=== PATIENT | female | born 1965 | race Caucasian/White ===

== ENCOUNTER 2022-04-08 16:44 | Emergency (ER) | payer OTHER, SELFPAY ==
[2022-04-08 16:55] VITALS: BP 136/81; PULSE 78; RESP 20; TEMP 36.7; O2SAT 99; BMI 26.6
--- NOTE | 2022-04-08 19:12 | PC.NURSE ---
Assumed care of pt Pt c/o worsening pain to LT wrist. Per pt, has RA and complicated injury to wristt from years ago. Pt been receiving cortisone shot for RA but implementation manager stopped it because pt was told she was in remission from RA. Last shot was in January. Per pt, pain has been worsening since and has not taken any pain medication. Denies any new injuries No obvious swelling/deformity
--- NOTE | 2022-04-08 19:21 | ED_ITS ---
HPI - Extremity Problem General Chief complaint: Extremity Problem Stated complaint: L hand pain Time Seen by Provider: 04/08/22 19:21 Source: patient Mode of arrival: ambulatory Limitations: no limitations History of Present Illness HPI Narrative: Patient with History of rheumatoid arthritis taking Humira injections every 2 weeks and steroid shots in the wrist joints every 3 months comes here for increasing pain left wrist for last 1 week patient has seen geropsychologist 1 week ago and he does not think that patient has active rheumatoid arthritis thinks that patient is in remission patient unable to sleep because of pain no paresthesias no recent injury no other joints involved Related Data Previous Rx's Medication Instructions Recorded tramadol 50 mg tablet 50 mg PO Q6H PRN #20 tab 04/08/22 Allergies Allergy/AdvReac Type Severity Reaction Status Date / Time erythromycin base Allergy Hives Verified 04/08/22 16:57 Review of Systems Review of Systems: Yes all other systems are reviewed and are negative PMFSH Social History Social History Advance Directives: No Advance Directives Information Provided: No Physical Exam Vital Signs: Vital Signs: Last Vital Signs Temp 98.0 F 04/08/22 16:55 Pulse 78 04/08/22 16:55 Resp 20 04/08/22 16:55 BP 136/81 04/08/22 16:55 Pulse Ox 99 04/08/22 16:55 BMI result Body Mass Index 26.6 Const: General: comfortable and no acute distress Extrem: Elbow/forearm/wrist images: 1. 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
[2022-04-08] MEDS: dexAMETHasone 2 MG TABLET 10 MG PO (20:15)
[2022-04-08] MEDS: traMADoL HCL 50 MG TABLET PO (20:15)
== END 2022-04-08 20:19 | disposition home or self-care (01) ==
LOC: HO.ED 20:06
PROVIDERS: Emergency Provider Internal Medicine; PCP Internal Medicine
DX: M19.032 Primary osteoarthritis, left wrist (principal); M06.9 Rheumatoid arthritis, unspecified; Z79.899 Other long term (current) drug therapy
CPT/HCPCS: 99282; 99283; J8540

== ENCOUNTER 2022-04-11 06:28 | Emergency (ER) | payer OTHER, SELFPAY ==
--- NOTE | ~2022-04-11 | XR_ITS ---
EXAMINATION: LEFT HAND AND WRIST. CLINICAL INFORMATION: Pain and erythema. History of rheumatoid arthritis COMPARISON: None TECHNIQUE: 4 views FINDINGS: There are small osseous fragment seen adjacent to the distal radial scaphoid joint with no bony erosive changes. There is no acute fracture or dislocation seen. There is no deformity involving the MCP joints. There is minimal loss of PIP and DIP joints. 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 XR/XR hand wrist LT IMPRESSION: Multiple osseous bodies seen adjacent to the radioscaphoid joint and dorsal wrist as well as volar aspect of wrist. No acute fracture or lytic process seen. There is mild dorsal and volar wrist soft tissue swelling. The findings could represent early rheumatoid arthritis however superimposed degenerative arthritis is suspected. There is no visible acute fracture or dislocation.
[2022-04-11 06:39] VITALS: BP 115/78; PULSE 84; RESP 18; TEMP 36.1; O2SAT 98; BMI 26.6
--- NOTE | 2022-04-11 07:46 | ED_ITS ---
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 Related Data Previous Rx's Medication Instructions Recorded tramadol 50 mg tablet 50 mg PO Q6H PRN #20 tab 04/08/22 ketorolac 10 mg tablet 10 mg PO Q6H PRN 5 Days #20 tab 04/11/22 Allergies Allergy/AdvReac Type Severity Reaction Status Date / Time erythromycin base Allergy Hives Verified 04/08/22 16:57 Review of Systems Review of Systems: Pertinent positives and negatives as stated in HPI 10 point review of systems is otherwise negative. PMFSH Past Medical History Source: nursing notes reviewed Social History Social History Advance Directives: No Advance Directives Information Provided: No Physical Exam ED Vital Signs: Vital Signs - 24 hr 04/11/22 06:39 04/11/22 09:29 Temperature 97.0 F Pulse Rate 84 68 Respiratory Rate 18 16 Blood Pressure 115/78 105/73 Pulse Oximetry 98 98 BMI result Body Mass Index 26.6 VITAL SIGNS: Reviewed. GENERAL: Well developed, well nourished, in no acute distress. HEAD: Normocephalic/atraumatic EYES: PERRLA, EOMI EARS: Ext canals without abnormality NOSE: Nares patent bilateral OROPHARYNX: no oral lesions noted, posterior pharynx clear LUNGS: Normal breath sounds. No adventitious sounds or accessory muscle use. SpO2<98> CARDIOVASCULAR: Regular rate and rhythm without noted murmurs ABDOMEN: Soft, non-tender, non-distended with bowel sounds. LEFT HAND: There is mild erythema at the base of the left thumb without induration patient is noted to be able to move digits without significant difficulty and there does not appear to be significant swelling of any the remaining joints of that hand. SKIN: Inspection of the skin reveals no rashes NEUROLOGIC: Alert and oriented x 4. Strength and sensation to light touch were grossly intact x 4. Course Course Course Narrative: 56-year-old female with history and clinical presentation consistent with possible RA flare but she was seen here 3 days ago and given enough tramadol for 4 days, unsure if she has completely depleted her supply of tramadol and is back for more pain medication. Although she does not report prednisone or Decadron in her allergies she reported to the previous provider as well as myself that she cannot take steroids for a vague reason. She denies any traumatic event of this hand. Review of imaging studies: Multiple osseous bodies seen adjacent to the radioscaphoid joint and dorsal wrist as well as volar aspect of wrist. No acute fracture or lytic process seen. There is mild dorsal and volar wrist soft tissue swelling. The findings could represent early rheumatoid arthritis however superimposed degenerative arthritis is suspected. On re-evaluation patient feels mildly better but is very frustrated with her interactions with her e commerce web developer. She is amenable to trying the course of Toradol as well as a hand splint and work note. She was strongly encouraged to call both e commerce web developer as well as her primary care provider. Discharge Plan Discharge Clinical Impression: Rheumatoid arthritis flare Patient Disposition: Home, Self-Care Instructions: Rheumatoid Arthritis (ED) Additional Instructions: 1. Resume all home medications as prescribed. 2. You have been given a prescription for Toradol and should take this medication with milk or food, it is an anti-inflammatory and should gradually help with your pain control. Recommend that you take this in conjunction with [id number] Tylenol, 1000 mg, every 6 hours for additional pain relief. 3. Recommend splinting your hand for at least 3 days and calling both your e commerce web developer and your primary care provider today. They can easily request my note. I have included your x-ray findings within my note. Return to the ER for worsening symptoms. Prescriptions: New ketorolac 10 mg tablet 10 mg PO Q6H PRN (Reason: pain) 5 Days Qty: 20 0RF Rx Instructions: Patient received Toradol in the emergency room. No Action tramadol 50 mg tablet 50 mg PO Q6H PRN (Reason: pain) Qty: 20 0RF Referrals: Vee Allan MD [Primary Care Provider] - Stand Alone Forms: Work/School Release
[2022-04-11] MEDS: Acetaminophen 325 MG TABLET 975 MG PO (08:03)
[2022-04-11] MEDS: Ketorolac Tromethamine 15 MG/ML VIAL IM (08:04)
[2022-04-11 09:29] VITALS: BP 105/73; PULSE 68; RESP 16; O2SAT 98
== END 2022-04-11 10:23 | disposition home or self-care (01) ==
PROVIDERS: Emergency Provider Student in an Organized Health Care Education/Training Program; PCP Internal Medicine
DX: M06.9 Rheumatoid arthritis, unspecified (principal); M79.642 Pain in left hand; Z79.899 Other long term (current) drug therapy
CPT/HCPCS: 73110; 73130; 96372; 99283; 99284; J1885

== ENCOUNTER 2022-07-04 18:23 | Emergency (ER) | payer OTHER, SELFPAY | END 2022-07-04 19:35 | disposition left against medical advice (07) | PROVIDERS: Emergency Provider Emergency Medicine; PCP Internal Medicine | DX: R53.1 Weakness (principal) ==

== ENCOUNTER 2022-07-29 16:01 | Outpatient (REF) | payer OTHER, SELFPAY ==
[2022-07-29 17:53] LABS: C Reactive Protein 0.06 mg/dL (< or = 0.50)
[2022-07-29 18:21] LABS: Erythrocyte Sedimentation Rate 7 MM/HR (0-20)
== END 2022-07-29 16:02 | disposition home or self-care (01) ==
LOC: HO.LAB 16:01
PROVIDERS: PCP Internal Medicine; Visit Provider Internal Medicine Rheumatology
DX: M05.9 Rheumatoid arthritis with rheumatoid factor, unspecified (principal)
CPT/HCPCS: 36415; 85652; 86140

== ENCOUNTER 2022-08-12 16:16 | Outpatient (REF) | payer OTHER, SELFPAY ==
[2022-08-12 16:26] LABS: MANUAL DIFF FLAG NO
[2022-08-12 16:39] LABS: Basophils Percent Auto 0.4 % (0-2); Eosinophils Absolute Auto 0.1 X10*3/uL (0.0-0.4); Eosinophils Percent Auto 1.5 % (0-4); Hematocrit 39.6 % (37.0-47.0); Hemoglobin 13.8 g/dl (12.0-16.0); Imm Gran Abs Auto 0.02 X10*3/uL (0.00-0.03); Imm Gran Pct Auto 0.3 % (0.0-0.4); Lymphocytes Absolute Auto 3.4 X10*3/uL (1.2-4.9); Mean Corpuscular HGB Conc 34.8 g/dl (31.0-35.0); Mean Corpuscular Hemoglobin 33.6 pg (27.0-33.0); Mean Corpuscular Volume 96.4 fL (80.0-98.0); Mean Platelet Volume 9.6 fL (9.4-12.3); Monocytes Absolute Auto 0.7 X10*3/uL (0.1-1.2); Monocytes Percent Auto 8.3 % (2-11); Neutrophils Absolute Auto 3.8 x10*3/uL (2.0-8.3); Neutrophils Percent Auto 47.5 % (45-73); Platelet Count 331 X10*3/uL (160-400); Red Blood Count 4.11 X10*6/uL (4.20-5.50); Red Cell Distribution Width 12.6 % (11.0-16.0)
[2022-08-12 16:58] LABS: C Reactive Protein 0.06 mg/dL (< or = 0.50)
[2022-08-12 17:24] LABS: Erythrocyte Sedimentation Rate 7 MM/HR (0-20)
== END 2022-08-12 16:17 | disposition home or self-care (01) ==
LOC: HO.LAB 16:16
PROVIDERS: PCP Internal Medicine; Visit Provider Internal Medicine Rheumatology
DX: M05.9 Rheumatoid arthritis with rheumatoid factor, unspecified (principal)
CPT/HCPCS: 36415; 85025; 85652; 86140

== ENCOUNTER 2022-11-10 13:58 | Emergency (ER) | payer OTHER, SELFPAY ==
--- NOTE | 2022-11-10 | ECG_ITS ---
Test Reason : WEAKNESS Blood Pressure : / mmHG Vent. Rate : 085 BPM Atrial Rate : 085 BPM P-R Int : 142 ms QRS Dur : 064 ms QT Int : 376 ms P-R-T Axes : 025 012 025 degrees QTc Int : 447 ms Normal sinus rhythm Low voltage QRS Nonspecific T wave abnormality Abnormal ECG No previous ECGs available Referred By: Generic ED Physician Electronically Signed By:ANAHI MARRERO
--- NOTE | ~2022-11-10 | XR_ITS ---
EXAMINATION: XR CHEST CLINICAL INFORMATION: Left arm pain and weakness. COMPARISON: No similar priors. TECHNIQUE: PA view of the chest was obtained. FINDINGS: Normal appearance of the cardiomediastinal silhouette. No focal airspace opacity, pleural effusion or pneumothorax. No acute osseous abnormalities. The visualized upper abdomen is within normal limits. XR/XR chest 1V IMPRESSION: 1. No acute cardiopulmonary findings. 2. No acutely displaced rib fractures.
--- NOTE | ~2022-11-10 | CT_ITS ---
EXAMINATION: CT HEAD WITH CONTRAST CT SOFT TISSUE NECK WITH CONTRAST CLINICAL INFORMATION: Eye pain. Neck pain and swelling. COMPARISON: None TECHNIQUE: Following the administration of 85 mL of Omnipaque 350 intravenous contrast, helical imaging was performed in the axial plane with generation of coronal and sagittal reformatted images. This CT examination was performed using dose optimization techniques as appropriate, variously including the following: *Automated exposure control *Adjustment of mA and/or kV according to patient size (this includes techniques or standardized protocols for targeted exams where dose is matched to indication/reason for exam; i.e. extremities or head) *Use of iterative reconstruction technique DLP: 1245 mGy-cm FINDINGS: Head: There is no evidence of acute intracranial hemorrhage or territorial infarction. No abnormal mass effect or midline shift is seen. Inman to white matter differentiation is well preserved. No extra-axial fluid collections are identified. No hydrocephalus. No significant volume loss. There is no abnormal attenuation within the brain parenchyma. No abnormal intra-axial or extra-axial enhancement. No acute osseous or soft tissue abnormality. Orbits and globes are normal. The mastoid air cells and visualized portions of the paranasal sinuses are well aerated. NECK: No cervical adenopathy is identified. The parotid glands are homogeneous in attenuation. The submandibular glands are normal. No contour abnormality or pathologic enhancement is seen within the oral cavity or pharyngeal mucosal space. The laryngeal structures are normal. The parapharyngeal fat is preserved. The carotid sheath vasculature opacify normally. No extra mucosal soft tissue mass or fluid collection is seen. No retropharyngeal fluid collection is seen. The thyroid gland is normal. The superior mediastinum is unremarkable. The lung apices are clear. The mastoid air cells and visualized portions of the paranasal sinuses are well-aerated. The temporomandibular joints are normal. No periapical disease is identified. No osseous abnormalities are seen. Small endplate osteophytes present throughout the cervical spine. CT/CT soft tissue neck w IV con IMPRESSION: * No acute intracranial pathology. Normal CT imaging appearance of the brain. * No neck mass. Normal CT of the neck. This result was discussed with Jaelyn Medina at 11/10/2022 11:14 PM and it was ascertained that the content and urgency of the report was understood at the time of direct communication.
[2022-11-10 15:37] VITALS: BP 148/83; PULSE 87; RESP 16; TEMP 37.2; O2SAT 98; BMI 29.2
[2022-11-10 16:07] LABS: MANUAL DIFF FLAG NO
[2022-11-10 16:11] LABS: Basophils Percent Auto 0.4 % (0-2); Eosinophils Absolute Auto 0.2 X10*3/uL (0.0-0.4); Eosinophils Percent Auto 1.9 % (0-4); Hematocrit 41.7 % (37.0-47.0); Hemoglobin 14.2 g/dl (12.0-16.0); Imm Gran Abs Auto 0.03 X10*3/uL (0.00-0.03); Imm Gran Pct Auto 0.3 % (0.0-0.4); Lymphocytes Absolute Auto 2.9 X10*3/uL (1.2-4.9); Lymphocytes Percent Auto 31.9 % (20-40); Mean Corpuscular HGB Conc 34.1 g/dl (31.0-35.0); Mean Corpuscular Hemoglobin 32.2 pg (27.0-33.0); Mean Corpuscular Volume 94.6 fL (80.0-98.0); Mean Platelet Volume 9.3 fL (9.4-12.3); Monocytes Absolute Auto 0.7 X10*3/uL (0.1-1.2); Monocytes Percent Auto 7.6 % (2-11); Neutrophils Absolute Auto 5.2 x10*3/uL (2.0-8.3); Neutrophils Percent Auto 57.9 % (45-73); Platelet Count 366 X10*3/uL (160-400); Red Blood Count 4.41 X10*6/uL (4.20-5.50); Red Cell Distribution Width 13.2 % (11.0-16.0); White Blood Count 8.9 X10*3/uL (4.8-10.8)
[2022-11-10 16:31] LABS: Alanine Aminotransferase 24 U/L (0-31); Albumin Level 4.7 g/dL (3.5-5.0); Alkaline Phosphatase 135 U/L (39-117); Anion Gap 14 (12-20); Aspartate Amino Transferase 24 U/L (5-31); Bilirubin Total 0.4 mg/dL (0.0-1.0); Blood Urea Nitrogen 10 mg/dL (9-16); Calcium 9.8 mg/dL (8.4-10.2); Carbon Dioxide 26 mmol/L (22-29); Chloride 102 mmol/L (96-108); Creatinine Clr Calc Pharmacy 79.8; Estimated Glomerular Filt Rate > 60; Glucose Random 98 mg/dL (60-115); Potassium 4.4 mmol/L (3.3-5.1); Sodium 138 mmol/L (135-145); Total Protein 7.6 g/dL (6.5-8.0)
--- NOTE | 2022-11-10 20:27 | ED.GENADULT ---
HPI - General Adult General Chief complaint: Weakness Stated complaint: weak, pain in R eye, not feeling well Time Seen by Provider: 11/10/22 20:25 Source: patient Mode of arrival: ambulatory Limitations: no limitations History of Present Illness HPI narrative: 57-year-old female presents with multiple concerns including right-sided arm pain, ear pain, throat pain, throat swelling, weakness for 3 weeks, right-sided eye pain on movement and paresthesia. Onset (ago): week(s) (3) Location: head and neck Severity: moderate Quality: aching Pain Consistency: intermittent Relieving factors: none Associated symptoms: headaches and weakness Related Data Home Medications Medication Instructions Recorded Confirmed adalimumab 40 mg/0.8 mL 40 mg subcut Q2W 07/27/22 07/27/22 subcutaneous pen kit (Humira Pen) ascorbic acid (vitamin C) 1,000 mg 1 g PO DAILY 07/27/22 07/27/22 capsule cholecalciferol (vitamin D3) 25 25 mcg PO DAILY 07/27/22 07/27/22 mcg (1,000 unit) capsule Previous Rx's Medication Instructions Recorded tramadol 50 mg tablet 50 mg PO Q6H PRN pain #20 tabs 04/08/22 celecoxib 200 mg capsule (Celebrex) 200 mg PO BID #60 caps 08/16/22 prednisone 20 mg tablet 40 mg PO DAILY 4 days #8 tabs 11/10/22 Allergies Allergy/AdvReac Type Severity Reaction Status Date / Time erythromycin base Allergy Hives Verified 08/16/22 08:30 Review of Systems Review of Systems: Constitutional: No Fever, No Chills ENT/Mouth: Positive Ear Pain, No Hoarseness, positive sore throat Eyes: Positive right Eye Pain, No Swelling, No Redness, No Foreign Body Cardiovascular: No Chest Pain, No SOB Respiratory: No Cough, No Dyspnea Gastrointestinal: No Nausea, No Vomiting, No Diarrhea, No abdominal Pain Genitourinary: No Dysuria, No Hematuria Musculoskeletal: positive neck pain, No Myalgias, No Joint Swelling Skin: No Skin lacerations, No rash Neuro: Positive Weakness, No Numbness, positive Paresthesias, No Loss of Consciousness, No Dizziness, positive Headache Psych: No Anxiety/Panic, No Depression Heme/Lymph: no easy bruising, no Lymphadenopathy Yes all other systems are reviewed and are negative PENDING SALE TO [facility] Past Medical History Attestation statement: The following information was validated with the patient. Source: old records reviewed Social History Social History Household Members: Spouse and Family Housing: House Alcohol intake: never Patient Tobacco Use Status: Current everyday Tobacco user Tobacco use type: Cigarette Cigarettes Per Day: 10 Years Smoked: 15 years Smoked in Last 30 Days: Yes e-Cigarette/Vaping Use: Never Used Use of substances other than those prescribed or required for medical reasons: No Advance Directives: No Advance Directives Information Provided: Yes service: No Current occupational status: employed 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 Physical Exam ED Vital Signs: Vital Signs - 24 hr 11/10/22 15:37 11/10/22 20:41 11/10/22 22:00 Temperature 99.0 F 98.5 F 98.2 F Pulse Rate 87 77 70 Respiratory Rate 16 16 16 Blood Pressure 148/83 H 114/90 H 122/79 Pulse Oximetry 98 97 97 Oxygen Delivery Method Room Air Room Air Room Air 11/10/22 23:48 Temperature 98.1 F Pulse Rate 66 Respiratory Rate 16 Blood Pressure 139/78 Pulse Oximetry 97 Oxygen Delivery Method Room Air BMI result Body Mass Index 29.2 Appearance: Alert. Oriented X3. No acute distress. Eyes: Pupils equal, round and reactive to light. ENT: Pharynx normal. Tympanic membranes normal. Neck: Normal inspection. Neck supple. CVS: Normal heart rate and rhythm. Pulses normal. Respiratory: No respiratory distress. Breath sounds normal. Abdomen: Soft and nontender. Skin: Skin warm and dry. Normal skin color. Normal skin turgor. Extremities: No lower extremity edema. Gait balanced and coordinated Neuro: No motor deficit. No sensory deficit. Cranial nerves 2-12 intact Course Course Course Narrative: Patient has been in the waiting room for 6 hours and 30 minutes. 20:27 57-year-old female presents with multiple concerns, has had intermittent headaches points to the right parietal, and has right-sided eye pain on movement, feels weak, has neck pain and feels that her neck is swollen, has a history of Rock's thyroiditis, has paresthesia going down the right lower extremity and has bilateral foot pain. Patient is followed by Rheumatology, and has a history of RA and used to be on Humira. Patient has had a prior history of this kind of eye pain and had a negative workup in the past. Patient is very concerned about autoimmune disease. 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 Patient recalls having the same kind of eye pain about a year ago, and has not felt well for approximately 3 weeks. She has not had any fevers, chills, no travel outside of the country, no history of carcinoma, no sick contacts, and no changes in weight. While patient's symptoms are vague, are recurrent, there could possibly be a concern for autoimmune disease, MS, thyroid tumor, Lyme disease, will order labs accordingly and CT study of head soft tissue neck. Other possibilities for patient's symptoms, could be migraine, tension headache, less likely to be temporal arteritis, acute angle glaucoma, orbital cellulitis. Patient's lab values are unremarkable, CT scan of head, orbits, and soft tissue neck are negative for acute findings requiring emergent intervention. Will have patient follow-up with Neurology, will have patient's primary care physician refer to a neurologist. Patient will continue to follow-up with rheumatology on the . Patient understands that her Lyme tests are pending. She will continue all of her medications that previously prescribed. While I did not find a source of this patient's discomfort, she did feel satisfied with the workup, and negative CT scan findings. I did offer patient prednisone, patient had some vague adverse symptoms with prednisone however she agrees to take this medication, as this medication may help with inflammation. Patient agrees with plan of care discharge home. Verbalized understanding of signs symptoms indicating need for emergent intervention Medications Administered Discontinued Medications Generic Name Dose Route Start Last Admin Trade Name Dillon PRN Reason Stop Dose Admin Iohexol 100 ml 11/10/22 22:04 11/10/22 22:05 Iohexol 350 Mg/Ml 100 Ml Infus..Btl IV 11/10/22 22:05 85 ml ONCE ONE Administration Prednisone 40 mg 11/10/22 23:44 11/10/22 23:54 Prednisone 20 Mg Tablet PO 11/10/22 23:45 40 mg ONCE ONE Administration Medical Decision Making Differential Diagnosis Differential Diagnoses: The differential diagnosis associated with the presentation includes Migraine, brain lesions, thyroid tumor, Lyme, COVID, influenza, RSV Admission/Observation Consideration of admission/observation: Escalation of care including admission/observation considered If abnormal findings, plan for admission Lab Data MDM Lab Attestation statement: I reviewed the patient's lab results. 11/10/22 16:02 11/10/22 16:02 Labs: Lab Results 11/10/22 11/10/22 11/10/22 Range/Units 16:02 16:02 16:02 WBC 8.9 (4.8-10.8) X10*3/uL RBC 4.41 (4.20-5.50) X10*6/uL Hgb 14.2 (12.0-16.0) g/dl Hct 41.7 (37.0-47.0) % MCV 94.6 (80.0-98.0) fL MCH 32.2 (27.0-33.0) pg MCHC 34.1 (31.0-35.0) g/dl RDW 13.2 (11.0-16.0) % Plt Count 366 (160-400) X10*3/uL MPV 9.3 L (9.4-12.3) fL Immature Gran % (Auto) 0.3 (0.0-0.4) % Neut % (Auto) 57.9 (45-73) % Lymph % (Auto) 31.9 (20-40) % [place] % (Auto) 7.6 (2-11) % Eos % (Auto) 1.9 (0-4) % Baso % (Auto) 0.4 (0-2) % Lymph # (Auto) 2.9 (1.2-4.9) X10*3/uL [place] # (Auto) 0.7 (0.1-1.2) X10*3/uL Eos # (Auto) 0.2 (0.0-0.4) X10*3/uL Baso # (Auto) 0.0 (0.0-0.2) X10*3/uL Abs Immat Gran (auto) 0.03 (0.00-0.03) X10*3/uL Absolute Neuts (auto) 5.2 (2.0-8.3) x10*3/uL Absolute Nucleated RBC 0.000 (0.0-0.012) X10*3/uL Nucleated RBC % (auto) 0.0 (0.0-0.2) /100WBC ESR (0-20) MM/HR Hold Purple Top SEE NOTE Sodium 138 (135-145) mmol/L Potassium 4.4 (3.3-5.1) mmol/L Chloride 102 (96-108) mmol/L Carbon Dioxide 26 (22-29) mmol/L Anion Gap 14 (12-20) BUN 10 (9-16) mg/dL Creatinine 0.80 (0.5-1.4) mg/dL Estim Creat Clear Calc 79.8 Estimated GFR > 60 Random Glucose 98 (60-115) mg/dL Calcium 9.8 (8.4-10.2) mg/dL Magnesium (1.6-2.6) mg/dL Total Bilirubin 0.4 (0.0-1.0) mg/dL AST 24 (5-31) U/L ALT 24 (0-31) U/L Alkaline Phosphatase 135 H (39-117) U/L Troponin I High Sens (<3.5-17.0) ng/L C-Reactive Protein (< or = 0.50) mg/dL Total Protein 7.6 (6.5-8.0) g/dL Albumin 4.7 (3.5-5.0) g/dL TSH (0.32-4.0) uIU/mL Urine Color Urine Appearance Urine pH (5.0-9.0) Ur Specific [place] (1.005-1.025) Urine Protein (Neg-Trace) mg/dL Urine Glucose (UA) (Negative) mg/dL Urine Ketones (Negative) mg/dL Urine Blood (Negative) Urine Nitrite (Negative) Ur Leukocyte Esterase (Negative) Urine RBC (0-2) /HPF Urine WBC (0-5) /HPF Ur Squamous Epith Cells (0-2) /HPF Urine Bacteria (None Seen) Hyaline Casts (0-2) /LPF Influenza Type A (PCR) (Negative) Influenza Type B (PCR) (Negative) RSV RNA Qual (PCR) (Negative) SARS-CoV-2 RNA (RT-PCR) (Negative) 11/10/22 11/10/22 11/10/22 Range/Units 20:49 20:49 20:49 WBC (4.8-10.8) X10*3/uL RBC (4.20-5.50) X10*6/uL Hgb (12.0-16.0) g/dl Hct (37.0-47.0) % MCV (80.0-98.0) fL MCH (27.0-33.0) pg MCHC (31.0-35.0) g/dl RDW (11.0-16.0) % Plt Count (160-400) X10*3/uL MPV (9.4-12.3) fL Immature Gran % (Auto) (0.0-0.4) % Neut % (Auto) (45-73) % Lymph % (Auto) (20-40) % [place] % (Auto) (2-11) % Eos % (Auto) (0-4) % Baso % (Auto) (0-2) % Lymph # (Auto) (1.2-4.9) X10*3/uL [place] # (Auto) (0.1-1.2) X10*3/uL Eos # (Auto) (0.0-0.4) X10*3/uL Baso # (Auto) (0.0-0.2) X10*3/uL Abs Immat Gran (auto) (0.00-0.03) X10*3/uL Absolute Neuts (auto) (2.0-8.3) x10*3/uL Absolute Nucleated RBC (0.0-0.012) X10*3/uL Nucleated RBC % (auto) (0.0-0.2) /100WBC ESR 8 (0-20) MM/HR Hold Purple Top Sodium (135-145) mmol/L Potassium (3.3-5.1) mmol/L Chloride (96-108) mmol/L Carbon Dioxide (22-29) mmol/L Anion Gap (12-20) BUN (9-16) mg/dL Creatinine (0.5-1.4) mg/dL Estim Creat Clear Calc Estimated GFR Random Glucose (60-115) mg/dL Calcium (8.4-10.2) mg/dL Magnesium (1.6-2.6) mg/dL Total Bilirubin (0.0-1.0) mg/dL AST (5-31) U/L ALT (0-31) U/L Alkaline Phosphatase (39-117) U/L Troponin I High Sens < 3.5 (<3.5-17.0) ng/L C-Reactive Protein (< or = 0.50) mg/dL Total Protein (6.5-8.0) g/dL Albumin (3.5-5.0) g/dL TSH (0.32-4.0) uIU/mL Urine Color Yellow Urine Appearance Clear Urine pH 6.5 (5.0-9.0) Ur Specific [place] 1.015 (1.005-1.025) Urine Protein Negative (Neg-Trace) mg/dL Urine Glucose (UA) Negative (Negative) mg/dL Urine Ketones Negative (Negative) mg/dL Urine Blood Negative (Negative) Urine Nitrite Negative (Negative) Ur Leukocyte Esterase Small (1+) H (Negative) Urine RBC 0-2 (0-2) /HPF Urine WBC 0-5 (0-5) /HPF Ur Squamous Epith Cells 0-2 (0-2) /HPF Urine Bacteria None Seen (None Seen) Hyaline Casts 0-2 (0-2) /LPF Influenza Type A (PCR) (Negative) Influenza Type B (PCR) (Negative) RSV RNA Qual (PCR) (Negative) SARS-CoV-2 RNA (RT-PCR) (Negative) 11/10/22 11/10/22 Range/Units 20:50 20:50 WBC (4.8-10.8) X10*3/uL RBC (4.20-5.50) X10*6/uL Hgb (12.0-16.0) g/dl Hct (37.0-47.0) % MCV (80.0-98.0) fL MCH (27.0-33.0) pg MCHC (31.0-35.0) g/dl RDW (11.0-16.0) % Plt Count (160-400) X10*3/uL MPV (9.4-12.3) fL Immature Gran % (Auto) (0.0-0.4) % Neut % (Auto) (45-73) % Lymph % (Auto) (20-40) % [place] % (Auto) (2-11) % Eos % (Auto) (0-4) % Baso % (Auto) (0-2) % Lymph # (Auto) (1.2-4.9) X10*3/uL [place] # (Auto) (0.1-1.2) X10*3/uL Eos # (Auto) (0.0-0.4) X10*3/uL Baso # (Auto) (0.0-0.2) X10*3/uL Abs Immat Gran (auto) (0.00-0.03) X10*3/uL Absolute Neuts (auto) (2.0-8.3) x10*3/uL Absolute Nucleated RBC (0.0-0.012) X10*3/uL Nucleated RBC % (auto) (0.0-0.2) /100WBC ESR (0-20) MM/HR Hold Purple Top Sodium (135-145) mmol/L Potassium (3.3-5.1) mmol/L Chloride (96-108) mmol/L Carbon Dioxide (22-29) mmol/L Anion Gap (12-20) BUN (9-16) mg/dL Creatinine (0.5-1.4) mg/dL Estim Creat Clear Calc Estimated GFR Random Glucose (60-115) mg/dL Calcium (8.4-10.2) mg/dL Magnesium 2.0 (1.6-2.6) mg/dL Total Bilirubin (0.0-1.0) mg/dL AST (5-31) U/L ALT (0-31) U/L Alkaline Phosphatase (39-117) U/L Troponin I High Sens (<3.5-17.0) ng/L C-Reactive Protein 0.09 (< or = 0.50) mg/dL Total Protein (6.5-8.0) g/dL Albumin (3.5-5.0) g/dL TSH 2.01 (0.32-4.0) uIU/mL Urine Color Urine Appearance Urine pH (5.0-9.0) Ur Specific [place] (1.005-1.025) Urine Protein (Neg-Trace) mg/dL Urine Glucose (UA) (Negative) mg/dL Urine Ketones (Negative) mg/dL Urine Blood (Negative) Urine Nitrite (Negative) Ur Leukocyte Esterase (Negative) Urine RBC (0-2) /HPF Urine WBC (0-5) /HPF Ur Squamous Epith Cells (0-2) /HPF Urine Bacteria (None Seen) Hyaline Casts (0-2) /LPF Influenza Type A (PCR) NEGATIVE (Negative) Influenza Type B (PCR) NEGATIVE (Negative) RSV RNA Qual (PCR) NEGATIVE (Negative) SARS-CoV-2 RNA (RT-PCR) NEGATIVE (Negative) Independent Interpretation I performed an independent interpretation of an: EKG, Plain X-Ray and CT Scan Interpretation: Vent. rate 85 BPM PA interval 142 ms QRS duration 64 ms QT/QTc 376/447 ms P-R-T axes 25 12 25 Normal sinus rhythm Low voltage QRS Nonspecific T wave abnormality Abnormal ECG No previous ECGs available 10-NOV-2022 15:52:27 Radiology Impression Discussion of test interpretation with radiology: I discussed test interpretation with the radiologist and I have reviewed the radiologist's reading. Radiologist Impression: FINDINGS: Head: There is no evidence of acute intracranial hemorrhage or territorial infarction. No abnormal mass effect or midline shift is seen. Inman to white matter differentiation is well preserved. No extra-axial fluid collections are identified. No hydrocephalus. No significant volume loss. There is no abnormal attenuation within the brain parenchyma. No abnormal intra-axial or extra-axial enhancement. No acute osseous or soft tissue abnormality. Orbits and globes are normal. The mastoid air cells and visualized portions of the paranasal sinuses are well aerated. NECK: No cervical adenopathy is identified. The parotid glands are homogeneous in attenuation. The submandibular glands are normal. No contour abnormality or pathologic enhancement is seen within the oral cavity or pharyngeal mucosal space. The laryngeal structures are normal. The parapharyngeal fat is preserved. The carotid sheath vasculature opacify normally. No extra mucosal soft tissue mass or fluid collection is seen. No retropharyngeal fluid collection is seen. The thyroid gland is normal. The superior mediastinum is unremarkable. The lung apices are clear. The mastoid air cells and visualized portions of the paranasal sinuses are well-aerated. The temporomandibular joints are normal. No periapical disease is identified. No osseous abnormalities are seen. Small endplate osteophytes present throughout the cervical spine. CT/CT head/brain w IV con IMPRESSION: *? No acute intracranial pathology. Normal CT imaging appearance of the brain. *? No neck mass. Normal CT of the neck. ? This result was discussed with Jaelyn Medina at 11/10/2022 11:14 PM and it was ascertained that the content and urgency of the report was understood at the time of direct communication. EXAMINATION: XR CHEST CLINICAL INFORMATION: Left arm pain and weakness. COMPARISON: No similar priors. TECHNIQUE: PA view of the chest was obtained. FINDINGS: Normal appearance of the cardiomediastinal silhouette. No focal airspace opacity, pleural effusion or pneumothorax. No acute osseous abnormalities. The visualized upper abdomen is within normal limits. XR/XR chest 1V IMPRESSION: 1.? No acute cardiopulmonary findings. 2.? No acutely displaced rib fractures. ? External Record Review External record reviewed: Outpatient record and Prior outpatient labs Prescription Management I considered prescription management with: Other (Prednisone) Discharge Plan Discharge Clinical Impression: Headache, Neck pain, Eye pain, Paresthesia Patient Disposition: Home, Self-Care Instructions: Eye Pain (ED), General Headache (ED), Neck Pain (ED) Additional Instructions: You were evaluated for multiple concerns. CT of head, facial bones orbits, and soft tissue neck with contrast negative for acute findings requiring emergent intervention. Please continue to follow-up with your [employer] senior officer as scheduled on November 21. I prescribed prednisone 40 mg daily for the next 5 days. Please continue to take your prior medications as prescribed. You may consider following up with Neurology. Please follow-up with primary care for neurology referral. Follow-up with ophthalmology. Thank you for choosing this emergency department for evaluation. Please follow-up with primary care physician as needed. Return to the emergency department for any new, concerning, or worsening symptoms. Prescriptions: New prednisone 20 mg tablet 40 mg PO DAILY 4 Days Qty: 8 0RF Rx Instructions: Start on 11/12/2022. Given at midnight on 11/11/2022 No Action tramadol 50 mg tablet 50 mg PO Q6H PRN (Reason: pain) Qty: 20 0RF celecoxib [Celebrex] 200 mg capsule 200 mg PO BID Qty: 60 1RF Humira Pen 40 mg/0.8 mL pen injector kit 40 mg subcut Q2W Rx Instructions: start on day 29 of therapy cholecalciferol (vitamin D3) 25 mcg (1,000 unit) capsule 25 mcg PO DAILY ascorbic acid (vitamin C) 1,000 mg capsule 1 g PO DAILY Referrals: Jalil Paulson MD [Physician] - 2 weeks (As needed) Vee Allan MD [Primary Care Provider] - 2 weeks (As needed) Terence Olvera MD [Physician] - 10 days (As scheduled on November 21) Interventions: ED Discharge Assessment Last Done: 11/11/22 00:03 Discharge Date/Time: 11/11/22 00:04
[2022-11-10 20:41] VITALS: BP 114/90; PULSE 77; RESP 16; TEMP 36.9; O2SAT 97
[2022-11-10 20:58] LABS: Appearance Urine Clear; Color Urine Yellow; Glucose Urine UA Negative (Negative); Leukocyte Esterase Urine Small (1+) (Negative); Nitrite Urine Negative (Negative); PH 6.5 (5.0-9.0); Specific Gravity - Urine 1.015 (1.005-1.025); UMIC TRIGGER UACC YES; Urine Blood Negative (Negative); Urine Ketones Negative (Negative); Urine Protein Negative (Neg-Trace)
[2022-11-10 21:10] LABS: Bacteria Urine None Seen (None Seen); Hyaline Casts Urine 0-2 /LPF (0-2); RBC Urine 0-2 /HPF (0-2); Squamous Epithelial Cell Urine 0-2 /HPF (0-2); UACC Culture Trigger YES; WBC Urine 0-5 /HPF (0-5)
[2022-11-10 21:12] LABS: C Reactive Protein 0.09 mg/dL (< or = 0.50)
[2022-11-10 21:19] LABS: Troponin-I High Sensitivity < 3.5 ng/L (<3.5-17.0)
[2022-11-10 21:33] LABS: TSH reflex Free T4 2.01 uIU/mL (0.32-4.0)
[2022-11-10 21:37] LABS: Erythrocyte Sedimentation Rate 8 MM/HR (0-20)
[2022-11-10 21:37] LABS: Influenza A PCR NEGATIVE (Negative); Influenza B PCR NEGATIVE (Negative); Resp Syncy Virus RNA Qual PCR NEGATIVE (Negative); SARS COV2 PCR INHOUSE NEGATIVE (Negative)
[2022-11-10 22:00] VITALS: BP 122/79; PULSE 70; RESP 16; TEMP 36.8; O2SAT 97
[2022-11-10] MEDS: iohexoL 350 MG/ML 100 ML INFUS..BTL IV (22:05)
[2022-11-10 23:48] VITALS: BP 139/78; PULSE 66; RESP 16; TEMP 36.7; O2SAT 97
[2022-11-10] MEDS: predniSONE 20 MG TABLET 40 MG PO (23:54)
--- NOTE | 2022-11-11 00:02 | PC.NURSE ---
Pt medicated as ordered. IV line removed. Pt tolerated well. Discharge instructions reviewed with pt. Pt verbalizes understanding .
[2022-11-15 08:24] LABS: Lyme Abs Screen <0.90 index
== END 2022-11-11 00:04 | disposition home or self-care (01) ==
PROVIDERS: Nurse Practitioner Family; Emergency Provider Emergency Medicine; PCP Internal Medicine
DX: R51.9 Headache, unspecified (principal); M54.2 Cervicalgia; R20.2 Paresthesia of skin; M79.602 Pain in left arm; R07.89 Other chest pain; Z20.822 Contact with and (suspected) exposure to COVID-19; Z79.899 Other long term (current) drug therapy
CPT/HCPCS: 0241U; 36415; 70460; 70491; 71045; 80053; 81001; 83735; 84443; 84484; 85025; 85652; 86140; 86617; 86618; 87086; 93005; 99284; Q9967

== ENCOUNTER → 2023-01-23 14:28 | Outpatient (BNVA) | payer OTHER, SELFPAY | PROVIDERS: PCP Internal Medicine; Visit Provider Internal Medicine Rheumatology | DX: Z13.89 Encounter for screening for other disorder (principal) ==

== ENCOUNTER 2023-02-23 08:47 | Outpatient (REF) | payer OTHER, SELFPAY ==
--- NOTE | ~2023-02-23 | MR_ITS ---
EXAMINATION: MR ANKLE WITHOUT AND WITH CONTRAST, RIGHT CLINICAL INFORMATION: Right ankle pain and swelling, constant x8 months while on Humira. Pain is constant even with rest. COMPARISON: None available. TECHNIQUE: MRI of the right ankle is performed without and with contrast. Contrast dose 11.5 mL of Gadavist given intravenously. FINDINGS: SUBCUTANEOUS SOFT TISSUES: There is minimal metallic artifact overlying the skin along the posterior-medial aspect of the heel pad area. MUSCLES/TENDONS: Peroneal Brevis: Tendinosis and probable small split tear of the peroneal brevis as it passes below the fibula. No associated tenosynovitis. Peroneal longus intact. Remaining muscles and tendons normal. NEUROVASCULAR STRUCTURES/TARSAL TUNNEL: Normal. PLANTAR FASCIA: Minimal edema surrounding the plantar fascia in the plantar soft tissues/calcaneal fat pad. No measurable defect in the plantar fascia. LIGAMENTS: Marked attenuation of the anterior talofibular ligament compatible with an old high-grade partial tear. Remaining ligaments intact. BONE/CARTILAGE: Talocrural Joint: There is a small subchondral cystic focus along the posterior-medial dome of the talus. This measures 3 mm transverse, 5.5 mm AP and 3 mm in depth. Minimal if any overlying cartilage heterogeneity. This likely reflects a small subchondral cyst relating to localized arthrosis or a small area of vascular contrast dissecans. There is bone marrow edema is concomitant enhancement, extending proximally from the plantar aspect of the talar head extending into the neck. There is no fracture line. There is no overlying cartilage abnormality. Findings have the appearance of a bone contusion or stress reaction. Tarsometatarsal Joints: There is cartilage heterogeneity and subchondral cystic change involving the 2nd, 3rd and 4th tarsometatarsal joints indicative of mild arthrosis. Navicular Medial Cuneiform Joint: Minimal subchondral edema and possible subchondral cystic change likely reflects focal arthrosis. BURSA: Normal. MR/MR ankle RT wo/w con IMPRESSION: 1. Mild tendinosis and probable small split tear of the peroneal brevis tendon. 2. Old high-grade partial tear of the anterior talofibular ligament. 3. Mild arthrosis of the talocrural joint. 4. Bone marrow edema in the plantar aspect of the talar head extending into the neck compatible with a bone contusion or stress reaction. 5. Mild arthrosis of the midfoot.
[2023-02-23 08:43] LABS: MANUAL DIFF FLAG NO
[2023-02-23 09:26] LABS: Basophils Percent Auto 0.6 % (0-2); Eosinophils Absolute Auto 0.3 X10*3/uL (0.0-0.4); Eosinophils Percent Auto 3.8 % (0-4); Hematocrit 41.5 % (37.0-47.0); Hemoglobin 13.7 g/dl (12.0-16.0); Imm Gran Abs Auto 0.02 X10*3/uL (0.00-0.03); Imm Gran Pct Auto 0.3 % (0.0-0.4); Lymphocytes Absolute Auto 2.5 X10*3/uL (1.2-4.9); Lymphocytes Percent Auto 36.8 % (20-40); Mean Corpuscular Hemoglobin 31.8 pg (27.0-33.0); Mean Corpuscular Volume 96.3 fL (80.0-98.0); Mean Platelet Volume 10.1 fL (9.4-12.3); Monocytes Absolute Auto 0.6 X10*3/uL (0.1-1.2); Monocytes Percent Auto 9.5 % (2-11); Neutrophils Absolute Auto 3.3 x10*3/uL (2.0-8.3); Platelet Count 321 X10*3/uL (160-400); Red Blood Count 4.31 X10*6/uL (4.20-5.50); Red Cell Distribution Width 12.6 % (11.0-16.0); White Blood Count 6.7 X10*3/uL (4.8-10.8)
[2023-02-23 10:07] LABS: Creatinine Urine 17.17 mg/dL; Total Protein Urine Random < 7 mg/dL (<12)
[2023-02-27 22:38] LABS: Anti DNA DS Antibody 2 IU/mL; Antibody to SS-A Antigen <1.0 NEG AI (<1.0 NEG); Antibody to SS-B Antigen <1.0 NEG AI (<1.0 NEG); SM/Ribonucleoprotein Ab <1.0 NEG AI (<1.0 NEG); Smith Protein <1.0 NEG AI (<1.0 NEG)
[2023-02-27 22:48] LABS: Complement C3 115 mg/dL (83-193)
== END 2023-02-23 08:48 | disposition home or self-care (01) ==
LOC: HO.MRI 08:47
PROVIDERS: PCP Internal Medicine; Visit Provider Internal Medicine Rheumatology
DX: M77.51 Other enthesopathy of right foot and ankle (principal); R76.8 Other specified abnormal immunological findings in serum
CPT/HCPCS: 36415; 73723; 84156; 85025; 86160; 86225; 86235; A9585

== ENCOUNTER 2023-04-02 07:12 | Emergency (ER) | payer OTHER, SELFPAY ==
[2023-04-02 07:52] VITALS: BP 160/73; PULSE 80; RESP 14; O2SAT 100; BMI 28.8
--- NOTE | 2023-04-02 08:11 | ED.EXTPRO ---
HPI - Extremity Problem General Chief complaint: Extremity Injury, Lower Stated complaint: R foot pain Time Seen by Provider: 04/02/23 08:03 Source: patient Mode of arrival: ambulatory Limitations: no limitations History of Present Illness HPI Narrative: Patient has chronic right ankle pain head MRI showed partial ligament tear been followed by Ortho and [employer] comes here for hyperesthesia and pain in the left foot at greater toe area for last 2 weeks which she is at a different location and different type of pain patient was seen by PCP who gave her Indocin without much response patient cannot take prednisone got was suspected but cleared by the salesperson [employer] is not a gout Related Data Home Medications Medication Instructions Recorded Confirmed ascorbic acid (vitamin C) 1,000 mg 1 g PO DAILY 07/27/22 07/27/22 capsule cholecalciferol (vitamin D3) 25 25 mcg PO DAILY 07/27/22 07/27/22 mcg (1,000 unit) capsule celecoxib 200 mg capsule (Celebrex) 200 mg PO BID PRN 01/23/23 Previous Rx's Medication Instructions Recorded lidocaine 4 % topical patch 1 patch topical DAILY PRN pain #10 04/02/23 (Salonpas (lidocaine)) ea Allergies Allergy/AdvReac Type Severity Reaction Status Date / Time erythromycin base Allergy Hives Verified 01/23/23 14:37 Review of Systems Review of Systems: Yes all other systems are reviewed and are negative PMFSH Past Medical History Medical History Tendonitis of ankle, right Social History Social History Household Members: Spouse and Family Housing: House Alcohol intake: never Patient Tobacco Use Status: Current everyday Tobacco user Tobacco use type: Cigarette Cigarettes Per Day: 10 Years Smoked: 15 years Smoked in Last 30 Days: No e-Cigarette/Vaping Use: Never Used Use of substances other than those prescribed or required for medical reasons: No Advance Directives: No Advance Directives Information Provided: No Patient : No service: No Current occupational status: employed 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 Hyperesthesia at base of right greater toe no joint swelling skin color normal Medications Administered Discontinued Medications Generic Name Dose Route Start Last Admin Trade Name Freq PRN Reason Stop Dose Admin Lidocaine 1 patch 04/02/23 08:45 04/02/23 08:54 Lidocaine 4 % Patch Adh..Patch TRANSDERMA 04/02/23 08:46 1 patch ONCE ONE Administration Protocol Lidocaine HCl 2 ml 04/02/23 08:12 04/02/23 08:30 Lidocaine Hcl 1 % Mpf 2 Ml Vial INFILTRATI 04/02/23 08:13 2 ml ONCE ONE Administration Medical Decision Making Medical Decision Making [facility] Narrative: Patient has hyperesthesia and medial aspect of the foot medial plantar nerve was blocked using lidocaine 1% patient pain improved Discharge Plan Discharge Clinical Impression: Neuralgia and neuritis Patient Disposition: Home, Self-Care Instructions: Paresthesia (ED) Additional Instructions: Apply Lidoderm patch at the painful area of the right foot for 12 hours a day 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
[2023-04-02] MEDS: Lidocaine HCl 1 % MPF 2 ML VIAL INFILTRATI (08:30)
[2023-04-02] MEDS: Lidocaine 4 % Patch ADH..PATCH 1 PATCH TRANSDERMA (08:54)
== END 2023-04-02 09:02 | disposition home or self-care (01) ==
PROVIDERS: Emergency Provider Internal Medicine
DX: M79.2 Neuralgia and neuritis, unspecified (principal); F17.210 Nicotine dependence, cigarettes, uncomplicated; Z71.6 Tobacco abuse counseling; Z79.899 Other long term (current) drug therapy
CPT/HCPCS: 99283

== ENCOUNTER 2023-05-06 13:18 | Emergency (ER) | payer OTHER, SELFPAY ==
[2023-05-06 13:29] VITALS: BP 121/94; PULSE 80; RESP 19; TEMP 36.6; O2SAT 98; BMI 29.2
--- NOTE | 2023-05-06 13:29 | ED.GENADULT ---
HPI - General Adult General Chief complaint: General Medical Stated complaint: has diverticulitis , abd and back pain Time Seen by Provider: 05/06/23 16:21 Source: patient Mode of arrival: ambulatory Limitations: no limitations History of Present Illness HPI narrative: [age] year female history of diverticular disease, came in for evaluation of rectal pressure and lower abdominal pain. Patient was seen at [facility] and started on Augmentin for diverticulitis started on 04/20, patient started to feel improvement after the antibiotic then since yesterday patient been having more lower abdominal pain and rectal pressure that is getting worse, no fever, no chills, patient declined diarrhea, no rectal bleeding, no dysuria, no frequency urination, no nausea, no vomiting. Patient finished the whole course of Augmentin. No vaginal bleed or discharge. Surgical history is significant for incarcerated hernia repair. Related Data Home Medications Medication Instructions Recorded Confirmed ascorbic acid (vitamin C) 1,000 mg 1 g PO DAILY 07/27/22 07/27/22 capsule cholecalciferol (vitamin D3) 25 25 mcg PO DAILY 07/27/22 07/27/22 mcg (1,000 unit) capsule celecoxib 200 mg capsule (Celebrex) 200 mg PO BID PRN 01/23/23 Previous Rx's Medication Instructions Recorded lidocaine 4 % topical patch 1 patch topical DAILY PRN pain #10 04/02/23 (Salonpas (lidocaine)) ea amoxicillin 875 mg-potassium 1 tab PO BID #14 tabs 05/06/23 clavulanate 125 mg tablet Allergies Allergy/AdvReac Type Severity Reaction Status Date / Time erythromycin base Allergy Hives Verified 05/06/23 13:29 Review of Systems Review of Systems: All other systems are reviewed and are negative Constitutional: Reports as per HPI and Reports no additional constitutional complaints Eyes: Reports as per HPI and Reports no additional eye complaints Reports system reviewed and no additional complaints, except as documented Cardiovascular: Reports as per HPI and Reports no additional cardiovascular complaints Respiratory: Reports as per HPI and Reports no additional respiratory complaints Gastrointestinal: Reports as per HPI and Reports no additional gastrointestinal complaints Genitourinary: Reports no additional female genitourinary complaints Musculoskeletal: Reports no additional musculoskeletal complaints Skin/Breast: Reports system reviewed and no additional complaints, except as docu Psychiatric: Reports no additional psychiatric complaints Endocrine: Reports no additional endocrine complaints Hematologic/Lymphatic: Reports no additional hematologic/lymphatic complaints Allergic/Immunologic: Reports no additional allergic/immunologic complaints Reports system reviewed and no additional complaints, except as documented and Reports Abnormal speech present [facility] Past Medical History Medical History Tendonitis of ankle, right Social History Social History Household Members: Spouse and Family Housing: House Alcohol intake: current Alcohol intake frequency: a few times a month Patient Tobacco Use Status: Current everyday Tobacco user Tobacco use type: Cigarette Cigarettes Per Day: 10 Years Smoked: 15 years Smoked in Last 30 Days: Yes e-Cigarette/Vaping Use: Never Used Use of substances other than those prescribed or required for medical reasons: No Advance Directives: No Advance Directives Information Provided: No service: No Current occupational status: employed 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 Blood pressure normal. Heart rate normal. Respiration rate normal. Temperature normal. Oxygen saturation normal. Appearance: Alert. Oriented X3. No acute distress. Head: Normal external exam. Normocephalic. Atraumatic. No Ocampo signs noted. No raccoon eyes noted Eyes: PERRLA. EOMI. Conjunctiva and sclera normal. Eyelids normal. ENT: TM's Normal. Pharynx normal. Uvula midline. Moist mucous membranes. No trismus noted. No drooling noted. No muffled voice noted. Neck: Normal inspection. Neck supple. FROM. No adenopathy. Thyroid Normal. No meningeal signs. No neck mass noted. CVS: Normal heart rate and rhythm. Heart sound normal. No murmurs noted. Pulses normal throughout. Respiratory: No respiratory distress. Painless inspiration. Breath sounds normal. No wheezes/rales/rhonchi noted. Chest nontender. No accessory muscle usage noted or decreased air movement noted. Abdomen: Soft, mild tenderness to the lower abdomen, no guarding, no rebound tenderness. Bowel sounds normal in all 4 quadrants. No distention noted. No organomegaly noted. No visible injury noted. Rectal exam: No visible external hemorrhoid, no palpable internal hemorrhoid, no fluctuation, no point of tenderness the exam is overall uncomfortable. Back: No CVA tenderness. Full range of motion noted. Skin: Skin warm and dry. Normal skin color. Normal skin turgor. No rashes/lesions/lacerations noted. Extremities: No lower extremity edema. Extremities exhibit normal range of motion. Extremities nontender. Neuro: Oriented X 3. Cranial nerve exam: II-XII are grossly intact No motor deficit. No sensory deficit. Reflexes normal. Course Course Course Narrative: RME performed by Savana Lai PA-C. Patient is a 57 year old assigned female at presenting to the emergency department with low back and buttock pain. Patient recently in ED at [facility] for diverticulitis. Labs ordered. Patient placed back in the waiting room pending room availability and results. Reevaluation(s) Reevaluation #1: 57-year-old female history of diverticulitis just finish course of Augmentin came in with rectal pressure and lower abdominal pain CT of the abdomen pelvis show no acute intra-abdominal abscesses maybe a subtle remnant diverticulitis patient declining Cipro and Flagyl antibiotic worry about tendon rupture, will continue with another week of Augmentin patient was instructed to follow up with her PCP/GI. 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 Time: 19:17 Medications Administered Discontinued Medications Generic Name Dose Route Start Last Admin Trade Name Freq PRN Reason Stop Dose Admin Sodium Chloride 1,000 mls @ 999 mls/hr 05/06/23 16:40 05/06/23 18:13 Ns IV 05/06/23 17:40 Infused .Q1H1M ONE Infusion Iohexol 100 ml 05/06/23 18:01 05/06/23 18:01 Iohexol 350 Mg/Ml 100 Ml Infus..Btl IV 05/06/23 18:02 85 ml ONCE ONE Administration Medical Decision Making Differential Diagnosis Differential Diagnoses: The differential diagnosis associated with the presentation includes (Diverticular disease, intra-abdominal abscess, electrolyte abnormality, UTI, severe anemia.) Admission/Observation Consideration of admission/observation: Escalation of care including admission/observation considered Lab Data MDM Lab Attestation statement: I reviewed the patient's lab results. 05/06/23 13:39 05/06/23 13:39 Labs: Lab Results 05/06/23 05/06/23 05/06/23 Range/Units 13:36 13:39 13:39 WBC 6.2 (4.8-10.8) X10*3/uL RBC 4.72 (4.20-5.50) X10*6/uL Hgb 14.7 (12.0-16.0) g/dl Hct 44.0 (37.0-47.0) % MCV 93.2 (80.0-98.0) fL MCH 31.1 (27.0-33.0) pg MCHC 33.4 (31.0-35.0) g/dl RDW 13.1 (11.0-16.0) % Plt Count 470 H D (160-400) X10*3/uL MPV 8.8 L (9.4-12.3) fL Immature Gran % (Auto) 0.2 (0.0-0.4) % Neut % (Auto) 49.4 (45-73) % Lymph % (Auto) 36.5 (20-40) % [place] % (Auto) 7.6 (2-11) % Eos % (Auto) 5.8 H (0-4) % Baso % (Auto) 0.5 (0-2) % Lymph # (Auto) 2.3 (1.2-4.9) X10*3/uL [place] # (Auto) 0.5 (0.1-1.2) X10*3/uL Eos # (Auto) 0.4 (0.0-0.4) X10*3/uL Baso # (Auto) 0.0 (0.0-0.2) X10*3/uL Abs Immat Gran (auto) 0.01 (0.00-0.03) X10*3/uL Absolute Neuts (auto) 3.1 (2.0-8.3) x10*3/uL Absolute Nucleated RBC 0.000 (0.0-0.012) X10*3/uL Nucleated RBC % (auto) 0.0 (0.0-0.2) /100WBC Sodium 141 (135-145) mmol/L Potassium 4.5 (3.3-5.1) mmol/L Chloride 104 (96-108) mmol/L Carbon Dioxide 25 (22-29) mmol/L Anion Gap 17 (12-20) BUN 4 L (9-16) mg/dL Creatinine 0.79 (0.5-1.4) mg/dL Estim Creat Clear Calc 80.8 Estimated GFR > 60 Random Glucose 103 (60-115) mg/dL Calcium 10.1 (8.4-10.2) mg/dL Magnesium 2.1 (1.6-2.6) mg/dL Total Bilirubin 0.5 (0.0-1.0) mg/dL AST 24 (5-31) U/L ALT 23 (0-31) U/L Alkaline Phosphatase 114 (39-117) U/L Total Protein 7.9 (6.5-8.0) g/dL Albumin 4.3 (3.5-5.0) g/dL Urine Color Yellow Urine Appearance Clear Urine pH 6.5 (5.0-9.0) Ur Specific [place] 1.010 (1.005-1.025) Urine Protein Negative (Neg-Trace) mg/dL Urine Glucose (UA) Negative (Negative) mg/dL Urine Ketones Negative (Negative) mg/dL Urine Blood Negative (Negative) Urine Nitrite Negative (Negative) Ur Leukocyte Esterase Trace H (Negative) Urine RBC 0-2 (0-2) /HPF Urine WBC 0-5 (0-5) /HPF Ur Squamous Epith Cells 0-2 (0-2) /HPF Urine Bacteria None Seen (None Seen) Hyaline Casts 0-2 (0-2) /LPF Stool Occult Blood (NEGATIVE) 05/06/23 Range/Units 16:33 WBC (4.8-10.8) X10*3/uL RBC (4.20-5.50) X10*6/uL Hgb (12.0-16.0) g/dl Hct (37.0-47.0) % MCV (80.0-98.0) fL MCH (27.0-33.0) pg MCHC (31.0-35.0) g/dl RDW (11.0-16.0) % Plt Count (160-400) X10*3/uL MPV (9.4-12.3) fL Immature Gran % (Auto) (0.0-0.4) % Neut % (Auto) (45-73) % Lymph % (Auto) (20-40) % [place] % (Auto) (2-11) % Eos % (Auto) (0-4) % Baso % (Auto) (0-2) % Lymph # (Auto) (1.2-4.9) X10*3/uL [place] # (Auto) (0.1-1.2) X10*3/uL Eos # (Auto) (0.0-0.4) X10*3/uL Baso # (Auto) (0.0-0.2) X10*3/uL Abs Immat Gran (auto) (0.00-0.03) X10*3/uL Absolute Neuts (auto) (2.0-8.3) x10*3/uL Absolute Nucleated RBC (0.0-0.012) X10*3/uL Nucleated RBC % (auto) (0.0-0.2) /100WBC Sodium (135-145) mmol/L Potassium (3.3-5.1) mmol/L Chloride (96-108) mmol/L Carbon Dioxide (22-29) mmol/L Anion Gap (12-20) BUN (9-16) mg/dL Creatinine (0.5-1.4) mg/dL Estim Creat Clear Calc Estimated GFR Random Glucose (60-115) mg/dL Calcium (8.4-10.2) mg/dL Magnesium (1.6-2.6) mg/dL Total Bilirubin (0.0-1.0) mg/dL AST (5-31) U/L ALT (0-31) U/L Alkaline Phosphatase (39-117) U/L Total Protein (6.5-8.0) g/dL Albumin (3.5-5.0) g/dL Urine Color Urine Appearance Urine pH (5.0-9.0) Ur Specific [place] (1.005-1.025) Urine Protein (Neg-Trace) mg/dL Urine Glucose (UA) (Negative) mg/dL Urine Ketones (Negative) mg/dL Urine Blood (Negative) Urine Nitrite (Negative) Ur Leukocyte Esterase (Negative) Urine RBC (0-2) /HPF Urine WBC (0-5) /HPF Ur Squamous Epith Cells (0-2) /HPF Urine Bacteria (None Seen) Hyaline Casts (0-2) /LPF Stool Occult Blood NEGATIVE (NEGATIVE) Independent Interpretation I performed an independent interpretation of an: CT Scan (Abdomen pelvis: Mild diverticulitis) Radiology Impression Discussion of test interpretation with radiology: I have reviewed the radiologist's reading. Discharge Plan Discharge Clinical Impression: Diverticulitis Patient Disposition: Home, Self-Care Instructions: Diverticulitis (ED) Prescriptions: New amoxicillin-pot clavulanate 875-125 mg tablet 1 tab PO BID Qty: 14 0RF No Action lidocaine [Salonpas (lidocaine)] 4 % adhesive patch,medicated 1 patch topical DAILY PRN (Reason: pain) Qty: 10 0RF Rx Instructions: may leave on for up to 12 hrs cholecalciferol (vitamin D3) 25 mcg (1,000 unit) capsule 25 mcg PO DAILY ascorbic acid (vitamin C) 1,000 mg capsule 1 g PO DAILY celecoxib [Celebrex] 200 mg capsule 200 mg PO BID PRN
[2023-05-06 15:20] VITALS: BP 116/75; PULSE 68; RESP 18; TEMP 36.9; O2SAT 97
[2023-05-06 15:23] VITALS: BP 116/75; PULSE 83; RESP 18; O2SAT 99
--- NOTE | 2023-05-06 15:26 | PC.NURSE ---
Patient arrived from home stating that 15 days ago she was diagnosed with diverticulitis. Shortly after she says she started having butt and lower back and rectum pain. States over the last few days the pain has gotten worse. Rates the pain at 7/10 and say it now at times the pain shoots towards her vagina. States was diagnosed with a yeast infection at the gynecologists office yesterday. Denies pain with urination but states has been peeing more lately. States thyroid issues along with rheumatoid arthritis.
[2023-05-06 16:36] VITALS: BP 125/77; PULSE 93; RESP 18; O2SAT 98
[2023-05-06] MEDS: 0.9 % Sodium Chloride 1,000 ML 999 ML IV (16:47)
--- NOTE | 2023-05-06 18:13 | PC.NURSE ---
Back from CT states feeling better after iv fluids
[2023-05-06 18:14] VITALS: BP 105/64; RESP 18; O2SAT 96
== END 2023-05-06 19:27 | disposition home or self-care (01) ==
PROVIDERS: Emergency Provider Emergency Medicine
DX: K57.32 Diverticulitis of large intestine without perforation or abscess without bleeding (principal); K62.89 Other specified diseases of anus and rectum; R10.30 Lower abdominal pain, unspecified; F17.210 Nicotine dependence, cigarettes, uncomplicated; Z90.49 Acquired absence of other specified parts of digestive tract
CPT/HCPCS: 36415; 74177; 80053; 81001; 82272; 83735; 85025; 96360; 99284; Q9967

== ENCOUNTER 2024-06-10 07:54 | Outpatient (REF) | payer OTHER, SELFPAY ==
[2024-06-10 09:30] LABS: MANUAL DIFF FLAG NO
[2024-06-10 10:05] LABS: Basophils Percent Auto 0.3 % (0-2); Eosinophils Absolute Auto 0.2 X10*3/uL (0.0-0.4); Eosinophils Percent Auto 2.7 % (0-4); Hematocrit 41.4 % (37.0-47.0); Hemoglobin 14.1 g/dl (12.0-16.0); Imm Gran Abs Auto 0.01 X10*3/uL (0.00-0.03); Imm Gran Pct Auto 0.1 % (0.0-0.4); Lymphocytes Absolute Auto 1.7 X10*3/uL (1.2-4.9); Lymphocytes Percent Auto 24.9 % (20-40); Mean Corpuscular HGB Conc 34.1 g/dl (31.0-35.0); Mean Corpuscular Hemoglobin 31.4 pg (27.0-33.0); Mean Corpuscular Volume 92.2 fL (80.0-98.0); Mean Platelet Volume 9.2 fL (9.4-12.3); Monocytes Absolute Auto 0.7 X10*3/uL (0.1-1.2); Monocytes Percent Auto 11.1 % (2-11); Neutrophils Absolute Auto 4.1 x10*3/uL (2.0-8.3); Neutrophils Percent Auto 60.9 % (45-73); Platelet Count 332 X10*3/uL (160-400); Red Blood Count 4.49 X10*6/uL (4.20-5.50); Red Cell Distribution Width 12.8 % (11.0-16.0); White Blood Count 6.7 X10*3/uL (4.8-10.8)
[2024-06-10 10:39] LABS: Alanine Aminotransferase 23 U/L (0-31); Albumin Level 4.2 g/dL (3.5-5.0); Alkaline Phosphatase 102 U/L (39-117); Anion Gap 9 (12-20); Aspartate Amino Transferase 23 U/L (5-31); Bilirubin Total 0.4 mg/dL (0.0-1.0); Blood Urea Nitrogen 8 mg/dL (9-16); C Reactive Protein 0.24 mg/dL (< or = 0.50); Calcium 9.3 mg/dL (8.4-10.2); Carbon Dioxide 31 mmol/L (22-29); Chloride 105 mmol/L (96-108); Estimated Glomerular Filt Rate > 60; Glucose Random 67 mg/dL (60-115); Potassium 4.1 mmol/L (3.3-5.1); Sodium 141 mmol/L (135-145); Total Protein 7.3 g/dL (6.5-8.0)
[2024-06-10 11:03] LABS: HBc Num1 0.08 S/CO (0.00-0.79); HBsAGNum1 0.23 S/CO (0.00-0.99); Hepatitis A Antibody IgM 0.26 Index (0-0.79); Hepatitis B Core Antibody Nonreactive (Nonreactive); Hepatitis B Surface Antigen Negative (Negative); ~HepC Num1 0.23 S/CO (0.00-0.79); ~Hepatitis A Antibody IgM Nonreactive (Nonreactive); ~Hepatitis B Surface Antibody REACTIVE (Nonreactive); ~Hepatitis C Antibody Nonreactive (Nonreactive)
[2024-06-10 12:35] LABS: Erythrocyte Sedimentation Rate 15 MM/HR (0-20)
[2024-06-11 11:19] LABS: Prot Elec - Albumin 4.2 g/dL (3.8-4.8); Prot Elec - Alpha1 0.3 g/dL (0.2-0.3); Prot Elec - Alpha2 0.6 g/dL (0.5-0.9); Prot Elec - Beta 1 0.4 g/dL (0.4-0.6); Prot Elec - Beta 2 0.3 g/dL (0.2-0.5); Prot Elec - Total Protein 6.8 g/dL (6.1-8.1)
[2024-06-11 20:48] LABS: Myeloperoxidase Antibody <1.0 AI; Proteinase 3 PR3 Antibodies <1.0 AI
[2024-06-12 15:39] LABS: IgA 157 mg/dL (47-310); IgG 1169 mg/dL (600-1640); IgM 148 mg/dL (50-300)
[2024-06-16 22:09] LABS: Angiotensin Converting Enzyme 57 U/L (9-67)
== END 2024-06-10 07:55 | disposition home or self-care (01) ==
LOC: HO.LAB 07:54
PROVIDERS: PCP Family Medicine; Visit Provider Student in an Organized Health Care Education/Training Program
DX: Z11.59 Encounter for screening for other viral diseases (principal); I77.6 Arteritis, unspecified; M05.9 Rheumatoid arthritis with rheumatoid factor, unspecified; D86.9 Sarcoidosis, unspecified; R07.81 Pleurodynia; M05.79 Rheumatoid arthritis with rheumatoid factor of multiple sites without organ or systems involvement; Z22.7 Latent tuberculosis; Z72.89 Other problems related to lifestyle
CPT/HCPCS: 36415; 80053; 82164; 82550; 82784; 84165; 85025; 85652; 86021; 86140; 86334; 86704; 86706; 86709; 86803; 87340

== ENCOUNTER 2024-06-10 07:54 | Outpatient (AMB) | payer OTHER, SELFPAY ==
--- NOTE | 2024-06-10 07:57 | A.OFFVIS_ITS ---
Vital Signs 06/10/24 07:58 Height 5 ft 4 in Weight 165 lb 5.547 oz BMI 28.4 BP 112/62 Blood Pressure Location Rt brachial Position Sitting Respiration 16 Pulse 74 Pulse Source Pulse Oximeter Intake Visit Reasons: RA/cm Intake Note: Patient presents for RA. Allergies erythromycin base Allergy (Verified 06/10/24 08:00) Hives etanercept [From Enbrel] Adverse Reaction (Intermediate, Verified 06/10/24 08:26) diverticulitis leflunomide Adverse Reaction (Intermediate, Verified 06/10/24 08:26) diverticulitis prednisone Adverse Reaction (Intermediate, Verified 06/10/24 08:45) Body pain Medication List - Last Reconciled 06/10/24 by Antonia Clark MD ascorbic acid (vitamin C) 1 g PO DAILY cholecalciferol (vitamin D3) 25 mcg PO DAILY rifampin 600 mg PO DAILY HPI Comments Details: This is a 58-year-old female with seropositive RA who presents for follow-up. She is here for another opinion. After patient saw Dr. Olvera, she was evaluated by a cocktail waitress in [place], she was started on leflunomide around. She took it for 2 weeks and she developed diverticulitis, she took oral antibiotics. Afterwards she was switched to Enbrel, per patient she took it for about 1 month and it was stopped due to another bout of diverticulitis, treated with oral antibiotics. She states that she received Remicade infusion sometime in 04/2024, she only received 1 dose, stay she developed tingling and numbness of both her legs, the left side of her face. She also developed bilateral thoracic rib pain posteriorly, more severe on the right. Pain is not worse with deep breaths. Not associated with shortness of breath. She found out that she had a positive QuantiFERON test. Remicade was discontinued and patient recently evaluated by Infectious Disease and started on rifampin. She has been taking rifampin for approximately 2 weeks now. She also developed an eye problem. 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 She was evaluated by a neurologist for her numbness and had an EMG/NCV and was told that she has lumbar radiculopathy She mentions that she had sacroiliac joint pain earlier this year and had an injection 12/2023. She continues to have diffuse pain everywhere. Intermittent swelling of different joints including her wrists, hands, fingers, ankles Initial history by Dr. Olvera 07/2022: The patient presents for evaluation of joint pains. She had been followed at [facility] with Mr. Morales. When last seen she was having bilateral wrist pain with some right hand numbness. There was a known positive rheumatoid factor and CCP antibody. She never had any elevations of the CRP and ESR. Looking through the chart at [facility] the following visits were noted: In the early she had repair of a ACL injury in the left knee. In 2015 she had some pain in the left foot where there was a soft tissue lump consistent with a ganglion. This was eventually aspirated in Podiatry but only some minimally bloody fluid was obtained. It still occasionally bothers her. In 2017 she was seen with some right wrist pain and tenderness at the thumb. In 2017 she also had development of bilateral wrist pain and hand paresthesias. An EMG done in January of 2019 showed bilateral carpal tunnel syndrome. She had a few carpal tunnel injections that seemed to help her. Eventually she had a right carpal tunnel release done in January of 2020. In March of 2020 she was still having right wrist pain and had MRI done. The showed a ganglion cyst and postoperative changes but no erosions. In May of 2020 she slipped and fell on a boat. She caught herself with her left hand. After that there was more wrist pain. Subsequent MRI did show signs of scapholunate injury, some sprain, and some fluid in the extensor carpi ulnaris tendon sheath. In 2020 she was seen at [facility] with Dr. Condon. Eventually they decided on attempts with treatment with DMARD therapy with methotrexate. This caused GI upset and eventually she was switched to Humira. She has been on Humira since April of 2021. Initial note suggested some improvement in her wrist pain but she does not think it has persisted. She continues to get left greater than right wrist pain. She is seeing the hand surgeon in the next few weeks to see a surgical procedure might be helpful. She wonders if she actually has RA. 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 Review of Systems Const Reports fatigue and Reports weakness Card Reports no additional complaints, Denies dyspnea and Denies dyspnea on exertion Resp Denies dyspnea and Denies dyspnea on exertion Musc Reports back pain, Reports arthralgias, Reports joint swelling, Reports numbness, Reports stiffness and Reports tingling Neuro Reports numbness, Reports tingling and Reports weakness Endo Reports fatigue Physical Exam Vital Signs: Last Vital Signs Pulse 74 06/10/24 07:58 Resp 16 06/10/24 07:58 BP 112/62 06/10/24 07:58 BMI result Body Mass Index 28.4 Const General: cooperative and healthy appearing Nutritional Appearance: overweight Orientation/consciousness: patient oriented x3 Limitations: no limitations HEENT Head: Yes normocephalic and Yes atraumatic Mouth: moist mucous membranes Resp Effort & Inspection: normal respiratory effort and able to speak in complete sentences Auscultation: clear to auscultation bilaterally Cardio Rate: regular rate Rhythm: regular rhythm GI Inspection: No distended Palpation (GI): Soft to palpation and nontender Skin General skin exam: no rashes or lesions noted Neuro General: patient oriented x3 Extrem Other: Left wrist pain with flexion-extension Mild swelling of left ankle No active synovitis otherwise Normal range of motion of elbows and shoulders without pain Tenderness to palpation along the mid thoracic ribs posteriorly, more severe on the right No rashes noted Normal nailfold capillaroscopy Assessment & Plan Assessment & Plan (1) Rheumatoid arthritis with positive rheumatoid factor: Comment: Dx 10/2020: RF 113. CCP>250 Methotrexate 10/25 -05/2021 -stopped due to LFT elevations 05/2021 - Humira started - ?improvement 08/2022 _ Humira stopped for wrist surgery leflunomide 04/2023-05/2024 DC due to diverticulitis Enbrel 05/2023 DC 06/2023 due to diverticulitis Remicade 04/2024 DC after 1 dose as patient had a positive QuantiFERON test Code(s): M05.9 - Rheumatoid arthritis with rheumatoid factor, unspecified Category: Medical Qualifiers: Rheumatoid arthritis location: multiple sites Qualified Code(s): M05.79 - Rheumatoid arthritis with rheumatoid factor of multiple sites without organ or systems involvement Plan: This is a 58-year-old female with seropositive RA who presents for follow-up. Patient is not on any DMARDs currently, her most recent DMARD was Remicade, she received 1 dose and she was found to have a positive QuantiFERON test, treatment was discontinued and started on rifampin 2-3 weeks ago. Since after the Remicade infusion she has had multiple areas of numbness. An EMG of the lower extremities per patient showed lumbar radiculopathy. She is also having rib pain bilaterally posteriorly, I will evaluate for pericarditis, will check a 2D echo and high-resolution CT chest She also developed an eye problem per patient her engineering drawings checker told her it may be related to her TB. Ask patient to send me records from engineering drawings checker and cocktail waitress With regards to DMARDs we can consider hydroxychloroquine and Orencia. Labs before next visit in 6 weeks (2) Rib pain: Code(s): R07.81 - Pleurodynia Category: Medical Plan: Check a 2D echo and high-resolution CT chest as mentioned above (3) Latent tuberculosis by blood test: Comment: +ve QuantiFERON 2023. rifampin 05/2024 Code(s): Z22.7 - Latent tuberculosis Category: Medical Plan I spent 49 minutes reviewing patient's chart, evaluating patient, ordering diagnostic workup, counseling patient and documenting in the chart Orders: Orders Complete Blood Count Auto Diff Today M05.9 - Rheumatoid arthritis with rheumatoid factor, unspecified Comprehensive Met. Panel Today M05.9 - Rheumatoid arthritis with rheumatoid factor, unspecified C Reactive Protein Today M05.9 - Rheumatoid arthritis with rheumatoid factor, unspecified Protein Electrophoresis, Serum Today M05.9 - Rheumatoid arthritis with rheumatoid factor, unspecified ANCA Vasculitides Today I77.6 - Arteritis, unspecified CA echo transthoracic complete Today R07.9 - Chest pain, unspecified Erythrocyte Sedimentation Rate Today M05.9 - Rheumatoid arthritis with rheumatoid factor, unspecified Hepatitis A,B,C Profile Today Z11.59 - Encounter for screening for other viral diseases Immunofixation Pnl, Serum Today M05.9 - Rheumatoid arthritis with rheumatoid factor, unspecified Creatine Kinase Total Today M05.9 - Rheumatoid arthritis with rheumatoid factor, unspecified Angiotensin Converting Enzyme Today D86.9 - Sarcoidosis, unspecified CT chest wo con - High Res Today I31.9 - Disease of pericardium, unspecified Coding Level of Care Code Est Pt Level 5 (61100) Diagnoses Rheumatoid arthritis involving multiple sites with positive rheumatoid factor M05.79 Rheumatoid arthritis location: multiple sites Rib pain R07.81 Latent tuberculosis by blood test Z22.7
[2024-06-10 07:58] VITALS: BP 112/62; PULSE 74; RESP 16; BMI 28.4
== END 2024-06-10 08:39 | disposition home or self-care (01) ==
PROVIDERS: Visit Provider Student in an Organized Health Care Education/Training Program
DX: M05.79 Rheumatoid arthritis with rheumatoid factor of multiple sites without organ or systems involvement (principal); R07.81 Pleurodynia; Z22.7 Latent tuberculosis
CPT/HCPCS: 99215

== ENCOUNTER → 2024-07-15 14:46 | Outpatient (REF) | payer OTHER, SELFPAY ==
--- NOTE | 2024-07-15 14:48 | CA_ITS ---
Transthoracic Echocardiogram Patient (Last, First, Middle): María Phillips, Gender: Female Date of : 1965 Age: 59 Procedure Date: 07/15/2024 Procedure Type: Transthoracic Echocardiogram Location: OP Height: 162.56 cm Weight: 74.84 kg BSA: 1.80 m2 Heart Rate: 73 bpm BP: 114 / 60 mmHg Marketing Content Specialist: SB Referring MD: Antonia Clark MD Symptoms: R07.9 - Chest pain, unspecified Study Quality: Adequate ECG Rhythm: Sinus Conclusions: - The left ventricular systolic function is normal. The calculated ejection fraction is 63% by biplane method. - No obvious valvular pathology seen on this study. Findings Left Ventricle Normal left ventricular cavity size. There is normal left ventricular wall thickness. The left ventricular systolic function is normal. The calculated ejection fraction is 63% by biplane method. There is no evidence of regional wall motion abnormalities. Diastolic function is normal for age. Right Ventricle Normal right ventricular cavity size and systolic function. Atria Both atria are normal in size. Aortic Valve There is a normal trileaflet aortic valve. There is no aortic valve stenosis. There is no aortic valve regurgitation. Mitral Valve The mitral valve appears normal. There is no mitral valve regurgitation. There is no mitral valve stenosis. Pulmonic Valve The pulmonic valve is likely normal. Tricuspid Valve There is trace tricuspid valve regurgitation. There is no evidence of pulmonary hypertension. Great Vessels The asc aorta and aortic arch are normal in size. Venous The inferior vena cava was not well visualized. The inferior vena cava is normal in size. Pericardium/Pleural There is no evidence of pericardial effusion. Prior Study Comparison No prior study available for comparison. Recommendations, Care & Conclusions No obvious valvular pathology seen on this study. Measurements 2D Linear Measurements IVSd: 0.79 0.6-0.9/0.6-1.0 cm LVIDd: 4.21 3.9-5.3/4.2-5.9 cm LVIDd Index: 2.34 2.4-3.2/2.2-3.1 cm/m2 LVIDs: 3.21 2.0-3.6 cm LVPWd: 0.64 0.7-1.1 cm LA Diam: 3.00 2.7-3.8/3.0-4.0 cm LAIDs Index: 1.67 1.5-2.3 cm/m2 LV Mass: 109.28 67-162/88-224 g LV Mass Index: 60.71 43-95/49-115 g/m2 LVOT Diam: 2.10 3.0+(-)1.3 cm 2D Systolic Function EF 4C: 59.30 >55% EF 2C: 66.30 >55% EF BiP: 62.60 >55% Mitral Valve MV Pk E: 0.64 MV PK A: 0.78 MV Decel Time: 275.00 E/A: 0.80 E'Lateral: 10.70 E'Medial: 8.59 E/E' Med: 7.50 E/E' Lat: 6.00 PHT: 81.00 MVA PHT: 2.72 Decel [place]: 2.34 Aortic Valve AoV Pk Yehuda: 0.94 AoV Pk Grad: 4.00 MARK: 3.70 LVOT LVOT Pk Yehuda: 0.92 LVOT Mn Yehuda: 0.63 LVOT VTI: 0.19 LVOT Pk Grad: 3.00 LVOT Mn Grad: 2.00 LVOT Diam: 2.10 LVOT Area: 3.46 Diastolic Function MV Pk E: 0.64 MV Pk A: 0.78 E/A: 0.80 E'Medial: 8.59 E/E' Med: 7.50 E' Laterial: 10.70 E/E' Lat: 6.00 Right Ventricle TAPSE (mm): 18.70 TVS' Yehuda: 12.30 Tricuspid Valve RA Press: 3.00 Great Vessels Aorta Sinus of Valsalva: 3.00 2.0-3.5 cm Ao Asc: 3.30 2.1-3.4 cm Ao Arch: 3.10 Pulmonary Veins Pulm Vein S/D 1.40 Pulmonary Valve PV Pk Yehuda: 0.98 Peak PV Grad: 4.00 Updated in Other Vendor System with Status of Final Roderick Callaway MD electronically signed on 07/16/2024 8:05:28 AM with status of Final
== END ==
LOC: HO.CARD 14:46
PROVIDERS: PCP Family Medicine; Visit Provider Student in an Organized Health Care Education/Training Program
DX: R07.9 Chest pain, unspecified (principal)
CPT/HCPCS: 93306

== ENCOUNTER → 2024-07-15 14:48 | Outpatient (BNV) | payer OTHER, SELFPAY | PROVIDERS: PCP Family Medicine; Visit Provider Internal Medicine | DX: R07.9 Chest pain, unspecified (principal) | CPT/HCPCS: 93306 ==

== ENCOUNTER 2024-08-21 08:38 | Outpatient (AMB) | payer OTHER, SELFPAY ==
--- NOTE | 2024-08-21 08:43 | A.OFFVIS_ITS ---
Vital Signs 08/21/24 08:48 Height 5 ft 4 in Weight 166 lb 7.184 oz BMI 28.6 BP 124/80 Blood Pressure Location Rt brachial Position Sitting Pulse 72 Pulse Source Pulse Oximeter Pulse Oximetry (%) 98 Oxygen Delivery Method Room Air Intake Visit Reasons: RA/ Patient in alot of pain Intake Note: Patient presents for RA. Allergies erythromycin base Allergy (Verified 08/21/24 08:47) Hives etanercept [From Enbrel] Adverse Reaction (Intermediate, Verified 08/21/24 08:47) diverticulitis leflunomide Adverse Reaction (Intermediate, Verified 08/21/24 08:47) diverticulitis prednisone Adverse Reaction (Intermediate, Verified 08/21/24 08:47) Body pain Medication List - Last Reconciled 08/21/24 by Antonia Clark MD ascorbic acid (vitamin C) 1 g PO DAILY cholecalciferol (vitamin D3) 25 mcg PO DAILY rifampin 600 mg PO DAILY HPI Comments Details: This is a 59-year-old female with seropositive RA who presents for follow-up. She stated that she continues to have pain in her right mid back as well as similar pain in her left upper quadrant going all the way to her back. As well as left shoulder numbness. She has been in this pain for more than 8 months without any good expect ligation despite being multiple specialists and multiple imaging studies. She had and right SI joint injection last Monday by Pain Management. She states that it did not help much. She denies any swollen joints currently. Initial history by Dr. Olvera 07/2022: The patient presents for evaluation of joint pains. She had been followed at [facility] with Mr. Morales. When last seen she was having bilateral wrist pain with some right hand numbness. There was a known positive rheumatoid factor and CCP antibody. She never had any elevations of the CRP and ESR. Looking through the chart at [facility] the following visits were noted: In the early 1999s she had repair of a ACL injury in the left knee. In 2015 she had some pain in the left foot where there was a soft tissue lump consistent with a ganglion. This was eventually aspirated in Podiatry but only some minimally bloody fluid was obtained. It still occasionally bothers her. In 2017 she was seen with some right wrist pain and tenderness at the thumb. In 2017 she also had development of bilateral wrist pain and hand paresthesias. An EMG done in January of 2019 showed bilateral carpal tunnel syndrome. She had a few carpal tunnel injections that seemed to help her. Eventually she had a right carpal tunnel release done in January of 2020. In March of 2020 she was still having right wrist pain and had MRI done. The showed a ganglion cyst and postoperative changes but no erosions. In May of 2020 she slipped and fell on a boat. She caught herself with her left hand. After that there was more wrist pain. Subsequent MRI did show signs of scapholunate injury, some sprain, and some fluid in the extensor carpi ulnaris tendon sheath. In 2020 she was seen at [facility] with Dr. Condon. Eventually they decided on attempts with treatment with DMARD therapy with methotrexate. This caused GI upset and eventually she was switched to Humira. She has been on Humira since April of 2021. Initial note suggested some improvement in her wrist pain but she does not think it has persisted. She continues to get left greater than right wrist pain. She is seeing the hand s urgeon in the next few weeks to see a surgical procedure might be helpful. She wonders if she actually has RA. [facility] Medical History Latent tuberculosis by blood test Sacroiliac joint pain Tendonitis of ankle, right Social History Household Members: Spouse and Family Housing: House Alcohol intake: current Alcohol intake frequency: a few times a month Patient Tobacco Use Status: Current everyday Tobacco user Tobacco use type: Cigarette Cigarettes Per Day: 10 Years Smoked: 15 years e-Cigarette/Vaping Use: Never Used service: No Current occupational status: employed 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 [facility] [employer] Reports back pain and Reports numbness Neuro Reports numbness Physical Exam Vital Signs: Last Vital Signs Pulse 72 08/21/24 08:48 BP 124/80 08/21/24 08:48 Pulse Ox 98 08/21/24 08:48 Oxygen Delivery Method Room Air 08/21/24 08:48 BMI result Body Mass Index 28.6 Const General: cooperative and healthy appearing Nutritional Appearance: overweight Limitations: no limitations HEENT Head: Yes normocephalic and Yes atraumatic Mouth: moist mucous membranes Resp Effort & Inspection: normal respiratory effort and able to speak in complete sentences Extrem Other: No active synovitis on exam Normal bilateral hand combat information center officer strength Tenderness to palpation along the mid thoracic ribs posteriorly, more severe on the right No rashes noted Normal nailfold capillaroscopy Assessment & Plan Assessment & Plan (1) Rheumatoid arthritis with positive rheumatoid factor: Comment: Dx 10/2020: RF 113. CCP>250 Methotrexate 10/25 -05/2021 -stopped due to LFT elevations 05/2021 - Humira started - ?improvement 08/2022 _ Humira stopped for wrist surgery leflunomide 04/2023-05/2024 DC due to diverticulitis Enbrel 05/2023 DC 06/2023 due to diverticulitis Remicade 04/2024 DC after 1 dose as patient had a positive QuantiFERON test Code(s): M05.9 - Rheumatoid arthritis with rheumatoid factor, unspecified Category: Medical Qualifiers: Rheumatoid arthritis location: multiple sites Qualified Code(s): M05.79 - Rheumatoid arthritis with rheumatoid factor of multiple sites without organ or systems involvement Plan: This is a 59-year-old female with seropositive RA who presents for follow-up. Patient is not on any DMARDs currently, her most recent DMARD was Remicade, she received 1 dose and she was found to have a positive QuantiFERON test, treatment was discontinued and started on rifampin. On exam today I do not see any active synovitis. In the past, the diagnosis of RA was not question. I think at this time patient does not require a DMARD Follow-up as needed (2) Rib pain: Code(s): R07.81 - Pleurodynia Category: Medical Plan: 2D echo was unremarkable. As well as other wrists imaging studies. Recent SI joint injection was not helpful. At this time, no specific etiology was found for patient's back and rib pain. She also has diffuse abdominal tenderness. Patient has history of hernia s/p hernia procedure and mesh placement. Advised patient to consult with her surgeon and scooper (3) Latent tuberculosis by blood test: Comment: +ve QuantiFERON 2023. 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
[2024-08-21 08:48] VITALS: BP 124/80; PULSE 72; O2SAT 98; BMI 28.6
== END 2024-08-21 09:35 | disposition home or self-care (01) ==
PROVIDERS: PCP Family Medicine; Visit Provider Student in an Organized Health Care Education/Training Program
DX: M05.79 Rheumatoid arthritis with rheumatoid factor of multiple sites without organ or systems involvement (principal); R07.81 Pleurodynia; Z22.7 Latent tuberculosis; M79.7 Fibromyalgia
CPT/HCPCS: 99214

== ENCOUNTER → 2024-08-21 08:38 | Outpatient (BNVA) | payer OTHER, SELFPAY | PROVIDERS: PCP Family Medicine; Visit Provider Student in an Organized Health Care Education/Training Program ==

== ENCOUNTER 2024-11-12 14:44 | Outpatient (AMB) | payer OTHER, SELFPAY ==
--- NOTE | 2024-11-12 14:52 | A.OFFVIS_ITS ---
Vital Signs 11/12/24 14:58 Height 5 ft 4 in Weight 162 lb 0.636 oz BMI 27.8 BP 116/70 Blood Pressure Location Rt brachial Position Sitting Pulse 66 Pulse Source Pulse Oximeter Pulse Oximetry (%) 99 Oxygen Delivery Method Simple Mask Intake Visit Reasons: RA Intake Note: Patient presents for RA. Having lots of pain on both arms and both wrist and a lot of shaking. Allergies erythromycin base Allergy (Verified 11/12/24 14:58) Hives etanercept [From Enbrel] Adverse Reaction (Intermediate, Verified 11/12/24 14:58) diverticulitis leflunomide Adverse Reaction (Intermediate, Verified 11/12/24 14:58) diverticulitis prednisone Adverse Reaction (Intermediate, Verified 11/12/24 14:58) Body pain Medication List - Last Reconciled 11/12/24 by Antonia Clark MD ascorbic acid (vitamin C) 1 g PO DAILY cholecalciferol (vitamin D3) 25 mcg PO DAILY gabapentin 100 mg PO TID HPI Comments Details: Patient returns for follow-up. 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 She states that she will be going for surgery, body tendon not been scheduled yet. She states that recently she has been having pain in her arms associated with shaking when she raises her arms above her head. She states that she was started on an antidepressant, she took it for one-month and stopped for fear of possible serotonin syndrome. She has also been having tingling and numbness of her arms going down her hands and an EMG/NCV was ordered Initial history by Dr. Olvera 07/2022: The patient presents for evaluation of joint pains. She had been followed at [facility] with Mr. Morales. When last seen she was having bilateral wrist pain with some right hand numbness. There was a known positive rheumatoid factor and CCP antibody. She never had any elevations of the CRP and ESR. Looking through the chart at [facility] the following visits were noted: In the early 1999s she had repair of a ACL injury in the left knee. In 2015 she had some pain in the left foot where there was a soft tissue lump consistent with a ganglion. This was eventually aspirated in Podiatry but only some minimally bloody fluid was obtained. It still occasionally bothers her. In 2017 she was seen with some right wrist pain and tenderness at the thumb. In 2017 she also had development of bilateral wrist pain and hand paresthesias. An EMG done in January of 2019 showed bilateral carpal tunnel syndrome. She had a few carpal tunnel injections that seemed to help her. Eventually she had a right carpal tunnel release done in January of 2020. In March of 2020 she was still having right wrist pain and had MRI done. The showed a ganglion cyst and postoperative changes but no erosions. In May of 2020 she slipped and fell on a boat. She caught herself with her left hand. After that there was more wrist pain. Subsequent MRI did show signs of scapholunate injury, some sprain, and some fluid in the extensor carpi ulnaris tendon sheath. In 2020 she was seen at [facility] with Dr. Condon. Eventually they decided on attempts with treatment with DMARD therapy with methotrexate. This caused GI upset and eventually she was switched to Humira. She has been on Humira since April of 2021. Initial note suggested some improvement in her wrist pain but she does not think it has persisted. She continues to get left greater than right wrist pain. She is seeing the hand surgeon in the next few weeks to see a surgical procedure might be helpful. She wonders if she actually has RA. [facility] Medical History Latent tuberculosis by blood test Sacroiliac joint pain Tendonitis of ankle, right Social History Household Members: Spouse and Family Housing: House Alcohol intake: current Alcohol intake frequency: a few times a month Patient Tobacco Use Status: Current everyday Tobacco user Tobacco use type: Cigarette Cigarettes Per Day: 10 Years Smoked: 15 years e-Cigarette/Vaping Use: Never Used service: No Current occupational status: employed 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 Review of Systems Musc Reports back pain, Reports myalgias, Reports numbness and Reports tingling Neuro Reports numbness and Reports tingling Physical Exam Vital Signs: Last Vital Signs Pulse 66 11/12/24 14:58 BP 116/70 11/12/24 14:58 Pulse Ox 99 11/12/24 14:58 Oxygen Delivery Method Simple Mask 11/12/24 14:58 BMI result Body Mass Index 27.8 Const General: cooperative and healthy appearing Nutritional Appearance: overweight Limitations: no limitations HEENT Head: Yes normocephalic and Yes atraumatic Mouth: moist mucous membranes Resp Effort & Inspection: normal respiratory effort and able to speak in complete sentences Extrem Other: No active synovitis on exam Normal bilateral hand car trimmer strength Multiple fibromyalgia tender points Negative rotator cuff provocative maneuvers bilaterally with negative Speed's test Tenderness to palpation along the mid thoracic ribs posteriorly, more severe on the right No rashes noted Normal nailfold capillaroscopy Assessment & Plan Assessment & Plan (1) Rheumatoid arthritis with positive rheumatoid factor: Comment: Dx 10/2020: RF 113. CCP>250 Methotrexate 10/25 -05/2021 -stopped due to LFT elevations 05/2021 - Humira started - ?improvement 08/2022 _ Humira stopped for wrist surgery leflunomide 04/2023-05/2024 DC due to diverticulitis Enbrel 05/2023 DC 06/2023 due to diverticulitis Remicade 04/2024 DC after 1 dose as patient had a positive QuantiFERON test Code(s): M05.9 - Rheumatoid arthritis with rheumatoid factor, unspecified Category: Medical Qualifiers: Rheumatoid arthritis location: multiple sites Qualified Code(s): M05.79 - Rheumatoid arthritis with rheumatoid factor of multiple sites without organ or systems involvement Plan: This is a 59-year-old female with seropositive RA who presents for follow-up. Patient is not on any DMARDs currently, her most recent DMARD was Remicade, she received 1 dose and she was found to have a positive QuantiFERON test, treatment was discontinued and started on rifampin. On exam today I do not see any active synovitis. In the past, the diagnosis of RA was in question. I think at this time patient does not require a DMARD. Continue to monitor patient clinically Follow-up in 6 months (2) Rib pain: Code(s): R07.81 - Pleurodynia Category: Medical Plan: 2D echo was unremarkable. As well as other wrists imaging studies. Recent SI joint injection was not helpful. Per patient she was recently diagnosed with slipped rib syndrome, she received an injection in her rib per patient it was helpful and is planned for surgery, has not been scheduled yet (3) Latent tuberculosis by blood test: Comment: +ve QuantiFERON 2023. rifampin 05/2024 Code(s): Z22.7 - Latent tuberculosis Category: Medical (4) Fibromyalgia, primary: Code(s): M79.7 - Fibromyalgia Category: Medical Plan: Discussed management of fibromyalgia with patient. Is a noninflammatory, non- autoimmune central afferent processing disorder leading to a diffuse pain syndrome. I patient follows up regularly with a psychiatrist and a psychotherapist. Try to follow sleep hygiene practices. Request a referral for a sleep study from PCP to rule out MANUEL. Patient would benefit from increased physical activity, either through formal physical therapy or by joining a gym. Advised patient that she should start activity slowly and increase as tolerated. Consider low-impact exercises such as walking, swimming, aqua therapy stretching, yoga. She is on gabapentin 100 mg t.i.d. can consider increasing the dose Plan I spent 20 minutes reviewing patient's chart, evaluating patient, counseling patient and documenting in the chart Coding Level of Care Code Est Pt Level 4 (80285) Diagnoses Rheumatoid arthritis involving multiple sites with positive rheumatoid factor M05.79 Rheumatoid arthritis location: multiple sites Rib pain R07.81 Latent tuberculosis by blood test Z22.7 Fibromyalgia, primary M79.7
[2024-11-12 14:58] VITALS: BP 116/70; PULSE 66; O2SAT 99; BMI 27.8
== END 2024-11-12 15:53 | disposition home or self-care (01) ==
PROVIDERS: PCP Family Medicine; Visit Provider Student in an Organized Health Care Education/Training Program
DX: M05.79 Rheumatoid arthritis with rheumatoid factor of multiple sites without organ or systems involvement (principal); R07.81 Pleurodynia; Z22.7 Latent tuberculosis; M79.7 Fibromyalgia
CPT/HCPCS: 99214

== ENCOUNTER → 2024-11-12 14:44 | Outpatient (BNVA) | payer OTHER, SELFPAY | PROVIDERS: PCP Family Medicine; Visit Provider Student in an Organized Health Care Education/Training Program ==

== ENCOUNTER 2024-12-24 08:34 | Outpatient (REF) | payer OTHER, SELFPAY ==
--- OUTSIDE RECORDS SUMMARY | 2024-12-24 10:27 | XMS_ITS | Encounter Summary ---
Author Organization [facility] Address [address] [place] [address] Care Team Providers Care Manager Ct Name Role Phone Araceli Augustin Primary Care Provider + Reason for Visit * Reason Onset Date Comments Prior Authorization 11/20/2024 Encounter Details Date Type Department Care Team (Late st Contact Info) Description 11/20/2024 Telephone Gastroenterology - [place] [address] [place] [address] Rajan Sanders PA [address] [place], [place] [phone] Prior Authorization Social History Tobacco Use Types [...] of Assessment Author No 10/26/2024 8:04 AM Motny Rivas RN * Do you have serious [...] this a Cover My Meds request: YES [id number] Name of Medication sucralfate (CARAFATE) Dose of Medication 100 mg/mL suspension What is the RX # from the faxed refill? How does patient take this med? Take 10 mL (1 g total) by mouth 4 (four) times a day (with meals and nightly). Take 1 hour before meals and at bedtime What Pharmacy did the fax come from: [facility] Pharmacy fax #: [phone]. documented in this encounter Plan of Treatment Upcoming Encounters Date Type Department Care Team (Late st Contact Info) Description 12/26/2024 8:15 AM EST Appointment [facility] Xray [address] [place] [phone] 12/27/2024 3:15 PM EST Office Visit Neurosurgery [facility] [address] [facility] [address] [place] [phone] Peggy Leon MD [address] [place] [address] documented as of this encounter Visit Diagnoses Not on filedocumented in this encounter Additional Health Concerns Infection Onset Date Last Indicated Resolved Time Respiratory Rule-Out 12/05/2024 12/05/2024 025 4:51 PM EST Respiratory Rule-Out 12/14/2024 12/14/2024 025 5:56 PM EST COVID-19 Rule-Out 12/14/2024 12/14/2024 12/14/2024 5:56 PM EST documented as of this encounter Care Teams Manager Ct Relationship Specialty Start Date End Date Araceli Augustin PA [address] [facility] [address] [place] [phone] PCP - General 11/20/24 documented as of this encounter
--- OUTSIDE RECORDS SUMMARY | 2024-12-24 10:28 | XMS_ITS | Encounter Summary ---
Author Organization [facility] [address] Address [address] [place] [address] Care Team Providers Care Paint Mixer Machine Name Role Phone Araceli Augustin Primary Care Provider + Encounter Details Date Type Department Care Team (Late st Contact Info) Description 12/16/2024 Telephone Neurosurgery [facility] [address] [place] [address] Cielo Perez MA Social History [...] joints. Does not yet have appt with [facility] neurosurgery. Cielo, Do you have sooner appt [...] Info) Description 12/26/2024 8:15 AM EST Appointment [facility] Xray [address] [place] [phone] 12/27/2024 3:15 PM EST Office Visit Neurosurgery [facility] 175 [facility] [address] [place] [phone] Peggy Rodriguez MD [address] [place] [address] documented as of this encounter Visit Diagnoses Not on filedocumented in this encounter Care Teams Paint Mixer Machine Relationship Specialty Start Date End Date Araceli Augustin PA 299 [facility] [address] [place] [phone] PCP - General 11/20/24 documented as of this encounter
--- OUTSIDE RECORDS SUMMARY | 2024-12-24 10:28 | XMS_ITS | Encounter Summary ---
Author Organization [facility] Address [address] [place] [address] Care Team Providers Care Waxing Machine Operator Name Role Phone Araceli Augustin Primary Care Provider + Reason for Visit * Reason Comments Weakness - Generalized Encounter Details Date Type Department Care Team (Late st Contact Info) Description 12/05/2024 2:30 PM EST - 12/05/2024 9:23 PM EST Emergency [facility] Emergency [address] [place] [address] Pain of right hip (Primary [...] better Thank you for coming to the [facility] Emergency Department today. Our entire team [...] or require a referral, a follow-up doctor education and training manager for the emergency department will be provided [...] following to make arrangements to follow up. [facility] Suze Maile Suze [facility] documented in this encounter Medications at Time [...] from the original note were not included. 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 All results must [...] Procedure Abnormality Status --------- ------ CBC auto differential[[id number]] Abnormal Final result Please view results for [...] is no skin changes to these regions. Systems Software Designer strength is good and equal. Will give [...] rate within normal limits at 20. [CC] 9095 Patient reevaluated at this time. Patient specifically [...] Info) Description 12/26/2024 8:15 AM EST Appointment [facility] Xray [address] [place] [phone] 12/27/2024 3:15 PM EST Office Visit Neurosurgery [facility] [address] [phone] Peggy Leon MD [address] [place] [address] Scheduled Orders Name Type Priority Associated Diagnoses [...] LAB MICROBIOLOGY METHOD 12/05/2024 4:51 PM EST [facility] Influenza A PCR Not Detected Not Detected LAB MICROBIOLOGY METHOD 12/05/2024 4:51 PM EST [facility] Influenza B PCR Not Detected Not Detected LAB MICROBIOLOGY METHOD 12/05/2024 4:51 PM EST [facility] Coronavirus 229E Not Detected Not Detected LAB MICROBIOLOGY METHOD 12/05/2024 4:51 PM EST [facility] Coronavirus HKU1 Not Detected Not Detected LAB MICROBIOLOGY METHOD 12/05/2024 4:51 PM EST [facility] Coronavirus OC43 Not Detected Not Detected LAB MICROBIOLOGY METHOD 12/05/2024 4:51 PM [facility] Coronavirus NL63 Not Detected Not Detected LAB MICROBIOLOGY METHOD 12/05/2024 4:51 PM [facility] Parainfluenza Virus 1 Not Detected Not Detected LAB MICROBIOLOGY METHOD 12/05/2024 4:51 PM [facility] Parainfluenza Virus 2 Not Detected Not Detected LAB MICROBIOLOGY METHOD 12/05/2024 4:51 PM [facility] Parainfluenza Virus 3 Not Detected Not Detected LAB MICROBIOLOGY METHOD 12/05/2024 4:51 PM [facility] Parainfluenza Virus 4 Not Detected Not Detected LAB MICROBIOLOGY METHOD 12/05/2024 4:51 PM [facility] RSV PCR Not Detected Not Detected LAB MICROBIOLOGY METHOD 12/05/2024 4:51 PM [facility] Human Metapneumovirus A and B Not Detected Not Detected LAB MICROBIOLOGY METHOD 12/05/2024 4:51 PM [facility] Rhinovirus/Entero virus Not Detected Not Detected LAB MICROBIOLOGY METHOD 12/05/2024 4:51 PM [facility] Bordetella pertussis Not Detected Not Detected LAB MICROBIOLOGY METHOD 12/05/2024 4:51 PM [facility] Bordetella parapertussis Not Detected Not Detected LAB MICROBIOLOGY METHOD 12/05/2024 4:51 PM [facility] Mycoplasma pneumo by PCR Not Detected Not Detected LAB MICROBIOLOGY METHOD 12/05/2024 4:51 PM [facility] Chlamydia pneumoniae Not Detected Not Detected LAB MICROBIOLOGY METHOD 12/05/2024 4:51 PM [facility] SARS COV-2 Not Detected Not Detected LAB MICROBIOLOGY METHOD 12/05/2024 4:51 PM [facility] Swab Both anterior nares / Unknown Non-blood Collection / Unknown 12/05/2024 3:43 PM EST 12/05/2024 3:51 PM EST Narrative [facility] - 12/05/2024 4:51 PM EST Testing was performed using the [employer] Respiratory Pathogen PCR Assay. All results must [...] L ORDERABLES Final Result Performing Organization Address [facility]/ZIP Co de Phone Number [facility] [address] [place] [address], * Creatine kinase (12/05/2024 1:30 PM EST) Pathologist [facility] Total CK 80 22 - 269 unit/L LAB CHEMISTRY METHOD 12/05/2024 2:05 PM EST [facility] Blood Venous blood specimen / Unknown Venipuncture / Unknown 12/05/2024 1:30 PM EST 12/05/2024 1:39 PM EST us Jewel Hernández MD LAB BLOOD ORDERABLES Final Resu lt Performing Organization Address City/[facility]/ZIP Co de Phone Number [facility] [address] [place] [address], [place] [phone] * C-reactive protein (12/05/2024 1:30 PM EST) C-Reactive Protein <0.29 <=0.50 mg/dL LAB CHEMISTRY METHOD 12/05/2024 2:05 PM EST [facility] Blood Venous blood specimen / Unknown Venipuncture / Unknown 12/05/2024 1:30 PM EST 12/05/2024 1:39 PM EST us Jewel Hernández MD LAB BLOOD ORDERABLES Final Resu lt Performing Organization Address [facility]/ZIP Co de Phone Number [facility] [address] [place] [address], [place] [phone] * Sedimentation rate, automated (12/05/2024 1:30 PM EST) [facility] Sed Rate 20 0 - 30 mm/hr LAB HEMETOLOGY METHOD 12/05/2024 1:59 PM EST [facility] Blood Venous blood specimen / Unknown Venipuncture / Unknown 12/05/2024 1:30 PM EST 12/05/2024 1:39 PM EST us Jewel Hernández MD LAB BLOOD ORDERABLES Final Resu lt Performing Organization Address [facility] Phone Number [facility] [address] [place] [address], [place] [phone] * Borrelia burgdorferi antibody (12/05/2024 1:30 PM EST) [facility] Lyme Ab Negative Negative LAB CHEMISTRY METHOD 12/06/2024 9:08 AM EST [facility] Comment: No laboratory evidence of infection [...] ORDERABLES Final Resu lt Performing Organization Address [facility] de Phone Number [facility] [address] [place] [address], [place] [phone] * (ABNORMAL) CBC auto differential (12/05/2024 1:30 PM EST) [facility] WBC 8.3 4.8 - 10.8 K/mcL LAB HEMETOLOGY METHOD 12/05/2024 1:51 PM [facility] RBC 4.20 3.80 - 4.80 M/mcL LAB HEMETOLOGY METHOD 12/05/2024 1:51 PM [facility] Hemoglobin 13.4 11.5 - 16.0 g/dL LAB HEMETOLOGY METHOD 12/05/2024 1:51 PM [facility] Hematocrit 40.3 35.0 - 47.0 % LAB HEMETOLOGY METHOD 12/05/2024 1:51 PM [facility] MCV 96.6 79.0 - 98.0 FL LAB HEMETOLOGY METHOD 12/05/2024 1:51 PM [facility] MCH 32.1(H) 27.0 - 32.0 pcg LAB HEMETOLOGY METHOD 12/05/2024 1:51 PM [facility] MCHC 33.3 32.0 - 37.0 g/dL LAB HEMETOLOGY METHOD 12/05/2024 1:51 PM [facility] RDW 13.5 11.0 - 15.0 % LAB HEMETOLOGY METHOD 12/05/2024 1:51 PM [facility] Platelets 291 130 - 400 K/mcL LAB HEMETOLOGY METHOD 12/05/2024 1:51 PM [facility] MPV 9.4 7.0 - 11.0 FL LAB HEMETOLOGY METHOD 12/05/2024 1:51 PM [facility] NRBC 0.0 <1.0 % LAB HEMETOLOGY METHOD 12/05/2024 1:51 PM [facility] NRBC Absolute 0.00 <0.10 K/[facility] LAB HEMETOLOGY METHOD 12/05/2024 1:51 PM [facility] Neutrophils Relative 57.8 % LAB HEMETOLOGY METHOD 12/05/2024 1:51 PM [facility] Lymphocytes Relative 32.0 % LAB HEMETOLOGY METHOD 12/05/2024 1:51 PM [facility] Monocytes Relative 7.2 % LAB HEMETOLOGY METHOD 12/05/2024 1:51 PM [facility] Eosinophils Relative 2.1 % LAB HEMETOLOGY METHOD 12/05/2024 1:51 PM [facility] Basophils Relative 0.5 % LAB HEMETOLOGY METHOD 12/05/2024 1:51 PM [facility] Immature Granulocytes Relative 0.4 % LAB HEMETOLOGY METHOD 12/05/2024 1:51 PM [facility] Neutrophils Absolute 4.79 1.50 - 7.00 K/mcL LAB HEMETOLOGY METHOD 12/05/2024 1:51 PM [facility] Lymphocytes Absolute 2.65 1.00 - 5.00 K/mcL LAB HEMETOLOGY METHOD 12/05/2024 1:51 PM [facility] Monocytes Absolute 0.60 0.20 - 1.00 K/mcL LAB HEMETOLOGY METHOD 12/05/2024 1:51 PM [facility] Eosinophils Absolute 0.17 0.00 - 0.50 K/mcL LAB HEMETOLOGY METHOD 12/05/2024 1:51 PM [facility] Basophils Absolute 0.04 0.00 - 0.20 K/mcL LAB HEMETOLOGY METHOD 12/05/2024 1:51 PM [facility] Immature Granulocytes Absolute 0.03 0.00 - 0.03 K/mcL LAB HEMETOLOGY METHOD 12/05/2024 1:51 PM [facility] Blood Venous blood specimen / Unknown Venipuncture / Unknown 12/05/2024 1:30 PM EST 12/05/2024 1:39 PM EST Stephanie Nina LAB BLOOD ORDERABLES Nataliia l Result Performing Organization Address City/[facility]/ZIP Co de Phone Number [facility] [address] [place] [address], [place] [phone] * Magnesium (12/05/2024 1:30 PM EST) Pathologist [facility] Magnesium 2.2 1.9 - 2.6 mg/dL LAB CHEMISTRY METHOD 12/05/2024 2:05 PM [facility] Blood Venous blood specimen / Unknown Venipuncture / Unknown 12/05/2024 1:30 PM EST 12/05/2024 1:39 PM EST [facility] Austen Nina LAB BLOOD ORDERABLES Nataliia l Result Performing Organization Address [facility]/ZIP Co de Phone Number [facility] [address] [place] [address], [place] [phone] * (ABNORMAL) Basic metabolic panel (12/05/2024 1:30 PM EST) [facility] Sodium 139 133 - 145 mmol/L LAB CHEMISTRY METHOD 12/05/2024 2:05 PM [facility] Potassium 4.5 3.5 - 5.5 mmol/L LAB CHEMISTRY METHOD 12/05/2024 2:05 PM [facility] Chloride 106 96 - 110 mmol/L LAB CHEMISTRY METHOD 12/05/2024 2:05 PM [facility] CO2 28 21 - 32 mmol/L LAB CHEMISTRY METHOD 12/05/2024 2:05 PM [facility] Anion Gap 5 3 - 11 LAB CHEMISTRY METHOD 12/05/2024 2:05 PM [facility] Glucose 103(H) 70 - 100 mg/dL LAB CHEMISTRY METHOD 12/05/2024 2:05 PM [facility] BUN 8 5 - 25 mg/dL LAB CHEMISTRY METHOD 12/05/2024 2:05 PM EST [facility] Creatinine 0.81 0.50 - 1.10 mg/dL LAB CHEMISTRY METHOD 12/05/2024 2:05 PM EST [facility] eGFR 85 >=60 mL/min/1. 73m2 LAB CHEMISTRY METHOD 12/05/2024 2:05 PM EST [facility] Comment:Calculation based on the??Chronic Kidney Disease Epidemiology Collaboration (CKD-EPI) equation refit??without adjustment for race. BUN/Creatinine Ratio 9.9 LAB CHEMISTRY METHOD 12/05/2024 2:05 PM [facility] Calcium 9.2 8.5 - 10.5 mg/dL LAB CHEMISTRY METHOD 12/05/2024 2:05 PM [facility] Blood Venous blood specimen / Unknown Venipuncture / Unknown 12/05/2024 1:30 PM EST 12/05/2024 1:39 PM EST us Swapnil Austen Nina DO LAB BLOOD ORDERABLES Nataliia l Result [facility] [address] [place] [address], documented in this encounter Visit Diagnoses Diagnosis [...] documented as of this encounter Care Teams Waxing Machine Operator Relationship Specialty Start Date End Date Araceli Augustin PA [address] [place] [phone] PCP - General 11/20/24 documented as of this encounter
--- OUTSIDE RECORDS SUMMARY | 2024-12-24 10:28 | XMS_ITS | Encounter Summary ---
Author Organization [facility] Address [address] [place] [address] Care Team Providers Care Human Relations Teacher Name Role Phone Araceli Augustin Primary Care Provider + Reason for Visit * Reason Comments Extremity Weakness BILATERAL LEG NUMBNE SS X4 DAYS Encounter Details Date Type Department Care Team (Late st Contact Info) Description 12/14/2024 2:01 PM EST - 12/14/2024 9:20 PM EST Emergency [facility] Emergency [address] [place] [address] Acute bilateral low back pain, [...] a primary care physician, please call the [facility] at [phone] [facility] a new primary care physician. Please return to the emergency department if you develop any severe change in your symptoms, or if you experience any other new or worsening symptoms or concerns. * Attachments The following attachments cannot be sent through Care Everywhere. * Back Pain (Palauan) * Numbness and Tingling (Palauan) documented in this encounter Medications at Time [...] outpatient lumbar puncturedone by her neurologist through [facility]. Denies any IVDU, recent steroid use, [...] tissue CARPAL TUNNEL RELEASE Right 01/20/2020 PROCEDURE: ND NEUROPLASTY &/TRANSPOS MEDIAN NRV CARPAL TUNNE COLONOSCOPY [...] objects appropriately, follows simple commands, finger-nose and [id number] testing are intact. PSYCHIATRIC: Normal affect, fluid [...] Detected Narrative: Testing was performed using the garbs Respiratory Pathogen PCR Assay. All results must [...] REFLEX MICROSCOPIC AND CULTURE - Normal Specific Morgan Urine 1.012 pH, Urine 7.5 Leukocytes, Urine Negative Nitrite, Urine Negative Protein, Urine Negative Glucose, Urine Negative Ketones, Urine Negative Urobilinogen, Urine 0.2 Bilirubin, Urine Negative Blood, Urine Negative CBC AND DIFFERENTIAL Narrative: The following orders were created for panel order CBC and differential. Procedure Abnormality Status --------- ------ CBC auto differential[[id number]] Abnormal Final result Please view results for these tests on the individual orders. URINALYSIS WITH REFLEX MICROSCOPIC AND CULTURE Narrative: The following orders were created for panel order Urinalysis with reflex microscopic and culture. Procedure Abnormality Status --------- ------ Urinalysis with reflex ...[[id number]] Normal Final result Inman urine culture tube[[id number]] Final result Please view results for these [...] answered. [YB] ED Course User Index [YB] TL Brooks Clinical Impressions as of 12/14/242114 Acute [...] Info) Description 12/26/2024 8:15 AM EST Appointment [facility] Xray [address] [place] [address] 12/27/2024 3:15 PM EST Office Visit Neurosurgery [facility] [address] [place] [phone] Peggy Leon MD [address] [place] [address] documented as of this encounter Procedures Procedure [...] Signed Date: 12/15/2024 07:42 ET Workstation ID: [id number] Transcribed By: Self Edit Transcribed Date: 12/15/2024 [...] Signed Date: 12/15/2024 07:42 ET Workstation ID: [id number] Transcribed By: Self Edit Transcribed Date: 12/15/2024 07:40 ET us Dwight BOOTHE IMG XR PROCEDURES Final Result * Inman urine culture tube (12/14/2024 5:16 PM EST) Pathologist [facility] Extra Tube Hold for add-ons. 12/14/2024 7:02 PM EST [facility] Comment:Auto resulted. Urine Urine specimen obtained by clean catch procedure / Unknown Non-blood Collection / Unknown 12/14/2024 5:16 PM EST 12/14/2024 5:38 PM EST us Dwight BOOTHE LAB URINE ORDERABLES Final Resul t [facility] [address] [place] [address], [place] [phone] * Urinalysis with reflex microscopic and culture (12/14/2024 5:16 PM EST) Pathologist [facility] Specific Morgan Urine 1.012 1.003 - 1.030 LAB URINALYSIS - AUTOMATED METHOD 12/14/2024 6:08 PM EST [facility] pH, Urine 7.5 5.0 - 8.0 pH LAB URINALYSIS - AUTOMATED METHOD 12/14/2024 6:08 PM [facility] Leukocytes, Urine Negative Negative LAB URINALYSIS - AUTOMATED METHOD 12/14/2024 6:08 PM [facility] Nitrite, Urine Negative Negative LAB URINALYSIS - AUTOMATED METHOD 12/14/2024 6:08 PM [facility] Protein, Urine Negative <=Trace mg/dL LAB URINALYSIS - AUTOMATED METHOD 12/14/2024 6:08 PM [facility] Glucose, Urine Negative Negative mg/dL LAB URINALYSIS - AUTOMATED METHOD 12/14/2024 6:08 PM [facility] Ketones, Urine Negative Negative mg/dL LAB URINALYSIS - AUTOMATED METHOD 12/14/2024 6:08 PM [facility] Urobilinogen, Urine 0.2 0.2 - 1.0 mg/dL LAB URINALYSIS - AUTOMATED METHOD 12/14/2024 6:08 PM [facility] Bilirubin, Urine Negative Negative LAB URINALYSIS - AUTOMATED METHOD 12/14/2024 6:08 PM [facility] Blood, Urine Negative Negative LAB URINALYSIS - AUTOMATED METHOD 12/14/2024 6:08 PM [facility] Urine Urine specimen obtained by clean catch procedure / Unknown Non-blood Collection / Unknown 12/14/2024 5:16 PM EST 12/14/2024 5:38 PM EST us Dwight BOOTHE LAB URINE ORDERABLES Final Resul t [facility] [address] [place] [address], * CT Head wo Contrast (12/14/2024 4:54 [...] GEMUSE QTc 445 ms GEMUSE P Wave Florence 40 degrees GEMUSE R Florence 6 degrees GEMUSE T Florence 26 degrees GEMUSE ECG Interpretation Normal sinus [...] LAB MICROBIOLOGY METHOD 12/14/2024 5:56 PM EST [facility] Influenza A PCR Not Detected Not Detected LAB MICROBIOLOGY METHOD 12/14/2024 5:56 PM EST [facility] Influenza B PCR Not Detected Not Detected LAB MICROBIOLOGY METHOD 12/14/2024 5:56 PM [facility] Coronavirus 229E Not Detected Not Detected LAB MICROBIOLOGY METHOD 12/14/2024 5:56 PM [facility] Coronavirus HKU1 Not Detected Not Detected LAB MICROBIOLOGY METHOD 12/14/2024 5:56 PM EST [facility] Coronavirus OC43 Not Detected Not Detected LAB MICROBIOLOGY METHOD 12/14/2024 5:56 PM [facility] Coronavirus NL63 Not Detected Not Detected LAB MICROBIOLOGY METHOD 12/14/2024 5:56 PM [facility] Parainfluenza Virus 1 Not Detected Not Detected LAB MICROBIOLOGY METHOD 12/14/2024 5:56 PM [facility] Parainfluenza Virus 2 Not Detected Not Detected LAB MICROBIOLOGY METHOD 12/14/2024 5:56 PM [facility] Parainfluenza Virus 3 Not Detected Not Detected LAB MICROBIOLOGY METHOD 12/14/2024 5:56 PM [facility] Parainfluenza Virus 4 Not Detected Not Detected LAB MICROBIOLOGY METHOD 12/14/2024 5:56 PM [facility] RSV PCR Not Detected Not Detected LAB MICROBIOLOGY METHOD 12/14/2024 5:56 PM [facility] Human Metapneumovirus A and B Not Detected Not Detected LAB MICROBIOLOGY METHOD 12/14/2024 5:56 PM EST [facility] Rhinovirus/Entero virus Not Detected Not Detected LAB MICROBIOLOGY METHOD 12/14/2024 5:56 PM [facility] Bordetella pertussis Not Detected Not Detected LAB MICROBIOLOGY METHOD 12/14/2024 5:56 PM EST [facility] Bordetella parapertussis Not Detected Not Detected LAB MICROBIOLOGY METHOD 12/14/2024 5:56 PM EST [facility] Mycoplasma pneumo by PCR Not Detected Not Detected LAB MICROBIOLOGY METHOD 12/14/2024 5:56 PM [facility] Chlamydia pneumoniae Not Detected Not Detected LAB MICROBIOLOGY METHOD 12/14/2024 5:56 PM [facility] SARS COV-2 Not Detected Not Detected LAB MICROBIOLOGY METHOD 12/14/2024 5:56 PM [facility] Swab Both anterior nares / Unknown Non-blood Collection / Unknown 12/14/2024 4:28 PM EST 12/14/2024 4:34 PM EST [facility] - 12/14/2024 5:56 PM EST [...] MICROBIOLOGY - GENERAL ORDER KAILASH Final Result [facility] [address] [place] [address], * Phosphorus (12/14/2024 12:01 PM EST) Phosphorus 3.5 2.5 - 4.5 mg/dL LAB CHEMISTRY METHOD 12/14/2024 4:31 PM [facility] Blood Venous blood specimen / Unknown Venipuncture / Unknown 12/14/2024 12:01 PM EST 12/14/2024 12:24 PM EST us Dwight BOOTHE LAB BLOOD ORDERABLES Final Resul t [facility] [address] [place] [address], [place] [phone] * (ABNORMAL) CBC auto differential (12/14/2024 12:01 PM EST) WBC 8.5 4.8 - 10.8 K/mcL LAB HEMETOLOGY METHOD 12/14/2024 12:29 PM [facility] RBC 4.40 3.80 - 4.80 M/mcL LAB HEMETOLOGY METHOD 12/14/2024 12:29 PM [facility] Hemoglobin 14.1 11.5 - 16.0 g/dL LAB HEMETOLOGY METHOD 12/14/2024 12:29 PM [facility] Hematocrit 42.2 35.0 - 47.0 % LAB HEMETOLOGY METHOD 12/14/2024 12:29 PM [facility] MCV 96.6 79.0 - 98.0 FL LAB HEMETOLOGY METHOD 12/14/2024 12:29 PM [facility] MCH 32.3(H) 27.0 - 32.0 pcg LAB HEMETOLOGY METHOD 12/14/2024 12:29 PM [facility] MCHC 33.4 32.0 - 37.0 g/dL LAB HEMETOLOGY METHOD 12/14/2024 12:29 PM [facility] RDW 13.2 11.0 - 15.0 % LAB HEMETOLOGY METHOD 12/14/2024 12:29 PM [facility] Platelets 329 130 - 400 K/mcL LAB HEMETOLOGY METHOD 12/14/2024 12:29 PM [facility] MPV 9.5 7.0 - 11.0 FL LAB HEMETOLOGY METHOD 12/14/2024 12:29 PM [facility] NRBC 0.0 <1.0 % LAB HEMETOLOGY METHOD 12/14/2024 12:29 PM [facility] NRBC Absolute 0.00 <0.10 K/mcL LAB HEMETOLOGY METHOD 12/14/2024 12:29 PM [facility] Neutrophils Relative 73.7 % LAB HEMETOLOGY METHOD 12/14/2024 12:29 PM [facility] Lymphocytes Relative 17.8 % LAB HEMETOLOGY METHOD 12/14/2024 12:29 PM [facility] Monocytes Relative 6.9 % LAB HEMETOLOGY METHOD 12/14/2024 12:29 PM [facility] Eosinophils Relative 0.8 % LAB HEMETOLOGY METHOD 12/14/2024 12:29 PM [facility] Basophils Relative 0.4 % LAB HEMETOLOGY METHOD 12/14/2024 12:29 PM [facility] Immature Granulocytes Relative 0.4 % LAB HEMETOLOGY METHOD 12/14/2024 12:29 PM [facility] Neutrophils Absolute 6.29 1.50 - 7.00 K/mcL LAB HEMETOLOGY METHOD 12/14/2024 12:29 PM [facility] Lymphocytes Absolute 1.52 1.00 - 5.00 K/mcL LAB HEMETOLOGY METHOD 12/14/2024 12:29 PM [facility] Monocytes Absolute 0.59 0.20 - 1.00 K/mcL LAB HEMETOLOGY METHOD 12/14/2024 12:29 PM [facility] Eosinophils Absolute 0.07 0.00 - 0.50 K/[facility] LAB HEMETOLOGY METHOD 12/14/2024 12:29 PM EST [facility] Basophils Absolute 0.03 0.00 - 0.20 K/[facility] LAB HEMETOLOGY METHOD 12/14/2024 12:29 PM EST [facility] Immature Granulocytes Absolute 0.03 0.00 - 0.03 K/[facility] LAB HEMETOLOGY METHOD 12/14/2024 12:29 PM EST [facility] Blood Venous blood specimen / Unknown Venipuncture / Unknown 12/14/2024 12:01 PM EST 12/14/2024 12:24 PM EST Pepe Mar LAB BLOOD ORDERABLES Final Result Performing Organization Address [facility]/ZIP Co de Phone Number [facility] [address] [place] [address], [place] [phone] * Magnesium (12/14/2024 12:01 PM EST) Pathologist [facility] Magnesium 2.0 1.9 - 2.6 mg/dL LAB CHEMISTRY METHOD 12/14/2024 12:51 PM [facility] Blood Venous blood specimen / Unknown Venipuncture / Unknown 12/14/2024 12:01 PM EST 12/14/2024 12:24 PM EST Pepe Mar DO LAB BLOOD ORDERABLES Final Result Performing Organization Address [facility]/ZIP Co de Phone Number [facility] [address] [place] [address], [place] [phone] * (ABNORMAL) Basic metabolic panel (12/14/2024 12:01 PM EST) Sodium 138 133 - 145 mmol/L LAB CHEMISTRY METHOD 12/14/2024 12:59 PM EST [facility] Potassium 4.5 3.5 - 5.5 mmol/L LAB CHEMISTRY METHOD 12/14/2024 12:59 PM [facility] Chloride 106 96 - 110 mmol/L LAB CHEMISTRY METHOD 12/14/2024 12:59 PM [facility] CO2 28 21 - 32 mmol/L LAB CHEMISTRY METHOD 12/14/2024 12:59 PM [facility] Anion Gap 4 3 - 11 LAB CHEMISTRY METHOD 12/14/2024 12:59 PM [facility] Glucose 119(H) 70 - 100 mg/dL LAB CHEMISTRY METHOD 12/14/2024 12:59 PM [facility] BUN 13 5 - 25 mg/dL LAB CHEMISTRY METHOD 12/14/2024 12:59 PM [facility] Creatinine 0.82 0.50 - 1.10 mg/dL LAB CHEMISTRY METHOD 12/14/2024 12:59 PM [facility] eGFR 84 >=60 mL/min/1. 73m2 LAB CHEMISTRY METHOD 12/14/2024 12:59 PM [facility] Comment:Calculation based on the??Chronic Kidney Disease Epidemiology Collaboration (CKD-EPI) equation refit??without adjustment for race. BUN/Creatinine Ratio 15.9 LAB CHEMISTRY METHOD 12/14/2024 12:59 PM [facility] Calcium 9.6 8.5 - 10.5 mg/dL LAB CHEMISTRY METHOD 12/14/2024 12:59 PM [facility] Blood Venous blood specimen / Unknown Venipuncture / Unknown 12/14/2024 12:01 PM EST 12/14/2024 12:24 PM EST us Pepe Mar DO LAB BLOOD ORDERABLES Final Result [facility] [address] [place] [address], * ECG-Annotated (12/14/2024) us Provider Onbase MD [...] documented as of this encounter Care Teams Human Relations Teacher Relationship Specialty Start Date End Date Araceli Augustin PA [address] [address] PCP - General 11/20/24 documented as of this encounter
--- OUTSIDE RECORDS SUMMARY | 2024-12-24 10:29 | XMS_ITS | Encounter Summary ---
Author Organization [facility] Address [address] [place] [address] Care Team Providers Care Infant And Toddler Teacher Name Role Phone Araceli Augustin Primary Care Provider + Reason for Visit * Reason Onset Date Comments Arm Pain 11/27/2024 Encounter Details Date Type Department Care Team (Late st Contact Info) Description 11/27/2024 Telephone Orthopedic Surgery - [place] [address] [facility] [address] [place] [phone] Nichelle Archibald PA [address] [facility] [address] [place] [phone] Arm Pain Social History Tobacco Use Types [...] calling today, states she sent in this [employer] message earlier in the day : Since [...] Info) Description 12/26/2024 8:15 AM EST Appointment [facility] Xray [address] [place] [address] 12/27/2024 3:15 PM EST Office Visit Neurosurgery [facility] [address] [facility] [address] [place] [phone] Peggy Leon MD [address] [place], [place] [phone] documented as of this encounter Visit Diagnoses Not on filedocumented in this encounter Care Teams Infant And Toddler Teacher Relationship Specialty Start Date End Date Araceli Augustin PA [address] [facility] [address] [place] [address] PCP - General 11/20/24 documented as of this encounter
--- OUTSIDE RECORDS SUMMARY | 2024-12-24 10:29 | XMS_ITS | Clinical Summary ---
Author Organization [facility] Address [address] [place] [address] Care Team Providers Care Sample Tailor Name Role Phone Vee Allan MD Primary [...] age to complete this topic Care Teams Sample Tailor Relationship Specialty Start Date End Date Vee Allan MD PCP - General Internal Medicine 12/05/19
--- OUTSIDE RECORDS SUMMARY | 2024-12-24 10:29 | XMS_ITS | Encounter Summary ---
Author Organization [facility] Address [address] [place] [address] Care Team Providers Care Upset Operator Name Role Phone Unavailable Primary Care Provider Unavailabl e Encounter Details Date Type Department Care Team (Late st Contact Info) Description 08/06/2024 8:23 AM EDT Hospital Encounter TH HISTORIC ENCOUNTERS [facility] ONLY Tutu Trivedi MD [address] [place] [address] Social History Tobacco Use Types Packs/Day Years [...] Appointment [facility] Xray [address] [place] [address] 12/27/2024 3:15 PM EST Office Visit Neurosurgery [facility] [address] [phone] Peggy Leon MD [address] [place] [address] documented as of this encounter Visit Diagnoses Not on filedocumented in this encounter Additional Health Concerns Infection Onset Date Last Indicated Resolved Time Respiratory Rule-Out 12/05/2024 12/05/2024 025 4:51 PM EST Respiratory Rule-Out 12/14/2024 12/14/2024 025 5:56 PM EST COVID-19 Rule-Out 12/14/2024 12/14/2024 12/14/2024 5:56 PM EST documented as of this encounter
--- OUTSIDE RECORDS SUMMARY | 2024-12-24 10:29 | XMS_ITS | Clinical Summary ---
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 [place] at [facility], had injection in the right lower [...] Department Care Team Description 12/16/2024 Telephone Neurosurgery [facility] [address] [facility] [address] [place] [address] Kanika Perez MA 12/14/2024 2:01 PM EST - 12/14/2024 9:20 PM EST Emergency [facility] Emergency [address] [place] [address] Acute bilateral low back pain, unspecified whether sciatica present (Primary Dx); Tingling in extremities Discharge Disposition: Home or Self Care 12/05/2024 2:30 PM EST - 12/05/2024 9:23 PM EST Emergency [facility] Emergency [address] [place] [phone] Pain of right hip (Primary Dx) Discharge Disposition: Home or Self Care 11/27/2024 Telephone [facility]opedic [facility] [address] [facility] [address] [place] [phone] Nichelle Archibald PA Arm Pain 11/20/2024 8:40 AM EST Office Visit [facility] 175 [facility] 175 [facility] [address] [place] [address] Rajan Sanders PA Slipped rib syndrome (Primary Dx); Right flank pain; Globus sensation; Epigastric pain; Passage of loose stools 11/20/2024 Telephone [facility] 175 [facility] 175 [facility] [address] [place] [phone] Rajan Sanders PA 11/20/2024 Telephone [facility] 175 [facility] 175 [facility] [address] [place] [address] Rajan Sanders PA Medication Problem 11/20/2024 Telephone [facility] 175 [facility] 175 [facility] [address] [place] [phone] Rajan Sanders PA 11/20/2024 Telephone [facility] 175 [facility] [address] [phone] Rajan Sanders PA Prior Authorization 11/19/2024 Telephone Neurosurgery [facility] 175 [facility] [address] [place] [address] Vanesa Lebron PA 11/18/2024 12:22 PM EST - 11/18/2024 11:59 PM EST Hospital Encounter [facility] Neurodiagnostic [address] [place] [phone] Paresthesias in right hand; Neck pain Discharge Disposition: Home or Self Care 11/18/2024 12:22 PM EST - 11/18/2024 11:59 PM EST Hospital Encounter [facility] Xray [address] [place] [phone] Chest pain, unspecified; Pain in right arm; Paresthesia of skin Discharge Disposition: Home or Self Care 11/18/2024 Telephone Orthopedic [facility] [address] [facility] [address] [place] [address] Nichelle Archibald PA 11/11/2024 10:45 AM EST Office Visit Orthopedic [facility] 175 [facility] [address] [place] [address] Nichelle Archibald PA Pain in both upper extremities (Primary Dx) 11/05/2024 2:30 PM EST Consult Neurosurgery [facility] 175 [facility] [address] [place] [address] Vanesa Lebron PA Cervical spondylosis (Primary Dx); Paresthesias in right hand 10/26/2024 7:56 AM EST - 10/26/2024 2:26 PM EST Emergency [facility] Emergency [address] [place] [address] Axel Wiley MD Tremors of nervous system (Primary Dx) Discharge Disposition: Home or Self Care 10/25/[address] [phone] Lee Garcia MD lab work 10/09/2024 7:37 PM EST - 10/09/2024 8:28 PM EST Emergency [facility] Emergency [address] [place] [address] Discharge Disposition: Home or Self Care 10/01/2024 3:45 PM EST Office Visit Orthopedic [facility] 175 [facility] [address] [place] [phone] Nichelle Archibald PA Bursitis of right shoulder (Primary Dx); Right elbow pain; Paresthesias in right hand; Neck pain 09/24/2024 11:07 AM EST - 09/24/2024 11:59 PM EST Hospital Encounter [facility] Xray [address] [place] [address] Sacroiliitis, not elsewhere classified (CMS/HCC) Discharge Disposition: Home or Self Care from Last 3 Months Immunizations Name Administration Dates Next Due Hepatitis B (Ylojvgk-S-Buqcx , Recombivax HB-Adult) 19yo and older 02/21/2022,01/17/2022 [...] tissue CARPAL TUNNEL RELEASE 01/20/2020 Right PROCEDURE: [place] NEUROPLASTY &/TRANSPOS MEDIAN NRV CARPAL TUNNE COLONOSCOPY OTHER SURGICAL HISTORY 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 [facility] Medical History Medical History Date Comments Anxiety [...] Info) Description 12/26/2024 8:15 AM EST Appointment [facility] Xray [address] [place] [phone] 12/27/2024 3:15 PM EST Office Visit Neurosurgery [facility] [address] [phone] Peggy Leon MD [address] [place] [address] Health Maintenance Due Date Last Done Comments [...] Signed Date: 12/15/2024 07:42 ET Workstation ID: [id number] Transcribed By: Self Edit Transcribed Date: 12/15/2024 [...] Signed Date: 12/15/2024 07:42 ET Workstation ID: [id number] Transcribed By: Self Edit Transcribed Date: 12/15/2024 07:40 ET Dwight BOOTHE IMCurt XR PROCEDURES Final Result * Urinalysis with reflex microscopic and culture (12/14/2024 5:16 PM EST) Only the most recent of2 resultswithin the time period is included. Specific [place] Urine 1.012 1.003 - 1.030 LAB URINALYSIS - AUTOMATED METHOD 12/14/2024 6:08 PM [facility] pH, Urine 7.5 5.0 - 8.0 pH LAB URINALYSIS - AUTOMATED METHOD 12/14/2024 6:08 PM [facility] Leukocytes, Urine Negative Negative LAB URINALYSIS - AUTOMATED METHOD 12/14/2024 6:08 PM [facility] Nitrite, Urine Negative Negative LAB URINALYSIS - AUTOMATED METHOD 12/14/2024 6:08 PM [facility] Protein, Urine Negative <=Trace mg/dL LAB URINALYSIS - AUTOMATED METHOD 12/14/2024 6:08 PM [facility] Glucose, Urine Negative Negative mg/dL LAB URINALYSIS - AUTOMATED METHOD 12/14/2024 6:08 PM [facility] Ketones, Urine Negative Negative mg/dL LAB URINALYSIS - AUTOMATED METHOD 12/14/2024 6:08 PM [facility] Urobilinogen, Urine 0.2 0.2 - 1.0 mg/dL LAB URINALYSIS - AUTOMATED METHOD 12/14/2024 6:08 PM [facility] Bilirubin, Urine Negative Negative LAB URINALYSIS - AUTOMATED METHOD 12/14/2024 6:08 PM [facility] Blood, Urine Negative Negative LAB URINALYSIS - AUTOMATED METHOD 12/14/2024 6:08 PM [facility] Urine Urine specimen obtained by clean catch procedure / Unknown Non-blood Collection / Unknown 12/14/2024 5:16 PM EST 12/14/2024 5:38 PM EST us Dwight BOOTHE LAB URINE ORDERABLES Final Resul t [facility] [address] [place] [address], * Inman urine culture tube (12/14/2024 5:16 PM EST) Only the most recent of2 resultswithin the time period is included. Extra Tube Hold for add-ons. 12/14/2024 7:02 PM [facility] Comment:Auto resulted. Urine Urine specimen obtained by clean catch procedure / Unknown Non-blood Collection / Unknown 12/14/2024 5:16 PM EST 12/14/2024 5:38 PM EST us Yotarichardson Block PA LAB URINE ORDERABLES Final Resul t [facility] [address] [place] [address], * CT Head wo Contrast (12/14/2024 4:54 [...] GEMUSE QTc 445 ms GEMUSE P Wave [place] 40 degrees GEMUSE R [place] 6 degrees GEMUSE T [place] 26 degrees GEMUSE ECG Interpretation Normal sinus [...] resultswithin the time period is included. Pathologist [facility] Adenovirus Detection by PCR Not Detected Not Detected LAB MICROBIOLOGY METHOD 12/14/2024 5:56 PM [facility] Influenza A PCR Not Detected Not Detected LAB MICROBIOLOGY METHOD 12/14/2024 5:56 PM [facility] Influenza B PCR Not Detected Not Detected LAB MICROBIOLOGY METHOD 12/14/2024 5:56 PM [facility] Coronavirus 229E Not Detected Not Detected LAB MICROBIOLOGY METHOD 12/14/2024 5:56 PM [facility] Coronavirus HKU1 Not Detected Not Detected LAB MICROBIOLOGY METHOD 12/14/2024 5:56 PM [facility] Coronavirus OC43 Not Detected Not Detected LAB MICROBIOLOGY METHOD 12/14/2024 5:56 PM [facility] Coronavirus NL63 Not Detected Not Detected LAB MICROBIOLOGY METHOD 12/14/2024 5:56 PM [facility] Parainfluenza Virus 1 Not Detected Not Detected LAB MICROBIOLOGY METHOD 12/14/2024 5:56 PM [facility] Parainfluenza Virus 2 Not Detected Not Detected LAB MICROBIOLOGY METHOD 12/14/2024 5:56 PM [facility] Parainfluenza Virus 3 Not Detected Not Detected LAB MICROBIOLOGY METHOD 12/14/2024 5:56 PM [facility] Parainfluenza Virus 4 Not Detected Not Detected LAB MICROBIOLOGY METHOD 12/14/2024 5:56 PM [facility] RSV PCR Not Detected Not Detected LAB MICROBIOLOGY METHOD 12/14/2024 5:56 PM [facility] Human Metapneumovirus A and B Not Detected Not Detected LAB MICROBIOLOGY METHOD 12/14/2024 5:56 PM [facility] Rhinovirus/Entero virus Not Detected Not Detected LAB MICROBIOLOGY METHOD 12/14/2024 5:56 PM [facility] Bordetella pertussis Not Detected Not Detected LAB MICROBIOLOGY METHOD 12/14/2024 5:56 PM [facility] Bordetella parapertussis Not Detected Not Detected LAB MICROBIOLOGY METHOD 12/14/2024 5:56 PM [facility] Mycoplasma pneumo by PCR Not Detected Not Detected LAB MICROBIOLOGY METHOD 12/14/2024 5:56 PM [facility] Chlamydia pneumoniae Not Detected Not Detected LAB MICROBIOLOGY METHOD 12/14/2024 5:56 PM [facility] SARS COV-2 Not Detected Not Detected LAB MICROBIOLOGY METHOD 12/14/2024 5:56 PM [facility] Swab Both anterior nares / Unknown Non-blood Collection / Unknown 12/14/2024 4:28 PM EST 12/14/2024 4:34 PM EST [facility] LAB - 12/14/2024 5:56 PM EST Testing was performed using the [employer]ap[employer] Respiratory Pathogen PCR Assay. All results must [...] - GENERAL ORDER KAILASH Final Result [facility] [address] [place] [address], * (ABNORMAL) CBC auto differential (12/14/2024 12:01 PM EST) Only the most recent of4 resultswithin the time period is included. WBC 8.5 4.8 - 10.8 K/mcL LAB HEMETOLOGY METHOD 12/14/2024 12:29 PM [facility] RBC 4.40 3.80 - 4.80 M/mcL LAB HEMETOLOGY METHOD 12/14/2024 12:29 PM [facility] Hemoglobin 14.1 11.5 - 16.0 g/dL LAB HEMETOLOGY METHOD 12/14/2024 12:29 PM [facility] Hematocrit 42.2 35.0 - 47.0 % LAB HEMETOLOGY METHOD 12/14/2024 12:29 PM [facility] MCV 96.6 79.0 - 98.0 FL LAB HEMETOLOGY METHOD 12/14/2024 12:29 PM [facility] MCH 32.3(H) 27.0 - 32.0 pcg LAB HEMETOLOGY METHOD 12/14/2024 12:29 PM [facility] MCHC 33.4 32.0 - 37.0 g/dL LAB HEMETOLOGY METHOD 12/14/2024 12:29 PM [facility] RDW 13.2 11.0 - 15.0 % LAB HEMETOLOGY METHOD 12/14/2024 12:29 PM [facility] Platelets 329 130 - 400 K/mcL LAB HEMETOLOGY METHOD 12/14/2024 12:29 PM [facility] MPV 9.5 7.0 - 11.0 FL LAB HEMETOLOGY METHOD 12/14/2024 12:29 PM [facility] NRBC 0.0 <1.0 % LAB HEMETOLOGY METHOD 12/14/2024 12:29 PM [facility] NRBC Absolute 0.00 <0.10 K/mcL LAB HEMETOLOGY METHOD 12/14/2024 12:29 PM [facility] Neutrophils Relative 73.7 % LAB HEMETOLOGY METHOD 12/14/2024 12:29 PM [facility] Lymphocytes Relative 17.8 % LAB HEMETOLOGY METHOD 12/14/2024 12:29 PM [facility] Monocytes Relative 6.9 % LAB HEMETOLOGY METHOD 12/14/2024 12:29 PM [facility] Eosinophils Relative 0.8 % LAB HEMETOLOGY METHOD 12/14/2024 12:29 PM [facility] Basophils Relative 0.4 % LAB HEMETOLOGY METHOD 12/14/2024 12:29 PM [facility] Immature Granulocytes Relative 0.4 % LAB HEMETOLOGY METHOD 12/14/2024 12:29 PM [facility] Neutrophils Absolute 6.29 1.50 - 7.00 K/mcL LAB HEMETOLOGY METHOD 12/14/2024 12:29 PM [facility] Lymphocytes Absolute 1.52 1.00 - 5.00 K/mcL LAB HEMETOLOGY METHOD 12/14/2024 12:29 PM [facility] Monocytes Absolute 0.59 0.20 - 1.00 K/mcL LAB HEMETOLOGY METHOD 12/14/2024 12:29 PM [facility] Eosinophils Absolute 0.07 0.00 - 0.50 K/mcL LAB HEMETOLOGY METHOD 12/14/2024 12:29 PM EST [facility] Basophils Absolute 0.03 0.00 - 0.20 K/[facility] LAB HEMETOLOGY METHOD 12/14/2024 12:29 PM EST [facility] Immature Granulocytes Absolute 0.03 0.00 - 0.03 K/[facility] LAB HEMETOLOGY METHOD 12/14/2024 12:29 PM EST [facility] Blood Venous blood specimen / Unknown Venipuncture / Unknown 12/14/2024 12:01 PM EST 12/14/2024 12:24 PM EST Pepe Mar DO LAB BLOOD ORDERABLES Final Result Performing Organization Address City/[facility]/ZIP Co de Phone Number [facility] [address] [place] [address], * Phosphorus (12/14/2024 12:01 PM EST) Phosphorus 3.5 2.5 - 4.5 mg/dL LAB CHEMISTRY METHOD 12/14/2024 4:31 PM EST [facility] Blood Venous blood specimen / Unknown Venipuncture / Unknown 12/14/2024 12:01 PM EST 12/14/2024 12:24 PM EST Dwight BOOTHE LAB BLOOD ORDERABLES Final Resul t [facility] [address] [place] [address], [place] [phone] * Magnesium (12/14/2024 12:01 PM EST) Only the most recent of2 resultswithin the time period is included. Magnesium 2.0 1.9 - 2.6 mg/dL LAB CHEMISTRY METHOD 12/14/2024 12:51 PM EST [facility] Blood Venous blood specimen / Unknown Venipuncture / Unknown 12/14/2024 12:01 PM EST 12/14/2024 12:24 PM EST us Pepe Mar DO LAB BLOOD ORDERABLES Final Result [facility] [address] [place] [address], [place] [phone] * (ABNORMAL) Basic metabolic panel (12/14/2024 12:01 PM EST) Only the most recent of2 resultswithin the time period is included. Sodium 138 133 - 145 mmol/L LAB CHEMISTRY METHOD 12/14/2024 12:59 PM [facility] Potassium 4.5 3.5 - 5.5 mmol/L LAB CHEMISTRY METHOD 12/14/2024 12:59 PM [facility] Chloride 106 96 - 110 mmol/L LAB CHEMISTRY METHOD 12/14/2024 12:59 PM [facility] CO2 28 21 - 32 mmol/L LAB CHEMISTRY METHOD 12/14/2024 12:59 PM [facility] Anion Gap 4 3 - 11 LAB CHEMISTRY METHOD 12/14/2024 12:59 PM [facility] Glucose 119(H) 70 - 100 mg/dL LAB CHEMISTRY METHOD 12/14/2024 12:59 PM [facility] BUN 13 5 - 25 mg/dL LAB CHEMISTRY METHOD 12/14/2024 12:59 PM [facility] Creatinine 0.82 0.50 - 1.10 mg/dL LAB CHEMISTRY METHOD 12/14/2024 12:59 PM [facility] eGFR 84 >=60 mL/min/1. 73m2 LAB CHEMISTRY METHOD 12/14/2024 12:59 PM [facility] Comment:Calculation based on the??Chronic Kidney Disease Epidemiology Collaboration (CKD-EPI) equation refit??without adjustment for race. BUN/Creatinine Ratio 15.9 LAB CHEMISTRY METHOD 12/14/2024 12:59 PM EST [facility] Calcium 9.6 8.5 - 10.5 mg/dL LAB CHEMISTRY METHOD 12/14/2024 12:59 PM EST [facility] Blood Venous blood specimen / Unknown Venipuncture / Unknown 12/14/2024 12:01 PM EST 12/14/2024 12:24 PM EST us Pepe Mar DO LAB BLOOD ORDERABLES Final Result [facility] [address] [place] [address], * ECG-Annotated (12/14/2024) Only the most recent [...] of2 resultswithin the time period is included. [facility] Lyme Ab Negative Negative LAB CHEMISTRY METHOD [...] MD LAB BLOOD ORDERABLES Final Resu lt [facility] [address] [place] [address], * Sedimentation rate, automated (12/05/2024 1:30 PM EST) Only the most recent of2 resultswithin the time period is included. Pathologist [facility] Sed Rate 20 0 - 30 mm/hr LAB HEMETOLOGY METHOD 12/05/2024 1:59 PM EST [facility] Blood Venous blood specimen / Unknown Venipuncture / Unknown 12/05/2024 1:30 PM EST 12/05/2024 1:39 PM EST us Jewel Hernández MD LAB BLOOD ORDERABLES Final Resu lt Performing Organization Address City/[facility]/ZIP Co de Phone Number [facility] [address] [place] [address], [place] [phone] * C-reactive protein (12/05/2024 1:30 PM EST) Pathologist [facility] C-Reactive Protein <0.29 <=0.50 mg/dL LAB CHEMISTRY METHOD 12/05/2024 2:05 PM EST [facility] Blood Venous blood specimen / Unknown Venipuncture / Unknown 12/05/2024 1:30 PM EST 12/05/2024 1:39 PM EST us Jewel Hernández MD LAB BLOOD ORDERABLES Final Resu lt Performing Organization Address [facility] de Phone Number [facility] [address] [place] [address], [place] [phone] * Creatine kinase (12/05/2024 1:30 PM EST) Only the most recent of2 resultswithin the time period is included. Pathologist [facility] Total CK 80 22 - 269 unit/L LAB CHEMISTRY METHOD 12/05/2024 2:05 PM EST [facility] Blood Venous blood specimen / Unknown Venipuncture / Unknown 12/05/2024 1:30 PM EST 12/05/2024 1:39 PM EST us Jewel Hernández MD LAB BLOOD ORDERABLES Final Resu lt Performing Organization Address City/[facility]/ZIP Co de Phone Number [facility] [address] [place] [address], [place] [phone] * EMG one limb (11/18/2024 1:17 PM [...] to the prior neck CTA. Telerad TL ([id number]) -------- FINAL REPORT -------- Dictated By: Dayami Diehl Dictated Date: 11/19/2024 13:40 ET Assigned Physician: Dayami Diehl Reviewed and Electronically Signed By: Dayami Diehl Signed Date: 11/19/2024 13:45 ET Workstation ID: [id number] Transcribed By: Self Edit Transcribed Date: 11/19/2024 [...] to the prior neck CTA. Telerad TL ([id number]) -------- FINAL REPORT -------- Dictated By: Dayami Diehl Dictated Date: 11/19/2024 13:40 ET Assigned Physician: Dayami Diehl Reviewed and Electronically Signed By: Dayami Diehl Signed Date: 11/19/2024 13:45 ET Workstation ID: [id number] Transcribed By: Self Edit Transcribed Date: 11/19/2024 [...] LAB CHEMISTRY METHOD 10/28/2024 4:17 PM EST [facility] Triglycerides 51 0 - 150 mg/dL LAB CHEMISTRY METHOD 10/28/2024 4:17 PM [facility] HDL 111 >=40 mg/dL LAB CHEMISTRY METHOD 10/28/2024 4:17 PM EST [facility] LDL Calculated 75 0 - 100 mg/dL LAB CHEMISTRY METHOD 10/28/2024 4:17 PM EST [facility] VLDL Cholesterol [place] 10.2 mg/dL LAB CHEMISTRY METHOD 10/28/2024 4:17 PM EST [facility] Non HDL Chol. (LDL+VLDL) 85 <145 mg/dL LAB CHEMISTRY METHOD 10/28/2024 4:17 PM [facility] Chol/HDL Ratio 1.8 0.0 - 4.4 LAB CHEMISTRY METHOD 10/28/2024 4:17 PM [facility] Blood Venous blood specimen / Unknown Venipuncture / Unknown 10/28/2024 2:36 PM EST 10/28/2024 3:06 PM EST Araceli BOOTHE LAB BLOOD ORDERABLES Fin al Result [facility] [address] [place] [address], [place] [phone] * CAMILO IFA with titer and pattern (10/28/2024 2:36 PM EST) [facility] ACMILO Negative Negative 10/31/2024 11:26 AM EST [facility] Blood Venous blood specimen / Unknown Venipuncture / Unknown 10/28/2024 2:36 PM EST 10/28/2024 3:07 PM EST Araceli BOOTHE LAB BLOOD ORDERABLES Fin al Result [facility] [address] [place] [address], [place] [phone] * (ABNORMAL) Iron and TIBC (10/28/2024 2:36 PM EST) [facility] Iron 41 40 - 150 mcg/dL LAB CHEMISTRY METHOD 10/28/2024 4:15 PM EST [facility] TIBC 392 250 - 450 mcg/dL LAB CHEMISTRY METHOD 10/28/2024 4:15 PM EST [facility] Iron Saturation 10(L) 15 - 50 % LAB CHEMISTRY METHOD 10/28/2024 4:15 PM EST [facility] Blood Venous blood specimen / Unknown Venipuncture / Unknown 10/28/2024 2:36 PM EST 10/28/2024 3:06 PM EST Araceli BOOTHE LAB BLOOD ORDERABLES Fin al Result [facility] [address] [place] [address], [place] [phone] * Vitamin D 25 hydroxy (10/28/2024 2:36 PM EST) [facility] Vit D, 25-Hydroxy 40.6 30.0 - 80.0 ng/mL LAB CHEMISTRY METHOD 10/28/2024 4:18 PM EST [facility] Blood Venous blood specimen / Unknown Venipuncture / Unknown 10/28/2024 2:36 PM EST 10/28/2024 3:06 PM EST Araceli BOOTHE LAB BLOOD ORDERABLES Fin al Result Performing Organization Address City/[facility]/ZIP Co de Phone Number [facility] [address] [place] [address], [place] [phone] * (ABNORMAL) Rheumatoid factor (10/28/2024 2:36 PM EST) [facility] Rheumatoid Factor 152.0(H) <15.0 I Unit/mL LAB CHEMISTRY METHOD 10/28/2024 4:15 PM EST [facility] Blood Venous blood specimen / Unknown Venipuncture / Unknown 10/28/2024 2:36 PM EST 10/28/2024 3:06 PM EST Araceli BOOTHE LAB BLOOD ORDERABLES Fin al Result Performing Organization Address City/[facility] Co de Phone Number [facility] [address] [place] [address], [place] [phone] * C reactive protein, high sensitivity (10/28/2024 2:36 PM EST) [facility] CRP, High Sensitivity 0.58 mg/L LAB CHEMISTRY METHOD 10/28/2024 4:11 PM EST [facility] Comment: Cardio CRP Relative Risk [...] ORDERABLES Fin al Result Performing Organization Address City/[facility]/ZIP Co de Phone Number [facility] [address] [place] [address], [place] [phone] * Thyroid stimulating hormone (10/28/2024 2:36 PM EST) Only the most recent of2 resultswithin the time period is included. [facility] TSH 0.60 0.40 - 4.00 mcIU/mL LAB CHEMISTRY METHOD 10/28/2024 4:19 PM EST [facility] Blood Venous blood specimen / Unknown Venipuncture / Unknown 10/28/2024 2:36 PM EST 10/28/2024 3:06 PM EST Araceli Augustin [place] LAB BLOOD ORDERABLES Fin al Result Performing Organization Address [facility] Co de Phone Number [facility] [address] [place] [address], [place] [phone] * Hemoglobin A1c (10/28/2024 2:36 PM EST) [facility] Hemoglobin A1C 5.4 <6.5 % LAB CHEMISTRY METHOD 10/28/2024 9:16 PM EST [facility] Mean Bld Glu Estim. 108 mg/dL LAB CHEMISTRY METHOD 10/28/2024 9:16 PM EST [facility] Blood Venous blood specimen / Unknown Venipuncture / Unknown 10/28/2024 2:36 PM EST 10/28/2024 3:10 PM EST Araceli Augustin [place] LAB BLOOD ORDERABLES Fin al Result Performing Organization Address The [facility]/ZIP Co de Phone Number [facility] [address] [place] [address], [place] [phone] * Ferritin (10/28/2024 2:36 PM EST) Ferritin 28 8 - 252 ng/mL LAB CHEMISTRY METHOD 10/28/2024 4:15 PM [facility] Blood Venous blood specimen / Unknown Venipuncture / Unknown 10/28/2024 2:36 PM EST 10/28/2024 3:06 PM EST us Araceli BOOTHE LAB BLOOD ORDERABLES Fin al Result [facility] [address] [place] [address], [place] [phone] * (ABNORMAL) Comprehensive metabolic panel (10/28/2024 2:36 PM EST) Only the most recent of2 resultswithin the time period is included. [facility] Sodium 139 133 - 145 mmol/L LAB CHEMISTRY METHOD 10/28/2024 4:15 PM [facility] Potassium 4.0 3.5 - 5.5 mmol/L LAB CHEMISTRY METHOD 10/28/2024 4:15 PM [facility] Chloride 105 96 - 110 mmol/L LAB CHEMISTRY METHOD 10/28/2024 4:15 PM [facility] CO2 29 21 - 32 mmol/L LAB CHEMISTRY METHOD 10/28/2024 4:15 PM [facility] Anion Gap 5 3 - 11 LAB CHEMISTRY METHOD 10/28/2024 4:15 PM [facility] Glucose 101(H) 70 - 100 mg/dL LAB CHEMISTRY METHOD 10/28/2024 4:15 PM [facility] BUN 12 5 - 25 mg/dL LAB CHEMISTRY METHOD 10/28/2024 4:15 PM [facility] Creatinine 0.87 0.50 - 1.10 mg/dL LAB CHEMISTRY METHOD 10/28/2024 4:15 PM [facility] eGFR 78 >=60 mL/min/1. 73m2 LAB CHEMISTRY METHOD 10/28/2024 4:15 PM [facility] Comment:Calculation based on the??Chronic Kidney Disease Epidemiology Collaboration (CKD-EPI) equation refit??without adjustment for race. BUN/Creatinine Ratio 13.8 LAB CHEMISTRY METHOD 10/28/2024 4:15 PM [facility] Calcium 9.5 8.5 - 10.5 mg/dL LAB CHEMISTRY METHOD 10/28/2024 4:15 PM [facility] AST (SGOT) 13 10 - 42 unit/L LAB CHEMISTRY METHOD 10/28/2024 4:15 PM [facility] ALT (SGPT) 15 10 - 60 unit/L LAB CHEMISTRY METHOD 10/28/2024 4:15 PM [facility] Alkaline Phosphatase 100 42 - 121 unit/L LAB CHEMISTRY METHOD 10/28/2024 4:15 PM [facility] Total Protein 6.9 6.0 - 8.0 g/dL LAB CHEMISTRY METHOD 10/28/2024 4:15 PM [facility] Albumin 3.8 3.2 - 5.0 g/dL LAB CHEMISTRY METHOD 10/28/2024 4:15 PM [facility] Total Bilirubin 0.3 0.0 - 1.4 mg/dL LAB CHEMISTRY METHOD 10/28/2024 4:15 PM [facility] Blood Venous blood specimen / Unknown Venipuncture / Unknown 10/28/2024 2:36 PM EST 10/28/2024 3:06 PM EST us Araceli BOOTHE LAB BLOOD ORDERABLES Fin al Result [facility] [address] [place] [address], * Drug abuse screen 8a panel, urine (10/26/2024 1:47 PM EST) Amphetamine Screen, Ur Negative Negative LAB CHEMISTRY METHOD 10/26/2024 2:22 PM [facility] Comment:Certain OTC medicati ons containing ephedrine, phenylephrine, pseudoephedrine and phenylpropanolamine can cause false positive results. Barbiturate Screen, Ur Negative Negative LAB CHEMISTRY METHOD 10/26/2024 2:22 PM [facility] Benzodiazepine Screen, Ur Negative Negative LAB CHEMISTRY METHOD 10/26/2024 2:22 PM [facility] Cocaine Screen, Ur Negative Negative LAB CHEMISTRY METHOD 10/26/2024 2:22 PM [facility] Opiate Screen, Ur Negative Negative LAB CHEMISTRY METHOD 10/26/2024 2:22 PM [facility] Cannabinoid (THC) Screen, Ur Negative Negative LAB CHEMISTRY METHOD 10/26/2024 2:22 PM [facility] Comment:Specimens from patie nts taking pantoprazole sodium (Protonix) have been shown to produce false positive results. Oxycodone Screen, Ur Negative Negative LAB CHEMISTRY METHOD 10/26/2024 2:22 PM [facility] Fentanyl, Ur Negative Negative LAB CHEMISTRY METHOD 10/26/2024 2:22 PM [facility] Urine Urine specimen obtained [...] ORDERABLES Final Res ult Performing Organization Address [facility] Co de Phone Number [facility] [address] [place] [address], [place] [phone] * Oxycodone, urine (10/26/2024 1:47 PM EST) Oxycodone Screen, Ur Negative Negative LAB CHEMISTRY METHOD 10/26/2024 2:22 PM EST [facility] Comment: Assay cutoff 100 ng/mL [...] ORDERABLES Final Res ult Performing Organization Address [facility] de Phone Number [facility] [address] [place] [address], [place] [phone] * Culture urine (10/26/2024 8:01 AM EST) Pathologist [facility] Culture, Urine >100,000 CFU/mL Mixed urogenital ramone, no uropathogens present. Suggest repeat specimen if clinically indicated. 10/28/2024 7:41 AM EST [facility] Urine Urine specimen obtained by clean catch procedure / Unknown Non-blood Collection / Unknown 10/26/2024 8:01 AM EST 10/26/2024 8:44 AM EST Avis BOOTHE LAB MICROBIOLOGY - GEN ERAL ORDERABLES Final Result Performing Organization Address [facility]/ZIP Co de Phone Number [facility] [address] [place] [address], [place] [phone] * T4, Free (10/26/2024 7:11 AM EST) Free T4 1.09 0.70 - 1.80 ng/dL LAB CHEMISTRY METHOD 10/26/2024 10:03 AM EST [facility] Blood Venous blood specimen / Unknown Venipuncture / Unknown 10/26/2024 7:11 AM EST 10/26/2024 7:20 AM EST us Axel Wiley MD LAB BLOOD ORDERABLES Final Res ult [facility] [address] [place] [address], [place] [phone] * XR Chest 2 Views (10/09/2024 8:03 PM EST) Anatomical Region Laterality Modality Body Radiographic Krystyna ging 10/10/2024 8:47 AM EST Impressions 10/10/2024 8:48 AM EST No acute findings. -------- FINAL REPORT -------- Dictated By: Hever Hutton Dictated Date: 10/10/2024 08:47 ET Assigned Physician: Heevr Hutton Reviewed and Electronically Signed By: Hever Hutton Signed Date: 10/10/2024 08:48 ET Workstation ID: [id number] Transcribed By: Self Edit Transcribed Date: 10/10/2024 [...] Signed Date: 10/10/2024 08:48 ET Workstation ID: [id number] Transcribed By: Self Edit Transcribed Date: 10/10/2024 [...] Signed Date: 09/24/2024 11:48 ET Workstation ID: [id number] Transcribed By: Self Edit Transcribed Date: 09/24/2024 [...] Signed Date: 09/24/2024 11:48 ET Workstation ID: [id number] Transcribed By: Self Edit Transcribed Date: 09/24/2024 [...] PM EDT Narrative 06/05/2023 4:45 PM EDT [facility] Diagnostic Imaging Department [address] [place] [address] Patient: ??MARÍA PHILLIPS ?/Age/Sex: 1965 - 57 - F Unit#: ??[id number] ? Location/Status: ??SPDIMAM/REG CLI ? Mnemonic/Ordering Site: ??DIGSC/SPMAM Ordering Physician: ??JANICE SCHAFER MD Noel Screening Digital - 06/02/23 - 1329 Report Status:Signed EXAM: [facility] Screening Digital EXAM DATE AND TIME: 06/02/2023 1:29 PM HISTORY: ??Screening. Excisional biopsy of the left breast in 2016, pathology benign. COMPARISON: ??02/27/19, 07/26/17, 08/08/16, 07/25/16, 08/28/07 TECHNIQUE: Bilateral digital breast tomosynthesis was performed in the CC and MLO projections. Computer aided detection with [employer] 3D 3.1 was employed. TISSUE DENSITY: a. [...] Procedure Note Dayami Diehl MD - 12/12/2023 [facility] Diagnostic Imaging Department [address] [place] [address] Patient: MARÍA PHILLIPS /Age/Sex: 1965 - 57 - F Unit#: [id number] Location/Status: [facility] CLI Mnemonic/Ordering Site: [facility] Ordering Physician: JANICE SCHAFER MD [facility] Screening Digital - 06/02/23 - 1329 Report Status:Signed EXAM: [facility] Screening Digital EXAM DATE AND TIME: 06/02/2023 1:29 PM HISTORY: Screening. Excisional biopsy of the left breast in 2016,pathology benign. COMPARISON: 02/27/19, 07/26/17, 08/08/16, 07/25/16, 08/28/07 TECHNIQUE: Bilateral digital breast tomosynthesis was performed in the CCand MLO projections. Computer aided detection with [employer] AI 3D 3.1was employed. TISSUE DENSITY: a. [...] Most Recently Relevant to Health Maintenance Insurance [facility] [place] [id number] [facility] Care Teams Bridge Repair Crew Person Relationship Specialty Start Date End Date Araceli Augustin PA [address] [address] PCP - General 11/20/24
--- OUTSIDE RECORDS SUMMARY | 2024-12-24 10:29 | XMS_ITS | Encounter Summary ---
Author Organization [facility] Address [address] [place] [address] Care Team Providers Care Implementation Engineer Name Role Phone Araceli Augustin Primary Care Provider + Reason for Visit * Reason Onset Date Comments lab work 10/25/2024 Encounter Details Date Type Department Care Team ([facility] st Contact Info) Description 10/25/2024 Telephone [facility] [address] [place] [phone] Lee Garcia MD [address] [place] [address] lab work Social History Tobacco [...] the labs drawn. Requesting a call to [phone] * Rebeka Burciaga - 10/25/2024 12:17 PM EST Patients last appt was a telehealth with Dr Garcia on 08/20/24 for thyroid. Patient states she is having the shakes, hand and arms. Her throat aches. She is asking if Dr Garcia can order lab work. Pleasecall if this will be called in. [phone] documented in this encounter Plan of Treatment Upcoming Encounters Date Type Department Care Team (Late st Contact Info) Description 12/26/2024 8:15 AM EST Appointment [facility] Xray [address] [place] [phone] 12/27/2024 3:15 PM EST Office Visit Neurosurgery [facility] [address] [facility] [place] [phone] Peggy Leon MD [address] [place] [address] documented as of this encounter Visit Diagnoses Not on filedocumented in this encounter Care Teams Implementation Engineer Relationship Specialty Start Date End Date Araceli Augustin PA [address] [facility] [address] [place] [phone] PCP - General 11/20/24 documented as of this encounter
--- OUTSIDE RECORDS SUMMARY | 2024-12-24 10:30 | XMS_ITS ---
Author Organization [facility] Address [address] [facility] [address] [place] [address] Care Team Providers Care Parts Counterman Name Role Phone IKER ROBLERO PA-C Primary Care Provider Latonya Ramirez Unavailable [phone] Allergies Allergen (clinical drug ingredient) Drug/Non Drug Allergy documented on EMR Reaction Allergy Type Onset Date Status erythromycin ERYTHROMYCIN Skin Rash Drug Allergy A ctive Results Component Value Reference Range Notes Vitamin [id number] Reviewed date:12/14/2024 02:48:01 PM Interpretation: Performing Lab:[facility], [address] [place] [address], Phone - [phone], Director - MDJodry Notes/Report: Test(s) [id number]-Kty. B1, Whole Blood was developed and its performance characteristics determined by [employer]. It has not been cleared or approved by the Food and Drug Administration. Vitamin B12 930 198-0051 pg/mL Thyroxine (T4) Free, Direct- [id number] Reviewed date:12/14/2024 02:48:28 PM Interpretation: Performing Lab:[facility], Phone - [phone], Director - MDJodry Notes/Report: Test(s) [id number]-Zzo. B1, Whole Blood was developed and its performance characteristics determined by [employer]. It has not been cleared or approved by the Food and Drug Administration. T4,Free(Direct) 1.16 0.82-1.77 ng/dL TSH-[id number] Reviewed date:12/14/2024 02:48:55 PM Interpretation: Performing Lab:[facility], [address] [place] [address], Phone - [phone], Director - MDJodry Notes/Report: Test(s) [id number]-Krw. B1, Whole Blood was developed and its performance characteristics determined by [facility]. It has not been cleared or approved by the Food and Drug Administration. TSH 0.492 0.450-4.500 uIU/mL Triiodothyronine (T3), Free- [id number] Reviewed date:12/14/2024 02:48:08 PM Interpretation: Performing Lab:[facility] [address], Phone - [phone], Director - Elsa Notes/Report: Test(s) 942608-Pjt. B1, Whole Blood was developed and its performance characteristics determined by [facility]. It has not been cleared or approved by the Food and Drug Administration. Triiodothyronine (T3), Free 2.9 2.0-4.4 pg/mL Vitamin D, [id number] Reviewed date:12/14/2024 02:47:53 PM Interpretation: Performing Lab:[facility] [address], Phone - [phone], Director - Elsa Notes/Report: Test(s) [id number]-Hpo. B1, Whole Blood was developed and its performance characteristics determined by [facility]. It has not been cleared or approved by the Food and Drug Administration. Vitamin D, 25-Hydroxy 48.0 30.0-100.0 ng/mL Vitamin D deficiency has been defined by the [place] of Medicine and an Endocrine Society practice guideline as a level of serum 25-OH vitamin D less than 20 ng/mL (1,2). The Endocrine Society went on to further define vitamin D insufficiency as a level between 21 and 29 ng/mL (2). 1. IOM ([place] of Medicine). 2010. Dietary reference intakes for calcium and D. [place]: The National Academies Press. 2. Angelica MF, Leonel [place], Sheeba MCKENNA, et al. Evaluation, treatment, and prevention of vitamin D deficiency: an Endocrine Society clinical practice guideline. JCEM. 2010; 96(7):1911-30. Vitamin B1 (Thiamine), Blood -412142 Reviewed date:12/14/2024 02:48:18 PM Interpretation: Performing Lab:[facility] [address], [place], Phone - [phone], Director - Elsa Notes/Report: Test(s) 135112-Ntv. B1, Whole Blood was developed and its performance characteristics determined by [employer]. It has not been cleared or approved by the Food and Drug Administration. Vit. B1, Whole Blood 131.3 66.5-200.0 nmol/L PDF Report Reviewed date:12/14/2024 02:47:46 PM Interpretation: Performing Lab:[facility], [address], [place], Phone - [phone], Director - Elsa Notes/Report: Test(s) 337188-Kht. B1, Whole Blood was developed and its performance characteristics determined by [employer]. It has not been cleared or approved by the Food and Drug Administration. REASON FOR VISIT TALK HRT Medications Medication SIG (Take, Route, Frequency, Duration) Notes Start Date End Date Status Prometrium 100 MG 1 capsule at bedtime Orally Once a day for 90 days 12/09/2024 Active Turmeric 500 MG as directed Orally Active Gabapentin 100 MG TAKE 1 CAPSULE BY [facility] 3 TIMES A DAY Oral for 30 Days Active Vitamin D3 25 MCG (1000 UT) as directed Orally Active Estradiol 0.0375 MG/24HR 1 patch to skin Transdermal Two times a Week for 90 days 12/09/2024 Active Baclofen 10 MG 1 tablet as needed O rally Once a day Active Escitalopram Oxalate 10 MG Oral for 30 Days Active ZyrTEC 10 MG 1 tablet Orally Once a day Active Vitamin C 500 MG as directed Orally Active Social History Tobacco Use: Social History [...] cigarettes a day do you smoke? 6-10 Vital Signs Height 62 in 12/09/2024 Weight 159 lbs 12/09/2024 BMI 29.08 kg/m2 12/09/2024 Blood pressure systolic 128 mm Hg 12/09/19 25 Blood pressure diastolic 86 mm Hg 025 Temperature 97.4 degrees Fahrenheit 12/09/19 25 Encounters Encounter Location Date Provider Diagnosis Total [address] [place] [address] 12/09/2024 Latonya Lozano Other fatigue R53.83 and Menopausal and female climacteric states N95.1 Assessments Encounter Date Diagnosis (ICD Code) Assessment Notes Treatment Notes Treatment Clinical Notes Section Notes 12/09/2024 Other fatigue (ICD-10 - R53.83) DISCUSSED [...] AND NEEDS TESTOSTERONE THERAPY, WILL REFER TO [facility]. WARNED DALE OF POSSIBLE VAGINAL BLEEDING. CALL IF SHE HAS ANY BLEEDING. Plan Of Treatment Medication Medication Name Sig Start Date Stop Date Notes Prometrium 100 MG 1 capsule at bedtime Orally Once a day for 90 days 12/09/2024 Estradiol 0.0375 MG/24HR 1 patch to skin Transdermal Two times a Week for 90 days 12/09/2024 Treatment Notes Assessment Notes Other fatigue DISCUSSED COMMON CAUSES OF FATIGUE INCLUDING THYROID ISSUES. 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 WORK UP FOR FATIGUE DID NOT INCLUDE THYROID FUNCTION TESTS AND SO THESE WERE ORDERED. APPARENTLY CBC, COMPREHENSIVE METABOLIC PROFILE AND OTHER TESTS WERE ORDERED BY HER PCP. WE WILL CHECK VIT LEVELS TODAY. Menopausal and female climacteric states DISCUSSED MENOPAUSE AND S/SX OF THIS CHANGE. A LOT OF HER SYMPTOMS ARE NOT USUALLY FOUND IN MENOPAUSE BUT SOME ARE. DISCUSSED HRT, ITS BENEFIST AND RISKS. SHE HAS NO CONTRAINDICATIONS TO HRT AND ACCEPTS RISKS. DETAILED INSTRUCTIONS AND RX FOR HRT WERE GIVEN. CALL IF SHE HAS ANY ISSUES. IF SHE IS NOT SIGNIFICANTLY BETTER AND NEEDS TESTOSTERONE THERAPY, WILL REFER TO [facility]. WARNED PAT OF POSSIBLE VAGINAL BLEEDING. CALL IF SHE HAS ANY BLEEDING. Next Appt Details Follow Up: 3 Months, Reason: Progress Notes * MIS OLSONOB:1965 (59 yo F)Acc No.[id number]:12/09/2024 PROGRESS NOTES Patient:?MARCUS OLSON Appointment Provider:?Latonya lopez M.D. :1965???Age:59 Y???Sex:Female D ate:12/09/2024 Address:[address] [place] [address] Pcp:CHANTAL KHAN MD Subjective: * Chief Complaints: * ???TALK HRT * HPI: ???New/Follow-up Patient Consult:? PAT ENTERED MENOPAUSE AT AGE 51.? SHE?HAS HAD MULTIPLE MEDICAL ISSUES INCLUDING JOINT PAINS, INSOMNIA, ANXIETY, DEPRESSION BRAIN FOG AND FATIGUE.? THESE ARE SYMPTOMS THAT MAY BE ATTRIBUTABLE TO ESTROGEN LACK.? SHE HAS BEEN REFERRED TO US BY THE PA OF HER NEUROLOGIST FOR POSSIBLE HRT. SHE HAS OTHER SYMPTOMS THAT ARE NOT DUE TO MENOPAUSE LIKE GENERALIZED BODY PAIN, DIZZINESS, RINGING OF THE EARS, ITCHY SKIN, PAIN ALONG THE JUNCTION OF HER RIBS AND CARTILAGE AND EXTREME FATIGUE. SHE ALSO C/O PAINS ALONG THE PELVIC AREA.? SHE WAS SEEN IN OCT 2024 AND THOROUGH EXAM DID NOT SHOW ANY REASON FOR THESE PAINS. PAT IS HERE MAINLY TO DISCUSS HRT.? SHE HAS NO CONTRAINDICATIONS AND ACCEPTS RISKS OF HRT. * ROS:?general:?no?chest pain.?no?palpitations.?no?headache.?no?cough.?no?shortness of breath.?no?fever.?no?unexplained weight loss.?no?nausea/vomiting.?no?change in bowel movements.?no blood in stool.?no?genitourinary complaints.?no?skin complaints.? 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 Control:?None.?Colonoscopy?08/2023, 1998.?Bone Density:?06/02/23.? * OB History:?Total pregnancies?2.?Total living children?2.?NVD?2.? * Surgical History:?Cholecyste ctomy Bilateral Eye Surgery Left Knee/ACL Repair Hernia Repair 07/2018Left Wrist Scapholunate Instability Surgey Colposcopy 07/07/23, 06/06/22Lipoma Removed Upper Right Abdominal Wall Colonoscopy 08/2023 * Hospitalization/Major Diagno stic Procedure:?2 Vaginal Deliveries See Surgical Hx Diverticulitis * Family History:?Mother: dece ased.?Father: .?Maternal Grand Mother: Thyroid Cancer.? * Social History:?Tobacco Use:?Tobacco Control (Standard)?Tobacco use:?Current [...] a month (2 points) ?Points?2 ?Interpretation?Negative * Medications:?TakingBaclofen 10 MG Tablet 1 tablet as needed Orally Once a day ZyrTEC 10 MG Tablet Chewable 1 tablet Orally Once a day Escitalopram Oxalate 10 MG Tablet Oral Vitamin C 500 MG Capsule as directed Orally Turmeric 500 MG Capsule as directed Orally Vitamin D3 25 MCG (1000 UT) Tablet Chewable as directed Orally Gabapentin 100 MG Capsule TAKE 1 CAPSULE BY MOUTH 3 TIMES A DAY Oral Medication List reviewed and reconciled with the patientTaking Baclofen 10 MG Tablet 1 tablet as needed Orally Once a day Taking ZyrTEC 10 MG Tablet Chewable 1 tablet Orally Once a day Taking Escitalopram Oxalate 10 MG Tablet Oral Taking Vitamin C 500 MG Capsule as directed Orally Taking Turmeric 500 MG Capsule as directed Orally Taking Vitamin D3 25 MCG (1000 UT) Tablet Chewable as directed Orally Taking Gabapentin 100 MG Capsule TAKE 1 CAPSULE BY MOUTH 3 TIMES A DAY Oral Medication List reviewed and reconciled with the patient * Allergies:?ERYTHROMYCIN: Ski n Rash - Allergyno[Allergies Verified] Objective: * Vitals:?Ht: 62 in, Wt:159lbs , BMI:29.08Index, BP:128/86mm Hg, Temp:97.4F. Assessment: * Assessment: 1.?Other fatigue - R53.83??? 2.?Menopausal and female climacteric states - N95.1??? Plan: * Treatment: 2.?Menopausal and female cli macteric states? Start Estradiol Patch Twice Weekly, 0.0375 MG/24HR, 1 patch to skin, Transdermal, Two times a Week, 90 days, 24 Patch, Refills 4;?Start Prometrium Capsule, 100 MG, 1 capsule at bedtime, Orally, Once a day, 90 days, 90 Capsule, Refills 4.?? Notes: DISCUSSED MENOPAUSE AND S/SX OF THIS CHANGE. A LOT OF HER SYMPTOMS ARE NOT USUALLY FOUND IN MENOPAUSE BUT SOME ARE. DISCUSSED HRT, ITS BENEFIST AND RISKS. SHE HAS NO CONTRAINDICATIONS TO HRT AND ACCEPTS RISKS. DETAILED INSTRUCTIONS AND RX FOR HRT WERE GIVEN. CALL IF SHE HAS ANY ISSUES. IF SHE IS NOT SIGNIFICANTLY BETTER AND NEEDS TESTOSTERONE THERAPY, WILL REFER TO [facility]. WARNED PAT OF POSSIBLE VAGINAL BLEEDING. CALL IF SHE HAS ANY BLEEDING.?? * Procedure Codes:? * Follow Up:?3 Months * Images: Billing Information: * Visit Code:? * Procedure Codes:? * Sign off status: Completed true * Appointment Provider:?Latonya Lozano M.D. Date:?12/09/2024 Generated for Renay bear/Hilton/Shaquille on:?12/24/2024 09:02 AM EST History and Physical Notes * HPI (History of Present Illness) Category Sub-Category Detail Notes Category Not es New/Follow-up Patient Consult PAT ENTERED MENOPAUSE AT AGE 51. SHE HAS HAD MULTIPLE MEDICAL ISSUES INCLUDING JOINT PAINS, INSOMNIA, ANXIETY, DEPRESSION BRAIN FOG AND FATIGUE. THESE ARE SYMPTOMS THAT MAY BE ATTRIBUTABLE TO ESTROGEN LACK. SHE HAS BEEN REFERRED TO US BY THE PA OF HER NEUROLOGIST FOR POSSIBLE HRT. SHE HAS OTHER SYMPTOMS THAT ARE NOT DUE TO MENOPAUSE LIKE GENERALIZED BODY PAIN, DIZZINESS, RINGING OF THE EARS, ITCHY SKIN, PAIN ALONG THE JUNCTION OF HER RIBS AND CARTILAGE AND EXTREME FATIGUE. SHE ALSO C/O PAINS ALONG THE PELVIC AREA. SHE WAS SEEN IN OCT 2024 AND THOROUGH EXAM DID NOT SHOW ANY REASON FOR THESE PAINS. PAT IS HERE MAINLY TO DISCUSS HRT. SHE HAS NO CONTRAINDICATIONS AND ACCEPTS RISKS OF HRT.
[2024-12-24 17:45] LABS: MANUAL DIFF FLAG NO
[2024-12-24 17:56] LABS: Basophils Percent Auto 0.3 % (0-2); Eosinophils Absolute Auto 0.3 X10*3/uL (0.0-0.4); Eosinophils Percent Auto 3.3 % (0-4); Hematocrit 42.1 % (37.0-47.0); Hemoglobin 14.1 g/dl (12.0-16.0); Imm Gran Abs Auto 0.02 X10*3/uL (0.00-0.03); Imm Gran Pct Auto 0.2 % (0.0-0.4); Lymphocytes Absolute Auto 1.8 X10*3/uL (1.2-4.9); Lymphocytes Percent Auto 19.4 % (20-40); Mean Corpuscular HGB Conc 33.5 g/dl (31.0-35.0); Mean Corpuscular Volume 95.7 fL (80.0-98.0); Monocytes Absolute Auto 0.7 X10*3/uL (0.1-1.2); Monocytes Percent Auto 7.2 % (2-11); Neutrophils Absolute Auto 6.4 x10*3/uL (2.0-8.3); Neutrophils Percent Auto 69.6 % (45-73); Platelet Count 384 X10*3/uL (160-400); Red Cell Distribution Width 13.1 % (11.0-16.0); White Blood Count 9.2 X10*3/uL (4.8-10.8)
[2024-12-24 18:11] LABS: Alanine Aminotransferase 10 U/L (0-31); Aspartate Amino Transferase 19 U/L (5-31); C Reactive Protein 0.15 mg/dL (< or = 0.50); Estimated Glomerular Filt Rate > 60
[2024-12-24 18:49] LABS: Erythrocyte Sedimentation Rate 7 MM/HR (0-20)
== END 2024-12-24 08:35 | disposition home or self-care (01) ==
LOC: HO.HKASLDS 08:34
PROVIDERS: PCP Family Medicine; Visit Provider Internal Medicine Rheumatology
DX: M05.79 Rheumatoid arthritis with rheumatoid factor of multiple sites without organ or systems involvement (principal); M54.50 Low back pain, unspecified; M89.8X8 Other specified disorders of bone, other site; M53.3 Sacrococcygeal disorders, not elsewhere classified; Z79.899 Other long term (current) drug therapy
CPT/HCPCS: 36415; 82565; 84450; 84460; 85025; 85652; 86140

== ENCOUNTER 2024-12-24 08:34 | Outpatient (AMB) | payer OTHER, SELFPAY ==
--- NOTE | 2024-12-24 08:43 | MHC.OFFVIS ---
Vital Signs 12/24/24 08:44 Height 5 ft 4 in Weight 160 lb 9 oz BMI 27.6 BP 110/72 Blood Pressure Location Rt brachial Position Sitting Pulse 75 Pulse Source Pulse Oximeter Pulse Oximetry (%) 98 Oxygen Delivery Method Room Air Intake Visit Reasons: RA Intake Note: Pt is present today for rheumatoid arthritis follow up. Hide Buyer Required: No Accompanied by: Self / Same As Patient Allergies erythromycin base Allergy (Verified 12/24/24 08:44) Hives etanercept [From Enbrel] Adverse Reaction (Intermediate, Verified 12/24/24 08:44) diverticulitis leflunomide Adverse Reaction (Intermediate, Verified 12/24/24 08:44) diverticulitis prednisone Adverse Reaction (Intermediate, Verified 12/24/24 08:44) Body pain HPI HPI RA: Details: In the last 3 months she has been experiencing chronic lower back buttocks pain with radiation down both legs. It is constant. 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 She had surgery 12/12/2024. She increased her gabapentin dose to 900 mg 3 times a day without benefit. She is having tremors in her upper extremities and lower extremities. She also reports that initially the pain started in the vaginal region where she is now currently experiencing tremors. She is able to get up out of bed without difficulty. Denies morning stiffness. Denies joint swelling. She had surgery to repair scaphoid lunate ligament tear and has had reduced pain in left wrist ever since surgery. Denies fever, weight loss. She reports that her weight fluctuates. Denies dyspnea, pleurisy, oral ulcers, dry mouth. She has dry eye syndrome and last year she had bilateral uveitis treated with topical steroid. She denies urinary symptoms. At this time because of oxycodone use she has been experiencing constipation. She was prescribed stool softener recently. 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 Sacroiliac joint pain Tendonitis of ankle, right Surgical History (Updated 12/24/24 @ 08:54 by Yenifer Daniel CMA) History of surgery Social History Household Members: Spouse and Family Housing: House Alcohol intake: current Alcohol intake frequency: a few times a month Patient Tobacco Use Status: Current everyday Tobacco user Tobacco use type: Cigarette Cigarettes Per Day: 10 Years Smoked: 15 years e-Cigarette/Vaping Use: Never Used service: No Current occupational status: employed 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 Good respiratory effort Skin: No lesions seen MSK: Tender right wrists and 4th right MCP without synovitis noted. Good clinical team lead bilateral. No synovitis. She has tenderness of bilateral forearms and thighs on palpation. She has good range of motion of upper extremities and lower extremities. Power 5/5 upper extremities and lower extremities. Positive straight leg raising test bilateral. No SI joint tenderness. She is tender to palpate lower lumbar spinous process. She also has tenderness in the area of ischial bursae bilateral. She has good flexion of lumbar spine. Assessment & Plan Assessment & Plan (1) Low back pain potentially associated with radiculopathy: Comment: Lower back pain associated with radiculopathy. X-ray from 12/15/2024 reveal mild degenerative changes of lumbar spine but would not explain patient's symptoms. I am concerned she has spinal pathology such as spinal canal stenosis contributing to her symptoms. She will need MRI for further evaluation. She has preserved strength on exam. Low clinical suspicion for idiopathic polymyositis or myopathy contributing to her symptoms. Unclear etiology for tremors in her extremities and pelvis region. She recently has been seeing Neurology. Code(s): M54.50 - Low back pain, unspecified Category: Medical Plan: MRI lumbar spine without contrast ordered Baseline labs ordered After lab results are back I will increase gabapentin to 1200 mg 3 times a day Return to clinic in a month Follow-up with neurology next week in regards to tremors. We discussed that tremors is not a symptom of rheumatological connective tissue disease and needs further evaluation and workup from Neurology. (2) Rheumatoid arthritis with positive rheumatoid factor: Comment: She has 2 tender joints on exam without synovitis. I will continue to monitor clinically and follow up with her in 1 month Dx 10/2020: RF 113. CCP>250 Methotrexate 10/25 -05/2021 -stopped due to LFT elevations 05/2021 - Humira started - ?improvement 08/2022 _ Humira stopped for wrist surgery leflunomide 04/2023-05/2024 DC due to diverticulitis Enbrel 05/2023 DC 06/2023 due to diverticulitis Remicade 04/2024 DC after 1 dose as patient had a positive QuantiFERON test Code(s): M05.9 - Rheumatoid arthritis with rheumatoid factor, unspecified Category: Medical Qualifiers: Rheumatoid arthritis location: multiple sites Qualified Code(s): M05.79 - Rheumatoid arthritis with rheumatoid factor of multiple sites without organ or systems involvement Plan: Return to clinic 1 month Orders: Orders Aspartate Amino Transferase Today M05.79 - Rheumatoid arthritis with rheumatoid factor of multiple sites without organ or systems involvement Creatinine Today M05.79 - Rheumatoid arthritis with rheumatoid factor of multiple sites without organ or systems involvement Erythrocyte Sedimentation Rate Today Z79.899 - Other intermediate card tender (current) drug therapy C Reactive Protein Today Z79.899 - Other intermediate card tender (current) drug therapy MR lumbar spine wo con Today M54.50 - Low back pain, unspecified Alanine Aminotransferase Today M05.79 - Rheumatoid arthritis with rheumatoid factor of multiple sites without organ or systems involvement Complete Blood Count Auto Diff Today M05.79 - Rheumatoid arthritis with rheumatoid factor of multiple sites without organ or systems involvement Coding Level of Care Code Est Pt Level 5 (65069) Complex EM visit Add On G2211 Diagnoses Low back pain potentially associated with radiculopathy M54.50 Rheumatoid arthritis involving multiple sites with positive rheumatoid factor M05.79 Rheumatoid arthritis location: multiple sites
[2024-12-24 08:44] VITALS: BP 110/72; PULSE 75; O2SAT 98; BMI 27.6
--- OUTSIDE RECORDS SUMMARY | 2024-12-24 08:57 | XMS_ITS ---
Author Organization [facility] Address [address] [place] [address] Care Team Providers Care Shuttlecock Assembler Name Role Phone IKER ROBLERO PA-C Primary Care Provider Latonya Ramirez Unavailable [phone] Allergies Allergen (clinical drug ingredient) Drug/Non Drug [...] 6-10 Encounters Encounter Location Date Provider Diagnosis [facility] [address] [address] 12/05/2024 Latonya Lozano Plan Of Treatment No Information Progress Notes * MIS OLSONOB:1965 (59 yo F)Acc No.[id number]:12/05/2024 PROGRESS NOTES Patient:?MARCUS OLSON Appointment Provider:?Latonya lopez M.D. :1965???Age:59 Y???Sex:Female D ate:12/05/2024 Address:[address] [place] [address] Pcp:IKER ROBLERO PA-C Subjective: * Chief Complaints: * ???1. TALK HRT. * Medical History:?Anxiety dis order, unspecified, Other specified irregular menstruation, Other specified [...] on cytologic smear of cervix (ASC-US). 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 Control:?None.?Colonoscopy?08/2023, 1997.?Bone Density:?06/02/23.? * OB History:?Total pregnancies?2.?Total living children?2.?NVD?2.? * Social History:?Tobacco Use:?Tobacco Control (Standard)?Tobacco use:?Current smoker ?How often do you smoke cigarettes??Every day ?How many cigarettes a day do you smoke??6-10 ???Sexual History:?Sexual History?Had sex in the past 12 months (vaginal, oral, or anal)?: No.?Details of Sexual History?Are you sexually active??No ???Drugs/Alcohol:?Drugs?Have you used drugs other than those for medical reasons in the past 12 months??No ???Miscellaneous:?Children: yes, 2. ?Domestic violence: no. ?Home smoke detector use: yes. ?Living with: spouse. ?Marital status: . ?Natural support system: yes. ?Occupation: Works full-time. ?Sexual abuse: no. ?Sexually active: no, monogamous relationship. ?Verbal abuse: no. ???Drug/Alcohol:?AUDIT-C (Standard)?Did you have a drink containing alcohol in the past year??Yes ?How often did you have six or more drinks on one occasion in the past year??Never (0 point) ?How many drinks did you have on a typical day when you were drinking in the past year??1 or 2 drinks (0 point) ?How often did you have a drink containing alcohol in the past year??2 to 4 times a month (2 points) ?Points?2 ?Interpretation?Negative * Allergies:?ERYTHROMYCIN: Ski n Rash - Allergy. Objective: * Vitals:? Assessment: Plan: * Treatment: * Images: Billing Information: * Visit Code:? * Procedure Codes:? * Electronic signature of Pato Lozano MD on 12/24/2024 at 08:57 AM EST Sign off status: Pending * Appointment Provider:?Latonya Lozano M.D. Date:?12/05/2024 Generated for Renay bear/Hilton/Shaquille on:?12/24/2024 08:57 AM EST
--- OUTSIDE RECORDS SUMMARY | 2024-12-24 08:58 | XMS_ITS ---
Author Organization [facility] Address [address] [place] [address] Care Team Providers Care Sales And Business Development Manager Name Role Phone IKER ROBLERO Unavailable [phone] REASON FOR VISIT Callback Encounters Encounter Location Date Provider Diagnosis [place] [address] [address] 12/16/2024 IKER ROBLERO PLAN OF TREATMENT No Information Progress Notes * David OLSONOB:1965 (59 yo F)Acc No.[id number]:12/16/2024 Patient:??María OLSON :1965?Age:59 Y?Sex:Fe male Address:[address], [place] [address] * true * Date:??
--- OUTSIDE RECORDS SUMMARY | 2024-12-24 08:58 | XMS_ITS ---
Author Name [facility] Organization Unknown History of Medication Use Medication Directions Dispensed Refills Start Date End Date Stat us No medication inform ation recorded active Problems Problem Status Onset Date Problem Type Date of Resoluti on Source Strain of muscle and tendon of unspecified wall of thorax, initial encounter active 2023-11-17 [address] [facility]
--- OUTSIDE RECORDS SUMMARY | 2024-12-24 08:58 | XMS_ITS ---
Author Organization [facility] Address [address] [facility] [address] [place] [address] Care Team Providers Care Wastewater Treatment Plant Attendant Name Role Phone LINDA KHAN Primary Care Provider [phone] Hugo Plata Unavailable [phone] REASON FOR VISIT Excruciating pain Encounters Encounter Location Date Provider Diagnosis [facility] [address] [facility] [address] [place] [address] 10/21/2024 Hugo Plata Rib pain on right side R07.81 Assessments Encounter Date Diagnosis (ICD Code) Assessment Notes Treatment Notes Treatment Clinical Notes Section Notes 10/21/2024 Rib pain on right side (ICD-10 - R07.81) Plan Of Treatment No Information Progress Notes * MIS OLSONOB:1965 (59 yo F)Acc No.[id number]:10/21/2024 Patient:?MARCUS OLSON :1965???Age:59 Y???Sex:Female Address:[address] [place] [address] Subjective: * Chief Complaints: * ???Excruciating pain * Medical History:? * Surgical History:? * Hospitalization/Major Diagno stic Procedure:? * Medications:? Objective: * Vitals:? * Physical Examination:? Assessment: * Assessment: 1.?Rib pain on right side - R07.81 (Primary)??? Plan: * Treatment: * Procedure Codes:? * true * Date:? Generated for Kareeni chema/Hilton/eTransmitting on:?12/24/2024 08:58 AM EST
--- OUTSIDE RECORDS SUMMARY | 2024-12-24 08:58 | XMS_ITS ---
Author Organization [facility] Address [address] [place] [address] Care Team Providers Care Delivery Director Name Role Phone IKER ROBLERO Unavailable [phone] REASON FOR VISIT Buttock pain/pins and needles Encounters Encounter Location Date Provider Diagnosis [address] [address] 12/18/2024 IKER ROBLERO PLAN OF TREATMENT No Information Progress Notes * David OLSONOB:1965 (59 yo F)Acc No.[id number]:12/18/2024 Patient:??María OLSON :1965?Age:59 Y?Sex:Fe male Address:[address] [place] [address] * true * Date:??
--- OUTSIDE RECORDS SUMMARY | 2024-12-24 08:58 | XMS_ITS | Encounter Summary ---
Author Organization [facility] Address [address] [place] [address] Care Team Providers Care Size Marker Name Role Phone Araceli Augustin Primary Care Provider + Reason for Visit * Reason Onset Date Comments Prior Authorization 11/20/2024 Encounter Details Date Type Department Care Team (Late st Contact Info) Description 11/20/2024 Telephone Gastroenterology - [place] [address] [place] [address] Rajan Sanders PA [address] [place], [place] [phone] Prior Authorization Social History Tobacco Use Types Packs/Day Years Used Date Smoking Tobacco: Every Day Cigarettes Last attempted to quit: 07/15/2018 Smokeless Tobacco: Never Alcohol Use Standard Drinks/Week Comments Not Currently 0 (1 standard drink = 0.6 oz pur e alcohol) Comments No Sex and Gender Information Value Date Recorded Sex Assigned at Female 10/26/2024 8:32 AM EST Legal Sex Female 3:55 AM EST Gender Identity Female 10/26/2024 8:32 AM EST Sexual Orientation Not on file documented as of this encounter Functional Status * Are you deaf or do you have serious difficulty hearing? Answer Date of Assessment Author No 10/26/2024 8:04 AM EST Monty Sharma RN * Are you blind or do you have serious difficulty seeing, even when wearing glasses? Answer Date of Assessment Author No 10/26/2024 8:04 AM Monty Rivas RN * Do you have serious difficulty walking or climbing stairs? Answer Date of Assessment Author No 10/26/2024 8:04 AM Monty Rivas RN * Do you have serious difficulty dressing or bathing? Answer Date of Assessment Author No 10/26/2024 8:04 AM Monty Rivas RN * Because of a physical, mental, or emotional condition, do you have serious difficulty doing errandsalone such as visiting the doctor? Answer Date of Assessment Author No 10/26/2024 8:04 AM Monty Rivas RN documented as of this encounter Mental Status * Because of a physical, mental, or emotional condition, do you have serious difficulty concentrating, remembering, or making decisions? (5 years old or older) Answer Entry Date Author No 10/26/2024 8:04 AM Monyt Rivas RN documented in this encounter Progress Notes * Nichelle Pastrana MA - 11/25/2024 9:57 AM EST The suspension was changed to tabs. * Toshia Perez - 11/20/2024 10:12 AM EST Prior Authorization for Medication-do not complete and send this encounter unless you have the fax from the pharmacy. Is this a Cover My Meds request: YES [id number] Name of Medication sucralfate (CARAFATE) Dose of Medication 100 mg/mL suspension What is the RX # from the faxed refill? How does patient take this med? Take 10 mL (1 g total) by mouth 4 (four) times a day (with meals and nightly). Take 1 hour before meals and at bedtime What Pharmacy did the fax come from: [facility] Pharmacy fax #: [phone]. documented in this encounter Plan of Treatment Upcoming Encounters Date Type Department Care Team (Late st Contact Info) Description 12/26/2024 8:15 AM EST Appointment [facility] Xray [address] [place] [phone] 12/27/2024 3:15 PM EST Office Visit Neurosurgery [facility] [address] [facility] [address] [place] [phone] Peggy Leon MD [address] [place] [address] documented as of this encounter Visit Diagnoses Not on filedocumented in this encounter Additional Health Concerns Infection Onset Date Last Indicated Resolved Time Respiratory Rule-Out 12/05/2024 12/05/2024 025 4:51 PM EST Respiratory Rule-Out 12/14/2024 12/14/2024 025 5:56 PM EST COVID-19 Rule-Out 12/14/2024 12/14/2024 12/14/2024 5:56 PM EST documented as of this encounter Care Teams Size Marker Relationship Specialty Start Date End Date Araceli Augustin PA [address] [facility] [address] [place] [phone] PCP - General 11/20/24 documented as of this encounter
--- OUTSIDE RECORDS SUMMARY | 2024-12-24 08:59 | XMS_ITS | Data Portability ---
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 Plan of Treatment Reminders Order Date Submit Date Provider Last Modified By Organization Details Last Modified Time Details Appointments None recorded. Lab rapid strep group A, throat 2022 023 [email or web address] [facility], [address] [place] [address], [address], 3 19:09:54 streptococc us group A, culture, throat [email or web address] [facility], [address] [place] [address], [place], [address], 3 19:09:54 Referral emergency medicine referral - left lower facial weakness and numbness x 5 days [email or web address] Emergency Department, [address] [place], [address], 4 18:35:48 Procedures None recorded. Surgeries None recorded. Imaging None recorded. Medication Orders prednisone 20 mg tablet 2022 023 [email or web address] 5 [id number], [address] [place], [address], 4 16:05:23 benzonatate 200 mg capsule 2022 023 [email or web address] 5 [id number], [address] [place], [address], 16:05:13 Patient TargetsNo targets recorded. Patient Instructions Encounter Date Encounter Id Patient Instructions Last Modified By Organization Details Last Modified Time 12/17/2022 [id number] sore throat: car e instructions [email or web address] Not available 12/17/2022 19:09:54 Use over the counter medications for your sore throat. Basic lozenges (cough drops) or lozenges with an anesthetic (numbing agent) can be used as needed for quick results; look for the active ingredient, benzocaine, for numbing lozenges (like Cepacol Extra or Chloraseptic Max). Gargling with warm salt water can also relieve pain. Dissolve 1/4 to 1/2 teaspoon in 8-ounces of warm water; gargle and spit salt solution every hour, as needed. Sore throat pain can also be reduced by taking regular doses of acetaminophen (tylenol) or ibuprofen (Advil); if you are given a prescription of PREDNISONE, you may continue to take acetaminophen, but do not take ibuprofen or naprosyn. While this isn't quick, it can significantly reduce pain within an hour after taking. Please switch toothbrush after being on antibiotic for 24 hrs. You should follow-up with your PCP in days, or at any time if your condition does not improve or worsens. Any acute change should prompt a visit to the nearest Emergency Department. . Not available 12/17/2022 19:10:37 Sinusitis is an infection of the lining of the sinus cavities in your head. Sinusitis often follows a cold. It causes pain and pressure in your head and face. In most cases, sinusitis gets better on its own in 1 to 2 weeks. But some mild symptoms may last for several weeks. Sometimes antibiotics are needed. if you are having problems. It's also a good idea to know your test results and keep a list of the medicines you take. How can you care for yourself at home? Take an [id number] pain medicine. Avoid Ibuprofen, Aleve and Aspirin if . If the doctor prescribed antibiotics, take them as directed. Do not stop taking them just because you feel better. You need to take the full course of antibiotics. Be careful when taking fsws-udi-yngtcpw cold or influenza (flu) medicines and Tylenol at the same time. Many of these medicines have acetaminophen, which is Tylenol. Read the labels to make sure that you are not taking more than the recommended dose. Too much acetaminophen (Tylenol) can be harmful. Breathe warm, moist air from a steamy shower, a hot bath, or a sink filled with hot water. Avoid cold, dry air. Using a humidifier in your home may help. Follow the directions for cleaning the machine. Use saline (saltwater) nasal washes. This can help keep your nasal passages open and wash out mucus and bacteria. You can buy saline nose drops at a grocery store or drugstore. Or you can make your own at home by adding 1 teaspoon (5 millilitres) of salt and 1 teaspoon (5 millilitres) of baking soda to 2 cups (500 mL) of distilled water. If you make your own, fill a bulb syringe with the solution, insert the tip into your nostril, and squeeze gently. Blow your nose. Put a hot, wet towel or a warm gel pack on your face 3 or 4 times a day for 5 to 10 minutes each time. Try a decongestant nasal spray like oxymetazoline (Drixoral). Do not use it for more than 3 days in a row. Using it for more than 3 days can make your congestion worse. Not available 12/17/2022 19:07:18 05/19/2024 [id number] head or face [email or web address] n: care instructions [email or web address] Not available 05/19/2024 16:41:57 Reason for Referral Emergency Medicine Referral for Numbness of face left lower facial weakness and numbness x 5 days Referring Physician: Juan F Noe, Urgent Care, Encounter Date: 05/19/2024 Results Created Date Observation Date Name Description Value Unit Range Abnormal Flag Note LastModifiedBy Organization Detail LastModifiedTime 12/17/19 23 12/21/2022 BETA STREP GP A CULTU RE beta strep gp A culture NEGATI VE Refer ence Range : Negat aashish Not Available [facility] ([facility]) [address] [facility], [place], [address], 12/21/2022 06:07:48 12/17/1912/17/2022 rapid strep group A, throa t Unknown Analyte Normal = Negati ve Not Available [facility] [address] [place], [address], 12/17/2022 18:34:11 12/17/1912/17/2022 rapid strep group A, throa t Unknown Analyte negati ve Not Available [facility] [address] [place] [address], [address], 12/17/2022 18:34:11 Result Notes None recorded. Problems Name Problem SNOMED Code Status Onset Date Resolution Date Notes Provider Name and Address Organization Details Recorded Time Rheumatoid arthritis 64392066 Active Nella Ayla null, PA - [facility] 4 16:05:45 Numbness of face 732490021 Active 2023 Juan F Noe, DO [address] , [place], [address] , [place] - [facility] 4 16:17:43 Anxiety 49584420 Active 2022 ANNETTE LUPICA null, PA - [facility] 3 18:38:17 Hyperthyroidis m with Rock disease 79088800 Active 2022 ANNETTE LUPICA null, PA - [facility] 3 18:38:27 Problem Notes None recorded. Procedures Surgical History Date Name Laterality Status Provider Name and Address Organization Details Recorded Time 2 procedure on wrist completed ANNETTE LUPICA PA - [facility] 12/17/2022 18:39:38 Imaging Results None recorded. Procedure Notes None recorded. Medical Equipment None Reported. Allergies Allergen ID Allergen Name Allergen Category Reaction Reaction Severity Criticality Documentation Date Start Date Code Code System Note Provider Name and Address Organization Details Recorded Time 757398 erythromy libby medicatio n hives Not available Not available 12/17/2022 4053 RxNorm ANNETTE LUPICA null, PA - [facility] 3 18:36:19 Medications Name Sig Start Date Stop Date Status Note LastModified by Organization Details LastModified Time celecoxib 200 mg capsule TAKE 1 CAPSULE BY MOUTH 2 TIMES A DAY 12/17 completed Not Available Not Available Not Available ibuprofen 800 mg tablet 05/19 completed Not Available Not Available Not Available benzonatate 200 mg capsule Take 1 capsule 3 times a day by oral route as needed for 7 days. 05/19 completed Not Available Not Available Not Available prednisone 20 mg tablet Take 2 tablets every day by oral route in the morning for 3 days. 05/19 completed Not Available Not Available Not Available penicillin V potassium 500 mg tablet TAKE 1 TABLET BY MOUTH THREE TIMES A DAY FOR 10 DAYS 12/17 completed Not Available Not Available Not Available omeprazole 40 mg capsule,del ayed release PLEASE SEE ATTACHED FOR DETAILED DIRECTION S 12/17 completed Not Available Not Available Not Available tramadol 50 mg tablet TAKE 1 TABLET BY MOUTH EVERY 6 HOURS NEEDED FOR PAIN 12/17 completed Not Available Not Available Not Available ketorolac 10 mg tablet TAKE 1 TABLET BY MOUTH EVERY 6 HOURS FOR 5 DAYS NEEDED FOR PAIN 12/17 completed Not Available Not Available Not Available oxycodone-a cetaminophe n 5 mg-325 mg tablet TAKE 1 TABLET BY MOUTH EVERY 6 HOURS 12/17 completed Not Available Not Available Not Available dexamethaso ne 1 mg tablet TAKE 1 TABS BY MOUTH AT 11PM 12/17 completed Not Available Not Available Not Available venlafaxine 37.5 mg tablet TAKE 1 TABLET BY MOUTH EVERY DAY 05/19 completed Not Available Not Available Not Available neomycin-po lymyxin-dex ameth 3.5 mg/mL-10,00 0 unit/mL-0.1 % eye drops PUT 1 DROP INTO BOTH EYES 4 TIMES A DAY X 1 WEEK 12/17 completed Not Available Not Available Not Available docusate sodium 100 mg capsule TAKE 1 CAPSULE BY MOUTH TWICE A DAY 12/17 completed Not Available Not Available Not Available gabapentin 300 mg capsule TAKE 1 CAPSULE BY MOUTH 3 TIMES A DAY 12/17 completed Not Available Not Available Not Available diclofenac sodium 50 mg tablet,jaya yed release TAKE 1 TABLET BY MOUTH 3 TIMES A DAY 12/17 completed Not Available Not Available Not Available gabapentin 100 mg capsule TAKE 1 CAPSULE BY MOUTH THREE TIMES A DAY 12/17 completed Not Available Not Available Not Available methylpredn isolone 4 mg tablets in a dose pack TAKE 6 TABLETS ON DAY 1 DIRECTED ON PACKAGE AND DECREASE BY 1 TAB EACH DAY FOR A TOTAL OF 6 DAYS 12/17 completed Not Available Not Available Not Available celecoxib 100 mg capsule TAKE 1 CAPSULE BY MOUTH TWICE A DAY NEEDED 12/17 completed Not Available Not Available Not Available oxycodone 5 mg tablet TAKE 1 TABLET BY MOUTH EVERY 4 HOURS NEEDED FOR PAIN DIRECTED (DO NOT DRIVE WHILE ON THIS MEDICATIO N) 12/17 completed Not Available Not Available Not Available tizanidine 2 mg capsule TAKE 1 CAP BY MOUTH 3 TIMES A DAY NEEDED MUSCLE SPASM MAY CAUSE DROWSINES S. 12/17 completed Not Available Not Available Not Available Zyrtec active Not Available Not Availa ble Not Available diflupredna te 0.05 % eye drops INSTILL 1 DROP INTO RIGHT EYE 4 TIMES A DAY 12/17 completed Not Available Not Available Not Available Gelsyn-3 16.8 mg/2 mL intra-artic ular syringe 12/17 completed Not Available Not Available Not Available Humira(CF) Pen 40 mg/0.4 mL subcutaneou s kit 12/17 completed Not Available Not Available Not Available Flowflex COVID-19 Antigen Home Test kit USE DIRECTED 12/17 completed Not Available Not Available Not Available Vitals Date Recorded Body height Body mass index (BMI) Body weight Pain severity - 0-10 verbal numeric rating [Score] - Reported Body temperature Respiratory rate Heart rate Oxygen saturation Oxygen saturation in Arterial blood by Pulse oximetry Systolic blood pressure Diastolic blood pressure Provider Name and Address Organization Details Last Updated DateTime 4 162.56 cm 27.5 kg/m2 91498.7 8 g 5 97.9 [degF] 18 /min 89 /min 98 % 98 % 121 mm[Hg] 82 mm[Hg] Nella Aguila PA - [facility] 4 16:07:24 Date Recorded Body height Body mass index (BMI) Body weight Body temperature Respiratory rate Oxygen saturation Oxygen saturation in Arterial blood by Pulse oximetry Heart rate Systolic blood pressure Diastolic blood pressure Provider Name and Address Organization Details Last Updated DateTime 3 162.56 cm 27.5 kg/m2 85817.7 8 g 97 [degF] 16 /min 98 % 98 % 70 /min 138 mm[Hg] 89 mm[Hg] ANNETTE RAYMOND PA - [facility] 3 18:41:54 Social History Question Answer Notes LastModified by Organizat ion Details LastModified Time Tobacco Smoking Status Current Every Day Smoker ANNETTE RAYMOND null, PA - [facility] 12/17/2022 18:39:13 What Is Your Level Of Alcohol Consumption? Occasional Information not available 05/19/2024 Have You Had Direct Contact, Or Contact During Intimacy, With Monkeypox Rash, Scabs, Or Body Fluids From A Person With Monkeypox? No Information not available 05/19/2024 What Was The Date Of Your Most Recent Tobacco Screening? 05/19/2024 Information not available 05/19/2024 How Much Tobacco Do You Smoke? 0.5 PPD [email or web address] Information not available 12/17/2022 Do You Use Any Illicit Or Recreational Drugs? No Information not available 12/17/2022 Have You Recently Traveled Abroad? No [email or web address] Information not available 12/17/2022 Do You Or Have You Ever Used Any Other Forms Of Tobacco Or Nicotine? No Information not available 12/17/2022 Sex: Unknown Functional Status None recorded. Mental Status None recorded. Family History Relationship Description Onset Age of this Age Resolved Age Notes LastModified by Organization Details LastModified Time Unspecified Relation Disorder of thyroid gland Not available 2022 18:38:50 Medical History No medical history recorded. Gynecological History Statement/Question Response Is there any chance of ? No LMP Unknown Obstetrics History GPAL:G 0 P 0 0 0 0 Immunizations Vaccine Type Date Status Note Provider Nam e and Address Organization Details Recorded Time Influenza, recombinant, quadrivalent, PF 0 completed Nella Ayla null, PA - [facility] 05/19/2024 16:04:27 Influenza, MDCK, quadrivalent, preservative 1 completed Nella Ayla null, PA - [facility] 05/19/2024 16:04:27 COVID-19, mRNA, LNP-S, PF, 30 mcg/0.3 mL dose 1 completed Nella Ayla null, PA - [facility] 05/19/2024 16:04:27 COVID-19, mRNA, LNP-S, PF, 30 mcg/0.3 mL dose 1 completed Nella Ayla null, PA - [facility] 05/19/2024 16:04:27 COVID-19, mRNA, LNP-S, PF, 30 mcg/0.3 mL dose 1 completed Nella Ayla null, PA - [facility] 05/19/2024 16:04:27 COVID-19, mRNA, LNP-S, PF, 30 mcg/0.3 mL dose 1 completed Nella Ayla null, PA - [facility] 05/19/2024 16:04:27 COVID-19, mRNA, LNP-S, PF, 30 mcg/0.3 mL dose, trey-sucrose 2 completed Nella Ayla null, PA - [facility] 05/19/2024 16:04:27 Tdap 9 completed Nella Ayla null, PA - [facility] 05/19/2024 16:04:27 Tdap 5 completed Nella Ayla null, PA - [facility] 05/19/2024 16:04:27 Influenza, split virus, trivalent, preservative 2 completed Nella Ayla null, PA - [facility] 05/19/2024 16:04:27 Influenza, split virus, trivalent, preservative 0 completed Nella Ayla null, PA - [facility] 05/19/2024 16:04:27 Hep B, adult 2 completed Nella Ayla null, PA - [facility] 05/19/2024 16:04:27 Hep B, adult 2 completed Nella Ayla null, PA - [facility] 05/19/2024 16:04:27 Past Encounters Encounter ID Performer Location Encounter Start Date Encounter Closed Date Diagnosis/Indication Diagnosis SNOMED-CT Code Diagnosis ICD10 Code Diagnosis Note [id number] [place] [address] [place] [address] 12/17/2022 17:31:11 12/17/2022 19:17:28 Sore throat 849282782 J02.9 [id number] [place] [address] [address] 05/19/2024 15:59:19 05/19/2024 16:21:39 Numbness of face 114514382 R20.0 ER now !!! Health Concerns Section Related Observation LastModified by Organization Detai ls LastModified Time None Recorded Concern Status LastModified by Organization Details LastModified Time None Recorded Advance Directives Directive None Recorded Payers Encounter Date Sequence Insurance Name Policy Number Policy Chacko Covered Member ID Chacko Member ID Guarantor Name 12/17/2022 1 [employer] - [place] - DOS ON OR BEFORE 11/05/2023 - [facility] (PPO) María Phillips [id number] María Phillips 05/19/2024 1 [facility] - [place] - DOS PRIOR TO 2024 (PPO) María Phillips [id number] María Phillips Notes Date Note Type Note Provider Name and Address Organization Details Recorded Time 3 text/html Sore throatReported bypatient.Source of patient informationInformation obtained from patient; Patient arrived at Urgent Care ambulatory; learning styles: auditory Location:throat Severity:mild Quality:sharp; burning Onset/Timin days Associated Symptoms:no sputum production; no shortness of breath; no wheezing; no vomiting; no nausea;sore throat;hoarseness;coughing; sinus pain/ congestion Context:no foreign travel; non-smoker;sick contact Modifying Factors:exposed to Strep non household Narendra Diaz NP [address] [place], [address], PA - [facility] 12/17/2022 19:11:14 4 text/html a couple of weeks. twitching in face. x5 days having facial pain. pain level is 5/10. feels slight numbness on left side of mouth. patient also notices lower facial weakness as well. no chest pain. has slight head ache Juan F Neo DO [address] [place], [address], PA - [facility] 05/19/2024 16:42:19 OBGyn Episode No OBEpisode recorded.
--- OUTSIDE RECORDS SUMMARY | 2024-12-24 08:59 | XMS_ITS | Encounter Summary ---
Author Organization [facility] Address [address] [place] [address] Care Team Providers Care Returns Clerk Name Role Phone Araceli Augustin Primary Care Provider + Reason for Visit * Reason Comments Extremity Weakness BILATERAL LEG NUMBNE SS X4 DAYS Encounter Details Date Type Department Care Team (Late st Contact Info) Description 12/14/2024 2:01 PM EST - 12/14/2024 9:20 PM EST Emergency [facility] Emergency [address] [place] [address] Acute bilateral low back pain, unspecified whether sciatica present (Primary Dx); Tingling in extremities Discharge Disposition: Home or Self Care Social History Tobacco Use Types Packs/Day Years [...] on file documented as of this encounter Last Filed Vital Signs Vital Sign Reading Time Taken Comments Blood Pressure 123/74 12/14/2024 6:52 PM EST Pulse 63 12/14/2024 6:52 PM EST Temperature 36.6 ??C (97.9 ??F) 12/14/2024 6:52 PM ES T Respiratory Rate 19 12/14/2024 6:52 PM EST Oxygen Saturation 96% 12/14/2024 6:52 PM EST Inhaled Oxygen Concentration - - Weight 72.6 kg (160 lb) 12/14/2024 10:17 AM EST Height 162.6 cm (5' 4 ) 12/14/2024 10:17 AM EST Body Mass Index 27.46 12/14/2024 10:17 AM EST documented in this encounter Functional Status * Are you deaf or do you have serious difficulty hearing? Answer Date of Assessment Author No 12/14/2024 7:39 PM Tracee Cassidy RN * Are you blind or do you have serious difficulty seeing, even when wearing glasses? Answer Date of Assessment Author No 12/14/2024 7:39 PM Tracee Cassidy RN * Do you have serious difficulty walking or climbing stairs? Answer Date of Assessment Author No 12/14/2024 7:39 PM Tracee Cassidy RN * Do you have serious difficulty dressing or bathing? Answer Date of Assessment Author No 12/14/2024 7:39 PM Tracee Cassidy RN * Because of a physical, mental, or emotional condition, do you have serious difficulty doing errandsalone such as visiting the doctor? Answer Date of Assessment Author No 12/14/2024 7:39 PM Tracee Cassidy RN documented as of this encounter Mental Status * Because of a physical, mental, or emotional condition, do you have serious difficulty concentrating, remembering, or making decisions? (5 years old or older) Answer Entry Date Author No 12/14/2024 7:39 PM Tracee Cassidy RN documented in this encounter Discharge Instructions * Discharge Instructions* TL Brooks - 12/14/2024 9:06 PM EST You were seen in the emergency room today for low back pain, extremity tingling and sensation of extremity weakness. Your lab work looks good, your viral panel was negative, your CT scan of your headdid not show any concerning findings. Your physical exam was reassuring, your lumbar spine x-ray did not show any acute concerning findings on our preliminary read. It does appear like you may be mildly there does appear to be evidence of constipation on the lumbar spine x-ray. Take Tylenol or ibuprofen as directed as needed for mild to moderate pain. Take tramadol as directed as needed for severe pain only. Apply warm compresses to the low back. Drink plenty of fluids and increase your fiber intake with regards to your constipation. Please follow up with your primary care physician regarding this emergency room visit. If you do not have a primary care physician, please call the [facility] at [phone] [facility] a new primary care physician. Please return to the emergency department if you develop any severe change in your symptoms, or if you experience any other new or worsening symptoms or concerns. * Attachments The following attachments cannot be sent through Care Everywhere. * Back Pain (Tajik) * Numbness and Tingling (Tajik) documented in this encounter Medications at Time of Discharge ascorbic acid (VITAMIN C) 250 mg tablet Take 1 tablet (250 mg total) by mouth. cetirizine (ZyrTEC) 10 mg tablet Take 1 tablet (10 mg total) by mouth 1 (one) time each day. 05/14/2024 cholecalciferol (VITAMIN D-3) 25 mcg (1,000 unit) tablet Take 1 tablet (1,000 Units total) by mouth. cyanocobalamin (VITAMIN B-12) 1,000 mcg tablet Take 1 tablet (1,000 mcg total) by mouth. LORazepam (ATIVAN) 1 mg tablet TAKE 1 TABLET BY MOUTH 3 TIMES A DAY IF NEEDED FOR ANXIETY FOR UP TO 5 DAYS. MAX DAILY AMOUNT 3 TAB Oral for 5 Days melatonin 10 mg tablet Take 1 tablet (10 mg total) by mouth. methocarbamoL (ROBAXIN) 750 mg tablet 1 tablet (750 mg total) every 4 hours. sucralfate (CARAFATE) 1 gram tablet Take 1 tablet (1 g total) by mouth 4 (four) times a day. Take 1 hour before meals and at bedtime 120 each 11 11/20/2024 11/20/2025 traMADoL (ULTRAM) 50 mg tablet Take 1 tablet (50 mg total) by mouth every 6 (six) hours if needed for severe pain for up to 3 days. Max Daily Amount: 200 mg 5 tablet 12/14/2024 12/17/2024 documented as of this encounter Ordered Prescriptions Prescription Sig Dispense Quantity Refills Last Filled Start Date End Date traMADoL (ULTRAM) 50 mg tablet Take 1 tablet (50 mg total) by mouth every 6 (six) hours if needed for severe pain for up to 3 days. Max Daily Amount: 200 mg 5 tablet 12/14/2024 12/17/2024 documented in this encounter Discharge Disposition Disposition Code Departure Means Destination Comment s Home or Self Care documented in this encounter Progress Notes * Lyssa Crowe RN - 12/14/2024 10:19 AM EST Pt comes to ER with c/o BL LE numbness and upper body weakness and having a hard time keeping her head up. Pt denies fever/chills/SOB/CP. Pt in wheelchair. A&Ox4. * Stephanie Nina, - 12/14/2024 10:07 AM EST Emergency Medicine Note Patient Name: María Phillips Initial Evaluation: 12/14/2024 : 1965 Patient's PCP: TL Denis Emergency Physician: TL Brooks History of Present Illness Chief Complaint: Chief Complaint Patient presents with Extremity Weakness BILATERAL LEG NUMBNESS X4 DAYS HPI: 59-year-old female past medical history significant for anxiety, depression, slipped rib syndrome, among others presents today with multiple complaints over the past 4 days including extremity shaking and weakness, bilateral and mid low back pain rating down bilateral posterior thighs in the ab sence of trauma, urinary retention with suprapubic discomfort. She reports she cannot walk as she feels like she is going to fall from the weakness in her legs as well as the pain in her back. Deniesfevers, chills, dizziness, lightheadedness, chest pain, shortness of breath, cough, congestion, sore throat, myalgias, dysuria, hematuria, nausea, vomiting, diarrhea, lower extremity swelling. She reports that her primary care provider sent her in, was supposed to have an outpatient lumbar puncturedone by her neurologist through [facility]. Denies any IVDU, recent steroid use, known malignancy, saddle anesthesia, incontinence. Also notes tingling in bilateral lower extremities and bilateral hands. ROS: I have performed a ROS with the pertinent positives and negatives documented in the history ofpresent illness. Previous History Past Medical History: Diagnosis Date Abdominal pain Anxiety Treated with Klonopin in the past. Does not want to have narcotics or addictions. Carpal tunnel syndrome 01/23/202001/2020 steroid injection left, endoscopic release right Change in bowel habits Decreased appetite Depressive disorder Dysphagia Epigastric pain Globus sensation History of actinic keratoses 03/19/2019 Actinic keratoses 03/24 right cheek (lichenoid) Post-traumatic osteoarthritis of left knee 10/03/2023 Rheumatoid arthritis (CMS/HCC) 12/25/2020 Throat pain Thyroid nodule 07/05/2021 US 06/2021 FNA pending Past Surgical History: Procedure Laterality Date BREAST BIOPSY Left 2015 b9 fibrous tissue BREAST SURGERY Left 2016 b9 fibrous tissue CARPAL TUNNEL RELEASE Right 01/20/2020 PROCEDURE: AR NEUROPLASTY &/TRANSPOS MEDIAN NRV CARPAL TUNNE COLONOSCOPY EYE SURGERY 1974 HERNIA REPAIR 07/28/2018 Laparoscopic repair of an incarcerated incisional hernia; Dr. Keenan ORTHOPEDIC SURGERY 1996 Left ACL OTHER SURGICAL HISTORY 12/2017 Dr. Lozano Social History Tobacco Use Smoking status: Every Day Current packs/day: 0.00 Types: Cigarettes Last attempt to quit: 07/15/2018 Years since quittin.4 Smokeless tobacco: Never Substance Use Topics Alcohol use: Not Currently Drug use: No Family History Problem Relation Name Age of Onset Hypertension Father Esophageal cancer, at 73 Other (Other: Hypothyroidism) Maternal Grandmother Breast cancer Neg Hx is allergic to erythromycin, clindamycin, duloxetine hcl, and infliximab. No current facility-administered medications on file prior to encounter. Current Outpatient Medications on File Prior to Encounter Medication Sig Dispense Refill ascorbic acid (VITAMIN C) 250 mg tablet Take 1 tablet (250 mg total) by mouth. cetirizine (ZyrTEC) 10 mg tablet Take 1 tablet (10 mg total) by mouth 1 (one) time each day. cholecalciferol (VITAMIN D-3) 25 mcg (1,000 unit) tablet Take 1 tablet (1,000 Units total) by mouth. cyanocobalamin (VITAMIN B-12) 1,000 mcg tablet Take 1 tablet (1,000 mcg total) by mouth. LORazepam (ATIVAN) 1 mg tablet TAKE 1 TABLET BY MOUTH 3 TIMES A DAY IF NEEDED FOR ANXIETY FOR UP TO5 DAYS. MAX DAILY AMOUNT 3 TAB Oral for 5 Days melatonin 10 mg tablet Take 1 tablet (10 mg total) by mouth. methocarbamoL (ROBAXIN) 750 mg tablet 1 tablet (750 mg total) every 4 hours. [] oxyCODONE-acetaminophen (PERCOCET) 10-325 mg per tablet Take 1 tablet by mouth every 6 (six) hours if needed for severe pain for up to 3 days. Max Daily Amount: 4 tablets 12 tablet 0 sucralfate (CARAFATE) 1 gram tablet Take 1 tablet (1 g total) by mouth 4 (four) times a day. Take 1hour before meals and at bedtime 120 each 11 Physical Exam ED Triage Vitals [12/14/24 1017] Temp Heart Rate Resp BP 37.2 ??C (99 ??F) 94 18 (!) 149/89 SpO2 Temp Source Heart Rate Source Patient Position 99 % Oral Monitor Sitting BP Location FiO2 (%) Left arm -- GENERAL: Anxious appearing, nontoxic. SKIN: Appropriate color for ethnicity, warm, dry. No rashes. HEENT: No stridor, no lymphadenopathy. Normocephalic, atraumatic. NECK: Soft, supple, full ROM, Midline structures, nontender, no step-off, no deformity. CHEST: Heart regular rate and rhythm, no rubs, no gallops or murmurs. PULMONARY: Clear to auscultation bilaterally without any adventitious lung sounds. ABDOMINAL: Soft, nondistended nontender with positive bowel sounds. No rebound, no guarding, negative Rovsing, negative Freed's. : Deferred. MUSCULOSKELETAL: Normal tone, appropriate range of motion. 5 out of 5 motor. Plantarflexion and dorsiflexion bilaterally 5 out of 5 motor. Focally tender palpation of the right lumbar and musculatureand right buttock without any midline spinal tenderness. NEURO: Alert and oriented x3, Cranial nerves II through XII are intact, extraocular motions are intact, PERRL. Sensation grossly intact to light touch. No facial droop, no slurred speech, names objects appropriately, follows simple commands, finger-nose and koys-aj-tuys testing are intact. PSYCHIATRIC: Normal affect, fluid speech, good eye contact and appropriate demeanor. Results Labs Reviewed BASIC METABOLIC PANEL - Abnormal Result Value Sodium 138 Potassium 4.5 Chloride 106 CO2 28 Anion Gap 4 Glucose 119 (*) BUN 13 Creatinine 0.82 eGFR 84 BUN/Creatinine Ratio 15.9 Calcium 9.6 CBC WITH AUTO DIFFERENTIAL - Abnormal WBC 8.5 RBC 4.40 Hemoglobin 14.1 Hematocrit 42.2 MCV 96.6 MCH 32.3 (*) MCHC 33.4 RDW 13.2 Platelets 329 MPV 9.5 NRBC 0.0 NRBC Absolute 0.00 Neutrophils Relative 73.7 Lymphocytes Relative 17.8 Monocytes Relative 6.9 Eosinophils Relative 0.8 Basophils Relative 0.4 Immature Granulocytes Relative 0.4 Neutrophils Absolute 6.29 Lymphocytes Absolute 1.52 Monocytes Absolute 0.59 Eosinophils Absolute 0.07 Basophils Absolute 0.03 Immature Granulocytes Absolute 0.03 RESPIRATORY VIRUS PANEL MOLECULAR STUDY - Normal Adenovirus Detection by PCR Not Detected Influenza A PCR Not Detected Influenza B PCR Not Detected Coronavirus 229E Not Detected Coronavirus HKU1 Not Detected Coronavirus OC43 Not Detected Coronavirus NL63 Not Detected Parainfluenza Virus 1 Not Detected Parainfluenza Virus 2 Not Detected Parainfluenza Virus 3 Not Detected Parainfluenza Virus 4 Not Detected RSV PCR Not Detected Human Metapneumovirus A and B Not Detected Rhinovirus/Enterovirus Not Detected Bordetella pertussis Not Detected Bordetella parapertussis Not Detected Mycoplasma pneumo by PCR Not Detected Chlamydia pneumoniae Not Detected SARS COV-2 Not Detected Narrative: Testing was performed using the House[employer] Respiratory Pathogen PCR Assay. All results must be correlated with the clinical findings. Results should not be used as the sole basis for diagnosis. False Negative results may occur from the presence of sequence variants in the region targeted by the assay or the presence of inhibitors. Results may be affected by concurrent antiviral/antimicrobial therapy or levels of organisms that are below the limit of detection. MAGNESIUM - Normal Magnesium 2.0 PHOSPHORUS - Normal Phosphorus 3.5 URINALYSIS WITH REFLEX MICROSCOPIC AND CULTURE - Normal Specific [place] Urine 1.012 pH, Urine 7.5 Leukocytes, Urine Negative Nitrite, Urine Negative Protein, Urine Negative Glucose, Urine Negative Ketones, Urine Negative Urobilinogen, Urine 0.2 Bilirubin, Urine Negative Blood, Urine Negative CBC AND DIFFERENTIAL Narrative: The following orders were created for panel order CBC and differential. Procedure Abnormality Status --------- ------ CBC auto differential[[id number]] Abnormal Final result Please view results for these tests on the individual orders. URINALYSIS WITH REFLEX MICROSCOPIC AND CULTURE Narrative: The following orders were created for panel order Urinalysis with reflex microscopic and culture. Procedure Abnormality Status --------- ------ Urinalysis with reflex ...[[id number]] Normal Final result [place] urine culture tube[[id number]] Final result Please view results for these tests on the individual orders. Abnormal Labs Reviewed BASIC METABOLIC PANEL - Abnormal; Notable for the following components: Result Value Glucose 119 (*) All other components within normal limits CBC WITH AUTO DIFFERENTIAL - Abnormal; Notable for the following components: MCH 32.3 (*) All other components within normal limits CT Head wo Contrast Final Result Impression: No acute findings. This document has been electronically signed by: Olga Jauregui MD on 12/14/2024 17:57:05 XR Lumbar Spine 2-3 Views (Results Pending) I have discussed the incidental/abnormal imaging and/or lab abnormalities with the patient and haveinstructed them the need for further evaluation and workup with their primary care doctor. I have provided the patient with a paper copy of the abnormality. The laboratory results, imaging results and other diagnostic exam results were reviewed in the EMR. EKG Interpretation Critical Care Time None Differential Diagnosis Electrolyte derangement Muscle strain/spasm Degenerative disc disease Cord compression/cauda equina syndrome CVA/ICH Sciatica Spinal epidural abscess-lower suspicion ? Medical Decision Making Medications diazePAM (VALIUM) tablet 5 mg (5 mg oral Given 12/14/241731) ketorolac (TORADOL) injection 30 mg (30 mg intramuscular Given 12/14/241729) oxyCODONE-acetaminophen (PERCOCET) 5-325 mg per tablet 1 tablet (1 tablet oral Given 12/14/242010) ED Course as of 12/14/24 2115 Sat Dec 14, 2024 1613 Patient was seen and evaluated, she is hemodynamically stable and afebrile, nontoxic-appearing, presenting with multiple complaints including weakness of the arms and legs, bilateral and mid lowback pain rating down bilateral legs, extremity tingling. She also notes urinary retention sometimes not being able to pee or sometimes incompletely emptying her bladder. All of her symptoms began 4 days ago, no history of trauma. On exam she has 5 out of 5 motor with plantarflexion and dorsiflexion of both lower extremities, 5 out of 5 motor all extremities. Lab workup is largely unremarkable thus far, phosphorus has been added on, will obtain CT head without contrast to start, and obtain bladder scan pre and postvoid, UA. Given the patient has upper extremity symptoms as well as a lower suspicion for a cord compression syndrome however may require imaging of the spine, will discuss further with my attending physician. [YB] 1823 CT without acute findings, UA is negative, viral panel negative, lab workup large unremarkable, electrolytes. WNL. Patient has a history of visits for similar vague neurologic complaints with a shaking, numbness, tingling. Had EMG studies in the past and is followed by neurology. She has no urinary retention on her postvoid residual, very low suspicion for a cauda equina syndrome or cord compression syndrome given she has upper extremity symptoms as well, was able to ambulate with a stablegait on her own to the bathroom and back. [YB] 1924 Patient reports her pain is unchanged, she appears comfortable on exam, was able to ambulate with a stable gait and has good strength to her lower extremities and upper extremities with intact sensation to light touch. I discussed the case further with Dr. Nina, will obtain lumbar spine x-rayand give additional pain control. [YB] 210 Patient reports again no change to her pain, she is not in any acute distress. Detailed chart review patient was here on December 05 for similar pain, though she tells me the pain started 4 days ago. She is focally tender palpation over the right buttock and does not have any midline spinal tenderness on my exam, again good strength the lower extremities and sensation is intact. I have a verylow suspicion for any cord compression syndrome. She continues to say that her extremities are weakbut she has 5 out of 5 motor. She tells me that she was very worried that she could have polymyositis. I did offer her subacute status with physical therapy evaluation though she states she wants to go home and feels comfortable going home. She ambulates with a stable gait. We I reviewed the lumbarspine x-ray with Dr. Nina, does appear constipated but there is no acute fracture or other concerning findings noted. Patient will be discharged with symptomatic management, advised to increase her fluid and fiber intake regarding her constipation. Tramadol for severe pain only, PDMP reviewed without suspicious activity.. Warm compresses to the low back. Strict return precaution discussed, PCP follow-up advised, patient expresses understanding plan, all questions answered. [YB] ED Course User Index [YB] LT Brooks Clinical Impressions as of 12/14/242114 Acute bilateral low back pain, unspecified whether sciatica present Tingling in extremities Procedures Procedures Diagnosis 1. Acute bilateral low back pain, unspecified whether sciatica present 2. Tingling in extremities Disposition Discharge ED Prescriptions Medication Sig Dispense Start Date End Date Auth. Provider traMADoL (ULTRAM) 50 mg tablet Take 1 tablet (50 mg total) by mouth every 6 (six) hours if needed for severe pain for up to 3 days. Max Daily Amount: 200 mg 5 tablet 12/14/2024 12/17/2024 TL Brooks Physician Attestation This is a split/shared visit with TL Brooks. I personally performed the medical decision making (MDM) for the care of this patient on 12/14/24 as documented below 59-year-old female presented hospital today for further evaluation of back pain. Patient has tremors that have been eval by neurology. She had a negative EMG performed in the past. I have performed extensive chart review on this patient. Patient stated that she is having some weakness in her legs. However while here patient is able to ambulate bony issues. Red flag symptoms of her back. Lumbar x-ray is negative. Patient will be discharged with outpatient follow-up. Stephanie Nina, 12/14/24 10:07 PM EST Stephanie Nina, DO TL Brooks 12/14/24 1617 TL Brooks 12/14/242114 TL Brooks 12/14/242114 Stephanie Nina DO 12/14/24 2210 documented in this encounter Miscellaneous Notes * ED Bed Hold Note - Sharon Nugent RN - 12/14/2024 2:01 PM EST Bed: OR-36 Expected date: Expected time: Means of arrival: Comments: Next by time from please documented in this encounter Plan of Treatment Upcoming Encounters Date Type Department Care Team (Late st Contact Info) Description 12/26/2024 8:15 AM EST Appointment [facility] Xray [address] [place] [address] 12/27/2024 3:15 PM EST Office Visit Neurosurgery [facility] [address] [place] [id number] Peggy Leon MD [address] [place] [address] documented as of this encounter Procedures Procedure Name Priority Date/Time Associated Diagnosis Comments XR LUMBAR SPINE 2-3 VIEWS STAT 12/14/2024 8:26 PM EST URINALYSIS WITH REFLEX MICROSCOPIC AND CULTURE STAT 12/14/2024 5:16 PM EST [place] URINE CULTURE TUBE STAT 12/14/2024 5:16 PM EST URINALYSIS WITH REFLEX MICROSCOPIC AND CULTURE STAT 12/14/2024 5:[address] HEAD WO CONTRAST STAT 12/14/2024 4 :54 PM EST ECG 12-LEAD STAT 12/14/2024 4:37 PM EST RESPIRATORY VIRUS PANEL MOLECULAR STUDY STAT 12/14/2024 4:28 PM EST CBC WITH AUTO DIFFERENTIAL STAT 12/14/2024 12:01 PM EST CBC AND DIFFERENTIAL STAT 12/14/2024 12:01 PM EST PHOSPHORUS STAT Add-on 12/14/2024 12:01 PM EST MAGNESIUM STAT 12/14/2024 12:01 PM EST BASIC METABOLIC PANEL STAT 12/14/2024 12:01 PM EST ECG ANNOTATED 12/14/2024 documented in this encounter Results * XR Lumbar Spine 2-3 Views (12/14/2024 8:26 PM EST) Anatomical Region Laterality Modality Spine, L-spine Radiographic Krystyna ging 12/15/2024 7:40 AM EST Impressions 12/15/2024 7:42 AM EST Mild degenerative disc changes virtually at every disc levels. No visible acute fracture or dislocation seen. -------- FINAL REPORT -------- Dictated By: Alvin Rubio Dictated Date: 12/15/2024 07:40 ET Assigned Physician: Alvin Rubio Reviewed and Electronically Signed By: Alvin Rubio Signed Date: 12/15/2024 07:42 ET Workstation ID: [id number] Transcribed By: Self Edit Transcribed Date: 12/15/2024 07:40 ET Narrative 12/15/2024 7:42 AM EST Examination: Lumbar spine 2-3 views. CLINICAL INDICATION: Low back pain. COMPARISON: Whole body bone scan 09/19/2024. FINDINGS: There is normal lumbar lordosis. The vertebral heights and alignment is maintained normal. There is loss of disc height at almost all disc levels with ventral spondylosis. No aggressive lytic or sclerotic process seen. SI joints are symmetrical. There is moderate stool seen in the right colon without distention. Procedure Note Alvin Rubio MD - 12/15/2024 Examination: Lumbar spine 2-3 views. CLINICAL INDICATION: Low back pain. COMPARISON: Whole body bone scan 09/19/2024. FINDINGS: There is normal lumbar lordosis. The vertebral heights andalignment is maintained normal. There is loss of disc height at almost alldisc levels with ventral spondylosis. No aggressive lytic or scleroticprocess seen. SI joints are symmetrical. There is moderate stool seen inthe right colon without distention. IMPRESSION: Mild degenerative disc changes virtually at every disc levels. No visibleacute fracture or dislocation seen. -------- FINAL REPORT -------- Dictated By: Alvin Rubio Dictated Date: 12/15/2024 07:40 ET Assigned Physician: Alvin Rubio Reviewed and Electronically Signed By: Alvin Rubio Signed Date: 12/15/2024 07:42 ET Workstation ID: [id number] Transcribed By: Self Edit Transcribed Date: 12/15/2024 07:40 ET us [facility] IMG XR PROCEDURES Final Result * [place] urine culture tube (12/14/2024 5:16 PM EST) Pathologist [facility] Extra Tube Hold for add-ons. 12/14/2024 7:02 PM EST [facility] Comment:Auto resulted. Urine Urine specimen obtained by clean catch procedure / Unknown Non-blood Collection / Unknown 12/14/2024 5:16 PM EST 12/14/2024 5:38 PM EST us [facility] LAB URINE ORDERABLES Final Resul t [facility] [address] [place] [address], [place] [phone] * Urinalysis with reflex microscopic and culture (12/14/2024 5:16 PM EST) Pathologist [facility] Specific [place] Urine 1.012 1.003 - 1.030 LAB URINALYSIS - AUTOMATED METHOD 12/14/2024 6:08 PM EST [facility] LAB pH, Urine 7.5 5.0 - 8.0 pH LAB URINALYSIS - AUTOMATED METHOD 12/14/2024 6:08 PM [facility] Leukocytes, Urine Negative Negative LAB URINALYSIS - AUTOMATED METHOD 12/14/2024 6:08 PM [facility] Nitrite, Urine Negative Negative LAB URINALYSIS - AUTOMATED METHOD 12/14/2024 6:08 PM [facility] Protein, Urine Negative <=Trace mg/dL LAB URINALYSIS - AUTOMATED METHOD 12/14/2024 6:08 PM [facility] Glucose, Urine Negative Negative mg/dL LAB URINALYSIS - AUTOMATED METHOD 12/14/2024 6:08 PM [facility] Ketones, Urine Negative Negative mg/dL LAB URINALYSIS - AUTOMATED METHOD 12/14/2024 6:08 PM [facility] Urobilinogen, Urine 0.2 0.2 - 1.0 mg/dL LAB URINALYSIS - AUTOMATED METHOD 12/14/2024 6:08 PM [facility] Bilirubin, Urine Negative Negative LAB URINALYSIS - AUTOMATED METHOD 12/14/2024 6:08 PM [facility] Blood, Urine Negative Negative LAB URINALYSIS - AUTOMATED METHOD 12/14/2024 6:08 PM [facility] Urine Urine specimen obtained by clean catch procedure / Unknown Non-blood Collection / Unknown 12/14/2024 5:16 PM EST 12/14/2024 5:38 PM EST us Dwight BOOTHE LAB URINE ORDERABLES Final Resul t [facility] [address] [place] [address], * CT Head wo Contrast (12/14/2024 4:54 PM EST) Anatomical Region Laterality Modality Head and Neck Computed Tomogra phy 12/14/2024 5:57 PM EST Impressions 12/14/2024 5:57 PM EST Impression: No acute findings. This document has been electronically signed by: Olga Jauregui MD on 12/14/2024 17:57:05 Narrative 12/14/2024 5:57 PM EST INDICATION: Extremity weakness, left greater than right x [address] head without contrast Comparison: 09/18/24 Findings: No acute hemorrhage. No extra-axial fluid collection. No hydrocephalus, mass-effect or herniation. Inman-white differentiation is maintained. White matter is within normal limits for age. No acute orbital pathology. No acute soft tissue abnormality. No fracture. The visualized paranasal sinuses are predominantly clear. The mastoid air cells are clear. Procedure Note Olga Rai MD - 12/14/2024 INDICATION: Extremity weakness, left greater than right x [address] head without contrast Comparison: 09/18/24 Findings: No acute hemorrhage. No extra-axial fluid collection. No hydrocephalus, mass-effect or herniation. Inman-white differentiation is maintained.White matter is within normal limits for age. No acute orbital pathology. No acute soft tissue abnormality. Nofracture. The visualized paranasal sinuses are predominantly clear. The mastoidair cells are clear. IMPRESSION: Impression: No acute findings. This document has been electronically signed by: Olga Jauregui MD on 12/14/2024 17:57:05 us Yotam Block PA IMG CT PROCEDURES Final Result * ECG 12 lead (12/14/2024 4:37 PM EST) Ventricular Rate ECG 67 BPM GEMUSE Atrial Rate 67 BPM GEMUSE P-R Interval 162 ms GEMUSE QRS Duration 64 ms GEMUSE Q-T Interval 422 ms GEMUSE QTc 445 ms GEMUSE P Wave [place] 40 degrees GEMUSE R [place] 6 degrees GEMUSE T [place] 26 degrees GEMUSE ECG Interpretation Normal sinus rhythm Nonspecific T wave abnormality Abnormal ECG When compared with ECG of 26-OCT-2024 07:05, No significant change was found Confirmed by Lydia JEFFERSON YUFENG ([id number]) on 12/14/2024 5:33:44 PM GEMUSE 12/14/2024 4:37 PM EST 12/14/2024 5:33 PM EST us Pepe Mar DO ECG ORDERABLES Final Resul t GEMUSE * Respiratory virus panel molecular study (12/14/2024 4:28 PM EST) Adenovirus Detection by PCR Not Detected Not Detected LAB MICROBIOLOGY METHOD 12/14/2024 5:56 PM EST [facility] Influenza A PCR Not Detected Not Detected LAB MICROBIOLOGY METHOD 12/14/2024 5:56 PM EST [facility] Influenza B PCR Not Detected Not Detected LAB MICROBIOLOGY METHOD 12/14/2024 5:56 PM [facility] Coronavirus 229E Not Detected Not Detected LAB MICROBIOLOGY METHOD 12/14/2024 5:56 PM [facility] Coronavirus HKU1 Not Detected Not Detected LAB MICROBIOLOGY METHOD 12/14/2024 5:56 PM EST [facility] Coronavirus OC43 Not Detected Not Detected LAB MICROBIOLOGY METHOD 12/14/2024 5:56 PM [facility] Coronavirus NL63 Not Detected Not Detected LAB MICROBIOLOGY METHOD 12/14/2024 5:56 PM [facility] Parainfluenza Virus 1 Not Detected Not Detected LAB MICROBIOLOGY METHOD 12/14/2024 5:56 PM [facility] Parainfluenza Virus 2 Not Detected Not Detected LAB MICROBIOLOGY METHOD 12/14/2024 5:56 PM [facility] Parainfluenza Virus 3 Not Detected Not Detected LAB MICROBIOLOGY METHOD 12/14/2024 5:56 PM [facility] Parainfluenza Virus 4 Not Detected Not Detected LAB MICROBIOLOGY METHOD 12/14/2024 5:56 PM [facility] RSV PCR Not Detected Not Detected LAB MICROBIOLOGY METHOD 12/14/2024 5:56 PM [facility] Human Metapneumovirus A and B Not Detected Not Detected LAB MICROBIOLOGY METHOD 12/14/2024 5:56 PM EST [facility] Rhinovirus/Entero virus Not Detected Not Detected LAB MICROBIOLOGY METHOD 12/14/2024 5:56 PM [facility] Bordetella pertussis Not Detected Not Detected LAB MICROBIOLOGY METHOD 12/14/2024 5:56 PM EST [facility] Bordetella parapertussis Not Detected Not Detected LAB MICROBIOLOGY METHOD 12/14/2024 5:56 PM EST [facility] Mycoplasma pneumo by PCR Not Detected Not Detected LAB MICROBIOLOGY METHOD 12/14/2024 5:56 PM [facility] Chlamydia pneumoniae Not Detected Not Detected LAB MICROBIOLOGY METHOD 12/14/2024 5:56 PM [facility] SARS COV-2 Not Detected Not Detected LAB MICROBIOLOGY METHOD 12/14/2024 5:56 PM [facility] Swab Both anterior nares / Unknown Non-blood Collection / Unknown 12/14/2024 4:28 PM EST 12/14/2024 4:34 PM EST [facility] - 12/14/2024 5:56 PM EST Testing was performed using the [employer] Respiratory Pathogen PCR Assay. All results must be correlated with the clinical findings. Results should not be used as the sole basis for diagnosis. False Negative results may occur from the presence of sequence variants in the region targeted by the assay or the presence of inhibitors. Results may be affected by concurrent antiviral/antimicrobial therapy or levels of organisms that are below the limit of detection. us Dwight BOOTHE LAB MICROBIOLOGY - GENERAL ORDER KAILASH Final Result [facility] [address] [place] [address], * Phosphorus (12/14/2024 12:01 PM EST) Phosphorus 3.5 2.5 - 4.5 mg/dL LAB CHEMISTRY METHOD 12/14/2024 4:31 PM [facility] Blood Venous blood specimen / Unknown Venipuncture / Unknown 12/14/2024 12:01 PM EST 12/14/2024 12:24 PM EST us Dwight BOOTHE LAB BLOOD ORDERABLES Final Resul t [facility] [address] [place] [address], [place] [phone] * (ABNORMAL) CBC auto differential (12/14/2024 12:01 PM EST) WBC 8.5 4.8 - 10.8 K/mcL LAB HEMETOLOGY METHOD 12/14/2024 12:29 PM [facility] RBC 4.40 3.80 - 4.80 M/mcL LAB HEMETOLOGY METHOD 12/14/2024 12:29 PM [facility] Hemoglobin 14.1 11.5 - 16.0 g/dL LAB HEMETOLOGY METHOD 12/14/2024 12:29 PM [facility] Hematocrit 42.2 35.0 - 47.0 % LAB HEMETOLOGY METHOD 12/14/2024 12:29 PM [facility] MCV 96.6 79.0 - 98.0 FL LAB HEMETOLOGY METHOD 12/14/2024 12:29 PM [facility] MCH 32.3(H) 27.0 - 32.0 pcg LAB HEMETOLOGY METHOD 12/14/2024 12:29 PM [facility] MCHC 33.4 32.0 - 37.0 g/dL LAB HEMETOLOGY METHOD 12/14/2024 12:29 PM [facility] RDW 13.2 11.0 - 15.0 % LAB HEMETOLOGY METHOD 12/14/2024 12:29 PM [facility] Platelets 329 130 - 400 K/mcL LAB HEMETOLOGY METHOD 12/14/2024 12:29 PM [facility] MPV 9.5 7.0 - 11.0 FL LAB HEMETOLOGY METHOD 12/14/2024 12:29 PM [facility] NRBC 0.0 <1.0 % LAB HEMETOLOGY METHOD 12/14/2024 12:29 PM [facility] NRBC Absolute 0.00 <0.10 K/mcL LAB HEMETOLOGY METHOD 12/14/2024 12:29 PM [facility] Neutrophils Relative 73.7 % LAB HEMETOLOGY METHOD 12/14/2024 12:29 PM [facility] Lymphocytes Relative 17.8 % LAB HEMETOLOGY METHOD 12/14/2024 12:29 PM [facility] Monocytes Relative 6.9 % LAB HEMETOLOGY METHOD 12/14/2024 12:29 PM [facility] Eosinophils Relative 0.8 % LAB HEMETOLOGY METHOD 12/14/2024 12:29 PM [facility] Basophils Relative 0.4 % LAB HEMETOLOGY METHOD 12/14/2024 12:29 PM [facility] Immature Granulocytes Relative 0.4 % LAB HEMETOLOGY METHOD 12/14/2024 12:29 PM [facility] Neutrophils Absolute 6.29 1.50 - 7.00 K/mcL LAB HEMETOLOGY METHOD 12/14/2024 12:29 PM [facility] Lymphocytes Absolute 1.52 1.00 - 5.00 K/mcL LAB HEMETOLOGY METHOD 12/14/2024 12:29 PM [facility] Monocytes Absolute 0.59 0.20 - 1.00 K/mcL LAB HEMETOLOGY METHOD 12/14/2024 12:29 PM [facility] Eosinophils Absolute 0.07 0.00 - 0.50 K/[facility] LAB HEMETOLOGY METHOD 12/14/2024 12:29 PM EST [facility] Basophils Absolute 0.03 0.00 - 0.20 K/[facility] LAB HEMETOLOGY METHOD 12/14/2024 12:29 PM EST [facility] Immature Granulocytes Absolute 0.03 0.00 - 0.03 K/[facility] LAB HEMETOLOGY METHOD 12/14/2024 12:29 PM EST [facility] Blood Venous blood specimen / Unknown Venipuncture / Unknown 12/14/2024 12:01 PM EST 12/14/2024 12:24 PM EST Pepe Mar LAB BLOOD ORDERABLES Final Result Performing Organization Address [facility]/ZIP Co de Phone Number [facility] [address] [place] [address], [place] [phone] * Magnesium (12/14/2024 12:01 PM EST) Pathologist [facility] Magnesium 2.0 1.9 - 2.6 mg/dL LAB CHEMISTRY METHOD 12/14/2024 12:51 PM [facility] Blood Venous blood specimen / Unknown Venipuncture / Unknown 12/14/2024 12:01 PM EST 12/14/2024 12:24 PM EST Pepe Mar DO LAB BLOOD ORDERABLES Final Result Performing Organization Address [facility]/ZIP Co de Phone Number [facility] [address] [place] [address], [place] [phone] * (ABNORMAL) Basic metabolic panel (12/14/2024 12:01 PM EST) Sodium 138 133 - 145 mmol/L LAB CHEMISTRY METHOD 12/14/2024 12:59 PM EST [facility] Potassium 4.5 3.5 - 5.5 mmol/L LAB CHEMISTRY METHOD 12/14/2024 12:59 PM [facility] Chloride 106 96 - 110 mmol/L LAB CHEMISTRY METHOD 12/14/2024 12:59 PM [facility] CO2 28 21 - 32 mmol/L LAB CHEMISTRY METHOD 12/14/2024 12:59 PM [facility] Anion Gap 4 3 - 11 LAB CHEMISTRY METHOD 12/14/2024 12:59 PM [facility] Glucose 119(H) 70 - 100 mg/dL LAB CHEMISTRY METHOD 12/14/2024 12:59 PM [facility] BUN 13 5 - 25 mg/dL LAB CHEMISTRY METHOD 12/14/2024 12:59 PM [facility] Creatinine 0.82 0.50 - 1.10 mg/dL LAB CHEMISTRY METHOD 12/14/2024 12:59 PM [facility] eGFR 84 >=60 mL/min/1. 73m2 LAB CHEMISTRY METHOD 12/14/2024 12:59 PM [facility] Comment:Calculation based on the??Chronic Kidney Disease Epidemiology Collaboration (CKD-EPI) equation refit??without adjustment for race. BUN/Creatinine Ratio 15.9 LAB CHEMISTRY METHOD 12/14/2024 12:59 PM [facility] Calcium 9.6 8.5 - 10.5 mg/dL LAB CHEMISTRY METHOD 12/14/2024 12:59 PM [facility] Blood Venous blood specimen / Unknown Venipuncture / Unknown 12/14/2024 12:01 PM EST 12/14/2024 12:24 PM EST us Pepe Mar DO LAB BLOOD ORDERABLES Final Result [facility] [address] [place] [address], * ECG-Annotated (12/14/2024) us Provider Onbase MD ECG ORDERABLES Final Result documented in this encounter Visit Diagnoses Diagnosis Acute bilateral low back pain, unspecified whether sciatica present- Primary Tingling in extremities documented in this encounter Administered Medications Inactive Administered Medications - up to 3 most recent administrations Medication Order MAR Action Action Date Dose Rate Site diazePAM (VALIUM) tablet 5 mg 5 mg, oral, Once, On 12/14/24 at 1703, For 1 dose Given 12/14/2024 5:32 PM EST 5 mg ketorolac (TORADOL) injection 30 mg 30 mg, intramuscular, Once, On 12/14/24 at 1703, For 1 dose Given 12/14/2024 5:30 PM EST 30 mg Left Deltoid oxyCODONE-acetaminophen (PERCOCET) 5-325 mg per tablet 1 tablet 1 tablet, oral, Once, On 12/14/24 at 1924, For 1 dose Given 12/14/2024 8:11 PM EST 1 tablet documented in this encounter Active and Recently Administered Medications Times are shown in EST. Scheduled Medication Order 12/12/2024 12/13/2024 12/14/2024 diazePAM (VALIUM) tablet 5 mg (COMPLETED) 5 mg, oral, Once, On 12/14/24 at 1703, For 1 dose 173 (Given - Provid er: Amparo Hu RN) ketorolac (TORADOL) injection 30 mg (COMPLETED) 30 mg, intramuscular, Once, On 12/14/24 at 1703, For 1 dose 173 (Given - Provid er: Amparo Hu RN) oxyCODONE-acetaminophen (PERCOCET) 5-325 mg per tablet 1 tablet (COMPLETED) 1 tablet, oral, Once, On 12/14/24 at 1924, For 1 dose 2010 (Given - Provid er: Bessy Jordan RN) documented in this encounter Orders EKG Orders Without Results Count Last Ordered D ate First Ordered Date ECG 12-LEAD 1 12/14/2024 Nursing Count Last Ordered Date First Orde red Date BLADDER SCAN 1 12/14/2024 VITAL SIGNS 1 12/14/2024 documented in this encounter Additional Health Concerns Infection Onset Date Last Indicated Resolved Time Respiratory Rule-Out 12/14/2024 12/14/2024 025 5:56 PM EST COVID-19 Rule-Out 12/14/2024 12/14/2024 12/14/2024 5:56 PM EST documented as of this encounter Care Teams Returns Clerk Relationship Specialty Start Date End Date Araceli Augustin PA [address] [phone] PCP - General 11/20/24 documented as of this encounter
--- OUTSIDE RECORDS SUMMARY | 2024-12-24 08:59 | XMS_ITS | Encounter Summary ---
Author Organization [facility] Address [address] [place] [address] Care Team Providers Care Preschool Head Teacher Name Role Phone Araceli Augustin Primary Care Provider + Encounter Details Date Type Department Care Team (Late st Contact Info) Description 12/16/2024 Telephone Neurosurgery [facility] [address] [place] [address] Cielo Perez MA Social History Tobacco Use Types Packs/Day Years [...] Tracee Cassidy RN documented in this encounter Progress Notes * TL Morgan - 12/16/2024 5:20 PM EST Pt going for surgery for slipped rib surgery tomorrow. PCP cleared her for surgery. Pins and needles in leg excruciating and cannot sit now. Can walk, legs working ok. But main concern now is she cannot sit and cannot tolerate the pins and needles, which are newer sxs. Right upper back pain, minimal in Low back pain. She has appt with Dr. Rodriguez but would like one sooner if possible. She is concerned she is having issues with SI joints. Does not yet have appt with [facility] neurosurgery. Cielo, Do you have sooner appt for pt? She has appt with Dr. Rodriguez 12/27/24 but hoping to be seensooner. * Cielo Perez MA - 12/16/2024 3:15 PM EST Patient left msg on voicemail, also sent my chart message. Patient scheduled for surgery tomorrow however would like a call back from you. documented in this encounter Plan of Treatment Upcoming Encounters Date Type Department Care Team (Late st Contact Info) Description 12/26/2024 8:15 AM EST Appointment [facility] Xray [address] [place] [phone] 12/27/2024 3:15 PM EST Office Visit Neurosurgery [facility] [address] [place] [phone] Peggy Rodriguez MD [address] [place] [address] documented as of this encounter Visit Diagnoses Not on filedocumented in this encounter Care Teams Preschool Head Teacher Relationship Specialty Start Date End Date Araceli Augustin PA [address] [facility] [address] [place] [phone] PCP - General 11/20/24 documented as of this encounter
--- OUTSIDE RECORDS SUMMARY | 2024-12-24 08:59 | XMS_ITS | Encounter Summary ---
Author Organization [facility] Address [address] [place] [address] Care Team Providers Care Family Educator Name Role Phone Araceli Augustin Primary Care Provider + Reason for Visit * Reason Comments Weakness - Generalized Encounter Details Date Type Department Care Team (Late st Contact Info) Description 12/05/2024 2:30 PM EST - 12/05/2024 9:23 PM EST Emergency [facility] Emergency [address] [place] [address] Pain of right hip (Primary Dx) Discharge Disposition: Home or Self Care Social [...] Sign Reading Time Taken Comments Blood Pressure 111/76 12/05/2024 6:19 PM EST Pulse 57 12/05/2024 6:19 PM EST Temperature 36.2 ??C (97.1 ??F) 12/05/2024 12:[address] Respiratory Rate 18 12/05/2024 6:19 PM EST Oxygen Saturation 99% 12/05/2024 6:19 PM EST Inhaled Oxygen Concentration - - Weight 72.6 kg (160 lb) 12/05/2024 12:07 PM EST Height 160 cm (5' 3 ) 12/05/2024 12:07 PM EST Body Mass Index 28.34 12/05/2024 12:07 PM EST documented in this encounter Functional Status * Are you deaf or do you have serious difficulty hearing? Answer Date of Assessment Author No 12/05/2024 2:50 PM EST Monty Sharma RN * Are you blind or do you have serious difficulty seeing, even when wearing glasses? Answer Date of Assessment Author No 12/05/2024 2:50 PM Monty Rivas RN * Do you have serious difficulty walking or climbing stairs? Answer Date of Assessment Author No 12/05/2024 2:50 PM Monty Rivas RN * Do you have serious difficulty dressing or bathing? Answer Date of Assessment Author No 12/05/2024 2:50 PM Monty Rivas RN * Because of a physical, mental, or emotional condition, do you have serious difficulty doing errandsalone such as visiting the doctor? Answer Date of Assessment Author No 12/05/2024 2:50 PM Monty Rivas RN documented as of this encounter Mental Status * Because of a physical, mental, or emotional condition, do you have serious difficulty concentrating, remembering, or making decisions? (5 years old or older) Answer Entry Date Author No 12/05/2024 2:50 PM Monty Rivas RN documented in this encounter Discharge Instructions * Discharge Instructions* TL Galdamez - 12/05/2024 8:33 PM EST Medical workup in the emergency department today is generally reassuring Morphine every 4 hours as needed for severe pain Morphine may cause drowsiness, do not take if going to drink alcohol, drive vehicle or operate heavy machinery Get plenty of rest Drink plenty clear fluids Follow-up with your primary care provider Return for new or worsening symptoms I hope you feel better Thank you for coming to the [facility] Emergency Department today. Our entire team works together to provide you with the best care possible. Examination and treatment you received in the emergency department has been rendered on an EMERGENCY basis only. It is not intended to be a substitute for, or an effort to provide, complete medical care. You should follow-up with your primary care provider. Please report to your physician any new or remaining problems, because it is impossible to recognize and treat all elements of injury or illness in a single emergency department visit. If you do not have a primary care provider or require a referral, a follow-up doctor operations superintendent for the emergency department will be provided in your discharge packet. In the event that you're unable to obtain a followup appointment in a timely fashion, OR you are not getting any better, OR you are getting worse, OR you develop any symptoms of concern, please return here immediately for further evaluation. The emergency department is open 24 hours a day, 7 days aweek. Your discharge report is based on information that was available when you were in the emergency department. The x-ray readings are preliminary and will be reviewed by a radiologist in the next 24 hours. If there is a discrepancy you will be notified by phone. If you do not have a primary care provider, please contact one of the following to make arrangements to follow up. [facility] Suze Maile Suze [facility] documented in this encounter Medications at Time [...] at bedtime 120 each 11 11/20/2024 11/20/2025 documented as of this encounter Ordered Prescriptions Prescription Sig Dispense Quantity Refills Last Filled Start Date End Date oxyCODONE-acetamin ophen (PERCOCET) 10-325 mg per tabletIndications: Pain of right hip Take 1 tablet by mouth every 6 (six) hours if needed for severe pain for up to 3 days. Max Daily Amount: 4 tablets 12 tablet 12/05/2024 5 HYDROmorphone (DILAUDID) 2 mg tabletIndications: severe pain Take 1 tablet (2 mg total) by mouth every 4 (four) hours if needed for severe pain. Max Daily Amount: 12 mg 10 tablet 12/05/2024 5 morphine (MSIR) 15 mg tabletIndications: Pain of right hip Take 1 tablet (15 mg total) by mouth every 4 (four) hours if needed for severe pain for up to 3 days. Max Daily Amount: 90 mg 10 tablet 12/05/2024 5 documented in this encounter Discharge Disposition Disposition Code Departure Means Destination Comment s Home or Self Care documented in this encounter Progress Notes * Jewel Hernández MD - 12/05/2024 12:48 PM EST 59-year-old female patient presents with complaint of denies weakness as well as muscle pain all just. She states that she has been shaking nonstop. She complains of joint pain. Vital signs reviewed.She will require further evaluation in the emergency department. * Lyssa Crowe RN - 12/05/2024 12:09 PM EST Pt comes to triage with c/o something being wrong in my head . Pt states she was here about a month ago with pain and shaking and the shaking hasn't stopped. Pt reports pain everywhere and shaking. Pt amublated to triage with steady gait. A&Ox4. * TL Galdamez - 12/05/2024 11:49 AM EST Images from the original note were not included. 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 She initially complains of significant pain and points to the right hip and lower back. She reports been ongoing for about a month because of that she has gotten diffuse chills and bodyaches. There is no fevers reported. No recent traumatic injury or falls. No headaches. She then reports some generalized weakness and she expressed concern for her ability to provide self-care. She has a signific ant other at home who also can provide care to her. There is diffuse paresthesias without a focal component. No bowel or bladder incontinence versus retention. No saddle paresthesias. No cough or shortness of breath. ROS: Review of Systems Constitutional: Positive for chills and fatigue. Negative for fever. Respiratory: Negative for cough and shortness of breath. Cardiovascular: Positive for palpitations. Negative for chest pain. Gastrointestinal: Positive for nausea. Negative for constipation, diarrhea and vomiting. Genitourinary: Negative for frequency and urgency. Musculoskeletal: Negative for gait problem. Skin: Negative for rash. Neurological: Positive for weakness and numbness. Negative for syncope and headaches. Psychiatric/Behavioral: Negative for suicidal ideas. All other systems reviewed and are negative. Remaining ROS are as documented in HPI. Previous History Past Medical History: Past Medical History: Diagnosis Date Abdominal pain [...] US 06/2021 FNA pending Past Surgical History: Past Surgical History: Procedure Laterality Date BREAST BIOPSY Left 2015 b9 fibrous tissue BREAST SURGERY Left 2015 b fibrous tissue CARPAL TUNNEL RELEASE Right 01/20/2020 PROCEDURE: GA NEUROPLASTY &/TRANSPOS MEDIAN NRV CARPAL TUNNE COLONOSCOPY EYE SURGERY 1974 HERNIA REPAIR 07/28/2018 Laparoscopic repair of an incarcerated incisional hernia; Dr. Keenan ORTHOPEDIC SURGERY 1996 Left ACL OTHER SURGICAL HISTORY 12/2017 Dr. Lozano Medications: Patient's Medications New Prescriptions MORPHINE (MSIR) 15 MG TABLET Take 1 tablet (15 mg total) by mouth every 4 (four) hours if needed for severe pain for up to 3 days. Max Daily Amount: 90 mg Previous Medications ASCORBIC ACID (VITAMIN C) 250 MG TABLET Take 1 tablet (250 mg total) by mouth. CETIRIZINE (ZYRTEC) 10 MG TABLET Take 1 tablet (10 mg total) by mouth 1 (one) time each day. CHOLECALCIFEROL (VITAMIN D-3) 25 MCG (1,000 UNIT) TABLET Take 1 tablet (1,000 Units total) by mouth. CYANOCOBALAMIN (VITAMIN B-12) 1,000 MCG TABLET Take 1 tablet (1,000 mcg total) by mouth. LORAZEPAM (ATIVAN) 1 MG TABLET TAKE 1 TABLET BY MOUTH 3 TIMES A DAY IF NEEDED FOR ANXIETY FOR UP TO5 DAYS. MAX DAILY AMOUNT 3 TAB Oral for 5 Days MELATONIN 10 MG TABLET Take 1 tablet (10 mg total) by mouth. METHOCARBAMOL (ROBAXIN) 750 MG TABLET 1 tablet (750 mg total) every 4 hours. SUCRALFATE (CARAFATE) 1 GRAM TABLET Take 1 tablet (1 g total) by mouth 4 (four) times a day. Take 1hour before meals and at bedtime Modified Medications No medications on file Discontinued Medications No medications on file Allergies: Erythromycin, Clindamycin, Duloxetine hcl, and Infliximab Social and Family History: Social History Tobacco Use Smoking status: Every Day Current packs/day: 0.00 Types: Cigarettes Last attempt to quit: 07/15/2018 Years since quittin.3 Smokeless tobacco: Never Substance Use Topics Alcohol use: Not Currently Family History Problem Relation Name Age of Onset Hypertension Father Esophageal cancer, at 73 Other (Other: Hypothyroidism) Maternal Grandmother Breast cancer Neg Hx Physical Exam ED Triage Vitals [12/05/24 1207] Temp Heart Rate Resp BP 36.2 ??C (97.1 ??F) 88 20 (!) 143/106 SpO2 Temp Source Heart Rate Source Patient Position 99 % Oral Monitor -- BP Location FiO2 (%) Left arm -- Physical Exam Vitals reviewed. Constitutional: General: She is not in acute distress. Appearance: She is not toxic-appearing. HENT: Head: Normocephalic and atraumatic. Eyes: Extraocular Movements: Extraocular movements intact. Pupils: Pupils are equal, round, and reactive to light. Cardiovascular: Rate and Rhythm: Normal rate and regular rhythm. Heart sounds: No murmur heard. No friction rub. No gallop. Pulmonary: Effort: Pulmonary effort is normal. No respiratory distress. Breath sounds: Normal breath sounds. Abdominal: General: There is no distension. Palpations: Abdomen is soft. Tenderness: There is no abdominal tenderness. There is no guarding or rebound. Musculoskeletal: General: Tenderness present. Normal range of motion. Cervical back: Normal range of motion and neck supple. No rigidity. Comments: Tenderness most pronounced over the lumbar right paraspinal musculature and right hip, nofocal bony tenderness, range of motion to lower extremities appears intact, latent print examiner strength good and equal Skin: General: Skin is warm and dry. Capillary Refill: Capillary refill takes less than 2 seconds. Findings: No rash. Comments: Specifically no skin changes seen to the lower back and right hip where majority of pain is reported Neurological: General: No focal deficit present. Mental Status: She is alert and oriented to person, place, and time. ED Results: ED Labs: Labs Reviewed BASIC METABOLIC PANEL - Abnormal Result Value Sodium 139 Potassium 4.5 Chloride 106 CO2 28 Anion Gap 5 Glucose 103 (*) BUN 8 Creatinine 0.81 eGFR 85 BUN/Creatinine Ratio 9.9 Calcium 9.2 CBC WITH AUTO DIFFERENTIAL - Abnormal WBC 8.3 RBC 4.20 Hemoglobin 13.4 Hematocrit 40.3 MCV 96.6 MCH 32.1 (*) MCHC 33.3 RDW 13.5 Platelets 291 MPV 9.4 NRBC 0.0 NRBC Absolute 0.00 Neutrophils Relative 57.8 Lymphocytes Relative 32.0 Monocytes Relative 7.2 Eosinophils Relative 2.1 Basophils Relative 0.5 Immature Granulocytes Relative 0.4 Neutrophils Absolute 4.79 Lymphocytes Absolute 2.65 Monocytes Absolute 0.60 Eosinophils Absolute 0.17 Basophils Absolute 0.04 Immature Granulocytes Absolute 0.03 RESPIRATORY VIRUS PANEL [...] Detected Narrative: Testing was performed using the [employer] Respiratory Pathogen PCR Assay. All results must [...] limit of detection. MAGNESIUM - Normal Magnesium 2.2 SEDIMENTATION RATE - Normal Sed Rate 20 C-REACTIVE PROTEIN - Normal C-Reactive Protein <0.29 CREATINE KINASE - Normal Total CK 80 CBC AND DIFFERENTIAL Narrative: The following orders were created for panel order CBC and differential. Procedure Abnormality Status --------- ------ CBC auto differential[[id number]] Abnormal Final result Please view results for these tests on the individual orders. BORRELIA BURGDORFERI ANTIBODY POCT GLUCOSE, BLOOD ED Radiology: CT Chest/Abdomen/Pelvis wo Contrast Final Result 1. No acute process. 2. Bilateral pulmonary nodules. Follow-up chest CT in 6 months is recommended to confirm stability. This document has been electronically signed by: Molly Garcia MD on 12/05/2024 18:18:35 The laboratory results, imaging results and other diagnostic exam results related to this ED encounter were reviewed in the EMR. ED Procedures: Procedures ED Administered Mediations: Medications sodium chloride 0.9 % bolus 1,000 mL (0 mL intravenous Stopped 12/05/24 1822) HYDROmorphone (PF) injection 1 mg (1 mg intravenous Given 12/05/24 1535) ED Pre-Disposition Vitals: Vitals: 12/05/24 1819 BP: 111/76 Pulse: 57 Resp: 18 Temp: SpO2: 99% Differential Diagnosis Symptomatic anemia Chronic fatigue syndrome Chronic pain syndrome Viral syndrome COVID-19 Influenza Renal failure Electrolyte balance Medical Decision Making, ED Course MDM: Medical Decision Making María is a pleasant 59-year-old female with past medical history as listed above presenting todayfor multiple complaints. Initially complains of generalized weakness and fatigue, pain to the righthip and lumbar region on the right, diffuse paresthesias among others. Physical exam shows some focal tenderness to the right lumbar paraspinal musculature as well as the right hip although appears nonfocal. There is no skin changes to these regions. Retail Account Manager strength is good and equal. Will give fluids and analgesic. Lab work drawn prior to my assessment plan. Will review these. Please see ED Course below for updates regarding ED results and course of the ED visit. ED Course: ED Course as of 12/05/242111u Dec 05, 2024 1700 Workup reviewed at this time. No significant leukocytosis or left shift identified. No evidence of anemia. Electrolytes and renal function are within normal limits. Respiratory viral panel is negative. Magnesium within normal limits at 2.2. CRP is less than 0.29. Sed rate within normal limits at 20. [CC] 6153 Patient reevaluated at this time. Patient specifically requesting scans . Despite reassuring lab work and reassurance for myself, she is adamant that imaging needs to be completed. We discussedthe risks of obtaining CT including exposure to radiation. Will obtain chest and abdomen/pelvis imaging. [CC] 2021 No acute process seen on CT imaging today. Pulmonary nodules recommend outpatient follow-up. [CC] 2110 I spent a significant amount of time at the bedside talking about the workup, myriad of complaints, and reassuring workup here in the emergency department. I did make sure to highlight this is agreat environment to be seen for a general evaluation but we do not and cannot do the depth of following evaluation and outpatient resources can. She has multiple people following her and have encouraged to continue to engage with outpatient resources. She ultimately request pain medication for theshort-term treatment of her hip pain if she awaits for further answers. [employer] reviewed. [CC] ED Course User Index [CC] TL Galdamez Clinical Impressions as of 12/05/242111 Pain of right hip ED Prescriptions: ED Prescriptions Medication Sig Dispense Start Date End Date Auth. Provider morphine (MSIR) 15 mg tablet Take 1 tablet (15 mg total) by mouth every 4 (four) hours if needed for severe pain for up to 3 days. Max Daily Amount: 90 mg 10 tablet 12/05/2024 12/08/2024 TL Galdamez Disposition: Discharge Condition: Stable Diagnosis / Impression: Final diagnoses: [M25.551] Pain of right hip Provider Attestation Electronically signed by TL Galdamez-C TL Galdamez 12/05/24 1526 TL Galdamez 12/05/242111 Cosigned by Flavio Hutchins DO at 12/05/2024 9:14 PM EST documented in this encounter Plan of Treatment Upcoming Encounters Date Type Department Care Team (Late st Contact Info) Description 12/26/2024 8:15 AM EST Appointment [facility] Xray [address] [place] [phone] 12/27/2024 3:15 PM EST Office Visit Neurosurgery [facility] [address] [phone] Peggy Leon MD [address] [place] [address] Scheduled Orders Name Type Priority Associated Diagnoses Orde r Schedule ECG 12 lead ECG STAT Once for 1 Oc currences starting 12/05/2024 until 12/05/2024 documented as of this encounter Procedures Procedure Name Priority Date/Time Associated Diagnosis Comments CT CHEST/ABDOMEN/PELVIS WO CONTRAST STAT 12/05/2024 6:00 PM EST RESPIRATORY VIRUS PANEL MOLECULAR STUDY STAT 12/05/2024 3:43 PM EST CBC WITH AUTO DIFFERENTIAL STAT 12/05/2024 1:30 PM EST BORRELIA BURGDORFERI ANTIBODY STAT 12/05/2024 1:30 PM EST SEDIMENTATION RATE STAT 12/05/2024 1: 30 PM EST CBC AND DIFFERENTIAL STAT 12/05/2024 1:30 PM EST C-REACTIVE PROTEIN STAT 12/05/2024 1: 30 PM EST MAGNESIUM STAT 12/05/2024 1:30 PM EST CREATINE KINASE STAT 12/05/2024 1:30 PM EST BASIC METABOLIC PANEL STAT 12/05/2024 1:30 PM EST documented in this encounter Results * CT Chest/Abdomen/Pelvis wo Contrast (12/05/2024 6:00 PM EST) Anatomical Region Laterality Modality Body Computed Tomogra phy 12/05/2024 6:18 PM EST Impressions 12/05/2024 6:18 PM EST 1. No acute process. 2. Bilateral pulmonary nodules. Follow-up chest CT in 6 months is recommended to confirm stability. This document has been electronically signed by: Molly Garcia MD on 12/05/2024 18:18:35 Narrative 12/05/2024 6:[address] chest, abdomen and pelvis without contrast Comparison: None Findings: The heart is normal size. The visualized thyroid and mediastinum are unremarkable. No consolidation or effusion. There are a few small bilateral pulmonary nodules. For example, there is a subpleural nodule measuring 6 mm within the right upper lobe posteriorly (image 44), as well as the 5 mm left apical nodule ( image 27). The gallbladder is surgically absent. No bowel obstruction, pneumoperitoneum, or pneumatosis. Pelvic contents unremarkable. Normal appendix. The bones are intact. Procedure Note Molly Garcia MD - 12/05/2024 CT chest, abdomen and pelvis without contrast Comparison: None Findings: The heart is normal size. The visualized thyroid and mediastinum are unremarkable. No consolidation or effusion. There are a few small bilateral pulmonary nodules. For example, there is a subpleural nodule measuring 6 mm within the right upper lobe posteriorly (image 44), as well as the 5 mm left apical nodule ( image 27). The gallbladder is surgically absent. No bowel obstruction, pneumoperitoneum, or pneumatosis. Pelvic contents unremarkable. Normal appendix. The bones are intact. IMPRESSION: 1. No acute process. 2. Bilateral pulmonary nodules. Follow-up chest CT in 6 months is recommended to confirm stability. This document has been electronically signed by: Molly Garcia MD on 12/05/2024 18:18:[address] PROCEDURES Final R esult * Respiratory virus panel molecular study (12/05/2024 3:43 PM EST) Adenovirus Detection by PCR Not Detected Not Detected LAB MICROBIOLOGY METHOD 12/05/2024 4:51 PM EST [facility] Influenza A PCR Not Detected Not Detected LAB MICROBIOLOGY METHOD 12/05/2024 4:51 PM EST [facility] Influenza B PCR Not Detected Not Detected LAB MICROBIOLOGY METHOD 12/05/2024 4:51 PM EST [facility] Coronavirus 229E Not Detected Not Detected LAB MICROBIOLOGY METHOD 12/05/2024 4:51 PM EST [facility] Coronavirus HKU1 Not Detected Not Detected LAB MICROBIOLOGY METHOD 12/05/2024 4:51 PM EST [facility] Coronavirus OC43 Not Detected Not Detected LAB MICROBIOLOGY METHOD 12/05/2024 4:51 PM [facility] Coronavirus NL63 Not Detected Not Detected LAB MICROBIOLOGY METHOD 12/05/2024 4:51 PM [facility] Parainfluenza Virus 1 Not Detected Not Detected LAB MICROBIOLOGY METHOD 12/05/2024 4:51 PM [facility] Parainfluenza Virus 2 Not Detected Not Detected LAB MICROBIOLOGY METHOD 12/05/2024 4:51 PM [facility] Parainfluenza Virus 3 Not Detected Not Detected LAB MICROBIOLOGY METHOD 12/05/2024 4:51 PM [facility] Parainfluenza Virus 4 Not Detected Not Detected LAB MICROBIOLOGY METHOD 12/05/2024 4:51 PM [facility] RSV PCR Not Detected Not Detected LAB MICROBIOLOGY METHOD 12/05/2024 4:51 PM [facility] Human Metapneumovirus A and B Not Detected Not Detected LAB MICROBIOLOGY METHOD 12/05/2024 4:51 PM [facility] Rhinovirus/Entero virus Not Detected Not Detected LAB MICROBIOLOGY METHOD 12/05/2024 4:51 PM [facility] Bordetella pertussis Not Detected Not Detected LAB MICROBIOLOGY METHOD 12/05/2024 4:51 PM [facility] Bordetella parapertussis Not Detected Not Detected LAB MICROBIOLOGY METHOD 12/05/2024 4:51 PM [facility] Mycoplasma pneumo by PCR Not Detected Not Detected LAB MICROBIOLOGY METHOD 12/05/2024 4:51 PM [facility] Chlamydia pneumoniae Not Detected Not Detected LAB MICROBIOLOGY METHOD 12/05/2024 4:51 PM [facility] SARS COV-2 Not Detected Not Detected LAB MICROBIOLOGY METHOD 12/05/2024 4:51 PM [facility] Swab Both anterior nares / Unknown Non-blood Collection / Unknown 12/05/2024 3:43 PM EST 12/05/2024 3:51 PM EST Narrative [facility] - 12/05/2024 4:51 PM EST Testing was performed using the [employer] Respiratory Pathogen PCR Assay. All results must [...] are below the limit of detection. us Shay BOOTHE LAB MICROBIOLOGY - GENERA L ORDERABLES Final Result Performing Organization Address [facility]/ZIP Co de Phone Number [facility] [address] [place] [address], * Creatine kinase (12/05/2024 1:30 PM EST) Pathologist [facility] Total CK 80 22 - 269 unit/L LAB CHEMISTRY METHOD 12/05/2024 2:05 PM EST [facility] Blood Venous blood specimen / Unknown Venipuncture / Unknown 12/05/2024 1:30 PM EST 12/05/2024 1:39 PM EST us Jewel Hernández MD LAB BLOOD ORDERABLES Final Resu lt Performing Organization Address City/[facility]/ZIP Co de Phone Number [facility] [address] [place] [address], [place] [phone] * C-reactive protein (12/05/2024 1:30 PM EST) C-Reactive Protein <0.29 <=0.50 mg/dL LAB CHEMISTRY METHOD 12/05/2024 2:05 PM EST [facility] Blood Venous blood specimen / Unknown Venipuncture / Unknown 12/05/2024 1:30 PM EST 12/05/2024 1:39 PM EST us Jewel Hernández MD LAB BLOOD ORDERABLES Final Resu lt Performing Organization Address [facility]/ZIP Co de Phone Number [facility] [address] [place] [address], [place] [phone] * Sedimentation rate, automated (12/05/2024 1:30 PM EST) [facility] Sed Rate 20 0 - 30 mm/hr LAB HEMETOLOGY METHOD 12/05/2024 1:59 PM EST [facility] Blood Venous blood specimen / Unknown Venipuncture / Unknown 12/05/2024 1:30 PM EST 12/05/2024 1:39 PM EST us Jewel Hernández MD LAB BLOOD ORDERABLES Final Resu lt Performing Organization Address [facility] Phone Number [facility] [address] [place], [place] [address], [place] [phone] * Borrelia burgdorferi antibody (12/05/2024 1:30 PM EST) [facility] Lyme Ab Negative Negative LAB CHEMISTRY METHOD 12/06/2024 9:08 AM EST [facility] Comment: No laboratory evidence of infection with B. burgdorferi (Lyme disease). Negative results may occur in patients recently infected (<=14 days) with B. burgdorferi. ??If recent infection is suspected, repeat testing on a new sample collected in 7-14 days is recommended. Blood Venous blood specimen / Unknown Venipuncture / Unknown 12/05/2024 1:30 PM EST 12/05/2024 1:39 PM EST us Jewel Hernández MD LAB BLOOD ORDERABLES Final Resu lt Performing Organization Address [facility] de Phone Number [facility] [address] [place] [address], [place] [phone] * (ABNORMAL) CBC auto differential (12/05/2024 1:30 PM EST) [facility] WBC 8.3 4.8 - 10.8 K/mcL LAB HEMETOLOGY METHOD 12/05/2024 1:51 PM [facility] RBC 4.20 3.80 - 4.80 M/mcL LAB HEMETOLOGY METHOD 12/05/2024 1:51 PM [facility] Hemoglobin 13.4 11.5 - 16.0 g/dL LAB HEMETOLOGY METHOD 12/05/2024 1:51 PM [facility] Hematocrit 40.3 35.0 - 47.0 % LAB HEMETOLOGY METHOD 12/05/2024 1:51 PM [facility] MCV 96.6 79.0 - 98.0 FL LAB HEMETOLOGY METHOD 12/05/2024 1:51 PM [facility] MCH 32.1(H) 27.0 - 32.0 pcg LAB HEMETOLOGY METHOD 12/05/2024 1:51 PM [facility] MCHC 33.3 32.0 - 37.0 g/dL LAB HEMETOLOGY METHOD 12/05/2024 1:51 PM [facility] RDW 13.5 11.0 - 15.0 % LAB HEMETOLOGY METHOD 12/05/2024 1:51 PM [facility] Platelets 291 130 - 400 K/mcL LAB HEMETOLOGY METHOD 12/05/2024 1:51 PM [facility] MPV 9.4 7.0 - 11.0 FL LAB HEMETOLOGY METHOD 12/05/2024 1:51 PM [facility] NRBC 0.0 <1.0 % LAB HEMETOLOGY METHOD 12/05/2024 1:51 PM [facility] NRBC Absolute 0.00 <0.10 K/[facility] LAB HEMETOLOGY METHOD 12/05/2024 1:51 PM [facility] Neutrophils Relative 57.8 % LAB HEMETOLOGY METHOD 12/05/2024 1:51 PM [facility] Lymphocytes Relative 32.0 % LAB HEMETOLOGY METHOD 12/05/2024 1:51 PM [facility] Monocytes Relative 7.2 % LAB HEMETOLOGY METHOD 12/05/2024 1:51 PM [facility] Eosinophils Relative 2.1 % LAB HEMETOLOGY METHOD 12/05/2024 1:51 PM [facility] Basophils Relative 0.5 % LAB HEMETOLOGY METHOD 12/05/2024 1:51 PM [facility] Immature Granulocytes Relative 0.4 % LAB HEMETOLOGY METHOD 12/05/2024 1:51 PM [facility] Neutrophils Absolute 4.79 1.50 - 7.00 K/mcL LAB HEMETOLOGY METHOD 12/05/2024 1:51 PM [facility] Lymphocytes Absolute 2.65 1.00 - 5.00 K/mcL LAB HEMETOLOGY METHOD 12/05/2024 1:51 PM [facility] Monocytes Absolute 0.60 0.20 - 1.00 K/mcL LAB HEMETOLOGY METHOD 12/05/2024 1:51 PM [facility] Eosinophils Absolute 0.17 0.00 - 0.50 K/mcL LAB HEMETOLOGY METHOD 12/05/2024 1:51 PM [facility] Basophils Absolute 0.04 0.00 - 0.20 K/mcL LAB HEMETOLOGY METHOD 12/05/2024 1:51 PM [facility] Immature Granulocytes Absolute 0.03 0.00 - 0.03 K/mcL LAB HEMETOLOGY METHOD 12/05/2024 1:51 PM [facility] Blood Venous blood specimen / Unknown Venipuncture / Unknown 12/05/2024 1:30 PM EST 12/05/2024 1:39 PM EST Stephanie Nina LAB BLOOD ORDERABLES Nataliia l Result Performing Organization Address City/[facility]/ZIP Co de Phone Number [facility] [address] [place] [address], [place] [phone] * Magnesium (12/05/2024 1:30 PM EST) Pathologist [facility] Magnesium 2.2 1.9 - 2.6 mg/dL LAB CHEMISTRY METHOD 12/05/2024 2:05 PM [facility] Blood Venous blood specimen / Unknown Venipuncture / Unknown 12/05/2024 1:30 PM EST 12/05/2024 1:39 PM EST [facility] Austen Nina LAB BLOOD ORDERABLES Nataliia l Result Performing Organization Address [facility]/ZIP Co de Phone Number [facility] [address] [place] [address], [place] [phone] * (ABNORMAL) Basic metabolic panel (12/05/2024 1:30 PM EST) [facility] Sodium 139 133 - 145 mmol/L LAB CHEMISTRY METHOD 12/05/2024 2:05 PM [facility] Potassium 4.5 3.5 - 5.5 mmol/L LAB CHEMISTRY METHOD 12/05/2024 2:05 PM [facility] Chloride 106 96 - 110 mmol/L LAB CHEMISTRY METHOD 12/05/2024 2:05 PM [facility] CO2 28 21 - 32 mmol/L LAB CHEMISTRY METHOD 12/05/2024 2:05 PM [facility] Anion Gap 5 3 - 11 LAB CHEMISTRY METHOD 12/05/2024 2:05 PM [facility] Glucose 103(H) 70 - 100 mg/dL LAB CHEMISTRY METHOD 12/05/2024 2:05 PM [facility] BUN 8 5 - 25 mg/dL LAB CHEMISTRY METHOD 12/05/2024 2:05 PM EST [facility] Creatinine 0.81 0.50 - 1.10 mg/dL LAB CHEMISTRY METHOD 12/05/2024 2:05 PM EST [facility] eGFR 85 >=60 mL/min/1. 73m2 LAB CHEMISTRY METHOD 12/05/2024 2:05 PM EST [facility] Comment:Calculation based on the??Chronic Kidney Disease Epidemiology Collaboration (CKD-EPI) equation refit??without adjustment for race. BUN/Creatinine Ratio 9.9 LAB CHEMISTRY METHOD 12/05/2024 2:05 PM [facility] Calcium 9.2 8.5 - 10.5 mg/dL LAB CHEMISTRY METHOD 12/05/2024 2:05 PM [facility] Blood Venous blood specimen / Unknown Venipuncture / Unknown 12/05/2024 1:30 PM EST 12/05/2024 1:39 PM EST us Swapnil Austen Nina DO LAB BLOOD ORDERABLES Nataliia l Result [facility] [address] [place] [address], documented in this encounter Visit Diagnoses Diagnosis Pain of right hip- Primary documented in this encounter Administered Medications Inactive Administered Medications - up to 3 most recent administrations Medication Order MAR Action Action Date Dose Rate Site HYDROmorphone (PF) injection 1 mg 1 mg, intravenous, Once, On Bessie 12/05/24 at 1516, For 1 dose Given 12/05/2024 3:35 PM EST 1 mg sodium chloride 0.9 % bolus 1,000 mL 1,000 mL, intravenous, at 2,000 mL/hr, Administer over 30 Minutes, Once, On Bessie 12/05/24 at 1516, For 1 dose New Bag 12/05/2024 3:36 PM EST 1,000 mL 2000 mL/hr documented in this encounter Discontinued Medications Medication Sig Discontinue Reason Start Date End Da te morphine (MSIR) 15 mg tabletIndications:Pain of right hip Take 1 tablet (15 mg total) by mouth every 4 (four) hours if needed for severe pain for up to 3 days. Max Daily Amount: 90 mg Prescriber Discontinued 12/05/2024 12/05/2024 HYDROmorphone (DILAUDID) 2 mg tabletIndications:azalia re pain Take 1 tablet (2 mg total) by mouth every 4 (four) hours if needed for severe pain. Max Daily Amount: 12 mg 12/05/2024 12/05/2024 documented as of this encounter Active and Recently Administered Medications Times are shown in EST. Scheduled Medication Order 12/03/2024 12/04/2024 12/05/2024 HYDROmorphone (PF) injection 1 mg (COMPLETED) 1 mg, intravenous, Once, On Bessie 12/05/24 at 1516, For 1 dose 1535 (Given - Provid er: Leola Sharma RN) sodium chloride 0.9 % bolus 1,000 mL (COMPLETED) 1,000 mL, intravenous, at 2,000 mL/hr, Administer over 30 Minutes, Once, On Bessie 12/05/24 at 1516, For 1 dose 1536 (New Bag - Prov ider: Leola Sharma RN)[id number] (Stopped - Provider: Leola Sharma RN) documented in this encounter Additional Health Concerns Infection Onset Date Last Indicated Resolved Time Respiratory Rule-Out 12/05/2024 12/05/2024 025 4:51 PM EST documented as of this encounter Care Teams Family Educator Relationship Specialty Start Date End Date Araceli Augustin PA [address] [place] [phone] PCP - General 11/20/24 documented as of this encounter
--- OUTSIDE RECORDS SUMMARY | 2024-12-24 09:00 | XMS_ITS | Clinical Summary ---
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 Active cetirizine (ZyrTEC) 10 mg tablet Take 1 tablet (10 mg total) by mouth 1 (one) time each day. 05/14/20 24 Active cholecalcifero l (VITAMIN D-3) 25 mcg (1,000 unit) tablet Take 1 tablet (1,000 Units total) by mouth. Active melatonin 10 mg tablet Take 1 tablet (10 mg total) by mouth. Active cyanocobalamin (VITAMIN B-12) 1,000 mcg tablet Take 1 tablet (1,000 mcg total) by mouth. Active methocarbamoL (ROBAXIN) 750 mg tablet 1 tablet (750 mg total) every 4 hours. Active LORazepam (ATIVAN) 1 mg tablet TAKE 1 TABLET BY MOUTH 3 TIMES A DAY IF NEEDED FOR ANXIETY FOR UP TO 5 DAYS. MAX DAILY AMOUNT 3 TAB Oral for 5 Days Active sucralfate (CARAFATE) 1 gram tablet Take 1 tablet (1 g total) by mouth 4 (four) times a day. Take 1 hour before meals and at bedtime 120 each 11 11/20/19 25 026 Active morphine (MSIR) 15 mg tabletIndicati ons:Pain of right hip Take 1 tablet (15 mg total) by mouth every 4 (four) hours if needed for severe pain for up to 3 days. Max Daily Amount: 90 mg 10 tablet 12/05/19 25 025 Discontinued(Pr escriber Discontinued) HYDROmorphone (DILAUDID) 2 mg tabletIndicati ons:severe pain Take 1 tablet (2 mg total) by mouth every 4 (four) hours if needed for severe pain. Max Daily Amount: 12 mg 10 tablet 12/05/19 25 025 Discontinued oxyCODONE-acet aminophen (PERCOCET) 10-325 mg per tabletIndicati ons:Pain of right hip Take 1 tablet by mouth every 6 (six) hours if needed for severe pain for up to 3 days. Max Daily Amount: 4 tablets 12 tablet 12/05/19 25 025 traMADoL (ULTRAM) 50 mg tablet Take 1 tablet (50 mg total) by mouth every 6 (six) hours if needed for severe pain for up to 3 days. Max Daily Amount: 200 mg 5 tablet 12/14/19 25 025 Active Problems Problem Noted Date Diagnosed Date Cervical spondylosis 11/05/2024 Assessment & Plan (11/07/2024 9:55 AM EST): Patient states symptoms started about 2 months ago with twitching in her right elbow area and over time has progressed to shaking in both arms. She notes numbness in the right hand, history of right carpal tunnel release 2018. She also experiences pain in the forearms L >R, anterior arm pain that she would rate 4-5/10 through the day, she describes right wrist pain. No specific inciting event, other than patient reporting this could be related to starting Lexapro 2 months ago. She describes hearing cracking in her neck with movement, but denies neck pain. She denies any balance or vision issues. She also reports 6 months of tingling in the left face and pain over her nose, occasionally pain on the right side of her head. She is not sure if this is related to a sinus infection she had with COVID 6 months ago. Patient has been on gabapentin for approximately 2 weeks, also takes Ativan as needed. She denies any liver disease. She has had fairly thorough blood work (Lyme titer negative, CPK normal), was positive RA factor, patient states diagnosed with RA in 2019, currently not on medical treatment, in the past was on Humira (patient states she stopped Humira because she did not have joint changes from the RA). Another thing that has been contributing to her stress/pain this year is that she has slipped rib syndrome, reports being in the emergency room about 30 times for this, is currently seeing 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 at [facility], had injection in the right lower rib, she may be having surgery for this. Recently seen in ortho for right shoulder bursitis, currently pain a bit better now. Patient had C-spine MRI 06/24/2024 that showed severe bilateral foraminal stenosis C5-6, moderate right C6-7, no central stenosis, no signal change in the spinal cord. Degenerative disc changes C4-5, C5-6 >C6-7. I reviewed MRI images in detail with the patient on the computer. Ms. Phillips has C5-6 bilateral foraminal stenosis >right C6-7 foraminal stenosis. I explained to her this can cause some pain in the arms, but would not be responsible for twitching/tremor, on exam reflexes WNL, no hyperreflexia and no cord compression on MRI. Patient has EMG scheduled 11/20/2024, I will review results and MRI with Dr. Leon. Patient plans to call provider that prescribed her the Lexapro about 2 months ago, see if it would be safe to stop it temporarily to see if there is improvement in the arm shaking. We talked about conservative treatment options, like physical therapy (they can also try gentle traction for the foraminal stenosis), which patient is interested in and prescription given, as well as acupuncture, name provided. We will follow-up after her EMG is completed. All questions answered, I asked her to call with any worsening symptoms, questions or concerns. 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 With resultant bursitis/capsulitis, treated with injections. Dr. Castillo Incisional hernia, without obstruction or gangre ne 08/02/2018 Sebaceous cyst 06/21/2018 Abnormal mammogram of left breast 07/18/2016 Encounters Date Type Department Care Team Description 12/16/2024 Telephone Neurosurgery [facility] [address] [facility] [address] [place] [address] Kanika Perez MA 12/14/2024 2:01 PM EST - 12/14/2024 9:20 PM EST Emergency [facility] Emergency [address] [place] [address] Acute bilateral low back pain, unspecified whether sciatica present (Primary Dx); Tingling in extremities Discharge Disposition: Home or Self Care 12/05/2024 2:30 PM EST - 12/05/2024 9:23 PM EST Emergency [facility] Emergency [address] [place] [phone] Pain of right hip (Primary Dx) Discharge Disposition: Home or Self Care 11/27/2024 Telephone Orthopedic Surgery [facility] [address] [facility] [address] [place] [phone] Nichelle Archibald PA Arm Pain 11/20/2024 8:40 AM EST Office Visit Gastroenterology [facility] 175 [facility] [address] [facility] [address] [place] [address] Rajan Sanders PA Slipped rib syndrome (Primary Dx); Right flank pain; Globus sensation; Epigastric pain; Passage of loose stools 11/20/2024 Telephone Gastroenterology [facility] 175 [facility] 175 [facility] [address] [place] [phone] Rajan Sanders PA 11/20/2024 Telephone Gastroenterology [facility] 175 [facility] 175 [facility] [address] [place] [address] Rajan Sanders PA Medication Problem 11/20/2024 Telephone Gastroenterology [facility] [address] [facility] [address] [facility] [address] [place] [phone] Rajan Sanders PA 11/20/2024 Telephone Gastroenterology [facility] 175 [facility] [address] [phone] Rajan Sanders PA Prior Authorization 11/19/2024 Telephone Neurosurgery [facility] [address] [facility] [address] [place] [address] Vanesa Lebron PA 11/18/2024 12:22 PM EST - 11/18/2024 11:59 PM EST Hospital Encounter [facility] Neurodiagnostic [address] [place] [phone] Paresthesias in right hand; Neck pain Discharge Disposition: Home or Self Care 11/18/2024 12:22 PM EST - 11/18/2024 11:59 PM EST Hospital Encounter [facility] Xray [address] [place] [phone] Chest pain, unspecified; Pain in right arm; Paresthesia of skin Discharge Disposition: Home or Self Care 11/18/2024 Telephone Orthopedic Surgery [facility] [address] [facility] [address] [place] [address] Nichelle Archibald PA 11/11/2024 10:45 AM EST Office Visit Orthopedic [facility] [address] [facility] [address] [place] [address] Nichelle Archibald PA Pain in both upper extremities (Primary Dx) 11/05/2024 2:30 PM EST Consult Neurosurgery [facility] [address] [facility] [address] [place] [address] Vanesa Lebron PA Cervical spondylosis (Primary Dx); Paresthesias in right hand 10/26/2024 7:56 AM EST - 10/26/2024 2:26 PM EST Emergency [facility] Emergency [address] [place] [address] Axel Wiley MD Tremors of nervous system (Primary Dx) Discharge Disposition: Home or Self Care 10/25/[address] [phone] Lee Garcia MD lab work 10/09/2024 7:37 PM EST - 10/09/2024 8:28 PM EST Emergency [facility] Emergency [address] [place] [address] Discharge Disposition: Home or Self Care 10/01/2024 3:45 PM EST Office Visit Orthopedic [facility] [address] [facility] [address] [place] [phone] Nichelle Archibald PA Bursitis of right shoulder (Primary Dx); Right elbow pain; Paresthesias in right hand; Neck pain 09/24/2024 11:07 AM EST - 09/24/2024 11:59 PM EST Hospital Encounter [facility] Xray [address] [place] [address] Sacroiliitis, not elsewhere classified (CMS/HCC) Discharge Disposition: Home or Self Care from Last 3 Months Immunizations Name Administration Dates Next Due Hepatitis B (Baakkby-R-Lztfb , Recombivax HB-Adult) 19yo and older 02/21/2022,01/17/2022 Influenza Quadravalent, MDCK , 0.5ml, preservative free (Flucelvax) 6mo and older 07/28/2023 Influenza trivalent, with preservative (Fluzone; Afluria) 6mo and older 09/19/2022,08/02/2021,09/23/2020,2019 PPD Test 06/01/2015 Pfizer (ages 12 & older) ENMANUEL S-CoV-2 COVID-19, mRNA, LNP-S, trey-sucrose, preservative free 02/02/2022 Pfizer SARS-CoV-2 COVID-19, mRNA, LNP-S, preservative free 07/05/2021,06/24/2021 Tdap Tetanus diptheria acell ular pertussis (Boostrix; Adacel) 7yo and older 01/09/2019,06/01/2015 Surgical History Surgery Date Site/Laterality Comments EYE SURGERY 1974 ORTHOPEDIC SURGERY 1995 Left ACL OTHER SURGICAL HISTORY 12/2017 Dr. Schafer HERNIA REPAIR 07/28/2018 Laparoscopic repair of an incarcerated incisional hernia; Dr. Keenan BREAST BIOPSY 2016 Left b9 fibrous tissue BREAST SURGERY 2016 Left b9 fibrous tissue CARPAL TUNNEL RELEASE 01/20/2020 Right PROCEDURE: SD NEUROPLASTY &/TRANSPOS MEDIAN NRV CARPAL TUNNE COLONOSCOPY OTHER SURGICAL HISTORY 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 [facility] Medical History Medical History Date Comments Anxiety Treated with Klo nopin in the past. Does not want to have narcotics or addictions. History of actinic keratoses 03/19/2019 Act inic keratoses 03/24 right cheek (lichenoid) Carpal tunnel syndrome 01/23/202001/2020 st eroid injection left, endoscopic release right Rheumatoid arthritis (CMS/HCC) 12/25/2020 Thyroid nodule 07/05/2021 US 06/2021 FNA pe nding Abdominal pain Epigastric pain Throat pain Change in bowel habits Depressive disorder Post-traumatic osteoarthriti s of left knee 10/03/2023 Dysphagia Globus sensation Decreased appetite Family History Medical History Relation Name Comments Hypertension Father Esophageal canc er, at 73 Other: Hypothyroidism Maternal Grandmother Breast cancer Neg Hx Relation Name Status Comments Father Maternal Grandmother Social History Tobacco Use Types Packs/Day Years Used Date Smoking Tobacco: Every Day Cigarettes Last attempted to quit: 07/15/2018 Smokeless Tobacco: Never Tobacco Cessation:Ready to Q uit: Not Asked; Counseling Given: Not Answered Alcohol Use Standard Drinks/Week Comments Not Currently 0 (1 standard drink = 0.6 oz pur e alcohol) Comments No Sex and Gender Information Value Date Recorded Sex Assigned at Female 10/26/2024 8:32 AM EST Legal Sex Female 3:55 AM EST Gender Identity Female 10/26/2024 8:32 AM EST Sexual Orientation Not on file Obstetrics History Last Filed Vital Signs Vital Sign Reading [...] Mass Index 27.46 12/14/2024 10:17 AM EST Plan of Treatment Upcoming Encounters Date Type Department Care Team (Late st Contact Info) Description 12/26/2024 8:15 AM EST Appointment [facility] Xray [address] [place] [phone] 12/27/2024 3:15 PM EST Office Visit Neurosurgery [facility] [address] [phone] Peggy Leon MD [address] [place] [address] Health Maintenance Due Date Last Done Comments Zoster Vaccines (1 of 2) 2017 Hepatitis B Vaccines (3 of 3 - 19+ 3-dose series) 07/20/2022 02/21/2022, 01/17/2022 Colorectal Cancer Screening: Stool Based Tests (FOBT/FIT) 10/09/2022 Depression Screening 10/09/2022 Social Influencers of Health Screening 10/09/2022 COVID-19 Vaccine ( season) 2024 02/02/2022, 07/05/2021, 06/24/2021, Additional history exists Breast Cancer Screening 06/05/2025 06/05/20, 02/27/2019, 07/26/2017 Cervical Cancer Screening: HPV 07/20/2028 07/20/2023 DTaP,Tdap,and Td Vaccines (3 - Td or Tdap) 01/09/2029 01/09/2019, 06/01/2015 Cholesterol Screening (Lipid Panel) 10/28/2029 10/28/2024, 11/09/2023 Colorectal Cancer Screening: Colonoscopy Discontinued 08/15/2023 HIV Screening Completed 05/20/2024 Hepatitis C Screening Completed 05/20/2024, 024 Influenza Vaccine Completed 11/21/2024, , 09/19/2022, Additional history exists Pneumococcal Vaccine: 50+ Years Completed 11/21/2024 Pneumococcal Vaccine: Pediatrics (0 to 5 Years) and At-Risk Patients (6 to 64 Years) Completed 11/21/2024 HIB Vaccines Aged Out No longer eligi ble based on patient's age to complete this topic HPV Vaccines Aged Out No longer eligi ble based on patient's age to complete this topic Hepatitis A Vaccines Aged Out No long er eligible based on patient's age to complete this topic IPV Vaccines Aged Out No longer eligi ble based on patient's age to complete this topic MMR Vaccines Aged Out No longer eligi ble based on patient's age to complete this topic Meningococcal ACWY Vaccine Aged Out N o longer eligible based on patient's age to complete this topic Meningococcal B Vacine Aged Out No lo nger eligible based on patient's age to complete this topic RSV Immunization Patients Under 20 months Aged Out No longer eligible based on patient's age to complete this topic Varicella Vaccines Aged Out No longer eligible based on patient's age to complete this topic Procedures Procedure Name Priority Date/Time Associated Diagnosis Comments XR LUMBAR SPINE 2-3 VIEWS STAT 12/14/2024 8:26 PM EST [facility] URINE CULTURE TUBE STAT 12/14/2024 5:16 PM EST URINALYSIS WITH REFLEX MICROSCOPIC AND CULTURE STAT 12/14/2024 5:16 PM EST URINALYSIS WITH REFLEX MICROSCOPIC AND CULTURE STAT 12/14/2024 5:[address] HEAD WO CONTRAST STAT 12/14/2024 4 :54 PM EST ECG 12-LEAD STAT 12/14/2024 4:37 PM EST RESPIRATORY VIRUS PANEL MOLECULAR STUDY STAT 12/14/2024 4:28 PM EST PHOSPHORUS STAT Add-on 12/14/2024 12:01 PM EST CBC WITH AUTO DIFFERENTIAL STAT 12/14/2024 12:01 PM EST MAGNESIUM STAT 12/14/2024 12:01 PM EST BASIC METABOLIC PANEL STAT 12/14/2024 12:01 PM EST CBC AND DIFFERENTIAL STAT 12/14/2024 12:01 PM EST ECG ANNOTATED 12/14/2024 CT CHEST/ABDOMEN/PELVIS WO CONTRAST STAT 12/05/2024 6:00 PM EST RESPIRATORY VIRUS PANEL MOLECULAR STUDY STAT 12/05/2024 3:43 PM EST CREATINE KINASE STAT 12/05/2024 1:30 PM EST C-REACTIVE PROTEIN STAT 12/05/2024 1: 30 PM EST SEDIMENTATION RATE STAT 12/05/2024 1: 30 PM EST BORRELIA BURGDORFERI ANTIBODY STAT 12/05/2024 1:30 PM EST CBC WITH AUTO DIFFERENTIAL STAT 12/05/2024 1:30 PM EST MAGNESIUM STAT 12/05/2024 1:30 PM EST BASIC METABOLIC PANEL STAT 12/05/2024 1:30 PM EST CBC AND DIFFERENTIAL STAT 12/05/2024 1:30 PM EST EMG 1 LIMB Routine 11/18/2024 1:17 PM EST Paresthesias in right hand Neck pain XR CERVICAL SPINE 4-5 VIEWS Routine 11/18/2024 12:43 PM EST Chest pain, unspecified Pain in right arm Paresthesia of skin CT LUMBAR SPINE WO CONTRAST Routine 11/02/2024 3:[address] ABDOMEN W CONTRAST Routine 11/02/2024 3:08 PM EST XR HIPS 2 VIEWS WO OR W PELVIS BILAT Routine 11/02/2024 3:06 PM EST CBC WITH AUTO DIFFERENTIAL Routine 10/28/2024 2:36 PM EST Atrophic arthritis (CMS/HCC) Routine general medical examination at a health care facility Screening for lipoid disorders Screening for diabetes mellitus Screening for thyroid disorder Avitaminosis D C REACTIVE PROTEIN, HIGH SENSITIVITY Routine 10/28/2024 2:36 PM EST Atrophic arthritis (CMS/HCC) Routine general medical examination at a health care facility Screening for lipoid disorders Screening for diabetes mellitus Screening for thyroid disorder Avitaminosis D SEDIMENTATION RATE Routine 10/28/2024 2: 36 PM EST Atrophic arthritis (CMS/HCC) Routine general medical examination at a health care facility Screening for lipoid disorders Screening for diabetes mellitus Screening for thyroid disorder Avitaminosis D RHEUMATOID FACTOR Routine 10/28/2024 2:3 6 PM EST Atrophic arthritis (CMS/HCC) Routine general medical examination at a health care facility Screening for lipoid disorders Screening for diabetes mellitus Screening for thyroid disorder Avitaminosis D CAMILO IFA WITH TITER AND PATTERN Routine 10/28/2024 2:36 PM EST Atrophic arthritis (CMS/HCC) Routine general medical examination at a health care facility Screening for lipoid disorders Screening for diabetes mellitus Screening for thyroid disorder Avitaminosis D FERRITIN Routine 10/28/2024 2:36 PM EST Atrophic arthritis (CMS/HCC) Routine general medical examination at a health care facility Screening for lipoid disorders Screening for diabetes mellitus Screening for thyroid disorder Avitaminosis D IRON AND TIBC Routine 10/28/2024 2:36 PM EST Atrophic arthritis (CMS/HCC) Routine general medical examination at a health care facility Screening for lipoid disorders Screening for diabetes mellitus Screening for thyroid disorder Avitaminosis D THYROID STIMULATING HORMONE Routine 10/28/2024 2:36 PM EST Atrophic arthritis (CMS/HCC) Routine general medical examination at a health care facility Screening for lipoid disorders Screening for diabetes mellitus Screening for thyroid disorder Avitaminosis D VITAMIN D 25 HYDROXY Routine 10/28/2024 2:36 PM EST Atrophic arthritis (CMS/HCC) Routine general medical examination at a health care facility Screening for lipoid disorders Screening for diabetes mellitus Screening for thyroid disorder Avitaminosis D HEMOGLOBIN A1C Routine 10/28/2024 2:36 PM EST Atrophic arthritis (CMS/HCC) Routine general medical examination at a health care facility Screening for lipoid disorders Screening for diabetes mellitus Screening for thyroid disorder Avitaminosis D LIPID PANEL WITH REFLEX TO DIRECT LDL Routine 10/28/2024 2:36 PM EST Atrophic arthritis (CMS/HCC) Routine general medical examination at a health care facility Screening for lipoid disorders Screening for diabetes mellitus Screening for thyroid disorder Avitaminosis D COMPREHENSIVE METABOLIC PANEL Routine 10/28/2024 2:36 PM EST Atrophic arthritis (CMS/HCC) Routine general medical examination at a health care facility Screening for lipoid disorders Screening for diabetes mellitus Screening for thyroid disorder Avitaminosis D CBC AND DIFFERENTIAL Routine 10/28/2024 2:36 PM EST Atrophic arthritis (CMS/HCC) Routine general medical examination at a health care facility Screening for lipoid disorders Screening for diabetes mellitus Screening for thyroid disorder Avitaminosis D OXYCODONE, URINE STAT 10/26/2024 1:47 PM EST DRUG ABUSE SCREEN 8A PANEL, URINE STAT 10/26/2024 1:47 PM EST INMAN URINE CULTURE TUBE STAT 10/26/2024 8:01 AM EST URINALYSIS WITH REFLEX MICROSCOPIC AND CULTURE STAT 10/26/2024 8:01 AM EST URINALYSIS WITH REFLEX MICROSCOPIC AND CULTURE STAT 10/26/2024 8:01 AM EST CULTURE URINE STAT 10/26/2024 8:01 AM EST BORRELIA BURGDORFERI ANTIBODY Add-On 10/26/2024 7:11 AM EST THYROXINE FREE STAT Add-on 10/26/2024 7:11 AM EST THYROID STIMULATING HORMONE STAT Add-on 10/26/2024 7:11 AM EST CREATINE KINASE STAT Add-on 10/26/2024 7:11 AM EST CBC WITH AUTO DIFFERENTIAL STAT 10/26/2024 7:11 AM EST COMPREHENSIVE METABOLIC PANEL STAT 10/26/2024 7:11 AM EST CBC AND DIFFERENTIAL STAT 10/26/2024 7:11 AM EST ECG 12-LEAD STAT 10/26/2024 7:05 AM EST ECG ANNOTATED 10/26/2024 XR CHEST 2 VIEWS STAT 10/09/2024 8:03 PM EST XR ELBOW 3+ VIEWS RIGHT Routine 10/01/2024 3:56 PM EST Pain XR SACROILIAC JOINTS 3+ VIEWS Routine 09/24/2024 11:33 AM EST Sacroiliitis, not elsewhere classified (CMS/HCC) HEPATITIS C SCREENING Routine 05/20/2024 HIV SCREENING Routine 05/20/2024 COLONOSCOPY Routine 08/15/2023 HPV Routine 07/20/2023 NOEL SCREENING DIGITAL Routine 06/05/2023 4:45 PM EDT Encounter for screening mammogram for malignant neoplasm of breast from Last 3 Months or Most Recently Relevant to Health Maintenance Results * XR Lumbar Spine 2-3 Views [...] Signed Date: 12/15/2024 07:42 ET Workstation ID: [id number] Transcribed By: Self Edit Transcribed Date: 12/15/2024 [...] Signed Date: 12/15/2024 07:42 ET Workstation ID: [id number] Transcribed By: Self Edit Transcribed Date: 12/15/2024 07:40 ET Dwight BOOTHE IMC[facility] XR PROCEDURES Final Result * Urinalysis with reflex microscopic and culture (12/14/2024 5:16 PM EST) Only the most recent of2 resultswithin the time period is included. Specific [place] Urine 1.012 1.003 - 1.030 LAB URINALYSIS - AUTOMATED METHOD 12/14/2024 6:08 PM [facility] pH, Urine 7.5 5.0 - 8.0 pH LAB URINALYSIS - AUTOMATED METHOD 12/14/2024 6:08 PM [facility] Leukocytes, Urine Negative Negative LAB URINALYSIS - AUTOMATED METHOD 12/14/2024 6:08 PM [facility] Nitrite, Urine Negative Negative LAB URINALYSIS - AUTOMATED METHOD 12/14/2024 6:08 PM [facility] Protein, Urine Negative <=Trace mg/dL LAB URINALYSIS - AUTOMATED METHOD 12/14/2024 6:08 PM [facility] Glucose, Urine Negative Negative mg/dL LAB URINALYSIS - AUTOMATED METHOD 12/14/2024 6:08 PM [facility] Ketones, Urine Negative Negative mg/dL LAB URINALYSIS - AUTOMATED METHOD 12/14/2024 6:08 PM [facility] Urobilinogen, Urine 0.2 0.2 - 1.0 mg/dL LAB URINALYSIS - AUTOMATED METHOD 12/14/2024 6:08 PM [facility] Bilirubin, Urine Negative Negative LAB URINALYSIS - AUTOMATED METHOD 12/14/2024 6:08 PM [facility] Blood, Urine Negative Negative LAB URINALYSIS - AUTOMATED METHOD 12/14/2024 6:08 PM [facility] Urine Urine specimen obtained by clean catch procedure / Unknown Non-blood Collection / Unknown 12/14/2024 5:16 PM EST 12/14/2024 5:38 PM EST us Dwight BOOTHE LAB URINE ORDERABLES Final Resul t [facility] [address] [place] [address], * [place] urine culture tube (12/14/2024 5:16 PM EST) Only the most recent of2 resultswithin the time period is included. Extra Tube Hold for add-ons. 12/14/2024 7:02 PM [facility] Comment:Auto resulted. Urine Urine specimen obtained by clean catch procedure / Unknown Non-blood Collection / Unknown 12/14/2024 5:16 PM EST 12/14/2024 5:38 PM EST us Yotarichardson Block PA LAB URINE ORDERABLES Final Resul t [facility] [address] [place] [address], * CT Head wo Contrast (12/14/2024 4:54 [...] Olga Jauregui MD on 12/14/2024 17:57:05 [address]HE IMG CT PROCEDURES Final Result * ECG 12 lead (12/14/2024 4:37 PM EST) Only the most recent of2 resultswithin the time period is included. Ventricular Rate ECG 67 BPM GEMUSE Atrial Rate 67 BPM GEMUSE P-R Interval 162 ms GEMUSE QRS Duration 64 ms GEMUSE Q-T Interval 422 ms GEMUSE QTc 445 ms GEMUSE P Wave [place] 40 degrees GEMUSE R [place] 6 degrees GEMUSE T [place] 26 degrees GEMUSE ECG Interpretation Normal sinus [...] panel molecular study (12/14/2024 4:28 PM EST) Only the most recent of2 resultswithin the time period is included. Pathologist [facility] Adenovirus Detection by PCR Not Detected Not Detected LAB MICROBIOLOGY METHOD 12/14/2024 5:56 PM [facility] Influenza A PCR Not Detected Not Detected LAB MICROBIOLOGY METHOD 12/14/2024 5:56 PM [facility] Influenza B PCR Not Detected Not Detected LAB MICROBIOLOGY METHOD 12/14/2024 5:56 PM [facility] Coronavirus 229E Not Detected Not Detected LAB MICROBIOLOGY METHOD 12/14/2024 5:56 PM [facility] Coronavirus HKU1 Not Detected Not Detected LAB MICROBIOLOGY METHOD 12/14/2024 5:56 PM [facility] Coronavirus OC43 Not Detected Not Detected LAB MICROBIOLOGY METHOD 12/14/2024 5:56 PM [facility] Coronavirus NL63 Not Detected Not Detected LAB MICROBIOLOGY METHOD 12/14/2024 5:56 PM [facility] Parainfluenza Virus 1 Not Detected Not Detected LAB MICROBIOLOGY METHOD 12/14/2024 5:56 PM [facility] Parainfluenza Virus 2 Not Detected Not Detected LAB MICROBIOLOGY METHOD 12/14/2024 5:56 PM [facility] Parainfluenza Virus 3 Not Detected Not Detected LAB MICROBIOLOGY METHOD 12/14/2024 5:56 PM [facility] Parainfluenza Virus 4 Not Detected Not Detected LAB MICROBIOLOGY METHOD 12/14/2024 5:56 PM [facility] RSV PCR Not Detected Not Detected LAB MICROBIOLOGY METHOD 12/14/2024 5:56 PM [facility] Human Metapneumovirus A and B Not Detected Not Detected LAB MICROBIOLOGY METHOD 12/14/2024 5:56 PM [facility] Rhinovirus/Entero virus Not Detected Not Detected LAB MICROBIOLOGY METHOD 12/14/2024 5:56 PM [facility] Bordetella pertussis Not Detected Not Detected LAB MICROBIOLOGY METHOD 12/14/2024 5:56 PM [facility] Bordetella parapertussis Not Detected Not Detected LAB MICROBIOLOGY METHOD 12/14/2024 5:56 PM [facility] Mycoplasma pneumo by PCR Not Detected Not Detected LAB MICROBIOLOGY METHOD 12/14/2024 5:56 PM [facility] Chlamydia pneumoniae Not Detected Not Detected LAB MICROBIOLOGY METHOD 12/14/2024 5:56 PM [facility] SARS COV-2 Not Detected Not Detected LAB MICROBIOLOGY METHOD 12/14/2024 5:56 PM [facility] Swab Both anterior nares / Unknown Non-blood Collection / Unknown 12/14/2024 4:28 PM EST 12/14/2024 4:34 PM EST [facility] - 12/14/2024 5:56 PM EST Testing was performed using the Didi-Dachee Respiratory Pathogen PCR Assay. All results must [...] that are below the limit of detection. Dwight BOOTHE LAB MICROBIOLOGY - GENERAL ORDER KAILASH Final Result [facility] [address] [place] [address], * (ABNORMAL) CBC auto differential (12/14/2024 12:01 PM EST) Only the most recent of4 resultswithin the time period is included. WBC 8.5 4.8 - 10.8 K/mcL LAB HEMETOLOGY METHOD 12/14/2024 12:29 PM [facility] RBC 4.40 3.80 - 4.80 M/mcL LAB HEMETOLOGY METHOD 12/14/2024 12:29 PM [facility] Hemoglobin 14.1 11.5 - 16.0 g/dL LAB HEMETOLOGY METHOD 12/14/2024 12:29 PM [facility] Hematocrit 42.2 35.0 - 47.0 % LAB HEMETOLOGY METHOD 12/14/2024 12:29 PM [facility] MCV 96.6 79.0 - 98.0 FL LAB HEMETOLOGY METHOD 12/14/2024 12:29 PM [facility] MCH 32.3(H) 27.0 - 32.0 pcg LAB HEMETOLOGY METHOD 12/14/2024 12:29 PM [facility] MCHC 33.4 32.0 - 37.0 g/dL LAB HEMETOLOGY METHOD 12/14/2024 12:29 PM [facility] RDW 13.2 11.0 - 15.0 % LAB HEMETOLOGY METHOD 12/14/2024 12:29 PM [facility] Platelets 329 130 - 400 K/mcL LAB HEMETOLOGY METHOD 12/14/2024 12:29 PM [facility] MPV 9.5 7.0 - 11.0 FL LAB HEMETOLOGY METHOD 12/14/2024 12:29 PM [facility] NRBC 0.0 <1.0 % LAB HEMETOLOGY METHOD 12/14/2024 12:29 PM [facility] NRBC Absolute 0.00 <0.10 K/mcL LAB HEMETOLOGY METHOD 12/14/2024 12:29 PM [facility] Neutrophils Relative 73.7 % LAB HEMETOLOGY METHOD 12/14/2024 12:29 PM [facility] Lymphocytes Relative 17.8 % LAB HEMETOLOGY METHOD 12/14/2024 12:29 PM [facility] Monocytes Relative 6.9 % LAB HEMETOLOGY METHOD 12/14/2024 12:29 PM [facility] Eosinophils Relative 0.8 % LAB HEMETOLOGY METHOD 12/14/2024 12:29 PM [facility] Basophils Relative 0.4 % LAB HEMETOLOGY METHOD 12/14/2024 12:29 PM [facility] Immature Granulocytes Relative 0.4 % LAB HEMETOLOGY METHOD 12/14/2024 12:29 PM [facility] Neutrophils Absolute 6.29 1.50 - 7.00 K/mcL LAB HEMETOLOGY METHOD 12/14/2024 12:29 PM [facility] Lymphocytes Absolute 1.52 1.00 - 5.00 K/mcL LAB HEMETOLOGY METHOD 12/14/2024 12:29 PM [facility] Monocytes Absolute 0.59 0.20 - 1.00 K/mcL LAB HEMETOLOGY METHOD 12/14/2024 12:29 PM [facility] Eosinophils Absolute 0.07 0.00 - 0.50 K/mcL LAB HEMETOLOGY METHOD 12/14/2024 12:29 PM EST [facility] Basophils Absolute 0.03 0.00 - 0.20 K/[facility] LAB HEMETOLOGY METHOD 12/14/2024 12:29 PM EST [facility] Immature Granulocytes Absolute 0.03 0.00 - 0.03 K/[facility] LAB HEMETOLOGY METHOD 12/14/2024 12:29 PM EST [facility] Blood Venous blood specimen / Unknown Venipuncture / Unknown 12/14/2024 12:01 PM EST 12/14/2024 12:24 PM EST Pepe Mar DO LAB BLOOD ORDERABLES Final Result Performing Organization Address City/[facility]/ZIP Co de Phone Number [facility] [address] [place] [address], * Phosphorus (12/14/2024 12:01 PM EST) Phosphorus 3.5 2.5 - 4.5 mg/dL LAB CHEMISTRY METHOD 12/14/2024 4:31 PM EST [facility] Blood Venous blood specimen / Unknown Venipuncture / Unknown 12/14/2024 12:01 PM EST 12/14/2024 12:24 PM EST Dwight BOOTHE LAB BLOOD ORDERABLES Final Resul t [facility] [address] [place] [address], [place] [phone] * Magnesium (12/14/2024 12:01 PM EST) Only the most recent of2 resultswithin the time period is included. Magnesium 2.0 1.9 - 2.6 mg/dL LAB CHEMISTRY METHOD 12/14/2024 12:51 PM EST [facility] Blood Venous blood specimen / Unknown Venipuncture / Unknown 12/14/2024 12:01 PM EST 12/14/2024 12:24 PM EST us Pepe Mar DO LAB BLOOD ORDERABLES Final Result [facility] [address] [place] [address], [place] [phone] * (ABNORMAL) Basic metabolic panel (12/14/2024 12:01 PM EST) Only the most recent of2 resultswithin the time period is included. Sodium 138 133 - 145 mmol/L LAB CHEMISTRY METHOD 12/14/2024 12:59 PM [facility] Potassium 4.5 3.5 - 5.5 mmol/L LAB CHEMISTRY METHOD 12/14/2024 12:59 PM [facility] Chloride 106 96 - 110 mmol/L LAB CHEMISTRY METHOD 12/14/2024 12:59 PM [facility] CO2 28 21 - 32 mmol/L LAB CHEMISTRY METHOD 12/14/2024 12:59 PM [facility] Anion Gap 4 3 - 11 LAB CHEMISTRY METHOD 12/14/2024 12:59 PM [facility] Glucose 119(H) 70 - 100 mg/dL LAB CHEMISTRY METHOD 12/14/2024 12:59 PM [facility] BUN 13 5 - 25 mg/dL LAB CHEMISTRY METHOD 12/14/2024 12:59 PM [facility] Creatinine 0.82 0.50 - 1.10 mg/dL LAB CHEMISTRY METHOD 12/14/2024 12:59 PM [facility] eGFR 84 >=60 mL/min/1. 73m2 LAB CHEMISTRY METHOD 12/14/2024 12:59 PM [facility] Comment:Calculation based on the??Chronic Kidney Disease Epidemiology Collaboration (CKD-EPI) equation refit??without adjustment for race. BUN/Creatinine Ratio 15.9 LAB CHEMISTRY METHOD 12/14/2024 12:59 PM EST [facility] Calcium 9.6 8.5 - 10.5 mg/dL LAB CHEMISTRY METHOD 12/14/2024 12:59 PM EST [facility] Blood Venous blood specimen / Unknown Venipuncture / Unknown 12/14/2024 12:01 PM EST 12/14/2024 12:24 PM EST us Pepe Mar DO LAB BLOOD ORDERABLES Final Result [facility] [address] [place] [address], * ECG-Annotated (12/14/2024) Only the most recent of2 resultswithin the time period is included. us Provider Onbase MD ECG ORDERABLES Final Result * CT Chest/Abdomen/Pelvis wo Contrast (12/05/2024 6:00 [...] Garcia MD on 12/05/2024 18:18:[address] PROCEDURES Final R esult * Borrelia burgdorferi antibody (12/05/2024 1:30 PM EST) Only the most recent of2 resultswithin the time period is included. [facility] Lyme Ab Negative Negative LAB CHEMISTRY METHOD 12/06/2024 9:08 AM EST [facility] Comment: No laboratory evidence of infection with B. burgdorferi (Lyme disease). Negative results may occur in patients recently infected (<=14 days) with B. burgdorferi. ??If recent infection is suspected, repeat testing on a new sample collected in 7-14 days is recommended. Blood Venous blood specimen / Unknown Venipuncture / Unknown 12/05/2024 1:30 PM EST 12/05/2024 1:39 PM EST Jewel Hernández MD LAB BLOOD ORDERABLES Final Resu lt [facility] [address] [place] [address], * Sedimentation rate, automated (12/05/2024 1:30 PM EST) Only the most recent of2 resultswithin the time period is included. Pathologist [facility] Sed Rate 20 0 - 30 mm/hr LAB HEMETOLOGY METHOD 12/05/2024 1:59 PM EST [facility] Blood Venous blood specimen / Unknown Venipuncture / Unknown 12/05/2024 1:30 PM EST 12/05/2024 1:39 PM EST us Jewel Hernández MD LAB BLOOD ORDERABLES Final Resu lt Performing Organization Address City/[facility]/ZIP Co de Phone Number [facility] [address] [place] [address], [place] [phone] * C-reactive protein (12/05/2024 1:30 PM EST) Pathologist [facility] C-Reactive Protein <0.29 <=0.50 mg/dL LAB CHEMISTRY METHOD 12/05/2024 2:05 PM EST [facility] Blood Venous blood specimen / Unknown Venipuncture / Unknown 12/05/2024 1:30 PM EST 12/05/2024 1:39 PM EST us Jewel Hernández MD LAB BLOOD ORDERABLES Final Resu lt Performing Organization Address [facility] de Phone Number [facility] [address] [place] [address], [place] [phone] * Creatine kinase (12/05/2024 1:30 PM EST) Only the most recent of2 resultswithin the time period is included. Pathologist [facility] Total CK 80 22 - 269 unit/L LAB CHEMISTRY METHOD 12/05/2024 2:05 PM EST [facility] Blood Venous blood specimen / Unknown Venipuncture / Unknown 12/05/2024 1:30 PM EST 12/05/2024 1:39 PM EST us Jewel Hernández MD LAB BLOOD ORDERABLES Final Resu lt Performing Organization Address City/[facility]/ZIP Co de Phone Number [facility] [address] [place] [address], [place] [phone] * EMG one limb (11/18/2024 1:17 PM EST) Narrative Linda Buitrago MD - 11/18/2024 3:44 PM EST See report in chart review us Nichelle BOOTHE NEUROLOGY ORDERABLES Final Re sult * XR Cervical Spine 4-5 Views (11/18/2024 12:43 PM EST) Anatomical Region Laterality Modality Spine, C-spine Radiographic Krystyna ging 11/19/2024 1:40 PM EST Impressions 11/19/2024 1:45 PM EST Impression: Cervical spondylosis and degenerative disc disease, with bilateral bony neural foraminal narrowing, similar to the prior neck CTA. Telerad TL ([id number]) -------- FINAL REPORT -------- Dictated By: Dayami Diehl Dictated Date: 11/19/2024 13:40 ET Assigned Physician: Dayami Diehl Reviewed and Electronically Signed By: Dayami Diehl Signed Date: 11/19/2024 13:45 ET Workstation ID: [id number] Transcribed By: Self Edit Transcribed Date: 11/19/2024 13:40 ET Narrative 11/19/2024 1:45 PM EST History: Bilateral arm/shoulder pain radiating into the wrists and fingers. No trauma. Comparison: Neck CTA 05/19/24 Findings: AP, oblique, lateral and open-mouth odontoid views. Vertebral alignment is normal. The vertebral bodies maintain normal height. Loss of disc height is seen throughout the cervical spine, worst at C4-5 and C5-C6, consistent with degenerative disc disease. This is accompanied by uncovertebral spurring. The apophyseal joints are intact, with scattered arthritic changes. Bilateral bony neural foraminal narrowing is seen. This is worst at C3-4, C5-6 and C6-7 on the left and at C3-4, C4-5 and C5-6 on the right, due predominantly to uncovertebral hypertrophy. The findings are similar to the neck CTA. The prevertebral soft tissues, predental distance and odontoid process appear normal. Procedure Note Dayami Diehl MD - 11/19/2024 History: Bilateral arm/shoulder pain radiating into the wrists andfingers. No trauma. Comparison: Neck CTA 05/19/24 Findings: AP, oblique, lateral and open-mouth odontoid views. Vertebral alignment is normal. The vertebral bodies maintain normalheight. Loss of disc height is seen throughout the cervical spine, worstat C4-5 and C5-C6, consistent with degenerative disc disease. This isaccompanied by uncovertebral spurring. The apophyseal joints are intact,with scattered arthritic changes. Bilateral bony neural foraminal narrowing is seen. This is worst at C3-4,C5-6 and C6-7 on the left and at C3-4, C4-5 and C5-6 on the right, duepredominantly to uncovertebral hypertrophy. The findings are similar tothe neck CTA. The prevertebral soft tissues, predental distance and odontoid processappear normal. IMPRESSION: Impression: Cervical spondylosis and degenerative disc disease, with bilateral bonyneural foraminal narrowing, similar to the prior neck CTA. Telerad TL ([id number]) -------- FINAL REPORT -------- Dictated By: Dayami Diehl Dictated Date: 11/19/2024 13:40 ET Assigned Physician: Dayami Diehl Reviewed and Electronically Signed By: Dayami Diehl Signed Date: 11/19/2024 13:45 ET Workstation ID: [id number] Transcribed By: Self Edit Transcribed Date: 11/19/2024 13:40 ET Araceli BOOTHE IMG XR PROCEDURES Final Result * CT Lumbar Spine wo Contrast (11/02/2024 3:13 PM EST) Anatomical Region Laterality Modality Spine, L-spine Computed Tomogra phy Historical Provider MD MORRIS CT PROCEDURES Final R esult * CT Abdomen w Contrast (11/02/2024 3:08 PM EST) Anatomical Region Laterality Modality Body Computed Tomogra phy us Historical Provider IMCurt CT PROCEDURES Final R esult * XR Hips 2 Views wo or w Pelvis bilat (11/02/2024 3:06 PM EST) Anatomical Region Laterality Modality Lower Extremities, Hip Bilateral Radiograp hic Imaging Historical Provider IMCurt XR PROCEDURES Final R esult * Lipid panel with reflex to direct LDL (10/28/2024 2:36 PM EST) Cholesterol 196 0 - 200 mg/dL LAB CHEMISTRY METHOD 10/28/2024 4:17 PM EST [facility] Triglycerides 51 0 - 150 mg/dL LAB CHEMISTRY METHOD 10/28/2024 4:17 PM [facility] HDL 111 >=40 mg/dL LAB CHEMISTRY METHOD 10/28/2024 4:17 PM EST [facility] LDL Calculated 75 0 - 100 mg/dL LAB CHEMISTRY METHOD 10/28/2024 4:17 PM EST [facility] VLDL Cholesterol Corby 10.2 mg/dL LAB CHEMISTRY METHOD 10/28/2024 4:17 PM EST [facility] Non HDL Chol. (LDL+VLDL) 85 <145 mg/dL LAB CHEMISTRY METHOD 10/28/2024 4:17 PM [facility] Chol/HDL Ratio 1.8 0.0 - 4.4 LAB CHEMISTRY METHOD 10/28/2024 4:17 PM [facility] Blood Venous blood specimen / Unknown Venipuncture / Unknown 10/28/2024 2:36 PM EST 10/28/2024 3:06 PM EST Araceli BOOTHE LAB BLOOD ORDERABLES Fin al Result [facility] [address] [place] [address], [place] [phone] * CAMILO IFA with titer and pattern (10/28/2024 2:36 PM EST) [facility] CAMILO Negative Negative 10/31/2024 11:26 AM EST [facility] Blood Venous blood specimen / Unknown Venipuncture / Unknown 10/28/2024 2:36 PM EST 10/28/2024 3:07 PM EST Araceli BOOTHE LAB BLOOD ORDERABLES Fin al Result [facility] [address] [place] [address], [place] [phone] * (ABNORMAL) Iron and TIBC (10/28/2024 2:36 PM EST) [facility] Iron 41 40 - 150 mcg/dL LAB CHEMISTRY METHOD 10/28/2024 4:15 PM EST [facility] TIBC 392 250 - 450 mcg/dL LAB CHEMISTRY METHOD 10/28/2024 4:15 PM EST [facility] Iron Saturation 10(L) 15 - 50 % LAB CHEMISTRY METHOD 10/28/2024 4:15 PM EST [facility] Blood Venous blood specimen / Unknown Venipuncture / Unknown 10/28/2024 2:36 PM EST 10/28/2024 3:06 PM EST Araceli BOOTHE LAB BLOOD ORDERABLES Fin al Result [facility] [address] [place] [address], [place] [phone] * Vitamin D 25 hydroxy (10/28/2024 2:36 PM EST) [facility] Vit D, 25-Hydroxy 40.6 30.0 - 80.0 ng/mL LAB CHEMISTRY METHOD 10/28/2024 4:18 PM EST [facility] Blood Venous blood specimen / Unknown Venipuncture / Unknown 10/28/2024 2:36 PM EST 10/28/2024 3:06 PM EST Araceli BOOTHE LAB BLOOD ORDERABLES Fin al Result Performing Organization Address City/[facility]/ZIP Co de Phone Number [facility] [address] [place] [address], [place] [phone] * (ABNORMAL) Rheumatoid factor (10/28/2024 2:36 PM EST) [facility] Rheumatoid Factor 152.0(H) <15.0 I Unit/mL LAB CHEMISTRY METHOD 10/28/2024 4:15 PM EST [facility] Blood Venous blood specimen / Unknown Venipuncture / Unknown 10/28/2024 2:36 PM EST 10/28/2024 3:06 PM EST Araceli BOOTHE LAB BLOOD ORDERABLES Fin al Result Performing Organization Address City/[facility] Co de Phone Number [facility] [address] [place] [address], [place] [phone] * C reactive protein, high sensitivity (10/28/2024 2:36 PM EST) [facility] CRP, High Sensitivity 0.58 mg/L LAB CHEMISTRY METHOD 10/28/2024 4:11 PM EST [facility] Comment: Cardio CRP Relative Risk Categories ?? Low ? <1.0 mg/L ?? Average ?? 1.0 - 3.0 mg/L ?? High ?>3.0 mg/L Levels >10.0 mg/L should be ignored and repeated when the patient is stable and infection or inflammation is ruled out. HRT (estrogens) consistently increase cardio CRP levels. Risk estimates for women on HRT may need to be calibrated downward. Blood Venous blood specimen / Unknown Venipuncture / Unknown 10/28/2024 2:36 PM EST 10/28/2024 3:06 PM EST Araceli BOOTHE LAB BLOOD ORDERABLES Fin al Result Performing Organization Address City/[facility]/ZIP Co de Phone Number [facility] [address] [place] [address], [place] [phone] * Thyroid stimulating hormone (10/28/2024 2:36 PM EST) Only the most recent of2 resultswithin the time period is included. [facility] TSH 0.60 0.40 - 4.00 mcIU/mL LAB CHEMISTRY METHOD 10/28/2024 4:19 PM EST [facility] Blood Venous blood specimen / Unknown Venipuncture / Unknown 10/28/2024 2:36 PM EST 10/28/2024 3:06 PM EST Araceli Augustin OR LAB BLOOD ORDERABLES Fin al Result Performing Organization Address [facility] Co de Phone Number [facility] [address] [place] [address], [place] [phone] * Hemoglobin A1c (10/28/2024 2:36 PM EST) [facility] Hemoglobin A1C 5.4 <6.5 % LAB CHEMISTRY METHOD 10/28/2024 9:16 PM EST [facility] Mean Bld Glu Estim. 108 mg/dL LAB CHEMISTRY METHOD 10/28/2024 9:16 PM EST [facility] Blood Venous blood specimen / Unknown Venipuncture / Unknown 10/28/2024 2:36 PM EST 10/28/2024 3:10 PM EST Araceli Augustin OR LAB BLOOD ORDERABLES Fin al Result Performing Organization Address [facility]/ZIP Co de Phone Number [facility] [address] [place] [address], [place] [phone] * Ferritin (10/28/2024 2:36 PM EST) Ferritin 28 8 - 252 ng/mL LAB CHEMISTRY METHOD 10/28/2024 4:15 PM [facility] Blood Venous blood specimen / Unknown Venipuncture / Unknown 10/28/2024 2:36 PM EST 10/28/2024 3:06 PM EST us Araceli BOOTHE LAB BLOOD ORDERABLES Fin al Result [facility] [address] [place] [address], [place] [phone] * (ABNORMAL) Comprehensive metabolic panel (10/28/2024 2:36 PM EST) Only the most recent of2 resultswithin the time period is included. [facility] Sodium 139 133 - 145 mmol/L LAB CHEMISTRY METHOD 10/28/2024 4:15 PM [facility] Potassium 4.0 3.5 - 5.5 mmol/L LAB CHEMISTRY METHOD 10/28/2024 4:15 PM [facility] Chloride 105 96 - 110 mmol/L LAB CHEMISTRY METHOD 10/28/2024 4:15 PM [facility] CO2 29 21 - 32 mmol/L LAB CHEMISTRY METHOD 10/28/2024 4:15 PM [facility] Anion Gap 5 3 - 11 LAB CHEMISTRY METHOD 10/28/2024 4:15 PM [facility] Glucose 101(H) 70 - 100 mg/dL LAB CHEMISTRY METHOD 10/28/2024 4:15 PM [facility] BUN 12 5 - 25 mg/dL LAB CHEMISTRY METHOD 10/28/2024 4:15 PM [facility] Creatinine 0.87 0.50 - 1.10 mg/dL LAB CHEMISTRY METHOD 10/28/2024 4:15 PM [facility] eGFR 78 >=60 mL/min/1. 73m2 LAB CHEMISTRY METHOD 10/28/2024 4:15 PM [facility] Comment:Calculation based on the??Chronic Kidney Disease Epidemiology Collaboration (CKD-EPI) equation refit??without adjustment for race. BUN/Creatinine Ratio 13.8 LAB CHEMISTRY METHOD 10/28/2024 4:15 PM [facility] Calcium 9.5 8.5 - 10.5 mg/dL LAB CHEMISTRY METHOD 10/28/2024 4:15 PM [facility] AST (SGOT) 13 10 - 42 unit/L LAB CHEMISTRY METHOD 10/28/2024 4:15 PM [facility] ALT (SGPT) 15 10 - 60 unit/L LAB CHEMISTRY METHOD 10/28/2024 4:15 PM [facility] Alkaline Phosphatase 100 42 - 121 unit/L LAB CHEMISTRY METHOD 10/28/2024 4:15 PM [facility] Total Protein 6.9 6.0 - 8.0 g/dL LAB CHEMISTRY METHOD 10/28/2024 4:15 PM [facility] Albumin 3.8 3.2 - 5.0 g/dL LAB CHEMISTRY METHOD 10/28/2024 4:15 PM [facility] Total Bilirubin 0.3 0.0 - 1.4 mg/dL LAB CHEMISTRY METHOD 10/28/2024 4:15 PM [facility] Blood Venous blood specimen / Unknown Venipuncture / Unknown 10/28/2024 2:36 PM EST 10/28/2024 3:06 PM EST us Araceli BOOTHE LAB BLOOD ORDERABLES Fin al Result [facility] [address] [place] [address], * Drug abuse screen 8a panel, urine (10/26/2024 1:47 PM EST) Amphetamine Screen, Ur Negative Negative LAB CHEMISTRY METHOD 10/26/2024 2:22 PM [facility] Comment:Certain OTC medicati ons containing ephedrine, phenylephrine, pseudoephedrine and phenylpropanolamine can cause false positive results. Barbiturate Screen, Ur Negative Negative LAB CHEMISTRY METHOD 10/26/2024 2:22 PM [facility] Benzodiazepine Screen, Ur Negative Negative LAB CHEMISTRY METHOD 10/26/2024 2:22 PM [facility] Cocaine Screen, Ur Negative Negative LAB CHEMISTRY METHOD 10/26/2024 2:22 PM [facility] Opiate Screen, Ur Negative Negative LAB CHEMISTRY METHOD 10/26/2024 2:22 PM [facility] Cannabinoid (THC) Screen, Ur Negative Negative LAB CHEMISTRY METHOD 10/26/2024 2:22 PM [facility] Comment:Specimens from patie nts taking pantoprazole sodium (Protonix) have been shown to produce false positive results. Oxycodone Screen, Ur Negative Negative LAB CHEMISTRY METHOD 10/26/2024 2:22 PM [facility] Fentanyl, Ur Negative Negative LAB CHEMISTRY METHOD 10/26/2024 2:22 PM [facility] Urine Urine specimen obtained by clean catch procedure / Unknown Non-blood Collection / Unknown 10/26/2024 1:47 PM EST 10/26/2024 1:57 PM EST [facility] - 10/26/2024 2:22 PM EST Assay cutoffs: Amphetamines ? 1000 ng/mL Barbiturates ?200 ng/mL Benzodiazepines ?? 200 ng/mL Cocaine ? 300 ng/mL Fentanyl ?1 ng/mL Opiates ? 300 ng/mL Oxycodone ? 100 ng/mL THC ?50 ng/mL Semi-quantitative assay for screening purposes only. Unconfirmed screening result should not be used for non-medical purposes. *ALTERNATE METHOD CONFIRMATION DONE UPON REQUEST ONLY* Axel Wiley MD LAB URINE ORDERABLES Final Res ult Performing Organization Address [facility] [facility] Co de Phone Number [facility] [address] [place] [address], [place] [phone] * Oxycodone, urine (10/26/2024 1:47 PM EST) Oxycodone Screen, Ur Negative Negative LAB CHEMISTRY METHOD 10/26/2024 2:22 PM EST [facility] Comment: Assay cutoff 100 ng/mL Semi-quantitative assay for screening purposes only. Unconfirmed screening result should not be used for non-medical purposes. *ALTERNATE METHOD CONFIRMATION DONE UPON REQUEST ONLY* Urine Urine specimen obtained by clean catch procedure / Unknown Non-blood Collection / Unknown 10/26/2024 1:47 PM EST 10/26/2024 1:57 PM EST Axel Wiley MD LAB URINE ORDERABLES Final Res ult Performing Organization Address [facility] de Phone Number [facility] [address] [place] [address], [place] [phone] * Culture urine (10/26/2024 8:01 AM EST) Pathologist [facility] Culture, Urine >100,000 CFU/mL Mixed urogenital ramone, no uropathogens present. Suggest repeat specimen if clinically indicated. 10/28/2024 7:41 AM EST [facility] Urine Urine specimen obtained by clean catch procedure / Unknown Non-blood Collection / Unknown 10/26/2024 8:01 AM EST 10/26/2024 8:44 AM EST Avis BOOTHE LAB MICROBIOLOGY - GEN ERAL ORDERABLES Final Result Performing Organization Address [facility]/ZIP Co de Phone Number [facility] [address] [place] [address], [place] [phone] * T4, Free (10/26/2024 7:11 AM EST) Free T4 1.09 0.70 - 1.80 ng/dL LAB CHEMISTRY METHOD 10/26/2024 10:03 AM EST [facility] Blood Venous blood specimen / Unknown Venipuncture / Unknown 10/26/2024 7:11 AM EST 10/26/2024 7:20 AM EST us Axel Wiley MD LAB BLOOD ORDERABLES Final Res ult [facility] [address] [place] [address], [place] [phone] * XR Chest 2 Views (10/09/2024 8:03 PM EST) Anatomical Region Laterality Modality Body Radiographic Krystyna ging 10/10/2024 8:47 AM EST Impressions 10/10/2024 8:48 AM EST No acute findings. -------- FINAL REPORT -------- Dictated By: Hever Hutton Dictated Date: 10/10/2024 08:47 ET Assigned Physician: Hever Hutton Reviewed and Electronically Signed By: Hever Hutton Signed Date: 10/10/2024 08:48 ET Workstation ID: [id number] Transcribed By: Self Edit Transcribed Date: 10/10/2024 08:47 ET Narrative 10/10/2024 8:48 AM EST PA and lateral views of the chest dated 10/09/2024. HISTORY: Persistent pain x 1 year. COMPARISON: 09/18/2024. FINDINGS: Lungs are mildly hypoventilatory. ??Stable linear markings in the lingula suggesting scarring. ??Lungs otherwise clear. ??No pneumothorax, pleural effusion, or pulmonary edema. ??Mild degenerative changes of the spine. ??Herniorrhaphy tacks over the upper central abdomen. Procedure Note Hever Hutton MD - 10/10/2024 PA and lateral views of the chest dated 10/09/2024. HISTORY: Persistent pain x 1 year. COMPARISON: 09/18/2024. FINDINGS: Lungs are mildly hypoventilatory. Stable linear markings in the lingulasuggesting scarring. Lungs otherwise clear. No pneumothorax, pleuraleffusion, or pulmonary edema. Mild degenerative changes of the spine.Herniorrhaphy tacks over the upper central abdomen. IMPRESSION: No acute findings. -------- FINAL REPORT -------- Dictated By: Hever Hutton Dictated Date: 10/10/2024 08:47 ET Assigned Physician: Hever Hutton Reviewed and Electronically Signed By: Hever Hutton Signed Date: 10/10/2024 08:48 ET Workstation ID: [id number] Transcribed By: Self Edit Transcribed Date: 10/10/2024 08:47 ET Nelson Hui DO IMG XR PROCEDURES Final Result * XR Elbow 3+ Views Right (10/01/2024 3:56 PM EST) Anatomical Region Laterality Modality Upper Extremities, Elbow Right Compute d Radiography Narrative 10/01/2024 3:59 PM EST Date of Visit: 10/01/2024 Reason for visit: Right elbow pain Views: AP, lateral, oblique right elbow Comparison: None Findings: No fracture, dislocation or lytic lesions. ??On AP view there is a small calcification adjacent to the lateral epicondyle. ??There is also small calcification at the proximal third of the forearm in the soft tissue. ??Mild arthritic changes. ??Overall normal radiocapitellar and ulnar relationships. Impression: Mild arthritic changes. ??Small calcification seen at lateral condyle. ??No acute findings. Nichelle BOOTHE IMG XR PROCEDURES Final Resul t * XR Sacroiliac Joints 3+ Views (09/24/2024 11:33 AM EST) Anatomical Region Laterality Modality Body, Spine, Pelvis Radiographic Imaging 09/24/2024 11:4 4 AM EST Impressions 09/24/2024 11:48 AM EST No specific radiographic evidence of sacroiliitis. -------- FINAL REPORT -------- Dictated By: Alexey Morton Dictated Date: 09/24/2024 11:44 ET Assigned Physician: Alexey Morton Reviewed and Electronically Signed By: Alexey Morton Signed Date: 09/24/2024 11:48 ET Workstation ID: [id number] Transcribed By: Self Edit Transcribed Date: 09/24/2024 11:44 ET Narrative 09/24/2024 11:48 AM EST EXAMINATION: SI JOINTS CLINICAL INFORMATION: Severe bilateral SI joint pain COMPARISON: None. TECHNIQUE: Frontal view of the SI joints. Both oblique views of the SI joints FINDINGS: There is no diastases. No acute fracture. No suspicious focal lesion. There is no ankylosis of the SI joint on either side. There is no significant erosive change. There is partial sacralization of L5 on the right. There are proliferative osteophytes on the left at L5/S1. There is disc narrowing endplate sclerosis and some vacuum phenomena and at L4/L5. The visualized sacral neural arches appears smooth, intact and symmetric. No evidence of the surrounding soft tissue mass or collection Procedure Note Alexey Morton MD - 09/24/2024 EXAMINATION: SI JOINTS CLINICAL INFORMATION: Severe bilateral SI joint pain COMPARISON: None. TECHNIQUE: Frontal view of the SI joints. Both oblique views of the SI joints FINDINGS: There is no diastases. No acute fracture. No suspicious focal lesion. There is no ankylosis of the SI joint on either side. There is nosignificant erosive change. There is partial sacralization of L5 on the right. There are proliferativeosteophytes on the left at L5/S1. There is disc narrowing endplatesclerosis and some vacuum phenomena and at L4/L5. The visualized sacral neural arches appears smooth, intact andsymmetric. No evidence of the surrounding soft tissue mass or collection IMPRESSION: No specific radiographic evidence of sacroiliitis. -------- FINAL REPORT -------- Dictated By: Alexey Morton Dictated Date: 09/24/2024 11:44 ET Assigned Physician: Alexey Morton Reviewed and Electronically Signed By: Alexey Morton Signed Date: 09/24/2024 11:48 ET Workstation ID: [id number] Transcribed By: Self Edit Transcribed Date: 09/24/2024 11:44 ET Tutu Trivedi MD IMG XR PROCEDURES Final Result * HIV Screening (05/20/2024) HIV Screening abstracted Historical Provider HEALTH MAINTENANCE Final Result * Hepatitis C Screening (05/20/2024) Hepatitis C Screening abstracted Historical Provider HEALTH MAINTENANCE Final Result * Colonoscopy (08/15/2023) Colonoscopy no interpreta tion,abstr acted Anatomical Region Laterality Modality Other Historical Provider HEALTH MAINTENANCE Final Result * Cervical Cancer Screening: HPV (07/20/2023) Cervical Cancer Screening: HPV no interpreta tion,abstr acted Historical Provider HEALTH MAINTENANCE Final Result * NOEL SCREENING DIGITAL (06/05/2023 4:45 PM EDT) Anatomical Region Laterality Modality Mammography 06/02/2023 12:4 2 PM EDT Narrative 06/05/2023 4:45 PM EDT [facility] Diagnostic Imaging Department [address] [place] [address] Patient: ??MARÍA HPILLIPS ?/Age/Sex: 1965 - 57 - F Unit#: ??[id number] ? Location/Status: ??SPDIMAM/REG CLI ? Mnemonic/Ordering Site: ??DIGSC/SPMAM Ordering Physician: ??JANICE SCHAFER MD Noel Screening Digital - 06/02/23 - 1329 Report Status:Signed EXAM: [facility] Screening Digital EXAM DATE AND TIME: 06/02/2023 1:29 PM HISTORY: ??Screening. Excisional biopsy of the left breast in 2016, pathology benign. COMPARISON: ??02/27/19, 07/26/17, 08/08/16, 07/25/16, 08/28/07 TECHNIQUE: Bilateral digital breast tomosynthesis was performed in the CC and MLO projections. Computer aided detection with [employer] 3D 3.1 was employed. TISSUE DENSITY: a. The breasts are almost entirely fatty. FINDINGS: No suspicious masses, grouped microcalcifications, or areas of architectural distortion are seen. A skin scar is marked on the upper left breast. The vascularity is unremarkable. IMPRESSION: Stable mammographic appearance of the breasts. ??No evidence of malignancy is seen. A negative mammogram in the presence of a clinically suspicious palpable abnormality does not preclude the possibility of malignancy or alter the indications for biopsy. BI-RADS: ??Category 1: Negative RECOMMENDATION(S): 1: Routine screening mammogram BILATERAL in 1 year. 3341F, 7025F Dictating Physician: ??DAYAMI DIEHL MD Electronically Signed by: ??DAYAMI DIEHL MD Dic Date/Time: ??06/05/23 1644 Sign date/Time: ??06/05/23 1645 Procedure Note Dayami Diehl MD - 12/12/2023 [facility] Diagnostic Imaging Department [address] [place] [address] Patient: MARÍA PHILLIPS /Age/Sex: 1965 - 57 - F Unit#: [id number] Location/Status: [facility] CLI Mnemonic/Ordering Site: [facility] Ordering Physician: JANICE SCHAFER MD [facility] Screening Digital - 06/02/23 - 1329 Report Status:Signed EXAM: [facility] Screening Digital EXAM DATE AND TIME: 06/02/2023 1:29 PM HISTORY: Screening. Excisional biopsy of the left breast in 2016,pathology benign. COMPARISON: 02/27/19, 07/26/17, 08/08/16, 07/25/16, 08/28/07 TECHNIQUE: Bilateral digital breast tomosynthesis was performed in the CCand MLO projections. Computer aided detection with [employer] AI 3D 3.1was employed. TISSUE DENSITY: a. The breasts are almost entirely fatty. FINDINGS: No suspicious masses, grouped microcalcifications, or areas ofarchitectural distortion are seen. A skin scar is marked on the upper left breast. The vascularity is unremarkable. IMPRESSION: Stable mammographic appearance of the breasts. No evidence of malignancyis seen. A negative mammogram in the presence of a clinically suspicious palpable abnormality does not preclude the possibility of malignancy or alter the indications for biopsy. BI-RADS: Category 1: Negative RECOMMENDATION(S): 1: Routine screening mammogram BILATERAL in 1 year. 3341F, 7025F Dictating Physician: DAYAMI DIEHL MD Electronically Signed by: DAYAMI DIEHL MD Dic Date/Time: 06/05/23 164 Sign date/Time: 06/05/23 1645 Janice Schafer MD IMG BI PROCEDURES Final Re sult from Last 3 Months or Most Recently Relevant to Health Maintenance Insurance [facility] [id number] [facility] Care Teams Passenger Coach Driver Relationship Specialty Start Date End Date Araceli Augustin PA [address] [address] PCP - General 11/20/24
--- OUTSIDE RECORDS SUMMARY | 2024-12-24 09:00 | XMS_ITS | Encounter Summary ---
Author Organization [facility] Address [address] [place] [address] Care Team Providers Care [employer] Bus Driver Name Role Phone Araceli Augustin Primary Care Provider + Reason for Visit * Reason Onset Date Comments Arm Pain 11/27/2024 Encounter Details Date Type Department Care Team (Late st Contact Info) Description 11/27/2024 Telephone Orthopedic Surgery - [place] [address] [facility] [address] [place] [phone] Nichelle Archibald PA [address] [facility] [address] [place] [phone] Arm Pain Social History Tobacco Use Types Packs/Day Years [...] Entry Date Author No 10/26/2024 8:04 AM Monty Rivas RN documented in this encounter Progress Notes * Olga Skelton - 11/28/2024 7:54 AM EST I called and relayed this information to the patient. * Olga Skelton - 11/27/2024 3:46 PM EST Pt calling today, states she sent in this [email or web address] message earlier in the day : Since my last visit with you, my arm and wrist pain has become exceedingly severe. I can???t touchmy right forearm without pain and it???s getting extremely difficult to even hold a coffee cup or do dishes. I really think I need further evaluation. X-rays or MRI. This is not ok. Please advise Nichelle's next available is 12/06 but pt states she needs to be seen sooner because of the pain. Would Nichelle want to book her to be seen sooner? documented in this encounter Plan of Treatment Upcoming Encounters Date Type Department Care Team (Late st Contact Info) Description 12/26/2024 8:15 AM EST Appointment [facility] Xray [address] [place] [address] 12/27/2024 3:15 PM EST Office Visit Neurosurgery [facility] [address] [facility] [address] [place] [phone] Peggy Leon MD [address] [place], [place] [phone] documented as of this encounter Visit Diagnoses Not on filedocumented in this encounter Care Teams Interstate Bus Driver Relationship Specialty Start Date End Date Araceli Augustin PA [address] [facility] [address] [place] [address] PCP - General 11/20/24 documented as of this encounter
--- OUTSIDE RECORDS SUMMARY | 2024-12-24 09:00 | XMS_ITS ---
Author Organization [facility] Address [address] [phone] Care Team Providers Care Call Center Rn Name Role Phone LINDA KHAN Primary Care Provider [phone] Hugo Plata Unavailable [phone] REASON FOR VISIT Diagnosis Encounters Encounter Location Date Provider Diagnosis [facility] [address] [facility] [address] [place] [address] 10/24/2024 Hugo Plata Plan Of Treatment No Information Progress Notes * MIS OLSONOB:1965 (59 yo F)Acc No.[id number]:10/24/2024 Patient:?WHITNEY MARCUS :1965???Age:59 Y???Sex:Female Address:[address] [place] [address] * true * Date:? Generated for Renay bear/Hilton/eTransmitting on:?12/24/2024 09:00 AM EST
--- OUTSIDE RECORDS SUMMARY | 2024-12-24 09:00 | XMS_ITS | Patient Health Record ---
Author Organization [employer] [facility] Address [address] [place] [address] Care Team Providers Care Marble Supervisor Name Role Phone IKER ROBLERO PA-C Primary Care Provider Unav bianca LozanoLatonya lopez Unavailable [phone] Allergies Allergen (clinical drug ingredient) Drug/Non Drug Allergy documented on EMR Reaction Allergy Type Onset Date Status erythromycin ERYTHROMYCIN Skin Rash Drug Allergy A ctive Results Component Value Reference Range Notes Urinalysis Reviewed date:10/14/2024 01:33:35 PM Interpretation: Performing Lab: Notes/Report: PH 8.0 PROTEIN Neg GLUCOSE Neg BLOOD Neg Vitamin B1 (Thiamine), Blood -[id number] Reviewed date:12/14/2024 02:48:18 PM Interpretation: Performing Lab:[facility], [address], Phone - [phone], Director - Elsa Notes/Report: Test(s) 606288-Def. B1, Whole Blood was developed and its performance characteristics determined by [facility]. It has not been cleared or approved by the Food and Drug Administration. Vit. B1, Whole Blood 131.3 66.5-200.0 nmol/L Vitamin D, 43-[id number] Reviewed date:12/14/2024 02:47:53 PM Interpretation: Performing Lab:[facility], [address] [facility], [place], Phone - [phone], Director - Elsa Notes/Report: Test(s) 181728-Ylc. B1, Whole Blood was developed and its performance characteristics determined by [facility]. It has not been cleared or approved by the Food and Drug Administration. Vitamin D, 25-Hydroxy 48.0 30.0-100.0 ng/mL Vitamin D deficiency has been defined by the [place] [employer] and an Endocrine Society practice guideline as a level of serum 25-OH vitamin D less than 20 ng/mL (1,2). The Endocrine Society went on to further define vitamin D insufficiency as a level between 21 and 29 ng/mL (2). 1. IOM ([place] of [employer]). 2010. Dietary reference intakes for calcium and D. [place]: The National AcademOpenGov Press. 2. Angelica MF, Leonel NC, Sheeba MCKENNA, et al. Evaluation, treatment, and prevention of vitamin D deficiency: an Endocrine Society clinical practice guideline. JCEM. 2010; 96(7):1911-30. Triiodothyronine (T3), Free- [id number] Reviewed date:12/14/2024 02:48:08 PM Interpretation: Performing Lab:[facility] [address], Phone - [phone], Director - [facility] Notes/Report: Test(s) 385213-Mqq. B1, Whole Blood was developed and its performance characteristics determined by [facility]. It has not been cleared or approved by the Food and Drug Administration. Triiodothyronine (T3), Free 2.9 2.0-4.4 pg/mL TSH-[id number] Reviewed date:12/14/2024 02:48:55 PM Interpretation: Performing Lab:[facility] [address], Phone - [phone], Director - [facility] Notes/Report: Test(s) 714043-Ubk. B1, Whole Blood was developed and its performance characteristics determined by [facility]. It has not been cleared or approved by the Food and Drug Administration. TSH 0.492 0.450-4.500 uIU/mL Thyroxine (T4) Free, Direct- 675520 Reviewed date:12/14/2024 02:48:28 PM Interpretation: Performing Lab:[facility] [address], Phone - [phone], Director - [facility] Notes/Report: Test(s) 970086-Emg. B1, Whole Blood was developed and its performance characteristics determined by [facility]. It has not been cleared or approved by the Food and Drug Administration. T4,Free(Direct) 1.16 0.82-1.77 ng/dL Vitamin [id number] Reviewed date:12/14/2024 02:48:01 PM Interpretation: Performing Lab:[facility], [address], Phone - [phone], Director - Elsa Notes/Report: Test(s) 719013-Kiz. B1, Whole Blood was developed and its performance characteristics determined by [facility]. It has not been cleared or approved by the Food and Drug Administration. Vitamin B12 901 451-0685 pg/mL PDF Report Reviewed date:12/14/2024 02:47:46 PM Interpretation: Performing Lab:[facility], [facility], Phone - [phone], Director - Elsa Notes/Report: Test(s) 639523-Cpo. B1, Whole Blood was developed and its performance characteristics determined by [facility]. It has not been cleared or approved by the Food and Drug Administration. Reason For Referral No Information Medications Medication SIG (Take, Route, Frequency, Duration) Notes Start Date End Date Status Baclofen 10 MG 1 tablet as needed O rally Once a day Active Prometrium 100 MG 1 capsule at bedtime Orally Once a day for 90 days 12/09/2024 Active Escitalopram Oxalate 10 MG Oral for 30 Days Active ZyrTEC 10 MG 1 tablet Orally Once a day Active Turmeric 500 MG as directed Orally Active Vitamin C 500 MG as directed Orally Active Gabapentin 100 MG TAKE 1 CAPSULE BY [facility] 3 TIMES A DAY Oral for 30 Days Active Vitamin D3 25 MCG (1000 UT) as directed Orally Active Estradiol 0.0375 MG/24HR 1 patch to skin Transdermal Two times a Week for 90 days 12/09/2024 Active Social History Tobacco Use: Social History Observation [...] cigarettes a day do you smoke? 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 positive, high risk on vaginal specimen (372806508089596) Cervical high risk human papillomavirus (HPV) DNA test positive (R87.810) Active confirmed Problem Postmenopausal atrophic vaginitis (72714430) Postmenopausal atrophic vaginitis (N95.2) Active confirmed Problem Cervicovaginal cytology: Low grade squamous intraepithelial lesion (083933339) Low grade squamous intraepithelial lesion on cytologic smear of cervix (LGSIL) (R87.612) Active confirmed Problem Non-toxic single thyroid nodule (729940667) Nontoxic single thyroid nodule (E04.1) Active confirmed Problem Autoimmune thyroiditis (35066555) Autoimmune thyroiditis (E06.3) Active confirmed Problem Anxiety disorder (997936635) Anxiety disorder, unspecified (F41.9) Active confirmed Problem Epidermal cyst (341690007) Epidermal cyst (L72.0) Active confirmed Problem Rheumatoid arthritis (52529028) Rheumatoid arthritis, unspecified (M06.9) Active confirmed Problem Endometrial intraepithelial neoplasia (691762096) 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) Active confirmed Problem Postcoital bleeding (59503444) Postcoital and contact bleeding (N93.0) Active confirmed Problem Unspecified abnormal finding in specimens from female genital organs (R87.9) Active confirmed Problem Menopause (329932934) Menopausal and female climacteric states (N95.1) Active confirmed Problem Anxiety state (009426164) Anxiety state, unspecified (300.00) Active confirmed Major Vital Signs Temperature 97.4 degrees Fahrenheit 12/09/2024 Blood pressure diastolic 86 mm Hg 12/09/2024 Height 62 in 12/09/2024 Blood pressure systolic 128 mm Hg 12/09/2024 Weight 159 lbs 12/09/2024 BMI 29.08 kg/m2 12/09/2024 Encounters Encounter Location Date Provider Diagnosis [place] [address] [facility] [address] [address] 05/31/2024 Latonya Lozano [place] [address] [facility] [address] [address] 12/05/2024 Latonya Lozano [facility] [address] [address] 10/14/2024 Latonya Lozano Encounter for gynecological examination (general) (routine) without abnormal findings Z01.419 ; Encounter for screening mammogram for malignant neoplasm of breast Z12.31 ; Personal history of other diseases of the female genital tract Z87.42 ; Cervical high risk human papillomavirus (HPV) DNA test positive R87.810 and Postmenopausal atrophic vaginitis N95.[address] [address] 12/09/2024 Latonya Lozano Other fatigue R53.83 and Menopausal and female climacteric states N95.[address] [address] 12/03/2024 Latonya Lozano [facility] [address] [address] 12/12/2024 Latonya Lozano Assessments Encounter Date Diagnosis (ICD Code) Assessment Notes Treatment Notes Treatment Clinical Notes Section Notes 10/14/2024 Encounter for gynecological examination (general) (routine) without abnormal findings (ICD-10 - Z01.419) PAP TEST WAS DEFERRED. DALE WAS ADVISED TO USE PREMARIN CREAM REGULARLY FOR 2 WEEKS, STOP FOR A WEEK AND THEN RETURN FOR PAP TEST. THIS WILL MAKE SURE HER PAP TEST IS MORE ACCURATE. 12/09/2024 Other fatigue (ICD-10 - R53.83) DISCUSSED COMMON CAUSES OF FATIGUE INCLUDING THYROID ISSUES. 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 WORK UP FOR FATIGUE DID NOT INCLUDE THYROID FUNCTION TESTS AND SO THESE WERE ORDERED. APPARENTLY CBC, COMPREHENSIVE METABOLIC PROFILE AND OTHER TESTS WERE ORDERED BY HER PCP. WE WILL CHECK VIT LEVELS TODAY. 12/09/2024 Menopausal and female climacteric states (ICD-10 - N95.1) DISCUSSED MENOPAUSE AND S/SX OF THIS CHANGE. A LOT OF HER SYMPTOMS ARE NOT USUALLY FOUND IN MENOPAUSE BUT SOME ARE. DISCUSSED HRT, ITS BENEFIST AND RISKS. SHE HAS NO CONTRAINDICATIONS TO HRT AND ACCEPTS RISKS. DETAILED INSTRUCTIONS AND RX FOR HRT WERE GIVEN. CALL IF SHE HAS ANY ISSUES. IF SHE IS NOT SIGNIFICANTLY BETTER AND NEEDS TESTOSTERONE THERAPY, WILL REFER TO [facility]. WARNED PAT OF POSSIBLE VAGINAL BLEEDING. CALL IF SHE HAS ANY BLEEDING. 10/14/2024 Encounter for screening mammogram for malignant neoplasm of breast (ICD-10 - Z12.31) REGULAR MAMMOGRAMS AND SBE'S WERE RECOMMENDED. 10/14/2024 Personal history of other diseases of the female genital tract (ICD-10 - Z87.42) DISCUSSED PREVIOUS LSIL AND ASCUS ON PAP TEST WITH POSITIVE HR HPV AND ITS IMPLICATIONS. 10/14/2024 Cervical high risk human papillomavirus (HPV) DNA test positive (ICD-10 - R87.810) DISCUSSED POSITIVE HR HPV AND ITS IMPLICATIONS. 10/14/2024 Postmenopausal atrophic vaginitis (ICD-10 - N95.2) DISCUSSED FINDINGS, DX AND TX OPTIONS. SAMPLES OF PREMARIN CREAM AND INSTRUCTIONS WERE GIVEN. RTO FOR REPEAT PAP TEST AFTER USING THE CREAM TWICE WEEKLY FOR 2 WEEKS. Plan Of Treatment Pending Test Test Name Order Date Urinalysis 11/21/2017 RPR WITH REFLEX TESTING 06/27/2015 THIN PREP,HPV,KRISHNA IF HPV+ (>29YR)(DIAG) 11/21/2017 BONE DENSITY 05/04/2023 MM Digital Mammo Screening 10/14/2024 MM Digital Mammo Screening 05/04/2023 Insurance Providers Payer Name Payer Address Payer Phone Subscriber Number Group Number Insured Name Patient Relationship to Insured Coverage Start Date Coverage End Date [facility] [address] [address] [place] QUINONEZ [id number] MARCUS OLSON Self - patient is the insured Medical (General) History Medical History History ICD Code Anxiety disorder, unspecified F41.9 Other specified irregular menstruation N 92.5 Other specified abnormal uterine and vag inal bleeding N93.8 Postcoital and contact bleeding N93.0 Postmenopausal atrophic vaginitis N95.2 Endometrial intraepithelial neoplasia [E IN] N85.02 Unspecified abnormal finding in specimen s from female genital organs R87.9 Mastodynia N64.4 Autoimmune thyroiditis E06.3 Rheumatoid arthritis, unspecified M06.9 Anxiety disorder, unspecified F41.9 Epidermal cyst L72.0 Low grade squamous intraepit helial lesion on cytologic smear of cervix (LGSIL) R87.612 Cervical high risk human papillomavirus (HPV) DNA test positive R87.810 Atypical squamous cells of u ndetermined significance on cytologic smear of cervix (ASC-US) R87.610 Surgical History Surgery Date(Month/Year) Cholecystectomy Bilateral Eye Surgery Left Knee/ACL Repair Hernia Repair 07/2018 Left Wrist Scapholunate Instability Surg ey Colposcopy 07/07/23, 06/06/22 Lipoma Removed Upper Right Abdominal Wal l Colonoscopy 08/2023 Hospitalization History Reason Date(Month/Year) Diverticulitis See Surgical Hx 2 Vaginal Deliveries
--- OUTSIDE RECORDS SUMMARY | 2024-12-24 09:00 | XMS_ITS | Patient Health Record ---
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 Name Role Phone IKER ROBLERO [phone] ALLERGIES Allergen (clinical drug ingredient) Drug/Non Drug Allergy documented on EMR Reaction Allergy Type Onset Date Status Macrolides and Ketolides hives Drug Allergy Active RESULTS Component Value Reference Range Notes EKG (Not yet reviewed by pro vider) Interpretation: Performing Lab: Notes/Report: ECGDiastolicBP 68 ECGHr 73 ECGPRInterval 158 ECGPWaveAxis 34 ECGQRSDuration 78 ECGQrsWaveAxis 33 ECGQTcInterval 404 ECGQTInterval 382 ECGSystolicBP 116 ECGTWaveAxis 31 RR_DiastolicBP 0 RR_MaxRRInterval 0 RR_MeanHR 0 RR_MeanRRInterval 0 RR_MinRRInterval 0 RR_NumBeats 0 RR_NumNormalBeats 0 RR_SystolicBP 0 CBC WITH AUTO DIFFERENTIAL Reviewed date:10/28/2024 04:25:45 PM Interpretation: Performing Lab: Notes/Report: WBC 10.3 4.8-10.8 K/mcL RBC 4.10 3.80-4.80 M/mcL Hemoglobin 13.1 11.5-16.0 g/dL Hematocrit 40.1 35.0-47.0 % MCV 97.6 79.0-98.0 FL MCH 31.9 27.0-32.0 pcg MCHC 32.7 32.0-37.0 g/dL RDW 13.9 11.0-15.0 % Platelets 320 130-400 K/mcL MPV 9.6 7.0-11.0 FL NRBC 0.0 <1.0 % NRBC Absolute 0.00 <0.10 K/mcL Neutrophils Relative 68.0 Lymphocytes Relative 23.1 Monocytes Relative 7.1 Eosinophils Relative 0.9 Basophils Relative 0.4 Immature Granulocytes Relative 0.5 Neutrophils Absolute 7.00 1.50-7.00 K/mcL Lymphocytes Absolute 2.37 1.00-5.00 K/mcL Monocytes Absolute 0.73 0.20-1.00 K/mcL Eosinophils Absolute 0.09 0.00-0.50 K/mcL Basophils Absolute 0.04 0.00-0.20 K/mcL Immature Granulocytes Absolute 0.05 0.00-0.03 K/mcL LIPID PANEL WITH REFLEX TO D IRECT LDL Reviewed date:10/28/2024 04:25:18 PM Interpretation: Performing Lab: Notes/Report: Cholesterol 196 0-200 mg/dL Triglycerides 51 0-150 mg/dL HDL 111 >=40 mg/dL LDL Calculated 75 0-100 mg/dL VLDL Cholesterol Corby 10.2 Non HDL Chol. (LDL+VLDL) 85 <145 mg/dL Chol/HDL Ratio 1.8 0.0-4.4 VITAMIN D 25 HYDROXY Reviewed date:10/28/2024 04:25:14 PM Interpretation: Performing Lab: Notes/Report: Vit D, 25-Hydroxy 40.6 30.0-80.0 ng/mL THYROID STIMULATING HORMONE Reviewed date:10/28/2024 04:25:11 PM Interpretation: Performing Lab: Notes/Report: TSH 0.60 0.40-4.00 mcIU/mL COMPREHENSIVE METABOLIC PANE L Reviewed date:10/28/2024 04:25:35 PM Interpretation: Performing Lab: Notes/Report: Sodium 139 133-145 mmol/L Potassium 4.0 3.5-5.5 mmol/L Chloride 105 96-110 mmol/L CO2 29 21-32 mmol/L Anion Gap 5 3-11 Glucose 101 70-100 mg/dL BUN 12 5-25 mg/dL Creatinine 0.87 0.50-1.10 mg/dL eGFR 78 >=60 mL/min/1.73m2 Calculati on based on the?Chronic Kidney Disease Epidemiology Collaboration (CKD-EPI) equation refit?without adjustment for race. BUN/Creatinine Ratio 13.8 Calcium 9.5 8.5-10.5 mg/dL AST (SGOT) 13 10-42 unit/L ALT (SGPT) 15 10-60 unit/L Alkaline Phosphatase 100 42-121 unit/L Total Protein 6.9 6.0-8.0 g/dL Albumin 3.8 3.2-5.0 g/dL Total Bilirubin 0.3 0.0-1.4 mg/dL HEMOGLOBIN A1C Reviewed date:10/29/2024 11:55:59 AM Interpretation: Performing Lab: Notes/Report: Hemoglobin A1C 5.4 <6.5 % Mean Bld Glu Estim. 108 IRON AND TIBC Reviewed date:10/28/2024 04:25:22 PM Interpretation: Performing Lab: Notes/Report: Iron 41 40-150 mcg/dL TIBC 392 250-450 mcg/dL Iron Saturation 10 15-50 % FERRITIN Reviewed date:10/28/2024 04:25:26 PM Interpretation: Performing Lab: Notes/Report: Ferritin 28 8-252 ng/mL SEDIMENTATION RATE Reviewed date:10/28/2024 04:25:48 PM Interpretation: Performing Lab: Notes/Report: Sed Rate 4 0-30 mm/hr RHEUMATOID FACTOR Reviewed date:10/28/2024 04:25:29 PM Interpretation: Performing Lab: Notes/Report: Rheumatoid Factor 152.0 <15.0 I Unit/mL C REACTIVE PROTEIN, HIGH SEN SITIVITY Reviewed date:10/28/2024 04:25:39 PM Interpretation: Performing Lab: Notes/Report: CRP, High Sensitivity 0.58 Cardio CRP Relative Risk Categories Low <1.0 mg/L Average 1.0 - 3.0 mg/L High >3.0 mg/L Levels >10.0 mg/L should be ignored and repeated when the patient is stable and infection or inflammation is ruled out. HRT (estrogens) consistently increase cardio CRP levels. Risk estimates for women on HRT may need to be calibrated downward. CAMILO IFA WITH ARIS AND GIOVANNA SAMSON Reviewed date:11/01/2024 07:38:11 AM Interpretation: Performing Lab: Notes/Report: CAMILO Negative Negative XR CERVICAL SPINE 4-5 VIEWS Reviewed date:11/19/2024 04:14:57 PM Interpretation: Performing Lab: Notes/Report: Note See Note [facility], a member of [email or web address] Patient Name: MARÍA OLSON Date of : 1965 Reason for Exam: OTHER Exam Date: 11/18/2024 [id number] EST Report Status: Final Ordering Provider: IKER ROBLERO PCP: LINDA KHAN History: Bilateral arm/shoulder pain radiating into the [...] intact, with scattered arthritic changes. Bilateral bony neura l foraminal narrowing is seen. This is worst at C3-4, C5-6 and C6-7 on the left and at C3-4, C4-5 and C5-6 on the right, due predominantly to uncovertebral hypertrophy. The findings are similar to the neck CTA. The prevertebral sof t tissues, predental distance and odontoid process appear normal. IMPRESSION: Impression: Cervical spondylosis and degenerative disc disease, with bilateral bony neural foraminal narrowing, similar to the prior neck CTA. Telerad TL ([id number]) -------- FINAL REPOR T -------- Dictated By: Dayami Walker i Dictated Date: 11/19/2024 13:40 ET Assigned Physician: Dayami Diehl Reviewed and Electronically Signed By: Dayami Diehl Signed Date: 025 13:45 ET Workstation ID: [id number] Transcribed By: Self Edit Transcribed Date: 11/19/2024 13:40 ET BORRELIA BURGDORFERI ANTIBOD Y Reviewed date:12/06/2024 12:06:22 PM Interpretation: Performing Lab: Notes/Report: Lyme Ab Negative Negative No laboratory evidence of infection with B. burgdorferi (Lyme disease). Negative results may occur in patients recently infected (<=14 days) with B. burgdorferi. If recent infection is suspected, repeat testing on a new sample collected in 7-14 days is recommended. REASON FOR REFERRAL No Information MEDICATIONS Medication SIG (Take, Route, Fr equency, Duration) Notes Start Date End Date Status Ibuprofen 600 MG 1 tablet with food o r milk Orally Three times a day for 10 days 12/03/2024 Active LORazepam 1 MG TAKE 1 TABLET BY [facility] 3 TIMES A DAY IF NEEDED FOR ANXIETY FOR UP TO 5 DAYS. MAX DAILY AMOUNT 3 TAB Oral for 5 Days Active Gabapentin 100 MG 1 capsule at bedtime Orally twice daily Active Gabapentin 100 MG 2 capsules Orally tw ice daily for 30 days Active Cetirizine HCl 10 MG 1 tablet Orally Once a day Active Methocarbamol 750 MG 1 tablet Orally twice daily Active PROBLEMS Problem Type ICD Code Onset Dates Problem Status W/U Status Risk SNOMED Code Notes Problem Pain in right arm (M79.601) Active confirmed [id number] Problem Pain in left arm (M79.602) Active confirmed 964617318 Problem Annual physical exam (Z00.00) Active confirmed Annual health maintenance examination (66736973) Problem Vitamin D deficiency (E55.9) Active confirmed Vitamin D defic iency (00741578) Problem Tremor (R25.1) Active confirmed 4225056 4 Problem Diabetes mellitus screening (Z13.1) Active confirmed Diabetes mellit us screening (075122159) Problem Paresthesias (R20.2) Active confirmed 43164491 Problem Chest pain in adult (R07.9) Active confirmed Chest pain (78170664) Problem Depression with anxiety (F41.8) Active confirmed 867255004 Problem 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 77748295 Problem History of latent tuberculosis (Z86.15) Active confirmed 171140402 Problem History of recent fall (Z91.81) Active confirmed 035776380 Problem Screening for thyroid disorder (Z13.29) Active confirmed Thyroid disorde r screening (516369887) Problem Lipid screening (Z13.220) Active confirmed Lipid screening (446186834) Problem Rheumatoid arthritis involving multiple sites, unspecified whether rheumatoid factor present (M06.9) Active confirmed 635552573 Problem Rheumatoid arthritis involving multiple sites with positive rheumatoid factor (M05.79) Active confirmed 706941595 Problem Anxiety, generalized (F41.1) Active confirmed 09800991 Problem Arm paresthesia, left (R20.2) Active confirmed Skin sensation disturbance (16888674) Problem Cervical spondylosis (M47.812) Active confirmed 897458299 Problem Generalized weakness (R53.1) Active confirmed 59914863 Problem 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 confirmed 334178403 VITAL SIGNS Heart Rate 86 /min 11/18/2024 Oximetry 99 % 11/18/2024 Blood pressure diastolic 68 mm Hg 11/18/2024 Height 61 in 11/18/2024 Blood pressure systolic 116 mm Hg 11/18/2024 Weight 165 lbs 11/18/2024 BMI 31.17 kg/m2 11/18/2024 Encounters Encounter Location Date Provider Diagnosis [address] [address] 11/08/2024 IKER ROBLERO [address] [address] 12/02/2024 IKER ROBLERO Tremor R25.1 ; Cervical spondylosis M47.812 ; Rock's disease E06.3 ; Pain in right arm M79.601 ; Pain in left arm M79.602 ; History of recent fall Z91.81 ; Rheumatoid arthritis involving multiple sites with positive rheumatoid factor M05.79 ; Slipped rib syndrome M94.0 and Depression with anxiety F41.8 [address] [address] 12/04/2024 IKER ROBLERO Tremor R25.1 ; Cervical spondylosis M47.812 ; Rock's disease E06.3 ; Pain in right arm M79.601 ; Pain in left arm M79.602 ; History of recent fall Z91.81 ; Rheumatoid arthritis involving multiple sites with positive rheumatoid factor M05.79 ; Slipped rib syndrome M94.0 and Depression with anxiety F41.8 [address] [address] 10/28/2024 IKER ANNIKA Rheumatoid arthritis involving multiple sites, unspecified whether rheumatoid factor present M06.9 ; Tremor R25.1 ; Slipped rib syndrome M94.0 ; History of latent tuberculosis Z86.15 ; Depression with anxiety F41.8 and Rock's disease E06.3 [address] [address] 11/18/2024 IKER ROBLERO Tremor R25.1 ; Cervical spondylosis M47.812 ; Rock's disease E06.3 ; Pain in right arm M79.601 ; Pain in left arm M79.602 ; History of recent fall Z91.81 ; Rheumatoid arthritis involving multiple sites with positive rheumatoid factor M05.79 ; Slipped rib syndrome M94.0 and Depression with anxiety F41.[address] [place] [address] 10/29/2024 [facility] [address] [place] [address] 11/04/2024 [facility] [address] [place] [address] 11/07/2024 [facility] [address] [place] [address] 11/19/2024 [facility] [address] [place] [address] 12/03/2024 [facility] [address] [place] [address] 12/13/2024 [facility] [address] [place] [address] 12/13/2024 [facility] Generalized weakness R53.1 and Paresthesias R20.[address] [place] [address] 12/16/2024 [facility] [address] [place] [address] 12/09/2024 [facility] [address] [place] [address] 12/13/2024 [facility] [address] [place] [address] 12/14/2024 [facility] [address] [place] [address] 12/14/2024 [facility] [address] [place] [address] 12/15/2024 [facility] [address] [place] [address] 12/18/2024 [facility] ASSESSMENTS Encounter Date Diagnosis Assessment Notes Treatment Notes Treatment Clinical Notes Section Notes 10/28/2024 Rheumatoid arthritis involving multiple sites, unspecified whether rheumatoid factor present (ICD-10 - M06.9) María is a 59-year-old female with a PMH of RA, slipped rib syndrome, Rock's that presents today to establish care as new patient. #Labs: Baseline laboratory evaluation including CBC, CMP, lipid panel, hemoglobin A1c, TSH, and vitamin D ordered to be evaluated at time of CPE. #Tremor: Patient reports she feels she has recently developed a bilateral hand tremor. Denies any known factors that aggravate/improve the tremor. Also reports intermittent tingling on her left cheek which occasionally spreads over the bridge of her nose toward the right cheek. States the tingling is nonpainful. Denies difficulty speaking/word finding, localized weakness, difficulty walking, or fall/syncope. Mild resting tremor observed on exam. Exam otherwise WNL, no focal neurologic deficit observed. States she initially thought it was due to starting Lexapro. Contacted her psychiatrist who instructed her to discontinue the medication. Due to see neurology 11/05, due for EMG 11/20. Baseline labs ordered for continued evaluation. #Rheumatoid arthritis: Patient reports history of RA. Follows with senior instructional designer Dr. Clark out of [place]. Has been treated previously with Humira, Enbrel, and Remicade without symptom improvement. Experiences diffuse joint pain and fatigue. 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 States she was treated with rifampin x 4 months, course completed in September. ESR/CRP, RF, and CAMILO ordered. Records requested from rheumatology for continued evaluation. 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 States this was diagnosed by Dr. Duobn out of [place], [place]. Taking methocarbamol 750 mg 3 times daily and gabapentin 100 mg 3 times daily with moderate relief of discomfort. Patient awaiting surgical scheduling for correction. #Anxiety/depressi on: Patient reports she has had a challenging year as her slipped rib syndrome quite a long overlooked/undiag nosed. States she has felt many health care providers dismissed her symptoms has been a source of health anxiety and discouragement for her. Initiated on Lexapro 20 mg once daily which she has since discontinued due to development of tremor. Reports adequate support at home with . Denies SI/HI. Follows with psychiatric nurse practitioner Cassidy Quiroz as well as therapist - due to be seen today. #Rock's: Patient reports PMH of Rock's. Denies history of levothyroxine use. TSH with reflex T4 ordered. All questions answered to the patient's satisfaction. Patient demonstrates understanding of diagnosis and treatments discussed. Follow-up in 2 to 4 weeks, sooner should any questions/concern s arise. Case discussed with collaborating physician Velia Morrison who has reviewed the assessment/plan. Chart, medications, labs, and vital signs reviewed. Dictation completed with the use of [employer] voice recognition software, prone to medical misidentification s and grammatical errors. All errors are unintentional. Although the practitioner does try to identify and correct errors, some may be present. Please do not hesitate to contact the practitioner for clarification. Total time was 60 minutes spent with >50% on coordination of care and patient education. 10/28/2024 Tremor (ICD-10 - R25.1) María is a 59-year-old female with a PMH of RA, slipped rib syndrome, Rock's that presents today to establish care as new patient. #Labs: Baseline laboratory evaluation including CBC, CMP, lipid panel, hemoglobin A1c, TSH, and vitamin D ordered to be evaluated at time of CPE. #Tremor: Patient reports she feels she has recently developed a bilateral hand tremor. Denies any known factors that aggravate/improve the tremor. Also reports intermittent tingling on her left cheek which occasionally spreads over the bridge of her nose toward the right cheek. States the tingling is nonpainful. Denies difficulty speaking/word finding, localized weakness, difficulty walking, or fall/syncope. Mild resting tremor observed on exam. Exam otherwise WNL, no focal neurologic deficit observed. States she initially thought it was due to starting Lexapro. Contacted her psychiatrist who instructed her to discontinue the medication. Due to see neurology 11/05, due for EMG 11/20. Baseline labs ordered for continued evaluation. #Rheumatoid arthritis: Patient reports history of RA. Follows with senior instructional designer Dr. Clark out of [place]. Has been treated previously with Humira, Enbrel, and Remicade without symptom improvement. Experiences diffuse joint pain and fatigue. 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 States she was treated with rifampin x 4 months, course completed in September. ESR/CRP, RF, and CAMILO ordered. Records requested from rheumatology for continued evaluation. 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 States this was diagnosed by Dr. Dubon out of [place], [place]. Taking methocarbamol 750 mg 3 times daily and gabapentin 100 mg 3 times daily with moderate relief of discomfort. Patient awaiting surgical scheduling for correction. #Anxiety/depressi on: Patient reports she has had a challenging year as her slipped rib syndrome quite a long overlooked/undiag nosed. States she has felt many health care providers dismissed her symptoms has been a source of health anxiety and discouragement for her. Initiated on Lexapro 20 mg once daily which she has since discontinued due to development of tremor. Reports adequate support at home with . Denies SI/HI. Follows with psychiatric nurse practitioner Cassidy Quiroz as well as therapist - due to be seen today. #Rock's: Patient reports PMH of Rock's. Denies history of levothyroxine use. TSH with reflex T4 ordered. All questions answered to the patient's satisfaction. Patient demonstrates understanding of diagnosis and treatments discussed. Follow-up in 2 to 4 weeks, sooner should any questions/concern s arise. Case discussed with collaborating physician Velia Morrison who has reviewed the assessment/plan. Chart, medications, labs, and vital signs reviewed. Dictation completed with the use of [employer] voice recognition software, prone to medical misidentification s and grammatical errors. All errors are unintentional. Although the practitioner does try to identify and correct errors, some may be present. Please do not hesitate to contact the practitioner for clarification. Total time was 60 minutes spent with >50% on coordination of care and patient education. 11/18/2024 Tremor (ICD-10 - R25.1) María is a 59-year-old female with a PMH of RA, slipped rib syndrome, Rock's that presents today for follow-up visit #Labs: Baseline laboratory evaluation including CBC, CMP, lipid panel, hemoglobin A1c, TSH, and vitamin D drawn 10/28/2024, reviewed today. #Tremor/arm pain/cervical spondylosis: Patient reports continued bilateral hand tremor with recent development of bilateral arm/shoulder pain L>R. Patient initially thought this was due to starting Lexapro, she has since discontinued without movement and symptoms. Saw Vanesa Garza PA-C with neurosurgery 11/07/24. Per note review comprehensive workup has been performed including MRIs of the cervical, thoracic, and lumbar spine which revealed multilevel degenerative changes throughout the spine. Imaging of the cervical spine also significant for multilevel neural foraminal narrowing. Labs including Lyme titers and CPK WNL. Given numerous vague complaints of arm/shoulder pain EKG obtained in office which reveals NSR. There is low voltage QTc consistent with prior studies. No acute ischemic changes. Exam today reveals mild bilateral tremor. No focal neurologic deficits observed. Strength of bilateral upper extremities is 5/5, sensation intact. Mild TTP of cervical spine - flexion/extension /rotation of the neck appears unaffected. Given recent worsening of pain over the last 3 days and recent fall at work (see below) plan to proceed with XR of cervical spine to assess for acute injury. Neurosurgery recommending conservative treatment with PT, patient states she is not amenable to this due to severity of current pain. Currently taking gabapentin 100 mg twice daily with minimal to moderate relief of symptom - plan to increase dose to 200 mg twice daily for continued pain management. Discussed utility of steroids given suspected neurologic source of the patients discomfort, she states she cannot take them because she develops pain on her skin with use of steroids. Neurosurgery also recommending EMG, scheduled for 11/20/2024. #Recent fall: Patient seen at [facility] ED 11/02/2024 s/p fall at work. Denied fall onto outstretched hands, head strike, or LOC at that time. While in the emergency department CT of the right lower extremity and x-ray of the right hip were obtained neutral without acute abnormalities. #Rheumatoid arthritis: RF positive at 152, ESR/CRP/CAMILO WNL. Has been treated previously with Humira, Enbrel, and Remicade without symptom improvement. Experiences diffuse joint pain and fatigue. Follows with senior instructional designer Dr. Clark out of [place], records requested and not yet available for my review. 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 States this was diagnosed by Dr. Dubon out of [place], [place]. Taking methocarbamol 750 mg 3 times daily and gabapentin 100 mg twice daily with moderate relief of discomfort. Patient awaiting surgical scheduling for correction. #Anxiety/depressi on: Patient reports she has had a challenging year as her slipped rib syndrome quite a long overlooked/undiag nosed. States she has felt many health care providers dismissed her symptoms has been a source of health anxiety and discouragement for her. Initiated on Lexapro 20 mg once daily which she has since discontinued due to development of tremor. Reports adequate support at home with . Denies SI/HI. Follows with psychiatric nurse practitioner Cassidy Quiroz as well as therapist regularly. #Rock's: Patient reports PMH of Rock's. Denies history of levothyroxine use. TSH WNL at 0.6. All questions answered to the patient's satisfaction. Patient demonstrates understanding of diagnosis and treatments discussed. Follow-up in , sooner should any questions/concern s arise. Case discussed with collaborating physician Velia Morrison who has reviewed the assessment/plan. Chart, medications, labs, and vital signs reviewed. Dictation completed with the use of [employer] voice recognition software, prone to medical misidentification s and grammatical errors. All errors are unintentional. Although the practitioner does try to identify and correct errors, some may be present. Please do not hesitate to contact the practitioner for clarification. Total time was 60 minutes spent with >50% on coordination of care and patient education. 11/18/2024 Cervical spondylosis (ICD-10 - M47.812) María is a 59-year-old female with a PMH of RA, slipped rib syndrome, Rock's that presents today for follow-up visit #Labs: Baseline laboratory evaluation including CBC, CMP, lipid panel, hemoglobin A1c, TSH, and vitamin D drawn 10/28/2024, reviewed today. #Tremor/arm pain/cervical spondylosis: Patient reports continued bilateral hand tremor with recent development of bilateral arm/shoulder pain L>R. Patient initially thought this was due to starting Lexapro, she has since discontinued without movement and symptoms. Saw Vanesa Garza PA-C with neurosurgery 11/07/24. Per note review comprehensive workup has been performed including MRIs of the cervical, thoracic, and lumbar spine which revealed multilevel degenerative changes throughout the spine. Imaging of the cervical spine also significant for multilevel neural foraminal narrowing. Labs including Lyme titers and CPK WNL. Given numerous vague complaints of arm/shoulder pain EKG obtained in office which reveals NSR. There is low voltage QTc consistent with prior studies. No acute ischemic changes. Exam today reveals mild bilateral tremor. No focal neurologic deficits observed. Strength of bilateral upper extremities is 5/5, sensation intact. Mild TTP of cervical spine - flexion/extension /rotation of the neck appears unaffected. Given recent worsening of pain over the last 3 days and recent fall at work (see below) plan to proceed with XR of cervical spine to assess for acute injury. Neurosurgery recommending conservative treatment with PT, patient states she is not amenable to this due to severity of current pain. Currently taking gabapentin 100 mg twice daily with minimal to moderate relief of symptom - plan to increase dose to 200 mg twice daily for continued pain management. Discussed utility of steroids given suspected neurologic source of the patients discomfort, she states she cannot take them because she develops pain on her skin with use of steroids. Neurosurgery also recommending EMG, scheduled for 11/20/2024. #Recent fall: Patient seen at [facility] ED 11/02/2024 s/p fall at work. Denied fall onto outstretched hands, head strike, or LOC at that time. While in the emergency department CT of the right lower extremity and x-ray of the right hip were obtained neutral without acute abnormalities. #Rheumatoid arthritis: RF positive at 152, ESR/CRP/CAMILO WNL. Has been treated previously with Humira, Enbrel, and Remicade without symptom improvement. Experiences diffuse joint pain and fatigue. Follows with senior instructional designer Dr. Clark out of [place], records requested and not yet available for my review. 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 States this was diagnosed by Dr. Dubon out of [place], [place]. Taking methocarbamol 750 mg 3 times daily and gabapentin 100 mg twice daily with moderate relief of discomfort. Patient awaiting surgical scheduling for correction. #Anxiety/depressi on: Patient reports she has had a challenging year as her slipped rib syndrome quite a long overlooked/undiag nosed. States she has felt many health care providers dismissed her symptoms has been a source of health anxiety and discouragement for her. Initiated on Lexapro 20 mg once daily which she has since discontinued due to development of tremor. Reports adequate support at home with . Denies SI/HI. Follows with psychiatric nurse practitioner Cassidy Quiroz as well as therapist regularly. #Rock's: Patient reports PMH of Rock's. Denies history of levothyroxine use. TSH WNL at 0.6. All questions answered to the patient's satisfaction. Patient demonstrates understanding of diagnosis and treatments discussed. Follow-up in , sooner should any questions/concern s arise. Case discussed with collaborating physician Velia Morrison who has reviewed the assessment/plan. Chart, medications, labs, and vital signs reviewed. Dictation completed with the use of [employer] voice recognition software, prone to medical misidentification s and grammatical errors. All errors are unintentional. Although the practitioner does try to identify and correct errors, some may be present. Please do not hesitate to contact the practitioner for clarification. Total time was 60 minutes spent with >50% on coordination of care and patient education. 12/02/2024 Tremor (ICD-10 - R25.1) 12/04/2024 Tremor (ICD-10 - R25.1) María is a 59-year-old female with a PMH of RA, slipped rib syndrome, Rock's that presents today for follow-up visit #Labs: Baseline laboratory evaluation including CBC, CMP, lipid panel, hemoglobin A1c, TSH, and vitamin D drawn 10/28/2024, reviewed today. #Tremor/arm pain/cervical spondylosis: Patient reports continued bilateral hand tremor with recent development of bilateral arm/shoulder pain L>R. Patient initially thought this was due to starting Lexapro, she has since discontinued without movement and symptoms. Saw Vanesa Garza PA-C with neurosurgery 11/07/24. Per note review comprehensive workup has been performed including MRIs of the cervical, thoracic, and lumbar spine which revealed multilevel degenerative changes throughout the spine. Imaging of the cervical spine also significant for multilevel neural foraminal narrowing. Labs including Lyme titers and CPK WNL. Given numerous vague complaints of arm/shoulder pain EKG obtained in office which reveals NSR. There is low voltage QTc consistent with prior studies. No acute ischemic changes. Exam today reveals mild bilateral tremor. No focal neurologic deficits observed. Strength of bilateral upper extremities is 5/5, sensation intact. Mild TTP of cervical spine - flexion/extension /rotation of the neck appears unaffected. Given recent worsening of pain over the last 3 days and recent fall at work (see below) plan to proceed with XR of cervical spine to assess for acute injury. Neurosurgery recommending conservative treatment with PT, patient states she is not amenable to this due to severity of current pain. Currently taking gabapentin 100 mg twice daily with minimal to moderate relief of symptom - plan to increase dose to 200 mg twice daily for continued pain management. Discussed utility of steroids given suspected neurologic source of the patients discomfort, she states she cannot take them because she develops pain on her skin with use of steroids. Neurosurgery also recommending EMG, scheduled for 11/20/2024. #Recent fall: Patient seen at [facility] ED 11/02/2024 s/p fall at work. Denied fall onto outstretched hands, head strike, or LOC at that time. While in the emergency department CT of the right lower extremity and x-ray of the right hip were obtained neutral without acute abnormalities. #Rheumatoid arthritis: RF positive at 152, ESR/CRP/CAMILO WNL. Has been treated previously with Humira, Enbrel, and Remicade without symptom improvement. Experiences diffuse joint pain and fatigue. Follows with senior instructional designer Dr. Clark out of [place], records requested and not yet available for my review. 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 States this was diagnosed by Dr. Dubon out of [place], [place]. Taking methocarbamol 750 mg 3 times daily and gabapentin 100 mg twice daily with moderate relief of discomfort. Patient awaiting surgical scheduling for correction. #Anxiety/depressi on: Patient reports she has had a challenging year as her slipped rib syndrome quite a long overlooked/undiag nosed. States she has felt many health care providers dismissed her symptoms has been a source of health anxiety and discouragement for her. Initiated on Lexapro 20 mg once daily which she has since discontinued due to development of tremor. Reports adequate support at home with . Denies SI/HI. Follows with psychiatric nurse practitioner Cassidy Quiroz as well as therapist regularly. #Rock's: Patient reports PMH of Rock's. Denies history of levothyroxine use. TSH WNL at 0.6. All questions answered to the patient's satisfaction. Patient demonstrates understanding of diagnosis and treatments discussed. Follow-up in , sooner should any questions/concern s arise. Case discussed with collaborating physician Velia Morrison who has reviewed the assessment/plan. Chart, medications, labs, and vital signs reviewed. Dictation completed with the use of [employer] voice recognition software, prone to medical misidentification s and grammatical errors. All errors are unintentional. Although the practitioner does try to identify and correct errors, some may be present. Please do not hesitate to contact the practitioner for clarification. Total time was 60 minutes spent with >50% on coordination of care and patient education. 12/13/2024 Generalized weakness (ICD-10 - R53.1) 12/13/2024 Paresthesias (ICD-10 - R20.2) 12/04/2024 Cervical spondylosis (ICD-10 - M47.812) María is a 59-year-old female with a PMH of RA, slipped rib syndrome, Rock's that presents today for follow-up visit #Labs: Baseline laboratory evaluation including CBC, CMP, lipid panel, hemoglobin A1c, TSH, and vitamin D drawn 10/28/2024, reviewed today. #Tremor/arm pain/cervical spondylosis: Patient reports continued bilateral hand tremor with recent development of bilateral arm/shoulder pain L>R. Patient initially thought this was due to starting Lexapro, she has since discontinued without movement and symptoms. Saw Vanesa Garza PA-C with neurosurgery 11/07/24. Per note review comprehensive workup has been performed including MRIs of the cervical, thoracic, and lumbar spine which revealed multilevel degenerative changes throughout the spine. Imaging of the cervical spine also significant for multilevel neural foraminal narrowing. Labs including Lyme titers and CPK WNL. Given numerous vague complaints of arm/shoulder pain EKG obtained in office which reveals NSR. There is low voltage QTc consistent with prior studies. No acute ischemic changes. Exam today reveals mild bilateral tremor. No focal neurologic deficits observed. Strength of bilateral upper extremities is 5/5, sensation intact. Mild TTP of cervical spine - flexion/extension /rotation of the neck appears unaffected. Given recent worsening of pain over the last 3 days and recent fall at work (see below) plan to proceed with XR of cervical spine to assess for acute injury. Neurosurgery recommending conservative treatment with PT, patient states she is not amenable to this due to severity of current pain. Currently taking gabapentin 100 mg twice daily with minimal to moderate relief of symptom - plan to increase dose to 200 mg twice daily for continued pain management. Discussed utility of steroids given suspected neurologic source of the patients discomfort, she states she cannot take them because she develops pain on her skin with use of steroids. Neurosurgery also recommending EMG, scheduled for 11/20/2024. #Recent fall: Patient seen at [facility] ED 11/02/2024 s/p fall at work. Denied fall onto outstretched hands, head strike, or LOC at that time. While in the emergency department CT of the right lower extremity and x-ray of the right hip were obtained neutral without acute abnormalities. #Rheumatoid arthritis: RF positive at 152, ESR/CRP/CAMILO WNL. Has been treated previously with Humira, Enbrel, and Remicade without symptom improvement. Experiences diffuse joint pain and fatigue. Follows with senior instructional designer Dr. Clark out of [place], records requested and not yet available for my review. 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 States this was diagnosed by Dr. Dubon out of [place], [place]. Taking methocarbamol 750 mg 3 times daily and gabapentin 100 mg twice daily with moderate relief of discomfort. Patient awaiting surgical scheduling for correction. #Anxiety/depressi on: Patient reports she has had a challenging year as her slipped rib syndrome quite a long overlooked/undiag nosed. States she has felt many health care providers dismissed her symptoms has been a source of health anxiety and discouragement for her. Initiated on Lexapro 20 mg once daily which she has since discontinued due to development of tremor. Reports adequate support at home with . Denies SI/HI. Follows with psychiatric nurse practitioner Cassidy Quiroz as well as therapist regularly. #Rock's: Patient reports PMH of Rock's. Denies history of levothyroxine use. TSH WNL at 0.6. All questions answered to the patient's satisfaction. Patient demonstrates understanding of diagnosis and treatments discussed. Follow-up in , sooner should any questions/concern s arise. Case discussed with collaborating physician Velia Morrison who has reviewed the assessment/plan. Chart, medications, labs, and vital signs reviewed. Dictation completed with the use of [employer] voice recognition software, prone to medical misidentification s and grammatical errors. All errors are unintentional. Although the practitioner does try to identify and correct errors, some may be present. Please do not hesitate to contact the practitioner for clarification. Total time was 60 minutes spent with >50% on coordination of care and patient education. 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 #Tremor/arm pain/cervical spondylosis: Patient reports continued bilateral hand tremor with recent development of bilateral arm/shoulder pain L>R. Patient initially thought this was due to starting Lexapro, she has since discontinued without movement and symptoms. Saw Vanesa Garza PA-C with neurosurgery 11/07/24. Per note review comprehensive workup has been performed including MRIs of the cervical, thoracic, and lumbar spine which revealed multilevel degenerative changes throughout the spine. Imaging of the cervical spine also significant for multilevel neural foraminal narrowing. Labs including Lyme titers and CPK WNL. Given numerous vague complaints of arm/shoulder pain EKG obtained in office which reveals NSR. There is low voltage QTc consistent with prior studies. No acute ischemic changes. Exam today reveals mild bilateral tremor. No focal neurologic deficits observed. Strength of bilateral upper extremities is 5/5, sensation intact. Mild TTP of cervical spine - flexion/extension /rotation of the neck appears unaffected. Given recent worsening of pain over the last 3 days and recent fall at work (see below) plan to proceed with XR of cervical spine to assess for acute injury. Neurosurgery recommending conservative treatment with PT, patient states she is not amenable to this due to severity of current pain. Currently taking gabapentin 100 mg twice daily with minimal to moderate relief of symptom - plan to increase dose to 200 mg twice daily for continued pain management. Discussed utility of steroids given suspected neurologic source of the patients discomfort, she states she cannot take them because she develops pain on her skin with use of steroids. Neurosurgery also recommending EMG, scheduled for 11/20/2024. #Recent fall: Patient seen at [facility] ED 11/02/2024 s/p fall at work. Denied fall onto outstretched hands, head strike, or LOC at that time. While in the emergency department CT of the right lower extremity and x-ray of the right hip were obtained neutral without acute abnormalities. #Rheumatoid arthritis: RF positive at 152, ESR/CRP/CAMILO WNL. Has been treated previously with Humira, Enbrel, and Remicade without symptom improvement. Experiences diffuse joint pain and fatigue. Follows with senior instructional designer Dr. Clark out of [place], records requested and not yet available for my review. 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 States this was diagnosed by Dr. Dubon out of [place], [place]. Taking methocarbamol 750 mg 3 times daily and gabapentin 100 mg twice daily with moderate relief of discomfort. Patient awaiting surgical scheduling for correction. #Anxiety/depressi on: Patient reports she has had a challenging year as her slipped rib syndrome quite a long overlooked/undiag nosed. States she has felt many health care providers dismissed her symptoms has been a source of health anxiety and discouragement for her. Initiated on Lexapro 20 mg once daily which she has since discontinued due to development of tremor. Reports adequate support at home with . Denies SI/HI. Follows with psychiatric nurse practitioner Cassidy Quiroz as well as therapist regularly. #Rock's: Patient reports PMH of Rock's. Denies history of levothyroxine use. TSH WNL at 0.6. All questions answered to the patient's satisfaction. Patient demonstrates understanding of diagnosis and treatments discussed. Follow-up in , sooner should any questions/concern s arise. Case discussed with collaborating physician Velia Morrison who has reviewed the assessment/plan. Chart, medications, labs, and vital signs reviewed. Dictation completed with the use of [employer] voice recognition software, prone to medical misidentification s and grammatical errors. All errors are unintentional. Although the practitioner does try to identify and correct errors, some may be present. Please do not hesitate to contact the practitioner for clarification. Total time was 60 minutes spent with >50% on coordination of care and patient education. 10/28/2024 Slipped rib syndrome (ICD-10 - M94.0) María is a 59-year-old female with a PMH of RA, slipped rib syndrome, Rock's that presents today to establish care as new patient. #Labs: Baseline laboratory evaluation including CBC, CMP, lipid panel, hemoglobin A1c, TSH, and vitamin D ordered to be evaluated at time of CPE. #Tremor: Patient reports she feels she has recently developed a bilateral hand tremor. Denies any known factors that aggravate/improve the tremor. Also reports intermittent tingling on her left cheek which occasionally spreads over the bridge of her nose toward the right cheek. States the tingling is nonpainful. Denies difficulty speaking/word finding, localized weakness, difficulty walking, or fall/syncope. Mild resting tremor observed on exam. Exam otherwise WNL, no focal neurologic deficit observed. States she initially thought it was due to starting Lexapro. Contacted her psychiatrist who instructed her to discontinue the medication. Due to see neurology 11/05, due for EMG 11/20. Baseline labs ordered for continued evaluation. #Rheumatoid arthritis: Patient reports history of RA. Follows with senior instructional designer Dr. Clark out of [place]. Has been treated previously with Humira, Enbrel, and Remicade without symptom improvement. Experiences diffuse joint pain and fatigue. 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 States she was treated with rifampin x 4 months, course completed in September. ESR/CRP, RF, and CAMILO ordered. Records requested from rheumatology for continued evaluation. 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 States this was diagnosed by Dr. Dubon out of [place], [place]. Taking methocarbamol 750 mg 3 times daily and gabapentin 100 mg 3 times daily with moderate relief of discomfort. Patient awaiting surgical scheduling for correction. #Anxiety/depressi on: Patient reports she has had a challenging year as her slipped rib syndrome quite a long overlooked/undiag nosed. States she has felt many health care providers dismissed her symptoms has been a source of health anxiety and discouragement for her. Initiated on Lexapro 20 mg once daily which she has since discontinued due to development of tremor. Reports adequate support at home with . Denies SI/HI. Follows with psychiatric nurse practitioner Cassidy Quiroz as well as therapist - due to be seen today. #Rock's: Patient reports PMH of Rock's. Denies history of levothyroxine use. TSH with reflex T4 ordered. All questions answered to the patient's satisfaction. Patient demonstrates understanding of diagnosis and treatments discussed. Follow-up in 2 to 4 weeks, sooner should any questions/concern s arise. Case discussed with collaborating physician Velia Morrison who has reviewed the assessment/plan. Chart, medications, labs, and vital signs reviewed. Dictation completed with the use of [employer] voice recognition software, prone to medical misidentification s and grammatical errors. All errors are unintentional. Although the practitioner does try to identify and correct errors, some may be present. Please do not hesitate to contact the practitioner for clarification. Total time was 60 minutes spent with >50% on coordination of care and patient education. 11/18/2024 Pain in right arm (ICD-10 - M79.601) María is a 59-year-old female with a PMH of RA, slipped rib syndrome, Rock's that presents today for follow-up visit #Labs: Baseline laboratory evaluation including CBC, CMP, lipid panel, hemoglobin A1c, TSH, and vitamin D drawn 10/28/2024, reviewed today. #Tremor/arm pain/cervical spondylosis: Patient reports continued bilateral hand tremor with recent development of bilateral arm/shoulder pain L>R. Patient initially thought this was due to starting Lexapro, she has since discontinued without movement and symptoms. Saw Vanesa Garza PA-C with neurosurgery 11/07/24. Per note review comprehensive workup has been performed including MRIs of the cervical, thoracic, and lumbar spine which revealed multilevel degenerative changes throughout the spine. Imaging of the cervical spine also significant for multilevel neural foraminal narrowing. Labs including Lyme titers and CPK WNL. Given numerous vague complaints of arm/shoulder pain EKG obtained in office which reveals NSR. There is low voltage QTc consistent with prior studies. No acute ischemic changes. Exam today reveals mild bilateral tremor. No focal neurologic deficits observed. Strength of bilateral upper extremities is 5/5, sensation intact. Mild TTP of cervical spine - flexion/extension /rotation of the neck appears unaffected. Given recent worsening of pain over the last 3 days and recent fall at work (see below) plan to proceed with XR of cervical spine to assess for acute injury. Neurosurgery recommending conservative treatment with PT, patient states she is not amenable to this due to severity of current pain. Currently taking gabapentin 100 mg twice daily with minimal to moderate relief of symptom - plan to increase dose to 200 mg twice daily for continued pain management. Discussed utility of steroids given suspected neurologic source of the patients discomfort, she states she cannot take them because she develops pain on her skin with use of steroids. Neurosurgery also recommending EMG, scheduled for 11/20/2024. #Recent fall: Patient seen at [facility] ED 11/02/2024 s/p fall at work. Denied fall onto outstretched hands, head strike, or LOC at that time. While in the emergency department CT of the right lower extremity and x-ray of the right hip were obtained neutral without acute abnormalities. #Rheumatoid arthritis: RF positive at 152, ESR/CRP/CAMILO WNL. Has been treated previously with Humira, Enbrel, and Remicade without symptom improvement. Experiences diffuse joint pain and fatigue. Follows with senior instructional designer Dr. Clark out of [place], records requested and not yet available for my review. 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 States this was diagnosed by Dr. Dubon out of [place], [place]. Taking methocarbamol 750 mg 3 times daily and gabapentin 100 mg twice daily with moderate relief of discomfort. Patient awaiting surgical scheduling for correction. #Anxiety/depressi on: Patient reports she has had a challenging year as her slipped rib syndrome quite a long overlooked/undiag nosed. States she has felt many health care providers dismissed her symptoms has been a source of health anxiety and discouragement for her. Initiated on Lexapro 20 mg once daily which she has since discontinued due to development of tremor. Reports adequate support at home with . Denies SI/HI. Follows with psychiatric nurse practitioner Cassidy Quiroz as well as therapist regularly. #Rock's: Patient reports PMH of Rock's. Denies history of levothyroxine use. TSH WNL at 0.6. All questions answered to the patient's satisfaction. Patient demonstrates understanding of diagnosis and treatments discussed. Follow-up in , sooner should any questions/concern s arise. Case discussed with collaborating physician Velia Morrison who has reviewed the assessment/plan. Chart, medications, labs, and vital signs reviewed. Dictation completed with the use of [employer] voice recognition software, prone to medical misidentification s and grammatical errors. All errors are unintentional. Although the practitioner does try to identify and correct errors, some may be present. Please do not hesitate to contact the practitioner for clarification. Total time was 60 minutes spent with >50% on coordination of care and patient education. 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 #Tremor/arm pain/cervical spondylosis: Patient reports continued bilateral hand tremor with recent development of bilateral arm/shoulder pain L>R. Patient initially thought this was due to starting Lexapro, she has since discontinued without movement and symptoms. Saw Vanesa aGrza PA-C with neurosurgery 11/07/24. Per note review comprehensive workup has been performed including MRIs of the cervical, thoracic, and lumbar spine which revealed multilevel degenerative changes throughout the spine. Imaging of the cervical spine also significant for multilevel neural foraminal narrowing. Labs including Lyme titers and CPK WNL. Given numerous vague complaints of arm/shoulder pain EKG obtained in office which reveals NSR. There is low voltage QTc consistent with prior studies. No acute ischemic changes. Exam today reveals mild bilateral tremor. No focal neurologic deficits observed. Strength of bilateral upper extremities is 5/5, sensation intact. Mild TTP of cervical spine - flexion/extension /rotation of the neck appears unaffected. Given recent worsening of pain over the last 3 days and recent fall at work (see below) plan to proceed with XR of cervical spine to assess for acute injury. Neurosurgery recommending conservative treatment with PT, patient states she is not amenable to this due to severity of current pain. Currently taking gabapentin 100 mg twice daily with minimal to moderate relief of symptom - plan to increase dose to 200 mg twice daily for continued pain management. Discussed utility of steroids given suspected neurologic source of the patients discomfort, she states she cannot take them because she develops pain on her skin with use of steroids. Neurosurgery also recommending EMG, scheduled for 11/20/2024. #Recent fall: Patient seen at [facility] ED 11/02/2024 s/p fall at work. Denied fall onto outstretched hands, head strike, or LOC at that time. While in the emergency department CT of the right lower extremity and x-ray of the right hip were obtained neutral without acute abnormalities. #Rheumatoid arthritis: RF positive at 152, ESR/CRP/CAMILO WNL. Has been treated previously with Humira, Enbrel, and Remicade without symptom improvement. Experiences diffuse joint pain and fatigue. Follows with senior instructional designer Dr. Clark out of [place], records requested and not yet available for my review. 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 States this was diagnosed by Dr. Dubon out of [place], [place]. Taking methocarbamol 750 mg 3 times daily and gabapentin 100 mg twice daily with moderate relief of discomfort. Patient awaiting surgical scheduling for correction. #Anxiety/depressi on: Patient reports she has had a challenging year as her slipped rib syndrome quite a long overlooked/undiag nosed. States she has felt many health care providers dismissed her symptoms has been a source of health anxiety and discouragement for her. Initiated on Lexapro 20 mg once daily which she has since discontinued due to development of tremor. Reports adequate support at home with . Denies SI/HI. Follows with psychiatric nurse practitioner Cassidy Quiroz as well as therapist regularly. #Rock's: Patient reports PMH of Rock's. Denies history of levothyroxine use. TSH WNL at 0.6. All questions answered to the patient's satisfaction. Patient demonstrates understanding of diagnosis and treatments discussed. Follow-up in , sooner should any questions/concern s arise. Case discussed with collaborating physician Velia Morrison who has reviewed the assessment/plan. Chart, medications, labs, and vital signs reviewed. Dictation completed with the use of [employer] voice recognition software, prone to medical misidentification s and grammatical errors. All errors are unintentional. Although the practitioner does try to identify and correct errors, some may be present. Please do not hesitate to contact the practitioner for clarification. Total time was 60 minutes spent with >50% on coordination of care and patient education. 10/28/2024 History of latent tuberculosis (ICD-10 - Z86.15) María is a 59-year-old female with a PMH of RA, slipped rib syndrome, Rock's that presents today to establish care as new patient. #Labs: Baseline laboratory evaluation including CBC, CMP, lipid panel, hemoglobin A1c, TSH, and vitamin D ordered to be evaluated at time of CPE. #Tremor: Patient reports she feels she has recently developed a bilateral hand tremor. Denies any known factors that aggravate/improve the tremor. Also reports intermittent tingling on her left cheek which occasionally spreads over the bridge of her nose toward the right cheek. States the tingling is nonpainful. Denies difficulty speaking/word finding, localized weakness, difficulty walking, or fall/syncope. Mild resting tremor observed on exam. Exam otherwise WNL, no focal neurologic deficit observed. States she initially thought it was due to starting Lexapro. Contacted her psychiatrist who instructed her to discontinue the medication. Due to see neurology 11/05, due for EMG 11/20. Baseline labs ordered for continued evaluation. #Rheumatoid arthritis: Patient reports history of RA. Follows with senior instructional designer Dr. Clark out of [place]. Has been treated previously with Humira, Enbrel, and Remicade without symptom improvement. Experiences diffuse joint pain and fatigue. 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 States she was treated with rifampin x 4 months, course completed in September. ESR/CRP, RF, and CAMILO ordered. Records requested from rheumatology for continued evaluation. 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 States this was diagnosed by Dr. Dubon out of [place], [place]. Taking methocarbamol 750 mg 3 times daily and gabapentin 100 mg 3 times daily with moderate relief of discomfort. Patient awaiting surgical scheduling for correction. #Anxiety/depressi on: Patient reports she has had a challenging year as her slipped rib syndrome quite a long overlooked/undiag nosed. States she has felt many health care providers dismissed her symptoms has been a source of health anxiety and discouragement for her. Initiated on Lexapro 20 mg once daily which she has since discontinued due to development of tremor. Reports adequate support at home with . Denies SI/HI. Follows with psychiatric nurse practitioner Cassidy Quiroz as well as therapist - due to be seen today. #Rock's: Patient reports PMH of Rock's. Denies history of levothyroxine use. TSH with reflex T4 ordered. All questions answered to the patient's satisfaction. Patient demonstrates understanding of diagnosis and treatments discussed. Follow-up in 2 to 4 weeks, sooner should any questions/concern s arise. Case discussed with collaborating physician Velia Morrison who has reviewed the assessment/plan. Chart, medications, labs, and vital signs reviewed. Dictation completed with the use of [employer] voice recognition software, prone to medical misidentification s and grammatical errors. All errors are unintentional. Although the practitioner does try to identify and correct errors, some may be present. Please do not hesitate to contact the practitioner for clarification. Total time was 60 minutes spent with >50% on coordination of care and patient education. 12/04/2024 Pain in right arm (ICD-10 - M79.601) María is a 59-year-old female with a PMH of RA, slipped rib syndrome, Rock's that presents today for follow-up visit #Labs: Baseline laboratory evaluation including CBC, CMP, lipid panel, hemoglobin A1c, TSH, and vitamin D drawn 10/28/2024, reviewed today. #Tremor/arm pain/cervical spondylosis: Patient reports continued bilateral hand tremor with recent development of bilateral arm/shoulder pain L>R. Patient initially thought this was due to starting Lexapro, she has since discontinued without movement and symptoms. Saw Vanesa Garza PA-C with neurosurgery 11/07/24. Per note review comprehensive workup has been performed including MRIs of the cervical, thoracic, and lumbar spine which revealed multilevel degenerative changes throughout the spine. Imaging of the cervical spine also significant for multilevel neural foraminal narrowing. Labs including Lyme titers and CPK WNL. Given numerous vague complaints of arm/shoulder pain EKG obtained in office which reveals NSR. There is low voltage QTc consistent with prior studies. No acute ischemic changes. Exam today reveals mild bilateral tremor. No focal neurologic deficits observed. Strength of bilateral upper extremities is 5/5, sensation intact. Mild TTP of cervical spine - flexion/extension /rotation of the neck appears unaffected. Given recent worsening of pain over the last 3 days and recent fall at work (see below) plan to proceed with XR of cervical spine to assess for acute injury. Neurosurgery recommending conservative treatment with PT, patient states she is not amenable to this due to severity of current pain. Currently taking gabapentin 100 mg twice daily with minimal to moderate relief of symptom - plan to increase dose to 200 mg twice daily for continued pain management. Discussed utility of steroids given suspected neurologic source of the patients discomfort, she states she cannot take them because she develops pain on her skin with use of steroids. Neurosurgery also recommending EMG, scheduled for 11/20/2024. #Recent fall: Patient seen at [facility] ED 11/02/2024 s/p fall at work. Denied fall onto outstretched hands, head strike, or LOC at that time. While in the emergency department CT of the right lower extremity and x-ray of the right hip were obtained neutral without acute abnormalities. #Rheumatoid arthritis: RF positive at 152, ESR/CRP/CAMILO WNL. Has been treated previously with Humira, Enbrel, and Remicade without symptom improvement. Experiences diffuse joint pain and fatigue. Follows with senior instructional designer Dr. Clark out of [place], records requested and not yet available for my review. 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 States this was diagnosed by Dr. Dubon out of [place], [place]. Taking methocarbamol 750 mg 3 times daily and gabapentin 100 mg twice daily with moderate relief of discomfort. Patient awaiting surgical scheduling for correction. #Anxiety/depressi on: Patient reports she has had a challenging year as her slipped rib syndrome quite a long overlooked/undiag nosed. States she has felt many health care providers dismissed her symptoms has been a source of health anxiety and discouragement for her. Initiated on Lexapro 20 mg once daily which she has since discontinued due to development of tremor. Reports adequate support at home with . Denies SI/HI. Follows with psychiatric nurse practitioner Cassidy Quiroz as well as therapist regularly. #Rock's: Patient reports PMH of Rock's. Denies history of levothyroxine use. TSH WNL at 0.6. All questions answered to the patient's satisfaction. Patient demonstrates understanding of diagnosis and treatments discussed. Follow-up in , sooner should any questions/concern s arise. Case discussed with collaborating physician Velia Morrison who has reviewed the assessment/plan. Chart, medications, labs, and vital signs reviewed. Dictation completed with the use of [employer] voice recognition software, prone to medical misidentification s and grammatical errors. All errors are unintentional. Although the practitioner does try to identify and correct errors, some may be present. Please do not hesitate to contact the practitioner for clarification. Total time was 60 minutes spent with >50% on coordination of care and patient education. 11/18/2024 Pain in left arm (ICD-10 - M79.602) María is a 59-year-old female with a PMH of RA, slipped rib syndrome, Rock's that presents today for follow-up visit #Labs: Baseline laboratory evaluation including CBC, CMP, lipid panel, hemoglobin A1c, TSH, and vitamin D drawn 10/28/2024, reviewed today. #Tremor/arm pain/cervical spondylosis: Patient reports continued bilateral hand tremor with recent development of bilateral arm/shoulder pain L>R. Patient initially thought this was due to starting Lexapro, she has since discontinued without movement and symptoms. Saw Vanesa Garza PA-C with neurosurgery 11/07/24. Per note review comprehensive workup has been performed including MRIs of the cervical, thoracic, and lumbar spine which revealed multilevel degenerative changes throughout the spine. Imaging of the cervical spine also significant for multilevel neural foraminal narrowing. Labs including Lyme titers and CPK WNL. Given numerous vague complaints of arm/shoulder pain EKG obtained in office which reveals NSR. There is low voltage QTc consistent with prior studies. No acute ischemic changes. Exam today reveals mild bilateral tremor. No focal neurologic deficits observed. Strength of bilateral upper extremities is 5/5, sensation intact. Mild TTP of cervical spine - flexion/extension /rotation of the neck appears unaffected. Given recent worsening of pain over the last 3 days and recent fall at work (see below) plan to proceed with XR of cervical spine to assess for acute injury. Neurosurgery recommending conservative treatment with PT, patient states she is not amenable to this due to severity of current pain. Currently taking gabapentin 100 mg twice daily with minimal to moderate relief of symptom - plan to increase dose to 200 mg twice daily for continued pain management. Discussed utility of steroids given suspected neurologic source of the patients discomfort, she states she cannot take them because she develops pain on her skin with use of steroids. Neurosurgery also recommending EMG, scheduled for 11/20/2024. #Recent fall: Patient seen at [facility] ED 11/02/2024 s/p fall at work. Denied fall onto outstretched hands, head strike, or LOC at that time. While in the emergency department CT of the right lower extremity and x-ray of the right hip were obtained neutral without acute abnormalities. #Rheumatoid arthritis: RF positive at 152, ESR/CRP/CAMILO WNL. Has been treated previously with Humira, Enbrel, and Remicade without symptom improvement. Experiences diffuse joint pain and fatigue. Follows with senior instructional designer Dr. Clark out of [place], records requested and not yet available for my review. 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 States this was diagnosed by Dr. Dubon out of [place], [place]. Taking methocarbamol 750 mg 3 times daily and gabapentin 100 mg twice daily with moderate relief of discomfort. Patient awaiting surgical scheduling for correction. #Anxiety/depressi on: Patient reports she has had a challenging year as her slipped rib syndrome quite a long overlooked/undiag nosed. States she has felt many health care providers dismissed her symptoms has been a source of health anxiety and discouragement for her. Initiated on Lexapro 20 mg once daily which she has since discontinued due to development of tremor. Reports adequate support at home with . Denies SI/HI. Follows with psychiatric nurse practitioner Cassidy Quiroz as well as therapist regularly. #Rock's: Patient reports PMH of Rock's. Denies history of levothyroxine use. TSH WNL at 0.6. All questions answered to the patient's satisfaction. Patient demonstrates understanding of diagnosis and treatments discussed. Follow-up in , sooner should any questions/concern s arise. Case discussed with collaborating physician Velia Morrison who has reviewed the assessment/plan. Chart, medications, labs, and vital signs reviewed. Dictation completed with the use of [employer] voice recognition software, prone to medical misidentification s and grammatical errors. All errors are unintentional. Although the practitioner does try to identify and correct errors, some may be present. Please do not hesitate to contact the practitioner for clarification. Total time was 60 minutes spent with >50% on coordination of care and patient education. 10/28/2024 Depression with anxiety (ICD-10 - F41.8) María is a 59-year-old female with a PMH of RA, slipped rib syndrome, Rock's that presents today to establish care as new patient. #Labs: Baseline laboratory evaluation including CBC, CMP, lipid panel, hemoglobin A1c, TSH, and vitamin D ordered to be evaluated at time of CPE. #Tremor: Patient reports she feels she has recently developed a bilateral hand tremor. Denies any known factors that aggravate/improve the tremor. Also reports intermittent tingling on her left cheek which occasionally spreads over the bridge of her nose toward the right cheek. States the tingling is nonpainful. Denies difficulty speaking/word finding, localized weakness, difficulty walking, or fall/syncope. Mild resting tremor observed on exam. Exam otherwise WNL, no focal neurologic deficit observed. States she initially thought it was due to starting Lexapro. Contacted her psychiatrist who instructed her to discontinue the medication. Due to see neurology 11/05, due for EMG 11/20. Baseline labs ordered for continued evaluation. #Rheumatoid arthritis: Patient reports history of RA. Follows with senior instructional designer Dr. Clark out of [place]. Has been treated previously with Humira, Enbrel, and Remicade without symptom improvement. Experiences diffuse joint pain and fatigue. 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 States she was treated with rifampin x 4 months, course completed in September. ESR/CRP, RF, and CAMILO ordered. Records requested from rheumatology for continued evaluation. 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 States this was diagnosed by Dr. Dubon out of [place], [place]. Taking methocarbamol 750 mg 3 times daily and gabapentin 100 mg 3 times daily with moderate relief of discomfort. Patient awaiting surgical scheduling for correction. #Anxiety/depressi on: Patient reports she has had a challenging year as her slipped rib syndrome quite a long overlooked/undiag nosed. States she has felt many health care providers dismissed her symptoms has been a source of health anxiety and discouragement for her. Initiated on Lexapro 20 mg once daily which she has since discontinued due to development of tremor. Reports adequate support at home with . Denies SI/HI. Follows with psychiatric nurse practitioner Cassidy Quiroz as well as therapist - due to be seen today. #Rock's: Patient reports PMH of Rock's. Denies history of levothyroxine use. TSH with reflex T4 ordered. All questions answered to the patient's satisfaction. Patient demonstrates understanding of diagnosis and treatments discussed. Follow-up in 2 to 4 weeks, sooner should any questions/concern s arise. Case discussed with collaborating physician Velia Morrison who has reviewed the assessment/plan. Chart, medications, labs, and vital signs reviewed. Dictation completed with the use of [employer] voice recognition software, prone to medical misidentification s and grammatical errors. All errors are unintentional. Although the practitioner does try to identify and correct errors, some may be present. Please do not hesitate to contact the practitioner for clarification. Total time was 60 minutes spent with >50% on coordination of care and patient education. 12/02/2024 Pain in right arm (ICD-10 - M79.601) 12/02/2024 Pain in left arm (ICD-10 - M79.602) 11/18/2024 History of recent fall (ICD-10 - Z91.81) María is a 59-year-old female with a PMH of RA, slipped rib syndrome, Rock's that presents today for follow-up visit #Labs: Baseline laboratory evaluation including CBC, CMP, lipid panel, hemoglobin A1c, TSH, and vitamin D drawn 10/28/2024, reviewed today. #Tremor/arm pain/cervical spondylosis: Patient reports continued bilateral hand tremor with recent development of bilateral arm/shoulder pain L>R. Patient initially thought this was due to starting Lexapro, she has since discontinued without movement and symptoms. Saw Vanesa Garza PA-C with neurosurgery 11/07/24. Per note review comprehensive workup has been performed including MRIs of the cervical, thoracic, and lumbar spine which revealed multilevel degenerative changes throughout the spine. Imaging of the cervical spine also significant for multilevel neural foraminal narrowing. Labs including Lyme titers and CPK WNL. Given numerous vague complaints of arm/shoulder pain EKG obtained in office which reveals NSR. There is low voltage QTc consistent with prior studies. No acute ischemic changes. Exam today reveals mild bilateral tremor. No focal neurologic deficits observed. Strength of bilateral upper extremities is 5/5, sensation intact. Mild TTP of cervical spine - flexion/extension /rotation of the neck appears unaffected. Given recent worsening of pain over the last 3 days and recent fall at work (see below) plan to proceed with XR of cervical spine to assess for acute injury. Neurosurgery recommending conservative treatment with PT, patient states she is not amenable to this due to severity of current pain. Currently taking gabapentin 100 mg twice daily with minimal to moderate relief of symptom - plan to increase dose to 200 mg twice daily for continued pain management. Discussed utility of steroids given suspected neurologic source of the patients discomfort, she states she cannot take them because she develops pain on her skin with use of steroids. Neurosurgery also recommending EMG, scheduled for 11/20/2024. #Recent fall: Patient seen at [facility] ED 11/02/2024 s/p fall at work. Denied fall onto outstretched hands, head strike, or LOC at that time. While in the emergency department CT of the right lower extremity and x-ray of the right hip were obtained neutral without acute abnormalities. #Rheumatoid arthritis: RF positive at 152, ESR/CRP/CAMILO WNL. Has been treated previously with Humira, Enbrel, and Remicade without symptom improvement. Experiences diffuse joint pain and fatigue. Follows with senior instructional designer Dr. Clark out of [place], records requested and not yet available for my review. 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 States this was diagnosed by Dr. Dubon out of [place], [place]. Taking methocarbamol 750 mg 3 times daily and gabapentin 100 mg twice daily with moderate relief of discomfort. Patient awaiting surgical scheduling for correction. #Anxiety/depressi on: Patient reports she has had a challenging year as her slipped rib syndrome quite a long overlooked/undiag nosed. States she has felt many health care providers dismissed her symptoms has been a source of health anxiety and discouragement for her. Initiated on Lexapro 20 mg once daily which she has since discontinued due to development of tremor. Reports adequate support at home with . Denies SI/HI. Follows with psychiatric nurse practitioner Cassidy Quiroz as well as therapist regularly. #Rock's: Patient reports PMH of Rock's. Denies history of levothyroxine use. TSH WNL at 0.6. All questions answered to the patient's satisfaction. Patient demonstrates understanding of diagnosis and treatments discussed. Follow-up in , sooner should any questions/concern s arise. Case discussed with collaborating physician Velia Morrison who has reviewed the assessment/plan. Chart, medications, labs, and vital signs reviewed. Dictation completed with the use of [employer] voice recognition software, prone to medical misidentification s and grammatical errors. All errors are unintentional. Although the practitioner does try to identify and correct errors, some may be present. Please do not hesitate to contact the practitioner for clarification. Total time was 60 minutes spent with >50% on coordination of care and patient education. 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 #Labs: Baseline laboratory evaluation including CBC, CMP, lipid panel, hemoglobin A1c, TSH, and vitamin D ordered to be evaluated at time of CPE. #Tremor: Patient reports she feels she has recently developed a bilateral hand tremor. Denies any known factors that aggravate/improve the tremor. Also reports intermittent tingling on her left cheek which occasionally spreads over the bridge of her nose toward the right cheek. States the tingling is nonpainful. Denies difficulty speaking/word finding, localized weakness, difficulty walking, or fall/syncope. Mild resting tremor observed on exam. Exam otherwise WNL, no focal neurologic deficit observed. States she initially thought it was due to starting Lexapro. Contacted her psychiatrist who instructed her to discontinue the medication. Due to see neurology 11/05, due for EMG 11/20. Baseline labs ordered for continued evaluation. #Rheumatoid arthritis: Patient reports history of RA. Follows with senior instructional designer Dr. Clark out of [place]. Has been treated previously with Humira, Enbrel, and Remicade without symptom improvement. Experiences diffuse joint pain and fatigue. 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 States she was treated with rifampin x 4 months, course completed in September. ESR/CRP, RF, and CAMILO ordered. Records requested from rheumatology for continued evaluation. 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 States this was diagnosed by Dr. Dubon out of [place], [place]. Taking methocarbamol 750 mg 3 times daily and gabapentin 100 mg 3 times daily with moderate relief of discomfort. Patient awaiting surgical scheduling for correction. #Anxiety/depressi on: Patient reports she has had a challenging year as her slipped rib syndrome quite a long overlooked/undiag nosed. States she has felt many health care providers dismissed her symptoms has been a source of health anxiety and discouragement for her. Initiated on Lexapro 20 mg once daily which she has since discontinued due to development of tremor. Reports adequate support at home with . Denies SI/HI. Follows with psychiatric nurse practitioner Cassidy Quiroz as well as therapist - due to be seen today. #Rock's: Patient reports PMH of Rock's. Denies history of levothyroxine use. TSH with reflex T4 ordered. All questions answered to the patient's satisfaction. Patient demonstrates understanding of diagnosis and treatments discussed. Follow-up in 2 to 4 weeks, sooner should any questions/concern s arise. Case discussed with collaborating physician Velia Morrison who has reviewed the assessment/plan. Chart, medications, labs, and vital signs reviewed. Dictation completed with the use of [employer] voice recognition software, prone to medical misidentification s and grammatical errors. All errors are unintentional. Although the practitioner does try to identify and correct errors, some may be present. Please do not hesitate to contact the practitioner for clarification. Total time was 60 minutes spent with >50% on coordination of care and patient education. 12/04/2024 Pain in left arm (ICD-10 - M79.602) María is a 59-year-old female with a PMH of RA, slipped rib syndrome, Rock's that presents today for follow-up visit #Labs: Baseline laboratory evaluation including CBC, CMP, lipid panel, hemoglobin A1c, TSH, and vitamin D drawn 10/28/2024, reviewed today. #Tremor/arm pain/cervical spondylosis: Patient reports continued bilateral hand tremor with recent development of bilateral arm/shoulder pain L>R. Patient initially thought this was due to starting Lexapro, she has since discontinued without movement and symptoms. Saw Vanesa Garza PA-C with neurosurgery 11/07/24. Per note review comprehensive workup has been performed including MRIs of the cervical, thoracic, and lumbar spine which revealed multilevel degenerative changes throughout the spine. Imaging of the cervical spine also significant for multilevel neural foraminal narrowing. Labs including Lyme titers and CPK WNL. Given numerous vague complaints of arm/shoulder pain EKG obtained in office which reveals NSR. There is low voltage QTc consistent with prior studies. No acute ischemic changes. Exam today reveals mild bilateral tremor. No focal neurologic deficits observed. Strength of bilateral upper extremities is 5/5, sensation intact. Mild TTP of cervical spine - flexion/extension /rotation of the neck appears unaffected. Given recent worsening of pain over the last 3 days and recent fall at work (see below) plan to proceed with XR of cervical spine to assess for acute injury. Neurosurgery recommending conservative treatment with PT, patient states she is not amenable to this due to severity of current pain. Currently taking gabapentin 100 mg twice daily with minimal to moderate relief of symptom - plan to increase dose to 200 mg twice daily for continued pain management. Discussed utility of steroids given suspected neurologic source of the patients discomfort, she states she cannot take them because she develops pain on her skin with use of steroids. Neurosurgery also recommending EMG, scheduled for 11/20/2024. #Recent fall: Patient seen at [facility] ED 11/02/2024 s/p fall at work. Denied fall onto outstretched hands, head strike, or LOC at that time. While in the emergency department CT of the right lower extremity and x-ray of the right hip were obtained neutral without acute abnormalities. #Rheumatoid arthritis: RF positive at 152, ESR/CRP/CAMILO WNL. Has been treated previously with Humira, Enbrel, and Remicade without symptom improvement. Experiences diffuse joint pain and fatigue. Follows with senior instructional designer Dr. Clark out of [place], records requested and not yet available for my review. 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 States this was diagnosed by Dr. Dubon out of [place], [place]. Taking methocarbamol 750 mg 3 times daily and gabapentin 100 mg twice daily with moderate relief of discomfort. Patient awaiting surgical scheduling for correction. #Anxiety/depressi on: Patient reports she has had a challenging year as her slipped rib syndrome quite a long overlooked/undiag nosed. States she has felt many health care providers dismissed her symptoms has been a source of health anxiety and discouragement for her. Initiated on Lexapro 20 mg once daily which she has since discontinued due to development of tremor. Reports adequate support at home with . Denies SI/HI. Follows with psychiatric nurse practitioner Cassidy Quiroz as well as therapist regularly. #Rock's: Patient reports PMH of Rock's. Denies history of levothyroxine use. TSH WNL at 0.6. All questions answered to the patient's satisfaction. Patient demonstrates understanding of diagnosis and treatments discussed. Follow-up in , sooner should any questions/concern s arise. Case discussed with collaborating physician Velia Morrison who has reviewed the assessment/plan. Chart, medications, labs, and vital signs reviewed. Dictation completed with the use of [employer] voice recognition software, prone to medical misidentification s and grammatical errors. All errors are unintentional. Although the practitioner does try to identify and correct errors, some may be present. Please do not hesitate to contact the practitioner for clarification. Total time was 60 minutes spent with >50% on coordination of care and patient education. 12/02/2024 History of recent fall (ICD-10 - Z91.81) 12/04/2024 History of recent fall (ICD-10 - Z91.81) María is a 59-year-old female with a PMH of RA, slipped rib syndrome, Rock's that presents today for follow-up visit #Labs: Baseline laboratory evaluation including CBC, CMP, lipid panel, hemoglobin A1c, TSH, and vitamin D drawn 10/28/2024, reviewed today. #Tremor/arm pain/cervical spondylosis: Patient reports continued bilateral hand tremor with recent development of bilateral arm/shoulder pain L>R. Patient initially thought this was due to starting Lexapro, she has since discontinued without movement and symptoms. Saw Vanesa Garza PA-C with neurosurgery 11/07/24. Per note review comprehensive workup has been performed including MRIs of the cervical, thoracic, and lumbar spine which revealed multilevel degenerative changes throughout the spine. Imaging of the cervical spine also significant for multilevel neural foraminal narrowing. Labs including Lyme titers and CPK WNL. Given numerous vague complaints of arm/shoulder pain EKG obtained in office which reveals NSR. There is low voltage QTc consistent with prior studies. No acute ischemic changes. Exam today reveals mild bilateral tremor. No focal neurologic deficits observed. Strength of bilateral upper extremities is 5/5, sensation intact. Mild TTP of cervical spine - flexion/extension /rotation of the neck appears unaffected. Given recent worsening of pain over the last 3 days and recent fall at work (see below) plan to proceed with XR of cervical spine to assess for acute injury. Neurosurgery recommending conservative treatment with PT, patient states she is not amenable to this due to severity of current pain. Currently taking gabapentin 100 mg twice daily with minimal to moderate relief of symptom - plan to increase dose to 200 mg twice daily for continued pain management. Discussed utility of steroids given suspected neurologic source of the patients discomfort, she states she cannot take them because she develops pain on her skin with use of steroids. Neurosurgery also recommending EMG, scheduled for 11/20/2024. #Recent fall: Patient seen at [facility] ED 11/02/2024 s/p fall at work. Denied fall onto outstretched hands, head strike, or LOC at that time. While in the emergency department CT of the right lower extremity and x-ray of the right hip were obtained neutral without acute abnormalities. #Rheumatoid arthritis: RF positive at 152, ESR/CRP/CAMILO WNL. Has been treated previously with Humira, Enbrel, and Remicade without symptom improvement. Experiences diffuse joint pain and fatigue. Follows with senior instructional designer Dr. Clark out of [place], records requested and not yet available for my review. 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 States this was diagnosed by Dr. Dubon out of [place], [place]. Taking methocarbamol 750 mg 3 times daily and gabapentin 100 mg twice daily with moderate relief of discomfort. Patient awaiting surgical scheduling for correction. #Anxiety/depressi on: Patient reports she has had a challenging year as her slipped rib syndrome quite a long overlooked/undiag nosed. States she has felt many health care providers dismissed her symptoms has been a source of health anxiety and discouragement for her. Initiated on Lexapro 20 mg once daily which she has since discontinued due to development of tremor. Reports adequate support at home with . Denies SI/HI. Follows with psychiatric nurse practitioner Cassidy Quiroz as well as therapist regularly. #Rock's: Patient reports PMH of Rock's. Denies history of levothyroxine use. TSH WNL at 0.6. All questions answered to the patient's satisfaction. Patient demonstrates understanding of diagnosis and treatments discussed. Follow-up in , sooner should any questions/concern s arise. Case discussed with collaborating physician Velia Morrison who has reviewed the assessment/plan. Chart, medications, labs, and vital signs reviewed. Dictation completed with the use of [employer] voice recognition software, prone to medical misidentification s and grammatical errors. All errors are unintentional. Although the practitioner does try to identify and correct errors, some may be present. Please do not hesitate to contact the practitioner for clarification. Total time was 60 minutes spent with >50% on coordination of care and patient education. 11/18/2024 Rheumatoid arthritis involving multiple sites with positive rheumatoid factor (ICD-10 - M05.79) María is a 59-year-old female with a PMH of RA, slipped rib syndrome, Rock's that presents today for follow-up visit #Labs: Baseline laboratory evaluation including CBC, CMP, lipid panel, hemoglobin A1c, TSH, and vitamin D drawn 10/28/2024, reviewed today. #Tremor/arm pain/cervical spondylosis: Patient reports continued bilateral hand tremor with recent development of bilateral arm/shoulder pain L>R. Patient initially thought this was due to starting Lexapro, she has since discontinued without movement and symptoms. Saw Vanesa Garza PA-C with neurosurgery 11/07/24. Per note review comprehensive workup has been performed including MRIs of the cervical, thoracic, and lumbar spine which revealed multilevel degenerative changes throughout the spine. Imaging of the cervical spine also significant for multilevel neural foraminal narrowing. Labs including Lyme titers and CPK WNL. Given numerous vague complaints of arm/shoulder pain EKG obtained in office which reveals NSR. There is low voltage QTc consistent with prior studies. No acute ischemic changes. Exam today reveals mild bilateral tremor. No focal neurologic deficits observed. Strength of bilateral upper extremities is 5/5, sensation intact. Mild TTP of cervical spine - flexion/extension /rotation of the neck appears unaffected. Given recent worsening of pain over the last 3 days and recent fall at work (see below) plan to proceed with XR of cervical spine to assess for acute injury. Neurosurgery recommending conservative treatment with PT, patient states she is not amenable to this due to severity of current pain. Currently taking gabapentin 100 mg twice daily with minimal to moderate relief of symptom - plan to increase dose to 200 mg twice daily for continued pain management. Discussed utility of steroids given suspected neurologic source of the patients discomfort, she states she cannot take them because she develops pain on her skin with use of steroids. Neurosurgery also recommending EMG, scheduled for 11/20/2024. #Recent fall: Patient seen at [facility] ED 11/02/2024 s/p fall at work. Denied fall onto outstretched hands, head strike, or LOC at that time. While in the emergency department CT of the right lower extremity and x-ray of the right hip were obtained neutral without acute abnormalities. #Rheumatoid arthritis: RF positive at 152, ESR/CRP/CAMILO WNL. Has been treated previously with Humira, Enbrel, and Remicade without symptom improvement. Experiences diffuse joint pain and fatigue. Follows with senior instructional designer Dr. Clark out of [place], records requested and not yet available for my review. 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 States this was diagnosed by Dr. Dubon out of [place], [place]. Taking methocarbamol 750 mg 3 times daily and gabapentin 100 mg twice daily with moderate relief of discomfort. Patient awaiting surgical scheduling for correction. #Anxiety/depressi on: Patient reports she has had a challenging year as her slipped rib syndrome quite a long overlooked/undiag nosed. States she has felt many health care providers dismissed her symptoms has been a source of health anxiety and discouragement for her. Initiated on Lexapro 20 mg once daily which she has since discontinued due to development of tremor. Reports adequate support at home with . Denies SI/HI. Follows with psychiatric nurse practitioner Cassidy Quiroz as well as therapist regularly. #Rock's: Patient reports PMH of Rock's. Denies history of levothyroxine use. TSH WNL at 0.6. All questions answered to the patient's satisfaction. Patient demonstrates understanding of diagnosis and treatments discussed. Follow-up in , sooner should any questions/concern s arise. Case discussed with collaborating physician Velia Morrison who has reviewed the assessment/plan. Chart, medications, labs, and vital signs reviewed. Dictation completed with the use of [employer] voice recognition software, prone to medical misidentification s and grammatical errors. All errors are unintentional. Although the practitioner does try to identify and correct errors, some may be present. Please do not hesitate to contact the practitioner for clarification. Total time was 60 minutes spent with >50% on coordination of care and patient education. 11/18/2024 Slipped rib syndrome (ICD-10 - M94.0) María is a 59-year-old female with a PMH of RA, slipped rib syndrome, Rock's that presents today for follow-up visit #Labs: Baseline laboratory evaluation including CBC, CMP, lipid panel, hemoglobin A1c, TSH, and vitamin D drawn 10/28/2024, reviewed today. #Tremor/arm pain/cervical spondylosis: Patient reports continued bilateral hand tremor with recent development of bilateral arm/shoulder pain L>R. Patient initially thought this was due to starting Lexapro, she has since discontinued without movement and symptoms. Saw Vanesa Garza PA-C with neurosurgery 11/07/24. Per note review comprehensive workup has been performed including MRIs of the cervical, thoracic, and lumbar spine which revealed multilevel degenerative changes throughout the spine. Imaging of the cervical spine also significant for multilevel neural foraminal narrowing. Labs including Lyme titers and CPK WNL. Given numerous vague complaints of arm/shoulder pain EKG obtained in office which reveals NSR. There is low voltage QTc consistent with prior studies. No acute ischemic changes. Exam today reveals mild bilateral tremor. No focal neurologic deficits observed. Strength of bilateral upper extremities is 5/5, sensation intact. Mild TTP of cervical spine - flexion/extension /rotation of the neck appears unaffected. Given recent worsening of pain over the last 3 days and recent fall at work (see below) plan to proceed with XR of cervical spine to assess for acute injury. Neurosurgery recommending conservative treatment with PT, patient states she is not amenable to this due to severity of current pain. Currently taking gabapentin 100 mg twice daily with minimal to moderate relief of symptom - plan to increase dose to 200 mg twice daily for continued pain management. Discussed utility of steroids given suspected neurologic source of the patients discomfort, she states she cannot take them because she develops pain on her skin with use of steroids. Neurosurgery also recommending EMG, scheduled for 11/20/2024. #Recent fall: Patient seen at [facility] ED 11/02/2024 s/p fall at work. Denied fall onto outstretched hands, head strike, or LOC at that time. While in the emergency department CT of the right lower extremity and x-ray of the right hip were obtained neutral without acute abnormalities. #Rheumatoid arthritis: RF positive at 152, ESR/CRP/CAMILO WNL. Has been treated previously with Humira, Enbrel, and Remicade without symptom improvement. Experiences diffuse joint pain and fatigue. Follows with senior instructional designer Dr. Clark out of [place], records requested and not yet available for my review. 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 States this was diagnosed by Dr. Dubon out of [place], [place]. Taking methocarbamol 750 mg 3 times daily and gabapentin 100 mg twice daily with moderate relief of discomfort. Patient awaiting surgical scheduling for correction. #Anxiety/depressi on: Patient reports she has had a challenging year as her slipped rib syndrome quite a long overlooked/undiag nosed. States she has felt many health care providers dismissed her symptoms has been a source of health anxiety and discouragement for her. Initiated on Lexapro 20 mg once daily which she has since discontinued due to development of tremor. Reports adequate support at home with . Denies SI/HI. Follows with psychiatric nurse practitioner Cassidy Quiroz as well as therapist regularly. #Rock's: Patient reports PMH of Rock's. Denies history of levothyroxine use. TSH WNL at 0.6. All questions answered to the patient's satisfaction. Patient demonstrates understanding of diagnosis and treatments discussed. Follow-up in , sooner should any questions/concern s arise. Case discussed with collaborating physician Velia Morrison who has reviewed the assessment/plan. Chart, medications, labs, and vital signs reviewed. Dictation completed with the use of [employer] voice recognition software, prone to medical misidentification s and grammatical errors. All errors are unintentional. Although the practitioner does try to identify and correct errors, some may be present. Please do not hesitate to contact the practitioner for clarification. Total time was 60 minutes spent with >50% on coordination of care and patient education. 12/04/2024 Rheumatoid arthritis involving multiple sites with positive rheumatoid factor (ICD-10 - M05.79) Maraí is a 59-year-old female with a PMH of RA, slipped rib syndrome, Rock's that presents today for follow-up visit #Labs: Baseline laboratory evaluation including CBC, CMP, lipid panel, hemoglobin A1c, TSH, and vitamin D drawn 10/28/2024, reviewed today. #Tremor/arm pain/cervical spondylosis: Patient reports continued bilateral hand tremor with recent development of bilateral arm/shoulder pain L>R. Patient initially thought this was due to starting Lexapro, she has since discontinued without movement and symptoms. Saw Vanesa Garza PA-C with neurosurgery 11/07/24. Per note review comprehensive workup has been performed including MRIs of the cervical, thoracic, and lumbar spine which revealed multilevel degenerative changes throughout the spine. Imaging of the cervical spine also significant for multilevel neural foraminal narrowing. Labs including Lyme titers and CPK WNL. Given numerous vague complaints of arm/shoulder pain EKG obtained in office which reveals NSR. There is low voltage QTc consistent with prior studies. No acute ischemic changes. Exam today reveals mild bilateral tremor. No focal neurologic deficits observed. Strength of bilateral upper extremities is 5/5, sensation intact. Mild TTP of cervical spine - flexion/extension /rotation of the neck appears unaffected. Given recent worsening of pain over the last 3 days and recent fall at work (see below) plan to proceed with XR of cervical spine to assess for acute injury. Neurosurgery recommending conservative treatment with PT, patient states she is not amenable to this due to severity of current pain. Currently taking gabapentin 100 mg twice daily with minimal to moderate relief of symptom - plan to increase dose to 200 mg twice daily for continued pain management. Discussed utility of steroids given suspected neurologic source of the patients discomfort, she states she cannot take them because she develops pain on her skin with use of steroids. Neurosurgery also recommending EMG, scheduled for 11/20/2024. #Recent fall: Patient seen at [facility] ED 11/02/2024 s/p fall at work. Denied fall onto outstretched hands, head strike, or LOC at that time. While in the emergency department CT of the right lower extremity and x-ray of the right hip were obtained neutral without acute abnormalities. #Rheumatoid arthritis: RF positive at 152, ESR/CRP/CAMILO WNL. Has been treated previously with Humira, Enbrel, and Remicade without symptom improvement. Experiences diffuse joint pain and fatigue. Follows with senior instructional designer Dr. Clark out of [place], records requested and not yet available for my review. 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 States this was diagnosed by Dr. Dubon out of [place], [place]. Taking methocarbamol 750 mg 3 times daily and gabapentin 100 mg twice daily with moderate relief of discomfort. Patient awaiting surgical scheduling for correction. #Anxiety/depressi on: Patient reports she has had a challenging year as her slipped rib syndrome quite a long overlooked/undiag nosed. States she has felt many health care providers dismissed her symptoms has been a source of health anxiety and discouragement for her. Initiated on Lexapro 20 mg once daily which she has since discontinued due to development of tremor. Reports adequate support at home with . Denies SI/HI. Follows with psychiatric nurse practitioner Cassidy Quiroz as well as therapist regularly. #Rock's: Patient reports PMH of Rock's. Denies history of levothyroxine use. TSH WNL at 0.6. All questions answered to the patient's satisfaction. Patient demonstrates understanding of diagnosis and treatments discussed. Follow-up in , sooner should any questions/concern s arise. Case discussed with collaborating physician Velia Morrison who has reviewed the assessment/plan. Chart, medications, labs, and vital signs reviewed. Dictation completed with the use of [employer] voice recognition software, prone to medical misidentification s and grammatical errors. All errors are unintentional. Although the practitioner does try to identify and correct errors, some may be present. Please do not hesitate to contact the practitioner for clarification. Total time was 60 minutes spent with >50% on coordination of care and patient education. 12/02/2024 Rheumatoid arthritis involving multiple sites with positive rheumatoid factor (ICD-10 - M05.79) 12/02/2024 Slipped rib syndrome (ICD-10 - M94.0) 12/04/2024 Slipped rib syndrome (ICD-10 - M94.0) María is a 59-year-old female with a PMH of RA, slipped rib syndrome, Rock's that presents today for follow-up visit #Labs: Baseline laboratory evaluation including CBC, CMP, lipid panel, hemoglobin A1c, TSH, and vitamin D drawn 10/28/2024, reviewed today. #Tremor/arm pain/cervical spondylosis: Patient reports continued bilateral hand tremor with recent development of bilateral arm/shoulder pain L>R. Patient initially thought this was due to starting Lexapro, she has since discontinued without movement and symptoms. Saw Vanesa Garza PA-C with neurosurgery 1/2/25. Per note review comprehensive workup has been performed including MRIs of the cervical, thoracic, and lumbar spine which revealed multilevel degenerative changes throughout the spine. Imaging of the cervical spine also significant for multilevel neural foraminal narrowing. Labs including Lyme titers and CPK WNL. Given numerous vague complaints of arm/shoulder pain EKG obtained in office which reveals NSR. There is low voltage QTc consistent with prior studies. No acute ischemic changes. Exam today reveals mild bilateral tremor. No focal neurologic deficits observed. Strength of bilateral upper extremities is 5/5, sensation intact. Mild TTP of cervical spine - flexion/extension /rotation of the neck appears unaffected. Given recent worsening of pain over the last 3 days and recent fall at work (see below) plan to proceed with XR of cervical spine to assess for acute injury. Neurosurgery recommending conservative treatment with PT, patient states she is not amenable to this due to severity of current pain. Currently taking gabapentin 100 mg twice daily with minimal to moderate relief of symptom - plan to increase dose to 200 mg twice daily for continued pain management. Discussed utility of steroids given suspected neurologic source of the patients discomfort, she states she cannot take them because she develops pain on her skin with use of steroids. Neurosurgery also recommending EMG, scheduled for 11/20/2024. #Recent fall: Patient seen at [facility] ED 11/02/2024 s/p fall at work. Denied fall onto outstretched hands, head strike, or LOC at that time. While in the emergency department CT of the right lower extremity and x-ray of the right hip were obtained neutral without acute abnormalities. #Rheumatoid arthritis: RF positive at 152, ESR/CRP/CAMILO WNL. Has been treated previously with Humira, Enbrel, and Remicade without symptom improvement. Experiences diffuse joint pain and fatigue. Follows with senior instructional designer Dr. Clark out of [place], records requested and not yet available for my review. 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 States this was diagnosed by Dr. Dubon out of [place], [place]. Taking methocarbamol 750 mg 3 times daily and gabapentin 100 mg twice daily with moderate relief of discomfort. Patient awaiting surgical scheduling for correction. #Anxiety/depressi on: Patient reports she has had a challenging year as her slipped rib syndrome quite a long overlooked/undiag nosed. States she has felt many health care providers dismissed her symptoms has been a source of health anxiety and discouragement for her. Initiated on Lexapro 20 mg once daily which she has since discontinued due to development of tremor. Reports adequate support at home with . Denies SI/HI. Follows with psychiatric nurse practitioner Cassidy Quiroz as well as therapist regularly. #Rock's: Patient reports PMH of Rock's. Denies history of levothyroxine use. TSH WNL at 0.6. All questions answered to the patient's satisfaction. Patient demonstrates understanding of diagnosis and treatments discussed. Follow-up in , sooner should any questions/concern s arise. Case discussed with collaborating physician Velia Morrison who has reviewed the assessment/plan. Chart, medications, labs, and vital signs reviewed. Dictation completed with the use of [employer] voice recognition software, prone to medical misidentification s and grammatical errors. All errors are unintentional. Although the practitioner does try to identify and correct errors, some may be present. Please do not hesitate to contact the practitioner for clarification. Total time was 60 minutes spent with >50% on coordination of care and patient education. 11/18/2024 Depression with anxiety (ICD-10 - F41.8) María is a 59-year-old female with a PMH of RA, slipped rib syndrome, Rock's that presents today for follow-up visit #Labs: Baseline laboratory evaluation including CBC, CMP, lipid panel, hemoglobin A1c, TSH, and vitamin D drawn 10/28/2024, reviewed today. #Tremor/arm pain/cervical spondylosis: Patient reports continued bilateral hand tremor with recent development of bilateral arm/shoulder pain L>R. Patient initially thought this was due to starting Lexapro, she has since discontinued without movement and symptoms. Saw Vanesa Garza PA-C with neurosurgery 11/07/24. Per note review comprehensive workup has been performed including MRIs of the cervical, thoracic, and lumbar spine which revealed multilevel degenerative changes throughout the spine. Imaging of the cervical spine also significant for multilevel neural foraminal narrowing. Labs including Lyme titers and CPK WNL. Given numerous vague complaints of arm/shoulder pain EKG obtained in office which reveals NSR. There is low voltage QTc consistent with prior studies. No acute ischemic changes. Exam today reveals mild bilateral tremor. No focal neurologic deficits observed. Strength of bilateral upper extremities is 5/5, sensation intact. Mild TTP of cervical spine - flexion/extension /rotation of the neck appears unaffected. Given recent worsening of pain over the last 3 days and recent fall at work (see below) plan to proceed with XR of cervical spine to assess for acute injury. Neurosurgery recommending conservative treatment with PT, patient states she is not amenable to this due to severity of current pain. Currently taking gabapentin 100 mg twice daily with minimal to moderate relief of symptom - plan to increase dose to 200 mg twice daily for continued pain management. Discussed utility of steroids given suspected neurologic source of the patients discomfort, she states she cannot take them because she develops pain on her skin with use of steroids. Neurosurgery also recommending EMG, scheduled for 11/20/2024. #Recent fall: Patient seen at [facility] ED 11/02/2024 s/p fall at work. Denied fall onto outstretched hands, head strike, or LOC at that time. While in the emergency department CT of the right lower extremity and x-ray of the right hip were obtained neutral without acute abnormalities. #Rheumatoid arthritis: RF positive at 152, ESR/CRP/CAMILO WNL. Has been treated previously with Humira, Enbrel, and Remicade without symptom improvement. Experiences diffuse joint pain and fatigue. Follows with senior instructional designer Dr. Clark out of [place], records requested and not yet available for my review. 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 States this was diagnosed by Dr. Dubon out of [place], [place]. Taking methocarbamol 750 mg 3 times daily and gabapentin 100 mg twice daily with moderate relief of discomfort. Patient awaiting surgical scheduling for correction. #Anxiety/depressi on: Patient reports she has had a challenging year as her slipped rib syndrome quite a long overlooked/undiag nosed. States she has felt many health care providers dismissed her symptoms has been a source of health anxiety and discouragement for her. Initiated on Lexapro 20 mg once daily which she has since discontinued due to development of tremor. Reports adequate support at home with . Denies SI/HI. Follows with psychiatric nurse practitioner Cassidy Quiroz as well as therapist regularly. #Rock's: Patient reports PMH of Rock's. Denies history of levothyroxine use. TSH WNL at 0.6. All questions answered to the patient's satisfaction. Patient demonstrates understanding of diagnosis and treatments discussed. Follow-up in , sooner should any questions/concern s arise. Case discussed with collaborating physician Velia Morrison who has reviewed the assessment/plan. Chart, medications, labs, and vital signs reviewed. Dictation completed with the use of [employer] voice recognition software, prone to medical misidentification s and grammatical errors. All errors are unintentional. Although the practitioner does try to identify and correct errors, some may be present. Please do not hesitate to contact the practitioner for clarification. Total time was 60 minutes spent with >50% on coordination of care and patient education. 12/02/2024 Depression with anxiety (ICD-10 - F41.8) 12/04/2024 Depression with anxiety (ICD-10 - F41.8) María is a 59-year-old female with a PMH of RA, slipped rib syndrome, Rock's that presents today for follow-up visit #Labs: Baseline laboratory evaluation including CBC, CMP, lipid panel, hemoglobin A1c, TSH, and vitamin D drawn 10/28/2024, reviewed today. #Tremor/arm pain/cervical spondylosis: Patient reports continued bilateral hand tremor with recent development of bilateral arm/shoulder pain L>R. Patient initially thought this was due to starting Lexapro, she has since discontinued without movement and symptoms. Saw Vanesa Garza PA-C with neurosurgery 11/07/24. Per note review comprehensive workup has been performed including MRIs of the cervical, thoracic, and lumbar spine which revealed multilevel degenerative changes throughout the spine. Imaging of the cervical spine also significant for multilevel neural foraminal narrowing. Labs including Lyme titers and CPK WNL. Given numerous vague complaints of arm/shoulder pain EKG obtained in office which reveals NSR. There is low voltage QTc consistent with prior studies. No acute ischemic changes. Exam today reveals mild bilateral tremor. No focal neurologic deficits observed. Strength of bilateral upper extremities is 5/5, sensation intact. Mild TTP of cervical spine - flexion/extension /rotation of the neck appears unaffected. Given recent worsening of pain over the last 3 days and recent fall at work (see below) plan to proceed with XR of cervical spine to assess for acute injury. Neurosurgery recommending conservative treatment with PT, patient states she is not amenable to this due to severity of current pain. Currently taking gabapentin 100 mg twice daily with minimal to moderate relief of symptom - plan to increase dose to 200 mg twice daily for continued pain management. Discussed utility of steroids given suspected neurologic source of the patients discomfort, she states she cannot take them because she develops pain on her skin with use of steroids. Neurosurgery also recommending EMG, scheduled for 11/20/2024. #Recent fall: Patient seen at [facility] ED 11/02/2024 s/p fall at work. Denied fall onto outstretched hands, head strike, or LOC at that time. While in the emergency department CT of the right lower extremity and x-ray of the right hip were obtained neutral without acute abnormalities. #Rheumatoid arthritis: RF positive at 152, ESR/CRP/CAMILO WNL. Has been treated previously with Humira, Enbrel, and Remicade without symptom improvement. Experiences diffuse joint pain and fatigue. Follows with senior instructional designer Dr. Clark out of [place], records requested and not yet available for my review. 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 States this was diagnosed by Dr. Dubon out of [place], [place]. Taking methocarbamol 750 mg 3 times daily and gabapentin 100 mg twice daily with moderate relief of discomfort. Patient awaiting surgical scheduling for correction. #Anxiety/depressi on: Patient reports she has had a challenging year as her slipped rib syndrome quite a long overlooked/undiag nosed. States she has felt many health care providers dismissed her symptoms has been a source of health anxiety and discouragement for her. Initiated on Lexapro 20 mg once daily which she has since discontinued due to development of tremor. Reports adequate support at home with . Denies SI/HI. Follows with psychiatric nurse practitioner Cassidy Quiroz as well as therapist regularly. #Rock's: Patient reports PMH of Rock's. Denies history of levothyroxine use. TSH WNL at 0.6. All questions answered to the patient's satisfaction. Patient demonstrates understanding of diagnosis and treatments discussed. Follow-up in , sooner should any questions/concern s arise. Case discussed with collaborating physician Velia Morrison who has reviewed the assessment/plan. Chart, medications, labs, and vital signs reviewed. Dictation completed with the use of [employer] voice recognition software, prone to medical misidentification s and grammatical errors. All errors are unintentional. Although the practitioner does try to identify and correct errors, some may be present. Please do not hesitate to contact the practitioner for clarification. Total time was 60 minutes spent with >50% on coordination of care and patient education. PLAN OF TREATMENT Pending Test Test Name Order Date Hemoglobin A1c 10/28/2024 Anti-dsDNA Antibodies 12/13/2024 Anti-Lakisha-1 12/13/2024 CAMILO w/Reflex 10/28/2024 ESR 10/28/2024 ESR 12/13/2024 EKG 11/18/2024 CBC (COMPLETE BLOOD COUNT) WITH DIFF 05/2025 COMPLEMENT C3 12/13/2024 COMPLEMENT C4 12/13/2024 COMPREHENSIVE METABOLIC PANEL 12/13/2024 CRP, HIGH SENSITIVITY 10/28/2024 FERRITIN 10/28/2024 IRON & TIBC 10/28/2024 LIPID PANEL 10/28/2024 TSH 10/28/2024 Anti Bermeo Antibody 12/13/2024 CBC with Differential 10/28/2024 RHEUMATOID FACTOR 10/28/2024 HS CRP 12/13/2024 VITAMIN D,25-OH,TOTAL,IA 10/28/2024 CR Spine Cervical Min 4 Views 11/18/2024 Comp. Metabolic Panel [id number] Anti-Mi-2 Ab (RDL)-[id number] 12/13/2024 Anti-Ro (SS-A) Ab (RDL)-[id number] Anti-La (SS-B) Ab (RDL)-[id number] CREATINE KINASE AND CKMB 12/13/2024 Insurance Providers Payer Name Payer Address Payer Phone Subscriber Number Group Number Insured Name Patient Relationship to Insured Coverage Start Date Coverage End Date [facility] [address] [facility] MIMA JEREZ [phone] [id number] [phone] María Olson Self - patient is the insured 2020 MEDICAL (GENERAL) HISTORY Surgical History Surgery Date(Month/Year) ventral hernia repair 2017 cholecystectomy 1999 left ACL repair 1997 Right carpal tunnel release 2019 bilateral strabismus correction 1973
--- OUTSIDE RECORDS SUMMARY | 2024-12-24 09:01 | XMS_ITS | Encounter Summary ---
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 * Tova Lofton - 10/25/2024 1:52 PM EST Patient is calling back, asking for below lab request to be ordered today. Advised that Dr. Garcia isnot in office, asking if another provider can order labs. She states she does not want to go through the weekend without having the labs drawn. Requesting a call to [phone] * Rebeka Burciaga - 10/25/2024 12:17 PM EST Patients last appt was a telehealth with Dr Garcia on 08/20/24 for thyroid. Patient states she is having the shakes, hand and arms. Her throat aches. She is asking if Dr Garcia can order lab work. Pleasecall if this will be called in. [phone] documented in this encounter Plan of Treatment Upcoming Encounters Date Type Department Care Team (Late st Contact Info) Description 12/26/2024 8:15 AM EST Appointment [facility] Xray [address] [place] [phone] 12/27/2024 3:15 PM EST Office Visit Neurosurgery [facility] [address] [place] [phone] Peggy Leon MD [address] [place] [address] documented as of this encounter Visit Diagnoses Not on filedocumented in this encounter Care Teams [employer] Process Worker Relationship Specialty Start Date End Date Araceli Augustin PA [address] [facility] [address] [place] [id number] PCP - General 11/20/24 documented as of this encounter
--- OUTSIDE RECORDS SUMMARY | 2024-12-24 09:01 | XMS_ITS | Clinical Summary ---
Author Organization [facility] Address [address] [place] [address] Care Team Providers Care [facility] Name Role Phone Vee Allan MD Primary Care Prov ider Allergies Active Allergy Reactions Criticality Noted Date Comments Clindamycin Medium 06/01/2015 Other reaction(s): Hives/Urticaria Duloxetine Hcl Rash Low 11/07/2019 Other reaction(s): Rash/Dermatitis Erythromycin Medium 06/01/2015 Other reaction(s): Hives/Urticaria Medications No known medications Active Problems Problem Noted Date Diagnosed Date Cervical radiculopathy 04/17/2020 Ulnar neuropathy of right upper extremity 2019 Bilateral wrist pain 04/17/2020 Left carpal tunnel syndrome 01/01/2020 Right carpal tunnel syndrome 01/01/2020 Family History Medical History Relation Name Comments Hypertension Father Arthritis Mother Relation Name Status Comments Father Mother Social History Tobacco Use Types Packs/Day Years Used Date Smoking Tobacco: Every Day Cigarettes 0.5 1 Smokeless Tobacco: Never Tobacco Cessation:Ready to Q uit: Not Asked; Counseling Given: Not Answered Alcohol Use Standard Drinks/Week Comments Yes 0 (1 standard drink = 0.6 oz pur e alcohol) occasional Sex and Gender Information Value Date Recorded Sex Assigned at Female 01/13/2020 3:26 PM EDT Gender Identity Female 01/15/2020 11:40 AM EDT Sexual Orientation Choose not to disclose 2019 7:24 AM EDT Job Start Date Occupation Industry Not on file Not on file Not on file Last Filed Vital Signs Vital Sign Reading Time Taken Comments Blood Pressure 126/80 07/09/2024 10:00 AM EDT Pulse 84 07/09/2024 10:00 AM EDT Temperature 36.9 ??C (98.4 ??F) 07/09/2024 10:00 AM E DT Respiratory Rate 18 01/20/2020 10:49 AM EDT Oxygen Saturation 98% 07/09/2024 10:00 AM EDT Inhaled Oxygen Concentration - - Weight 72.6 kg (160 lb) 11/29/2023 12:34 PM EST Height 162.6 cm (5' 4 ) 11/29/2023 12:34 PM EST Body Mass Index 27.46 11/29/2023 12:34 PM EST Plan of Treatment Health Maintenance Due Date Last Done Comments Pneumococcal Vaccine (1 of 2 - PCV) 1973 Depression Screening 1979 BMI Counseling 1985 Preventative Health Evaluation 1985 Tobacco Cessation Counseling 1985 Cervical Cancer Screening (Pap Smear) 1988 Colon Cancer Screening (Colonoscopy) 2012 Breast Cancer Screening (Mammogram) 2017 Shingrix-Zoster Vaccine (1 of 2) 2017 Hepatitis B Vaccines (3 of 3 - 19+ 3-dose series) 07/20/2022 02/21/2022, 01/17/2022 COVID-19 Vaccine ( - season) 2024 02/02/2022, 07/05/2021, 06/24/2021, Additional history exists Influenza Vaccine (#1) 2024 , 09/19/2022, 08/02/2021, Additional history exists DTap / Tdap / Td (3 - Td or Tdap) 01/09/2029 01/09/2019, 06/01/2015 Hepatitis C Screening Completed 05/20/2024 RSV Ped < 20 months Aged Out No longe r eligible based on patient's age to complete this topic Care Teams Campus Dean Relationship Specialty Start Date End Date Vee Allan MD PCP - General Internal Medicine 12/05/19
--- OUTSIDE RECORDS SUMMARY | 2024-12-24 09:01 | XMS_ITS | Patient Health Record ---
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 Name Role Phone LINDA KHAN Primary Care Provider Hugo Plata Unavailable [phone] Allergies Allergen (clinical drug ingredient) Drug/Non Drug Allergy documented on EMR Reaction Allergy Type Onset Date Status azithromycin Azithromycin Unknown Drug Allergy A ctive clindamycin Clindamycin Unknown Drug Allergy Act aashish Results Component Value Reference Range Notes Lipid Panel-[id number] Reviewed date:09/09/2024 12:30:11 PM Interpretation: Performing Lab:[facility], [address] [facility], Phone - [phone], Director - MDJodry Notes/Report: Cholesterol, Total 269 100-199 mg/dL Triglycerides 73 0-149 mg/dL HDL Cholesterol 96 >39 mg/dL VLDL Cholesterol Corby 12 5-40 mg/dL LDL Chol Calc ([facility]) 161 0-99 mg/dL CBC With Differential/Platel et-[id number] Reviewed date:07/30/2024 07:54:24 AM Interpretation: Performing Lab:[facility], [address] [facility], Phone - [phone], Director - MDJodry Notes/Report: WBC 5.4 3.4-10.8 x10E3/uL RBC 4.58 3.77-5.28 x10E6/uL Hemoglobin 14.4 11.1-15.9 g/dL Hematocrit 42.4 34.0-46.6 % MCV 93 79-97 fL MCH 31.4 26.6-33.0 pg MCHC 34.0 31.5-35.7 g/dL RDW 13.0 11.7-15.4 % Platelets 269 150-450 x10E3/uL Neutrophils 55 Not Estab. % Lymphs 34 Not Estab. % Monocytes 9 Not Estab. % Eos 2 Not Estab. % Basos 0 Not Estab. % Neutrophils (Absolute) 3.0 1.4-7.0 x10E3/uL Lymphs (Absolute) 1.8 0.7-3.1 x10E3/uL Monocytes(Absolute) 0.5 0.1-0.9 x10E3/uL Eos (Absolute) 0.1 0.0-0.4 x10E3/uL Baso (Absolute) 0.0 0.0-0.2 x10E3/uL Immature Granulocytes 0 Not Estab. % Immature Grans (Abs) 0.0 0.0-0.1 x10E3/uL TSH+Free [id number] Reviewed date:07/30/2024 07:54:27 AM Interpretation: Performing Lab:[email or web address], [address] [facility], Phone - [phone], Director - MDJodry Notes/Report: TSH 0.365 0.450-4.500 uIU/mL T4,Free(Direct) 1.20 0.82-1.77 ng/dL Lipid Panel-[id number] Reviewed date:07/30/2024 03:17:56 PM Interpretation: Performing Lab:[email or web address], [address] [place] [address], [place], Phone - [phone], Director - MDJodry Notes/Report: Cholesterol, Total 266 100-199 mg/dL Triglycerides 102 0-149 mg/dL HDL Cholesterol 82 >39 mg/dL VLDL Cholesterol Corby 17 5-40 mg/dL LDL Chol Calc ([facility]) 167 0-99 mg/dL Comp. Metabolic Panel (14)-3 [id number] Reviewed date:07/30/2024 07:54:38 AM Interpretation: Performing Lab:[email or web address], [address] [facility], Phone - [phone], Director - MDJodry Notes/Report: Glucose 92 70-99 mg/dL BUN 5 6-24 mg/dL Creatinine 0.77 0.57-1.00 mg/dL eGFR 90 >59 mL/min/1.73 BUN/Creatinine Ratio 6 9-23 Sodium 138 134-144 mmol/L Potassium 5.0 3.5-5.2 mmol/L Chloride 102 96-106 mmol/L Carbon Dioxide, Total 22 20-29 mmol/L Calcium 9.6 8.7-10.2 mg/dL Protein, Total 7.1 6.0-8.5 g/dL Albumin 4.4 3.8-4.9 g/dL Globulin, Total 2.7 1.5-4.5 g/dL Bilirubin, Total 0.5 0.0-1.2 mg/dL Alkaline Phosphatase 109 44-121 IU/L AST (SGOT) 25 0-40 IU/L ALT (SGPT) 23 0-32 IU/L XR CERVICAL SPINE 4-5 VIEWS Reviewed date:11/21/2024 07:59:09 AM Interpretation: Performing Lab: Notes/Report: Note See Note [facility], a member of [facility] Patient Name: MARÍA OLSON Date of : 1965 Reason for Exam: OTHER Exam Date: 11/18/2024 [id number] EST Report Status: Final Ordering Provider: IKER [...] to the prior neck CTA. Telerad TL ([id number]) -------- FINAL REPOR T -------- Dictated By: Dayami Walker i Dictated Date: 11/19/2024 13:40 ET Assigned Physician: Dayami Diehl Reviewed and Electronically Signed By: Dayami Diehl Signed Date: 025 13:45 ET Workstation ID: [id number] Transcribed By: Self Edit Transcribed Date: 11/19/2024 13:40 ET Reason For Referral Reason Evaluation and manag ement - Dr New Diagnosis 1 Sprain of ribs, init ial encounter (S23.41XA) Referral Organization [facility] Referring Provider First Name MCKEON Referring Provider Last Name [facility] Referring Provider Speciality Internal edicine Referred Provider Specialty Physical Med icine General Notes Referral faxed to Raoul ramez Physical Medicine - Office will call patient for scheduling.Bk Latraya 08/21/2024 04:24:37 PM > Referral Priority Routine Reason Evaluation and manag ement Diagnosis 1 Sprain of ribs, init ial encounter (S23.41XA) Referral Organization [facility] Referring Provider First Name LINDA Referring Provider Last Name [facility] Referring Provider Speciality Internal edicine Referred Provider Specialty Physical Med icine and Rehabilitation General Notes Referral sent to [facility] - Office will call patient for scheduling., Leah Bourgeois 08/27/2024 11:24:16 AM > Referral Priority Routine Reason Evaluation and manag ement Diagnosis 1 Sprain of ribs, init ial encounter (S23.41XA) Referral Organization [facility] Referring Provider First Name LINDA Referring Provider Last Name [facility] Referring Provider Speciality Internal edicine Referred Provider Specialty Pulmonology General Notes Referral sent to [facility] - Office will call patient for scheduling.Bk Latraya 08/27/2024 04:11:52 PM > Referral Priority Routine Reason Please evaluate and treat Diagnosis 1 Spondylolisthesis, l umbar region (M43.16) Referral Organization [facility] Referring Provider First Name Hugo Referring Provider Last Name Sherlyn Referred Provider Specialty Orthopedic S urgery General Notes Referral faxed to Dr Clive Ross per patient's request at [phone]., Adelita Cerrato 10/03/2024 11:16:33 AM > Referral Priority Routine Medications Medication SIG (Take, Route, Frequency, Duration) Notes Start Date End Date Status Ativan 0.5 MG 1 tablet Orally Once a day for 7 days As needed 09/09/2024 Active Amoxicillin-Pot Clavulanate 875-125 MG 1 tablet Orally every 12 hrs for 7 days 07/29/2024 Not-Taking Baclofen 5 MG 1 tablet with food o r milk Orally twice a day for 30 days 09/24/2024 Active Cetirizine HCl 10 MG 1 tablet Orally Onc e a day Active rifAMPin 300 MG take 2 caps Orally daily Not-Taking tiZANidine HCl 4 MG 1 tablet at bedtime as needed Orally Once a day for 20 days 08/21/2024 Active Meloxicam 15 MG 1 tablet Orally Once a day for 30 days 08/21/2024 Not-Taking Cyclobenzaprine HCl ER 15 MG 1 capsule as needed Orally Once a day for 30 days Not-Taking Immunizations Vaccine Route Administration Date Status Comme nts COVID 19 Pfizer Unknown 03/03/2021 Administered COVID 19 Pfizer Unknown 03/24/2021 Administered COVID 19 Pfizer Unknown 06/24/2021 Administered COVID 19 Pfizer Unknown 07/05/2021 Administered COVID Pfizer Unknown 02/02/2022 Administered Flu Unknown 08/23/2020 Administered Flu Shot Unknown 07/28/2023 Administered Hep B, adult dosage, for intramuscular use Unknown 01/17/2022 Administered Hep B, adult dosage, for intramuscular use Unknown 02/21/2022 Administered Influenza, seasonal, injecta ble (split), for 3 yrs and up Unknown 09/23/2020 Administered Influenza, seasonal, injecta ble (split), for 3 yrs and up Unknown 09/19/2022 Administered TDAP Unknown 06/01/2015 Administered TDAP Unknown 01/09/2019 Administered Social History Tobacco Use: Social History Observation Description Date Details (start date - stop date) Current Smoker NA - NA Tobacco Use/Smoking Question Answer Notes Are you a current smoker Problems Problem Type SNOMED Code ICD Code Onset Dates Problem Status W/U Status Risk Notes Problem Autoimmune thyroiditis (68086402) Autoimmune thyroiditis (E06.3) Active confirmed Problem Vitamin deficiency (21231189) Vitamin deficiency, unspecified (E56.9) Active confirmed Problem Mixed hyperlipidemia (481525089) Mixed hyperlipidemia (E78.2) Active confirmed Problem Tobacco user (829649184) Nicotine dependence, cigarettes, uncomplicated (F17.210) Active confirmed Problem Generalized anxiety disorder (56237716) Generalized anxiety disorder (F41.1) Active confirmed Problem Chronic sinusitis (48848919) Chronic sinusitis, unspecified (J32.9) Active confirmed Problem Rheumatoid arthritis (23827071) Other rheumatoid arthritis with rheumatoid factor of unspecified site (M05.80) Active confirmed Problem Acquired spondylolisthesis (081889769) Spondylolisthesis , lumbar region (M43.16) Active confirmed Problem Solitary sacroiliitis (054242793) Sacroiliitis, not elsewhere classified (M46.1) Active confirmed Problem Solitary pulmonary nodule (429193233) Solitary pulmonary nodule (R91.1) Active confirmed Vital Signs Heart Rate 75 /min 09/24/2024 Temperature 97.4 degrees Fahrenheit 09/24/2024 Blood pressure diastolic 76 mm Hg 09/24/2024 Oximetry 98 % 09/24/2024 Height 5'4 in 09/24/2024 Blood pressure systolic 130 mm Hg 09/24/2024 Weight 164 lbs 09/24/2024 BMI 28.15 kg/m2 09/24/2024 Encounters Encounter Location Date Provider Diagnosis [address] [address] 07/29/2024 MCKEON GUL Other rheumatoid arthritis with rheumatoid factor of unspecified site M05.80 ; Latent tuberculosis Z22.7 ; Personal history of COVID-19 Z86.16 ; Generalized anxiety disorder F41.1 ; Nicotine dependence, cigarettes, uncomplicated F17.210 ; Tobacco abuse counseling Z71.6 ; Solitary pulmonary nodule R91.1 ; Autoimmune thyroiditis E06.3 and Acute sinusitis, unspecified J01.[address] [address] 08/16/2024 Ghadeer Mazloum Bilateral temporomandibular joint disorder, unspecified M26.603 ; Chronic sinusitis, unspecified J32.9 and Mixed hyperlipidemia E78.[address] [address] 08/21/2024 MCKEONNOREEN BUCKNERL Sprain of ribs, init ial encounter S23.41XA [address] [place] [address] 09/24/2024 Ghadeer Mazloum Intercostal pain R07 .82 and Sacroiliitis, not elsewhere classified M46.1 [facility] [address] [place] [address] 07/16/2024 [facility] [address] [place] [address] 07/29/2024 [facility] [address] [place] [address] 07/30/2024 [facility] Mixed hyperlipidemia E78.2 [facility] [address] [place] [address] 08/07/[address] [place] [address] 08/19/[address] [place] [address] 08/20/[address] [place] [address] 08/21/2024 MCKEON GUL Sprain of ribs, init ial encounter S23.41XA [facility] [address] [place] [address] 08/28/[address] [place] [address] 09/02/[address] [place] [address] 09/04/2024 MCKEON GUL Left upper quadrant pain R10.12 and Sprain of ribs, initial encounter S23.41XA [facility] [address] [place] [address] 09/16/2024 MCKEON GUL Left upper quadrant pain R10.[address] [place] [address] 10/31/2024 [facility] [address] [place] [address] 07/31/2024 MCKEON GUL Weakness R53.1 and L eft upper quadrant pain R10.12 [facility] [address] [place] [address] 08/14/2024 [facility] [address] [place] [address] 08/20/2024 [facility] [address] [place] [address] 08/20/2024 [facility] [address] [place] [address] 08/20/2024 Hugo [facility] [address] [place] [address] 08/22/2024 [facility] [address] [place] [address] 08/22/2024 [facility] [address] [place] [address] 08/22/2024 [facility] [address] [place] [address] 08/22/2024 [facility] [address] [place] [address] 08/22/2024 [facility] [address] [place] [address] 08/23/2024 [facility] [address] [place] [address] 08/23/2024 [facility] [address] [place] [address] 08/23/2024 [facility] [place] [address] [place] [address] 08/23/2024 MCKEON GUL [facility] [address] [place] [address] 08/23/2024 [facility] [address] [facility] [place] [address] 08/26/2024 MCKEON L [facility] [address] [place] [address] 08/26/2024 [facility] [address] [place] [address] 08/27/2024 [facility] [address] [place] [address] 08/27/2024 [facility] [address] [place] [address] 08/27/2024 [facility] [address] [place] [address] 08/27/2024 [facility] [address] [place] [address] 08/28/2024 [facility] [address] [place] [address] 08/28/2024 [facility] [address] [place] [address] 08/28/2024 [facility] [address] [place] [address] 08/28/2024 [facility] GUL [facility] [address] [place] [address] 08/28/2024 [facility] [address] [place] [address] 08/28/2024 [facility] [address] [place] [address] 08/28/2024 [facility] [address] [place] [address] 08/28/2024 [facility] [address] [place] [address] 08/28/2024 [facility] [address] [place] [address] 08/28/2024 [facility] [address] [place] [address] 08/28/2024 [facility] [address] [place] [address] 08/30/2024 [facility] [address] [place] [address] 09/02/2024 MCKEON [facility] Left upper quadrant pain R10.12 [facility] [address] [place] [address] 09/03/2024 [facility] [address] [place] [address] 09/04/2024 MCKEON [facility] Vitamin deficiency, unspecified E56.9 [facility] [address] [place] [address] 09/04/2024 MCKEON GUL Encounter for screen ing mammogram for malignant neoplasm of breast Z12.31 [facility] [address] [place] [address] 09/05/2024 [facility] [address] [place] [address] 09/06/2024 [facility] [address] [place] [address] 09/09/2024 [facility] [address] [place] [address] 09/11/2024 [facility] [address] [facility] [address] 09/17/2024 [facility] [address] [facility] [address] 09/17/2024 [facility] [address] [place] [address] 09/17/2024 [facility] [address] [place] [address] 09/18/2024 [facility] [address] [place] [address] 09/19/2024 [facility] [address] [place] [address] 09/19/2024 [facility] [address] [facility] [place] [address] 09/25/2024 [facility] [address] [place] [address] 09/26/2024 [facility] [address] [facility] [place] [address] 09/30/2024 [facility] [address] [facility] [place] [address] 10/01/2024 [facility] [address] [facility] [place] [address] 10/01/2024 [facility] [place] [facility] [address] [place] [address] 10/07/2024 [facility] [address] [place] [address] 10/07/2024 [facility] [address] [place] [address] 10/10/2024 [facility] [address] [place] [address] 10/21/2024 Hugo Olguincarlosoctaviano Rib pain on right si de R07.81 [facility] [address] [place] [address] 10/24/2024 Hugo Plata Assessments Encounter Date Diagnosis (ICD Code) Assessment Notes Treatment Notes Treatment Clinical Notes Section Notes 07/29/2024 Other rheumatoid arthritis with rheumatoid factor of unspecified site (ICD-10 - M05.80) María is a 59-year-old lady with rheumatoid arthritis, generalized anxiety disorder here to establish care. Plan is as follows: Rheumatoid arthritis. She sees Dr. Bang at [facility]. 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 Generalized anxiety disorder. Mood is stable on Buspirone 7.5 MG once a day. Nicotine dependence. She is still currently smoking and cessation advised. she is not ready to quit at this point Rock's disease. 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 Acute sinusitis. Start Amoxicillin-Pot Clavulanate, 875-125 MG BID for 7 days along with Flonase nasal spray OD. Solitary pulmonary nodule. She follows up with infectious disease and they have routine chest imaging. She is asymptomatic Eye screening. She sees her global marketing intern Dr. Leonardo regularly. Dental screening. She sees dentist regularly. Breast cancer screening. She is up-to-date on her mammogram. Female screening. She follows up with her director of public safety for breast and pelvic exams. Colon cancer screening. She had her colonoscopy done in 2022 and is on [id number]-cxmys. Immunizations. She is up-to-date on her COVID and influenza vaccinations. Screening blood work before next appointment. General health concerns discussed with patient. Scribe services used to formulate this note under HIPAA compliance and under [place] law mandated for scribe services. Patient aware of service. Verbal consent and written consent taken from the patient. Patient understands and verbalizes understanding of the scribes services and all questions answered regarding scribes services. Patient agrees to use of scribes services. 07/29/2024 Latent tuberculosis (ICD-10 - Z22.7) María is a 59-year-old lady with rheumatoid arthritis, generalized anxiety disorder here to establish care. Plan is as follows: Rheumatoid arthritis. She sees Dr. Bang at [facility]. 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 Generalized anxiety disorder. Mood is stable on Buspirone 7.5 MG once a day. Nicotine dependence. She is still currently smoking and cessation advised. she is not ready to quit at this point Rock's disease. 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 Acute sinusitis. Start Amoxicillin-Pot Clavulanate, 875-125 MG BID for 7 days along with Flonase nasal spray OD. Solitary pulmonary nodule. She follows up with infectious disease and they have routine chest imaging. She is asymptomatic Eye screening. She sees her global marketing intern Dr. Leonardo regularly. Dental screening. She sees dentist regularly. Breast cancer screening. She is up-to-date on her mammogram. Female screening. She follows up with her director of public safety for breast and pelvic exams. Colon cancer screening. She had her colonoscopy done in 2022 and is on [id number]-gakyh. Immunizations. She is up-to-date on her COVID and influenza vaccinations. Screening blood work before next appointment. General health concerns discussed with patient. Scribe services used to formulate this note under HIPAA compliance and under [place] law mandated for scribe services. Patient aware of service. Verbal consent and written consent taken from the patient. Patient understands and verbalizes understanding of the scribes services and all questions answered regarding scribes services. Patient agrees to use of scribes services. 08/16/2024 Chronic sinusitis, unspecified (ICD-10 - J32.9) María is a 59-year-old lady with rheumatoid arthritis, generalized anxiety disorder here for recurrent facial pain. Plan as follows Bilateral TMJ disorder: - She recently saw a dentist, she is a mouth guard. Physical examination is remarkable for popping and crepitation of the TMJ bilateral. Started patient on cyclobenzaprine advised on continuing use in the mouth guard. Chronic sinusitis: - She was treated on antibiotic with no relief, her main concern is his sinus pain. She has an appointment with ENT in October. I did advise on following with ENT as for now will do a CAT scan of maxillofacial and will proceed from there. I have rendered the services for this patient under direct supervision of Dr. 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 Plan as follows Bilateral TMJ disorder: - She recently saw a dentist, she is a mouth guard. Physical examination is remarkable for popping and crepitation of the TMJ bilateral. Started patient on cyclobenzaprine advised on continuing use in the mouth guard. Chronic sinusitis: - She was treated on antibiotic with no relief, her main concern is his sinus pain. She has an appointment with ENT in October. I did advise on following with ENT as for now will do a CAT scan of maxillofacial and will proceed from there. I have rendered the services for this patient under direct supervision of Dr. Khan, who did not see the patient but was available upon request 08/21/2024 Sprain of ribs, initial encounter (ICD-10 - S23.41XA) María is a 59-year-old lady with rheumatoid arthritis, generalized anxiety disorder here for recurrent facial pain and complains of left-sided rib cage pain which has been going on for the past 8 months. History of splenic injury on colonoscopy in the past.. Plan as follows Left-sided rib cage pain. Most likely musculoskeletal pain. The may be a question of floating rib. We will do x-ray meanwhile she can take Tylenol arthritis along with meloxicam 15 mg 1 tablet daily with food and she is given a muscle relaxer. She is also given referral to see Dr. Parra for further evaluation. 08/21/2024 Sprain of ribs, initial encounter (ICD-10 - S23.41XA) 09/02/2024 Left upper quadrant pain (ICD-10 - R10.12) 09/04/2024 Vitamin deficiency, unspecified (ICD-10 - E56.9) 09/04/2024 Encounter for screening mammogram for malignant neoplasm of breast (ICD-10 - Z12.31) 09/04/2024 Left upper quadrant pain (ICD-10 - R10.12) 07/30/2024 Mixed hyperlipidemia (ICD-10 - E78.2) 07/31/2024 Weakness (ICD-10 - R53.1) 09/16/2024 Left upper quadrant pain (ICD-10 - R10.12) 09/24/2024 Sacroiliitis, not elsewhere classified (ICD-10 - M46.1) María is a 59-year-old lady with rheumatoid arthritis, generalized anxiety disorder here for recurrent left-sided rib cage pain which has been going on for the past 8 months.Plan as follows: Intercostal pain: - Tender to palpate BL. Had Xray done by pain management and was negative for abnormalities. There has been an extensive workup done in the past and it has been negative. She had a hematoma on the spleen from C-scope in the past but otherwise no concern. Started patient on Baclofen twice a day. Advised patient on using Lidocaine patches as well. Can take Tylenol for breakthrough pain. She has an MRI tomorrow of the abdomen/pelvis we have also added checking on the lower ribs to r/o any abnormalities. SI joint pain: - She was getting intraarticular injections through pain Management. Referred patient to back to the specialty for different treatment options. I have rendered the services for this patient under direct supervision of Dr. Khan, who did not see the patient but was available upon request 09/24/2024 Intercostal pain (ICD-10 - R07.82) María is a 59-year-old lady with rheumatoid arthritis, generalized anxiety disorder here for recurrent left-sided rib cage pain which has been going on for the past 8 months.Plan as follows: Intercostal pain: - Tender to palpate BL. Had Xray done by pain management and was negative for abnormalities. There has been an extensive workup done in the past and it has been negative. She had a hematoma on the spleen from C-scope in the past but otherwise no concern. Started patient on Baclofen twice a day. Advised patient on using Lidocaine patches as well. Can take Tylenol for breakthrough pain. She has an MRI tomorrow of the abdomen/pelvis we have also added checking on the lower ribs to r/o any abnormalities. SI joint pain: - She was getting intraarticular injections through pain Management. Referred patient to back to the specialty for different treatment options. I have rendered the services for this patient under direct supervision of Dr. Khan, who did not see the patient but was available upon request 10/21/2024 Rib pain on right side (ICD-10 - R07.81) 08/16/2024 Mixed hyperlipidemia (ICD-10 - E78.2) María is a 59-year-old lady with rheumatoid arthritis, generalized anxiety disorder here for recurrent facial pain. Plan as follows Bilateral TMJ disorder: - She recently saw a dentist, she is a mouth guard. Physical examination is remarkable for popping and crepitation of the TMJ bilateral. Started patient on cyclobenzaprine advised on continuing use in the mouth guard. Chronic sinusitis: - She was treated on antibiotic with no relief, her main concern is his sinus pain. She has an appointment with ENT in October. I did advise on following with ENT as for now will do a CAT scan of maxillofacial and will proceed from there. I have rendered the services for this patient under direct supervision of Dr. Khan, who did not see the patient but was available upon request 07/31/2024 Left upper quadrant pain (ICD-10 - R10.12) 09/04/2024 Sprain of ribs, initial encounter (ICD-10 - S23.41XA) 07/29/2024 Personal history of COVID-19 (ICD-10 - Z86.16) María is a 59-year-old lady with rheumatoid arthritis, generalized anxiety disorder here to establish care. Plan is as follows: Rheumatoid arthritis. She sees Dr. Bang at [facility]. 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 Generalized anxiety disorder. Mood is stable on Buspirone 7.5 MG once a day. Nicotine dependence. She is still currently smoking and cessation advised. she is not ready to quit at this point Rock's disease. 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 Acute sinusitis. Start Amoxicillin-Pot Clavulanate, 875-125 MG BID for 7 days along with Flonase nasal spray OD. Solitary pulmonary nodule. She follows up with infectious disease and they have routine chest imaging. She is asymptomatic Eye screening. She sees her global marketing intern Dr. Leonardo regularly. Dental screening. She sees dentist regularly. Breast cancer screening. She is up-to-date on her mammogram. Female screening. She follows up with her director of public safety for breast and pelvic exams. Colon cancer screening. She had her colonoscopy done in 2022 and is on [id number]. Immunizations. She is up-to-date on her COVID and influenza vaccinations. Screening blood work before next appointment. General health concerns discussed with patient. Scribe services used to formulate this note under HIPAA compliance and under [place] law mandated for scribe services. Patient aware of service. Verbal consent and written consent taken from the patient. Patient understands and verbalizes understanding of the scribes services and all questions answered regarding scribes services. Patient agrees to use of scribes services. 07/29/2024 Generalized anxiety disorder (ICD-10 - F41.1) María is a 59-year-old lady with rheumatoid arthritis, generalized anxiety disorder here to establish care. Plan is as follows: Rheumatoid arthritis. She sees Dr. Bang at [facility]. 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 Generalized anxiety disorder. Mood is stable on Buspirone 7.5 MG once a day. Nicotine dependence. She is still currently smoking and cessation advised. she is not ready to quit at this point Rokc's disease. 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 Acute sinusitis. Start Amoxicillin-Pot Clavulanate, 875-125 MG BID for 7 days along with Flonase nasal spray OD. Solitary pulmonary nodule. She follows up with infectious disease and they have routine chest imaging. She is asymptomatic Eye screening. She sees her global marketing intern Dr. Leonardo regularly. Dental screening. She sees dentist regularly. Breast cancer screening. She is up-to-date on her mammogram. Female screening. She follows up with her director of public safety for breast and pelvic exams. Colon cancer screening. She had her colonoscopy done in 2022 and is on [id number]. Immunizations. She is up-to-date on her COVID and influenza vaccinations. Screening blood work before next appointment. General health concerns discussed with patient. Scribe services used to formulate this note under HIPAA compliance and under [place] law mandated for scribe services. Patient aware of service. Verbal consent and written consent taken from the patient. Patient understands and verbalizes understanding of the scribes services and all questions answered regarding scribes services. Patient agrees to use of scribes services. 07/29/2024 Nicotine dependence, cigarettes, uncomplicated (ICD-10 - F17.210) María is a 59-year-old lady with rheumatoid arthritis, generalized anxiety disorder here to establish care. Plan is as follows: Rheumatoid arthritis. She sees Dr. Bang at [facility]. 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 Generalized anxiety disorder. Mood is stable on Buspirone 7.5 MG once a day. Nicotine dependence. She is still currently smoking and cessation advised. she is not ready to quit at this point Rock's disease. 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 Acute sinusitis. Start Amoxicillin-Pot Clavulanate, 875-125 MG BID for 7 days along with Flonase nasal spray OD. Solitary pulmonary nodule. She follows up with infectious disease and they have routine chest imaging. She is asymptomatic Eye screening. She sees her global marketing intern Dr. Leonardo regularly. Dental screening. She sees dentist regularly. Breast cancer screening. She is up-to-date on her mammogram. Female screening. She follows up with her director of public safety for breast and pelvic exams. Colon cancer screening. She had her colonoscopy done in 2022 and is on 15-rgok-[id number]. Immunizations. She is up-to-date on her COVID and influenza vaccinations. Screening blood work before next appointment. General health concerns discussed with patient. Scribe services used to formulate this note under HIPAA compliance and under [place] law mandated for scribe services. Patient aware of service. Verbal consent and written consent taken from the patient. Patient understands and verbalizes understanding of the scribes services and all questions answered regarding scribes services. Patient agrees to use of scribes services. 07/29/2024 Tobacco abuse counseling (ICD-10 - Z71.6) María is a 59-year-old lady with rheumatoid arthritis, generalized anxiety disorder here to establish care. Plan is as follows: Rheumatoid arthritis. She sees Dr. Bang at [facility]. 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 Generalized anxiety disorder. Mood is stable on Buspirone 7.5 MG once a day. Nicotine dependence. She is still currently smoking and cessation advised. she is not ready to quit at this point Rock's disease. 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 Acute sinusitis. Start Amoxicillin-Pot Clavulanate, 875-125 MG BID for 7 days along with Flonase nasal spray OD. Solitary pulmonary nodule. She follows up with infectious disease and they have routine chest imaging. She is asymptomatic Eye screening. She sees her global marketing intern Dr. Leonardo regularly. Dental screening. She sees dentist regularly. Breast cancer screening. She is up-to-date on her mammogram. Female screening. She follows up with her director of public safety for breast and pelvic exams. Colon cancer screening. She had her colonoscopy done in 2022 and is on [id number]-[id number]. Immunizations. She is up-to-date on her COVID and influenza vaccinations. Screening blood work before next appointment. General health concerns discussed with patient. Scribe services used to formulate this note under HIPAA compliance and under [place] law mandated for scribe services. Patient aware of service. Verbal consent and written consent taken from the patient. Patient understands and verbalizes understanding of the scribes services and all questions answered regarding scribes services. Patient agrees to use of scribes services. 07/29/2024 Solitary pulmonary nodule (ICD-10 - R91.1) María is a 59-year-old lady with rheumatoid arthritis, generalized anxiety disorder here to establish care. Plan is as follows: Rheumatoid arthritis. She sees Dr. Bang at [facility]. 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 Generalized anxiety disorder. Mood is stable on Buspirone 7.5 MG once a day. Nicotine dependence. She is still currently smoking and cessation advised. she is not ready to quit at this point Rock's disease. 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 Acute sinusitis. Start Amoxicillin-Pot Clavulanate, 875-125 MG BID for 7 days along with Flonase nasal spray OD. Solitary pulmonary nodule. She follows up with infectious disease and they have routine chest imaging. She is asymptomatic Eye screening. She sees her global marketing intern Dr. Leonardo regularly. Dental screening. She sees dentist regularly. Breast cancer screening. She is up-to-date on her mammogram. Female screening. She follows up with her director of public safety for breast and pelvic exams. Colon cancer screening. She had her colonoscopy done in 2022 and is on [id number]-[id number]. Immunizations. She is up-to-date on her COVID and influenza vaccinations. Screening blood work before next appointment. General health concerns discussed with patient. Scribe services used to formulate this note under HIPAA compliance and under [place] law mandated for scribe services. Patient aware of service. Verbal consent and written consent taken from the patient. Patient understands and verbalizes understanding of the scribes services and all questions answered regarding scribes services. Patient agrees to use of scribes services. 07/29/2024 Autoimmune thyroiditis (ICD-10 - E06.3) María is a 59-year-old lady with rheumatoid arthritis, generalized anxiety disorder here to establish care. Plan is as follows: Rheumatoid arthritis. She sees Dr. Bang at [facility]. 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 Generalized anxiety disorder. Mood is stable on Buspirone 7.5 MG once a day. Nicotine dependence. She is still currently smoking and cessation advised. she is not ready to quit at this point Rock's disease. 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 Acute sinusitis. Start Amoxicillin-Pot Clavulanate, 875-125 MG BID for 7 days along with Flonase nasal spray OD. Solitary pulmonary nodule. She follows up with infectious disease and they have routine chest imaging. She is asymptomatic Eye screening. She sees her global marketing intern Dr. Leonardo regularly. Dental screening. She sees dentist regularly. Breast cancer screening. She is up-to-date on her mammogram. Female screening. She follows up with her director of public safety for breast and pelvic exams. Colon cancer screening. She had her colonoscopy done in 2022 and is on [id number]-[id number]. Immunizations. She is up-to-date on her COVID and influenza vaccinations. Screening blood work before next appointment. General health concerns discussed with patient. Scribe services used to formulate this note under HIPAA compliance and under [place] law mandated for scribe services. Patient aware of service. Verbal consent and written consent taken from the patient. Patient understands and verbalizes understanding of the scribes services and all questions answered regarding scribes services. Patient agrees to use of scribes services. 07/29/2024 Acute sinusitis, unspecified (ICD-10 - J01.90) María is a 59-year-old lady with rheumatoid arthritis, generalized anxiety disorder here to establish care. Plan is as follows: Rheumatoid arthritis. She sees Dr. Bang at [facility]. 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 Generalized anxiety disorder. Mood is stable on Buspirone 7.5 MG once a day. Nicotine dependence. She is still currently smoking and cessation advised. she is not ready to quit at this point Rock's disease. 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 Acute sinusitis. Start Amoxicillin-Pot Clavulanate, 875-125 MG BID for 7 days along with Flonase nasal spray OD. Solitary pulmonary nodule. She follows up with infectious disease and they have routine chest imaging. She is asymptomatic Eye screening. She sees her global marketing intern Dr. Leonardo regularly. Dental screening. She sees dentist regularly. Breast cancer screening. She is up-to-date on her mammogram. Female screening. She follows up with her director of public safety for breast and pelvic exams. Colon cancer screening. She had her colonoscopy done in 2022 and is on 11-uyou-zimql. Immunizations. She is up-to-date on her COVID and influenza vaccinations. Screening blood work before next appointment. General health concerns discussed with patient. Scribe services used to formulate this note under HIPAA compliance and under [place] law mandated for scribe services. Patient aware of service. Verbal consent and written consent taken from the patient. Patient understands and verbalizes understanding of the scribes services and all questions answered regarding scribes services. Patient agrees to use of scribes services. Plan Of Treatment Pending Test Test Name Order Date CT Scan : M-Facial W/O Contrast 08/16/20 MRI : Abdomen with and without Contrast 09/04/2024 Xray: Chest-Standard Frontal & Lat 08/21 CT Abdomen & Pelvis W Cont 09/16/2024 Insurance Providers Payer Name Payer Address Payer Phone Subscriber Number Group Number Insured Name Patient Relationship to Insured Coverage Start Date Coverage End Date [facility] [address] [address] [place] [phone] [id number] RAMAH, MARÍA Self - patient is the insured 0 Medical (General) History Medical History History ICD Code TB treated by ID in [facility] RA treated by DR Bang at [facility] eye disease and see Dr Leonardo generalized anxiety disorder skin sensitivity Surgical History Surgery Date(Month/Year) carpal tunnel strabismus repair Gallbladder removed hernia repair
--- OUTSIDE RECORDS SUMMARY | 2024-12-24 09:01 | XMS_ITS ---
Author Organization [employer] [facility] Address [address] [place] [address] Care Team Providers Care Undergraduate Internship Name Role Phone IKER ROBLERO PA-C Primary Care Provider Unav Latonya Panda Unavailable [phone] REASON FOR VISIT LAB RESULTS Encounters Encounter Location Date Provider Diagnosis [facility] [employer] [address] [address] 12/12/2024 Latonya Lozano Plan Of Treatment No Information Progress Notes * MIS OLSONOB:1965 (59 yo F)Acc No.[id number]:12/12/2024 Patient:?MARCUS OLSON :1965???Age:59 Y???Sex:Female Address:[address] [place] [address], [address] * true * Date:? Generated for Kareeni chema/Hilton/eTransmitting on:?12/24/2024 09:00 AM EST
--- OUTSIDE RECORDS SUMMARY | 2024-12-24 09:01 | XMS_ITS | Encounter Summary ---
Author Organization [facility] Address [address] [place] [address] Care Team Providers Care Er Rn Name Role Phone Unavailable Primary Care Provider Unavailabl e Encounter Details Date Type Department Care Team (Late st Contact Info) Description 08/06/2024 8:23 AM EDT Hospital Encounter TH HISTORIC ENCOUNTERS [facility] ONLY Tutu Trivedi MD [address] [place] [address] Social History Tobacco Use Types Packs/Day Years [...] Info) Description 12/26/2024 8:15 AM EST Appointment [facility] Xray [address] [place] [address] 12/27/2024 3:15 PM EST Office Visit Neurosurgery [place] [facility] [address] [phone] Peggy Leon MD [address] [place] [address] documented as of this encounter Visit Diagnoses Not on filedocumented in this encounter Additional Health Concerns Infection Onset Date Last Indicated Resolved Time Respiratory Rule-Out 12/05/2024 12/05/2024 025 4:51 PM EST Respiratory Rule-Out 12/14/2024 12/14/2024 025 5:56 PM EST COVID-19 Rule-Out 12/14/2024 12/14/2024 12/14/2024 5:56 PM EST documented as of this encounter
--- OUTSIDE RECORDS SUMMARY | 2024-12-24 09:02 | XMS_ITS ---
Author Organization [facility] Address [address] [place] [address] Care Team Providers Care Overcoiler Name Role Phone IKER ROBLERO Unavailable [phone] REASON FOR VISIT Butt pain/pins and needles Encounters Encounter Location Date Provider Diagnosis [address] [address] 12/15/2024 IKER ROBLERO PLAN OF TREATMENT No Information Progress Notes * David OLSONOB:1965 (59 yo F)Acc No.[id number]:12/15/2024 Patient:??María OLSON :1965?Age:59 Y?Sex:Fe male Address:[address] [place] [address] * true * Date:??
--- OUTSIDE RECORDS SUMMARY | 2024-12-24 09:02 | XMS_ITS | Continuity of Care Document ---
Author Organization [facility] Address [address] [place] [address]- Care Team Providers Care Residential Leasing Manager Name Role Phone Araceli Braden Primary Care Physician Encounter [facility] Date(s): 12/13/24 - 12/13/[address] [address]- Discharge Disposition: A-D/C Walkout Attending Physician: Not on Staff, Attending MD Admitting Physician: Not on Staff, Admitting MD Referring Physician: Not on Staff, Referring MD Encounter Type: Disch ES Allergies, Adverse Reactions, Alerts Substance Criticality Severity Reaction Reaction Severity Status erythromycin 1 hives Activ e 1all mycins Immunizations Given and Recorded Vaccine Date Status Refusal Reason influenza virus vaccine, inactivated 1 09/19/22 Gi alyce influenza virus vaccine, inactivated 08/02/21 Nikhil rded influenza virus vaccine, inactivated 09/23/20 Nikhil rded influenza virus vaccine, inactivated 08/23/20 Nikhil rded hepatitis B adult vaccine 02/21/22 Recorded hepatitis B adult vaccine 01/17/22 Recorded SARS-CoV-2 mRNA (ldszxzq-bmwz-evqre) vax 02/02/22 Recorded SARS-CoV-2 (COVID-19) mRNA BNT-162b2 vac 07/05/21 Recorded SARS-CoV-2 (COVID-19) mRNA BNT-162b2 vac 06/24/21 Recorded SARS-CoV-2 (COVID-19) mRNA BNT-162b2 vac 03/24/21 Recorded SARS-CoV-2 (COVID-19) mRNA BNT-162b2 vac 03/03/21 Recorded tetanus/diphtheria/pertussis, acel(Tdap) 01/09/19 Recorded tetanus/diphtheria/pertussis, acel(Tdap) 06/01/15 Recorded 1Result Comment: [facility] [phone] Medications cetirizine 10 mg oral tablet 0 Refills, Maintenance, 06/27/24 2:39:00 PM EDT, Partial fill upon patient request if the prescription is for a schedule II opioid drug. Start Date: 06/27/24 Status: Ordered Repeat number: 1 gabapentin 100 mg oral capsule Refills 0, Maintenance, 12/09/24 2:34:00 PM EST, Partial fill upon patient request if the prescription is for a schedule II opioid drug. Start Date: 12/09/24 Status: Ordered Repeat number: 1 Problem List Condition Confirmation Course Effective Dates Status Health St atus Informant Anxiety disorder Confirmed 02/09/21 Active Rock's thyroiditis Confirmed Active Positive QuantiFERON-TB Gold test 1 Confirmed 05/13/24 Active Cigarette nicotine dependence Confirmed Active Obese class I Confirmed Active Rheumatoid factor positive Confirmed Active 1Pt cx scheduled appt. 2nd appt cx by dept-- patient is being followed in [place], [place]. Vital Signs Most recent to oldest [Reference Range]: 1 2 Height 155 cm (12/13/24 5:42 AM) 155 cm (12/13/24 5:37 AM) Weight 73 kg (12/13/24 5:42 AM) 73 kg (12/13/24 5:37 AM) Oxygen Saturation [94-100 %] 100 % (12/13/24 5:37 AM) Pulse Rate [55-90 bpm] 80 bpm (12/13/24 5:37 AM) Body Mass Index [18.5-24.99 kg/m2] 30.39 kg/m2 *>HHI* (12/13/24 5:37 AM) Blood Pressure [90-138/55-84 mm Hg] 126/ 77mm Hg (12/13/24 5:37 AM) Respiratory Rate [16-30 br/min] 17 br/mi n (12/13/24 5:37 AM) Temperature [96.8-100.4 DegF] 97.9 DegF (12/13/24 5:37 AM) Mode of Delivery (Oxygen) Room air (12/13/24 5:37 AM) Blood pressure sites Arm, left (12/13/24 5:37 AM) Temperature Route Oral (12/13/24 5:37 AM) Dry Weight 73 kg (12/13/24 5:42 AM) 73 kg (12/13/24 5:37 AM) Weight Obtained Via Standing scale (12/13/24 5:37 AM) Dry Weight Obtained Via Standing scale (12/13/24 5:37 AM) Social History Social History Type Response Smoking Status 10 or more cigarette s (1/2 pack or more)/day in last 30 days entered on: 08/19/22 Sex Sex Representation Female (finding) Patient Care team information Care Team Personnel Name: Araceli Braden Position: [facility] Outreach Member Role: PCP Address: [address] [place] [address] [address] Telecom: Name: Terence Olvera Position: [facility] Outreach Member Role: [employer] Consult[employer] Physician Care Team Related Persons Name: JOSE KNOX Name: JAMES SLAUGHTER Name: JOSE OLSON Name: JESSICA OLSON Insurance Providers Guarantor name: MARCUS OLSON Health Plan Information #: 2 Payer: [employer] Member Number: [id number] Policy Number: NA Group Number: [id number] Health Plan Information #: 3 Payer: [employer] [id number] Member Number: [id number] Policy Number: NA Group Number: [id number] Health Plan Information #: 1 Payer: [employer] Member Number: [id number] Policy Number: NA Group Number: [id number]
--- OUTSIDE RECORDS SUMMARY | 2024-12-24 09:02 | XMS_ITS ---
Author Organization [facility] Address [address] [place] [phone] Care Team Providers Care Spray Blender Name Role Phone LINDA KHAN Primary Care Provider [phone] REASON FOR VISIT Transferring out Encounters Encounter Location Date Provider Diagnosis [facility] [address] [phone] 10/31/2024 LINDA KHAN Plan Of Treatment No Information Progress Notes * MIS OLSONOB:1965 (59 yo F)Acc No.[id number]:10/31/2024 Patient:?MARCUS OLSON :1965???Age:59 Y???Sex:Female Address:[address] [place] [id number] * true * Date:? Generated for Renay bear/Hilton/eTransmitting on:?12/24/2024 09:01 AM EST
== END 2024-12-24 09:43 | disposition home or self-care (01) ==
PROVIDERS: PCP Family Medicine; Visit Provider Internal Medicine Rheumatology
DX: M54.50 Low back pain, unspecified (principal); M05.79 Rheumatoid arthritis with rheumatoid factor of multiple sites without organ or systems involvement
CPT/HCPCS: 99215; G2211

== ENCOUNTER → 2025-01-13 10:05 | Outpatient (BNV) | payer OTHER, SELFPAY | PROVIDERS: Visit Provider Radiology Diagnostic Radiology | DX: M51.26 Other intervertebral disc displacement, lumbar region (principal) | CPT/HCPCS: 72148 ==

== ENCOUNTER 2025-01-13 10:06 | Outpatient (REF) | payer OTHER, SELFPAY ==
--- NOTE | ~2025-01-13 | MR_ITS ---
CLINICAL HISTORY: M54.50 - Low back pain, unspecified MR LUMBAR SPINE WITHOUT GADOLINIUM Comparison: None Findings: Minimal grade 1 retrolistheses T12 on L1, L1 on L2 and L2 on L3. No acute fracture or pathologic bone lesion. Cauda equina and conus medullaris within normal limits. T12-L1: Modic type 2 endplate changes. No significant disc displacement. Facet arthropathy. No significant spinal stenosis. Moderate right foraminal stenosis. L1-L2: Biforaminal disc protrusions and facet arthropathy. No significant spinal stenosis. Moderate bilateral foraminal stenoses. L2-L3: Biforaminal disc protrusions and facet arthropathy. No significant spinal stenosis. Mild right and moderate left foraminal stenoses. L3-L4: Moderate disc bulge and facet arthropathy. Mild spinal stenosis. Mild right and moderate left foraminal stenoses. L4-L5: Moderate disc bulge and facet arthropathy. Mild spinal stenosis. Severe bilateral foraminal stenoses, left greater than right. L5-S1: Mild disc bulge and facet arthropathy. No significant spinal stenosis. Moderate left foraminal stenosis. Visualized retroperitoneum unremarkable. Paraspinous musculature intact. IMPRESSION: 1. L3-4 and L4-5 disc bulges with mild spinal stenosis. 2. Multilevel facet arthropathy with varying degrees of foraminal stenoses, most prominent at L4-5. 3. Multilevel grade 1 spondylolistheses. No acute fracture. This document has been electronically signed by: Marian Ferreira DO on 01/14/2025 15:52:49
--- OUTSIDE RECORDS SUMMARY | 2025-01-13 11:13 | XMS_ITS | Encounter Summary ---
Author Organization [facility] Address [address] [place] [address] Care Team Providers Care Life Support Technician Name Role Phone Unavailable Primary Care Provider Unavailabl e Encounter Details Date Type Department Care Team (Late st Contact Info) Description 08/06/2024 8:23 AM EDT Hospital Encounter TH HISTORIC ENCOUNTERS [facility] Tutu Trivedi MD [address] [place] [address] Social History Tobacco Use Types Packs/Day Years [...] Female 10/26/2024 8:32 AM EST Sexual Orientation Choose not to disclose 2024 8:12 AM EST documented as of this encounter Last Filed [...] Care Team (Late st Contact Info) Description 01/22/2025 8:00 AM EDT Office Visit Orthopedic Surgery - [place] [address] [phone] Von Mcclure MD [address] [address] 01/28/2025 9:15 AM EDT Office Visit Endocrinology [address] [address] Lee Garcia MD [address] [place] [phone] documented as of this encounter Visit Diagnoses Not on filedocumented in this encounter Additional Health Concerns Infection Onset Date Last Indicated Resolved Time Respiratory Rule-Out 12/05/2024 12/05/2024 025 4:51 PM EST Respiratory Rule-Out 12/14/2024 12/14/2024 025 5:56 PM EST COVID-19 Rule-Out 12/14/2024 12/14/2024 12/14/2024 5:56 PM EST documented as of this encounter
--- OUTSIDE RECORDS SUMMARY | 2025-01-13 11:13 | XMS_ITS ---
Author Organization [facility] Address [address] [place] [phone] Care Team Providers Care Horseback Excavator Name Role Phone IKER ROBLERO PA-C Primary Care Provider Unav Latonya Panda Unavailable [phone] REASON FOR VISIT LAB RESULTS Encounters Encounter Location Date Provider Diagnosis [facility] [address] [address] 12/12/2024 Latonya oLzano Plan Of Treatment No Information Progress Notes * MIS OLSONOB:1965 (59 yo F)Acc No.[id number]:12/12/2024 Patient:?MARCUS OLSON :1965???Age:59 Y???Sex:Female Address:[address] [place] [address], [address] * true * Date:? Generated for Kareeni chema/Hilton/eTransmitting on:?01/13/2025 11:13 AM EDT
--- OUTSIDE RECORDS SUMMARY | 2025-01-13 11:14 | XMS_ITS | Encounter Summary ---
Author Organization [facility] Address [address] [place] [address] Care Team Providers Care Chute Puller Name Role Phone Araceli Augustin Primary Care Provider + Reason for Visit * Reason Comments Pain Pain * Consultation (Routine) - Pending Review Specialty Diagnoses / Procedures Referred By Corine strange Referred To Contact Orthopaedic Surgery Diagnoses Pain in unspecified shoulder Araceli Augustin PA 299 [facility] [address] [place] [address] Phone: tel: Yazmin Whiteside PA 175 [facility] [address] [place] [address] Phone: tel: fax: Referral ID Status Reason Start Date Expiration Date Visits Requested Visits Authorized [id number] Pending Review Specialty Services Required 01/02/2025 01/02/2026 1 1 Encounter Details Date Type Department Care Team (Late st Contact Info) Description 01/08/2025 9:00 AM EST Consult Orthopedic Surgery - [place] 175 [facility] [address] [place] [address] Nichelle Archibald PA 174 [facility] [address] [place] [address] Arthritis of right shoulder region (Primary Dx); Pain in unspecified shoulder; Calcific tendinitis of both shoulders Social History Tobacco Use Types Packs/Day Years [...] AM EST documented as of this encounter Functional Status [...] Tracee Cassidy RN documented in this encounter Patient Instructions * Attachments The following attachments cannot be sent through Care Everywhere. * Rotator Cuff: Exercises (Tamazight) documented in this encounter Progress Notes * TL Dobsb - 01/08/2025 9:00 AM EST CHIEF COMPLAINT: Pain of the Right Shoulder and Pain of the Left Shoulder had concerns including Pain of the Right Shoulder and Pain of the Left Shoulder. IDENTIFIER: María Phillips is a 59 y.o. old female SUBJECTIVE: María Phillips is here for different problem of bilateral shoulder pain. Patient has multiple orthopedic issues. 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 He has a history of carpal tunnel surgery done around 2018. She had right arm pain and numbness tingling and has had a workup for this including a recent EMG nerve conductiontest that showed no evidence of recurrence of carpal tunnel. Cervical spine x-rays and MRI has shown considerable stenosis of the cervical spine and she is seeing neurosurgery and Dr. Leon with somediscussion of C-spine fusion. She does have right arm pain and does also report some right chronic shoulder pain. No injury to her shoulders or prior surgery to either shoulder. More recently over the past 3 weeks she has been having increasing left greater than right shoulder pain and does feel her left shoulder is cracking. Of note she also sees pain management, [facility]. And she states there is a plan to do an epidural for her cervical spine. PAST MEDICAL/SURGICAL HISTORY: Patient Active Problem List Diagnosis Date Noted Acute bilateral low back pain with bilateral sciatica 01/02/2025 Cervical spondylosis 11/05/2024 Abdominal pain 08/01/2024 Change in bowel habits 08/01/2024 Epigastric pain 08/01/2024 Throat pain 08/01/2024 Post-traumatic osteoarthritis of left knee 10/03/2023 Primary osteoarthritis of right knee 10/03/2023 Thyroid nodule 07/05/2021 Other specified anxiety disorders 02/09/2021 Rheumatoid arthritis (CMS/HCC) 12/25/2020 Carpal tunnel syndrome 01/23/2020 Episcleritis of both eyes 01/07/2020 Fibromyalgia 12/24/2019 Positive anti-CCP test 11/27/2019 Stress fracture of foot 07/26/2019 Incisional hernia, without obstruction or gangrene 08/02/2018 Sebaceous cyst 06/21/2018 Abnormal mammogram of left breast 07/18/2016 Past Surgical History: Procedure Laterality Date BREAST BIOPSY Left 2016 b9 fibrous tissue BREAST SURGERY Left 2016 b9 fibrous tissue CARPAL TUNNEL RELEASE Right 01/20/2020 PROCEDURE: ND NEUROPLASTY &/TRANSPOS MEDIAN NRV CARPAL TUNNE COLONOSCOPY EYE SURGERY 1974 HERNIA REPAIR 07/28/2018 Laparoscopic repair of an incarcerated incisional hernia; Dr. Keenan ORTHOPEDIC SURGERY 1996 Left ACL OTHER SURGICAL HISTORY 12/2017 Dr. 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 [facility] MEDICATIONS DISCONTINUED/REORDERED: There are no discontinued medications. ACTIVE MEDICATIONS: Current Outpatient Medications on File Prior to Visit Medication Sig Dispense Refill acetaminophen (TYLENOL) 325 mg tablet (Patient not taking: Reported on 12/27/2024) ascorbic acid (VITAMIN C) 250 mg tablet Take 1 tablet (250 mg total) by mouth. cetirizine (ZyrTEC) 10 mg tablet Take 1 tablet (10 mg total) by mouth 1 (one) time each day. cholecalciferol (VITAMIN D-3) 25 mcg (1,000 unit) tablet Take 1 tablet (1,000 Units total) by mouth. cyanocobalamin (VITAMIN B-12) 1,000 mcg tablet Take 1 tablet (1,000 mcg total) by mouth. docusate sodium (COLACE) 100 mg capsule estradioL (VIVELLE-DOT) 0.0375 mg/[address] 1 patch on the skin 2 (two) times a week. gabapentin (NEURONTIN) 300 mg capsule (Patient not taking: Reported on 12/27/2024) ibuprofen (ADVIL,MOTRIN) 600 mg tablet LORazepam (ATIVAN) 1 mg tablet TAKE 1 TABLET BY MOUTH 3 TIMES A DAY IF NEEDED FOR ANXIETY FOR UP TO5 DAYS. MAX DAILY AMOUNT 3 TAB Oral for 5 Days (Patient not taking: Reported on 12/27/2024) melatonin 10 mg tablet Take 1 tablet (10 mg total) by mouth. methocarbamoL (ROBAXIN) 750 mg tablet 1 tablet (750 mg total) every 4 hours. oxyCODONE (ROXICODONE) 5 mg immediate release tablet (Patient not taking: Reported on 12/27/2024) progesterone (PROMETRIUM) 100 mg capsule TAKE 1 CAPSULE BY MOUTH EVERY DAY AT BEDTIME FOR 90 DAYS sucralfate (CARAFATE) 1 gram tablet Take 1 tablet (1 g total) by mouth 4 (four) times a day. Take 1hour before meals and at bedtime 120 each 11 traZODone (DESYREL) 50 mg tablet TAKE ONE TAB NIGHTLY NEEDED FOR SLEEP. (Patient not taking: Reported on 12/27/2024) No current facility-administered medications on file prior to visit. ALLERGIES: Allergies Allergen Reactions Erythromycin Hives and Rash all mycins Other reaction(s): Hives/Urticaria Other reaction(s): Hives/Urticaria all mycins all mycins Clindamycin Hives Duloxetine Hcl Rash Infliximab Twiching legs, burning scalp, headache PHYSICAL EXAM: Visit Vitals OB Status Postmenopausal Smoking Status Every Day APPEARANCE: Alert and in no acute distress EYES: conjunctivae and sclerae normal EXTREMITIES: Extremities warm and well perfused without clubbing, cyanosis, or edema Bilateral shoulders no skin abnormalities or atrophy. Active forward flexion of bilateral shoulders is 170, ER 55 and internal rotation to T12 bilaterally. Passively full range of motion of bilateral shoulders with no evidence of a frozen shoulder. Negative Neer's and Serrano test on the left, mildly positive Neer's and Serrano test on the right. Negative drop arm test bilaterally. Strength intact in IR ER and supraspinatus. No crepitus to either shoulder but with rotation of the left shoulder there is some soft tissue clicking at subacromial space. Pain to palpation over bilateral subacromial spaces. VASCULAR:well perfused with normal pulses in the distal extremities and no peripheral edema noted NEURO: Awake, alert and oriented SKIN: Skin color, texture, turgor normal. No rashes or lesions. PSYCH: does not appear depressed or anxious and oriented to time, place and person LABS/IMAGING: Lab Results Component Value Date HGBA1C 5.4 10/28/2024 Xrays reviewed: XR Shoulder 2+ Views bilat Date of Visit: 01/08/2025 Reason for visit: Bilateral shoulder pain Views: AP, Grashey, Y, axillary bilateral shoulders Comparison: None Findings: Right shoulder narrowing of subacromial space. No proximal migration of the humeral head. There is a calcification adjacent greater tuberosity. Mild inferior glenohumeral arthritis noted. Left shoulder no significant arthritis. No proximal migration of the humeral head. There is narrowing of subacromial space and calcification lateral to the greater tuberosity. Impression: Right shoulder mild glenohumeral arthritis. Calcification and narrowing of subacromial space. ibrinous base . Left shoulder calcific tendinitis and narrowing of subacromial space IMPRESSION: 1. Arthritis of right shoulder region 2. Pain in unspecified shoulder 3. Calcific tendinitis of both shoulders PLAN: The details of the visit were reviewed with the patient. Pertinent history, and objective findings were reviewed, along with the diagnoses: Bilateral shoulder calcific tendinitis and probable impingement. Mild arthritis of right shoulder joint. Discussed with patient treatment options discussed anti-inflammatories, heat and exercises. For the left shoulder that is more painful now ,we discussed subacromial injection but she is going to be having a epidural injection for C- spine January 21 and wants to wait. She will call for an appointment with me at a later date if she wants to proceed with subacromial injection. . María Phillips acknowledges understanding of the above plan and agrees to follow recommendations and/or take medications as prescribed. Orders Placed This Encounter Procedures XR Shoulder 2+ Views bilat @ELECSIG@ documented in this encounter Plan of Treatment Upcoming Encounters Date Type Department Care Team (Late st Contact Info) Description 01/22/2025 8:00 AM EDT Office Visit Orthopedic Surgery - [place] [address] [phone] Von Mcclure MD [address] [address] 01/28/2025 9:15 AM EDT Office Visit Endocrinology [address] [phone] Lee Garcia MD 5 [place] [phone] documented as of this encounter Results * XR Shoulder 2+ Views bilat (01/08/2025 9:31 AM EST) Anatomical Region Laterality Modality Upper Extremities, Shoulder Bilateral Comp uted Radiography Narrative 01/08/2025 9:55 AM EST Date of Visit: 01/08/2025 Reason for visit: Bilateral shoulder pain Views: AP, Grashey, Y, axillary bilateral shoulders Comparison: None Findings: Right shoulder narrowing of subacromial space. ??No proximal migration of the ??humeral head. ??There is a calcification adjacent greater tuberosity. ??Mild inferior glenohumeral arthritis noted. ??Left shoulder no significant arthritis. ??No proximal migration of the humeral head. ??There is narrowing of subacromial space and calcification lateral to the greater tuberosity. Impression: Right shoulder mild glenohumeral arthritis. ??Calcification and narrowing of subacromial space. ibrinous base . ??Left shoulder calcific tendinitis and narrowing of subacromial space us Nichelle BOOTHE IMG XR PROCEDURES Final Resul t documented in this encounter Visit Diagnoses Diagnosis Arthritis of right shoulder region- Primary Pain in unspecified shoulder Calcific tendinitis of both shoulders documented in this encounter Orders Outpatient Referral Count Last Ordered Date Fir st Ordered Date AMB REFERRAL TO ORTHOPEDIC SURGERY 1 2024 documented in this encounter Care Teams Chute Puller Relationship Specialty Start Date End Date Araceli Augustin PA [address] [place] [phone] PCP - General 11/20/24 documented as of this encounter
--- OUTSIDE RECORDS SUMMARY | 2025-01-13 11:14 | XMS_ITS | Encounter Summary ---
Author Organization [facility] Address [address] [place] [address] Care Team Providers Care Furnace Charging Machine Operator Name Role Phone Araceli Augustin Primary Care Provider + Encounter Details Date Type Department Care Team ([facility] st Contact Info) Description 01/03/2025 Telephone Neurosurgery [facility] [address] [facility] [address] [place] [address] [facility] Social History Tobacco Use Types Packs/Day [...] in this encounter Progress Notes * TL Knowles - 01/03/2025 4:45 PM EST Spoke to the patient. She was requesting the home traction unit that Dr. Leon recommended. I filled out a form for a Zynex apical traction unit. * Kanika Perez MA - 01/03/2025 12:08 PM EST Patient called with update re: lumbar mri, there was some confusion on where order needed to be sent when patient had to leave town emergently (not ordered by our office). Patient also states that her arm symptoms are worse than when she was here a week ago. Please call [phone] documented in this encounter Plan of Treatment Upcoming Encounters Date Type Department Care Team (Late st Contact Info) Description 01/22/2025 8:00 AM EDT Office Visit Orthopedic Surgery - [place] [address] [phone] Von Mcclure MD 175 [facility] [place] [address] [place] [address] 01/28/2025 9:15 AM EDT Office Visit Endocrinology - [place] [address] [place] [address] Lee Garcia MD [address] [place] [phone] documented as of this encounter Visit Diagnoses Not on filedocumented in this encounter Care Teams Furnace Charging Machine Operator Relationship Specialty Start Date End Date Araceli Augustin PA [address] [place] [phone] PCP - General 11/20/24 documented as of this encounter
--- OUTSIDE RECORDS SUMMARY | 2025-01-13 11:14 | XMS_ITS | Encounter Summary ---
Author Organization [facility] Address [address] [place] [address] Care Team Providers Care Fish Hatchery Worker Name Role Phone Araceli Augustin Primary Care Provider + Encounter Details Date Type Department Care Team ([facility] st Contact Info) Description 12/16/2024 Telephone Neurosurgery [facility] [address] [facility] [address] [place] [address] [facility] [place] Social History Tobacco Use Types Packs/Day [...] joints. Does not yet have appt with [facility] neuro[facility]. Cielo, Do you have sooner appt [...] AM EDT Office Visit Orthopedic Surgery - [place] [address] [phone] Von Mcclure MD [address] [address] 01/28/2025 9:15 AM EDT Office Visit Endocrinology - [place] [address] [place] [address] Lee Garcia MD [address] [place] [phone] documented as of this encounter Visit Diagnoses Not on filedocumented in this encounter Care Teams Fish Hatchery Worker Relationship Specialty Start Date End Date Araceli Augustin PA [address] [phone] PCP - General 11/20/24 documented as of this encounter
--- OUTSIDE RECORDS SUMMARY | 2025-01-13 11:14 | XMS_ITS ---
Author Organization [facility] Address [address] [facility] [address] [place] [address] Care Team Providers Care Parking Lot Signaler Name Role Phone LINDA KHAN Primary Care Provider [phone] Hugo Plata Unavailable [phone] REASON FOR VISIT Excruciating pain Encounters Encounter Location Date Provider Diagnosis [facility] [address] [facility] [address] [place] [address] 10/21/2024 Hugo Plata Rib pain on right side R07.81 Assessments Encounter Date Diagnosis (ICD Code) Assessment Notes Treatment Notes Treatment Clinical Notes Section Notes 10/21/2024 Rib pain on right side (ICD-10 - R07.81) Plan Of Treatment No Information Progress Notes * MIS OLSONOB:1965 (59 yo F)Acc No.[id number]:10/21/2024 Patient:?MARCUS OLSON :1965???Age:59 Y???Sex:Female Address:[address] [place] [address] Subjective: * Chief Complaints: * ???Excruciating pain * Medical History:? * Surgical History:? * Hospitalization/Major Diagno stic Procedure:? * Medications:? Objective: * Vitals:? * Physical Examination:? Assessment: * Assessment: 1.?Rib pain on right side - R07.81 (Primary)??? Plan: * Treatment: * Procedure Codes:? * true * Date:? Generated for Kareeni chema/Hilton/eTransmitting on:?01/13/2025 11:14 AM EDT
--- OUTSIDE RECORDS SUMMARY | 2025-01-13 11:14 | XMS_ITS | Encounter Summary ---
Author Organization [facility] Address [address] [place] [phone] Care Team Providers Care Lime Plant Operator Name Role Phone Araceli Augustin Primary Care Provider + Reason for Visit * Reason Onset Date Comments Advice Only 01/08/2025 Epidural opinion Encounter Details Date Type Department Care Team ([facility] st Contact Info) Description 01/08/2025 Telephone Neurosurgery [facility] 175 [facility] [address] [place] [phone] Peggy Leon MD 175 [place] [address] Advice Only (Epidural opinion) Social History Tobacco Use Types Packs/Day Years [...] of Assessment Author No 12/14/2024 7:39 PM EST Tracee Jordan RN * Are you blind or do [...] encounter Progress Notes * TL Knowles - 01/09/2025 3:22 PM EST I spoke to Ms. Phillips and said that it would be okay for her to get an epidural steroid injection. * Fay Romero - 01/08/2025 10:16 AM EST Patient called to get an opinion on her getting an epidural that pain management is offering. Told her that it may be by the end of the day tomorrow possibly that someone may get back to her. documented in this encounter Plan of Treatment Upcoming Encounters Date Type Department Care Team (Late st Contact Info) Description 01/22/2025 8:00 AM EDT Office Visit Orthopedic Surgery - [place] [address] [phone] Von Mcclure MD [address] [address] 01/28/2025 9:15 AM EDT Office Visit Endocrinology - [place] [address] [place] [address] Lee Garcia MD [address] [place] [address] documented as of this encounter Visit Diagnoses Not on filedocumented in this encounter Care Teams Lime Plant Operator Relationship Specialty Start Date End Date Araceli Augustin PA [address] [place] [phone] PCP - General 11/20/24 documented as of this encounter
--- OUTSIDE RECORDS SUMMARY | 2025-01-13 11:14 | XMS_ITS | Encounter Summary ---
Author Organization [facility] Address [address] [place] [address] Care Team Providers Care Sexual Assault Counsellor Name Role Phone Araceli Augustin Primary Care Provider + Reason for Visit * Reason Comments Extremity Weakness BILATERAL LEG NUMBNE SS X4 DAYS Encounter Details Date Type Department Care Team (Late st Contact Info) Description 12/14/2024 2:01 PM EST - 12/14/2024 9:20 PM EST Emergency [facility] Emergency [address] [place] [address] Acute bilateral low back pain, [...] a primary care physician, please call the [facility] at [phone] [facility] a new primary care physician. Please return to the emergency department if you develop any severe change in your symptoms, or if you experience any other new or worsening symptoms or concerns. * Attachments The following attachments cannot be sent through Care Everywhere. * Back Pain (American) * Numbness and Tingling (American) documented in this encounter Medications at Time [...] 1 tablet (1,000 mcg total) by mouth. estradioL (VIVELLE-DOT) 0.0375 mg/[address] 1 patch on the skin 2 (two) times a week. 12/09/2024 LORazepam (ATIVAN) 1 mg tablet TAKE 1 TABLET BY MOUTH 3 TIMES A DAY IF NEEDED FOR ANXIETY FOR UP TO 5 DAYS. MAX DAILY AMOUNT 3 TAB Oral for 5 Days melatonin 10 mg tablet Take 1 tablet (10 mg total) by mouth. methocarbamoL (ROBAXIN) 750 mg tablet 1 tablet (750 mg total) every 4 hours. progesterone (PROMETRIUM) 100 mg capsule TAKE 1 CAPSULE BY MOUTH EVERY DAY AT BEDTIME FOR 90 DAYS 12/09/2024 sucralfate (CARAFATE) 1 gram tablet Take 1 tablet (1 g total) by mouth 4 (four) times a day. Take 1 hour before meals and at bedtime 120 each 11 11/20/2024 11/20/2025 traZODone (DESYREL) 50 mg tablet TAKE ONE TAB NIGHTLY NEEDED FOR SLEEP. 12/10/2024 traMADoL (ULTRAM) 50 mg tablet Take 1 [...] outpatient lumbar puncturedone by her neurologist through [facility]. Denies any IVDU, recent steroid use, [...] objects appropriately, follows simple commands, finger-nose and ghlp-tx-sfpw testing are intact. PSYCHIATRIC: Normal affect, fluid [...] Detected Narrative: Testing was performed using the Big[employer] Respiratory Pathogen PCR Assay. All results must [...] REFLEX MICROSCOPIC AND CULTURE - Normal Specific Cameron Urine 1.012 pH, Urine 7.5 Leukocytes, Urine Negative Nitrite, Urine Negative Protein, Urine Negative Glucose, Urine Negative Ketones, Urine Negative Urobilinogen, Urine 0.2 Bilirubin, Urine Negative Blood, Urine Negative CBC AND DIFFERENTIAL Narrative: The following orders were created for panel order CBC and differential. Procedure Abnormality Status --------- ------ CBC auto differential[[id number]] Abnormal Final result Please view results for these tests on the individual orders. URINALYSIS WITH REFLEX MICROSCOPIC AND CULTURE Narrative: The following orders were created for panel order Urinalysis with reflex microscopic and culture. Procedure Abnormality Status --------- ------ Urinalysis with reflex ...[[id number]] Normal Final result Inman urine culture tube[[id number]] Final result Please view results for these [...] tablet 5 mg (5 mg oral Given 2/06/30 1732) ketorolac (TORADOL) injection 30 mg (30 mg [...] own to the bathroom and back. [YB] 192 Patient reports her pain is unchanged, she appears comfortable on exam, was able to ambulate with a stable gait and has good strength to her lower extremities and upper extremities with intact sensation to light touch. I discussed the case further with Dr. Nina, will obtain lumbar spine x-rayand give additional pain control. [YB] 2101 Patient reports again no change to her [...] will be discharged with outpatient follow-up. Stephanie Nina DO 12/14/24 10:07 PM EST Stephanie Nina, DO TL Brooks 12/14/24 1617 TL Brooks 12/14/242114 TL Brooks 12/14/242114 Stephanie Nina, DO 12/14/24 2210 documented in this encounter [...] AM EDT Office Visit Orthopedic Surgery - [place] [address] [address] Von Mcclure MD [address] [address] 01/28/2025 9:15 AM EDT Office Visit Endocrinology [address] [address] Lee Garcia MD [address] [place] [address] documented as of this encounter Procedures Procedure Name Priority Date/Time Associated Diagnosis Comments XR LUMBAR SPINE 2-3 VIEWS STAT 12/14/2024 8:26 PM EST URINALYSIS WITH REFLEX MICROSCOPIC AND CULTURE STAT 12/14/2024 5:16 PM EST IMNAN URINE CULTURE TUBE STAT 12/14/2024 5:16 PM [...] Signed Date: 12/15/2024 07:42 ET Workstation ID: [id number] Transcribed By: Self Edit Transcribed Date: 12/15/2024 [...] Signed Date: 12/15/2024 07:42 ET Workstation ID: [id number] Transcribed By: Self Edit Transcribed Date: 12/15/2024 07:40 ET us Dwight [facility]OT[facility] IMG XR PROCEDURES Final Result * Inman urine culture tube (12/14/2024 5:16 PM EST) Extra Tube Hold for add-ons. 12/14/2024 7:02 PM EST RICARDO VALLE [place] ([facility] Comment:Auto resulted. Urine Urine specimen obtained by clean catch procedure / Unknown Non-blood Collection / Unknown 12/14/2024 5:16 PM EST 12/14/2024 5:38 PM EST us Dwight [facility] LAB URINE ORDERABLES Final Resul t [facility] [address] [place] [address], [place] [phone] * Urinalysis with reflex microscopic and culture (12/14/2024 5:16 PM EST) Specific Cameron Urine 1.012 1.003 - 1.030 LAB URINALYSIS [...] [facility] LAB URINE ORDERABLES Final Resul t RICARDO VALLE [place] ([facility] [address] [place] [address], * CT Head wo Contrast (12/14/2024 4:54 [...] GEMUSE QTc 445 ms GEMUSE P Wave Andrews 40 degrees GEMUSE R Andrews 6 degrees GEMUSE T Andrews 26 degrees GEMUSE ECG Interpretation Normal sinus rhythm Nonspecific T wave abnormality Abnormal ECG When compared with ECG of 26-OCT-2024 07:05, No significant change was found Confirmed by Lydia JEFFERSON YUFENG ([id number]) on 12/14/2024 5:33:44 PM GEMUSE 12/14/2024 4:37 PM EST 12/14/2024 5:33 PM EST Pepe Mar DO ECG ORDERABLES Final Resul t GEMUSE * Respiratory virus panel molecular study (12/14/2024 4:28 PM EST) Pathologist [facility] Adenovirus Detection by PCR [...] LAB MICROBIOLOGY METHOD 12/14/2024 5:56 PM EST [facility] Parainfluenza Virus 3 Not Detected [...] 4:28 PM EST 12/14/2024 4:34 PM EST [facility] - 12/14/2024 5:56 PM EST Testing was performed using the BigBad Respiratory Pathogen PCR Assay. All results must [...] that are below the limit of detection. [facility] LAB MICROBIOLOGY - GENERAL ORDER KAILASH Final Result Performing Organization Address [facility]/ZIP Co de Phone Number [facility] [address] [place] [address], [place] [phone] * Phosphorus (12/14/2024 12:01 PM EST) [facility] Phosphorus 3.5 2.5 - 4.5 mg/dL LAB CHEMISTRY METHOD 12/14/2024 4:31 PM EST [facility] Blood Venous blood specimen / Unknown Venipuncture / Unknown 12/14/2024 12:01 PM EST 12/14/2024 12:24 PM EST [facility] LAB BLOOD ORDERABLES Final Resul t Performing Organization Address [facility]/ZIP Co de Phone Number [facility] [address] [place] [address], [place] [phone] * (ABNORMAL) CBC auto differential (12/14/2024 12:01 PM EST) [facility] WBC 8.5 4.8 - 10.8 K/mcL LAB [...] LAB HEMETOLOGY METHOD 12/14/2024 12:29 PM EST [facility] Lymphocytes Absolute 1.52 1.00 - 5.00 K/[facility] LAB HEMETOLOGY METHOD 12/14/2024 12:29 PM EST [facility] Monocytes Absolute 0.59 0.20 - 1.00 K/mcL LAB HEMETOLOGY METHOD 12/14/2024 12:29 PM EST [facility] Eosinophils Absolute 0.07 0.00 - 0.50 K/[facility] HEMETOLOGY METHOD 12/14/2024 12:29 PM EST [facility] Basophils Absolute 0.03 0.00 - 0.20 K/[facility] HEMETOLOGY METHOD 12/14/2024 12:29 PM EST [facility] Immature Granulocytes Absolute 0.03 0.00 - 0.03 K/[facility] LAB HEMETOLOGY METHOD 12/14/2024 12:29 PM EST [facility] Blood Venous blood specimen / Unknown Venipuncture / Unknown 12/14/2024 12:01 PM EST 12/14/2024 12:24 PM EST us Pepe Mar DO LAB BLOOD ORDERABLES Final Result [facility] [address] [place] [address], * Magnesium (12/14/2024 12:01 PM EST) Magnesium 2.0 1.9 - 2.6 mg/dL LAB CHEMISTRY METHOD 12/14/2024 12:51 PM EST [facility] Blood Venous blood specimen / Unknown Venipuncture / Unknown 12/14/2024 12:01 PM EST 12/14/2024 12:24 PM EST us Pepe Mar DO LAB BLOOD ORDERABLES Final Result [facility] [address] [place] [address], * (ABNORMAL) Basic metabolic panel (12/14/2024 12:01 [...] 15.9 LAB CHEMISTRY METHOD 12/14/2024 12:59 PM [facility] Calcium 9.6 8.5 - 10.5 mg/dL LAB CHEMISTRY METHOD 12/14/2024 12:59 PM [facility] Blood Venous blood specimen / Unknown Venipuncture / Unknown 12/14/2024 12:01 PM EST 12/14/2024 12:24 PM EST Pepe Mar DO LAB BLOOD ORDERABLES Final Result [facility] [address] [place] [address], * ECG-Annotated (12/14/2024) Provider Onbase MD ECG ORDERABLES Final Result [...] On 12/14/24 at 1703, For 1 dose 1730 (Given - Provid er: Amparo Hu RN) [...] documented as of this encounter Care Teams Sexual Assault Counsellor Relationship Specialty Start Date End Date Araceli Augustin PA [address] [phone] PCP - General 11/20/24 documented as of this encounter
--- OUTSIDE RECORDS SUMMARY | 2025-01-13 11:14 | XMS_ITS | Encounter Summary ---
Author Organization [facility] Address [address] [place] [address] Care Team Providers Care Floor Covering Printer Name Role Phone Araceli Augustin Primary Care Provider + Reason for Visit * Reason Onset Date Comments Prior Authorization 11/20/2024 Encounter Details Date Type Department Care Team (Late st Contact Info) Description 11/20/2024 Telephone Gastroenterology - [place] [address] [place] [phone] Rajan Sanders PA [address] [place], [place] [phone] Prior Authorization Social History Tobacco Use Types [...] this a Cover My Meds request: YES [id number] Name of Medication sucralfate (CARAFATE) Dose of Medication 100 mg/mL suspension What is the RX # from the faxed refill? How does patient take this med? Take 10 mL (1 g total) by mouth 4 (four) times a day (with meals and nightly). Take 1 hour before meals and at bedtime What Pharmacy did the fax come from: [facility] Pharmacy fax #: [phone]. documented in this encounter Plan of Treatment Upcoming Encounters Date Type Department Care Team (Late st Contact Info) Description 01/22/2025 8:00 AM EDT Office Visit Orthopedic Surgery - [place] [address] [facility] [address] [place] [phone] Von Mcclure MD 175 [facility] [address] [place] [address] 01/28/2025 9:15 AM EDT Office Visit [facility]ocrinology [facility] [address] [place] [address] Lee Garcia MD [address] [place] [phone] documented as of this encounter Visit Diagnoses Not on filedocumented in this encounter Additional Health Concerns Infection Onset Date Last Indicated Resolved Time Respiratory Rule-Out 12/05/2024 12/05/2024 025 4:51 PM EST Respiratory Rule-Out 12/14/2024 12/14/2024 025 5:56 PM EST COVID-19 Rule-Out 12/14/2024 12/14/2024 12/14/2024 5:56 PM EST documented as of this encounter Care Teams Floor Covering Printer Relationship Specialty Start Date End Date Araceli Augustin PA 299 [facility] [address] [place] [phone] PCP - General 11/20/24 documented as of this encounter
--- OUTSIDE RECORDS SUMMARY | 2025-01-13 11:14 | XMS_ITS | Continuity of Care Document ---
Author Organization [facility] [address] [address] [place] [address] Phone [phone] Care Team Providers Care Orchard Sprayer Name Role Phone Vee Queen M.D Care Team Informanaly duarte Crucible Furnace Tender [phone] Problems Active Problems Provider Date Anxiety Eric Shah M.D. Onset: 1 11/12/2021 Rock thyroiditis Eric Shah M.D. On set: 09/12/2022 Social History Type Date Description Comments Sex Unknown Tobacco Use Start: Unknown End: Unknown Patient is a former smoker Allergies and adverse reactions Active Allergies Criticality Reaction Severity Comments Date Erythromycin Unable to assess criticality skin rash 09/12/2022 Medications Active Medications SIG Qnty Indications Ordering Provider Date Qhtxgoqooacaw3or Tablets 1 tabs by mouth at 11pm 1tabs Eric Shah M.D. 12/01/2022 [id number] Capsules Take 1 Capsule By Mouth 2 Times A Day Terence Olvera MD Flcfdalaelbuczjrlu3p g TBPK follow package directions Unknown Vital Signs Date Vital Result Comment 12/01/2022 11:00am BP Systolic 130 mmHg BP Diastolic 70 mmHg Heart Rate 72 /min Height 64 inches 5'4 Weight 185.00 lb BMI (Body Mass Index) 31.8 kg/m2 Results Test Acquired Date Facility Test Result H/L Range N ote Laboratory test finding 01/20/2023 [facility] Cortisol 0.6 g /dL 1 Laboratory test finding 01/06/2023 [facility] Cortisol <pending> Laboratory test finding 01/05/2023 [facility] Cortisol 5.3 g /dL 2 Free T4 0.98 ng/dL (0.70-1.80 ) TSH 0.52 uIU/mL (0.4-4.2) Laboratory test finding 01/04/2023 [facility] Free T4 <pending> Laboratory test finding 01/04/2023 [facility] TSH <pending> 1 Reference Range: 6-10 am: 6.0-18.4 ug/dL 4-8 pm: 2.7-10.5 ug/dL 2 Reference Range: 6-10 am: 6.0-18.4 ug/dL 4-8 pm: 2.7-10.5 ug/dL Medical Devices Description No Information Available Encounters Type Date Location Provider Dx Diagnosis Office Visit 12/01/2022 10:45a Main Office Eric Shah M.D. 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 01/05/2023 E06.3 Autoimmune thyroiditis Eric Shah M.D. 01/04/2023 E06.3 Autoimmune thyroiditis Eric Shah M.D. 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 12/01/2022 R53.83 Fatigue Eric person M.D. 12/01/2022 E04.2 Multinodular goiter Eric Small M.D. 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
--- OUTSIDE RECORDS SUMMARY | 2025-01-13 11:14 | XMS_ITS | Clinical Summary ---
Author Organization [facility] Address [address] [place] [address] Care Team Providers Care Leaf Fat Scraper Name Role Phone Vee Allan MD Primary [...] age to complete this topic Care Teams Leaf Fat Scraper Relationship Specialty Start Date End Date Vee Allan MD PCP - General Internal Medicine 12/05/19
--- OUTSIDE RECORDS SUMMARY | 2025-01-13 11:16 | XMS_ITS | Data Portability ---
Author Organization [facility] Address [address] [place] [address] Care Team Providers Care Bed Rubber Name Role Phone [facility] Primary Care Provi ramses Assessment No assessment recorded. Plan of Treatment Reminders Order Date Submit Date Provider Last Modified By Organization Details Last Modified Time Details Appointments None recorded. Lab rapid strep group A, throat [email or web address] [facility], [address] [place] [address], [address], 3 19:09:54 streptococc us group A, culture, throat 2022 023 [email or web address] [facility], [address] [place] [address], [place], [address], 3 19:09:54 Referral emergency medicine referral - left lower facial weakness and numbness x 5 days [email or web address] Emergency Department, [address] [place], [address], 4 18:35:48 Procedures None recorded. Surgeries None recorded. Imaging None recorded. Medication Orders prednisone 20 mg tablet 2022 023 yestrella 5 [id number], [address] [place], [address], 4 16:05:23 benzonatate 200 mg capsule 2022 023 [email or web address] 5 [id number], [address] [place], [address], 16:05:13 Patient TargetsNo targets recorded. Patient Instructions Encounter Date Encounter Id Patient Instructions Last Modified By Organization Details Last Modified Time 12/17/2022 [id number] sore throat: car e instructions [email or web address] Not [...] care for yourself at home? Take an luro-lpe-zyzyttq pain medicine. Avoid Ibuprofen, Aleve and Aspirin if . If the doctor prescribed antibiotics, take them as directed. Do not stop taking them just because you feel better. You need to take the full course of antibiotics. Be careful when taking kjnu-ghn-xhyoigu cold or influenza (flu) medicines and Tylenol [...] congestion worse. Not available 12/17/2022 19:07:18 05/19/2024 [id number] head or face zehra n: care instructions [...] Range : Negat aashish Not Available [facility] ([facility]) [address] [facility] [place], [place], [address], 12/21/2022 06:07:48 12/17/1912/17/2022 rapid strep group A, throa t Unknown Analyte Normal = Negati ve Not Available [facility] [address] [place], [address], 12/17/2022 18:34:11 12/17/1912/17/2022 rapid strep group A, throa t Unknown Analyte negati ve Not Available [facility] [address] [place] [address], [phone], 12/17/2022 18:34:11 Result Notes None recorded. 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 0.5 PPD [email or web address] Information not available 12/17/2022 Do You Use Any Illicit Or Recreational Drugs? No [email or web address] Information not available 12/17/2022 Have You Recently Traveled Abroad? No [email or web address] Information not available 12/17/2022 Do You Or Have You Ever Used Any Other Forms Of Tobacco Or Nicotine? No [email or web address] Information not available 12/17/2022 Sex: Unknown Functional Status None recorded. Mental Status None recorded. Family History Relationship Description Onset Age of this Age Resolved Age Notes LastModified by Organization Details LastModified Time Unspecified Relation Disorder of thyroid gland [email or web address] Not available 2022 18:38:50 Medical History No [...] SNOMED-CT Code Diagnosis ICD10 Code Diagnosis Note [id number] [place] [address] [place] [address] 12/17/2022 17:31:11 12/17/2022 19:17:28 Sore throat 460187397 J02.9 [id number] [place] [address] [address] 05/19/2024 15:59:19 05/19/2024 16:21:39 Numbness of face 520797336 R20.0 ER now !!! Health Concerns Section [...] - DOS ON OR BEFORE 11/05/2023 - [facility] ([facility]) María Phillips [id number] María Phillips 05/19/2024 1 [facility] - DOS PRIOR TO 2024 (PPO) María Phillips [phone] HA María Phillips Notes Date Note Type [...] Narendra Diaz NP [address] [place], [address], [place] - [facility] 12/17/2022 19:11:14 4 text/html a couple of weeks. twitching in face. x5 days having facial pain. pain level is 5/10. feels slight numbness on left side of mouth. patient also notices lower facial weakness as well. no chest pain. has slight head ache Juan F Noe, DO [address] [place], [address], [place] - [facility] 05/19/2024 16:42:19 OBGyn Episode No OBEpisode recorded.
--- OUTSIDE RECORDS SUMMARY | 2025-01-13 11:16 | XMS_ITS | Patient Health Record ---
Author Organization [facility] Address [address] [place] [address] Care Team Providers Care Paper Sheeter Name Role Phone IKER ROBLERO [phone] ALLERGIES Allergen (clinical drug ingredient) Drug/Non Drug [...] Interpretation: Performing Lab: Notes/Report: Note See Note [facility], a member of [employer] Patient Name: MARÍA PHILLIPS Date of : 1965 Reason for Exam: OTHER Exam Date: 11/18/2024 [id number] EST Report Status: Final Ordering Provider: IKER [...] to the prior neck CTA. Telerad TL ([id number]) -------- FINAL REPOR T -------- Dictated By: Dayami Walker i Dictated Date: 11/19/2024 13:40 ET Assigned Physician: Dayami Diehl Reviewed and Electronically Signed By: Dayami Diehl Signed Date: 025 13:45 ET Workstation ID: [id number] Transcribed By: Self Edit Transcribed Date: 11/19/2024 [...] sample collected in 7-14 days is recommended. XR ESOPHAGRAM Reviewed date:01/01/2025 09:27:26 AM Interpretation: Performing Lab: Notes/Report: Note See Note [facility], a member of [employer] Patient Name: MARÍA PHILLIPS Date of : 1965 Reason for Exam: DYSPHAGIA Exam Date: 12/26/2024 [id number] EST Report Status: Final Ordering Provider: BARBARA MORRISSEY PCP: IKER ROBLERO FINDINGS: Double contrast esophagram performed. COMPARISON: Esophagr am March 04, 2022 HISTORY: Patient is a 59-year-old female with history of globus sensation. Epigastric pain. Marketing Operations Assistant radiographs: 1 view chest radiograph demonstrates cardiac and mediastinal contours within normal limits. 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 The lungs are clear bilaterally and the costophrenic angles are sharp. 1 view lateral soft tissue neck demonstrates no prevertebral soft tissue masses. Airway is widely patent. There are mild to moderate degenerative changes of cervical spine. Effervescent crystal s were administered orally. Thick and thin barium were administered orally under fluoroscopic control. Pharyngoesophagram: Rapid sequence imaging of the hypopharynx during swallowing demonstrates prompt initiation of swallowing. There is normal soft palate elevation. One episode of flash laryngeal penetration occurred, without julieta aspiration. There is no residual in the vallecula nor in the piriform sinuses. Thoracic esophagus: There is mild esophageal dysmotility as demonstrated by decreased efficacy in the primary peristaltic stripping wave. Normal distensibility and mucosal pattern without evidence of ulceration, stricture or mass formation. Hiatal hernia: None Reflux: Unable to elicit 13mm Barium pill: Swallowed without difficulty. Prompt passage of pill from the esophagus into the stomach. DAP: 4.89 Gycm^2 IMPRESSION: Mild esophageal motility. One episode of flash laryngeal penetration occurred. Otherwise, normal double contrast esophagram. -------- FINAL REPOR T -------- Dictated By: Lidia Escamilla Dictated Date: 12/26/2024 13:23 ET Assigned Physician: Mauro Wright Reviewed and Electronically Signed By: Mauro Wright Signed Date: 025 08:28 ET Workstation ID: [id number] Transcribed By: Self Edit Transcribed Date: 12/26/2024 13:36 ET Resident/PA/FIELD LOGISTICS COORDINATOR: Lidia Godinez XR SHOULDER 2+ VIEWS BILAT Reviewed date:01/08/2025 05:02:44 PM Interpretation: Performing Lab: Notes/Report: Note See Note [facility], a member of [employer] Patient Name: MARÍA PHILLIPS Date of : 1965 Reason for Exam: bilateral shoulder pain Exam Date: 01/08/2025 [id number] EST Report Status: Final Ordering Provider: CAMILO CARRILLO PCP: IKER ROBLERO Date of Visit: 01/08/2025 Reason for visit: Bilateral shoulder pain Views: AP, Grashey, Y, axillary bilateral shoulders Comparison: None Findings: Right shoulder narrowing of subacromial space. No proximal migration of the humeral head. There is a calcification adjacent greater tuberosity. Mild inferior glenohumeral arthritis noted. Left shoulder no significant arthriti s. No proximal migration of the humeral head. There is narrowing of subacromial space and calcification lateral to the greater tuberosity. Impression: Right shoulder mild glenohumeral arthritis. Calcification and narrowing of subacromial space. ibrinous base . Left shoulder calcific tendinitis and narrowing of subacromial space REASON FOR REFERRAL Reason [facility] Diagnosis 1 Shoulder pain, unspe cified chronicity, unspecified laterality (M25.519) Referral Organization [address] Referring Provider First Name IKER Referring Provider Last Name ANNIKA Referring Provider Speciality Preventive Medicine Referred Provider [facility] Notes Letitia Cox 025 10:47:57 AM > Referral faxed over to [facility] for Bilateral shoulder pain P. [phone] Referral Priority Routine MEDICATIONS Medication SIG (Take, Route, Fr equency, Duration) Notes Start Date End Date Status Ibuprofen 600 MG 1 tablet with food o r milk Orally Three times a day for 10 days 12/03/2024 Active LORazepam 1 MG TAKE 1 TABLET BY SUSAN 3 TIMES A DAY IF NEEDED FOR [...] Pain in right arm (M79.601) Active confirmed [id number] Problem Pain in left arm (M79.602) Active confirmed 051763833 Problem Annual physical exam (Z00.00) Active confirmed Annual health maintenance examination (38384155) Problem Vitamin D deficiency (E55.9) Active confirmed Vitamin D defic iency (55375940) Problem Tremor (R25.1) Active confirmed 0550896 4 Problem Diabetes mellitus screening (Z13.1) Active confirmed Diabetes mellit us screening (540785771) Problem Paresthesias (R20.2) Active confirmed 24029356 Problem Chest pain in adult (R07.9) Active confirmed Chest pain (83675350) Problem Depression with anxiety (F41.8) Active confirmed 250077563 Problem 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 46440520 Problem History of latent tuberculosis (Z86.15) Active confirmed 028751342 Problem History of recent fall (Z91.81) Active confirmed 418681757 Problem Screening for thyroid disorder (Z13.29) Active confirmed Thyroid disorde r screening (967324529) Problem Lipid screening (Z13.220) Active confirmed Lipid screening (870593287) Problem Rheumatoid arthritis involving multiple sites, unspecified whether rheumatoid factor present (M06.9) Active confirmed 336987731 Problem Rheumatoid arthritis involving multiple sites with positive rheumatoid factor (M05.79) Active confirmed 898412448 Problem Anxiety, generalized (F41.1) Active confirmed 74010142 Problem Arm paresthesia, left (R20.2) Active confirmed Skin sensation disturbance (03001632) Problem Cervical spondylosis (M47.812) Active confirmed 651959428 Problem Generalized weakness (R53.1) Active confirmed 96964135 Problem 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81 ; Rheumatoid arthritis involving multiple sites with positive rheumatoid factor M05.79 ; Slipped rib syndrome M94.0 and Depression with anxiety F41.8 [address] [address] 12/04/2024 IKER LEDESMAHAM Tremor R25.1 ; Cervical spondylosis M47.812 ; Rock's disease E06.3 ; Pain in right arm M79.601 ; Pain in left arm M79.602 ; History of recent fall Z91.81 ; Rheumatoid arthritis involving multiple sites with positive rheumatoid factor M05.79 ; Slipped rib syndrome M94.0 and Depression with anxiety F41.8 [address] [address] 10/28/2024 IKER LEDESMAHAM Rheumatoid arthritis involving multiple sites, unspecified whether rheumatoid factor present M06.9 ; Tremor R25.1 ; Slipped rib syndrome M94.0 ; History of latent tuberculosis Z86.15 ; Depression with anxiety F41.8 and Rock's disease E06.3 [address] [address] 11/18/2024 IKER LEDESMAHAM Tremor R25.1 ; Cervical spondylosis M47.812 ; Rock's disease E06.3 ; Pain in right arm M79.601 ; Pain in left arm M79.602 ; History of recent fall Z91.81 ; Rheumatoid arthritis involving multiple sites with positive rheumatoid factor M05.79 ; Slipped rib syndrome M94.0 and Depression with anxiety F41.8 [address] [address] 10/29/2024 [facility] [address] [facility] [address] [address] 11/04/[address] [facility] [address] [facility] [address] [address] 11/07/[address] [facility] [address] [facility] [address] [address] 11/19/2024 IKER COPAN [address] [facility] [address] [address] 12/03/[address] [place] [address] 12/13/[address] [place] [address] 12/13/2024 IKER LEDESMAHAM Generalized weakness R53.1 and Paresthesias R20.[address] [place] [address] 12/16/[address] [place] [address] 12/26/[address] [place] [address] 12/31/[address] [facility] [address] [place] [address] 01/02/2025 [facility] [address] [place] [address] 01/07/2025 [facility] [address] [place] [address] 12/09/2024 [facility] [address] [place] [address] 12/13/2024 [facility] [address] [place] [address] 12/14/2024 [facility] [address] [place] [address] 12/14/2024 [facility] [address] [place] [address] 12/15/2024 [facility] [address] [place] [address] 12/18/2024 [facility] [address] [place] [address] 01/01/2025 IKER COPAN ASSESSMENTS Encounter Date Diagnosis Assessment Notes Treatment [...] Patient reports history of RA. Follows with generator repairer Dr. Clark out of [place]. Has been treated previously with Humira, Enbrel, [...] was diagnosed by Dr. Dubon out of [place], [place]. Taking methocarbamol 750 mg 3 times [...] reviewed. Dictation completed with the use of [employer] ([employer]) voice recognition software, prone to medical misidentification [...] Patient reports history of RA. Follows with generator repairer Dr. Clark out of [place]. Has been treated previously with Humira, Enbrel, [...] was diagnosed by Dr. Dubon out of [place], [place]. Taking methocarbamol 750 mg 3 times [...] reviewed. Dictation completed with the use of [employer] ([employer]) voice recognition software, prone to medical misidentification [...] for 11/20/2024. #Recent fall: Patient seen at [facility] ED 11/02/2024 s/p fall at work. [...] diffuse joint pain and fatigue. Follows with generator repairer Dr. Clark out of [place], records requested and not yet available for my review. 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 States this was diagnosed by Dr. Dubon out of [place], [place]. Taking methocarbamol 750 mg 3 times [...] reviewed. Dictation completed with the use of [employer] ([employer]) voice recognition software, prone to medical misidentification [...] for 11/20/2024. #Recent fall: Patient seen at [facility] ED 11/02/2024 s/p fall at work. [...] diffuse joint pain and fatigue. Follows with generator repairer Dr. Clark out of [place], records requested and not yet available for my review. 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 States this was diagnosed by Dr. Dubon out of [place], [place]. Taking methocarbamol 750 mg 3 times [...] reviewed. Dictation completed with the use of [employer]AK ([employer]) voice recognition software, prone to medical misidentification [...] for 11/20/2024. #Recent fall: Patient seen at [facility] ED 11/02/2024 s/p fall at work. [...] diffuse joint pain and fatigue. Follows with generator repairer Dr. Clark out of [place], records requested and not yet available for my review. 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 States this was diagnosed by Dr. Dubon out of [place], [place]. Taking methocarbamol 750 mg 3 times [...] reviewed. Dictation completed with the use of SOAK ([employer]) voice recognition software, prone to medical misidentification [...] for 11/20/2024. #Recent fall: Patient seen at [facility] ED 11/02/2024 s/p fall at work. [...] diffuse joint pain and fatigue. Follows with generator repairer Dr. Clark out of [place], records requested and not yet available for my review. 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 States this was diagnosed by Dr. Dubon out of [place], [place]. Taking methocarbamol 750 mg 3 times [...] reviewed. Dictation completed with the use of [employer]AK ([employer]) voice recognition software, prone to medical misidentification [...] for 11/20/2024. #Recent fall: Patient seen at [facility] ED 11/02/2024 s/p fall at work. [...] diffuse joint pain and fatigue. Follows with generator repairer Dr. Clark out of [place], records requested and not yet available for my review. 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 States this was diagnosed by Dr. Dubon out of [place], [place]. Taking methocarbamol 750 mg 3 times [...] reviewed. Dictation completed with the use of SOAK ([employer]) voice recognition software, prone to medical misidentification [...] Patient reports history of RA. Follows with generator repairer Dr. Clark out of [place]. Has been treated previously with Humira, Enbrel, [...] was diagnosed by Dr. Dubon out of [place]. Taking methocarbamol 750 mg 3 times [...] reviewed. Dictation completed with the use of [employer]AK ([employer]) voice recognition software, prone to medical misidentification [...] for 11/20/2024. #Recent fall: Patient seen at [facility] ED 11/02/2024 s/p fall at work. [...] diffuse joint pain and fatigue. Follows with generator repairer Dr. Clark out of [place], records requested and not yet available for my review. 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 States this was diagnosed by Dr. Dubon out of [place]. Taking methocarbamol 750 mg 3 times [...] reviewed. Dictation completed with the use of SOAK ([employer]) voice recognition software, prone to medical misidentification [...] for 11/20/2024. #Recent fall: Patient seen at [facility] ED 11/02/2024 s/p fall at work. [...] diffuse joint pain and fatigue. Follows with generator repairer Dr. Clark out of [place], records requested and not yet available for my review. 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 States this was diagnosed by Dr. Dubon out of [place]. Taking methocarbamol 750 mg 3 times [...] reviewed. Dictation completed with the use of SOAK ([employer]) voice recognition software, prone to medical misidentification [...] Patient reports history of RA. Follows with generator repairer Dr. Clark out of [place]. Has been treated previously with Humira, Enbrel, [...] was diagnosed by Dr. Dubon out of [place]. Taking methocarbamol 750 mg 3 times [...] reviewed. Dictation completed with the use of SOAK ([employer]) voice recognition software, prone to medical misidentification [...] for 11/20/2024. #Recent fall: Patient seen at [facility] ED 11/02/2024 s/p fall at work. [...] diffuse joint pain and fatigue. Follows with generator repairer Dr. Clark out of [place], records requested and not yet available for my review. 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 States this was diagnosed by Dr. Dubon out of [place]. Taking methocarbamol 750 mg 3 times [...] reviewed. Dictation completed with the use of SOAK ([employer]) voice recognition software, prone to medical misidentification [...] for 11/20/2024. #Recent fall: Patient seen at [facility] ED 11/02/2024 s/p fall at work. [...] diffuse joint pain and fatigue. Follows with generator repairer Dr. Clark out of [place], records requested and not yet available for my review. 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 States this was diagnosed by Dr. Dubon out of [place]. Taking methocarbamol 750 mg 3 times [...] reviewed. Dictation completed with the use of SOAK ([employer]) voice recognition software, prone to medical misidentification [...] Patient reports history of RA. Follows with generator repairer Dr. Clark out of [place]. Has been treated previously with Humira, Enbrel, [...] was diagnosed by Dr. Dubon out of [place]. Taking methocarbamol 750 mg 3 times [...] reviewed. Dictation completed with the use of SOAK ([employer]) voice recognition software, prone to medical misidentification [...] for 11/20/2024. #Recent fall: Patient seen at [facility] ED 11/02/2024 s/p fall at work. [...] diffuse joint pain and fatigue. Follows with generator repairer Dr. Clark out of [place], records requested and not yet available for my review. 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 States this was diagnosed by Dr. Dubon out of [place]. Taking methocarbamol 750 mg 3 times [...] reviewed. Dictation completed with the use of SOAK ([employer]) voice recognition software, prone to medical misidentification [...] Patient reports history of RA. Follows with generator repairer Dr. Clark out of [place]. Has been treated previously with Humira, Enbrel, [...] was diagnosed by Dr. Dubon out of [place]. Taking methocarbamol 750 mg 3 times [...] reviewed. Dictation completed with the use of SOAK ([employer]) voice recognition software, prone to medical misidentification [...] for 11/20/2024. #Recent fall: Patient seen at [facility] ED 11/02/2024 s/p fall at work. [...] diffuse joint pain and fatigue. Follows with generator repairer Dr. Clark out of [place], records requested and not yet available for my review. 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 States this was diagnosed by Dr. Dubon out of [place]. Taking methocarbamol 750 mg 3 times [...] reviewed. Dictation completed with the use of SOAK ([employer]) voice recognition software, prone to medical misidentification [...] for 11/20/2024. #Recent fall: Patient seen at [facility] ED 11/02/2024 s/p fall at work. [...] diffuse joint pain and fatigue. Follows with generator repairer Dr. Clark out of [place], records requested and not yet available for my review. 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 States this was diagnosed by Dr. Dubon out of [place]. Taking methocarbamol 750 mg 3 times [...] reviewed. Dictation completed with the use of SOAK ([employer]) voice recognition software, prone to medical misidentification [...] for 11/20/2024. #Recent fall: Patient seen at [facility] ED 11/02/2024 s/p fall at work. [...] diffuse joint pain and fatigue. Follows with generator repairer Dr. Clark out of [place], records requested and not yet available for my review. 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 States this was diagnosed by Dr. Dubon out of [place]. Taking methocarbamol 750 mg 3 times [...] reviewed. Dictation completed with the use of SOAK ([employer]) voice recognition software, prone to medical misidentification [...] for 11/20/2024. #Recent fall: Patient seen at [facility] ED 11/02/2024 s/p fall at work. [...] diffuse joint pain and fatigue. Follows with generator repairer Dr. Clark out of [place], records requested and not yet available for my review. 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 States this was diagnosed by Dr. Dubon out of [place]. Taking methocarbamol 750 mg 3 times [...] reviewed. Dictation completed with the use of SOAK ([employer]) voice recognition software, prone to medical misidentification [...] for 11/20/2024. #Recent fall: Patient seen at [facility] ED 11/02/2024 s/p fall at work. [...] diffuse joint pain and fatigue. Follows with generator repairer Dr. Clark out of [place], records requested and not yet available for my review. 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 States this was diagnosed by Dr. Dubon out of [place]. Taking methocarbamol 750 mg 3 times [...] reviewed. Dictation completed with the use of SOAK ([employer]) voice recognition software, prone to medical misidentification [...] for 11/20/2024. #Recent fall: Patient seen at [facility] ED 11/02/2024 s/p fall at work. [...] diffuse joint pain and fatigue. Follows with generator repairer Dr. Clark out of [place], records requested and not yet available for my review. 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 States this was diagnosed by Dr. Dubon out of [place], [place]. Taking methocarbamol 750 mg 3 times [...] reviewed. Dictation completed with the use of SOAK ([employer] tool[employer]) voice recognition software, prone to medical misidentification [...] for 11/20/2024. #Recent fall: Patient seen at [facility] ED 11/02/2024 s/p fall at work. [...] diffuse joint pain and fatigue. Follows with generator repairer Dr. Clark out of [place], records requested and not yet available for my review. 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 States this was diagnosed by Dr. Dubon out of [place], [place]. Taking methocarbamol 750 mg 3 times [...] reviewed. Dictation completed with the use of SOAK ([employer] tool[employer]) voice recognition software, prone to medical misidentification [...] for 11/20/2024. #Recent fall: Patient seen at [facility] ED 11/02/2024 s/p fall at work. [...] diffuse joint pain and fatigue. Follows with generator repairer Dr. Clark out of [place], records requested and not yet available for my review. 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 States this was diagnosed by Dr. Dubon out of [place], [place]. Taking methocarbamol 750 mg 3 times [...] reviewed. Dictation completed with the use of SOAK ([employer]) voice recognition software, prone to medical misidentification [...] Min 4 Views 11/18/2024 Comp. Metabolic Panel [id number] Anti-Mi-2 Ab (RDL)-[id number] 12/13/2024 Anti-Ro (SS-A) Ab (RDL)-[id number] Anti-La (SS-B) Ab (RDL)-[id number] 5 CREATINE KINASE AND CKMB 12/13/2024 Insurance Providers Payer Name Payer Address Payer Phone Subscriber Number Group Number Insured Name Patient Relationship to Insured Coverage Start Date Coverage End Date [facility] [address] [place] [phone] [id number] María Phillips Self - patient is the insured 2020 MEDICAL (GENERAL) HISTORY Surgical History Surgery Date(Month/Year) ventral hernia repair 2017 cholecystectomy 1999 left ACL repair 1997 Right carpal tunnel release 2019 bilateral strabismus correction 1973
--- OUTSIDE RECORDS SUMMARY | 2025-01-13 11:16 | XMS_ITS | Encounter Summary ---
Author Organization [facility] Address [address] [place] [address] Care Team Providers Care Patient Registration Specialist Name Role Phone Araceli Augustin Primary Care Provider + Reason for Referral * Imaging (Routine) - Pending Review Specialty Diagnoses / Procedures Referred By Corine strange Referred To Contact Radiology Diagnoses Dysphagia, unspecified Procedures XR Esophagram Sherrie Mahoney MD [address] [place] [address] [place] [address] Phone: tel: fax: [facility] Referral ID Status Reason Start Date Expiration Date V isits Requested Visits Authorized [id number] Pending Review 12/16/2024 12/16/2025 1 1 Reason for Visit * Imaging (Routine) - Pending Review Specialty Diagnoses / Procedures Referred By Cornie strange Referred To Contact Radiology Diagnoses Dysphagia, unspecified Procedures XR Esophagram Sherrie Mahoney MD [address] [place] [address] Rd [address] [place] [address] Phone: tel: fax: [facility] Referral ID Status Reason Start Date Expiration Date V isits Requested Visits Authorized [id number] Pending Review 12/16/2024 12/16/2025 1 1 Encounter Details Date Type Department Care Team (Latest Contact Info) Description 12/26/2024 8:11 AM EST - 12/26/2024 11:59 PM EST Hospital Encounter [facility] Xray [address] [place] [address] Dysphagia, unspecified Discharge Disposition: Home or Self Care Social [...] Tracee Cassidy RN documented in this encounter Medications at Time of Discharge acetaminophen (TYLENOL) 325 mg tablet 12/17/2024 ascorbic acid (VITAMIN C) 250 mg tablet [...] mouth. docusate sodium (COLACE) 100 mg capsule 12/17/2024 estradioL (VIVELLE-DOT) 0.0375 mg/[address] 1 patch on the skin 2 (two) times a week. 12/09/2024 gabapentin (NEURONTIN) 300 mg capsule 12/17/2024 ibuprofen (ADVIL,MOTRIN) 600 mg tablet 12/17/2024 LORazepam (ATIVAN) 1 mg tablet TAKE 1 [...] oxyCODONE (ROXICODONE) 5 mg immediate release tablet 12/17/2024 progesterone (PROMETRIUM) 100 mg capsule TAKE 1 CAPSULE BY MOUTH EVERY DAY AT BEDTIME FOR 90 DAYS 12/09/2024 sucralfate (CARAFATE) 1 gram tablet Take 1 tablet (1 g total) by mouth 4 (four) times a day. Take 1 hour before meals and at bedtime 120 each 11 11/20/2024 11/20/2025 traZODone (DESYREL) 50 mg tablet TAKE ONE TAB NIGHTLY NEEDED FOR SLEEP. 12/10/2024 documented as of this encounter Discharge Disposition Disposition Code Departure Means Destination Home or Self Care documented in this encounter Plan of Treatment Upcoming Encounters Date Type Department Care Team (Late st Contact Info) Description 01/22/2025 8:00 AM EDT Office Visit Orthopedic Surgery - [place] [address] [phone] Von Mcclure MD [address] [address] 01/28/2025 9:15 AM EDT Office Visit Endocrinology - [place] [address] [place], [place] [phone] Lee Garcia MD [address] [place] [phone] documented as of this encounter Procedures Procedure Name Priority Date/Time Associated Diagnosis Comments XR ESOPHAGRAM Routine 12/26/2024 8:52 AM EST Dysphagia, unspecified documented in this encounter Results * XR Esophagram (12/26/2024 8:52 AM EST) Anatomical Region Laterality Modality Head and Neck Radiographic Krystyna ging 12/26/2024 1:23 PM EST Impressions 12/27/2024 8:28 AM EST Mild esophageal motility. One episode of flash laryngeal penetration occurred. Otherwise, normal double contrast esophagram. -------- FINAL REPORT -------- Dictated By: Lidia Escamilla Dictated Date: 12/26/2024 13:23 ET Assigned Physician: Mauro Wright Reviewed and Electronically Signed By: Mauro Wright Signed Date: 12/27/2024 08:28 ET Workstation ID: [id number] Transcribed By: Self Edit Transcribed Date: 12/26/2024 13:36 ET Resident/PA/LOG ROLLER: Lidia Escamilla Narrative 12/27/2024 8:28 AM EST FINDINGS: Double contrast esophagram performed. COMPARISON: Esophagram March 04, 2022 HISTORY: Patient is a 59-year-old female with history of globus sensation. Epigastric pain. Search Marketing Analyst radiographs: 1 view chest radiograph demonstrates cardiac and mediastinal contours within normal limits. 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 The lungs are clear bilaterally and the costophrenic angles are sharp. 1 view lateral soft tissue neck demonstrates no prevertebral soft tissue masses. Airway is widely patent. There are mild to moderate degenerative changes of cervical spine. Effervescent crystals were administered orally. Thick and thin barium [...] esophagus into the stomach. DAP: 4.89 Gycm^2 Procedure Note Mauro Wright MD - 12/27/2024 FINDINGS: Double contrast esophagram performed. COMPARISON: Esophagram March 04, 2022 HISTORY: Patient is a 59-year-old female with history of globus sensation.Epigastric pain. Search Marketing Analyst radiographs: 1 view chest radiograph demonstrates cardiac andmediastinal contours within normal limits. There is osteoarthritis of theshoulders bilaterally. The lungs are clear bilaterally and thecostophrenic angles are sharp. 1 view lateral soft tissue neckdemonstrates no prevertebral soft tissue masses. Airway is widely patent.There are mild to moderate degenerative changes of cervical spine. Effervescent crystals were administered orally. Thick and thin barium wereadministered orally under fluoroscopic control. Pharyngoesophagram: Rapid sequence imaging of the hypopharynx duringswallowing demonstrates prompt initiation of swallowing. There is normalsoft palate elevation. One episode of flash laryngeal penetrationoccurred, without julieta aspiration. There is no residual in the valleculanor in the piriform sinuses. Thoracic esophagus: There is mild esophageal dysmotility as demonstratedby decreased efficacy in the primary peristaltic stripping wave. Normaldistensibility and mucosal pattern without evidence of ulceration,stricture or mass formation. Hiatal hernia: None Reflux: Unable to elicit 13mm Barium pill: Swallowed without difficulty. Prompt passage of pillfrom the esophagus into the stomach. DAP: 4.89 Gycm^2 IMPRESSION: Mild esophageal motility. One episode of flash laryngeal penetrationoccurred. Otherwise, normal double contrast esophagram. -------- FINAL REPORT -------- Dictated By: Lidia Escamilla Dictated Date: 12/26/2024 13:23 ET Assigned Physician: Mauro Wright Reviewed and Electronically Signed By: Mauro Wright Signed Date: 12/27/2024 08:28 ET Workstation ID: [id number] Transcribed By: Self Edit Transcribed Date: 12/26/2024 13:36 ET Resident/PA/LOG ROLLER: Lidia Escamilla us Sherrie Mahoney MD IMG FLUOROSCOPY PROCEDURES F inal Result documented in this encounter Visit Diagnoses Diagnosis Dysphagia, unspecified documented in this encounter Administered Medications Inactive Administered Medications - up to 3 most recent administrations Medication Order MAR Action Action Date Dose Rate Site barium sulfate (E-Z-DISK) tablet 700 mg 700 mg, oral, Once in imaging, Starting on [facility] 12/26/24 at 0852, For 1 dose, Swallow whole with 1-2 swallows of water just prior to fluoroscopic examination. Given 12/26/2024 8:54 AM EST 700 mg barium sulfate (E-Z-HD) 98 % suspension 65 mL 65 mL, oral, Once in imaging, Starting on [facility]ie 12/26/24 at 0852, For 1 dose Given 12/26/2024 8:53 AM EST 65 mL barium sulfate (E-Z-PAQUE) 96 % (w/w) suspension 90 mL 90 mL, oral, Once in imaging, Starting on [facility] 12/26/24 at 0852, For 1 dose Given 12/26/2024 8:54 AM EST 90 mL sod bicarb-citric ac-simeth 2.21-1.53 gram/4 gram packet 1 packet 1 packet, oral, Once, On Bessie 12/26/24 at 0915, For 1 dose, Dissolve the contents of a half of a packet on the back of the tongue, wash down with 15 mL of water or juice and repeat with remaining contents. Given 12/26/2024 8:53 AM EST 1 packet documented in this encounter Care Teams Patient Registration Specialist Relationship Specialty Start Date End Date Araceli Augustin PA [address] [place] [phone] PCP - General 11/20/24 documented as of this encounter
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
--- OUTSIDE RECORDS SUMMARY | 2025-01-13 11:16 | XMS_ITS ---
Author Organization [facility] Address [address] [place] [phone] Care Team Providers Care Sales Architect Name Role Phone LINDA KHAN Primary Care Provider [phone] REASON FOR VISIT Transferring out Encounters Encounter Location Date Provider Diagnosis [facility] [address] [address] 10/31/2024 LINDA KHAN Plan Of Treatment No Information Progress Notes * MIS OLSONOB:1965 (59 yo F)Acc No.[id number]:10/31/2024 Patient:?MARCUS OLSON :1965???Age:59 Y???Sex:Female Address:[address] [place] [address] * true * Date:? Generated for Renay bear/Hilton/eTransmitting on:?01/13/2025 11:16 AM EDT
--- OUTSIDE RECORDS SUMMARY | 2025-01-13 11:17 | XMS_ITS ---
Author Organization [facility] Address [address] [place] [address] Care Team Providers Care Roll Tender Name Role Phone IKER ROBLERO Unavailable [phone] REASON FOR VISIT RE:Referral request Encounters Encounter Location Date Provider Diagnosis [address] [place] [phone] 01/01/2025 IKER ROBLERO PLAN OF TREATMENT No Information Progress Notes * David OLSONOB:1965 (59 yo F)Acc No.[id number]:01/01/2025 Patient:??María OLSON :1965?Age:59 Y?Sex:Fe male Address:[address], [place] [address] * true * Date:??
--- OUTSIDE RECORDS SUMMARY | 2025-01-13 11:17 | XMS_ITS ---
Author Organization [facility] Address [address] [address] Care Team Providers Care Hospital Account Manager Name Role Phone LINDA KHAN Primary Care Provider [phone] Hugo Plata Unavailable [phone] REASON FOR VISIT Diagnosis Encounters Encounter Location Date Provider Diagnosis [facility] 294 [facility] [address] [place] [address] 10/24/2024 Hugo Plata Plan Of Treatment No Information Progress Notes * MIS OLSONOB:1965 (59 yo F)Acc No.[id number]:10/24/2024 Patient:?WHITNEY MARCUS :1965???Age:59 Y???Sex:Female Address:[address] [place] [address] * true * Date:? Generated for Renay bear/Hilton/eTransmitting on:?01/13/2025 11:16 AM EDT
--- OUTSIDE RECORDS SUMMARY | 2025-01-13 11:17 | XMS_ITS | Clinical Summary ---
Author Organization [facility] Address [address] [place] [address] Phone Care Team Providers Care Title Insurance Examiner Name Role Phone Araceli Augustin Primary Care [...] mouth 1 (one) time each day. 05/14/2024 Active cholecalciferol (VITAMIN D-3) 25 mcg (1,000 unit) [...] and at bedtime 120 each 11 11/20/2024 11/20/19 26 Active traZODone (DESYREL) 50 mg tablet TAKE ONE TAB NIGHTLY NEEDED FOR SLEEP. 12/10/2024 Active progesterone (PROMETRIUM) 100 mg capsule TAKE 1 CAPSULE BY MOUTH EVERY DAY AT BEDTIME FOR 90 DAYS 12/09/2024 Active oxyCODONE (ROXICODONE) 5 mg immediate release tablet 12/17/2024 Acti ve ibuprofen (ADVIL,MOTRIN) 600 mg tablet 12/17/2024 Activ e gabapentin (NEURONTIN) 300 mg capsule 12/17/2024 Active estradioL (VIVELLE-DOT) 0.0375 mg/[address] 1 patch on the skin 2 (two) times a week. 12/09/2024 Active acetaminophen (TYLENOL) 325 mg tablet 12/17/2024 Active docusate sodium (COLACE) 100 mg capsule 12/17/2024 Active traMADoL (ULTRAM) 50 mg tablet Take 1 tablet (50 mg total) by mouth every 6 (six) hours if needed for severe pain for up to 3 days. Max Daily Amount: 200 mg 5 tablet 12/14/2024 12/17/19 25 Active Problems Problem Noted Date Diagnosed Date Acute bilateral low [facility] Assessment & Plan (01/02/2025 5:46 PM EST): Ms. Phillips describes increasing issues with her lower back and legs. The lumbar CT from [facility] show degenerative disc disease but not stenosis. Her description of paresthesias and leg shaking raise concerns for stenosis. Her workup at the [facility] did not correlate with cauda equina syndrome. She is now awaiting a lumbar spine MRI at [place]. I be happy to review that once it is available and follow-up with her if there are any recommendations. Cervical spondylosis 11/05/2024 Assessment & Plan (01/02/2025 5:44 PM EST): I reviewed the cervical spine x-rays in [...] if she would like to pursue that. Assessment & Plan (11/07/2024 9:55 AM EST): Patient states symptoms started about 2 months ago with twitching in her right elbow area and over time has progressed to shaking in both arms. She notes numbness in the right hand, history of right carpal tunnel release 2019. She also experiences pain in the forearms [...] this, is currently seeing 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 [place] at [facility], had injection in the right lower [...] Encounters Date Type Department Care Team Description 01/08/2025 9:00 AM EST Consult Orthopedic Surgery - [address] [place] [address] Nichelle Archibald PA Arthritis of right shoulder region (Primary Dx); Pain in unspecified shoulder; Calcific tendinitis of both shoulders 01/08/[address] [phone] Peggy Leon MD Advice Only (Epidural opinion) 01/03/[address] [phone] Chris [facility] [place] 12/27/2024 3:00 PM EST Office Visit [address] [phone] Peggy Leon MD Cervical spondylosis (Primary Dx); Acute bilateral low back pain with bilateral sciatica 12/26/2024 8:11 AM EST - 12/26/2024 11:59 PM EST Hospital Encounter [facility] Xray [address] [place] [address] Dysphagia, unspecified Discharge Disposition: Home or Self Care 12/16/[address] [phone] Chris [place], [place] 12/14/2024 2:01 PM EST - 12/14/2024 9:20 PM EST Emergency [facility] Emergency [address] [place] [address] Acute bilateral low back pain, unspecified whether sciatica present (Primary Dx); Tingling in extremities Discharge Disposition: Home or Self Care 12/05/2024 2:30 PM EST - 12/05/2024 9:23 PM EST Emergency [facility] Emergency [address] [place] [phone] Pain of right hip (Primary Dx) Discharge Disposition: Home or Self Care 11/27/2024 Telephone Orthopedic Surgery [facility] [address] [phone] Nichelle Archibald PA Arm Pain 11/20/2024 8:40 AM EST Office Visit Gastroenterology [facility] [address] [facility] [address] [phone] Rajan Sanders PA Slipped rib syndrome (Primary Dx); Right flank pain; Globus sensation; Epigastric pain; Passage of loose stools 11/20/2024 Telephone Gastroenterology [facility] [address] [facility] [address] [phone] Rajan Sanders PA 11/20/2024 Telephone Gastroenterology [facility] [address] [facility] [address] [phone] Rajan Sanders PA Medication Problem 11/20/2024 Telephone Gastroenterology [facility] [address] [phone] Rajan Sanders PA 11/20/2024 Telephone Gastroenterology [facility] [address] [facility] [address] [phone] Rajan Sanders PA Prior Authorization 11/19/2024 Telephone Neurosurgery [place] [facility] [address] [phone] Vanesa Lebron PA 11/18/2024 12:22 PM EST - 11/18/2024 11:59 PM EST Hospital Encounter [facility] Neurodiagnostic [address] [place] [address] Paresthesias in right hand; Neck pain Discharge Disposition: Home or Self Care 11/18/2024 12:22 PM EST - 11/18/2024 11:59 PM EST Hospital Encounter [facility] Xray [address] [place] [phone] Chest pain, unspecified; Pain in right arm; Paresthesia of skin Discharge Disposition: Home or Self Care 11/18/2024 Telephone Orthopedic Surgery [facility] 250 175 [facility] [address] [place] [phone] Nichelle Archibald PA 11/11/2024 10:45 AM EST Office Visit Orthopedic [facility] 175 [facility] [address] [place] [phone] Nichelle Archibald PA Pain in both upper extremities (Primary Dx) 11/05/2024 2:30 PM EST Consult Neurosurgery [place] [facility] 175 [facility] [address] [place] [phone] Vanesa Lebron PA Cervical spondylosis (Primary Dx); Paresthesias in right hand 10/26/2024 7:56 AM EST - 10/26/2024 2:26 PM EST Emergency [facility] Emergency [address] [place] [phone] Axel Wiley MD Tremors of nervous system (Primary Dx) Discharge Disposition: Home or Self Care 10/25/2024 Telephone [place] [address] [place] [phone] Lee Garcia MD lab work from Last 3 Months Immunizations Name Administration Dates Next Due Hepatitis B (Cvzuojv-T-Zzyqr , Recombivax HB-Adult) 19yo and older 02/21/2022,01/17/2022 [...] tissue CARPAL TUNNEL RELEASE 01/20/2020 Right PROCEDURE: ID NEUROPLASTY &/TRANSPOS MEDIAN NRV CARPAL TUNNE COLONOSCOPY OTHER SURGICAL HISTORY 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 uDbon in [facility] Medical History Medical History Date Comments [...] not to disclose 2024 8:12 AM EST Obstetrics History Last Filed Vital Signs Vital [...] AM EDT Office Visit Orthopedic Surgery - [place] [phone] [phone] Von Mcclure MD [address] [address] 01/28/2025 9:15 AM EDT Office Visit Endocrinology [place] [address] [place] [phone] Lee Garcia MD [address] [place] [phone] Health Maintenance Due Date Last Done Comments [...] Name Priority Date/Time Associated Diagnosis Comments XR SHOULDER 2+ VIEWS BILAT Routine 01/08/2025 9:31 AM EST Pain in unspecified shoulder XR ESOPHAGRAM Routine 12/26/2024 8:52 AM EST Dysphagia, unspecified XR LUMBAR SPINE 2-3 VIEWS STAT 12/14/2024 [...] 10/26/2024 7:05 AM EST ECG ANNOTATED 10/26/2024 HM HEPATITIS C SCREENING Routine 05/20/2024 HM HIV SCREENING Routine 05/20/2024 HM COLONOSCOPY Routine 08/15/2023 HM HPV Routine 07/20/2023 [facility] SCREENING DIGITAL Routine 06/05/2023 4:45 PM EDT Encounter for screening mammogram for malignant neoplasm of breast from Last 3 Months or Most Recently Relevant to Health Maintenance Results * XR Shoulder 2+ Views bilat [...] XR PROCEDURES Final Resul t * XR Esophagram (12/26/2024 8:52 AM EST) [...] Signed Date: 12/27/2024 08:28 ET Workstation ID: [id number] Transcribed By: Self Edit Transcribed Date: 12/26/2024 13:36 ET Resident/PA/HOG ROOM SUPERVISOR: Lidia Escamilla Narrative 12/27/2024 8:28 AM EST FINDINGS: Double contrast esophagram performed. COMPARISON: Esophagram March 04, 2022 HISTORY: Patient is a 59-year-old female with history of globus sensation. Epigastric pain. Fire Control Mechanic radiographs: 1 view chest radiograph demonstrates cardiac [...] female with history of globus sensation.Epigastric pain. Fire Control Mechanic radiographs: 1 view chest radiograph demonstrates cardiac [...] Signed Date: 12/27/2024 08:28 ET Workstation ID: [id number] Transcribed By: Self Edit Transcribed Date: 12/26/2024 13:36 ET Resident/PA/HOG ROOM SUPERVISOR: Lidia Escamilla Sherrie Mahoney MD IMG FLUOROSCOPY PROCEDURES F inal Result * XR Lumbar Spine 2-3 Views (12/14/2024 [...] Signed Date: 12/15/2024 07:42 ET Workstation ID: [id number] Transcribed By: Self Edit Transcribed Date: 12/15/2024 [...] Signed Date: 12/15/2024 07:42 ET Workstation ID: [id number] Transcribed By: Self Edit Transcribed Date: 12/15/2024 07:40 ET Dwight BOOTHE IMG XR PROCEDURES Final Result * Urinalysis with reflex microscopic and culture (12/14/2024 5:16 PM EST) Only the most recent of2 resultswithin the time period is included. Specific [place] Urine 1.012 1.003 - 1.030 LAB URINALYSIS - AUTOMATED METHOD 12/14/2024 6:08 PM EST [facility] pH, Urine 7.5 5.0 - 8.0 pH LAB URINALYSIS - AUTOMATED METHOD 12/14/2024 6:08 PM [facility] Leukocytes, Urine Negative Negative LAB URINALYSIS - AUTOMATED METHOD 12/14/2024 6:08 PM [facility] Nitrite, Urine Negative Negative LAB URINALYSIS - AUTOMATED METHOD 12/14/2024 6:08 PM [facility] Protein, Urine Negative <=Trace mg/dL LAB URINALYSIS - AUTOMATED METHOD 12/14/2024 6:08 PM [facility] Glucose, Urine Negative Negative mg/dL LAB URINALYSIS - AUTOMATED METHOD 12/14/2024 6:08 PM [facility] Ketones, Urine Negative Negative mg/dL LAB URINALYSIS - AUTOMATED METHOD 12/14/2024 6:08 PM [facility] Urobilinogen, Urine 0.2 0.2 - 1.0 mg/dL LAB URINALYSIS - AUTOMATED METHOD 12/14/2024 6:08 PM [facility] Bilirubin, Urine Negative Negative LAB URINALYSIS - AUTOMATED METHOD 12/14/2024 6:08 PM [facility] Blood, Urine Negative Negative LAB URINALYSIS - AUTOMATED METHOD 12/14/2024 6:08 PM [facility] Urine Urine specimen obtained by clean catch procedure / Unknown Non-blood Collection / Unknown 12/14/2024 5:16 PM EST 12/14/2024 5:38 PM EST us Dwight BOOTHE LAB URINE ORDERABLES Final Resul t [facility] [address] [place] [address], * [place] urine culture tube (12/14/2024 5:16 PM EST) Only the most recent of2 resultswithin the time period is included. Extra Tube Hold for add-ons. 12/14/2024 7:02 PM [facility] Comment:Auto resulted. Urine Urine specimen obtained by clean catch procedure / Unknown Non-blood Collection / Unknown 12/14/2024 5:16 PM EST 12/14/2024 5:38 PM EST us Dwight Barahona TL LAB URINE ORDERABLES Final [facility]ul t [facility] [address] [place] [address], * CT Head wo Contrast (12/14/2024 4:54 [...] by: Olga Jauregui MD on 12/14/2024 17:57:[address] PROCEDURES Final Result * ECG 12 lead (12/14/2024 4:37 PM EST) Only the most recent of2 resultswithin the time period is included. Pathologist [facility] Ventricular Rate ECG 67 BPM GEMUSE Atrial Rate 67 BPM GEMUSE P-R Interval 162 ms GEMUSE QRS Duration 64 ms GEMUSE Q-T Interval 422 ms GEMUSE QTc 445 ms GEMUSE P Wave [place] 40 degrees GEMUSE R [place] 6 degrees GEMUSE T [place] 26 degrees GEMUSE ECG Interpretation Normal sinus [...] of2 resultswithin the time period is included. [facility] Adenovirus Detection by PCR Not Detected Not Detected LAB MICROBIOLOGY METHOD 12/14/2024 5:56 PM EST [facility] Influenza A PCR Not Detected Not Detected LAB MICROBIOLOGY METHOD 12/14/2024 5:56 PM EST [facility] Influenza B PCR Not Detected Not Detected LAB MICROBIOLOGY METHOD 12/14/2024 5:56 PM EST [facility] Coronavirus 229E Not Detected Not Detected LAB MICROBIOLOGY METHOD 12/14/2024 5:56 PM [facility] Coronavirus HKU1 Not Detected Not Detected LAB MICROBIOLOGY METHOD 12/14/2024 5:56 PM EST [facility] Coronavirus OC43 Not Detected Not Detected LAB MICROBIOLOGY METHOD 12/14/2024 5:56 PM [facility] Coronavirus NL63 Not Detected Not Detected LAB MICROBIOLOGY METHOD 12/14/2024 5:56 PM [facility] Parainfluenza Virus 1 Not Detected Not Detected LAB MICROBIOLOGY METHOD 12/14/2024 5:56 PM [facility] Parainfluenza Virus 2 Not Detected Not Detected LAB MICROBIOLOGY METHOD 12/14/2024 5:56 PM [facility] Parainfluenza Virus 3 Not Detected Not Detected LAB MICROBIOLOGY METHOD 12/14/2024 5:56 PM [facility] Parainfluenza Virus 4 Not Detected Not Detected LAB MICROBIOLOGY METHOD 12/14/2024 5:56 PM [facility] RSV PCR Not Detected Not Detected LAB MICROBIOLOGY METHOD 12/14/2024 5:56 PM [facility] Human Metapneumovirus A and B Not Detected Not Detected LAB MICROBIOLOGY METHOD 12/14/2024 5:56 PM [facility] Rhinovirus/Entero virus Not Detected Not Detected LAB MICROBIOLOGY METHOD 12/14/2024 5:56 PM [facility] Bordetella pertussis Not Detected Not Detected LAB MICROBIOLOGY METHOD 12/14/2024 5:56 PM [facility] Bordetella parapertussis Not Detected Not Detected LAB MICROBIOLOGY METHOD 12/14/2024 5:56 PM [facility] Mycoplasma pneumo by PCR Not Detected Not Detected LAB MICROBIOLOGY METHOD 12/14/2024 5:56 PM [facility] Chlamydia pneumoniae Not Detected Not Detected LAB MICROBIOLOGY METHOD 12/14/2024 5:56 PM [facility] SARS COV-2 Not Detected Not Detected LAB MICROBIOLOGY METHOD 12/14/2024 5:56 PM [facility] Swab Both anterior nares / Unknown Non-blood Collection / Unknown 12/14/2024 4:28 PM EST 12/14/2024 4:34 PM EST Narrative [facility] - 12/14/2024 5:56 PM EST Testing was performed using the [employer] Respiratory Pathogen PCR Assay. All results must [...] MICROBIOLOGY - GENERAL ORDER KAILASH Final Result [facility] [address] [place] [address], * (ABNORMAL) CBC auto differential (12/14/2024 12:01 PM EST) Only the most recent of4 resultswithin the time period is included. WBC 8.5 4.8 - 10.8 K/mcL LAB HEMETOLOGY METHOD 12/14/2024 12:29 PM [facility] RBC 4.40 3.80 - 4.80 M/mcL LAB HEMETOLOGY METHOD 12/14/2024 12:29 PM [facility] Hemoglobin 14.1 11.5 - 16.0 g/dL LAB HEMETOLOGY METHOD 12/14/2024 12:29 PM [facility] Hematocrit 42.2 35.0 - 47.0 % LAB HEMETOLOGY METHOD 12/14/2024 12:29 PM [facility] MCV 96.6 79.0 - 98.0 FL LAB HEMETOLOGY METHOD 12/14/2024 12:29 PM [facility] MCH 32.3(H) 27.0 - 32.0 pcg LAB HEMETOLOGY METHOD 12/14/2024 12:29 PM [facility] MCHC 33.4 32.0 - 37.0 g/dL LAB HEMETOLOGY METHOD 12/14/2024 12:29 PM [facility] RDW 13.2 11.0 - 15.0 % LAB HEMETOLOGY METHOD 12/14/2024 12:29 PM [facility] Platelets 329 130 - 400 K/mcL LAB HEMETOLOGY METHOD 12/14/2024 12:29 PM [facility] MPV 9.5 7.0 - 11.0 FL LAB HEMETOLOGY METHOD 12/14/2024 12:29 PM [facility] NRBC 0.0 <1.0 % LAB HEMETOLOGY METHOD 12/14/2024 12:29 PM [facility] NRBC Absolute 0.00 <0.10 K/mcL LAB HEMETOLOGY METHOD 12/14/2024 12:29 PM [facility] Neutrophils Relative 73.7 % LAB HEMETOLOGY METHOD 12/14/2024 12:29 PM [facility] Lymphocytes Relative 17.8 % LAB HEMETOLOGY METHOD 12/14/2024 12:29 PM [facility] Monocytes Relative 6.9 % LAB HEMETOLOGY METHOD 12/14/2024 12:29 PM [facility] Eosinophils Relative 0.8 % LAB HEMETOLOGY METHOD 12/14/2024 12:29 PM [facility] Basophils Relative 0.4 % LAB HEMETOLOGY METHOD 12/14/2024 12:29 PM [facility] Immature Granulocytes Relative 0.4 % LAB HEMETOLOGY METHOD 12/14/2024 12:29 PM [facility] Neutrophils Absolute 6.29 1.50 - 7.00 K/mcL LAB HEMETOLOGY METHOD 12/14/2024 12:29 PM [facility] Lymphocytes Absolute 1.52 1.00 - 5.00 K/mcL LAB HEMETOLOGY METHOD 12/14/2024 12:29 PM EST [facility] Monocytes Absolute 0.59 0.20 - 1.00 K/mcL LAB HEMETOLOGY METHOD 12/14/2024 12:29 PM EST [facility] Eosinophils Absolute 0.07 0.00 - 0.50 K/mcL LAB HEMETOLOGY METHOD 12/14/2024 12:29 PM EST [facility] Basophils Absolute 0.03 0.00 - 0.20 K/mcL LAB HEMETOLOGY METHOD 12/14/2024 12:29 PM EST [facility] Immature Granulocytes Absolute 0.03 0.00 - 0.03 K/mcL LAB HEMETOLOGY METHOD 12/14/2024 12:29 PM [facility] Blood Venous blood specimen / Unknown Venipuncture / Unknown 12/14/2024 12:01 PM EST 12/14/2024 12:24 PM EST Pepe Mar DO LAB BLOOD ORDERABLES Final Result [facility] [address] [place] [address], [place] [phone] * Phosphorus (12/14/2024 12:01 PM EST) Phosphorus 3.5 2.5 - 4.5 mg/dL LAB CHEMISTRY METHOD 12/14/2024 4:31 PM EST [facility] Blood Venous blood specimen / Unknown Venipuncture / Unknown 12/14/2024 12:01 PM EST 12/14/2024 12:24 PM EST Dwight BOOTHE LAB BLOOD ORDERABLES Final Resul t [facility] [address] [place] [address], [place] [phone] * Magnesium (12/14/2024 12:01 PM EST) Only the most recent of2 resultswithin the time period is included. Magnesium 2.0 1.9 - 2.6 mg/dL LAB CHEMISTRY METHOD 12/14/2024 12:51 PM [facility] Blood Venous blood specimen / Unknown Venipuncture / Unknown 12/14/2024 12:01 PM EST 12/14/2024 12:24 PM EST Pepe Mar DO LAB BLOOD ORDERABLES Final Result [facility] [address] [place] [address], * (ABNORMAL) Basic metabolic panel (12/14/2024 12:01 PM EST) Only the most recent of2 resultswithin the time period is included. Sodium 138 133 - 145 mmol/L LAB CHEMISTRY METHOD 12/14/2024 12:59 PM [facility] Potassium 4.5 3.5 - 5.5 mmol/L LAB CHEMISTRY METHOD 12/14/2024 12:59 PM [facility] Chloride 106 96 - 110 mmol/L LAB CHEMISTRY METHOD 12/14/2024 12:59 PM [facility] CO2 28 21 - 32 mmol/L LAB CHEMISTRY METHOD 12/14/2024 12:59 PM [facility] Anion Gap 4 3 - 11 LAB CHEMISTRY METHOD 12/14/2024 12:59 PM [facility] Glucose 119(H) 70 - 100 mg/dL LAB CHEMISTRY METHOD 12/14/2024 12:59 PM [facility] BUN 13 5 - 25 mg/dL LAB CHEMISTRY METHOD 12/14/2024 12:59 PM [facility] Creatinine 0.82 0.50 - 1.10 mg/dL LAB CHEMISTRY METHOD 12/14/2024 12:59 PM [facility] eGFR 84 >=60 mL/min/1. 73m2 LAB CHEMISTRY METHOD 12/14/2024 12:59 PM EST [facility] Comment:Calculation based on the??Chronic Kidney Disease Epidemiology Collaboration (CKD-EPI) equation refit??without adjustment for race. BUN/Creatinine Ratio 15.9 LAB CHEMISTRY METHOD 12/14/2024 12:59 PM EST [facility] Calcium 9.6 8.5 - 10.5 mg/dL LAB CHEMISTRY METHOD 12/14/2024 12:59 PM EST [facility] Blood Venous blood specimen / Unknown Venipuncture / Unknown 12/14/2024 12:01 PM EST 12/14/2024 12:24 PM EST Pepe Mar DO LAB BLOOD ORDERABLES Final Result [facility] [address] [place] [address], * ECG-Annotated (12/14/2024) Only the most recent of2 resultswithin the time period is included. us Provider Onbase ECG ORDERABLES Final Result * CT Chest/Abdomen/Pelvis [...] by: Molly Garcia MD on 12/05/2024 18:18:[address] IMG [address] PROCEDURES Final R esult * Borrelia burgdorferi antibody (12/05/2024 1:30 PM EST) Only the most recent of2 resultswithin the time period is included. Lyme Ab Negative Negative LAB CHEMISTRY METHOD 12/06/2024 9:08 AM EST [facility] Comment: No laboratory evidence [...] MD LAB BLOOD ORDERABLES Final Resu lt [facility] [address] [place] [address], * Sedimentation rate, automated (12/05/2024 1:30 PM EST) Only the most recent of2 resultswithin the time period is included. [facility] Sed Rate 20 0 - 30 mm/hr LAB HEMETOLOGY METHOD 12/05/2024 1:59 PM EST [facility] Blood Venous blood specimen / Unknown Venipuncture / Unknown 12/05/2024 1:30 PM EST 12/05/2024 1:39 PM EST us Jewel Hernández MD LAB BLOOD ORDERABLES Final Resu lt Performing Organization Address City/[facility]/ZIP Co de Phone Number [facility] [address] [place] [address], * C-reactive protein (12/05/2024 1:30 PM EST) [facility] C-Reactive Protein <0.29 <=0.50 mg/dL LAB CHEMISTRY METHOD 12/05/2024 2:05 PM EST [facility] Blood Venous blood specimen / Unknown Venipuncture / Unknown 12/05/2024 1:30 PM EST 12/05/2024 1:39 PM EST us Jewel Hernández MD LAB BLOOD ORDERABLES Final Resu lt [facility] [address] [place] [address], [place] [phone] * Creatine kinase (12/05/2024 1:30 PM EST) Only the most recent of2 resultswithin the time period is included. [facility] Total CK 80 22 - 269 unit/L LAB CHEMISTRY METHOD 12/05/2024 2:05 PM EST [facility] Blood Venous blood specimen / Unknown Venipuncture / Unknown 12/05/2024 1:30 PM EST 12/05/2024 1:39 PM EST us Jewel Hernández MD LAB BLOOD ORDERABLES Final Resu lt [facility] [address] [place] [address], [place] [phone] * EMG one limb (11/18/2024 1:17 PM [...] narrowing, similar to the prior neck CTA. Telechaka BOOTHE ([id number]) -------- FINAL REPORT -------- Dictated By: Dayami Diehl Dictated Date: 11/19/2024 13:40 ET Assigned Physician: Dayami Diehl Reviewed and Electronically Signed By: Dayami Diehl Signed Date: 11/19/2024 13:45 ET Workstation ID: [id number] Transcribed By: Self Edit Transcribed Date: 11/19/2024 [...] narrowing, similar to the prior neck CTA. Telechaka BOOTHE ([id number]) -------- FINAL REPORT -------- Dictated By: Dayami Diehl Dictated Date: 11/19/2024 13:40 ET Assigned Physician: Dayami Diehl Reviewed and Electronically Signed By: Dayami Diehl Signed Date: 11/19/2024 13:45 ET Workstation ID: [id number] Transcribed By: Self Edit Transcribed Date: 11/19/2024 13:40 ET us Araceli BOOTHE IMG XR PROCEDURES Final Result * CT Lumbar Spine wo Contrast (11/02/2024 3:13 PM EST) Anatomical Region Laterality Modality Spine, L-spine Computed Tomogra phy Historical Provider MD IMG CT PROCEDURES Final R esult * CT Abdomen w Contrast (11/02/2024 3:08 PM EST) Anatomical Region Laterality Modality Body Computed Tomogra phy Historical Provider MD IMG CT PROCEDURES Final R esult * XR Hips 2 Views wo or w Pelvis bilat (11/02/2024 3:06 PM EST) Anatomical Region Laterality Modality Lower Extremities, Hip Bilateral Radiograp hic Imaging Historical Provider IMG XR PROCEDURES Final R esult * Lipid panel with reflex to direct LDL (10/28/2024 2:36 PM EST) Cholesterol 196 0 - 200 mg/dL LAB CHEMISTRY METHOD 10/28/2024 4:17 PM [facility] Triglycerides 51 0 - 150 mg/dL LAB CHEMISTRY METHOD 10/28/2024 4:17 PM [facility] HDL 111 >=40 mg/dL LAB CHEMISTRY METHOD 10/28/2024 4:17 PM [facility] LDL Calculated 75 0 - 100 mg/dL LAB CHEMISTRY METHOD 10/28/2024 4:17 PM [facility] VLDL Cholesterol Corby 10.2 mg/dL LAB CHEMISTRY METHOD 10/28/2024 4:17 PM [facility] Non HDL Chol. (LDL+VLDL) 85 <145 mg/dL LAB CHEMISTRY METHOD 10/28/2024 4:17 PM [facility] Chol/HDL Ratio 1.8 0.0 - 4.4 LAB CHEMISTRY METHOD 10/28/2024 4:17 PM [facility] Blood Venous blood specimen / Unknown Venipuncture / Unknown 10/28/2024 2:36 PM EST 10/28/2024 3:06 PM EST Araceli BOOTHE LAB BLOOD ORDERABLES Fin al Result Performing Organization Address City/[facility]/ZIP Co de Phone Number [facility] [address] [place] [address], [place] [phone] * CAMILO IFA with titer and pattern (10/28/2024 2:36 PM EST) Pathologist [facility] CAMILO Negative Negative 10/31/2024 11:26 AM EST [facility] Blood Venous blood specimen / Unknown Venipuncture / Unknown 10/28/2024 2:36 PM EST 10/28/2024 3:07 PM EST Araceli BOOTHE LAB BLOOD ORDERABLES Fin al Result Performing Organization Address [facility]/ZIP Co de Phone Number [facility] [address] [place] [address], [place] [phone] * (ABNORMAL) Iron and TIBC (10/28/2024 2:36 PM EST) [facility] Iron 41 40 - 150 mcg/dL LAB CHEMISTRY METHOD 10/28/2024 4:15 PM EST [facility] TIBC 392 250 - 450 mcg/dL LAB CHEMISTRY METHOD 10/28/2024 4:15 PM EST [facility] Iron Saturation 10(L) 15 - 50 % LAB CHEMISTRY METHOD 10/28/2024 4:15 PM EST [facility] Blood Venous blood specimen / Unknown Venipuncture / Unknown 10/28/2024 2:36 PM EST 10/28/2024 3:06 PM EST Araceli BOOTHE LAB BLOOD ORDERABLES Fin al Result Performing Organization Address City/[facility]/ZIP Co de Phone Number [facility] [address] [place] [address], [place] [phone] * Vitamin D 25 hydroxy (10/28/2024 2:36 PM EST) [facility] Vit D, 25-Hydroxy 40.6 30.0 - 80.0 ng/mL LAB CHEMISTRY METHOD 10/28/2024 4:18 PM EST [facility] Blood Venous blood specimen / Unknown Venipuncture / Unknown 10/28/2024 2:36 PM EST 10/28/2024 3:06 PM EST Araceli BOOTHE LAB BLOOD ORDERABLES Fin al Result Performing Organization Address [facility]/ZIP Co de Phone Number [facility] [address] [place] [address], [place] [phone] * (ABNORMAL) Rheumatoid factor (10/28/2024 2:36 PM EST) [facility] Rheumatoid Factor 152.0(H) <15.0 I Unit/mL LAB CHEMISTRY METHOD 10/28/2024 4:15 PM EST [facility] Blood Venous blood specimen / Unknown Venipuncture / Unknown 10/28/2024 2:36 PM EST 10/28/2024 3:06 PM EST Araceli BOOTHE LAB BLOOD ORDERABLES Fin al Result Performing Organization Address [facility] Co de Phone Number [facility] [address] [place] [address], [place] [phone] * C reactive protein, high sensitivity (10/28/2024 2:36 PM EST) [facility] CRP, High Sensitivity 0.58 mg/L LAB CHEMISTRY METHOD 10/28/2024 4:11 PM EST [facility] Comment: Cardio CRP Relative Risk Categories [...] ORDERABLES Fin al Result Performing Organization Address [facility]/ZIP Co de Phone Number [facility] [address] [place] [address], * Thyroid stimulating hormone (10/28/2024 2:36 PM EST) Only the most recent of2 resultswithin the time period is included. Pathologist [facility] TSH 0.60 0.40 - 4.00 mcIU/mL LAB CHEMISTRY METHOD 10/28/2024 4:19 PM EST [facility] Blood Venous blood specimen / Unknown Venipuncture / Unknown 10/28/2024 2:36 PM EST 10/28/2024 3:06 PM EST Araceli BOOTHE LAB BLOOD ORDERABLES Fin al Result Performing Organization Address [facility] de Phone Number [facility] [address] [place] [address], [place] [phone] * Hemoglobin A1c (10/28/2024 2:36 PM EST) Pathologist [facility] Hemoglobin A1C 5.4 <6.5 % LAB CHEMISTRY METHOD 10/28/2024 9:16 PM EST [facility] Mean Bld Glu Estim. 108 mg/dL LAB CHEMISTRY METHOD 10/28/2024 9:16 PM EST [facility] Blood Venous blood specimen / Unknown Venipuncture / Unknown 10/28/2024 2:36 PM EST 10/28/2024 3:10 PM EST Araceli BOOTHE LAB BLOOD ORDERABLES Fin al Result Performing Organization Address City/[facility]/ZIP Co de Phone Number [facility] [address] [place] [address], [place] [phone] * Ferritin (10/28/2024 2:36 PM EST) [facility] Ferritin 28 8 - 252 ng/mL LAB CHEMISTRY METHOD 10/28/2024 4:15 PM EST [facility] Blood Venous blood specimen / Unknown Venipuncture / Unknown 10/28/2024 2:36 PM EST 10/28/2024 3:06 PM EST Araceli BOOTHE LAB BLOOD ORDERABLES Fin al Result Performing Organization Address [facility]/ZIP Co de Phone Number [facility] [address] [place] [address], [place] [phone] * (ABNORMAL) Comprehensive metabolic panel (10/28/2024 2:36 PM EST) Only the most recent of2 resultswithin the time period is included. [facility] Sodium 139 133 - 145 mmol/L LAB CHEMISTRY METHOD 10/28/2024 4:15 PM [facility] Potassium 4.0 3.5 - 5.5 mmol/L LAB CHEMISTRY METHOD 10/28/2024 4:15 PM [facility] Chloride 105 96 - 110 mmol/L LAB CHEMISTRY METHOD 10/28/2024 4:15 PM [facility] CO2 29 21 - 32 mmol/L LAB CHEMISTRY METHOD 10/28/2024 4:15 PM [facility] Anion Gap 5 3 - 11 LAB CHEMISTRY METHOD 10/28/2024 4:15 PM [facility] Glucose 101(H) 70 - 100 mg/dL LAB CHEMISTRY METHOD 10/28/2024 4:15 PM [facility] BUN 12 5 - 25 mg/dL LAB CHEMISTRY METHOD 10/28/2024 4:15 PM [facility] Creatinine 0.87 0.50 - 1.10 mg/dL LAB CHEMISTRY METHOD 10/28/2024 4:15 PM [facility] eGFR 78 >=60 mL/min/1. 73m2 LAB CHEMISTRY METHOD 10/28/2024 4:15 PM [facility] Comment:Calculation based on the??Chronic Kidney Disease Epidemiology Collaboration (CKD-EPI) equation refit??without adjustment for race. BUN/Creatinine Ratio 13.8 LAB CHEMISTRY METHOD 10/28/2024 4:15 PM [facility] Calcium 9.5 8.5 - 10.5 mg/dL LAB CHEMISTRY METHOD 10/28/2024 4:15 PM [facility] AST (SGOT) 13 10 - 42 unit/L LAB CHEMISTRY METHOD 10/28/2024 4:15 PM [facility] ALT (SGPT) 15 10 - 60 unit/L LAB CHEMISTRY METHOD 10/28/2024 4:15 PM [facility] Alkaline Phosphatase 100 42 - 121 unit/L LAB CHEMISTRY METHOD 10/28/2024 4:15 PM [facility] Total Protein 6.9 6.0 - 8.0 g/dL LAB CHEMISTRY METHOD 10/28/2024 4:15 PM [facility] Albumin 3.8 3.2 - 5.0 g/dL LAB CHEMISTRY METHOD 10/28/2024 4:15 PM [facility] Total Bilirubin 0.3 0.0 - 1.4 mg/dL LAB CHEMISTRY METHOD 10/28/2024 4:15 PM [facility] Blood Venous blood specimen / Unknown Venipuncture / Unknown 10/28/2024 2:36 PM EST 10/28/2024 3:06 PM EST us Araceli BOOTHE LAB BLOOD ORDERABLES Fin al Result [facility] [address] [place] [address], * Drug abuse screen 8a panel, urine (10/26/2024 1:47 PM EST) [facility] Amphetamine Screen, Ur Negative Negative LAB CHEMISTRY METHOD 10/26/2024 2:22 PM [facility] Comment:Certain OTC medicati ons containing ephedrine, phenylephrine, pseudoephedrine and phenylpropanolamine can cause false positive results. Barbiturate Screen, Ur Negative Negative LAB CHEMISTRY METHOD 10/26/2024 2:22 PM [facility] Benzodiazepine Screen, Ur Negative Negative LAB CHEMISTRY METHOD 10/26/2024 2:22 PM [facility] Cocaine Screen, Ur Negative Negative LAB CHEMISTRY METHOD 10/26/2024 2:22 PM [facility] Opiate Screen, Ur Negative Negative LAB CHEMISTRY METHOD 10/26/2024 2:22 PM [facility] Cannabinoid (THC) Screen, Ur Negative Negative LAB CHEMISTRY METHOD 10/26/2024 2:22 PM [facility] Comment:Specimens from patie nts taking pantoprazole sodium (Protonix) have been shown to produce false positive results. Oxycodone Screen, Ur Negative Negative LAB CHEMISTRY METHOD 10/26/2024 2:22 PM [facility] Fentanyl, Ur Negative Negative LAB CHEMISTRY METHOD 10/26/2024 2:22 PM [facility] Urine Urine specimen obtained by clean catch procedure / Unknown Non-blood Collection / Unknown 10/26/2024 1:47 PM EST 10/26/2024 1:57 PM EST [facility] - 10/26/2024 2:22 PM EST [...] ORDERABLES Final Res ult Performing Organization Address [facility] de Phone Number [facility] [address] [place] [address], * Oxycodone, urine (10/26/2024 1:47 PM EST) Oxycodone Screen, Ur Negative Negative LAB CHEMISTRY METHOD 10/26/2024 2:22 PM EST [facility] Comment: Assay cutoff 100 ng/mL Semi-quantitative assay for screening purposes only. Unconfirmed screening result should not be used for non-medical purposes. *ALTERNATE METHOD CONFIRMATION DONE UPON REQUEST ONLY* Urine Urine specimen obtained by clean catch procedure / Unknown Non-blood Collection / Unknown 10/26/2024 1:47 PM EST 10/26/2024 1:57 PM EST Axel Wiley MD LAB URINE ORDERABLES Final Res ult Performing Organization Address [facility] de Phone Number [facility] [address] [place] [address], * Culture urine (10/26/2024 8:01 AM EST) Culture, Urine >100,000 CFU/mL Mixed urogenital ramone, no uropathogens present. Suggest repeat specimen if clinically indicated. 10/28/2024 7:41 AM EST [facility] Urine Urine specimen obtained by clean catch procedure / Unknown Non-blood Collection / Unknown 10/26/2024 8:01 AM EST 10/26/2024 8:44 AM EST Avis BOOTHE LAB MICROBIOLOGY - GEN ERAL ORDERABLES Final Result Performing Organization Address City/[facility]/ZIP Co de Phone Number [facility] [address] [place] [address], [place] [phone] * T4, Free (10/26/2024 7:11 AM EST) [facility] T4 1.09 0.70 - 1.80 ng/dL LAB CHEMISTRY METHOD 10/26/2024 10:03 AM EST [facility] Blood Venous blood specimen / Unknown Venipuncture / Unknown 10/26/2024 7:11 AM EST 10/26/2024 7:20 AM EST Axel Wiley MD LAB BLOOD ORDERABLES Final Res ult Performing Organization Address City/[facility]/ZIP Co de Phone Number [facility] [address] [place] [address], [place] [phone] * HIV Screening (05/20/2024) [facility] HIV Screening abstracted Historical Provider HEALTH MAINTENANCE Final Result * Hepatitis C Screening (05/20/2024) [facility] Hepatitis C Screening abstracted Historical Rickey ENRIQUE HEALTH MAINTENANCE Final Result * Colonoscopy (08/15/2023) [facility] Colonoscopy no interpreta tion,abstr acted Anatomical Region Laterality Modality Other Historical Rickey ENRIQUE HEALTH MAINTENANCE Final Result * Cervical Cancer Screening: HPV (07/20/2023) [facility] Cervical Cancer Screening: HPV no interpreta tion,abstr acted Historical Rickey ENRIQUE HEALTH MAINTENANCE Final Result * ADRIAN SCREENING DIGITAL (06/05/2023 4:45 PM EDT) Anatomical Region Laterality Modality Mammography 06/02/2023 12:4 2 PM EDT Narrative 06/05/2023 4:45 PM EDT [facility] Diagnostic Imaging Department [address] [place] [id number] Patient: ??MARÍA PHILLIPS ?/Age/Sex: 1965 - 57 - F Unit#: ??[id number] ? Location/Status: ??SPDIMAM/REG CLI ? Mnemonic/Ordering Site: ??DIGSC/SPMAM Ordering Physician: ??JANICE SCHAFER MD [facility] Screening Digital - 06/02/23 - 1329 Report Status:Signed EXAM: [facility] Screening Digital EXAM DATE AND TIME: 06/02/2023 1:29 PM HISTORY: ??Screening. Excisional biopsy of the left breast in 2016, pathology benign. COMPARISON: ??02/27/19, 07/26/17, 08/08/16, 07/25/16, 08/28/07 TECHNIQUE: Bilateral digital breast tomosynthesis was performed in the CC and MLO projections. Computer aided detection with [employer] 3D 3.1 was employed. TISSUE DENSITY: a. [...] Signed by: ??DAYAMI DIEHL MD Dic Date/Time: ??06/05/231643 Sign date/Time: ??06/05/231644 Procedure Note Dayami Diehl MD - 12/12/2023 [facility] Diagnostic Imaging Department [address] [place] [address] Patient: MARÍA PHILLIPS Ketan /Age/Sex: 1965 - 57 - F Unit#: [id number] Location/Status: [facility] Mnemonic/Ordering Site: [facility] Ordering Physician: JANICE SCHAFER MD [facility] Screening Digital - 06/02/23 - 1329 Report Status:Signed EXAM: [facility] Screening Digital EXAM DATE AND TIME: 06/02/2023 1:29 PM HISTORY: Screening. Excisional biopsy of the left breast in 2016,pathology benign. COMPARISON: 02/27/19, 07/26/17, 08/08/16, 07/25/16, 08/28/07 TECHNIQUE: Bilateral digital breast tomosynthesis was performed in the CCand MLO projections. Computer aided detection with [employer] 3D 3.1was employed. TISSUE DENSITY: a. The [...] Signed by: DAYAMI DIEHL MD Dic Date/Time: 06/05/231643 Sign date/Time: 06/05/231644 Janice Schafer MD IMG BI PROCEDURES Final Re sult from Last 3 Months or Most Recently Relevant to Health Maintenance Insurance [facility] Care Teams Title Insurance Examiner Relationship Specialty Start Date End Date Araceli Augustin PA [address] [address] PCP - General 11/20/24
--- OUTSIDE RECORDS SUMMARY | 2025-01-13 11:18 | XMS_ITS ---
Author Organization [facility] Address [address] [place] [address] Care Team Providers Care Stone Operator Name Role Phone IKER ROBLERO PA-C Primary Care Provider Latonya Ramirez Unavailable [phone] Allergies Allergen (clinical drug ingredient) Drug/Non Drug Allergy documented on EMR Reaction Allergy Type Onset Date Status erythromycin ERYTHROMYCIN Skin Rash Drug Allergy A ctive Results Component Value Reference Range Notes Vitamin [id number] Reviewed date:12/14/2024 02:48:01 PM Interpretation: Performing Lab:[facility], [address] [place] [address], Phone - [phone], Director - MDJodry Notes/Report: Test(s) 997237-Rhb. B1, Whole Blood was developed and its performance characteristics determined by [facility]. It has not been cleared or approved by the Food and Drug Administration. Vitamin B12 334 949-0645 pg/mL Thyroxine (T4) Free, Direct- 339280 Reviewed date:12/14/2024 02:48:28 PM Interpretation: Performing Lab:[facility], Phone - [phone], Director - MDJodry Notes/Report: Test(s) 508968-Nam. B1, Whole Blood was developed and its performance characteristics determined by [facility]. It has not been cleared or approved by the Food and Drug Administration. T4,Free(Direct) 1.16 0.82-1.77 ng/dL TSH-[id number] Reviewed date:12/14/2024 02:48:55 PM Interpretation: Performing Lab:[facility], [address] [place] [address], Phone - [phone], Director - MDJodry Notes/Report: Test(s) 296762-Pvr. B1, Whole Blood was developed and its performance characteristics determined by [facility]. It has not been cleared or approved by the Food and Drug Administration. TSH 0.492 0.450-4.500 uIU/mL Triiodothyronine (T3), Free- 209911 Reviewed date:12/14/2024 02:48:08 PM Interpretation: Performing Lab:[facility] [address], Phone - [phone], Director - Elsa Notes/Report: Test(s) 094890-Ypf. B1, Whole Blood was developed and its performance characteristics determined by [facility]. It has not been cleared or approved by the Food and Drug Administration. Triiodothyronine (T3), Free 2.9 2.0-4.4 pg/mL Vitamin D, 35-Pkgfihx-890586 Reviewed date:12/14/2024 02:47:53 PM Interpretation: Performing Lab:[facility] [address], Phone - [phone], Director - Elsa Notes/Report: Test(s) 013641-Tem. B1, Whole Blood was developed and its performance characteristics determined by [facility]. It has not been cleared or approved by the Food and Drug Administration. Vitamin D, 25-Hydroxy 48.0 30.0-100.0 ng/mL Vitamin D deficiency has been defined by the [place] of [employer] and an Endocrine Society practice guideline as a level of serum 25-OH vitamin D less than 20 ng/mL (1,2). The Endocrine Society went on to further define vitamin D insufficiency as a level between 21 and 29 ng/mL (2). 1. IOM ([place] of Medicine). 2010. Dietary reference intakes for calcium and D. [place]: The National Academies Press. 2. Angelica MF, Leonel NC, Sheeba MCKENNA, et al. Evaluation, treatment, and prevention of vitamin D deficiency: an Endocrine Society clinical practice guideline. JCEM. 2010; 96(7):1911-30. Vitamin B1 (Thiamine), Blood -902249 Reviewed date:12/14/2024 02:48:18 PM Interpretation: Performing Lab:[facility] [address], [place], Phone - [phone], Director - Elsa Notes/Report: Test(s) 817514-Uxa. B1, Whole Blood was developed and its performance characteristics determined by [facility]. It has not been cleared or approved by the Food and Drug Administration. Vit. B1, Whole Blood 131.3 66.5-200.0 nmol/L PDF Report Reviewed date:12/14/2024 02:47:46 PM Interpretation: Performing Lab:[facility], [address], [place], Phone - [phone], Director - Elsa Notes/Report: Test(s) 164136-Vvr. B1, Whole Blood was developed and its performance characteristics determined by [facility]. It has not been cleared or approved by the Food and Drug Administration. REASON FOR VISIT TALK HRT Medications Medication SIG (Take, Route, Frequency, Duration) Notes Start Date End Date Status Prometrium 100 MG 1 capsule at bedtime Orally Once a day for 90 days 12/09/2024 Active Turmeric 500 MG as directed Orally Active Gabapentin 100 MG TAKE 1 CAPSULE BY [facility] 3 TIMES A DAY Oral for 30 [...] Encounters Encounter Location Date Provider Diagnosis Total [address] [place] [address] 12/09/2024 Latonya Lozano Other fatigue R53.83 and [...] AND NEEDS TESTOSTERONE THERAPY, WILL REFER TO [facility]. WARNED DALE OF POSSIBLE VAGINAL [...] AND NEEDS TESTOSTERONE THERAPY, WILL REFER TO [facility]. WARNED PAT OF POSSIBLE VAGINAL BLEEDING. CALL IF SHE HAS ANY BLEEDING. Next Appt Details Follow Up: 3 Months, Reason: Progress Notes * MIS OLSONOB:1965 (59 yo F)Acc No.[id number]:12/09/2024 PROGRESS NOTES Patient:?MARCUS OLSON Appointment Provider:?Latonya lopez M.D. :1965???Age:59 Y???Sex:Female D ate:12/09/2024 Address:[address] [place] [address] Pcp:CHANTAL KHAN MD Subjective: * Chief Complaints: [...] stool.?no?genitourinary complaints.?no?skin complaints.? 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 * Home Maker History:?/ Para?2/2.?Sexual activity?not currently sexually active.?Last Pap Smear:?05/26/23 ASCUS, POS HRHPV (Neg 16, 18/45), 03/28/22 LGSIL, POS HRHPV (neg 16, 18/45), 11/21/17 NEG HRHPV, 2011.?Mammogram:?06/02/23 < 50% density, 02/27/19 < 50% density, 07/26/2017 normal, 07/2016 with follow up Lt Diagnostic 07/09/2016 Bx recommended.?Abnormal Pap Smear:?07/07/23 Hext Negative, 06/06/22 Hext Negative, 03/2022 LGSIL, + HRHPV.?LMP and menses?[place] 01/2017.? Control:?None.?Colonoscopy?08/2023, 1998.?Bone Density:?06/02/23.? * OB History:?Total [...] AND NEEDS TESTOSTERONE THERAPY, WILL REFER TO [facility]. WARNED PAT OF POSSIBLE VAGINAL BLEEDING. CALL IF SHE HAS ANY BLEEDING.?? * Procedure Codes:? * Follow Up:?3 Months * Images: Billing Information: * Visit Code:? * Procedure Codes:? * Sign off status: Completed true * Appointment Provider:?Latonya Lozano M.D. Date:?12/09/2024 Generated for Renay bear/H[place] on:?01/13/2025 11:17 AM EDT History and Physical Notes * HPI (History [...]
--- OUTSIDE RECORDS SUMMARY | 2025-01-13 11:18 | XMS_ITS | Patient Health Record ---
Author Organization [facility] Address [address] [facility] [address] [place] [address] Care Team Providers Care [place] Buyer Name Role Phone DUDLEYUlices LINDA Primary Care Provider SharifcarlosHugo brumfield Unavailable [phone] Allergies Allergen (clinical drug ingredient) Drug/Non Drug Allergy documented on EMR Reaction Allergy Type Onset Date Status azithromycin Azithromycin Unknown Drug Allergy A ctive clindamycin Clindamycin Unknown Drug Allergy Act aashish Results Component Value Reference Range Notes XR CERVICAL SPINE 4-5 VIEWS Reviewed date:11/21/2024 07:59:09 AM Interpretation: Performing Lab: Notes/Report: Note See Note [facility], a member of [employer] Patient Name: MARÍA OLSON Date of : 1965 Reason for Exam: OTHER Exam Date: 11/18/2024 [id number] EST Report Status: Final Ordering Provider: IKER [...] similar to the prior neck CTA. [place] PA ([id number]) -------- FINAL REPOR T -------- Dictated By: Dayami Walker i Dictated Date: 11/19/2024 13:40 ET Assigned Physician: Dayami Diehl Reviewed and Electronically Signed By: Dayami Diehl Signed Date: 025 13:45 ET Workstation ID: [id number] Transcribed By: Self Edit Transcribed Date: 11/19/2024 13:40 ET Lipid Panel-[id number] Reviewed date:09/09/2024 12:30:11 PM Interpretation: Performing Lab:[facility], [address] [facility], Phone - [phone], Director - MDJodry Notes/Report: Cholesterol, Total 269 100-199 mg/dL Triglycerides 73 0-149 mg/dL HDL Cholesterol 96 >39 mg/dL VLDL Cholesterol Corby 12 5-40 mg/dL LDL Chol Calc ([facility]) 161 0-99 mg/dL CBC With Differential/Platel et-[id number] Reviewed date:07/30/2024 07:54:24 AM Interpretation: Performing Lab:[facility], [address] [place] [address], [place], Phone - [phone], Director - MDJodry Notes/Report: WBC 5.4 3.4-10.8 [...] Immature Grans (Abs) 0.0 0.0-0.1 x10E3/uL TSH+Free [id number] Reviewed date:07/30/2024 07:54:27 AM Interpretation: Performing Lab:[facility] [employer] [facility], [address] [place] [address], Phone - [phone], Director - MDJodry Notes/Report: TSH 0.365 0.450-4.500 uIU/mL T4,Free([facility]) 1.20 0.82-1.77 ng/dL Lipid Panel-[id number] Reviewed date:07/30/2024 03:17:56 PM Interpretation: Performing Lab:[facility] [place], [address] [place] [address], Phone - [phone], Director - MDJodry Notes/Report: Cholesterol, Total 266 100-199 mg/dL Triglycerides 102 0-149 mg/dL HDL Cholesterol 82 >39 mg/dL VLDL Cholesterol Corby 17 5-40 mg/dL LDL Chol Calc ([facility]) 167 0-99 mg/dL Comp. Metabolic Panel (14)-3 [id number] Reviewed date:07/30/2024 07:54:38 AM Interpretation: Performing Lab:[facility] [place], [address] [place] [address], Phone - [phone], [facility] Notes/Report: Glucose 92 70-99 mg/dL BUN 5 [...] 0-40 IU/L ALT (SGPT) 23 0-32 IU/L Reason For Referral Reason Evaluation and manag ement - Dr New Diagnosis 1 Sprain of ribs, init ial encounter (S23.41XA) Referral Organization [facility] Referring Provider First Name LINDA Referring Provider Last Name [facility] Referring Provider Speciality Internal edicine Referred Provider Specialty Physical Med icine General Notes Referral faxed to [facility] Physical Medicine - Office will call patient for scheduling., Leah Bourgeois 08/21/2024 04:24:37 PM > Referral Priority Routine Reason Evaluation and manag ement Diagnosis 1 Sprain of ribs, init ial encounter (S23.41XA) Referral Organization [facility] Referring Provider First Name LINDA Referring Provider Last Name [facility] Referring Provider Speciality Internal edicine Referred Provider Specialty Physical Med icine and Rehabilitation General Notes Referral sent to [facility] Phys[facility] - Office will call patient for scheduling., Leah Bourgeois 08/27/2024 11:24:16 AM > Referral Priority Routine Reason Evaluation and manag ement Diagnosis 1 Sprain of ribs, init ial encounter (S23.41XA) Referral Organization [facility] Referring Provider First Name LINDA Referring Provider Last Name [facility] Referring Provider Speciality Internal edicine Referred Provider Specialty Pulmonology General Notes Referral sent to [facility] - Office will call patient for scheduling.Bk Latraya 08/27/2024 04:11:52 PM > Referral Priority Routine Reason Please evaluate and treat Diagnosis 1 Spondylolisthesis, l umbar region (M43.16) Referral Organization [facility] Referring Provider First Name Hugo Referring Provider Last Name Sherlyn Referred Provider Specialty Orthopedic S urgery General Notes Referral faxed to Dr Clive Ross per patient's request at [phone]., Adelita Cerrato 10/03/2024 11:16:33 AM > Referral [...] W/U Status Risk Notes Problem Autoimmune thyroiditis (94554651) Autoimmune thyroiditis (E06.3) Active confirmed Problem Vitamin deficiency (71273913) Vitamin deficiency, unspecified (E56.9) Active confirmed Problem Mixed hyperlipidemia (718899557) Mixed hyperlipidemia (E78.2) Active confirmed Problem Tobacco user (658229036) Nicotine dependence, cigarettes, uncomplicated (F17.210) Active confirmed Problem Generalized anxiety disorder (96375596) Generalized anxiety disorder (F41.1) Active confirmed Problem Chronic sinusitis (66095818) Chronic sinusitis, unspecified (J32.9) Active confirmed Problem Rheumatoid arthritis (10345601) Other rheumatoid arthritis with rheumatoid factor of unspecified site (M05.80) Active confirmed Problem Acquired spondylolisthesis (191133052) Spondylolisthesis , lumbar region (M43.16) Active confirmed Problem Solitary sacroiliitis (296552913) Sacroiliitis, not elsewhere classified (M46.1) Active confirmed Problem Solitary pulmonary nodule (993655673) Solitary pulmonary nodule (R91.1) Active confirmed Vital Signs Heart Rate 75 /min 09/24/2024 Temperature 97.4 degrees Fahrenheit 09/24/2024 Blood pressure diastolic 76 mm Hg 09/24/2024 Oximetry 98 % 09/24/2024 Height 5'4 in 09/24/2024 Blood pressure systolic 130 mm Hg 09/24/2024 Weight 164 lbs 09/24/2024 BMI 28.15 kg/m2 09/24/2024 Encounters Encounter Location Date Provider Diagnosis [address] [address] 07/29/2024 MCKEON GUL Other rheumatoid arthritis with rheumatoid factor of unspecified site M05.80 ; Latent tuberculosis Z22.7 ; Personal history of COVID-19 Z86.16 ; Generalized anxiety disorder F41.1 ; Nicotine dependence, cigarettes, uncomplicated F17.210 ; Tobacco abuse counseling Z71.6 ; Solitary pulmonary nodule R91.1 ; Autoimmune thyroiditis E06.3 and Acute sinusitis, unspecified J01.[address] [address] 08/16/2024 Ghadeer Mazloum Bilateral temporomandibular joint disorder, unspecified M26.603 ; Chronic sinusitis, unspecified J32.9 and Mixed hyperlipidemia E78.[address] [address] 08/21/2024 MCKEONNOREEN BUCKNERL Sprain of ribs, init ial encounter S23.41XA [address] [place] [address] 09/24/2024 Ghadeer Mazloum Intercostal pain R07 .82 and Sacroiliitis, not elsewhere classified M46.1 [facility] [address] [facility] [address] [place] [address] 07/16/2024 [facility] [address] [facility] [address] [place] [address] 07/29/2024 [facility] [address] [facility] [address] [place] [address] 07/30/2024 [facility] Mixed hyperlipidemia E78.2 [facility] [address] [facility] [address] [place] [address] 08/07/[address] [place] [address] 08/19/[address] [place] [address] 08/20/[address] [place] [address] 08/21/2024 MCKEON GUL Sprain of ribs, init ial encounter S23.41XA [facility] [address] [facility] [address] [place] [address] 08/28/[address] [place] [address] 09/02/[address] [place] [address] 09/04/2024 MCKEON GUL Left upper quadrant pain R10.12 and Sprain of ribs, initial encounter S23.41XA [facility] [address] [facility] [address] [place] [address] 09/16/2024 MCKEON GUL Left upper quadrant pain R10.[address] [place] [address] 10/31/2024 [facility] [address] [facility] [address] [place] [address] 07/31/2024 MCKEON GUL Weakness R53.1 and L eft upper quadrant pain R10.12 [facility] [address] [facility] [address] [place] [address] 08/14/2024 [facility] [address] [facility] [address] [place] [address] 08/20/2024 [facility] [address] [facility] [address] [place] [address] 08/20/2024 [facility] [address] [facility] [address] [place] [address] 08/20/[address] [facility] [address] [facility] [address] [place] [address] 08/22/2024 [facility] [address] [facility] [address] [place] [address] 08/22/2024 [facility] [address] [facility] [address] [place] [address] 08/22/2024 [facility] [address] [facility] [address] [place] [address] 08/22/2024 [facility] [address] [facility] [address] [place] [address] 08/22/2024 [facility] [address] [facility] [address] [place] [address] 08/23/2024 [facility] [address] [facility] [address] [place] [address] 08/23/2024 [facility] [address] [facility] [address] [place] [address] 08/23/2024 [facility] [address] [facility] [address] [place] [address] 08/23/2024 MCKEON GUL [facility] [address] [facility] [address] [place] [address] 08/23/2024 [facility] [address] [facility] [address] [facility] [place] [address] 08/26/2024 MCKEON L [facility] [address] [facility] [address] [place] [address] 08/26/2024 [facility] [address] [facility] [address] [place] [address] 08/27/2024 [facility] [address] [facility] [address] [place] [address] 08/27/2024 [facility] [address] [facility] [address] [place] [address] 08/27/2024 [facility] [address] [facility] [address] [place] [address] 08/27/2024 [facility] [address] [facility] [address] [place] [address] 08/28/2024 [facility] [address] [facility] [address] [place] [address] 08/28/2024 [facility] [address] [facility] [address] [place] [address] 08/28/2024 [facility] [address] [facility] [address] [place] [address] 08/28/2024 [facility] [address] [facility] [address] [place] [address] 08/28/2024 [facility] [address] [facility] [address] [place] [address] 08/28/2024 [facility] [address] [facility] [address] [place] [address] 08/28/2024 [facility] [address] [facility] [address] [place] [address] 08/28/2024 [facility] [address] [facility] [address] [place] [address] 08/28/2024 [facility] [address] [facility] [address] [place] [address] 08/28/2024 [facility] [address] [facility] [address] [place] [address] 08/28/2024 [facility] [address] [facility] [address] [place] [address] 08/30/2024 [facility] [address] [facility] [address] [place] [address] 09/02/2024 MCKEON [facility] Left upper quadrant pain R10.12 [facility] [address] [facility] [address] [place] [address] 09/03/2024 [facility] [address] [facility] [address] [place] [address] 09/04/2024 MCKEON [facility] Vitamin deficiency, unspecified E56.9 [facility] [address] [facility] [address] [place] [address] 09/04/2024 MCKEON GUL Encounter for screen ing mammogram for malignant neoplasm of breast Z12.31 [facility] [address] [facility] [address] [place] [address] 09/05/2024 [facility] [address] [facility] [address] [place] [address] 09/06/2024 [facility] [address] [facility] [address] [place] [address] 09/09/2024 [facility] [address] [facility] [address] [place] [address] 09/11/2024 [facility] [address] [facility] [address] [facility] [place] [address] 09/17/[address] [facility] [address] [facility] [address] [facility] [place] [address] 09/17/[address] [facility] [address] [facility] [address] [place] [address] 09/17/[address] [facility] [address] [facility] [address] [place] [address] 09/18/[address] [facility] [address] [facility] [address] [place] [address] 09/19/2024 [facility] [address] [facility] [address] [place] [address] 09/19/2024 [facility] [address] [facility] [address] [facility] [place] [address] 09/25/2024 [facility] [address] [facility] [address] [place] [address] 09/26/2024 [facility] [address] [facility] [address] [facility] [place] [address] 09/30/2024 [facility] [address] [facility] [address] [facility] [place] [address] 10/01/2024 [facility] [address] [facility] [address] [facility] [place] [address] 10/01/2024 [facility] [address] [facility] [address] [place] [address] 10/07/2024 [facility] [address] [facility] [address] [place] [address] 10/07/[address] [facility] [address] [facility] [address] [place] [address] 10/10/2024 [facility] [address] [facility] [address] [place] [address] 10/21/2024 Hugo Olguincarlosoctaviano Rib pain on right si de R07.81 [facility] [address] [facility] [address] [place] [address] 10/24/2024 Hugo Plata Assessments Encounter Date Diagnosis (ICD Code) Assessment Notes Treatment Notes Treatment Clinical Notes Section Notes 07/29/2024 Other rheumatoid arthritis with rheumatoid factor of unspecified site (ICD-10 - M05.80) María is a 59-year-old lady with rheumatoid arthritis, generalized anxiety disorder here to establish care. Plan is as follows: Rheumatoid arthritis. [place] [facility] 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 Generalized anxiety disorder. Mood is stable on [...] is asymptomatic Eye screening. She sees her acid conditioning worker Dr. Leonardo regularly. Dental screening. She sees dentist regularly. Breast cancer screening. She is up-to-date on her mammogram. Female screening. She follows up with her astrophysics teacher for breast and pelvic exams. Colon cancer screening. She had her colonoscopy done in 2022 and is on [id number]-[id number]. Immunizations. She is up-to-date on her COVID and influenza vaccinations. Screening blood work before next appointment. General health concerns discussed with patient. Scribe services used to formulate this note under HIPAA compliance and under [place] law mandated for scribe services. Patient aware [...] Rheumatoid arthritis. She [place] Dr. Bang [place] [facility] 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 Generalized anxiety disorder. Mood is stable on [...] is asymptomatic Eye screening. She sees her acid conditioning worker Dr. Leonardo regularly. Dental screening. She sees dentist regularly. Breast cancer screening. She is up-to-date on her mammogram. Female screening. She follows up with her astrophysics teacher for breast and pelvic exams. Colon cancer screening. She had her colonoscopy done in 2022 and is on [id number]-pvkjt. Immunizations. She is up-to-date on her COVID and influenza vaccinations. Screening blood work before next appointment. General health concerns discussed with patient. Scribe services used to formulate this note under HIPAA compliance and under [place] law mandated for scribe services. Patient aware [...] Rheumatoid arthritis. She [place] Dr. Bang [place] [facility] 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 Generalized anxiety disorder. Mood is stable on [...] is asymptomatic Eye screening. She sees her acid conditioning worker Dr. Leonardo regularly. Dental screening. She sees dentist regularly. Breast cancer screening. She is up-to-date on her mammogram. Female screening. She follows up with her astrophysics teacher for breast and pelvic exams. Colon cancer screening. She had her colonoscopy done in 2022 and is on 28-[id number]-[id number]. Immunizations. She is up-to-date on her COVID and influenza vaccinations. Screening blood work before next appointment. General health concerns discussed with patient. Scribe services used to formulate this note under HIPAA compliance and under [place] law mandated for scribe services. Patient aware [...] Rheumatoid arthritis. She [place] Dr. Bang [place] [facility] 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 Generalized anxiety disorder. Mood is stable on [...] is asymptomatic Eye screening. She sees her acid conditioning worker Dr. Leonardo regularly. Dental screening. She sees dentist regularly. Breast cancer screening. She is up-to-date on her mammogram. Female screening. She follows up with her astrophysics teacher for breast and pelvic exams. Colon cancer screening. She had her colonoscopy done in 2022 and is on [id number]-[id number]. Immunizations. She is up-to-date on her COVID and influenza vaccinations. Screening blood work before next appointment. General health concerns discussed with patient. Scribe services used to formulate this note under HIPAA compliance and under [place] law mandated for scribe services. Patient aware [...] Rheumatoid arthritis. She [place] Dr. Bang [place] [facility] 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 Generalized anxiety disorder. Mood is stable on [...] is asymptomatic Eye screening. She sees her acid conditioning worker Dr. Leonardo regularly. Dental screening. She sees dentist regularly. Breast cancer screening. She is up-to-date on her mammogram. Female screening. She follows up with her astrophysics teacher for breast and pelvic exams. Colon cancer screening. She had her colonoscopy done in 2022 and is on [id number]. Immunizations. She is up-to-date on her COVID and influenza vaccinations. Screening blood work before next appointment. General health concerns discussed with patient. Scribe services used to formulate this note under HIPAA compliance and under [place] law mandated for scribe services. Patient aware [...] Rheumatoid arthritis. She [place] Dr. Bang [place] [facility] 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 Generalized anxiety disorder. Mood is stable on [...] is asymptomatic Eye screening. She sees her acid conditioning worker Dr. Leonardo regularly. Dental screening. She sees dentist regularly. Breast cancer screening. She is up-to-date on her mammogram. Female screening. She follows up with her astrophysics teacher for breast and pelvic exams. Colon cancer screening. She had her colonoscopy done in 2022 and is on [id number]. Immunizations. She is up-to-date on her COVID and influenza vaccinations. Screening blood work before next appointment. General health concerns discussed with patient. Scribe services used to formulate this note under HIPAA compliance and under [place] law mandated for scribe services. Patient aware [...] Rheumatoid arthritis. She sees Dr. Bang [place] [facility] 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 Generalized anxiety disorder. Mood is stable on [...] is asymptomatic Eye screening. She sees her acid conditioning worker Dr. Leonardo regularly. Dental screening. She sees dentist regularly. Breast cancer screening. She is up-to-date on her mammogram. Female screening. She follows up with her astrophysics teacher for breast and pelvic exams. Colon cancer screening. She had her colonoscopy done in 2022 and is on 03-fxdc-jfyls. Immunizations. She is up-to-date on her COVID and influenza vaccinations. Screening blood work before next appointment. General health concerns discussed with patient. Scribe services used to formulate this note under HIPAA compliance and under [place] law mandated for scribe services. Patient aware [...] Rheumatoid arthritis. [facility] [place] 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 Generalized anxiety disorder. Mood is stable on [...] is asymptomatic Eye screening. She sees her acid conditioning worker Dr. Leonardo regularly. Dental screening. She sees dentist regularly. Breast cancer screening. She is up-to-date on her mammogram. Female screening. She follows up with her astrophysics teacher for breast and pelvic exams. Colon cancer screening. She had her colonoscopy done in 2022 and is on [id number]. Immunizations. She is up-to-date on her COVID and influenza vaccinations. Screening blood work before next appointment. General health concerns discussed with patient. Scribe services used to formulate this note under HIPAA compliance and under [place] law mandated for scribe services. Patient aware [...] Rheumatoid arthritis. [place]. [place] [facility] [place] 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 Generalized anxiety disorder. Mood is stable on [...] is asymptomatic Eye screening. She sees her acid conditioning worker Dr. Leonardo regularly. Dental screening. She sees dentist regularly. Breast cancer screening. She is up-to-date on her mammogram. Female screening. She follows up with her astrophysics teacher for breast and pelvic exams. Colon cancer screening. She had her colonoscopy done in 2022 and is on [id number]. Immunizations. She is up-to-date on her COVID and influenza vaccinations. Screening blood work before next appointment. General health concerns discussed with patient. Scribe services used to formulate this note under HIPAA compliance and under [place] law mandated for scribe services. Patient aware [...] Insured Coverage Start Date Coverage End Date [facility] [address] [address] [place] [address] [phone] [id number] RAMAH, MARÍA Self - patient is the insured 0 Medical (General) History Medical History History ICD Code TB treated by ID in [facility] RA treated by [place] Bang [place] [facility] [place] [place] disease and see Dr Leonardo generalized anxiety disorder skin sensitivity Surgical History Surgery Date(Month/Year) carpal tunnel strabismus repair Gallbladder removed hernia repair
== END 2025-01-13 10:07 | disposition home or self-care (01) ==
LOC: HO.MRI 10:06
PROVIDERS: Visit Provider Internal Medicine Rheumatology
DX: M54.50 Low back pain, unspecified (principal)
CPT/HCPCS: 72148

== ENCOUNTER 2025-01-21 10:11 | Outpatient (AMB) | payer OTHER, SELFPAY ==
--- NOTE | 2025-01-21 10:20 | A.OFFVIS_ITS ---
Vital Signs 01/21/25 10:23 Height 5 ft 4 in Weight 166 lb 0.129 oz BMI 28.5 BP 140/100 H Blood Pressure Location Lt brachial Position Sitting Pulse 74 Pulse Source Pulse Oximeter Pulse Oximetry (%) 100 Oxygen Delivery Method Room Air Intake Visit Reasons: follow up Intake Note: Pt is present today for rheumatoid arthritis follow up. right wrist pain, pain in the buttocks,eyes and pelvic pain as well. Allergies erythromycin base Allergy (Verified 01/21/25 10:25) Hives etanercept [From Enbrel] Adverse Reaction (Intermediate, Verified 01/21/25 10:25) diverticulitis leflunomide Adverse Reaction (Intermediate, Verified 01/21/25 10:25) diverticulitis prednisone Adverse Reaction (Intermediate, Verified 01/21/25 10:25) Body pain HPI HPI follow up: Details: She scalp burning in scalp and tremors in extremities. She has an upcoming appointment with Neurology. She is having vaginal spasms. Constant buttocks pain with radiation to to both legs. She has seen pain management Dr. Tutu Trivedi at [facility] who will be performing C-spine cortisone injections in a few weeks. Right wrist pain limits activity MS 30 minutes Pain in feet is constant and is worse in the day. Last year she was seeing a carpet inspector finished in [place] and received 1 dose of Remicade. Labs prior to DMARD therapy revealed positive TB test but it was not discovered by patient until she saw the results on patient portal. She received 4 months of rifampin treatment through a physician at [facility] in [place]. In the past she had increased myalgias with prednisone course. She also reacted to methylprednisolone with increased joint pain. She has received cortisone injections in knee with benefit from orthopedic surgery in the past. 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 Sacroiliac joint pain Tendonitis of ankle, right Surgical History (Updated 12/24/24 @ 08:54 by Yenifer Daniel CMA) History of surgery Social History Household Members: Spouse and Family Housing: House Alcohol intake: current Alcohol intake frequency: a few times a month Patient Tobacco Use Status: Current everyday Tobacco user Tobacco use type: Cigarette Cigarettes Per Day: 10 Years Smoked: 15 years e-Cigarette/Vaping Use: Never Used service: No Current occupational status: employed 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 Good respiratory effort Skin: No lesions seen MSK: Tender right wrist with synovitis present. Tender MCPs, interphalangeal joints and PIPs bilateral hands. Tender bilateral shoulders. Tender bilateral MTPs. She has normal range of motion of upper extremities and lower extremities. No SI joint tenderness. She is tender to palpate lower buttocks region bilateral sides. Results Reviewed Results Reviewed: Date of Service: 01/13/25 Procedure(s): MR lumbar spine wo con Accession Number(s): [id number] cc: Araceli Augustin PA-C; Joshua Castellanos MD~ CLINICAL HISTORY: M54.50 - Low back pain, unspecified MR LUMBAR SPINE WITHOUT GADOLINIUM Comparison: None Findings: Minimal grade 1 retrolistheses T12 on L1, L1 on L2 and L2 on L3. No acute fracture or pathologic bone lesion. Cauda equina and conus medullaris within normal limits. T12-L1: Modic type 2 endplate changes. No significant disc displacement. Facet arthropathy. No significant spinal stenosis. Moderate right foraminal stenosis. L1-L2: Biforaminal disc protrusions and facet arthropathy. No significant spinal stenosis. Moderate bilateral foraminal stenoses. L2-L3: Biforaminal disc protrusions and facet arthropathy. No significant spinal stenosis. Mild right and moderate left foraminal stenoses. L3-L4: Moderate disc bulge and facet arthropathy. Mild spinal stenosis. Mild right and moderate left foraminal stenoses. L4-L5: Moderate disc bulge and facet arthropathy. Mild spinal stenosis. Severe bilateral foraminal stenoses, left greater than right. L5-S1: Mild disc bulge and facet arthropathy. No significant spinal stenosis. Moderate left foraminal stenosis. Visualized retroperitoneum unremarkable. Paraspinous musculature intact. IMPRESSION: 1. L3-4 and L4-5 disc bulges with mild spinal stenosis. 2. Multilevel facet arthropathy with varying degrees of foraminal stenoses, most prominent at L4-5. 3. Multilevel grade 1 spondylolistheses. No acute fracture. Assessment & Plan Assessment & Plan (1) Low back pain potentially associated with radiculopathy: Comment: Chronic bilateral lower buttocks pain with bilateral radiculopathy. She reports history of pain started with vaginal spasms radiating to sacrum then progressing to involve lower back pain radiating to legs. At this time, I do not have any etiology for her symptom of vaginal spasms. I recommended that she see Gynecology for vaginal exam. Pain is debilitating for patient and has caused her to take time off of work due to uncontrolled pain and reduced mobility. Recent MRI reveals lower lumbar spine degenerative disc disease with mild spinal stenosis, which can contribute to her lower back/buttocks pain with bilateral radiculopathy. She reports a history of SI joint arthritis with prior treatment of SI joint injections without benefit but her current pain is inferior to the SI joints on exam and less likely contributing to pain. Code(s): M54.50 - Low back pain, unspecified Category: Medical Plan: I recommend that she see pain specialist Dr. Michael at [facility] for consideration of L-spine cortisone injection as pain is debilitating for patient and she will not be able to tolerate PT. She is on gabapentin prescribed by another provider Neurology evaluation is upcoming to address neurological symptoms of tremors. I am concerned that the tremors that she is experiencing in her extremities may be a side effect of gabapentin. I will defer to Neurology for their assessment and further recommendations. I recommend PCP follow-up for chronic pain management and for further evaluation/workup of throat pain and scalp pain. I do not prescribe narcotics. Start meloxicam 15 mg daily X-ray of sacrum/coccyx and SI joints ordered for further evaluation of pathology, which will serve as baseline exams Return to clinic in a month to address rheumatoid arthritis management (2) Buttock pain: Code(s): M79.18 - Myalgia, other site Category: Medical Plan: See above (3) Rheumatoid arthritis with positive rheumatoid factor: Comment: She has developed active inflammatory arthritis on exam this visit. We discussed next steps with treatment with considering Orencia. Discussed side effects, benefits and drug monitoring. I reviewed her recent lipid panel, which was normal but patient reports she has intermittent elevation in cholesterol. I will avoid Actemra at this time. I offered her right wrist cortisone injection this visit but she is planning to have left knee cortisone injection for treatment of osteoarthritis by orthopedic surgery team tomorrow and would like to wait. She has had side effects on prednisone methylprednisolone in the past, which is why I am avoiding systemic glue corticosteroid at this time. Rheumatology history: Seropositive. RF 113. CCP>250. Diagnosed October 2020. Methotrexate 10/25 -05/2021 -d/c due to LFT elevations. 05/2021 - Humira started - ?improvement. 08/2022 Humira stopped for wrist surgery. leflunomide 04/2023- 05/2024 DC due to diverticulitis. Enbrel 05/2023 DC 06/2023 due to diverticulitis Remicade 04/2024 DC after 1 dose as patient had a positive QuantiFERON test. She reports that she had tremors and felt unwell on Remicade. History of intermittent hyperlipidemia. Prednisone causes myalgias. Methylprednisolone causes arthralgias. Code(s): M05.9 - Rheumatoid arthritis with rheumatoid factor, unspecified Category: Medical Qualifiers: Rheumatoid arthritis location: multiple sites Qualified Code(s): M05.79 - Rheumatoid arthritis with rheumatoid factor of multiple sites without organ or systems involvement Plan: Return to clinic 1 month Start meloxicam 15 mg daily. Avoid other NSAIDs while on meloxicam. Information on Orencia given to patient I will consider right wrist intra-articular cortisone injection next visit Baseline labs ordered prior to starting Orencia. If labs are okay, we will pursue PA for Orencia. Orders: Orders XR sacroiliac joint min 3V Today M79.18 - Myalgia, other site Coding Level of Care Code Est Pt Level 5 (45883) Complex EM visit Add On G2211 Diagnoses Low back pain potentially associated with radiculopathy M54.50 Buttock pain M79.18 Rheumatoid arthritis involving multiple sites with positive rheumatoid factor M05.79 Rheumatoid arthritis location: multiple sites Time Spent (min) 45
[2025-01-21 10:23] VITALS: BP 140/100; PULSE 74; O2SAT 100; BMI 28.5
--- OUTSIDE RECORDS SUMMARY | 2025-01-21 11:40 | XMS_ITS ---
Author Organization [facility] Address [address] [place] [address] Care Team Providers Care Managed Care Director Name Role Phone IKER ROBLERO PA-C Primary Care Provider Latonya Ramirez Unavailable [phone] Allergies Allergen (clinical drug ingredient) Drug/Non Drug [...] 6-10 Encounters Encounter Location Date Provider Diagnosis [facility] [address] [address] 12/05/2024 Latonya Lozano Plan Of Treatment No Information Progress Notes * MIS OLSONOB:1965 (59 yo F)Acc No.[id number]:12/05/2024 PROGRESS NOTES Patient:?MARCUS OLSON Appointment Provider:?Latonya lopez M.D. :1965???Age:59 Y???Sex:Female D ate:12/05/2024 Address:[address] [place] [address] Pcp:IKER ROBLERO PA-C Subjective: * Chief Complaints: [...] on cytologic smear of cervix (ASC-US). * Seat Builder History:?/ Para?2/2.?Sexual activity?not currently sexually active.?Last Pap Smear:?05/26/23 ASCUS, POS HRHPV (Neg 16, 18/45), 03/28/22 LGSIL, POS HRHPV (neg 16, 18/45), 11/21/17 NEG HRHPV, 2011.?Mammogram:?06/02/23 < 50% density, 02/27/19 < 50% density, 07/26/2017 normal, 07/2016 with follow up Lt Diagnostic 07/09/2016 Bx recommended.?Abnormal Pap Smear:?07/07/23 [place] Negative, 06/06/22 [place] Negative, 03/2022 LGSIL, + HRHPV.?LMP and menses?Nita 01/2017.? Control:?None.?Colonoscopy?08/2023, 1997.?Bone Density:?06/02/23.? * OB History:?Total [...] Electronic signature of Pato Lozano MD on 01/21/2025 at 11:39 AM EDT Sign off status: Pending * Appointment Provider:?Latonya Lozano M.D. Date:?12/05/2024 Generated for Renay bear/Hilton/[place]ille on:?01/21/2025 11:39 AM EDT
--- OUTSIDE RECORDS SUMMARY | 2025-01-21 11:40 | XMS_ITS | Continuity of Care Document ---
Author Organization [facility] Address [address] [facility], 3r d Floor, [address] [place] [address]- Care Team Providers Care Genomics Scientist Name Role Phone Araceli Braden Primary Care Physician Encounter [facility] Date(s): 12/12/24 - 01/11/25 [facility] [address] [facility] 3rd Floor, [address] [place] [id number] Encounter Type: Triage Allergies, Adverse Reactions, Alerts Substance Criticality Severity [...] B adult vaccine 01/17/22 Recorded SARS-CoV-2 mRNA (emsjhud-bwjb-rogbe) vax 02/02/22 Recorded SARS-CoV-2 (COVID-19) mRNA BNT-162b2 vac 07/05/21 Recorded SARS-CoV-2 (COVID-19) mRNA BNT-162b2 vac 06/24/21 Recorded SARS-CoV-2 (COVID-19) mRNA BNT-162b2 vac 03/24/21 Recorded SARS-CoV-2 (COVID-19) mRNA BNT-162b2 vac 03/03/21 Recorded tetanus/diphtheria/pertussis, acel(Tdap) 01/09/19 Recorded tetanus/diphtheria/pertussis, acel(Tdap) 06/01/15 Recorded 1Result Comment: [facility] [id number] Medications cetirizine 10 mg oral tablet 0 [...] by dept-- patient is being followed in [place], [place]. Social History Social History Type Response Smoking Status 10 or more cigarette s (1/2 pack or more)/day in last 30 days entered on: 08/19/22 Sex Sex Representation Female (finding) Patient Care team information Care Team Personnel Name: Araceli Braden Position: [facility] Outreach Member Role: PCP Address: [address] [place] [address] Primary Care [address] Telecom: Name: Terence Olvera Position: [facility] Outreach Member Role: Lifetime Consulting Physician Care Team Related Persons Name: JOSE KNOX Name: JAMES SLAUGHTER Name: JOSE OLSON Name: JESSICA OLSON Insurance Providers Guarantor name: [facility] Health Plan Information #: 1 Payer: [facility] H61 Member Number: NA Policy Number: NA Group Number: NA
--- OUTSIDE RECORDS SUMMARY | 2025-01-21 11:40 | XMS_ITS ---
Author Organization [facility] Address [address] [place] [address] Care Team Providers Care Support Staff Name Role Phone IKER ROBLEOR Unavailable [phone] REASON FOR VISIT Rx request Encounters Encounter Location Date Provider Diagnosis [place] [address] [address] 01/02/2025 IKER ROBLERO PLAN OF TREATMENT No Information Progress Notes * David OLSONOB:1965 (59 yo F)Acc No.[id number]:01/02/2025 Patient:??María OLSON :1965?Age:59 Y?Sex:Fe male Address:[address], [place] [address] * true * Date:??
--- OUTSIDE RECORDS SUMMARY | 2025-01-21 11:40 | XMS_ITS | Continuity of Care Document ---
Author Organization [facility] Address [address] [facility], [address]r d Floor, [address] [place] [address]- Care Team Providers Care Real Estate Appraiser Supervisor Name Role Phone Araceli Braden Primary Care Physician Encounter [facility] Date(s): 12/18/24 - 01/17/25 [facility] [address] [facility] 3rd Floor, [address] [place] [address] Encounter Type: Triage Allergies, Adverse Reactions, Alerts [...] B adult vaccine 01/17/22 Recorded SARS-CoV-2 mRNA (waiyhmr-owvv-hfbfu) vax 02/02/22 Recorded SARS-CoV-2 (COVID-19) mRNA BNT-162b2 vac 07/05/21 Recorded SARS-CoV-2 (COVID-19) mRNA BNT-162b2 vac 06/24/21 Recorded SARS-CoV-2 (COVID-19) mRNA BNT-162b2 vac 03/24/21 Recorded SARS-CoV-2 (COVID-19) mRNA BNT-162b2 vac 03/03/21 Recorded tetanus/diphtheria/pertussis, acel(Tdap) 01/09/19 Recorded tetanus/diphtheria/pertussis, acel(Tdap) 06/01/15 Recorded 1Result Comment: [facility] [id number] Medications cetirizine 10 mg oral tablet 0 [...] 05/13/24 Active Cigarette nicotine dependence Confirmed Active Rheumatoid factor positive Confirmed Active 1Pt cx scheduled appt. 2nd appt cx by dept-- patient is being followed in [place], [place]. Social History Social History Type Response Smoking Status 10 or more cigarette s (1/2 pack or more)/day in last 30 days entered on: 08/19/22 Sex Sex Representation Female (finding) Patient Care team information Care Team Personnel Name: Araceli Braden Position: [facility] Outreach Member Role: PCP Address: [address] [place] [address] Personal Primary Care [address] Telecom: Name: Terence Olvera Position: [facility] Outreach Member Role: Lifetime Consulting Physician Care Team Related Persons Name: JOSE KNOX Name: JAMES SLAUGHTER Name: JOSE OLSON Name: JESSICA OLSON Insurance Providers Guarantor name: [facility] [place] Health Plan Information #: 1 Payer: [employer] Member Number: NA Policy Number: NA Group Number: NA
--- OUTSIDE RECORDS SUMMARY | 2025-01-21 11:41 | XMS_ITS | Encounter Summary ---
Author Organization [facility] Address [address] [place] [address] Care Team Providers Care Facility Rehab Director Name Role Phone Araceli Augustin Primary Care Provider + Reason for Visit * Reason Onset Date Comments Advice Only 01/08/2025 Epidural opinion Encounter Details Date Type Department Care Team ([facility] st Contact Info) Description 01/08/2025 Telephone Neurosurgery [facility] [address] [facility] [address] [place] [phone] Peggy Leon MD 175 [place] [address] Advice Only (Epidural opinion) Social History Tobacco [...] AM EDT Office Visit Orthopedic Surgery - [place] [address] [address] Von Mcclure MD [address] [address] 01/22/2025 9:15 AM EDT Appointment [facility] CT Scan [address] [place] [address] 01/28/2025 9:15 AM EDT Office Visit Endocrinology - [place] [address] [place] [address] Lee Garcia MD [address] [place] [address] 04/10/2025 11:00 AM EDT Telemedicine [facility] [place] [address] [facility] [address] [place] [address] Mary Manzanares MD [address] [place] [address] documented as of this encounter Visit Diagnoses Not on filedocumented in this encounter Care Teams Facility Rehab Director Relationship Specialty Start Date End Date Araceli Augustin PA [address] [facility] [address] [place] [phone] PCP - General 11/20/24 documented as of this encounter
--- OUTSIDE RECORDS SUMMARY | 2025-01-21 11:41 | XMS_ITS | Continuity of Care Document ---
Author Organization [facility] Address [address] [facility], 3r d Floor, [address] [place] [address]- Care Team Providers Care Signal Tester Name Role Phone Araceli Braden Primary Care Physician Encounter [facility] Date(s): 12/13/24 - 01/12/25 [facility] [address], [address] [place] [id number] Encounter Type: Triage Allergies, Adverse Reactions, [...] B adult vaccine 01/17/22 Recorded SARS-CoV-2 mRNA (oapirjm-hukc-hcsxx) vax 02/02/22 Recorded SARS-CoV-2 (COVID-19) mRNA BNT-162b2 vac 07/05/21 Recorded SARS-CoV-2 (COVID-19) mRNA BNT-162b2 vac 06/24/21 Recorded SARS-CoV-2 (COVID-19) mRNA BNT-162b2 vac 03/24/21 Recorded SARS-CoV-2 (COVID-19) mRNA BNT-162b2 vac 03/03/21 Recorded tetanus/diphtheria/pertussis, acel(Tdap) 01/09/19 Recorded tetanus/diphtheria/pertussis, acel(Tdap) 06/01/15 Recorded 1Result Comment: [facility] [id number] Medications cetirizine 10 mg oral tablet 0 [...] by dept-- patient is being followed in [place], [place]. Social History Social History Type Response Smoking Status 10 or more cigarette s (1/2 pack or more)/day in last 30 days entered on: 08/19/22 Sex Sex Representation Female (finding) Patient Care team information Care Team Personnel Name: Araceli Braden Position: [facility] Outreach Member Role: PCP Address: [address] [place] [address] Primary Care [address] Telecom: Name: Terence Olvera Position: [facility] Outreach Member Role: Lifetime Consulting Physician Care Team Related Persons Name: JOSE KNOX Name: JAMES SLAUGHTER Name: JOSE OLSON Name: JESSICA OLSON Insurance Providers Guarantor name: [facility] Health Plan Information #: 1 Payer: [facility] H61 Member Number: NA Policy Number: NA Group Number: NA
--- OUTSIDE RECORDS SUMMARY | 2025-01-21 11:41 | XMS_ITS | Encounter Summary ---
Author Organization [facility] [address] Address [address] [place] [address] Care Team Providers Care Pharmacist Apprentice Name Role Phone Araceli Augustin Primary Care Provider + Encounter Details Date Type Department Care Team ([facility] st Contact Info) Description 01/03/2025 Telephone Neurosurgery [facility] [address] [place] [address] [facility] [place] Social History Tobacco Use Types Packs/Day [...] was here a week ago. Please call [phone] documented in this encounter Plan of Treatment Upcoming Encounters Date Type Department Care Team (Late st Contact Info) Description 01/22/2025 8:00 AM EDT Office Visit Orthopedic Surgery - [place] [address] [address] Von Mcclure MD 175 [facility] [address] [place] [address] 01/22/2025 9:15 AM EDT Appointment [facility] CT Scan [address] [place] [phone] 01/28/2025 9:15 AM EDT Office Visit Endocrinology - [place] [address] [place] [address] Lee Garcia MD [address] [place] [address] 04/10/2025 11:00 AM EDT Telemedicine [facility] [address] [facility] [address] [place] [phone] Mary Manzanares MD [address] [place] [address] documented as of this encounter Visit Diagnoses Not on filedocumented in this encounter Care Teams Pharmacist Apprentice Relationship Specialty Start Date End Date Araceli Augustin PA [address] [facility] [address] [place] [phone] PCP - General 11/20/24 documented as of this encounter
--- OUTSIDE RECORDS SUMMARY | 2025-01-21 11:41 | XMS_ITS ---
Author Organization [facility] Address [address] [facility] [address] [place] [address] Care Team Providers Care Sow Farm Technician Name Role Phone LINDA KHAN Primary Care Provider Hugo Plata Unavailable [phone] REASON FOR VISIT Excruciating pain Encounters Encounter Location Date Provider Diagnosis [facility] [address] [facility] [address] [place] [address] 10/21/2024 Hugo Plata Rib pain on right side R07.81 Assessments Encounter Date Diagnosis (ICD Code) Assessment Notes Treatment Notes Treatment Clinical Notes Section Notes 10/21/2024 Rib pain on right side (ICD-10 - R07.81) Plan Of Treatment No Information Progress Notes * MIS OLSONOB:1965 (59 yo F)Acc No.[id number]:10/21/2024 Patient:?MARCUS OLSON :1965???Age:59 Y???Sex:Female Address:[address] [place] [address] Subjective: * Chief Complaints: * ???Excruciating pain * Medical History:? * Surgical History:? * Hospitalization/Major Diagno stic Procedure:? * Medications:? Objective: * Vitals:? * Physical Examination:? Assessment: * Assessment: 1.?Rib pain on right side - R07.81 (Primary)??? Plan: * Treatment: * Procedure Codes:? * true * Date:? Generated for Kareeni chema/Hilton/eTransmitting on:?01/21/2025 11:40 AM EDT
--- OUTSIDE RECORDS SUMMARY | 2025-01-21 11:41 | XMS_ITS | Continuity of Care Document ---
Author Organization [facility] Address [address] [facility], 3[address] d Floor, [address] [place] [address] Care Team Providers Care Printing Specialist Name Role Phone Araceli Braden Primary Care Physician Encounter [facility] Date(s): 12/18/24 - 01/17/25 [facility] [address], [address] [place] [address] Encounter Type: Triage Allergies, Adverse [...] B adult vaccine 01/17/22 Recorded SARS-CoV-2 mRNA (ovitvab-dtqh-wndar) vax 02/02/22 Recorded SARS-CoV-2 (COVID-19) mRNA BNT-162b2 vac 07/05/21 Recorded SARS-CoV-2 (COVID-19) mRNA BNT-162b2 vac 06/24/21 Recorded SARS-CoV-2 (COVID-19) mRNA BNT-162b2 vac 03/24/21 Recorded SARS-CoV-2 (COVID-19) mRNA BNT-162b2 vac 03/03/21 Recorded tetanus/diphtheria/pertussis, acel(Tdap) 01/09/19 Recorded tetanus/diphtheria/pertussis, acel(Tdap) 06/01/15 Recorded 1Result Comment: [facility] [id number] Medications cetirizine 10 mg oral tablet 0 [...] by dept-- patient is being followed in [place], [place]. Social History Social History Type Response Smoking Status 10 or more cigarette s (1/2 pack or more)/day in last 30 days entered on: 08/19/22 Sex Sex Representation Female (finding) Patient Care team information Care Team Personnel Name: Araceli Braden Position: [facility] Outreach Member Role: PCP Address: [address] [place] [address] Personal Primary Care [address] Telecom: Name: Terence Olvera Position: [facility] Outreach Member Role: Lifetime Consulting Physician Care Team Related Persons Name: JOSE KNOX Name: JAMES SLAUGHTER Name: JOSE OLSON Name: JESSICA OLSON Insurance Providers Guarantor name: MARCUS EMERY Health Plan Information #: 1 Payer: PRIME Member Number: NA Policy Number: NA Group Number: NA
--- OUTSIDE RECORDS SUMMARY | 2025-01-21 11:41 | XMS_ITS | Data Portability ---
Author Organization [facility] Address [address] [place] [address] Care Team Providers Care Arcade Technician Name Role Phone [facility] Primary Care Provi ramses Assessment No assessment recorded. Plan of Treatment Reminders Order Date Submit Date Provider Last Modified By Organization Details Last Modified Time Details Appointments None recorded. Lab rapid strep group A, throat 2022 023 [email or web address] [facility], [address] [place] [address], [address], 3 19:09:54 streptococc us group A, culture, throat 2022 023 [email or web address] [facility], [address] [place] [address], [place], [address], 3 19:09:54 Referral emergency medicine referral - left lower facial weakness and numbness x 5 days [email or web address] Emergency Department, [address] [place], [address], 4 18:35:48 Procedures None recorded. Surgeries None recorded. Imaging None recorded. Medication Orders prednisone 20 mg tablet 2022 023 [email or web address] 5 [id number], [address] [place], [address], 4 16:05:23 benzonatate 200 mg capsule 2022 023 [email or web address] 5 [id number], [address] [place], [address], 16:05:13 Patient TargetsNo targets recorded. Patient Instructions Encounter Date Encounter Id Patient Instructions Last Modified By Organization Details Last Modified Time 12/17/2022 [id number] sore throat: car e instructions [email or web address] Not [...] care for yourself at home? Take an rbfi-xlr-ulrwaqg pain medicine. Avoid Ibuprofen, Aleve and Aspirin if . If the doctor prescribed antibiotics, take them as directed. Do not stop taking them just because you feel better. You need to take the full course of antibiotics. Be careful when taking jawy-rms-kvaoppq cold or influenza (flu) medicines and Tylenol [...] congestion worse. Not available 12/17/2022 19:07:18 05/19/2024 [id number] head or face zehra n: care instructions [...] Range : Negat aashish Not Available [facility] ([facility]) [address] [facility], [place], [address], 12/21/2022 06:07:48 12/17/1912/17/2022 rapid strep group A, throa t Unknown Analyte Normal = Negati ve Not Available [facility] [address] [place], [address], 12/17/2022 18:34:11 12/17/1912/17/2022 rapid strep group A, throa t Unknown Analyte negati ve Not Available [facility] [address] [place] [address], [address], 12/17/2022 18:34:11 Result Notes None recorded. Problems Name Problem SNOMED Code Status Onset Date Resolution Date Notes Provider Name and Address Organization Details Recorded Time Rheumatoid arthritis 55158208 Active Nella Ayla null, [place] - [facility] 4 16:05:45 Numbness of face 400634742 Active 2023 Juan F Noe, DO [address] , [place], [address] , [place] - [facility] 4 16:17:43 Anxiety 63116210 Active 2022 ANNETTE LUPICA null, [place] - [facility] 3 18:38:17 Hyperthyroidis m with Rock disease 62460280 Active 2022 ANNETTE LUPICA null, PA - [...] Name and Address Organization Details Recorded Time 072475 erythromy libby medicatio n hives Not available [...] Updated DateTime 4 162.56 cm 27.5 kg/m2 64358.7 8 g 5 97.9 [degF] 18 /min [...] Updated DateTime 3 162.56 cm 27.5 kg/m2 71616.7 8 g 97 [degF] 16 /min 98 [...] Much Tobacco Do You Smoke? 0.5 PPD [email or web address] Information not available 12/17/2022 Do You Use Any Illicit Or Recreational Drugs? No [email or web address] Information not available 12/17/2022 Have You Recently Traveled Abroad? No Information not available 12/17/2022 Do You Or Have You Ever Used Any Other Forms Of Tobacco Or Nicotine? No [email or web address] Information not available 12/17/2022 Sex: Unknown Functional Status None recorded. Mental Status None recorded. Family History Relationship Description Onset Age of this Age Resolved Age Notes LastModified by Organization Details LastModified Time Unspecified Relation Disorder of thyroid gland [email or web address] Not available 2022 18:38:50 Medical History No [...] SNOMED-CT Code Diagnosis ICD10 Code Diagnosis Note [id number] [place] [address] [place] [address] 12/17/2022 17:31:11 12/17/2022 19:17:28 Sore throat 707335913 J02.9 [id number] [place] [address] [address] 05/19/2024 15:59:19 05/19/2024 16:21:39 Numbness of face 562410219 R20.0 ER now !!! Health Concerns Section [...] - DOS ON OR BEFORE 11/05/2023 - [facility] (PP[facility]) María Phillips [id number] María Phillips 05/19/2024 1 [facility] - DOS PRIOR TO 2024 (PPO) María Phillips [id number] HA María Phillips Notes Date Note Type [...] Narendra Diaz NP [address] [place], [address], [place] - [facility] 12/17/2022 19:11:14 4 text/html a couple of weeks. twitching in face. x5 days having facial pain. pain level is 5/10. feels slight numbness on left side of mouth. patient also notices lower facial weakness as well. no chest pain. has slight head ache Juan F Noe, DO [address] [place], [address], [place] - [facility] 05/19/2024 16:42:19 OBGyn Episode No OBEpisode recorded.
--- OUTSIDE RECORDS SUMMARY | 2025-01-21 11:41 | XMS_ITS | Encounter Summary ---
Author Organization [facility] Address [address] [place] [address] Care Team Providers Care Catering Chef Name Role Phone Araceli Augustin Primary Care Provider + Reason for Visit * Reason Comments Pain Pain * Consultation (Routine) - Closed Specialty Diagnoses / Procedures Referred By Cornie strange Referred To Contact Orthopaedic Surgery Diagnoses Pain in unspecified shoulder Araceli Augustin PA [address] [facility] [address] [place] [address] Phone: tel: Yazmin Whiteside PA Phone: tel: fax: Referral ID Status Reason Start Date Expiration Date V isits Requested Visits Authorized [id number] Closed Specialty Services Required 01/02/2025 01/02/2026 1 1 Encounter Details Date Type Department Care Team (Late st Contact Info) Description 01/08/2025 9:00 AM EST Consult Orthopedic Surgery - [place] [address] [place] [address] Nichelle Archibald PA [address] [place] [address] Arthritis of right shoulder region [...] through Care Everywhere. * Rotator Cuff: Exercises (Macedonian) documented in this encounter Progress Notes * TL Dobbs - 01/08/2025 9:00 AM EST CHIEF COMPLAINT: [...] Of note she also sees pain management, [facility]. 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 [facility] MEDICATIONS DISCONTINUED/REORDERED: There are no discontinued [...] Upcoming Encounters Date Type Department Care Team ([facility] st Contact Info) Description 01/22/2025 8:00 AM EDT Office Visit Orthopedic Surgery - [place] [address] [phone] Von Mcclure MD [address] [address] 01/22/2025 9:15 AM EDT Appointment [facility] CT Scan [address] [place] [phone] 01/28/2025 9:15 AM EDT Office Visit Endocrinology [place] [address] [place] [address] Lee Garcia MD [address] [place] [address] 04/10/2025 11:00 AM EDT Telemedicine [facility] [address] [facility] [address] [place] [phone] Mary Manzanares MD [address] [place] [address] documented as of this encounter Results * [...] 2024 documented in this encounter Care Teams Catering Chef Relationship Specialty Start Date End Date Araceli Augustin PA [address] [phone] PCP - General 11/20/24 documented as of this encounter
--- OUTSIDE RECORDS SUMMARY | 2025-01-21 11:41 | XMS_ITS | Patient Health Record ---
Author Organization [facility] Address [address] [place] [address] Care Team Providers Care Film Recordist Name Role Phone IKER ROBLERO [phone] ALLERGIES Allergen (clinical drug ingredient) Drug/Non Drug [...] Performing Lab: Notes/Report: Note See Note [facility], a member of [employer] Patient Name: MARÍA PHILLIPS Date of : 1965 Reason for Exam: OTHER Exam Date: 11/18/2024 [id number] EST Report Status: Final Ordering Provider: IKER [...] to the prior neck CTA. Telerad TL ([id number]) -------- FINAL REPOR T -------- Dictated By: Dayami Walker i Dictated Date: 11/19/2024 13:40 ET Assigned Physician: Dayami Diehl Reviewed and Electronically Signed By: Dayami Diehl Signed Date: 025 13:45 ET Workstation ID: [id number] Transcribed By: Self Edit Transcribed Date: 11/19/2024 [...] Performing Lab: Notes/Report: Note See Note [facility], a member of [employer] Patient Name: MARÍA PHILLIPS Date of : 1965 Reason for Exam: DYSPHAGIA Exam Date: 12/26/2024 [id number] EST Report Status: Final Ordering Provider: BARBARA MORRISSEY PCP: IKER ROBLERO FINDINGS: Double contrast esophagram performed. COMPARISON: Esophagr am March 04, 2022 HISTORY: Patient is a 59-year-old female with history of globus sensation. Epigastric pain. 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 radiographs: 1 view chest radiograph demonstrates cardiac [...] Signed Date: 025 08:28 ET Workstation ID: [id number] Transcribed By: Self Edit Transcribed Date: 12/26/2024 13:36 ET Resident/PA/BASKETBALL COMMENTATOR: Lidia Godinez XR SHOULDER 2+ VIEWS BILAT Reviewed date:01/08/2025 05:02:44 PM Interpretation: Performing Lab: Notes/Report: Note See Note [facility], a member of [employer] Patient Name: MARÍA PHILLIPS Date of : 1965 Reason for Exam: bilateral shoulder pain Exam Date: 01/08/2025 [id number] EST Report Status: Final Ordering Provider: CAMILO [...] calcific tendinitis and narrowing of subacromial space URINALYSIS WITH REFLEX MICRO SCOPIC AND CULTURE (Not yet reviewed by provider) Interpretation: Performing Lab: Notes/Report: Specific [place] Urine 1.034 1.003-1.030 pH, Urine 6.5 5.0-8.0 pH Leukocytes, Urine Negative Negative Nitrite, Urine Negative Negative Protein, Urine Trace <=Trace mg/dL Glucose, Urine Negative Negative mg/dL Ketones, Urine Negative Negative mg/dL Urobilinogen, Urine 0.2 0.2-1.0 mg/dL Bilirubin, Urine Negative Negative Blood, Urine Negative Negative REASON FOR REFERRAL Reason [facility] Diagnosis 1 Shoulder pain, unspe cified chronicity, unspecified laterality (M25.519) Referral Organization [address] Referring Provider First Name IKER Referring Provider Last Name ANNIKA Referring Provider Speciality Preventive Medicine Referred Provider [facility]ty [facility] General Notes Letitia Cox 025 10:47:57 AM > Referral faxed over to [facility] for Bilateral shoulder pain P. [phone] Referral Priority Routine MEDICATIONS Medication SIG (Take, Route, Fr equency, Duration) Notes Start Date End Date Status Ibuprofen 600 MG 1 tablet with food o r milk Orally Three times a day for 10 days 12/03/2024 Active LORazepam 1 MG TAKE 1 TABLET BY SUSAN TH 3 TIMES A DAY IF NEEDED FOR [...] Pain in right arm (M79.601) Active confirmed [id number] Problem Pain in left arm (M79.602) Active confirmed 589843500 Problem Annual physical exam (Z00.00) Active confirmed Annual health maintenance examination (77600945) Problem Vitamin D deficiency (E55.9) Active confirmed Vitamin D defic iency (50793771) Problem Tremor (R25.1) Active confirmed 9930480 4 Problem Diabetes mellitus screening (Z13.1) Active confirmed Diabetes mellit us screening (543678099) Problem Paresthesias (R20.2) Active confirmed 09384289 Problem Chest pain in adult (R07.9) Active confirmed Chest pain (82444773) Problem Depression with anxiety (F41.8) Active confirmed 148366257 Problem 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 21715227 Problem History of latent tuberculosis (Z86.15) Active confirmed 468664603 Problem History of recent fall (Z91.81) Active confirmed 454742249 Problem Screening for thyroid disorder (Z13.29) Active confirmed Thyroid disorde r screening (136043020) Problem Lipid screening (Z13.220) Active confirmed Lipid screening (378405862) Problem Rheumatoid arthritis involving multiple sites, unspecified whether rheumatoid factor present (M06.9) Active confirmed 414670260 Problem Rheumatoid arthritis involving multiple sites with positive rheumatoid factor (M05.79) Active confirmed 215550179 Problem Anxiety, generalized (F41.1) Active confirmed 25962809 Problem Arm paresthesia, left (R20.2) Active confirmed Skin sensation disturbance (94978364) Problem Cervical spondylosis (M47.812) Active confirmed 982919842 Problem Generalized weakness (R53.1) Active confirmed 58177625 Problem 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81 ; Rheumatoid arthritis involving multiple sites with positive rheumatoid factor M05.79 ; Slipped rib syndrome M94.0 and Depression with anxiety F41.8 [address] [address] 12/04/2024 IKER ANNIKA Tremor R25.1 ; Cervical spondylosis M47.812 ; Rock's disease E06.3 ; Pain in right arm M79.601 ; Pain in left arm M79.602 ; History of recent fall Z91.81 ; Rheumatoid arthritis involving multiple sites with positive rheumatoid factor M05.79 ; Slipped rib syndrome M94.0 and Depression with anxiety F41.8 [address] [address] 10/28/2024 IKER ANNIKA Rheumatoid arthritis involving multiple sites, unspecified whether rheumatoid factor present M06.9 ; Tremor R25.1 ; Slipped rib syndrome M94.0 ; History of latent tuberculosis Z86.15 ; Depression with anxiety F41.8 and Rock's disease E06.3 [address] [address] 11/18/2024 IKER ROBLERO Tremor R25.1 ; Cervical spondylosis M47.812 ; Rock's disease E06.3 ; Pain in right arm M79.601 ; Pain in left arm M79.602 ; History of recent fall Z91.81 ; Rheumatoid arthritis involving multiple sites with positive rheumatoid factor M05.79 ; Slipped rib syndrome M94.0 and Depression with anxiety F41.8 [address] [address] 10/29/[address] [place] [address] 11/04/[address] [place] [address] 11/07/[address] [place] [address] 11/19/2024 [facility] [address] [place] [address] 12/03/[address] [place] [address] 12/13/[address] [place] [address] 12/13/2024 IKER [place] Generalized weakness R53.1 and Paresthesias R20.[address] [place] [address] 12/16/[address] [place] [address] 12/26/[address] [place] [address] 12/31/[address] [place] [address] 01/02/2025 [facility] [address] [place] [address] 01/07/2025 [facility] [address] [place] [address] 12/09/2024 [facility] [address] [place] [address] 12/13/2024 [facility] [address] [place] [address] 12/14/2024 [facility] [address] [place] [address] 12/14/2024 [facility] [address] [place] [address] 12/15/2024 [facility] [address] [place] [address] 12/18/2024 [facility] [address] [address] 01/01/2025 IKER [place] ASSESSMENTS Encounter Date Diagnosis Assessment Notes Treatment [...] Patient reports history of RA. Follows with automotive power electronics engineer Dr. Clark out of [place]. Has been treated previously with Humira, Enbrel, [...] was diagnosed by Dr. Dubon out of [place], [place]. Taking methocarbamol 750 mg 3 times [...] reviewed. Dictation completed with the use of [employer] voice recognition software, prone to medical misidentification [...] Patient reports history of RA. Follows with automotive power electronics engineer Dr. Clark out of [place]. Has been treated previously with Humira, Enbrel, [...] was diagnosed by Dr. Dubon out of [place], [place]. Taking methocarbamol 750 mg 3 times [...] reviewed. Dictation completed with the use of [employer] voice recognition software, prone to medical misidentification [...] for 11/20/2024. #Recent fall: Patient seen at [facility] ED 11/02/2024 s/p fall at work. [...] diffuse joint pain and fatigue. Follows with automotive power electronics engineer Dr. Clark out of [place], records requested and not yet available for my review. 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 States this was diagnosed by Dr. Dubon out of [place], [place]. Taking methocarbamol 750 mg 3 times [...] reviewed. Dictation completed with the use of [employer] voice recognition software, prone to medical misidentification [...] for 11/20/2024. #Recent fall: Patient seen at [facility] ED 11/02/2024 s/p fall at work. [...] diffuse joint pain and fatigue. Follows with automotive power electronics engineer Dr. Clark out of [place], records requested and not yet available for my review. 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 States this was diagnosed by Dr. Dubon out of [place], [place]. Taking methocarbamol 750 mg 3 times [...] reviewed. Dictation completed with the use of [employer] voice recognition software, prone to medical misidentification [...] for 11/20/2024. #Recent fall: Patient seen at [facility] ED 11/02/2024 s/p fall at work. [...] diffuse joint pain and fatigue. Follows with automotive power electronics engineer Dr. Clark out of [place], records requested and not yet available for my review. 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 States this was diagnosed by Dr. Dubon out of [place], [place]. Taking methocarbamol 750 mg 3 times [...] reviewed. Dictation completed with the use of [employer] voice recognition software, prone to medical misidentification [...] for 11/20/2024. #Recent fall: Patient seen at [facility] ED 11/02/2024 s/p fall at work. [...] diffuse joint pain and fatigue. Follows with automotive power electronics engineer Dr. Clark out of [place], records requested and not yet available for my review. 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 States this was diagnosed by Dr. Dubon out of [place], [place]. Taking methocarbamol 750 mg 3 times [...] reviewed. Dictation completed with the use of [employer] voice recognition software, prone to medical misidentification [...] for 11/20/2024. #Recent fall: Patient seen at [facility] ED 11/02/2024 s/p fall at work. [...] diffuse joint pain and fatigue. Follows with automotive power electronics engineer Dr. Clark out of [place], records requested and not yet available for my review. 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 States this was diagnosed by Dr. Dubon out of [place], [place]. Taking methocarbamol 750 mg 3 times [...] reviewed. Dictation completed with the use of [employer] voice recognition software, prone to medical misidentification [...] Patient reports history of RA. Follows with automotive power electronics engineer Dr. Clark out of [place]. Has been treated previously with Humira, Enbrel, [...] was diagnosed by Dr. Dubon out of [place]. Taking methocarbamol 750 mg 3 times [...] reviewed. Dictation completed with the use of [employer] voice recognition software, prone to medical misidentification [...] for 11/20/2024. #Recent fall: Patient seen at [facility] ED 11/02/2024 s/p fall at work. [...] diffuse joint pain and fatigue. Follows with automotive power electronics engineer Dr. Clark out of [place], records requested and not yet available for my review. 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 States this was diagnosed by Dr. Dubon out of [place], [place]. Taking methocarbamol 750 mg 3 times [...] reviewed. Dictation completed with the use of [employer] voice recognition software, prone to medical misidentification [...] for 11/20/2024. #Recent fall: Patient seen at [facility] ED 11/02/2024 s/p fall at work. [...] diffuse joint pain and fatigue. Follows with automotive power electronics engineer Dr. Clark out of [place], records requested and not yet available for my review. 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 States this was diagnosed by Dr. Dubon out of [place], [place]. Taking methocarbamol 750 mg 3 times [...] reviewed. Dictation completed with the use of [employer] voice recognition software, prone to medical misidentification [...] Patient reports history of RA. Follows with automotive power electronics engineer Dr. Clark out of [place]. Has been treated previously with Humira, Enbrel, [...] was diagnosed by Dr. Dubon out of [place]. Taking methocarbamol 750 mg 3 times [...] reviewed. Dictation completed with the use of [employer] voice recognition software, prone to medical misidentification [...] for 11/20/2024. #Recent fall: Patient seen at [facility] ED 11/02/2024 s/p fall at work. [...] diffuse joint pain and fatigue. Follows with automotive power electronics engineer Dr. Clark out of [place], records requested and not yet available for my review. 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 States this was diagnosed by Dr. Dubon out of [place], [place]. Taking methocarbamol 750 mg 3 times [...] reviewed. Dictation completed with the use of [employer] voice recognition software, prone to medical misidentification [...] for 11/20/2024. #Recent fall: Patient seen at [facility] ED 11/02/2024 s/p fall at work. [...] diffuse joint pain and fatigue. Follows with automotive power electronics engineer Dr. Clark out of [place], records requested and not yet available for my review. 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 States this was diagnosed by Dr. Dubon out of [place], [place]. Taking methocarbamol 750 mg 3 times [...] reviewed. Dictation completed with the use of [employer] voice recognition software, prone to medical misidentification [...] Patient reports history of RA. Follows with automotive power electronics engineer Dr. Clark out of [place]. Has been treated previously with Humira, Enbrel, [...] was diagnosed by Dr. Dubon out of [place]. Taking methocarbamol 750 mg 3 times [...] reviewed. Dictation completed with the use of [employer] voice recognition software, prone to medical misidentification [...] for 11/20/2024. #Recent fall: Patient seen at [facility] ED 11/02/2024 s/p fall at work. [...] diffuse joint pain and fatigue. Follows with automotive power electronics engineer Dr. Clark out of [place], records requested and not yet available for my review. 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 States this was diagnosed by Dr. Dubon out of [place]. Taking methocarbamol 750 mg 3 times [...] reviewed. Dictation completed with the use of [employer] voice recognition software, prone to medical misidentification [...] Patient reports history of RA. Follows with automotive power electronics engineer Dr. Clark out of [place]. Has been treated previously with Humira, Enbrel, [...] was diagnosed by Dr. Dubon out of [place]. Taking methocarbamol 750 mg 3 times [...] reviewed. Dictation completed with the use of [employer] voice recognition software, prone to medical misidentification [...] for 11/20/2024. #Recent fall: Patient seen at [facility] ED 11/02/2024 s/p fall at work. [...] diffuse joint pain and fatigue. Follows with automotive power electronics engineer Dr. Clark out of [place], records requested and not yet available for my review. 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 States this was diagnosed by Dr. Dubon out of [place]. Taking methocarbamol 750 mg 3 times [...] reviewed. Dictation completed with the use of [employer] voice recognition software, prone to medical misidentification [...] for 11/20/2024. #Recent fall: Patient seen at [facility] ED 11/02/2024 s/p fall at work. [...] diffuse joint pain and fatigue. Follows with automotive power electronics engineer Dr. Clark out of [place], records requested and not yet available for my review. 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 States this was diagnosed by Dr. Dubon out of [place]. Taking methocarbamol 750 mg 3 times [...] reviewed. Dictation completed with the use of [employer] voice recognition software, prone to medical misidentification [...] for 11/20/2024. #Recent fall: Patient seen at [facility] ED 11/02/2024 s/p fall at work. [...] diffuse joint pain and fatigue. Follows with automotive power electronics engineer Dr. Clark out of [place], records requested and not yet available for my review. 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 States this was diagnosed by Dr. Dubon out of [place]. Taking methocarbamol 750 mg 3 times [...] reviewed. Dictation completed with the use of [employer] voice recognition software, prone to medical misidentification [...] for 11/20/2024. #Recent fall: Patient seen at [facility] ED 11/02/2024 s/p fall at work. [...] diffuse joint pain and fatigue. Follows with automotive power electronics engineer Dr. Clark out of [place], records requested and not yet available for my review. 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 States this was diagnosed by Dr. Dubon out of [place]. Taking methocarbamol 750 mg 3 times [...] reviewed. Dictation completed with the use of [employer] voice recognition software, prone to medical misidentification [...] for 11/20/2024. #Recent fall: Patient seen at [facility] ED 11/02/2024 s/p fall at work. [...] diffuse joint pain and fatigue. Follows with automotive power electronics engineer Dr. Clark out of [place], records requested and not yet available for my review. 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 States this was diagnosed by Dr. Dubon out of [place], [place]. Taking methocarbamol 750 mg 3 times [...] therapist regularly. 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 Denies history of levothyroxine use. TSH WNL at 0.6. All questions answered to the patient's satisfaction. Patient demonstrates understanding of diagnosis and treatments discussed. Follow-up in , sooner should any questions/concern s arise. Case discussed with collaborating physician Velia Morrison who has reviewed the assessment/plan. Chart, medications, labs, and vital signs reviewed. Dictation completed with the use of [employer] voice recognition software, prone to medical misidentification [...] for 11/20/2024. #Recent fall: Patient seen at [facility] ED 11/02/2024 s/p fall at work. [...] diffuse joint pain and fatigue. Follows with automotive power electronics engineer Dr. Clark [place], records requested and not yet available for my review. 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 States this was diagnosed by Dr. Dubon out of [place], [place]. Taking methocarbamol 750 mg 3 times [...] reviewed. Dictation completed with the use of [employer] voice recognition software, prone to medical misidentification [...] for 11/20/2024. #Recent fall: Patient seen at [facility] ED 11/02/2024 s/p fall at work. [...] diffuse joint pain and fatigue. Follows with automotive power electronics engineer Dr. Clark out of [place], records requested and not yet available for my review. 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 States this was diagnosed by Dr. Dubon out of [place]. Taking methocarbamol 750 mg 3 times [...] reviewed. Dictation completed with the use of [employer] voice recognition software, prone to medical misidentification [...] for 11/20/2024. #Recent fall: Patient seen at [facility] ED 11/02/2024 s/p fall at work. [...] diffuse joint pain and fatigue. Follows with automotive power electronics engineer Dr. Clark out of [place], records requested and not yet available for my review. 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 States this was diagnosed by Dr. Dubon out of [place], [place]. Taking methocarbamol 750 mg 3 times [...] reviewed. Dictation completed with the use of Pre[employer] voice recognition software, prone to medical misidentification [...] Min 4 Views 11/18/2024 Comp. Metabolic Panel [id number] Anti-Mi-2 Ab (RDL)-[id number] 12/13/2024 Anti-Ro (SS-A) Ab (RDL)-[id number] 5 Anti-La (SS-B) Ab (RDL)-[id number] 5 URINALYSIS WITH REFLEX MICROSCOPIC AND C ULTURE 01/16/2025 CREATINE KINASE AND CKMB 12/13/2024 Insurance Providers Payer Name Payer Address Payer Phone Subscriber Number Group Number Insured Name Patient Relationship to Insured Coverage Start Date Coverage End Date [facility] [address] [place] [phone] [id number] [phone] María Phillips Self - patient is the insured 2020 MEDICAL (GENERAL) HISTORY Surgical History Surgery Date(Month/Year) ventral hernia repair 2017 cholecystectomy 1999 left ACL repair 1997 Right carpal tunnel release 2019 bilateral strabismus correction 1974
--- OUTSIDE RECORDS SUMMARY | 2025-01-21 11:41 | XMS_ITS | Continuity of Care Document ---
Author Organization [facility] Address [address] [facility], 3r d Floor, [address] [place] [address]- Care Team Providers Care Tutoring Manager Name Role Phone Araceli Braden Primary Care Physician Encounter [facility] Date(s): 12/10/24 - 01/09/25 [facility] [address] [facility] 3rd Floor, [address] [place] [address] Encounter Type: Triage Allergies, Adverse Reactions, [...] B adult vaccine 01/17/22 Recorded SARS-CoV-2 mRNA (hpmilny-ecvq-bvcye) vax 02/02/22 Recorded SARS-CoV-2 (COVID-19) mRNA BNT-162b2 vac 07/05/21 Recorded SARS-CoV-2 (COVID-19) mRNA BNT-162b2 vac 06/24/21 Recorded SARS-CoV-2 (COVID-19) mRNA BNT-162b2 vac 03/24/21 Recorded SARS-CoV-2 (COVID-19) mRNA BNT-162b2 vac 03/03/21 Recorded tetanus/diphtheria/pertussis, acel(Tdap) 01/09/19 Recorded tetanus/diphtheria/pertussis, acel(Tdap) 06/01/15 Recorded 1Result Comment: [facility] [phone] Medications cetirizine 10 mg oral tablet 0 [...] by dept-- patient is being followed in [place], [place]. Social History Social History Type Response Smoking Status 10 or more cigarette s (1/2 pack or more)/day in last 30 days entered on: 08/19/22 Sex Sex Representation Female (finding) Patient Care team information Care Team Personnel Name: Araceli Braden Position: [facility] Outreach Member Role: PCP Address: [address] [place] [address] [address] Telecom: Name: Terence Olvera Position: [facility] Outreach Member Role: Lifetime Consulting Physician Care Team Related Persons Name: JOSE KNOX Name: JAMES SLAUGHTER Name: JOSE OLSON Name: JESSICA OLSON Insurance Providers Guarantor name: [facility] Health Plan Information #: 1 Payer: [facility] H61 Member Number: NA Policy Number: NA Group Number: NA
--- OUTSIDE RECORDS SUMMARY | 2025-01-21 11:41 | XMS_ITS | Encounter Summary ---
Author Organization [facility] Address [address] [place] [address] Care Team Providers Care Manager Qa Name Role Phone Araceli Augustin Primary Care Provider + Reason for Visit * Reason Comments Neck Pain Follow up PT Back Pain Low back pain down b oth legs. Encounter Details Date Type Department Care Team (Late st Contact Info) Description 12/27/2024 3:00 PM EST Office Visit Neurosurgery [facility] [address] [phone] Peggy Leon MD [address] [place] [address] Cervical spondylosis (Primary Dx); Acute bilateral low [...] back and legs. The lumbar CT from [facility] show degenerative disc disease but not stenosis. Her description of paresthesias and leg shaking raise concerns for stenosis. Her workup at the [facility] did not correlate with cauda equina syndrome. She is now awaiting a lumbar spine MRI at [facility]. I be happy to review that once [...] pain is returned and she has had fhzf-yzz-xogduqm in both lower extremities for the last 2 to 3 weeks. She describes shaking in her legs when in any position for too long. Her previous lumbar spine CT was performed at [facility] which did not showstenosis. Since she had the more recent paresthesias, she was seen in the [facility] emergency room on 12/14/2022 describing the bilateral lower extremity numbness for 4 days and urinary retention. While inthe ER, a PVR was checked and was quite low not consistent with cauda equina syndrome. She tells methat her carry out clerk has ordered a lumbar spine MRI at [facility]. Past Medical History: Diagnosis Date Abdominal pain [...] tissue CARPAL TUNNEL RELEASE Right 01/20/2020 PROCEDURE: [place] NEUROPLASTY &/TRANSPOS MEDIAN NRV CARPAL TUNNE COLONOSCOPY EYE SURGERY 1974 HERNIA REPAIR 07/28/2018 Laparoscopic repair of an incarcerated incisional hernia; Dr. Keenan ORTHOPEDIC SURGERY 1996 Left ACL OTHER SURGICAL HISTORY 12/2017 Dr. 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 Imaging Lumbar spine CT at [facility] on 11/02/2024 shows degenerative disc disease [...] back and legs. The lumbar CT from [facility] show degenerative disc disease but not stenosis. Her description of paresthesias and leg shaking raise concerns for stenosis. Her workup at the [facility] ER did not correlate with cauda equina syndrome. She is now awaiting a lumbar spine MRI at [facility]. I be happy to review that once it is available and follow-up with her if there are any recommendations. Thank you for allowing us to care for your patient. Peggy Leon MD on 01/02/2025 at 5:47 PM EST CC: No ref. provider found TL [facility] documented in this encounter Plan of Treatment Upcoming Encounters Date Type Department Care Team (Late st Contact Info) Description 01/22/2025 8:00 AM EDT Office Visit Orthopedic Surgery - [place] [address] [facility] [address] [place] [address] Von Mcclure MD 175 [facility] 250 [place] [address] 01/22/2025 9:15 AM EDT Appointment [facility] Scan [address] [place] [address] 01/28/2025 9:15 AM EDT Office Visit Endocrinology [address] [phone] Lee Garcia MD [address] [place] [address] 04/10/2025 11:00 AM EDT Telemedicine [facility] [place] [address] [facility] [address] [place] [phone] Mary Manzanares MD [address] [place] [address] documented as of this encounter Visit Diagnoses Diagnosis Cervical spondylosis- Primary Cervical spondylosis without myelopathy Acute bilateral low back pain with bilateral sciatica documented in this encounter Historical Medications * This list may reflect changes made after this encounter. docusate sodium (COLACE) 100 mg capsule 12/17/2024 acetaminophen (TYLENOL) 325 mg tablet 12/17/2024 gabapentin (NEURONTIN) 300 mg capsule 12/17/2024 ibuprofen (ADVIL,MOTRIN) 600 mg tablet 12/17/2024 oxyCODONE (ROXICODONE) 5 mg immediate release tablet 12/17/2024 traZODone (DESYREL) 50 mg tablet TAKE ONE TAB NIGHTLY NEEDED FOR SLEEP. 12/10/2024 estradioL (VIVELLE-DOT) 0.0375 mg/[address] 1 patch on the skin 2 (two) times a week. 12/09/2024 01/16/2025 progesterone (PROMETRIUM) 100 mg capsule TAKE 1 CAPSULE BY MOUTH EVERY DAY AT BEDTIME FOR 90 DAYS 12/09/2024 01/16/2025 added in this encounter Care Teams Manager Qa Relationship Specialty Start Date End Date Araceli Augustin PA [address] [place] [phone] PCP - General 11/20/24 documented as of this encounter
--- OUTSIDE RECORDS SUMMARY | 2025-01-21 11:41 | XMS_ITS | Continuity of Care Document ---
Author Organization [facility] Address [address] [facility], 3[address] Floor, [address] [place] [address]- Care Team Providers Care Test Cell Technician Name Role Phone Araceli Braden Primary Care Physician Encounter [facility] Date(s): 12/18/24 - 01/17/25 [facility] [address] [place] [address] Floor, [address] [place] [address] Encounter Type: Triage Allergies, Adverse [...] B adult vaccine 01/17/22 Recorded SARS-CoV-2 mRNA (gtcmyic-cwiu-ysjfj) vax 02/02/22 Recorded SARS-CoV-2 (COVID-19) mRNA BNT-162b2 vac 07/05/21 Recorded SARS-CoV-2 (COVID-19) mRNA BNT-162b2 vac 06/24/21 Recorded SARS-CoV-2 (COVID-19) mRNA BNT-162b2 vac 03/24/21 Recorded SARS-CoV-2 (COVID-19) mRNA BNT-162b2 vac 03/03/21 Recorded tetanus/diphtheria/pertussis, acel(Tdap) 01/09/19 Recorded tetanus/diphtheria/pertussis, acel(Tdap) 06/01/15 Recorded 1Result Comment: [facility] [id number] Medications cetirizine 10 mg oral tablet 0 [...] by dept-- patient is being followed in [place], [place]. Social History Social History Type Response Smoking Status 10 or more cigarette s (1/2 pack or more)/day in last 30 days entered on: 08/19/22 Sex Sex Representation Female (finding) Patient Care team information Care Team Personnel Name: Araceli Braden Position: [facility] Outreach Member Role: PCP Address: [address] [place] [address] Personal Primary Care [address] Telecom: Name: Terence Olvera Position: [facility] Outreach Member Role: Lifetime Consulting Physician Care Team Related Persons Name: JOSE KNOX Name: JAMES SLAUGHTER Name: JOSE OLSON Name: JESSICA OLSON Insurance Providers Guarantor name: [facility] Health Plan Information #: 1 Payer: [employer]IME Member Number: NA Policy Number: NA Group Number: NA
--- OUTSIDE RECORDS SUMMARY | 2025-01-21 11:41 | XMS_ITS | Patient Health Record ---
Author Organization [facility] Address [address] [place] [address] Care Team Providers Care Marketing Proposal Specialist Name Role Phone IKER ROBLERO PA-C Primary Care Provider Unav bianca Lozano Latonya Unavailable [phone] Allergies Allergen (clinical drug ingredient) Drug/Non Drug Allergy documented on EMR Reaction Allergy Type Onset Date Status erythromycin ERYTHROMYCIN Skin Rash Drug Allergy A ctive Results Component Value Reference Range Notes Urinalysis Reviewed date:10/14/2024 01:33:35 PM Interpretation: Performing Lab: Notes/Report: PH 8.0 PROTEIN Neg GLUCOSE Neg BLOOD Neg Vitamin [id number] Reviewed date:12/14/2024 02:48:01 PM Interpretation: Performing Lab:[facility] [address], Phone - [phone], Director - MDJodry Notes/Report: Test(s) 698879-Wlt. B1, Whole Blood was developed and its performance characteristics determined by [facility]. It has not been cleared or approved by the Food and Drug Administration. Vitamin B12 621 254-8574 pg/mL Thyroxine (T4) Free, Direct- 650526 Reviewed date:12/14/2024 02:48:28 PM Interpretation: Performing Lab:[facility] [address], Phone - [phone], Director - MDJodry Notes/Report: Test(s) 679478-Xjl. B1, Whole Blood was developed and its performance characteristics determined by [facility]. It has not been cleared or approved by the Food and Drug Administration. T4,Free(Direct) 1.16 0.82-1.77 ng/dL TSH-467300 Reviewed date:12/14/2024 02:48:55 PM Interpretation: Performing Lab:[facility] [address], Phone - [phone], Director - [facility] Notes/Report: Test(s) 449542-Ffu. B1, Whole Blood was developed and its performance characteristics determined by [facility]. It has not been cleared or approved by the Food and Drug Administration. TSH 0.492 0.450-4.500 uIU/mL Triiodothyronine (T3), Free- 694119 Reviewed date:12/14/2024 02:48:08 PM Interpretation: Performing Lab:[facility] [address], Phone - [phone], Director - [facility] Notes/Report: Test(s) 276060-Cxa. B1, Whole Blood was developed and its performance characteristics determined by [facility]. It has not been cleared or approved by the Food and Drug Administration. Triiodothyronine (T3), Free 2.9 2.0-4.4 pg/mL Vitamin D, 47-Ptvdrou-772889 Reviewed date:12/14/2024 02:47:53 PM Interpretation: Performing Lab:[facility] [address], Phone - [phone], Director - [facility] Notes/Report: Test(s) 850151-Vth. B1, Whole Blood was developed and its performance characteristics determined by [facility]. It has not been cleared or approved by the Food and Drug Administration. Vitamin D, 25-Hydroxy 48.0 30.0-100.0 ng/mL Vitamin D deficiency has been defined by the [place] of Medicine and an Endocrine Society practice guideline as a level of serum 25-OH vitamin D less than 20 ng/mL (1,2). The Endocrine Society went on to further define vitamin D insufficiency as a level between 21 and 29 ng/mL (2). 1. IOM ([place] of Medicine). 2010. Dietary reference intakes for calcium and D. [place]: The National Academies Press. 2. Angelica MF, Leonel [place], Sheeba MCKENNA, et al. Evaluation, treatment, and prevention of vitamin D deficiency: an Endocrine Society clinical practice guideline. JCEM. 2010; 96(7):1911-30. Vitamin B1 (Thiamine), Blood -192468 Reviewed date:12/14/2024 02:48:18 PM Interpretation: Performing Lab:[facility] [place] [address] [facility], Phone - [phone], Director - Elsa Notes/Report: Test(s) 634541-Hom. B1, Whole Blood was developed and its performance characteristics determined by [employer]. It has not been cleared or approved by the Food and Drug Administration. Vit. B1, Whole Blood 131.3 66.5-200.0 nmol/L PDF Report Reviewed date:12/14/2024 02:47:46 PM Interpretation: Performing Lab:[facility] [place], [address] [facility], Phone - [phone], Director - Elsa Notes/Report: Test(s) 530617-Wsq. B1, Whole Blood was developed and its performance characteristics determined by [employer]. It has not been cleared or approved [...] test positive, high risk on vaginal specimen (145055808036969) Cervical high risk human papillomavirus (HPV) DNA test positive (R87.810) Active confirmed Problem Postmenopausal atrophic vaginitis (16305525) Postmenopausal atrophic vaginitis (N95.2) Active confirmed Problem Cervicovaginal cytology: Low grade squamous intraepithelial lesion (488224995) Low grade squamous intraepithelial lesion on cytologic smear of cervix (LGSIL) (R87.612) Active confirmed Problem Non-toxic single thyroid nodule (983512282) Nontoxic single thyroid nodule (E04.1) Active confirmed Problem Autoimmune thyroiditis (29254659) Autoimmune thyroiditis (E06.3) Active confirmed Problem Anxiety disorder (761220681) Anxiety disorder, unspecified (F41.9) Active confirmed Problem Epidermal cyst (009751893) Epidermal cyst (L72.0) Active confirmed Problem Rheumatoid arthritis (16341755) Rheumatoid arthritis, unspecified (M06.9) Active confirmed Problem Endometrial intraepithelial neoplasia (181927844) 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) Active confirmed Problem Postcoital bleeding (02296328) Postcoital and contact bleeding (N93.0) Active confirmed Problem Unspecified abnormal finding in specimens from female genital organs (R87.9) Active confirmed Problem Menopause (019216634) Menopausal and female climacteric states (N95.1) Active confirmed Problem Anxiety state (165237693) Anxiety state, unspecified (300.00) Active confirmed Major Vital Signs Temperature 97.4 degrees Fahrenheit 12/09/2024 Blood pressure diastolic 86 mm Hg 12/09/2024 Height 62 in 12/09/2024 Blood pressure systolic 128 mm Hg 12/09/2024 Weight 159 lbs 12/09/2024 BMI 29.08 kg/m2 12/09/2024 Encounters Encounter Location Date Provider Diagnosis [place] [address] [facility] [address] [address] 05/31/2024 Latonya Lozano [place] [address] [address] 12/05/2024 Latonya Lozano [facility] [address] [address] 10/14/2024 Latonya Lozano Encounter for gynecological examination (general) (routine) without abnormal findings Z01.419 ; Encounter for screening mammogram for malignant neoplasm of breast Z12.31 ; Personal history of other diseases of the female genital tract Z87.42 ; Cervical high risk human papillomavirus (HPV) DNA test positive R87.810 and Postmenopausal atrophic vaginitis N95.[address] [address] 12/09/2024 Latonya Lozano Other fatigue R53.83 and Menopausal and female climacteric states N95.[address] [address] 12/03/2024 Latonya Lozano [facility] [address] [address] 12/12/2024 Latonya Lozano Assessments Encounter Date Diagnosis [...] ISSUES. DALE HAS BEEN DIAGNOSED TO HAVE ELXI'S DISEASE. WORK UP FOR FATIGUE DID NOT [...] AND NEEDS TESTOSTERONE THERAPY, WILL REFER TO [facility]. WARNED PAT OF POSSIBLE VAGINAL [...] Insured Coverage Start Date Coverage End Date [facility] [address] [address] [place] [address] [id number] MARCUS OLSON Self - patient is the [...]
--- OUTSIDE RECORDS SUMMARY | 2025-01-21 11:42 | XMS_ITS | Continuity of Care Document ---
Author Organization [facility] Address [address], 3r d Floor, [address] [place] [address]- Care Team Providers Care Instrumentation And Controls Technician Name Role Phone Araceli Braden Primary Care Physician Encounter [facility] Date(s): 12/11/24 - 01/10/25 [facility] [address], [address] [place] [address] Encounter Type: Triage Allergies, Adverse Reactions, [...] B adult vaccine 01/17/22 Recorded SARS-CoV-2 mRNA (zqzosnc-idpp-iewjz) vax 02/02/22 Recorded SARS-CoV-2 (COVID-19) mRNA BNT-162b2 vac 07/05/21 Recorded SARS-CoV-2 (COVID-19) mRNA BNT-162b2 vac 06/24/21 Recorded SARS-CoV-2 (COVID-19) mRNA BNT-162b2 vac 03/24/21 Recorded SARS-CoV-2 (COVID-19) mRNA BNT-162b2 vac 03/03/21 Recorded tetanus/diphtheria/pertussis, acel(Tdap) 01/09/19 Recorded tetanus/diphtheria/pertussis, acel(Tdap) 06/01/15 Recorded 1Result Comment: [facility] [id number] Medications cetirizine 10 mg oral tablet 0 [...] by dept-- patient is being followed in [place], [place]. Social History Social History Type Response Smoking Status 10 or more cigarette s (1/2 pack or more)/day in last 30 days entered on: 08/19/22 Sex Sex Representation Female (finding) Patient Care team information Care Team Personnel Name: Araceli Braden Position: [facility] Outreach Member Role: PCP Address: [address] [place] [address] Primary [address] Telecom: Name: Terence Olvera Position: [facility] Outreach Member Role: Lifetime Consulting Physician Care Team Related Persons Name: JOSE KNOX Name: JAMES SLAUGHTER Name: JOSE OLSON Name: JESSICA OLSON Insurance Providers [facility]: [facility] Health Plan Information #: 1 Payer: [facility] H61 Member Number: NA Policy Number: NA Group Number: NA
--- OUTSIDE RECORDS SUMMARY | 2025-01-21 11:42 | XMS_ITS ---
Author Organization [facility] Address [address] [address] Care Team Providers Care Pediatrics Physician Name Role Phone LINDA KHAN Primary Care Provider Hugo Plata Unavailable [phone] REASON FOR VISIT Diagnosis Encounters Encounter Location Date Provider Diagnosis [facility] [address] [facility] [address] [place] [address] 10/24/2024 Hugo Plata Plan Of Treatment No Information Progress Notes * MIS OLSONOB:1965 (59 yo F)Acc No.[id number]:10/24/2024 Patient:?WHITNEY MARCUS :1965???Age:59 Y???Sex:Female Address:[address] [place] [address] * true * Date:? Generated for Renay bear/Hilton/eTransmitting on:?01/21/2025 11:41 AM EDT
--- OUTSIDE RECORDS SUMMARY | 2025-01-21 11:42 | XMS_ITS ---
Author Organization [facility] [employer] [facility] Address [address] [place] [address] Care Team Providers Care Echometer Engineer Name Role Phone IKER ROBLERO PA-C Primary Care Provider Unav Latonya Panda Unavailable [phone] REASON FOR VISIT LAB RESULTS Encounters Encounter Location Date Provider Diagnosis [facility] [employer] [address] [address] 12/12/2024 Latonya Lozano Plan Of Treatment No Information Progress Notes * MIS OLSONOB:1965 (59 yo F)Acc No.[id number]:12/12/2024 Patient:?MARCUS OLSON :1965???Age:59 Y???Sex:Female Address:[address] [place] [address], [address] * true * Date:? Generated for Kareeni chema/Hilton/eTransmitting on:?01/21/2025 11:42 AM EDT
--- OUTSIDE RECORDS SUMMARY | 2025-01-21 11:42 | XMS_ITS | Encounter Summary ---
Author Organization [facility] Address [address] [place] [address] Care Team Providers Care Ctrs Name Role Phone Araceli Augustin Primary Care Provider + Reason for Referral * Imaging (Routine) - Pending Review Specialty Diagnoses / Procedures Referred By Corine strange Referred To Contact Radiology Diagnoses Dysphagia, unspecified Procedures XR Esophagram Js Mahoney MD Phone: tel: fax: [facility] Referral ID Status Reason Start Date Expiration Date V isits Requested Visits Authorized [id number] Pending Review 12/16/2024 12/16/2025 1 1 Reason for Visit * Imaging (Routine) - Pending Review Specialty Diagnoses / Procedures Referred By Corine strange Referred To Contact Radiology Diagnoses Dysphagia, unspecified Procedures XR Esophagram Js Mahoney MD Phone: tel: fax: [facility] Referral ID Status Reason Start Date Expiration Date V isits Requested Visits Authorized [id number] Pending Review 12/16/2024 12/16/2025 1 1 Encounter Details Date Type Department Care Team (Latest Contact Info) Description 12/26/2024 8:11 AM EST - 12/26/2024 11:59 PM EST Hospital Encounter [facility] Xray [address] [place] [address] Dysphagia, unspecified Discharge Disposition: Home [...] docusate sodium (COLACE) 100 mg capsule 12/17/2024 gabapentin (NEURONTIN) 300 mg capsule 12/17/2024 [...] mg tablet 1 tablet (750 mg total) 4 (four) times a day if needed. oxyCODONE (ROXICODONE) 5 mg immediate release tablet 12/17/2024 sucralfate (CARAFATE) 1 gram tablet Take 1 [...] AT BEDTIME FOR 90 DAYS 12/09/2024 01/16/2025 documented as of this encounter Discharge Disposition Disposition Code Departure Means Destination Home or Self Care documented in this encounter Plan of Treatment Upcoming Encounters Date Type Department Care Team (Late st Contact Info) Description 01/22/2025 8:00 AM EDT Office Visit Orthopedic Surgery - [place] [address] [address] Von Mcclure MD [address] [address] 01/22/2025 9:15 AM EDT Appointment [facility] CT Scan [address] [place] [address] 01/28/2025 9:15 AM EDT Office Visit Endocrinology - [place] [address] [place] [address] Lee Garcia MD [address] [place] [address] 04/10/2025 11:00 AM EDT Telemedicine [facility] [place] - [place] [address] [facility] [address] [place] [address] Mary Manzanares MD [address] [place] [address] documented as of this encounter Procedures Procedure [...] Signed Date: 12/27/2024 08:28 ET Workstation ID: [id number] Transcribed By: Self Edit Transcribed Date: 12/26/2024 13:36 ET Resident/PA/MERCHANDISE SHOPPER: Lidia Escamilla Narrative 12/27/2024 8:28 AM EST FINDINGS: Double contrast esophagram performed. COMPARISON: Esophagram March 04, 2022 HISTORY: Patient is a 59-year-old female with history of globus sensation. Epigastric pain. Scooping Machine Tender radiographs: 1 view chest radiograph demonstrates cardiac [...] female with history of globus sensation.Epigastric pain. Scooping Machine Tender radiographs: 1 view chest radiograph demonstrates cardiac [...] Signed Date: 12/27/2024 08:28 ET Workstation ID: [id number] Transcribed By: Self Edit Transcribed Date: 12/26/2024 13:36 ET Resident/PA/MERCHANDISE SHOPPER: Lidia Escamilla [facility] Mahoney MD IM FLUOROSCOPY PROCEDURES Final Result documented in this encounter Visit Diagnoses Diagnosis Dysphagia, unspecified documented in this encounter Administered Medications Inactive Administered Medications - up to 3 most recent administrations Medication Order MAR Action Action Date Dose Rate Site barium sulfate (E-Z-DISK) tablet 700 mg 700 mg, oral, Once in imaging, Starting on Mon12/26/24 at 0852, For 1 dose, Swallow whole [...] mL, oral, Once in imaging, Starting on Mon12/26/24 at 0852, For 1 dose Given 12/26/2024 8:54 AM EST 90 mL sod bicarb-citric ac-simeth 2.21-1.53 gram/4 gram packet 1 packet 1 packet, oral, Once, On Mon12/26/24 at 0915, For 1 dose, Dissolve the contents of a half of a packet on the back of the tongue, wash down with 15 mL of water or juice and repeat with remaining contents. Given 12/26/2024 8:53 AM EST 1 packet documented in this encounter Care Teams Ctrs Relationship Specialty Start Date End Date Araceli Augustin PA [address] [address] PCP - General 11/20/24 documented as of this encounter
--- OUTSIDE RECORDS SUMMARY | 2025-01-21 11:42 | XMS_ITS | Encounter Summary ---
Author Organization [facility] Address [address] [place] [address] Care Team Providers Care Elevator Examiner Name Role Phone Araceli Augustin Primary Care Provider + Reason for Visit * Reason Comments Post-op Problem RT SIDE RIB PAIN S/P SUGERY ONE MONTH AGO. Encounter Details Date Type Department Care Team (Late st Contact Info) Description 01/16/2025 8:31 AM EDT - 01/16/2025 11:50 AM EDT Emergency [facility] Emergency [address] [place] [phone] Stephanie Nina, DO [address] [place] [address] Generalized abdominal pain (Primary Dx) Discharge Disposition: Home or Self [...] Sign Reading Time Taken Comments Blood Pressure 109/80 01/16/2025 9:49 AM EDT Pulse 63 01/16/2025 9:49 AM EDT Temperature 36.6 ??C (97.9 ??F) 01/16/2025 9:49 AM ED T Respiratory Rate 18 01/16/2025 9:49 AM EDT Oxygen Saturation 99% 01/16/2025 9:49 AM EDT Inhaled Oxygen Concentration - - Weight 72.6 kg (160 lb) 01/16/2025 4:41 AM EDT Height 162.6 cm (5' 4 ) 01/16/2025 4:41 AM EDT Body Mass Index 27.46 01/16/2025 4:41 AM EDT documented in this encounter Functional Status * [...] 12/17/2024 gabapentin (NEURONTIN) 300 mg capsule 12/17/2024 hydrOXYzine HCL (ATARAX) 25 mg tablet Take 1 tablet (25 mg total) by mouth every 8 (eight) hours if needed for anxiety for up to 14 days. 42 tablet 01/16/2025 01/30/2025 ibuprofen (ADVIL,MOTRIN) 600 mg tablet 12/17/2024 LORazepam [...] SLEEP. 12/10/2024 documented as of this encounter Ordered Prescriptions Prescription Sig Dispense Quantity Refills Last Filled Start Date End Date hydrOXYzine HCL (ATARAX) 25 mg tablet Take 1 tablet (25 mg total) by mouth every 8 (eight) hours if needed for anxiety for up to 14 days. 42 tablet 01/16/2025 documented in this encounter Discharge Disposition Disposition Code Departure Means Destination Comment s Home or Self Care documented in this encounter Progress Notes * Janeth Omer RN - 01/16/2025 4:45 AM EDT Pt had slipped rib surgery @ dec 17 , now here with c/o pain, It hurts when I eat, breath, I took pain medication but they stopped working . Described sharp pain on her back and abd * Vilma Blackman RN - 01/16/2025 4:36 AM EDT REPORTS RT SIDED RIB PAIN RADIATING TO ABDOMEN W/CHILLS. SURGERY FOR SLIPPED RIB SYNDROME. 600MG IBUPROFEN @0000 * Stephanie Nina DO - 01/16/2025 4:34 AM EDT Emergency Medicine Note Patient Name: María Phillips Initial Evaluation: 01/16/2025 : 1965 Patient's PCP: TL Denis Emergency Physician: Stephanie Nina DO History of Present Illness Chief Complaint: Chief Complaint Patient presents with Post-op Problem RT SIDE RIB PAIN S/P SUGERY ONE MONTH AGO. 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 Patient stated that it feels like a gas bubble in her abdomen. Patient states she feels a gurgling sound. Denies any diarrhea. However does endorse some nausea. Last bowel movement was earlier today. Denies any signs of obstruction. No alleviation of pain when she is passing gas. Denies any fever. Patient stated that this pain has been going for past couple days. ROS: I have performed a ROS with [...] tissue CARPAL TUNNEL RELEASE Right 01/20/2020 PROCEDURE: ID NEUROPLASTY &/TRANSPOS MEDIAN NRV CARPAL TUNNE COLONOSCOPY EYE SURGERY 1974 HERNIA REPAIR 07/28/2018 Laparoscopic repair of an incarcerated incisional hernia; Dr. Keenan ORTHOPEDIC SURGERY 1995 Left ACL OTHER SURGICAL HISTORY 12/2017 Dr. 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 (Patient not taking: Reported on 12/27/2024) Physical Exam ED Triage Vitals [01/16/25 0441] Temp Heart Rate Resp BP 36.3 ??C (97.3 ??F) 85 18 125/78 SpO2 Temp Source Heart Rate Source Patient Position 98 % Oral -- Sitting BP Location FiO2 (%) Right arm -- General: Pleasant, no distress, interacting appropriately Head: Normacephalic, atraumatic ENT: oral mucosa moist, neck supple, no tracheal deviation Cardiovascular: regular rate, regular rhythm, no murmurs, rubbing, gallops Respiratory: CTAB, no wheeze, rales, rhonchi Gastrointestinal: Soft, non distended, epigastric tenderness on palpation, no sign of incarcerated bowel loops. No acute surgical abdomen on exam or peritonitic signs Extremities: No limb pain or swelling, no calf tenderness Neurological: Awake and alert, no facial droop noted Skin: Warm and dry Psychiatric: Appropriate mood and thoughts Results Labs Reviewed COMPREHENSIVE METABOLIC PANEL - Abnormal Result Value Sodium 138 Potassium 4.5 Chloride 103 CO2 29 Anion Gap 6 Glucose 108 (*) BUN 9 Creatinine 0.85 eGFR 80 BUN/Creatinine Ratio 10.6 Calcium 9.7 AST (SGOT) 18 ALT (SGPT) 22 Alkaline Phosphatase 113 Total Protein 7.5 Albumin 4.1 Total Bilirubin 0.5 CBC WITH AUTO DIFFERENTIAL - Abnormal WBC 7.7 RBC 4.40 Hemoglobin 14.3 Hematocrit 41.5 MCV 93.7 MCH 32.3 (*) MCHC 34.5 RDW 12.9 Platelets 310 MPV 9.8 NRBC 0.0 NRBC Absolute 0.00 Neutrophils Relative 48.2 Lymphocytes Relative 36.7 Monocytes Relative 9.1 Eosinophils Relative 5.2 Basophils Relative 0.5 Immature Granulocytes Relative 0.3 Neutrophils Absolute 3.73 Lymphocytes Absolute 2.83 Monocytes Absolute 0.70 Eosinophils Absolute 0.40 Basophils Absolute 0.04 Immature Granulocytes Absolute 0.02 LIPASE - Normal Lipase 18 THYROID STIMULATING HORMONE WITH REFLEX TO FREE T4 AND FREE T3 - Normal TSH 2.08 CBC AND DIFFERENTIAL Narrative: The following orders were created for panel order CBC and differential. Procedure Abnormality Status --------- ------ CBC auto differential[[id number]] Abnormal Final result Please view results for these tests on the individual orders. URINALYSIS WITH REFLEX MICROSCOPIC AND CULTURE Narrative: The following orders were created for panel order Urinalysis with reflex microscopic and culture. Procedure Abnormality Status --------- ------ Urinalysis with reflex ...[[id number]] [facility] urine culture tube[[id number]] Please view results for these tests on the individual orders. URINALYSIS WITH REFLEX MICROSCOPIC AND CULTURE Abnormal Labs Reviewed COMPREHENSIVE METABOLIC PANEL - Abnormal; Notable for the following components: Result Value Glucose 108 (*) All other components within normal limits CBC WITH AUTO DIFFERENTIAL - Abnormal; Notable for the following components: MCH 32.3 (*) All other components within normal limits CT Abdomen Pelvis w Contrast Final Result No acute findings in the abdomen and pelvis. -------- FINAL REPORT -------- Dictated By: Hever Hutton Dictated Date: 01/16/2025 10:43 ET Assigned Physician: Hever Hutton Reviewed and Electronically Signed By: Hever Hutton Signed Date: 01/16/2025 10:48 ET Workstation ID: [id number] Transcribed By: Self Edit Transcribed Date: 01/16/2025 10:43 ET I have discussed the incidental/abnormal imaging and/or lab abnormalities with the patient and haveinstructed them the need for further evaluation and workup with their primary care doctor. I have provided the patient with a paper copy of the abnormality. The laboratory results, imaging results and other diagnostic exam results were reviewed in the EMR. EKG Interpretation Critical Care Time None ? Medical Decision Making Medications acetaminophen (TYLENOL) tablet 1,000 mg (1,000 mg oral Not Given 01/16/25 1007) ondansetron (PF) (ZOFRAN) injection 4 mg (4 mg intravenous Given 01/16/25 0917) aluminum-magnesium hydroxide-simethicone (MAALOX) 200-200-20 mg/5 mL suspension 30 mL (30 mL oral Given 01/16/25 0915) famotidine (PF) (PEPCID) injection 20 mg (20 mg intravenous Given 01/16/25 0917) lidocaine (XYLOCAINE) 2 % mouth solution 15 mL (15 mL Mouth/Throat Given 01/16/25 0915) sodium chloride 0.9 % flush 10 mL (10 mL intravenous Given 01/16/25 1011) iopamidoL (ISOVUE-370) 370 mg iodine /mL (76 %) injection 90 mL (90 mL intravenous Given 01/16/25 1011) ED Course as of 01/16/25 1137 Bessie Jan 16, 2025 0850 This a 59-year-old female history of slipped rib surgery, rheumatoid arthritis presented ER today for right upper quadrant pain epigastric pain for the past couple days. Some symptom of nausea with no vomiting or diarrhea. Will plan to give patient some IV Zofran, GI cocktail at this time. Given patient surgical history.Will obtain a CT abdomen pelvis to further assess for any signs of complication in her abdomen. However on exam patient does appear to be well. I suspect patient likely has gastritis or gastroenteritis of this nature. However patient states that she is worried about a hard spot in her abdomen. And her pain persist. Given her surgical history of a ventral hernia repair and slipped rib surgery repair we will obtainfurther imaging. Low suspicion for an incarcerated hernia [TC] [address] abdomen pelvis is negative. Did discuss incidental finding of liver cyst with patient. And answer her question. Patient be discharged at this time with her primary care doctor follow-up. TSH level is normal here. Patient is agreeable this plan all questions are addressed. [TC] ED Course User Index [TC] Stephanie Nina DO Clinical Impressions as of 01/16/25 1137 Generalized abdominal pain Procedures Procedures Diagnosis 1. Generalized abdominal pain Disposition Discharge ED Prescriptions Medication Sig Dispense Start Date End Date Auth. Provider hydrOXYzine HCL (ATARAX) 25 mg tablet Take 1 tablet (25 mg total) by mouth every 8 (eight) hours ifneeded for anxiety for up to 14 days. 42 tablet 01/16/2025 01/30/2025 Stephanie Nina DO Physician Attestation Stephanie Nina, 01/16/25 0835 Stephanie Nina DO 01/16/25 0850 Stephanie Nina DO 01/16/25 1137 documented in this encounter Plan of Treatment Upcoming Encounters Date Type Department Care Team (Late st Contact Info) Description 01/22/2025 8:00 AM EDT Office Visit Orthopedic Surgery [facility] [address] [phone] Von Mcclure MD [address] [address] 01/22/2025 9:15 AM EDT Appointment [facility] CT Scan [address] [place] [phone] 01/28/2025 9:15 AM EDT Office Visit Endocrinology - [address] [phone] Lee Garcia MD [address] [place] [phone] 04/10/2025 11:00 AM EDT Telemedicine [facility] for [facility] 175 [facility] [address] [place] [phone] Mary Manzanares MD [address] [place] [phone] documented as of this encounter Procedures Procedure Name Priority Date/Time Associated Diagnosis Comments URINALYSIS WITH REFLEX MICROSCOPIC AND CULTURE STAT 01/16/2025 11:08 AM EDT [facility] URINE CULTURE TUBE STAT 01/16/2025 11:08 AM EDT URINALYSIS WITH REFLEX MICROSCOPIC AND CULTURE STAT 01/16/2025 11:[address] ABDOMEN PELVIS W CONTRAST STAT 01/16/2025 10:17 AM EDT THYROID STIMULATING HORMONE WITH REFLEX TO FREE T4 AND FREE T3 STAT Add-on 01/16/2025 7:18 AM EDT CBC WITH AUTO DIFFERENTIAL STAT 01/16/2025 7:18 AM EDT CBC AND DIFFERENTIAL STAT 01/16/2025 7:18 AM EDT LIPASE STAT 01/16/2025 7:18 AM EDT COMPREHENSIVE METABOLIC PANEL STAT 01/16/2025 7:18 AM EDT documented in this encounter Results * [facility] urine culture tube (01/16/2025 11:08 AM EDT) Extra Tube Hold for add-ons. 01/16/2025 2:01 PM EDT [facility] Comment:Auto resulted. Urine Urine specimen obtained by clean catch procedure / Unknown Non-blood Collection / Unknown 01/16/2025 11:08 AM EDT 01/16/2025 12:11 PM EDT us Stephanie Nina DO LAB URINE ORDERABLES Nataliia l Result [facility] [address] [place] [address], * (ABNORMAL) Urinalysis with reflex microscopic and culture (01/16/2025 11:08 AM EDT) Specific [place] Urine 1.034(H) 1.003 - 1.030 LAB URINALYSIS - AUTOMATED METHOD 01/16/2025 12:26 PM [facility] pH, Urine 6.5 5.0 - 8.0 pH LAB URINALYSIS - AUTOMATED METHOD 01/16/2025 12:26 PM [facility] Leukocytes, Urine Negative Negative LAB URINALYSIS - AUTOMATED METHOD 01/16/2025 12:26 PM [facility] Nitrite, Urine Negative Negative LAB URINALYSIS - AUTOMATED METHOD 01/16/2025 12:26 PM [facility] Protein, Urine Trace <=Trace mg/dL LAB URINALYSIS - AUTOMATED METHOD 01/16/2025 12:26 PM [facility] Glucose, Urine Negative Negative mg/dL LAB URINALYSIS - AUTOMATED METHOD 01/16/2025 12:26 PM [facility] Ketones, Urine Negative Negative mg/dL LAB URINALYSIS - AUTOMATED METHOD 01/16/2025 12:26 PM [facility] Urobilinogen, Urine 0.2 0.2 - 1.0 mg/dL LAB URINALYSIS - AUTOMATED METHOD 01/16/2025 12:26 PM [facility] Bilirubin, Urine Negative Negative LAB URINALYSIS - AUTOMATED METHOD 01/16/2025 12:26 PM [facility] Blood, Urine Negative Negative LAB URINALYSIS - AUTOMATED METHOD 01/16/2025 12:26 PM [facility] Urine Urine specimen obtained by clean catch procedure / Unknown Non-blood Collection / Unknown 01/16/2025 11:08 AM EDT 01/16/2025 12:11 PM EDT us Stephanie Nina DO LAB URINE ORDERABLES Nataliia pedro Result [facility] [address] [facility] [place] [address], [place] [phone] * CT Abdomen Pelvis w Contrast (01/16/2025 10:17 AM EDT) Anatomical Region Laterality Modality Body Computed Tomogra phy 01/16/2025 10:4 3 AM EDT Impressions 01/16/2025 10:48 AM EDT No acute findings in the abdomen and pelvis. -------- FINAL REPORT -------- Dictated By: Hever Hutton Dictated Date: 01/16/2025 10:43 ET Assigned Physician: Hever Hutton Reviewed and Electronically Signed By: Hever Hutton Signed Date: 01/16/2025 10:48 ET Workstation ID: [id number] Transcribed By: Self Edit Transcribed Date: 01/16/2025 10:43 ET Narrative 01/16/2025 10:48 AM EDT PROCEDURE: Contrast enhanced CT of the abdomen and pelvis. ?? HISTORY: Abdominal distension. COMPARISON: 12/05/2024. TECHNIQUE: Contrast-enhanced CT of the abdomen and pelvis with coronal and sagittal reformats. IV contrast dose: 90 mL ISOVUE-370. Dose length product: ??901 mGy-cm. FINDINGS: Lung bases: Normal. Cardiac: Minimal coronary artery calcification. Liver: Mild steatosis. ??Stable cyst in the left lobe. ??Stable nonspecific irregular low-attenuation lesion in the inferior aspect of the lateral segment of the left lobe. ??Small area of focal fatty infiltration along the intersegmental fissure. ??Portal veins are patent. Biliary: Cholecystectomy. ??Prominence of the common duct and mild intrahepatic ductal dilatation, as is often seen in this postoperative setting secondary to a reservoir effect. Pancreas: Normal. Spleen: Normal. Adrenal glands: Normal. Kidneys: Normal. ??Normal appearance of the ureters. Retroperitoneum: No mass or adenopathy. Abdominal vasculature: Mild atherosclerotic calcification. Bowel/mesentery: No obstruction or adenopathy. ??No mass or ascites. ??Scattered distal colonic diverticula. ??Normal appendix. Abdominal wall: Post herniorrhaphy changes of the anterior abdominal wall in the right upper quadrant. Pelvic nodes: No adenopathy. Pelvic organs: Normal. Bones: Mild degenerative changes of the hips and sacroiliac joints. ??Diffuse degenerative changes of the spine. Procedure Note Hever Hutton MD - 01/16/2025 PROCEDURE: Contrast enhanced CT of the abdomen and pelvis. HISTORY: Abdominal distension. COMPARISON: 12/05/2024. TECHNIQUE: Contrast-enhanced CT of the abdomen and pelvis with coronal andsagittal reformats. IV contrast dose: 90 mL ISOVUE-370. Dose length product: 901 mGy-cm. FINDINGS: Lung bases: Normal. Cardiac: Minimal coronary artery calcification. Liver: Mild steatosis. Stable cyst in the left lobe. Stable nonspecificirregular low-attenuation lesion in the inferior aspect of the lateralsegment of the left lobe. Small area of focal fatty infiltration alongthe intersegmental fissure. Portal veins are patent. Biliary: Cholecystectomy. Prominence of the common duct and mildintrahepatic ductal dilatation, as is often seen in this postoperativesetting secondary to a reservoir effect. Pancreas: Normal. Spleen: Normal. Adrenal glands: Normal. Kidneys: Normal. Normal appearance of the ureters. Retroperitoneum: No mass or adenopathy. Abdominal vasculature: Mild atherosclerotic calcification. Bowel/mesentery: No obstruction or adenopathy. No mass or ascites.Scattered distal colonic diverticula. Normal appendix. Abdominal wall: Post herniorrhaphy changes of the anterior abdominal johan the right upper quadrant. Pelvic nodes: No adenopathy. Pelvic organs: Normal. Bones: Mild degenerative changes of the hips and sacroiliac joints.Diffuse degenerative changes of the spine. IMPRESSION: No acute findings in the abdomen and pelvis. -------- FINAL REPORT -------- Dictated By: Hever Hutton Dictated Date: 01/16/2025 10:43 ET Assigned Physician: Hever Hutton Reviewed and Electronically Signed By: Hever Hutton Signed Date: 01/16/2025 10:48 ET Workstation ID: [id number] Transcribed By: Self Edit Transcribed Date: 01/16/2025 10:43 ET us Stephanie Boyce Erasmo Nina DO IMG CT PROCEDURES Final R esult * Thyroid stimulating hormone with reflex to free t4 and free t3 (TSH Reflex) (01/16/2025 7:18 AM EDT) Pathologist [facility] TSH 2.08 0.40 - 4.00 mcIU/mL LAB CHEMISTRY METHOD 01/16/2025 10:37 AM EDT [facility] Blood Venous blood specimen / Unknown Venipuncture / Unknown 01/16/2025 7:18 AM EDT 01/16/2025 7:55 AM EDT us Stephanie Nina DO LAB BLOOD ORDERABLES Nataliia l Result [facility] [address] [place] [address], [place] [phone] * (ABNORMAL) CBC auto differential (01/16/2025 7:18 AM EDT) [facility] WBC 7.7 4.8 - 10.8 K/mcL LAB HEMETOLOGY METHOD 01/16/2025 8:02 AM EDT [facility] RBC 4.40 3.80 - 4.80 M/mcL LAB HEMETOLOGY METHOD 01/16/2025 8:02 AM EDT [facility] Hemoglobin 14.3 11.5 - 16.0 g/dL LAB HEMETOLOGY METHOD 01/16/2025 8:02 AM EDT [facility] Hematocrit 41.5 35.0 - 47.0 % LAB HEMETOLOGY METHOD 01/16/2025 8:02 AM EDT [facility] MCV 93.7 79.0 - 98.0 FL LAB HEMETOLOGY METHOD 01/16/2025 8:02 AM EDT [facility] MCH 32.3(H) 27.0 - 32.0 pcg LAB HEMETOLOGY METHOD 01/16/2025 8:02 AM [facility] MCHC 34.5 32.0 - 37.0 g/dL LAB HEMETOLOGY METHOD 01/16/2025 8:02 AM [facility] RDW 12.9 11.0 - 15.0 % LAB HEMETOLOGY METHOD 01/16/2025 8:02 AM [facility] Platelets 310 130 - 400 K/mcL LAB HEMETOLOGY METHOD 01/16/2025 8:02 AM [facility] MPV 9.8 7.0 - 11.0 FL LAB HEMETOLOGY METHOD 01/16/2025 8:02 AM [facility] NRBC 0.0 <1.0 % LAB HEMETOLOGY METHOD 01/16/2025 8:02 AM [facility] NRBC Absolute 0.00 <0.10 K/mcL LAB HEMETOLOGY METHOD 01/16/2025 8:02 AM [facility] Neutrophils Relative 48.2 % LAB HEMETOLOGY METHOD 01/16/2025 8:02 AM [facility] Lymphocytes Relative 36.7 % LAB HEMETOLOGY METHOD 01/16/2025 8:02 AM [facility] Monocytes Relative 9.1 % LAB HEMETOLOGY METHOD 01/16/2025 8:02 AM [facility] Eosinophils Relative 5.2 % LAB HEMETOLOGY METHOD 01/16/2025 8:02 AM [facility] Basophils Relative 0.5 % LAB HEMETOLOGY METHOD 01/16/2025 8:02 AM [facility] Immature Granulocytes Relative 0.3 % LAB HEMETOLOGY METHOD 01/16/2025 8:02 AM [facility] Neutrophils Absolute 3.73 1.50 - 7.00 K/mcL LAB HEMETOLOGY METHOD 01/16/2025 8:02 AM EDT [facility] Lymphocytes Absolute 2.83 1.00 - 5.00 K/mcL LAB HEMETOLOGY METHOD 01/16/2025 8:02 AM EDT [facility] Monocytes Absolute 0.70 0.20 - 1.00 K/mcL LAB HEMETOLOGY METHOD 01/16/2025 8:02 AM EDT [facility] Eosinophils Absolute 0.40 0.00 - 0.50 K/[facility] HEMETOLOGY METHOD 01/16/2025 8:02 AM EDT [facility] Basophils Absolute 0.04 0.00 - 0.20 K/[facility] LAB HEMETOLOGY METHOD 01/16/2025 8:02 AM EDT [facility] Immature Granulocytes Absolute 0.02 0.00 - 0.03 K/[facility] HEMETOLOGY METHOD 01/16/2025 8:02 AM EDT [facility] Blood Venous blood specimen / Unknown Venipuncture / Unknown 01/16/2025 7:18 AM EDT 01/16/2025 7:55 AM EDT us Roberto Carlos Marie MD LAB BLOOD ORDERABLES Final Resu lt [facility] [address] [place] [address], * Lipase (01/16/2025 7:18 AM EDT) Lipase 18 13 - 75 unit/L LAB CHEMISTRY METHOD 01/16/2025 8:42 AM EDT [facility] Blood Venous blood specimen / Unknown Venipuncture / Unknown 01/16/2025 7:18 AM EDT 01/16/2025 7:55 AM EDT us Roberto Carlos Marie MD LAB BLOOD ORDERABLES Final Resu lt [facility] [address] [place] [address], * (ABNORMAL) Comprehensive metabolic panel (01/16/2025 7:18 AM EDT) Sodium 138 133 - 145 mmol/L LAB CHEMISTRY METHOD 01/16/2025 8:42 AM [facility] Potassium 4.5 3.5 - 5.5 mmol/L LAB CHEMISTRY METHOD 01/16/2025 8:42 AM [facility] Chloride 103 96 - 110 mmol/L LAB CHEMISTRY METHOD 01/16/2025 8:42 AM [facility] CO2 29 21 - 32 mmol/L LAB CHEMISTRY METHOD 01/16/2025 8:42 AM [facility] Anion Gap 6 3 - 11 LAB CHEMISTRY METHOD 01/16/2025 8:42 AM [facility] Glucose 108(H) 70 - 100 mg/dL LAB CHEMISTRY METHOD 01/16/2025 8:42 AM [facility] BUN 9 5 - 25 mg/dL LAB CHEMISTRY METHOD 01/16/2025 8:42 AM [facility] Creatinine 0.85 0.50 - 1.10 mg/dL LAB CHEMISTRY METHOD 01/16/2025 8:42 AM [facility] eGFR 80 >=60 mL/min/1. 73m2 LAB CHEMISTRY METHOD 01/16/2025 8:42 AM [facility] Comment:Calculation based on the??Chronic Kidney Disease Epidemiology Collaboration (CKD-EPI) equation refit??without adjustment for race. BUN/Creatinine Ratio 10.6 LAB CHEMISTRY METHOD 01/16/2025 8:42 AM [facility] Calcium 9.7 8.5 - 10.5 mg/dL LAB CHEMISTRY METHOD 01/16/2025 8:42 AM EDT [facility] AST (SGOT) 18 10 - 42 unit/L LAB CHEMISTRY METHOD 01/16/2025 8:42 AM EDT [facility] ALT (SGPT) 22 10 - 60 unit/L LAB CHEMISTRY METHOD 01/16/2025 8:42 AM EDT [facility] Alkaline Phosphatase 113 42 - 121 unit/L LAB CHEMISTRY METHOD 01/16/2025 8:42 AM EDT [facility] Total Protein 7.5 6.0 - 8.0 g/dL LAB CHEMISTRY METHOD 01/16/2025 8:42 AM EDT [facility] Albumin 4.1 3.2 - 5.0 g/dL LAB CHEMISTRY METHOD 01/16/2025 8:42 AM EDT [facility] Total Bilirubin 0.5 0.0 - 1.4 mg/dL LAB CHEMISTRY METHOD 01/16/2025 8:42 AM EDT [facility] Blood Venous blood specimen / Unknown Venipuncture / Unknown 01/16/2025 7:18 AM EDT 01/16/2025 7:55 AM EDT [facility] Shannon Marie MD LAB BLOOD ORDERABLES Final Resu lt [facility] [address] [place] [address], documented in this encounter Visit Diagnoses Diagnosis Generalized abdominal pain- Primary Abdominal pain, generalized documented in this encounter Administered Medications Inactive Administered Medications - up to 3 most recent administrations Medication Order MAR Action Action Date Dose Rate Site aluminum-magnesium hydroxide-simethicone (MAALOX) 200-200-20 mg/5 mL suspension 30 mL 30 mL, oral, Once, On Bessie 01/16/25 at 0846, For 1 dose Given 01/16/2025 9:15 AM EDT 30 mL famotidine (PF) (PEPCID) injection 20 mg 20 mg, intravenous, Administer over 2 Minutes, Once, On Bessie 01/16/25 at 0846, For 1 dose Given 01/16/2025 9:17 AM EDT 20 mg iopamidoL (ISOVUE-370) 370 mg iodine /mL (76 %) injection 90 mL 90 mL, intravenous, Once in imaging, Starting on Bessie 01/16/25 at 1011, For 1 dose Given 01/16/2025 10:11 AM EDT 90 mL lidocaine (XYLOCAINE) 2 % mouth solution 15 mL 15 mL, Mouth/Throat, Once, On Bessie 01/16/25 at 0846, For 1 dose Given 01/16/2025 9:15 AM EDT 15 mL ondansetron (PF) (ZOFRAN) injection 4 mg 4 mg, intravenous, Once, On Bsesie 01/16/25 at 0846, For 1 dose Given 01/16/2025 9:17 AM EDT 4 mg sodium chloride 0.9 % flush 10 mL 10 mL, intravenous, Once, On Bessie 01/16/25 at 1012, For 1 dose Given 01/16/2025 10:11 AM EDT 10 mL documented in this encounter Active and Recently Administered Medications Times are shown in EDT. Scheduled Medication Order 01/14/2025 01/15/2025 01/16/2025 acetaminophen (TYLENOL) tablet 1,000 mg 1,000 mg, oral, Once, On Bessie 01/16/25 at 0946, For 1 dose 1007 (Not Given - Pr ovider: Jia Mathew RN - Reason: Patient/Resident/Agent refused - education provided ) aluminum-magnesium hydroxide-simethicone (MAALOX) 200-200-20 mg/5 mL suspension 30 mL (COMPLETED) 30 mL, oral, Once, On Bessie 01/16/25 at 0846, For 1 dose 0915 (Given - Provid er: Jia Mathew RN) famotidine (PF) (PEPCID) injection 20 mg (COMPLETED) 20 mg, intravenous, Administer over 2 Minutes, Once, On Bessie 01/16/25 at 0846, For 1 dose 0917 (Given - Provid er: Jia Mathew RN) iopamidoL (ISOVUE-370) 370 mg iodine /mL (76 %) injection 90 mL (COMPLETED) 90 mL, intravenous, Once in imaging, Starting on Bessie 01/16/25 at 1011, For 1 dose 1011 (Given - Provid er: Ronnie Bingham) lidocaine (XYLOCAINE) 2 % mouth solution 15 mL (COMPLETED) 15 mL, Mouth/Throat, Once, On Bessie 01/16/25 at 0846, For 1 dose 0915 (Given - Provid er: Jia Mathew RN) ondansetron (PF) (ZOFRAN) injection 4 mg (COMPLETED) 4 mg, intravenous, Once, On Bessie 01/16/25 at 0846, For 1 dose 0917 (Given - Provid er: Jia Mathew RN) sodium chloride 0.9 % flush 10 mL (COMPLETED) 10 mL, intravenous, Once, On Bessie 01/16/25 at 1012, For 1 dose 1011 (Given - Provid er: Ronnie Bingham) documented in this encounter Orders Medications Ordered That Kostas ht Not Have Been Administered Count Last Ordered Date First Ordered Date acetaminophen (TYLENOL) tablet 1,000 mg 1 0 01/16/2025 documented in this encounter Care Teams Elevator Examiner Relationship Specialty Start Date End Date Araceli Augustin PA [address] [place] [phone] PCP - General 11/20/24 documented as of this encounter
--- OUTSIDE RECORDS SUMMARY | 2025-01-21 11:42 | XMS_ITS | Encounter Summary ---
Author Organization [facility] Address [address] [place] [address] Care Team Providers Care Charge Accounts Audit Clerk Name Role Phone Araceli Augustin Primary Care Provider + Reason for Referral * Pain Management (Routine) - Authorized Specialty Diagnoses / Procedures Referred By Contac t Referred To Contact Pain Medicine Diagnoses Radiculopathy, cervical region Procedures Injection epidural cervical interlaminar without guidance Tutu Trivedi MD [address] [place] [address] Phone: tel: fax: Referral ID Status Reason Start Date Expiration Date V isits Requested Visits Authorized [id number] Authorized 01/16/2025 01/16/2026 1 1 Reason for Visit * Pain Management (Routine) - Authorized Specialty Diagnoses / Procedures Referred By Contac t Referred To Contact Pain Medicine Diagnoses Radiculopathy, cervical region Procedures Injection epidural cervical interlaminar without guidance Tutu Trivedi MD [address] [place] [address] Phone: tel: fax: Referral ID Status Reason Start Date Expiration Date V isits Requested Visits Authorized [id number] Authorized 01/16/2025 01/16/2026 1 1 Encounter Details Date Type Department Care Team (Latest Contact Info) Description 01/21/2025 7:59 AM EDT Hospital Encounter [facility] Pain Management [address] [place] [phone] Tutu Trivedi MD [address] [place] [address] Radiculopathy, cervical region Social History Tobacco Use Types Packs/Day Years [...] Sign Reading Time Taken Comments Blood Pressure 129/91 01/21/2025 8:09 AM EDT Pulse 79 01/21/2025 8:09 AM EDT Temperature 36.1 ??C (97 ??F) 01/21/2025 8:09 AM EDT Respiratory Rate 16 01/21/2025 8:09 AM EDT Oxygen Saturation 99% 01/21/2025 8:09 AM EDT Inhaled Oxygen Concentration - - Weight 72.6 kg (160 lb) 01/21/2025 8:18 AM EDT Height 162.6 cm (5' 4 ) 01/21/2025 8:18 AM EDT Body Mass Index 27.46 01/21/2025 8:18 AM EDT documented in this encounter Functional [...] Tracee Cassidy RN documented in this encounter Plan of Treatment Upcoming Encounters Date Type Department Care Team (Late st Contact Info) Description 01/22/2025 8:00 AM EDT Office Visit Orthopedic Surgery [facility] [address] [facility] [address] [place] [phone] Von Mcclure MD [address] [facility] [address] [place] [address] 01/22/2025 9:15 AM EDT Appointment [facility] CT Scan [address] [place] [phone] 01/28/2025 9:15 AM EDT Office Visit Endocrinology [address] [phone] Lee Garcia MD [address] [place] [phone] 04/10/2025 11:00 AM EDT Telemedicine [facility] [address] [facility] [address] [place] [phone] Mary Manzanares MD [address] [place] [phone] Scheduled Orders Name Type Priority Associated Diagnoses Orde r Schedule Injection epidural cervical interlaminar without guidance Procedures Routine Radiculopathy, cervical region Once for 1 Occurrences starting 01/21/2025 until 01/21/2025 documented as of this encounter Visit Diagnoses Diagnosis Radiculopathy, cervical region Brachial neuritis or radiculitis nos documented in this encounter Discontinued Medications Medication Sig Discontinue Reason Start Date End Da te progesterone (PROMETRIUM) 100 mg capsule TAKE 1 CAPSULE BY MOUTH EVERY DAY AT BEDTIME FOR 90 DAYS 12/09/2024 01/16/2025 estradioL (VIVELLE-DOT) 0.0375 mg/[address] 1 patch on the skin 2 (two) times a week. 12/09/2024 01/16/2025 documented as of this encounter Care Teams Charge Accounts Audit Clerk Relationship Specialty Start Date End Date Araceli Augustin PA [address] [place] [phone] PCP - General 11/20/24 documented as of this encounter
--- OUTSIDE RECORDS SUMMARY | 2025-01-21 11:42 | XMS_ITS | Patient Health Record ---
Author Organization [facility] Address [address] [place] [address] Care Team Providers Care Java Flex Developer Name Role Phone DUDLEYUlices LINDA Primary Care Provider SharifcarlosHugo brumfield Unavailable [phone] Allergies Allergen (clinical drug ingredient) Drug/Non Drug Allergy documented on EMR Reaction Allergy Type Onset Date Status azithromycin Azithromycin Unknown Drug Allergy A ctive clindamycin Clindamycin Unknown Drug Allergy Act aashish Results Component Value Reference Range Notes XR CERVICAL SPINE 4-5 VIEWS Reviewed date:11/21/2024 07:59:09 AM Interpretation: Performing Lab: Notes/Report: Note See Note [facility], a member of [employer] Patient Name: MARÍA OLSON Date of : 1965 Reason for Exam: OTHER Exam Date: 11/18/2024 [id number] EST Report Status: Final Ordering Provider: IKER [...] to the prior neck CTA. [place] ([id number]) -------- FINAL REPOR T -------- Dictated By: Dayami Walker i Dictated Date: 11/19/2024 13:40 ET Assigned Physician: Dayami Diehl Reviewed and Electronically Signed By: Dayami Diehl Signed Date: 025 13:45 ET Workstation ID: [id number] Transcribed By: Self Edit Transcribed Date: 11/19/2024 13:40 ET CBC With Differential/Platel et-[id number] Reviewed date:07/30/2024 07:54:24 AM Interpretation: Performing Lab:[facility], [address] [place] [address], Phone - [phone], Director - Elsa Notes/Report: WBC 5.4 3.4-10.8 x10E3/uL RBC 4.58 [...] Immature Grans (Abs) 0.0 0.0-0.1 x10E3/uL TSH+Free [id number] Reviewed date:07/30/2024 07:54:27 AM Interpretation: Performing Lab:[facility], [address] [place] [address], Phone - [phone], Director - Jennifery Notes/Report: TSH 0.365 0.450-4.500 uIU/mL T4,Free(Direct) 1.20 0.82-1.77 ng/dL Lipid Panel-[id number] Reviewed date:07/30/2024 03:17:56 PM Interpretation: Performing Lab:[facility], [address] [place] [address], Phone - [phone], Director - dry Notes/Report: Cholesterol, Total 266 100-199 mg/dL Triglycerides 102 0-149 mg/dL HDL Cholesterol 82 >39 mg/dL VLDL Cholesterol Corby 17 5-40 mg/dL LDL Chol Calc ([facility]) 167 0-99 mg/dL Comp. Metabolic Panel (14)-3 Reviewed date:07/30/2024 07:54:38 AM Interpretation: Performing Lab:[facility], [address] [place] [address], Phone - [phone], Director - Jennifery Notes/Report: Glucose 92 70-99 mg/dL BUN 5 [...] 0-40 IU/L ALT (SGPT) 23 0-32 IU/L Lipid Panel-[id number] Reviewed date:09/09/2024 12:30:11 PM Interpretation: Performing Lab:[facility], [address] [place] [address], Phone - [phone], Director - Elsa Notes/Report: Cholesterol, Total 269 100-199 mg/dL Triglycerides 73 0-149 mg/dL HDL Cholesterol 96 >39 mg/dL VLDL Cholesterol Corby 12 5-40 mg/dL LDL Chol Calc ([facility]) 161 0-99 mg/dL Reason For Referral Reason Evaluation and manag ement - Dr New Diagnosis 1 Sprain of ribs, init ial encounter (S23.41XA) Referral Organization [facility] Referring Provider First Name LINDA Referring Provider Last Name [facility] Referring Provider Speciality Internal edicine Referred Provider Specialty Physical Med icine General Notes Referral faxed to Raoul ramez Physical Medicine - Office will call patient for scheduling.Bk Latraya 08/21/2024 04:24:37 PM > Referral Priority Routine Reason Evaluation and manag ement Diagnosis 1 Sprain of ribs, init ial encounter (S23.41XA) Referral Organization [facility] Referring Provider First Name LINDA Referring Provider Last Name DUDLEY Referring Provider Speciality Internal edicine Referred Provider Specialty Physical Med icine and Rehabilitation General Notes Referral sent to Srinivas sarah Physiatry - Office will call patient for scheduling., Leah Bourgeois 08/27/2024 11:24:16 AM > Referral Priority Routine Reason Evaluation and manag ement Diagnosis 1 Sprain of ribs, init ial encounter (S23.41XA) Referral Organization [facility] Referring Provider First Name LINDA Referring Provider Last Name [facility] Referring Provider Speciality Internal edicine Referred Provider Specialty Pulmonology General Notes Referral sent to Tom angulo Pulmonary - Office will call patient for scheduling.Bk Latraya 08/27/2024 04:11:52 PM > Referral Priority Routine Reason Please evaluate and treat Diagnosis 1 Spondylolisthesis, l umbar region (M43.16) Referral Organization [facility] Referring Provider First Name Hugo Referring Provider Last Name Sherlyn Referred Provider Specialty Orthopedic S urgery General Notes Referral faxed to Dr Clive Ross per patient's request at [phone]., Adelita Cerrato 10/03/2024 11:16:33 AM > Referral [...] W/U Status Risk Notes Problem Autoimmune thyroiditis (21256231) Autoimmune thyroiditis (E06.3) Active confirmed Problem Vitamin deficiency (13313724) Vitamin deficiency, unspecified (E56.9) Active confirmed Problem Mixed hyperlipidemia (933076637) Mixed hyperlipidemia (E78.2) Active confirmed Problem Tobacco user (038035377) Nicotine dependence, cigarettes, uncomplicated (F17.210) Active confirmed Problem Generalized anxiety disorder (01053615) Generalized anxiety disorder (F41.1) Active confirmed Problem Chronic sinusitis (99228655) Chronic sinusitis, unspecified (J32.9) Active confirmed Problem Rheumatoid arthritis (40409077) Other rheumatoid arthritis with rheumatoid factor of unspecified site (M05.80) Active confirmed Problem Acquired spondylolisthesis (391314725) Spondylolisthesis , lumbar region (M43.16) Active confirmed Problem Solitary sacroiliitis (255763994) Sacroiliitis, not elsewhere classified (M46.1) Active confirmed Problem Solitary pulmonary nodule (215677187) Solitary pulmonary nodule (R91.1) Active confirmed Vital Signs Heart Rate 75 /min 09/24/2024 Temperature 97.4 degrees Fahrenheit 09/24/2024 Blood pressure diastolic 76 mm Hg 09/24/2024 Oximetry 98 % 09/24/2024 Height 5'4 in 09/24/2024 Blood pressure systolic 130 mm Hg 09/24/2024 Weight 164 lbs 09/24/2024 BMI 28.15 kg/m2 09/24/2024 Encounters Encounter Location Date Provider Diagnosis [address] [address] 07/29/2024 MCKEON GUL Other rheumatoid arthritis with rheumatoid factor of unspecified site M05.80 ; Latent tuberculosis Z22.7 ; Personal history of COVID-19 Z86.16 ; Generalized anxiety disorder F41.1 ; Nicotine dependence, cigarettes, uncomplicated F17.210 ; Tobacco abuse counseling Z71.6 ; Solitary pulmonary nodule R91.1 ; Autoimmune thyroiditis E06.3 and Acute sinusitis, unspecified J01.[address] [address] 08/16/2024 Ghadeer Mazloum Bilateral temporomandibular joint disorder, unspecified M26.603 ; Chronic sinusitis, unspecified J32.9 and Mixed hyperlipidemia E78.[address] [address] 08/21/2024 MCKEONNOREEN BUCKNERL Sprain of ribs, init ial encounter S23.41XA [address] [place] [address] 09/24/2024 Ghadeer Mazloum Intercostal pain R07 .82 and Sacroiliitis, not elsewhere classified M46.1 [facility] [address] [place] [address] 07/16/2024 [facility] [address] [place] [address] 07/29/2024 [facility] [address] [place] [address] 07/30/2024 [facility] Mixed hyperlipidemia E78.2 [facility] [address] [place] [address] 08/07/[address] [place] [address] 08/19/[address] [place] [address] 08/20/[address] [place] [address] 08/21/2024 MCKEON GUL Sprain of ribs, init ial encounter S23.41XA [facility] [address] [place] [address] 08/28/[address] [place] [address] 09/02/[address] [place] [address] 09/04/2024 MCKEON GUL Left upper quadrant pain R10.12 and Sprain of ribs, initial encounter S23.41XA [facility] [address] [place] [address] 09/16/2024 MCKEON GUL Left upper quadrant pain R10.[address] [place] [address] 10/31/2024 [facility] [address] [place] [address] 07/31/2024 MCKEON GUL Weakness R53.1 and L eft upper quadrant pain R10.12 [facility] [address] [place] [address] 08/14/2024 [facility] [address] [place] [address] 08/20/2024 [facility] [address] [place] [address] 08/20/2024 [facility] [address] [place] [address] 08/20/2024 Hugo [facility] [address] [place] [address] 08/22/2024 [facility] [address] [place] [address] 08/22/2024 [facility] [address] [place] [address] 08/22/2024 [facility] [address] [place] [address] 08/22/2024 [facility] [address] [place] [address] 08/22/2024 [facility] [address] [place] [address] 08/23/2024 [facility] [address] [place] [address] 08/23/2024 [facility] [address] [place] [address] 08/23/2024 [facility] [address] [place] [address] 08/23/2024 MCKEON GUL [facility] [address] [place] [address] 08/23/2024 [facility] [address] [facility] [place] [address] 08/26/2024 MCKEON L [facility] [address] [place] [address] 08/26/2024 [facility] [address] [place] [address] 08/27/2024 [facility] [address] [place] [address] 08/27/2024 [facility] [address] [place] [address] 08/27/2024 [facility] [address] [place] [address] 08/27/2024 [facility] [address] [place] [address] 08/28/2024 [facility] [address] [place] [address] 08/28/2024 [facility] [address] [place] [address] 08/28/2024 [facility] [address] [place] [address] 08/28/2024 [facility] [address] [place] [address] 08/28/2024 [facility] [address] [place] [address] 08/28/2024 [facility] [address] [place] [address] 08/28/2024 [facility] [address] [place] [address] 08/28/2024 [facility] [address] [place] [address] 08/28/2024 [facility] [address] [place] [address] 08/28/2024 [facility] [address] [place] [address] 08/28/2024 [facility] [address] [place] [address] 08/30/2024 [facility] [address] [place] [address] 09/02/2024 MCKEON [facility] Left upper quadrant pain R10.12 [facility] [address] [place] [address] 09/03/2024 [facility] [address] [place] [address] 09/04/2024 MCKEON [facility] Vitamin deficiency, unspecified E56.9 [facility] [address] [place] [address] 09/04/2024 MCKEON GUL Encounter for screen ing mammogram for malignant neoplasm of breast Z12.31 [facility] [address] [place] [address] 09/05/2024 [facility] [address] [place] [address] 09/06/2024 [facility] [address] [place] [address] 09/09/2024 [facility] [address] [place] [address] 09/11/2024 [facility] [address] [facility] [place] [address] 09/17/2024 [facility] [address] [facility] [place] [address] 09/17/2024 [facility] [address] [place] [address] 09/17/2024 [facility] [address] [place] [address] 09/18/2024 [facility] [address] [place] [address] 09/19/2024 [facility] [address] [place] [address] 09/19/2024 [facility] [address] [facility] [place] [address] 09/25/2024 [facility] [address] [place] [address] 09/26/2024 [facility] [address] [facility] [place] [address] 09/30/2024 [facility] [address] [facility] [place] [address] 10/01/2024 [facility] [address] [facility] [place] [address] 10/01/2024 [facility] [address] [place] [address] 10/07/2024 [facility] [address] [place] [address] 10/07/2024 [facility] [address] [place] [address] 10/10/2024 [facility] [address] [place] [address] 10/21/2024 Hugo Olguincarlosoctaviano Rib pain on right si de R07.81 [facility] [address] [place] [address] 10/24/2024 Hugo Plata Assessments Encounter Date Diagnosis (ICD Code) Assessment Notes Treatment Notes Treatment Clinical Notes Section Notes 07/29/2024 Other rheumatoid arthritis with rheumatoid factor of unspecified site (ICD-10 - M05.80) María is a 59-year-old lady with rheumatoid arthritis, generalized anxiety disorder here to establish care. Plan is as follows: Rheumatoid arthritis. She sees Dr. Bang at [facility]. 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 Generalized anxiety disorder. Mood is stable [...] is asymptomatic Eye screening. She sees her restoration ecologist Dr. Leonardo regularly. Dental screening. She sees dentist regularly. Breast cancer screening. She is up-to-date on her mammogram. Female screening. She follows up with her rn wellness for breast and pelvic exams. Colon cancer screening. She had her colonoscopy done in 2022 and is on 90-uvch-krusy. Immunizations. She is up-to-date on her COVID and influenza vaccinations. Screening blood work before next appointment. General health concerns discussed with patient. Scribe services used to formulate this note under HIPAA compliance and under [place] law mandated for scribe services. Patient aware [...] Rheumatoid arthritis. She sees Dr. Bang at [facility]. 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 Generalized anxiety disorder. Mood is stable [...] is asymptomatic Eye screening. She sees her restoration ecologist Dr. Leonardo regularly. Dental screening. She sees dentist regularly. Breast cancer screening. She is up-to-date on her mammogram. Female screening. She follows up with her rn wellness for breast and pelvic exams. Colon cancer screening. She had her colonoscopy done in 2022 and is on 79-ceob-sujrz. Immunizations. She is up-to-date on her COVID and influenza vaccinations. Screening blood work before next appointment. General health concerns discussed with patient. Scribe services used to formulate this note under HIPAA compliance and under [place] law mandated for scribe services. Patient aware [...] Rheumatoid arthritis. She sees Dr. Bang at [facility]. 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 Generalized anxiety disorder. Mood is stable [...] is asymptomatic Eye screening. She sees her restoration ecologist Dr. Leonardo regularly. Dental screening. She sees dentist regularly. Breast cancer screening. She is up-to-date on her mammogram. Female screening. She follows up with her rn wellness for breast and pelvic exams. Colon cancer screening. She had her colonoscopy done in 2022 and is on 35-dwec-jmomr. Immunizations. She is up-to-date on her COVID and influenza vaccinations. Screening blood work before next appointment. General health concerns discussed with patient. Scribe services used to formulate this note under HIPAA compliance and under [place] law mandated for scribe services. Patient aware [...] Rheumatoid arthritis. She sees Dr. Bang at [facility]. 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 Generalized anxiety disorder. Mood is stable [...] is asymptomatic Eye screening. She sees her restoration ecologist Dr. Leonardo regularly. Dental screening. She sees dentist regularly. Breast cancer screening. She is up-to-date on her mammogram. Female screening. She follows up with her rn wellness for breast and pelvic exams. Colon cancer screening. She had her colonoscopy done in 2022 and is on 99-usun-ovyrj. Immunizations. She is up-to-date on her COVID and influenza vaccinations. Screening blood work before next appointment. General health concerns discussed with patient. Scribe services used to formulate this note under HIPAA compliance and under [place] law mandated for scribe services. Patient aware [...] Rheumatoid arthritis. She sees Dr. Bang at [facility]. 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 Generalized anxiety disorder. Mood is stable [...] is asymptomatic Eye screening. She sees her restoration ecologist Dr. Leonardo regularly. Dental screening. She sees dentist regularly. Breast cancer screening. She is up-to-date on her mammogram. Female screening. She follows up with her rn wellness for breast and pelvic exams. Colon cancer screening. She had her colonoscopy done in 2022 and is on 86-ckio-ooatl. Immunizations. She is up-to-date on her COVID and influenza vaccinations. Screening blood work before next appointment. General health concerns discussed with patient. Scribe services used to formulate this note under HIPAA compliance and under [place] law mandated for scribe services. Patient aware [...] Rheumatoid arthritis. She sees Dr. Bang at [facility]. 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 Generalized anxiety disorder. Mood is stable [...] is asymptomatic Eye screening. She sees her restoration ecologist Dr. Leonardo regularly. Dental screening. She sees dentist regularly. Breast cancer screening. She is up-to-date on her mammogram. Female screening. She follows up with her rn wellness for breast and pelvic exams. Colon cancer screening. She had her colonoscopy done in 2022 and is on 38-vtmy-vjakk. Immunizations. She is up-to-date on her COVID and influenza vaccinations. Screening blood work before next appointment. General health concerns discussed with patient. Scribe services used to formulate this note under HIPAA compliance and under [place] law mandated for scribe services. Patient aware [...] Rheumatoid arthritis. She sees Dr. Bang at [facility]. 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 Generalized anxiety disorder. Mood is stable [...] is asymptomatic Eye screening. She sees her restoration ecologist Dr. Leonardo regularly. Dental screening. She sees dentist regularly. Breast cancer screening. She is up-to-date on her mammogram. Female screening. She follows up with her rn wellness for breast and pelvic exams. Colon cancer screening. She had her colonoscopy done in 2022 and is on 73-aqau-lzdmq. Immunizations. She is up-to-date on her COVID and influenza vaccinations. Screening blood work before next appointment. General health concerns discussed with patient. Scribe services used to formulate this note under HIPAA compliance and under [place] law mandated for scribe services. Patient aware [...] Rheumatoid arthritis. She sees Dr. Bang at [facility]. 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 Generalized anxiety disorder. Mood is stable [...] is asymptomatic Eye screening. She sees her restoration ecologist Dr. Leonardo regularly. Dental screening. She sees dentist regularly. Breast cancer screening. She is up-to-date on her mammogram. Female screening. She follows up with her rn wellness for breast and pelvic exams. Colon cancer screening. She had her colonoscopy done in 2022 and is on 47-rgab-uhmck. Immunizations. She is up-to-date on her COVID and influenza vaccinations. Screening blood work before next appointment. General health concerns discussed with patient. Scribe services used to formulate this note under HIPAA compliance and under [place] law mandated for scribe services. Patient aware [...] Rheumatoid arthritis. She sees Dr. Bang at [facility]. 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 Generalized anxiety disorder. Mood is stable [...] is asymptomatic Eye screening. She sees her restoration ecologist Dr. Leonardo regularly. Dental screening. She sees dentist regularly. Breast cancer screening. She is up-to-date on her mammogram. Female screening. She follows up with her rn wellness for breast and pelvic exams. Colon cancer screening. She had her colonoscopy done in 2022 and is on [id number]. Immunizations. She is up-to-date on her COVID and influenza vaccinations. Screening blood work before next appointment. General health concerns discussed with patient. Scribe services used to formulate this note under HIPAA compliance and under [place] law mandated for scribe services. Patient aware [...] Insured Coverage Start Date Coverage End Date [facility] [address] [address] [place] [phone] [id number] RAMAH, MARÍA Self - patient is the insured 0 Medical (General) History Medical History History ICD Code TB treated by ID in [facility] RA treated by DR Bang at [facility] eye disease and see Dr Leonardo generalized anxiety disorder skin sensitivity Surgical History Surgery Date(Month/Year) carpal tunnel strabismus repair Gallbladder removed hernia repair
--- OUTSIDE RECORDS SUMMARY | 2025-01-21 11:42 | XMS_ITS | Continuity of Care Document ---
Author Organization [facility] Address [address] [facility], [address]r d Floor, [address] [place] [id number]- Care Team Providers Care 911 Emergency Services Dispatcher Name Role Phone Araceli Braden Primary Care Physician Encounter [facility] Date(s): 12/18/24 - 01/17/25 [facility] [address], [address] [place] [id number] Encounter Type: Triage Allergies, Adverse [...] B adult vaccine 01/17/22 Recorded SARS-CoV-2 mRNA (ypzefwz-idgy-znkms) vax 02/02/22 Recorded SARS-CoV-2 (COVID-19) mRNA BNT-162b2 vac 07/05/21 Recorded SARS-CoV-2 (COVID-19) mRNA BNT-162b2 vac 06/24/21 Recorded SARS-CoV-2 (COVID-19) mRNA BNT-162b2 vac 03/24/21 Recorded SARS-CoV-2 (COVID-19) mRNA BNT-162b2 vac 03/03/21 Recorded tetanus/diphtheria/pertussis, acel(Tdap) 01/09/19 Recorded tetanus/diphtheria/pertussis, acel(Tdap) 06/01/15 Recorded 1Result Comment: [facility] [id number] Medications cetirizine 10 mg oral tablet 0 [...] by dept-- patient is being followed in [place], [place]. Social History Social History Type Response Smoking Status 10 or more cigarette s (1/2 pack or more)/day in last 30 days entered on: 08/19/22 Sex Sex Representation Female (finding) Patient Care team information Care Team Personnel Name: Araceli Braden Position: [facility] Outreach Member Role: PCP Address: [address] [place] [address] Personal Primary Care [address] Telecom: Name: Terence Olvera Position: [facility] Outreach Member Role: Lifetime Consulting Physician Care Team Related Persons Name: JOSE KNOX Name: JAMES SLAUGHTER Name: JOSE OLSON Name: JESSICA OLSON Insurance Providers Guarantor name: MARCUS RINDGE Health Plan Information #: 1 Payer: PRIME Member Number: NA Policy Number: NA Group Number: NA
--- OUTSIDE RECORDS SUMMARY | 2025-01-21 11:42 | XMS_ITS | Continuity of Care Document ---
Author Organization [facility] Address [address] [facility], 3r d Floor, [address] [place] [phone] Care Team Providers Care Analytical Scientist Name Role Phone Araceli Braden Primary Care Physician Encounter [facility] Date(s): 12/09/24 - 01/08/25 [facility] [address] [employer] [address] Floor, [address] [place] [id number] Attending Physician: Yony Parr Admitting Physician: Yony Parr Referring Physician: AdmtrYony Encounter Type: Triage Allergies, Adverse Reactions, Alerts [...] B adult vaccine 01/17/22 Recorded SARS-CoV-2 mRNA (bzlxhtx-qrvs-kdsid) vax 02/02/22 Recorded SARS-CoV-2 (COVID-19) mRNA BNT-162b2 vac 07/05/21 Recorded SARS-CoV-2 (COVID-19) mRNA BNT-162b2 vac 06/24/21 Recorded SARS-CoV-2 (COVID-19) mRNA BNT-162b2 vac 03/24/21 Recorded SARS-CoV-2 (COVID-19) mRNA BNT-162b2 vac 03/03/21 Recorded tetanus/diphtheria/pertussis, acel(Tdap) 01/09/19 Recorded tetanus/diphtheria/pertussis, acel(Tdap) 06/01/15 Recorded 1Result Comment: [facility] 2[facility] [id number] Medications cetirizine 10 mg oral tablet 0 [...] by dept-- patient is being followed in [place], [place]. Social History Social History Type Response Smoking Status 10 or more cigarette s (1/2 pack or more)/day in last 30 days entered on: 08/19/22 Sex Sex Representation Female (finding) Radiology * Event Display: MRI Spine, Non- BH Authored Date: * Event Display: MRI Spine, Non- BH Authored Date: * Event Display: MRI Spine, Non- BH Authored Date: Patient Care team information Care Team Personnel Name: Araceli Braden Position: [facility] Outreach Member Role: PCP Address: [address] [place] [address] [address] Telecom: Name: Terence Olvera Position: S Outreach Member Role: Lifetime Consulting Physician Care Team Related Persons Name: JOSE KNOX Name: JAMES SLAUGHTER Name: JOSE OLSON Name: JESSICA OLSON Insurance Providers Guarantor name: MARCUS [facility] Plan Information #: 1 Payer: [facility] H61 Member Number: NA Policy Number: NA Group Number: NA
--- OUTSIDE RECORDS SUMMARY | 2025-01-21 11:42 | XMS_ITS | Continuity of Care Document ---
Author Organization [facility] Address [address] [facility], 3r d Floor, [address] [place] [phone]- Care Team Providers Care Client Renewal Specialist Name Role Phone Araceli Braden Primary Care Physician Encounter [facility] Date(s): 12/16/24 - 01/15/25 [facility] [address], [address] [place] [id number] Encounter Type: Triage Allergies, Adverse Reactions, Alerts [...] B adult vaccine 01/17/22 Recorded SARS-CoV-2 mRNA (czljnyc-ntev-cpcad) vax 02/02/22 Recorded SARS-CoV-2 (COVID-19) mRNA BNT-162b2 vac 07/05/21 Recorded SARS-CoV-2 (COVID-19) mRNA BNT-162b2 vac 06/24/21 Recorded SARS-CoV-2 (COVID-19) mRNA BNT-162b2 vac 03/24/21 Recorded SARS-CoV-2 (COVID-19) mRNA BNT-162b2 vac 03/03/21 Recorded tetanus/diphtheria/pertussis, acel(Tdap) 01/09/19 Recorded tetanus/diphtheria/pertussis, acel(Tdap) 06/01/15 Recorded 1Result Comment: [facility] [id number] Medications cetirizine 10 mg oral tablet 0 [...] by dept-- patient is being followed in [place], [place]. Social History Social History Type Response Smoking Status 10 or more cigarette s (1/2 pack or more)/day in last 30 days entered on: 08/19/22 Sex Sex Representation Female (finding) Patient Care team information Care Team Personnel Name: Araceli Braden Position: [facility] Outreach Member Role: PCP Address: [address] [place] [address] Personal Primary Care [address] Telecom: Name: Terence Olvera Position: [facility] Outreach Member Role: Lifetime Consulting Physician Care Team Related Persons Name: JOSE KNOX Name: JAMES SLAUGHTER Name: JOSE OLSON Name: JESSICA OLSON Insurance Providers Guarantor name: MARCUS ULEN Health Plan Information #: 1 Payer: PRIME Member Number: NA Policy Number: NA Group Number: NA
--- OUTSIDE RECORDS SUMMARY | 2025-01-21 11:42 | XMS_ITS | Encounter Summary ---
Author Organization [facility] Address [address] [place] [address] Care Team Providers Care Software Developer Manager Name Role Phone Unavailable Primary Care Provider Unavailabl e Encounter Details Date Type Department Care Team (Late st Contact Info) Description 08/06/2024 8:23 AM EDT Hospital Encounter [facility]OR[facility] Tutu Trivedi MD [address] [place] [address] Social History Tobacco Use Types Packs/Day Years [...] AM EDT Office Visit [facility] [place] [address] [phone] Von Mcclure MD [address] [address] 01/22/2025 9:15 AM EDT Appointment [facility] Scan [address] [place] [phone] 01/28/2025 9:15 AM EDT Office Visit Endocrinology [facility] [address] [place] [address] Lee Garcia MD [address] [place] [address] 04/10/2025 11:00 AM EDT Telemedicine [address] [place] [phone] Mary Manzanares MD [address] [place] [phone] documented as of this encounter Visit Diagnoses Not on filedocumented in this encounter Additional Health Concerns Infection Onset Date Last Indicated Resolved Time Respiratory Rule-Out 12/05/2024 12/05/2024 025 4:51 PM EST Respiratory Rule-Out 12/14/2024 12/14/2024 025 5:56 PM EST COVID-19 Rule-Out 12/14/2024 12/14/2024 12/14/2024 5:56 PM EST documented as of this encounter
--- OUTSIDE RECORDS SUMMARY | 2025-01-21 11:42 | XMS_ITS | Clinical Summary ---
Author Organization [facility] Address [address] [place] [address] Phone Care Team Providers Care Engraver Rubber Name Role Phone Araceli Augustin Primary Care Provider + Allergies Active Allergy Reactions Criticality Noted Date Comments Clindamycin Hives Low 06/01/2015 Erythromycin Hives,Rash Medium 06/01/2015 all mycins Other reaction(s): Hives/Urticaria Other reaction(s): Hives/Urticaria all mycins all mycins Infliximab Other Medium 05/02/2024 Twiching legs, burning scalp, headache Medications ascorbic acid (VITAMIN C) 250 mg tablet Take 1 tablet (250 mg total) by mouth. Active cetirizine (ZyrTEC) 10 mg tablet Take 1 tablet (10 mg total) by mouth 1 (one) time each day. 4 Active cholecalcifero l (VITAMIN D-3) 25 mcg [...] 4 (four) times a day if needed. Active LORazepam (ATIVAN) 1 mg tablet TAKE 1 TABLET BY MOUTH 3 TIMES A DAY IF NEEDED FOR ANXIETY FOR UP TO 5 DAYS. MAX DAILY AMOUNT 3 TAB Oral for 5 Days Active sucralfate (CARAFATE) 1 gram tablet Take 1 tablet (1 g total) by mouth 4 (four) times a day. Take 1 hour before meals and at bedtime 120 each 11 5 11/20/19 26 Active traZODone (DESYREL) 50 mg tablet TAKE ONE TAB NIGHTLY NEEDED FOR SLEEP. 5 Active oxyCODONE (ROXICODONE) 5 mg immediate release tablet 5 Active ibuprofen (ADVIL,MOTRIN) 600 mg tablet 5 Active gabapentin (NEURONTIN) 300 mg capsule 5 Active acetaminophen (TYLENOL) 325 mg tablet 5 Active docusate sodium (COLACE) 100 mg capsule 5 Active hydrOXYzine HCL (ATARAX) 25 mg tablet Take 1 tablet (25 mg total) by mouth every 8 (eight) hours if needed for anxiety for up to 14 days. 42 tablet 5 01/31/20 25 Active progesterone (PROMETRIUM) 100 mg capsule TAKE 1 CAPSULE BY MOUTH EVERY DAY AT BEDTIME FOR 90 DAYS 5 01/17/20 25 Discontinued estradioL (VIVELLE-DOT) 0.0375 mg/[address] 1 patch on the skin 2 (two) times a week. 5 01/17/20 25 Discontinued Active Problems Problem Noted Date Diagnosed Date Acute bilateral low back pain with bilateral sci atica 01/02/2025 Assessment & Plan (01/02/2025 5:46 PM EST): Ms. Phillips describes increasing issues with her lower back and legs. The lumbar CT from [facility] show degenerative disc disease but not stenosis. Her description of paresthesias and leg shaking raise concerns for stenosis. Her workup at the [facility] did not correlate with cauda equina syndrome. She is now awaiting a lumbar spine MRI at [place]. I be happy to review that once [...] this, is currently seeing 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 [place] at [facility], had injection in the right lower [...] Encounters Date Type Department Care Team Description 01/21/2025 7:59 AM EDT Hospital Encounter [facility] Pain Management [address] [place] [address] Tutu Trivedi MD Radiculopathy, cervical region 01/16/2025 8:31 AM EDT - 01/16/2025 11:50 AM EDT Emergency [facility] Emergency [address] [place] [address] Stephanie Nina DO Generalized abdominal pain (Primary Dx) Discharge Disposition: Home or Self Care 01/08/2025 9:00 AM EST Consult Orthopedic Surgery - [address] [place] [phone] Nichelle Archibald PA Arthritis of right shoulder region (Primary Dx); Pain in unspecified shoulder; Calcific tendinitis of both shoulders 01/08/2025 Telephone [facility] [address] [phone] Peggy Leon MD Advice Only (Epidural opinion) 01/03/[address] [phone] Kanika Perez [place] 12/27/2024 3:00 PM EST Office Visit [facility] [address] [phone] Peggy Leon MD Cervical spondylosis (Primary Dx); Acute bilateral low back pain with bilateral sciatica 12/26/2024 8:11 AM EST - 12/26/2024 11:59 PM EST Hospital Encounter [facility] Xray [address] [place] [phone] Dysphagia, unspecified Discharge Disposition: Home or Self Care 12/16/2024 Telephone Neurosurgery [facility] 175 [facility] [address] [place] [phone] [place], [place] 12/14/2024 2:01 PM EST - 12/14/2024 9:20 PM EST Emergency [facility] Emergency [address] [place] [phone] Acute bilateral low back pain, unspecified whether sciatica present (Primary Dx); Tingling in extremities Discharge Disposition: Home or Self Care 12/05/2024 2:30 PM EST - 12/05/2024 9:23 PM EST [facility] Emergency [address] [place] [phone] Pain of right hip (Primary Dx) Discharge Disposition: Home or Self Care 11/27/2024 Telephone Orthopedic Surgery [facility] 250 175 [facility] [address] [place] [phone] Nichelle Archibald PA Arm Pain 11/20/2024 8:40 AM EST [facility] [address] [phone] Rajan Sanders PA Slipped rib syndrome (Primary Dx); Right flank pain; Globus sensation; Epigastric pain; Passage of loose stools 11/20/2024 Telephone Gastroenterology [facility] 175 [facility] [address] [phone] Rajan Sanders PA 11/20/2024 Telephone Gastroenterology [facility] 175 [facility] [address] [phone] Rajan Sanders PA Medication Problem 11/20/2024 Telephone Gastroenterology [facility] 175 [facility] 175 [facility] [address] [place] [phone] Rajan Sanders PA 11/20/2024 Telephone Gastroenterology [facility] 175 [facility] 175 [facility] [address] [place] [address] Rajan Sanders PA Prior Authorization 11/19/2024 Telephone Neurosurgery [facility] 175 [facility] [address] [place] [address] Vanesa Lebron PA 11/18/2024 12:22 PM EST - 11/18/2024 11:59 PM EST Hospital Encounter [facility] Neurodiagnostic [address] [place] [phone] Paresthesias in right hand; Neck pain Discharge Disposition: Home or Self Care 11/18/2024 12:22 PM EST - 11/18/2024 11:59 PM EST Hospital Encounter [facility] Xray [address] [place] [phone] Chest pain, unspecified; Pain in right arm; Paresthesia of skin Discharge Disposition: Home or Self Care 11/18/2024 Telephone Orthopedic [facility] 250 175 [facility] [address] [place] [address] Nichelle Archibald PA 11/11/2024 10:45 AM EST Office Visit Orthopedic [facility] 175 [facility] [address] [place] [phone] Nichelle Archibald PA Pain in both upper extremities (Primary Dx) 11/05/2024 2:30 PM EST Consult [facility] 175 [facility] [address] [place] [address] Vanesa Lebron PA Cervical spondylosis (Primary Dx); Paresthesias in right hand 10/26/2024 7:56 AM EST - 10/26/2024 2:26 PM EST Emergency [facility] Emergency [address] [place] [address] Axel Wiley MD Tremors of nervous system (Primary Dx) Discharge Disposition: Home or Self Care 10/25/[address] [phone] Lee Garcia MD lab work from Last 3 Months Immunizations Name Administration Dates Next Due Hepatitis B (Rkirykc-E-Fkkxn , Recombivax HB-Adult) 19yo and older 02/21/2022,01/17/2022 Influenza Quadravalent, MDCK , 0.5ml, preservative free (Flucelvax) 6mo and older 07/28/2023 Influenza trivalent, with preservative (Fluzone; Afluria) 6mo and older 09/19/2022,08/02/2021,09/23/2020,2019 PPD Test 06/01/2015 [employer] (ages 12 & older) ENMANUEL S-CoV-2 COVID-19, mRNA, LNP-S, trey-sucrose, preservative free 02/02/2022 Pfizer SARS-CoV-2 COVID-19, mRNA, LNP-S, preservative free 07/05/2021,06/24/2021 Tdap Tetanus diptheria acell ular pertussis (Boostrix; Adacel) 7yo and older 01/09/2019,06/01/2015 Surgical History Surgery Date Site/Laterality Comments EYE SURGERY 1973 ORTHOPEDIC SURGERY 1995 Left ACL OTHER SURGICAL HISTORY 12/2017 Dr. Schafer HERNIA REPAIR 07/28/2018 Laparoscopic repair of an incarcerated incisional hernia; Dr. Keenan BREAST BIOPSY 2016 Left b9 fibrous tissue BREAST SURGERY 2016 Left b9 fibrous tissue CARPAL TUNNEL RELEASE 01/20/2020 Right PROCEDURE: MT NEUROPLASTY &/TRANSPOS MEDIAN NRV CARPAL TUNNE COLONOSCOPY OTHER SURGICAL HISTORY 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 [facility] Medical History Medical History Date Comments [...] Mass Index 27.46 01/21/2025 8:18 AM EDT Plan of Treatment Upcoming Encounters Date Type Department Care Team (Late st Contact Info) Description 01/22/2025 8:00 AM EDT Office Visit Orthopedic Surgery - [place] [address] 175 [facility] [address] [place] [phone] Von Mcclure MD 175 [facility] Faustino [address] [place] [address] 01/22/2025 9:15 AM EDT Appointment [facility] CT Scan [address] [place] [phone] 01/28/2025 9:15 AM EDT Office Visit Endocrinology - [place] [address] [place] [address] Lee Garcia MD [address] [place] [address] 04/10/2025 11:00 AM EDT Telemedicine [facility] - [place] [address] [facility] [address] [place] [address] Mary Manzanares MD [address] [place] [address] Health Maintenance Due Date Last Done Comments [...] Procedure Name Priority Date/Time Associated Diagnosis Comments INMAN URINE CULTURE TUBE STAT 01/16/2025 11:08 AM EDT URINALYSIS WITH REFLEX MICROSCOPIC AND CULTURE STAT 01/16/2025 11:08 AM EDT URINALYSIS WITH REFLEX MICROSCOPIC AND CULTURE STAT 01/16/2025 11:[address] ABDOMEN PELVIS W CONTRAST STAT 01/16/2025 10:17 AM EDT THYROID STIMULATING HORMONE WITH REFLEX TO FREE T4 AND FREE T3 STAT Add-on 01/16/2025 7:18 AM EDT CBC WITH AUTO DIFFERENTIAL STAT 01/16/2025 7:18 AM EDT LIPASE STAT 01/16/2025 7:18 AM EDT COMPREHENSIVE METABOLIC PANEL STAT 01/16/2025 7:18 AM EDT CBC AND DIFFERENTIAL STAT 01/16/2025 7:18 AM EDT XR SHOULDER 2+ VIEWS BILAT Routine 01/08/2025 [...] 10/26/2024 HM HEPATITIS C SCREENING Routine 05/20/2024 HIV SCREENING Routine 05/20/2024 COLONOSCOPY Routine 08/15/2023 HPV Routine 07/20/2023 [facility] SCREENING DIGITAL Routine 06/05/2023 4:45 PM EDT Encounter for screening mammogram for malignant neoplasm of breast from Last 3 Months or Most Recently Relevant to Health Maintenance Results * (ABNORMAL) Urinalysis with reflex microscopic and culture (01/16/2025 11:08 AM EDT) Only the most recent of3 resultswithin the time period is included. Specific [place] Urine 1.034(H) 1.003 - 1.030 LAB URINALYSIS - AUTOMATED METHOD 01/16/2025 12:26 PM [facility] pH, Urine 6.5 5.0 - 8.0 pH LAB URINALYSIS - AUTOMATED METHOD 01/16/2025 12:26 PM [facility] Leukocytes, Urine Negative Negative LAB URINALYSIS - AUTOMATED METHOD 01/16/2025 12:26 PM [facility] Nitrite, Urine Negative Negative LAB URINALYSIS - AUTOMATED METHOD 01/16/2025 12:26 PM [facility] Protein, Urine Trace <=Trace mg/dL LAB URINALYSIS - AUTOMATED METHOD 01/16/2025 12:26 PM [facility] Glucose, Urine Negative Negative mg/dL LAB URINALYSIS - AUTOMATED METHOD 01/16/2025 12:26 PM [facility] Ketones, Urine Negative Negative mg/dL LAB URINALYSIS - AUTOMATED METHOD 01/16/2025 12:26 PM [facility] Urobilinogen, Urine 0.2 0.2 - 1.0 mg/dL LAB URINALYSIS - AUTOMATED METHOD 01/16/2025 12:26 PM EDT [facility] Bilirubin, Urine Negative Negative LAB URINALYSIS - AUTOMATED METHOD 01/16/2025 12:26 PM EDT [facility] Blood, Urine Negative Negative LAB URINALYSIS - AUTOMATED METHOD 01/16/2025 12:26 PM EDT [facility] Urine Urine specimen obtained by clean catch procedure / Unknown Non-blood Collection / Unknown 01/16/2025 11:08 AM EDT 01/16/2025 12:11 PM EDT us Stephanie Zimmerman Nina LAB URINE ORDERABLES Nataliia l Result Performing Organization Address [facility]/ZIP Co de Phone Number [facility] [address] [place] [address], [place] [phone] * [place] urine culture tube (01/16/2025 11:08 AM EDT) Only the most recent of3 resultswithin the time period is included. Extra Tube Hold for add-ons. 01/16/2025 2:01 PM EDT [facility] Comment:Auto resulted. Urine Urine specimen obtained by clean catch procedure / Unknown Non-blood Collection / Unknown 01/16/2025 11:08 AM EDT 01/16/2025 12:11 PM EDT us Arccos Golffredy Appurify Erasmo shopp LAB URINE ORDERABLES Nataliia l Result [facility] [address] [place] [address], [place] [phone] * CT Abdomen Pelvis w Contrast (01/16/2025 [...] Signed Date: 01/16/2025 10:48 ET Workstation ID: [id number] Transcribed By: Self Edit Transcribed Date: 01/16/2025 [...] pelvis. -------- FINAL REPORT -------- Dictated By: Heevr Hutton Dictated Date: 01/16/2025 10:43 ET Assigned Physician: Hever Hutton Reviewed and Electronically Signed By: Hever Hutton Signed Date: 01/16/2025 10:48 ET Workstation ID: [id number] Transcribed By: Self Edit Transcribed Date: 01/16/2025 10:43 ET us Stephanie Nina DO IMG CT PROCEDURES Final R esult * Thyroid stimulating hormone with reflex to free t4 and free t3 (TSH Reflex) (01/16/2025 7:18 AM EDT) TSH 2.08 0.40 - 4.00 mcIU/mL LAB CHEMISTRY METHOD 01/16/2025 10:37 AM EDT [facility] Blood Venous blood specimen / Unknown Venipuncture / Unknown 01/16/2025 7:18 AM EDT 01/16/2025 7:55 AM EDT us Stephanie Nina DO LAB BLOOD ORDERABLES Nataliia pedro Result [facility] [address] [place] [address], [place] [phone] * (ABNORMAL) CBC auto differential (01/16/2025 7:18 AM EDT) Only the most recent of5 resultswithin the time period is included. WBC 7.7 4.8 - 10.8 K/mcL LAB HEMETOLOGY METHOD 01/16/2025 8:02 AM [facility] RBC 4.40 3.80 - 4.80 M/mcL LAB HEMETOLOGY METHOD 01/16/2025 8:02 AM [facility] Hemoglobin 14.3 11.5 - 16.0 g/dL LAB HEMETOLOGY METHOD 01/16/2025 8:02 AM [facility] Hematocrit 41.5 35.0 - 47.0 % LAB HEMETOLOGY METHOD 01/16/2025 8:02 AM [facility] MCV 93.7 79.0 - 98.0 FL LAB HEMETOLOGY METHOD 01/16/2025 8:02 AM [facility] MCH 32.3(H) 27.0 - 32.0 pcg LAB HEMETOLOGY METHOD 01/16/2025 8:02 AM [facility] MCHC 34.5 32.0 - 37.0 g/dL LAB HEMETOLOGY METHOD 01/16/2025 8:02 AM [facility] RDW 12.9 11.0 - 15.0 % LAB HEMETOLOGY METHOD 01/16/2025 8:02 AM [facility] Platelets 310 130 - 400 K/mcL LAB HEMETOLOGY METHOD 01/16/2025 8:02 AM [facility] MPV 9.8 7.0 - 11.0 FL LAB HEMETOLOGY METHOD 01/16/2025 8:02 AM [facility] NRBC 0.0 <1.0 % LAB HEMETOLOGY METHOD 01/16/2025 8:02 AM [facility] NRBC Absolute 0.00 <0.10 K/mcL LAB HEMETOLOGY METHOD 01/16/2025 8:02 AM [facility] Neutrophils Relative 48.2 % LAB HEMETOLOGY METHOD 01/16/2025 8:02 AM [facility] Lymphocytes Relative 36.7 % LAB HEMETOLOGY METHOD 01/16/2025 8:02 AM [facility] Monocytes Relative 9.1 % LAB HEMETOLOGY METHOD 01/16/2025 8:02 AM [facility] Eosinophils Relative 5.2 % LAB HEMETOLOGY METHOD 01/16/2025 8:02 AM [facility] Basophils Relative 0.5 % LAB HEMETOLOGY METHOD 01/16/2025 8:02 AM [facility] Immature Granulocytes Relative 0.3 % LAB HEMETOLOGY METHOD 01/16/2025 8:02 AM [facility] Neutrophils Absolute 3.73 1.50 - 7.00 K/mcL LAB HEMETOLOGY METHOD 01/16/2025 8:02 AM [facility] Lymphocytes Absolute 2.83 1.00 - 5.00 K/mcL LAB HEMETOLOGY METHOD 01/16/2025 8:02 AM [facility] Monocytes Absolute 0.70 0.20 - 1.00 K/mcL LAB HEMETOLOGY METHOD 01/16/2025 8:02 AM [facility] Eosinophils Absolute 0.40 0.00 - 0.50 K/mcL LAB HEMETOLOGY METHOD 01/16/2025 8:02 AM EDT [facility] Basophils Absolute 0.04 0.00 - 0.20 K/[facility] LAB HEMETOLOGY METHOD 01/16/2025 8:02 AM EDT [facility] Immature Granulocytes Absolute 0.02 0.00 - 0.03 K/[facility] LAB HEMETOLOGY METHOD 01/16/2025 8:02 AM EDT [facility] Blood Venous blood specimen / Unknown Venipuncture / Unknown 01/16/2025 7:18 AM EDT 01/16/2025 7:55 AM EDT us Roberto Carlos Marie MD LAB BLOOD ORDERABLES Final Resu lt Performing Organization Address [facility] Co de Phone Number [facility] [address] [place] [address], [place] [phone] * Lipase (01/16/2025 7:18 AM EDT) Lipase 18 13 - 75 unit/L LAB CHEMISTRY METHOD 01/16/2025 8:42 AM EDT [facility] Blood Venous blood specimen / Unknown Venipuncture / Unknown 01/16/2025 7:18 AM EDT 01/16/2025 7:55 AM EDT us Roberto Carlos Marie MD LAB BLOOD ORDERABLES Final Resu lt Performing Organization Address [facility]/ZIP Co de Phone Number [facility] [address] [place] [address], [place] [phone] * (ABNORMAL) Comprehensive metabolic panel (01/16/2025 7:18 AM EDT) Only the most recent of3 resultswithin the time period is included. Sodium 138 133 - 145 mmol/L LAB CHEMISTRY METHOD 01/16/2025 8:42 AM EDT [facility] Potassium 4.5 3.5 - 5.5 mmol/L LAB CHEMISTRY METHOD 01/16/2025 8:42 AM [facility] Chloride 103 96 - 110 mmol/L LAB CHEMISTRY METHOD 01/16/2025 8:42 AM [facility] CO2 29 21 - 32 mmol/L LAB CHEMISTRY METHOD 01/16/2025 8:42 AM [facility] Anion Gap 6 3 - 11 LAB CHEMISTRY METHOD 01/16/2025 8:42 AM [facility] Glucose 108(H) 70 - 100 mg/dL LAB CHEMISTRY METHOD 01/16/2025 8:42 AM [facility] BUN 9 5 - 25 mg/dL LAB CHEMISTRY METHOD 01/16/2025 8:42 AM [facility] Creatinine 0.85 0.50 - 1.10 mg/dL LAB CHEMISTRY METHOD 01/16/2025 8:42 AM [facility] eGFR 80 >=60 mL/min/1. 73m2 LAB CHEMISTRY METHOD 01/16/2025 8:42 AM [facility] Comment:Calculation based on the??Chronic Kidney Disease Epidemiology Collaboration (CKD-EPI) equation refit??without adjustment for race. BUN/Creatinine Ratio 10.6 LAB CHEMISTRY METHOD 01/16/2025 8:42 AM [facility] Calcium 9.7 8.5 - 10.5 mg/dL LAB CHEMISTRY METHOD 01/16/2025 8:42 AM [facility] AST (SGOT) 18 10 - 42 unit/L LAB CHEMISTRY METHOD 01/16/2025 8:42 AM [facility] ALT (SGPT) 22 10 - 60 unit/L LAB CHEMISTRY METHOD 01/16/2025 8:42 AM [facility] Alkaline Phosphatase 113 42 - 121 unit/L LAB CHEMISTRY METHOD 01/16/2025 8:42 AM [facility] Total Protein 7.5 6.0 - 8.0 g/dL LAB CHEMISTRY METHOD 01/16/2025 8:42 AM EDT [facility] Albumin 4.1 3.2 - 5.0 g/dL LAB CHEMISTRY METHOD 01/16/2025 8:42 AM EDT [facility] Total Bilirubin 0.5 0.0 - 1.4 mg/dL LAB CHEMISTRY METHOD 01/16/2025 8:42 AM EDT [facility] Blood Venous blood specimen / Unknown Venipuncture / Unknown 01/16/2025 7:18 AM EDT 01/16/2025 7:55 AM EDT Roberto Carlos Marie MD LAB BLOOD ORDERABLES Final Resu lt [facility] [address] [place] [address], [place] [phone] * XR Shoulder 2+ Views bilat (01/08/2025 [...] calcific tendinitis and narrowing of subacromial space Nichelle BOOTHE IMG XR PROCEDURES Final Resul [...] Signed Date: 12/27/2024 08:28 ET Workstation ID: [id number] Transcribed By: Self Edit Transcribed Date: 12/26/2024 13:36 ET Resident/PA/[employer] MEMBER: Lidia Escamilla Narrative 12/27/2024 8:28 AM EST FINDINGS: Double contrast esophagram performed. COMPARISON: Esophagram March 04, 2022 HISTORY: Patient is a 59-year-old female with history of globus sensation. Epigastric pain. Anesthesia Associate radiographs: 1 view chest radiograph demonstrates cardiac [...] female with history of globus sensation.Epigastric pain. Anesthesia Associate radiographs: 1 view chest radiograph demonstrates cardiac [...] Signed Date: 12/27/2024 08:28 ET Workstation ID: [id number] Transcribed By: Self Edit Transcribed Date: 12/26/2024 13:36 ET Resident/PA/[employer] MEMBER: Lidia Escamilla Js Mahoney MD IMG FLUOROSCOPY PROCEDURES Final Result * XR Lumbar Spine 2-3 Views [...] Signed Date: 12/15/2024 07:42 ET Workstation ID: [id number] Transcribed By: Self Edit Transcribed Date: 12/15/2024 [...] Signed Date: 12/15/2024 07:42 ET Workstation ID: [id number] Transcribed By: Self Edit Transcribed Date: 12/15/2024 07:40 ET us Yotam Block PA IMG XR PROCEDURES Final Result * CT Head wo Contrast (12/14/2024 4:54 [...] by: Olga Jauregui MD on 12/14/2024 17:57:05 Yotam Block PA IMG CT PROCEDURES Final Result * ECG 12 lead (12/14/2024 4:37 PM EST) Only the most recent of2 resultswithin the time period is included. Ventricular Rate ECG 67 BPM GEMUSE Atrial Rate 67 BPM GEMUSE P-R Interval 162 ms GEMUSE QRS Duration 64 ms GEMUSE Q-T Interval 422 ms GEMUSE QTc 445 ms GEMUSE P Wave [place] 40 degrees GEMUSE R [place] 6 degrees GEMUSE T [place] 26 degrees GEMUSE ECG Interpretation Normal sinus [...] of2 resultswithin the time period is included. Adenovirus Detection by PCR Not Detected Not Detected LAB MICROBIOLOGY METHOD 12/14/2024 5:56 PM [facility] Influenza A PCR Not Detected Not Detected LAB MICROBIOLOGY METHOD 12/14/2024 5:56 PM [facility] Influenza B PCR Not Detected Not Detected LAB MICROBIOLOGY METHOD 12/14/2024 5:56 PM [facility] Coronavirus 229E Not Detected Not Detected LAB MICROBIOLOGY METHOD 12/14/2024 5:56 PM [facility] Coronavirus HKU1 Not Detected Not Detected LAB MICROBIOLOGY METHOD 12/14/2024 5:56 PM [facility] Coronavirus OC43 Not Detected Not Detected LAB MICROBIOLOGY METHOD 12/14/2024 5:56 PM [facility] Coronavirus NL63 Not Detected Not Detected LAB MICROBIOLOGY METHOD 12/14/2024 5:56 PM [facility] Parainfluenza Virus 1 Not Detected Not Detected LAB MICROBIOLOGY METHOD 12/14/2024 5:56 PM [facility] Parainfluenza Virus 2 Not Detected Not Detected LAB MICROBIOLOGY METHOD 12/14/2024 5:56 PM [facility] Parainfluenza Virus 3 Not Detected Not Detected LAB MICROBIOLOGY METHOD 12/14/2024 5:56 PM EST [facility] Parainfluenza Virus 4 Not Detected Not Detected LAB MICROBIOLOGY METHOD 12/14/2024 5:56 PM [facility] RSV PCR Not Detected Not Detected LAB MICROBIOLOGY METHOD 12/14/2024 5:56 PM [facility] Human Metapneumovirus A and B Not Detected Not Detected LAB MICROBIOLOGY METHOD 12/14/2024 5:56 PM [facility] Rhinovirus/Entero virus Not Detected Not Detected LAB MICROBIOLOGY METHOD 12/14/2024 5:56 PM [facility] Bordetella pertussis Not Detected Not Detected LAB MICROBIOLOGY METHOD 12/14/2024 5:56 PM [facility] Bordetella parapertussis Not Detected Not Detected LAB MICROBIOLOGY METHOD 12/14/2024 5:56 PM [facility] Mycoplasma pneumo by PCR Not Detected Not Detected LAB MICROBIOLOGY METHOD 12/14/2024 5:56 PM [facility] Chlamydia pneumoniae Not Detected Not Detected LAB MICROBIOLOGY METHOD 12/14/2024 5:56 PM [facility] SARS COV-2 Not Detected Not Detected LAB MICROBIOLOGY METHOD 12/14/2024 5:56 PM [facility] Swab Both anterior nares / Unknown Non-blood Collection / Unknown 12/14/2024 4:28 PM EST 12/14/2024 4:34 PM EST [facility] - 12/14/2024 5:56 PM EST Testing was performed using the [employer] Respiratory Pathogen PCR Assay. All results must [...] that are below the limit of detection. [facility] MICROBIOLOGY - GENERAL ORDER KAILASH Final Result Performing Organization Address City/[facility]/ZIP Co de Phone Number [facility] [address] [place] [address], * Phosphorus (12/14/2024 12:01 PM EST) Phosphorus 3.5 2.5 - 4.5 mg/dL LAB CHEMISTRY METHOD 12/14/2024 4:31 PM EST [facility] Blood Venous blood specimen / Unknown Venipuncture / Unknown 12/14/2024 12:01 PM EST 12/14/2024 12:24 PM EST [facility] LAB BLOOD ORDERABLES Final Resul t Performing Organization Address [facility]/ZIP Co de Phone Number [facility] [address] [place] [address], * Magnesium (12/14/2024 12:01 PM EST) Only the most recent of2 resultswithin the time period is included. Magnesium 2.0 1.9 - 2.6 mg/dL LAB CHEMISTRY METHOD 12/14/2024 12:51 PM EST [facility] Blood Venous blood specimen / Unknown Venipuncture / Unknown 12/14/2024 12:01 PM EST 12/14/2024 12:24 PM EST Pepe Mar DO LAB BLOOD ORDERABLES Final Result Performing Organization Address City/[facility]/ZIP Co de Phone Number [facility] [address] [place] [address], [place] [phone] * (ABNORMAL) Basic metabolic panel (12/14/2024 12:01 PM EST) Only the most recent of2 resultswithin the time period is included. Sodium 138 133 - 145 mmol/L LAB CHEMISTRY METHOD 12/14/2024 12:59 PM [facility] Potassium 4.5 3.5 - 5.5 mmol/L LAB CHEMISTRY METHOD 12/14/2024 12:59 PM [facility] Chloride 106 96 - 110 mmol/L LAB CHEMISTRY METHOD 12/14/2024 12:59 PM [facility] CO2 28 21 - 32 mmol/L LAB CHEMISTRY METHOD 12/14/2024 12:59 PM [facility] Anion Gap 4 3 - 11 LAB CHEMISTRY METHOD 12/14/2024 12:59 PM [facility] Glucose 119(H) 70 - 100 mg/dL LAB CHEMISTRY METHOD 12/14/2024 12:59 PM [facility] BUN 13 5 - 25 mg/dL LAB CHEMISTRY METHOD 12/14/2024 12:59 PM [facility] Creatinine 0.82 0.50 - 1.10 mg/dL LAB CHEMISTRY METHOD 12/14/2024 12:59 PM [facility] eGFR 84 >=60 mL/min/1. 73m2 LAB CHEMISTRY METHOD 12/14/2024 12:59 PM [facility] Comment:Calculation based on the??Chronic Kidney Disease Epidemiology Collaboration (CKD-EPI) equation refit??without adjustment for race. BUN/Creatinine Ratio 15.9 LAB CHEMISTRY METHOD 12/14/2024 12:59 PM [facility] Calcium 9.6 8.5 - 10.5 mg/dL LAB CHEMISTRY METHOD 12/14/2024 12:59 PM [facility] Blood Venous blood specimen / Unknown Venipuncture / Unknown 12/14/2024 12:01 PM EST 12/14/2024 12:24 PM EST us Pepe Mar DO LAB BLOOD ORDERABLES Final Result [facility] [address] [place] [address], * ECG-Annotated (12/14/2024) Only the most recent [...] of2 resultswithin the time period is included. [facility] Lyme Ab Negative Negative LAB CHEMISTRY METHOD 12/06/2024 9:08 AM EST [facility] Comment: No laboratory evidence [...] MD LAB BLOOD ORDERABLES Final Resu lt [facility] [address] [place] [address], [place] [phone] * Sedimentation rate, automated (12/05/2024 1:30 PM EST) Only the most recent of2 resultswithin the time period is included. [facility] Sed Rate 20 0 - 30 mm/hr LAB HEMETOLOGY METHOD 12/05/2024 1:59 PM EST [facility] Blood Venous blood specimen / Unknown Venipuncture / Unknown 12/05/2024 1:30 PM EST 12/05/2024 1:39 PM EST us Jewel Hernández MD LAB BLOOD ORDERABLES Final Resu lt [facility] [address] [place] [address], [place] [phone] * C-reactive protein (12/05/2024 1:30 PM EST) C-Reactive Protein <0.29 <=0.50 mg/dL LAB CHEMISTRY METHOD 12/05/2024 2:05 PM EST [facility] Blood Venous blood specimen / Unknown Venipuncture / Unknown 12/05/2024 1:30 PM EST 12/05/2024 1:39 PM EST us Jewel Hernández MD LAB BLOOD ORDERABLES Final Resu lt Performing Organization Address [facility] Co de Phone Number [facility] [address] [place] [address], [place] [phone] * Creatine kinase (12/05/2024 1:30 PM EST) Only the most recent of2 resultswithin the time period is included. Pathologist [facility] Total CK 80 22 - 269 unit/L LAB CHEMISTRY METHOD 12/05/2024 2:05 PM EST [facility] Blood Venous blood specimen / Unknown Venipuncture / Unknown 12/05/2024 1:30 PM EST 12/05/2024 1:39 PM EST us Jewel Hernández MD LAB BLOOD ORDERABLES Final Resu lt Performing Organization Address [facility] Co de Phone Number [facility] [address] [place] [address], [place] [phone] * EMG one limb (11/18/2024 1:17 PM EST) Narrative Linda Buitrago MD - 11/18/2024 3:44 PM EST See report in chart review Nichelle BOOTHE NEUROLOGY ORDERABLES Final Re sult * XR Cervical Spine 4-5 Views (11/18/2024 12:43 PM EST) Anatomical Region Laterality Modality Spine, C-spine Radiographic Krystyna ging 11/19/2024 1:40 PM EST Impressions 11/19/2024 1:45 PM EST Impression: Cervical spondylosis and degenerative disc disease, with bilateral bony neural foraminal narrowing, similar to the prior neck CTA. Telechaka BOOTHE ([id number]) -------- FINAL REPORT -------- Dictated By: Dayami Diehl Dictated Date: 11/19/2024 13:40 ET Assigned Physician: Dayami Diehl Reviewed and Electronically Signed By: Dayami Diehl Signed Date: 11/19/2024 13:45 ET Workstation ID: [id number] Transcribed By: Self Edit Transcribed Date: 11/19/2024 [...] to the prior neck CTA. Telechaka BOOTHE ([id number]) -------- FINAL REPORT -------- Dictated By: Dayami Diehl Dictated Date: 11/19/2024 13:40 ET Assigned Physician: Dayami Diehl Reviewed and Electronically Signed By: Dayami Diehl Signed Date: 11/19/2024 13:45 ET Workstation ID: [id number] Transcribed By: Self Edit Transcribed Date: 11/19/2024 13:40 ET Araceli BOOTHE IMG XR PROCEDURES Final Result * CT Lumbar Spine wo Contrast (11/02/2024 3:13 PM EST) Anatomical Region Laterality Modality Spine, L-spine Computed Tomogra phy Historical Provider IMG CT PROCEDURES Final R esult * CT Abdomen w Contrast (11/02/2024 3:08 PM EST) Anatomical Region Laterality Modality Body Computed Tomogra phy Historical Provider IMG CT PROCEDURES Final R esult * [...] LAB CHEMISTRY METHOD 10/28/2024 4:17 PM EST [facility] Triglycerides 51 0 - 150 mg/dL LAB CHEMISTRY METHOD 10/28/2024 4:17 PM EST [facility] HDL 111 >=40 mg/dL LAB CHEMISTRY METHOD 10/28/2024 4:17 PM [facility] LDL Calculated 75 0 - 100 mg/dL LAB CHEMISTRY METHOD 10/28/2024 4:17 PM [facility] VLDL Cholesterol Corby 10.2 mg/dL LAB CHEMISTRY METHOD 10/28/2024 4:17 PM EST [facility] Non HDL Chol. (LDL+VLDL) 85 <145 mg/dL LAB CHEMISTRY METHOD 10/28/2024 4:17 PM EST [facility] Chol/HDL Ratio 1.8 0.0 - 4.4 LAB CHEMISTRY METHOD 10/28/2024 4:17 PM [facility] Blood Venous blood specimen / Unknown Venipuncture / Unknown 10/28/2024 2:36 PM EST 10/28/2024 3:06 PM EST Araceli BOOTHE LAB BLOOD ORDERABLES Fin al Result Performing Organization Address City/[facility]/ZIP Co de Phone Number [facility] [address] [place] [address], [place] [phone] * CAMILO IFA with titer and pattern (10/28/2024 2:36 PM EST) CAMILO Negative Negative 10/31/2024 11:26 AM EST [facility] Blood Venous blood specimen / Unknown Venipuncture / Unknown 10/28/2024 2:36 PM EST 10/28/2024 3:07 PM EST Araceli BOOTHE LAB BLOOD ORDERABLES Fin al Result Performing Organization Address [facility]/ZIP Co de Phone Number [facility] [address] [place] [address], [place] [phone] * (ABNORMAL) Iron and TIBC (10/28/2024 2:36 PM EST) Iron 41 40 - 150 mcg/dL LAB CHEMISTRY METHOD 10/28/2024 4:15 PM EST [facility] TIBC 392 250 - 450 mcg/dL LAB CHEMISTRY METHOD 10/28/2024 4:15 PM EST [facility] Iron Saturation 10(L) 15 - 50 % LAB CHEMISTRY METHOD 10/28/2024 4:15 PM EST [facility] Blood Venous blood specimen / Unknown Venipuncture / Unknown 10/28/2024 2:36 PM EST 10/28/2024 3:06 PM EST Araceli BOOTHE LAB BLOOD ORDERABLES Fin al Result Performing Organization Address City/[facility]/ZIP Co de Phone Number [facility] [address] [place] [address], [place] [phone] * Vitamin D 25 hydroxy (10/28/2024 2:36 PM EST) Pathologist [facility] Vit D, 25-Hydroxy 40.6 30.0 - 80.0 ng/mL LAB CHEMISTRY METHOD 10/28/2024 4:18 PM EST [facility] Blood Venous blood specimen / Unknown Venipuncture / Unknown 10/28/2024 2:36 PM EST 10/28/2024 3:06 PM EST Araceli BOOTHE LAB BLOOD ORDERABLES Fin al Result [facility] [address] [place] [address], [place] [phone] * (ABNORMAL) Rheumatoid factor (10/28/2024 2:36 PM EST) Rheumatoid Factor 152.0(H) <15.0 I Unit/mL LAB CHEMISTRY METHOD 10/28/2024 4:15 PM EST [facility] Blood Venous blood specimen / Unknown Venipuncture / Unknown 10/28/2024 2:36 PM EST 10/28/2024 3:06 PM EST Araceli BOOTHE LAB BLOOD ORDERABLES Fin al Result Performing Organization Address [facility] Co de Phone Number [facility] [address] [place] [address], [place] [phone] * C reactive protein, high sensitivity (10/28/2024 2:36 PM EST) CRP, High Sensitivity 0.58 mg/L LAB CHEMISTRY METHOD 10/28/2024 4:11 PM EST [facility] Comment: Cardio CRP Relative [...] ORDERABLES Fin al Result Performing Organization Address City/[facility]/ZIP Co de Phone Number [facility] [address] [place] [address], [place] [phone] * Thyroid stimulating hormone (10/28/2024 2:36 PM EST) Only the most recent of2 resultswithin the time period is included. TSH 0.60 0.40 - 4.00 mcIU/mL LAB CHEMISTRY METHOD 10/28/2024 4:19 PM EST [facility] Blood Venous blood specimen / Unknown Venipuncture / Unknown 10/28/2024 2:36 PM EST 10/28/2024 3:06 PM EST Araceli BOOTHE LAB BLOOD ORDERABLES Fin al Result [facility] [address] [place] [address], [place] [phone] * Hemoglobin A1c (10/28/2024 2:36 PM EST) Hemoglobin A1C 5.4 <6.5 % LAB CHEMISTRY METHOD 10/28/2024 9:16 PM EST [facility] Mean Bld Glu Estim. 108 mg/dL LAB CHEMISTRY METHOD 10/28/2024 9:16 PM EST [facility] Blood Venous blood specimen / Unknown Venipuncture / Unknown 10/28/2024 2:36 PM EST 10/28/2024 3:10 PM EST Araceli BOOTHE LAB BLOOD ORDERABLES Fin al Result Performing Organization Address City/[facility]/ZIP Co de Phone Number [facility] [address] [place] [address], [place] [phone] * Ferritin (10/28/2024 2:36 PM EST) Ferritin 28 8 - 252 ng/mL LAB CHEMISTRY METHOD 10/28/2024 4:15 PM EST [facility] Blood Venous blood specimen / Unknown Venipuncture / Unknown 10/28/2024 2:36 PM EST 10/28/2024 3:06 PM EST Araceli BOOTHE LAB BLOOD ORDERABLES Fin al Result [facility] [address] [place] [address], [place] [phone] * Drug abuse screen 8a panel, urine (10/26/2024 1:47 PM EST) [facility] Amphetamine Screen, Ur Negative Negative LAB CHEMISTRY METHOD 10/26/2024 2:22 PM [facility] Comment:Certain OTC medicati ons containing ephedrine, phenylephrine, pseudoephedrine and phenylpropanolamine can cause false positive results. Barbiturate Screen, Ur Negative Negative LAB CHEMISTRY METHOD 10/26/2024 2:22 PM [facility] Benzodiazepine Screen, Ur Negative Negative LAB CHEMISTRY METHOD 10/26/2024 2:22 PM [facility] Cocaine Screen, Ur Negative Negative LAB CHEMISTRY METHOD 10/26/2024 2:22 PM [facility] Opiate Screen, Ur Negative Negative LAB CHEMISTRY METHOD 10/26/2024 2:22 PM [facility] Cannabinoid (THC) Screen, Ur Negative Negative LAB CHEMISTRY METHOD 10/26/2024 2:22 PM [facility] Comment:Specimens from patie nts taking pantoprazole sodium (Protonix) have been shown to produce false positive results. Oxycodone Screen, Ur Negative Negative LAB CHEMISTRY METHOD 10/26/2024 2:22 PM [facility] Fentanyl, Ur Negative Negative LAB CHEMISTRY METHOD 10/26/2024 2:22 PM [facility] Urine Urine specimen obtained by clean catch procedure / Unknown Non-blood Collection / Unknown 10/26/2024 1:47 PM EST 10/26/2024 1:57 PM EST [facility] - 10/26/2024 2:22 PM EST Assay [...] ORDERABLES Final Res ult Performing Organization Address [facility] de Phone Number [facility] [address] [place] [address], * Oxycodone, urine (10/26/2024 1:47 PM EST) Oxycodone Screen, Ur Negative Negative LAB CHEMISTRY METHOD 10/26/2024 2:22 PM EST [facility] Comment: Assay cutoff 100 [...] ORDERABLES Final Res ult Performing Organization Address [facility] de Phone Number [facility] [address] [place] [address], * Culture urine (10/26/2024 8:01 AM EST) Culture, Urine >100,000 CFU/mL Mixed urogenital ramone, no uropathogens present. Suggest repeat specimen if clinically indicated. 10/28/2024 7:41 AM EST [facility] Urine Urine specimen obtained by clean catch procedure / Unknown Non-blood Collection / Unknown 10/26/2024 8:01 AM EST 10/26/2024 8:44 AM EST Avis BOOTHE LAB MICROBIOLOGY - GEN ERAL ORDERABLES Final Result Performing Organization Address [facility]/ZIP Co de Phone Number [facility] [address] [place] [address], [place] [phone] * T4, Free (10/26/2024 7:11 AM EST) [facility] T4 1.09 0.70 - 1.80 ng/dL LAB CHEMISTRY METHOD 10/26/2024 10:03 AM EST [facility] Blood Venous blood specimen / Unknown Venipuncture / Unknown 10/26/2024 7:11 AM EST 10/26/2024 7:20 AM EST Axel Wiley MD LAB BLOOD ORDERABLES Final Res ult Performing Organization Address [facility] Co de Phone Number [facility] [address] [place] [address], [place] [phone] * HIV Screening (05/20/2024) [facility] HIV Screening abstracted [facility] Provider HEALTH MAINTENANCE Final Result * Hepatitis C Screening (05/20/2024) [facility] Hepatitis C Screening abstracted [facility] Provider HEALTH MAINTENANCE Final Result * Colonoscopy (08/15/2023) [facility] Colonoscopy no interpreta tion,abstr acted Anatomical Region Laterality Modality Other Historical Provider HEALTH MAINTENANCE Final Result * Cervical Cancer Screening: HPV (07/20/2023) [facility] Cervical Cancer Screening: HPV no interpreta tion,abstr acted Historical Provider HEALTH MAINTENANCE Final Result * ARDIAN SCREENING DIGITAL (06/05/2023 4:45 PM EDT) Anatomical Region Laterality Modality Mammography 06/02/2023 12:4 2 PM EDT Narrative 06/05/2023 4:45 PM EDT [facility] Diagnostic Imaging Department [address] [place] [id number] Patient: ??MARÍA PHILLIPS ?/Age/Sex: 1965 - 57 - F Unit#: ??[id number] ? Location/Status: ??[facility] CLI ? Mnemonic/Ordering Site: ??DIGSC/SPMAM Ordering Physician: ??JANICE SCHAFER MD [facility] Screening Digital - 06/02/23 - 1329 Report Status:Signed EXAM: [facility] Screening Digital EXAM DATE AND TIME: 06/02/2023 1:29 PM HISTORY: ??Screening. Excisional biopsy of the left breast in 2016, pathology benign. COMPARISON: ??02/27/19, 07/26/17, 08/08/16, 07/25/16, 08/28/07 TECHNIQUE: Bilateral digital breast tomosynthesis was performed in the CC and MLO projections. Computer aided detection with Doutíssima 3D 3.1 was employed. TISSUE DENSITY: a. [...] screening mammogram BILATERAL in 1 year. 3341F, 7072F Dictating Physician: ??DAYAMI DIEHL MD Electronically Signed by: ??DAYAMI DIEHL MD Dic Date/Time: ??06/05/231643 Sign date/Time: ??06/05/23 1645 Procedure Note Dayami Diehl MD - 12/12/2023 [facility] Diagnostic Imaging Department [address] [place] [address] Patient: MARÍA PHILLIPS /Age/Sex: 1965 - 57 - F Unit#: [id number] Location/Status: [facility] CLI Mnemonic/Ordering Site: [facility] Ordering Physician: JANICE SCHAFER MD [facility] Screening Digital - 06/02/23 - 1329 Report Status:Signed EXAM: [facility] Screening Digital EXAM DATE AND TIME: 06/02/2023 1:29 PM HISTORY: Screening. Excisional biopsy of the left breast in 2016,pathology benign. COMPARISON: 02/27/19, 07/26/17, 08/08/16, 07/25/16, 08/28/07 TECHNIQUE: Bilateral digital breast tomosynthesis was performed in the CCand MLO projections. Computer aided detection with Doutíssima 3D 3.1was employed. TISSUE DENSITY: a. The [...] Most Recently Relevant to Health Maintenance Insurance [employer] Care Teams Engraver Rubber Relationship Specialty Start Date End Date Araceli Augustin PA [address] [facility] [address] [place] [address] PCP - General 11/20/24
--- OUTSIDE RECORDS SUMMARY | 2025-01-21 11:42 | XMS_ITS | Continuity of Care Document ---
Author Organization [facility] [address] [place] [address] Phone [phone] Care Team Providers Care Hand Compositor Name Role Phone Vee Queen M.D Care Team Informa tijolanta Machine Farmworker [phone] Problems Active Problems Provider Date Anxiety Eric [...] Medications SIG Qnty Indications Ordering Provider Date [id number] Tablets 1 tabs by mouth at 11pm 1tabs Eric Shah M.D. 12/01/2022 [id number] Capsules Take 1 Capsule By Mouth 2 Times A Day Terence Olvera MD Gpxmtubocrcqeceoeh6x g TBPK follow package directions Unknown Vital Signs Date Vital Result Comment 12/01/2022 11:00am BP Systolic 130 mmHg BP Diastolic 70 mmHg Heart Rate 72 /min Height 64 inches 5'4 Weight 185.00 lb BMI (Body Mass Index) 31.8 kg/m2 Results Test Acquired Date Facility Test Result H/L Range N ote Cortisol 01/20/2023 [facility] Cortisol 0.6 g /dL 1 Cortisol 01/06/2023 [facility] Cortisol <pending> Cortisol 01/05/2023 [facility] Cortisol 5.3 g /dL 2 Free T4 01/05/2023 [facility] Free T4 0.98 ng/dL (0.70-1.80) TSH [facility] 0.52 uIU/mL (0.4-4.2) Free T4 01/04/2023 [facility] Free T4 <pending> TSH 01/04/2023 [facility] TSH <pending> 1 Reference Range: 6-10 [...]
--- OUTSIDE RECORDS SUMMARY | 2025-01-21 11:43 | XMS_ITS | Continuity of Care Document ---
Author Organization [facility] Address [address], [address] Floor, [address] [place] [address]- Care Team Providers Care Bottling Machine Operator Name Role Phone Araceli Braden Primary Care Physician [place] [facility] [place] 12/16/24 - 01/15/25 [facility] [address], [address] [place] [address] Encounter Type: Triage Allergies, Adverse [...] B adult vaccine 01/17/22 Recorded SARS-CoV-2 mRNA (iqinypl-onvc-sdxdj) vax 02/02/22 Recorded SARS-CoV-2 (COVID-19) mRNA BNT-162b2 vac 07/05/21 Recorded SARS-CoV-2 (COVID-19) mRNA BNT-162b2 vac 06/24/21 Recorded SARS-CoV-2 (COVID-19) mRNA BNT-162b2 vac 03/24/21 Recorded SARS-CoV-2 (COVID-19) mRNA BNT-162b2 vac 03/03/21 Recorded tetanus/diphtheria/pertussis, acel(Tdap) 01/09/19 Recorded tetanus/diphtheria/pertussis, acel(Tdap) 06/01/15 Recorded 1Result Comment: [facility] [id number] Medications cetirizine 10 mg oral tablet 0 [...] by dept-- patient is being followed in [place], [place]. Social History Social History Type Response Smoking Status 10 or more cigarette s (1/2 pack or more)/day in last 30 days entered on: 08/19/22 Sex Sex Representation Female (finding) Patient Care team information Care Team Personnel Name: Araceli Braden Position: [facility] Outreach Member Role: PCP Address: [address] [place] [address] Personal Primary Care [address] Telecom: Name: Terence Olvera Position: [facility] Outreach Member Role: Lifetime Consulting Physician Care Team Related Persons Name: JOSE KNOX Name: JAMES SLAUGHTER Name: JOSE OLSON Name: JESSICA OLSON Insurance Providers Guarantor name: M[employer] [place] Health Plan Information #: 1 Payer: [employer] Member Number: NA Policy Number: NA Group Number: NA
--- OUTSIDE RECORDS SUMMARY | 2025-01-21 11:43 | XMS_ITS ---
Author Organization [facility] Address [address] [place] [address] Care Team Providers Care Net Software Architect Name Role Phone IKER ROBLERO PA-C Primary Care Provider Latonya Ramirez Unavailable [phone] Allergies Allergen (clinical drug ingredient) Drug/Non Drug Allergy documented on EMR Reaction Allergy Type Onset Date Status erythromycin ERYTHROMYCIN Skin Rash Drug Allergy A ctive Results Component Value Reference Range Notes Vitamin [id number] Reviewed date:12/14/2024 02:48:01 PM Interpretation: Performing Lab:[facility], [address] [place] [address], Phone - [phone], Director - MDJodry Notes/Report: Test(s) 695132-Fpz. B1, Whole Blood was developed and its performance characteristics determined by [employer]. It has not been cleared or approved by the Food and Drug Administration. Vitamin B12 320 849-6864 pg/mL Thyroxine (T4) Free, Direct- 021127 Reviewed date:12/14/2024 02:48:28 PM Interpretation: Performing Lab:[facility], Phone - [phone], Director - MDJodry Notes/Report: Test(s) 303350-Dto. B1, Whole Blood was developed and its performance characteristics determined by [employer]. It has not been cleared or approved by the Food and Drug Administration. T4,Free(Direct) 1.16 0.82-1.77 ng/dL TSH-[id number] Reviewed date:12/14/2024 02:48:55 PM Interpretation: Performing Lab:[facility], [address] [place] [address], Phone - [phone], Director - MDJodry Notes/Report: Test(s) 134785-Nzp. B1, Whole Blood was developed and its performance characteristics determined by [facility]. It has not been cleared or approved by the Food and Drug Administration. TSH 0.492 0.450-4.500 uIU/mL Triiodothyronine (T3), Free- 912649 Reviewed date:12/14/2024 02:48:08 PM Interpretation: Performing Lab:[facility] [address], Phone - [phone], Director - Elsa Notes/Report: Test(s) 574403-Yso. B1, Whole Blood was developed and its performance characteristics determined by [facility]. It has not been cleared or approved by the Food and Drug Administration. Triiodothyronine (T3), Free 2.9 2.0-4.4 pg/mL Vitamin D, 50-Vavcstj-609059 Reviewed date:12/14/2024 02:47:53 PM Interpretation: Performing Lab:[facility] [address], Phone - [phone], Director - Elsa Notes/Report: Test(s) 764069-Chn. B1, Whole Blood was developed and its performance characteristics determined by [facility]. It has not been cleared or approved by the Food and Drug Administration. Vitamin D, 25-Hydroxy 48.0 30.0-100.0 ng/mL Vitamin D deficiency has been defined by the [place] of [employer] and an Endocrine Society practice guideline as a level of serum 25-OH vitamin D less than 20 ng/mL (1,2). The Endocrine Society went on to further define vitamin D insufficiency as a level between 21 and 29 ng/mL (2). 1. IOM ([place] of [employer]). 2010. Dietary reference intakes for calcium and D. [place]: The National Academies Press. 2. Angelica MF, Leonel NC, Sheeba MCKENNA, et al. Evaluation, treatment, and prevention of vitamin D deficiency: an Endocrine Society clinical practice guideline. JCEM. 2010; 96(7):1911-30. Vitamin B1 (Thiamine), Blood -960495 Reviewed date:12/14/2024 02:48:18 PM Interpretation: Performing Lab:[facility] [address], [place], Phone - [phone], Director - Elsa Notes/Report: Test(s) 070756-Zjc. B1, Whole Blood was developed and its performance characteristics determined by [facility] [employer]. It has not been cleared or approved by the Food and Drug Administration. Vit. B1, Whole Blood 131.3 66.5-200.0 nmol/L PDF Report Reviewed date:12/14/2024 02:47:46 PM Interpretation: Performing Lab:[facility], [address], [place], Phone - [phone], Director - Elsa Notes/Report: Test(s) 043504-Mzs. B1, Whole Blood was developed and its performance characteristics determined by [employer]. It has not been cleared or approved by the Food and Drug Administration. REASON FOR VISIT TALK HRT Medications Medication SIG (Take, Route, Frequency, Duration) Notes Start Date End Date Status Prometrium 100 MG 1 capsule at bedtime Orally Once a day for 90 days 12/09/2024 Active Turmeric 500 MG as directed Orally Active Gabapentin 100 MG TAKE 1 CAPSULE BY [facility] 3 TIMES A DAY [...] Encounters Encounter Location Date Provider Diagnosis Total [address] [place] [address] 12/09/2024 Latonya Lozano Other fatigue R53.83 and [...] AND NEEDS TESTOSTERONE THERAPY, WILL REFER TO [facility]. WARNED DALE OF POSSIBLE VAGINAL [...] AND NEEDS TESTOSTERONE THERAPY, WILL REFER TO [facility]. WARNED PAT OF POSSIBLE VAGINAL BLEEDING. CALL IF SHE HAS ANY BLEEDING. Next Appt Details Follow Up: 3 Months, Reason: Progress Notes * MIS OLSONOB:1965 (59 yo F)Acc No.[id number]:12/09/2024 PROGRESS NOTES Patient:?MARCUS OLSON Appointment Provider:?Latonya lopez M.D. :1965???Age:59 Y???Sex:Female D ate:12/09/2024 Address:[address] [place] [address] Pcp:CHANTAL KHAN MD Subjective: * Chief Complaints: [...] stool.?no?genitourinary complaints.?no?skin complaints.? 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 * Expert Medical Writer History:?/ Para?2/2.?Sexual activity?not currently sexually active.?Last Pap Smear:?05/26/23 ASCUS, POS HRHPV (Neg 16, 18/45), 03/28/22 LGSIL, POS HRHPV (neg 16, 18/45), 11/21/17 NEG HRHPV, 2011.?Mammogram:?06/02/23 < 50% density, 02/27/19 < 50% density, 07/26/2017 normal, 07/2016 with follow up Lt Diagnostic 07/09/2016 Bx recommended.?Abnormal Pap Smear:?07/07/23 [place] Negative, 06/06/22 [place] Negative, 03/2022 LGSIL, + HRHPV.?LMP and menses?[place] 01/2017.? Control:?None.?Colonoscopy?08/2023, 1998.?Bone Density:?06/02/23.? * OB History:?Total [...] AND NEEDS TESTOSTERONE THERAPY, WILL REFER TO [facility]. WARNED PAT OF POSSIBLE VAGINAL BLEEDING. CALL IF SHE HAS ANY BLEEDING.?? * Procedure Codes:? * Follow Up:?3 Months * Images: Billing Information: * Visit Code:? * Procedure Codes:? * Sign off status: Completed true * Appointment Provider:?Latonya Lozano M.D. Date:?12/09/2024 Generated for Renay bear/Hilton/[place]aquille on:?01/21/2025 11:43 AM EDT History and Physical Notes * [...]
--- OUTSIDE RECORDS SUMMARY | 2025-01-21 11:43 | XMS_ITS ---
Author Organization [facility] Address [address] [place] [address] Care Team Providers Care Embedded Linux Engineer Name Role Phone IKER ROBLERO Unavailable [phone] REASON FOR VISIT insurance referral Encounters Encounter Location Date Provider Diagnosis [facility] [address] [place] [address] 01/07/2025 IKER ROBLERO PLAN OF TREATMENT No Information Progress Notes * David OLSONOB:1965 (59 yo F)Acc No.[id number]:01/07/2025 Patient:??María OLSON :1965?Age:59 Y?Sex:Fe male Address:[address], [place] [address] * true * Date:??
--- OUTSIDE RECORDS SUMMARY | 2025-01-21 11:43 | XMS_ITS ---
Author Organization [facility] Address [place] [address] Care Team Providers Care Psychological Stress Evaluator Name Role Phone IKER ROBLERO Unavailable [phone] REASON FOR VISIT RE:Referral request Encounters Encounter Location Date Provider Diagnosis [address] [place] [address] 01/01/2025 IKER ROBLERO PLAN OF TREATMENT No Information Progress Notes * David OLSONOB:1965 (59 yo F)Acc No.[id number]:01/01/2025 Patient:??María OLSON :1965?Age:59 Y?Sex:Fe male Address:[address], [place] [address] * true * Date:??
--- OUTSIDE RECORDS SUMMARY | 2025-01-21 11:43 | XMS_ITS ---
Author Organization [facility] Address [address] [place] [address] Care Team Providers Care Assurance Manager Name Role Phone LINDA KHAN Primary Care Provider REASON FOR VISIT Transferring out Encounters Encounter Location Date Provider Diagnosis [facility] [address] [address] 10/31/2024 LINDA KHAN Plan Of Treatment No Information Progress Notes * MIS OLSONOB:1965 (59 yo F)Acc No.[id number]:10/31/2024 Patient:?MARCUS OLSON :1965???Age:59 Y???Sex:Female Address:[address] [place] [address] * true * Date:? Generated for Renay bear/Hilton/eTransmitting on:?01/21/2025 11:42 AM EDT
--- OUTSIDE RECORDS SUMMARY | 2025-01-21 11:43 | XMS_ITS | Clinical Summary ---
Author Organization [facility] Address [address] [place] [address] Care Team Providers Care Psych Nurse Name Role Phone Vee Allan MD Primary [...] age to complete this topic Care Teams Psych Nurse Relationship Specialty Start Date End Date Vee Allan MD PCP - General Internal Medicine 12/05/19
== END 2025-01-21 11:18 | disposition home or self-care (01) ==
LOC: HO.RHES 10:12
PROVIDERS: Visit Provider Internal Medicine Rheumatology
DX: M54.50 Low back pain, unspecified (principal); M79.18 Myalgia, other site; M05.79 Rheumatoid arthritis with rheumatoid factor of multiple sites without organ or systems involvement
CPT/HCPCS: 99215; G2211

== ENCOUNTER 2025-01-21 10:11 | Outpatient (REF) | payer OTHER, SELFPAY ==
--- NOTE | ~2025-01-21 | XR_ITS ---
EXAMINATION: XR SACROILIAC JOINTS CLINICAL INFORMATION: M79.18 - Myalgia, other site COMPARISON: None available. TECHNIQUE: 3 views of the sacroiliac joints FINDINGS: Mild sclerosis in the inferior aspect of the sacroiliac joints, left greater than the right side. There is a prominent right lateral transverse processes of L5 abutting the right S1. Marginal osteophyte formation and endplate sclerosis with decreased intervertebral disc height at L4-5 and L5-S1. Degenerative changes in the symphysis pubis. No acute cortical disruption. No lytic or blastic lesions. Focal calcifications overlapping the right mid sacrum. XR/XR sacroiliac joint min 3V IMPRESSION: Mild left-sided sacroiliitis. 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 Electronically signed by: Jose Pool MD 01/22/2025 08:03 AM EDT
== END 2025-01-21 10:12 | disposition home or self-care (01) ==
LOC: HO.XRAY 10:11
PROVIDERS: Visit Provider Internal Medicine Rheumatology
DX: M79.18 Myalgia, other site (principal)
CPT/HCPCS: 72202

== ENCOUNTER → 2025-01-21 11:59 | Outpatient (BNV) | payer OTHER, SELFPAY | PROVIDERS: Visit Provider Radiology Diagnostic Radiology | DX: M79.18 Myalgia, other site (principal) | CPT/HCPCS: 72202 ==

== ENCOUNTER 2025-02-06 09:49 | Outpatient (AMB) | payer OTHER, SELFPAY ==
--- NOTE | 2025-02-06 09:52 | A.OFFVIS_ITS ---
Vital Signs 02/06/25 09:54 Height 5 ft 4 in Weight 165 lb 5.547 oz BMI 28.4 BP 120/76 Blood Pressure Location Lt brachial Position Sitting Pulse 76 Pulse Source Pulse Oximeter Pulse Oximetry (%) 99 Oxygen Delivery Method Room Air Intake Visit Reasons: 02/06 Intake Note: Pt is present today for rheumatoid arthritis follow up. Accompanied by: Self / Same As Patient Allergies erythromycin base Allergy (Verified 01/21/25 10:25) Hives etanercept [From Enbrel] Adverse Reaction (Intermediate, Verified 01/21/25 10:2 5) diverticulitis leflunomide Adverse Reaction (Intermediate, Verified 01/21/25 10:25) diverticulitis prednisone Adverse Reaction (Intermediate, Verified 01/21/25 10:25) Body pain HPI HPI 02/06: Details: She had CT chest 12/05/2024 for assessment of pulmonary nodules. I have reviewed report from patient's portal access. CT chest/abdomen/pelvis reports there are few small bilateral pulmonary nodules. For example, there is a subpleural nodule measuring 6 mm within the right upper lobe posteriorly as well as the 5 mm left apical nodule. Radiologist recommends follow-up study in 6 months to confirm stability. She had a spinal epidural Lumbar spine from Dr. Michael yesterday. After starting meloxicam she has noted a nodule in her left axillary. Ultrasound has been ordered within [facility]. Meloxicam has not helped reduce her pain. She continues to have left wrist swelling. She had bilateral knee cortisone injections from orthopedic surgery 3 weeks ago. 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 Good respiratory effort Skin: No lesions seen MSK: Tender right wrist with synovitis present. Tender MCPs, interphalangeal joints and PIPs bilateral hands. Tender bilateral shoulders. Tender bilateral MTPs. She has normal range of motion of upper extremities and lower extremities. Assessment & Plan Assessment & Plan (1) Rheumatoid arthritis with positive rheumatoid factor: Comment: Inflammatory arthritis is not controlled. We discussed next steps with treatment with considering Orencia SC. Discussed side effects, benefits and drug monitoring. Recent lipid panel was normal but patient reports she has intermittent elevation in cholesterol. I will avoid Actemra at this time. Meloxicam is not effective. I will change NSAID. Rheumatology history: Seropositive. RF 113. CCP>250. Diagnosed October 2020. Methotrexate 10/25 -05/2021 -d/c due to LFT elevations. 05/2021 - Humira started - ?improvement. 08/2022 Humira stopped for wrist surgery. leflunomide 04/2023- 05/2024 DC due to diverticulitis. Enbrel 05/2023 DC 06/2023 due to diverticulitis Remicade 04/2024 DC after 1 dose as patient had a positive QuantiFERON test. Latent TB treatment with Rifampin completed 4 months tx on 09/11/2024. CXR 05/2024 no acute pulmonary process. CT chest 12/05/2024 reveals there are few small bilateral pulmonary nodules, subcentimeter (follow-up recommended in 6 months to document stability). She reports that she had tremors and felt unwell on Remicade. History of intermittent hyperlipidemia. Prednisone causes myalgias. Methylprednisolone causes arthralgias. Meloxicam ineffective. Code(s): M05.9 - Rheumatoid arthritis with rheumatoid factor, unspecified Category: Medical Qualifiers: Rheumatoid arthritis location: multiple sites Qualified Code(s): M05.79 - Rheumatoid arthritis with rheumatoid factor of multiple sites without organ or systems involvement Plan: Stop meloxicam Start celecoxib 200 mg twice a day Orencia 125 mg Q weekly subcutaneous pen PA. once it is approved, she will need to be scheduled for nurse teaching visit. She will then need labs 1 month after nurse teaching visit: CBC, creatinine, AST, ALT. Patient will call office if right wrist pain and swelling worsens for an appointment for cortisone injection Return to clinic in 3 months Medications: New celecoxib 200 mg PO BID 60 caps 2RF abatacept (Orencia ClickJect) Labs due 4 weeks after starting Orencia. First dose administration in office. Patient needs to schedule nurse teaching visit. 125 mg subcut QWEEK 4 mL 0RF Discontinued meloxicam Discontinued Reason: Doctor's Order 15 mg PO DAILY 30 tabs 2RF Coding Level of Care Code Est Pt Level 4 (01216) Complex EM visit Add On G2211 Diagnoses Rheumatoid arthritis involving multiple sites with positive rheumatoid factor M05.79 Rheumatoid arthritis location: multiple sites
[2025-02-06 09:54] VITALS: BP 120/76; PULSE 76; O2SAT 99; BMI 28.4
--- OUTSIDE RECORDS SUMMARY | 2025-02-06 10:24 | XMS_ITS | Encounter Summary ---
Author Organization [facility] Address [address] [place] [address] Care Team Providers Care Die Inspector Name Role Phone Araceli Augustin Primary Care Provider + Encounter Details Date Type Department Care Team (Latest Contact Info) Description 02/04/2025 6:58 AM EDT - 02/04/2025 11:59 PM EDT Hospital Encounter [facility] Xray [address] [place] [id number] Pain Discharge Disposition: Home or Self Care Social [...] AM EDT documented as of this encounter Functional Status [...] docusate sodium (COLACE) 100 mg capsule 12/17/2024 ibuprofen (ADVIL,MOTRIN) 600 mg tablet 12/17/2024 melatonin 10 mg tablet Take 1 tablet (10 mg total) by mouth. meloxicam (MOBIC) 15 mg tablet Take 1 tablet (15 mg total) by mouth 1 (one) time each day. methocarbamoL (ROBAXIN) 750 mg tablet 1 tablet (750 mg total) 4 (four) times a day if needed. sucralfate (CARAFATE) 1 gram tablet Take 1 tablet (1 g total) by mouth 4 (four) times a day. Take 1 hour before meals and at bedtime 120 each 11 11/20/2024 11/20/2025 documented as of this encounter Discharge Disposition Disposition Code Departure Means Destination Home or Self Care documented in this encounter Plan of Treatment Upcoming Encounters Date Type Department Care Team (Late st Contact Info) Description 02/08/2025 12:30 PM EDT Appointment [facility] Ultrasound [address] [place] [address] 04/10/2025 11:00 AM EDT Telemedicine [facility] [place] [facility] [place] [address] [place] [phone] Mary Manzanares MD [address] [place] [address] documented as of this encounter Procedures Procedure Name Priority Date/Time Associated Diagnosis Comments XR FLUORO UP TO 1 HOUR Routine 02/04/2025 8:55 AM EDT Pain documented in this encounter Results * XR Fluoro Up To 1 Hour (02/04/2025 8:55 AM EDT) Anatomical Region Laterality Modality Body Radio Fluoroscop y 02/04/2025 12:5 1 PM EDT Impressions 02/04/2025 12:53 PM EDT Imaging assistance provided during a pain management procedure. -------- FINAL REPORT -------- Dictated By: Alexey Morton Dictated Date: 02/04/2025 12:51 ET Assigned Physician: Alexey Morton Reviewed and Electronically Signed By: Alexey Morton Signed Date: 02/04/2025 12:53 ET Workstation ID: [id number] Transcribed By: Self Edit Transcribed Date: 02/04/2025 12:51 ET Narrative 02/04/2025 12:53 PM EDT EXAMINATION: Imaging assistance provided during a procedure CLINICAL INFORMATION: Pain. Lumbar epidural injection. COMPARISON: None. TECHNIQUE: PAIN MANAGEMENT-Imaging assistance was provided during a pain management procedure. Cumulative dose: 3.52 mGy Fluoroscopy time: 14.1 seconds FINDINGS: Detail limited. Images demonstrate a needle at the L5/S1 level with some opaque contrast. Procedure Note Alexey Morton MD - 02/04/2025 EXAMINATION: Imaging assistance provided during a procedure CLINICAL INFORMATION: Pain. Lumbar epidural injection. COMPARISON: None. TECHNIQUE: PAIN MANAGEMENT-Imaging assistance was provided during a pain managementprocedure. Cumulative dose: 3.52 mGy Fluoroscopy time: 14.1 seconds FINDINGS: Detail limited. Images demonstrate a needle at the L5/S1 level with someopaque contrast. IMPRESSION: Imaging assistance provided during a pain management procedure. -------- FINAL REPORT -------- Dictated By: Alexey Morton Dictated Date: 02/04/2025 12:51 ET Assigned Physician: Alexey Morton Reviewed and Electronically Signed By: Alexey Morton Signed Date: 02/04/2025 12:53 ET Workstation ID: [id number] Transcribed By: Self Edit Transcribed Date: 02/04/2025 12:51 ET us Tutu Trivedi MD IMG FLUOROSCOPY PROCEDURES Fin al Result documented in this encounter Visit Diagnoses Diagnosis Pain Generalized pain documented in this encounter Care Teams Die Inspector Relationship Specialty Start Date End Date Araceli Augustin PA [address] [place] [phone] PCP - General 11/20/24 documented as of this encounter
--- OUTSIDE RECORDS SUMMARY | 2025-02-06 10:24 | XMS_ITS ---
Author Organization [facility] Address [address] [place] [address] Care Team Providers Care Peoplesoft Analyst Name Role Phone IKER ROBLERO Unavailable [phone] REASON FOR VISIT balance Encounters Encounter Location Date Provider Diagnosis [address] [facility] [address] [place] [address] 02/03/2025 IKER ROBLERO PLAN OF TREATMENT Next Appt Details Provider Name:IKER Nichols, 02/13/2025 01:00:00 PM, [address] [facility], [address], [place], [address], Progress Notes * David OLSONOB:1965 (59 yo F)Acc No.[id number]:02/03/2025 Patient:??María OLSON :1965?Age:59 Y?Sex:Fe male Address:[address], [place] [address] * true * Date:??
--- OUTSIDE RECORDS SUMMARY | 2025-02-06 10:24 | XMS_ITS ---
Author Organization [facility] Address [address] [place] [address] Care Team Providers Care Spinner Concrete Pipe Name Role Phone IKER ROBLERO Unavailable [phone] REASON FOR VISIT Urg Encounters Encounter Location Date Provider Diagnosis [address] [facility] [address] [place] [address] 02/03/2025 IKER ROBLERO PLAN OF TREATMENT Next Appt Details Provider Name:IKER Nichols, 02/13/2025 01:00:00 PM, [address] [facility], [address], [place], [address], Progress Notes * David OLSONOB:1965 (59 yo F)Acc No.[id number]:02/03/2025 Patient:??María OLSON :1965?Age:59 Y?Sex:Fe male Address:[address], [place] [address] * true * Date:??
--- OUTSIDE RECORDS SUMMARY | 2025-02-06 10:24 | XMS_ITS | Encounter Summary ---
Author Organization [facility] Address [address] [place] [address] Care Team Providers Care Workforce Consultant Name Role Phone Araceli Augustin Primary Care Provider + Reason for Referral * Imaging (Routine) - Pending Review Specialty Diagnoses / Procedures Referred By Corine strange Referred To Contact Radiology Diagnoses Encounter for screening mammogram for malignant neoplasm of breast Procedures [facility] Mammo Digital Screening w Araceli Lane PA [address] [address] Phone: tel: fax: [address] [phone] Phone: tel: Referral ID Status Reason Start Date Expiration Date V isits Requested Visits Authorized [id number] Pending Review 01/30/2025 01/30/2026 1 1 Reason for Visit * Imaging (Routine) - Pending Review Specialty Diagnoses / Procedures Referred By Corine strange Referred To Contact Radiology Diagnoses Encounter for screening mammogram for malignant neoplasm of breast Procedures MG Mammo Digital Screening w SgAraceli Marcos PA [address] [address] Phone: tel: fax: [address] [phone] Phone: tel: Referral ID Status Reason Start Date Expiration Date V isits Requested Visits Authorized [id number] Pending Review 01/30/2025 01/30/2026 1 1 Encounter Details Date Type Department Care Team (Latest Contact Info) Description 02/05/2025 10:22 AM EDT - 02/05/2025 11:59 PM EDT Hospital [facility] [address] [phone] Encounter for screening mammogram for malignant neoplasm of breast Discharge Disposition: Home or Self Care Social [...] - Inhaled Oxygen Concentration - - Weight 74.8 kg (165 lb) 02/05/2025 10:33 AM EDT Height 162.6 cm (5' 4 ) 02/05/2025 10:33 AM EDT Body Mass Index 28.32 02/05/2025 10:33 AM EDT documented in this encounter Functional [...] of Assessment Author No 12/14/2024 7:39 PM Tarcee Cassidy RN * Do you have serious [...] Info) Description 02/08/2025 12:30 PM EDT Appointment [facility] Ultrasound [address] [place] [phone] 04/10/2025 11:00 AM EDT Telemedicine [facility] [address] [facility] [address] [place] [phone] Mary Manzanares MD [address] [place] [address] documented as of this encounter Procedures Procedure Name Priority Date/Time Associated Diagnosis Comments MG MAMMO DIGITAL SCREENING W SG BILAT Routine 02/05/2025 10:40 AM EDT Encounter for screening mammogram for malignant neoplasm of breast documented in this encounter Results * MG Mammo Digital Screening w Sg bilat (02/05/2025 10:40 AM EDT) Anatomical Region Laterality Modality Breast Bilateral Mammography 02/06/2025 9:43 AM EDT Impressions 02/06/2025 9:45 AM EDT No evidence of breast malignancy. BI-RADS CATEGORY: 1 - NEGATIVE RECOMMENDATION: Screening bilateral mammogram is recommended in 1 year. Mammo Location: [facility], [address], [place], [address], . -------- FINAL REPORT -------- Dictated By: Stefani Zamora Dictated Date: 02/06/2025 09:43 ET Assigned Physician: Stefani Zamora Reviewed and Electronically Signed By: Stefani Zamora Signed Date: 02/06/2025 09:45 ET Workstation ID: [id number] Transcribed By: Self Edit Transcribed Date: 02/06/2025 09:43 ET Narrative 02/06/2025 9:45 AM EDT CLINICAL: 59 years old, Female, routine annual exam. COMPARISON: 06/02/2023 and 02/27/2019 ?? TECHNIQUE: Bilateral MLO and CC views were obtained digitally with 3-D mammogram (digital breast tomosynthesis). Computer-aided detection was utilized in evaluation of this exam (CAD). FINDINGS: There is no evidence of suspicious mass or architectural distortion. ??No worrisome calcifications are evident. ??There has been no significant change from prior exam(s). ?? BREAST DENSITY: A - The breasts are almost entirely fatty. Procedure Note Stefani Zamora MD - 02/06/2025 CLINICAL: 59 years old, Female, routine annual exam. COMPARISON: 06/02/2023 and 02/27/2019 TECHNIQUE: Bilateral MLO and CC views were obtained digitally with 3-Dmammogram (digital breast tomosynthesis). Computer-aided detection wasutilized in evaluation of this exam (CAD). FINDINGS: There is no evidence of suspicious mass or architectural distortion. Noworrisome calcifications are evident. There has been no significantchange from prior exam(s). BREAST DENSITY: A - The breasts are almost entirely fatty. IMPRESSION: No evidence of breast malignancy. BI-RADS CATEGORY: 1 - NEGATIVE RECOMMENDATION: Screening bilateral mammogram is recommended in 1 year. Mammo Location: [facility], [address] [place] [address], [id number], . -------- FINAL REPORT -------- Dictated By: Stefani Zamora Dictated Date: 02/06/2025 09:43 ET Assigned Physician: Stefani Zamora Reviewed and Electronically Signed By: Stefani Zamora Signed Date: 02/06/2025 09:45 ET Workstation ID: [id number] Transcribed By: Self Edit Transcribed Date: 02/06/2025 09:43 ET Araceli BOOTHE IMG BI PROCEDURES Final Result documented in this encounter Visit Diagnoses Diagnosis Encounter for screening mammogram for malignant neoplasm of breast documented in this encounter Care Teams Workforce Consultant Relationship Specialty Start Date End Date Araceli Augustin PA [address] [place] [phone] PCP - General 11/20/24 documented as of this encounter
--- OUTSIDE RECORDS SUMMARY | 2025-02-06 10:24 | XMS_ITS | Encounter Summary ---
Author Organization [facility] Address [address] [place] [address] Care Team Providers Care Hand Violin Maker Name Role Phone Araceli Augustin Primary Care Provider + Reason for Referral * Pain Management (Routine) - Authorized Specialty Diagnoses / Procedures Referred By Contac t Referred To Contact Pain Medicine Diagnoses Radiculopathy, lumbar region Procedures Injection epidural lumbar without guidance Tutu Trivedi MD [address] [place] [address] Phone: tel: fax: Referral ID Status Reason Start Date Expiration Date V isits Requested Visits Authorized [id number] Authorized 01/24/2025 01/24/2026 1 1 Reason for Visit * Pain Management (Routine) - Authorized Specialty Diagnoses / Procedures Referred By Contac t Referred To Contact Pain Medicine Diagnoses Radiculopathy, lumbar region Procedures Injection epidural lumbar without guidance Tutu Trivedi MD [address] [place] [address] Phone: tel: fax: Referral ID Status Reason Start Date Expiration Date V isits Requested Visits Authorized [id number] Authorized 01/24/2025 01/24/2026 1 1 Encounter Details Date Type Department Care Team (Latest Contact Info) Description 02/04/2025 7:42 AM EDT Hospital Encounter [facility] Pain Management [address] [place] [address] Tutu Trivedi MD [address] [place] [address] Radiculopathy, lumbar region Social History Tobacco Use Types Packs/Day [...] Sign Reading Time Taken Comments Blood Pressure 106/68 02/04/2025 8:51 AM EDT Pulse 66 02/04/2025 8:51 AM EDT Temperature 36.4 ??C (97.5 ??F) 02/04/2025 8:51 AM ED T Respiratory Rate 16 02/04/2025 8:51 AM EDT Oxygen Saturation 100% 02/04/2025 8:51 AM EDT Inhaled Oxygen Concentration - - Weight - - Height - - Body Mass Index - - documented in this encounter Functional Status * [...] Tracee Cassidy RN documented in this encounter Procedure Notes * Ivon Archibald RN - 02/04/2025 8:[address] Trivedi in to see patient. * Ivon Archibald RN - 02/04/2025 8:15 AM EDT Discharge instructions reviewed with good understanding. * Tutu Trivedi MD - 02/04/2025 8:15 AM EDT INTERLAMINAR EPIDURAL STEROID INJECTION Tutu Trivedi MD Anesthesia: local Preop Diagnosis: Lumbar Radiculopathy Postop Diagnosis: same Patient presents for a lumbar epidural injection. The patient is not considered to be a candidate for surgical intervention at this point. The patient has not experienced satisfactory relief from other treatment modalities such as anti- inflammatory medications, analgesic pain medications, physical therapy, and a home exercise program. The risks, benefits and alternatives of lumbar epidural steroid injection were discussed with the patient. The patient understands that this is an invasive procedure and therefore there are inherent risks. The patient was informed of the risks of the procedure including but not limited to infection, bleeding, injury to nearby tissues, vessels, and nerves, paralysis of one or more limbs, stroke, transient headache, no decrease in pain or worsened pain, heart attack and . In rare cases, a blood patch is necessary to alleviate a headache if the dura was punctured. The steroid portion of theinjection may cause hot flashes for a few days, possible avascular necrosis of the hip, fluid retention, mood swings, and a transient rise in blood glucose. Cataracts and severe arthritis of the hipsor shoulders are a rare complication of prolonged or excessive use of steroids. No certain guarantees have been made and patient understand that responses can vary and multiple procedures may be necessary. The patient was informed that one or more of their extremities could feel heavy or weak for 6-8 hours after the procedure, and that they should have assistance with ambulation and not drive during that time. A timeout procedure was performed according to protocol after positioning and prepping the patient in the usual sterile fashion. The patient was identified, the correct side and site(s) of the procedure was confirmed, and all necessary equipment was available. Fluoroscopic Guidance was performed, and images were saved into our system. The use of direct fluoroscopic visualizations of the needle (rather than a palpation-guided procedure) was required to ensure accurate needle and injection placement, in order for diagnostic specificity when evaluating effectiveness of the injection, and for safety purposes to minimize risk of bleeding or injury to nearby neurovascular structures. The overlying skin was prepped with Duraprep The patient was identified and timeout confirmed the correct site(s) for the procedure(s). The patient was positioned. The fluoroscope was then used to produce a clear image of the lumbar spine. The appropriate interlaminar space was identified. The skin over the L5/S1 interspace was infiltrated with anesthetic. A Tuohy epidural needle was directed toward interlaminar space under fluoroscopic guidance without resistance. Fluoroscopy confirmed the position of the needle in the epidural space. Loss of resistance technique was utilized to identify entrance of the needle into the epidural space. Negative aspiration was confirmed. Good flow was visualized along the suspect lumbar spinal nerve and into the epidural space. After negative aspiration, steroid and anesthetic were injected. The L5/S1 level was injected with 1 ml of Isovue, 2 ml of 1% lidocaine without epinephrine for eachinjection, using a 20 gauge 10 cm Tuohy needle. Resistance performed using loss of air. A total of 80 mg of Methylprednisolone acetate (Depo-Medrol), 80mg was injected. Local infiltrationinto the skin was achieved with 5 ml of 1% lidocaine without epinephrine. Postcare: Patient can resume activities as tolerated. Please contact the office if you develop headache or fever, have difficulty with bowel or bladder function, or have redness or bruising at the injection site. documented in this encounter Plan of Treatment Upcoming Encounters Date Type Department Care Team (Late st Contact Info) Description 02/08/2025 12:30 PM EDT Appointment [facility] Ultrasound [address] [place] [address] 04/10/2025 11:00 AM EDT Telemedicine [facility] [address] [facility] [address] [place] [address] Mary Manzanares MD [address] [place] [address] Scheduled Orders Name Type Priority Associated Diagnoses Orde r Schedule Injection epidural lumbar without guidance Procedures Routine Radiculopathy, lumbar region Once for 1 Occurrences starting 02/04/2025 until 02/04/2025 documented as of this encounter Visit Diagnoses Diagnosis Radiculopathy, lumbar region Thoracic or lumbosacral neuritis or radiculitis, unspecified documented in this encounter Administered Medications Inactive Administered Medications - up to 3 most recent administrations Medication Order MAR Action Action Date Dose Rate Site iopamidoL (ISOVUE-300) 300 mg iodine /mL (61 %) solution As needed, Starting on Mon02/04/25 at 0843, Intraprocedure Given 02/04/2025 8:43 AM EDT 1 mL lidocaine (XYLOCAINE) 2 % injection As needed, Starting on Mon02/04/25 at 0841, Intraprocedure Given 02/04/2025 8:41 AM EDT 5 mL methylPREDNISolone acetate (DEPO-Medrol) injection As needed, Starting on Mon02/04/25 at 0844, Intraprocedure Given 02/04/2025 8:44 AM EDT 80 mg documented in this encounter Historical Medications * This list may reflect changes made after this encounter. meloxicam (MOBIC) 15 mg tablet Take 1 tablet (15 mg total) by mouth 1 (one) time each day. added in this encounter Care Teams Hand Violin Maker Relationship Specialty Start Date End Date Araceli Augustin PA [address] [facility] [address] [place] [address] PCP - General 11/20/24 documented as of this encounter
--- OUTSIDE RECORDS SUMMARY | 2025-02-06 10:24 | XMS_ITS ---
Author Organization [facility] Address [address] [facility] [address] [place] [address] Care Team Providers Care Information Director Name Role Phone LINDA KHAN Primary Care Provider [phone] Hugo Plata Unavailable [phone] REASON FOR VISIT Excruciating pain Encounters Encounter Location Date Provider Diagnosis [facility] [address] [facility] [address] [place] [address] 10/21/2024 Hugo Plata Rib pain on right side R07.81 Assessments Encounter Date Diagnosis (ICD Code) Assessment Notes Treatment Notes Treatment Clinical Notes Section Notes 10/21/2024 Rib pain on right side (ICD-10 - R07.81) Plan Of Treatment No Information Progress Notes * MIS OLSONOB:1965 (59 yo F)Acc No.[id number]:10/21/2024 Patient:?MARCUS OLSON :1965???Age:59 Y???Sex:Female Address:[address] [place] [address] Subjective: * Chief Complaints: * ???Excruciating pain * Medical History:? * Surgical History:? * Hospitalization/Major Diagno stic Procedure:? * Medications:? Objective: * Vitals:? * Physical Examination:? Assessment: * Assessment: 1.?Rib pain on right side - R07.81 (Primary)??? Plan: * Treatment: * Procedure Codes:? * true * Date:? Generated for Kareeni cheam/Hilton/eTransmitting on:?02/06/2025 10:24 AM EDT
--- OUTSIDE RECORDS SUMMARY | 2025-02-06 10:24 | XMS_ITS | Encounter Summary ---
Author Organization [facility] Address [address] [place] [address] Care Team Providers Care Pool Nurse Name Role Phone Araceli Augustin Primary Care Provider + Reason for Visit * Reason Comments Follow-up pain Follow-up Pain, most severe Encounter Details Date Type Department Care Team (Late st Contact Info) Description 02/06/2025 8:30 AM EDT Office Visit Orthopedic Surgery - [place] [address] [place] [phone] Nichelle Archibald PA [address] [place] [phone] Social History Tobacco Use Types Packs/Day Years [...] - - Weight 74.8 kg (165 lb) 02/06/2025 8:35 AM EDT Height 162.6 cm (5' 4 ) 02/06/2025 8:35 AM EDT Body Mass Index 28.32 02/06/2025 8:35 AM EDT documented in this encounter Functional [...] Info) Description 02/08/2025 12:30 PM EDT Appointment [facility] Ultrasound [address] [place] [address] 04/10/2025 11:00 AM EDT Telemedicine [facility] [address] [facility] [address] [place] [phone] Mary Manzanares MD [address] [place] [address] documented as of this encounter Visit Diagnoses Not on filedocumented in this encounter Care Teams Pool Nurse Relationship Specialty Start Date End Date Araceli Augustin PA [address] [phone] PCP - General 11/20/24 documented as of this encounter
--- OUTSIDE RECORDS SUMMARY | 2025-02-06 10:24 | XMS_ITS | Data Portability ---
Author Organization [facility] Address [address] [place] [address] Care Team Providers Care Enamel Finisher Name Role Phone [facility] Primary Care Provi ramses Assessment No assessment recorded. Plan of Treatment Reminders Order Date Submit Date Provider Last Modified By Organization Details Last Modified Time Details Appointments None recorded. Lab rapid strep group A, throat 2022 023 [email or web address] [facility], [address] [place] [address], [phone], 3 19:09:54 streptococc us group A, culture, throat [email or web address] [facility], [address] [place] [address], [place], [address], 3 19:09:54 Referral emergency medicine referral - left lower facial weakness and numbness x 5 days [email or web address] Emergency Department, [address] [place], [address], 4 18:35:48 Procedures None recorded. Surgeries None recorded. Imaging None recorded. Medication Orders prednisone 20 mg tablet 2022 023 [email or web address] 5 [id number], [address] [place], [address], 4 16:05:23 benzonatate 200 mg capsule 2022 023 [email or web address] 5 [id number], [address] [place], [address], 16:05:13 Patient TargetsNo targets recorded. Patient Instructions Encounter Date Encounter Id Patient Instructions Last Modified By Organization Details Last Modified Time 12/17/2022 [id number] sore throat: car e instructions [email or web address] Not [...] care for yourself at home? Take an vefq-jqs-bsvvrhn pain medicine. Avoid Ibuprofen, Aleve and Aspirin if . If the doctor prescribed antibiotics, take them as directed. Do not stop taking them just because you feel better. You need to take the full course of antibiotics. Be careful when taking wosy-bpq-llcpdfs cold or influenza (flu) medicines and Tylenol [...] congestion worse. Not available 12/17/2022 19:07:18 05/19/2024 [id number] head or face zehra n: care instructions [...] Range : Negat aashish Not Available [facility] ([facility]) [address] [facility], [place], [address], 12/21/2022 06:07:48 12/17/1912/17/2022 rapid strep group A, throa t Unknown Analyte Normal = Negati ve Not Available [facility] [address] [place], [address], 12/17/2022 18:34:11 12/17/1912/17/2022 rapid strep group A, throa t Unknown Analyte negati ve Not Available [facility] [address] [place] [address], [phone], 12/17/2022 18:34:11 Result Notes None recorded. Problems Name Problem SNOMED Code Status Onset Date Resolution Date Notes Provider Name and Address Organization Details Recorded Time Rheumatoid arthritis 12034294 Active Nella Ayla null, [place] - [facility] 4 16:05:45 Numbness of face 204214026 Active 2023 Juan F Noe, DO [address] , [place], [address] , [place] - [facility] 4 16:17:43 Anxiety 49180189 Active 2022 ANNETTE LUPICA null, PA - [facility] 3 18:38:17 Hyperthyroidis m with Rock disease 39208343 Active 2022 ANNETTE LUPICA null, PA - [...] Name and Address Organization Details Recorded Time 233059 erythromy libby medicatio n hives Not available [...] Updated DateTime 4 162.56 cm 27.5 kg/m2 43962.7 8 g 5 97.9 [degF] 18 /min [...] Updated DateTime 3 162.56 cm 27.5 kg/m2 01841.7 8 g 97 [degF] 16 /min 98 [...] Much Tobacco Do You Smoke? 0.5 PPD [email or web address] Information not available 12/17/2022 Do You Use Any Illicit Or Recreational Drugs? No [email or web address] Information not available 12/17/2022 Have You Recently Traveled Abroad? No [email or web address] Information not available 12/17/2022 Do You Or Have You Ever Used Any Other Forms Of Tobacco Or Nicotine? No [email or web address] Information not available 12/17/2022 Sex: Unknown Functional Status None recorded. Mental Status None recorded. Family History Relationship Description Onset Age of this Age Resolved Age Notes LastModified by Organization Details LastModified Time Unspecified Relation Disorder of thyroid gland [email or web address] Not available 2022 18:38:50 Medical History No [...] SNOMED-CT Code Diagnosis ICD10 Code Diagnosis Note [id number] [place] [address] [place] [address] 12/17/2022 17:31:11 12/17/2022 19:17:28 Sore throat 001302082 J02.9 [id number] [place] [address] [phone] 05/19/2024 15:59:19 05/19/2024 16:21:39 Numbness of face 180215106 R20.0 ER now !!! Health Concerns Section [...] - DOS ON OR BEFORE 11/05/2023 - [facility] (PPO) María Phillips [id number] María Phillips 05/19/2024 1 [facility] - DOS PRIOR TO 2024 (PPO) María Phillips [id number] HA María Phillips Notes Date Note Type [...] Narendra Diaz NP [address] [place], [address], [place] - [facility] 12/17/2022 19:11:14 4 text/html a couple of weeks. twitching in face. x5 days having facial pain. pain level is 5/10. feels slight numbness on left side of mouth. patient also notices lower facial weakness as well. no chest pain. has slight head ache Juan F Noe, DO [address] [place], [address], [place] - [facility] 05/19/2024 16:42:19 OBGyn Episode No OBEpisode recorded.
--- OUTSIDE RECORDS SUMMARY | 2025-02-06 10:25 | XMS_ITS | Patient Health Record ---
Author Organization [facility] Address [address] [place] [address] Care Team Providers Care Audio Video Repairer Name Role Phone IKER ROBLERO Unavailable [phone] CHINO YBARRA Unavailable [phone] ALLERGIES Allergen (clinical drug ingredient) Drug/Non Drug [...] 0.87 0.50-1.10 mg/dL eGFR 78 >=60 mL/min/1.73m2 Calculation based on the?Chronic Kidney Disease Epidemiology Collaboration [...] to be calibrated downward. CAMILO IFA WITH TITER AND GIOVANNA SAMSON Reviewed date:11/01/2024 07:38:11 AM Interpretation: Performing Lab: Notes/Report: CAMILO Negative Negative XR CERVICAL SPINE 4-5 VIEWS Reviewed date:11/19/2024 04:14:57 PM Interpretation: Performing Lab: Notes/Report: Note See Note [facility], a member of [employer] Patient Name: MARÍA PHILLIPS Date of : 1965 Reason for Exam: OTHER Exam Date: 11/18/2024 [id number] EST Report Status: Final Ordering Provider: IKER [...] to the prior neck CTA. [place] ([id number]) -------- FINAL REPOR T -------- Dictated By: Dayami Walker i Dictated Date: 11/19/2024 13:40 ET Assigned Physician: Dayami Diehl Reviewed and Electronically Signed By: Dayami Diehl Signed Date: 025 13:45 ET Workstation ID: [id number] Transcribed By: Self Edit Transcribed Date: 11/19/2024 [...] Interpretation: Performing Lab: Notes/Report: Note See Note [facility], a member of [employer] Patient Name: MARÍA PHILLIPS Date of : 1965 Reason for Exam: DYSPHAGIA Exam Date: 12/26/2024 [id number] EST Report Status: Final Ordering Provider: BARBARA MORRISSEY PCP: IKER ROBLERO FINDINGS: Double contrast esophagram performed. COMPARISON: Esophagr am March 04, 2022 HISTORY: Patient is a 59-year-old female with history of globus sensation. Epigastric pain. Education Analyst radiographs: 1 view chest radiograph demonstrates [...] Signed Date: 025 08:28 ET Workstation ID: [id number] Transcribed By: Self Edit Transcribed Date: 12/26/2024 13:36 ET Resident/PA/DIETITIAN HELPER: Lidia Godinez XR SHOULDER 2+ VIEWS BILAT Reviewed date:01/08/2025 05:02:44 PM Interpretation: Performing Lab: Notes/Report: Note See Note [facility], a member of [employer] Patient Name: MARÍA PHILLIPS Date of : 1965 Reason for Exam: bilateral shoulder pain Exam Date: 01/08/2025 [id number] EST Report Status: Final Ordering Provider: CAMILO CARRILLO PCP: IKER ROBLERO Date of Visit: 01/08/2025 Reason for visit: Bilateral shoulder pain Views: AP, Grashey, Y, axillary bilateral shoulders Comparison: None Findings: Right shou lder narrowing of subacromial space. No proximal migration of the hum eral head. There is a calcification adjacent greater tuberosity. Mild inferior glenohumeral arthritis noted. Left shoulder no significant arthriti s. No proximal migration of the humeral head. There is narrowing of subacromial space and calcification lateral to the greater tuberosity. Impression: Right shoulder mild glenohumeral arthritis. Calcification and narrowing of subacro mial space. ibrinous base . Left shoulder calcific tendinitis and narro wing of subacromial space URINALYSIS WITH REFLEX MICRO SCOPIC AND CULTURE Reviewed date:01/21/2025 02:02:02 PM Interpretation: Performing Lab: Notes/Report: Specific Carman Urine 1.034 1.003-1.030 pH, Urine 6.5 5.0-8.0 pH Leukocytes, Urine Negative Negative Nitrite, Urine Negative Negative Protein, Urine Trace <=Trace mg/dL Glucose, Urine Negative Negative mg/dL Ketones, Urine Negative Negative mg/dL Urobilinogen, Urine 0.2 0.2-1.0 mg/dL Bilirubin, Urine Negative Negative Blood, Urine Negative Negative XR KNEE 4+ VIEWS BILAT Reviewed date:01/27/2025 08:06:07 AM Interpretation: Performing Lab: Notes/Report: Note See Note [facility], a member of [employer] Patient Name: MARÍA PHILLIPS Date of : 1965 Reason for Exam: ilateral knee pain Exam Date: 01/22/2025 [id number] EST Report Status: Final Ordering Provider: CELIA ROMO PCP: IKER ROBLERO 4 views bilateral kn ees obtained today including AP, Gomez, lateral, sunrise were reviewed. Right knee x-rays sh ow mild degenerative change involving medial, lateral, patellofemoral compartments with minimal joint space narrowing, small marginal space, subchondral sclerosis. No fracture, malalignment, or obvious bony lesions . No significant effusion. Fairly neutral alignment. Left knee x-rays rubén w moderate degenerative changes involving the lateral and patellofemoral compartment including partial joint space narrowing, small marginal space , subchondral sclerosis. Mild degenerative changes medial compartment. Evidence of prior tibial and femoral tunnels. Superolateral femora l button. Small loose body within the intercondylar notch. No seeming effusion. Neutral alignment. US HEAD NECK SOFT TISSUE Reviewed date:01/24/2025 01:16:29 PM Interpretation: Performing Lab: Notes/Report: Note See Note [facility], a member of [employer] Patient Name: MARÍA PHILLIPS Date of : 1965 Reason for Exam: cervicalgia Exam Date: 01/24/2025 [id number] EST Report Status: Final Ordering Provider: CHINO YBARRA PCP: IKER ROBLERO [facility]AMINATION: [facility] CLINICAL INFORMATION: Pain. Symptoms for 6 months. COMPARISON: None. TECHNIQUE: High-frequency linea r transducer examination with attention to the area of clinical concern Ultrasound of the thyroid was performed with supplementary color mapping. Targeted high fragil ity linear transducer examination with attention to an area of palpable concern in the right neck, level 2 FINDINGS: QUALITY: Adequate Right neck, area of palpable concern There is a circumscr ibed homogeneous hypoechoic oval mass with long axis parallel. Mild posterior enhancement. There is no definite echogenic fatty hilum. There is no calcification. No suspicious color signal 01/24/25-1.3 cm Although nonspecific this could represent a lymph node. This should be manag ed on the basis of the clinical exam, history and any pertinent laboratory values The right lobe of th e thyroid measures: 4.7 x 1.8 x 1.9 cm Previous measurement : No previous available Right lobe contour: The right lobe contour is smooth. Right lobe echogenic ity: Homogeneous Right lobe vasculari ty: Normal The left lobe of the thyroid measures: 4.0 x 1.4 x 1.9 cm Previous measurement : No previous available Left lobe contour: T he left lobe contour is smooth. Left lobe echogenici ty: Homogeneous Left lobe vascularit y: Normal Isthmus measures (AP ): 0.5 cm Previous measurement : No previous available Isthmus contour: The isthmic contour is smooth. Isthmus echogenicity : Homogeneous Isthmus vascularity: Normal Masses: No suspicious masses There are tiny small probable cysts in each lobe measuring less than 0.5 cm that did not require any specific imaging follow-up OTHER: Extrathyroidal extension: None Regional lymph nodes : No other enlarged lymph nodes demonstrated IMPRESSION: The thyroid appears within normal limits. In the area of palpa ble concern there is an oval hypoechoic mass with circumscribed margins measuring 0.5 cm in short axis. This could represent a lymph node but is not entirely specific. This should be managed on a clinical basis -------- FINAL REPOR T -------- Dictated By: Alexey Vera Dictated Date: 01/24/2025 07:55 ET Assigned Physician: Alexey Morton Reviewed and Electronically Signed By: Alexey Morton Signed Date: 025 08:00 ET Workstation ID: [id number] Transcribed By: Self Edit Transcribed Date: 01/24/2025 07:[address] SINUSES WO CONTRAST Reviewed date:01/24/2025 12:18:38 PM Interpretation: Performing Lab: Notes/Report: Note See Note [facility], a member of [employer] Patient Name: MARÍA PHILLIPS Date of : 1965 Reason for Exam: deviated septum,sinonasal polyp Exam Date: 01/24/2025 [id number] EST Report Status: Final Ordering Provider: EDMUND MORRISSEY PCP: IKER ROBLERO PROCEDURE: Noncontra st CT of the paranasal sinuses. HISTORY: deviated septum, sinonasal polyp. TECHNIQUE: CT of the paranasal sinuses without intravenous contrast, with coronal and sagittal reformats. COMPARISON: None. Dose length product: 250 mGy-cm. FINDINGS: The maxillary antra are clear. Infundibula are patent. Slight leftward bowi ng of the lower nasal septum. No cyrus bullosa. The frontal sinuses and frontoethmoidal recesses are clear. The ethmoid air cell s are clear. There is a small muc ous retention cyst in the right posterior sphenoid sinus. Sphenoids are otherwise clear. The mastoids and mid dle ear spaces are clear. Skull base foramina are normal. Trace atheroscleroti c calcification of the carotid siphons. Visualized intracranial structures are otherwise unremarkable. Orbits are normal. Visualized soft tiss ues of the skull base are normal. IMPRESSION: 1. Slight leftward deviation of the inferior nasal septum. 2. Very small mucous retention cyst in the right posterior sphenoid sinus. -------- FINAL REPOR T -------- Dictated By: Hever Youssef Dictated Date: 01/24/2025 08:15 ET Assigned Physician: Hever Hutton Reviewed and Electronically Signed By: Hever Hutton Signed Date: 025 08:42 ET Workstation ID: [id number] Transcribed By: Self Edit Transcribed Date: 01/24/2025 08:15 ET XR FLUORO UP TO 1 HOUR Reviewed date:02/04/2025 05:11:16 PM Interpretation: Performing Lab: Notes/Report: Note See Note [facility], a member of [facility] Patient Name: MARÍA PHILLIPS Date of : 1965 Reason for Exam: pain Exam Date: 02/04/2025 [id number] EST Report Status: Final Ordering Provider: DAVID TREJO PCP: IKER ROBLERO EXAMINATION: Imaging assistance provided during a procedure CLINICAL INFORMATION: Pain. Lumbar epidura l injection. COMPARISON: None. TECHNIQUE: PAIN MANAGEMENT-Imag ing assistance was provided during a pain management procedure. Cumulative dose: 3.52 mGy Fluoroscopy time: 14.1 seconds FINDINGS: Detail limited. Imag es demonstrate a needle at the L5/S1 level with some opaque contrast. IMPRESSION: Imaging assistance provided during a pain management procedure. -------- FINAL REPOR T -------- Dictated By: Alexey Vera Dictated Date: 02/04/2025 12:51 ET Assigned Physician: Alexey Morton Reviewed and Electronically Signed By: Alexey Morton Signed Date: 025 12:53 ET Workstation ID: [id number] Transcribed By: Self Edit Transcribed Date: 02/04/2025 12:51 ET MG MAMMO DIGITAL SCREENING W HERACLIO BILAT (Not yet reviewed by provider) Interpretation: Performing Lab: Notes/Report: Note See Note [facility], a member of [facility] Patient Name: MARÍA PHILLIPS Date of : 1965 Reason for Exam: SCREENING Exam Date: 02/05/2025 [id number] EST Report Status: Final Ordering Provider: IKER ROBLERO PCP: IKER ROBLERO CLINICAL: 59 years o ld, Female, routine annual exam. COMPARISON: 3 and 02/27/2019 TECHNIQUE: Bilateral MLO and CC views were obtained digitally with 3-D mammogram (digital breast tomosynthesis). Computer-aided detection was utilized in evaluation of this exam (CAD). FINDINGS: There is no evidence of suspicious mass or architectural distortion. No worrisome calcifications are evident. There has been no significant change from prior exam(s). BREAST DENSITY: A - The breasts are almost entirely fatty. IMPRESSION: No evidence of breas t malignancy. BI-RADS CATEGORY: 1 - NEGATIVE RECOMMENDATION: Screening bilateral mammogram is recommended in 1 year. Mammo Location: [facility], [address] [place] [address], [id number], . -------- FINAL REPOR T -------- Dictated By: Stefani Zamora Dictated Date: 02/06/2025 09:43 ET Assigned Physician: Stefani Zamora Reviewed and Electronically Signed By: Stefani Zamora Signed Date: 025 09:45 ET Workstation ID: [id number] Transcribed By: Self Edit Transcribed Date: 02/06/2025 09:43 ET REASON FOR REFERRAL Reason [facility] Diagnosis 1 Shoulder pain, unspe cified chronicity, unspecified laterality (M25.519) Referral Organization [address] Referring Provider First Name IKER Referring Provider Last Name ANNIKA Referring Provider Speciality Preventive Medicine Referred Provider Specialty Orthopedic S urgery General Notes Letitia Cox 025 10:47:57 AM > Referral faxed over to [facility] for Bilateral shoulder pain P. [phone] Referral Priority Routine MEDICATIONS Medication SIG (Take, Route, Fr equency, Duration) Notes Start Date End Date Status Gabapentin 100 MG 2 capsules Orally tw ice daily for 30 days Active Ibuprofen 600 MG 1 tablet with food o r milk Orally Three times a day for 10 days 12/03/2024 Active LORazepam 1 MG TAKE 1 TABLET BY SUSAN TH 3 TIMES A DAY IF NEEDED FOR ANXIETY FOR UP TO 5 DAYS. MAX DAILY AMOUNT 3 TAB Oral for 5 Days Active Meloxicam 15 MG Oral for 30 Days Active Cetirizine HCl 10 MG 1 tablet Orally Once a day Active Methocarbamol 750 MG 1 tablet Orally twice daily Active traMADol HCl 50 MG 1 tablet as needed f or severe pain Orally every 4-6 hours for 14 days 01/22/2025 Active PROBLEMS Problem Type ICD Code Onset Dates Problem Status W/U Status Risk SNOMED Code Notes Problem Pain in right arm (M79.601) Active confirmed 10566695068014658 Problem Pain in left arm (M79.602) Active confirmed 159397395 Problem Annual physical exam (Z00.00) Active confirmed Annual health maintenance examination (97961996) Problem Vitamin D deficiency (E55.9) Active confirmed Vitamin D defic iency (84549646) Problem Breast cancer screening by mammogram (Z12.31) Active confirmed Screening for malignant neoplasm of breast (032036629) Problem Tremor (R25.1) Active confirmed 4916189 4 Problem Diabetes mellitus screening (Z13.1) Active confirmed Diabetes mellit us screening (651421778) Problem Paresthesias (R20.2) Active confirmed 52206702 Problem Chest pain in adult (R07.9) Active confirmed Chest pain (96789133) Problem Depression with anxiety (F41.8) Active confirmed 259433192 Problem 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 01965657 Problem History of latent tuberculosis (Z86.15) Active confirmed 068586566 Problem History of recent fall (Z91.81) Active confirmed 771131303 Problem Screening for thyroid disorder (Z13.29) Active confirmed Thyroid disorde r screening (794958826) Problem Lipid screening (Z13.220) Active confirmed Lipid screening (865781736) Problem Rheumatoid arthritis involving multiple sites, unspecified whether rheumatoid factor present (M06.9) Active confirmed 118402359 Problem Rheumatoid arthritis involving multiple sites with positive rheumatoid factor (M05.79) Active confirmed 448502377 Problem Neck pain on right side (M54.2) Active confirmed Neck pain (35088114) Problem Lymphadenopathy , axillary (R59.0) Active confirmed Lymphadenopathy (83730012) Problem Anxiety, generalized (F41.1) Active confirmed 48249061 Problem Arm paresthesia, left (R20.2) Active confirmed Skin sensation disturbance (13395671) Problem Cervical spondylosis (M47.812) Active confirmed 790401847 Problem Generalized weakness (R53.1) Active confirmed 26207058 Problem 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 confirmed 160784747 VITAL SIGNS Heart Rate 70 /min 02/03/2025 Blood pressure diastolic 78 mm Hg 02/03/2025 Oximetry 98 % 01/22/2025 Height 61 in 02/03/2025 Blood pressure systolic 118 mm Hg 02/03/2025 Weight 166 lbs 02/03/2025 BMI 31.36 kg/m2 02/03/2025 Encounters Encounter Location Date Provider Diagnosis [address] [address] 11/08/2024 IKER ROBLERO [address] [address] 12/02/2024 IKER ROBLERO Tremor R25.1 ; Cervical spondylosis M47.812 ; Rock's disease E06.3 ; Pain in right arm M79.601 ; Pain in left arm M79.602 ; History of recent fall Z91.81 ; Rheumatoid arthritis involving multiple sites with positive rheumatoid factor M05.79 ; Slipped rib syndrome M94.0 and Depression with anxiety F41.8 [address] [address] 12/04/2024 IKER ROBLERO Tremor R25.1 ; Cervical spondylosis M47.812 ; Rock's disease E06.3 ; Pain in right arm M79.601 ; Pain in left arm M79.602 ; History of recent fall Z91.81 ; Rheumatoid arthritis involving multiple sites with positive rheumatoid factor M05.79 ; Slipped rib syndrome M94.0 and Depression with anxiety F41.8 [address] [address] 10/28/2024 IKER ROBLERO Rheumatoid arthritis involving multiple sites, unspecified whether rheumatoid factor present M06.9 ; Tremor R25.1 ; Slipped rib syndrome M94.0 ; History of latent tuberculosis Z86.15 ; Depression with anxiety F41.8 and Rock's disease E06.3 [address] [address] 11/18/2024 IKER ROBLERO Tremor R25.1 ; Cervical spondylosis M47.812 ; Rock's disease E06.3 ; Pain in right arm M79.601 ; Pain in left arm M79.602 ; History of recent fall Z91.81 ; Rheumatoid arthritis involving multiple sites with positive rheumatoid factor M05.79 ; Slipped rib syndrome M94.0 and Depression with anxiety F41.[address] [place] [address] 01/22/2025 CHINOTODD YBARRA Neck pain on right side M54.2 ; Rheumatoid arthritis involving multiple sites with positive rheumatoid factor M05.79 ; Slipped rib syndrome M94.0 ; Rock's disease E06.3 and Depression with anxiety F41.[address] [place] [address] 02/03/2025 CHINO BIRDOT Lymphadenopathy, axillary R59.0 ; Rheumatoid arthritis involving multiple sites, unspecified whether rheumatoid factor present M06.9 ; Rock's disease E06.3 ; Slipped rib syndrome M94.0 ; Anxiety, generalized F41.1 and Tendon calcification M65.80 [address] [place] [address] 10/29/[address] [facility] [address] [place] [address] 11/04/[address] [facility] [address] [place] [address] 11/07/2024 [facility] [address] [place] [address] 11/19/2024 IKER LEDESMAHAM [address] [place] [address] 12/03/2024 [facility] [address] [place] [address] 12/13/2024 [facility] [address] [place] [address] 12/13/2024 IKER ROBLERO Generalized weakness R53.1 and Paresthesias R20.[address] [place] [address] 12/16/[address] [facility] [address] [facility] [address] [place] [address] 12/26/2024 [facility] [address] [place] [address] 12/31/2024 [facility] [address] [place] [address] 01/02/[address] [facility] [address] [place] [address] 01/07/[address] [place] [address] 01/21/2025 [facility] [address] [place] [address] 01/24/2025 [facility] [address] [place] [address] 02/03/[address] [place] [address] 02/03/2025 [facility] [address] [place] [address] 12/09/2024 [facility] [address] [place] [address] 12/13/2024 [facility] [address] [place] [address] 12/14/2024 [facility] [address] [place] [address] 12/14/2024 [facility] [address] [place] [address] 12/15/2024 [facility] [address] [place] [address] 12/18/2024 [facility] [address] [place] [address] 01/01/2025 [facility] [address] [place] [address] 01/21/2025 [facility] [address] [place] [address] 01/27/2025 [facility] Breast cancer screening by mammogram Z12.31 ASSESSMENTS Encounter Date Diagnosis Assessment Notes Treatment [...] Patient reports history of RA. Follows with divemaster Dr. Clark out of [place]. Has been treated previously with Humira, Enbrel, [...] to the cartilage which creates discomfort with inhalation/exhalatio n. States this was diagnosed by Dr. Dubon out of [place], [place]. Taking methocarbamol 750 mg 3 times daily and gabapentin 100 mg 3 times daily with moderate relief of discomfort. Patient awaiting surgical scheduling for correction. 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 States she has felt many health care [...] 2 to 4 weeks, sooner should any questions/concerns arise. Case discussed with collaborating physician Velia Morrison who has reviewed the assessment/plan. Chart, medications, labs, and vital signs reviewed. Dictation completed with the use of [employer] voice recognition software, prone to medical misidentifications and grammatical errors. All errors are unintentional. [...] Patient reports history of RA. Follows with divemaster Dr. Clark out of [place]. Has been treated previously with Humira, Enbrel, [...] to the cartilage which creates discomfort with inhalation/exhalatio n. States this was diagnosed by Dr. Dubon out of [place], [place]. Taking methocarbamol 750 mg 3 times daily and gabapentin 100 mg 3 times daily with moderate relief of discomfort. Patient awaiting surgical scheduling for correction. 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 States she has felt many health care [...] 2 to 4 weeks, sooner should any questions/concerns arise. Case discussed with collaborating physician Velia Morrison who has reviewed the assessment/plan. Chart, medications, labs, and vital signs reviewed. Dictation completed with the use of [employer] voice recognition software, prone to medical misidentifications and grammatical errors. All errors are unintentional. [...] intact. Mild TTP of cervical spine - flexion/extension/ro tation of the neck appears unaffected. Given recent [...] for 11/20/2024. #Recent fall: Patient seen at [facility] ED 11/02/2024 s/p fall at work. Denied [...] diffuse joint pain and fatigue. Follows with divemaster Dr. Clark out of [place], records requested and not yet available for my review. 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 States this was diagnosed by Dr. Dubon out of [place], [place]. Taking methocarbamol 750 mg 3 times daily and gabapentin 100 mg twice daily with moderate relief of discomfort. Patient awaiting surgical scheduling for correction. 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 States she has felt many health care [...] discussed. Follow-up in , sooner should any questions/concerns arise. Case discussed with collaborating physician Velia Morrison who has reviewed the assessment/plan. Chart, medications, labs, and vital signs reviewed. Dictation completed with the use of [employer] voice recognition software, prone to medical misidentifications and grammatical errors. All errors are unintentional. [...] intact. Mild TTP of cervical spine - flexion/extension/ro tation of the neck appears unaffected. Given recent [...] for 11/20/2024. #Recent fall: Patient seen at [facility] ED 11/02/2024 s/p fall at work. Denied [...] diffuse joint pain and fatigue. Follows with divemaster Dr. Clark out of [place], records requested and not yet available for my review. 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 States this was diagnosed by Dr. Dubon out of [place], [place]. Taking methocarbamol 750 mg 3 times daily and gabapentin 100 mg twice daily with moderate relief of discomfort. Patient awaiting surgical scheduling for correction. 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 States she has felt many health care [...] discussed. Follow-up in , sooner should any questions/concerns arise. Case discussed with collaborating physician Velia Morrison who has reviewed the assessment/plan. Chart, medications, labs, and vital signs reviewed. Dictation completed with the use of [employer] voice recognition software, prone to medical misidentifications and grammatical errors. All errors are unintentional. [...] intact. Mild TTP of cervical spine - flexion/extension/ro tation of the neck appears unaffected. Given recent [...] for 11/20/2024. #Recent fall: Patient seen at [facility] ED 11/02/2024 s/p fall at work. Denied [...] diffuse joint pain and fatigue. Follows with divemaster Dr. Clark out of [place], records requested and not yet available for my review. 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 States this was diagnosed by Dr. Dubon out of [place], [place]. Taking methocarbamol 750 mg 3 times daily and gabapentin 100 mg twice daily with moderate relief of discomfort. Patient awaiting surgical scheduling for correction. 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 States she has felt many health care [...] discussed. Follow-up in , sooner should any questions/concerns arise. Case discussed with collaborating physician Velia Morrison who has reviewed the assessment/plan. Chart, medications, labs, and vital signs reviewed. Dictation completed with the use of [employer] voice recognition software, prone to medical misidentifications and grammatical errors. All errors are unintentional. Although the practitioner does try to identify and correct errors, some may be present. Please do not hesitate to contact the practitioner for clarification. Total time was 60 minutes spent with >50% on coordination of care and patient education. 12/13/2024 Generalized weakness (ICD-10 - R53.1) 01/22/2025 Rheumatoid arthritis involving multiple sites with positive rheumatoid factor (ICD-10 - M05.79) María is a 59-year-old female with history of rheumatoid arthritis, slipped rib syndrome, and Rock's with history of thyroid nodules who presents today for urgent visit for right-sided neck pain since April. Reports associated jaw pain as well as a lump on the right side of her neck. Reports some discomfort when swallowing however able to tolerate all solids and liquids and able to handle secretions. Reports no recent fevers, no recent dental care, or no recent antibiotic use. Reports having CT of her head and neck at some point, reports incidental finding of fluid collection in her neck. On physical exam patient is well-appearing and in no acute distress. No tripoding. Cardiopulmonary exam unremarkable. No visible swelling upon inspection of her neck. Palpation of the right side of her neck and area of anterior chain lymph nodes reveals tenderness as well as area of small swelling that is mobile. Oropharynx is not erythematous and nonedematous, no tonsillar swelling, exudates, erythema, or uvular deviation. Mucous membranes are moist. Based on clinical evaluation and physical exam will order ultrasound of her neck to evaluate for lymphadenopathy or fluid collection. Patient reports recent blood work through [facility] which we will request, otherwise last TSH on 10/28/2024 within normal limits at 0.60. Patient also recently underwent esophagram which demonstrated mild esophageal motility. 1 episode of flash laryngeal penetration occurred. Otherwise normal double contrast esophagogram. For pain control patient at this time taking meloxicam daily. For severe pain will prescribe tramadol 50 mg to be used every 4-6 hours as needed. Discussed proper use of medication and potential side effect profile including but not limited to dizziness, nausea, headache, constipation. Patient will follow-up in office in approximately 2 weeks for follow-up of these concerns. Discussed red flag signs requiring ED evaluation. All patient questions answered at this time. # Rheumatoid arthritis: Rheumatoid factor positive on 10/28/2024 at 152. C-reactive protein 0.58 within normal limits. ESR 4. Negative CAMILO. Continue meloxicam 15 mg tablet daily for pain. Continue follow-up with rheumatology. 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 Dubon out of [place], [place]. Taking methocarbamol 750 mg 3 times daily and gabapentin 100 mg 3 times daily with moderate relief of discomfort. # Anxiety: Stable mood in office. Follows with psychiatric nurse practitioner Cassidy Quiroz as well as therapist. Continue lorazepam 1 mg 1 tablet 3 times daily as needed for anxiety. # Rock's: Reports history of thyroid nodules. Patient not currently on thyroid medications. Last TSH on 10/28/2024 within normal limits at 0.60. Thyroid not enlarged on palpation. All questions have been answered to patient's satisfaction. Patient verbalized understanding of diagnosis and treatments explained. Advised to call sooner prior to next visit it any questions/concerns arise. Case discussed with collaborating physician Lakisha Morrison who reviewed the assessment and plan. Chart, medications, labs, vital signs reviewed. Dictation was accomplished with the use of [employer] voice recognition software, which is prone to medical misidentifications and grammatical errors. This are unintentional and the practitioner does try to identify and correct these, but some could still be present. Please do not hesitate to contact practitioner for clarification. 01/22/2025 Neck pain on right side (ICD-10 - M54.2) María is a 59-year-old female with history of rheumatoid arthritis, slipped rib syndrome, and Rock's with history of thyroid nodules who presents today for urgent visit for right-sided neck pain since April. Reports associated jaw pain as well as a lump on the right side of her neck. Reports some discomfort when swallowing however able to tolerate all solids and liquids and able to handle secretions. Reports no recent fevers, no recent dental care, or no recent antibiotic use. Reports having CT of her head and neck at some point, reports incidental finding of fluid collection in her neck. On physical exam patient is well-appearing and in no acute distress. No tripoding. Cardiopulmonary exam unremarkable. No visible swelling upon inspection of her neck. Palpation of the right side of her neck and area of anterior chain lymph nodes reveals tenderness as well as area of small swelling that is mobile. Oropharynx is not erythematous and nonedematous, no tonsillar swelling, exudates, erythema, or uvular deviation. Mucous membranes are moist. Based on clinical evaluation and physical exam will order ultrasound of her neck to evaluate for lymphadenopathy or fluid collection. Patient reports recent blood work through [facility] which we will request, otherwise last TSH on 10/28/2024 within normal limits at 0.60. Patient also recently underwent esophagram which demonstrated mild esophageal motility. 1 episode of flash laryngeal penetration occurred. Otherwise normal double contrast esophagogram. For pain control patient at this time taking meloxicam daily. For severe pain will prescribe tramadol 50 mg to be used every 4-6 hours as needed. Discussed proper use of medication and potential side effect profile including but not limited to dizziness, nausea, headache, constipation. Patient will follow-up in office in approximately 2 weeks for follow-up of these concerns. Discussed red flag signs requiring ED evaluation. All patient questions answered at this time. # Rheumatoid arthritis: Rheumatoid factor positive on 10/28/2024 at 152. C-reactive protein 0.58 within normal limits. ESR 4. Negative CAMILO. Continue meloxicam 15 mg tablet daily for pain. Continue follow-up with rheumatology. 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 Dubon out of [place], [place]. Taking methocarbamol 750 mg 3 times daily and gabapentin 100 mg 3 times daily with moderate relief of discomfort. # Anxiety: Stable mood in office. Follows with psychiatric nurse practitioner Cassidy Quiroz as well as therapist. Continue lorazepam 1 mg 1 tablet 3 times daily as needed for anxiety. # Rock's: Reports history of thyroid nodules. Patient not currently on thyroid medications. Last TSH on 10/28/2024 within normal limits at 0.60. Thyroid not enlarged on palpation. All questions have been answered to patient's satisfaction. Patient verbalized understanding of diagnosis and treatments explained. Advised to call sooner prior to next visit it any questions/concerns arise. Case discussed with collaborating physician Lakisha Morrison who reviewed the assessment and plan. Chart, medications, labs, vital signs reviewed. Dictation was accomplished with the use of [employer] voice recognition software, which is prone to medical misidentifications and grammatical errors. This are unintentional and the practitioner does try to identify and correct these, but some could still be present. Please do not hesitate to contact practitioner for clarification. 01/27/2025 Breast cancer screening by mammogram (ICD-10 - Z12.31) 02/03/2025 Rheumatoid arthritis involving multiple sites, unspecified whether rheumatoid factor present (ICD-10 - M06.9) María is a 59-year-old female with history of rheumatoid arthritis, slipped rib syndrome, and Rock's thyroiditis who presents today for follow-up of right-sided neck pain as well as new onset pain in her left axilla. Regarding her neck pain reports no worsening of symptoms since her last visit. Patient has been made aware of results of ultrasound of the neck revealing a nonspecific 1.3 cm lymph node without calcifications or suspicious color signal. Will follow-up with repeat ultrasound in 6 months to monitor any progression. Patient reports 1 week of tenderness and enlarged lymph nodes in her left axilla. Reports no skin changes and has been afebrile. Did have COVID a few weeks ago however infection has since resolved. Reports exacerbation of pain with abduction of her right arm. Rates pain 8 out of 10 on scale. Reports no breast changes, due for mammogram on February 05. On physical exam patient is well-appearing and in no acute distress. Vital signs are stable and within normal limits. Cardiopulmonary exam unremarkable. Visualization of the right axilla reveals no erythema, rashes, or lesions. There is tenderness to palpation of the posterior and central lymph nodes as well as mild lymphadenopathy. Exam of the right axilla is unremarkable. Based on clinical presentation and physical exam likely suspect reactive lymphadenopathy. Low suspicion for breast carcinoma given lack of breast changes and overall unremarkable mammograms in the past. Reports history of fibroadenoma on previous mammograms. At this time we will further investigate with soft tissue ultrasound of the left axilla. Will contact patient with results of imaging is made available. Advised patient to return to the office sooner if symptoms worsen or do not improve. Patient understanding. All patient questions answered at this time. # Rheumatoid arthritis: Rheumatoid factor positive on 10/28/2024 at 152. C-reactive protein 0.58 within normal limits. ESR 4. Negative CAMILO. Continue meloxicam 15 mg tablet daily for pain. Continue follow-up with rheumatology. 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 Dubon out of [place], [place]. Taking methocarbamol 750 mg 3 times daily and gabapentin 100 mg 3 times daily with moderate relief of discomfort. # Anxiety: Stable mood in office. Follows with psychiatric nurse practitioner Cassidy Quiroz as well as therapist. Continue lorazepam 1 mg 1 tablet 3 times daily as needed for anxiety. # Rock's: Reports history of thyroid nodules. Patient not currently on thyroid medications. Last TSH on 10/28/2024 within normal limits at 0.60. Thyroid not enlarged on palpation. # Calcific tendinitis: Patient follows with orthopedics for newly found calcifications in her right shoulder. Does not believe that this diagnosis is going to current symptoms. Advised to continue to follow-up with specialist. All questions have been answered to patient's satisfaction. Patient verbalized understanding of diagnosis and treatments explained. Advised to call sooner prior to next visit it any questions/concerns arise. Case discussed with collaborating physician Lakisha Morrison who reviewed the assessment and plan. Chart, medications, labs, vital signs reviewed. Dictation was accomplished with the use of [employer] voice recognition software, which is prone to medical misidentifications and grammatical errors. This are unintentional and the practitioner does try to identify and correct these, but some could still be present. Please do not hesitate to contact practitioner for clarification. 02/03/2025 Lymphadenopathy, axillary (ICD-10 - R59.0) María is a 59-year-old female with history of rheumatoid arthritis, slipped rib syndrome, and Rock's thyroiditis who presents today for follow-up of right-sided neck pain as well as new onset pain in her left axilla. Regarding her neck pain reports no worsening of symptoms since her last visit. Patient has been made aware of results of ultrasound of the neck revealing a nonspecific 1.3 cm lymph node without calcifications or suspicious color signal. Will follow-up with repeat ultrasound in 6 months to monitor any progression. Patient reports 1 week of tenderness and enlarged lymph nodes in her left axilla. Reports no skin changes and has been afebrile. Did have COVID a few weeks ago however infection has since resolved. Reports exacerbation of pain with abduction of her right arm. Rates pain 8 out of 10 on scale. Reports no breast changes, due for mammogram on February 05. On physical exam patient is well-appearing and in no acute distress. Vital signs are stable and within normal limits. Cardiopulmonary exam unremarkable. Visualization of the right axilla reveals no erythema, rashes, or lesions. There is tenderness to palpation of the posterior and central lymph nodes as well as mild lymphadenopathy. Exam of the right axilla is unremarkable. Based on clinical presentation and physical exam likely suspect reactive lymphadenopathy. Low suspicion for breast carcinoma given lack of breast changes and overall unremarkable mammograms in the past. Reports history of fibroadenoma on previous mammograms. At this time we will further investigate with soft tissue ultrasound of the left axilla. Will contact patient with results of imaging is made available. Advised patient to return to the office sooner if symptoms worsen or do not improve. Patient understanding. All patient questions answered at this time. # Rheumatoid arthritis: Rheumatoid factor positive on 10/28/2024 at 152. C-reactive protein 0.58 within normal limits. ESR 4. Negative CAMILO. Continue meloxicam 15 mg tablet daily for pain. Continue follow-up with rheumatology. 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 Dubon out of [place], [place]. Taking methocarbamol 750 mg 3 times daily and gabapentin 100 mg 3 times daily with moderate relief of discomfort. # Anxiety: Stable mood in office. Follows with psychiatric nurse practitioner Cassidy Quiroz as well as therapist. Continue lorazepam 1 mg 1 tablet 3 times daily as needed for anxiety. # Rock's: Reports history of thyroid nodules. Patient not currently on thyroid medications. Last TSH on 10/28/2024 within normal limits at 0.60. Thyroid not enlarged on palpation. # Calcific tendinitis: Patient follows with orthopedics for newly found calcifications in her right shoulder. Does not believe that this diagnosis is going to current symptoms. Advised to continue to follow-up with specialist. All questions have been answered to patient's satisfaction. Patient verbalized understanding of diagnosis and treatments explained. Advised to call sooner prior to next visit it any questions/concerns arise. Case discussed with collaborating physician Lakisha Morrison who reviewed the assessment and plan. Chart, medications, labs, vital signs reviewed. Dictation was accomplished with the use of [employer] voice recognition software, which is prone to medical misidentifications and grammatical errors. This are unintentional and the practitioner does try to identify and correct these, but some could still be present. Please do not hesitate to contact practitioner for clarification. 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 Regarding her neck pain reports no worsening of symptoms since her last visit. Patient has been made aware of results of ultrasound of the neck revealing a nonspecific 1.3 cm lymph node without calcifications or suspicious color signal. Will follow-up with repeat ultrasound in 6 months to monitor any progression. Patient reports 1 week of tenderness and enlarged lymph nodes in her left axilla. Reports no skin changes and has been afebrile. Did have COVID a few weeks ago however infection has since resolved. Reports exacerbation of pain with abduction of her right arm. Rates pain 8 out of 10 on scale. Reports no breast changes, due for mammogram on February 05. On physical exam patient is well-appearing and in no acute distress. Vital signs are stable and within normal limits. Cardiopulmonary exam unremarkable. Visualization of the right axilla reveals no erythema, rashes, or lesions. There is tenderness to palpation of the posterior and central lymph nodes as well as mild lymphadenopathy. Exam of the right axilla is unremarkable. Based on clinical presentation and physical exam likely suspect reactive lymphadenopathy. Low suspicion for breast carcinoma given lack of breast changes and overall unremarkable mammograms in the past. Reports history of fibroadenoma on previous mammograms. At this time we will further investigate with soft tissue ultrasound of the left axilla. Will contact patient with results of imaging is made available. Advised patient to return to the office sooner if symptoms worsen or do not improve. Patient understanding. All patient questions answered at this time. # Rheumatoid arthritis: Rheumatoid factor positive on 10/28/2024 at 152. C-reactive protein 0.58 within normal limits. ESR 4. Negative CAMILO. Continue meloxicam 15 mg tablet daily for pain. Continue follow-up with rheumatology. 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 Dubon out of [place], [place]. Taking methocarbamol 750 mg 3 times daily and gabapentin 100 mg 3 times daily with moderate relief of discomfort. # Anxiety: Stable mood in office. Follows with psychiatric nurse practitioner Cassidy Quiroz as well as therapist. Continue lorazepam 1 mg 1 tablet 3 times daily as needed for anxiety. # Rock's: Reports history of thyroid nodules. Patient not currently on thyroid medications. Last TSH on 10/28/2024 within normal limits at 0.60. Thyroid not enlarged on palpation. # Calcific tendinitis: Patient follows with orthopedics for newly found calcifications in her right shoulder. Does not believe that this diagnosis is going to current symptoms. Advised to continue to follow-up with specialist. All questions have been answered to patient's satisfaction. Patient verbalized understanding of diagnosis and treatments explained. Advised to call sooner prior to next visit it any questions/concerns arise. Case discussed with collaborating physician Lakisha Morrison who reviewed the assessment and plan. Chart, medications, labs, vital signs reviewed. Dictation was accomplished with the use of [employer] voice recognition software, which is prone to medical misidentifications and grammatical errors. This are unintentional and the practitioner does try to identify and correct these, but some could still be present. Please do not hesitate to contact practitioner for clarification. 01/22/2025 Slipped rib syndrome (ICD-10 - M94.0) María is a 59-year-old female with history of rheumatoid arthritis, slipped rib syndrome, and Rock's with history of thyroid nodules who presents today for urgent visit for right-sided neck pain since April. Reports associated jaw pain as well as a lump on the right side of her neck. Reports some discomfort when swallowing however able to tolerate all solids and liquids and able to handle secretions. Reports no recent fevers, no recent dental care, or no recent antibiotic use. Reports having CT of her head and neck at some point, reports incidental finding of fluid collection in her neck. On physical exam patient is well-appearing and in no acute distress. No tripoding. Cardiopulmonary exam unremarkable. No visible swelling upon inspection of her neck. Palpation of the right side of her neck and area of anterior chain lymph nodes reveals tenderness as well as area of small swelling that is mobile. Oropharynx is not erythematous and nonedematous, no tonsillar swelling, exudates, erythema, or uvular deviation. Mucous membranes are moist. Based on clinical evaluation and physical exam will order ultrasound of her neck to evaluate for lymphadenopathy or fluid collection. Patient reports recent blood work through [facility] which we will request, otherwise last TSH on 10/28/2024 within normal limits at 0.60. Patient also recently underwent esophagram which demonstrated mild esophageal motility. 1 episode of flash laryngeal penetration occurred. Otherwise normal double contrast esophagogram. For pain control patient at this time taking meloxicam daily. For severe pain will prescribe tramadol 50 mg to be used every 4-6 hours as needed. Discussed proper use of medication and potential side effect profile including but not limited to dizziness, nausea, headache, constipation. Patient will follow-up in office in approximately 2 weeks for follow-up of these concerns. Discussed red flag signs requiring ED evaluation. All patient questions answered at this time. # Rheumatoid arthritis: Rheumatoid factor positive on 10/28/2024 at 152. C-reactive protein 0.58 within normal limits. ESR 4. Negative CAMILO. Continue meloxicam 15 mg tablet daily for pain. Continue follow-up with rheumatology. 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 Dubon out of [place], [place]. Taking methocarbamol 750 mg 3 times daily and gabapentin 100 mg 3 times daily with moderate relief of discomfort. # Anxiety: Stable mood in office. Follows with psychiatric nurse practitioner Cassidy Quiroz as well as therapist. Continue lorazepam 1 mg 1 tablet 3 times daily as needed for anxiety. # Rock's: Reports history of thyroid nodules. Patient not currently on thyroid medications. Last TSH on 10/28/2024 within normal limits at 0.60. Thyroid not enlarged on palpation. All questions have been answered to patient's satisfaction. Patient verbalized understanding of diagnosis and treatments explained. Advised to call sooner prior to next visit it any questions/concerns arise. Case discussed with collaborating physician Lakisha Morrison who reviewed the assessment and plan. Chart, medications, labs, vital signs reviewed. Dictation was accomplished with the use of [employer] voice recognition software, which is prone to medical misidentifications and grammatical errors. This are unintentional and the practitioner does try to identify and correct these, but some could still be present. Please do not hesitate to contact practitioner for clarification. 12/13/2024 Paresthesias (ICD-10 - R20.2) 12/04/2024 Cervical [...] intact. Mild TTP of cervical spine - flexion/extension/ro tation of the neck appears unaffected. Given recent [...] for 11/20/2024. #Recent fall: Patient seen at [facility] ED 11/02/2024 s/p fall at work. Denied [...] diffuse joint pain and fatigue. Follows with divemaster Dr. Clark out of [place], records requested and not yet available for my review. 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 States this was diagnosed by Dr. Dubon out of [place], [place]. Taking methocarbamol 750 mg 3 times daily and gabapentin 100 mg twice daily with moderate relief of discomfort. Patient awaiting surgical scheduling for correction. 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 States she has felt many health care [...] discussed. Follow-up in , sooner should any questions/concerns arise. Case discussed with collaborating physician Velia Morrison who has reviewed the assessment/plan. Chart, medications, labs, and vital signs reviewed. Dictation completed with the use of [employer] voice recognition software, prone to medical misidentifications and grammatical errors. All errors are unintentional. [...] intact. Mild TTP of cervical spine - flexion/extension/ro tation of the neck appears unaffected. Given recent [...] for 11/20/2024. #Recent fall: Patient seen at [facility] ED 11/02/2024 s/p fall at work. Denied [...] diffuse joint pain and fatigue. Follows with divemaster Dr. Clark out of [place], records requested and not yet available for my review. 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 States this was diagnosed by Dr. Dubon out of [place], [place]. Taking methocarbamol 750 mg 3 times daily and gabapentin 100 mg twice daily with moderate relief of discomfort. Patient awaiting surgical scheduling for correction. 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 States she has felt many health care [...] discussed. Follow-up in , sooner should any questions/concerns arise. Case discussed with collaborating physician Velia Morrison who has reviewed the assessment/plan. Chart, medications, labs, and vital signs reviewed. Dictation completed with the use of [employer] voice recognition software, prone to medical misidentifications and grammatical errors. All errors are unintentional. Although the practitioner does try to identify and correct errors, some may be present. Please do not hesitate to contact the practitioner for clarification. Total time was 60 minutes spent with >50% on coordination of care and patient education. 10/28/2024 Slipped rib syndrome (ICD-10 - M94.0) Maraí is a 59-year-old female with a [...] Patient reports history of RA. Follows with divemaster Dr. Clark out of [place]. Has been treated previously with Humira, Enbrel, [...] to the cartilage which creates discomfort with inhalation/exhalatio n. States this was diagnosed by Dr. Dubon out of [place], [place]. Taking methocarbamol 750 mg 3 times daily and gabapentin 100 mg 3 times daily with moderate relief of discomfort. Patient awaiting surgical scheduling for correction. 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 States she has felt many health care [...] 2 to 4 weeks, sooner should any questions/concerns arise. Case discussed with collaborating physician Velia Morrison who has reviewed the assessment/plan. Chart, medications, labs, and vital signs reviewed. Dictation completed with the use of [employer] voice recognition software, prone to medical misidentifications and grammatical errors. All errors are unintentional. [...] a PMH of RA, slipped rib syndrome, Orck's that presents today for follow-up visit #Labs: [...] intact. Mild TTP of cervical spine - flexion/extension/ro tation of the neck appears unaffected. Given recent [...] for 11/20/2024. #Recent fall: Patient seen at [facility] ED 11/02/2024 s/p fall at work. Denied [...] diffuse joint pain and fatigue. Follows with divemaster Dr. Clark out of [place], records requested and not yet available for my review. 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 States this was diagnosed by Dr. Dubon out of [place], [place]. Taking methocarbamol 750 mg 3 times daily and gabapentin 100 mg twice daily with moderate relief of discomfort. Patient awaiting surgical scheduling for correction. 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 States she has felt many health care [...] discussed. Follow-up in , sooner should any questions/concerns arise. Case discussed with collaborating physician Velia Morrison who has reviewed the assessment/plan. Chart, medications, labs, and vital signs reviewed. Dictation completed with the use of [employer] voice recognition software, prone to medical misidentifications and grammatical errors. All errors are unintentional. [...] intact. Mild TTP of cervical spine - flexion/extension/ro tation of the neck appears unaffected. Given recent [...] for 11/20/2024. #Recent fall: Patient seen at [facility] ED 11/02/2024 s/p fall at work. Denied [...] diffuse joint pain and fatigue. Follows with divemaster Dr. Clark out of [place], records requested and not yet available for my review. 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 States this was diagnosed by Dr. Dubon out of [place], [place]. Taking methocarbamol 750 mg 3 times daily and gabapentin 100 mg twice daily with moderate relief of discomfort. Patient awaiting surgical scheduling for correction. 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 States she has felt many health care [...] discussed. Follow-up in , sooner should any questions/concerns arise. Case discussed with collaborating physician Velia Morrison who has reviewed the assessment/plan. Chart, medications, labs, and vital signs reviewed. Dictation completed with the use of [employer] voice recognition software, prone to medical misidentifications and grammatical errors. All errors are unintentional. [...] Patient reports history of RA. Follows with divemaster Dr. Clark out of [place]. Has been treated previously with Humira, Enbrel, [...] to the cartilage which creates discomfort with inhalation/exhalatio n. States this was diagnosed by Dr. Dubon out of [place], [place]. Taking methocarbamol 750 mg 3 times daily and gabapentin 100 mg 3 times daily with moderate relief of discomfort. Patient awaiting surgical scheduling for correction. 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 States she has felt many health care [...] 2 to 4 weeks, sooner should any questions/concerns arise. Case discussed with collaborating physician Velia Morrison who has reviewed the assessment/plan. Chart, medications, labs, and vital signs reviewed. Dictation completed with the use of [employer] voice recognition software, prone to medical misidentifications and grammatical errors. All errors are unintentional. Although the practitioner does try to identify and correct errors, some may be present. Please do not hesitate to contact the practitioner for clarification. Total time was 60 minutes spent with >50% on coordination of care and patient education. 02/03/2025 Slipped rib syndrome (ICD-10 - M94.0) María is a 59-year-old female with history of rheumatoid arthritis, slipped rib syndrome, and Rock's thyroiditis who presents today for follow-up of right-sided neck pain as well as new onset pain in her left axilla. Regarding her neck pain reports no worsening of symptoms since her last visit. Patient has been made aware of results of ultrasound of the neck revealing a nonspecific 1.3 cm lymph node without calcifications or suspicious color signal. Will follow-up with repeat ultrasound in 6 months to monitor any progression. Patient reports 1 week of tenderness and enlarged lymph nodes in her left axilla. Reports no skin changes and has been afebrile. Did have COVID a few weeks ago however infection has since resolved. Reports exacerbation of pain with abduction of her right arm. Rates pain 8 out of 10 on scale. Reports no breast changes, due for mammogram on February 05. On physical exam patient is well-appearing and in no acute distress. Vital signs are stable and within normal limits. Cardiopulmonary exam unremarkable. Visualization of the right axilla reveals no erythema, rashes, or lesions. There is tenderness to palpation of the posterior and central lymph nodes as well as mild lymphadenopathy. Exam of the right axilla is unremarkable. Based on clinical presentation and physical exam likely suspect reactive lymphadenopathy. Low suspicion for breast carcinoma given lack of breast changes and overall unremarkable mammograms in the past. Reports history of fibroadenoma on previous mammograms. At this time we will further investigate with soft tissue ultrasound of the left axilla. Will contact patient with results of imaging is made available. Advised patient to return to the office sooner if symptoms worsen or do not improve. Patient understanding. All patient questions answered at this time. # Rheumatoid arthritis: Rheumatoid factor positive on 10/28/2024 at 152. C-reactive protein 0.58 within normal limits. ESR 4. Negative CAMILO. Continue meloxicam 15 mg tablet daily for pain. Continue follow-up with rheumatology. 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 Dubon out of [place], [place]. Taking methocarbamol 750 mg 3 times daily and gabapentin 100 mg 3 times daily with moderate relief of discomfort. # Anxiety: Stable mood in office. Follows with psychiatric nurse practitioner Cassidy Quiroz as well as therapist. Continue lorazepam 1 mg 1 tablet 3 times daily as needed for anxiety. # Rock's: Reports history of thyroid nodules. Patient not currently on thyroid medications. Last TSH on 10/28/2024 within normal limits at 0.60. Thyroid not enlarged on palpation. # Calcific tendinitis: Patient follows with orthopedics for newly found calcifications in her right shoulder. Does not believe that this diagnosis is going to current symptoms. Advised to continue to follow-up with specialist. All questions have been answered to patient's satisfaction. Patient verbalized understanding of diagnosis and treatments explained. Advised to call sooner prior to next visit it any questions/concerns arise. Case discussed with collaborating physician Lakisha Morrison who reviewed the assessment and plan. Chart, medications, labs, vital signs reviewed. Dictation was accomplished with the use of [employer] voice recognition software, which is prone to medical misidentifications and grammatical errors. This are unintentional and the practitioner does try to identify and correct these, but some could still be present. Please do not hesitate to contact practitioner for clarification. 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 Reports associated jaw pain as well as a lump on the right side of her neck. Reports some discomfort when swallowing however able to tolerate all solids and liquids and able to handle secretions. Reports no recent fevers, no recent dental care, or no recent antibiotic use. Reports having CT of her head and neck at some point, reports incidental finding of fluid collection in her neck. On physical exam patient is well-appearing and in no acute distress. No tripoding. Cardiopulmonary exam unremarkable. No visible swelling upon inspection of her neck. Palpation of the right side of her neck and area of anterior chain lymph nodes reveals tenderness as well as area of small swelling that is mobile. Oropharynx is not erythematous and nonedematous, no tonsillar swelling, exudates, erythema, or uvular deviation. Mucous membranes are moist. Based on clinical evaluation and physical exam will order ultrasound of her neck to evaluate for lymphadenopathy or fluid collection. Patient reports recent blood work through [facility] which we will request, otherwise last TSH on 10/28/2024 within normal limits at 0.60. Patient also recently underwent esophagram which demonstrated mild esophageal motility. 1 episode of flash laryngeal penetration occurred. Otherwise normal double contrast esophagogram. For pain control patient at this time taking meloxicam daily. For severe pain will prescribe tramadol 50 mg to be used every 4-6 hours as needed. Discussed proper use of medication and potential side effect profile including but not limited to dizziness, nausea, headache, constipation. Patient will follow-up in office in approximately 2 weeks for follow-up of these concerns. Discussed red flag signs requiring ED evaluation. All patient questions answered at this time. # Rheumatoid arthritis: Rheumatoid factor positive on 10/28/2024 at 152. C-reactive protein 0.58 within normal limits. ESR 4. Negative CAMILO. Continue meloxicam 15 mg tablet daily for pain. Continue follow-up with rheumatology. 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 Dubon out of [place], [place]. Taking methocarbamol 750 mg 3 times daily and gabapentin 100 mg 3 times daily with moderate relief of discomfort. # Anxiety: Stable mood in office. Follows with psychiatric nurse practitioner Cassidy Quiroz as well as therapist. Continue lorazepam 1 mg 1 tablet 3 times daily as needed for anxiety. # Rock's: Reports history of thyroid nodules. Patient not currently on thyroid medications. Last TSH on 10/28/2024 within normal limits at 0.60. Thyroid not enlarged on palpation. All questions have been answered to patient's satisfaction. Patient verbalized understanding of diagnosis and treatments explained. Advised to call sooner prior to next visit it any questions/concerns arise. Case discussed with collaborating physician Lakisha Morrison who reviewed the assessment and plan. Chart, medications, labs, vital signs reviewed. Dictation was accomplished with the use of [employer] voice recognition software, which is prone to medical misidentifications and grammatical errors. This are unintentional and the practitioner does try to identify and correct these, but some could still be present. Please do not hesitate to contact practitioner for clarification. 02/03/2025 Anxiety, generalized (ICD-10 - F41.1) María is a 59-year-old female with history of rheumatoid arthritis, slipped rib syndrome, and Rock's thyroiditis who presents today for follow-up of right-sided neck pain as well as new onset pain in her left axilla. Regarding her neck pain reports no worsening of symptoms since her last visit. Patient has been made aware of results of ultrasound of the neck revealing a nonspecific 1.3 cm lymph node without calcifications or suspicious color signal. Will follow-up with repeat ultrasound in 6 months to monitor any progression. Patient reports 1 week of tenderness and enlarged lymph nodes in her left axilla. Reports no skin changes and has been afebrile. Did have COVID a few weeks ago however infection has since resolved. Reports exacerbation of pain with abduction of her right arm. Rates pain 8 out of 10 on scale. Reports no breast changes, due for mammogram on February 05. On physical exam patient is well-appearing and in no acute distress. Vital signs are stable and within normal limits. Cardiopulmonary exam unremarkable. Visualization of the right axilla reveals no erythema, rashes, or lesions. There is tenderness to palpation of the posterior and central lymph nodes as well as mild lymphadenopathy. Exam of the right axilla is unremarkable. Based on clinical presentation and physical exam likely suspect reactive lymphadenopathy. Low suspicion for breast carcinoma given lack of breast changes and overall unremarkable mammograms in the past. Reports history of fibroadenoma on previous mammograms. At this time we will further investigate with soft tissue ultrasound of the left axilla. Will contact patient with results of imaging is made available. Advised patient to return to the office sooner if symptoms worsen or do not improve. Patient understanding. All patient questions answered at this time. # Rheumatoid arthritis: Rheumatoid factor positive on 10/28/2024 at 152. C-reactive protein 0.58 within normal limits. ESR 4. Negative CAMILO. Continue meloxicam 15 mg tablet daily for pain. Continue follow-up with rheumatology. 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 Dubon out of [place], [place]. Taking methocarbamol 750 mg 3 times daily and gabapentin 100 mg 3 times daily with moderate relief of discomfort. # Anxiety: Stable mood in office. Follows with psychiatric nurse practitioner Cassidy Quiroz as well as therapist. Continue lorazepam 1 mg 1 tablet 3 times daily as needed for anxiety. # Rock's: Reports history of thyroid nodules. Patient not currently on thyroid medications. Last TSH on 10/28/2024 within normal limits at 0.60. Thyroid not enlarged on palpation. # Calcific tendinitis: Patient follows with orthopedics for newly found calcifications in her right shoulder. Does not believe that this diagnosis is going to current symptoms. Advised to continue to follow-up with specialist. All questions have been answered to patient's satisfaction. Patient verbalized understanding of diagnosis and treatments explained. Advised to call sooner prior to next visit it any questions/concerns arise. Case discussed with collaborating physician Lakisha Morrison who reviewed the assessment and plan. Chart, medications, labs, vital signs reviewed. Dictation was accomplished with the use of [employer] voice recognition software, which is prone to medical misidentifications and grammatical errors. This are unintentional and the practitioner does try to identify and correct these, but some could still be present. Please do not hesitate to contact practitioner for clarification. 01/22/2025 Depression with anxiety (ICD-10 - F41.8) María is a 59-year-old female with history of rheumatoid arthritis, slipped rib syndrome, and Rock's with history of thyroid nodules who presents today for urgent visit for right-sided neck pain since April. Reports associated jaw pain as well as a lump on the right side of her neck. Reports some discomfort when swallowing however able to tolerate all solids and liquids and able to handle secretions. Reports no recent fevers, no recent dental care, or no recent antibiotic use. Reports having CT of her head and neck at some point, reports incidental finding of fluid collection in her neck. On physical exam patient is well-appearing and in no acute distress. No tripoding. Cardiopulmonary exam unremarkable. No visible swelling upon inspection of her neck. Palpation of the right side of her neck and area of anterior chain lymph nodes reveals tenderness as well as area of small swelling that is mobile. Oropharynx is not erythematous and nonedematous, no tonsillar swelling, exudates, erythema, or uvular deviation. Mucous membranes are moist. Based on clinical evaluation and physical exam will order ultrasound of her neck to evaluate for lymphadenopathy or fluid collection. Patient reports recent blood work through [facility] which we will request, otherwise last TSH on 10/28/2024 within normal limits at 0.60. Patient also recently underwent esophagram which demonstrated mild esophageal motility. 1 episode of flash laryngeal penetration occurred. Otherwise normal double contrast esophagogram. For pain control patient at this time taking meloxicam daily. For severe pain will prescribe tramadol 50 mg to be used every 4-6 hours as needed. Discussed proper use of medication and potential side effect profile including but not limited to dizziness, nausea, headache, constipation. Patient will follow-up in office in approximately 2 weeks for follow-up of these concerns. Discussed red flag signs requiring ED evaluation. All patient questions answered at this time. # Rheumatoid arthritis: Rheumatoid factor positive on 10/28/2024 at 152. C-reactive protein 0.58 within normal limits. ESR 4. Negative CAMILO. Continue meloxicam 15 mg tablet daily for pain. Continue follow-up with rheumatology. 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 Dubon out of [place], [place]. Taking methocarbamol 750 mg 3 times daily and gabapentin 100 mg 3 times daily with moderate relief of discomfort. # Anxiety: Stable mood in office. Follows with psychiatric nurse practitioner Cassiyd Quiroz as well as therapist. Continue lorazepam 1 mg 1 tablet 3 times daily as needed for anxiety. # Rock's: Reports history of thyroid nodules. Patient not currently on thyroid medications. Last TSH on 10/28/2024 within normal limits at 0.60. Thyroid not enlarged on palpation. All questions have been answered to patient's satisfaction. Patient verbalized understanding of diagnosis and treatments explained. Advised to call sooner prior to next visit it any questions/concerns arise. Case discussed with collaborating physician Lakisha Morrison who reviewed the assessment and plan. Chart, medications, labs, vital signs reviewed. Dictation was accomplished with the use of [employer] voice recognition software, which is prone to medical misidentifications and grammatical errors. This are unintentional and the practitioner does try to identify and correct these, but some could still be present. Please do not hesitate to contact practitioner for clarification. 12/04/2024 Pain in right arm (ICD-10 - [...] intact. Mild TTP of cervical spine - flexion/extension/ro tation of the neck appears unaffected. Given recent [...] for 11/20/2024. #Recent fall: Patient seen at [facility] ED 11/02/2024 s/p fall at work. Denied [...] diffuse joint pain and fatigue. Follows with divemaster Dr. Clark out of [place], records requested and not yet available for my review. 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 States this was diagnosed by Dr. Dubon out of [place], [place]. Taking methocarbamol 750 mg 3 times daily and gabapentin 100 mg twice daily with moderate relief of discomfort. Patient awaiting surgical scheduling for correction. 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 States she has felt many health care [...] discussed. Follow-up in , sooner should any questions/concerns arise. Case discussed with collaborating physician Velia Morrison who has reviewed the assessment/plan. Chart, medications, labs, and vital signs reviewed. Dictation completed with the use of [employer] voice recognition software, prone to medical misidentifications and grammatical errors. All errors are unintentional. [...] intact. Mild TTP of cervical spine - flexion/extension/ro tation of the neck appears unaffected. Given recent [...] for 11/20/2024. #Recent fall: Patient seen at [facility] ED 11/02/2024 s/p fall at work. Denied [...] diffuse joint pain and fatigue. Follows with divemaster Dr. Clark out of [place], records requested and not yet available for my review. 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 States this was diagnosed by Dr. Dubon out of [place], [place]. Taking methocarbamol 750 mg 3 times daily and gabapentin 100 mg twice daily with moderate relief of discomfort. Patient awaiting surgical scheduling for correction. 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 States she has felt many health care [...] discussed. Follow-up in , sooner should any questions/concerns arise. Case discussed with collaborating physician Velia Morrison who has reviewed the assessment/plan. Chart, medications, labs, and vital signs reviewed. Dictation completed with the use of [employer] voice recognition software, prone to medical misidentifications and grammatical errors. All errors are unintentional. [...] Patient reports history of RA. Follows with divemaster Dr. Clark out of [place]. Has been treated previously with Humira, Enbrel, [...] to the cartilage which creates discomfort with inhalation/exhalatio n. States this was diagnosed by Dr. Dubon out of [place], [place]. Taking methocarbamol 750 mg 3 times daily and gabapentin 100 mg 3 times daily with moderate relief of discomfort. Patient awaiting surgical scheduling for correction. 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 States she has felt many health care [...] 2 to 4 weeks, sooner should any questions/concerns arise. Case discussed with collaborating physician Velia Morrison who has reviewed the assessment/plan. Chart, medications, labs, and vital signs reviewed. Dictation completed with the use of [employer] voice recognition software, prone to medical misidentifications and grammatical errors. All errors are unintentional. [...] intact. Mild TTP of cervical spine - flexion/extension/ro tation of the neck appears unaffected. Given recent [...] for 11/20/2024. #Recent fall: Patient seen at [facility] ED 11/02/2024 s/p fall at work. Denied [...] diffuse joint pain and fatigue. Follows with divemaster Dr. Clark out of [place], records requested and not yet available for my review. 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 States this was diagnosed by Dr. Dubon out of [place], [place]. Taking methocarbamol 750 mg 3 times daily and gabapentin 100 mg twice daily with moderate relief of discomfort. Patient awaiting surgical scheduling for correction. 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 States she has felt many health care [...] discussed. Follow-up in , sooner should any questions/concerns arise. Case discussed with collaborating physician Velia Morrison who has reviewed the assessment/plan. Chart, medications, labs, and vital signs reviewed. Dictation completed with the use of [employer] voice recognition software, prone to medical misidentifications and grammatical errors. All errors are unintentional. [...] Patient reports history of RA. Follows with divemaster Dr. Clark out of [place]. Has been treated previously with Humira, Enbrel, [...] to the cartilage which creates discomfort with inhalation/exhalatio n. States this was diagnosed by Dr. Dubon out of [place], [place]. Taking methocarbamol 750 mg 3 times daily and gabapentin 100 mg 3 times daily with moderate relief of discomfort. Patient awaiting surgical scheduling for correction. 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 States she has felt many health care [...] 2 to 4 weeks, sooner should any questions/concerns arise. Case discussed with collaborating physician Velia Morrison who has reviewed the assessment/plan. Chart, medications, labs, and vital signs reviewed. Dictation completed with the use of [employer] voice recognition software, prone to medical misidentifications and grammatical errors. All errors are unintentional. [...] intact. Mild TTP of cervical spine - flexion/extension/ro tation of the neck appears unaffected. Given recent [...] for 11/20/2024. #Recent fall: Patient seen at [facility] ED 11/02/2024 s/p fall at work. Denied [...] diffuse joint pain and fatigue. Follows with divemaster Dr. Clark out of [place], records requested and not yet available for my review. 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 States this was diagnosed by Dr. Dubon out of [place], [place]. Taking methocarbamol 750 mg 3 times daily and gabapentin 100 mg twice daily with moderate relief of discomfort. Patient awaiting surgical scheduling for correction. 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 States she has felt many health care [...] discussed. Follow-up in , sooner should any questions/concerns arise. Case discussed with collaborating physician Velia Morrison who has reviewed the assessment/plan. Chart, medications, labs, and vital signs reviewed. Dictation completed with the use of [employer] voice recognition software, prone to medical misidentifications and grammatical errors. All errors are unintentional. Although the practitioner does try to identify and correct errors, some may be present. Please do not hesitate to contact the practitioner for clarification. Total time was 60 minutes spent with >50% on coordination of care and patient education. 02/03/2025 Tendon calcification (ICD-10 - M65.80) María is a 59-year-old female with history of rheumatoid arthritis, slipped rib syndrome, and Rock's thyroiditis who presents today for follow-up of right-sided neck pain as well as new onset pain in her left axilla. Regarding her neck pain reports no worsening of symptoms since her last visit. Patient has been made aware of results of ultrasound of the neck revealing a nonspecific 1.3 cm lymph node without calcifications or suspicious color signal. Will follow-up with repeat ultrasound in 6 months to monitor any progression. Patient reports 1 week of tenderness and enlarged lymph nodes in her left axilla. Reports no skin changes and has been afebrile. Did have COVID a few weeks ago however infection has since resolved. Reports exacerbation of pain with abduction of her right arm. Rates pain 8 out of 10 on scale. Reports no breast changes, due for mammogram on February 05. On physical exam patient is well-appearing and in no acute distress. Vital signs are stable and within normal limits. Cardiopulmonary exam unremarkable. Visualization of the right axilla reveals no erythema, rashes, or lesions. There is tenderness to palpation of the posterior and central lymph nodes as well as mild lymphadenopathy. Exam of the right axilla is unremarkable. Based on clinical presentation and physical exam likely suspect reactive lymphadenopathy. Low suspicion for breast carcinoma given lack of breast changes and overall unremarkable mammograms in the past. Reports history of fibroadenoma on previous mammograms. At this time we will further investigate with soft tissue ultrasound of the left axilla. Will contact patient with results of imaging is made available. Advised patient to return to the office sooner if symptoms worsen or do not improve. Patient understanding. All patient questions answered at this time. # Rheumatoid arthritis: Rheumatoid factor positive on 10/28/2024 at 152. C-reactive protein 0.58 within normal limits. ESR 4. Negative CAMILO. Continue meloxicam 15 mg tablet daily for pain. Continue follow-up with rheumatology. 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 Dubon out of [place], [place]. Taking methocarbamol 750 mg 3 times daily and gabapentin 100 mg 3 times daily with moderate relief of discomfort. # Anxiety: Stable mood in office. Follows with psychiatric nurse practitioner Cassidy Quiroz as well as therapist. Continue lorazepam 1 mg 1 tablet 3 times daily as needed for anxiety. # Rock's: Reports history of thyroid nodules. Patient not currently on thyroid medications. Last TSH on 10/28/2024 within normal limits at 0.60. Thyroid not enlarged on palpation. # Calcific tendinitis: Patient follows with orthopedics for newly found calcifications in her right shoulder. Does not believe that this diagnosis is going to current symptoms. Advised to continue to follow-up with specialist. All questions have been answered to patient's satisfaction. Patient verbalized understanding of diagnosis and treatments explained. Advised to call sooner prior to next visit it any questions/concerns arise. Case discussed with collaborating physician Lakisha Morrison who reviewed the assessment and plan. Chart, medications, labs, vital signs reviewed. Dictation was accomplished with the use of [employer] voice recognition software, which is prone to medical misidentifications and grammatical errors. This are unintentional and the practitioner does try to identify and correct these, but some could still be present. Please do not hesitate to contact practitioner for clarification. 12/02/2024 History of recent fall (ICD-10 - [...] intact. Mild TTP of cervical spine - flexion/extension/ro tation of the neck appears unaffected. Given recent [...] for 11/20/2024. #Recent fall: Patient seen at [facility] ED 11/02/2024 s/p fall at work. Denied [...] diffuse joint pain and fatigue. Follows with divemaster Dr. Clark out of [place], records requested and not yet available for my review. 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 States this was diagnosed by Dr. Dubon out of [place], [place]. Taking methocarbamol 750 mg 3 times daily and gabapentin 100 mg twice daily with moderate relief of discomfort. Patient awaiting surgical scheduling for correction. 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 States she has felt many health care [...] discussed. Follow-up in , sooner should any questions/concerns arise. Case discussed with collaborating physician Velia Morrison who has reviewed the assessment/plan. Chart, medications, labs, and vital signs reviewed. Dictation completed with the use of [employer] voice recognition software, prone to medical misidentifications and grammatical errors. All errors are unintentional. [...] intact. Mild TTP of cervical spine - flexion/extension/ro tation of the neck appears unaffected. Given recent [...] for 11/20/2024. #Recent fall: Patient seen at [facility] ED 11/02/2024 s/p fall at work. Denied [...] diffuse joint pain and fatigue. Follows with divemaster Dr. Clark out of [place], records requested and not yet available for my review. 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 States this was diagnosed by Dr. Dubon out of [place], [place]. Taking methocarbamol 750 mg 3 times daily and gabapentin 100 mg twice daily with moderate relief of discomfort. Patient awaiting surgical scheduling for correction. 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 States she has felt many health care [...] discussed. Follow-up in , sooner should any questions/concerns arise. Case discussed with collaborating physician Velia Morrison who has reviewed the assessment/plan. Chart, medications, labs, and vital signs reviewed. Dictation completed with the use of [employer] voice recognition software, prone to medical misidentifications and grammatical errors. All errors are unintentional. [...] intact. Mild TTP of cervical spine - flexion/extension/ro tation of the neck appears unaffected. Given recent [...] for 11/20/2024. #Recent fall: Patient seen at [facility] ED 11/02/2024 s/p fall at work. Denied [...] diffuse joint pain and fatigue. Follows with divemaster Dr. Clark out of [place], records requested and not yet available for my review. 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 States this was diagnosed by Dr. Dubon out of [place], [place]. Taking methocarbamol 750 mg 3 times daily and gabapentin 100 mg twice daily with moderate relief of discomfort. Patient awaiting surgical scheduling for correction. 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 States she has felt many health care [...] discussed. Follow-up in , sooner should any questions/concerns arise. Case discussed with collaborating physician Velia Morrison who has reviewed the assessment/plan. Chart, medications, labs, and vital signs reviewed. Dictation completed with the use of [employer] voice recognition software, prone to medical misidentifications and grammatical errors. All errors are unintentional. [...] intact. Mild TTP of cervical spine - flexion/extension/ro tation of the neck appears unaffected. Given recent [...] for 11/20/2024. #Recent fall: Patient seen at [facility] ED 11/02/2024 s/p fall at work. Denied [...] diffuse joint pain and fatigue. Follows with divemaster Dr. Clark out of [place], records requested and not yet available for my review. 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 States this was diagnosed by Dr. Dubon out of [place], [place]. Taking methocarbamol 750 mg 3 times daily and gabapentin 100 mg twice daily with moderate relief of discomfort. Patient awaiting surgical scheduling for correction. 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 States she has felt many health care [...] discussed. Follow-up in , sooner should any questions/concerns arise. Case discussed with collaborating physician Velia Morrison who has reviewed the assessment/plan. Chart, medications, labs, and vital signs reviewed. Dictation completed with the use of [employer] voice recognition software, prone to medical misidentifications and grammatical errors. All errors are unintentional. [...] intact. Mild TTP of cervical spine - flexion/extension/ro tation of the neck appears unaffected. Given recent [...] for 11/20/2024. #Recent fall: Patient seen at [facility] ED 11/02/2024 s/p fall at work. Denied [...] diffuse joint pain and fatigue. Follows with divemaster Dr. Clark out of [place], records requested and not yet available for my review. 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 States this was diagnosed by Dr. Dubon out of [place], [place]. Taking methocarbamol 750 mg 3 times daily and gabapentin 100 mg twice daily with moderate relief of discomfort. Patient awaiting surgical scheduling for correction. 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 States she has felt many health care [...] discussed. Follow-up in , sooner should any questions/concerns arise. Case discussed with collaborating physician Velia Morrison who has reviewed the assessment/plan. Chart, medications, labs, and vital signs reviewed. Dictation completed with the use of [employer] voice recognition software, prone to medical misidentifications and grammatical errors. All errors are unintentional. [...] intact. Mild TTP of cervical spine - flexion/extension/ro tation of the neck appears unaffected. Given recent [...] for 11/20/2024. #Recent fall: Patient seen at [facility] ED 11/02/2024 s/p fall at work. Denied [...] diffuse joint pain and fatigue. Follows with divemaster Dr. Clark out of [place], records requested and not yet available for my review. 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 States this was diagnosed by Dr. Dubon out of [place], [place]. Taking methocarbamol 750 mg 3 times daily and gabapentin 100 mg twice daily with moderate relief of discomfort. Patient awaiting surgical scheduling for correction. 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 States she has felt many health care [...] discussed. Follow-up in , sooner should any questions/concerns arise. Case discussed with collaborating physician Velia Morrison who has reviewed the assessment/plan. Chart, medications, labs, and vital signs reviewed. Dictation completed with the use of [employer] voice recognition software, prone to medical misidentifications and grammatical errors. All errors are unintentional. [...] intact. Mild TTP of cervical spine - flexion/extension/ro tation of the neck appears unaffected. Given recent [...] for 11/20/2024. #Recent fall: Patient seen at [facility] ED 11/02/2024 s/p fall at work. Denied fall onto outstretched hands, head strike, or LOC at that time. While in the emergency department CT of the right lower extremity and x-ray of the right hip were obtained neutral without acute abnormalities. #Rheumatoid arthritis: RF positive at 152, ESR/CRP/ACMILO WNL. Has been treated previously with Humira, Enbrel, and Remicade without symptom improvement. Experiences diffuse joint pain and fatigue. Follows with divemaster Dr. Clark out of [place], records requested and not yet available for my review. 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 States this was diagnosed by Dr. Dubon out of [place], [place]. Taking methocarbamol 750 mg 3 times daily and gabapentin 100 mg twice daily with moderate relief of discomfort. Patient awaiting surgical scheduling for correction. 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 States she has felt many health care [...] discussed. Follow-up in , sooner should any questions/concerns arise. Case discussed with collaborating physician Velia Morrison who has reviewed the assessment/plan. Chart, medications, labs, and vital signs reviewed. Dictation completed with the use of [employer] voice recognition software, prone to medical misidentifications and grammatical errors. All errors are unintentional. [...] CAMILO w/Reflex 10/28/2024 ESR 10/28/2024 ESR 12/13/2024 Ultrasound : Neck 01/22/2025 EKG 11/18/2024 CBC (COMPLETE BLOOD COUNT) WITH DIFF 05/2025 COMPLEMENT C3 12/13/2024 COMPLEMENT C4 12/13/2024 COMPREHENSIVE METABOLIC PANEL 12/13/2024 CRP, HIGH SENSITIVITY 10/28/2024 FERRITIN 10/28/2024 IRON & TIBC 10/28/2024 LIPID PANEL 10/28/2024 TSH 10/28/2024 Anti Bermeo Antibody 12/13/2024 CBC with Differential 10/28/2024 RHEUMATOID FACTOR 10/28/2024 HS CRP 12/13/2024 VITAMIN D,25-OH,TOTAL,IA 10/28/2024 CR Spine Cervical Min 4 Views 11/18/2024 US Soft Tissue Head Neck 02/03/2025 Comp. Metabolic Panel [id number] Anti-Mi-2 Ab (RDL)-[id number] 12/13/2024 Anti-Ro (SS-A) Ab (RDL)-[id number] Anti-La (SS-B) Ab (RDL)-[id number] 5 MG MAMMO DIGITAL SCREENING W HERACLIO BILAT 02/05/2025 CREATINE KINASE AND CKMB 12/13/2024 Next Appt Details Provider Name:IKER Nichols, 02/13/2025 01:00:00 PM, [address], [address], [place], [address], Insurance Providers Payer Name Payer Address Payer Phone Subscriber Number Group Number Insured Name Patient Relationship to Insured Coverage Start Date Coverage End Date [facility] [address] [facility] [id number] María Phillips Self - patient is the insured 2020 MEDICAL (GENERAL) HISTORY Surgical History Surgery Date(Month/Year) ventral hernia repair 2017 cholecystectomy 1999 left ACL repair 1997 Right carpal tunnel release 2019 bilateral strabismus correction 1974
--- OUTSIDE RECORDS SUMMARY | 2025-02-06 10:25 | XMS_ITS ---
Author Organization [employer] Address [address] [place] [id number] Care Team Providers Care Field Coordinator Name Role Phone IKER ROBLERO PA-C Primary Care Provider Latonya Ramirez Unavailable [phone] REASON FOR VISIT X RAY REPORT Encounters Encounter Location Date Provider Diagnosis [facility] [address] [place] [address] 01/22/2025 Latonya Lozano Plan Of Treatment Next Appt Details Provider Name:Latonya lopez, 02/14/2025 11:00:00 AM, [address] [facility], [facility] [address], [place], [address], Progress Notes * MIS OLSONOB:1965 (59 yo F)Acc No.[id number]:01/22/2025 Patient:?MARCUS OLSON :1965???Age:59 Y???Sex:Female Address:[address] [place] [address], [phone] * true * Date:? Generated for Printi chema/Hilton/eTransmitting on:?02/06/2025 10:25 AM EDT
--- OUTSIDE RECORDS SUMMARY | 2025-02-06 10:25 | XMS_ITS ---
Author Organization [facility] Address [address] [address] Care Team Providers Care Nurse Anesthesia Program Director Name Role Phone LINDA KHAN Primary Care Provider [phone] Hugo Plata Unavailable [phone] REASON FOR VISIT Diagnosis Encounters Encounter Location Date Provider Diagnosis [facility] 294 [facility] [address] [place] [address] 10/24/2024 Hugo Plata Plan Of Treatment No Information Progress Notes * MIS OLSONOB:1965 (59 yo F)Acc No.[id number]:10/24/2024 Patient:?WHITNEY MARCUS :1965???Age:59 Y???Sex:Female Address:[address] [place] [id number] * true * Date:? Generated for Renay bear/Hilton/eTransmitting on:?02/06/2025 10:25 AM EDT
--- OUTSIDE RECORDS SUMMARY | 2025-02-06 10:26 | XMS_ITS ---
Author Organization [facility] Address [address] [place] [id number] Care Team Providers Care Petroleum Inspector Name Role Phone LINDA KHAN Primary Care Provider REASON FOR VISIT Transferring out Encounters Encounter Location Date Provider Diagnosis [facility] [address] [address] 10/31/2024 LINDA KHAN Plan Of Treatment No Information Progress Notes * MIS OLSONOB:1965 (59 yo F)Acc No.[id number]:10/31/2024 Patient:?MARCUS OLSON :1965???Age:59 Y???Sex:Female Address:[address] [place] [id number] * true * Date:? Generated for Renay bear/Hilton/eTransmitting on:?02/06/2025 10:26 AM EDT
--- OUTSIDE RECORDS SUMMARY | 2025-02-06 10:26 | XMS_ITS ---
Author Organization [facility] Address [address] [place] [address] Care Team Providers Care Blending Tank Helper Name Role Phone ANNIKADANIELLE PASCALYN Unavailable [phone] CHINO YBARRA Unavailable [phone] ALLERGIES Allergen (clinical drug ingredient) Drug/Non Drug Allergy documented on EMR Reaction Allergy Type Onset Date Status Macrolides and Ketolides hives Drug Allergy Active REASON FOR VISIT f/u on neck pain; new c/o of left axilla lumps and arm pain MEDICATIONS Medication SIG (Take, Route, Fr equency, Duration) Notes Start Date End Date Status Gabapentin 100 MG 2 capsules Orally tw ice daily for 30 days Active Ibuprofen 600 MG 1 tablet with food o r milk Orally Three times a day for 10 days 12/03/2024 Active LORazepam 1 MG TAKE 1 TABLET BY [facility] 3 TIMES A DAY IF NEEDED FOR ANXIETY FOR UP TO 5 DAYS. MAX DAILY AMOUNT 3 TAB Oral for 5 Days Active Cetirizine HCl 10 MG 1 tablet Orally Once a day Active Methocarbamol 750 MG 1 tablet Orally twice daily Active Meloxicam 15 MG Oral for 30 Days Active traMADol HCl 50 MG 1 tablet as needed f or severe pain Orally every 4-6 hours for 14 days 01/22/2025 Active VITAL SIGNS Blood pressure systolic 118 mm Hg 02/04/20 25 Blood pressure diastolic 78 mm Hg 025 Heart Rate 70 /min 02/03/2025 Height 61 in 02/03/2025 Weight 166 lbs 02/03/2025 BMI 31.36 kg/m2 02/03/2025 Encounters Encounter Location Date Provider Diagnosis [facility] [address] [address] 02/03/2025 CHINO YBARRA Lymphadenopathy, axillary R59.0 ; Rheumatoid arthritis involving multiple sites, unspecified whether rheumatoid factor present M06.9 ; 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 Dubon out of [place], [place]. Taking methocarbamol 750 mg 3 times daily and gabapentin 100 mg 3 times daily with moderate relief of discomfort. # Anxiety: Stable mood in office. Follows with psychiatric nurse practitioner Casisdy Quiroz as well as therapist. Continue lorazepam [...] Dictation was accomplished with the use of QingKe voice recognition software, which is prone to medical misidentifications and grammatical errors. This are unintentional and the practitioner does try to identify and correct these, but some could still be present. Please do not hesitate to contact practitioner for clarification. 02/03/2025 Rheumatoid arthritis involving multiple sites, unspecified [...] was diagnosed by Dr. Dubon out of [place], [place]. Taking methocarbamol 750 mg 3 times [...] Dictation was accomplished with the use of QingKe voice recognition software, which is prone to [...] was diagnosed by Dr. Dubon out of [place], [place]. Taking methocarbamol 750 mg 3 times [...] Dictation was accomplished with the use of QingKe voice recognition software, which is prone to medical misidentifications and grammatical errors. This are unintentional and the practitioner does try to identify and correct these, but some could still be present. Please do not hesitate to contact practitioner for clarification. 02/03/2025 Slipped rib syndrome (ICD-10 - M94.0) [...] was diagnosed by Dr. Dubon out of [place], [place]. Taking methocarbamol 750 mg 3 times [...] Dictation was accomplished with the use of QingKe voice recognition software, which is prone to [...] was diagnosed by Dr. Dubon out of [place], [place]. Taking methocarbamol 750 mg 3 times [...] Dictation was accomplished with the use of QingKe voice recognition software, which is prone to medical misidentifications and grammatical errors. This are unintentional and the practitioner does try to identify and correct these, but some could still be present. Please do not hesitate to contact practitioner for clarification. 02/03/2025 Tendon calcification (ICD-10 - M65.80) María [...] was diagnosed by Dr. Dubon out of [place], [place]. Taking methocarbamol 750 mg 3 times [...] Dictation was accomplished with the use of QingKe voice recognition software, which is prone to medical misidentifications and grammatical errors. This are unintentional and the practitioner does try to identify and correct these, but some could still be present. Please do not hesitate to contact practitioner for clarification. PLAN OF TREATMENT Pending Test Test Name Order Date US Soft Tissue Head Neck 02/03/2025 Next Appt Details Provider Name:IKER Nichols, 02/13/2025 01:00:00 PM, [address] [facility] [address], [address], [place], [address], Progress Notes * David OLSONOB:1965 (59 yo F)Acc No.[id number]:02/03/2025 Progress Notes Patient:??María OLSON Provider:??CHINO YBARRA :1965?Age:59 Y?Sex:Fe male Date:02/03/2025 Address:[address] [place] [address], [id number] Subjective: * Chief Complaints: * ?1. F/u on neck pain; n ew c/o of left axilla lumps and arm pain. * HPI: ?Constitutional:? María is a 59-year-old female with history of rheumatoid arthritis, slipped rib syndrome, and Rock's who presents today for follow-up of right- sided neck pain as well as new onset pain in her axilla. ?Patient underwent ultrasound of the right side of her neck to further investigate the symptoms, found to have a circumscribed homogenous hypoechoic oval mass with long axis parallel. Mild posterior enhancement. No definitive echogenic fatty hilum. No calcification, no suspicious color signal. Measuring 1.3 cm. Nonspecific, could represent a lymph node. There are tiny small probable cysts in each thyroid lobe measuring less than 0.5 cm that do not require specific imaging follow-up. Thyroid largely appears within normal limits. ?Today, she states that the lymph node in her neck is stable in size and denies any worsening of pain. ?Patient also complains of painful left axillary lumps noticed 1 week ago. She states the lumps have not changed in size and are not associated with any overlying skin changes such as erythema, rashes, or lesions. At the worst she reports her pain is an 8/10 and exacerbated by abduction of the shoulder. She denies any numbness or tingling in the extremity. 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 She states she had COVID a few weeks ago but has since recovered and denies any fever or upper respiratory symptoms at this time. So far she has tried heat, ice, Tylenol and Ibuprofen as needed for pain with little to no relief. She has a mammogram scheduled for this MondayFebruary 05. Denies any breast pain or concerns at this time. * ROS:?Constitutional: Patient denies any excessive fatigue with exercise, no weight loss, no fever, no night sweats, no changes in sleep. ???Eyes: No eye discharge, no itching, no redness, no vision changes. Advised the significance of regular eye exams to screen for glaucoma and other eye problems. ???Ear nose throat: No ear pain, No sore throat, no postnasal drip, no runny nose, no sneezing, no hearing changes ???Cardiovascular: No chest pain, no dyspnea on exertion, no PND, no orthopnea, no irregular pulse, no palpitations, no claudication, no diaphoresis, no claudication. ???Respiratory: No chronic cough, no hemoptysis, no sputum, no wheezing, no SOB, no pleuritic pain. ???GI: No diarrhea, no constipation, no blood in the stools, no pain associated with eating, no indigestion, no difficulty swallowing, no appetite change. ???Genitourinary: No painful urination, no hesitancy, no blood in the urine, no incontinence, no frequency, no urgency, no abnormal discharge. ???Musculoskeletal: No back pain, no joint pain, no limitations to walking and running, no joint deformity, no joint stiffness, no muscle weakness ???Integumentary: No new skin rash. No new changes in skin moles, no pruritis, no color change. ???Neurological: No history of seizures, no memory loss, no language dysfunction, no inability to concentrate, no localized weakness, no sensation loss, no confusion, no dizziness, no tremor, no numbness, no tingling. ???Psychiatric: no anxiety, no depression, no suicidal thoughts, feels safe at home. ???Endocrine: No polyuria, no polyphagia, no polydipsia. No heat/cold intolerance, no excesss thirst. ???Hematological: + Reports swelling of lymph nodes in left axilla. No easy bruising or bleeding. * Medical History:??Medical Hi story Verified. * Surgical History:??ventral h ernia repair 2017, cholecystectomy 1999, left ACL repair 1997, Right carpal tunnel release 2019, bilateral strabismus correction 1973. * Hospitalization/Major Diagno stic Procedure:??Denies Past Hospitalization. * Family History:??Father: dec eased, esophageal cancer, HTN.??Mother: , COVID.??2 sister(s) - healthy. 2 daughter(s) - healthy. .?? * Social History:?ETOH Use: Social ???Tob Use: 1/2 PPD x20 years ???Recreational drug Use: Denies. * Medications:??Taking traMADo l HCl 50 MG Tablet 1 tablet as needed for severe pain Orally every 4-6 hours , Taking Methocarbamol 750 MG Tablet 1 tablet Orally twice daily , Taking Cetirizine HCl 10 MG Tablet 1 tablet Orally Once a day , Taking LORazepam 1 MG Tablet TAKE 1 TABLET BY MOUTH 3 TIMES A DAY IF NEEDED FOR ANXIETY FOR UP TO 5 DAYS. MAX DAILY AMOUNT 3 TAB Oral , Taking Ibuprofen 600 MG Tablet 1 tablet with food or milk Orally Three times a day As needed for pain, Taking Gabapentin 100 MG Capsule 2 capsules Orally twice daily , Taking Meloxicam 15 MG Tablet Oral , Medication List reviewed and reconciled with the patient * Allergies:??Macrolides and K etolides: hives. Objective: * Vitals:??HR:70/min, BP:118/7 8mm Hg, Wt:166lbs, BMI:31.36Index, Ht: 61 in. * Physical Examination:?General: Age appropriate 59-year-old female, well appearing, no acute distress, speaking in full sentences without respiratory compromise. Well groomed, well developed. Alert, Interactive. ?Skin: Warm, dry and intact. No lesions/rashes/erythema. ?HEENT: Normocephalic/atraumatic. Vision intact. No ptosis or lid lag. Nares without discharge or inflammation. ?Neck/Thyroid: Supple, with no lymphadenopathy. Full ROM. ?Lung: Clear to auscultation bilaterally, no wheezes, rales or rhonchi. No barrel chest. Equal chest rise and fall bilaterally. ?Cardiac: S1 and S2 appreciated. No murmurs/rubs or gallops. DP pulses intact 2+ bilaterally. Capillary refill <2 seconds. ?Extremities: + There is some lymphadenopathy and tenderness to palpation of the central and posterior lymph nodes. No overlying rashes or erythema. Palpation of the right axilla reveals no lymphadenopathy or tenderness. Tenderness is produced with abduction of the right upper extremity. ?Neuro: CN II-XI grossly intact. Steady gait with ambulation observed. Symmetric reflexes. ?Psych: Stable mood and affect. 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 María is a 59-year-old fem inez with history of rheumatoid arthritis, slipped rib syndrome, and Rock's thyroiditis who presents today for follow-up of right- sided neck pain as well as new onset [...] Rheumatoid factor positive on 10/28/2024 at 152. C- reactive protein 0.58 within normal limits. ESR 4. Negative CAMILO. Continue meloxicam 15 mg tablet daily for pain. Continue follow-up with rheumatology. 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 Dubon out of [place], [place]. Taking methocarbamol 750 mg 3 times [...] Dictation was accomplished with the use of QingKe voice recognition software, which is prone to medical misidentifications and grammatical errors. This are unintentional and the practitioner does try to identify and correct these, but some could still be present. Please do not hesitate to contact practitioner for clarification. Plan: * Treatment: * Images: Billing Information: * Visit Code:?? 61287 Office Visit, Est Pt., Level 4. Modifiers: 25, SA * Procedure Codes:?? Care Plan Details* * Sign off status: Completed true * Provider:??CHINO YBARRA Date:?? 025 History and Physical Notes * HPI (History of Present Illness) Category Sub-Category Detail Notes Category Not es Constitutional María is a 59-year-old female with history of rheumatoid arthritis, slipped rib syndrome, and Rock's who presents today for follow-up of right-sided neck pain as well as new onset pain in her axilla. Patient underwent ultrasound of the right side of her neck to further investigate the symptoms, found to have a circumscribed homogenous hypoechoic oval mass with long axis parallel. Mild posterior enhancement. No definitive echogenic fatty hilum. No calcification, no suspicious color signal. Measuring 1.3 cm. Nonspecific, could represent a lymph node. There are tiny small probable cysts in each thyroid lobe measuring less than 0.5 cm that do not require specific imaging follow-up. Thyroid largely appears within normal limits. Today, she states that the lymph node in her neck is stable in size and denies any worsening of pain. Patient also complains of painful left axillary lumps noticed 1 week ago. She states the lumps have not changed in size and are not associated with any overlying skin changes such as erythema, rashes, or lesions. At the worst she reports her pain is an 8/10 and exacerbated by abduction of the shoulder. She denies any numbness or tingling in the extremity. 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 She states she had COVID a few weeks ago but has since recovered and denies any fever or upper respiratory symptoms at this time. So far she has tried heat, ice, Tylenol and Ibuprofen as needed for pain with little to no relief. She has a mammogram scheduled for this MondayFebruary 05. Denies any breast pain or concerns at this time. Physical Examination Category Sub-Category Detail Notes Section Note s General: Age appropriate 59-year-old female, well appearing, no acute distress, speaking in full sentences without respiratory compromise. Well groomed, well developed. Alert, Interactive. Skin: Warm, dry and intact. No lesions/rashes/erythema. HEENT: Normocephalic/atraumatic. Vision intact. No ptosis or lid lag. Nares without discharge or inflammation. Neck/Thyroid: Supple, with no lymphadenopathy. Full ROM. Lung: Clear to auscultation bilaterally, no wheezes, rales or rhonchi. No barrel chest. Equal chest rise and fall bilaterally. Cardiac: S1 and S2 appreciated. No murmurs/rubs or gallops. DP pulses intact 2+ bilaterally. Capillary refill <2 seconds. Extremities: + There is some lymphadenopathy and tenderness to palpation of the central and posterior lymph nodes. No overlying rashes or erythema. Palpation of the right axilla reveals no lymphadenopathy or tenderness. Tenderness is produced with abduction of the right upper extremity. Neuro: CN II-XI grossly intact. Steady gait with ambulation observed. Symmetric reflexes. Psych: Stable mood and affect
--- OUTSIDE RECORDS SUMMARY | 2025-02-06 10:26 | XMS_ITS | Patient Health Record ---
Author Organization [facility] Address [address] [place] [address] Care Team Providers Care Reading Specialist Name Role Phone DUDLEYUlices LINDA Primary Care Provider SharifcarlosHugo brumfield Unavailable [phone] Allergies Allergen (clinical drug ingredient) Drug/Non Drug Allergy documented on EMR Reaction Allergy Type Onset Date Status azithromycin Azithromycin Unknown Drug Allergy A ctive clindamycin Clindamycin Unknown Drug Allergy Act aashish Results Component Value Reference Range Notes XR CERVICAL SPINE 4-5 VIEWS Reviewed date:11/21/2024 07:59:09 AM Interpretation: Performing Lab: Notes/Report: Note See Note [facility], a member of [employer] Patient Name: MARÍA OLSON Date of : 1965 Reason for Exam: OTHER Exam Date: 11/18/2024 [id number] EST Report Status: Final Ordering Provider: IKER [...] to the prior neck CTA. Telerad PA ([id number]) -------- FINAL REPOR T -------- Dictated By: Dayami Walker i Dictated Date: 11/19/2024 13:40 ET Assigned Physician: Dayami Diehl Reviewed and Electronically Signed By: Dayami Diehl Signed Date: 025 13:45 ET Workstation ID: [id number] Transcribed By: Self Edit Transcribed Date: 11/19/2024 13:40 ET CBC With Differential/Platel et-[id number] Reviewed date:07/30/2024 07:54:24 AM Interpretation: Performing Lab:[facility], [address] [place] [address], Phone - [phone], Director - Elsa Notes/Report: WBC 5.4 3.4-10.8 [...] Immature Grans (Abs) 0.0 0.0-0.1 x10E3/uL TSH+Free [id number] Reviewed date:07/30/2024 07:54:27 AM Interpretation: Performing Lab:[facility], [address] [place] [address], Phone - [phone], Director - Jennifery Notes/Report: TSH 0.365 0.450-4.500 uIU/mL T4,Free(Direct) 1.20 0.82-1.77 ng/dL Lipid Panel-[id number] Reviewed date:07/30/2024 03:17:56 PM Interpretation: Performing Lab:[facility], [address] [place] [address], Phone - [phone], Director - dry Notes/Report: Cholesterol, Total 266 100-199 mg/dL Triglycerides 102 0-149 mg/dL HDL Cholesterol 82 >39 mg/dL VLDL Cholesterol Corby 17 5-40 mg/dL LDL Chol Calc ([facility]) 167 0-99 mg/dL Comp. Metabolic Panel (14)-3 Reviewed date:07/30/2024 07:54:38 AM Interpretation: Performing Lab:[facility], [address] [place] [address], Phone - [phone], Director - Jennifery Notes/Report: Glucose 92 70-99 [...] IU/L ALT (SGPT) 23 0-32 IU/L Lipid Panel-[id number] Reviewed date:09/09/2024 12:30:11 PM Interpretation: Performing Lab:[facility], [address] [place] [address], Phone - [phone], Director - Elsa Notes/Report: Cholesterol, Total 269 100-199 mg/dL Triglycerides 73 0-149 mg/dL HDL Cholesterol 96 >39 mg/dL VLDL Cholesterol Corby 12 5-40 mg/dL LDL Chol Calc ([facility]) 161 0-99 mg/dL Reason For Referral Reason Evaluation and manag ement - Dr New Diagnosis 1 Sprain of ribs, init ial encounter (S23.41XA) Referral Organization [facility] Referring Provider First Name LINDA Referring Provider Last Name [facility] Referring Provider Speciality Internal edicine Referred Provider Specialty Physical Med icine General Notes Referral faxed to Raoul ramez Physical Medicine - Office will call patient for scheduling.Bk Latraya 08/21/2024 04:24:37 PM > Referral Priority Routine Reason Evaluation and manag ement Diagnosis 1 Sprain of ribs, init ial encounter (S23.41XA) Referral Organization [facility] Referring Provider First Name LINDA Referring [...] ribs, init ial encounter (S23.41XA) Referral Organization [facility] Referring Provider First Name LINDA Referring Provider Last Name [facility] Referring Provider Speciality Internal edicine Referred Provider Specialty Pulmonology General Notes Referral sent to Tom angulo [facility] - Office will call patient for scheduling.Bk Latraya 08/27/2024 04:11:52 PM > Referral Priority Routine Reason Please evaluate and treat Diagnosis 1 Spondylolisthesis, l umbar region (M43.16) Referral Organization [facility] Referring Provider First Name Hugo Referring Provider Last Name Sherlyn Referred Provider Specialty Orthopedic S urgery General Notes Referral faxed to Dr Clive Ross per patient's request at [phone]., Adelita Cerrato 10/03/2024 11:16:33 AM > Referral [...] W/U Status Risk Notes Problem Autoimmune thyroiditis (85736186) Autoimmune thyroiditis (E06.3) Active confirmed Problem Vitamin deficiency (59773089) Vitamin deficiency, unspecified (E56.9) Active confirmed Problem Mixed hyperlipidemia (142156093) Mixed hyperlipidemia (E78.2) Active confirmed Problem Tobacco user (217092575) Nicotine dependence, cigarettes, uncomplicated (F17.210) Active confirmed Problem Generalized anxiety disorder (61454991) Generalized anxiety disorder (F41.1) Active confirmed Problem Chronic sinusitis (58759366) Chronic sinusitis, unspecified (J32.9) Active confirmed Problem Rheumatoid arthritis (64928887) Other rheumatoid arthritis with rheumatoid factor of unspecified site (M05.80) Active confirmed Problem Acquired spondylolisthesis (293013422) Spondylolisthesis , lumbar region (M43.16) Active confirmed Problem Solitary sacroiliitis (201081595) Sacroiliitis, not elsewhere classified (M46.1) Active confirmed Problem Solitary pulmonary nodule (492203309) Solitary pulmonary nodule (R91.1) Active confirmed Vital Signs Heart Rate 75 /min 09/24/2024 Temperature 97.4 degrees Fahrenheit 09/24/2024 Blood pressure diastolic 76 mm Hg 09/24/2024 Oximetry 98 % 09/24/2024 Height 5'4 in 09/24/2024 Blood pressure systolic 130 mm Hg 09/24/2024 Weight 164 lbs 09/24/2024 BMI 28.15 kg/m2 09/24/2024 Encounters Encounter Location Date Provider Diagnosis [address] [address] 07/29/2024 [facility] GUL Other rheumatoid arthritis with rheumatoid factor of unspecified site M05.80 ; Latent tuberculosis Z22.7 ; Personal history of COVID-19 Z86.16 ; Generalized anxiety disorder F41.1 ; Nicotine dependence, cigarettes, uncomplicated F17.210 ; Tobacco abuse counseling Z71.6 ; Solitary pulmonary nodule R91.1 ; Autoimmune thyroiditis E06.3 and Acute sinusitis, unspecified J01.[address] [address] 08/16/2024 Ghadeer Mazloum Bilateral temporomandibular joint disorder, unspecified M26.603 ; Chronic sinusitis, unspecified J32.9 and Mixed hyperlipidemia E78.[address] [address] 08/21/2024 MCKEONNOREEN BUCKNERL Sprain of ribs, init ial encounter S23.41XA [address] [place] [address] 09/24/2024 Ghadeer Mazloum Intercostal pain R07 .82 and Sacroiliitis, not elsewhere classified M46.1 [facility] [address] [place] [address] 07/16/2024 [facility] [address] [place] [address] 07/29/2024 [facility] [address] [place] [address] 07/30/2024 [facility] Mixed hyperlipidemia E78.2 [facility] [address] [place] [address] 08/07/[address] [place] [address] 08/19/[address] [place] [address] 08/20/[address] [place] [address] 08/21/2024 MCKEON GUL Sprain of ribs, init ial encounter S23.41XA [facility] [address] [place] [address] 08/28/[address] [place] [address] 09/02/[address] [place] [address] 09/04/2024 MCKEON GUL Left upper quadrant pain R10.12 and Sprain of ribs, initial encounter S23.41XA [facility] [address] [place] [address] 09/16/2024 MCKEON GUL Left upper quadrant pain R10.[address] [place] [address] 10/31/2024 [facility] [address] [place] [address] 07/31/2024 MCKEON GUL Weakness R53.1 and L eft upper quadrant pain R10.12 [facility] [address] [place] [address] 08/14/2024 [facility] [address] [place] [address] 08/20/2024 [facility] [address] [place] [address] 08/20/2024 [facility] [address] [place] [address] 08/20/2024 [facility] [address] [place] [address] 08/22/2024 [facility] [address] [place] [address] 08/22/2024 [facility] [address] [place] [address] 08/22/2024 [facility] [address] [place] [address] 08/22/2024 [facility] [address] [place] [address] 08/22/2024 [facility] [address] [place] [address] 08/23/2024 [facility] [address] [place] [address] 08/23/2024 [facility] [address] [place] [address] 08/23/2024 [facility] [address] [place] [address] 08/23/2024 MCKE[facility] GUL [facility] [address] [place] [address] 08/23/2024 [facility] [address] [facility] [place] [address] 08/26/2024 MCKE[facility] L [facility] [address] [place] [address] 08/26/2024 [facility] [address] [place] [address] 08/27/2024 [facility] [address] [place] [address] 08/27/2024 [facility] [address] [place] [address] 08/27/2024 [facility] [address] [place] [address] 08/27/2024 [facility] [address] [place] [address] 08/28/2024 [facility] [address] [place] [address] 08/28/2024 [facility] [address] [place] [address] 08/28/2024 [facility] [address] [place] [address] 08/28/2024 [facility] GUL [facility] [address] [place] [address] 08/28/2024 [facility] [address] [place] [address] 08/28/2024 [facility] [address] [place] [address] 08/28/2024 [facility] [address] [place] [address] 08/28/2024 [facility] [address] [place] [address] 08/28/2024 [facility] [address] [place] [address] 08/28/2024 [facility] [address] [place] [address] 08/28/2024 [facility] [address] [place] [address] 08/30/2024 [facility] [address] [place] [address] 09/02/2024 MC[facility] Left upper quadrant pain R10.12 [facility] [address] [place] [address] 09/03/2024 [facility] [address] [place] [address] 09/04/2024 MCKEON [facility] Vitamin deficiency, unspecified E56.9 [facility] [address] [place] [address] 09/04/2024 MCKE[facility] GUL Encounter for screen ing mammogram for malignant neoplasm of breast Z12.31 [facility] [address] [place] [address] 09/05/2024 [facility] [address] [place] [address] 09/06/2024 [facility] [address] [place] [address] 09/09/2024 [facility] [address] [place] [address] 09/11/2024 [facility] [address] [place] [address] 09/17/2024 [facility] [address] [place] [address] 09/17/2024 [facility] [address] [place] [address] 09/17/2024 [facility] [address] [place] [address] 09/18/2024 [facility] [address] [place] [address] 09/19/2024 [facility] [address] [place] [address] 09/19/2024 [facility] [address] [facility] [place] [address] 09/25/2024 [facility] [address] [place] [address] 09/26/2024 [facility] [address] [facility] [place] [address] 09/30/2024 [facility] [address] [facility] [place] [address] 10/01/2024 [facility] [address] [facility] [place] [address] 10/01/2024 [facility] [address] [place] [address] 10/07/2024 [facility] [address] [place] [address] 10/07/2024 [facility] [address] [place] [address] 10/10/2024 [facility] [address] [place] [address] 10/21/2024 Hugo Olguincarlosoctaviano Rib pain on right si de R07.81 [facility] [address] [place] [address] 10/24/2024 Hugo Plata Assessments Encounter Date Diagnosis (ICD Code) Assessment Notes Treatment Notes Treatment Clinical Notes Section Notes 07/29/2024 Other rheumatoid arthritis with rheumatoid factor of unspecified site (ICD-10 - M05.80) María is a 59-year-old lady with rheumatoid arthritis, generalized anxiety disorder here to establish care. Plan is as follows: Rheumatoid arthritis. She sees Dr. Bang at [facility]. 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 Generalized anxiety disorder. Mood is stable on [...] is asymptomatic Eye screening. She sees her paving contractor Dr. Leonardo regularly. Dental screening. She sees dentist regularly. Breast cancer screening. She is up-to-date on her mammogram. Female screening. She follows up with her raise drill operator for breast and pelvic exams. Colon cancer screening. She had her colonoscopy done in 2022 and is on 24-mcwq-sotpw. Immunizations. She is up-to-date on her COVID [...] Rheumatoid arthritis. She sees Dr. Bang at [facility]. 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 Generalized anxiety disorder. Mood is stable on [...] is asymptomatic Eye screening. She sees her paving contractor Dr. Leonardo regularly. Dental screening. She sees dentist regularly. Breast cancer screening. She is up-to-date on her mammogram. Female screening. She follows up with her raise drill operator for breast and pelvic exams. Colon cancer screening. She had her colonoscopy done in 2022 and is on 72-qjrf-nubfh. Immunizations. She is up-to-date on her COVID [...] Rheumatoid arthritis. She sees Dr. Bang at [facility]. 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 Generalized anxiety disorder. Mood is stable on [...] is asymptomatic Eye screening. She sees her paving contractor Dr. Leonardo regularly. Dental screening. She sees dentist regularly. Breast cancer screening. She is up-to-date on her mammogram. Female screening. She follows up with her raise drill operator for breast and pelvic exams. Colon cancer screening. She had her colonoscopy done in 2022 and is on 02-[id number]-[id number]. Immunizations. She is up-to-date on her COVID [...] Rheumatoid arthritis. She sees Dr. Bang at [facility]. 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 Generalized anxiety disorder. Mood is stable on [...] is asymptomatic Eye screening. She sees her paving contractor Dr. Leonardo regularly. Dental screening. She sees dentist regularly. Breast cancer screening. She is up-to-date on her mammogram. Female screening. She follows up with her raise drill operator for breast and pelvic exams. Colon cancer screening. She had her colonoscopy done in 2022 and is on 41-[id number]-omams. Immunizations. She is up-to-date on her COVID [...] Rheumatoid arthritis. She sees Dr. Bang at [facility]. 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 Generalized anxiety disorder. Mood is stable on [...] is asymptomatic Eye screening. She sees her paving contractor Dr. Leonardo regularly. Dental screening. She sees dentist regularly. Breast cancer screening. She is up-to-date on her mammogram. Female screening. She follows up with her raise drill operator for breast and pelvic exams. Colon cancer screening. She had her colonoscopy done in 2022 and is on 19-fzxz-lbgae. Immunizations. She is up-to-date on her COVID [...] Rheumatoid arthritis. She sees Dr. Bang at [facility]. 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 Generalized anxiety disorder. Mood is stable on [...] is asymptomatic Eye screening. She sees her paving contractor Dr. Leonardo regularly. Dental screening. She sees dentist regularly. Breast cancer screening. She is up-to-date on her mammogram. Female screening. She follows up with her raise drill operator for breast and pelvic exams. Colon cancer screening. She had her colonoscopy done in 2022 and is on 96-gknq-gkfrf. Immunizations. She is up-to-date on her COVID [...] Rheumatoid arthritis. She sees Dr. Bang at [facility]. 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 Generalized anxiety disorder. Mood is stable on [...] is asymptomatic Eye screening. She sees her paving contractor Dr. Leonardo regularly. Dental screening. She sees dentist regularly. Breast cancer screening. She is up-to-date on her mammogram. Female screening. She follows up with her raise drill operator for breast and pelvic exams. Colon cancer screening. She had her colonoscopy done in 2022 and is on 16-ldgs-elqsu. Immunizations. She is up-to-date on her COVID [...] Rheumatoid arthritis. She sees Dr. Bang at [facility]. 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 Generalized anxiety disorder. Mood is stable on [...] is asymptomatic Eye screening. She sees her paving contractor Dr. Leonardo regularly. Dental screening. She sees dentist regularly. Breast cancer screening. She is up-to-date on her mammogram. Female screening. She follows up with her raise drill operator for breast and pelvic exams. Colon cancer screening. She had her colonoscopy done in 2022 and is on 72-namr-wqdoy. Immunizations. She is up-to-date on her COVID [...] Rheumatoid arthritis. She sees Dr. Bang at [facility]. 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 Generalized anxiety disorder. Mood is stable on [...] is asymptomatic Eye screening. She sees her paving contractor Dr. Leonardo regularly. Dental screening. She sees dentist regularly. Breast cancer screening. She is up-to-date on her mammogram. Female screening. She follows up with her raise drill operator for breast and pelvic exams. Colon cancer screening. She had her colonoscopy done in 2022 and is on 14-ikof-hcftc. Immunizations. She is up-to-date on her COVID [...] Coverage Start Date Coverage End Date [facility] [address] [address] [place] [address] [id number] RAMAH, MARÍA Self - patient is the insured 0 Medical (General) History Medical History History ICD Code TB treated by ID in [facility] RA treated by DR Bang at [facility] eye disease and see Dr Leonardo generalized anxiety disorder skin sensitivity Surgical History Surgery Date(Month/Year) carpal tunnel strabismus repair Gallbladder removed hernia repair
--- OUTSIDE RECORDS SUMMARY | 2025-02-06 10:26 | XMS_ITS | Clinical Summary ---
Author Organization [facility] Address [address] [place] [address] Phone Care Team Providers Care Geography Head Name Role Phone Araceli Augustin Primary Care [...] (four) times a day if needed. Active sucralfate (CARAFATE) 1 gram tablet Take 1 tablet (1 g total) by mouth 4 (four) times a day. Take 1 hour before meals and at bedtime 120 each 11 5 11/20/19 26 Active ibuprofen (ADVIL,MOTRIN) 600 mg tablet 5 Active docusate sodium (COLACE) 100 mg capsule 5 Active hydrOXYzine HCL (ATARAX) 25 mg tablet Take 1 tablet (25 mg total) by mouth every 8 (eight) hours if needed for anxiety for up to 14 days. 42 tablet 5 Active meloxicam (MOBIC) 15 mg tablet Take 1 tablet (15 mg total) by mouth 1 (one) time each day. Active LORazepam (ATIVAN) 1 mg tablet TAKE 1 TABLET BY MOUTH 3 TIMES A DAY IF NEEDED FOR ANXIETY FOR UP TO 5 DAYS. MAX DAILY AMOUNT 3 TAB Oral for 5 Days 01/23/20 25 Discontinued traZODone (DESYREL) 50 mg tablet TAKE ONE TAB NIGHTLY NEEDED FOR SLEEP. 5 01/23/20 25 Discontinued progesterone (PROMETRIUM) 100 mg capsule TAKE 1 CAPSULE BY MOUTH EVERY DAY AT BEDTIME FOR 90 DAYS 5 01/17/20 25 Discontinued oxyCODONE (ROXICODONE) 5 mg immediate release tablet 5 01/23/20 25 Discontinued gabapentin (NEURONTIN) 300 mg capsule 5 01/23/20 25 Discontinued estradioL (VIVELLE-DOT) 0.0375 mg/[address] 1 patch on the skin 2 (two) times a week. 5 01/17/20 25 Discontinued acetaminophen (TYLENOL) 325 mg tablet 5 01/23/20 25 Discontinued Hospital, Clinic, or Other Facility Administered Medication Ordered Dose Route Frequency Start Date End Date Status lidocaine (XYLOCAINE) 1 % injection 2 mLIndications:Post-tr aumatic osteoarthritis of left knee,Primary osteoarthritis of right knee 2 mL inj Once PRN Procedure 01/22/2025 01/22/2025 Ended lidocaine (XYLOCAINE) 1 % injection 2 mLIndications:Post-tr aumatic osteoarthritis of left knee,Primary osteoarthritis of right knee 2 mL inj Once PRN Procedure 01/22/2025 01/22/2025 Ended triamcinolone acetonide (KENALOG-40) 40 mg/mL injection 40 mgIndications:Post-tr aumatic osteoarthritis of left knee,Primary osteoarthritis of right knee 40 mg IAtc Once PRN Procedure 01/22/2025 01/22/2025 Ended triamcinolone acetonide (KENALOG-40) 40 mg/mL injection 40 mgIndications:Post-tr aumatic osteoarthritis of left knee,Primary osteoarthritis of right knee 40 mg IAtc Once PRN Procedure 01/22/2025 01/22/2025 Ended Active Problems Problem Noted Date Diagnosed Date Acute bilateral low back pain with bilateral sci atica 01/02/2025 Assessment & Plan (01/02/2025 5:46 PM EST): Ms. Phillips describes increasing issues with her lower back and legs. The lumbar CT from [facility] show degenerative disc disease but not stenosis. Her description of paresthesias and leg shaking raise concerns for stenosis. Her workup at the [facility] ER did not correlate with cauda equina syndrome. She is now awaiting a lumbar spine MRI at [place]. I be happy to review that once [...] this, is currently seeing 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 [place] at [facility], had injection in the right lower rib, [...] Encounters Date Type Department Care Team Description 02/06/2025 8:30 AM EDT Office Visit Orthopedic Surgery - [place] [address] [place] [phone] Nichelle Archibald PA 02/05/2025 10:22 AM EDT - 02/05/2025 11:59 PM EDT [facility] [address] [place] [phone] Encounter for screening mammogram for malignant neoplasm of breast Discharge Disposition: Home or Self Care 02/04/2025 7:42 AM EDT Hospital Encounter [facility] Pain Management [address] [place] [address] Tutu Trivedi MD Radiculopathy, lumbar region 02/04/2025 6:58 AM EDT - 02/04/2025 11:59 PM EDT Hospital Encounter [facility] Xray [address] [place] [address] Pain Discharge Disposition: Home or Self Care 01/24/2025 7:28 AM EDT - 01/24/2025 11:59 PM EDT Hospital Encounter [facility] Ultrasound [address] [place] [address] Cervicalgia Discharge Disposition: Home or Self Care 01/24/2025 7:27 AM EDT - 01/24/2025 11:59 PM EDT Hospital Encounter [facility] CT Scan [address] [place] [address] Polyp of nasal cavity; Deviated nasal septum Discharge Disposition: Home or Self Care 01/22/2025 8:00 AM EDT Office Visit [facility] [place] [address] [phone] Von Mcclure MD Follow-up exam (Primary Dx); Fibromyalgia; Post-traumatic osteoarthritis of left knee; Primary osteoarthritis of right knee; Rheumatoid arthritis involving multiple sites with positive rheumatoid factor ([facility]) 01/21/2025 7:59 AM EDT - 01/21/2025 11:59 PM EDT Hospital Encounter [facility] Pain Management [address] [place] [address] Tutu Trivedi MD Radiculopathy, cervical region Discharge Disposition: Home or Self Care 01/16/2025 8:31 AM EDT - 01/16/2025 11:50 AM EDT Emergency [facility] Emergency [address] [place] [address] Stephanie Nina DO Generalized abdominal pain (Primary Dx) Discharge Disposition: Home or Self Care 01/08/2025 9:00 AM EST Consult Orthopedic Surgery [facility] 175 [facility] [address] [place] [address] Nichelle Archibald PA Arthritis of right shoulder region (Primary Dx); Pain in unspecified shoulder; Calcific tendinitis of both shoulders 01/08/2025 Telephone [facility] [address] [phone] Peggy Leon MD Advice Only (Epidural opinion) 01/03/2025 Telephone Neurosurgery [address] [phone] [place] 12/27/2024 3:00 PM EST Office Visit Neurosurgery [address] [phone] Peggy Leon MD Cervical spondylosis (Primary Dx); Acute bilateral low back pain with bilateral sciatica 12/26/2024 8:11 AM EST - 12/26/2024 11:59 PM EST Hospital [facility] Xray [address] [place] [address] Dysphagia, unspecified Discharge Disposition: Home or Self Care 12/16/2024 Telephone [facility] [address] [phone] [place] 12/14/2024 2:01 PM EST - 12/14/2024 9:20 PM EST Emergency [facility] Emergency [address] [place] [address] Acute bilateral low back pain, unspecified whether sciatica present (Primary Dx); Tingling in extremities Discharge Disposition: Home or Self Care 12/05/2024 2:30 PM EST - 12/05/2024 9:[address] [facility] Emergency [address] [place] [address] Pain of right hip (Primary Dx) Discharge Disposition: Home or Self Care 11/27/2024 Telephone Orthopedic Surgery [facility] [address] 175 [facility] [address] [place] [address] Nichelle Archibald PA Arm Pain 11/20/2024 8:40 AM EST [facility] [address] [phone] Rajan Sanders, TL Slipped rib syndrome (Primary Dx); Right flank pain; Globus sensation; Epigastric pain; Passage of loose stools 11/20/2024 Telephone Gastroenterology [facility] 175 [facility] [address] [phone] Rajan Sanders PA 11/20/2024 [facility] [address] [phone] Rajan Sanders PA Medication Problem 11/20/2024 Telephone Gastroenterology [facility] [address] [phone] Rajan Sanders PA 11/20/2024 Telephone Gastroenterology [facility] 175 [facility] [address] [phone] Rajan Sanders PA Prior Authorization 11/19/2024 Telephone Neurosurgery [facility] [address] [phone] Vanesa Lebron PA 11/18/2024 12:22 PM EST - 11/18/2024 11:59 PM EST Hospital Encounter [facility] Neurodiagnostic [address] [place] [phone] Paresthesias in right hand; Neck pain Discharge Disposition: Home or Self Care 11/18/2024 12:22 PM EST - 11/18/2024 11:59 PM EST Hospital Encounter [facility] Xray [address] [place] [phone] Chest pain, unspecified; Pain in right arm; Paresthesia of skin Discharge Disposition: Home or Self Care 11/18/2024 Telephone Orthopedic Surgery [facility] [address] [phone] Nichelle Archibald PA 11/11/2024 10:45 AM EST Office Visit [facility]opedic Surgery - [place] [address] [facility] [address] [place] [address] Nichelle Archibald PA Pain in both upper extremities (Primary Dx) from Last 3 Months Immunizations Name Administration Dates Next Due Hepatitis B (Demckli-I-Wgfgf , Recombivax HB-Adult) 19yo and older 02/21/2022,01/17/2022 Influenza Quadravalent, MDCK , 0.5ml, preservative free (Flucelvax) 6mo and older 07/28/2023 Influenza trivalent, with preservative (Fluzone; Afluria) 6mo and older 09/19/2022,08/02/2021,09/23/2020,2019 PPD Test 06/01/2015 WebPay (ages 12 & older) ENMANUEL S-CoV-2 COVID-19, mRNA, LNP-S, trey-sucrose, preservative free 02/02/2022 Pfizer SARS-CoV-2 COVID-19, mRNA, LNP-S, preservative free 07/05/2021,06/24/2021 Tdap Tetanus diptheria acell ular pertussis (Boostrix; Adacel) 7yo and older 01/09/2019,06/01/2015 Surgical History Surgery Date Site/Laterality Comments EYE SURGERY 1974 ORTHOPEDIC SURGERY 1996 Left ACL OTHER SURGICAL HISTORY 12/2017 Dr. Lozano HERNIA REPAIR 07/28/2018 Laparoscopic repair of an incarcerated incisional hernia; Dr. Keenan BREAST BIOPSY 2016 Left b9 fibrous tissue BREAST SURGERY 2016 Left b9 fibrous tissue CARPAL TUNNEL RELEASE 01/20/2020 Right PROCEDURE: [place] NEUROPLASTY &/TRANSPOS MEDIAN NRV CARPAL TUNNE COLONOSCOPY OTHER SURGICAL HISTORY 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 [facility] WRIST SURGERY 11/06/2021 - 11/05/2022 Left scapholunate stablization Medical History Medical History Date Comments Anxiety [...] Orientation Straight 01/23/2025 10 :44 AM EDT Obstetrics History Para Term AB IAB SAB Ectopic Multiple Livin g Live Births 2 Last Filed Vital Signs Vital Sign Reading Time Taken Comments Blood Pressure 106/68 02/04/2025 8:51 AM EDT Pulse 66 02/04/2025 8:51 AM EDT Temperature 36.4 ??C (97.5 ??F) 02/04/2025 8:51 AM ED T Respiratory Rate 16 02/04/2025 8:51 AM EDT Oxygen Saturation 100% 02/04/2025 8:51 AM EDT Inhaled Oxygen Concentration - - Weight 74.8 kg (165 lb) 02/06/2025 8:35 AM EDT Height 162.6 cm (5' 4 ) 02/06/2025 8:35 AM EDT Body Mass Index 28.32 02/06/2025 8:35 AM EDT Plan of Treatment Upcoming Encounters Date Type Department Care Team (Late st Contact Info) Description 02/08/2025 12:30 PM EDT Appointment [facility] Ultrasound [address] [place] [phone] 04/10/2025 11:00 AM EDT Telemedicine [facility] [place] [address] [place] [address] Mary Manzanares MD [address] [place] [address] Health Maintenance Due Date Last Done Comments Zoster Vaccines (1 of 2) 2017 Hepatitis B Vaccines (3 of 3 - 19+ 3-dose series) 07/20/2022 02/21/2022, 01/17/2022 Colorectal Cancer Screening: Stool Based Tests (FOBT/FIT) 10/09/2022 Depression Screening 10/09/2022 Social Influencers of Health Screening 10/09/2022 COVID-19 Vaccine ( season) 2024 02/02/2022, 07/05/2021, 06/24/2021, Additional history exists Breast Cancer Screening 02/05/2027 02/06/20, 06/05/2023, 02/27/2019, Additional history exists Cervical Cancer Screening: HPV 07/20/2028 07/20/2023 DTaP,Tdap,and [...] screening mammogram for malignant neoplasm of breast XR FLUORO UP TO 1 HOUR Routine 02/04/2025 8:55 AM EDT Pain US HEAD NECK SOFT TISSUE STAT 01/24/2025 7:[address] SINUSES WO CONTRAST Routine 01/24/2025 7:36 AM EDT Polyp of nasal cavity Deviated nasal septum [place] ARTHROCENTESIS/ASPIR ATION/INJECTION MAJOR JOINT/BURSA W/O U/S GUIDANCE Routine 01/22/2025 8:00 AM EDT Post-traumatic osteoarthritis of left knee Primary osteoarthritis of right knee XR KNEE 4+ VIEWS BILAT Routine 01/22/2025 7:59 AM EDT Follow-up exam Post-traumatic osteoarthritis of left knee Primary osteoarthritis of right knee INMAN URINE CULTURE TUBE STAT 01/16/2025 11:08 [...] Pain in right arm Paresthesia of skin LIPID PANEL WITH REFLEX TO DIRECT LDL Routine 10/28/2024 2:36 PM EST Atrophic arthritis (CMS/HCC) Routine general medical examination at a health care facility Screening for lipoid disorders Screening for diabetes mellitus Screening for thyroid disorder Avitaminosis D HEPATITIS C SCREENING Routine 05/20/2024 HIV SCREENING Routine 05/20/2024 COLONOSCOPY Routine 08/15/2023 HPV Routine 07/20/2023 from Last 3 Months or Most Recently Relevant to Health Maintenance Results * MG Mammo Digital Screening w Sg bilat (02/05/2025 10:40 AM EDT) Anatomical Region Laterality Modality Breast Bilateral Mammography 02/06/2025 9:43 AM EDT Impressions 02/06/2025 9:45 AM EDT No evidence of breast malignancy. BI-RADS CATEGORY: 1 - NEGATIVE RECOMMENDATION: Screening bilateral mammogram is recommended in 1 year. Mammo Location: [facility], [address] [place] [address], [id number], . -------- FINAL REPORT -------- Dictated By: Stefani Zamora Dictated Date: 02/06/2025 09:43 ET Assigned Physician: Stefani Zamora Reviewed and Electronically Signed By: Stefain Zamora Signed Date: 02/06/2025 09:45 ET Workstation ID: [id number] Transcribed By: Self Edit Transcribed Date: 02/06/2025 [...] year. Mammo Location: [facility], [address] [place] [address], [address], . -------- FINAL REPORT -------- Dictated By: Stefani Zamora Dictated Date: 02/06/2025 09:43 ET Assigned Physician: Stefani Zamora Reviewed and Electronically Signed By: Stefani Zamora Signed Date: 02/06/2025 09:45 ET Workstation ID: [id number] Transcribed By: Self Edit Transcribed Date: 02/06/2025 09:43 ET Araceli BOOTHE IMG BI PROCEDURES Final Result * XR Fluoro Up To 1 Hour [...] Signed Date: 02/04/2025 12:53 ET Workstation ID: [id number] Transcribed By: Self Edit Transcribed Date: 02/04/2025 [...] Signed Date: 02/04/2025 12:53 ET Workstation ID: [id number] Transcribed By: Self Edit Transcribed Date: 02/04/2025 12:51 ET us Tutu Trivedi MD IMG FLUOROSCOPY PROCEDURES Fin al Result * US Head Neck Soft Tissue (01/24/2025 7:49 AM EDT) Anatomical Region Laterality Modality Head and Neck Ultrasound 01/24/2025 7:55 AM EDT Impressions 01/24/2025 8:00 AM EDT The thyroid appears within normal limits. In the area of palpable concern there is an oval hypoechoic mass with circumscribed margins measuring 0.5 cm in short axis. This could represent a lymph node but is not entirely specific. This should be managed on a clinical basis -------- FINAL REPORT -------- Dictated By: Alexey Morton Dictated Date: 01/24/2025 07:55 ET Assigned Physician: Alexey Morton Reviewed and Electronically Signed By: Alexey Morton Signed Date: 01/24/2025 08:00 ET Workstation ID: [id number] Transcribed By: Self Edit Transcribed Date: 01/24/2025 07:55 ET Narrative 01/24/2025 8:00 AM EDT EXAMINATION: US , RIGHT NECK CLINICAL INFORMATION: Pain. Symptoms for 6 months. COMPARISON: None. TECHNIQUE: High-frequency linear transducer examination with attention to the area of clinical concern Ultrasound of the thyroid was performed with supplementary color mapping. Targeted high fragility linear transducer examination with attention to an area of palpable concern in the right neck, level 2 FINDINGS: QUALITY: Adequate Right neck, area of palpable concern There is a circumscribed homogeneous hypoechoic oval mass with long axis parallel. Mild posterior enhancement. There is no definite echogenic fatty hilum. There is no calcification. No suspicious color signal 01/24/25-1.3 cm Although nonspecific this could represent a lymph node. This should be managed on the basis of the clinical exam, history and any pertinent laboratory values The right lobe of the thyroid measures: 4.7 x 1.8 x 1.9 cm Previous measurement: No previous available Right lobe contour: The right lobe contour is smooth. Right lobe echogenicity: Homogeneous Right lobe vascularity: Normal The left lobe of the thyroid measures: 4.0 x 1.4 x 1.9 cm Previous measurement: No previous available Left lobe contour: The left lobe contour is smooth. Left lobe echogenicity: Homogeneous Left lobe vascularity: Normal Isthmus measures (AP): 0.5 cm Previous measurement: No previous available Isthmus contour: The isthmic contour is smooth. Isthmus echogenicity: Homogeneous Isthmus vascularity: Normal Masses: No suspicious masses There are tiny small probable cysts in each lobe measuring less than 0.5 cm that did not require any specific imaging follow-up OTHER: Extrathyroidal extension: ??None Regional lymph nodes: ??No other enlarged lymph nodes demonstrated Procedure Note Alexey Morton MD - 01/24/2025 EXAMINATION: US , RIGHT NECK CLINICAL INFORMATION: Pain. Symptoms for 6 months. COMPARISON: None. TECHNIQUE: High-frequency linear transducer examination with attention to the area ofclinical concern Ultrasound of the thyroid was performed with supplementary colormapping. Targeted high fragility linear transducer examination with attention to anarea of palpable concern in the right neck, level 2 FINDINGS: QUALITY: Adequate Right neck, area of palpable concern There is a circumscribed homogeneous hypoechoic oval mass with long axisparallel. Mild posterior enhancement. There is no definite echogenic fattyhilum. There is no calcification. No suspicious color signal 01/24/25-1.3 cm Although nonspecific this could represent a lymph node. This should be managed on the basis of the clinical exam, history and anypertinent laboratory values The right lobe of the thyroid measures: 4.7 x 1.8 x 1.9 cm Previous measurement: No previous available Right lobe contour: The right lobe contour is smooth. Right lobe echogenicity: Homogeneous Right lobe vascularity: Normal The left lobe of the thyroid measures: 4.0 x 1.4 x 1.9 cm Previous measurement: No previous available Left lobe contour: The left lobe contour is smooth. Left lobe echogenicity: Homogeneous Left lobe vascularity: Normal Isthmus measures (AP): 0.5 cm Previous measurement: No previous available Isthmus contour: The isthmic contour is smooth. Isthmus echogenicity: Homogeneous Isthmus vascularity: Normal Masses: No suspicious masses There are tiny small probable cysts in each lobe measuring less than 0.5cm that did not require any specific imaging follow-up OTHER: Extrathyroidal extension: None Regional lymph nodes: No other enlarged lymph nodes demonstrated IMPRESSION: The thyroid appears within normal limits. In the area of palpable concern there is an oval hypoechoic mass withcircumscribed margins measuring 0.5 cm in short axis. This could representa lymph node but is not entirely specific. This should be managed on aclinical basis -------- FINAL REPORT -------- Dictated By: Alexey Morton Dictated Date: 01/24/2025 07:55 ET Assigned Physician: Alexey Morton Reviewed and Electronically Signed By: Alexey Morton Signed Date: 01/24/2025 08:00 ET Workstation ID: [id number] Transcribed By: Self Edit Transcribed Date: 01/24/2025 07:55 ET us Irais BOOTHE IMG US PROCEDURES Final R esult * CT Sinuses wo Contrast (01/24/2025 7:36 AM EDT) Anatomical Region Laterality Modality Head and Neck Computed Tomogra phy 01/24/2025 8:15 AM EDT Impressions 01/24/2025 8:42 AM EDT 1. ??Slight leftward deviation of the inferior nasal septum. 2. ??Very small mucous retention cyst in the right posterior sphenoid sinus. -------- FINAL REPORT -------- Dictated By: Hever Hutton Dictated Date: 01/24/2025 08:15 ET Assigned Physician: Hever Hutton Reviewed and Electronically Signed By: Hever Hutton Signed Date: 01/24/2025 08:42 ET Workstation ID: [id number] Transcribed By: Self Edit Transcribed Date: 01/24/2025 08:15 ET Narrative 01/24/2025 8:42 AM EDT PROCEDURE: Noncontrast CT of the paranasal sinuses. HISTORY: deviated septum, sinonasal polyp. TECHNIQUE: CT of the paranasal sinuses without intravenous contrast, with coronal and sagittal reformats. COMPARISON: None. Dose length product: ??250 mGy-cm. FINDINGS: The maxillary antra are clear. ??Infundibula are patent. Slight leftward bowing of the lower nasal septum. ??No cyrus bullosa. The frontal sinuses and frontoethmoidal recesses are clear. The ethmoid air cells are clear. There is a small mucous retention cyst in the right posterior sphenoid sinus. ??Sphenoids are otherwise clear. The mastoids and middle ear spaces are clear. ??Skull base foramina are normal. Trace atherosclerotic calcification of the carotid siphons. ??Visualized intracranial structures are otherwise unremarkable. Orbits are normal. Visualized soft tissues of the skull base are normal. Procedure Note Hever Hutton MD - 01/24/2025 PROCEDURE: Noncontrast CT of the paranasal sinuses. HISTORY: deviated septum, sinonasal polyp. TECHNIQUE: CT of the paranasal sinuses without intravenous contrast, withcoronal and sagittal reformats. COMPARISON: None. Dose length product: 250 mGy-cm. FINDINGS: The maxillary antra are clear. Infundibula are patent. Slight leftward bowing of the lower nasal septum. No cyrus bullosa. The frontal sinuses and frontoethmoidal recesses are clear. The ethmoid air cells are clear. There is a small mucous retention cyst in the right posterior sphenoidsinus. Sphenoids are otherwise clear. The mastoids and middle ear spaces are clear. Skull base foramina arenormal. Trace atherosclerotic calcification of the carotid siphons. Visualizedintracranial structures are otherwise unremarkable. Orbits are normal. Visualized soft tissues of the skull base are normal. IMPRESSION: 1. Slight leftward deviation of the inferior nasal septum. 2. Very small mucous retention cyst in the right posterior sphenoidsinus. -------- FINAL REPORT -------- Dictated By: Hever Hutton Dictated Date: 01/24/2025 08:15 ET Assigned Physician: Hever Hutton Reviewed and Electronically Signed By: Hever Hutton Signed Date: 01/24/2025 08:42 ET Workstation ID: [id number] Transcribed By: Self Edit Transcribed Date: 01/24/2025 08:15 ET us Js Genaro Mahoney MD IMG CT PROCEDURES Final Res ult * NJ ARTHROCENTESIS/ASPIRATION/INJECTION MAJOR JOINT/BURSA W/O U/S GUIDANCE (01/22/2025 8:00 AM EDT) Narrative Von Mcclure MD - 01/22/2025 8:00 AM EDT Von Mcclure MD ? 01/22/2025 ??8:38 AM L Inj/Asp: bilateral knee Indications: pain Details: 22 G needle, anterolateral approach Medications (Right): 2 mL lidocaine 1 %; 40 mg triamcinolone acetonide 40 mg/mL Medications (Left): 2 mL lidocaine 1 %; 40 mg triamcinolone acetonide 40 mg/mL Procedure: After discussion of risks and benefits, informed consent was verbally obtained for BILATERAL knee corticosteroid injections. ??The lateral arthroscopic soft spots were identified and marked. ??These were sterilized with chlorhexidine and alcohol. ??I then injected 2ml of 1% plain Lidocaine, 2ml 0.25% plain bupivacaine, and 40 mg of Kenalog intra-articularly without resistance into each knee. ??Hemostasis was achieved and sterile Band-Aids were applied. ??The patient tolerated the procedures well. ??Postinjection risks and instructions were reviewed including activity modification, cold therapy, potential NSAIDs use, effects on blood sugar levels, and monitoring for signs of complications. 4 Informed Consent: ??Laterality: ??Bilateral ??Relevant images/test results available and reviewed: yes ?Health status cleared: ??Yes ??Procedure/treatment, purpose, treatment alternatives, risks/potential complications and benefits explained: yes ?Patient questions answered: yes ?Patient agrees, verbalizes understanding, and wants to proceed: yes ?Consent given by: ??Patient ??Informed consent discussion completed by Physician/MODESTA with patient: ?? Verbal ??Pre-procedure timeout performed: yes ?? us Von Mcclure MD IN CLINIC/BEDSIDE ORD ERABLES Final Result * XR Knee 4+ Views bilat (01/22/2025 7:59 AM EDT) Anatomical Region Laterality Modality Lower Extremities, Knee Bilateral Computed Radiography Narrative 01/24/2025 1:09 PM EDT 4 views bilateral knees obtained today including AP, Gomez, lateral, sunrise were reviewed. Right knee x-rays show mild degenerative change involving medial, lateral, patellofemoral compartments with minimal joint space narrowing, small marginal space, subchondral sclerosis. ??No fracture, malalignment, or obvious bony lesions. ??No significant effusion. ??Fairly neutral alignment. Left knee x-rays show moderate degenerative changes involving the lateral and patellofemoral compartment including partial joint space narrowing, small marginal space, subchondral sclerosis. ??Mild degenerative changes medial compartment. ??Evidence of prior tibial and femoral tunnels. ?? Superolateral femoral button. ??Small loose body within the intercondylar notch. ??No seeming effusion. ??Neutral alignment. us Von Mcclure MD IMG XR PROCEDURES Fin al Result * (ABNORMAL) Urinalysis with reflex microscopic and culture (01/16/2025 11:08 AM EDT) Only the most recent of2 resultswithin the time period is included. Specific [place] Urine 1.034(H) 1.003 - 1.030 LAB URINALYSIS - AUTOMATED METHOD 01/16/2025 12:[address] [facility] pH, Urine 6.5 5.0 - 8.0 pH LAB URINALYSIS - AUTOMATED METHOD 01/16/2025 12:[address] [facility] Leukocytes, Urine Negative Negative LAB URINALYSIS - AUTOMATED METHOD 01/16/2025 12:[address] [facility] Nitrite, Urine Negative Negative LAB URINALYSIS - AUTOMATED METHOD 01/16/2025 12:[address] [facility] Protein, Urine Trace <=Trace mg/dL LAB URINALYSIS - AUTOMATED METHOD 01/16/2025 12:[address] [facility] Glucose, Urine Negative Negative mg/dL LAB URINALYSIS - AUTOMATED METHOD 01/16/2025 12:[address] [facility] Ketones, Urine Negative Negative mg/dL LAB URINALYSIS - AUTOMATED METHOD 01/16/2025 12:[address] [facility] Urobilinogen, Urine 0.2 0.2 - 1.0 mg/dL LAB URINALYSIS - AUTOMATED METHOD 01/16/2025 12:[address] [facility] Bilirubin, Urine Negative Negative LAB URINALYSIS - AUTOMATED METHOD 01/16/2025 12:[address] [facility] Blood, Urine Negative Negative LAB URINALYSIS - AUTOMATED METHOD 01/16/2025 12:[address] [facility] Urine Urine specimen obtained by clean catch procedure / Unknown Non-blood Collection / Unknown 01/16/2025 11:08 AM EDT 01/16/2025 12:11 PM EDT us Stephanie Nina DO LAB URINE ORDERABLES Nataliia l Result [facility] [address] [place] [address], [place] [phone] * [place] urine culture tube (01/16/2025 11:08 AM EDT) Only the most recent of2 resultswithin the time period is included. Extra Tube Hold for add-ons. 01/16/2025 2:01 PM EDT [facility] Comment:Auto resulted. Urine Urine specimen obtained by clean catch procedure / Unknown Non-blood Collection / Unknown 01/16/2025 11:08 AM EDT 01/16/2025 12:11 PM EDT Stephanie Austen Erasmo Maico DO LAB URINE ORDERABLES Nataliia l Result [facility] [address] [place] [address], [place] [phone] * CT Abdomen Pelvis w Contrast (01/16/2025 [...] Signed Date: 01/16/2025 10:48 ET Workstation ID: [id number] Transcribed By: Self Edit Transcribed Date: 01/16/2025 [...] Signed Date: 01/16/2025 10:48 ET Workstation ID: [id number] Transcribed By: Self Edit Transcribed Date: 01/16/2025 10:43 ET us Stephanie Nina DO IMG CT PROCEDURES Final R esult * Thyroid stimulating hormone with reflex to free t4 and free t3 (TSH Reflex) (01/16/2025 7:18 AM EDT) TSH 2.08 0.40 - 4.00 mcIU/mL LAB CHEMISTRY METHOD 01/16/2025 10:37 AM EDT [facility] Blood Venous blood specimen / Unknown Venipuncture / Unknown 01/16/2025 7:18 AM EDT 01/16/2025 7:55 AM EDT us Stephanie Nina DO LAB BLOOD ORDERABLES Nataliia l Result [facility] [address] [place] [address], [place] [phone] * (ABNORMAL) CBC auto differential (01/16/2025 7:18 AM EDT) Only the most recent of3 resultswithin the time period is included. WBC 7.7 4.8 - 10.8 K/[facility] LAB HEMETOLOGY METHOD 01/16/2025 8:02 AM EDT [facility] RBC 4.40 3.80 - 4.80 M/mcL LAB HEMETOLOGY METHOD 01/16/2025 8:[address] [facility] Hemoglobin 14.3 11.5 - 16.0 g/dL LAB HEMETOLOGY METHOD 01/16/2025 8:[address] [facility] Hematocrit 41.5 35.0 - 47.0 % LAB HEMETOLOGY METHOD 01/16/2025 8:[address] [facility] MCV 93.7 79.0 - 98.0 FL LAB HEMETOLOGY METHOD 01/16/2025 8:[address] [facility] MCH 32.3(H) 27.0 - 32.0 pcg LAB HEMETOLOGY METHOD 01/16/2025 8:[address] [facility] MCHC 34.5 32.0 - 37.0 g/dL LAB HEMETOLOGY METHOD 01/16/2025 8:[address] [facility] RDW 12.9 11.0 - 15.0 % LAB HEMETOLOGY METHOD 01/16/2025 8:[address] [facility] Platelets 310 130 - 400 K/mcL LAB HEMETOLOGY METHOD 01/16/2025 8:[address] [facility] MPV 9.8 7.0 - 11.0 FL LAB HEMETOLOGY METHOD 01/16/2025 8:[address] [facility] NRBC 0.0 <1.0 % LAB HEMETOLOGY METHOD 01/16/2025 8:[address] [facility] NRBC Absolute 0.00 <0.10 K/mcL LAB HEMETOLOGY METHOD 01/16/2025 8:[address] [facility] Neutrophils Relative 48.2 % LAB HEMETOLOGY METHOD 01/16/2025 8:[address] [facility] Lymphocytes Relative 36.7 % LAB HEMETOLOGY METHOD 01/16/2025 8:[address] [facility] Monocytes Relative 9.1 % LAB HEMETOLOGY METHOD 01/16/2025 8:[address] [facility] Eosinophils Relative 5.2 % LAB HEMETOLOGY METHOD 01/16/2025 8:[address] [facility] Basophils Relative 0.5 % LAB HEMETOLOGY METHOD 01/16/2025 8:[address] [facility] Immature Granulocytes Relative 0.3 % LAB HEMETOLOGY METHOD 01/16/2025 8:[address] [facility] Neutrophils Absolute 3.73 1.50 - 7.00 K/mcL LAB HEMETOLOGY METHOD 01/16/2025 8:[address] [facility] Lymphocytes Absolute 2.83 1.00 - 5.00 K/mcL LAB HEMETOLOGY METHOD 01/16/2025 8:[address] [facility] Monocytes Absolute 0.70 0.20 - 1.00 K/mcL LAB HEMETOLOGY METHOD 01/16/2025 8:[address] [facility] Eosinophils Absolute 0.40 0.00 - 0.50 K/mcL LAB HEMETOLOGY METHOD 01/16/2025 8:[address] [facility] Basophils Absolute 0.04 0.00 - 0.20 K/mcL LAB HEMETOLOGY METHOD 01/16/2025 8:[address] [facility] Immature Granulocytes Absolute 0.02 0.00 - 0.03 K/mcL LAB HEMETOLOGY METHOD 01/16/2025 8:[address] [facility] Blood Venous blood specimen / Unknown Venipuncture / Unknown 01/16/2025 7:18 AM EDT 01/16/2025 7:55 AM EDT us Roberto Carlos Marie MD LAB BLOOD ORDERABLES Final Resu lt Performing Organization Address [facility]/ZIP Co de Phone Number [facility] [address] [place] [address], [place] [phone] * Lipase (01/16/2025 7:18 AM EDT) Pathologist [facility] Lipase 18 13 - 75 unit/L LAB CHEMISTRY METHOD 01/16/2025 8:42 AM EDT [facility] Blood Venous blood specimen / Unknown Venipuncture / Unknown 01/16/2025 7:18 AM EDT 01/16/2025 7:55 AM EDT us Roberto Carlos Marie MD LAB BLOOD ORDERABLES Final Resu lt Performing Organization Address [facility] Co de Phone Number [facility] [address] [place] [address], [place] [phone] * (ABNORMAL) Comprehensive metabolic panel (01/16/2025 7:18 AM EDT) [facility] Sodium 138 133 - 145 mmol/L LAB CHEMISTRY METHOD 01/16/2025 8:[address] [facility] Potassium 4.5 3.5 - 5.5 mmol/L LAB CHEMISTRY METHOD 01/16/2025 8:[address] [facility] Chloride 103 96 - 110 mmol/L LAB CHEMISTRY METHOD 01/16/2025 8:[address] [facility] CO2 29 21 - 32 mmol/L LAB CHEMISTRY METHOD 01/16/2025 8:[address] [facility] Anion Gap 6 3 - 11 LAB CHEMISTRY METHOD 01/16/2025 8:[address] [facility] Glucose 108(H) 70 - 100 mg/dL LAB CHEMISTRY METHOD 01/16/2025 8:[address] [facility] BUN 9 5 - 25 mg/dL LAB CHEMISTRY METHOD 01/16/2025 8:[address] [facility] Creatinine 0.85 0.50 - 1.10 mg/dL LAB CHEMISTRY METHOD 01/16/2025 8:[address] [facility] eGFR 80 >=60 mL/min/1. 73m2 LAB CHEMISTRY METHOD 01/16/2025 8:[address] [facility] Comment:Calculation based on the??Chronic Kidney Disease Epidemiology Collaboration (CKD-EPI) equation refit??without adjustment for race. BUN/Creatinine Ratio 10.6 LAB CHEMISTRY METHOD 01/16/2025 8:[address] [facility] Calcium 9.7 8.5 - 10.5 mg/dL LAB CHEMISTRY METHOD 01/16/2025 8:[address] [facility] AST (SGOT) 18 10 - 42 unit/L LAB CHEMISTRY METHOD 01/16/2025 8:[address] [facility] ALT (SGPT) 22 10 - 60 unit/L LAB CHEMISTRY METHOD 01/16/2025 8:[address] [facility] Alkaline Phosphatase 113 42 - 121 unit/L LAB CHEMISTRY METHOD 01/16/2025 8:[address] [facility] Total Protein 7.5 6.0 - 8.0 g/dL LAB CHEMISTRY METHOD 01/16/2025 8:[address] [facility] Albumin 4.1 3.2 - 5.0 g/dL LAB CHEMISTRY METHOD 01/16/2025 8:[address] [facility] Total Bilirubin 0.5 0.0 - 1.4 mg/dL LAB CHEMISTRY METHOD 01/16/2025 8:[address] [facility] Blood Venous blood specimen / Unknown Venipuncture / Unknown 01/16/2025 7:18 AM EDT 01/16/2025 7:55 AM EDT us Roberto Carlos Marie MD LAB BLOOD ORDERABLES Final Resu lt [facility] [address] [place] [address], [place] [phone] * XR Shoulder 2+ Views bilat (01/08/2025 [...] Signed Date: 12/27/2024 08:28 ET Workstation ID: [id number] Transcribed By: Self Edit Transcribed Date: 12/26/2024 13:36 ET Resident/PA/SURGICAL INSTRUMENT MAKER: Lidia Escamilla Narrative 12/27/2024 8:28 AM EST FINDINGS: Double contrast esophagram performed. COMPARISON: Esophagram March 04, 2022 HISTORY: Patient is a 59-year-old female with history of globus sensation. Epigastric pain. Print Binding Worker radiographs: 1 view chest radiograph demonstrates cardiac [...] female with history of globus sensation.Epigastric pain. Print Binding Worker radiographs: 1 view chest radiograph demonstrates cardiac [...] Signed Date: 12/27/2024 08:28 ET Workstation ID: [id number] Transcribed By: Self Edit Transcribed Date: 12/26/2024 13:36 ET Resident/PA/SURGICAL INSTRUMENT MAKER: Lidia Escamilla [facility] Genaro Mahoney MD IMG FLUOROSCOPY PROCEDURES Final Result [...] Signed Date: 12/15/2024 07:42 ET Workstation ID: [id number] Transcribed By: Self Edit Transcribed Date: 12/15/2024 [...] Signed Date: 12/15/2024 07:42 ET Workstation ID: [id number] Transcribed By: Self Edit Transcribed Date: 12/15/2024 [...] ECG 12 lead (12/14/2024 4:37 PM EST) Pathologist [facility] Ventricular Rate ECG 67 BPM GEMUSE Atrial Rate 67 BPM GEMUSE P-R Interval 162 ms GEMUSE QRS Duration 64 ms GEMUSE Q-T Interval 422 ms GEMUSE QTc 445 ms GEMUSE P Wave [place] 40 degrees GEMUSE R Manor 6 degrees GEMUSE T [place] 26 degrees GEMUSE ECG Interpretation Normal sinus rhythm Nonspecific T wave abnormality Abnormal ECG When compared with ECG of 26-OCT-2024 07:05, No significant change was found Confirmed by Lydia JEFFERSON, TAMELA ([id number]) on 12/14/2024 5:33:44 PM GEMUSE 12/14/2024 4:37 PM EST 12/14/2024 5:33 PM EST Pepe Mar DO ECG ORDERABLES Final Resul t GEMUSE * Respiratory virus panel molecular study (12/14/2024 4:28 PM EST) Only the most recent of2 resultswithin the time period is included. Pathologist [facility] Adenovirus Detection by PCR Not Detected Not Detected LAB MICROBIOLOGY METHOD 12/14/2024 5:56 PM [facility] Influenza A PCR Not Detected Not Detected LAB MICROBIOLOGY METHOD 12/14/2024 5:56 PM [facility] Influenza B PCR Not Detected Not Detected LAB MICROBIOLOGY METHOD 12/14/2024 5:56 PM [facility] Coronavirus 229E Not Detected Not Detected LAB MICROBIOLOGY METHOD 12/14/2024 5:56 PM [facility] Coronavirus HKU1 Not Detected Not Detected LAB MICROBIOLOGY METHOD 12/14/2024 5:56 PM [facility] Coronavirus OC43 Not Detected Not Detected LAB MICROBIOLOGY METHOD 12/14/2024 5:56 PM [facility] Coronavirus NL63 Not Detected Not Detected LAB MICROBIOLOGY METHOD 12/14/2024 5:56 PM [facility] Parainfluenza Virus 1 Not Detected Not Detected LAB MICROBIOLOGY METHOD 12/14/2024 5:56 PM [facility] Parainfluenza Virus 2 Not Detected Not Detected LAB MICROBIOLOGY METHOD 12/14/2024 5:56 PM [facility] Parainfluenza Virus 3 Not Detected Not Detected LAB MICROBIOLOGY METHOD 12/14/2024 5:56 PM [facility] Parainfluenza Virus 4 Not Detected Not Detected LAB MICROBIOLOGY METHOD 12/14/2024 5:56 PM [facility] RSV PCR Not Detected Not Detected LAB MICROBIOLOGY METHOD 12/14/2024 5:56 PM [facility] Human Metapneumovirus A and B Not Detected Not Detected LAB MICROBIOLOGY METHOD 12/14/2024 5:56 PM [facility] Rhinovirus/Entero virus Not Detected Not Detected LAB MICROBIOLOGY METHOD 12/14/2024 5:56 PM [facility] Bordetella pertussis Not Detected Not Detected LAB MICROBIOLOGY METHOD 12/14/2024 5:56 PM [facility] Bordetella parapertussis Not Detected Not Detected LAB MICROBIOLOGY METHOD 12/14/2024 5:56 PM EST [facility] Mycoplasma pneumo by PCR Not Detected Not Detected LAB MICROBIOLOGY METHOD 12/14/2024 5:56 PM EST [facility] Chlamydia pneumoniae Not Detected Not Detected LAB MICROBIOLOGY METHOD 12/14/2024 5:56 PM EST [facility] SARS COV-2 Not Detected Not Detected LAB MICROBIOLOGY METHOD 12/14/2024 5:56 PM EST [facility] Swab Both anterior nares / Unknown Non-blood Collection / Unknown 12/14/2024 4:28 PM EST 12/14/2024 4:34 PM EST Narrative [facility] - 12/14/2024 5:56 PM EST Testing was performed using the FRS Respiratory Pathogen PCR Assay. All results must [...] are below the limit of detection. Dwight Barahona [place] LAB MICROBIOLOGY - GENERAL ORDER KAILASH Final Result Performing Organization Address [facility]/ZIP Co de Phone Number [facility] [address] [place] [address], * Phosphorus (12/14/2024 12:01 PM EST) Phosphorus 3.5 2.5 - 4.5 mg/dL LAB CHEMISTRY METHOD 12/14/2024 4:31 PM EST [facility] Blood Venous blood specimen / Unknown Venipuncture / Unknown 12/14/2024 12:01 PM EST 12/14/2024 12:24 PM EST [facility] LAB BLOOD ORDERABLES Final Resul t [facility] [address] [place] [address], * Magnesium (12/14/2024 12:01 PM EST) Only the most recent of2 resultswithin the time period is included. Magnesium 2.0 1.9 - 2.6 mg/dL LAB CHEMISTRY METHOD 12/14/2024 12:51 PM [facility] Blood Venous blood specimen / Unknown Venipuncture / Unknown 12/14/2024 12:01 PM EST 12/14/2024 12:24 PM EST Pepe Mar DO LAB BLOOD ORDERABLES Final Result Performing Organization Address [facility] Co de Phone Number [facility] [address] [place] [address], * (ABNORMAL) Basic metabolic panel (12/14/2024 12:01 PM EST) Only the most recent of2 resultswithin the time period is included. Sodium 138 133 - 145 mmol/L LAB CHEMISTRY METHOD 12/14/2024 12:59 PM [facility] Potassium 4.5 3.5 - 5.5 mmol/L LAB CHEMISTRY METHOD 12/14/2024 12:59 PM [facility] Chloride 106 96 - 110 mmol/L LAB CHEMISTRY METHOD 12/14/2024 12:59 PM [facility] CO2 28 21 - 32 mmol/L LAB CHEMISTRY METHOD 12/14/2024 12:59 PM [facility] Anion Gap 4 3 - 11 LAB CHEMISTRY METHOD 12/14/2024 12:59 PM [facility] Glucose 119(H) 70 - 100 mg/dL LAB CHEMISTRY METHOD 12/14/2024 12:59 PM [facility] BUN 13 5 - 25 mg/dL LAB CHEMISTRY METHOD 12/14/2024 12:59 PM EST [facility] Creatinine 0.82 0.50 - 1.10 mg/dL LAB CHEMISTRY METHOD 12/14/2024 12:59 PM EST [facility] eGFR 84 >=60 mL/min/1. 73m2 LAB CHEMISTRY METHOD 12/14/2024 12:59 PM EST [facility] Comment:Calculation based on the??Chronic Kidney Disease Epidemiology Collaboration (CKD-EPI) equation refit??without adjustment for race. BUN/Creatinine Ratio 15.9 LAB CHEMISTRY METHOD 12/14/2024 12:59 PM [facility] Calcium 9.6 8.5 - 10.5 mg/dL LAB CHEMISTRY METHOD 12/14/2024 12:59 PM [facility] Blood Venous blood specimen / Unknown Venipuncture / Unknown 12/14/2024 12:01 PM EST 12/14/2024 12:24 PM EST Pepe Mar DO LAB BLOOD ORDERABLES Final Result [facility] [address] [place] [address], * ECG-Annotated (12/14/2024) us Provider Onbase MD [...] Borrelia burgdorferi antibody (12/05/2024 1:30 PM EST) Pathologist [facility] Lyme Ab Negative Negative LAB CHEMISTRY METHOD 12/06/2024 9:08 AM EST [facility] Comment: No laboratory evidence of [...] ORDERABLES Final Resu lt Performing Organization Address [facility]/ZIP Co de Phone Number [facility] [address] [place] [address], * Sedimentation rate, automated (12/05/2024 1:30 PM EST) Pathologist [facility] Sed Rate 20 0 - 30 mm/hr LAB HEMETOLOGY METHOD 12/05/2024 1:59 PM EST [facility] Blood Venous blood specimen / Unknown Venipuncture / Unknown 12/05/2024 1:30 PM EST 12/05/2024 1:39 PM EST us Jewel Hernández MD LAB BLOOD ORDERABLES Final Resu lt Performing Organization Address [facility] Co de Phone Number [facility] [address] [place] [address], * C-reactive protein (12/05/2024 1:30 PM EST) [facility] C-Reactive Protein <0.29 <=0.50 mg/dL LAB CHEMISTRY METHOD 12/05/2024 2:05 PM EST [facility] Blood Venous blood specimen / Unknown Venipuncture / Unknown 12/05/2024 1:30 PM EST 12/05/2024 1:39 PM EST us Jewel Hernández MD LAB BLOOD ORDERABLES Final Resu lt Performing Organization Address [facility]/ZIP Co de Phone Number [facility] [address] [place] [address], [place] [phone] * Creatine kinase (12/05/2024 1:30 PM EST) [facility] Total CK 80 22 - 269 unit/L LAB CHEMISTRY METHOD 12/05/2024 2:05 PM EST [facility] Blood Venous blood specimen / Unknown Venipuncture / Unknown 12/05/2024 1:30 PM EST 12/05/2024 1:39 PM EST us Jewel Hernández MD LAB BLOOD ORDERABLES Final Resu lt [facility] [address] [place] [address], [place] [phone] * EMG one limb (11/18/2024 1:17 PM [...] to the prior neck CTA. Telechaka BOOTHE ([id number]) -------- FINAL REPORT -------- Dictated By: Dayami Diehl Dictated Date: 11/19/2024 13:40 ET Assigned Physician: Dayami Diehl Reviewed and Electronically Signed By: Dayami Diehl Signed Date: 11/19/2024 13:45 ET Workstation ID: [id number] Transcribed By: Self Edit Transcribed Date: 11/19/2024 [...] to the prior neck CTA. Telerad TL ([id number]) -------- FINAL REPORT -------- Dictated By: Dayami Diehl Dictated Date: 11/19/2024 13:40 ET Assigned Physician: Dayami Diehl Reviewed and Electronically Signed By: Dayami Diehl Signed Date: 11/19/2024 13:45 ET Workstation ID: [id number] Transcribed By: Self Edit Transcribed Date: 11/19/2024 13:40 ET us Araceli BOOTHE IMG XR PROCEDURES Final Result * Lipid panel with reflex to direct LDL (10/28/2024 2:36 PM EST) Cholesterol 196 0 - 200 mg/dL LAB CHEMISTRY METHOD 10/28/2024 4:17 PM EST [facility] Triglycerides 51 0 - 150 mg/dL LAB CHEMISTRY METHOD 10/28/2024 4:17 PM [facility] HDL 111 >=40 mg/dL LAB CHEMISTRY METHOD 10/28/2024 4:17 PM [facility] LDL Calculated 75 0 - 100 mg/dL LAB CHEMISTRY METHOD 10/28/2024 4:17 PM [facility] VLDL Cholesterol Corby 10.2 mg/dL LAB CHEMISTRY METHOD 10/28/2024 4:17 PM [facility] Non HDL Chol. (LDL+VLDL) 85 <145 mg/dL LAB CHEMISTRY METHOD 10/28/2024 4:17 PM [facility] Chol/HDL Ratio 1.8 0.0 - 4.4 LAB CHEMISTRY METHOD 10/28/2024 4:17 PM [facility] Blood Venous blood specimen / Unknown Venipuncture / Unknown 10/28/2024 2:36 PM EST 10/28/2024 3:06 PM EST Araceli BOOTHE LAB BLOOD ORDERABLES Fin al Result [facility] [address] [place] [address], * HIV Screening (05/20/2024) [facility] HIV Screening abstracted Historical Provider HEALTH MAINTENANCE Final Result * Hepatitis C Screening (05/20/2024) [facility] Hepatitis C Screening abstracted [facility] Provider HEALTH MAINTENANCE Final Result * Colonoscopy (08/15/2023) [facility] Colonoscopy no interpreta tion,abstr acted Anatomical Region Laterality Modality Other us Historical Provider HEALTH MAINTENANCE Final Result * Cervical Cancer Screening: HPV (07/20/2023) Cervical Cancer Screening: HPV no interpreta tion,abstr acted Historical Provider HEALTH MAINTENANCE Final Result from Last 3 Months or Most Recently Relevant to Health Maintenance Insurance [facility] Care Teams Geography Head Relationship Specialty Start Date End Date Araceli Augustin PA [address] [place] [phone] PCP - General 11/20/24
--- OUTSIDE RECORDS SUMMARY | 2025-02-06 10:26 | XMS_ITS | Encounter Summary ---
Author Organization [facility] Address [address] [place] [address] Care Team Providers Care Die Caster Name Role Phone Unavailable Primary Care Provider Unavailabl e Encounter Details Date Type Department Care Team (Late st Contact Info) Description 08/06/2024 8:23 AM EDT Hospital Encounter TH HISTORIC ENCOUNTERS [facility] ONLY Tutu Trivedi MD [address] [place] [address] Social History Tobacco Use Types Packs/Day Years [...] Info) Description 02/08/2025 12:30 PM EDT Appointment [facility] Ultrasound [address] [place] [address] 04/10/2025 11:00 AM EDT Telemedicine [facility] [address] [facility] [address] [place] [address] Mary Manzanares MD [address] [place] [id number] documented as of this encounter Visit Diagnoses Not on filedocumented in this encounter Additional Health Concerns Infection Onset Date Last Indicated Resolved Time Respiratory Rule-Out 12/05/2024 12/05/2024 025 4:51 PM EST Respiratory Rule-Out 12/14/2024 12/14/2024 025 5:56 PM EST COVID-19 Rule-Out 12/14/2024 12/14/2024 12/14/2024 5:56 PM EST documented as of this encounter
--- OUTSIDE RECORDS SUMMARY | 2025-02-06 10:26 | XMS_ITS | Clinical Summary ---
Author Organization [facility] Address [address] [place] [address] Care Team Providers Care Software Design Manager Name Role Phone Vee Allan MD Primary [...] age to complete this topic Care Teams Software Design Manager Relationship Specialty Start Date End Date Vee Allan MD PCP - General Internal Medicine 12/05/19
--- OUTSIDE RECORDS SUMMARY | 2025-02-06 10:26 | XMS_ITS ---
Author Organization [email or web address] Address [address] [address] Care Team Providers Care Application Support Lead Name Role Phone IKER ROBLERO PA-C Primary Care Provider Latonya Ramirez Unavailable [phone] REASON FOR VISIT LAB RESULTS Encounters Encounter Location Date Provider Diagnosis [email or web address] [facility] [address] [facility] [address] [place] [address] 12/12/2024 Latonya Lozano Plan Of Treatment Next Appt Details Provider Name:Latonya lopez, 02/14/2025 11:00:00 AM, 46 [facility], [facility] [address], [place], [address], Progress Notes * MIS OLSONOB:1965 (59 yo F)Acc No.[id number]:12/12/2024 Patient:?MARCUS OLSON :1965???Age:59 Y???Sex:Female Address:[address] [place] [address], [address] * true * Date:? Generated for Printi chema/Hilton/eTransmitting on:?02/06/2025 10:25 AM EDT
--- OUTSIDE RECORDS SUMMARY | 2025-02-06 10:26 | XMS_ITS | Continuity of Care Document ---
Author Organization [facility] [address] [facility] [address] [place] [address] Phone [phone] Care Team Providers Care Senior Associate Name Role Phone Vee Queen M.D Care Team Informa tijolanta Bleacher [employer] [phone] Problems Active Problems Provider Date Anxiety Eric [...] Medications SIG Qnty Indications Ordering Provider Date Walpgorbmumxe8gb Tablets 1 tabs by mouth at 11pm 1tabs Eric Shah M.D. 12/01/2022 Hfbmncmct066mj Capsules Take 1 Capsule By Mouth 2 Times A Day Terence Olvera MD Tpcqtldmtndslmuuia9e g TBPK follow package directions Unknown Vital Signs Date Vital Result Comment 12/01/2022 11:00am BP Systolic 130 mmHg BP Diastolic 70 mmHg Heart Rate 72 /min Height 64 inches 5'4 Weight 185.00 lb BMI (Body Mass Index) 31.8 kg/m2 Results Test Acquired Date Facility Test Result H/L Range N ote Cortisol 01/20/2023 [facility] Referen ce Lab Cortisol 0.6 g /dL 1 Cortisol 01/06/2023 [facility] Referen ce Lab Cortisol <pending> Cortisol 01/05/2023 [facility] Referen ce Lab Cortisol 5.3 g /dL 2 Free T4 01/05/2023 [facility] Referen ce Lab Free T4 0.98 ng/dL (0.70-1.80) TSH [facility] 0.52 uIU/mL (0.4-4.2) Free T4 01/04/2023 [facility] Referen ce Lab Free T4 <pending> TSH 01/04/2023 [facility] ce Lab TSH <pending> 1 Reference Range: [...]
--- OUTSIDE RECORDS SUMMARY | 2025-02-06 10:27 | XMS_ITS ---
Author Organization [facility] Address 46 [facility] [address] [place] [address] Care Team Providers Care [employer] Team Member Name Role Phone IKER ROBLERO PA-C Primary Care Provider Latonya Ramirez Unavailable [phone] Allergies Allergen (clinical drug ingredient) Drug/Non Drug Allergy documented on EMR Reaction Allergy Type Onset Date Status erythromycin ERYTHROMYCIN Skin Rash Drug Allergy A ctive Results Component Value Reference Range Notes Vitamin [id number] Reviewed date:12/14/2024 02:48:01 PM Interpretation: Performing Lab:[facility], [address] [place] [address], Phone - [phone], Director - MDJodry Notes/Report: Test(s) [id number]. B1, Whole Blood was developed and its performance characteristics determined by [facility]. It has not been cleared or approved by the Food and Drug Administration. Vitamin B12 632 339-2154 pg/mL Thyroxine (T4) Free, Direct- [id number] Reviewed date:12/14/2024 02:48:28 PM Interpretation: Performing Lab:[facility], Phone - [phone], Director - MDJodry Notes/Report: Test(s) [id number]-Nip. B1, Whole Blood was developed and its performance characteristics determined by [facility]. It has not been cleared or approved by the Food and Drug Administration. T4,Free(Direct) 1.16 0.82-1.77 ng/dL TSH-[id number] Reviewed date:12/14/2024 02:48:55 PM Interpretation: Performing Lab:[facility], [address] [place] [address], Phone - [phone], Director - MDJodry Notes/Report: Test(s) [id number]-Yjd. B1, Whole Blood was developed and its performance characteristics determined by [facility]. It has not been cleared or approved by the Food and Drug Administration. TSH 0.492 0.450-4.500 uIU/mL Triiodothyronine (T3), Free- [id number] Reviewed date:12/14/2024 02:48:08 PM Interpretation: Performing Lab:[facility] [address], Phone - [phone], Director - Elsa Notes/Report: Test(s) [id number]-Kut. B1, Whole Blood was developed and its performance characteristics determined by [facility]. It has not been cleared or approved by the Food and Drug Administration. Triiodothyronine (T3), Free 2.9 2.0-4.4 pg/mL Vitamin D, 41-Kqyacnf-[id number] Reviewed date:12/14/2024 02:47:53 PM Interpretation: Performing Lab:[facility] [address], Phone - [phone], Director - Elsa Notes/Report: Test(s) 354858-Nne. B1, Whole Blood was developed and its performance characteristics determined by [facility]. It has not been cleared or approved by the Food and Drug Administration. Vitamin D, 25-Hydroxy 48.0 30.0-100.0 ng/mL Vitamin D deficiency has been defined by the Atkinson of Medicine and an Endocrine Society practice guideline as a level of serum 25-OH vitamin D less than 20 ng/mL (1,2). The Endocrine Society went on to further define vitamin D insufficiency as a level between 21 and 29 ng/mL (2). 1. IOM (Atkinson of Medicine). 2010. Dietary reference intakes for calcium and D. [place]: The National Academies Press. 2. Angelica MF, Leonel NC, Sheeba MCKENNA, et al. Evaluation, treatment, and prevention of vitamin D deficiency: an Endocrine Society clinical practice guideline. JCEM. 2010; 96(7):1911-30. Vitamin B1 (Thiamine), Blood -442589 Reviewed date:12/14/2024 02:48:18 PM Interpretation: Performing Lab:[facility] [address], [place], Phone - [phone], Director - Elsa Notes/Report: Test(s) [id number]-Jvp. B1, Whole Blood was developed and its performance characteristics determined by [facility]. It has not been cleared or approved by the Food and Drug Administration. Vit. B1, Whole Blood 131.3 66.5-200.0 nmol/L PDF Report Reviewed date:12/14/2024 02:47:46 PM Interpretation: Performing Lab:[facility], [address], [place], Phone - [phone], Director - Elsa Notes/Report: Test(s) [id number]-Zbx. B1, Whole Blood was developed and its performance characteristics determined by [facility]. It has not been cleared or approved by the Food and Drug Administration. REASON FOR VISIT TALK HRT Medications Medication SIG (Take, Route, Frequency, Duration) Notes Start Date End Date Status Prometrium 100 MG 1 capsule at bedtime Orally Once a day for 90 days 12/09/2024 Active Turmeric 500 MG as directed Orally Active Gabapentin 100 MG TAKE 1 CAPSULE BY [facility] 3 TIMES A DAY Oral for [...] day do you smoke? 6-10 Vital Signs Temperature 97.4 degrees Fahrenheit 12/09/19 25 Blood pressure systolic 128 mm Hg 12/09/19 25 Blood pressure diastolic 86 mm Hg 025 Height 62 in 12/09/2024 Weight 159 lbs 12/09/2024 BMI 29.08 kg/m2 12/09/2024 Encounters Encounter Location Date Provider Diagnosis [facility] [address] [place] [address] 12/09/2024 Latonya Lozano Other fatigue R53.83 and [...] AND NEEDS TESTOSTERONE THERAPY, WILL REFER TO [facility]. WARNED DALE OF POSSIBLE VAGINAL [...] AND NEEDS TESTOSTERONE THERAPY, WILL REFER TO [facility]. WARNED PAT OF POSSIBLE VAGINAL BLEEDING. CALL IF SHE HAS ANY BLEEDING. Next Appt Details Follow Up: 3 Months, Reason: Provider Name:Latonya lopez, 02/14/2025 11:00:00 AM, [address], [address], [place], [address], Progress Notes * MIS OLSONOB:1965 (59 yo F)Acc No.[id number]:12/09/2024 PROGRESS NOTES Patient:?WHITNEY MARCUS Appointment Provider:?Latonya lopez M.D. :1965???Age:59 Y???Sex:Female D ate:12/09/2024 Address:[address] [place] [address], [facility] Pcp:CHANTAL KHAN MD Subjective: * Chief Complaints: [...] stool.?no?genitourinary complaints.?no?skin complaints.? 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 WARNED PAT OF POSSIBLE VAGINAL BLEEDING. CALL IF SHE HAS ANY BLEEDING.?? * Procedure Codes:? * Follow Up:?3 Months * Images: Billing Information: * Visit Code:? * Procedure Codes:? * Sign off status: Completed true * Appointment Provider:?Latonya Lozano M.D. Date:?12/09/2024 Generated for Renay bear/Hilton/Lambertoitting on:?02/06/2025 10:26 AM EDT History and Physical Notes * HPI (History of Present Illness) Category Sub-Category Detail Notes Category Not es New/Follow-up Patient Consult DALE ENTERED MENOPAUSE AT AGE 51. SHE HAS [...] NOT SHOW ANY REASON FOR THESE PAINS. DALE IS HERE MAINLY TO DISCUSS HRT. SHE HAS NO CONTRAINDICATIONS AND ACCEPTS RISKS OF HRT.
== END 2025-02-06 11:23 | disposition home or self-care (01) ==
LOC: HO.RHES 09:50
PROVIDERS: Visit Provider Internal Medicine Rheumatology
DX: M05.79 Rheumatoid arthritis with rheumatoid factor of multiple sites without organ or systems involvement (principal)
CPT/HCPCS: 99214; G2211

== ENCOUNTER → 2025-02-06 09:49 | Outpatient (BNVA) | payer OTHER, SELFPAY | PROVIDERS: Visit Provider Internal Medicine Rheumatology ==

== ENCOUNTER 2025-02-07 13:09 | Outpatient (REF) | payer OTHER, SELFPAY ==
--- NOTE | ~2025-02-07 | MR_ITS ---
CLINICAL HISTORY: M54.9 - Dorsalgia, unspecified Exam: MRI of the pelvis without intravenous contrast. Comparison: Lumbar spine MRI January 13, 2025. Findings: No acute fracture or concerning bone marrow signal alteration is identified. Alignment at the sacroiliac joints, hip joints, and pubic symphysis is anatomic. No significant subcortical bone marrow edema at the hip joints. Minor degenerative change of the hip joints. Small right hip joint effusion. Pubic rami are intact. No free fluid within the pelvis. Impression: No acute findings. Minor bilateral hip DJD. This document has been electronically signed by: Richard Nix MD on 02/10/2025 10:03:44
--- OUTSIDE RECORDS SUMMARY | 2025-02-07 15:01 | XMS_ITS | Encounter Summary ---
Author Organization [facility] Address [address] [place] [address] Care Team Providers Care Inspector Water Pollution Control Name Role Phone Araceli Augustin Primary Care Provider + Encounter Details Date Type Department Care Team (Latest Contact Info) Description 02/04/2025 6:58 AM EDT - 02/04/2025 11:59 PM EDT Hospital Encounter [facility] Xray [address] [place] [phone] Pain Discharge Disposition: Home or Self Care [...] Info) Description 02/08/2025 12:30 PM EDT Appointment [facility] Ultrasound [address] [place] [address] 04/10/2025 11:00 AM EDT Telemedicine [facility] [address] [facility] [address] [place] [phone] Mary Manzanares MD [address] [place] [address] documented as of this encounter Procedures Procedure [...] Signed Date: 02/04/2025 12:53 ET Workstation ID: [id number] Transcribed By: Self Edit Transcribed Date: 02/04/2025 [...] Signed Date: 02/04/2025 12:53 ET Workstation ID: [id number] Transcribed By: Self Edit Transcribed Date: 02/04/2025 12:51 ET us Tutu Trivedi MD IMG FLUOROSCOPY PROCEDURES Fin al Result documented in this encounter Visit Diagnoses Diagnosis Pain Generalized pain documented in this encounter Care Teams Inspector Water Pollution Control Relationship Specialty Start Date End Date Araceli Augustin PA [address] [place] [address] PCP - General 11/20/24 documented as of this encounter
--- OUTSIDE RECORDS SUMMARY | 2025-02-07 15:01 | XMS_ITS ---
Author Organization [facility] Address [address] [place] [address] Care Team Providers Care Copyright Manager Name Role Phone IKER ROBLERO Unavailable [phone] REASON FOR VISIT balance Encounters Encounter Location Date Provider Diagnosis [address] [facility] [address] [place] [address] 02/03/2025 IKER ROBLERO PLAN OF TREATMENT Next Appt Details Provider Name:IKER Nichols, 02/13/2025 01:00:00 PM, [address] [facility], [address], [place], [address], Progress Notes * David OLSONOB:1965 (59 yo F)Acc No.[id number]:02/03/2025 Patient:??María OLSON :1965?Age:59 Y?Sex:Fe male Address:[address], [place] [address] * true * Date:??
--- OUTSIDE RECORDS SUMMARY | 2025-02-07 15:01 | XMS_ITS | Encounter Summary ---
Author Organization [facility] Address [address] [place] [address] Care Team Providers Care Insurance Sales Assistant Name Role Phone Araceli Augustin Primary Care Provider + Reason for Referral * Imaging (Routine) - Pending Review Specialty Diagnoses / Procedures Referred By Corine strange Referred To Contact Radiology Diagnoses Encounter for screening mammogram for malignant neoplasm of breast Procedures [facility] Mammo Digital Screening w Araceli Lane PA [address] [address] Phone: tel: fax: [address] [address] Phone: tel: Referral ID Status Reason Start Date Expiration Date V isits Requested Visits Authorized [id number] Pending Review 01/30/2025 01/30/2026 1 1 Reason for Visit * Imaging (Routine) - Pending Review Specialty Diagnoses / Procedures Referred By Corine strange Referred To Contact Radiology Diagnoses Encounter for screening mammogram for malignant neoplasm of breast Procedures MG Mammo Digital Screening w SgAraceli Marcos PA [address] [address] Phone: tel: fax: [address] [address] Phone: tel: Referral ID Status Reason Start Date Expiration Date V isits Requested Visits Authorized [id number] Pending Review 01/30/2025 01/30/2026 1 1 Encounter Details Date Type Department Care Team (Latest Contact Info) Description 02/05/2025 10:22 AM EDT - 02/05/2025 11:59 PM EDT Hospital [facility] [address] [phone] Encounter for screening mammogram for malignant neoplasm [...] Info) Description 02/08/2025 12:30 PM EDT Appointment [facility] Ultrasound [address] [place] [phone] 04/10/2025 11:00 AM EDT Telemedicine [facility] [address] [facility] [address] [place] [phone] Mary Manzanares MD [address] [place] [address] documented as of this encounter Procedures Procedure [...] year. Mammo Location: [facility], [address] [place], [place], [address], . -------- FINAL REPORT -------- Dictated By: Stefani Zamora Dictated Date: 02/06/2025 09:43 ET Assigned Physician: Stefani Zamora Reviewed and Electronically Signed By: Stefani Zamora Signed Date: 02/06/2025 09:45 ET Workstation ID: [id number] Transcribed By: Self Edit Transcribed Date: 02/06/2025 [...] year. Mammo Location: [facility], [address] [place] [address], [id number], . -------- FINAL REPORT -------- Dictated By: Stefani Zamora Dictated Date: 02/06/2025 09:43 ET Assigned Physician: Stefani Zamora Reviewed and Electronically Signed By: Stefani Zamora Signed Date: 02/06/2025 09:45 ET Workstation ID: [id number] Transcribed By: Self Edit Transcribed Date: 02/06/2025 09:43 ET Araceli BOOTHE IMG BI PROCEDURES Final Result documented in this encounter Visit Diagnoses Diagnosis Encounter for screening mammogram for malignant neoplasm of breast documented in this encounter Care Teams Insurance Sales Assistant Relationship Specialty Start Date End Date Araceli Augustin PA [address] [place] [phone] PCP - General 11/20/24 documented as of this encounter
--- OUTSIDE RECORDS SUMMARY | 2025-02-07 15:01 | XMS_ITS | Encounter Summary ---
Author Organization [facility] Address [address] [place] [address] Care Team Providers Care Airport Traffic Controller Name Role Phone Araceli Augustin Primary Care Provider + Reason for Visit * Reason Comments Follow-up pain Follow-up Pain, most severe Encounter Details Date Type Department Care Team (Late st Contact Info) Description 02/06/2025 8:30 AM EDT Office Visit [facility] [place] [address] [place] [phone] Nichelle Archibald PA [address] [place] [phone] Acute pain of left shoulder (Primary Dx) Social History Tobacco Use Types Packs/Day Years [...] through Care Everywhere. * Rotator Cuff: Exercises (French) documented in this encounter Progress Notes * TL Dobbs - 02/06/2025 8:30 AM EDT CHIEF COMPLAINT: Follow-up of the Right Shoulder (pain) and Follow-up of the Left Shoulder (Pain, most severe) had concerns including Follow-up of the Right Shoulder (pain) and Follow-up of the Left Shoulder (Pain, most severe). IDENTIFIER: María Phillips is a 59 y.o. old female SUBJECTIVE: María Phillips is here for follow-up of her left shoulder pain. She has multiple orthopedic issues. 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 She has also had issues with pain in her right arm and numbness tingling. Has a history of carpal tunnel surgery done in 2019. She said a recent workup for her right arm pain including a recent EMG nerve conduction test that showed no recurrence of carpal tunnel. Also had a cervical spine MRI that showed considerable stenosis and is seeing neurosurgery. Also history of chronic shoulder pain bilaterally. At last visit with me about 3 to 4 weeks ago the left shoulder was bothering her and x-rays did show calcification adjacent to greater tuberosity. We discussed cortisone injection we decided to hold off. She was mostly be getting acortisone injection, epidural the cervical spine but this was never done. She ended up getting a cortisone injection for her low back recently and also recent knee injections with Dr. Mcclure . She reports continued left shoulder pain no radicular symptoms. She is also concerned because she is been h aving some pain over her axilla on the left with lifting her arm. She saw her primary care doctor and an ultrasound is ordered for this area. Of note she also sees pain management, [facility]. She also sees rheumatology and her patient they do feel she has a component of rheumatoid arthritis and may be starting medication but has not started anything as of yet. PAST MEDICAL/SURGICAL HISTORY: Patient Active Problem List [...] 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 ACTIVE MEDICATIONS: Current Outpatient Medications on File Prior to Visit Medication Sig Dispense Refill ascorbic acid (VITAMIN [...] mouth. docusate sodium (COLACE) 100 mg capsule hydrOXYzine HCL (ATARAX) 25 mg tablet Take 1 tablet (25 mg total) by mouth every 8 (eight) hours ifneeded for anxiety for up to 14 days. 42 tablet 0 ibuprofen (ADVIL,MOTRIN) 600 mg tablet melatonin 10 mg tablet Take 1 tablet [...] meals and at bedtime 120 each 11 No current facility-administered medications on file prior to visit. ALLERGIES: Allergies Allergen Reactions Erythromycin Hives and Rash all mycins Other reaction(s): Hives/Urticaria Other reaction(s): Hives/Urticaria all mycins all mycins Infliximab Other Twiching legs, burning scalp, headache Clindamycin Hives PHYSICAL EXAM: Visit Vitals Ht 1.626 m (64 ) Wt 74.8 kg (165 lb) BMI 28.32 kg/m?? OB Status Postmenopausal Smoking Status Every Day BSA 1.8 m?? APPEARANCE: Alert and in no acute distress EYES: conjunctivae and sclerae normal EXTREMITIES: Extremities warm and well perfused without clubbing, cyanosis, or edema Bilateral shoulders no skin abnormalities or atrophy. Focusing on the left shoulder today active forward flexion is 170 internal rotation to T12. Passively forward flexion is 170, abduction external rotation of 100, external rotation 55. Negative Neer'sand Serrano test. Strength intact in IR ER spinatus on the left and negative drop arm test. She reports some pain over the axilla and more posterior over the triceps. No swelling seen in that area. Mild pain over the triceps with active flexion extension of the elbow against resistance. No crepitusto the shoulder. VASCULAR:well perfused with normal pulses in the distal extremities and no peripheral edema noted NEURO: Awake, alert and oriented SKIN: Skin color, texture, turgor normal. No rashes or lesions. PSYCH: does not appear depressed or anxious and oriented to time, place and person LABS/IMAGING: Lab Results Component Value Date HGBA1C 5.4 10/28/2024 Xrays reviewed: Review of x-rays of the left shoulder done January 08 showed some mild narrowing the subacromial spaceno proximal migration humeral head. No significant arthritis. There is a faint calcification adjacent to the greater tuberosity on the left. IMPRESSION: 1. Acute pain of left shoulder PLAN: The details of the visit were reviewed with the patient. Pertinent history, and objective findings were reviewed, along with the diagnoses: Left shoulder pain most likely related to calcific tendinitis. Symptoms were very mild today and exam was overall benign. She is concerned over the pain over her axilla. It could be muscular but did recommend following up with her primary and completing the workup with the ultrasound. She was given some rotator cuff exercises for the left shoulder. I statedshe can continue with anti-inflammatories, and heat as needed. Would not recommend cortisone injection for the shoulder at this time. No further follow-up needed at this time for the shoulder left can call for an appointment if needed . María Phillips acknowledges understanding of the above plan and agrees to follow recommendations and/or take medications as prescribed. No orders of the defined types were placed in this encounter. @ELECSIG@ documented in this encounter Plan of Treatment Upcoming Encounters Date Type Department Care Team (Late st Contact Info) Description 02/08/2025 12:30 PM EDT Appointment [facility] Ultrasound [address] [place] [phone] 04/10/2025 11:00 AM EDT Telemedicine [facility] 175 [facility] [address] [place] [phone] Mary Manzanares MD [address] [place] [address] documented as of this encounter Visit Diagnoses Diagnosis Acute pain of left shoulder- Primary documented in this encounter Care Teams Airport Traffic Controller Relationship Specialty Start Date End Date Araceli Augustin PA [address] [facility] [address] [place] [address] PCP - General 11/20/24 documented as of this encounter
--- OUTSIDE RECORDS SUMMARY | 2025-02-07 15:01 | XMS_ITS | Encounter Summary ---
Author Organization [facility] Address [address] [place] [address] Care Team Providers Care Tool Grinder Operator Surface Name Role Phone Araceli Augustin Primary Care Provider + Reason for Referral * Pain Management (Routine) - Authorized Specialty Diagnoses / Procedures Referred By Contac t Referred To Contact Pain Medicine Diagnoses Radiculopathy, lumbar region Procedures Injection epidural lumbar without guidance Tutu Trivedi MD [address] [place] [address] Phone: tel: fax: Referral ID Status Reason Start Date Expiration Date V isits Requested Visits Authorized [id number] Authorized 01/24/2025 01/24/2026 1 1 Reason for Visit * Pain Management (Routine) - Authorized Specialty Diagnoses / Procedures Referred By Contac t Referred To Contact Pain Medicine Diagnoses Radiculopathy, lumbar region Procedures Injection epidural lumbar without guidance Tutu Trivedi MD [address] [place] [address] Phone: tel: fax: Referral ID Status Reason Start Date Expiration Date V isits Requested Visits Authorized [id number] Authorized 01/24/2025 01/24/2026 1 1 Encounter Details Date Type Department Care Team (Latest Contact Info) Description 02/04/2025 7:42 AM EDT Hospital Encounter [facility] [address] [place] [address] Tutu Trivedi MD [address] [place] [address] Radiculopathy, lumbar region Social History Tobacco Use [...] Info) Description 02/08/2025 12:30 PM EDT Appointment [facility] Ultrasound [address] [place] [address] 04/10/2025 11:00 AM EDT Telemedicine [facility] 175 [facility] [address] [place] [address] Mary Manzanares MD [address] [place] [address] Scheduled Orders Name Type Priority Associated Diagnoses [...] day. added in this encounter Care Teams Tool Grinder Operator Surface Relationship Specialty Start Date End Date Araceli Augustin PA 299 [facility] [address] [place] [address] PCP - General 11/20/24 documented as of this encounter
--- OUTSIDE RECORDS SUMMARY | 2025-02-07 15:02 | XMS_ITS ---
Author Organization [facility] Address [address] [facility] [address] [place] [address] Care Team Providers Care Rehab Nursing Tech Name Role Phone LINDA KHAN Primary Care Provider [phone] Hugo Plata Unavailable [phone] REASON FOR VISIT Excruciating pain Encounters Encounter Location Date Provider Diagnosis [facility] [address] [facility] [address] [place] [address] 10/21/2024 Hugo Plata Rib pain on right side R07.81 Assessments Encounter Date Diagnosis (ICD Code) Assessment Notes Treatment Notes Treatment Clinical Notes Section Notes 10/21/2024 Rib pain on right side (ICD-10 - R07.81) Plan Of Treatment No Information Progress Notes * MIS OLSONOB:1965 (59 yo F)Acc No.[id number]:10/21/2024 Patient:?MARCUS OLSON :1965???Age:59 Y???Sex:Female Address:[address] [place] [address] Subjective: * Chief Complaints: * ???Excruciating pain * Medical History:? * Surgical History:? * Hospitalization/Major Diagno stic Procedure:? * Medications:? Objective: * Vitals:? * Physical Examination:? Assessment: * Assessment: 1.?Rib pain on right side - R07.81 (Primary)??? Plan: * Treatment: * Procedure Codes:? * true * Date:? Generated for Kareeni chema/Hilton/eTransmitting on:?02/07/2025 03:01 PM EDT
--- OUTSIDE RECORDS SUMMARY | 2025-02-07 15:02 | XMS_ITS ---
Author Organization [facility] Address [address] [place] [address] Care Team Providers Care Major League Baseball Player Name Role Phone IKER ROBLERO Unavailable [phone] REASON FOR VISIT Urg Encounters Encounter Location Date Provider Diagnosis [address] [facility] [address] [place] [address] 02/03/2025 IKER ROBLERO PLAN OF TREATMENT Next Appt Details Provider Name:IKER Nichols, 02/13/2025 01:00:00 PM, [address] [facility], [address], [place], [address], Progress Notes * David OLSONOB:1965 (59 yo F)Acc No.[id number]:02/03/2025 Patient:??María OLSON :1965?Age:59 Y?Sex:Fe male Address:[address], [place] [address] * true * Date:??
--- OUTSIDE RECORDS SUMMARY | 2025-02-07 15:02 | XMS_ITS | Data Portability ---
Author Organization [facility] Address [address] [place] [address] Care Team Providers Care Environmental Department Manager Name Role Phone [facility] Primary Care Provi ramses Assessment No assessment recorded. Plan of Treatment Reminders Order Date Submit Date Provider Last Modified By Organization Details Last Modified Time Details Appointments None recorded. Lab rapid strep group A, throat 2022 023 [email or web address] [facility], [address] [place] [address], [address], 3 19:09:54 streptococc us group A, culture, throat 2022 023 [email or web address] [facility], [address] [place] [address], [place], [address], 3 19:09:54 Referral emergency medicine referral - left lower facial weakness and numbness x 5 [email or web address] [facility], [address] [place], [address], 4 18:35:48 Procedures None recorded. Surgeries None recorded. Imaging None recorded. Medication Orders prednisone 20 mg tablet 2022 023 [email or web address] 5 [id number], [address] [place], [address], 4 16:05:23 benzonatate 200 mg capsule 2022 023 [email or web address] 5 [id number], [address] [place], [address], 16:05:13 Patient TargetsNo targets recorded. Patient Instructions Encounter Date Encounter Id Patient Instructions Last Modified By Organization Details Last Modified Time 12/17/2022 [id number] sore throat: car e instructions [email or web address] Not [...] care for yourself at home? Take an lyyw-ucm-qmyxket pain medicine. Avoid Ibuprofen, Aleve and Aspirin if . If the doctor prescribed antibiotics, take them as directed. Do not stop taking them just because you feel better. You need to take the full course of antibiotics. Be careful when taking mulj-xjy-vmxktvg cold or influenza (flu) medicines and Tylenol [...] congestion worse. Not available 12/17/2022 19:07:18 05/19/2024 [id number] head or face [email or web address] n: care instructions [...] Not Available [facility] ([facility]) [address] [facility], [place], [address], 12/21/2022 06:07:48 12/17/1912/17/2022 rapid strep group A, throa t Unknown Analyte Normal = Negati ve Not Available [facility] [address] [place], [address], 12/17/2022 18:34:11 12/17/1912/17/2022 rapid strep group A, throa t Unknown Analyte negati ve Not Available [facility] [address] [place] [address], [address], 12/17/2022 18:34:11 Result Notes None recorded. 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 0.5 PPD Information not available 12/17/2022 Do You Use Any Illicit Or Recreational Drugs? No [email or web address] Information not available 12/17/2022 Have You Recently Traveled Abroad? No [email or web address] Information not available 12/17/2022 Do You Or Have You Ever Used Any Other Forms Of Tobacco Or Nicotine? No [email or web address] Information not available 12/17/2022 Sex: Unknown Functional Status None recorded. Mental Status None recorded. Family History Relationship Description Onset Age of this Age Resolved Age Notes LastModified by Organization Details LastModified Time Unspecified Relation Disorder of thyroid gland [email or web address] Not available 2022 18:38:50 Medical History No [...] SNOMED-CT Code Diagnosis ICD10 Code Diagnosis Note [id number] [place] [address] [place] [address] 12/17/2022 17:31:11 12/17/2022 19:17:28 Sore throat 103121307 J02.9 [id number] [place] [address] [address] 05/19/2024 15:59:19 05/19/2024 16:21:39 Numbness of face 786100206 R20.0 ER now !!! Health Concerns Section [...] - DOS ON OR BEFORE 11/05/2023 - [facility] ([facility]) María Phillips [id number] María Phillips 05/19/2024 1 [facility] - DOS PRIOR TO 2024 (PPO) María Phillips [id number] HA María Phillips Notes Date Note Type [...] Narendra Diaz NP [address] [place], [address], [place] - [facility] 12/17/2022 19:11:14 4 text/html a couple of weeks. twitching in face. x5 days having facial pain. pain level is 5/10. feels slight numbness on left side of mouth. patient also notices lower facial weakness as well. no chest pain. has slight head ache Juan F Noe, DO [address] [place], [address], [place] - [facility] 05/19/2024 16:42:19 OBGyn Episode No OBEpisode recorded.
--- OUTSIDE RECORDS SUMMARY | 2025-02-07 15:03 | XMS_ITS ---
Author Organization [facility] Address [address] [address] Care Team Providers Care Educational Psychology Professor Name Role Phone LINDA KHAN Primary Care Provider [phone] Hugo Plata Unavailable [phone] REASON FOR VISIT Diagnosis Encounters Encounter Location Date Provider Diagnosis [facility] [address] [facility] [address] [place] [address] 10/24/2024 Hugo Plata Plan Of Treatment No Information Progress Notes * MIS OLSONOB:1965 (59 yo F)Acc No.[id number]:10/24/2024 Patient:?WHITNEY MARCUS :1965???Age:59 Y???Sex:Female Address:[address] [place] [address] * true * Date:? Generated for Renay bear/Hilton/eTransmitting on:?02/07/2025 03:02 PM EDT
--- OUTSIDE RECORDS SUMMARY | 2025-02-07 15:03 | XMS_ITS | Patient Health Record ---
Author Organization [facility] Address [address] [place] [address] Care Team Providers Care Hvac Refrigeration Technician Name Role Phone DUDLEYUlices LINDA Primary Care Provider SharifcarlosHugo brumfield Unavailable [phone] Allergies Allergen (clinical drug ingredient) Drug/Non Drug Allergy documented on EMR Reaction Allergy Type Onset Date Status azithromycin Azithromycin Unknown Drug Allergy A ctive clindamycin Clindamycin Unknown Drug Allergy Act aashish Results Component Value Reference Range Notes XR CERVICAL SPINE 4-5 VIEWS Reviewed date:11/21/2024 07:59:09 AM Interpretation: Performing Lab: Notes/Report: Note See Note [facility], a member of [employer] Patient Name: MARÍA OLSON Date of : 1965 Reason for Exam: OTHER Exam Date: 11/18/2024 [id number] EST Report Status: Final Ordering Provider: IKER [...] to the prior neck CTA. Telerad PA ([id number]) -------- FINAL REPOR T -------- Dictated By: Dayami Walker i Dictated Date: 11/19/2024 13:40 ET Assigned Physician: Dayami Diehl Reviewed and Electronically Signed By: Dayami Diehl Signed Date: 025 13:45 ET Workstation ID: [id number] Transcribed By: Self Edit Transcribed Date: 11/19/2024 13:40 ET Comp. Metabolic Panel (14)-3 Reviewed date:07/30/2024 07:54:38 AM Interpretation: Performing Lab:Lab[facility] Gal[facility], [address], Phone - [phone], Director - [facility] Notes/Report: Glucose 92 70-99 mg/dL BUN 5 [...] IU/L ALT (SGPT) 23 0-32 IU/L Lipid Panel-[id number] Reviewed date:09/09/2024 12:30:11 PM Interpretation: Performing Lab:Labcodaniella Galicia, [address] [facility], [place], Phone - [phone], Director - [facility] Notes/Report: Cholesterol, Total 269 100-199 mg/dL Triglycerides 73 0-149 mg/dL HDL Cholesterol 96 >39 mg/dL VLDL Cholesterol Corby 12 5-40 mg/dL LDL Chol Calc ([facility]) 161 0-99 mg/dL Lipid Panel-[id number] Reviewed date:07/30/2024 03:17:56 PM Interpretation: Performing Lab:[email or web address] [place], [address] [place] [address], Phone - [phone], Director - MDJodry Notes/Report: Cholesterol, Total 266 100-199 mg/dL Triglycerides 102 0-149 mg/dL HDL Cholesterol 82 >39 mg/dL VLDL Cholesterol Corby 17 5-40 mg/dL LDL Chol Calc ([facility]) 167 0-99 mg/dL TSH+Free [id number] Reviewed date:07/30/2024 07:54:27 AM Interpretation: Performing Lab:[facility] [place], [address] [place] [address], Phone - [phone], Director - MDGaryy Notes/Report: TSH 0.365 0.450-4.500 uIU/mL T4,Free(Direct) 1.20 0.82-1.77 ng/dL CBC With Differential/Platel et-[id number] Reviewed date:07/30/2024 07:54:24 AM Interpretation: Performing Lab:[email or web address] [place], [address] [place] [address], Phone - [phone], Director - MDJodry Notes/Report: WBC 5.4 3.4-10.8 [...] % Immature Grans (Abs) 0.0 0.0-0.1 x10E3/uL Reason For Referral Reason Evaluation and manag ement - Dr New Diagnosis 1 Sprain of ribs, init ial encounter (S23.41XA) Referral Organization [facility] Referring Provider First Name MCKEON Referring Provider Last Name [facility] Referring Provider Speciality Internal edicine Referred Provider Specialty Physical Med icine General Notes Referral faxed to [facility] Physical Medicine - Office will call patient for scheduling., Leah Bourgeois 08/21/2024 04:24:37 PM > Referral Priority Routine Reason Evaluation and manag ement Diagnosis 1 Sprain of ribs, init ial encounter (S23.41XA) Referral Organization [facility] Referring Provider First Name LINDA Referring Provider Last Name [facility] Referring Provider Speciality Internal edicine Referred Provider Specialty Physical Med icine and Rehabilitation General Notes Referral sent to [facility] - Office will call patient for scheduling., Leah oBurgeois 08/27/2024 11:24:16 AM > Referral Priority Routine Reason Evaluation and manag ement Diagnosis 1 Sprain of ribs, init ial encounter (S23.41XA) Referral Organization [facility] Referring Provider First Name LINDA Referring Provider Last Name [facility] Referring Provider Speciality Internal edicine Referred Provider Specialty Pulmonology General Notes Referral sent to [facility] - Office will call patient for scheduling.Bk Latraya 08/27/2024 04:11:52 PM > Referral Priority Routine Reason Please evaluate and treat Diagnosis 1 Spondylolisthesis, l umbar region (M43.16) Referral Organization [facility] Referring Provider First Name Hugo Referring Provider Last Name Sherlyn Referred Provider Specialty Orthopedic S urgery General Notes Referral faxed to Dr Clive Ross per patient's request at [phone]., Adelita Cerrato 10/03/2024 11:16:33 AM > Referral [...] W/U Status Risk Notes Problem Autoimmune thyroiditis (33541748) Autoimmune thyroiditis (E06.3) Active confirmed Problem Vitamin deficiency (31892128) Vitamin deficiency, unspecified (E56.9) Active confirmed Problem Mixed hyperlipidemia (023782476) Mixed hyperlipidemia (E78.2) Active confirmed Problem Tobacco user (017833517) Nicotine dependence, cigarettes, uncomplicated (F17.210) Active confirmed Problem Generalized anxiety disorder (57525106) Generalized anxiety disorder (F41.1) Active confirmed Problem Chronic sinusitis (80952492) Chronic sinusitis, unspecified (J32.9) Active confirmed Problem Rheumatoid arthritis (84827951) Other rheumatoid arthritis with rheumatoid factor of unspecified site (M05.80) Active confirmed Problem Acquired spondylolisthesis (164778634) Spondylolisthesis , lumbar region (M43.16) Active confirmed Problem Solitary sacroiliitis (407794426) Sacroiliitis, not elsewhere classified (M46.1) Active confirmed Problem Solitary pulmonary nodule (599299693) Solitary pulmonary nodule (R91.1) Active confirmed Vital Signs Heart Rate 75 /min 09/24/2024 Temperature 97.4 degrees Fahrenheit 09/24/2024 Blood pressure diastolic 76 mm Hg 09/24/2024 Oximetry 98 % 09/24/2024 Height 5'4 in 09/24/2024 Blood pressure systolic 130 mm Hg 09/24/2024 Weight 164 lbs 09/24/2024 BMI 28.15 kg/m2 09/24/2024 Encounters Encounter Location Date Provider Diagnosis [address] [address] 07/29/2024 MCKEON GUL Other rheumatoid arthritis with rheumatoid factor of unspecified site M05.80 ; Latent tuberculosis Z22.7 ; Personal history of COVID-19 Z86.16 ; Generalized anxiety disorder F41.1 ; Nicotine dependence, cigarettes, uncomplicated F17.210 ; Tobacco abuse counseling Z71.6 ; Solitary pulmonary nodule R91.1 ; Autoimmune thyroiditis E06.3 and Acute sinusitis, unspecified J01.[address] [address] 08/16/2024 Ghadeer Mazloum Bilateral temporomandibular joint disorder, unspecified M26.603 ; Chronic sinusitis, unspecified J32.9 and Mixed hyperlipidemia E78.[address] [address] 08/21/2024 MCKEONNOREEN BUCKNERL Sprain of ribs, init ial encounter S23.41XA [address] [place] [address] 09/24/2024 Ghadeer Mazloum Intercostal pain R07 .82 and Sacroiliitis, not elsewhere classified M46.1 [facility] [address] [place] [address] 07/16/2024 [facility] [address] [place] [address] 07/29/2024 [facility] [address] [place] [address] 07/30/2024 [facility] Mixed hyperlipidemia E78.2 [facility] [address] [place] [address] 08/07/[address] [place] [address] 08/19/[address] [place] [address] 08/20/[address] [place] [address] 08/21/2024 MCKEON GUL Sprain of ribs, init ial encounter S23.41XA [facility] [address] [place] [address] 08/28/[address] [place] [address] 09/02/[address] [place] [address] 09/04/2024 MCKEON GUL Left upper quadrant pain R10.12 and Sprain of ribs, initial encounter S23.41XA [facility] [address] [place] [address] 09/16/2024 MCKEON GUL Left upper quadrant pain R10.[address] [place] [address] 10/31/2024 [facility] [address] [place] [address] 07/31/2024 MCKEON GUL Weakness R53.1 and L eft upper quadrant pain R10.12 [facility] [address] [place] [address] 08/14/2024 [facility] [address] [place] [address] 08/20/2024 [facility] [address] [place] [address] 08/20/2024 [facility] [address] [place] [address] 08/20/2024 Hugo [facility] [address] [place] [address] 08/22/2024 [facility] [address] [place] [address] 08/22/2024 [facility] [address] [place] [address] 08/22/2024 [facility] [address] [place] [address] 08/22/2024 [facility] [address] [place] [address] 08/22/2024 [facility] [address] [place] [address] 08/23/2024 [facility] [address] [place] [address] 08/23/2024 [facility] [address] [place] [address] 08/23/2024 [facility] [address] [place] [address] 08/23/2024 MCKEON GUL [facility] [address] [place] [address] 08/23/2024 [facility] [address] [facility] [place] [address] 08/26/2024 MCKEON L [facility] [address] [place] [address] 08/26/2024 [facility] [address] [place] [address] 08/27/2024 [facility] [address] [place] [address] 08/27/2024 [facility] [address] [place] [address] 08/27/2024 [facility] [address] [place] [address] 08/27/2024 [facility] [address] [place] [address] 08/28/2024 [facility] [address] [place] [address] 08/28/2024 [facility] [address] [place] [address] 08/28/2024 [facility] [address] [place] [address] 08/28/2024 [facility] G[facility] [address] [place] [address] 08/28/2024 [facility] [address] [place] [address] 08/28/2024 [facility] [address] [place] [address] 08/28/2024 [facility] [address] [place] [address] 08/28/2024 [facility] [address] [place] [address] 08/28/2024 [facility] [address] [place] [address] 08/28/2024 [facility] [address] [place] [address] 08/28/2024 [facility] [address] [place] [address] 08/30/2024 [facility] [address] [place] [address] 09/02/2024 MCKEON [facility] Left upper quadrant pain R10.12 [facility] [address] [place] [address] 09/03/2024 [facility] [address] [place] [address] 09/04/2024 MCKEON [facility] Vitamin deficiency, unspecified E56.9 [facility] [address] [place] [address] 09/04/2024 MCKEON GUL Encounter for screen ing mammogram for malignant neoplasm of breast Z12.31 [facility] [address] [place] [address] 09/05/2024 [facility] [address] [place] [address] 09/06/2024 [facility] [address] [place] [address] 09/09/2024 [facility] [address] [place] [address] 09/11/2024 [facility] [address] [facility] [address] 09/17/2024 [facility] [address] [facility] [address] 09/17/2024 [facility] [address] [place] [address] 09/17/2024 [facility] [address] [place] [address] 09/18/2024 [facility] [address] [place] [address] 09/19/2024 [facility] [address] [place] [address] 09/19/2024 [facility] [address] [facility] [place] [address] 09/25/2024 [facility] [address] [place] [address] 09/26/2024 [facility] [address] [facility] [place] [address] 09/30/2024 [facility] [address] [facility] [place] [address] 10/01/2024 [facility] [address] [facility] [place] [address] 10/01/2024 [facility] [address] [place] [address] 10/07/2024 [facility] [address] [place] [address] 10/07/2024 [facility] [address] [place] [address] 10/10/2024 [facility] [address] [place] [address] 10/21/2024 Hugo Olguincarlosoctaviano Rib pain on right si de R07.81 [facility] [address] [place] [address] 10/24/2024 Hugo Plata Assessments Encounter Date Diagnosis (ICD Code) Assessment Notes Treatment Notes Treatment Clinical Notes Section Notes 07/29/2024 Other rheumatoid arthritis with rheumatoid factor of unspecified site (ICD-10 - M05.80) María is a 59-year-old lady with rheumatoid arthritis, generalized anxiety disorder here to establish care. Plan is as follows: Rheumatoid arthritis. She sees Dr. Bang at [facility]. 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 Generalized anxiety disorder. Mood is stable on [...] is asymptomatic Eye screening. She sees her digital communications manager Dr. Leonardo regularly. Dental screening. She sees dentist regularly. Breast cancer screening. She is up-to-date on her mammogram. Female screening. She follows up with her industrial sales engineer for breast and pelvic exams. Colon cancer screening. She had her colonoscopy done in 2022 and is on 68-tenm-tnzhr. Immunizations. She is up-to-date on her COVID and influenza vaccinations. Screening blood work before next appointment. General health concerns discussed with patient. Scribe services used to formulate this note under HIPAA compliance and under [place] law mandated for scribe services. Patient aware [...] Rheumatoid arthritis. She sees Dr. Bang at [facility]. 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 Generalized anxiety disorder. Mood is stable on [...] is asymptomatic Eye screening. She sees her digital communications manager Dr. Leonardo regularly. Dental screening. She sees dentist regularly. Breast cancer screening. She is up-to-date on her mammogram. Female screening. She follows up with her industrial sales engineer for breast and pelvic exams. Colon cancer screening. She had her colonoscopy done in 2022 and is on 33-hlzu-uvsci. Immunizations. She is up-to-date on her COVID and influenza vaccinations. Screening blood work before next appointment. General health concerns discussed with patient. Scribe services used to formulate this note under HIPAA compliance and under [place] law mandated for scribe services. Patient aware [...] Rheumatoid arthritis. She sees Dr. Bang at [facility]. 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 Generalized anxiety disorder. Mood is stable on [...] is asymptomatic Eye screening. She sees her digital communications manager Dr. Leonardo regularly. Dental screening. She sees dentist regularly. Breast cancer screening. She is up-to-date on her mammogram. Female screening. She follows up with her industrial sales engineer for breast and pelvic exams. Colon cancer screening. She had her colonoscopy done in 2022 and is on 28-tjah-vubnq. Immunizations. She is up-to-date on her COVID and influenza vaccinations. Screening blood work before next appointment. General health concerns discussed with patient. Scribe services used to formulate this note under HIPAA compliance and under [place] law mandated for scribe services. Patient aware [...] Rheumatoid arthritis. She sees Dr. Bang at [facility]. 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 Generalized anxiety disorder. Mood is stable on [...] is asymptomatic Eye screening. She sees her digital communications manager Dr. Leonardo regularly. Dental screening. She sees dentist regularly. Breast cancer screening. She is up-to-date on her mammogram. Female screening. She follows up with her industrial sales engineer for breast and pelvic exams. Colon cancer screening. She had her colonoscopy done in 2022 and is on 92-oyne-bdzph. Immunizations. She is up-to-date on her COVID and influenza vaccinations. Screening blood work before next appointment. General health concerns discussed with patient. Scribe services used to formulate this note under HIPAA compliance and under [place] law mandated for scribe services. Patient aware [...] Rheumatoid arthritis. She sees Dr. Bang at [facility]. 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 Generalized anxiety disorder. Mood is stable on [...] is asymptomatic Eye screening. She sees her digital communications manager Dr. Leonardo regularly. Dental screening. She sees dentist regularly. Breast cancer screening. She is up-to-date on her mammogram. Female screening. She follows up with her industrial sales engineer for breast and pelvic exams. Colon cancer screening. She had her colonoscopy done in 2022 and is on 77-nfiu-ycynk. Immunizations. She is up-to-date on her COVID and influenza vaccinations. Screening blood work before next appointment. General health concerns discussed with patient. Scribe services used to formulate this note under HIPAA compliance and under [place] law mandated for scribe services. Patient aware [...] Rheumatoid arthritis. She sees Dr. Bang at [facility]. 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 Generalized anxiety disorder. Mood is stable on [...] is asymptomatic Eye screening. She sees her digital communications manager Dr. Leonardo regularly. Dental screening. She sees dentist regularly. Breast cancer screening. She is up-to-date on her mammogram. Female screening. She follows up with her industrial sales engineer for breast and pelvic exams. Colon cancer screening. She had her colonoscopy done in 2022 and is on 76-ojuf-omfvn. Immunizations. She is up-to-date on her COVID and influenza vaccinations. Screening blood work before next appointment. General health concerns discussed with patient. Scribe services used to formulate this note under HIPAA compliance and under [place] law mandated for scribe services. Patient aware [...] Rheumatoid arthritis. She sees Dr. Bang at [facility]. 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 Generalized anxiety disorder. Mood is stable on Buspirone 7.5 MG once a day. Nicotine dependence. She is still currently smoking and cessation advised. she is not ready to quit at this point Orck's disease. 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 Acute sinusitis. Start Amoxicillin-Pot Clavulanate, 875-125 MG BID for 7 days along with Flonase nasal spray OD. Solitary pulmonary nodule. She follows up with infectious disease and they have routine chest imaging. She is asymptomatic Eye screening. She sees her digital communications manager Dr. Leonardo regularly. Dental screening. She sees dentist regularly. Breast cancer screening. She is up-to-date on her mammogram. Female screening. She follows up with her industrial sales engineer for breast and pelvic exams. Colon cancer screening. She had her colonoscopy done in 2022 and is on 79-qzhg-fyidl. Immunizations. She is up-to-date on her COVID and influenza vaccinations. Screening blood work before next appointment. General health concerns discussed with patient. Scribe services used to formulate this note under HIPAA compliance and under [place] law mandated for scribe services. Patient aware [...] Rheumatoid arthritis. She sees Dr. Bang at [facility]. 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 Generalized anxiety disorder. Mood is stable on [...] is asymptomatic Eye screening. She sees her digital communications manager Dr. Leonardo regularly. Dental screening. She sees dentist regularly. Breast cancer screening. She is up-to-date on her mammogram. Female screening. She follows up with her industrial sales engineer for breast and pelvic exams. Colon cancer screening. She had her colonoscopy done in 2022 and is on [id number]. Immunizations. She is up-to-date on her COVID and influenza vaccinations. Screening blood work before next appointment. General health concerns discussed with patient. Scribe services used to formulate this note under HIPAA compliance and under [place] law mandated for scribe services. Patient aware [...] Rheumatoid arthritis. She sees Dr. Bang at [facility]. 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 Generalized anxiety disorder. Mood is stable on [...] is asymptomatic Eye screening. She sees her digital communications manager Dr. Leonardo regularly. Dental screening. She sees dentist regularly. Breast cancer screening. She is up-to-date on her mammogram. Female screening. She follows up with her industrial sales engineer for breast and pelvic exams. Colon cancer screening. She had her colonoscopy done in 2022 and is on [id number]. Immunizations. She is up-to-date on her COVID and influenza vaccinations. Screening blood work before next appointment. General health concerns discussed with patient. Scribe services used to formulate this note under HIPAA compliance and under [place] law mandated for scribe services. Patient aware [...] Insured Coverage Start Date Coverage End Date [facility] [employer] [address] [address] [place] [phone] [id number] RAMAH, MARÍA Self - patient is the insured 0 Medical (General) History Medical History History ICD Code TB treated by ID in [facility] RA treated by DR Bang at [facility] eye disease and see Dr Leonardo generalized anxiety disorder skin sensitivity Surgical History Surgery Date(Month/Year) carpal tunnel strabismus repair Gallbladder removed hernia repair
--- OUTSIDE RECORDS SUMMARY | 2025-02-07 15:03 | XMS_ITS ---
Author Organization [employer] [facility] Address [address] [place] [id number] Care Team Providers Care Jewelry Finisher Name Role Phone IKER ROBLERO PA-C Primary Care Provider Latonya Ramirez Unavailable [phone] REASON FOR VISIT X RAY REPORT Encounters Encounter Location Date Provider Diagnosis [facility] [address] [place] [address] [address] [place] [address] 01/22/2025 Latonya Lozano Plan Of Treatment Next Appt Details Provider Name:Latonya lopez, 02/14/2025 11:00:00 AM, [address] [facility], [facility] [address], [place], [phone], Progress Notes * MIS OLSONOB:1965 (59 yo F)Acc No.[id number]:01/22/2025 Patient:?MARCUS OLSON :1965???Age:59 Y???Sex:Female Address:[address] [place] [address], [id number] * true * Date:? Generated for Printi chema/Hilton/eTransmitting on:?02/07/2025 03:02 PM EDT
--- OUTSIDE RECORDS SUMMARY | 2025-02-07 15:03 | XMS_ITS | Clinical Summary ---
Author Organization [facility] Address [address] [place] [address] Phone Care Team Providers Care Flower Planter Name Role Phone Araceli Augustin Primary Care [...] back and legs. The lumbar CT from [facility] show degenerative disc disease but not stenosis. Her description of paresthesias and leg shaking raise concerns for stenosis. Her workup at the [facility] ER did not correlate with cauda equina syndrome. She is now awaiting a lumbar spine MRI at [place]. I be happy to review that once [...] this, is currently seeing 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 [place] at [facility], had injection in the right lower [...] Encounters Date Type Department Care Team Description 02/07/2025 Telephone Orthopedic Surgery [facility] [address] [facility] [address] [place] [phone] Carline Alejo MA Gel injection scheduling 02/06/2025 8:30 AM EDT Office Visit Orthopedic Surgery [facility] [address] [facility] [address] [place] [phone] Nichelle Archibald PA Acute pain of left shoulder (Primary Dx) 02/05/2025 10:22 AM EDT - 02/05/2025 11:59 PM EDT [facility] [address] [phone] Encounter for screening mammogram for malignant neoplasm of breast Discharge Disposition: Home or Self Care 02/04/2025 7:42 AM EDT Hospital Encounter [facility] [address] [place] [address] Tutu Trivedi MD Radiculopathy, lumbar region 02/04/2025 6:58 AM EDT - 02/04/2025 11:59 PM EDT Hospital Encounter [facility] Xray [address] [place] [phone] Pain Discharge Disposition: Home or Self Care 01/24/2025 7:28 AM EDT - 01/24/2025 11:59 PM EDT Hospital Encounter [facility] Ultrasound [address] [place] [phone] Cervicalgia Discharge Disposition: Home or Self Care 01/24/2025 7:27 AM EDT - 01/24/2025 11:59 PM EDT Hospital Encounter [facility] CT Scan [address] [place] [address] Polyp of nasal cavity; Deviated nasal septum Discharge Disposition: Home or Self Care 01/22/2025 8:00 AM EDT Office Visit Orthopedic Surgery [facility] [address] [phone] Von Mcclure MD Follow-up exam (Primary Dx); Fibromyalgia; Post-traumatic osteoarthritis of left knee; Primary osteoarthritis of right knee; Rheumatoid arthritis involving multiple sites with positive rheumatoid factor ([facility]) 01/21/2025 7:59 AM EDT - 01/21/2025 11:59 PM EDT Hospital Encounter [facility] [address] [place] [address] Tutu Trivedi MD Radiculopathy, cervical region Discharge Disposition: Home or Self Care 01/16/2025 8:31 AM EDT - 01/16/2025 11:[address] [facility] Emergency [address] [place] [address] Stephanie Nnia DO Generalized abdominal pain (Primary Dx) Discharge Disposition: Home or Self Care 01/08/2025 9:00 AM EST Consult Orthopedic Surgery - [address] [place] [address] Nichelle Archibald PA Arthritis of right shoulder region (Primary Dx); Pain in unspecified shoulder; Calcific tendinitis of both shoulders 01/08/2025 Telephone Neurosurgery [address] [phone] Peggy Leon MD Advice Only (Epidural opinion) 01/03/[address] [address] [facility] [place] 12/27/2024 3:00 PM EST Office Visit Neurosurgery [address] [phone] Peggy Leon MD Cervical spondylosis (Primary Dx); Acute bilateral low back pain with bilateral sciatica 12/26/2024 8:11 AM EST - 12/26/2024 11:59 PM EST Hospital Encounter [facility] Xray [address] [place] [address] Dysphagia, unspecified Discharge Disposition: Home or Self Care 12/16/2024 Telephone Neurosurgery [address] [phone] [facility] [place] 12/14/2024 2:01 PM EST - 12/14/2024 9:[address] [facility] Emergency [address] [place] [address] Acute bilateral low back pain, unspecified whether sciatica present (Primary Dx); Tingling in extremities Discharge Disposition: Home or Self Care 12/05/2024 2:30 PM EST - 12/05/2024 9:[address] [facility] Emergency [address] [place] [phone] Pain of right hip (Primary Dx) Discharge Disposition: Home or Self Care 11/27/2024 Telephone Orthopedic Surgery [facility] 250 175 [facility] 250 [place] [phone] Nichelle Archibald PA Arm Pain 11/20/2024 8:40 AM EST Office Visit Gastroenterology [facility] 175 [facility] 175 [facility] [address] [place] [phone] Rajan Sanders PA Slipped rib syndrome (Primary Dx); Right flank pain; Globus sensation; Epigastric pain; Passage of loose stools 11/20/2024 Telephone Gastroenterology [facility] 175 [facility] [address] [phone] Rajan Sanders PA 11/20/2024 Telephone Gastroenterology [facility] [address] [phone] Rajan Sanders PA Medication Problem 11/20/2024 Telephone Gastroenterology [facility] 175 [facility] [address] [phone] Rajan Sanders PA 11/20/2024 Telephone Gastroenterology [facility] [address] [phone] Rajan Sanders PA Prior Authorization 11/19/2024 Telephone Neurosurgery [facility] [address] [phone] Vanesa Lebron PA 11/18/2024 12:22 PM EST - 11/18/2024 11:59 PM EST Hospital Encounter [facility] Neurodiagnostic [address] [place] [phone] Paresthesias in right hand; Neck pain Discharge Disposition: Home or Self Care 11/18/2024 12:22 PM EST - 11/18/2024 11:59 PM EST Hospital Encounter [facility] Xray [address] [place] [phone] Chest pain, unspecified; Pain in right arm; Paresthesia of skin Discharge Disposition: Home or Self Care 11/18/2024 Telephone Orthopedic Surgery [facility] 250 175 [facility] 250 [place] [address] Nichelle Archibald PA 11/11/2024 10:45 AM EST Office Visit Orthopedic [facility] 175 [facility] 140 [place] [address] Nichelle Archibald PA Pain in both upper extremities (Primary Dx) from Last 3 Months Immunizations Name Administration Dates Next Due Hepatitis B (Mgecwzo-Z-Qvxgo , Recombivax HB-Adult) 19yo and older 02/21/2022,01/17/2022 [...] tissue CARPAL TUNNEL RELEASE 01/20/2020 Right PROCEDURE: ME NEUROPLASTY &/TRANSPOS MEDIAN NRV CARPAL TUNNE COLONOSCOPY OTHER SURGICAL HISTORY 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 [facility] WRIST SURGERY 11/06/2021 - 11/05/2022 Left scapholunate [...] Info) Description 02/08/2025 12:[address] [facility] Ultrasound [address] [place] [phone] 04/10/2025 11:00 AM EDT Telemedicine [facility] 175 [facility] [address] [place] [address] Mary Manzanares MD [address] [place] [address] Health Maintenance Due Date Last Done Comments Zoster Vaccines (1 of 2) 2017 Hepatitis B Vaccines (3 of 3 - 19+ 3-dose series) 07/20/2022 02/21/2022, 01/17/2022 Colorectal Cancer Screening: Stool Based Tests (FOBT/FIT) 10/09/2022 Depression Screening 10/09/2022 Social Influencers of Health Screening 10/09/2022 COVID-19 Vaccine ( season) 2024 02/02/2022, 07/05/2021, 06/24/2021, Additional history exists Breast Cancer Screening 02/05/2027 02/06/20 25, 06/05/2023, 02/27/2019, Additional history exists Cervical Cancer [...] Polyp of nasal cavity Deviated nasal septum ME ARTHROCENTESIS/ASPIR ATION/INJECTION MAJOR JOINT/BURSA W/O U/S GUIDANCE [...] year. Mammo Location: [facility], [address] [place] [address], [phone], . -------- FINAL REPORT -------- Dictated By: Stefani Zamora Dictated Date: 02/06/2025 09:43 ET Assigned Physician: Stefani Zamora Reviewed and Electronically Signed By: Stefani Zamora Signed Date: 02/06/2025 09:45 ET Workstation ID: [id number] Transcribed By: Self Edit Transcribed Date: 02/06/2025 [...] year. Mammo Location: [facility], [address] [place] [address], [phone], . -------- FINAL REPORT -------- Dictated By: Stefani Zamora Dictated Date: 02/06/2025 09:43 ET Assigned Physician: Stefani Zamora Reviewed and Electronically Signed By: Stefani Zamora Signed Date: 02/06/2025 09:45 ET Workstation ID: [id number] Transcribed By: Self Edit Transcribed Date: 02/06/2025 09:43 ET Araceli BOOTHE IM BI PROCEDURES Final Result * XR Fluoro [...] Signed Date: 02/04/2025 12:53 ET Workstation ID: [id number] Transcribed By: Self Edit Transcribed Date: 02/04/2025 [...] Signed Date: 02/04/2025 12:53 ET Workstation ID: [id number] Transcribed By: Self Edit Transcribed Date: 02/04/2025 [...] Signed Date: 01/24/2025 08:00 ET Workstation ID: [id number] Transcribed By: Self Edit Transcribed Date: 01/24/2025 [...] Signed Date: 01/24/2025 08:00 ET Workstation ID: [id number] Transcribed By: Self Edit Transcribed Date: 01/24/2025 07:55 ET Irais BOOTHE IMG US PROCEDURES Final R [...] Signed Date: 01/24/2025 08:42 ET Workstation ID: [id number] Transcribed By: Self Edit Transcribed Date: 01/24/2025 [...] Signed Date: 01/24/2025 08:42 ET Workstation ID: [id number] Transcribed By: Self Edit Transcribed Date: 01/24/2025 08:15 ET [facility] Genaro Mahoney MD IMG CT PROCEDURES Final Res ult * ME ARTHROCENTESIS/ASPIRATION/INJECTION MAJOR JOINT/BURSA W/O U/S GUIDANCE (01/22/2025 [...] ?? Verbal ??Pre-procedure timeout performed: yes ?? Von Mcclure MD IN CLINIC/BEDSIDE ORD ERABLES [...] resultswithin the time period is included. Specific [place] Urine 1.034(H) 1.003 - 1.030 LAB URINALYSIS - AUTOMATED METHOD 01/16/2025 12:26 PM [facility] pH, Urine 6.5 5.0 - 8.0 pH LAB URINALYSIS - AUTOMATED METHOD 01/16/2025 12:26 PM [facility] Leukocytes, Urine Negative Negative LAB URINALYSIS - AUTOMATED METHOD 01/16/2025 12:26 PM [facility] Nitrite, Urine Negative Negative LAB URINALYSIS - AUTOMATED METHOD 01/16/2025 12:26 PM [facility] Protein, Urine Trace <=Trace mg/dL LAB URINALYSIS - AUTOMATED METHOD 01/16/2025 12:26 PM [facility] Glucose, Urine Negative Negative mg/dL LAB URINALYSIS - AUTOMATED METHOD 01/16/2025 12:26 PM [facility] Ketones, Urine Negative Negative mg/dL LAB URINALYSIS - AUTOMATED METHOD 01/16/2025 12:26 PM [facility] Urobilinogen, Urine 0.2 0.2 - 1.0 mg/dL LAB URINALYSIS - AUTOMATED METHOD 01/16/2025 12:26 PM [facility] Bilirubin, Urine Negative Negative LAB URINALYSIS - AUTOMATED METHOD 01/16/2025 12:26 PM [facility] Blood, Urine Negative Negative LAB URINALYSIS - AUTOMATED METHOD 01/16/2025 12:26 PM [facility] Urine Urine specimen obtained by clean catch procedure / Unknown Non-blood Collection / Unknown 01/16/2025 11:08 AM EDT 01/16/2025 12:11 PM EDT us Stephanie Nina DO LAB URINE ORDERABLES Nataliia l Result Performing Organization Address [facility]/ZIP Co de Phone Number [facility] [address] [place] [address], [place] [phone] * [place] urine culture tube (01/16/2025 11:08 AM EDT) Only the most recent of2 resultswithin the time period is included. Extra Tube Hold for add-ons. 01/16/2025 2:01 PM EDT [facility] Comment:Auto resulted. Urine Urine specimen obtained by clean catch procedure / Unknown Non-blood Collection / Unknown 01/16/2025 11:08 AM EDT 01/16/2025 12:11 PM EDT us Stephanie Nina DO LAB URINE ORDERABLES Nataliia l Result Performing Organization Address [facility] Co de Phone Number [facility] [address] [place] [address], [place] [phone] * CT Abdomen Pelvis w Contrast (01/16/2025 [...] Signed Date: 01/16/2025 10:48 ET Workstation ID: [id number] Transcribed By: Self Edit Transcribed Date: 01/16/2025 [...] Signed Date: 01/16/2025 10:48 ET Workstation ID: [id number] Transcribed By: Self Edit Transcribed Date: 01/16/2025 10:43 ET us Stephanie Nina DO IMG CT PROCEDURES Final R esult * Thyroid stimulating hormone with reflex to free t4 and free t3 (TSH Reflex) (01/16/2025 7:18 AM EDT) TSH 2.08 0.40 - 4.00 mcIU/mL LAB CHEMISTRY METHOD 01/16/2025 10:37 AM EDT [facility] Blood Venous blood specimen / Unknown Venipuncture / Unknown 01/16/2025 7:18 AM EDT 01/16/2025 7:55 AM EDT us Stephanie Nina DO LAB BLOOD ORDERABLES Nataliia l Result [facility] [address] [place] [address], [place] [phone] * (ABNORMAL) CBC auto differential (01/16/2025 7:18 AM EDT) Only the most recent of3 resultswithin the time period is included. [facility] Signature WBC 7.7 4.8 - 10.8 K/mcL LAB HEMETOLOGY METHOD 01/16/2025 8:02 AM [facility] RBC 4.40 3.80 - 4.80 M/mcL LAB HEMETOLOGY METHOD 01/16/2025 8:02 AM [facility] Hemoglobin 14.3 11.5 - 16.0 g/dL LAB HEMETOLOGY METHOD 01/16/2025 8:02 AM [facility] Hematocrit 41.5 35.0 - 47.0 % LAB HEMETOLOGY METHOD 01/16/2025 8:02 AM [facility] MCV 93.7 79.0 - 98.0 FL LAB HEMETOLOGY METHOD 01/16/2025 8:02 AM [facility] MCH 32.3(H) 27.0 - 32.0 pcg LAB HEMETOLOGY METHOD 01/16/2025 8:02 AM [facility] MCHC 34.5 32.0 - 37.0 g/dL LAB HEMETOLOGY METHOD 01/16/2025 8:02 AM [facility] RDW 12.9 11.0 - 15.0 % LAB HEMETOLOGY METHOD 01/16/2025 8:02 AM [facility] Platelets 310 130 - 400 K/mcL LAB HEMETOLOGY METHOD 01/16/2025 8:02 AM [facility] MPV 9.8 7.0 - 11.0 FL LAB HEMETOLOGY METHOD 01/16/2025 8:02 AM [facility] NRBC 0.0 <1.0 % LAB HEMETOLOGY METHOD 01/16/2025 8:02 AM [facility] NRBC Absolute 0.00 <0.10 K/mcL LAB HEMETOLOGY METHOD 01/16/2025 8:02 AM [facility] Neutrophils Relative 48.2 % LAB HEMETOLOGY METHOD 01/16/2025 8:02 AM [facility] Lymphocytes Relative 36.7 % LAB HEMETOLOGY METHOD 01/16/2025 8:02 AM [facility] Monocytes Relative 9.1 % LAB HEMETOLOGY METHOD 01/16/2025 8:02 AM [facility] Eosinophils Relative 5.2 % LAB HEMETOLOGY METHOD 01/16/2025 8:02 AM [facility] Basophils Relative 0.5 % LAB HEMETOLOGY METHOD 01/16/2025 8:02 AM [facility] Immature Granulocytes Relative 0.3 % LAB HEMETOLOGY METHOD 01/16/2025 8:02 AM [facility] Neutrophils Absolute 3.73 1.50 - 7.00 K/mcL LAB HEMETOLOGY METHOD 01/16/2025 8:02 AM [facility] Lymphocytes Absolute 2.83 1.00 - 5.00 K/mcL LAB HEMETOLOGY METHOD 01/16/2025 8:02 AM [facility] Monocytes Absolute 0.70 0.20 - 1.00 K/mcL LAB HEMETOLOGY METHOD 01/16/2025 8:02 AM [facility] Eosinophils Absolute 0.40 0.00 - 0.50 K/mcL LAB HEMETOLOGY METHOD 01/16/2025 8:02 AM [facility] Basophils Absolute 0.04 0.00 - 0.20 K/mcL LAB HEMETOLOGY METHOD 01/16/2025 8:02 AM [facility] Immature Granulocytes Absolute 0.02 0.00 - 0.03 K/mcL LAB HEMETOLOGY METHOD 01/16/2025 8:02 AM [facility] Blood Venous blood specimen / Unknown Venipuncture / Unknown 01/16/2025 7:18 AM EDT 01/16/2025 7:55 AM EDT us Roberto Carlos Marie MD LAB BLOOD ORDERABLES Final Resu lt Performing Organization Address [facility]/ZIP Co de Phone Number [facility] [address] [place] [address], [place] [phone] * Lipase (01/16/2025 7:18 AM EDT) Pathologist [facility] Lipase 18 13 - 75 unit/L LAB CHEMISTRY METHOD 01/16/2025 8:42 AM EDT [facility] Blood Venous blood specimen / Unknown Venipuncture / Unknown 01/16/2025 7:18 AM EDT 01/16/2025 7:55 AM EDT us Roberto Carlos Marie MD LAB BLOOD ORDERABLES Final Resu lt Performing Organization Address [facility]/ZIP Co de Phone Number [facility] [address] [place] [address], [place] [phone] * (ABNORMAL) Comprehensive metabolic panel (01/16/2025 7:18 AM EDT) [facility] Sodium 138 133 - 145 mmol/L LAB CHEMISTRY METHOD 01/16/2025 8:42 AM EDT [facility] Potassium 4.5 3.5 - 5.5 mmol/L LAB CHEMISTRY METHOD 01/16/2025 8:42 AM EDT [facility] Chloride 103 96 - 110 mmol/L LAB CHEMISTRY METHOD 01/16/2025 8:42 AM EDT [facility] CO2 29 21 - 32 mmol/L LAB CHEMISTRY METHOD 01/16/2025 8:42 AM EDT [facility] Anion Gap 6 3 - 11 LAB CHEMISTRY METHOD 01/16/2025 8:42 AM EDT [facility] Glucose 108(H) 70 - 100 mg/dL LAB CHEMISTRY METHOD 01/16/2025 8:42 AM [facility] BUN 9 5 - 25 mg/dL LAB CHEMISTRY METHOD 01/16/2025 8:42 AM [facility] Creatinine 0.85 0.50 - 1.10 mg/dL LAB CHEMISTRY METHOD 01/16/2025 8:42 AM [facility] eGFR 80 >=60 mL/min/1. 73m2 LAB CHEMISTRY METHOD 01/16/2025 8:42 AM [facility] Comment:Calculation based on the??Chronic Kidney Disease Epidemiology Collaboration (CKD-EPI) equation refit??without adjustment for race. BUN/Creatinine Ratio 10.6 LAB CHEMISTRY METHOD 01/16/2025 8:42 AM [facility] Calcium 9.7 8.5 - 10.5 mg/dL LAB CHEMISTRY METHOD 01/16/2025 8:42 AM [facility] AST (SGOT) 18 10 - 42 unit/L LAB CHEMISTRY METHOD 01/16/2025 8:42 AM [facility] ALT (SGPT) 22 10 - 60 unit/L LAB CHEMISTRY METHOD 01/16/2025 8:42 AM [facility] Alkaline Phosphatase 113 42 - 121 unit/L LAB CHEMISTRY METHOD 01/16/2025 8:42 AM [facility] Total Protein 7.5 6.0 - 8.0 g/dL LAB CHEMISTRY METHOD 01/16/2025 8:42 AM [facility] Albumin 4.1 3.2 - 5.0 g/dL LAB CHEMISTRY METHOD 01/16/2025 8:42 AM [facility] Total Bilirubin 0.5 0.0 - 1.4 mg/dL LAB CHEMISTRY METHOD 01/16/2025 8:42 AM [facility] Blood Venous blood specimen / Unknown Venipuncture / Unknown 01/16/2025 7:18 AM EDT 01/16/2025 7:55 AM EDT us Roberto Carlos Marie MD LAB BLOOD ORDERABLES Final Resu lt [facility] [address] [place] [address], [place] [phone] * XR Shoulder 2+ Views bilat (01/08/2025 [...] Signed Date: 12/27/2024 08:28 ET Workstation ID: [id number] Transcribed By: Self Edit Transcribed Date: 12/26/2024 13:36 ET Resident/PA/SITE LEADER: Lidia Escamilla Narrative 12/27/2024 8:28 AM EST FINDINGS: Double contrast esophagram performed. COMPARISON: Esophagram March 04, 2022 HISTORY: Patient is a 59-year-old female with history of globus sensation. Epigastric pain. Production Line radiographs: 1 view chest radiograph demonstrates cardiac [...] female with history of globus sensation.Epigastric pain. Production Line radiographs: 1 view chest radiograph demonstrates cardiac [...] Signed Date: 12/27/2024 08:28 ET Workstation ID: [id number] Transcribed By: Self Edit Transcribed Date: 12/26/2024 13:36 ET Resident/PA/SITE LEADER: Lidia Escamilla Js Mahoney MD IMG FLUOROSCOPY [...] Signed Date: 12/15/2024 07:42 ET Workstation ID: [id number] Transcribed By: Self Edit Transcribed Date: 12/15/2024 [...] Signed Date: 12/15/2024 07:42 ET Workstation ID: [id number] Transcribed By: Self Edit Transcribed Date: 12/15/2024 [...] GEMUSE QTc 445 ms GEMUSE P Wave [place] 40 degrees GEMUSE R [place] 6 degrees GEMUSE T [place] 26 degrees GEMUSE ECG Interpretation Normal sinus [...] the time period is included. Pathologist [facility] Adenovirus Detection by PCR Not Detected Not Detected LAB MICROBIOLOGY METHOD 12/14/2024 5:56 PM EST [facility] Influenza A PCR Not Detected Not Detected LAB MICROBIOLOGY METHOD 12/14/2024 5:56 PM EST [facility] Influenza B PCR Not Detected Not Detected LAB MICROBIOLOGY METHOD 12/14/2024 5:56 PM EST [facility] Coronavirus 229E Not Detected Not Detected LAB MICROBIOLOGY METHOD 12/14/2024 5:56 PM [facility] Coronavirus HKU1 Not Detected Not Detected LAB MICROBIOLOGY METHOD 12/14/2024 5:56 PM [facility] Coronavirus OC43 Not Detected Not Detected LAB MICROBIOLOGY METHOD 12/14/2024 5:56 PM [facility] Coronavirus NL63 Not Detected Not Detected LAB MICROBIOLOGY METHOD 12/14/2024 5:56 PM [facility] Parainfluenza Virus 1 Not Detected Not Detected LAB MICROBIOLOGY METHOD 12/14/2024 5:56 PM [facility] Parainfluenza Virus 2 Not Detected Not Detected LAB MICROBIOLOGY METHOD 12/14/2024 5:56 PM [facility] Parainfluenza Virus 3 Not Detected Not Detected LAB MICROBIOLOGY METHOD 12/14/2024 5:56 PM [facility] Parainfluenza Virus 4 Not Detected Not Detected LAB MICROBIOLOGY METHOD 12/14/2024 5:56 PM [facility] RSV PCR Not Detected Not Detected LAB MICROBIOLOGY METHOD 12/14/2024 5:56 PM [facility] Human Metapneumovirus A and B Not Detected Not Detected LAB MICROBIOLOGY METHOD 12/14/2024 5:56 PM [facility] Rhinovirus/Entero virus Not Detected Not Detected LAB MICROBIOLOGY METHOD 12/14/2024 5:56 PM EST [facility] Bordetella pertussis Not Detected Not Detected LAB MICROBIOLOGY METHOD 12/14/2024 5:56 PM EST [facility] Bordetella parapertussis Not Detected Not Detected LAB MICROBIOLOGY METHOD 12/14/2024 5:56 PM [facility] Mycoplasma pneumo by PCR Not Detected Not Detected LAB MICROBIOLOGY METHOD 12/14/2024 5:56 PM [facility] Chlamydia pneumoniae Not Detected Not Detected LAB MICROBIOLOGY METHOD 12/14/2024 5:56 PM [facility] SARS COV-2 Not Detected Not Detected LAB MICROBIOLOGY METHOD 12/14/2024 5:56 PM [facility] Swab Both anterior nares / Unknown Non-blood Collection / Unknown 12/14/2024 4:28 PM EST 12/14/2024 4:34 PM EST [facility] - 12/14/2024 5:56 PM EST Testing was performed using the [employer] Respiratory Pathogen PCR Assay. All results must [...] are below the limit of detection. us Yota Jun BOOTHE LAB MICROBIOLOGY - GENERAL ORDER KAILASH Final Result [facility] [address] [place] [address], * Phosphorus (12/14/2024 12:01 PM EST) Phosphorus 3.5 2.5 - 4.5 mg/dL LAB CHEMISTRY METHOD 12/14/2024 4:31 PM EST [facility] Blood Venous blood specimen / Unknown Venipuncture / Unknown 12/14/2024 12:01 PM EST 12/14/2024 12:24 PM EST Dwight BOOTHE LAB BLOOD ORDERABLES Final Resul t Performing Organization Address City/[facility]/ZIP Co de Phone Number [facility] [address] [place] [address], [place] [phone] * Magnesium (12/14/2024 12:01 PM EST) Only the most recent of2 resultswithin the time period is included. Pathologist [facility] Magnesium 2.0 1.9 - 2.6 mg/dL LAB CHEMISTRY METHOD 12/14/2024 12:51 PM [facility] Blood Venous blood specimen / Unknown Venipuncture / Unknown 12/14/2024 12:01 PM EST 12/14/2024 12:24 PM EST Pepe Mar DO LAB BLOOD ORDERABLES Final Result Performing Organization Address City/[facility] [place]/ZIP Co de Phone Number [facility] [address] [place] [address], [place] [phone] * (ABNORMAL) Basic metabolic panel (12/14/2024 12:01 PM EST) Only the most recent of2 resultswithin the time period is included. Sodium 138 133 - 145 mmol/L LAB CHEMISTRY METHOD 12/14/2024 12:59 PM [facility] Potassium 4.5 3.5 - 5.5 mmol/L LAB CHEMISTRY METHOD 12/14/2024 12:59 PM [facility] Chloride 106 96 - 110 mmol/L LAB CHEMISTRY METHOD 12/14/2024 12:59 PM [facility] CO2 28 21 - 32 mmol/L LAB CHEMISTRY METHOD 12/14/2024 12:59 PM [facility] Anion Gap 4 3 - 11 LAB CHEMISTRY METHOD 12/14/2024 12:59 PM [facility] Glucose 119(H) 70 - 100 mg/dL LAB CHEMISTRY METHOD 12/14/2024 12:59 PM [facility] BUN 13 5 - 25 mg/dL LAB CHEMISTRY METHOD 12/14/2024 12:59 PM [facility] Creatinine 0.82 0.50 - 1.10 mg/dL LAB CHEMISTRY METHOD 12/14/2024 12:59 PM [facility] eGFR 84 >=60 mL/min/1. 73m2 LAB CHEMISTRY METHOD 12/14/2024 12:59 PM [facility] Comment:Calculation based on the??Chronic Kidney Disease Epidemiology Collaboration (CKD-EPI) equation refit??without adjustment for race. BUN/Creatinine Ratio 15.9 LAB CHEMISTRY METHOD 12/14/2024 12:59 PM [facility] Calcium 9.6 8.5 - 10.5 mg/dL LAB CHEMISTRY METHOD 12/14/2024 12:59 PM [facility] Blood Venous blood specimen / Unknown Venipuncture / Unknown 12/14/2024 12:01 PM EST 12/14/2024 12:24 PM EST Pepe Mar DO LAB BLOOD ORDERABLES Final Result [facility] [address] [place] [address], * ECG-Annotated (12/14/2024) us Provider Onbase MD [...] Garcia MD on 12/05/2024 18:18:35 Shay BOOTHE [facility] PROCEDURES Final R esult * Borrelia burgdorferi antibody (12/05/2024 1:30 PM EST) [facility] Lyme Ab Negative Negative LAB CHEMISTRY METHOD 12/06/2024 9:08 AM EST [facility] Comment: No laboratory evidence of [...] lt Performing Organization Address [facility]/ZIP Co de Phone Number [facility] [address] [place] [address], [place] [phone] * Sedimentation rate, automated (12/05/2024 1:30 PM EST) [facility] Sed Rate 20 0 - 30 mm/hr LAB HEMETOLOGY METHOD 12/05/2024 1:59 PM EST [facility] Blood Venous blood specimen / Unknown Venipuncture / Unknown 12/05/2024 1:30 PM EST 12/05/2024 1:39 PM EST us Jewel Hernández MD LAB BLOOD ORDERABLES Final Resu lt Performing Organization Address [facility] Co de Phone Number [facility] [address] [place] [address], [place] [phone] * C-reactive protein (12/05/2024 1:30 PM EST) [facility] C-Reactive Protein <0.29 <=0.50 mg/dL LAB CHEMISTRY METHOD 12/05/2024 2:05 PM EST [facility] Blood Venous blood specimen / Unknown Venipuncture / Unknown 12/05/2024 1:30 PM EST 12/05/2024 1:39 PM EST us Jewel Hernández MD LAB BLOOD ORDERABLES Final Resu lt Performing Organization Address [facility] [place]/[facility] Co de Phone Number [facility] [address] [place] [address], [place] [phone] * Creatine kinase (12/05/2024 1:30 PM EST) [facility] Total CK 80 22 - 269 unit/L LAB CHEMISTRY METHOD 12/05/2024 2:05 PM EST [facility] Blood Venous blood specimen / Unknown Venipuncture / Unknown 12/05/2024 1:30 PM EST 12/05/2024 1:39 PM EST us Jewel Hernández MD LAB BLOOD ORDERABLES Final Resu lt [facility] ([facility] [address] [place] [address], [place] [phone] * EMG one limb (11/18/2024 1:17 PM [...] to the prior neck CTA. [place] ([id number]) -------- FINAL REPORT -------- Dictated By: Dayami Diehl Dictated Date: 11/19/2024 13:40 ET Assigned Physician: Dayami Diehl Reviewed and Electronically Signed By: Dayami Diehl Signed Date: 11/19/2024 13:45 ET Workstation ID: [id number] Transcribed By: Self Edit Transcribed Date: 11/19/2024 [...] narrowing, similar to the prior [place] ([id number]) -------- FINAL REPORT -------- Dictated By: Dayami Diehl Dictated Date: 11/19/2024 13:40 ET Assigned Physician: Dayami Diehl Reviewed and Electronically Signed By: Dayami Diehl Signed Date: 11/19/2024 13:45 ET Workstation ID: [id number] Transcribed By: Self Edit Transcribed Date: 11/19/2024 13:40 ET Araceli BOOTHE IMG XR PROCEDURES Final Result * Lipid panel with reflex to direct LDL (10/28/2024 2:36 PM EST) [facility] Cholesterol 196 0 - 200 mg/dL LAB CHEMISTRY METHOD 10/28/2024 4:17 PM EST [facility] Triglycerides 51 0 - 150 mg/dL LAB CHEMISTRY METHOD 10/28/2024 4:17 PM EST [facility] HDL 111 >=40 mg/dL LAB CHEMISTRY METHOD 10/28/2024 4:17 PM EST [facility] LDL Calculated 75 0 - 100 mg/dL LAB CHEMISTRY METHOD 10/28/2024 4:17 PM [facility] VLDL Cholesterol Corby 10.2 mg/dL LAB CHEMISTRY METHOD 10/28/2024 4:17 PM EST [facility] Non HDL Chol. (LDL+VLDL) 85 <145 mg/dL LAB CHEMISTRY METHOD 10/28/2024 4:17 PM EST [facility] Chol/HDL Ratio 1.8 0.0 - 4.4 LAB CHEMISTRY METHOD 10/28/2024 4:17 PM [facility] Blood Venous blood specimen / Unknown Venipuncture / Unknown 10/28/2024 2:36 PM EST 10/28/2024 3:06 PM EST Araceli BOOTHE LAB BLOOD ORDERABLES Fin al Result [facility] [address] [place] [address], * HIV Screening (05/20/2024) Pathologist [facility] HIV Screening abstracted Historical Provider HEALTH MAINTENANCE Final Result * Hepatitis C Screening (05/20/2024) [facility] Hepatitis C Screening abstracted Historical Provider HEALTH MAINTENANCE Final Result * Colonoscopy (08/15/2023) Colonoscopy no interpreta tion,abstr acted Anatomical Region Laterality Modality Other Historical Provider HEALTH MAINTENANCE Final Result * Cervical Cancer Screening: HPV (07/20/2023) Pathologist [facility] Cervical Cancer Screening: HPV no interpreta tion,abstr acted Historical Provider HEALTH MAINTENANCE Final Result from Last 3 Months or Most Recently Relevant to Health Maintenance Insurance [facility] Care Teams Flower Planter Relationship Specialty Start Date End Date Araceli Augustin PA [address] [phone] PCP - General 11/20/24
--- OUTSIDE RECORDS SUMMARY | 2025-02-07 15:03 | XMS_ITS | Patient Health Record ---
Author Organization [facility] Address [address] [place] [address] Care Team Providers Care Classifier Tender Name Role Phone IKER ROBLERO PA-C Primary Care Provider Unav bianca LozanoLatonya lopez Unavailable [phone] Allergies Allergen (clinical drug ingredient) Drug/Non Drug Allergy documented on EMR Reaction Allergy Type Onset Date Status erythromycin ERYTHROMYCIN Skin Rash Drug Allergy A ctive Results Component Value Reference Range Notes Urinalysis Reviewed date:10/14/2024 01:33:35 PM Interpretation: Performing Lab: Notes/Report: PH 8.0 PROTEIN Neg GLUCOSE Neg BLOOD Neg Vitamin B1 (Thiamine), Blood -[id number] Reviewed date:12/14/2024 02:48:18 PM Interpretation: Performing Lab:[facility] [place], [address] [facility], Phone - [phone], Director - Elsa Notes/Report: Test(s) 795721-Qqc. B1, Whole Blood was developed and its performance characteristics determined by [facility]. It has not been cleared or approved by the Food and Drug Administration. Vit. B1, Whole Blood 131.3 66.5-200.0 nmol/L Vitamin D, 49-Leshieh-989704 Reviewed date:12/14/2024 02:47:53 PM Interpretation: Performing Lab:[facility] [place], [address] [facility] [place], Phone - [phone], Director - Elsa Notes/Report: Test(s) 759455-Syn. B1, Whole Blood was developed and its performance characteristics determined by [facility]. It has not been cleared or approved by the Food and Drug Administration. Vitamin D, 25-Hydroxy 48.0 30.0-100.0 ng/mL Vitamin D deficiency has been defined by the [place] of Medicine and an Endocrine Society practice guideline as a level of serum 25-OH vitamin D less than 20 ng/mL (1,2). The Endocrine Society went on to further define vitamin D insufficiency as a level between 21 and 29 ng/mL (2). 1. IOM ([place] of [employer]). 2010. Dietary reference intakes for calcium and D. [place]: The National AcademMobileSnack Press. 2. Angelica MF, Leonel NC, Sheeba MCKENNA, et al. Evaluation, treatment, and prevention of vitamin D deficiency: an Endocrine Society clinical practice guideline. JCEM. 2010; 96(7):1911-30. Triiodothyronine (T3), Free- 284636 Reviewed date:12/14/2024 02:48:08 PM Interpretation: Performing Lab:[facility] [address], Phone - [phone], [facility] Notes/Report: Test(s) 561059-Gzv. B1, Whole Blood was developed and its performance characteristics determined by [facility]. It has not been cleared or approved by the Food and Drug Administration. Triiodothyronine (T3), Free 2.9 2.0-4.4 pg/mL TSH-[id number] Reviewed date:12/14/2024 02:48:55 PM Interpretation: Performing Lab:[facility] [address], Phone - [phone], Director - [facility] Notes/Report: Test(s) 906330-Dmu. B1, Whole Blood was developed and its performance characteristics determined by [facility]. It has not been cleared or approved by the Food and Drug Administration. TSH 0.492 0.450-4.500 uIU/mL Thyroxine (T4) Free, Direct- 542630 Reviewed date:12/14/2024 02:48:28 PM Interpretation: Performing Lab:[facility] [address], Phone - [phone], Director - [facility] Notes/Report: Test(s) 177315-Dfk. B1, Whole Blood was developed and its performance characteristics determined by [facility]. It has not been cleared or approved by the Food and Drug Administration. T4,Free(Direct) 1.16 0.82-1.77 ng/dL Vitamin N15-883759 Reviewed date:12/14/2024 02:48:01 PM Interpretation: Performing Lab:[facility], [address] [facility], Phone - [phone], Director - Elsa Notes/Report: Test(s) 492738-Flq. B1, Whole Blood was developed and its performance characteristics determined by [facility]. It has not been cleared or approved by the Food and Drug Administration. Vitamin B12 815 470-0878 pg/mL PDF Report Reviewed date:12/14/2024 02:47:46 PM Interpretation: Performing Lab:[facility], [facility], Phone - [phone], Director - Elsa Notes/Report: Test(s) 107618-Kzz. B1, Whole Blood was developed and its performance characteristics determined by [employer]. It has not been cleared or approved [...] Gabapentin 100 MG TAKE 1 CAPSULE BY [facility] 3 TIMES A DAY Oral for 30 [...] test positive, high risk on vaginal specimen (330314308095418) Cervical high risk human papillomavirus (HPV) DNA test positive (R87.810) Active confirmed Problem Postmenopausal atrophic vaginitis (44044219) Postmenopausal atrophic vaginitis (N95.2) Active confirmed Problem Cervicovaginal cytology: Low grade squamous intraepithelial lesion (627543300) Low grade squamous intraepithelial lesion on cytologic smear of cervix (LGSIL) (R87.612) Active confirmed Problem Non-toxic single thyroid nodule (589674488) Nontoxic single thyroid nodule (E04.1) Active confirmed Problem Autoimmune thyroiditis (70859552) Autoimmune thyroiditis (E06.3) Active confirmed Problem Anxiety disorder (167350296) Anxiety disorder, unspecified (F41.9) Active confirmed Problem Epidermal cyst (661440161) Epidermal cyst (L72.0) Active confirmed Problem Rheumatoid arthritis (90380848) Rheumatoid arthritis, unspecified (M06.9) Active confirmed Problem Endometrial intraepithelial neoplasia (137751631) 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) Active confirmed Problem Postcoital bleeding (14547884) Postcoital and contact bleeding (N93.0) Active confirmed Problem Unspecified abnormal finding in specimens from female genital organs (R87.9) Active confirmed Problem Menopause (779619498) Menopausal and female climacteric states (N95.1) Active confirmed Problem Anxiety state (969662208) Anxiety state, unspecified (300.00) Active confirmed Major Vital Signs Temperature 97.4 degrees Fahrenheit 12/09/2024 Blood pressure diastolic 86 mm Hg 12/09/2024 Height 62 in 12/09/2024 Blood pressure systolic 128 mm Hg 12/09/2024 Weight 159 lbs 12/09/2024 BMI 29.08 kg/m2 12/09/2024 Encounters Encounter Location Date Provider Diagnosis [place] [address] [address] [address] 05/31/2024 Latonya Lozano [place] [address] [address] 12/05/2024 Latonya Lozano [place] [address] [address] 10/14/2024 Latonya Lozano Encounter for gynecological examination (general) (routine) without abnormal findings Z01.419 ; Encounter for screening mammogram for malignant neoplasm of breast Z12.31 ; Personal history of other diseases of the female genital tract Z87.42 ; Cervical high risk human papillomavirus (HPV) DNA test positive R87.810 and Postmenopausal atrophic vaginitis N95.[address] [address] 12/09/2024 Latonya Lozano Other fatigue R53.83 and Menopausal and female climacteric states N95.[address] [address] 12/03/2024 Latonya Lozano [address] [address] 12/12/2024 Latonya Lozano [address] [address] 01/22/2025 Latonya Lozano Assessments Encounter Date Diagnosis (ICD [...] AND NEEDS TESTOSTERONE THERAPY, WILL REFER TO [facility]. WARNED PAT OF POSSIBLE VAGINAL [...] Screening 10/14/2024 [facility] Screening 05/04/2023 Next Appt Details Provider Name:Latonya Diaz john, 02/14/2025 11:00:00 AM, [address] [place] [address], [address], [place], [address], Insurance Providers Payer Name Payer Address Payer Phone Subscriber Number Group Number Insured Name Patient Relationship to Insured Coverage Start Date Coverage End Date [facility] [address] [address] CAMILA QUINONEZ [id number] MARCUS OLSON Self - patient is the [...]
--- OUTSIDE RECORDS SUMMARY | 2025-02-07 15:04 | XMS_ITS | Continuity of Care Document ---
Author Organization [facility] [address] [place] [address] Phone [phone] Care Team Providers Care Wagon Driller Name Role Phone Vee Queen M.D Care Team Informa tijolanta Truck Service Technician [phone] Problems Active Problems Provider Date Anxiety Eric [...] Medications SIG Qnty Indications Ordering Provider Date Nkbjpxhzqdjjh4tk Tablets 1 tabs by mouth at 11pm 1tabs Eric Shah M.D. 12/01/2022 [id number] Capsules Take 1 Capsule By Mouth 2 Times A Day Terence Olvera MD Rligqdcgylecoqrmvr6m g TBPK follow package directions Unknown Vital Signs Date Vital Result Comment 12/01/2022 11:00am BP Systolic 130 mmHg BP Diastolic 70 mmHg Heart Rate 72 /min Height 64 inches 5'4 Weight 185.00 lb BMI (Body Mass Index) 31.8 kg/m2 Results Test Acquired Date Facility Test Result H/L Range N ote Cortisol 01/20/2023 [facility] Referen ce Lab Cortisol 0.6 g /dL 1 Cortisol 01/06/2023 [facility] Referen ce Lab Cortisol <pending> Cortisol 01/05/2023 [facility] Referen [facility] Lab Cortisol 5.3 g /dL 2 Free T4 01/05/2023 [facility]feren [facility] Lab Free T4 0.98 ng/dL (0.70-1.80) TSH [facility] 0.52 uIU/mL (0.4-4.2) Free T4 01/04/2023 [facility] Referen [facility] Lab Free T4 <pending> TSH 01/04/2023 [facility] ce Lab TSH <pending> 1 Reference [...]
--- OUTSIDE RECORDS SUMMARY | 2025-02-07 15:04 | XMS_ITS | Encounter Summary ---
Author Organization [facility] Address [address] [place] [address] Care Team Providers Care Supervisor Dock Name Role Phone Unavailable Primary Care Provider Unavailabl e Encounter Details Date Type Department Care Team (Late st Contact Info) Description 08/06/2024 8:23 AM EDT Hospital Encounter TH HISTORIC ENCOUNTERS [facility] ONLY Tutu Trivedi MD [address] [place] [address] Social History Tobacco Use Types Packs/Day Years [...] Info) Description 02/08/2025 12:30 PM EDT Appointment [facility] Ultrasound [address] [place] [address] 04/10/2025 11:00 AM EDT Telemedicine [facility] [address] [place] [address] Mary Manzanares MD [address] [place] [address] documented as of this encounter Visit Diagnoses Not on filedocumented in this encounter Additional Health Concerns Infection Onset Date Last Indicated Resolved Time Respiratory Rule-Out 12/05/2024 12/05/2024 025 4:51 PM EST Respiratory Rule-Out 12/14/2024 12/14/2024 025 5:56 PM EST COVID-19 Rule-Out 12/14/2024 12/14/2024 12/14/2024 5:56 PM EST documented as of this encounter
--- OUTSIDE RECORDS SUMMARY | 2025-02-07 15:04 | XMS_ITS | Clinical Summary ---
Author Organization [facility] Address [address] [place] [address] Care Team Providers Care Engagement Executive Name Role Phone Vee Allan MD Primary [...] age to complete this topic Care Teams Engagement Executive Relationship Specialty Start Date End Date Vee Allan MD PCP - General Internal Medicine 12/05/19
--- OUTSIDE RECORDS SUMMARY | 2025-02-07 15:04 | XMS_ITS ---
Author Organization [facility] Address [address] [place] [address] Care Team Providers Care Pv Design And Installation Technician Name Role Phone ANNIKADANIELLE PASCALYN Unavailable [phone] CHINO YBARRA Unavailable [phone] ALLERGIES Allergen (clinical drug ingredient) Drug/Non Drug [...] LORazepam 1 MG TAKE 1 TABLET BY [facility] 3 TIMES A DAY IF NEEDED FOR [...] 02/03/2025 Encounters Encounter Location Date Provider Diagnosis [facility] [address] [address] 02/03/2025 CHINO YBARRA Lymphadenopathy, axillary R59.0 ; [...] was diagnosed by Dr. Dubon out of [place], [place]. Taking methocarbamol 750 mg 3 times [...] Dictation was accomplished with the use of [employer] voice recognition software, which is prone to [...] was diagnosed by Dr. Dubon out of [place], [place]. Taking methocarbamol 750 mg 3 times [...] Dictation was accomplished with the use of [employer] voice recognition software, which is prone to [...] was diagnosed by Dr. Dubon out of [place], [place]. Taking methocarbamol 750 mg 3 times [...] Dictation was accomplished with the use of [employer] voice recognition software, which is prone to [...] was diagnosed by Dr. Dubon out of [place], [place]. Taking methocarbamol 750 mg 3 times [...] Dictation was accomplished with the use of [employer] voice recognition software, which is prone to [...] 0.58 within normal limits. ESR 4. Negative CAIMLO. Continue meloxicam 15 mg tablet daily for pain. Continue follow-up with rheumatology. 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 Dubon out of [place], [place]. Taking methocarbamol 750 mg 3 times [...] Dictation was accomplished with the use of [employer] voice recognition software, which is prone to [...] was diagnosed by Dr. Dubon out of [place], [place]. Taking methocarbamol 750 mg 3 times [...] Dictation was accomplished with the use of [employer] voice recognition software, which is prone to [...] Provider Name:IKER Nichols, 02/13/2025 01:00:00 PM, [address], [place], [address], Progress Notes * David OLSONOB:1965 (59 yo F)Acc No.[id number]:02/03/2025 Progress Notes Patient:??María OLSON Provider:??CHINO YBARRA :1965?Age:59 Y?Sex:Fe male Date:02/03/2025 Address:[address] [place] [address], [id number] Subjective: * Chief Complaints: * ?1. F/u [...] was diagnosed by Dr. Dubon out of [place], [place]. Taking methocarbamol 750 mg 3 times [...] Dictation was accomplished with the use of [employer] voice recognition software, which is prone to medical misidentifications and grammatical errors. This are unintentional and the practitioner does try to identify and correct these, but some could still be present. Please do not hesitate to contact practitioner for clarification. Plan: * Treatment: * Images: Billing Information: * Visit Code:?? 85196 Office Visit, Est Pt., Level 4. Modifiers: [...]
--- OUTSIDE RECORDS SUMMARY | 2025-02-07 15:04 | XMS_ITS ---
Author Organization [facility] Address [address] [place] [address] Care Team Providers Care Tool And Die Maker Apprentice Name Role Phone LINDA KHAN Primary Care Provider REASON FOR VISIT Transferring out Encounters Encounter Location Date Provider Diagnosis [facility] [address] [address] 10/31/2024 LINDA KHAN Plan Of Treatment No Information Progress Notes * MIS OLSONOB:1965 (59 yo F)Acc No.[id number]:10/31/2024 Patient:?MARCUS OLSON :1965???Age:59 Y???Sex:Female Address:[address] [place] [address] * true * Date:? Generated for Renay bear/Hilton/eTransmitting on:?02/07/2025 03:03 PM EDT
--- OUTSIDE RECORDS SUMMARY | 2025-02-07 15:04 | XMS_ITS ---
Author Organization [facility] Address [address] [address] Care Team Providers Care Conference Planner Name Role Phone IKER ROBLERO PA-C Primary Care Provider Latonya Ramirez Unavailable [phone] REASON FOR VISIT LAB RESULTS Encounters Encounter Location Date Provider Diagnosis [facility] [address] [facility] [address] [place] [address] 12/12/2024 Latonya Lozano Plan Of Treatment Next Appt Details Provider Name:Latonya lopez, 02/14/2025 11:00:00 AM, [address] [facility] [facility] [address], [place], [address], Progress Notes * MIS OLSONOB:1965 (59 yo F)Acc No.[id number]:12/12/2024 Patient:?MARCUS OLSON :1965???Age:59 Y???Sex:Female Address:[address] [place] [address], [address] * true * Date:? Generated for Printi chema/Hilton/eTransmitting on:?02/07/2025 03:03 PM EDT
--- OUTSIDE RECORDS SUMMARY | 2025-02-07 15:04 | XMS_ITS ---
Author Organization [facility] [employer] Address [address] [place] [address] Care Team Providers Care Arson Investigator Name Role Phone IKER ROBLERO PA-C Primary Care Provider Latonya Ramirez Unavailable [phone] Allergies Allergen (clinical drug ingredient) Drug/Non Drug Allergy documented on EMR Reaction Allergy Type Onset Date Status erythromycin ERYTHROMYCIN Skin Rash Drug Allergy A ctive Results Component Value Reference Range Notes Vitamin [id number] Reviewed date:12/14/2024 02:48:01 PM Interpretation: Performing Lab:[facility], [address] [place] [address], Phone - [phone], Director - MDJodry Notes/Report: Test(s) [id number]-Dua. B1, Whole Blood was developed and its performance characteristics determined by [employer]. It has not been cleared or approved by the Food and Drug Administration. Vitamin B12 161 807-0673 pg/mL Thyroxine (T4) Free, Direct- [id number] Reviewed date:12/14/2024 02:48:28 PM Interpretation: Performing Lab:[facility], Phone - [phone], Director - MDJodry Notes/Report: Test(s) 480055-Elb. B1, Whole Blood was developed and its performance characteristics determined by [facility]. It has not been cleared or approved by the Food and Drug Administration. T4,Free(Direct) 1.16 0.82-1.77 ng/dL TSH-[id number] Reviewed date:12/14/2024 02:48:55 PM Interpretation: Performing Lab:[facility], [address] [place] [address], Phone - [phone], Director - MDJodry Notes/Report: Test(s) 981277-Lrl. B1, Whole Blood was developed and its performance characteristics determined by [facility]. It has not been cleared or approved by the Food and Drug Administration. TSH 0.492 0.450-4.500 uIU/mL Triiodothyronine (T3), Free- 618802 Reviewed date:12/14/2024 02:48:08 PM Interpretation: Performing Lab:[facility] [address], Phone - [phone], Director - Elsa Notes/Report: Test(s) 980414-Lqh. B1, Whole Blood was developed and its performance characteristics determined by [facility]. It has not been cleared or approved by the Food and Drug Administration. Triiodothyronine (T3), Free 2.9 2.0-4.4 pg/mL Vitamin D, 51-Ieejwyj-170805 Reviewed date:12/14/2024 02:47:53 PM Interpretation: Performing Lab:[facility] [address], Phone - [phone], Director - Elsa Notes/Report: Test(s) 033133-Aoj. B1, Whole Blood was developed and its performance characteristics determined by [facility]. It has not been cleared or approved by the Food and Drug Administration. Vitamin D, 25-Hydroxy 48.0 30.0-100.0 ng/mL Vitamin D deficiency has been defined by the [place] of [employer] and an Endocrine Society practice guideline as a level of serum 25-OH vitamin D less than 20 ng/mL (1,2). The Endocrine Society went on to further define vitamin D insufficiency as a level between 21 and 29 ng/mL (2). 1. IOM ([place] of [employer]). 2010. Dietary reference intakes for calcium and D. [place]: The National Academies Press. 2. Angelica MF, Leonel NC, Sheeba MCEKNNA, et al. Evaluation, treatment, and prevention of vitamin D deficiency: an Endocrine Society clinical practice guideline. JCEM. 2010; 96(7):1911-30. Vitamin B1 (Thiamine), Blood -254235 Reviewed date:12/14/2024 02:48:18 PM Interpretation: Performing Lab:[facility] [address], [place], Phone - [phone], Director - Elsa Notes/Report: Test(s) 345029-Fpv. B1, Whole Blood was developed and its performance characteristics determined by [facility] [employer]. It has not been cleared or approved by the Food and Drug Administration. Vit. B1, Whole Blood 131.3 66.5-200.0 nmol/L PDF Report Reviewed date:12/14/2024 02:47:46 PM Interpretation: Performing Lab:[facility], [address], [place], Phone - [phone], Director - Elsa Notes/Report: Test(s) 757677-Ein. B1, Whole Blood was developed and its performance characteristics determined by [facility]. It has not been cleared or approved by the Food and Drug Administration. REASON FOR VISIT TALK HRT Medications Medication SIG (Take, Route, Frequency, Duration) Notes Start Date End Date Status Prometrium 100 MG 1 capsule at bedtime Orally Once a day for 90 days 12/09/2024 Active Turmeric 500 MG as directed Orally Active Gabapentin 100 MG TAKE 1 CAPSULE BY [facility] 3 TIMES A DAY Oral for 30 [...] Encounters Encounter Location Date Provider Diagnosis Total [address] [place] [address] 12/09/2024 Latonya Lozano Other fatigue R53.83 and [...] AND NEEDS TESTOSTERONE THERAPY, WILL REFER TO [facility]. WARNED DALE OF POSSIBLE VAGINAL [...] AND NEEDS TESTOSTERONE THERAPY, WILL REFER TO [facility]. WARNED PAT OF POSSIBLE VAGINAL BLEEDING. CALL IF SHE HAS ANY BLEEDING. Next Appt Details Follow Up: 3 Months, Reason: Provider Name:Latonya lopez, 02/14/2025 11:00:00 AM, [address], [address], [place], [address], Progress Notes * MIS OLSONOB:1965 (59 yo F)Acc No.[id number]:12/09/2024 PROGRESS NOTES Patient:?WHITNEY MARCUS Appointment Provider:?Latonya lopez M.D. :1965???Age:59 Y???Sex:Female D ate:12/09/2024 Address:[address] [place] [address], [id number] Pcp:CHANTAL KHAN MD Subjective: * Chief Complaints: [...] stool.?no?genitourinary complaints.?no?skin complaints.? 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 * Body Design Checker History:?/ Para?2/2.?Sexual activity?not currently sexually active.?Last Pap Smear:?05/26/23 ASCUS, POS HRHPV (Neg 16, 18/45), 03/28/22 LGSIL, POS HRHPV (neg 16, 18/45), 11/21/17 NEG HRHPV, 2011.?Mammogram:?06/02/23 < 50% density, 02/27/19 < 50% density, 07/26/2017 normal, 07/2016 with follow up Lt Diagnostic 07/09/2016 Bx recommended.?Abnormal Pap Smear:?07/07/23 [place] Negative, 06/06/22 [place] Negative, 03/2022 LGSIL, + HRHPV.?LMP and menses?Nita [...] AND NEEDS TESTOSTERONE THERAPY, WILL REFER TO [facility]. WARNED PAT OF POSSIBLE VAGINAL BLEEDING. CALL IF SHE HAS ANY BLEEDING.?? * Procedure Codes:? * Follow Up:?3 Months * Images: Billing Information: * Visit Code:? * Procedure Codes:? * Sign off status: Completed true * Appointment Provider:?Latonya Lozano M.D. Date:?12/09/2024 Generated for Renay bear/Hilton/Lambertoitting on:?02/07/2025 03:04 PM EDT History and Physical Notes * HPI [...]
--- OUTSIDE RECORDS SUMMARY | 2025-02-07 15:04 | XMS_ITS | Encounter Summary ---
Author Organization [facility] Address [address] [place] [address] Care Team Providers Care Distributor Cleaner Name Role Phone Araceli Augustin Primary Care Provider + Reason for Visit * Reason Onset Date Comments Gel injection scheduling 02/07/2025 Encounter Details Date Type Department Care Team (Late st Contact Info) Description 02/07/2025 Telephone Orthopedic Surgery [place] [address] [address] Carline Alejo MA Gel injection scheduling Social History Tobacco Use Types Packs/Day Years [...] documented in this encounter Progress Notes * Carline Alejo MA - 02/07/2025 1:39 PM EDT I called the patient and LVM making her aware that her gelsyn-3 injections were approved and to give the office a call to schedule these appointments with Irma. I stated that since she did have acortisone injection at her last appointment on 01/22, her first gel injection can be scheduled no sooner than 04/24. These appointments should be scheduled once per week for 3 weeks. documented in this encounter Plan of Treatment Upcoming Encounters Date Type Department Care Team (Late st Contact Info) Description 02/08/2025 12:30 PM EDT Appointment [facility] [address] [place] [address] 04/10/2025 11:00 AM EDT Telemedicine [facility] [address] [place] [address] Mary Manzanares MD [address] [place] [address] documented as of this encounter Visit Diagnoses Not on filedocumented in this encounter Care Teams Distributor Cleaner Relationship Specialty Start Date End Date Araceli Augustin PA [address] [place] [phone] PCP - General 11/20/24 documented as of this encounter
== END 2025-02-07 13:10 | disposition home or self-care (01) ==
LOC: HO.MRI 13:09
PROVIDERS: Visit Provider Internal Medicine Rheumatology
DX: M54.9 Dorsalgia, unspecified (principal); G89.29 Other chronic pain
CPT/HCPCS: 72195

== ENCOUNTER → 2025-02-07 13:23 | Outpatient (BNV) | payer OTHER, SELFPAY | PROVIDERS: Visit Provider Radiology Diagnostic Radiology | DX: M16.0 Bilateral primary osteoarthritis of hip (principal) | CPT/HCPCS: 72195 ==

== ENCOUNTER → 2025-02-27 12:56 | Outpatient (BNVA) | payer OTHER, SELFPAY | PROVIDERS: Visit Provider Internal Medicine Rheumatology | DX: M05.79 Rheumatoid arthritis with rheumatoid factor of multiple sites without organ or systems involvement (principal) | CPT/HCPCS: 20605; J2003; J3300 ==

== ENCOUNTER 2025-02-27 14:40 | Outpatient (AMB) | payer OTHER, SELFPAY ==
--- NOTE | 2025-02-27 14:41 | A.OFFVIS_ITS ---
Vital Signs 02/27/25 14:43 Height 5 ft 4 in Weight 167 lb 8.821 oz BMI 28.8 BP 120/80 Blood Pressure Location Lt brachial Position Sitting Pulse 72 Pulse Source Pulse Oximeter Pulse Oximetry (%) 99 Oxygen Delivery Method Room Air Intake Visit Reasons: Wrist pain Intake Note: wrist Injection Allergies erythromycin base Allergy (Verified 02/27/25 14:42) Hives etanercept [From Enbrel] Adverse Reaction (Intermediate, Verified 02/27/25 14:42) diverticulitis leflunomide Adverse Reaction (Intermediate, Verified 02/27/25 14:42) diverticulitis prednisone Adverse Reaction (Intermediate, Verified 02/27/25 14:42) Body pain HPI HPI Wrist pain: Details: She has had increased abdominal pain and went to [facility] at the advice of her GI practice because her current video games mechanic is away on conference. She received multiple medications including narcotics and Toradol to alleviate her pain. Apparently she has an abdominal mesh that has become stuck to her Abdominal wall. Initially it was placed after cholecystectomy over 20 years ago. After ribs surgery this year she also has undissolved sutures that we will need to be removed. She has not been given a surgical date. Today she was supposed to have nurse teaching visit for [facility]. 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 Office Procedures AMB Joint Injection/Aspiration Joint Injection/Aspiration Details: Right wrist Prep: site was prepped using aseptic technique Injected: 20 mg of, Kenalog, with 0.5 mL of and 1% plain lidocaine Procedure: The patient tolerated the procedure well. Postprocedure protocol was discussed with patient. Coding 30533 - Medium joint Procedure code (CPT) selection complete Office Meds lidocaine (PF) 10 mg/mL (1 %) injection solution Performing Provider: Joshua Castellanos MD Performing Location: [facility] Administered by: Joshua Castellanos MD on 02/27/25 15:34 Dose Route Admin Location Dispensed Lot Number Expiration Date [facility] Front Desk Auxiliary 5 mg Infiltration 2 mL AP [id number] [facility] Kenalog 40 mg/mL suspension for injection Performing Provider: Joshua Castellanos MD Performing Location: [facility] Administered by: Joshua Castellanos MD on 02/27/25 15:34 Dose Route Admin Location Dispensed Lot Number Expiration Date [facility] Front Desk Auxiliary 20 mg intra-articular 1 mL AP [id number] [facility] Assessment & Plan Assessment & Plan (1) Rheumatoid arthritis with positive rheumatoid factor: Comment: Inflammatory arthritis is not controlled. Orencia is indicated. Due to the uncertainty of when she will be having abdominal surgery I am holding Orencia and requesting patient contact GI to formalize a plan. Rheumatology history: Seropositive. RF 113. CCP>250. Diagnosed October 2020. Methotrexate 10/25 -05/2021 -d/c due to LFT elevations. 05/2021 - Humira started - ?improvement. 08/2022 Humira stopped for wrist surgery. leflunomide 04/2023- 05/2024 DC due to diverticulitis. Enbrel 05/2023 DC 06/2023 due to diverticulitis Remicade 04/2024 DC after 1 dose as patient had a positive QuantiFERON test. Latent TB treatment with Rifampin completed 4 months tx on 09/11/2024. CXR 05/2024 no acute pulmonary process. CT chest 12/05/2024 reveals there are few small bilateral pulmonary nodules, subcentimeter (follow-up recommended in 6 months to document stability). She reports that she had tremors and felt unwell on Remicade. History of intermittent hyperlipidemia. Prednisone causes myalgias. Methylprednisolone causes arthralgias. Meloxicam ineffective. Code(s): M05.9 - Rheumatoid arthritis with rheumatoid factor, unspecified Category: Medical Qualifiers: Rheumatoid arthritis location: multiple sites Qualified Code(s): M05.79 - Rheumatoid arthritis with rheumatoid factor of multiple sites without organ or systems involvement Plan: Hold Orencia Patient will call office to inform us when she is planning abdominal surgery. I will then provide recommendations of when she can start Orencia. She will need teaching visit for Orencia then labs 4 weeks after: CBC, creatinine, AST, ALT Patient received cortisone injection to right wrist Return to clinic in 3 months Orders: Orders AMB Joint Injection/Aspiration Today M05.79 - Rheumatoid arthritis with rheumatoid factor of multiple sites without organ or systems involvement Coding Level of Care Code Est Pt Level 4 (50382) Complex EM visit Add On G2211 Diagnoses Rheumatoid arthritis involving multiple sites with positive rheumatoid factor M05.79 Rheumatoid arthritis location: multiple sites CPT Codes Coding - 65374 Medium joint: 68827 - Medium joint ([id number])
[2025-02-27 14:43] VITALS: BP 120/80; PULSE 72; O2SAT 99; BMI 28.8
--- OUTSIDE RECORDS SUMMARY | 2025-02-27 17:22 | XMS_ITS | Clinical Summary ---
Author Organization [facility] Address [address] [place] [address] Care Team Providers Care Back Hanger Name Role Phone Vee Allan MD Primary [...] age to complete this topic Care Teams Back Hanger Relationship Specialty Start Date End Date Vee Allan MD PCP - General Internal Medicine 12/05/19
--- OUTSIDE RECORDS SUMMARY | 2025-02-27 17:22 | XMS_ITS | Continuity of Care Document ---
Author Organization [facility] [address] [place] [address] Phone [phone] Care Team Providers Care Sports Marketer Name Role Phone Vee Queen M.D Care Team Informa tijolanta Jewelry Appraiser [phone] Problems Active Problems Provider Date Anxiety Eric [...] Medications SIG Qnty Indications Ordering Provider Date [id number] Tablets 1 tabs by mouth at 11pm 1tabs Eric Shah M.D. 12/01/2022 [id number] Capsules Take 1 Capsule By Mouth 2 Times A Day Terence Olvera MD Spsjclzmhshetwahkc7c g TBPK follow package directions Unknown Vital Signs Date Vital Result Comment 12/01/2022 11:00am BP Systolic 130 mmHg BP Diastolic 70 mmHg Heart Rate 72 /min Height 64 inches 5'4 Weight 185.00 lb BMI (Body Mass Index) 31.8 kg/m2 Results Test Acquired Date Facility Test Result H/L Range N ote Cortisol 01/20/2023 [facility] Referen [facility] Lab Cortisol 0.6 g /dL 1 Cortisol 01/06/2023 [facility] Referen [facility] Cortisol <pending> Cortisol 01/05/2023 [facility] Referen ce Lab Cortisol 5.3 g /dL 2 Free T4 01/05/2023 [facility] Referen ce Lab Free T4 0.98 ng/dL (0.70-1.80) T[facility] 0.52 uIU/mL (0.4-4.2) Free T4 01/04/2023 [facility] Referen ce Lab Free T4 <pending> TSH 01/04/2023 [facility] ce Lab TSH <pending> 1 Reference [...]
--- OUTSIDE RECORDS SUMMARY | 2025-02-27 17:22 | XMS_ITS | Clinical Summary ---
Author Organization [facility] Address [address] [place] [address] Phone Care Team Providers Care Gaming Host Name Role Phone Araceli Augustin Primary Care [...] and at bedtime 120 each 11 11/20/2024 Active ibuprofen (ADVIL,MOTRIN) 600 mg tablet 12/17/2024 Activ e docusate sodium (COLACE) 100 mg capsule 12/17/2024 Active hydrOXYzine HCL (ATARAX) 25 mg tablet Take 1 tablet (25 mg total) by mouth every 8 (eight) hours if needed for anxiety for up to 14 days. 42 tablet 01/16/2025 Active meloxicam (MOBIC) 15 mg tablet Take 1 tablet (15 mg total) by mouth 1 (one) time each day. Active Active Problems Problem Noted Date Diagnosed Date Acute bilateral low back pain with bilateral sci atica 01/02/2025 Assessment & Plan (01/02/2025 5:46 PM EST): Ms. Phillips describes increasing issues with her lower back and legs. The lumbar CT from [facility] show degenerative disc disease but not stenosis. Her description of paresthesias and leg shaking raise concerns for stenosis. Her workup at the [facility] ER did not correlate with cauda equina syndrome. She is now awaiting a lumbar spine MRI at [place]. I be happy to review that once [...] this, is currently seeing 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 [place] at [facility], had injection in [...] Other specified anxiety disorders 02/09/2021 Rheumatoid arthritis ([facility] V24, [facility] V28) 12/25/2020 Carpal tunnel syndrome 01/23/2020 Overview (08/01/2024): [...] Encounters Date Type Department Care Team Description 02/08/2025 11:54 AM EDT - 02/08/2025 11:59 PM EDT Hospital Encounter [facility] Ultrasound [address] [place] [address] Localized enlarged lymph nodes Discharge Disposition: Home or Self Care 02/07/2025 Telephone Orthopedic [facility] 250 175 [facility] [address] [place] [phone] Carline Alejo MA Gel injection scheduling 02/06/2025 8:30 AM EDT Office Visit [facility]opedic [facility] 175 [facility] [address] [place] [phone] Nichelle Archibald PA Acute pain of left shoulder (Primary Dx) 02/05/2025 10:22 AM EDT - 02/05/2025 11:59 PM EDT Hospital Encounter [facility] [address] [place] [address] Encounter for screening mammogram for malignant neoplasm of breast Discharge Disposition: Home or Self Care 02/04/2025 7:42 AM EDT - 02/04/2025 11:59 PM EDT Hospital Encounter [facility] Pain Management [address] [place] [address] Tutu Trivedi MD Radiculopathy, lumbar region Discharge Disposition: Home or Self Care 02/04/2025 6:58 AM EDT - 02/04/2025 11:59 PM EDT Hospital Encounter [facility] Xray [address] [place] [address] Pain Discharge Disposition: Home or Self Care 01/24/2025 7:28 AM EDT - 01/24/2025 11:59 PM EDT Hospital Encounter [facility] Ultrasound [address] [place] [address] Cervicalgia Discharge Disposition: Home or Self Care 01/24/2025 7:27 AM EDT - 01/24/2025 11:59 PM EDT Hospital Encounter [facility] CT Scan [address] [place] [address] Polyp of nasal cavity; Deviated nasal septum Discharge Disposition: Home or Self Care 01/22/2025 8:00 AM EDT Office Visit [facility] 250 175 [facility] [address] [place] [phone] Von Mcclure MD Follow-up exam (Primary Dx); Fibromyalgia; Post-traumatic osteoarthritis of left knee; Primary osteoarthritis of right knee; Rheumatoid arthritis involving multiple sites with positive rheumatoid factor ([facility] V24, [facility] V28) 01/21/2025 7:59 AM EDT - 01/21/2025 11:59 PM EDT Hospital Encounter [facility] Pain Management [address] [place] [phone] Tutu Trivedi MD Radiculopathy, cervical region Discharge Disposition: Home or Self Care 01/16/2025 8:31 AM EDT - 01/16/2025 11:50 AM EDT Emergency [facility] Emergency [address] [place] [phone] Stephanie Nina DO Generalized abdominal pain (Primary Dx) Discharge Disposition: Home or Self Care 01/08/2025 9:00 AM EST Consult Orthopedic Surgery - [place] 175 [facility] [address] [place] [phone] Nichelle Archibald PA Arthritis of right shoulder region (Primary Dx); Pain in unspecified shoulder; Calcific tendinitis of both shoulders 01/08/[address] [address] Peggy Leon MD Advice Only (Epidural opinion) 01/03/[address] [phone] [place] 12/27/2024 3:00 PM EST Office Visit Neurosurgery [facility] [address] [phone] Peggy Leon MD Cervical spondylosis (Primary Dx); Acute bilateral low back pain with bilateral sciatica 12/26/2024 8:11 AM EST - 12/26/2024 11:59 PM EST Hospital Encounter [facility] Xray [address] [place] [phone] Dysphagia, unspecified Discharge Disposition: Home or Self Care 12/16/2024 Telephone Neurosurgery [facility] [address] [facility] [address] [place] [address] ChrisKanika [place] 12/14/2024 2:01 PM EST - 12/14/2024 9:[address] [facility] Emergency [address] [place] [address] Acute bilateral low back pain, unspecified whether sciatica present (Primary Dx); Tingling in extremities Discharge Disposition: Home or Self Care 12/05/2024 2:30 PM EST - 12/05/2024 9:[address] [facility] Emergency [address] [place] [address] Pain of right hip (Primary Dx) Discharge Disposition: Home or Self Care from Last 3 Months Immunizations Name Administration Dates Next Due Hepatitis B (Mcsqhsb-L-Jmeol , Recombivax HB-Adult) 19yo and older 02/21/2022,01/17/2022 Influenza Quadravalent, MDCK , 0.5ml, preservative free (Flucelvax) 6mo and older 07/28/2023 Influenza trivalent, with preservative (Fluzone; Afluria) 6mo and older 09/19/2022,08/02/2021,09/23/2020,2019 PPD Test 06/01/2015 Cuculus (ages 12 & older) ENMANUEL S-CoV-2 COVID-19, [...] tissue CARPAL TUNNEL RELEASE 01/20/2020 Right PROCEDURE: [place] NEUROPLASTY &/TRANSPOS MEDIAN NRV CARPAL TUNNE COLONOSCOPY OTHER SURGICAL HISTORY 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 [place] at [facility] WRIST SURGERY 11/06/2021 - 11/05/2022 Left scapholunate stablization Medical History Medical History Date Comments Anxiety Treated with Klo nopin in the past. Does not want to have narcotics or addictions. History of actinic keratoses 03/19/2019 Act inic keratoses 03/24 right cheek (lichenoid) Carpal tunnel syndrome 01/23/202001/2020 st eroid injection left, endoscopic release right Rheumatoid arthritis (CMS/HC C V24, CMS/HCC V28) 12/25/2020 Thyroid nodule 07/05/2021 US 06/2021 FNA [...] Care Team (Late st Contact Info) Description 04/10/2025 11:00 AM EDT Telemedicine [facility] 175 [facility] [address] [place] [address] Mary Manzanares MD [address] [place] [address] 04/24/2025 1:30 PM EDT Procedure visit Orthopedic [place] [id number] [phone] Irma Erickson NP [address] [address] 05/01/2025 1:30 PM EDT Procedure visit Orthopedic [address] [phone] Irma Erickson NP [address] [address] 05/08/2025 1:30 PM EDT Procedure visit Orthopedic Surgery [place] [address] [address] [phone] Irma Erickson NP [address] [address] Health Maintenance Due Date Last Done Comments [...] age to complete this topic Meningococcal B Vaccine Aged Out No l onger eligible based on patient's age to complete this topic RSV Immunization Patients Under 20 months Aged Out No longer eligible based on patient's age to complete this topic Varicella Vaccines Aged Out No longer eligible based on patient's age to complete this topic Procedures Procedure Name Priority Date/Time Associated Diagnosis Comments US HEAD NECK SOFT TISSUE Routine 02/08/2025 12:26 PM EDT Localized enlarged lymph nodes MG MAMMO DIGITAL SCREENING W SG BILAT Routine 02/05/2025 10:40 AM EDT Encounter for screening mammogram for malignant neoplasm of breast XR FLUORO UP TO 1 HOUR Routine 02/04/2025 8:55 AM EDT Pain US HEAD NECK SOFT TISSUE STAT 01/24/2025 7:[address] SINUSES WO CONTRAST Routine 01/24/2025 7:36 AM EDT Polyp of nasal cavity Deviated nasal septum RI ARTHROCENTESIS/ASPIR ATION/INJECTION MAJOR JOINT/BURSA W/O U/S GUIDANCE [...] AND DIFFERENTIAL STAT 12/05/2024 1:30 PM EST LIPID PANEL WITH REFLEX TO DIRECT LDL Routine 10/28/2024 2:36 PM EST Atrophic arthritis (CMS/HCC V24, CMS/HCC V28) Routine general medical examination at a health care facility Screening for lipoid disorders Screening for diabetes mellitus Screening for thyroid disorder Avitaminosis D HEPATITIS C SCREENING Routine 05/20/2024 HIV SCREENING Routine 05/20/2024 COLONOSCOPY Routine 08/15/2023 HPV Routine 07/20/2023 from Last 3 Months or Most Recently Relevant to Health Maintenance Results * US Head Neck Soft Tissue (02/08/2025 12:26 PM EDT) Only the most recent of2 resultswithin the time period is included. Anatomical Region Laterality Modality Head and Neck Ultrasound 02/08/2025 3:52 PM EDT Impressions 02/08/2025 3:55 PM EDT No etiology for symptoms demonstrated. The patient should be managed on the basis of the clinical exam, history and any pertinent laboratory values -------- FINAL REPORT -------- Dictated By: Alexey [place] Dictated Date: 02/08/2025 15:52 ET Assigned Physician: Alexey [place] Reviewed and Electronically Signed By: Alexey [place] Signed Date: 02/08/2025 15:55 ET Workstation ID: [id number] Transcribed By: Self Edit Transcribed Date: 02/08/2025 15:52 ET Narrative 02/08/2025 3:55 PM EDT EXAMINATION: US , LEFT AXILLA CLINICAL INFORMATION: Left axillary pain and swelling COMPARISON: None. TECHNIQUE: High-frequency linear transducer examination with attention to the area of clinical concern Frequency linear transducer examination with attention to the area of pain and swelling in the left axilla FINDINGS: QUALITY: Adequate No suspicious mass. No suspicious area of altered echotexture. The skin and superficial muscular fascia appear well defined. There is no abnormal color signal. Procedure Note Alexey Morton MD - 02/08/2025 EXAMINATION: US , LEFT AXILLA CLINICAL INFORMATION: Left axillary pain and swelling COMPARISON: None. TECHNIQUE: High-frequency linear transducer examination with attention to the area ofclinical concern Frequency linear transducer examination with attention to the area of painand swelling in the left axilla FINDINGS: QUALITY: Adequate No suspicious mass. No suspicious area of altered echotexture. The skin and superficial muscular fascia appear well defined. There is noabnormal color signal. IMPRESSION: No etiology for symptoms demonstrated. The patient should be managed on the basis of the clinical exam, historyand any pertinent laboratory values -------- FINAL REPORT -------- Dictated By: Alexey [place] Dictated Date: 02/08/2025 15:52 ET Assigned Physician: Alexey [place] Reviewed and Electronically Signed By: Alexey [place] Signed Date: 02/08/2025 15:55 ET Workstation ID: [id number] Transcribed By: Self Edit Transcribed Date: 02/08/2025 15:52 ET us Irais BOOTHE IMG US PROCEDURES Final R esult * MG Mammo Digital Screening w Sg bilat (02/05/2025 10:40 AM EDT) Anatomical Region Laterality Modality Breast Bilateral Mammography 02/06/2025 9:43 AM EDT Impressions 02/06/2025 9:45 AM EDT No evidence of breast malignancy. BI-RADS CATEGORY: 1 - NEGATIVE RECOMMENDATION: Screening bilateral mammogram is recommended in 1 year. Mammo Location: [facility], [address] [place] [address], [id number], . -------- FINAL REPORT -------- Dictated By: Stefani Zamora Dictated Date: 02/06/2025 09:43 ET Assigned Physician: Stefani Zamora Reviewed and Electronically Signed By: Stefani Zamora Signed Date: 02/06/2025 09:45 ET Workstation ID: [id number] Transcribed By: Self Edit Transcribed Date: 02/06/2025 [...] year. Mammo Location: [facility], [address] [place] [address], [id number], . -------- FINAL REPORT -------- Dictated By: Stefani Zamora Dictated Date: 02/06/2025 09:43 ET Assigned Physician: Stefani Zamora Reviewed and Electronically Signed By: Stefani Zamora Signed Date: 02/06/2025 09:45 ET Workstation ID: [id number] Transcribed By: Self Edit Transcribed Date: 02/06/2025 [...] Signed Date: 02/04/2025 12:53 ET Workstation ID: [id number] Transcribed By: Self Edit Transcribed Date: 02/04/2025 [...] with some opaque contrast. Procedure Note Alexey Mortno MD - 02/04/2025 EXAMINATION: Imaging assistance provided [...] Signed Date: 02/04/2025 12:53 ET Workstation ID: [id number] Transcribed By: Self Edit Transcribed Date: 02/04/2025 12:51 ET us Tutu Trivedi MD IMG FLUOROSCOPY PROCEDURES Fin al Result * CT Sinuses wo Contrast (01/24/2025 7:36 [...] Signed Date: 01/24/2025 08:42 ET Workstation ID: [id number] Transcribed By: Self Edit Transcribed Date: 01/24/2025 [...] Signed Date: 01/24/2025 08:42 ET Workstation ID: [id number] Transcribed By: Self Edit Transcribed Date: 01/24/2025 08:15 ET Js Genaro Mahoney MD [facility] [place] PROCEDURES Final Res ult * RI ARTHROCENTESIS/ASPIRATION/INJECTION MAJOR JOINT/BURSA W/O U/S GUIDANCE (01/22/2025 [...] resultswithin the time period is included. Specific [place] Urine 1.034(H) 1.003 - 1.030 LAB URINALYSIS [...] - AUTOMATED METHOD 01/16/2025 12:[address] [facility] Urobilinogen, Urine 0.2 0.2 - 1.0 mg/dL LAB URINALYSIS - AUTOMATED METHOD 01/16/2025 12:[address] [facility] Bilirubin, Urine Negative Negative LAB URINALYSIS - AUTOMATED METHOD 01/16/2025 12:[address] [facility] Blood, Urine Negative Negative LAB URINALYSIS - AUTOMATED METHOD 01/16/2025 12:[address] [facility] Urine Urine specimen obtained by clean catch procedure / Unknown Non-blood Collection / Unknown 01/16/2025 11:08 AM EDT 01/16/2025 12:11 PM EDT us Stephanie Zimmerman Nina LAB URINE ORDERABLES Nataliia l Result Performing Organization Address City/[facility]/ZIP Co de Phone Number [facility] [address] [place] [address], [place] [phone] * In[place] urine culture tube (01/16/2025 11:08 AM EDT) Only the most recent of2 resultswithin the time period is included. Extra Tube Hold for add-ons. 01/16/2025 2:[address] [facility] Comment:Auto resulted. Urine Urine specimen obtained by clean catch procedure / Unknown Non-blood Collection / Unknown 01/16/2025 11:08 AM EDT 01/16/2025 12:11 PM EDT us [facility] Zimmerman [email or web address] LAB URINE ORDERABLES Nataliia l Result [facility] [address] [place] [address], [place] [phone] * CT Abdomen Pelvis w Contrast (01/16/2025 [...] Signed Date: 01/16/2025 10:48 ET Workstation ID: [id number] Transcribed By: Self Edit Transcribed Date: 01/16/2025 [...] Signed Date: 01/16/2025 10:48 ET Workstation ID: [id number] Transcribed By: Self Edit Transcribed Date: 01/16/2025 10:43 ET us Stephanie Nina DO IMG CT PROCEDURES Final R esult * Thyroid stimulating hormone with reflex to free t4 and free t3 (TSH Reflex) (01/16/2025 7:18 AM EDT) TSH 2.08 0.40 - 4.00 mcIU/mL LAB CHEMISTRY METHOD 01/16/2025 10:[address] [facility] Blood Venous blood specimen / Unknown Venipuncture / Unknown 01/16/2025 7:18 AM EDT 01/16/2025 7:55 AM EDT us Stephanie Nina DO LAB BLOOD ORDERABLES Nataliia l Result [facility] [address] [place] [address], [place] [phone] * (ABNORMAL) CBC auto differential (01/16/2025 7:18 AM EDT) Only the most recent of3 resultswithin the time period is included. WBC 7.7 4.8 - 10.8 K/mcL LAB HEMETOLOGY METHOD 01/16/2025 8:02 AM [facility] RBC 4.40 3.80 - 4.80 M/[facility] LAB HEMETOLOGY METHOD 01/16/2025 8:02 AM [facility] [...] LAB HEMETOLOGY METHOD 01/16/2025 8:[address] [facility] Eosinophils Absolute 0.40 0.00 - 0.50 K/[facility] LAB HEMETOLOGY METHOD 01/16/2025 8:[address] [facility] Basophils Absolute 0.04 0.00 - 0.20 K/[facility] LAB HEMETOLOGY METHOD 01/16/2025 8:[address] [facility] Immature Granulocytes Absolute 0.02 0.00 - 0.03 K/[facility] LAB HEMETOLOGY METHOD 01/16/2025 8:[address] [facility] Blood Venous blood specimen / Unknown Venipuncture / Unknown 01/16/2025 7:18 AM EDT 01/16/2025 7:55 AM EDT us Robreto Carlos Marie MD LAB BLOOD ORDERABLES Final Resu lt Performing Organization Address [facility]/ZIP Co de Phone Number [facility] [address] [place] [address], [place] [phone] * Lipase (01/16/2025 7:18 AM EDT) Pathologist [facility] Lipase 18 13 - 75 unit/L LAB CHEMISTRY METHOD 01/16/2025 8:[address] [facility] Blood Venous blood specimen / Unknown Venipuncture / Unknown 01/16/2025 7:18 AM EDT 01/16/2025 7:55 AM EDT us Roberto Carlos Marie MD LAB BLOOD ORDERABLES Final Resu lt Performing Organization Address City/[facility]/ZIP Co de Phone Number [facility] [address] [place] [address], [place] [phone] * (ABNORMAL) Comprehensive metabolic panel (01/16/2025 7:18 AM EDT) Sodium 138 133 - 145 mmol/L LAB CHEMISTRY METHOD 01/16/2025 8:42 AM [facility] Potassium 4.5 3.5 - 5.5 mmol/L LAB CHEMISTRY METHOD 01/16/2025 8:42 AM [facility] Chloride 103 96 - 110 mmol/L LAB CHEMISTRY METHOD 01/16/2025 8:42 AM [facility] CO2 29 21 - 32 mmol/L LAB CHEMISTRY METHOD 01/16/2025 8:42 AM [facility] Anion Gap 6 3 - 11 LAB CHEMISTRY METHOD 01/16/2025 8:42 AM [facility] Glucose 108(H) 70 - 100 [...] LAB CHEMISTRY METHOD 01/16/2025 8:[address] [facility] Total Protein 7.5 6.0 - 8.0 g/dL LAB CHEMISTRY METHOD 01/16/2025 8:[address] [facility] Albumin 4.1 3.2 - 5.0 g/dL LAB CHEMISTRY METHOD 01/16/2025 8:[address] [facility] Total Bilirubin 0.5 0.0 - 1.4 mg/dL LAB CHEMISTRY METHOD 01/16/2025 8:[address] [facility] Blood Venous blood specimen / Unknown Venipuncture / Unknown 01/16/2025 7:18 AM EDT 01/16/2025 7:55 AM EDT us Roberto Carlos Marie MD LAB BLOOD ORDERABLES Final Resu lt [facility] [address] [place] [address], [place] [phone] * XR Shoulder 2+ Views bilat (01/08/2025 [...] Signed Date: 12/27/2024 08:28 ET Workstation ID: [id number] Transcribed By: Self Edit Transcribed Date: 12/26/2024 13:36 ET Resident/PA/ROLL EDGE MACHINE OPERATOR: Lidia Escamilla Narrative 12/27/2024 8:28 AM EST FINDINGS: Double contrast esophagram performed. COMPARISON: Esophagram March 04, 2022 HISTORY: Patient is a 59-year-old female with history of globus sensation. Epigastric pain. Rn Mental Health radiographs: 1 view chest radiograph demonstrates cardiac [...] female with history of globus sensation.Epigastric pain. Rn Mental Health radiographs: 1 view chest radiograph demonstrates cardiac [...] Signed Date: 12/27/2024 08:28 ET Workstation ID: [id number] Transcribed By: Self Edit Transcribed Date: 12/26/2024 13:36 ET Resident/PA/ROLL EDGE MACHINE OPERATOR: Lidia Escamilla us Js Mahoney MD IM FLUOROSCOPY PROCEDURES Final Result * XR Lumbar [...] Signed Date: 12/15/2024 07:42 ET Workstation ID: [id number] Transcribed By: Self Edit Transcribed Date: 12/15/2024 [...] Signed Date: 12/15/2024 07:42 ET Workstation ID: [id number] Transcribed By: Self Edit Transcribed Date: 12/15/2024 [...] Olga Jauregui MD on 12/14/2024 17:57:05 Dwight Block TL IMG CT PROCEDURES Final Result * ECG 12 lead (12/14/2024 4:37 PM EST) Ventricular Rate ECG 67 BPM GEMUSE Atrial Rate 67 BPM GEMUSE P-R Interval 162 ms GEMUSE QRS Duration 64 ms GEMUSE Q-T Interval 422 ms GEMUSE QTc 445 ms GEMUSE P Wave [place] 40 degrees GEMUSE R [place] 6 degrees GEMUSE T [place] 26 degrees GEMUSE ECG Interpretation Normal sinus [...] Detected LAB MICROBIOLOGY METHOD 12/14/2024 5:56 PM [facility] Influenza A PCR Not Detected Not Detected LAB MICROBIOLOGY METHOD 12/14/2024 5:56 PM [facility] Influenza B PCR Not Detected Not Detected LAB MICROBIOLOGY METHOD 12/14/2024 5:56 PM [facility] Coronavirus 229E Not Detected Not Detected LAB MICROBIOLOGY METHOD 12/14/2024 5:56 PM [facility] Coronavirus HKU1 Not Detected Not Detected LAB MICROBIOLOGY METHOD 12/14/2024 5:56 PM [facility] Coronavirus OC43 Not Detected Not Detected LAB MICROBIOLOGY METHOD 12/14/2024 5:56 PM [facility] Coronavirus NL63 Not Detected Not Detected LAB MICROBIOLOGY METHOD 12/14/2024 5:56 PM [facility] Parainfluenza Virus 1 Not Detected Not Detected LAB MICROBIOLOGY METHOD 12/14/2024 5:56 PM [facility] Parainfluenza Virus 2 Not Detected Not Detected LAB MICROBIOLOGY METHOD 12/14/2024 5:[address] [facility] Parainfluenza Virus 3 Not Detected Not Detected LAB MICROBIOLOGY METHOD 12/14/2024 5:[address] [facility] Parainfluenza Virus 4 Not Detected Not Detected LAB MICROBIOLOGY METHOD 12/14/2024 5:56 PM [facility] RSV PCR Not Detected Not Detected LAB MICROBIOLOGY METHOD 12/14/2024 5:56 PM [facility] Human Metapneumovirus A and B Not Detected Not Detected LAB MICROBIOLOGY METHOD 12/14/2024 5:56 PM [facility] Rhinovirus/Entero virus Not Detected Not Detected LAB MICROBIOLOGY METHOD 12/14/2024 5:56 PM [facility] Bordetella pertussis Not Detected Not Detected LAB MICROBIOLOGY METHOD 12/14/2024 5:56 PM [facility] Bordetella parapertussis Not Detected Not Detected LAB MICROBIOLOGY METHOD 12/14/2024 5:56 PM [facility] Mycoplasma pneumo by PCR Not Detected Not Detected LAB MICROBIOLOGY METHOD 12/14/2024 5:56 PM [facility] Chlamydia pneumoniae Not Detected Not Detected LAB MICROBIOLOGY METHOD 12/14/2024 5:56 PM [facility] SARS COV-2 Not Detected Not Detected LAB MICROBIOLOGY METHOD 12/14/2024 5:56 PM [facility] Swab Both anterior nares / Unknown Non-blood Collection / Unknown 12/14/2024 4:28 PM EST 12/14/2024 4:34 PM EST [facility] - 12/14/2024 5:56 PM EST Testing was performed using the [employer] Respiratory Pathogen PCR Assay. All results must [...] that are below the limit of detection. [facility] MICROBIOLOGY - GENERAL ORDER KAILASH Final Result Performing Organization Address City/[facility]/ZIP Co de Phone Number [facility] [address] [place] [address], [place] [phone] * Phosphorus (12/14/2024 12:01 PM EST) Phosphorus 3.5 2.5 - 4.5 mg/dL LAB CHEMISTRY METHOD 12/14/2024 4:[address] [facility] Blood Venous blood specimen / Unknown Venipuncture / Unknown 12/14/2024 12:01 PM EST 12/14/2024 12:24 PM EST [facility] LAB BLOOD ORDERABLES Final Resul t Performing Organization Address [facility]/ZIP Co de Phone Number [facility] [address] [place] [address], [place] [phone] * Magnesium (12/14/2024 12:01 PM EST) Only the most recent of2 resultswithin the time period is included. Magnesium 2.0 1.9 - 2.6 mg/dL LAB CHEMISTRY METHOD 12/14/2024 12:[address] [facility] Blood Venous blood specimen / Unknown Venipuncture / Unknown 12/14/2024 12:01 PM EST 12/14/2024 12:24 PM EST Pepe Mar DO LAB BLOOD ORDERABLES Final Result Performing Organization Address City/[facility]/ZIP Co de Phone Number [facility] [address] [place] [address], [place] [phone] * (ABNORMAL) Basic metabolic panel (12/14/2024 12:01 PM EST) Only the most recent of2 resultswithin the time period is included. Sodium 138 133 - 145 mmol/L LAB CHEMISTRY METHOD 12/14/2024 12:59 PM [facility] Potassium 4.5 3.5 - 5.5 mmol/L LAB CHEMISTRY METHOD 12/14/2024 12:59 PM [facility] Chloride 106 96 - 110 mmol/L LAB CHEMISTRY METHOD 12/14/2024 12:59 PM [facility] CO2 28 21 - 32 mmol/L LAB CHEMISTRY METHOD 12/14/2024 12:59 PM [facility] Anion Gap 4 3 - 11 LAB CHEMISTRY METHOD 12/14/2024 12:59 PM [facility] Glucose 119(H) 70 - 100 mg/dL LAB CHEMISTRY METHOD 12/14/2024 12:59 PM [facility] BUN 13 5 - 25 mg/dL LAB CHEMISTRY METHOD 12/14/2024 12:59 PM [facility] Creatinine 0.82 0.50 - 1.10 mg/dL LAB CHEMISTRY METHOD 12/14/2024 12:59 PM [facility] eGFR 84 >=60 mL/min/1. 73m2 LAB CHEMISTRY METHOD 12/14/2024 12:59 PM [facility] Comment:Calculation based on the??Chronic Kidney Disease Epidemiology Collaboration (CKD-EPI) equation refit??without adjustment for race. BUN/Creatinine Ratio 15.9 LAB CHEMISTRY METHOD 12/14/2024 12:59 PM [facility] Calcium 9.6 8.5 - 10.5 mg/dL LAB CHEMISTRY METHOD 12/14/2024 12:59 PM [facility] Blood Venous blood specimen / Unknown Venipuncture / Unknown 12/14/2024 12:01 PM EST 12/14/2024 12:24 PM EST Pepe Mar DO LAB BLOOD ORDERABLES Final Result [facility] [address] [place] [address], * ECG-Annotated (12/14/2024) us Provider Onbase ECG ORDERABLES Final Result [...] Borrelia burgdorferi antibody (12/05/2024 1:30 PM EST) [facility] Lyme Ab Negative Negative LAB CHEMISTRY METHOD 12/06/2024 9:[address] [facility] Comment: No laboratory evidence of [...] ORDERABLES Final Resu lt Performing Organization Address City/[facility]/ZIP Co de Phone Number [facility] [address] [place] [address], [place] [phone] * Sedimentation rate, automated (12/05/2024 1:30 PM EST) [facility] Sed Rate 20 0 - 30 mm/hr LAB HEMETOLOGY METHOD 12/05/2024 1:[address] [facility] Blood Venous blood specimen / Unknown Venipuncture / Unknown 12/05/2024 1:30 PM EST 12/05/2024 1:39 PM EST us Jewel Hernández MD LAB BLOOD ORDERABLES Final Resu lt Performing Organization Address City/[facility]/ZIP Co de Phone Number [facility] [address] [place] [address], [place] [phone] * C-reactive protein (12/05/2024 1:30 PM EST) [facility] C-Reactive Protein <0.29 <=0.50 mg/dL LAB CHEMISTRY METHOD 12/05/2024 2:[address] [facility] Blood Venous blood specimen / Unknown Venipuncture / Unknown 12/05/2024 1:30 PM EST 12/05/2024 1:39 PM EST us Jewel Hernández MD LAB BLOOD ORDERABLES Final Resu lt [facility] [address] [place] [address], [place] [phone] * Creatine kinase (12/05/2024 1:30 PM EST) Pathologist [facility] Total CK 80 22 - 269 unit/L LAB CHEMISTRY METHOD 12/05/2024 2:05 PM [facility] Blood Venous blood specimen / Unknown Venipuncture / Unknown 12/05/2024 1:30 PM EST 12/05/2024 1:39 PM EST us Jewel Hernández MD LAB BLOOD ORDERABLES Final Resu lt Performing Organization Address [facility]/ZIP Co de Phone Number [facility] [address] [place] [address], [place] [phone] * Lipid panel with reflex to direct LDL (10/28/2024 2:36 PM EST) Cholesterol 196 0 - 200 mg/dL LAB CHEMISTRY METHOD 10/28/2024 4:17 PM [facility] Triglycerides 51 0 - 150 mg/dL LAB CHEMISTRY METHOD 10/28/2024 4:17 PM [facility] HDL 111 >=40 mg/dL LAB CHEMISTRY METHOD 10/28/2024 4:17 PM [facility] LDL Calculated 75 0 - 100 mg/dL LAB CHEMISTRY METHOD 10/28/2024 4:17 PM [facility] VLDL Cholesterol [place] 10.2 mg/dL LAB CHEMISTRY METHOD 10/28/2024 4:[address] [facility] Non HDL Chol. (LDL+VLDL) 85 <145 mg/dL LAB CHEMISTRY METHOD 10/28/2024 4:[address] [facility] Chol/HDL Ratio 1.8 0.0 - 4.4 LAB CHEMISTRY METHOD 10/28/2024 4:[address] [facility] Blood Venous blood specimen / Unknown Venipuncture / Unknown 10/28/2024 2:36 PM EST 10/28/2024 3:06 PM EST Araceli BOOTHE LAB BLOOD ORDERABLES Fin al Result [facility] [address] [place] [address], [place] [phone] * HIV Screening (05/20/2024) [facility] HIV Screening abstracted [facility] Provider HEALTH MAINTENANCE Final Result * Hepatitis C Screening (05/20/2024) [facility] Hepatitis C Screening abstracted [facility] Provider HEALTH MAINTENANCE Final Result * Colonoscopy (08/15/2023) [facility] Colonoscopy no interpreta tion,abstr acted Anatomical Region Laterality Modality Other [facility] Provider HEALTH MAINTENANCE Final Result * Cervical Cancer Screening: HPV (07/20/2023) Pathologist [facility] Cervical Cancer Screening: HPV no interpreta tion,abstr acted [facility] Provider HEALTH MAINTENANCE Final Result from Last 3 Months or Most Recently Relevant to Health Maintenance Insurance [facility] Care Teams Gaming Host Relationship Specialty Start Date End Date Araceli Augustin PA [address] [place] [phone] PCP - General 11/20/24
--- OUTSIDE RECORDS SUMMARY | 2025-02-27 17:22 | XMS_ITS | Encounter Summary ---
Author Organization [facility] Address [address] [place] [address] Care Team Providers Care Postbed Stitcher Name Role Phone Unavailable Primary Care Provider Unavailabl e Encounter Details Date Type Department Care Team (Late st Contact Info) Description 08/06/2024 8:23 AM EDT Hospital Encounter TH HISTORIC ENCOUNTERS [facility] ONLY Tutu Trivedi MD [address] [place] [address] Social History Tobacco Use Types Packs/Day Years [...] Info) Description 04/10/2025 11:00 AM EDT Telemedicine [facility] - [address] [place] [phone] Mary Manzanares MD [address] [place] [address] 04/24/2025 1:30 PM EDT Procedure visit [facility] Surgery [address] [phone] Irma Erickson NP [address] [address] 05/01/2025 1:30 PM EDT Procedure visit Orthopedic Surgery [place] [address] [address] Irma Erickson NP [address] [address] 05/08/2025 1:30 PM EDT Procedure visit Orthopedic Surgery [facility] [address] [address] Iram Erickson NP [address] [address] documented as of this encounter Visit Diagnoses Not on filedocumented in this encounter Additional Health Concerns Infection Onset Date Last Indicated Resolved Time Respiratory Rule-Out 12/05/2024 12/05/2024 025 4:51 PM EST Respiratory Rule-Out 12/14/2024 12/14/2024 025 5:56 PM EST COVID-19 Rule-Out 12/14/2024 12/14/2024 12/14/2024 5:56 PM EST documented as of this encounter
== END 2025-02-27 15:14 | disposition home or self-care (01) ==
LOC: HO.RHES 14:40
PROVIDERS: Visit Provider Internal Medicine Rheumatology
DX: M05.79 Rheumatoid arthritis with rheumatoid factor of multiple sites without organ or systems involvement (principal); M25.531 Pain in right wrist
CPT/HCPCS: 20605; 99214

== ENCOUNTER 2025-05-14 09:56 | Outpatient (AMB) | payer OTHER, SELFPAY ==
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
[2025-05-14 10:08] VITALS: BP 100/70; PULSE 77; O2SAT 98; BMI 28.9
== END 2025-05-14 10:48 | disposition home or self-care (01) ==
LOC: HO.RHES 09:57
PROVIDERS: Visit Provider Internal Medicine Rheumatology
DX: M05.79 Rheumatoid arthritis with rheumatoid factor of multiple sites without organ or systems involvement (principal)
CPT/HCPCS: 99214; G2211

== ENCOUNTER 2025-05-14 09:56 | Outpatient (REF) | payer OTHER, SELFPAY ==
--- OUTSIDE RECORDS SUMMARY | 2025-02-14 07:00 | XMS_ITS ---
Author Organization [facility] Address [address] [place] [address] Care Team Providers Care Apparel Fashion Designer Name Role Phone IKER ROBLERO PA-C Primary Care Provider Unav Latonya Panda Unavailable [phone] REASON FOR VISIT ULTRA - CK OVARIES ? DERMOID ON RT ADNEXA ON X RAY Encounters Encounter Location Date Provider Diagnosis [facility] [address] 02/14/2025 Latonya Lozano Plan Of Treatment No Information Progress Notes * DAWSON OLSONMOONOB:1965 (59 yo F)Acc No.[id number]:02/14/2025 PROGRESS NOTES Patient: MARCUS RODRIGUEZ Appointment Provider: Shannon Lozano M.D. :1965 A ge:59 Y S ex:Female Date:02/14/2025 Address:[address] [place], [place] [address] Pcp:IKER ROBLERO PA-C Subjective: * Chief Complaints: * 1 . ULTRA - CK OVARIES ? DERMOID ON RT ADNEXA ON X RAY. * Medical History: Objective: * Vitals: Assessment: Plan: * Treatment: * Images: Billing Information: * Visit Code: * Procedure Codes: * Electronic signature of Pato Lozano MD on 05/14/2025 at 11:56 AM EDT Sign off status: Pending * Appointment Provider: Shannon Lozano M.D. Date: 0 02/14/2025 Generated for Renay bear/Hilton/eTransmitting on: 0 05/14/2025 11:56 AM EDT
--- OUTSIDE RECORDS SUMMARY | 2025-05-14 11:51 | XMS_ITS | Encounter Summary ---
Author Organization [facility] Address [address] [place] [address] Care Team Providers Care Lead Cargo Mover Name Role Phone Araceli Augustin Primary Care Provider + Encounter Details Date Type Department Care Team (Latest Contact Info) Description 05/14/2025 11:51 AM EDT Hospital Encounter [facility] Xray [address] [place] [address] Rheumatoid arthritis with rheumatoid factor of multiple sites without organ or systems involvement ([facility] V24, [facility] V28) Social History Tobacco Use Types Packs/Day Years Used Date Smoking Tobacco: Every Day Cigarettes 0.5 48.5 Started: 1974 Smokeless Tobacco: Never Alcohol Use [...] Safety Answer Date Record ed Physical Abuse 05/06/2025 Verbal Abuse 05/06/2025 Comments No Sex and Gender Information Value [...] Care Team (Late st Contact Info) Description 05/15/2025 9:30 AM EDT Hospital Encounter [facility] Nuclear Medicine [address] [place] [address] 06/05/2025 11:00 AM EDT Appointment [facility] Endoscopy [address] [place] [address] Melba Bunn MD [address] [facility] [address] [place] [address] 06/25/2025 8:30 AM EDT Ancillary Procedure [facility] [address] [facility] [address] [place] [address] Scheduled Orders Name Type Priority Associated Diagnoses Orde r Schedule XR Hand 3+ Views Right Imaging Routine Rheumatoid arthritis with rheumatoid factor of multiple sites without organ or systems involvement ([facility] V24, [facility] V28) Once for 1 Occurrences starting 05/14/2025 until 05/14/2025 documented as of this encounter Visit Diagnoses Diagnosis Rheumatoid arthritis with rheumatoid factor of multiple sites without organ or systems involvement ([facility] V24, [facility] V28) documented in this encounter Care Teams Lead Cargo Mover Relationship Specialty Start Date End Date Araceli Augustin PA [address] [place] [phone] PCP - General 11/20/24 documented as of this encounter
--- OUTSIDE RECORDS SUMMARY | 2025-05-14 11:56 | XMS_ITS | Patient Health Record ---
Author Organization [facility] [address] Address [address] [place] [address] Care Team Providers Care Self Pay Specialist Name Role Phone ANNIKA, IKER Unavailable [phone] MILESCHINO CHRIS Unavailable [phone] Normoylmason Sneha Unavailable [phone] Allergies Allergen (clinical drug ingredient) Drug/Non Drug Allergy documented on EMR Reaction Allergy Type Onset Date Status Macrolides and Ketolides hives Drug Allergy Active Results Component Value Reference Range Notes CT SINUSES WO CONTRAST Reviewed date:01/24/2025 12:18:38 PM Interpretation: Performing Lab: Notes/Report: Note See Note [facility], a member of [facility] Patient Name: MARÍA PHILLIPS Date of : 1965 Reason for Exam: deviated septum,sinonasal polyp Exam Date: 01/24/2025 [id number] EST Report Status: Final Ordering Provider: EDMUND [...] Signed Date: 025 08:42 ET Workstation ID: [id number] Transcribed By: Self Edit Transcribed Date: 01/24/2025 08:15 ET CALPROTECTIN, STOOL Reviewed date:05/12/2025 05:08:37 PM Interpretation: Performing Lab: Notes/Report: Calprotectin, Fecal 16.5 <50 mcg/g <50 mcg/g Normal 50 - 120 mcg/g Borderline >120 mcg/g Abnormal Borderline results suggest repeat testing in 4 to 6 weeks. Test performed at [facility], [facility] [place] [address] [place] [address] Krystina Austin MD, PhD - [employer] Lead HELICOBACTER PYLORI ANTIGEN, STOOL Reviewed date:05/13/2025 04:03:38 PM Interpretation: Performing Lab: Notes/Report: Helicobacter Pylori Ag DETECTED Not detected This test was performed at [facility] using a chemiluminescent immunoassay intended for the qualitative determination of helicobacter pylori (H. pylori) antigen in human stool. The test is an aid in the diagnosis of patients suspected of H. pylori infection and to measure post therapy response from patients. Assay results should be used in conjunction with other clinical and laboratory data to assist the clinician in making individual patient management decisions. A negative test result does not preclude the possibility of the presence of H. pylori antigen in the specimen, which may occur if the level of antigen is below the detection limit of the test. Antimicrobials, proton pump inhibitors, and bismuth preparations are known to suppress H. pylori and, if ingested, may give a false negative result. In these cases a new fecal sample should be collected and tested 14 days after treatment has stopped. Positive results from patients that have used antibiotics, PPIs, or bismuth compounds in the 14 days prior to fecal sample collection are still considered accurate. This assay has not been evaluated in a pediatric population. This test has been approved as an in vitro diagnostic by the [place] Food and Drug Administration. Test performed at [facility], [address] [facility] [address], [place] [address] Krystina Austin MD, PhD - [employer] Lead GASTROINTESTINAL PATHOGENS TRESGERARD STUDY Reviewed date:05/08/2025 03:43:25 PM Interpretation: Performing Lab: Notes/Report: PCR testing is much more sensitive than traditional techniques and allows for the detection of low numbers of stool pathogens. The clinical correlation of PCR results with the need for treatment and clinical outcomes has not been established. Therefore the results of PCR testing for stool pathogens must be taken into clinical context when making treatment decisions. This is a diagnostic test only, repeat testing for cure is not advised. You may consider infectious disease consult for additional guidance. Testing Performed by [facility] Campylobacter Detection by PCR Not Detected Not Detected Plesiomonas shigelloides Detection by PCR Not Detected Not Detected Salmonella Detection by PCR Not Detected Not Detected Vibrio Detection by PCR Not Detected Not Detected Vibrio cholerae Detection by PCR Not Detected Not Detected Yersinia enterocolitica Detection by PCR Not Detected Not Detected Enteroaggregative E coli EAEC Detection by PCR Not Detected Not Detected Enteropathogenic E coli EPEC Detection Not Detected Not Detected Enterotoxigenic E coli ETEC LTST Detection Not Detected Not Detected Shiga-like toxin producing E coli STEC STX1 STX2 Det Not Detected Not Detected Shigella Enteroinvasive E coli EIEC Detection Not Detected Not Detected Cryptosporidium Detection by PCR Not Detected Not Detected Cyclospora cayetanensis Detection by PCR Not Detected Not Detected Entamoeba histolytica Detection by PCR Not Detected Not Detected Giardia lamblia Detection by PCR Not Detected Not Detected Adenovirus F 40 41 Detection by PCR Not Detected Not Detected Astrovirus Detection by PCR Not Detected Not Detected Norovirus GI GII Detection by PCR Not Detected Sapovirus Detection by PCR Not Detected Not Detected Rotavirus A Detection by PCR Not Detected Not Detected CLOSTRIDIUM DIFFICILE TOXIN Reviewed date:05/08/2025 03:43:30 PM Interpretation: Performing Lab: Notes/Report: Clostridium difficile GDH Antigen Negative Negative C difficile Toxins A+B, EIA Negative Negative NEGATIVE FOR TOXIN PRODUCING CLOSTRIDIOIDES DIFFICILE, NO ADDITIONAL TESTING IS NECESSARY. BORRELIA BURGDORFERI ANTIBOD Y Reviewed date:12/06/2024 12:06:22 PM Interpretation: Performing Lab: Notes/Report: Lyme Ab Negative Negative No laboratory evidence of infection with B. burgdorferi (Lyme disease). Negative results may occur in patients recently infected (<=14 days) with B. burgdorferi. If recent infection is suspected, repeat testing on a new sample collected in 7-14 days is recommended. US HEAD NECK SOFT TISSUE Reviewed date:01/24/2025 01:16:29 PM Interpretation: Performing Lab: Notes/Report: Note See Note [facility], a member of [facility] Patient Name: MARÍA PHILLIPS Date of : 1965 Reason for Exam: cervicalgia Exam Date: 01/24/2025 [id number] EST Report Status: Final Ordering Provider: CHINO YBARRA PCP: IKER ROBLERO [facility]: Pain. Symptoms for 6 [...] smooth. Right lobe echogenicity: Homogeneous Right lobe vasculari ty: Normal The [...] Signed Date: 025 08:00 ET Workstation ID: [id number] Transcribed By: Self Edit Transcribed Date: 01/24/2025 07:55 ET HEMOGLOBIN A1C Reviewed date:05/06/2025 03:59:06 PM Interpretation: Performing Lab: Notes/Report: Hemoglobin A1C 5.7 <6.5 % Mean Bld Glu Estim. 117 COMPREHENSIVE METABOLIC PANE L Reviewed date:05/05/2025 05:25:25 PM Interpretation: Performing Lab: Notes/Report: Sodium 139 133-145 mmol/L Potassium 4.0 3.5-5.5 mmol/L Chloride 105 96-110 mmol/L CO2 27 21-32 mmol/L Anion Gap 7 3-11 Glucose 81 70-100 mg/dL BUN 6 5-25 mg/dL Creatinine 0.86 0.50-1.10 mg/dL eGFR 79 >=60 mL/min/1.73m2 Calculation based on the Chronic Kidney Disease Epidemiology Collaboration (CKD-EPI) equation refit without adjustment for race. BUN/Creatinine Ratio 7.0 Calcium 9.9 8.5-10.5 mg/dL AST (SGOT) 15 10-42 unit/L ALT (SGPT) 29 10-60 unit/L Alkaline Phosphatase 106 42-121 unit/L Total Protein 7.2 6.0-8.0 g/dL Albumin 3.9 3.2-5.0 g/dL Total Bilirubin 0.4 0.0-1.4 mg/dL XR FLUORO UP TO 1 HOUR Reviewed date:03/11/2025 11:47:24 AM Interpretation: Performing Lab: Notes/Report: Note See Note [facility], a member of [facility] Patient Name: MARÍA PHILLIPS Date of : 1965 Reason for Exam: pain Exam Date: 03/11/2025 [id number] EST Report Status: Final Ordering Provider: DAVID TRIVEDI PCP: IKER ROBLERO Fluoroscopic spot radiographs obtained during lumbar epidural injection are submitted. No radiologist consultation was requested or provided during this procedure and there is no radiologist professional charge. This report is generated for documentation purposes only. The dose for this procedure was 4.31 mGy. PQRI CPT II G9500 -------- FINAL REPOR T -------- Dictated By: Mauro Wright Dictated Date: 03/11/2025 11:02 ET Assigned Physician: Mauro Wright Reviewed and Electronically Signed By: Mauro Wright Signed Date: 11:03 ET Workstation ID: [id number] Transcribed By: Self Edit Transcribed Date: 03/11/2025 11:02 ET XR FLUORO UP TO 1 HOUR Reviewed date:02/04/2025 05:11:16 PM Interpretation: Performing Lab: Notes/Report: Note See Note [facility], a member of [facility] Patient Name: MARÍA PHILLIPS Date of : 1965 Reason for Exam: pain Exam Date: 02/04/2025 [id number] EST Report Status: Final Ordering Provider: DAVID TRIVEDI PCP: IKER ROBLERO EXAMINATION: Imaging assistance provided [...] Electronically Signed By: Alexey Morton Signed Date: 12:53 ET Workstation ID: [id number] Transcribed By: Self Edit Transcribed Date: 02/04/2025 12:51 ET XR SHOULDER 2+ VIEWS BILAT Reviewed date:01/08/2025 05:02:44 PM Interpretation: Performing Lab: Notes/Report: Note See Note [facility], a member of [facility] Patient Name: MARÍA PHILLIPS Date of : 1965 Reason for Exam: bilateral shoulder pain Exam Date: 01/08/2025 [id number] EST Report Status: Final Ordering Provider: CAMILO [...] calcific tendinitis and narrowing of subacromial space CAMILO IFA WITH TITER AND GIOVANNA RN Reviewed date:11/01/2024 07:38:11 AM Interpretation: Performing Lab: Notes/Report: CAMILO Negative Negative C REACTIVE PROTEIN, HIGH SEN SITIVITY Reviewed [...] HRT may need to be calibrated downward. RHEUMATOID FACTOR Reviewed date:10/28/2024 04:25:29 PM Interpretation: Performing Lab: Notes/Report: Rheumatoid Factor 152.0 <15.0 I Unit/mL SEDIMENTATION RATE Reviewed date:10/28/2024 04:25:48 PM Interpretation: Performing Lab: Notes/Report: Sed Rate 4 0-30 mm/hr CREATINE KINASE Reviewed date:03/24/2025 07:44:57 AM Interpretation: Performing Lab: Notes/Report: Total CK 87 22-269 unit/L FERRITIN Reviewed date:10/28/2024 04:25:26 PM Interpretation: Performing Lab: Notes/Report: Ferritin 28 8-252 ng/mL FERRITIN Reviewed date:03/05/2025 07:31:08 PM Interpretation: Performing Lab: Notes/Report: Ferritin 58 8-252 ng/mL US HEAD NECK SOFT TISSUE Reviewed date:02/10/2025 05:04:59 PM Interpretation: Performing Lab: Notes/Report: Note See Note [facility], a member of [employer] Patient Name: MARÍA PHILLIPS Date of : 1965 Reason for Exam: ENLARGED LYMPHNODE Exam Date: 02/08/2025 [id number] EST Report Status: Final Ordering Provider: CHINO YBARRA PCP: IKER ROBLERO EXAMINATION: US , LE FT AXILLA CLINICAL INFORMATION: Left axillary pain a nd swelling COMPARISON: None. TECHNIQUE: High-frequency linea r transducer examination with attention to the area of clinical concern Frequency linear transducer examination with attention to the area of pain and swelling in the left axilla FINDINGS: QUALITY: Adequate No suspicious mass. No suspicious area o f altered echotexture. The skin and superficial muscular fascia appear well defined. There is no abnormal color signal. IMPRESSION: No etiology for symptoms demonstrated. The patient should b e managed on the basis of the clinical exam, history and any pertinent laboratory values -------- FINAL REPOR T -------- Dictated By: Alexey Vera Dictated Date: 02/08/2025 15:52 ET Assigned Physician: Alexey Morton Reviewed and Electronically Signed By: Alexey Morton Signed Date: 025 15:55 ET Workstation ID: [id number] Transcribed By: Self Edit Transcribed Date: 02/08/2025 15:52 ET FOLATE Reviewed date:03/05/2025 07:31:03 PM Interpretation: Performing Lab: Notes/Report: Folate 7.2 2.8-17.0 ng/ml IRON AND TIBC Reviewed date:10/28/2024 04:25:22 PM Interpretation: Performing Lab: Notes/Report: Iron 41 40-150 mcg/dL TIBC 392 250-450 mcg/dL Iron Saturation 10 15-50 % IRON AND TIBC Reviewed date:03/05/2025 07:31:56 PM Interpretation: Performing Lab: Notes/Report: Iron 71 40-150 mcg/dL TIBC 417 250-450 mcg/dL Iron Saturation 17 15-50 % VITAMIN B12 Reviewed date:03/05/2025 07:31:11 PM Interpretation: Performing Lab: Notes/Report: Vitamin B-12 463 250-900 pcg/mL XR CERVICAL SPINE 4-5 VIEWS Reviewed date:11/19/2024 04:14:57 PM Interpretation: Performing Lab: Notes/Report: Note See Note [facility], a member of [facility] Patient Name: MARÍA PHILLIPS Date of : 1965 Reason for Exam: OTHER Exam Date: 11/18/2024 [id number] EST Report Status: Final Ordering Provider: IKER [...] to the prior [place] ([id number]) -------- FINAL REPOR T -------- Dictated By: Dayami Walker i Dictated Date: 11/19/2024 13:40 ET Assigned Physician: Dayami Diehl Reviewed and Electronically Signed By: Dayami Diehl Signed Date: 13:45 ET Workstation ID: [id number] Transcribed By: Self Edit Transcribed Date: 11/19/2024 13:40 ET HEMOGLOBIN A1C Reviewed date:10/29/2024 11:55:59 AM Interpretation: Performing Lab: Notes/Report: Hemoglobin A1C 5.4 <6.5 % Mean Bld Glu Estim. 108 THYROID STIMULATING HORMONE WITH REFLEX TO FREE T4 AND FREE T3 Reviewed date:03/06/2025 07:35:25 AM Interpretation: Performing Lab: Notes/Report: TSH 1.43 0.40-4.00 mcIU/mL URINALYSIS WITH REFLEX MICRO SCOPIC AND CULTURE Reviewed date:01/21/2025 02:02:02 PM Interpretation: Performing Lab: Notes/Report: Specific Dresher Urine 1.034 1.003-1.030 pH, Urine 6.5 5.0-8.0 pH Leukocytes, Urine Negative Negative Nitrite, Urine Negative Negative Protein, Urine Trace <=Trace mg/dL Glucose, Urine Negative Negative mg/dL Ketones, Urine Negative Negative mg/dL Urobilinogen, Urine 0.2 0.2-1.0 mg/dL Bilirubin, Urine Negative Negative Blood, Urine Negative Negative URINALYSIS WITH REFLEX MICRO SCOPIC AND CULTURE Reviewed date:03/24/2025 07:44:34 AM Interpretation: Performing Lab: Notes/Report: Specific Dresher Urine 1.010 1.003-1.030 pH, Urine 8.0 5.0-8.0 pH Leukocytes, Urine Negative Negative Nitrite, Urine Negative Negative Protein, Urine Negative <=Trace mg/dL Glucose, Urine Negative Negative mg/dL Ketones, Urine Negative Negative mg/dL Urobilinogen, Urine 0.2 0.2-1.0 mg/dL Bilirubin, Urine Negative Negative Blood, Urine Negative Negative COMPREHENSIVE METABOLIC PANE L Reviewed date:03/24/2025 07:44:44 AM Interpretation: Performing Lab: Notes/Report: Sodium 141 133-145 mmol/L Potassium 4.0 3.5-5.5 mmol/L Chloride 107 96-110 mmol/L CO2 27 21-32 mmol/L Anion Gap 7 3-11 Glucose 95 70-100 mg/dL BUN 11 5-25 mg/dL Creatinine 0.77 0.50-1.10 mg/dL eGFR 90 >=60 mL/min/1.73m2 Calculation based on the Chronic Kidney Disease Epidemiology Collaboration (CKD-EPI) equation refit without adjustment for race. BUN/Creatinine Ratio 14.3 Calcium 8.9 8.5-10.5 mg/dL AST (SGOT) 19 10-42 unit/L ALT (SGPT) 25 10-60 unit/L Alkaline Phosphatase 92 42-121 unit/L Total Protein 6.6 6.0-8.0 g/dL Albumin 3.5 3.2-5.0 g/dL Total Bilirubin 0.3 0.0-1.4 mg/dL COMPREHENSIVE METABOLIC PANE L Reviewed date:10/28/2024 04:25:35 [...] 3.2-5.0 g/dL Total Bilirubin 0.3 0.0-1.4 mg/dL COMPREHENSIVE METABOLIC PANE L Reviewed date:03/05/2025 07:31:45 PM Interpretation: Performing Lab: Notes/Report: Sodium 136 133-145 mmol/L Potassium 4.5 3.5-5.5 mmol/L Chloride 103 96-110 mmol/L CO2 27 21-32 mmol/L Anion Gap 6 3-11 Glucose 85 70-100 mg/dL BUN 14 5-25 mg/dL Creatinine 0.78 0.50-1.10 mg/dL eGFR 89 >=60 mL/min/1.73m2 Calculation based on the Chronic Kidney Disease Epidemiology Collaboration (CKD-EPI) equation refit without adjustment for race. BUN/Creatinine Ratio 17.9 Calcium 9.3 8.5-10.5 mg/dL AST (SGOT) 16 10-42 unit/L ALT (SGPT) 30 10-60 unit/L Alkaline Phosphatase 105 42-121 unit/L Total Protein 7.1 6.0-8.0 g/dL Albumin 3.8 3.2-5.0 g/dL Total Bilirubin 0.4 0.0-1.4 mg/dL MAGNESIUM Reviewed date:03/05/2025 07:32:01 PM Interpretation: Performing Lab: Notes/Report: Magnesium 2.3 1.9-2.6 mg/dL MAGNESIUM Reviewed date:03/24/2025 07:44:48 AM Interpretation: Performing Lab: Notes/Report: Magnesium 2.2 1.9-2.6 mg/dL THYROID STIMULATING HORMONE Reviewed date:03/24/2025 07:44:38 AM Interpretation: Performing Lab: Notes/Report: TSH 0.79 0.40-4.00 mcIU/mL THYROID STIMULATING HORMONE Reviewed date:10/28/2024 04:25:11 PM Interpretation: Performing Lab: Notes/Report: TSH 0.60 0.40-4.00 mcIU/mL VITAMIN D 25 HYDROXY Reviewed date:03/06/2025 07:35:20 AM Interpretation: Performing Lab: Notes/Report: Vit D, 25-Hydroxy 30.1 30.0-80.0 ng/mL VITAMIN D 25 HYDROXY Reviewed date:10/28/2024 04:25:14 PM Interpretation: Performing Lab: Notes/Report: Vit D, 25-Hydroxy 40.6 30.0-80.0 ng/mL LIPID PANEL WITH REFLEX TO D IRECT LDL Reviewed date:10/28/2024 04:25:18 PM Interpretation: Performing Lab: Notes/Report: Cholesterol 196 0-200 mg/dL Triglycerides 51 0-150 mg/dL HDL 111 >=40 mg/dL LDL Calculated 75 0-100 mg/dL VLDL Cholesterol Veronica 10.2 Non HDL Chol. (LDL+VLDL) 85 <145 mg/dL Chol/HDL Ratio 1.8 0.0-4.4 CBC WITH AUTO DIFFERENTIAL Reviewed date:03/24/2025 07:49:47 AM Interpretation: Performing Lab: Notes/Report: WBC 7.6 4.8-10.8 K/mcL RBC 4.00 3.80-4.80 M/mcL Hemoglobin 12.9 11.5-16.0 g/dL Hematocrit 38.7 35.0-47.0 % MCV 97.7 79.0-98.0 FL MCH 32.6 27.0-32.0 pcg MCHC 33.3 32.0-37.0 g/dL RDW 14.6 11.0-15.0 % Platelets 284 130-400 K/mcL MPV 9.5 7.0-11.0 FL NRBC 0.0 <1.0 % NRBC Absolute 0.00 <0.10 K/mcL Neutrophils Relative 53.8 Lymphocytes Relative 36.3 Monocytes Relative 7.8 Eosinophils Relative 1.3 Basophils Relative 0.3 Immature Granulocytes Relative 0.5 Neutrophils Absolute 4.06 1.50-7.00 K/mcL Lymphocytes Absolute 2.74 1.00-5.00 K/mcL Monocytes Absolute 0.59 0.20-1.00 K/mcL Eosinophils Absolute 0.10 0.00-0.50 K/mcL Basophils Absolute 0.02 0.00-0.20 K/mcL Immature Granulocytes Absolute 0.04 0.00-0.03 K/mcL CBC WITH AUTO DIFFERENTIAL Reviewed date:03/05/2025 07:32:33 PM Interpretation: Performing Lab: Notes/Report: WBC 7.1 4.8-10.8 K/mcL RBC 4.20 3.80-4.80 M/mcL Hemoglobin 13.5 11.5-16.0 g/dL Hematocrit 42.0 35.0-47.0 % MCV 99.8 79.0-98.0 FL MCH 32.1 27.0-32.0 pcg MCHC 32.1 32.0-37.0 g/dL RDW 14.6 11.0-15.0 % Platelets 298 130-400 K/mcL MPV 9.4 7.0-11.0 FL NRBC 0.0 <1.0 % NRBC Absolute 0.00 <0.10 K/mcL Neutrophils Relative 53.7 Lymphocytes Relative 33.8 Monocytes Relative 8.6 Eosinophils Relative 2.9 Basophils Relative 0.6 Immature Granulocytes Relative 0.4 Neutrophils Absolute 3.82 1.50-7.00 K/mcL Lymphocytes Absolute 2.41 1.00-5.00 K/mcL Monocytes Absolute 0.61 0.20-1.00 K/mcL Eosinophils Absolute 0.21 0.00-0.50 K/mcL Basophils Absolute 0.04 0.00-0.20 K/mcL Immature Granulocytes Absolute 0.03 0.00-0.03 K/mcL CBC WITH AUTO DIFFERENTIAL Reviewed date:10/28/2024 04:25:45 [...] K/mcL Immature Granulocytes Absolute 0.05 0.00-0.03 K/mcL Anti-La (SS-B) Ab (RDL)-5203 20 Reviewed date:02/11/2025 07:42:47 AM Interpretation: Performing Lab:[facility], [address] [place] [address], [place], Phone - [phone], Director - Elsa Notes/Report: Test(s) 979184-Wepm-Eq-9 Ab (RDL) was developed and its performance characteristics determined by [facility]. It has not been cleared or approved by the Food and Drug Administration. Anti-La (SS-B) Ab (RDL) <20 <20 Units Negative: <20 Weak Positive: 20-39 Moderate Positive: 40-80 Strong Positive: >80 Anti-Sm Ab (RDL)-714645 Reviewed date:02/11/2025 07:42:50 AM Interpretation: Performing Lab:[facility] [address], Phone - [phone], [facility] Notes/Report: Test(s) 500853-Pdge-Ia-2 Ab (RDL) was developed and its performance characteristics determined by [facility]. It has not been cleared or approved by the Food and Drug Administration. Anti-Sm Ab (RDL) <20 <20 Units Negative: <20 Weak Positive: 20-39 Moderate Positive: 40-80 Strong Positive: >80 Anti-Ro (SS-A) Ab (RDL)-5200 10 Reviewed date:02/11/2025 07:42:55 AM Interpretation: Performing Lab:[facility] [address], Phone - [phone], [facility] Notes/Report: Test(s) 698189-Zgjn-Lo-6 Ab (RDL) was developed and its performance characteristics determined by [facility]. It has not been cleared or approved by the Food and Drug Administration. Anti-Ro (SS-A) Ab (RDL) <20 <20 Units Negative: <20 Weak Positive: 20-39 Moderate Positive: 40-80 Strong Positive: >80 Anti-Mi-2 Ab (RDL)-952950 Reviewed date:02/11/2025 07:42:59 AM Interpretation: Performing Lab:[facility] [address], Phone - [phone], [facility] Notes/Report: Test(s) 635087-Mvez-Do-8 Ab (RDL) was developed and its performance characteristics determined by [facility]. It has not been cleared or approved by the Food and Drug Administration. Anti-Mi-2 Ab (RDL) Negative Negative Comp. Metabolic Panel ([phone] 12357 Reviewed date:02/11/2025 07:43:25 AM Interpretation: Performing Lab:[facility], Phone - [phone], [facility] Notes/Report: Test(s) 312482-Xnxf-Pf-5 Ab (RDL) was developed and its performance characteristics determined by [facility]. It has not been cleared or approved by the Food and Drug Administration. Glucose 73 70-99 mg/dL BUN 8 6-24 mg/dL Creatinine 0.75 0.57-1.00 mg/dL eGFR 93 >59 mL/min/1.73 BUN/Creatinine Ratio 11 9-23 Sodium 140 134-144 mmol/L Potassium 4.4 3.5-5.2 mmol/L Chloride 100 96-106 mmol/L Carbon Dioxide, Total 23 20-29 mmol/L Calcium 9.9 8.7-10.2 mg/dL Protein, Total 7.0 6.0-8.5 g/dL Albumin 4.6 3.8-4.9 g/dL Globulin, Total 2.4 1.5-4.5 g/dL Bilirubin, Total 0.3 0.0-1.2 mg/dL Alkaline Phosphatase 103 44-121 IU/L AST (SGOT) 18 0-40 IU/L ALT (SGPT) 13 0-32 IU/L Qcea-Ur-5-864555 Reviewed date:02/11/2025 07:43:02 AM Interpretation: Performing Lab:[facility], Phone - [phone], Director - [facility] Notes/Report: Test(s) 988835-Orqt-Xj-1 Ab (RDL) was developed and its performance characteristics determined by [facility]. It has not been cleared or approved by the Food and Drug Administration. Anti-Lakisha-1 <0.2 0.0-0.9 AI Creatine Kinase (CK), MB-120 816 Reviewed date:02/11/2025 07:43:06 AM Interpretation: Performing Lab[facility], Phone - [phone], Director - [facility] Notes/Report: Test(s) 569300-Yuhr-Cx-8 Ab (RDL) was developed and its performance characteristics determined by [facility]. It has not been cleared or approved by the Food and Drug Administration. Creatine Kinase (CK), MB 1.4 0.0-5.3 ng/mL C-Reactive Protein, Cardiac- 575590 Reviewed date:02/11/2025 07:43:09 AM Interpretation: Performing Lab:[facility], [address] [place] [address], Phone - [phone], Director - [facility] Notes/Report: Test(s) 364543-Mvdj-Wq-5 Ab (RDL) was developed and its performance characteristics determined by [facility]. It has not been cleared or approved by the Food and Drug Administration. C-Reactive Protein, Cardiac 1.34 0.00-3.00 mg/L Relative Risk for Future Cardiovascular Event Low <1.00 Average 1.00 - 3.00 High >3.00 Anti-dsDNA Antibodies-816424 Reviewed date:02/11/2025 07:43:13 AM Interpretation: Performing Lab:[facility] [address], Phone - [phone], Director - [facility] Notes/Report: Test(s) 519430-Arsy-Jz-8 Ab (RDL) was developed and its performance characteristics determined by [facility]. It has not been cleared or approved by the Food and Drug Administration. Anti-DNA (DS) Ab Qn 1 0-9 IU/mL Negative <5 Equivocal 5 - 9 Positive >9 Complement C3, Serum-132580 Reviewed date:02/11/2025 07:43:16 AM Interpretation: Performing Lab:[facility] [address], Phone - [phone], Director - [facility] Notes/Report: Test(s) 863866-Fstu-Ii-9 Ab (RDL) was developed and its performance characteristics determined by [facility]. It has not been cleared or approved by the Food and Drug Administration. Complement C3, Serum 119 82-167 mg/dL Sedimentation Rate-Westergre n-255985 Reviewed date:02/11/2025 07:42:43 AM Interpretation: Performing Lab:[facility] [address], Phone - [phone], Director - [facility] Notes/Report: Test(s) 422508-Jsti-Xg-7 Ab (RDL) was developed and its performance characteristics determined by [facility]. It has not been cleared or approved by the Food and Drug Administration. Sedimentation Rate-Westergren 14 0-40 mm/hr Maryan Barnett CMP14 Default A hand-written panel/profile was received from your office. In accordance with the [facility] Ambiguous Test Code Policy dated May 2003, we have completed your order by using the closest currently or formerly recognized AMA panel. We have assigned Comprehensive Metabolic Panel (14), Test Code #[id number] to this request. If this is not the testing you wished to receive on this specimen, please contact the [facility] Client Inquiry/Technical Services Department to clarify the test order. We appreciate your business. CBC With Differential/Platel et-[id number] Reviewed date:02/11/2025 07:43:32 AM Interpretation: Performing Lab:[facility], [address] [place] [address], [place], Phone - [phone], Director - Elsa Notes/Report: Test(s) 722679-Xmox-Rk-5 Ab (RDL) was developed and its performance characteristics determined by [facility]. It has not been cleared or approved by the Food and Drug Administration. WBC 7.6 3.4-10.8 x10E3/uL RBC 4.48 3.77-5.28 x10E6/uL Hemoglobin 14.1 11.1-15.9 g/dL Hematocrit 42.1 34.0-46.6 % MCV 94 79-97 fL MCH 31.5 26.6-33.0 pg MCHC 33.5 31.5-35.7 g/dL RDW 12.8 11.7-15.4 % Platelets 379 150-450 x10E3/uL Neutrophils 56 Not Estab. % Lymphs 33 Not Estab. % Monocytes 7 Not Estab. % Eos 3 Not Estab. % Basos 1 Not Estab. % Neutrophils (Absolute) 4.3 1.4-7.0 x10E3/uL Lymphs (Absolute) 2.5 0.7-3.1 x10E3/uL Monocytes(Absolute) 0.5 0.1-0.9 x10E3/uL Eos (Absolute) 0.2 0.0-0.4 x10E3/uL Baso (Absolute) 0.0 0.0-0.2 x10E3/uL Immature Granulocytes 0 Not Estab. % Immature Grans (Abs) 0.0 0.0-0.1 x10E3/uL Complement C4, Serum-[id number] Reviewed date:02/11/2025 07:43:19 AM Interpretation: Performing Lab:[facility], [address] [facility], [place], Phone - [phone], Director - Elsa Notes/Report: Test(s) 258635-Kltf-Lm-2 Ab (RDL) was developed and its performance characteristics determined by [facility]. It has not been cleared or approved by the Food and Drug Administration. Complement C4, Serum 18 12-38 mg/dL EKG (Not yet reviewed by pro vider) Interpretation: Performing Lab: Notes/Report: ECGDiastolicBP 68 ECGHr 73 ECGPRInterval 158 ECGPWaveAxis 34 ECGQRSDuration 78 ECGQrsWaveAxis 33 ECGQTcInterval 404 ECGQTInterval 382 ECGSystolicBP 116 ECGTWaveAxis 31 RR_DiastolicBP 0 RR_MaxRRInterval 0 RR_MeanHR 0 RR_MeanRRInterval 0 RR_MinRRInterval 0 RR_NumBeats 0 RR_NumNormalBeats 0 RR_SystolicBP 0 XR KNEE 4+ VIEWS BILAT Reviewed date:01/27/2025 08:06:07 AM Interpretation: Performing Lab: Notes/Report: Note See Note [facility], a member of [facility] Patient Name: MARÍA PHILLIPS Date of : 1965 Reason for Exam: ilateral knee pain Exam Date: 01/22/2025 [id number] EST Report Status: Final Ordering Provider: CELIA [...] intercondylar notch. No seeming effusion. Neutral alignment. XR ESOPHAGRAM Reviewed date:01/01/2025 09:27:26 AM Interpretation: Performing Lab: Notes/Report: Note See Note [facility], a member of [facility] Patient Name: MARÍA PHILLIPS Date of : 1965 Reason for Exam: DYSPHAGIA Exam Date: 12/26/2024 [id number] EST Report Status: Final Ordering Provider: BARBARA MORRISSEY PCP: IKER ROBLERO FINDINGS: Double contrast esophagram performed. COMPARISON: Esophagr am March 04, 2022 HISTORY: Patient is a 59-year-old female with history of globus sensation. Epigastric pain. Mechanist radiographs: 1 view chest radiograph demonstrates cardiac [...] episode of flash laryngeal penetration occurred, without shlomo aspiration. There is no residual in the [...] Signed Date: 025 08:28 ET Workstation ID: [id number] Transcribed By: Self Edit Transcribed Date: 12/26/2024 13:36 ET Resident/PA/TOURIST CABIN KEEPER: Lidia Godinez MAMMO DIGITAL SCREENING W HERACLIO BILAT Reviewed date:02/06/2025 11:57:46 AM Interpretation: Performing Lab: Notes/Report: Note See Note [facility], a member of [employer] Patient Name: MARÍA PHILLIPS Date of : 1965 Reason for Exam: SCREENING Exam Date: 02/05/2025 [id number] EST Report Status: Final Ordering Provider: IKER [...] is recommended in 1 year. Mammo Location: [facility] er For Mammography at [facility], [address] [place] [address], [phone], . -------- FINAL REPOR T -------- Dictated By: Stefani Zamora Dictated Date: 02/06/2025 09:43 ET Assigned Physician: Stefani Zamora Reviewed and Electronically Signed By: Stefani Zamora Signed Date: 025 09:45 ET Workstation ID: [id number] Transcribed By: Self Edit Transcribed Date: 02/06/2025 09:43 ET Reason For Referral Reason [facility] Diagnosis 1 Shoulder pain, unspe cified chronicity, unspecified laterality (M25.519) Referral Organization [facility] [address] Referring Provider First Name IKER Referring Provider Last Name ANNIKA Referring Provider Speciality Preventive Medicine Referred Provider Specialty Orthopedic S urgery General Notes Letitia Cox 025 10:47:57 AM > Referral faxed over to [facility] for Bilateral shoulder pain P. [phone] Referral Priority Routine Reason Sleep Medicine [facility]; sleep study; loud snoring Diagnosis 1 Loud snoring (R06.83 ) Referral Organization [facility] [address] Referring Provider First Name IKER Referring Provider Last Name ANNIKA Referring Provider Speciality Preventive Medicine Referred Provider Specialty Sleep Medici ne General Notes [address] [facility] [address] [place] (p) [phone], (f) [phone] Clinical Notes Maryann Cox 02:10:39 PM > I called the office and they informed me that they had reached out to the patient and are just waiting for a callback to schedule an appt Referral Priority Routine Reason pain management : ri ght rib pain Diagnosis 1 Rib pain on right si de (R07.81) Referral Organization [facility] [address] Referring Provider First Name IKER Referring Provider Last Name CANTERBURY Referring Provider Speciality Preventive Medicine Referred Provider Specialty Pain Medicin e Clinical Notes Zoila Narayanan 04/25 09:57:57 AM > [facility], Address: [address] [place] [address], , Fax number: Referral Priority Routine Reason [facility]; easy bruising Diagnosis 1 Easy bruising (R23.3 ) Referral Organization [facility] [address] Referring Provider First Name IKER Referring Provider Last Name CANTERBURY Referring Provider Speciality Preventive Medicine Referred Provider Specialty Dermatology General Notes [address], (p) [phone], (f) [phone] Clinical Notes Caren Narayanan 08:43:03 AM > referral faxed with notes Referral Priority Routine Medications Medication SIG (Take, Route, Frequency, Duration) Notes Start Date End Date Status Orencia ClickJect 125 MG/ML Subcutaneous; Duration: 28 Days Not-Taking clonazePAM 0.5 MG Oral; Duration: 30 Days Not-Taking traMADol HCl 50 MG 1 tablet as needed f or severe pain Orally every 4-6 hours; Duration: 14 days 01/22/2025 Not-Taking ZyrTEC 10 MG 1 tablet Orally Once a day Active LORazepam 0.5 MG 1 tablet at bedtime as needed Orally 3 times a day Active Gabapentin 300 MG 1 capsule Orally 3 times a day Active Estradiol 0.0375 MG/24HR Transdermal; Du ration: 84 Days Not-Taking Venlafaxine HCl ER 37.5 MG TAKE 1 TABLET BY MOUTH EVERY DAY Oral; Duration: 90 Days Not-Taking Problems Problem Type SNOMED Code ICD Code Onset Dates Problem Status W/U Status Risk Notes Problem Hyperkalemia (42158038) Hyperkalemia (E87.5) Active confirmed Problem Chronic pain syndrome (281692757) Chronic pain syndrome (G89.4) Active confirmed Problem Pulmonary nodule (837985003) Pulmonary nodule (R91.1) Active confirmed Problem Breathing painful (92948123) Rib pain on right side (R07.81) Active confirmed Problem Tremor (10653545) Tremor (R25.1) Active confirm ed Problem Chronic fatigue syndrome (76736674) Chronic fatigue (R53.82) Active confirmed Problem Paresthesia (finding) (85274768) Paresthesias (R20.2) Active confirmed Problem Mixed anxiety and depressive disorder (382212844) Depression with anxiety (F41.8) Active confirmed Problem 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 Problem Inactive tuberculosis (finding) (01282650) History of latent tuberculosis (Z86.15) Active confirmed Problem Rheumatoid arthritis (10372949) Rheumatoid arthritis involving multiple sites, unspecified whether rheumatoid factor present (M06.9) Active confirmed Problem Rheumatoid arthritis (77519923) Rheumatoid arthritis involving multiple sites with positive rheumatoid factor (M05.79) Active confirmed Problem Lymphadenopathy (91680461) Lymphadenopathy , axillary (R59.0) Active confirmed Problem Cervical spondylosis (143317386) Cervical spondylosis (M47.812) Active confirmed Problem General weakness (63281669) Generalized weakness (R53.1) Active confirmed Problem 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3 [facility] [address] [address] 11/18/2024 IKER ROBLERO Tremor R25.1 ; Cervi veronica spondylosis M47.812 ; Rock's disease E06.3 ; Pain in right arm M79.601 ; Pain in left arm M79.602 ; History of recent fall Z91.81 ; Rheumatoid arthritis involving multiple sites with positive rheumatoid factor M05.79 ; Slipped rib syndrome M94.0 and Depression with anxiety F41.8 [facility] [address] [address] 01/22/2025 CHINO BIRKS Neck pain on right s angela M54.2 ; Rheumatoid arthritis involving multiple sites with positive rheumatoid factor M05.79 ; Slipped rib syndrome M94.0 ; Rock's disease E06.3 and Depression with anxiety F41.8 [facility] [address] [address] 02/03/2025 CHINO BIRKS Lymphadenopathy, axillary R59.0 ; Rheumatoid arthritis involving multiple sites, unspecified whether rheumatoid factor present M06.9 ; Rock's disease E06.3 ; Slipped rib syndrome M94.0 ; Anxiety, generalized F41.1 and Tendon calcification M65.80 [facility] [address] [address] 03/05/2025 IKER ROBLREO Rib pain on right si de R07.81 ; Annual physical exam Z00.00 ; Chronic fatigue R53.82 ; Hyperkalemia E87.5 ; Slipped rib syndrome M94.0 ; Depression with anxiety F41.8 and Rheumatoid arthritis involving multiple sites with positive rheumatoid factor M05.79 [facility] [address] [address] 03/21/2025 IKER ROBLERO Heart palpitations R00.2 ; Weakness R53.1 and Dyspnea on exertion R06.09 [facility] [address] [address] 04/23/2025 IKER ROBLERO Depression with anxi ety F41.8 ; Heavy alcohol use F10.90 ; Chronic pain syndrome G89.4 ; Slipped rib syndrome M94.0 ; Rheumatoid arthritis involving multiple sites with positive rheumatoid factor M05.79 ; Pulmonary nodule R91.1 ; History of latent tuberculosis Z86.15 and Loud snoring R06.83 [facility] [address] [place] [address] 05/05/2025 IKER ROBLERO Spontaneous ecchymos es R23.3 ; Skin tear of left upper extremity S41.112A ; Irregular bowel habits R19.8 ; Depression with anxiety F41.8 ; Chronic pain syndrome G89.4 and Rheumatoid arthritis involving multiple sites with positive rheumatoid factor M05.79 [facility] [address] [place] [address] 10/29/2024 IKER LEDESMAHAM [facility] [address] [place] [address] 11/04/2024 IKER LEDESMAHAM [facility] [address] [place] [address] 11/07/2024 IKER LEDESMAHAM [facility] [address] [place] [address] 11/19/2024 IKER LEDESMAHAM [facility] [address] [place] [address] 12/03/2024 IKER LEDESMAHAM [facility] [address] [place] [address] 12/13/2024 IKER CANTERBURY [facility] [address] [place] [address] 12/13/2024 IKER ROBLERO Generalized weakness R53.1 and Paresthesias R20.2 [facility] [address] [place] [address] 12/16/2024 IKER LEDESMAHAM [facility] [address] [place] [address] 12/26/2024 IKER CANTERBURY [facility] [address] [place] [address] 12/31/2024 IKER CANTERBURY [facility] [address] [place] [address] 01/02/2025 IKER LEDESMAHAM [facility] [address] [place] [address] 01/07/2025 IKER LEDESMAHAM [facility] [address] [place] [address] 01/21/2025 IKER CANTERBURY [facility] [address] [place] [address] 01/24/2025 IKER CANTERBURY [facility] [address] [place] [address] 02/03/2025 IKER CANTERBURY [facility] [address] [place] [address] 02/03/2025 IKER CANTERBURY [facility] [address] [place] [address] 02/10/2025 IKER CANTERBURY [facility] [address] [place] [address] 03/05/2025 IKER CANTERBURY Chronic fatigue R53. 82 ; Elevated lipids E78.5 ; Anemia due to vitamin B12 deficiency, unspecified B12 deficiency type D51.9 and Vitamin D deficiency E55.9 [facility] [address] [place] [address] 03/05/2025 IKER CANTERBURY [facility] [address] [place] [address] 03/05/2025 IKER CANTERBURY [facility] [address] [place] [address] 03/05/2025 IKER CANTERBURY [facility] [address] [place] [address] 03/21/2025 IKER CANTERBURY [facility] [address] [place] [address] 03/24/2025 IKER CANTERBURY [facility] [address] [place] [address] 04/22/2025 IKER CANTERBURY [facility] [address] [place] [address] 04/25/2025 IKER CANTERBURY [facility] [address] [place] [address] 05/01/2025 IKER CANTERBURY [facility] [address] [place] [address] 05/05/2025 IKER CANTERBURY [facility] [address] [place] [address] 05/06/2025 IKER CANTERBURY [facility] [address] [place] [address] 05/13/2025 IKER ANNIKA [facility] [address] [place] [address] 05/13/2025 IKER CANTERBURY [facility] [address] [place] [address] 12/09/2024 IKER CANTERBURY [facility] [address] [place] [address] 12/13/2024 IKER CANTERBURY [facility] [address] [place] [address] 12/14/2024 IKER CANTERBURY [facility] [address] [place] [address] 12/14/2024 IKER CANTERBURY [facility] [address] [place] [address] 12/15/2024 IKER CANTERBURY [facility] [address] [place] [address] 12/18/2024 IKER CANTERBURY [facility] [address] [place] [address] 01/01/2025 IKER CANTERBURY [facility] [address] [place] [address] 01/21/2025 IKER CANTERBURY [facility] [address] [place] [address] 01/27/2025 IKER CANTERBURY Breast cancer screen ing by mammogram Z12.31 [facility] [address] [place] [address] 03/21/2025 IKER ANNIKA [facility] [address] [place] [address] 04/30/2025 IKER CANTERBURY [facility] [address] [place] [address] 05/01/2025 IKER CANTERBURY [facility] [address] [place] [address] 05/01/2025 IKER ROBLERO Assessments Encounter Date Diagnosis (ICD Code) Assessment [...] Patient reports history of RA. Follows with sign language translator Dr. Clark out of [place]. Has been treated previously with Humira, Enbrel, [...] to the cartilage which creates discomfort with inhalation/exhalation. States this was diagnosed by Dr. Dubon out of [place], [place]. Taking methocarbamol 750 mg 3 times daily and gabapentin 100 mg 3 times daily with moderate relief of discomfort. Patient awaiting surgical scheduling for correction. #Anxiety/depression: Patient reports she has had a challenging year as her slipped rib syndrome quite a long overlooked/undiagnosed . States she has felt many health care [...] reviewed. Dictation completed with the use of [email or web address] voice recognition software, prone to medical misidentifications [...] Patient reports history of RA. Follows with sign language translator Dr. Clark out of [place]. Has been treated previously with Humira, Enbrel, [...] to the cartilage which creates discomfort with inhalation/exhalation. States this was diagnosed by Dr. Dubon out of [place], [place]. Taking methocarbamol 750 mg 3 times daily and gabapentin 100 mg 3 times daily with moderate relief of discomfort. Patient awaiting surgical scheduling for correction. #Anxiety/depression: Patient reports she has had a challenging year as her slipped rib syndrome quite a long overlooked/undiagnosed . States she has felt many health care [...] reviewed. Dictation completed with the use of [email or web address] voice recognition software, prone to medical misidentifications [...] intact. Mild TTP of cervical spine - flexion/extension/rota tion of the neck appears unaffected. Given recent [...] for 11/20/2024. #Recent fall: Patient seen at [facility] ED 11/02/2024 s/p fall at work. [...] diffuse joint pain and fatigue. Follows with sign language translator Dr. Clark out of [place], records requested and not yet available for my review. 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 States this was diagnosed by Dr. Dubon out of [place], [place]. Taking methocarbamol 750 mg 3 times daily and gabapentin 100 mg twice daily with moderate relief of discomfort. Patient awaiting surgical scheduling for correction. #Anxiety/depression: Patient reports she has had a challenging year as her slipped rib syndrome quite a long overlooked/undiagnosed . States she has felt many health care [...] reviewed. Dictation completed with the use of [email or web address] voice recognition software, prone to medical misidentifications [...] intact. Mild TTP of cervical spine - flexion/extension/rota tion of the neck appears unaffected. Given recent [...] for 11/20/2024. #Recent fall: Patient seen at [facility] ED 11/02/2024 s/p fall at work. [...] diffuse joint pain and fatigue. Follows with sign language translator Dr. Clark out of [place], records requested and not yet available for my review. 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 States this was diagnosed by Dr. Dubon out of [place], [place]. Taking methocarbamol 750 mg 3 times daily and gabapentin 100 mg twice daily with moderate relief of discomfort. Patient awaiting surgical scheduling for correction. #Anxiety/depression: Patient reports she has had a challenging year as her slipped rib syndrome quite a long overlooked/undiagnosed . States she has felt many health care [...] reviewed. Dictation completed with the use of [email or web address] voice recognition software, prone to medical misidentifications [...] was diagnosed by Dr. Dubon out of [place], [place]. Taking methocarbamol 750 mg 3 times [...] Dictation was accomplished with the use of [email or web address] voice recognition software, which is prone to [...] was diagnosed by Dr. Dubon out of [place]. Taking methocarbamol 750 mg 3 times [...] Dictation was accomplished with the use of [email or web address] voice recognition software, which is prone to [...] was diagnosed by Dr. Dubon out of [place]. Taking methocarbamol 750 mg 3 times [...] Dictation was accomplished with the use of [employer] voice recognition software, which is prone to [...] was diagnosed by Dr. Dubon out of [place], [place]. Taking methocarbamol 750 mg 3 times [...] Dictation was accomplished with the use of [email or web address] voice recognition software, which is prone to medical misidentifications and grammatical errors. This are unintentional and the practitioner does try to identify and correct these, but some could still be present. Please do not hesitate to contact practitioner for clarification. 03/05/2025 Annual physical exam (ICD-10 - Z00.00) María is a 59-year-old female with a PMH of rheumatoid arthritis, anxiety, slipped rib syndrome, chronic pain that presents for CPE. #Slipped rib syndrome: Follows with Dr. Dubon with [facility]. Underwent repair 12/17/2024. #Ventral hernia: Surgical history of ventral hernia repair (2018). Reports that following the procedure to correct slipped rib (12/2024) she has had a sensation of burning across the abdomen. Dr. Dubon has initiated a workup including imaging which revealed the presence of numerous surgical clips (not placed during revision of slipped rib). Per patient, it is Dr. Dubon's recommendation that a revision of her ventral hernia repair take place with goal of removing excess surgical clips and improving the patient's symptoms. Records requested for review. #Rheumatoid arthritis: + Rheumatoid factor (152). Follows with sign language translator Dr. Joshua Castellanos out of [place]. Follow-up labs including CAMILO, ESR/CRP, and comprehensive antibodies to assess for secondary underlying autoimmune disease WNL. Due to start Orencia injections -this is currently on hold due to pending ventral hernia repair revision as she cannot take a biologic leading up to surgery. Currently taking tramadol 50mg PRN for pain. #Anxiety: Patient continues to struggle with anxiety in the setting of her complex medical needs and uncertain diagnoses. Follows with psychiatric provider Clarice Lara with [facility]. Taking clonazepam 0.5 mg once daily with adequate control of symptoms. PHQ-9: 8. Denies significant symptoms of depression, AVH, SI/HI. #Generalized pains/fatigue: Patient continues to present with a myriad of musculoskeletal complaints. She follows with numerous specialists including orthopedics, neurosurgery, and pain management (amongst others). She has had comprehensive workups including labs and imaging. Saw pain management 02/04/2025 for low back pain at which time a steroid injection was administered at level of L5/S1. Also saw orthopedics 01/22/2025 and 02/06/2025 for knee pain and shoulder/neck pain respectively -it appears additional steroid and/or viscosupplementation injections were offered which the patient has declined at this time. Given the diffuse involvement and ongoing nature of the patient's pain discussed goals of care. She understands that long-term use of opioid analgesic is not recommended and plans to continue to follow with pain management. Discussed option of nonopioid pain medication Journavx, patient is agreeable to trying this. Reviewed proper use/dosing as well as side effects including but not limited to skin rash, and kidney dysfunction. #Hyperkalemia: Patient reports she was at [facility] ED recently at which time her potassium was elevated. Patient does experience fatigue and muscle weakness, no worse than normal. CMP, Mg, CBC, vitamin D, B12/folate ordered for continued evaluation. Patient seen and examined. Comprehensive discussion was done on the followin. Discussed the importance of a diet rich in fruit, vegetables, legumes and healthy fats. Patient advised to avoid processed food and carbohydrates, added sugars, and saturated/trans fats. When possible, prepare your own meals and avoid fast food. Read nutrition labels - avoid ingredients including high fructose corn syrup and preservatives. Be contentious of daily calorie intake and weight. 2. Discussed the importance of regular physical activity. Recommended a goal 6-10k steps or 30 minutes of walking per day. Discussed the benefit of weight-bearing exercise and strength training with proper body mechanics/safety precautions. Other activities including cycling, hiking, etc. are recommended and encouraged. Patient advised to seek medical attention for any SOB, chest pain, muscle or joint pain associated with exercise. 3. Discussed risks and benefits of age-appropriate screening guidelines including but not limited to colonoscopy (UTD 08/28/23), mammogram (UTD 11/2024), breast examinations, and PAP smears (Due 03/2025). 4. Discussed safe driving, utilization of seat belts, and the importance of refraining from smartphone while driving. 5. Age-appropriate immunizations were discussed including but not limited to Shingles vaccine (recommended), pneumonia vaccine (UTD ), influenza vaccine (UTD ), Tdap (UTD 01/09/19), etc. All questions answered to the patients satisfaction. Patient demonstrates understanding of diagnosis and treatments discussed. Follow-up in 1 month, sooner should any questions/concerns arise. Case discussed with collaborating physician Velia Morrison who has reviewed the assessment/plan. Chart, medications, labs, and vital signs reviewed. Dictation completed with the use of [email or web address] voice recognition software, prone to medical misidentifications and grammatical errors. All errors are unintentional. Although the practitioner does try to identify and correct errors, some may be present. Please do not hesitate to contact the practitioner for clarification. Total time was 60 minutes spent with >50% on coordination of care and patient education. 03/05/2025 Rib pain on right side (ICD-10 - R07.81) María is a 59-year-old female with a PMH of rheumatoid arthritis, anxiety, slipped rib syndrome, chronic pain that presents for CPE. #Slipped rib syndrome: Follows with Dr. Dubon with [facility]. Underwent repair 12/17/2024. #Ventral hernia: Surgical history of ventral hernia repair (2018). Reports that following the procedure to correct slipped rib (12/2024) she has had a sensation of burning across the abdomen. Dr. Dubon has initiated a workup including imaging which revealed the presence of numerous surgical clips (not placed during revision of slipped rib). Per patient, it is Dr. Dubon's recommendation that a revision of her ventral hernia repair take place with goal of removing excess surgical clips and improving the patient's symptoms. Records requested for review. #Rheumatoid arthritis: + Rheumatoid factor (152). Follows with sign language translator Dr. Joshua Castellanos out of [place]. Follow-up labs including CAMILO, ESR/CRP, and comprehensive antibodies to assess for secondary underlying autoimmune disease WNL. Due to start Orencia injections -this is currently on hold due to pending ventral hernia repair revision as she cannot take a biologic leading up to surgery. Currently taking tramadol 50mg PRN for pain. #Anxiety: Patient continues to struggle with anxiety in the setting of her complex medical needs and uncertain diagnoses. Follows with psychiatric provider Clarice Lara with [facility]. Taking clonazepam 0.5 mg once daily with adequate control of symptoms. PHQ-9: 8. Denies significant symptoms of depression, AVH, SI/HI. #Generalized pains/fatigue: Patient continues to present with a myriad of musculoskeletal complaints. She follows with numerous specialists including orthopedics, neurosurgery, and pain management (amongst others). She has had comprehensive workups including labs and imaging. Saw pain management 02/04/2025 for low back pain at which time a steroid injection was administered at level of L5/S1. Also saw orthopedics 01/22/2025 and 02/06/2025 for knee pain and shoulder/neck pain respectively -it appears additional steroid and/or viscosupplementation injections were offered which the patient has declined at this time. Given the diffuse involvement and ongoing nature of the patient's pain discussed goals of care. She understands that long-term use of opioid analgesic is not recommended and plans to continue to follow with pain management. Discussed option of nonopioid pain medication Journavx, patient is agreeable to trying this. Reviewed proper use/dosing as well as side effects including but not limited to skin rash, and kidney dysfunction. #Hyperkalemia: Patient reports she was at [facility] ED recently at which time her potassium was elevated. Patient does experience fatigue and muscle weakness, no worse than normal. CMP, Mg, CBC, vitamin D, B12/folate ordered for continued evaluation. Patient seen and examined. Comprehensive discussion was done on the followin. Discussed the importance of a diet rich in fruit, vegetables, legumes and healthy fats. Patient advised to avoid processed food and carbohydrates, added sugars, and saturated/trans fats. When possible, prepare your own meals and avoid fast food. Read nutrition labels - avoid ingredients including high fructose corn syrup and preservatives. Be contentious of daily calorie intake and weight. 2. Discussed the importance of regular physical activity. Recommended a goal 6-10k steps or 30 minutes of walking per day. Discussed the benefit of weight-bearing exercise and strength training with proper body mechanics/safety precautions. Other activities including cycling, hiking, etc. are recommended and encouraged. Patient advised to seek medical attention for any SOB, chest pain, muscle or joint pain associated with exercise. 3. Discussed risks and benefits of age-appropriate screening guidelines including but not limited to colonoscopy (UTD 08/28/23), mammogram (UTD 11/2024), breast examinations, and PAP smears (Due 03/2025). 4. Discussed safe driving, utilization of seat belts, and the importance of refraining from smartphone while driving. 5. Age-appropriate immunizations were discussed including but not limited to Shingles vaccine (recommended), pneumonia vaccine (UTD ), influenza vaccine (UTD ), Tdap (UTD 01/09/19), etc. All questions answered to the patients satisfaction. Patient demonstrates understanding of diagnosis and treatments discussed. Follow-up in 1 month, sooner should any questions/concerns arise. Case discussed with collaborating physician Velia Morrison who has reviewed the assessment/plan. Chart, medications, labs, and vital signs reviewed. Dictation completed with the use of [email or web address] voice recognition software, prone to medical misidentifications and grammatical errors. All errors are unintentional. Although the practitioner does try to identify and correct errors, some may be present. Please do not hesitate to contact the practitioner for clarification. Total time was 60 minutes spent with >50% on coordination of care and patient education. 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 Patient has presented with these complaints in the past. States they have become more frequent/noticeable in the last week. Experiencing sensation of jumping and her chest and shortness of breath worse with exertion. Denies additional cardiac or pulmonary symptoms. On presentation the patient is vitally stable. Cardiac auscultation reveals RRR, no murmurs, rubs, or gallops. Lungs CTA. No focal neurologic deficit. Most recent ECG performed 11/18/2024 was NSR with low voltage QTc consistent with prior studies. No acute ischemic changes. Plan to repeat ECG today to assess for any changes. Will also order ECHO and labs including CBC, CMP, magnesium, TSH, and UA to assess for any potential infectious etiology, electrolyte abnormality, or thyroid dysfunction. Will also order CK as patient recently started Journavx which can elevate CK. Patient requesting tramadol, she has requested this in the past. She is encouraged to follow-up with her pain management provider to discuss options for pain regimen. Recommending alternating OTC Tylenol and ibuprofen, use of ice/heat, OTC lidocaine patches, and/or OTC Voltaren gel. ED protocol reviewed. She understands to dial 911/seek immediate medical attention should she develop symptoms including but not limited to persistent chest pain, sensation of irregular heartbeat, diaphoresis, confusion, persistent nausea/vomiting, etc. All questions answered to the patient's satisfaction. Patient demonstrates understanding of diagnosis and treatments discussed. Follow-up at next scheduled appointment, sooner should any questions/concerns arise. Case discussed with collaborating physician Velia Morrison who has reviewed the assessment/plan. Chart, medications, labs, and vital signs reviewed. Dictation completed with the use of [email or web address] voice recognition software, prone to medical misidentifications and grammatical errors. All errors are unintentional. Although the practitioner does try to identify and correct errors, some may be present. Please do not hesitate to contact the practitioner for clarification. 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 Patient has presented with these complaints in the past. States they have become more frequent/noticeable in the last week. Experiencing sensation of jumping and her chest and shortness of breath worse with exertion. Denies additional cardiac or pulmonary symptoms. On presentation the patient is vitally stable. Cardiac auscultation reveals RRR, no murmurs, rubs, or gallops. Lungs CTA. No focal neurologic deficit. Most recent ECG performed 11/18/2024 was NSR with low voltage QTc consistent with prior studies. No acute ischemic changes. Plan to repeat ECG today to assess for any changes. Will also order ECHO and labs including CBC, CMP, magnesium, TSH, and UA to assess for any potential infectious etiology, electrolyte abnormality, or thyroid dysfunction. Will also order CK as patient recently started Journavx which can elevate CK. Patient requesting tramadol, she has requested this in the past. She is encouraged to follow-up with her pain management provider to discuss options for pain regimen. Recommending alternating OTC Tylenol and ibuprofen, use of ice/heat, OTC lidocaine patches, and/or OTC Voltaren gel. ED protocol reviewed. She understands to dial 911/seek immediate medical attention should she develop symptoms including but not limited to persistent chest pain, sensation of irregular heartbeat, diaphoresis, confusion, persistent nausea/vomiting, etc. All questions answered to the patient's satisfaction. Patient demonstrates understanding of diagnosis and treatments discussed. Follow-up at next scheduled appointment, sooner should any questions/concerns arise. Case discussed with collaborating physician Velia Morrison who has reviewed the assessment/plan. Chart, medications, labs, and vital signs reviewed. Dictation completed with the use of [email or web address] voice recognition software, prone to medical misidentifications and grammatical errors. All errors are unintentional. Although the practitioner does try to identify and correct errors, some may be present. Please do not hesitate to contact the practitioner for clarification. 03/05/2025 Chronic fatigue (ICD-10 - R53.82) 04/23/2025 Depression with anxiety (ICD-10 - F41.8) María is a 59-year-old female with a PMH of RA, slipped rib syndrome, chronic pain that presents today for ER follow-up hospital follow-up. María presented to [facility] ED 04/19/2025 with chief complaint of suicidal ideation due to her chronic pain. At that time she endorsed poor quality of sleep, increased tobacco use, and increased alcohol use all secondary to her pain. ED workup significant for intoxicated ANIYAH of 132, otherwise WNL. Patient was admitted for voluntary psychiatric hold at that time. #Depression/Anxiety: Continues to endorse exacerbation of chronic depression due to unresolved chronic pain in the area of the right ribs. Denies having plan or intent to harm herself or others at this time. She has since established with therapist Shlomo Christian which she feels will be helpful, due to be seen 04/29/25. She additionally follows with psychiatric provider Clarice Lara regularly. Taking Zoloft 25mg daily and lorazepam 0.5mg up to TID. She understands the importance of taking her medications with compliance and as prescribed. ED protocol reviewed. #Alcohol use: At time of admission patient endorsed increased alcohol use with goal of controlling her pain. ANIYAH 132. Since time of discharge she denies any alcohol use. Denies seizure activity, involuntary movements, or AVH. #Chronic pain: Patient continues to struggle with ongoing right sided flank pain for over 3 years. 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 While inpatient patient received Tylenol, Dilaudid, and ketorolac for pain management. Not currently taking any pain medication. Previously followed with painter ordn[employer] Dr. Trivedi who provided steroid injections. Historically the patient has tried numerous nonopioid pain management medications including but not limited to ibuprofen, meloxicam, mirtazapine, baclofen, tizanidine, cyclobenzaprine, Tylenol, gabapentin, topical lidocaine patches, and Journavx - all of which are reported to be not helpful. Regularly requests opioid pain management. Given use of benzodiazepines and unclear alcohol use discussed risks with added opioid use. WIll refer to painter ordnance with goal of establishing safe pain management regimen. #RA: Follows with Joshua Castellanos MD out of [place]. Discussed possibility of chronic pain being related to untreated rheumatoid arthritis. She is strongly encouraged to follow-up with rheumatology as scheduled at the end of April and to also start her Orencia injection per their recommendations. #Lung Nodules: PMH of latent TB s/p treatment completion. Most recent chest CT 12/05/2024 reveals bilateral pulmonary nodules with recommended follow-up CT in [address] of the chest without contrast today. #Snoring: Patient reports that while inpatient she was observed gasping for air and snoring loudly while asleep. Expresses concern for underlying sleep apnea stop/ban. Patient requesting referral to sleep medicine, referral provided. Of note: This is a patient that presents with a myriad of complaints at each visit - most significantly her chronic pain. She follows with numerous specialists including but not limited to orthopedics, neurology, GI, psychiatry, rheumatology, thoracic surgery, etc. She has had extensive testing including XRs, CT scans, and MRIs. Furthermore, she has had comprehensive laboratory evaluation. Unfortunately, with the diagnostics we have, there is no current evidence of any disease state/anatomic abnormality that can be pinpointed to be the direct cause of the pain she is experiencing. Discussed at length and provided reassurance that each member of her care team works to treat disease states that can be identified with goal of improving her quality of life. All questions answered to the patient's satisfaction. Patient demonstrates understanding of diagnosis and treatments discussed. Follow-up at next scheduled appointment, sooner should any questions/concerns arise. Case discussed with collaborating physician Velia Morrison who has reviewed the assessment/plan. Chart, medications, labs, and vital signs reviewed. Dictation completed with the use of [email or web address] voice recognition software, prone to medical misidentifications and grammatical errors. All errors are unintentional. Although the practitioner does try to identify and correct errors, some may be present. Please do not hesitate to contact the practitioner for clarification. Total time was 60 minutes spent with >50% on coordination of care and patient education. 04/23/2025 Heavy alcohol use (ICD-10 - F10.90) María is a 59-year-old female with a PMH of RA, slipped rib syndrome, chronic pain that presents today for ER follow-up hospital follow-up. María presented to [facility] ED 04/19/2025 with chief complaint of suicidal ideation due to her chronic pain. At that time she endorsed poor quality of sleep, increased tobacco use, and increased alcohol use all secondary to her pain. ED workup significant for intoxicated ANIYAH of 132, otherwise WNL. Patient was admitted for voluntary psychiatric hold at that time. #Depression/Anxiety: Continues to endorse exacerbation of chronic depression due to unresolved chronic pain in the area of the right ribs. Denies having plan or intent to harm herself or others at this time. She has since established with therapist Shlomo Christian which she feels will be helpful, due to be seen 04/29/25. She additionally follows with psychiatric provider Clarice Lara regularly. Taking Zoloft 25mg daily and lorazepam 0.5mg up to TID. She understands the importance of taking her medications with compliance and as prescribed. ED protocol reviewed. #Alcohol use: At time of admission patient endorsed increased alcohol use with goal of controlling her pain. ANIYAH 132. Since time of discharge she denies any alcohol use. Denies seizure activity, involuntary movements, or AVH. #Chronic pain: Patient continues to struggle with ongoing right sided flank pain for over 3 years. 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 While inpatient patient received Tylenol, Dilaudid, and ketorolac for pain management. Not currently taking any pain medication. Previously followed with painter [employer] Dr. Trivedi who provided steroid injections. Historically the patient has tried numerous nonopioid pain management medications including but not limited to ibuprofen, meloxicam, mirtazapine, baclofen, tizanidine, cyclobenzaprine, Tylenol, gabapentin, topical lidocaine patches, and Journavx - all of which are reported to be not helpful. Regularly requests opioid pain management. Given use of benzodiazepines and unclear alcohol use discussed risks with added opioid use. WIll refer to painter ordn[employer] with goal of establishing safe pain management regimen. #RA: Follows with Joshua Castellanos MD out of [place]. Discussed possibility of chronic pain being related to untreated rheumatoid arthritis. She is strongly encouraged to follow-up with rheumatology as scheduled at the end of April and to also start her Orencia injection per their recommendations. #Lung Nodules: PMH of latent TB s/p treatment completion. Most recent chest CT 12/05/2024 reveals bilateral pulmonary nodules with recommended follow-up CT in [address] of the chest without contrast today. #Snoring: Patient reports that while inpatient she was observed gasping for air and snoring loudly while asleep. Expresses concern for underlying sleep apnea stop/ban. Patient requesting referral to sleep medicine, referral provided. Of note: This is a patient that presents with a myriad of complaints at each visit - most significantly her chronic pain. She follows with numerous specialists including but not limited to orthopedics, neurology, GI, psychiatry, rheumatology, thoracic surgery, etc. She has had extensive testing including XRs, CT scans, and MRIs. Furthermore, she has had comprehensive laboratory evaluation. Unfortunately, with the diagnostics we have, there is no current evidence of any disease state/anatomic abnormality that can be pinpointed to be the direct cause of the pain she is experiencing. Discussed at length and provided reassurance that each member of her care team works to treat disease states that can be identified with goal of improving her quality of life. All questions answered to the patient's satisfaction. Patient demonstrates understanding of diagnosis and treatments discussed. Follow-up at next scheduled appointment, sooner should any questions/concerns arise. Case discussed with collaborating physician Velia Morrison who has reviewed the assessment/plan. Chart, medications, labs, and vital signs reviewed. Dictation completed with the use of [email or web address] voice recognition software, prone to medical misidentifications and grammatical errors. All errors are unintentional. Although the practitioner does try to identify and correct errors, some may be present. Please do not hesitate to contact the practitioner for clarification. Total time was 60 minutes spent with >50% on coordination of care and patient education. 05/05/2025 Spontaneous ecchymoses (ICD-10 - R23.3) María is a 59-year-old female with a PMH of RA, slipped rib syndrome, chronic pain that presents today for evaluation of rash involving both forearms. #Skin tear: Patient presents today with concern for petechial rash on bilateral forearms. She feels this may be due to initiation of treatment with RA injection (Orencia) or recent inpatient DVT prophylaxis. On exam there is an oval hematoma with minimal surrounding petechiae and a centrally located skin tear. No visible bleeding or discharge on exam. No surrounding erythema, edema, or palpable warmth. There is also a small, dime-sized, round hematoma on the distal right forearm. All remaining skin is warm, dry, and intact. Patient provided with antibacterial ointment and gauze in office - she understands the importance of keeping the area clean/dry. Increased bruising likely due to recent DVT prophylaxis. She is encouraged to contact rheum (Dr. Joshua Castellanos) to discuss involvement of RA medication. On review of most recent CBC, RBC mildly low and MCV high. Will order CBC, CMP, B12, and folate for continued evaluation. Patient requesting dermatology referral, referral provided. #Irregular bowel movements: Patient requesting urgent colonoscopy per recommendation of [facility] surgeon Jewel Dubon. On review of Dr. Dubon's most recent note, it appears patient reports ongoing symptoms of RUQ pain and constipation for which he recommended MiraLAX and colonoscopy. Patient takes MiraLAX once daily with resultant diarrhea. Denies the presence of blood in the stool. No personal/family history of IBD/colon cancer. Patient established with Rajan Sanders with GI, she is encouraged to follow-up with their office to discuss possibility of updating colonoscopy (most recent colonoscopy 2021). #Depression/Anxiety: Continues to endorse exacerbation of chronic depression due to unresolved chronic pain in the area of the right ribs. Denies SI/HI. Follows with therapist Shlomo Fernandez once weekly and psychiatric provider Clarice Lara regularly. Discontinued Zoloft due to development of rash. Continues to take lorazepam 0.5mg up to TID. She understands the importance of taking her medications with compliance and as prescribed. ED protocol reviewed. #Chronic pain: Patient continues to struggle with ongoing right sided flank pain for over 3 years. 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 Currently taking gabapentin TID without symptom improvement. Follows with painter [employer] Dr. Trivedi. Historically the patient has tried numerous nonopioid pain management medications including but not limited to ibuprofen, meloxicam, mirtazapine, baclofen, tizanidine, cyclobenzaprine, Tylenol, topical lidocaine patches, and Journavx - all of which are reported to be not helpful. Of note: This is a patient that presents with a myriad of complaints at each visit - most significantly her chronic pain. She follows with numerous specialists including but not limited to orthopedics, neurology, GI, psychiatry, rheumatology, thoracic surgery, etc. She has had extensive testing including XRs, CT scans, and MRIs. Furthermore, she has had comprehensive laboratory evaluation. Unfortunately, with the diagnostics we have, there is no current evidence of any disease state/anatomic abnormality that can be pinpointed to be the direct cause of the pain she is experiencing. Discussed at length and provided reassurance that each member of her care team works to treat disease states that can be identified with goal of improving her quality of life. All questions answered to the patient's satisfaction. Patient demonstrates understanding of diagnosis and treatments discussed. Follow-up at next scheduled appointment, sooner should any questions/concerns arise. Case discussed with collaborating physician Velia Morrison who has reviewed the assessment/plan. Chart, medications, labs, and vital signs reviewed. Dictation completed with the use of Dragon voice recognition software, prone to medical misidentifications and grammatical errors. All errors are unintentional. Although the practitioner does try to identify and correct errors, some may be present. Please do not hesitate to contact the practitioner for clarification. Total time was 60 minutes spent with >50% on coordination of care and patient education. 05/05/2025 Skin tear of left upper extremity (ICD-10 - S41.112A) María is a 59-year-old female with a PMH of RA, slipped rib syndrome, chronic pain that presents today for evaluation of rash involving both forearms. #Skin tear: Patient presents today with concern for petechial rash on bilateral forearms. She feels this may be due to initiation of treatment with RA injection (Orencia) or recent inpatient DVT prophylaxis. On exam there is an oval hematoma with minimal surrounding petechiae and a centrally located skin tear. No visible bleeding or discharge on exam. No surrounding erythema, edema, or palpable warmth. There is also a small, dime-sized, round hematoma on the distal right forearm. All remaining skin is warm, dry, and intact. Patient provided with antibacterial ointment and gauze in office - she understands the importance of keeping the area clean/dry. Increased bruising likely due to recent DVT prophylaxis. She is encouraged to contact rheum (Dr. Joshua Castellanos) to discuss involvement of RA medication. On review of most recent CBC, RBC mildly low and MCV high. Will order CBC, CMP, B12, and folate for continued evaluation. Patient requesting dermatology referral, referral provided. #Irregular bowel movements: Patient requesting urgent colonoscopy per recommendation of [facility] surgeon Jewel Dubon. On review of Dr. Dubon's most recent note, it appears patient reports ongoing symptoms of RUQ pain and constipation for which he recommended MiraLAX and colonoscopy. Patient takes MiraLAX once daily with resultant diarrhea. Denies the presence of blood in the stool. No personal/family history of IBD/colon cancer. Patient established with Rajan Sanders with GI, she is encouraged to follow-up with their office to discuss possibility of updating colonoscopy (most recent colonoscopy 2021). #Depression/Anxiety: Continues to endorse exacerbation of chronic depression due to unresolved chronic pain in the area of the right ribs. Denies SI/HI. Follows with therapist Shlomo Fernandez once weekly and psychiatric provider Clarice Lara regularly. Discontinued Zoloft due to development of rash. Continues to take lorazepam 0.5mg up to TID. She understands the importance of taking her medications with compliance and as prescribed. ED protocol reviewed. #Chronic pain: Patient continues to struggle with ongoing right sided flank pain for over 3 years. 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 Currently taking gabapentin TID without symptom improvement. Follows with [employer] Dr. Trivedi. Historically the patient has tried numerous nonopioid pain management medications including but not limited to ibuprofen, meloxicam, mirtazapine, baclofen, tizanidine, cyclobenzaprine, Tylenol, topical lidocaine patches, and Journavx - all of which are reported to be not helpful. Of note: This is a patient that presents with a myriad of complaints at each visit - most significantly her chronic pain. She follows with numerous specialists including but not limited to orthopedics, neurology, GI, psychiatry, rheumatology, thoracic surgery, etc. She has had extensive testing including XRs, CT scans, and MRIs. Furthermore, she has had comprehensive laboratory evaluation. Unfortunately, with the diagnostics we have, there is no current evidence of any disease state/anatomic abnormality that can be pinpointed to be the direct cause of the pain she is experiencing. Discussed at length and provided reassurance that each member of her care team works to treat disease states that can be identified with goal of improving her quality of life. All questions answered to the patient's satisfaction. Patient demonstrates understanding of diagnosis and treatments discussed. Follow-up at next scheduled appointment, sooner should any questions/concerns arise. Case discussed with collaborating physician Velia Morrison who has reviewed the assessment/plan. Chart, medications, labs, and vital signs reviewed. Dictation completed with the use of [email or web address] voice recognition software, prone to medical misidentifications and grammatical errors. All errors are unintentional. Although the practitioner does try to identify and correct errors, some may be present. Please do not hesitate to contact the practitioner for clarification. Total time was 60 minutes spent with >50% on coordination of care and patient education. 03/05/2025 Elevated lipids (ICD-10 - E78.5) 05/05/2025 Irregular bowel habits (ICD-10 - R19.8) María is a 59-year-old female with a PMH of RA, slipped rib syndrome, chronic pain that presents today for evaluation of rash involving both forearms. #Skin tear: Patient presents today with concern for petechial rash on bilateral forearms. She feels this may be due to initiation of treatment with RA injection (Orencia) or recent inpatient DVT prophylaxis. On exam there is an oval hematoma with minimal surrounding petechiae and a centrally located skin tear. No visible bleeding or discharge on exam. No surrounding erythema, edema, or palpable warmth. There is also a small, dime-sized, round hematoma on the distal right forearm. All remaining skin is warm, dry, and intact. Patient provided with antibacterial ointment and gauze in office - she understands the importance of keeping the area clean/dry. Increased bruising likely due to recent DVT prophylaxis. She is encouraged to contact rheum (Dr. Joshua Castellanos) to discuss involvement of RA medication. On review of most recent CBC, RBC mildly low and MCV high. Will order CBC, CMP, B12, and folate for continued evaluation. Patient requesting dermatology referral, referral provided. #Irregular bowel movements: Patient requesting urgent colonoscopy per recommendation of [facility] surgeon Jewel Dubon. On review of Dr. Dubon's most recent note, it appears patient reports ongoing symptoms of RUQ pain and constipation for which he recommended MiraLAX and colonoscopy. Patient takes MiraLAX once daily with resultant diarrhea. Denies the presence of blood in the stool. No personal/family history of IBD/colon cancer. Patient established with Rajan Sanders with GI, she is encouraged to follow-up with their office to discuss possibility of updating colonoscopy (most recent colonoscopy 2021). #Depression/Anxiety: Continues to endorse exacerbation of chronic depression due to unresolved chronic pain in the area of the right ribs. Denies SI/HI. Follows with therapist Shlomo Fernandez once weekly and psychiatric provider Clarice Lara regularly. Discontinued Zoloft due to development of rash. Continues to take lorazepam 0.5mg up to TID. She understands the importance of taking her medications with compliance and as prescribed. ED protocol reviewed. #Chronic pain: Patient continues to struggle with ongoing right sided flank pain for over 3 years. 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 Currently taking gabapentin TID without symptom improvement. Follows with [employer] Dr. Trivedi. Historically the patient has tried numerous nonopioid pain management medications including but not limited to ibuprofen, meloxicam, mirtazapine, baclofen, tizanidine, cyclobenzaprine, Tylenol, topical lidocaine patches, and Journavx - all of which are reported to be not helpful. Of note: This is a patient that presents with a myriad of complaints at each visit - most significantly her chronic pain. She follows with numerous specialists including but not limited to orthopedics, neurology, GI, psychiatry, rheumatology, thoracic surgery, etc. She has had extensive testing including XRs, CT scans, and MRIs. Furthermore, she has had comprehensive laboratory evaluation. Unfortunately, with the diagnostics we have, there is no current evidence of any disease state/anatomic abnormality that can be pinpointed to be the direct cause of the pain she is experiencing. Discussed at length and provided reassurance that each member of her care team works to treat disease states that can be identified with goal of improving her quality of life. All questions answered to the patient's satisfaction. Patient demonstrates understanding of diagnosis and treatments discussed. Follow-up at next scheduled appointment, sooner should any questions/concerns arise. Case discussed with collaborating physician Velia Morrison who has reviewed the assessment/plan. Chart, medications, labs, and vital signs reviewed. Dictation completed with the use of [email or web address] voice recognition software, prone to medical misidentifications and grammatical errors. All errors are unintentional. Although the practitioner does try to identify and correct errors, some may be present. Please do not hesitate to contact the practitioner for clarification. Total time was 60 minutes spent with >50% on coordination of care and patient education. 03/21/2025 Dyspnea on exertion (ICD-10 - R06.09) María is a 59-year-old female with a PMH of RA, slipped from syndrome, chronic pain, amongst other diagnoses that presents today for evaluation of heart palpitations and weakness. Patient has presented with these complaints in the past. States they have become more frequent/noticeable in the last week. Experiencing sensation of jumping and her chest and shortness of breath worse with exertion. Denies additional cardiac or pulmonary symptoms. On presentation the patient is vitally stable. Cardiac auscultation reveals RRR, no murmurs, rubs, or gallops. Lungs CTA. No focal neurologic deficit. Most recent ECG performed 11/18/2024 was NSR with low voltage QTc consistent with prior studies. No acute ischemic changes. Plan to repeat ECG today to assess for any changes. Will also order ECHO and labs including CBC, CMP, magnesium, TSH, and UA to assess for any potential infectious etiology, electrolyte abnormality, or thyroid dysfunction. Will also order CK as patient recently started Journavx which can elevate CK. Patient requesting tramadol, she has requested this in the past. She is encouraged to follow-up with her pain management provider to discuss options for pain regimen. Recommending alternating OTC Tylenol and ibuprofen, use of ice/heat, OTC lidocaine patches, and/or OTC Voltaren gel. ED protocol reviewed. She understands to dial 911/seek immediate medical attention should she develop symptoms including but not limited to persistent chest pain, sensation of irregular heartbeat, diaphoresis, confusion, persistent nausea/vomiting, etc. All questions answered to the patient's satisfaction. Patient demonstrates understanding of diagnosis and treatments discussed. Follow-up at next scheduled appointment, sooner should any questions/concerns arise. Case discussed with collaborating physician Velia Morrison who has reviewed the assessment/plan. Chart, medications, labs, and vital signs reviewed. Dictation completed with the use of [email or web address] voice recognition software, prone to medical misidentifications and grammatical errors. All errors are unintentional. Although the practitioner does try to identify and correct errors, some may be present. Please do not hesitate to contact the practitioner for clarification. 04/23/2025 Chronic pain syndrome (ICD-10 - G89.4) María is a 59-year-old female with a PMH of RA, slipped rib syndrome, chronic pain that presents today for ER follow-up hospital follow-up. María presented to [facility] ED 04/19/2025 with chief complaint of suicidal ideation due to her chronic pain. At that time she endorsed poor quality of sleep, increased tobacco use, and increased alcohol use all secondary to her pain. ED workup significant for intoxicated ANIYAH of 132, otherwise WNL. Patient was admitted for voluntary psychiatric hold at that time. #Depression/Anxiety: Continues to endorse exacerbation of chronic depression due to unresolved chronic pain in the area of the right ribs. Denies having plan or intent to harm herself or others at this time. She has since established with therapist Shlomo Christian which she feels will be helpful, due to be seen 04/29/25. She additionally follows with psychiatric provider Clarice Lara regularly. Taking Zoloft 25mg daily and lorazepam 0.5mg up to TID. She understands the importance of taking her medications with compliance and as prescribed. ED protocol reviewed. #Alcohol use: At time of admission patient endorsed increased alcohol use with goal of controlling her pain. ANIYAH 132. Since time of discharge she denies any alcohol use. Denies seizure activity, involuntary movements, or AVH. #Chronic pain: Patient continues to struggle with ongoing right sided flank pain for over 3 years. 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 While inpatient patient received Tylenol, Dilaudid, and ketorolac for pain management. Not currently taking any pain medication. Previously followed with [employer] Dr. Trivedi who provided steroid injections. Historically the patient has tried numerous nonopioid pain management medications including but not limited to ibuprofen, meloxicam, mirtazapine, baclofen, tizanidine, cyclobenzaprine, Tylenol, gabapentin, topical lidocaine patches, and Journavx - all of which are reported to be not helpful. Regularly requests opioid pain management. Given use of benzodiazepines and unclear alcohol use discussed risks with added opioid use. WIll refer to [employer] with goal of establishing safe pain management regimen. #RA: Follows with Joshua Castellanos MD out of [place]. Discussed possibility of chronic pain being related to untreated rheumatoid arthritis. She is strongly encouraged to follow-up with rheumatology as scheduled at the end of April and to also start her Orencia injection per their recommendations. #Lung Nodules: PMH of latent TB s/p treatment completion. Most recent chest CT 12/05/2024 reveals bilateral pulmonary nodules with recommended follow-up CT in [address] of the chest without contrast today. #Snoring: Patient reports that while inpatient she was observed gasping for air and snoring loudly while asleep. Expresses concern for underlying sleep apnea stop/ban. Patient requesting referral to sleep medicine, referral provided. Of note: This is a patient that presents with a myriad of complaints at each visit - most significantly her chronic pain. She follows with numerous specialists including but not limited to orthopedics, neurology, GI, psychiatry, rheumatology, thoracic surgery, etc. She has had extensive testing including XRs, CT scans, and MRIs. Furthermore, she has had comprehensive laboratory evaluation. Unfortunately, with the diagnostics we have, there is no current evidence of any disease state/anatomic abnormality that can be pinpointed to be the direct cause of the pain she is experiencing. Discussed at length and provided reassurance that each member of her care team works to treat disease states that can be identified with goal of improving her quality of life. All questions answered to the patient's satisfaction. Patient demonstrates understanding of diagnosis and treatments discussed. Follow-up at next scheduled appointment, sooner should any questions/concerns arise. Case discussed with collaborating physician Velia Morrison who has reviewed the assessment/plan. Chart, medications, labs, and vital signs reviewed. Dictation completed with the use of [email or web address] voice recognition software, prone to medical misidentifications and grammatical errors. All errors are unintentional. Although the practitioner does try to identify and correct errors, some may be present. Please do not hesitate to contact the practitioner for clarification. Total time was 60 minutes spent with >50% on coordination of care and patient education. 03/05/2025 Chronic fatigue (ICD-10 - R53.82) María is a 59-year-old female with a PMH of rheumatoid arthritis, anxiety, slipped rib syndrome, chronic pain that presents for CPE. #Slipped rib syndrome: Follows with Dr. Dubon with [facility]. Underwent repair 12/17/2024. #Ventral hernia: Surgical history of ventral hernia repair (2018). Reports that following the procedure to correct slipped rib (12/2024) she has had a sensation of burning across the abdomen. Dr. Dubon has initiated a workup including imaging which revealed the presence of numerous surgical clips (not placed during revision of slipped rib). Per patient, it is Dr. Dubon's recommendation that a revision of her ventral hernia repair take place with goal of removing excess surgical clips and improving the patient's symptoms. Records requested for review. #Rheumatoid arthritis: + Rheumatoid factor (152). Follows with sign language translator Dr. Joshua Castellanos out of [place]. Follow-up labs including CAMILO, ESR/CRP, and comprehensive antibodies to assess for secondary underlying autoimmune disease WNL. Due to start Orencia injections -this is currently on hold due to pending ventral hernia repair revision as she cannot take a biologic leading up to surgery. Currently taking tramadol 50mg PRN for pain. #Anxiety: Patient continues to struggle with anxiety in the setting of her complex medical needs and uncertain diagnoses. Follows with psychiatric provider Clarice Lara with [facility]. Taking clonazepam 0.5 mg once daily with adequate control of symptoms. PHQ-9: 8. Denies significant symptoms of depression, AVH, SI/HI. #Generalized pains/fatigue: Patient continues to present with a myriad of musculoskeletal complaints. She follows with numerous specialists including orthopedics, neurosurgery, and pain management (amongst others). She has had comprehensive workups including labs and imaging. Saw pain management 02/04/2025 for low back pain at which time a steroid injection was administered at level of L5/S1. Also saw orthopedics 01/22/2025 and 02/06/2025 for knee pain and shoulder/neck pain respectively -it appears additional steroid and/or viscosupplementation injections were offered which the patient has declined at this time. Given the diffuse involvement and ongoing nature of the patient's pain discussed goals of care. She understands that long-term use of opioid analgesic is not recommended and plans to continue to follow with pain management. Discussed option of nonopioid pain medication Journavx, patient is agreeable to trying this. Reviewed proper use/dosing as well as side effects including but not limited to skin rash, and kidney dysfunction. #Hyperkalemia: Patient reports she was at [facility] ED recently at which time her potassium was elevated. Patient does experience fatigue and muscle weakness, no worse than normal. CMP, Mg, CBC, vitamin D, B12/folate ordered for continued evaluation. Patient seen and examined. Comprehensive discussion was done on the followin. Discussed the importance of a diet rich in fruit, vegetables, legumes and healthy fats. Patient advised to avoid processed food and carbohydrates, added sugars, and saturated/trans fats. When possible, prepare your own meals and avoid fast food. Read nutrition labels - avoid ingredients including high fructose corn syrup and preservatives. Be contentious of daily calorie intake and weight. 2. Discussed the importance of regular physical activity. Recommended a goal 6-10k steps or 30 minutes of walking per day. Discussed the benefit of weight-bearing exercise and strength training with proper body mechanics/safety precautions. Other activities including cycling, hiking, etc. are recommended and encouraged. Patient advised to seek medical attention for any SOB, chest pain, muscle or joint pain associated with exercise. 3. Discussed risks and benefits of age-appropriate screening guidelines including but not limited to colonoscopy (UTD 08/28/23), mammogram (UTD 11/2024), breast examinations, and PAP smears (Due 03/2025). 4. Discussed safe driving, utilization of seat belts, and the importance of refraining from smartphone while driving. 5. Age-appropriate immunizations were discussed including but not limited to Shingles vaccine (recommended), pneumonia vaccine (UTD ), influenza vaccine (UTD ), Tdap (UTD 01/09/19), etc. All questions answered to the patients satisfaction. Patient demonstrates understanding of diagnosis and treatments discussed. Follow-up in 1 month, sooner should any questions/concerns arise. Case discussed with collaborating physician Velia Morrison who has reviewed the assessment/plan. Chart, medications, labs, and vital signs reviewed. Dictation completed with the use of [email or web address] voice recognition software, prone to medical misidentifications and grammatical errors. All errors are unintentional. Although the practitioner does try to identify and correct errors, some may be present. Please do not hesitate to contact the practitioner for clarification. Total time was 60 minutes spent with >50% on coordination of care and patient education. 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 Dubon out of [place], [place]. Taking methocarbamol 750 mg 3 times [...] Dictation was accomplished with the use of [email or web address] voice recognition software, which is prone to [...] was diagnosed by Dr. Dubon out of [place], [place]. Taking methocarbamol 750 mg 3 times [...] Dictation was accomplished with the use of [email or web address] voice recognition software, which is prone to medical misidentifications and grammatical errors. This are unintentional and the practitioner does try to identify and correct these, but some could still be present. Please do not hesitate to contact practitioner for clarification. 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 Mild TTP of cervical spine - flexion/extension/rota tion of the neck appears unaffected. Given recent [...] for 11/20/2024. #Recent fall: Patient seen at [facility] ED 11/02/2024 s/p fall at work. [...] diffuse joint pain and fatigue. Follows with sign language translator Dr. Clark out of [place], records requested and not yet available for my review. 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 States this was diagnosed by Dr. Dubon out of [place], [place]. Taking methocarbamol 750 mg 3 times daily and gabapentin 100 mg twice daily with moderate relief of discomfort. Patient awaiting surgical scheduling for correction. #Anxiety/depression: Patient reports she has had a challenging year as her slipped rib syndrome quite a long overlooked/undiagnosed . States she has felt many health care [...] reviewed. Dictation completed with the use of [email or web address] voice recognition software, prone to medical misidentifications [...] Patient reports history of RA. Follows with sign language translator Dr. Clark out of [place]. Has been treated previously with Humira, Enbrel, [...] to the cartilage which creates discomfort with inhalation/exhalation. States this was diagnosed by Dr. Dubon out of [place], [place]. Taking methocarbamol 750 mg 3 times daily and gabapentin 100 mg 3 times daily with moderate relief of discomfort. Patient awaiting surgical scheduling for correction. #Anxiety/depression: Patient reports she has had a challenging year as her slipped rib syndrome quite a long overlooked/undiagnosed . States she has felt many health care [...] reviewed. Dictation completed with the use of [email or web address] voice recognition software, prone to medical misidentifications [...] intact. Mild TTP of cervical spine - flexion/extension/rota tion of the neck appears unaffected. Given recent [...] for 11/20/2024. #Recent fall: Patient seen at [facility] ED 11/02/2024 s/p fall at work. [...] diffuse joint pain and fatigue. Follows with sign language translator Dr. Clark out of [place], records requested and not yet available for my review. 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 States this was diagnosed by Dr. Dubon out of [place], [place]. Taking methocarbamol 750 mg 3 times daily and gabapentin 100 mg twice daily with moderate relief of discomfort. Patient awaiting surgical scheduling for correction. #Anxiety/depression: Patient reports she has had a challenging year as her slipped rib syndrome quite a long overlooked/undiagnosed . States she has felt many health care [...] reviewed. Dictation completed with the use of [email or web address] voice recognition software, prone to medical misidentifications [...] Patient reports history of RA. Follows with sign language translator Dr. Clark out of [place]. Has been treated previously with Humira, Enbrel, [...] to the cartilage which creates discomfort with inhalation/exhalation. States this was diagnosed by Dr. Dubon out of [place], [place]. Taking methocarbamol 750 mg 3 times daily and gabapentin 100 mg 3 times daily with moderate relief of discomfort. Patient awaiting surgical scheduling for correction. #Anxiety/depression: Patient reports she has had a challenging year as her slipped rib syndrome quite a long overlooked/undiagnosed . States she has felt many health care [...] reviewed. Dictation completed with the use of [email or web address] voice recognition software, prone to medical misidentifications [...] was diagnosed by Dr. Dubon out of [place], [place]. Taking methocarbamol 750 mg 3 times [...] Dictation was accomplished with the use of [email or web address] voice recognition software, which is prone to [...] was diagnosed by Dr. Dubon out of [place], [place]. Taking methocarbamol 750 mg 3 times [...] Dictation was accomplished with the use of [email or web address] voice recognition software, which is prone to medical misidentifications and grammatical errors. This are unintentional and the practitioner does try to identify and correct these, but some could still be present. Please do not hesitate to contact practitioner for clarification. 03/05/2025 Hyperkalemia (ICD-10 - E87.5) María is a 59-year-old female with a PMH of rheumatoid arthritis, anxiety, slipped rib syndrome, chronic pain that presents for CPE. #Slipped rib syndrome: Follows with Dr. Dubon with [facility]. Underwent repair 12/17/2024. #Ventral hernia: Surgical history of ventral hernia repair (2018). Reports that following the procedure to correct slipped rib (12/2024) she has had a sensation of burning across the abdomen. Dr. Dubon has initiated a workup including imaging which revealed the presence of numerous surgical clips (not placed during revision of slipped rib). Per patient, it is Dr. Dubon's recommendation that a revision of her ventral hernia repair take place with goal of removing excess surgical clips and improving the patient's symptoms. Records requested for review. #Rheumatoid arthritis: + Rheumatoid factor (152). Follows with sign language translator Dr. Joshua Castellanos out of [place]. Follow-up labs including CAMILO, ESR/CRP, and comprehensive antibodies to assess for secondary underlying autoimmune disease WNL. Due to start Orencia injections -this is currently on hold due to pending ventral hernia repair revision as she cannot take a biologic leading up to surgery. Currently taking tramadol 50mg PRN for pain. #Anxiety: Patient continues to struggle with anxiety in the setting of her complex medical needs and uncertain diagnoses. Follows with psychiatric provider Clarice Lara with [facility]. Taking clonazepam 0.5 mg once daily with adequate control of symptoms. PHQ-9: 8. Denies significant symptoms of depression, AVH, SI/HI. #Generalized pains/fatigue: Patient continues to present with a myriad of musculoskeletal complaints. She follows with numerous specialists including orthopedics, neurosurgery, and pain management (amongst others). She has had comprehensive workups including labs and imaging. Saw pain management 02/04/2025 for low back pain at which time a steroid injection was administered at level of L5/S1. Also saw orthopedics 01/22/2025 and 02/06/2025 for knee pain and shoulder/neck pain respectively -it appears additional steroid and/or viscosupplementation injections were offered which the patient has declined at this time. Given the diffuse involvement and ongoing nature of the patient's pain discussed goals of care. She understands that long-term use of opioid analgesic is not recommended and plans to continue to follow with pain management. Discussed option of nonopioid pain medication Journavx, patient is agreeable to trying this. Reviewed proper use/dosing as well as side effects including but not limited to skin rash, and kidney dysfunction. #Hyperkalemia: Patient reports she was at [facility] ED recently at which time her potassium was elevated. Patient does experience fatigue and muscle weakness, no worse than normal. CMP, Mg, CBC, vitamin D, B12/folate ordered for continued evaluation. Patient seen and examined. Comprehensive discussion was done on the followin. Discussed the importance of a diet rich in fruit, vegetables, legumes and healthy fats. Patient advised to avoid processed food and carbohydrates, added sugars, and saturated/trans fats. When possible, prepare your own meals and avoid fast food. Read nutrition labels - avoid ingredients including high fructose corn syrup and preservatives. Be contentious of daily calorie intake and weight. 2. Discussed the importance of regular physical activity. Recommended a goal 6-10k steps or 30 minutes of walking per day. Discussed the benefit of weight-bearing exercise and strength training with proper body mechanics/safety precautions. Other activities including cycling, hiking, etc. are recommended and encouraged. Patient advised to seek medical attention for any SOB, chest pain, muscle or joint pain associated with exercise. 3. Discussed risks and benefits of age-appropriate screening guidelines including but not limited to colonoscopy (UTD 08/28/23), mammogram (UTD 11/2024), breast examinations, and PAP smears (Due 03/2025). 4. Discussed safe driving, utilization of seat belts, and the importance of refraining from smartphone while driving. 5. Age-appropriate immunizations were discussed including but not limited to Shingles vaccine (recommended), pneumonia vaccine (UTD ), influenza vaccine (UTD ), Tdap (UTD 01/09/19), etc. All questions answered to the patients satisfaction. Patient demonstrates understanding of diagnosis and treatments discussed. Follow-up in 1 month, sooner should any questions/concerns arise. Case discussed with collaborating physician Velia Morrison who has reviewed the assessment/plan. Chart, medications, labs, and vital signs reviewed. Dictation completed with the use of [email or web address] voice recognition software, prone to medical misidentifications and grammatical errors. All errors are unintentional. Although the practitioner does try to identify and correct errors, some may be present. Please do not hesitate to contact the practitioner for clarification. Total time was 60 minutes spent with >50% on coordination of care and patient education. 03/05/2025 Anemia due to vitamin B12 deficiency, unspecified B12 deficiency type (ICD-10 - D51.9) 05/05/2025 Depression with anxiety (ICD-10 - F41.8) María is a 59-year-old female with a PMH of RA, slipped rib syndrome, chronic pain that presents today for evaluation of rash involving both forearms. #Skin tear: Patient presents today with concern for petechial rash on bilateral forearms. She feels this may be due to initiation of treatment with RA injection (Orencia) or recent inpatient DVT prophylaxis. On exam there is an oval hematoma with minimal surrounding petechiae and a centrally located skin tear. No visible bleeding or discharge on exam. No surrounding erythema, edema, or palpable warmth. There is also a small, dime-sized, round hematoma on the distal right forearm. All remaining skin is warm, dry, and intact. Patient provided with antibacterial ointment and gauze in office - she understands the importance of keeping the area clean/dry. Increased bruising likely due to recent DVT prophylaxis. She is encouraged to contact rheum (Dr. Joshua Castellanos) to discuss involvement of RA medication. On review of most recent CBC, RBC mildly low and MCV high. Will order CBC, CMP, B12, and folate for continued evaluation. Patient requesting dermatology referral, referral provided. #Irregular bowel movements: Patient requesting urgent colonoscopy per recommendation of [facility] surgeon Jewel Dubon. On review of Dr. Dubon's most recent note, it appears patient reports ongoing symptoms of RUQ pain and constipation for which he recommended MiraLAX and colonoscopy. Patient takes MiraLAX once daily with resultant diarrhea. Denies the presence of blood in the stool. No personal/family history of IBD/colon cancer. Patient established with Rajan Sanders with GI, she is encouraged to follow-up with their office to discuss possibility of updating colonoscopy (most recent colonoscopy 2021). #Depression/Anxiety: Continues to endorse exacerbation of chronic depression due to unresolved chronic pain in the area of the right ribs. Denies SI/HI. Follows with therapist Shlomo Fernandez once weekly and psychiatric provider Clarice Lara regularly. Discontinued Zoloft due to development of rash. Continues to take lorazepam 0.5mg up to TID. She understands the importance of taking her medications with compliance and as prescribed. ED protocol reviewed. #Chronic pain: Patient continues to struggle with ongoing right sided flank pain for over 3 years. Initially thought to be due to slipped rib syndrome - has since undergone surgical correction with thoracic surgeon Jweel Dubon, DO without resolution of pain. Currently taking gabapentin TID without symptom improvement. Follows with [employer] Dr. Trivedi. Historically the patient has tried numerous nonopioid pain management medications including but not limited to ibuprofen, meloxicam, mirtazapine, baclofen, tizanidine, cyclobenzaprine, Tylenol, topical lidocaine patches, and Journavx - all of which are reported to be not helpful. Of note: This is a patient that presents with a myriad of complaints at each visit - most significantly her chronic pain. She follows with numerous specialists including but not limited to orthopedics, neurology, GI, psychiatry, rheumatology, thoracic surgery, etc. She has had extensive testing including XRs, CT scans, and MRIs. Furthermore, she has had comprehensive laboratory evaluation. Unfortunately, with the diagnostics we have, there is no current evidence of any disease state/anatomic abnormality that can be pinpointed to be the direct cause of the pain she is experiencing. Discussed at length and provided reassurance that each member of her care team works to treat disease states that can be identified with goal of improving her quality of life. All questions answered to the patient's satisfaction. Patient demonstrates understanding of diagnosis and treatments discussed. Follow-up at next scheduled appointment, sooner should any questions/concerns arise. Case discussed with collaborating physician Velia Morrison who has reviewed the assessment/plan. Chart, medications, labs, and vital signs reviewed. Dictation completed with the use of [email or web address] voice recognition software, prone to medical misidentifications and grammatical errors. All errors are unintentional. Although the practitioner does try to identify and correct errors, some may be present. Please do not hesitate to contact the practitioner for clarification. Total time was 60 minutes spent with >50% on coordination of care and patient education. 04/23/2025 Slipped rib syndrome (ICD-10 - M94.0) María is a 59-year-old female with a PMH of RA, slipped rib syndrome, chronic pain that presents today for ER follow-up hospital follow-up. María presented to [facility] ED 04/19/2025 with chief complaint of suicidal ideation due to her chronic pain. At that time she endorsed poor quality of sleep, increased tobacco use, and increased alcohol use all secondary to her pain. ED workup significant for intoxicated ANIYAH of 132, otherwise WNL. Patient was admitted for voluntary psychiatric hold at that time. #Depression/Anxiety: Continues to endorse exacerbation of chronic depression due to unresolved chronic pain in the area of the right ribs. Denies having plan or intent to harm herself or others at this time. She has since established with therapist Shlomo Christian which she feels will be helpful, due to be seen 04/29/25. She additionally follows with psychiatric provider Clarice Lara regularly. Taking Zoloft 25mg daily and lorazepam 0.5mg up to TID. She understands the importance of taking her medications with compliance and as prescribed. ED protocol reviewed. #Alcohol use: At time of admission patient endorsed increased alcohol use with goal of controlling her pain. ANIYAH 132. Since time of discharge she denies any alcohol use. Denies seizure activity, involuntary movements, or AVH. #Chronic pain: Patient continues to struggle with ongoing right sided flank pain for over 3 years. 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 While inpatient patient received Tylenol, Dilaudid, and ketorolac for pain management. Not currently taking any pain medication. Previously followed with [employer] Dr. Trivedi who provided steroid injections. Historically the patient has tried numerous nonopioid pain management medications including but not limited to ibuprofen, meloxicam, mirtazapine, baclofen, tizanidine, cyclobenzaprine, Tylenol, gabapentin, topical lidocaine patches, and Journavx - all of which are reported to be not helpful. Regularly requests opioid pain management. Given use of benzodiazepines and unclear alcohol use discussed risks with added opioid use. WIll refer to [employer] with goal of establishing safe pain management regimen. #RA: Follows with Joshua Castellanos MD out of [place]. Discussed possibility of chronic pain being related to untreated rheumatoid arthritis. She is strongly encouraged to follow-up with rheumatology as scheduled at the end of April and to also start her Orencia injection per their recommendations. #Lung Nodules: PMH of latent TB s/p treatment completion. Most recent chest CT 12/05/2024 reveals bilateral pulmonary nodules with recommended follow-up CT in [address] of the chest without contrast today. #Snoring: Patient reports that while inpatient she was observed gasping for air and snoring loudly while asleep. Expresses concern for underlying sleep apnea stop/ban. Patient requesting referral to sleep medicine, referral provided. Of note: This is a patient that presents with a myriad of complaints at each visit - most significantly her chronic pain. She follows with numerous specialists including but not limited to orthopedics, neurology, GI, psychiatry, rheumatology, thoracic surgery, etc. She has had extensive testing including XRs, CT scans, and MRIs. Furthermore, she has had comprehensive laboratory evaluation. Unfortunately, with the diagnostics we have, there is no current evidence of any disease state/anatomic abnormality that can be pinpointed to be the direct cause of the pain she is experiencing. Discussed at length and provided reassurance that each member of her care team works to treat disease states that can be identified with goal of improving her quality of life. All questions answered to the patient's satisfaction. Patient demonstrates understanding of diagnosis and treatments discussed. Follow-up at next scheduled appointment, sooner should any questions/concerns arise. Case discussed with collaborating physician Velia Morrison who has reviewed the assessment/plan. Chart, medications, labs, and vital signs reviewed. Dictation completed with the use of [email or web address] voice recognition software, prone to medical misidentifications and grammatical errors. All errors are unintentional. Although the practitioner does try to identify and correct errors, some may be present. Please do not hesitate to contact the practitioner for clarification. Total time was 60 minutes spent with >50% on coordination of care and patient education. 05/05/2025 Chronic pain syndrome (ICD-10 - G89.4) María is a 59-year-old female with a PMH of RA, slipped rib syndrome, chronic pain that presents today for evaluation of rash involving both forearms. #Skin tear: Patient presents today with concern for petechial rash on bilateral forearms. She feels this may be due to initiation of treatment with RA injection (Orencia) or recent inpatient DVT prophylaxis. On exam there is an oval hematoma with minimal surrounding petechiae and a centrally located skin tear. No visible bleeding or discharge on exam. No surrounding erythema, edema, or palpable warmth. There is also a small, dime-sized, round hematoma on the distal right forearm. All remaining skin is warm, dry, and intact. Patient provided with antibacterial ointment and gauze in office - she understands the importance of keeping the area clean/dry. Increased bruising likely due to recent DVT prophylaxis. She is encouraged to contact rheum (Dr. Joshua Castellanos) to discuss involvement of RA medication. On review of most recent CBC, RBC mildly low and MCV high. Will order CBC, CMP, B12, and folate for continued evaluation. Patient requesting dermatology referral, referral provided. #Irregular bowel movements: Patient requesting urgent colonoscopy per recommendation of [facility] surgeon Jewel Dubon. On review of Dr. Dubon's most recent note, it appears patient reports ongoing symptoms of RUQ pain and constipation for which he recommended MiraLAX and colonoscopy. Patient takes MiraLAX once daily with resultant diarrhea. Denies the presence of blood in the stool. No personal/family history of IBD/colon cancer. Patient established with Rajan Sanders with GI, she is encouraged to follow-up with their office to discuss possibility of updating colonoscopy (most recent colonoscopy 2021). #Depression/Anxiety: Continues to endorse exacerbation of chronic depression due to unresolved chronic pain in the area of the right ribs. Denies SI/HI. Follows with therapist Shlomo Fernandez once weekly and psychiatric provider Clarice Lara regularly. Discontinued Zoloft due to development of rash. Continues to take lorazepam 0.5mg up to TID. She understands the importance of taking her medications with compliance and as prescribed. ED protocol reviewed. #Chronic pain: Patient continues to struggle with ongoing right sided flank pain for over 3 years. Initially thought to be due to slipped rib syndrome - has since undergone surgical correction with thoracic surgeon Jewel Dubon, without resolution of pain. Currently taking gabapentin TID without symptom improvement. Follows with [employer] Dr. Trivedi. Historically the patient has tried numerous nonopioid pain management medications including but not limited to ibuprofen, meloxicam, mirtazapine, baclofen, tizanidine, cyclobenzaprine, Tylenol, topical lidocaine patches, and Journavx - all of which are reported to be not helpful. Of note: This is a patient that presents with a myriad of complaints at each visit - most significantly her chronic pain. She follows with numerous specialists including but not limited to orthopedics, neurology, GI, psychiatry, rheumatology, thoracic surgery, etc. She has had extensive testing including XRs, CT scans, and MRIs. Furthermore, she has had comprehensive laboratory evaluation. Unfortunately, with the diagnostics we have, there is no current evidence of any disease state/anatomic abnormality that can be pinpointed to be the direct cause of the pain she is experiencing. Discussed at length and provided reassurance that each member of her care team works to treat disease states that can be identified with goal of improving her quality of life. All questions answered to the patient's satisfaction. Patient demonstrates understanding of diagnosis and treatments discussed. Follow-up at next scheduled appointment, sooner should any questions/concerns arise. Case discussed with collaborating physician Velia Morrison who has reviewed the assessment/plan. Chart, medications, labs, and vital signs reviewed. Dictation completed with the use of [email or web address] voice recognition software, prone to medical misidentifications and grammatical errors. All errors are unintentional. Although the practitioner does try to identify and correct errors, some may be present. Please do not hesitate to contact the practitioner for clarification. Total time was 60 minutes spent with >50% on coordination of care and patient education. 04/23/2025 Rheumatoid arthritis involving multiple sites with positive rheumatoid factor (ICD-10 - M05.79) María is a 59-year-old female with a PMH of RA, slipped rib syndrome, chronic pain that presents today for ER follow-up hospital follow-up. María presented to [facility] ED 04/19/2025 with chief complaint of suicidal ideation due to her chronic pain. At that time she endorsed poor quality of sleep, increased tobacco use, and increased alcohol use all secondary to her pain. ED workup significant for intoxicated ANIYAH of 132, otherwise WNL. Patient was admitted for voluntary psychiatric hold at that time. #Depression/Anxiety: Continues to endorse exacerbation of chronic depression due to unresolved chronic pain in the area of the right ribs. Denies having plan or intent to harm herself or others at this time. She has since established with therapist Shlomo Christian which she feels will be helpful, due to be seen 04/29/25. She additionally follows with psychiatric provider Clarice Lara regularly. Taking Zoloft 25mg daily and lorazepam 0.5mg up to TID. She understands the importance of taking her medications with compliance and as prescribed. ED protocol reviewed. #Alcohol use: At time of admission patient endorsed increased alcohol use with goal of controlling her pain. ANIYAH 132. Since time of discharge she denies any alcohol use. Denies seizure activity, involuntary movements, or AVH. #Chronic pain: Patient continues to struggle with ongoing right sided flank pain for over 3 years. 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 While inpatient patient received Tylenol, Dilaudid, and ketorolac for pain management. Not currently taking any pain medication. Previously followed with painter ordn[employer] Dr. Trivedi who provided steroid injections. Historically the patient has tried numerous nonopioid pain management medications including but not limited to ibuprofen, meloxicam, mirtazapine, baclofen, tizanidine, cyclobenzaprine, Tylenol, gabapentin, topical lidocaine patches, and Journavx - all of which are reported to be not helpful. Regularly requests opioid pain management. Given use of benzodiazepines and unclear alcohol use discussed risks with added opioid use. WIll refer to painter [employer] with goal of establishing safe pain management regimen. #RA: Follows with Joshua Castellanos MD out of [place]. Discussed possibility of chronic pain being related to untreated rheumatoid arthritis. She is strongly encouraged to follow-up with rheumatology as scheduled at the end of April and to also start her Orencia injection per their recommendations. #Lung Nodules: PMH of latent TB s/p treatment completion. Most recent chest CT 12/05/2024 reveals bilateral pulmonary nodules with recommended follow-up CT in [address] of the chest without contrast today. #Snoring: Patient reports that while inpatient she was observed gasping for air and snoring loudly while asleep. Expresses concern for underlying sleep apnea stop/ban. Patient requesting referral to sleep medicine, referral provided. Of note: This is a patient that presents with a myriad of complaints at each visit - most significantly her chronic pain. She follows with numerous specialists including but not limited to orthopedics, neurology, GI, psychiatry, rheumatology, thoracic surgery, etc. She has had extensive testing including XRs, CT scans, and MRIs. Furthermore, she has had comprehensive laboratory evaluation. Unfortunately, with the diagnostics we have, there is no current evidence of any disease state/anatomic abnormality that can be pinpointed to be the direct cause of the pain she is experiencing. Discussed at length and provided reassurance that each member of her care team works to treat disease states that can be identified with goal of improving her quality of life. All questions answered to the patient's satisfaction. Patient demonstrates understanding of diagnosis and treatments discussed. Follow-up at next scheduled appointment, sooner should any questions/concerns arise. Case discussed with collaborating physician Velia Morrison who has reviewed the assessment/plan. Chart, medications, labs, and vital signs reviewed. Dictation completed with the use of [email or web address] voice recognition software, prone to medical misidentifications and grammatical errors. All errors are unintentional. Although the practitioner does try to identify and correct errors, some may be present. Please do not hesitate to contact the practitioner for clarification. Total time was 60 minutes spent with >50% on coordination of care and patient education. 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 #Slipped rib syndrome: Follows with Dr. Dubon with [facility]. Underwent repair 12/17/2024. #Ventral hernia: Surgical history of ventral hernia repair (2018). Reports that following the procedure to correct slipped rib (12/2024) she has had a sensation of burning across the abdomen. Dr. Dubon has initiated a workup including imaging which revealed the presence of numerous surgical clips (not placed during revision of slipped rib). Per patient, it is Dr. Dubon's recommendation that a revision of her ventral hernia repair take place with goal of removing excess surgical clips and improving the patient's symptoms. Records requested for review. #Rheumatoid arthritis: + Rheumatoid factor (152). Follows with sign language translator Dr. Joshua Castellanos out of [place]. Follow-up labs including CAMILO, ESR/CRP, and comprehensive antibodies to assess for secondary underlying autoimmune disease WNL. Due to start Orencia injections -this is currently on hold due to pending ventral hernia repair revision as she cannot take a biologic leading up to surgery. Currently taking tramadol 50mg PRN for pain. #Anxiety: Patient continues to struggle with anxiety in the setting of her complex medical needs and uncertain diagnoses. Follows with psychiatric provider Clarice Lara with [facility]. Taking clonazepam 0.5 mg once daily with adequate control of symptoms. PHQ-9: 8. Denies significant symptoms of depression, AVH, SI/HI. #Generalized pains/fatigue: Patient continues to present with a myriad of musculoskeletal complaints. She follows with numerous specialists including orthopedics, neurosurgery, and pain management (amongst others). She has had comprehensive workups including labs and imaging. Saw pain management 02/04/2025 for low back pain at which time a steroid injection was administered at level of L5/S1. Also saw orthopedics 01/22/2025 and 02/06/2025 for knee pain and shoulder/neck pain respectively -it appears additional steroid and/or viscosupplementation injections were offered which the patient has declined at this time. Given the diffuse involvement and ongoing nature of the patient's pain discussed goals of care. She understands that long-term use of opioid analgesic is not recommended and plans to continue to follow with pain management. Discussed option of nonopioid pain medication Journavx, patient is agreeable to trying this. Reviewed proper use/dosing as well as side effects including but not limited to skin rash, and kidney dysfunction. #Hyperkalemia: Patient reports she was at [facility] ED recently at which time her potassium was elevated. Patient does experience fatigue and muscle weakness, no worse than normal. CMP, Mg, CBC, vitamin D, B12/folate ordered for continued evaluation. Patient seen and examined. Comprehensive discussion was done on the followin. Discussed the importance of a diet rich in fruit, vegetables, legumes and healthy fats. Patient advised to avoid processed food and carbohydrates, added sugars, and saturated/trans fats. When possible, prepare your own meals and avoid fast food. Read nutrition labels - avoid ingredients including high fructose corn syrup and preservatives. Be contentious of daily calorie intake and weight. 2. Discussed the importance of regular physical activity. Recommended a goal 6-10k steps or 30 minutes of walking per day. Discussed the benefit of weight-bearing exercise and strength training with proper body mechanics/safety precautions. Other activities including cycling, hiking, etc. are recommended and encouraged. Patient advised to seek medical attention for any SOB, chest pain, muscle or joint pain associated with exercise. 3. Discussed risks and benefits of age-appropriate screening guidelines including but not limited to colonoscopy (UTD 08/28/23), mammogram (UTD 11/2024), breast examinations, and PAP smears (Due 03/2025). 4. Discussed safe driving, utilization of seat belts, and the importance of refraining from smartphone while driving. 5. Age-appropriate immunizations were discussed including but not limited to Shingles vaccine (recommended), pneumonia vaccine (UTD ), influenza vaccine (UTD ), Tdap (UTD 01/09/19), etc. All questions answered to the patients satisfaction. Patient demonstrates understanding of diagnosis and treatments discussed. Follow-up in 1 month, sooner should any questions/concerns arise. Case discussed with collaborating physician Velia Morrison who has reviewed the assessment/plan. Chart, medications, labs, and vital signs reviewed. Dictation completed with the use of [email or web address] voice recognition software, prone to medical misidentifications and grammatical errors. All errors are unintentional. Although the practitioner does try to identify and correct errors, some may be present. Please do not hesitate to contact the practitioner for clarification. Total time was 60 minutes spent with >50% on coordination of care and patient education. 03/05/2025 Vitamin D deficiency (ICD-10 - E55.9) 02/03/2025 Anxiety, generalized (ICD-10 - F41.1) María [...] was diagnosed by Dr. Dubon out of [place], [place]. Taking methocarbamol 750 mg 3 times [...] Dictation was accomplished with the use of [email or web address] voice recognition software, which is prone to [...] was diagnosed by Dr. Dubon out of [place], [place]. Taking methocarbamol 750 mg 3 times [...] Dictation was accomplished with the use of [email or web address] voice recognition software, which is prone to medical misidentifications and grammatical errors. This are unintentional and the practitioner does try to identify and correct these, but some could still be present. Please do not hesitate to contact practitioner for clarification. 11/18/2024 Pain in left arm (ICD-10 - [...] intact. Mild TTP of cervical spine - flexion/extension/rota tion of the neck appears unaffected. Given recent [...] for 11/20/2024. #Recent fall: Patient seen at [facility] ED 11/02/2024 s/p fall at work. [...] diffuse joint pain and fatigue. Follows with sign language translator Dr. Clark out of [place], records requested and not yet available for my review. 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 States this was diagnosed by Dr. Duobn out of [place], [place]. Taking methocarbamol 750 mg 3 times daily and gabapentin 100 mg twice daily with moderate relief of discomfort. Patient awaiting surgical scheduling for correction. #Anxiety/depression: Patient reports she has had a challenging year as her slipped rib syndrome quite a long overlooked/undiagnosed . States she has felt many health care [...] reviewed. Dictation completed with the use of [email or web address] voice recognition software, prone to medical misidentifications [...] Patient reports history of RA. Follows with sign language translator Dr. Clark out of [place]. Has been treated previously with Humira, Enbrel, [...] to the cartilage which creates discomfort with inhalation/exhalation. States this was diagnosed by Dr. Dubon out of [place], [place]. Taking methocarbamol 750 mg 3 times daily and gabapentin 100 mg 3 times daily with moderate relief of discomfort. Patient awaiting surgical scheduling for correction. #Anxiety/depression: Patient reports she has had a challenging year as her slipped rib syndrome quite a long overlooked/undiagnosed . States she has felt many health care [...] reviewed. Dictation completed with the use of [email or web address] voice recognition software, prone to medical misidentifications and grammatical errors. All errors are unintentional. Although the practitioner does try to identify and correct errors, some may be present. Please do not hesitate to contact the practitioner for clarification. Total time was 60 minutes spent with >50% on coordination of care and patient education. 11/18/2024 History of recent fall (ICD-10 - [...] intact. Mild TTP of cervical spine - flexion/extension/rota tion of the neck appears unaffected. Given recent [...] for 11/20/2024. #Recent fall: Patient seen at [facility] ED 11/02/2024 s/p fall at work. [...] diffuse joint pain and fatigue. Follows with sign language translator Dr. Clark out of [place], records requested and not yet available for my review. 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 States this was diagnosed by Dr. Dubon out of [place], [place]. Taking methocarbamol 750 mg 3 times daily and gabapentin 100 mg twice daily with moderate relief of discomfort. Patient awaiting surgical scheduling for correction. #Anxiety/depression: Patient reports she has had a challenging year as her slipped rib syndrome quite a long overlooked/undiagnosed . States she has felt many health care [...] reviewed. Dictation completed with the use of [email or web address] voice recognition software, prone to medical misidentifications [...] Patient reports history of RA. Follows with sign language translator Dr. Clark out of [place]. Has been treated previously with Humira, Enbrel, [...] to the cartilage which creates discomfort with inhalation/exhalation. States this was diagnosed by Dr. Dubon out of [place], [place]. Taking methocarbamol 750 mg 3 times daily and gabapentin 100 mg 3 times daily with moderate relief of discomfort. Patient awaiting surgical scheduling for correction. #Anxiety/depression: Patient reports she has had a challenging year as her slipped rib syndrome quite a long overlooked/undiagnosed . States she has felt many health care [...] reviewed. Dictation completed with the use of [email or web address] voice recognition software, prone to medical misidentifications [...] was diagnosed by Dr. Dubon out of [place], [place]. Taking methocarbamol 750 mg 3 times [...] Dictation was accomplished with the use of [email or web address] voice recognition software, which is prone to medical misidentifications and grammatical errors. This are unintentional and the practitioner does try to identify and correct these, but some could still be present. Please do not hesitate to contact practitioner for clarification. 03/05/2025 Depression with anxiety (ICD-10 - F41.8) María is a 59-year-old female with a PMH of rheumatoid arthritis, anxiety, slipped rib syndrome, chronic pain that presents for CPE. #Slipped rib syndrome: Follows with Dr. Dubon with [facility]. Underwent repair 12/17/2024. #Ventral hernia: Surgical history of ventral hernia repair (2018). Reports that following the procedure to correct slipped rib (12/2024) she has had a sensation of burning across the abdomen. Dr. Dubon has initiated a workup including imaging which revealed the presence of numerous surgical clips (not placed during revision of slipped rib). Per patient, it is Dr. Dubon's recommendation that a revision of her ventral hernia repair take place with goal of removing excess surgical clips and improving the patient's symptoms. Records requested for review. #Rheumatoid arthritis: + Rheumatoid factor (152). Follows with sign language translator Dr. Joshua Castellanos out of [place]. Follow-up labs including CAMILO, ESR/CRP, and comprehensive antibodies to assess for secondary underlying autoimmune disease WNL. Due to start Orencia injections -this is currently on hold due to pending ventral hernia repair revision as she cannot take a biologic leading up to surgery. Currently taking tramadol 50mg PRN for pain. #Anxiety: Patient continues to struggle with anxiety in the setting of her complex medical needs and uncertain diagnoses. Follows with psychiatric provider Clarice Lara with [facility]. Taking clonazepam 0.5 mg once daily with adequate control of symptoms. PHQ-9: 8. Denies significant symptoms of depression, AVH, SI/HI. #Generalized pains/fatigue: Patient continues to present with a myriad of musculoskeletal complaints. She follows with numerous specialists including orthopedics, neurosurgery, and pain management (amongst others). She has had comprehensive workups including labs and imaging. Saw pain management 02/04/2025 for low back pain at which time a steroid injection was administered at level of L5/S1. Also saw orthopedics 01/22/2025 and 02/06/2025 for knee pain and shoulder/neck pain respectively -it appears additional steroid and/or viscosupplementation injections were offered which the patient has declined at this time. Given the diffuse involvement and ongoing nature of the patient's pain discussed goals of care. She understands that long-term use of opioid analgesic is not recommended and plans to continue to follow with pain management. Discussed option of nonopioid pain medication Journavx, patient is agreeable to trying this. Reviewed proper use/dosing as well as side effects including but not limited to skin rash, and kidney dysfunction. #Hyperkalemia: Patient reports she was at [facility] recently at which time her potassium was elevated. Patient does experience fatigue and muscle weakness, no worse than normal. CMP, Mg, CBC, vitamin D, B12/folate ordered for continued evaluation. Patient seen and examined. Comprehensive discussion was done on the followin. Discussed the importance of a diet rich in fruit, vegetables, legumes and healthy fats. Patient advised to avoid processed food and carbohydrates, added sugars, and saturated/trans fats. When possible, prepare your own meals and avoid fast food. Read nutrition labels - avoid ingredients including high fructose corn syrup and preservatives. Be contentious of daily calorie intake and weight. 2. Discussed the importance of regular physical activity. Recommended a goal 6-10k steps or 30 minutes of walking per day. Discussed the benefit of weight-bearing exercise and strength training with proper body mechanics/safety precautions. Other activities including cycling, hiking, etc. are recommended and encouraged. Patient advised to seek medical attention for any SOB, chest pain, muscle or joint pain associated with exercise. 3. Discussed risks and benefits of age-appropriate screening guidelines including but not limited to colonoscopy (UTD 08/28/23), mammogram (UTD 11/2024), breast examinations, and PAP smears (Due 03/2025). 4. Discussed safe driving, utilization of seat belts, and the importance of refraining from smartphone while driving. 5. Age-appropriate immunizations were discussed including but not limited to Shingles vaccine (recommended), pneumonia vaccine (UTD ), influenza vaccine (UTD ), Tdap (UTD 01/09/19), etc. All questions answered to the patients satisfaction. Patient demonstrates understanding of diagnosis and treatments discussed. Follow-up in 1 month, sooner should any questions/concerns arise. Case discussed with collaborating physician Velia Morrison who has reviewed the assessment/plan. Chart, medications, labs, and vital signs reviewed. Dictation completed with the use of [email or web address] voice recognition software, prone to medical misidentifications and grammatical errors. All errors are unintentional. Although the practitioner does try to identify and correct errors, some may be present. Please do not hesitate to contact the practitioner for clarification. Total time was 60 minutes spent with >50% on coordination of care and patient education. 05/05/2025 Rheumatoid arthritis involving multiple sites with positive rheumatoid factor (ICD-10 - M05.79) María is a 59-year-old female with a PMH of RA, slipped rib syndrome, chronic pain that presents today for evaluation of rash involving both forearms. #Skin tear: Patient presents today with concern for petechial rash on bilateral forearms. She feels this may be due to initiation of treatment with RA injection (Orencia) or recent inpatient DVT prophylaxis. On exam there is an oval hematoma with minimal surrounding petechiae and a centrally located skin tear. No visible bleeding or discharge on exam. No surrounding erythema, edema, or palpable warmth. There is also a small, dime-sized, round hematoma on the distal right forearm. All remaining skin is warm, dry, and intact. Patient provided with antibacterial ointment and gauze in office - she understands the importance of keeping the area clean/dry. Increased bruising likely due to recent DVT prophylaxis. She is encouraged to contact rheum (Dr. Joshua Castellanos) to discuss involvement of RA medication. On review of most recent CBC, RBC mildly low and MCV high. Will order CBC, CMP, B12, and folate for continued evaluation. Patient requesting dermatology referral, referral provided. #Irregular bowel movements: Patient requesting urgent colonoscopy per recommendation of [facility] surgeon Jewel Dubon. On review of Dr. Dubon's most recent note, it appears patient reports ongoing symptoms of RUQ pain and constipation for which he recommended MiraLAX and colonoscopy. Patient takes MiraLAX once daily with resultant diarrhea. Denies the presence of blood in the stool. No personal/family history of IBD/colon cancer. Patient established with Rajan Sanders with GI, she is encouraged to follow-up with their office to discuss possibility of updating colonoscopy (most recent colonoscopy 2021). #Depression/Anxiety: Continues to endorse exacerbation of chronic depression due to unresolved chronic pain in the area of the right ribs. Denies SI/HI. Follows with therapist Shlomo Fernandez once weekly and psychiatric provider Clarice Lara regularly. Discontinued Zoloft due to development of rash. Continues to take lorazepam 0.5mg up to TID. She understands the importance of taking her medications with compliance and as prescribed. ED protocol reviewed. #Chronic pain: Patient continues to struggle with ongoing right sided flank pain for over 3 years. 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 Currently taking gabapentin TID without symptom improvement. Follows with painter ordnance Dr. Trivedi. Historically the patient has tried numerous nonopioid pain management medications including but not limited to ibuprofen, meloxicam, mirtazapine, baclofen, tizanidine, cyclobenzaprine, Tylenol, topical lidocaine patches, and Journavx - all of which are reported to be not helpful. Of note: This is a patient that presents with a myriad of complaints at each visit - most significantly her chronic pain. She follows with numerous specialists including but not limited to orthopedics, neurology, GI, psychiatry, rheumatology, thoracic surgery, etc. She has had extensive testing including XRs, CT scans, and MRIs. Furthermore, she has had comprehensive laboratory evaluation. Unfortunately, with the diagnostics we have, there is no current evidence of any disease state/anatomic abnormality that can be pinpointed to be the direct cause of the pain she is experiencing. Discussed at length and provided reassurance that each member of her care team works to treat disease states that can be identified with goal of improving her quality of life. All questions answered to the patient's satisfaction. Patient demonstrates understanding of diagnosis and treatments discussed. Follow-up at next scheduled appointment, sooner should any questions/concerns arise. Case discussed with collaborating physician Velia Morrison who has reviewed the assessment/plan. Chart, medications, labs, and vital signs reviewed. Dictation completed with the use of [email or web address] voice recognition software, prone to medical misidentifications and grammatical errors. All errors are unintentional. Although the practitioner does try to identify and correct errors, some may be present. Please do not hesitate to contact the practitioner for clarification. Total time was 60 minutes spent with >50% on coordination of care and patient education. 04/23/2025 Pulmonary nodule (ICD-10 - R91.1) María is a 59-year-old female with a PMH of RA, slipped rib syndrome, chronic pain that presents today for ER follow-up hospital follow-up. María presented to [facility] ED 04/19/2025 with chief complaint of suicidal ideation due to her chronic pain. At that time she endorsed poor quality of sleep, increased tobacco use, and increased alcohol use all secondary to her pain. ED workup significant for intoxicated ANIYAH of 132, otherwise WNL. Patient was admitted for voluntary psychiatric hold at that time. #Depression/Anxiety: Continues to endorse exacerbation of chronic depression due to unresolved chronic pain in the area of the right ribs. Denies having plan or intent to harm herself or others at this time. She has since established with therapist Shlomo Christian which she feels will be helpful, due to be seen 04/29/25. She additionally follows with psychiatric provider Clarice Lara regularly. Taking Zoloft 25mg daily and lorazepam 0.5mg up to TID. She understands the importance of taking her medications with compliance and as prescribed. ED protocol reviewed. #Alcohol use: At time of admission patient endorsed increased alcohol use with goal of controlling her pain. ANIYAH 132. Since time of discharge she denies any alcohol use. Denies seizure activity, involuntary movements, or AVH. #Chronic pain: Patient continues to struggle with ongoing right sided flank pain for over 3 years. 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 While inpatient patient received Tylenol, Dilaudid, and ketorolac for pain management. Not currently taking any pain medication. Previously followed with painter [employer] Dr. Trivedi who provided steroid injections. Historically the patient has tried numerous nonopioid pain management medications including but not limited to ibuprofen, meloxicam, mirtazapine, baclofen, tizanidine, cyclobenzaprine, Tylenol, gabapentin, topical lidocaine patches, and Journavx - all of which are reported to be not helpful. Regularly requests opioid pain management. Given use of benzodiazepines and unclear alcohol use discussed risks with added opioid use. WIll refer to painter ordnance with goal of establishing safe pain management regimen. #RA: Follows with Joshua Castellanos MD out of [place]. Discussed possibility of chronic pain being related to untreated rheumatoid arthritis. She is strongly encouraged to follow-up with rheumatology as scheduled at the end of April and to also start her Orencia injection per their recommendations. #Lung Nodules: PMH of latent TB s/p treatment completion. Most recent chest CT 12/05/2024 reveals bilateral pulmonary nodules with recommended follow-up CT in [address] of the chest without contrast today. #Snoring: Patient reports that while inpatient she was observed gasping for air and snoring loudly while asleep. Expresses concern for underlying sleep apnea stop/ban. Patient requesting referral to sleep medicine, referral provided. Of note: This is a patient that presents with a myriad of complaints at each visit - most significantly her chronic pain. She follows with numerous specialists including but not limited to orthopedics, neurology, GI, psychiatry, rheumatology, thoracic surgery, etc. She has had extensive testing including XRs, CT scans, and MRIs. Furthermore, she has had comprehensive laboratory evaluation. Unfortunately, with the diagnostics we have, there is no current evidence of any disease state/anatomic abnormality that can be pinpointed to be the direct cause of the pain she is experiencing. Discussed at length and provided reassurance that each member of her care team works to treat disease states that can be identified with goal of improving her quality of life. All questions answered to the patient's satisfaction. Patient demonstrates understanding of diagnosis and treatments discussed. Follow-up at next scheduled appointment, sooner should any questions/concerns arise. Case discussed with collaborating physician Velia Morrison who has reviewed the assessment/plan. Chart, medications, labs, and vital signs reviewed. Dictation completed with the use of [email or web address] voice recognition software, prone to medical misidentifications and grammatical errors. All errors are unintentional. Although the practitioner does try to identify and correct errors, some may be present. Please do not hesitate to contact the practitioner for clarification. Total time was 60 minutes spent with >50% on coordination of care and patient education. 04/23/2025 History of latent tuberculosis (ICD-10 - Z86.15) María is a 59-year-old female with a PMH of RA, slipped rib syndrome, chronic pain that presents today for ER follow-up hospital follow-up. María presented to [facility] ED 04/19/2025 with chief complaint of suicidal ideation due to her chronic pain. At that time she endorsed poor quality of sleep, increased tobacco use, and increased alcohol use all secondary to her pain. ED workup significant for intoxicated ANIYAH of 132, otherwise WNL. Patient was admitted for voluntary psychiatric hold at that time. #Depression/Anxiety: Continues to endorse exacerbation of chronic depression due to unresolved chronic pain in the area of the right ribs. Denies having plan or intent to harm herself or others at this time. She has since established with therapist Shlomo Christian which she feels will be helpful, due to be seen 04/29/25. She additionally follows with psychiatric provider Clarice Lara regularly. Taking Zoloft 25mg daily and lorazepam 0.5mg up to TID. She understands the importance of taking her medications with compliance and as prescribed. ED protocol reviewed. #Alcohol use: At time of admission patient endorsed increased alcohol use with goal of controlling her pain. ANIYAH 132. Since time of discharge she denies any alcohol use. Denies seizure activity, involuntary movements, or AVH. #Chronic pain: Patient continues to struggle with ongoing right sided flank pain for over 3 years. 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 While inpatient patient received Tylenol, Dilaudid, and ketorolac for pain management. Not currently taking any pain medication. Previously followed with painter ordn[employer] Dr. Trivedi who provided steroid injections. Historically the patient has tried numerous nonopioid pain management medications including but not limited to ibuprofen, meloxicam, mirtazapine, baclofen, tizanidine, cyclobenzaprine, Tylenol, gabapentin, topical lidocaine patches, and Journavx - all of which are reported to be not helpful. Regularly requests opioid pain management. Given use of benzodiazepines and unclear alcohol use discussed risks with added opioid use. WIll refer to painter ordnance with goal of establishing safe pain management regimen. #RA: Follows with Joshua Castellanos MD out of [place]. Discussed possibility of chronic pain being related to untreated rheumatoid arthritis. She is strongly encouraged to follow-up with rheumatology as scheduled at the end of April and to also start her Orencia injection per their recommendations. #Lung Nodules: PMH of latent TB s/p treatment completion. Most recent chest CT 12/05/2024 reveals bilateral pulmonary nodules with recommended follow-up CT in [address] of the chest without contrast today. #Snoring: Patient reports that while inpatient she was observed gasping for air and snoring loudly while asleep. Expresses concern for underlying sleep apnea stop/ban. Patient requesting referral to sleep medicine, referral provided. Of note: This is a patient that presents with a myriad of complaints at each visit - most significantly her chronic pain. She follows with numerous specialists including but not limited to orthopedics, neurology, GI, psychiatry, rheumatology, thoracic surgery, etc. She has had extensive testing including XRs, CT scans, and MRIs. Furthermore, she has had comprehensive laboratory evaluation. Unfortunately, with the diagnostics we have, there is no current evidence of any disease state/anatomic abnormality that can be pinpointed to be the direct cause of the pain she is experiencing. Discussed at length and provided reassurance that each member of her care team works to treat disease states that can be identified with goal of improving her quality of life. All questions answered to the patient's satisfaction. Patient demonstrates understanding of diagnosis and treatments discussed. Follow-up at next scheduled appointment, sooner should any questions/concerns arise. Case discussed with collaborating physician Velia Morrison who has reviewed the assessment/plan. Chart, medications, labs, and vital signs reviewed. Dictation completed with the use of [email or web address] voice recognition software, prone to medical misidentifications and grammatical errors. All errors are unintentional. Although the practitioner does try to identify and correct errors, some may be present. Please do not hesitate to contact the practitioner for clarification. Total time was 60 minutes spent with >50% on coordination of care and patient education. 03/05/2025 Rheumatoid arthritis involving multiple sites with positive rheumatoid factor (ICD-10 - M05.79) María is a 59-year-old female with a PMH of rheumatoid arthritis, anxiety, slipped rib syndrome, chronic pain that presents for CPE. #Slipped rib syndrome: Follows with Dr. Dubon with [facility]. Underwent repair 12/17/2024. #Ventral hernia: Surgical history of ventral hernia repair (2018). Reports that following the procedure to correct slipped rib (12/2024) she has had a sensation of burning across the abdomen. Dr. Dubon has initiated a workup including imaging which revealed the presence of numerous surgical clips (not placed during revision of slipped rib). Per patient, it is Dr. Dubon's recommendation that a revision of her ventral hernia repair take place with goal of removing excess surgical clips and improving the patient's symptoms. Records requested for review. #Rheumatoid arthritis: + Rheumatoid factor (152). Follows with sign language translator Dr. Joshua Castellanos out of [place]. Follow-up labs including CAMILO, ESR/CRP, and comprehensive antibodies to assess for secondary underlying autoimmune disease WNL. Due to start Orencia injections -this is currently on hold due to pending ventral hernia repair revision as she cannot take a biologic leading up to surgery. Currently taking tramadol 50mg PRN for pain. #Anxiety: Patient continues to struggle with anxiety in the setting of her complex medical needs and uncertain diagnoses. Follows with psychiatric provider Clarice Lara with [facility]. Taking clonazepam 0.5 mg once daily with adequate control of symptoms. PHQ-9: 8. Denies significant symptoms of depression, AVH, SI/HI. #Generalized pains/fatigue: Patient continues to present with a myriad of musculoskeletal complaints. She follows with numerous specialists including orthopedics, neurosurgery, and pain management (amongst others). She has had comprehensive workups including labs and imaging. Saw pain management 02/04/2025 for low back pain at which time a steroid injection was administered at level of L5/S1. Also saw orthopedics 01/22/2025 and 02/06/2025 for knee pain and shoulder/neck pain respectively -it appears additional steroid and/or viscosupplementation injections were offered which the patient has declined at this time. Given the diffuse involvement and ongoing nature of the patient's pain discussed goals of care. She understands that long-term use of opioid analgesic is not recommended and plans to continue to follow with pain management. Discussed option of nonopioid pain medication Journavx, patient is agreeable to trying this. Reviewed proper use/dosing as well as side effects including but not limited to skin rash, and kidney dysfunction. #Hyperkalemia: Patient reports she was at [facility] ED recently at which time her potassium was elevated. Patient does experience fatigue and muscle weakness, no worse than normal. CMP, Mg, CBC, vitamin D, B12/folate ordered for continued evaluation. Patient seen and examined. Comprehensive discussion was done on the followin. Discussed the importance of a diet rich in fruit, vegetables, legumes and healthy fats. Patient advised to avoid processed food and carbohydrates, added sugars, and saturated/trans fats. When possible, prepare your own meals and avoid fast food. Read nutrition labels - avoid ingredients including high fructose corn syrup and preservatives. Be contentious of daily calorie intake and weight. 2. Discussed the importance of regular physical activity. Recommended a goal 6-10k steps or 30 minutes of walking per day. Discussed the benefit of weight-bearing exercise and strength training with proper body mechanics/safety precautions. Other activities including cycling, hiking, etc. are recommended and encouraged. Patient advised to seek medical attention for any SOB, chest pain, muscle or joint pain associated with exercise. 3. Discussed risks and benefits of age-appropriate screening guidelines including but not limited to colonoscopy (UTD 08/28/23), mammogram (UTD 11/2024), breast examinations, and PAP smears (Due 03/2025). 4. Discussed safe driving, utilization of seat belts, and the importance of refraining from smartphone while driving. 5. Age-appropriate immunizations were discussed including but not limited to Shingles vaccine (recommended), pneumonia vaccine (UTD ), influenza vaccine (UTD ), Tdap (UTD 01/09/19), etc. All questions answered to the patients satisfaction. Patient demonstrates understanding of diagnosis and treatments discussed. Follow-up in 1 month, sooner should any questions/concerns arise. Case discussed with collaborating physician Velia Morrison who has reviewed the assessment/plan. Chart, medications, labs, and vital signs reviewed. Dictation completed with the use of [email or web address] voice recognition software, prone to medical misidentifications [...] intact. Mild TTP of cervical spine - flexion/extension/rota tion of the neck appears unaffected. Given recent [...] for 11/20/2024. #Recent fall: Patient seen at [facility] ED 11/02/2024 s/p fall at work. [...] diffuse joint pain and fatigue. Follows with sign language translator Dr. Clark out of [place], records requested and not yet available for my review. 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 States this was diagnosed by Dr. Dubon out of [place], [place]. Taking methocarbamol 750 mg 3 times daily and gabapentin 100 mg twice daily with moderate relief of discomfort. Patient awaiting surgical scheduling for correction. #Anxiety/depression: Patient reports she has had a challenging year as her slipped rib syndrome quite a long overlooked/undiagnosed . States she has felt many health care [...] reviewed. Dictation completed with the use of [email or web address] voice recognition software, prone to medical misidentifications [...] intact. Mild TTP of cervical spine - flexion/extension/rota tion of the neck appears unaffected. Given recent [...] for 11/20/2024. #Recent fall: Patient seen at [facility] ED 11/02/2024 s/p fall at work. [...] diffuse joint pain and fatigue. Follows with sign language translator Dr. Clark out of [place], records requested and not yet available for my review. 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 States this was diagnosed by Dr. Dubon out of [place], [place]. Taking methocarbamol 750 mg 3 times daily and gabapentin 100 mg twice daily with moderate relief of discomfort. Patient awaiting surgical scheduling for correction. #Anxiety/depression: Patient reports she has had a challenging year as her slipped rib syndrome quite a long overlooked/undiagnosed . States she has felt many health care [...] reviewed. Dictation completed with the use of [email or web address] voice recognition software, prone to medical misidentifications and grammatical errors. All errors are unintentional. Although the practitioner does try to identify and correct errors, some may be present. Please do not hesitate to contact the practitioner for clarification. Total time was 60 minutes spent with >50% on coordination of care and patient education. 04/23/2025 Loud snoring (ICD-10 - R06.83) María is a 59-year-old female with a PMH of RA, slipped rib syndrome, chronic pain that presents today for ER follow-up hospital follow-up. María presented to [facility] ED 04/19/2025 with chief complaint of suicidal ideation due to her chronic pain. At that time she endorsed poor quality of sleep, increased tobacco use, and increased alcohol use all secondary to her pain. ED workup significant for intoxicated ANIYAH of 132, otherwise WNL. Patient was admitted for voluntary psychiatric hold at that time. #Depression/Anxiety: Continues to endorse exacerbation of chronic depression due to unresolved chronic pain in the area of the right ribs. Denies having plan or intent to harm herself or others at this time. She has since established with therapist Shlomo Christian which she feels will be helpful, due to be seen 04/29/25. She additionally follows with psychiatric provider Clarice Lara regularly. Taking Zoloft 25mg daily and lorazepam 0.5mg up to TID. She understands the importance of taking her medications with compliance and as prescribed. ED protocol reviewed. #Alcohol use: At time of admission patient endorsed increased alcohol use with goal of controlling her pain. ANIYAH 132. Since time of discharge she denies any alcohol use. Denies seizure activity, involuntary movements, or AVH. #Chronic pain: Patient continues to struggle with ongoing right sided flank pain for over 3 years. 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 While inpatient patient received Tylenol, Dilaudid, and ketorolac for pain management. Not currently taking any pain medication. Previously followed with painter ordnance Dr. Trivedi who provided steroid injections. Historically the patient has tried numerous nonopioid pain management medications including but not limited to ibuprofen, meloxicam, mirtazapine, baclofen, tizanidine, cyclobenzaprine, Tylenol, gabapentin, topical lidocaine patches, and Journavx - all of which are reported to be not helpful. Regularly requests opioid pain management. Given use of benzodiazepines and unclear alcohol use discussed risks with added opioid use. WIll refer to painter ordnance with goal of establishing safe pain management regimen. #RA: Follows with Joshua Castellanos MD out of [place]. Discussed possibility of chronic pain being related to untreated rheumatoid arthritis. She is strongly encouraged to follow-up with rheumatology as scheduled at the end of April and to also start her Orencia injection per their recommendations. #Lung Nodules: PMH of latent TB s/p treatment completion. Most recent chest CT 12/05/2024 reveals bilateral pulmonary nodules with recommended follow-up CT in [address] of the chest without contrast today. #Snoring: Patient reports that while inpatient she was observed gasping for air and snoring loudly while asleep. Expresses concern for underlying sleep apnea stop/ban. Patient requesting referral to sleep medicine, referral provided. Of note: This is a patient that presents with a myriad of complaints at each visit - most significantly her chronic pain. She follows with numerous specialists including but not limited to orthopedics, neurology, GI, psychiatry, rheumatology, thoracic surgery, etc. She has had extensive testing including XRs, CT scans, and MRIs. Furthermore, she has had comprehensive laboratory evaluation. Unfortunately, with the diagnostics we have, there is no current evidence of any disease state/anatomic abnormality that can be pinpointed to be the direct cause of the pain she is experiencing. Discussed at length and provided reassurance that each member of her care team works to treat disease states that can be identified with goal of improving her quality of life. All questions answered to the patient's satisfaction. Patient demonstrates understanding of diagnosis and treatments discussed. Follow-up at next scheduled appointment, sooner should any questions/concerns arise. Case discussed with collaborating physician Velia Morrison who has reviewed the assessment/plan. Chart, medications, labs, and vital signs reviewed. Dictation completed with the use of [email or web address] voice recognition software, prone to medical misidentifications [...] intact. Mild TTP of cervical spine - flexion/extension/rota tion of the neck appears unaffected. Given recent [...] for 11/20/2024. #Recent fall: Patient seen at [facility] ED 11/02/2024 s/p fall at work. [...] diffuse joint pain and fatigue. Follows with sign language translator Dr. Clark out of [place], records requested and not yet available for my review. 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 States this was diagnosed by Dr. Dubon out of [place], [place]. Taking methocarbamol 750 mg 3 times daily and gabapentin 100 mg twice daily with moderate relief of discomfort. Patient awaiting surgical scheduling for correction. #Anxiety/depression: Patient reports she has had a challenging year as her slipped rib syndrome quite a long overlooked/undiagnosed . States she has felt many health care [...] reviewed. Dictation completed with the use of [email or web address] voice recognition software, prone to medical misidentifications and grammatical errors. All errors are unintentional. Although the practitioner does try to identify and correct errors, some may be present. Please do not hesitate to contact the practitioner for clarification. Total time was 60 minutes spent with >50% on coordination of care and patient education. 02/13/2025 María is a 59-year-old female with a PMH of RA, slipped rib syndrome, Rock's that presents today for CPE. Medical history including history reviewed. Calcific tenditiis: Slipped rib syndrome: Previously following with Dr. Dubon out of [place], [place]. Underwent surgical correction RA: +RF - exentsive labs including ESR/CRP, [id number] DNA, C3 and C for complement, anti-Bermeo antibodies, anti-B2 antibodies, anti-Lakisha antibodies, creatinine kinase, and anti-SSA/anti-SSB antibodies WNL. Follows with Eduardo out of [place], [place]. Continue meloxicam 15mg. Anxiety: Follows with psychatiric [employer] Cassidy Quiroz. Continue lorazepam 1mg TID as needed. Rock's: Patient reports PMH of Rock's. Denies history of levothyroxine use. TSH WNL at 0.6. 12/04/2024 María is a 59-year-old female with a [...] intact. Mild TTP of cervical spine - flexion/extension/rota tion of the neck appears unaffected. Given recent [...] for 11/20/2024. #Recent fall: Patient seen at [facility] ED 11/02/2024 s/p fall at work. [...] diffuse joint pain and fatigue. Follows with sign language translator Dr. Clark out of [place], records requested and not yet available for my review. 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 States this was diagnosed by Dr. Dubon out of [place], [place]. Taking methocarbamol 750 mg 3 times daily and gabapentin 100 mg twice daily with moderate relief of discomfort. Patient awaiting surgical scheduling for correction. #Anxiety/depression: Patient reports she has had a challenging year as her slipped rib syndrome quite a long overlooked/undiagnosed . States she has felt many health care [...] reviewed. Dictation completed with the use of [email or web address] voice recognition software, prone to medical misidentifications and grammatical errors. All errors are unintentional. Although the practitioner does try to identify and correct errors, some may be present. Please do not hesitate to contact the practitioner for clarification. Total time was 60 minutes spent with >50% on coordination of care and patient education. Plan Of Treatment Pending Test Test Name Order Date Hemoglobin A1c 10/28/2024 Anti-dsDNA Antibodies 12/13/2024 Anti-Lakisha-1 12/13/2024 CAMILO w/Reflex 10/28/2024 ESR 10/28/2024 ESR 12/13/2024 Ultrasound : Neck 01/22/2025 EKG 11/18/2024 EKG 03/21/2025 CBC (COMPLETE BLOOD COUNT) WITH DIFF CBC (COMPLETE BLOOD COUNT) WITH DIFF 05/2025 COMPLEMENT C3 12/13/2024 COMPLEMENT C4 12/13/2024 COMPREHENSIVE METABOLIC PANEL 12/13/2024 COMPREHENSIVE METABOLIC PANEL 03/21/2025 CRP, HIGH SENSITIVITY 10/28/2024 FERRITIN 10/28/2024 FERRITIN 03/05/2025 IRON & TIBC 03/05/2025 IRON & TIBC 10/28/2024 LIPID PANEL 10/28/2024 MAGNESIUM 03/21/2025 TSH 03/21/2025 TSH 10/28/2024 URINALYSIS W/REFLEX CULTURE 03/21/2025 Culture MRSA Nasal 03/21/2025 Anti Bermeo Antibody 12/13/2024 CBC with Differential 10/28/2024 CT Chest w/o Contrast 04/23/2025 VITAMIN B12 05/05/2025 VITAMIN B12 03/05/2025 RHEUMATOID FACTOR 10/28/2024 MAGNESIUM 03/05/2025 COMPREHENSIVE METABOLIC PANEL 03/05/2025 COMPREHENSIVE METABOLIC PANEL 05/05/2025 CBC (INCLUDES DIFF/PLT) 03/05/2025 CBC (INCLUDES DIFF/PLT) 03/05/2025 HS CRP 12/13/2024 HEMOGLOBIN A1c 05/05/2025 TSH W/REFLEX TO FT4 03/05/2025 TSH W/REFLEX TO FT4 03/05/2025 VITAMIN D,25-OH,TOTAL,IA 03/05/2025 VITAMIN D,25-OH,TOTAL,IA 10/28/2024 FOLATE 03/05/2025 FOLATE 05/05/2025 CR Spine Cervical Min 4 Views 11/18/2024 US Soft Tissue Head Neck 02/03/2025 Comp. Metabolic Panel [phone] Anti-Mi-2 Ab (RDL)-[id number] 12/13/2024 Anti-Ro (SS-A) Ab (RDL)-[id number] 5 Anti-La (SS-B) Ab (RDL)-[id number] 5 CREATINE KINASE AND CKMB 12/13/2024 Insurance Providers Payer Name Payer Address Payer Phone Subscriber Number Group Number Insured Name Patient Relationship to Insured Coverage Start Date Coverage End Date [facility] [address] [address] [place] [address] [id number] [id number] María Phillips Self - patient is the insured Medical (General) History Surgical History Surgery Date(Month/Year) ventral hernia repair 2018 cholecystectomy 1999 left ACL repair 1997 Right carpal tunnel release 2019 bilateral strabismus correction 1974 costal margin repair of slipped rib 12/07 11/30 mesh revision/surgical clip removal from ventral hernia repair 03/25/25 Hospitalization History Reason Date(Month/Year) Numerous ED visits
--- OUTSIDE RECORDS SUMMARY | 2025-05-14 11:57 | XMS_ITS | Clinical Summary ---
Author Organization [facility] Address [address] [place] [address] Care Team Providers Care Chemist Intern Name Role Phone Vee Allan MD Primary [...] 84 07/09/2024 10:00 AM EDT Temperature 36.9 C (98.4 F) 07/09/2024 10:00 AM EDT Respiratory Rate 18 01/20/2020 10:49 AM EDT [...] series) 07/20/2022 02/21/2022, 01/17/2022 COVID-19 Vaccine ( season) 2024 02/02/2022, 07/05/2021, 06/24/2021, Additional history exists Influenza Vaccine (#1) 2025 , 09/19/2022, 08/02/2021, Additional history exists DTap / Tdap / Td (3 - Td or Tdap) 01/09/2029 01/09/2019, 06/01/2015 Hepatitis C Screening Completed 05/20/2024 RSV Ped < 20 months Aged Out No longe r eligible based on patient's age to complete this topic Care Teams Chemist Intern Relationship Specialty Start Date End Date Vee Allan MD PCP - General Internal Medicine 12/05/19
--- OUTSIDE RECORDS SUMMARY | 2025-05-14 11:57 | XMS_ITS | Data Portability ---
Author Organization [facility], [address] Address [address] [place] [address] Care Team Providers Care Accounting System Expert Name Role Phone [facility] Primary Care Provi ramses Assessment No assessment recorded. Plan of Treatment Reminders Order Date Submit Date Provider Last Modified By Organization Details Last Modified Time Details Appointments None recorded. Lab rapid strep group A, throat 2022 023 [email or web address] [facility], [address] [place] [address], [address], 3 19:09:54 streptococc us group A, culture, throat 2022 023 [email or web address] [facility], [address] [place] [address], [place], [address], 3 19:09:54 Referral emergency medicine referral - left lower facial weakness and numbness x 5 days [email or web address] Emergency Department, [address] [place], [address], 4 18:35:48 Procedures None recorded. Surgeries None recorded. Imaging None recorded. Medication Orders prednisone 20 mg tablet 2022 023 [email or web address] 5 [id number], [address] [place], [address], 4 16:05:23 benzonatate 200 mg capsule 2022 023 yestrella 5 [id number], [address] [place], [address], 16:05:13 Patient TargetsNo targets recorded. Patient Instructions Encounter Date Encounter Id Patient Instructions Last Modified By Organization Details Last Modified Time 12/17/2022 [id number] sore throat: car e instructions [email or web address] Not [...] visit to the nearest Emergency Department. . [email or web address] Not available 12/17/2022 19:10:37 Sinusitis is an [...] care for yourself at home? Take an ntcy-phb-nsvvqed pain medicine. Avoid Ibuprofen, Aleve and Aspirin if . If the doctor prescribed antibiotics, take them as directed. Do not stop taking them just because you feel better. You need to take the full course of antibiotics. Be careful when taking wmwf-hyz-edvyabr cold or influenza (flu) medicines and Tylenol [...] 3 days can make your congestion worse. [email or web address] Not available 12/17/2022 19:07:18 05/19/2024 [id number] head or face zehra n: care instructions [...] Range : Negat aashish Not Available [facility] ([facility]) [address] [facility], [place], [address], 12/21/2022 06:07:48 12/17/1912/17/2022 rapid strep group A, throa t Unknown Analyte Normal = Negati ve Not Available [address] [place], [address], 12/17/2022 18:34:11 12/17/1912/17/2022 rapid strep group A, throa t Unknown Analyte negati ve Not Available [address] [place], [address], 12/17/2022 18:34:11 Result Notes None recorded. 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 Procedures Surgical History Date Name Laterality Status Provider Name and Address Organization Details Recorded Time 2 procedure on wrist completed ANNETTE NORMANICA PA - [facility] 12/17/2022 18:39:38 Imaging Results None recorded. Procedure Notes None recorded. Medical Equipment None Reported. Allergies Allergen ID Allergen Name Allergen Category Reaction Reaction Severity Criticality Documentation Date Start Date Code Code System Note Provider Name and Address Organization Details Recorded Time 142352 erythromy libby medicatio n hives Not available [...] blood by Pulse oximetry Heart rate Systolic And Diastolic Provider Name and Address Organization Details Last Updated DateTime 3 162.56 cm 27.5 kg/m2 96503.7 8 g 97 [degF] 16 /min 98 % 98 % 70 /min 138/89 mm[Hg] ANNETTE RAYMOND PA - [facility] 3 18:41:54 Date Recorded Body height Body mass index (BMI) Body weight Body temperature Respiratory rate Heart rate Oxygen saturation Oxygen saturation in Arterial blood by Pulse oximetry Systolic And Diastolic Provider Name and Address Organization Details Last Updated DateTime 4 162.56 cm 27.5 kg/m2 94817.7 8 g 97.9 [degF] 18 /min 89 /min 98 % 98 % 121/82 mm[Hg] Nella Ayla PA - [facility] 4 16:07:24 Social History Question Answer Notes LastModified by [employer] Details LastModified Time Tobacco Smoking Status Current Every Day Smoker ANNETTE RAYMOND null, PA - [facility] 12/17/2022 18:39:13 Have You Had Direct Contact, Or Contact During Intimacy, With Monkeypox Rash, Scabs, Or Body Fluids From A Person With Monkeypox? No Information not available 05/19/2024 What Was The Date Of Your Most Recent Tobacco Screening? 05/19/2024 Information not available 05/19/2024 How Much Tobacco Do You Smoke? 0.5 PPD [email or web address] Information not available 12/17/2022 Have You Recently Traveled Abroad? No [email or web address] Information not available 12/17/2022 Sex: Unknown Functional Status Question Answer Note LastModified by [email or web address] Details LastModified Time Do you use any illicit or recreational drugs? No [email or web address] Information not available 12/17/2022 Do you or have you ever used any other forms of tobacco or nicotine? No [email or web address] Information not available 12/17/2022 What is your level of alcohol consumption? Occasional Information not available 05/19/2024 Mental Status None recorded. Family History Relationship Description Onset Age of this Age Resolved Age Notes LastModified by Organization Details LastModified Time Unspecified Relation Disorder of thyroid gland [email or web address] Not available 2022 18:38:50 Medical History No [...] SNOMED-CT Code Diagnosis ICD10 Code Diagnosis Note [id number] [place] [address] [facility] [place] [address] 12/17/2022 17:31:11 12/17/2022 19:17:28 Sore throat 672065473 J02.9 [id number] [place] [address] [address] 05/19/2024 15:59:19 05/19/2024 16:21:39 Numbness of face 771966979 R20.0 ER now !!! Health Concerns Section Related Observation LastModified by Organization Detai ls LastModified Time None Recorded Concern Status LastModified by Organization Details LastModified Time None Recorded Advance Directives Directive None Recorded Payers Insurance Date Sequence Insurance Name Policy Number Policy Chacko Covered Member ID Chacko Member ID Guarantor Name 05/19/2024 2 [facility] - [facility] [id number] [facility] 05/19/2024 1 [facility] - [place] - DOS PRIOR TO 2024 (PPO) [id number] 12/17/2022 2 [employer] (POS) [facility] [id number] 05/19/2024 1 [employer] - [place] - DOS ON OR BEFORE 11/05/2023 - GEHA (PPO) [facility] [id number] [facility] 05/02/2023 1 [employer] [facility] [id number] Notes Date Note Type Note Provider Name [...] Modifying Factors:exposed to Strep non household Narendra Diaz, NICOLE [address] [place], [address], [place] - [facility] 12/17/2022 19:11:14 4 text/html a couple of weeks. twitching in face. x5 days having facial pain. pain level is 5/10. feels slight numbness on left side of mouth. patient also notices lower facial weakness as well. no chest pain. has slight head ache Juan F Noe DO [address] [place], [address], [place] - [facility] 05/19/2024 16:42:19 OBGyn Episode No OBEpisode recorded.
--- OUTSIDE RECORDS SUMMARY | 2025-05-14 11:57 | XMS_ITS | Continuity of Care Document ---
Author Organization [facility] [address] [place] [address] Phone [phone] Care Team Providers Care Grocery Shopper Name Role Phone Vee Queen M.D Care Team Informa tijolanta Primary Operator [phone] Problems Active Problems Provider Date Anxiety Eric Shah M.D. 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 12/01/2022 [id number] Capsules Take 1 Capsule By Mouth 2 Times A Day Terence Olvera MD Qygotfxskvxanlzlnx1s g TBPK follow package directions Unknown Vital Signs Date Vital Result Comment 12/01/2022 11:00am BP Systolic 130 mmHg BP Diastolic 70 mmHg Heart Rate 72 /min Height 64 inches 5'4 Weight 185.00 lb BMI (Body Mass Index) 31.8 kg/m2 Results Test Acquired Date Facility Test Result H/L Range N ote Cortisol 01/20/2023 [facility] Refer ce Lab Cortisol 0.6 g/dL 1 Cortisol 01/06/2023 [facility] Refer ce Lab Cortisol <pending> Cortisol 01/05/2023 [facility] Refer ce Lab Cortisol 5.3 g/dL 2 Free T4 01/05/2023 [facility] Referen ce Lab Free T4 0.98 ng/dL (0.70-1.80) [facility] 0.52 uIU/mL (0.4-4.2) Free T4 01/04/2023 [facility] Referen ce Lab Free T4 <pending> TSH 01/04/2023 [facility] TSH <pending> 1 Reference Range: [...]
--- OUTSIDE RECORDS SUMMARY | 2025-05-14 11:57 | XMS_ITS | Patient Health Record ---
Author Organization [employer] [facility] Address [address] [place] [address] [address] [place] [address] Care Team Providers Care Mixed Signal Design Engineer Name Role Phone LINDA KHAN Primary Care Provider [phone] Hugo Plata Unavailable [phone] Allergies Allergen (clinical drug ingredient) Drug/Non Drug Allergy documented on EMR Reaction Allergy Type Onset Date Status azithromycin Azithromycin Unknown Drug Allergy A ctive clindamycin Clindamycin Unknown Drug Allergy Act aashish Results Component Value Reference Range Notes Lipid Panel-[id number] Reviewed date:09/09/2024 12:30:11 PM Interpretation: Performing Lab:[facility], [address] [facility], Phone - [phone], Director - MDJodry Notes/Report: Cholesterol, Total 269 100-199 mg/dL Triglycerides 73 0-149 mg/dL HDL Cholesterol 96 >39 mg/dL VLDL Cholesterol Corby 12 5-40 mg/dL LDL Chol Calc ([facility]) 161 0-99 mg/dL CBC With Differential/Platel et-[id number] Reviewed date:07/30/2024 07:54:24 AM Interpretation: Performing Lab:[facility], [address] [facility], Phone - [phone], Director - MDJodry Notes/Report: WBC 5.4 3.4-10.8 [...] Immature Grans (Abs) 0.0 0.0-0.1 x10E3/uL TSH+Free [id number] Reviewed date:07/30/2024 07:54:27 AM Interpretation: Performing Lab:[facility], [address] [facility], Phone - [phone], Director - MDJodry Notes/Report: TSH 0.365 0.450-4.500 uIU/mL T4,Free([facility]) 1.20 0.82-1.77 ng/dL Lipid Panel-[id number] Reviewed date:07/30/2024 03:17:56 PM Interpretation: Performing Lab:[facility], [address] [place] [address], [place], Phone - [phone], Director - MDJodry Notes/Report: Cholesterol, Total 266 100-199 mg/dL Triglycerides 102 0-149 mg/dL HDL Cholesterol 82 >39 mg/dL VLDL Cholesterol Corby 17 5-40 mg/dL LDL Chol Calc ([facility]) 167 0-99 mg/dL Comp. Metabolic Panel (14)-3 23545 Reviewed date:07/30/2024 07:54:38 AM Interpretation: Performing Lab:[facility], [address] [facility], Phone - [phone], Director - MDJodry Notes/Report: Glucose 92 70-99 [...] Interpretation: Performing Lab: Notes/Report: Note See Note [facility], a member of [facility] Patient Name: MARÍA OLSON Date of : 1965 Reason for Exam: OTHER Exam Date: 11/18/2024 [id number] EST Report Status: Final Ordering Provider: IKER [...] to the prior neck CTA. Telerad TL ([id number]) -------- FINAL REPOR T -------- Dictated By: Dayami Walker i Dictated Date: 11/19/2024 13:40 ET Assigned Physician: Dayami Diehl Reviewed and Electronically Signed By: Dayami Diehl Signed Date: 025 13:45 ET Workstation ID: [id number] Transcribed By: Self Edit Transcribed Date: 11/19/2024 13:40 ET Reason For Referral Reason Evaluation and manag ement - Dr New Diagnosis 1 Sprain of ribs, init ial encounter (S23.41XA) Referral Organization [facility] Referring Provider First Name MCKEON Referring Provider Last Name [facility] Referring Provider Speciality Internal edicine Referred Provider Specialty Physical Med icine General Notes Referral faxed to Raoul ramez Physical Medicine - Office will call patient for scheduling.Bk Latraya 08/21/2024 04:24:37 PM > Referral Priority Routine Reason Evaluation and manag ement Diagnosis 1 Sprain of ribs, init ial encounter (S23.41XA) Referral Organization [facility] Referring Provider First Name LINDA Referring Provider Last Name [facility] Referring Provider Speciality Internal edicine Referred Provider Specialty Physical Med icine and Rehabilitation General Notes Referral sent to [facility] - Office will call patient for scheduling., Leah Bourgeois 08/27/2024 11:24:16 AM > Referral Priority Routine Reason Evaluation and manag ement Diagnosis 1 Sprain of ribs, init ial encounter (S23.41XA) Referral Organization [facility] Referring Provider First Name LINDA Referring Provider Last Name [facility] Referring Provider Speciality Internal edicine Referred Provider Specialty Pulmonology General Notes Referral sent to [facility] - Office will call patient for scheduling.Bk Latraya 08/27/2024 04:11:52 PM > Referral Priority Routine Reason Please evaluate and treat Diagnosis 1 Spondylolisthesis, l umbar region (M43.16) Referral Organization [facility] Referring Provider First Name Hugo Referring Provider Last Name Sherlyn Referred Provider Specialty Orthopedic S urgery General Notes Referral faxed to Dr Clive Ross per patient's request at [phone]., Adelita Cerrato 10/03/2024 11:16:33 AM > Referral Priority Routine Medications Medication SIG (Take, Route, Frequency, Duration) Notes Start Date End Date Status Ativan 0.5 MG 1 tablet Orally Once a day; Duration: 7 days As needed 09/09/2024 Active Amoxicillin-Pot Clavulanate 875-125 MG 1 tablet Orally every 12 hrs; Duration: 7 days 07/29/2024 Not-Taking Baclofen 5 MG 1 tablet with food o r milk Orally twice a day; Duration: 30 days 09/24/2024 Active Cetirizine HCl 10 MG 1 tablet Orally Onc e a day Active rifAMPin 300 MG take 2 caps Orally daily Not-Taking tiZANidine HCl 4 MG 1 tablet at bedtime as needed Orally Once a day; Duration: 20 days 08/21/2024 Active Meloxicam 15 MG 1 tablet Orally Once a day; Duration: 30 days 08/21/2024 Not-Taking Cyclobenzaprine HCl ER 15 MG 1 capsule as needed Orally Once a day; Duration: 30 days Not-Taking Immunizations Vaccine Route Administration [...] W/U Status Risk Notes Problem Autoimmune thyroiditis (02974830) Autoimmune thyroiditis (E06.3) Active confirmed Problem Vitamin deficiency (33001560) Vitamin deficiency, unspecified (E56.9) Active confirmed Problem Mixed hyperlipidemia (705655161) Mixed hyperlipidemia (E78.2) Active confirmed Problem Tobacco user (062513874) Nicotine dependence, cigarettes, uncomplicated (F17.210) Active confirmed Problem Generalized anxiety disorder (70834300) Generalized anxiety disorder (F41.1) Active confirmed Problem Chronic sinusitis (99090162) Chronic sinusitis, unspecified (J32.9) Active confirmed Problem Rheumatoid arthritis (04310747) Other rheumatoid arthritis with rheumatoid factor of unspecified site (M05.80) Active confirmed Problem Acquired spondylolisthesis (078442725) Spondylolisthesis , lumbar region (M43.16) Active confirmed Problem Solitary sacroiliitis (574443663) Sacroiliitis, not elsewhere classified (M46.1) Active confirmed Problem Solitary pulmonary nodule (545219271) Solitary pulmonary nodule (R91.1) Active confirmed Vital Signs Heart Rate 75 /min 09/24/2024 Temperature 97.4 degrees Fahrenheit 09/24/2024 Oximetry 98 % 09/24/2024 Blood pressure diastolic 76 mm Hg 09/24/2024 Height 5'4 in 09/24/2024 Blood pressure systolic 130 mm Hg 09/24/2024 Weight 164 lbs 09/24/2024 BMI 28.15 kg/m2 09/24/2024 Encounters Encounter Location Date Provider Diagnosis [address] [place] [address] 07/29/2024 LINDA KHAN Other rheumatoid arthritis with rheumatoid factor of unspecified site M05.80 ; Latent tuberculosis Z22.7 ; Personal history of COVID-19 Z86.16 ; Generalized anxiety disorder F41.1 ; Nicotine dependence, cigarettes, uncomplicated F17.210 ; Tobacco abuse counseling Z71.6 ; Solitary pulmonary nodule R91.1 ; Autoimmune thyroiditis E06.3 and Acute sinusitis, unspecified J01.[address] [place] [address] 08/16/2024 Ghadeer Mazloum Bilateral temporomandibular joint disorder, unspecified M26.603 ; Chronic sinusitis, unspecified J32.9 and Mixed hyperlipidemia E78.[address] [place] [address] 08/21/2024 LINDA KHAN Sprain of ribs, init ial encounter S23.41XA [address] [place] [address] 09/24/2024 Ghadeer Mazloum Intercostal pain R07 .82 and Sacroiliitis, not elsewhere classified M46.1 [facility] [address] [facility] [address] [place] [address] 07/16/2024 [facility] [address] [place] [address] 07/29/2024 [facility] [address] [place] [address] 07/30[facility]20[facility] Mixed hyperlipidemia E78.2 [facility] [address] [place] [address] 08/07/2024 [facility] [address] [place] [address] 08/19/2024 [facility] [address] [place] [address] 08/20/2024 [facility] [address] [place] [address] 08/21/2024 MCKEON GUL Sprain of ribs, init ial encounter S23.41[facility] [address] [place] [address] 08/28/2024 [facility] [address] [place] [address] 09/02/2024 [facility] [address] [place] [address] 09/04/2024 MCKEON GUL Left upper quadrant pain R10.12 and Sprain of ribs, initial encounter S23.41[facility] [address] [place] [address] 09/16/2024 MCKEON GUL Left upper quadrant pain R10.12 [facility] [address] [place] [address] 10/31/2024 [facility] [address] [place] [address] 07/31/2024 MCKEON GUL Weakness R53.1 and L eft upper quadrant pain R10.12 [facility] [address] [place] [address] 08/14/2024 [facility] [address] [place] [address] 08/20/2024 [facility] [address] [place] [address] 08/20/2024 [facility] [address] [place] [address] 08/20/2024 [facility] [address] [place] [address] 08/22/2024 [facility] [address] [place] [address] 08/22/2024 [facility] [address] [place] [address] 08/22/2024 [facility] [address] [place] [address] 08/22/2024 [facility] [address] [place] [address] 08/22/2024 [facility] [address] [place] [address] 08/23/2024 [facility] [address] [place] [address] 08/23/2024 [facility] [address] [place] [address] 08/23/2024 [facility] [address] [facility] [place] [address] 08/23/2024 MCKEON GUL [facility] [address] [facility] [place] [address] 08/23/2024 MCKEON GUL [facility] [address] [facility] [place] [address] 08/26/2024 MCKEON GUL [facility] [address] [facility] [place] [address] 08/26/2024 MCKEON GUL [facility] [address] [facility] [place] [address] 08/27/2024 [facility] [address] [facility] [place] [address] 08/27/2024 [facility] [address] [facility] [place] [address] 08/27/2024 [facility] [address] [facility] [place] [address] 08/27/2024 MCKEON GUL [facility] [address] [facility] [place] [address] 08/28/2024 [facility] [address] [facility] [place] [address] 08/28/2024 [facility] [address] [facility] [place] [address] 08/28/2024 MCKEON GUL [facility] [address] [facility] [place] [address] 08/28/2024 [facility] [address] [facility] [place] [address] 08/28/2024 MCKEON GUL [facility] [address] [facility] [place] [address] 08/28/2024 [facility] [address] [place] [address] 08/28/2024 [facility] [address] [place] [address] 08/28/2024 [facility] [address] [place] [address] 08/28/2024 [facility] [address] [place] [address] 08/28/2024 [facility] [address] [place] [address] 08/28/2024 [facility] [address] [place] [address] 08/30/2024 [facility] [address] [place] [address] 09/02/2024 MCKEON [facility] Left upper quadrant pain R10.12 [facility] [address] [place] [address] 09/03/2024 [facility] [address] [place] [address] 09/04/2024 MCKEON [facility] Vitamin deficiency, unspecified E56.9 [facility] [address] [place] [address] 09/04/2024 MCKEON [facility] Encounter for screen ing mammogram for malignant neoplasm of breast Z12.31 [facility] [address] [place] [address] 09/05/2024 [facility] [address] [place] [address] 09/06/2024 [facility] [address] [place] [address] 09/09/2024 [facility] [address] [place] [address] 09/11/2024 [facility] [address] [place] [address] 09/17/2024 [facility] [address] [place] [address] 09/17/2024 [facility] [address] [place] [address] 09/17/2024 [facility] [address] [place] [address] 09/18/2024 [facility] [address] [facility] [place] [address] 09/19/2024 [facility] [address] [place] [address] 09/19/2024 [facility] [address] [place] [address] 09/25/2024 [facility] [address] [place] [address] 09/26/2024 [facility] [address] [facility] [place] [address] 09/30/2024 [facility] [address] [facility] [place] [address] 10/01/2024 [facility] [address] [facility] [place] [address] 10/01/2024 [facility] [address] [place] [address] 10/07/2024 [facility] [address] [place] [address] 10/07/2024 [facility] [address] [facility] [place] [address] 10/10/2024 MCKEON GUL [facility] [address] [place] [address] 10/21/2024 Kalaubrey Olguindes Rib pain on right si de R07.81 [facility] [address] [facility] [address] [place] [address] 10/24/2024 Hugo Mendezoctaviano Assessments Encounter Date Diagnosis (ICD Code) Assessment Notes Treatment Notes Treatment Clinical Notes Section Notes 07/29/2024 Other rheumatoid arthritis with rheumatoid factor of unspecified site (ICD-10 - M05.80) María is a 59-year-old lady with rheumatoid arthritis, generalized anxiety disorder here to establish care. Plan is as follows: Rheumatoid arthritis. She sees Dr. Bang [place] [facility] 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 Generalized anxiety disorder. Mood is stable [...] is asymptomatic Eye screening. She sees her lacquer maker Dr. Leonardo regularly. Dental screening. She sees dentist regularly. Breast cancer screening. She is up-to-date on her mammogram. Female screening. She follows up with her employee development director for breast and pelvic exams. Colon cancer screening. She had her colonoscopy done in 2022 and is on 03-yeui-aybtl. Immunizations. She is up-to-date on her COVID and influenza vaccinations. Screening blood work before next appointment. General health concerns discussed with patient. Scribe services used to formulate this note under HIPAA compliance and under [place] law mandated for scribe services. Patient aware [...] Rheumatoid arthritis. She sees Dr. Bang at [facility]. 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 Generalized anxiety disorder. Mood is stable [...] is asymptomatic Eye screening. She sees her lacquer maker Dr. Leonardo regularly. Dental screening. She sees dentist regularly. Breast cancer screening. She is up-to-date on her mammogram. Female screening. She follows up with her employee development director for breast and pelvic exams. Colon cancer screening. She had her colonoscopy done in 2022 and is on [id number]-xhoal. Immunizations. She is up-to-date on her COVID and influenza vaccinations. Screening blood work before next appointment. General health concerns discussed with patient. [employer]ribe services used to formulate this note under HIPAA compliance and under [place] law mandated for scribe services. Patient aware [...] Rheumatoid arthritis. She sees Dr. Bang at [facility]. 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 Generalized anxiety disorder. Mood is stable [...] is asymptomatic Eye screening. She sees her lacquer maker Dr. Leonardo regularly. Dental screening. She sees dentist regularly. Breast cancer screening. She is up-to-date on her mammogram. Female screening. She follows up with her employee development director for breast and pelvic exams. Colon cancer screening. She had her colonoscopy done in 2022 and is on 34-bmmy-nsozs. Immunizations. She is up-to-date on her COVID and influenza vaccinations. Screening blood work before next appointment. General health concerns discussed with patient. Scribe services used to formulate this note under HIPAA compliance and under [place] law mandated for scribe services. Patient aware [...] Rheumatoid arthritis. She sees Dr. Bang at [facility]. 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 Generalized anxiety disorder. Mood is stable [...] is asymptomatic Eye screening. She sees her lacquer maker Dr. Leonardo regularly. Dental screening. She sees dentist regularly. Breast cancer screening. She is up-to-date on her mammogram. Female screening. She follows up with her employee development director for breast and pelvic exams. Colon cancer screening. She had her colonoscopy done in 2022 and is on 70-vhky-oyysw. Immunizations. She is up-to-date on her COVID and influenza vaccinations. Screening blood work before next appointment. General health concerns discussed with patient. Scribe services used to formulate this note under HIPAA compliance and under [place] law mandated for scribe services. Patient aware [...] Rheumatoid arthritis. She sees Dr. Bang at [facility]. 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 Generalized anxiety disorder. Mood is stable [...] is asymptomatic Eye screening. She sees her lacquer maker Dr. Leonardo regularly. Dental screening. She sees dentist regularly. Breast cancer screening. She is up-to-date on her mammogram. Female screening. She follows up with her employee development director for breast and pelvic exams. Colon cancer screening. She had her colonoscopy done in 2022 and is on 02-vqdf-uckhc. Immunizations. She is up-to-date on her COVID and influenza vaccinations. Screening blood work before next appointment. General health concerns discussed with patient. Scribe services used to formulate this note under HIPAA compliance and under [place] law mandated for scribe services. Patient aware [...] Rheumatoid arthritis. She sees Dr. Bang at [facility]. 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 Generalized anxiety disorder. Mood is stable [...] is asymptomatic Eye screening. She sees her lacquer maker Dr. Leonardo regularly. Dental screening. She sees dentist regularly. Breast cancer screening. She is up-to-date on her mammogram. Female screening. She follows up with her employee development director for breast and pelvic exams. Colon cancer screening. She had her colonoscopy done in 2022 and is on [id number]-cfsxd. Immunizations. She is up-to-date on her COVID and influenza vaccinations. Screening blood work before next appointment. General health concerns discussed with patient. Scribe services used to formulate this note under HIPAA compliance and under [place] law mandated for scribe services. Patient aware [...] Rheumatoid arthritis. She sees Dr. Bang at [facility]. 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 Generalized anxiety disorder. Mood is stable [...] is asymptomatic Eye screening. She sees her lacquer maker Dr. Leonardo regularly. Dental screening. She sees dentist regularly. Breast cancer screening. She is up-to-date on her mammogram. Female screening. She follows up with her employee development director for breast and pelvic exams. Colon cancer screening. She had her colonoscopy done in 2022 and is on [id number]. Immunizations. She is up-to-date on her COVID and influenza vaccinations. Screening blood work before next appointment. General health concerns discussed with patient. Scribe services used to formulate this note under HIPAA compliance and under [place] law mandated for scribe services. Patient aware [...] Rheumatoid arthritis. [place]. Bang [place] [facility] 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 Generalized anxiety disorder. Mood is stable [...] is asymptomatic Eye screening. She sees her lacquer maker Dr. Leonardo regularly. Dental screening. She sees dentist regularly. Breast cancer screening. She is up-to-date on her mammogram. Female screening. She follows up with her employee development director for breast and pelvic exams. Colon cancer screening. She had her colonoscopy done in 2022 and is on [id number]. Immunizations. She is up-to-date on her COVID and influenza vaccinations. Screening blood work before next appointment. General health concerns discussed with patient. Scribe services used to formulate this note under HIPAA compliance and under [place] law mandated for scribe services. Patient aware [...] Rheumatoid arthritis. She sees Dr. Bang at [facility] 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 Generalized anxiety disorder. Mood is stable [...] is asymptomatic Eye screening. She sees her lacquer maker Dr. Leonardo regularly. Dental screening. She sees dentist regularly. Breast cancer screening. She is up-to-date on her mammogram. Female screening. She follows up with her employee development director for breast and pelvic exams. Colon cancer screening. She had her colonoscopy done in 2022 and is on [id number]. Immunizations. She is up-to-date on her COVID and influenza vaccinations. Screening blood work before next appointment. General health concerns discussed with patient. Scribe services used to formulate this note under HIPAA compliance and under [place] law mandated for scribe services. Patient aware [...] Insured Coverage Start Date Coverage End Date [facility] [address] [address] [place] [phone] [id number] MARÍA OLSON Self - patient is the insured 0 Medical (General) History Medical History History ICD Code TB treated by ID in [facility] RA treated by DR Bang at [facility] eye disease and see Dr Leonardo generalized anxiety disorder skin sensitivity Surgical History Surgery Date(Month/Year) carpal tunnel strabismus repair Gallbladder removed hernia repair
[2025-05-14 18:08] LABS: Baso%MD 0.6 %; Eos%MD 3.4 %; Hematocrit 40.3 % (37.0-47.0); Hemoglobin 13.6 g/dl (12.0-16.0); IG%MD 0.4 %; Lymph%MD 30.3 %; Mean Corpuscular HGB Conc 33.7 g/dl (31.0-35.0); Mean Corpuscular Hemoglobin 33.5 pg (27.0-33.0); Mean Corpuscular Volume 99.3 fL (80.0-98.0); Mono%MD 8.5 %; NRBC Abs Auto 0.000 X10*3/uL (0.0-0.012); NRBC Pct Auto 0.0 /100WBC (0.0-0.2); Neut%MD 56.8 %; Platelet Count 326 X10*3/uL (160-400); Red Blood Count 4.06 X10*6/uL (4.20-5.50); White Blood Count 7.3 X10*3/uL (4.8-10.8)
[2025-05-14 18:10] LABS: Alanine Aminotransferase 24 U/L (0-31); Aspartate Amino Transferase 28 U/L (5-31); Estimated Glomerular Filt Rate > 60
[2025-05-14 20:56] LABS: Band Neutrophils Percent 0 % (3-5); Eosinophils Absolute Manual 0.1 X10*3/uL (0.0-0.4); Eosinophils Percent Manual 2 % (0-4); Lymphocytes Absolute Manual 3.2 X10*3/uL (1.2-4.9); Lymphocytes Percent Manual 44 % (20-40); Monocytes Absolute Manual 0.5 X10*3/uL (0.1-1.2); Monocytes Percent Manual 7 % (2-11); Neutrophils Absolute Manual 3.4 X10*3/uL (2.0-8.3); Neutrophils Percent Manual 47 % (45-73)
[2025-05-14 20:58] LABS: RBC Morphology NORMAL
== END 2025-05-14 09:57 | disposition home or self-care (01) ==
LOC: HO.HKASLDS 09:56
PROVIDERS: Visit Provider Internal Medicine Rheumatology
DX: M05.79 Rheumatoid arthritis with rheumatoid factor of multiple sites without organ or systems involvement (principal); R07.89 Other chest pain; M25.531 Pain in right wrist; Z79.899 Other long term (current) drug therapy
CPT/HCPCS: 36415; 82565; 84450; 84460; 85007; 85027; 85652; 86140

== ENCOUNTER 2025-07-03 09:42 | Outpatient (AMB) | payer OTHER, SELFPAY ==
--- OUTSIDE RECORDS SUMMARY | 2024-08-06 08:23 | XMS_ITS | Encounter Summary ---
Author Organization [facility] Address [address] [place] [address] Care Team Providers Care Welding Machine Operator Plasma Arc Name Role Phone Unavailable Primary Care Provider Unavailabl e Encounter Details Date Type Department Care Team (Late st Contact Info) Description 08/06/2024 8:23 AM EDT Hospital Encounter TH HISTORIC ENCOUNTERS EASTERN CONVERSION ONLY Tutu Trivedi MD [address] [place] [address] Social History Tobacco Use Types Packs/Day Years Used Date Smoking Tobacco: Every Day Cigarettes 0.5 48.7 Started: 1974 Smokeless Tobacco: Never Alcohol Use [...] Safety Answer Date Record ed Physical Abuse 06/05/2025 Verbal Abuse 06/05/2025 Comments No Sex and Gender Information Value [...] Upcoming Encounters Date Type Department Care Team (Latest Contact Info) Description 07/08/2025 3:15 PM EDT Consult Orthopedic Surgery - [address] [place] [phone] Bessy Mesa MD [address] [place] [phone] 07/16/2025 2:00 PM EDT Hospital Encounter 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
--- OUTSIDE RECORDS SUMMARY | 2025-03-06 06:00 | XMS_ITS ---
Author Organization [facility] Address [address] [facility] [address] [place] [address] Care Team Providers Care Form Maker Name Role Phone IKER ROBLERO PA-C Primary Care Provider Latonya Ramirez Unavailable [phone] Allergies Allergen (clinical drug ingredient) Drug/Non Drug [...] Gabapentin 100 MG TAKE 1 CAPSULE BY [facility] 3 TIMES A DAY Oral; Duration: 30 [...] 6-10 Encounters Encounter Location Date Provider Diagnosis [address] [place] [address] 03/06/2025 Latonya Lozano Plan Of Treatment No Information Progress Notes * DAWSON OLSONENDOB:1965 (60 yo F)Acc No.[id number]:03/06/2025 Patient: MARCUS RODRIGUEZ Appointment Provider: Shannon Lozano M.D. :1965 A ge:59 Y S ex:Female Date:03/06/2025 Address:[address] [place], [place] [phone] Pcp:IKER ROBLERO PA-C Subjective: * Chief Complaints: [...] on cytologic smear of cervix (ASC-US). * Education Professor History: G ravida/ Para 2 /2. S exual activity n ot currently sexually active. L ast Pap Smear: ASCUS, POS HRHPV (Neg 16, 18/45), 03/28/22 LGSIL, POS HRHPV (neg 16, 18/45), 11/21/17 NEG HRHPV, 2011. M ammogram: Breast Tissue is Almost Entirely Fatty, , 02/27/19 < 50% density, 07/26/2017 normal, 07/2016 with follow up Lt Diagnostic 07/09/2016 Bx recommended. A bnormal Pap Smear: [place] Negative, 06/06/22 [place] Negative, 03/2022 LGSIL, + HRHPV. L MP [...] Electronic signature of Pato Lozano MD on 07/03/2025 at 10:48 AM EDT Sign off status: Pending * Appointment Provider: Shannon Lozano M.D. Date: 0 03/06/2025 Generated for Renay bear/Hilton/Lambertoitting on: 0 07/03/2025 10:48 AM EDT
--- OUTSIDE RECORDS SUMMARY | 2025-06-30 09:24 | XMS_ITS ---
Author Organization [facility] Address [address] [place] [address] Care Team Providers Care Public Works Director Name Role Phone IKER ROBLERO PA-C Primary Care Provider Malav Mirella Pandali Unavailable [phone] Results Component Value Reference Range Notes Urinalysis, Complete-[id number] Reviewed date:07/03/2025 07:42:16 AM Interpretation: Performing Lab:[facility], [address] [place] [address], Phone - [phone], Director - Elsa Notes/Report: Clinical Information:SRC:UC Clinical Information:SRC:UC Specific [place] 1.013 1.005-1.030 pH 6.5 5.0-7.5 Urine-Color Yellow Yellow Appearance Clear Clear WBC Esterase Negative Negative Protein Negative Negative/Trace Glucose Negative Negative Ketones Negative Negative Occult Blood Negative Negative Bilirubin Negative Negative Urobilinogen,Semi-Qn 0.2 0.2-1.0 mg/dL Nitrite, Urine Negative Negative Microscopic Examination Micr oscopic follows if indicated. Microscopic Examination See below: Micr oscopic was indicated and was performed. WBC None seen 0 - 5 /hpf RBC None seen 0 - 2 /hpf Epithelial Cells (non renal) None seen 0 - 10 /hpf Casts None seen None seen /lpf Bacteria None seen None seen/Few Urine Culture, Routine-[id number] Reviewed date:07/03/2025 07:42:29 AM Interpretation: Performing Lab:[facility], [address] , [place], Phone - [phone], Director - Elsa Notes/Report: Clinical Information:SRC:UC Clinical Information:SRC:UC Urine Culture, Routine Final report Result 1 Mixed urogenital ramone 25,000-50,000 colony forming units per mL PDF Report Reviewed date:07/03/2025 07:41:07 AM Interpretation: Performing Lab:[facility], [address], [place], Phone - [phone], Director - Elsa Notes/Report: Clinical Information:SRC:UC REASON FOR VISIT THINKS UTI Encounters Encounter Location Date Provider Diagnosis [facility] [address] [place] [address] 06/30/2025 Latonya Lozano Dysuria R30.0 Assessments Encounter Date Diagnosis (ICD Code) Assessment Notes Treatment Notes Treatment Clinical Notes Section Notes 06/30/2025 Dysuria (ICD-10 - R30.0) Plan Of Treatment No Information Progress Notes * MIS OLSONOB:1965 (60 yo F)Acc No.[id number]:06/30/2025 Patient: MARCUS RODRIGUEZ :1965 A ge:60 Y S ex:Female Address:[address] [place] [address], [place], [place], [place] [address] Subjective: * Chief Complaints: * T HINKS UTI * Medical History: * Surgical History: * Hospitalization/Major Diagno stic Procedure: * Medications: Objective: * Vitals: * Physical Examination: Assessment: * Assessment: 1. D ysuria - R30.0 Plan: * Treatment: Value Reference Range S pecific [place] 1.013 1.005-1.030 - * p H 6.5 5.0-7.5 - * U rine-Color Yellow Yellow - * A ppearance Clear Clear - * W BC Esterase Negative Negative - * P rotein Negative Negative/Trace - * G lucose Negative Negative - * K etones Negative Negative - * O ccult Blood Negative Negative - * B ilirubin Negative Negative - * U robilinogen,Semi-Qn 0.2 0.2-1.0 - mg/dL * N itrite, Urine Negative Negative - * W BC None seen 0 - 5 - /hpf * R BC None seen 0 - 2 - /hpf * E pithelial Cells (non renal) None seen 0 - 10 - /hp f * C asts None seen None seen - /lpf * B acteria None seen None seen/Few - * M icroscopic Examination See below: - ?LAB: Urine Culture, Routine-[id number] (Collection Date & Time - 07/01/2025 04:45 PM)* Value Reference Range U rine Culture, Routine Final report - * Labs: * L ab: PDF Report (Collection Date & Time - 07/01/2025 04:45 PM) * Procedure Codes: * * Date:
--- OUTSIDE RECORDS SUMMARY | 2025-07-03 04:20 | XMS_ITS ---
Author Organization [facility] Address [address] [place] [address] Care Team Providers Care Machine Clipper Name Role Phone IKER ROBLERO PA-C Primary Care Provider Latonya Ramirez Unavailable [phone] Allergies Allergen (clinical drug ingredient) Drug/Non Drug Allergy documented on EMR Reaction Allergy Type Onset Date Status erythromycin ERYTHROMYCIN Skin Rash Drug Allergy A ctive REASON FOR VISIT UTI/Yeast Starting, Submitted Urine Sample 06/30/25 Medications Medication SIG (Take, Route, Frequency, Duration) Notes Start Date End Date Status Escitalopram Oxalate 10 MG Oral; Duration: 30 Days Active Prometrium 100 MG 1 capsule at bedtime Orally Once a day; Duration: 90 days 12/09/2024 Active Estradiol 0.0375 MG/24HR 1 patch to skin Transdermal Two times a Week; Duration: 90 days 12/09/2024 Active ZyrTEC 10 MG 1 tablet Orally Once a day Active Baclofen 10 MG 1 tablet as needed O rally Once a day Active Vitamin C 500 MG as directed Orally Active Turmeric 500 MG as directed Orally Active Gabapentin 100 MG TAKE 1 CAPSULE BY [facility] 3 TIMES A DAY Oral; Duration: 30 Days Active Vitamin D3 25 MCG (1000 UT) as directed Orally Active Social History Tobacco [...] smoke? 6-10 Vital Signs Height 62 in 07/03/2025 Weight 161 lbs 07/03/2025 BMI 29.44 kg/m2 07/03/2025 Blood pressure systolic 128 mm Hg 07/03/20 Blood pressure diastolic 84 mm Hg 025 Temperature 97.3 degrees Fahrenheit 07/03/20 25 Encounters Encounter Location Date Provider Diagnosis [address] [place] [address] 07/03/2025 Latonya Lozano Lower abdominal pain , unspecified R10.30 ; Atypical squamous cells of undetermined significance on cytologic smear of vagina (ASC-US) R87.620 ; Cervical high risk human papillomavirus (HPV) DNA test positive R87.810 and Encounter for screening for human papillomavirus (HPV) Z11.51 Assessments Encounter Date Diagnosis (ICD Code) Assessment Notes Treatment Notes Treatment Clinical Notes Section Notes 07/03/2025 Lower abdominal pain, unspecified (ICD-10 - R10.30) DISCUSSED NORMAL VAGINAL EXAM FINDINGS, NO INFLAMMATION. PAINS ARE NOT IN THE VAGINAL CANAL BUT ALONG MONS PUBIS. SUSPECT HER PAINS ARE DUE TO HER VERTEBRAL PROBLEM ALONG THE SACRUM. NERVES MAY BE PINCHED. ADVISED HER TO SEE HER PCP. GET MRI DONE AND SEE NEUROSURGEON IF SHE INDEED HAS SPINAL ISSUES. REFERRED TO DR THOMAS. 07/03/2025 Atypical squamous cells of undetermined significance on cytologic smear of vagina (ASC-US) (ICD-10 - R87.620) DISCUSSED PREVIOUSLY ABNORMAL PAP TEST WITH NEGATIVE COLPOSCOPY. PAP TEST WAS PERFORMED. 07/03/2025 Cervical high risk human papillomavirus (HPV) DNA test positive (ICD-10 - R87.810) DISCUSSED POSITIVE HPV TEST AND ITS SIGNIFICANCE. 07/03/2025 Encounter for screening for human papillomavirus (HPV) (ICD-10 - Z11.51) HPV TYPING WAS ORDERED WITH PAP TEST. Plan Of Treatment Treatment Notes Assessment Notes Lower abdominal pain, unspecified DISCUSSED NORMAL VAGINAL EXAM FINDINGS, NO INFLAMMATION. PAINS ARE NOT IN THE VAGINAL CANAL BUT ALONG MONS PUBIS. SUSPECT HER PAINS ARE DUE TO HER VERTEBRAL PROBLEM ALONG THE SACRUM. NERVES MAY BE PINCHED. ADVISED HER TO SEE HER PCP. GET MRI DONE AND SEE NEUROSURGEON IF SHE INDEED HAS SPINAL ISSUES. REFERRED TO DR THOMAS. Atypical squamous cells of u ndetermined significance on cytologic smear of vagina (ASC-US) DISCUSSED PREVIOUSLY ABNORMAL PAP TEST WITH NEGATIVE COLPOSCOPY. PAP TEST WAS PERFORMED. Cervical high risk human pap illomavirus (HPV) DNA test positive DISCUSSED POSITIVE HPV TEST AND ITS SIGNIFICANCE. Encounter for screening for human papillomavirus (HPV) HPV TYPING WAS ORDERED WITH PAP TEST. Pending Test Test Name Order Date [id number] IGP No Culture 30 Plus 2024 Next Appt Details Follow Up: prn, Reason: Progress Notes * DAWSON OLSONMOONOB:1965 (60 yo F)Acc No.[id number]:07/03/2025 PROGRESS NOTES Patient: MARCUS RODRIGUEZ Appointment Provider: Shannon Lozano M.D. :1965 A ge:60 Y S ex:Female Date:07/03/2025 Address:[address] [place] [address] Pcp:IKER ROBLERO PA-C Subjective: * Chief Complaints: * U TI/Yeast Starting, Submitted Urine Sample 06/30/25 * HPI: N ew/Follow-up Patient Consult: DALE WAS DIAGNOSED TO HAVE H PYLORI INFECTION IN MAY 2025 AND WAS PLACED ON TETRACYCLIN AND FLAGYL FOR ABOUT 3 WEEKS. LATER, SHE HAD A CT SCAN OF THE ABDOMEN AND WAS TOLD SHE HAD ENTERITIS AND WAS PLACED ON ZITHROMAX. SHE NOW C/O PAIN ALONG THE VAGINAL AREA OF 2 WEEKS DURATION. NO VAGINAL DISCHARGE, NO VAGINAL ITCH OR BURNING. ON FURTHER QUESTIONING, THE PAT HAS A HS OFVERTEBRAL ISSUES ALONG THE LOWER BACK AND SACRUM. SHE HAS HAD LOWER BACK PAINS FOR YEARS AND IS SCHEDULED FOR AN MRI. HER LAST PAP TEST IN 2022 SHOWED ASCUS, POSITIVE HPV. COLPOSCOPY WAS NEGATIVE. WE WILL REPEAT HER PAP TEST TODAY. * ROS: g eneral: no c hest pain. n o p alpitations. n o h eadache. n o c ough. n o s hortness of breath. n o f ever. n o u nexplained weight loss. n o n ausea/vomiting. n o c hange in bowel movements. n o blood in stool. g enitourinary complaints y es, P AIN ALONG THE MONS PUBIS AND VAGINA.?no s kin complaints. * Medical History: * Gin Feeder History: G ravida/ Para 2 /2. S exual activity n ot currently sexually active. L ast Pap Smear: ASCUS, POS HRHPV (Neg 16, 18/45), 03/28/22 LGSIL, POS HRHPV (neg 16, 18/45), 11/21/17 NEG HRHPV, 2011. M ammogram: Breast Tissue is Almost Entirely Fatty, , 02/27/19 < 50% density, 07/26/2017 normal, 07/2016 with follow up Lt Diagnostic 07/09/2016 Bx recommended. A bnormal Pap Smear: [place] Negative, ASCUS, positive HRHPV, 06/06/22 [place] Negative, 03/2022 LGSIL, + HRHPV. L MP and menses M mark 01/2017. B irth Control: N one. C olonoscopy 1 , 1997. B one Density: . * OB History: T otal pregnancies 2 . T otal living children 2 . N VD 2 . * Surgical History: C holecystectomy Bilateral Eye Surgery Left Knee/ACL Repair Hernia Repair 07/2018Left Wrist Scapholunate Instability Surgey Colposcopy 07/07/23, 06/06/22Lipoma Removed Upper Right Abdominal Wall Colonoscopy 08/2023 * Hospitalization/Major Diagno stic Procedure: 2 Vaginal Deliveries See Surgical Hx Diverticulitis * Family History: M other: . F ather: . M aternal Grand Mother: Thyroid Cancer. * Social History: T obacco Use: T [...] I nterpretation N egative * Medications: T akingBaclofen 10 MG Tablet 1 tablet as needed [...] BY MOUTH 3 TIMES A DAY Oral Estradiol 0.0375 MG/24HR Patch Twice Weekly 1 patch to skin Transdermal Two times a Week Prometrium 100 MG Capsule 1 capsule at bedtime Orally Once a day Medication List reviewed and reconciled with the [...] BY MOUTH 3 TIMES A DAY Oral Taking Estradiol 0.0375 MG/24HR Patch Twice Weekly 1 patch to skin Transdermal Two times a Week Taking Prometrium 100 MG Capsule 1 capsule at bedtime Orally Once a day Medication List reviewed and reconciled with the patient * Allergies: E RYTHROMYCIN: Skin Rash - Allergyno[Allergies Verified] Objective: * Vitals: H t: 62 in, Wt:161lbs, BMI:29.44Index, BP:128/84mm Hg, Temp:97.3F. * Examination: G eneral Examination: GENERAL APPEARANCE: i n no acute distress, well developed, well nourished. ABDOMEN: n ormal, bowel sounds present, soft, nontender, nondistended. G YN exam: EXTERNAL GENITALIA: N ormal female. No lesions, erythema or discharge. VAGINA: p ink nolasco. No discharge or lesions. No cystocele or rectocele, no inflammation, no discharge. CERVIX: N o cervical motion tenderness, discharge or lesions. UTERUS: n ormal size, shape and consistency, normal mobility, nontender. ADNEXA: n o masses or tenderness bilaterally. ? Assessment: * Assessment: 1. L ower abdominal pain, unspecified - R10.30 2 . A typical squamous cells of undetermined significance on cytologic smear of vagina (ASC-US) - R87.620 3 .?Cervical high risk human papillomavirus (HPV) DNA test positive - R87.810 4 . Encounter for screening for human papillomavirus (HPV) - Z11.51 Plan: * Treatment: 2. A typical squamous cells of undetermined significance on cytologic smear of vagina (ASC-US) Notes: DISCUSSED PREVIOUSLY ABNORMAL PAP TEST WITH NEGATIVE COLPOSCOPY. PAP TEST WAS PERFORMED. 3. C ervical high risk human papillomavirus (HPV) DNA test positive Notes: DISCUSSED POSITIVE HPV TEST AND ITS SIGNIFICANCE. 4. E ncounter for screening for human papillomavirus (HPV) L AB: [id number] IGP No Culture 30 Plus (Collection Date & Time - 07/03/2025 09:21 AM) Notes: HPV TYPING WAS ORDERED WITH PAP TEST.?? * Procedure Codes: * Follow Up: p rn * Images: Billing Information: * Visit Code: * Procedure Codes: * Sign off status: Completed true * Appointment Provider: Shannon Lozano M.D. Date: 0 07/03/2025 Generated for Kareeni chema/Hilton/eTransmitting on: 0 07/03/2025 10:49 AM EDT History and Physical Notes * HPI (History of Present Illness) Category Sub-Category Detail Notes Category Not es New/Follow-up Patient Consult PAT WAS DIAGNOSED TO HAVE H PYLORI INFECTION IN MAY 2025 AND WAS PLACED ON TETRACYCLIN AND FLAGYL FOR ABOUT 3 WEEKS. LATER, SHE HAD A CT SCAN OF THE ABDOMEN AND WAS TOLD SHE HAD ENTERITIS AND WAS PLACED ON ZITHROMAX. SHE NOW C/O PAIN ALONG THE VAGINAL AREA OF 2 WEEKS DURATION. NO VAGINAL DISCHARGE, NO VAGINAL ITCH OR BURNING. ON FURTHER QUESTIONING, THE PAT HAS A HS OFVERTEBRAL ISSUES ALONG THE LOWER BACK AND SACRUM. SHE HAS HAD LOWER BACK PAINS FOR YEARS AND IS SCHEDULED FOR AN MRI. HER LAST PAP TEST IN 2022 SHOWED ASCUS, POSITIVE HPV. COLPOSCOPY WAS NEGATIVE. WE WILL REPEAT HER PAP TEST TODAY. 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 No disch arge or lesions. No cystocele or rectocele, no inflammation, no discharge EXTERNAL GENITALIA: Normal female. No le sions, erythema or discharge UTERUS: normal size, shape a nd consistency, normal mobility, nontender ADNEXA: no masses or tendern ess bilaterally
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
[2025-07-03 09:47] VITALS: BP 100/80; PULSE 78; O2SAT 100; BMI 28.0
--- OUTSIDE RECORDS SUMMARY | 2025-07-03 10:48 | XMS_ITS | Encounter Summary ---
Author Organization [facility] Address [address] [place] [address] [place] [phone] Phone Care Team Providers Care Repairer Evaporator Name Role Phone Vee Allan MD Primary Care Pr ovider Encounter Details Date Type Department Care Team (Late st Contact Info) Description 10/08/2020 Ancillary Orders [facility] - Orthopaedics Outpatient Practice [address], [address], [address] [place] [address] Finn Bone MD [address] [place] [phone] [email or web address] Hand joint pain Social History Tobacco Use Types Packs/Day Years Used Date Smoking Tobacco: Never Assessed Comments Unknown Sex and Gender Information Value Date Recorded Sex Assigned at Female 10/05/2020 9:54 AM EST Legal Sex Female 1:49 PM EDT Gender Identity Female 10/05/2020 9:54 AM EST Sexual Orientation Straight 10/05/2020 9: 54 AM EST documented as of this encounter Plan of Treatment Not on file documented as of this encounter Results * XR WRIST 1 VIEW (RIGHT) (10/08/2020 2:58 PM EST) Anatomical Region Laterality Modality Wrist Right Radiographic Krystyna ging 10/08/2020 3:18 PM EST Impressions 10/08/2020 3:26 PM EST FINDINGS/IMPRESSION: Lateral views of the wrist show no acute fracture. Radiopaque foci projected over the hamate and pisiform bones of the left may represent old trauma or calcific tendinopathy. Narrative 10/08/2020 3:26 PM EST TECHNIQUE: XR WRIST 1 VIEW (RIGHT), XR WRIST 3 OR MORE VIEWS (LEFT) COMPARISON: XR WRIST 3 OR MORE VIEWS (RIGHT) 13:43:11; XR WRIST 3 OR MORE VIEWS (LEFT) 13:43:11 Procedure Note Eduar Junior MD - 10/08/2020 TECHNIQUE: XR WRIST 1 VIEW (RIGHT), XR WRIST 3 OR MORE VIEWS (LEFT) COMPARISON: XR WRIST 3 OR MORE VIEWS (RIGHT) 13:43:11; XRWRIST 3 OR MORE VIEWS (LEFT) 13:43:11 IMPRESSION: FINDINGS/IMPRESSION: Lateral views of the wrist show no acute fracture. Radiopaque fociprojected over the hamate and pisiform bones of the left may represent oldtrauma or calcific tendinopathy. Finn Bone MD IMG XR UPPER EXTREMITY Final Res ult documented in this encounter Visit Diagnoses Diagnosis Hand joint pain Pain in joint, hand Hand joint pain Pain in joint, hand documented in this encounter Care Teams Repairer Evaporator Relationship Specialty Start Date End Date Vee Allan MD [address] [place] [phone] PCP - General Internal Medicine 09/01/20 documented as of this encounter Additional Source Comments The information contained in this document represents components of the legal health record. It is not the complete legal health record.[facility]
--- OUTSIDE RECORDS SUMMARY | 2025-07-03 10:48 | XMS_ITS | Clinical Summary ---
Author Organization [facility] Address [address] [place] [phone] Phone Care Team Providers Care Paper Ruler Name Role Phone Vee Allan MD Primary Care Pr ovider Social History Tobacco Use Types Packs/Day Years Used Date Smoking Tobacco: Never Assessed Education Answer Date Recorded Are you interested in more education? Not on aries e 03/02/2023 Are you concerned about learning? Not on file 03/02/2023 No 03/02/2023 No 03/02/2023 Digital Access Answer Date Recorded No 04/04/2023 No 04/04/2023 Reliable internet access at home? Not on file 04/04/2023 Device with a working camera? Not on file Comments Unknown Sex and Gender Information Value Date Recorded Sex Assigned at Female 10/05/2020 9:54 AM EST Legal Sex Female 1:49 PM EDT Gender Identity Female 10/05/2020 9:54 AM EST Sexual Orientation Straight 10/05/2020 9: 54 AM EST Plan of Treatment Health Maintenance Due Date Last Done Comments LIPID PANEL 1967 DEPRESSION SCREENING 1979 SMOKING Hx and SMOKELESS TOBACCO SCREENING 1980 HEPATITIS C SCREENING 1985 HIV ONE-TIME SCREENING (18-6 5 YEARS) 1985 PAP SMEAR 1988 MAMMOGRAM 2007 COLOGUARD 2012 COLONOSCOPY 2012 COLORECTAL CANCER SCREENING 2012 FIT TEST 2012 FOBT 2012 SIGMOIDOSCOPY 2012 VIRTUAL COLONOSCOPY 2012 PNEUMOCOCCAL VACCINES (50+ years) (1 of 1 - PCV) 2017 ZOSTER VACCINES (1 of 2) 2017 COVID-19 VACCINE (2 - 2023-2 5 season) 2024 03/03/2021 INFLUENZA VACCINE (#1) 2025 0, 08/23/2020 Adult Td,Tdap Booster 01/09/2029 01/09/2019 , 06/01/2015 HEPATITIS A VACCINES Aged Out No long er eligible based on patient's age to complete this topic HIB VACCINES Aged Out No longer eligi ble based on patient's age to complete this topic MENINGOCOCCAL VACCINES (ACWY) Aged Out No longer eligible based on patient's age to complete this topic MENINGOCOCCAL VACCINES (B) Aged Out N o longer eligible based on patient's age to complete this topic Medical Devices Not on file Care Teams Paper Ruler Relationship Specialty Start Date End Date Vee Allan MD [address] [place] [phone] PCP - General Internal Medicine 09/01/20 Additional Source Comments The information contained in this document represents components of the legal health record. It is not the complete legal health record.[facility]
--- OUTSIDE RECORDS SUMMARY | 2025-07-03 10:48 | XMS_ITS ---
Author Name [facility] Organization Unknown History of Medication Use Medication Directions Dispensed Refills Start Date End Date Stat us No medication inform ation recorded active Problems Problem Status Onset Date Problem Type Date of Resoluti on Source Strain of muscle and tendon of unspecified wall of thorax, initial encounter active 2023-11-17 [address] [email or web address] Encounters Encounter Type Encounter Reason Primary Diagnosis Location Date Ambulatory [facility] 06/18/2025 Ambulatory [facility] 03/07/2025 Ambulatory [facility] 01/28/2025 Ambulatory [facility] 01/28/2025 Ambulatory [facility] 09/16/2024 Ambulatory [facility] 03/15/2024 Ambulatory [facility] 11/17/2023 Care Team Organization Name Specialty Phone Email Start Date End Da te [facility] 01/15/2025 [facility] Not Disclosed Primary Care 11/26/2023 [facility] Not Disclosed Primary Care 11/26/2023 05/10/2025 [facility] 024 05/10/2025 [facility] 024 11/17/2023
--- OUTSIDE RECORDS SUMMARY | 2025-07-03 10:48 | XMS_ITS | Encounter Summary ---
Author Organization [facility] Address [address] [place] [address] [place] [phone] Phone Care Team Providers Care Thread Cutter Tender Name Role Phone Vee Allan MD Primary Care Pr ovider Encounter Details Date Type Department Care Team (Late st Contact Info) Description 10/08/2020 Ancillary Orders [facility] - Orthopaedics Outpatient Practice [address] [facility], 1st [address], [address] [place] [address] Finn Bone MD [address] [place] [phone] [email or web address] Hand joint pain Social History Tobacco Use [...] of this encounter Results * XR WRIST 3 OR MORE VIEWS (LEFT) (10/08/2020 2:58 PM EST) Anatomical Region Laterality Modality Wrist Left Radiographic Krystyna ging 10/08/2020 3:18 PM EST [...] hand documented in this encounter Care Teams Thread Cutter Tender Relationship Specialty Start Date End Date Vee Allan MD [address] [place] [phone] PCP - General Internal Medicine 09/01/20 documented as of this encounter Additional Source Comments The information contained in this document represents components of the legal health record. It is not the complete legal health record.[facility]
--- OUTSIDE RECORDS SUMMARY | 2025-07-03 10:48 | XMS_ITS | Patient Health Record ---
Author Organization [facility] Address [address] [place] [address] Care Team Providers Care Tube Closing Machine Operator Name Role Phone IKER ROBLERO PA-C Primary Care Provider Unacarol bianca Latonya Lozano Unavailable [phone] Allergies Allergen (clinical drug ingredient) Drug/Non Drug Allergy documented on EMR Reaction Allergy Type Onset Date Status erythromycin ERYTHROMYCIN Skin Rash Drug Allergy A ctive Results Component Value Reference Range Notes PDF Report Reviewed date:07/03/2025 07:41:07 AM Interpretation: Performing Lab:[facility] Phone - [phone], Director - Elsa Notes/Report: Clinical Information:SRC:UC Urinalysis Reviewed date:10/14/2024 01:33:35 PM Interpretation: Performing Lab: Notes/Report: PH 8.0 PROTEIN Neg GLUCOSE Neg BLOOD Neg PDF Report Reviewed date:12/14/2024 02:47:46 PM Interpretation: Performing Lab:[facility], Phone - [phone], Director - Elsa Notes/Report: and Drug Administration. by [employer]. It has not been cleared or approved by the Food was developed and its performance characteristics determined Test(s) 115684-Exh. B1, Whole Blood Urine Culture, Routine-[id number] 7 Reviewed date:07/03/2025 07:42:29 AM Interpretation: Performing Lab:[facility] Phone - [phone], Director - Elsa Notes/Report: Clinical Information:SRC:UC Clinical Information:SRC:UC Urine Culture, Routine Final report Result 1 Mixed urogenital ramone 25,000-50,000 colony forming units per mL Urinalysis, Complete-[id number] Reviewed date:07/03/2025 07:42:16 AM Interpretation: Performing Lab:[facility] [address], Phone - [phone], Director - Elsa Notes/Report: Clinical Information:SRC: Clinical Information:SRC: Specific [place] 1.013 1.005-1.030 pH 6.5 5.0-7.5 Urine-Color Yellow [...] seen /lpf Bacteria None seen None seen/Few Vitamin [id number] Reviewed date:12/14/2024 02:48:01 PM Interpretation: Performing Lab:[facility] [address], Phone - [phone], Director - Elsa Notes/Report: Test(s) 545915-Vyk. B1, Whole Blood was developed and its performance characteristics determined by [facility]. It has not been cleared or approved by the Food and Drug Administration. Vitamin B12 625 145-3159 pg/mL Thyroxine (T4) Free, Direct- [id number] Reviewed date:12/14/2024 02:48:28 PM Interpretation: Performing Lab:[facility] [address], Phone - [phone], Director - Elsa Notes/Report: Test(s) 722926-Out. B1, Whole Blood was developed and its performance characteristics determined by [facility]. It has not been cleared or approved by the Food and Drug Administration. T4,Free(Direct) 1.16 0.82-1.77 ng/dL TSH-[id number] Reviewed date:12/14/2024 02:48:55 PM Interpretation: Performing Lab:[facility] [address], Phone - [phone], Director - Elsa Notes/Report: Test(s) 723114-Peo. B1, Whole Blood was developed and its performance characteristics determined by [facility]. It has not been cleared or approved by the Food and Drug Administration. TSH 0.492 0.450-4.500 uIU/mL Triiodothyronine (T3), Free- 206795 Reviewed date:12/14/2024 02:48:08 PM Interpretation: Performing Lab:[facility] [address], Phone - [phone], Director - Elsa Notes/Report: Test(s) 392936-Yot. B1, Whole Blood was developed and its performance characteristics determined by [facility]. It has not been cleared or approved by the Food and Drug Administration. Triiodothyronine (T3), Free 2.9 2.0-4.4 pg/mL Vitamin D, 21-Yaxieqn-825390 Reviewed date:12/14/2024 02:47:53 PM Interpretation: Performing Lab:[facility] [address], Phone - [phone], Director - Elsa Notes/Report: Test(s) 114741-Vfu. B1, Whole Blood was developed and its performance characteristics determined by [facility]. It has not been cleared or approved by the Food and Drug Administration. Vitamin D, 25-Hydroxy 48.0 30.0-100.0 ng/mL Vitamin D deficiency has been defined by the [place] [employer] and an Endocrine Society practice guideline as a level of serum 25-OH vitamin D less than 20 ng/mL (1,2). The Endocrine Society went on to further define vitamin D insufficiency as a level between 21 and 29 ng/mL (2). 1. IOM ([place] [employer]). 2010. Dietary reference intakes for calcium and D. [place]: The National Academies Press. 2. Angelica MF, Leonel NC, Sheeba MCKENNA, et al. Evaluation, treatment, and prevention of vitamin D deficiency: an Endocrine Society clinical practice guideline. JCEM. 2010; 96(7):1911-30. Vitamin B1 (Thiamine), Blood -611528 Reviewed date:12/14/2024 02:48:18 PM Interpretation: Performing Lab:[facility] [place], [address] [place] [address], [place], Phone - [phone], Director - Elsa Notes/Report: Test(s) 996730-Joc. B1, Whole Blood was developed and its performance characteristics determined by [email or web address]. It has not been cleared or approved by the Food and Drug Administration. Vit. B1, Whole Blood 131.3 66.5-200.0 nmol/L Reason For Referral No Information Medications Medication SIG (Take, Route, Frequency, Duration) Notes Start Date End Date Status Vitamin C 500 MG as directed Orally Active Escitalopram Oxalate 10 MG Oral; Duration: 30 Days Active Turmeric 500 MG as directed Orally Active Gabapentin 100 MG TAKE 1 CAPSULE BY [facility] 3 TIMES A DAY Oral; Duration: 30 Days Active Vitamin D3 25 MCG (1000 UT) as directed Orally Active Prometrium 100 MG 1 capsule at bedtime Orally Once a day; Duration: 90 days 12/09/2024 Active Estradiol 0.0375 MG/24HR 1 patch to skin Transdermal Two times a Week; Duration: 90 days 12/09/2024 Active ZyrTEC 10 MG 1 tablet Orally Once a day Active Baclofen 10 MG 1 tablet as needed O rally Once a day Active Social History Tobacco [...] test positive, high risk on vaginal specimen (610248106500365) Cervical high risk human papillomavirus (HPV) DNA test positive (R87.810) Active confirmed Problem Postmenopausal atrophic vaginitis (54796161) Postmenopausal atrophic vaginitis (N95.2) Active confirmed Problem Cervicovaginal cytology: Low grade squamous intraepithelial lesion (787286283) Low grade squamous intraepithelial lesion on cytologic smear of cervix (LGSIL) (R87.612) Active confirmed Problem Non-toxic single thyroid nodule (606792259) Nontoxic single thyroid nodule (E04.1) Active confirmed Problem Autoimmune thyroiditis (72740967) Autoimmune thyroiditis (E06.3) Active confirmed Problem Anxiety disorder (685010826) Anxiety disorder, unspecified (F41.9) Active confirmed Problem Epidermal cyst (358955108) Epidermal cyst (L72.0) Active confirmed Problem Rheumatoid arthritis (23496912) Rheumatoid arthritis, unspecified (M06.9) Active confirmed Problem Endometrial intraepithelial neoplasia (796922313) 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) Active confirmed Problem Postcoital bleeding (86770214) Postcoital and contact bleeding (N93.0) Active confirmed Problem Unspecified abnormal finding in specimens from female genital organs (R87.9) Active confirmed Problem Menopause (732515915) Menopausal and female climacteric states (N95.1) Active confirmed Problem Anxiety state (218580519) Anxiety state, unspecified (300.00) Active confirmed Major Vital Signs Temperature 97.3 degrees Fahrenheit 07/03/2025 Blood pressure diastolic 84 mm Hg 07/03/2025 Height 62 in 07/03/2025 Blood pressure systolic 128 mm Hg 07/03/2025 Weight 161 lbs 07/03/2025 BMI 29.44 kg/m2 07/03/2025 Encounters Encounter Location Date Provider Diagnosis [facility] [place] [address] [place] [address] 12/05/2024 Latonya Lozano [facility] [place] [address] [place] [address] 02/14/2025 Latonya Lozano [place] [address] [place] [address] 03/06/2025 Latonya Lozano [place] [address] [place] [address] 10/14/2024 Latonya Lozano Encounter for gynecological examination (general) (routine) without abnormal findings Z01.419 ; Encounter for screening mammogram for malignant neoplasm of breast Z12.31 ; Personal history of other diseases of the female genital tract Z87.42 ; Cervical high risk human papillomavirus (HPV) DNA test positive R87.810 and Postmenopausal atrophic vaginitis N95.[address] [address] 12/09/2024 Latonya Lozano Other fatigue R53.83 and Menopausal and female climacteric states N95.[address] [address] 07/03/2025 Latonya Lozano Lower abdominal pain , unspecified R10.30 ; Atypical squamous cells of undetermined significance on cytologic smear of vagina (ASC-US) R87.620 ; Cervical high risk human papillomavirus (HPV) DNA test positive R87.810 and Encounter for screening for human papillomavirus (HPV) Z11.[address] [address] 06/30/2025 Latonya Lozano Dysuria R30.[address] [address] 12/03/2024 Latonya Lozano [facility] [address] [address] 12/12/2024 Latonya Lozano [facility] [address] [address] 01/22/2025 Latonya Lozano [facility] [address] [address] 02/16/2025 Latonya Lozano Assessments Encounter Date Diagnosis (ICD [...] PCP. WE WILL CHECK VIT LEVELS TODAY. 06/30/2025 Dysuria (ICD-10 - R30.0) 07/03/2025 Lower abdominal pain, unspecified (ICD-10 - [...] WITH NEGATIVE COLPOSCOPY. PAP TEST WAS PERFORMED. 12/09/2024 Menopausal and female climacteric states (ICD-10 [...] AND NEEDS TESTOSTERONE THERAPY, WILL REFER TO [facility]. WARNED PAT OF POSSIBLE VAGINAL BLEEDING. CALL IF SHE HAS ANY BLEEDING. 10/14/2024 Encounter for screening mammogram for malignant neoplasm of breast (ICD-10 - Z12.31) REGULAR MAMMOGRAMS AND SBE'S WERE RECOMMENDED. 10/14/2024 Personal history of other diseases of the female genital tract (ICD-10 - Z87.42) DISCUSSED PREVIOUS LSIL AND ASCUS ON PAP TEST WITH POSITIVE HR HPV AND ITS IMPLICATIONS. 07/03/2025 Cervical high risk human papillomavirus (HPV) DNA test positive (ICD-10 - R87.810) DISCUSSED POSITIVE HPV TEST AND ITS SIGNIFICANCE. 07/03/2025 Encounter for screening for human papillomavirus (HPV) (ICD-10 - Z11.51) HPV TYPING WAS ORDERED WITH PAP TEST. 10/14/2024 Cervical high risk human papillomavirus (HPV) [...] Screening 10/14/2024 [facility] Digital Mammo Screening 05/04/2023 [id number] IGP No Culture 30 Plus 2024 Insurance Providers Payer Name Payer Address Payer Phone Subscriber Number Group Number Insured Name Patient Relationship to Insured Coverage Start Date Coverage End Date [facility] [address] [address] [place] [address] [id number] MARCUS OLSON Self - patient is the [...] on cytologic smear of cervix (ASC-US) R87.610 Nontoxic single thyroid nodule E04.1 Surgical History Surgery Date(Month/Year) Cholecystectomy Bilateral Eye Surgery Left Knee/ACL Repair Hernia Repair 07/2018 Left Wrist Scapholunate Instability Surg ey Colposcopy 07/07/23, 06/06/22 Lipoma Removed Upper Right Abdominal Wal l Colonoscopy 08/2023 Hospitalization History Reason Date(Month/Year) Diverticulitis See Surgical Hx 2 Vaginal Deliveries
--- OUTSIDE RECORDS SUMMARY | 2025-07-03 10:49 | XMS_ITS | Clinical Summary ---
Author Organization [facility] Address [address] [place] [address] Phone Care Team Providers Care Territory Sales Professional Name Role Phone Araceli Augustin Primary Care Provider + Allergies Active Allergy Reactions Criticality Noted Date Comments Clindamycin Hives Low 06/01/2015 Erythromycin Hives,Rash Medium 06/01/2015 all mycins Other reaction(s): Hives/Urticaria Other reaction(s): Hives/Urticaria all mycins all mycins Infliximab Other Medium 05/02/2024 Twiching legs, burning scalp, headache Sertraline Rash Medium 05/06/2025 Medications ascorbic acid (VITAMIN C) 250 mg tablet Take 1 tablet (250 mg total) by mouth 1 (one) time each day. Active cholecalcifer ol (VITAMIN D-3) 25 mcg (1,000 unit) tablet Take 1 tablet (1,000 Units total) by mouth 1 (one) time each day. Active clonazePAM (KlonoPIN) 0.5 mg tablet Take 1 tablet (0.5 mg total) by mouth 2 (two) times a day if needed. Active cetirizine (ZyrTEC) 10 mg capsule Take 1 capsule (10 mg total) by mouth 1 (one) time each day if needed (allergies). Active Orencia ClickJect 125 mg/mL injection Inject 1 mL (125 mg total) under the skin 1 (one) time per week. Active nicotine (NICODERM CQ) 21 mg/[address] 1 patch on the skin 1 (one) time each day. 30 each 04/22/20 25 Active gabapentin (NEURONTIN) 300 mg capsule Take 1 capsule (300 mg total) by mouth 3 (three) times a day. 04/30/20 25 Active LORazepam (ATIVAN) 1 mg tablet Take 1 tablet (1 mg total) by mouth every 6 (six) hours if needed for anxiety. 04/17/20 24 Active cloNIDine (CATAPRES) 0.1 mg tablet Take 1 tablet (0.1 mg total) by mouth 2 (two) times a day if needed. 01/07/20 25 Active cyclobenzapri ne (FLEXERIL) 10 mg tablet TAKE 1 TABLET BY MOUTH TWICE A DAY NEEDED FOR PAIN FOR 5 DAYS 05/13/20 25 Active docusate sodium (COLACE) 100 mg capsule 03/25/20 25 Active estradioL (VIVELLE-DOT) 0.0375 mg/24 hr Transdermal; Duration: 84 Days 12/09/19 25 Active methylPREDNIS olone (MEDROL DOSPAK) 4 mg tablet TAKE 6 TABLETS ON DAY 1 DIRECTED ON PACKAGE AND DECREASE BY 1 TAB EACH DAY FOR A TOTAL OF 6 DAYS 04/14/20 25 Active mirtazapine (REMERON) 7.5 mg tablet Take 1 tablet (7.5 mg total) by mouth at bedtime. 01/07/20 25 Active oxyCODONE (ROXICODONE) 5 mg immediate release tablet TAKE 1 TABLET BY MOUTH EVERY 8 HOURS (06,14,22) FOR SEVERE PAIN FOR 7 DAYS. 04/02/20 25 Active Gavilax 17 gram/dose oral powder TAKE 25.5GM ORALLY DAILY FOR 4 DAYS 04/14/20 25 Active traMADoL (ULTRAM) 50 mg tablet 1 tablet as needed for severe pain Orally every 4-6 hours; Duration: 14 days 01/23/20 25 Active venlafaxine HCl (venlafaxine ER) 37.5 mg 24 hr tablet TAKE 1 TABLET BY MOUTH EVERY DAY Oral; Duration: 90 Days Active omeprazole (PriLOSEC) [address] capsule Take 1 capsule (20 mg total) by mouth 1 (one) time each day. Do not crush or chew. 30 each 2 06/09/20 25 11/02/2 025 Active lactulose (CHRONULAC) solution Take 30 mL (20 g total) by mouth 1 (one) time each day. 2700 mL 06/10/20 25 Active celecoxib (CeleBREX) 200 mg capsule Take 1 capsule (200 mg total) by mouth 2 (two) times a day. 60 each 06/21/20 25 Active Journavx 50 mg tablet Take 1 tablet by mouth 2 (two) times a day. Discontinued bisacodyL (DULCOLAX) 5 mg EC tablet Take 2 tablets by mouth right before beginning bowel prep. See instructions provided by the office 2 tablet 05/22/20 25 Discontinued polyethylene glycol (Golytely) 236-22.74-6.7 4 -5.86 gram solution Take 4L by mouth once for one dose. May substitue any PEG. Starting at 2PM the day before your procedure drink 1 8oz glasses at your own pace until you complete half of the gallon. Finish 2nd half of the gallon at 8PM. 4000 mL 05/22/20 25 025 Discontinued ibuprofen (ADVIL,MOTRIN ) 600 mg tablet every 8 hours. 12/03/19 25 025 Discontinued(D uplicate order) lactulose (CHRONULAC) solution Take 30 mL (20 g total) by mouth 1 (one) time each day. 2700 mL 06/09/20 25 025 Discontinued(R eorder) celecoxib (CeleBREX) 200 mg capsule Take 1 capsule (200 mg total) by mouth 1 (one) time each day. 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 Phillips describes increasing issues with her lower back and legs. The lumbar CT from [facility] show degenerative disc disease but not stenosis. Her description of paresthesias and leg shaking raise concerns for stenosis. [facility] did not correlate with cauda equina syndrome. She is now awaiting a lumbar spine MRI at [place]. I be happy to review that once [...] this, is currently seeing 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 [place] at [facility], had injection in the right lower [...] Other specified anxiety disorders 02/09/2021 Rheumatoid arthritis ([facility] V24, [facility] V28) 12/25/2020 Carpal tunnel syndrome 01/23/2020 Overview [...] Encounters Date Type Department Care Team Description 06/26/2025 Telephone Orthopedic Surgery [facility] [address] [facility] [address] [place] [phone] Siria Palumbo 06/25/2025 8:30 AM EDT Ancillary Procedure [facility] [address] [facility] [address] [place] [address] Dyspnea on exertion 06/25/2025 Telephone Orthopedic Surgery [facility] 250 175 [facility] [address] [place] [address] Bessy Mesa MD 06/20/2025 8:00 AM EDT Office Visit Orthopedic Surgery [facility] 175 [facility] [address] [place] [phone] Bessy Mesa MD Osteochondrosis of lunate of left wrist (Primary Dx) 06/20/2025 Telephone Orthopedic Surgery [facility] 250 [address] [facility] [address] [place] [address] Bessy Mesa MD 06/19/2025 Telephone Gastroenterology - [place] [address] [facility] [address] [place] [phone] Gia Lance NP 06/11/2025 Telephone Orthopedic Surgery - [place] [address] [facility] [address] [place] [phone] Nichelle Archibald PA 06/06/2025 Telephone Gastroenterology - [place] [address] [facility] [address] [place] [phone] Gia Lance NP 06/05/2025 11:56 AM EDT Anesthesia Event [facility] Endoscopy [address] [place] [phone] Jewel Wilcox MD 06/05/2025 10:21 AM EDT - 06/05/2025 11:59 PM EDT Hospital Encounter [facility] Endoscopy [address] [place] [phone] Melba Bunn MD Steele, Matthew G, CRNA Zorn, Jamie M, MD Diarrhea, unspecified type; Change in bowel habits Discharge Disposition: Home or Self Care 06/05/2025 Telephone Orthopedic Surgery [facility] [address] [facility] [address] [place] [phone] Nichelle Archibald PA 06/04/2025 1:45 PM EDT Office Visit Orthopedic [facility] 175 [facility] [address] [place] [phone] Nichelle Archibald PA Arthritis of right wrist (Primary Dx) 05/28/2025 4:11 PM EDT - 05/28/2025 11:59 PM EDT Hospital Encounter [facility] CT Scan [address] [place] [phone] Solitary pulmonary nodule Discharge Disposition: Home or Self Care 05/26/2025 Telephone Gastroenterology - [place] [address] 175 [facility] [address] [place] [phone] Gia Lance NP 05/19/2025 Telephone Gastroenterology - [place] [address] [facility] [address] [place] [address] Gia Lance, NICOLE 05/15/2025 11:52 AM EDT - 05/15/2025 1:56 PM EDT Emergency [facility] Emergency [address] [place] [address] Stephanie Nina, Bacterial infection due to H. pylori (Primary Dx) Discharge Disposition: Home or Self Care 05/15/2025 9:05 AM EDT - 05/15/2025 11:59 PM EDT Hospital Encounter [facility] Nuclear Medicine [address] [place] [address] Abdominal pain, chronic, right upper quadrant Discharge Disposition: Home or Self Care 05/15/2025 Telephone Gastroenterology - [place] [address] [address] Gia Lance, NICOLE 05/14/2025 11:51 AM EDT - 05/14/2025 11:59 PM EDT Hospital Encounter [facility] Xray [address] [place] [address] Rheumatoid arthritis with rheumatoid factor of multiple sites without organ or systems involvement (CMS/HCC V24, CMS/HCC V28) Discharge Disposition: Home or Self Care 05/14/2025 Telephone Gastroenterology - [place] [address] [facility] [address] [place] [address] Gia Lance, NICOLE 05/13/2025 Telephone Gastroenterology - [place] [address] [facility] [address] [place] [address] Gia Lance NP 05/12/2025 Telephone Gastroenterology - [place] [address] [facility] [address] [place] [address] Gia Lance NP 05/12/2025 Telephone [facility]astroenterology - [place] [address] [facility] [address] [place] [address] Gia Lance, NICOLE 05/07/2025 1:00 PM EDT Office Visit Orthopedic Surgery - [place] [address] [address] Irma Erickson NP Post-traumatic osteoarthritis of left knee (Primary Dx); Primary osteoarthritis of right knee 05/07/2025 8:40 AM EDT Office Visit G[facility] 175 [facility] 175 [facility] 200 [place] [phone] Gia Lance NP Abdominal pain, chronic, right upper quadrant (Primary Dx); Diarrhea, unspecified type; Change in bowel habits 05/06/2025 9:36 AM EDT - 05/06/2025 11:59 PM EDT Hospital Encounter [facility] Pain Management [address] [place] [phone] Tutu Trivedi MD Radiculopathy, lumbar region Discharge Disposition: Home or Self Care 05/01/2025 1:30 PM EDT Procedure visit Orthopedic Surgery [place] [address] [address] Irma Erickson NP Post-traumatic osteoarthritis of left knee (Primary Dx); Primary osteoarthritis of right knee 04/24/2025 1:30 PM EDT Procedure visit Orthopedic [place] [address] [phone] Irma Erickson NP Post-traumatic osteoarthritis of left knee (Primary Dx); Primary osteoarthritis of right knee 04/19/2025 3:55 PM EDT - 04/22/2025 9:49 AM EDT Hospital Encounter [facility] Urology Unit [address] [place] [phone] Jose Marmolejo MD Maduakor, Emmanuel C, MD Kokosadze, Estate, MD Mohani, Priya, MD Santoyo-Pacheco, Omar D, MD Chronic right-sided thoracic back pain (Primary Dx); Suicidal ideation Discharge Disposition: Home or Self Care 04/05/2025 11:30 AM EDT - 04/05/2025 1:57 PM EDT Emergency [facility] Emergency [address] [place] [address] Shortness of breath (Primary Dx); Rib pain Discharge Disposition: Home or Self Care from Last 3 Months Immunizations Name Administration Dates Next Due Hepatitis B (Cuasbpx-Y-Schrl , Recombivax HB-Adult) 19yo and older 02/21/2022,01/17/2022 [...] 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 [facility] WRIST SURGERY 11/06/2021 - 11/05/2022 Left scapholunate stablization VENTRAL HERNIA REPAIR 03/25/2025 revision, mesh removed CHOLECYSTECTOMY Medical History Medical History Date Comments Anxiety [...] Post-traumatic osteoarthriti s of left knee 10/03/2023 Globus sensation Decreased appetite GERD (gastroesophageal reflux disease) Rock's disease Joint pain Family History Medical History Relation Name Comments Hypertension Father Esophageal canc er, at 73 Other: Hypothyroidism Maternal Grandmother Breast cancer Neg Hx Relation Name Status Comments Father Maternal Grandmother Social History Tobacco Use Types Packs/Day Years Used Date Smoking Tobacco: Every Day Cigarettes 0.5 48.7 Started: 1976 Smokeless Tobacco: Never Tobacco Cessation:Ready to Q uit: Not Asked; Counseling Given: Not Answered Alcohol Use Standard Drinks/Week Comments Yes 21 [...] Sign Reading Time Taken Comments Blood Pressure 134/89 06/25/2025 2:17 PM EDT Pulse 63 06/05/2025 12:44 PM EDT Temperature 36.3 C (97.3 F) 06/05/2025 12:24 PM EDT Respiratory Rate 17 06/05/2025 12:44 PM EDT Oxygen Saturation 98% 06/05/2025 12:44 PM EDT Inhaled Oxygen Concentration - - Weight 73.9 kg (163 lb) 06/25/2025 2:17 PM EDT Height 160 cm (5' 3 ) 06/25/2025 2:17 PM EDT Body Mass Index 28.87 06/25/2025 2:17 PM EDT Plan of Treatment Upcoming Encounters Date Type Department Care Team (Latest Contact Info) Description 07/08/2025 3:15 PM EDT Consult Orthopedic Surgery [facility] 175 [facility] 140 [place] [phone] Bessy Mesa MD [address] [place] [address] 07/16/2025 2:00 PM EDT Hospital Encounter [facility] [place] [address] [place] [phone] Bessy Mesa MD [address] [place] [phone] 07/16/2025 2:00 PM EDT - 07/16/2025 3:30 PM EDT Surgery [facility] [place] [address] [place] [phone] Bessy Mesa MD [address] [place] [address] core decompression of the right distal radius [74765 (CPT )] 07/25/2025 10:45 AM EDT Office Visit Orthopedic Surgery [address] [phone] Nichelle Archibald PA [address] [place] [address] Scheduled Procedures Name Priority Associated Diagnoses Date/Ti me OSTEOTOMY RADIUS 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 (CMS/HCC V24, CMS/HCC V28) 07/16/2025 2:00 PM EDT Health Maintenance Due Date Last Done Comments Zoster Vaccines (1 of 2) 1986 Hepatitis B Vaccines (3 of 3 - 19+ 3-dose series) 07/20/2022 02/21/2022, 01/17/2022 Colorectal Cancer Screening: Stool Based Tests (FOBT/FIT) 10/09/2022 Lung Cancer Screening (Low Dose CT) 10/09/2022 COVID-19 Vaccine ( season) 2024 02/02/2022, 07/05/2021, 06/24/2021, Additional history exists Depression Screening 11/06/2024 Influenza Vaccine (#1) 2025 , 07/28/2023, 09/19/2022, Additional history exists Social Influencers of Health Screening 04/20/2026 04/20/2025 Breast Cancer Screening 02/05/2027 02/06/20 25, 06/05/2023, 02/27/2019, Additional history exists Cervical Cancer Screening: HPV 07/20/2028 07/20/2023 DTaP,Tdap,and Td Vaccines (3 - Td or Tdap) 01/09/2029 01/09/2019, 06/01/2015 Cholesterol Screening (Lipid Panel) 10/28/2029 10/28/2024, 11/09/2023 HIV Screening Completed 05/20/2024 Hepatitis C Screening Completed 05/20/2024, 024 Pneumococcal Vaccine: 50+ Years Completed 11/21/2024 Colorectal Cancer Screening: Colonoscopy Discontinued 06/05/2025, 08/15/2023 HIB Vaccines Aged Out No longer eligi [...] Procedure Name Priority Date/Time Associated Diagnosis Comments TRANSTHORACIC ECHOCARDIOGRAM (TTE) COMPLETE Routine 06/25/2025 9:10 AM EDT Dyspnea on exertion COLONOSCOPY Routine 06/05/2025 12:23 PM EDT Diarrhea, unspecified type Change in bowel habits TISSUE EXAM Routine 06/05/2025 12:19 PM EDT Diarrhea, unspecified type Change in bowel habits CT CHEST WO CONTRAST Routine 05/28/2025 4:27 PM EDT Solitary pulmonary nodule XR RIBS W CHEST 3+ VIEWS RIGHT STAT 05/15/2025 12:13 PM EDT TYPE AND SCREEN STAT 05/15/2025 11:51 AM EDT CBC WITH AUTO DIFFERENTIAL STAT 05/15/2025 11:49 AM EDT COMPREHENSIVE METABOLIC PANEL STAT 05/15/2025 11:49 AM EDT CBC AND DIFFERENTIAL STAT 05/15/2025 11:49 AM EDT NM HEPATOBILIARY SYSTEM IMAGING Routine 05/15/2025 10:53 AM EDT Abdominal pain, chronic, right upper quadrant XR WRIST 3+ VIEWS RIGHT Routine 05/14/20 25 12:16 PM EDT Rheumatoid arthritis with rheumatoid factor of multiple sites without organ or systems involvement (CMS/HCC V24, CMS/HCC V28) XR HAND 3+ VIEWS RIGHT Routine 5 12:16 PM EDT Rheumatoid arthritis with rheumatoid factor of multiple sites without organ or systems involvement (CMS/HCC V24, CMS/HCC V28) HELICOBACTER PYLORI ANTIGEN, STOOL Routine 05/08/2025 11:14 AM EDT Abdominal pain, chronic, right upper quadrant Diarrhea, unspecified type CALPROTECTIN, STOOL Routine 05/08/2025 1 1:07 AM EDT Abdominal pain, chronic, right upper quadrant Diarrhea, unspecified type GASTROINTESTINAL PATHOGENS BY PCR Routine 05/08/2025 11:07 AM EDT Abdominal pain, chronic, right upper quadrant Diarrhea, unspecified type CLOSTRIDIUM DIFFICILE TOXIN Routine 05/08/2025 11:07 AM EDT Abdominal pain, chronic, right upper quadrant Diarrhea, unspecified type NJ ARTHROCENTESIS/ASPIRATI ON/INJECTION MAJOR JOINT/BURSA W/O U/S GUIDANCE Routine 05/07/2025 1:00 PM EDT Post-traumatic osteoarthritis of left knee Primary osteoarthritis of right knee COMPREHENSIVE METABOLIC PANEL Routine 05/05/2025 3:41 PM EDT Screening for diabetes mellitus Other abnormality of red blood cells Spontaneous ecchymoses HEMOGLOBIN A1C Routine 05/05/2025 3:41 PM EDT Screening for diabetes mellitus Other abnormality of red blood cells Spontaneous ecchymoses NJ ARTHROCENTESIS/ASPIRATI ON/INJECTION MAJOR JOINT/BURSA W/O U/S GUIDANCE Routine 05/01/2025 1:30 PM EDT Post-traumatic osteoarthritis of left knee Primary osteoarthritis of right knee NJ ARTHROCENTESIS/ASPIRATI ON/INJECTION MAJOR JOINT/BURSA W/O U/S GUIDANCE Routine 04/24/2025 1:30 PM EDT Post-traumatic osteoarthritis of left knee Primary osteoarthritis of right knee CBC WITH AUTO DIFFERENTIAL Routine 04/20/2025 6:04 AM EDT CBC AND DIFFERENTIAL Routine 04/20/2025 6:04 AM EDT BASIC METABOLIC PANEL Routine 04/20/2025 6:04 AM EDT ECG 12-LEAD Routine 04/19/2025 10:44 PM EDT XR CHEST 2 VIEWS STAT 04/19/2025 6:50 PM EDT CBC WITH AUTO DIFFERENTIAL STAT 04/19/2025 4:24 PM EDT SALICYLATE LEVEL STAT 04/19/2025 4:24 PM EDT ACETAMINOPHEN LEVEL STAT 04/19/2025 4 :24 PM EDT ETHANOL STAT 04/19/2025 4:24 PM EDT COMPREHENSIVE METABOLIC PANEL STAT 04/19/2025 4:24 PM EDT CBC AND DIFFERENTIAL STAT 04/19/2025 4:24 PM EDT METHADONE SCREEN, URINE STAT 04/19/20 4:16 PM EDT PHENCYCLIDINE, URINE STAT 04/19/2025 4:16 PM EDT BUPRENORPHINE SCREEN, URINE STAT 04/19/2025 4:16 PM EDT DRUG ABUSE SCREEN 8A PANEL, URINE STAT 04/19/2025 4:16 PM EDT ECG ANNOTATED 04/06/2025 TROPONIN I HIGH SENSITIVITY STAT 04/05/2025 1:03 PM EDT XR CHEST 2 VIEWS STAT 04/05/2025 12:1 3 PM EDT CBC WITH AUTO DIFFERENTIAL STAT 04/05/2025 12:01 PM EDT TROPONIN I HIGH SENSITIVITY STAT 04/05/2025 12:01 PM EDT B-TYPE NATRIURETIC PEPTIDE STAT 04/05/2025 12:01 PM EDT BASIC METABOLIC PANEL STAT 04/05/2025 12:01 PM EDT CBC AND DIFFERENTIAL STAT 04/05/2025 12:01 PM EDT ECG 12-LEAD STAT 04/05/2025 11:49 AM EDT MG MAMMO DIGITAL SCREENING W SG BILAT Routine 02/05/2025 10:40 AM EDT Encounter for screening mammogram for malignant neoplasm of breast LIPID PANEL WITH REFLEX TO DIRECT LDL Routine 10/28/2024 2:36 PM EST Atrophic arthritis (CMS/HCC V24, CMS/HCC V28) Routine general medical examination at a health care facility Screening for lipoid disorders Screening for diabetes mellitus Screening for thyroid disorder Avitaminosis D HEPATITIS C SCREENING Routine 05/20/2024 HIV SCREENING Routine 05/20/2024 HPV Routine 07/20/2023 from Last 3 Months or Most Recently Relevant to Health Maintenance Results * (ABNORMAL) TRANSTHORACIC ECHOCARDIOGRAM (TTE) COMPLETE (06/25/2025 9:10 AM EDT) Left Atrium Minor Matlock 4.9 cm CV PACS Left Atrium Major Matlock 4.9 cm CV PACS LA Area Sys (A2C) 16 cm2 CV PACS LA Area Sys (A4C) 14 cm2 CV PACS LA Volume (BP) 37 mL CV PACS LA Size 3.5 cm CV PACS RA Area 10.6 cm2 CV PACS RA 2D Volume 24 mL CV PACS AV Mean Gradient 2 mmHg CV PACS AV Mean Gradient 2 mmHg CV PACS Ao VTI 22.8 cm CV PACS AV Peak Yehuda 1.1 m/s CV PACS AV Peak Gradient 5 mmHg CV PACS AV Area Peak Velocity 2.6 cm2 CV PACS Aortic Arch 2.7 cm CV PACS Ascending Aorta 3.5 cm CV PACS Aortic Sinus Valsalva 3.3 cm CV PACS IVC Proximal 1.4 cm CV PACS IVSD 0.9 0.6 - 0.9 cm CV PACS LVIDD 4.9 3.8 - 5.2 cm CV PACS LVIDS 3.2 2.2 - 3.5 cm CV PACS LVOT Diameter 2.1 cm CV PACS LVOT Mean Yehuda 0.5 m/s CV PACS LVOT Mean Grad 1 mmHg CV PACS LVOT Mean Grad 1 mmHg CV PACS LVOT Peak VTI 16.5 cm CV PACS LVOT Peak VTI 16.5 cm CV PACS LVOT Peak Yehuda 0.9 m/s CV PACS LVOT Peak Gradient 3 mmHg CV PACS LVPWD 1.0(A) 0.6 - 0.9 cm CV PACS MV E' Tissue Velocity Lateral 10 cm/s CV PACS MV E' Tissue Velocity Septal 8 cm/s CV PACS LVOT Area 3.5 cm2 CV PACS LVOT Stroke Volume 57 mL CV PACS MV Deceleration Crenshaw 4.1 m/s2 CV PACS E Wave Deceleration Time 185 119 - 242 ms CV PACS MV PHT 55 ms CV PACS MV Peak A Yehuda 0.93 m/s CV PACS MV Peak E Yehuda 0.77 m/s CV PACS MV Mean Gradient 1 mmHg CV PACS MV Mean Gradient 1 mmHg CV PACS MV Mean Gradient 1 mmHg CV PACS MV Mean Gradient 1 mmHg CV PACS MV VTI 26.2 cm CV PACS Mitral Valve Max Velocity 1.0 m/s CV PACS MV Peak Gradient 4 mmHg CV PACS MV Area PHT 4.0 cm2 CV PACS PV Acceleration Time 109 ms CV PACS PV Acceleration Time 99 ms CV PACS PV Acceleration Time 104 ms CV PACS PV Mean Gradient 1 mmHg CV PACS PV VTI 15.8 cm CV PACS PV Peak Velocity 0.8 m/s CV PACS PV Peak Gradient 2 mmHg CV PACS RV Diastolic Basal Dimension 3.5 2.5 - 4.1 cm CV PACS RV S' 10 cm/s CV PACS TAPSE 26 mm CV PACS E/E' Ratio Septal 10 CV PACS E/E' Ratio Averaged 9 CV PACS Relative Wall Thickness ratio 0.41 CV PACS FS 35 % CV PACS LV Mass 2D 164 g CV PACS LVOT flow 173 mL/s CV PACS AV Velocity Ratio 0.82 CV PACS E/A Ratio 0.8 CV PACS E/E' Ratio Lateral 8 CV PACS BSA 1.81 m2 CV PACS LA Volume Index (BP) 21 mL/m2 CV PACS LVIDD Index 2.77 cm/m2 CV PACS LVIDS Index 1.81 cm/m2 CV PACS LV Mass Index 2D 93(A) 44 - 88 g/m2 CV PACS LVOT Stroke Index 32 mL/m2 CV PACS LA Dimension Index 2D 2.0 cm/m2 CV PACS RA 2D Volume Index 14(A) 15 - 27 mL/m2 CV PACS MARK Index (Pk Yehuda) 1.47 cm2/m2 CV PACS Ascending Aorta Index 1.98 cm/m2 CV PACS Est. RA Pressure 3 mmHg CV PACS Anatomical Region Laterality Modality Ultrasound Narrative 06/26/2025 7:04 AM EDT Left ventricle cavity size is normal. Wall thickness is normal. Systolic function is normal with an ejection fraction of 60-65%. There are no regional LV wall motion abnormalities No hemodynamically significant valvular dysfunction There is no prior study available for comparison Left Ventricle Left ventricle cavity size is normal. Wall thickness is normal. Systolic function is normal with an ejection fraction of 60-65%. There are no regional LV wall motion abnormalities. Right Ventricle Right ventricle cavity appears normal. Systolic function is normal. Left Atrium Left atrium cavity size is normal. Right Atrium Right atrium cavity is normal. IVC/SVC Inferior vena cava structure is normal. RA pressures is estimated to be 3 mmHg (IVC diameter <21 mm and decreases >50% during inspiration). Mitral Valve The leaflets are mildly thickened. There is mild annular calcification. There is trace regurgitation. There is no evidence of mitral valve stenosis. Tricuspid Valve Tricuspid valve structure is normal. There is no regurgitation. Cannot assess RVSP. Aortic Valve The aortic valve is trileaflet. The leaflets are mildly thickened. There is trace regurgitation with a centrally directed jet. There is no evidence of aortic valve stenosis. Pulmonic Valve There is no pulmonic valve regurgitation. Ascending Aorta The aorta appears normal in size. Pericardium Pericardium appears normal. There is no pericardial effusion. Study Details Overall the study quality was adequate. Araceli BOOTHE CV ECHO PROCEDURES Final Result * COLONOSCOPY Anesthesia - MAC; [facility] ENDOSCOPY (06/05/2025 12:23 PM EDT) Anatomical Region Laterality Modality Endoscopy 06/05/2025 11:5 7 AM EDT Impressions 06/05/2025 12:27 PM EDT - The examined portion of the ileum was normal. - Dilated in the ascending colon and in the cecum. - Normal mucosa in the entire examined colon. Biopsied. - Diverticulosis in the sigmoid colon. - Internal hemorrhoids. Recommendation: - Await pathology results. - Repeat colonoscopy in 7-10 years for surveillance. - Return to GI clinic as previously scheduled. Narrative 06/05/2025 12:27 PM EDT [facility] GI Patient Name: María Phillips Procedure Date: 06/05/2025 11:57 AM Date of : 1965 Age: 59 Gender: Female Note Status: Finalized Attending MD: Melba Bunn MD, Procedure Date No Time: 06/05/2025 Procedure: Colonoscopy Indications: Clinically significant diarrhea of unexplained origin Providers: Melba Bunn MD Referring MD: Melba Bunn MD Medicines: Monitored Anesthesia Care Complications: No immediate complications. Estimated blood loss: Minimal. Estimated Blood Loss: Estimated blood loss was minimal. Procedure: Pre-Anesthesia Assessment: - Prior to the procedure, a History and Physical was performed, and patient medications and allergies were reviewed. The patient is competent. The risks and benefits of the procedure and the sedation options and risks were discussed with the patient. All questions were answered and informed consent was obtained. Patient identification and proposed procedure were verified by the physician, the nurse, the clergy member and the air conditioning service technician in the pre-procedure area in the endoscopy suite. Mental Status Examination: alert and oriented. Airway Examination: normal oropharyngeal airway and neck mobility. Respiratory Examination: clear to auscultation. CV Examination: normal. Prophylactic Antibiotics: The patient does not require prophylactic antibiotics. Prior Anticoagulants: The patient has taken no anticoagulant or antiplatelet agents.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 ID: [id number] Transcribed By: Self Edit Transcribed Date: 05/15/2025 07:41 ET us Joshua Castellanos MD IMG XR PROCEDURES Final R esult * (ABNORMAL) Helicobacter pylori antigen, stool (05/08/2025 11:14 AM EDT) Helicobacter Pylori Ag DETECTED( A) Not detected 05/13/2025 1:18 PM EDT [facility] Comment: This test was performed at [facility] using a chemiluminescent immunoassay intended for the [...] Food and Drug Administration. Test performed at [facility], [address] , [place], [place] [id number] Krystina Austin MD, PhD - Dehydration Unit Operator Stool Rectum structure / Unknown Non-blood Collection / Unknown 05/08/2025 11:14 AM EDT 05/08/2025 11:14 AM EDT Gia Lance NP LAB BODY FLUIDS AND STOOLS ROD ESCALANTE Final Result [facility] [address] [place] [address] * Gastrointestinal pathogens molecular study (05/08/2025 11:07 AM EDT) Pathologist [facility] Campylobacter Detection by PCR Not Detected Not Detected LAB MICROBIOLOGY METHOD 07/03/202 5 3:28 PM EDT [facility] Plesiomonas shigelloides Detection by PCR Not Detected Not Detected LAB MICROBIOLOGY METHOD 5 3:28 PM EDT [facility] Salmonella Detection by PCR Not Detected Not Detected LAB MICROBIOLOGY METHOD 5 3:28 PM EDT [facility] Vibrio Detection by PCR Not Detected Not Detected LAB MICROBIOLOGY METHOD 5 3:28 PM EDT [facility] Vibrio cholerae Detection by PCR Not Detected Not Detected LAB MICROBIOLOGY METHOD 5 3:28 PM EDT [facility] Yersinia enterocolitica Detection by PCR Not Detected Not Detected [facility] Enteroaggregative E coli EAEC Detection by PCR Not Detected Not Detected LAB MICROBIOLOGY METHOD 5 3:28 PM EDT [facility] Enteropathogenic E coli EPEC Detection Not Detected Not Detected LAB MICROBIOLOGY METHOD 5 3:28 PM EDT [facility] Enterotoxigenic E coli ETEC LTST Detection Not Detected Not Detected LAB [facility]BIOLOGY [facility] 5 3:[facility] Shiga-like toxin producing E coli STEC STX1 STX2 Det Not Detected Not Detected LAB MICROBIOLOGY METHOD 5 3:28 PM EDT [facility] Shigella Enteroinvasive E coli EIEC Detection Not Detected Not Detected LAB MICROBIOLOGY METHOD 5 3:28 PM EDT [facility] Cryptosporidium Detection by PCR Not Detected Not Detected LAB MICROBIOLOGY METHOD 5 3:28 PM EDT [facility] Cyclospora cayetanensis Detection by PCR Not Detected Not Detected LAB MICROBIOLOGY METHOD 5 3:[facility] Entamoeba histolytica Detection by PCR Not Detected Not Detected LAB MICROBIOLOGY METHOD 5 3:28 PM EDT [facility] Giardia lamblia Detection by PCR Not Detected Not Detected LAB MICROBIOLOGY METHOD 5 3:28 PM EDT [facility] Adenovirus F 40 41 Detection by PCR Not Detected Not Detected LAB MICROBIOLOGY METHOD 5 3:28 PM EDT [facility] Astrovirus Detection by PCR Not Detected Not Detected LAB MICROBIOLOGY METHOD 5 3:28 PM EDT [facility] Norovirus GI GII Detection by PCR Not Detected LAB MICROBIOLOGY METHOD 5 3:28 PM EDT [facility] Sapovirus Detection by PCR Not Detected Not Detected LAB MICROBIOLOGY METHOD 5 3:28 PM EDT [facility] Rotavirus A Detection by PCR Not Detected Not Detected LAB MICROBIOLOGY METHOD 5 3:28 PM EDT [facility] Stool Rectum structure / Unknown Non-blood Collection / Unknown 05/08/2025 11:07 AM EDT 05/08/2025 11:[address] [facility] - 05/08/2025 3:28 PM EDT PCR testing is much more sensitive than [...] additional guidance. Testing Performed by [employer] us Gia Lance NP LAB MICROBIOLOGY - GENERAL ROD ESCALANTE Final Result [facility] [address] [place] [address], * Calprotectin, stool (05/08/2025 11:07 AM EDT) Calprotectin, Fecal 16.5 <50 mcg/g 05/12/2025 2:27 PM EDT [facility] Comment: <50 mcg/g Normal 50 - 120 mcg/g Borderline >120 mcg/g Abnormal Borderline results suggest repeat testing in 4 to 6 weeks. Test performed at [facility], [address] , [place] [address] Krystina Austin MD, PhD - Dehydration Unit Operator Stool Rectum structure / Unknown Non-blood Collection / Unknown 05/08/2025 11:07 AM EDT 05/08/2025 11:07 AM EDT Gia Lance NP LAB BODY FLUIDS AND STOOLS ORDE BORIS Final Result [facility] [address] [place] [address] * Clostridium difficile toxin (05/08/2025 11:07 AM EDT) Clostridium difficile GDH Antigen Negative Negative 05/08/2025 3:19 PM EDT [facility] C difficile Toxins A+B, EIA Negative Negative 05/08/2025 3:19 PM EDT [facility] Comment:NEGATIVE FOR TOXIN P RODUCING CLOSTRIDIOIDES DIFFICILE, NO ADDITIONAL TESTING IS NECESSARY. Stool Rectum structure / Unknown Non-blood Collection / Unknown 05/08/2025 11:07 AM EDT 05/08/2025 11:07 AM EDT Gia Lance NP LAB MICROBIOLOGY - GENERAL ORDKetan ESCALANTE Final Result [facility] [address] [place] [address], [place] [phone] * [place] ARTHROCENTESIS/ASPIRATION/INJECTION MAJOR JOINT/BURSA W/O U/S GUIDANCE (05/07/2025 1:00 PM EDT) Narrative Von Mcclure MD - 05/07/2025 1:00 PM EDT Irma Erickson NP 05/07/2025 1:27 PM L Inj/Asp: bilateral knee Indications: pain Details: 22 G needle, anterolateral approach Medications (Right): 16.8 mg sodium hyaluronate (viscosup) 16.8 mg/2 mL Medications (Left): 16.8 mg sodium hyaluronate (viscosup) 16.8 mg/2 mL Outcome: tolerated well, no immediate complications Informed Consent: Laterality: Bilateral Relevant images/test results available and reviewed: yes Health status cleared: Yes Procedure/treatment, purpose, treatment alternatives, risks/potential complications and benefits explained: yes Risk/complications/benefits details: Risks and benefits associated with the injection reviewed which can include but not limited to infection, bleeding, bruising, transient synovitis, no improvement in symptoms. Patient questions answered: yes Patient agrees, verbalizes understanding, and wants to proceed: yes Consent given by: Patient Informed consent discussion completed by Physician/MODESTA with patient: Verbal Pre-procedure timeout performed: yes Irma Erickson COMMUNITY ASSISTANT IN CLINIC/BEDSIDE ORDER KAILASH Final Result * Hemoglobin A1c (05/05/2025 3:41 PM EDT) Hemoglobin A1C 5.7 <6.5 % LAB CHEMISTRY METHOD 05/05/2025 9:07 PM EDT [facility] Mean Bld Glu Estim. 117 mg/dL LAB CHEMISTRY METHOD 05/05/2025 9:07 PM EDT [facility] Blood Venous blood specimen / Unknown Venipuncture / Unknown 05/05/2025 3:41 PM EDT 05/05/2025 4:09 PM EDT Araceli BOOTHE LAB BLOOD ORDERABLES Fin al Result [facility]) [facility] [address] [place] [address], * [place] ARTHROCENTESIS/ASPIRATION/INJECTION MAJOR JOINT/BURSA W/O U/S GUIDANCE (05/01/2025 1:30 PM EDT) Von Andujar MD - 05/01/2025 1:30 PM EDT Irma Erickson NP 05/01/2025 1:52 PM L Inj/Asp: bilateral knee Indications: pain Details: 22 G needle, anterolateral approach Medications (Right): 16.8 mg sodium hyaluronate (viscosup) 16.8 mg/2 mL Medications (Left): 16.8 mg sodium hyaluronate (viscosup) 16.8 mg/2 mL Outcome: tolerated well, no immediate complications Informed Consent: Laterality: Bilateral Relevant images/test results available and reviewed: yes Health status cleared: Yes Procedure/treatment, purpose, treatment alternatives, risks/potential complications and benefits explained: yes Risk/complications/benefits details: Risks and benefits associated with the injection reviewed which can include but not limited to infection, bleeding, bruising, transient synovitis, no improvement in symptoms. Patient questions answered: yes Patient agrees, verbalizes understanding, and wants to proceed: yes Consent given by: Patient Informed consent discussion completed by Physician/MODESTA with patient: Verbal Pre-procedure timeout performed: yes Irma Erickson COMMUNITY ASSISTANT IN CLINIC/BEDSIDE ORDER KAILASH Final Result * [place] ARTHROCENTESIS/ASPIRATION/INJECTION MAJOR JOINT/BURSA W/O U/S GUIDANCE (04/24/2025 1:30 PM EDT) Von Andujar MD - 04/24/2025 1:30 PM EDT Irma Erickson NP 04/24/2025 2:02 PM L Inj/Asp: bilateral knee Indications: pain Details: 22 G needle, anterolateral approach Medications (Right): 16.8 mg sodium hyaluronate (viscosup) 16.8 mg/2 mL Medications (Left): 16.8 mg sodium hyaluronate (viscosup) 16.8 mg/2 mL Informed Consent: Laterality: Bilateral Relevant images/test results available and reviewed: yes Health status cleared: Yes Procedure/treatment, purpose, treatment alternatives, risks/potential complications and benefits explained: yes Risk/complications/benefits details: Risks and benefits associated with the injection reviewed which can include but not limited to infection, bleeding, bruising, transient synovitis, no improvement in symptoms. Patient questions answered: yes Patient agrees, verbalizes understanding, and wants to proceed: yes Consent given by: Patient Informed consent discussion completed by Physician/MODESTA with patient: Verbal Pre-procedure timeout performed: yes us Irma Erickson NP IN CLINIC/BEDSIDE ORDER KAILASH Final Result * (ABNORMAL) Basic metabolic panel (04/20/2025 6:04 AM EDT) Only the most recent of2 resultswithin the time period is included. Sodium 137 133 - 145 mmol/L LAB CHEMISTRY METHOD 04/20/2025 7:21 AM [facility] Potassium 4.3 3.5 - 5.5 mmol/L LAB CHEMISTRY METHOD 04/20/2025 7:21 AM [facility] Chloride 107 96 - 110 mmol/L LAB CHEMISTRY METHOD 04/20/2025 7:21 AM [facility] CO2 27 21 - 32 mmol/L LAB CHEMISTRY METHOD 04/20/2025 7:21 AM [facility] Anion Gap 3 3 - 11 LAB CHEMISTRY METHOD 04/20/2025 7:21 AM [facility] Glucose 102(H) 70 - 100 mg/dL LAB CHEMISTRY METHOD 04/20/2025 7:21 AM [facility] BUN 7 5 - 25 mg/dL LAB CHEMISTRY METHOD 04/20/2025 7:21 AM [facility] Creatinine 0.82 0.50 - 1.10 mg/dL LAB CHEMISTRY METHOD 04/20/2025 7:21 AM [facility] eGFR 84 >=60 mL/min/1. 73m2 LAB CHEMISTRY METHOD 04/20/2025 7:21 AM [facility] Comment:Calculation based on the Chronic Kidney Disease Epidemiology Collaboration (CKD-EPI) equation refit without adjustment for race. BUN/Creatinine Ratio 8.5 LAB CHEMISTRY METHOD 04/20/2025 7:21 AM [facility] Calcium 8.4(L) 8.5 - 10.5 mg/dL LAB CHEMISTRY METHOD 04/20/2025 7:21 AM EDT [facility] Blood Venous blood specimen / Unknown Venipuncture / Unknown 04/20/2025 6:04 AM EDT 04/20/2025 6:48 AM EDT Nas Bergman MD LAB BLOOD ORDERABLES Nataliia l Result Performing Organization Address City/[facility]/ZIP Co de Phone Number [facility]) [facility] [address] [place] [address], [place] [phone] * ECG 12 lead (04/19/2025 10:44 PM EDT) Only the most recent of2 resultswithin the time period is included. Ventricular Rate ECG 57 BPM GEMUSE Atrial Rate 57 BPM GEMUSE P-R Interval 176 ms GEMUSE QRS Duration 68 ms GEMUSE Q-T Interval 458 ms GEMUSE QTc 445 ms GEMUSE P Wave Matlock 35 degrees GEMUSE R Matlock 1 degrees GEMUSE T Matlock 35 degrees GEMUSE ECG Interpretation Sinus bradycardia Low voltage QRS Borderline ECG When compared with ECG of 05-APR-2025 11:49, No significant change was found Confirmed by MD John, Warren ([id number]) on 04/21/2025 9:01:28 AM GEMUSE 04/19/2025 10:4 4 PM EDT 04/21/2025 9:01 AM EDT Rossy BOOTHE ECG ORDERABLES Final Result Performing Organization Address [facility]/ZIP Co de Phone Number GEMUSE * XR Chest 2 Views (04/19/2025 6:50 PM EDT) Only the most recent of2 resultswithin the time period is included. Anatomical Region Laterality Modality Body Radiographic Krystyna ging 04/19/2025 10:4 6 PM EDT Impressions 04/19/2025 10:46 PM EDT FINDINGS/IMPRESSION: Normal heart size and pulmonary vascularity. Lungs are clear and costophrenic angles are sharp. No acute osseous abnormality. Cholecystectomy clips. -------- FINAL REPORT -------- Dictated By: Elza Castellanos Dictated Date: 04/19/2025 22:46 ET Assigned Physician: Elza Castellanos Reviewed and Electronically Signed By: Elza Castellanos Signed Date: 04/19/2025 22:46 ET Workstation ID: [id number] Transcribed By: Self Edit Transcribed Date: 04/19/2025 22:46 ET Narrative 04/19/2025 10:46 PM EDT XR CHEST 2 VIEWS INDICATION: Productive cough, clinical question pneumonia TECHNIQUE: XR CHEST 2 VIEWS COMPARISON: No priors available. Procedure Note Elza Castellanos MD - 04/19/2025 XR CHEST 2 VIEWS INDICATION: Productive cough, clinical question pneumonia TECHNIQUE: XR CHEST 2 VIEWS COMPARISON: No priors available. IMPRESSION: FINDINGS/IMPRESSION: Normal heart size and pulmonary vascularity. Lungsare clear and costophrenic angles are sharp. No acute osseousabnormality. Cholecystectomy clips. -------- FINAL REPORT -------- Dictated By: Elza Castellanos Dictated Date: 04/19/2025 22:46 ET Assigned Physician: Elza Castellanos Reviewed and Electronically Signed By: Elza Castellanos Signed Date: 04/19/2025 22:46 ET Workstation ID: [id number] Transcribed By: Self Edit Transcribed Date: 04/19/2025 22:46 ET Jose Marmolejo MD IMG XR PROCEDURES Final Result * (ABNORMAL) Ethanol (04/19/2025 4:24 PM EDT) Ethanol Level 132(H) 0 - 10 mg/dL LAB CHEMISTRY METHOD 04/19/2025 5:00 PM EDT [facility] Blood Venous blood specimen / Unknown Venipuncture / Unknown 04/19/2025 4:24 PM EDT 04/19/2025 4:28 PM EDT Jose Marmolejo MD LAB BLOOD ORDERABLES Final Resu lt [facility] [address] [place] [address], [place] [phone] * (ABNORMAL) Acetaminophen level (04/19/2025 4:24 PM EDT) Acetaminophen Level <2.0(L) 10.0 - 30.0 mcg/mL LAB CHEMISTRY METHOD 04/19/2025 5:00 PM EDT [facility] Blood Venous blood specimen / Unknown Venipuncture / Unknown 04/19/2025 4:24 PM EDT 04/19/2025 4:28 PM EDT us Jose Marmolejo MD LAB BLOOD ORDERABLES Final Resu lt Performing Organization Address [facility]/ZIP Co de Phone Number [facility] [address] [place] [address], [place] [phone] * Salicylate level (04/19/2025 4:24 PM EDT) Salicylate Level 4.8 2.0 - 29.0 mg/dL LAB CHEMISTRY METHOD 04/19/2025 5:00 PM EDT [facility] Blood Venous blood specimen / Unknown Venipuncture / Unknown 04/19/2025 4:24 PM EDT 04/19/2025 4:28 PM EDT us Jose Marmolejo MD LAB BLOOD ORDERABLES Final Resu lt [facility] [address] [place] [address], [place] [phone] * Drug abuse screen 8a panel, urine (04/19/2025 4:16 PM EDT) Amphetamine Screen, Ur Negative Negative LAB CHEMISTRY METHOD 04/19/2025 4:58 PM EDT [facility] Comment:Certain OTC medicati ons containing ephedrine, phenylephrine, pseudoephedrine and phenylpropanolamine can cause false positive results. Barbiturate Screen, Ur Negative Negative LAB CHEMISTRY METHOD 04/19/2025 4:58 PM EDT [facility] Benzodiazepine Screen, Ur Negative Negative LAB CHEMISTRY METHOD 04/19/2025 4:58 PM EDT [facility] Cocaine Screen, Ur Negative Negative LAB CHEMISTRY METHOD 04/19/2025 4:58 PM EDT [facility] Opiate Screen, Ur Negative Negative LAB CHEMISTRY METHOD 04/19/2025 4:58 PM EDT [facility] Cannabinoid (THC) Screen, Ur Negative Negative LAB CHEMISTRY METHOD 04/19/2025 4:58 PM EDT [facility] Comment:Specimens from patie nts taking pantoprazole sodium (Protonix) have been shown to produce false positive results. Oxycodone Screen, Ur Negative Negative LAB CHEMISTRY METHOD 04/19/2025 4:58 PM EDT [facility] Fentanyl, Ur Negative Negative LAB CHEMISTRY METHOD 04/19/2025 4:58 PM EDT [facility] Urine Urine specimen obtained by clean catch procedure / Unknown Non-blood Collection / Unknown 04/19/2025 4:16 PM EDT 04/19/2025 4:28 PM EDT Narrative [facility] - 04/19/2025 4:58 PM EDT Assay cutoffs: Amphetamines 1000 ng/mL Barbiturates 200 ng/mL Benzodiazepines 200 ng/mL Cocaine 300 ng/mL Fentanyl 1 ng/mL Opiates 300 ng/mL Oxycodone 100 ng/mL THC 50 ng/mL Semi-quantitative assay for screening purposes only. Unconfirmed screening result should not be used for non-medical purposes. *ALTERNATE METHOD CONFIRMATION DONE UPON REQUEST ONLY* us Jose Marmolejo MD LAB URINE ORDERABLES Final Resu lt [facility] [address] [place] [address], * Buprenorphine screen, urine (04/19/2025 4:16 PM EDT) Buprenorphine Screen Urine Negative Negative LAB CHEMISTRY METHOD 04/19/2025 4:58 PM EDT [facility] Urine Urine specimen obtained by clean catch procedure / Unknown Non-blood Collection / Unknown 04/19/2025 4:16 PM EDT 04/19/2025 4:28 PM EDT Narrative [facility] - 04/19/2025 4:58 PM EDT Assay cutoff 5 ng/mL Semi-quantitative assay for screening purposes only. Unconfirmed screening result should not be used for non-medical purposes. *ALTERNATE METHOD CONFIRMATION DONE UPON REQUEST ONLY* us Jose Marmolejo MD LAB URINE ORDERABLES Final Resu lt Performing Organization Address [facility] de Phone Number [facility] [address] [place] [address], [place] [phone] * Methadone, urine (04/19/2025 4:16 PM EDT) Methadone Screen, Urine Negative Negative LAB CHEMISTRY METHOD 04/19/2025 4:58 PM EDT [facility] Comment: Assay cutoff 300 ng/mL Semi-quantitative assay for screening purposes only. Unconfirmed screening result should not be used for non-medical purposes. *ALTERNATE METHOD CONFIRMATION DONE UPON REQUEST ONLY* Urine Urine specimen obtained by clean catch procedure / Unknown Non-blood Collection / Unknown 04/19/2025 4:16 PM EDT 04/19/2025 4:28 PM EDT us Jose Marmolejo MD LAB URINE ORDERABLES Final Resu lt Performing Organization Address [facility]/ZIP Co de Phone Number [facility] [address] [place] [address], [place] [phone] * Phencyclidine, urine (04/19/2025 4:16 PM EDT) PCP Scrn, Ur Negative Negative LAB CHEMISTRY METHOD 04/19/2025 4:58 PM EDT [facility] Comment: Assay cutoff 25 ng/mL Semi-quantitative assay for screening purposes only. Unconfirmed screening result should not be used for non-medical purposes. *ALTERNATE METHOD CONFIRMATION DONE UPON REQUEST ONLY* Urine Urine specimen obtained by clean catch procedure / Unknown Non-blood Collection / Unknown 04/19/2025 4:16 PM EDT 04/19/2025 4:28 PM EDT Jose aMrmolejo MD LAB URINE ORDERABLES Final Resu lt Performing Organization Address [facility]/ZIP Co de Phone Number [facility] [address] [place] [address], [place] [phone] * ECG-Annotated (04/06/2025) Provider Onbase ECG ORDERABLES Final Result * Troponin I high sensitivity (04/05/2025 1:03 PM EDT) Only the most recent of2 resultswithin the time period is included. [facility] High Sensitivity Troponin I 3 <=54 ng/L LAB CHEMISTRY METHOD 04/05/2025 1:39 PM EDT [facility] Blood Venous blood specimen / Unknown Venipuncture / Unknown 04/05/2025 1:03 PM EDT 04/05/2025 1:11 PM EDT Narrative [facility] - 04/05/2025 1:39 PM EDT High levels of biotin in samples may falsely decrease hsTroponin values. Use caution when interpreting hsTroponin results in patients taking biotin who exhibit renal impairment (eGFR <60) or in patients taking more than 20 mg/day of biotin. us Juan F Doshi MD LAB BLOOD ORDERABLES Final Result Performing Organization Address [facility]/ZIP Co de Phone Number [facility] [address] [place] [address], [place] [phone] * B-type natriuretic peptide (04/05/2025 12:01 PM EDT) BNP 20 <=100 pcg/mL LAB CHEMISTRY METHOD 04/05/2025 1:00 PM EDT [facility] Blood Venous blood specimen / Unknown Venipuncture / Unknown 04/05/2025 12:01 PM EDT 04/05/2025 12:10 PM EDT us Juan F Doshi MD LAB BLOOD ORDERABLES Final Result [facility] [address] [place] [address], [place] [phone] * MG Mammo Digital Screening w Sg bilat (02/05/2025 10:40 AM EDT) Anatomical Region Laterality Modality Breast Bilateral Mammography 02/06/2025 9:43 AM EDT Impressions 02/06/2025 9:45 AM EDT No evidence of breast malignancy. BI-RADS CATEGORY: 1 - NEGATIVE RECOMMENDATION: Screening bilateral mammogram is recommended in 1 year. Mammo Location: [facility], [address] [place], [place], [address], . -------- FINAL REPORT -------- Dictated By: Stefani Zamora Dictated Date: 02/06/2025 09:43 ET Assigned Physician: Stefani Zamora Reviewed and Electronically Signed By: Stefani Zamora Signed Date: 02/06/2025 09:45 ET Workstation ID: [id number] Transcribed By: Self Edit Transcribed Date: 02/06/2025 [...] year. Mammo Location: [facility], [address] [place] [address], Formerly [facility], . -------- FINAL REPORT -------- Dictated By: Stefani Zamora Dictated Date: 02/06/2025 09:43 ET Assigned Physician: Stefani Zamora Reviewed and Electronically Signed By: Stefani Zamora Signed Date: 02/06/2025 09:45 ET Workstation ID: [id number] Transcribed By: Self Edit Transcribed Date: 02/06/2025 09:43 ET Araceli BOOTHE IMG BI PROCEDURES Final Result * Lipid panel with reflex to direct LDL (10/28/2024 2:36 PM EST) Cholesterol 196 0 - 200 mg/dL LAB CHEMISTRY METHOD 10/28/2024 4:17 PM EST [facility] Triglycerides 51 0 - 150 mg/dL LAB CHEMISTRY METHOD 10/28/2024 4:17 PM EST [facility] HDL 111 >=40 mg/dL LAB CHEMISTRY METHOD 10/28/2024 4:17 PM EST [facility] LDL Calculated 75 0 - 100 mg/dL LAB CHEMISTRY METHOD 10/28/2024 4:17 PM EST [facility] VLDL Cholesterol Corby 10.2 mg/dL LAB CHEMISTRY METHOD 10/28/2024 4:17 PM EST [facility] Non HDL Chol. (LDL+VLDL) 85 <145 mg/dL LAB CHEMISTRY METHOD 10/28/2024 4:17 PM EST [facility] Chol/HDL Ratio 1.8 0.0 - 4.4 LAB CHEMISTRY METHOD 10/28/2024 4:17 PM [facility] Blood Venous blood specimen / Unknown Venipuncture / Unknown 10/28/2024 2:36 PM EST 10/28/2024 3:06 PM EST Araceli BOOTHE LAB BLOOD ORDERABLES Fin al Result [facility] [address] [place] [address], [place] [phone] * HIV Screening (05/20/2024) Pathologist [facility] HIV Screening abstracted [facility] Provider HEALTH MAINTENANCE Final Result * Hepatitis C Screening (05/20/2024) Pathologist [facility] Hepatitis C Screening abstracted Historical Provider HEALTH MAINTENANCE Final Result * Cervical Cancer Screening: HPV (07/20/2023) Pathologist [facility] Cervical Cancer Screening: HPV no interpreta tion,abstr acted Historical Provider HEALTH MAINTENANCE Final Result from Last 3 Months or Most Recently Relevant to Health Maintenance Insurance [facility] [place] [id number] Advance Directives * Full Code - Default (Latest Code Status on File) Date Activated Date Inactivated Comments 04/19/2025 8:09 PM 04/22/2025 11:54 AM This is ord er is used when code status has not been discussed with the patient, or code status is otherwise unknown/unconfirmed To update the patient's code status, place a code status order. Do not modify or discontinue any currently active code status orders. * Full Code - Default Date Activated Date Inactivated Comments 04/19/2025 7:54 PM 04/19/2025 8:09 PM This is orde r is used when code status has not been discussed with the patient, or code status is otherwise unknown/unconfirmed To update the patient's code status, place a code status order. Do not modify or discontinue any currently active code status orders. Care Teams Territory Sales Professional Relationship Specialty Start Date End Date Araceli Augustin PA [address] [place] [phone] PCP - General 11/20/24
--- OUTSIDE RECORDS SUMMARY | 2025-07-03 10:49 | XMS_ITS | Continuity of Care Document ---
Author Organization [facility] [address] [place] [address] Phone [phone] Care Team Providers Care Recruitment Intern Name Role Phone Vee Queen M.D Care Team Informa tijolanta Manager Human Capital [phone] Problems Active Problems Provider Date Anxiety Eric [...] Medications SIG Qnty Indications Ordering Provider Date [id number] Tablets 1 tabs by mouth at 11pm 1tabs Eric Shah M.D. 12/01/2022 [id number] Capsules Take 1 Capsule By Mouth 2 Times A Day Terence Olvera MD [id number] g TBPK follow package directions Unknown Vital Signs Date Vital Result Comment 12/01/2022 11:00am BP Systolic 130 mmHg BP Diastolic 70 mmHg Heart Rate 72 /min Height 64 inches 5'4 Weight 185.00 lb BMI (Body Mass Index) 31.8 kg/m2 Results Test Acquired Date Facility Test Result H/L Range N ote Cortisol 01/20/2023 [facility] Lab Cortisol 0.6 g/dL 1 Cortisol 01/06/2023 [facility] Refer [facility] Lab Cortisol <pending> Cortisol 01/05/2023 [facility] Referen ce Lab Cortisol 5.3 g/dL 2 Free T4 01/05/2023 [facility] Free T4 0.98 ng/dL (0.70-1.80) [facility] 0.52 uIU/mL (0.4-4.2) Free T4 01/04/2023 [facility] Referen ce Lab Free T4 <pending> TSH 01/04/2023 [facility] ce Lab TSH <pending> 1 Reference [...] Shah M.D. 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 12/01/2022 R53.83 Fatigue Eric person M.D. 12/01/2022 E04.2 Multinodular goiter Eric Small M.D. Plan of Treatment 12/01/2022 - Eric Sahh M.D.* E06.3 [place] thyroiditis * R53.83 Fatigue * E04.2 Multinodular goiter * Functional Status Description No Information Available Mental Status Description No Information Available Referrals Description No Information Available
--- OUTSIDE RECORDS SUMMARY | 2025-07-03 10:49 | XMS_ITS | Clinical Summary ---
Author Organization [facility] Address [address] [place] [address] Care Team Providers Care Aviation Consultant Name Role Phone Vee Allan MD Primary [...] age to complete this topic Care Teams Aviation Consultant Relationship Specialty Start Date End Date Vee Allan MD PCP - General Internal Medicine 12/05/19
--- OUTSIDE RECORDS SUMMARY | 2025-07-03 10:49 | XMS_ITS | Patient Health Record ---
Author Organization [facility] [address] Address [address] [place] [address] Care Team Providers Care Pcb Design Engineer Name Role Phone IKER ROBLERO Unavailable [phone] MILESCHINO CHRIS Unavailable [phone] Normoyle Sneha Unavailable [phone] Allergies Allergen (clinical drug ingredient) Drug/Non Drug Allergy documented on EMR Reaction Allergy Type Onset Date Status Macrolides and Ketolides hives Drug Allergy Active Results Component Value Reference Range Notes MG MAMMO DIGITAL SCREENING W HERACLIO BILAT Reviewed date:02/06/2025 11:57:46 AM Interpretation: Performing Lab: Notes/Report: Note See Note [facility], a member of [employer] Patient Name: MARÍA PHILLIPS Date of : 1965 Reason for Exam: SCREENING Exam Date: 02/05/2025 [id number] EST Report Status: Final Ordering Provider: IKER ROBLERO PCP: IKER ROBLERO CLINICAL: 59 years old, Female, routine annual exam. COMPARISON: 3 and [...] is recommended in 1 year. Mammo Location: [facility], [address] [place] [address], [id number], . -------- FINAL REPOR T -------- Dictated By: Stefani Zamora Dictated Date: 02/06/2025 09:43 ET Assigned Physician: Stefani Zamora Reviewed and Electronically Signed By: Stefani Zamora Signed Date: 02/06/2025 09:45 ET Workstation ID: [id number] Transcribed By: Self Edit Transcribed Date: 02/06/2025 09:43 ET US HEAD NECK SOFT TISSUE Reviewed date:02/10/2025 05:04:59 PM Interpretation: Performing Lab: Notes/Report: Note See Note [facility], a member of [employer] Patient Name: MARÍA PHILLIPS Date of : 1965 Reason for Exam: ENLARGED LYMPHNODE Exam Date: 02/08/2025 [id number] EST Report Status: Final Ordering Provider: CHINO [...] Signed Date: 02/08/2025 15:55 ET Workstation ID: [id number] Transcribed By: Self Edit Transcribed Date: 02/08/2025 15:52 ET Anti-La (SS-B) Ab (RDL)-5203 20 Reviewed date:02/11/2025 07:42:47 AM Interpretation: Performing Lab:[facility], [address], [place], Phone - [phone], Director - Elsa Notes/Report: Test(s) 598259-Zzsv-Ol-3 Ab (RDL) was developed and its performance characteristics determined by [facility]. It has not been cleared or approved by the Food and Drug Administration. Anti-La (SS-B) Ab (RDL) <20 <20 Units Negative: <20 Weak Positive: 20-39 Moderate Positive: 40-80 Strong Positive: >80 Anti-Sm Ab (RDL)-586379 Reviewed date:02/11/2025 07:42:50 AM Interpretation: Performing Lab:[facility] [place], [address] [place] [address], Phone - [phone], Director - [facility] Notes/Report: Test(s) 880572-Ptil-St-9 Ab (RDL) was developed and its performance characteristics determined by [facility]. It has not been cleared or approved by the Food and Drug Administration. Anti-Sm Ab (RDL) <20 <20 Units Negative: <20 Weak Positive: 20-39 Moderate Positive: 40-80 Strong Positive: >80 Anti-Ro (SS-A) Ab (RDL)-5200 10 Reviewed date:02/11/2025 07:42:55 AM Interpretation: Performing Lab:[facility] [place], [address] [place] [address], Phone - [phone], Director - [facility] Notes/Report: Test(s) 535039-Ttcp-Ae-1 Ab (RDL) was developed and its performance characteristics determined by [facility]. It has not been cleared or approved by the Food and Drug Administration. Anti-Ro (SS-A) Ab (RDL) <20 <20 Units Negative: <20 Weak Positive: 20-39 Moderate Positive: 40-80 Strong Positive: >80 Anti-Mi-2 Ab (RDL)-581871 Reviewed date:02/11/2025 07:42:59 AM Interpretation: Performing Lab:[facility] [place], [address] [place] [address], [place], Phone - [phone], Director - [facility] Notes/Report: Test(s) 247067-Iiez-Ve-0 Ab (RDL) was developed and its performance characteristics determined by [facility]. It has not been cleared or approved by the Food and Drug Administration. Anti-Mi-2 Ab (RDL) Negative Negative Comp. Metabolic Panel (14)-3 91757 Reviewed date:02/11/2025 07:43:25 AM Interpretation: Performing Lab:[facility] [address], Phone - [phone], Director - [facility] Notes/Report: Test(s) 128716-Jtuu-At-7 Ab (RDL) was developed and its performance [...] 0-40 IU/L ALT (SGPT) 13 0-32 IU/L Hafx-As-2-302673 Reviewed date:02/11/2025 07:43:02 AM Interpretation: Performing Lab:[facility] [address], Phone - [phone], Director - [facility] Notes/Report: Test(s) 414526-Okwx-Pm-2 Ab (RDL) was developed and its performance characteristics determined by [facility]. It has not been cleared or approved by the Food and Drug Administration. Anti-Lakisha-1 <0.2 0.0-0.9 AI Creatine Kinase (CK), MB-120 816 Reviewed date:02/11/2025 07:43:06 AM Interpretation: Performing Lab:[facility] [address], Phone - [phone], Director - [facility] Notes/Report: Test(s) 714858-Ijfw-Fz-1 Ab (RDL) was developed and its performance characteristics determined by [facility]. It has not been cleared or approved by the Food and Drug Administration. Creatine Kinase (CK), MB 1.4 0.0-5.3 ng/mL C-Reactive Protein, Cardiac- 179747 Reviewed date:02/11/2025 07:43:09 AM Interpretation: Performing Lab:[facility] [address], Phone - [phone], [facility] [place] Notes/Report: Test(s) 256143-Juzx-Qh-8 Ab (RDL) was developed and its performance characteristics determined by [facility]. It has not been cleared or approved by the Food and Drug Administration. C-Reactive Protein, Cardiac 1.34 0.00-3.00 mg/L Relative Risk for Future Cardiovascular Event Low <1.00 Average 1.00 - 3.00 High >3.00 Anti-dsDNA Antibodies-526264 Reviewed date:02/11/2025 07:43:13 AM Interpretation: Performing Lab:[facility] [address], Phone - [phone], Director [facility] Notes/Report: Test(s) 045837-Xvns-Dr-1 Ab (RDL) was developed and its performance characteristics determined by [facility]. It has not been cleared or approved by the Food and Drug Administration. Anti-DNA (DS) Ab Qn 1 0-9 IU/mL Negative <5 Equivocal 5 - 9 Positive >9 Complement C3, Serum-766313 Reviewed date:02/11/2025 07:43:16 AM Interpretation: Performing Lab:[facility] [address], Phone - [phone], Director [facility] Notes/Report: Test(s) 998362-Ddsj-Nt-3 Ab (RDL) was developed and its performance characteristics determined by [facility]. It has not been cleared or approved by the Food and Drug Administration. Complement C3, Serum 119 82-167 mg/dL [facility] Reviewed date:02/11/2025 07:42:43 AM Interpretation: Performing Lab:[facility] [address], Phone - [phone], [facility] Notes/Report: Test(s) 627827-Vhnk-Ge-6 Ab (RDL) was developed and its performance [...] assigned Comprehensive Metabolic Panel (14), Test Code #842110 to this request. If this is not the testing you wished to receive on this specimen, please contact the [facility] Client Inquiry/Technical Services Department to clarify the test order. We appreciate your business. CBC With Differential/Platel et-078471 Reviewed date:02/11/2025 07:43:32 AM Interpretation: Performing Lab:[facility], [address] [place] [address], [place], Phone - [phone], Director - Elsa Notes/Report: Test(s) 554389-Ojvv-Zu-2 Ab (RDL) was developed and its performance characteristics determined by [employer]. It has not been cleared or approved [...] Grans (Abs) 0.0 0.0-0.1 x10E3/uL Complement C4, Serum-471244 Reviewed date:02/11/2025 07:43:19 AM Interpretation: Performing Lab:[facility], [address] [place] [address] Avenue, [place], Phone - [phone], Director - Elsa Notes/Report: Test(s) 837723-Torw-Ve-5 Ab (RDL) was developed and its performance characteristics determined by [facility]. It has not been cleared or approved by the Food and Drug Administration. Complement C4, Serum 18 12-38 mg/dL CAMILO IFA WITH TITER AND GIOVANNA SAMSON [...] Lab: Notes/Report: Sed Rate 4 0-30 mm/hr FERRITIN Reviewed date:10/28/2024 04:25:26 PM Interpretation: Performing Lab: Notes/Report: Ferritin 28 8-252 ng/mL IRON AND TIBC Reviewed date:10/28/2024 04:25:22 PM Interpretation: Performing Lab: Notes/Report: Iron 41 40-150 mcg/dL TIBC 392 250-450 mcg/dL Iron Saturation 10 15-50 % HEMOGLOBIN A1C Reviewed date:10/29/2024 11:55:59 AM Interpretation: Performing Lab: Notes/Report: Hemoglobin A1C 5.4 <6.5 % Mean Bld Glu Estim. 108 COMPREHENSIVE METABOLIC PANE L Reviewed date:10/28/2024 04:25:35 [...] 3.2-5.0 g/dL Total Bilirubin 0.3 0.0-1.4 mg/dL THYROID STIMULATING HORMONE Reviewed date:10/28/2024 04:25:11 PM Interpretation: Performing Lab: Notes/Report: TSH 0.60 0.40-4.00 mcIU/mL VITAMIN D 25 HYDROXY Reviewed date:10/28/2024 04:25:14 [...] 1.8 0.0-4.4 CBC WITH AUTO DIFFERENTIAL Reviewed date:10/28/2024 04:25:45 [...] K/mcL Immature Granulocytes Absolute 0.05 0.00-0.03 K/mcL NM HEPATOBILIARY SYSTEM IMAG ING Reviewed date:05/15/2025 03:07:20 PM Interpretation: Performing Lab: Notes/Report: Note See Note [facility], a member of [employer] Patient Name: MARÍA PHILLIPS Date of : 1965 Reason for Exam: Abdominal pain, upper, recurrent, post cholecystectomy Exam Date: 05/15/2025 [id number] EST Report Status: Final Ordering Provider: ALEXEI CARTER PCP: IKER ROBLERO History: Abdominal pain, chronic, right upper quadrant. Prior cholecystectomy. Comparison: CT abdomen/pelvis 12/05/24 Technique: Continuou s anterior imaging of the abdomen was performed [...] Impression: Normal hepatobiliary scintigraphy status post cholecystectomy. Kalpana BOOTHE ([id number]) -------- FINAL REPOR T -------- Dictated By: Dayami Walker i Dictated Date: 05/15/2025 11:46 ET Assigned Physician: Dayami Diehl Reviewed and Electronically Signed By: Dayami Diehl Signed Date: 05/15/2025 11:48 ET Workstation ID: [id number] Transcribed By: Self Edit Transcribed Date: 05/15/2025 11:46 ET XR HAND 3+ VIEWS RIGHT Reviewed date:05/15/2025 07:58:11 AM Interpretation: Performing Lab: Notes/Report: Note See Note [facility], a member of [facility] Patient Name: MARÍA PHILLIPS Date of : 1965 Reason for Exam: pain Exam Date: 05/14/2025 [id number] EST Report Status: Final Ordering Provider: OLAF KAPLAN PCP: IKER ROBLERO HISTORY: The patient is a 59-year-old female with pain in the right hand and wrist. No history of trauma is provided. FINDINGS: AP, latera l, and oblique views of the right wrist, [...] elsewhere. No soft tissue abnormality is seen. IMPRESSION: No acute findings. Bony demineralization. Severe deformity of the lunate with loss of height which may be consequent to old trauma or to avascular necrosis. 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 Code 54952, 89094 -------- FINAL REPOR T -------- Dictated By: Mauro Wright Dictated Date: 05/15/2025 07:41 ET Assigned Physician: Mauro Wright Reviewed and Electronically Signed By: Mauro Wright Signed Date: 05/15/2025 07:44 ET Workstation ID: [id number] Transcribed By: Self Edit Transcribed Date: 05/15/2025 07:41 ET XR WRIST 3+ VIEWS RIGHT Reviewed date:05/15/2025 07:58:21 AM Interpretation: Performing Lab: Notes/Report: Note See Note [facility], a member of [facility] Patient Name: MARÍA PHILLIPS Date of : 1965 Reason for Exam: rm Exam Date: 05/14/2025 [id number] EST Report Status: Final Ordering Provider: OLAF KAPLAN PCP: IKER ROBLERO Please see combined report with radiographs of the right hand. -------- FINAL REPOR T -------- Dictated By: Mauro Wright Dictated Date: 05/15/2025 07:41 ET Assigned Physician: Mauro Wright Reviewed and Electronically Signed By: Mauro Wright Signed Date: 05/15/2025 07:41 ET Workstation ID: [id number] Transcribed By: Self Edit Transcribed Date: 05/15/2025 07:41 ET HELICOBACTER PYLORI ANTIGEN, STOOL Reviewed date:05/13/2025 04:03:38 PM Interpretation: Performing Lab: Notes/Report: Helicobacter Pylori Ag DETECTED Not detected This test was performed at [facility] using a chemiluminescent immunoassay intended for the [...] Food and Drug Administration. Test performed at [facility], [address] , [place] [address] Krystina Austin MD, PhD - Meter Attendant URINALYSIS WITH REFLEX MICRO SCOPIC AND CULTURE Reviewed date:03/24/2025 07:44:34 AM Interpretation: Performing Lab: Notes/Report: Specific Artemus Urine 1.010 1.003-1.030 pH, Urine 8.0 5.0-8.0 [...] 3.2-5.0 g/dL Total Bilirubin 0.3 0.0-1.4 mg/dL MAGNESIUM Reviewed date:03/24/2025 07:44:48 AM Interpretation: Performing Lab: Notes/Report: Magnesium 2.2 1.9-2.6 mg/dL THYROID STIMULATING HORMONE Reviewed date:03/24/2025 07:44:38 AM Interpretation: Performing Lab: Notes/Report: TSH 0.79 0.40-4.00 mcIU/mL CBC WITH AUTO DIFFERENTIAL Reviewed date:03/24/2025 07:49:47 [...] K/mcL Immature Granulocytes Absolute 0.04 0.00-0.03 K/mcL XR FLUORO UP TO 1 HOUR Reviewed date:02/04/2025 05:11:16 PM Interpretation: Performing Lab: Notes/Report: Note See Note [facility], a member of [employer] Patient Name: MARÍA PHILLIPS Date of : 1965 Reason for Exam: pain Exam Date: 02/04/2025 [id number] EST Report Status: Final Ordering Provider: DAVID TRIVEDI PCP: IKER ROBLERO EXAMINATION: Imaging assistance provided during a procedure CLINICAL INFORMATION: Pain. Lumbar epidura l injection. COMPARISON: None. TECHNIQUE: PAIN MANAGEMENT-Imaging assistance [...] Signed Date: 02/04/2025 12:53 ET Workstation ID: [id number] Transcribed By: Self Edit Transcribed Date: 02/04/2025 12:51 ET XR SHOULDER 2+ VIEWS BILAT Reviewed date:01/08/2025 05:02:44 PM Interpretation: Performing Lab: Notes/Report: Note See Note [facility], a member of [facility] Patient Name: MARÍA PHILLIPS Date of : 1965 Reason for Exam: bilateral shoulder pain Exam Date: 01/08/2025 [id number] EST Report Status: Final Ordering Provider: NICHELLE CARRILLO PCP: IKER ROBLERO Date of Visit: [...] calcific tendinitis and narrowing of subacromial space XR CERVICAL SPINE 4-5 VIEWS Reviewed date:11/19/2024 04:14:57 PM Interpretation: Performing Lab: Notes/Report: Note See Note [facility], a member of [facility] Patient Name: MARÍA PHILLIPS Date of : 1965 Reason for Exam: OTHER Exam Date: 11/18/2024 [id number] EST Report Status: Final Ordering Provider: IKER [...] to the prior neck CTA. [place] ([id number]) -------- FINAL REPOR T -------- Dictated By: Dayami Walker i Dictated Date: 11/19/2024 13:40 ET Assigned Physician: Dayami Diehl Reviewed and Electronically Signed By: Dayami Diehl Signed Date: 11/19/2024 13:45 ET Workstation ID: [id number] Transcribed By: Self Edit Transcribed Date: 11/19/2024 13:40 ET CREATINE KINASE Reviewed date:03/24/2025 07:44:57 AM Interpretation: Performing Lab: Notes/Report: Total CK 87 22-269 unit/L EKG (Not yet reviewed by pro vider) Interpretation: Performing Lab: Notes/Report: ECGDiastolicBP 68 ECGHr 73 ECGPRInterval 158 ECGPWaveAxis 34 ECGQRSDuration 78 ECGQrsWaveAxis 33 ECGQTcInterval 404 ECGQTInterval 382 ECGSystolicBP 116 ECGTWaveAxis 31 RR_DiastolicBP 0 RR_MaxRRInterval 0 RR_MeanHR 0 RR_MeanRRInterval 0 RR_MinRRInterval 0 RR_NumBeats 0 RR_NumNormalBeats 0 RR_SystolicBP 0 URINALYSIS WITH REFLEX MICRO SCOPIC AND CULTURE Reviewed date:01/21/2025 02:02:02 PM Interpretation: Performing Lab: Notes/Report: Specific Artemus Urine 1.034 1.003-1.030 pH, Urine 6.5 5.0-8.0 pH Leukocytes, Urine Negative Negative Nitrite, Urine Negative Negative Protein, Urine Trace <=Trace mg/dL Glucose, Urine Negative Negative mg/dL Ketones, Urine Negative Negative mg/dL Urobilinogen, Urine 0.2 0.2-1.0 mg/dL Bilirubin, Urine Negative Negative Blood, Urine Negative Negative TISSUE EXAM Reviewed date:06/08/2025 11:10:45 PM Interpretation: Performing Lab: Notes/Report: Final Diagnosis Colon, ascending, biopsy: - Colonic mucosa without diagnostic histopathologic change. - No increase in intraepithelial lymphocytes and no thickening of the subepithelial collagen plate identified. Gross Description A. Large Intestine, Right/Ascending Colon, biopsy: Labeled ascending colon biopsy . Received in formalin are five irregular rocha mucosal tissue fragments, each measuring approximately 0.2 cm in greatest dimension, which are wrapped in paper and submitted in toto in one cassette, five pieces, multiple levels on one slide. CATRINA Disclaimer Unless otherwise specified, all tissue is 10% NB formalin fixed and paraffin embedded. CALPROTECTIN, STOOL Reviewed date:05/12/2025 05:08:37 PM Interpretation: Performing Lab: Notes/Report: Calprotectin, Fecal 16.5 <50 mcg/g <50 mcg/g Normal 50 - 120 mcg/g Borderline >120 mcg/g Abnormal Borderline results suggest repeat testing in 4 to 6 weeks. Test performed at [facility], [facility] [place] [address] Krystina Austin MD, PhD - Meter Attendant CBC WITH AUTO DIFFERENTIAL Reviewed date:03/05/2025 07:32:33 [...] K/mcL Immature Granulocytes Absolute 0.03 0.00-0.03 K/mcL BORRELIA BURGDORFERI ANTIBOD Y Reviewed date:12/06/2024 12:06:22 PM Interpretation: Performing Lab: Notes/Report: Lyme Ab Negative Negative No laboratory evidence of infection with B. burgdorferi (Lyme disease). Negative results may occur in patients recently infected (<=14 days) with B. burgdorferi. If recent infection is suspected, repeat testing on a new sample collected in 7-[address] CHEST WO CONTRAST Reviewed date:06/03/2025 12:20:20 PM Interpretation: Performing Lab: Notes/Report: Note See Note [facility], a member of [employer] Patient Name: MARÍA PHILLIPS Date of : 1965 Reason for Exam: PULMONARY NODULE Exam Date: 05/28/2025 [id number] EST Report Status: Final Ordering Provider: IKER ROBLERO PCP: IKER ROBLERO History: Pulmonary nodule follow-up. Comparison: 12/05/24 Technique: Helical volumetric imaging of the thorax was performed without IV contrast. DLP: 279.09 mGy/cm Pepperweed Consultinger Iterative reconstruction technique Findings: The trachea and [...] without suspicious nodule. A small portion of t he upper abdomen included on the lowest images through the thorax is remarkable for a 9 mm cyst in the left hepatic lobe, unchanged. Cholecystectomy clips are noted. The regional skeleto n is intact. IMPRESSION: Impression: 1. Stable subcentimeter pulmonary nodules being followed, reassuring for a benign process. One-year follow-up recommended. 2. No developing thoracic lymphaden[place] ([id number]) -------- FINAL REPOR T -------- Dictated By: Dayami Walker i Dictated Date: 06/02/2025 09:00 ET Assigned Physician: Dayami Diehl Reviewed and Electronically Signed By: Dayami Diehl Signed Date: 06/02/2025 09:13 ET Workstation ID: [id number] Transcribed By: Self Edit Transcribed Date: 06/02/2025 09:00 ET GASTROINTESTINAL PATHOGENS M TRESGERARD STUDY Reviewed date:05/08/2025 03:43:25 PM Interpretation: [...] CLOSTRIDIOIDES DIFFICILE, NO ADDITIONAL TESTING IS NECESSARY. COMPREHENSIVE METABOLIC PANE L Reviewed date:05/05/2025 05:25:25 [...] Interpretation: Performing Lab: Notes/Report: Note See Note [facility], a member of [facility] Patient Name: MARÍA PHILLIPS Date of : 1965 Reason for Exam: pain Exam Date: 03/11/2025 [id number] EST Report Status: Final Ordering Provider: DAVID [...] Electronically Signed By: Mauro Wright Signed Date: 03/11/2025 11:03 ET Workstation ID: [id number] Transcribed By: Self Edit Transcribed Date: 03/11/2025 11:02 ET THYROID STIMULATING HORMONE WITH REFLEX TO FREE T4 AND FREE T3 Reviewed date:03/06/2025 07:35:25 AM Interpretation: Performing Lab: Notes/Report: TSH 1.43 0.40-4.00 mcIU/mL VITAMIN D 25 HYDROXY Reviewed date:03/06/2025 07:35:20 AM Interpretation: Performing Lab: Notes/Report: Vit D, 25-Hydroxy 30.1 30.0-80.0 ng/mL XR KNEE 4+ VIEWS BILAT Reviewed date:01/27/2025 08:06:07 AM Interpretation: Performing Lab: Notes/Report: Note See Note [facility], a member of [facility] Patient Name: MARÍA PHILLIPS Date of : 1965 Reason for Exam: ilateral knee pain Exam Date: 01/22/2025 [id number] EST Report Status: Final Ordering Provider: CELIA ROMO PCP: IKER ROBLERO 4 views bilateral knees obtained today including [...] Interpretation: Performing Lab: Notes/Report: Note See Note [facility], a member of [employer] Patient Name: MARÍA PHILLIPS Date of : 1965 Reason for Exam: DYSPHAGIA Exam Date: 12/26/2024 [id number] EST Report Status: Final Ordering Provider: BARBARA MORRISSEY PCP: IKER ROBLERO FINDINGS: Double contrast esophagram performed. COMPARISON: Esophagr am March 04, 2022 HISTORY: Patient is a 59-year-old female with history of globus sensation. Epigastric pain. Marketing Sales Representative radiographs: 1 view chest radiograph demonstrates cardiac [...] Signed Date: 12/27/2024 08:28 ET Workstation ID: [id number] Transcribed By: Self Edit Transcribed Date: 12/26/2024 13:36 ET Resident/PA/WATCH CRYSTAL EDGE GRINDER: Lidia Escamilla HEMOGLOBIN A1C Reviewed date:05/06/2025 03:59:06 PM Interpretation: Performing Lab: Notes/Report: Hemoglobin A1C 5.7 <6.5 % Mean Bld Glu Estim. 117 FERRITIN Reviewed date:03/05/2025 07:31:08 PM Interpretation: Performing Lab: Notes/Report: Ferritin 58 8-252 ng/mL FOLATE Reviewed date:03/05/2025 07:31:03 PM Interpretation: Performing Lab: Notes/Report: Folate 7.2 2.8-17.0 ng/ml IRON AND TIBC Reviewed date:03/05/2025 07:31:56 PM Interpretation: Performing Lab: Notes/Report: Iron 71 40-150 mcg/dL TIBC 417 250-450 mcg/dL Iron Saturation 17 15-50 % VITAMIN B12 Reviewed date:03/05/2025 07:31:11 PM Interpretation: Performing Lab: Notes/Report: Vitamin B-12 463 250-900 pcg/mL COMPREHENSIVE METABOLIC PANE L Reviewed date:03/05/2025 07:31:45 [...] Performing Lab: Notes/Report: Magnesium 2.3 1.9-2.6 mg/dL CT SINUSES WO CONTRAST Reviewed date:01/24/2025 12:18:38 PM Interpretation: Performing Lab: Notes/Report: Note See Note [facility], a member of [employer] Patient Name: MARÍA PHILLIPS Date of : 1965 Reason for Exam: deviated septum,sinonasal polyp Exam Date: 01/24/2025 [id number] EST Report Status: Final Ordering Provider: EDMUND [...] s are clear. There is a small mucous [...] FINAL REPOR T -------- Dictated By: Hever Hutton Dictated Date: 01/24/2025 08:15 ET Assigned Physician: Hever Hutton Reviewed and Electronically Signed By: Hever Hutton Signed Date: 01/24/2025 08:42 ET Workstation ID: [id number] Transcribed By: Self Edit Transcribed Date: 01/24/2025 08:15 ET US HEAD NECK SOFT TISSUE Reviewed date:01/24/2025 01:16:29 PM Interpretation: Performing Lab: Notes/Report: Note See Note [facility], a member of [employer] Patient Name: MARÍA PHILLIPS Date of : 1965 Reason for Exam: cervicalgia Exam Date: 01/24/2025 [id number] EST Report Status: Final Ordering Provider: CHINO YBARRA PCP: IKER ROBLERO EXAMINATION: US , RIGHT NECK CLINICAL INFORMATION: [...] smooth. Left lobe echogenicity: Homogeneous Left lobe vascularit y: Normal Isthmus [...] Signed Date: 01/24/2025 08:00 ET Workstation ID: [id number] Transcribed By: Self Edit Transcribed Date: 01/24/2025 07:55 ET Reason For Referral Reason [facility] Diagnosis 1 Shoulder pain, unspe cified chronicity, unspecified laterality (M25.519) Referral Organization [facility] [address] Referring Provider First Name IKER Referring Provider Last Name ANNIKA Referring Provider Speciality Preventive Medicine Referred Provider Specialty Orthopedic S urgery General Notes Letitia Cox 025 10:47:57 AM > Referral faxed over to [facility] for Bilateral shoulder pain P. [phone] Referral Priority Routine Reason Sleep Medicine [facility]; sleep study; loud snoring Diagnosis 1 Loud snoring (R06.83 ) Referral Organization [facility] [address] Referring Provider First Name IKER Referring Provider Last Name WASHINGTON Referring Provider Speciality Preventive Medicine Referred Provider [facility] General Notes [address] [place] [address] Faustino. [address] [place] (p) [phone], (f) [phone] Clinical Notes Maryann Cox 02:10:39 PM > I called the office and they informed me that they had reached out to the patient and are just waiting for a callback to schedule an appt Referral Priority Routine Reason pain management : ri ght rib pain Diagnosis 1 Rib pain on right si de (R07.81) Referral Organization [facility] [address] Referring Provider First Name IKER Referring Provider Last Name WASHINGTON Referring Provider [facility] Preventive Medicine Referred Provider Specialty Pain Medicin e Clinical Notes Zoila Narayanan 04/25 09:57:57 AM > Family Physiatry, Address: [address] [place] [address], , Fax number: , Maryann Cox 06/17/2025 02:17:36 PM > The patient was scheduled for 06/05 but she no showed and has not rescheduled yet Referral Priority Routine Reason [facility]; easy bruising Diagnosis 1 Easy bruising (R23.3 ) Referral Organization [facility] [address] Referring Provider First Name IKER Referring Provider Last Name WASHINGTON Referring Provider [facility] Preventive Medicine Referred Provider Specialty Dermatology General Notes [address] [facility] [address]. 106, (p) [phone], (f) [phone] Clinical Notes Caren Narayanan 08:43:03 AM > referral faxed with notes Referral Priority Routine Reason Dr. Hoffman Diagnosis 1 Pulmonary nodule (R9 1.1) Diagnosis 2 Centrilobular emphys christine (J43.2) Referral Organization [facility] [address] Referring Provider First Name IKER Referring Provider Last Name WASHINGTON Referring Provider Speciality Preventive Medicine Referred Provider Specialty Pulmonology General Notes XAVIER VILLANUEVA 06/09 08:34:07 AM > Referral faxed, Dr Hoffman - Pulmonology and Sleep Medicine, [address] [place] [address], , Clinical Notes Maryann Cox 10/2025 02:17:04 PM > The patient was scheduled for 06/05 but she no showed and has not rescheduled yet Referral Priority Routine Reason [facility] Diagnosis 1 Chronic pain syndrom e (G89.4) Diagnosis 2 Cervical pain (M54.2 ) Referral Organization [facility] [address] Referring Provider First Name IKER Referring Provider Last Name ANNIKA Referring Provider Speciality Preventive Medicine Referred Provider Specialty Orthopedic S urgery General Notes XAVIER VILLANUEVA 06/26 08:13:11 AM > Referral has been faxed, [facility], [address] [place] [phone], , Clinical Notes Maryann Cox 02:25:30 PM > I called the office, and they informed me they had reached out to the patient multiple times with no response. I then spoke with the patient, who stated she was not aware a referral had been sent. She said she will call the office back Referral Priority Stat Medications Medication SIG (Take, Route, Fr equency, Duration) Notes Start Date End Date Status ZyrTEC 10 MG 1 tablet Orally Once a day Active Gabapentin 300 MG 1 capsule Orally 3 t imes a day; Duration: 30 days Active LORazepam 0.5 MG 1 tablet at bedtime as needed Orally 3 times a day Active Problems Problem Type SNOMED Code ICD Code Onset Dates Problem Status W/U Status Risk Notes Problem Hyperkalemia (64229950) Hyperkalemia (E87.5) Active confirmed Problem Chronic pain syndrome (321032363) Chronic pain syndrome (G89.4) Active confirmed Problem Centrilobular emphysema (06093047) Centrilobular emphysema (J43.2) Active confirmed Problem Pulmonary nodule (973947508) Pulmonary nodule (R91.1) Active confirmed Problem Breathing painful (57142162) Rib pain on right side (R07.81) Active confirmed Problem Tremor (95020748) Tremor (R25.1) Active confirm ed Problem Chronic fatigue syndrome (95241297) Chronic fatigue (R53.82) Active confirmed Problem Paresthesia (finding) (84337321) Paresthesias (R20.2) Active confirmed Problem Cervical pain (13107494) Cervical pain (M54.2) Active confirmed Problem Mixed anxiety and depressive disorder (386415084) Depression with anxiety (F41.8) Active confirmed Problem 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 Problem Inactive tuberculosis (finding) (79912057) History of latent tuberculosis (Z86.15) Active confirmed Problem Rheumatoid arthritis (16138210) Rheumatoid arthritis involving multiple sites, unspecified whether rheumatoid factor present (M06.9) Active confirmed Problem Rheumatoid arthritis (47446980) Rheumatoid arthritis involving multiple sites with positive rheumatoid factor (M05.79) Active confirmed Problem Lymphadenopathy (54472487) Lymphadenopathy, axillary (R59.0) Active confirmed Problem Cervical spondylosis (475151741) Cervical spondylosis (M47.812) Active confirmed Problem General weakness (42249175) Generalized weakness (R53.1) Active confirmed Problem 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 Vital Signs Heart Rate 92 /min 06/18/2025 Oximetry 97 % 06/18/2025 Blood pressure diastolic 84 mm Hg 06/18/2025 Height 61 in 06/18/2025 Blood pressure systolic 130 mm Hg 06/18/2025 Weight 162.2 lbs 06/18/2025 BMI 30.64 kg/m2 06/18/2025 Encounters Encounter Location Date Provider Diagnosis [facility] [address] [address] 10/28/2024 IKER ROBLERO Rheumatoid arthritis involving multiple sites, unspecified whether rheumatoid factor present M06.9 ; Tremor R25.1 ; Slipped rib syndrome M94.0 ; History of latent tuberculosis Z86.15 ; Depression with anxiety F41.8 and Rock's disease E06.3 [facility] [address] [address] 11/18/2024 IKER ROBLERO Tremor R25.1 ; Cervi veronica spondylosis M47.812 ; Rock's disease E06.3 ; Pain in right arm M79.601 ; Pain in left arm M79.602 ; History of recent fall Z91.81 ; Rheumatoid arthritis involving multiple sites with positive rheumatoid factor M05.79 ; Slipped rib syndrome M94.0 and Depression with anxiety F41.8 [facility] [address] [address] 01/22/2025 CHINO BIRKS Neck pain on right s angela M54.2 ; Rheumatoid arthritis involving multiple sites with positive rheumatoid factor M05.79 ; Slipped rib syndrome M94.0 ; Rock's disease E06.3 and Depression with anxiety F41.8 [facility] [address] [address] 02/03/2025 CHINO BIRKS Lymphadenopathy, axillary R59.0 ; Rheumatoid arthritis involving multiple sites, unspecified whether rheumatoid factor present M06.9 ; Rock's disease E06.3 ; Slipped rib syndrome M94.0 ; Anxiety, generalized F41.1 and Tendon calcification M65.80 [facility] [address] [address] 03/05/2025 IKER ROBLERO Rib pain on right si de R07.81 ; Annual physical exam Z00.00 ; Chronic fatigue R53.82 ; Hyperkalemia E87.5 ; Slipped rib syndrome M94.0 ; Depression with anxiety F41.8 and Rheumatoid arthritis involving multiple sites with positive rheumatoid factor M05.79 [facility] [address] [address] 03/21/2025 IKER ROBLERO Heart palpitations R00.2 ; Weakness R53.1 and Dyspnea on exertion R06.09 [facility] [address] [address] 04/23/2025 IKER LEDESMAHAM Depression with anxi ety F41.8 ; Heavy alcohol use F10.90 ; Chronic pain syndrome G89.4 ; Slipped rib syndrome M94.0 ; Rheumatoid arthritis involving multiple sites with positive rheumatoid factor M05.79 ; Pulmonary nodule R91.1 ; History of latent tuberculosis Z86.15 and Loud snoring R06.83 [facility] [address] [address] 05/05/2025 IKER LEDESMAHAM Spontaneous ecchymos es R23.3 ; Skin tear of left upper extremity S41.112A ; Irregular bowel habits R19.8 ; Depression with anxiety F41.8 ; Chronic pain syndrome G89.4 and Rheumatoid arthritis involving multiple sites with positive rheumatoid factor M05.79 [facility] [address] [place] [address] 06/18/2025 IKER ROBLERO Chronic pain syndrom e G89.4 ; Cervical pain M54.2 and Recurrent low back pain M54.50 [facility] [address] [place] [address] 10/29/2024 IKER LEDESMAHAM [facility] [address] [place] [address] 11/04/2024 IKER LEDESMAHAM [facility] [address] [place] [address] 11/07/2024 IKER LEDESMAHAM [facility] [address] [place] [address] 11/19/2024 IKER LEDESMAHAM [facility] [address] [place] [address] 12/03/2024 IKER LEDESMAHAM [facility] [address] [place] [address] 12/13/2024 IKER LEDESMAHAM [facility] [address] [place] [address] 12/13/2024 IKER ROBLERO Generalized weakness R53.1 and Paresthesias R20.2 [facility] [address] [place] [address] 12/16/2024 IKER LEDESMAHAM [facility] [address] [place] [address] 12/26/2024 IKER LEDESMAHAM [facility] [address] [place] [address] 12/31/2024 IKER LEDESMAHAM [facility] [address] [place] [address] 01/02/20[address]KER ROBLERO [facility] [address] [place] [address] 01/07/2025 IKER LEDESMAHAM [facility] [address] [place] [address] 01/21/2025 IKER ROBLERO [facility] [address] [place] [address] 01/24/2025 IKER WASHINGTON [facility] [address] [place] [address] 02/03/2025 IKER WASHINGTON [facility] [address] [place] [address] 02/03/2025 IKER WASHINGTON [facility] [address] [place] [address] 02/10/2025 IKER WASHINGTON [facility] [address] [place] [address] 03/05/2025 IKER WASHINGTON Chronic fatigue R53. 82 ; Elevated lipids E78.5 ; Anemia due to vitamin B12 deficiency, unspecified B12 deficiency type D51.9 and Vitamin D deficiency E55.9 [facility] [address] [place] [address] 03/05/2025 IKER WASHINGTON [facility] [address] [place] [address] 03/05/2025 IKER WASHINGTON [facility] [address] [place] [address] 03/05/2025 IKER WASHINGTON [facility] [address] [place] [address] 03/21/2025 IKER WASHINGTON [facility] [address] [place] [address] 03/24/2025 IKER WASHINGTON [facility] [address] [place] [address] 04/22/2025 IKER WASHINGTON [facility] [address] [place] [address] 04/25/2025 IKER WASHINGTON [facility] [address] [place] [address] 05/01/2025 IKER WASHINGTON [facility] [address] [place] [address] 05/05/2025 IKER WASHINGTON [facility] [address] [place] [address] 05/06/2025 IKER WASHINGTON [facility] [address] [place] [address] 05/13/2025 IKER WASHINGTON [facility] [address] [place] [address] 05/13/2025 IKER WASHINGTON [facility] [address] [place] [address] 06/03/2025 IKER WASHINGTON [facility] [address] [place] [address] 06/18/2025 IKER WASHINGTON [facility] [address] [place] [address] 06/19/2025 IKER WASHINGTON Cervical pain M54.2 ; Cervical spondylosis M47.812 and Chronic pain syndrome G89.[address] [facility] [address] [place] [address] 06/25/2025 IKER WASHINGTON [facility] [address] [place] [address] 12/09/2024 IKER WASHINGTON [facility] [address] [place] [address] 12/13/2024 IKER WASHINGTON [facility] [address] [place] [address] 12/14/2024 IKER WASHINGTON [facility] [address] [place] [address] 12/14/2024 IKER WASHINGTON [facility] [address] [place] [address] 12/15/2024 IKER WASHINGTON [facility] [address] [place] [address] 12/18/2024 IKER WASHINGTON [facility] [address] [place] [address] 01/01/2025 [facility] [address] [place] [address] 01/21/2025 [facility] [address] [place] [address] 01/27/2025 IKER WASHINGTON Breast cancer screen ing by mammogram Z12.31 [facility] [address] [place] [address] 03/21/2025 IKER WASHINGTON [facility] [address] [place] [address] 04/30/2025 IKER ANNIKA [facility] [address] [place] [address] 05/01/2025 IKER ANNIKA [facility] [address] [place] [address] 05/01/2025 IKER ANNIKA [facility] [address] [address] 06/06/2025 IKER ANNIKA [facility] [address] [place] [address] 06/09/2025 IKER ANNIKA [facility] [address] [address] 06/14/2025 IKER ANNIKA [facility] [address] [facility] [address] [place] [address] 06/20/2025 IKER ANNIKA [facility] [address] [address] 06/23/2025 IKER ANNIKA [facility] [address] [address] 06/30/2025 IKER ANNIKA Assessments Encounter Date Diagnosis (ICD Code) Assessment [...] Patient reports history of RA. Follows with river captain Dr. Clark out of [place]. Has been treated previously with Humira, Enbrel, [...] was diagnosed by Dr. Dubon out of [place], [place]. Taking methocarbamol 750 mg 3 times [...] reviewed. Dictation completed with the use of iubenda voice recognition software, prone to medical misidentifications [...] Patient reports history of RA. Follows with river captain Dr. Clark out of [place]. Has been treated previously with Humira, Enbrel, [...] was diagnosed by Dr. Dubon out of [place], [place]. Taking methocarbamol 750 mg 3 times [...] reviewed. Dictation completed with the use of iubenda voice recognition software, prone to medical misidentifications [...] for 11/20/2024. #Recent fall: Patient seen at [facility] ED 11/02/2024 s/p fall at work. [...] diffuse joint pain and fatigue. Follows with river captain Dr. Clark out of [place], records requested and not yet available for my review. 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 States this was diagnosed by Dr. Dubon out of [place], [place]. Taking methocarbamol 750 mg 3 times [...] reviewed. Dictation completed with the use of iubenda voice recognition software, prone to medical misidentifications [...] for 11/20/2024. #Recent fall: Patient seen at [facility] ED 11/02/2024 s/p fall at work. [...] diffuse joint pain and fatigue. Follows with river captain Dr. Clark out of [place], records requested and not yet available for my review. 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 States this was diagnosed by Dr. Dubon out of [place], [place]. Taking methocarbamol 750 mg 3 times [...] reviewed. Dictation completed with the use of iubenda voice recognition software, prone to medical misidentifications [...] was diagnosed by Dr. Dubon out of [place], [place]. Taking methocarbamol 750 mg 3 times [...] Dictation was accomplished with the use of iubenda voice recognition software, which is prone to [...] was diagnosed by Dr. Dubon out of [place], [place]. Taking methocarbamol 750 mg 3 times [...] Dictation was accomplished with the use of iubenda voice recognition software, which is prone to [...] was diagnosed by Dr. Dubon out of [place], [place]. Taking methocarbamol 750 mg 3 times [...] Dictation was accomplished with the use of iubenda voice recognition software, which is prone to [...] was diagnosed by Dr. Dubon out of [place], [place]. Taking methocarbamol 750 mg 3 times [...] Dictation was accomplished with the use of iubenda voice recognition software, which is prone to [...] rib syndrome: Follows with Dr. Dubon with [facility]. Underwent repair 12/17/2024. #Ventral hernia: Surgical history [...] arthritis: + Rheumatoid factor (152). Follows with river captain Dr. Olaf Kaplan out of [place]. Follow-up labs including CAMILO, ESR/CRP, and comprehensive [...] Follows with psychiatric provider Clarice Lara with [facility]. Taking clonazepam 0.5 mg once daily with [...] dysfunction. #Hyperkalemia: Patient reports she was at [facility] ED recently at which time her [...] reviewed. Dictation completed with the use of iubenda voice recognition software, prone to medical misidentifications [...] rib syndrome: Follows with Dr. Dubon with [facility]. Underwent repair 12/17/2024. #Ventral hernia: Surgical history [...] arthritis: + Rheumatoid factor (152). Follows with river captain Dr. Olaf Kaplan out of [place]. Follow-up labs including CAMILO, ESR/CRP, and comprehensive [...] Follows with psychiatric provider Clarice Lara with [facility]. Taking clonazepam 0.5 mg once daily with [...] dysfunction. #Hyperkalemia: Patient reports she was at [facility] ED recently at which time her [...] reviewed. Dictation completed with the use of iubenda voice recognition software, prone to medical misidentifications [...] reviewed. Dictation completed with the use of iubenda voice recognition software, prone to medical misidentifications [...] reviewed. Dictation completed with the use of iubenda voice recognition software, prone to medical misidentifications [...] ER follow-up hospital follow-up. María presented to [facility] ED 04/19/2025 with chief complaint of [...] taking any pain medication. Previously followed with transportation equipment painter Dr. Triveid who provided steroid injections. Historically the patient [...] with added opioid use. WIll refer to transportation equipment painter with goal of establishing safe pain management regimen. #RA: Follows with Olaf Kaplan MD out of [place]. Discussed possibility of chronic pain being related [...] reviewed. Dictation completed with the use of iubenda voice recognition software, prone to medical misidentifications [...] ER follow-up hospital follow-up. María presented to [facility] ED 04/19/2025 with chief complaint of [...] taking any pain medication. Previously followed with transportation equipment painter Dr. Trivedi who provided steroid injections. Historically [...] with added opioid use. WIll refer to transportation equipment painter with goal of establishing safe pain management regimen. #RA: Follows with Olaf Kaplan MD out of [place]. Discussed possibility of chronic pain being related [...] reviewed. Dictation completed with the use of iubenda voice recognition software, prone to medical misidentifications [...] She is encouraged to contact rheum (Dr. Olaf Kaplan) to discuss involvement of RA medication. On review of most recent CBC, RBC mildly low and MCV high. Will order CBC, CMP, B12, and folate for continued evaluation. Patient requesting dermatology referral, referral provided. #Irregular bowel movements: Patient requesting urgent colonoscopy per recommendation of [facility] surgeon Jewel Dubon. On review of Dr. [...] gabapentin TID without symptom improvement. Follows with transportation equipment painter Dr. Trivedi. Historically the patient has tried [...] reviewed. Dictation completed with the use of iubenda voice recognition software, prone to medical misidentifications [...] She is encouraged to contact rheum (Dr. Olaf Kaplan) to discuss involvement of RA medication. On review of most recent CBC, RBC mildly low and MCV high. Will order CBC, CMP, B12, and folate for continued evaluation. Patient requesting dermatology referral, referral provided. #Irregular bowel movements: Patient requesting urgent colonoscopy per recommendation of [facility] surgeon Jewel Dubon. On review of Dr. [...] gabapentin TID without symptom improvement. Follows with transportation equipment painter Dr. Trivedi. Historically the patient has tried [...] reviewed. Dictation completed with the use of iubenda voice recognition software, prone to medical misidentifications and grammatical errors. All errors are unintentional. Although the practitioner does try to identify and correct errors, some may be present. Please do not hesitate to contact the practitioner for clarification. Total time was 60 minutes spent with >50% on coordination of care and patient education. 06/18/2025 Chronic pain syndrome (ICD-10 - G89.4) María is a 59-year-old female with a PMH of RA, slipped rib syndrome, chronic pain that presents today for evaluation of back pain. #Chronic pain: Patient continues to struggle with ongoing chronic pain. Has known degenerative changes of the spine. Per chart review most recent XR lumbar spine obtained 11/02/2024 which reveals multilevel disc and endplate degenerative changes. MRI of the cervical spine obtained 04/18/2024 reveals multilevel degenerative changes and severe multilevel neural foraminal stenosis due to nonconvertible spurring - Dr. Leon recommending cervical spine fusion - patient would like second opinion. MRI lumbar spine obtained 04/18/2024 reveals mild multilevel degenerative changes. Currently, taking gabapentin TID without significant symptom improvement. Follows with transportation equipment painter Dr. Trivedi, orthopedic provider Nichelle Carrillo PA-C and neurosurgeon Dr. Leon. Historically the patient has tried numerous nonopioid pain management medications including but not limited to ibuprofen, meloxicam, mirtazapine, baclofen, tizanidine, cyclobenzaprine, Tylenol, topical lidocaine patches, and Journavx - all of which are reported to be not helpful. Currently receiving steroid injections which she also does not find helpful. Given ongoing symptoms of pain, weakness, and tremors will update MRI of cervical and lumbar spine and refer to Dr. Montero. Patient encouraged to follow up with neurology tomorrow as scheduled. Of note: This is a patient that presents with a myriad of complaints at each visit - most significantly her chronic pain. She follows with numerous specialists including but not limited to orthopedics, neurology, GI, psychiatry, rheumatology, thoracic surgery, etc. She has had extensive testing including XRs, EMGs, CT scans, and MRIs. Furthermore, she has had comprehensive laboratory evaluation. Unfortunately, with the diagnostics we have, and the interventions that have been tried thus far, the patient has not yet felt her symptoms are being adequately addressed/treated. Discussed at length and provided reassurance that [...] reviewed. Dictation completed with the use of iubenda voice recognition software, prone to medical misidentifications and grammatical errors. All errors are unintentional. Although the practitioner does try to identify and correct errors, some may be present. Please do not hesitate to contact the practitioner for clarification. Total time was 60 minutes spent with >50% on coordination of care and patient education. 06/18/2025 Cervical pain (ICD-10 - M54.2) María is a 59-year-old female with a PMH of RA, slipped rib syndrome, chronic pain that presents today for evaluation of back pain. #Chronic pain: Patient continues to struggle with ongoing chronic pain. Has known degenerative changes of the spine. Per chart review most recent XR lumbar spine obtained 11/02/2024 which reveals multilevel disc and endplate degenerative changes. MRI of the cervical spine obtained 04/18/2024 reveals multilevel degenerative changes and severe multilevel neural foraminal stenosis due to nonconvertible spurring - Dr. Leon recommending cervical spine fusion - patient would like second opinion. MRI lumbar spine obtained 04/18/2024 reveals mild multilevel degenerative changes. Currently, taking gabapentin TID without significant symptom improvement. Follows with transportation equipment painter Dr. Trivedi, orthopedic provider Nichelle Carrillo PA-C and neurosurgeon Dr. Leon. Historically the patient has tried numerous nonopioid pain management medications including but not limited to ibuprofen, meloxicam, mirtazapine, baclofen, tizanidine, cyclobenzaprine, Tylenol, topical lidocaine patches, and Journavx - all of which are reported to be not helpful. Currently receiving steroid injections which she also does not find helpful. Given ongoing symptoms of pain, weakness, and tremors will update MRI of cervical and lumbar spine and refer to Dr. Montero. Patient encouraged to follow up with neurology tomorrow as scheduled. Of note: This is a patient that presents with a myriad of complaints at each visit - most significantly her chronic pain. She follows with numerous specialists including but not limited to orthopedics, neurology, GI, psychiatry, rheumatology, thoracic surgery, etc. She has had extensive testing including XRs, EMGs, CT scans, and MRIs. Furthermore, she has had comprehensive laboratory evaluation. Unfortunately, with the diagnostics we have, and the interventions that have been tried thus far, the patient has not yet felt her symptoms are being adequately addressed/treated. Discussed at length and provided reassurance that [...] reviewed. Dictation completed with the use of iubenda voice recognition software, prone to medical misidentifications and grammatical errors. All errors are unintentional. Although the practitioner does try to identify and correct errors, some may be present. Please do not hesitate to contact the practitioner for clarification. Total time was 60 minutes spent with >50% on coordination of care and patient education. 06/19/2025 Cervical pain (ICD-10 - M54.2) 06/19/2025 Cervical spondylosis (ICD-10 - M47.812) 03/05/2025 Elevated lipids (ICD-10 - E78.5) 06/18/2025 Recurrent low back pain (ICD-10 - M54.50) María is a 59-year-old female with a PMH of RA, slipped rib syndrome, chronic pain that presents today for evaluation of back pain. #Chronic pain: Patient continues to struggle with ongoing chronic pain. Has known degenerative changes of the spine. Per chart review most recent XR lumbar spine obtained 11/02/2024 which reveals multilevel disc and endplate degenerative changes. MRI of the cervical spine obtained 04/18/2024 reveals multilevel degenerative changes and severe multilevel neural foraminal stenosis due to nonconvertible spurring - Dr. Leon recommending cervical spine fusion - patient would like second opinion. MRI lumbar spine obtained 04/18/2024 reveals mild multilevel degenerative changes. Currently, taking gabapentin TID without significant symptom improvement. Follows with transportation equipment painter Dr. Trivedi, orthopedic provider Nichelle Carrillo PA-C and neurosurgeon Dr. Leon. Historically the patient has tried numerous nonopioid pain management medications including but not limited to ibuprofen, meloxicam, mirtazapine, baclofen, tizanidine, cyclobenzaprine, Tylenol, topical lidocaine patches, and Journavx - all of which are reported to be not helpful. Currently receiving steroid injections which she also does not find helpful. Given ongoing symptoms of pain, weakness, and tremors will update MRI of cervical and lumbar spine and refer to Dr. Montero. Patient encouraged to follow up with neurology tomorrow as scheduled. Of note: This is a patient that presents with a myriad of complaints at each visit - most significantly her chronic pain. She follows with numerous specialists including but not limited to orthopedics, neurology, GI, psychiatry, rheumatology, thoracic surgery, etc. She has had extensive testing including XRs, EMGs, CT scans, and MRIs. Furthermore, she has had comprehensive laboratory evaluation. Unfortunately, with the diagnostics we have, and the interventions that have been tried thus far, the patient has not yet felt her symptoms are being adequately addressed/treated. Discussed at length and provided reassurance that [...] reviewed. Dictation completed with the use of iubenda voice recognition software, prone to medical misidentifications and grammatical errors. All errors are unintentional. Although the practitioner does try to identify and correct errors, some may be present. Please do not hesitate to contact the practitioner for clarification. Total time was 60 minutes spent with >50% on coordination of care and patient education. 05/05/2025 Irregular bowel habits (ICD-10 - R19.8) [...] She is encouraged to contact rheum (Dr. Olaf Kaplan) to discuss involvement of RA medication. On review of most recent CBC, RBC mildly low and MCV high. Will order CBC, CMP, B12, and folate for continued evaluation. Patient requesting dermatology referral, referral provided. #Irregular bowel movements: Patient requesting urgent colonoscopy per recommendation of [facility] surgeon Jewel Dubon. On review of Dr. [...] gabapentin TID without symptom improvement. Follows with transportation equipment painter Dr. Trivedi. Historically the patient has tried [...] reviewed. Dictation completed with the use of iubenda voice recognition software, prone to medical misidentifications [...] reviewed. Dictation completed with the use of iubenda voice recognition software, prone to medical misidentifications [...] ER follow-up hospital follow-up. María presented to [facility] ED 04/19/2025 with chief complaint of [...] taking any pain medication. Previously followed with transportation equipment painter Dr. Trivedi who provided steroid injections. Historically [...] with added opioid use. WIll refer to transportation equipment painter with goal of establishing safe pain management regimen. #RA: Follows with Olaf Kaplan MD out of [place]. Discussed possibility of chronic pain being related [...] reviewed. Dictation completed with the use of iubenda voice recognition software, prone to medical misidentifications [...] rib syndrome: Follows with Dr. Dubon with [facility]. Underwent repair 12/17/2024. #Ventral hernia: Surgical history [...] arthritis: + Rheumatoid factor (152). Follows with river captain Dr. Olaf Kaplan out of [place]. Follow-up labs including CAMILO, ESR/CRP, and comprehensive [...] Follows with psychiatric provider Clarice Lara with [facility]. Taking clonazepam 0.5 mg once daily with [...] dysfunction. #Hyperkalemia: Patient reports she was at [facility] ED recently at which time her [...] reviewed. Dictation completed with the use of iubenda voice recognition software, prone to medical misidentifications [...] was diagnosed by Dr. Dubon out of [place], [place]. Taking methocarbamol 750 mg 3 times [...] Dictation was accomplished with the use of iubenda voice recognition software, which is prone to [...] was diagnosed by Dr. Dubon out of [place], [place]. Taking methocarbamol 750 mg 3 times [...] Dictation was accomplished with the use of iubenda voice recognition software, which is prone to [...] for 11/20/2024. #Recent fall: Patient seen at [facility] ED 11/02/2024 s/p fall at work. [...] diffuse joint pain and fatigue. Follows with river captain Dr. Clark out of [place], records requested and not yet available for my review. 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 States this was diagnosed by Dr. Dubon out of [place], [place]. Taking methocarbamol 750 mg 3 times [...] reviewed. Dictation completed with the use of iubenda voice recognition software, prone to medical misidentifications [...] Patient reports history of RA. Follows with river captain Dr. Clark out of [place]. Has been treated previously with Humira, Enbrel, [...] was diagnosed by Dr. Dubon out of [place], [place]. Taking methocarbamol 750 mg 3 times [...] reviewed. Dictation completed with the use of iubenda voice recognition software, prone to medical misidentifications [...] for 11/20/2024. #Recent fall: Patient seen at [facility] ED 11/02/2024 s/p fall at work. [...] diffuse joint pain and fatigue. Follows with river captain Dr. Clark out of [place], records requested and not yet available for my review. 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 States this was diagnosed by Dr. Dubon out of [place], [place]. Taking methocarbamol 750 mg 3 times [...] Patient reports history of RA. Follows with river captain Dr. Clark out of [place]. Has been treated previously with Humira, Enbrel, [...] was diagnosed by Dr. Dubon out of [place], [place]. Taking methocarbamol 750 mg 3 times [...] reviewed. Dictation completed with the use of iubenda voice recognition software, prone to medical misidentifications [...] 0.58 within normal limits. ESR 4. Negative CAMIOL. Continue meloxicam 15 mg tablet daily for pain. Continue follow-up with rheumatology. 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 Dubon out of [place], [place]. Taking methocarbamol 750 mg 3 times [...] Dictation was accomplished with the use of iubenda voice recognition software, which is prone to [...] was diagnosed by Dr. Dubon out of [place], [place]. Taking methocarbamol 750 mg 3 times [...] Dictation was accomplished with the use of iubenda voice recognition software, which is prone to [...] rib syndrome: Follows with Dr. Dubon with [facility]. Underwent repair 12/17/2024. #Ventral hernia: Surgical history [...] arthritis: + Rheumatoid factor (152). Follows with river captain Dr. Olaf Kaplan out of [place]. Follow-up labs including CAMILO, ESR/CRP, and comprehensive [...] Follows with psychiatric provider Clarice Lara with [facility]. Taking clonazepam 0.5 mg once daily with [...] dysfunction. #Hyperkalemia: Patient reports she was at [facility] ED recently at which time her [...] reviewed. Dictation completed with the use of iubenda voice recognition software, prone to medical misidentifications [...] She is encouraged to contact rheum (Dr. Olaf Kaplan) to discuss involvement of RA medication. On review of most recent CBC, RBC mildly low and MCV high. Will order CBC, CMP, B12, and folate for continued evaluation. Patient requesting dermatology referral, referral provided. #Irregular bowel movements: Patient requesting urgent colonoscopy per recommendation of [facility] surgeon Jewel Dubon. On review of Dr. [...] gabapentin TID without symptom improvement. Follows with transportation equipment painter Dr. Trivedi. Historically the patient has tried [...] reviewed. Dictation completed with the use of iubenda voice recognition software, prone to medical misidentifications [...] ER follow-up hospital follow-up. María presented to [facility] ED 04/19/2025 with chief complaint of [...] taking any pain medication. Previously followed with transportation equipment painter Dr. Trivedi who provided steroid injections. Historically [...] with added opioid use. WIll refer to transportation equipment painter with goal of establishing safe pain management regimen. #RA: Follows with Olaf Kaplan MD out of [place]. Discussed possibility of chronic pain being related [...] reviewed. Dictation completed with the use of iubenda voice recognition software, prone to medical misidentifications and grammatical errors. All errors are unintentional. Although the practitioner does try to identify and correct errors, some may be present. Please do not hesitate to contact the practitioner for clarification. Total time was 60 minutes spent with >50% on coordination of care and patient education. 06/19/2025 Chronic pain syndrome (ICD-10 - G89.4) 05/05/2025 Chronic pain syndrome (ICD-10 - G89.4) [...] She is encouraged to contact rheum (Dr. Olaf Kaplan) to discuss involvement of RA medication. On review of most recent CBC, RBC mildly low and MCV high. Will order CBC, CMP, B12, and folate for continued evaluation. Patient requesting dermatology referral, referral provided. #Irregular bowel movements: Patient requesting urgent colonoscopy per recommendation of [facility] surgeon Jewel Dubon. On review of Dr. [...] ribs. Denies SI/HI. Follows with therapist Shlomo Fernadnez once weekly and psychiatric provider Clarice Lara [...] gabapentin TID without symptom improvement. Follows with transportation equipment painter Dr. Trivedi. Historically the patient has tried [...] reviewed. Dictation completed with the use of iubenda voice recognition software, prone to medical misidentifications [...] ER follow-up hospital follow-up. María presented to [facility] ED 04/19/2025 with chief complaint of [...] taking any pain medication. Previously followed with transportation equipment painter Dr. Trivedi who provided steroid injections. Historically [...] with added opioid use. WIll refer to transportation equipment painter with goal of establishing safe pain management regimen. #RA: Follows with Olaf Kaplan MD out of [place]. Discussed possibility of chronic pain being related [...] reviewed. Dictation completed with the use of iubenda voice recognition software, prone to medical misidentifications [...] rib syndrome: Follows with Dr. Dubon with [facility]. Underwent repair 12/17/2024. #Ventral hernia: Surgical history [...] arthritis: + Rheumatoid factor (152). Follows with river captain Dr. Olaf Kaplan out of [place]. Follow-up labs including CAMILO, ESR/CRP, and comprehensive [...] Follows with psychiatric provider Clarice Lara with [facility]. Taking clonazepam 0.5 mg once daily with [...] dysfunction. #Hyperkalemia: Patient reports she was at [facility] ED recently at which time her [...] reviewed. Dictation completed with the use of iubenda voice recognition software, prone to medical misidentifications [...] was diagnosed by Dr. Dubon out of [place], [place]. Taking methocarbamol 750 mg 3 times [...] Dictation was accomplished with the use of iubenda voice recognition software, which is prone to [...] was diagnosed by Dr. Dubon out of [place], [place]. Taking methocarbamol 750 mg 3 times [...] Dictation was accomplished with the use of iubenda voice recognition software, which is prone to [...] for 11/20/2024. #Recent fall: Patient seen at [facility] ED 11/02/2024 s/p fall at work. [...] diffuse joint pain and fatigue. Follows with river captain Dr. Clark out of [place], records requested and not yet available for my review. 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 States this was diagnosed by Dr. Dubon out of [place], [place]. Taking methocarbamol 750 mg 3 times [...] reviewed. Dictation completed with the use of iubenda voice recognition software, prone to medical misidentifications [...] Patient reports history of RA. Follows with river captain Dr. Clark out of [place]. Has been treated previously with Humira, Enbrel, [...] was diagnosed by Dr. Dubon out of [place], [place]. Taking methocarbamol 750 mg 3 times [...] reviewed. Dictation completed with the use of iubenda voice recognition software, prone to medical misidentifications [...] for 11/20/2024. #Recent fall: Patient seen at [facility] ED 11/02/2024 s/p fall at work. [...] diffuse joint pain and fatigue. Follows with river captain Dr. Clark out of [place], records requested and not yet available for my review. 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 States this was diagnosed by Dr. Dbuon out of [place], [place]. Taking methocarbamol 750 mg 3 times [...] reviewed. Dictation completed with the use of iubenda voice recognition software, prone to medical misidentifications [...] Patient reports history of RA. Follows with river captain Dr. Clark out of [place]. Has been treated previously with Humira, Enbrel, [...] was diagnosed by Dr. Dubon out of [place], [place]. Taking methocarbamol 750 mg 3 times [...] reviewed. Dictation completed with the use of iubenda voice recognition software, prone to medical misidentifications [...] was diagnosed by Dr. Dubon out of [place], [place]. Taking methocarbamol 750 mg 3 times [...] Dictation was accomplished with the use of iubenda voice recognition software, which is prone to [...] rib syndrome: Follows with Dr. Dubon with [facility]. Underwent repair 12/17/2024. #Ventral hernia: Surgical history [...] arthritis: + Rheumatoid factor (152). Follows with river captain Dr. Olaf Kaplan out of [place]. Follow-up labs including CAMILO, ESR/CRP, and comprehensive [...] Follows with psychiatric provider Clarice Lara with [facility]. Taking clonazepam 0.5 mg once daily with [...] dysfunction. #Hyperkalemia: Patient reports she was at [facility] ED recently at which time her [...] reviewed. Dictation completed with the use of iubenda voice recognition software, prone to medical misidentifications [...] She is encouraged to contact rheum (Dr. Olaf Kaplan) to discuss involvement of RA medication. On review of most recent CBC, RBC mildly low and MCV high. Will order CBC, CMP, B12, and folate for continued evaluation. Patient requesting dermatology referral, referral provided. #Irregular bowel movements: Patient requesting urgent colonoscopy per recommendation of [facility] surgeon Jewel Dubon. On review of Dr. [...] gabapentin TID without symptom improvement. Follows with transportation equipment painter Dr. Trivedi. Historically the patient has tried [...] reviewed. Dictation completed with the use of iubenda voice recognition software, prone to medical misidentifications [...] ER follow-up hospital follow-up. María presented to [facility] ED 04/19/2025 with chief complaint of [...] taking any pain medication. Previously followed with transportation equipment painter Dr. Trivedi who provided steroid injections. Historically [...] with added opioid use. WIll refer to transportation equipment painter with goal of establishing safe pain management regimen. #RA: Follows with Olaf Kaplan MD out of [place]. Discussed possibility of chronic pain being related [...] reviewed. Dictation completed with the use of iubenda voice recognition software, prone to medical misidentifications [...] ER follow-up hospital follow-up. María presented to [facility] ED 04/19/2025 with chief complaint of [...] taking any pain medication. Previously followed with transportation equipment painter Dr. Trivedi who provided steroid injections. Historically [...] with added opioid use. WIll refer to transportation equipment painter with goal of establishing safe pain management regimen. #RA: Follows with Olaf Kaplan MD out [place]. Discussed possibility of chronic pain being related [...] reviewed. Dictation completed with the use of iubenda voice recognition software, prone to medical misidentifications [...] rib syndrome: Follows with Dr. Dubon with [facility]. Underwent repair 12/17/2024. #Ventral hernia: Surgical history [...] arthritis: + Rheumatoid factor (152). Follows with river captain Dr. Olaf Kaplan out of [place]. Follow-up labs including CAMILO, ESR/CRP, and comprehensive [...] Follows with psychiatric provider Clarice Lara with [facility]. Taking clonazepam 0.5 mg once daily with [...] dysfunction. #Hyperkalemia: Patient reports she was at [facility] ED recently at which time her [...] reviewed. Dictation completed with the use of iubenda voice recognition software, prone to medical misidentifications [...] for 11/20/2024. #Recent fall: Patient seen at [facility] ED 11/02/2024 s/p fall at work. [...] diffuse joint pain and fatigue. Follows with river captain Dr. Clark out of [place], records requested and not yet available for my review. 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 States this was diagnosed by Dr. Dubon out of [place], [place]. Taking methocarbamol 750 mg 3 times [...] reviewed. Dictation completed with the use of iubenda voice recognition software, prone to medical misidentifications [...] for 11/20/2024. #Recent fall: Patient seen at [facility] ED 11/02/2024 s/p fall at work. [...] diffuse joint pain and fatigue. Follows with river captain Dr. Clark out of [place], records requested and not yet available for my review. 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 States this was diagnosed by Dr. Dubon out of [place], [place]. Taking methocarbamol 750 mg 3 times [...] reviewed. Dictation completed with the use of iubenda voice recognition software, prone to medical misidentifications [...] ER follow-up hospital follow-up. María presented to [facility] ED 04/19/2025 with chief complaint of [...] taking any pain medication. Previously followed with transportation equipment painter Dr. Trivedi who provided steroid injections. Historically [...] with added opioid use. WIll refer to transportation equipment painter with goal of establishing safe pain management regimen. #RA: Follows with Olaf Kaplan MD out of [place]. Discussed possibility of chronic pain being related [...] reviewed. Dictation completed with the use of iubenda voice recognition software, prone to medical misidentifications [...] for 11/20/2024. #Recent fall: Patient seen at [facility] ED 11/02/2024 s/p fall at work. [...] diffuse joint pain and fatigue. Follows with river captain Dr. Clark out of [place], records requested and not yet available for my review. 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 States this was diagnosed by Dr. Dubon out of [place], [place]. Taking methocarbamol 750 mg 3 times [...] reviewed. Dictation completed with the use of iubenda voice recognition software, prone to medical misidentifications [...] Previously following with Dr. Dubon out of [place], [place]. Underwent surgical correction RA: +RF - exentsive labs including ESR/CRP, [id number]-[id number] DNA, C3 and C for complement, anti-Bermeo antibodies, anti-B2 antibodies, anti-Lakisha antibodies, creatinine kinase, and anti-SSA/anti-SSB antibodies WNL. Follows with Eduardo out of [place]. Continue meloxicam 15mg. Anxiety: Follows with psychatiric [employer] Cassidy Quiroz. Continue lorazepam 1mg TID as [...] for 11/20/2024. #Recent fall: Patient seen at [facility] ED 11/02/2024 s/p fall at work. [...] diffuse joint pain and fatigue. Follows with river captain Dr. Clark out of [place], records requested and not yet available for my review. 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 States this was diagnosed by Dr. Dubon out of [place], [place]. Taking methocarbamol 750 mg 3 times [...] reviewed. Dictation completed with the use of iubenda voice recognition software, prone to medical misidentifications [...] 10/28/2024 ESR 12/13/2024 Ultrasound : Neck 01/22/2025 MRI : Cervical without Contrast 06/19/20 MRI : Lumbar without contrast 06/19/2025 MRI : Thoracic with Contrast 06/19/2025 EKG 11/18/2024 EKG 03/21/2025 CBC (COMPLETE BLOOD [...] Tissue Head Neck 02/03/2025 Comp. Metabolic Panel [phone] Anti-Mi-2 Ab (RDL)-[id number] 12/13/2024 Anti-Ro (SS-A) Ab (RDL)-[id number] 5 Anti-La (SS-B) Ab (RDL)-057102 5 CREATINE KINASE AND CKMB 12/13/2024 Insurance Providers Payer Name Payer Address Payer Phone Subscriber Number Group Number Insured Name Patient Relationship to Insured Coverage Start Date Coverage End Date [address] [address] [place] [id number] [phone] María Phillips Self - patient is [...]
--- OUTSIDE RECORDS SUMMARY | 2025-07-03 10:49 | XMS_ITS | Patient Health Record ---
Author Organization [facility] Address [address] [place] [address] Care Team Providers Care Pierogi Maker Name Role Phone DUDLEYUlices LINDA Primary Care Provider SharifcarlosHugo brumfield Unavailable [phone] Allergies Allergen (clinical drug ingredient) Drug/Non Drug Allergy documented on EMR Reaction Allergy Type Onset Date Status azithromycin Azithromycin Unknown Drug Allergy A ctive clindamycin Clindamycin Unknown Drug Allergy Act aashish Results Component Value Reference Range Notes XR CERVICAL SPINE 4-5 VIEWS Reviewed date:11/21/2024 07:59:09 AM Interpretation: Performing Lab: Notes/Report: Note See Note [facility], a member of [employer] Patient Name: MARÍA OLSON Date of : 1965 Reason for Exam: OTHER Exam Date: 11/18/2024 [id number] EST Report Status: Final Ordering Provider: IKER [...] to the prior neck CTA. Telerad PA ([id number]) -------- FINAL REPOR T -------- Dictated By: Dayami Walker i Dictated Date: 11/19/2024 13:40 ET Assigned Physician: Dayami Diehl Reviewed and Electronically Signed By: Dayami Diehl Signed Date: 025 13:45 ET Workstation ID: [id number] Transcribed By: Self Edit Transcribed Date: 11/19/2024 13:40 ET CBC With Differential/Platel et-[id number] Reviewed date:07/30/2024 07:54:24 AM Interpretation: Performing Lab:[facility], [address] [place] [address], Phone - [phone], Director - Elsa Notes/Report: WBC 5.4 3.4-10.8 [...] Immature Grans (Abs) 0.0 0.0-0.1 x10E3/uL TSH+Free [id number] Reviewed date:07/30/2024 07:54:27 AM Interpretation: Performing Lab:[facility], [address] [place] [address], Phone - [phone], Director - Jennifery Notes/Report: TSH 0.365 0.450-4.500 uIU/mL T4,Free(Direct) 1.20 0.82-1.77 ng/dL Lipid Panel-[id number] Reviewed date:07/30/2024 03:17:56 PM Interpretation: Performing Lab:[facility], [address] [place] [address], Phone - [phone], Director - dry Notes/Report: Cholesterol, Total 266 100-199 mg/dL Triglycerides 102 0-149 mg/dL HDL Cholesterol 82 >39 mg/dL VLDL Cholesterol Corby 17 5-40 mg/dL LDL Chol Calc ([facility]) 167 0-99 mg/dL Comp. Metabolic Panel (14)-3 Reviewed date:07/30/2024 07:54:38 AM Interpretation: Performing Lab:[facility], [address] [place] [address], Phone - [phone], Director - Jennifery Notes/Report: Glucose 92 70-99 [...] IU/L ALT (SGPT) 23 0-32 IU/L Lipid Panel-[id number] Reviewed date:09/09/2024 12:30:11 PM Interpretation: Performing Lab:[facility], [address] [place] [address], Phone - [phone], Director - Elsa Notes/Report: Cholesterol, Total 269 100-199 mg/dL Triglycerides 73 0-149 mg/dL HDL Cholesterol 96 >39 mg/dL VLDL Cholesterol Corby 12 5-40 mg/dL LDL Chol Calc ([facility]) 161 0-99 mg/dL Reason For Referral Reason Evaluation and manag ement - Dr New Diagnosis 1 Sprain of ribs, init ial encounter (S23.41XA) Referral Organization [facility] Referring Provider First Name LINDA Referring Provider Last Name [facility] Referring Provider Speciality Internal edicine Referred Provider Specialty Physical Med icine General Notes Referral faxed to Raoul ramez Physical Medicine - Office will call patient for scheduling.Bk Latraya 08/21/2024 04:24:37 PM > Referral Priority Routine Reason Evaluation and manag ement Diagnosis 1 Sprain of ribs, init ial encounter (S23.41XA) Referral Organization [facility] Referring Provider First Name LINDA Referring Provider Last Name DUDLEY Referring Provider Speciality Internal edicine Referred Provider Specialty Physical Med icine and Rehabilitation General Notes Referral sent to Srinivas smith Physiatry - Office will call patient for scheduling., Leah Bourgeois 08/27/2024 11:24:16 AM > Referral Priority Routine Reason Evaluation and manag ement Diagnosis 1 Sprain of ribs, init ial encounter (S23.41XA) Referral Organization [facility] Referring Provider First Name LINDA Referring Provider Last Name [facility] Referring Provider Speciality Internal edicine Referred Provider Specialty Pulmonology General Notes Referral sent to Tom angulo Pulmonary - Office will call patient for scheduling.Bk Latraya 08/27/2024 04:11:52 PM > Referral Priority Routine Reason Please evaluate and treat Diagnosis 1 Spondylolisthesis, l umbar region (M43.16) Referral Organization [facility] Referring Provider First Name Hugo Referring Provider Last Name Sherlyn Referred Provider Specialty Orthopedic S urgery General Notes Referral faxed to Dr Clive Ross per patient's request at [phone]., Adelita Cerrato 10/03/2024 11:16:33 AM > Referral [...] W/U Status Risk Notes Problem Autoimmune thyroiditis (04329700) Autoimmune thyroiditis (E06.3) Active confirmed Problem Vitamin deficiency (90869489) Vitamin deficiency, unspecified (E56.9) Active confirmed Problem Mixed hyperlipidemia (477549812) Mixed hyperlipidemia (E78.2) Active confirmed Problem Tobacco user (142168596) Nicotine dependence, cigarettes, uncomplicated (F17.210) Active confirmed Problem Generalized anxiety disorder (25957389) Generalized anxiety disorder (F41.1) Active confirmed Problem Chronic sinusitis (08985963) Chronic sinusitis, unspecified (J32.9) Active confirmed Problem Rheumatoid arthritis (88953621) Other rheumatoid arthritis with rheumatoid factor of unspecified site (M05.80) Active confirmed Problem Acquired spondylolisthesis (251194931) Spondylolisthesis , lumbar region (M43.16) Active confirmed Problem Solitary sacroiliitis (582464587) Sacroiliitis, not elsewhere classified (M46.1) Active confirmed Problem Solitary pulmonary nodule (481320328) Solitary pulmonary nodule (R91.1) Active confirmed Vital Signs Heart Rate 75 /min 09/24/2024 Temperature 97.4 degrees Fahrenheit 09/24/2024 Oximetry 98 % 09/24/2024 Blood pressure diastolic 76 mm Hg 09/24/2024 Height 5'4 in 09/24/2024 Blood pressure systolic 130 mm Hg 09/24/2024 Weight 164 lbs 09/24/2024 BMI 28.15 kg/m2 09/24/2024 Encounters Encounter Location Date Provider Diagnosis [address] [place] [address] 07/29/2024 LINDA KHAN Other rheumatoid arthritis with rheumatoid factor of unspecified site M05.80 ; Latent tuberculosis Z22.7 ; Personal history of COVID-19 Z86.16 ; Generalized anxiety disorder F41.1 ; Nicotine dependence, cigarettes, uncomplicated F17.210 ; Tobacco abuse counseling Z71.6 ; Solitary pulmonary nodule R91.1 ; Autoimmune thyroiditis E06.3 and Acute sinusitis, unspecified J01.[address] [place] [address] 08/16/2024 Ghadeer Mazloum Bilateral temporomandibular joint disorder, unspecified M26.603 ; Chronic sinusitis, unspecified J32.9 and Mixed hyperlipidemia E78.[address] [place] [address] 08/21/2024 LINDA KHAN Sprain of ribs, init ial encounter S23.41XA [address] [place] [address] 09/24/2024 Ghadeer Mazloum Intercostal pain R07 .82 and Sacroiliitis, not elsewhere classified M46.1 [facility] [address] [place] [address] 07/16/2024 [facility] [address] [place] [address] 07/29/2024 [facility] [address] [place] [address] 07/30/2024 [facility] Mixed hyperlipidemia E78.2 [facility] [address] [place] [address] 08/07/2024 [facility] [address] [place] [address] 08/19/2024 [facility] [address] [place] [address] 08/20/2024 [facility] [address] [place] [address] 08/21/2024 MCKE[facility] GUL Sprain of ribs, init ial encounter S23.41[facility] [address] [place] [address] 08/28/2024 [facility] [address] [place] [address] 09/02/2024 [facility] [address] [place] [address] 09/04/2024 MCKE[facility] GUL Left upper quadrant pain R10.12 and Sprain of ribs, initial encounter S23.41[facility] [address] [place] [address] 09/16/2024 [facility] GUL Left upper quadrant pain R10.12 [facility] [address] [place] [address] 10/31/2024 [facility] [address] [place] [address] 07/31/2024 MCKE[facility] GUL Weakness R53.1 and L eft upper quadrant pain R10.12 [facility] [address] [place] [address] 08/14/2024 [facility] [address] [place] [address] 08/20/2024 [facility] [address] [place] [address] 08/20/2024 [facility] [address] [place] [address] 08/20/2024 [facility] [address] [place] [address] 08/22/2024 [facility] [address] [place] [address] 08/22/2024 [facility] [address] [place] [address] 08/22/2024 [facility] [address] [place] [address] 08/22/2024 [facility] [address] [place] [address] 08/22/2024 [facility] [address] [place] [address] 08/23/2024 [facility] [address] [place] [address] 08/23/2024 [facility] [address] [place] [address] 08/23/2024 [facility] [address] [facility] [place] [address] 08/23/2024 [facility] GUL [facility] [address] [facility] [place] [address] 08/23/2024 [facility] GUL [facility] [address] [facility] [place] [address] 08/26/2024 [facility] GUL [facility] [address] [facility] [place] [address] 08/26/2024 [facility] GUL [facility] [address] [facility] [place] [address] 08/27/2024 [facility] [address] [facility] [place] [address] 08/27/2024 [facility] [address] [facility] [place] [address] 08/27/2024 [facility] [address] [facility] [place] [address] 08/27/2024 [facility] GUL [facility] [address] [facility] [place] [address] 08/28/2024 [facility] [address] [facility] [place] [address] 08/28/2024 [facility] [address] [facility] [place] [address] 08/28/2024 [facility] GUL [facility] [address] [facility] [place] [address] 08/28/2024 [facility] [address] [facility] [place] [address] 08/28/2024 [facility] GUL [facility] [address] [facility] [place] [address] 08/28/2024 [facility] [address] [place] [address] 08/28/2024 [facility] [address] [place] [address] 08/28/2024 [facility] [address] [place] [address] 08/28/2024 [facility] [address] [place] [address] 08/28/2024 [facility] [address] [place] [address] 08/28/2024 [facility] [address] [place] [address] 08/30/2024 [facility] [address] [place] [address] 09/02/2024 [facility] Left upper quadrant pain R10.12 [facility] [address] [place] [address] 09/03/2024 [facility] [address] [place] [address] 09/04/2024 [facility] Vitamin deficiency, unspecified E56.9 [facility] [address] [place] [address] 09/04/2024 [facility] Encounter for screen ing mammogram for malignant neoplasm of breast Z12.31 [facility] [address] [place] [address] 09/05/2024 [facility] [address] [place] [address] 09/06/2024 [facility] [address] [place] [address] 09/09/2024 [facility] [address] [place] [address] 09/11/2024 [facility] [address] [place] [address] 09/17/2024 [facility] [address] [facility] [address] 09/17/2024 [facility] [address] [place] [address] 09/17/2024 [facility] [address] [place] [address] 09/18/2024 [facility] [address] [facility] [place] [address] 09/19/2024 [facility] [address] [place] [address] 09/19/2024 [facility] [address] [place] [address] 09/25/2024 [facility] [address] [place] [address] 09/26/2024 [facility] [address] [facility] [place] [address] 09/30/2024 [facility] [address] [facility] [place] [address] 10/01/2024 [facility] [address] [facility] [place] [address] 10/01/2024 [facility] [address] [place] [address] 10/07/2024 [facility] [address] [place] [address] 10/07/2024 [facility] [address] [facility] [place] [address] 10/10/2024 [facility] GUL [facility] [address] [place] [address] 10/21/2024 Kalaubrey Olguindes Rib pain on right si de R07.81 [facility] [address] [facility] [address] [facility] [address] [place] [address] 10/24/2024 Hugo Mendezoctaviano Assessments Encounter Date Diagnosis (ICD Code) Assessment Notes Treatment Notes Treatment Clinical Notes Section Notes 07/29/2024 Other rheumatoid arthritis with rheumatoid factor of unspecified site (ICD-10 - M05.80) María is a 59-year-old lady with rheumatoid arthritis, generalized anxiety disorder here to establish care. Plan is as follows: Rheumatoid arthritis. She sees Dr. Bang at [facility]. 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 Generalized anxiety disorder. Mood is stable [...] is asymptomatic Eye screening. She sees her video production engineer Dr. Leonardo regularly. Dental screening. She sees dentist regularly. Breast cancer screening. She is up-to-date on her mammogram. Female screening. She follows up with her repairer controller tester for breast and pelvic exams. Colon cancer screening. She had her colonoscopy done in 2022 and is on 20-mypv-unrlq. Immunizations. She is up-to-date on her COVID and influenza vaccinations. Screening blood work before next appointment. General health concerns discussed with patient. Scribe services used to formulate this note under HIPAA compliance and under [place] law mandated for scribe services. Patient aware [...] Rheumatoid arthritis. She sees Dr. Bang at [facility]. 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 Generalized anxiety disorder. Mood is stable [...] is asymptomatic Eye screening. She sees her video production engineer Dr. Leonardo regularly. Dental screening. She sees dentist regularly. Breast cancer screening. She is up-to-date on her mammogram. Female screening. She follows up with her repairer controller tester for breast and pelvic exams. Colon cancer screening. She had her colonoscopy done in 2022 and is on 50-bvpk-uigre. Immunizations. She is up-to-date on her COVID and influenza vaccinations. Screening blood work before next appointment. General health concerns discussed with patient. Scribe services used to formulate this note under HIPAA compliance and under [place] law mandated for scribe services. Patient aware [...] Rheumatoid arthritis. She sees Dr. Bang at [facility]. 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 Generalized anxiety disorder. Mood is stable [...] is asymptomatic Eye screening. She sees her video production engineer Dr. Leonardo regularly. Dental screening. She sees dentist regularly. Breast cancer screening. She is up-to-date on her mammogram. Female screening. She follows up with her repairer controller tester for breast and pelvic exams. Colon cancer screening. She had her colonoscopy done in 2022 and is on 61-ouin-lyltk. Immunizations. She is up-to-date on her COVID and influenza vaccinations. Screening blood work before next appointment. General health concerns discussed with patient. Scribe services used to formulate this note under HIPAA compliance and under [place] law mandated for scribe services. Patient aware [...] Rheumatoid arthritis. She sees Dr. Bang at [facility]. 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 Generalized anxiety disorder. Mood is stable [...] is asymptomatic Eye screening. She sees her video production engineer Dr. Leonardo regularly. Dental screening. She sees dentist regularly. Breast cancer screening. She is up-to-date on her mammogram. Female screening. She follows up with her repairer controller tester for breast and pelvic exams. Colon cancer screening. She had her colonoscopy done in 2022 and is on 08-iepp-opaxk. Immunizations. She is up-to-date on her COVID and influenza vaccinations. Screening blood work before next appointment. General health concerns discussed with patient. Scribe services used to formulate this note under HIPAA compliance and under [place] law mandated for scribe services. Patient aware [...] Rheumatoid arthritis. She sees Dr. Bang at [facility]. 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 Generalized anxiety disorder. Mood is stable [...] is asymptomatic Eye screening. She sees her video production engineer Dr. Leonardo regularly. Dental screening. She sees dentist regularly. Breast cancer screening. She is up-to-date on her mammogram. Female screening. She follows up with her repairer controller tester for breast and pelvic exams. Colon cancer screening. She had her colonoscopy done in 2022 and is on 78-ldsj-hvdze. Immunizations. She is up-to-date on her COVID and influenza vaccinations. Screening blood work before next appointment. General health concerns discussed with patient. Scribe services used to formulate this note under HIPAA compliance and under [place] law mandated for scribe services. Patient aware [...] Rheumatoid arthritis. She sees Dr. Bang at [facility]. 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 Generalized anxiety disorder. Mood is stable [...] is asymptomatic Eye screening. She sees her video production engineer Dr. Leonardo regularly. Dental screening. She sees dentist regularly. Breast cancer screening. She is up-to-date on her mammogram. Female screening. She follows up with her repairer controller tester for breast and pelvic exams. Colon cancer screening. She had her colonoscopy done in 2022 and is on 40-krum-xywmc. Immunizations. She is up-to-date on her COVID and influenza vaccinations. Screening blood work before next appointment. General health concerns discussed with patient. Scribe services used to formulate this note under HIPAA compliance and under [place] law mandated for scribe services. Patient aware [...] Rheumatoid arthritis. She sees Dr. Bang at [facility]. 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 Generalized anxiety disorder. Mood is stable [...] is asymptomatic Eye screening. She sees her video production engineer Dr. Leonardo regularly. Dental screening. She sees dentist regularly. Breast cancer screening. She is up-to-date on her mammogram. Female screening. She follows up with her repairer controller tester for breast and pelvic exams. Colon cancer screening. She had her colonoscopy done in 2022 and is on 32-uhyq-acypa. Immunizations. She is up-to-date on her COVID and influenza vaccinations. Screening blood work before next appointment. General health concerns discussed with patient. Scribe services used to formulate this note under HIPAA compliance and under [place] law mandated for scribe services. Patient aware [...] Rheumatoid arthritis. She sees Dr. Bang at [facility]. 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 Generalized anxiety disorder. Mood is stable [...] is asymptomatic Eye screening. She sees her video production engineer Dr. Leonardo regularly. Dental screening. She sees dentist regularly. Breast cancer screening. She is up-to-date on her mammogram. Female screening. She follows up with her repairer controller tester for breast and pelvic exams. Colon cancer screening. She had her colonoscopy done in 2022 and is on 88-sygk-gcpkg. Immunizations. She is up-to-date on her COVID and influenza vaccinations. Screening blood work before next appointment. General health concerns discussed with patient. Scribe services used to formulate this note under HIPAA compliance and under [place] law mandated for scribe services. Patient aware [...] Rheumatoid arthritis. She sees Dr. Bang at [facility]. 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 Generalized anxiety disorder. Mood is stable [...] is asymptomatic Eye screening. She sees her video production engineer Dr. Leonardo regularly. Dental screening. She sees dentist regularly. Breast cancer screening. She is up-to-date on her mammogram. Female screening. She follows up with her repairer controller tester for breast and pelvic exams. Colon cancer screening. She had her colonoscopy done in 2022 and is on 77-vvwd-ibamr. Immunizations. She is up-to-date on her COVID and influenza vaccinations. Screening blood work before next appointment. General health concerns discussed with patient. Scribe services used to formulate this note under HIPAA compliance and under [place] law mandated for scribe services. Patient aware [...] Insured Coverage Start Date Coverage End Date [employer] [address] [address] [place] [phone] [id number] MARÍA OLSON Self - patient is the insured 0 Medical (General) History Medical History History ICD Code TB treated by ID in [facility] RA treated by DR Bang at [facility] eye disease and see Dr Leonardo generalized anxiety disorder skin sensitivity Surgical History Surgery Date(Month/Year) carpal tunnel strabismus repair Gallbladder removed hernia repair
--- OUTSIDE RECORDS SUMMARY | 2025-07-03 10:50 | XMS_ITS | Encounter Summary ---
Author Organization [facility] Address [address] [place] [address] Care Team Providers Care Cotton Converter Name Role Phone Araceli Augustin Primary Care Provider + Reason for Visit * Reason Onset Date Comments patient call 06/19/2025 Encounter Details Date Type Department Care Team (Late st Contact Info) Description 06/19/2025 Telephone Gastroenterology - [place] [address] [place] [address] Gia Lance NP [address] [place] [address] Social History Tobacco Use Types Packs/Day Years [...] documented in this encounter Progress Notes * Siria Denise MA - 06/20/2025 3:25 PM EDT Gia is out of the office until Monday, pt will need to go to ER if the symptoms get worse. I will send message to provider and update with response * Mei Young - 06/19/2025 9:35 AM EDT Patient called and stated she is experiencing burning bowel movements when she is able to go, mostly constipation, severe dry mouth and abdominal pain. Would like a call back to discuss options documented in this encounter Plan of Treatment Upcoming Encounters Date Type Department Care Team (Latest Contact Info) Description 07/08/2025 3:15 PM EDT Consult Orthopedic Surgery [facility] [address] [facility] [address] [place] [phone] Bessy Mesa MD [address] [place] [address] 07/16/2025 2:00 PM EDT Hospital Encounter [facility] Main OR [address] [place] [phone] Bessy Mesa MD [address] [place] [address] 07/16/2025 2:00 PM EDT - 07/16/2025 3:30 PM EDT Surgery [facility] OR [address] [place] [address] Bessy Mesa MD [address] [place], [place] core decompression of the right distal radius [98193 (CPT )] 07/25/2025 10:45 AM EDT Office Visit Orthopedic Surgery [facility] [address] [facility] [address] [place] [address] Nichelle Archibald PA [address] [place], [place] Scheduled Procedures Name Priority Associated Diagnoses Date/Ti me OSTEOTOMY RADIUS 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
== END 2025-07-03 10:23 | disposition home or self-care (01) ==
LOC: HO.RHES 09:42
PROVIDERS: Visit Provider Internal Medicine Rheumatology
DX: M05.79 Rheumatoid arthritis with rheumatoid factor of multiple sites without organ or systems involvement (principal)
CPT/HCPCS: 99214; G2211

== ENCOUNTER 2025-07-23 12:42 | Outpatient (AMB) | payer OTHER, SELFPAY ==
--- OUTSIDE RECORDS SUMMARY | 2025-02-14 07:00 | XMS_ITS ---
Author Organization [facility] Address [address] [place] [address] Care Team Providers Care Eligibility Consultant Name Role Phone IKER ROBLERO PA-C Primary Care Provider Unav Latonya Panda Unavailable [phone] REASON FOR VISIT ULTRA - CK OVARIES ? DERMOID ON RT ADNEXA ON X RAY Encounters Encounter Location Date Provider Diagnosis [facility] [employer] [address] 02/14/2025 Latonya Lozano Plan Of Treatment No Information Progress Notes * DAWSON OLSONMOONOB:1965 (60 yo F)Acc No.[id number]:02/14/2025 PROGRESS NOTES Patient: MARCUS RODRIGUEZ Appointment Provider: Shannon Lozano M.D. :1965 A ge:59 Y S ex:Female Date:02/14/2025 Address:[address] [place], [place] [address] Pcp:IKER ROBLERO PA-C Subjective: * Chief Complaints: * 1 . ULTRA - CK OVARIES ? DERMOID ON RT ADNEXA ON X RAY. * Medical History: Objective: * Vitals: Assessment: Plan: * Treatment: * Images: Billing Information: * Visit Code: * Procedure Codes: * Electronic signature of Pato Lozano MD on 07/23/2025 at 04:09 PM EDT Sign off status: Pending * Appointment Provider: Shannon Lozano M.D. Date: 0 02/14/2025 Generated for Renay bear/Hilton/eTransmitting on: 0 07/23/2025 04:09 PM EDT
--- OUTSIDE RECORDS SUMMARY | 2025-03-03 09:10 | XMS_ITS ---
Author Organization [facility] Address [address] [place] [address] Care Team Providers Care Cyber Forensic Specialist Name Role Phone IKER ROBLERO PA-C Primary Care Provider Latonya Ramirez Unavailable [phone] Allergies Allergen (clinical drug ingredient) Drug/Non Drug [...] Active Encounters Encounter Location Date Provider Diagnosis [address] [address] 03/03/2025 Latonya Lozano Plan Of Treatment No Information Progress Notes * MIS OLSONOB:1965 (60 yo F)Acc No.[id number]:03/03/2025 Patient: Bhavna DIORMARCUS Appointment Provider: Shannon Lozano M.D. :1965 A ge:59 Y S ex:Female Date:03/03/2025 Address:[address] [place] [address] Pcp:IKER ROBLERO PA-C Subjective: * Chief Complaints: [...] on cytologic smear of cervix (ASC-US). * Customer Counter Associate History: G ravida/ Para 2 /2. S exual activity n ot currently sexually active. L ast Pap Smear: ASCUS, POS HRHPV (Neg 16, 18/45), 03/28/22 LGSIL, POS HRHPV (neg 16, 18/45), 11/21/17 NEG HRHPV, 2011. M ammogram: < 50% density, 02/27/19 < 50% density, 07/26/2017 normal, 07/2016 with follow up Lt Diagnostic 07/09/2016 Bx recommended. A bnormal Pap Smear: [place] Negative, 06/06/22 [place] Negative, 03/2022 LGSIL, + HRHPV. L MP [...] 0 03/03/2025 Generated for Renay bear/Hilton/Sh[place]ille on: 0 07/23/2025 04:09 PM EDT
--- OUTSIDE RECORDS SUMMARY | 2025-03-06 06:00 | XMS_ITS ---
Author Organization [facility] Address [address] [facility] [address] [place] [address] Care Team Providers Care Maintenance Inspector Name Role Phone IKER ROBLERO PA-C Primary Care Provider Latonya Ramirez Unavailable [phone] Allergies Allergen (clinical drug ingredient) Drug/Non Drug [...] Gabapentin 100 MG TAKE 1 CAPSULE BY [facility] 3 TIMES A DAY Oral; Duration: 30 [...] 6-10 Encounters Encounter Location Date Provider Diagnosis [address] [place] [address] 03/06/2025 Latonya Lozano Plan Of Treatment No Information Progress Notes * DAWSON OLSONENDOB:1965 (60 yo F)Acc No.[id number]:03/06/2025 Patient: MARCUS RODRIGUEZ Appointment Provider: Shannon Lozano M.D. :1965 A ge:59 Y S ex:Female Date:03/06/2025 Address:[address] [place], [place] [phone] Pcp:IKER ROBLERO PA-C Subjective: * Chief Complaints: [...] on cytologic smear of cervix (ASC-US). 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 S exual activity n ot currently sexually active. L ast Pap Smear: ASCUS, POS HRHPV (Neg 16, 18/45), 03/28/22 LGSIL, POS HRHPV (neg 16, 18/45), 11/21/17 NEG HRHPV, 2011. M ammogram: Breast Tissue is Almost Entirely Fatty, , 02/27/19 < 50% density, 07/26/2017 normal, 07/2016 with follow up Lt Diagnostic 07/09/2016 Bx recommended. A bnormal Pap Smear: [place] Negative, 06/06/22 [place] Negative, 03/2022 LGSIL, + HRHPV. L [...] 0 03/06/2025 Generated for Renay bear/Hilton/Lambertoitting on: 0 07/23/2025 04:09 PM EDT
[2025-07-23 12:56] VITALS: BMI 27.5
--- NOTE | 2025-07-23 12:56 | A.SPINEOV_ITS ---
Vital Signs 07/23/25 12:56 Height 5 ft 4 in Weight 160 lb BMI 27.5 Intake Visit Reasons: chronic lumbar radiculopathy Intake Note: Ms. Phillips is here today c/o low back and si joint pain. 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: No Allergies erythromycin base Allergy (Verified 07/23/25 12:57) Hives etanercept (From Enbrel) Adverse Reaction (Intermediate, Verified 07/23/25 12:57) diverticulitis leflunomide Adverse Reaction (Intermediate, Verified 07/23/25 12:57) diverticulitis prednisone Adverse Reaction (Intermediate, Verified 07/23/25 12:57) Body pain gabapentin Adverse Reaction (Mild, Verified 07/23/25 12:57) tremors Physical Exam Vital Signs: BMI result Body Mass Index 27.5 Assessment & Plan Assessment & Plan (1) Buttock pain: Code(s): M79.18 - Myalgia, other site Category: Medical Plan Dear colleague Thank you for referring María Phillips to the office today with a chief complaint of right-sided rib pain, bilateral SI joint pain and pelvic pain. HPI: This 60-year-old female was diagnosed with latent TB. She states that after the diagnosis and treatment it went downhill. She is having right-sided rib pain. Specifically, the pain starts in the midline of the back and then wraps around the right side of her thorax. The pain is around the T10 dermatome. 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 I reviewed the MRI of the thoracic spine to exclude nerve root compression of the thoracic spine that could explain this radiating pain. None is seen. Second complaint is bilateral pain in the SI joints, right her right side is more affected than the left side. The pain radiates to her posterior thigh and into midline of the pelvic area. A gynecological cause was excluded. I did review the MRI of the lumbar spine that shows multilevel degenerative disc disease but no central stenosis or neuroforaminal stenosis. She had multiple what sounds like epidural steroid injections without success. She also had physical therapy and acupuncture. She was recently diagnosed with osteoarthritis. On exam, straight leg raise produces pain in deep in her pelvis. WM test is positive. No motor or sensory deficits, including the thoracic area. It is, this 60-year-old female suffering from diffuse pains . The thoracic pain does follow distribution of either T9 and T10 nerve roots. She is scheduled to undergo another rib surgery next week. I advised her to ask the surgeon if the ribs 9 and 10 are touching each other as that could explain ongoing pain. As far as the pain in the SI joint regions. We will refer for a left SI joint diagnostic block, although her presentation and physical exam are not characteristic for SI joint dysfunction. There is no surgical cause in the spine that can explain her symptoms. Thank you for allowing me to participate in your patients care. total time spent was 50 minutes in counseling ,coordination of plan, personal review of imaging, surgical decision making and subsequent plan Andry Montero MD, PhD Spine Fellowship Trained Neurosurgeon Director, [facility] Orders: Referrals Pain Management Referral M79.18 - Myalgia, other site Coding Level of Care Code New Pt Level 4 (88861) Diagnoses Buttock pain M79.18
--- OUTSIDE RECORDS SUMMARY | 2025-07-23 16:09 | XMS_ITS | Patient Health Record ---
Author Organization [email or web address] [facility] Address [address] [place] [address] Care Team Providers Care Field Support Engineer Name Role Phone IKER ROBLERO PA-C Primary Care Provider Unav bianca Lozano Latonya Unavailable [phone] Allergies Allergen (clinical drug ingredient) Drug/Non Drug Allergy documented on EMR Reaction Allergy Type Onset Date Status erythromycin ERYTHROMYCIN Skin Rash Drug Allergy A ctive Results Component Value Reference Range Notes Urinalysis Reviewed date:10/14/2024 01:33:35 PM Interpretation: Performing Lab: Notes/Report: PH 8.0 PROTEIN Neg GLUCOSE Neg BLOOD Neg Vitamin [id number] Reviewed date:12/14/2024 02:48:01 PM Interpretation: Performing Lab:[facility] [address], Phone - [phone], Director - MDJodry Notes/Report: Test(s) 864219-Rrq. B1, Whole Blood was developed and its performance characteristics determined by [facility]. It has not been cleared or approved by the Food and Drug Administration. Vitamin B12 [phone] pg/mL Thyroxine (T4) Free, Direct- 108179 Reviewed date:12/14/2024 02:48:28 PM Interpretation: Performing Lab:[facility] [address], Phone - [phone], Director - MDJodry Notes/Report: Test(s) 228924-Tgi. B1, Whole Blood was developed and its performance characteristics determined by [facility]. It has not been cleared or approved by the Food and Drug Administration. T4,Free(Direct) 1.16 0.82-1.77 ng/dL TSH-[id number] Reviewed date:12/14/2024 02:48:55 PM Interpretation: Performing Lab:[facility] [address], Phone - [phone], Director - [facility] Notes/Report: Test(s) 937888-Lam. B1, Whole Blood was developed and its performance characteristics determined by [facility]. It has not been cleared or approved by the Food and Drug Administration. TSH 0.492 0.450-4.500 uIU/mL Triiodothyronine (T3), Free- 893208 Reviewed date:12/14/2024 02:48:08 PM Interpretation: Performing Lab:[facility] [address], Phone - [phone], Director - [facility] Notes/Report: Test(s) 670533-Ala. B1, Whole Blood was developed and its performance characteristics determined by [facility]. It has not been cleared or approved by the Food and Drug Administration. Triiodothyronine (T3), Free 2.9 2.0-4.4 pg/mL Vitamin D, 49-[id number] Reviewed date:12/14/2024 02:47:53 PM Interpretation: Performing Lab:[facility] [address], Phone - [phone], Director - [facility] Notes/Report: Test(s) 069595-Tcx. B1, Whole Blood was developed and its performance characteristics determined by [facility]. It has not been cleared or approved by the Food and Drug Administration. Vitamin D, 25-Hydroxy 48.0 30.0-100.0 ng/mL Vitamin D deficiency has been defined by the [place] of Medicine and an Endocrine Society practice guideline as a level of serum 25-OH vitamin D less than 20 ng/mL (1,2). The Endocrine Society went on to further define vitamin D insufficiency as a level between 21 and 29 ng/mL (2). 1. IOM ([place] of Medicine). 2010. Dietary reference intakes for calcium and D. [place]: The National Academies Press. 2. Angelica MF, Leonel NC, Sheeba MCKENNA, et al. Evaluation, treatment, and prevention of vitamin D deficiency: an Endocrine Society clinical practice guideline. JCEM. 2010; 96(7):1911-30. Vitamin B1 (Thiamine), Blood -301469 Reviewed date:12/14/2024 02:48:18 PM Interpretation: Performing Lab:[facility] [place] [address] [facility], Phone - [phone], Director - [facility] Notes/Report: Test(s) 312599-Hbo. B1, Whole Blood was developed and its performance characteristics determined by [facility]. It has not been cleared or approved by the Food and Drug Administration. Vit. B1, Whole Blood 131.3 66.5-200.0 nmol/L PDF Report Reviewed date:12/14/2024 02:47:46 PM Interpretation: Performing Lab:[facility] [place], [address] [facility], Phone - [phone], Director - [facility] Notes/Report: Test(s) 328250-Hrz. B1, Whole Blood was developed and its performance characteristics determined by [facility]. It has not been cleared or approved by the Food and Drug Administration. 540072-Gnj IGP No Culture 30 Plus Reviewed date:07/17/2025 02:32:32 PM Interpretation: Performing Lab:[facility] [place] [address], [address], [place], Phone - [phone], Director - [facility] Notes/Report: Clinical Information:VAG/CERV [id number] Dates / Results....05/26/2023 ASCUS POS HPV Other..............Post Menopausal No. of containers..01 ThinPrep Vial Clinical Information:VAG/CERV [id number] Dates / Results....05/26/2023 ASCUS POS HPV Other..............Post Menopausal No. of containers..01 ThinPrep Vial DIAGNOSIS: NEGATIVE FOR INTRAEPITHELIAL LESION OR MALIGNANCY. THIS SPECIMEN WAS RESCREENED PART OF OUR COMPUTER PATTERNMAKER PROGRAM. Specimen adequacy: Satisfactory for evaluation. Endocervical and/or squamous metaplastic cells (endocervical component) are present. Clinician provided ICD10: Z01.419 Z11.51 Performed by: Tianna vasquez, Salt Refiner (ASC) QC reviewed by: Tutu weaver, Salt Refiner (ASC) . . Note: The Pap smear is a screening test designed to aid in the detection of premalignant and malignant conditions of the uterine cervix. It is not a diagnostic procedure and should not be used as the sole means of detecting cervical cancer. Both false-positive and false-negative reports do occur. . Test Methodology: This liquid based ThinPrep(R) pap test was screened with the use of an image guided system. HPV Aptima Positive Negative This nucleic acid amplification test detects fourteen high-risk HPV types (16,18,31,33,35,39,45,51,5 2,56,58,59,66,68) without differentiation. HPV Genotype Reflex Criteria met, see HPV Genotype results. HPV Genotype 16 Negative Negative HPV Genotype 18,45 Negative Negative PDF Report Reviewed date:07/10/2025 04:46:44 PM Interpretation: Performing Lab:[facility], [address], [address], [place], Phone - [phone], Director - Jaswinder Notes/Report: Clinical Information:VAG/CERV [id number] Dates / Results....05/26/2023 ASCUS POS HPV Other..............Post Menopausal No. of containers..01 ThinPrep Vial Urinalysis, Complete-[id number] Reviewed date:07/03/2025 07:42:16 AM Interpretation: Performing Lab:[facility], [address], [place], Phone - [phone], Director - Elsa Notes/Report: Clinical Information:SRC: Clinical Information:SRC: Specific [place] 1.013 1.005-1.030 pH 6.5 5.0-7.5 Urine-Color Yellow [...] Bacteria None seen None seen/Few Urine Culture, Routine-[id number] Reviewed date:07/03/2025 07:42:29 AM Interpretation: Performing Lab:[facility], [address], [place], Phone - [phone], Director - Elsa Notes/Report: Clinical Information:SRC:UC Clinical Information:SRC:UC Urine Culture, Routine Final report Result 1 Mixed urogenital ramone 25,000-50,000 colony forming units per mL PDF Report Reviewed date:07/03/2025 07:41:07 AM Interpretation: Performing Lab:[facility], [address], [place], Phone - [phone], Director - Elsa Notes/Report: Clinical Information:SRC:UC Reason For Referral No Information Medications Medication SIG (Take, Route, Frequency, Duration) Notes Start Date End Date Status Vitamin C 500 MG as directed Orally Active Escitalopram Oxalate 10 MG Oral; Duration: 30 Days Active Turmeric 500 MG as directed Orally Active Gabapentin 100 MG TAKE 1 CAPSULE BY ND UT 3 TIMES A DAY Oral; Duration: [...] test positive, high risk on vaginal specimen ([id number]) Cervical high risk human papillomavirus (HPV) DNA test positive (R87.810) Active confirmed Problem Postmenopausal atrophic vaginitis (15255694) Postmenopausal atrophic vaginitis (N95.2) Active confirmed Problem Cervicovaginal cytology: Low grade squamous intraepithelial lesion (262337803) Low grade squamous intraepithelial lesion on cytologic smear of cervix (LGSIL) (R87.612) Active confirmed Problem Non-toxic single thyroid nodule (812407730) Nontoxic single thyroid nodule (E04.1) Active confirmed Problem Autoimmune thyroiditis (70612469) Autoimmune thyroiditis (E06.3) Active confirmed Problem Anxiety disorder (955874323) Anxiety disorder, unspecified (F41.9) Active confirmed Problem Epidermal cyst (012868399) Epidermal cyst (L72.0) Active confirmed Problem Rheumatoid arthritis (04925993) Rheumatoid arthritis, unspecified (M06.9) Active confirmed Problem Endometrial intraepithelial neoplasia (501773553) 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) Active confirmed Problem Postcoital bleeding (20724780) Postcoital and contact bleeding (N93.0) Active confirmed Problem Unspecified abnormal finding in specimens from female genital organs (R87.9) Active confirmed Problem Menopause (820241211) Menopausal and female climacteric states (N95.1) Active confirmed Problem Anxiety state (769278729) Anxiety state, unspecified (300.00) Active confirmed Major Vital Signs Temperature 97.3 degrees Fahrenheit 07/03/2025 Blood pressure diastolic 84 mm Hg 07/03/2025 Height 62 in 07/03/2025 Blood pressure systolic 128 mm Hg 07/03/2025 Weight 161 lbs 07/03/2025 BMI 29.44 kg/m2 07/03/2025 Encounters Encounter Location Date Provider Diagnosis [employer] [place] [address] [place] [address] 12/05/2024 Latonya Lozano [employer] [place] [address] [place] [address] 02/14/2025 Latonya Lozano [facility] [place] [address] [facility] [address] [place] [address] 03/06/2025 Latonya Lozano [facility] [place] [address] [facility] [address] [place] [address] 10/14/2024 Latonya Lozano Encounter for gynecological examination (general) (routine) without abnormal findings Z01.419 ; Encounter for screening mammogram for malignant neoplasm of breast Z12.31 ; Personal history of other diseases of the female genital tract Z87.42 ; Cervical high risk human papillomavirus (HPV) DNA test positive R87.810 and Postmenopausal atrophic vaginitis N95.[address] [address] 12/09/2024 Latonya Lozano Other fatigue R53.83 and Menopausal and female climacteric states N95.[address] [address] 07/03/2025 Latonya Lozano Lower abdominal pain , unspecified R10.30 ; Atypical squamous cells of undetermined significance on cytologic smear of vagina (ASC-US) R87.620 ; Cervical high risk human papillomavirus (HPV) DNA test positive R87.810 and Encounter for screening for human papillomavirus (HPV) Z11.[address] [address] 12/03/2024 Latonya Lozano [facility] [address] [address] 12/12/2024 Latonya Mcgeeva [facility] [address] [address] 01/22/2025 Latonya Mcgeeva [address] [address] 02/16/2025 Latonya Lozano [facility] [address] [address] 06/30/2025 Latonya Lozano Dysuria R30.0 Assessments Encounter Date Diagnosis (ICD Code) Assessment Notes Treatment Notes Treatment Clinical Notes Section Notes 10/14/2024 Encounter for gynecological examination (general) (routine) without abnormal findings (ICD-10 - Z01.419) PAP TEST WAS DEFERRED. PAT WAS ADVISED TO USE PREMARIN CREAM REGULARLY [...] AND NEEDS TESTOSTERONE THERAPY, WILL REFER TO [facility]. WARNED PAT OF POSSIBLE VAGINAL [...] Insured Coverage Start Date Coverage End Date [facility] [address] [address] [place] [address] [phone] [id number] MARCUS OLSON Self - patient is the [...]
--- OUTSIDE RECORDS SUMMARY | 2025-07-23 16:09 | XMS_ITS | Clinical Summary ---
Author Organization [facility] Address [address] [place] [address] Care Team Providers Care Contracts Intern Name Role Phone Vee Allan MD [...] 07/20/2022 02/21/2022, 01/17/2022 COVID-19 Vaccine ( - 2024- season) 2025 02/02/2022, 07/05/2021, 06/24/2021, Additional history exists Influenza Vaccine (#1) 2025 , 09/19/2022, 08/02/2021, Additional history exists DTap / Tdap / Td (3 - Td or Tdap) 01/09/2029 01/09/2019, 06/01/2015 Hepatitis C Screening Completed 05/20/2024 RSV Ped < 20 months Aged Out No longe r eligible based on patient's age to complete this topic Care Teams Contracts Intern Relationship Specialty Start Date End Date Vee Allan MD PCP - General Internal Medicine 12/05/19
--- OUTSIDE RECORDS SUMMARY | 2025-07-23 16:09 | XMS_ITS | Patient Health Record ---
Author Organization [facility] [address] Address [address] [place] [address] Care Team Providers Care Research And Development Tester Name Role Phone IKER ROBLERO Unavailable [phone] MILESCHINO CHRIS Unavailable [phone] Normoylmason Sneha Unavailable [phone] Allergies Allergen (clinical drug ingredient) Drug/Non Drug Allergy documented on EMR Reaction Allergy Type Onset Date Status Macrolides and Ketolides hives Drug Allergy Active Results Component Value Reference Range Notes XR FLUORO UP TO 1 HOUR Reviewed date:02/04/2025 05:11:16 PM Interpretation: Performing Lab: Notes/Report: Note See Note [facility], a member of [employer] Patient Name: MARÍA PHILLIPS Date of : 1965 Reason for Exam: pain Exam Date: 02/04/2025 [id number] EST Report Status: Final Ordering Provider: DAVID [...] Morton Signed Date: 12:53 ET Workstation ID: [id number] Transcribed By: Self Edit Transcribed Date: 02/04/2025 12:51 ET BORRELIA BURGDORFERI ANTIBOD Y Reviewed date:12/06/2024 12:06:22 PM Interpretation: Performing Lab: Notes/Report: Lyme Ab Negative Negative No laboratory evidence of infection with B. burgdorferi (Lyme disease). Negative results may occur in patients recently infected (<=14 days) with B. burgdorferi. If recent infection is suspected, repeat testing on a new sample collected in 7-14 days is recommended. TISSUE EXAM Reviewed date:07/20/2025 07:42:46 PM Interpretation: Performing Lab: Notes/Report: Final Diagnosis Bone, Right, Distal Radius-decompression: -FRAGMENTS OF TRABECULAR BONE WITH NO SPECIFIC PATHOLOGIC CHANGE Gross Description A. Wrist, Right, Dis shanika Radius: Labeled right dis wrist R . Received in formalin is a 1.4 x 0.8 x 0.2 cm aggregate of hard, rocha-red bone fragments which are wrapped in paper and submitted in toto in one cassette, multiple pieces, following decalcification. TS Disclaimer Unless otherwise specified, all tissue is 10% NB formalin fixed and paraffin embedded. Comment Intact specimen with articular cartilage is preferred specimen for evaluating avascular necrosis. CULTURE WOUND DEEP Reviewed date:07/21/2025 01:17:57 PM Interpretation: Performing Lab: Notes/Report: Culture, Wound No growth at 3 days Gram Stain Result No polymorphonuclear leukocytes, No epithelial cells, and No organisms noted CT CHEST WO CONTRAST Reviewed date:06/03/2025 12:20:20 PM Interpretation: Performing Lab: Notes/Report: Note See Note [facility], a member of [employer] Patient Name: MARÍA PHILLIPS Date of : 1965 Reason for Exam: PULMONARY NODULE Exam Date: 05/28/2025 [id number] EST Report Status: Final Ordering Provider: IKER ROBLERO PCP: IKER ROBLERO History: Pulmonary nodule follow-up. Comparison: 12/05/24 Technique: Helical volumetric imaging of the thorax was performed without IV contrast. DLP: 279.09 mGy/cm [employer] Iterative reconstruc tion technique Findings: The trachea and cent ral bronchial tree remain patent. Mild centrilobular and [...] pericardial effusions are seen. The heart remains no rmal in size. Minimal atherosclerotic calcification of the [...] n is intact. IMPRESSION: Impression: 1. Stable subcentime ter pulmonary nodules being followed, reassuring for a benign process. One-year follow-up recommended. 2. No developing thoracic lymphadenopathy. Telerad PA ([id number]) -------- FINAL REPOR T -------- Dictated By: Dayami Walker i Dictated Date: 06/02/2025 09:00 ET Assigned Physician: Dayami Diehl Reviewed and Electronically Signed By: Dayami Diehl Signed Date: 025 09:13 ET Workstation ID: [id number] Transcribed By: Self Edit Transcribed Date: 06/02/2025 09:00 ET XR HAND 3+ VIEWS RIGHT Reviewed date:05/15/2025 07:58:11 AM Interpretation: Performing Lab: Notes/Report: Note See Note [facility], a member of [employer] Patient Name: MARÍA PHILLIPS Date of : 1965 Reason for Exam: pain Exam Date: 05/14/2025 [id number] EST Report Status: Final Ordering Provider: OLAF [...] abnormality is seen. IMPRESSION: No acute findings. B tasia demineralization. Severe deformity of the lunate with loss of height which may be consequent to old trauma or to avascular necrosis. 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 Code 18265, 25478 -------- FINAL REPOR T -------- Dictated By: Mauro Wright Dictated Date: 05/15/2025 07:41 ET Assigned Physician: Mauro Wright Reviewed and Electronically Signed By: Mauro Wright Signed Date: 025 07:44 ET Workstation ID: [id number] Transcribed By: Self Edit Transcribed Date: 05/15/2025 07:41 ET XR WRIST 3+ VIEWS RIGHT Reviewed date:05/15/2025 07:58:21 AM Interpretation: Performing Lab: Notes/Report: Note See Note [facility], a member of [employer] Patient Name: MARÍA PHILLIPS Date of : 1965 Reason for Exam: Exam Date: 05/14/2025 [id number] EST Report Status: Final Ordering Provider: OLAF KAPLAN PCP: IKER ROBLERO Please see combined report with radiographs of the right hand. -------- FINAL REPOR T -------- Dictated By: Mauro Wright Dictated Date: 05/15/2025 07:41 ET Assigned Physician: Mauro Wright Reviewed and Electronically Signed By: Mauro Wright Signed Date: 025 07:41 ET Workstation ID: [id number] Transcribed By: Self Edit Transcribed Date: 05/15/2025 07:41 ET HEMOGLOBIN A1C Reviewed date:05/06/2025 03:59:06 PM [...] 3.2-5.0 g/dL Total Bilirubin 0.4 0.0-1.4 mg/dL MG MAMMO DIGITAL SCREENING W HERACLIO BILAT Reviewed date:02/06/2025 11:57:46 AM Interpretation: Performing Lab: Notes/Report: Note See Note [facility], a member of [employer] Patient Name: MARÍA PHILLIPS Date of : 1965 Reason for Exam: SCREENING Exam Date: 02/05/2025 [id number] EST Report Status: Final Ordering Provider: IKER [...] is recommended in 1 year. Mammo Location: [facility], [address] [place] [address], [id number], . -------- FINAL REPOR T -------- Dictated By: Stefani Zamora Dictated Date: 02/06/2025 09:43 ET Assigned Physician: Stefani Zamora Reviewed and Electronically Signed By: Stefani Zamora Signed Date: 025 09:45 ET Workstation ID: [id number] Transcribed By: Self Edit Transcribed Date: 02/06/2025 09:[address] SINUSES WO CONTRAST Reviewed date:01/24/2025 12:18:38 PM Interpretation: Performing Lab: Notes/Report: Note See Note [facility], a member of [facility] Patient Name: MARÍA PHILLIPS Date of : 1965 Reason for Exam: deviated septum,sinonasal polyp Exam Date: 01/24/2025 [id number] EST Report Status: Final Ordering Provider: EDMUND [...] Signed Date: 025 08:42 ET Workstation ID: [id number] Transcribed By: Self Edit Transcribed Date: 01/24/2025 08:15 ET US HEAD NECK SOFT TISSUE Reviewed date:01/24/2025 01:16:29 PM Interpretation: Performing Lab: Notes/Report: Note See Note [facility], a member of [employer] Patient Name: MARÍA PHILLIPS Date of : 1965 Reason for Exam: cervicalgia Exam Date: 01/24/2025 [id number] EST Report Status: Final Ordering Provider: CHINO YBARRA PCP: IKER ROBLERO [facility]AMINATION: [facility] CLINICAL INFORMATION: Pain. Symptoms for 6 [...] Signed Date: 025 08:00 ET Workstation ID: [id number] Transcribed By: Self Edit Transcribed Date: 01/24/2025 07:55 ET URINALYSIS WITH REFLEX MICRO SCOPIC AND CULTURE Reviewed date:01/21/2025 02:02:02 PM Interpretation: Performing Lab: Notes/Report: Specific [place] Urine 1.034 1.003-1.030 pH, Urine 6.5 5.0-8.0 pH Leukocytes, Urine Negative Negative Nitrite, Urine Negative Negative Protein, Urine Trace <=Trace mg/dL Glucose, Urine Negative Negative mg/dL Ketones, Urine Negative Negative mg/dL Urobilinogen, Urine 0.2 0.2-1.0 mg/dL Bilirubin, Urine Negative Negative Blood, Urine Negative Negative Anti-La (SS-B) Ab (RDL)-5203 20 Reviewed date:02/11/2025 07:42:47 AM Interpretation: Performing Lab:[address], Phone - [phone], Director - [facility] Notes/Report: and Drug Administration. by [facility]. It has not been cleared or approved by the Food was developed and its performance characteristics determined Test(s) 703190-Nqto-Qv-9 Ab (RDL) Anti-La (SS-B) Ab (RDL) <20 <20 Units Negative: <20 Weak Positive: 20-39 Moderate Positive: 40-80 Strong Positive: >80 Anti-Sm Ab (RDL)-505561 Reviewed date:02/11/2025 07:42:50 AM Interpretation: Performing Lab:[facility], [facility], [place], Phone - [phone], Director - [facility] Notes/Report: Test(s) 701958-Gxkk-Qy-3 Ab (RDL) was developed and its performance characteristics determined by [facility]. It has not been cleared or approved by the Food and Drug Administration. Anti-Sm Ab (RDL) <20 <20 Units Negative: <20 Weak Positive: 20-39 Moderate Positive: 40-80 Strong Positive: >80 Anti-Ro (SS-A) Ab (RDL)-5200 10 Reviewed date:02/11/2025 07:42:55 AM Interpretation: Performing Lab:[facility] [address], Phone - [phone], Director - [facility] Notes/Report: Test(s) 007353-Grvl-Fw-9 Ab (RDL) was developed and its performance characteristics determined by [facility]. It has not been cleared or approved by the Food and Drug Administration. Anti-Ro (SS-A) Ab (RDL) <20 <20 Units Negative: <20 Weak Positive: 20-39 Moderate Positive: 40-80 Strong Positive: >80 Anti-Mi-2 Ab (RDL)-740583 Reviewed date:02/11/2025 07:42:59 AM Interpretation: Performing Lab:[facility] [address], Phone - [phone], Director - [facility] Notes/Report: Test(s) 516224-Imjv-Bk-8 Ab (RDL) was developed and its performance characteristics determined by [facility]. It has not been cleared or approved by the Food and Drug Administration. Anti-Mi-2 Ab (RDL) Negative Negative Comp. Metabolic Panel (14)-3 64163 Reviewed date:02/11/2025 07:43:25 AM Interpretation: Performing Lab:[facility] [address], Phone - [phone], Director - [facility] Notes/Report: Test(s) 795201-Amth-Xk-6 Ab (RDL) was developed and its performance [...] 0-40 IU/L ALT (SGPT) 13 0-32 IU/L Ldiy-Yh-0-581598 Reviewed date:02/11/2025 07:43:02 AM Interpretation: Performing Lab:[facility] [place], [address] [place] [address], [place], Phone - [phone], [facility] Notes/Report: Test(s) 674720-Okrh-Es-2 Ab (RDL) was developed and its performance characteristics determined by [facility]. It has not been cleared or approved by the Food and Drug Administration. Anti-Lakisha-1 <0.2 0.0-0.9 AI Creatine Kinase (CK), MB-120 816 Reviewed date:02/11/2025 07:43:06 AM Interpretation: Performing Lab:[facility] [place], [address] [place] [address], [place], Phone - [phone], [facility] Notes/Report: Test(s) 792586-Salq-Bg-5 Ab (RDL) was developed and its performance characteristics determined by [facility]. It has not been cleared or approved by the Food and Drug Administration. Creatine Kinase (CK), MB 1.4 0.0-5.3 ng/mL C-Reactive Protein, Cardiac- 412480 Reviewed date:02/11/2025 07:43:09 AM Interpretation: Performing Lab:[facility] [address], [place], Phone - [phone], Director - Elsa Notes/Report: Test(s) 079376-Pehq-Gd-3 Ab (RDL) was developed and its performance characteristics determined by [facility]. It has not been cleared or approved by the Food and Drug Administration. C-Reactive Protein, Cardiac 1.34 0.00-3.00 mg/L Relative Risk for Future Cardiovascular Event Low <1.00 Average 1.00 - 3.00 High >3.00 Anti-dsDNA Antibodies-631548 Reviewed date:02/11/2025 07:43:13 AM Interpretation: Performing Lab:[facility] [address], Phone - [phone], Director - [facility] Notes/Report: Test(s) 369545-Tixz-Fo-4 Ab (RDL) was developed and its performance characteristics determined by [facility]. It has not been cleared or approved by the Food and Drug Administration. Anti-DNA (DS) Ab Qn 1 0-9 IU/mL Negative <5 Equivocal 5 - 9 Positive >9 Complement C3, Serum-853347 Reviewed date:02/11/2025 07:43:16 AM Interpretation: Performing Lab:[facility] [address], Phone - [phone], Director - [facility] Notes/Report: Test(s) 281975-Ydzk-Qk-5 Ab (RDL) was developed and its performance characteristics determined by [facility]. It has not been cleared or approved by the Food and Drug Administration. Complement C3, Serum 119 82-167 mg/dL Sedimentation Rate-Westergre n-587654 Reviewed date:02/11/2025 07:42:43 AM Interpretation: Performing Lab:[facility] [address], Phone - [phone], Director - [facility] Notes/Report: Test(s) 579066-Vcih-Hz-7 Ab (RDL) was developed and its performance characteristics determined by [facility]. It has not been cleared or approved by the Food and Drug Administration. Sedimentation Rate-Westergren 14 0-40 mm/hr Maryan Barnett CMP14 Default A hand-written panel/profile was received from your office. In accordance with the [facility] Ambiguous Test Code Policy dated May 2003, we have completed your order by using the closest currently or formerly recognized AMA panel. We have assigned Comprehensive Metabolic Panel (14), Test Code #789947 to this request. If this is not the testing you wished to receive on this specimen, please contact the [facility] Client Inquiry/Technical Services Department to clarify the test order. We appreciate your business. CBC With Differential/Platel et-855590 Reviewed date:02/11/2025 07:43:32 AM Interpretation: Performing Lab:[facility] [place], [address] [place] [address], [place], Phone - [phone], Director - [facility] Notes/Report: Test(s) 798512-Wawc-Ps-5 Ab (RDL) was developed and its performance [...] Grans (Abs) 0.0 0.0-0.1 x10E3/uL Complement C4, Serum-923317 Reviewed date:02/11/2025 07:43:19 AM Interpretation: Performing Lab:[facility] [place], [address] [facility], [place], Phone - [phone], Director - [facility] Notes/Report: Test(s) 168725-Gqii-Df-0 Ab (RDL) was developed and its performance characteristics determined by [facility]. It has not been cleared or approved by the Food and Drug Administration. Complement C4, Serum 18 12-38 mg/dL XR CERVICAL SPINE 4-5 VIEWS Reviewed date:11/19/2024 04:14:57 PM Interpretation: Performing Lab: Notes/Report: Note See Note [facility], a member of [employer] Patient Name: MARÍA PHILLIPS Date of : 1965 Reason for Exam: OTHER Exam Date: 11/18/2024 [id number] EST Report Status: Final Ordering Provider: IKER [...] to the prior neck CTA. Telerad TL (50037) -------- FINAL REPOR T -------- Dictated By: Dayami Walker i Dictated Date: 11/19/2024 13:40 ET Assigned Physician: Dayami Diehl Reviewed and Electronically Signed By: Dayami Diehl Signed Date: 025 13:45 ET Workstation ID: [id number] Transcribed By: Self Edit Transcribed Date: 11/19/2024 13:40 ET C REACTIVE PROTEIN, HIGH SEN SITIVITY Reviewed [...] 250-450 mcg/dL Iron Saturation 10 15-50 % COMPREHENSIVE METABOLIC PANE L Reviewed date:10/28/2024 04:25:35 [...] Notes/Report: Vit D, 25-Hydroxy 40.6 30.0-80.0 ng/mL CAMILO IFA WITH TITER AND GIOVANNA SAMSON Reviewed date:11/01/2024 07:38:11 AM Interpretation: Performing Lab: Notes/Report: CAMILO Negative Negative LIPID PANEL WITH REFLEX TO D IRECT [...] K/mcL Immature Granulocytes Absolute 0.05 0.00-0.03 K/mcL CREATINE KINASE Reviewed date:03/24/2025 07:44:57 AM Interpretation: Performing Lab: Notes/Report: Total CK 87 22-269 unit/L EKG (Not yet reviewed by pro vider) Interpretation: Performing Lab: Notes/Report: ECGDiastolicBP 68 ECGHr 73 ECGPRInterval 158 ECGPWaveAxis 34 ECGQRSDuration 78 ECGQrsWaveAxis 33 ECGQTcInterval 404 ECGQTInterval 382 ECGSystolicBP 116 ECGTWaveAxis 31 RR_DiastolicBP 0 RR_MaxRRInterval 0 RR_MeanHR 0 RR_MeanRRInterval 0 RR_MinRRInterval 0 RR_NumBeats 0 RR_NumNormalBeats 0 RR_SystolicBP 0 CULTURE ANAEROBIC WITH GRAM STAIN (Not yet reviewed by provider) Interpretation: Performing Lab: Notes/Report: Staphylococcus warneri Specimen Source: Swab Collected: Jul 16, 2025 13:40:00 SPARSE Organism: STAPHYLOCOCCUS WARNERI Penicillin results to follow Antibiotics ABBEY Interpretation The organism value for this result has been updated. These results have been appended to the previously preliminary verified report. Edited result: Previously reported as Gram Positive Cocci on 07/20/2025 at 0832 EDT. Oxacillin Susc Islt 0.25 S Streptococcus viridans group Gentamicin Islt ABBEY 0.5 S SPARSE Ciprofloxacin Islt ABBEY 0.5 S levoFLOXacin Islt ABBEY 0.12 S Susceptibility testing not routinely performed. If further therapeutic information is required, please consult an infectious disease specialist. Erythromycin Susc Islt 8 R The organism value for this result has been updated. These results have been appended to the previously preliminary verified report. Clindamycin Susc Islt 0.25 S This is an edited result. Previous organism was Gram Positive Cocci on 07/20/2025 at 0832 EDT. Vancomycin Susc Islt 1 S Bacillus species,not anthracis Tetracycline Islt ABBEY 1 S SPARSE The organism value for this result has been updated. These results have been appended to the previously preliminary verified report. rifAMPin Susc Islt 0.5 S Gram Stain Result Refer to Aerobic cul ture for gram stain results. Culture, Anaerobic No Growth of Anaerobes. Culture, Anaerobic STAPHYLOCOCCUS WARNERI Culture, Anaerobic STREPTOCOCCUS VIRIDA NS GROUP Culture, Anaerobic BACILLUS SPECIES, NO T ANTHRACIS Report Susceptibility Report TSH Rfx on Abnormal to Free [id number] Reviewed date:07/15/2025 03:58:09 PM Interpretation: Performing Lab:[facility] [place], [address] [facility], Phone - [phone], Director - MDJodry Notes/Report: TSH 0.436 0.450-4.500 uIU/mL T4,Free (Direct) 1.14 0.82-1.77 ng/dL Comp. Metabolic Panel (14)-3 40813 Reviewed date:07/15/2025 08:25:45 AM Interpretation: Performing Lab:[facility] [place], [address] [facility], Phone - [phone], Director - MDJodry Notes/Report: Glucose 75 70-99 mg/dL BUN 9 6-24 mg/dL Creatinine 0.76 0.57-1.00 mg/dL eGFR 91 >59 mL/min/1.73 BUN/Creatinine Ratio 12 9-23 Sodium 140 134-144 mmol/L Potassium 4.6 3.5-5.2 mmol/L Chloride 102 96-106 mmol/L Carbon Dioxide, Total 21 20-29 mmol/L Calcium 9.4 8.7-10.2 mg/dL Protein, Total 6.7 6.0-8.5 g/dL Albumin 4.3 3.8-4.9 g/dL Globulin, Total 2.4 1.5-4.5 g/dL Bilirubin, Total 0.2 0.0-1.2 mg/dL Alkaline Phosphatase 97 44-121 IU/L Effective July 21, 2025 Alkaline Phosphatase reference interval will be changing to: Age Male Female 0 - 5 days 47 - 127 47 - 127 6 - 10 days 29 - 242 29 - 242 11 - 20 days 109 - 357 109 - 357 21 - 30 days 94 - 494 94 - 494 1 - 2 months 149 - 539 149 - 539 3 - 6 months 131 - 452 131 - 452 7 - 11 months 117 - 401 117 - 401 12 months - 6 years 158 - 369 158 - 369 7 - 12 years 150 - 409 150 - 409 13 years 156 - 435 78 - 227 14 years 114 - 375 64 - 161 15 years 88 - 279 56 - 134 16 years 74 - 207 51 - 121 17 years 63 - 161 47 - 113 18 - 20 years 51 - 125 42 - 106 21 - 50 years 47 - 123 41 - 116 51 - 80 years 49 - 135 51 - 125 >80 years 48 - 129 48 - 129 AST (SGOT) 26 0-40 IU/L ALT (SGPT) 22 0-32 IU/L CBC With Differential/Platel et-[id number] Reviewed date:07/15/2025 08:25:37 AM Interpretation: Performing Lab:[facility], [address] [place] [address], [place], Phone - [phone], Director - Elsa Notes/Report: WBC 7.7 3.4-10.8 x10E3/uL RBC 3.91 3.77-5.28 x10E6/uL Hemoglobin 13.2 11.1-15.9 g/dL Hematocrit 39.3 34.0-46.6 % MCV 101 79-97 fL MCH 33.8 26.6-33.0 pg MCHC 33.6 31.5-35.7 g/dL RDW 12.6 11.7-15.4 % Platelets 327 150-450 x10E3/uL Neutrophils 48 Not Estab. % Lymphs 40 Not Estab. % Monocytes 7 Not Estab. % Eos 4 Not Estab. % Basos 1 Not Estab. % Neutrophils (Absolute) 3.8 1.4-7.0 x10E3/uL Lymphs (Absolute) 3.1 0.7-3.1 x10E3/uL Monocytes(Absolute) 0.6 0.1-0.9 x10E3/uL Eos (Absolute) 0.3 0.0-0.4 x10E3/uL Baso (Absolute) 0.0 0.0-0.2 x10E3/uL Immature Granulocytes 0 Not Estab. % Immature Grans (Abs) 0.0 0.0-0.1 x10E3/uL Ferritin-[id number] Reviewed date:07/15/2025 08:25:45 AM Interpretation: Performing Lab:[facility] [place], [address] [facility], Phone - [phone], Director - Elsa Notes/Report: Ferritin 85 15-150 ng/mL Iron and TIBC-646332 Reviewed date:07/15/2025 03:58:09 PM Interpretation: Performing Lab:[facility] [place], [address] [facility], Phone - [phone], Director - Elsa Notes/Report: Iron Bind.Cap.(TIBC) 371 250-450 ug/dL UIBC 318 131-425 ug/dL Iron 53 27-159 ug/dL Iron Saturation 14 15-55 % TISSUE EXAM Reviewed date:06/08/2025 11:10:45 PM Interpretation: [...] 10% NB formalin fixed and paraffin embedded. NM HEPATOBILIARY SYSTEM IMAG ING Reviewed date:05/15/2025 03:07:20 PM Interpretation: Performing Lab: Notes/Report: Note See Note [facility], a member of [employer] Patient Name: MARÍA PHILLIPS Date of : 1965 Reason for Exam: Abdominal pain, upper, recurrent, post cholecystectomy Exam Date: 05/15/2025 [id number] EST Report Status: Final Ordering Provider: ALEXEI CARTER PCP: IKER ROBLERO History: Abdominal p ain, chronic, right upper quadrant. Prior cholecystectomy. Comparison: [...] bowel by 10 minutes. There is normal wash out of hepatic activity. IMPRESSION: Impression: Normal hepatobiliary scintigraphy status post cholecystectomy. Telerad TL ([id number]) -------- FINAL REPOR T -------- Dictated By: Dayami Walker i Dictated Date: 05/15/2025 11:46 ET Assigned Physician: Dayami Diehl Reviewed and Electronically Signed By: Dayami Diehl Signed Date: 025 11:48 ET Workstation ID: [id number] Transcribed By: Self Edit Transcribed Date: 05/15/2025 11:46 ET CALPROTECTIN, STOOL Reviewed date:05/12/2025 05:08:37 PM Interpretation: Performing Lab: Notes/Report: Calprotectin, Fecal 16.5 <50 mcg/g <50 mcg/g Normal 50 - 120 mcg/g Borderline >120 mcg/g Abnormal Borderline results suggest repeat testing in 4 to 6 weeks. Test performed at [facility], [facility] [place] [address] Krystina Austin MD, PhD - Chief [employer] HELICOBACTER PYLORI ANTIGEN, STOOL Reviewed date:05/13/2025 04:03:38 PM Interpretation: Performing Lab: Notes/Report: Helicobacter Pylori Ag DETECTED Not detected This test was performed at [facility] using a chemiluminescent immunoassay intended [...] Food and Drug Administration. Test performed at [facility], [address] , [place] [id number] Krystina Austin MD, PhD - Chief [employer]per GASTROINTESTINAL PATHOGENS DARNELL STUDY Reviewed date:05/08/2025 03:43:25 PM Interpretation: Performing [...] CLOSTRIDIOIDES DIFFICILE, NO ADDITIONAL TESTING IS NECESSARY. URINALYSIS WITH REFLEX MICRO SCOPIC AND CULTURE Reviewed date:03/24/2025 07:44:34 AM Interpretation: Performing Lab: Notes/Report: Specific [place] Urine 1.010 1.003-1.030 pH, Urine 8.0 5.0-8.0 [...] [facility] [employer] Patient Name: MARÍA PHILLIPS Date of : 1965 Reason for Exam: pain Exam Date: 03/11/2025 [id number] EST Report Status: Final Ordering Provider: DAVID [...] Signed By: Mauro Wright Signed Date: 025 11:03 ET Workstation ID: [id number] Transcribed By: Self Edit Transcribed Date: 03/11/2025 11:02 ET FERRITIN Reviewed date:03/05/2025 07:31:08 PM Interpretation: Performing [...] Lab: Notes/Report: Vitamin B-12 463 250-900 pcg/mL THYROID STIMULATING HORMONE WITH REFLEX TO FREE T4 AND FREE T3 Reviewed date:03/06/2025 07:35:25 AM Interpretation: Performing Lab: Notes/Report: TSH 1.43 0.40-4.00 mcIU/mL COMPREHENSIVE METABOLIC PANE L Reviewed date:03/05/2025 07:31:45 [...] Performing Lab: Notes/Report: Magnesium 2.3 1.9-2.6 mg/dL VITAMIN D 25 HYDROXY Reviewed date:03/06/2025 07:35:20 AM Interpretation: Performing Lab: Notes/Report: Vit D, 25-Hydroxy 30.1 30.0-80.0 ng/mL US HEAD NECK SOFT TISSUE Reviewed date:02/10/2025 05:04:59 PM Interpretation: Performing Lab: Notes/Report: Note See Note [facility], a member of [facility] Patient Name: MARÍA PHILLIPS Date of : 1965 Reason for Exam: ENLARGED LYMPHNODE Exam Date: 02/08/2025 [id number] EST Report Status: Final Ordering Provider: CHINO [...] o f altered echotexture. The skin and superfi cial muscular fascia appear well defined. There is no abnormal color signal. IMPRESSION: No etiology for symp toms demonstrated. The patient should b e managed on the basis of the clinical exam, history and any pertinent laboratory values -------- FINAL REPOR T -------- Dictated By: Alexey Vera Dictated Date: 02/08/2025 15:52 ET Assigned Physician: Alexey Morton Reviewed and Electronically Signed By: Alexey Morton Signed Date: 025 15:55 ET Workstation ID: [id number] Transcribed By: Self Edit Transcribed Date: 02/08/2025 15:52 ET XR KNEE 4+ VIEWS BILAT Reviewed date:01/27/2025 08:06:07 AM Interpretation: Performing Lab: Notes/Report: Note See Note [facility], a member of [facility] Patient Name: MARÍA PHILLIPS Date of : 1965 Reason for Exam: ilateral knee pain Exam Date: 01/22/2025 [id number] EST Report Status: Final Ordering Provider: CELIA [...] notch. No seeming effusion. Neutral alignment. XR SHOULDER 2+ VIEWS BILAT Reviewed date:01/08/2025 05:02:44 PM Interpretation: Performing Lab: Notes/Report: Note See Note [facility], a member of [facility] Patient Name: MARÍA PHILLIPS Date of : 1965 Reason for Exam: bilateral shoulder pain Exam Date: 01/08/2025 [id number] EST Report Status: Final Ordering Provider: NICHELLE [...] tendinitis and narro wing of subacromial space XR ESOPHAGRAM Reviewed date:01/01/2025 09:27:26 AM Interpretation: Performing Lab: Notes/Report: Note See Note [facility], a member of [facility] Patient Name: MARÍA PHILLIPS Date of : 1965 Reason for Exam: DYSPHAGIA Exam Date: 12/26/2024 [id number] EST Report Status: Final Ordering Provider: BARBARA MORRISSEY PCP: IKER ROBLERO FINDINGS: Double contrast esophagram performed. COMPARISON: Esophagr am March 04, 2022 HISTORY: Patient is a 59-year-old female with history of globus sensation. Epigastric pain. Search Planner radiographs: 1 view chest radiograph demonstrates cardiac [...] Signed Date: 025 08:28 ET Workstation ID: [id number] Transcribed By: Self Edit Transcribed Date: 12/26/2024 13:36 ET Resident/PA/AERIAL TRAM OPERATOR: Lidia Godinez HEMOGLOBIN A1C Reviewed date:10/29/2024 11:55:59 AM Interpretation: Performing Lab: Notes/Report: Hemoglobin A1C 5.4 <6.5 % Mean Bld Glu Estim. 108 CBC WITH AUTO DIFFERENTIAL Reviewed date:03/05/2025 07:32:33 [...] K/mcL Immature Granulocytes Absolute 0.03 0.00-0.03 K/mcL Reason For Referral Reason [facility] Diagnosis 1 Shoulder pain, unspe cified chronicity, unspecified laterality (M25.519) Referral Organization [facility] [address] Referring Provider First Name IKER Referring Provider Last Name SMOCK Referring Provider Speciality Preventive Medicine Referred Provider [facility]ty [facility] General Notes Letitia Cox 025 10:47:57 AM > Referral faxed over to [facility] for Bilateral shoulder pain P. [phone] Referral Priority Routine Reason Sleep Medicine [facility]; sleep study; loud snoring Diagnosis 1 Loud snoring (R06.83 ) Referral Organization [facility] [address] Referring Provider First Name IKER Referring Provider Last Name SMOCK Referring Provider Speciality Preventive Medicine Referred Provider Specialty Sleep Medici ne General Notes [address] [facility] [address] (p) [phone], (f) [phone] Clinical Notes Maryann Cox 02:10:39 PM > I called the office and they informed me that they had reached out to the patient and are just waiting for a callback to schedule an appt Referral Priority Routine Reason pain management : ri ght rib pain Diagnosis 1 Rib pain on right si de (R07.81) Referral Organization [facility] [address] Referring Provider First Name IKER Referring Provider Last Name SMOCK Referring Provider Speciality Preventive Medicine Referred Provider Specialty Pain Medicin e Clinical Notes Zoila Narayanan 04/25 09:57:57 AM > Family [facility], Address: [address] [place] [address], , Fax number: , Maryann Cox 06/17/2025 02:17:36 PM > The patient was scheduled for 06/05 but she no showed and has not rescheduled yet Referral Priority Routine Reason [facility]; easy bruising Diagnosis 1 Easy bruising (R23.3 ) Referral Organization [facility] [address] Referring Provider First Name IKER Referring Provider Last Name SMOCK Referring Provider Speciality Preventive Medicine Referred Provider Specialty Dermatology General Notes [address] [place], (p) [phone], (f) [phone] Clinical Notes Caren Narayanan 08:43:03 AM > referral faxed with notes Referral Priority Routine Reason Dr. Hoffman Diagnosis 1 Pulmonary nodule (R9 1.1) Diagnosis 2 Centrilobular emphys christine (J43.2) Referral Organization [facility] [address] Referring Provider First Name IKER Referring Provider Last Name SMOCK Referring Provider Speciality Preventive Medicine Referred Provider Specialty Pulmonology General Notes XAVIER VILLANUEVA 06/09 08:34:07 AM > Referral faxed, Dr Hoffman - Pulmonology and Sleep Medicine, [address] [place] [address], , Clinical Notes Kenny, Maryann 10/2025 02:17:04 PM > The patient was scheduled for 06/05 but she no showed and has not rescheduled yet Referral Priority Routine Reason [facility] Diagnosis 1 Chronic pain syndrom e (G89.4) Diagnosis 2 Cervical pain (M54.2 ) Referral Organization [facility] [address] Referring Provider First Name IKER Referring Provider Last Name SMOCK Referring Provider Speciality Preventive Medicine Referred Provider Specialty Orthopedic S urgery General Notes XAVIER VILLANUEVA 06/26 08:13:11 AM > Referral has been faxed, [facility], [address] [facility], [place] [address], , Clinical Notes Maryann Cox 02:25:30 PM > I called the office, and they informed me they had reached out to the patient multiple times with no response. I then spoke with the patient, who stated she was not aware a referral had been sent. She said she will call the office back Referral Priority Stat Reason Spine Surgery - [facility] Diagnosis 1 Lumbar back pain (M5 4.50) Diagnosis 2 Chronic lumbar radic ulopathy (M54.16) Referral Organization [facility] [address] Referring Provider First Name IKER Referring Provider Last Name ANNIKA Referring Provider Speciality Preventive Medicine Referred Provider Specialty Spinal Cord Injury Medicine General Notes XAVIER VILLANUEVA 07/08 03:54:08 PM > referral has been initiated & faxed, [facility]- Spine Surgery, [address], [address], [place], , Most recent MRI was done at [facility] 01/14/25 Clinical Notes Maryann Cox 01/2025 02:17:15 PM > I called [facility] Spine Surgery, and they are requesting an updated MRI taken within the past year. They asked that we fax it to their office. Once received, they will review the patient's records and contact her to schedule., Maryann Cox 07/17/2025 11:04:32 AM > Scheduled for 07/23 at 1 pm. Pt aware Referral Priority Stat Medications Medication SIG (Take, [...] Status W/U Status Risk Notes Problem Hyperkalemia (99464600) Hyperkalemia (E87.5) Active confirmed Problem Chronic pain syndrome (544408363) Chronic pain syndrome (G89.4) Active confirmed Problem Centrilobular emphysema (53271152) Centrilobular emphysema (J43.2) Active confirmed Problem Pulmonary nodule (602316590) Pulmonary nodule (R91.1) Active confirmed Problem Breathing painful (61789735) Rib pain on right side (R07.81) Active confirmed Problem Tremor (06713556) Tremor (R25.1) Active confirm ed Problem Chronic fatigue syndrome (12988376) Chronic fatigue (R53.82) Active confirmed Problem Paresthesia (finding) (05191138) Paresthesias (R20.2) Active confirmed Problem Lumbar radiculopathy (597710179) Chronic lumbar radiculopathy (M54.16) Active confirmed Problem Cervical pain (65650169) Cervical pain (M54.2) Active confirmed Problem Mixed anxiety and depressive disorder (188509399) Depression with anxiety (F41.8) Active confirmed Problem 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 Problem Inactive tuberculosis (finding) (86445565) History of latent tuberculosis (Z86.15) Active confirmed Problem Rheumatoid arthritis (39115323) Rheumatoid arthritis involving multiple sites, unspecified whether rheumatoid factor present (M06.9) Active confirmed Problem Rheumatoid arthritis (09455335) Rheumatoid arthritis involving multiple sites with positive rheumatoid factor (M05.79) Active confirmed Problem Lymphadenopathy (48129946) Lymphadenopathy, axillary (R59.0) Active confirmed Problem Cervical spondylosis (936309778) Cervical spondylosis (M47.812) Active confirmed Problem General weakness (54464085) Generalized weakness (R53.1) Active confirmed Problem 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 Vital Signs Heart Rate 92 /min 06/18/2025 Blood pressure diastolic 84 mm Hg 06/18/2025 Oximetry 97 % 06/18/2025 Height 61 in 06/18/2025 Blood pressure systolic 130 mm Hg 06/18/2025 Weight 162.2 lbs 06/18/2025 BMI 30.64 kg/m2 06/18/2025 Encounters Encounter Location Date Provider Diagnosis [facility] [address] [place] [address] 10/28/2024 IKER ANNIKA Rheumatoid arthritis involving multiple sites, unspecified whether rheumatoid factor present M06.9 ; Tremor R25.1 ; Slipped rib syndrome M94.0 ; History of latent tuberculosis Z86.15 ; Depression with anxiety F41.8 and Rock's disease E06.3 [facility] [address] [address] 11/18/2024 IKER ROBLERO Tremor R25.1 ; Cervi veronica spondylosis M47.812 ; Rock's disease E06.3 ; Pain in right arm M79.601 ; Pain in left arm M79.602 ; History of recent fall Z91.81 ; Rheumatoid arthritis involving multiple sites with positive rheumatoid factor M05.79 ; Slipped rib syndrome M94.0 and Depression with anxiety F41.8 [facility] [address] [address] 01/22/2025 CHINO BIRKS Neck pain on right s angela M54.2 ; Rheumatoid arthritis involving multiple sites with positive rheumatoid factor M05.79 ; Slipped rib syndrome M94.0 ; Rock's disease E06.3 and Depression with anxiety F41.8 [facility] [address] [address] 02/03/2025 CHINO BIRKS Lymphadenopathy, axillary R59.0 ; Rheumatoid arthritis involving multiple sites, unspecified whether rheumatoid factor present M06.9 ; Rock's disease E06.3 ; Slipped rib syndrome M94.0 ; Anxiety, generalized F41.1 and Tendon calcification M65.80 [facility] [address] [address] 03/05/2025 IKER ROBLERO Rib pain on right si de R07.81 ; Annual physical exam Z00.00 ; Chronic fatigue R53.82 ; Hyperkalemia E87.5 ; Slipped rib syndrome M94.0 ; Depression with anxiety F41.8 and Rheumatoid arthritis involving multiple sites with positive rheumatoid factor M05.79 [facility] [address] [address] 03/21/2025 IKER ROBLERO Heart palpitations R00.2 ; Weakness R53.1 and Dyspnea on exertion R06.09 [facility] [address] [address] 04/23/2025 IKER ROBLERO Depression with anxi ety F41.8 ; Heavy alcohol use F10.90 ; Chronic pain syndrome G89.4 ; Slipped rib syndrome M94.0 ; Rheumatoid arthritis involving multiple sites with positive rheumatoid factor M05.79 ; Pulmonary nodule R91.1 ; History of latent tuberculosis Z86.15 and Loud snoring R06.83 [facility] [address] [place] [address] 05/05/2025 IKER ROBLERO Spontaneous ecchymos es R23.3 ; Skin tear of left upper extremity S41.112A ; Irregular bowel habits R19.8 ; Depression with anxiety F41.8 ; Chronic pain syndrome G89.4 and Rheumatoid arthritis involving multiple sites with positive rheumatoid factor M05.79 [facility] [address] [place] [address] 06/18/2025 IKER ROBLERO Chronic pain syndrom e G89.4 ; Cervical pain M54.2 and Recurrent low back pain M54.50 [facility] [address] [address] 10/29/2024 IKER LEDESMAHAM [facility] [address] [address] 11/04/2024 IKER SMOCK [facility] [address] [address] 11/07/2024 IKER SMOCK [facility] [address] [address] 11/19/2024 IKER SMOCK [facility] [address] [address] 12/03/[facility] [address] [address] 12/13/2024 [facility] [address] [address] 12/13/2024 IKER ROBLERO Generalized weakness R53.1 and Paresthesias R20.2 [facility] [address] [address] 12/16/20[facility] [address] [address] 12/26/2024 [facility] [address] [facility] [address] [address] 12/31/2024 IKER SMOCK [facility] [address] [place] [address] 01/02/[address] SMOCK [facility] [address] [place] [address] 01/07/2025 IKER SMOCK [facility] [address] [place] [address] 01/21/2025 [facility] [address] [place] [address] 01/24/2025 IKER SMOCK [facility] [address] [place] [address] 02/03/2025 IKER SMOCK [facility] [address] [place], [place] 02/03/2025 IKER SMOCK [facility] [address] [place] [address] 02/10/2025 IKER SMOCK [facility] [address] [place], [place] 03/05/2025 IKER SMOCK Chronic fatigue R53. 82 ; Elevated lipids E78.5 ; Anemia due to vitamin B12 deficiency, unspecified B12 deficiency type D51.9 and Vitamin D deficiency E55.9 [facility] [address] [place] [address] 03/05/2025 IKER SMOCK [facility] [address] [place], [place] 03/05/2025 [facility] [address] [place], [place] 03/05/2025 IKER SMOCK [facility] [address] [place] [address] 03/21/2025 [facility] [address] [place] [address] 03/24/2025 IKER SMOCK [facility] [address] [place] [address] 04/22/2025 [facility] [address] [place] [address] 04/25/2025 IKER SMOCK [facility] [address] [place] [address] 05/01/2025 IKER SMOCK [facility] [address] [place] [address] 05/05/2025 IKER SMOCK [facility] [address] [place] [address] 05/06/2025 IKER SMOCK [facility] [address] [place] [address] 05/13/2025 IKER SMOCK [facility] [address] [place] [address] 05/13/2025 IKER SMOCK [facility] [address] [place] [address] 06/03/2025 IKER SMOCK [facility] [address] [place] [address] 06/18/2025 [address]KER SMOCK [facility] [address] [place] [address] 06/19/2025 IKER SMOCK Cervical pain M54.2 ; Cervical spondylosis M47.812 and Chronic pain syndrome G89.[address] [address] [place] [address] 06/25/2025 IKER SMOCK [facility] [address] [place] [address] 07/08/2025 IKER SMOCK [facility] [address] [place] [address] 07/08/2025 IKER SMOCK [facility] [address] [place] [address] 07/09/2025 IKER SMOCK [facility] [address] [place] [address] 07/15/2025 IKER SMOCK Rock's disease E06.3 [facility] [address] [place] [address] 12/09/2024 IKER SMOCK [facility] [address] [place] [address] 12/13/2024 IKER SMOCK [facility] [address] [place] [address] 12/14/2024 IKER SMOCK [facility] [address] [place] [address] 12/14/2024 IKER SMOCK [facility] [address] [place] [address] 12/15/2024 IKER SMOCK [facility] [address] [place] [address] 12/18/2024 IKER SMOCK [facility] [address] [place] [address] 01/01/2025 IKER SMOCK [facility] [address] [place] [address] 01/21/2025 IKER SMOCK [facility] [address] [place] [address] 01/27/2025 IKER SMOCK Breast cancer screen ing by mammogram Z12.31 [facility] [address] [place] [address] 03/21/2025 IKER SMOCK [facility] [address] [place] [address] 04/30/2025 IKER SMOCK [facility] [address] [place] [address] 05/01/2025 IKER SMOCK [facility] [address] [place] [address] 05/01/2025 IKER SMOCK [facility] [address] [place] [address] 06/06/2025 IKER SMOCK [facility] [address] [place] [address] 06/09/2025 IKER SMOCK [facility] [address] [place] [address] 06/14/2025 IKER SMOCK [facility] [address] [place] [address] 06/20/2025 IKER SMOCK [facility] [address] [place] [address] 06/23/2025 IKER SMOCK [facility] [address] [place] [address] 06/30/2025 IKER SMOCK [facility] [address] [place] [address] 07/12/2025 IKER SMOCK Adult general medica l exam Z00.00 and Screening for thyroid disorder Z13.29 [facility] [address] [facility] [address] [place] [address] 07/15/2025 IKER LEDESMAHAM [facility] [address] [facility] [address] [place] [address] 07/16/2025 IKER SMOCK Assessments Encounter Date Diagnosis (ICD Code) Assessment [...] Patient reports history of RA. Follows with furniture cleaner Dr. Clark out of [place]. Has been treated previously with Humira, Enbrel, [...] was diagnosed by Dr. Dubon out of [place], [place]. Taking methocarbamol 750 mg 3 times [...] questions/concerns arise. Case discussed with collaborating physician eVlia Morrison who has reviewed the assessment/plan. Chart, medications, labs, and vital signs reviewed. Dictation completed with the use of [employer] voice recognition software, prone to medical misidentifications [...] Patient reports history of RA. Follows with furniture cleaner Dr. Clark out of [place]. Has been treated previously with Humira, Enbrel, [...] was diagnosed by Dr. Dubon out of [place], [place]. Taking methocarbamol 750 mg 3 times [...] reviewed. Dictation completed with the use of [employer] voice recognition software, prone to medical misidentifications [...] for 11/20/2024. #Recent fall: Patient seen at [facility] ED 11/02/2024 s/p fall at work. [...] diffuse joint pain and fatigue. Follows with furniture cleaner Dr. Clark out of [place], records requested and not yet available for my review. 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 States this was diagnosed by Dr. Dubon out of [place], [place]. Taking methocarbamol 750 mg 3 times [...] reviewed. Dictation completed with the use of [employer] voice recognition software, prone to medical misidentifications [...] for 11/20/2024. #Recent fall: Patient seen at [facility] ED 11/02/2024 s/p fall at work. [...] diffuse joint pain and fatigue. Follows with furniture cleaner Dr. Clark out of [place], records requested and not yet available for my review. 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 States this was diagnosed by Dr. Dubon out of [place], [place]. Taking methocarbamol 750 mg 3 times [...] reviewed. Dictation completed with the use of [employer] voice recognition software, prone to medical misidentifications [...] was diagnosed by Dr. Dubon out of [place], [place]. Taking methocarbamol 750 mg 3 times [...] Dictation was accomplished with the use of [employer] voice recognition software, which is prone to [...] was diagnosed by Dr. Dubon out of [place]. Taking methocarbamol 750 mg 3 times [...] Dictation was accomplished with the use of [employer] voice recognition software, which is prone to [...] was diagnosed by Dr. Dubon out of [place]. Taking methocarbamol 750 mg 3 times [...] Dictation was accomplished with the use of [employer] voice recognition software, which is prone to [...] was diagnosed by Dr. Dubon out of [place], [place]. Taking methocarbamol 750 mg 3 times [...] Dictation was accomplished with the use of [employer] voice recognition software, which is prone to [...] rib syndrome: Follows with Dr. Dubon with [facility]. Underwent repair 12/17/2024. #Ventral hernia: Surgical history [...] arthritis: + Rheumatoid factor (152). Follows with furniture cleaner Dr. Olaf Kaplan out of [place]. Follow-up labs including CAMILO, ESR/CRP, and comprehensive [...] Follows with psychiatric provider Clarice Lara with [facility]. Taking clonazepam 0.5 mg once [...] dysfunction. #Hyperkalemia: Patient reports she was at [facility] ED recently at which time her [...] reviewed. Dictation completed with the use of [employer] voice recognition software, prone to medical misidentifications [...] rib syndrome: Follows with Dr. Dubon with [facility]. Underwent repair 12/17/2024. #Ventral hernia: Surgical history [...] arthritis: + Rheumatoid factor (152). Follows with furniture cleaner Dr. Olaf Kaplan out of [place]. Follow-up labs including CAMILO, ESR/CRP, and comprehensive [...] Follows with psychiatric provider Clarice Lara with [facility]. Taking clonazepam 0.5 mg once [...] dysfunction. #Hyperkalemia: Patient reports she was at [facility] recently at which time her potassium [...] reviewed. Dictation completed with the use of [employer] voice recognition software, prone to medical misidentifications [...] reviewed. Dictation completed with the use of [employer] voice recognition software, prone to medical misidentifications [...] reviewed. Dictation completed with the use of [employer] voice recognition software, prone to medical misidentifications [...] ER follow-up hospital follow-up. María presented to [facility] ED 04/19/2025 with chief complaint of suicidal [...] taking any pain medication. Previously followed with paint sprayer sandblaster Dr. Trivedi who provided steroid injections. Historically [...] with added opioid use. WIll refer to paint sprayer sandblaster with goal of establishing safe pain management regimen. #RA: Follows with Olaf Kaplan MD out of [place]. Discussed possibility of chronic pain being related [...] reviewed. Dictation completed with the use of [employer] voice recognition software, prone to medical misidentifications [...] ER follow-up hospital follow-up. María presented to [facility] ED 04/19/2025 with chief complaint of suicidal [...] taking any pain medication. Previously followed with paint sprayer sandblaster Dr. Trivedi who provided steroid injections. Historically [...] with added opioid use. WIll refer to paint sprayer sandblaster with goal of establishing safe pain management regimen. #RA: Follows with Olaf Kaplan MD out of [place]. Discussed possibility of chronic pain being related [...] reviewed. Dictation completed with the use of [employer] voice recognition software, prone to medical misidentifications [...] Patient requesting urgent colonoscopy per recommendation of [facility] surgeon Jewel Dubon. On review of Dr. [...] gabapentin TID without symptom improvement. Follows with paint sprayer sandblaster Dr. Trivedi. Historically the patient has tried [...] reviewed. Dictation completed with the use of [employer] voice recognition software, prone to medical misidentifications [...] Patient requesting urgent colonoscopy per recommendation of [facility] surgeon Jewel Dubon. On review of Dr. [...] gabapentin TID without symptom improvement. Follows with paint sprayer sandblaster Dr. Trivedi. Historically the patient has tried [...] reviewed. Dictation completed with the use of [employer] voice recognition software, prone to medical misidentifications [...] TID without significant symptom improvement. Follows with paint sprayer sandblaster Dr. Trivedi, orthopedic provider Nichelle Carrillo PA-C [...] reviewed. Dictation completed with the use of [employer] voice recognition software, prone to medical misidentifications [...] TID without significant symptom improvement. Follows with paint sprayer sandblaster Dr. Trivedi, orthopedic provider Nichelle Carrillo PA-C [...] reviewed. Dictation completed with the use of [employer] voice recognition software, prone to medical misidentifications and grammatical errors. All errors are unintentional. Although the practitioner does try to identify and correct errors, some may be present. Please do not hesitate to contact the practitioner for clarification. Total time was 60 minutes spent with >50% on coordination of care and patient education. 06/19/2025 Cervical pain (ICD-10 - M54.2) 07/12/2025 Adult general medical exam (ICD-10 - Z00.00) 07/15/2025 Rock's disease (ICD-10 - E06.3) 03/05/2025 Elevated lipids (ICD-10 - E78.5) 07/12/2025 Screening for thyroid disorder (ICD-10 - Z13.29) 06/19/2025 Cervical spondylosis (ICD-10 - M47.812) 06/18/2025 Recurrent low back pain (ICD-10 - [...] TID without significant symptom improvement. Follows with paint sprayer sandblaster Dr. Trivedi, orthopedic provider Nichelle Carrillo PA-C [...] reviewed. Dictation completed with the use of [employer] voice recognition software, prone to medical misidentifications [...] Patient requesting urgent colonoscopy per recommendation of [facility] surgeon Jewel Dubon. On review of Dr. [...] gabapentin TID without symptom improvement. Follows with paint sprayer sandblaster Dr. Trivedi. Historically the patient has tried [...] reviewed. Dictation completed with the use of [employer] voice recognition software, prone to medical misidentifications [...] reviewed. Dictation completed with the use of [employer] voice recognition software, prone to medical misidentifications [...] ER follow-up hospital follow-up. María presented to [facility] ED 04/19/2025 with chief complaint of suicidal [...] taking any pain medication. Previously followed with paint sprayer sandblaster Dr. Trivedi who provided steroid injections. Historically [...] with added opioid use. WIll refer to paint sprayer sandblaster with goal of establishing safe pain management regimen. #RA: Follows with Olaf Kaplan MD out of [place]. Discussed possibility of chronic pain being related [...] reviewed. Dictation completed with the use of [employer] voice recognition software, prone to medical misidentifications [...] rib syndrome: Follows with Dr. Dubon with [facility]. Underwent repair 12/17/2024. #Ventral hernia: Surgical history [...] arthritis: + Rheumatoid factor (152). Follows with furniture cleaner Dr. Olaf Kaplan out of [place]. Follow-up labs including CAMILO, ESR/CRP, and comprehensive [...] Follows with psychiatric provider Clarice Lara with [facility]. Taking clonazepam 0.5 mg once [...] dysfunction. #Hyperkalemia: Patient reports she was at [facility] ED recently at which time her [...] reviewed. Dictation completed with the use of [employer] voice recognition software, prone to medical misidentifications [...] was diagnosed by Dr. Dubon out of [place], [place]. Taking methocarbamol 750 mg 3 times [...] Dictation was accomplished with the use of [employer] voice recognition software, which is prone to [...] was diagnosed by Dr. Dubon out of [place], [place]. Taking methocarbamol 750 mg 3 times [...] Dictation was accomplished with the use of [employer] voice recognition software, which is prone to [...] for 11/20/2024. #Recent fall: Patient seen at [facility] ED 11/02/2024 s/p fall at work. [...] diffuse joint pain and fatigue. Follows with furniture cleaner Dr. Clark out of [place], records requested and not yet available for my review. 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 States this was diagnosed by Dr. Dubon out of [place], [place]. Taking methocarbamol 750 mg 3 times [...] reviewed. Dictation completed with the use of [employer] voice recognition software, prone to medical misidentifications [...] Patient reports history of RA. Follows with furniture cleaner Dr. Clark out of [place]. Has been treated previously with Humira, Enbrel, [...] was diagnosed by Dr. Dubon out of [place], [place]. Taking methocarbamol 750 mg 3 times [...] reviewed. Dictation completed with the use of [employer] voice recognition software, prone to medical misidentifications [...] for 11/20/2024. #Recent fall: Patient seen at [facility] ED 11/02/2024 s/p fall at work. [...] diffuse joint pain and fatigue. Follows with furniture cleaner Dr. Clark out of [place], records requested and not yet available for my review. 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 States this was diagnosed by Dr. Dubon out of [place], [place]. Taking methocarbamol 750 mg 3 times [...] reviewed. Dictation completed with the use of [employer] voice recognition software, prone to medical misidentifications [...] Patient reports history of RA. Follows with furniture cleaner Dr. Clark out of [place]. Has been treated previously with Humira, Enbrel, [...] was diagnosed by Dr. Dubon out of [place], [place]. Taking methocarbamol 750 mg 3 times [...] reviewed. Dictation completed with the use of [employer] voice recognition software, prone to medical misidentifications [...] was diagnosed by Dr. Dubon out of [place]. Taking methocarbamol 750 mg 3 times [...] Dictation was accomplished with the use of [employer] voice recognition software, which is prone to [...] was diagnosed by Dr. Dubon out of [place]. Taking methocarbamol 750 mg 3 times [...] Dictation was accomplished with the use of [employer] voice recognition software, which is prone to [...] rib syndrome: Follows with Dr. Dubon with [facility]. Underwent repair 12/17/2024. #Ventral hernia: Surgical history [...] arthritis: + Rheumatoid factor (152). Follows with furniture cleaner Dr. Olaf Kaplan out of [place]. Follow-up labs including CAMILO, ESR/CRP, and comprehensive [...] Follows with psychiatric provider Clarice Lara with [facility]. Taking clonazepam 0.5 mg once [...] dysfunction. #Hyperkalemia: Patient reports she was at [facility] ED recently at which time her [...] reviewed. Dictation completed with the use of [employer] voice recognition software, prone to medical misidentifications [...] Patient requesting urgent colonoscopy per recommendation of [facility] surgeon Jewel Dubon. On review of Dr. [...] gabapentin TID without symptom improvement. Follows with paint sprayer sandblaster Dr. Trivedi. Historically the patient has tried [...] reviewed. Dictation completed with the use of [employer] voice recognition software, prone to medical misidentifications [...] ER follow-up hospital follow-up. María presented to [facility] ED 04/19/2025 with chief complaint of suicidal [...] taking any pain medication. Previously followed with paint sprayer sandblaster Dr. Trivedi who provided steroid injections. Historically [...] with added opioid use. WIll refer to paint sprayer sandblaster with goal of establishing safe pain management regimen. #RA: Follows with Olaf Kaplan MD out of [place]. Discussed possibility of chronic pain being related [...] reviewed. Dictation completed with the use of [employer] voice recognition software, prone to medical misidentifications [...] Patient requesting urgent colonoscopy per recommendation of [facility] surgeon Jewel Dubon. On review of Dr. [...] gabapentin TID without symptom improvement. Follows with paint sprayer sandblaster Dr. Trivedi. Historically the patient has tried [...] reviewed. Dictation completed with the use of [employer] voice recognition software, prone to medical misidentifications [...] ER follow-up hospital follow-up. María presented to [facility] ED 04/19/2025 with chief complaint of suicidal [...] taking any pain medication. Previously followed with paint sprayer sandblaster Dr. Trivedi who provided steroid injections. Historically [...] with added opioid use. WIll refer to paint sprayer sandblaster with goal of establishing safe pain management regimen. #RA: Follows with Olaf Kaplan MD out of [place]. Discussed possibility of chronic pain being related [...] reviewed. Dictation completed with the use of [employer] voice recognition software, prone to medical misidentifications [...] rib syndrome: Follows with Dr. Dubon with [facility]. Underwent repair 12/17/2024. #Ventral hernia: Surgical history [...] arthritis: + Rheumatoid factor (152). Follows with furniture cleaner Dr. Olaf Kaplan out of [place]. Follow-up labs including CAMILO, ESR/CRP, and comprehensive [...] Follows with psychiatric provider Clarice Lara with [facility]. Taking clonazepam 0.5 mg once [...] dysfunction. #Hyperkalemia: Patient reports she was at [facility] ED recently at which time her [...] reviewed. Dictation completed with the use of [employer] voice recognition software, prone to medical misidentifications [...] was diagnosed by Dr. Dubon out of [place], [place]. Taking methocarbamol 750 mg 3 times [...] Dictation was accomplished with the use of [employer] voice recognition software, which is prone to [...] was diagnosed by Dr. Dubon out of [place]. Taking methocarbamol 750 mg 3 times [...] Dictation was accomplished with the use of [employer] voice recognition software, which is prone to [...] for 11/20/2024. #Recent fall: Patient seen at [facility] ED 11/02/2024 s/p fall at work. [...] diffuse joint pain and fatigue. Follows with furniture cleaner Dr. Clark out of [place], records requested and not yet available for my review. 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 States this was diagnosed by Dr. Dubon out of [place], [place]. Taking methocarbamol 750 mg 3 times [...] reviewed. Dictation completed with the use of [employer] voice recognition software, prone to medical misidentifications [...] Patient reports history of RA. Follows with furniture cleaner Dr. Clark out of [place]. Has been treated previously with Humira, Enbrel, [...] was diagnosed by Dr. Dubon out of [place]. Taking methocarbamol 750 mg 3 times [...] reviewed. Dictation completed with the use of [employer] voice recognition software, prone to medical misidentifications [...] for 11/20/2024. #Recent fall: Patient seen at [facility] ED 11/02/2024 s/p fall at work. [...] diffuse joint pain and fatigue. Follows with furniture cleaner Dr. Clark out of [place], records requested and not yet available for my review. 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 States this was diagnosed by Dr. Dubon out of [place], [place]. Taking methocarbamol 750 mg 3 times [...] reviewed. Dictation completed with the use of [employer] voice recognition software, prone to medical misidentifications [...] Patient reports history of RA. Follows with furniture cleaner Dr. Clark out of [place]. Has been treated previously with Humira, Enbrel, [...] was diagnosed by Dr. Dubon out of [place]. Taking methocarbamol 750 mg 3 times [...] reviewed. Dictation completed with the use of [employer] voice recognition software, prone to medical misidentifications [...] was diagnosed by Dr. Dubon out of [place]. Taking methocarbamol 750 mg 3 times [...] Dictation was accomplished with the use of [employer] voice recognition software, which is prone to [...] rib syndrome: Follows with Dr. Dubon with [facility]. Underwent repair 12/17/2024. #Ventral hernia: Surgical history [...] arthritis: + Rheumatoid factor (152). Follows with furniture cleaner Dr. Olaf Kaplan out of [place]. Follow-up labs including CAMILO, ESR/CRP, and comprehensive [...] Follows with psychiatric provider Clarice Lara with [facility]. Taking clonazepam 0.5 mg once [...] dysfunction. #Hyperkalemia: Patient reports she was at [facility] ED recently at which time her [...] reviewed. Dictation completed with the use of [employer] voice recognition software, prone to medical misidentifications [...] Patient requesting urgent colonoscopy per recommendation of [facility] surgeon Jewel Dubon. On review of Dr. [...] gabapentin TID without symptom improvement. Follows with paint sprayer sandblaster Dr. Trivedi. Historically the patient has tried [...] reviewed. Dictation completed with the use of [employer] voice recognition software, prone to medical misidentifications [...] ER follow-up hospital follow-up. María presented to [facility] ED 04/19/2025 with chief complaint of suicidal [...] taking any pain medication. Previously followed with paint sprayer sandblaster Dr. Trivedi who provided steroid injections. Historically [...] with added opioid use. WIll refer to paint sprayer sandblaster with goal of establishing safe pain management regimen. #RA: Follows with Olaf Kaplan MD out of [place]. Discussed possibility of chronic pain being related [...] reviewed. Dictation completed with the use of [employer] voice recognition software, prone to medical misidentifications [...] ER follow-up hospital follow-up. María presented to [facility] ED 04/19/2025 with chief complaint of suicidal [...] taking any pain medication. Previously followed with paint sprayer sandblaster Dr. Trivedi who provided steroid injections. Historically [...] with added opioid use. WIll refer to paint sprayer sandblaster with goal of establishing safe pain management regimen. #RA: Follows with Olaf Kaplan MD out of [place]. Discussed possibility of chronic pain being related [...] reviewed. Dictation completed with the use of [employer] voice recognition software, prone to medical misidentifications [...] rib syndrome: Follows with Dr. Dubon with [facility]. Underwent repair 12/17/2024. #Ventral hernia: Surgical history [...] arthritis: + Rheumatoid factor (152). Follows with furniture cleaner Dr. Olaf Kaplan out of [place]. Follow-up labs including CAMILO, ESR/CRP, and comprehensive [...] Follows with psychiatric provider Clarice Lara with [facility]. Taking clonazepam 0.5 mg once [...] dysfunction. #Hyperkalemia: Patient reports she was at [facility] ED recently at which time her [...] reviewed. Dictation completed with the use of [employer] voice recognition software, prone to medical misidentifications [...] for 11/20/2024. #Recent fall: Patient seen at [facility] ED 11/02/2024 s/p fall at work. [...] diffuse joint pain and fatigue. Follows with furniture cleaner Dr. Clark out of [place], records requested and not yet available for my review. 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 States this was diagnosed by Dr. Dubon out of [place], [place]. Taking methocarbamol 750 mg 3 times [...] reviewed. Dictation completed with the use of [employer] voice recognition software, prone to medical misidentifications [...] for 11/20/2024. #Recent fall: Patient seen at [facility] ED 11/02/2024 s/p fall at work. [...] diffuse joint pain and fatigue. Follows with furniture cleaner Dr. Clark out of [place], records requested and not yet available for my review. 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 States this was diagnosed by Dr. Dubon out of [place], [place]. Taking methocarbamol 750 mg 3 times [...] Cassidy Quiroz as well as therapist regularly. #Rcok's: Patient reports PMH of Rock's. Denies history of levothyroxine use. TSH WNL at 0.6. All questions answered to the patient's satisfaction. Patient demonstrates understanding of diagnosis and treatments discussed. Follow-up in , sooner should any questions/concerns arise. Case discussed with collaborating physician Velia Morrison who has reviewed the assessment/plan. Chart, medications, labs, and vital signs reviewed. Dictation completed with the use of [employer] voice recognition software, prone to medical misidentifications [...] ER follow-up hospital follow-up. María presented to [facility] ED 04/19/2025 with chief complaint of suicidal [...] taking any pain medication. Previously followed with paint sprayer sandblaster Dr. Trivedi who provided steroid injections. Historically [...] with added opioid use. WIll refer to paint sprayer sandblaster with goal of establishing safe pain management regimen. #RA: Follows with Olaf Kaplan MD out of [place]. Discussed possibility of chronic pain being related [...] reviewed. Dictation completed with the use of [employer] voice recognition software, prone to medical misidentifications [...] for 11/20/2024. #Recent fall: Patient seen at [facility] ED 11/02/2024 s/p fall at work. [...] diffuse joint pain and fatigue. Follows with furniture cleaner Dr. Clark out of [place], records requested and not yet available for my review. 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 States this was diagnosed by Dr. Dubon out of [place], [place]. Taking methocarbamol 750 mg 3 times [...] reviewed. Dictation completed with the use of [employer] voice recognition software, prone to medical misidentifications [...] Previously following with Dr. Dubon out of [place], [place]. Underwent surgical correction RA: +RF - exentsive labs including ESR/CRP, bclb-eidxfc-yifopbef DNA, C3 and C for complement, anti-Bermeo antibodies, anti-B2 antibodies, anti-Lakisha antibodies, creatinine kinase, and anti-SSA/anti-SSB antibodies WNL. Follows with Eduardo out of [place], [place]. Continue meloxicam 15mg. Anxiety: Follows with psychatiric AERIAL TRAM OPERATOR Cassidy Quiroz. Continue lorazepam 1mg TID as [...] for 11/20/2024. #Recent fall: Patient seen at [facility] ED 11/02/2024 s/p fall at work. [...] diffuse joint pain and fatigue. Follows with furniture cleaner Dr. Clark out of [place], records requested and not yet available for my review. 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 States this was diagnosed by Dr. Dubon out of [place], [place]. Taking methocarbamol 750 mg 3 times [...] reviewed. Dictation completed with the use of [employer] voice recognition software, prone to medical misidentifications [...] 10/28/2024 MAGNESIUM 03/21/2025 TSH 03/21/2025 TSH 10/28/2024 TSH WITH REFLEX TO FT4 07/15/2025 URINALYSIS W/REFLEX CULTURE 03/21/2025 Culture MRSA Nasal [...] Tissue Head Neck 02/03/2025 Comp. Metabolic Panel [id number] Anti-Mi-2 Ab (RDL)-[id number] 12/13/2024 Anti-Ro (SS-A) Ab (RDL)-[id number] 5 Anti-La (SS-B) Ab (RDL)-[id number] 5 CREATINE KINASE AND CKMB 12/13/2024 CULTURE ANAEROBIC WITH GRAM STAIN 2024 Insurance Providers Payer Name Payer Address Payer Phone Subscriber Number Group Number Insured Name Patient Relationship to Insured Coverage Start Date Coverage End Date [facility] [address] [address] [place] [address] [id number] María Phillips Self - patient is [...]
--- OUTSIDE RECORDS SUMMARY | 2025-07-23 16:09 | XMS_ITS | Encounter Summary ---
Author Organization [facility] Address [address] [place] [address] [place] [phone] Phone Care Team Providers Care In House Counsel Name Role Phone Vee Allan MD Primary Care Pr ovider Encounter Details Date Type Department Care Team (Late st Contact Info) Description 10/08/2020 Ancillary Orders [facility] - Orthopaedics Outpatient Practice [address] [facility], [address], [address] [place] [address] Finn Bone MD [address] [place] [id number] [email or web address] Hand joint pain Social History Tobacco Use [...] hand documented in this encounter Care Teams In House Counsel Relationship Specialty Start Date End Date Vee Allan MD [address] [place] [id number] PCP - General Internal Medicine 09/01/20 documented as of this encounter Additional Source Comments The information contained in this document represents components of the legal health record. It is not the complete legal health record.[facility]
--- OUTSIDE RECORDS SUMMARY | 2025-07-23 16:09 | XMS_ITS | Encounter Summary ---
Author Organization [facility] Address [address] [place] [address] [place] [phone] Phone Care Team Providers Care Brand Executive Name Role Phone Vee Allan MD Primary Care Pr ovider Encounter Details Date Type Department Care Team (Late st Contact Info) Description 10/08/2020 Ancillary Orders [facility] - Orthopaedics Outpatient Practice [address] [facility], 1st Floor, [address] [place] [address] Finn Bone MD [address] [place] [id number] [email or web address] Hand joint pain Social History Tobacco [...] hand documented in this encounter Care Teams Brand Executive Relationship Specialty Start Date End Date Vee Allan MD [address] [place] [id number] PCP - General Internal Medicine 09/01/20 documented as of this encounter Additional Source Comments The information contained in this document represents components of the legal health record. It is not the complete legal health record.[facility]
--- OUTSIDE RECORDS SUMMARY | 2025-07-23 16:09 | XMS_ITS | Clinical Summary ---
Author Organization [facility] Address [address] [place] [id number] Phone Care Team Providers Care Working Supervisor Name Role Phone Vee Allan MD Primary [...] 2017 ZOSTER VACCINES (1 of 2) 2017 INFLUENZA VACCINE (#1) 2025 0, 08/23/2020 COVID-19 VACCINE (2 - 2024-2 6 season) 2025 03/03/2021 Adult Td,Tdap Booster 01/09/2029 01/09/2019 , 06/01/2015 [...] Medical Devices Not on file Care Teams Working Supervisor Relationship Specialty Start Date End Date Vee Allan MD [address] [place] [id number] PCP - General Internal Medicine 09/01/20 Additional Source Comments The information contained in this document represents components of the legal health record. It is not the complete legal health record.[facility]
--- OUTSIDE RECORDS SUMMARY | 2025-07-23 16:09 | XMS_ITS | Continuity of Care Document ---
Author Organization [facility] [address] [facility] [address] [place] [address] Phone [phone] Care Team Providers Care Bus Info Consultant Name Role Phone Vee Queen M.D Care Team Informa tijolanta Jacket Preparer [phone] Problems Active Problems Provider Date Anxiety Eric [...] Medications SIG Qnty Indications Ordering Provider Date [id number] Tablets 1 tabs by mouth at 11pm 1tabs Eric Shah M.D. 12/01/2022 [id number] Capsules Take 1 Capsule By Mouth 2 Times A Day Terence Olvera MD Bytwufhoysjfjdkawk1r g TBPK follow package directions Unknown Vital Signs Date Vital Result Comment 12/01/2022 11:00am BP Systolic 130 mmHg BP Diastolic 70 mmHg Heart Rate 72 /min Height 64 inches 5'4 Weight 185.00 lb BMI (Body Mass Index) 31.8 kg/m2 Results Test Acquired Date Facility Test Result H/L Range N ote Cortisol 01/20/2023 [facility] Refer ce Lab Cortisol 0.6 g/dL 1 Cortisol 01/06/2023 [facility] Refer ce Lab Cortisol <pending> Cortisol 01/05/2023 [facility] Referen ce Lab Cortisol 5.3 g/dL 2 Free T4 01/05/2023 [facility] Referen ce Lab Free T4 0.98 ng/dL (0.70-1.80) TSH [facility] 0.52 uIU/mL (0.4-4.2) Free T4 01/04/2023 [facility] Referen ce Lab Free T4 <pending> TSH 01/04/2023 [facility] ce Lab TSH <pending> 1 Reference [...]
--- OUTSIDE RECORDS SUMMARY | 2025-07-23 16:10 | XMS_ITS | Patient Health Record ---
Author Organization [facility] Address [address] [place] [address] Care Team Providers Care Radiology Scheduler Name Role Phone DUDLEYUlices LINDA Primary Care Provider [phone] SharifcarlosHugo brumfield Unavailable [phone] Allergies Allergen (clinical drug ingredient) Drug/Non Drug Allergy documented on EMR Reaction Allergy Type Onset Date Status azithromycin Azithromycin Unknown Drug Allergy A ctive clindamycin Clindamycin Unknown Drug Allergy Act aashish Results Component Value Reference Range Notes XR CERVICAL SPINE 4-5 VIEWS Reviewed date:11/21/2024 07:59:09 AM Interpretation: Performing Lab: Notes/Report: Note See Note [facility], a member of [employer] Patient Name: MARÍA OLSON Date of : 1965 Reason for Exam: OTHER Exam Date: 11/18/2024 [id number] EST Report Status: Final Ordering Provider: IKER [...] to the prior neck CTA. Telerad PA ([id number]) -------- FINAL REPOR T -------- Dictated By: Dayami Walker i Dictated Date: 11/19/2024 13:40 ET Assigned Physician: Dayami Diehl Reviewed and Electronically Signed By: Dayami Diehl Signed Date: 025 13:45 ET Workstation ID: [id number] Transcribed By: Self Edit Transcribed Date: 11/19/2024 13:40 ET CBC With Differential/Platel et-[id number] Reviewed date:07/30/2024 07:54:24 AM Interpretation: Performing Lab:[facility], [address] [place] [address], Phone - [phone], Director - Elsa Notes/Report: WBC 5.4 3.4-10.8 [...] Immature Grans (Abs) 0.0 0.0-0.1 x10E3/uL TSH+Free [id number] Reviewed date:07/30/2024 07:54:27 AM Interpretation: Performing Lab:[facility], [address] [place] [address], Phone - [phone], Director - Jennifery Notes/Report: TSH 0.365 0.450-4.500 uIU/mL T4,Free(Direct) 1.20 0.82-1.77 ng/dL Lipid Panel-[id number] Reviewed date:07/30/2024 03:17:56 PM Interpretation: Performing Lab:[facility], [address] [place] [address], Phone - [phone], Director - dry Notes/Report: Cholesterol, Total 266 100-199 mg/dL Triglycerides 102 0-149 mg/dL HDL Cholesterol 82 >39 mg/dL VLDL Cholesterol Corby 17 5-40 mg/dL LDL Chol Calc ([facility]) 167 0-99 mg/dL Comp. Metabolic Panel (14)-3 Reviewed date:07/30/2024 07:54:38 AM Interpretation: Performing Lab:[facility], [address] [place] [address], Phone - [phone], Director - Jennifery Notes/Report: Glucose 92 70-99 [...] IU/L ALT (SGPT) 23 0-32 IU/L Lipid Panel-[id number] Reviewed date:09/09/2024 12:30:11 PM Interpretation: Performing Lab:[facility], [address] [place] [address], Phone - [phone], Director - Elsa Notes/Report: Cholesterol, Total 269 100-199 mg/dL Triglycerides 73 0-149 mg/dL HDL Cholesterol 96 >39 mg/dL VLDL Cholesterol Corby 12 5-40 mg/dL LDL Chol Calc ([facility]) 161 0-99 mg/dL Reason For Referral Reason Evaluation and manag ement - Dr New Diagnosis 1 Sprain of ribs, init ial encounter (S23.41XA) Referral Organization [facility] Referring Provider First Name LINDA Referring [...] ribs, init ial encounter (S23.41XA) Referral Organization [facility] Referring Provider First Name LINDA Referring [...] ribs, init ial encounter (S23.41XA) Referral Organization [facility] Referring Provider First Name LINDA Referring Provider Last Name [facility] Referring Provider Speciality Internal edicine Referred Provider Specialty Pulmonology General Notes Referral sent to [facility] - Office will call patient for scheduling.Bk Latraya 08/27/2024 04:11:52 PM > Referral Priority Routine Reason Please evaluate and treat Diagnosis 1 Spondylolisthesis, l umbar region (M43.16) Referral Organization [facility] Referring Provider First Name Hugo Referring Provider Last Name Sherlyn Referred Provider Specialty Orthopedic S urgery General Notes Referral faxed to Dr Clive Ross per patient's request at [phone]., Adelita Cerrato 10/03/2024 11:16:33 AM > Referral [...] W/U Status Risk Notes Problem Autoimmune thyroiditis (75551782) Autoimmune thyroiditis (E06.3) Active confirmed Problem Vitamin deficiency (94763137) Vitamin deficiency, unspecified (E56.9) Active confirmed Problem Mixed hyperlipidemia (048871450) Mixed hyperlipidemia (E78.2) Active confirmed Problem Tobacco user (240688475) Nicotine dependence, cigarettes, uncomplicated (F17.210) Active confirmed Problem Generalized anxiety disorder (46002773) Generalized anxiety disorder (F41.1) Active confirmed Problem Chronic sinusitis (70936475) Chronic sinusitis, unspecified (J32.9) Active confirmed Problem Rheumatoid arthritis (75036696) Other rheumatoid arthritis with rheumatoid factor of unspecified site (M05.80) Active confirmed Problem Acquired spondylolisthesis (963198358) Spondylolisthesis , lumbar region (M43.16) Active confirmed Problem Solitary sacroiliitis (784272261) Sacroiliitis, not elsewhere classified (M46.1) Active confirmed Problem Solitary pulmonary nodule (032444972) Solitary pulmonary nodule (R91.1) Active confirmed Vital Signs Heart Rate 75 /min 09/24/2024 Temperature 97.4 degrees Fahrenheit 09/24/2024 Oximetry 98 % 09/24/2024 Blood pressure diastolic 76 mm Hg 09/24/2024 Height 5'4 in 09/24/2024 Blood pressure systolic 130 mm Hg 09/24/2024 Weight 164 lbs 09/24/2024 BMI 28.15 kg/m2 09/24/2024 Encounters Encounter Location Date Provider Diagnosis [address] [place] [address] 07/29/2024 LINDA KHAN Other rheumatoid arthritis with rheumatoid factor of unspecified site M05.80 ; Latent tuberculosis Z22.7 ; Personal history of COVID-19 Z86.16 ; Generalized anxiety disorder F41.1 ; Nicotine dependence, cigarettes, uncomplicated F17.210 ; Tobacco abuse counseling Z71.6 ; Solitary pulmonary nodule R91.1 ; Autoimmune thyroiditis E06.3 and Acute sinusitis, unspecified J01.[address] [place] [address] 08/16/2024 Ghadeer Mazloum Bilateral temporomandibular joint disorder, unspecified M26.603 ; Chronic sinusitis, unspecified J32.9 and Mixed hyperlipidemia E78.[address] [place] [address] 08/21/2024 LINDA KHAN Sprain of ribs, init ial encounter S23.41XA [address] [place] [address] 09/24/2024 Ghadeer Mazloum Intercostal pain R07 .82 and Sacroiliitis, not elsewhere classified M46.1 [facility] [address] [place] [address] 07/29/2024 [facility] [address] [place] [address] 07/30/2024 [facility] Mixed hyperlipidemia E78.2 [facility] [address] [place] [address] 08/07/2024 [facility] [address] [place] [address] 08/19/2024 [facility] [address] [place] [address] 08/20/2024 [facility] [address] [place] [address] 08/21/2024 MCKEON GUL Sprain of ribs, init ial encounter S23.41[facility] [address] [place] [address] 08/28/2024 [facility] [address] [place] [address] 09/02/2024 [facility] [address] [place] [address] 09/04/2024 MC[facility] GUL Left upper quadrant pain R10.12 and Sprain of ribs, initial encounter S23.41[facility] [address] [place] [address] 09/16/2024 MCKEON GUL Left upper quadrant pain R10.12 [facility] [address] [place] [address] 10/31/[address] [place] [address] 07/31/2024 MC[facility]ON GUL Weakness R53.1 and L eft upper quadrant pain R10.12 [facility] [address] [place] [address] 08/14/2024 [facility] [address] [place] [address] 08/20/2024 [facility] [address] [place] [address] 08/20/2024 [facility] [address] [place] [address] 08/20/2024 [facility] [address] [place] [address] 08/22/2024 [facility] [address] [place] [address] 08/22/2024 [facility] [address] [place] [address] 08/22/2024 [facility] [address] [place] [address] 08/22/2024 [facility] [address] [place] [address] 08/22/2024 [facility] [address] [place] [address] 08/23/2024 [facility] [address] [place] [address] 08/23/2024 [facility] [address] [place] [address] 08/23/2024 [facility] [address] [place] [address] 08/23/2024 [facility] [address] [facility] [place] [address] 08/23/2024 MCKEON GUL [facility] [address] [facility] [place] [address] 08/26/2024 MC[facility] GUL [facility] [address] [facility] [place] [address] 08/26/2024 [facility] G[facility] [address] [facility] [place] [address] 08/27/2024 MCKEON GUL [facility] [address] [facility] [place] [address] 08/27/[address] [facility] [address] [facility] [place] [address] 08/27/[address] [facility] [address] [facility] [place] [address] 08/27/2024 [facility] [address] [facility] [place] [address] 08/28/2024 [facility] GUL [facility] [address] [facility] [place] [address] 08/28/[address] [facility] [address] [facility] [place] [address] 08/28/2024 [facility] [address] [facility] [place] [address] 08/28/2024 [facility] GUL [facility] [address] [facility] [place] [address] 08/28/2024 [facility] [address] [facility] [place] [address] 08/28/2024 [facility] GUL [facility] [address] [facility] [place] [address] 08/28/2024 [facility] [address] [place] [address] 08/28/2024 [facility] [address] [place] [address] 08/28/2024 [facility] [address] [place] [address] 08/28/2024 [facility] [address] [place] [address] 08/28/2024 [facility] [address] [place] [address] 08/30/2024 [facility] [address] [place] [address] 09/02/2024 [facility] Left upper quadrant pain R10.12 [facility] [address] [place] [address] 09/03/2024 [facility] [address] [place] [address] 09/04/2024 [facility] Vitamin deficiency, unspecified E56.9 [facility] [address] [place] [address] 09/04/2024 [facility] Encounter for screen ing mammogram for malignant neoplasm of breast Z12.31 [facility] [address] [place] [address] 09/05/2024 [facility] [address] [place] [address] 09/06/2024 [facility] [address] [place] [address] 09/09/2024 [facility] [address] [place] [address] 09/11/2024 [facility] [address] [place] [address] 09/17/[address] [facility] [address] [place] [address] 09/17/2024 [facility] [address] [place] [address] 09/17/2024 [facility] [address] [place] [address] 09/18/2024 [facility] [address] [place] [address] 09/19/2024 [facility] [address] [facility] [place] [address] 09/19/2024 [facility] [address] [facility] [place] [address] 09/25/2024 [facility] [address] [facility] [place] [address] 09/26/2024 Ghadeer Mazloum [facility] [address] [facility] [place] [address] 09/30/2024 [facility] [address] [facility] [place] [address] 10/01/2024 [facility] [address] [place] [address] 10/01/2024 [facility] [address] [facility] [place] [address] 10/07/2024 [facility] [address] [facility] [place] [address] 10/07/2024 [facility] [address] [place] [address] 10/10/2024 [facility] [address] [facility] [place] [address] 10/21/2024 Ghadeer Mazloum Rib pain on right si de R07.81 [facility] [address] [place] [address] 10/24/2024 Hugo Plata Assessments Encounter Date Diagnosis (ICD Code) Assessment Notes Treatment Notes Treatment Clinical Notes Section Notes 07/29/2024 Other rheumatoid arthritis with rheumatoid factor of unspecified site (ICD-10 - M05.80) María is a 59-year-old lady with rheumatoid arthritis, generalized anxiety disorder here to establish care. Plan is as follows: Rheumatoid arthritis. She sees Dr. Bang at [facility]. 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 Generalized anxiety disorder. Mood is stable [...] is asymptomatic Eye screening. She sees her web search evaluator Dr. Leonardo regularly. Dental screening. She sees dentist regularly. Breast cancer screening. She is up-to-date on her mammogram. Female screening. She follows up with her architectural technologist for breast and pelvic exams. Colon cancer screening. She had her colonoscopy done in 2022 and is on [id number]-[id number]. Immunizations. She is up-to-date on her COVID [...] Rheumatoid arthritis. She sees Dr. Bang at [facility]. 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 Generalized anxiety disorder. Mood is stable [...] is asymptomatic Eye screening. She sees her web search evaluator Dr. Leonardo regularly. Dental screening. She sees dentist regularly. Breast cancer screening. She is up-to-date on her mammogram. Female screening. She follows up with her architectural technologist for breast and pelvic exams. Colon cancer screening. She had her colonoscopy done in 2022 and is on 81-[id number]-lhrcm. Immunizations. She is up-to-date on her COVID [...] Rheumatoid arthritis. She sees Dr. Bang at [facility]. 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 Generalized anxiety disorder. Mood is stable [...] is asymptomatic Eye screening. She sees her web search evaluator Dr. Leonardo regularly. Dental screening. She sees dentist regularly. Breast cancer screening. She is up-to-date on her mammogram. Female screening. She follows up with her architectural technologist for breast and pelvic exams. Colon cancer screening. She had her colonoscopy done in 2022 and is on 10-ukas-ekyit. Immunizations. She is up-to-date on her COVID [...] Rheumatoid arthritis. She sees Dr. Bang at [facility]. 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 Generalized anxiety disorder. Mood is stable [...] is asymptomatic Eye screening. She sees her web search evaluator Dr. Leonardo regularly. Dental screening. She sees dentist regularly. Breast cancer screening. She is up-to-date on her mammogram. Female screening. She follows up with her architectural technologist for breast and pelvic exams. Colon cancer screening. She had her colonoscopy done in 2022 and is on [id number]-adosy. Immunizations. She is up-to-date on her COVID [...] Rheumatoid arthritis. She sees Dr. Bang at [facility]. 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 Generalized anxiety disorder. Mood is stable [...] is asymptomatic Eye screening. She sees her web search evaluator Dr. Leonardo regularly. Dental screening. She sees dentist regularly. Breast cancer screening. She is up-to-date on her mammogram. Female screening. She follows up with her architectural technologist for breast and pelvic exams. Colon cancer screening. She had her colonoscopy done in 2022 and is on [id number]. Immunizations. She is up-to-date on her COVID [...] Rheumatoid arthritis. She sees Dr. Bang at [facility]. 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 Generalized anxiety disorder. Mood is stable [...] is asymptomatic Eye screening. She sees her web search evaluator Dr. Leonardo regularly. Dental screening. She sees dentist regularly. Breast cancer screening. She is up-to-date on her mammogram. Female screening. She follows up with her architectural technologist for breast and pelvic exams. Colon cancer screening. She had her colonoscopy done in 2022 and is on [id number]-[id number]. Immunizations. She is up-to-date on her COVID [...] Rheumatoid arthritis. She sees Dr. Bang at [facility]. 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 Generalized anxiety disorder. Mood is stable [...] is asymptomatic Eye screening. She sees her web search evaluator Dr. Leonardo regularly. Dental screening. She sees dentist regularly. Breast cancer screening. She is up-to-date on her mammogram. Female screening. She follows up with her architectural technologist for breast and pelvic exams. Colon cancer screening. She had her colonoscopy done in 2022 and is on 01-tnjf-mpske. Immunizations. She is up-to-date on her COVID [...] Rheumatoid arthritis. She sees Dr. Bang at [facility]. 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 Generalized anxiety disorder. Mood is stable [...] is asymptomatic Eye screening. She sees her web search evaluator Dr. Leonardo regularly. Dental screening. She sees dentist regularly. Breast cancer screening. She is up-to-date on her mammogram. Female screening. She follows up with her architectural technologist for breast and pelvic exams. Colon cancer screening. She had her colonoscopy done in 2022 and is on [id number]-[id number]. Immunizations. She is up-to-date on her COVID [...] Rheumatoid arthritis. She sees Dr. Bang at [facility]. 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 Generalized anxiety disorder. Mood is stable [...] is asymptomatic Eye screening. She sees her web search evaluator Dr. Leonardo regularly. Dental screening. She sees dentist regularly. Breast cancer screening. She is up-to-date on her mammogram. Female screening. She follows up with her architectural technologist for breast and pelvic exams. Colon cancer screening. She had her colonoscopy done in 2022 and is on [id number]-pcbze. Immunizations. She is up-to-date on her COVID [...] Insured Coverage Start Date Coverage End Date [facility] [employer] [facility] [address] [address] [place] [address] [id number] MARÍA OLSON Self - patient is the insured 0 Medical (General) History Medical History History ICD Code TB treated by ID in [facility] RA treated by DR Bang at [facility] eye disease and see Dr Leonardo generalized anxiety disorder skin sensitivity Surgical History Surgery Date(Month/Year) carpal tunnel strabismus repair Gallbladder removed hernia repair
== END 2025-07-23 13:38 | disposition home or self-care (01) ==
LOC: HO.HNS 12:43
PROVIDERS: Visit Provider Neurological Surgery
DX: M79.18 Myalgia, other site (principal)
CPT/HCPCS: 99204

== ENCOUNTER 2025-08-12 14:32 | Outpatient (AMB) | payer OTHER, SELFPAY ==
--- OUTSIDE RECORDS SUMMARY | 2024-08-06 08:23 | XMS_ITS | Encounter Summary ---
Author Organization [facility] Address [address] [place] [address] Care Team Providers Care Director Dental Services Name Role Phone Unavailable Primary Care Provider Unavailabl e Encounter Details Date Type Department Care Team (Late st Contact Info) Description 08/06/2024 8:23 AM EDT Hospital Encounter TH HISTORIC ENCOUNTERS EASTERN CONVERSION ONLY Tutu Trivedi MD [address] [place] [address] Social History Tobacco Use Types Packs/Day Years [...] 4:01 PM EDT Karin Vera RN * [place] Suicide Severity Rating Scale (Screener/Recent Self-Report) Question [...] Care Team (Late st Contact Info) Description 08/14/2025 3:30 PM EDT Office Visit Orthopedic Surgery [facility] [address] [facility] [address] [place] [phone] Von Mcclure MD 175 [facility] [address] [place] [address] 09/23/2025 3:45 PM EST Office Visit Orthopedic Surgery [facility] 175 [facility] [address] [place] [phone] Bessy Mesa MD [address] [place] [phone] documented as of this encounter Visit Diagnoses [...]
--- OUTSIDE RECORDS SUMMARY | 2025-02-14 07:00 | XMS_ITS ---
Author Organization [facility] Address [address] [place] [address] Care Team Providers Care Chain Mender Name Role Phone IKER ROBLERO PA-C Primary Care Provider Unav Latonya Panda Unavailable [phone] REASON FOR VISIT ULTRA - CK OVARIES ? DERMOID ON RT ADNEXA ON X RAY Encounters Encounter Location Date Provider Diagnosis [facility] [employer] [address] 02/14/2025 Latonya Lozano Plan Of Treatment No Information Progress Notes * DAWSON OLSONMOONOB:1965 (60 yo F)Acc No.[id number]:02/14/2025 PROGRESS NOTES Patient: MARCUS RODRIGUEZ Appointment Provider: Shannon Lozano M.D. :1965 A ge:59 Y S ex:Female Date:02/14/2025 Address:[address] [place], [place] [phone] Pcp:IKER ROBLERO PA-C Subjective: * Chief Complaints: * 1 . ULTRA - CK OVARIES ? DERMOID ON RT ADNEXA ON X RAY. * Medical History: Objective: * Vitals: Assessment: Plan: * Treatment: * Images: Billing Information: * Visit Code: * Procedure Codes: * Electronic signature of Pato Lozano MD on 08/12/2025 at 05:51 PM EDT Sign off status: Pending * Appointment Provider: Shannon Lozano M.D. Date: 0 02/14/2025 Generated for Renay bear/Hilton/eTransmitting on: 1 05:51 PM EDT
--- OUTSIDE RECORDS SUMMARY | 2025-03-03 09:10 | XMS_ITS ---
Author Organization [facility] Address [address] [place] [address] Care Team Providers Care Rock Climbing Team Member Name Role Phone IKER ROBLERO PA-C Primary Care Provider Latonya Ramirez Unavailable [phone] Allergies Allergen (clinical drug ingredient) Drug/Non Drug [...] Active Encounters Encounter Location Date Provider Diagnosis [address] [address] 03/03/2025 Latonya Lozano Plan Of Treatment No Information Progress Notes * MIS OLSONOB:1965 (60 yo F)Acc No.[id number]:03/03/2025 Patient: Bhavna DIORMARCUS Appointment Provider: Shannon Lozano M.D. :1965 A ge:59 Y S ex:Female Date:03/03/2025 Address:[address] [place] [address] Pcp:IKER ROBLERO PA-C Subjective: * Chief Complaints: [...] on cytologic smear of cervix (ASC-US). * Roller Printing Supervisor History: G ravida/ Para 2 /2. S exual activity n ot currently sexually active. L ast Pap Smear: ASCUS, POS HRHPV (Neg 16, 18/45), 03/28/22 LGSIL, POS HRHPV (neg 16, 18/45), 11/21/17 NEG HRHPV, 2011. M ammogram: < 50% density, 02/27/19 < 50% density, 07/26/2017 normal, 07/2016 with follow up Lt Diagnostic 07/09/2016 Bx recommended. A bnormal Pap Smear: [place] Negative, 06/06/22 [place] Negative, 03/2022 LGSIL, + HRHPV. L MP [...] 03/03/2025 Generated for Renay bear/Hilton/Sh[place]ille on: 1 05:51 PM EDT
--- OUTSIDE RECORDS SUMMARY | 2025-03-06 06:00 | XMS_ITS ---
Author Organization [facility] Address [address] [facility] [address] [place] [address] Care Team Providers Care Camp Cook Name Role Phone IKER ROBLERO PA-C Primary Care Provider Latonya Ramirez Unavailable [phone] Allergies Allergen (clinical drug ingredient) Drug/Non Drug [...] 100 MG TAKE 1 CAPSULE BY [facility] 3 TIMES A DAY Oral; Duration: 30 [...] 6-10 Encounters Encounter Location Date Provider Diagnosis [address] [place] [address] 03/06/2025 Latonya Lozano Plan Of Treatment No Information Progress Notes * DAWSON OLSONENDOB:1965 (60 yo F)Acc No.[id number]:03/06/2025 Patient: MARCUS RODRIGUEZ Appointment Provider: Shannon Lozano M.D. :1965 A ge:59 Y S ex:Female Date:03/06/2025 Address:[address] [place], [place] [phone] Pcp:IKRE ROBLERO PA-C Subjective: * Chief Complaints: * [...] on cytologic smear of cervix (ASC-US). 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 S exual activity n ot currently sexually active. L ast Pap Smear: ASCUS, POS HRHPV (Neg 16, 18/45), 03/28/22 LGSIL, POS HRHPV (neg 16, 18/45), 11/21/17 NEG HRHPV, 2011. M ammogram: Breast Tissue is Almost Entirely Fatty, , 02/27/19 < 50% density, 07/26/2017 normal, 07/2016 with follow up Lt Diagnostic 07/09/2016 Bx recommended. A bnormal Pap Smear: [place] Negative, 06/06/22 [place] Negative, 03/2022 LGSIL, + HRHPV. L MP [...] of Pato Lozano MD on 08/12/2025 at 05:52 PM EDT Sign off status: Pending * Appointment Provider: Shannon Lozano M.D. Date: 0 03/06/2025 Generated for Renay bear/Hilton/Lambertoitting on: 1 05:52 PM EDT
--- NOTE | 2025-08-12 14:41 | MHC.OFFVIS ---
Vital Signs 08/12/25 14:42 Height 5 ft 4 in Weight 165 lb 5.547 oz BMI 28.4 BP 100/80 Blood Pressure Location Rt brachial Position Sitting Pulse 75 Pulse Source Pulse Oximeter Pulse Oximetry (%) 99 Oxygen Delivery Method Room Air Intake Visit Reasons: RA/urgent appt req Intake Note: Patients presents for an RA follow up and pain in bilateral knees. Accompanied by: Self / Same As Patient Allergies erythromycin base Allergy (Verified 08/12/25 14:44) Hives etanercept (From Enbrel) Adverse Reaction (Intermediate, Verified 08/12/25 14:44) diverticulitis leflunomide Adverse Reaction (Intermediate, Verified 08/12/25 14:44) diverticulitis prednisone Adverse Reaction (Intermediate, Verified 08/12/25 14:44) Body pain gabapentin Adverse Reaction (Mild, Verified 08/12/25 14:44) tremors Medication List - Last Reconciled 08/12/25 by Joshua Castellanos MD abatacept (Orencia ClickJect) 125 mg subcut QWEEK ascorbic acid (vitamin C) 1 g PO DAILY bismuth subsalicylate 2 tabs PO QID celecoxib 200 mg PO BID cholecalciferol (vitamin D3) 25 mcg PO DAILY clonazepam 0.5 mg PO BID PRN gabapentin 300 mg PO TID leg brace (Knee Support Brace) As directed left knee hinge brace Dx: osteoarthritis lorazepam 0.5 mg PO TID PRN lorazepam (Ativan) 0.5 mg PO TID PRN methocarbamol 750 mg PO TID metronidazole 250 mg PO QID nystatin 1 mL PO DAILY omeprazole 40 mg PO BID sertraline 50 mg PO DAILY HPI HPI RA/urgent appt req: Details: She has had increased knee pain over the last couple of weeks. She started Wellbutrin and dose was increased 3 weeks ago. After dose increase she had hives and worsening dermatographia in her extremities dermatographia. She also felt that her throat was scratchy for few weeks. She discontinued Wellbutrin in skin issues have improved. She continues to have dermatographia and knee pain. After wrists surgery a month ago, she started walking. She resumes work this Monday. She took a medication prescribed from her previous rheumatologists with benefit last night. Failed nabumetone. She has history of left knee ACL tear. She will be seeing orthopedic surgeon next week. She had hyaluronic acid injections in April without benefit. She has had lumbar puncture for neurological workup, which revealed elevated red blood cells and markers for multiple sclerosis. She will be seeing a specialist at [facility]. She continues to do PT for strengthening of lower back, pelvic floor and SI joint. [facility] Medical History (Updated 08/12/25 @ 15:39 by Joshua Castellanos MD) Dermatographia Helicobacter pylori (H. 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 Sacroiliac joint pain Tendonitis of ankle, right Surgical History (Updated 08/12/25 @ 14:46 by Yenifer Daniel CMA) H/O decompression of ulnar nerve History of surgery Social History Household Members: Spouse and Family Housing: House Alcohol intake: current Alcohol intake frequency: a few times a month Patient Tobacco Use Status: Current everyday Tobacco user Tobacco use type: Cigarette Cigarettes Per Day: 10 Years Smoked: 15 years e-Cigarette/Vaping Use: Never Used service: No Current occupational status: employed 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 Physical Exam Vital Signs: Last Vital Signs Pulse 75 08/12/25 14:42 BP 100/80 08/12/25 14:42 Pulse Ox 99 08/12/25 14:42 Oxygen Delivery Method Room Air 08/12/25 14:42 BMI result Body Mass Index 28.4 Const Other: General: Comfortable Skin: Dermatographia seen on legs MSK: Tender to palpate left medial joint line. No effusion. Negative Pippa's and Thessaly testing. Assessment & Plan Assessment & Plan (1) Bilateral knee pain: Comment: Left knee pain worse than right knee with preserved range of motion. Exacerbated after Wellbutrin dose was increased. Wellbutrin can cause arthralgias in 4-5% and arthritis in rare cases. She has background osteoarthritis with left ACL tear. Discussed conservative management. She has failed multiple NSAIDs including meloxicam, Celebrex, nabumetone and diclofenac. Failed Tylenol. Code(s): M25.561 - Pain in right knee; M25.562 - Pain in left knee Category: Medical Plan: Left knee hinged brace prescribed I asked her to discuss knee strengthening program with her physical therapist She will be following up with orthopedic surgeon next week She will call office with the name of medication she took yesterday, which helped alleviate her knee pain Return to clinic August 27 for RA management Medications: New leg brace (Knee Support Brace) As directed left knee hinge brace Dx: osteoarthritis 1 ea 0RF Discontinued abatacept (Orencia ClickJect) Labs due 4 weeks after starting Orencia. First dose administration in office. Patient needs to schedule nurse teaching visit. Discontinued Reason: Doctor's Order 125 mg subcut QWEEK 4 mL 0RF nabumetone Replace previous prescription. Discontinued Reason: Doctor's Order 750 mg PO BID 60 tabs 2RF Coding Level of Care Code Est Pt Level 4 (82305) Complex EM visit Add On G2211 Diagnoses Bilateral knee pain M25.561; M25.562 Time Spent (min) 20
[2025-08-12 14:42] VITALS: BP 100/80; PULSE 75; O2SAT 99; BMI 28.4
--- OUTSIDE RECORDS SUMMARY | 2025-08-12 15:45 | XMS_ITS | Encounter Summary ---
Author Organization [facility] Address [address] [place] [address] Care Team Providers Care Associate Financial Planner Name Role Phone Araceli Augustin Primary Care Provider + Reason for Referral * Consultation (Routine) - Pending Review Specialty Diagnoses / Procedures Referred By Corine strange Referred To Contact Occupational Therapy Diagnoses Osteochondrosis of lunate of left wrist Surgery follow-up Bessy Mesa MD [address] [place] [address] Phone: tel: fax: Referral ID Status Reason Start Date Expiration Date Visits Requested Visits Authorized [id number] Pending Review Specialty Services Required 08/12/2025 08/12/2026 6 6 Reason for Visit * Reason Comments Post-op Surgery follow up fo r core decompression of distal radius on 07/16/25 Encounter Details Date Type Department Care Team (Late st Contact Info) Description 08/12/2025 3:45 PM EDT Office Visit Orthopedic Surgery - [place] [address] [facility] [address] [place] [phone] Bessy Mesa MD [address] [place] [phone] Wrist pain (Primary Dx); Osteochondrosis of lunate of left wrist; Surgery follow-up Social History Tobacco Use [...] 3:45 PM EDT Orthopedic/Hand Surgery Follow-up Visit 08/12/25 REASON FOR VISIT: Patient here today for follow-up of core decompression of the right distal radius date of surgery was 08/14/2025. Patient is doing okay. She still has [...] wrist to 30 flex to 45 XR Wrist 3+ Views Right AP, lateral, oblique of the right wrist was obtained on 08/12/2025. There is notable osteopenic bone. Carpal alignment on the lateral is maintained. There is collapse and sclerosis of the lunate. There is associated flexion of the scaphoid. There are no obvious fractures. Soft tissue envelope appears within normal limits. Impression: Advanced avascular necrosis of the lunate ASSESSMENT/PLAN: Encounter Diagnoses Name Primary? Wrist pain Yes Osteochondrosis of lunate of left wrist Surgery follow-up Patient will continue work [...] 3:30 PM EDT Office Visit Orthopedic Surgery [facility] [address] [facility] [address] [place] [phone] Von Mcclure MD [address] [facility] [address] [place] [address] 09/23/2025 3:45 PM EST Office Visit Orthopedic Surgery [facility] [address] [facility] [address] [place] [phone] Bessy Mesa MD [address] [place] [phone] Scheduled Referrals Name Type Priority Associated Diagnoses Order Schedule Ambulatory referral to Occupational Therapy Outpatient Referral Routine Osteochondrosis of lunate of left wrist Surgery follow-up 1 Occurrences starting 08/12/2025 until 08/12/2026 documented as of this encounter Results * [...] in joint, forearm Osteochondrosis of lunate of left wrist Surgery follow-up documented in this encounter Care Teams Associate Financial Planner Relationship Specialty Start Date End Date Araceli Augustin PA [address] [facility] [address] [place] [phone] PCP - General 11/20/24 documented as of this encounter
--- OUTSIDE RECORDS SUMMARY | 2025-08-12 17:51 | XMS_ITS | Clinical Summary ---
Author Organization [facility] Address [address] [place] [phone] Phone Care Team Providers Care Solar Installer Pv Name Role Phone Vee Allan MD Primary [...] Adult Td,Tdap Booster 01/09/2029 01/09/2019 , 06/01/2015 RSV VACCINE (1 - 1-dose 75+ series) 2042 HEPATITIS A VACCINES Aged Out No long [...] Medical Devices Not on file Care Teams Solar Installer Pv Relationship Specialty Start Date End Date Vee Allan MD [address] [place] [phone] PCP - General Internal Medicine 09/01/20 Additional Source Comments The information contained in this document represents components of the legal health record. It is not the complete legal health record.[facility]
--- OUTSIDE RECORDS SUMMARY | 2025-08-12 17:52 | XMS_ITS | Clinical Summary ---
Author Organization [facility] Address [address] [place] [address] Care Team Providers Care Spring Clipper Name Role Phone Vee Allan MD Primary [...] age to complete this topic Care Teams Spring Clipper Relationship Specialty Start Date End Date Vee Allan MD PCP - General Internal Medicine 12/05/19
--- OUTSIDE RECORDS SUMMARY | 2025-08-12 17:52 | XMS_ITS | Continuity of Care Document ---
Author Organization [facility] [address] [facility] [address] [place] [address] Phone [phone] Care Team Providers Care Spot Man Name Role Phone Vee Queen M.D Care Team [employer] t[employer]olanta Employee Communications Manager [phone] Problems Active Problems Provider Date Anxiety Eric [...] Medications SIG Qnty Indications Ordering Provider Date [id number] Tablets 1 tabs by mouth at 11pm 1tabs Eric Shah M.D. 12/01/2022 [id number] Capsules Take 1 Capsule By Mouth 2 Times A Day Terence Olvera MD Dtejivlhhifhravxun1c g TBPK follow package directions Unknown Vital Signs Date Vital Result Comment 12/01/2022 11:00am BP Systolic 130 mmHg BP Diastolic 70 mmHg Heart Rate 72 /min Height 64 inches 5'4 Weight 185.00 lb BMI (Body Mass Index) 31.8 kg/m2 Results Test Acquired Date Facility Test Result H/L Range N ote Cortisol 01/20/2023 [facility] Refer ce Lab Cortisol 0.6 g/dL 1 Cortisol 01/06/2023 [facility] Refer ce Lab Cortisol <pending> Cortisol 01/05/2023 [facility] Referen ce Lab Cortisol 5.3 g/dL 2 Free T4 01/05/2023 [facility] Referen [facility] Lab Free T4 0.98 ng/dL (0.70-1.80) T[facility] 0.52 uIU/mL (0.4-4.2) Free T4 01/04/2023 [facility] Referen ce Lab Free T4 <pending> TSH 01/04/2023 [facility] ce Lab TSH <pending> 1 Reference [...]
--- OUTSIDE RECORDS SUMMARY | 2025-08-12 17:52 | XMS_ITS | Encounter Summary ---
Author Organization [facility] Address [address] [place] [address] [place] [phone] Phone Care Team Providers Care Concreting Supervisor Name Role Phone Vee Allan MD Primary Care Pr ovider Encounter Details Date Type Department Care Team (Late st Contact Info) Description 10/08/2020 Ancillary Orders [facility] - Orthopaedics Outpatient Practice [address] [facility] 1[address], [address] [place] [address] Finn Bone MD [address] [place] [phone] [email or web address] Hand joint pain Social History Tobacco [...] hand documented in this encounter Care Teams Concreting Supervisor Relationship Specialty Start Date End Date Vee Allan MD [address] [place] [phone] PCP - General Internal Medicine 09/01/20 documented as of this encounter Additional Source Comments The information contained in this document represents components of the legal health record. It is not the complete legal health record.[facility]
--- OUTSIDE RECORDS SUMMARY | 2025-08-12 17:52 | XMS_ITS | Patient Health Record ---
Author Organization [facility] Address [address] [place] [address] Care Team Providers Care Credit Report Checker Name Role Phone IKER ROBLERO Unavailable [phone] CHINO YBARRA Unavailable [phone] NormoylFaby cuevasin Unavailable [phone] Allergies Allergen (clinical drug ingredient) Drug/Non Drug Allergy documented on EMR Reaction Allergy Type Onset Date Status Macrolides and Ketolides hives Drug Allergy Active Results Component Value Reference Range Notes COMPREHENSIVE METABOLIC PANE L Reviewed date:05/05/2025 05:25:25 [...] 3.2-5.0 g/dL Total Bilirubin 0.4 0.0-1.4 mg/dL HEMOGLOBIN A1C Reviewed date:05/06/2025 03:59:06 PM Interpretation: Performing Lab: Notes/Report: Hemoglobin A1C 5.7 <6.5 % Mean Bld Glu Estim. 117 XR WRIST 3+ VIEWS RIGHT (Not yet reviewed by provider) Interpretation: Performing Lab: Notes/Report: Note See Note [facility], a member of [facility] Patient Name: MARÍA PHILLIPS Date of : 1965 Reason for Exam: right wrist pain Exam Date: 08/12/2025 [id number] EST Report Status: Final Ordering Provider: DUC MARQUIS PCP: IKER ROBLERO AP, lateral, oblique of the right wrist was obtained on 08/12/2025. There is notable osteopeni c bone. Carpal alignment on the lateral is maintained. There is collapse and sclerosis of the lunate. There is associated flexion o f the scaphoid. There are no obvious fractures. Soft tissue envelope appe ars within normal limits. Impression: Advanced avascular necrosis of the lunate THYROID STIMULATING IMMUNOGL OBULIN Reviewed date:07/29/2025 07:58:42 AM Interpretation: Performing Lab: Notes/Report: Thyroid Stimulating Immunoglobulin <0.10 <0.10 IU/L Thyroid stimulating immunoglobulins (TSI) concentrations greater than or equal to (>=) 0.55 IU/L have a clinical sensitivity of at least 98.6%, and a clinical specificity of at least 98.5%, for the differential diagnosis of Graves' Disease. TSI concentrations for patients with other thyroid or autoimmune diseases range from 0.11 to 0.39 IU/L. Test performed at [facility], [address] [place] [id number] Krystina Austin MD, PhD - Monomer Recovery Operator XR FLUORO UP TO 1 HOUR Reviewed date:03/11/2025 11:47:24 AM Interpretation: Performing Lab: Notes/Report: Note See Note [facility], a member of [facility] Patient Name: MARÍA PHILLIPS Date of : 1965 Reason for Exam: pain Exam Date: 03/11/2025 [id number] EST Report Status: Final Ordering Provider: DAVID [...] Signed Date: 025 11:03 ET Workstation ID: [id number] Transcribed By: Self Edit Transcribed Date: 03/11/2025 11:[address] SINUSES WO CONTRAST Reviewed date:01/24/2025 12:18:38 PM Interpretation: Performing Lab: Notes/Report: Note See Note [facility], a member of [employer] Patient Name: MARÍA PHILLIPS Date of : 1965 Reason for Exam: deviated septum,sinonasal polyp Exam Date: 01/24/2025 [id number] EST Report Status: Final Ordering Provider: EDMUND [...] Signed Date: 025 08:42 ET Workstation ID: [id number] Transcribed By: Self Edit Transcribed Date: 01/24/2025 08:15 ET CALPROTECTIN, STOOL Reviewed date:05/12/2025 05:08:37 PM Interpretation: Performing Lab: Notes/Report: Calprotectin, Fecal 16.5 <50 mcg/g <50 mcg/g Normal 50 - 120 mcg/g Borderline >120 mcg/g Abnormal Borderline results suggest repeat testing in 4 to 6 weeks. Test performed at [facility], [address] [place] [address] Krystnia Austin MD, PhD - Monomer Recovery Operator HELICOBACTER PYLORI ANTIGEN, STOOL Reviewed date:08/05/2025 03:02:36 PM Interpretation: Performing Lab: Notes/Report: Helicobacter Pylori Ag Not detected Not detected This test was performed at [facility] using a chemiluminescent immunoassay intended for [...] Food and Drug Administration. Test performed at [facility], [address], [place] [address] Krystina Austin MD, PhD - Monomer Recovery Operator GASTROINTESTINAL PATHOGENS Magdalena PATRICK STUDY Reviewed date:05/08/2025 03:43:25 PM Interpretation: Performing [...] CLOSTRIDIOIDES DIFFICILE, NO ADDITIONAL TESTING IS NECESSARY. CREATINE KINASE Reviewed date:03/24/2025 07:44:57 AM Interpretation: Performing Lab: Notes/Report: Total CK 87 22-269 unit/L TISSUE EXAM Reviewed date:06/08/2025 11:10:45 PM Interpretation: [...] 10% NB formalin fixed and paraffin embedded. URINALYSIS WITH REFLEX MICRO SCOPIC AND CULTURE Reviewed date:03/24/2025 07:44:34 AM Interpretation: Performing Lab: Notes/Report: Specific [place] Urine 1.010 1.003-1.030 pH, Urine 8.0 5.0-8.0 [...] K/mcL Immature Granulocytes Absolute 0.04 0.00-0.03 K/mcL CULTURE ANAEROBIC WITH GRAM STAIN Reviewed date:07/24/2025 09:25:59 AM Interpretation: Performing Lab: Notes/Report: Staphylococcus warneri Specimen Source: Swab Collected: Jul 16, 2025 13:40:00 SPARSE Organism: STAPHYLOCOCCUS WARNERI Beta-lactamase negative Antibiotics ABBEY Interpretation The organism value for this result has been updated. These results have been appended to the previously preliminary verified report. Edited result: Previously reported as Gram Positive Cocci on 07/20/2025 at 0832 EDT. Penicillin G IgG-mCnc S Streptococcus viridans group This is an appended report. These results have been appended to a previously preliminary verified report. SPARSE Oxacillin Susc Islt 0.25 S Gentamicin Islt ABBEY 0.5 S Susceptibility testing not routinely performed. If further therapeutic information is required, please consult an infectious disease specialist. Ciprofloxacin Islt ABBEY 0.5 S The organism value for this result has been updated. These results have been appended to the previously preliminary verified report. levoFLOXacin Islt ABBEY 0.12 S This is an edited result. Previous organism was Gram Positive Cocci on 07/20/2025 at 0832 EDT. Erythromycin Susc Islt 8 R Bacillus species,not anthracis Clindamycin Susc Islt 0.25 S SPARSE Vancomycin Susc Islt 1 S The organism value for this result has been updated. These results have been appended to the previously preliminary verified report. Tetracycline Islt ABBEY 1 S rifAMPin Susc Islt 0.5 S Gram Stain Result Refer to Aerobic cul ture for gram stain results. Culture, Anaerobic No Growth of Anaerobes. Culture, Anaerobic STAPHYLOCOCCUS WARNERI Culture, Anaerobic STREPTOCOCCUS VIRIDA NS GROUP Culture, Anaerobic BACILLUS SPECIES, NO T ANTHRACIS Report Susceptibility Report NM HEPATOBILIARY SYSTEM IMAG ING Reviewed date:05/15/2025 03:07:20 PM Interpretation: Performing Lab: Notes/Report: Note See Note [facility], a member of [employer] Patient Name: MARÍA PHILLIPS Date of : 1965 Reason for Exam: Abdominal pain, upper, recurrent, post cholecystectomy Exam Date: 05/15/2025 [id number] EST Report Status: Final Ordering Provider: ALEXEI [...] hepatobiliary scintigraphy status post cholecystectomy. Kalpana BOOTHE ([id number]) -------- FINAL REPOR T -------- Dictated By: Dayami Walker i Dictated Date: 05/15/2025 11:46 ET Assigned Physician: Dayami Diehl Reviewed and Electronically Signed By: Dayami Diehl Signed Date: 025 11:48 ET Workstation ID: [id number] Transcribed By: Self Edit Transcribed Date: 05/15/2025 11:46 ET XR HAND 3+ VIEWS RIGHT Reviewed date:05/15/2025 07:58:11 AM Interpretation: Performing Lab: Notes/Report: Note See Note [facility], a member of [facility] Patient Name: MARÍA PHILLIPS Date of : 1965 Reason for Exam: pain Exam Date: 05/14/2025 [id number] EST Report Status: Final Ordering Provider: JOSHUA KAPLAN PCP: IKER ROBLERO HISTORY: The patient [...] osteoarthritis of the first carpal-metacarpal articulation. Code 28932, 71723 -------- FINAL REPOR T -------- Dictated By: Mauro Wright Dictated Date: 05/15/2025 07:41 ET Assigned Physician: Mauro Wright Reviewed and Electronically Signed By: Mauro Wright Signed Date: 025 07:44 ET Workstation ID: [id number] Transcribed By: Self Edit Transcribed Date: 05/15/2025 07:41 ET XR KNEE 4+ VIEWS BILAT Reviewed date:01/27/2025 08:06:07 AM Interpretation: Performing Lab: Notes/Report: Note See Note [facility], a member of [employer] Patient Name: MARÍA PHILLIPS Date of : 1965 Reason for Exam: ilateral knee pain Exam Date: 01/22/2025 [id number] EST Report Status: Final Ordering Provider: CELIA [...] intercondylar notch. No seeming effusion. Neutral alignment. CAMILO IFA WITH TITER AND GIOVANNA SAMSON Reviewed date:11/01/2024 07:38:11 AM Interpretation: Performing Lab: Notes/Report: CAMILO Negative Negative CULTURE WOUND DEEP Reviewed date:07/21/2025 01:17:57 PM Interpretation: Performing Lab: Notes/Report: Culture, Wound No growth at 3 days Gram Stain Result No polymorphonuclear leukocytes, No epithelial cells, and No organisms noted C REACTIVE PROTEIN, HIGH SEN SITIVITY Reviewed [...] Lab: Notes/Report: Sed Rate 4 0-30 mm/hr XR WRIST 3+ VIEWS RIGHT Reviewed date:05/15/2025 07:58:21 AM Interpretation: Performing Lab: Notes/Report: Note See Note [facility], a member of [facility] Patient Name: MARÍA PHILLIPS Date of : 1965 Reason for Exam: rm Exam Date: 05/14/2025 [id number] EST Report Status: Final Ordering Provider: JOSHUA KAPLAN PCP: IKER ROBLERO Please see combined report with radiographs of the right hand. -------- FINAL REPOR T -------- Dictated By: Mauro Wright Dictated Date: 05/15/2025 07:41 ET Assigned Physician: Mauro Wright Reviewed and Electronically Signed By: Mauro Wright Signed Date: 025 07:41 ET Workstation ID: [id number] Transcribed By: Self Edit Transcribed Date: 05/15/2025 07:[address] CHEST WO CONTRAST Reviewed date:06/03/2025 12:20:20 PM Interpretation: Performing Lab: Notes/Report: Note See Note [facility], a member of [facility] Patient Name: MARÍA PHILLIPS Date of : 1965 Reason for Exam: PULMONARY NODULE Exam Date: 05/28/2025 [id number] EST Report Status: Final Ordering Provider: IKER ROBLERO PCP: IKER ROBLERO History: Pulmonary nodule follow-up. Comparison: 12/05/24 Technique: Helical volumetric imaging of the thorax was performed without IV contrast. DLP: 279.09 mGy/cm [employer]er Iterative reconstruc tion technique Findings: The trachea [...] 2. No developing thoracic lymphadenopathy. [place] ([id number]) -------- FINAL REPOR T -------- Dictated By: Dayami Walker i Dictated Date: 06/02/2025 09:00 ET Assigned Physician: Dayami Diehl Reviewed and Electronically Signed By: Dayami Diehl Signed Date: 025 09:13 ET Workstation ID: [id number] Transcribed By: Self Edit Transcribed Date: 06/02/2025 09:00 ET FERRITIN Reviewed date:10/28/2024 04:25:26 PM Interpretation: Performing Lab: Notes/Report: Ferritin 28 8-252 ng/mL FERRITIN Reviewed date:03/05/2025 07:31:08 PM Interpretation: Performing Lab: Notes/Report: Ferritin 58 8-252 ng/mL US HEAD NECK SOFT TISSUE Reviewed date:01/24/2025 01:16:29 PM Interpretation: Performing Lab: Notes/Report: Note See Note [facility], a member of [employer] Patient Name: MARÍA PHILLIPS Date of : 1965 Reason for Exam: cervicalgia Exam Date: 01/24/2025 [id number] EST Report Status: Final Ordering Provider: CHINO YBARRA PCP: IKER ROBLERO EXAMINATION: US , RI GHT NECK CLINICAL INFORMATION: Pain. Symptoms for 6 [...] Signed Date: 025 08:00 ET Workstation ID: [id number] Transcribed By: Self Edit Transcribed Date: 01/24/2025 07:55 ET FOLATE Reviewed date:03/05/2025 07:31:03 PM Interpretation: [...] Lab: Notes/Report: Vitamin B-12 463 250-900 pcg/mL TISSUE EXAM Reviewed date:07/20/2025 07:42:46 PM Interpretation: [...] is preferred specimen for evaluating avascular necrosis. XR CERVICAL SPINE 4-5 VIEWS Reviewed date:11/19/2024 04:14:57 PM Interpretation: Performing Lab: Notes/Report: Note See Note [facility], a member of [employer] Patient Name: MARÍA PHILLIPS Date of : 1965 Reason for Exam: OTHER Exam Date: 11/18/2024 [id number] EST Report Status: Final Ordering Provider: IKER [...] to the prior neck CTA[place] ([id number]) -------- FINAL REPOR T -------- Dictated By: Dayami Walker i Dictated Date: 11/19/2024 13:40 ET Assigned Physician: Dayami Diehl Reviewed and Electronically Signed By: Dayami Diehl Signed Date: 025 13:45 ET Workstation ID: [id number] Transcribed By: Self Edit Transcribed Date: 11/19/2024 13:40 ET MG MAMMO DIGITAL SCREENING W HERACLIO BILAT Reviewed date:02/06/2025 11:57:46 AM Interpretation: Performing Lab: Notes/Report: Note See Note [facility], a member of [employer] Patient Name: MARÍA PHILLIPS Date of : 1965 Reason for Exam: SCREENING Exam Date: 02/05/2025 [id number] EST Report Status: Final Ordering Provider: IKER [...] is recommended in 1 year. Mammo Location: [facility]amm[facility] at [facility], [address] [place] [address], [address], . -------- FINAL REPOR T -------- Dictated By: Stefani Zamora Dictated Date: 02/06/2025 09:43 ET Assigned Physician: Stefani Zamora Reviewed and Electronically Signed By: Stefani Zamora Signed Date: 025 09:45 ET Workstation ID: [id number] Transcribed By: Self Edit Transcribed Date: 02/06/2025 09:43 ET HEMOGLOBIN A1C Reviewed date:10/29/2024 11:55:59 AM Interpretation: Performing Lab: Notes/Report: Hemoglobin A1C 5.4 <6.5 % Mean Bld Glu Estim. 108 THYROID STIMULATING HORMONE WITH REFLEX TO FREE T4 AND FREE T3 Reviewed date:07/24/2025 02:40:06 PM Interpretation: Performing Lab: Notes/Report: TSH 1.20 0.40-4.00 mcIU/mL THYROID STIMULATING HORMONE WITH REFLEX TO FREE T4 AND FREE T3 Reviewed date:03/06/2025 07:35:25 AM Interpretation: Performing Lab: Notes/Report: TSH 1.43 0.40-4.00 mcIU/mL URINALYSIS WITH REFLEX MICRO SCOPIC AND CULTURE Reviewed date:01/21/2025 02:02:02 PM Interpretation: Performing Lab: Notes/Report: Specific [place] Urine 1.034 1.003-1.030 pH, Urine 6.5 5.0-8.0 pH Leukocytes, Urine Negative Negative Nitrite, Urine Negative Negative Protein, Urine Trace <=Trace mg/dL Glucose, Urine Negative Negative mg/dL Ketones, Urine Negative Negative mg/dL Urobilinogen, Urine 0.2 0.2-1.0 mg/dL Bilirubin, Urine Negative Negative Blood, Urine Negative Negative TRIIODOTHYRONINE FREE Reviewed date:07/24/2025 02:40:06 PM Interpretation: Performing Lab: Notes/Report: T3, Free 316 230-420 pcg/dL COMPREHENSIVE METABOLIC PANE L Reviewed date:10/28/2024 04:25:35 [...] Performing Lab: Notes/Report: Magnesium 2.3 1.9-2.6 mg/dL THYROID STIMULATING HORMONE Reviewed date:10/28/2024 04:25:11 PM Interpretation: Performing Lab: Notes/Report: TSH 0.60 0.40-4.00 mcIU/mL THYROXINE FREE Reviewed date:07/24/2025 02:40:06 PM Interpretation: Performing Lab: Notes/Report: Free T4 1.16 0.70-1.80 ng/dL VITAMIN D 25 HYDROXY Reviewed date:03/06/2025 07:35:20 [...] 1.8 0.0-4.4 CBC WITH AUTO DIFFERENTIAL Reviewed date:03/05/2025 07:32:33 [...] 20 Reviewed date:02/11/2025 07:42:47 AM Interpretation: Performing Lab:[facility], [address] [place] [address] Avenue, [place], Phone - [phone], Director - Elsa Notes/Report: Test(s) 731858-Qsgv-Yk-8 Ab (RDL) was developed and its performance characteristics determined by [facility]. It has not been cleared or approved by the Food and Drug Administration. Anti-La (SS-B) Ab (RDL) <20 <20 Units Negative: <20 Weak Positive: 20-39 Moderate Positive: 40-80 Strong Positive: >80 Anti-Sm Ab (RDL)-236183 Reviewed date:02/11/2025 07:42:50 AM Interpretation: Performing Lab:[facility] [address], Phone - [phone], [facility] [place]/Report: Test(s) 827934-Xaob-Pj-5 Ab (RDL) was developed and its performance characteristics determined by [facility]. It has not been cleared or approved by the Food and Drug Administration. Anti-Sm Ab (RDL) <20 <20 Units Negative: <20 Weak Positive: 20-39 Moderate Positive: 40-80 Strong Positive: >80 Anti-Ro (SS-A) Ab (RDL)-5200 10 Reviewed date:02/11/2025 07:42:55 AM Interpretation: Performing Lab:[facility] [address], Phone - [phone], [facility] Notes/Report: Test(s) 813990-Numi-Fm-4 Ab (RDL) was developed and its performance characteristics determined by [facility]. It has not been cleared or approved by the Food and Drug Administration. Anti-Ro (SS-A) Ab (RDL) <20 <20 Units Negative: <20 Weak Positive: 20-39 Moderate Positive: 40-80 Strong Positive: >80 Anti-Mi-2 Ab (RDL)-889661 Reviewed date:02/11/2025 07:42:59 AM Interpretation: Performing Lab:[facility] [address], Phone - [phone], [facility] Notes/Report: Test(s) 136139-Fnki-Yr-9 Ab (RDL) was developed and its performance characteristics determined by [facility]. It has not been cleared or approved by the Food and Drug Administration. Anti-Mi-2 Ab (RDL) Negative Negative TSH Rfx on Abnormal to Free T4-491355 Reviewed date:07/15/2025 03:58:09 PM Interpretation: Performing Lab:[address], Phone - [phone], [facility] [place]/Report: TSH 0.436 0.450-4.500 uIU/mL T4,Free (Direct) 1.14 0.82-1.77 ng/dL Comp. Metabolic Panel (14)-3 Reviewed date:07/15/2025 08:25:45 AM Interpretation: Performing Lab:[facility], [address] [facility], [place], Phone - [phone], Director - Elsa Notes/Report: Glucose 75 70-99 mg/dL BUN 9 [...] 0-40 IU/L ALT (SGPT) 22 0-32 IU/L Comp. Metabolic Panel (14)- Reviewed date:02/11/2025 07:43:25 AM Interpretation: Performing Lab:[facility], [address] [facility], Phone - [phone], Director - [facility] Notes/Report: Test(s) 596587-Jaox-Km-6 Ab (RDL) was developed and its performance [...] 0-40 IU/L ALT (SGPT) 13 0-32 IU/L Rags-Os-6-545552 Reviewed date:02/11/2025 07:43:02 AM Interpretation: Performing Lab:[facility] [place], [address] [place] [address], Phone - [phone], Director - [facility] Notes/Report: Test(s) 297279-Mybn-Ih-4 Ab (RDL) was developed and its performance characteristics determined by [facility]. It has not been cleared or approved by the Food and Drug Administration. Anti-Lakisha-1 <0.2 0.0-0.9 AI Creatine Kinase (CK), MB-120 816 Reviewed date:02/11/2025 07:43:06 AM Interpretation: Performing Lab:[facility], [address] [place] [address], Phone - [phone], Director - [facility] Notes/Report: Test(s) 078323-Fyim-Zt-6 Ab (RDL) was developed and its performance characteristics determined by [facility]. It has not been cleared or approved by the Food and Drug Administration. Creatine Kinase (CK), MB 1.4 0.0-5.3 ng/mL C-Reactive Protein, Cardiac- 327590 Reviewed date:02/11/2025 07:43:09 AM Interpretation: Performing Lab:[facility] [address], Phone - [phone], [facility] [place]/Report: Test(s) 786850-Xhgd-Bn-1 Ab (RDL) was developed and its performance characteristics determined by [facility]. It has not been cleared or approved by the Food and Drug Administration. C-Reactive Protein, Cardiac 1.34 0.00-3.00 mg/L Relative Risk for Future Cardiovascular Event Low <1.00 Average 1.00 - 3.00 High >3.00 Anti-dsDNA Antibodies-471614 Reviewed date:02/11/2025 07:43:13 AM Interpretation: Performing Lab:[facility] [address], Phone - [phone], [facility] Notes/Report: Test(s) 405251-Uzmq-Ly-6 Ab (RDL) was developed and its performance characteristics determined by [facility]. It has not been cleared or approved by the Food and Drug Administration. Anti-DNA (DS) Ab Qn 1 0-9 IU/mL Negative <5 Equivocal 5 - 9 Positive >9 Complement C3, Serum-034385 Reviewed date:02/11/2025 07:43:16 AM Interpretation: Performing Lab:[facility] [address], Phone - [phone], [facility] Notes/Report: Test(s) 891398-Bnnl-To-2 Ab (RDL) was developed and its performance characteristics determined by [facility]. It has not been cleared or approved by the Food and Drug Administration. Complement C3, Serum 119 82-167 mg/dL Sedimentation Rate-Wester[place] n-808667 Reviewed date:02/11/2025 07:42:43 AM Interpretation: Performing Lab:[facility] [address], Phone - [phone], [facility] Notes/Report: Test(s) 318535-Lcmm-Xt-6 Ab (RDL) was developed and its performance characteristics determined by [facility]. It has not been cleared or approved by the Food and Drug Administration. Sedimentation Rate-Westergren 14 0-40 mm/hr Maryan Barnett CMP14 Default A hand-written panel/profile was received from your office. In accordance with the [facility] Ambiguous Test Code Policy dated May 2003, we have completed your order by using the closest currently or formerly recognized AMA panel. We have assigned Comprehensive Metabolic Panel (14), Test Code #741994 to this request. If this is not the testing you wished to receive on this specimen, please contact the [facility] [employer] Client Inquiry/Technical Services Department to clarify the test order. We appreciate your business. CBC With Differential/Platel et-669280 Reviewed date:02/11/2025 07:43:32 AM Interpretation: Performing Lab:[facility], [address], [place], Phone - [phone], Director - Elsa Notes/Report: Test(s) 908796-Fshp-Yr-5 Ab (RDL) was developed and its performance characteristics determined by [facility]. It has not been cleared or approved [...] % Immature Grans (Abs) 0.0 0.0-0.1 x10E3/uL CBC With Differential/Platel et-217428 Reviewed date:07/15/2025 08:25:37 AM Interpretation: Performing Lab:[facility] [address] [place] [address], Phone - [phone], Director - [facility] Notes/Report: WBC 7.7 3.4-10.8 x10E3/uL RBC 3.91 [...] % Immature Grans (Abs) 0.0 0.0-0.1 x10E3/uL Ferritin-709976 Reviewed date:07/15/2025 08:25:45 AM Interpretation: Performing Lab:[facility] [place] [address] [place] [address], Phone - [phone], [facility] Notes/Report: Ferritin 85 15-150 ng/mL Complement C4, Serum-834951 Reviewed date:02/11/2025 07:43:19 AM Interpretation: Performing Lab:[facility] [place], [address] [place] [address], [place], Phone - [phone], Director [facility] Notes/Report: Test(s) 742220-Gayn-Mj-6 Ab (RDL) was developed and its performance characteristics determined by [facility]. It has not been cleared or approved by the Food and Drug Administration. Complement C4, Serum 18 12-38 mg/dL Iron and TIBC-451625 Reviewed date:07/15/2025 03:58:09 PM Interpretation: Performing Lab:[facility], [address], [place], Phone - [phone], Director - Elsa Notes/Report: Iron Bind.Cap.(TIBC) 371 250-450 ug/dL UIBC 318 131-425 ug/dL Iron 53 27-159 ug/dL Iron Saturation 14 15-55 % EKG (Not yet reviewed by pro vider) Interpretation: Performing Lab: Notes/Report: ECGDiastolicBP 68 ECGHr 73 ECGPRInterval 158 ECGPWaveAxis 34 ECGQRSDuration 78 ECGQrsWaveAxis 33 ECGQTcInterval 404 ECGQTInterval 382 ECGSystolicBP 116 ECGTWaveAxis 31 RR_DiastolicBP 0 RR_MaxRRInterval 0 RR_MeanHR 0 RR_MeanRRInterval 0 RR_MinRRInterval 0 RR_NumBeats 0 RR_NumNormalBeats 0 RR_SystolicBP 0 XR FLUORO UP TO 1 HOUR Reviewed date:02/04/2025 05:11:16 PM Interpretation: Performing Lab: Notes/Report: Note See Note [facility], a member of [employer] Patient Name: MARÍA PHILLIPS Date of : 1965 Reason for Exam: pain Exam Date: 02/04/2025 [id number] EST Report Status: Final Ordering Provider: DAVID [...] Signed Date: 025 12:53 ET Workstation ID: [id number] Transcribed By: Self Edit Transcribed Date: 02/04/2025 12:51 ET HELICOBACTER PYLORI ANTIGEN, STOOL Reviewed date:05/13/2025 04:03:38 PM Interpretation: Performing Lab: Notes/Report: Helicobacter Pylori Ag DETECTED Not detected This test was performed at [facility] using a chemiluminescent immunoassay intended for [...] Food and Drug Administration. Test performed at [facility], [address] [place] [address] Krystina Austin MD, PhD - Monomer Recovery Operator XR SHOULDER 2+ VIEWS BILAT Reviewed date:01/08/2025 05:02:44 PM Interpretation: Performing Lab: Notes/Report: Note See Note [facility], a member of [employer] Patient Name: MARÍA PHILLIPS Date of : 1965 Reason for Exam: bilateral shoulder pain Exam Date: 01/08/2025 [id number] EST Report Status: Final Ordering Provider: NICHELLE [...] tendinitis and narro wing of subacromial space BORRELIA BURGDORFERI ANTIBOD Y Reviewed date:12/06/2024 12:06:22 PM Interpretation: Performing Lab: Notes/Report: Lyme Ab Negative Negative No laboratory evidence of infection with B. burgdorferi (Lyme disease). Negative results may occur in patients recently infected (<=14 days) with B. burgdorferi. If recent infection is suspected, repeat testing on a new sample collected in 7-14 days is recommended. US HEAD NECK SOFT TISSUE Reviewed date:02/10/2025 05:04:59 PM Interpretation: Performing Lab: Notes/Report: Note See Note [facility], a member of [employer] Patient Name: MARÍA PHILLIPS Date of : 1965 Reason for Exam: ENLARGED LYMPHNODE Exam Date: 02/08/2025 [id number] EST Report Status: Final Ordering Provider: CHINO [...] Signed Date: 025 15:55 ET Workstation ID: [id number] Transcribed By: Self Edit Transcribed Date: 02/08/2025 15:52 ET XR ESOPHAGRAM Reviewed date:01/01/2025 09:27:26 AM Interpretation: Performing Lab: Notes/Report: Note See Note [facility], a member of [facility] Patient Name: MARÍA PHILLIPS Date of : 1965 Reason for Exam: DYSPHAGIA Exam Date: 12/26/2024 [id number] EST Report Status: Final Ordering Provider: BARBARA MORRISSEY PCP: IKER ROBLERO FINDINGS: Double contrast esophagram performed. COMPARISON: Esophagr am March 04, 2022 HISTORY: Patient is a 59-year-old female with history of globus sensation. Epigastric pain. Acid Extractor radiographs: 1 view chest radiograph demonstrates cardiac [...] Signed Date: 025 08:28 ET Workstation ID: [id number] Transcribed By: Self Edit Transcribed Date: 12/26/2024 13:36 ET Resident/PA/SECURITY SERVICES SPECIALIST: Soar es, Lidia Reason For Referral Reason [facility] Diagnosis 1 Shoulder pain, unspe cified chronicity, unspecified laterality (M25.519) Referral Organization [facility] [address] Referring Provider First Name IKER Referring Provider Last Name REEVES Referring Provider Speciality Preventive Medicine Referred Provider Specialty Orthopedic S urgery General Notes Letitia Cox 025 10:47:57 AM > Referral faxed over to [facility] for Bilateral shoulder pain P. [phone] Referral Priority Routine Reason Sleep Medicine Servi [facility]; sleep study; loud snoring Diagnosis 1 Loud snoring (R06.83 ) Referral Organization [facility] [address] Referring Provider First Name IKER Referring Provider Last Name REEVES Referring Provider Speciality Preventive Medicine Referred Provider Specialty Sleep Medici ne General Notes [address] [facility] [address] (p) [phone], (f) [phone] Clinical Notes Maryann Cox 02:10:39 PM > I called the office and they informed me that they had reached out to the patient and are just waiting for a callback to schedule an appt Referral Priority Routine Reason pain management : ri ght rib pain Diagnosis 1 Rib pain on right si de (R07.81) Referral Organization [facility] [address] Referring Provider First Name IKER Referring Provider Last Name REEVES Referring Provider Speciality Preventive Medicine Referred Provider Specialty Pain Medicin e Clinical Notes Zoila Narayanan 04/25 09:57:57 AM > Family Physiatry, Address: [address] [place] [address], , Fax number: [phone], Maryann Cox 06/17/2025 02:17:36 PM > The patient was scheduled for 06/05 but she no showed and has not rescheduled yet Referral Priority Routine Reason [facility]; easy bruising Diagnosis 1 Easy bruising (R23.3 ) Referral Organization [facility] [address] Referring Provider First Name IKER Referring Provider Last Name REEVES Referring Provider Speciality Preventive Medicine Referred Provider Specialty Dermatology General Notes [address], (p) [phone], (f) [phone] Clinical Notes Caern Narayanan 08:43:03 AM > referral faxed with notes Referral Priority Routine Reason Dr. Hoffman Diagnosis 1 Pulmonary nodule (R9 1.1) Diagnosis 2 Centrilobular emphys christine (J43.2) Referral Organization [facility] [address] Referring Provider First Name IKER Referring Provider Last Name REEVES Referring Provider Speciality Preventive Medicine Referred Provider Specialty Pulmonology General Notes XAVIER VILLANUEVA 06/09 08:34:07 AM > Referral faxed, Dr Hoffman - Pulmonology and Sleep Medicine, [address] [place] [address], , Clinical Notes Julien Coxfani 10/2025 02:17:04 PM > The patient was scheduled for 06/05 but she no showed and has not rescheduled yet Referral Priority Routine Reason [facility] Diagnosis 1 Chronic pain syndrom e (G89.4) Diagnosis 2 Cervical pain (M54.2 ) Referral Organization [facility] [address] Referring Provider First Name IKER Referring Provider Last Name REEVES Referring Provider [facility] Referred Provider Specialty Orthopedic S urgery General Notes XAVIER VILLANUEVA 06/26 08:13:11 AM > Referral has been faxed, [facility], [address] [place] [id number], , Clinical Notes Julien Coxfani 02:25:30 PM > I called the office, and they informed me they had reached out to the patient multiple times with no response. I then spoke with the patient, who stated she was not aware a referral had been sent. She said she will call the office back Referral Priority Stat Reason Spine Surgery - [facility] Diagnosis 1 Lumbar back pain (M5 4.50) Diagnosis 2 Chronic lumbar radic ulopathy (M54.16) Referral Organization [facility] [address] Referring Provider First Name IKER Referring Provider Last Name REEVES Referring Provider Speciality Preventive Medicine Referred Provider Specialty Spinal Cord Injury Medicine General Notes XAVIER VILLANUEVA 07/08 03:54:08 PM > referral has been initiated & faxed, [facility]- Spine Surgery, [address], [address], [place], , Most recent MRI was done at [facility] 01/14/25 Clinical Notes Maryann Cox 01/2025 02:17:15 PM > I called [facility] Spine Surgery, and they are requesting an [...] Status W/U Status Risk Notes Problem Hyperkalemia (80365289) Hyperkalemia (E87.5) Active confirmed Problem Chronic pain syndrome (916854502) Chronic pain syndrome (G89.4) Active confirmed Problem Centrilobular emphysema (59904331) Centrilobular emphysema (J43.2) Active confirmed Problem Pulmonary nodule (226102128) Pulmonary nodule (R91.1) Active confirmed Problem Breathing painful (55672142) Rib pain on right side (R07.81) Active confirmed Problem Tremor (12881716) Tremor (R25.1) Active confirm ed Problem Chronic fatigue syndrome (72474035) Chronic fatigue (R53.82) Active confirmed Problem Paresthesia (finding) (40974130) Paresthesias (R20.2) Active confirmed Problem Lumbar radiculopathy (701599118) Chronic lumbar radiculopathy (M54.16) Active confirmed Problem Cervical pain (52652329) Cervical pain (M54.2) Active confirmed Problem Mixed anxiety and depressive disorder (649196301) Depression with anxiety (F41.8) Active confirmed Problem 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 Problem Inactive tuberculosis (finding) (11084467) History of latent tuberculosis (Z86.15) Active confirmed Problem Rheumatoid arthritis (23255200) Rheumatoid arthritis involving multiple sites, unspecified whether rheumatoid factor present (M06.9) Active confirmed Problem Rheumatoid arthritis (71055964) Rheumatoid arthritis involving multiple sites with positive rheumatoid factor (M05.79) Active confirmed Problem Lymphadenopathy (67728034) Lymphadenopathy, axillary (R59.0) Active confirmed Problem Cervical spondylosis (287202892) Cervical spondylosis (M47.812) Active confirmed Problem General weakness (29860194) Generalized weakness (R53.1) Active confirmed Problem 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 [address] [place] [address] 10/28/2024 IKER ROBLERO Rheumatoid arthritis involving multiple sites, unspecified whether rheumatoid factor present M06.9 ; Tremor R25.1 ; Slipped rib syndrome M94.0 ; History of latent tuberculosis Z86.15 ; Depression with anxiety F41.8 and Rock's disease E06.3 [facility] [address] [facility] [address] [place] [address] 11/18/2024 IKER ROBLERO Tremor R25.1 ; Cervi veronica spondylosis M47.812 ; Rock's disease E06.3 ; Pain in right arm M79.601 ; Pain in left arm M79.602 ; History of recent fall Z91.81 ; Rheumatoid arthritis involving multiple sites with positive rheumatoid factor M05.79 ; Slipped rib syndrome M94.0 and Depression with anxiety F41.8 [facility] [address] [facility] [address] [place] [address] 01/22/2025 CHINO BIRKS Neck pain on right s angela M54.2 ; Rheumatoid arthritis involving multiple sites with positive rheumatoid factor M05.79 ; Slipped rib syndrome M94.0 ; Rock's disease E06.3 and Depression with anxiety F41.8 [facility] [address] [facility] [address] [place] [address] 02/03/2025 CHINO YBARRA Lymphadenopathy, axillary R59.0 ; Rheumatoid arthritis involving multiple sites, unspecified whether rheumatoid factor present M06.9 ; Rock's disease E06.3 ; Slipped rib syndrome M94.0 ; Anxiety, generalized F41.1 and Tendon calcification M65.80 [facility] [address] [facility] [address] [place] [address] 03/05/2025 IKER ROBLERO Rib pain on right si de R07.81 ; Annual physical exam Z00.00 ; Chronic fatigue R53.82 ; Hyperkalemia E87.5 ; Slipped rib syndrome M94.0 ; Depression with anxiety F41.8 and Rheumatoid arthritis involving multiple sites with positive rheumatoid factor M05.79 [facility] [address] [address] 03/21/2025 IKER ROBLERO Heart palpitations R00.2 ; Weakness R53.1 and Dyspnea on exertion R06.09 [facility] [address] [address] 04/23/2025 IKER ROBLERO Depression with anxi ety F41.8 ; Heavy alcohol use F10.90 ; Chronic pain syndrome G89.4 ; Slipped rib syndrome M94.0 ; Rheumatoid arthritis involving multiple sites with positive rheumatoid factor M05.79 ; Pulmonary nodule R91.1 ; History of latent tuberculosis Z86.15 and Loud snoring R06.83 [facility] [address] [address] 05/05/2025 IKER ROBLERO Spontaneous ecchymos es R23.3 ; Skin tear of left upper extremity S41.112A ; Irregular bowel habits R19.8 ; Depression with anxiety F41.8 ; Chronic pain syndrome G89.4 and Rheumatoid arthritis involving multiple sites with positive rheumatoid factor M05.79 [facility] [address] [address] 06/18/2025 IKER ROBLERO Chronic pain syndrom e G89.4 ; Cervical pain M54.2 and Recurrent low back pain M54.50 [facility] [address] [address] [place] [address] 10/29/2024 IKER ANNIKA [facility] [address] [place] [address] 11/04/2024 IKER ANNIKA [facility] [address] [place] [address] 11/07/2024 IKER REEVES [facility] [address] [address] [place] [address] 11/19/2024 IKER ANNIKA [facility] [address] [facility] [address] [place] [address] 12/03/2024 IKER REEVES [facility] [address] [address] [place] [address] 12/13/2024 IKER ANNIKA [facility] [address] [address] [place] [address] 12/13/2024 IKER LEDESMAHAM Generalized weakness R53.1 and Paresthesias R20.2 [facility] [address] [address] [place] [address] 12/16/2024 IKER REEVES [facility] [address] [address] [place] [address] 12/26/2024 IKER REEVES [facility] [address] [address] [place] [address] 12/31/2024 IKER REEVES [facility] [address] [address] [place] [address] 01/02/20[address]EEVES [facility] [address] [place] [address] 01/07/2025 IKER REEVES [facility] [address] [place] [address] 01/21/2025 IKER REEVES [facility] [address] [address] [place] [address] 01/24/2025 IKER REEVES [facility] [address] [place] [address] 02/03/2025 IKER REEVES [facility] [address] [place] [address] 02/03/2025 IKER REEVES [facility] [address] [address] [place] [address] 02/10/2025 IKER REEVES [facility] [address] [address] [place] [address] 03/05/2025 IKER ANNIKA Chronic fatigue R53. 82 ; Elevated lipids E78.5 ; Anemia due to vitamin B12 deficiency, unspecified B12 deficiency type D51.9 and Vitamin D deficiency E55.9 [facility] [address] [place] [address] 03/05/2025 IKER REEVES [facility] [address] [address] [place] [address] 03/05/2025 IKER REEVES [facility] [address] [address] [place] [address] 03/05/2025 IKER REEVES [facility] [address] [address] [place] [address] 03/21/2025 IKER REEVES [facility] [address] [place] [address] 03/24/2025 IKER REEVES [facility] [address] [place] [address] 04/22/2025 IKER REEVES [facility] [address] [place] [address] 04/25/2025 IKER REEVES [facility] [address] [place] [address] 05/01/2025 IKER REEVES [facility] [address] [place] [address] 05/05/2025 IKER REEVES [facility] [address] [address] [place] [address] 05/06/2025 IKER REEVES [facility] [address] [place] [address] 05/13/2025 IKER REEVES [facility] [address] [place] [address] 05/13/2025 IKER REEVES [facility] [address] [facility] [address] [place] [address] 06/03/2025 IKER REEVES [facility] [address] [place] [address] 06/18/2025 IKER REEVES [facility] [address] [place] [address] 06/19/2025 IKER REEVES Cervical pain M54.2 ; Cervical spondylosis M47.812 and Chronic pain syndrome G89.[address] [facility] [address] [place] [address] 06/25/2025 IKER REEVES [facility] [address] [place] [address] 07/08/2025 IKER REEVES [facility] [address] [place] [address] 07/08/2025 IKER REEVES [facility] [address] [address] [place] [address] 07/09/2025 IKER REEVES [facility] [address] [place] [address] 07/15/2025 IKER REEVES Rock's disease E06.3 [facility] [address] [place] [address] 12/09/2024 IKER REEVES [facility] [address] [place] [address] 12/13/2024 IKER REEVES [facility] [address] [place] [address] 12/14/2024 IKER REEVES [facility] [address] [place] [address] 12/14/2024 [facility] [address] [place] [address] 12/15/2024 IKER REEVES [facility] [address] [place] [address] 12/18/2024 IKER REEVES [facility] [address] [place] [address] 01/01/2025 IKER REEVES [facility] [address] [place] [address] 01/21/2025 [facility] [address] [place] [address] 01/27/2025 IKER REEVES Breast cancer screen ing by mammogram Z12.31 [facility] [address] [place] [address] 03/21/2025 IKER REEVES [facility] [address] [address] [place] [address] 04/30/2025 IKER REEVES [facility] [address] [address] [place] [address] 05/01/2025 IKER REEVES [facility] [address] [address] [place] [address] 05/01/2025 IKER REEVES [facility] [address] [place] [address] 06/06/2025 IKER REEVES [facility] [address] [place] [address] 06/09/2025 IKER REEVES [facility] [address] [place] [address] 06/14/2025 IKER REEVES [facility] [address] [place] [address] 06/20/2025 IKER REEVES [facility] [address] [place] [address] 06/23/2025 IKER REEVES [facility] [address] [place] [address] 06/30/2025 IKER REEVES [facility] [address] [place] [address] 07/12/2025 [facility] Adult general medica l exam Z00.00 and Screening for thyroid disorder Z13.29 [facility] [address] [place] [address] 07/15/2025 IKER REEVES [facility] [address] [place] [address] 07/16/2025 [facility] Assessments Encounter Date Diagnosis (ICD Code) Assessment [...] Patient reports history of RA. Follows with bindery operator Dr. Clark out of [place]. Has been treated previously with Humira, Enbrel, [...] was diagnosed by Dr. Dubon out of [place], [place]. Taking methocarbamol 750 mg 3 times [...] reviewed. Dictation completed with the use of [employer] voice recognition software, prone to medical misidentifications [...] Patient reports history of RA. Follows with bindery operator Dr. Clark out of [place]. Has been treated previously with Humira, Enbrel, [...] was diagnosed by Dr. Dubon out of [place], [place]. Taking methocarbamol 750 mg 3 times [...] reviewed. Dictation completed with the use of [employer] voice recognition software, prone to medical misidentifications [...] for 11/20/2024. #Recent fall: Patient seen at [facility] ED 11/02/2024 s/p fall at work. Denied [...] diffuse joint pain and fatigue. Follows with bindery operator Dr. Clark out of [place], records requested and not yet available for my review. 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 States this was diagnosed by Dr. Dubon out of [place], [place]. Taking methocarbamol 750 mg 3 times [...] reviewed. Dictation completed with the use of [employer] voice recognition software, prone to medical misidentifications [...] for 11/20/2024. #Recent fall: Patient seen at [facility] ED 11/02/2024 s/p fall at work. Denied [...] diffuse joint pain and fatigue. Follows with bindery operator Dr. Clark out of [place], records requested and not yet available for my review. 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 States this was diagnosed by Dr. Dubon out of [place], [place]. Taking methocarbamol 750 mg 3 times [...] reviewed. Dictation completed with the use of [employer] voice recognition software, prone to medical misidentifications [...] was diagnosed by Dr. Dubon out of [place], [place]. Taking methocarbamol 750 mg 3 times [...] Dictation was accomplished with the use of [employer] voice recognition software, which is prone to [...] collection. Patient reports recent blood work through [facility] which we will request, otherwise last TSH [...] was diagnosed by Dr. Dubon out of [place], [place]. Taking methocarbamol 750 mg 3 times [...] Dictation was accomplished with the use of [employer] voice recognition software, which is prone to [...] was diagnosed by Dr. Dubon out of [place]. Taking methocarbamol 750 mg 3 times [...] Dictation was accomplished with the use of [employer] voice recognition software, which is prone to [...] was diagnosed by Dr. Dubon out of [place]. Taking methocarbamol 750 mg 3 times [...] Dictation was accomplished with the use of [employer] voice recognition software, which is prone to [...] rib syndrome: Follows with Dr. Dubon with [facility]. Underwent repair 12/17/2024. #Ventral hernia: Surgical [...] arthritis: + Rheumatoid factor (152). Follows with bindery operator Dr. Joshua Kaplan out of [place]. Follow-up labs including CAMILO, ESR/CRP, and comprehensive [...] Follows with psychiatric provider Clarice Lara with [facility]. Taking clonazepam 0.5 mg once [...] dysfunction. #Hyperkalemia: Patient reports she was at [facility] ED recently at which time her potassium [...] reviewed. Dictation completed with the use of [employer] voice recognition software, prone to medical misidentifications [...] rib syndrome: Follows with Dr. Dubon with [facility]. Underwent repair 12/17/2024. #Ventral hernia: Surgical [...] arthritis: + Rheumatoid factor (152). Follows with bindery operator Dr. Joshua Kaplan out of [place]. Follow-up labs including CAMILO, ESR/CRP, and comprehensive [...] Follows with psychiatric provider Clarice Lara with [facility]. Taking clonazepam 0.5 mg once [...] dysfunction. #Hyperkalemia: Patient reports she was at [facility] ED recently at which time her potassium [...] reviewed. Dictation completed with the use of [employer] voice recognition software, prone to medical misidentifications [...] reviewed. Dictation completed with the use of [employer] voice recognition software, prone to medical misidentifications [...] reviewed. Dictation completed with the use of [employer] voice recognition software, prone to medical misidentifications [...] ER follow-up hospital follow-up. María presented to [facility] ED 04/19/2025 with chief complaint of suicidal [...] time. She has since established with therapist Julieta Christian which she feels will be helpful, [...] taking any pain medication. Previously followed with embossed or impressed lettering painter Dr. Trivedi who provided steroid injections. [...] with added opioid use. WIll refer to embossed or impressed lettering painter with goal of establishing safe pain management regimen. #RA: Follows with Joshua Kaplan MD out of [place]. Discussed possibility of chronic pain being related [...] reviewed. Dictation completed with the use of [employer] voice recognition software, prone to medical misidentifications [...] ER follow-up hospital follow-up. María presented to [facility] ED 04/19/2025 with chief complaint of suicidal [...] time. She has since established with therapist Julieta Christian which she feels will be helpful, [...] taking any pain medication. Previously followed with embossed or impressed lettering painter Dr. Trivedi who provided steroid injections. [...] with added opioid use. WIll refer to embossed or impressed lettering painter with goal of establishing safe pain management regimen. #RA: Follows with Joshua Kaplan MD out of [place]. Discussed possibility of chronic pain being related [...] reviewed. Dictation completed with the use of [employer] voice recognition software, prone to medical misidentifications [...] is encouraged to contact rheum (Dr. Joshua Kaplan) to discuss involvement of RA medication. On review of most recent CBC, RBC mildly low and MCV high. Will order CBC, CMP, B12, and folate for continued evaluation. Patient requesting dermatology referral, referral provided. #Irregular bowel movements: Patient requesting urgent colonoscopy per recommendation of [facility] surgeon Jewel Dubon. On review of [...] right ribs. Denies SI/HI. Follows with therapist Julieta Fernandez once weekly and psychiatric provider Clarice [...] gabapentin TID without symptom improvement. Follows with embossed or impressed lettering painter Dr. Trivedi. Historically the patient has [...] reviewed. Dictation completed with the use of [employer] voice recognition software, prone to medical misidentifications [...] is encouraged to contact rheum (Dr. Joshua Kaplan) to discuss involvement of RA medication. On review of most recent CBC, RBC mildly low and MCV high. Will order CBC, CMP, B12, and folate for continued evaluation. Patient requesting dermatology referral, referral provided. #Irregular bowel movements: Patient requesting urgent colonoscopy per recommendation of [facility] surgeon Jewel Dubon. On review of [...] right ribs. Denies SI/HI. Follows with therapist Julieta Fernandez once weekly and psychiatric provider Clarice [...] gabapentin TID without symptom improvement. Follows with embossed or impressed lettering painter Dr. Trivedi. Historically the patient has [...] reviewed. Dictation completed with the use of [employer] voice recognition software, prone to medical misidentifications [...] TID without significant symptom improvement. Follows with embossed or impressed lettering painter Dr. Trivedi, orthopedic provider Nichelle Carrillo [...] reviewed. Dictation completed with the use of [employer] voice recognition software, prone to medical misidentifications [...] TID without significant symptom improvement. Follows with embossed or impressed lettering painter Dr. Trivedi, orthopedic provider Nichelle Carrillo [...] reviewed. Dictation completed with the use of [employer] voice recognition software, prone to medical misidentifications [...] TID without significant symptom improvement. Follows with embossed or impressed lettering painter Dr. Trivedi, orthopedic provider Nichelle Carrillo [...] reviewed. Dictation completed with the use of [employer] voice recognition software, prone to medical misidentifications [...] is encouraged to contact rheum (Dr. Joshua Kaplan) to discuss involvement of RA medication. On review of most recent CBC, RBC mildly low and MCV high. Will order CBC, CMP, B12, and folate for continued evaluation. Patient requesting dermatology referral, referral provided. #Irregular bowel movements: Patient requesting urgent colonoscopy per recommendation of [facility] surgeon Jewel Dubon. On review of [...] right ribs. Denies SI/HI. Follows with therapist Julieta Fernandez once weekly and psychiatric provider Clarice [...] gabapentin TID without symptom improvement. Follows with embossed or impressed lettering painter Dr. Trivedi. Historically the patient has [...] reviewed. Dictation completed with the use of [employer] voice recognition software, prone to medical misidentifications [...] reviewed. Dictation completed with the use of [employer] voice recognition software, prone to medical misidentifications [...] ER follow-up hospital follow-up. María presented to [facility] ED 04/19/2025 with chief complaint of suicidal [...] time. She has since established with therapist Julieta Christian which she feels will be helpful, [...] taking any pain medication. Previously followed with embossed or impressed lettering painter Dr. Trivedi who provided steroid injections. [...] with added opioid use. WIll refer to embossed or impressed lettering painter with goal of establishing safe pain management regimen. #RA: Follows with Joshua Kaplan MD out of [place]. Discussed possibility of chronic pain being related [...] reviewed. Dictation completed with the use of [employer] voice recognition software, prone to medical misidentifications [...] rib syndrome: Follows with Dr. Dubon with [facility]. Underwent repair 12/17/2024. #Ventral hernia: Surgical [...] arthritis: + Rheumatoid factor (152). Follows with bindery operator Dr. Joshua Kaplan out of [place]. Follow-up labs including CAMILO, ESR/CRP, and comprehensive [...] Follows with psychiatric provider Clarice Lara with [facility]. Taking clonazepam 0.5 mg once [...] dysfunction. #Hyperkalemia: Patient reports she was at [facility] ED recently at which time her potassium [...] reviewed. Dictation completed with the use of [employer] voice recognition software, prone to medical misidentifications [...] was diagnosed by Dr. Dubon out of [place], [place]. Taking methocarbamol 750 mg 3 times [...] Dictation was accomplished with the use of [employer] voice recognition software, which is prone to [...] was diagnosed by Dr. Dubon out of [place], [place]. Taking methocarbamol 750 mg 3 times [...] Dictation was accomplished with the use of [employer] voice recognition software, which is prone to [...] for 11/20/2024. #Recent fall: Patient seen at [facility] ED 11/02/2024 s/p fall at work. Denied [...] diffuse joint pain and fatigue. Follows with bindery operator Dr. Clark out of [place], records requested and not yet available for my review. 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 States this was diagnosed by Dr. Dubon out of [place], [place]. Taking methocarbamol 750 mg 3 times [...] reviewed. Dictation completed with the use of [employer] voice recognition software, prone to medical misidentifications [...] Patient reports history of RA. Follows with bindery operator Dr. Clark out of [place]. Has been treated previously with Humira, Enbrel, [...] inhalation/exhalation. States this was diagnosed by Dr. uDbon out of [place], [place]. Taking methocarbamol 750 mg 3 times [...] reviewed. Dictation completed with the use of [employer] voice recognition software, prone to medical misidentifications [...] for 11/20/2024. #Recent fall: Patient seen at [facility] ED 11/02/2024 s/p fall at work. Denied [...] diffuse joint pain and fatigue. Follows with bindery operator Dr. Clark out of [place], records requested and not yet available for my review. 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 States this was diagnosed by Dr. Dubon out of [place], [place]. Taking methocarbamol 750 mg 3 times [...] reviewed. Dictation completed with the use of [employer] voice recognition software, prone to medical misidentifications [...] Patient reports history of RA. Follows with bindery operator Dr. Clark out of [place]. Has been treated previously with Humira, Enbrel, [...] was diagnosed by Dr. Dubon out of [place], [place]. Taking methocarbamol 750 mg 3 times [...] reviewed. Dictation completed with the use of [employer] voice recognition software, prone to medical misidentifications [...] was diagnosed by Dr. Dubon out of [place]. Taking methocarbamol 750 mg 3 times [...] Dictation was accomplished with the use of [employer] voice recognition software, which is prone to [...] was diagnosed by Dr. Dubon out of [place], [place]. Taking methocarbamol 750 mg 3 times [...] Dictation was accomplished with the use of [employer] voice recognition software, which is prone to [...] rib syndrome: Follows with Dr. Dubon with [facility]. Underwent repair 12/17/2024. #Ventral hernia: Surgical [...] arthritis: + Rheumatoid factor (152). Follows with bindery operator Dr. Joshua Kaplan out of [place]. Follow-up labs including CAMILO, ESR/CRP, and comprehensive [...] Follows with psychiatric provider Clarice Lara with [facility]. Taking clonazepam 0.5 mg once [...] dysfunction. #Hyperkalemia: Patient reports she was at [facility] ED recently at which time her potassium [...] reviewed. Dictation completed with the use of [employer] voice recognition software, prone to medical misidentifications [...] is encouraged to contact rheum (Dr. Joshua Kaplan) to discuss involvement of RA medication. On review of most recent CBC, RBC mildly low and MCV high. Will order CBC, CMP, B12, and folate for continued evaluation. Patient requesting dermatology referral, referral provided. #Irregular bowel movements: Patient requesting urgent colonoscopy per recommendation of [facility] surgeon Jewel Dubon. On review of [...] right ribs. Denies SI/HI. Follows with therapist Julieta Fernandez once weekly and psychiatric provider Clarice [...] gabapentin TID without symptom improvement. Follows with embossed or impressed lettering painter Dr. Trivedi. Historically the patient has [...] reviewed. Dictation completed with the use of [employer] voice recognition software, prone to medical misidentifications [...] ER follow-up hospital follow-up. María presented to [facility] ED 04/19/2025 with chief complaint of suicidal [...] time. She has since established with therapist Julieta Christian which she feels will be helpful, [...] taking any pain medication. Previously followed with embossed or impressed lettering painter Dr. Trivedi who provided steroid injections. [...] with added opioid use. WIll refer to embossed or impressed lettering painter with goal of establishing safe pain management regimen. #RA: Follows with Joshua Kaplan MD out of [place]. Discussed possibility of chronic pain being related [...] reviewed. Dictation completed with the use of [employer] voice recognition software, prone to medical misidentifications [...] is encouraged to contact rheum (Dr. Joshua Kaplan) to discuss involvement of RA medication. On review of most recent CBC, RBC mildly low and MCV high. Will order CBC, CMP, B12, and folate for continued evaluation. Patient requesting dermatology referral, referral provided. #Irregular bowel movements: Patient requesting urgent colonoscopy per recommendation of [facility] surgeon Jewel Dubon. On review of [...] right ribs. Denies SI/HI. Follows with therapist Julieta Fernandez once weekly and psychiatric provider Clarice [...] gabapentin TID without symptom improvement. Follows with embossed or impressed lettering painter Dr. Trivedi. Historically the patient has [...] reviewed. Dictation completed with the use of [employer] voice recognition software, prone to medical misidentifications [...] ER follow-up hospital follow-up. María presented to [facility] ED 04/19/2025 with chief complaint of suicidal [...] time. She has since established with therapist Julieta Christian which she feels will be helpful, [...] taking any pain medication. Previously followed with embossed or impressed lettering painter Dr. Trivedi who provided steroid injections. [...] with added opioid use. WIll refer to embossed or impressed lettering painter with goal of establishing safe pain management regimen. #RA: Follows with Joshua Kaplan MD out of [place]. Discussed possibility of chronic pain being related [...] reviewed. Dictation completed with the use of [employer] voice recognition software, prone to medical misidentifications [...] rib syndrome: Follows with Dr. Dubon with [facility]. Underwent repair 12/17/2024. #Ventral hernia: Surgical [...] arthritis: + Rheumatoid factor (152). Follows with bindery operator Dr. Joshua Kaplan out of [place]. Follow-up labs including CAMILO, ESR/CRP, and comprehensive [...] Follows with psychiatric provider Clarice Lara with [facility]. Taking clonazepam 0.5 mg once [...] dysfunction. #Hyperkalemia: Patient reports she was at [facility] ED recently at which time her potassium [...] reviewed. Dictation completed with the use of [employer] voice recognition software, prone to medical misidentifications [...] was diagnosed by Dr. Dubon out of [place], [place]. Taking methocarbamol 750 mg 3 times [...] Dictation was accomplished with the use of [employer] voice recognition software, which is prone to [...] was diagnosed by Dr. Dubon out of [place], [place]. Taking methocarbamol 750 mg 3 times [...] Dictation was accomplished with the use of [employer] voice recognition software, which is prone to [...] for 11/20/2024. #Recent fall: Patient seen at [facility] ED 11/02/2024 s/p fall at work. Denied [...] diffuse joint pain and fatigue. Follows with bindery operator Dr. Clark out of [place], records requested and not yet available for my review. 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 States this was diagnosed by Dr. Dubon out of [place], [place]. Taking methocarbamol 750 mg 3 times [...] reviewed. Dictation completed with the use of [employer] voice recognition software, prone to medical misidentifications [...] Patient reports history of RA. Follows with bindery operator Dr. Clark out of [place]. Has been treated previously with Humira, Enbrel, [...] was diagnosed by Dr. Dubon out of [place], [place]. Taking methocarbamol 750 mg 3 times [...] reviewed. Dictation completed with the use of [employer] voice recognition software, prone to medical misidentifications [...] for 11/20/2024. #Recent fall: Patient seen at [facility] ED 11/02/2024 s/p fall at work. Denied [...] diffuse joint pain and fatigue. Follows with bindery operator Dr. Clark out of [place], records requested and not yet available for my review. 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 States this was diagnosed by Dr. Dubon out of [place], [place]. Taking methocarbamol 750 mg 3 times [...] reviewed. Dictation completed with the use of [employer] voice recognition software, prone to medical misidentifications [...] Patient reports history of RA. Follows with bindery operator Dr. Clark out of [place]. Has been treated previously with Humira, Enbrel, [...] was diagnosed by Dr. Dubon out of [place], [place]. Taking methocarbamol 750 mg 3 times [...] reviewed. Dictation completed with the use of [employer] voice recognition software, prone to medical misidentifications [...] was diagnosed by Dr. Dubon out of [place], [place]. Taking methocarbamol 750 mg 3 times [...] Dictation was accomplished with the use of [employer] voice recognition software, which is prone to [...] rib syndrome: Follows with Dr. Dubon with [facility]. Underwent repair 12/17/2024. #Ventral hernia: Surgical [...] arthritis: + Rheumatoid factor (152). Follows with bindery operator Dr. Joshua Kaplan out of [place]. Follow-up labs including CAMILO, ESR/CRP, and comprehensive [...] Follows with psychiatric provider Clarice Lara with [facility]. Taking clonazepam 0.5 mg once [...] dysfunction. #Hyperkalemia: Patient reports she was at [facility] ED recently at which time her potassium [...] reviewed. Dictation completed with the use of [employer] voice recognition software, prone to medical misidentifications [...] is encouraged to contact rheum (Dr. Joshua Kaplan) to discuss involvement of RA medication. On review of most recent CBC, RBC mildly low and MCV high. Will order CBC, CMP, B12, and folate for continued evaluation. Patient requesting dermatology referral, referral provided. #Irregular bowel movements: Patient requesting urgent colonoscopy per recommendation of [facility] surgeon Jewel Dubon. On review of [...] right ribs. Denies SI/HI. Follows with therapist Julieta Fernandez once weekly and psychiatric provider Clarice [...] gabapentin TID without symptom improvement. Follows with embossed or impressed lettering painter Dr. Trivedi. Historically the patient has [...] reviewed. Dictation completed with the use of [employer] voice recognition software, prone to medical misidentifications [...] ER follow-up hospital follow-up. María presented to [facility] ED 04/19/2025 with chief complaint of suicidal [...] time. She has since established with therapist Julieta Christian which she feels will be helpful, [...] taking any pain medication. Previously followed with embossed or impressed lettering painter Dr. Trivedi who provided steroid injections. [...] with added opioid use. WIll refer to embossed or impressed lettering painter with goal of establishing safe pain management regimen. #RA: Follows with Joshua Kaplan MD out of [place]. Discussed possibility of chronic pain being related [...] reviewed. Dictation completed with the use of [employer] voice recognition software, prone to medical misidentifications [...] ER follow-up hospital follow-up. María presented to [facility] ED 04/19/2025 with chief complaint of suicidal [...] time. She has since established with therapist Julieta Christian which she feels will be helpful, [...] taking any pain medication. Previously followed with embossed or impressed lettering painter Dr. Trivedi who provided steroid injections. [...] with added opioid use. WIll refer to embossed or impressed lettering painter with goal of establishing safe pain management regimen. #RA: Follows with Joshua Kaplan MD out of [place]. Discussed possibility of chronic pain being related [...] reviewed. Dictation completed with the use of [employer] voice recognition software, prone to medical misidentifications [...] rib syndrome: Follows with Dr. Dubon with [facility]. Underwent repair 12/17/2024. #Ventral hernia: Surgical [...] arthritis: + Rheumatoid factor (152). Follows with bindery operator Dr. Joshua Kaplan out of [place]. Follow-up labs including CAMILO, ESR/CRP, and comprehensive [...] Follows with psychiatric provider Clarice Lara with [facility]. Taking clonazepam 0.5 mg once [...] dysfunction. #Hyperkalemia: Patient reports she was at [facility] ED recently at which time her potassium [...] reviewed. Dictation completed with the use of [employer] voice recognition software, prone to medical misidentifications [...] for 11/20/2024. #Recent fall: Patient seen at [facility] ED 11/02/2024 s/p fall at work. Denied [...] diffuse joint pain and fatigue. Follows with bindery operator Dr. Clark out of [place], records requested and not yet available for my review. 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 States this was diagnosed by Dr. Dubon out of [place], [place]. Taking methocarbamol 750 mg 3 times [...] reviewed. Dictation completed with the use of [employer] voice recognition software, prone to medical misidentifications [...] for 11/20/2024. #Recent fall: Patient seen at [facility] ED 11/02/2024 s/p fall at work. Denied [...] diffuse joint pain and fatigue. Follows with bindery operator Dr. Clark out of [place], records requested and not yet available for my review. 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 States this was diagnosed by Dr. Dubon out of [place], [place]. Taking methocarbamol 750 mg 3 times [...] reviewed. Dictation completed with the use of [employer] voice recognition software, prone to medical misidentifications [...] ER follow-up hospital follow-up. María presented to [facility] ED 04/19/2025 with chief complaint of suicidal [...] time. She has since established with therapist Julieta Christian which she feels will be helpful, [...] since undergone surgical correction with thoracic surgeon Jeewl Dubon MD without resolution of pain. While inpatient patient received Tylenol, Dilaudid, and ketorolac for pain management. Not currently taking any pain medication. Previously followed with embossed or impressed lettering painter Dr. Trivedi who provided steroid injections. [...] with added opioid use. WIll refer to embossed or impressed lettering painter with goal of establishing safe pain management regimen. #RA: Follows with Joshua Kaplan MD out of [place]. Discussed possibility of chronic pain being related [...] reviewed. Dictation completed with the use of [employer] voice recognition software, prone to medical misidentifications [...] for 11/20/2024. #Recent fall: Patient seen at [facility] ED 11/02/2024 s/p fall at work. Denied [...] diffuse joint pain and fatigue. Follows with bindery operator Dr. Clark out of [place], records requested and not yet available for my review. 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 States this was diagnosed by Dr. Dubon out of [place], [place]. Taking methocarbamol 750 mg 3 times [...] reviewed. Dictation completed with the use of [employer] voice recognition software, prone to medical misidentifications [...] Previously following with Dr. Dubon out of [place], [place]. Underwent surgical correction RA: +RF - exentsive labs including ESR/CRP, [id number] DNA, C3 and C for complement, anti-Bermeo antibodies, anti-B2 antibodies, anti-Lakisha antibodies, creatinine kinase, and anti-SSA/anti-SSB antibodies WNL. Follows with Eduardo out of [place]. Continue meloxicam 15mg. Anxiety: Follows with psychatiric [employer]URITY SERVICES SPECIALIST Cassidy Quiroz. Continue lorazepam 1mg TID as [...] for 11/20/2024. #Recent fall: Patient seen at [facility] ED 11/02/2024 s/p fall at work. Denied [...] diffuse joint pain and fatigue. Follows with bindery operator Dr. Clark out of [place], records requested and not yet available for my review. 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 States this was diagnosed by Dr. Dubon out of [place], [place]. Taking methocarbamol 750 mg 3 times [...] reviewed. Dictation completed with the use of [employer] voice recognition software, prone to medical misidentifications [...] Tissue Head Neck 02/03/2025 Comp. Metabolic Panel [id number] Anti-Mi-2 Ab (RDL)-[id number] 12/13/2024 Anti-Ro (SS-A) Ab (RDL)-[id number] 5 Anti-La (SS-B) Ab (RDL)-[id number] 5 XR WRIST 3+ VIEWS RIGHT 08/12/2025 CREATINE KINASE AND CKMB 12/13/2024 Insurance Providers Payer Name Payer Address Payer Phone Subscriber Number Group Number Insured Name Patient Relationship to Insured Coverage Start Date Coverage End Date [facility] [address] [address] [place] [address] [id number] María Phillips Self - patient is [...]
--- OUTSIDE RECORDS SUMMARY | 2025-08-12 17:52 | XMS_ITS | Encounter Summary ---
Author Organization [facility] Address [address] [place] [address] Care Team Providers Care Technical Services Assistant Name Role Phone Araceli Augustin Primary Care Provider + Reason for Visit * Reason Onset Date Comments Provider Call Back 07/16/2025 Encounter Details Date Type Department Care Team (Late st Contact Info) Description 07/16/2025 Telephone Gastroenterology - [place] 175 [facility] 175 [facility] [address] [place] [address] Gia Lance, NICOLE 175 [facility] 200 [place] [address] Social History Tobacco Use Types Packs/Day Years [...] documented in this encounter Progress Notes * Gia Lance NP - 07/16/2025 12:39 PM EDT Please advise patient to schedule follow-up appointment to address her concerns. She has been prescribed lactulose for constipation management in addition to MiraLAX. She may take lactulose 30 cc up to 3 times a day. * Mendy Jenny - 07/16/2025 9:31 AM EDT Patient called and stated that she is concerned with her symptoms. She says every time she opens her mouth she has a gurgling and she is burping constantly and she is waking up with constant burning and her throat aches. She also has abdominal pain. She does not know what to do. Please contact and advise. Patient says she is having wrist surgery today so if she can not answer if we try to reach her today to leave her a message please. documented in this encounter Plan of Treatment Upcoming Encounters Date Type Department Care Team (Late st Contact Info) Description 08/14/2025 3:30 PM EDT Office Visit Orthopedic Surgery [facility] 250 175 [facility] 250 [place] [phone] Von Mcclure MD 175 [facility] 250 [place] [address] 09/23/2025 3:45 PM EST Office Visit Orthopedic Surgery [facility] 175 [facility] 140 [place] [phone] Bessy Mesa MD 230 [place] [phone] documented as of this encounter Visit Diagnoses Not on filedocumented in this encounter Care Teams Technical Services Assistant Relationship Specialty Start Date End Date Araceli Augustin PA 299 [facility] 234 [place] [phone] PCP - General 11/20/24 documented as of this encounter
--- OUTSIDE RECORDS SUMMARY | 2025-08-12 17:52 | XMS_ITS | Patient Health Record ---
Author Organization [facility] Address [address] [facility] [address] [place] [address] Care Team Providers Care Emergency Veterinary Assistant Name Role Phone IKER ROBLERO PA-C Primary Care Provider Latonya Ramirez Unavailable [phone] Allergies Allergen (clinical drug ingredient) Drug/Non Drug Allergy documented on EMR Reaction Allergy Type Onset Date Status erythromycin ERYTHROMYCIN Skin Rash Drug Allergy A ctive Results Component Value Reference Range Notes PDF Report Reviewed date:07/03/2025 07:41:07 AM Interpretation: Performing Lab:[facility] [place], [address] [place] [address], Phone - [phone], Director - Elsa Notes/Report: Clinical Information:SRC:UC Urine Culture, Routine-[id number] Reviewed date:07/03/2025 07:42:29 AM Interpretation: Performing Lab:[facility], [address] [place] [address], Phone - [phone], Director - Elsa Notes/Report: Clinical Information:SRC:UC Clinical Information:SRC:UC Urine Culture, Routine Final report Result 1 Mixed urogenital ramone 25,000-50,000 colony forming units per mL Urinalysis, Complete-[id number] Reviewed date:07/03/2025 07:42:16 AM Interpretation: Performing Lab:[facility], [address] [place] [address], Phone - [phone], Director - Elsa Notes/Report: Clinical Information:SRC:UC Clinical Information:SRC:UC Specific Lydia 1.013 1.005-1.030 pH 6.5 5.0-7.5 Urine-Color Yellow [...] seen /lpf Bacteria None seen None seen/Few [id number]-Hgt IGP No Culture 30 Plus Reviewed date:07/17/2025 02:32:32 PM Interpretation: Performing Lab:[facility] [place], [address], [address], [place], Phone - [phone], Director - [facility] Notes/Report: Clinical Information:VAG/CERV [id number] Dates / Results....05/26/2023 ASCUS POS HPV Other..............Post Menopausal No. of containers..01 ThinPrep Vial Clinical Information:VAG/CERV [id number] Dates / Results....05/26/2023 ASCUS POS HPV Other..............Post Menopausal No. of containers..01 ThinPrep Vial DIAGNOSIS: NEGATIVE FOR INTRAEPITHELIAL LESION OR MALIGNANCY. 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 Specimen adequacy: Satisfactory for evaluation. Endocervical and/or squamous metaplastic cells (endocervical component) are present. Clinician provided ICD10: Z01.419 Z11.51 Performed by: Tianna vasquez, Credit Advisor (ASCP) QC reviewed by: Tutu weaver, Credit Advisor (ASCP) . . Note: The Pap smear is [...] Negative Negative HPV Genotype 18,45 Negative Negative Vitamin [id number] Reviewed date:12/14/2024 02:48:01 PM Interpretation: Performing Lab:[facility] [address], Phone - [phone], Director [facility] Notes/Report: Test(s) 232919-Xxt. B1, Whole Blood was developed and its performance characteristics determined by [facility]. It has not been cleared or approved by the Food and Drug Administration. Vitamin B12 424 513-9433 pg/mL Thyroxine (T4) Free, Direct- [id number] Reviewed date:12/14/2024 02:48:28 PM Interpretation: Performing Lab:[facility] [address], Phone - [phone], Director [facility] Notes/Report: Test(s) 024727-Dnd. B1, Whole Blood was developed and its performance characteristics determined by [facility]. It has not been cleared or approved by the Food and Drug Administration. T4,Free(Direct) 1.16 0.82-1.77 ng/dL TSH-[id number] Reviewed date:12/14/2024 02:48:55 PM Interpretation: Performing Lab:[facility] [address], Phone - [phone], [facility] Notes/Report: Test(s) 327084-Jps. B1, Whole Blood was developed and its performance characteristics determined by [facility]. It has not been cleared or approved by the Food and Drug Administration. TSH 0.492 0.450-4.500 uIU/mL Triiodothyronine (T3), Free- 450652 Reviewed date:12/14/2024 02:48:08 PM Interpretation: Performing Lab:[facility] [address], Phone - [phone], Director [facility] Notes/Report: Test(s) 226661-Fur. B1, Whole Blood was developed and its performance characteristics determined by [facility]. It has not been cleared or approved by the Food and Drug Administration. Triiodothyronine (T3), Free 2.9 2.0-4.4 pg/mL Vitamin D, 43-Ayxonxr-[id number] Reviewed date:12/14/2024 02:47:53 PM Interpretation: Performing Lab:[facility] [place], [address] [place] [address], Phone - [phone], Director - Elsa Notes/Report: Test(s) 178194-Zmx. B1, Whole Blood was developed and its performance characteristics determined by [facility]. It has not been cleared or approved by the Food and Drug Administration. Vitamin D, 25-Hydroxy 48.0 30.0-100.0 ng/mL Vitamin D deficiency has been defined by the [place] of [employer] and an Endocrine Society practice guideline as a level of serum 25-OH vitamin D less than 20 ng/mL (1,2). The Endocrine Society went on to further define vitamin D insufficiency as a level between 21 and 29 ng/mL (2). 1. IOM ([place] of [employer]). 2010. Dietary reference intakes for calcium and D. [place]: The National Academies Press. 2. Angelica MF, Leonel CALVO, Sheeba MCKENNA, et al. Evaluation, treatment, and prevention of vitamin D deficiency: an Endocrine Society clinical practice guideline. JCEM. 2010; 96(7):1911-30. Vitamin B1 (Thiamine), Blood -798548 Reviewed date:12/14/2024 02:48:18 PM Interpretation: Performing Lab:[facility] [place], [address] [place] [address], Phone - [phone], Director - Elsa Notes/Report: Test(s) 952083-Fsj. B1, Whole Blood was developed and its performance characteristics determined by [facility]. It has not been cleared or approved by the Food and Drug Administration. Vit. B1, Whole Blood 131.3 66.5-200.0 nmol/L PDF Report Reviewed date:12/14/2024 02:47:46 PM Interpretation: Performing Lab:[facility] [place], [facility], Phone - [phone], Director - Elsa Notes/Report: Test(s) 907640-Fwu. B1, Whole Blood was developed and its performance characteristics determined by [facility]. It has not been cleared or approved by the Food and Drug Administration. Urinalysis Reviewed date:10/14/2024 01:33:35 PM Interpretation: Performing Lab: Notes/Report: PH 8.0 PROTEIN Neg GLUCOSE Neg BLOOD Neg PDF Report Reviewed date:07/10/2025 04:46:44 PM Interpretation: Performing Lab:[facility] [place], [address], [address], [place], Phone - [phone], [facility] Notes/Report: Clinical Information:VAG/CERV [id number] Dates / Results....05/26/2023 ASCUS POS HPV Other..............Post Menopausal No. of containers..01 ThinPrep Vial Reason For Referral No Information Medications Medication SIG (Take, Route, Frequency, Duration) Notes Start Date End Date Status Vitamin C 500 MG as directed Orally Active Escitalopram Oxalate 10 MG Oral; Duration: 30 Days Active Turmeric 500 MG as directed Orally Active Gabapentin 100 MG TAKE 1 CAPSULE BY [facility] 3 TIMES A DAY Oral; [...] test positive, high risk on vaginal specimen (758554326688783) Cervical high risk human papillomavirus (HPV) DNA test positive (R87.810) Active confirmed Problem Postmenopausal atrophic vaginitis (55595276) Postmenopausal atrophic vaginitis (N95.2) Active confirmed Problem Cervicovaginal cytology: Low grade squamous intraepithelial lesion (152911590) Low grade squamous intraepithelial lesion on cytologic smear of cervix (LGSIL) (R87.612) Active confirmed Problem Non-toxic single thyroid nodule (437087707) Nontoxic single thyroid nodule (E04.1) Active confirmed Problem Autoimmune thyroiditis (55312709) Autoimmune thyroiditis (E06.3) Active confirmed Problem Anxiety disorder (503568875) Anxiety disorder, unspecified (F41.9) Active confirmed Problem Epidermal cyst (471808220) Epidermal cyst (L72.0) Active confirmed Problem Rheumatoid arthritis (67733710) Rheumatoid arthritis, unspecified (M06.9) Active confirmed Problem Endometrial intraepithelial neoplasia (666930794) 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) Active confirmed Problem Postcoital bleeding (22598117) Postcoital and contact bleeding (N93.0) Active confirmed Problem Unspecified abnormal finding in specimens from female genital organs (R87.9) Active confirmed Problem Menopause (564333737) Menopausal and female climacteric states (N95.1) Active confirmed Problem Anxiety state (249790974) Anxiety state, unspecified (300.00) Active confirmed Major Vital Signs Temperature 97.3 degrees Fahrenheit 07/03/2025 Blood pressure diastolic 84 mm Hg 07/03/2025 Height 62 in 07/03/2025 Blood pressure systolic 128 mm Hg 07/03/2025 Weight 161 lbs 07/03/2025 BMI 29.44 kg/m2 07/03/2025 Encounters Encounter Location Date Provider Diagnosis [facility] [place] [address] [facility] [address] [place] [address] 12/05/2024 Latonya Lozano [facility] [place] [address] [facility] [address] [place] [address] 02/14/2025 Latonya Lozano [facility] [address] [facility] [address] [place] [address] 03/06/2025 Latonya Lozano [facility] [address] [facility] [address] [place] [address] 10/14/2024 Latonya Lozano Encounter for gynecological examination (general) (routine) without abnormal findings Z01.419 ; Encounter for screening mammogram for malignant neoplasm of breast Z12.31 ; Personal history of other diseases of the female genital tract Z87.42 ; Cervical high risk human papillomavirus (HPV) DNA test positive R87.810 and Postmenopausal atrophic vaginitis N95.[address] [address] 12/09/2024 Latonya Lozano Other fatigue R53.83 and Menopausal and female climacteric states N95.[address] [address] 07/03/2025 Latonya Lozano Lower abdominal pain , unspecified R10.30 ; Atypical squamous cells of undetermined significance on cytologic smear of vagina (ASC-US) R87.620 ; Cervical high risk human papillomavirus (HPV) DNA test positive R87.810 and Encounter for screening for human papillomavirus (HPV) Z11.[address] [address] 12/03/2024 Latonya Lozano [place] [address] [address] 12/12/2024 Latonya Mcgeeva [place] [address] [address] 01/22/2025 Latonya Mcgeeva [address] [address] 02/16/2025 Latonya Lozano [place] [address] [address] 06/30/2025 Latonya Lozano Dysuria R30.0 Assessments Encounter [...] AND NEEDS TESTOSTERONE THERAPY, WILL REFER TO [facility]. WARNED PAT OF POSSIBLE VAGINAL [...] Insured Coverage Start Date Coverage End Date [facility] [address] [address] [place] [address] [id number] MARCUS OLSON Self - patient is the [...]
--- OUTSIDE RECORDS SUMMARY | 2025-08-12 17:52 | XMS_ITS | Encounter Summary ---
Author Organization [facility] Address [address] [place] [address] Care Team Providers Care Roll Former Name Role Phone Araceli Augustin Primary Care Provider + Encounter Details Date Type Department Care Team (Late st Contact Info) Description 08/06/2025 Results Follow-Up Gastroenterology - [place] 175 [facility] 175 [facility] [address] [place] [address] Gia Lance, NICOLE 175 [facility] [address] [place] [address] Social History Tobacco Use Types Packs/Day Years [...] Karin Morton RN documented in this encounter Plan of Treatment Upcoming Encounters Date Type Department Care Team (Late st Contact Info) Description 08/14/2025 3:30 PM EDT Office Visit Orthopedic Surgery [facility] [address] [address] Von Mcclure MD 175 [facility] 250 [place] [address] 09/23/2025 3:45 PM EST Office Visit Orthopedic Surgery [facility] 175 [facility] 140 [place] [phone] Bessy Mesa MD [address] [place] [phone] documented as of this encounter Visit Diagnoses Not on filedocumented in this encounter Care Teams Roll Former Relationship Specialty Start Date End Date Araceli Augustin PA 299 [facility] [address] [place] [address] PCP - General 11/20/24 documented as of this encounter
--- OUTSIDE RECORDS SUMMARY | 2025-08-12 17:52 | XMS_ITS | Patient Health Record ---
Author Organization [facility] Address [address] [facility] [facility] [address] [place] [address] Care Team Providers Care Delivery Mgr Name Role Phone DUDLEYUlices LINDA Primary Care Provider SharifcarlosHugo brumfield Unavailable [phone] Allergies Allergen (clinical drug ingredient) Drug/Non Drug Allergy documented on EMR Reaction Allergy Type Onset Date Status azithromycin Azithromycin Unknown Drug Allergy A ctive clindamycin Clindamycin Unknown Drug Allergy Act aashish Results Component Value Reference Range Notes XR CERVICAL SPINE 4-5 VIEWS Reviewed date:11/21/2024 07:59:09 AM Interpretation: Performing Lab: Notes/Report: Note See Note [facility], a member of [employer] Patient Name: MARÍA OLSON Date of : 1965 Reason for Exam: OTHER Exam Date: 11/18/2024 [id number] EST Report Status: Final Ordering Provider: IKER [...] to the prior neck CTA. Telerad PA ([id number]) -------- FINAL REPOR T -------- Dictated By: Dayami Walker i Dictated Date: 11/19 13:40 ET Assigned Physician: Dayami Diehl Reviewed and Electro nically Signed By: Dayami Diehl Signed Date: 025 13:45 ET Workstation ID: [id number] Transcribed By: Self Edit Transcribed Date: 11/19/2024 13:40 ET Reason For Referral Reason Evaluation and manag ement - Dr New Diagnosis 1 Sprain of ribs, init ial encounter (S23.41XA) Referral Organization [facility] Referring Provider First Name LINDA Referring Provider Last Name [facility] Referring Provider Speciality Internal edicine Referred Provider Specialty Physical Med icine General Notes Referral faxed to [facility] Physical Medicine - Office will call patient for scheduling.Bk Latraya 08/21/2024 04:24:37 PM > Referral Priority Routine Reason Evaluation and manag ement Diagnosis 1 Sprain of ribs, init ial encounter (S23.41XA) Referral Organization [facility] Referring Provider First Name LINDA Referring Provider Last Name [facility] Referring Provider Speciality Internal edicine Referred Provider Specialty Physical Med icine and Rehabilitation General Notes Referral sent to [facility] sarah Physiatry - Office will call patient for scheduling.Bk Latraya 08/27/2024 11:24:16 AM > Referral Priority Routine Reason Evaluation and manag ement Diagnosis 1 Sprain of ribs, init ial encounter (S23.41XA) Referral Organization [facility] Referring Provider First Name LINDA Referring Provider Last Name [facility] Referring Provider Speciality Internal edicine Referred Provider Specialty Pulmonology General Notes Referral sent to [facility] billy Pulmonary - Office will call patient for scheduling.Bk Latraya 08/27/2024 04:11:52 PM > Referral Priority Routine Reason Please evaluate and treat Diagnosis 1 Spondylolisthesis, l umbar region (M43.16) Referral Organization [facility] ter Referring Provider First Name Hugo Referring Provider Last Name Sherlyn Referred Provider Specialty Orthopedic S urgery General Notes Referral faxed to Dr Clive Ross per patient's request at [phone]., Adelita Cerrato 10/03/2024 11:16:33 AM > Referral [...] W/U Status Risk Notes Problem Autoimmune thyroiditis (25658858) Autoimmune thyroiditis (E06.3) Active confirmed Problem Vitamin deficiency (55977983) Vitamin deficiency, unspecified (E56.9) Active confirmed Problem Mixed hyperlipidemia (845401521) Mixed hyperlipidemia (E78.2) Active confirmed Problem Tobacco user (099632900) Nicotine dependence, cigarettes, uncomplicated (F17.210) Active confirmed Problem Generalized anxiety disorder (96396728) Generalized anxiety disorder (F41.1) Active confirmed Problem Chronic sinusitis (11754243) Chronic sinusitis, unspecified (J32.9) Active confirmed Problem Rheumatoid arthritis (19462528) Other rheumatoid arthritis with rheumatoid factor of unspecified site (M05.80) Active confirmed Problem Acquired spondylolisthesis (851844367) Spondylolisthesis , lumbar region (M43.16) Active confirmed Problem Solitary sacroiliitis (142846210) Sacroiliitis, not elsewhere classified (M46.1) Active confirmed Problem Solitary pulmonary nodule (062289596) Solitary pulmonary nodule (R91.1) Active confirmed Vital Signs Heart Rate 75 /min 09/24/2024 Temperature 97.4 degrees Fahrenheit 09/24/2024 Blood pressure diastolic 76 mm Hg 09/24/2024 Oximetry 98 % 09/24/2024 Height 5'4 in 09/24/2024 Blood pressure systolic 130 mm Hg 09/24/2024 Weight 164 lbs 09/24/2024 BMI 28.15 kg/m2 09/24/2024 Encounters Encounter Location Date Provider Diagnosis [address] [address] 08/16/2024 Ghadeer Mazloum Bilateral temporomandibular joint disorder, unspecified M26.603 ; Chronic sinusitis, unspecified J32.9 and Mixed hyperlipidemia E78.[address] [address] 08/21/2024 MCKEON GUL Sprain of ribs, init ial encounter S23.41XA [address] [address] 09/24/2024 Ghadeer Mazloum Intercostal pain R07 .82 and Sacroiliitis, not elsewhere classified M46.1 [facility] [address] [facility] [address] [place] [address] 08/19/2024 [facility] [address] [place] [address] 08/20/2024 [facility] [address] [place] [address] 08/21/2024 MKCEON GU Sprain of ribs, init ial encounter S23.41[facility] [address] [facility] [address] [place] [address] 08/28/2024 [facility] [address] [facility] [address] [place] [address] 09/02/2024 [facility] [address] [place] [address] 09/04/2024 [facility] Left upper quadrant pain R10.12 and Sprain of ribs, initial encounter S23.41[facility] [address] [place] [address] 09/16/2024 MCKEON GUL Left upper quadrant pain R10.[address] [place] [address] 10/31/2024 [facility] [address] [facility] [address] [place] [address] 08/14/2024 [facility] [address] [place] [address] 08/20/2024 [facility] [address] [place] [address] 08/20/2024 [facility] [address] [place] [address] 08/20/2024 Ghadeer Mazloum [facility] [address] [place] [address] 08/22/2024 [facility] [address] [place] [address] 08/22/2024 [facility] GUL [facility] [address] [place] [address] 08/22/2024 [facility] [address] [place] [address] 08/22/2024 [facility] [address] [place] [address] 08/22/2024 [facility] [address] [place] [address] 08/23/2024 [facility] [address] [facility] [address] [place] [address] 08/23/2024 [facility] [address] [place] [address] 08/23/2024 [facility] [address] [place] [address] 08/23/2024 [facility] [address] [place] [address] 08/23/2024 [facility] [address] [place] [address] 08/26/2024 [facility] [address] [facility] [address] [place] [address] 08/26/2024 [facility] [address] [place] [address] 08/27/2024 [facility] [address] [place] [address] 08/27/2024 [facility] [address] [facility] [place] [address] 08/27/2024 [facility]UL [facility] [address] [facility] [place] [address] 08/27/2024 [facility] [address] [facility] [place] [address] 08/28/2024 [facility] [address] [facility] [place] [address] 08/28/2024 [facility] [address] [facility] [address] [place] [address] 08/28/2024 [facility] [address] [facility] [place] [address] 08/28/2024 [facility] [address] [place] [address] 08/28/2024 [facility] [address] [facility] [place] [address] 08/28/2024 [facility] [address] [facility] [address] [facility] [place] [address] 08/28/2024 [facility] [address] [facility] [address] [place] [address] 08/28/2024 [facility] [address] [facility] [place] [address] 08/28/2024 [facility] [address] [facility] [place] [address] 08/28/2024 [facility] [address] [facility] [address] [facility] [place] [address] 08/28/2024 [facility] [address] [facility] [address] [place] [address] 08/30/2024 [facility] [address] [facility] [address] [place] [address] 09/02/2024 [facility] Left upper quadrant pain R10.12 [facility] [address] [place] [address] 09/03/2024 [facility] [address] [place] [address] 09/04/2024 [facility] Vitamin deficiency, unspecified E56.9 [facility] [address] [place] [address] 09/04/2024 [facility] Encounter for screen ing mammogram for malignant neoplasm of breast Z12.31 [facility] [address] [place] [address] 09/05/2024 [facility] [address] [place] [address] 09/06/2024 [facility] [address] [place] [address] 09/09/2024 [facility] [address] [place] [address] 09/11/2024 [facility] [address] [place] [address] 09/17/2024 [facility] [address] [place] [address] 09/17/2024 [facility] [address] [place] [address] 09/17/2024 [facility] [address] [place] [address] 09/18/2024 [facility] [address] [place] [address] 09/19/2024 [facility] [address] [place] [address] 09/19/2024 [facility] [address] [place] [address] 09/25/[address] [place] [address] 09/26/2024 [facility] [address] [place] [address] 09/30/2024 [facility] [address] [place] [address] 10/01/2024 [facility] [place] [address] 10/01/2024 [facility] [address] [place] [address] 10/07/[address] [place] [address] 10/07/[address] [place] [address] 10/10/[address] [place] [address] 10/21/2024 Hugo Sharifloum Rib pain on right si de R07.[address] [place] [address] 10/24/2024 Kaler Sharifloum Assessments Encounter Date Diagnosis (ICD Code) Assessment Notes Treatment Notes Treatment Clinical Notes Section Notes 08/16/2024 Chronic sinusitis, unspecified (ICD-10 - J32.9) [...] Left upper quadrant pain (ICD-10 - R10.12) 09/16/2024 Left upper quadrant pain (ICD-10 - [...] the patient but was available upon request 09/04/2024 Sprain of ribs, initial encounter (ICD-10 - S23.41XA) Plan Of Treatment Pending Test Test Name Order Date CT Scan : M-Facial W/O Contrast 08/16/20 MRI : Abdomen with and without Contrast 09/04/2024 Xray: Chest-Standard Frontal & Lat 08/21 CT Abdomen & Pelvis W Cont 09/16/2024 Insurance Providers Payer Name Payer Address Payer Phone Subscriber Number Group Number Insured Name Patient Relationship to Insured Coverage Start Date Coverage End Date [facility] [address] [address] [place] [address] [phone] [id number] MARÍA OLSON Self - patient is the insured 0 Medical (General) History Medical History History ICD Code TB treated by KUNAL in [facility] RA treated by DR Bang at [facility] disease and see Dr Leonardo generalized anxiety disorder skin sensitivity Surgical History Surgery Date(Month/Year) carpal tunnel strabismus repair Gallbladder removed hernia repair
--- OUTSIDE RECORDS SUMMARY | 2025-08-12 17:52 | XMS_ITS | Encounter Summary ---
Author Organization [facility] Address [address] [place] [address] [place] [address] Phone Care Team Providers Care Planning Division Superintendent Name Role Phone Vee Allan MD Primary Care Pr ovider Encounter Details Date Type Department Care Team (Late st Contact Info) Description 10/08/2020 Ancillary Orders [facility] - Orthopaedics Outpatient Practice [address] [facility], [address] [place] [address] Finn Bone MD [address] [place] [address] [email or web address] Hand joint pain Social History Tobacco [...] hand documented in this encounter Care Teams Planning Division Superintendent Relationship Specialty Start Date End Date Vee Allan MD [address] [place] [address] PCP - General Internal Medicine 09/01/20 documented as of this encounter Additional Source Comments The information contained in this document represents components of the legal health record. It is not the complete legal health record.[facility]
--- OUTSIDE RECORDS SUMMARY | 2025-08-12 17:53 | XMS_ITS | Clinical Summary ---
Author Organization [facility] Address [address] [place] [address] Phone Care Team Providers Care Consumer Affairs Manager Name Role Phone Araceli Augustin Primary Care [...] mouth 1 (one) time each day. Active cholecalciferol (VITAMIN D-3) 25 mcg (1,000 unit) tablet Take 1 tablet (1,000 Units total) by mouth 1 (one) time each day. Active docusate sodium (COLACE) 100 mg capsule if needed. 03/25/20 Active buPROPion XL (WELLBUTRIN XL) 150 mg 24 hr tablet Take 1 tablet (150 mg total) by mouth 1 (one) time each day. Do not crush, chew, or split. Active diazePAM (VALIUM) 5 mg tablet Take 1 tablet (5 mg total) by mouth 2 (two) times a day if needed. 07/10/20 Active cetirizine (ZyrTEC) 10 mg tablet Take 1 tablet (10 mg total) by mouth 1 (one) time each day. Active esomeprazole (NexIUM) [address] capsule Take 1 capsule (40 mg total) by mouth 1 (one) time each day before breakfast. Do not open capsule. 30 each 11 07/28/20 25 026 Active dicyclomine (BENTYL) 20 mg tablet Take 1 tablet (20 mg total) by mouth 4 (four) times a day if needed (Abdominal pain). 120 each 07/28/20 25 025 Active sucralfate (CARAFATE) 1 gram tablet Take 1 tablet (1 g total) by mouth 4 (four) times a day (before meals and nightly). Take 1 hour before meals and at bedtime 120 each 07/28/20 025 Active clonazePAM (KlonoPIN) 0.5 mg tablet Take 1 tablet (0.5 mg total) by mouth 2 (two) times a day if needed. 025 Discontinued cetirizine (ZyrTEC) 10 mg capsule Take 1 capsule (10 mg total) by mouth 1 (one) time each day if needed (allergies) . 025 Discontinued(St op Taking at Discharge) Orencia ClickJect 125 mg/mL injection Inject 1 mL (125 mg total) under the skin 1 (one) time per week. 025 Discontinued nicotine (NICODERM CQ) 21 mg/[address] 1 patch on the skin 1 (one) time each day. 30 each 04/22/20 25 025 Discontinued gabapentin (NEURONTIN) 300 mg capsule Take 1 capsule (300 mg total) by mouth 3 (three) times a day. 04/30/20 25 025 Discontinued LORazepam (ATIVAN) 1 mg tablet Take 1 tablet (1 mg total) by mouth every 6 (six) hours if needed for anxiety. 04/17/20 24 025 Discontinued(St op Taking at Discharge) cloNIDine (CATAPRES) 0.1 mg tablet Take 1 tablet (0.1 mg total) by mouth 2 (two) times a day if needed. 01/07/20 025 Discontinued cyclobenzaprine (FLEXERIL) 10 mg tablet TAKE 1 TABLET BY MOUTH TWICE A DAY NEEDED FOR PAIN FOR 5 DAYS 05/13/20 025 Discontinued estradioL (VIVELLE-DOT) 0.0375 mg/24 hr Transdermal ; Duration: 84 Days 12/09/19 025 Discontinued methylPREDNISolo ne (MEDROL DOSPAK) 4 mg tablet TAKE 6 TABLETS ON DAY 1 DIRECTED ON PACKAGE AND DECREASE BY 1 TAB EACH DAY FOR A TOTAL OF 6 DAYS 04/14/20 025 Discontinued mirtazapine (REMERON) 7.5 mg tablet Take 1 tablet (7.5 mg total) by mouth at bedtime. 01/07/20 025 Discontinued oxyCODONE (ROXICODONE) 5 mg immediate release tablet TAKE 1 TABLET BY MOUTH EVERY 8 HOURS (,,) FOR SEVERE PAIN FOR 7 DAYS. 04/02/20 025 Discontinued(St op Taking at Discharge) Gavilax 17 gram/dose oral powder TAKE 25.5GM ORALLY DAILY FOR 4 DAYS 04/14/20 025 Discontinued traMADoL (ULTRAM) 50 mg tablet 1 tablet as needed for severe pain Orally every 4-6 hours; Duration: 14 days 01/23/20 025 Discontinued venlafaxine HCl (venlafaxine ER) 37.5 mg 24 hr tablet TAKE 1 TABLET BY MOUTH EVERY DAY Oral; Duration: 90 Days 025 Discontinued omeprazole (PriLOSEC) [address] capsule Take 1 capsule (20 mg total) by mouth 1 (one) time each day. Do not crush or chew. 30 each 2 06/09/20 025 Discontinued lactulose (CHRONULAC) solution Take 30 mL (20 g total) by mouth 1 (one) time each day. 2700 mL 06/10/20 025 Discontinued(St op Taking at Discharge) celecoxib (CeleBREX) 200 mg capsule Take 1 capsule (200 mg total) by mouth 2 (two) times a day. 60 each 06/21/20 025 Discontinued oxyCODONE (ROXICODONE) 5 mg immediate release tabletIndication s:Spinal stenosis of lumbar region, unspecified whether neurogenic claudication present Take 1 tablet (5 mg total) by mouth every 6 (six) hours if needed for severe pain. Max Daily Amount: 20 mg 10 tablet 07/08/20 25 025 Discontinued oxyCODONE (ROXICODONE) 5 mg immediate release tablet Take 1 tablet (5 mg total) by mouth every 6 (six) hours if needed for severe pain. 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 Phillips describes increasing issues with her lower back and legs. The lumbar CT from [facility] show degenerative disc disease but not stenosis. Her description of paresthesias and leg shaking raise concerns for stenosis. Her workup at the [facility] ER did not correlate with cauda equina syndrome. She is now awaiting a lumbar spine MRI at [facility]. I be happy to review that once [...] this, is currently seeing 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 [place] at [facility], had injection in the right lower [...] with the patient on the computer. Ms. Phillisp has C5-6 bilateral foraminal stenosis >right C6-7 [...] Other specified anxiety disorders 02/09/2021 Rheumatoid arthritis ([facility] V24, [facility] V28) 12/25/2020 Carpal tunnel syndrome 01/23/2020 Overview [...] Encounters Date Type Department Care Team Description 08/12/2025 3:45 PM EDT Office Visit Orthopedic Surgery [facility] [address] [facility] [address] [place] [phone] Bessy Mesa MD Wrist pain (Primary Dx); Osteochondrosis of lunate of left wrist; Surgery follow-up 08/06/2025 Results Follow-Up Gastroenterology [facility] 175 [facility] 175 [facility] [address] [place] [address] Gia Lance NP 08/05/2025 Telephone Orthopedic Surgery [facility] [address] [phone] Von Mcclure MD 08/04/2025 Telephone Orthopedic Surgery [facility] [address] [phone] Bessy Mesa MD 07/29/2025 3:45 PM EDT Office Visit Orthopedic Surgery [facility] [address] [phone] Bessy Mesa MD Osteochondrosis of lunate of left wrist (Primary Dx); Surgery follow-up 07/29/2025 Telephone Orthopedic [facility] [address] [phone] Von Mcclure MD 07/28/2025 2:40 PM EDT Office Visit Gastroenterology [facility] [address] [address] Gia Lance NP Erosive gastropathy (Primary Dx); Abdominal pain, chronic, right upper quadrant; History of Helicobacter pylori infection; Esophageal dysmotility; Tobacco use disorder 07/24/2025 8:40 AM EDT Consult Endocrinology [address] [phone] Marian Turner MD Hypothyroidism (acquired) (Primary Dx); Hyperthyroidism 07/24/2025 Telephone Orthopedic Surgery [address] [phone] Bessy Mesa MD 07/23/2025 3:30 PM EDT Office Visit Orthopedic Surgery [facility] [address] [facility] [address] [place] [phone] Nichelle Archibald PA Surgery follow-up (Primary Dx) 07/23/2025 Telephone Orthopedic Surgery [facility] [address] [facility] [address] [place] [phone] Jacquelyn Sow 07/16/2025 1:10 PM EDT Anesthesia Event [facility] [place] [address] [place] [address] Magda Siegel MD Chang, Ling, CRNA 07/16/2025 12:30 PM EDT - 07/16/2025 2:[address] [facility] [place] [address] [place] [address] Bessy Mesa MD core decompression right distal radius [86890 (CPT )] 07/16/2025 10:33 AM EDT - 07/16/2025 4:05 PM EDT Hospital Encounter 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 Xray [address] [place] [address] Pain Discharge Disposition: Home or Self Care 07/16/2025 Telephone Gastroenterology [facility] [address] [facility] [address] [place] [address] Gia Lance NP 07/15/2025 Telephone Orthopedic Surgery [facility] 250 [address] [facility] [address] [place] [address] Bessy Mesa MD 07/08/2025 6:02 PM EDT - 07/08/2025 10:[address] [facility] Emergency [address] [place] [phone] Jalil Steven MD Goebel, Mathew, MD Spinal stenosis of lumbar region, unspecified whether neurogenic claudication present (Primary Dx) Discharge Disposition: Home or Self Care 07/08/2025 3:15 PM EDT Consult Orthopedic Surgery [facility] [address] [phone] Bessy Mesa MD Osteochondrosis of lunate of left wrist (Primary Dx) 06/26/2025 Telephone Orthopedic [facility] [address] [phone] Siria Palumbo 06/25/2025 8:30 AM EDT Ancillary Procedure [facility] [address] [place] [address] Dyspnea on exertion 06/25/2025 Telephone Orthopedic Surgery [facility] [address] [address] Bessy Mesa MD 06/20/2025 8:00 AM EDT Office Visit Orthopedic Surgery [facility] [address] [address] Bessy Mesa MD Osteochondrosis of lunate of left wrist (Primary Dx) 06/20/2025 Telephone Orthopedic Surgery [facility] [address] [address] Bessy Mesa MD 06/19/2025 Telephone Gastroenterology [facility] 175 [facility] [address] [address] Gia Lance NP 06/11/2025 Telephone Orthopedic Surgery [facility] [address] [address] Nichelle Archibald PA 06/06/2025 Telephone Gastroenterology - [place] 175 [facility] [address] [address] Gia Lance NP 06/05/2025 11:56 AM EDT Anesthesia Event [facility] Endoscopy [address] [place] [phone] Jewel Wilcox MD 06/05/2025 10:21 AM EDT - 06/05/2025 11:59 PM EDT Hospital Encounter [facility] Endoscopy [address] [place] [phone] Melba Bunn MD Steele, Matthew G, CRNA Zorn, Jamie M, MD Diarrhea, unspecified type; Change in bowel habits Discharge Disposition: Home or Self Care 06/05/2025 Telephone Orthopedic Surgery [facility] 250 [address] [facility] [address] [place] [phone] Nichelle Archibald PA 06/04/2025 1:45 PM EDT Office Visit Orthopedic Surgery [facility] [address] [facility] [address] [place] [phone] Nichelle Archibald PA Arthritis of right wrist (Primary Dx) 05/28/2025 4:11 PM EDT - 05/28/2025 11:59 PM EDT Hospital Encounter [facility] CT Scan [address] [place] [phone] Solitary pulmonary nodule Discharge Disposition: Home or Self Care 05/26/2025 Telephone Gastroenterology [facility] 175 [facility] 175 [facility] [address] [place] [address] Gia Lance NP 05/19/2025 Telephone Gastroenterology - [place] 175 [facility] [address] [address] Gia Lance NP 05/15/2025 11:52 AM EDT - 05/15/2025 1:[address] [facility] Emergency [address] [place] [phone] Stephanie Nina DO Bacterial infection due to H. pylori (Primary Dx) Discharge Disposition: Home or Self Care 05/15/2025 9:05 AM EDT - 05/15/2025 11:59 PM EDT Hospital Encounter [facility] Nuclear Medicine [address] [place] [phone] Abdominal pain, chronic, right upper quadrant Discharge Disposition: Home or Self Care 05/15/2025 Telephone Gastroenterology - [place] [address] [facility] [address] [address] Gia Lance, NICOLE 05/14/2025 11:51 AM EDT - 05/14/2025 11:59 PM EDT Hospital Encounter [facility] Xray [address] [place] [address] Rheumatoid arthritis with rheumatoid factor of multiple sites without organ or systems involvement (CMS/HCC V24, CMS/HCC V28) Discharge Disposition: Home or Self Care 05/14/2025 Telephone Gastroenterology - [place] [address] [facility] [address] [address] Gia Lance, NICOLE 05/13/2025 Telephone Gastroenterology - [place] [address] [facility] [address] [place] [address] Gia Lance NP 05/12/2025 Telephone Gastroenterology - [place] [address] [facility] [address] [address] Gia Lance, NICOLE 05/12/2025 Telephone Gastroenterology - [place] [address] [phone] Gia Lance, NICOLE from Last 3 Months Immunizations Immunization Administration Dates Next Due Hepatitis B ([id number]-Wwflv , Recombivax HB-Adult) 19yo and older 02/21/2022,01/17/2022 [...] tissue CARPAL TUNNEL RELEASE 01/20/2020 Right PROCEDURE: GA NEUROPLASTY &/TRANSPOS MEDIAN NRV CARPAL TUNNE COLONOSCOPY OTHER SURGICAL HISTORY 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 [facility] WRIST SURGERY 11/06/2021 - 11/05/2022 Left scapholunate stablization VENTRAL HERNIA REPAIR 03/25/2025 revision, mesh removed CHOLECYSTECTOMY HAND SURGERY 07/16/2025 Right Right distal radius core decompression for [place] Medical History Medical History Date Comments Anxiety [...] 0.5 48.8 Started: 1974 Smokeless Tobacco: Never Tobacco Cessation:Ready [...] Sign Reading Time Taken Comments Blood Pressure 118/88 07/28/2025 2:50 PM EDT Pulse 71 07/28/2025 2:50 PM EDT Temperature 36.1 C (97 F) 07/24/2025 8:53 AM EDT Respiratory Rate 16 07/16/2025 3:17 PM EDT Oxygen Saturation 99% 07/28/2025 2:50 PM EDT Inhaled Oxygen Concentration - - Weight 72.6 kg (160 lb) 07/29/2025 3:36 PM EDT Height 162.6 cm (5' 4 ) 07/29/2025 3:36 PM EDT Body Mass Index 27.46 07/29/2025 3:36 PM EDT Plan of Treatment Upcoming Encounters Date Type Department Care Team (Late st Contact Info) Description 08/14/2025 3:30 PM EDT Office Visit Orthopedic Surgery - [place] [address] [phone] Von Mcclure MD 175 [facility] [address] [place] [address] 09/23/2025 3:45 PM EST Office Visit Orthopedic Surgery - [address] [place] [address] Bessy Mesa MD Formerly named [facility] [place] [address] Health Maintenance Due Date Last Done Comments Zoster Vaccines (1 of 2) 1986 Hepatitis B Vaccines (3 of 3 - 19+ 3-dose series) 07/20/2022 02/21/2022, 01/17/2022 Lung Cancer Screening (Low Dose CT) 10/09/2022 Depression Screening 11/06/2024 COVID-19 Vaccine ( season) 2025 02/02/2022, 07/05/2021, 06/24/2021, Additional history exists Influenza Vaccine (#1) 2025 , 07/28/2023, 09/19/2022, Additional history exists Social Influencers of Health Screening 04/20/2026 04/20/2025 Breast Cancer Screening 02/05/2027 02/06/20 25, 06/05/2023, 02/27/2019, Additional history exists Cervical Cancer Screening: HPV 07/20/2028 07/20/2023 DTaP,Tdap,and Td Vaccines (3 - Td or Tdap) 01/09/2029 01/09/2019, 06/01/2015 Cholesterol Screening (Lipid Panel) 10/28/2029 10/28/2024, 11/09/2023 Colorectal Cancer Screening: Colonoscopy 06/05/2032 06/05/2025, 08/15/2023 RSV Immunization Adult Patients (1 - 1-dose 75+ series) 2042 HIV Screening Completed 05/20/2024 Hepatitis C Screening Completed 05/20/2024, 024 Pneumococcal Vaccine: 50+ Years Completed 11/21/2024 HIB Vaccines Aged Out No [...] Name Priority Date/Time Associated Diagnosis Comments XR WRIST 3+ VIEWS RIGHT Routine 08/12/2025 3:56 PM EDT Wrist pain HELICOBACTER PYLORI ANTIGEN, STOOL Routine 07/30/2025 9:58 AM EDT Helicobacter pylori infection THYROXINE FREE Routine 07/24/2025 9:32 AM EDT Hyperthyroidism TRIIODOTHYRONINE FREE Routine 07/24/2025 9:32 AM EDT Hyperthyroidism THYROID STIMULATING IMMUNOGLOBULIN Routine 07/24/2025 9:32 AM EDT Hyperthyroidism THYROID STIMULATING HORMONE WITH REFLEX TO FREE T4 AND FREE T3 Routine 07/24/2025 9:32 AM EDT Pretibial myxedema TISSUE EXAM Routine 07/16/2025 1:50 PM EDT 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 (CMS/HCC V24, CMS/HCC V28) CULTURE ANAEROBIC WITH GRAM STAIN Routine 07/16/2025 1:40 PM EDT 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 (CMS/HCC V24, CMS/HCC V28) CULTURE WOUND DEEP Routine 07/16/2025 1:40 PM EDT 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 (CMS/HCC V24, CMS/HCC V28) TH AN LMA(NO CHARGE) Routine 07/16/2025 1:23 PM EDT GA OSTEOTOMY RADIUS DISTAL THIRD 07/16/2025 1:09 PM EDT 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 (CMS/HCC V24, CMS/HCC V28) Case Notes Mini C-arm, stretcher Special Needs Dr Mesa says she can do this in 60 min No authorization required MR LUMBAR SPINE WO CONTRAST STAT 07/08/2025 8:29 PM EDT CBC WITH AUTO DIFFERENTIAL STAT 07/08/2025 7:06 PM EDT LIPASE STAT 07/08/2025 7:06 PM EDT COMPREHENSIVE METABOLIC PANEL STAT 07/08/2025 7:06 PM EDT CBC AND DIFFERENTIAL STAT 07/08/2025 7:06 PM EDT TRANSTHORACIC ECHOCARDIOGRAM (TTE) COMPLETE Routine 06/25/2025 9:10 [...] quadrant XR WRIST 3+ VIEWS RIGHT Routine 05/14/2025 12:16 PM EDT Rheumatoid arthritis with rheumatoid factor of multiple sites without organ or systems involvement (CMS/HCC V24, CMS/HCC V28) XR HAND 3+ VIEWS RIGHT Routine 12:16 PM EDT Rheumatoid arthritis with rheumatoid factor of multiple sites without organ or systems involvement (CMS/HCC V24, CMS/HCC V28) MG MAMMO DIGITAL SCREENING W SG BILAT Routine 02/05/2025 10:40 AM EDT Encounter for screening mammogram for malignant neoplasm of breast LIPID PANEL WITH REFLEX TO DIRECT LDL Routine 10/28/2024 2:36 PM EST Atrophic arthritis (CMS/HCC V24, CMS/HCC V28) Routine general medical examination at a [facility] care facility Screening for lipoid disorders Screening for diabetes mellitus Screening for thyroid disorder Avitaminosis D HEPATITIS C SCREENING Routine 05/20/2024 HIV SCREENING Routine 05/20/2024 HPV Routine 07/20/2023 from Last 3 Months or Most Recently Relevant to Health Maintenance Results * XR Wrist 3+ Views Right (08/12/2025 3:56 PM EDT) Only the most recent of2 resultswithin the time period is included. Anatomical Region Laterality Modality Upper Extremities, Wrist [...] MD IMG XR PROCEDURES Final Resul t * Helicobacter pylori antigen, stool (07/30/2025 9:58 AM EDT) Helicobacter Pylori Ag Not detected Not detected 08/05/2025 2:52 PM EDT [facility] Comment: This test was performed at [facility] using a chemiluminescent immunoassay intended for [...] Food and Drug Administration. Test performed at [facility], [address] , [place], [place] [id number] Krystina Austin MD, PhD - [employer] Stool Rectum structure / Unknown Non-blood Collection / Unknown 07/30/2025 9:58 AM EDT 07/30/2025 9:58 AM EDT Gia Lance NP LAB BODY FLUIDS AND STOOLS ROD ESCALANTE Final Result [facility] [address] [place] [address] * Thyroid stimulating hormone with reflex to free t4 and free t3 (07/24/2025 9:32 AM EDT) TSH 1.20 0.40 - 4.00 mcIU/mL LAB CHEMISTRY METHOD 07/24/2025 12:39 PM EDT [facility] Blood Venous blood specimen / Unknown Venipuncture / Unknown 07/24/2025 9:32 AM EDT 07/24/2025 9:32 AM EDT Marian Turner MD LAB BLOOD ORDERABLES Final Res ult [facility] [address] [place] [address], [place] [phone] * Thyroid stimulating immunoglobulin (07/24/2025 9:32 AM EDT) [facility] Thyroid Stimulating Immunoglobulin <0.10 <0.10 IU/L 07/28/2025 7:54 PM EDT [facility] Comment: Thyroid stimulating immunoglobulins (TSI) concentrations greater than or equal to (>=) 0.55 IU/L have a clinical sensitivity of at least 98.6%, and a clinical specificity of at least 98.5%, for the differential diagnosis of Graves' Disease. TSI concentrations for patients with other thyroid or autoimmune diseases range from 0.11 to 0.39 IU/L. Test performed at [facility], [address] , [place] [address] Krystina Austin MD, PhD - [employer] Blood Venous blood specimen / Unknown Venipuncture / Unknown 07/24/2025 9:32 AM EDT 07/24/2025 9:32 AM EDT Marian Turner MD LAB BLOOD ORDERABLES Final Res ult [facility] [address] [place] [address] * Triiodothyronine free (07/24/2025 9:32 AM EDT) T3, Free 316 230 - 420 pcg/dL LAB CHEMISTRY METHOD 07/24/2025 12:38 PM EDT [facility] Blood Venous blood specimen / Unknown Venipuncture / Unknown 07/24/2025 9:32 AM EDT 07/24/2025 9:32 AM EDT Marian Turner MD LAB BLOOD ORDERABLES Final Res ult Performing Organization Address [facility]/ZIP Co de Phone Number [facility] [address] [place] [address], [place] [phone] * Thyroxine free (07/24/2025 9:32 AM EDT) Free T4 1.16 0.70 - 1.80 ng/dL LAB CHEMISTRY METHOD 07/24/2025 12:38 PM EDT [facility] Blood Venous blood specimen / Unknown Venipuncture / Unknown 07/24/2025 9:32 AM EDT 07/24/2025 9:32 AM EDT Marian Turner MD LAB BLOOD ORDERABLES Final Res ult Performing Organization Address [facility] de Phone Number [facility] [address] [place] [address], [place] [phone] * Tissue exam (07/16/2025 1:50 PM EDT) Only the most recent of2 resultswithin the time period is included. Final Diagnosis Bone, Right, Distal Radius-decomp ression: -FRAGMENTS OF TRABECULAR BONE WITH NO SPECIFIC PATHOLOGIC CHANGE 07/18/2025 12:03 PM EDT [facility] Comment Intact specimen with articular cartilage is preferred specimen for evaluating avascular necrosis. 07/18/2025 12:03 PM EDT [facility] Gross Description A. Wrist, Right, Distal Radius: Labeled right dis wrist R . Received in formalin is a 1.4 x 0.8 x 0.2 cm aggregate of hard, rocha-red bone fragments which are wrapped in paper and submitted in toto in one cassette, multiple pieces, following decalcificati on. TS 07/18/2025 12:03 PM EDT [facility] Disclaimer Unless otherwise specified, all tissue is 10% NB formalin fixed and paraffin embedded. 07/18/2025 12:03 PM EDT [facility] Bone Structure of right wrist region / Unknown 07/16/2025 1:50 PM EDT 07/16/2025 3:19 PM EDT Bessy Mesa MD LAB PATHOLOGY ORDERABLES Nataliia vasquez Result [facility] [address] [place] [address], * (ABNORMAL) Culture anaerobic with gram stain (07/16/2025 1:40 PM EDT) Culture, Anaerobic No Growth of Anaerobes. 07/24/2025 8:51 AM EDT [facility] Culture, Anaerobic Staphylococcus warneri(A) ABBEY 07/24/2025 8:51 AM EDT [facility] Comment: SPARSE Beta-lactamase negative The organism value for this result has been updated. These results have been appended to the previously preliminary verified report. Edited result: Previously reported as Gram Positive Cocci on 07/20/2025 at 0832 EDT. Culture, Anaerobic Streptococcus viridans group(A) ABBEY 07/24/2025 8:51 AM EDT [facility] Comment: SPARSE Susceptibility testing not routinely performed. If further therapeutic information is required, please consult an infectious disease specialist. The organism value for this result has been updated. These results have been appended to the previously preliminary verified report. This is an edited result. Previous organism was Gram Positive Cocci on 07/20/2025 at 0832 EDT. Culture, Anaerobic Bacillus species,not anthracis(A) ABBEY 07/24/2025 8:51 AM EDT [facility] Comment: SPARSE The organism value for this result has been updated. These results have been appended to the previously preliminary verified report. Gram Stain Result Refer to Aerobic culture for gram stain results. 07/24/2025 8:51 AM EDT [facility] Swab Structure of right wrist region / Unknown 07/16/2025 1:40 PM EDT 07/16/2025 2:37 PM EDT Narrative Organism Antibiotic Method Susceptibility Staphylococcus warneri Benzylpenicillin ABBEY Susceptible Comment:This is an a ppended report. These results have been appended to a previously preliminary verified report. Staphylococcus warneri Oxacillin ABBEY <=0.25 ug/ml: Susceptible Staphylococcus warneri Gentamicin ABBEY <=0.5 ug/ml: Susceptible Staphylococcus warneri Ciprofloxacin ABBEY <=0.5 ug/ml: Susceptible Staphylococcus warneri Levofloxacin ABBEY <=0.12 ug/ml: Susceptible Staphylococcus warneri Erythromycin ABBEY >=8 ug/ml: Resistant Staphylococcus warneri Clindamycin ABBEY <=0.25 ug/ml: Susceptible Staphylococcus warneri Vancomycin ABBEY 1 ug/ml: Susceptible Staphylococcus warneri Tetracycline ABBEY <=1 ug/ml: Susceptible Staphylococcus warneri Rifampin ABBEY <=0.5 ug/ml: Susceptible Bessy Mesa MD LAB MICROBIOLOGY - GENERAL OR DERABLES Final Result [facility] [address] [place] [address], * Culture wound deep (07/16/2025 1:40 PM EDT) Culture, Wound No growth at 3 days 07/19/2025 10:14 AM EDT [facility] Gram Stain Result No polymorphonuclear leukocytes, No epithelial cells, and No organisms noted 07/19/2025 10:14 AM EDT [facility] Swab Structure of right wrist region / Unknown 07/16/2025 1:40 PM EDT 07/16/2025 2:37 PM EDT Bessy Mesa MD LAB MICROBIOLOGY - GENERAL OR DERABLES Final Result [facility] [address] [place] [address], [place] [phone] * TH AN LMA(NO CHARGE) (07/16/2025 1:23 PM EDT) Narrative Venice Trivedi CRNA - 07/16/2025 1:23 PM EDT Venice Trivedi CRNA 07/16/2025 1:24 PM General Information and Staff Patient location during procedure: OR Performed by: Venice Trivedi CRNA Authorized by: Magda Siegel MD Intubation Airway not difficult Urgency: elective Final Airway Details Number of attempts at approach: 1 Ventilation between attempts: none Number of other approaches attempted: 0 LMA Size: 4 LMA Type: Classic LMA Seal Pressure: Final airway type: LMA Indications and Patient Condition Indications for airway management: anesthesia and airway protection Spontaneous ventilation: present Sedation level: Yes Preoxygenated: yes Soft Tissue Damage: No Dentition Unchanged: Yes Patient position: neutral MILS not maintained throughout Mask difficulty assessment: 0 - not attempted Start Time: 07/16/2025 1:14 PMStop Time: 07/16/2025 1:14 PM Magda Siegel MD ANESTHESIA ORDERABLES Fin al Result * MR Lumbar Spine wo Contrast (07/08/2025 8:29 PM EDT) Anatomical Region Laterality Modality L-spine, Spine Magnetic Resonan ce 07/08/2025 9:13 PM EDT Impressions 07/08/2025 9:13 PM EDT 1. Multilevel degenerative changes of the lumbar spine as described contributing to mild multifocal spinal canal stenosis T12-L1 through L4-L5, and sefm-tu-sxjftark bilateral L4-L5 neural foraminal stenosis. 2. Unremarkable appearance of the conus medullaris and cauda equina. This document has been electronically signed by: James Sheth MD on 07/08/2025 21:13:43 Narrative 07/08/2025 9:13 PM EDT INDICATION: Low back pain, cauda equina syndrome suspected MR lumbar spine without gadolinium Comparison: CT - CT CHEST/ABDOMEN/PELVIS WO CONTRAST - 12/05/24 17:52 EST Findings: Normal alignment. Vertebral body heights are preserved. Degenerative disc and endplate changes throughout the lumbar spine. Otherwise normal bone marrow signal. Moderate multilevel facet arthrosis throughout the lumbar spine. Disc osteophyte complexes throughout the lumbar spine, contributing to mild multifocal spinal canal stenosis from T12-L1 through L4-L5. Ctyj-eq-mctfxvtm bilateral L4-L5 neural foraminal stenosis. Unremarkable appearance of the conus medullaris and cauda equina. Paraspinous musculature intact. Procedure Note James Sheth - 07/08/2025 INDICATION: Low back pain, cauda equina syndrome suspected MR lumbar spine without gadolinium Comparison: CT - CT CHEST/ABDOMEN/PELVIS WO CONTRAST - 12/05/24 17:52 EST Findings: Normal alignment. Vertebral body heights are preserved. Degenerative disc and endplate changes throughout the lumbar spine. Otherwise normal bone marrowsignal. Moderate multilevel facet arthrosis throughout the lumbar spine. Disc osteophyte complexes throughout the lumbar spine, contributing to mild multifocal spinal canal stenosis from T12-L1 through L4-L5. Daag-ap-lqohrcvk bilateral L4-L5 neural foraminal stenosis. Unremarkable appearance of the conus medullaris and cauda equina. Paraspinous musculature intact. IMPRESSION: 1. Multilevel degenerative changes of the lumbar spine as described contributing to mild multifocal spinal canal stenosis T12-L1 through L4-L5, and abws-hj-ylcellpb bilateral L4-L5 neural foraminal stenosis. 2. Unremarkable appearance of the conus medullaris and cauda equina. This document has been electronically signed by: James Sheth MD on 07/08/2025 21:13:43 Jalil Steven MD [facility] MRI PROCEDURES Final Result * (ABNORMAL) CBC auto differential (07/08/2025 7:06 PM EDT) Only the most recent of2 resultswithin the time period is included. WBC 7.5 4.8 - 10.8 K/[facility] LAB HEMETOLOGY METHOD 07/08/2025 7:22 PM EDT [facility] RBC 4.20 3.80 - 4.80 M/mcL LAB HEMETOLOGY [facility] Hemoglobin 13.8 11.5 - 16.0 g/dL LAB HEMETOLOGY METHOD 07/08/2025 7[facility] Hematocrit 40.7 35.0 - 47.0 % LAB HEMETOLOGY METHOD 07/08/2025 7:[facility] MCV 97.4 79.0 - 98.0 FL LAB HEMETOLOGY METHOD 07/08/2025 7:22 PM [facility] MCH 33.0(H) 27.0 - 32.0 pcg LAB HEMETOLOGY METHOD 07/08/2025 7:22 PM [facility] MCHC 33.9 32.0 - 37.0 g/dL LAB HEMETOLOGY METHOD 07/08/2025 7:22 PM [facility] RDW 12.7 11.0 - 15.0 % LAB HEMETOLOGY METHOD 07/08/2025 7:22 PM [facility] Platelets 311 130 - 400 K/mcL LAB HEMETOLOGY METHOD 07/08/2025 7:22 PM [facility] MPV 9.3 7.0 - 11.0 FL LAB HEMETOLOGY METHOD 07/08/2025 7:[facility] NRBC 0.0 <1.0 % LAB HEMETOLOGY METHOD 07/08/2025 7:[facility] NRBC Absolute 0.00 <0.10 K/mcL LAB HEMETOLOGY METHOD 07/08/2025 7:22 PM [facility] Neutrophils Relative 49.3 % LAB HEMETOLOGY METHOD 07/08/2025 7:22 PM [facility] Lymphocytes Relative 39.4 % LAB HEMETOLOGY METHOD 07/08/2025 7:22 PM [facility] Monocytes Relative 7.6 % LAB HEMETOLOGY METHOD 07/08/2025 7:22 PM [facility] Eosinophils Relative 2.9 % LAB HEMETOLOGY METHOD 07/08/2025 7:22 PM [facility] Basophils Relative 0.5 % LAB HEMETOLOGY METHOD 07/08/2025 7:22 PM [facility] Immature Granulocytes Relative 0.3 % LAB HEMETOLOGY METHOD 07/08/2025 7:22 PM [facility] Neutrophils Absolute 3.68 1.50 - 7.00 K/mcL LAB HEMETOLOGY METHOD 07/08/2025 7:22 PM [facility] Lymphocytes Absolute 2.94 1.00 - 5.00 K/mcL LAB HEMETOLOGY METHOD 07/08/2025 7:22 PM [facility] Monocytes Absolute 0.57 0.20 - 1.00 K/mcL LAB HEMETOLOGY METHOD 07/08/2025 7:22 PM [facility] Eosinophils Absolute 0.22 0.00 - 0.50 K/mcL LAB HEMETOLOGY METHOD 07/08/2025 7:22 PM [facility] Basophils Absolute 0.04 0.00 - 0.20 K/mcL LAB HEMETOLOGY METHOD 07/08/2025 7:22 PM [facility] Immature Granulocytes Absolute 0.02 0.00 - 0.03 K/mcL LAB HEMETOLOGY METHOD 07/08/2025 7:22 PM [facility] Blood Venous blood specimen / Unknown Venipuncture / Unknown 07/08/2025 7:06 PM EDT 07/08/2025 7:15 PM EDT Juan F Doshi MD LAB BLOOD ORDERABLES Final Result Performing Organization Address City/[facility]/ZIP Co de Phone Number [facility] [address] [place] [address], [place] [phone] * Lipase (07/08/2025 7:06 PM EDT) Lipase 19 13 - 75 unit/L LAB CHEMISTRY METHOD 07/08/2025 7:54 PM EDT [facility] Blood Venous blood specimen / Unknown Venipuncture / Unknown 07/08/2025 7:06 PM EDT 07/08/2025 7:15 PM EDT Juan F Doshi MD LAB BLOOD ORDERABLES Final Result Performing Organization Address [facility]/ZIP Co de Phone Number [facility] [address] [place] [address], [place] [phone] * Comprehensive metabolic panel (07/08/2025 7:06 PM EDT) Only the most recent of2 resultswithin the time period is included. Pathologist [facility] Sodium 140 133 - 145 mmol/L LAB CHEMISTRY METHOD 07/08/2025 7:54 PM EDT [facility] Potassium 4.1 3.5 - 5.5 mmol/L LAB CHEMISTRY METHOD 07/08/2025 7:54 PM EDT [facility] Chloride 104 96 - 110 mmol/L LAB CHEMISTRY METHOD 07/08/2025 7:54 PM T [facility] CO2 29 21 - 32 mmol/L LAB CHEMISTRY METHOD 07/08/2025 7:54 PM EDT [facility] Anion Gap 7 3 - 11 LAB CHEMISTRY METHOD 07/08/2025 7:54 PM EDT [facility] Glucose 81 70 - 100 mg/dL LAB CHEMISTRY METHOD 07/08/2025 7:54 PM EDT [facility] BUN 8 5 - 25 mg/dL LAB CHEMISTRY METHOD 07/08/2025 7:54 PM [facility] Creatinine 0.81 0.50 - 1.10 mg/dL LAB CHEMISTRY METHOD 07/08/2025 7:54 PM [facility] eGFR 84 >=60 mL/min/1. 73m2 LAB CHEMISTRY METHOD 07/08/2025 7:54 PM [facility] Comment:Calculation based on the Chronic Kidney Disease Epidemiology Collaboration (CKD-EPI) equation refit without adjustment for race. BUN/Creatinine Ratio 9.9 LAB CHEMISTRY METHOD 07/08/2025 7:54 PM [facility] Calcium 9.8 8.5 - 10.5 mg/dL LAB CHEMISTRY METHOD 07/08/2025 7:54 PM [facility] AST (SGOT) 23 10 - 42 unit/L LAB CHEMISTRY METHOD 07/08/2025 7:54 PM [facility] ALT (SGPT) 29 10 - 60 unit/L LAB CHEMISTRY METHOD 07/08/2025 7:54 PM [facility] Alkaline Phosphatase 102 42 - 121 unit/L LAB CHEMISTRY METHOD 07/08/2025 7:54 PM [facility] Total Protein 6.8 6.0 - 8.0 g/dL LAB CHEMISTRY METHOD 07/08/2025 7:54 PM [facility] Albumin 4.0 3.2 - 5.0 g/dL LAB CHEMISTRY METHOD 07/08/2025 7:54 PM [facility] Total Bilirubin 0.5 0.0 - 1.4 mg/dL LAB CHEMISTRY METHOD 07/08/2025 7:54 PM [facility] Blood Venous blood specimen / Unknown Venipuncture / Unknown 07/08/2025 7:06 PM EDT 07/08/2025 7:15 PM EDT Juan F Doshi MD LAB BLOOD ORDERABLES Final Result [facility] [address] [facility] [place] [address], [place] [phone] * (ABNORMAL) TRANSTHORACIC ECHOCARDIOGRAM (TTE) COMPLETE (06/25/2025 9:10 AM EDT) Left Atrium Minor Melrude 4.9 cm CV PACS Left Atrium Major Melrude 4.9 cm CV PACS LA Area Sys [...] Volume 57 mL CV PACS MV Deceleration Monona 4.1 m/s2 CV PACS E Wave Deceleration [...] Final Result * COLONOSCOPY Anesthesia - MAC; [facility] ENDOSCOPY (06/05/2025 12:23 PM EDT) Anatomical Region [...] previously scheduled. Narrative 06/05/2025 12:[address] [facility] Patient Name: María Phillips Procedure Date: [...] verified by the physician, the nurse, the chief reservoir engineering and the downstream biomanufacturing technician in the pre-procedure area in the [...] not prolapse). Procedure Code(s): --- Professional --- 00228, Colonoscopy, flexible; with biopsy, single or multiple Diagnosis Code(s): --- Professional --- R19.7, Diarrhea, unspecified CPT copyright 2020 [employer]. All rights reserved. The codes documented in this report are preliminary and upon machine filler review may be revised to meet current compliance requirements. Melba Bunn MD 06/05/2025 12:27:19 PM This report has been signed electronically.Melba Bunn MD Number of Addenda: 0 Note Initiated On: 06/05/2025 11:57 AM Scope Withdrawal Time: 0 hours 6 minutes 22 seconds Scope In: 12:10:33 PM Scope Out: 12:23:27 PM Endoscopy Department at [address] [phone] Procedure Note Melba Bunn MD - 06/05/2025 [facility] GI Patient Name: María Phillips Procedure Date: [...] the physician, the nurse, theanesthetist and the downstream biomanufacturing technician in the pre-procedure area in the [...] not prolapse). Procedure Code(s): --- Professional --- 19402, Colonoscopy, flexible; with biopsy, singleor multiple Diagnosis Code(s): --- Professional --- R19.7, Diarrhea, unspecified CPT copyright 2020 [employer]. All rights reserved. The codes documented in this report are preliminary and upon machine filler reviewmay be revised to meet current compliance requirements. Melba Bunn MD 06/05/2025 12:27:19 PM This report has been signed electronically.Melba Bunn MD Number of Addenda: 0 Note Initiated On: 06/05/2025 11:57 AM Scope Withdrawal Time: 0 hours 6 minutes 22 seconds Scope In: 12:10:33 PM Scope Out: 12:23:27 PM Endoscopy Department at [facility] - [address] [place] [phone] IMPRESSION: - The examined portion of the ileum was normal. - Dilated in the ascending colon and in thececum. - Normal mucosa in the entire examined colon.Biopsied. - Diverticulosis in the sigmoid colon. - Internal hemorrhoids. Recommendation: - Await pathology results. - Repeat colonoscopy in 7-10 years forsurveillance. - Return to GI clinic as previously scheduled. us Melba Bunn MD GI~PROCEDURE ORDERABLES Fin al Result * CT Chest wo Contrast (05/28/2025 4:27 PM EDT) Anatomical Region Laterality Modality Body Computed Tomogra phy 06/02/2025 9:00 AM EDT Impressions 06/02/2025 9:13 AM EDT Impression: 1. Stable subcentimeter pulmonary nodules being followed, reassuring for a benign process. One-year follow-up recommended. 2. No developing thoracic lymphadenopathy. Telerad PA ([id number]) -------- FINAL REPORT -------- Dictated By: Dayami Diehl Dictated Date: 06/02/2025 09:00 ET Assigned Physician: Dayami Diehl Reviewed and Electronically Signed By: Dayami Diehl Signed Date: 06/02/2025 09:13 ET Workstation ID: [id number] Transcribed By: Self Edit Transcribed Date: 06/02/2025 09:00 ET Narrative 06/02/2025 9:13 AM EDT History: Pulmonary nodule follow-up. Comparison: 12/05/24 Technique: Helical volumetric imaging of the thorax was performed without IV contrast. DLP: 279.09 mGy/cm ampriceer Iterative reconstruction technique Findings: The trachea and [...] was performed withoutIV contrast. DLP: 279.09 mGy/cm Drop Development Iterative reconstruction technique Findings: The trachea and [...] 2. No developing thoracic lymphadenopathy. Telerad PA ([id number]) -------- FINAL REPORT -------- Dictated By: Dayami Diehl Dictated Date: 06/02/2025 09:00 ET Assigned Physician: Dayami Diehl Reviewed and Electronically Signed By: Dayami Diehl Signed Date: 06/02/2025 09:13 ET Workstation ID: [id number] Transcribed By: Self Edit Transcribed Date: 06/02/2025 09:00 ET Araceli [facility] IMG CT PROCEDURES Final Result * XR Ribs w Chest 3+ Views Right (05/15/2025 12:13 PM EDT) Anatomical Region Laterality Modality Body Right Radiographic Krystyna ging 05/15/2025 12:1 5 PM EDT Impressions 05/15/2025 12:17 PM EDT Impression: 1. No right rib fracture identified. 2. No active pulmonary process. Telerad TL ([id number]) -------- FINAL REPORT -------- Dictated By: Dayami Diehl Dictated Date: 05/15/2025 12:15 ET Assigned Physician: Dayami Diehl Reviewed and Electronically Signed By: Dayami Diehl Signed Date: 05/15/2025 12:17 ET Workstation ID: [id number] Transcribed By: Self Edit Transcribed Date: 05/15/2025 [...] identified. 2. No active pulmonary process. Telerad TL ([id number]) -------- FINAL REPORT -------- Dictated By: Dayami Diehl Dictated Date: 05/15/2025 12:15 ET Assigned Physician: Dayami Diehl Reviewed and Electronically Signed By: Dayami Diehl Signed Date: 05/15/2025 12:17 ET Workstation ID: [id number] Transcribed By: Self Edit Transcribed Date: 05/15/2025 12:15 ET us Jose Marmolejo MD IMG XR PROCEDURES Final Result * Type and screen (05/15/2025 11:51 AM EDT) ABO Group O 05/15/2025 1:07 PM EDT [facility] Rh Type Positive 05/15/2025 1:07 PM EDT [facility] Antibody Screen Negative 05/15/2025 1:07 PM EDT [facility] Blood Venous blood specimen / Unknown Venipuncture / Unknown 05/15/2025 11:51 AM EDT 05/15/2025 12:00 PM EDT us Stephanie Nina DO LAB BLOOD BANK TEST ORDER KAILASH Final Result [facility] [address] [place] [address], [place] [phone] * NM Hepatobiliary System Imaging (05/15/2025 10:53 AM EDT) Anatomical Region Laterality Modality Body Nuclear Medicine 05/15/2025 11:4 6 AM EDT Impressions 05/15/2025 11:48 AM EDT Impression: Normal hepatobiliary scintigraphy status post cholecystectomy. Telerad TL ([id number]) -------- FINAL REPORT -------- Dictated By: Dayami Diehl Dictated Date: 05/15/2025 11:46 ET Assigned Physician: Dayami Diehl Reviewed and Electronically Signed By: Dayami Diehl Signed Date: 05/15/2025 11:48 ET Workstation ID: [id number] Transcribed By: Self Edit Transcribed Date: 05/15/2025 [...] hepatobiliary scintigraphy status post cholecystectomy. Telerad TL ([id number]) -------- FINAL REPORT -------- Dictated By: Dayami Diehl Dictated Date: 05/15/2025 11:46 ET Assigned Physician: Dayami Diehl Reviewed and Electronically Signed By: Dayami Diehl Signed Date: 05/15/2025 11:48 ET Workstation ID: [id number] Transcribed By: Self Edit Transcribed Date: 05/15/2025 11:46 ET Gia Natalio LIVESTOCK INSPECTOR IMG NM PROCEDURES Final Result * XR [...] osteoarthritis of the first carpal-metacarpal articulation. Code 58168, 43958 -------- FINAL REPORT -------- Dictated By: Mauro Wright Dictated Date: 05/15/2025 07:41 ET Assigned Physician: Mauro Wright Reviewed and Electronically Signed By: Mauro Wright Signed Date: 05/15/2025 07:44 ET Workstation ID: [id number] Transcribed By: Self Edit Transcribed Date: 05/15/2025 [...] moderate osteoarthritis of the first carpal-metacarpalarticulation. Code 98694, 01640 -------- FINAL REPORT -------- Dictated By: Mauro Wright Dictated Date: 05/15/2025 07:41 ET Assigned Physician: Mauro Wright Reviewed and Electronically Signed By: Mauro Wright Signed Date: 05/15/2025 07:44 ET Workstation ID: [id number] Transcribed By: Self Edit Transcribed Date: 05/15/2025 07:41 ET us Joshua Castellanos MD IMG XR PROCEDURES Final Result * MG Mammo Digital Screening w Sg bilat (02/05/2025 10:40 AM EDT) Anatomical Region Laterality Modality Breast Bilateral Mammography 02/06/2025 9:43 AM EDT Impressions 02/06/2025 9:45 AM EDT No evidence of breast malignancy. BI-RADS CATEGORY: 1 - NEGATIVE RECOMMENDATION: Screening bilateral mammogram is recommended in 1 year. Mammo Location: [facility], [address] [place] [address], [id number], . -------- FINAL REPORT -------- Dictated By: Stefani Zamora Dictated Date: 02/06/2025 09:43 ET Assigned Physician: Stefani Zamora Reviewed and Electronically Signed By: Stefani Zamora Signed Date: 02/06/2025 09:45 ET Workstation ID: [id number] Transcribed By: Self Edit Transcribed Date: 02/06/2025 [...] Mammo Location: [facility], [address] [place] [address], [facility], . -------- FINAL REPORT -------- Dictated By: Stefani Zamora Dictated Date: 02/06/2025 09:43 ET Assigned Physician: Stefani Zamora Reviewed and Electronically Signed By: Stefani Zamora Signed Date: 02/06/2025 09:45 ET Workstation ID: [id number] Transcribed By: Self Edit Transcribed Date: 02/06/2025 09:43 ET Araceli [facility] BI PROCEDURES Final Result * Lipid panel with reflex to direct LDL (10/28/2024 2:36 PM EST) Cholesterol 196 0 - 200 mg/dL LAB CHEMISTRY METHOD 10/28/2024 4:17 PM EST [facility] Triglycerides 51 0 - 150 mg/dL LAB CHEMISTRY METHOD 10/28/2024 4:17 PM EST [facility] HDL 111 >=40 mg/dL LAB CHEMISTRY METHOD 10/28/2024 4:17 PM EST [facility] LDL Calculated 75 0 - 100 mg/dL LAB CHEMISTRY METHOD 10/28/2024 4:17 PM [facility] VLDL Cholesterol Corby 10.2 mg/dL LAB CHEMISTRY METHOD 10/28/2024 4:17 PM EST [facility] Non HDL Chol. (LDL+VLDL) 85 <145 mg/dL LAB CHEMISTRY METHOD 10/28/2024 4:17 PM [facility] Chol/HDL Ratio 1.8 0.0 - 4.4 LAB CHEMISTRY METHOD 10/28/2024 4:17 PM [facility] Blood Venous blood specimen / Unknown Venipuncture / Unknown 10/28/2024 2:36 PM EST 10/28/2024 3:06 PM EST Araceli [facility] LAB BLOOD ORDERABLES Fin al Result [facility] [address] [place] [address], * HIV Screening (05/20/2024) [facility] HIV Screening abstracted Historical Provider HEALTH MAINTENANCE Final Result * Hepatitis C Screening (05/20/2024) [facility] Hepatitis C Screening abstracted Historical Provider HEALTH MAINTENANCE Final Result * Cervical Cancer Screening: HPV (07/20/2023) [facility] Cervical Cancer Screening: HPV no interpreta tion,abstr acted Historical Provider HEALTH MAINTENANCE Final Result from Last 3 Months or Most Recently Relevant to Health Maintenance Insurance [facility] Advance Directives * Full Code - Default (Latest Code Status on File) Date Activated Date Inactivated Comments 07/16/2025 10:43 AM 07/16/2025 6:15 PM This is ord er is used when code status has not been discussed with the patient, or code status is otherwise unknown/unconfirmed To update the patient's code status, place a code status order. Do not modify or discontinue any currently active code status orders. * Full Code - Default Date Activated Date Inactivated Comments 04/19/2025 8:09 [...] currently active code status orders. Care Teams Consumer Affairs Manager Relationship Specialty Start Date End Date Araceli Augustin PA [address] [place] [phone] PCP - General 11/20/24
== END 2025-08-12 15:30 | disposition home or self-care (01) ==
LOC: HO.RHES 14:32
PROVIDERS: Visit Provider Internal Medicine Rheumatology
DX: M25.561 Pain in right knee (principal); M25.562 Pain in left knee
CPT/HCPCS: 99214; G2211

== ENCOUNTER 2025-08-21 13:50 | Outpatient (AMB) | payer OTHER, SELFPAY ==
--- OUTSIDE RECORDS SUMMARY | 2024-08-06 08:23 | XMS_ITS | Encounter Summary ---
Author Organization [facility] Address [address] [place] [address] Care Team Providers Care Medicine Assistant Name Role Phone Unavailable Primary Care Provider Unavailabl e Encounter Details Date Type Department Care Team (Late st Contact Info) Description 08/06/2024 8:23 AM EDT Hospital Encounter TH HISTORIC ENCOUNTERS EASTERN CONVERSION ONLY Tutu Trivedi MD [address] [place] [address] Social History Tobacco Use Types Packs/Day Years [...] 4:01 PM EDT Karin Vera RN * [place] Suicide Severity Rating Scale (Screener/Recent Self-Report) Question [...] Info) Description 08/28/2025 1:30 PM EDT Treatment [facility] Occupational Therapy 175 [facility] [address] [place] [address] Nichelle Milian OT 09/23/2025 3:45 PM EST Office Visit Orthopedic Surgery - [place] 175 [facility] [address] [place] [address] Bessy Mesa MD [address] [place] [phone] documented as of this encounter Goals Goal Patient Goal Type Associated Problems Recent Progress Patient-Stated? Author OT 6-8 visits General No Nichelle Milian OT Note: 1> Indep HEP (splint weaning, ROM, pain manage, eventual strength) 2. Dominant R digital ad trafficker strength at least 35# (vs 20initial, vs [...]
--- OUTSIDE RECORDS SUMMARY | 2024-11-04 09:00 | XMS_ITS ---
Author Organization [facility] Address [address] [place] [address] Care Team Providers Care Blocker Automatic Name Role Phone IKER ROBLERO PA-C Primary Care Provider Latonya Ramirez Unavailable [phone] Allergies Allergen (clinical drug ingredient) Drug/Non Drug Allergy documented on EMR Reaction Allergy Type Onset Date Status erythromycin ERYTHROMYCIN Skin Rash Drug Allergy A ctive REASON FOR VISIT PAP AFTER PREMARIN USE Encounters Encounter Location Date Provider Diagnosis [address] [address] 11/04/2024 Latonya Lozano Plan Of Treatment No Information Progress Notes * DAWSON OLSONMOONOB:1965 (60 yo F)Acc No.[id number]:11/04/2024 PROGRESS NOTES Patient: MARCUS RODRIGUEZ Appointment Provider: Shannon Lozano M.D. :1965 A ge:59 Y S ex:Female Date:11/04/2024 Address:[address] [place], [place] [phone] Pcp:IKER ROBLERO PA-C Subjective: * Chief Complaints: [...] on cytologic smear of cervix (ASC-US). 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 S exual activity n ot currently sexually active. L ast Pap Smear: ASCUS, POS HRHPV (Neg 16, 18/45), 03/28/22 LGSIL, POS HRHPV (neg 16, 18/45), 11/21/17 NEG HRHPV, 2011. M ammogram: < 50% density, 02/27/19 < 50% density, 07/26/2017 normal, 07/2016 with follow up Lt Diagnostic 07/09/2016 Bx recommended. A bnormal Pap Smear: [place] Negative, 06/06/22 [place] Negative, 03/2022 LGSIL, + HRHPV. L MP [...] Electronic signature of Pato Lozano MD on 08/21/2025 at 05:38 PM EDT Sign off status: Pending * Appointment Provider: Shannon Lozano M.D. Date: Generated for Renay bear/Hilton/Lambertoitting on: 05:38 PM EDT
--- OUTSIDE RECORDS SUMMARY | 2024-12-05 06:40 | XMS_ITS ---
Author Organization [facility] Address [address] [place] [address] Care Team Providers Care Curbstone Setter Name Role Phone IKER ROBLERO PA-C Primary Care Provider Latonya Ramirez Unavailable [phone] Allergies Allergen (clinical drug ingredient) Drug/Non Drug [...] 6-10 Encounters Encounter Location Date Provider Diagnosis [address] [address] 12/05/2024 Latonya Lozano Plan Of Treatment No Information Progress Notes * MIS OLSONOB:1965 (60 yo F)Acc No.[id number]:12/05/2024 PROGRESS NOTES Patient: MARCUS RODRIGUEZ Appointment Provider: Shannon Lozano M.D. :1965 A ge:59 Y S ex:Female Date:12/05/2024 Address:[address] [place] [address] Pcp:IKER ROBLERO PA-C Subjective: * Chief Complaints: [...] on cytologic smear of cervix (ASC-US). 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 S exual activity n ot currently sexually active. L ast Pap Smear: ASCUS, POS HRHPV (Neg 16, 18/45), 03/28/22 LGSIL, POS HRHPV (neg 16, 18/45), 11/21/17 NEG HRHPV, 2011. M ammogram: < 50% density, 02/27/19 < 50% density, 07/26/2017 normal, 07/2016 with follow up Lt Diagnostic 07/09/2016 Bx recommended. A bnormal Pap Smear: [place] Negative, 06/06/22 [place] Negative, 03/2022 LGSIL, + HRHPV. L MP [...] of Pato Lozano MD on 08/21/2025 at 05:36 PM EDT Sign off status: Pending * Appointment Provider: Shannon Lozano M.D. Date: 0 12/05/2024 Generated for Renay bear/Hilton/Shaquille on: 05:36 PM EDT
--- OUTSIDE RECORDS SUMMARY | 2025-02-14 07:00 | XMS_ITS ---
Author Organization [facility] Address [address] [place] [address] Care Team Providers Care Cell Biology Scientist Name Role Phone IKER ROBLERO PA-C Primary Care Provider Unav Latonya Panda Unavailable [phone] REASON FOR VISIT ULTRA - CK OVARIES ? DERMOID ON RT ADNEXA ON X RAY Encounters Encounter Location Date Provider Diagnosis [facility] [employer] [address] 02/14/2025 Latonya Lozano Plan Of Treatment No Information Progress Notes * DAWSON OLSONMOONOB:1965 (60 yo F)Acc No.[id number]:02/14/2025 PROGRESS NOTES Patient: MARCUS RODRIGUEZ Appointment Provider: Shannon Lozano M.D. :1965 A ge:59 Y S ex:Female Date:02/14/2025 Address:[address] [place], [place] [phone] Pcp:IKER ROBLERO PA-C Subjective: * Chief Complaints: [...] 02/14/2025 Generated for Renay bear/Hilton/eTransmitting on: 1 05:36 PM EDT
--- OUTSIDE RECORDS SUMMARY | 2025-03-03 09:10 | XMS_ITS ---
Author Organization [facility] Address [address] [place] [address] Care Team Providers Care Third Mate Name Role Phone IKER ROBLERO PA-C Primary Care Provider Latonya Ramirez Unavailable [phone] Allergies Allergen (clinical drug ingredient) Drug/Non Drug [...] Active Encounters Encounter Location Date Provider Diagnosis [address] [address] 03/03/2025 Latonya Lozano Plan Of Treatment No Information Progress Notes * MIS OLSONOB:1965 (60 yo F)Acc No.[id number]:03/03/2025 Patient: Bhavna DIORMARCUS Appointment Provider: Shannon Lozano M.D. :1965 A ge:59 Y S ex:Female Date:03/03/2025 Address:[address] [place] [address] Pcp:IKER ROBLERO PA-C Subjective: * Chief Complaints: [...] on cytologic smear of cervix (ASC-US). * Funeral Professional History: G ravida/ Para 2 /2. S exual activity n ot currently sexually active. L ast Pap Smear: ASCUS, POS HRHPV (Neg 16, 18/45), 03/28/22 LGSIL, POS HRHPV (neg 16, 18/45), 11/21/17 NEG HRHPV, 2011. M ammogram: < 50% density, 02/27/19 < 50% density, 07/26/2017 normal, 07/2016 with follow up Lt Diagnostic 07/09/2016 Bx recommended. A bnormal Pap Smear: [place] Negative, 06/06/22 [place] Negative, 03/2022 LGSIL, + HRHPV. L MP [...] of Pato Lozano MD on 08/21/2025 at 05:37 PM EDT Sign off status: Pending * Appointment Provider: Shannon Lozano M.D. Date: 0 03/03/2025 Generated for Renay bear/Hilton/Shaquille on: 1 05:37 PM EDT
--- OUTSIDE RECORDS SUMMARY | 2025-03-06 06:00 | XMS_ITS ---
Author Organization [facility] Address [address] [facility] [address] [place] [address] Care Team Providers Care Phosphorus Processing Supervisor Name Role Phone IKER ROBLERO PA-C Primary Care Provider Latonya Ramirez Unavailable [phone] Allergies Allergen (clinical drug ingredient) Drug/Non Drug [...] Gabapentin 100 MG TAKE 1 CAPSULE BY [facility] 3 TIMES A DAY Oral; Duration: [...] 6-10 Encounters Encounter Location Date Provider Diagnosis [address] [place] [address] 03/06/2025 Latonya Lozano Plan Of Treatment No Information Progress Notes * DAWSON OLSONENDOB:1965 (60 yo F)Acc No.[id number]:03/06/2025 Patient: MARCUS RODIRGUEZ Appointment Provider: Shannon Lozano M.D. :1965 A ge:59 Y S ex:Female Date:03/06/2025 Address:[address] [place], [place] [phone] Pcp:IKER ROBLERO PA-C Subjective: * Chief Complaints: [...] on cytologic smear of cervix (ASC-US). * Electronic Court Recorder History: G ravida/ Para 2 /2. S exual activity n ot currently sexually active. L ast Pap Smear: ASCUS, POS HRHPV (Neg 16, 18/45), 03/28/22 LGSIL, POS HRHPV (neg 16, 18/45), 11/21/17 NEG HRHPV, 2011. M ammogram: Breast Tissue is Almost Entirely Fatty, , 02/27/19 < 50% density, 07/26/2017 normal, 07/2016 with follow up Lt Diagnostic 07/09/2016 Bx recommended. A bnormal Pap Smear: [place] Negative, 06/06/22 [place] Negative, 03/2022 LGSIL, + HRHPV. L MP [...] of Pato Lozano MD on 08/21/2025 at 05:39 PM EDT Sign off status: Pending * Appointment Provider: Shannon Lozano M.D. Date: 0 03/06/2025 Generated for Renay bear/Hilton/Lambertoitting on: 1 05:39 PM EDT
--- OUTSIDE RECORDS SUMMARY | 2025-05-06 10:45 | XMS_ITS ---
Author Organization [facility] Address [address] [place] [address] Care Team Providers Care Concrete Vault Maker Name Role Phone IKER ROBLERO Unavailable [phone] Sneha Holden Unavailable [phone] REASON FOR VISIT red and purple dots on her skin and muscle weakness for two days. Encounters Encounter Location Date Provider Diagnosis [facility] [address] [place] [address] [place] [address] 05/06/2025 Sneha Holden Plan Of Treatment No Information Progress Notes * Brdaley OLSONTayeOB:1965 (60 yo F)Acc No.[id number]:05/06/2025 Progress Notes Patient: María RODRIGUEZ Provider: Felton Holden PA-C :1965 A ge:59 Y S ex:Female Date:05/06/2025 Address:[address] [facility] Subjective: * Chief Complaints: * 1 . Red and purple dots on her skin and muscle weakness for two days.. * Medical History: Objective: * Vitals: Assessment: Plan: * Treatment: Care Plan: * Problems: * Images: Billing Information: * Visit Code: * Procedure Codes: Care Plan Details* * Electronic signature of Cher Holden PA-C on 08/21/2025 at 05:35 PM EDT Sign off status: Pending * Provider: Felton Holden PA-C Date: 0 05/06/2025 Generated for Printi ng/Fahollandg/eTransmitting on: 1 05:35 PM EDT
--- OUTSIDE RECORDS SUMMARY | 2025-07-29 15:45 | XMS_ITS | Encounter Summary ---
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 Answer Date of Assessment Author No 07/08/2025 4:01 PM EDT Karin Morton RN * Are you blind or do you have serious difficulty seeing, even when wearing glasses? Answer Date of Assessment Author No 07/08/2025 4:01 PM EDT Karin Morton RN * Do you have serious difficulty walking or climbing stairs? Answer Date of Assessment Author No 07/08/2025 4:01 PM EDT Karin Morton RN * Do you have serious difficulty dressing or bathing? Answer Date of Assessment Author No 07/08/2025 4:01 PM EDT Karin Morton RN * Because of a physical, mental, or emotional condition, do you have serious difficulty doing errandsalone such as visiting the doctor? Answer Date of Assessment Author No 07/08/2025 4:01 PM EDT Karin Morton RN documented as of this encounter Mental Status * Because of a physical, mental, or emotional condition, do you have serious difficulty concentrating, remembering, or making decisions? 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 She describes some burning along the volar surface of the wrist and forearm. She does note that her range of motion seemsbetter. Objective: On exam the incision dorsally is intact with some dry scab. There is no worrisome cellulitic changes around it. Patient is able to flex and extend her fingers and thumb and make a full fist. She is able to flex the wrist going nearly 35 degrees in flexion and extension. She has a littlebit of tenderness dorsally over the radius and the carpus. Assessment: 1. Osteochondrosis of lunate of right wrist 2. Surgery follow-up Plan: Continue gentle range of motion of the wrist. Avoid any heavy lifting pushing or pulling. Check her back in 2 weeks for an x-ray. We talked a little bit about transitioning back to work once things are feeling a bit better. Follow-up: Follow-up in 2 weeks with x-rays 3 views of the right wrist Bessy Mesa MD documented in this encounter Plan of Treatment Upcoming Encounters Date Type Department Care Team (Late st Contact Info) Description 08/28/2025 1:30 PM EDT Treatment [facility] Occupational Therapy [address] [facility] [address] [place] [address] Nichelle Milian OT 09/23/2025 3:45 PM EST Office Visit Orthopedic Surgery - [place] [address] [facility] [address] [place] [address] Bessy Mesa MD [address] [place] [phone] documented as of this encounter Goals Goal Patient Goal Type Associated Problems Recent Progress Patient-Stated? Author OT 6-8 visits General No Nichelle Milian, OT Note: 1> Indep HEP (splint weaning, ROM, pain manage, eventual strength) 2. Dominant R senior etl developer strength at least 35# (vs 20initial, vs 47 L hand) 3. R wrist ext AROM at least 55 w/ tolerance for weightbearing during sit to stand 4. R wrist flex AROM at least 45 5. Reported tolerance for home manage/work duties of mod resistance not exceed 2/10 pain documented as of this encounter Visit Diagnoses Diagnosis Osteochondrosis of lunate of right wrist- Primary Surgery follow-up documented in this encounter Care Teams Airport Operations Coordinator Relationship Specialty Start Date End Date Araceli Augustin PA [address] [place] [phone] PCP - General 11/20/24 documented as of this encounter
--- OUTSIDE RECORDS SUMMARY | 2025-08-12 15:45 | XMS_ITS | Encounter Summary ---
Author Organization [facility] Address [address] [place] [address] Care Team Providers Care Supervisor Printing Shop Name Role Phone Araceli Augustin Primary Care Provider + Reason for Referral * Therapy (Routine) - Authorized Specialty Diagnoses / Procedures Referred By Corine strange Referred To Contact Occupational Therapy Diagnoses Osteochondrosis of lunate of left wrist Surgery follow-up Bessy Mesa MD [address] [place] [address] Phone: tel: fax: Referral ID Status Reason Start Date Expiration Date Visits Requested Visits Authorized [id number] Authorized Consult and Treat 08/12/2025 08/12/2026 6 6 Reason for Visit * Reason Comments Post-op Surgery follow up fo r core decompression of distal radius on 07/16/25 Encounter Details Date Type Department Care Team (Late st Contact Info) Description 08/12/2025 3:45 PM EDT Office Visit Orthopedic Surgery - [place] [address] [facility] [address] [place] [address] Bessy Mesa MD [address] [place] [phone] Wrist pain (Primary Dx); Osteochondrosis of lunate of right wrist; Surgery follow-up Social History Tobacco Use Types [...] Progress Notes * Bessy Mesa MD - 08/12/2025 3:45 PM EDT * Bessy Mesa MD - 08/12/2025 3:45 PM EDT Orthopedic/Hand Surgery Follow-up Visit 08/21/25 REASON FOR VISIT: Patient here today for follow-up of core decompression of the right distal radius date of surgery was 07/16/2025. Patient is doing okay. She still has some pain in the wrist. She notes some burning along the volar surface of the wrist and forearm. She has been getting some skin irritation she states all over her body . She does find that just pressing the wrist down in extension and putting her palm flat and stretching and putting pressure down seems to actually help the wrist. She does note some pain along the thumb axis. PHYSICAL EXAM: The scar dorsally is healed in nicely. She is actually not particular tender over the distal radius. She has some mild tenderness over the proximal carpal row. She has a little discomfort at the basal joint but no julieta crepitance. She can extend the wrist to 30 flex to 45 XR Knee 4+ Views bilat 4 views weightbearing of bilateral knees obtained today reviewed including AP, Gomez, lateral, sunrise. Left knee x-rays show mild to moderate degenerative changes involving the medial and lateral compartments including partial joint space narrowing, small marginal osteophytes, subchondral sclerosis, more moderate degenerative change involving patellofemoral compartment. Loose body within the intercondylar notch. Evidence of prior tibial tunnel and lateral Endobutton about the distal lateral femur. No significant effusion. Neutral alignment. Degenerative changes have not progressed from prior x-rays obtained 01/22/2025. Right knee x-rays show mild degenerative changes of the medial, lateral, patellofemoral compartments including partial joint space narrowing, small marginal space, subchondral sclerosis. No significant effusion. Neutral alignment. Degenerative changes have not progressed from prior x-rays obtained 01/22/2025. ASSESSMENT/PLAN: Encounter Diagnoses Name Primary? Wrist pain Yes Osteochondrosis of lunate of right wrist Surgery follow-up Patient will continue work on range of motion and strengthening. She may use ice packs or heat on the wrist as needed. We will send to therapy for some instruction on stretching and strengthening She will return in 6 to 8 weeks Updated work note was provided Bessy Mesa MD documented in this encounter Plan of Treatment Upcoming Encounters Date Type Department Care Team (Late st Contact Info) Description 08/28/2025 1:30 PM EDT Treatment [facility] Occupational Therapy [address] [facility] [address] [place] [address] Nichelle Milian OT 09/23/2025 3:45 PM EST Office Visit Orthopedic Surgery - [place] [address] [facility] [address] [place] [phone] Bessy Mesa MD [address] [place] [phone] Scheduled Referrals Name Type Priority Associated Diagnoses Order Schedule Ambulatory referral to Occupational Therapy Outpatient Referral Routine Osteochondrosis of lunate of right wrist Surgery follow-up 1 Occurrences starting 08/12/2025 until 08/12/2026 documented as of this encounter Goals Goal Patient Goal Type Associated Problems Recent Progress Patient-Stated? Author OT 6-8 visits General No Nichelle Milian, OT Note: 1> Indep HEP (splint weaning, ROM, pain manage, eventual strength) 2. Dominant R hoop machine operator strength at least 35# (vs 20initial, vs 47 L hand) 3. R wrist ext AROM at least 55 w/ tolerance for weightbearing during sit to stand 4. R wrist flex AROM at least 45 5. Reported tolerance for home manage/work duties of mod resistance not exceed 2/10 pain documented as of this encounter Results * XR Wrist 3+ Views Right (08/12/2025 3:56 PM EDT) Anatomical Region Laterality Modality Upper Extremities, Wrist Right Compute d Radiography Narrative 08/12/2025 5:27 PM EDT AP, lateral, oblique of the right wrist was obtained on 08/12/2025. There is notable osteopenic bone. Carpal alignment on the lateral is maintained. There is collapse and sclerosis of the lunate. There is associated flexion of the scaphoid. There are no obvious fractures. Soft tissue envelope appears within normal limits. Impression: Advanced avascular necrosis of the lunate Bessy Mesa MD IMG XR PROCEDURES Final Resul t documented in this encounter Visit Diagnoses Diagnosis Wrist pain- Primary Pain in joint, forearm Osteochondrosis of lunate of right wrist Surgery follow-up documented in this encounter Care Teams Supervisor Printing Shop Relationship Specialty Start Date End Date Araceli Augustin PA [address] [place] [phone] PCP - General 11/20/24 documented as of this encounter
--- OUTSIDE RECORDS SUMMARY | 2025-08-19 09:46 | XMS_ITS ---
Author Organization [facility] Address [address] [place] [address] Care Team Providers Care Fret Saw Operator Name Role Phone IKER ROBLERO PA-C Primary Care Provider Malacarol Mirella Pandali Unavailable [phone] Results Component Value Reference Range Notes HBsAg Screen-[id number] Reviewed date:08/21/2025 07:50:52 AM Interpretation: Performing Lab:[facility], [address], [address], [place], Phone - [phone], Director - MDMoore Notes/Report: Clinical Information:SRC:UR HBsAg Screen Negative Negative HIV Ab/p24 Ag with Reflex-08 [id number] Reviewed date:08/21/2025 07:51:19 AM Interpretation: Performing Lab:[facility], [address], [address], [place], Phone - [phone], Director - MDMoore Notes/Report: Clinical Information:SRC:UR HIV Ab/p24 Ag Screen Non Reactive Non Reactive HIV-1/HIV-2 antibodies and HIV-1 p24 antigen were NOT detected. There is no laboratory evidence of HIV infection. HIV Negative M genitalium AZEB, Urine-1800 25 Reviewed date:08/21/2025 07:50:59 AM Interpretation: Performing Lab:[facility], [address], [address], [place], Phone - [phone], Director - MDMoore Notes/Report: Clinical Information:SRC:UR Mycoplasma genitalium AZEB Negative Negative HCV Antibody-[id number] Reviewed date:08/21/2025 07:51:12 AM Interpretation: Performing Lab:[facility], [address], [address], [place], Phone - [phone], Director - MDMoore Notes/Report: Clinical Information:SRC:UR Hep C Virus Ab Non Reactive Non Reactive HCV antibody alone does not differentiate between previously resolved infection and active infection. Equivocal and Reactive HCV antibody results should be followed up with an HCV RNA test to support the diagnosis of active HCV infection. PDF Report Reviewed date:08/21/2025 07:50:23 AM Interpretation: Performing Lab:[facility] [place], [address], [address], [place], Phone - [phone], Director - MDMterrie Notes/Report: Clinical Information:SRC:UR Syphilis RPR w/reflex Reviewed date:08/21/2025 07:51:06 AM Interpretation: Performing Lab:[facility] [place], [address], [address], [place], Phone - [phone], Director - MDMxiomara Notes/Report: Clinical Information:SRC:UR RPR Non Reactive Non Reactive REASON FOR VISIT STD TESTING Encounters Encounter Location Date Provider Diagnosis [address] [place] [address] 08/19/2025 Latonya Lozano High risk heterosexual behavior Z72.51 Assessments Encounter Date Diagnosis (ICD Code) Assessment Notes Treatment Notes Treatment Clinical Notes Section Notes 08/19/2025 High risk heterosexual behavior (ICD-10 - Z72.51) Plan Of Treatment Pending Test Test Name Order Date Chlamydia/GC Amplification-[id number] 2024 Progress Notes * MIS OLSONOB:1965 (60 yo F)Acc No.[id number]:08/19/2025 Patient: MARCUS RODRIGUEZ :1965 A ge:60 Y S ex:Female Address:[address] [place] [address], [phone] Subjective: * Chief Complaints: * S TD TESTING * Medical History: * Surgical History: * Hospitalization/Major Diagno stic Procedure: * Medications: Objective: * Vitals: * Physical Examination: Assessment: * Assessment: 1. H igh risk heterosexual behavior - Z72.51 Plan: * Treatment: ?LAB: HCV Antibody-[id number] ?LAB: Syphilis RPR w/reflex * Procedure Codes: * true * Date: Generated for Printi ng/Faxing/eTransmitting on: 1 05:39 PM EDT
--- OUTSIDE RECORDS SUMMARY | 2025-08-21 12:00 | XMS_ITS | Encounter Summary ---
Author Organization [facility] Address [address] [place] [address] Care Team Providers Care Hand Roller Engraver Name Role Phone Araceli Augustin Primary Care Provider + Reason for Visit * Therapy (Routine) - Authorized Specialty Diagnoses / Procedures Referred By Corine strange Referred To Contact Occupational Therapy Diagnoses Osteochondrosis of lunate of left wrist Surgery follow-up Bessy Mesa MD [address] [place] [phone] Phone: tel: fax: Referral ID Status Reason Start Date Expiration Date Visits Requested Visits Authorized [id number] Authorized Consult and Treat 08/12/2025 08/12/2026 6 6 Encounter Details Date Type Department Care Team (Latest Contact Info) Description 08/21/2025 12:00 PM EDT Evaluation [facility] Occupational Therapy [address] [address] Nichelle Milian, OT 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 [facility] - Outpatient OCCUPATIONAL THERAPY EVALUATION Date: 08/21/2025 Visit Number: 1 Patient Name: María Phillips : 1965 Age: 60 y.o. Gender: female Diagnosis: ICD-10-CM ICD-9-CM 1. 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 M92.212 732.3 Date of Onset: 07/16/2025 Referring Provider: Bessy Mesa MD Insurance: Payor: [facility] / Plan: [facility] [employer] EMPLYS / Product Type: *No Product type* / Language: Speaks and understands Kiswahili as preferred language with no hot mill roller required has a past medical history of Abdominal pain, Anxiety, Carpal tunnel syndrome (01/23/2020), Change in bowel habits, Decreased appetite, Depressive disorder, Epigastric pain, GERD (gastroesophageal reflux disease), Globus sensation, Rokc's disease, History of actinic keratoses (03/19/2019), Joint pain, Post-traumatic osteoarthritis of left knee (10/03/2023), Rheumatoid arthritis ([facility] V24,[facility] V28) (12/25/2020), Throat pain, and Thyroid nodule (07/05/2021). has a past surgical history that includes Eye surgery (1973); orthopedic surgery (1995); Other surgical history (12/2017); Hernia repair (07/28/2018); Breast biopsy (Left, 2016); Breast surgery (Left, 2016); Carpal tunnel release (Right, 01/20/2020); Colonoscopy; Other surgical history (12/18/2024); Wrist surgery (Left, 2021); Ventral hernia repair (03/25/2025); Cholecystectomy; and Hand surgery (Right, 07/16/2025). is allergic to erythromycin, infliximab, sertraline, and clindamycin. Precautions: orders for ROM and strengthening Is the patient at Risk for Falls: No Concurrent Services: No Concurrent Services History of Present Illness: Pt had decompression of R distal radius d/t advanced avascular necrosisof lunate At f/u visit on 08/12/25, referred to therapy to address Rom and strength SUBJECTIVE Pt reports has messaged MD earlier today d/t increased pain/can't tolerate it despite wearing the brace; it has worsened over the past few weeks despite wearing the brace and only removing for light activity Im also having a lot of RA that Im not being treated from currently Current Functional Limitations: Reported by Patient pain waking her up from sleep; works at [employer] ([employer]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, 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; it is overall a light job w/out much lifting d/t her seniority) Pain: 08/15 'So bad I wish I could amputate 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), Prior Level of Function: Variable tolerance d/t other body pains OBJECTIVE General Observations/Comments: Arrives w/ R wrist support applied; when removed, there is crease miguel that crosses her incision Red rash on R prox forearm which she attributes to side effect of supplements and/or skin sensitivity/dermatographia Dominant Hand: Right Adult Health Clinical Nurse Specialist Right 20 pounds Left 47 pounds Pinch R lateral pinch 5 L lateral pinch 11 OT Shoulder ROM: WNL OT Elbow/forearm ROM WNL OT Wrist ROM Right Left AROM PROM WRIST AROM PROM 45 Extension 65 20 Flexion 55 OT Digit ROM WNL Lag to DPC DIGIT DISTANCE TO DISTAL PALMAR CREASE (cm) INDEX MIDDLE RING SMALL 0 0 0 0 Opposition THUMB OPPOSITION TO EACH DIGIT (cm) INDEX MIDDLE RING SMALL 0 0 0 0 Strength RIGHT LEFT COMMENTS SHOULDER Flexion 4/5: Good 4/5: Good Abduction 4/5: Good 4/5: Good ELBOW/ FOREARM Extension 4/5: Good 4/5: Good Flexion 4/5: Good 4/5: Good WRIST Extension 3-/5 Fair Minus 4/5: Good Flexion 3-/5 Fair Minus 4/5: Good 5/5: Normal - Full ROM and tolerates maximum resistance 4/5: Good - Full ROM and tolerates moderate resistance 4-/5: Good Minus - Full ROM and tolerates less than moderate resistance Breaks with resistance 3+/5: Fair Plus - Full ROM and tolerates minimal resistance Breaks with resistance 3/5: Fair - Full ROM against gravity and tolerates no resistance 3-/5: Fair Minus - < Full ROM against gravity 2+/5: Poor Plus - <50% ROM against gravity OR full ROM gravity eliminated with minimal resistance 2/5: Poor - Full ROM gravity eliminated and tolerates no resistance 2-/5: Poor Minus - < full ROM gravity eliminated 1/5: Trace 0/5: No muscle activation Palpation: mild sensitivity at incision Sensation: denies sensory changes TREATMENT INTERVENTIONS: (This Date of Service) Advised replace wrist AROM with AAROM assist of other hand; advised remove wrist support for therex Removed stay from R wrist support for days; can sleep with or without it Provided silicone gel scar pad w/ stockinette to serve as barrier btwn skin and wrist Pain Reassessment: remained severe ASSESSMENT María Phillips is a 60 y.o. female presenting for outpatient occupational therapy with complaints of Dominant R wrist pain, s/p surgery, with pain worsening in past few weeks. Significant clinical findings include: Reduced ROM and strength, reduced scale expert. Skilled Occupational therapy is medically necessary to restore ROM and scale expert and strength and activity tolerance . Upon further review of pt activity, she is wearing brace to work and suspect she is working againstit in order to perform her job; given that she reports it is a light duty job, advised to trial with metal stay removed Also pt demo'd that she has been performing aggressive AROM, advised to replace with gentler AAROM Pt awaiting response from MD re: pain, she notes that she has other medical issues including RA which may be contributing to pain Rehabilitation Potential: Rehab Potential: Condition Has Potential to Improve Learning Needs: Were Patient Learning needs assessed Yes Learning Needs: Rehabilitation Techniques and Procedures Learning Preferences: Demo Barriers to Learning: No Barriers to Learning Patient Education: [] Discussed, with patient and/or caregiver, the importance of therapy and appointment compliance in order to achieve goals in a timely manner. Education provided: HEP/recs as above Education Provided To: Patient utilizing Explanation, Demonstration, and Printed Material mode(s) of education Response to Education: Verbal Understanding, Demonstrated Skills, and Needs Practice / Reinforcement GOALS Goals Addressed This Visit's Progress OT 6-8 visits 1> Indep HEP (splint weaning, ROM, pain manage, eventual strength) 2. Dominant R scale expert strength at least 35# (vs 20initial, vs 47 L hand) 3. R wrist ext AROM at least 55 w/ tolerance for weightbearing during sit to stand 4. R wrist flex AROM at least 45 5. Reported tolerance for home manage/work duties of mod resistance not exceed 2/10 pain PLAN POC Development/Review: Initial Evaluation; Participants: Patient Skilled Therapy Plan Required: YES- Reasons for Rehab and Medical Necessity -- Reduce Need for Assist with Functional Activity/ADL's/Mobility Planned Therapy Interventions: Therapeutic Exercise (04566), Ultrasound (68689), and Manual Therapy(74710) Planned Therapy Duration: 6-8 visits Recommended Consults: none BILLING (This Date of Service) TOTAL TREATMENT TIME: 50 Minutes Evaluation Medium Complexity Justification ::: Clinical decision making of moderate complexity using standardized patient assessment instrument and/or measurable assessment of functional outcome Documentation completed by Nichelle Milian OT [facility]CCUPATIONAL [facility] [address] [place] [phone] Dept: [phone] Dept PATIENT NAME: María Phillips : 1965 Certification: This is to certify that the above named patient, who is under my care, requires skilled Therapy services as described in the above treatment plan. I further certify that the services outlined in this plan are skilled and medically necessary. I have reviewed this plan for rehabilitation services, and I recommend that these services continue to meet the above stated goals and plan. SIGNATURE: DATE Bessy Mesa MD Referring provider documented in this encounter Plan of Treatment Upcoming Encounters Date Type Department Care Team (Late st Contact Info) Description 08/28/2025 1:30 PM EDT Treatment [facility] Occupational Therapy [address] [place] [phone] Nichelle Milian OT 09/23/2025 3:45 PM EST Office Visit Orthopedic Surgery - [address] [place] [address] Bessy Mesa MD [address] [place] [phone] documented as of this encounter Goals Goal Patient Goal Type Associated Problems Recent Progress Patient-Stated? Author OT 6-8 visits General No Nichelle Milian OT Note: 1> Indep HEP (splint weaning, ROM, pain manage, eventual strength) 2. Dominant R scale expert strength at least 35# (vs 20initial, vs 47 L hand) 3. R wrist ext AROM at least 55 w/ tolerance for weightbearing during sit to stand 4. R wrist flex AROM at least 45 5. 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
--- NOTE | 2025-08-21 13:54 | A.OFFVIS_ITS ---
Vital Signs 08/21/25 14:01 Height 5 ft 4 in Weight 170 lb 6 oz BMI 29.2 BP 117/73 Blood Pressure Location Rt brachial Position Sitting Pulse 70 Pulse Source Pulse Oximeter Pulse Oximetry (%) 99 Oxygen Delivery Method Room Air Intake Visit Reasons: Myalgia Intake Note: Pain today 08/15 Travel Assistant Required: No Accompanied by: Self / Same As Patient Allergies erythromycin base Allergy (Verified 08/21/25 14:01) Hives etanercept (From Enbrel) Adverse Reaction (Intermediate, Verified 08/21/25 14:01) diverticulitis leflunomide Adverse Reaction (Intermediate, Verified 08/21/25 14:01) diverticulitis prednisone Adverse Reaction (Intermediate, Verified 08/21/25 14:01) Body pain gabapentin Adverse Reaction (Mild, Verified 08/21/25 14:01) tremors HPI Comments Details: The patient is a 60-year-old female presenting with chronic pain management, particularly focusing on sacroiliac joint dysfunction. The pain began in the groin area approximately two years ago, described as shooting pain, and subsequently spread to the buttocks, causing significant discomfort while sitting. An MRI revealed a cyst, and the patient was diagnosed with sacroiliac joint dysfunction by a visitor services specialist. The patient has received several injections in the lower back, with inconsistent results, and was discharged from physical therapy due to lack of improvement. The patient also has rheumatoid arthritis, with a notably high RA count, and osteoarthritis affecting the knees. She has experienced dermatographia and had a resolved H. pylori infection. Endorses pain over bilateral PSIS, tender to palpation, worse with stretching, sitting, standing, stairs, lying on affected side. - Onset: Pain began approximately two years ago. - Quality: Described as shooting pain initially in the groin, spreading to the buttocks. - Location: Primarily in the groin and buttocks, with some involvement of the lower back and knees. - Radiation: Pain radiates from the buttocks to the thighs and groin. - Exacerbating factors: Movement and certain physical manipulations increase pain. - Relieving factors: Previous injections provided temporary relief. - Interference: Pain affects sitting and daily activities. - Affect: Pain impacts daily activities and psychological well-being. - Analgesia: Previous injections provided inconsistent relief; current pain management strategies are under review. - Adverse Effects: Concerns about steroid use leading to necrosis of carpal bone. - Activities of Daily Living: Pain interferes with sitting and other daily functions. - Aberrant Drug Related Behaviors: No evidence of medication misuse or abuse re ported. [facility] Medical History (Updated 08/21/25 @ 16:04 by Tianna Martinez, HONEY BLENDER, CHARGEBACK SPECIALIST) Dermatographia Helicobacter pylori (H. 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 Sacroiliac joint pain Tendonitis of ankle, right Surgical History (Updated 08/12/25 @ 14:46 by Yenifer Daniel CMA) H/O decompression of ulnar nerve History of surgery Social History Household Members: Spouse and Family Housing: House Alcohol intake: current Alcohol intake frequency: a few times a month Patient Tobacco Use Status: Current everyday Tobacco user Tobacco use type: Cigarette Cigarettes Per Day: 10 Years Smoked: 15 years e-Cigarette/Vaping Use: Never Used service: No Current occupational status: employed 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 - Gastrointestinal: Reports resolved H. pylori infection. - Dermatological: Reports dermatographia, an autoimmune skin response. Physical Exam Exam Exam: General: awake, alert, oriented. Answers questions appropriately. Fully engaged in examination. Skin: warm, dry, intact HEENT: Normocephalic. Hearing intact. Cardiac: External chest normal in appearance. Respiratory: No cough, audible wheezing or stridor. Abdomen: without gross distension. MS: No obvious swelling or deformities. Able to transition from sit to stand unassisted. Ambulates with bilaterally normal heel strike and toe off Tenderness over bilateral PSIS. Gaenslen positive bilaterally, thigh thrust positive bilaterally, SI compression positive bilaterally. SLR negative bilaterally Full lumbar range of motion Neurological: Oriented to person, place, time and situation. Thought process intact. No gait abnormalities appreciated. Psychiatric: Appropriate mood and affect. Good judgment and insight. Vital Signs: Last Vital Signs Pulse 70 08/21/25 14:01 BP 117/73 08/21/25 14:01 Pulse Ox 99 08/21/25 14:01 Oxygen Delivery Method Room Air 08/21/25 14:01 BMI result Body Mass Index 29.2 Results Reviewed Results Reviewed: 02/10/25 MRI pelvis Findings: No acute fracture or concerning bone marrow signal alteration is identified. Alignment at the sacroiliac joints, hip joints, and pubic symphysis is anatomic. No significant subcortical bone marrow edema at the hip joints. Minor degenerative change of the hip joints. Small right hip joint effusion. Pubic rami are intact. No free fluid within the pelvis. Impression: No acute findings. Minor bilateral hip DJD. 01/21/25 x-ray sacroiliac joint FINDINGS: Mild sclerosis in the inferior aspect of the sacroiliac joints, left greater than the right side. There is a prominent right lateral transverse processes of L5 abutting the right S1. Marginal osteophyte formation and endplate sclerosis with decreased intervertebral disc height at L4-5 and L5-S1. Degenerative changes in the symphysis pubis. No acute cortical disruption. No lytic or blastic lesions. Focal calcifications overlapping the right mid sacrum. IMPRESSION: Mild left-sided sacroiliitis. 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 01/13/25 MR LUMBAR SPINE Findings: Minimal grade 1 retrolistheses T12 on L1, L1 on L2 and L2 on L3. No acute fracture or pathologic bone lesion. Cauda equina and conus medullaris within normal limits. T12-L1: Modic type 2 endplate changes. No significant disc displacement. Facet arthropathy. No significant spinal stenosis. Moderate right foraminal stenosis. L1-L2: Biforaminal disc protrusions and facet arthropathy. No significant spinal stenosis. Moderate bilateral foraminal stenoses. L2-L3: Biforaminal disc protrusions and facet arthropathy. No significant spinal stenosis. Mild right and moderate left foraminal stenoses. L3-L4: Moderate disc bulge and facet arthropathy. Mild spinal stenosis. Mild right and moderate left foraminal stenoses. L4-L5: Moderate disc bulge and facet arthropathy. Mild spinal stenosis. Severe bilateral foraminal stenoses, left greater than right. L5-S1: Mild disc bulge and facet arthropathy. No significant spinal stenosis. Moderate left foraminal stenosis. Visualized retroperitoneum unremarkable. Paraspinous musculature intact. IMPRESSION: 1. L3-4 and L4-5 disc bulges with mild spinal stenosis. 2. Multilevel facet arthropathy with varying degrees of foraminal stenoses, most prominent at L4-5. 3. Multilevel grade 1 spondylolistheses. No acute fracture. Assessment & Plan Assessment & Plan (1) Sacroiliac joint dysfunction of both sides: Code(s): M53.3 - Sacrococcygeal disorders, not elsewhere classified Category: Medical (2) Lumbar facet arthropathy: Code(s): M47.816 - Spondylosis without myelopathy or radiculopathy, lumbar region Category: Medical (3) Bilateral knee pain: Code(s): M25.561 - Pain in right knee; M25.562 - Pain in left knee Category: Medical Plan The plan includes submitting documentation for insurance approval to conduct diagnostic injections on both sacroiliac joints to confirm the diagnosis and provide temporary relief. We discussed treatment options for facet arthropathy including radiofrequency ablation and neurostimulation, to avoid further steroid use due to its adverse effects. The patient is advised to continue monitoring symptoms and maintain a pain diary to assist in evaluating the effectiveness of interventions. Will schedule for fluoroscopy guided bilateral diagnostic sacroiliac joint injections with local anesthetic. Patient has exhausted conservative therapy including PT, home exercise program, NSAIDs, muscle relaxers, ice, heat, topical medications. Patient was informed and verbally consented to the use of an ambient scribe for clinic note documentation during this visit. Patient Instructions: - Keep a detailed pain diary to track symptoms and treatment effectiveness. - Await contact for scheduling diagnostic injections once insurance approval is obtained. - Avoid further steroid use unless absolutely necessary due to potential adverse effects. Coding Level of Care Code New Pt Level 4 (86308) Complex EM visit Add On G2211 Diagnoses Sacroiliac joint dysfunction of both sides M53.3 Lumbar facet arthropathy M47.816 Bilateral knee pain M25.561; M25.562
[2025-08-21 14:01] VITALS: BP 117/73; PULSE 70; O2SAT 99; BMI 29.2
--- OUTSIDE RECORDS SUMMARY | 2025-08-21 17:35 | XMS_ITS | Encounter Summary ---
Author Organization [facility] Address [address] [place] [address] Care Team Providers Care Heating Element Builder Name Role Phone Monty Allan MD Primary Care Provider [phone] [facility], Pcp Primary Care Provider UnavailTasia Barnhart MD Primary Care Provider + [phone] Jewel Manzano MD Unavailable [phone] Jalil Paulson MD Unavailable Unavailable Reason for Visit * Reason Onset Date Comments Wrist Pain 12/16/2019 Encounter Details Date Type Department Care Team Description 12/16/2019 Telephone Physiatry - [address] [address] Kyle Barahona PA-C Wrist Pain Social History Tobacco Use Types Packs/Day Years Used Date Smoking Tobacco: Every Day Cigarettes 0.5 15 Last attempted to quit: 07/15/2018 Smokeless Tobacco: Never Alcohol Use Standard Drinks/Week Comments Yes 0 (1 standard drink = 0.6 oz pur e alcohol) Social Sex Assigned at Date Recorded Female 07/02/2024 12:20 PM EDT Job Start Date Occupation Industry Not on file Not on file Not on file documented as of this encounter Miscellaneous Notes * Telephone Encounter - Bailey Membreno M.A. - 12/16/2019 10:13 AM EST My advise would be that she books an appointment with Brett Barahona PA-C Ok to use locked appointment * Telephone Encounter - Vinod Navas - 12/16/2019 10:11 AM EST Patient called stating her wrist pain got worse. She is in so much pain. Asking to talk with the nurse for an advise. Please review and call documented in this encounter Plan of Treatment Not on file documented as of this encounter Visit Diagnoses Not on filedocumented in this encounter Care Teams Heating Element Builder Relationship Specialty Start Date End Date Monty Allan MD [address] [place] [address] PCP - General Internal Medicine 02/16/15 07/12/22 [facility], [address] [address] PCP - General Internal Medicine 07/13/22 04/26/23 Tasia Ash MD [address] [place] [address] PCP - General Internal Medicine 04/27/23 Jewel Manzano MD [address] [address] ORTHOPEDIC SURGERY 07/14/23 Jalil Paulson MD [address] [address] Ophthalmology 11/09/23 06/02/24 Gringer Specialist Rheumatology 07/14/23 11/08/23 Brimer Specialist Rheumatology 11/09/23 Trivedi Specialist PAIN MANAGEMENT 12/18/23 Tallat Specialist Rheumatology 06/03/24 [facility] neurology Specialist Neurology 06/03/24 Pulliat Specialist Optometry 06/03/24 documented as of this encounter
--- OUTSIDE RECORDS SUMMARY | 2025-08-21 17:35 | XMS_ITS | Encounter Summary ---
Author Organization [facility] Address [address] [place] [address] Care Team Providers Care Installer Soft Top Name Role Phone Monty Allan MD Primary Care Provider [facility], Pcp [facility] Tasia Rush MD Primary Care Provider [phone] Jewel Manzano MD Unavailable [phone] Jalil Paulson MD Unavailable Unavailable Encounter Details Date Type Department Care Team Description 11/07/2019 Orders Only Rheumatology - [address] [address] Von [place]ales, [place] Social History Tobacco Use Types Packs/Day Years [...] on file documented as of this encounter Plan of Treatment Not on file documented as of this encounter Visit Diagnoses Not on filedocumented in this encounter Care Teams Installer Soft Top Relationship Specialty Start Date End Date Monty Allan MD [address] [place] [address] PCP - General Internal Medicine 02/16/15 07/12/22 [facility], Pcp [address] [place] [address] PCP - General Internal Medicine 07/13/22 04/26/23 Tasia Ash MD [address] [place] [address] PCP - General Internal Medicine 04/27/23 Jewel Manzano MD 175 [facility] [address] [place] [address] ORTHOPEDIC SURGERY 07/14/23 Jalil Paulson MD 175 [facility] [address] [place] [address] Ophthalmology 11/09/23 06/02/24 Gringer Specialist Rheumatology 07/14/23 11/08/23 Brimer Specialist Rheumatology 11/09/23 Trivedi Specialist PAIN MANAGEMENT 12/18/23 Tallat Specialist Rheumatology 06/03/24 [facility] neurology Specialist Neurology 06/03/24 Erica Specialist Optometry 06/03/24 documented as of this encounter
--- OUTSIDE RECORDS SUMMARY | 2025-08-21 17:35 | XMS_ITS | Encounter Summary ---
Author Organization [facility] Address [address] [place] [address] Care Team Providers Care Signal Constructor Name Role Phone Monty Allan MD Primary Care Provider [phone] [facility], Pcp Primary Care Provider Tasia Stallings MD Primary Care Provider [phone] Jewel Manzano MD Unavailable [phone] Jalil Paulson MD Unavailable Unavailable Encounter Details Date Type Department Care Team Description 01/01/2020 Lead Informatica Developer Report Medical Records [address] [place] [address] Jersey Rey MD Social History Tobacco Use Types Packs/Day Years [...] on filedocumented in this encounter Care Teams Signal Constructor Relationship Specialty Start Date End Date Monty Allan MD [address] [place] [address] PCP - General Internal Medicine 02/16/15 07/12/22 [facility] Pcp [address] [place], [place] PCP - General Internal Medicine 07/13/22 04/26/23 Tasia Ash MD [address] [place] [address] PCP - General Internal Medicine 04/27/23 Jewel Manzano MD [address] [address] ORTHOPEDIC SURGERY 07/14/23 Jalil Paulson MD [address] [address] Ophthalmology 11/09/23 06/02/24 Gringer Specialist Rheumatology 07/14/23 11/08/23 Brimer Specialist Rheumatology 11/09/23 Trivedi Specialist PAIN MANAGEMENT 12/18/23 Tallat Specialist Rheumatology 06/03/24 [facility] neurology Specialist Neurology 06/03/24 Amauriiat Specialist Optometry 06/03/24 documented as of this encounter
--- OUTSIDE RECORDS SUMMARY | 2025-08-21 17:35 | XMS_ITS | Encounter Summary ---
Author Organization [facility] Address [address] [place] [address] Care Team Providers Care Wild Animal Caretaker Name Role Phone Araceli Augustin Primary Care Provider + Encounter Details Date Type Department Care Team (Late st Contact Info) Description 08/06/2025 Results Follow-Up Gastroenterology - [place] 175 [facility] 175 [facility] [address] [place] [phone] Gia Lance, NICOLE 175 [facility] [address] [place] [address] Social History Tobacco Use Types Packs/Day Years [...] Info) Description 08/28/2025 1:30 PM EDT Treatment [facility] Occupational Therapy 175 [facility] [address] [place] [phone] Nichelle Milian OT 09/23/2025 3:45 PM EST Office Visit Orthopedic Surgery - [place] 175 [facility] [address] [place] [phone] Bessy Mesa MD [address] [place] [phone] documented as of this encounter Visit Diagnoses Not on filedocumented in this encounter Care Teams Wild Animal Caretaker Relationship Specialty Start Date End Date Araceli Augustin PA [address] [place] [phone] PCP - General 11/20/24 documented as of this encounter
--- OUTSIDE RECORDS SUMMARY | 2025-08-21 17:35 | XMS_ITS | Clinical Summary ---
Author Organization [facility] Address [address] [place] [address] Phone Care Team Providers Care Rotary Surface Grinder Name Role Phone Vee Allan MD Primary [...] Medical Devices Not on file Care Teams Rotary Surface Grinder Relationship Specialty Start Date End Date Vee Allan MD [address] [place] [address] PCP - General Internal Medicine 09/01/20 Additional Source Comments The information contained in this document represents components of the legal health record. It is not the complete legal health record.[facility]
--- OUTSIDE RECORDS SUMMARY | 2025-08-21 17:35 | XMS_ITS | Encounter Summary ---
Author Organization [facility] Address [address] [place] [address] Care Team Providers Care Machine Welder Name Role Phone Monty Allan MD Primary Care Provider [phone] Counts Include [address] [facility], Pcp Primary Care Provider [facility] Tasai Ash MD Primary Care Provider + [phone] Jewel Manzano MD Unavailable [phone] Jalil Paulson MD Unavailable Unavailable Reason for Visit * Reason Comments E-prescribe Rx Request Encounter Details Date Type Department Care Team Description 11/25/2019 Refill Rheumatology - [address] [address] Von Morales, PA E-prescribe Rx Request Social History Tobacco Use Types Packs/Day Years [...] encounter Miscellaneous Notes * Telephone Encounter - Keiry Bermeo - 11/25/2019 1:42 PM EST Patient would like script to be: E-PRESCRIBED/FAXED TO PHARMACY WHEN WAS THE PATIENT'S LAST APPOINTMENT IN ADULT MEDICINE? 11/05/19 WHEN WAS THE LAST TIME THE PATIENT SAW THEIR PCP? Same as above Does patient have an upcoming appointment? Yes 12/03/19 (THE MEDICATION REQUESTED IS ON THE MED LIST ABOVE) All of the medications requested were on the CURRENT MEDS list Did you check the Pharmacy information above?: YES Patient wants: 30 -day supply Is this a mail order prescription request ? NO If the refill is from a FAXED refill request what is the RX # listed on the fax? N/A Patients current insurance carrier is: Payor: [employer] / Plan: PPO $20 [place] [id number] / Product Type: POS [id number] documented in this encounter Plan of Treatment Not on file documented as of this encounter Visit Diagnoses Not on filedocumented in this encounter Care Teams Machine Welder Relationship Specialty Start Date End Date Monty Allan MD [address] [place] [address] PCP - General Internal Medicine 02/16/15 07/12/22 [facility] [address] [place], [place] PCP - General Internal Medicine 07/13/22 04/26/23 Tasia Ash MD [address] [place] [address] PCP - General Internal Medicine 04/27/23 Jewel Manzano MD [address] [address] ORTHOPEDIC SURGERY 07/14/23 Jalil Paulson MD [address] [address] Ophthalmology 11/09/23 06/02/24 [facility] Specialist Rheumatology 07/14/23 11/08/23 Brimer Specialist Rheumatology 11/09/23 Farooq Specialist PAIN MANAGEMENT 12/18/23 Tallat Specialist Rheumatology 06/03/24 [facility] neurology Specialist Neurology 06/03/24 Erica Specialist Optometry 06/03/24 documented as of this encounter
--- OUTSIDE RECORDS SUMMARY | 2025-08-21 17:36 | XMS_ITS | Encounter Summary ---
Author Organization [facility] Address [address] [place] [address] Care Team Providers Care Gate Cutter Name Role Phone Tasia Ash MD Primary Care Provider [phone] Jewel Manzano MD Unavailable [phone] Jalil Paulson MD Unavailable Unavailable Encounter Details Date Type Department Care Team Description 10/10/2023 Pt. Non Urgent Medic al Question Adult Medicine - [address] [address] Henry Acevedo PA-C [address] [place] [address] Social History Tobacco Use Types Packs/Day Years [...] encounter Miscellaneous Notes * Telephone Encounter - Charley Ybarra L.P.N. - 10/10/2023 11:22 AM ESTFrom: María Phillips To: Magdalena Acevedo Sent: 10/10/2023 11:19 AM EST Subject: Cancellations Just checking 1 more time to see if there are any cancellations after 1. Thank you documented in this encounter Plan of Treatment Not on file documented as of this encounter Visit Diagnoses Not on filedocumented in this encounter Care Teams Gate Cutter Relationship Specialty Start Date End Date Tasia Ash MD [address] [place] [address] PCP - General Internal Medicine 04/27/23 Jewel Manzano MD 175 [facility] [address] [place] [address] ORTHOPEDIC SURGERY 07/14/23 Jalil Paulson MD [address] [address] Ophthalmology 11/09/23 06/02/24 Gringer Specialist Rheumatology 07/14/23 11/08/23 Brimer Specialist Rheumatology 11/09/23 Trivedi Specialist PAIN MANAGEMENT 12/18/23 Tallat Specialist Rheumatology 06/03/24 [facility] neurology Specialist Neurology 06/03/24 Amauriiat Specialist Optometry 06/03/24 documented as of this encounter
--- OUTSIDE RECORDS SUMMARY | 2025-08-21 17:36 | XMS_ITS | Encounter Summary ---
Author Organization [facility] Address [address] [place] [address] Care Team Providers Care Php Website Developer Name Role Phone Tasia Ash MD Primary Care Provider [phone] Jewel Manzano MD Unavailable [phone] Jalil Paulson MD Unavailable Unavailable Reason for Referral * Radiology Services (Routine) - Closed Specialty Diagnoses / Procedures Referred By Corine strange Referred To Contact Radiology Diagnoses Abnormal CT of the abdomen Procedures MRI ABD W/WO CONTRAST Rajan Sanders PA-C [address] [place] [address] [facility]/[place] [address] [place] [address] Referral ID Status Reason Start Date Expiration Date Visits Re quested Visits Authorized [id number] Closed 01/05/2024 04/05/2024 1 1 Encounter Details Date Type Department Care Team Description 01/05/2024 Telephone Gastroenterology - [place] 175 [facility] [address] [place] [address] Rajan Sanders PA-C Social History Tobacco Use Types Packs/Day Years [...] encounter Miscellaneous Notes * Telephone Encounter - Falguni Fuchs - 01/05/2024 12:35 PM EST Waiting for prior authorization to get it approved. * Telephone Encounter - Rajan Sanders PA-C - 01/05/2024 12:16 PM EST Patient is noted to have issues on CAT scan regarding her common bile duct as well as lesion in theliver. Needs an MRI/MRCP and we will be in touch with her when the results are received documented in this encounter Plan of Treatment Not on file documented as of this encounter Results * MRI ABD W/WO CONTRAST (01/11/2024 2:01 PM EST) 01/11/2024 6:18 PM EST Impressions [facility] OTHER EXTERNAL - 01/11/2024 6:28 PM EST IMPRESSION: 1. Hepatic lesion is consistent with cyst. 2. Hepatic steatosis 3. Common bile duct is within normal limits. No mass lesion is identified at the pancreas. Narrative [facility] OTHER EXTERNAL - 01/11/2024 6:28 PM EST MRI ABDOMEN WITH AND WITHOUT CONTRAST CLINICAL HISTORY: Dilated common bile duct and lesion in the liver COMPARISON: CT abdomen and pelvis from 01/04/2024 TECHNIQUE: Multiplanar, multisequence imaging of the upper abdomen was performed before and after administration of15cc of gadolinium COMMENT: The lung bases are within normal limits. Diffuse dropout of signal on the in/out phase images suggesting hepatic steatosis. 0.9 cm hypodense lesion within the right hepatic lobe demonstrates low signal on T1 and high signal on T2 and does not demonstrate enhancement consistent with cyst. No mass lesions. No intrahepatic biliary dilatation. The patient is status post cholecystectomy. The common bile duct tapers normally. The pancreas and spleen demonstrate normal signal characteristics. No pancreatic ductal dilatation. Adrenal glands and kidneys are within normal limits. Visualized bowel is without obstruction. No significant lymphadenopathy. No free fluid in the upper abdomen. The major arteriovascular structures demonstrate normal signal characteristics. Subcutaneous soft tissues and osseous structures demonstrate normal signal characteristics. Procedure Note Meggan Cuevas MD - 01/11/2024 MRI ABDOMEN WITH AND WITHOUT CONTRAST CLINICAL HISTORY: Dilated common bile duct and lesion in the liver COMPARISON: CT abdomen and pelvis from 01/04/2024 TECHNIQUE: Multiplanar, multisequence imaging of the upper abdomen wasperformed before and after administration of15cc of gadolinium COMMENT: The lung bases are within normal limits. Diffuse dropout of signal on the in/out phase images suggesting hepaticsteatosis. 0.9 cm hypodense lesion within the right hepatic lobe demonstrates low signal onT1 and high signal on T2 and does not demonstrate enhancement consistent with cyst. No masslesions. No intrahepatic biliary dilatation. The patient is status post cholecystectomy. Thecommon bile duct tapers normally. The pancreas and spleen demonstrate normal signal characteristics. Nopancreatic ductal dilatation. Adrenal glands and kidneys are within normal limits. Visualized bowel is without obstruction. No significant lymphadenopathy.No free fluid in the upper abdomen. The major arteriovascular structures demonstrate normal signalcharacteristics. Subcutaneous soft tissues and osseous structures demonstrate normal signalcharacteristics. IMPRESSION IMPRESSION: 1. Hepatic lesion is consistent with cyst. 2. Hepatic steatosis 3. Common bile duct is within normal limits. No mass lesion is identifiedat the pancreas. Rajan Tommy JENSEN MRI [place] OTHER EXTERNAL documented in this encounter Visit Diagnoses Diagnosis Abnormal CT of the abdomen- Primary Nonspecific (abnormal) findings on radiological and other examination of abdominal area, including retroperitoneum Abnormal CT of the abdomen Nonspecific (abnormal) findings on radiological and other examination of abdominal area, including retroperitoneum documented in this encounter Care Teams Php Website Developer Relationship Specialty Start Date End Date Tasia Ash MD [address] [place] [address] PCP - General Internal Medicine 04/27/23 Jewel Manzano MD [address] [place] [address] ORTHOPEDIC SURGERY 07/14/23 Jalil Paulson MD [address] [place] [address] [place] [address] Ophthalmology 11/09/23 06/02/24 Brimer Specialist Rheumatology 11/09/23 Trivedi Specialist PAIN MANAGEMENT 12/18/23 Juanat Specialist Rheumatology 06/03/24 [facility] neurology Specialist Neurology 06/03/24 Erica Specialist Optometry 06/03/24 documented as of this encounter
--- OUTSIDE RECORDS SUMMARY | 2025-08-21 17:36 | XMS_ITS | Encounter Summary ---
Author Organization [facility] Address [address] [place] [address] [place] [address] Phone Care Team Providers Care Committee Member Name Role Phone Vee Allan MD Primary Care Pr ovider Encounter Details Date Type Department Care Team (Late st Contact Info) Description 10/08/2020 Ancillary Orders [facility] - Orthopaedics Outpatient Practice 52 [facility], 1st Floor, [address] [place] [address] Finn Bone MD [address] [place] [address] [email or web address] Hand joint pain Social History Tobacco Use [...] hand documented in this encounter Care Teams Committee Member Relationship Specialty Start Date End Date Vee Allan MD [address] [place] [address] PCP - General Internal Medicine 09/01/20 documented as of this encounter Additional Source Comments The information contained in this document represents components of the legal health record. It is not the complete legal health record.[facility]
--- OUTSIDE RECORDS SUMMARY | 2025-08-21 17:36 | XMS_ITS | Data Portability ---
Author Organization [facility], [address] Address [address] [place] [address] Care Team Providers Care Records Management Director Name Role Phone [facility] Primary Care Provi ramses Assessment No assessment recorded. Plan of Treatment Reminders Order Date Submit Date Provider Last Modified By Organization Details Last Modified Time Details Appointments None recorded. Lab rapid strep group A, throat 2022 023 [email or web address] [facility], [address] [place] [address], [address], 3 19:09:54 streptococc us group A, culture, throat 2022 023 [email or web address] [facility], [address] [place] [address], [place], [address], 3 19:09:54 Referral emergency medicine referral - left lower facial weakness and numbness x 5 days [email or web address] Emergency Department, [address] [place], [address], 4 18:35:48 Procedures None recorded. Surgeries None recorded. Imaging None recorded. Medication Orders prednisone 20 mg tablet 2022 023 yestrella 5 [id number], [address] [place], [address], 4 16:05:23 benzonatate 200 mg capsule 2022 023 yestrella 5 [id number], [address] [place], [address], 16:05:13 Patient TargetsNo targets recorded. Patient Instructions Encounter Date Encounter Id Patient Instructions Last Modified By Organization Details Last Modified Time 12/17/2022 [id number] sore throat: car e instructions [email or web address] Not [...] care for yourself at home? Take an tbut-qph-qsurtjh pain medicine. Avoid Ibuprofen, Aleve and Aspirin if . If the doctor prescribed antibiotics, take them as directed. Do not stop taking them just because you feel better. You need to take the full course of antibiotics. Be careful when taking adxz-cuw-nrfhfnl cold or influenza (flu) medicines and Tylenol [...] worse. [email or web address] Not available 12/17/2022 19:07:18 05/19/2024 [id number] head or face zehra n: care instructions [...] Negat aashish Not Available [facility] ([facility]) [address] [facility], [place], [address], 12/21/2022 06:07:48 12/17/1912/17/2022 rapid strep group A, throa t Unknown Analyte Normal = Negati ve Not Available [address] [place], [address], 12/17/2022 18:34:11 12/17/1912/17/2022 rapid strep group A, throa t Unknown Analyte negati ve Not Available [address] [place], [address], 12/17/2022 18:34:11 Result Notes None recorded. 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 Procedures Surgical History Date Name Laterality Status Provider Name and Address Organization Details Recorded Time 2 procedure on wrist completed ANNETTE RAYMOND PA - [facility] 12/17/2022 18:39:38 Imaging Results None recorded. Procedure Notes None recorded. Medical Equipment None Reported. Allergies Allergen ID Allergen Name Allergen Category Reaction Reaction Severity Criticality Documentation Date Start Date Code Code System Note Provider Name and Address Organization Details Recorded Time 871079 erythromy libby medicatio n hives Not available [...] Updated DateTime 3 162.56 cm 27.5 kg/m2 87804.7 8 g 97 [degF] 16 /min 98 [...] Updated DateTime 4 162.56 cm 27.5 kg/m2 78297.7 8 g 5 97.9 [degF] 18 /min [...] Smoke? 0.5 PPD Information not available 12/17/2022 Have You Recently Traveled Abroad? No [email or web address] Information not available 12/17/2022 Sex: Unknown Functional Status Question Answer Note LastModified by Organizat ion Details LastModified Time Do you use any illicit or recreational drugs? No [email or web address] Information not available 12/17/2022 Do you or have you ever used any other forms of tobacco or nicotine? No [email or web address] Information not available 12/17/2022 What is your level of alcohol consumption? Occasional Information not available 05/19/2024 Mental Status None recorded. Family History Relationship Description Onset Age of this Age Resolved Age Notes LastModified by Organization Details LastModified Time Unspecified Relation Disorder of thyroid gland [email or web address] Not available 2022 18:38:50 Medical History No [...] Diagnosis SNOMED-CT Code Diagnosis ICD10 Code Diagnosis IMO Codes Diagnosis [place] [id number] [address] [address] 12/17/2022 17:31:11 12/17/2022 19:17:28 Sore throat 537656674 J02.9 [id number] [place] [address] [address] 05/19/2024 15:59:19 05/19/2024 16:21:39 Numbness of face 035114247 R20.0 ER now !!! Health Concerns Section Related Observation LastModified by Organization Detai ls LastModified Time None Recorded Concern Status LastModified by Organization Details LastModified Time None Recorded Advance Directives Directive None Recorded Payers Insurance Date Sequence Insurance Name Policy Number Policy Chacko Covered Member ID Chacko Member ID Guarantor Name 05/19/2024 2 [facility] [id number] [facility] 05/19/2024 1 [facility] SHARED [facility] - HA - DOS PRIOR TO 2024 (PPO) [facility] [id number] [facility] 12/17/2022 2 [employer] (POS) [facility] [id number] [facility] 05/19/2024 1 [employer] SIGNATURE ADMINISTRATORS - GEHA - DOS ON OR BEFORE 11/05/2023 - GEHA (PPO) [facility] [id number] [facility] 05/02/2023 1 [employer] [facility] [id number] [facility] Notes Date Note Type Note Provider Name and Address Organization Details Recorded Time 12/17/2022 text/html Sore throatRepor abo by PatientSore ThroatFor associated symptoms, patient reportssore throat,hoarseness,cough ing, andsinus pain/ congestionbut reportsno sputum production,no shortness of breath,no wheezing,no vomiting, andno nausea. For context, patient reportssick contactbut reportsno foreign travelandnon-smoker. For modifying factors, patient reportsexposed to strep non household. For source of patient information, patient reportsinformation obtained from patient,patient arrived at urgent care ambulatory, andlearning styles: auditory. For location, patient reportsthroat. For severity, patient reportsmild. For quality, patient reportssharpandburning. For onset/timing, patient reports3 days. Narendra Diaz NP [address] [place], [address], PA - [facility] 12/17/2022 19:11:14 05/19/2024 text/html Facial ProblemRe ported by Patient a couple of weeks. twitching in face. x5 days having facial pain. pain level is 5/10. feels slight numbness on left side of mouth. patient also notices lower facial weakness as well. no chest pain. has slight head ache Juan F Noe DO [address] [place], [address], PA - [facility] 05/19/2024 16:42:19 OBGyn Episode No OBEpisode recorded.
--- OUTSIDE RECORDS SUMMARY | 2025-08-21 17:36 | XMS_ITS | Encounter Summary ---
Author Organization [facility] Address [address] [place] [address] Care Team Providers Care Circle Saw Operator Name Role Phone Monty Allan MD Primary Care Provider [phone] [facility], Pcp Primary Care Provider Tasia Stallings MD Primary Care Provider [phone] Jewel Manzano MD Unavailable [phone] Jalil Paulson MD Unavailable Unavailable Encounter Details Date Type Department Care Team Description 10/27/2020 Pie Chef Report Medical Records [address] [place] [address] Chintan Condon MD Social History Tobacco Use Types Packs/Day [...] on filedocumented in this encounter Care Teams Circle Saw Operator Relationship Specialty Start Date End Date Monty Allan MD [address] [place] [address] PCP - General Internal Medicine 02/16/15 07/12/22 [facility], Pcp [address] [place], [place] PCP - General Internal Medicine 07/13/22 04/26/23 Tasia Ash MD [address] [place] [address] PCP - General Internal Medicine 04/27/23 Jewel Manzano MD [address] [address] ORTHOPEDIC SURGERY 07/14/23 Jalil Paulson MD [address] [address] Ophthalmology 11/09/23 06/02/24 [facility] Specialist Rheumatology 07/14/23 11/08/23 Brimer Specialist Rheumatology 11/09/23 Trivedi Specialist PAIN MANAGEMENT 12/18/23 Tallat Specialist Rheumatology 06/03/24 [facility] neurology Specialist Neurology 06/03/24 Erica Specialist Optometry 06/03/24 documented as of this encounter
--- OUTSIDE RECORDS SUMMARY | 2025-08-21 17:36 | XMS_ITS | Encounter Summary ---
Author Organization [facility] Address [address] [place] [address] [place] [address] Phone Care Team Providers Care Secretary To Board Of Commissioners Name Role Phone Vee Allan MD Primary Care Pr ovider Encounter Details Date Type Department Care Team (Late st Contact Info) Description 10/08/2020 Ancillary Orders [facility] - Orthopaedics Outpatient Practice [address] [facility], 1st Floor, [address] [place] [address] Finn Bone MD [address] [place] [address] [email or web address] Hand joint pain Social History Tobacco Use [...] hand documented in this encounter Care Teams Secretary To Board Of Commissioners Relationship Specialty Start Date End Date Vee Allan MD [address] [place] [address] PCP - General Internal Medicine 09/01/20 documented as of this encounter Additional Source Comments The information contained in this document represents components of the legal health record. It is not the complete legal health record.[facility]
--- OUTSIDE RECORDS SUMMARY | 2025-08-21 17:36 | XMS_ITS | Encounter Summary ---
Author Organization [facility] Address [address] [place] [address] Care Team Providers Care Process Development Technician Name Role Phone Tasia Ash MD Primary Care Provider [phone] Jewel Manzano MD Unavailable [phone] Jalil Paulson MD Unavailable Unavailable Encounter Details Date Type Department Care Team Description 10/10/2023 Pt. Non Urgent Medic al Question Adult Medicine - [address] [address] Henry Acevedo PA-C [address] [place] [place] [address] Social History Tobacco Use Types Packs/Day Years [...] Miscellaneous Notes * Telephone Encounter - Charley DiamondPCliveNClive - 10/10/2023 8:24 AM ESTFrom: María Phillips To: Magdalena Acevedo Sent: 10/10/2023 7:36 AM EST Subject: 1pm Appointment Hi, I was wondering if there was a cancellation for later in the day. 3 or 4ish. If not I will be there at 1. Thank you. María documented in this encounter Plan of Treatment Not on file documented as of this encounter Visit Diagnoses Not on filedocumented in this encounter Care Teams Process Development Technician Relationship Specialty Start Date End Date Tasia Ash MD [address] [place] [address] PCP - General Internal Medicine 04/27/23 Jewel Manzano MD [address] [address] ORTHOPEDIC SURGERY 07/14/23 Jalil Paulson MD [address] [address] Ophthalmology 11/09/23 06/02/24 [facility] Specialist Rheumatology 07/14/23 11/08/23 Brimer Specialist Rheumatology 11/09/23 Trivedi Specialist PAIN MANAGEMENT 12/18/23 Tallat Specialist Rheumatology 06/03/24 [facility] neurology Specialist Neurology 06/03/24 Erica Specialist Optometry 06/03/24 documented as of this encounter
--- OUTSIDE RECORDS SUMMARY | 2025-08-21 17:36 | XMS_ITS | Encounter Summary ---
Author Organization [facility] Address [address] [place] [address] Care Team Providers Care Driller Portable Name Role Phone Tasia Ash MD Primary Care Provider [phone] Jewel Manzano MD Unavailable [phone] Jalil Paulson MD Unavailable Unavailable Encounter Details Date Type Department Care Team Description 10/19/2023 Pt. Non Urgent Medic al Question Adult Medicine - [place] [address] [place] [address] Tasia Ash MD [address] [place] [address] Social History Tobacco Use Types Packs/Day Years [...] encounter Miscellaneous Notes * Telephone Encounter - Bessy العراقي L.P.N. - 10/19/2023 9:34 AM EST From: María Phillips To: César Ash Sent: 10/19/2023 9:26 AM EST Subject: Feeling unwell I haven???t been feeling well for the last few days. Started with nausea, diarrhea and low grade fever. Now scratchy throat, runny nose, headache and body pain. Wondering if I should be seen. Thanks documented in this encounter Plan of Treatment Not on file documented as of this encounter Visit Diagnoses Not on filedocumented in this encounter Care Teams Driller Portable Relationship Specialty Start Date End Date Tasia Ash MD [address] [place] [address] PCP - General Internal Medicine 04/27/23 Jewel Manzano MD 175 [facility] [address] [place] [address] ORTHOPEDIC SURGERY 07/14/23 Jalil Paulson MD [address] [address] Ophthalmology 11/09/23 06/02/24 Gringer Specialist Rheumatology 07/14/23 11/08/23 Lucioimer Specialist Rheumatology 11/09/23 Trivedi Specialist PAIN MANAGEMENT 12/18/23 Tallat Specialist Rheumatology 06/03/24 [facility] neurology Specialist Neurology 06/03/24 Amauriarh [facility] Specialist Optometry 06/03/24 documented as of this encounter
--- OUTSIDE RECORDS SUMMARY | 2025-08-21 17:36 | XMS_ITS | Encounter Summary ---
Author Organization [facility] Address [address] [place] [address] Care Team Providers Care Paper Products Machine Operator Name Role Phone Araceli Augustin Primary Care Provider + Reason for Visit * Reason Onset Date Comments Provider Call Back 07/16/2025 Encounter Details Date Type Department Care Team (Late st Contact Info) Description 07/16/2025 Telephone Gastroenterology - [place] 175 [facility] 175 [facility] [address] [place] [address] Gia Lance, NICOLE 175 [facility] [address] [place] [address] Social History Tobacco Use Types Packs/Day Years [...] Info) Description 08/28/2025 1:30 PM EDT Treatment [facility] Occupational Therapy 175 [facility] [address] [place] [address] Nichelle Milian, OT 09/23/2025 3:45 PM EST Office Visit Orthopedic Surgery - [place] 175 [facility] [address] [place] [phone] Bessy Mesa MD [address] [place] [address] documented as of this encounter Visit Diagnoses Not on filedocumented in this encounter Care Teams Paper Products Machine Operator Relationship Specialty Start Date End Date Araceli Augustin PA [address] [facility] [address] [place] [address] PCP - General 11/20/24 documented as of this encounter
--- OUTSIDE RECORDS SUMMARY | 2025-08-21 17:37 | XMS_ITS | Encounter Summary ---
Author Organization [facility] Address [address] [place] [address] Care Team Providers Care City Bus Driver Name Role Phone Tasia Ash MD Primary Care Provider [phone] Jewel Manzano MD Unavailable [phone] Jalil Paulson MD Unavailable Unavailable Encounter Details Date Type Department Care Team Description 01/12/2024 Pt. Non Urgent Medic al Question Gastroenterology - [place] 175 [facility] [address] [place] [address] Rajan Sanders PA-C Social History Tobacco Use [...] encounter Miscellaneous Notes * Telephone Encounter - Haritha Bal M.A. - 01/12/2024 8:22 AM ESTFrom: María Phillips To: Hector Sanders Sent: 01/12/2024 7:50 AM EST Subject: Question regarding MRI OF ABDOMEN Please refer to the message I sent you last night. You let me know about the MRI, but did not address that message documented in this encounter Plan of Treatment Not on file documented as of this encounter Visit Diagnoses Not on filedocumented in this encounter Care Teams City Bus Driver Relationship Specialty Start Date End Date Tasia Ash MD [address] [place] [address] PCP - General Internal Medicine 04/27/23 Jewel Manzano MD [address] [address] ORTHOPEDIC SURGERY 07/14/23 Jalil Paulson MD [address] [address] Ophthalmology 11/09/23 06/02/24 Brimer Specialist Rheumatology 11/09/23 Trivedi Specialist PAIN MANAGEMENT 12/18/23 Tallat Specialist Rheumatology 06/03/24 [facility] neurology Specialist Neurology 06/03/24 [place] Specialist Optometry 06/03/24 documented as of this encounter
--- OUTSIDE RECORDS SUMMARY | 2025-08-21 17:37 | XMS_ITS | Patient Health Record ---
[facility] [address] Address [address] [place] [address] Care Team Providers Care Chapter Relations Administrator Name Role Phone IKER ROBLERO Unavailable [phone] CHINO YBARRA Unavailable [phone] Normoylmason Sneha Unavailable [phone] Allergies Allergen (clinical drug ingredient) Drug/Non Drug Allergy documented on EMR Reaction Allergy Type Onset Date Status Macrolides and Ketolides hives Drug Allergy Active Results Component Value Reference Range Notes URINALYSIS WITH REFLEX MICRO SCOPIC AND CULTURE Reviewed date:03/24/2025 07:44:34 AM Interpretation: Performing Lab: Notes/Report: Specific [place] Urine 1.010 1.003-1.030 pH, Urine 8.0 5.0-8.0 [...] Interpretation: Performing Lab: Notes/Report: Note See Note [facility], a member of [facility] Patient Name: MARÍA PHILLIPS Date of : 1965 Reason for Exam: pain Exam Date: 03/11/2025 [id number] EST Report Status: Final Ordering Provider: DAVID [...] Mauro Wright Reviewed and Electronically Signed By: Maruo Wright Signed Date: 025 11:03 ET Workstation ID: [id number] Transcribed By: Self Edit Transcribed Date: 03/11/2025 11:02 ET BORRELIA BURGDORFERI ANTIBOD Y Reviewed date:12/06/2024 12:06:22 PM Interpretation: Performing Lab: Notes/Report: Lyme Ab Negative Negative No laboratory evidence of infection with B. burgdorferi (Lyme disease). Negative results may occur in patients recently infected (<=14 days) with B. burgdorferi. If recent infection is suspected, repeat testing on a new sample collected in 7-14 days is recommended. CULTURE WOUND DEEP Reviewed date:07/21/2025 01:17:57 PM Interpretation: Performing Lab: Notes/Report: Culture, Wound No growth at 3 days Gram Stain Result No polymorphonuclear leukocytes, No epithelial cells, and No organisms noted TISSUE EXAM Reviewed date:07/20/2025 07:42:46 PM Interpretation: [...] is preferred specimen for evaluating avascular necrosis. TSH Rfx on Abnormal to Free [id number] Reviewed date:07/15/2025 03:58:09 PM Interpretation: Performing Lab:[facility] [place], [address] [facility], Phone - [phone], Director - MDJodry Notes/Report: TSH 0.436 0.450-4.500 uIU/mL T4,Free (Direct) 1.14 0.82-1.77 ng/dL Comp. Metabolic Panel (14)-3 Reviewed date:07/15/2025 08:25:45 AM Interpretation: Performing Lab:[facility] [place], [address] [facility], [place], Phone - [phone], Director - MDJodry Notes/Report: Glucose 75 70-99 [...] (SGPT) 22 0-32 IU/L CBC With Differential/Platel et-[id number] Reviewed date:07/15/2025 08:25:37 AM Interpretation: Performing Lab:[facility], [address] [facility], Phone - [phone], Director - MDJodry Notes/Report: WBC 7.7 3.4-10.8 x10E3/uL RBC 3.91 [...] % Immature Grans (Abs) 0.0 0.0-0.1 x10E3/uL Ferritin-[id number] Reviewed date:07/15/2025 08:25:45 AM Interpretation: Performing Lab:[facility], [address] [facility], [place], Phone - [phone], Director - Elsa Notes/Report: Ferritin 85 15-150 ng/mL Iron and TIBC-[id number] Reviewed date:07/15/2025 03:58:09 PM Interpretation: Performing Lab:[facility], [address], [place], Phone - [phone], Director - Elsa Notes/Report: Iron Bind.Cap.(TIBC) 371 [...] 10% NB formalin fixed and paraffin embedded. CREATINE KINASE Reviewed date:03/24/2025 07:44:57 AM Interpretation: Performing Lab: Notes/Report: Total CK 87 22-269 unit/L CAIMLO IFA WITH TITER AND GIOVANNA RN Reviewed date:11/01/2024 07:38:11 AM Interpretation: Performing Lab: Notes/Report: CAMILO Negative Negative XR KNEE 4+ VIEWS BILAT Reviewed date:08/19/2025 08:27:06 AM Interpretation: Performing Lab: Notes/Report: Note See Note [facility], a member of [facility] Patient Name: MARÍA PHILLIPS Date of : 1965 Reason for Exam: bilateral knee pain Exam Date: 08/14/2025 [id number] EST Report Status: Final Ordering Provider: CELIA ROMO PCP: IKER ROBLERO 4 views weightbearin g of bilateral knees obtained today reviewed including AP, Gomez, later alanitha. Left knee x-rays rubén w mild to moderate degenerative changes involving the medial and lateral compartments including partial joint space narrowing, small marginal osteophytes, subchondral sclerosis, more moderate degenerative change involving patellofemoral compartment. Loose body within the intercond ylar notch. Evidence of prior tibial tunnel and lateral Endobutton a bout the distal lateral femur. No significant effusion. Neutral alignment. Degenerative changes have not progressed from prior x-rays obtained 01/22/2025. Right knee x-rays sh ow mild degenerative changes of the medial, lateral, patellofemoral compartments including partial joint space narrowing, small marginal space, subchondral sclerosis. No significant effusion. Neutral alignment. Degenerat aashish changes have not progressed from prior x-rays obtained 01/22/2025. CULTURE ANAEROBIC WITH GRAM STAIN Reviewed date:07/24/2025 09:25:59 AM Interpretation: Performing Lab: Notes/Report: rifAMPin Susc Islt 0.5 S Tetracycline Islt ABBEY 1 S Vancomycin Susc Islt 1 S The organism value for this result has been updated. These results have been appended to the previously preliminary verified report. SPARSE Clindamycin Susc Islt 0.25 S Bacillus species,not anthracis Erythromycin Susc Islt 8 R This is an edited result. Previous organism was Gram Positive Cocci on 07/20/2025 at 0832 EDT. levoFLOXacin Islt ABBEY 0.12 S The organism value for this result has been updated. These results have been appended to the previously preliminary verified report. Ciprofloxacin Islt ABBEY 0.5 S Susceptibility testing not routinely performed. If further therapeutic information is required, please consult an infectious disease specialist. Gentamicin Islt ABBEY 0.5 S Oxacillin Susc Islt 0.25 S SPARSE This is an appended report. These results have been appended to a previously preliminary verified report. Streptococcus viridans group Penicillin G IgG-mCnc S Edited result: Previously reported as Gram Positive Cocci on 07/20/2025 at 0832 EDT. The organism value for this result has been updated. These results have been appended to the previously preliminary verified report. Antibiotics ABBEY Interpretation Beta-lactamase negative Organism: STAPHYLOCOCCUS WARNERI SPARSE Specimen Source: Swab Collected: Jul 16, 2025 13:40:00 Staphylococcus warneri Gram Stain Result Refer to Aerobic cul ture for gram stain results. Culture, Anaerobic No Growth of Anaerobes. Culture, Anaerobic STAPHYLOCOCCUS WARNERI Culture, Anaerobic STREPTOCOCCUS VIRIDA NS GROUP Culture, Anaerobic BACILLUS SPECIES, NO T ANTHRACIS Report Susceptibility Report XR WRIST 3+ VIEWS RIGHT Reviewed date:08/13/2025 08:18:07 AM Interpretation: Performing Lab: Notes/Report: Note See Note [facility], a member of [facility] Patient Name: MARÍA PHILLIPS Date of : 1965 Reason for Exam: right wrist pain Exam Date: 08/12/2025 [id number] EST Report Status: Final Ordering Provider: DUC [...] Impression: Advanced avascular necrosis of the lunate CT CHEST WO CONTRAST Reviewed date:06/03/2025 12:20:20 PM Interpretation: Performing Lab: Notes/Report: Note See Note [facility], a member of [facility] Patient Name: MARÍA PHILLIPS Date of : 1965 Reason for Exam: PULMONARY NODULE Exam Date: 05/28/2025 [id number] EST Report Status: Final Ordering Provider: IKER ROBLERO PCP: IKER ROBLERO History: Pulmonary nodule follow-up. Comparison: 12/05/24 Technique: Helical volumetric imaging of the thorax was performed without IV contrast. DLP: 279.09 mGy/cm [id number] Iterative reconstruc tion technique Findings: The trachea [...] 2. No developing thoracic lymphadenopathy. Telerad PA ([id number]) -------- FINAL REPOR T -------- Dictated By: Dayami Walker i Dictated Date: 06/02/2025 09:00 ET Assigned Physician: Dayami Diehl Reviewed and Electronically Signed By: Dayami Diehl Signed Date: 025 09:13 ET Workstation ID: [id number] Transcribed By: Self Edit Transcribed Date: 06/02/2025 09:00 ET FERRITIN Reviewed date:03/05/2025 07:31:08 PM Interpretation: [...] Interpretation: Performing Lab: Notes/Report: Note See Note [facility], a member of [facility] Patient Name: MARÍA PHILLIPS Date of : 1965 Reason for Exam: ENLARGED LYMPHNODE Exam Date: 02/08/2025 [id number] EST Report Status: Final Ordering Provider: CHINO [...] Signed Date: 025 15:55 ET Workstation ID: [id number] Transcribed By: Self Edit Transcribed Date: 02/08/2025 15:52 ET MG MAMMO DIGITAL SCREENING W HERACLIO BILAT Reviewed date:02/06/2025 11:57:46 AM Interpretation: Performing Lab: Notes/Report: Note See Note [facility], a member of [facility] Patient Name: MARÍA PHILLIPS Date of : 1965 Reason for Exam: SCREENING Exam Date: 02/05/2025 [id number] EST Report Status: Final Ordering Provider: IKER [...] is recommended in 1 year. Mammo Location: [facility] at [facility], [address] [place] [address], [id number], . -------- FINAL REPOR T -------- Dictated By: Stefani Zamora Dictated Date: 02/06/2025 09:43 ET Assigned Physician: Stefani Zamora Reviewed and Electronically Signed By: Stefani Zamora Signed Date: 025 09:45 ET Workstation ID: [id number] Transcribed By: Self Edit Transcribed Date: 02/06/2025 09:43 ET XR FLUORO UP TO 1 HOUR Reviewed date:02/04/2025 05:11:16 PM Interpretation: Performing Lab: Notes/Report: Note See Note [facility], a member of [facility] Patient Name: MARÍA PHILLIPS Date of : 1965 Reason for Exam: pain Exam Date: 02/04/2025 [id number] EST Report Status: Final Ordering Provider: DAVID [...] Signed Date: 025 12:53 ET Workstation ID: [id number] Transcribed By: Self Edit Transcribed Date: 02/04/2025 12:[address] SINUSES WO CONTRAST Reviewed date:01/24/2025 12:18:38 PM Interpretation: Performing Lab: Notes/Report: Note See Note [facility], a [facility] Patient Name: MARÍA PHILLIPS Date of : 1965 Reason for Exam: deviated septum,sinonasal polyp Exam Date: 01/24/2025 [id number] EST Report Status: Final Ordering Provider: EDMUND [...] Signed Date: 025 08:42 ET Workstation ID: [id number] Transcribed By: Self Edit Transcribed Date: 01/24/2025 08:15 ET US HEAD NECK SOFT TISSUE Reviewed date:01/24/2025 01:16:29 PM Interpretation: Performing Lab: Notes/Report: Note See Note [facility], a member of [facility] Patient Name: MARÍA PHILLIPS Date of : 1965 Reason for Exam: cervicalgia Exam Date: 01/24/2025 [id number] EST Report Status: Final Ordering Provider: CHINO YBARRA PCP: IKER ROBLERO [facility]: Pain. Symptoms for [...] Signed Date: 025 08:00 ET Workstation ID: [id number] Transcribed By: Self Edit Transcribed Date: 01/24/2025 07:55 ET XR KNEE 4+ VIEWS BILAT Reviewed date:01/27/2025 08:06:07 AM Interpretation: Performing Lab: Notes/Report: Note See Note [facility], a member of [facility] Patient Name: MARÍA PHILLIPS Date of : 1965 Reason for Exam: ilateral knee pain Exam Date: 01/22/2025 [id number] EST Report Status: Final Ordering Provider: CELIA [...] intercondylar notch. No seeming effusion. Neutral alignment. Anti-La (SS-B) Ab (RDL)-5203 20 Reviewed date:02/11/2025 07:42:47 AM Interpretation: Performing Lab:[address], Phone - [phone], Director - Elsa Notes/Report: and Drug Administration. by [employer]. It has not been cleared or approved by the Food was developed and its performance characteristics determined Test(s) 318010-Yslu-Xu-9 Ab (RDL) Anti-La (SS-B) Ab (RDL) <20 <20 Units Negative: <20 Weak Positive: 20-39 Moderate Positive: 40-80 Strong Positive: >80 Anti-Sm Ab (RDL)-538682 Reviewed date:02/11/2025 07:42:50 AM Interpretation: Performing Lab:[address], Phone - [phone], Director - Elsa Notes/Report: Test(s) 196365-Vxeu-Bf-9 Ab (RDL) was developed and its performance characteristics determined by [facility]. It has not been cleared or approved by the Food and Drug Administration. Anti-Sm Ab (RDL) <20 <20 Units Negative: <20 Weak Positive: 20-39 Moderate Positive: 40-80 Strong Positive: >80 Anti-Ro (SS-A) Ab (RDL)-5200 10 Reviewed date:02/11/2025 07:42:55 AM Interpretation: Performing Lab:[address], Phone - [phone], Director - Elsa Notes/Report: Test(s) 084163-Jqoe-Nu-6 Ab (RDL) was developed and its performance characteristics determined by [facility]. It has not been cleared or approved by the Food and Drug Administration. Anti-Ro (SS-A) Ab (RDL) <20 <20 Units Negative: <20 Weak Positive: 20-39 Moderate Positive: 40-80 Strong Positive: >80 Anti-Mi-2 Ab (RDL)-690893 Reviewed date:02/11/2025 07:42:59 AM Interpretation: Performing Lab:[facility] [place], [address] [place] [address], [place], Phone - [phone], Director - [facility] Notes/Report: Test(s) 308105-Ykmn-Hb-8 Ab (RDL) was developed and its performance characteristics determined by [facility]. It has not been cleared or approved by the Food and Drug Administration. Anti-Mi-2 Ab (RDL) Negative Negative Comp. Metabolic Panel (14)-3 41345 Reviewed date:02/11/2025 07:43:25 AM Interpretation: Performing Lab:[facility] [place], [address] [place] [address], [place], Phone - [phone], Director - [facility] Notes/Report: Test(s) 765312-Eeqr-Eh-9 Ab (RDL) was developed and its performance [...] 0-40 IU/L ALT (SGPT) 13 0-32 IU/L Chyx-Yu-5-450533 Reviewed date:02/11/2025 07:43:02 AM Interpretation: Performing Lab:[facility] [place], Phone - [phone], Director - [facility] Notes/Report: Test(s) 829183-Lpbn-Gf-8 Ab (RDL) was developed and its performance characteristics determined by [facility]. It has not been cleared or approved by the Food and Drug Administration. Anti-Lakisha-1 <0.2 0.0-0.9 AI Creatine Kinase (CK), MB-120 816 Reviewed date:02/11/2025 07:43:06 AM Interpretation: Performing Lab:[facility] [place], Phone - [phone], Director - [facility] Notes/Report: Test(s) 379795-Gdpt-Vn-6 Ab (RDL) was developed and its performance characteristics determined by [facility]. It has not been cleared or approved by the Food and Drug Administration. Creatine Kinase (CK), MB 1.4 0.0-5.3 ng/mL C-Reactive Protein, Cardiac- 032823 Reviewed date:02/11/2025 07:43:09 AM Interpretation: Performing Lab:[facility] [place], Phone - [phone], Director - [facility] Notes/Report: Test(s) 362589-Aqid-Mv-7 Ab (RDL) was developed and its performance characteristics determined by [facility]. It has not been cleared or approved by the Food and Drug Administration. C-Reactive Protein, Cardiac 1.34 0.00-3.00 mg/L Relative Risk for Future Cardiovascular Event Low <1.00 Average 1.00 - 3.00 High >3.00 Anti-dsDNA Antibodies-566694 Reviewed date:02/11/2025 07:43:13 AM Interpretation: Performing Lab:[facility] [place] [address] [place] [address], [place], Phone - [phone], Director - [facility] Notes/Report: Test(s) 945524-Iqen-Ja-3 Ab (RDL) was developed and its performance characteristics determined by [facility]. It has not been cleared or approved by the Food and Drug Administration. Anti-DNA (DS) Ab Qn 1 0-9 IU/mL Negative <5 Equivocal 5 - 9 Positive >9 Complement C3, Serum-689907 Reviewed date:02/11/2025 07:43:16 AM Interpretation: Performing Lab:[facility], [address] [place] [address], Phone - [phone], Director - [facility] Notes/Report: Test(s) 587264-Egpq-Yf-7 Ab (RDL) was developed and its performance characteristics determined by [facility]. It has not been cleared or approved by the Food and Drug Administration. Complement C3, Serum 119 82-167 mg/dL Sedimentation Rate-Westergre n-301816 Reviewed date:02/11/2025 07:42:43 AM Interpretation: Performing Lab:[facility], [address] [place] [address], Phone - [phone], Director - [facility] Notes/Report: Test(s) 918188-Ygco-Pt-8 Ab (RDL) was developed and its performance characteristics determined by [facility]. It has not been cleared or approved by the Food and Drug Administration. Sedimentation Rate-Westergren 14 0-40 mm/hr Maryan Barnett CMP14 Default A hand-written panel/profile was received from your office. In accordance with the [facility] Ambiguous Test Code Policy dated May 2003, we have completed your order by using the closest currently or formerly recognized AMA panel. We have assigned Comprehensive Metabolic Panel (14), Test Code #248411 to this request. If this is not the testing you wished to receive on this specimen, please contact the [facility] Client Inquiry/Technical Services Department to clarify the test order. We appreciate your business. CBC With Differential/Platel et-594220 Reviewed date:02/11/2025 07:43:32 AM Interpretation: Performing Lab:[facility] [place], [address] [place] [address], Phone - [phone], Director - alton Notes/Report: Test(s) 237382-Zxsq-Ro-7 Ab (RDL) was developed and its performance characteristics determined by [facility]. It has not been cleared or approved [...] Grans (Abs) 0.0 0.0-0.1 x10E3/uL Complement C4, Serum-943713 Reviewed date:02/11/2025 07:43:19 AM Interpretation: Performing Lab:[facility], [address] [place] [address] Avenue, [place], Phone - [phone], Director - Elsa Notes/Report: Test(s) 347431-Jkox-Fn-4 Ab (RDL) was developed and its performance characteristics determined by [employer]. It has not been cleared or approved by the Food and Drug Administration. Complement C4, Serum 18 12-38 mg/dL XR ESOPHAGRAM Reviewed date:01/01/2025 09:27:26 AM Interpretation: Performing Lab: Notes/Report: Note See Note [facility], a member of [employer] Patient Name: MARÍA PHILLIPS Date of : 1965 Reason for Exam: DYSPHAGIA Exam Date: 12/26/2024 [id number] EST Report Status: Final Ordering Provider: BARBARA MORRISSEY PCP: IKER ROBLERO FINDINGS: Double contrast esophagram performed. COMPARISON: Esophagr am March 04, 2022 HISTORY: Patient is a 59-year-old female with history of globus sensation. Epigastric pain. Vice President Safety radiographs: 1 view chest radiograph demonstrates cardiac [...] Signed Date: 025 08:28 ET Workstation ID: [id number] Transcribed By: Self Edit Transcribed Date: 12/26/2024 13:36 ET Resident/PA/PULL WORKER: Lidia Godinez XR CERVICAL SPINE 4-5 VIEWS Reviewed date:11/19/2024 04:14:57 PM Interpretation: Performing Lab: Notes/Report: Note See Note [facility], a member of [employer] Patient Name: MARÍA PHILLIPS Date of : 1965 Reason for Exam: OTHER Exam Date: 11/18/2024 [id number] EST Report Status: Final Ordering Provider: IKER [...] to the prior neck CTA. Telerad PA ([id number]) -------- FINAL REPOR T -------- Dictated By: Dayami Walker i Dictated Date: 11/19/2024 13:40 ET Assigned Physician: Dayami Diehl Reviewed and Electronically Signed By: Dayami Diehl Signed Date: 025 13:45 ET Workstation ID: [id number] Transcribed By: Self Edit Transcribed Date: 11/19/2024 [...] K/mcL Immature Granulocytes Absolute 0.05 0.00-0.03 K/mcL XR HAND 3+ VIEWS RIGHT Reviewed date:05/15/2025 07:58:11 AM Interpretation: Performing Lab: Notes/Report: Note See Note [facility], a member of [employer] Patient Name: MARÍA PHILLIPS Date of : 1965 Reason for Exam: pain Exam Date: 05/14/2025 [id number] EST Report Status: Final Ordering Provider: JOSHUA [...] osteoarthritis of the first carpal-metacarpal articulation. Code 74161, 43028 -------- FINAL REPOR T -------- Dictated By: Mauro Wright Dictated Date: 05/15/2025 07:41 ET Assigned Physician: Mauro Wright Reviewed and Electronically Signed By: Mauro Wright Signed Date: 07:44 ET Workstation ID: [id number] Transcribed By: Self Edit Transcribed Date: 05/15/2025 07:41 ET XR WRIST 3+ VIEWS RIGHT Reviewed date:05/15/2025 07:58:21 AM Interpretation: Performing Lab: Notes/Report: Note See Note [facility], a member of [employer] Patient Name: MARÍA PHILLIPS Date of : 1965 Reason for Exam: Exam Date: 05/14/2025 [id number] EST Report Status: Final Ordering Provider: JOSHUA KAPLAN PCP: IKER ROBLERO Please see combined report with radiographs of the right hand. -------- FINAL REPOR T -------- Dictated By: Mauro Wright Dictated Date: 05/15/2025 07:41 ET Assigned Physician: Mauro Wright Reviewed and Electronically Signed By: Mauro Wright Signed Date: 025 07:41 ET Workstation ID: [id number] Transcribed By: Self Edit Transcribed Date: 05/15/2025 07:41 ET URINALYSIS WITH REFLEX MICRO SCOPIC AND CULTURE Reviewed date:01/21/2025 02:02:02 PM Interpretation: Performing Lab: Notes/Report: Specific [place] Urine 1.034 1.003-1.030 pH, Urine 6.5 5.0-8.0 pH Leukocytes, Urine Negative Negative Nitrite, Urine Negative Negative Protein, Urine Trace <=Trace mg/dL Glucose, Urine Negative Negative mg/dL Ketones, Urine Negative Negative mg/dL Urobilinogen, Urine 0.2 0.2-1.0 mg/dL Bilirubin, Urine Negative Negative Blood, Urine Negative Negative HELICOBACTER PYLORI ANTIGEN, STOOL Reviewed date:08/05/2025 03:02:36 PM Interpretation: Performing Lab: Notes/Report: Helicobacter Pylori Ag Not detected Not detected This test was performed at [facility] using a chemiluminescent immunoassay intended for the [...] Food and Drug Administration. Test performed at [facility], [address] [place] [address] Krystina Austin MD, PhD - Envelope Fold Operator THYROID STIMULATING IMMUNOGL OBULIN Reviewed date:07/29/2025 07:58:42 [...] 0.11 to 0.39 IU/L. Test performed at [facility], [address] , [place] [address] Krystina Austin MD, PhD - Envelope Fold Operator THYROID STIMULATING HORMONE WITH REFLEX TO FREE T4 AND FREE T3 Reviewed date:07/24/2025 02:40:06 PM Interpretation: Performing Lab: Notes/Report: TSH 1.20 0.40-4.00 mcIU/mL TRIIODOTHYRONINE FREE Reviewed date:07/24/2025 02:40:06 PM Interpretation: Performing Lab: Notes/Report: T3, Free 316 230-420 pcg/dL THYROXINE FREE Reviewed date:07/24/2025 02:40:06 PM Interpretation: Performing Lab: Notes/Report: Free T4 1.16 0.70-1.80 ng/dL NM HEPATOBILIARY SYSTEM IMAG ING Reviewed date:05/15/2025 03:07:20 PM Interpretation: Performing Lab: Notes/Report: Note See Note [facility], a member of [employer] Patient Name: MARÍA PHILLIPS Date of : 1965 Reason for Exam: Abdominal pain, upper, recurrent, post cholecystectomy Exam Date: 05/15/2025 [id number] EST Report Status: Final Ordering Provider: ALEXEI [...] hepatobiliary scintigraphy status post cholecystectomy. Telerad TL ([id number]) -------- FINAL REPOR T -------- Dictated By: Dayami Walker i Dictated Date: 05/15/2025 11:46 ET Assigned Physician: Dayami Diehl Reviewed and Electronically Signed By: Dayami Diehl Signed Date: 11:48 ET Workstation ID: [id number] Transcribed By: Self Edit Transcribed Date: 05/15/2025 11:46 ET CALPROTECTIN, STOOL Reviewed date:05/12/2025 05:08:37 PM Interpretation: Performing Lab: Notes/Report: Calprotectin, Fecal 16.5 <50 mcg/g <50 mcg/g Normal 50 - 120 mcg/g Borderline >120 mcg/g Abnormal Borderline results suggest repeat testing in 4 to 6 weeks. Test performed at [facility], [address] , [place] [address] Krystina Austin MD, PhD - Envelope Fold Operator HELICOBACTER PYLORI ANTIGEN, STOOL Reviewed date:05/13/2025 04:03:38 PM Interpretation: Performing Lab: Notes/Report: Helicobacter Pylori Ag DETECTED Not detected This test was performed at [facility] using a chemiluminescent immunoassay intended for the [...] Food and Drug Administration. Test performed at [facility], [address] , [place] [address] Krystina Austin MD, PhD - Envelope Fold Operator HEMOGLOBIN A1C Reviewed date:05/06/2025 03:59:06 PM Interpretation: [...] 3.2-5.0 g/dL Total Bilirubin 0.4 0.0-1.4 mg/dL CBC WITH AUTO DIFFERENTIAL Reviewed date:03/05/2025 07:32:33 [...] K/mcL Immature Granulocytes Absolute 0.03 0.00-0.03 K/mcL XR SHOULDER 2+ VIEWS BILAT Reviewed date:01/08/2025 05:02:44 PM Interpretation: Performing Lab: Notes/Report: Note See Note [facility], a member of [employer] Patient Name: MARÍA PHILLIPS Date of : 1965 Reason for Exam: bilateral shoulder pain Exam Date: 01/08/2025 [id number] EST Report Status: Final Ordering Provider: NICHELLE [...] tendinitis and narro wing of subacromial space EKG (Not yet reviewed by pro vider) Interpretation: Performing Lab: Notes/Report: ECGDiastolicBP 68 ECGHr 73 ECGPRInterval 158 ECGPWaveAxis 34 ECGQRSDuration 78 ECGQrsWaveAxis 33 ECGQTcInterval 404 ECGQTInterval 382 ECGSystolicBP 116 ECGTWaveAxis 31 RR_DiastolicBP 0 RR_MaxRRInterval 0 RR_MeanHR 0 RR_MeanRRInterval 0 RR_MinRRInterval 0 RR_NumBeats 0 RR_NumNormalBeats 0 RR_SystolicBP 0 GASTROINTESTINAL PATHOGENS M OLECULAR STUDY Reviewed date:05/08/2025 03:43:25 PM Interpretation: Performing [...] CLOSTRIDIOIDES DIFFICILE, NO ADDITIONAL TESTING IS NECESSARY. Reason For Referral Reason [facility] Diagnosis 1 Shoulder pain, unspe cified chronicity, unspecified laterality (M25.519) Referral Organization [facility] [address] Referring Provider First Name IKER Referring Provider Last Name [place] Referring Provider Speciality Preventive Medicine Referred Provider Specialty Orthopedic S [facility] General Notes Letitia Cox 025 10:47:57 AM > Referral faxed over to [facility] for Bilateral shoulder pain P. [phone] Referral Priority Routine Reason Sleep Medicine Serv[facility]; sleep study; loud snoring Diagnosis 1 Loud snoring (R06.83 ) Referral Organization [facility] [address] Referring Provider First Name IKER Referring Provider Last Name [place] Referring Provider Speciality Preventive Medicine Referred Provider Specialty Sleep Medici nm General Notes [address] [place] (p) [phone], (f) [phone] Clinical Notes Maryann Cox 02:10:39 PM > [...] First Name IKER Referring Provider Last Name [place] Referring Provider Speciality Preventive Medicine Referred Provider Specialty Pain Medicin e Clinical Notes Zoila Narayanan 04/25 09:57:57 AM > Family Physiatry, Address: [address] [place] [address], , Fax number: , KennyJulien michaelfani 06/17/2025 02:17:36 PM > The patient was scheduled for 06/05 but she no showed and has not rescheduled yet Referral Priority Routine Reason [facility]; easy bruising Diagnosis 1 Easy bruising (R23.3 ) Referral Organization [facility] [address] Referring Provider First Name IKER Referring Provider Last Name [place] Referring Provider [facility] Preventive Medicine Referred Provider Specialty Dermatology General Notes [address], (p) [phone], (f) [phone] Clinical Notes Caren Narayanan 08:43:03 AM > referral faxed with notes Referral Priority Routine Reason Dr. Hoffman Diagnosis 1 Pulmonary nodule (R9 1.1) Diagnosis 2 Centrilobular emphys christine (J43.2) Referral Organization [facility] [address] Referring Provider First Name IKER Referring Provider Last Name [place] Referring Provider Speciality Preventive Medicine Referred Provider Specialty Pulmonology General Notes XAVIER VILLANUEVA 06/09 08:34:07 AM > Referral faxed, Dr Hoffman - Pulmonology and Sleep Medicine, [address] [place] [address], , Clinical Notes Maryann Cox 10/2025 02:17:04 PM > The patient was scheduled for 06/05 but she no showed and has not rescheduled yet Referral Priority Routine Reason [facility] Diagnosis 1 Chronic pain syndrom e (G89.4) Diagnosis 2 Cervical pain (M54.2 ) Referral Organization [facility] [address] Referring Provider First Name IKER Referring Provider Last Name [place] Referring Provider Speciality Preventive Medicine Referred Provider Specialty Orthopedic S urgery General Notes VILLANUEVA, XAVIER 06/26 08:13:11 AM > Referral has been faxed, [facility], [address], [place] [address], , Clinical Notes Maryann Cox 02:25:30 PM > I called the office, and they informed me they had reached out to the patient multiple times with no response. I then spoke with the patient, who stated she was not aware a referral had been sent. She said she will call the office back Referral Priority Stat Reason Spine Surgery - [facility] Diagnosis 1 Lumbar back pain (M5 4.50) Diagnosis 2 Chronic lumbar radic ulopathy (M54.16) Referral Organization [facility] [address] Referring Provider First Name IKER Referring Provider Last Name [place] Referring Provider Speciality Preventive Medicine Referred Provider Specialty Spinal Cord Injury Medicine General Notes VILLANUEVAXAVIER 07/08 03:54:08 PM > referral has been initiated & faxed, [facility] [address], [address], [place], , Most recent [place] was done [place] [facility] [place] Clinical Notes Maryann Cox 01/2025 02:17:15 PM > I called [facility] [place], and they are requesting [...] Status W/U Status Risk Notes Problem Hyperkalemia (47363609) Hyperkalemia (E87.5) Active confirmed Problem Chronic pain syndrome (832557750) Chronic pain syndrome (G89.4) Active confirmed Problem Centrilobular emphysema (09570348) Centrilobular emphysema (J43.2) Active confirmed Problem Pulmonary nodule (590441426) Pulmonary nodule (R91.1) Active confirmed Problem Breathing painful (01453850) Rib pain on right side (R07.81) Active confirmed Problem Tremor (65239818) Tremor (R25.1) Active confirm ed Problem Chronic fatigue syndrome (94287678) Chronic fatigue (R53.82) Active confirmed Problem Paresthesia (finding) (79239377) Paresthesias (R20.2) Active confirmed Problem Lumbar radiculopathy (349678186) Chronic lumbar radiculopathy (M54.16) Active confirmed Problem Cervical pain (75007073) Cervical pain (M54.2) Active confirmed Problem Mixed anxiety and depressive disorder (139864671) Depression with anxiety (F41.8) Active confirmed Problem 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 Problem Inactive tuberculosis (finding) (49999030) History of latent tuberculosis (Z86.15) Active confirmed Problem Rheumatoid arthritis (74653256) Rheumatoid arthritis involving multiple sites, unspecified whether rheumatoid factor present (M06.9) Active confirmed Problem Rheumatoid arthritis (80752685) Rheumatoid arthritis involving multiple sites with positive rheumatoid factor (M05.79) Active confirmed Problem Lymphadenopathy (14515815) Lymphadenopathy, axillary (R59.0) Active confirmed Problem Cervical spondylosis (956386865) Cervical spondylosis (M47.812) Active confirmed Problem General weakness (81144709) Generalized weakness (R53.1) Active confirmed Problem 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 Vital Signs Heart Rate 92 /min 06/18/2025 Blood pressure diastolic 84 mm Hg 06/18/2025 Oximetry 97 % 06/18/2025 Height 61 in 06/18/2025 Blood pressure systolic 130 mm Hg 06/18/2025 Weight 162.2 lbs 06/18/2025 BMI 30.64 kg/m2 06/18/2025 Encounters Encounter Location Date Provider Diagnosis [facility] [address] [address] 10/28/2024 IKER LEDESMAHAM Rheumatoid arthritis involving multiple sites, unspecified whether rheumatoid factor present M06.9 ; Tremor R25.1 ; Slipped rib syndrome M94.0 ; History of latent tuberculosis Z86.15 ; Depression with anxiety F41.8 and Rock's disease E06.3 [facility] [address] [address] 11/18/2024 IKER LEDESMAHAM Tremor R25.1 ; Cervi veronica spondylosis M47.812 ; Rock's disease E06.3 ; Pain in right arm M79.601 ; Pain in left arm M79.602 ; History of recent fall Z91.81 ; Rheumatoid arthritis involving multiple sites with positive rheumatoid factor M05.79 ; Slipped rib syndrome M94.0 and Depression with anxiety F41.8 [facility] [address] [address] 01/22/2025 CHINO BIRKS Neck pain on right s angela M54.2 ; Rheumatoid arthritis involving multiple sites with positive rheumatoid factor M05.79 ; Slipped rib syndrome M94.0 ; Rock's disease E06.3 and Depression with anxiety F41.8 [facility] [address] [address] 02/03/2025 CHINO BIRKS Lymphadenopathy, axillary R59.0 ; Rheumatoid arthritis involving multiple sites, unspecified whether rheumatoid factor present M06.9 ; Rock's disease E06.3 ; Slipped rib syndrome M94.0 ; Anxiety, generalized F41.1 and Tendon calcification M65.80 [facility] [address] [address] 03/05/2025 IKER ANNIKA Rib pain on right si de R07.81 ; Annual physical exam Z00.00 ; Chronic fatigue R53.82 ; Hyperkalemia E87.5 ; Slipped rib syndrome M94.0 ; Depression with anxiety F41.8 and Rheumatoid arthritis involving multiple sites with positive rheumatoid factor M05.79 [facility] [address] [address] 03/21/2025 IKER ROBLERO Heart palpitations R00.2 ; Weakness R53.1 and Dyspnea on exertion R06.09 [facility] [address] [address] 04/23/2025 IKER ROBLERO Depression with anxi ety F41.8 ; Heavy alcohol use F10.90 ; Chronic pain syndrome G89.4 ; Slipped rib syndrome M94.0 ; Rheumatoid arthritis involving multiple sites with positive rheumatoid factor M05.79 ; Pulmonary nodule R91.1 ; History of latent tuberculosis Z86.15 and Loud snoring R06.83 [facility] [address] 05/05/2025 IKER ROBLERO Spontaneous ecchymos es R23.3 ; Skin tear of left upper extremity S41.112A ; Irregular bowel habits R19.8 ; Depression with anxiety F41.8 ; Chronic pain syndrome G89.4 and Rheumatoid arthritis involving multiple sites with positive rheumatoid factor M05.79 [facility] [address] [address] 06/18/2025 IKER [place] Chronic pain syndrom e G89.4 ; Cervical pain M54.2 and Recurrent low back pain M54.50 [facility] [address] [address] 10/29/2024 [facility] [address] [address] [facility] [address] [address] 11/07/2024 [facility] [address] [facility] [address] [address] 11/19/2024 IKER [place] [facility] [address] [facility] [address] [address] 12/03/2024 IKER [place] [facility] [address] [address] 12/13/2024 [facility] [address] [address] 12/13/2024 IKER ROBLERO Generalized weakness R53.1 and Paresthesias R20.2 [facility] [address] [place] [address] 12/16/2024 IKER [place] [facility] [address] [place] [address] 12/26/2024 [place]KER [place] [facility] [address] [place] [address] 12/31/2024 [place]KER [place] [facility] [address] [place] [address] 01/02/2025 IKER [place] [facility] [address] [place] [address] 01/07/2025 [place]KER [place] [facility] [address] [place] [address] 01/21/2025 IKER [place] [facility] [address] [place] [address] 01/24/2025 [place]KER [place] [facility] [address] [place] [address] 02/03/2025 IKER [place] [facility] [address] [place] [address] 02/03/2025 [place]KER [place] [facility] [address] [place] [address] 02/10/2025 [place]KER [place] [facility] [address] [place] [address] 03/05/2025 IKER LEDESMAHAM Chronic fatigue R53. 82 ; Elevated lipids E78.5 ; Anemia due to vitamin B12 deficiency, unspecified B12 deficiency type D51.9 and Vitamin D deficiency E55.9 [facility] [address] [place] [address] 03/05/2025 [place] [facility] [address] [place] [address] 03/05/2025 [place]KER [place] [facility] [address] [place] [address] 03/05/2025 [place]KER [place] [facility] [address] [place] [address] 03/21/2025 [place]ER [place] [facility] [address] [place] [address] 03/24/2025 [place]KER [place] [facility] [address] [place] [address] 04/22/2025 [place]ER [place] [facility] [address] [place] [address] 04/25/2025 [place]KER [place] [facility] [address] [place] [address] 05/01/2025 [place]ER [place] [facility] [address] [place] [address] 05/05/2025 [place]KER [place] [facility] [address] [place] [address] 05/06/2025 [place]KER [place] [facility] [address] [place] [address] 05/13/2025 [place]KER [place] [facility] [address] [place] [address] 05/13/2025 IKER [place] [facility] [address] [place] [address] 06/03/2025 IKER [place] [facility] [address] [place] [address] 06/18/2025 [place]KER [place] [facility] [address] [place] [address] 06/19/2025 IKER [place] Cervical pain M54.2 ; Cervical spondylosis M47.812 and Chronic pain syndrome G89.[address] [facility] [address] [place] [address] 06/25/2025 IKER [place] [facility] [address] [place] [address] 07/08/2025 [place]KER [place] [facility] [address] [place] [address] 07/08/2025 [place]KER [place] [facility] [address] [place] [address] 07/09/2025 [place]KER [place] [facility] [address] [place] [address] 07/15/2025 IKER LEDESMAHAM Rock's disease E06.3 [facility] [address] [place] [address] 08/14/2025 IKER [place] [facility] [address] [place] [address] 12/09/2024 IKER [place] [facility] [address] [place] [address] 12/13/2024 IKER [place] [facility] [address] [place] [address] 12/14/2024 IKER [place] [facility] [address] [place] [address] 12/14/2024 IKER [place] [facility] [address] [place] [address] 12/15/2024 IKER [place] [facility] [address] [place] [address] 12/18/2024 IKER [place] [facility] [address] [place] [address] 01/01/2025 IKER [place] [facility] [address] [place] [address] 01/21/2025 IKER [place] [facility] [address] [place] [address] 01/27/2025 IKER [place] Breast cancer screen ing by mammogram Z12.31 [facility] [address] [place] [address] 03/21/2025 IKER [place] [facility] [address] [place] [address] 04/30/2025 IKER [place] [facility] [address] [place] [address] 05/01/2025 IKER [place] [facility] [address] [place] [address] 05/01/2025 IKER [place] [facility] [address] [place] [address] 06/06/2025 IKER [place] [facility] [address] [place] [address] 06/09/2025 IKER [place] [facility] [address] [address] 06/14/2025 [facility] [address] [address] 06/20/2025 IKER [place] [facility] [address] [facility] [address] [place] [address] 06/23/2025 [facility] [address] [address] 06/30/2025 IKER [place] [facility] [address] [address] 07/12/2025 [facility] Adult general medica l exam Z00.00 and Screening for thyroid disorder Z13.29 [facility] [address] [address] 07/15/2025 IKER [place] [facility] [address] [address] 07/16/2025 [facility] Assessments Encounter Date Diagnosis (ICD Code) Assessment [...] Patient reports history of RA. Follows with signal tower operator Dr. Clark out of [place]. Has been treated previously with Humira, Enbrel, [...] was diagnosed by Dr. Dubon out of [place], [place]. Taking methocarbamol 750 mg 3 times [...] reviewed. Dictation completed with the use of [employer] voice recognition software, prone to medical misidentifications [...] Patient reports history of RA. Follows with signal tower operator Dr. Clark out of [place]. Has been treated previously with Humira, Enbrel, [...] was diagnosed by Dr. Dubon out of [place], [place]. Taking methocarbamol 750 mg 3 times [...] reviewed. Dictation completed with the use of [employer] voice recognition software, prone to medical misidentifications [...] for 11/20/2024. #Recent fall: Patient seen at [facility] ED 11/02/2024 s/p fall at work. [...] diffuse joint pain and fatigue. Follows with signal tower operator Dr. Clark out of [place], records requested and not yet available for my review. 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 States this was diagnosed by Dr. Dubon out of [place], [place]. Taking methocarbamol 750 mg 3 times [...] reviewed. Dictation completed with the use of [employer] voice recognition software, prone to medical misidentifications [...] for 11/20/2024. #Recent fall: Patient seen at [facility] ED 11/02/2024 s/p fall at work. [...] diffuse joint pain and fatigue. Follows with signal tower operator Dr. Clark out of [place], records requested and not yet available for my review. 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 States this was diagnosed by Dr. Dubon out of [place], [place]. Taking methocarbamol 750 mg 3 times [...] reviewed. Dictation completed with the use of [employer] voice recognition software, prone to medical misidentifications [...] was diagnosed by Dr. Dubon out of [place], [place]. Taking methocarbamol 750 mg 3 times [...] Dictation was accomplished with the use of [employer] voice recognition software, which is prone to [...] was diagnosed by Dr. Dubon out of [place]. Taking methocarbamol 750 mg 3 times [...] Dictation was accomplished with the use of [employer] voice recognition software, which is prone to [...] was diagnosed by Dr. Dubon out of [place], [place]. Taking methocarbamol 750 mg 3 times [...] Dictation was accomplished with the use of [employer] voice recognition software, which is prone to [...] was diagnosed by Dr. Dubon out of [place], [place]. Taking methocarbamol 750 mg 3 times [...] Dictation was accomplished with the use of [employer] voice recognition software, which is prone to [...] rib syndrome: Follows with Dr. Dubon with [facility]. Underwent repair 12/17/2024. #Ventral hernia: Surgical [...] arthritis: + Rheumatoid factor (152). Follows with signal tower operator Dr. Joshua Kaplan out of [place]. Follow-up labs including CAMILO, ESR/CRP, and comprehensive [...] Follows with psychiatric provider Clarice Lara with [facility]. Taking clonazepam 0.5 mg once daily [...] dysfunction. #Hyperkalemia: Patient reports she was at [facility] ED recently at which time her [...] reviewed. Dictation completed with the use of [employer] voice recognition software, prone to medical misidentifications [...] rib syndrome: Follows with Dr. Dubon with [facility]. Underwent repair 12/17/2024. #Ventral hernia: Surgical [...] arthritis: + Rheumatoid factor (152). Follows with signal tower operator Dr. Joshua Kaplan out of [place]. Follow-up labs including CAMILO, ESR/CRP, and comprehensive [...] Follows with psychiatric provider Clarice Lara with [facility]. Taking clonazepam 0.5 mg once daily [...] dysfunction. #Hyperkalemia: Patient reports she was at [facility] ED recently at which time her [...] reviewed. Dictation completed with the use of [employer] voice recognition software, prone to medical misidentifications and grammatical errors. All errors are unintentional. Although the practitioner does try to identify and correct errors, some may be present. Please do not hesitate to contact the practitioner for clarification. Total time was 60 minutes spent with >50% on coordination of care and patient education. 03/05/2025 Chronic fatigue (ICD-10 - R53.82) 04/23/2025 Depression with anxiety (ICD-10 - F41.8) María is a 59-year-old female with a PMH of RA, slipped rib syndrome, chronic pain that presents today for ER follow-up hospital follow-up. María presented to [facility] ED 04/19/2025 with chief complaint of [...] taking any pain medication. Previously followed with auto body painter Dr. Trivedi who provided steroid injections. [...] with added opioid use. WIll refer to auto body painter with goal of establishing safe pain management regimen. #RA: Follows with Joshua Kaplan MD out of [place]. Discussed possibility of chronic pain being related [...] reviewed. Dictation completed with the use of [employer] voice recognition software, prone to medical misidentifications [...] ER follow-up hospital follow-up. María presented to [facility] ED 04/19/2025 with chief complaint of [...] taking any pain medication. Previously followed with auto body painter Dr. Trivedi who provided steroid injections. [...] with added opioid use. WIll refer to auto body painter with goal of establishing safe pain management regimen. #RA: Follows with Joshua Kaplan MD out of [place]. Discussed possibility of chronic pain being related [...] reviewed. Dictation completed with the use of [employer] voice recognition software, prone to medical misidentifications [...] Patient requesting urgent colonoscopy per recommendation of [facility] surgeon Jewel Dubon. On review of [...] surgical correction with thoracic surgeon Jewel Dubon DO without resolution of pain. Currently taking gabapentin TID without symptom improvement. Follows with auto body painter Dr. Trivedi. Historically the patient has [...] reviewed. Dictation completed with the use of [employer] voice recognition software, prone to medical misidentifications [...] Patient requesting urgent colonoscopy per recommendation of [facility] surgeon Jewel Dubon. On review of [...] gabapentin TID without symptom improvement. Follows with auto body painter Dr. Trivedi. Historically the patient has [...] reviewed. Dictation completed with the use of [employer] voice recognition software, prone to medical misidentifications [...] TID without significant symptom improvement. Follows with auto body painter Dr. Trivedi, orthopedic provider Nichelle Carrillo [...] reviewed. Dictation completed with the use of [employer] voice recognition software, prone to medical misidentifications [...] TID without significant symptom improvement. Follows with auto body painter Dr. Trivedi, orthopedic provider Nichelle Carrillo [...] reviewed. Dictation completed with the use of [employer] voice recognition software, prone to medical misidentifications and grammatical errors. All errors are unintentional. Although the practitioner does try to identify and correct errors, some may be present. Please do not hesitate to contact the practitioner for clarification. Total time was 60 minutes spent with >50% on coordination of care and patient education. 06/19/2025 Cervical pain (ICD-10 - M54.2) 07/15/2025 Rock's disease (ICD-10 - E06.3) 03/21/2025 Weakness (ICD-10 - R53.1) María is [...] reviewed. Dictation completed with the use of [employer] voice recognition software, prone to medical misidentifications [...] reviewed. Dictation completed with the use of [employer] voice recognition software, prone to medical misidentifications and grammatical errors. All errors are unintentional. Although the practitioner does try to identify and correct errors, some may be present. Please do not hesitate to contact the practitioner for clarification. 07/12/2025 Adult general medical exam (ICD-10 - Z00.00) 07/12/2025 Screening for thyroid disorder (ICD-10 - Z13.29) 03/21/2025 Dyspnea on exertion (ICD-10 - R06.09) [...] reviewed. Dictation completed with the use of [employer] voice recognition software, prone to medical misidentifications and grammatical errors. All errors are unintentional. Although the practitioner does try to identify and correct errors, some may be present. Please do not hesitate to contact the practitioner for clarification. 06/19/2025 Cervical spondylosis (ICD-10 - M47.812) 05/05/2025 Irregular bowel habits (ICD-10 - R19.8) [...] Patient requesting urgent colonoscopy per recommendation of [facility] surgeon Jewel Dubon. On review of [...] gabapentin TID without symptom improvement. Follows with auto body painter Dr. Trivedi. Historically the patient has [...] reviewed. Dictation completed with the use of [employer] voice recognition software, prone to medical misidentifications and grammatical errors. All errors are unintentional. Although the practitioner does try to identify and correct errors, some may be present. Please do not hesitate to contact the practitioner for clarification. Total time was 60 minutes spent with >50% on coordination of care and patient education. 06/18/2025 Recurrent low back pain (ICD-10 - [...] TID without significant symptom improvement. Follows with auto body painter Dr. Trivedi, orthopedic provider Nichelle Carrillo [...] reviewed. Dictation completed with the use of [employer] voice recognition software, prone to medical misidentifications and grammatical errors. All errors are unintentional. Although the practitioner does try to identify and correct errors, some may be present. Please do not hesitate to contact the practitioner for clarification. Total time was 60 minutes spent with >50% on coordination of care and patient education. 03/05/2025 Elevated lipids (ICD-10 - E78.5) 04/23/2025 Chronic pain syndrome (ICD-10 - G89.4) María is a 59-year-old female with a PMH of RA, slipped rib syndrome, chronic pain that presents today for ER follow-up hospital follow-up. María presented to [facility] ED 04/19/2025 with chief complaint of [...] taking any pain medication. Previously followed with auto body painter Dr. Trivedi who provided steroid injections. [...] with added opioid use. WIll refer to auto body painter with goal of establishing safe pain management regimen. #RA: Follows with Joshua Kaplan MD out of [place]. Discussed possibility of chronic pain being related [...] reviewed. Dictation completed with the use of [employer] voice recognition software, prone to medical misidentifications [...] rib syndrome: Follows with Dr. Dubon with [facility]. Underwent repair 12/17/2024. #Ventral hernia: Surgical [...] arthritis: + Rheumatoid factor (152). Follows with signal tower operator Dr. Joshua Kaplan out of [place]. Follow-up labs including CAMILO, ESR/CRP, and comprehensive [...] Follows with psychiatric provider Clarice Lara with [facility]. Taking clonazepam 0.5 mg once daily [...] dysfunction. #Hyperkalemia: Patient reports she was at [facility] ED recently at which time her [...] was diagnosed by Dr. Dubon out of [place], [place]. Taking methocarbamol 750 mg 3 times [...] Dictation was accomplished with the use of [employer] voice recognition software, which is prone to [...] was diagnosed by Dr. Dubon out of [place], [place]. Taking methocarbamol 750 mg 3 times [...] Dictation was accomplished with the use of [employer] voice recognition software, which is prone to [...] for 11/20/2024. #Recent fall: Patient seen at [facility] ED 11/02/2024 s/p fall at work. [...] diffuse joint pain and fatigue. Follows with signal tower operator Dr. Clark out of [place], records requested and not yet available for my review. 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 States this was diagnosed by Dr. Dubon out of [place], [place]. Taking methocarbamol 750 mg 3 times [...] reviewed. Dictation completed with the use of [employer] voice recognition software, prone to medical misidentifications [...] Patient reports history of RA. Follows with signal tower operator Dr. Clark out of [place]. Has been treated previously with Humira, Enbrel, [...] was diagnosed by Dr. Dubon out of [place], [place]. Taking methocarbamol 750 mg 3 times [...] reviewed. Dictation completed with the use of [employer] voice recognition software, prone to medical misidentifications [...] for 11/20/2024. #Recent fall: Patient seen at [facility] ED 11/02/2024 s/p fall at work. [...] diffuse joint pain and fatigue. Follows with signal tower operator Dr. Clark out of [place], records requested and not yet available for my review. 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 States this was diagnosed by Dr. Dubon out of [place], [place]. Taking methocarbamol 750 mg 3 times [...] reviewed. Dictation completed with the use of [employer] voice recognition software, prone to medical misidentifications [...] Patient reports history of RA. Follows with signal tower operator Dr. Clark out of [place]. Has been treated previously with Humira, Enbrel, [...] was diagnosed by Dr. Dubon out of [place], [place]. Taking methocarbamol 750 mg 3 times [...] reviewed. Dictation completed with the use of [employer] voice recognition software, prone to medical misidentifications [...] was diagnosed by Dr. Dubon out of [place], [place]. Taking methocarbamol 750 mg 3 times [...] Dictation was accomplished with the use of [employer] voice recognition software, which is prone to [...] collection. Patient reports recent blood work through [facility] which we will request, otherwise last TSH [...] was diagnosed by Dr. Dubon out of [place], [place]. Taking methocarbamol 750 mg 3 times [...] arise. Case discussed with collaborating physician Lakisha oMrrison who reviewed the assessment and plan. Chart, medications, labs, vital signs reviewed. Dictation was accomplished with the use of [employer] voice recognition software, which is prone to [...] rib syndrome: Follows with Dr. Dubon with [facility]. Underwent repair 12/17/2024. #Ventral hernia: Surgical [...] arthritis: + Rheumatoid factor (152). Follows with signal tower operator Dr. Joshua Kaplan out of [place]. Follow-up labs including CAMILO, ESR/CRP, and comprehensive [...] Follows with psychiatric provider Clarice Lara with [facility]. Taking clonazepam 0.5 mg once daily [...] dysfunction. #Hyperkalemia: Patient reports she was at [facility] ED recently at which time her [...] reviewed. Dictation completed with the use of [employer] voice recognition software, prone to medical misidentifications [...] unspecified B12 deficiency type (ICD-10 - D51.9) 06/19/2025 Chronic pain syndrome (ICD-10 - G89.4) 05/05/2025 Depression with anxiety (ICD-10 - F41.8) [...] Patient requesting urgent colonoscopy per recommendation of [facility] surgeon Jewel Dubon. On review of [...] gabapentin TID without symptom improvement. Follows with auto body painter Dr. Trivedi. Historically the patient has [...] reviewed. Dictation completed with the use of [employer] voice recognition software, prone to medical misidentifications [...] ER follow-up hospital follow-up. María presented to [facility] ED 04/19/2025 with chief complaint of [...] taking any pain medication. Previously followed with auto body painter Dr. Trivedi who provided steroid injections. [...] with added opioid use. WIll refer to auto body painter with goal of establishing safe pain management regimen. #RA: Follows with Joshua Kaplan MD out of [place]. Discussed possibility of chronic pain being related [...] reviewed. Dictation completed with the use of [employer] voice recognition software, prone to medical misidentifications [...] Patient requesting urgent colonoscopy per recommendation of [facility] surgeon Jewel Dubon. On review of [...] gabapentin TID without symptom improvement. Follows with auto body painter Dr. Trivedi. Historically the patient has [...] reviewed. Dictation completed with the use of [employer] voice recognition software, prone to medical misidentifications [...] ER follow-up hospital follow-up. María presented to [facility] ED 04/19/2025 with chief complaint of [...] taking any pain medication. Previously followed with auto body painter Dr. Trivedi who provided steroid injections. [...] with added opioid use. WIll refer to auto body painter with goal of establishing safe pain management regimen. #RA: Follows with Joshua Kaplan MD out of [place]. Discussed possibility of chronic pain being related [...] reviewed. Dictation completed with the use of [employer] voice recognition software, prone to medical misidentifications [...] rib syndrome: Follows with Dr. Dubon with [facility]. Underwent repair 12/17/2024. #Ventral hernia: Surgical [...] arthritis: + Rheumatoid factor (152). Follows with signal tower operator Dr. Joshua Kaplan out of [place]. Follow-up labs including CAMILO, ESR/CRP, and comprehensive [...] Follows with psychiatric provider Clarice Lara with [facility]. Taking clonazepam 0.5 mg once daily [...] dysfunction. #Hyperkalemia: Patient reports she was at [facility] ED recently at which time her [...] reviewed. Dictation completed with the use of [employer] voice recognition software, prone to medical misidentifications [...] was diagnosed by Dr. Dubon out of [place], [place]. Taking methocarbamol 750 mg 3 times [...] Dictation was accomplished with the use of [employer] voice recognition software, which is prone to [...] was diagnosed by Dr. Dubon out of [place], [place]. Taking methocarbamol 750 mg 3 times [...] Dictation was accomplished with the use of [employer] voice recognition software, which is prone to [...] for 11/20/2024. #Recent fall: Patient seen at [facility] ED 11/02/2024 s/p fall at work. [...] diffuse joint pain and fatigue. Follows with signal tower operator Dr. Clark out of [place], records requested and not yet available for my review. 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 States this was diagnosed by Dr. Dubon out of [place], [place]. Taking methocarbamol 750 mg 3 times [...] reviewed. Dictation completed with the use of [employer] voice recognition software, prone to medical misidentifications [...] Patient reports history of RA. Follows with signal tower operator Dr. Clark out of [place]. Has been treated previously with Humira, Enbrel, [...] was diagnosed by Dr. Dubon out of [place], [place]. Taking methocarbamol 750 mg 3 times [...] reviewed. Dictation completed with the use of [employer] voice recognition software, prone to medical misidentifications [...] for 11/20/2024. #Recent fall: Patient seen at [facility] ED 11/02/2024 s/p fall at work. [...] diffuse joint pain and fatigue. Follows with signal tower operator Dr. Clark out of [place], records requested and not yet available for my review. 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 States this was diagnosed by Dr. Dubon out of [place], [place]. Taking methocarbamol 750 mg 3 times [...] reviewed. Dictation completed with the use of [employer] voice recognition software, prone to medical misidentifications [...] Patient reports history of RA. Follows with signal tower operator Dr. Clark out of [place]. Has been treated previously with Humira, Enbrel, [...] was diagnosed by Dr. Dubon out of [place], [place]. Taking methocarbamol 750 mg 3 times [...] seen today. 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 Denies history of levothyroxine use. TSH with reflex T4 ordered. All questions answered to the patient's satisfaction. Patient demonstrates understanding of diagnosis and treatments discussed. Follow-up in 2 to 4 weeks, sooner should any questions/concerns arise. Case discussed with collaborating physician Velia Morrison who has reviewed the assessment/plan. Chart, medications, labs, and vital signs reviewed. Dictation completed with the use of [employer] voice recognition software, prone to medical misidentifications [...] was diagnosed by Dr. Dubon out of [place], [place]. Taking methocarbamol 750 mg 3 times [...] Dictation was accomplished with the use of [employer] voice recognition software, which is prone to [...] rib syndrome: Follows with Dr. Dubon with [facility]. Underwent repair 12/17/2024. #Ventral hernia: Surgical [...] arthritis: + Rheumatoid factor (152). Follows with signal tower operator Dr. Joshua Kaplan out of [place]. Follow-up labs including CAMILO, ESR/CRP, and comprehensive [...] Follows with psychiatric provider Clarice Lara with [facility]. Taking clonazepam 0.5 mg once daily [...] dysfunction. #Hyperkalemia: Patient reports she was at [facility] ED recently at which time her [...] reviewed. Dictation completed with the use of [employer] voice recognition software, prone to medical misidentifications [...] ER follow-up hospital follow-up. María presented to [facility] ED 04/19/2025 with chief complaint of [...] taking any pain medication. Previously followed with auto body painter Dr. Trivedi who provided steroid injections. [...] with added opioid use. WIll refer to auto body painter with goal of establishing safe pain management regimen. #RA: Follows with Joshua Kaplan MD out of [place]. Discussed possibility of chronic pain being related [...] reviewed. Dictation completed with the use of [employer] voice recognition software, prone to medical misidentifications [...] Patient requesting urgent colonoscopy per recommendation of [facility] surgeon Jewel Dubon. On review of [...] gabapentin TID without symptom improvement. Follows with auto body painter Dr. Trivedi. Historically the patient has [...] reviewed. Dictation completed with the use of [employer] voice recognition software, prone to medical misidentifications [...] ER follow-up hospital follow-up. María presented to [facility] ED 04/19/2025 with chief complaint of [...] taking any pain medication. Previously followed with auto body painter Dr. Trivedi who provided steroid injections. [...] with added opioid use. WIll refer to auto body painter with goal of establishing safe pain management regimen. #RA: Follows with Joshua Kaplan MD out of [place]. Discussed possibility of chronic pain being related [...] reviewed. Dictation completed with the use of [employer] voice recognition software, prone to medical misidentifications [...] rib syndrome: Follows with Dr. Dubon with [facility]. Underwent repair 12/17/2024. #Ventral hernia: Surgical [...] arthritis: + Rheumatoid factor (152). Follows with signal tower operator Dr. Joshua Kaplan out of [place]. Follow-up labs including CAMILO, ESR/CRP, and comprehensive [...] Follows with psychiatric provider Clarice Lara with [facility]. Taking clonazepam 0.5 mg once daily [...] dysfunction. #Hyperkalemia: Patient reports she was at [facility] ED recently at which time her [...] reviewed. Dictation completed with the use of [employer] voice recognition software, prone to medical misidentifications [...] for 11/20/2024. #Recent fall: Patient seen at [facility] ED 11/02/2024 s/p fall at work. [...] diffuse joint pain and fatigue. Follows with signal tower operator Dr. Clark out of [place], records requested and not yet available for my review. 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 States this was diagnosed by Dr. Dubon out of [place], [place]. Taking methocarbamol 750 mg 3 times [...] reviewed. Dictation completed with the use of [employer] voice recognition software, prone to medical misidentifications [...] for 11/20/2024. #Recent fall: Patient seen at [facility] ED 11/02/2024 s/p fall at work. [...] diffuse joint pain and fatigue. Follows with signal tower operator Dr. Clark out of [place], records requested and not yet available for my review. 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 States this was diagnosed by Dr. Dubon out of [place], [place]. Taking methocarbamol 750 mg 3 times [...] reviewed. Dictation completed with the use of [employer] voice recognition software, prone to medical misidentifications [...] ER follow-up hospital follow-up. María presented to [facility] ED 04/19/2025 with chief complaint of [...] taking any pain medication. Previously followed with auto body painter Dr. Trivedi who provided steroid injections. [...] with added opioid use. WIll refer to auto body painter with goal of establishing safe pain management regimen. #RA: Follows with Joshua Kaplan MD out of [place]. Discussed possibility of chronic pain being related [...] reviewed. Dictation completed with the use of [employer] voice recognition software, prone to medical misidentifications [...] for 11/20/2024. #Recent fall: Patient seen at [facility] ED 11/02/2024 s/p fall at work. [...] diffuse joint pain and fatigue. Follows with signal tower operator Dr. Clark out of [place], records requested and not yet available for my review. 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 States this was diagnosed by Dr. Dubon out of [place], [place]. Taking methocarbamol 750 mg 3 times [...] reviewed. Dictation completed with the use of [employer] voice recognition software, prone to medical misidentifications [...] Previously following with Dr. Dubon out of [place], [place]. Underwent surgical correction RA: +RF - exentsive labs including ESR/CRP, [id number]-[id number] DNA, C3 and C for complement, anti-Bermeo antibodies, anti-B2 antibodies, anti-Lakisha antibodies, creatinine kinase, and anti-SSA/anti-SSB antibodies WNL. Follows with Eduardo out of [place]. Continue meloxicam 15mg. Anxiety: Follows with psychatiric PULL WORKER Cassidy Quiroz. Continue lorazepam 1mg TID as [...] for 11/20/2024. #Recent fall: Patient seen at [facility] ED 11/02/2024 s/p fall at work. [...] diffuse joint pain and fatigue. Follows with signal tower operator Dr. Clark out of [place], records requested and not yet available for my review. 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 States this was diagnosed by Dr. Dubon out of [place], [place]. Taking methocarbamol 750 mg 3 times [...] reviewed. Dictation completed with the use of [employer] voice recognition software, prone to medical misidentifications [...] 03/21/2025 CBC (COMPLETE BLOOD COUNT) WITH DIFF 05/2025 CBC (COMPLETE BLOOD COUNT) WITH DIFF COMPLEMENT C3 12/13/2024 COMPLEMENT C4 12/13/2024 COMPREHENSIVE [...] CT Chest w/o Contrast 04/23/2025 VITAMIN B12 03/05/2025 VITAMIN B12 05/05/2025 RHEUMATOID FACTOR 10/28/2024 MAGNESIUM 03/05/2025 COMPREHENSIVE METABOLIC PANEL 03/05/2025 COMPREHENSIVE METABOLIC PANEL 05/05/2025 CBC (INCLUDES DIFF/PLT) 03/05/2025 CBC (INCLUDES DIFF/PLT) 03/05/2025 HS CRP 12/13/2024 HEMOGLOBIN A1c 05/05/2025 TSH W/REFLEX TO FT4 03/05/2025 TSH W/REFLEX TO FT4 03/05/2025 VITAMIN D,25-OH,TOTAL,IA 03/05/2025 VITAMIN D,25-OH,TOTAL,IA 10/28/2024 FOLATE 05/05/2025 FOLATE 03/05/2025 CR Spine Cervical Min 4 Views 11/18/2024 US Soft Tissue Head Neck 02/03/2025 Comp. Metabolic Panel [id number] Anti-Mi-2 Ab ([id number])-[id number] 12/13/2024 Anti-Ro (SS-A) Ab ([id number])-[id number] 5 Anti-La (SS-B) Ab ([id number])-[id number] 5 CREATINE KINASE AND CKMB 12/13/2024 Insurance Providers Payer Name Payer Address Payer Phone Subscriber Number Group Number Insured Name Patient Relationship to Insured Coverage Start Date Coverage End Date [facility] [address] [address] CAMILA QUINONEZ [id number] María Phillips Self - patient is the insured Medical (General) History Surgical History Surgery Date(Month/Year) ventral hernia repair 2018 cholecystectomy 2000 left ACL repair 1997 Right carpal tunnel release 2019 bilateral strabismus correction 1974 costal margin repair of slipped rib 12/07 11/30 mesh revision/surgical clip removal from ventral hernia repair 03/25/25 Hospitalization History Reason Date(Month/Year) Numerous ED visits
--- OUTSIDE RECORDS SUMMARY | 2025-08-21 17:37 | XMS_ITS | Encounter Summary ---
Author Organization [facility] Address [address] [place] [address] Care Team Providers Care Hair Worker Name Role Phone Tasia Ash MD Primary Care Provider [phone] Jewel Manzano MD Unavailable [phone] aJlil Paulson MD Unavailable Unavailable Encounter Details Date Type Department Care Team Description 01/10/2024 Pt. Non Urgent Medical Question [facility] [address] [facility] [address] [place] [phone] Nichelle Archibald PA-C [address] [facility] [address] [place] [address] Social History Tobacco Use Types Packs/Day Years [...] on filedocumented in this encounter Care Teams Hair Worker Relationship Specialty Start Date End Date Tasia Ash MD [address] [place] [address] PCP - General Internal Medicine 04/27/23 Jewel Manzano MD [address] [facility] [address] [place] [id number] ORTHOPEDIC SURGERY 07/14/23 Jalil Paulson MD [address] [facility] [address] [place] [id number] Ophthalmology 11/09/23 06/02/24 [facility] Specialist Rheumatology 11/09/23 Trivedi Specialist PAIN MANAGEMENT 12/18/23 [facility] Specialist Rheumatology 06/03/24 [facility] neurology Specialist Neurology 06/03/24 [facility] Optometry 06/03/24 documented as of this encounter
--- OUTSIDE RECORDS SUMMARY | 2025-08-21 17:37 | XMS_ITS | Encounter Summary ---
Author Organization [facility] Address [address] [place] [address] Care Team Providers Care Brazing Machine Tender Name Role Phone Tasia Ash MD Primary Care Provider [phone] Jewel Manzano MD Unavailable [phone] Jalil Paulson MD Unavailable Unavailable Encounter Details Date Type Department Care Team Description 01/08/2024 Pt. Non Urgent Medic al Question Gastroenterology - [place] 175 [facility] 200 [place] [phone] Rajan Sanders PA-C Social History Tobacco Use [...] on filedocumented in this encounter Care Teams Brazing Machine Tender Relationship Specialty Start Date End Date Tasia Ash MD [address] [place] [address] PCP - General Internal Medicine 04/27/23 Jewel Manzano MD 175 [facility] [address] [place] [address] ORTHOPEDIC SURGERY 07/14/23 Jalil Paulson MD [address] [place] [address] [place] [address] Ophthalmology 11/09/23 06/02/24 Brimer Specialist Rheumatology 11/09/23 Trivedi Specialist PAIN MANAGEMENT 12/18/23 Tallat Specialist Rheumatology 06/03/24 [facility] neurology Specialist Neurology 06/03/24 Erica Specialist Optometry 06/03/24 documented as of this encounter
--- OUTSIDE RECORDS SUMMARY | 2025-08-21 17:37 | XMS_ITS | Encounter Summary ---
Author Organization [facility] Address [address] [place] [address] Care Team Providers Care Medical Scientific Officer Name Role Phone Tasia Ash MD Primary Care Provider [phone] Jewel Manzano MD Unavailable [phone] Jalil Paulson MD Unavailable Unavailable Encounter Details Date Type Department Care Team Description 01/15/2024 Pt. Non Urgent Medic al Question Gastroenterology - [place] 175 [facility] 200 [place] [phone] Rajan Sanders PA-C Social History Tobacco Use [...] on filedocumented in this encounter Care Teams Medical Scientific Officer Relationship Specialty Start Date End Date Tasia Ash MD [address] [place] [address] PCP - General Internal Medicine 04/27/23 Jewel Manzano MD 175 [facility] [address] [place] [address] ORTHOPEDIC SURGERY 07/14/23 Jalil Paulson MD [address] [place] [address] [place] [address] Ophthalmology 11/09/23 06/02/24 Brimer Specialist Rheumatology 11/09/23 Trivedi Specialist PAIN MANAGEMENT 12/18/23 Tallat Specialist Rheumatology 06/03/24 [facility] neurology Specialist Neurology 06/03/24 Erica Specialist Optometry 06/03/24 documented as of this encounter
--- OUTSIDE RECORDS SUMMARY | 2025-08-21 17:37 | XMS_ITS | Encounter Summary ---
Author Organization [facility] Address [address] [place] [address] Care Team Providers Care Diagnostic Medical Sonographer Name Role Phone Tasia Ash MD Primary Care Provider [phone] Jewel Manznao MD Unavailable [phone] Jalil Paulson MD Unavailable Unavailable Encounter Details Date Type Department Care Team Description 01/11/2024 Pt. Non Urgent Medic al Question Gastroenterology - [place] 175 [facility] 200 [place] [phone] Rajan Sanders PA-C Social History Tobacco Use [...] on filedocumented in this encounter Care Teams Diagnostic Medical Sonographer Relationship Specialty Start Date End Date Tasia Ash MD 230 [place] [address] PCP - General Internal Medicine 04/27/23 Jewel Manzano MD 175 [facility] [address] [place] [address] ORTHOPEDIC SURGERY 07/14/23 Jalil Paulson MD [address] [place] [address] [place] [address] Ophthalmology 11/09/23 06/02/24 Brimer Specialist Rheumatology 11/09/23 Trivedi Specialist PAIN MANAGEMENT 12/18/23 Tallat Specialist Rheumatology 06/03/24 [facility] neurology Specialist Neurology 06/03/24 Erica Specialist Optometry 06/03/24 documented as of this encounter
--- OUTSIDE RECORDS SUMMARY | 2025-08-21 17:37 | XMS_ITS | Encounter Summary ---
Author Organization [facility] Address [address] [place] [address] Care Team Providers Care Sweatband Shaper Name Role Phone Tasia Ash MD Primary Care Provider [phone] Jewel Manzano MD Unavailable [phone] Jalil Paulson MD Unavailable Unavailable Encounter Details Date Type Department Care Team Description 12/21/2023 Pt. Non Urgent Medic al Question Gastroenterology - [place] 175 [facility] 200 [place] [phone] Rajan Sanders PA-C Social History Tobacco Use [...] on filedocumented in this encounter Care Teams Sweatband Shaper Relationship Specialty Start Date End Date Tasia Ash MD 230 [place] [address] PCP - General Internal Medicine 04/27/23 Jewel Manzano MD 175 [facility] [address] [place] [address] ORTHOPEDIC SURGERY 07/14/23 Jalil Paulson MD [address] [place] [address] [place] [address] Ophthalmology 11/09/23 06/02/24 Brimer Specialist Rheumatology 11/09/23 Trivedi Specialist PAIN MANAGEMENT 12/18/23 Tallat Specialist Rheumatology 06/03/24 [facility] neurology Specialist Neurology 06/03/24 Erica Specialist Optometry 06/03/24 documented as of this encounter
--- OUTSIDE RECORDS SUMMARY | 2025-08-21 17:37 | XMS_ITS | Encounter Summary ---
Author Organization [facility] Address [address] [place] [address] Care Team Providers Care Motorized Squad Sergeant Name Role Phone Tasia Ash MD Primary Care Provider [phone] Jewel Manzano MD Unavailable [phone] Jalil Paulson MD Unavailable Unavailable Encounter Details Date Type Department Care Team Description 12/21/2023 Pt. Non Urgent Medic al Question Gastroenterology - [place] 175 [facility] 200 [place] [phone] Rajan Sanders PA-C Social History Tobacco Use [...] on filedocumented in this encounter Care Teams Motorized Squad Sergeant Relationship Specialty Start Date End Date Tasia Ash MD 230 [place] [address] PCP - General Internal Medicine 04/27/23 Jewel Manzano MD 175 [facility] [address] [place] [address] ORTHOPEDIC SURGERY 07/14/23 Jalil Paulson MD [address] [place] [address] [place] [address] Ophthalmology 11/09/23 06/02/24 Brimer Specialist Rheumatology 11/09/23 Trivedi Specialist PAIN MANAGEMENT 12/18/23 Tallat Specialist Rheumatology 06/03/24 [facility] neurology Specialist Neurology 06/03/24 Erica Specialist Optometry 06/03/24 documented as of this encounter
--- OUTSIDE RECORDS SUMMARY | 2025-08-21 17:37 | XMS_ITS | Encounter Summary ---
Author Organization [facility] Address [address] [place] [address] Care Team Providers Care Chief Technician Name Role Phone Tasia Ash MD Primary Care Provider [phone] Jewel Manzano MD Unavailable [phone] Jalil Paulson MD Unavailable Unavailable Encounter Details Date Type Department Care Team Description 01/09/2024 Pt. Non Urgent Medic al Question Gastroenterology - [place] 175 [facility] [address] [place] [address] Rajan Sanders PA-C Social History Tobacco Use [...] encounter Miscellaneous Notes * Telephone Encounter - Cecile Moore M.A. - 01/09/2024 2:49 PM ESTFrom: María Phillips To: Hector Sanders Sent: 01/09/2024 1:01 PM EST Subject: Blood work I???ll be going to [place] in [place] after work today. Just wondering if you wanted any blood work done. Anything you wanted to check. Thank you documented in this encounter Plan of Treatment Not on file documented as of this encounter Visit Diagnoses Not on filedocumented in this encounter Care Teams Chief Technician Relationship Specialty Start Date End Date Tasia Ash MD [address] [place] [address] PCP - General Internal Medicine 04/27/23 Jewel Manzano MD 175 [facility] [address] [place] [address] ORTHOPEDIC SURGERY 07/14/23 Jalil Paulson MD [address] [address] Ophthalmology 11/09/23 06/02/24 Brimer Specialist Rheumatology 11/09/23 Trivedi Specialist PAIN MANAGEMENT 12/18/23 Tallat Specialist Rheumatology 06/03/24 [facility] neurology Specialist Neurology 06/03/24 Pulliat Specialist Optometry 06/03/24 documented as of this encounter
--- OUTSIDE RECORDS SUMMARY | 2025-08-21 17:37 | XMS_ITS | Encounter Summary ---
Author Organization [facility] Address [address] [place] [address] Care Team Providers Care Pipe Straightener Name Role Phone Monty Allan MD Primary Care Provider [phone] [facility], Pcp Primary Care Provider UnavailTasia Barnhart MD Primary Care Provider [phone] Jewel Manzano MD Unavailable [phone] Jalil Paulson MD Unavailable Unavailable Encounter Details Date Type Department Care Team Description 11/26/2020 Pt. Non Urgent Medic al Question Adult Medicine - [place] [address] [place] [address] Monty Allan MD [address] [place] [address] Social History Tobacco Use Types Packs/Day Years [...] as of this encounter Progress Notes * Vee Soliz M.A. - 11/26/2020 2:52 PM ESTFrom: María Phillips To: Monty Allan MD Sent: 11/26/2020 2:42 PM EST Subject: Vitamin D I thought I was supposed to be re-tested for Vitamin D. I've been taking the supplement for months and nobody has reached out to me. Also I would like a B12 test. My sister is deficient and her Doctor said it could be hereditary. Thank You documented in this encounter Plan of Treatment Not on file documented as of this encounter Visit Diagnoses Not on filedocumented in this encounter Care Teams Pipe Straightener Relationship Specialty Start Date End Date Monty Allan MD [address] [place] [address] PCP - General Internal Medicine 02/16/15 07/12/22 [facility], Pcp [address] [place] [address] PCP - General Internal Medicine 07/13/22 04/26/23 Tasia Ash MD [address] [place] [address] PCP - General Internal Medicine 04/27/23 Jewel Manzano MD [address] [place] [address] ORTHOPEDIC SURGERY 07/14/23 Jalil Paulson MD [address] [place] [address] Ophthalmology 11/09/23 06/02/24 Gringer Specialist Rheumatology 07/14/23 11/08/23 Brimer Specialist Rheumatology 11/09/23 Trivedi Specialist PAIN MANAGEMENT 12/18/23 Tallat Specialist Rheumatology 06/03/24 [facility] neurology Specialist Neurology 06/03/24 Amauriiat Specialist Optometry 06/03/24 documented as of this encounter
--- OUTSIDE RECORDS SUMMARY | 2025-08-21 17:37 | XMS_ITS | Encounter Summary ---
Author Organization [facility] Address [address] [place] [address] Care Team Providers Care Analyst Business Analysis Name Role Phone Tasia Ash MD Primary Care Provider [phone] Jewel Manzano MD Unavailable [phone] Jalil Paulson MD Unavailable Unavailable Reason for Referral * Radiology Services (Routine) - Closed Specialty Diagnoses / Procedures Referred By Corine strange Referred To Contact Radiology Diagnoses Generalized abdominal pain Procedures CT ABD & PELVIS W/CONTRAST Rajan Sanders PA-C [address] [place] [address] [address] [address] [place] [address] Referral ID Status Reason Start Date Expiration Date Visits Re quested Visits Authorized [id number] Closed 12/22/2023 03/24/2024 1 1 Encounter Details Date Type Department Care Team Description 12/22/2023 Telephone Gastroenterology - [place] 175 [facility] [address] [place] [address] Rajan Sanders PA-C Social History [...] encounter Miscellaneous Notes * Telephone Encounter - aFlguni Fuchs - 12/25/2023 9:05 AM EST Waiting for prior authorization. * Telephone Encounter - Rajan Sanders PA-C - 12/22/2023 10:56 PM EST Patient continues to have epigastric and abdominal pain. Patient to be scheduled for CT of abdomen and pelvis with contrast to rule out infection, obstruction, malignancy and we will be in touch withher regarding documented in this encounter Plan of Treatment Not on file documented as of this encounter Results * CT ABD & PELVIS W/CONTRAST (01/04/2024 3:38 PM EST) 01/04/2024 5:04 PM EST Impressions [facility] OTHER EXTER[facility] - 01/04/2024 5:18 PM EST IMPRESSION: 1. No acute findings in the abdomen/pelvis. 2. Prominent common bile duct terminates somewhat abruptly. Consider MRCP for better evaluation if clinically warranted. 3. Indeterminate hepatic lesion and probable areas of fat infiltration can be further evaluated at the time of the MR study. 4. Sigmoid colonic diverticulosis. Narrative [facility] EXTERNAL - 01/04/2024 5:[address] of abdomen/pelvis with intravenous contrast TECHNIQUE: Multidetector-row CT of the abdomen and pelvis was performed after administration of intravenous contrast (90 cc of Isovue-370) using tailored dose modulation techniques. Images were reconstructed in the axial, coronal, and sagittal planes. Comparison: None HISTORY: Generalized abdominal pain. FINDINGS: Lower Chest: Lung bases are clear. No pleural effusion. Liver: 1.0 cm round hypodense lesion in the left hepatic lobe (2:19). Ill-defined hypodense areas at the margins of the right hepatic lobe (for example 2:42) and adjacent to the falciform ligament (2:34 ) likely represent areas of fatty infiltration. Biliary: Status post cholecystectomy. Prominent common bile duct measuring up to 0.6 cm in caliber terminates somewhat abruptly. Spleen: No splenomegaly. No focal. Pancreas: No mass. No ductal dilatation. Adrenal Glands: No nodules. Kidneys/Ureters: No solid appearing renal masses or hydronephrosis. Bowel: Orally administered contrast has reached the splenic flexure of the colon. No bowel distention. Normal appendix in the right lower quadrant (2:69). Sigmoid colonic diverticulosis. Peritoneum/Retroperitoneum: Evidence of previous ventral hernia repair. No free air or free fluid. Lymph Nodes: No lymphadenopathy. Pelvic Organs/Bladder: Unremarkable. Vessels: No abdominal aortic aneurysm. Bones/Soft Tissues: Degenerative changes along the spine. Procedure Note Sabas Ferguson MD - 01/04/2024 CT of abdomen/pelvis with intravenous contrast TECHNIQUE: Multidetector-row CT of the abdomen and pelvis was performedafter administration of intravenous contrast (90 cc of Isovue-370) using tailored dose modulationtechniques. Images were reconstructed in the axial, coronal, and sagittal planes. Comparison: None HISTORY: Generalized abdominal pain. FINDINGS: Lower Chest: Lung bases are clear. No pleural effusion. Liver: 1.0 cm round hypodense lesion in the left hepatic lobe (2:19).Ill-defined hypodense areas at the margins of the right hepatic lobe (for example 2:42) andadjacent to the falciform ligament (2:34 ) likely represent areas of fatty infiltration. Biliary: Status post cholecystectomy. Prominent common bile ductmeasuring up to 0.6 cm in caliber terminates somewhat abruptly. Spleen: No splenomegaly. No focal. Pancreas: No mass. No ductal dilatation. Adrenal Glands: No nodules. Kidneys/Ureters: No solid appearing renal masses or hydronephrosis. Bowel: Orally administered contrast has reached the splenic flexure of thecolon. No bowel distention. Normal appendix in the right lower quadrant (2:69). Sigmoidcolonic diverticulosis. Peritoneum/Retroperitoneum: Evidence of previous ventral hernia repair.No free air or free fluid. Lymph Nodes: No lymphadenopathy. Pelvic Organs/Bladder: Unremarkable. Vessels: No abdominal aortic aneurysm. Bones/Soft Tissues: Degenerative changes along the spine. IMPRESSION IMPRESSION: 1. No acute findings in the abdomen/pelvis. 2. Prominent common bile duct terminates somewhat abruptly. ConsiderMRCP for better evaluation if clinically warranted. 3. Indeterminate hepatic lesion and probable areas of fat infiltrationcan be further evaluated at the time of the MR study. 4. Sigmoid colonic diverticulosis. Rajan Sanders TL-[place] CT SCANS [facility]TER[facility] documented in this encounter Visit Diagnoses Diagnosis Generalized abdominal pain- Primary Abdominal pain, generalized Generalized abdominal pain Abdominal pain, generalized documented in this encounter Care Teams Analyst Business Analysis Relationship Specialty Start Date End Date Tasia Ash MD [address] [place] [address] PCP - General Internal Medicine 04/27/23 Jewel Manzano MD [address] [address] ORTHOPEDIC SURGERY 07/14/23 Jalil Paulson MD [address] [address] Ophthalmology 11/09/23 06/02/24 Brimer Specialist Rheumatology 11/09/23 Trivedi Specialist PAIN MANAGEMENT 12/18/23 Tallat Specialist Rheumatology 06/03/24 [facility] neurology Specialist Neurology 06/03/24 [facility] Opt[facility] 06/03/24 documented as of this encounter
--- OUTSIDE RECORDS SUMMARY | 2025-08-21 17:38 | XMS_ITS | Encounter Summary ---
Author Organization [facility] Address [address] [place] [address] Care Team Providers Care Snow Groomer Name Role Phone Tasia Ash MD Primary Care Provider [phone] Jewel Manzano MD Unavailable [phone] Jalil Paulson MD Unavailable Unavailable Encounter Details Date Type Department Care Team Description 01/04/2024 Pt. Non Urgent Medic al Question Gastroenterology - [place] 175 [facility] 200 [place] [phone] Rajan Sanders PA-C Social History Tobacco Use [...] on filedocumented in this encounter Care Teams Snow Groomer Relationship Specialty Start Date End Date Tasia Ash MD [address] [place] [address] PCP - General Internal Medicine 04/27/23 Jewel Manzano MD 175 [facility] [address] [place] [address] ORTHOPEDIC SURGERY 07/14/23 Jalil Paulson MD [address] [place] [address] [place] [address] Ophthalmology 11/09/23 06/02/24 Brimer Specialist Rheumatology 11/09/23 Trivedi Specialist PAIN MANAGEMENT 12/18/23 Tallat Specialist Rheumatology 06/03/24 [facility] neurology Specialist Neurology 06/03/24 Erica Specialist Optometry 06/03/24 documented as of this encounter
--- OUTSIDE RECORDS SUMMARY | 2025-08-21 17:38 | XMS_ITS | Encounter Summary ---
Author Organization [facility] Address [address] [place] [address] Care Team Providers Care Java Web Engineer Name Role Phone Tasia Ash MD Primary Care Provider [phone] Jewel Manzano MD Unavailable Jalil Paulson MD Unavailable Unavailable Encounter Details Date Type Department Care Team Description 02/21/2024 Hospital Medical Records [address] [place] [address] Jacy Mcdowell MD [address] [address] Social History Tobacco Use Types Packs/Day Years [...] on filedocumented in this encounter Care Teams Java Web Engineer Relationship Specialty Start Date End Date Tasia Ash MD [address] [place] [address] PCP - General Internal Medicine 04/27/23 Jewel Manzano MD [address] [address] ORTHOPEDIC SURGERY 07/14/23 Jalil Paulson MD [address] [place] [address] Ophthalmology 11/09/23 06/02/24 Brimer Specialist Rheumatology 11/09/23 Trivedi Specialist PAIN MANAGEMENT 12/18/23 Tallat Specialist Rheumatology 06/03/24 [facility] neurology Specialist Neurology 06/03/24 Amauriiat Specialist Optometry 06/03/24 documented as of this encounter
--- OUTSIDE RECORDS SUMMARY | 2025-08-21 17:38 | XMS_ITS | Encounter Summary ---
Author Organization [facility] Address [address] [place] [address] Care Team Providers Care Parts Salvager Name Role Phone Tasia Ash MD Primary Care Provider [phone] Jewel Manzano MD Unavailable [phone] Jalil Paulson MD Unavailable Unavailable Encounter Details Date Type Department Care Team Description 02/23/2024 Orders Only Medical Records [address] [place] [address] Jacy Mcdowell MD [address] [place] [phone] Social History Tobacco Use Types Packs/Day [...] on file documented as of this encounter Procedures Procedure Name Priority Date/Time Associated Diagnosis Comments OUTSIDE PATHOLOGY Routine 02/21/2024 documented in this encounter Results * OUTSIDE PATHOLOGY (02/21/2024) Jacy Mcdowell MD OUTSIDE LAB documented in this encounter Visit Diagnoses Not on filedocumented in this encounter Care Teams Parts Salvager Relationship Specialty Start Date End Date Tasia Ash MD [address] [place] [address] PCP - General Internal Medicine 04/27/23 Jewel Manzano MD [address] [address] ORTHOPEDIC SURGERY 07/14/23 Jalil Paulson MD [address] [address] Ophthalmology 11/09/23 06/02/24 Brimer Specialist Rheumatology 11/09/23 Trivedi Specialist PAIN MANAGEMENT 12/18/23 Tallat Specialist Rheumatology 06/03/24 [facility] neurology Specialist Neurology 06/03/24 [place] Specialist Optometry 06/03/24 documented as of this encounter
--- OUTSIDE RECORDS SUMMARY | 2025-08-21 17:39 | XMS_ITS | Encounter Summary ---
Author Organization [facility] Address [address] [place] [address] Care Team Providers Care Chemical Reclamation Equipment Operator Name Role Phone Tasia Ash MD Primary Care Provider [phone] Jewel Manzano MD Unavailable Jalil Paulson MD Unavailable Unavailable Encounter Details Date Type Department Care Team Description 01/17/2024 Pt. Non Urgent Medic al Question Gastroenterology - [place] 175 [facility] [address] [place] [address] Rajan Sanders PA-C Social History Tobacco Use [...] Telephone Encounter - Cecile Moore M.A. - 01/17/2024 10:15 AM EDTFrom: María Phillips To: Hector Sanders Sent: 01/17/2024 9:14 AM EDT Subject: Severe stomach cramps I just wanted to let you know, that I???ve been having pretty severe stomach pain and cramps. Burning in upper abdomen, and last night I had horrible lower belly cramps with a combination of regular stool and diarrhea, until 2 this morning. I am having the upper endoscopy tomorrow, but I don???t think this problem is related to my stomach. I have been battling this on and off for years, and haven???t really addressed it, but clearly it???s getting worse. My intestines are starting to hurt just to touch, and it hurts to lay on my stomach. The multitude of scans I???ve had don???t show any explanation for this pain. Wondering about IBS. After my colonoscopy I was given Dyclomine for pain. I would like to set up an appointment to address this, and do you think I should sta rt taking this? Itis a 20mg blue tablet. Thank you documented in this encounter Plan of Treatment Not on file documented as of this encounter Visit Diagnoses Not on filedocumented in this encounter Care Teams Chemical Reclamation Equipment Operator Relationship Specialty Start Date End Date Tasia Ash MD [address] [place] [address] PCP - General Internal Medicine 04/27/23 Jewel Manzano MD 175 [facility] [address] [place] [address] ORTHOPEDIC SURGERY 07/14/23 Jalil Paulson MD [address] [address] Ophthalmology 11/09/23 06/02/24 Brimer Specialist Rheumatology 11/09/23 [facility] Specialist PAIN MANAGEMENT 12/18/23 [place] Specialist Rheumatology 06/03/24 [facility] neurology Specialist Neurology 06/03/24 [facility] 06/03/24 documented as of this encounter
--- OUTSIDE RECORDS SUMMARY | 2025-08-21 17:39 | XMS_ITS | Encounter Summary ---
Author Organization [facility] Address [address] [place] [address] Care Team Providers Care Automation And Controls Instructor Name Role Phone Monty Allan MD Primary Care Provider [phone] [facility], Pcp Primary Care Provider [facility] Primary Care Provider + [phone] Jewel Manzano MD Unavailable [phone] Jalil Paulson MD Unavailable Unavailable Encounter Details Date Type Department Care Team Description 08/02/2021 Research Programmer Report Medical Records [address] [place] [address] Chintan Condon MD Social History Tobacco Use [...] file Not on file Not on file COVID-19 Exposure Response Date Recorded In the last month, have you been in contact with someone who was confirmed or suspected to have Coronavirus / COVID-19? No / Unsure 08/03/2021 11:05 AM EDT documented as of this encounter Plan of Treatment Not on file documented as of this encounter Visit Diagnoses Not on filedocumented in this encounter Care Teams Automation And Controls Instructor Relationship Specialty Start Date End Date Monty Allan MD [address] [place] [address] PCP - General Internal Medicine 02/16/15 07/12/22 [facility], Pcp [address] [place], [place] PCP - General Internal Medicine 07/13/22 04/26/23 Tasia Ash MD [address] [place] [address] PCP - General Internal Medicine 04/27/23 Jewel Manzano MD [address] [address] ORTHOPEDIC SURGERY 07/14/23 Jalil Paulson MD [address] [address] Ophthalmology 11/09/23 06/02/24 Gringer Specialist Rheumatology 07/14/23 11/08/23 Brimer Specialist Rheumatology 11/09/23 Trivedi Specialist PAIN MANAGEMENT 12/18/23 Tallat Specialist Rheumatology 06/03/24 [facility] neurology Specialist Neurology 06/03/24 Pulliat Specialist Optometry 06/03/24 documented as of this encounter
--- OUTSIDE RECORDS SUMMARY | 2025-08-21 17:39 | XMS_ITS | Patient Health Record ---
Author Organization [facility] Address [address] [place] [address] Care Team Providers Care Cardroom Manager Name Role Phone IKER ROBLERO PA-C Primary Care Provider Unav Mirella Pandali Unavailable [phone] Allergies Allergen (clinical drug ingredient) Drug/Non Drug Allergy documented on EMR Reaction Allergy Type Onset Date Status erythromycin ERYTHROMYCIN Skin Rash Drug Allergy A ctive Results Component Value Reference Range Notes HBsAg Screen-[id number] Reviewed date:08/21/2025 07:50:52 AM Interpretation: Performing Lab:[facility], [address], [address], [employer] [place], Phone - [phone], Director - [facility] Notes/Report: Clinical Information:SRC:UR HBsAg Screen Negative Negative HIV Ab/p24 Ag with Reflex-[id number] Reviewed date:08/21/2025 07:51:19 AM Interpretation: Performing Lab:[facility] [place], [address], [address], [place], Phone - [phone], Director - [facility] Notes/Report: Clinical Information:SRC:UR HIV Ab/p24 Ag Screen Non Reactive Non Reactive HIV-1/HIV-2 antibodies and HIV-1 p24 antigen were NOT detected. There is no laboratory evidence of HIV infection. HIV Negative M genitalium AZEB, Urine-1800 25 Reviewed date:08/21/2025 07:50:59 AM Interpretation: Performing Lab:[facility] [place], [address], [place], Phone - [phone], Director - [facility] Notes/Report: Clinical Information:SRC:UR Mycoplasma genitalium AZEB Negative Negative HCV Antibody-[id number] Reviewed date:08/21/2025 07:51:12 AM Interpretation: Performing Lab:[facility] [place], [address], [place], Phone - [phone], Director - [facility] Notes/Report: Clinical Information:SRC:UR Hep C Virus Ab Non Reactive Non Reactive HCV antibody alone does not differentiate between previously resolved infection and active infection. Equivocal and Reactive HCV antibody results should be followed up with an HCV RNA test to support the diagnosis of active HCV infection. PDF Report Reviewed date:08/21/2025 07:50:23 AM Interpretation: Performing Lab:[facility] [place], [address], [address], [place], Phone - [phone], Director - [facility] Notes/Report: Clinical Information:SRC:UR Syphilis RPR w/reflex Reviewed date:08/21/2025 07:51:06 AM Interpretation: Performing Lab:[facility] [place], [address], [place], Phone - [phone], Director - [facility] Notes/Report: Clinical Information:SRC:UR RPR Non Reactive Non Reactive PDF Report Reviewed date:08/20/2025 05:10:43 PM Interpretation: Performing Lab:[facility] [place], [address], [place], Phone - [phone], Director - [facility] Notes/Report: Clinical Information:SRC:UC Chlamydia/GC Amplification Reviewed date:08/20/2025 05:10:49 PM Interpretation: Performing Lab:[facility] [place], [address], [address], [place], Phone - [phone], Director - [facility] Notes/Report: Clinical Information:SRC:UC Chlamydia trachomatis, AZEB Negative Negative Neisseria gonorrhoeae, AZEB Negative Negative PDF Report Reviewed date:07/03/2025 07:41:07 AM Interpretation: Performing Lab:[facility] [place], [address] [facility], [place], Phone - [phone], Director - Elsa Notes/Report: Clinical Information:SRC:UC Urine Culture, Routine-[id number] 7 Reviewed date:07/03/2025 07:42:29 AM Interpretation: Performing Lab:[facility] [place], [address], [place], Phone - [phone], Director - [place] Notes/Report: Clinical Information:SRC:UC Clinical Information:SRC:UC Urine Culture, Routine Final report Result 1 Mixed urogenital ramone 25,000-50,000 colony forming units per mL Urinalysis, Complete-[id number] Reviewed date:07/03/2025 07:42:16 AM Interpretation: Performing Lab:[facility], [address], [place], Phone - [phone], Director - [place] Notes/Report: Clinical Information:SRC: Clinical Information:SRC: Specific Kathleen 1.013 1.005-1.030 pH 6.5 5.0-7.5 Urine-Color Yellow [...] seen /lpf Bacteria None seen None seen/Few 463056-Vwr IGP No Culture 30 Plus Reviewed date:07/17/2025 02:32:32 PM Interpretation: Performing Lab:[facility], [address], [address], [place], Phone - [phone], Director - Jaswinder Notes/Report: Clinical Information:VAG/CERV [id number] Dates / Results....05/26/2023 ASCUS POS HPV Other..............Post Menopausal No. of containers..01 ThinPrep Vial Clinical Information:VAG/CERV [id number] Dates / Results....05/26/2023 ASCUS POS HPV Other..............Post Menopausal No. of containers..01 ThinPrep Vial DIAGNOSIS: NEGATIVE FOR INTRAEPITHELIAL LESION OR MALIGNANCY. THIS SPECIMEN WAS RESCREENED PART OF OUR DISABILITY BENEFITS SPECIALIST PROGRAM. Specimen adequacy: Satisfactory for evaluation. Endocervical and/or squamous metaplastic cells (endocervical component) are present. Clinician provided ICD10: Z01.419 Z11.51 Performed by: Tianna vasquez, Sander Machine ([facility]) QC reviewed by: Tutu weaver, Sander Machine (ASCP) . . Note: The Pap smear [...] Report Reviewed date:07/10/2025 04:46:44 PM Interpretation: Performing Lab:[facility], [address], [place], Phone - [phone], Director - [facility] Notes/Report: Clinical Information:VAG/CERV [id number] Dates / Results....05/26/2023 ASCUS POS HPV Other..............Post Menopausal No. of containers..01 ThinPrep Vial Vitamin [id number] Reviewed date:12/14/2024 02:48:01 PM Interpretation: Performing Lab:[facility], [address] [place] [address], Phone - [phone], Director - [facility] Notes/Report: Test(s) 039338-Yzq. B1, Whole Blood was developed and its performance characteristics determined by [employer]. It has not been cleared or approved by the Food and Drug Administration. Vitamin B12 438 083-8970 pg/mL Thyroxine (T4) Free, Direct- 904627 Reviewed date:12/14/2024 02:48:28 PM Interpretation: Performing Lab:[facility] [place], [address] [place] [address], Phone - [phone], Director - [facility] Notes/Report: Test(s) 566815-Cdo. B1, Whole Blood was developed and its performance characteristics determined by [employer]. It has not been cleared or approved by the Food and Drug Administration. T4,Free(Direct) 1.16 0.82-1.77 ng/dL TSH-208649 Reviewed date:12/14/2024 02:48:55 PM Interpretation: Performing Lab:[facility] [place], [address] [place] [address], Phone - [phone], Director - [facility] Notes/Report: Test(s) 261374-Dmp. B1, Whole Blood was developed and its performance characteristics determined by [facility]. It has not been cleared or approved by the Food and Drug Administration. TSH 0.492 0.450-4.500 uIU/mL Triiodothyronine (T3), Free- 855667 Reviewed date:12/14/2024 02:48:08 PM Interpretation: Performing Lab:[facility] [place], [address] [place] [address], [place], Phone - [phone], Director - [facility] Notes/Report: Test(s) 667022-Bka. B1, Whole Blood was developed and its performance characteristics determined by [facility]. It has not been cleared or approved by the Food and Drug Administration. Triiodothyronine (T3), Free 2.9 2.0-4.4 pg/mL Vitamin D, 29-Myyzxdr-588005 Reviewed date:12/14/2024 02:47:53 PM Interpretation: Performing Lab:[facility] [place], [address] [place] [address], [place], Phone - [phone], Director - [facility] Notes/Report: Test(s) 157895-Dbm. B1, Whole Blood was developed and its performance characteristics determined by [facility]. It has not been cleared or approved by the Food and Drug Administration. Vitamin D, 25-Hydroxy 48.0 30.0-100.0 ng/mL Vitamin D deficiency has been defined by the [place] [employer] and an Endocrine Society practice guideline as a level of serum 25-OH vitamin D less than 20 ng/mL (1,2). The Endocrine Society went on to further define vitamin D insufficiency as a level between 21 and 29 ng/mL (2). 1. IOM ([place] [employer]). 2010. Dietary reference intakes for calcium and D. [place]: The National Academies Press. 2. Angelica MF, Leonel NC, Sheeba MCKENNA, et al. Evaluation, treatment, and prevention of vitamin D deficiency: an Endocrine Society clinical practice guideline. JCEM. 2011 May; 96(7):7401-30. Vitamin B1 (Thiamine), Blood -263005 Reviewed date:12/14/2024 02:48:18 PM Interpretation: Performing Lab:[facility] [place], [address] [facility], Phone - [phone], Director - [facility] Notes/Report: Test(s) 044827-Des. B1, Whole Blood was developed and its performance characteristics determined by [facility]. It has not been cleared or approved by the Food and Drug Administration. Vit. B1, Whole Blood 131.3 66.5-200.0 nmol/L PDF Report Reviewed date:12/14/2024 02:47:46 PM Interpretation: Performing Lab:[facility] [place], [address] [facility], [place], Phone - [phone], [facility] Notes/Report: Test(s) 059067-Gst. B1, Whole Blood was developed and its performance characteristics determined by [facility]. It has not been cleared or approved by the Food and Drug Administration. Urinalysis Reviewed date:10/14/2024 01:33:35 PM Interpretation: Performing Lab: Notes/Report: PH 8.0 PROTEIN Neg GLUCOSE Neg BLOOD Neg Reason For Referral No Information Medications Medication SIG (Take, Route, Frequency, Duration) Notes Start Date End Date Status Vitamin C 500 MG as directed Orally Active Escitalopram Oxalate 10 MG Oral; Duration: 30 Days Active Turmeric 500 MG as directed Orally Active Gabapentin 100 MG TAKE 1 CAPSULE BY [facility] 3 TIMES A DAY Oral; Duration: [...] test positive, high risk on vaginal specimen (688017196397393) Cervical high risk human papillomavirus (HPV) DNA test positive (R87.810) Active confirmed Problem Postmenopausal atrophic vaginitis (22399040) Postmenopausal atrophic vaginitis (N95.2) Active confirmed Problem Cervicovaginal cytology: Low grade squamous intraepithelial lesion (365155442) Low grade squamous intraepithelial lesion on cytologic smear of cervix (LGSIL) (R87.612) Active confirmed Problem Non-toxic single thyroid nodule (236083270) Nontoxic single thyroid nodule (E04.1) Active confirmed Problem Autoimmune thyroiditis (56637690) Autoimmune thyroiditis (E06.3) Active confirmed Problem Anxiety disorder (034145073) Anxiety disorder, unspecified (F41.9) Active confirmed Problem Epidermal cyst (103690423) Epidermal cyst (L72.0) Active confirmed Problem Rheumatoid arthritis (03928123) Rheumatoid arthritis, unspecified (M06.9) Active confirmed Problem Endometrial intraepithelial neoplasia (199675045) 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) Active confirmed Problem Postcoital bleeding (34118891) Postcoital and contact bleeding (N93.0) Active confirmed Problem Unspecified abnormal finding in specimens from female genital organs (R87.9) Active confirmed Problem Menopause (057503613) Menopausal and female climacteric states (N95.1) Active confirmed Problem Anxiety state (986163070) Anxiety state, unspecified (300.00) Active confirmed Major Vital Signs Temperature 97.3 degrees Fahrenheit 07/03/2025 Blood pressure diastolic 84 mm Hg 07/03/2025 Height 62 in 07/03/2025 Blood pressure systolic 128 mm Hg 07/03/2025 Weight 161 lbs 07/03/2025 BMI 29.44 kg/m2 07/03/2025 Encounters Encounter Location Date Provider Diagnosis [facility] [address] [address] 12/05/2024 Latonya Lozano Total [address] [address] 02/14/2025 Latonyaines DiazLozano Total [address] [address] 03/06/2025 Latonyaines DiazLozano Total [address] [address] 10/14/2024 Latonya Mcgeeva Encounter for gynecological examination (general) (routine) without abnormal findings Z01.419 ; Encounter for screening mammogram for malignant neoplasm of breast Z12.31 ; Personal history of other diseases of the female genital tract Z87.42 ; Cervical high risk human papillomavirus (HPV) DNA test positive R87.810 and Postmenopausal atrophic vaginitis N95.[address] [address] 12/09/2024 Latonyaines Mcgeeva Other fatigue R53.83 and Menopausal and female climacteric states N95.[address] [address] 07/03/2025 Latonyaines Mcgeeva Lower abdominal pain , unspecified R10.30 ; Atypical squamous cells of undetermined significance on cytologic smear of vagina (ASC-US) R87.620 ; Cervical high risk human papillomavirus (HPV) DNA test positive R87.810 and Encounter for screening for human papillomavirus (HPV) Z11.[address] [address] 12/03/2024 Latonyaines DiazLozano Total [address] [address] 12/12/2024 Latonyaines DiazLozano [address] [address] 01/22/2025 Latonyaines DiazLozano [address] [address] 02/16/2025 Latonya Lozano Total [facility] [address] [facility] [address] [place] [address] 06/30/2025 Latonya Lozano Dysuria R30.0 Total [facility] [address] [facility] [address] [place] [address] 08/19/2025 Latonya Lozano High risk heterosexu al behavior Z72.51 Assessments Encounter Date Diagnosis (ICD [...] HAS SPINAL ISSUES. REFERRED TO DR THOMAS. 08/19/2025 High risk heterosexual behavior (ICD-10 - Z72.51) 07/03/2025 Atypical squamous cells of undetermined significance [...] AND NEEDS TESTOSTERONE THERAPY, WILL REFER TO [facility]. WARNED PAT OF POSSIBLE VAGINAL [...] Screening 10/14/2024 MM Digital Mammo Screening 05/04/2023 Chlamydia/GC Amplification-[id number] 2024 Insurance Providers Payer Name Payer Address Payer Phone Subscriber Number Group Number Insured Name Patient Relationship to Insured Coverage Start Date Coverage End Date [place]AM[place] [address] [address] [place]ICAMILA LORA [id number] MARCUS OLSON Self - patient is the [...]
--- OUTSIDE RECORDS SUMMARY | 2025-08-21 17:39 | XMS_ITS | Encounter Summary ---
Author Organization [facility] Address [address] [place] [address] Care Team Providers Care Nail Making Machine Setter Name Role Phone Monty Allan MD Primary Care Provider [phone] [facility], Pcp Primary Care Provider UnavailTasia Barnhart MD Primary Care Provider [phone] Jewel Manzano MD Unavailable [phone] Jalil Paulson MD Unavailable Unavailable Reason for Visit * Reason Onset Date Comments Content Strategy Lead Feedback 03/26/2018 MRI of Femur Encounter Details Date Type Department Care Team Description 03/26/2018 [facility] [address] [address] Adelita Fried DPM Content Strategy Lead Feedback (MRI of Femur) Social History Tobacco Use Types Packs/Day Years Used Date Smoking Tobacco: Every Day Cigarettes 0.5 15 Smokeless Tobacco: Current Alcohol Use Standard Drinks/Week Comments Yes 0 (1 standard drink = 0.6 oz pur e alcohol) Social Sex Assigned at Date Recorded Female 07/02/2024 12:20 PM EDT Job Start Date Occupation Industry Not on file Not on file Not on file documented as of this encounter Miscellaneous Notes * Telephone Encounter - Aspen Dunlap - 04/20/2018 8:35 AM EDT Via fax. Appointment scheduled for 04/25/2018 at 2:00 pm * Telephone Encounter - Aspen Dunlap - 03/26/2018 12:45 PM EDT Notification letter mailed to patient. Office will contact patient to book appointment. Order faxed to [facility]. Office books with patient and will notify us with appointment. documented in this encounter Plan of Treatment Not on file documented as of this encounter Visit Diagnoses Not on filedocumented in this encounter Care Teams Nail Making Machine Setter Relationship Specialty Start Date End Date Monty Allan MD [address] [place] [address] PCP - General Internal Medicine 02/16/15 07/12/22 [facility], Pcp [address] [place] [address] PCP - General Internal Medicine 07/13/22 04/26/23 Tasia Ash MD [address] [place] [address] PCP - General Internal Medicine 04/27/23 Jewel Manzano MD [address] [place] [address] ORTHOPEDIC SURGERY 07/14/23 Jalil Paulson MD [address] [address] Ophthalmology 11/09/23 06/02/24 [facility] Specialist Rheumatology 07/14/23 11/08/23 Br[facility] Specialist Rheumatology 11/09/23 Trivedi Specialist PAIN MANAGEMENT 12/18/23 [facility] Specialist Rheumatology 06/03/24 [facility] neurology Specialist Neurology 06/03/24 [facility] Specialist Optometry 06/03/24 documented as of this encounter
--- OUTSIDE RECORDS SUMMARY | 2025-08-21 17:39 | XMS_ITS | Encounter Summary ---
Author Organization [facility] Address [address] [place] [address] Care Team Providers Care Server Security Administrator Name Role Phone Tasia Ash MD Primary Care Provider [phone] Jewel Manzano MD Unavailable [phone] Jalil Paulson MD Unavailable Unavailable Encounter Details Date Type Department Care Team Description 02/05/2024 Orders Only Medical Records [address] [place] [address] Tammi Edwards PA-C Social History Tobacco Use Types Packs/Day [...] Name Priority Date/Time Associated Diagnosis Comments OUTSIDE ULTRASOUND Routine 02/03/2024 documented in this encounter Results * OUTSIDE ULTRASOUND (02/03/2024) Tammi Edwards PA-C RADIOLOGY documented in this encounter Visit Diagnoses Not on filedocumented in this encounter Care Teams Server Security Administrator Relationship Specialty Start Date End Date Tasia Ash MD [address] [place] [address] PCP - General Internal Medicine 04/27/23 Jewel Manzano MD 175 [facility] [address] [place] [address] ORTHOPEDIC SURGERY 07/14/23 Jalil Paulson MD [address] [address] Ophthalmology 11/09/23 06/02/24 [facility] Specialist Rheumatology 11/09/23 Trivedi Specialist PAIN MANAGEMENT 12/18/23 [place] Specialist Rheumatology 06/03/24 [facility] neurology Specialist Neurology 06/03/24 [facility] 06/03/24 documented as of this encounter
--- OUTSIDE RECORDS SUMMARY | 2025-08-21 17:39 | XMS_ITS | Encounter Summary ---
Author Organization [facility] Address [address] [place] [address] Care Team Providers Care Contract Agent Name Role Phone Monty Allan MD Primary Care Provider [phone] [facility], Pcp Primary [facility] Provider [facility] Tasia Rush MD Primary Care Provider [phone] Jewel Manzano MD Unavailable Jalil Paulson MD Unavailable Unavailable Reason for Visit * Reason Onset Date Comments URI Symptoms 06/14/2021 Encounter Details Date Type Department Care Team Description 06/14/2021 Telephone Adult Medicine - [place] [address] [place] [address] Monty Allan MD [address] [place] [address] URI Symptoms Social History Tobacco Use Types Packs/Day Years [...] have Coronavirus / COVID-19? No / Unsure 06/14/2021 2:21 PM EDT documented as of this encounter Miscellaneous Notes * Telephone Encounter - Aaron Pfeiffer LPN - 06/14/2021 5:08 PM EDT Patient called and got an appointment for tomorrow for covid testing she could not get in today * Telephone Encounter - Janice Alvarez - 06/14/2021 3:35 PM EDT Just saw Hay at 2:30 today, 06/14, and was advised to get tested for COVID-19 sometime today. Has been trying to get an appointment and everything around here is booked up. Would like to know what would be recommended for her to do at this point. Please advise. documented in this encounter Plan of Treatment Not on file documented as of this encounter Visit Diagnoses Not on filedocumented in this encounter Care Teams Contract Agent Relationship Specialty Start Date End Date Monty Allan MD [address] [place] [address] PCP - General Internal Medicine 02/16/15 07/12/22 [facility], Pcp [address] [place], [place] PCP - General Internal Medicine 07/13/22 04/26/23 Tasia Ash MD [address] [place], [place] PCP - General Internal Medicine 04/27/23 Jewel Manzano MD [address] [place] [address] ORTHOPEDIC SURGERY 07/14/23 Jalil Paulson MD [address] [place] [address] Ophthalmology 11/09/23 06/02/24 [facility] Specialist Rheumatology 07/14/23 11/08/23 [facility] Specialist Rheumatology 11/09/23 [facility] Specialist PAIN MANAGEMENT 12/18/23 [place] Specialist Rheumatology 06/03/24 [facility] neurology Specialist Neurology 06/03/24 [facility] Specialist Optometry 06/03/24 documented as of this encounter
--- OUTSIDE RECORDS SUMMARY | 2025-08-21 17:39 | XMS_ITS | Encounter Summary ---
Author Organization [facility] Address [address] [place] [address] Care Team Providers Care Dry End Operator Name Role Phone Tasia Ash MD Primary Care Provider [phone] Jewel Manzano MD Unavailable [phone] Jalil Paulson MD Unavailable Unavailable Encounter Details Date Type Department Care Team Description 01/18/2024 Hospital Medical Records [address] [place] [address] Elodia Bunn MD [address] [place] [address] Social History Tobacco Use Types Packs/Day Years [...] on filedocumented in this encounter Care Teams Dry End Operator Relationship Specialty Start Date End Date Tasia Ash MD [address] [place] [address] PCP - General Internal Medicine 04/27/23 Jewel Manzano MD 175 [facility] [address] [place] [address] ORTHOPEDIC SURGERY 07/14/23 Jalil Paulson MD [address] [place] [address] Ophthalmology 11/09/23 06/02/24 [facility] Specialist Rheumatology 11/09/23 Trivedi Specialist PAIN MANAGEMENT 12/18/23 [place] Specialist Rheumatology 06/03/24 [facility] neurology Specialist Neurology 06/03/24 Eric[facility] Specialist Optometry 06/03/24 documented as of this encounter
--- OUTSIDE RECORDS SUMMARY | 2025-08-21 17:39 | XMS_ITS | Continuity of Care Document ---
Author Organization [facility] [address] [place] [address] Phone [phone] Care Team Providers Care Beam Carrier Hauler Pusher Name Role Phone Vee Queen M.D Care Team Informa tijolanta Developmental Mathematics Instructor [phone] Problems Active Problems Provider Date Anxiety Eric [...] Medications SIG Qnty Indications Ordering Provider Date Emyfyjizfpdek0va Tablets 1 tabs by mouth at 11pm 1tabs Eric Shah M.D. 12/01/2022 [id number] Capsules Take 1 Capsule By Mouth 2 Times A Day Terence Olvera MD Lggiqdquzucymddsay0o g TBPK follow package directions Unknown Vital Signs Date Vital Result Comment 12/01/2022 11:00am BP Systolic 130 mmHg BP Diastolic 70 mmHg Heart Rate 72 /min Height 64 inches 5'4 Weight 185.00 lb BMI (Body Mass Index) 31.8 kg/m2 Results Test Acquired Date Facility Test Result H/L Range N ote Cortisol 01/20/2023 [facility] Cortisol 0.6 g/dL 1 Cortisol 01/06/2023 [facility] Refer [facility] Lab Cortisol <pending> Cortisol 01/05/2023 [facility] Referen ce Lab Cortisol 5.3 g/dL 2 Free T4 01/05/2023 [facility] Referen [facility] Free T4 0.98 ng/dL (0.70-1.80) [facility] 0.52 uIU/mL (0.4-4.2) Free T4 01/04/2023 [facility] Referen [facility] Lab Free T4 <pending> TSH 01/04/2023 [facility] ce Lab TSH <pending> 1 Reference [...]
--- OUTSIDE RECORDS SUMMARY | 2025-08-21 17:39 | XMS_ITS | Encounter Summary ---
Author Organization [facility] Address [address] [place] [address] Care Team Providers Care Skip Miner Name Role Phone Tasia Ash MD Primary Care Provider [phone] Jewel Manzano MD Unavailable [phone] Jalil Paulson MD Unavailable Unavailable Encounter Details Date Type Department Care Team Description 01/22/2024 Pt. Non Urgent Medic al Question Gastroenterology - [place] 175 [facility] [address] [place] [id number] Rajan Sanders PA-C Social History Tobacco Use [...] on filedocumented in this encounter Care Teams Skip Miner Relationship Specialty Start Date End Date Tasia Ash MD [address] [place] [address] PCP - General Internal Medicine 04/27/23 Jewel Manzano MD 175 [facility] [address] [place] [address] ORTHOPEDIC SURGERY 07/14/23 Jalil Paulson MD [address] [place] [address] [place] [address] Ophthalmology 11/09/23 06/02/24 Brimer Specialist Rheumatology 11/09/23 Trivedi Specialist PAIN MANAGEMENT 12/18/23 Tallat Specialist Rheumatology 06/03/24 [facility] neurology Specialist Neurology 06/03/24 Erica Specialist Optometry 06/03/24 documented as of this encounter
--- OUTSIDE RECORDS SUMMARY | 2025-08-21 17:39 | XMS_ITS | Encounter Summary ---
Author Organization [facility] Address [address] [place] [address] Care Team Providers Care Three Dimensional Art Instructor Name Role Phone Monty Allan MD Primary Care Provider [facility], Pcp Primary Care Provider [facility] Tasia Ash MD Primary Care Provider [phone] Jewel Manzano MD Unavailable [phone] Jalil Paulson MD Unavailable Unavailable Encounter Details Date Type Department Care Team Description 01/04/2022 SCAN [facility] 175 [facility] [address] [place] [address] Jewel Manzano MD 175 [facility] [address] [place] [address] Social History Tobacco Use Types Packs/Day Years [...] have Coronavirus / COVID-19? No / Unsure 12/24/2021 2:52 PM EST documented as of this encounter Plan of Treatment Not on file documented as of this encounter Visit Diagnoses Not on filedocumented in this encounter Care Teams Three Dimensional Art Instructor Relationship Specialty Start Date End Date Monty Allan MD [address] [place] [address] PCP - General Internal Medicine 02/16/15 07/12/22 [facility], [facility] [address] [place], [place] PCP - General Internal Medicine 07/13/22 04/26/23 Tasia Ash MD [address] [place] [address] PCP - General Internal Medicine 04/27/23 Jewel Manzano MD [address] [address] ORTHOPEDIC SURGERY 07/14/23 Jalil Paulson MD [address] [address] Ophthalmology 11/09/23 06/02/24 Gringer Specialist Rheumatology 07/14/23 11/08/23 Brimer Specialist Rheumatology 11/09/23 Trivedi Specialist PAIN MANAGEMENT 12/18/23 Tallat Specialist Rheumatology 06/03/24 [facility] neurology Specialist Neurology 06/03/24 Pulliat Specialist Optometry 06/03/24 documented as of this encounter
--- OUTSIDE RECORDS SUMMARY | 2025-08-21 17:39 | XMS_ITS | Encounter Summary ---
Author Organization [facility] Address [address] [place] [address] Care Team Providers Care Health Care Coach Name Role Phone Monty Allan MD Primary Care Provider [phone] [facility], Pcp Primary Care Provider [facility] Tasia Ash MD Primary Care Provider [phone] Jewel Manzano MD Unavailable [phone] Jalil Paulson MD Unavailable Unavailable Encounter Details Date Type Department Care Team Description 12/22/2021 Orders Only [facility] 175 [facility] [address] [place] [address] Jewel Manzano MD 175 [facility] [address] [place] [address] Social History Tobacco Use Types Packs/Day Years [...] on filedocumented in this encounter Care Teams Health Care Coach Relationship Specialty Start Date End Date Monty Allan MD 230 [place] [address] PCP - General Internal Medicine 02/16/15 07/12/22 [facility], [facility] [address] [place], [place] PCP - General Internal Medicine 07/13/22 04/26/23 Tasia Ash MD [address] [place] [address] PCP - General Internal Medicine 04/27/23 Jewel Manzano MD [address] [address] ORTHOPEDIC SURGERY 07/14/23 Jalil Paulson MD [address] [address] Ophthalmology 11/09/23 06/02/24 [facility] Specialist Rheumatology 07/14/23 11/08/23 Brimer Specialist Rheumatology 11/09/23 Trivedi Specialist PAIN MANAGEMENT 12/18/23 Tallat Specialist Rheumatology 06/03/24 [facility] neurology Specialist Neurology 06/03/24 Pull[facility] Specialist Optometry 06/03/24 documented as of this encounter
--- OUTSIDE RECORDS SUMMARY | 2025-08-21 17:39 | XMS_ITS | Encounter Summary ---
Author Organization [facility] Address [address] [place] [address] Care Team Providers Care Legal Administrative Secretary Name Role Phone Monty Allan MD Primary Care Provider [facility], Pcp Primary Care Provider UnavailTasia Barnhart MD Primary Care Provider [phone] Jewel Manzano MD Unavailable [phone] Jalil Paulson MD Unavailable Unavailable Encounter Details Date Type Department Care Team Description 07/28/2018 [facility] Medical Records [address] [place] [address] Terence Keenan MD [address] [place] [address] Social History Tobacco Use Types Packs/Day Years [...] on filedocumented in this encounter Care Teams Legal Administrative Secretary Relationship Specialty Start Date End Date Monty Allan MD [address] [place] [address] PCP - General Internal Medicine 02/16/15 07/12/22 [facility] Pcp [address] [place] [address] PCP - General Internal Medicine 07/13/22 04/26/23 Tasia Ash MD [address] [place] [address] PCP - General Internal Medicine 04/27/23 Jewel Manzano MD 175 [facility] [address] [place] [address] ORTHOPEDIC SURGERY 07/14/23 Jalil Paulson MD [address] [address] Ophthalmology 11/09/23 06/02/24 Gringer Specialist Rheumatology 07/14/23 11/08/23 Brimer Specialist Rheumatology 11/09/23 Trivedi Specialist PAIN MANAGEMENT 12/18/23 Tallat Specialist Rheumatology 06/03/24 [facility] neurology Specialist Neurology 06/03/24 Pulliat Specialist Optometry 06/03/24 documented as of this encounter
--- OUTSIDE RECORDS SUMMARY | 2025-08-21 17:39 | XMS_ITS | Encounter Summary ---
Author Organization [facility] Address [address] [place] [address] Care Team Providers Care Health And Safety Consultant Name Role Phone Monty Allan MD Primary Care Provider [facility], Pcp Primary Care Provider [facility] Tasia Ash MD Primary Care Provider [phone] Jewel Manzano MD Unavailable [phone] Jalil Paulson MD Unavailable Unavailable Encounter Details Date Type Department Care Team Description 01/04/2022 SCAN [facility] 175 [facility] [address] [place] [address] Jewel Manzano MD 175 [facility] [address] [place] [address] Social History Tobacco Use Types Packs/Day Years [...] filedocumented in this encounter Care Teams Health And Safety Consultant Relationship Specialty Start Date End Date Monty Allan MD [address] [place] [address] PCP - General Internal Medicine 02/16/15 07/12/22 [facility], [facility] [address] [place], [place] PCP - General Internal Medicine 07/13/22 04/26/23 Tasia Ash MD [address] [place] [address] PCP - General Internal Medicine 04/27/23 Jewel Manzano MD [address] [address] ORTHOPEDIC SURGERY 07/14/23 Jalil Paulson MD [address] [address] Ophthalmology 11/09/23 06/02/24 [facility] Specialist Rheumatology 07/14/23 11/08/23 Brimer Specialist Rheumatology 11/09/23 Trivedi Specialist PAIN MANAGEMENT 12/18/23 Tallat Specialist Rheumatology 06/03/24 [facility] neurology Specialist Neurology 06/03/24 Pulliat Specialist Optometry 06/03/24 documented as of this encounter
--- OUTSIDE RECORDS SUMMARY | 2025-08-21 17:39 | XMS_ITS | Encounter Summary ---
Author Organization [facility] Address [address] [place] [address] Care Team Providers Care Record Changer Name Role Phone Monty Allan MD Primary Care Provider [phone] [facility], Pcp Primary Care Provider UnavailTasia Barnhart MD Primary Care Provider [phone] Jewel Manzano MD Unavailable [phone] Jalil Paulson MD Unavailable Unavailable Reason for Visit * Reason Onset Date Comments Advice 08/01/2018 Encounter Details Date Type Department Care Team Description 08/01/2018 Telephone General Surgery - [address] [place] [address] Terence Keenan MD [address] [place] [address] Advice Social History Tobacco Use Types Packs/Day Years [...] encounter Miscellaneous Notes * Telephone Encounter - Sarah Richmond M.A. - 08/01/2018 8:44 AM EDT Called patient she says for 2 days the pain is worse she is taking oxycodone 10 mg she is taking the oxy every 4 hrs and motrin 2.5 hrs , [place] this morning Woke her up this morning appt given to come right in to the office to see Indy BOOTHE . * Telephone Encounter - Becca Castillo - 08/01/2018 8:38 AM EDT María had emergency surgery by Dr. Keenan 07-28-18...Incarcerated ventral hernia repair. Has an appointment to see him tomorrow but is in a lot of pain. Pain medication not touching it.. feels like someone is stabbing her in the right lower abdomen Please advise. documented in this encounter Plan of Treatment Not on file documented as of this encounter Visit Diagnoses Not on filedocumented in this encounter Care Teams Record Changer Relationship Specialty Start Date End Date Monty Allan MD [address] [place] [address] PCP - General Internal Medicine 02/16/15 07/12/22 [facility], Pcp [address] [place], [place] PCP - General Internal Medicine 07/13/22 04/26/23 Tasia Ash MD [address] [place] [address] PCP - General Internal Medicine 04/27/23 Jewel Manzano MD [address] [address] ORTHOPEDIC SURGERY 07/14/23 Jalil Paulson MD [address] [address] Ophthalmology 11/09/23 06/02/24 [facility]ringer Specialist Rheumatology 07/14/23 11/08/23 Brimer Specialist Rheumatology 11/09/23 Trivedi Specialist PAIN MANAGEMENT 12/18/23 Tallat Specialist Rheumatology 06/03/24 [facility] neurology Specialist Neurology 06/03/24 Pulliat Specialist Optometry 06/03/24 documented as of this encounter
--- OUTSIDE RECORDS SUMMARY | 2025-08-21 17:39 | XMS_ITS | Encounter Summary ---
Author Organization [facility] Address [address] [place] [address] Care Team Providers Care Industrial Retrofit Designer Name Role Phone Monty Allan MD Primary Care Provider [phone] [facility], Pcp Primary [facility] Provider [facility] Tasia Rush MD Primary Care Provider [phone] Jewel Manzano MD Unavailable [phone] Jalil Paulson MD Unavailable Unavailable Encounter Details Date Type Department Care Team Description 09/15/2016 Release of Information Medical Records [address] [place] [id number] Abstract, Provider Social History Tobacco Use Types Packs/Day Years Used Date Smoking Tobacco: Every Day Cigarettes 1 15 Alcohol Use Standard Drinks/Week Comments Yes 0 [...] on filedocumented in this encounter Care Teams Industrial Retrofit Designer Relationship Specialty Start Date End Date Monty Allan MD [address] [place] [address] PCP - General Internal Medicine 02/16/15 07/12/22 [facility], Pcp [address] [place] [address] PCP - General Internal Medicine 07/13/22 04/26/23 Tasia Ash MD [address] [place] [address] PCP - General Internal Medicine 04/27/23 Jewel Manzano MD [address] [address] ORTHOPEDIC SURGERY 07/14/23 Jalil Paulson MD [address] [address] Ophthalmology 11/09/23 06/02/24 Gringer Specialist Rheumatology 07/14/23 11/08/23 Brimer Specialist Rheumatology 11/09/23 Trivedi Specialist PAIN MANAGEMENT 12/18/23 Tallat Specialist Rheumatology 06/03/24 [facility] neurology Specialist Neurology 06/03/24 Amauriiat Specialist Optometry 06/03/24 documented as of this encounter
--- OUTSIDE RECORDS SUMMARY | 2025-08-21 17:39 | XMS_ITS | Encounter Summary ---
Author Organization [facility] Address [address] [place] [address] Care Team Providers Care Academic Counselor Name Role Phone Monty Allan MD Primary Care Provider [phone] [facility], Pcp Primary Care Provider Tasia Stallings MD Primary Care Provider [phone] Jewel Manzano MD Unavailable [phone] Jalil Paulson MD Unavailable Unavailable Reason for Visit * Reason Onset Date Comments Abnormal Mammogram 07/19/2016 Encounter Details Date Type Department Care Team Description 07/19/2016 Telephone General Surgery [address] [place] [address] Terence Keenan MD [address] [place] [address] Abnormal Mammogram Social History Tobacco Use Types Packs/Day Years [...] Telephone Encounter - Sarah Richmond M.A. - 07/19/2016 12:07 PM EDT Patient called stating upset that she does not have an appt for her core BX , I tried to explained to her that I faxed everything over to [facility] , she stopped me and said that , that's not what was told to her by Dr.Frank ENRIQUE THAT'S NOT ACCEPTABLE and wants to talk to Dr.Frank ENRIQUE . I faxed everythingearly this morning and called and they cant book an appt until they have the film and the doctor looks at it . She wants a call back from DR.frank ENRIQUE her number [phone] documented in this encounter Plan of Treatment Not on file documented as of this encounter Visit Diagnoses Not on filedocumented in this encounter Care Teams Academic Counselor Relationship Specialty Start Date End Date Monty Allan MD [address] [place] [address] PCP - General Internal Medicine 02/16/15 07/12/[address] PCP - General Internal Medicine 07/13/22 04/26/23 Tasia Ash MD [address] [place] [address] PCP - General Internal Medicine 04/27/23 Jewel Manzano MD [address] [address] ORTHOPEDIC SURGERY 07/14/23 Jalil Paulson MD [address] [address] Ophthalmology 11/09/23 06/02/24 [facility]ringer Specialist Rheumatology 07/14/23 11/08/23 Brimer Specialist Rheumatology 11/09/23 Trivedi Specialist PAIN MANAGEMENT 12/18/23 Tallat Specialist Rheumatology 06/03/24 [facility] neurology Specialist Neurology 06/03/24 Pull[facility] Specialist Optometry 06/03/24 documented as of this encounter
--- OUTSIDE RECORDS SUMMARY | 2025-08-21 17:39 | XMS_ITS | Encounter Summary ---
Author Organization [facility] Address [address] [place] [address] Care Team Providers Care Upper Extremity Surgeon Name Role Phone Monty Allan MD Primary Care Provider [facility], Pcp Primary Care Provider [facility] Tasia Ash MD Primary Care Provider [phone] Jewel Manzano MD Unavailable [phone] Jalil Paulson MD Unavailable Unavailable Encounter Details Date Type Department Care Team Description 01/13/2022 SCAN [facility] 175 [facility] [address] [place] [address] Jewel Manzano MD 175 [facility] [address] [place] [address] Social History Tobacco Use Types Packs/Day Years [...] have Coronavirus / COVID-19? No / Unsure 01/13/2022 1:29 PM EST documented as of this encounter Plan of Treatment Not on file documented as of this encounter Visit Diagnoses Not on filedocumented in this encounter Care Teams Upper Extremity Surgeon Relationship Specialty Start Date End Date Monty Allan MD [address] [place] [address] PCP - General Internal Medicine 02/16/15 07/12/22 [facility], [facility] [address] [place], [place] PCP - General Internal Medicine 07/13/22 04/26/23 Tasia Ash MD [address] [place] [address] PCP - General Internal Medicine 04/27/23 Jewel Manzano MD [address] [address] ORTHOPEDIC SURGERY 07/14/23 Jalil Paulson MD [address] [address] Ophthalmology 11/09/23 06/02/24 Gringer Specialist Rheumatology 07/14/23 11/08/23 Brimer Specialist Rheumatology 11/09/23 Trivedi Specialist PAIN MANAGEMENT 12/18/23 Tallat Specialist Rheumatology 06/03/24 [facility] neurology Specialist Neurology 06/03/24 Pull[facility] Specialist Optometry 06/03/24 documented as of this encounter
--- OUTSIDE RECORDS SUMMARY | 2025-08-21 17:39 | XMS_ITS | Clinical Summary ---
Author Organization [facility] Address [address] [place] [address] Care Team Providers Care Solids Control Technician Name Role Phone Vee Allan MD Primary [...] age to complete this topic Care Teams Solids Control Technician Relationship Specialty Start Date End Date Vee Allan MD PCP - General Internal Medicine 12/05/19
--- OUTSIDE RECORDS SUMMARY | 2025-08-21 17:39 | XMS_ITS | Encounter Summary ---
Author Organization [facility] Address [address] [place] [address] Care Team Providers Care Concrete Block Maker Name Role Phone Monty Allan MD Primary Care Provider [phone] [facility], Pcp Primary Care Provider UnavailTasia Barnhart MD Primary Care Provider [phone] Jewel Manzano MD Unavailable [phone] Jalil Paulson MD Unavailable Unavailable Reason for Visit * Reason Onset Date Comments TEST RESULTS 01/17/2019 Encounter Details Date Type Department Care Team Description 01/17/[address] [address] Kyle Barahona PA-C TEST RESULTS Social History Tobacco Use Types Packs/Day Years Used Date Smoking Tobacco: Every Day Cigarettes 0.5 15 Smokeless Tobacco: Never Alcohol Use Standard Drinks/Week Comments Yes 0 (1 standard drink = 0.6 oz pur e alcohol) Social Sex Assigned at Date Recorded Female 07/02/2024 12:20 PM EDT Job Start Date Occupation Industry Not on file Not on file Not on file documented as of this encounter Miscellaneous Notes * Telephone Encounter - Bailey Membreno M.A. - 01/17/2019 12:30 PM EDT Please book patient fu with Mr Barahona (if he feels she needs injection he will do it at ov) * Telephone Encounter - Vinod Navas - 01/17/2019 12:18 PM EDT Inform patient: ANY URGENT OR ABNORMAL RESULTS WIILL RESULT IN A CALL BACK TO THE PATIENT DIXON. Patient had a family emergency on 01/16/2019, wasn't able to come in. Patient is looking for injection for carpal tunnel. Please review and advise. Type of test: :EMG Date test was performed: Where was the test performed: [facility] Who ordered this test?: Kyle Barahona Is the doctor here today?: NO Can the message wait until the doctor returns?: NO IF PATIENT'S PCP IS NOT IN INSTRUCT PATIENT THAT THEY WILL RECEIVE A CALL BACK WHEN THE PCP IS IN THE OFFICE NEXT. documented in this encounter Plan of Treatment Not on file documented as of this encounter Visit Diagnoses Not on filedocumented in this encounter Care Teams Concrete Block Maker Relationship Specialty Start Date End Date Monty Allan MD [address] [place] [address] PCP - General Internal Medicine 02/16/15 07/12/22 [facility] [address] [place], [place] PCP - General Internal Medicine 07/13/22 04/26/23 Tasia Ash MD [address] [place] [address] PCP - General Internal Medicine 04/27/23 Jweel Manzano MD [address] [address] ORTHOPEDIC SURGERY 07/14/23 Jalil Paulson MD [address] [address] Ophthalmology 11/09/23 06/02/24 [facility] Specialist Rheumatology 07/14/23 11/08/23 Brimer Specialist Rheumatology 11/09/23 Trivedi Specialist PAIN MANAGEMENT 12/18/23 [facility] Specialist Rheumatology 06/03/24 [facility] neurology Specialist Neurology 06/03/24 [facility] Specialist Optometry 06/03/24 documented as of this encounter
--- OUTSIDE RECORDS SUMMARY | 2025-08-21 17:39 | XMS_ITS | Encounter Summary ---
Author Organization [facility] Address [address] [place] [address] Care Team Providers Care Freight Car Loader Name Role Phone Monty Allan MD Primary Care Provider [phone] [facility], Pcp Primary Care Provider UnavailTasia Barnhart MD Primary Care Provider [phone] Jewel Manzano MD Unavailable [phone] Jalil Paulson MD Unavailable Unavailable Encounter Details Date Type Department Care Team Description 07/30/2018 Orders Only General Surgery - [address] [place] [address] Terence Keenan MD [address] [place] [address] Social History Tobacco Use Types Packs/Day Years [...] on filedocumented in this encounter Care Teams Freight Car Loader Relationship Specialty Start Date End Date Monty Allan MD [address] [place] [address] PCP - General Internal Medicine 02/16/15 07/12/22 [facility] Pcp [address] [place] [address] PCP - General Internal Medicine 07/13/22 04/26/23 Tasia Ash MD [address] [place] [address] PCP - General Internal Medicine 04/27/23 Jewel Manzano MD 175 [facility] [address] [place] [address] ORTHOPEDIC SURGERY 07/14/23 Jalil Paulson MD [address] [address] Ophthalmology 11/09/23 06/02/24 [facility] Specialist Rheumatology 07/14/23 11/08/23 Brimer Specialist Rheumatology 11/09/23 Trivedi Specialist PAIN MANAGEMENT 12/18/23 Tallat Specialist Rheumatology 06/03/24 [facility] neurology Specialist Neurology 06/03/24 [facility] Specialist Optometry 06/03/24 documented as of this encounter
--- OUTSIDE RECORDS SUMMARY | 2025-08-21 17:39 | XMS_ITS | Encounter Summary ---
Author Organization [facility] Address [address] [place] [address] Care Team Providers Care Subpoena Server Name Role Phone Monty Allan MD Primary Care Provider [facility], Pcp Primary Care [facility] Tasia Ash MD Primary Care Provider [phone] Jewel Manzano MD Unavailable [phone] Jaill Paulson MD Unavailable Unavailable Encounter Details Date Type Department Care Team Description 01/13/2022 [facility] [address] [facility] [address] [place] [address] Jewel Manzano MD [address] [facility] [address] [place] [address] Social History Tobacco Use Types Packs/Day Years [...] on filedocumented in this encounter Care Teams Subpoena Server Relationship Specialty Start Date End Date Monty Allan MD [address] [place] [address] PCP - General Internal Medicine 02/16/15 07/12/22 [facility], [facility] [address] [place], [place] PCP - General Internal Medicine 07/13/22 04/26/23 Tasia Ash MD [address] [place] [address] PCP - General Internal Medicine 04/27/23 Jewel Manzano MD [address] [address] ORTHOPEDIC SURGERY 07/14/23 Jalil Paulson MD [address] [address] Ophthalmology 11/09/23 06/02/24 [facility] Rheumatology 07/14/23 11/08/23 [facility] Rheumatology 11/09/23 [facility] Specialist PAIN MANAGEMENT 12/18/23 [facility] Specialist Rheumatology 06/03/24 [facility] neurology Specialist Neurology 06/03/24 [facility]ist Optometry 06/03/24 documented as of this encounter
--- OUTSIDE RECORDS SUMMARY | 2025-08-21 17:39 | XMS_ITS | Encounter Summary ---
Author Organization [facility] Address [address] [place] [address] Care Team Providers Care Group Fitness Instructor Name Role Phone Monty Allan MD Primary Care Provider [phone] [facility], Pcp Primary Care Provider UnavailTasia Barnhart MD Primary Care Provider [phone] Jewel Manzano MD Unavailable [phone] Jalil Paulson MD Unavailable Unavailable Encounter Details Date Type Department Care Team Description 07/05/2021 Orders Only Adult Medicine - [address] [address] Henry Acevedo PA-C [address] [place] [id number] Thyroid nodule (Primary Dx) Social History Tobacco Use Types [...] have Coronavirus / COVID-19? No / Unsure 07/05/2021 2:29 PM EDT documented as of this encounter Plan of Treatment Not on file documented as of this encounter Visit Diagnoses Diagnosis Thyroid nodule- Primary Nontoxic uninodular goiter documented in this encounter Care Teams Group Fitness Instructor Relationship Specialty Start Date End Date Monty Allan MD [address] [place] [address] PCP - General Internal Medicine 02/16/15 07/12/22 [facility], [facility] [address] [place], [place] PCP - General Internal Medicine 07/13/22 04/26/23 Tasia Ash MD [address] [place] [address] PCP - General Internal Medicine 04/27/23 Jewel Manzano MD [address] [place] [address] ORTHOPEDIC SURGERY 07/14/23 Jalil Paulson MD [address] [address] Ophthalmology 11/09/23 06/02/24 [facility] Rheumatology 07/14/23 11/08/23 [facility] Specialist Rheumatology 11/09/23 Trivedi Specialist PAIN MANAGEMENT 12/18/23 [facility] Specialist Rheumatology 06/03/24 [facility] neurology Specialist Neurology 06/03/24 [facility] Specialist Optometry 06/03/24 documented as of this encounter
--- OUTSIDE RECORDS SUMMARY | 2025-08-21 17:39 | XMS_ITS | Encounter Summary ---
Author Organization [facility] Address [address] [place] [address] Care Team Providers Care Paper Products Printer Name Role Phone Monty Allan MD Primary Care Provider [phone] [facility], Pcp Primary Care Provider UnavailTasia Barnhart MD Primary Care Provider [phone] Jewel Manzano MD Unavailable [phone] Jalil Paulson MD Unavailable Unavailable Encounter Details Date Type Department Care Team Description 12/03/2021 Orders Only Orthopedics-[address] [address] Jarvis Bermeo PA-C Social History Tobacco Use Types Packs/Day [...] have Coronavirus / COVID-19? No / Unsure 12/06/2021 3:21 PM EST documented as of this encounter Plan of Treatment Not on file documented as of this encounter Visit Diagnoses Not on filedocumented in this encounter Care Teams Paper Products Printer Relationship Specialty Start Date End Date Monty Allan MD [address] [place] [address] PCP - General Internal Medicine 02/16/15 07/12/22 [facility] [address] [place] [address] PCP - General Internal Medicine 07/13/22 04/26/23 Tasia Ash MD [address] [place] [address] PCP - General Internal Medicine 04/27/23 Jewel Manzano MD [address] [address] ORTHOPEDIC SURGERY 07/14/23 Jalil aPulson MD [address] [address] Ophthalmology 11/09/23 06/02/24 [facility] Rheumatology 07/14/23 11/08/23 [facility] Specialist Rheumatology 11/09/23 Trivedi Specialist PAIN MANAGEMENT 12/18/23 [facility] Specialist Rheumatology 06/03/24 [facility] neurology Specialist Neurology 06/03/24 [facility] Specialist Optometry 06/03/24 documented as of this encounter
--- OUTSIDE RECORDS SUMMARY | 2025-08-21 17:40 | XMS_ITS | Clinical Summary ---
Author Organization [facility] Address [address] [place] [address] Phone Care Team Providers Care Retail Event Assistant Name Role Phone Araceli Augustin Primary [...] mouth 1 (one) time each day. Active cholecalcifero l (VITAMIN D-3) 25 mcg (1,000 unit) tablet Take 1 tablet (1,000 Units total) by mouth 1 (one) time each day. Active docusate sodium (COLACE) 100 mg capsule if needed. Active buPROPion XL (WELLBUTRIN XL) 150 mg 24 hr tablet Take 1 tablet (150 mg total) by mouth 1 (one) time each day. Do not crush, chew, or split. Active diazePAM (VALIUM) 5 mg tablet Take 1 tablet (5 mg total) by mouth 2 (two) times a day if needed. 5 Active cetirizine (ZyrTEC) 10 mg tablet Take 1 tablet (10 mg total) by mouth 1 (one) time each day. Active esomeprazole (NexIUM) [address] capsule Take 1 capsule (40 mg total) by mouth 1 (one) time each day before breakfast. Do not open capsule. 30 each 11 5 07/28/20 26 Active dicyclomine (BENTYL) 20 mg tablet Take 1 tablet (20 mg total) by mouth 4 (four) times a day if needed (Abdominal pain). 120 each 5 08/27/20 25 Active sucralfate (CARAFATE) 1 gram tablet Take 1 tablet (1 g total) by mouth 4 (four) times a day (before meals and nightly). Take 1 hour before meals and at bedtime 120 each 5 08/27/20 25 Active Orencia ClickJect 125 mg/mL injection Inject 1 mL (125 mg total) under the skin 1 (one) time per week. 07/28/20 25 Discontinued nicotine (NICODERM CQ) 21 mg/[address] 1 patch on the skin 1 (one) time each day. 30 each 5 07/28/20 25 Discontinued cloNIDine (CATAPRES) 0.1 mg tablet Take 1 tablet (0.1 mg total) by mouth 2 (two) times a day if needed. 5 07/28/20 25 Discontinued Gavilax 17 gram/dose oral powder TAKE 25.5GM ORALLY DAILY FOR 4 DAYS 5 07/28/20 25 Discontinued omeprazole (PriLOSEC) [address] capsule Take 1 capsule (20 mg total) by mouth 1 (one) time each day. Do not crush or chew. 30 each 2 5 07/28/20 25 Discontinued celecoxib (CeleBREX) 200 mg capsule Take 1 capsule (200 mg total) by mouth 2 (two) times a day. 60 each 5 07/28/20 25 Discontinued oxyCODONE (ROXICODONE) 5 mg immediate release tablet Take 1 tablet (5 mg total) by mouth every 6 (six) hours if needed for severe pain. 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 Phillips describes increasing issues with her lower back and legs. The lumbar CT from [facility] show degenerative disc disease but not stenosis. Her description of paresthesias and leg shaking raise concerns for stenosis. Her workup at the [facility] ER did not correlate with cauda equina syndrome. She is now awaiting a lumbar spine MRI at [place]. I be happy to review that once [...] this, is currently seeing 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 [facility], had injection in the right lower [...] Other specified anxiety disorders 02/09/2021 Rheumatoid arthritis ([facility] V24, [facility] V28) 12/25/2020 Carpal tunnel syndrome [...] Encounters Date Type Department Care Team Description 08/21/2025 12:00 PM EDT Evaluation [facility] Occupational Therapy 175 [facility] [address] [place] [phone] Nichelle Milian, OT 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) 08/14/2025 3:30 PM EDT Office Visit Orthopedic Surgery - [place] 250 175 [facility] [address] [place] [address] Von Mcclure MD Knee pain (Primary Dx); Post-traumatic osteoarthritis of left knee; Primary osteoarthritis of right knee 08/13/2025 Telephone Gastroenterology [facility] 175 [facility] 175 [facility] [address] [place] [address] Gia Lance NP 08/12/2025 3:45 PM EDT Office Visit Orthopedic Surgery [facility] 175 [facility] [address] [place] [address] Bessy Mesa MD Wrist pain (Primary Dx); Osteochondrosis of lunate of right wrist; Surgery follow-up 08/06/2025 Results Follow-Up Gastroenterology [facility] [address] [phone] Gia Lance NP 08/05/2025 Telephone Orthopedic Surgery [place] [address] [phone] Von Mcclure MD 08/04/2025 Telephone Orthopedic Surgery [place] [address] [address] Bessy Mesa MD 07/29/2025 3:45 PM EDT Office Visit Orthopedic Surgery [address] [phone] Bessy Mesa MD Osteochondrosis of lunate of right wrist (Primary Dx); Surgery follow-up 07/29/2025 Telephone Orthopedic Surgery [facility] [address] [phone] Von Mcclure MD 07/28/2025 2:40 PM EDT Office Visit Gastroenterology [facility] [address] [phone] Gia Lance NP Erosive gastropathy (Primary Dx); Abdominal pain, chronic, right upper quadrant; History of Helicobacter pylori infection; Esophageal dysmotility; Tobacco use disorder 07/24/2025 8:40 AM EDT Consult Endocrinology [facility] [address] [place] [phone] Marian Turner MD Hypothyroidism (acquired) (Primary Dx); Hyperthyroidism 07/24/2025 Telephone Orthopedic Surgery [facility] 175 [facility] [address] [place] [phone] Bessy Mesa MD 07/23/2025 3:30 PM EDT Office Visit Orthopedic Surgery [facility] 175 [facility] [address] [place] [phone] Nichelle Archibald PA Surgery follow-up (Primary Dx) 07/23/2025 Telephone Orthopedic Surgery [facility] 250 175 [facility] [address] [place] [phone] Jacquelyn Sow 07/16/2025 1:10 PM EDT Anesthesia Event [facility] Main OR [address] [place] [phone] Magda Siegel MD Chang, Ling [facility] 07/16/2025 12:30 PM EDT - 07/16/2025 2:00 PM EDT Surgery [facility] Main OR [address] [place] [phone] Bessy Mesa MD core decompression right distal radius [06696 (CPT )] 07/16/2025 10:33 AM EDT - 07/16/2025 4:05 PM EDT Hospital Encounter [facility] Main OR [address] [place] [phone] Bessy Mesa MD 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 (CMS/HCC V24, CMS/HCC V28) Discharge Disposition: Home or Self Care 07/16/2025 7:20 AM EDT - 07/16/2025 11:59 PM EDT Hospital Encounter [facility] Xray [address] [place] [phone] Pain Discharge Disposition: Home or Self Care 07/16/2025 Telephone Gastroenterology - [place] 175 [address] 175 [facility] [address] [place] [phone] Gia Lance NP 07/15/2025 Telephone Orthopedic Surgery [facility] [address] [address] Bessy Mesa MD 07/08/2025 6:02 PM EDT - 07/08/2025 10:10 PM EDT Emergency [facility] Emergency [address] [place] [phone] Jalil Steven MD Goebel, Mathew, MD Spinal stenosis of lumbar region, unspecified whether neurogenic claudication present (Primary Dx) Discharge Disposition: Home or Self Care 07/08/2025 3:15 PM EDT Consult Orthopedic Surgery [facility] [address] [phone] Bessy Mesa MD Osteochondrosis of lunate of left wrist (Primary Dx) 06/26/2025 Telephone Orthopedic Surgery [facility] [address] [phone] Siria Palumbo 06/25/2025 8:30 AM EDT Ancillary Procedure [facility] [address] [place] [address] [place] [address] Dyspnea on exertion 06/25/2025 Telephone Orthopedic [facility] [address] [phone] Bessy Mesa MD 06/20/2025 8:00 AM EDT Office Visit Orthopedic Surgery [facility] [address] [phone] Bessy Mesa MD Osteochondrosis of lunate of left wrist (Primary Dx) 06/20/2025 Telephone Orthopedic Surgery [place] [address] [address] [phone] Bessy Mesa MD 06/19/2025 Telephone Gastroenterology [facility] [address] [place] [address] Gia Lance NP 06/11/2025 Telephone Orthopedic Surgery [facility] 175 [facility] [address] [place] [phone] Nichelle Archibald PA 06/06/2025 Telephone Gastroenterology [facility] 175 [facility] 175 [facility] [address] [place] [phone] Gia Lance NP 06/05/2025 11:56 AM EDT Anesthesia Event [facility] Endoscopy [address] [place] [phone] Jewel Wilcox MD 06/05/2025 10:21 AM EDT - 06/05/2025 11:59 PM EDT Hospital Encounter [facility] Endoscopy [address] [place] [phone] Melba Bunn MD Steele, Matthew G, CRNA Zorn, Jamie M, MD Diarrhea, unspecified type; Change in bowel habits Discharge Disposition: Home or Self Care 06/05/2025 Telephone Orthopedic Surgery [facility] 250 175 [facility] [address] [place] [phone] Nichelle Archibald PA 06/04/2025 1:45 PM EDT Office Visit Orthopedic Surgery [facility] 175 [facility] [address] [place] [phone] Nichelle Archibald PA Arthritis of right wrist (Primary Dx) 05/28/2025 4:11 PM EDT - 05/28/2025 11:59 PM EDT Hospital Encounter [facility] CT Scan [address] [place] [phone] Solitary pulmonary nodule Discharge Disposition: Home or Self Care 05/26/2025 Telephone Gastroenterology [facility] 175 [facility] 175 [facility] [address] [place] [phone] Gia Lance NP from Last 3 Months Immunizations Immunization Administration Dates Next Due Hepatitis B (Jnftwot-A-Ywpea , Recombivax HB-Adult) 19yo and older 02/21/2022,01/17/2022 [...] tissue CARPAL TUNNEL RELEASE 01/20/2020 Right PROCEDURE: CA NEUROPLASTY &/TRANSPOS MEDIAN NRV CARPAL TUNNE COLONOSCOPY OTHER SURGICAL HISTORY 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 [facility] WRIST SURGERY 11/06/2021 - 11/05/2022 Left [...] Info) Description 08/28/2025 1:30 PM EDT [facility] [address] [place] [address] Nichelle Milian, OT 09/23/2025 3:45 PM EST Office Visit Orthopedic Surgery - [place] 175 [facility] [address] [place] [address] Bessy Mesa MD [address] [place] [phone] Health Maintenance Due Date Last Done Comments Zoster Vaccines (1 of 2) 1986 RSV Immunization Adult Patients (1 - Risk 50-74 years 1-dose series) 2017 Hepatitis B Vaccines (3 of 3 [...] Colorectal Cancer Screening: Colonoscopy 06/05/2032 06/05/2025, 08/15/2023 HIV Screening Completed 05/20/2024 Hepatitis C [...] on patient's age to complete this topic Goals Goal Patient Goal Type Associated Problems Recent Progress Patient-Stated? Author OT 6-8 visits General No Nichelle Milian, OT Note: 1> Indep HEP (splint weaning, ROM, pain manage, eventual strength) 2. 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 R wrist ext AROM at least 55 w/ tolerance for weightbearing during sit to stand 4. R wrist flex AROM at least 45 5. Reported tolerance for home manage/work duties of mod resistance not exceed 2/10 pain Procedures Procedure Name Priority Date/Time Associated Diagnosis Comments XR KNEE 4+ VIEWS BILAT Routine 08/14/2025 3:35 PM EDT Knee pain Post-traumatic osteoarthritis of left knee Primary osteoarthritis of right knee XR WRIST 3+ VIEWS RIGHT Routine 08/12/2025 [...] LMA(NO CHARGE) Routine 07/16/2025 1:23 PM EDT CA OSTEOTOMY RADIUS DISTAL THIRD 07/16/2025 1:09 PM [...] 05/28/2025 4:27 PM EDT Solitary pulmonary nodule MG MAMMO DIGITAL SCREENING W SG BILAT [...] Relevant to Health Maintenance Results * XR Knee 4+ Views bilat (08/14/2025 3:35 PM EDT) Anatomical Region Laterality Modality Lower Extremities, Knee Bilateral Computed Radiography Narrative 08/15/2025 11:44 AM EDT 4 views weightbearing of bilateral knees obtained [...] not progressed from prior x-rays obtained 01/22/2025. Von Mcclure MD IMG XR PROCEDURES Fin al Result * XR Wrist 3+ Views Right (08/12/2025 [...] detected Not detected 08/05/2025 2:52 PM EDT [facility] Comment: This test was performed at [facility] using a chemiluminescent immunoassay intended [...] Food and Drug Administration. Test performed at [facility], [address], [place] [address] Krystina Austin MD, PhD - Craps Manager Stool Rectum structure / Unknown Non-blood Collection / Unknown 07/30/2025 9:58 AM EDT 07/30/2025 9:58 AM EDT Gia Lance BASS GUITAR TEACHER LAB BODY FLUIDS AND STOOLS ROD ESCALANTE Final Result [facility] [address] [place] [address] * Thyroid stimulating hormone with reflex to free t4 and free t3 (07/24/2025 9:32 AM EDT) [facility] TSH 1.20 0.40 - 4.00 mcIU/mL LAB CHEMISTRY METHOD 07/24/2025 12:39 PM EDT [facility] Blood Venous blood specimen / Unknown Venipuncture / Unknown 07/24/2025 9:32 AM EDT 07/24/2025 9:32 AM EDT Marian Turner MD LAB BLOOD ORDERABLES Final Res ult [facility] [address] [place] [address], * Thyroid stimulating immunoglobulin (07/24/2025 9:32 AM EDT) [facility] Thyroid Stimulating Immunoglobulin <0.10 <0.10 IU/L 07/28/2025 7:54 PM EDT [facility] Comment: Thyroid stimulating immunoglobulins (TSI) concentrations greater than or equal to (>=) 0.55 IU/L have a clinical sensitivity of at least 98.6%, and a clinical specificity of at least 98.5%, for the differential diagnosis of Graves' Disease. TSI concentrations for patients with other thyroid or autoimmune diseases range from 0.11 to 0.39 IU/L. Test performed at [facility], [address] [place] [address] Krystina Austin MD, PhD - Craps Manager Blood Venous blood specimen / Unknown Venipuncture / Unknown 07/24/2025 9:32 AM EDT 07/24/2025 9:32 AM EDT Marian Turner MD LAB BLOOD ORDERABLES Final Res ult [facility] [address] [place] [address] * Triiodothyronine free (07/24/2025 9:32 AM EDT) T3, Free 316 230 - 420 pcg/dL LAB CHEMISTRY METHOD 07/24/2025 12:38 PM EDT [facility] Blood Venous blood specimen / Unknown Venipuncture / Unknown 07/24/2025 9:32 AM EDT 07/24/2025 9:32 AM EDT Marian Turner MD LAB BLOOD ORDERABLES Final Res ult Performing Organization Address [facility] de Phone Number [facility] [address] [place] [address], [place] [phone] * Thyroxine free (07/24/2025 9:32 AM EDT) Free T4 1.16 0.70 - 1.80 ng/dL LAB CHEMISTRY METHOD 07/24/2025 12:38 PM EDT [facility] Blood Venous blood specimen / Unknown Venipuncture / Unknown 07/24/2025 9:32 AM EDT 07/24/2025 9:32 AM EDT Marian Turner MD LAB BLOOD ORDERABLES Final Res ult Performing Organization Address City/[facility]/ZIP Co de Phone Number [facility] [address] [place] [address], [place] [phone] * Tissue exam (07/16/2025 1:50 PM EDT) Only the most recent of2 resultswithin the time period is included. Final Diagnosis Bone, Right, Distal Radius-decomp ression: -FRAGMENTS OF TRABECULAR BONE WITH NO SPECIFIC PATHOLOGIC CHANGE 07/18/2025 12:03 PM EDT [facility] Comment Intact specimen with articular cartilage is preferred specimen for evaluating avascular necrosis. 07/18/2025 12:03 PM EDT [facility] Gross Description A. Wrist, Right, Distal Radius: Labeled right dis wrist R . Received in formalin is a 1.4 x 0.8 x 0.2 cm aggregate of hard, rocha-red bone fragments which are wrapped in paper and submitted in toto in one cassette, multiple pieces, following decalcificati on. TS 07/18/2025 12:03 PM EDT [facility] Disclaimer Unless otherwise specified, all tissue is 10% NB formalin fixed and paraffin embedded. 07/18/2025 12:03 PM EDT [facility] Bone Structure of right wrist region / Unknown 07/16/2025 1:50 PM EDT 07/16/2025 3:19 PM EDT Bessy Mesa MD LAB PATHOLOGY ORDERABLES Nataliia vasquez Result [facility] [address] [place] [address], [place] [phone] * (ABNORMAL) Culture anaerobic with gram stain (07/16/2025 1:40 PM EDT) Culture, Anaerobic No Growth of Anaerobes. 07/24/2025 8:51 AM EDT [facility] Culture, Anaerobic Staphylococcus warneri(A) ABBEY 07/24/2025 8:51 AM EDT [facility] Comment: SPARSE Beta-lactamase negative The organism value for this result has been updated. These results have been appended to the previously preliminary verified report. Edited result: Previously reported as Gram Positive Cocci on 07/20/2025 at 0832 EDT. Culture, Anaerobic Streptococcus viridans group(A) ABBEY 07/24/2025 8:51 AM EDT [facility] Comment: SPARSE Susceptibility testing not [...] species,not anthracis(A) ABBEY 07/24/2025 8:51 AM EDT [facility] Comment: SPARSE The organism value for this result has been updated. These results have been appended to the previously preliminary verified report. Gram Stain Result Refer to Aerobic culture for gram stain results. 07/24/2025 8:51 AM EDT [facility] Swab Structure of right wrist [...] MICROBIOLOGY - GENERAL OR DERABLES Final Result Performing Organization Address [facility]/ZIP Co de Phone Number [facility] [address] [place] [address], [place] [phone] * Culture wound deep (07/16/2025 1:40 PM EDT) Culture, Wound No growth at 3 days 07/19/2025 10:14 AM EDT [facility] Gram Stain Result No polymorphonuclear leukocytes, No epithelial cells, and No organisms noted 07/19/2025 10:14 AM EDT [facility] Swab Structure of right wrist region / Unknown 07/16/2025 1:40 PM EDT 07/16/2025 2:37 PM EDT Bessy Mesa MD LAB MICROBIOLOGY - GENERAL OR DERABLES Final Result Performing Organization Address [facility] de Phone Number [facility] [address] [place] [address], [place] [phone] * TH AN LMA(NO CHARGE) (07/16/2025 1:23 [...] 07/16/2025 1:14 PMStop Time: 07/16/2025 1:14 PM us Magda Siegel MD ANESTHESIA ORDERABLES Fin al Result * MR Lumbar Spine wo Contrast (07/08/2025 8:29 PM EDT) Anatomical Region Laterality Modality L-spine, Spine Magnetic Resonan ce 07/08/2025 9:13 PM EDT Impressions 07/08/2025 9:13 PM EDT 1. Multilevel degenerative changes of the lumbar spine as described contributing to mild multifocal spinal canal stenosis T12-L1 through L4-L5, and rlbb-aw-gustxaim bilateral L4-L5 neural foraminal stenosis. 2. Unremarkable [...] spinal canal stenosis from T12-L1 through L4-L5. Mlld-gu-ylmhxbxk bilateral L4-L5 neural foraminal stenosis. Unremarkable appearance [...] spinal canal stenosis from T12-L1 through L4-L5. Fjju-ol-gzjcwpft bilateral L4-L5 neural foraminal stenosis. Unremarkable appearance of the conus medullaris and cauda equina. Paraspinous musculature intact. IMPRESSION: 1. Multilevel degenerative changes of the lumbar spine as described contributing to mild multifocal spinal canal stenosis T12-L1 through L4-L5, and shae-fn-xxeytukh bilateral L4-L5 neural foraminal stenosis. 2. Unremarkable appearance of the conus medullaris and cauda equina. This document has been electronically signed by: James Sheth MD on 07/08/2025 21:13:43 Jalil Steven MD IM MRI PROCEDURES Final Result * (ABNORMAL) CBC auto differential (07/08/2025 7:06 PM EDT) WBC 7.5 4.8 - 10.8 K/mcL LAB HEMETOLOGY METHOD 07/08/2025 7:22 PM EDT [facility] RBC 4.20 3.80 - 4.80 M/mcL LAB HEMETOLOGY METHOD [facility] Hemoglobin 13.8 11.5 - 16.0 g/dL LAB HEMETOLOGY METHOD 07/08/2025 [facility] Hematocrit 40.7 35.0 - 47.0 % LAB HEMETOLOGY METHOD 07/08/2025 7:[facility] MCV 97.4 79.0 - 98.0 FL LAB HEMETOLOGY METHOD 07/08/2025 7:[address] [facility] MCH 33.0(H) 27.0 - 32.0 pcg LAB HEMETOLOGY METHOD 07/08/2025 7:[facility] MCHC 33.9 32.0 - 37.0 g/dL LAB HEMETOLOGY METHOD 07/08/2025 7[facility] RDW 12.7 11.0 - 15.0 % LAB HEMETOLOGY METHOD 07/08/2025 7:[address] [facility] Platelets 311 130 - 400 K/mcL LAB HEMETOLOGY METHOD 07/08/2025 7:[address] [facility] MPV 9.3 7.0 - 11.0 FL LAB HEMETOLOGY METHOD 07/08/2025 7:[address] [facility] NRBC 0.0 <1.0 % LAB HEMETOLOGY METHOD 07/08/2025 7:[address] [facility] NRBC Absolute 0.00 <0.10 K/mcL LAB HEMETOLOGY METHOD 07/08/2025 7:[address] [facility] Neutrophils Relative 49.3 % LAB HEMETOLOGY METHOD 07/08/2025 7:[address] [facility] Lymphocytes Relative 39.4 % LAB HEMETOLOGY METHOD 07/08/2025 7:[address] [facility] Monocytes Relative 7.6 % LAB HEMETOLOGY METHOD 07/08/2025 7:[address] [facility] Eosinophils Relative 2.9 % LAB HEMETOLOGY METHOD 07/08/2025 7:[address] [facility] Basophils Relative 0.5 % LAB HEMETOLOGY METHOD 07/08/2025 7:[address] [facility] Immature Granulocytes Relative 0.3 % LAB HEMETOLOGY METHOD 07/08/2025 7:[address] [facility] Neutrophils Absolute 3.68 1.50 - 7.00 K/mcL LAB HEMETOLOGY METHOD 07/08/2025 7:[address] [facility] Lymphocytes Absolute 2.94 1.00 - 5.00 K/mcL LAB HEMETOLOGY METHOD 07/08/2025 7:[address] [facility] Monocytes Absolute 0.57 0.20 - 1.00 K/mcL LAB HEMETOLOGY METHOD 07/08/2025 7:[address] [facility] Eosinophils Absolute 0.22 0.00 - 0.50 K/mcL LAB HEMETOLOGY METHOD 07/08/2025 7:22 PM EDT [facility] Basophils Absolute 0.04 0.00 - 0.20 K/mcL LAB HEMETOLOGY METHOD 07/08/2025 7:22 PM EDT [facility] Immature Granulocytes Absolute 0.02 0.00 - 0.03 K/mcL LAB HEMETOLOGY METHOD 07/08/2025 7:22 PM EDT [facility] Blood Venous blood specimen / Unknown Venipuncture / Unknown 07/08/2025 7:06 PM EDT 07/08/2025 7:15 PM EDT Juan F Doshi MD LAB BLOOD ORDERABLES Final Result Performing Organization Address [facility]/ZIP Co de Phone Number [facility] [address] [place] [address], [place] [phone] * Lipase (07/08/2025 7:06 PM EDT) Lipase 19 13 - 75 unit/L LAB CHEMISTRY METHOD 07/08/2025 7:54 PM EDT [facility] Blood Venous blood specimen / Unknown Venipuncture / Unknown 07/08/2025 7:06 PM EDT 07/08/2025 7:15 PM EDT Juan F Doshi MD LAB BLOOD ORDERABLES Final Result Performing Organization Address City/[facility]/ZIP Co de Phone Number [facility] [address] [place] [address], [place] [phone] * Comprehensive metabolic panel (07/08/2025 7:06 PM EDT) Sodium 140 133 - 145 mmol/L LAB CHEMISTRY METHOD 07/08/2025 7:54 PM EDT [facility] Potassium 4.1 3.5 - 5.5 mmol/L LAB CHEMISTRY METHOD 07/08/2025 7:54 PM EDT [facility] Chloride 104 96 - 110 mmol/L LAB CHEMISTRY METHOD 07/08/2025 7:[address] [facility] CO2 29 21 - 32 mmol/L LAB CHEMISTRY METHOD 07/08/2025 7:[address] [facility] Anion Gap 7 3 - 11 LAB CHEMISTRY METHOD 07/08/2025 7:[address] [facility] Glucose 81 70 - 100 mg/dL LAB CHEMISTRY METHOD 07/08/2025 7:[address] [facility] BUN 8 5 - 25 mg/dL LAB CHEMISTRY METHOD 07/08/2025 7:[address] [facility] Creatinine 0.81 0.50 - 1.10 mg/dL LAB CHEMISTRY METHOD 07/08/2025 7:[address] [facility] eGFR 84 >=60 mL/min/1. 73m2 LAB CHEMISTRY METHOD 07/08/2025 7:[address] [facility] Comment:Calculation based on the Chronic Kidney Disease Epidemiology Collaboration (CKD-EPI) equation refit without adjustment for race. BUN/Creatinine Ratio 9.9 LAB CHEMISTRY METHOD 07/08/2025 7:[address] [facility] Calcium 9.8 8.5 - 10.5 mg/dL LAB CHEMISTRY METHOD 07/08/2025 7:[address] [facility] AST (SGOT) 23 10 - 42 unit/L LAB CHEMISTRY METHOD 07/08/2025 7:[address] [facility] ALT (SGPT) 29 10 - 60 unit/L LAB CHEMISTRY METHOD 07/08/2025 7:[address] [facility] Alkaline Phosphatase 102 42 - 121 unit/L LAB CHEMISTRY METHOD 07/08/2025 7:[address] [facility] Total Protein 6.8 6.0 - 8.0 g/dL LAB CHEMISTRY METHOD 07/08/2025 7:[address] [facility] Albumin 4.0 3.2 - 5.0 g/dL LAB CHEMISTRY METHOD 07/08/2025 7:54 PM EDT [facility] Total Bilirubin 0.5 0.0 - 1.4 mg/dL LAB CHEMISTRY METHOD 07/08/2025 7:54 PM EDT [facility] Blood Venous blood specimen / Unknown Venipuncture / Unknown 07/08/2025 7:06 PM EDT 07/08/2025 7:15 PM EDT us Juan F Doshi MD LAB BLOOD ORDERABLES Final Result [facility] [address] [place] [address], [place] [phone] * (ABNORMAL) TRANSTHORACIC ECHOCARDIOGRAM (TTE) COMPLETE (06/25/2025 9:10 AM EDT) Left Atrium Minor Jber 4.9 cm CV PACS Left Atrium Major Jber 4.9 cm CV PACS LA Area Sys [...] Volume 57 mL CV PACS MV Deceleration [place] 4.1 m/s2 CV PACS E Wave Deceleration [...] Details Overall the study quality was adequate. us Araceli BOOTHE CV ECHO PROCEDURES Final Result * COLONOSCOPY Anesthesia - MAC; SP ENDOSCOPY (06/05/2025 12:23 PM EDT) Anatomical Region [...] previously scheduled. Narrative 06/05/2025 12:27 PM EDT [facility] Patient Name: María Phillips [...] verified by the physician, the nurse, the scorer helper and the distance learning technician in the pre-procedure area in the [...] not prolapse). Procedure Code(s): --- Professional --- 95381, Colonoscopy, flexible; with biopsy, single or multiple Diagnosis Code(s): --- Professional --- R19.7, Diarrhea, unspecified CPT copyright 2020 [employer]. All rights reserved. The codes documented in this report are preliminary and upon gravity manager review may be revised to meet current compliance requirements. Melba Bunn MD 06/05/2025 12:27:19 PM This report has been signed electronically.Melba Bunn MD Number of Addenda: 0 Note Initiated On: 06/05/2025 11:57 AM Scope Withdrawal Time: 0 hours 6 minutes 22 seconds Scope In: 12:10:33 PM Scope Out: 12:23:27 PM Endoscopy Department at [facility] - [address] [place] [phone] Procedure Note Melba Bunn MD - 06/05/2025 [facility] GI Patient Name: María Phillips [...] the physician, the nurse, theanesthetist and the distance learning technician in the pre-procedure area in the [...] not prolapse). Procedure Code(s): --- Professional --- 09114, Colonoscopy, flexible; with biopsy, singleor multiple Diagnosis Code(s): --- Professional --- R19.7, Diarrhea, unspecified CPT copyright 2020 [employer]. All rights reserved. The codes documented in this report are preliminary and upon gravity manager reviewmay be revised to meet current compliance requirements. Melba Bunn MD 06/05/2025 12:27:19 PM This report has been signed electronically.Melba Bunn MD Number of Addenda: 0 Note Initiated On: 06/05/2025 11:57 AM Scope Withdrawal Time: 0 hours 6 minutes 22 seconds Scope In: 12:10:33 PM Scope Out: 12:23:27 PM Endoscopy Department at [facility] - [address] [place] [phone] IMPRESSION: - The examined portion of the [...] 2. No developing thoracic [place] ([id number]) -------- FINAL REPORT -------- Dictated By: Dayami Diehl Dictated Date: 06/02/2025 09:00 ET Assigned Physician: Dayami Diehl Reviewed and Electronically Signed By: Dayami Diehl Signed Date: 06/02/2025 09:13 ET Workstation ID: [id number] Transcribed By: Self Edit Transcribed Date: 06/02/2025 09:00 ET Narrative 06/02/2025 9:13 AM EDT History: Pulmonary nodule follow-up. Comparison: 12/05/24 Technique: Helical volumetric imaging of the thorax was performed without IV contrast. DLP: 279.09 mGy/cm Jack Robie [place] Iterative reconstruction technique Findings: The trachea and [...] was performed withoutIV contrast. DLP: 279.09 mGy/cm [place] Iterative reconstruction technique Findings: The trachea and [...] follow-up recommended. 2. No developing thoracic lymphadenopathy. Telechaka BOOTHE ([id number]) -------- FINAL REPORT -------- Dictated By: Dayami Diehl Dictated Date: 06/02/2025 09:00 ET Assigned Physician: Dayami Diehl Reviewed and Electronically Signed By: Dayami Diehl Signed Date: 06/02/2025 09:13 ET Workstation ID: [id number] Transcribed By: Self Edit Transcribed Date: 06/02/2025 09:00 ET Araceli BOOTHE IMG CT PROCEDURES Final Result * MG Mammo Digital Screening w Sg bilat (02/05/2025 10:40 AM EDT) Anatomical Region Laterality Modality Breast Bilateral Mammography 02/06/2025 9:43 AM EDT Impressions 02/06/2025 9:45 AM EDT No evidence of breast malignancy. BI-RADS CATEGORY: 1 - NEGATIVE RECOMMENDATION: Screening bilateral mammogram is recommended in 1 year. Mammo Location: [facility], [address] [place] [address], [id number], . -------- FINAL REPORT -------- Dictated By: Stefani Zamora Dictated Date: 02/06/2025 09:43 ET Assigned Physician: Stefani Zamora Reviewed and Electronically Signed By: Stefani Zamora Signed Date: 02/06/2025 09:45 ET Workstation ID: [id number] Transcribed By: Self Edit Transcribed Date: 02/06/2025 [...] year. Mammo Location: [facility], [address] [place] [address], [id number], . -------- FINAL REPORT -------- Dictated By: Stefani Zamora Dictated Date: 02/06/2025 09:43 ET Assigned Physician: Stefani Zamora Reviewed and Electronically Signed By: Stefani Zamora Signed Date: 02/06/2025 09:45 ET Workstation ID: [id number] Transcribed By: Self Edit Transcribed Date: 02/06/2025 09:43 ET Araceli BOOTHE IMG BI PROCEDURES Final Result * Lipid panel with reflex to direct LDL (10/28/2024 2:36 PM EST) Cholesterol 196 0 - 200 mg/dL LAB CHEMISTRY METHOD 10/28/2024 4:17 PM EST [facility] Triglycerides 51 0 - 150 mg/dL LAB CHEMISTRY METHOD 10/28/2024 4:17 PM EST [facility] HDL 111 >=40 mg/dL [...] 4:17 PM EST [facility] Chol/HDL Ratio 1.8 0.0 - 4.4 LAB CHEMISTRY METHOD 10/28/2024 4:17 PM [facility] Blood Venous blood specimen / Unknown Venipuncture / Unknown 10/28/2024 2:36 PM EST 10/28/2024 3:06 PM EST Araceli BOOTHE LAB BLOOD ORDERABLES Fin al Result [facility] [address] [place] [address], [place] [phone] * HIV Screening (05/20/2024) Pathologist [facility] HIV Screening abstracted Historical Provider HEALTH MAINTENANCE Final Result * Hepatitis C Screening (05/20/2024) Pathologist [facility] Hepatitis C Screening abstracted Historical Provider HEALTH MAINTENANCE Final Result * Cervical Cancer Screening: HPV (07/20/2023) Pathologist [facility] Cervical Cancer Screening: HPV no interpreta tion,abstr acted Historical Provider HEALTH MAINTENANCE Final Result from Last 3 Months or Most Recently Relevant to Health Maintenance Insurance [facility] CAMILA QUINONEZ [id number] Advance Directives * Full Code - Default [...] currently active code status orders. Care Teams Retail Event Assistant Relationship Specialty Start Date End Date Araceli Augustin PA [address] [place] [phone] [facility] - General 11/20/24
--- OUTSIDE RECORDS SUMMARY | 2025-08-21 17:40 | XMS_ITS | Encounter Summary ---
Author Organization [facility] Address [address] [place] [address] Care Team Providers Care Prepress Technician Name Role Phone Tasia Ash MD Primary Care Provider [phone] Jewel Manzano MD Unavailable [phone] Jalil Paulson MD Unavailable Unavailable Encounter Details Date Type Department Care Team Description 03/13/2024 Pt. Non Urgent Medic al Question Adult Medicine - [address] [address] Henry Acevedo PA-C [address] [place] [address] Social History Tobacco Use Types Packs/Day Years [...] encounter Miscellaneous Notes * Telephone Encounter - Vee Soliz M.A. - 03/13/2024 1:46 PM EDTFrom: María Phillips To: Magdalena Acevedo Sent: 03/13/2024 1:13 PM EDT Subject: Stomach pain and cramps Since this Dermatographia started, I???ve been getting stomach cramps. Pretty much off and on all day, every day. When the rash started I remember having abdominal pain. I didn???t mention it becauseit wasn???t that bad. It???s getting worse now and I???m not sure what to do. Please advise. Thank You. María documented in this encounter Plan of Treatment Not on file documented as of this encounter Visit Diagnoses Not on filedocumented in this encounter Care Teams Prepress Technician Relationship Specialty Start Date End Date Tasia Ash MD [address] [place] [address] PCP - General Internal Medicine 04/27/23 Jewel Manzano MD [address] [address] ORTHOPEDIC SURGERY 07/14/23 Jalil Paulson MD [address] [address] Ophthalmology 11/09/23 06/02/24 [facility] Specialist Rheumatology 11/09/23 [facility] Specialist PAIN MANAGEMENT 12/18/23 [place] Specialist Rheumatology 06/03/24 [facility] neurology Specialist Neurology 06/03/24 [facility] Specialist Optometry 06/03/24 documented as of this encounter
--- OUTSIDE RECORDS SUMMARY | 2025-08-21 17:40 | XMS_ITS | Encounter Summary ---
Author Organization [facility] Address [address] [place] [address] Care Team Providers Care Cellar Packer Name Role Phone Tasia Ash MD Primary Care Provider [phone] Jewel Manzano MD Unavailable [phone] Jalil Paulson MD Unavailable Unavailable Encounter Details Date Type Department Care Team Description 03/26/2024 Pt. Non Urgent Medic al Question Adult Medicine - [place] [address] [place] [address] Tasia Ash MD [address] [place] [address] Social History Tobacco Use Types Packs/Day Years [...] Notes * Telephone Encounter - Charley Ybarra L.P.NClive - 03/26/2024 1:50 PM EDTFrom: María Phillips To: César Ash Sent: 03/26/2024 1:50 PM EDT Subject: Labs I???ve been trying to call the Lab, concerning some blood work that my graduate rn faxed over from [facility]. I???ve been trying to call the lab to make sure the order is there, so I can come after work, but nobody is answering. I left a message. Can you please check to see if it???s there. Thank you. María documented in this encounter Plan of Treatment Not on file documented as of this encounter Visit Diagnoses Not on filedocumented in this encounter Care Teams Cellar Packer Relationship Specialty Start Date End Date Tasia Ash MD [address] [place] [address] PCP - General Internal Medicine 04/27/23 Jewel Manzano MD [address] [address] ORTHOPEDIC SURGERY 07/14/23 Jalil Paulson MD [address] [address] Ophthalmology 11/09/23 06/02/24 [facility] Specialist Rheumatology 11/09/23 [facility] Specialist PAIN MANAGEMENT 12/18/23 [facility] Specialist Rheumatology 06/03/24 [facility] neurology Specialist Neurology 06/03/24 [facility] Specialist Optometry 06/03/24 documented as of this encounter
--- OUTSIDE RECORDS SUMMARY | 2025-08-21 17:40 | XMS_ITS | Encounter Summary ---
Author Organization [facility] Address [address] [place] [address] Care Team Providers Care Data Management Manager Name Role Phone Tasia Ash MD Primary Care Provider [phone] Jewel Manzano MD Unavailable [phone] Jalil Paulson MD Unavailable Unavailable Encounter Details Date Type Department Care Team Description 05/20/2024 Orders Only Medical Records [address] [place], [place] [id number] [place] [address] Social History Tobacco Use Types Packs/Day Years [...] Name Priority Date/Time Associated Diagnosis Comments OUTSIDE CT Routine 05/19/2024 OUTSIDE PLAIN FILM Routine 05/19/2024 documented in this encounter Results * OUTSIDE CT (05/19/2024) Gaston Marmolejo MD RADIOLOGY * OUTSIDE PLAIN FILM (05/19/2024) [facility] RADIOLOGY documented in this encounter Visit Diagnoses Not on filedocumented in this encounter Care Teams Data Management Manager Relationship Specialty Start Date End Date Tasia Ash MD [address] [place] [address] PCP - General Internal Medicine 04/27/23 Jewel Manzano MD [address] [address] ORTHOPEDIC SURGERY 07/14/23 Jalil Paulson MD [address] [address] Ophthalmology 11/09/23 06/02/24 [facility] Specialist Rheumatology 11/09/23 [facility] Specialist PAIN MANAGEMENT 12/18/23 [facility] Specialist Rheumatology 06/03/24 [facility] neurology Specialist Neurology 06/03/24 [facility] Specialist Optometry 06/03/24 documented as of this encounter
--- OUTSIDE RECORDS SUMMARY | 2025-08-21 17:40 | XMS_ITS | Encounter Summary ---
Author Organization [facility] Address [address] [place] [address] Care Team Providers Care Magazine Publisher Name Role Phone Tasia Ash MD Primary Care Provider [phone] Jewel Manzano MD Unavailable [phone] Jalil Paulson MD Unavailable Unavailable Reason for Referral * EXTERNAL (Urgent) - No Auth Required Specialty Diagnoses / Procedures Referred By Contac t Referred To Contact Pulmonology Diagnoses Positive QuantiFERON-TB Gold test Apical lung nodule Procedures REFERRAL TO [facility] Miguel Avila PA [address] [place] [address] Simin Bone MD [address] [place] [address] Referral ID Status Reason Start Date Expiration Date V isits Requested Visits Authorized [id number] No Auth Required 05/15/2024 05/15/2025 1 1 Encounter Details Date Type Department Care Team Description 05/15/2024 Pt. Non Urgent Medical Question Adult Medicine - [place] [address] [place] [address] Tasia Ash MD [address] [place] [address] Positive QuantiFERON-TB Gold test (Primary Dx); Apical lung nodule Social History Tobacco Use Types Packs/Day Years [...] Telephone Encounter - Bessy العراقي L.P.N. - 05/15/2024 1:11 PM EDT From: María Phillips To: César Ash Sent: 05/15/2024 1:06 PM EDT Subject: Positive repeat tb I need a call back DIXON. 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 tuberculosis Apical lung nodule documented in this encounter Care Teams Magazine Publisher Relationship Specialty Start Date End Date Tasia Ash MD [address] [place] [address] PCP - General Internal Medicine 04/27/23 Jewel Manzano MD [address] [address] ORTHOPEDIC SURGERY 07/14/23 Jalil Paulson MD [address] [address] Ophthalmology 11/09/23 06/02/24 [facility] Specialist Rheumatology 11/09/23 [facility] Specialist PAIN MANAGEMENT 12/18/23 [facility] Specialist Rheumatology 06/03/24 [facility] neurology Specialist Neurology 06/03/24 [facility] Opt[facility] 06/03/24 documented as of this encounter
--- OUTSIDE RECORDS SUMMARY | 2025-08-21 17:40 | XMS_ITS | Encounter Summary ---
Author Organization [facility] Address [address] [place] [address] Care Team Providers Care Manager Control Name Role Phone Tasia Ash MD Primary Care Provider [phone] Jewel Manzano MD Unavailable [phone] Jalil Paulson MD Unavailable Unavailable Encounter Details Date Type Department Care Team Description 05/16/2024 Pt. Non Urgent Medic al Question Adult Medicine - [place] [address] [place] [address] Tasia Ash MD [address] [place] [address] Social History Tobacco Use Types Packs/Day Years [...] Notes * Telephone Encounter - Bessy العراقي L.P.NClive - 05/16/2024 7:15 AM EDT From: María Phillips To: César Ash Sent: 05/16/2024 6:21 AM EDT Subject: TB Clinic I know that once you???re diagnosed with TB, you are supposed to be seen within 2 weeks. Please note that the first positive test was found by me, Dated 03/28/24. So almost 2 months. Please expedite this DIXON. I called [facility] Disease control at the end of the day yesterday because I didn???t hear from them, like I was told I would. They sa id they have no referral for me!! My legs are getting very weak now. Pain with flexing during the night. And a constant buzzing and twitching. Definitely getting weaker. Not sure if this is from the remicade infusion I received on April 10 or the TB but itneeds to be addressed. 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 I???m not an expert on it, but it is vaishali alicia affecting my spine. Please pay attention to what I???m saying before it becomes an emergency documented in this encounter Plan of Treatment Not on file documented as of this encounter Visit Diagnoses Not on filedocumented in this encounter Care Teams Manager Control Relationship Specialty Start Date End Date Tasia Ash MD [address] [place] [address] PCP - General Internal Medicine 04/27/23 Jewel Manzano MD [address] [place] [address] ORTHOPEDIC SURGERY 07/14/23 Jalil Paulson MD [address] [address] Ophthalmology 11/09/23 06/02/24 [facility] Specialist Rheumatology 11/09/23 [facility] Specialist PAIN MANAGEMENT 12/18/23 [place] Specialist Rheumatology 06/03/24 [facility] neurology Specialist Neurology 06/03/24 [facility] 06/03/24 documented as of this encounter
--- OUTSIDE RECORDS SUMMARY | 2025-08-21 17:40 | XMS_ITS | Encounter Summary ---
Author Organization [facility] Address [address] [place] [address] Care Team Providers Care Operations Support Manager Name Role Phone Tasia Ash MD Primary Care Provider [phone] Jewel Manzano MD Unavailable [phone] Jalil Paulson MD Unavailable Unavailable Encounter Details Date Type Department Care Team Description 05/30/2024 Orders Only Adult Medicine - [place] [address] [place], [place] [phone] Miguel Avila PA [address] [place], [place] [phone] Facial pain Social History Tobacco Use Types Packs/Day [...] Procedure Name Priority Date/Time Associated Diagnosis Comments MRI ORBIT FACE NECK; W/WO CONTRAST MAT Routine 05/28/2024 Facial pain documented in this encounter Results * MRI ORBIT FACE NECK; W/WO CONTRAST MAT (05/28/2024) 05/28/2024 Miguel BOOTHE [facility] [address] [facility] documented in this encounter Visit Diagnoses Diagnosis Facial pain Headache documented in this encounter Care Teams Operations Support Manager Relationship Specialty Start Date End Date Tasia Ash MD [address] [place] [address] PCP - General Internal Medicine 04/27/23 Jewel Manzano MD 175 [facility] [address] [place] [address] ORTHOPEDIC SURGERY 07/14/23 Jalil Paulson MD [address] [address] Ophthalmology 11/09/23 06/02/24 [facility] Specialist Rheumatology 11/09/23 [facility] Specialist PAIN MANAGEMENT 12/18/23 [place] Specialist Rheumatology 06/03/24 [facility] neurology Specialist Neurology 06/03/24 [place] Specialist Optometry 06/03/24 documented as of this encounter
--- OUTSIDE RECORDS SUMMARY | 2025-08-21 17:40 | XMS_ITS | Encounter Summary ---
Author Organization [facility] Address [address] [place] [address] Care Team Providers Care Rn Care Transition Name Role Phone Tasia Ash MD Primary Care Provider [phone] Jewel Manzano MD Unavailable [phone] Jalil Paulson MD Unavailable Unavailable Encounter Details Date Type Department Care Team Description 04/30/2024 Pt. Non Urgent Medic al Question Adult Medicine - [place] [address] [place] [address] Tasia Ash MD [address] [place], [place] [phone] Social History Tobacco Use Types Packs/Day Years [...] on filedocumented in this encounter Care Teams Rn Care Transition Relationship Specialty Start Date End Date Tasia Ash MD [address] [place] [address] PCP - General Internal Medicine 04/27/23 Jewel Manzano MD [address] [address] ORTHOPEDIC SURGERY 07/14/23 Jalil Paulson MD [address] [address] Ophthalmology 11/09/23 06/02/24 [facility] Specialist Rheumatology 11/09/23 [facility] Specialist PAIN MANAGEMENT 12/18/23 [place] Specialist Rheumatology 06/03/24 [facility] neurology Specialist Neurology 06/03/24 [facility] Opt[facility] 06/03/24 documented as of this encounter
--- OUTSIDE RECORDS SUMMARY | 2025-08-21 17:40 | XMS_ITS | Encounter Summary ---
Author Organization [facility] Address [address] [place] [address] Care Team Providers Care Watcher [employer] Name Role Phone Tasia Ash MD Primary Care Provider [phone] Jewel Manzano MD Unavailable [phone] Encounter Details Date Type Department Care Team Description 07/09/2024 Pt. Non Urgent Medic al Question Adult Medicine - [place] [address] [place] [address] Tasia Ash MD [address] [place] [address] Social History Tobacco Use Types Packs/Day Years [...] Telephone Encounter - Vee Soliz M.A. - 07/10/2024 10:02 AM EDTFrom: María Phillips To: César Ash Sent: 07/09/2024 7:40 PM EDT Subject: Thyroid I visited my dentist yesterday to have them check my teeth and jaw, because of the pain in my glands and jaw. Although there are no big issues with my jaw other than a slight TMJ, He recommended thatI have my thyroid re-checked. He said it felt somewhat swollen. Possibly an ultrasound and a thyroid panel. Thank You documented in this encounter Plan of Treatment Not on file documented as of this encounter Visit Diagnoses Not on filedocumented in this encounter Care Teams Watcher [employer] Relationship Specialty Start Date End Date Tasia Ash MD [address] [place] [address] PCP - General Internal Medicine 04/27/23 Jewel Manzano MD [address] [address] ORTHOPEDIC SURGERY 07/14/23 [facility] Specialist Rheumatology 11/09/23 [facility] Specialist PAIN MANAGEMENT 12/18/23 [place] Specialist Rheumatology 06/03/24 [facility] neurology Specialist Neurology 06/03/24 [facility] 06/03/24 documented as of this encounter
--- OUTSIDE RECORDS SUMMARY | 2025-08-21 17:40 | XMS_ITS | Encounter Summary ---
Author Organization [facility] Address [address] [place] [address] Care Team Providers Care Building Code Inspector Name Role Phone Monty Allan MD Primary Care Provider [phone] [facility], Pcp Primary Care Provider [facility] Tasia Rush MD Primary Care Provider +1 [phone] Jewel Manzano MD Unavailable [phone] Jalil Paulson MD Unavailable Unavailable Reason for Visit * Reason Onset Date Comments Form 04/25/2022 [facility] paperwork fredy zhang at pts appt. Encounter Details Date Type Department Care Team Description 04/25/2022 Telephone Adult Medicine - [place] [address] [place] [address] Monty Allan MD [address] [place] [address] Form ([facility] paperwork given at pts appt. ) Social History Tobacco Use Types Packs/Day Years [...] Exposure Response Date Recorded In the last 10 days, have yo u been in contact with someone who was confirmed or suspected to have Coronavirus/COVID-19? No / Unsure 04/22/2022 11:47 AM EDT documented as of this encounter Miscellaneous Notes * Telephone Encounter - Nichelle Hernandez M.A. - 04/25/2022 11:40 AM EDT [facility] paperwork was faxed today to [phone] requested by Dr Longoria. * Telephone Encounter - Nichelle Hernandez M.A. - 04/25/2022 11:39 AM EDT [facility] paperwork that was completed with Dr Huyen Longoria at appointment. documented in this encounter Plan of Treatment Not on file documented as of this encounter Visit Diagnoses Not on filedocumented in this encounter Care Teams Building Code Inspector Relationship Specialty Start Date End Date Monty Allan MD [address] [place] [address] PCP - General Internal Medicine 02/16/15 07/12/22 [facility], Pcp [address] [place], [place] PCP - General Internal Medicine 07/13/22 04/26/23 Tasia Ash MD [address] [place], [place] PCP - General Internal Medicine 04/27/23 Jewel Manzano MD [address] [address] ORTHOPEDIC SURGERY 07/14/23 Jalil Paulson MD [address] [address] Ophthalmology 11/09/23 06/02/24 Gringer Specialist Rheumatology 07/14/23 11/08/23 Brimer Specialist Rheumatology 11/09/23 Trivedi Specialist PAIN MANAGEMENT 12/18/23 Tallat Specialist Rheumatology 06/03/24 [facility] neurology Specialist Neurology 06/03/24 Pulliat Specialist Optometry 06/03/24 documented as of this encounter
--- OUTSIDE RECORDS SUMMARY | 2025-08-21 17:40 | XMS_ITS | Encounter Summary ---
Author Organization [facility] Address [address] [place] [address] Care Team Providers Care Food Mixer Assembler Name Role Phone Tasia Ash MD Primary Care Provider +1 [phone] Jewel Manzano MD Unavailable [phone] Jalil Paulson MD Unavailable Unavailable Encounter Details Date Type Department Care Team Description 05/07/2024 Pt. Non Urgent Medic al Question Adult Medicine - [address] [address] eHnry Acevedo PA-C [address] [place] [address] Social History Tobacco Use Types Packs/Day Years [...] Telephone Encounter - Nichelle Hernandez M.A. - 05/07/2024 11:44 AM EDTFrom: María Phillips To: Magdalena Acevedo Sent: 05/07/2024 11:38 AM EDT Subject: Dermatographia I am sending this message to you because you diagnosed this initially. I am having more complex problems now with this skin condition. I am having extreme bouts of rashes and itchiness out of the blue. I can???t even touch my skin without extreme pain. Also abdominal pain and diarrhea seems to accompany this. I really feel awful. Numbnes s and tingling also. It is really starting to frighten me. I took the hydroxyzine and benedryl this morning because it wouldn???t go away. Please advise. ThankYou. Daniel documented in this encounter Plan of Treatment Not on file documented as of this encounter Visit Diagnoses Not on filedocumented in this encounter Care Teams Food Mixer Assembler Relationship Specialty Start Date End Date Tasia Ash MD [address] [place] [address] PCP - General Internal Medicine 04/27/23 Jewel Manzano MD [address] [address] ORTHOPEDIC SURGERY 07/14/23 Jalil Paulson MD 175 [facility] [address] [place] [address] Ophthalmology 11/09/23 06/02/24 Brimer Specialist Rheumatology 11/09/23 Trivedi Specialist PAIN MANAGEMENT 12/18/23 Tallat Specialist Rheumatology 06/03/24 [facility] neurology Specialist Neurology 06/03/24 Erica Specialist Optometry 06/03/24 documented as of this encounter
--- OUTSIDE RECORDS SUMMARY | 2025-08-21 17:40 | XMS_ITS | Encounter Summary ---
Author Organization [facility] Address [address] [place] [address] Care Team Providers Care Natural Gas Engineer Name Role Phone Tasia Ash MD Primary Care Provider [phone] [phone] Jewel Manzano MD Unavailable [phone] Jalil Paulson MD Unavailable Unavailable Encounter Details Date Type Department Care Team Description 04/02/2024 Telephone [facility] [address] [phone] Von Mcclure MD [address] [address] Social History Tobacco Use Types Packs/Day Years [...] encounter Miscellaneous Notes * Telephone Encounter - Carline Alejo - 04/02/2024 10:13 AM EDT María sent a MyChart message on 04/01/24 stating she had fallen down the stairs and presented to the [facility] ED. She had an X-ray and was given crutches. I called the patient to offer her an appoinment with Irma on 04/09/24 but she declined and stated that it is unacceptable to make her wait that long after an injury and requested to speak to an office assistant receptionist. Patient also requested that Dr. Mcclure call her to review her X-ray with her and I let her know that we do not have access Trish Sabillon's medical records and that she would have to bring in a disc to be read. Patient stated that she will try to be seen somewhere else sooner. I let her know that she can give us a call if she is unable to be seen somewhere else sooner. Patient agreed. documented in this encounter Plan of Treatment Not on file documented as of this encounter Visit Diagnoses Not on filedocumented in this encounter Care Teams Natural Gas Engineer Relationship Specialty Start Date End Date Tasia Ash MD [address] [place] [address] PCP - General Internal Medicine 04/27/23 Jewel Manzano MD [address] [address] ORTHOPEDIC SURGERY 07/14/23 Jalil Paulson MD [address] [address] Ophthalmology 11/09/23 06/02/24 Brimer Specialist Rheumatology 11/09/23 Trivedi Specialist PAIN MANAGEMENT 12/18/23 Tallat Specialist Rheumatology 06/03/24 [facility] neurology Specialist Neurology 06/03/24 [facility] 06/03/24 documented as of this encounter
--- OUTSIDE RECORDS SUMMARY | 2025-08-21 17:40 | XMS_ITS | Encounter Summary ---
Author Organization [facility] Address [address] [place] [address] Care Team Providers Care Setup Operator Name Role Phone Tasia Ash MD Primary Care Provider [phone] Jewel Manzano MD Unavailable [phone] Jalil Paulson MD Unavailable Unavailable Encounter Details Date Type Department Care Team Description 04/03/2024 [facility] [address] [phone] Von Mcclure MD [address] [address] Social History Tobacco Use Types Packs/Day Years [...] on filedocumented in this encounter Care Teams Setup Operator Relationship Specialty Start Date End Date Tasia Ash MD [address] [place] [address] PCP - General Internal Medicine 04/27/23 Jewel Manzano MD 175 [facility] [address] [place] [address] ORTHOPEDIC SURGERY 07/14/23 Jalil Paulson MD [address] [address] Ophthalmology 11/09/23 06/02/24 Brimer Specialist Rheumatology 11/09/23 Trivedi Specialist PAIN MANAGEMENT 12/18/23 Tallat Specialist Rheumatology 06/03/24 [facility] neurology Specialist Neurology 06/03/24 Pulliat Specialist Optometry 06/03/24 documented as of this encounter
--- OUTSIDE RECORDS SUMMARY | 2025-08-21 17:40 | XMS_ITS | Encounter Summary ---
Author Organization [facility] Address [address] [place] [address] Care Team Providers Care Rectifier Operator Name Role Phone Tasia Ash MD Primary Care Provider [phone] Jewel Manzano MD Unavailable [phone] Jalil Paulson MD Unavailable Unavailable Encounter Details Date Type Department Care Team Description 04/11/2024 Pt. Non Urgent Medic al Question Adult Medicine - [place] [address] [place] [address] Tasia Ash MD [address] [place] [address] Social History Tobacco Use Types Packs/Day Years [...] Telephone Encounter - Bessy العراقي L.P.N. - 04/11/2024 12:49 PM EDT From: María Phillips To: César Ash Sent: 04/11/2024 12:21 PM EDT Subject: Appointment I received a call on April 08, to make an appointment to be seen. Could you please schedule me for a Monday anytime or any other day after 3. Thank you. María documented in this encounter Plan of Treatment Not on file documented as of this encounter Visit Diagnoses Not on filedocumented in this encounter Care Teams Rectifier Operator Relationship Specialty Start Date End Date Tasia Ash MD [address] [place] [address] PCP - General Internal Medicine 04/27/23 Jewel Manzano MD [address] [address] ORTHOPEDIC SURGERY 07/14/23 Jalil Paulson MD [address] [address] Ophthalmology 11/09/23 06/02/24 Brimer Specialist Rheumatology 11/09/23 Trivedi Specialist PAIN MANAGEMENT 12/18/23 Tallat Specialist Rheumatology 06/03/24 [facility] neurology Specialist Neurology 06/03/24 [facility] Specialist Optometry 06/03/24 documented as of this encounter
--- OUTSIDE RECORDS SUMMARY | 2025-08-21 17:40 | XMS_ITS | Encounter Summary ---
Author Organization [facility] Address [address] [place] [address] Care Team Providers Care Petrography Teacher Name Role Phone Monty Allan MD Primary Care Provider [phone] [facility], Pcp Primary Care Provider Tasia Stallings MD Primary Care Provider +[phone] Jewel Manzano MD Unavailable [phone] Jalil Paulson MD Unavailable Unavailable Encounter Details Date Type Department Care Team Description 04/12/2022 Washroom Cleaner Report Medical Records [address] [place] [address] Abstract, Provider Social History Tobacco Use Types [...] suspected to have Coronavirus/COVID-19? No / Unsure 03/14/2022 1:47 PM EDT documented as of this encounter Plan of Treatment Not on file documented as of this encounter Visit Diagnoses Not on filedocumented in this encounter Care Teams Petrography Teacher Relationship Specialty Start Date End Date Monty Allan, [address] [place] [address] PCP - General Internal Medicine 02/16/15 07/12/22 [facility] Pcp [address] [place] [address] PCP - General Internal Medicine 07/13/22 04/26/23 Tasia Ash MD [address] [place] [address] PCP - General Internal Medicine 04/27/23 Jewel Manzano MD 175 [facility] [address] [place] [address] ORTHOPEDIC SURGERY 07/14/23 Jalil Paulson MD [address] [address] Ophthalmology 11/09/23 06/02/24 Gringer Specialist Rheumatology 07/14/23 11/08/23 Brimer Specialist Rheumatology 11/09/23 Trivedi Specialist PAIN MANAGEMENT 12/18/23 Tallat Specialist Rheumatology 06/03/24 [facility] neurology Specialist Neurology 06/03/24 Amauriiat Specialist Optometry 06/03/24 documented as of this encounter
--- OUTSIDE RECORDS SUMMARY | 2025-08-21 17:40 | XMS_ITS | Encounter Summary ---
Author Organization [facility] Address [address] [place] [address] Care Team Providers Care Self Propelled Hot Mix Roller Operator Name Role Phone Tasia Ash MD Primary Care Provider [phone] Jewel Manzano MD Unavailable [phone] Jalil Paulson MD Unavailable Unavailable Encounter Details Date Type Department Care Team Description 03/25/2024 Orders Only Medical Records [address] [place] [address] Henry Israel PA-C Social History Tobacco Use Types Packs/Day [...] Name Priority Date/Time Associated Diagnosis Comments OUTSIDE PLAIN FILM Routine 03/25/2024 documented in this encounter Results * OUTSIDE PLAIN FILM (03/25/2024) Henry Israel PA-C RADIOLOGY documented in this encounter Visit Diagnoses Not on filedocumented in this encounter Care Teams Self Propelled Hot Mix Roller Operator Relationship Specialty Start Date End Date Tasia Ash MD [address] [place] [address] PCP - General Internal Medicine 04/27/23 Jewel Manzano MD 175 [facility] [address] [place] [address] ORTHOPEDIC SURGERY 07/14/23 Jalil Paulson MD [address] [address] Ophthalmology 11/09/23 06/02/24 Brimer Specialist Rheumatology 11/09/23 Trivedi Specialist PAIN MANAGEMENT 12/18/23 Tallat Specialist Rheumatology 06/03/24 [facility] neurology Specialist Neurology 06/03/24 [facility] Optometry 06/03/24 documented as of this encounter
--- OUTSIDE RECORDS SUMMARY | 2025-08-21 17:40 | XMS_ITS | Encounter Summary ---
Author Organization [facility] Address [address] [place] [address] Care Team Providers Care Clerk Manager Name Role Phone Tasia Ash MD Primary Care Provider [phone] Jewel Manzano MD Unavailable [phone] Jalil Paulson MD Unavailable Unavailable Encounter Details Date Type Department Care Team Description 04/15/2024 Pt. Non Urgent Medic al Question Adult Medicine - [place] [address] [place] [address] Tasia Ash MD [address] [place] [address] Social History Tobacco Use Types Packs/Day Years [...] Telephone Encounter - Charley Ybarra L.P.N. - 04/15/2024 1:16 PM EDTFrom: María Phillips To: César Ash Sent: 04/15/2024 1:15 PM EDT Subject: Physical therapy I received a phone message on the about a referral to physical therapy. Can you tell me where the referral was sent and what it is for. Thank You. María documented in this encounter Plan of Treatment Not on file documented as of this encounter Visit Diagnoses Not on filedocumented in this encounter Care Teams Clerk Manager Relationship Specialty Start Date End Date Tasia Ash MD [address] [place] [address] PCP - General Internal Medicine 04/27/23 Jewel Manzano MD [address] [address] ORTHOPEDIC SURGERY 07/14/23 Jalil Paulson MD [address] [address] Ophthalmology 11/09/23 06/02/24 Brimer Specialist Rheumatology 11/09/23 Trivedi Specialist PAIN MANAGEMENT 12/18/23 Tallat Specialist Rheumatology 06/03/24 [facility] neurology Specialist Neurology 06/03/24 [facility] 06/03/24 documented as of this encounter
--- OUTSIDE RECORDS SUMMARY | 2025-08-21 17:41 | XMS_ITS | Encounter Summary ---
Author Organization [facility] Address [address] [place] [address] Care Team Providers Care Cage Supervisor Name Role Phone Tasia Ash MD Primary Care Provider [phone] Jewel Manzano MD Unavailable [phone] Jalil Paulson MD Unavailable Unavailable Encounter Details Date Type Department Care Team Description 08/10/2023 Pt. Non Urgent Medic al Question Adult Medicine - [address] [address] Henry Acevedo PA-C [address] [place] [address] Social History Tobacco Use Types Packs/Day Years [...] suspected to have Coronavirus/COVID-19? No / Unsure 08/10/2023 4:12 PM EDT documented as of this encounter Miscellaneous Notes * Telephone Encounter - Vee Soliz M.A. - 08/10/2023 11:32 AM EDTFrom: María Phillips To: Magdalena Acevedo Sent: 08/10/2023 11:02 AM EDT Subject: Results of synovial analysis from [place] I???m having difficulty sharing across medical apps. Hope these screenshots are ok documented in this encounter Plan of Treatment Not on file documented as of this encounter Visit Diagnoses Not on filedocumented in this encounter Care Teams Cage Supervisor Relationship Specialty Start Date End Date Tasia Ash MD [address] [place] [address] PCP - General Internal Medicine 04/27/23 Jewel Manzano MD [address] [address] ORTHOPEDIC SURGERY 07/14/23 Jalil Paulson MD [address] [address] Ophthalmology 11/09/23 06/02/24 Gringer Specialist Rheumatology 07/14/23 11/08/23 Brimer Specialist Rheumatology 11/09/23 Trivedi Specialist PAIN MANAGEMENT 12/18/23 Tallat Specialist Rheumatology 06/03/24 [facility] neurology Specialist Neurology 06/03/24 Amauriiat Specialist Optometry 06/03/24 documented as of this encounter
--- OUTSIDE RECORDS SUMMARY | 2025-08-21 17:41 | XMS_ITS | Encounter Summary ---
Author Organization [facility] Address [address] [place] [address] Care Team Providers Care Staff Assistant Name Role Phone Monty Allan MD Primary Care Provider [phone] [facility], Pcp Primary Care [facility] Tasia Rush MD Primary Care Provider +[phone] Jewel Manzano MD Unavailable [phone] Jalil Paulson MD Unavailable Unavailable Reason for Visit * Reason Onset Date Comments Provider Call Back 04/22/2020 Encounter Details Date Type Department Care Team Description 04/22/2020 Telephone Rheumatology - [address] [address] Von Morales, PA Provider Call Back Social History Tobacco Use Types Packs/Day Years [...] encounter Miscellaneous Notes * Telephone Encounter - Priscila Morales - 04/22/2020 10:56 AM EDT Patient is calling in stating that she received a veronica from [place] documented in this encounter Plan of Treatment Not on file documented as of this encounter Visit Diagnoses Not on filedocumented in this encounter Care Teams Staff Assistant Relationship Specialty Start Date End Date Monty Allan MD [address] [place] [address] PCP - General Internal Medicine 02/16/15 07/12/22 [facility], [facility] [address] [place], [place] PCP - General Internal Medicine 07/13/22 04/26/23 Tasia Ash MD [address] [place] [address] PCP - General Internal Medicine 04/27/23 Jewel Manzano MD [address] [address] ORTHOPEDIC SURGERY 07/14/23 Jalil Paulson MD [address] [address] Ophthalmology 11/09/23 06/02/24 Gringer Specialist Rheumatology 07/14/23 11/08/23 Brimer Specialist Rheumatology 11/09/23 Trivedi Specialist PAIN MANAGEMENT 12/18/23 Tallat Specialist Rheumatology 06/03/24 [facility] neurology Specialist Neurology 06/03/24 Erica Specialist Optometry 06/03/24 documented as of this encounter
--- OUTSIDE RECORDS SUMMARY | 2025-08-21 17:41 | XMS_ITS | Encounter Summary ---
Author Organization [facility] Address [address] [place] [address] Care Team Providers Care Hogshead Mat Assembler Name Role Phone Tasia Ash MD Primary Care Provider [phone] Jewel Manzano MD Unavailable [phone] Jalil Paulson MD Unavailable Unavailable Reason for Visit * Reason Onset Date Comments er follow up 07/14/2023 Encounter Details Date Type Department Care Team Description 07/14/2023 Telephone Adult Medicine - [place] [address] [place] [address] Tasia Ash MD [address] [place] [address] er follow up Social History Tobacco Use Types Packs/Day Years [...] suspected to have Coronavirus/COVID-19? No / Unsure 07/14/2023 9:44 AM EDT documented as of this encounter Miscellaneous Notes * Telephone Encounter - Leana Khan - 07/14/2023 9:41 AM EDT Pt states she was at [facility] on 04/20 and 04/28 and didn't see her tests/notes from those visits in her MyChart. Is there a way to get those records into her MyChart? documented in this encounter Plan of Treatment Not on file documented as of this encounter Visit Diagnoses Not on filedocumented in this encounter Care Teams Hogshead Mat Assembler Relationship Specialty Start Date End Date Tasia Ash MD [address] [place] [address] PCP - General Internal Medicine 04/27/23 Jewel Manzano MD 175 [facility] [address] [place] [address] ORTHOPEDIC SURGERY 07/14/23 Jalil Paulson MD [address] [address] Ophthalmology 11/09/23 06/02/24 Gringer Specialist Rheumatology 07/14/23 11/08/23 Brimer Specialist Rheumatology 11/09/23 Trivedi Specialist PAIN MANAGEMENT 12/18/23 Tallat Specialist Rheumatology 06/03/24 [facility] neurology Specialist Neurology 06/03/24 Erica Specialist Optometry 06/03/24 documented as of this encounter
--- OUTSIDE RECORDS SUMMARY | 2025-08-21 17:41 | XMS_ITS | Encounter Summary ---
Author Organization [facility] Address [address] [place] [address] Care Team Providers Care Bowling Ball Molder Name Role Phone Monty Allan MD Primary Care Provider [phone] [facility], Pcp Primary Care Provider UnavailTasia Barnhart MD Primary Care Provider +[phone] Jewel Manzano MD Unavailable [phone] Jalil Paulson MD Unavailable Unavailable Reason for Visit * Reason Onset Date Comments REFERRAL 06/28/2016 Encounter Details Date Type Department Care Team Description 06/28/2016 Telephone Podiatry - [address] [address] Myah Escobar DPM REFERRAL Social History Tobacco Use Types Packs/Day Years Used Date Smoking Tobacco: Every Day Cigarettes 0.5 Alcohol Use Standard Drinks/Week Comments Yes 0 (1 standard drink = 0.6 oz pur e alcohol) Social Sex Assigned at Date Recorded Female 07/02/2024 12:20 PM EDT Job Start Date Occupation Industry Not on file Not on file Not on file documented as of this encounter Miscellaneous Notes * Telephone Encounter - Rebeka Burciaga - 06/28/2016 9:52 AM EDT Pateint is referred to: Podiatry. Reason for referral: Problem visit for pain in foot. ? Left ganglion Priority: Next Routine FYI We left 2 messages and sent an unable to reach letter. No response from patient. We took the referral off the report. Thank You documented in this encounter Plan of Treatment Not on file documented as of this encounter Visit Diagnoses Not on filedocumented in this encounter Care Teams Bowling Ball Molder Relationship Specialty Start Date End Date Monty Allan MD [address] [place] [address] PCP - General Internal Medicine 02/16/15 07/12/22 [facility], [facility] [address] [place], [place] PCP - General Internal Medicine 07/13/22 04/26/23 Tasia Ash MD [address] [place] [address] PCP - General Internal Medicine 04/27/23 Jewel Manzano MD [address] [place] [address] ORTHOPEDIC SURGERY 07/14/23 Jalil Paulson MD [address] [address] Ophthalmology 11/09/23 06/02/24 Gringer Specialist Rheumatology 07/14/23 11/08/23 Brimer Specialist Rheumatology 11/09/23 Trivedi Specialist PAIN MANAGEMENT 12/18/23 Tallat Specialist Rheumatology 06/03/24 [facility] neurology Specialist Neurology 06/03/24 Ama[facility] Specialist Optometry 06/03/24 documented as of this encounter
--- OUTSIDE RECORDS SUMMARY | 2025-08-21 17:41 | XMS_ITS | Encounter Summary ---
Author Organization [facility] Address [address] [place] [address] Care Team Providers Care Manager Parking Name Role Phone Tasia Ash MD Primary Care Provider [phone] Jewel Manzano MD Unavailable [phone] Jalil Paulson MD Unavailable Unavailable Encounter Details Date Type Department Care Team Description 07/18/2023 Transfer Records Medical Records [address] [place] [address] Social History Tobacco Use Types Packs/Day Years [...] Recorded In the last 10 days, have billy jacome been in contact with someone who was confirmed or suspected to have Coronavirus/COVID-19? No / Unsure 07/14/2023 9:44 AM EDT documented as of this encounter Plan of Treatment Not on file documented as of this encounter Visit Diagnoses Not on filedocumented in this encounter Care Teams Manager Parking Relationship Specialty Start Date End Date Tasia Ash MD [address] [place] [address] PCP - General Internal Medicine 04/27/23 Jewel Manzano MD [address] [address] ORTHOPEDIC SURGERY 07/14/23 Jalil Paulson MD [address] [address] Ophthalmology 11/09/23 06/02/24 [place] Specialist Rheumatology 07/14/23 11/08/23 Brimer Specialist Rheumatology 11/09/23 Trivedi Specialist PAIN MANAGEMENT 12/18/23 Tallat Specialist Rheumatology 06/03/24 [facility] neurology Specialist Neurology 06/03/24 Amauriiat Specialist Optometry 06/03/24 documented as of this encounter
--- OUTSIDE RECORDS SUMMARY | 2025-08-21 17:41 | XMS_ITS | Encounter Summary ---
Author Organization [facility] Address [address] [place] [address] Care Team Providers Care Ice Guard Tester Name Role Phone Tasia Ash MD Primary Care Provider [phone] Jewel Manzano MD Unavailable [phone] Reason for Referral * Non ZACHERY (Priority) - Authorized/Booked Specialty Diagnoses / Procedures Referred By Contact Referred To Contact Otolaryngology / EarNoseThroat Diagnoses Jaw pain Procedures REFERRAL TO EAR, NOSE & THROAT Miguel Avila PA [address] [place] [address] Js Mahoney [address] [place] [address] [address] [place] [address] Referral ID Status Reason Start Date Expiration Date V isits Requested Visits Authorized [id number] Authorized/B ooked 07/09/2024 07/09/2025 1 1 Encounter Details Date Type Department Care Team Description 07/09/2024 Pt. Non Urgent Medical Question Adult Medicine - [place] [address] [place] [address] Tasia Ash MD [address] [place] [address] Jaw pain (Primary Dx) Social History Tobacco Use Types [...] Telephone Encounter - Bessy العراقي L.P.N. - 07/09/2024 10:01 AM EDT From: María Phillips To: César Ash Sent: 07/09/2024 9:06 AM EDT Subject: Gland, jaw pain, face twitching The last time I was seen in office by Henry Acevedo, I informed him of my jaw and gland pain. It???s gotten considerably worse. I need to be seen D[facility], and not at the [facility] urgent care. I won???t go back there documented in this encounter Plan of Treatment Not on file documented as of this encounter Visit Diagnoses Diagnosis Jaw pain- Primary documented in this encounter Care Teams Ice Guard Tester Relationship Specialty Start Date End Date Tasia Ash MD [address] [place] [address] PCP - General Internal Medicine 04/27/23 Jewel Manzano MD [address] [address] ORTHOPEDIC SURGERY 07/14/23 Brimer Specialist Rheumatology 11/09/23 Trivedi Specialist PAIN MANAGEMENT 12/18/23 Tallat Specialist Rheumatology 06/03/24 [facility] neurology Specialist Neurology 06/03/24 Amaurijane [facility] Specialist Optometry 06/03/24 documented as of this encounter
--- OUTSIDE RECORDS SUMMARY | 2025-08-21 17:41 | XMS_ITS | Encounter Summary ---
Author Organization [facility] Address [address] [place] [address] Care Team Providers Care Crutcher Helper Name Role Phone Tasia Ash MD Primary Care Provider [phone] Jewel Manzano MD Unavailable [phone] Encounter Details Date Type Department Care Team Description 06/26/2024 Pt. Non Urgent Medical Question Bariatric Surgery - [place] 175 [facility] [address] [place] [phone] Jacy Mcdowell MD 175 [facility] [address] [place] [address] Social History Tobacco Use Types Packs/Day [...] on filedocumented in this encounter Care Teams Crutcher Helper Relationship Specialty Start Date End Date Tasia Ash MD [address] [place] [address] PCP - General Internal Medicine 04/27/23 Jewel Manzano MD [address] [address] ORTHOPEDIC SURGERY 07/14/23 Brimer Specialist Rheumatology 11/09/23 Trivedi Specialist PAIN MANAGEMENT 12/18/23 Tallat Specialist Rheumatology 06/03/24 [facility] neurology Specialist Neurology 06/03/24 Erica Specialist Optometry 06/03/24 documented as of this encounter
--- OUTSIDE RECORDS SUMMARY | 2025-08-21 17:41 | XMS_ITS | Encounter Summary ---
Author Organization [facility] Address [address] [place] [address] Care Team Providers Care Prop Attendant Name Role Phone Tasia Ash MD Primary Care Provider [phone] Jewel Manzano MD Unavailable [phone] Jalil Paulson MD Unavailable Unavailable Encounter Details Date Type Department Care Team Description 09/04/2023 Pt. Non Urgent Medic al Question Adult Medicine - [place] [address] [place] [address] Tasia Ash MD [address] [place] [address] Social History Tobacco Use Types Packs/Day Years [...] suspected to have Coronavirus/COVID-19? No / Unsure 09/04/2023 11:03 AM EDT documented as of this encounter Miscellaneous Notes * Telephone Encounter - Charley Ybarra L.P.N. - 09/04/2023 4:11 PM EDTFrom: María Phillips To: César Ash Sent: 09/04/2023 4:05 PM EDT Subject: No return call from Gastro I have called several times today, for Gastro to call me back. Not sure what the problem is. Freeman performed the colonoscopy and was informed of the situation but no call back. Really not sure what to do. Please advise. Thank You. María documented in this encounter Plan of Treatment Not on file documented as of this encounter Visit Diagnoses Not on filedocumented in this encounter Care Teams Prop Attendant Relationship Specialty Start Date End Date Tasia Ash MD [address] [place] [address] PCP - General Internal Medicine 04/27/23 Jewel Manzano MD [address] [address] ORTHOPEDIC SURGERY 07/14/23 Jalil Paulson MD [address] [address] Ophthalmology 11/09/23 06/02/24 Gringer Specialist Rheumatology 07/14/23 11/08/23 Lucioimer Specialist Rheumatology 11/09/23 Trivedi Specialist PAIN MANAGEMENT 12/18/23 Tallat Specialist Rheumatology 06/03/24 [facility] neurology Specialist Neurology 06/03/24 [facility] 06/03/24 documented as of this encounter
--- OUTSIDE RECORDS SUMMARY | 2025-08-21 17:41 | XMS_ITS | Encounter Summary ---
Author Organization [facility] Address [address] [place] [address] Care Team Providers Care Dish Washer Name Role Phone Monty Allan MD Primary Care Provider [phone] [facility], Pcp Primary Care Provider Tasia Stallings MD Primary Care Provider [phone] Jewel Manzano MD Unavailable [phone] Jalil Paulson MD Unavailable Unavailable Encounter Details Date Type Department Care Team Description 06/27/2022 Baker Apprentice Report Medical Records [address] [place] [address] June Brito APRN Social History Tobacco Use Types Packs/Day Years [...] on filedocumented in this encounter Care Teams Dish Washer Relationship Specialty Start Date End Date Monty Allan MD [address] [place] [address] PCP - General Internal Medicine 02/16/15 07/12/22 [facility], Pcp [address] [place], [place] PCP - General Internal Medicine 07/13/22 04/26/23 Tasia Ash MD [address] [place] [address] PCP - General Internal Medicine 04/27/23 Jewel Manzano MD 175 [facility] [address] [place] [address] ORTHOPEDIC SURGERY 07/14/23 Jalil Paulson MD [address] [address] Ophthalmology 11/09/23 06/02/24 Gringer Specialist Rheumatology 07/14/23 11/08/23 Brimer Specialist Rheumatology 11/09/23 Trivedi Specialist PAIN MANAGEMENT 12/18/23 Tallat Specialist Rheumatology 06/03/24 [facility] neurology Specialist Neurology 06/03/24 Erica Specialist Optometry 06/03/24 documented as of this encounter
--- OUTSIDE RECORDS SUMMARY | 2025-08-21 17:41 | XMS_ITS | Encounter Summary ---
Author Organization [facility] Address [address] [place] [address] Care Team Providers Care Supervisor Evaporator Name Role Phone Monty Allan MD Primary Care Provider [phone] [facility], Pcp Primary Care Provider UnavailTasia Barnhart MD Primary Care Provider [phone] Jewel Manzano MD Unavailable [phone] Jalil Paulson MD Unavailable Unavailable Encounter Details Date Type Department Care Team Description 04/10/2020 Pt. Non Urgent Medic al Question Adult Medicine [address] [address] Monty Allan MD [address] [place] [address] Social History Tobacco Use Types Packs/Day Years [...] as of this encounter Progress Notes * Rosie Metzger M.A. - 04/10/2020 1:07 PM EDTFrom: María Phillips To: Monty Allan MD Sent: 04/10/2020 1:04 PM EDT Subject: MRI Could you please have my MRI sent to [facility] for Dr Rey. I have an appointment on the and would like them to view the MRI before my appointment. Thanks. María documented in this encounter Plan of Treatment Not on file documented as of this encounter Visit Diagnoses Not on filedocumented in this encounter Care Teams Supervisor Evaporator Relationship Specialty Start Date End Date Monty Allan MD [address] [place] [address] PCP - General Internal Medicine 02/16/15 07/12/22 [facility], [address] PCP - General Internal Medicine 07/13/22 04/26/23 Tasia Ash MD [address] [place] [address] PCP - General Internal Medicine 04/27/23 Jewel Manzano MD [address] [place] [address] ORTHOPEDIC SURGERY 07/14/23 Jalil Paulson MD [address] [address] Ophthalmology 11/09/23 06/02/24 Gringer Specialist Rheumatology 07/14/23 11/08/23 Brimer Specialist Rheumatology 11/09/23 Trivedi Specialist PAIN MANAGEMENT 12/18/23 Tallat Specialist Rheumatology 06/03/24 [facility] neurology Specialist Neurology 06/03/24 [place] Specialist Optometry 06/03/24 documented as of this encounter
--- OUTSIDE RECORDS SUMMARY | 2025-08-21 17:41 | XMS_ITS | Encounter Summary ---
Author Organization [facility] Address [address] [place] [address] Care Team Providers Care Research Food Technologist Name Role Phone Monty Allan MD Primary Care Provider [phone] [facility], Pcp Primary Care Provider UnavailTasia Barnhart MD Primary Care Provider Jewel Manzano MD Unavailable [phone] Jalil Paulson MD Unavailable Unavailable Encounter Details Date Type Department Care Team Description 04/24/2020 Orders Only Adult Medicine - [place] [address] [place] [address] Monty Allan, [address] [place] [address] At risk for infection (Primary Dx) Social History Tobacco Use Types [...] documented as of this encounter Results * CHLAMYDIA DNA PROBE, URINE (04/24/2020 1:54 PM EDT) CHLAMYDIA-URIN E NEGATIVE NEGATIVE 04/25/2020 12:04 PM EDT [facility] 04/24/2020 1:54 PM EDT 04/24/2020 1:57 PM EDT Monty Allan MD LAB Performing Organization Address City/[facility]/ZIP Co de Phone Number [facility] * GONORRHEA DNA PROBE, URINE (04/24/2020 1:54 PM EDT) GC-URINE NEGATIVE NEGATIVE 04/25/2020 12:04 PM EDT [facility] 04/24/2020 1:54 PM EDT 04/24/2020 1:57 PM EDT Monty Allan MD LAB Performing Organization Address [facility] Co de Phone Number [facility] * (ABNORMAL) HERPES 1&2 AB IGG (04/24/2020 1:52 PM EDT) HERPES 1 ANTIBODY IGG POSITIVE(A) NEGATIVE 04/30/2020 12:03 PM EDT [facility] HSV 1 IGG QUANT 6.61(H) <0.90 INDEX 04/30/2020 12:03 PM EDT [facility] HERPES 2 ANTIBODY IGG NEGATIVE NEGATIVE 04/30/2020 12:03 PM EDT [facility] HSV 2 IGG QUANT -0.04 <0.90 INDEX 04/30/2020 12:03 PM EDT [facility] 04/24/2020 1:52 PM EDT 04/24/2020 1:57 PM EDT Monty Allan MD LAB [facility] * HSV IGM AB (04/24/2020 1:52 PM EDT) HERPES 1 AND 2 ANTIBODIES, IGM NEGATIVE NEGATIVE 04/30/2020 12:03 PM EDT [facility] HSV 1 2 IGM QUANT 0.67 <0.90 INDEX 04/30/2020 12:03 PM EDT [facility] 04/24/2020 1:52 PM EDT 04/24/2020 1:57 PM EDT Monty Allan MD LAB Performing Organization Address [facility] Co de Phone Number [facility] * HEPATITIS PANEL (04/24/2020 1:52 PM EDT) Hepatitis B surface antibody NEGATIVE NEGATIVE 04/24/2020 8:38 PM EDT [facility] Hepatitis B surface antigen NEGATIVE NEGATIVE 04/24/2020 8:50 PM EDT [facility] Comment: Over the counter supplements containing high doses of biotin may interfere with this assay. If interference is suspected, patients shoud be retested after refraining from biotin supplements for 72 hours. Hepatitis C Virus Diagnostic NEGATIVE NEGATIVE 04/24/2020 9:18 PM EDT [facility] HEPATITIS B CORE ANTIBODY NEGATIVE NEGATIVE 04/24/2020 9:25 PM EDT [facility] HEPATITIS A ANTIBODY TOTAL NEGATIVE NEGATIVE 04/24/2020 9:25 PM EDT [facility] Comment: Over the counter supplements containing high doses of biotin may interfere with this assay. If interference is suspected, patients shoud be retested after refraining from biotin supplements for 72 hours. 04/24/2020 1:52 PM EDT 04/24/2020 1:57 PM EDT Monty Allan MD LAB Performing Organization Address [facility] de Phone Number [facility] * TREPONEMA ANTIBODY (04/24/2020 1:52 PM EDT) Pathologist [facility] TREPONEMAL AB NEGATIVE NEGATIVE 04/24/2020 8:50 PM EDT [facility] 04/24/2020 1:52 PM EDT 04/24/2020 1:57 PM EDT Monty Allan MD LAB Performing Organization Address [facility] Co de Phone Number [facility] * ANTIBODY HIV-1&HIV-2 SINGLE RESULT (04/24/2020 1:52 PM EDT) Pathologist [facility] HIV 1&2 ANTIBODY SCREEN NEGATIVE NEGATIVE 04/24/2020 9:18 PM EDT [facility] Comment: This assay is a 4th generation assay allowing for earlier detection of HIV infection by detecting the presence of the HIV-1 p24 antigen as well as the traditional antibodies to HIV type 1 (including group O) and type 2. Use of a 4th generation assay is the current CDC recommendation for HIV screening. 04/24/2020 1:52 PM EDT 04/24/2020 1:57 PM EDT Monty Allan MD LAB [facility] documented in this encounter Visit Diagnoses Diagnosis At risk for infection- Primary Other specified conditions influencing health status documented in this encounter Care Teams Research Food Technologist Relationship Specialty Start Date End Date Monty Allan MD [address] [place] [address] PCP - General Internal Medicine 02/16/15 07/12/22 [facility], Pcp [address] [place] [address] PCP - General Internal Medicine 07/13/22 04/26/23 Tasia Ash MD [address] [place] [address] PCP - General Internal Medicine 04/27/23 Jewel Manzano MD [address] [place] [address] ORTHOPEDIC SURGERY 07/14/23 Jalil Paulson MD [address] [address] Ophthalmology 11/09/23 06/02/24 Gringer Specialist Rheumatology 07/14/23 11/08/23 Brimer Specialist Rheumatology 11/09/23 Trivedi Specialist PAIN MANAGEMENT 12/18/23 Tallat Specialist Rheumatology 06/03/24 [facility] neurology Specialist Neurology 06/03/24 Amauriiat Specialist Optometry 06/03/24 documented as of this encounter
--- OUTSIDE RECORDS SUMMARY | 2025-08-21 17:41 | XMS_ITS | Encounter Summary ---
Author Organization [facility] Address [address] [place] [address] Care Team Providers Care Supervisor Contingents Name Role Phone Monty Allan MD Primary Care Provider [phone] [facility], Pcp Primary Care Provider Tasia Stallings MD Primary Care Provider [phone] Jewel Manzano MD Unavailable [phone] Jalil Paulson MD Unavailable Unavailable Encounter Details Date Type Department Care Team Description 07/23/2020 Processor Grain Report Medical Records [address] [place] [address] Chintan Condon MD Social History Tobacco Use [...] filedocumented in this encounter Care Teams Supervisor Contingents Relationship Specialty Start Date End Date Monty Allan MD [address] [place] [address] PCP - General Internal Medicine 02/16/15 07/12/22 [facility], Pcp [address] [place], [place] PCP - General Internal Medicine 07/13/22 04/26/23 Tasia Ash MD [address] [place] [address] PCP - General Internal Medicine 04/27/23 Jewel Manzano MD [address] [address] ORTHOPEDIC SURGERY 07/14/23 Jalil Paulson MD [address] [address] Ophthalmology 11/09/23 06/02/24 Gringer Specialist Rheumatology 07/14/23 11/08/23 Brimer Specialist Rheumatology 11/09/23 Trivedi Specialist PAIN MANAGEMENT 12/18/23 Tallat Specialist Rheumatology 06/03/24 [facility] neurology Specialist Neurology 06/03/24 Erica Specialist Optometry 06/03/24 documented as of this encounter
--- OUTSIDE RECORDS SUMMARY | 2025-08-21 17:41 | XMS_ITS | Encounter Summary ---
Author Organization [facility] Address [address] [place] [address] Care Team Providers Care Offshore Diver Name Role Phone Community, Pcp Primary Care Provider Unavailabl Tasia Rush MD Primary Care Provider [phone] Jewel Manzano MD Unavailable [phone] Jalil Paulson MD Unavailable Unavailable Encounter Details Date Type Department Care Team Description 07/28/2022 Setter Off Report Medical Records [address] [place] [address] Axel Guerra Social History Tobacco Use Types Packs/Day Years [...] on filedocumented in this encounter Care Teams Offshore Diver Relationship Specialty Start Date End Date Community, Pcp PCP - General Internal Medicine 07/13/22 04/26/23 Tasia Ash MD [address] [place] [address] PCP - General Internal Medicine 04/27/23 Jewel Manzano MD 175 [facility] [address] [place] [address] ORTHOPEDIC SURGERY 07/14/23 Jalil Paulson MD [address] [place] [address] [place] [address] Ophthalmology 11/09/23 06/02/24 Byroninger Specialist Rheumatology 07/14/23 11/08/23 Brimer Specialist Rheumatology 11/09/23 Farooq Specialist PAIN MANAGEMENT 12/18/23 Juanat Specialist Rheumatology 06/03/24 [facility] neurology Specialist Neurology 06/03/24 Erica Specialist Optometry 06/03/24 documented as of this encounter
--- OUTSIDE RECORDS SUMMARY | 2025-08-21 17:41 | XMS_ITS | Encounter Summary ---
Author Organization [facility] Address [address] [place] [address] Care Team Providers Care Clinical Data Coordinator Name Role Phone Monty Allan MD Primary Care Provider [phone] [facility], Pcp Primary Care Provider Tasia Stallings MD Primary Care Provider [phone] Jewel Manzano MD Unavailable [phone] Jalil Paulson MD Unavailable Unavailable Reason for Referral * EXTERNAL (Routine) - Authorized/Booked Specialty Diagnoses / Procedures Referred By Corine strange Referred To Contact Physical Therapy Procedures REFERRAL TO PHYSICAL THERAPY Von Morales PA [address] [place] [address] [facility] Referral ID Status Reason Start Date Expiration Date V isits Requested Visits Authorized [id number] Authorized/B ooked 05/01/2020 05/01/2021 1 1 Reason for Visit * Reason Onset Date Comments Vendette Feedback 05/01/2020 Nando PT Encounter Details Date Type Department Care Team Description 05/01/2020 Telephone [facility] - [address] [address] Von Morales PA Cro Feedback ([facility] LARSON) Social History Tobacco Use Types Packs/Day Years [...] encounter Miscellaneous Notes * Telephone Encounter - Von Morales PA-C - 05/01/2020 5:10 PM EDT Referral placed * Telephone Encounter - Shirley Segovia - 05/01/2020 2:03 PM EDT Please review this patients new referral request. The referral has been pended. Please complete thefollowing: If approved> sign order If denied>please give instructions and route to your practice nursing pool. Practice nurse should inform referrals and the patient if denied. ([facility] looking for updated order) documented in this encounter Plan of Treatment Not on file documented as of this encounter Visit Diagnoses Not on filedocumented in this encounter Care Teams Clinical Data Coordinator Relationship Specialty Start Date End Date Monty Allan MD [address] [place] [address] PCP - General Internal Medicine 02/16/15 07/12/22 [facility] [address] [place], [place] PCP - General Internal Medicine 07/13/22 04/26/23 Tasia Ash MD [address] [place], [place] PCP - General Internal Medicine 04/27/23 Jewel Manzano MD [address] [address] ORTHOPEDIC SURGERY 07/14/23 Jalil Paulson MD [address] [address] Ophthalmology 11/09/23 06/02/24 Gringer Specialist Rheumatology 07/14/23 11/08/23 Brimer Specialist Rheumatology 11/09/23 Trivedi Specialist PAIN MANAGEMENT 12/18/23 Tallat Specialist Rheumatology 06/03/24 [facility] neurology Specialist Neurology 06/03/24 Erica Specialist Optometry 06/03/24 documented as of this encounter
--- OUTSIDE RECORDS SUMMARY | 2025-08-21 17:41 | XMS_ITS | Encounter Summary ---
Author Organization [facility] Address [address] [place] [address] Care Team Providers Care Film Processor Name Role Phone Tasia Ash MD Primary Care Provider [phone] Jewel Manzano MD Unavailable [phone] Jalil Paulson MD Unavailable Unavailable Encounter Details Date Type Department Care Team Description 09/08/2023 Pt. Non Urgent Medic al Question Adult Medicine - [place] [address] [place] [address] Tasia Ash MD [address] [place] [address] Social History Tobacco Use Types Packs/Day Years [...] Telephone Encounter - Bessy العراقي L.P.N. - 09/08/2023 11:05 AM EDT From: María Phillips To: César Ash Sent: 09/08/2023 11:04 AM EDT Subject: Rectal pain I was wondering if I could be seen. I???m having a lot of pain and pressure in my rectum. Have not had a bowel movement today documented in this encounter Plan of Treatment Not on file documented as of this encounter Visit Diagnoses Not on filedocumented in this encounter Care Teams Film Processor Relationship Specialty Start Date End Date Tasia Ash MD [address] [place] [address] PCP - General Internal Medicine 04/27/23 Jewel Manzano MD [address] [address] ORTHOPEDIC SURGERY 07/14/23 Jalil Paulson MD [address] [address] Ophthalmology 11/09/23 06/02/24 Gringer Specialist Rheumatology 07/14/23 11/08/23 Brimer Specialist Rheumatology 11/09/23 Trivedi Specialist PAIN MANAGEMENT 12/18/23 Tallat Specialist Rheumatology 06/03/24 [facility] neurology Specialist Neurology 06/03/24 Erica Specialist Optometry 06/03/24 documented as of this encounter
--- OUTSIDE RECORDS SUMMARY | 2025-08-21 17:41 | XMS_ITS | Encounter Summary ---
Author Organization [facility] Address [address] [place] [address] Care Team Providers Care Program Director/Air Personality Name Role Phone Monty Allan MD Primary Care Provider [phone] [facility], Pcp Primary Care Provider [facility] Tasia Ash MD Primary Care Provider + [phone] Jewel Manzano MD Unavailable [phone] Jalil Paulson MD Unavailable Unavailable Reason for Visit * Reason Comments E-prescribe Rx Request Encounter Details Date Type Department Care Team Description 04/07/2020 Refill Medicine/Pediatrics - [address] [id number] Sherrell Morel NP E-prescribe Rx Request Social History Tobacco Use [...] encounter Miscellaneous Notes * Telephone Encounter - Sherrell Morel NP - 04/08/2020 5:24 AM EDT Renewing only once. Not termite renewal inspector rx * Telephone Encounter - Savana Self M.A. - 04/07/2020 3:21 PM EDT Pharmacy refill request, please review if refill is appropriate. * Telephone Encounter - Shay Caldera - 04/07/2020 1:33 PM EDT Patient would like script to be: E-PRESCRIBED/FAXED TO PHARMACY WHEN WAS THE PATIENT'S LAST APPOINTMENT IN ADULT MEDICINE? WHEN WAS THE LAST TIME THE PATIENT SAW THEIR PCP? 03/13/2020 Does patient have an upcoming appointment? (THE MEDICATION REQUESTED IS ON THE MED [...] N/A Patients current insurance carrier is: Payor: [employer] / Plan: PPO $20 EL BANNERO [id number] / Product Type: POS [id number] documented in this encounter Plan of Treatment Not on file documented as of this encounter Visit Diagnoses Not on filedocumented in this encounter Care Teams Program Director/Air Personality Relationship Specialty Start Date End Date Monty Allan MD [address] [place] [address] PCP - General Internal Medicine 02/16/15 07/12/22 [facility], [facility] [address] [place] [address] PCP - General Internal Medicine 07/13/22 04/26/23 Tasia Ash MD [address] [place] [address] PCP - General Internal Medicine 04/27/23 Jewel Manzano MD [address] [address] ORTHOPEDIC SURGERY 07/14/23 Jalil Paulson MD [address] [address] Ophthalmology 11/09/23 06/02/24 Gringer Specialist Rheumatology 07/14/23 11/08/23 Brimer Specialist Rheumatology 11/09/23 Trivedi Specialist PAIN MANAGEMENT 12/18/23 Tallat Specialist Rheumatology 06/03/24 [facility] neurology Specialist Neurology 06/03/24 Erica Specialist Optometry 06/03/24 documented as of this encounter
--- OUTSIDE RECORDS SUMMARY | 2025-08-21 17:41 | XMS_ITS | Encounter Summary ---
Author Organization [facility] Address [address] [place] [address] Care Team Providers Care Resource Engineer Name Role Phone Tasia Ash MD Primary Care Provider + [phone] Jewel Manzano MD Unavailable [phone] Jalil Paulson MD Unavailable Unavailable Encounter Details Date Type Department Care Team Description 07/14/2023 Release of Information Medical Records [address] [place] [id number] Abstract, Provider Social History Tobacco Use Types [...] In the last 10 days, have billy u been in contact with someone who was confirmed or suspected to have Coronavirus/COVID-19? No / Unsure 07/14/2023 9:44 AM EDT documented as of this encounter Nursing Notes * Tori London - 07/14/2023 5:43 PM EDT FAXED REQUEST TO [facility] TO OBTAIN RECORDS. 07/14/23 ID# [id number] documented in this encounter Plan of Treatment Not on file documented as of this encounter Visit Diagnoses Not on filedocumented in this encounter Care Teams Resource Engineer Relationship Specialty Start Date End Date Tasia Ash MD [address] [place] [address] PCP - General Internal Medicine 04/27/23 Jewel Manzano MD 175 [facility] [address] [place] [address] ORTHOPEDIC SURGERY 07/14/23 Jalil Paulson MD 175 [facility] [address] [place] [address] Ophthalmology 11/09/23 06/02/24 Gringer Specialist Rheumatology 07/14/23 11/08/23 Brimer Specialist Rheumatology 11/09/23 Trivedi Specialist PAIN MANAGEMENT 12/18/23 Tallat Specialist Rheumatology 06/03/24 [facility] neurology Specialist Neurology 06/03/24 Pulliat Specialist Optometry 06/03/24 documented as of this encounter
--- OUTSIDE RECORDS SUMMARY | 2025-08-21 17:41 | XMS_ITS | Encounter Summary ---
Author Organization [facility] Address [address] [place] [address] Care Team Providers Care Inspector Missile Name Role Phone Monty Allan MD Primary Care Provider [phone] [facility], Pcp Primary Care Provider Tasia Stallings MD Primary Care Provider [phone] Jewel Manzano MD Unavailable [phone] Jalil Paulson MD Unavailable Unavailable Encounter Details Date Type Department Care Team Description 04/15/2020 Release of Information Medical Records [address] [place] [address] Abstract, Provider Social History Tobacco Use Types [...] on filedocumented in this encounter Care Teams Inspector Missile Relationship Specialty Start Date End Date Monty Allan MD [address] [place] [address] PCP - General Internal Medicine 02/16/15 07/12/22 [facility], Pcp [address] PCP - General Internal Medicine 07/13/22 04/26/23 Tasia Ash MD [address] [place] [address] PCP - General Internal Medicine 04/27/23 Jewel Manzano MD 175 [facility] [address] [place] [address] ORTHOPEDIC SURGERY 07/14/23 Jalil Paulson MD [address] [address] Ophthalmology 11/09/23 06/02/24 Gringer Specialist Rheumatology 07/14/23 11/08/23 Brimer Specialist Rheumatology 11/09/23 Trivedi Specialist PAIN MANAGEMENT 12/18/23 Tallat Specialist Rheumatology 06/03/24 [facility] neurology Specialist Neurology 06/03/24 Amauriiat Specialist Optometry 06/03/24 documented as of this encounter
--- OUTSIDE RECORDS SUMMARY | 2025-08-21 17:41 | XMS_ITS | Encounter Summary ---
Author Organization [facility] Address [address] [place] [address] Care Team Providers Care Ex Chef Name Role Phone Tasia Ash MD Primary Care Provider [phone] Jewel Manzano MD Unavailable [phone] Encounter Details Date Type Department Care Team Description 06/19/2024 Orders Only Adult Medicine - [place] [address] [place] [address] Tasia Ash MD [address] [place] [address] Social History Tobacco Use Types Packs/Day Years [...] on filedocumented in this encounter Care Teams Ex Chef Relationship Specialty Start Date End Date Tasia Ash MD [address] [place] [address] PCP - General Internal Medicine 04/27/23 Jewel Manzano MD [address] [address] ORTHOPEDIC SURGERY 07/14/23 Brimer Specialist Rheumatology 11/09/23 Farooq Specialist PAIN MANAGEMENT 12/18/23 Tallat Specialist Rheumatology 06/03/24 [facility] neurology Specialist Neurology 06/03/24 Erica Specialist Optometry 06/03/24 documented as of this encounter
--- OUTSIDE RECORDS SUMMARY | 2025-08-21 17:41 | XMS_ITS | Encounter Summary ---
Author Organization [facility] Address [address] [place] [address] Care Team Providers Care College Instructor Name Role Phone Monty Allan MD Primary Care Provider [phone] [facility], Pcp Primary Care Provider UnavailTasia Barnhart MD Primary Care Provider [phone] Jewel Manzano MD Unavailable [phone] Jalil Paulson MD Unavailable Unavailable Encounter Details Date Type Department Care Team Description 07/17/2020 Pt. Non Urgent Medical Question Rheumatology - [address] [address] Von Morales PA Social History Tobacco Use Types Packs/Day [...] as of this encounter Progress Notes * Bessy العراقي L.P.N. - 07/17/2020 12:22 PM EDTFrom: María Phillips To: Von Morales PA-C Sent: 07/17/2020 12:06 PM EDT Subject: MRI Hello Daniel. Have you had a chance to look at my MRI results. I am in severe pain. Both of my wrists are terribly painful,and now both of my shoulders hurt and my whole right leg. Whatever this is it is progressing and I need some help and answers. Thank You. María documented in this encounter Plan of Treatment Not on file documented as of this encounter Visit Diagnoses Not on filedocumented in this encounter Care Teams College Instructor Relationship Specialty Start Date End Date Monty Allan MD [address] [place] [address] PCP - General Internal Medicine 02/16/15 07/12/22 [facility], [address] PCP - General Internal Medicine 07/13/22 04/26/23 Tasia Ash MD [address] [place] [address] PCP - General Internal Medicine 04/27/23 Jewel Manzano MD [address] [place] [address] ORTHOPEDIC SURGERY 07/14/23 Jalil Paulson MD [address] [address] Ophthalmology 11/09/23 06/02/24 Gringer Specialist Rheumatology 07/14/23 11/08/23 Brimer Specialist Rheumatology 11/09/23 Trivedi Specialist PAIN MANAGEMENT 12/18/23 Tallat Specialist Rheumatology 06/03/24 [facility] neurology Specialist Neurology 06/03/24 [facility] 06/03/24 documented as of this encounter
--- OUTSIDE RECORDS SUMMARY | 2025-08-21 17:41 | XMS_ITS | Encounter Summary ---
Author Organization [facility] Address [address] [place] [address] Care Team Providers Care Mixing Picker Tender Name Role Phone Monty Allan MD Primary Care Provider [phone] [facility], Pcp Primary Care Provider Tasia Stallings MD Primary Care Provider [phone] Jewel Manzano MD Unavailable [phone] Jalil Paulson MD Unavailable Unavailable Encounter Details Date Type Department Care Team Description 04/08/2020 [facility] Medical Records [address] [place] [address] Abstract, Provider Social History Tobacco Use Types [...] on filedocumented in this encounter Care Teams Mixing Picker Tender Relationship Specialty Start Date End Date Monty Allan MD [address] [place] [address] PCP - General Internal Medicine 02/16/15 07/12/22 [facility], Pcp [address] [place], [place] PCP - General Internal Medicine 07/13/22 04/26/23 Tasia Ash MD [address] [place] [address] PCP - General Internal Medicine 04/27/23 Jewel Manzano MD 175 [facility] [address] [place] [address] ORTHOPEDIC SURGERY 07/14/23 Jalil Paulson MD [address] [address] Ophthalmology 11/09/23 06/02/24 Gringer Specialist Rheumatology 07/14/23 11/08/23 Brimer Specialist Rheumatology 11/09/23 Trivedi Specialist PAIN MANAGEMENT 12/18/23 Tallat Specialist Rheumatology 06/03/24 [facility] neurology Specialist Neurology 06/03/24 Amauriiat Specialist Optometry 06/03/24 documented as of this encounter
--- OUTSIDE RECORDS SUMMARY | 2025-08-21 17:41 | XMS_ITS | Encounter Summary ---
Author Organization [facility] Address [address] [place] [address] Care Team Providers Care Contracts Director Name Role Phone Tasia Ash MD Primary Care Provider [phone] Jewel Manzano MD Unavailable [phone] Jalil Paulson MD Unavailable Unavailable Encounter Details Date Type Department Care Team Description 07/21/2023 Pt. Non Urgent Medic al Question Adult Medicine - [place] [address] [place] [address] Tasia Ash MD [address] [place] [address] Social History Tobacco Use Types Packs/Day Years [...] Telephone Encounter - Bessy العراقي L.P.NClive - 07/21/2023 8:38 AM EDT From: María Phillips To: César Ash Sent: 07/21/2023 8:32 AM EDT Subject: Rheumatoid arthritis I noticed in your notes dated 07/13, that I tested negative for RA. That is not the case. I have been positive for almost 4 years documented in this encounter Plan of Treatment Not on file documented as of this encounter Visit Diagnoses Not on filedocumented in this encounter Care Teams Contracts Director Relationship Specialty Start Date End Date Tasia Ash MD [address] [place] [address] PCP - General Internal Medicine 04/27/23 Jewel Manzano MD [address] [address] ORTHOPEDIC SURGERY 07/14/23 Jalil Paulson MD [address] [address] Ophthalmology 11/09/23 06/02/24 Gringer Specialist Rheumatology 07/14/23 11/08/23 Brimer Specialist Rheumatology 11/09/23 Trivedi Specialist PAIN MANAGEMENT 12/18/23 Tallat Specialist Rheumatology 06/03/24 [facility] neurology Specialist Neurology 06/03/24 [facility] 06/03/24 documented as of this encounter
== END 2025-08-21 14:34 | disposition home or self-care (01) ==
LOC: HO.PMC 13:50
PROVIDERS: Visit Provider Registered Nurse Emergency
DX: M53.3 Sacrococcygeal disorders, not elsewhere classified (principal); M47.816 Spondylosis without myelopathy or radiculopathy, lumbar region; M25.561 Pain in right knee; M25.562 Pain in left knee
CPT/HCPCS: 99204; G2211

== ENCOUNTER 2025-08-27 09:40 | Outpatient (AMB) | payer OTHER, SELFPAY ==
--- NOTE | 2025-08-27 09:49 | MHC.OFFVIS ---
Vital Signs 08/27/25 09:51 Height 5 ft 4 in BP 140/90 H Blood Pressure Location Lt brachial Position Sitting Pulse 74 Pulse Source Pulse Oximeter Pulse Oximetry (%) 97 Oxygen Delivery Method Room Air Intake Visit Reasons: follow up Intake Note: Patients presents for an RA follow up. Pt states that she is getting rashes everyday all day and is alot of pain. Accompanied by: Self / Same As Patient Allergies erythromycin base Allergy (Verified 08/21/25 14:01) Hives etanercept (From Enbrel) Adverse Reaction (Intermediate, Verified 08/21/25 14:01) diverticulitis leflunomide Adverse Reaction (Intermediate, Verified 08/21/25 14:01) diverticulitis prednisone Adverse Reaction (Intermediate, Verified 08/21/25 14:01) Body pain gabapentin Adverse Reaction (Mild, Verified 08/21/25 14:01) tremors Medication List - Last Reconciled 08/27/25 by Joshua Castellanos MD esomeprazole magnesium 40 mg PO QAM leg brace (Knee Support Brace) As directed left knee hinge brace Dx: osteoarthritis lorazepam 0.5 mg PO TID PRN lorazepam (Ativan) 0.5 mg PO TID PRN HPI HPI follow up: Details: She is experiencing pain mainly in her right thumb, right wrist and abdomen localized to right upper quadrant. Right thumb pain started after wrist surgery in June. After surgery she continues to experience pain. She has loss of function. She recently started occupational therapy for her wrist. She is unable to do further wrist surgery with fusion because of her personal finances with not being able to afford being out of work anymore. She does not have FMLA eligibility for another surgery at this time. Pain management is planning to give her an SI joint injection. She wakes up with foot pain sometimes. Morning stiffness is 30 minutes. No other joints are swollen. She had an appointment with her orthopedic surgeon for evaluation of knee osteoarthritis. She was disappointed with the evaluation as orthopedic surgeon did not offer her any further interventions. She continues to have chronic bilateral knee pain affecting her mobility. She has braces that she uses. She used indomethacin without benefit. I have reviewed x-ray results of bilateral knees from patient's portal access, which reveals degenerative arthritis of bilateral knees unchanged from prior x-rays. Dermatographia has gotten worse. Her skin is pruritic. [facility] Medical History Dermatographia Helicobacter pylori (H. 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 Sacroiliac joint pain Tendonitis of ankle, right Surgical History H/O decompression of ulnar nerve History of surgery Social History Household Members: Spouse and Family Housing: House Alcohol intake: current Alcohol intake frequency: a few times a month Patient Tobacco Use Status: Current everyday Tobacco user Tobacco use type: Cigarette Cigarettes Per Day: 10 Years Smoked: 15 years e-Cigarette/Vaping Use: Never Used service: No Current occupational status: employed 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 Physical Exam Vital Signs: Last Vital Signs Pulse 74 08/27/25 09:51 BP 140/90 H 08/27/25 09:51 Pulse Ox 97 08/27/25 09:51 Oxygen Delivery Method Room Air 08/27/25 09:51 Const Other: General: Comfortable Skin: Dermatographia seen on legs MSK: Tender to palpate right wrist, CMC, 1st-5th MCPs, PIPs and bilateral knees. No synovitis present. No MTP tenderness. Wrist flexion and extension of right wrist is limited. Rest of upper extremity range of motion is normal. Normal range of motion of lower extremities. Assessment & Plan Assessment & Plan (1) Rheumatoid arthritis with positive rheumatoid factor: Comment: Her main pain is associated with right wrist surgery involving right wrist and thumb. On exam she has tender MCPs and PIP of right hand, which she did not have in prior evaluations, which can be related to RA activity. She does not have any clinical signs of synovitis on exam. Repeat inflammatory markers remain normal. We discussed next steps for evaluation of subclinical inflammatory arthritis with MRI. MRI with contrast is an important study to evaluate if there is underlying inflammatory arthritis contributing to her joint pain as it will slubber frame changer guiding DMARD therapy. She has failed multiple NSAIDs to control her pain (Celebrex, meloxicam, indomethacin). She continues to have ecchymosis on her arms, right upper quadrant pain in the area where she previously had surgery and chronic back pain. She had an evaluation from pain management at [facility], who offered her intervention for her knees. She also will be seeing utility clerk Dr. Calix for management of her back pain. I recommend that she have a discussion about managing her chronic pain (RUQ and wrist) with her pain management specialists and her hand surgeon Dr. Mesa as it is currently impeding on her quality of life. Rheumatology history: Seropositive. RF 113. CCP>250. Diagnosed October 2020. Methotrexate 10/25 -05/2021 -d/c due to LFT elevations. 05/2021 - Humira started - ?improvement. 08/2022 Humira stopped for wrist surgery. leflunomide 04/2023-05/2024 DC due to diverticulitis. Enbrel 05/2023 DC 06/2023 due to diverticulitis. Remicade 04/2024 DC after 1 dose as patient had a positive QuantiFERON test. Latent TB treatment with Rifampin completed 4 months tx on 09/11/2024. CXR 05/2024 no acute pulmonary process. CT chest 12/05/2024 reveals there are few small bilateral pulmonary nodules, subcentimeter (follow-up recommended in 6 months to document stability). She reports that she had tremors and felt unwell with nausea on Remicade. History of intermittent hyperlipidemia. Prednisone causes myalgias. Methylprednisolone causes arthralgias. Meloxicam ineffective. Orencia 04/17/2025 discontinued after 3 doses due to development of ecchymosis on her arms, which Dermatology attributes it to senile purpura that may be related to a combination of factors such as normal aging, chronic sun exposure and being on blood thinners post surgery. Avoid BRITNI inhibitors due to her history of diverticulitis on background of diverticulosis. Code(s): M05.9 - Rheumatoid arthritis with rheumatoid factor, unspecified Category: Medical Qualifiers: Rheumatoid arthritis location: multiple sites Qualified Code(s): M05.79 - Rheumatoid arthritis with rheumatoid factor of multiple sites without organ or systems involvement Plan: MRI right wrist and right hand with and without contrast ordered Return to clinic in 3 months (2) Osteoarthritis of knees, bilateral: Comment: Chronic uncontrolled pain. She does not have synovitis on exam to suggest active inflammatory arthritis. Repeat inflammatory markers remain normal. Failed conservative management with cortisone injections and hyaluronic acid injections by orthopedic surgeon in April. Failed nabumetone, indomethacin, Celebrex, meloxicam and bracing. She has history of left ACL tear. She recently had a visit with her orthopedic surgeon who did not offer her any further interventions. We discussed next steps in evaluation of her pain with MRI to assess if there is any component of subclinical inflammatory arthritis contributing to her knee pain, which would be an atypical presentation of rheumatoid arthritis. MRI we will also aid in diagnosing ligament injury contributing to her pain. Code(s): M17.0 - Bilateral primary osteoarthritis of knee Category: Medical Qualifiers: Osteoarthritis type: primary Qualified Code(s): M17.0 - Bilateral primary osteoarthritis of knee Plan: MRI bilateral knees with and without contrast ordered to evaluate for inflammatory arthritis contributing to her knee pain as it will slubber frame changer with addition of DMARD therapy. If MRIs do not indicate inflammatory arthritis, it will aid management of her chronic knee pain with directed treatment for osteoarthritis: Gabapentin, duloxetine or geniculate nerve block Requesting bilateral knee x-ray recent results from [facility] Return to clinic in 3 months Orders: Orders Creatinine Today M05.79 - Rheumatoid arthritis with rheumatoid factor of multiple sites without organ or systems involvement Complete Blood Count Auto Diff Today M05.79 - Rheumatoid arthritis with rheumatoid factor of multiple sites without organ or systems involvement MR hand RT wo/w con Today M05.79 - Rheumatoid arthritis with rheumatoid factor of multiple sites without organ or systems involvement MR knee LT wo/w con Today M05.79 - Rheumatoid arthritis with rheumatoid factor of multiple sites without organ or systems involvement, M17.0 - Bilateral primary osteoarthritis of knee C Reactive Protein Today M05.79 - Rheumatoid arthritis with rheumatoid factor of multiple sites without organ or systems involvement, Z79.899 - Other terminal system operator (current) drug therapy Erythrocyte Sedimentation Rate Today M05.79 - Rheumatoid arthritis with rheumatoid factor of multiple sites without organ or systems involvement, Z79.899 - Other terminal system operator (current) drug therapy Liver Panel Today M05.79 - Rheumatoid arthritis with rheumatoid factor of multiple sites without organ or systems involvement MR wrist RT wo/w con Today M05.79 - Rheumatoid arthritis with rheumatoid factor of multiple sites without organ or systems involvement MR knee RT wo/w con Today M05.79 - Rheumatoid arthritis with rheumatoid factor of multiple sites without organ or systems involvement Coding Level of Care Code Est Pt Level 4 (81168) Complex EM visit Add On G2211 Diagnoses Rheumatoid arthritis involving multiple sites with positive rheumatoid factor M05.79 Rheumatoid arthritis location: multiple sites Primary osteoarthritis of both knees M17.0 Osteoarthritis type: primary Time Spent (min) 30
[2025-08-27 09:51] VITALS: BP 140/90; PULSE 74; O2SAT 97
--- OUTSIDE RECORDS SUMMARY | 2025-08-27 11:19 | XMS_ITS | Encounter Summary ---
Author Organization [facility] Address [address] [place] [address] [place] [address] Phone Care Team Providers Care Cane Stripper Name Role Phone Vee Allan MD Primary Care Pr ovider Encounter Details Date Type Department Care Team (Late st Contact Info) Description 10/08/2020 Ancillary Orders [facility] - Orthopaedics Outpatient Practice [address] [facility], 1st Floor, [address] [place] [address] Finn Bone MD [address] [place] [address] [email or web address] Hand joint pain Social History Tobacco Use [...] hand documented in this encounter Care Teams Cane Stripper Relationship Specialty Start Date End Date Vee Allan MD [address] [place] [address] PCP - General Internal Medicine 09/01/20 documented as of this encounter Additional Source Comments The information contained in this document represents components of the legal health record. It is not the complete legal health record.[facility]
--- OUTSIDE RECORDS SUMMARY | 2025-08-27 11:19 | XMS_ITS | Continuity of Care Document ---
Author Organization [facility] [address] [place] [address] Phone [phone] Care Team Providers Care Veneer Jointer Name Role Phone Vee Queen M.D Care Team Informa t[facility] Recovery Room Rn [phone] Problems Active Problems Provider Date Anxiety Eric [...] Medications SIG Qnty Indications Ordering Provider Date Sqbxwgvqschlx1ce Tablets 1 tabs by mouth at 11pm 1tabs Eric Shah M.D. 12/01/2022 Msxrhrgly800va Capsules Take 1 Capsule By Mouth 2 Times A Day Terence Olvera MD Eunaqrpuakeysgtriw7j g TBPK follow package directions Unknown Vital Signs Date Vital Result Comment 12/01/2022 11:00am BP Systolic 130 mmHg BP Diastolic 70 mmHg Heart Rate 72 /min Height 64 inches 5'4 Weight 185.00 lb BMI (Body Mass Index) 31.8 kg/m2 Results Test Acquired Date Facility Test Result H/L Range N ote Cortisol 01/20/2023 [facility] Refer ce Lab Cortisol 0.6 g/dL 1 Cortisol 01/06/2023 [facility] Refer ce Lab Cortisol <pending> Cortisol 01/05/2023 [facility] Refer ce Lab Cortisol 5.3 g/dL 2 Free T4 01/05/2023 [facility] Referen ce Lab Free T4 0.98 ng/dL (0.70-1.80) TSH [facility] 0.52 uIU/mL (0.4-4.2) Free T4 01/04/2023 [facility] Referen ce Lab Free T4 <pending> TSH 01/04/2023 [facility] ce Lab TSH <pending> 1 Reference [...]
--- OUTSIDE RECORDS SUMMARY | 2025-08-27 11:19 | XMS_ITS | Data Portability ---
Author Organization [facility], [address] Address [address] [place] [address] Care Team Providers Care Otc Clerk Name Role Phone [facility] Primary Care Provi ramses Assessment No assessment recorded. Plan of Treatment Reminders Order Date Submit Date Provider Last Modified By Organization Details Last Modified Time Details Appointments None recorded. Lab rapid strep group A, throat 2022 023 [email or web address] [facility], [address] [place] [address], [address], 3 19:09:54 streptococc us group A, culture, throat 2022 023 [email or web address] [facility], [address] [place] [address], [place], [address], 3 19:09:54 Referral emergency medicine referral - left lower facial weakness and numbness x 5 days [email or web address] Emergency Department, [address] [place], [address], 4 18:35:48 Procedures None recorded. Surgeries None recorded. Imaging None recorded. Medication Orders prednisone 20 mg tablet 2022 023 [email or web address] 5 [id number], [address] [place], [address], 4 16:05:23 benzonatate 200 mg capsule 2022 023 [email or web address] 5 [id number], [address] [place], [address], 16:05:13 Patient TargetsNo targets recorded. Patient Instructions Encounter Date Encounter Id Patient Instructions Last Modified By Organization Details Last Modified Time 12/17/2022 [id number] sore throat: car e instructions [email or web address] Not [...] care for yourself at home? Take an yvqp-qfy-syqbqgw pain medicine. Avoid Ibuprofen, Aleve and Aspirin if . If the doctor prescribed antibiotics, take them as directed. Do not stop taking them just because you feel better. You need to take the full course of antibiotics. Be careful when taking ohfa-mfi-byydjhi cold or influenza (flu) medicines and Tylenol [...] worse. [email or web address] Not available 12/17/2022 19:07:18 05/19/2024 [id number] head or face zehra n: care instructions [...] Range : Negat aashish Not Available [facility] ([facility][1]) [address] [facility], [place], [address], 12/21/2022 06:07:48 12/17/1912/17/2022 rapid strep group A, throa t Unknown Analyte Normal = Negati ve Not Available [address] [place], [address], 12/17/2022 18:34:11 12/17/1912/17/2022 rapid strep group A, throa t Unknown Analyte negati ve Not Available [address] [place], [address], 12/17/2022 18:34:11 Result Notes None recorded. 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 0.5 PPD [email or web address] Information not available 12/17/2022 Have You Recently Traveled Abroad? No [email or web address] Information not available 12/17/2022 Sex: Unknown Functional Status Question Answer Note LastModified by Organizat ion Details LastModified Time Do you use any illicit or recreational drugs? No [email or web address] Information not available 12/17/2022 Do you or have you ever used any other forms of tobacco or nicotine? No [email or web address] Information not available 12/17/2022 What is your level of alcohol consumption? Occasional Information not available 05/19/2024 Mental Status None recorded. Family History Relationship Description Onset Age of this Age Resolved Age Notes LastModified by Organization Details LastModified Time Unspecified Relation Disorder of thyroid gland [email or web address] Not available 2022 18:38:50 Medical History No [...] ICD10 Code Diagnosis IMO Codes Diagnosis [place] [id number] [place] [address] [address] 12/17/2022 17:31:11 12/17/2022 19:17:28 Sore throat 363866075 J02.9 [id number] [place] [address] [address] 05/19/2024 15:59:19 05/19/2024 16:21:39 Numbness of face 751205207 R20.0 ER now !!! Health Concerns Section Related Observation LastModified by Organization Detai ls LastModified Time None Recorded Concern Status LastModified by Organization Details LastModified Time None Recorded Advance Directives Directive None Recorded Payers Insurance Date Sequence Insurance Name Policy Number Policy Chacko Covered Member ID Chacko Member ID Guarantor Name 05/19/2024 2 [facility] [id number] [facility] 05/19/2024 1 [facility] SHARED [facility] - HA - DOS PRIOR TO 2024 (PPO) [facility] [id number] [facility] 12/17/2022 2 [employer] (POS) [facility] [id number] [facility] 05/19/2024 1 [employer] S[employer] - GEHA - DOS ON OR BEFORE 11/05/2023 - GEHA (PPO) [facility] [id number] [facility] 05/02/2023 1 [employer] [facility] [id number] [facility] Notes Date Note Type Note Provider Name and Address Organization Details Recorded Time 12/17/2022 text/html Sore throatRepor bao by PatientSore ThroatFor associated symptoms, patient reportssore [...] Narendra Diaz NP [address] [place], [address], [place] - [facility] 12/17/2022 19:11:14 05/19/2024 text/html Facial ProblemRe ported by Patient a couple of weeks. twitching in face. x5 days having facial pain. pain level is 5/10. feels slight numbness on left side of mouth. patient also notices lower facial weakness as well. no chest pain. has slight head ache Juan F Noe DO [address] [place], [address], [place] - [facility] 05/19/2024 16:42:19 OBGyn Episode No OBEpisode recorded.
--- OUTSIDE RECORDS SUMMARY | 2025-08-27 11:19 | XMS_ITS | Encounter Summary ---
Author Organization [facility] Address [address] [place] [address] [place] [address] Phone Care Team Providers Care Bleach Supervisor Name Role Phone Vee Allan MD Primary Care Pr ovider Encounter Details Date Type Department Care Team (Late st Contact Info) Description 10/08/2020 Ancillary Orders [facility] Outpatient [facility] [address], [address], [address] [place] [address] Finn Bone MD [address] [place] [phone] [email or web address] Hand joint pain Social History [...] hand documented in this encounter Care Teams Bleach Supervisor Relationship Specialty Start Date End Date Vee Allan MD [address] [place] [phone] PCP - General Internal Medicine 09/01/20 documented as of this encounter Additional Source Comments The information contained in this document represents components of the legal health record. It is not the complete legal health record.[facility]
--- OUTSIDE RECORDS SUMMARY | 2025-08-27 11:19 | XMS_ITS | Clinical Summary ---
Author Organization [facility] Address [address] [place] [address] Phone Care Team Providers Care Customer Account Manager Name Role Phone Vee Allan MD [...] Medical Devices Not on file Care Teams Customer Account Manager Relationship Specialty Start Date End Date Vee Allan MD [address] [place] [phone] PCP - General Internal Medicine 09/01/20 Additional Source Comments The information contained in this document represents components of the legal health record. It is not the complete legal health record.[facility]
--- OUTSIDE RECORDS SUMMARY | 2025-08-27 11:19 | XMS_ITS | Clinical Summary ---
Author Organization [facility] Address [address] [place] [address] Care Team Providers Care Supervisor Graphite Name Role Phone Vee Allan MD Primary [...] age to complete this topic Care Teams Supervisor Graphite Relationship Specialty Start Date End Date Vee Allan MD PCP - General Internal Medicine 12/05/19
== END 2025-08-27 10:38 | disposition home or self-care (01) ==
LOC: HO.RHES 09:41
PROVIDERS: Visit Provider Internal Medicine Rheumatology
DX: M05.79 Rheumatoid arthritis with rheumatoid factor of multiple sites without organ or systems involvement (principal); M17.0 Bilateral primary osteoarthritis of knee
CPT/HCPCS: 99214; G2211

== ENCOUNTER 2025-08-27 09:40 | Outpatient (REF) | payer OTHER, SELFPAY ==
--- OUTSIDE RECORDS SUMMARY | 2024-08-06 08:23 | XMS_ITS | Encounter Summary ---
Author Organization [facility] Address [address] [place] [address] Care Team Providers Care Vacuum Cleaner Repair Person Name Role Phone Unavailable Primary Care Provider Unavailabl e Encounter Details Date Type Department Care Team (Late st Contact Info) Description 08/06/2024 8:23 AM EDT Hospital Encounter TH HISTORIC ENCOUNTERS EASTERN CONVERSION ONLY Tutu Trivedi MD [address] [place] [address] Social History Tobacco Use Types Packs/Day Years Used Date Smoking Tobacco: Some Days Cigarettes 0.5 48.8 Started: 1974 Smokeless Tobacco: Never Alcohol Use [...] 4:01 PM EDT Karin Vera RN * [place] Suicide Severity Rating Scale (Screener/Recent Self-Report) Question Answer Date of Assessment Author 1. Wish to be (Past 1 Month) No 07/08/2025 4:01 PM EDT Karin Morton RN 2. Non-Specific Active Suici beth Thoughts (Past 1 Month) No 07/08/2025 4:01 PM EDT Trev Morton RN 6. Suicidal Behavior (Lifetime) No 5 4:01 PM EDT Karin oMrton RN 6. Suicidal Behavior (3 Months) No [...] Care Team (Late st Contact Info) Description 08/28/2025 1:30 PM EDT Treatment [facility] Occupational Therapy 175 [facility] [address] [place] [address] Nichelle Milian OT 09/23/2025 3:45 PM EST Office Visit Orthopedic Surgery - [place] 175 [facility] [address] [place] [address] Bessy Mesa MD [address] [place] [phone] documented as of this encounter Goals Goal Patient Goal Type Associated Problems Recent Progress Patient-Stated? Author OT 6-8 visits General No Nichelle Milian OT Note: 1> Indep HEP (splint weaning, ROM, pain manage, eventual strength) 2. Dominant R heading machine operator strength at least 35# (vs 20initial, vs 47 L hand) 3. R wrist ext AROM at least 55 w/ tolerance for weightbearing during sit to stand 4. R wrist flex AROM at least 45 5. Reported tolerance for home manage/work duties of mod resistance not exceed 2/10 pain documented as of this encounter Visit Diagnoses [...]
--- OUTSIDE RECORDS SUMMARY | 2024-11-04 09:00 | XMS_ITS ---
Author Organization [facility] Address [address] [place] [address] Care Team Providers Care Sign Manufacturer Name Role Phone IKER ROBLERO PA-C Primary Care Provider Latonya Ramirez Unavailable [phone] Allergies Allergen (clinical drug ingredient) Drug/Non Drug Allergy documented on EMR Reaction Allergy Type Onset Date Status erythromycin ERYTHROMYCIN Skin Rash Drug Allergy A ctive REASON FOR VISIT PAP AFTER PREMARIN USE Encounters Encounter Location Date Provider Diagnosis [address] [address] 11/04/2024 Latonya Lozano Plan Of Treatment No Information Progress Notes * DAWSON OLSONMOONOB:1965 (60 yo F)Acc No.[id number]:11/04/2024 PROGRESS NOTES Patient: MARCUS RODRIGUEZ Appointment Provider: Shannon Lozano M.D. :1965 A ge:59 Y S ex:Female Date:11/04/2024 Address:[address] [place], [place] [phone] Pcp:IKER ROBLERO PA-C Subjective: * Chief Complaints: [...] on cytologic smear of cervix (ASC-US). * Seasoning Sprayer History: G ravida/ Para 2 /2. S exual activity n ot currently sexually active. L ast Pap Smear: ASCUS, POS HRHPV (Neg 16, 18/45), 03/28/22 LGSIL, POS HRHPV (neg 16, 18/45), 11/21/17 NEG HRHPV, 2011. M ammogram: < 50% density, 02/27/19 < 50% density, 07/26/2017 normal, 07/2016 with follow up Lt Diagnostic 07/09/2016 Bx recommended. A bnormal Pap Smear: [place] Negative, 06/06/22 [place] Negative, 03/2022 LGSIL, + HRHPV. L MP [...] Electronic signature of Pato Lozano MD on 08/27/2025 at 01:49 PM EDT Sign off status: Pending * Appointment Provider: Shannon Lozano M.D. Date: Generated for Renay bear/Hilton/Lambertoitting on: 01:49 PM EDT
--- OUTSIDE RECORDS SUMMARY | 2024-12-05 06:40 | XMS_ITS ---
Author Organization [facility] Address [address] [place] [phone] Care Team Providers Care Client Insights Consultant Name Role Phone IKER ROBLERO PA-C Primary Care Provider Latonya Ramirez Unavailable [phone] Allergies Allergen (clinical drug ingredient) Drug/Non Drug [...] 6-10 Encounters Encounter Location Date Provider Diagnosis [address] [address] 12/05/2024 Latonya Lozano Plan Of Treatment No Information Progress Notes * MIS OLSONOB:1965 (60 yo F)Acc No.[id number]:12/05/2024 PROGRESS NOTES Patient: MARCUS RODRIGUEZ Appointment Provider: Shannon Lozano M.D. :1965 A ge:59 Y S ex:Female Date:12/05/2024 Address:[address] [place] [address] Pcp:IKER ROBLERO PA-C Subjective: * Chief Complaints: [...] on cytologic smear of cervix (ASC-US). 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 S exual activity n ot currently sexually active. L ast Pap Smear: ASCUS, POS HRHPV (Neg 16, 18/45), 03/28/22 LGSIL, POS HRHPV (neg 16, 18/45), 11/21/17 NEG HRHPV, 2011. M ammogram: < 50% density, 02/27/19 < 50% density, 07/26/2017 normal, 07/2016 with follow up Lt Diagnostic 07/09/2016 Bx recommended. A bnormal Pap Smear: [place] Negative, 06/06/22 [place] Negative, 03/2022 LGSIL, + HRHPV. L MP [...] of Pato Lozano MD on 08/27/2025 at 01:47 PM EDT Sign off status: Pending * Appointment Provider: Shannon Lozano M.D. Date: 0 12/05/2024 Generated for Renay bear/Hilton/Shaquille on: 01:47 PM EDT
--- OUTSIDE RECORDS SUMMARY | 2025-02-14 07:00 | XMS_ITS ---
Author Organization [facility] Address [address] [place] [address] Care Team Providers Care Onsite Health Coach Name Role Phone IKER ROBLERO PA-C Primary Care Provider Unav Latonya Panda Unavailable [phone] REASON FOR VISIT ULTRA - CK OVARIES ? DERMOID ON RT ADNEXA ON X RAY Encounters Encounter Location Date Provider Diagnosis [facility] [address] 02/14/2025 Latonya Lozano Plan Of Treatment No Information Progress Notes * DAWSON OLSONMOONOB:1965 (60 yo F)Acc No.[id number]:02/14/2025 PROGRESS NOTES Patient: MARCUS RODRIGUEZ Appointment Provider: Shannon Lozano M.D. :1965 A ge:59 Y S ex:Female Date:02/14/2025 Address:[address] [place], [place] [address] Pcp:IKER ROBLERO PA-C Subjective: * Chief Complaints: [...] 02/14/2025 Generated for Renay bear/Hilton/eTransmitting on: 1 01:47 PM EDT
--- OUTSIDE RECORDS SUMMARY | 2025-03-03 09:10 | XMS_ITS ---
Author Organization [facility] Address [address] [place] [address] Care Team Providers Care Player Piano Technician Name Role Phone IKER ROBLERO PA-C Primary Care Provider Latonya Ramirez Unavailable [phone] Allergies Allergen (clinical drug ingredient) Drug/Non Drug [...] Active Encounters Encounter Location Date Provider Diagnosis [address] [address] 03/03/2025 Latonya Lozano Plan Of Treatment No Information Progress Notes * MIS OLSONOB:1965 (60 yo F)Acc No.[id number]:03/03/2025 Patient: Bhavna DIORMARCUS Appointment Provider: Shannon Lozano M.D. :1965 A ge:59 Y S ex:Female Date:03/03/2025 Address:[address] [place] [address] Pcp:IKER ROBLERO PA-C Subjective: * Chief Complaints: [...] on cytologic smear of cervix (ASC-US). * Captain Room Service History: G ravida/ Para 2 /2. S exual activity n ot currently sexually active. L ast Pap Smear: ASCUS, POS HRHPV (Neg 16, 18/45), 03/28/22 LGSIL, POS HRHPV (neg 16, 18/45), 11/21/17 NEG HRHPV, 2011. M ammogram: < 50% density, 02/27/19 < 50% density, 07/26/2017 normal, 07/2016 with follow up Lt Diagnostic 07/09/2016 Bx recommended. A bnormal Pap Smear: [place] Negative, 06/06/22 [place] Negative, 03/2022 LGSIL, + HRHPV. L MP [...] of Pato Lozano MD on 08/27/2025 at 01:48 PM EDT Sign off status: Pending * Appointment Provider: Shannon Lozano M.D. Date: 0 03/03/2025 Generated for Renay bear/Hilton/Sh[place]ille on: 1 01:48 PM EDT
--- OUTSIDE RECORDS SUMMARY | 2025-03-06 06:00 | XMS_ITS ---
Author Organization [facility] Address [address] [facility] [address] [place] [address] Care Team Providers Care Roll Press Operator Name Role Phone IKER ROBLERO PA-C Primary Care Provider Latonya Ramirez Unavailable [phone] Allergies Allergen (clinical drug ingredient) Drug/Non Drug [...] Gabapentin 100 MG TAKE 1 CAPSULE BY [facility] 3 TIMES A DAY Oral; [...] 6-10 Encounters Encounter Location Date Provider Diagnosis [address] [place] [address] 03/06/2025 Latonya Lozano Plan Of Treatment No Information Progress Notes * DAWSON OLSONENDOB:1965 (60 yo F)Acc No.[id number]:03/06/2025 Patient: MARCUS RODRIGUEZ Appointment Provider: Shannon Lozano M.D. :1965 A ge:59 Y S ex:Female Date:03/06/2025 Address:[address] [place], [place] [phone] Pcp:IKER ROBLERO PA-C Subjective: * Chief Complaints: [...] on cytologic smear of cervix (ASC-US). * Measuring Machine Tender History: G ravida/ Para 2 /2. S exual activity n ot currently sexually active. L ast Pap Smear: ASCUS, POS HRHPV (Neg 16, 18/45), 03/28/22 LGSIL, POS HRHPV (neg 16, 18/45), 11/21/17 NEG HRHPV, 2011. M ammogram: Breast Tissue is Almost Entirely Fatty, , 02/27/19 < 50% density, 07/26/2017 normal, 07/2016 with follow up Lt Diagnostic 07/09/2016 Bx recommended. A bnormal Pap Smear: [place] Negative, 06/06/22 [place] Negative, 03/2022 LGSIL, + HRHPV. L MP [...] 03/06/2025 Generated for Renay bear/Hilton/Lambertoitting on: 1 01:48 PM EDT
--- OUTSIDE RECORDS SUMMARY | 2025-05-06 10:45 | XMS_ITS ---
Author Organization [facility] Address [address] [place] [address] Care Team Providers Care Kennel Manager Name Role Phone IKER ROBLERO Unavailable [phone] Sneha Holden Unavailable [phone] REASON FOR VISIT red and purple dots on her skin and muscle weakness for two days. Encounters Encounter Location Date Provider Diagnosis [facility] [address] [place] [address] [place] [address] 05/06/2025 Sneha Holden Plan Of Treatment No Information Progress Notes * Bradley OLSONTayeOB:1965 (60 yo F)Acc No.[id number]:05/06/2025 Progress Notes Patient: María RODRIGUEZ Provider: Felton Holden PA-C :1965 A ge:59 Y S ex:Female Date:05/06/2025 Address:[address] [facility] Subjective: * Chief Complaints: * 1 . Red and purple dots on her skin and muscle weakness for two days.. * Medical History: Objective: * Vitals: Assessment: Plan: * Treatment: Care Plan: * Problems: * Images: Billing Information: * Visit Code: * Procedure Codes: Care Plan Details* * Electronic signature of Cher Holden PA-C on 08/27/2025 at 01:49 PM EDT Sign off status: Pending * Provider: Felton Holden PA-C Date: 0 05/06/2025 Generated for Printi ng/Fahollandg/eTransmitting on: 1 01:49 PM EDT
[2025-08-27 13:16] LABS: MANUAL DIFF FLAG NO
[2025-08-27 13:30] LABS: Hematocrit 40.0 % (37.0-47.0); Hemoglobin 13.6 g/dl (12.0-16.0); Imm Gran Abs Auto 0.03 X10*3/uL (0.00-0.03); Imm Gran Pct Auto 0.4 % (0.0-0.4); Lymphocytes Absolute Auto 2.1 X10*3/uL (1.2-4.9); Mean Corpuscular HGB Conc 34.0 g/dl (31.0-35.0); Mean Corpuscular Hemoglobin 32.4 pg (27.0-33.0); Mean Corpuscular Volume 95.2 fL (80.0-98.0); NRBC Abs Auto 0.000 X10*3/uL (0.0-0.012); NRBC Pct Auto 0.0 /100WBC (0.0-0.2); Platelet Count 355 X10*3/uL (160-400); Red Blood Count 4.20 X10*6/uL (4.20-5.50); White Blood Count 8.6 X10*3/uL (4.8-10.8)
[2025-08-27 13:42] LABS: Alanine Aminotransferase 27 U/L (0-31); Albumin Level 4.3 g/dL (3.5-5.0); Alkaline Phosphatase 120 U/L (39-117); Aspartate Amino Transferase 19 U/L (5-31); Estimated Glomerular Filt Rate > 60; Total Protein 6.9 g/dL (6.5-8.0)
--- OUTSIDE RECORDS SUMMARY | 2025-08-27 13:48 | XMS_ITS | Patient Health Record ---
Author Organization [facility] [address] Address [address] [place] [address] Care Team Providers Care Business Information Manager Name Role Phone IKER ROBLERO Unavailable [phone] MILESROGELIO CHRISCHINO Unavailable [phone] Sneha Holden Unavailable [phone] Allergies Allergen (clinical drug ingredient) Drug/Non Drug Allergy documented on EMR Reaction Allergy Type Onset Date Status Macrolides and Ketolides hives Drug Allergy Active Results Component Value Reference Range Notes XR SHOULDER 2+ VIEWS BILAT Reviewed date:01/08/2025 05:02:44 PM Interpretation: Performing Lab: Notes/Report: Note See Note [facility], a member of [employer] Patient Name: MARÍA PHILLIPS Date of : 1965 Reason for Exam: bilateral shoulder pain Exam Date: 01/08/2025 [id number] EST Report Status: Final Ordering Provider: NICHELLE [...] and narro wing of subacromial space XR CERVICAL SPINE 4-5 VIEWS Reviewed date:11/19/2024 04:14:57 PM Interpretation: Performing Lab: Notes/Report: Note See Note [facility], a member of [employer] Patient Name: MARÍA PHILLIPS Date of : 1965 Reason for Exam: OTHER Exam Date: 11/18/2024 [id number] EST Report Status: Final Ordering Provider: IKER [...] to the prior neck CTA. Telerad TL ([id number]) -------- FINAL REPOR T -------- Dictated By: Dayami Walker i Dictated Date: 11/19/2024 13:40 ET Assigned Physician: Dayami Diehl Reviewed and Electronically Signed By: Dayami Diehl Signed Date: 025 13:45 ET Workstation ID: [id number] Transcribed By: Self Edit Transcribed Date: 11/19/2024 13:40 ET CAMILO IFA WITH TITER AND GIOVANNA SAMSON [...] K/mcL Immature Granulocytes Absolute 0.05 0.00-0.03 K/mcL EKG (Not yet reviewed by pro vider) Interpretation: Performing Lab: Notes/Report: ECGDiastolicBP 68 ECGHr 73 ECGPRInterval 158 ECGPWaveAxis 34 ECGQRSDuration 78 ECGQrsWaveAxis 33 ECGQTcInterval 404 ECGQTInterval 382 ECGSystolicBP 116 ECGTWaveAxis 31 RR_DiastolicBP 0 RR_MaxRRInterval 0 RR_MeanHR 0 RR_MeanRRInterval 0 RR_MinRRInterval 0 RR_NumBeats 0 RR_NumNormalBeats 0 RR_SystolicBP 0 XR KNEE 4+ VIEWS BILAT Reviewed date:08/19/2025 08:27:06 AM Interpretation: Performing Lab: Notes/Report: Note See Note [facility], a member of [employer] Patient Name: MARÍA PHILLIPS Date of : 1965 Reason for Exam: bilateral knee pain Exam Date: 08/14/2025 [id number] EST Report Status: Final Ordering Provider: CELIA ROMO PCP: IKER ROBLERO 4 views weightbearin g of bilateral knees obtained today reviewed including AP, Gomez, later al, sunrise. Left knee x-rays rubén w mild to [...] not progressed from prior x-rays obtained 01/22/2025. THYROID STIMULATING IMMUNOGL OBULIN Reviewed date:07/29/2025 07:58:42 [...] 0.11 to 0.39 IU/L. Test performed at [facility], [address], [place] [address] Krystina Austin MD, PhD - Garage Attendant [facility] Reviewed date:03/24/2025 07:44:44 AM Interpretation: Performing Lab: [...] K/mcL Immature Granulocytes Absolute 0.04 0.00-0.03 K/mcL BORRELIA BURGDORFERI ANTIBOD Y Reviewed date:12/06/2024 12:06:22 PM Interpretation: Performing Lab: Notes/Report: Lyme Ab Negative Negative No laboratory evidence of infection with B. burgdorferi (Lyme disease). Negative results may occur in patients recently infected (<=14 days) with B. burgdorferi. If recent infection is suspected, repeat testing on a new sample collected in 7-14 days is recommended. XR WRIST 3+ VIEWS RIGHT Reviewed date:08/13/2025 08:18:07 AM Interpretation: Performing Lab: Notes/Report: Note See Note [facility], a member of [employer] Patient Name: MARÍA PHILLIPS Date of : 1965 Reason for Exam: right wrist pain Exam Date: 08/12/2025 [id number] EST Report Status: Final Ordering Provider: DUC [...] Impression: Advanced avascular necrosis of the lunate HELICOBACTER PYLORI ANTIGEN, STOOL Reviewed date:08/05/2025 03:02:36 PM Interpretation: Performing Lab: Notes/Report: Helicobacter Pylori Ag Not detected Not detected This test was performed at [facility] using a chemiluminescent immunoassay intended for the [...] Food and Drug Administration. Test performed at [facility], [facility] [place] [place] [address] Krystina Austin MD, PhD - Garage Attendant CULTURE ANAEROBIC WITH GRAM STAIN Reviewed date:07/24/2025 [...] SPECIES, NO T ANTHRACIS Report Susceptibility Report CULTURE WOUND DEEP Reviewed date:07/21/2025 01:17:57 PM Interpretation: Performing Lab: Notes/Report: Culture, Wound No growth at 3 days Gram Stain Result No polymorphonuclear leukocytes, No epithelial cells, and No organisms noted TSH Rfx on Abnormal to Free [id number] Reviewed date:07/15/2025 03:58:09 PM Interpretation: Performing Lab:[facility], [address] [facility], Phone - [phone], Director - MDJodry Notes/Report: TSH 0.436 0.450-4.500 uIU/mL T4,Free (Direct) 1.14 0.82-1.77 ng/dL Comp. Metabolic Panel (14)-3 Reviewed date:07/15/2025 08:25:45 AM Interpretation: Performing Lab:[facility], [address] [facility], [place], Phone - [phone], Director - MDJodry Notes/Report: Glucose 75 70-99 [...] (SGPT) 22 0-32 IU/L CBC With Differential/Platel et-[id number] Reviewed date:07/15/2025 08:25:37 AM Interpretation: Performing Lab:[facility], [address], [place], Phone - [phone], Director - Elsa Notes/Report: WBC 7.7 3.4-10.8 [...] % Immature Grans (Abs) 0.0 0.0-0.1 x10E3/uL Ferritin-100798 Reviewed date:07/15/2025 08:25:45 AM Interpretation: Performing Lab:[facility] [place], [address] [place] [address], Phone - [phone], Director - MNIggy Notes/Report: Ferritin 85 15-150 ng/mL Iron and TIBC-[id number] Reviewed date:07/15/2025 03:58:09 PM Interpretation: Performing Lab:[facility] [place], [address] [place] [address], Phone - [phone], Director - Elsa Notes/Report: Iron Bind.Cap.(TIBC) 371 [...] 10% NB formalin fixed and paraffin embedded. CT CHEST WO CONTRAST Reviewed date:06/03/2025 12:20:20 PM Interpretation: Performing Lab: Notes/Report: Note See Note [facility], a member of [employer] Patient Name: MARÍA PHILLIPS Date of : 1965 Reason for Exam: PULMONARY NODULE Exam Date: 05/28/2025 [id number] EST Report Status: Final Ordering Provider: IKER ROBLERO PCP: IKER ROBLERO History: Pulmonary nodule follow-up. Comparison: 12/05/24 Technique: Helical volumetric imaging of the thorax was performed without IV contrast. DLP: 279.09 mGy/cm [employer] Iterative reconstruc tion technique Findings: The trachea [...] 2. No developing thoracic lymphadenopathy. [place] ([id number]) -------- FINAL REPOR T -------- Dictated By: Dayami Walker i Dictated Date: 06/02/2025 09:00 ET Assigned Physician: Dayami Diehl Reviewed and Electronically Signed By: Dayami Diehl Signed Date: 025 09:13 ET Workstation ID: [id number] Transcribed By: Self Edit Transcribed Date: 06/02/2025 09:00 ET NM HEPATOBILIARY SYSTEM IMAG ING Reviewed date:05/15/2025 03:07:20 PM Interpretation: Performing Lab: Notes/Report: Note See Note [facility], a member of [facility] Patient Name: MARÍA PHILLIPS Date of : 1965 Reason for Exam: Abdominal pain, upper, recurrent, post cholecystectomy Exam Date: 05/15/2025 [id number] EST Report Status: Final Ordering Provider: ALEXEI [...] Normal hepatobiliary scintigraphy status post cholecystectomy. Telerad PA ([id number]) -------- FINAL REPOR T -------- Dictated By: Dayami Walker i Dictated Date: 05/15/2025 11:46 ET Assigned Physician: Dayami Diehl Reviewed and Electronically Signed By: Dayami Diehl Signed Date: 11:48 ET Workstation ID: [id number] Transcribed By: Self Edit Transcribed Date: 05/15/2025 11:46 ET XR HAND 3+ VIEWS RIGHT Reviewed date:05/15/2025 07:58:11 AM Interpretation: Performing Lab: Notes/Report: Note See Note [facility], a member of [facility] Patient Name: MARÍA PHILLIPS Date of : 1965 Reason for Exam: pain Exam Date: 05/14/2025 [id number] EST Report Status: Final Ordering Provider: JOSHUA [...] osteoarthritis of the first carpal-metacarpal articulation. Code 71804, 72762 -------- FINAL REPOR T -------- Dictated By: Mauro Wright Dictated Date: 05/15/2025 07:41 ET Assigned Physician: Mauro Wright Reviewed and Electronically Signed By: Mauro Wright Signed Date: 07:44 ET Workstation ID: [id number] Transcribed By: Self Edit Transcribed Date: 05/15/2025 07:41 ET XR WRIST 3+ VIEWS RIGHT Reviewed date:05/15/2025 07:58:21 AM Interpretation: Performing Lab: Notes/Report: Note See Note [facility], a member of [employer] Patient Name: MARÍA PHILLIPS Date of : 1965 Reason for Exam: Exam Date: 05/14/2025 [id number] EST Report Status: Final Ordering Provider: JOSHUA KAPLAN PCP: IKER ROBLERO Please see combined report with radiographs of the right hand. -------- FINAL REPOR T -------- Dictated By: Mauro Wright Dictated Date: 05/15/2025 07:41 ET Assigned Physician: Mauro Wright Reviewed and Electronically Signed By: Mauro Wright Signed Date: 07:41 ET Workstation ID: [id number] Transcribed By: Self Edit Transcribed Date: 05/15/2025 07:41 ET CALPROTECTIN, STOOL Reviewed date:05/12/2025 05:08:37 PM Interpretation: Performing Lab: Notes/Report: Calprotectin, Fecal 16.5 <50 mcg/g <50 mcg/g Normal 50 - 120 mcg/g Borderline >120 mcg/g Abnormal Borderline results suggest repeat testing in 4 to 6 weeks. Test performed at [facility], [address] [place] [address] Krystina Austin MD, PhD - Garage Attendant HELICOBACTER PYLORI ANTIGEN, STOOL Reviewed date:05/13/2025 04:03:38 PM Interpretation: Performing Lab: Notes/Report: Helicobacter Pylori Ag DETECTED Not detected This test was performed at [facility] using a chemiluminescent immunoassay intended for [...] Food and Drug Administration. Test performed at [facility], [address] , [place] [address] Krystina Austin MD, PhD - Garage Attendant GASTROINTESTINAL PATHOGENS Magdalena PATRICK STUDY Reviewed date:05/08/2025 [...] CLOSTRIDIOIDES DIFFICILE, NO ADDITIONAL TESTING IS NECESSARY. HEMOGLOBIN A1C Reviewed date:05/06/2025 03:59:06 PM Interpretation: [...] 3.2-5.0 g/dL Total Bilirubin 0.4 0.0-1.4 mg/dL URINALYSIS WITH REFLEX MICRO SCOPIC AND CULTURE Reviewed date:03/24/2025 07:44:34 AM Interpretation: Performing Lab: Notes/Report: Specific [place] Urine 1.010 1.003-1.030 pH, Urine 8.0 5.0-8.0 pH Leukocytes, Urine Negative Negative Nitrite, Urine Negative Negative Protein, Urine Negative <=Trace mg/dL Glucose, Urine Negative Negative mg/dL Ketones, Urine Negative Negative mg/dL Urobilinogen, Urine 0.2 0.2-1.0 mg/dL Bilirubin, Urine Negative Negative Blood, Urine Negative Negative XR FLUORO UP TO 1 HOUR Reviewed date:03/11/2025 11:47:24 AM Interpretation: Performing Lab: Notes/Report: Note See Note [facility], a member of [employer] Patient Name: MARÍA PHILLIPS Date of : 1965 Reason for Exam: pain Exam Date: 03/11/2025 [id number] EST Report Status: Final Ordering Provider: DAVID [...] Signed Date: 025 11:03 ET Workstation ID: [id number] Transcribed By: Self Edit Transcribed Date: 03/11/2025 [...] Notes/Report: Vit D, 25-Hydroxy 30.1 30.0-80.0 ng/mL CBC WITH AUTO DIFFERENTIAL Reviewed date:03/05/2025 07:32:33 [...] K/mcL Immature Granulocytes Absolute 0.03 0.00-0.03 K/mcL US HEAD NECK SOFT TISSUE Reviewed date:02/10/2025 05:04:59 PM Interpretation: Performing Lab: Notes/Report: Note See Note [facility], a member of [employer] Patient Name: MARÍA PHILLIPS Date of : 1965 Reason for Exam: ENLARGED LYMPHNODE Exam Date: 02/08/2025 [id number] EST Report Status: Final Ordering Provider: CHINO [...] Signed Date: 025 15:55 ET Workstation ID: [id number] Transcribed By: Self Edit Transcribed Date: 02/08/2025 15:52 ET MG MAMMO DIGITAL SCREENING W HERACLIO BILAT Reviewed date:02/06/2025 11:57:46 AM Interpretation: Performing Lab: Notes/Report: Note See Note [facility], a member of [employer] Patient Name: MARÍA PHILLIPS Date of : 1965 Reason for Exam: SCREENING Exam Date: 02/05/2025 [id number] EST Report Status: Final Ordering Provider: IKER [...] year. Mammo Location: [facility], [address] [place] [address], [address], . -------- FINAL REPOR T -------- Dictated By: Stefani Zamora Dictated Date: 02/06/2025 09:43 ET Assigned Physician: Stefani Zamora Reviewed and Electronically Signed By: Stefani Zamora Signed Date: 025 09:45 ET Workstation ID: [id number] Transcribed By: Self Edit Transcribed Date: 02/06/2025 09:43 ET XR FLUORO UP TO 1 HOUR Reviewed date:02/04/2025 05:11:16 PM Interpretation: Performing Lab: Notes/Report: Note See Note [facility], a member of [employer] Patient Name: MARÍA PHILLIPS Date of : 1965 Reason for Exam: pain Exam Date: 02/04/2025 [id number] EST Report Status: Final Ordering Provider: DAVID [...] Signed Date: 025 12:53 ET Workstation ID: [id number] Transcribed By: Self Edit Transcribed Date: 02/04/2025 12:51 ET URINALYSIS WITH REFLEX MICRO SCOPIC AND CULTURE Reviewed date:01/21/2025 02:02:02 PM Interpretation: Performing Lab: Notes/Report: Specific [place] Urine 1.034 1.003-1.030 pH, Urine 6.5 5.0-8.0 pH Leukocytes, Urine Negative Negative Nitrite, Urine Negative Negative Protein, Urine Trace <=Trace mg/dL Glucose, Urine Negative Negative mg/dL Ketones, Urine Negative Negative mg/dL Urobilinogen, Urine 0.2 0.2-1.0 mg/dL Bilirubin, Urine Negative Negative Blood, Urine Negative Negative Anti-La (SS-B) Ab (RDL)-5203 20 Reviewed date:02/11/2025 07:42:47 AM Interpretation: Performing Lab:[facility], [address], [place], Phone - [phone], [facility] Notes/Report: Test(s) 008029-Wcfw-Uz-1 Ab (RDL) was developed and its performance characteristics determined by [facility]. It has not been cleared or approved by the Food and Drug Administration. Anti-La (SS-B) Ab (RDL) <20 <20 Units Negative: <20 Weak Positive: 20-39 Moderate Positive: 40-80 Strong Positive: >80 Anti-Sm Ab (RDL)-719162 Reviewed date:02/11/2025 07:42:50 AM Interpretation: Performing Lab:[facility] [place], [address] [place] [address], Phone - [phone], [facility] Notes/Report: Test(s) 859576-Hftm-Fz-2 Ab (RDL) was developed and its performance characteristics determined by [facility]. It has not been cleared or approved by the Food and Drug Administration. Anti-Sm Ab (RDL) <20 <20 Units Negative: <20 Weak Positive: 20-39 Moderate Positive: 40-80 Strong Positive: >80 Anti-Ro (SS-A) Ab (RDL)-5200 10 Reviewed date:02/11/2025 07:42:55 AM Interpretation: Performing Lab:[facility] [place], [address] [place] [address], [place], Phone - [phone], [facility] Notes/Report: Test(s) 188894-Oujw-Mn-1 Ab (RDL) was developed and its performance characteristics determined by [facility]. It has not been cleared or approved by the Food and Drug Administration. Anti-Ro (SS-A) Ab (RDL) <20 <20 Units Negative: <20 Weak Positive: 20-39 Moderate Positive: 40-80 Strong Positive: >80 Anti-Mi-2 Ab (RDL)-126351 Reviewed date:02/11/2025 07:42:59 AM Interpretation: Performing Lab:[facility] [place], [address] [place] [address], [place], Phone - [phone], [facility] Notes/Report: Test(s) 558678-Mmaz-Mo-8 Ab (RDL) was developed and its performance characteristics determined by [facility]. It has not been cleared or approved by the Food and Drug Administration. Anti-Mi-2 Ab (RDL) Negative Negative Comp. Metabolic Panel (14)-3 98690 Reviewed date:02/11/2025 07:43:25 AM Interpretation: Performing Lab:[facility], Phone - [phone], Director - [facility] Notes/Report: Test(s) 837427-Eucm-Tr-9 Ab (RDL) was developed and its performance [...] 0-40 IU/L ALT (SGPT) 13 0-32 IU/L Rsrc-Mt-4-650221 Reviewed date:02/11/2025 07:43:02 AM Interpretation: Performing Lab:[facility] [address], Phone - [phone], Director - alton Notes/Report: Test(s) 143522-Faxl-Oo-2 Ab (RDL) was developed and its performance characteristics determined by [facility]. It has not been cleared or approved by the Food and Drug Administration. Anti-Lakisha-1 <0.2 0.0-0.9 AI Creatine Kinase (CK), MB-120 816 Reviewed date:02/11/2025 07:43:06 AM Interpretation: Performing Lab:[facility] [address], Phone - [phone], Director - Elsa Notes/Report: Test(s) 592832-Fbmm-Og-7 Ab (RDL) was developed and its performance characteristics determined by [facility]. It has not been cleared or approved by the Food and Drug Administration. Creatine Kinase (CK), MB 1.4 0.0-5.3 ng/mL C-Reactive Protein, Cardiac- 247274 Reviewed date:02/11/2025 07:43:09 AM Interpretation: Performing Lab:[facility] [address], Phone - [phone], Director [facility] Notes/Report: Test(s) 227393-Mhkj-Sd-4 Ab (RDL) was developed and its performance characteristics determined by [facility]. It has not been cleared or approved by the Food and Drug Administration. C-Reactive Protein, Cardiac 1.34 0.00-3.00 mg/L Relative Risk for Future Cardiovascular Event Low <1.00 Average 1.00 - 3.00 High >3.00 Anti-dsDNA Antibodies-860064 Reviewed date:02/11/2025 07:43:13 AM Interpretation: Performing Lab:[facility] [address], Phone - [phone], Director - [facility] Notes/Report: Test(s) 165525-Uehk-Ea-6 Ab (RDL) was developed and its performance characteristics determined by [facility]. It has not been cleared or approved by the Food and Drug Administration. Anti-DNA (DS) Ab Qn 1 0-9 IU/mL Negative <5 Equivocal 5 - 9 Positive >9 Complement C3, Serum-348546 Reviewed date:02/11/2025 07:43:16 AM Interpretation: Performing Lab:[facility] [address], Phone - [phone], Director - [facility] Notes/Report: Test(s) 360836-Qodf-Zb-1 Ab (RDL) was developed and its performance characteristics determined by [facility]. It has not been cleared or approved by the Food and Drug Administration. Complement C3, Serum 119 82-167 mg/dL Sedimentation Rate-[facility] n-295965 Reviewed date:02/11/2025 07:42:43 AM Interpretation: Performing Lab:[facility] [address], Phone - [phone], Director [facility] Notes/Report: Test(s) 818220-Anbf-Kz-9 Ab (RDL) was developed and its performance characteristics determined by [facility]. It has not been cleared or approved by the Food and Drug Administration. Sedimentation Rate-Westergren 14 0-40 mm/hr Maryan Barnett CMP14 Default A hand-written panel/profile was received from your office. In accordance with the [facility] Ambiguous Test Code Policy dated May 2003, we have completed your order by using the closest currently or formerly recognized AMA panel. We have assigned Comprehensive Metabolic Panel (14), Test Code #568633 to this request. If this is not the testing you wished to receive on this specimen, please contact the [facility] Client Inquiry/Technical Services Department to clarify the test order. We appreciate your business. CBC With Differential/Platel et-020573 Reviewed date:02/11/2025 07:43:32 AM Interpretation: Performing Lab:[facility], [address] [place] [address], [place], Phone - [phone], Director - Elsa Notes/Report: Test(s) 170401-Obvd-Wc-4 Ab (RDL) was developed and its performance characteristics determined by [facility]. It has not been cleared or approved [...] Grans (Abs) 0.0 0.0-0.1 x10E3/uL Complement C4, Serum-494047 Reviewed date:02/11/2025 07:43:19 AM Interpretation: Performing Lab:[facility], [address], [place], Phone - [phone], Director - Elsa Notes/Report: Test(s) 024781-Cppc-Tw-7 Ab (RDL) was developed and its performance characteristics determined by [facility]. It has not been cleared or approved by the Food and Drug Administration. Complement C4, Serum 18 12-38 mg/dL XR ESOPHAGRAM Reviewed date:01/01/2025 09:27:26 AM Interpretation: Performing Lab: Notes/Report: Note See Note [facility], a member of [facility] Patient Name: MARÍA PHILLIPS Date of : 1965 Reason for Exam: DYSPHAGIA Exam Date: 12/26/2024 [id number] EST Report Status: Final Ordering Provider: BARBARA MORRISSEY PCP: IKER ROBLERO FINDINGS: Double contrast esophagram performed. COMPARISON: Esophagr am March 04, 2022 HISTORY: Patient is a 59-year-old female with history of globus sensation. Epigastric pain. [place] radiographs: 1 view chest radiograph demonstrates cardiac [...] Signed Date: 025 08:28 ET Workstation ID: [id number] Transcribed By: Self Edit Transcribed Date: 12/26/2024 13:36 ET Resident/PA/HIGHWAY ENGINEERING TEACHER: Lidia Godinez CREATINE KINASE Reviewed date:03/24/2025 07:44:57 AM Interpretation: Performing Lab: Notes/Report: Total CK 87 22-269 unit/L THYROID STIMULATING HORMONE WITH REFLEX TO FREE T4 AND FREE T3 Reviewed date:07/24/2025 02:40:06 PM Interpretation: Performing Lab: Notes/Report: TSH 1.20 0.40-4.00 mcIU/mL TRIIODOTHYRONINE FREE Reviewed date:07/24/2025 02:40:06 PM Interpretation: Performing Lab: Notes/Report: T3, Free 316 230-420 pcg/dL THYROXINE FREE Reviewed date:07/24/2025 02:40:06 PM Interpretation: Performing Lab: Notes/Report: Free T4 1.16 0.70-1.80 ng/dL TISSUE EXAM Reviewed date:07/20/2025 07:42:46 PM Interpretation: [...] is preferred specimen for evaluating avascular necrosis. CT SINUSES WO CONTRAST Reviewed date:01/24/2025 12:18:38 PM Interpretation: Performing Lab: Notes/Report: Note See Note [facility], a member of [facility] Patient Name: MARÍA PHILLIPS Date of : 1965 Reason for Exam: deviated septum,sinonasal polyp Exam Date: 01/24/2025 [id number] EST Report Status: Final Ordering Provider: EDMUND [...] Signed Date: 025 08:42 ET Workstation ID: [id number] Transcribed By: Self Edit Transcribed Date: 01/24/2025 08:15 ET XR KNEE 4+ VIEWS BILAT Reviewed date:01/27/2025 08:06:07 AM Interpretation: Performing Lab: Notes/Report: Note See Note [facility], a member of [facility] Patient Name: MARÍA PHILLIPS Date of : 1965 Reason for Exam: ilateral knee pain Exam Date: 01/22/2025 [id number] EST Report Status: Final Ordering Provider: CELIA [...] Interpretation: Performing Lab: Notes/Report: Note See Note [facility], a member of [employer] Patient Name: MARÍA PHILLIPS Date of : 1965 Reason for Exam: cervicalgia Exam Date: 01/24/2025 [id number] EST Report Status: Final Ordering Provider: CHINO YBARRA PCP: IKER ROBLERO [facility]: Pain. Symptoms [...] Signed Date: 025 08:00 ET Workstation ID: [id number] Transcribed By: Self Edit Transcribed Date: 01/24/2025 07:55 ET Reason For Referral Reason [facility] Diagnosis 1 Shoulder pain, unspe cified chronicity, unspecified laterality (M25.519) Referral Organization [facility] [address] Referring Provider First Name IKER Referring Provider Last Name BOURBONNAIS Referring Provider Speciality Preventive Medicine Referred Provider Specialty Orthopedic [facility] General Notes Letitia Cox 025 10:47:57 AM > Referral faxed over to [facility] for Bilateral shoulder pain P. [phone] Referral Priority Routine Reason Sleep Medicine Serv[facility]; sleep study; loud snoring Diagnosis 1 Loud snoring (R06.83 ) Referral Organization [facility] [address] Referring Provider First Name IKER Referring Provider Last Name BOURBONNAIS Referring Provider Speciality Preventive Medicine Referred Provider Specialty Sleep Medici ne General Notes [address] [place] (p) [phone], (f) [phone] Clinical Notes Maryann Cox 02:10:39 PM > [...] First Name IKER Referring Provider Last Name BOURBONNAIS Referring Provider Speciality Preventive Medicine Referred Provider Specialty Pain Medicin e Clinical Notes Zoila Narayanan 04/25 09:57:57 AM > Family Physiatry, Address: [address] [place] [address] [phone], , Fax number: , KennyJulien michaelfani 06/17/2025 02:17:36 PM > The patient was scheduled for 06/05 but she no showed and has not rescheduled yet Referral Priority Routine Reason [facility]; easy bruising Diagnosis 1 Easy bruising (R23.3 ) Referral Organization [facility] [address] Referring Provider First Name IKER Referring Provider Last Name BOURBONNAIS [facility] Referred Provider Specialty Dermatology General Notes [address] [place]. 106, (p) [phone], (f) [phone] Clinical Notes Caren Narayanan 08:43:03 AM > referral faxed with notes Referral Priority Routine Reason Dr. Hoffman Diagnosis 1 Pulmonary nodule (R9 1.1) Diagnosis 2 Centrilobular emphys christine (J43.2) Referral Organization [facility] [address] Referring Provider First Name IKER Referring Provider Last Name BOURBONNAIS Referring Provider Speciality Preventive Medicine Referred Provider Specialty Pulmonology General Notes XAVIER VILLANUEVA 06/09 08:34:07 AM > Referral faxed, Dr Hoffman - Pulmonology and Sleep Medicine, [address] [place] [address], , Clinical Notes Maryann Cox 10/2025 02:17:04 PM > The patient was scheduled for 06/05 but she no showed and has not rescheduled yet Referral Priority Routine Reason [facility] Diagnosis 1 Chronic pain syndrom e (G89.4) Diagnosis 2 Cervical pain (M54.2 ) Referral Organization [facility] [address] Referring Provider First Name IKER Referring Provider Last Name BOURBONNAIS Referring Provider Speciality Preventive Medicine Referred Provider Specialty Orthopedic S urgery General Notes VILLANUEVA, XAVIER 06/26 08:13:11 AM > Referral has been faxed, [facility], [address], [place] [address], , Clinical Notes Maryann Cox 02:25:30 PM > I called the office, and they informed me they had reached out to the patient multiple times with no response. I then spoke with the patient, who stated she was not aware a referral had been sent. She said she will call the office back Referral Priority Stat Reason Spine Surgery - [facility] Diagnosis 1 Lumbar back pain (M5 4.50) Diagnosis 2 Chronic lumbar radic ulopathy (M54.16) Referral Organization [facility] [address] Referring Provider First Name IKER Referring Provider Last Name BOURBONNAIS Referring Provider Speciality Preventive Medicine Referred Provider Specialty Spinal Cord Injury Medicine General Notes VILLANUEVAXAVIER 07/08 03:54:08 PM > referral has been initiated & faxed, [facility], [address], [address], [place], , Most recent MRI was done at [facility] 01/14/25 Clinical Notes Maryann Cox 01/2025 02:17:15 PM > I called [facility], and they are requesting an [...] Status W/U Status Risk Notes Problem Hyperkalemia (79795259) Hyperkalemia (E87.5) Active confirmed Problem Chronic pain syndrome (323111943) Chronic pain syndrome (G89.4) Active confirmed Problem Centrilobular emphysema (79571925) Centrilobular emphysema (J43.2) Active confirmed Problem Pulmonary nodule (897630914) Pulmonary nodule (R91.1) Active confirmed Problem Breathing painful (57537167) Rib pain on right side (R07.81) Active confirmed Problem Tremor (06498726) Tremor (R25.1) Active confirm ed Problem Chronic fatigue syndrome (93414864) Chronic fatigue (R53.82) Active confirmed Problem Paresthesia (finding) (51576353) Paresthesias (R20.2) Active confirmed Problem Lumbar radiculopathy (740144336) Chronic lumbar radiculopathy (M54.16) Active confirmed Problem Cervical pain (31976511) Cervical pain (M54.2) Active confirmed Problem Mixed anxiety and depressive disorder (492910703) Depression with anxiety (F41.8) Active confirmed Problem 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 Problem Inactive tuberculosis (finding) (87679011) History of latent tuberculosis (Z86.15) Active confirmed Problem Rheumatoid arthritis (95264863) Rheumatoid arthritis involving multiple sites, unspecified whether rheumatoid factor present (M06.9) Active confirmed Problem Rheumatoid arthritis (82775280) Rheumatoid arthritis involving multiple sites with positive rheumatoid factor (M05.79) Active confirmed Problem Lymphadenopathy (95773243) Lymphadenopathy, axillary (R59.0) Active confirmed Problem Cervical spondylosis (940236457) Cervical spondylosis (M47.812) Active confirmed Problem General weakness (09072773) Generalized weakness (R53.1) Active confirmed Problem 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 Vital Signs Heart Rate 92 /min 06/18/2025 Blood pressure diastolic 84 mm Hg 06/18/2025 Oximetry 97 % 06/18/2025 Height 61 in 06/18/2025 Blood pressure systolic 130 mm Hg 06/18/2025 Weight 162.2 lbs 06/18/2025 BMI 30.64 kg/m2 06/18/2025 Encounters Encounter Location Date Provider Diagnosis [facility] [address] [address] 10/28/2024 IKER LEDESMAHAM Rheumatoid arthritis involving multiple sites, unspecified whether rheumatoid factor present M06.9 ; Tremor R25.1 ; Slipped rib syndrome M94.0 ; History of latent tuberculosis Z86.15 ; Depression with anxiety F41.8 and Rock's disease E06.3 [facility] [address] [address] 11/18/2024 IKER LEDESMAHAM Tremor R25.1 ; Cervi veronica spondylosis M47.812 ; Rock's disease E06.3 ; Pain in right arm M79.601 ; Pain in left arm M79.602 ; History of recent fall Z91.81 ; Rheumatoid arthritis involving multiple sites with positive rheumatoid factor M05.79 ; Slipped rib syndrome M94.0 and Depression with anxiety F41.8 [facility] [address] [address] 01/22/2025 CHINO BIRKS Neck pain on right s angela M54.2 ; Rheumatoid arthritis involving multiple sites with positive rheumatoid factor M05.79 ; Slipped rib syndrome M94.0 ; Rock's disease E06.3 and Depression with anxiety F41.8 [facility] [address] [address] 02/03/2025 CHINO BIRKS Lymphadenopathy, axillary R59.0 ; Rheumatoid arthritis involving multiple sites, unspecified whether rheumatoid factor present M06.9 ; Rock's disease E06.3 ; Slipped rib syndrome M94.0 ; Anxiety, generalized F41.1 and Tendon calcification M65.80 [facility] [address] [address] 03/05/2025 IKER ANNIKA Rib pain on right si de R07.81 ; Annual physical exam Z00.00 ; Chronic fatigue R53.82 ; Hyperkalemia E87.5 ; Slipped rib syndrome M94.0 ; Depression with anxiety F41.8 and Rheumatoid arthritis involving multiple sites with positive rheumatoid factor M05.79 [facility] [address] [address] 03/21/2025 IKER ROBLERO Heart palpitations R00.2 ; Weakness R53.1 and Dyspnea on exertion R06.09 [facility] [address] [address] 04/23/2025 IKER ROBLERO Depression with anxi ety F41.8 ; Heavy alcohol use F10.90 ; Chronic pain syndrome G89.4 ; Slipped rib syndrome M94.0 ; Rheumatoid arthritis involving multiple sites with positive rheumatoid factor M05.79 ; Pulmonary nodule R91.1 ; History of latent tuberculosis Z86.15 and Loud snoring R06.83 [facility] [address] 05/05/2025 IKER ROBLERO Spontaneous ecchymos es R23.3 ; Skin tear of left upper extremity S41.112A ; Irregular bowel habits R19.8 ; Depression with anxiety F41.8 ; Chronic pain syndrome G89.4 and Rheumatoid arthritis involving multiple sites with positive rheumatoid factor M05.79 [facility] [address] [address] 06/18/2025 IKER BOURBONNAIS Chronic pain syndrom e G89.4 ; Cervical pain M54.2 and Recurrent low back pain M54.50 [facility] [address] [address] 10/29/2024 [facility] [address] [address] 11/04/2024 [facility] [address] [address] 11/07/2024 [facility] [address] [facility] [address] [address] 11/19/2024 IKER BOURBONNAIS [facility] [address] [facility] [address] [address] 12/03/2024 IKER BOURBONNAIS [facility] [address] [address] 12/13/2024 [facility] [address] [address] 12/13/2024 IKER ROBLERO Generalized weakness R53.1 and Paresthesias R20.2 [facility] [address] [place] [address] 12/16/2024 IKER BOURBONNAIS [facility] [address] [place] [address] 12/26/2024 IKER BOURBONNAIS [facility] [address] [place] [address] 12/31/2024 IKER BOURBONNAIS [facility] [address] [place] [address] 01/02/2025 IKER BOURBONNAIS [facility] [address] [place] [address] 01/07/2025 IKER BOURBONNAIS [facility] [address] [place] [address] 01/21/2025 IKER BOURBONNAIS [facility] [address] [place] [address] 01/24/2025 IKER BOURBONNAIS [facility] [address] [place] [address] 02/03/2025 IKER BOURBONNAIS [facility] [address] [place] [address] 02/03/2025 IKER BOURBONNAIS [facility] [address] [place] [address] 02/10/2025 IKER BOURBONNAIS [facility] [address] [place] [address] 03/05/2025 IKER LEDESMAHAM Chronic fatigue R53. 82 ; Elevated lipids E78.5 ; Anemia due to vitamin B12 deficiency, unspecified B12 deficiency type D51.9 and Vitamin D deficiency E55.9 [facility] [address] [place] [address] 03/05/2025 IKER BOURBONNAIS [facility] [address] [place] [address] 03/05/2025 IKER BOURB[place]NAIS [facility] [address] [place] [address] 03/05/2025 IKER BOURBONNAIS [facility] [address] [place] [address] 03/21/2025 IKER BOURB[place]NAIS [facility] [address] [place] [address] 03/24/2025 IKER BOURBONNAIS [facility] [address] [place] [address] 04/22/2025 IKER BOURBONNAIS [facility] [address] [place] [address] 04/25/2025 IKER BOURBONNAIS [facility] [address] [place] [address] 05/01/2025 IKER BOURBONNAIS [facility] [address] [place] [address] 05/05/2025 IKER BOURBONNAIS [facility] [address] [place] [address] 05/06/2025 IKER BOURB[place]NAIS [facility] [address] [place] [address] 05/13/2025 IKER BOURBONNAIS [facility] [address] [place] [address] 05/13/2025 IKER BOURBONNAIS [facility] [address] [place] [address] 06/03/2025 IKER BOURBONNAIS [facility] [address] [place] [address] 06/18/2025 IKER BOURBONNAIS [facility] [address] [place] [address] 06/19/2025 IKER BOURBONNAIS Cervical pain M54.2 ; Cervical spondylosis M47.812 and Chronic pain syndrome G89.[address] [facility] [address] [place] [address] 06/25/2025 IKER BOURBONNAIS [facility] [address] [place] [address] 07/08/2025 IKER BOURB[place]NAIS [facility] [address] [place] [address] 07/08/2025 IKER BOURB[place]NAIS [facility] [address] [place] [address] 07/09/2025 IKER BOURB[place]NAIS [facility] [address] [place] [address] 07/15/2025 IKER LEDESMAHAM Rock's disease E06.3 [facility] [address] [place] [address] 08/14/2025 IKER BOURBONNAIS [facility] [address] [place] [address] 12/09/2024 IKER BOURBONNAIS [facility] [address] [place] [address] 12/13/2024 IKER BOURBONNAIS [facility] [address] [place] [address] 12/14/2024 IKER BOURBONNAIS [facility] [address] [place] [address] 12/14/2024 IKER BOURBONNAIS [facility] [address] [place] [address] 12/15/2024 IKER BOURBONNAIS [facility] [address] [place] [address] 12/18/2024 IKER BOURBONNAIS [facility] [address] [place] [address] 01/01/2025 IKER BOURBONNAIS [facility] [address] [place] [address] 01/21/2025 IKER BOURBONNAIS [facility] [address] [place] [address] 01/27/2025 IKER BOURBONNAIS Breast cancer screen ing by mammogram Z12.31 [facility] [address] [place] [address] 03/21/2025 IKER BOURBONNAIS [facility] [address] [place] [address] 04/30/2025 IKER BOURBONNAIS [facility] [address] [place] [address] 05/01/2025 IKER BOURBONNAIS [facility] [address] [place] [address] 05/01/2025 IKER BOURBONNAIS [facility] [address] [place] [address] 06/06/2025 IKER BOURBONNAIS [facility] [address] [place] [address] 06/09/2025 IKER BOURBONNAIS [facility] [address] [address] 06/14/2025 [facility] [address] [address] 06/20/2025 IKER BOURBONNAIS [facility] [address] [facility] [address] [place] [address] 06/23/2025 [facility] [address] [address] 06/30/2025 IKER BOURBONNAIS [facility] [address] [address] 07/12/2025 [facility] Adult general medica l exam Z00.00 and Screening for thyroid disorder Z13.29 [facility] [address] [address] 07/15/2025 IKER BOURBONNAIS [facility] [address] [address] 07/16/2025 [facility] Assessments Encounter Date Diagnosis (ICD Code) [...] Patient reports history of RA. Follows with bellperson Dr. Clark out of [place]. Has been treated previously with Humira, Enbrel, [...] was diagnosed by Dr. Dubon out of [place], [place]. Taking methocarbamol 750 mg 3 times [...] reviewed. Dictation completed with the use of [employer] voice recognition software, prone to medical misidentifications [...] Patient reports history of RA. Follows with bellperson Dr. Clark out of [place]. Has been treated previously with Humira, Enbrel, [...] was diagnosed by Dr. Dubon out of [place], [place]. Taking methocarbamol 750 mg 3 times [...] reviewed. Dictation completed with the use of [employer] voice recognition software, prone to medical misidentifications [...] for 11/20/2024. #Recent fall: Patient seen at [facility] ED 11/02/2024 s/p fall at work. [...] diffuse joint pain and fatigue. Follows with bellperson Dr. Clark out of [place], records requested and not yet available for my review. 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 States this was diagnosed by Dr. Dubon out of [place], [place]. Taking methocarbamol 750 mg 3 times [...] reviewed. Dictation completed with the use of [employer] voice recognition software, prone to medical misidentifications [...] for 11/20/2024. #Recent fall: Patient seen at [facility] ED 11/02/2024 s/p fall at work. [...] diffuse joint pain and fatigue. Follows with bellperson Dr. Clark out of [place], records requested and not yet available for my review. 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 States this was diagnosed by Dr. Dubon out of [place], [place]. Taking methocarbamol 750 mg 3 times [...] reviewed. Dictation completed with the use of [employer] voice recognition software, prone to medical misidentifications [...] was diagnosed by Dr. Dubon out of [place], [place]. Taking methocarbamol 750 mg 3 times [...] Dictation was accomplished with the use of [employer] voice recognition software, which is prone to [...] was diagnosed by Dr. Dubon out of [place], [place]. Taking methocarbamol 750 mg 3 times [...] Dictation was accomplished with the use of [employer] voice recognition software, which is prone to [...] was diagnosed by Dr. Dubon out of [place]. Taking methocarbamol 750 mg 3 times [...] Dictation was accomplished with the use of [employer] voice recognition software, which is prone to [...] was diagnosed by Dr. Dubon out of [place]. Taking methocarbamol 750 mg 3 times [...] Dictation was accomplished with the use of [employer] voice recognition software, which is prone to [...] rib syndrome: Follows with Dr. Dubon with [facility]. Underwent repair 12/17/2024. #Ventral hernia: Surgical [...] arthritis: + Rheumatoid factor (152). Follows with bellperson Dr. Joshua Kaplan out of [place]. Follow-up labs including CAMILO, ESR/CRP, and comprehensive [...] Follows with psychiatric provider Clarice Lara with [facility]. Taking clonazepam 0.5 mg once daily [...] dysfunction. #Hyperkalemia: Patient reports she was at [facility] ED recently at which time her potassium [...] reviewed. Dictation completed with the use of [employer] voice recognition software, prone to medical misidentifications [...] rib syndrome: Follows with Dr. Dubon with [facility]. Underwent repair 12/17/2024. #Ventral hernia: Surgical [...] arthritis: + Rheumatoid factor (152). Follows with bellperson Dr. Joshua Kaplan out of [place]. Follow-up labs including CAMILO, ESR/CRP, and comprehensive [...] Follows with psychiatric provider Clarice Lara with [facility]. Taking clonazepam 0.5 mg once daily [...] dysfunction. #Hyperkalemia: Patient reports she was at [facility] ED recently at which time her potassium [...] reviewed. Dictation completed with the use of [employer] voice recognition software, prone to medical misidentifications [...] reviewed. Dictation completed with the use of [employer] voice recognition software, prone to medical misidentifications [...] reviewed. Dictation completed with the use of [employer] voice recognition software, prone to medical misidentifications [...] ER follow-up hospital follow-up. María presented to [facility] ED 04/19/2025 with chief complaint of [...] taking any pain medication. Previously followed with roller painter Dr. Trivedi who provided steroid injections. [...] with added opioid use. WIll refer to roller painter with goal of establishing safe pain management regimen. #RA: Follows with Joshua Kaplan MD out of [place]. Discussed possibility of chronic pain being related [...] reviewed. Dictation completed with the use of [employer] voice recognition software, prone to medical misidentifications [...] ER follow-up hospital follow-up. María presented to [facility] ED 04/19/2025 with chief complaint of [...] taking any pain medication. Previously followed with roller painter Dr. Trivedi who provided steroid injections. [...] with added opioid use. WIll refer to roller painter with goal of establishing safe pain management regimen. #RA: Follows with Joshua Kaplan MD out of [place]. Discussed possibility of chronic pain being related [...] reviewed. Dictation completed with the use of [employer] voice recognition software, prone to medical misidentifications [...] Patient requesting urgent colonoscopy per recommendation of [facility] surgeon Jewel Dubon. On review of [...] gabapentin TID without symptom improvement. Follows with roller painter Dr. Trivedi. Historically the patient has [...] reviewed. Dictation completed with the use of [employer] voice recognition software, prone to medical misidentifications [...] Patient requesting urgent colonoscopy per recommendation of [facility] surgeon Jewel Dubon. On review of [...] gabapentin TID without symptom improvement. Follows with roller painter Dr. Trivedi. Historically the patient has [...] reviewed. Dictation completed with the use of [employer] voice recognition software, prone to medical misidentifications [...] TID without significant symptom improvement. Follows with roller painter Dr. Trivedi, orthopedic provider Nichelle Carrillo [...] reviewed. Dictation completed with the use of [employer] voice recognition software, prone to medical misidentifications [...] TID without significant symptom improvement. Follows with roller painter Dr. Trivedi, orthopedic provider Nichelle Carrillo [...] reviewed. Dictation completed with the use of [employer] voice recognition software, prone to medical misidentifications [...] TID without significant symptom improvement. Follows with roller painter Dr. Trivedi, orthopedic provider Nichelle Carrillo [...] reviewed. Dictation completed with the use of [employer] voice recognition software, prone to medical misidentifications [...] Patient requesting urgent colonoscopy per recommendation of [facility] surgeon Jewel Dubon. On review of [...] gabapentin TID without symptom improvement. Follows with roller painter Dr. Trivedi. Historically the patient has [...] reviewed. Dictation completed with the use of [employer] voice recognition software, prone to medical misidentifications [...] reviewed. Dictation completed with the use of [employer] voice recognition software, prone to medical misidentifications [...] ER follow-up hospital follow-up. María presented to [facility] ED 04/19/2025 with chief complaint of [...] taking any pain medication. Previously followed with roller painter Dr. Trivedi who provided steroid injections. [...] with added opioid use. WIll refer to roller painter with goal of establishing safe pain management regimen. #RA: Follows with Joshua Kaplan MD out of [place]. Discussed possibility of chronic pain being related [...] reviewed. Dictation completed with the use of [employer] voice recognition software, prone to medical misidentifications [...] rib syndrome: Follows with Dr. Dubon with [facility]. Underwent repair 12/17/2024. #Ventral hernia: Surgical [...] arthritis: + Rheumatoid factor (152). Follows with bellperson Dr. Joshua Kaplan out of [place]. Follow-up labs including CAMILO, ESR/CRP, and comprehensive [...] Follows with psychiatric provider Clarice Lara with [facility]. Taking clonazepam 0.5 mg once daily [...] dysfunction. #Hyperkalemia: Patient reports she was at [facility] ED recently at which time her potassium [...] was diagnosed by Dr. Dubon out of [place], [place]. Taking methocarbamol 750 mg 3 times [...] Dictation was accomplished with the use of [employer] voice recognition software, which is prone to [...] was diagnosed by Dr. Dubon out of [place]. Taking methocarbamol 750 mg 3 times [...] Dictation was accomplished with the use of [employer] voice recognition software, which is prone to [...] for 11/20/2024. #Recent fall: Patient seen at [facility] ED 11/02/2024 s/p fall at work. [...] diffuse joint pain and fatigue. Follows with bellperson Dr. Clark out of [place], records requested and not yet available for my review. 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 States this was diagnosed by Dr. Dubon out of [place], [place]. Taking methocarbamol 750 mg 3 times [...] reviewed. Dictation completed with the use of [employer] voice recognition software, prone to medical misidentifications [...] Patient reports history of RA. Follows with bellperson Dr. Clark out of [place]. Has been treated previously with Humira, Enbrel, [...] was diagnosed by Dr. Dubon out of [place], [place]. Taking methocarbamol 750 mg 3 times [...] reviewed. Dictation completed with the use of [employer] voice recognition software, prone to medical misidentifications [...] for 11/20/2024. #Recent fall: Patient seen at [facility] ED 11/02/2024 s/p fall at work. [...] diffuse joint pain and fatigue. Follows with bellperson Dr. Clark out of [place], records requested and not yet available for my review. 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 States this was diagnosed by Dr. Dubon out of [place], [place]. Taking methocarbamol 750 mg 3 times [...] reviewed. Dictation completed with the use of [employer] voice recognition software, prone to medical misidentifications [...] Patient reports history of RA. Follows with bellperson Dr. Clark out of [place]. Has been treated previously with Humira, Enbrel, [...] was diagnosed by Dr. Dubon out of [place], [place]. Taking methocarbamol 750 mg 3 times [...] reviewed. Dictation completed with the use of [employer] voice recognition software, prone to medical misidentifications [...] was diagnosed by Dr. Dubon out of [place], [place]. Taking methocarbamol 750 mg 3 times [...] Dictation was accomplished with the use of [employer] voice recognition software, which is prone to [...] collection. Patient reports recent blood work through [facility] which we will request, otherwise last TSH [...] was diagnosed by Dr. Dubon out of [place], [place]. Taking methocarbamol 750 mg 3 times [...] Dictation was accomplished with the use of [employer] voice recognition software, which is prone to [...] rib syndrome: Follows with Dr. Dubon with [facility]. Underwent repair 12/17/2024. #Ventral hernia: Surgical [...] arthritis: + Rheumatoid factor (152). Follows with bellperson Dr. Joshua Kaplan out of [place]. Follow-up labs including CAMILO, ESR/CRP, and comprehensive [...] Follows with psychiatric provider Clarice Lara with [facility]. Taking clonazepam 0.5 mg once daily [...] dysfunction. #Hyperkalemia: Patient reports she was at [facility] ED recently at which time her potassium [...] reviewed. Dictation completed with the use of [employer] voice recognition software, prone to medical misidentifications [...] Patient requesting urgent colonoscopy per recommendation of [facility] surgeon Jewel Dubon. On review of [...] gabapentin TID without symptom improvement. Follows with roller painter Dr. Trivedi. Historically the patient has [...] reviewed. Dictation completed with the use of [employer] voice recognition software, prone to medical misidentifications [...] ER follow-up hospital follow-up. María presented to [facility] ED 04/19/2025 with chief complaint of [...] taking any pain medication. Previously followed with roller painter Dr. Trivedi who provided steroid injections. [...] with added opioid use. WIll refer to roller painter with goal of establishing safe pain management regimen. #RA: Follows with Joshua Kaplan MD out of [place]. Discussed possibility of chronic pain being related [...] reviewed. Dictation completed with the use of [employer] voice recognition software, prone to medical misidentifications [...] Patient requesting urgent colonoscopy per recommendation of [facility] surgeon Jewel Dubon. On review of [...] gabapentin TID without symptom improvement. Follows with roller painter Dr. Trivedi. Historically the patient has [...] reviewed. Dictation completed with the use of [employer] voice recognition software, prone to medical misidentifications [...] ER follow-up hospital follow-up. María presented to [facility] ED 04/19/2025 with chief complaint of [...] taking any pain medication. Previously followed with roller painter Dr. Trivedi who provided steroid injections. [...] with added opioid use. WIll refer to roller painter with goal of establishing safe pain management regimen. #RA: Follows with Joshua Kaplan MD out of [place]. Discussed possibility of chronic pain being related [...] reviewed. Dictation completed with the use of [employer] voice recognition software, prone to medical misidentifications [...] rib syndrome: Follows with Dr. Dubon with [facility]. Underwent repair 12/17/2024. #Ventral hernia: Surgical [...] arthritis: + Rheumatoid factor (152). Follows with bellperson Dr. Joshua Kaplan out of [place]. Follow-up labs including CAMILO, ESR/CRP, and comprehensive [...] Follows with psychiatric provider Clarice Lara with [facility]. Taking clonazepam 0.5 mg once daily [...] dysfunction. #Hyperkalemia: Patient reports she was at [facility] ED recently at which time her potassium [...] reviewed. Dictation completed with the use of [employer] voice recognition software, prone to medical misidentifications [...] was diagnosed by Dr. Dubon out of [place], [place]. Taking methocarbamol 750 mg 3 times [...] Dictation was accomplished with the use of [employer] voice recognition software, which is prone to [...] was diagnosed by Dr. Dubon out of [place], [place]. Taking methocarbamol 750 mg 3 times [...] Dictation was accomplished with the use of [employer] voice recognition software, which is prone to [...] for 11/20/2024. #Recent fall: Patient seen at [facility] ED 11/02/2024 s/p fall at work. [...] diffuse joint pain and fatigue. Follows with bellperson Dr. Clark out of [place], records requested and not yet available for my review. 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 States this was diagnosed by Dr. Dubon out of [place], [place]. Taking methocarbamol 750 mg 3 times [...] reviewed. Dictation completed with the use of [employer] voice recognition software, prone to medical misidentifications [...] Patient reports history of RA. Follows with bellperson Dr. Clark out of [place]. Has been treated previously with Humira, Enbrel, [...] was diagnosed by Dr. Dubon out of [place], [place]. Taking methocarbamol 750 mg 3 times [...] reviewed. Dictation completed with the use of [employer] voice recognition software, prone to medical misidentifications [...] for 11/20/2024. #Recent fall: Patient seen at [facility] ED 11/02/2024 s/p fall at work. [...] diffuse joint pain and fatigue. Follows with bellperson Dr. Clark out of [place], records requested and not yet available for my review. 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 States this was diagnosed by Dr. Dubon out of [place], [place]. Taking methocarbamol 750 mg 3 times [...] reviewed. Dictation completed with the use of [employer] voice recognition software, prone to medical misidentifications [...] Patient reports history of RA. Follows with bellperson Dr. Clark out of [place]. Has been treated previously with Humira, Enbrel, [...] was diagnosed by Dr. Dubon out of [place], [place]. Taking methocarbamol 750 mg 3 times [...] reviewed. Dictation completed with the use of [employer] voice recognition software, prone to medical misidentifications [...] was diagnosed by Dr. Dubon out of [place], [place]. Taking methocarbamol 750 mg 3 times [...] Dictation was accomplished with the use of [employer] voice recognition software, which is prone to [...] rib syndrome: Follows with Dr. Dubon with [facility]. Underwent repair 12/17/2024. #Ventral hernia: Surgical [...] arthritis: + Rheumatoid factor (152). Follows with bellperson Dr. Joshua Kaplan out of [place]. Follow-up labs including CAMILO, ESR/CRP, and comprehensive [...] Follows with psychiatric provider Clarice Lara with [facility]. Taking clonazepam 0.5 mg once daily [...] dysfunction. #Hyperkalemia: Patient reports she was at [facility] ED recently at which time her potassium [...] reviewed. Dictation completed with the use of [employer] voice recognition software, prone to medical misidentifications [...] Patient requesting urgent colonoscopy per recommendation of [facility] surgeon Jewel Dubon. On review of [...] gabapentin TID without symptom improvement. Follows with roller painter Dr. Trivedi. Historically the patient has [...] ER follow-up hospital follow-up. María presented to [facility] ED 04/19/2025 with chief complaint of [...] taking any pain medication. Previously followed with roller painter Dr. Trivedi who provided steroid injections. [...] with added opioid use. WIll refer to roller painter with goal of establishing safe pain management regimen. #RA: Follows with Joshua Kaplan MD out of [place]. Discussed possibility of chronic pain being related [...] reviewed. Dictation completed with the use of [employer] voice recognition software, prone to medical misidentifications [...] ER follow-up hospital follow-up. María presented to [facility] ED 04/19/2025 with chief complaint of [...] taking any pain medication. Previously followed with roller painter Dr. Trivedi who provided steroid injections. [...] with added opioid use. WIll refer to roller painter with goal of establishing safe pain management regimen. #RA: Follows with Joshua Kaplan MD out of [place]. Discussed possibility of chronic pain being related [...] reviewed. Dictation completed with the use of [employer] voice recognition software, prone to medical misidentifications [...] rib syndrome: Follows with Dr. Dubon with [facility]. Underwent repair 12/17/2024. #Ventral hernia: Surgical [...] arthritis: + Rheumatoid factor (152). Follows with bellperson Dr. Joshua Kaplan out of [place]. Follow-up labs including CAMILO, ESR/CRP, and comprehensive [...] Follows with psychiatric provider Clarice Lara with [facility]. Taking clonazepam 0.5 mg once daily [...] dysfunction. #Hyperkalemia: Patient reports she was at [facility] ED recently at which time her potassium [...] reviewed. Dictation completed with the use of [employer] voice recognition software, prone to medical misidentifications [...] for 11/20/2024. #Recent fall: Patient seen at [facility] ED 11/02/2024 s/p fall at work. [...] diffuse joint pain and fatigue. Follows with bellperson Dr. Clark out of [place], records requested and not yet available for my review. 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 States this was diagnosed by Dr. Dubon out of [place], [place]. Taking methocarbamol 750 mg 3 times [...] reviewed. Dictation completed with the use of [employer] voice recognition software, prone to medical misidentifications [...] for 11/20/2024. #Recent fall: Patient seen at [facility] ED 11/02/2024 s/p fall at work. [...] diffuse joint pain and fatigue. Follows with bellperson Dr. Clark out of [place], records requested and not yet available for my review. 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 States this was diagnosed by Dr. Dubon out of [place], [place]. Taking methocarbamol 750 mg 3 times [...] reviewed. Dictation completed with the use of [employer] voice recognition software, prone to medical misidentifications [...] ER follow-up hospital follow-up. María presented to [facility] ED 04/19/2025 with chief complaint of [...] undergone surgical correction with thoracic surgeon Jewel uDbon MD without resolution of pain. While inpatient patient received Tylenol, Dilaudid, and ketorolac for pain management. Not currently taking any pain medication. Previously followed with roller painter Dr. Trivedi who provided steroid injections. [...] with added opioid use. WIll refer to roller painter with goal of establishing safe pain management regimen. #RA: Follows with Joshua Kaplan MD out of [place]. Discussed possibility of chronic pain being related [...] reviewed. Dictation completed with the use of [employer] voice recognition software, prone to medical misidentifications [...] for 11/20/2024. #Recent fall: Patient seen at [facility] ED 11/02/2024 s/p fall at work. [...] diffuse joint pain and fatigue. Follows with bellperson Dr. Clark out of [place], records requested and not yet available for my review. 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 States this was diagnosed by Dr. Dubon out of [place], [place]. Taking methocarbamol 750 mg 3 times [...] reviewed. Dictation completed with the use of [employer] voice recognition software, prone to medical misidentifications [...] Previously following with Dr. Dubon out of [place], [place]. Underwent surgical correction RA: +RF - exentsive labs including ESR/CRP, jyfq-[id number] DNA, C3 and C for complement, anti-Bermeo antibodies, anti-B2 antibodies, anti-Lakisha antibodies, creatinine kinase, and anti-SSA/anti-SSB antibodies WNL. Follows with Eduardo out of [place]. Continue meloxicam 15mg. Anxiety: Follows with psychatiric [employer] Cassidy Quiroz. Continue lorazepam 1mg TID as [...] for 11/20/2024. #Recent fall: Patient seen at [facility] ED 11/02/2024 s/p fall at work. [...] diffuse joint pain and fatigue. Follows with bellperson Dr. Clark out of [place], records requested and not yet available for my review. 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 States this was diagnosed by Dr. uDbon out of [place], [place]. Taking methocarbamol 750 mg 3 times [...] reviewed. Dictation completed with the use of [employer] voice recognition software, prone to medical misidentifications [...] Tissue Head Neck 02/03/2025 Comp. Metabolic Panel [id number] Anti-Mi-2 Ab (RDL)-[id number] 12/13/2024 Anti-Ro (SS-A) Ab (RDL)-[id number] 5 Anti-La (SS-B) Ab (RDL)-[id number] 5 CREATINE KINASE AND CKMB 12/13/2024 Insurance Providers Payer Name Payer Address Payer Phone Subscriber Number Group Number Insured Name Patient Relationship to Insured Coverage Start Date Coverage End Date [facility] [address] [address] [place]IL[place] [id number] María Phillips Self - patient is [...]
--- OUTSIDE RECORDS SUMMARY | 2025-08-27 13:48 | XMS_ITS | Encounter Summary ---
Author Organization [facility] Address [address] [place] [address] Care Team Providers Care Harp Maker Name Role Phone Araceli Augustin Primary Care Provider + Encounter Details Date Type Department Care Team (Late st Contact Info) Description 08/06/2025 Results Follow-Up Gastroenterology - [place] [facility] 175 [facility] [address] [place] [phone] Gia Lance, NICOLE 175 [facility] [address] [place] [address] Social History Tobacco Use Types Packs/Day Years [...] Info) Description 08/28/2025 1:30 PM EDT Treatment [facility] Occupational Therapy 175 [facility] [address] [place] [phone] Nichelle Milian OT 09/23/2025 3:45 PM EST Office Visit Orthopedic Surgery - [place] 175 [facility] [address] [place] [phone] Bessy Mesa MD [address] [place] [phone] documented as of this encounter Visit Diagnoses Not on filedocumented in this encounter Care Teams Harp Maker Relationship Specialty Start Date End Date Araceli Augustin PA [address] [place] [phone] PCP - General 11/20/24 documented as of this encounter
--- OUTSIDE RECORDS SUMMARY | 2025-08-27 13:49 | XMS_ITS | Patient Health Record ---
Author Organization [facility] Address [address] [place] [address] Care Team Providers Care Pbx Supervisor Name Role Phone IKER ROBLERO PA-C Primary Care Provider Unav Mirella Pandali Unavailable [phone] Allergies Allergen (clinical drug ingredient) Drug/Non Drug Allergy documented on EMR Reaction Allergy Type Onset Date Status erythromycin ERYTHROMYCIN Skin Rash Drug Allergy A ctive Results Component Value Reference Range Notes Syphilis RPR w/reflex Reviewed date:08/21/2025 07:51:06 AM Interpretation: Performing Lab:Siobhan Nazario [employer], [address], [employer], Phone - [phone], Director - [facility] Notes/Report: Clinical Information:SRC:UR RPR Non Reactive Non Reactive PDF Report Reviewed date:07/10/2025 04:46:44 PM Interpretation: Performing Lab:Siobhan Nazario [address] [employer], [address], [employer], Phone - [phone], Director - [facility] Notes/Report: Clinical Information:VAG/CERV [id number] Dates / Results....05/26/2023 ASCUS POS HPV Other..............Post Menopausal No. of containers..01 ThinPrep Vial [id number] IGP No Culture 30 Plus Reviewed date:07/17/2025 02:32:32 PM Interpretation: Performing Lab:Siobhan Nazario [address], [address], [employer], Phone - [phone], Director - [facility] Notes/Report: Clinical Information:VAG/CERV [id number] Dates / Results....05/26/2023 ASCUS POS HPV Other..............Post Menopausal No. of containers..01 ThinPrep Vial Clinical Information:VAG/CERV [id number] Dates / Results....05/26/2023 ASCUS POS HPV Other..............Post Menopausal No. of containers..01 ThinPrep Vial DIAGNOSIS: NEGATIVE FOR INTRAEPITHELIAL LESION OR MALIGNANCY. THIS SPECIMEN WAS RESCREENED PART OF OUR PSYCHOLOGY ASSISTANT PROGRAM. Specimen adequacy: Satisfactory for evaluation. Endocervical and/or squamous metaplastic cells (endocervical component) are present. Clinician provided ICD10: Z01.419 Z11.51 Performed by: Tianna vasquez, Plant Sciences Professor (ASCP) QC reviewed by: Tutu weaver, Plant Sciences Professor (ASCP) . . Note: The Pap smear [...] Negative Negative HPV Genotype 18,45 Negative Negative Chlamydia/GC Amplification Reviewed date:08/20/2025 05:10:49 PM Interpretation: Performing Lab:Siobhan Nazario, [address], [place], Phone - [phone], Director - [facility] Notes/Report: Clinical Information:SRC: Chlamydia trachomatis, AZBE Negative Negative Neisseria gonorrhoeae, AZEB Negative Negative PDF Report Reviewed date:08/20/2025 05:10:43 PM Interpretation: Performing Lab:Siobhan Nazario, [address], [employer], Phone - [phone], Director - [facility] Notes/Report: Clinical Information:SRC: PDF Report Reviewed date:08/21/2025 07:50:23 AM Interpretation: Performing Lab:Shar [place], [address], [address], [place], Phone - [phone], Director - [facility] Notes/Report: Clinical Information:SRC:UR HCV Antibody-[id number] Reviewed date:08/21/2025 07:51:12 AM Interpretation: Performing Lab:[facility] [place], [address], [address], [place], Phone - [phone], Director - [facility] Notes/Report: Clinical Information:SRC:UR Hep C Virus Ab Non Reactive Non Reactive HCV antibody alone does not differentiate between previously resolved infection and active infection. Equivocal and Reactive HCV antibody results should be followed up with an HCV RNA test to support the diagnosis of active HCV infection. M genitalium AZEB, Urine-1800 25 Reviewed date:08/21/2025 07:50:59 AM Interpretation: Performing Lab:[facility] [place], [address], [address], [place], Phone - [phone], Director - [facility] Notes/Report: Clinical Information:SRC:UR Mycoplasma genitalium AZEB Negative Negative HIV Ab/p24 Ag with Reflex-08 3935 Reviewed date:08/21/2025 07:51:19 AM Interpretation: Performing Lab:[facility] [place], [address], [address], [place], Phone - [phone], Director - [facility] Notes/Report: Clinical Information:SRC:UR HIV Ab/p24 Ag Screen Non Reactive Non Reactive HIV-1/HIV-2 antibodies and HIV-1 p24 antigen were NOT detected. There is no laboratory evidence of HIV infection. HIV Negative HBsAg Screen-044121 Reviewed date:08/21/2025 07:50:52 AM Interpretation: Performing Lab:[facility] [place], [address], [address], [place], Phone - [phone], Director - [facility] Notes/Report: Clinical Information:SRC:UR HBsAg Screen Negative Negative PDF Report Reviewed date:12/14/2024 02:47:46 PM Interpretation: Performing Lab:Labcodaniella Galicia, [address] [place] [address], Phone - [phone], Director - Elsa Notes/Report: Test(s) 873718-Stg. B1, Whole Blood was developed and its performance characteristics determined by [employer]. It has not been cleared or approved by the Food and Drug Administration. Vitamin B1 (Thiamine), Blood -954385 Reviewed date:12/14/2024 02:48:18 PM Interpretation: Performing Lab:[facility] [place], Phone - [phone], Director - [facility] Notes/Report: Test(s) 351127-Htx. B1, Whole Blood was developed and its performance characteristics determined by [facility]. It has not been cleared or approved by the Food and Drug Administration. Vit. B1, Whole Blood 131.3 66.5-200.0 nmol/L Vitamin D, 24-Fuqfcnk-704111 Reviewed date:12/14/2024 02:47:53 PM Interpretation: Performing Lab:[facility] [address], Phone - [phone], [facility]/Report: Test(s) 770619-Bmv. B1, Whole Blood was developed and its performance characteristics determined by [facility]. It has not been cleared or approved by the Food and Drug Administration. Vitamin D, 25-Hydroxy 48.0 30.0-100.0 ng/mL Vitamin D deficiency has been defined by the [place] of Medicine and an Endocrine Society practice guideline as a level of serum 25-OH vitamin D less than 20 ng/mL (1,2). The Endocrine Society went on to further define vitamin D insufficiency as a level between 21 and 29 ng/mL (2). 1. IOM ([place] of Medicine). 2010. Dietary reference intakes for calcium and D. [place]: The National Academies Press. 2. Angelica MF, Leonel NC, Sheeba MCKENNA, et al. Evaluation, treatment, and prevention of vitamin D deficiency: an Endocrine Society clinical practice guideline. JCEM. 2010; 96(7):1911-30. Triiodothyronine (T3), Free- 823795 Reviewed date:12/14/2024 02:48:08 PM Interpretation: Performing Lab:[facility] [place], [address] [place] [address], [place], Phone - [phone], Director - [facility] Notes/Report: Test(s) 984786-Glh. B1, Whole Blood was developed and its performance characteristics determined by [facility]. It has not been cleared or approved by the Food and Drug Administration. Triiodothyronine (T3), Free 2.9 2.0-4.4 pg/mL TSH-549238 Reviewed date:12/14/2024 02:48:55 PM Interpretation: Performing Lab:[facility] Edita Galicia [facility] [place], Phone - [phone], [facility] Notes/Report: Test(s) 480099-Gsn. B1, Whole Blood was developed and its performance characteristics determined by [facility]. It has not been cleared or approved by the Food and Drug Administration. TSH 0.492 0.450-4.500 uIU/mL Thyroxine (T4) Free, Direct- 044490 Reviewed date:12/14/2024 02:48:28 PM Interpretation: Performing Lab:[facility] Edita Galicia [facility] [place], Phone - [phone], [facility] Elsa Notes/Report: Test(s) 902817-Vjr. B1, Whole Blood was developed and its performance characteristics determined by [facility]. It has not been cleared or approved by the Food and Drug Administration. T4,Free(Direct) 1.16 0.82-1.77 ng/dL Vitamin O35-532690 Reviewed date:12/14/2024 02:48:01 PM Interpretation: Performing Lab:[facility] Edita Galicia [facility], Phone - [phone], Director Flakito Hunter Notes/Report: Test(s) 583502-Whp. B1, Whole Blood was developed and its performance characteristics determined by [facility]. It has not been cleared or approved by the Food and Drug Administration. Vitamin B12 998 633-8173 pg/mL Urinalysis Reviewed date:10/14/2024 01:33:35 PM Interpretation: Performing Lab: Notes/Report: PH 8.0 PROTEIN Neg GLUCOSE Neg BLOOD Neg PDF Report Reviewed date:07/03/2025 07:41:07 AM Interpretation: Performing Lab:[facility] Edita Galicia [facility] [place], Phone - [phone], Director Flakito Hunter Notes/Report: Clinical Information:SRC: Urine Culture, Routine-82803 7 Reviewed date:07/03/2025 07:42:29 AM Interpretation: Performing Lab:[facility] Edita Galicia [facility] [place], Phone - [phone], Director Flakito Hunter Notes/Report: Clinical Information:SRC:UC Clinical Information:SRC:UC Urine Culture, Routine Final report Result 1 Mixed urogenital ramone 25,000-50,000 colony forming units per mL Urinalysis, Complete-495683 Reviewed date:07/03/2025 07:42:16 AM Interpretation: Performing Lab:[facility] [place], [address], [place], Phone - [phone], Director - Elsa Notes/Report: Clinical Information:SRC: Clinical Information:SRC:UC Specific [place] 1.013 1.005-1.030 pH 6.5 5.0-7.5 Urine-Color Yellow [...] seen /lpf Bacteria None seen None seen/Few Reason For Referral No Information Medications Medication [...] test positive, high risk on vaginal specimen ([id number]) Cervical high risk human papillomavirus (HPV) DNA test positive (R87.810) Active confirmed Problem Postmenopausal atrophic vaginitis (59547871) Postmenopausal atrophic vaginitis (N95.2) Active confirmed Problem Cervicovaginal cytology: Low grade squamous intraepithelial lesion (884192400) Low grade squamous intraepithelial lesion on cytologic smear of cervix (LGSIL) (R87.612) Active confirmed Problem Non-toxic single thyroid nodule (603012724) Nontoxic single thyroid nodule (E04.1) Active confirmed Problem Autoimmune thyroiditis (87952751) Autoimmune thyroiditis (E06.3) Active confirmed Problem Anxiety disorder (184364885) Anxiety disorder, unspecified (F41.9) Active confirmed Problem Epidermal cyst (954609999) Epidermal cyst (L72.0) Active confirmed Problem Rheumatoid arthritis (28864656) Rheumatoid arthritis, unspecified (M06.9) Active confirmed Problem Endometrial intraepithelial neoplasia (610675645) 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) Active confirmed Problem Postcoital bleeding (03884293) Postcoital and contact bleeding (N93.0) Active confirmed Problem Unspecified abnormal finding in specimens from female genital organs (R87.9) Active confirmed Problem Menopause (034886602) Menopausal and female climacteric states (N95.1) Active confirmed Problem Anxiety state (275385798) Anxiety state, unspecified (300.00) Active confirmed Major Vital Signs Temperature 97.3 degrees Fahrenheit 07/03/2025 Blood pressure diastolic 84 mm Hg 07/03/2025 Height 62 in 07/03/2025 Blood pressure systolic 128 mm Hg 07/03/2025 Weight 161 lbs 07/03/2025 BMI 29.44 kg/m2 07/03/2025 Encounters Encounter Location Date Provider Diagnosis [facility] [address] [address] 12/05/2024 Latonya Lozano [facility] [address] [address] 02/14/2025 Latonyaines DiazLozano [facility] [address] [address] 03/06/2025 Latonyaines DiazLozano Total [address] [address] 10/14/2024 Latonya Mcgeeva Encounter for gynecological examination (general) (routine) without abnormal findings Z01.419 ; Encounter for screening mammogram for malignant neoplasm of breast Z12.31 ; Personal history of other diseases of the female genital tract Z87.42 ; Cervical high risk human papillomavirus (HPV) DNA test positive R87.810 and Postmenopausal atrophic vaginitis N95.[address] [address] 12/09/2024 Latonyaines Mcgeeva Other fatigue R53.83 and Menopausal and female climacteric states N95.[address] [address] 07/03/2025 Latonyaines Mcgeeva Lower abdominal pain , unspecified R10.30 ; Atypical squamous cells of undetermined significance on cytologic smear of vagina (ASC-US) R87.620 ; Cervical high risk human papillomavirus (HPV) DNA test positive R87.810 and Encounter for screening for human papillomavirus (HPV) Z11.[address] [address] 12/03/2024 Latonyaines DiazLozano Total [address] [address] 12/12/2024 Latonyaines DiazLozano [address] [address] 01/22/2025 Latonyaines DiazLozano [address] [address] 02/16/2025 Latonya Lozano Total [facility] [address] [facility] [address] [place] [address] 06/30/2025 Latonya Lozano Dysuria R30.0 Total [facility] [address] [facility] [address] [place] [address] 08/19/2025 Latonya Lozano High risk heterosexu al [...] AND NEEDS TESTOSTERONE THERAPY, WILL REFER TO [facility]. WARNED PAT OF POSSIBLE VAGINAL BLEEDING. [...] 10/14/2024 [facility] Digital Mammo Screening 05/04/2023 Chlamydia/GC Amplification-368940 2024 Insurance Providers Payer Name Payer Address Payer Phone Subscriber Number Group Number Insured Name Patient Relationship to Insured Coverage Start Date Coverage End Date [place] [address] [address] [place] [id number] MARCUS OLSON Self - patient is the [...]
--- OUTSIDE RECORDS SUMMARY | 2025-08-27 13:49 | XMS_ITS | Clinical Summary ---
Author Organization [facility] Address [address] [place] [address] Phone Care Team Providers Care Money Room Supervisor Name Role Phone Araceli Augustin Primary Care [...] sodium (COLACE) 100 mg capsule if needed. 03/25/2025 Active buPROPion XL (WELLBUTRIN XL) 150 mg 24 hr tablet Take 1 tablet (150 mg total) by mouth 1 (one) time each day. Do not crush, chew, or split. Active diazePAM (VALIUM) 5 mg tablet Take 1 tablet (5 mg total) by mouth 2 (two) times a day if needed. 07/10/2025 Active cetirizine (ZyrTEC) 10 mg tablet Take 1 tablet (10 mg total) by mouth 1 (one) time each day. Active esomeprazole (NexIUM) [address] capsule Take 1 capsule (40 mg total) by mouth 1 (one) time each day before breakfast. Do not open capsule. 30 each 11 07/28/2025 6 Active dicyclomine (BENTYL) 20 mg tablet Take 1 tablet (20 mg total) by mouth 4 (four) times a day if needed (Abdominal pain). 120 each 07/28/2025 5 Active sucralfate (CARAFATE) 1 gram tablet Take 1 tablet (1 g total) by mouth 4 (four) times a day (before meals and nightly). 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 Phillips describes increasing issues with her lower back and legs. The lumbar CT from [facility] show degenerative disc disease but not stenosis. Her description of paresthesias and leg shaking raise concerns for stenosis. Her workup at the [facility] did not correlate with cauda equina syndrome. She is now awaiting a lumbar spine MRI at [place]. I be happy to review that once [...] this, is currently seeing 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 [place] at [facility], had injection in the right lower [...] knee 10/03/2023 Thyroid nodule 07/05/2021 Overview (08/01/2024): 06/2021 FNA pending Other specified anxiety disorders 02/09/2021 Rheumatoid arthritis ([facility] V24, [facility] V28) 12/25/2020 Carpal tunnel syndrome 01/23/2020 [...] Team Description 08/21/2025 12:00 PM EDT Evaluation [facility] Occupational Therapy 175 [facility] [address] [place] [phone] Nichelle Milian OT 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 250 175 [facility] [address] [place] [phone] Von Mcclure MD Knee pain (Primary Dx); Post-traumatic osteoarthritis of left knee; Primary osteoarthritis of right knee 08/13/2025 Telephone Gastroenterology [facility] 175 [facility] 175 [facility] [address] [place] [phone] Gia Lance NP 08/12/2025 3:45 PM EDT Office Visit Orthopedic [facility] 175 [facility] [address] [place] [phone] Bessy Mesa MD Wrist pain (Primary Dx); Osteochondrosis of lunate of right wrist; Surgery follow-up 08/06/2025 Results Follow-Up Gastroenterology [facility] 175 [facility] 175 [facility] [address] [place] [phone] Gia Lance NP 08/05/2025 Telephone Orthopedic Surgery [facility] 250 175 [facility] [address] [place] [phone] Von Mcclure MD 08/04/[address] [facility] 250 175 [facility] [address] [place] [phone] Bessy Mesa MD 07/29/2025 3:45 PM EDT Office Visit Orthopedic Surgery [facility] 175 [facility] [address] [place] [phone] Bessy Mesa MD Osteochondrosis of lunate of right wrist (Primary Dx); Surgery follow-up 07/29/2025 Telephone Orthopedic Surgery [facility] 250 175 [facility] [address] [place] [phone] Von Mcclure MD 07/28/2025 2:40 PM EDT Office Visit Gastroenterology [facility] 175 [facility] 175 [facility] [address] [place] [phone] Gia Lance, NICOLE Erosive gastropathy (Primary Dx); Abdominal pain, chronic, right upper quadrant; History of Helicobacter pylori infection; Esophageal dysmotility; Tobacco use disorder 07/24/2025 8:40 AM EDT Consult Endocrinology [address] [phone] Marian Turner MD Hypothyroidism (acquired) (Primary Dx); Hyperthyroidism 07/24/2025 Telephone Orthopedic Surgery [facility] [address] [phone] Bessy Mesa MD 07/23/2025 3:30 PM EDT Office Visit Orthopedic Surgery [facility] [address] [phone] Nichelle Archibald PA Surgery follow-up (Primary Dx) 07/23/2025 Telephone Orthopedic Surgery [facility] [address] [phone] Jacquelyn Sow 07/16/2025 1:10 PM EDT Anesthesia Event [facility] Main OR [address] [place] [phone] Magda Siegel MD Chang, Ling, CRNA 07/16/2025 12:30 PM EDT - 07/16/2025 2:00 PM EDT Surgery [facility] Main OR [address] [place] [phone] Bessy Mesa MD core decompression right distal radius [56898 (CPT )] 07/16/2025 10:33 AM EDT - 07/16/2025 4:05 PM EDT Hospital Encounter [facility] Main OR [address] [place] [phone] Bessy Mesa MD 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 (CMS/[facility] V24, CMS/HCC V28) Discharge Disposition: Home or Self Care 07/16/2025 7:20 AM EDT - 07/16/2025 11:59 PM EDT Hospital Encounter [facility] Xray [address] [place] [phone] Pain Discharge Disposition: Home or Self Care 07/16/2025 Telephone Gastroenterology [facility] [address] [place] [phone] Gia Lance NP 07/15/2025 Telephone Orthopedic Surgery [facility] [address] [phone] Bessy Mesa MD 07/08/2025 6:02 PM EDT - 07/08/2025 10:10 PM EDT Emergency [facility] Emergency [address] [place] [phone] Jalil Steven MD Goebel, Mathew, MD Spinal stenosis of lumbar region, unspecified whether neurogenic claudication present (Primary Dx) Discharge Disposition: Home or Self Care 07/08/2025 3:15 PM EDT Consult Orthopedic Surgery [facility] 175 [facility] [address] [place] [phone] Bessy Mesa MD Osteochondrosis of lunate of left wrist (Primary Dx) 06/26/2025 Telephone Orthopedic Surgery [facility] [address] [phone] Siria Palumbo 06/25/2025 8:30 AM EDT Ancillary Procedure [facility] [address] [place] [phone] Dyspnea on exertion 06/25/2025 Telephone Orthopedic Surgery [facility] [address] [phone] Bessy Mesa MD 06/20/2025 8:00 AM EDT Office Visit Orthopedic [facility] [address] [phone] Bessy Mesa MD Osteochondrosis of lunate of left wrist (Primary Dx) 06/20/2025 Telephone Orthopedic Surgery [facility] [address] [phone] Bessy Mesa MD 06/19/2025 Telephone Gastroenterology [facility] [address] [phone] Gia Lance, NICOLE 06/11/2025 Telephone Orthopedic Surgery [facility] [address] [phone] Nichelle Archibald PA 06/06/2025 Telephone Gastroenterology [facility] [address] [phone] Gia Lance, NICOLE 06/05/2025 11:56 AM EDT Anesthesia Event [facility] Endoscopy [address] [place] [phone] Jewel Wilcox MD 06/05/2025 10:21 AM EDT - 06/05/2025 11:59 PM EDT Hospital Encounter [facility] Endoscopy [address] [place] [address] Melba Bunn MD Steele, Matthew G, CRNA Zorn, Jamie M, MD Diarrhea, unspecified type; Change in bowel habits Discharge Disposition: Home or Self Care 06/05/[address] [facility] [address] [phone] Nichelle Archibald PA 06/04/2025 1:45 PM EDT Office Visit Orthopedic Surgery [facility] [address] [phone] Nichelle Archibald PA Arthritis of right wrist (Primary Dx) 05/28/2025 4:11 PM EDT - 05/28/2025 11:59 PM EDT Hospital Encounter [facility] CT Scan [address] [place] [address] Solitary pulmonary nodule Discharge Disposition: Home or Self Care from Last 3 Months Immunizations Immunization Administration Dates Next Due Hepatitis B (Aglimtf-U-Odgoj , Recombivax HB-Adult) 19yo and older 02/21/2022,01/17/2022 Influenza Quadravalent, MDCK , 0.5ml, preservative free (Flucelvax) 6mo and older 07/28/2023 Influenza trivalent, with preservative (Fluzone; Afluria) 6mo and older 09/19/2022,08/02/2021,09/23/2020,2019 PPD Test 06/01/2015 [employer] (ages 12 & older) ENMANUEL S-CoV-2 COVID-19, [...] 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 Dominant R neck band maker strength at least 35# (vs 20initial, vs [...] LMA(NO CHARGE) Routine 07/16/2025 1:23 PM EDT SD OSTEOTOMY RADIUS DISTAL THIRD 07/16/2025 1:09 PM [...] detected Not detected 08/05/2025 2:52 PM EDT [facility] Comment: This test was performed at [facility] using a chemiluminescent immunoassay intended for [...] Food and Drug Administration. Test performed at [facility], [address], [place] [address] Krystina Austin MD, PhD - Environmental Health Manager Stool Rectum structure / Unknown Non-blood Collection / Unknown 07/30/2025 9:58 AM EDT 07/30/2025 9:58 AM EDT Gia Lance NP LAB BODY FLUIDS AND STOOLS ORDE BORIS Final Result [facility] [address] [place] [address] * Thyroid stimulating hormone with reflex to free t4 and free t3 (07/24/2025 9:32 AM EDT) TSH 1.20 0.40 - 4.00 mcIU/mL LAB CHEMISTRY METHOD 07/24/2025 12:39 PM EDT [facility] Blood Venous blood specimen / Unknown Venipuncture / Unknown 07/24/2025 9:32 AM EDT 07/24/2025 9:32 AM EDT Marian Turner MD LAB BLOOD ORDERABLES Final Res ult [facility] [address] [place] [address], [place] [phone] * Thyroid stimulating immunoglobulin (07/24/2025 9:32 AM EDT) [facility] Thyroid Stimulating Immunoglobulin <0.10 <0.10 IU/L 07/28/2025 7:54 PM EDT [facility] Comment: Thyroid stimulating immunoglobulins (TSI) concentrations greater than or equal to (>=) 0.55 IU/L have a clinical sensitivity of at least 98.6%, and a clinical specificity of at least 98.5%, for the differential diagnosis of Graves' Disease. TSI concentrations for patients with other thyroid or autoimmune diseases range from 0.11 to 0.39 IU/L. Test performed at [facility], [address] , [place] [address] Krystina Austin MD, PhD - Environmental Health Manager Blood Venous blood specimen / Unknown Venipuncture / Unknown 07/24/2025 9:32 AM EDT 07/24/2025 9:32 AM EDT Marian Turner MD LAB BLOOD ORDERABLES Final Res ult [facility] [address] [place] [address] * Triiodothyronine free (07/24/2025 9:32 AM EDT) [facility] T3, Free 316 230 - 420 pcg/dL LAB CHEMISTRY METHOD 07/24/2025 12:38 PM EDT [facility] Blood Venous blood specimen / Unknown Venipuncture / Unknown 07/24/2025 9:32 AM EDT 07/24/2025 9:32 AM EDT Marian Turner MD LAB BLOOD ORDERABLES Final Res ult [facility] [address] [place] [address], * Thyroxine free (07/24/2025 9:32 AM EDT) [facility] Free T4 1.16 0.70 - 1.80 ng/dL LAB CHEMISTRY METHOD 07/24/2025 12:38 PM EDT [facility] Blood Venous blood specimen / Unknown Venipuncture / Unknown 07/24/2025 9:32 AM EDT 07/24/2025 9:32 AM EDT us Marian Turner MD LAB BLOOD ORDERABLES Final Res ult [facility] [address] [place] [address], [place] [phone] * Tissue exam (07/16/2025 1:50 PM EDT) Only the most recent of2 resultswithin the time period is included. Final Diagnosis Bone, Right, Distal Radius-decomp ression: -FRAGMENTS OF TRABECULAR BONE WITH NO SPECIFIC PATHOLOGIC CHANGE 07/18/2025 12:03 PM EDT [facility] Comment Intact specimen with articular cartilage is preferred specimen for evaluating avascular necrosis. 07/18/2025 12:03 PM EDT [facility] Gross Description A. Wrist, Right, Distal Radius: Labeled right dis wrist R . Received in formalin is a 1.4 x 0.8 x 0.2 cm aggregate of hard, rocha-red bone fragments which are wrapped in paper and submitted in toto in one cassette, multiple pieces, following decalcificati on. TS 07/18/2025 12:03 PM EDT [facility] Disclaimer Unless otherwise specified, all tissue is 10% NB formalin fixed and paraffin embedded. 07/18/2025 12:03 PM EDT [facility] Bone Structure of right wrist region / Unknown 07/16/2025 1:50 PM EDT 07/16/2025 3:19 PM EDT Bessy Mesa MD LAB PATHOLOGY ORDERABLES Nataliia l Result [facility] [address] [place] [address], * (ABNORMAL) Culture anaerobic with gram stain (07/16/2025 1:40 PM EDT) Culture, Anaerobic No Growth of Anaerobes. 07/24/2025 8:51 AM EDT [facility] Culture, Anaerobic Staphylococcus warneri(A) ABBEY 07/24/2025 8:51 AM EDT [facility] Comment: SPARSE Beta-lactamase negative The organism value for this result has been updated. These results have been appended to the previously preliminary verified report. Edited result: Previously reported as Gram Positive Cocci on 07/20/2025 at 0832 EDT. Culture, Anaerobic Streptococcus viridans group(A) ABBEY 07/24/2025 8:51 AM EDT [facility] Comment: SPARSE Susceptibility testing not routinely [...] species,not anthracis(A) ABBEY 07/24/2025 8:51 AM EDT [facility] Comment: SPARSE The organism value for this result has been updated. These results have been appended to the previously preliminary verified report. Gram Stain Result Refer to Aerobic culture for gram stain results. 07/24/2025 8:51 AM EDT [facility] Swab Structure of right wrist region [...] Staphylococcus warneri Rifampin ABBEY <=0.5 ug/ml: Susceptible us Bessy Mesa MD LAB MICROBIOLOGY - GENERAL OR DERABLES Final Result Performing Organization Address [facility] Co de Phone Number [facility] [address] [place] [address], [place] [phone] * Culture wound deep (07/16/2025 1:40 PM EDT) Culture, Wound No growth at 3 days 07/19/2025 10:14 AM EDT [facility] Gram Stain Result No polymorphonuclear leukocytes, No epithelial cells, and No organisms noted 07/19/2025 10:14 AM EDT [facility] Swab Structure of right wrist region / Unknown 07/16/2025 1:40 PM EDT 07/16/2025 2:37 PM EDT us Bessy Mesa MD LAB MICROBIOLOGY - GENERAL OR DERABLES Final Result Performing Organization Address [facility]/ZIP Co de Phone Number [facility] [address] [place] [address], [place] [phone] * TH AN LMA(NO CHARGE) (07/16/2025 1:23 [...] spinal canal stenosis T12-L1 through L4-L5, and xtys-za-ncnlnvci bilateral L4-L5 neural foraminal stenosis. 2. Unremarkable [...] spinal canal stenosis from T12-L1 through L4-L5. Olgw-tm-judbztae bilateral L4-L5 neural foraminal stenosis. Unremarkable appearance [...] spinal canal stenosis from T12-L1 through L4-L5. Ylvw-fe-bfbabgme bilateral L4-L5 neural foraminal stenosis. Unremarkable appearance of the conus medullaris and cauda equina. Paraspinous musculature intact. IMPRESSION: 1. Multilevel degenerative changes of the lumbar spine as described contributing to mild multifocal spinal canal stenosis T12-L1 through L4-L5, and smgh-hm-pwiohwud bilateral L4-L5 neural foraminal stenosis. 2. Unremarkable appearance of the conus medullaris and cauda equina. This document has been electronically signed by: James Sheth MD on 07/08/2025 21:13:43 Jalil Steven MD [facility] MRI PROCEDURES Final Result * (ABNORMAL) CBC auto differential (07/08/2025 7:06 PM EDT) WBC 7.5 4.8 - 10.8 K/mcL LAB HEMETOLOGY METHOD 07/08/2025 7:22 PM EDT [facility] RBC 4.20 3.80 - 4.80 M/mcL LAB HEMETOLOGY METHOD 07/08/2025 7:22 PM EDT [facility] Hemoglobin 13.8 11.5 - 16.0 g/dL LAB HEMETOLOGY METHOD 07/08/2025 7:22 PM EDT [facility] Hematocrit 40.7 35.0 - 47.0 % LAB HEMETOLOGY METHOD [facility]08[facility]2025 [facility] MCV 97.4 79.0 - 98.0 FL LAB HEMETOLOGY METHOD 07/08/2025 7:22 PM [facility] MCH 33.0(H) 27.0 - 32.0 pcg LAB HEMETOLOGY METHOD 07/08/2025 7:22 PM [facility] MCHC 33.9 32.0 - 37.0 g/dL LAB HEMETOLOGY METHOD 07/08/2025 7:22 PM [facility] RDW 12.7 11.0 - 15.0 % LAB HEMETOLOGY METHOD 07/08/2025 7:22 PM [facility] Platelets 311 130 - 400 K/mcL LAB HEMETOLOGY METHOD 07/08/2025 7:22 PM [facility] MPV 9.3 7.0 - 11.0 FL LAB HEMETOLOGY METHOD 07/08/2025 7:22 PM [facility] NRBC 0.0 <1.0 % LAB HEMETOLOGY METHOD 07/08/2025 7:22 PM [facility] NRBC Absolute 0.00 <0.10 K/mcL LAB HEMETOLOGY METHOD 07/08/2025 7:22 PM [facility] Neutrophils Relative 49.3 % LAB HEMETOLOGY METHOD 07/08/2025 7:22 PM [facility] Lymphocytes Relative 39.4 % LAB HEMETOLOGY METHOD 07/08/2025 7:22 PM [facility] Monocytes Relative 7.6 % LAB HEMETOLOGY METHOD 07/08/2025 7:22 PM [facility] Eosinophils Relative 2.9 % LAB HEMETOLOGY METHOD 07/08/2025 7:22 PM [facility] Basophils Relative 0.5 % LAB HEMETOLOGY METHOD 07/08/2025 7:22 PM [facility] Immature Granulocytes Relative 0.3 % LAB HEMETOLOGY METHOD 07/08/2025 7:22 PM [facility] Neutrophils Absolute 3.68 1.50 - 7.00 K/mcL LAB HEMETOLOGY METHOD 07/08/2025 7:22 PM EDT [facility] Lymphocytes Absolute 2.94 1.00 - 5.00 K/[facility] LAB HEMETOLOGY METHOD 07/08/2025 7:22 PM EDT [facility] Monocytes Absolute 0.57 0.20 - 1.00 K/[facility] LAB HEMETOLOGY METHOD 07/08/2025 7:22 PM EDT [facility] Eosinophils Absolute 0.22 0.00 - 0.50 K/[facility] HEMETOLOGY METHOD 07/08/2025 7:22 PM EDT [facility] Basophils Absolute 0.04 0.00 - 0.20 K/[facility] HEMETOLOGY METHOD 07/08/2025 7:22 PM EDT [facility] Immature Granulocytes Absolute 0.02 0.00 - 0.03 K/[facility] HEMETOLOGY METHOD 07/08/2025 7:22 PM EDT [facility] Blood Venous blood specimen / Unknown Venipuncture / Unknown 07/08/2025 7:06 PM EDT 07/08/2025 7:15 PM EDT Juan F Doshi MD LAB BLOOD ORDERABLES Final Result Performing Organization Address [facility] Co de Phone Number [facility] [address] [place] [address], * Lipase (07/08/2025 7:06 PM EDT) Lipase 19 13 - 75 unit/L LAB CHEMISTRY METHOD 07/08/2025 7:54 PM EDT [facility] Blood Venous blood specimen / Unknown Venipuncture / Unknown 07/08/2025 7:06 PM EDT 07/08/2025 7:15 PM EDT Juan F Doshi MD LAB BLOOD ORDERABLES Final Result [facility] [address] [place] [address], [place] [phone] * Comprehensive metabolic panel (07/08/2025 7:06 PM EDT) Sodium 140 133 - 145 mmol/L LAB CHEMISTRY METHOD 07/08/2025 7:54 PM EDT [facility] Potassium 4.1 3.5 - 5.5 mmol/L LAB CHEMISTRY METHOD 07/08/2025 7:54 PM EDT [facility] Chloride 104 96 - 110 mmol/L LAB CHEMISTRY METHOD 07/08/2025 7:54 PM EDT [facility] CO2 29 21 - 32 mmol/L LAB CHEMISTRY METHOD 07/08/2025 7:54 PM [facility] Anion Gap 7 3 - 11 LAB CHEMISTRY METHOD 07/08/2025 7:54 PM [facility] Glucose 81 70 - 100 mg/dL LAB CHEMISTRY METHOD 07/08/2025 7:54 PM [facility] BUN 8 5 - 25 mg/dL LAB CHEMISTRY METHOD 07/08/2025 7:54 PM [facility] Creatinine 0.81 0.50 - 1.10 mg/dL LAB CHEMISTRY METHOD 07/08/2025 7:54 PM [facility] eGFR 84 >=60 mL/min/1. 73m2 LAB CHEMISTRY METHOD 07/08/2025 7:54 PM [facility] Comment:Calculation based on the Chronic Kidney Disease Epidemiology Collaboration (CKD-EPI) equation refit without adjustment for race. BUN/Creatinine Ratio 9.9 LAB CHEMISTRY METHOD 07/08/2025 7:54 PM [facility] Calcium 9.8 8.5 - 10.5 mg/dL LAB CHEMISTRY METHOD 07/08/2025 7:54 PM [facility] AST (SGOT) 23 10 - 42 unit/L LAB CHEMISTRY METHOD 07/08/2025 7:54 PM EDT [facility] ALT (SGPT) 29 10 - 60 unit/L LAB CHEMISTRY METHOD 07/08/2025 7:54 PM EDT [facility] Alkaline Phosphatase 102 42 - 121 unit/L LAB CHEMISTRY METHOD 07/08/2025 7:54 PM EDT [facility] Total Protein 6.8 6.0 - 8.0 g/dL LAB CHEMISTRY METHOD 07/08/2025 7:54 PM EDT [facility] Albumin 4.0 3.2 - 5.0 g/dL LAB CHEMISTRY METHOD 07/08/2025 7:54 PM EDT [facility] Total Bilirubin 0.5 0.0 - 1.4 mg/dL LAB CHEMISTRY METHOD 07/08/2025 7:54 PM EDT [facility] Blood Venous blood specimen / Unknown Venipuncture / Unknown 07/08/2025 7:06 PM EDT 07/08/2025 7:15 PM EDT us Juan F Doshi MD LAB BLOOD ORDERABLES Final Result [facility] [address] [place] [address], [place] [phone] * (ABNORMAL) TRANSTHORACIC ECHOCARDIOGRAM (TTE) COMPLETE (06/25/2025 9:10 AM EDT) Left Atrium Minor [place] 4.9 cm CV PACS Left Atrium Major [place] 4.9 cm CV PACS LA Area Sys [...] Volume 57 mL CV PACS MV Deceleration [place] 4.1 m/s2 CV PACS E Wave Deceleration [...] PROCEDURES Final Result * COLONOSCOPY Anesthesia - [facility] END[facility]COPY (06/05/2025 12:23 PM EDT) Anatomical [...] previously scheduled. Narrative 06/05/2025 12:27 PM EDT [facility] GI Patient Name: María Phillips Procedure [...] verified by the physician, the nurse, the review engineer and the software test technician in the pre-procedure area in the [...] not prolapse). Procedure Code(s): --- Professional --- 18887, Colonoscopy, flexible; with biopsy, single or multiple Diagnosis Code(s): --- Professional --- R19.7, Diarrhea, unspecified CPT copyright 2020 [employer]. All rights reserved. The codes documented in this report are preliminary and upon cable tower operator review may be revised to meet current compliance requirements. Melba Bunn MD 06/05/2025 12:27:19 PM This report has been signed electronically.Melba Bunn MD Number of Addenda: 0 Note Initiated On: 06/05/2025 11:57 AM Scope Withdrawal Time: 0 hours 6 minutes 22 seconds Scope In: 12:10:33 PM Scope Out: 12:23:27 PM Endoscopy Department at [facility] - [address] [place] [id number] Procedure Note Melba Bunn MD - 06/05/2025 [facility] GI Patient Name: María Phillips Procedure [...] the physician, the nurse, theanesthetist and the software test technician in the pre-procedure area in the [...] not prolapse). Procedure Code(s): --- Professional --- 31837, Colonoscopy, flexible; with biopsy, singleor multiple Diagnosis Code(s): --- Professional --- R19.7, Diarrhea, unspecified CPT copyright 2020 [employer]. All rights reserved. The codes documented in this report are preliminary and upon cable tower operator reviewmay be revised to meet current compliance requirements. Melba Bunn MD 06/05/2025 12:27:19 PM This report has been signed electronically.Melba Bunn MD Number of Addenda: 0 Note Initiated On: 06/05/2025 11:57 AM Scope Withdrawal Time: 0 hours 6 minutes 22 seconds Scope In: 12:10:33 PM Scope Out: 12:23:27 PM Endoscopy Department at [facility] - [address] [place] [phone] IMPRESSION: - The examined portion of the [...] 2. No developing thoracic lymphadenopathy. T[place]ad [place] ([id number]) -------- FINAL REPORT -------- Dictated By: Dayami Diehl Dictated Date: 06/02/2025 09:00 ET Assigned Physician: Dayami Diehl Reviewed and Electronically Signed By: Dayami Diehl Signed Date: 06/02/2025 09:13 ET Workstation ID: [id number] Transcribed By: Self Edit Transcribed Date: 06/02/2025 09:00 ET Narrative 06/02/2025 9:13 AM EDT History: Pulmonary nodule follow-up. Comparison: 12/05/24 Technique: Helical volumetric imaging of the thorax was performed without IV contrast. DLP: 279.09 mGy/cm [facility] Luce Iterative reconstruction technique Findings: The trachea and [...] was performed withoutIV contrast. DLP: 279.09 mGy/cm [employer] Luce Iterative reconstruction technique Findings: The trachea and [...] 2. No developing thoracic lymphadenopathy. Telerad TL ([id number]) -------- FINAL REPORT -------- Dictated By: Dayami Diehl Dictated Date: 06/02/2025 09:00 ET Assigned Physician: Dayami Diehl Reviewed and Electronically Signed By: Dayami Diehl Signed Date: 06/02/2025 09:13 ET Workstation ID: [id number] Transcribed By: Self Edit Transcribed Date: 06/02/2025 [...] year. Mammo Location: [facility], [address] [place] [address], [id number], . -------- FINAL REPORT -------- Dictated By: Stefani Zamora Dictated Date: 02/06/2025 09:43 ET Assigned Physician: Stefani Zamora Reviewed and Electronically Signed By: Stefani Zamora Signed Date: 02/06/2025 09:45 ET Workstation ID: [id number] Transcribed By: Self Edit Transcribed Date: 02/06/2025 [...] year. Mammo Location: [facility], [address] [place] [address], [id number], . -------- FINAL REPORT -------- Dictated By: Stefani Zamora Dictated Date: 02/06/2025 09:43 ET Assigned Physician: Stefani Zamora Reviewed and Electronically Signed By: Stefani Zamora Signed Date: 02/06/2025 09:45 ET Workstation ID: [id number] Transcribed By: Self Edit Transcribed Date: 02/06/2025 09:43 ET Araceli BOOTHE IMG BI PROCEDURES Final Result * Lipid panel with reflex to direct LDL (10/28/2024 2:36 PM EST) [facility] Cholesterol 196 0 - 200 mg/dL LAB CHEMISTRY METHOD 10/28/2024 4:17 PM EST [facility] Triglycerides 51 0 - 150 mg/dL LAB CHEMISTRY METHOD 10/28/2024 4:17 PM EST [facility] HDL 111 >=40 mg/dL LAB CHEMISTRY METHOD 10/28/2024 4:17 PM EST [facility] LDL Calculated 75 0 - 100 mg/dL LAB CHEMISTRY METHOD 10/28/2024 4:17 PM [facility] VLDL Cholesterol Corby 10.2 mg/dL LAB CHEMISTRY METHOD 10/28/2024 4:17 PM EST [facility] Non HDL Chol. (LDL+VLDL) 85 <145 mg/dL LAB CHEMISTRY METHOD 10/28/2024 4:17 PM EST [facility] Chol/HDL Ratio 1.8 0.0 - 4.4 LAB CHEMISTRY METHOD 10/28/2024 4:17 PM [facility] Blood Venous blood specimen / Unknown Venipuncture / Unknown 10/28/2024 2:36 PM EST 10/28/2024 3:06 PM EST Araceli BOOTHE LAB BLOOD ORDERABLES Fin al Result [facility] [address] [place] [address], * HIV Screening (05/20/2024) [facility] HIV Screening abstracted Historical Provider HEALTH MAINTENANCE Final Result * Hepatitis C Screening (05/20/2024) [facility] [place] Hepatitis C Screening abstracted Historical Provider HEALTH MAINTENANCE Final Result * Cervical Cancer Screening: HPV (07/20/2023) Cervical Cancer Screening: HPV no interpreta tion,abstr acted Historical Provider HEALTH MAINTENANCE Final Result from Last 3 Months or Most Recently Relevant to Health Maintenance Insurance [facility] Advance Directives * Full Code - [...] currently active code status orders. Care Teams Money Room Supervisor Relationship Specialty Start Date End Date Araceli Augustin PA [address] [place] [phone] PCP - General 11/20/24
== END 2025-08-27 09:41 | disposition home or self-care (01) ==
LOC: HO.HKASLDS 09:40
PROVIDERS: Visit Provider Internal Medicine Rheumatology
DX: M05.79 Rheumatoid arthritis with rheumatoid factor of multiple sites without organ or systems involvement (principal); M17.0 Bilateral primary osteoarthritis of knee; Z79.899 Other long term (current) drug therapy
CPT/HCPCS: 36415; 80076; 82565; 85025; 85652; 86140

== ENCOUNTER 2025-09-16 06:26 | Outpatient (REF) | payer OTHER, SELFPAY ==
--- OUTSIDE RECORDS SUMMARY | 2024-08-06 07:23 | XMS_ITS | Encounter Summary ---
Author Organization [facility] Address [address] [place] [address] Care Team Providers Care Public Policy Analyst Name Role Phone Unavailable Primary Care Provider Unavailabl e Encounter Details Date Type Department Care Team (Late st Contact Info) Description 08/06/2024 8:23 AM EDT Hospital Encounter TH HISTORIC ENCOUNTERS EASTERN CONVERSION ONLY Tutu Trivedi MD [address] [place] [address] Social History Tobacco Use Types Packs/Day Years [...] 4:01 PM EDT Karin Vera RN * [place] Suicide Severity Rating Scale (Screener/Recent Self-Report) Question [...] PM EST Office Visit Orthopedic Surgery - [place] [address] [address] Bessy Mesa MD [address] [address] documented as of this encounter Goals Goal Patient Goal Type Associated Problems Recent Progress Patient-Stated? Author OT 6-8 visits General No change(2024 4:47 PM EST) No Nichelle Milian OT Note: 1> Indep HEP (splint weaning, ROM, pain manage, eventual strength) 09/11 Ongoing 2. Dominant R correctional officer strength at least 35# (vs 20initial, vs [...]
--- OUTSIDE RECORDS SUMMARY | 2024-11-04 08:00 | XMS_ITS ---
Author Organization [facility] Address [address] [place] [phone] Care Team Providers Care Rod Bending Machine Operator Name Role Phone IKER ROBLERO PA-C Primary Care Provider Latonya Ramirez Unavailable [phone] Allergies Allergen (clinical drug ingredient) Drug/Non Drug Allergy documented on EMR Reaction Allergy Type Onset Date Status erythromycin ERYTHROMYCIN Skin Rash Drug Allergy A ctive REASON FOR VISIT PAP AFTER PREMARIN USE Encounters Encounter Location Date Provider Diagnosis [address] [address] 11/04/2024 Latonya Lozano Plan Of Treatment No Information Progress Notes * DAWSON OLSONMOONOB:1965 (60 yo F)Acc No.[id number]:11/04/2024 PROGRESS NOTES Patient: MARCUS RODRIGUEZ Appointment Provider: Shannon Lozano M.D. :1965 A ge:59 Y S ex:Female Date:11/04/2024 Address:[address] [place], [place] [id number] Pcp:IKER ROBLERO PA-C Subjective: * Chief Complaints: [...] on cytologic smear of cervix (ASC-US). * Antitank Assault Gunner History: G ravida/ Para 2 /2. S exual activity n ot currently sexually active. L ast Pap Smear: ASCUS, POS HRHPV (Neg 16, 18/45), 03/28/22 LGSIL, POS HRHPV (neg 16, 18/45), 11/21/17 NEG HRHPV, 2011. M ammogram: < 50% density, 02/27/19 < 50% density, 07/26/2017 normal, 07/2016 with follow up Lt Diagnostic 07/09/2016 Bx recommended. A bnormal Pap Smear: [place] Negative, 06/06/22 [place] Negative, 03/2022 LGSIL, + HRHPV. L MP [...] Electronic signature of Pato Lozano MD on 09/16/2025 at 06:30 AM EST Sign off status: Pending * Appointment Provider: Shannon Lozano M.D. Date: Generated for Renay bear/Hilton/Nelsonsmitting on: 11/16/2024 06:30 AM EST
--- OUTSIDE RECORDS SUMMARY | 2024-12-05 05:40 | XMS_ITS ---
Author Organization [facility] Address [address] [place] [phone] Care Team Providers Care Setter Up Name Role Phone IKER ROBLERO PA-C Primary Care Provider Latonya Ramirez Unavailable [phone] Allergies Allergen (clinical drug ingredient) Drug/Non Drug [...] 6-10 Encounters Encounter Location Date Provider Diagnosis [address] [address] 12/05/2024 Latonya Lozano Plan Of Treatment No Information Progress Notes * MIS OLSONOB:1965 (60 yo F)Acc No.[id number]:12/05/2024 PROGRESS NOTES Patient: MARCUS RODRIGUEZ Appointment Provider: Shannon Lozano M.D. :1965 A ge:59 Y S ex:Female Date:12/05/2024 Address:[address] [place] [address] Pcp:IKER ROBLERO PA-C Subjective: * Chief Complaints: [...] on cytologic smear of cervix (ASC-US). * Biztalk Developer History: G ravida/ Para 2 /2. S exual activity n ot currently sexually active. L ast Pap Smear: ASCUS, POS HRHPV (Neg 16, 18/45), 03/28/22 LGSIL, POS HRHPV (neg 16, 18/45), 11/21/17 NEG HRHPV, 2011. M ammogram: < 50% density, 02/27/19 < 50% density, 07/26/2017 normal, 07/2016 with follow up Lt Diagnostic 07/09/2016 Bx recommended. A bnormal Pap Smear: [place] Negative, 06/06/22 [place] Negative, 03/2022 LGSIL, + HRHPV. L MP [...] of Pato Lozano MD on 09/16/2025 at 06:29 AM EST Sign off status: Pending * Appointment Provider: Shannon Lozano M.D. Date: 0 12/05/2024 Generated for Renay bear/Hilton/Shaquille on: 11/16/2024 06:29 AM EST
--- OUTSIDE RECORDS SUMMARY | 2025-02-14 06:00 | XMS_ITS ---
Author Organization [facility] Address [address] [place] [address] Care Team Providers Care Rn Anesthesiology Name Role Phone IKER ROBLERO PA-C Primary Care Provider Unav Latonya Panda Unavailable [phone] REASON FOR VISIT ULTRA - CK OVARIES ? DERMOID ON RT ADNEXA ON X RAY Encounters Encounter Location Date Provider Diagnosis [facility] [employer] [address] 02/14/2025 Latonya Lozano Plan Of Treatment No Information Progress Notes * DAWSON OLSONMOONOB:1965 (60 yo F)Acc No.[id number]:02/14/2025 PROGRESS NOTES Patient: MARCUS RODRIGUEZ Appointment Provider: Shannon Lozano M.D. :1965 A ge:59 Y S ex:Female Date:02/14/2025 Address:[address] [place], [place] [address] Pcp:IKER ROBLERO PA-C Subjective: * Chief Complaints: [...] Lozano M.D. Date: 0 02/14/2025 Generated for Kareeni chema/Hilton/eTransmitting on: 1 11/16/2024 06:29 AM EST
--- OUTSIDE RECORDS SUMMARY | 2025-03-03 08:10 | XMS_ITS ---
Author Organization [facility] Address [address] [place] [address] Care Team Providers Care Roll Handler Name Role Phone IKER ROBLERO PA-C Primary Care Provider Latonya Ramirez Unavailable [phone] Allergies Allergen (clinical drug ingredient) Drug/Non Drug Allergy documented on EMR Reaction Allergy Type Onset Date Status erythromycin ERYTHROMYCIN Skin Rash Drug Allergy A ctive REASON FOR VISIT MED CK Medications Medication SIG (Take, Route, Frequency, Duration) Notes Start Date End Date Status Estradiol 0.0375 MG/24HR 1 patch to skin Transdermal Two times a Week; Duration: 90 days 12/09/2024 Active Prometrium 100 MG 1 capsule at bedtime Orally Once a day; Duration: 90 days 12/09/2024 Active Gabapentin 100 MG TAKE 1 CAPSULE BY MO UT 3 TIMES A DAY Oral; Duration: 30 Days Active Baclofen 10 MG 1 tablet as needed O rally Once a day Active ZyrTEC 10 MG 1 tablet Orally Once a day Active Vitamin D3 25 MCG (1000 UT) as directed Orally Active Turmeric 500 MG as directed Orally Active Escitalopram Oxalate 10 MG Oral; Duration: 30 Days Active Vitamin C 500 MG as directed Orally Active Encounters Encounter Location Date Provider Diagnosis [address] [address] 03/03/2025 Latonya Lozano Plan Of Treatment No Information Progress Notes * MIS OLSONOB:1965 (60 yo F)Acc No.[id number]:03/03/2025 Patient: Bhavna DIORMARCUS Appointment Provider: Shannon Lozano M.D. :1965 A ge:59 Y S ex:Female Date:03/03/2025 Address:[address] [place] [address] Pcp:IKER ROBLERO PA-C Subjective: * Chief Complaints: * 1 . MED CK. * Medical History: A nxiety disorder, unspecified, [...] on cytologic smear of cervix (ASC-US). * Database Specialist History: G ravida/ Para 2 /2. S exual activity n ot currently sexually active. L ast Pap Smear: ASCUS, POS HRHPV (Neg 16, 18/45), 03/28/22 LGSIL, POS HRHPV (neg 16, 18/45), 11/21/17 NEG HRHPV, 2011. M ammogram: < 50% density, 02/27/19 < 50% density, 07/26/2017 normal, 07/2016 with follow up Lt Diagnostic 07/09/2016 Bx recommended. A bnormal Pap Smear: [place] Negative, 06/06/22 [place] Negative, 03/2022 LGSIL, + HRHPV. L MP and menses M mark 01/2017. B irth Control: N one. C olonoscopy 1 1997. B one Density: . * OB History: T otal pregnancies 2 . T otal living children 2 . N VD 2 . * Medications: T aking Baclofen 10 MG Tablet 1 tablet as needed Orally Once a day , Taking ZyrTEC 10 MG Tablet Chewable 1 tablet Orally Once a day , Taking Escitalopram Oxalate 10 MG Tablet Oral , Taking Vitamin C 500 MG Capsule as directed Orally , Taking Turmeric 500 MG Capsule as directed Orally , Taking Vitamin D3 25 MCG (1000 UT) Tablet Chewable as directed Orally , Taking Gabapentin 100 MG Capsule TAKE 1 CAPSULE BY MOUTH 3 TIMES A DAY Oral , Taking Estradiol 0.0375 MG/24HR Patch Twice Weekly 1 patch to skin Transdermal Two times a Week , Taking Prometrium 100 MG Capsule 1 capsule at bedtime Orally Once a day * Allergies: E RYTHROMYCIN: Skin Rash - Allergy. Objective: * Vitals: Assessment: Plan: * Treatment: * Images: Billing Information: * Visit Code: * Procedure Codes: * Electronic signature of Pato Lozano MD on 09/16/2025 at 06:30 AM EST Sign off status: Pending * Appointment Provider: Shannon Lozano M.D. Date: 0 03/03/2025 Generated for Renay bear/[place] on: 1 11/16/2024 06:30 AM EST
--- OUTSIDE RECORDS SUMMARY | 2025-03-06 05:00 | XMS_ITS ---
Author Organization [facility] Address [address] [facility] [address] [place] [address] Care Team Providers Care Touch Up Carver Name Role Phone IKER ROBLERO PA-C Primary Care Provider Latonya Ramirez Unavailable [phone] Allergies Allergen (clinical drug ingredient) Drug/Non Drug [...] Gabapentin 100 MG TAKE 1 CAPSULE BY [facility] 3 TIMES A DAY Oral; Duration: [...] 6-10 Encounters Encounter Location Date Provider Diagnosis [address] [place] [address] 03/06/2025 Latonya Lozano Plan Of Treatment No Information Progress Notes * DAWSON OLSONENDOB:1965 (60 yo F)Acc No.[id number]:03/06/2025 Patient: MARCUS RODRIGUEZ Appointment Provider: Shannon Lozano M.D. :1965 A ge:59 Y S ex:Female Date:03/06/2025 Address:[address] [place], [place] [id number] Pcp:IKER ROBLERO PA-C Subjective: * Chief Complaints: [...] on cytologic smear of cervix (ASC-US). * Allergy Physician History: G ravida/ Para 2 /2. S exual activity n ot currently sexually active. L ast Pap Smear: ASCUS, POS HRHPV (Neg 16, 18/45), 03/28/22 LGSIL, POS HRHPV (neg 16, 18/45), 11/21/17 NEG HRHPV, 2011. M ammogram: Breast Tissue is Almost Entirely Fatty, , 02/27/19 < 50% density, 07/26/2017 normal, 07/2016 with follow up Lt Diagnostic 07/09/2016 Bx recommended. A bnormal Pap Smear: [place] Negative, 06/06/22 [place] Negative, 03/2022 LGSIL, + HRHPV. L MP [...] 03/06/2025 Generated for Renay bear/Hilton/Lambertoitting on: 1 11/16/2024 06:29 AM EST
--- OUTSIDE RECORDS SUMMARY | 2025-09-11 12:30 | XMS_ITS | Encounter Summary ---
Author Organization [facility] Address [address] [place] [address] Care Team Providers Care Bowling Alley Manager Name Role Phone Araceli Augustin Primary Care Provider + Reason for Visit * Therapy (Routine) - Authorized Specialty Diagnoses / Procedures Referred By Corine strange Referred To Contact Occupational Therapy Diagnoses Osteochondrosis of lunate of left wrist Surgery follow-up Bessy Mesa MD Phone: tel: fax: Referral ID Status Reason Start Date Expiration Date Visits Requested Visits Authorized [id number] Authorized Consult and Treat 08/12/2025 08/12/2026 6 6 Encounter Details Date Type Department Care Team (Latest Contact Info) Description 09/11/2025 12:30 PM EST Treatment [facility] Occup[facility] Therapy [address] [phone] Nichelle Milian, OT Osteochondrosis of carpal lunate [...] Progress Notes * Nichelle Milian, OT - 09/11/2025 12:30 PM EST [facility] - Outpatient OCCUPATIONAL THERAPY DAILY TREATMENT NOTE Date: 09/11/2025 Visit Number: 4 Patient Name: María Phillips : 1965 Age: 60 y.o. Gender: female Diagnosis: ICD-10-CM ICD-9-CM 1. 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 Precautions: orders for ROM and strengthening SUBJECTIVE Subjective Report: Called Dr Mesa again to report that the pain is unbearable, there has to be something else going on b/c I hurt everywhere Pain: R wrist 06/15 OBJECTIVE R licensed pesticide applicator =27# AROM wrist ext=52, flex =25 TREATMENT INTERVENTION Fluidotherapy for desensitization and wrist ROM w/ soothing effects of heat Gentle AAROM wrist flex/ext/circumduction Initiated light licensed pesticide applicator strength w/ yellow theraputty; pt reported increased pain after 30 sec. Issuedand advised can use to tolerance/should avoid increasing pain further Pain Reassessment: remained elevated Assessment/Response To Treatment: Difficult to advance pt at this point d/t high resting pain levels She is indep w/ self-AAROm of wrist and has licensed pesticide applicator strength HEP if/when tolerates Patient Education: Education provided: Yes Education Provided To: Patient utilizing Explanation and Demonstration mode(s) of education Response to Education: agreeable to POC/HEP PLAN POC Development/Review: Other: defer addtl f/u's at this time d/t persistent elevated pain levels, pt awaiting feedback from referring MD re pain manage as well as an MRI; Participants: Patient Equipment Provided: theraputty level 1 GOALS Goals Addressed This Visit's Progress OT 6-8 visits No change 1> Indep HEP (splint weaning, ROM, pain manage, eventual strength) 09/11 Ongoing 2. Dominant R licensed pesticide applicator strength at least 35# (vs 20initial, vs 47 L hand) 09/11 In progress to 27 currently 3. R wrist ext AROM at least 55 w/ tolerance for weightbearing during sit to stand 09/11 Progress noted to 52 4. R wrist flex AROM at least 45 11/6 Cont goal, currently limited 25 5. Reported tolerance for home manage/work duties of mod resistance not exceed 2/10 pain 11/6 Not met: pain level 8/10 Total Treatment Time: 30 Documentation completed by Nichelle Milian OT documented in this encounter Plan of Treatment Upcoming Encounters Date Type Department Care Team (Late st Contact Info) Description 09/23/2025 3:45 PM EST Office Visit Orthopedic Surgery - [place] 175 [facility] [address] [place] [address] Bessy Mesa MD 175 [facility] [address] [place] [address] documented as of this encounter Goals Goal Patient Goal Type Associated Problems Recent Progress Patient-Stated? Author OT 6-8 visits General No change(2024 4:47 PM EST) No Nichelle Milian OT Note: 1> Indep HEP (splint weaning, ROM, pain manage, eventual strength) 11/ Ongoing 2. Dominant R licensed pesticide applicator strength at least 35# (vs 20initial, vs 47 L hand) 11 Not met, to 27 currently 3. R wrist ext AROM at least 55 w/ tolerance for weightbearing during sit to stand / Progress noted to 52 4. R wrist flex AROM at least 45 11/6 Not met, currently limited 25 5. 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
--- OUTSIDE RECORDS SUMMARY | 2025-09-15 15:45 | XMS_ITS | Encounter Summary ---
Author Organization [facility] Address [address] [place] [address] Care Team Providers Care Border Patrol Agent Name Role Phone Araceli Augustin Primary Care Provider + Reason for Visit * Reason Comments Follow-up Encounter Details Date Type Department Care Team ([facility] st Contact Info) Description 09/15/2025 3:45 PM EST Office Visit Orthopedic Surgery - [place] [address] [address] Bessy Mesa MD [address] [phone] Avascular necrosis of lunate bone of right [...] urgent visit. She had contacted us through [email or web address]. She had worsening wrist pain enough where [...] in the month for an MRI at [place]. This was ordered by her release of information clerk. Patient was just started on HRT therapy [...] they can move it up over at [place]. If they cannot maybe we can get it scheduled here at [facility]. I did offer the patient a another [...] osteoarthritis of left knee (10/03/2023), Rheumatoid arthritis ([facility] V24,[facility] V28) (12/25/2020), Throat pain, and Thyroid nodule [...] PM EST Office Visit Orthopedic Surgery - [place] 175 [facility] [address] [place] [address] Bessy Mesa MD 175 [facility] 140 [place] [address] documented as of this encounter Goals Goal Patient Goal Type Associated Problems Recent Progress Patient-Stated? Author OT 6-8 visits General No change(2024 4:47 PM EST) No Nichelle Milian OT Note: 1> Indep HEP (splint weaning, ROM, pain manage, eventual strength) 09/11 Ongoing 2. Dominant R camp head counselor strength at least 35# (vs 20initial, vs [...] documented as of this encounter Care Teams Border Patrol Agent Relationship Specialty Start Date End Date Araceli Augustin PA [address] [place] [phone] PCP - General 11/20/24 documented as of this encounter
--- NOTE | ~2025-09-16 | FL_ITS ---
EXAMINATION: XR FLUOROSCOPY WITH IMAGES CLINICAL INFORMATION: Sacrococcygeal disorder COMPARISON: X-ray SI joints 01/21/2025 TECHNIQUE: Fluoroscopy time: 36 seconds DAP: 10.6 mGycm2 Images: 4 FINDINGS: Fluoroscopy provided for procedure. There is a needle projected along bilateral SI joints, with contrast injection. FL/FL guidance in treatment room IMPRESSION: Fluoroscopy provided for procedure. See procedure report for details. Electronically signed by: Will Pappas MD 09/17/2025 03:07 PM [facility]
--- OUTSIDE RECORDS SUMMARY | 2025-09-16 06:28 | XMS_ITS | Encounter Summary ---
Author Organization [facility] Address [address] [place] [address] Care Team Providers Care Sales Representative [employer] Name Role Phone Araceli Augustin Primary Care Provider + Encounter Details Date Type Department Care Team ([facility] st Contact Info) Description 08/06/2025 Results Follow-Up Gastroenterology - [place] 175 [facility] 175 [facility] 200 [place] [address] Gia Lance, NICOLE 299 [facility] [address] [place] [address] Social History Tobacco Use Types Packs/Day Years [...] Author No 07/08/2025 4:01 PM EDT Karin Morotn RN * Do you have serious difficulty [...] 3:45 PM EST Office Visit Orthopedic Surgery [facility] 175 [facility] 140 [place] [phone] Bessy Mesa MD 175 [facility] 140 [place] [phone] documented as of this encounter Visit Diagnoses Not on filedocumented in this encounter Care Teams Sales Representative [employer] Relationship Specialty Start Date End Date Araceli Augustin PA [address] [place] [phone] PCP - General 11/20/24 documented as of this encounter
--- OUTSIDE RECORDS SUMMARY | 2025-09-16 06:28 | XMS_ITS | Clinical Summary ---
Author Organization [facility] Address [address] [place] [phone] Phone Care Team Providers Care Bread Dumper Name Role Phone Vee Allan MD Primary [...] patient's age to complete this topic IPV VACCINES Aged Out No longer eligi ble based on patient's age to complete this topic MENINGOCOCCAL VACCINES (ACWY) Aged Out No longer eligible based on patient's age to complete this topic MENINGOCOCCAL VACCINES (B) Aged Out N o longer eligible based on patient's age to complete this topic Medical Devices Not on file Care Teams Bread Dumper Relationship Specialty Start Date End Date Vee Allan MD [address] [place] [phone] PCP - General Internal Medicine 09/01/20 Additional Source Comments The information contained in this document represents components of the legal health record. It is not the complete legal health record.[facility]
--- OUTSIDE RECORDS SUMMARY | 2025-09-16 06:29 | XMS_ITS | Encounter Summary ---
Author Organization [facility] Address [address] [place] [address] Care Team Providers Care Plant Tour Guide Name Role Phone Araceli Augustin Primary Care Provider + Reason for Visit * Reason Onset Date Comments My chart message 09/15/2025 Encounter Details Date Type Department Care Team ([facility] st Contact Info) Description 09/15/2025 Telephone Orthopedic Surgery - [place] [address] 175 [facility] 250 [place] [address] Bessy Mesa MD 175 [facility] [address] [place] [phone] Social History Tobacco Use Types Packs/Day Years [...] Notes * Bessy Mesa MD - 09/15/2025 5:09 PM EST Patient came in this afternoon for evaluation * Yary Herbert - 09/15/2025 11:23 AM EST Patient is calling wants to be sure that you see her 2 request in her My chart messsages. Could you please put another generalized note in the portal for September 09. I forgot to ask when you called last night. Thank you I need this letter today please or I will be disciplined at work. Thank you States she is willing to be seen again if needed. Please call patient with any questions @ [phone]. Thanks. documented in this encounter Plan of Treatment Upcoming Encounters Date Type Department Care Team (Late st Contact Info) Description 09/23/2025 3:45 PM EST Office Visit Orthopedic Surgery - [place] 175 [facility] 140 [place] [address] Bessy Mesa MD 175 [facility] [address] [place] [address] documented as of this encounter Goals Goal Patient Goal Type Associated Problems Recent Progress Patient-Stated? Author OT 6-8 visits General No change(2024 4:47 PM EST) No Nichelle Milian, OT Note: 1> Indep HEP (splint weaning, ROM, pain manage, eventual strength) 09/11 Ongoing 2. Dominant R binding printer strength at least 35# (vs 20initial, vs [...] on filedocumented in this encounter Care Teams Plant Tour Guide Relationship Specialty Start Date End Date Araceli Augustin PA 299 [facility] 234 [place] [phone] PCP - General 11/20/24 documented as of this encounter
--- OUTSIDE RECORDS SUMMARY | 2025-09-16 06:29 | XMS_ITS | Clinical Summary ---
Author Organization [facility] Address [address] [place] [address] Phone Care Team Providers Care Records Management Coordinator Name Role Phone Araceli Augustin Primary [...] mouth 1 (one) time each day. Active lactulose (CHRONULAC) solution Take 15 mL (10 g total) by mouth 2 (two) times a day. 2700 mL 5 11/30/19 26 Active esomeprazole (NexIUM) [address] capsule Take 1 capsule (40 mg total) by mouth 1 (one) time each day before breakfast. Do not open capsule. 30 each 11 5 09/15/20 25 Discontinue d(Therapy completed) dicyclomine (BENTYL) 20 mg tablet Take 1 tablet (20 mg total) by mouth 4 (four) times a day if needed (Abdominal pain). 120 each 5 08/27/20 25 sucralfate (CARAFATE) 1 gram tablet Take 1 tablet (1 g total) by mouth 4 (four) times a day (before meals and nightly). 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 Phillips describes increasing issues with her lower back and legs. The lumbar CT from [facility] show degenerative disc disease but not stenosis. Her description of paresthesias and leg shaking raise concerns for stenosis. Her workup at the [facility] ER did not correlate with cauda equina syndrome. She is now awaiting a lumbar spine MRI at [place]. I be happy to review that once [...] this, is currently seeing 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 (CMS/HCC V24, CMS/HCC V28) (Primary Dx) 09/15/2025 Telephone Orthopedic Surgery [facility] [address] [phone] Bessy Mesa MD 09/11/2025 12:30 PM EST [facility] [address] [phone] Nichelle Milian, NORAH 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) 09/11/2025 Telephone Orthopedic Surgery [facility] [address] [phone] Bessy Mesa MD 09/04/2025 12:30 PM EDT [facility] [address] [phone] Shanell Bowen COTA/Ulices 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) 08/28/2025 1:30 PM EDT [facility] [address] [phone] Nichelle Milian, OT 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) 08/21/2025 12:00 PM EDT Evaluation [facility] Occupational Therapy 175 [facility] [address] [place] [phone] Nichelle Milian OT 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) 08/14/2025 3:30 PM EDT Office Visit Orthopedic Surgery [facility] 250 175 [facility] [address] [place] [phone] Von Mcclure MD Knee pain (Primary Dx); Post-traumatic osteoarthritis of left knee; Primary osteoarthritis of right knee 08/13/2025 Telephone Gastroenterology [facility] 175 [facility] 175 [facility] [address] [place] [phone] Gia Lance NP 08/12/2025 3:45 PM EDT Office Visit Orthopedic Surgery [facility] 175 [facility] [address] [place] [phone] Bessy Mesa MD Wrist pain (Primary Dx); Osteochondrosis of lunate of right wrist; Surgery follow-up 08/06/2025 Results Follow-Up Gastroenterology [facility] 175 [facility] 175 [facility] [address] [place] [phone] Gia Lance NP 08/05/2025 Telephone Orthopedic Surgery [facility] 250 175 [facility] [address] [place] [phone] Von Mcclure MD 08/04/2025 Telephone Orthopedic Surgery [facility] 250 175 [facility] [address] [place] [phone] Bessy Mesa MD 07/29/2025 3:45 PM EDT Office Visit Orthopedic Surgery [facility] 175 [facility] [address] [place] [phone] Bessy Mesa MD Osteochondrosis of lunate of right wrist (Primary Dx); Surgery follow-up 07/29/2025 Telephone Orthopedic Surgery [facility] 250 175 [facility] [address] [place] [phone] Von Mcclure MD 07/28/2025 2:40 PM EDT Office Visit Gastroenterology [facility] [address] [facility] [address] [place] [phone] Gia Lance NP Erosive gastropathy (Primary Dx); Abdominal pain, chronic, right upper quadrant; History of Helicobacter pylori infection; Esophageal dysmotility; Tobacco use disorder 07/24/2025 8:40 AM EDT Consult Endocrinology [address] [phone] Marian Turner MD Hypothyroidism (acquired) (Primary Dx); Hyperthyroidism 07/24/2025 Telephone Orthopedic Surgery [facility] 175 [facility] [address] [place] [phone] Bessy Mesa MD 07/23/2025 3:30 PM EDT Office Visit Orthopedic Surgery [facility] 175 [facility] [address] [place] [phone] Nichelle Archibald PA Surgery follow-up (Primary Dx) 07/23/2025 Telephone Orthopedic Surgery [facility] 250 175 [facility] [address] [place] [phone] Jacquelyn Sow 07/16/2025 1:10 PM EDT Anesthesia Event [facility] OR [address] [place] [phone] Magda Siegel MD Chang, Ling, CRNA 07/16/2025 12:30 PM EDT - 07/16/2025 2:00 PM EDT Surgery [facility] OR [address] [place] [phone] Bessy Mesa MD core decompression right distal radius [38629 (CPT )] 07/16/2025 10:33 AM EDT - 07/16/2025 4:05 PM EDT Hospital Encounter [facility] [place] [address] [place] [phone] Bessy Mesa MD 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 (CMS/HCC V24, CMS/HCC V28) Discharge Disposition: Home or Self Care 07/16/2025 7:20 AM EDT - 07/16/2025 11:59 PM EDT Hospital Encounter [facility] Xray [address] [place] [phone] Pain Discharge Disposition: Home or Self Care 07/16/2025 Telephone Gastroenterology [facility] 175 [facility] 175 [facility] [address] [place] [phone] Gia Lance NP 07/15/2025 Telephone Orthopedic Surgery [facility] [address] [phone] Bessy Mesa MD 07/08/2025 6:02 PM EDT - 07/08/2025 10:10 PM EDT Emergency [facility] Emergency [address] [place] [phone] Jalil Steven MD Goebel, Mathew, MD Spinal stenosis of lumbar region, unspecified whether neurogenic claudication present (Primary Dx) Discharge Disposition: Home or Self Care 07/08/2025 3:15 PM EDT Consult Orthopedic Surgery [facility] 175 [facility] [address] [place] [phone] Bessy Mesa MD Osteochondrosis of lunate of left wrist (Primary Dx) 06/26/2025 Telephone Orthopedic Surgery [facility] [address] [phone] Siria Palumbo 06/25/2025 8:30 AM EDT Ancillary Procedure [facility] [address] [facility] [address] [place] [phone] Dyspnea on exertion 06/25/2025 Telephone Orthopedic Surgery [facility] [address] [phone] Bessy Mesa MD 06/20/2025 8:00 AM EDT Office Visit Orthopedic Surgery [facility] 175 [facility] [address] [place] [phone] Bessy Mesa MD Osteochondrosis of lunate of left wrist (Primary Dx) 06/20/2025 Telephone Orthopedic Surgery - [place] 250 175 [facility] [address] [place] [address] Bessy Mesa MD 06/19/2025 Telephone Gastroenterology [facility] [address] [facility] [address] [place] [address] Gia Lance, NICOLE from Last 3 Months Immunizations Immunization Administration Dates Next Due Hepatitis B (Jleszuw-P-Gajqi , Recombivax HB-Adult) 19yo and older 02/21/2022,01/17/2022 [...] 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 [facility] WRIST SURGERY 11/06/2021 - 11/05/2022 Left [...] 0.5 48.9 Started: 1974 Smokeless Tobacco: Never Tobacco Cessation:Ready [...] PM EST Office Visit Orthopedic Surgery - [place] 175 [facility] [address] [place] [phone] Bessy Mesa MD 175 [facility] [address] [place] [address] Health Maintenance Due Date Last Done Comments [...] eventual strength) 09/11 Ongoing 2. 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 strength at least 35# (vs 20initial, [...] pain 09/11 Not met: pain level 8/10 Procedures Procedure Name Priority Date/Time Associated Diagnosis Comments XR WRIST 3+ VIEWS RIGHT Routine 09/15/2025 3:58 PM EST Right wrist pain XR KNEE 4+ VIEWS BILAT Routine 08/14/2025 [...] LMA(NO CHARGE) Routine 07/16/2025 1:23 PM EDT [place] OSTEOTOMY RADIUS DISTAL THIRD 07/16/2025 1:09 PM [...] Diarrhea, unspecified type Change in bowel habits MG MAMMO DIGITAL SCREENING W SG BILAT [...] 3+ Views Right (09/15/2025 3:58 PM EST) Only the most recent of2 [...] XR PROCEDURES Final Resul t * XR Knee 4+ Views bilat (08/14/2025 [...] IMG XR PROCEDURES Fin al Result * Helicobacter pylori antigen, stool (07/30/2025 9:58 AM EDT) Helicobacter Pylori Ag Not detected Not detected 08/05/2025 2:52 PM EDT [facility] Comment: This test was performed at [facility] using a chemiluminescent immunoassay [...] Food and Drug Administration. Test performed at [facility], [address] , [place] [address] Krystina Austin MD, PhD - Transition Social Worker Stool Rectum structure / Unknown Non-blood Collection / Unknown 07/30/2025 9:58 AM EDT 07/30/2025 9:58 AM EDT Gia Lance NP LAB BODY FLUIDS AND STOOLS ROD ESCALANTE Final Result [facility] [address] [place] [address] * Thyroid stimulating hormone with reflex to free t4 and free t3 (07/24/2025 9:32 AM EDT) TSH 1.20 0.40 - 4.00 mcIU/mL LAB CHEMISTRY METHOD 07/24/2025 12:39 PM EDT [facility] Blood Venous blood specimen / Unknown Venipuncture / Unknown 07/24/2025 9:32 AM EDT 07/24/2025 9:32 AM EDT Marian Turner MD LAB BLOOD ORDERABLES Final Res ult Performing Organization Address City/[facility]/ZIP Co de Phone Number [facility] [address] [place] [address], * Thyroid stimulating immunoglobulin (07/24/2025 9:32 AM EDT) Thyroid Stimulating Immunoglobulin <0.10 <0.10 IU/L 07/28/2025 7:54 PM EDT [facility] Comment: Thyroid stimulating immunoglobulins (TSI) concentrations greater than or equal to (>=) 0.55 IU/L have a clinical sensitivity of at least 98.6%, and a clinical specificity of at least 98.5%, for the differential diagnosis of Graves' Disease. TSI concentrations for patients with other thyroid or autoimmune diseases range from 0.11 to 0.39 IU/L. Test performed at [facility], [address] [place] [address] Krystina Austin MD, PhD - Transition Social Worker Blood Venous blood specimen / Unknown Venipuncture / Unknown 07/24/2025 9:32 AM EDT 07/24/2025 9:32 AM EDT us Marian Turner MD LAB BLOOD ORDERABLES Final Res ult Performing Organization Address [facility]/ZIP Co de Phone Number [facility] [address] [place] [address] * Triiodothyronine free (07/24/2025 9:32 AM EDT) T3, Free 316 230 - 420 pcg/dL LAB CHEMISTRY METHOD 07/24/2025 12:38 PM EDT [facility] Blood Venous blood specimen / Unknown Venipuncture / Unknown 07/24/2025 9:32 AM EDT 07/24/2025 9:32 AM EDT us Marian Turner MD LAB BLOOD ORDERABLES Final Res ult [facility] [address] [place] [address], [place] [phone] * Thyroxine free (07/24/2025 9:32 AM EDT) Free T4 1.16 0.70 - 1.80 ng/dL LAB CHEMISTRY METHOD 07/24/2025 12:38 PM EDT [facility] Blood Venous blood specimen / Unknown Venipuncture / Unknown 07/24/2025 9:32 AM EDT 07/24/2025 9:32 AM EDT us Marian Turner MD LAB BLOOD ORDERABLES Final Res ult [facility] [address] [place] [address], [place] [phone] * Tissue exam (07/16/2025 1:50 PM EDT) Final Diagnosis Bone, Right, Distal Radius-decomp ression: -FRAGMENTS OF TRABECULAR BONE WITH NO SPECIFIC PATHOLOGIC CHANGE 07/18/2025 12:03 PM EDT [facility] Comment Intact specimen with articular cartilage is preferred specimen for evaluating avascular necrosis. 07/18/2025 12:03 PM EDT [facility] Gross Description A. Wrist, Right, Distal Radius: Labeled right dis wrist R . Received in formalin is a 1.4 x 0.8 x 0.2 cm aggregate of hard, rocha-red bone fragments which are wrapped in paper and submitted in toto in one cassette, multiple pieces, following decalcificati on. TS 07/18/2025 12:03 PM EDT [facility] Disclaimer Unless otherwise specified, all tissue is 10% NB formalin fixed and paraffin embedded. 07/18/2025 12:03 PM EDT [facility] Bone Structure of right wrist region / Unknown 07/16/2025 1:50 PM EDT 07/16/2025 3:19 PM EDT Bessy Mesa MD LAB PATHOLOGY ORDERABLES Nataliia vasquez Result [facility] [address] [place] [address], * (ABNORMAL) Culture anaerobic with gram stain (07/16/2025 1:40 PM EDT) Culture, Anaerobic No Growth of Anaerobes. 07/24/2025 8:51 AM EDT [facility] Culture, Anaerobic Staphylococcus warneri(A) ABBEY 07/24/2025 8:51 AM EDT [facility] Comment: SPARSE Beta-lactamase negative The organism value for this result has been updated. These results have been appended to the previously preliminary verified report. Edited result: Previously reported as Gram Positive Cocci on 07/20/2025 at 0832 EDT. Culture, Anaerobic Streptococcus viridans group(A) ABBEY 07/24/2025 8:51 AM EDT [facility] Comment: SPARSE Susceptibility testing [...] species,not anthracis(A) ABBEY 07/24/2025 8:51 AM EDT [facility] Comment: SPARSE The organism value for this result has been updated. These results have been appended to the previously preliminary verified report. Gram Stain Result Refer to Aerobic culture for gram stain results. 07/24/2025 8:51 AM EDT [facility] Swab Structure of right [...] OR DERABLES Final Result Performing Organization Address [facility]/RUST de Phone Number [facility] [address] [place] [address], [place] [phone] * Culture wound deep (07/16/2025 1:40 PM EDT) Culture, Wound No growth at 3 days 07/19/2025 10:14 AM EDT [facility] Gram Stain Result No polymorphonuclear leukocytes, No epithelial cells, and No organisms noted 07/19/2025 10:14 AM EDT [facility] Swab Structure of right wrist region / Unknown 07/16/2025 1:40 PM EDT 07/16/2025 2:37 PM EDT us Bessy Mesa MD LAB MICROBIOLOGY - GENERAL OR DERABLES Final Result Performing Organization Address [facility] Co de Phone Number [facility] [address] [place] [address], [place] [phone] * TH AN LMA(NO CHARGE) (07/16/2025 1:23 [...] spinal canal stenosis T12-L1 through L4-L5, and rqcz-[id number]-[id number] bilateral L4-L5 neural foraminal stenosis. 2. Unremarkable [...] spinal canal stenosis from T12-L1 through L4-L5. Jbzq-js-lwcewfij bilateral L4-L5 neural foraminal stenosis. Unremarkable appearance [...] spinal canal stenosis from T12-L1 through L4-L5. Shuz-fz-bjcwxrgq bilateral L4-L5 neural foraminal stenosis. Unremarkable appearance of the conus medullaris and cauda equina. Paraspinous musculature intact. IMPRESSION: 1. Multilevel degenerative changes of the lumbar spine as described contributing to mild multifocal spinal canal stenosis T12-L1 through L4-L5, and [id number] bilateral L4-L5 neural foraminal stenosis. 2. Unremarkable appearance of the conus medullaris and cauda equina. This document has been electronically signed by: James Sheth MD on 07/08/2025 21:13:43 Jalil Steven MD [facility] [place]ED[place] Final Result * (ABNORMAL) CBC auto differential (07/08/2025 7:06 PM EDT) WBC 7.5 4.8 - 10.8 K/mcL LAB HEMETOLOGY METHOD 07/08/2025 7:22 PM EDT [facility] RBC 4.20 3.80 - 4.80 M/mcL LAB HEMETOLOGY METHOD 07/08/2025 7:22 PM EDT [facility] Hemoglobin 13.8 11.5 - 16.0 g/dL LAB HEMETOLOGY METHOD 07/08/2025 7:22 PM EDT [facility] Hematocrit 40.7 35.0 - 47.0 % LAB HEMETOLOGY METHOD 07/08/2025 7:22 PM EDT [facility] MCV 97.4 79.0 - 98.0 FL LAB HEMETOLOGY METHOD [facility] MCH 33.0(H) 27.0 - 32.0 pcg LAB HEMETOLOGY METHOD 07/08/2025 7[facility] MCHC 33.9 32.0 - 37.0 g/dL LAB HEMETOLOGY METHOD 07/08/2025 7:[facility] RDW 12.7 11.0 - 15.0 % LAB HEMETOLOGY METHOD 07/08/2025 7:[facility] Platelets 311 130 - 400 K/mcL LAB HEMETOLOGY METHOD 07/08/2025 7:22 PM [facility] MPV 9.3 7.0 - 11.0 FL LAB HEMETOLOGY METHOD 07/08/2025 7:[facility] NRBC 0.0 <1.0 % LAB HEMETOLOGY METHOD 07/08/2025 7:22 PM [facility] NRBC Absolute 0.00 <0.10 K/mcL LAB HEMETOLOGY METHOD 07/08/2025 7:22 PM [facility] Neutrophils Relative 49.3 % LAB HEMETOLOGY METHOD 07/08/2025 7:22 PM [facility] Lymphocytes Relative 39.4 % LAB HEMETOLOGY METHOD 07/08/2025 7:22 PM [facility] Monocytes Relative 7.6 % LAB HEMETOLOGY METHOD 07/08/2025 7:22 PM [facility] Eosinophils Relative 2.9 % LAB HEMETOLOGY METHOD 07/08/2025 7:22 PM [facility] Basophils Relative 0.5 % LAB HEMETOLOGY METHOD 07/08/2025 7:22 PM [facility] Immature Granulocytes Relative 0.3 % LAB HEMETOLOGY METHOD 07/08/2025 7:22 PM EDT [facility] Neutrophils Absolute 3.68 1.50 - 7.00 K/mcL LAB HEMETOLOGY METHOD 07/08/2025 7:22 PM EDT [facility] Lymphocytes Absolute 2.94 1.00 - 5.00 K/mcL LAB HEMETOLOGY METHOD 07/08/2025 7:22 PM EDT [facility] Monocytes Absolute 0.57 0.20 - 1.00 K/mcL LAB HEMETOLOGY METHOD 07/08/2025 7:22 PM EDT [facility] Eosinophils Absolute 0.22 0.00 - 0.50 K/mcL LAB HEMETOLOGY METHOD 07/08/2025 7:22 PM EDT [facility] Basophils Absolute 0.04 0.00 - 0.20 K/mcL LAB HEMETOLOGY METHOD 07/08/2025 7:22 PM EDT [facility] Immature Granulocytes Absolute 0.02 0.00 - 0.03 K/mcL LAB HEMETOLOGY METHOD 07/08/2025 7:22 PM EDT [facility] Blood Venous blood specimen / Unknown Venipuncture / Unknown 07/08/2025 7:06 PM EDT 07/08/2025 7:15 PM EDT us Juan F Doshi MD LAB BLOOD ORDERABLES Final Result [facility] [address] [place] [address], * Lipase (07/08/2025 7:06 PM EDT) Lipase 19 13 - 75 unit/L LAB CHEMISTRY METHOD 07/08/2025 7:54 PM EDT [facility] Blood Venous blood specimen / Unknown Venipuncture / Unknown 07/08/2025 7:06 PM EDT 07/08/2025 7:15 PM EDT Juan F Doshi MD LAB BLOOD ORDERABLES Final Result [facility] [address] [place] [address], [place] [phone] * Comprehensive metabolic panel (07/08/2025 7:06 PM EDT) Sodium 140 133 - 145 mmol/L LAB CHEMISTRY METHOD 07/08/2025 7:54 PM T [facility] Potassium 4.1 3.5 - 5.5 mmol/L LAB CHEMISTRY METHOD 07/08/2025 7:54 PM [facility] Chloride 104 96 - 110 mmol/L LAB CHEMISTRY METHOD 07/08/2025 7:54 PM [facility] CO2 29 21 - 32 mmol/L LAB CHEMISTRY METHOD 07/08/2025 7:54 PM [facility] Anion Gap 7 3 - 11 LAB CHEMISTRY METHOD 07/08/2025 7:54 PM [facility] Glucose 81 70 - 100 mg/dL LAB CHEMISTRY METHOD 07/08/2025 7:54 PM [facility] BUN 8 5 - 25 mg/dL LAB CHEMISTRY METHOD 07/08/2025 7:54 PM [facility] Creatinine 0.81 0.50 - 1.10 mg/dL LAB CHEMISTRY METHOD 07/08/2025 7:54 PM [facility] eGFR 84 >=60 mL/min/1. 73m2 LAB CHEMISTRY METHOD 07/08/2025 7:54 PM [facility] Comment:Calculation based on the Chronic Kidney Disease Epidemiology Collaboration (CKD-EPI) equation refit without adjustment for race. BUN/Creatinine Ratio 9.9 LAB CHEMISTRY METHOD 07/08/2025 7:54 PM [facility] Calcium 9.8 8.5 - 10.5 mg/dL LAB CHEMISTRY METHOD 07/08/2025 7:54 PM EDT [facility] AST (SGOT) 23 10 - 42 unit/L LAB CHEMISTRY METHOD 07/08/2025 7:54 PM EDT [facility] ALT (SGPT) 29 10 - 60 unit/L LAB CHEMISTRY METHOD 07/08/2025 7:54 PM EDT [facility] Alkaline Phosphatase 102 42 - 121 unit/L LAB CHEMISTRY METHOD 07/08/2025 7:54 PM EDT [facility] Total Protein 6.8 6.0 - 8.0 g/dL LAB CHEMISTRY METHOD 07/08/2025 7:54 PM EDT [facility] Albumin 4.0 3.2 - 5.0 g/dL LAB CHEMISTRY METHOD 07/08/2025 7:54 PM EDT [facility] Total Bilirubin 0.5 0.0 - 1.4 mg/dL LAB CHEMISTRY METHOD 07/08/2025 7:54 PM EDT [facility] Blood Venous blood specimen / Unknown Venipuncture / Unknown 07/08/2025 7:06 PM EDT 07/08/2025 7:15 PM EDT us Juan F Doshi MD LAB BLOOD ORDERABLES Final Result [facility] [address] [place] [address], [place] [phone] * (ABNORMAL) TRANSTHORACIC ECHOCARDIOGRAM (TTE) COMPLETE (06/25/2025 9:10 AM EDT) Left Atrium Minor Ewing 4.9 cm CV PACS Left Atrium Major Ewing 4.9 cm CV PACS LA Area Sys [...] Volume 57 mL CV PACS MV Deceleration Reagan 4.1 m/s2 CV PACS E Wave Deceleration [...] PROCEDURES Final Result * [place]ONOSCOPY [place]est[place] - [facility] [place] [facility] ENDOSCOPY (06/05/2025 12:23 PM EDT) Anatomical Region [...] previously scheduled. Narrative 06/05/2025 12:27 PM EDT [facility] Patient Name: María Phillips Procedure Date: [...] verified by the physician, the nurse, the hog tender and the satellite tv technician installer in the pre-procedure area in the endoscopy [...] not prolapse). Procedure Code(s): --- Professional --- 97079, Colonoscopy, flexible; with biopsy, single or multiple Diagnosis Code(s): --- Professional --- R19.7, Diarrhea, unspecified CPT copyright 2020 [employer]. All rights reserved. The codes documented in this report are preliminary and upon title manager review may be revised to meet current compliance requirements. Melba Bunn MD 06/05/2025 12:27:19 PM This report has been signed electronically.Melba Bunn MD Number of Addenda: 0 Note Initiated On: 06/05/2025 11:57 AM Scope Withdrawal Time: 0 hours 6 minutes 22 seconds Scope In: 12:10:33 PM Scope Out: 12:23:27 PM Endoscopy Department at [facility] - [address] [place] [phone] Procedure Note Melba Bunn MD - 06/05/2025 [facility] GI Patient Name: María Phillips Procedure Date: [...] the physician, the nurse, theanesthetist and the satellite tv technician installer in the pre-procedure area in the endoscopy [...] not prolapse). Procedure Code(s): --- Professional --- 09049, Colonoscopy, flexible; with biopsy, singleor multiple Diagnosis Code(s): --- Professional --- R19.7, Diarrhea, unspecified CPT copyright 2020 [employer]. All rights reserved. The codes documented in this report are preliminary and upon title manager reviewmay be revised to meet current compliance requirements. Melba Bunn MD 06/05/2025 12:27:19 PM This report has been signed electronically.Melba Bunn MD Number of Addenda: 0 Note Initiated On: 06/05/2025 11:57 AM Scope Withdrawal Time: 0 hours 6 minutes 22 seconds Scope In: 12:10:33 PM Scope Out: 12:23:27 PM Endoscopy Department at [facility] - [address] [place] [phone] IMPRESSION: - The examined portion of the [...] MD GI~PROCEDURE ORDERABLES Fin al Result * MG Mammo Digital Screening w Sg bilat (02/05/2025 10:40 AM EDT) Anatomical Region Laterality Modality Breast Bilateral Mammography 02/06/2025 9:43 AM EDT Impressions 02/06/2025 9:45 AM EDT No evidence of breast malignancy. BI-RADS CATEGORY: 1 - NEGATIVE RECOMMENDATION: Screening bilateral mammogram is recommended in 1 year. Mammo Location: [facility], [address] [place] [address], [id number], . -------- FINAL REPORT -------- Dictated By: Stefani Zamora Dictated Date: 02/06/2025 09:43 ET Assigned Physician: Stefani Zamora Reviewed and Electronically Signed By: Stefani Zamora Signed Date: 02/06/2025 09:45 ET Workstation ID: [id number] Transcribed By: Self Edit Transcribed Date: 02/06/2025 [...] year. Mammo Location: [facility], [address] [place] [address], [address], . -------- FINAL REPORT -------- Dictated By: Stefani Zamora Dictated Date: 02/06/2025 09:43 ET Assigned Physician: Stefani Zamora Reviewed and Electronically Signed By: Stefani Zamora Signed Date: 02/06/2025 09:45 ET Workstation ID: [id number] Transcribed By: Self Edit Transcribed Date: 02/06/2025 09:43 ET us Araceli BOOTHE IMG BI PROCEDURES Final Result * Lipid panel with reflex to direct LDL (10/28/2024 2:36 PM EST) Cholesterol 196 0 - 200 mg/dL LAB CHEMISTRY METHOD 10/28/2024 4:17 PM EST [facility] Triglycerides 51 0 - 150 mg/dL LAB CHEMISTRY METHOD 10/28/2024 4:17 PM EST [facility] HDL 111 >=40 mg/dL LAB CHEMISTRY METHOD 10/28/2024 4:17 PM EST [facility] LDL Calculated 75 0 - 100 mg/dL LAB CHEMISTRY METHOD 10/28/2024 4:17 PM EST [facility] VLDL Cholesterol Corby 10.2 mg/dL LAB CHEMISTRY METHOD 10/28/2024 4:17 PM EST [facility] Non HDL Chol. (LDL+VLDL) 85 <145 mg/dL LAB CHEMISTRY METHOD 10/28/2024 4:17 PM EST [facility] Chol/HDL Ratio 1.8 0.0 - 4.4 LAB CHEMISTRY METHOD 10/28/2024 4:17 PM [facility] Blood Venous blood specimen / Unknown Venipuncture / Unknown 10/28/2024 2:36 PM EST 10/28/2024 3:06 PM EST us Araceli BOOTHE LAB BLOOD ORDERABLES Fin al Result [facility] [address] [place] [address], * HIV Screening (05/20/2024) HIV Screening abstracted Historical Provider HEALTH MAINTENANCE Final Result * Hepatitis C Screening (05/20/2024) Hepatitis C Screening abstracted Historical Provider HEALTH MAINTENANCE Final Result * Cervical Cancer Screening: HPV (07/20/2023) Pathologist [facility] Cervical Cancer Screening: HPV no interpreta tion,abstr acted Historical Provider HEALTH MAINTENANCE Final Result from Last 3 Months or Most Recently Relevant to Health Maintenance Insurance [facility] Advance Directives * Full Code - [...] currently active code status orders. Care Teams Records Management Coordinator Relationship Specialty Start Date End Date Araceli Augustin PA [address] [place] [phone] PCP - General 11/20/24
--- OUTSIDE RECORDS SUMMARY | 2025-09-16 06:29 | XMS_ITS | Encounter Summary ---
Author Organization [facility] Address [address] [place] [address] Care Team Providers Care Amr Physician Name Role Phone Araceli Augustin Primary Care Provider + Encounter Details Date Type Department Care Team ([facility] st Contact Info) Description 09/11/2025 Telephone Orthopedic Surgery - [place] [address] [facility] [address] [place] [address] Bessy Mesa MD 175 [facility] [address] [place] [phone] Social History Tobacco Use Types Packs/Day Years [...] Progress Notes * Bessy Mesa MD - 09/11/2025 4:38 PM EST Patient continues to have significant pain in her wrist. She is also concerned about just having a lot of other joint issues. Pt going to [facility] Will be seeing Rheumatology. Has MRI schedule at end of September. Also getting MRI's of the knees as well. She was concerned because there had been a broth specimen that grew out some bacteria. I had spokento the lab about this and it was more likely than not contaminant. Patient has not exhibited signs of wound infection. She has not had signs of any gastrointestinal colitis. I did offer to see the patient and do a cortisone shot in the hopes that this would give her some relief. She is familiar with using this. She has had a lot of cortisone over the years and it had seemingly gotten less effective. That certainly can happen. Probably best to avoid it if we can if she is going to be having other studies done in the upcoming month. She will keep us posted on her progress. * Savanah Camacho - 09/11/2025 12:15 PM EST María called in stating she is in extreme pain and does not know what to do anymore. She states she is losing her mind with this pain. She asked for a call back alex . Please advise. Thanks documented in this encounter Plan of Treatment Upcoming Encounters Date Type Department Care Team (Late st Contact Info) Description 09/23/2025 3:45 PM EST Office Visit Orthopedic Surgery - [place] [address] [address] Bessy Mesa MD [address] [address] documented as of this encounter Goals Goal Patient Goal Type Associated Problems Recent Progress Patient-Stated? Author OT 6-8 visits General No change(2024 4:47 PM EST) No Nichelle Milian, OT Note: 1> Indep HEP (splint weaning, ROM, pain manage, eventual strength) 09/11 Ongoing 2. Dominant R home health aide strength at least 35# (vs 20initial, vs [...] on filedocumented in this encounter Care Teams Amr Physician Relationship Specialty Start Date End Date Araceli Augustin PA [address] [place] [phone] PCP - General 11/20/24 documented as of this encounter
--- OUTSIDE RECORDS SUMMARY | 2025-09-16 06:29 | XMS_ITS | Patient Health Record ---
Author Organization [facility] Address [address] [facility] [address] [place] [address] Care Team Providers Care Head Piece Assembler Name Role Phone IKER ROBLERO PA-C Primary Care Provider Unav Mirella Pandali Unavailable [phone] Allergies Allergen (clinical drug ingredient) Drug/Non Drug Allergy documented on EMR Reaction Allergy Type Onset Date Status erythromycin ERYTHROMYCIN Skin Rash Drug Allergy A ctive Results Component Value Reference Range Notes Vitamin [id number] Reviewed date:12/14/2024 02:48:01 PM Interpretation: Performing Lab:[facility], [address] [place] [address], Phone - [phone], Director - MDdry Notes/Report: Test(s) 034780-Psc. B1, Whole Blood was developed and its performance characteristics determined by [facility]. It has not been cleared or approved by the Food and Drug Administration. Vitamin B12 653 493-1816 pg/mL Thyroxine (T4) Free, Direct- 296159 Reviewed date:12/14/2024 02:48:28 PM Interpretation: Performing Lab:[facility] [address] [place] [address], Phone - [phone], Director - MDJodry Notes/Report: Test(s) 041785-Cgr. B1, Whole Blood was developed and its performance characteristics determined by [facility]. It has not been cleared or approved by the Food and Drug Administration. T4,Free(Direct) 1.16 0.82-1.77 ng/dL TSH-008064 Reviewed date:12/14/2024 02:48:55 PM Interpretation: Performing Lab:[facility], [address] [place] [address], Phone - [phone], Director - MDJodry Notes/Report: Test(s) 202978-Dhu. B1, Whole Blood was developed and its performance characteristics determined by [facility]. It has not been cleared or approved by the Food and Drug Administration. TSH 0.492 0.450-4.500 uIU/mL Triiodothyronine (T3), Free- 048680 Reviewed date:12/14/2024 02:48:08 PM Interpretation: Performing Lab:[facility] [address], Phone - [phone], Director - Elsa Notes/Report: Test(s) 359884-Kqr. B1, Whole Blood was developed and its performance characteristics determined by [facility]. It has not been cleared or approved by the Food and Drug Administration. Triiodothyronine (T3), Free 2.9 2.0-4.4 pg/mL Vitamin D, 13-Nbijhcm-056058 Reviewed date:12/14/2024 02:47:53 PM Interpretation: Performing Lab:[facility] [address], Phone - [phone], Director - Elsa Notes/Report: Test(s) 466857-Yzs. B1, Whole Blood was developed and its performance characteristics determined by [facility]. It has not been cleared or approved by the Food and Drug Administration. Vitamin D, 25-Hydroxy 48.0 30.0-100.0 ng/mL Vitamin D deficiency has been defined by the [place] of [employer] and an Endocrine Society practice guideline as a level of serum 25-OH vitamin D less than 20 ng/mL (1,2). The Endocrine Society went on to further define vitamin D insufficiency as a level between 21 and 29 ng/mL (2). 1. IOM ([place] of [employer]). 2010. Dietary reference intakes for calcium and D. [place]: The National Academies Press. 2. Angelica MF, Leonel NC, Sheeba MCKENNA, et al. Evaluation, treatment, and prevention of vitamin D deficiency: an Endocrine Society clinical practice guideline. JCEM. 2010; 96(7):1911-30. Vitamin B1 (Thiamine), Blood -939605 Reviewed date:12/14/2024 02:48:18 PM Interpretation: Performing Lab:[facility] [address], [place], Phone - [phone], Director - Elsa Notes/Report: Test(s) 109442-Tds. B1, Whole Blood was developed and its performance characteristics determined by [facility]. It has not been cleared or approved by the Food and Drug Administration. Vit. B1, Whole Blood 131.3 66.5-200.0 nmol/L PDF Report Reviewed date:12/14/2024 02:47:46 PM Interpretation: Performing Lab:[facility], [address], [place], Phone - [phone], Director - Elsa Notes/Report: Test(s) 824219-Ddi. B1, Whole Blood was developed and its performance characteristics determined by [facility]. It has not been cleared or approved by the Food and Drug Administration. 623003-Rqh IGP No Culture 30 Plus Reviewed date:07/17/2025 02:32:32 PM Interpretation: Performing Lab:[facility] [place], [address], [address], [place], Phone - [phone], Director - [facility] Notes/Report: Clinical Information:VAG/CERV [id number] Dates / Results....05/26/2023 ASCUS POS HPV Other..............Post Menopausal No. of containers..01 ThinPrep Vial Clinical Information:VAG/CERV [id number] Dates / Results....05/26/2023 ASCUS POS HPV Other..............Post Menopausal No. of containers..01 ThinPrep Vial DIAGNOSIS: NEGATIVE FOR INTRAEPITHELIAL LESION OR MALIGNANCY. THIS SPECIMEN WAS RESCREENED PART OF OUR VICE PRESIDENT OF ADVERTISING PROGRAM. Specimen adequacy: Satisfactory for evaluation. Endocervical and/or squamous metaplastic cells (endocervical component) are present. Clinician provided ICD10: Z01.419 Z11.51 Performed by: Tianna vasquez, Wildlife Biologist (ASCP) QC reviewed by: Tutu weaver, Wildlife Biologist (ASCP) . . Note: The Pap smear [...] date:07/10/2025 04:46:44 PM Interpretation: Performing Lab:[facility] [place], [address], [address], [place], Phone - [phone], Director - [facility] Notes/Report: Clinical Information:VAG/CERV [id number] Dates / Results....05/26/2023 ASCUS POS HPV Other..............Post Menopausal No. of containers..01 ThinPrep Vial Urinalysis, Complete-629756 Reviewed date:07/03/2025 07:42:16 AM Interpretation: Performing Lab:[facility], [address] [facility], Phone - [phone], Director - lEsa Notes/Report: Clinical Information:SRC: Clinical Information:SRC: Specific [place] 1.013 1.005-1.030 pH 6.5 5.0-7.5 Urine-Color Yellow [...] Bacteria None seen None seen/Few Urine Culture, Routine-80814 7 Reviewed date:07/03/2025 07:42:29 AM Interpretation: Performing Lab:[facility], [address] [facility], [place], Phone - [phone], Director - Elsa Notes/Report: Clinical Information:SRC: Clinical Information:SRC:UC Urine Culture, Routine Final report Result 1 Mixed urogenital ramone 25,000-50,000 colony forming units per mL HBsAg Screen-[id number] Reviewed date:08/21/2025 07:50:52 AM Interpretation: Performing Lab:[facility] [place], [address], [place], Phone - [phone], Director - [facility] Notes/Report: Clinical Information:SRC:UR HBsAg Screen Negative Negative HIV Ab/p24 Ag with Reflex-08 3935 Reviewed date:08/21/2025 07:51:19 AM Interpretation: Performing Lab:[facility] [place], [address], [place], Phone - [phone], Director - [facility] Notes/Report: Clinical Information:SRC:UR HIV Ab/p24 Ag Screen Non Reactive Non Reactive HIV-1/HIV-2 antibodies and HIV-1 p24 antigen were NOT detected. There is no laboratory evidence of HIV infection. HIV Negative M genitalium AZEB, Urine-1800 25 Reviewed date:08/21/2025 07:50:59 AM Interpretation: Performing Lab:[facility] [place], [address], [place], Phone - [phone], Director - [facility] Notes/Report: Clinical Information:SRC:UR Mycoplasma genitalium AZEB Negative Negative HCV Antibody-416781 Reviewed date:08/21/2025 07:51:12 AM Interpretation: Performing Lab:[facility] [place], [address], [address], [place], Phone - [phone], Director - [facility] Notes/Report: Clinical Information:SRC:UR Hep C Virus Ab Non Reactive Non Reactive HCV antibody alone does not differentiate between previously resolved infection and active infection. Equivocal and Reactive HCV antibody results should be followed up with an HCV RNA test to support the diagnosis of active HCV infection. PDF Report Reviewed date:08/21/2025 07:50:23 AM Interpretation: Performing Lab:[facility] [place], [address], [address], [place], Phone - [phone], Director - [facility] Notes/Report: Clinical Information:SRC:UR Syphilis RPR w/reflex Reviewed date:08/21/2025 07:51:06 AM Interpretation: Performing Lab:[facility] [place], [address], [place], Phone - [phone], Director - [facility] Notes/Report: Clinical Information:SRC:UR RPR Non Reactive Non Reactive Chlamydia/GC Amplification Reviewed date:08/20/2025 05:10:49 PM Interpretation: Performing Lab:[facility] [place], [address], [address], [place], Phone - [phone], Director - Jaswinder Notes/Report: Clinical Information:SRC:UC Chlamydia trachomatis, AZEB Negative Negative Neisseria gonorrhoeae, AZEB Negative Negative PDF Report Reviewed date:08/20/2025 05:10:43 PM Interpretation: Performing Lab:[facility] [place], [address], [address], [place], Phone - [phone], Director - Jaswinder Notes/Report: Clinical Information:SRC:UC PDF Report Reviewed date:07/03/2025 07:41:07 AM Interpretation: Performing Lab:[facility] [place], [address] [facility], [place], Phone - [phone], Director - Elsa Notes/Report: Clinical Information:SRC:UC Urinalysis [...] MG TAKE 1 CAPSULE BY [facility] 3 TIMES A DAY Oral; Duration: 30 [...] test positive, high risk on vaginal specimen ([id number]) Cervical high risk human papillomavirus (HPV) DNA test positive (R87.810) Active confirmed Problem Postmenopausal atrophic vaginitis (47750342) Postmenopausal atrophic vaginitis (N95.2) Active confirmed Problem Cervicovaginal cytology: Low grade squamous intraepithelial lesion (715338374) Low grade squamous intraepithelial lesion on cytologic smear of cervix (LGSIL) (R87.612) Active confirmed Problem Non-toxic single thyroid nodule (969114558) Nontoxic single thyroid nodule (E04.1) Active confirmed Problem Autoimmune thyroiditis (16076373) Autoimmune thyroiditis (E06.3) Active confirmed Problem Anxiety disorder (460152656) Anxiety disorder, unspecified (F41.9) Active confirmed Problem Epidermal cyst (468711627) Epidermal cyst (L72.0) Active confirmed Problem Rheumatoid arthritis (28140405) Rheumatoid arthritis, unspecified (M06.9) Active confirmed Problem Endometrial intraepithelial neoplasia (629268443) 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) Active confirmed Problem Postcoital bleeding (41212472) Postcoital and contact bleeding (N93.0) Active confirmed Problem Unspecified abnormal finding in specimens from female genital organs (R87.9) Active confirmed Problem Menopause (159962753) Menopausal and female climacteric states (N95.1) Active confirmed Problem Anxiety state (929510692) Anxiety state, unspecified (300.00) Active confirmed Major Vital Signs Temperature 97.3 degrees Fahrenheit 07/03/2025 Blood pressure diastolic 84 mm Hg 07/03/2025 Height 62 in 07/03/2025 Blood pressure systolic 128 mm Hg 07/03/2025 Weight 161 lbs 07/03/2025 BMI 29.44 kg/m2 07/03/2025 Encounters Encounter Location Date Provider Diagnosis [facility] [address] [address] 12/05/2024 Latonya Lozano Total [address] [address] 02/14/2025 Latonyaines DiazLozano Total [address] [address] 03/06/2025 Latonyaines DiazLozano Total [address] [address] 10/14/2024 Latonya Mcgeeva Encounter for gynecological examination (general) (routine) without abnormal findings Z01.419 ; Encounter for screening mammogram for malignant neoplasm of breast Z12.31 ; Personal history of other diseases of the female genital tract Z87.42 ; Cervical high risk human papillomavirus (HPV) DNA test positive R87.810 and Postmenopausal atrophic vaginitis N95.[address] [address] 12/09/2024 Latonyaines Mcgeeva Other fatigue R53.83 and Menopausal and female climacteric states N95.[address] [address] 07/03/2025 Latonyaines Mcgeeva Lower abdominal pain , unspecified R10.30 ; Atypical squamous cells of undetermined significance on cytologic smear of vagina (ASC-US) R87.620 ; Cervical high risk human papillomavirus (HPV) DNA test positive R87.810 and Encounter for screening for human papillomavirus (HPV) Z11.[address] [address] 12/03/2024 Latonyaines DiazLozano Total [address] [address] 12/12/2024 Latonyaines DiazLozano [address] [address] 01/22/2025 Latonyaines DiazLozano [address] [address] 02/16/2025 Latonya Lozano Total [address] [address] 06/30/2025 Latonya Lozano Dysuria R30.[address] [address] 08/19/2025 Latonya Mcgeeva High risk heterosexu al behavior Z72.[address] [address] 09/09/2025 Latonyaines FranciscoLozano Assessments Encounter Date Diagnosis (ICD Code) Assessment [...] AND NEEDS TESTOSTERONE THERAPY, WILL REFER TO [facility]. WARNED PAT OF POSSIBLE VAGINAL [...] 10/14/2024 MM Digital Mammo Screening 05/04/2023 Chlamydia/GC Amplification-[id number] 2024 Insurance Providers Payer Name Payer Address Payer Phone Subscriber Number Group Number Insured Name Patient Relationship to Insured Coverage Start Date Coverage End Date [facility] [address] [address] [place] QUINONEZ [id number] [phone] [id number] MARCUS OLSON Self - patient is the [...]
--- OUTSIDE RECORDS SUMMARY | 2025-09-16 06:29 | XMS_ITS | Encounter Summary ---
Author Organization [facility] Address [address] [place] [address] [place] [phone] Phone Care Team Providers Care Tester Armature Or Fields Name Role Phone Vee Allan MD Primary Care Pr ovider Encounter Details Date Type Department Care Team (Late st Contact Info) Description 10/08/2020 Ancillary Orders [facility] - Orthopaedics Outpatient Practice [address] [facility], 1st Floor, [address] [place] [address] Finn Bone MD [address] [place] [address] [email or web address] Hand joint pain Social History [...] hand documented in this encounter Care Teams Tester Armature Or Fields Relationship Specialty Start Date End Date Vee Allan MD [address] [place] [address] PCP - General Internal Medicine 09/01/20 documented as of this encounter Additional Source Comments The information contained in this document represents components of the legal health record. It is not the complete legal health record.[facility]
--- OUTSIDE RECORDS SUMMARY | 2025-09-16 06:29 | XMS_ITS | Encounter Summary ---
Author Organization [facility] Address [address] [place] [address] [place] [address] Phone Care Team Providers Care Supervisor Prop Making Name Role Phone Vee Allan MD Primary Care Pr ovider Encounter Details Date Type Department Care Team (Late st Contact Info) Description 10/08/2020 Ancillary Orders [facility] - Orthopaedics Outpatient Practice [address] [facility], 1st Floor, [address] [place] [address] Finn Bone MD [address] [place] [address] [email or web address] Hand joint pain Social History Tobacco [...] hand documented in this encounter Care Teams Supervisor Prop Making Relationship Specialty Start Date End Date Vee Allan MD [address] [place] [address] PCP - General Internal Medicine 09/01/20 documented as of this encounter Additional Source Comments The information contained in this document represents components of the legal health record. It is not the complete legal health record.[facility]
--- OUTSIDE RECORDS SUMMARY | 2025-09-16 06:30 | XMS_ITS | Data Portability ---
Author Organization [facility], [address] Address [address] [place] [address] Care Team Providers Care Kindergarten Aide Name Role Phone [facility] Primary Care Provi ramses Assessment No assessment recorded. Plan of Treatment Reminders Order Date Submit Date Provider Last Modified By Organization Details Last Modified Time Details Appointments None recorded. Lab rapid strep group A, throat 2022 023 [email or web address] [facility], [address] [place] [address], [address], 3 19:09:54 streptococc us group A, culture, throat 2022 023 [email or web address] [facility], [address] [place] [address], [place], [address], 3 19:09:54 Referral emergency medicine referral - left lower facial weakness and numbness x 5 days [email or web address] Emergency Department, [address] [place], [address], 4 18:35:48 Procedures None recorded. Surgeries None recorded. Imaging None recorded. Medication Orders prednisone 20 mg tablet 2022 023 [email or web address] 5 [id number], [address] [place], [address], 4 16:05:23 benzonatate 200 mg capsule 2022 023 [email or web address] 5 [id number], [address] [place], [address], 16:05:13 Patient TargetsNo targets recorded. Patient Instructions Encounter Date Encounter Id Patient Instructions Last Modified By Organization Details Last Modified Time 12/17/2022 [id number] sore throat: car e instructions [email or web address] Not [...] care for yourself at home? Take an djow-sms-qbayvsn pain medicine. Avoid Ibuprofen, Aleve and Aspirin if . If the doctor prescribed antibiotics, take them as directed. Do not stop taking them just because you feel better. You need to take the full course of antibiotics. Be careful when taking kyph-nym-obpzegt cold or influenza (flu) medicines and Tylenol [...] worse. [email or web address] Not available 12/17/2022 19:07:18 05/19/2024 [id number] head or face zhera n: care instructions [email or web address] Not available 05/19/2024 [...] Range : Negat aashish Not Available [facility] [address] [facility], [place], [address], 12/21/2022 06:07:48 12/17/1912/17/2022 rapid strep group A, throa t Unknown Analyte Normal = Negati ve Not Available [address] [place], [address], 12/17/2022 18:34:11 12/17/1912/17/2022 rapid strep group A, throa t Unknown Analyte negati ve Not Available [address] [place], [address], 12/17/2022 18:34:11 Result Notes None recorded. 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 0.5 PPD [email or web address] Information not available 12/17/2022 Have You Recently Traveled Abroad? No [email or web address] Information not available 12/17/2022 Sex: Unknown Functional Status Question Answer Note LastModified by Organizat ion Details LastModified Time Do you use any illicit or recreational drugs? No [email or web address] Information not available 12/17/2022 Do you or have you ever used any other forms of tobacco or nicotine? No [email or web address] Information not available 12/17/2022 What is your level of alcohol consumption? Occasional Information not available 05/19/2024 Mental Status None recorded. Family History Relationship Description Onset Age of this Age Resolved Age Notes LastModified by Organization Details LastModified Time Unspecified Relation Disorder of thyroid gland [email or web address] Not available 2022 18:38:50 Medical History No [...] ICD10 Code Diagnosis IMO Codes Diagnosis [place] [id number] [place] [address] [address] 12/17/2022 17:31:11 12/17/2022 19:17:28 Sore throat 236137217 J02.9 [id number] [place] [address] [address] 05/19/2024 15:59:19 05/19/2024 16:21:39 Numbness of face 670920121 R20.0 ER now !!! Health Concerns Section Related Observation LastModified by Organization Detai ls LastModified Time None Recorded Concern Status LastModified by Organization Details LastModified Time None Recorded Advance Directives Directive None Recorded Payers Insurance Date Sequence Insurance Name Policy Number Policy Chacko Covered Member ID Chacko Member ID Guarantor Name 05/19/2024 2 [facility] [id number] [facility] 05/19/2024 1 [facility]LY [facility], [facility]1983 SHARED SERVICES - HA - DOS PRIOR TO 2024 (PPO) [facility] [id number] [facility] 12/17/2022 2 [employer] (POS) [facility] [id number] [facility] 05/19/2024 1 [employer] SIGNATURE ADMINISTRATORS - GEHA - DOS ON OR BEFORE 11/05/2023 - GEHA (PPO) [facility] [id number] [facility] 05/02/2023 1 [employer] [facility] [id number] [facility] Notes Date Note Type Note [...] Narendra Diaz NP [address] [place], [address], [place] - [facility] 12/17/2022 19:11:14 05/19/2024 text/html Facial ProblemRe ported by Patient a couple of weeks. twitching in face. x5 days having facial pain. pain level is 5/10. feels slight numbness on left side of mouth. patient also notices lower facial weakness as well. no chest pain. has slight head ache Juan F Noe DO [address] [place], [address], [place] - [facility] 05/19/2024 16:42:19 OBGyn Episode No OBEpisode recorded.
--- OUTSIDE RECORDS SUMMARY | 2025-09-16 06:30 | XMS_ITS | Continuity of Care Document ---
Author Organization [facility] [address] [facility] [address] [place] [address] Phone [phone] Care Team Providers Care Aligner Name Role Phone Vee Queen M.D Care Team Informa tijolanta Medical Director [phone] Problems Active Problems Provider Date Anxiety Eric [...] Medications SIG Qnty Indications Ordering Provider Date Jgigitdtxmiby7vj Tablets 1 tabs by mouth at 11pm 1tabs Eric Shah M.D. 12/01/2022 [id number] Capsules Take 1 Capsule By Mouth 2 Times A Day Terence Olvera MD Ngxphqgkisgzahgjsh1x g TBPK follow package directions Unknown Vital Signs Date Vital Result Comment 12/01/2022 11:00am BP Systolic 130 mmHg BP Diastolic 70 mmHg Heart Rate 72 /min Height 64 inches 5'4 Weight 185.00 lb BMI (Body Mass Index) 31.8 kg/m2 Results Test Acquired Date Facility Test Result H/L Range N ote Cortisol 01/20/2023 [facility] Refer ce Lab Cortisol 0.6 g/dL 1 Cortisol 01/06/2023 [facility] Refer ce Lab Cortisol <pending> Cortisol 01/05/2023 [facility] Referen ce Lab Cortisol 5.3 g/dL 2 Free T4 01/05/2023 [facility] Referen ce Lab Free T4 0.98 ng/dL (0.70-1.80) [facility] 0.52 uIU/mL (0.4-4.2) Free T4 01/04/2023 [facility] Referen ce Lab Free T4 <pending> TSH 01/04/2023 [facility] ce Lab TSH <pending> 1 Reference [...]
--- OUTSIDE RECORDS SUMMARY | 2025-09-16 06:30 | XMS_ITS | Patient Health Record ---
Author Organization [facility] [address] Address [address] [place] [address] Care Team Providers Care Yeast Maker Name Role Phone IKER ROBLERO Unavailable [phone] CHINO YBARRA Unavailable [phone] Normoylmason Sneha Unavailable [phone] Allergies Allergen (clinical drug ingredient) Drug/Non Drug Allergy documented on EMR Reaction Allergy Type Onset Date Status Macrolides and Ketolides hives Drug Allergy Active Results Component Value Reference Range Flag Notes XR WRIST 3+ VIEWS RIGHT (Not yet reviewed by provider) Interpretation: Performing Lab: Notes/Report: See Note [facility], a member of [employer], lateral, oblique of the right wrist [...] with flattening and sclerosis of the lunate XR KNEE 4+ VIEWS BILAT Reviewed date:08/19/2025 08:27:06 AM Interpretation: Performing Lab: Notes/Report: Note See Note [facility], a member of [employer] Patient Name: MARÍA PHILLIPS Date of : 1965 Reason for Exam: bilateral knee pain Exam Date: 08/14/2025 [id number] EST Report Status: Final Ordering Provider: CELIA [...] not progressed from prior x-rays obtained 01/22/2025. TISSUE EXAM Reviewed date:06/08/2025 11:10:45 PM Interpretation: [...] 10% NB formalin fixed and paraffin embedded. C REACTIVE PROTEIN, HIGH SEN SITIVITY Reviewed [...] HRT may need to be calibrated downward. SEDIMENTATION RATE Reviewed date:10/28/2024 04:25:48 PM Interpretation: Performing Lab: Notes/Report: Sed Rate 4 0-30 mm/hr COMPREHENSIVE METABOLIC PANE L Reviewed date:10/28/2024 04:25:35 PM Interpretation: Performing Lab: Notes/Report: Sodium 139 133-145 mmol/L Potassium 4.0 3.5-5.5 mmol/L Chloride 105 96-110 mmol/L CO2 29 21-32 mmol/L Anion Gap 5 3-11 Glucose 101 70-100 mg/dL H BUN 12 5-25 mg/dL Creatinine 0.87 0.50-1.10 mg/dL eGFR 78 >=60 mL/min/1.73m2 Calculation based on the?Chronic Kidney Disease Epidemiology Collaboration (CKD-EPI) equation refit?without adjustment for race. BUN/Creatinine Ratio 13.8 Calcium 9.5 8.5-10.5 mg/dL AST (SGOT) 13 10-42 unit/L ALT (SGPT) 15 10-60 unit/L Alkaline Phosphatase 100 42-121 unit/L Total Protein 6.9 6.0-8.0 g/dL Albumin 3.8 3.2-5.0 g/dL Total Bilirubin 0.3 0.0-1.4 mg/dL CBC WITH AUTO DIFFERENTIAL Reviewed date:10/28/2024 04:25:45 [...] K/mcL Immature Granulocytes Absolute 0.05 0.00-0.03 K/mcL H RHEUMATOID FACTOR Reviewed date:10/28/2024 04:25:29 PM Interpretation: Performing Lab: Notes/Report: Rheumatoid Factor 152.0 <15.0 I Unit/mL H FERRITIN Reviewed date:10/28/2024 04:25:26 PM Interpretation: Performing Lab: Notes/Report: Ferritin 28 8-252 ng/mL IRON AND TIBC Reviewed date:10/28/2024 04:25:22 PM Interpretation: Performing Lab: Notes/Report: Iron 41 40-150 mcg/dL TIBC 392 250-450 mcg/dL Iron Saturation 10 15-50 % L HEMOGLOBIN A1C Reviewed date:10/29/2024 11:55:59 AM Interpretation: Performing Lab: Notes/Report: Hemoglobin A1C 5.4 <6.5 % Mean Bld Glu Estim. 108 THYROID STIMULATING HORMONE Reviewed date:10/28/2024 04:25:11 PM [...] 85 <145 mg/dL Chol/HDL Ratio 1.8 0.0-4.4 THYROID STIMULATING IMMUNOGL OBULIN Reviewed date:07/29/2025 07:58:42 [...] 0.11 to 0.39 IU/L. Test performed at [facility], [address], [place] [address] Krystina Austin MD, PhD - Catering Attendant HI HEPATOBILIARY SYSTEM IMAG ING Reviewed date:05/15/2025 03:07:20 PM Interpretation: Performing Lab: Notes/Report: Note See Note [facility], a member of [facility] Patient Name: MARÍA PHILLIPS Date of : 1965 Reason for Exam: Abdominal pain, upper, recurrent, post cholecystectomy Exam Date: 05/15/2025 [id number] EST Report Status: Final Ordering Provider: ALEXEI [...] hepatobiliary scintigraphy status post cholecystectomy. Telerad TL ([id number]) -------- FINAL REPOR T -------- Dictated By: Dayami Walker i Dictated Date: 05/15/2025 11:46 ET Assigned Physician: Dayami Diehl Reviewed and Electronically Signed By: Dayami Diehl Signed Date: 025 11:48 ET Workstation ID: [id number] Transcribed By: Self Edit Transcribed Date: 05/15/2025 11:46 ET XR FLUORO UP TO 1 HOUR Reviewed date:03/11/2025 11:47:24 AM Interpretation: Performing Lab: Notes/Report: Note See Note [facility], a member of [facility] Patient Name: MARÍA PHILLIPS Date of : 1965 Reason for Exam: pain Exam Date: 03/11/2025 [id number] EST Report Status: Final Ordering Provider: DAVID [...] Wright Signed Date: 11:03 ET Workstation ID: [id number] Transcribed By: Self Edit Transcribed Date: 03/11/2025 11:02 ET XR FLUORO UP TO 1 HOUR Reviewed date:02/04/2025 05:11:16 PM Interpretation: Performing Lab: Notes/Report: Note See Note [facility], a member of [employer] Patient Name: MARÍA PHILLIPS Date of : 1965 Reason for Exam: pain Exam Date: 02/04/2025 [id number] EST Report Status: Final Ordering Provider: DAVID [...] Signed Date: 025 12:53 ET Workstation ID: [id number] Transcribed By: Self Edit Transcribed Date: 02/04/2025 12:51 ET HELICOBACTER PYLORI ANTIGEN, STOOL Reviewed date:05/13/2025 04:03:38 PM Interpretation: Performing Lab: Notes/Report: Helicobacter Pylori Ag DETECTED Not detected A This test was performed at [facility] [...] performed at [facility], [address] [place] [id number] Krystina Austin MD, PhD - Catering Attendant HELICOBACTER PYLORI ANTIGEN, STOOL Reviewed date:08/05/2025 03:02:36 PM Interpretation: Performing Lab: Notes/Report: Helicobacter Pylori Ag Not detected Not detected This test was performed at [facility], [address] , [place] [address] Krystina Austin MD, PhD - Catering Attendant XR HAND 3+ VIEWS RIGHT Reviewed date:05/15/2025 07:58:11 AM Interpretation: Performing Lab: Notes/Report: Note See Note [facility], a member of [facility] Patient Name: MARÍA PHILLIPS Date of : 1965 Reason for Exam: pain Exam Date: 05/14/2025 [id number] EST Report Status: Final Ordering Provider: OLAF [...] osteoarthritis of the first carpal-metacarpal articulation. Code 65852, 85457 -------- FINAL REPOR T -------- Dictated By: Mauro Wright Dictated Date: 05/15/2025 07:41 ET Assigned Physician: Mauro Wright Reviewed and Electronically Signed By: Mauro Wright Signed Date: 025 07:44 ET Workstation ID: [id number] Transcribed By: Self Edit Transcribed Date: 05/15/2025 07:41 ET CAMILO IFA WITH TITER AND GIOVANNA SAMSON Reviewed date:11/01/2024 07:38:11 AM Interpretation: Performing Lab: Notes/Report: CAMILO Negative Negative BORRELIA BURGDORFERI ANTIBOD Y Reviewed date:12/06/2024 12:06:22 PM Interpretation: Performing Lab: Notes/Report: Lyme Ab Negative Negative No laboratory evidence of infection with B. burgdorferi (Lyme disease). Negative results may occur in patients recently infected (<=14 days) with B. burgdorferi. If recent infection is suspected, repeat testing on a new sample collected in 7-14 days is recommended. XR WRIST 3+ VIEWS RIGHT Reviewed date:05/15/2025 07:58:21 AM Interpretation: Performing Lab: Notes/Report: Note See Note [facility], a member of [facility] Patient Name: MARÍA PHILLIPS Date of : 1965 Reason for Exam: rm Exam Date: 05/14/2025 [id number] EST Report Status: Final Ordering Provider: OLAF KAPLAN PCP: IKER ROBLERO Please see combined report with radiographs of the right hand. -------- FINAL REPOR T -------- Dictated By: Mauro Wright Dictated Date: 05/15/2025 07:41 ET Assigned Physician: Mauro Wright Reviewed and Electronically Signed By: Mauro Wright Signed Date: 025 07:41 ET Workstation ID: [id number] Transcribed By: Self Edit Transcribed Date: 05/15/2025 07:41 ET XR WRIST 3+ VIEWS RIGHT Reviewed date:08/13/2025 08:18:07 AM Interpretation: Performing Lab: Notes/Report: Note See Note [facility], a member of [facility] Patient Name: MARÍA PHILLIPS Date of : 1965 Reason for Exam: right wrist pain Exam Date: 08/12/2025 [id number] EST Report Status: Final Ordering Provider: DUC [...] Interpretation: Performing Lab: Notes/Report: Note See Note [facility], a member of [employer] Patient Name: MARÍA PHILLIPS Date of : 1965 Reason for Exam: PULMONARY NODULE Exam Date: 05/28/2025 [id number] EST Report Status: Final Ordering Provider: IKER ROBLERO PCP: IKER ROBLERO History: Pulmonary nodule follow-up. Comparison: 12/05/24 Technique: Helical volumetric imaging of the thorax was performed without IV contrast. DLP: 279.09 mGy/cm Veevaer Iterative reconstruction technique Findings: The trachea and cent ral [...] 2. No developing thoracic lymphadenopathy. Telerad PA ([id number]) -------- FINAL REPOR T -------- Dictated By: Dayami Walker i Dictated Date: 06/02/2025 09:00 ET Assigned Physician: Dayami Diehl Reviewed and Electronically Signed By: Dayami Diehl Signed Date: 025 09:13 ET Workstation ID: [id number] Transcribed By: Self Edit Transcribed Date: 06/02/2025 09:00 ET HEAD NECK SOFT TISSUE Reviewed date:02/10/2025 05:04:59 PM Interpretation: Performing Lab: Notes/Report: Note See Note [facility], a member of [facility] Patient Name: MARÍA PHILLIPS Date of : 1965 Reason for Exam: ENLARGED LYMPHNODE Exam Date: 02/08/2025 [id number] EST Report Status: Final Ordering Provider: CHINO [...] Signed Date: 025 15:55 ET Workstation ID: [id number] Transcribed By: Self Edit Transcribed Date: 02/08/2025 15:52 ET XR ESOPHAGRAM Reviewed date:01/01/2025 09:27:26 AM Interpretation: Performing Lab: Notes/Report: Note See Note [facility], a member of [facility] Patient Name: MARÍA PHILLIPS Date of : 1965 Reason for Exam: DYSPHAGIA Exam Date: 12/26/2024 [id number] EST Report Status: Final Ordering Provider: BARBARA MORRISSEY PCP: IKER ROBLERO FINDINGS: Double contrast esophagram performed. COMPARISON: Esophagr am March 04, 2022 HISTORY: Patient is a 59-year-old female with history of globus sensation. Epigastric pain. 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 Telerad PA ([id number]) -------- FINAL REPOR T -------- Dictated By: Dayami Walker i Dictated Date: 11/19/2024 13:40 ET Assigned Physician: Dayami Diehl Reviewed and Electronically Signed By: Dayami Diehl Signed Date: 025 13:45 ET Workstation ID: [id number] Transcribed By: Self Edit Transcribed Date: 11/19/2024 13:40 ET MG MAMMO DIGITAL SCREENING W HERACLIO SCHUMACHER Reviewed date:02/06/2025 11:57:46 AM Interpretation: Performing Lab: Notes/Report: Note See Note [facility], a member of [facility] Patient Name: MARÍA PHILLIPS Date of : 1965 Reason for Exam: SCREENING Exam Date: 02/05/2025 [id number] EST Report Status: Final Ordering Provider: IKER [...] is recommended in 1 year. Mammo Location: [facility] er For Mammography at [facility], [address] [place] [address], [phone], . -------- FINAL REPOR T -------- Dictated By: Stefani Zamora Dictated Date: 02/06/2025 09:43 ET Assigned Physician: Stefani Zamora Reviewed and Electronically Signed By: Stefani Zamora Signed Date: 025 09:45 ET Workstation ID: [id number] Transcribed By: Self Edit Transcribed Date: 02/06/2025 09:43 ET THYROID STIMULATING HORMONE WITH REFLEX TO FREE T4 AND FREE T3 Reviewed date:07/24/2025 02:40:06 PM Interpretation: Performing Lab: Notes/Report: TSH 1.20 0.40-4.00 mcIU/mL THYROID STIMULATING HORMONE WITH REFLEX TO FREE T4 AND FREE T3 Reviewed date:03/06/2025 07:35:25 AM Interpretation: Performing Lab: Notes/Report: TSH 1.43 0.40-4.00 mcIU/mL TRIIODOTHYRONINE FREE Reviewed date:07/24/2025 02:40:06 PM Interpretation: Performing Lab: Notes/Report: T3, Free 316 230-420 pcg/dL COMPREHENSIVE METABOLIC PANE L Reviewed date:05/05/2025 05:25:25 [...] 3.2-5.0 g/dL Total Bilirubin 0.4 0.0-1.4 mg/dL THYROXINE FREE Reviewed date:07/24/2025 02:40:06 PM Interpretation: Performing Lab: Notes/Report: Free T4 1.16 0.70-1.80 ng/dL VITAMIN D 25 HYDROXY Reviewed date:03/06/2025 07:35:20 AM Interpretation: Performing Lab: Notes/Report: Vit D, 25-Hydroxy 30.1 30.0-80.0 ng/mL Anti-La (SS-B) Ab (RDL)-5203 20 Reviewed date:02/11/2025 07:42:47 AM Interpretation: Performing Lab:[facility], [address] [place] [address], Phone - [phone], Director - [facility] Notes/Report: Test(s) 166262-Pudq-Vu-1 Ab (RDL) was developed and its performance characteristics determined by [facility]. It has not been cleared or approved by the Food and Drug Administration. Anti-La (SS-B) Ab (RDL) <20 <20 Units Negative: <20 Weak Positive: 20-39 Moderate Positive: 40-80 Strong Positive: >80 Anti-Sm Ab (RDL)-847977 Reviewed date:02/11/2025 07:42:50 AM Interpretation: Performing Lab:[facility], [address] [place] [address], [place], Phone - [phone], Director - [facility] Notes/Report: Test(s) 892983-Hxaz-Vn-8 Ab (RDL) was developed and its performance characteristics determined by [facility]. It has not been cleared or approved by the Food and Drug Administration. Anti-Sm Ab (RDL) <20 <20 Units Negative: <20 Weak Positive: 20-39 Moderate Positive: 40-80 Strong Positive: >80 Anti-Ro (SS-A) Ab (RDL)-5200 10 Reviewed date:02/11/2025 07:42:55 AM Interpretation: Performing Lab:[facility] [address] [place] [address], Phone - [phone], Director [facility] Notes/Report: Test(s) 381788-Rxym-Fo-8 Ab (RDL) was developed and its performance characteristics determined by [facility]. It has not been cleared or approved by the Food and Drug Administration. Anti-Ro (SS-A) Ab (RDL) <20 <20 Units Negative: <20 Weak Positive: 20-39 Moderate Positive: 40-80 Strong Positive: >80 Anti-Mi-2 Ab (RDL)-634845 Reviewed date:02/11/2025 07:42:59 AM Interpretation: Performing Lab:[facility] [address] [place] [address], Phone - [phone], [facility] Notes/Report: Test(s) 201049-Oerd-Wq-9 Ab (RDL) was developed and its performance characteristics determined by [facility]. It has not been cleared or approved by the Food and Drug Administration. Anti-Mi-2 Ab (RDL) Negative Negative TSH Rfx on Abnormal to Free T4-517348 Reviewed date:07/15/2025 03:58:09 PM Interpretation: Performing Lab:[facility] [address] [place] [address], Phone - [phone], [facility] Notes/Report: TSH 0.436 0.450-4.500 uIU/mL L T4,Free (Direct) 1.14 0.82-1.77 ng/dL Comp. Metabolic Panel (14)-3 46946 Reviewed date:07/15/2025 08:25:45 AM Interpretation: Performing Lab:[facility] [address] [place] [address], Phone - [phone], [facility] Notes/Report: Glucose 75 70-99 mg/dL BUN 9 [...] (SGPT) 22 0-32 IU/L Comp. Metabolic Panel (14)-3 56527 Reviewed date:02/11/2025 07:43:25 AM Interpretation: Performing Lab:[facility], [address] [place] [address], [place], Phone - [phone], Director - Elsa Notes/Report: Test(s) 116741-Rfjw-Ci-5 Ab (RDL) was developed and its performance characteristics determined by [employer]. It has not been cleared or approved [...] 0-40 IU/L ALT (SGPT) 13 0-32 IU/L Qbdv-Zb-2-356979 Reviewed date:02/11/2025 07:43:02 AM Interpretation: Performing Lab:[facility], Phone - [phone], Director - [facility] Notes/Report: Test(s) 691462-Cnhe-Bi-9 Ab (RDL) was developed and its performance characteristics determined by [facility]. It has not been cleared or approved by the Food and Drug Administration. Anti-Lakisha-1 <0.2 0.0-0.9 AI Creatine Kinase (CK), MB-120 816 Reviewed date:02/11/2025 07:43:06 AM Interpretation: Performing Lab:[facility], Phone - [phone], Director - [facility] Notes/Report: Test(s) 917035-Tkal-Zk-0 Ab (RDL) was developed and its performance characteristics determined by [facility]. It has not been cleared or approved by the Food and Drug Administration. Creatine Kinase (CK), MB 1.4 0.0-5.3 ng/mL C-Reactive Protein, Cardiac- 232049 Reviewed date:02/11/2025 07:43:09 AM Interpretation: Performing Lab:[facility] [address], Phone - [phone], Director - [facility] Notes/Report: Test(s) 059328-Afjz-Ak-1 Ab (RDL) was developed and its performance characteristics determined by [facility]. It has not been cleared or approved by the Food and Drug Administration. C-Reactive Protein, Cardiac 1.34 0.00-3.00 mg/L Relative Risk for Future Cardiovascular Event Low <1.00 Average 1.00 - 3.00 High >3.00 Anti-dsDNA Antibodies-995680 Reviewed date:02/11/2025 07:43:13 AM Interpretation: Performing Lab:[facility] [address], Phone - [phone], Director - [facility] Notes/Report: Test(s) 716489-Boua-Bn-1 Ab (RDL) was developed and its performance characteristics determined by [facility]. It has not been cleared or approved by the Food and Drug Administration. Anti-DNA (DS) Ab Qn 1 0-9 IU/mL Negative <5 Equivocal 5 - 9 Positive >9 Complement C3, Serum-021386 Reviewed date:02/11/2025 07:43:16 AM Interpretation: Performing Lab:[facility] [address], Phone - [phone], Director - [facility] Notes/Report: Test(s) 375557-Zxqp-Pt-8 Ab (RDL) was developed and its performance characteristics determined by [facility]. It has not been cleared or approved by the Food and Drug Administration. Complement C3, Serum 119 82-167 mg/dL Sedimentation Rate-Westergre n-840990 Reviewed date:02/11/2025 07:42:43 AM Interpretation: Performing Lab:[facility] [address], Phone - [phone], Director - [facility] Notes/Report: Test(s) 217346-Nrvv-Zu-3 Ab (RDL) was developed and its performance characteristics determined by [facility]. It has not been cleared or approved by the Food and Drug Administration. Sedimentation Rate-Westergren 14 0-40 mm/hr Maryan Barnett CMP14 Default A hand-written panel/profile was received from your office. In accordance with the [facility] Ambiguous Test Code Policy dated May 2003, we have completed your order by using the closest currently or formerly recognized AMA panel. We have assigned Comprehensive Metabolic Panel (14), Test Code #797171 to this request. If this is not the testing you wished to receive on this specimen, please [facility]ical [facility] to clarify the test order. We appreciate your business. CBC With Differential/Platel et-377588 Reviewed date:02/11/2025 07:43:32 AM Interpretation: Performing Lab:[facility] [address] [place] [address], [place], Phone - [phone], Director - Elsa Notes/Report: Test(s) 641891-Ltil-As-5 Ab (RDL) was developed and its performance characteristics determined by [employer]. It has not been cleared or approved [...] (Abs) 0.0 0.0-0.1 x10E3/uL CBC With Differential/Platel et-612821 Reviewed date:07/15/2025 08:25:37 AM Interpretation: Performing Lab:[facility] Edita Galicia [facility], [place], Phone - [phone], Director - Elsa Notes/Report: WBC 7.7 3.4-10.8 x10E3/uL RBC 3.91 3.77-5.28 x10E6/uL Hemoglobin 13.2 11.1-15.9 g/dL Hematocrit 39.3 34.0-46.6 % MCV 101 79-97 fL H MCH 33.8 26.6-33.0 pg H MCHC 33.6 31.5-35.7 g/dL RDW 12.6 11.7-15.4 [...] % Immature Grans (Abs) 0.0 0.0-0.1 x10E3/uL Ferritin-344485 Reviewed date:07/15/2025 08:25:45 AM Interpretation: Performing Lab:[facility], Phone - [phone], Director - MDJodry Notes/Report: Ferritin 85 15-150 ng/mL Complement C4, Serum-175918 Reviewed date:02/11/2025 07:43:19 AM Interpretation: Performing Lab:[address], Phone - [phone], Director - MDJodry Notes/Report: Test(s) 193671-Hcov-Ro-2 Ab (RDL) was developed and its performance characteristics determined by [employer]. It has not been cleared or approved by the Food and Drug Administration. Complement C4, Serum 18 12-38 mg/dL Iron and TIBC-846260 Reviewed date:07/15/2025 03:58:09 PM Interpretation: Performing Lab:[address], Phone - [phone], Director - MDJodry Notes/Report: Iron Bind.Cap.(TIBC) 371 250-450 ug/dL UIBC 318 131-425 ug/dL Iron 53 27-159 ug/dL Iron Saturation 14 15-55 % L EKG (Not yet reviewed by pro vider) Interpretation: Performing Lab: Notes/Report: ECGDiastolicBP 68 ECGHr 73 ECGPRInterval 158 ECGPWaveAxis 34 ECGQRSDuration 78 ECGQrsWaveAxis 33 ECGQTcInterval 404 ECGQTInterval 382 ECGSystolicBP 116 ECGTWaveAxis 31 RR_DiastolicBP 0 RR_MaxRRInterval 0 RR_MeanHR 0 RR_MeanRRInterval 0 RR_MinRRInterval 0 RR_NumBeats 0 RR_NumNormalBeats 0 RR_SystolicBP 0 CULTURE ANAEROBIC WITH GRAM STAIN Reviewed date:07/24/2025 [...] S Gram Stain Result Refer to Aerobic culture for gram stain results. Culture, Anaerobic No Growth of Anaerobes. Culture, Anaerobic STAPHYLOCOCCUS WARNERI A Culture, Anaerobic STREPTOCOCCUS VIRIDA NS GROUP A Culture, Anaerobic BACILLUS SPECIES, NO T ANTHRACIS A Report Susceptibility Report CALPROTECTIN, STOOL Reviewed date:05/12/2025 05:08:37 PM Interpretation: Performing Lab: Notes/Report: Calprotectin, Fecal 16.5 <50 mcg/g <50 mcg/g Normal 50 - 120 mcg/g Borderline >120 mcg/g Abnormal Borderline results suggest repeat testing in 4 to 6 weeks. Test performed at [facility], [facility] [place] [address] Krystina Austin MD, PhD - Catering Attendant GASTROINTESTINAL PATHOGENS DARNELL STUDY Reviewed date:05/08/2025 03:43:25 [...] Toxins A+B, EIA Negative Negative NEGATIVE FOR TOX IN PRODUCING CLOSTRIDIOIDES DIFFICILE, NO ADDITIONAL TESTING IS NECESSARY. XR KNEE 4+ VIEWS BILAT Reviewed date:01/27/2025 08:06:07 AM Interpretation: Performing Lab: Notes/Report: Note See Note [facility], a member of [employer] Patient Name: MARÍA PHILLIPS Date of : 1965 Reason for Exam: ilateral knee pain Exam Date: 01/22/2025 [id number] EST Report Status: Final Ordering Provider: CELIA [...] intercondylar notch. No seeming effusion. Neutral alignment. CULTURE WOUND DEEP Reviewed date:07/21/2025 01:17:57 PM Interpretation: Performing Lab: Notes/Report: Culture, Wound No growth at 3 days Gram Stain Result No polymorphonuclear leukocytes, No epithelial cells, and No organisms noted CREATINE KINASE Reviewed date:03/24/2025 07:44:57 AM Interpretation: Performing Lab: Notes/Report: Total CK 87 22-269 unit/L FERRITIN Reviewed date:03/05/2025 07:31:08 PM Interpretation: Performing [...] Lab: Notes/Report: Vitamin B-12 463 250-900 pcg/mL HEMOGLOBIN A1C Reviewed date:05/06/2025 03:59:06 PM Interpretation: Performing Lab: Notes/Report: Hemoglobin A1C 5.7 <6.5 % Mean Bld Glu Estim. 117 URINALYSIS WITH REFLEX MICRO SCOPIC AND CULTURE Reviewed date:03/24/2025 07:44:34 AM Interpretation: Performing Lab: Notes/Report: Specific [place] Urine 1.010 1.003-1.030 pH, Urine 8.0 5.0-8.0 pH Leukocytes, Urine Negative Negative Nitrite, Urine Negative Negative Protein, Urine Negative <=Trace mg/dL Glucose, Urine Negative Negative mg/dL Ketones, Urine Negative Negative mg/dL Urobilinogen, Urine 0.2 0.2-1.0 mg/dL Bilirubin, Urine Negative Negative Blood, Urine Negative Negative COMPREHENSIVE METABOLIC PANE L Reviewed date:03/05/2025 07:31:45 [...] 3.2-5.0 g/dL Total Bilirubin 0.4 0.0-1.4 mg/dL COMPREHENSIVE METABOLIC PANE L Reviewed date:03/24/2025 07:44:44 [...] Performing Lab: Notes/Report: Magnesium 2.2 1.9-2.6 mg/dL MAGNESIUM Reviewed date:03/05/2025 07:32:01 PM Interpretation: Performing Lab: Notes/Report: Magnesium 2.3 1.9-2.6 mg/dL THYROID STIMULATING HORMONE Reviewed date:03/24/2025 07:44:38 AM Interpretation: Performing Lab: Notes/Report: TSH 0.79 0.40-4.00 mcIU/mL CBC WITH AUTO DIFFERENTIAL Reviewed date:03/24/2025 07:49:47 AM Interpretation: Performing Lab: Notes/Report: WBC 7.6 4.8-10.8 K/mcL RBC 4.00 3.80-4.80 M/mcL Hemoglobin 12.9 11.5-16.0 g/dL Hematocrit 38.7 35.0-47.0 % MCV 97.7 79.0-98.0 FL MCH 32.6 27.0-32.0 pcg H MCHC 33.3 32.0-37.0 g/dL RDW 14.6 11.0-15.0 [...] K/mcL Immature Granulocytes Absolute 0.04 0.00-0.03 K/mcL H CBC WITH AUTO DIFFERENTIAL Reviewed date:03/05/2025 07:32:33 PM Interpretation: Performing Lab: Notes/Report: WBC 7.1 4.8-10.8 K/mcL RBC 4.20 3.80-4.80 M/mcL Hemoglobin 13.5 11.5-16.0 g/dL Hematocrit 42.0 35.0-47.0 % MCV 99.8 79.0-98.0 FL H MCH 32.1 27.0-32.0 pcg H MCHC 32.1 32.0-37.0 g/dL RDW 14.6 11.0-15.0 [...] K/mcL Immature Granulocytes Absolute 0.03 0.00-0.03 K/mcL CT SINUSES WO CONTRAST Reviewed date:01/24/2025 12:18:38 PM Interpretation: Performing Lab: Notes/Report: Note See Note [facility], a member of [employer] Patient Name: MARÍA PHILLIPS Date of : 1965 Reason for Exam: deviated septum,sinonasal polyp Exam Date: 01/24/2025 [id number] EST Report Status: Final Ordering Provider: EDMUND [...] Signed Date: 025 08:42 ET Workstation ID: [id number] Transcribed By: Self Edit Transcribed Date: 01/24/2025 08:15 ET URINALYSIS WITH REFLEX MICRO SCOPIC AND CULTURE Reviewed date:01/21/2025 02:02:02 PM Interpretation: Performing Lab: Notes/Report: Specific [place] Urine 1.034 1.003-1.030 H pH, Urine 6.5 5.0-8.0 pH Leukocytes, Urine Negative Negative Nitrite, Urine Negative Negative Protein, Urine Trace <=Trace mg/dL Glucose, Urine Negative Negative mg/dL Ketones, Urine Negative Negative mg/dL Urobilinogen, Urine 0.2 0.2-1.0 mg/dL Bilirubin, Urine Negative Negative Blood, Urine Negative Negative US HEAD NECK SOFT TISSUE Reviewed date:01/24/2025 01:16:29 PM Interpretation: Performing Lab: Notes/Report: Note See Note [facility], a member of [employer] Patient Name: MARÍA PHILLIPS Date of : 1965 Reason for Exam: cervicalgia Exam Date: 01/24/2025 [id number] EST Report Status: Final Ordering Provider: CHINO YBARRA PCP: IKER ROBLERO [facility]AMINATION[facility]: Pain. Symptoms for 6 [...] Signed Date: 025 08:00 ET Workstation ID: [id number] Transcribed By: Self Edit Transcribed Date: 01/24/2025 07:55 ET XR SHOULDER 2+ VIEWS BILAT Reviewed date:01/08/2025 05:02:44 PM Interpretation: Performing Lab: Notes/Report: Note See Note [facility], a member of [facility] Patient Name: MARÍA PHILLIPS Date of : 1965 Reason for Exam: bilateral shoulder pain Exam Date: 01/08/2025 [id number] EST Report Status: Final Ordering Provider: NICHELLE [...] calcific tendinitis and narrowing of subacromial space Reason For Referral Reason [facility] Diagnosis 1 Shoulder pain, unspe cified chronicity, unspecified laterality (M25.519) Referral Organization [facility] [address] Referring Provider First Name IKER Referring Provider Last Name SINGERS GLEN Referring Provider Speciality Preventive Medicine Referred Provider Specialty Orthopedic S urgery General Notes Letitia Cox 025 10:47:57 AM > Referral faxed over to [facility] for Bilateral shoulder pain P. [phone] Referral Priority Routine Reason Sleep Medicine [facility]; sleep study; loud snoring Diagnosis 1 Loud snoring (R06.83 ) Referral Organization [facility] [address] Referring Provider First Name IKER Referring Provider Last Name SINGERS GLEN Referring Provider Speciality Preventive Medicine Referred Provider Specialty Sleep Medici ne General Notes [address] [facility] [address] [place] (p) [phone], (f) [phone] Clinical Notes Maryann Cox 02:10:39 PM > I called the office and they informed me that they had reached out to the patient and are just waiting for a callback to schedule an appt Referral Priority Routine Reason pain management : ri ght rib pain Diagnosis 1 Rib pain on right si de (R07.81) Referral Organization [facility] [address] Referring Provider First Name IKER Referring Provider Last Name SINGERS GLEN Referring Provider Speciality Preventive Medicine Referred Provider Specialty Pain Medicin e Clinical Notes Zoila Narayanan 04/25 09:57:57 AM > Family Physiatry, Address: [address] [place] [address], , Fax number: [phone], Maryann Cox 06/17/2025 02:17:36 PM > The patient was scheduled for 06/05 but she no showed and has not rescheduled yet Referral Priority Routine Reason [facility]; easy bruising Diagnosis 1 Easy bruising (R23.3 ) Referral Organization [facility] [address] Referring Provider First Name IKER Referring Provider Last Name SINGERS GLEN Referring Provider Speciality Preventive Medicine Referred Provider Specialty Dermatology General Notes [address], (p) [phone], (f) [phone] Clinical Notes Caren Narayanan 08:43:03 AM > referral faxed with notes Referral Priority Routine Reason Dr. Hoffman Diagnosis 1 Pulmonary nodule (R9 1.1) Diagnosis 2 Centrilobular emphys christine (J43.2) Referral Organization [facility] [address] Referring Provider First Name IKER Referring Provider Last Name SINGERS GLEN Referring Provider Speciality Preventive Medicine Referred Provider Specialty Pulmonology General Notes XAVIER VILLANUEVA 06/09 08:34:07 AM > Referral faxed, Dr Hoffman - Pulmonology and Sleep Medicine, [address] [place] [address], , Clinical Notes Maryann Cox 10/2025 02:17:04 PM > The patient was scheduled for 06/05 but she no showed and has not rescheduled yet Referral Priority Routine Reason [facility] Diagnosis 1 Chronic pain syndrom e (G89.4) Diagnosis 2 Cervical pain (M54.2 ) Referral Organization [facility] [address] Referring Provider First Name IKER Referring Provider Last Name SINGERS GLEN Referring Provider Speciality Preventive Medicine Referred Provider Specialty Orthopedic S urgery General Notes XAVIER VILLANUEVA 06/26 08:13:11 AM > Referral has been faxed, [facility], [address] [place] [address], , Clinical Notes Maryann Cox 02:25:30 PM > I called the office, and they informed me they had reached out to the patient multiple times with no response. I then spoke with the patient, who stated she was not aware a referral had been sent. She said she will call the office back Referral Priority Stat Reason Spine Surgery - [facility] Diagnosis 1 Lumbar back pain (M5 4.50) Diagnosis 2 Chronic lumbar radic ulopathy (M54.16) Referral Organization [facility] [address] Referring Provider First Name IKER Referring Provider Last Name SINGERS GLEN Referring Provider Speciality Preventive Medicine Referred Provider Specialty Spinal Cord Injury Medicine General Notes XAVIER VILLANUEVA 07/08 03:54:08 PM > referral has been initiated & faxed, [facility], [address], [address], [place], , Most recent MRI was done at [facility] 01/14/25 Clinical Notes Maryann Cox 01/2025 02:17:15 PM > I called [facility], and they are requesting an updated MRI taken within the past year. They asked that we fax it to their office. Once received, they will review the patient's records and contact her to schedule., Maryann Cox 07/17/2025 11:04:32 AM > Scheduled for 07/23 at 1 pm. Pt aware Referral Priority Stat Medications Medication SIG (Take, Route, Frequency, Duration) Notes Start Date End Date Status Polymyxin B-Trimethoprim 06815-9.1 UNIT/ML Solution 1 drop into affected eye Ophthalmic Four times a day; Duration: 3 days 09/04/2025 Active LORazepam 0.5 MG Tablet 1 tablet at bedt ivanna as needed Orally 3 times a day Active ZyrTEC 10 MG Tablet Chewable 1 tablet Orally Once a day A ctive Gabapentin 300 MG Capsule 1 capsule Oral ly 3 times a day; Duration: 30 days Active Social History Section Notes: ETOH Use: Social Tob Use: 1/2 PPD x20 years Recreational drug Use: Denies ETOH Use: Social Tob Use: 1/2 PPD x20 years Recreational drug Use: Denies ETOH Use: Social Tob Use: 1/2 PPD x20 years Recreational drug Use: Denies ETOH Use: Social Tob Use: 1/2 PPD x20 years Recreational drug Use: Denies ETOH Use: Social Tob Use: 1/2 PPD x20 years Recreational drug Use: Denies ETOH Use: Social Tob Use: 1/2 PPD x20 years Recreational drug Use: Denies ETOH Use: Social Tob Use: 1/2 PPD x20 years Recreational drug Use: Denies ETOH Use: Social Tob Use: 1/2 PPD x20 years Recreational drug Use: Denies ETOH Use: Social Tob Use: 1/2 PPD x20 years Recreational drug Use: Denies ETOH Use: Social Tob Use: 1/2 PPD x20 years Recreational drug Use: Denies Problems Problem Type SNOMED Code ICD Code Onset Dates Problem Status W/U Status Risk Notes Problem Hyperkalemia (34010487) Hyperkalemia (E87.5) Active confirmed Problem Chronic pain syndrome (690359915) Chronic pain syndrome (G89.4) Active confirmed Problem Centrilobular emphysema (39622711) Centrilobular emphysema (J43.2) Active confirmed Problem Pulmonary nodule (040154542) Pulmonary nodule (R91.1) Active confirmed Problem Breathing painful (04815535) Rib pain on right side (R07.81) Active confirmed Problem Tremor (06899214) Tremor (R25.1) Active confirm ed Problem Chronic fatigue syndrome (83364659) Chronic fatigue (R53.82) Active confirmed Problem Paresthesia (finding) (52961997) Paresthesias (R20.2) Active confirmed Problem Lumbar radiculopathy (921940917) Chronic lumbar radiculopathy (M54.16) Active confirmed Problem Cervical pain (28283841) Cervical pain (M54.2) Active confirmed Problem Mixed anxiety and depressive disorder (404310925) Depression with anxiety (F41.8) Active confirmed Problem 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 Problem Inactive tuberculosis (finding) (68031878) History of latent tuberculosis (Z86.15) Active confirmed Problem Rheumatoid arthritis (12538787) Rheumatoid arthritis involving multiple sites, unspecified whether rheumatoid factor present (M06.9) Active confirmed Problem Rheumatoid arthritis (67210014) Rheumatoid arthritis involving multiple sites with positive rheumatoid factor (M05.79) Active confirmed Problem Lymphadenopathy (74417142) Lymphadenopathy, axillary (R59.0) Active confirmed Problem Cervical spondylosis (152663666) Cervical spondylosis (M47.812) Active confirmed Problem General weakness (99893079) Generalized weakness (R53.1) Active confirmed Problem 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8 and Rock's disease E06.3 [facility] [address] [address] 11/18/2024 IKER ROBLERO Tremor R25.1 ; Cervi veronica spondylosis M47.812 ; Rock's disease E06.3 ; Pain in right arm M79.601 ; Pain in left arm M79.602 ; History of recent fall Z91.81 ; Rheumatoid arthritis involving multiple sites with positive rheumatoid factor M05.79 ; Slipped rib syndrome M94.0 and Depression with anxiety F41.8 [facility] [address] [address] 01/22/2025 CHINO BIRKS Neck pain on right s angela M54.2 ; Rheumatoid arthritis involving multiple sites with positive rheumatoid factor M05.79 ; Slipped rib syndrome M94.0 ; Rock's disease E06.3 and Depression with anxiety F41.8 [facility] [address] 02/03/2025 CHINO BIRKS Lymphadenopathy, axillary R59.0 ; Rheumatoid arthritis involving multiple sites, unspecified whether rheumatoid factor present M06.9 ; Rock's disease E06.3 ; Slipped rib syndrome M94.0 ; Anxiety, generalized F41.1 and Tendon calcification M65.80 [facility] [address] [address] 03/05/2025 IKER ROBLERO Rib pain on right si de R07.81 ; Annual physical exam Z00.00 ; Chronic fatigue R53.82 ; Hyperkalemia E87.5 ; Slipped rib syndrome M94.0 ; Depression with anxiety F41.8 and Rheumatoid arthritis involving multiple sites with positive rheumatoid factor M05.79 [facility] [address] [address] 03/21/2025 IKER ROBLERO Heart palpitations R00.2 ; Weakness R53.1 and Dyspnea on exertion R06.09 [facility] [address] [address] 04/23/2025 IKER ROBLERO Depression with anxi ety F41.8 ; Heavy alcohol use F10.90 ; Chronic pain syndrome G89.4 ; Slipped rib syndrome M94.0 ; Rheumatoid arthritis involving multiple sites with positive rheumatoid factor M05.79 ; Pulmonary nodule R91.1 ; History of latent tuberculosis Z86.15 and Loud snoring R06.83 [facility] [address] [address] 05/05/2025 IKER ROBLERO Spontaneous ecchymos es R23.3 ; Skin tear of left upper extremity S41.112A ; Irregular bowel habits R19.8 ; Depression with anxiety F41.8 ; Chronic pain syndrome G89.4 and Rheumatoid arthritis involving multiple sites with positive rheumatoid factor M05.79 [facility] [address] [facility] [address] [address] 06/18/2025 IKER ROBLERO Chronic pain syndrom e G89.4 ; Cervical pain M54.2 and Recurrent low back pain M54.50 [facility] [address] [address] 09/04/2025 IKER ROBLERO Redness of left eye H57.89 [facility] [address] [address] 10/29/2024 IKER LEDESMAHAM [facility] [address] [address] 11/04/2024 IKER LEDESMAHAM [facility] [address] [address] 11/07/2024 IKER LEDESMAHAM [facility] [address] [address] 11/19/2024 IKER SINGERS GLEN [facility] [address] [address] 12/03/2024 IKER LEDESMAHAM [facility] [address] [address] 12/13/2024 IKER LEDESMAHAM [facility] [address] [address] 12/13/2024 IKER ROBLERO Generalized weakness R53.1 and Paresthesias R20.2 [facility] [address] [address] 12/16/2024 IKER SINGERS GLEN [facility] [address] [place] [address] 12/26/2024 IKER SINGERS GLEN [facility] [address] [place] [address] 12/31/2024 IKER SINGERS GLEN [facility] [address] [place] [address] 01/02/2025 IKER SINGERS GLEN [facility] [address] [place] [address] 01/07/2025 IKER SINGERS GLEN [facility] [address] [place] [address] 01/21/2025 IKER SINGERS GLEN [facility] [address] [place] [address] 01/24/2025 IKER SINGERS GLEN [facility] [address] [place] [address] 02/03/2025 IKER SINGERS GLEN [facility] [address] [place] [address] 02/03/2025 IKER SINGERS GLEN [facility] [address] [place] [address] 02/10/2025 IKER SINGERS GLEN [facility] [address] [place] 03/05/2025 IKER ANNIKA Chronic fatigue R53. 82 ; Elevated lipids E78.5 ; Anemia due to vitamin B12 deficiency, unspecified B12 deficiency type D51.9 and Vitamin D deficiency E55.9 [facility] [address] [place] [address] 03/05/2025 IKER SINGERS GLEN [facility] [address] [place] [address] 03/05/2025 IKER SINGERS GLEN [facility] [address] [place] [address] 03/05/2025 IKER SINGERS GLEN [facility] [address] [place] [address] 03/21/2025 IKER SINGERS GLEN [facility] [address] [place] [address] 03/24/2025 IKER SINGERS GLEN [facility] [address] [place] [address] 04/22/2025 IKER SINGERS GLEN [facility] [address] [place] [address] 04/25/2025 IKER SINGERS GLEN [facility] [address] [place] [address] 05/01/2025 IKER SINGERS GLEN [facility] [address] [place] [address] 05/05/2025 IKER SINGERS GLEN [facility] [address] [place] [address] 05/06/2025 IKER SINGERS GLEN [facility] [address] [place] [address] 05/13/2025 IKER SINGERS GLEN [facility] [address] [place] [address] 05/13/2025 IKER SINGERS GLEN [facility] [address] [place] [address] 06/03/2025 IKER SINGERS GLEN [facility] [address] [place] [address] 06/18/2025 IKER SINGERS GLEN [facility] [address] [place] [address] 06/19/2025 IKER SINGERS GLEN Cervical pain M54.2 ; Cervical spondylosis M47.812 and Chronic pain syndrome G89.[address] [facility] [address] [place] [address] 06/25/2025 IKER SINGERS GLEN [facility] [address] [place] [address] 07/08/2025 IKER SINGERS GLEN [facility] [address] [place] [address] 07/08/2025 IKER SINGERS GLEN [facility] [address] [place] [address] 07/09/2025 IKER SINGERS GLEN [facility] [address] [place] [address] 07/15/2025 IKER SINGERS GLEN Rock's disease E06.3 [facility] [address] [place] [address] 08/14/2025 IKER SINGERS GLEN [facility] [address] [place] [address] 09/04/2025 IKER SINGERS GLEN [facility] [address] [place] [address] 12/09/2024 IKER SINGERS GLEN [facility] [address] [place] [address] 12/13/2024 IKER SINGERS GLEN [facility] [address] [place] [address] 12/14/2024 IKER SINGERS GLEN [facility] [address] [place] [address] 12/14/2024 IKER SINGERS GLEN [facility] [address] [place] [address] 12/15/2024 IKER SINGERS GLEN [facility] [address] [place] [address] 12/18/2024 IKER SINGERS GLEN [facility] [address] [place] [address] 01/01/2025 IKER SINGERS GLEN [facility] [address] [place] [address] 01/21/2025 IKER SINGERS GLEN [facility] [address] [place] [address] 01/27/2025 IKER SINGERS GLEN Breast cancer screen ing by mammogram Z12.31 [facility] [address] [place] [address] 03/21/2025 IKER SINGERS GLEN [facility] [address] [place] [address] 04/30/2025 IKER SINGERS GLEN [facility] [address] [place] [address] 05/01/2025 IKER SINGERS GLEN [facility] [address] [place] [address] 05/01/2025 IKER SINGERS GLEN [facility] [address] [place] [address] 06/06/2025 IKER SINGERS GLEN [facility] [address] [place] [address] 06/09/2025 IKER SINGERS GLEN [facility] [address] [place] [address] 06/14/2025 IKER SINGERS GLEN [facility] [address] [address] 06/20/2025 [facility] [address] [address] 06/23/2025 [facility] [address] [address] 06/30/2025 IKER SINGERS GLEN [facility] [address] [address] 07/12/2025 [facility] Adult general medica l exam Z00.00 and Screening for thyroid disorder Z13.29 [facility] [address] [address] 07/15/2025 IKER SINGERS GLEN [facility] [address] [address] 07/16/2025 IKER SINGERS GLEN [facility] [address] [address] 09/04/2025 IKER SINGERS GLEN Assessments Encounter Date Diagnosis (ICD Code) Assessment [...] Patient reports history of RA. Follows with restaurant culinary manager Dr. Clark out of [place]. Has been treated previously with Humira, Enbrel, [...] was diagnosed by Dr. Dubon out of [place], [place]. Taking methocarbamol 750 mg 3 times [...] reviewed. Dictation completed with the use of [employer] voice recognition software, prone to medical misidentifications [...] Patient reports history of RA. Follows with restaurant culinary manager Dr. Clark out of [place]. Has been treated previously with Humira, Enbrel, [...] was diagnosed by Dr. Dubon out of [place], [place]. Taking methocarbamol 750 mg 3 times [...] reviewed. Dictation completed with the use of [employer] voice recognition software, prone to medical misidentifications [...] for 11/20/2024. #Recent fall: Patient seen at [facility] ED 11/02/2024 s/p fall at work. [...] diffuse joint pain and fatigue. Follows with restaurant culinary manager Dr. Clark out of [place], records requested and not yet available for my review. 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 States this was diagnosed by Dr. Dubon out of [place], [place]. Taking methocarbamol 750 mg 3 times [...] reviewed. Dictation completed with the use of [employer] voice recognition software, prone to medical misidentifications [...] for 11/20/2024. #Recent fall: Patient seen at [facility] ED 11/02/2024 s/p fall at work. [...] diffuse joint pain and fatigue. Follows with restaurant culinary manager Dr. Clark out of [place], records requested and not yet available for my review. 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 States this was diagnosed by Dr. Dubon out of [place], [place]. Taking methocarbamol 750 mg 3 times [...] reviewed. Dictation completed with the use of [employer] voice recognition software, prone to medical misidentifications [...] was diagnosed by Dr. Dubon out of [place]. Taking methocarbamol 750 mg 3 times [...] Dictation was accomplished with the use of [employer] voice recognition software, which is prone to [...] was diagnosed by Dr. Dubon out of [place]. Taking methocarbamol 750 mg 3 times [...] Dictation was accomplished with the use of [employer] voice recognition software, which is prone to [...] was diagnosed by Dr. Dubon out [place]. Taking methocarbamol 750 mg 3 times [...] Dictation was accomplished with the use of [employer] voice recognition software, which is prone to [...] was diagnosed by Dr. Dubon out of [place]. Taking methocarbamol 750 mg 3 times [...] Dictation was accomplished with the use of [employer] voice recognition software, which is prone to [...] rib syndrome: Follows with Dr. Dubon with [facility]. Underwent repair 12/17/2024. #Ventral hernia: Surgical history [...] arthritis: + Rheumatoid factor (152). Follows with restaurant culinary manager Dr. Olaf Kaplan out of [place]. Follow-up labs including CAMILO, ESR/CRP, and comprehensive [...] Follows with psychiatric provider Clarice Lara with [facility]. Taking clonazepam 0.5 mg once daily [...] reviewed. Dictation completed with the use of [employer] voice recognition software, prone to medical misidentifications [...] rib syndrome: Follows with Dr. Dubon with [facility]. Underwent repair 12/17/2024. #Ventral hernia: Surgical history [...] arthritis: + Rheumatoid factor (152). Follows with restaurant culinary manager Dr. Olaf Kaplan out of [place]. Follow-up labs including CAMILO, ESR/CRP, and comprehensive [...] Follows with psychiatric provider Clarice Lara with [facility]. Taking clonazepam 0.5 mg once daily [...] reviewed. Dictation completed with the use of [employer] voice recognition software, prone to medical misidentifications [...] reviewed. Dictation completed with the use of [employer] voice recognition software, prone to medical misidentifications [...] reviewed. Dictation completed with the use of [employer] voice recognition software, prone to medical misidentifications [...] ER follow-up hospital follow-up. María presented to [facility] ED 04/19/2025 with chief complaint of suicidal [...] taking any pain medication. Previously followed with airbrush painter Dr. Trivedi who provided steroid injections. [...] with added opioid use. WIll refer to airbrush painter with goal of establishing safe pain management regimen. #RA: Follows with Olaf Kaplan MD out of [place]. Discussed possibility of chronic pain being related [...] reviewed. Dictation completed with the use of [employer] voice recognition software, prone to medical misidentifications [...] ER follow-up hospital follow-up. María presented to [facility] ED 04/19/2025 with chief complaint of suicidal [...] taking any pain medication. Previously followed with airbrush painter Dr. Trivedi who provided steroid injections. [...] with added opioid use. WIll refer to airbrush painter with goal of establishing safe pain management regimen. #RA: Follows with Olaf Kaplan MD out of [place]. Discussed possibility of chronic pain being related [...] reviewed. Dictation completed with the use of [employer] voice recognition software, prone to medical misidentifications [...] Patient requesting urgent colonoscopy per recommendation of [facility] surgeon Jewel Dubon. On review of Dr. [...] gabapentin TID without symptom improvement. Follows with airbrush painter Dr. Trivedi. Historically the patient has [...] reviewed. Dictation completed with the use of [employer] voice recognition software, prone to medical misidentifications [...] Patient requesting urgent colonoscopy per recommendation of [facility] surgeon Jewel Dubon. On review of Dr. [...] gabapentin TID without symptom improvement. Follows with airbrush painter Dr. Trivedi. Historically the patient has [...] reviewed. Dictation completed with the use of [employer] voice recognition software, prone to medical misidentifications [...] TID without significant symptom improvement. Follows with airbrush painter Dr. Trivedi, orthopedic provider Nichelle Carrillo [...] reviewed. Dictation completed with the use of [employer] voice recognition software, prone to medical misidentifications [...] TID without significant symptom improvement. Follows with airbrush painter Dr. Trivedi, orthopedic provider Nichelle Carrillo [...] reviewed. Dictation completed with the use of [employer] voice recognition software, prone to medical misidentifications [...] Z00.00) 07/15/2025 Rock's disease (ICD-10 - E06.3) 09/04/2025 Redness of left eye (ICD-10 - H57.89) María is a 60-year-old female with a PMH of RA, slipped rib syndrome, chronic pain that presents today for evaluation of redness on her left eyelid and gritty sensation in the left eye x 1 day. On exam there is mild conjunctival injection on the left. There is also a small raised area affecting the medial aspect of the left upper eyelid that is violaceous in color. The eye EOMI, PERRL. Patient encouraged to treat conservatively with warm compresses and avoidance of any cosmetics/soaps in the area. Will also send Rx for Polymyxin B-Trimethoprim Solution to use up to 4 times daily x 3 days. Should symptoms not improve or should she develop symptoms including but not limited to headache, visual disturbance, pain with eye movement, flashes/floaters, or should the lesion on her eyelid spread to include a larger surface area she is encouraged to contact the office. Also encouraged to follow-up with eye doctor. All questions answered to the patients satisfaction. Patient demonstrates understanding of diagnosis and treatments discussed. Follow-up at next scheduled appointment, sooner should any questions/concerns arise. Case discussed with collaborating physician Velia Morrison who has reviewed the assessment/plan. Chart, medications, labs, and vital signs reviewed. Dictation completed with the use of [employer] voice recognition software, prone to medical misidentifications and grammatical errors. All errors are unintentional. Although the practitioner does try to identify and correct errors, some may be present. Please do not hesitate to contact the practitioner for clarification. 03/05/2025 Elevated lipids (ICD-10 - E78.5) 07/12/2025 [...] TID without significant symptom improvement. Follows with airbrush painter Dr. Trivedi, orthopedic provider Nichelle Carrillo [...] reviewed. Dictation completed with the use of [employer] voice recognition software, prone to medical misidentifications [...] Patient requesting urgent colonoscopy per recommendation of [facility] surgeon Jewel Dubon. On review of Dr. [...] Fernandez once weekly and psychiatric provider Clarice Barlar regularly. Discontinued Zoloft due to development of [...] gabapentin TID without symptom improvement. Follows with airbrush painter Dr. Trivedi. Historically the patient has [...] reviewed. Dictation completed with the use of [employer] voice recognition software, prone to medical misidentifications [...] reviewed. Dictation completed with the use of [employer] voice recognition software, prone to medical misidentifications [...] ER follow-up hospital follow-up. María presented to [facility] ED 04/19/2025 with chief complaint of suicidal [...] taking any pain medication. Previously followed with airbrush painter Dr. Trivedi who provided steroid injections. [...] with added opioid use. WIll refer to airbrush painter with goal of establishing safe pain management regimen. #RA: Follows with Olaf Kaplan MD out of [place]. Discussed possibility of chronic pain being related [...] reviewed. Dictation completed with the use of [employer] voice recognition software, prone to medical misidentifications [...] rib syndrome: Follows with Dr. Dubon with [facility]. Underwent repair 12/17/2024. #Ventral hernia: Surgical history [...] arthritis: + Rheumatoid factor (152). Follows with restaurant culinary manager Dr. Olaf Kaplan out of [place]. Follow-up labs including CAMILO, ESR/CRP, and comprehensive [...] Follows with psychiatric provider Clarice Lara with [facility]. Taking clonazepam 0.5 mg once daily [...] reviewed. Dictation completed with the use of [employer] voice recognition software, prone to medical misidentifications [...] was diagnosed by Dr. Dubon out of [place], [place]. Taking methocarbamol 750 mg 3 times [...] Dictation was accomplished with the use of [employer] voice recognition software, which is prone to [...] was diagnosed by Dr. Dubon out of [place], [place]. Taking methocarbamol 750 mg 3 times [...] Dictation was accomplished with the use of [employer] voice recognition software, which is prone to [...] for 11/20/2024. #Recent fall: Patient seen at [facility] ED 11/02/2024 s/p fall at work. [...] diffuse joint pain and fatigue. Follows with restaurant culinary manager Dr. Clark out of [place], records requested and not yet available for my review. 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 States this was diagnosed by Dr. Dubon out of [place], [place]. Taking methocarbamol 750 mg 3 times [...] reviewed. Dictation completed with the use of [employer] voice recognition software, prone to medical misidentifications [...] Patient reports history of RA. Follows with restaurant culinary manager Dr. Clark out of [place]. Has been treated previously with Humira, Enbrel, [...] was diagnosed by Dr. Dubon out of [place], [place]. Taking methocarbamol 750 mg 3 times [...] reviewed. Dictation completed with the use of [employer] voice recognition software, prone to medical misidentifications [...] for 11/20/2024. #Recent fall: Patient seen at [facility] ED 11/02/2024 s/p fall at work. [...] diffuse joint pain and fatigue. Follows with restaurant culinary manager Dr. Clark out of [place], records requested and not yet available for my review. 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 States this was diagnosed by Dr. Dubon out of [place], [place]. Taking methocarbamol 750 mg 3 times [...] reviewed. Dictation completed with the use of [employer] voice recognition software, prone to medical misidentifications [...] Patient reports history of RA. Follows with restaurant culinary manager Dr. Clark out of [place]. Has been treated previously with Humira, Enbrel, [...] was diagnosed by Dr. Dubon out of [place], [place]. Taking methocarbamol 750 mg 3 times [...] reviewed. Dictation completed with the use of [employer] voice recognition software, prone to medical misidentifications [...] was diagnosed by Dr. Dubon out of [place]. Taking methocarbamol 750 mg 3 times [...] Dictation was accomplished with the use of [employer] voice recognition software, which is prone to [...] was diagnosed by Dr. Dubon out of [place]. Taking methocarbamol 750 mg 3 times [...] Dictation was accomplished with the use of [employer] voice recognition software, which is prone to [...] rib syndrome: Follows with Dr. Dubon with [facility]. Underwent repair 12/17/2024. #Ventral hernia: Surgical history [...] arthritis: + Rheumatoid factor (152). Follows with restaurant culinary manager Dr. Olaf Kaplan out of [place]. Follow-up labs including CAMILO, ESR/CRP, and comprehensive [...] Follows with psychiatric provider Clarice Lara with [facility]. Taking clonazepam 0.5 mg once daily [...] reviewed. Dictation completed with the use of [employer] voice recognition software, prone to medical misidentifications [...] Patient requesting urgent colonoscopy per recommendation of [facility] surgeon Jewel Dubon. On review of Dr. [...] gabapentin TID without symptom improvement. Follows with airbrush painter Dr. Trivedi. Historically the patient has [...] reviewed. Dictation completed with the use of [employer] voice recognition software, prone to medical misidentifications [...] ER follow-up hospital follow-up. María presented to [facility] ED 04/19/2025 with chief complaint of suicidal [...] taking any pain medication. Previously followed with airbrush painter Dr. Trivedi who provided steroid injections. [...] with added opioid use. WIll refer to airbrush painter with goal of establishing safe pain management regimen. #RA: Follows with Olaf Kaplan MD out of [place]. Discussed possibility of chronic pain being related [...] reviewed. Dictation completed with the use of [employer] voice recognition software, prone to medical misidentifications [...] Patient requesting urgent colonoscopy per recommendation of [facility] surgeon Jewel Dubon. On review of Dr. [...] gabapentin TID without symptom improvement. Follows with airbrush painter Dr. Trivedi. Historically the patient has [...] reviewed. Dictation completed with the use of [employer] voice recognition software, prone to medical misidentifications [...] ER follow-up hospital follow-up. María presented to [facility] ED 04/19/2025 with chief complaint of suicidal [...] taking any pain medication. Previously followed with airbrush painter Dr. Trivedi who provided steroid injections. [...] with added opioid use. WIll refer to airbrush painter with goal of establishing safe pain management regimen. #RA: Follows with Olaf Kaplan MD out of [place]. Discussed possibility of chronic pain being related [...] reviewed. Dictation completed with the use of [employer] voice recognition software, prone to medical misidentifications [...] rib syndrome: Follows with Dr. Dubon with [facility]. Underwent repair 12/17/2024. #Ventral hernia: Surgical history of ventral hernia repair (2018). Reports that following the procedure to correct slipped rib (12/2024) she has had a sensation of burning across the abdomen. Dr. Dubon has initiated a workup including imaging which revealed the presence of numerous surgical clips (not placed during revision of slipped rib). Per patient, it is Dr. uDbon's recommendation that a revision of her ventral hernia repair take place with goal of removing excess surgical clips and improving the patient's symptoms. Records requested for review. #Rheumatoid arthritis: + Rheumatoid factor (152). Follows with restaurant culinary manager Dr. Olaf Kaplan out of [place]. Follow-up labs including CAMILO, ESR/CRP, and comprehensive [...] Follows with psychiatric provider Clarice Lara with [facility]. Taking clonazepam 0.5 mg once daily [...] reviewed. Dictation completed with the use of [employer] voice recognition software, prone to medical misidentifications [...] was diagnosed by Dr. Dubon out of [place], [place]. Taking methocarbamol 750 mg 3 times [...] Dictation was accomplished with the use of [employer] voice recognition software, which is prone to [...] was diagnosed by Dr. Dubon out of [place]. Taking methocarbamol 750 mg 3 times [...] Dictation was accomplished with the use of [employer] voice recognition software, which is prone to [...] for 11/20/2024. #Recent fall: Patient seen at [facility] ED 11/02/2024 s/p fall at work. [...] diffuse joint pain and fatigue. Follows with restaurant culinary manager Dr. Clark out of [place], records requested and not yet available for my review. 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 States this was diagnosed by Dr. Dubon out of [place], [place]. Taking methocarbamol 750 mg 3 times [...] reviewed. Dictation completed with the use of [employer] voice recognition software, prone to medical misidentifications [...] Patient reports history of RA. Follows with restaurant culinary manager Dr. Clark out of [place]. Has been treated previously with Humira, Enbrel, [...] was diagnosed by Dr. Dubon out of [place]. Taking methocarbamol 750 mg 3 times [...] reviewed. Dictation completed with the use of [employer] voice recognition software, prone to medical misidentifications [...] for 11/20/2024. #Recent fall: Patient seen at [facility] ED 11/02/2024 s/p fall at work. [...] diffuse joint pain and fatigue. Follows with restaurant culinary manager Dr. Clark out of [place], records requested and not yet available for my review. 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 States this was diagnosed by Dr. Dubon out of [place], [place]. Taking methocarbamol 750 mg 3 times [...] reviewed. Dictation completed with the use of [employer] voice recognition software, prone to medical misidentifications [...] Patient reports history of RA. Follows with restaurant culinary manager Dr. Clark out of [place]. Has been treated previously with Humira, Enbrel, [...] was diagnosed by Dr. Dubon out of [place]. Taking methocarbamol 750 mg 3 times [...] reviewed. Dictation completed with the use of [employer] voice recognition software, prone to medical misidentifications [...] was diagnosed by Dr. Dubon out of [place]. Taking methocarbamol 750 mg 3 times [...] Dictation was accomplished with the use of [employer] voice recognition software, which is prone to [...] rib syndrome: Follows with Dr. Dubon with [facility]. Underwent repair 12/17/2024. #Ventral hernia: Surgical history [...] arthritis: + Rheumatoid factor (152). Follows with restaurant culinary manager Dr. Olaf Kaplan out of [place]. Follow-up labs including CAMILO, ESR/CRP, and comprehensive [...] Follows with psychiatric provider Clarice Lara with [facility]. Taking clonazepam 0.5 mg once daily [...] reviewed. Dictation completed with the use of [employer] voice recognition software, prone to medical misidentifications [...] Patient requesting urgent colonoscopy per recommendation of [facility] surgeon Jewel Dubon. On review of Dr. [...] gabapentin TID without symptom improvement. Follows with airbrush painter Dr. Trivedi. Historically the patient has [...] reviewed. Dictation completed with the use of [employer] voice recognition software, prone to medical misidentifications [...] ER follow-up hospital follow-up. María presented to [facility] 04/19/2025 with chief complaint of suicidal ideation [...] taking any pain medication. Previously followed with airbrush painter Dr. Trivedi who provided steroid injections. [...] with added opioid use. WIll refer to airbrush painter with goal of establishing safe pain management regimen. #RA: Follows with Olaf Kaplan MD out of [place]. Discussed possibility of chronic pain being related [...] reviewed. Dictation completed with the use of [employer] voice recognition software, prone to medical misidentifications [...] ER follow-up hospital follow-up. María presented to [facility] ED 04/19/2025 with chief complaint of suicidal [...] taking any pain medication. Previously followed with airbrush painter Dr. Trivedi who provided steroid injections. [...] with added opioid use. WIll refer to airbrush painter with goal of establishing safe pain management regimen. #RA: Follows with Olaf Kaplan MD out of [place]. Discussed possibility of chronic pain being related [...] reviewed. Dictation completed with the use of [employer] voice recognition software, prone to medical misidentifications [...] rib syndrome: Follows with Dr. Dubon with [facility]. Underwent repair 12/17/2024. #Ventral hernia: Surgical history [...] arthritis: + Rheumatoid factor (152). Follows with restaurant culinary manager Dr. Olaf Kaplan out of [place]. Follow-up labs including CAMILO, ESR/CRP, and comprehensive [...] Follows with psychiatric provider Clarice Lara with [facility]. Taking clonazepam 0.5 mg once daily [...] reviewed. Dictation completed with the use of [employer] voice recognition software, prone to medical misidentifications [...] for 11/20/2024. #Recent fall: Patient seen at [facility] ED 11/02/2024 s/p fall at work. [...] diffuse joint pain and fatigue. Follows with restaurant culinary manager Dr. Clark out of [place], records requested and not yet available for my review. 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 States this was diagnosed by Dr. Dubon out of [place], [place]. Taking methocarbamol 750 mg 3 times [...] reviewed. Dictation completed with the use of [employer] voice recognition software, prone to medical misidentifications [...] for 11/20/2024. #Recent fall: Patient seen at [facility] ED 11/02/2024 s/p fall at work. [...] diffuse joint pain and fatigue. Follows with restaurant culinary manager Dr. Clark out of [place], records requested and not yet available for my review. 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 States this was diagnosed by Dr. Dubon out of [place]. Taking methocarbamol 750 mg 3 times [...] reviewed. Dictation completed with the use of [employer] voice recognition software, prone to medical misidentifications [...] ER follow-up hospital follow-up. María presented to [facility] ED 04/19/2025 with chief complaint of suicidal [...] taking any pain medication. Previously followed with airbrush painter Dr. Trivedi who provided steroid injections. [...] with added opioid use. WIll refer to airbrush painter with goal of establishing safe pain management regimen. #RA: Follows with Olaf Kaplan MD out of [place]. Discussed possibility of chronic pain being related [...] reviewed. Dictation completed with the use of [employer] voice recognition software, prone to medical misidentifications [...] for 11/20/2024. #Recent fall: Patient seen at [facility] ED 11/02/2024 s/p fall at work. [...] diffuse joint pain and fatigue. Follows with restaurant culinary manager Dr. Clark out of [place], records requested and not yet available for my review. 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 States this was diagnosed by Dr. Dubon out of [place], [place]. Taking methocarbamol 750 mg 3 times [...] reviewed. Dictation completed with the use of [employer] voice recognition software, prone to medical misidentifications [...] 12/13/2024 Anti-Lakisha-1 12/13/2024 CAMILO w/Reflex 10/28/2024 ESR 12/13/2024 ESR 10/28/2024 Ultrasound : Neck 01/22/2025 MRI : Cervical [...] TSH W/REFLEX TO FT4 03/05/2025 VITAMIN D,25-OH,TOTAL,IA 10/28/2024 VITAMIN D,25-OH,TOTAL,IA 03/05/2025 FOLATE 03/05/2025 FOLATE 05/05/2025 CR Spine Cervical Min 4 Views 11/18/2024 US Soft Tissue Head Neck 02/03/2025 Comp. Metabolic Panel [id number] Anti-Mi-2 Ab (RDL)-[id number] 12/13/2024 Anti-Ro (SS-A) Ab (RDL)-[id number] 5 Anti-La (SS-B) Ab (RDL)-[id number] 5 CREATINE KINASE AND CKMB 12/13/2024 XR WRIST 3+ VIEWS RIGHT 09/15/2025 Insurance Providers Payer Name Payer Address Payer Phone Subscriber Number Group Number Insured Name Patient Relationship to Insured Coverage Start Date Coverage End Date [facility] [address] [address] [place] [address] [id number] María Phillips Self - patient is [...]
== END 2025-09-16 06:27 | disposition home or self-care (01) ==
LOC: CF 06:26
PROVIDERS: Visit Provider Anesthesiology
DX: M53.3 Sacrococcygeal disorders, not elsewhere classified (principal)
CPT/HCPCS: 27096; J2003; J2795; Q9967

== ENCOUNTER 2025-09-16 15:05 | Outpatient (AMB) | payer OTHER, SELFPAY ==
--- OUTSIDE RECORDS SUMMARY | 2024-08-06 07:23 | XMS_ITS | Encounter Summary ---
Author Organization [facility] Address [address] [place] [address] Care Team Providers Care Manufacturing Engineer Automotive Name Role Phone Unavailable Primary Care Provider Unavailabl e Encounter Details Date Type Department Care Team (Late st Contact Info) Description 08/06/2024 8:23 AM EDT Hospital Encounter TH HISTORIC ENCOUNTERS EASTERN CONVERSION ONLY Tutu Trivedi MD [address] [place] [address] Social History Tobacco Use Types Packs/Day Years [...] 4:01 PM EDT Karin Vera RN * [place] Suicide Severity Rating Scale (Screener/Recent Self-Report) Question [...] Care Team (Late st Contact Info) Description 09/23/2025 3:45 PM EST Office Visit Orthopedic Surgery - [place] [address] [address] Bessy Mesa MD [address] [address] documented as of this encounter Goals Goal Patient Goal Type Associated Problems Recent Progress Patient-Stated? Author OT 6-8 visits General No change(2024 4:47 PM EST) No Nichelle Milian OT Note: 1> Indep HEP (splint weaning, ROM, pain manage, eventual strength) 09/11 Ongoing 2. Dominant R senior manager strength at least 35# (vs 20initial, vs [...]
--- OUTSIDE RECORDS SUMMARY | 2025-09-11 12:30 | XMS_ITS | Encounter Summary ---
Author Organization [facility] Address [address] [place] [address] Care Team Providers Care Seismic Prospecting Observer Helper Name Role Phone Araceli Augustin Primary Care Provider + Reason for Visit * Therapy (Routine) - Authorized Specialty Diagnoses / Procedures Referred By Corine strange Referred To Contact Occupational Therapy Diagnoses Osteochondrosis of lunate of left wrist Surgery follow-up Bessy Mesa MD Phone: tel: fax: Referral ID Status Reason Start Date Expiration Date Visits Requested Visits Authorized [id number] Authorized Consult and Treat 08/12/2025 08/12/2026 6 6 Encounter Details Date Type Department Care Team (Latest Contact Info) Description 09/11/2025 12:30 PM EST [facility] [address] [phone] Nichelle Milian, OT Osteochondrosis of carpal lunate [...] Milian, OT - 09/11/2025 12:30 PM EST [facility] - Outpatient OCCUPATIONAL THERAPY DAILY TREATMENT NOTE Date: 09/11/2025 Visit Number: 4 Patient Name: María Phillips : 1965 Age: 60 y.o. Gender: female Diagnosis: ICD-10-CM ICD-9-CM 1. 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 Precautions: orders for ROM and strengthening SUBJECTIVE Subjective Report: Called Dr Mesa again to report that the pain is unbearable, there has to be something else going on b/c I hurt everywhere Pain: R wrist 06/15 OBJECTIVE R automobile mechanic assistant =27# AROM wrist ext=52, flex =25 TREATMENT INTERVENTION Fluidotherapy for desensitization and wrist ROM w/ soothing effects of heat Gentle AAROM wrist flex/ext/circumduction Initiated light automobile mechanic assistant strength w/ yellow theraputty; pt reported increased pain after 30 sec. Issuedand advised can use to tolerance/should avoid increasing pain further Pain Reassessment: remained elevated Assessment/Response To Treatment: Difficult to advance pt at this point d/t high resting pain levels She is indep w/ self-AAROm of wrist and has automobile mechanic assistant strength HEP if/when tolerates Patient Education: Education [...] eventual strength) 09/11 Ongoing 2. Dominant R automobile mechanic assistant strength at least 35# (vs 20initial, vs [...] PM EST Office Visit Orthopedic Surgery - [place] 175 [facility] [address] [place] [address] Bessy Mesa MD 175 [facility] [address] [place] [address] documented as of this encounter Goals Goal Patient Goal Type Associated Problems Recent Progress Patient-Stated? Author OT 6-8 visits General No change(2024 4:47 PM EST) No Nichelle Milian OT Note: 1> Indep HEP (splint weaning, ROM, pain manage, eventual strength) 11/ Ongoing 2. Dominant R automobile mechanic assistant strength at least 35# (vs 20initial, vs [...] Primary documented in this encounter Care Teams Seismic Prospecting Observer Helper Relationship Specialty Start Date End Date Araceli Augustin PA 299 [facility] [address] [place] [phone] PCP - General 11/20/24 documented as of this encounter
--- OUTSIDE RECORDS SUMMARY | 2025-09-15 15:45 | XMS_ITS | Encounter Summary ---
Author Organization [facility] Address [address] [place] [address] Care Team Providers Care Electronic Assembler Group Leader Name Role Phone Araceli Augustin Primary Care Provider + Reason for Visit * Reason Comments Follow-up Encounter Details Date Type Department Care Team ([facility] st Contact Info) Description 09/15/2025 3:45 PM EST Office Visit Orthopedic Surgery - [place] [address] [address] Bessy Mesa MD [address] [phone] Avascular necrosis of lunate bone of right [...] urgent visit. She had contacted us through [employer]. She had worsening wrist pain enough where [...] in the month for an MRI at [place]. This was ordered by her gm/svp global publisher business. Patient was just started on HRT therapy [...] they can move it up over at [place]. If they cannot maybe we can get it scheduled here at [facility]. I did offer the patient a [...] osteoarthritis of left knee (10/03/2023), Rheumatoid arthritis ([facility] V24,[facility] V28) (12/25/2020), Throat pain, and Thyroid nodule [...] PM EST Office Visit Orthopedic Surgery - [place] 175 [facility] [address] [place] [address] Bessy Mesa MD 175 [facility] 140 [place] [address] documented as of this encounter Goals Goal Patient Goal Type Associated Problems Recent Progress Patient-Stated? Author OT 6-8 visits General No change(2024 4:47 PM EST) No Nichelle Milian OT Note: 1> Indep HEP (splint weaning, ROM, pain manage, eventual strength) 09/11 Ongoing 2. Dominant R conservation officer strength at least 35# (vs 20initial, [...] documented as of this encounter Care Teams Electronic Assembler Group Leader Relationship Specialty Start Date End Date Araceli Augustin PA [address] [place] [phone] PCP - General 11/20/24 documented as of this encounter
--- NOTE | 2025-09-16 15:10 | MHC.OFFVIS ---
Vital Signs 09/16/25 15:14 09/16/25 16:00 Height 5 ft 4 in Weight 170 lb BMI 29.2 BP 141/78 H 159/86 H Blood Pressure Location Lt brachial Lt brachial Position Sitting Sitting Respiration 16 16 Pulse 90 91 Pulse Source Pulse Oximeter Pulse Oximeter Pulse Oximetry (%) 99 100 Oxygen Delivery Method Room Air Room Air Intake Visit Reasons: Bilateral diagnostic SIJ injections Allergies erythromycin base Allergy (Verified 08/21/25 14:01) Hives etanercept (From Enbrel) Adverse Reaction (Intermediate, Verified 08/21/25 14:01) diverticulitis leflunomide Adverse Reaction (Intermediate, Verified 08/21/25 14:01) diverticulitis prednisone Adverse Reaction (Intermediate, Verified 08/21/25 14:01) Body pain gabapentin Adverse Reaction (Mild, Verified 08/21/25 14:01) tremors PFSH Medical History Dermatographia Helicobacter pylori (H. 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 Sacroiliac joint pain Tendonitis of ankle, right Surgical History H/O decompression of ulnar nerve History of surgery Social History Household Members: Spouse and Family Housing: House Alcohol intake: current Alcohol intake frequency: a few times a month Patient Tobacco Use Status: Current everyday Tobacco user Tobacco use type: Cigarette Cigarettes Per Day: 10 Years Smoked: 15 years e-Cigarette/Vaping Use: Never Used service: No Current occupational status: employed 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 Physical Exam Vital Signs: Last Vital Signs Pulse 91 09/16/25 16:00 Resp 16 09/16/25 16:00 BP 159/86 H 09/16/25 16:00 Pulse Ox 100 09/16/25 16:00 Oxygen Delivery Method Room Air 09/16/25 16:00 BMI result Body Mass Index 29.2 Assessment & Plan Assessment & Plan (1) Pain of both sacroiliac joints: Code(s): M53.3 - Sacrococcygeal disorders, not elsewhere classified Category: Medical Plan Bilateral diagnostic sacroiliac joint injection. the risks, benefits and alternatives were discussed with the patient and informed consent was obtained, patient was placed in the prone position and padded to foster comfort. Time out was performed delineating correct site and side of the procedure , name and of the patient, patient participated in time out procedure. The lower back and upper buttocks of the patient were prepped with ChloraPrep and draped with sterile self adhesive utility towels. C-arm was brought over the operating field and picture of the right SI joint was demonstrated on the screen. Tilting C-arm contralateral to the left the posterior silhouette of the sacroiliac joint was superimposed on anterior silhouette of the sacroiliac joint. The point slightly medial to the sacroiliac joint silhouette was inserted with 22 gauge 3-1/2 inch spinal needle, it was advanced through the skin wheal and advanced toward the sacroiliac joint in tunnel vision fashion. When the needle entered the sacroiliac joint capsule injection of the contrast was performed delineating intra-articular and minimally periarticular spread of the contrast. After that injection of the treatment solution of ropivacaine 0.5% 5 cc into the joint was performed. After that the procedure was performed on the left sacroiliac joint in mirroring fashion. Upon completion of the injection needle was withdrawn sterile Band-Aid was applied. The patient tolerated the procedure well. Orders: Orders FL guidance in treatment room Today M53.3 - Sacrococcygeal disorders, not elsewhere classified Coding Level of Care Code Procedure Only Diagnoses Pain of both sacroiliac joints M53.3
[2025-09-16 15:14] VITALS: BP 141/78; PULSE 90; RESP 16; O2SAT 99; BMI 29.2
[2025-09-16 16:00] VITALS: BP 159/86; PULSE 91; RESP 16; O2SAT 100
--- OUTSIDE RECORDS SUMMARY | 2025-09-16 16:48 | XMS_ITS | Clinical Summary ---
Author Organization [facility] Address [address] [place] [address] Phone Care Team Providers Care Fender Mechanic Name Role Phone Vee Allan MD Primary [...] Medical Devices Not on file Care Teams Fender Mechanic Relationship Specialty Start Date End Date Vee Allan MD [address] [place] [phone] PCP - General Internal Medicine 09/01/20 Additional Source Comments The information contained in this document represents components of the legal health record. It is not the complete legal health record.[facility]
--- OUTSIDE RECORDS SUMMARY | 2025-09-16 16:48 | XMS_ITS | Encounter Summary ---
Author Organization [facility] Address [address] [place] [address] Care Team Providers Care Film Processor Name Role Phone Araceli Augustin Primary Care Provider + Encounter Details Date Type Department Care Team ([facility] st Contact Info) Description 08/06/2025 Results Follow-Up Gastroenterology - [place] 175 [facility] 175 [facility] [address] [place] [address] Gia Lance, NICOLE 299 [facility] [address] [place] [address] Social History Tobacco Use Types Packs/Day Years [...] 3:45 PM EST Office Visit Orthopedic Surgery [facility] 175 [facility] 140 [place] [phone] Bessy Mesa MD 175 [facility] 140 [place] [phone] documented as of this encounter Visit Diagnoses Not on filedocumented in this encounter Care Teams Film Processor Relationship Specialty Start Date End Date Araceli Augustin PA [address] [place] [phone] PCP - General 11/20/24 documented as of this encounter
--- OUTSIDE RECORDS SUMMARY | 2025-09-16 16:49 | XMS_ITS | Encounter Summary ---
Author Organization [facility] Address [address] [place] [address] [place] [phone] Phone Care Team Providers Care Manufacturing Test Technician Name Role Phone Vee Allan MD Primary Care Pr ovider Encounter Details Date Type Department Care Team (Late st Contact Info) Description 10/08/[address] [facility] - Orthopaedics Outpatient Practice 52 Replaced By [facility], 1st Floor, [address] [place] [address] Finn Bone MD [address] [place] [phone] [email or web address] Hand joint pain Social History [...] hand documented in this encounter Care Teams Manufacturing Test Technician Relationship Specialty Start Date End Date Vee Allan MD [address] [place] [phone] PCP - General Internal Medicine 09/01/20 documented as of this encounter Additional Source Comments The information contained in this document represents components of the legal health record. It is not the complete legal health record.[facility]
--- OUTSIDE RECORDS SUMMARY | 2025-09-16 16:49 | XMS_ITS | Encounter Summary ---
Author Organization [facility] Address [address] [place] [address] Care Team Providers Care Construction Representative Name Role Phone Araceli Augustin Primary Care Provider + Reason for Visit * Reason Onset Date Comments My chart message 09/15/2025 Encounter Details Date Type Department Care Team ([facility] st Contact Info) Description 09/15/2025 Telephone Orthopedic Surgery - [place] [address] 175 [facility] 250 [place] [address] Bessy Mesa MD 175 [facility] 140 [place] [phone] Social History Tobacco Use Types Packs/Day Years [...] Please call patient with any questions @ [phone]. Thanks. documented in this encounter Plan of Treatment Upcoming Encounters Date Type Department Care Team (Late st Contact Info) Description 09/23/2025 3:45 PM EST Office Visit Orthopedic Surgery - [place] 175 [facility] 140 [place] [address] Bessy Mesa MD 175 [facility] 140 [place] [address] documented as of this encounter Goals Goal Patient Goal Type Associated Problems Recent Progress Patient-Stated? Author OT 6-8 visits General No change(2024 4:47 PM EST) No Nichelle Milian, OT Note: 1> Indep HEP (splint weaning, ROM, pain manage, eventual strength) 09/11 Ongoing 2. Dominant R cooker cleaner strength at least 35# (vs 20initial, vs [...] on filedocumented in this encounter Care Teams Construction Representative Relationship Specialty Start Date End Date Araceli Augustin PA 299 [facility] [address] [place] [phone] PCP - General 11/20/24 documented as of this encounter
--- OUTSIDE RECORDS SUMMARY | 2025-09-16 16:49 | XMS_ITS | Encounter Summary ---
Author Organization [facility] Address [address] [place] [address] Care Team Providers Care Cake Inspector Name Role Phone Araceli Augustin Primary Care Provider + Encounter Details Date Type Department Care Team ([facility] st Contact Info) Description 09/11/2025 Telephone Orthopedic Surgery - [place] [address] 175 [facility] 250 [place] [address] Bessy Mesa MD 175 [facility] 140 [place] [phone] Social History Tobacco Use Types Packs/Day Years [...] other joint issues. Pt going to [facility] Will be seeing Rheumatology. Has [...] PM EST Office Visit Orthopedic Surgery - [place] [address] [address] Bessy Mesa MD [address] [phone] documented as of this encounter Goals Goal Patient Goal Type Associated Problems Recent Progress Patient-Stated? Author OT 6-8 visits General No change(2024 4:47 PM EST) No Nichelle Milian, OT Note: 1> Indep HEP (splint weaning, ROM, pain manage, eventual strength) 09/11 Ongoing 2. Dominant R middleware engineer strength at least 35# (vs 20initial, vs [...] on filedocumented in this encounter Care Teams Cake Inspector Relationship Specialty Start Date End Date Araceli Augustin PA [address] [place] [phone] PCP - General 11/20/24 documented as of this encounter
--- OUTSIDE RECORDS SUMMARY | 2025-09-16 16:49 | XMS_ITS | Encounter Summary ---
Author Organization [facility] Address [address] [place] [address] [place] [address] Phone Care Team Providers Care Sign Out Clerk Name Role Phone Vee Allan MD Primary Care Pr ovider Encounter Details Date Type Department Care Team (Late st Contact Info) Description 10/08/2020 Ancillary Orders [facility] - Orthopaedics Outpatient Practice 52 [facility], 1st Floor, [address] [place] [address] Finn Bone MD [address] [place] [phone] [email or web address] Hand joint pain Social History [...] hand documented in this encounter Care Teams Sign Out Clerk Relationship Specialty Start Date End Date Vee Allan MD [address] [place] [phone] PCP - General Internal Medicine 09/01/20 documented as of this encounter Additional Source Comments The information contained in this document represents components of the legal health record. It is not the complete legal health record.[facility]
--- OUTSIDE RECORDS SUMMARY | 2025-09-16 16:49 | XMS_ITS | Continuity of Care Document ---
Author Organization [facility] [address] [facility] [address] [place] [address] Phone [phone] Care Team Providers Care Clinical Psychiatrist Name Role Phone Vee Queen M.D Care Team Informa tijolanta Optometric Coordinator [phone] Problems Active Problems Provider Date Anxiety Eric [...] Medications SIG Qnty Indications Ordering Provider Date [id number] Tablets 1 tabs by mouth at 11pm 1tabs Eric Shah M.D. 12/01/2022 [id number] Capsules Take 1 Capsule By Mouth 2 Times A Day Terence Olvera MD [id number] g TBPK follow package directions Unknown Vital Signs Date Vital Result Comment 12/01/2022 11:00am BP Systolic 130 mmHg BP Diastolic 70 mmHg Heart Rate 72 /min Height 64 inches 5'4 Weight 185.00 lb BMI (Body Mass Index) 31.8 kg/m2 Results Test Acquired Date Facility Test Result H/L Range N ote Cortisol 01/20/2023 [facility] Refer ce Lab Cortisol 0.6 g/dL 1 Cortisol 01/06/2023 [facility] Refer ce Lab Cortisol <pending> Cortisol 01/05/2023 [facility] Referen ce Lab Cortisol 5.3 g/dL 2 Free T4 01/05/2023 [facility] Referen ce Lab Free T4 0.98 ng/dL (0.70-1.80) TSH [facility] 0.52 uIU/mL (0.4-4.2) Free T4 01/04/2023 [facility] Referen ce Lab Free T4 <pending> TSH 01/04/2023 [facility] ce Lab TSH <pending> 1 Reference Range: [...]
--- OUTSIDE RECORDS SUMMARY | 2025-09-16 16:49 | XMS_ITS | Clinical Summary ---
Author Organization [facility] Address [address] [place] [address] Phone Care Team Providers Care Rn Flight Name Role Phone Araceli Augustin Primary Care [...] necrosis of lunate bone of right wrist (CMS/[facility] V24, CMS/[facility] V28) 06/24/2025 Osteochondrosis of lunate of left wrist 06/21/20 25 Suicidal ideation 04/21/2025 Chronic right-sided thoracic back pain 5 Acute bilateral low back pain with bilateral sci atica 01/02/2025 Assessment & Plan (01/02/2025 5:46 PM EST): Ms. Phillips describes increasing issues with her lower back and legs. The lumbar CT from [facility] show degenerative disc disease but not stenosis. Her description of paresthesias and leg shaking raise concerns for stenosis. Her workup at the [facility] ER did not correlate with cauda equina syndrome. She is now awaiting a lumbar spine MRI at [place]. I be happy to review that once [...] this, is currently seeing 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 (CMS/HCC V24, CMS/HCC V28) (Primary Dx) 09/15/2025 Telephone Orthopedic Surgery [facility] [address] [phone] Bessy Mesa MD 09/11/2025 12:30 PM EST [facility] [address] [phone] Nichelle Milian, NORAH 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) 09/11/2025 Telephone Orthopedic Surgery [facility] [address] [phone] Bessy Mesa MD 09/04/2025 12:30 PM EDT [facility] [address] [phone] Shanell Bowen COTA/Ulices 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) 08/28/2025 1:30 PM EDT [facility] [address] [phone] Nichelle Milian, OT 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) 08/21/2025 12:00 PM EDT Evaluation [facility] Occupational Therapy 175 [facility] 350 [place] [phone] Nichelle Milian OT 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) 08/14/2025 3:30 PM EDT Office Visit Orthopedic Surgery [facility] 250 175 [facility] 250 [place] [phone] Von Mcclure MD Knee pain (Primary Dx); Post-traumatic osteoarthritis of left knee; Primary osteoarthritis of right knee 08/13/2025 Telephone Gastroenterology [facility] 175 [facility] 175 [facility] [address] [place] [phone] Gia Lance NP 08/12/2025 3:45 PM EDT Office Visit Orthopedic Surgery [facility] 175 [facility] 140 [place] [phone] Bessy Mesa MD Wrist pain (Primary Dx); Osteochondrosis of lunate of right wrist; Surgery follow-up 08/06/2025 Results Follow-Up Gastroenterology [facility] 175 [facility] 175 [facility] [address] [place] [phone] Gia Lance NP 08/05/2025 Telephone Orthopedic Surgery [facility] 250 175 [facility] [address] [place] [address] Von Mcclure MD 08/04/2025 Telephone Orthopedic Surgery [facility] 250 175 [facility] [address] [place] [phone] Bessy Mesa MD 07/29/2025 3:45 PM EDT Office Visit Orthopedic Surgery [facility] 175 [facility] [address] [place] [address] Bessy Mesa MD Osteochondrosis of lunate of right wrist (Primary Dx); Surgery follow-up 07/29/2025 Telephone Orthopedic Surgery [facility] 250 175 [facility] [address] [place] [address] Von Mcclure MD 07/28/2025 2:40 PM EDT Office Visit Gastroenterology [facility] [address] 175 [facility] [address] [place] [phone] Gia Lance NP Erosive gastropathy (Primary Dx); Abdominal pain, chronic, right upper quadrant; History of Helicobacter pylori infection; Esophageal dysmotility; Tobacco use disorder 07/24/2025 8:40 AM EDT Consult Endocrinology [address] [phone] Marian Turner MD Hypothyroidism (acquired) (Primary Dx); Hyperthyroidism 07/24/2025 Telephone Orthopedic Surgery [facility] 175 [facility] [address] [place] [phone] Bessy Mesa MD 07/23/2025 3:30 PM EDT Office Visit Orthopedic Surgery [facility] 175 [facility] [address] [place] [phone] Nichelle Archibald PA Surgery follow-up (Primary Dx) 07/23/2025 Telephone Orthopedic Surgery [facility] 250 175 [facility] [address] [place] [phone] Jacquelyn Sow 07/16/2025 1:10 PM EDT Anesthesia Event [facility] OR [address] [place] [phone] Magda Siegel MD Chang, Ling, CRNA 07/16/2025 12:30 PM EDT - 07/16/2025 2:00 PM EDT Surgery [facility] OR [address] [place] [phone] Bessy Mesa MD core decompression right distal radius [43525 (CPT )] 07/16/2025 10:33 AM EDT - 07/16/2025 4:05 PM EDT Hospital Encounter [facility] [place] [address] [place] [phone] Bessy Mesa MD 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 (CMS/HCC V24, CMS/HCC V28) Discharge Disposition: Home or Self Care 07/16/2025 7:20 AM EDT - 07/16/2025 11:59 PM EDT Hospital Encounter [facility] Xray [address] [place] [phone] Pain Discharge Disposition: Home or Self Care 07/16/2025 Telephone Gastroenterology [facility] 175 [facility] 175 [facility] [address] [place] [phone] Gia Lance NP 07/15/2025 Telephone Orthopedic Surgery [facility] [address] [phone] Bessy Mesa MD 07/08/2025 6:02 PM EDT - 07/08/2025 10:10 PM EDT Emergency [facility] Emergency [address] [place] [phone] Jalil Steven MD Goebel, Mathew, MD Spinal stenosis of lumbar region, unspecified whether neurogenic claudication present (Primary Dx) Discharge Disposition: Home or Self Care 07/08/2025 3:15 PM EDT Consult Orthopedic Surgery [facility] 175 [facility] [address] [place] [phone] Bessy Mesa MD Osteochondrosis of lunate of left wrist (Primary Dx) 06/26/2025 Telephone Orthopedic Surgery [facility] [address] [phone] Siria Palumbo 06/25/2025 8:30 AM EDT Ancillary Procedure [facility] [address] [facility] [address] [place] [address] Dyspnea on exertion 06/25/2025 Telephone Orthopedic Surgery [facility] [address] [phone] Bessy Mesa MD 06/20/2025 8:00 AM EDT Office Visit Orthopedic Surgery [facility] 175 [facility] [address] [place] [phone] Bessy Mesa MD Osteochondrosis of lunate of left wrist (Primary Dx) 06/20/2025 Telephone Orthopedic Surgery - [place] 250 175 [facility] [address] [place] [address] Bessy Mesa MD 06/19/2025 Telephone Gastroenterology [facility] [address] 175 [facility] [address] [place] [address] Gia Lance, NICOLE from Last 3 Months Immunizations Immunization Administration Dates Next Due Hepatitis B (Fnkmvma-H-Gujvo , Recombivax HB-Adult) 19yo and older 02/21/2022,01/17/2022 [...] tissue CARPAL TUNNEL RELEASE 01/20/2020 Right PROCEDURE: [place] NEUROPLASTY &/TRANSPOS MEDIAN NRV CARPAL TUNNE COLONOSCOPY OTHER SURGICAL HISTORY 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 [facility] WRIST SURGERY 11/06/2021 - 11/05/2022 Left [...] PM EST Office Visit Orthopedic Surgery - [place] 175 [facility] [address] [place] [phone] Bessy Mesa MD 175 [facility] 140 [place] [address] Health Maintenance Due Date Last [...] eventual strength) 09/11 Ongoing 2. Dominant R assurance assistant strength at least 35# (vs 20initial, [...] LMA(NO CHARGE) Routine 07/16/2025 1:23 PM EDT [place] OSTEOTOMY RADIUS DISTAL THIRD 07/16/2025 1:09 PM [...] detected Not detected 08/05/2025 2:52 PM EDT [facility] Comment: This test was performed at [facility] using a chemiluminescent immunoassay intended [...] Food and Drug Administration. Test performed at [facility], [address] , [place] [address] Krystina Austin MD, PhD - Hands Parter Stool Rectum structure / Unknown Non-blood Collection / Unknown 07/30/2025 9:58 AM EDT 07/30/2025 9:58 AM EDT Gia Lance NP LAB BODY FLUIDS AND STOOLS ROD ESCALANTE Final Result [facility] [address] [place] [address] * Thyroid stimulating hormone with reflex to free t4 and free t3 (07/24/2025 9:32 AM EDT) TSH 1.20 0.40 - 4.00 mcIU/mL LAB CHEMISTRY METHOD 07/24/2025 12:39 PM EDT [facility] Blood Venous blood specimen / Unknown Venipuncture / Unknown 07/24/2025 9:32 AM EDT 07/24/2025 9:32 AM EDT Marian Turner MD LAB BLOOD ORDERABLES Final Res ult Performing Organization Address City/[facility]/ZIP Co de Phone Number [facility] [address] [place] [address], * Thyroid stimulating immunoglobulin (07/24/2025 9:32 AM EDT) Thyroid Stimulating Immunoglobulin <0.10 <0.10 IU/L 07/28/2025 7:54 PM EDT [facility] Comment: Thyroid stimulating immunoglobulins (TSI) concentrations greater than or equal to (>=) 0.55 IU/L have a clinical sensitivity of at least 98.6%, and a clinical specificity of at least 98.5%, for the differential diagnosis of Graves' Disease. TSI concentrations for patients with other thyroid or autoimmune diseases range from 0.11 to 0.39 IU/L. Test performed at [facility], [address] [email or web address] [address] Krystina Austin MD, PhD - Hands Parter Blood Venous blood specimen / Unknown Venipuncture / Unknown 07/24/2025 9:32 AM EDT 07/24/2025 9:32 AM EDT us Marian Turner MD LAB BLOOD ORDERABLES Final Res ult Performing Organization Address [facility]/ZIP Co de Phone Number [facility] [address] [email or web address] [address] * Triiodothyronine free (07/24/2025 9:32 AM EDT) T3, Free 316 230 - 420 pcg/dL LAB CHEMISTRY METHOD 07/24/2025 12:38 PM EDT [facility] Blood Venous blood specimen / Unknown Venipuncture / Unknown 07/24/2025 9:32 AM EDT 07/24/2025 9:32 AM EDT us Marian Turner MD LAB BLOOD ORDERABLES Final Res ult [facility] [address] [place] [address], [place] [phone] * Thyroxine free (07/24/2025 9:32 AM EDT) Free T4 1.16 0.70 - 1.80 ng/dL LAB CHEMISTRY METHOD 07/24/2025 12:38 PM EDT [facility] Blood Venous blood specimen / Unknown Venipuncture / Unknown 07/24/2025 9:32 AM EDT 07/24/2025 9:32 AM EDT us Marian Turner MD LAB BLOOD ORDERABLES Final Res ult [facility] [address] [place] [address], [place] [phone] * Tissue exam (07/16/2025 1:50 PM EDT) Final Diagnosis Bone, Right, Distal Radius-decomp ression: -FRAGMENTS OF TRABECULAR BONE WITH NO SPECIFIC PATHOLOGIC CHANGE 07/18/2025 12:03 PM EDT [facility] Comment Intact specimen with articular cartilage is preferred specimen for evaluating avascular necrosis. 07/18/2025 12:03 PM EDT [facility] Gross Description A. Wrist, Right, Distal Radius: Labeled right dis wrist R . Received in formalin is a 1.4 x 0.8 x 0.2 cm aggregate of hard, rocha-red bone fragments which are wrapped in paper and submitted in toto in one cassette, multiple pieces, following decalcificati on. TS 07/18/2025 12:03 PM EDT [facility] Disclaimer Unless otherwise specified, all tissue is 10% NB formalin fixed and paraffin embedded. 07/18/2025 12:03 PM EDT [facility] Bone Structure of right wrist region / Unknown 07/16/2025 1:50 PM EDT 07/16/2025 3:19 PM EDT Bessy Mesa MD LAB PATHOLOGY ORDERABLES Nataliia vasquez Result [facility] [address] [place] [address], * (ABNORMAL) Culture anaerobic with gram stain (07/16/2025 1:40 PM EDT) Culture, Anaerobic No Growth of Anaerobes. 07/24/2025 8:51 AM EDT [facility] Culture, Anaerobic Staphylococcus warneri(A) ABBEY 07/24/2025 8:51 AM EDT [facility] Comment: SPARSE Beta-lactamase negative The organism value for this result has been updated. These results have been appended to the previously preliminary verified report. Edited result: Previously reported as Gram Positive Cocci on 07/20/2025 at 0832 EDT. Culture, Anaerobic Streptococcus viridans group(A) ABBEY 07/24/2025 8:51 AM EDT [facility] Comment: SPARSE Susceptibility testing [...] species,not anthracis(A) ABBEY 07/24/2025 8:51 AM EDT [facility] Comment: SPARSE The organism value for this result has been updated. These results have been appended to the previously preliminary verified report. Gram Stain Result Refer to Aerobic culture for gram stain results. 07/24/2025 8:51 AM EDT [facility] Swab Structure of right [...] OR DERABLES Final Result Performing Organization Address [facility]/RUST de Phone Number [facility] [address] [place] [address], [place] [phone] * Culture wound deep (07/16/2025 1:40 PM EDT) Culture, Wound No growth at 3 days 07/19/2025 10:14 AM EDT [facility] Gram Stain Result No polymorphonuclear leukocytes, No epithelial cells, and No organisms noted 07/19/2025 10:14 AM EDT [facility] Swab Structure of right wrist region / Unknown 07/16/2025 1:40 PM EDT 07/16/2025 2:37 PM EDT us Bessy Mesa MD LAB MICROBIOLOGY - GENERAL OR DERABLES Final Result Performing Organization Address [facility] Co de Phone Number [facility] [address] [place] [address], [place] [phone] * TH AN LMA(NO CHARGE) (07/16/2025 1:23 [...] spinal canal stenosis T12-L1 through L4-L5, and atjs-fq-zkiuomqm bilateral L4-L5 neural foraminal stenosis. 2. Unremarkable [...] spinal canal stenosis from T12-L1 through L4-L5. Lsro-lv-vjbjftvi bilateral L4-L5 neural foraminal stenosis. Unremarkable appearance [...] spinal canal stenosis from T12-L1 through L4-L5. Cjbv-ly-cfxrnbhv bilateral L4-L5 neural foraminal stenosis. Unremarkable appearance of the conus medullaris and cauda equina. Paraspinous musculature intact. IMPRESSION: 1. Multilevel degenerative changes of the lumbar spine as described contributing to mild multifocal spinal canal stenosis T12-L1 through L4-L5, and kqyi-on-bcctobof bilateral L4-L5 neural foraminal stenosis. 2. Unremarkable appearance of the conus medullaris and cauda equina. This document has been electronically signed by: James Sheth MD on 07/08/2025 21:13:43 Jalil Steven MD [facility] PROCEDURES Final Result * (ABNORMAL) CBC auto differential (07/08/2025 7:06 PM EDT) WBC 7.5 4.8 - 10.8 K/mcL LAB HEMETOLOGY METHOD 07/08/2025 7:22 PM EDT [facility] RBC 4.20 3.80 - 4.80 M/mcL LAB HEMETOLOGY METHOD 07/08/2025 7:22 PM EDT [facility] Hemoglobin 13.8 11.5 - 16.0 g/dL LAB HEMETOLOGY METHOD 07/08/2025 7:22 PM EDT [facility] Hematocrit 40.7 35.0 - 47.0 % LAB HEMETOLOGY METHOD 07/08/2025 7:22 PM EDT [facility] MCV 97.4 79.0 - 98.0 FL LAB HEMETOLOGY METHOD 07/08[facility]2025 [facility] MCH 33.0(H) 27.0 - 32.0 pcg LAB HEMETOLOGY METHOD 07/08/2025 7:[facility] MCHC 33.9 32.0 - 37.0 g/dL LAB HEMETOLOGY METHOD 07/08/2025 7:22 [facility] RDW 12.7 11.0 - 15.0 % LAB HEMETOLOGY METHOD 07/08/2025 7:22 PM [facility] Platelets 311 130 - 400 K/mcL LAB HEMETOLOGY METHOD 07/08/2025 7:22 PM [facility] MPV 9.3 7.0 - 11.0 FL LAB HEMETOLOGY METHOD 07/08/2025 7:22 [facility] NRBC 0.0 <1.0 % LAB HEMETOLOGY METHOD 07/08/2025 7:22 PM [facility] NRBC Absolute 0.00 <0.10 K/mcL LAB HEMETOLOGY METHOD 07/08/2025 7:22 PM [facility] Neutrophils Relative 49.3 % LAB HEMETOLOGY METHOD 07/08/2025 7:22 PM [facility] Lymphocytes Relative 39.4 % LAB HEMETOLOGY METHOD 07/08/2025 7:22 PM [facility] Monocytes Relative 7.6 % LAB HEMETOLOGY METHOD 07/08/2025 7:22 PM [facility] Eosinophils Relative 2.9 % LAB HEMETOLOGY METHOD 07/08/2025 7:22 PM [facility] Basophils Relative 0.5 % LAB HEMETOLOGY METHOD 07/08/2025 7:22 PM [facility] Immature Granulocytes Relative 0.3 % LAB HEMETOLOGY METHOD 07/08/2025 7:22 PM EDT [facility] Neutrophils Absolute 3.68 1.50 - 7.00 K/mcL LAB HEMETOLOGY METHOD 07/08/2025 7:22 PM EDT [facility] Lymphocytes Absolute 2.94 1.00 - 5.00 K/mcL LAB HEMETOLOGY METHOD 07/08/2025 7:22 PM EDT [facility] Monocytes Absolute 0.57 0.20 - 1.00 K/mcL LAB HEMETOLOGY METHOD 07/08/2025 7:22 PM EDT [facility] Eosinophils Absolute 0.22 0.00 - 0.50 K/mcL LAB HEMETOLOGY METHOD 07/08/2025 7:22 PM EDT [facility] Basophils Absolute 0.04 0.00 - 0.20 K/mcL LAB HEMETOLOGY METHOD 07/08/2025 7:22 PM EDT [facility] Immature Granulocytes Absolute 0.02 0.00 - 0.03 K/mcL LAB HEMETOLOGY METHOD 07/08/2025 7:22 PM EDT [facility] Blood Venous blood specimen / Unknown Venipuncture / Unknown 07/08/2025 7:06 PM EDT 07/08/2025 7:15 PM EDT us Juan F Doshi MD LAB BLOOD ORDERABLES Final Result [facility] [address] [place] [address], * Lipase (07/08/2025 7:06 PM EDT) Lipase 19 13 - 75 unit/L LAB CHEMISTRY METHOD 07/08/2025 7:54 PM EDT [facility] Blood Venous blood specimen / Unknown Venipuncture / Unknown 07/08/2025 7:06 PM EDT 07/08/2025 7:15 PM EDT Jaun F Doshi MD LAB BLOOD ORDERABLES Final Result [facility] [address] [place] [address], [place] [phone] * Comprehensive metabolic panel (07/08/2025 7:06 PM EDT) Sodium 140 133 - 145 mmol/L LAB CHEMISTRY METHOD 07/08/2025 7:54 PM T [facility] Potassium 4.1 3.5 - 5.5 mmol/L LAB CHEMISTRY METHOD 07/08/2025 7:54 PM [facility] Chloride 104 96 - 110 mmol/L LAB CHEMISTRY METHOD 07/08/2025 7:54 PM [facility] CO2 29 21 - 32 mmol/L LAB CHEMISTRY METHOD 07/08/2025 7:54 PM [facility] Anion Gap 7 3 - 11 LAB CHEMISTRY METHOD 07/08/2025 7:54 PM [facility] Glucose 81 70 - 100 mg/dL LAB CHEMISTRY METHOD 07/08/2025 7:54 PM [facility] BUN 8 5 - 25 mg/dL LAB CHEMISTRY METHOD 07/08/2025 7:54 PM [facility] Creatinine 0.81 0.50 - 1.10 mg/dL LAB CHEMISTRY METHOD 07/08/2025 7:54 PM [facility] eGFR 84 >=60 mL/min/1. 73m2 LAB CHEMISTRY METHOD 07/08/2025 7:54 PM [facility] Comment:Calculation based on the Chronic Kidney Disease Epidemiology Collaboration (CKD-EPI) equation refit without adjustment for race. BUN/Creatinine Ratio 9.9 LAB CHEMISTRY METHOD 07/08/2025 7:54 PM [facility] Calcium 9.8 8.5 - 10.5 mg/dL LAB CHEMISTRY METHOD 07/08/2025 7:54 PM EDT [facility] AST (SGOT) 23 10 - 42 unit/L LAB CHEMISTRY METHOD 07/08/2025 7:54 PM EDT [facility] ALT (SGPT) 29 10 - 60 unit/L LAB CHEMISTRY METHOD 07/08/2025 7:54 PM EDT [facility] Alkaline Phosphatase 102 42 - 121 unit/L LAB CHEMISTRY METHOD 07/08/2025 7:54 PM EDT [facility] Total Protein 6.8 6.0 - 8.0 g/dL LAB CHEMISTRY METHOD 07/08/2025 7:54 PM EDT [facility] Albumin 4.0 3.2 - 5.0 g/dL LAB CHEMISTRY METHOD 07/08/2025 7:54 PM EDT [facility] Total Bilirubin 0.5 0.0 - 1.4 mg/dL LAB CHEMISTRY METHOD 07/08/2025 7:54 PM EDT [facility] Blood Venous blood specimen / Unknown Venipuncture / Unknown 07/08/2025 7:06 PM EDT 07/08/2025 7:15 PM EDT us Juan F Doshi MD LAB BLOOD ORDERABLES Final Result [facility] [address] [place] [address], [place] [phone] * (ABNORMAL) TRANSTHORACIC ECHOCARDIOGRAM (TTE) COMPLETE (06/25/2025 9:10 AM EDT) Left [facility] [place] 4.9 cm CV PACS Left At[facility] [place] 4.9 cm CV PACS LA Area Sys [...] Volume 57 mL CV PACS MV Deceleration [place] 4.1 m/s2 CV PACS E Wave Deceleration [...] PROCEDURES Final Result * COLONOSCOPY Anest[facility] - [facility] ENDOSCOPY (06/05/2025 12:23 PM EDT) Anatomical [...] previously scheduled. Narrative 06/05/2025 12:27 PM EDT [facility] Patient Name: María Phillips Procedure [...] verified by the physician, the nurse, the data reviewer and the aircraft avionics technician in the pre-procedure area in the [...] not prolapse). Procedure Code(s): --- Professional --- 38940, Colonoscopy, flexible; with biopsy, single or multiple Diagnosis Code(s): --- Professional --- R19.7, Diarrhea, unspecified CPT copyright 2020 [employer]. All rights reserved. The codes documented in this report are preliminary and upon ceramic sprayer review may be revised to meet current compliance requirements. Melba Bunn MD 06/05/2025 12:27:19 PM This report has been signed electronically.Melba Bunn MD Number of Addenda: 0 Note Initiated On: 06/05/2025 11:57 AM Scope Withdrawal Time: 0 hours 6 minutes 22 seconds Scope In: 12:10:33 PM Scope Out: 12:23:27 PM Endoscopy Department at [facility] - [address] [place] [phone] Procedure Note Melba Bunn MD - 06/05/2025 [facility] Patient Name: María Phillips Procedure [...] the physician, the nurse, theanesthetist and the aircraft avionics technician in the pre-procedure area in the [...] not prolapse). Procedure Code(s): --- Professional --- 96209, Colonoscopy, flexible; with biopsy, singleor multiple Diagnosis Code(s): --- Professional --- R19.7, Diarrhea, unspecified CPT copyright 2020 [employer]. All rights reserved. The codes documented in this report are preliminary and upon ceramic sprayer reviewmay be revised to meet current compliance requirements. Melba Bunn MD 06/05/2025 12:27:19 PM This report has been signed electronically.Melba Bunn MD Number of Addenda: 0 Note Initiated On: 06/05/2025 11:57 AM Scope Withdrawal Time: 0 hours 6 minutes 22 seconds Scope In: 12:10:33 PM Scope Out: 12:23:27 PM Endoscopy Department at [facility] - [address] [place] [phone] IMPRESSION: - The examined portion of the [...] year. Mammo Location: [facility], [address] [place] [address], [id number], . -------- FINAL REPORT -------- Dictated By: Stefani Zamora Dictated Date: 02/06/2025 09:43 ET Assigned Physician: Stefani Zamora Reviewed and Electronically Signed By: Stefani Zamora Signed Date: 02/06/2025 09:45 ET Workstation ID: [id number] Transcribed By: Self Edit Transcribed Date: 02/06/2025 [...] year. Mammo Location: [facility], [address] [place] [address], [id number], . -------- FINAL REPORT -------- Dictated By: Stefani Zamora Dictated Date: 02/06/2025 09:43 ET Assigned Physician: Stefani Zamora Reviewed and Electronically Signed By: Stefani Zamora Signed Date: 02/06/2025 09:45 ET Workstation ID: [id number] Transcribed By: Self Edit Transcribed Date: 02/06/2025 09:43 ET us Araceli BOOTHE IMG BI PROCEDURES Final Result * Lipid panel with reflex to direct LDL (10/28/2024 2:36 PM EST) Cholesterol 196 0 - 200 mg/dL LAB CHEMISTRY METHOD 10/28/2024 4:17 PM EST [facility] Triglycerides 51 0 - 150 mg/dL LAB CHEMISTRY METHOD 10/28/2024 4:17 PM EST [facility] HDL 111 >=40 mg/dL LAB CHEMISTRY METHOD 10/28/2024 4:17 PM EST [facility] LDL Calculated 75 0 - 100 mg/dL LAB CHEMISTRY METHOD 10/28/2024 4:17 PM EST [facility] VLDL Cholesterol Corby 10.2 mg/dL LAB CHEMISTRY METHOD 10/28/2024 4:17 PM EST [facility] Non HDL Chol. (LDL+VLDL) 85 <145 mg/dL LAB CHEMISTRY METHOD 10/28/2024 4:17 PM EST [facility] Chol/HDL Ratio 1.8 0.0 - 4.4 LAB CHEMISTRY METHOD 10/28/2024 4:17 PM [facility] Blood Venous blood specimen / Unknown Venipuncture / Unknown 10/28/2024 2:36 PM EST 10/28/2024 3:06 PM EST us Araceli BOOTHE LAB BLOOD ORDERABLES Fin al Result [facility] [address] [place] [address], * HIV Screening (05/20/2024) HIV Screening abstracted Historical Provider HEALTH MAINTENANCE Final Result * Hepatitis C Screening (05/20/2024) Hepatitis C Screening abstracted Historical Provider HEALTH MAINTENANCE Final Result * Cervical Cancer Screening: HPV (07/20/2023) Pathologist [facility] Cervical Cancer Screening: HPV no interpreta tion,abstr acted Historical Provider HEALTH MAINTENANCE Final Result from Last 3 Months or Most Recently Relevant to Health Maintenance Insurance [facility] Advance Directives * Full Code - [...] currently active code status orders. Care Teams Rn Flight Relationship Specialty Start Date End Date Araceli Augustin PA [address] [place] [phone] PCP - General 11/20/24
== END 2025-09-16 16:11 | disposition home or self-care (01) ==
LOC: HO.PMCPRC 15:05
PROVIDERS: Visit Provider Anesthesiology
DX: M53.3 Sacrococcygeal disorders, not elsewhere classified (principal)
CPT/HCPCS: 27096

== ENCOUNTER 2025-09-19 09:43 | Outpatient (AMB) | payer OTHER, SELFPAY ==
--- OUTSIDE RECORDS SUMMARY | 2024-08-06 07:23 | XMS_ITS | Encounter Summary ---
Author Organization [facility] Address [address] [place] [address] Care Team Providers Care Short Piece Handler Name Role Phone Unavailable Primary Care Provider Unavailabl e Encounter Details Date Type Department Care Team (Late st Contact Info) Description 08/06/2024 8:23 AM EDT Hospital Encounter TH HISTORIC ENCOUNTERS EASTERN CONVERSION ONLY Tutu Trivedi MD [address] [place] [address] Social History Tobacco Use Types Packs/Day Years [...] 4:01 PM EDT Karin Vera RN * [place] Suicide Severity Rating Scale (Screener/Recent Self-Report) Question [...] PM EST Office Visit Orthopedic Surgery - [place] [address] [address] Bessy Mesa MD [address] [address] documented as of this encounter Goals Goal Patient Goal Type Associated Problems Recent Progress Patient-Stated? Author OT 6-8 visits General No change(2024 4:47 PM EST) No Nichelle Milian OT Note: 1> Indep HEP (splint weaning, ROM, pain manage, eventual strength) 09/11 Ongoing 2. Dominant R receiving operator strength at least 35# (vs 20initial, vs [...]
--- OUTSIDE RECORDS SUMMARY | 2024-11-04 08:00 | XMS_ITS ---
Author Organization [facility] Address [address] [place] [phone] Care Team Providers Care Brick Offbearer Name Role Phone IKER ROBLERO PA-C Primary Care Provider Latonya Ramirez Unavailable [phone] Allergies Allergen (clinical drug ingredient) Drug/Non Drug Allergy documented on EMR Reaction Allergy Type Onset Date Status erythromycin ERYTHROMYCIN Skin Rash Drug Allergy A ctive REASON FOR VISIT PAP AFTER PREMARIN USE Encounters Encounter Location Date Provider Diagnosis [address] [address] 11/04/2024 Latonya Lozano Plan Of Treatment No Information Progress Notes * DAWSON OLSONMOONOB:1965 (60 yo F)Acc No.[id number]:11/04/2024 PROGRESS NOTES Patient: MARCUS RODRIGUEZ Appointment Provider: Shannon Lozano M.D. :1965 A ge:59 Y S ex:Female Date:11/04/2024 Address:[address] [place], [place] [phone] Pcp:IKER ROBLERO PA-C Subjective: * Chief Complaints: [...] on cytologic smear of cervix (ASC-US). * Shoveler History: G ravida/ Para 2 /2. S exual activity n ot currently sexually active. L ast Pap Smear: ASCUS, POS HRHPV (Neg 16, 18/45), 03/28/22 LGSIL, POS HRHPV (neg 16, 18/45), 11/21/17 NEG HRHPV, 2011. M ammogram: < 50% density, 02/27/19 < 50% density, 07/26/2017 normal, 07/2016 with follow up Lt Diagnostic 07/09/2016 Bx recommended. A bnormal Pap Smear: [place] Negative, 06/06/22 [place] Negative, 03/2022 LGSIL, + HRHPV. L MP [...] Electronic signature of Pato Lozano MD on 09/19/2025 at 10:55 AM EST Sign off status: Pending * Appointment Provider: Shannon Lozano M.D. Date: Generated for Renay bear/Hilton/Nelsonsmitting on: 11/19/2024 10:55 AM EST
--- OUTSIDE RECORDS SUMMARY | 2024-12-05 05:40 | XMS_ITS ---
Author Organization [facility] Address [address] [place] [phone] Care Team Providers Care Grain Unloader Machine Name Role Phone IKER ROBLERO PA-C Primary Care Provider Latonya Ramirez Unavailable [phone] Allergies Allergen (clinical drug ingredient) Drug/Non Drug Allergy documented on EMR Reaction Allergy Type Onset Date Status erythromycin ERYTHROMYCIN Skin Rash Drug Allergy A ctive REASON FOR VISIT TALK HRT Social History Tobacco Use: Social History Observation Description Date Details (start date - stop date) Current Smoker NA - NA AUDIT-C (Standard) Question Answer Notes Did you have a drink contain ing alcohol in the past year? Yes How often did you have six o r more drinks on one occasion in the past year? Never (0 point) How many drinks did you have on a typical day when you were drinking in the past year? 1 or 2 drinks (0 point) How often did you have a dri nk containing alcohol in the past year? 2 to 4 times a month (2 points) Points 2 Interpretation Negative Tobacco Control (Standard) Question Answer Notes Tobacco use: Current smoker How often do you smoke cigarettes? Every day How many cigarettes a day do you smoke? 6-10 Encounters Encounter Location Date Provider Diagnosis [address] [address] 12/05/2024 Latonya Lozano Plan Of Treatment No Information Progress Notes * MIS OLSONOB:1965 (60 yo F)Acc No.[id number]:12/05/2024 PROGRESS NOTES Patient: MARCUS RODRIGUEZ Appointment Provider: Shannon Lozano M.D. :1965 A ge:59 Y S ex:Female Date:12/05/2024 Address:[address] [place] [address] Pcp:IKER ROBLERO PA-C Subjective: * Chief Complaints: * 1 . TALK HRT. * Medical History: A nxiety disorder, unspecified, [...] on cytologic smear of cervix (ASC-US). * Physician Ophthalmologist History: G ravida/ Para 2 /2. S exual activity n ot currently sexually active. L ast Pap Smear: ASCUS, POS HRHPV (Neg 16, 18/45), 03/28/22 LGSIL, POS HRHPV (neg 16, 18/45), 11/21/17 NEG HRHPV, 2011. M ammogram: < 50% density, 02/27/19 < 50% density, 07/26/2017 normal, 07/2016 with follow up Lt Diagnostic 07/09/2016 Bx recommended. A bnormal Pap Smear: [place] Negative, 06/06/22 [place] Negative, 03/2022 LGSIL, + HRHPV. L MP and menses M mark 01/2017. B irth Control: N one. C olonoscopy 1 1997. B one Density: . * OB History: T otal pregnancies 2 . T otal living children 2 . N VD 2 . * Social History: T obacco Use: T obacco Control (Standard) T obacco use: C urrent smoker H ow often do you smoke cigarettes? E very day H ow many cigarettes a day do you smoke? 6 -10 S exual History: S exual History H ad sex in the past 12 months (vaginal, oral, or anal)?: No. Details of Sexual History A re you sexually active? N o D rugs/Alcohol: D rugs H ave you used drugs other than those for medical reasons in the past 12 months? N o M iscellaneous: Felton fitzgeralden: yes, 2. Domestic violence: no. Home smoke detector use: yes. Living with: spouse. Marital status: . Natural support system: yes. Occupation: Works full-time. Sexual abuse: no. Sexually active: no, monogamous relationship. Verbal abuse: no. D rug/Alcohol: A YOLI-C (Standard) D id you have a drink containing alcohol in the past year? Y es H ow often did you have six or more drinks on one occasion in the past year? N ever (0 point) H ow many drinks did you have on a typical day when you were drinking in the past year? 1 or 2 drinks (0 point) H ow often did you have a drink containing alcohol in the past year? 2 to 4 times a month (2 points) P oints 2 I nterpretation N egative * Allergies: E RYTHROMYCIN: Skin Rash - Allergy. Objective: * Vitals: Assessment: Plan: * Treatment: * Images: Billing Information: * Visit Code: * Procedure Codes: * Electronic signature of Pato Lozano MD on 09/19/2025 at 10:54 AM EST Sign off status: Pending * Appointment Provider: Shannon Lozano M.D. Date: 0 12/05/2024 Generated for Renay bear/Hilton/Shaquille on: 11/19/2024 10:54 AM EST
--- OUTSIDE RECORDS SUMMARY | 2025-02-14 06:00 | XMS_ITS ---
Author Organization [facility] Address [address] [place] [address] Care Team Providers Care Vision Specialist Name Role Phone IKER ROBLERO PA-C Primary Care Provider Unav Latonya Panda Unavailable [phone] REASON FOR VISIT ULTRA - CK OVARIES ? DERMOID ON RT ADNEXA ON X RAY Encounters Encounter Location Date Provider Diagnosis [facility] [address] 02/14/2025 Latonya Lozano Plan Of Treatment No Information Progress Notes * DAWSON OLSONMOONOB:1965 (60 yo F)Acc No.[id number]:02/14/2025 PROGRESS NOTES Patient: MARCUS RODRIGUEZ Appointment Provider: Shannon Lozano M.D. :1965 A ge:59 Y S ex:Female Date:02/14/2025 Address:[address] [place], [place] [address] Pcp:IKER ROBLERO PA-C Subjective: * Chief Complaints: * 1 . ULTRA - CK OVARIES ? DERMOID ON RT ADNEXA ON X RAY. * Medical History: Objective: * Vitals: Assessment: Plan: * Treatment: * Images: Billing Information: * Visit Code: * Procedure Codes: * Electronic signature of Pato Lozano MD on 09/19/2025 at 10:55 AM EST Sign off status: Pending * Appointment Provider: Shannon Lozano M.D. Date: 0 02/14/2025 Generated for Renay bear/Hilton/eTransmitting on: 1 11/19/2024 10:55 AM EST
--- OUTSIDE RECORDS SUMMARY | 2025-03-03 08:10 | XMS_ITS ---
Author Organization [facility] Address [address] [place] [address] Care Team Providers Care Director Immunology Name Role Phone IKER ROBLERO PA-C Primary Care Provider Latonya Ramirez Unavailable [phone] Allergies Allergen (clinical drug ingredient) Drug/Non Drug [...] Active Encounters Encounter Location Date Provider Diagnosis [address] [address] 03/03/2025 Latonya Lozano Plan Of Treatment No Information Progress Notes * MIS OLSONOB:1965 (60 yo F)Acc No.[id number]:03/03/2025 Patient: Bhavna DIORMARCUS Appointment Provider: Shannon Lozano M.D. :1965 A ge:59 Y S ex:Female Date:03/03/2025 Address:[address] [place] [address] Pcp:IKER ROBLERO PA-C Subjective: * Chief Complaints: [...] on cytologic smear of cervix (ASC-US). * Felling Bucking Supervisor History: G ravida/ Para 2 /2. S exual activity n ot currently sexually active. L ast Pap Smear: ASCUS, POS HRHPV (Neg 16, 18/45), 03/28/22 LGSIL, POS HRHPV (neg 16, 18/45), 11/21/17 NEG HRHPV, 2011. M ammogram: < 50% density, 02/27/19 < 50% density, 07/26/2017 normal, 07/2016 with follow up Lt Diagnostic 07/09/2016 Bx recommended. A bnormal Pap Smear: [place] Negative, 06/06/22 [place] Negative, 03/2022 LGSIL, + HRHPV. L MP [...] 03/03/2025 Generated for Renay bear/Hilton/Sh[place]ille on: 1 11/19/2024 10:55 AM EST
--- OUTSIDE RECORDS SUMMARY | 2025-03-06 05:00 | XMS_ITS ---
Author Organization [facility] Address [address] [facility] [address] [facility] [address] [place] [address] Care Team Providers Care Medical Transcription Name Role Phone IKER ROBLERO PA-C Primary Care Provider Latonya Ramirez Unavailable [phone] Allergies Allergen (clinical drug ingredient) Drug/Non Drug [...] Gabapentin 100 MG TAKE 1 CAPSULE BY [facility] 3 TIMES A DAY Oral; Duration: [...] 6-10 Encounters Encounter Location Date Provider Diagnosis [address] [place] [address] 03/06/2025 Latonya Lozano Plan Of Treatment No Information Progress Notes * DAWSON OLSONENDOB:1965 (60 yo F)Acc No.[id number]:03/06/2025 Patient: MARCUS RODRIGUEZ Appointment Provider: Shannon Lozano M.D. :1965 A ge:59 Y S ex:Female Date:03/06/2025 Address:[address] [place], [place] [phone] Pcp:IKER ROBLERO PA-C Subjective: * Chief Complaints: [...] on cytologic smear of cervix (ASC-US). 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 [...] 07/09/2016 Bx recommended. A bnormal Pap Smear: [place] Negative, 06/06/22 [place] Negative, 03/2022 LGSIL, + HRHPV. L MP [...] 03/06/2025 Generated for Renay bear/Hilton/Lambertoitting on: 1 11/19/2024 10:54 AM EST
--- OUTSIDE RECORDS SUMMARY | 2025-09-15 15:45 | XMS_ITS | Encounter Summary ---
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 She had contacted us through TalkTo. She had worsening wrist pain enough where she could not go to work. Things were seemingly getting worse. We had her come in today so we could not double check things and get an updated x-ray. SUBJECTIVE: Patient reports ongoing pain even at rest in the right wrist. That has been present now for some time. She describes burning pain along the volar wrist as well as some pain over the dorsum of the wrist onto the hand itself. She does use a brace but continues to have discomfort. We have tried a castbefore but she did not tolerate this. She does express a lot of frustration and just not feeling well as she has problems in several other joints including her ribs or SI joint and her left knee. Sheis also having some gut or stomach problems. Patient does have an appointment later in the month for an MRI at [facility]. This was ordered by her chemical unit operator. Patient was just started on HRT therapy last week. It does seem to be impacting her night sweats. Patient has had a gallbladder surgery in the past along with carpal tunnel surgery. OBJECTIVE: Visit Vitals OB Status Postmenopausal Smoking Status Some Days On exam the patient does not have any visible redness erythema or discoloration around the right wrist. There is no significant swelling. She is able to flex and extend abduct and adduct the fingers and circumduct the thumb. Grossly she has intact sensation to light touch on the digits and the thumb. She is able to extend the wrist back to 38 degrees and flex it to 30. She can pronate and supinate. No swelling of the forearm. No tenderness about the elbow. XR Wrist 3+ Views Right AP, lateral, oblique of the right wrist was obtained on 09/15/2025. There are prior images from July and August available for comparison. There is also 1 from May of this year. There is some generalized osteopenia throughout the hand and carpus. There is periarticular osteopenia. She does a notably flattened and sclerotic lunate. This is consistent with avascular necrosis. the scaphoid on the AP does appear rotated. There is some narrowing at the basal joint along with some subchondral cysts as well. This has been present on prior imaging as well. The scaphoid appears flexed both on the AP and lateral views. There are no obvious fractures or specific lytic lesions. Impression: Avascular necrosis with flattening and sclerosis of the lunate ASSESSMENT: 1. 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 I suspect that if she is feeling any clicking is probably the lunate fragmenting. She and I had spoken on the phone previously and we have talked about maybe another steroid injection but I am not sure that that is really going to help overall. It may just muddy things up. I do think she should get her MRI sooner rather than later. I can try to send word over to Dr. Castellanos, the ordering physician, and see if they can move it up over at [facility]. If they cannot maybe we can get it scheduled here at [facility]. I did offer the patient a another round of casting but she declined. I did inquire as to whether the patient has mental health treatment access. She does see a therapist. Having many multiple health issues can be very trying for patient so it is good that she is has therapy services. Work is going to continue to be challenging. I did advise that she talk with her union further. We will give her an updated treatment note for her workplace however I believe she may have already used up all her FLMA. We will talk again after the MRI. Work note provided. Patient is aware of the need for evaluation. I did advise her to speak with her PCP regarding her stomach complaints. There may be that she needs a different course of treatment. Bessy Mesa MD has a past medical history of Abdominal pain, Anxiety, Carpal tunnel syndrome (01/23/2020), Change in bowel habits, Decreased appetite, Depressive disorder, Epigastric pain, GERD (gastroesophageal reflux disease), Globus sensation, Rock's disease, History of actinic keratoses (03/19/2019), Joint pain, Post-traumatic osteoarthritis of left knee (10/03/2023), Rheumatoid arthritis ([facility] V24,[facility] V28) (12/25/2020), Throat pain, and Thyroid nodule (07/05/2021). She has no past medical history of Bronchitis, Cerebrovascular disease, Chronic ischemic heart disease, Diabetes mellitus type 2, controlled, with complications (CMS/HCC V24, CMS/HCC V28), Esophagealreflux, Essential hypertension, Malignant neoplasm of colon (CMS/HCC V24, CMS/HCC V28), Malignant neoplasm of female breast (CMS/HCC V24, CMS/HCC V28), or Neoplasm of uncertain behavior of prostate. has a past surgical history that includes Eye surgery (1973); orthopedic surgery (1995); Other surgical history (12/2017); Hernia repair (07/28/2018); Breast biopsy (Left, 2016); Breast surgery (Left, 2016); Carpal tunnel release (Right, 01/20/2020); Colonoscopy; Other surgical history (12/18/2024); Wrist surgery (Left, 2021); Ventral hernia repair (03/25/2025); Cholecystectomy; and Hand surgery (Right, 07/16/2025). Home Medications ascorbic acid (VITAMIN C) 250 mg tablet Take 1 tablet (250 mg total) by mouth 1 (one) time each day. buPROPion XL (WELLBUTRIN XL) 150 mg 24 hr tablet Take 1 tablet (150 mg total) by mouth 1 (one) timeeach day. Do not crush, chew, or split. cetirizine (ZyrTEC) 10 mg tablet Take 1 tablet (10 mg total) by mouth 1 (one) time each day. cholecalciferol (VITAMIN D-3) 25 mcg (1,000 unit) tablet Take 1 tablet (1,000 Units total) by mouth1 (one) time each day. diazePAM (VALIUM) 5 mg tablet Take 1 tablet (5 mg total) by mouth 2 (two) times a day if needed. docusate sodium (COLACE) 100 mg capsule if needed. esomeprazole (NexIUM) [address] capsule Take 1 capsule (40 mg total) by mouth 1 (one) time each day before breakfast. Do not open capsule. lactulose (CHRONULAC) solution Take 15 mL (10 g total) by mouth 2 (two) times a day. reports that she has been smoking cigarettes. She started smoking about 48 years ago. She has a 24.4 pack-year smoking history. She has never used smokeless tobacco. She reports current alcohol use of about 21.0 standard drinks of alcohol per week. She reports that she does not use drugs. documented in this encounter Plan of Treatment Upcoming Encounters Date Type Department Care Team (Late st Contact Info) Description 09/23/2025 3:45 PM EST Office Visit Orthopedic Surgery - [place] 175 [facility] [address] [place] [phone] Bessy Mesa MD 175 [facility] [address] [place] [phone] documented as of this encounter Goals Goal Patient Goal Type Associated Problems Recent Progress Patient-Stated? Author OT 6-8 visits General No change(2024 4:47 PM EST) No Nichelle Milian OT Note: 1> Indep HEP (splint weaning, ROM, pain manage, eventual strength) 09/11 Ongoing 2. Dominant R spout positioner strength at least 35# (vs 20initial, vs [...] level 8/10 documented as of this encounter Results * XR Wrist 3+ Views Right (09/15/2025 3:58 PM EST) Anatomical Region Laterality Modality Upper Extremities, Wrist Right Compute d Radiography Narrative 09/15/2025 4:48 PM EST AP, lateral, oblique of the right wrist was obtained on 09/15/2025. There are prior images from July and August available for comparison. There is also 1 from May of this year. There is some generalized osteopenia throughout the hand and carpus. There is periarticular osteopenia. She does a notably flattened and sclerotic lunate. This is consistent with avascular necrosis. the scaphoid on the AP does appear rotated. There is some narrowing at the basal joint along with some subchondral cysts as well. This has been present on prior imaging as well. The scaphoid appears flexed both on the AP and lateral views. There are no obvious fractures or specific lytic lesions. 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 Do not open capsule. Therapy completed 07/28/2025 09/15/2025 documented as of this encounter Care Teams Linter Drier Operator Relationship Specialty Start Date End Date Araceli Augustin PA [address] [place] [phone] PCP - General 11/20/24 documented as of this encounter
--- NOTE | 2025-09-19 09:46 | A.OFFVIS_ITS ---
Vital Signs 09/19/25 09:47 Height 5 ft 4 in Weight 162 lb BMI 27.8 BP 145/82 H Blood Pressure Location Rt brachial Position Sitting Respiration 16 Pulse 88 Pulse Source Pulse Oximeter Pulse Oximetry (%) 97 Oxygen Delivery Method Room Air Intake Visit Reasons: S/P Bilateral diagnostic SIJ injections Roll Operator Required: No Accompanied by: Self / Same As Patient Allergies erythromycin base Allergy (Verified 09/19/25 10:36) Hives etanercept (From Enbrel) Adverse Reaction (Intermediate, Verified 09/19/25 10 :36) diverticulitis leflunomide Adverse Reaction (Intermediate, Verified 09/19/25 10:36) diverticulitis prednisone Adverse Reaction (Intermediate, Verified 09/19/25 10:36) Body pain gabapentin Adverse Reaction (Mild, Verified 09/19/25 10:36) tremors HPI Comments Details: The patient is a 60-year-old female presenting with chronic pain and associated symptoms. 3 days S/P Bilateral diagnostic SIJ injections. Denies improvement in pain after the injections, states if anything the pain worsened. 2 days ago she was evaluated by thoracic surgeon and had what sounds like intercostal nerve block on the left. States since then she has not felt well. Suffering with abd pain, nausea, anorexia, shaking, tingling to left side of her head. The patient reports experiencing chronic pain for the past three years, which has been progressively worsening. She describes the pain as severe, affecting her ability to function normally, and it has led to significant distress. The patient has been experiencing high blood pressure, which she attributes to her ongoing pain and stress. She is currently on hormone replacement therapy, which she started last week, but her site operations manager indicated it should not cause her current symptoms. She reports significant psychological distress, including depression and anxiety, exacerbated by her chronic pain and lack of support from her family. The patient has a therapist and was prescribed trazodone for sleep, but she has not taken it for several days. Reports thoughts of hurting herself but denies plan. Denies HI/SH. Having very dark thoughts stating someone needs to help me right now . - Onset: Chronic pain for three years, progressively worsening - Quality: Severe, affecting normal function - Location: Right chest wall, sacroiliac joint, hip, groin, lower back - Exacerbating factors: Nerve block procedures - Interference: Significant distress and functional impairment - Affect: Significant psychological distress, including depression and anxiety - Analgesia: No specific pain medications mentioned, current pain levels are severe - Adverse Effects: None reported from pain medications - Activities of Daily Living: Pain significantly affects daily functioning and quality of life - Aberrant Drug Related Behaviors: None reported Prior: The patient is a 60-year-old female presenting with chronic pain management, particularly focusing on sacroiliac joint dysfunction. The pain began in the groin area approximately two years ago, described as shooting pain, and subsequently spread to the buttocks, causing significant discomfort while sitting. An MRI revealed a cyst, and the patient was diagnosed with sacroiliac joint dysfunction by a brand advocate. The patient has received several injections in the lower back, with inconsistent results, and was discharged from physical therapy due to lack of improvement. The patient also has rheumatoid arthritis, with a notably high RA count, and osteoarthritis affecting the knees. She has experienced dermatographia and had a resolved H. pylori infection. Endorses pain over bilateral PSIS, tender to palpation, worse with stretching, sitting, standing, stairs, lying on affected side. - Onset: Pain began approximately two years ago. - Quality: Described as shooting pain initially in the groin, spreading to the buttocks. - Location: Primarily in the groin and buttocks, with some involvement of the lower back and knees. - Radiation: Pain radiates from the buttocks to the thighs and groin. - Exacerbating factors: Movement and certain physical manipulations increase pain. - Relieving factors: Previous injections provided temporary relief. - Interference: Pain affects sitting and daily activities. - Affect: Pain impacts daily activities and psychological well-being. - Analgesia: Previous injections provided inconsistent relief; current pain management strategies are under review. - Adverse Effects: Concerns about steroid use leading to necrosis of carpal bone. - Activities of Daily Living: Pain interferes with sitting and other daily functions. - Aberrant Drug Related Behaviors: No evidence of medication misuse or abuse reported. [facility] Medical History Dermatographia Helicobacter pylori (H. 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 Sacroiliac joint pain Tendonitis of ankle, right Surgical History H/O decompression of ulnar nerve History of surgery Social History Household Members: Spouse and Family Housing: House Alcohol intake: current Alcohol intake frequency: a few times a month Patient Tobacco Use Status: Current everyday Tobacco user Tobacco use type: Cigarette Cigarettes Per Day: 10 Years Smoked: 15 years e-Cigarette/Vaping Use: Never Used service: No Current occupational status: employed 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 Anxious. Tearful. Skin: warm, dry, intact HEENT: Normocephalic. Hearing intact. Cardiac: External chest normal in appearance. Respiratory: No cough, audible wheezing or stridor. Abdomen: without gross distension. MS: No obvious swelling or deformities. Neurological: Oriented to person, place, time and situation. Psychiatric: Anxious. Vital Signs: Last Vital Signs Pulse 88 09/19/25 09:47 Resp 16 09/19/25 09:47 BP 145/82 H 09/19/25 09:47 Pulse Ox 97 09/19/25 09:47 Oxygen Delivery Method Room Air 09/19/25 09:47 BMI result Body Mass Index 27.8 Assessment & Plan Assessment & Plan (1) Sacroiliac joint dysfunction of both sides: Code(s): M53.3 - Sacrococcygeal disorders, not elsewhere classified Category: Medical (2) Lumbar facet arthropathy: Code(s): M47.816 - Spondylosis without myelopathy or radiculopathy, lumbar region Category: Medical (3) Bilateral knee pain: Code(s): M25.561 - Pain in right knee; M25.562 - Pain in left knee Category: Medical (4) Depression: Code(s): F32.A - Depression, unspecified Category: Medical (5) Suicidal risk: Code(s): R45.89 - Other symptoms and signs involving emotional state Category: Medical Plan The patient is advised to seek immediate evaluation at the emergency room due to the severity of her symptoms and psychological distress. Consideration for mental health support is recommended, given her reported depression, anxiety and thoughts of hurting herself. The patient should follow up with her primary care provider to address her high blood pressure and discuss the impact of hormone replacement therapy on her symptoms. Further diagnostic workup may be required to evaluate her gastrointestinal symptoms and ensure comprehensive care. Patient was assisted to the ER via wheelchair; expect called to [facility]. Patient was informed and verbally consented to the use of an ambient scribe for clinic note documentation during this visit. Patient Instructions: - Go to the emergency room immediately for evaluation of symptoms and psychological distress. - Follow up with your primary care provider to discuss high blood pressure and hormone therapy. - Seek mental health support to address depression and anxiety. Coding Level of Care Code Est Pt Level 4 (93304) Complex EM visit Add On G2211 Diagnoses Sacroiliac joint dysfunction of both sides M53.3 Lumbar facet arthropathy M47.816 Bilateral knee pain M25.561; M25.562 Depression F32.A Suicidal risk R45.89
[2025-09-19 09:47] VITALS: BP 145/82; PULSE 88; RESP 16; O2SAT 97; BMI 27.8
--- OUTSIDE RECORDS SUMMARY | 2025-09-19 10:53 | XMS_ITS | Clinical Summary ---
Author Organization [facility] Address [address] [place] [phone] Phone Care Team Providers Care Disk Operator Name Role Phone Vee Allan MD Primary [...] Medical Devices Not on file Care Teams Disk Operator Relationship Specialty Start Date End Date Vee Allan MD [address] [place] [phone] PCP - General Internal Medicine 09/01/20 Additional Source Comments The information contained in this document represents components of the legal health record. It is not the complete legal health record.[facility]
--- OUTSIDE RECORDS SUMMARY | 2025-09-19 10:54 | XMS_ITS | Encounter Summary ---
Author Organization [facility] Address [address] [place] [address] [place] [phone] Phone Care Team Providers Care Building Components Designer Name Role Phone Vee Allan MD Primary Care Pr ovider Encounter Details Date Type Department Care Team (Late st Contact Info) Description 10/08/2020 Ancillary Orders [facility] - Orthopaedics Outpatient Practice [address] [facility], 1st Floor, [address] [place] [address] Finn Bone MD [address] [place] [phone] [email or web address] Hand joint pain Social History [...] hand documented in this encounter Care Teams Building Components Designer Relationship Specialty Start Date End Date Vee Allan MD [address] [place] [phone] PCP - General Internal Medicine 09/01/20 documented as of this encounter Additional Source Comments The information contained in this document represents components of the legal health record. It is not the complete legal health record.[facility]
--- OUTSIDE RECORDS SUMMARY | 2025-09-19 10:54 | XMS_ITS | Encounter Summary ---
Author Organization [facility] Address [address] [place] [address] Care Team Providers Care Chemistry Technologist Name Role Phone Araceli Augustin Primary Care Provider + Encounter Details Date Type Department Care Team ([facility] st Contact Info) Description 08/06/2025 Results Follow-Up Gastroenterology - [place] [address] [facility] [address] [facility] [address] [place] [address] Gia Lance, NICOLE [address] [facility] [address] [place] [address] Social History Tobacco Use Types Packs/Day Years [...] 3:45 PM EST Office Visit Orthopedic [facility] [address] [facility] [address] [place] [phone] Bessy Mesa MD [address] [facility] [address] [place] [phone] documented as of this encounter Visit Diagnoses Not on filedocumented in this encounter Care Teams Chemistry Technologist Relationship Specialty Start Date End Date Araceli Augustin PA [address] [place] [phone] PCP - General 11/20/24 documented as of this encounter
--- OUTSIDE RECORDS SUMMARY | 2025-09-19 10:54 | XMS_ITS | Patient Health Record ---
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 Engineer Name Role Phone IKER ROBLERO PA-C Primary Care Provider Unacarol bianca Latonya Lozano Unavailable [phone] Allergies Allergen (clinical drug ingredient) Drug/Non Drug Allergy documented on EMR Reaction Allergy Type Onset Date Status erythromycin ERYTHROMYCIN Skin Rash Drug Allergy A ctive Results Component Value Reference Range Notes PDF Report Reviewed date:08/21/2025 07:50:23 AM Interpretation: Performing Lab:[facility] [place], [address], [address], [place], Phone - [phone], Director - [facility] Notes/Report: Clinical Information:SRC:UR Chlamydia/GC Amplification Reviewed date:08/20/2025 05:10:49 PM Interpretation: Performing Lab:[facility] [place], [address], [address], [place], Phone - [phone], Director - [facility] Notes/Report: Clinical Information:SRC:UC Chlamydia trachomatis, AZEB Negative Negative Neisseria gonorrhoeae, AZEB Negative Negative PDF Report Reviewed date:08/20/2025 05:10:43 PM Interpretation: Performing Lab:[facility] [place], [address], [address], [place], Phone - [phone], Director - [facility] Notes/Report: Clinical Information:SRC:UC Syphilis RPR w/reflex Reviewed date:08/21/2025 07:51:06 AM Interpretation: Performing Lab:[facility] [place], [address], [address], [place], Phone - [phone], Director - [facility] Notes/Report: Clinical Information:SRC:UR RPR Non Reactive Non Reactive HCV Antibody-[id number] Reviewed date:08/21/2025 07:51:12 AM Interpretation: Performing Lab:[facility] [place], [address], [place], Phone - [phone], [facility] Notes/Report: Clinical Information:SRC:UR Hep C Virus Ab Non Reactive Non Reactive HCV antibody alone does not differentiate between previously resolved infection and active infection. Equivocal and Reactive HCV antibody results should be followed up with an HCV RNA test to support the diagnosis of active HCV infection. M genitalium AZEB, Urine-1800 25 Reviewed date:08/21/2025 07:50:59 AM Interpretation: Performing Lab:[facility] [place], [address], [place], Phone - [phone], [facility] Notes/Report: Clinical Information:SRC:UR Mycoplasma genitalium AZEB Negative Negative HIV Ab/p24 Ag with Reflex-08 3935 Reviewed date:08/21/2025 07:51:19 AM Interpretation: Performing Lab:[facility] [place], [address], [place], Phone - [phone], Director - [facility] Notes/Report: Clinical Information:SRC:UR HIV Ab/p24 Ag Screen Non Reactive Non Reactive HIV-1/HIV-2 antibodies and HIV-1 p24 antigen were NOT detected. There is no laboratory evidence of HIV infection. HIV Negative HBsAg Screen-503226 Reviewed date:08/21/2025 07:50:52 AM Interpretation: Performing Lab:[facility] [place], [address], [place], Phone - [phone], Director - [facility] Notes/Report: Clinical Information:SRC:UR HBsAg Screen Negative Negative PDF Report Reviewed date:07/03/2025 07:41:07 AM Interpretation: Performing Lab:[facility] [place], [address] [place] [address], [place], Phone - [phone], Director - [place] Notes/Report: Clinical Information:SRC: PDF Report Reviewed date:07/10/2025 04:46:44 PM Interpretation: Performing Lab:[facility] [place], [address], [place], Phone - [phone], Director - [facility] Notes/Report: Clinical Information:VAG/CERV [id number] Dates / Results....05/26/2023 ASCUS POS HPV Other..............Post Menopausal No. of containers..01 ThinPrep Vial [id number]-Zca IGP No Culture 30 Plus Reviewed date:07/17/2025 02:32:32 PM Interpretation: Performing Lab:[facility], [address], [address], [place], Phone - [phone], Director - [facility] Notes/Report: Clinical Information:VAG/CERV [id number] Dates / Results....05/26/2023 ASCUS POS HPV Other..............Post Menopausal No. of containers..01 ThinPrep Vial Clinical Information:VAG/CERV [id number] Dates / Results....05/26/2023 ASCUS POS HPV Other..............Post Menopausal No. of containers..01 ThinPrep Vial DIAGNOSIS: NEGATIVE FOR INTRAEPITHELIAL LESION OR MALIGNANCY. 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 Specimen adequacy: Satisfactory for evaluation. Endocervical and/or squamous metaplastic cells (endocervical component) are present. Clinician provided ICD10: Z01.419 Z11.51 Performed by: Tianna vasquez, Cake Winder (ASCP) QC reviewed by: Tutu weaver, Cake Winder (ASCP) . . Note: The Pap smear [...] Genotype 18,45 Negative Negative PDF Report Reviewed date:12/14/2024 02:47:46 PM Interpretation: Performing Lab:[facility], Phone - [phone], Director - [facility] Notes/Report: Test(s) 543247-Hqm. B1, Whole Blood was developed and its performance characteristics determined by [facility]. It has not been cleared or approved by the Food and Drug Administration. Vitamin B1 (Thiamine), Blood -840681 Reviewed date:12/14/2024 02:48:18 PM Interpretation: Performing Lab:[facility] [address], Phone - [phone], Director [facility] Notes/Report: Test(s) 570348-Eyt. B1, Whole Blood was developed and its performance characteristics determined by [facility]. It has not been cleared or approved by the Food and Drug Administration. Vit. B1, Whole Blood 131.3 66.5-200.0 nmol/L Vitamin D, 41-Nkbmlsy-026737 Reviewed date:12/14/2024 02:47:53 PM Interpretation: Performing Lab:[facility] [address], Phone - [phone], Director - [facility] Notes/Report: Test(s) 927926-Ofj. B1, Whole Blood was developed and its performance characteristics determined by [facility]. It has not been cleared or approved by the Food and Drug Administration. Vitamin D, 25-Hydroxy 48.0 30.0-100.0 ng/mL Vitamin D deficiency has been defined by the [place] of Medicine and an Endocrine Society practice guideline as a level of serum 25-OH vitamin D less than 20 ng/mL (1,2). The Endocrine Society went on to further define vitamin D insufficiency as a level between 21 and 29 ng/mL (2). 1. IOM ([place] of Medicine). 2010. Dietary reference intakes for calcium and D. [place]: The National Academies Press. 2. Angelica MF, Leonel NC, Rochelle-Brandan MCKENNA, et al. Evaluation, treatment, and prevention of vitamin D deficiency: an Endocrine Society clinical practice guideline. JCEM. 2010; 96(7):1911-30. Triiodothyronine (T3), Free- 123349 Reviewed date:12/14/2024 02:48:08 PM Interpretation: Performing Lab:[facility] [address], Phone - [phone], [facility] Notes/Report: Test(s) 961847-Acu. B1, Whole Blood was developed and its performance characteristics determined by [facility]. It has not been cleared or approved by the Food and Drug Administration. Triiodothyronine (T3), Free 2.9 2.0-4.4 pg/mL TSH-708444 Reviewed date:12/14/2024 02:48:55 PM Interpretation: Performing Lab:[facility] [address], Phone - [phone], [facility] Notes/Report: Test(s) 111168-Tap. B1, Whole Blood was developed and its performance characteristics determined by [facility]. It has not been cleared or approved by the Food and Drug Administration. TSH 0.492 0.450-4.500 uIU/mL Thyroxine (T4) Free, Direct- 523558 Reviewed date:12/14/2024 02:48:28 PM Interpretation: Performing Lab:[facility] [address], Phone - [phone], [facility] Notes/Report: Test(s) 799391-Ctm. B1, Whole Blood was developed and its performance characteristics determined by [facility]. It has not been cleared or approved by the Food and Drug Administration. T4,Free(Direct) 1.16 0.82-1.77 ng/dL Vitamin K91-182580 Reviewed date:12/14/2024 02:48:01 PM Interpretation: Performing Lab:[facility] [address], Phone - [phone], [facility] Notes/Report: Test(s) 275693-Kxu. B1, Whole Blood was developed and its performance characteristics determined by [facility]. It has not been cleared or approved by the Food and Drug Administration. Vitamin B12 413 491-7126 pg/mL Urinalysis Reviewed date:10/14/2024 01:33:35 PM Interpretation: Performing Lab: Notes/Report: PH 8.0 PROTEIN Neg GLUCOSE Neg BLOOD Neg Urinalysis, Complete-887195 Reviewed date:07/03/2025 07:42:16 AM Interpretation: Performing Lab:[facility] [address], Phone - [phone], [facility] Notes/Report: Clinical Information:SRC:UC Clinical Information:SRC:UC Specific [place] 1.013 1.005-1.030 pH 6.5 5.0-7.5 Urine-Color Yellow [...] Bacteria None seen None seen/Few Urine Culture, Routine-32780 7 Reviewed date:07/03/2025 07:42:29 AM Interpretation: Performing Lab:[facility], [address] [place] [address], Phone - [phone], Director - [place] Notes/Report: Clinical Information:SRC:UC Clinical Information:SRC:UC Urine Culture, Routine Final report Result 1 Mixed urogenital ramone 25,000-50,000 colony forming units per mL Reason For Referral No Information Medications Medication SIG (Take, Route, Frequency, Duration) Notes Start Date End Date Status Vitamin C 500 MG as directed Orally Active Escitalopram Oxalate 10 MG Oral; Duration: 30 Days Active Turmeric 500 MG as directed Orally Active Gabapentin 100 MG TAKE 1 CAPSULE BY [facility] 3 TIMES A DAY [...] test positive, high risk on vaginal specimen ([id number]) Cervical high risk human papillomavirus (HPV) DNA test positive (R87.810) Active confirmed Problem Postmenopausal atrophic vaginitis (70713894) Postmenopausal atrophic vaginitis (N95.2) Active confirmed Problem Cervicovaginal cytology: Low grade squamous intraepithelial lesion (663217114) Low grade squamous intraepithelial lesion on cytologic smear of cervix (LGSIL) (R87.612) Active confirmed Problem Non-toxic single thyroid nodule (837938075) Nontoxic single thyroid nodule (E04.1) Active confirmed Problem Autoimmune thyroiditis (96634961) Autoimmune thyroiditis (E06.3) Active confirmed Problem Anxiety disorder (234877623) Anxiety disorder, unspecified (F41.9) Active confirmed Problem Epidermal cyst (235264249) Epidermal cyst (L72.0) Active confirmed Problem Rheumatoid arthritis (75485939) Rheumatoid arthritis, unspecified (M06.9) Active confirmed Problem Endometrial intraepithelial neoplasia (383265437) 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) Active confirmed Problem Postcoital bleeding (36176805) Postcoital and contact bleeding (N93.0) Active confirmed Problem Unspecified abnormal finding in specimens from female genital organs (R87.9) Active confirmed Problem Menopause (111033262) Menopausal and female climacteric states (N95.1) Active confirmed Problem Anxiety state (893162595) Anxiety state, unspecified (300.00) Active confirmed Major Vital Signs Temperature 97.3 degrees Fahrenheit 07/03/2025 Blood pressure diastolic 84 mm Hg 07/03/2025 Height 62 in 07/03/2025 Blood pressure systolic 128 mm Hg 07/03/2025 Weight 161 lbs 07/03/2025 BMI 29.44 kg/m2 07/03/2025 Encounters Encounter Location Date Provider Diagnosis [facility] [address] [address] 12/05/2024 Latonya Lozano Total [address] [address] 02/14/2025 Latonyaines DiazLozano Total [address] [address] 03/06/2025 Latonyaines DiazLozano Total [address] [address] 10/14/2024 Latonya Mcgeeva Encounter for gynecological examination (general) (routine) without abnormal findings Z01.419 ; Encounter for screening mammogram for malignant neoplasm of breast Z12.31 ; Personal history of other diseases of the female genital tract Z87.42 ; Cervical high risk human papillomavirus (HPV) DNA test positive R87.810 and Postmenopausal atrophic vaginitis N95.[address] [address] 12/09/2024 Latonyaines Mcgeeva Other fatigue R53.83 and Menopausal and female climacteric states N95.[address] [address] 07/03/2025 Latonyaines Mcgeeva Lower abdominal pain , unspecified R10.30 ; Atypical squamous cells of undetermined significance on cytologic smear of vagina (ASC-US) R87.620 ; Cervical high risk human papillomavirus (HPV) DNA test positive R87.810 and Encounter for screening for human papillomavirus (HPV) Z11.[address] [address] 12/03/2024 Latonyaines DiazLozano Total [address] [address] 12/12/2024 Latonyaines DiazLozano [address] [address] 01/22/2025 Latonyaines DiazLozano [address] [address] 02/16/2025 Latonya Lozano Total [facility] [address] [address] 06/30/2025 Latonya Lozano Dysuria R30.0 Total [facility] [address] [address] 08/19/2025 Latonya Lozano High risk heterosexu al behavior Z72.[address] [address] 09/09/2025 Latonya Lozano Total [address] [address] 09/18/2025 Latonya Lozano Assessments Encounter Date Diagnosis (ICD [...] AND NEEDS TESTOSTERONE THERAPY, WILL REFER TO [facility]. WARNED PAT OF POSSIBLE VAGINAL BLEEDING. [...] 10/14/2024 [facility] Digital Mammo Screening 05/04/2023 Chlamydia/GC Amplification-[id number] 2024 Insurance Providers Payer Name Payer Address Payer Phone Subscriber Number Group Number Insured Name Patient Relationship to Insured Coverage Start Date Coverage End Date GEHA [address] [address] CAMILA QUINONEZ [id number] MARCUS OLSON Self - patient is the [...]
--- OUTSIDE RECORDS SUMMARY | 2025-09-19 10:55 | XMS_ITS | Clinical Summary ---
Author Organization [facility] Address [address] [place] [address] Phone Care Team Providers Care Office Helper Name Role Phone Araceli Augustin Primary [...] necrosis of lunate bone of right wrist (CMS/[facility] V24, CMS/[facility] V28) 06/24/2025 Osteochondrosis of lunate of left wrist 06/21/20 25 Suicidal ideation 04/21/2025 Chronic right-sided thoracic back pain 5 Acute bilateral low back pain with bilateral sci atica 01/02/2025 Assessment & Plan (01/02/2025 5:46 PM EST): Ms. Phillips describes increasing issues with her lower back and legs. The lumbar CT from [facility] show degenerative disc disease but not stenosis. Her description of paresthesias and leg shaking raise concerns for stenosis. Her workup at the [facility] ER did not correlate with cauda equina syndrome. She is now awaiting a lumbar spine MRI at [place]. I be happy to review that once [...] this, is currently seeing 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 (CMS/HCC V24, CMS/HCC V28) (Primary Dx) 09/15/2025 Telephone Orthopedic [facility] [address] [phone] Bessy Mesa MD 09/11/2025 12:30 PM EST Treatment [facility] [address] [phone] Nichelle Milian, NORAH 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) 09/11/2025 Telephone Orthopedic [facility] [address] [phone] Bessy Mesa MD 09/04/2025 12:30 PM EDT Treatment [facility] [address] [phone] Shanell Bowen COTA/Ulices 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) 08/28/2025 1:30 PM EDT Treatment [facility] [address] [phone] Nichelle Milian, OT 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) 08/21/2025 12:00 PM EDT Evaluation [facility] Occupational Therapy 175 [facility] [address] [place] [phone] Nichelle Milian OT 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) 08/14/2025 3:30 PM EDT Office Visit [facility] 250 175 [facility] [address] [place] [phone] Von Mcclure MD Knee pain (Primary Dx); Post-traumatic osteoarthritis of left knee; Primary osteoarthritis of right knee 08/13/2025 Telephone Gastroenterology [facility] 175 [facility] 175 [facility] [address] [place] [phone] Gia Lance NP 08/12/2025 3:45 PM EDT Office Visit [facility] 175 [facility] [address] [place] [phone] Bessy Mesa MD Wrist pain (Primary Dx); Osteochondrosis of lunate of right wrist; Surgery follow-up 08/06/2025 Results Follow-Up Gastroenterology [facility] 175 [facility] 175 [facility] [address] [place] [phone] Gia Lance NP 08/05/2025 Telephone [facility]opedic [facility] 250 175 [facility] [address] [place] [phone] Von Mcclure MD 08/04/2025 Telephone [facility] 250 175 [facility] [address] [place] [address] Bessy Mesa MD 07/29/2025 3:45 PM EDT Office Visit [facility] 175 [facility] [address] [place] [phone] Bessy Mesa MD Osteochondrosis of lunate of right wrist (Primary Dx); Surgery follow-up 07/29/2025 Telephone Orthopedic [facility] 250 175 [facility] [address] [place] [phone] Von Mcclure MD 07/28/2025 2:40 PM EDT Office Visit Gastroenterology [facility] [address] 175 [facility] [address] [place] [phone] Gia Lance NP Erosive gastropathy (Primary Dx); Abdominal pain, chronic, right upper quadrant; History of Helicobacter pylori infection; Esophageal dysmotility; Tobacco use disorder 07/24/2025 8:40 AM EDT Consult Endocrinology [address] [phone] Marian Turner MD Hypothyroidism (acquired) (Primary Dx); Hyperthyroidism 07/24/2025 Telephone [facility]opedic [facility] 175 [facility] [address] [place] [phone] Bessy Mesa MD 07/23/2025 3:30 PM EDT Office Visit [facility] 175 [facility] [address] [place] [phone] Nichelle Archibald PA Surgery follow-up (Primary Dx) 07/23/2025 Telephone [facility] 250 175 [facility] [address] [place] [phone] Jacquelyn Sow 07/16/2025 1:10 PM EDT Anesthesia Event [facility] OR [address] [place] [phone] Magda Siegel MD Chang, Ling, CRNA 07/16/2025 12:30 PM EDT - 07/16/2025 2:00 PM EDT Surgery [facility] OR [address] [place] [phone] Bessy Mesa MD core decompression right distal radius [44447 (CPT )] 07/16/2025 10:33 AM EDT - 07/16/2025 4:05 PM EDT Hospital Encounter [facility] OR [address] [place] [phone] Bessy Mesa MD 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 (CMS/HCC V24, CMS/HCC V28) Discharge Disposition: Home or Self Care 07/16/2025 7:20 AM EDT - 07/16/2025 11:59 PM EDT Hospital Encounter [facility] Xray [address] [place] [phone] Pain Discharge Disposition: Home or Self Care 07/16/2025 Telephone Gastroenterology [facility] 175 [facility] 175 [facility] [address] [place] [phone] Gia Lance NP 07/15/2025 Telephone Orthopedic [facility] [address] [phone] Bessy Mesa MD 07/08/2025 6:02 PM EDT - 07/08/2025 10:10 PM EDT Emergency [facility] Emergency [address] [place] [phone] Jalil Steven MD Goebel, Mathew, MD Spinal stenosis of lumbar region, unspecified whether neurogenic claudication present (Primary Dx) Discharge Disposition: Home or Self Care 07/08/2025 3:15 PM EDT Consult [facility] 175 [facility] [address] [place] [phone] Bessy Mesa MD Osteochondrosis of lunate of left wrist (Primary Dx) 06/26/2025 Telephone Orthopedic [facility] [address] [phone] Siria Palumbo 06/25/2025 8:30 AM EDT Ancillary Procedure [facility] [address] [facility] [address] [place] [address] Dyspnea on exertion 06/25/2025 Telephone [facility]opedic [facility] [address] [phone] Bessy Mesa MD 06/20/2025 8:00 AM EDT Office Visit [facility] 175 [facility] [address] [place] [phone] Bessy Mesa MD Osteochondrosis of lunate of left wrist (Primary Dx) 06/20/2025 Telephone Orthopedic Surgery - [place] 250 175 [facility] [address] [place] [address] Bessy Mesa MD 06/19/2025 Telephone Gastroenterology [facility] [address] 175 [facility] [address] [place] [address] Gia Lance, NICOLE from Last 3 Months Immunizations Immunization Administration Dates Next Due Hepatitis B (Duslsts-O-Zeqco , Recombivax HB-Adult) 19yo and older 02/21/2022,01/17/2022 [...] tissue CARPAL TUNNEL RELEASE 01/20/2020 Right PROCEDURE: [place] NEUROPLASTY &/TRANSPOS MEDIAN NRV CARPAL TUNNE COLONOSCOPY OTHER SURGICAL HISTORY 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 [facility] WRIST SURGERY 11/06/2021 - 11/05/2022 Left [...] PM EST Office Visit Orthopedic Surgery - [place] 175 [facility] [address] [place] [phone] Bessy Mesa MD 175 [facility] [address] [place] [address] Health Maintenance Due Date Last [...] eventual strength) 09/11 Ongoing 2. 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 , [place] [address] Krystina Austin MD, PhD - Multi Line Claims Adjuster Stool Rectum structure / Unknown Non-blood Collection / Unknown 07/30/2025 9:58 AM EDT 07/30/2025 9:58 AM EDT Gia Lance NP LAB BODY FLUIDS AND STOOLS ROD ESCALANTE Final Result [facility] [address] [place] [address] * Thyroid stimulating hormone with reflex to free t4 and free t3 (07/24/2025 9:32 AM EDT) TSH 1.20 0.40 - 4.00 mcIU/mL LAB CHEMISTRY METHOD 07/24/2025 12:39 PM EDT [facility] Blood Venous blood specimen / Unknown Venipuncture / Unknown 07/24/2025 9:32 AM EDT 07/24/2025 9:32 AM EDT Marian Turner MD LAB BLOOD ORDERABLES Final Res ult Performing Organization Address City/[facility]/ZIP Co de Phone Number [facility] [address] [place] [address], * Thyroid stimulating immunoglobulin (07/24/2025 9:32 AM EDT) Thyroid Stimulating Immunoglobulin <0.10 <0.10 IU/L 07/28/2025 7:54 PM EDT [facility] Comment: Thyroid stimulating immunoglobulins (TSI) concentrations greater than or equal to (>=) 0.55 IU/L have a clinical sensitivity of at least 98.6%, and a clinical specificity of at least 98.5%, for the differential diagnosis of Graves' Disease. TSI concentrations for patients with other thyroid or autoimmune diseases range from 0.11 to 0.39 IU/L. Test performed at [facility], [address] [place] [address] Krystina Austin MD, PhD - Multi Line Claims Adjuster Blood Venous blood specimen / Unknown Venipuncture / Unknown 07/24/2025 9:32 AM EDT 07/24/2025 9:32 AM EDT us Marian Turner MD LAB BLOOD ORDERABLES Final Res ult Performing Organization Address [facility]/ZIP Co de Phone Number [facility] [address] [place] [address] * Triiodothyronine free (07/24/2025 9:32 AM EDT) T3, Free 316 230 - 420 pcg/dL LAB CHEMISTRY METHOD 07/24/2025 12:38 PM EDT [facility] Blood Venous blood specimen / Unknown Venipuncture / Unknown 07/24/2025 9:32 AM EDT 07/24/2025 9:32 AM EDT us Marian Turner MD LAB BLOOD ORDERABLES Final Res ult [facility] [address] [place] [address], [place] [phone] * Thyroxine free (07/24/2025 9:32 AM EDT) Free T4 1.16 0.70 - 1.80 ng/dL LAB CHEMISTRY METHOD 07/24/2025 12:38 PM EDT [facility] Blood Venous blood specimen / Unknown Venipuncture / Unknown 07/24/2025 9:32 AM EDT 07/24/2025 9:32 AM EDT us Marian Turner MD LAB BLOOD ORDERABLES Final Res ult [facility] [address] [place] [address], [place] [phone] * Tissue exam (07/16/2025 1:50 PM EDT) Final Diagnosis Bone, Right, Distal Radius-decomp ression: -FRAGMENTS OF TRABECULAR BONE WITH NO SPECIFIC PATHOLOGIC CHANGE 07/18/2025 12:03 PM EDT [facility] Comment Intact specimen with articular cartilage is preferred specimen for evaluating avascular necrosis. 07/18/2025 12:03 PM EDT [facility] Gross Description A. Wrist, Right, Distal Radius: Labeled right dis wrist R . Received in formalin is a 1.4 x 0.8 x 0.2 cm aggregate of hard, rocha-red bone fragments which are wrapped in paper and submitted in toto in one cassette, multiple pieces, following decalcificati on. TS 07/18/2025 12:03 PM EDT [facility] Disclaimer Unless otherwise specified, all tissue is 10% NB formalin fixed and paraffin embedded. 07/18/2025 12:03 PM EDT [facility] Bone Structure of right wrist region / Unknown 07/16/2025 1:50 PM EDT 07/16/2025 3:19 PM EDT Bessy Mesa MD LAB PATHOLOGY ORDERABLES Nataliia vasquez Result [facility] [address] [place] [address], * (ABNORMAL) Culture anaerobic with gram stain (07/16/2025 1:40 PM EDT) Culture, Anaerobic No Growth of Anaerobes. 07/24/2025 8:51 AM EDT [facility] Culture, Anaerobic Staphylococcus warneri(A) ABBEY 07/24/2025 8:51 AM EDT [facility] Comment: SPARSE Beta-lactamase negative The organism value for this result has been updated. These results have been appended to the previously preliminary verified report. Edited result: Previously reported as Gram Positive Cocci on 07/20/2025 at 0832 EDT. Culture, Anaerobic Streptococcus viridans group(A) ABBEY 07/24/2025 8:51 AM EDT [facility] Comment: SPARSE Susceptibility testing not [...] species,not anthracis(A) ABBEY 07/24/2025 8:51 AM EDT [facility] Comment: SPARSE The organism value for this result has been updated. These results have been appended to the previously preliminary verified report. Gram Stain Result Refer to Aerobic culture for gram stain results. 07/24/2025 8:51 AM EDT [facility] Swab Structure of right wrist [...] OR DERABLES Final Result Performing Organization Address [facility] de Phone Number [facility] [address] [place] [address], [place] [phone] * Culture wound deep (07/16/2025 1:40 PM EDT) Culture, Wound No growth at 3 days 07/19/2025 10:14 AM EDT [facility] Gram Stain Result No polymorphonuclear leukocytes, No epithelial cells, and No organisms noted 07/19/2025 10:14 AM EDT [facility] Swab Structure of right wrist region / Unknown 07/16/2025 1:40 PM EDT 07/16/2025 2:37 PM EDT us Bessy Mesa MD LAB MICROBIOLOGY - GENERAL OR DERABLES Final Result Performing Organization Address [facility] Co de Phone Number [facility] [address] [place] [address], [place] [phone] * TH AN LMA(NO CHARGE) (07/16/2025 1:23 [...] spinal canal stenosis T12-L1 through L4-L5, and mrvf-rj-aumgxpdv bilateral L4-L5 neural foraminal stenosis. 2. Unremarkable [...] spinal canal stenosis from T12-L1 through L4-L5. Ubib-cn-qdtlglxa bilateral L4-L5 neural foraminal stenosis. Unremarkable appearance [...] spinal canal stenosis from T12-L1 through L4-L5. Ijkx-fh-ymjcxyux bilateral L4-L5 neural foraminal stenosis. Unremarkable appearance of the conus medullaris and cauda equina. Paraspinous musculature intact. IMPRESSION: 1. Multilevel degenerative changes of the lumbar spine as described contributing to mild multifocal spinal canal stenosis T12-L1 through L4-L5, and ldea-dq-cnccoasg bilateral L4-L5 neural foraminal stenosis. 2. Unremarkable appearance of the conus medullaris and cauda equina. This document has been electronically signed by: James Sheth MD on 07/08/2025 21:13:43 Jalil Steven MD [facility] MRI PROCEDURES Final Result * (ABNORMAL) CBC auto differential (07/08/2025 7:06 PM EDT) WBC 7.5 4.8 - 10.8 K/mcL LAB HEMETOLOGY METHOD 07/08/2025 7:22 PM EDT [facility] RBC 4.20 3.80 - 4.80 M/mcL LAB HEMETOLOGY METHOD 07/08/2025 7:22 PM EDT [facility] Hemoglobin 13.8 11.5 - 16.0 g/dL LAB HEMETOLOGY METHOD 07/08/2025 7:22 PM EDT [facility] Hematocrit 40.7 35.0 - 47.0 % LAB HEMETOLOGY METHOD 07/08/2025 7:22 PM EDT [facility] MCV 97.4 79.0 - 98.0 FL LAB HEMETOLOGY METHOD 07/08/2025 7:[facility] MCH 33.0(H) 27.0 - 32.0 pcg LAB HEMETOLOGY METHOD 07/08/2025 7:22 [facility] MCHC 33.9 32.0 - 37.0 g/dL LAB HEMETOLOGY METHOD 07/08/2025 7:22 [facility] RDW 12.7 11.0 - 15.0 % LAB HEMETOLOGY METHOD 07/08/2025 7:22 PM [facility] Platelets 311 130 - 400 K/mcL LAB HEMETOLOGY METHOD 07/08/2025 7:22 PM [facility] MPV 9.3 7.0 - 11.0 FL LAB HEMETOLOGY METHOD 07/08/2025 7:22 [facility] NRBC 0.0 <1.0 % LAB HEMETOLOGY METHOD 07/08/2025 7:22 PM [facility] NRBC Absolute 0.00 <0.10 K/mcL LAB HEMETOLOGY METHOD 07/08/2025 7:22 PM [facility] Neutrophils Relative 49.3 % LAB HEMETOLOGY METHOD 07/08/2025 7:22 PM [facility] Lymphocytes Relative 39.4 % LAB HEMETOLOGY METHOD 07/08/2025 7:22 PM [facility] Monocytes Relative 7.6 % LAB HEMETOLOGY METHOD 07/08/2025 7:22 PM [facility] Eosinophils Relative 2.9 % LAB HEMETOLOGY METHOD 07/08/2025 7:22 PM [facility] Basophils Relative 0.5 % LAB HEMETOLOGY METHOD 07/08/2025 7:22 PM [facility] Immature Granulocytes Relative 0.3 % LAB HEMETOLOGY METHOD 07/08/2025 7:22 PM EDT [facility] Neutrophils Absolute 3.68 1.50 - 7.00 K/mcL LAB HEMETOLOGY METHOD 07/08/2025 7:22 PM EDT [facility] Lymphocytes Absolute 2.94 1.00 - 5.00 K/mcL LAB HEMETOLOGY METHOD 07/08/2025 7:22 PM EDT [facility] Monocytes Absolute 0.57 0.20 - 1.00 K/mcL LAB HEMETOLOGY METHOD 07/08/2025 7:22 PM EDT [facility] Eosinophils Absolute 0.22 0.00 - 0.50 K/mcL LAB HEMETOLOGY METHOD 07/08/2025 7:22 PM EDT [facility] Basophils Absolute 0.04 0.00 - 0.20 K/mcL LAB HEMETOLOGY METHOD 07/08/2025 7:22 PM EDT [facility] Immature Granulocytes Absolute 0.02 0.00 - 0.03 K/mcL LAB HEMETOLOGY METHOD 07/08/2025 7:22 PM EDT [facility] Blood Venous blood specimen / Unknown Venipuncture / Unknown 07/08/2025 7:06 PM EDT 07/08/2025 7:15 PM EDT us Juan F Doshi MD LAB BLOOD ORDERABLES Final Result [facility] [address] [place] [address], * Lipase (07/08/2025 7:06 PM EDT) Lipase 19 13 - 75 unit/L LAB CHEMISTRY METHOD 07/08/2025 7:54 PM EDT [facility] Blood Venous blood specimen / Unknown Venipuncture / Unknown 07/08/2025 7:06 PM EDT 07/08/2025 7:15 PM EDT Juan F Doshi MD LAB BLOOD ORDERABLES Final Result [facility] [address] [place] [address], [place] [phone] * Comprehensive metabolic panel (07/08/2025 7:06 PM EDT) Sodium 140 133 - 145 mmol/L LAB CHEMISTRY METHOD 07/08/2025 7:54 PM T [facility] Potassium 4.1 3.5 - 5.5 mmol/L LAB CHEMISTRY METHOD 07/08/2025 7:54 PM [facility] Chloride 104 96 - 110 mmol/L LAB CHEMISTRY METHOD 07/08/2025 7:54 PM [facility] CO2 29 21 - 32 mmol/L LAB CHEMISTRY METHOD 07/08/2025 7:54 PM [facility] Anion Gap 7 3 - 11 LAB CHEMISTRY METHOD 07/08/2025 7:54 PM [facility] Glucose 81 70 - 100 mg/dL LAB CHEMISTRY METHOD 07/08/2025 7:54 PM [facility] BUN 8 5 - 25 mg/dL LAB CHEMISTRY METHOD 07/08/2025 7:54 PM [facility] Creatinine 0.81 0.50 - 1.10 mg/dL LAB CHEMISTRY METHOD 07/08/2025 7:54 PM [facility] eGFR 84 >=60 mL/min/1. 73m2 LAB CHEMISTRY METHOD 07/08/2025 7:54 PM [facility] Comment:Calculation based on the Chronic Kidney Disease Epidemiology Collaboration (CKD-EPI) equation refit without adjustment for race. BUN/Creatinine Ratio 9.9 LAB CHEMISTRY METHOD 07/08/2025 7:54 PM [facility] Calcium 9.8 8.5 - 10.5 mg/dL LAB CHEMISTRY METHOD 07/08/2025 7:54 PM EDT [facility] AST (SGOT) 23 10 - 42 unit/L LAB CHEMISTRY METHOD 07/08/2025 7:54 PM EDT [facility] ALT (SGPT) 29 10 - 60 unit/L LAB CHEMISTRY METHOD 07/08/2025 7:54 PM EDT [facility] Alkaline Phosphatase 102 42 - 121 unit/L LAB CHEMISTRY METHOD 07/08/2025 7:54 PM EDT [facility] Total Protein 6.8 6.0 - 8.0 g/dL LAB CHEMISTRY METHOD 07/08/2025 7:54 PM EDT [facility] Albumin 4.0 3.2 - 5.0 g/dL LAB CHEMISTRY METHOD 07/08/2025 7:54 PM EDT [facility] Total Bilirubin 0.5 0.0 - 1.4 mg/dL LAB CHEMISTRY METHOD 07/08/2025 7:54 PM EDT [facility] Blood Venous blood specimen / Unknown Venipuncture / Unknown 07/08/2025 7:06 PM EDT 07/08/2025 7:15 PM EDT us Juan F Doshi MD LAB BLOOD ORDERABLES Final Result [facility] [address] [place] [address], [place] [phone] * (ABNORMAL) TRANSTHORACIC ECHOCARDIOGRAM (TTE) COMPLETE (06/25/2025 9:10 AM EDT) Left Atrium Minor [place] 4.9 cm CV PACS Left Atrium Major [place] 4.9 cm CV PACS [place] Area Sys [...] Volume 57 mL CV PACS MV Deceleration [place] 4.1 m/s2 CV PACS E Wave Deceleration [...] PROCEDURES Final Result * [place]OS[place] [facility] (06/05/2025 12:23 PM EDT) Anatomical Region [...] previously scheduled. Narrative 06/05/2025 12:27 PM EDT [facility] GI Patient Name: Mraía Phillips Procedure Date: 06/05/2025 11:57 AM Date [...] verified by the physician, the nurse, the process owner and the computer field technician in the pre-procedure area in the [...] not prolapse). Procedure Code(s): --- Professional --- 90484, Colonoscopy, flexible; with biopsy, single or multiple Diagnosis Code(s): --- Professional --- R19.7, Diarrhea, unspecified CPT copyright 2020 [employer]. All rights reserved. The codes documented in this report are preliminary and upon piano case and bench assembler review may be revised to meet current compliance requirements. Melba Bunn MD 06/05/2025 12:27:19 PM This report has been signed electronically.Melba Bunn MD Number of Addenda: 0 Note Initiated On: 06/05/2025 11:57 AM Scope Withdrawal Time: 0 hours 6 minutes 22 seconds Scope In: 12:10:33 PM Scope Out: 12:23:27 PM Endoscopy Department at [facility] - [address] [place] [phone] Procedure Note Melba Bunn MD - 06/05/2025 [facility] GI Patient Name: María Phillips Procedure [...] the physician, the nurse, theanesthetist and the computer field technician in the pre-procedure area in the [...] not prolapse). Procedure Code(s): --- Professional --- 61460, Colonoscopy, flexible; with biopsy, singleor multiple Diagnosis Code(s): --- Professional --- R19.7, Diarrhea, unspecified CPT copyright 2020 [employer]. All rights reserved. The codes documented in this report are preliminary and upon piano case and bench assembler reviewmay be revised to meet current compliance requirements. Melba Bunn MD 06/05/2025 12:27:19 PM This report has been signed electronically.Melba Bunn MD Number of Addenda: 0 Note Initiated On: 06/05/2025 11:57 AM Scope Withdrawal Time: 0 hours 6 minutes 22 seconds Scope In: 12:10:33 PM Scope Out: 12:23:27 PM Endoscopy Department at [facility] - [address] [place] [phone] IMPRESSION: - The examined portion of the [...] year. Mammo Location: [facility], [address] [place] [address], [id number], . -------- FINAL REPORT -------- Dictated By: Stefani Zamora Dictated Date: 02/06/2025 09:43 ET Assigned Physician: Stefani Zamora Reviewed and Electronically Signed By: Stefani Zamora Signed Date: 02/06/2025 09:45 ET Workstation ID: [id number] Transcribed By: Self Edit Transcribed Date: 02/06/2025 [...] year. Mammo Location: [facility], [address] [place] [address], [id number], . -------- FINAL REPORT -------- Dictated By: Stefani Zamora Dictated Date: 02/06/2025 09:43 ET Assigned Physician: Stefani Zamora Reviewed and Electronically Signed By: Stefani Zamora Signed Date: 02/06/2025 09:45 ET Workstation ID: [id number] Transcribed By: Self Edit Transcribed Date: 02/06/2025 09:43 ET us Araceli BOOTHE IMG BI PROCEDURES Final Result * Lipid panel with reflex to direct LDL (10/28/2024 2:36 PM EST) Cholesterol 196 0 - 200 mg/dL LAB CHEMISTRY METHOD 10/28/2024 4:17 PM EST [facility] Triglycerides 51 0 - 150 mg/dL LAB CHEMISTRY METHOD 10/28/2024 4:17 PM EST [facility] HDL 111 >=40 mg/dL LAB CHEMISTRY METHOD 10/28/2024 4:17 PM EST [facility] LDL Calculated 75 0 - 100 mg/dL LAB CHEMISTRY METHOD 10/28/2024 4:17 PM EST [facility] VLDL Cholesterol Corby 10.2 mg/dL LAB CHEMISTRY METHOD 10/28/2024 4:17 PM EST [facility] Non HDL Chol. (LDL+VLDL) 85 <145 mg/dL LAB CHEMISTRY METHOD 10/28/2024 4:17 PM EST [facility] Chol/HDL Ratio 1.8 0.0 - 4.4 LAB CHEMISTRY METHOD 10/28/2024 4:17 PM [facility] Blood Venous blood specimen / Unknown Venipuncture / Unknown 10/28/2024 2:36 PM EST 10/28/2024 3:06 PM EST us Araceli BOOTHE LAB BLOOD ORDERABLES Fin al Result [facility] [address] [place] [address], * HIV Screening (05/20/2024) HIV Screening abstracted Historical Provider HEALTH MAINTENANCE Final Result * Hepatitis C Screening (05/20/2024) Hepatitis C Screening abstracted Historical Provider HEALTH MAINTENANCE Final Result * Cervical Cancer Screening: HPV (07/20/2023) Pathologist [facility] Cervical Cancer Screening: HPV no interpreta tion,abstr acted Historical Provider HEALTH MAINTENANCE Final Result from Last 3 Months or Most Recently Relevant to Health Maintenance Insurance [facility] Advance Directives * Full Code - [...] currently active code status orders. Care Teams Office Helper Relationship Specialty Start Date End Date Araceli Augustin PA [address] [place] [phone] PCP - General 11/20/24
--- OUTSIDE RECORDS SUMMARY | 2025-09-19 10:55 | XMS_ITS | Encounter Summary ---
Author Organization [facility] Address [address] [place] [address] Care Team Providers Care Census Taker Name Role Phone Araceli Augustin Primary Care Provider + Reason for Visit * Reason Onset Date Comments My chart message 09/15/2025 Encounter Details Date Type Department Care Team ([facility] st Contact Info) Description 09/15/2025 Telephone Orthopedic Surgery - [place] [address] [facility] [address] [place] [address] Bessy Mesa MD 175 [facility] [address] [place] [phone] Social History Tobacco Use Types Packs/Day Years [...] Please call patient with any questions @ [phone]. Thanks. documented in this encounter Plan of Treatment Upcoming Encounters Date Type Department Care Team (Late st Contact Info) Description 09/23/2025 3:45 PM EST Office Visit Orthopedic Surgery - [place] 175 [facility] [address] [place] [address] Bessy Mesa MD 175 [facility] [address] [place] [address] documented as of this encounter Goals Goal Patient Goal Type Associated Problems Recent Progress Patient-Stated? Author OT 6-8 visits General No change(2024 4:47 PM EST) No Nichelle Milian, OT Note: 1> Indep HEP (splint weaning, ROM, pain manage, eventual strength) 09/11 Ongoing 2. Dominant R reel operator strength at least 35# (vs 20initial, [...] on filedocumented in this encounter Care Teams Census Taker Relationship Specialty Start Date End Date Araceli Augustin PA 299 [facility] [address] [place] [phone] PCP - General 11/20/24 documented as of this encounter
--- OUTSIDE RECORDS SUMMARY | 2025-09-19 10:55 | XMS_ITS | Encounter Summary ---
Author Organization [facility] Address [address] [place] [address] [place] [phone] Phone Care Team Providers Care Towel Inspector Name Role Phone Vee Allan MD Primary Care Pr ovider Encounter Details Date Type Department Care Team (Late st Contact Info) Description 10/08/2020 Ancillary Orders [facility] - Orthopaedics Outpatient Practice [address] [facility], 1st Floor, [address] [place] [address] Finn Bone MD [address] [place] [address] [email or web address] Hand joint pain Social History [...] hand documented in this encounter Care Teams Towel Inspector Relationship Specialty Start Date End Date Vee Allan MD [address] [place] [address] PCP - General Internal Medicine 09/01/20 documented as of this encounter Additional Source Comments The information contained in this document represents components of the legal health record. It is not the complete legal health record.[facility]
--- OUTSIDE RECORDS SUMMARY | 2025-09-19 10:55 | XMS_ITS | Data Portability ---
Author Organization [facility] [address] Address [address] [place] [address] Care Team Providers Care Telemetry Registered Nurse Name Role Phone [facility] Primary Care Provi ramses Assessment No assessment recorded. Plan of Treatment Reminders Order Date Submit Date Provider Last Modified By Organization Details Last Modified Time Details Appointments None recorded. Lab rapid strep group A, throat [email or web address] [facility], [address] [place] [address], [phone], 3 19:09:54 streptococc us group A, culture, throat 2022 023 [email or web address] [facility], [address] [place] [address], [place], [address], 3 19:09:54 Referral emergency medicine referral - left lower facial weakness and numbness x 5 days [email or web address] Emergency Department, [address] [place], [address], 4 18:35:48 Procedures None recorded. Surgeries None recorded. Imaging None recorded. Medication Orders prednisone 20 mg tablet 2022 023 yestrella 5 [id number], [address] [place], [address], 4 16:05:23 benzonatate 200 mg capsule [address] [id number], [address] [place], [address], 16:05:13 Patient TargetsNo targets recorded. Patient Instructions Encounter Date Encounter Id Patient Instructions Last Modified By Organization Details Last Modified Time 12/17/2022 [id number] sore throat: car e instructions [email or web address] Not [...] care for yourself at home? Take an nmop-ptm-dbktqbl pain medicine. Avoid Ibuprofen, Aleve and Aspirin if . If the doctor prescribed antibiotics, take them as directed. Do not stop taking them just because you feel better. You need to take the full course of antibiotics. Be careful when taking advv-fnu-qgjxlrz cold or influenza (flu) medicines and Tylenol [...] worse. [email or web address] Not available 12/17/2022 19:07:18 05/19/2024 [id number] head or face zehra n: care instructions [...] Negat aashish Not Available [facility] ([facility]) [address] [facility], [place], [address], 12/21/2022 06:07:48 12/17/1912/17/2022 rapid strep group A, throa t Unknown Analyte Normal = Negati ve Not Available [address] [facility] [place], [address], 12/17/2022 18:34:11 12/17/1912/17/2022 rapid strep group A, throa t Unknown Analyte negati ve Not Available [address] [address] [place], [address], 12/17/2022 18:34:11 Result Notes None recorded. 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 0.5 PPD [email or web address] Information not available 12/17/2022 Have You Recently Traveled Abroad? No [email or web address] Information not available 12/17/2022 Sex: Unknown Functional Status Question Answer Note LastModified by Organizat ion Details LastModified Time Do you use any illicit or recreational drugs? No [email or web address] Information not available 12/17/2022 Do you or have you ever used any other forms of tobacco or nicotine? No [email or web address] Information not available 12/17/2022 What is your level of alcohol consumption? Occasional Information not available 05/19/2024 Mental Status None recorded. Family History Relationship Description Onset Age of this Age Resolved Age Notes LastModified by Organization Details LastModified Time Unspecified Relation Disorder of thyroid gland [email or web address] Not available 2022 18:38:50 Medical History No [...] ICD10 Code Diagnosis IMO Codes Diagnosis [place] [id number] [place] [address] [address] 12/17/2022 17:31:11 12/17/2022 19:17:28 Sore throat 620136280 J02.9 [id number] [place] [address] [address] 05/19/2024 15:59:19 05/19/2024 16:21:39 Numbness of face 932065177 R20.0 ER now !!! Health Concerns Section Related Observation LastModified by Organization Detai ls LastModified Time None Recorded Concern Status LastModified by Organization Details LastModified Time None Recorded Advance Directives Directive None Recorded Payers Insurance Date Sequence Insurance Name Policy Number Policy Chacko Covered Member ID Chacko Member ID Guarantor Name 05/19/2024 2 [facility] [id number] [facility] 05/19/2024 1 [facility] - HA - DOS PRIOR TO 2024 (PPO) [facility] [id number] [facility] 12/17/2022 2 [employer] (POS) [facility] [id number] [facility] 05/19/2024 1 [employer] SIGNATURE [employer]MINISTRATORS - GEHA - DOS ON OR BEFORE 11/05/2023 - GEHA (PPO) [facility] [id number] [facility] 05/02/2023 1 [employer] [facility] [id number] [facility] Notes Date Note Type Note [...] Narendra Diaz NP [address] [place], [address], [place] - [facility] 12/17/2022 19:11:14 05/19/2024 text/html Facial ProblemRe ported by Patient a couple of weeks. twitching in face. x5 days having facial pain. pain level is 5/10. feels slight numbness on left side of mouth. patient also notices lower facial weakness as well. no chest pain. has slight head ache Juan F Noe DO [address] [place], [address], [place] - [facility] 05/19/2024 16:42:19 OBGyn Episode No OBEpisode recorded.
--- OUTSIDE RECORDS SUMMARY | 2025-09-19 10:56 | XMS_ITS | Continuity of Care Document ---
Author Organization [facility] [address] [facility] [address] [place] [address] Phone [phone] Care Team Providers Care Financial Reporting Specialist Name Role Phone Vee Queen M.D Care Team Informa [email or web address] Certified Rehabilitation Counselor [phone] Problems Active Problems Provider Date Anxiety Eric [...] Medications SIG Qnty Indications Ordering Provider Date Etqgnxvjladmx6mi Tablets 1 tabs by mouth at 11pm 1tabs Eric Shah M.D. 12/01/2022 [id number] Capsules Take 1 Capsule By Mouth 2 Times A Day Terence Olvera MD Iykcjjqfsyvfwxtsjl9u g TBPK follow package directions Unknown Vital Signs Date Vital Result Comment 12/01/2022 11:00am BP Systolic 130 mmHg BP Diastolic 70 mmHg Heart Rate 72 /min Height 64 inches 5'4 Weight 185.00 lb BMI (Body Mass Index) 31.8 kg/m2 Results Test Acquired Date Facility Test Result H/L Range N ote Cortisol 01/20/2023 [facility] Refer ce Lab Cortisol 0.6 g/dL 1 Cortisol 01/06/2023 [facility] Refer ce Lab Cortisol <pending> Cortisol 01/05/2023 [facility] Referen ce Lab Cortisol 5.3 g/dL 2 Free T4 01/05/2023 [facility] Referen ce Lab Free T4 0.98 ng/dL (0.70-1.80) [facility] 0.52 uIU/mL (0.4-4.2) Free T4 01/04/2023 [facility] Referen ce Lab Free T4 <pending> TSH 01/04/2023 [facility] Lab TSH <pending> 1 Reference [...]
--- OUTSIDE RECORDS SUMMARY | 2025-09-19 10:56 | XMS_ITS | Clinical Summary ---
Author Organization [facility] Address [address] [place] [address] Care Team Providers Care Wiper Blender Name Role Phone Vee Allan MD Primary [...] age to complete this topic Care Teams Wiper Blender Relationship Specialty Start Date End Date Vee Allan MD PCP - General Internal Medicine 12/05/19
--- OUTSIDE RECORDS SUMMARY | 2025-09-19 10:56 | XMS_ITS | Patient Health Record ---
Author Organization [facility] [address] Address [address] [place] [address] Care Team Providers Care Compliance Administrator Name Role Phone IKER ROBLERO Unavailable [phone] MILESROGELIO CHRISCHINO Unavailable [phone] Normoyle Sneha Unavailable [phone] Allergies Allergen (clinical drug ingredient) Drug/Non Drug Allergy documented on EMR Reaction Allergy Type Onset Date Status Macrolides and Ketolides hives Drug Allergy Active Results Component Value Reference Range Flag Notes XR KNEE 4+ VIEWS BILAT Reviewed date:01/27/2025 08:06:07 AM Interpretation: Performing Lab: Notes/Report: Note See Note [facility], a member of [employer] Patient Name: MARÍA PHILLIPS Date of : 1965 Reason for Exam: ilateral knee pain Exam Date: 01/22/2025 [id number] EST Report Status: Final Ordering Provider: CELIA [...] intercondylar notch. No seeming effusion. Neutral alignment. CALPROTECTIN, STOOL Reviewed date:05/12/2025 05:08:37 PM Interpretation: Performing Lab: Notes/Report: Calprotectin, Fecal 16.5 <50 mcg/g <50 mcg/g Normal 50 - 120 mcg/g Borderline >120 mcg/g Abnormal Borderline results suggest repeat testing in 4 to 6 weeks. Test performed at [facility], [address] , [place] [address] Krystina Austin MD, PhD - Soft Boarder URINALYSIS WITH REFLEX MICRO SCOPIC AND CULTURE Reviewed date:01/21/2025 02:02:02 PM Interpretation: Performing Lab: Notes/Report: Specific [place] Urine 1.034 1.003-1.030 H pH, Urine 6.5 5.0-8.0 pH Leukocytes, Urine Negative Negative Nitrite, Urine Negative Negative Protein, Urine Trace <=Trace mg/dL Glucose, Urine Negative Negative mg/dL Ketones, Urine Negative Negative mg/dL Urobilinogen, Urine 0.2 0.2-1.0 mg/dL Bilirubin, Urine Negative Negative Blood, Urine Negative Negative NM HEPATOBILIARY SYSTEM IMAG ING Reviewed date:05/15/2025 03:07:20 PM Interpretation: Performing Lab: Notes/Report: Note See Note [facility], a member of [employer] [facility] [employer] Patient Name: MARÍA PHILLIPS Date of : 1965 Reason for Exam: Abdominal pain, upper, recurrent, post cholecystectomy Exam Date: 05/15/2025 [id number] EST Report Status: Final Ordering Provider: ALEXEI [...] hepatobiliary scintigraphy status post cholecystectomy. Telerad TL ([id number]) -------- FINAL REPOR T -------- Dictated By: Dayami Walker i Dictated Date: 05/15/2025 11:46 ET Assigned Physician: Dayami Diehl Reviewed and Electronically Signed By: Dayami Diehl Signed Date: 025 11:48 ET Workstation ID: [id number] Transcribed By: Self Edit Transcribed Date: 05/15/2025 11:46 ET XR FLUORO UP TO 1 HOUR Reviewed date:03/11/2025 11:47:24 AM Interpretation: Performing Lab: Notes/Report: Note See Note [facility], a member of [employer] Patient Name: MARÍA PHILLIPS Date of : 1965 Reason for Exam: pain Exam Date: 03/11/2025 [id number] EST Report Status: Final Ordering Provider: DAVID [...] Wright Signed Date: 11:03 ET Workstation ID: [id number] Transcribed By: Self Edit Transcribed Date: 03/11/2025 11:02 ET CLOSTRIDIUM DIFFICILE TOXIN Reviewed date:05/08/2025 03:43:30 PM Interpretation: Performing Lab: Notes/Report: Clostridium difficile GDH Antigen Negative Negative C difficile Toxins A+B, EIA Negative Negative NEGATIVE FOR TOX IN PRODUCING CLOSTRIDIOIDES DIFFICILE, NO ADDITIONAL TESTING IS NECESSARY. GASTROINTESTINAL PATHOGENS M DARNELL STUDY Reviewed date:05/08/2025 03:43:25 PM Interpretation: [...] Detection by PCR Not Detected Not Detected XR WRIST 3+ VIEWS RIGHT Reviewed date:05/15/2025 07:58:21 AM Interpretation: Performing Lab: Notes/Report: Note See Note [facility], a member of [facility] Patient Name: MARÍA PHILLIPS Date of : 1965 Reason for Exam: rm Exam Date: 05/14/2025 [id number] EST Report Status: Final Ordering Provider: JOSHUA KAPLAN PCP: IKER ROBLERO Please see combined report with radiographs of the right hand. -------- FINAL REPOR T -------- Dictated By: Mauro Wright Dictated Date: 05/15/2025 07:41 ET Assigned Physician: Mauro Wright Reviewed and Electronically Signed By: Mauro Wright Signed Date: 025 07:41 ET Workstation ID: [id number] Transcribed By: Self Edit Transcribed Date: 05/15/2025 07:41 ET XR HAND 3+ VIEWS RIGHT Reviewed date:05/15/2025 07:58:11 AM Interpretation: Performing Lab: Notes/Report: Note See Note [facility], a member of [facility] Patient Name: MARÍA PHILLIPS Date of : 1965 Reason for Exam: pain Exam Date: 05/14/2025 [id number] EST Report Status: Final Ordering Provider: JOSHUA [...] osteoarthritis of the first carpal-metacarpal articulation. Code 86662, 06054 -------- FINAL REPOR T -------- Dictated By: Mauro Wright Dictated Date: 05/15/2025 07:41 ET Assigned Physician: Mauro Wright Reviewed and Electronically Signed By: Mauro Wright Signed Date: 025 07:44 ET Workstation ID: [id number] Transcribed By: Self Edit Transcribed Date: 05/15/2025 07:[address] SINUSES WO CONTRAST Reviewed date:01/24/2025 12:18:38 PM Interpretation: Performing Lab: Notes/Report: Note See Note [facility], a member of [employer] Patient Name: MARÍA PHILLIPS Date of : 1965 Reason for Exam: deviated septum,sinonasal polyp Exam Date: 01/24/2025 [id number] EST Report Status: Final Ordering Provider: EDMUND [...] Signed Date: 025 08:42 ET Workstation ID: [id number] Transcribed By: Self Edit Transcribed Date: 01/24/2025 08:15 ET US HEAD NECK SOFT TISSUE Reviewed date:01/24/2025 01:16:29 PM Interpretation: Performing Lab: Notes/Report: Note See Note [facility], a member of [employer] Patient Name: MARÍA PHILLIPS Date of : 1965 Reason for Exam: cervicalgia Exam Date: 01/24/2025 [id number] EST Report Status: Final Ordering Provider: CHINO YBARRA PCP: IKER ROBLERO EXAMINATION: [facility]: Pain. Symptoms for [...] Signed Date: 025 08:00 ET Workstation ID: [id number] Transcribed By: Self Edit Transcribed Date: 01/24/2025 07:55 ET XR SHOULDER 2+ VIEWS BILAT Reviewed date:01/08/2025 05:02:44 PM Interpretation: Performing Lab: Notes/Report: Note See Note [facility], a member of [employer] Patient Name: MARÍA PHILLIPS Date of : 1965 Reason for Exam: bilateral shoulder pain Exam Date: 01/08/2025 [id number] EST Report Status: Final Ordering Provider: NICHELLE [...] calcific tendinitis and narrowing of subacromial space CBC WITH AUTO DIFFERENTIAL Reviewed date:03/05/2025 07:32:33 [...] K/mcL Immature Granulocytes Absolute 0.03 0.00-0.03 K/mcL VITAMIN D 25 HYDROXY Reviewed date:03/06/2025 07:35:20 AM Interpretation: Performing Lab: Notes/Report: Vit D, 25-Hydroxy 30.1 30.0-80.0 ng/mL MAGNESIUM Reviewed date:03/05/2025 07:32:01 PM Interpretation: Performing Lab: Notes/Report: Magnesium 2.3 1.9-2.6 mg/dL COMPREHENSIVE METABOLIC PANE L Reviewed date:03/05/2025 [...] 3.2-5.0 g/dL Total Bilirubin 0.4 0.0-1.4 mg/dL THYROID STIMULATING HORMONE WITH REFLEX TO FREE T4 AND FREE T3 Reviewed date:03/06/2025 07:35:25 AM Interpretation: Performing Lab: Notes/Report: TSH 1.43 0.40-4.00 mcIU/mL VITAMIN B12 Reviewed date:03/05/2025 07:31:11 PM Interpretation: Performing Lab: Notes/Report: Vitamin B-12 463 250-900 pcg/mL IRON AND TIBC Reviewed date:03/05/2025 07:31:56 PM Interpretation: Performing Lab: Notes/Report: Iron 71 40-150 mcg/dL TIBC 417 250-450 mcg/dL Iron Saturation 17 15-50 % FOLATE Reviewed date:03/05/2025 07:31:03 PM Interpretation: Performing Lab: Notes/Report: Folate 7.2 2.8-17.0 ng/ml FERRITIN Reviewed date:03/05/2025 07:31:08 PM Interpretation: Performing Lab: Notes/Report: Ferritin 58 8-252 ng/mL HELICOBACTER PYLORI ANTIGEN, STOOL Reviewed date:05/13/2025 04:03:38 PM Interpretation: Performing Lab: Notes/Report: Helicobacter Pylori Ag DETECTED Not detected A This test was performed at [facility] [...] performed at [facility], [facility] [place] [address] Krystina Austin MD, PhD - Soft Boarder XR FLUORO UP TO 1 HOUR Reviewed date:02/04/2025 05:11:16 PM Interpretation: Performing Lab: Notes/Report: Note See Note [facility], a member of [employer] Patient Name: MARÍA PHILLIPS Date of : 1965 Reason for Exam: pain Exam Date: 02/04/2025 [id number] EST Report Status: Final Ordering Provider: DAVID [...] Dictated Date: 02/04/2025 12:51 ET Assigned Physician: Aelxey Morton Reviewed and Electronically Signed By: Alexey Morton Signed Date: 025 12:53 ET Workstation ID: [id number] Transcribed By: Self Edit Transcribed Date: 02/04/2025 12:51 ET EKG Reviewed date:09/16/2025 09:19:30 AM Interpretation: Performing Lab: Notes/Report: ECGDiastolicBP 68 ECGHr 73 ECGPRInterval 158 ECGPWaveAxis 34 ECGQRSDuration 78 ECGQrsWaveAxis 33 ECGQTcInterval 404 ECGQTInterval 382 ECGSystolicBP 116 ECGTWaveAxis 31 RR_DiastolicBP 0 RR_MaxRRInterval 0 RR_MeanHR 0 RR_MeanRRInterval 0 RR_MinRRInterval 0 RR_NumBeats 0 RR_NumNormalBeats 0 RR_SystolicBP 0 XR WRIST 3+ VIEWS RIGHT Reviewed date:08/13/2025 08:18:07 AM Interpretation: Performing Lab: Notes/Report: Note See Note [facility], a member of [employer] Patient Name: MARÍA PHILLIPS Date of : 1965 Reason for Exam: right wrist pain Exam Date: 08/12/2025 [id number] EST Report Status: Final Ordering Provider: DUC [...] performed at [facility], [facility] [place] [address] Krystina Austin MD, PhD - Soft Boarder THYROID STIMULATING HORMONE WITH REFLEX TO FREE T4 AND FREE T3 Reviewed date:07/24/2025 02:40:06 PM Interpretation: Performing Lab: Notes/Report: TSH 1.20 0.40-4.00 mcIU/mL TRIIODOTHYRONINE FREE Reviewed date:07/24/2025 02:40:06 PM Interpretation: Performing Lab: Notes/Report: T3, Free 316 230-420 pcg/dL THYROXINE FREE Reviewed date:07/24/2025 02:40:06 PM Interpretation: Performing Lab: Notes/Report: Free T4 1.16 0.70-1.80 ng/dL HEMOGLOBIN A1C Reviewed date:05/06/2025 03:59:06 PM Interpretation: [...] 07:44:34 AM Interpretation: Performing Lab: Notes/Report: Specific [place] Urine 1.010 1.003-1.030 pH, Urine 8.0 5.0-8.0 [...] Immature Granulocytes Absolute 0.04 0.00-0.03 K/mcL H CREATINE KINASE Reviewed date:03/24/2025 07:44:57 AM Interpretation: Performing Lab: Notes/Report: Total CK 87 22-269 unit/L XR WRIST 3+ VIEWS RIGHT Reviewed date:09/16/2025 09:19:30 AM Interpretation: Performing Lab: Notes/Report: See Note [facility], a member of [facility] AP, lateral, oblique of the right wrist [...] with flattening and sclerosis of the lunate TISSUE EXAM Reviewed date:07/20/2025 07:42:46 PM Interpretation: [...] No epithelial cells, and No organisms noted CULTURE ANAEROBIC WITH GRAM STAIN Reviewed date:07/24/2025 [...] warneri Gram Stain Result Refer to Aerobic culture for gram stain results. Culture, Anaerobic No Growth of Anaerobes. Culture, Anaerobic STAPHYLOCOCCUS WARNERI A Culture, Anaerobic STREPTOCOCCUS VIRIDA NS GROUP A Culture, Anaerobic BACILLUS SPECIES, NO T ANTHRACIS A Report Susceptibility Report Iron and TIBC-083844 Reviewed date:07/15/2025 03:58:09 PM Interpretation: Performing Lab:[employer] [address], Phone - [phone], Director - [facility] Notes/Report: Iron Bind.Cap.(TIBC) 371 250-450 ug/dL UIBC 318 131-425 ug/dL Iron 53 27-159 ug/dL Iron Saturation 14 15-55 % L Ferritin-013861 Reviewed date:07/15/2025 08:25:45 AM Interpretation: Performing Lab:[employer] [address], Phone - [phone], [facility] Notes/Report: Ferritin 85 15-150 ng/mL CBC With Differential/Platel et-092822 Reviewed date:07/15/2025 08:25:37 AM Interpretation: Performing Lab:[employer] [place], Phone - [phone], Director - MDIggy Notes/Report: WBC 7.7 3.4-10.8 x10E3/uL RBC 3.91 [...] % Immature Grans (Abs) 0.0 0.0-0.1 x10E3/uL Comp. Metabolic Panel (14)-3 Reviewed date:07/15/2025 08:25:45 AM Interpretation: Performing Lab:[facility] [place], [address] [facility], Phone - [phone], Director - Elsa Notes/Report: Glucose 75 70-99 [...] 0-40 IU/L ALT (SGPT) 22 0-32 IU/L TSH Rfx on Abnormal to Free T4-019697 Reviewed date:07/15/2025 03:58:09 PM Interpretation: Performing Lab:[facility], [address] [place] [address], [place], Phone - [phone], Director - Elsa Notes/Report: TSH 0.436 0.450-4.500 uIU/mL L T4,Free (Direct) 1.14 0.82-1.77 ng/dL CBC WITH AUTO DIFFERENTIAL Reviewed date:10/28/2024 04:25:45 [...] Immature Granulocytes Absolute 0.05 0.00-0.03 K/mcL H LIPID PANEL WITH REFLEX TO D IRECT [...] mcg/dL Iron Saturation 10 15-50 % L FERRITIN Reviewed date:10/28/2024 04:25:26 PM Interpretation: Performing Lab: Notes/Report: Ferritin 28 8-252 ng/mL SEDIMENTATION RATE Reviewed date:10/28/2024 04:25:48 PM Interpretation: Performing Lab: Notes/Report: Sed Rate 4 0-30 mm/hr RHEUMATOID FACTOR Reviewed date:10/28/2024 04:25:29 PM Interpretation: Performing Lab: Notes/Report: Rheumatoid Factor 152.0 <15.0 I Unit/mL H C REACTIVE PROTEIN, HIGH SEN SITIVITY Reviewed [...] Interpretation: Performing Lab: Notes/Report: Note See Note [facility], a member of [employer] Patient Name: MARÍA PHILLIPS Date of : 1965 Reason for Exam: OTHER Exam Date: 11/18/2024 [id number] EST Report Status: Final Ordering Provider: IKER [...] to the prior neck CTA. Telerad PA ([id number]) -------- FINAL REPOR T -------- Dictated By: Dayami Walker i Dictated Date: 11/19/2024 13:40 ET Assigned Physician: Dayami Diehl Reviewed and Electronically Signed By: Dayami Diehl Signed Date: 025 13:45 ET Workstation ID: [id number] Transcribed By: Self Edit Transcribed Date: 11/19/2024 [...] sample collected in 7-14 days is recommended. Complement C4, Serum-319139 Reviewed date:02/11/2025 07:43:19 AM Interpretation: Performing Lab:[facility], [address] [place] [address], [place], Phone - [phone], [facility] Notes/Report: and Drug Administration. by [facility]. It has not been cleared or approved by the Food was developed and its performance characteristics determined Test(s) 868913-Mrco-Rh-7 Ab (RDL) Complement C4, Serum 18 12-38 mg/dL CBC With Differential/Platel et-144426 Reviewed date:02/11/2025 07:43:32 AM Interpretation: Performing Lab:[facility] [place], [address] [place] [address], Phone - [phone], [facility] Notes/Report: Test(s) 156796-Pvcn-Qg-6 Ab (RDL) was developed and its performance characteristics determined by [facility]. It has not been cleared or approved [...] % Immature Grans (Abs) 0.0 0.0-0.1 x10E3/uL Sedimentation Rate-[facility] n-439568 Reviewed date:02/11/2025 07:42:43 AM Interpretation: Performing Lab:[facility] [place], [address] [place] [address], [place], Phone - [phone], Director - Elsa Notes/Report: Test(s) 075524-Ecnk-Va-1 Ab (RDL) was developed and its performance characteristics determined by [facility]. It has not been cleared or approved by the Food and Drug Administration. Sedimentation Rate-Westergren 14 0-40 mm/hr Maryan Barnett CMP14 Default A hand-written panel/profile was received from your office. In accordance with the [facility] Ambiguous Test Code Policy dated May 2003, we have completed your order by using the closest currently or formerly recognized AMA panel. We have assigned Comprehensive Metabolic Panel (14), Test Code #573409 to this request. If this is not the testing you wished to receive on this specimen, please contact the [employer] Client Inquiry/Technical Services Department to clarify the test order. We appreciate your business. Complement C3, Serum-118489 Reviewed date:02/11/2025 07:43:16 AM Interpretation: Performing Lab:[facility], Phone - [phone], Director - [facility] Notes/Report: Test(s) 549406-Pcpv-Ot-2 Ab (RDL) was developed and its performance characteristics determined by [facility]. It has not been cleared or approved by the Food and Drug Administration. Complement C3, Serum 119 82-167 mg/dL Anti-dsDNA Antibodies-738367 Reviewed date:02/11/2025 07:43:13 AM Interpretation: Performing Lab:[facility], Phone - [phone], Director - [facility] Notes/Report: Test(s) 357710-Rvex-Fs-0 Ab (RDL) was developed and its performance characteristics determined by [facility]. It has not been cleared or approved by the Food and Drug Administration. Anti-DNA (DS) Ab Qn 1 0-9 IU/mL Negative <5 Equivocal 5 - 9 Positive >9 C-Reactive Protein, Cardiac- 051038 Reviewed date:02/11/2025 07:43:09 AM Interpretation: Performing Lab:[facility] [address], Phone - [phone], Director - [facility] Notes/Report: Test(s) 049351-Ikwz-Aw-3 Ab (RDL) was developed and its performance characteristics determined by [facility]. It has not been cleared or approved by the Food and Drug Administration. C-Reactive Protein, Cardiac 1.34 0.00-3.00 mg/L Relative Risk for Future Cardiovascular Event Low <1.00 Average 1.00 - 3.00 High >3.00 Creatine Kinase (CK), MB-120 816 Reviewed date:02/11/2025 07:43:06 AM Interpretation: Performing Lab:[facility] [address], Phone - [phone], Director - [facility] Notes/Report: Test(s) 910670-Acfq-Zq-8 Ab (RDL) was developed and its performance characteristics determined by [facility]. It has not been cleared or approved by the Food and Drug Administration. Creatine Kinase (CK), MB 1.4 0.0-5.3 ng/mL Duik-Cu-5-133197 Reviewed date:02/11/2025 07:43:02 AM Interpretation: Performing Lab:[facility] [address], [place], Phone - [phone], Director - alton Notes/Report: Test(s) 026694-Xhuj-Bv-4 Ab (RDL) was developed and its performance characteristics determined by [facility]. It has not been cleared or approved by the Food and Drug Administration. Anti-Lakisha-1 <0.2 0.0-0.9 AI Comp. Metabolic Panel (14)-3 32511 Reviewed date:02/11/2025 07:43:25 AM Interpretation: Performing Lab:[facility] [address], Phone - [phone], Director - Elsa Notes/Report: Test(s) 846159-Mrdp-Iy-7 Ab (RDL) was developed and its performance [...] 0-40 IU/L ALT (SGPT) 13 0-32 IU/L Anti-Mi-2 Ab (RDL)-773909 Reviewed date:02/11/2025 07:42:59 AM Interpretation: Performing Lab:[facility] [place], [address] [place] [address], Phone - [phone], Director - [facility] Notes/Report: Test(s) 205771-Oxes-Gw-0 Ab (RDL) was developed and its performance characteristics determined by [facility]. It has not been cleared or approved by the Food and Drug Administration. Anti-Mi-2 Ab (RDL) Negative Negative Anti-Ro (SS-A) Ab (RDL)-5200 10 Reviewed date:02/11/2025 07:42:55 AM Interpretation: Performing Lab:[facility] [place], [address] [place] [address], [place], Phone - [phone], Director - [facility] Notes/Report: Test(s) 760970-Rzsx-Oo-2 Ab (RDL) was developed and its performance characteristics determined by [facility]. It has not been cleared or approved by the Food and Drug Administration. Anti-Ro (SS-A) Ab (RDL) <20 <20 Units Negative: <20 Weak Positive: 20-39 Moderate Positive: 40-80 Strong Positive: >80 Anti-Sm Ab (RDL)-180970 Reviewed date:02/11/2025 07:42:50 AM Interpretation: Performing Lab:[facility] [place], [address] [place] [address], [place], Phone - [phone], Director - [facility] Notes/Report: Test(s) 152679-Menv-Iz-9 Ab (RDL) was developed and its performance characteristics determined by [facility]. It has not been cleared or approved by the Food and Drug Administration. Anti-Sm Ab (RDL) <20 <20 Units Negative: <20 Weak Positive: 20-39 Moderate Positive: 40-80 Strong Positive: >80 Anti-La (SS-B) Ab (RDL)-5203 20 Reviewed date:02/11/2025 07:42:47 AM Interpretation: Performing Lab:[facility], [address], [place], Phone - [phone], Director - Elsa Notes/Report: Test(s) 075738-Bewz-Xd-2 Ab (RDL) was developed and its performance characteristics determined by [facility]. It has not been cleared or approved by the Food and Drug Administration. Anti-La (SS-B) Ab (RDL) <20 <20 Units Negative: <20 Weak Positive: 20-39 Moderate Positive: 40-80 Strong Positive: >80 MG MAMMO DIGITAL SCREENING W HERACLIO BILAT Reviewed date:02/06/2025 11:57:46 AM Interpretation: Performing Lab: Notes/Report: Note See Note [facility], a member of [employer] Patient Name: MARÍA PHILLIPS Date of : 1965 Reason for Exam: SCREENING Exam Date: 02/05/2025 [id number] EST Report Status: Final Ordering Provider: IKER [...] is recommended in 1 year. Mammo Location: [facility], [address] [place] [address], [address], . -------- FINAL REPOR T -------- Dictated By: Stefani Zamora Dictated Date: 02/06/2025 09:43 ET Assigned Physician: Stefani Zamora Reviewed and Electronically Signed By: Stefani Zamora Signed Date: 025 09:45 ET Workstation ID: [id number] Transcribed By: Self Edit Transcribed Date: 02/06/2025 09:43 ET US HEAD NECK SOFT TISSUE Reviewed date:02/10/2025 05:04:59 PM Interpretation: Performing Lab: Notes/Report: Note See Note [facility], a member of [facility] Patient Name: MARÍA PHILLIPS Date of : 1965 Reason for Exam: ENLARGED LYMPHNODE Exam Date: 02/08/2025 [id number] EST Report Status: Final Ordering Provider: CHINO [...] Electronically Signed By: Alexey Morton Signed Date: 15:55 ET Workstation ID: [id number] Transcribed By: Self Edit Transcribed Date: 02/08/2025 15:[address] CHEST WO CONTRAST Reviewed date:06/03/2025 12:20:20 PM Interpretation: Performing Lab: Notes/Report: Note See Note [facility], a member of [facility] Patient Name: MARÍA PHILLIPS Date of : 1965 Reason for Exam: PULMONARY NODULE Exam Date: 05/28/2025 [id number] EST Report Status: Final Ordering Provider: IKER ROBLERO PCP: IKER ROBLERO History: Pulmonary nodule follow-up. Comparison: 12/05/24 Technique: Helical volumetric imaging of the thorax was performed without IV contrast. DLP: 279.09 mGy/cm [employer] [place] Iterative reconstruction technique Findings: The trachea and [...] 2. No developing thoracic lymphadenopathy. Telerad [place] ([id number]) -------- FINAL REPOR T -------- Dictated By: Dayami Walker i Dictated Date: 06/02/2025 09:00 ET Assigned Physician: Dayami Diehl Reviewed and Electronically Signed By: Dayami Diehl Signed Date: 025 09:13 ET Workstation ID: [id number] Transcribed By: Self Edit Transcribed Date: 06/02/2025 09:00 ET TISSUE EXAM Reviewed date:06/08/2025 11:10:45 PM Interpretation: [...] 10% NB formalin fixed and paraffin embedded. THYROID STIMULATING IMMUNOGL OBULIN Reviewed date:07/29/2025 07:58:42 [...] 0.11 to 0.39 IU/L. Test performed at [facility], [facility] [place] [address] [place] [address] Krystina Austin MD, PhD - Soft Boarder XR ESOPHAGRAM Reviewed date:01/01/2025 09:27:26 AM Interpretation: Performing Lab: Notes/Report: Note See Note [facility], a member of [employer] Patient Name: MARÍA PHILLIPS Date of : 1965 Reason for Exam: DYSPHAGIA Exam Date: 12/26/2024 [id number] EST Report Status: Final Ordering Provider: BARBARA MORRISSEY PCP: IKER ROBLERO FINDINGS: Double contrast esophagram performed. COMPARISON: Esophagr am March 04, 2022 HISTORY: Patient is a 59-year-old female with history of globus sensation. Epigastric pain. 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 Reason For Referral Reason [facility] Diagnosis 1 Shoulder pain, unspe cified chronicity, unspecified laterality (M25.519) Referral Organization [facility] [address] Referring Provider First Name IKER Referring Provider Last Name FULLERTON Referring Provider Speciality Preventive Medicine Referred Provider Specialty Orthopedic S urgery General Notes Letitia Cox 025 10:47:57 AM > Referral faxed over to [facility] for Bilateral shoulder pain P. [phone] Referral Priority Routine Reason [facility]; sleep study; loud snoring Diagnosis 1 Loud snoring (R06.83 ) Referral Organization [facility] [address] Referring Provider First Name IKER Referring Provider Last Name FULLERTON Referring Provider Speciality Preventive Medicine Referred Provider Specialty Sleep Medici ne General Notes [address] [facility] [address] (p) [phone], (f) [phone] Clinical Notes Maryann Cox 02:10:39 PM > I called the office and they informed me that they had reached out to the patient and are just waiting for a callback to schedule an appt Referral Priority Routine Reason pain management : ri ght rib pain Diagnosis 1 Rib pain on right si de (R07.81) Referral Organization [facility] [address] Referring Provider First Name IKER Referring Provider Last Name FULLERTON Referring Provider Speciality Preventive Medicine Referred Provider Specialty Pain Medicin e Clinical Notes Zoila Narayanan 04/25 09:57:57 AM > [facility], Address: [address] [place] [address], , Fax number: , Maryann Cox 06/17/2025 02:17:36 PM > The patient was scheduled for 06/05 but she no showed and has not rescheduled yet Referral Priority Routine Reason [facility]; easy bruising Diagnosis 1 Easy bruising (R23.3 ) Referral Organization [facility] [address] Referring Provider First Name IKER Referring Provider Last Name FULLERTON Referring Provider Speciality Preventive Medicine Referred Provider Specialty Dermatology General Notes [address], (p) [phone], (f) [phone] Clinical Notes Caren Narayanan 08:43:03 AM > referral faxed with notes Referral Priority Routine Reason Dr. Hoffman Diagnosis 1 Pulmonary nodule (R9 1.1) Diagnosis 2 Centrilobular emphys christine (J43.2) Referral Organization [facility] [address] Referring Provider First Name IKER Referring Provider Last Name FULLERTON Referring Provider Speciality Preventive Medicine Referred Provider Specialty Pulmonology General Notes XAVIER VILLANUEVA 06/09 08:34:07 AM > Referral faxed, Dr Hoffman - Pulmonology and Sleep Medicine, [address] [place] [address], , Clinical Notes Kenny Maryann 10/2025 02:17:04 PM > The patient was scheduled for 06/05 but she no showed and has not rescheduled yet Referral Priority Routine Reason [facility] Diagnosis 1 Chronic pain syndrom e (G89.4) Diagnosis 2 Cervical pain (M54.2 ) Referral Organization [facility] [address] Referring Provider First Name IKER Referring Provider Last Name FULLERTON [facility] Provider [facility] Referred Provider Specialty Orthopedic S urgery General Notes XAVEIR VILLANUEVA 06/26 08:13:11 AM > Referral has been faxed, [facility], [address] [place] [id number], , Clinical Notes Maryann Cox 02:25:30 PM > I called the office, and they informed me they had reached out to the patient multiple times with no response. I then spoke with the patient, who stated she was not aware a referral had been sent. She said she will call the office back Referral Priority Stat Reason Spine Surgery - [facility] Diagnosis 1 Lumbar back pain (M5 4.50) Diagnosis 2 Chronic lumbar radic ulopathy (M54.16) Referral Organization [facility] [address] Referring Provider First Name IKER Referring Provider Last Name FULLERTON Referring Provider [facility] Preventive Medicine Referred Provider Specialty Spinal Cord Injury Medicine General Notes XAVIER VILLANUEVA 07/08 03:54:08 PM > referral has been initiated & faxed, [facility], [address], [address], [place], , Most recent MRI was done at [facility] 01/14/25 Clinical Notes Maryann Cox 01/2025 02:17:15 PM > I called [facility], and they are requesting an [...] Start Date End Date Status Polymyxin B-Trimethoprim 77615-1.1 UNIT/ML Solution 1 drop into affected eye [...] Status W/U Status Risk Notes Problem Hyperkalemia (46845666) Hyperkalemia (E87.5) Active confirmed Problem Chronic pain syndrome (709839330) Chronic pain syndrome (G89.4) Active confirmed Problem Centrilobular emphysema (94245127) Centrilobular emphysema (J43.2) Active confirmed Problem Pulmonary nodule (852829705) Pulmonary nodule (R91.1) Active confirmed Problem Breathing painful (81641381) Rib pain on right side (R07.81) Active confirmed Problem Tremor (49504303) Tremor (R25.1) Active confirm ed Problem Chronic fatigue syndrome (85631453) Chronic fatigue (R53.82) Active confirmed Problem Paresthesia (finding) (19565725) Paresthesias (R20.2) Active confirmed Problem Lumbar radiculopathy (659849316) Chronic lumbar radiculopathy (M54.16) Active confirmed Problem Cervical pain (76382803) Cervical pain (M54.2) Active confirmed Problem Mixed anxiety and depressive disorder (040526462) Depression with anxiety (F41.8) Active confirmed Problem 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 Problem Inactive tuberculosis (finding) (56982610) History of latent tuberculosis (Z86.15) Active confirmed Problem Rheumatoid arthritis (00649348) Rheumatoid arthritis involving multiple sites, unspecified whether rheumatoid factor present (M06.9) Active confirmed Problem Rheumatoid arthritis (26072108) Rheumatoid arthritis involving multiple sites with positive rheumatoid factor (M05.79) Active confirmed Problem Lymphadenopathy (74517216) Lymphadenopathy, axillary (R59.0) Active confirmed Problem Cervical spondylosis (657761546) Cervical spondylosis (M47.812) Active confirmed Problem General weakness (78334532) Generalized weakness (R53.1) Active confirmed Problem 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 Vital Signs Heart Rate 73 /min 09/04/2025 Oximetry 98 % 09/04/2025 Blood pressure diastolic 89 mm Hg 09/04/2025 Height 61 in 09/04/2025 Blood pressure systolic 118 mm Hg 09/04/2025 Weight 167.5 lbs 09/04/2025 BMI 31.65 kg/m2 09/04/2025 Encounters Encounter Location Date Provider Diagnosis [facility] [address] [place] [address] 10/28/2024 IKER ANNIKA Rheumatoid arthritis involving multiple sites, unspecified whether rheumatoid factor present M06.9 ; Tremor R25.1 ; Slipped rib syndrome M94.0 ; History of latent tuberculosis Z86.15 ; Depression with anxiety F41.8 and Rock's disease E06.3 [facility] [address] [address] 11/18/2024 IKER ANNIKA Tremor R25.1 ; Cervi veronica spondylosis M47.812 ; Rock's disease E06.3 ; Pain in right arm M79.601 ; Pain in left arm M79.602 ; History of recent fall Z91.81 ; Rheumatoid arthritis involving multiple sites with positive rheumatoid factor M05.79 ; Slipped rib syndrome M94.0 and Depression with anxiety F41.8 [facility] [address] [address] 01/22/2025 CHINO BIRKS Neck pain on right s angela M54.2 ; Rheumatoid arthritis involving multiple sites with positive rheumatoid factor M05.79 ; Slipped rib syndrome M94.0 ; Rock's disease E06.3 and Depression with anxiety F41.8 [facility] [address] [address] 02/03/2025 CHINO BIRKS Lymphadenopathy, axillary R59.0 ; Rheumatoid arthritis involving multiple sites, unspecified whether rheumatoid factor present M06.9 ; Rock's disease E06.3 ; Slipped rib syndrome M94.0 ; Anxiety, generalized F41.1 and Tendon calcification M65.80 [facility] [address] [address] 03/05/2025 IKER ROBLERO Rib pain on right si de R07.81 ; Annual physical exam Z00.00 ; Chronic fatigue R53.82 ; Hyperkalemia E87.5 ; Slipped rib syndrome M94.0 ; Depression with anxiety F41.8 and Rheumatoid arthritis involving multiple sites with positive rheumatoid factor M05.79 [facility] [address] [address] 03/21/2025 IKER ROBLERO Heart palpitations R00.2 ; Weakness R53.1 and Dyspnea on exertion R06.09 [facility] [address] [address] 04/23/2025 IKER ROBLERO Depression with anxi ety F41.8 ; Heavy alcohol use F10.90 ; Chronic pain syndrome G89.4 ; Slipped rib syndrome M94.0 ; Rheumatoid arthritis involving multiple sites with positive rheumatoid factor M05.79 ; Pulmonary nodule R91.1 ; History of latent tuberculosis Z86.15 and Loud snoring R06.83 [facility] [address] [address] 05/05/2025 IKER ROBLERO Spontaneous ecchymos es R23.3 ; Skin tear of left upper extremity S41.112A ; Irregular bowel habits R19.8 ; Depression with anxiety F41.8 ; Chronic pain syndrome G89.4 and Rheumatoid arthritis involving multiple sites with positive rheumatoid factor M05.79 [facility] [address] [address] 06/18/2025 IKER ROBLERO Chronic pain syndrom e G89.4 ; Cervical pain M54.2 and Recurrent low back pain M54.50 [facility] [address] [address] 09/04/2025 IKER ROBLERO Redness of left eye H57.89 [facility] [address] [address] 10/29/2024 IKER ROBLERO [facility] [address] [address] 11/04/2024 IKER LEDESMAHAM [facility] [address] [address] 11/07/2024 IKER LEDESMAHAM [facility] [address] [address] 11/19/2024 IKER LEDESMAHAM [facility] [address] [address] 12/03/2024 IKER ROBLERO [facility] [address] [address] 12/13/2024 IKER ROBLERO [facility] [address] [address] 12/13/2024 IKER ROBLERO Generalized weakness R53.1 and Paresthesias R20.2 [facility] [address] [facility] [address] [place] [address] 12/16/2024 IKER FULLERTON [facility] [address] [place] [address] 12/26/2024 IKER FULLERTON [facility] [address] [place] [address] 12/31/2024 IKER FULLERTON [facility] [address] [place] [address] 01/02/2025 [address]KER FULLERTON [facility] [address] [place] [address] 01/07/2025 IKER FULLERTON [facility] [address] [place] [address] 01/21/2025 IKER FULLERTON [facility] [address] [place] [address] 01/24/2025 IKER FULLERTON [facility] [address] [place] [address] 02/03/2025 IKER FULLERTON [facility] [address] [place] [address] 02/03/2025 IKER FULLERTON [facility] [address] [place] [address] 02/10/2025 IKER FULLERTON [facility] [address] [place] [address] 03/05/2025 IKER FULLERTON Chronic fatigue R53. 82 ; Elevated lipids E78.5 ; Anemia due to vitamin B12 deficiency, unspecified B12 deficiency type D51.9 and Vitamin D deficiency E55.9 [facility] [address] [place] [address] 03/05/2025 IKER FULLERTON [facility] [address] [place] [address] 03/05/2025 IKER FULLERTON [facility] [address] [place] [address] 03/05/2025 IKER FULLERTON [facility] [address] [place] [address] 03/21/2025 IKER FULLERTON [facility] [address] [place] [address] 03/24/2025 IKER FULLERTON [facility] [address] [place] [address] 04/22/2025 IKER FULLERTON [facility] [address] [place] [address] 04/25/2025 IKER FULLERTON [facility] [address] [place] [address] 05/01/2025 IKER FULLERTON [facility] [address] [place] [address] 05/05/2025 IKER FULLERTON [facility] [address] [place] [address] 05/06/2025 IKER FULLERTON [facility] [address] [place] 05/13/2025 IKER FULLERTON [facility] [address] [place] [address] 05/13/2025 IKER FULLERTON [facility] [address] [place] [address] 06/03/2025 IKER FULLERTON [facility] [address] [place] [address] 06/18/2025 IKER FULLERTON [facility] [address] [place] [address] 06/19/2025 IKER FULLERTON Cervical pain M54.2 ; Cervical spondylosis M47.812 and Chronic pain syndrome G89.[address] [address] [place] [address] 06/25/2025 IKER FULLERTON [facility] [address] [place] [address] 07/08/2025 IKER FULLERTON [facility] [address] [place] [address] 07/08/2025 IKER FULLERTON [facility] [address] [place] [address] 07/09/2025 IKER FULLERTON [facility] [address] [place] [address] 07/15/2025 IKER FULLERTON Rock's disease E06.3 [facility] [address] [place] [address] 08/14/2025 IKER FULLERTON [facility] [address] [place] [address] 09/04/2025 KIER FULLERTON [facility] [address] [place] [address] 12/09/2024 IKER FULLERTON [facility] [address] [place] [address] 12/13/2024 IKER FULLERTON [facility] [address] [place] [address] 12/14/2024 IKER FULLERTON [facility] [address] [place] [address] 12/14/2024 IKER FULLERTON [facility] [address] [place] [address] 12/15/2024 IKER FULLERTON [facility] [address] [place] [address] 12/18/2024 IKER FULLERTON [facility] [address] [place] [address] 01/01/2025 IKER FULLERTON [facility] [address] [place] [address] 01/21/2025 IKER FULLERTON [facility] [address] [place] [address] 01/27/2025 [facility] Breast cancer screen ing by mammogram Z12.31 [facility] [address] [place] [address] 03/21/2025 IKER FULLERTON [facility] [address] [place] [address] 04/30/2025 IKER FULLERTON [facility] [address] [place] [address] 05/01/2025 IKER FULLERTON [facility] [address] [place] [address] 05/01/2025 [facility] [address] [place] [address] 06/06/2025 IKER FULLERTON [facility] [address] [place] [address] 06/09/2025 [facility] [address] [place] [address] 06/14/2025 IKER FULLERTON [facility] [address] [place] [address] 06/20/2025 [facility] [address] [address] 06/23/2025 [facility] [address] [address] 06/30/2025 [facility] [address] [address] 07/12/2025 [facility] Adult general medica l exam Z00.00 and Screening for thyroid disorder Z13.29 [facility] [address] [address] 07/15/2025 [facility] [address] [address] 07/16/2025 [facility] [address] [address] 09/04/2025 IKER FULLERTON Assessments Encounter Date Diagnosis (ICD Code) Assessment [...] Patient reports history of RA. Follows with market analysis director Dr. Clark out of [place]. Has been treated previously with Humira, Enbrel, [...] was diagnosed by Dr. Dubon out of [place], [place]. Taking methocarbamol 750 mg 3 times [...] reviewed. Dictation completed with the use of [employer] voice recognition software, prone to medical misidentifications [...] Patient reports history of RA. Follows with market analysis director Dr. Clark out of [place]. Has been treated previously with Humira, Enbrel, [...] was diagnosed by Dr. Dubon out of [place], [place]. Taking methocarbamol 750 mg 3 times [...] reviewed. Dictation completed with the use of [employer] voice recognition software, prone to medical misidentifications [...] for 11/20/2024. #Recent fall: Patient seen at [facility] ED 11/02/2024 s/p fall at work. Denied [...] diffuse joint pain and fatigue. Follows with market analysis director Dr. Clark out of [place], records requested and not yet available for my review. 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 States this was diagnosed by Dr. Dubon out of [place], [place]. Taking methocarbamol 750 mg 3 times [...] reviewed. Dictation completed with the use of [employer] voice recognition software, prone to medical misidentifications [...] for 11/20/2024. #Recent fall: Patient seen at [facility] ED 11/02/2024 s/p fall at work. Denied [...] diffuse joint pain and fatigue. Follows with market analysis director Dr. Clark out of [place], records requested and not yet available for my review. 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 States this was diagnosed by Dr. Dubon out of [place], [place]. Taking methocarbamol 750 mg 3 times [...] reviewed. Dictation completed with the use of [employer] voice recognition software, prone to medical misidentifications [...] was diagnosed by Dr. Dubon out of [place]. Taking methocarbamol 750 mg 3 times [...] Dictation was accomplished with the use of [employer] voice recognition software, which is prone to [...] was diagnosed by Dr. Dubon out of [place]. Taking methocarbamol 750 mg 3 times [...] Dictation was accomplished with the use of [employer] voice recognition software, which is prone to [...] was diagnosed by Dr. Dubon out of [place]. Taking methocarbamol 750 mg 3 times [...] Dictation was accomplished with the use of [employer] voice recognition software, which is prone to [...] was diagnosed by Dr. Dubon out of [place]. Taking methocarbamol 750 mg 3 times [...] Dictation was accomplished with the use of [employer] voice recognition software, which is prone to [...] rib syndrome: Follows with Dr. Dubon with [facility]. Underwent repair 12/17/2024. #Ventral hernia: Surgical [...] arthritis: + Rheumatoid factor (152). Follows with market analysis director Dr. Joshua Kaplan out of [place]. Follow-up labs including CAMILO, ESR/CRP, and comprehensive [...] Follows with psychiatric provider Clarice Lara with [facility]. Taking clonazepam 0.5 mg once daily with [...] dysfunction. #Hyperkalemia: Patient reports she was at [facility] ED recently at which time her [...] reviewed. Dictation completed with the use of [employer] voice recognition software, prone to medical misidentifications [...] rib syndrome: Follows with Dr. Dubon with [facility]. Underwent repair 12/17/2024. #Ventral hernia: Surgical [...] arthritis: + Rheumatoid factor (152). Follows with market analysis director Dr. Joshua Kaplan out of [place]. Follow-up labs including CAMILO, ESR/CRP, and comprehensive [...] Follows with psychiatric provider Clarice Lara with [facility]. Taking clonazepam 0.5 mg once daily with [...] dysfunction. #Hyperkalemia: Patient reports she was at [facility] ED recently at which time her [...] reviewed. Dictation completed with the use of [employer] voice recognition software, prone to medical misidentifications [...] reviewed. Dictation completed with the use of [employer] voice recognition software, prone to medical misidentifications [...] reviewed. Dictation completed with the use of [employer] voice recognition software, prone to medical misidentifications [...] ER follow-up hospital follow-up. María presented to [facility] ED 04/19/2025 with chief complaint of [...] taking any pain medication. Previously followed with toy painter Dr. Trivedi who provided steroid injections. [...] with added opioid use. WIll refer to toy painter with goal of establishing safe pain management regimen. #RA: Follows with Joshua Kaplan MD out of [place]. Discussed possibility of chronic pain being related [...] reviewed. Dictation completed with the use of [employer] voice recognition software, prone to medical misidentifications [...] ER follow-up hospital follow-up. María presented to [facility] ED 04/19/2025 with chief complaint of [...] taking any pain medication. Previously followed with toy painter Dr. Trivedi who provided steroid injections. [...] with added opioid use. WIll refer to toy painter with goal of establishing safe pain management regimen. #RA: Follows with Joshua Kaplan MD out of [place]. Discussed possibility of chronic pain being related [...] reviewed. Dictation completed with the use of [employer] voice recognition software, prone to medical misidentifications [...] Patient requesting urgent colonoscopy per recommendation of [facility] surgeon Jewel Dubon. On review of [...] gabapentin TID without symptom improvement. Follows with toy painter Dr. Trivedi. Historically the patient has [...] reviewed. Dictation completed with the use of [employer] voice recognition software, prone to medical misidentifications [...] Patient requesting urgent colonoscopy per recommendation of [facility] surgeon Jewel Dubon. On review of [...] gabapentin TID without symptom improvement. Follows with toy painter Dr. Trivedi. Historically the patient has [...] reviewed. Dictation completed with the use of [employer] voice recognition software, prone to medical misidentifications [...] TID without significant symptom improvement. Follows with toy painter Dr. Trivedi, orthopedic provider Nichelle Carrillo [...] reviewed. Dictation completed with the use of [employer] voice recognition software, prone to medical misidentifications [...] TID without significant symptom improvement. Follows with toy painter Dr. Trivedi, orthopedic provider Nichelle Carrillo [...] reviewed. Dictation completed with the use of [employer] voice recognition software, prone to medical misidentifications [...] reviewed. Dictation completed with the use of [employer] voice recognition software, prone to medical misidentifications [...] TID without significant symptom improvement. Follows with toy painter Dr. Trivedi, orthopedic provider Nichelle Carrillo [...] Patient requesting urgent colonoscopy per recommendation of [facility] surgeon Jewel Dubon. On review of [...] gabapentin TID without symptom improvement. Follows with toy painter Dr. Trivedi. Historically the patient has [...] reviewed. Dictation completed with the use of [employer] voice recognition software, prone to medical misidentifications and grammatical errors. All errors are unintentional. Although the practitioner does try to identify and correct errors, some may be present. Please do not hesitate to contact the practitioner for clarification. Total time was 60 minutes spent with >50% on coordination of care and patient education. 03/21/2025 Dyspnea on exertion (ICD-10 - R06.09) Maraí is a 59-year-old female with a [...] reviewed. Dictation completed with the use of [employer] voice recognition software, prone to medical misidentifications [...] ER follow-up hospital follow-up. María presented to [facility] ED 04/19/2025 with chief complaint of [...] taking any pain medication. Previously followed with toy painter Dr. Trivedi who provided steroid injections. [...] with added opioid use. WIll refer to toy painter with goal of establishing safe pain management regimen. #RA: Follows with Joshua Kaplan MD out of [place]. Discussed possibility of chronic pain being related [...] reviewed. Dictation completed with the use of [employer] voice recognition software, prone to medical misidentifications [...] rib syndrome: Follows with Dr. Dubon with [facility]. Underwent repair 12/17/2024. #Ventral hernia: Surgical [...] arthritis: + Rheumatoid factor (152). Follows with market analysis director Dr. Joshua Kaplan out of [place]. Follow-up labs including CAMILO, ESR/CRP, and comprehensive [...] Follows with psychiatric provider Clarice Lara with [facility]. Taking clonazepam 0.5 mg once daily with [...] dysfunction. #Hyperkalemia: Patient reports she was at [facility] ED recently at which time her [...] reviewed. Dictation completed with the use of [employer] voice recognition software, prone to medical misidentifications [...] was diagnosed by Dr. Dubon out of [place], [place]. Taking methocarbamol 750 mg 3 times [...] Dictation was accomplished with the use of [employer] voice recognition software, which is prone to [...] was diagnosed by Dr. Dubon out of [place], [place]. Taking methocarbamol 750 mg 3 times daily and gabapentin 100 mg 3 times daily with moderate relief of discomfort. # Anxiety: Stable mood in office. Follows with psychiatric nurse practitioner Cassidy Qurioz as well as therapist. Continue lorazepam 1 [...] Dictation was accomplished with the use of [employer] voice recognition software, which is prone to [...] for 11/20/2024. #Recent fall: Patient seen at [facility] ED 11/02/2024 s/p fall at work. Denied [...] diffuse joint pain and fatigue. Follows with market analysis director Dr. Clark out of [place], records requested and not yet available for my review. 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 States this was diagnosed by Dr. Dubon out of [place], [place]. Taking methocarbamol 750 mg 3 times [...] reviewed. Dictation completed with the use of [employer] voice recognition software, prone to medical misidentifications [...] Patient reports history of RA. Follows with market analysis director Dr. Clark out of [place]. Has been treated previously with Humira, Enbrel, [...] was diagnosed by Dr. Dubon out of [place], [place]. Taking methocarbamol 750 mg 3 times [...] reviewed. Dictation completed with the use of [employer] voice recognition software, prone to medical misidentifications [...] for 11/20/2024. #Recent fall: Patient seen at [facility] ED 11/02/2024 s/p fall at work. Denied [...] diffuse joint pain and fatigue. Follows with market analysis director Dr. Clark out of [place], records requested and not yet available for my review. 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 States this was diagnosed by Dr. Dubon out of [place], [place]. Taking methocarbamol 750 mg 3 times [...] reviewed. Dictation completed with the use of [employer] voice recognition software, prone to medical misidentifications [...] Patient reports history of RA. Follows with market analysis director Dr. Clark out of [place]. Has been treated previously with Humira, Enbrel, [...] was diagnosed by Dr. Dubon out of [place], [place]. Taking methocarbamol 750 mg 3 times [...] reviewed. Dictation completed with the use of [employer] voice recognition software, prone to medical misidentifications [...] was diagnosed by Dr. Dubon out of [place], [place]. Taking methocarbamol 750 mg 3 times [...] Dictation was accomplished with the use of [employer] voice recognition software, which is prone to [...] collection. Patient reports recent blood work through [facility] which we will request, otherwise last TSH [...] was diagnosed by Dr. Dubon out of [place], [place]. Taking methocarbamol 750 mg 3 times [...] Dictation was accomplished with the use of [employer] voice recognition software, which is prone to [...] rib syndrome: Follows with Dr. Dubon with [facility]. Underwent repair 12/17/2024. #Ventral hernia: Surgical [...] arthritis: + Rheumatoid factor (152). Follows with market analysis director Dr. Joshua Kaplan out of [place]. Follow-up labs including CAMILO, ESR/CRP, and comprehensive [...] Follows with psychiatric provider Clarice Lara with [facility]. Taking clonazepam 0.5 mg once daily with [...] dysfunction. #Hyperkalemia: Patient reports she was at [facility] ED recently at which time her [...] reviewed. Dictation completed with the use of [employer] voice recognition software, prone to medical misidentifications [...] Patient requesting urgent colonoscopy per recommendation of [facility] surgeon Jewel Dubon. On review of [...] gabapentin TID without symptom improvement. Follows with toy painter Dr. Trivedi. Historically the patient has [...] reviewed. Dictation completed with the use of [employer] voice recognition software, prone to medical misidentifications [...] ER follow-up hospital follow-up. María presented to [facility] ED 04/19/2025 with chief complaint of [...] taking any pain medication. Previously followed with toy painter Dr. Trivedi who provided steroid injections. [...] with added opioid use. WIll refer to toy painter with goal of establishing safe pain management regimen. #RA: Follows with Joshua Kaplan MD out of [place]. Discussed possibility of chronic pain being related [...] reviewed. Dictation completed with the use of [employer] voice recognition software, prone to medical misidentifications [...] Patient requesting urgent colonoscopy per recommendation of [facility] surgeon Jewel Dubon. On review of [...] gabapentin TID without symptom improvement. Follows with toy painter Dr. Trivedi. Historically the patient has [...] reviewed. Dictation completed with the use of [employer] voice recognition software, prone to medical misidentifications [...] ER follow-up hospital follow-up. María presented to [facility] ED 04/19/2025 with chief complaint of [...] since undergone surgical correction with thoracic surgeon eJwel Dubon MD without resolution of pain. While inpatient patient received Tylenol, Dilaudid, and ketorolac for pain management. Not currently taking any pain medication. Previously followed with toy painter Dr. Trivedi who provided steroid injections. [...] with added opioid use. WIll refer to toy painter with goal of establishing safe pain management regimen. #RA: Follows with Joshua Kaplan, MD out of [place]. Discussed possibility of chronic pain being related [...] reviewed. Dictation completed with the use of [employer] voice recognition software, prone to medical misidentifications [...] rib syndrome: Follows with Dr. Dubon with [facility]. Underwent repair 12/17/2024. #Ventral hernia: Surgical [...] arthritis: + Rheumatoid factor (152). Follows with market analysis director Dr. Joshua Kaplan out of [place]. Follow-up labs including CAMILO, ESR/CRP, and comprehensive [...] Follows with psychiatric provider Clarice Lara with [facility]. Taking clonazepam 0.5 mg once daily with [...] dysfunction. #Hyperkalemia: Patient reports she was at [facility] ED recently at which time her [...] reviewed. Dictation completed with the use of [employer] voice recognition software, prone to medical misidentifications [...] was diagnosed by Dr. Dubon out of [place], [place]. Taking methocarbamol 750 mg 3 times [...] Dictation was accomplished with the use of [employer] voice recognition software, which is prone to [...] was diagnosed by Dr. Dubon out of [place], [place]. Taking methocarbamol 750 mg 3 times [...] Dictation was accomplished with the use of [employer] voice recognition software, which is prone to [...] for 11/20/2024. #Recent fall: Patient seen at [facility] ED 11/02/2024 s/p fall at work. Denied [...] diffuse joint pain and fatigue. Follows with market analysis director Dr. Clark out of [place], records requested and not yet available for my review. 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 States this was diagnosed by Dr. Dubon out of [place], [place]. Taking methocarbamol 750 mg 3 times [...] reviewed. Dictation completed with the use of [employer] voice recognition software, prone to medical misidentifications [...] Patient reports history of RA. Follows with market analysis director Dr. Clark out of [place]. Has been treated previously with Humira, Enbrel, [...] was diagnosed by Dr. Dubon out of [place], [place]. Taking methocarbamol 750 mg 3 times [...] reviewed. Dictation completed with the use of [employer] voice recognition software, prone to medical misidentifications [...] for 11/20/2024. #Recent fall: Patient seen at [facility] ED 11/02/2024 s/p fall at work. Denied [...] diffuse joint pain and fatigue. Follows with market analysis director Dr. Clark out of [place], records requested and not yet available for my review. 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 States this was diagnosed by Dr. Dubon out of [place], [place]. Taking methocarbamol 750 mg 3 times [...] reviewed. Dictation completed with the use of [employer] voice recognition software, prone to medical misidentifications [...] Patient reports history of RA. Follows with market analysis director Dr. Clark out of [place]. Has been treated previously with Humira, Enbrel, [...] was diagnosed by Dr. Dubon out of [place], [place]. Taking methocarbamol 750 mg 3 times [...] reviewed. Dictation completed with the use of [employer] voice recognition software, prone to medical misidentifications [...] was diagnosed by Dr. Dubon out of [place]. Taking methocarbamol 750 mg 3 times [...] Dictation was accomplished with the use of [employer] voice recognition software, which is prone to [...] rib syndrome: Follows with Dr. Dubon with [facility]. Underwent repair 12/17/2024. #Ventral hernia: Surgical [...] arthritis: + Rheumatoid factor (152). Follows with market analysis director Dr. Joshua Kaplan out of [place]. Follow-up labs including CAMILO, ESR/CRP, and comprehensive [...] Follows with psychiatric provider Clarice Lara with [facility]. Taking clonazepam 0.5 mg once daily with [...] dysfunction. #Hyperkalemia: Patient reports she was at [facility] ED recently at which time her [...] reviewed. Dictation completed with the use of [employer] voice recognition software, prone to medical misidentifications [...] Patient requesting urgent colonoscopy per recommendation of [facility] surgeon Jewel Dubon. On review of [...] gabapentin TID without symptom improvement. Follows with toy painter Dr. Trivedi. Historically the patient has [...] reviewed. Dictation completed with the use of [employer] voice recognition software, prone to medical misidentifications [...] ER follow-up hospital follow-up. María presented to [facility] ED 04/19/2025 with chief complaint of [...] taking any pain medication. Previously followed with toy painter Dr. Trivedi who provided steroid injections. [...] with added opioid use. WIll refer to toy painter with goal of establishing safe pain management regimen. #RA: Follows with Joshua Kaplan MD out of [place]. Discussed possibility of chronic pain being related [...] reviewed. Dictation completed with the use of [employer] voice recognition software, prone to medical misidentifications [...] ER follow-up hospital follow-up. María presented to [facility] ED 04/19/2025 with chief complaint of [...] taking any pain medication. Previously followed with toy painter Dr. Trivedi who provided steroid injections. [...] with added opioid use. WIll refer to toy painter with goal of establishing safe pain management regimen. #RA: Follows with Joshua Kaplan MD out of [place]. Discussed possibility of chronic pain being related [...] reviewed. Dictation completed with the use of [employer] voice recognition software, prone to medical misidentifications [...] rib syndrome: Follows with Dr. Dubon with [facility]. Underwent repair 12/17/2024. #Ventral hernia: Surgical [...] arthritis: + Rheumatoid factor (152). Follows with market analysis director Dr. Joshua Kaplan out of [place]. Follow-up labs including CAMILO, ESR/CRP, and comprehensive [...] Follows with psychiatric provider Clarice Lara with [facility]. Taking clonazepam 0.5 mg once daily with [...] dysfunction. #Hyperkalemia: Patient reports she was at [facility] ED recently at which time her [...] reviewed. Dictation completed with the use of [employer] voice recognition software, prone to medical misidentifications [...] for 11/20/2024. #Recent fall: Patient seen at [facility] ED 11/02/2024 s/p fall at work. Denied [...] diffuse joint pain and fatigue. Follows with market analysis director Dr. Clark out of [place], records requested and not yet available for my review. 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 States this was diagnosed by Dr. Dubon out of [place], [place]. Taking methocarbamol 750 mg 3 times [...] reviewed. Dictation completed with the use of [employer] voice recognition software, prone to medical misidentifications [...] for 11/20/2024. #Recent fall: Patient seen at [facility] ED 11/02/2024 s/p fall at work. Denied [...] diffuse joint pain and fatigue. Follows with market analysis director Dr. Clark out of [place], records requested and not yet available for my review. 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 States this was diagnosed by Dr. Dubon out of [place], [place]. Taking methocarbamol 750 mg 3 times [...] reviewed. Dictation completed with the use of [employer] voice recognition software, prone to medical misidentifications [...] ER follow-up hospital follow-up. María presented to [facility] ED 04/19/2025 with chief complaint of [...] time. She has since established with therapist uJlieta Christian which she feels will be helpful, [...] taking any pain medication. Previously followed with toy painter Dr. Trivedi who provided steroid injections. [...] with added opioid use. WIll refer to toy painter with goal of establishing safe pain management regimen. #RA: Follows with Joshua Kaplan MD out of [place]. Discussed possibility of chronic pain being related [...] reviewed. Dictation completed with the use of [employer] voice recognition software, prone to medical misidentifications [...] for 11/20/2024. #Recent fall: Patient seen at [facility] ED 11/02/2024 s/p fall at work. Denied [...] diffuse joint pain and fatigue. Follows with market analysis director Dr. Clark out of [place], records requested and not yet available for my review. 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 States this was diagnosed by Dr. Dubon out of [place], [place]. Taking methocarbamol 750 mg 3 times [...] reviewed. Dictation completed with the use of [employer] voice recognition software, prone to medical misidentifications [...] MRI : Thoracic with Contrast 06/19/2025 EKG 03/21/2025 CBC (COMPLETE BLOOD COUNT) WITH [...] Tissue Head Neck 02/03/2025 Comp. Metabolic Panel [id number] 2023 Anti-Mi-2 Ab (RDL)-[id number] 12/13/2024 Anti-Ro (SS-A) Ab (RDL)-[id number] 5 Anti-La (SS-B) Ab (RDL)-[id number] CREATINE KINASE AND CKMB 12/13/2024 Insurance Providers Payer Name Payer Address Payer Phone Subscriber Number Group Number Insured Name Patient Relationship to Insured Coverage Start Date Coverage End Date [facility] [address] [address] [place] [address] [id number] [phone] María Phillips Self - patient is [...]
== END 2025-09-19 10:24 | disposition home or self-care (01) ==
LOC: HO.PMC 09:44
PROVIDERS: Visit Provider Registered Nurse Emergency
DX: M53.3 Sacrococcygeal disorders, not elsewhere classified (principal); M47.816 Spondylosis without myelopathy or radiculopathy, lumbar region; M25.561 Pain in right knee; M25.562 Pain in left knee; F32.A Depression, unspecified; R45.89 Other symptoms and signs involving emotional state
CPT/HCPCS: 99214; G2211

== ENCOUNTER 2025-09-19 10:28 | Emergency (ER) | payer OTHER, SELFPAY ==
--- NOTE | ~2025-09-19 | CT_ITS ---
EXAMINATION: CT ABDOMEN AND PELVIS WITH CONTRAST CLINICAL INFORMATION: abdominal pain COMPARISON: May 06, 2023 TECHNIQUE: Multidetector volumetric images were obtained from the superior aspect of the liver through the pubic symphysis following administration 85 mL of Omnipaque 350 intravenous contrast. Sagittal and coronal reformatted images were obtained on the technologist's workstation. Oral contrast: No This CT examination was performed using dose optimization techniques as appropriate, variously including the following: *Automated exposure control *Adjustment of mA and/or kV according to patient size (this includes techniques or standardized protocols for targeted exams where dose is matched to indication/reason for exam; i.e. extremities or head) *Use of iterative reconstruction technique FINDINGS: LUNG BASES: The visualized lung bases are unremarkable. LIVER, GALLBLADDER, AND BILIARY TREE: Again seen is an indeterminate 11 mm lesion in the superior left hepatic lobe. It is too small to completely characterize. The gallbladder is surgically absent. There are clips in the gallbladder fossa. There is stable mild extra hepatic bile duct dilation. PANCREAS: There is subtle stable mild decreased attenuation in the neck of the pancreas without clear mass. SPLEEN: Unremarkable. ADRENAL GLANDS: Unremarkable. KIDNEYS AND URETERS: The kidneys are normal in size, shape, and attenuation. No hydronephrosis, hydroureter, or calculi seen. No perinephric stranding. BLADDER: Unremarkable. GASTROINTESTINAL TRACT: Numerous pseudodiverticula are present in the descending and sigmoid colon without wall thickening or mesenteric fat stranding. A normal-appearing appendix is identified. ABDOMINAL WALL: No significant hernia is appreciated. LYMPH NODES: Normal. VASCULAR: Unremarkable. PELVIC VISCERA: Uterus and ovaries are unremarkable. OSSEOUS STRUCTURES: There is sacralization of the right transverse process of L5. Moderate degenerative disc disease and facet osteoarthritis is present in the lumbar spine. CT/CT abdomen pelvis w IV con IMPRESSION: Descending and sigmoid diverticulosis without clear sign of infection. Stable low attenuating lesion 11 mm in diameter located in the left hepatic lobe. It is too small to characterize but likely represents a cyst. Fleischner guidelines were followed. Electronically signed by: Surinder Mcclure MD 09/19/2025 01:07 PM [facility]
--- NOTE | ~2025-09-19 | CT_ITS ---
EXAMINATION: CT HEAD WITHOUT CONTRAST CLINICAL INFORMATION: Headache COMPARISON: November 10, 2024 TECHNIQUE: Contiguous axial imaging was performed from the skull base to vertex without intravenous administration of contrast. This CT examination was performed using dose optimization techniques as appropriate, variously including the following: *Automated exposure control *Adjustment of mA and/or kV according to patient size (this includes techniques or standardized protocols for targeted exams where dose is matched to indication/reason for exam; i.e. extremities or head) *Use of iterative reconstruction technique FINDINGS: There is no acute ischemic change. There is no intracranial hemorrhage. There is no mass-effect or midline shift. Basal cisterns and ventricles are within normal limits for age/cerebral volume. Orbits are symmetrical and unremarkable. Paranasal sinuses and mastoid air cells are pneumatized. There are no bony abnormalities. There is a 16 mm wide focal density in the subcutaneous soft tissues of the left frontal scalp that is similar to the prior. CT/CT head/brain wo IV con IMPRESSION: No acute intracranial abnormality. 16 mm left frontal scalp density could represent sebaceous cyst or other subcutaneous soft tissue lesion. It appears unchanged. Electronically signed by: Surinder Mcclure MD 09/19/2025 12:53 PM EST
--- NOTE | 2025-09-19 10:32 | ED_ITS ---
HPI - General Adult General Chief complaint: General Medical Stated complaint: from pain management, tingling L side of head Time Seen by Provider: 09/19/25 11:27 Source: patient Mode of arrival: ambulatory Limitations: no limitations History of Present Illness HPI narrative: This is 60 years old the patient with a history of chronic pain syndrome followed by the pain clinic presented to the emergency department sent by the pain clinic because of complaining of abdominal pain left-sided headache increasing anxiety. Onset (ago): day(s) Location: head and abdomen Radiation: non-radiation Severity: moderate Quality: burning Pain Consistency: constant Related Data Home Medications ?Medication ?Instructions ?Recorded ?Confirmed lorazepam 0.5 mg tablet 0.5 mg PO TID PRN 05/14/25 1 lorazepam 0.5 mg tablet (Ativan) 0.5 mg PO TID PRN 08/27/25 esomeprazole magnesium 40 mg 40 mg PO QAM 08/21/25 capsule,delayed release Previous Rx's ?Medication ?Instructions ?Recorded leg brace (Knee Support Brace) #1 ea 08/12/25 clonazepam 1 mg tablet (Klonopin) 1 mg PO DAILY #4 tab s 09/19/25 omeprazole 20 mg capsule,delayed 20 mg PO DAILY #30 ca ps 09/19/25 release omeprazole 20 mg capsule,delayed 20 mg PO DAILY #30 ca ps 09/19/25 release Allergies Allergy/AdvReac Type Severity Reaction Status Date / Time erythromycin base Allergy Hives Verified 09/19/25 10:36 etanercept (From Enbrel) AdvReac Intermediate diverticuli Verified 09/19/25 10:36 tis leflunomide AdvReac Intermediate diverticuli Verified 09/19/25 10:36 tis prednisone AdvReac Intermediate Body pain Verified 09/19/25 10:36 gabapentin AdvReac Mild tremors Verified 09/19/25 10:36 Review of Systems 2 Constitutional: Constitutional: Reports no additional constitutional complaints Cardiovascular: Cardiovascular: Reports no additional cardiovascular complaints Respiratory: Respiratory: Reports no additional respiratory complaints [facility] Past Medical History Attestation statement: The following information was validated with the patient. Medical History Dermatographia Helicobacter pylori (H. 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 Sacroiliac joint pain Tendonitis of ankle, right Surgical History H/O decompression of ulnar nerve History of surgery Social History Social History Household Members: Spouse and Family Housing: House Alcohol intake: current Alcohol intake frequency: holidays/special occasions only Patient Tobacco Use Status: Current everyday Tobacco user Tobacco use type: Cigarette Cigarettes Per Day: 10 Years Smoked: 15 years Smoked in Last 30 Days: Yes e-Cigarette/Vaping Use: Never Used Use of substances other than those prescribed or required for medical reasons: No Advance Directives: Yes Advance Directives Information Provided: No Advance Directives on File: No Do you have a plan to hurt others: No Plan Patient : No service: No 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 occupational status: employed 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 Physical Exam ED Exam Exam: No acute distress comfortable in the stretcher Vital Signs: Vital Signs - 24 hr 09/19/25 10:34 09/19/25 11:16 09/19/25 12:39 Temperature 97 F 98.3 F 98.3 F Pulse Rate 84 77 69 Respiratory Rate 18 15 15 Blood Pressure 146/85 H 138/79 120/75 Pulse Oximetry 97 95 95 Oxygen Delivery Method Room Air Room Air Room Air BMI result Body Mass Index 27.5 Const General: cooperative Nutritional Appearance: well nourished Orientation/consciousness: patient oriented x3 HENMT Head: Yes normal to inspection Ears: hearing grossly normal bilaterally General nose exam: Normal external nose present Face and sinus: Yes normal facial exam Mouth: Normal oral and palatal mucosa present Neck Neck: Yes normal visual inspection Chest Chest palpation & inspection: normal inspection of the chest Resp Effort & Inspection: normal respiratory effort Auscultation: clear to auscultation bilaterally Cardio Jugular venous distension: no JVD Rate: regular rate Rhythm: regular rhythm GI Inspection: Yes normal to inspection Palpation (GI): Soft to palpation, not firm and nontender Skin General skin exam: no rashes or lesions noted, elasticity normal and turgor normal Neuro General: patient oriented x3 Course Course Course Narrative: This is a rapid medical exam performed by C. Gavin, DIVISION ROADMASTER: Additional HPI, ROS, PE not included below will be deferred to primary provider. Patient is a 60y/o F pmhx SI joint dysfunction, fibromyalgia, slipped rib syndrome, rheumatoid arthritis presenting from pain management office. Recently had rib injections, states not cortisone but unsure what. Today presents from pain management complaining of pain in multiple areas, tingling to left side of face. States she is tired of living with this chronic pain but denies SI. Rates current pain at 10/. Just started HRT, called LAT[facility] D[facility]PER who advised sxs unlikely related to this. Plan: labs Medications Administered Discontinued Medications Generic Name Dose Route Start Last Admin Trade Name Freq PRN Reason Stop Dose Admin Clonazepam 1 mg 09/19/25 14:01 09/19/25 14:12 Clonazepam 1 Mg Tablet PO 09/19/25 14:02 1 mg ONCE ONE Administration Diazepam 5 mg 09/19/25 11:34 09/19/25 11:48 Diazepam 10 Mg/2 Ml Cartridge IVPUSH 09/19/25 11:35 5 mg STAT STA Administration Iohexol 100 ml 09/19/25 12:26 09/19/25 12:26 Iohexol 350 Mg/Ml 100 Ml Infus..Btl IV 09/19/25 12:27 85 ml ONCE ONE Administration Omeprazole 40 mg 09/19/25 14:01 09/19/25 14:12 Omeprazole 40 [address]Dr SEGAL 09/19/25 14:02 40 mg ONCE ONE Administration Medical Decision Making Medical Decision Making [facility] Narrative: Patient is here with multiple complaints she has a history of chronic pain syndrome, we will check routine blood work she looks really anxious we will administer a dose of benzodiazepine 15:17 workup is negative the patient has a history of chronic pain no narcotic medication given by me in the emergency room, I will discharge her on omeprazole I will give a 4 tablets of clonazepam, I reached out to Dr. Feliciano he will see the patient as outpatient for possible upper endoscopy patient is comfortable with the plan of care at this point we will discharge the patient home Differential Diagnosis Differential Diagnoses: The differential diagnosis associated with the presentation includes Anxiety/colitis/diverticulitis Admission/Observation Consideration of admission/observation: Escalation of care including admission/observation considered Consult Healthcare Provider Management of the patient was discussed with: Computer Science Intern Dr Feliciano Lab Data [facility] Lab Attestation statement: I reviewed the patient's lab results. 09/19/25 10:54 09/19/25 10:54 Labs: Lab Results 09/19/25 Range/Units 10:54 WBC 6.5 (4.8-10.8) X10*3/uL RBC 4.52 (4.20-5.50) X10*6/uL Hgb 15.0 (12.0-16.0) g/dl Hct 42.8 (37.0-47.0) % MCV 94.7 (80.0-98.0) fL MCH 33.2 H (27.0-33.0) pg MCHC 35.0 (31.0-35.0) g/dl RDW 13.2 (11.0-16.0) % Plt Count 299 (160-400) X10*3/uL MPV 8.6 L (9.4-12.3) fL Immature Gran % (Auto) 0.2 (0.0-0.4) % Neut % (Auto) 67.8 (45-73) % Lymph % (Auto) 22.5 (20-40) % [place] % (Auto) 6.9 (2-11) % Eos % (Auto) 2.3 (0-4) % Baso % (Auto) 0.3 (0-2) % Lymph # (Auto) 1.5 (1.2-4.9) X10*3/uL [place] # (Auto) 0.5 (0.1-1.2) X10*3/uL Eos # (Auto) 0.2 (0.0-0.4) X10*3/uL Baso # (Auto) 0.0 (0.0-0.2) X10*3/uL Abs Immat Gran (auto) 0.01 (0.00-0.03) X10*3/uL Absolute Neuts (auto) 4.4 (2.0-8.3) x10*3/uL Absolute Nucleated RBC 0.000 (0.0-0.012) X10*3/uL Nucleated RBC % (auto) 0.0 (0.0-0.2) /100WBC ESR 8 (0-20) MM/HR Sodium 139 (135-145) mmol/L Potassium 4.5 (3.3-5.1) mmol/L Chloride 105 (96-108) mmol/L Carbon Dioxide 27 (22-29) mmol/L Anion Gap 12 (12-20) BUN 7 L (9-16) mg/dL Creatinine 0.75 (0.5-1.4) mg/dL Estim Creat Clear Calc 79.8 Estimated GFR > 60 Random Glucose 93 (60-115) mg/dL Calcium 9.3 (8.4-10.2) mg/dL Total Bilirubin 0.4 (0.0-1.0) mg/dL AST 24 (5-31) U/L ALT 21 (0-31) U/L Alkaline Phosphatase 100 (39-117) U/L C-Reactive Protein < 0.10 (< or = 0.50) mg/dL Total Protein 7.4 (6.5-8.0) g/dL Albumin 4.4 (3.5-5.0) g/dL Independent Interpretation I performed an independent interpretation of an: CT Scan Radiology Impression Discussion of test interpretation with radiology: I have reviewed the radiologist's reading. Chronic Conditions Patient?s care impacted by: Other (chronic pain syndrome/anxiety) Discharge Plan Discharge Clinical Impression: Anxiety Abdominal pain Qualifiers: Abdominal location: generalized Qualified Code(s): R10.84 - Generalized abdominal pain Patient Disposition: Home, Self-Care Instructions: Abdominal Pain (ED) Additional Instructions: Follow-up with your primary care physician also follow-up with literacy coordinator I gave you the number of Dr. Feliciano he will do an a patient endoscopy however you will need to make an appointment you need a referral from the primary care physician Prescriptions: New omeprazole 20 mg capsule,delayed release(DR/EC) 20 mg PO DAILY Qty: 30 0RF clonazepam [Klonopin] 1 mg tablet 1 mg PO DAILY Qty: 4 0RF omeprazole 20 mg capsule,delayed release(DR/EC) 20 mg PO DAILY Qty: 30 0RF No Action lorazepam 0.5 mg tablet 0.5 mg PO TID PRN lorazepam [Ativan] 0.5 mg tablet 0.5 mg PO TID PRN (DME) Knee Support Brace Misc See Rx Instructions .Route Qty: 1 0RF Rx Instructions: As directed left knee hinge brace Dx: osteoarthritis esomeprazole magnesium 40 mg capsule,delayed release(DR/EC) 40 mg PO QAM Referrals: Austin Feliciano MD [Physician, Gastroenterology] - 09/24/25 Stand Alone Forms: Work/School Release Print Language: Syriac
[2025-09-19 10:34] VITALS: BP 146/85; PULSE 84; RESP 18; TEMP 36.1; O2SAT 97; BMI 27.5
[2025-09-19 11:00] LABS: MANUAL DIFF FLAG NO
[2025-09-19 11:06] LABS: Hematocrit 42.8 % (37.0-47.0); Hemoglobin 15.0 g/dl (12.0-16.0); Imm Gran Abs Auto 0.01 X10*3/uL (0.00-0.03); Imm Gran Pct Auto 0.2 % (0.0-0.4); Lymphocytes Absolute Auto 1.5 X10*3/uL (1.2-4.9); Mean Corpuscular HGB Conc 35.0 g/dl (31.0-35.0); Mean Corpuscular Hemoglobin 33.2 pg (27.0-33.0); Mean Corpuscular Volume 94.7 fL (80.0-98.0); NRBC Abs Auto 0.000 X10*3/uL (0.0-0.012); NRBC Pct Auto 0.0 /100WBC (0.0-0.2); Platelet Count 299 X10*3/uL (160-400); Red Blood Count 4.52 X10*6/uL (4.20-5.50); White Blood Count 6.5 X10*3/uL (4.8-10.8)
[2025-09-19 11:16] VITALS: BP 138/79; PULSE 77; RESP 15; TEMP 36.8; O2SAT 95
[2025-09-19 11:16] LABS: Alanine Aminotransferase 21 U/L (0-31); Albumin Level 4.4 g/dL (3.5-5.0); Alkaline Phosphatase 100 U/L (39-117); Anion Gap 12 (12-20); Aspartate Amino Transferase 24 U/L (5-31); Blood Urea Nitrogen 7 mg/dL (9-16); Calcium 9.3 mg/dL (8.4-10.2); Carbon Dioxide 27 mmol/L (22-29); Chloride 105 mmol/L (96-108); Creatinine Clr Calc Pharmacy 79.8; Estimated Glomerular Filt Rate > 60; Potassium 4.5 mmol/L (3.3-5.1); Sodium 139 mmol/L (135-145); Total Protein 7.4 g/dL (6.5-8.0)
--- NOTE | 2025-09-19 11:21 | PC.NURSE ---
A&O x 3 Patient presents to ED c/o ABD pain rated 10/10 Pain starts in middle of ABD and moves to the back Patient has extensive hx of ABD issues Patient reports seeing pain management Patient seems overwhelmed with current situations Its mentally wearing on me denies SI/HI Patient sees Dr. Castellanos VSCésar and up to date Provider in to see patient plan of care on going
[2025-09-19] MEDS: diazePAM 10 MG/2 ML CARTRIDGE 5 MG IVPUSH (11:48)
[2025-09-19 11:53] LABS: Erythrocyte Sedimentation Rate 8 MM/HR (0-20)
[2025-09-19] MEDS: iohexoL 350 MG/ML 100 ML INFUS..BTL IV (12:26)
[2025-09-19 12:39] VITALS: BP 120/75; PULSE 69; RESP 15; TEMP 36.8; O2SAT 95
[2025-09-19 15:55] VITALS: BP 120/75; PULSE 69; RESP 15; TEMP 36.8; O2SAT 95
[2025-09-19 16:02] VITALS: BP 120/75; PULSE 69; RESP 15; TEMP 36.8; O2SAT 95
== END 2025-09-19 16:03 | disposition home or self-care (01) ==
PROVIDERS: Registered Nurse Emergency; Emergency Provider Emergency Medicine
DX: R51.9 Headache, unspecified (principal); F41.9 Anxiety disorder, unspecified; R10.84 Generalized abdominal pain; Z79.899 Other long term (current) drug therapy
CPT/HCPCS: 36415; 70450; 74177; 80053; 85025; 85652; 86140; 96374; 99284; J3360; Q9967

== ENCOUNTER → 2025-09-19 11:41 | Outpatient (BNV) | payer OTHER, SELFPAY | PROVIDERS: Emergency Provider Emergency Medicine; Visit Provider Radiology Diagnostic Radiology | DX: K57.30 Diverticulosis of large intestine without perforation or abscess without bleeding (principal); R51.9 Headache, unspecified | CPT/HCPCS: 70450; 74177 ==

== ENCOUNTER 2025-09-26 15:19 | Outpatient (AMB) | payer OTHER, SELFPAY ==
--- OUTSIDE RECORDS SUMMARY | 2024-08-06 07:23 | XMS_ITS | Encounter Summary ---
Author Organization [facility] Address [address] [place] [address] Care Team Providers Care Porcelain Enamel Sprayer Name Role Phone Unavailable Primary Care Provider Unavailabl e Encounter Details Date Type Department Care Team (Late st Contact Info) Description 08/06/2024 8:23 AM EDT Hospital Encounter TH HISTORIC ENCOUNTERS EASTERN CONVERSION ONLY Tutu Trivedi MD [address] [place] [address] Social History Tobacco Use Types Packs/Day Years [...] 4:01 PM EDT Karin Vera RN * [place] Suicide Severity Rating Scale (Screener/Recent Self-Report) Question [...] as of this encounter Procedure Notes * Tuut Trivedi MD - 08/06/2024 8:30 AM EDT [...] eventual strength) 09/11 Ongoing 2. Dominant R logging tractor operator swamp strength at least 35# (vs 20initial, vs [...]
--- OUTSIDE RECORDS SUMMARY | 2024-11-04 08:00 | XMS_ITS ---
Author Organization [facility] Address [address] [place] [address] Care Team Providers Care Chlorine Plant Operator Name Role Phone IKER ROBLERO PA-C Primary Care Provider Latonya Ramirez Unavailable [phone] Allergies Allergen (clinical drug ingredient) Drug/Non Drug Allergy documented on EMR Reaction Allergy Type Onset Date Status erythromycin ERYTHROMYCIN Skin Rash Drug Allergy A ctive REASON FOR VISIT PAP AFTER PREMARIN USE Encounters Encounter Location Date Provider Diagnosis [address] [address] 11/04/2024 Latonya Lozano Plan Of Treatment No Information Progress Notes * DAWSON OLSONMOONOB:1965 (60 yo F)Acc No.[id number]:11/04/2024 PROGRESS NOTES Patient: MARCUS RODRIGUEZ Appointment Provider: Shannon Lozano M.D. :1965 A ge:59 Y S ex:Female Date:11/04/2024 Address:[address] [place], [place] [phone] Pcp:IKER ROBLERO PA-C Subjective: * Chief Complaints: [...] on cytologic smear of cervix (ASC-US). * Chapter Relations Administrator History: G ravida/ Para 2 /2. S exual activity n ot currently sexually active. L ast Pap Smear: ASCUS, POS HRHPV (Neg 16, 18/45), 03/28/22 LGSIL, POS HRHPV (neg 16, 18/45), 11/21/17 NEG HRHPV, 2011. M ammogram: < 50% density, 02/27/19 < 50% density, 07/26/2017 normal, 07/2016 with follow up Lt Diagnostic 07/09/2016 Bx recommended. A bnormal Pap Smear: [place] Negative, 06/06/22 [place] Negative, 03/2022 LGSIL, + HRHPV. L MP [...] Electronic signature of Pato Lozano MD on 09/26/2025 at 03:23 PM EST Sign off status: Pending * Appointment Provider: Shannon Lozano M.D. Date: Generated for Renay bear/Hilton/Nelsonsmitting on: 11/26/2024 03:23 PM EST
--- OUTSIDE RECORDS SUMMARY | 2024-12-05 05:40 | XMS_ITS ---
Author Organization [facility] Address [address] [place] [address] Care Team Providers Care Special Machine Operator Name Role Phone IKER ROBLERO PA-C Primary Care Provider Latonya Ramirez Unavailable [phone] Allergies Allergen (clinical drug ingredient) Drug/Non Drug [...] 6-10 Encounters Encounter Location Date Provider Diagnosis [address] [address] 12/05/2024 Latonya Lozano Plan Of Treatment No Information Progress Notes * MIS OLSONOB:1965 (60 yo F)Acc No.[id number]:12/05/2024 PROGRESS NOTES Patient: MARCUS RODRIGUEZ Appointment Provider: Shannon Lozano M.D. :1965 A ge:59 Y S ex:Female Date:12/05/2024 Address:[address] [place] [address] Pcp:IKER ROBLERO PA-C Subjective: * Chief Complaints: [...] on cytologic smear of cervix (ASC-US). 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 S exual activity n ot currently sexually active. L ast Pap Smear: ASCUS, POS HRHPV (Neg 16, 18/45), 03/28/22 LGSIL, POS HRHPV (neg 16, 18/45), 11/21/17 NEG HRHPV, 2011. M ammogram: < 50% density, 02/27/19 < 50% density, 07/26/2017 normal, 07/2016 with follow up Lt Diagnostic 07/09/2016 Bx recommended. A bnormal Pap Smear: [place] Negative, 06/06/22 [place] Negative, 03/2022 LGSIL, + HRHPV. L MP [...] past 12 months? N o M iscellaneous: C liaen: yes, 2. Domestic violence: no. Home smoke [...] of Pato Lozano MD on 09/26/2025 at 03:22 PM EST Sign off status: Pending * Appointment Provider: Shannon Lozano M.D. Date: 0 12/05/2024 Generated for Renay bear/Hilton/Shaquille on: 11/26/2024 03:22 PM EST
--- OUTSIDE RECORDS SUMMARY | 2025-02-14 06:00 | XMS_ITS ---
Author Organization [facility] Address [address] [place] [address] Care Team Providers Care Development Representative Name Role Phone IKER ROBLERO PA-C Primary Care Provider Unav Latonya Panda Unavailable [phone] REASON FOR VISIT ULTRA - CK OVARIES ? DERMOID ON RT ADNEXA ON X RAY Encounters Encounter Location Date Provider Diagnosis [facility] [address] 02/14/2025 Latonya Lozano Plan Of Treatment No Information Progress Notes * DAWSON OLSONMOONOB:1965 (60 yo F)Acc No.[id number]:02/14/2025 PROGRESS NOTES Patient: MARCUS RODRIGUEZ Appointment Provider: Shannon Lozano M.D. :1965 A ge:59 Y S ex:Female Date:02/14/2025 Address:[address] [place], [place] [id number] Pcp:IKER ROBLERO PA-C Subjective: * Chief Complaints: [...] 02/14/2025 Generated for Kareeni chema/Hilton/eTransmitting on: 1 11/26/2024 03:23 PM EST
--- OUTSIDE RECORDS SUMMARY | 2025-03-03 08:10 | XMS_ITS ---
Author Organization [facility] Address [address] [place] [address] Care Team Providers Care Elderly Companion Name Role Phone IKER ROBLERO PA-C Primary Care Provider Latonya Ramirez Unavailable [phone] Allergies Allergen (clinical drug ingredient) Drug/Non Drug [...] Active Encounters Encounter Location Date Provider Diagnosis [address] [address] 03/03/2025 Latonya Lozano Plan Of Treatment No Information Progress Notes * MIS OLSONOB:1965 (60 yo F)Acc No.[id number]:03/03/2025 Patient: Bhavna DIORMARCUS Appointment Provider: Shannon Lozano M.D. :1965 A ge:59 Y S ex:Female Date:03/03/2025 Address:[address] [place] [address] Pcp:IKER ROBLERO PA-C Subjective: * Chief Complaints: [...] on cytologic smear of cervix (ASC-US). * Help Desk Analyst History: G ravida/ Para 2 /2. S exual activity n ot currently sexually active. L ast Pap Smear: ASCUS, POS HRHPV (Neg 16, 18/45), 03/28/22 LGSIL, POS HRHPV (neg 16, 18/45), 11/21/17 NEG HRHPV, 2011. M ammogram: < 50% density, 02/27/19 < 50% density, 07/26/2017 normal, 07/2016 with follow up Lt Diagnostic 07/09/2016 Bx recommended. A bnormal Pap Smear: [place] Negative, 06/06/22 [place] Negative, 03/2022 LGSIL, + HRHPV. L MP [...] 03/03/2025 Generated for Renay bear/[place]ilton/[place] on: 1 11/26/2024 03:23 PM EST
--- OUTSIDE RECORDS SUMMARY | 2025-03-06 05:00 | XMS_ITS ---
Author Organization [facility] Address [address] [facility] [facility] [address] [place] [address] Care Team Providers Care Cloth Doubling Machine Operator Name Role Phone IKER ROBLERO PA-C Primary Care Provider Latonya Ramirez Unavailable [phone] Allergies Allergen (clinical drug ingredient) Drug/Non Drug [...] Gabapentin 100 MG TAKE 1 CAPSULE BY [facility] 3 TIMES A DAY Oral; Duration: [...] 6-10 Encounters Encounter Location Date Provider Diagnosis [address] [place] [address] 03/06/2025 Latonya Lozano Plan Of Treatment No Information Progress Notes * DAWSON OLSONENDOB:1965 (60 yo F)Acc No.[id number]:03/06/2025 Patient: MARCUS RODRIGUEZ Appointment Provider: Shannon Lozano M.D. :1965 A ge:59 Y S ex:Female Date:03/06/2025 Address:[address] [place], [place] [phone] Pcp:IKER ROBLERO PA-C Subjective: * Chief Complaints: [...] on cytologic smear of cervix (ASC-US). * Collar Shaper Operator History: G ravida/ Para 2 /2. S exual activity n ot currently sexually active. L ast Pap Smear: ASCUS, POS HRHPV (Neg 16, 18/45), 03/28/22 LGSIL, POS HRHPV (neg 16, 18/45), 11/21/17 NEG HRHPV, 2011. M ammogram: Breast Tissue is Almost Entirely Fatty, , 02/27/19 < 50% density, 07/26/2017 normal, 07/2016 with follow up Lt Diagnostic 07/09/2016 Bx recommended. A bnormal Pap Smear: [place] Negative, 06/06/22 [place] Negative, 03/2022 LGSIL, + HRHPV. L MP [...] 03/06/2025 Generated for Renay bear/Hilton/Lambertoitting on: 1 11/26/2024 03:22 PM EST
--- OUTSIDE RECORDS SUMMARY | 2025-09-22 02:48 | XMS_ITS ---
Author Organization [facility] [address] Address [address] [place] [address] Care Team Providers Care Help Desk Manager Name Role Phone IKER ROBLERO Unavailable [phone] REASON FOR VISIT Referral Encounters Encounter Location Date Provider Diagnosis [facility] [address] [address] 09/22/2025 IKER ROBLERO Plan Of Treatment No Information Progress Notes * David OLSONOB:1965 (60 yo F)Acc No.[id number]:09/22/2025 Patient: Bhavna STARKSMaría GOODWIN :1965 A ge:60 Y S ex:Female Address:[address], [place] [address] Subjective: * Chief Complaints: * R eferral * true * Date: Generated for Renay bear/Hilton/eTkayleesmitting on: 11/26/2024 03:22 PM EST
--- OUTSIDE RECORDS SUMMARY | 2025-09-23 09:06 | XMS_ITS ---
Author Organization [facility] [address] Address [address] [place] [address] Care Team Providers Care [address] Lab Technician Name Role Phone IKER ROBLERO Unavailable [phone] Reason For Referral Reason [facility] [place] Diagnosis 1 Epigastric abdominal pain (R10.13) Referral Organization [facility] [address] Referring Provider First Name IKER Referring Provider Last Name ANNIKA Referring Provider Speciality Preventive Medicine Referred Provider Specialty Gastroentero logy General Notes XAVIER VILLANUEVA 09/24 08:31:39 AM EST > Referral has been faxed, [facility] [place], [facility], [address] [facility] [address], [facility] [address], Referral Priority Urgent REASON FOR VISIT RE:Update on referral Encounters Encounter Location Date Provider Diagnosis [facility] [address] [facility] [address] [facility] [address] [place] [address] 09/23/2025 IKER ROBLERO Plan Of Treatment Referrals Referral Date Details 09/24/2025 09/24/2025, [facility] [place]ology Consultation Request Notes Referral Date Referring Provider Referred Provider Not es 09/24/2025 IKER ROBLERO , [facility] [place] Gast[place]terology Progress Notes * David OLSONOB:1965 (60 yo F)Acc No.[id number]:09/23/2025 Patient: Bhavna STARKSMaría GOODWIN :1965 A ge:60 Y S ex:Female Address:[address], [place] [address] Subjective: * Chief Complaints: * R E:Update on referral Plan: * Treatment: * true * Date: Generated for Printi ng/Faxing/[place] on: 11/26/2024 03:22 PM EST
--- OUTSIDE RECORDS SUMMARY | 2025-09-26 15:22 | XMS_ITS | Clinical Summary ---
Author Organization [facility] Address [address] [place] [address] Phone Care Team Providers Care Implementation Services Analyst Name Role Phone Vee Allan MD Primary [...] Medical Devices Not on file Care Teams Implementation Services Analyst Relationship Specialty Start Date End Date Vee Allan MD [address] [place] [address] PCP - General Internal Medicine 09/01/20 Additional Source Comments The information contained in this document represents components of the legal health record. It is not the complete legal health record.[facility]
--- OUTSIDE RECORDS SUMMARY | 2025-09-26 15:22 | XMS_ITS | Encounter Summary ---
Author Organization [facility] Address [address] [place] [address] Care Team Providers Care Manager Cardiology Name Role Phone Araceli Augustin Primary Care Provider + Encounter Details Date Type Department Care Team ([facility] st Contact Info) Description 08/06/2025 Results Follow-Up Gastroenterology - [place] [address] [facility] [address] [facility] [address] [place] [address] Gia Lance, NICOLE [address] [facility] [address] [place] [address] Social History Tobacco Use Types Packs/Day Years [...] filedocumented in this encounter Care Teams Manager Cardiology Relationship Specialty Start Date End Date Araceli Augustin PA [address] [place] [phone] PCP - General 11/20/24 documented as of this encounter
--- OUTSIDE RECORDS SUMMARY | 2025-09-26 15:22 | XMS_ITS | Patient Health Record ---
Author Organization [facility] Address [address] [facility] [address] [place] [address] Care Team Providers Care Toppiece Chopper Name Role Phone IKER ROBLERO PA-C Primary Care Provider Unav Mirella Pandali Unavailable [phone] Allergies Allergen (clinical drug ingredient) Drug/Non Drug Allergy documented on EMR Reaction Allergy Type Onset Date Status erythromycin ERYTHROMYCIN Skin Rash Drug Allergy A ctive Results Component Value Reference Range Notes Urinalysis Reviewed date:10/14/2024 01:33:35 PM Interpretation: Performing Lab: Notes/Report: PH 8.0 PROTEIN Neg GLUCOSE Neg BLOOD Neg 076200-Ici IGP No Culture 30 Plus Reviewed date:07/17/2025 02:32:32 PM Interpretation: Performing Lab:[facility], [address], [address], [place], Phone - [phone], Director - [facility] Notes/Report: Clinical Information:VAG/CERV [id number] Dates / Results....05/26/2023 ASCUS POS HPV Other..............Post Menopausal No. of containers..01 ThinPrep Vial Clinical Information:VAG/CERV [id number] Dates / Results....05/26/2023 ASCUS POS HPV Other..............Post Menopausal No. of containers..01 ThinPrep Vial DIAGNOSIS: NEGATIVE FOR INTRAEPITHELIAL LESION OR MALIGNANCY. THIS SPECIMEN WAS RESCREENED PART OF OUR CLINICAL SPECIALIST VASCULAR PROGRAM. Specimen adequacy: Satisfactory for evaluation. Endocervical and/or squamous metaplastic cells (endocervical component) are present. Clinician provided ICD10: Z01.419 Z11.51 Performed by: Tianna vasquez, [employer] (ASCP) QC reviewed by: Tutu weaver, [employer] (ASCP) . . Note: The Pap smear [...] Report Reviewed date:07/10/2025 04:46:44 PM Interpretation: Performing Lab:[facility], [address], [address], [place], Phone - [phone], [facility] Notes/Report: Clinical Information:VAG/CERV [id number] Dates / Results....05/26/2023 ASCUS POS HPV Other..............Post Menopausal No. of containers..01 ThinPrep Vial PDF Report Reviewed date:08/21/2025 07:50:23 AM Interpretation: Performing Lab:[facility], [address], [address], [place], Phone - [phone], [facility] Notes/Report: Clinical Information:SRC:UR Syphilis RPR w/reflex Reviewed date:08/21/2025 07:51:06 AM Interpretation: Performing Lab:[facility], [address], [address], [place], Phone - [phone], [facility] Notes/Report: Clinical Information:SRC:UR RPR Non Reactive Non Reactive PDF Report Reviewed date:08/20/2025 05:10:43 PM Interpretation: Performing Lab:[facility], [address], [address], [place], Phone - [phone], Director [facility] Notes/Report: Clinical Information:SRC:UC Chlamydia/GC Amplification Reviewed date:08/20/2025 05:10:49 PM Interpretation: Performing Lab:[facility] [place], [address], [address], [place], Phone - [phone], [facility] Notes/Report: Clinical Information:SRC:UC Chlamydia trachomatis, AZEB Negative Negative Neisseria gonorrhoeae, AZEB Negative Negative HCV Antibody-565653 Reviewed date:08/21/2025 07:51:12 AM Interpretation: Performing Lab:[facility] [place], [address], [address], [place], Phone - [phone], Director - [facility] Notes/Report: Clinical Information:SRC:UR Hep C Virus Ab Non Reactive Non Reactive HCV antibody alone does not differentiate between previously resolved infection and active infection. Equivocal and Reactive HCV antibody results should be followed up with an HCV RNA test to support the diagnosis of active HCV infection. M genitalium AZEB, Urine-1800 25 Reviewed date:08/21/2025 07:50:59 AM Interpretation: Performing Lab:[facility] [place], [address], [address], [place], Phone - [phone], Director - [facility] Notes/Report: Clinical Information:SRC:UR Mycoplasma genitalium AZEB Negative Negative HIV Ab/p24 Ag with Reflex-08 3935 Reviewed date:08/21/2025 07:51:19 AM Interpretation: Performing Lab:[facility] [place], [address], [address], [place], Phone - [phone], Director - [facility] Notes/Report: Clinical Information:SRC:UR HIV Ab/p24 Ag Screen Non Reactive Non Reactive HIV-1/HIV-2 antibodies and HIV-1 p24 antigen were NOT detected. There is no laboratory evidence of HIV infection. HIV Negative HBsAg Screen-415697 Reviewed date:08/21/2025 07:50:52 AM Interpretation: Performing Lab:[facility] [place], [address], [address], [place], Phone - [phone], Director - [facility] Notes/Report: Clinical Information:SRC:UR HBsAg Screen Negative Negative PDF Report Reviewed date:07/03/2025 07:41:07 AM Interpretation: Performing Lab:[facility], [address] [place] [address], [place], Phone - [phone], Director Flakito Hunter Notes/Report: Clinical Information:SRC:UC Urine Culture, Routine-98600 7 Reviewed date:07/03/2025 07:42:29 AM Interpretation: Performing Lab:[facility] [address], Phone - [phone], [facility] Notes/Report: Clinical Information:SRC: Clinical Information:SRC:UC Urine Culture, Routine Final report Result 1 Mixed urogenital ramone 25,000-50,000 colony forming units per mL Urinalysis, Complete-269429 Reviewed date:07/03/2025 07:42:16 AM Interpretation: Performing Lab:[facility] [place], [address] [place] [address], Phone - [phone], Director - [place] Notes/Report: Clinical Information:SRC: Clinical Information:SRC:UC Specific [place] 1.013 1.005-1.030 pH 6.5 5.0-7.5 Urine-Color Yellow [...] seen /lpf Bacteria None seen None seen/Few PDF Report Reviewed date:12/14/2024 02:47:46 PM Interpretation: Performing Lab:[facility] [address], Phone - [phone], Director - [place] Notes/Report: Test(s) 109254-Lmp. B1, Whole Blood was developed and its performance characteristics determined by [facility]. It has not been cleared or approved by the Food and Drug Administration. Vitamin B1 (Thiamine), Blood -522083 Reviewed date:12/14/2024 02:48:18 PM Interpretation: Performing Lab:[facility] [address], Phone - [phone], Director - [place] Notes/Report: Test(s) 058427-Jep. B1, Whole Blood was developed and its performance characteristics determined by [facility]. It has not been cleared or approved by the Food and Drug Administration. Vit. B1, Whole Blood 131.3 66.5-200.0 nmol/L Vitamin D, 28-Wzzljti-627119 Reviewed date:12/14/2024 02:47:53 PM Interpretation: Performing Lab:[facility] [address], Phone - [phone], Director [facility] Notes/Report: Test(s) 592254-Vpk. B1, Whole Blood was developed and its performance characteristics determined by [facility]. It has not been cleared or approved by the Food and Drug Administration. Vitamin D, 25-Hydroxy 48.0 30.0-100.0 ng/mL Vitamin D deficiency has been defined by the [place] and an Endocrine Society practice guideline as a level of serum 25-OH vitamin D less than 20 ng/mL (1,2). The Endocrine Society went on to further define vitamin D insufficiency as a level between 21 and 29 ng/mL (2). 1. IOM ([place]). 2010. Dietary reference intakes for calcium and D. [place]: The National Academies Press. 2. Angelica MF, Leonel CALVO, Sheeba MCKENNA, et al. Evaluation, treatment, and prevention of vitamin D deficiency: an Endocrine Society clinical practice guideline. JCEM. 2010; 96(7):1911-30. Triiodothyronine (T3), Free- 944060 Reviewed date:12/14/2024 02:48:08 PM Interpretation: Performing Lab:[facility] [address], Phone - [phone], Director - [place] Notes/Report: Test(s) 841936-Eld. B1, Whole Blood was developed and its performance characteristics determined by [facility]. It has not been cleared or approved by the Food and Drug Administration. Triiodothyronine (T3), Free 2.9 2.0-4.4 pg/mL TSH-432148 Reviewed date:12/14/2024 02:48:55 PM Interpretation: Performing Lab:[facility] [address], Phone - [phone], Director - [facility] Notes/Report: Test(s) 579303-Cjw. B1, Whole Blood was developed and its performance characteristics determined by [facility]. It has not been cleared or approved by the Food and Drug Administration. TSH 0.492 0.450-4.500 uIU/mL Thyroxine (T4) Free, Direct- 427056 Reviewed date:12/14/2024 02:48:28 PM Interpretation: Performing Lab:[facility] [place], [address] [place] [address], Phone - [phone], Director - [facility] Notes/Report: Test(s) 027465-Jtx. B1, Whole Blood was developed and its performance characteristics determined by [facility]. It has not been cleared or approved by the Food and Drug Administration. T4,Free(Direct) 1.16 0.82-1.77 ng/dL Vitamin D32-523849 Reviewed date:12/14/2024 02:48:01 PM Interpretation: Performing Lab:[facility] [place], [address] [place] [address], Phone - [phone], Director - [facility] Notes/Report: Test(s) 054445-Rqk. B1, Whole Blood was developed and its performance characteristics determined by [facility]. It has not been cleared or approved by the Food and Drug Administration. Vitamin B12 775 699-2188 pg/mL Reason For Referral No Information Medications Medication SIG (Take, Route, Frequency, Duration) Notes Start Date End Date Status Vitamin C 500 MG as directed Orally Active Escitalopram Oxalate 10 MG Oral; Duration: 30 Days Active Turmeric 500 MG as directed Orally Active Gabapentin 100 MG TAKE 1 CAPSULE BY [facility] 3 TIMES A DAY Oral; Duration: [...] test positive, high risk on vaginal specimen (350431416558003) Cervical high risk human papillomavirus (HPV) DNA test positive (R87.810) Active confirmed Problem Postmenopausal atrophic vaginitis (45467012) Postmenopausal atrophic vaginitis (N95.2) Active confirmed Problem Cervicovaginal cytology: Low grade squamous intraepithelial lesion (302585621) Low grade squamous intraepithelial lesion on cytologic smear of cervix (LGSIL) (R87.612) Active confirmed Problem Non-toxic single thyroid nodule (837768323) Nontoxic single thyroid nodule (E04.1) Active confirmed Problem Autoimmune thyroiditis (88099154) Autoimmune thyroiditis (E06.3) Active confirmed Problem Anxiety disorder (699619439) Anxiety disorder, unspecified (F41.9) Active confirmed Problem Epidermal cyst (066146631) Epidermal cyst (L72.0) Active confirmed Problem Rheumatoid arthritis (46122001) Rheumatoid arthritis, unspecified (M06.9) Active confirmed Problem Endometrial intraepithelial neoplasia (008946348) 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) Active confirmed Problem Postcoital bleeding (48430242) Postcoital and contact bleeding (N93.0) Active confirmed Problem Unspecified abnormal finding in specimens from female genital organs (R87.9) Active confirmed Problem Menopause (209111778) Menopausal and female climacteric states (N95.1) Active confirmed Problem Anxiety state (988622425) Anxiety state, unspecified (300.00) Active confirmed Major Vital Signs Temperature 97.3 degrees Fahrenheit 07/03/2025 Blood pressure diastolic 84 mm Hg 07/03/2025 Height 62 in 07/03/2025 Blood pressure systolic 128 mm Hg 07/03/2025 Weight 161 lbs 07/03/2025 BMI 29.44 kg/m2 07/03/2025 Encounters Encounter Location Date Provider Diagnosis [facility] [address] [address] 12/05/2024 Latonya Lozano Total [facility] [address] [address] 02/14/2025 Latonyaines DiazLozano Total [address] [address] 03/06/2025 Latonyaines DiazLozano Total [address] [address] 10/14/2024 Latonya Mcgeeva Encounter for gynecological examination (general) (routine) without abnormal findings Z01.419 ; Encounter for screening mammogram for malignant neoplasm of breast Z12.31 ; Personal history of other diseases of the female genital tract Z87.42 ; Cervical high risk human papillomavirus (HPV) DNA test positive R87.810 and Postmenopausal atrophic vaginitis N95.[address] [address] 12/09/2024 Latonyaines Mcgeeva Other fatigue R53.83 and Menopausal and female climacteric states N95.[address] [address] 07/03/2025 Latonya Mcgeeva Lower abdominal pain , unspecified R10.30 ; Atypical squamous cells of undetermined significance on cytologic smear of vagina (ASC-US) R87.620 ; Cervical high risk human papillomavirus (HPV) DNA test positive R87.810 and Encounter for screening for human papillomavirus (HPV) Z11.[address] [address] 09/26/2025 Latonyaines Mcgeeva Total [address] [address] 12/03/2024 Latonyaines DiazLozano [address] [address] 12/12/2024 Latonyaines DiazLozano [address] [address] 01/22/2025 Latonyaines DiazLozano Total [facility] [address] [address] 02/16/2025 Latonya Mcgeeva Total [facility] [address] [address] 06/30/2025 Latonya Lozano Dysuria R30.[address] [address] 08/19/2025 Latonyaines Lozano High risk heterosexu al behavior Z72.[address] [address] 09/09/2025 Latonya Mcgeeva Total [address] [address] 09/18/2025 Latonya Lozano Assessments Encounter Date Diagnosis [...] AND NEEDS TESTOSTERONE THERAPY, WILL REFER TO [facility]. WARNED PAT OF POSSIBLE VAGINAL [...] 10/14/2024 MM Digital Mammo Screening 05/04/2023 Chlamydia/GC Amplification-346890 2024 Insurance Providers Payer Name Payer Address Payer Phone Subscriber Number Group Number Insured Name Patient Relationship to Insured Coverage Start Date Coverage End Date [address] [address] [place] QUINONEZ [id number] MARCUS OLSON Self - patient is the [...]
--- NOTE | 2025-09-26 15:23 | MHC.OFFVIS ---
Vital Signs 09/26/25 15:26 Height 5 ft 5 in Weight 196 lb BMI 32.6 BP 135/97 H Blood Pressure Location Rt brachial Position Sitting Respiration 16 Pulse 93 Pulse Source Pulse Oximeter Pulse Oximetry (%) 95 Oxygen Delivery Method Room Air Intake Visit Reasons: FOLLOW UP AFTER PROCEDURE Well Shooter Required: No Accompanied by: Self / Same As Patient Allergies erythromycin base Allergy (Verified 09/26/25 15:28) Hives etanercept (From Enbrel) Adverse Reaction (Intermediate, Verified 09/26/25 15:28) diverticulitis leflunomide Adverse Reaction (Intermediate, Verified 09/26/25 15:28) diverticulitis prednisone Adverse Reaction (Intermediate, Verified 09/26/25 15:28) Body pain gabapentin Adverse Reaction (Mild, Verified 09/26/25 15:28) tremors HPI Comments Details: The patient is a 60-year-old individual presenting for follow up. The rib pain has been persistent and worsened following an intercostal nerve block performed by thoracic surgeon approx 2 weeks ago, which was intended to alleviate the discomfort but instead exacerbated it. The pain radiates from the rib area to the back, causing significant discomfort and impacting daily activities. The patient reports that the pain is severe enough to interfere with sleep and daily functioning. 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 The patient has been experiencing adverse effects from hormone replacement therapy, including mood swings and depression, which began shortly after starting the treatment. The patient has decided to discontinue the therapy due to these side effects. A recent CAT scan in the ER warranted outpatient follow up, prompting a referral to a painter structural steel, which has been delayed due to referral issues. The patient is experiencing frustration with the referral process and is seeking alternative options to expedite the consultation. She would like to be referred to Dr. Feliciano for abdominal pain. - Onset: Persistent rib pain worsened after intercostal nerve block - Quality: Severe, radiating from rib area to back - Exacerbating factors: Intercostal nerve block - Impact: Interferes with sleep and daily activities - Affect: Mood swings and depression due to hormone replacement therapy - Analgesia: No specific pain medications discussed - Adverse Effects: Hormone replacement therapy causing mood disturbances - Activities of Daily Living: Pain interferes with sleep and daily functioning - Aberrant Drug Related Behaviors: None reported [facility] Medical History Dermatographia Helicobacter pylori (H. 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 Sacroiliac joint pain Tendonitis of ankle, right Surgical History H/O decompression of ulnar nerve History of surgery Social History Household Members: Spouse and Family Housing: House Alcohol intake: current Alcohol intake frequency: holidays/special occasions only Patient Tobacco Use Status: Current everyday Tobacco user Tobacco use type: Cigarette Cigarettes Per Day: 10 Years Smoked: 15 years e-Cigarette/Vaping Use: Never Used service: No Current occupational status: employed 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 Answers questions appropriately. Fully engaged in examination. Skin: warm, dry, intact HEENT: Normocephalic. Hearing intact. Cardiac: External chest normal in appearance. Respiratory: No cough, audible wheezing or stridor. Abdomen: without gross distension. MS: No obvious swelling or deformities. Neurological: Oriented to person, place, time and situation. Psychiatric: Appropriate mood and affect. Good judgment and insight. Vital Signs: Last Vital Signs Pulse 93 09/26/25 15:26 Resp 16 09/26/25 15:26 BP 135/97 H 09/26/25 15:26 Pulse Ox 95 09/26/25 15:26 Oxygen Delivery Method Room Air 09/26/25 15:26 BMI result Body Mass Index 32.6 Results Reviewed Results Reviewed: 02/10/25 MRI pelvis Findings: No acute fracture or concerning bone marrow signal alteration is identified. Alignment at the sacroiliac joints, hip joints, and pubic symphysis is anatomic. No significant subcortical bone marrow edema at the hip joints. Minor degenerative change of the hip joints. Small right hip joint effusion. Pubic rami are intact. No free fluid within the pelvis. Impression: No acute findings. Minor bilateral hip DJD. 01/21/25 x-ray sacroiliac joint FINDINGS: Mild sclerosis in the inferior aspect of the sacroiliac joints, left greater than the right side. There is a prominent right lateral transverse processes of L5 abutting the right S1. Marginal osteophyte formation and endplate sclerosis with decreased intervertebral disc height at L4-5 and L5-S1. Degenerative changes in the symphysis pubis. No acute cortical disruption. No lytic or blastic lesions. Focal calcifications overlapping the right mid sacrum. IMPRESSION: Mild left-sided sacroiliitis. 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 01/13/25 MR LUMBAR SPINE Findings: Minimal grade 1 retrolistheses T12 on L1, L1 on L2 and L2 on L3. No acute fracture or pathologic bone lesion. Cauda equina and conus medullaris within normal limits. T12-L1: Modic type 2 endplate changes. No significant disc displacement. Facet arthropathy. No significant spinal stenosis. Moderate right foraminal stenosis. L1-L2: Biforaminal disc protrusions and facet arthropathy. No significant spinal stenosis. Moderate bilateral foraminal stenoses. L2-L3: Biforaminal disc protrusions and facet arthropathy. No significant spinal stenosis. Mild right and moderate left foraminal stenoses. L3-L4: Moderate disc bulge and facet arthropathy. Mild spinal stenosis. Mild right and moderate left foraminal stenoses. L4-L5: Moderate disc bulge and facet arthropathy. Mild spinal stenosis. Severe bilateral foraminal stenoses, left greater than right. L5-S1: Mild disc bulge and facet arthropathy. No significant spinal stenosis. Moderate left foraminal stenosis. Visualized retroperitoneum unremarkable. Paraspinous musculature intact. IMPRESSION: 1. L3-4 and L4-5 disc bulges with mild spinal stenosis. 2. Multilevel facet arthropathy with varying degrees of foraminal stenoses, most prominent at L4-5. 3. Multilevel grade 1 spondylolistheses. No acute fracture. Assessment & Plan Assessment & Plan (1) Abdominal pain: Code(s): R10.9 - Unspecified abdominal pain Category: Medical Qualifiers: Abdominal location: generalized Qualified Code(s): R10.84 - Generalized abdominal pain (2) Diverticulitis: Code(s): K57.92 - Diverticulitis of intestine, part unspecified, without perforation or abscess without bleeding Category: Medical (3) Sacroiliac joint dysfunction of both sides: Code(s): M53.3 - Sacrococcygeal disorders, not elsewhere classified Category: Medical (4) Lumbar facet arthropathy: Code(s): M47.816 - Spondylosis without myelopathy or radiculopathy, lumbar region Category: Medical (5) Bilateral knee pain: Code(s): M25.561 - Pain in right knee; M25.562 - Pain in left knee Category: Medical (6) Slipped rib syndrome: Code(s): M94.0 - Chondrocostal junction syndrome [Tietze] Category: Medical (7) Fibromyalgia, primary: Code(s): M79.7 - Fibromyalgia Category: Medical Plan The primary focus is on addressing the rib pain, which has been exacerbated by previous interventions such as the intercostal nerve block. A diagnostic injection at the thoracic level is planned to assess the potential for a nerve stimulator to alleviate pain. The patient is advised to contact Go Cart Mechanic to discuss the discontinuation of hormone replacement therapy due to adverse effects, and alternative management strategies for mood stabilization are being considered. Efforts are being made to expedite the referral process for GI eval, with the patient encouraged to seek alternative referral pathways if necessary. The patient's history of Rock's thyroiditis is noted, and its potential impact on current health issues is being monitored. Will schedule for fluoroscopy guided right diagnostic T8 T9 T10 MBBs with local anesthetic. Patient was informed and verbally consented to the use of an ambient scribe for clinic note documentation during this visit. Orders: Referrals Gastroenterology Referral K57.92 - Diverticulitis of intestine, part unspecified, without perforation or abscess without bleeding, R10.84 - Generalized abdominal pain Patient Instructions: - Discontinue hormone replacement therapy due to adverse effects. - Referral has been placed for painter structural steel, Dr. Feliciano per patient request. - Consider alternative treatments for mood stabilization. - Await scheduling for diagnostic injection at thoracic level. Coding Level of Care Code Est Pt Level 3 (37373) Complex visit Add On G2211 Diagnoses Abdominal pain R10.84 Abdominal location: generalized Diverticulitis K57.92 Sacroiliac joint dysfunction of both sides M53.3 Lumbar facet arthropathy M47.816 Bilateral knee pain M25.561; M25.562 Slipped rib syndrome M94.0 Fibromyalgia, primary M79.7
--- OUTSIDE RECORDS SUMMARY | 2025-09-26 15:23 | XMS_ITS | Encounter Summary ---
Author Organization [facility] Address [address] [place] [address] [place] [address] Phone Care Team Providers Care Senior Consumer Insights Consultant Name Role Phone Vee Allan MD Primary Care Pr ovider Encounter Details Date Type Department Care Team (Late st Contact Info) Description 10/08/2020 Ancillary Orders [facility] - Orthopaedics Outpatient Practice [address] [facility], 1[address], [address] [place] [address] Finn Bone MD [address] [place] [address] [email or web address] joint pain Social History Tobacco Use [...] hand documented in this encounter Care Teams Senior Consumer Insights Consultant Relationship Specialty Start Date End Date Vee Allan MD [address] [place] [address] PCP - General Internal Medicine 09/01/20 documented as of this encounter Additional Source Comments The information contained in this document represents components of the legal health record. It is not the complete legal health record.[facility]
--- OUTSIDE RECORDS SUMMARY | 2025-09-26 15:23 | XMS_ITS | Clinical Summary ---
Author Organization [facility] Address [address] [place] [address] Phone Care Team Providers Care Mold Sander Name Role Phone Araceli Augustin Primary Care [...] necrosis of lunate bone of right wrist (CMS/[facility]ER[facility] V24, CMS/[facility]ER[facility] V28) 06/24/2025 Osteochondrosis of lunate of left wrist 06/21/20 25 Suicidal ideation 04/21/2025 Chronic right-sided thoracic back pain 5 Acute bilateral low back pain with bilateral sci atica 01/02/2025 Assessment & Plan (01/02/2025 5:46 PM EST): Ms. Phillips describes increasing issues with her lower back and legs. The lumbar CT from [facility] show degenerative disc disease but not stenosis. Her description of paresthesias and leg shaking raise concerns for stenosis. Her workup at the [facility] ER did not correlate with cauda equina syndrome. She is now awaiting a lumbar spine MRI at [place]. I be happy to review that once [...] this, is currently seeing 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 [place] at [facility], had injection in [...] Other specified anxiety disorders 02/09/2021 Rheumatoid arthritis ([facility] V24, [facility] V28) 12/25/2020 Carpal tunnel syndrome 01/23/2020 Overview [...] Encounters Date Type Department Care Team Description 09/24/2025 Telephone Gastroenterology [facility] 175 [facility] 175 [facility] [address] [place] [phone] Melba uBnn MD 09/15/2025 3:45 PM EST Office Visit Orthopedic Surgery [facility] 175 [facility] [address] [place] [address] Bessy Mesa MD 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 (CMS/HCC V24, CMS/HCC V28) (Primary Dx) 09/15/2025 Telephone Orthopedic Surgery [facility] [address] [phone] Bessy Mesa MD 09/11/2025 12:30 PM EST Treatment [facility] Occupational Therapy [address] [phone] Nichelle Milian, OT 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) 09/11/2025 Telephone Orthopedic Surgery [facility] 250 175 [facility] [address] [place] [phone] Bessy Mesa MD 09/04/2025 12:30 PM EDT Treatment [facility] [address] [phone] Shanell Bowen COTA/Ulices 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) 08/28/2025 1:30 PM EDT [facility] 175 [facility] [address] [place] [address] [place] Nichelle Curt, OT 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) 08/21/2025 12:00 PM EDT Evaluation [facility] Occupational Therapy 175 [facility] [address] [place] [address] Nichelle Milian, OT 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) 08/14/2025 3:30 PM EDT Office Visit Orthopedic [facility] 250 175 [facility] [address] [place] [address] Von Mcclure MD Knee pain (Primary Dx); Post-traumatic osteoarthritis of left knee; Primary osteoarthritis of right knee 08/13/2025 Telephone Gastroenterology [facility] 175 [facility] 175 [facility] [address] [place] [address] Gia Lance, NICOLE 08/12/2025 3:45 PM EDT Office Visit Orthopedic Surgery [facility] [address] [phone] Bessy Mesa MD Wrist pain (Primary Dx); Osteochondrosis of lunate of right wrist; Surgery follow-up 08/06/2025 Results Follow-Up [facility] 175 [facility] 175 [facility] [address] [place] [address] Gia Lance NP 08/05/2025 Telephone Orthopedic Surgery [facility] [address] [phone] Von Mcclure MD 08/04/2025 Telephone Orthopedic Surgery [facility] [address] [phone] Bessy Mesa MD 07/29/2025 3:45 PM EDT Office Visit Orthopedic [facility] 175 [facility] [address] [place] [address] Bessy Mesa MD Osteochondrosis of lunate of right wrist (Primary Dx); Surgery follow-up 07/29/2025 Telephone Orthopedic Surgery [facility] 250 175 [facility] [address] [place] [phone] Von Mcclure MD 07/28/2025 2:40 PM EDT Office Visit Gastroenterology - [place] 175 [facility] 175 [facility] [address] [place] [phone] Gia Lance, NICOLE Erosive gastropathy (Primary Dx); Abdominal pain, chronic, right upper quadrant; History of Helicobacter pylori infection; Esophageal dysmotility; Tobacco use disorder 07/24/2025 8:40 AM EDT Consult Endocrinology [address] [phone] Marian Turner MD Hypothyroidism (acquired) (Primary Dx); Hyperthyroidism 07/24/2025 Telephone Orthopedic Surgery [facility] 175 [facility] [address] [place] [phone] Bessy Mesa MD 07/23/2025 3:30 PM EDT Office Visit Orthopedic Surgery [facility] 175 [facility] [address] [place] [phone] Nichelle Archibald PA Surgery follow-up (Primary Dx) 07/23/2025 Telephone Orthopedic Surgery [facility] [address] [phone] Jacquelyn Sow 07/16/2025 1:10 PM EDT Anesthesia Event [facility] [place] [address] [place] [phone] Magda Siegel MD Chang, Ling, CRNA 07/16/2025 12:30 PM EDT - 07/16/2025 2:00 PM EDT Surgery [facility] OR [address] [place] [phone] Bessy Mesa MD core decompression right distal radius [34933 (CPT )] 07/16/2025 10:33 AM EDT - 07/16/2025 4:05 PM EDT Hospital Encounter [facility] [place] [address] [place] [phone] Bessy Mesa MD 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 ([facility] V24, [facility]/HCC V28) Discharge Disposition: Home or Self Care 07/16/2025 7:20 AM EDT - 07/16/2025 11:59 PM EDT Hospital Encounter [facility] Xray [address] [place] [phone] Pain Discharge Disposition: Home or Self Care 07/16/2025 Telephone Gastroenterology [facility] 175 [facility] 175 [facility] [address] [place] [phone] Gia Lance NP 07/15/2025 Telephone Orthopedic Surgery [facility] [address] [phone] Bessy Mesa MD 07/08/2025 6:02 PM EDT - 07/08/2025 10:10 PM EDT Emergency [facility] Emergency [address] [place] [phone] Jalil Steven MD Goebel, Mathew, MD Spinal stenosis of lumbar region, unspecified whether neurogenic claudication present (Primary Dx) Discharge Disposition: Home or Self Care 07/08/2025 3:15 PM EDT Consult Orthopedic Surgery [facility] 175 [facility] [address] [place] [phone] Bessy Mesa MD Osteochondrosis of lunate of left wrist (Primary Dx) 06/26/2025 Telephone Orthopedic Surgery [facility] [address] [phone] Siria Palumbo from Last 3 Months Immunizations Immunization Administration Dates Next Due Hepatitis B (Snpwawj-V-Ojykr , Recombivax HB-Adult) 19yo and older 02/21/2022,01/17/2022 [...] tissue CARPAL TUNNEL RELEASE 01/20/2020 Right PROCEDURE: AR NEUROPLASTY &/TRANSPOS MEDIAN NRV CARPAL TUNNE COLONOSCOPY OTHER SURGICAL HISTORY 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 [facility] WRIST SURGERY 11/06/2021 - 11/05/2022 Left [...] 07/29/2025 3:36 PM EDT Plan of Treatment Health Maintenance Due Date [...] visits General No change(2024 4:47 PM EST) Nichelle Mhuammad, OT Note: 1> Indep HEP (splint weaning, ROM, pain manage, eventual strength) 09/11 Ongoing 2. Dominant R landscape artist strength at least 35# (vs 20initial, vs [...] 2/10 pain 09/11 Not met: pain level 8/ Procedures Procedure Name Priority Date/Time Associated Diagnosis [...] LMA(NO CHARGE) Routine 07/16/2025 1:23 PM EDT AR OSTEOTOMY RADIUS DISTAL THIRD 07/16/2025 1:09 PM [...] AND DIFFERENTIAL STAT 07/08/2025 7:06 PM EDT COLONOSCOPY Routine 06/05/2025 12:23 PM EDT Diarrhea, [...] mellitus Screening for thyroid disorder Avitaminosis D HM HEPATITIS C SCREENING Routine 05/20/2024 HM HIV SCREENING Routine 05/20/2024 HPV Routine 07/20/2023 [...] detected Not detected 08/05/2025 2:52 PM EDT [facility] Comment: This test was performed at [facility] using a chemiluminescent immunoassay intended for the [...] Food and Drug Administration. Test performed at [facility], [address] [place] [address] Krystina Austin MD, PhD - State Game Protector Stool Rectum structure / Unknown Non-blood Collection / Unknown 07/30/2025 9:58 AM EDT 07/30/2025 9:58 AM EDT Gia Lance NP LAB BODY FLUIDS AND STOOLS ROD ESCALANTE Final Result [facility] [address] [place] [address] * Thyroid stimulating hormone with reflex to free t4 and free t3 (07/24/2025 9:32 AM EDT) TSH 1.20 0.40 - 4.00 mcIU/mL LAB CHEMISTRY METHOD 07/24/2025 12:39 PM EDT [facility] Blood Venous blood specimen / Unknown Venipuncture / Unknown 07/24/2025 9:32 AM EDT 07/24/2025 9:32 AM EDT Marian Turner MD LAB BLOOD ORDERABLES Final Res ult Performing Organization Address [facility]/ZIP Co de Phone Number [facility] [address] [place] [address], [place] [phone] * Thyroid stimulating immunoglobulin (07/24/2025 9:32 AM EDT) Pathologist [facility] Thyroid Stimulating Immunoglobulin <0.10 <0.10 IU/L 07/28/2025 7:54 PM EDT [facility] Comment: Thyroid stimulating immunoglobulins (TSI) concentrations greater than or equal to (>=) 0.55 IU/L have a clinical sensitivity of at least 98.6%, and a clinical specificity of at least 98.5%, for the differential diagnosis of Graves' Disease. TSI concentrations for patients with other thyroid or autoimmune diseases range from 0.11 to 0.39 IU/L. Test performed at [facility], [address] , [place] [address] Krystina Austin MD, PhD - State Game Protector Blood Venous blood specimen / Unknown Venipuncture / Unknown 07/24/2025 9:32 AM EDT 07/24/2025 9:32 AM EDT Marian Turner MD LAB BLOOD ORDERABLES Final Res ult [facility] [address] [place] [address] * Triiodothyronine free (07/24/2025 9:32 AM EDT) T3, Free 316 230 - 420 pcg/dL LAB CHEMISTRY METHOD 07/24/2025 12:38 PM EDT [facility] Blood Venous blood specimen / Unknown Venipuncture / Unknown 07/24/2025 9:32 AM EDT 07/24/2025 9:32 AM EDT Marian Turner MD LAB BLOOD ORDERABLES Final Res ult Performing Organization Address City/[facility]/ZIP Co de Phone Number [facility] [address] [place] [address], [place] [phone] * Thyroxine free (07/24/2025 9:32 AM EDT) Free T4 1.16 0.70 - 1.80 ng/dL LAB CHEMISTRY METHOD 07/24/2025 12:38 PM EDT [facility] Blood Venous blood specimen / Unknown Venipuncture / Unknown 07/24/2025 9:32 AM EDT 07/24/2025 9:32 AM EDT Marian Turner MD LAB BLOOD ORDERABLES Final Res ult [facility] [address] [place] [address], [place] [phone] * Tissue exam (07/16/2025 1:50 PM EDT) Final Diagnosis Bone, Right, Distal Radius-decomp ression: -FRAGMENTS OF TRABECULAR BONE WITH NO SPECIFIC PATHOLOGIC CHANGE 07/18/2025 12:03 PM EDT [facility] Comment Intact specimen with articular cartilage is preferred specimen for evaluating avascular necrosis. 07/18/2025 12:03 PM EDT [facility] Gross Description A. Wrist, Right, Distal Radius: Labeled right dis wrist R . Received in formalin is a 1.4 x 0.8 x 0.2 cm aggregate of hard, rocha-red bone fragments which are wrapped in paper and submitted in toto in one cassette, multiple pieces, following decalcificati on. TS 07/18/2025 12:03 PM EDT [facility] Disclaimer Unless otherwise specified, all tissue is 10% NB formalin fixed and paraffin embedded. 07/18/2025 12:03 PM EDT [facility] Bone Structure of right wrist region / Unknown 07/16/2025 1:50 PM EDT 07/16/2025 3:19 PM EDT Bessy Mesa MD LAB PATHOLOGY ORDERABLES Nataliia vasquez Result [facility] [address] [place] [address], * (ABNORMAL) Culture anaerobic with gram stain (07/16/2025 1:40 PM EDT) Culture, Anaerobic No Growth of Anaerobes. 07/24/2025 8:51 AM EDT [facility] Culture, Anaerobic Staphylococcus warneri(A) ABBEY 07/24/2025 8:51 AM EDT [facility] Comment: SPARSE Beta-lactamase negative The organism value for this result has been updated. These results have been appended to the previously preliminary verified report. Edited result: Previously reported as Gram Positive Cocci on 07/20/2025 at 0832 EDT. Culture, Anaerobic Streptococcus viridans group(A) ABBEY 07/24/2025 8:51 AM EDT [facility] Comment: SPARSE Susceptibility testing not [...] species,not anthracis(A) ABBEY 07/24/2025 8:51 AM EDT [facility] Comment: SPARSE The organism value for this result has been updated. These results have been appended to the previously preliminary verified report. Gram Stain Result Refer to Aerobic culture for gram stain results. 07/24/2025 8:51 AM EDT [facility] Swab Structure of right wrist [...] MICROBIOLOGY - GENERAL OR DERABLES Final Result [facility] [address] [place] [address], * Culture wound deep (07/16/2025 1:40 PM EDT) Culture, Wound No growth at 3 days 07/19/2025 10:14 AM EDT [facility] Gram Stain Result No polymorphonuclear leukocytes, No epithelial cells, and No organisms noted 07/19/2025 10:14 AM EDT [facility] Swab Structure of right wrist region / Unknown 07/16/2025 1:40 PM EDT 07/16/2025 2:37 PM EDT Bessy Mesa MD LAB MICROBIOLOGY - GENERAL OR DERABLES Final Result [facility] [address] [place] [address], [place] [phone] * TH AN LMA(NO CHARGE) (07/16/2025 1:23 [...] spinal canal stenosis T12-L1 through L4-L5, and khoy-la-vrqtqbdx bilateral L4-L5 neural foraminal stenosis. 2. Unremarkable [...] spinal canal stenosis from T12-L1 through L4-L5. Isqv-ac-wdszdhfy bilateral L4-L5 neural foraminal stenosis. Unremarkable appearance [...] spinal canal stenosis from T12-L1 through L4-L5. Njlo-zq-hkqpyrnf bilateral L4-L5 neural foraminal stenosis. Unremarkable appearance of the conus medullaris and cauda equina. Paraspinous musculature intact. IMPRESSION: 1. Multilevel degenerative changes of the lumbar spine as described contributing to mild multifocal spinal canal stenosis T12-L1 through L4-L5, and cqjs-ol-raemnair bilateral L4-L5 neural foraminal stenosis. 2. Unremarkable appearance of the conus medullaris and cauda equina. This document has been electronically signed by: James Sheth MD on 07/08/2025 21:13:43 Jalil Steven MD IM MRI PROCEDURES Final Result * (ABNORMAL) CBC auto differential (07/08/2025 7:06 PM EDT) WBC 7.5 4.8 - 10.8 K/mcL LAB HEMETOLOGY METHOD 07/08/2025 7:22 PM [facility] RBC 4.20 3.80 - 4.80 M/mcL LAB HEMETOLOGY METHOD 07/08/2025 7:22 PM [facility] Hemoglobin 13.8 11.5 - 16.0 g/dL LAB HEMETOLOGY METHOD 07/08/2025 7:22 PM [facility] Hematocrit 40.7 35.0 - 47.0 % LAB HEMETOLOGY METHOD 07/08/2025 7:22 PM [facility] MCV 97.4 79.0 - 98.0 FL LAB HEMETOLOGY METHOD 07/08/2025 7:22 PM [facility] MCH 33.0(H) 27.0 - 32.0 pcg LAB HEMETOLOGY METHOD 07/08/2025 7:22 PM [facility] MCHC 33.9 32.0 - 37.0 g/dL LAB HEMETOLOGY METHOD 07/08/2025 7:22 PM [facility] RDW 12.7 11.0 - 15.0 % LAB HEMETOLOGY METHOD 07/08/2025 7:22 PM [facility] Platelets 311 130 - 400 K/mcL LAB HEMETOLOGY METHOD 07/08/2025 7:22 PM [facility] MPV 9.3 7.0 - 11.0 FL LAB HEMETOLOGY METHOD 07/08/2025 7:22 PM [facility] NRBC 0.0 <1.0 % LAB HEMETOLOGY METHOD 07/08/2025 7:22 PM [facility] NRBC Absolute 0.00 <0.10 K/mcL LAB HEMETOLOGY METHOD 07/08/2025 7:22 PM [facility] Neutrophils Relative 49.3 % LAB HEMETOLOGY METHOD 07/08/2025 7:22 PM [facility] Lymphocytes Relative 39.4 % LAB HEMETOLOGY METHOD 07/08/2025 7:22 PM [facility] Monocytes Relative 7.6 % LAB HEMETOLOGY METHOD 07/08/2025 7:22 PM [facility] Eosinophils Relative 2.9 % LAB HEMETOLOGY METHOD 07/08/2025 7:22 PM [facility] Basophils Relative 0.5 % LAB HEMETOLOGY METHOD 07/08/2025 7:22 PM [facility] Immature Granulocytes Relative 0.3 % LAB HEMETOLOGY METHOD 07/08/2025 7:22 PM [facility] Neutrophils Absolute 3.68 1.50 - 7.00 K/mcL LAB HEMETOLOGY METHOD 07/08/2025 7:22 PM [facility] Lymphocytes Absolute 2.94 1.00 - 5.00 K/mcL LAB HEMETOLOGY METHOD 07/08/2025 7:22 PM [facility] Monocytes Absolute 0.57 0.20 - 1.00 K/mcL LAB HEMETOLOGY METHOD 07/08/2025 7:22 PM [facility] Eosinophils Absolute 0.22 0.00 - 0.50 K/mcL LAB HEMETOLOGY METHOD 07/08/2025 7:22 PM [facility] Basophils Absolute 0.04 0.00 - 0.20 K/mcL LAB HEMETOLOGY METHOD 07/08/2025 7:22 PM [facility] Immature Granulocytes Absolute 0.02 0.00 - 0.03 K/mcL LAB HEMETOLOGY METHOD 07/08/2025 7:22 PM [facility] Blood Venous blood specimen / Unknown Venipuncture / Unknown 07/08/2025 7:06 PM EDT 07/08/2025 7:15 PM EDT Juan F Doshi MD LAB BLOOD ORDERABLES Final Result Performing Organization Address City/[facility]/ZIP Co de Phone Number [facility] [address] [place] [address], [place] [phone] * Lipase (07/08/2025 7:06 PM EDT) [facility] Lipase 19 13 - 75 unit/L LAB CHEMISTRY METHOD 07/08/2025 7:54 PM EDT [facility] Blood Venous blood specimen / Unknown Venipuncture / Unknown 07/08/2025 7:06 PM EDT 07/08/2025 7:15 PM EDT Juan F Doshi MD LAB BLOOD ORDERABLES Final Result Performing Organization Address [facility]/ZIP Co de Phone Number [facility] [address] [place] [address], [place] [phone] * Comprehensive metabolic panel (07/08/2025 7:06 PM EDT) [facility] Sodium 140 133 - 145 mmol/L LAB CHEMISTRY METHOD 07/08/2025 7:54 PM EDT [facility] Potassium 4.1 3.5 - 5.5 mmol/L LAB CHEMISTRY METHOD 07/08/2025 7:54 PM EDT [facility] Chloride 104 96 - 110 mmol/L LAB CHEMISTRY METHOD 07/08/2025 7:54 PM EDT [facility] CO2 29 21 - 32 mmol/L LAB CHEMISTRY METHOD 07/08/2025 7:54 PM EDT [facility] Anion Gap 7 3 - 11 LAB CHEMISTRY METHOD 07/08/2025 7:54 PM EDT [facility] Glucose 81 70 - 100 mg/dL LAB CHEMISTRY METHOD 07/08/2025 7:54 PM EDT [facility] BUN 8 5 - 25 mg/dL LAB CHEMISTRY METHOD 07/08/2025 7:54 PM [facility] Creatinine 0.81 0.50 - 1.10 mg/dL LAB CHEMISTRY METHOD 07/08/2025 7:54 PM [facility] eGFR 84 >=60 mL/min/1. 73m2 LAB CHEMISTRY METHOD 07/08/2025 7:54 PM [facility] Comment:Calculation based on the Chronic Kidney Disease Epidemiology Collaboration (CKD-EPI) equation refit without adjustment for race. BUN/Creatinine Ratio 9.9 LAB CHEMISTRY METHOD 07/08/2025 7:54 PM [facility] Calcium 9.8 8.5 - 10.5 mg/dL LAB CHEMISTRY METHOD 07/08/2025 7:54 PM [facility] AST (SGOT) 23 10 - 42 unit/L LAB CHEMISTRY METHOD 07/08/2025 7:54 PM [facility] ALT (SGPT) 29 10 - 60 unit/L LAB CHEMISTRY METHOD 07/08/2025 7:54 PM [facility] Alkaline Phosphatase 102 42 - 121 unit/L LAB CHEMISTRY METHOD 07/08/2025 7:54 PM [facility] Total Protein 6.8 6.0 - 8.0 g/dL LAB CHEMISTRY METHOD 07/08/2025 7:54 PM [facility] Albumin 4.0 3.2 - 5.0 g/dL LAB CHEMISTRY METHOD 07/08/2025 7:54 PM [facility] Total Bilirubin 0.5 0.0 - 1.4 mg/dL LAB CHEMISTRY METHOD 07/08/2025 7:54 PM [facility] Blood Venous blood specimen / Unknown Venipuncture / Unknown 07/08/2025 7:06 PM EDT 07/08/2025 7:15 PM EDT us Juan F Doshi MD LAB BLOOD ORDERABLES Final Result [facility] [address] [place] [address], * COLONOSCOPY Anesthesia - MAC; [facility] ENDOSCOPY (06/05/2025 12:23 PM EDT) Anatomical Region [...] previously scheduled. Narrative 06/05/2025 12:27 PM EDT [facility] GI Patient Name: María Phillips [...] verified by the physician, the nurse, the water pump servicer and the deployment technician in the pre-procedure area in the [...] not prolapse). Procedure Code(s): --- Professional --- 99507, Colonoscopy, flexible; with biopsy, single or multiple Diagnosis Code(s): --- Professional --- R19.7, Diarrhea, unspecified CPT copyright 2020 [employer]. All rights reserved. The codes documented in this report are preliminary and upon head of advertising review may be revised to meet current compliance requirements. Melba Bunn MD 06/05/2025 12:27:19 PM This report has been signed electronically.Melba Bunn MD Number of Addenda: 0 Note Initiated On: 06/05/2025 11:57 AM Scope Withdrawal Time: 0 hours 6 minutes 22 seconds Scope In: 12:10:33 PM Scope Out: 12:23:27 PM Endoscopy Department at [facility] - [address] [place] [phone] Procedure Note Melba Bunn MD - 06/05/2025 [facility] GI Patient Name: María Phillips [...] the physician, the nurse, theanesthetist and the deployment technician in the pre-procedure area in the [...] not prolapse). Procedure Code(s): --- Professional --- 34295, Colonoscopy, flexible; with biopsy, singleor multiple Diagnosis Code(s): --- Professional --- R19.7, Diarrhea, unspecified CPT copyright 2020 [employer]. All rights reserved. The codes documented in this report are preliminary and upon head of advertising reviewmay be revised to meet current compliance requirements. Melba Bunn MD 06/05/2025 12:27:19 PM This report has been signed electronically.Melba Bunn MD Number of Addenda: 0 Note Initiated On: 06/05/2025 11:57 AM Scope Withdrawal Time: 0 hours 6 minutes 22 seconds Scope In: 12:10:33 PM Scope Out: 12:23:27 PM Endoscopy Department at [facility] - [address] [place] [phone] IMPRESSION: - The examined portion of the [...] year. Mammo Location: [facility], [address] [place] [address], [id number], . -------- FINAL REPORT -------- Dictated By: Stefani Zamora Dictated Date: 02/06/2025 09:43 ET Assigned Physician: Stefani Zamora Reviewed and Electronically Signed By: Stefani Zamora Signed Date: 02/06/2025 09:45 ET Workstation ID: [id number] Transcribed By: Self Edit Transcribed Date: 02/06/2025 [...] year. Mammo Location: [facility], [address] [place] [address], [id number], . -------- FINAL REPORT -------- Dictated By: Stefani Zamora Dictated Date: 02/06/2025 09:43 ET Assigned Physician: Stefani Zamora Reviewed and Electronically Signed By: Stefani Zamora Signed Date: 02/06/2025 09:45 ET Workstation ID: [id number] Transcribed By: Self Edit Transcribed Date: 02/06/2025 09:43 ET Araceli BOOTHE IMG BI PROCEDURES Final Result * Lipid panel with reflex to direct LDL (10/28/2024 2:36 PM EST) Cholesterol 196 0 - 200 mg/dL LAB CHEMISTRY METHOD 10/28/2024 4:17 PM EST [facility] Triglycerides 51 0 - 150 mg/dL LAB CHEMISTRY METHOD 10/28/2024 4:17 PM EST [facility] HDL 111 >=40 mg/dL LAB CHEMISTRY METHOD 10/28/2024 4:17 PM EST [facility] LDL Calculated 75 0 - 100 mg/dL LAB CHEMISTRY METHOD 10/28/2024 4:17 PM EST [facility] VLDL Cholesterol Corby 10.2 mg/dL LAB CHEMISTRY METHOD 10/28/2024 4:17 PM EST [facility] Non HDL Chol. (LDL+VLDL) 85 <145 mg/dL LAB CHEMISTRY METHOD 10/28/2024 4:17 PM EST [facility] Chol/HDL Ratio 1.8 0.0 - 4.4 LAB CHEMISTRY METHOD 10/28/2024 4:17 PM EST [facility] Blood Venous blood specimen / Unknown Venipuncture / Unknown 10/28/2024 2:36 PM EST 10/28/2024 3:06 PM EST Araceli [facility] LAB BLOOD ORDERABLES Fin al Result [facility] [address] [place] [address], [place] [phone] * HIV Screening (05/20/2024) Pathologist [facility] HIV Screening abstracted Historical Provider HEALTH MAINTENANCE Final Result * Hepatitis C Screening (05/20/2024) Pathologist [facility] Hepatitis C Screening abstracted Historical Provider HEALTH MAINTENANCE Final Result * Cervical Cancer Screening: HPV (07/20/2023) [facility] Cervical Cancer Screening: HPV no interpreta tion,abstr acted Historical Provider HEALTH MAINTENANCE Final Result from Last 3 Months or Most Recently Relevant to Health Maintenance Insurance [facility] Advance Directives * Full Code - Default [...] currently active code status orders. Care Teams Mold Sander Relationship Specialty Start Date End Date Araceli Augustin PA [address] [place] [address] [phone] PCP - General 11/20/24
--- OUTSIDE RECORDS SUMMARY | 2025-09-26 15:23 | XMS_ITS | Encounter Summary ---
Author Organization [facility] Address [address] [place] [address] Care Team Providers Care Compounding Scaler Name Role Phone Araceli Augustin Primary Care Provider + Reason for Visit * Reason Onset Date Comments consult 09/24/2025 Encounter Details Date Type Department Care Team ([facility] st Contact Info) Description 09/24/2025 Telephone Gastroenterology - [place] [facility] [address] [facility] [address] [place] [address] Melba Bunn MD [address] [facility] [address] [place] [address] Social History Tobacco Use Types Packs/Day Years [...] documented in this encounter Progress Notes * Rebecca Candelario - 09/24/2025 11:14 AM EST Referral received from [facility] for epigastric abdominal pain. Reached out to pt and offered to schedule an office visit with our next available appt in May. Pt stated she did not want to schedule an office visit. She states it's urgent and needs something sooner. I informed her we do not have anything sooner but is more than welcome to call our office and see if we have any cancellations. Pt asked to speak with the office manger, due to Tammi being in a meeting I let her know I will send a message. Referral packet scanned in media. documented in this encounter Plan of Treatment Not on file documented as of this encounter Goals Goal Patient Goal Type Associated Problems Recent Progress Patient-Stated? Author OT 6-8 visits General No change(2024 4:47 PM EST) No Nichelle Milian, OT Note: 1> Indep HEP (splint weaning, ROM, pain manage, eventual strength) 09/11 Ongoing 2. Dominant R podiatric technician strength at least 35# (vs 20initial, vs [...] on filedocumented in this encounter Care Teams Compounding Scaler Relationship Specialty Start Date End Date Araceli Augustin PA [address] [place] [phone] PCP - General 11/20/24 documented as of this encounter
--- OUTSIDE RECORDS SUMMARY | 2025-09-26 15:23 | XMS_ITS | Encounter Summary ---
Author Organization [facility] Address [address] [place] [address] [place] [phone] Phone Care Team Providers Care Credentialing Specialist Name Role Phone Vee Allan MD Primary Care Pr ovider Encounter Details Date Type Department Care Team (Late st Contact Info) Description 10/08/2020 Ancillary Orders [facility] Out[facility] [address] [facility], 1st Floor, [address] [place] [address] Finn Bone MD [address] [place] [id number] [email or web address] Hand joint pain Social History Tobacco Use [...] hand documented in this encounter Care Teams Credentialing Specialist Relationship Specialty Start Date End Date Vee Allan MD [address] [place] [phone] PCP - General Internal Medicine 09/01/20 documented as of this encounter Additional Source Comments The information contained in this document represents components of the legal health record. It is not the complete legal health record.[facility]
--- OUTSIDE RECORDS SUMMARY | 2025-09-26 15:24 | XMS_ITS | Clinical Summary ---
Author Organization [facility] Address [address] [place] [address] Care Team Providers Care Sports Management Professor Name Role Phone Vee Allan MD Primary [...] age to complete this topic Care Teams Sports Management Professor Relationship Specialty Start Date End Date Vee Allan MD PCP - General Internal Medicine 12/05/19
--- OUTSIDE RECORDS SUMMARY | 2025-09-26 15:24 | XMS_ITS | Continuity of Care Document ---
Author Organization [facility] [address] [facility] [address] [place] [address] Phone [phone] Care Team Providers Care Streetcar Motorman Name Role Phone Vee Queen M.D Care Team Informa tijolanta Beverage Steward [phone] Problems Active Problems Provider Date Anxiety Eric [...] Medications SIG Qnty Indications Ordering Provider Date [id number] Tablets 1 tabs by mouth at 11pm 1tabs Eric Shah M.D. 12/01/2022 [id number] Capsules Take 1 Capsule By Mouth 2 Times A Day Terence Olvera MD [id number] g TBPK follow package directions Unknown Vital Signs Date Vital Result Comment 12/01/2022 11:00am BP Systolic 130 mmHg BP Diastolic 70 mmHg Heart Rate 72 /min Height 64 inches 5'4 Weight 185.00 lb BMI (Body Mass Index) 31.8 kg/m2 Results Test Acquired Date Facility Test Result H/L Range N ote Cortisol 01/20/2023 [facility] Refer ce Lab Cortisol 0.6 g/dL 1 Cortisol 01/06/2023 [facility] Refer ce Lab Cortisol <pending> Cortisol 01/05/2023 [facility] Referen ce Lab Cortisol 5.3 g/dL 2 Free T4 01/05/2023 [facility] Referen ce Lab Free T4 0.98 ng/dL (0.70-1.80) [facility] 0.52 uIU/mL (0.4-4.2) Free T4 01/04/2023 [facility] Referen ce Lab Free T4 <pending> TSH 01/04/2023 [facility] ce Lab TSH <pending> 1 Reference [...]
--- OUTSIDE RECORDS SUMMARY | 2025-09-26 15:24 | XMS_ITS | Patient Health Record ---
Author Organization [facility] [address] Address [address] [place] [address] Care Team Providers Care Area Director Name Role Phone IKER ROBLERO Unavailable [phone] MILESCHINO CHRIS Unavailable [phone] Sneha Holden Unavailable [phone] Allergies Allergen (clinical drug ingredient) Drug/Non Drug Allergy documented on EMR Reaction Allergy Type Onset Date Status Macrolides and Ketolides hives Drug Allergy Active Results Component Value Reference Range Flag Notes XR FLUORO UP TO 1 HOUR Reviewed date:03/11/2025 11:47:24 AM Interpretation: Performing Lab: Notes/Report: Note See Note [facility], a member of [facility] Patient Name: MARÍA PHILLIPS Date of : 1965 Reason for Exam: pain Exam Date: 03/11/2025 [id number] EST Report Status: Final Ordering Provider: DAVID [...] Signed Date: 025 11:03 ET Workstation ID: [id number] Transcribed By: Self Edit Transcribed Date: 03/11/2025 11:02 ET HEMOGLOBIN A1C Reviewed date:05/06/2025 03:59:06 PM [...] Total Bilirubin 0.4 0.0-1.4 mg/dL THYROID STIMULATING IMMUNOGL OBULIN Reviewed date:07/29/2025 07:58:42 [...] 0.11 to 0.39 IU/L. Test performed at [facility], [address] , [place] [address] Krystina Austin MD, PhD - [address] [place] HEPATOBILIARY SYSTEM IMAG ING Reviewed date:05/15/2025 03:07:20 PM Interpretation: Performing Lab: Notes/Report: Note See Note [facility], a member of [employer] Patient Name: MARÍA PHILLIPS Date of : 1965 Reason for Exam: Abdominal pain, upper, recurrent, post cholecystectomy Exam Date: 05/15/2025 [id number] EST Report Status: Final Ordering Provider: ALEXEI [...] Normal hepatobiliary scintigraphy status [place] ([id number]) -------- FINAL REPOR T -------- Dictated By: Dayami Walker i Dictated Date: 05/15/2025 11:46 ET Assigned Physician: Dayami Diehl Reviewed and Electronically Signed By: Dayami Diehl Signed Date: 025 11:48 ET Workstation ID: [id number] Transcribed By: Self Edit Transcribed Date: 05/15/2025 11:46 ET XR FLUORO UP TO 1 HOUR Reviewed date:02/04/2025 05:11:16 PM Interpretation: Performing Lab: Notes/Report: Note See Note [facility], a member of [employer] Patient Name: MARÍA PHILLIPS Date of : 1965 Reason for Exam: pain Exam Date: 02/04/2025 [id number] EST Report Status: Final Ordering Provider: DAVID [...] Signed Date: 025 12:53 ET Workstation ID: [id number] Transcribed By: Self Edit Transcribed Date: 02/04/2025 12:51 ET HELICOBACTER PYLORI ANTIGEN, STOOL Reviewed date:05/13/2025 04:03:38 PM Interpretation: Performing Lab: Notes/Report: Helicobacter Pylori Ag DETECTED Not detected A This test was performed at [facility] using a chemiluminescent immunoassay intended [...] Food and Drug Administration. Test performed at [facility] [place] [address] Krystina Austin MD, PhD - [address] BORRELKAROLINE BURGDORFERI ANTIBOD Y Reviewed date:12/06/2024 12:06:22 PM Interpretation: Performing Lab: Notes/Report: Lyme Ab Negative Negative No laboratory evidence of infection with B. burgdorferi (Lyme disease). Negative results may occur in patients recently infected (<=14 days) with B. burgdorferi. If recent infection is suspected, repeat testing on a new sample collected in 7-14 days is recommended. FERRITIN Reviewed date:03/05/2025 07:31:08 PM Interpretation: Performing Lab: Notes/Report: Ferritin 58 8-252 ng/mL US HEAD NECK SOFT TISSUE Reviewed date:02/10/2025 05:04:59 PM Interpretation: Performing Lab: Notes/Report: Note See Note [facility], a member of [facility] Patient Name: MARÍA PHILLIPS Date of : 1965 Reason for Exam: ENLARGED LYMPHNODE Exam Date: 02/08/2025 [id number] EST Report Status: Final Ordering Provider: CHINO [...] Signed Date: 025 15:55 ET Workstation ID: [id number] Transcribed By: Self Edit Transcribed Date: 02/08/2025 15:52 ET XR ESOPHAGRAM Reviewed date:01/01/2025 09:27:26 AM Interpretation: Performing Lab: Notes/Report: Note See Note [facility], a member of [facility] Patient Name: MARÍA PHILLIPS Date of : 1965 Reason for Exam: DYSPHAGIA Exam Date: 12/26/2024 [id number] EST Report Status: Final Ordering Provider: BARBARA MORRISSEY PCP: IKER ROBLERO FINDINGS: Double contrast esophagram performed. COMPARISON: Esophagr am March 04, 2022 HISTORY: Patient is a 59-year-old female with history of globus sensation. Epigastric pain. Web Content Director radiographs: 1 view chest radiograph demonstrates cardiac [...] Signed Date: 025 08:28 ET Workstation ID: [id number] Transcribed By: Self Edit Transcribed Date: 12/26/2024 13:36 ET Resident/PA/RN OBGYN: Lidia Godinez FOLATE Reviewed date:03/05/2025 07:31:03 PM Interpretation: Performing [...] See Note [facility], a member of [employer] Patient Name: MARÍA PHILLIPS Date of : 1965 Reason for Exam: OTHER Exam Date: 11/18/2024 [id number] EST Report Status: Final Ordering Provider: IKER [...] [place] ([id number]) -------- FINAL REPOR T -------- Dictated By: Dayami Walker i Dictated Date: 11/19/2024 13:40 ET Assigned Physician: Dayami Diehl Reviewed and Electronically Signed By: Dayami Diehl Signed Date: 025 13:45 ET Workstation ID: [id number] Transcribed By: Self Edit Transcribed Date: 11/19/2024 13:40 ET MG MAMMO DIGITAL SCREENING W HERACLIO BILTONIA Reviewed date:02/06/2025 11:57:46 AM Interpretation: Performing Lab: Notes/Report: Note See Note [facility], a member of [employer] Patient Name: MARÍA PHILLIPS Date of : 1965 Reason for Exam: SCREENING Exam Date: 02/05/2025 [id number] EST Report Status: Final Ordering Provider: IKER ROLBERO PCP: IKER ROBLERO CLINICAL: 59 years o [...] is recommended in 1 year. Mammo Location: [facility] er For Mammography at [facility], [address] [place] [address], [id number], . -------- FINAL REPOR T -------- Dictated By: Stefani Zamora Dictated Date: 02/06/2025 09:43 ET Assigned Physician: Stefani Zamora Reviewed and Electronically Signed By: Stefani Zamora Signed Date: 09:45 ET Workstation ID: [id number] Transcribed By: Self Edit Transcribed Date: 02/06/2025 09:43 ET THYROID STIMULATING HORMONE WITH REFLEX TO FREE T4 AND FREE T3 Reviewed date:03/06/2025 07:35:25 AM Interpretation: Performing Lab: Notes/Report: TSH 1.43 0.40-4.00 mcIU/mL URINALYSIS WITH REFLEX MICRO SCOPIC AND CULTURE Reviewed date:01/21/2025 02:02:02 PM Interpretation: Performing Lab: Notes/Report: Specific [place] Urine 1.034 1.003-1.030 H pH, Urine 6.5 [...] 20 Reviewed date:02/11/2025 07:42:47 AM Interpretation: Performing Lab:[facility], [address] [place] [address], Phone - [phone], Director - [facility] Notes/Report: and Drug Administration. by [facility]. It has not been cleared or approved by the Food was developed and its performance characteristics determined Test(s) 425268-Ljii-Vd-3 Ab (RDL) Anti-La (SS-B) Ab (RDL) <20 <20 Units Negative: <20 Weak Positive: 20-39 Moderate Positive: 40-80 Strong Positive: >80 Anti-Sm Ab (RDL)-792752 Reviewed date:02/11/2025 07:42:50 AM Interpretation: Performing Lab:[facility], [address] , [place], Phone - [phone], Director - [facility] Notes/Report: Test(s) 823758-Hdtv-Dr-8 Ab (RDL) was developed and its performance characteristics determined by [facility]. It has not been cleared or approved by the Food and Drug Administration. Anti-Sm Ab (RDL) <20 <20 Units Negative: <20 Weak Positive: 20-39 Moderate Positive: 40-80 Strong Positive: >80 Anti-Ro (SS-A) Ab (RDL)-5200 10 Reviewed date:02/11/2025 07:42:55 AM Interpretation: Performing Lab:[address], Phone - [phone], [facility] Notes/Report: Test(s) 917147-Wrwg-Pc-1 Ab (RDL) was developed and its performance characteristics determined by [facility]. It has not been cleared or approved by the Food and Drug Administration. Anti-Ro (SS-A) Ab (RDL) <20 <20 Units Negative: <20 Weak Positive: 20-39 Moderate Positive: 40-80 Strong Positive: >80 Anti-Mi-2 Ab (RDL)-234749 Reviewed date:02/11/2025 07:42:59 AM Interpretation: Performing Lab:[address], Phone - [phone], [facility] Notes/Report: Test(s) 881052-Mice-Qx-8 Ab (RDL) was developed and its performance characteristics determined by [facility]. It has not been cleared or approved by the Food and Drug Administration. Anti-Mi-2 Ab (RDL) Negative Negative TSH Rfx on Abnormal to Free T4-437976 Reviewed date:07/15/2025 03:58:09 PM Interpretation: Performing Lab:[address], Phone - [phone], [facility] Notes/Report: TSH 0.436 0.450-4.500 uIU/mL L T4,Free (Direct) 1.14 0.82-1.77 ng/dL Comp. Metabolic Panel (14)-3 49246 Reviewed date:07/15/2025 08:25:45 AM Interpretation: Performing Lab:[address], Phone - [phone], [facility] Notes/Report: Glucose 75 70-99 mg/dL BUN 9 [...] 22 0-32 IU/L Comp. Metabolic Panel (14)-3 Reviewed date:02/11/2025 07:43:25 AM Interpretation: Performing Lab:[facility], [address] [place] [address], [place], Phone - [phone], Director - [facility] Notes/Report: Test(s) 126182-Ivzn-Fe-0 Ab (RDL) was developed and its performance characteristics determined by [facility]. It has not been cleared or approved [...] 0-40 IU/L ALT (SGPT) 13 0-32 IU/L Zrex-Df-0-294405 Reviewed date:02/11/2025 07:43:02 AM Interpretation: Performing Lab:[facility] [address], Phone - [phone], Director - [facility] Notes/Report: Test(s) 730695-Xfbt-Mk-2 Ab (RDL) was developed and its performance characteristics determined by [facility]. It has not been cleared or approved by the Food and Drug Administration. Anti-Lakisha-1 <0.2 0.0-0.9 AI Creatine Kinase (CK), MB-120 816 Reviewed date:02/11/2025 07:43:06 AM Interpretation: Performing Lab:[facility] [address], Phone - [phone], Director [facility] Notes/Report: Test(s) 534910-Kybo-Qv-7 Ab (RDL) was developed and its performance characteristics determined by [facility]. It has not been cleared or approved by the Food and Drug Administration. Creatine Kinase (CK), MB 1.4 0.0-5.3 ng/mL C-Reactive Protein, Cardiac- 757768 Reviewed date:02/11/2025 07:43:09 AM Interpretation: Performing Lab:[facility] [address], Phone - [phone], [facility] Notes/Report: Test(s) 745098-Dpvh-Ai-9 Ab (RDL) was developed and its performance characteristics determined by [facility]. It has not been cleared or approved by the Food and Drug Administration. C-Reactive Protein, Cardiac 1.34 0.00-3.00 mg/L Relative Risk for Future Cardiovascular Event Low <1.00 Average 1.00 - 3.00 High >3.00 Anti-dsDNA Antibodies-645331 Reviewed date:02/11/2025 07:43:13 AM Interpretation: Performing Lab:[facility], Phone - [phone], Director - [facility] Notes/Report: Test(s) 061164-Dsbf-At-3 Ab (RDL) was developed and its performance characteristics determined by [facility]. It has not been cleared or approved by the Food and Drug Administration. Anti-DNA (DS) Ab Qn 1 0-9 IU/mL Negative <5 Equivocal 5 - 9 Positive >9 Complement C3, Serum-940400 Reviewed date:02/11/2025 07:43:16 AM Interpretation: Performing Lab:[facility], Phone - [phone], Director - [facility] Notes/Report: Test(s) 160305-Wiag-Fh-4 Ab (RDL) was developed and its performance characteristics determined by [facility]. It has not been cleared or approved by the Food and Drug Administration. Complement C3, Serum 119 82-167 mg/dL Sedimentation Rate-[place] n-818776 Reviewed date:02/11/2025 07:42:43 AM Interpretation: Performing Lab:[facility], Phone - [phone], Director - [facility] Notes/Report: Test(s) 405642-Cxxt-Qy-3 Ab (RDL) was developed and its performance characteristics determined by [facility]. It has not been cleared or [...] assigned Comprehensive Metabolic Panel (14), Test Code #758801 to this request. If this is not the testing you wished to receive on this specimen, please contact the [facility]Technical Services Department to clarify the test order. We appreciate your business. CBC With Differential/Platel et-126436 Reviewed date:02/11/2025 07:43:32 AM Interpretation: Performing Lab:[address] , [place], Phone - [phone], Director - [facility] Notes/Report: Test(s) 382917-Gksp-Kh-6 Ab (RDL) was developed and its performance characteristics determined by [facility]. It has not been cleared or approved [...] (Abs) 0.0 0.0-0.1 x10E3/uL CBC With Differential/Platel et-681197 Reviewed date:07/15/2025 08:25:37 AM Interpretation: Performing Lab:Shar Luzitan, Edita , [place], Phone - [phone], Director - [facility] Notes/Report: WBC 7.7 3.4-10.8 [...] % Immature Grans (Abs) 0.0 0.0-0.1 x10E3/uL Ferritin-696897 Reviewed date:07/15/2025 08:25:45 AM Interpretation: Performing Lab:[address], Phone - [phone], Director - [facility] Notes/Report: Ferritin 85 15-150 ng/mL Complement C4, Serum-331546 Reviewed date:02/11/2025 07:43:19 AM Interpretation: Performing Lab:[address], Phone - [phone], Director - [facility] Notes/Report: Test(s) 703791-Aiyl-Cy-3 Ab (RDL) was developed and its performance characteristics determined by [facility]. It has not been cleared or approved by the Food and Drug Administration. Complement C4, Serum 18 12-38 mg/dL Iron and TIBC-347136 Reviewed date:07/15/2025 03:58:09 PM Interpretation: Performing Lab:[address], Phone - [phone], Director - [facility] Notes/Report: Iron Bind.Cap.(TIBC) 371 250-450 ug/dL UIBC 318 131-425 ug/dL Iron 53 27-159 ug/dL Iron Saturation 14 15-55 % L EKG Reviewed date:09/16/2025 09:19:30 AM Interpretation: Performing [...] NO T ANTHRACIS A Report Susceptibility Report XR SHOULDER 2+ VIEWS BILAT Reviewed date:01/08/2025 05:02:44 PM Interpretation: Performing Lab: Notes/Report: Note See Note [facility], a member of [facility] Patient Name: MARÍA PHILLIPS Date of : 1965 Reason for Exam: bilateral shoulder pain Exam Date: 01/08/2025 [id number] EST Report Status: Final Ordering Provider: NICHELLE [...] tendinitis and narrowing of subacromial space XR HAND 3+ VIEWS RIGHT Reviewed date:05/15/2025 07:58:11 AM Interpretation: Performing Lab: Notes/Report: Note See Note [facility], a member of [facility] Patient Name: MARÍA PHILLIPS Date of : 1965 Reason for Exam: pain Exam Date: 05/14/2025 [id number] EST Report Status: Final Ordering Provider: OLAF [...] osteoarthritis of the first carpal-metacarpal articulation. Code 98499, 57569 -------- FINAL REPOR T -------- Dictated By: Mauro Wright Dictated Date: 05/15/2025 07:41 ET Assigned Physician: Mauro Wright Reviewed and Electronically Signed By: Mauro Wright Signed Date: 025 07:44 ET Workstation ID: [id number] Transcribed By: Self Edit Transcribed Date: 05/15/2025 07:41 ET CULTURE WOUND DEEP Reviewed date:07/21/2025 01:17:57 PM [...] unit/L XR WRIST 3+ VIEWS RIGHT Reviewed date:05/15/2025 07:58:21 AM Interpretation: Performing Lab: Notes/Report: Note See Note [facility], a member of [facility] Patient Name: MARÍA PHILLIPS Date of : 1965 Reason for Exam: rm Exam Date: 05/14/2025 [id number] EST Report Status: Final Ordering Provider: OLAF KAPLAN PCP: IKER ROBLERO Please see combined report with radiographs of the right hand. -------- FINAL REPOR T -------- Dictated By: Mauro Wright Dictated Date: 05/15/2025 07:41 ET Assigned Physician: Mauro Wright Reviewed and Electronically Signed By: Mauro Wright Signed Date: 07:41 ET Workstation ID: [id number] Transcribed By: Self Edit Transcribed Date: 05/15/2025 07:[address] CHEST WO CONTRAST Reviewed date:06/03/2025 12:20:20 PM Interpretation: Performing Lab: Notes/Report: Note See Note [facility], a member of [facility] Patient Name: MARÍA PHILLIPS Date of : 1965 Reason for Exam: PULMONARY NODULE Exam Date: 05/28/2025 [id number] EST Report Status: Final Ordering Provider: IKER ROBLERO PCP: IKER ROBLERO History: Pulmonary nodule follow-up. Comparison: 12/05/24 Technique: Helical volumetric imaging of the thorax was performed without IV contrast. DLP: 279.09 mGy/cm Paraytecer Iterative reconstruction technique Findings: The trachea and [...] follow-up recommended. 2. No developing thoracic lymphadenopathy[place] ([id number]) -------- FINAL REPOR T -------- Dictated By: Dayami Walker i Dictated Date: 06/02/2025 09:00 ET Assigned Physician: Dayami Diehl Reviewed and Electronically Signed By: Dayami Diehl Signed Date: 09:13 ET Workstation ID: [id number] Transcribed By: Self Edit Transcribed Date: 06/02/2025 09:00 ET TISSUE EXAM Reviewed date:07/20/2025 07:42:46 PM Interpretation: [...] is preferred specimen for evaluating avascular necrosis. TISSUE EXAM Reviewed date:06/08/2025 11:10:45 PM Interpretation: [...] formalin fixed and paraffin embedded. THYROID STIMULATING HORMONE WITH REFLEX TO FREE T4 AND FREE T3 Reviewed date:07/24/2025 02:40:06 PM Interpretation: Performing Lab: Notes/Report: TSH 1.20 0.40-4.00 mcIU/mL URINALYSIS WITH REFLEX MICRO SCOPIC AND CULTURE Reviewed date:03/24/2025 07:44:34 AM Interpretation: Performing Lab: Notes/Report: Specific [place] Urine 1.010 1.003-1.030 pH, Urine 8.0 5.0-8.0 [...] Performing Lab: Notes/Report: TSH 0.79 0.40-4.00 mcIU/mL THYROXINE FREE Reviewed date:07/24/2025 02:40:06 PM Interpretation: Performing Lab: Notes/Report: Free T4 1.16 0.70-1.80 ng/dL CBC WITH AUTO DIFFERENTIAL Reviewed date:03/24/2025 07:49:47 [...] Immature Granulocytes Absolute 0.05 0.00-0.03 K/mcL H XR WRIST 3+ VIEWS RIGHT Reviewed date:09/16/2025 09:19:30 AM Interpretation: Performing Lab: Notes/Report: See Note [facility], a member of [facility] AP, lateral, oblique of the right wrist [...] with flattening and sclerosis of the lunate CT SINUSES WO CONTRAST Reviewed date:01/24/2025 12:18:38 PM Interpretation: Performing Lab: Notes/Report: Note See Note [facility], a member of [employer] Patient Name: MARÍA PHILLIPS Date of : 1965 Reason for Exam: deviated septum,sinonasal polyp Exam Date: 01/24/2025 [id number] EST Report Status: Final Ordering Provider: EDMUND [...] Signed Date: 025 08:42 ET Workstation ID: [id number] Transcribed By: Self Edit Transcribed Date: 01/24/2025 08:15 ET CALPROTECTIN, STOOL Reviewed date:05/12/2025 05:08:37 PM Interpretation: Performing Lab: Notes/Report: Calprotectin, Fecal 16.5 <50 mcg/g <50 mcg/g Normal 50 - 120 mcg/g Borderline >120 mcg/g Abnormal Borderline results suggest repeat testing in 4 to 6 weeks. Test performed at [facility], [address] , [place] [address] Krystina Austin MD, PhD - [address] HELICOBACTER PYLORI ANTIGEN, STOOL Reviewed date:08/05/2025 03:02:36 PM Interpretation: Performing Lab: Notes/Report: Helicobacter Pylori Ag Not detected Not detected This test was performed at [facility] using a chemiluminescent immunoassay intended [...] Food and Drug Administration. Test performed at [facility], [address] , [place] [address] Krystina Austin MD, PhD - [address] GASTROINTESTINAL PATHOGENS DARNELL STUDY Reviewed date:05/08/2025 03:43:25 [...] NECESSARY. XR KNEE 4+ VIEWS BILAT Reviewed date:08/19/2025 08:27:06 AM Interpretation: Performing Lab: Notes/Report: Note See Note [facility], a member of [employer] Patient Name: MARÍA PHILLIPS Date of : 1965 Reason for Exam: bilateral knee pain Exam Date: 08/14/2025 [id number] EST Report Status: Final Ordering Provider: CELIA [...] not progressed from prior x-rays obtained 01/22/2025. XR KNEE 4+ VIEWS BILAT Reviewed date:01/27/2025 08:06:07 AM Interpretation: Performing Lab: Notes/Report: Note See Note [facility], a member of [facility] Patient Name: MARÍA PHILLIPS Date of : 1965 Reason for Exam: ilateral knee pain Exam Date: 01/22/2025 [id number] EST Report Status: Final Ordering Provider: CELIA [...] Interpretation: Performing Lab: Notes/Report: CAMILO Negative Negative RHEUMATOID FACTOR Reviewed date:10/28/2024 04:25:29 PM Interpretation: Performing Lab: Notes/Report: Rheumatoid Factor 152.0 <15.0 I Unit/mL H XR WRIST 3+ VIEWS RIGHT Reviewed date:08/13/2025 08:18:07 AM Interpretation: Performing Lab: Notes/Report: Note See Note [facility], a member of [facility] Patient Name: MARÍA PHILLIPS Date of : 1965 Reason for Exam: right wrist pain Exam Date: 08/12/2025 [id number] EST Report Status: Final Ordering Provider: DUC [...] Impression: Advanced avascular necrosis of the lunate FERRITIN Reviewed date:10/28/2024 04:25:26 PM Interpretation: Performing Lab: Notes/Report: Ferritin 28 8-252 ng/mL US HEAD NECK SOFT TISSUE Reviewed date:01/24/2025 01:16:29 PM Interpretation: Performing Lab: Notes/Report: Note See Note [facility], a member of [facility] Patient Name: MARÍA PHILLIPS Date of : 1965 Reason for Exam: cervicalgia Exam Date: 01/24/2025 [id number] EST Report Status: Final Ordering Provider: CHINO YBRARA PCP: IKER ROBLERO EXAMINATION: US , RI [...] Signed Date: 025 08:00 ET Workstation ID: [id number] Transcribed By: Self Edit Transcribed Date: 01/24/2025 07:55 ET IRON AND TIBC Reviewed date:10/28/2024 04:25:22 PM [...] 85 <145 mg/dL Chol/HDL Ratio 1.8 0.0-4.4 Reason For Referral Reason [facility] Diagnosis 1 Shoulder pain, unspe cified chronicity, unspecified laterality (M25.519) Referral Organization [facility] [address] Referring Provider First Name IKER Referring Provider Last Name LANCASTER Referring Provider Speciality Preventive Medicine Referred Provider Specialty Orthopedic S urgery General Notes Letitia Cox 025 10:47:57 AM > Referral faxed over to [facility] for Bilateral shoulder pain P. [phone] Referral Priority Routine Reason Sleep Medicine [facility]; sleep study; loud snoring Diagnosis 1 Loud snoring (R06.83 ) Referral Organization [facility] [address] Referring Provider First Name IKER Referring Provider Last Name LANCASTER Referring Provider Speciality Preventive Medicine Referred Provider Specialty Sleep Medici ne General Notes [address] [facility] [address]. [address] [place] (p) [phone], (f) [phone] Clinical Notes Maryann Cox 02:10:39 PM > I called the office and they informed me that they had reached out to the patient and are just waiting for a callback to schedule an appt Referral Priority Routine Reason pain management : ri ght rib pain Diagnosis 1 Rib pain on right si de (R07.81) Referral Organization [facility] [address] Referring Provider First Name IKER Referring Provider Last Name LANCASTER Referring Provider Speciality Preventive Medicine Referred Provider Specialty Pain Medicin e Clinical Notes Zoila Narayanan 04/25 09:57:57 AM > Family [facility], Address: [address] [place] [address], , Fax number: , Maryann Cox 06/17/2025 02:17:36 PM > The patient was scheduled for 06/05 but she no showed and has not rescheduled yet Referral Priority Routine Reason [facility]; easy bruising Diagnosis 1 Easy bruising (R23.3 ) Referral Organization [facility] [facility] [address] Referring Provider First Name IKER Referring Provider Last Name LANCASTER Referring Provider Speciality Preventive Medicine Referred Provider Specialty Dermatology General Notes [address] Faustino. 106, (p) [phone], (f) [phone] Clinical Notes Caren Narayanan 08:43:03 AM > referral faxed with notes Referral Priority Routine Reason Dr. Hoffman Diagnosis 1 Pulmonary nodule (R9 1.1) Diagnosis 2 Centrilobular emphys christine (J43.2) Referral Organization [facility] [address] Referring Provider First Name IKER Referring Provider Last Name LANCASTER Referring Provider Speciality Preventive Medicine Referred Provider Specialty Pulmonology General Notes XAVIER VILLANUEVA 06/09 08:34:07 AM > Referral faxed, Dr Hoffman - Pulmonology and Sleep Medicine, [address] [place] [address], , Clinical Notes Kenny Maryann 10/2025 02:17:04 PM > The patient was scheduled for 06/05 but she no showed and has not rescheduled yet Referral Priority Routine Reason [facility] Diagnosis 1 Chronic pain syndrom e (G89.4) Diagnosis 2 Cervical pain (M54.2 ) Referral Organization [facility] [address] Referring Provider First Name IKER Referring Provider Last Name LANCASTER Referring Provider [facility] Preventive Medicine Referred Provider Specialty Orthopedic S urgery General Notes XAVIER VILLANUEVA 06/26 08:13:11 AM > Referral has been faxed, [facility], [address] [place] [id number], , Clinical Notes Maryann Cox 02:25:30 PM > I called the office, and they informed me they had reached out to the patient multiple times with no response. I then spoke with the patient, who stated she was not aware a referral had been sent. She said she will call the office back Referral Priority Stat Reason Spine Surgery - [facility] Diagnosis 1 Lumbar back pain (M5 4.50) Diagnosis 2 Chronic lumbar radic ulopathy (M54.16) Referral Organization [facility] [address] Referring Provider First Name IKER Referring Provider Last Name LANCASTER Referring Provider [facility] Preventive Medicine Referred Provider Specialty Spinal Cord Injury Medicine General Notes XAVIER VILLANUEVA 07/08 03:54:08 PM > referral has been initiated & faxed, [facility]- Spine Surgery, [address], [address], [place], , Most recent MRI was done at [facility] 01/14/25 Clinical Notes Maryann Cox 01/2025 02:17:15 PM > I called [facility] Spine Surgery, and they are requesting an updated MRI taken within the past year. They asked that we fax it to their office. Once received, they will review the patient's records and contact her to schedule., Maryann Cox 07/17/2025 11:04:32 AM > Scheduled for 07/23 at 1 pm. Pt aware Referral Priority Stat Reason [facility] Gastroenterology Diagnosis 1 Epigastric abdominal pain (R10.13) Referral Organization [facility] [address] Referring Provider First Name IKER Referring Provider Last Name ANNIKA Referring Provider Speciality Preventive Medicine Referred Provider Specialty Gastroentero logy General Notes XAVIER VILLANUEVA 09/24 08:31:39 AM EST > Referral has been faxed, [facility] - Gastroenterology, [facility], [address] [place] [id number], Referral Priority Urgent Medications Medication SIG (Take, Route, Frequency, Duration) Notes Start Date End Date Status Polymyxin B-Trimethoprim 59036-6.1 UNIT/ML Solution 1 drop into affected eye [...] Status W/U Status Risk Notes Problem Hyperkalemia (69352681) Hyperkalemia (E87.5) Active confirmed Problem Chronic pain syndrome (789181842) Chronic pain syndrome (G89.4) Active confirmed Problem Centrilobular emphysema (57262918) Centrilobular emphysema (J43.2) Active confirmed Problem Pulmonary nodule (548495130) Pulmonary nodule (R91.1) Active confirmed Problem Breathing painful (06718169) Rib pain on right side (R07.81) Active confirmed Problem Tremor (58927118) Tremor (R25.1) Active confirm ed Problem Chronic fatigue syndrome (54701461) Chronic fatigue (R53.82) Active confirmed Problem Paresthesia (finding) (44730860) Paresthesias (R20.2) Active confirmed Problem Lumbar radiculopathy (761468350) Chronic lumbar radiculopathy (M54.16) Active confirmed Problem Cervical pain (23606877) Cervical pain (M54.2) Active confirmed Problem Mixed anxiety and depressive disorder (842514980) Depression with anxiety (F41.8) Active confirmed Problem 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 Problem Inactive tuberculosis (finding) (12499714) History of latent tuberculosis (Z86.15) Active confirmed Problem Rheumatoid arthritis (76116338) Rheumatoid arthritis involving multiple sites, unspecified whether rheumatoid factor present (M06.9) Active confirmed Problem Rheumatoid arthritis (03937153) Rheumatoid arthritis involving multiple sites with positive rheumatoid factor (M05.79) Active confirmed Problem Lymphadenopathy (54758073) Lymphadenopathy, axillary (R59.0) Active confirmed Problem Cervical spondylosis (356254437) Cervical spondylosis (M47.812) Active confirmed Problem General weakness (03991340) Generalized weakness (R53.1) Active confirmed Problem 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3 [facility] [address] [address] 11/18/2024 IKER ROBLERO Tremor R25.1 ; Cervi veronica spondylosis M47.812 ; Rock's disease E06.3 ; Pain in right arm M79.601 ; Pain in left arm M79.602 ; History of recent fall Z91.81 ; Rheumatoid arthritis involving multiple sites with positive rheumatoid factor M05.79 ; Slipped rib syndrome M94.0 and Depression with anxiety F41.8 [facility] [address] [address] 01/22/2025 CHINO BIRKS Neck pain on right s angela M54.2 ; Rheumatoid arthritis involving multiple sites with positive rheumatoid factor M05.79 ; Slipped rib syndrome M94.0 ; Rock's disease E06.3 and Depression with anxiety F41.8 [facility] [address] [address] 02/03/2025 CHINO BIRKS Lymphadenopathy, axillary R59.0 ; Rheumatoid arthritis involving multiple sites, unspecified whether rheumatoid factor present M06.9 ; Rock's disease E06.3 ; Slipped rib syndrome M94.0 ; Anxiety, generalized F41.1 and Tendon calcification M65.80 [facility] [address] [address] 03/05/2025 IKER ROBLERO Rib pain on right si de R07.81 ; Annual physical exam Z00.00 ; Chronic fatigue R53.82 ; Hyperkalemia E87.5 ; Slipped rib syndrome M94.0 ; Depression with anxiety F41.8 and Rheumatoid arthritis involving multiple sites with positive rheumatoid factor M05.79 [facility] [address] [address] 03/21/2025 IKER ROBLERO Heart palpitations R00.2 ; Weakness R53.1 and Dyspnea on exertion R06.09 [facility] [address] [address] 04/23/2025 IKER ROBLERO Depression with anxi ety F41.8 ; Heavy alcohol use F10.90 ; Chronic pain syndrome G89.4 ; Slipped rib syndrome M94.0 ; Rheumatoid arthritis involving multiple sites with positive rheumatoid factor M05.79 ; Pulmonary nodule R91.1 ; History of latent tuberculosis Z86.15 and Loud snoring R06.83 [facility] [address] 05/05/2025 IKER ROBLERO Spontaneous ecchymos es R23.3 ; Skin tear of left upper extremity S41.112A ; Irregular bowel habits R19.8 ; Depression with anxiety F41.8 ; Chronic pain syndrome G89.4 and Rheumatoid arthritis involving multiple sites with positive rheumatoid factor M05.79 [facility] [address] [address] 06/18/2025 IKER ROBLERO Chronic pain syndrom e G89.4 ; Cervical pain M54.2 and Recurrent low back pain M54.50 [facility] [address] 09/04/2025 IKER ROBLERO Redness of left eye H57.89 [facility] [address] [address] 10/29/2024 IKER ROBLERO [facility] [address] [address] 11/04/2024 IKER ROBLERO [facility] [address] [address] 11/07/2024 IKER ROBLERO [facility] [address] [address] 11/19/2024 IKER ANNIKA [facility] [address] [place] [address] 12/03/2024 IKER LANCASTER [facility] [address] [place] [address] 12/13/2024 IKER LANCASTER [facility] [address] [place] [address] 12/13/2024 IKER ROBLERO Generalized weakness R53.1 and Paresthesias R20.2 [facility] [address] [place] [address] 12/16/2024 IKER LANCASTER [facility] [address] [place] [address] 12/26/2024 IKER LANCASTER [facility] [address] [place] [address] 12/31/2024 IKER LANCASTER [facility] [address] [place] [address] 01/02/2025 IKER LANCASTER [facility] [address] [place] [address] 01/07/2025 IKER LANCASTER [facility] [address] [place] [address] 01/21/2025 IKER LANCASTER [facility] [address] [place] [address] 01/24/2025 IKER LANCASTER [facility] [address] [place] [address] 02/03/2025 IKER LANCASTER [facility] [address] [place] [address] 02/03/2025 IKER LANCASTER [facility] [address] [place] [address] 02/10/2025 IKER LANCASTER [facility] [address] [place] [address] 03/05/2025 IKER LEDESMAHAM Chronic fatigue R53. 82 ; Elevated lipids E78.5 ; Anemia due to vitamin B12 deficiency, unspecified B12 deficiency type D51.9 and Vitamin D deficiency E55.9 [facility] [address] [place] [address] 03/05/2025 IKER LANCASTER [facility] [address] [place] [address] 03/05/2025 IKER LANCASTER [facility] [address] [place] [address] 03/05/2025 IKER LANCASTER [facility] [address] [place], [place] 03/21/2025 IKER LANCASTER [facility] [address] [place] [address] 03/24/2025 IKER LANCASTER [facility] [address] [place] [address] 04/22/2025 IKER LANCASTER [facility] [address] [place], [place] 04/25/2025 IKER LANCASTER [facility] [address] [place] [address] 05/01/2025 IKER LANCASTER [facility] [address] [place] [address] 05/05/2025 IKER LANCASTER [facility] [address] [place] [address] 05/06/2025 IKER LANCASTER [facility] [address] [place], [place] 05/13/2025 IKER LANCASTER [facility] [address] [place], [place] 05/13/2025 IKER LANCASTER [facility] [address] [place], [place] 06/03/2025 IKER LANCASTER [facility] [address] [place] 06/18/2025 IEKR LANCASTER [facility] [address] [place] [address] 06/19/2025 IKER LANCASTER Cervical pain M54.2 ; Cervical spondylosis M47.812 and Chronic pain syndrome G89.[address] [facility] [address] [place] [address] 06/25/2025 IKER LANCASTER [facility] [address] [place] [address] 07/08/2025 IKER LEDESMAHAM [facility] [address] [place] [address] 07/08/2025 IKER LEDESMAHAM [facility] [address] [place] [address] 07/09/2025 IKER LANCASTER [facility] [address] [place] [address] 07/15/2025 IKER LEDESMAHAM Rock's disease E06.3 [facility] [address] [place] [address] 08/14/2025 IKER LANCASTER [facility] [address] [place] [address] 09/04/2025 IKER LANCASTER [facility] [address] [place] [address] 09/19/2025 IKER LANCASTER [facility] [address] [place] [address] 09/24/2025 IKER LANCASTER [facility] [address] [place] [address] 12/09/2024 IKER LANCASTER [facility] [address] [place] [address] 12/13/2024 IKER LANCASTER [facility] [address] [place] [address] 12/14/2024 IKER LANCASTER [facility] [address] [place] [address] 12/14/2024 IKER LANCASTER [facility] [address] [place] [address] 12/15/2024 IKER LANCASTER [facility] [address] [place] [address] 12/18/2024 IKER LANCASTER [facility] [address] [place] [address] 01/01/2025 IKER LANCASTER [facility] [address] [place] [address] 01/21/2025 IKER LANCASTER [facility] [address] [place] [address] 01/27/2025 [facility] Breast cancer screen ing by mammogram Z12.31 [facility] [address] [place] [address] 03/21/2025 IKER LANCASTER [facility] [address] [place] [address] 04/30/2025 [facility] [address] [place] [address] 05/01/2025 [facility] [address] [place] [address] 05/01/2025 [facility] [address] [place] [address] 06/06/2025 [facility] [address] [place] [address] 06/09/2025 [facility] [address] [place] [address] 06/14/2025 [facility] [address] [place] [address] 06/20/2025 [facility] [address] [place] [address] 06/23/2025 [facility] [address] [place] [address] 06/30/2025 [facility] [address] [place] [address] 07/12/2025 [facility] Adult general medica l exam Z00.00 and Screening for thyroid disorder Z13.29 [facility] [address] [place] [address] 07/15/2025 [facility] [address] [place] [address] 07/16/2025 [facility] [address] [place] [address] 09/04/2025 [facility] [address] [place] [address] 09/22/2025 [facility] [address] [place] [address] 09/22/2025 IKER ANNIKA [facility] [address] [place] [address] 09/22/2025 IKER ANNIKA [facility] [address] [place] [address] 09/23/2025 IKER ANNIKA [facility] [address] [place] [address] 09/23/2025 IKER ANNIKA [facility] [address] [place] [address] 09/23/2025 IKER ANNIKA [facility] [address] [place] [address] 09/23/2025 IKER ANNIKA [facility] [address] [place] [address] 09/23/2025 IKER ANNIKA [facility] [address] [place] [address] 09/23/2025 IKER ANNIKA [facility] [address] [place] [address] 09/23/2025 IKER ANNIKA [facility] [address] [place] [address] 09/24/2025 IKER ANNIKA [facility] [address] [place] [address] 09/26/2025 IKER ANNIKA [facility] [address] [place] [address] 09/26/2025 IKER ANNIKA [facility] [address] [place] [address] 09/26/2025 IKER ANNIKA Assessments Encounter Date Diagnosis (ICD Code) Assessment Notes Treatment Notes Treatment Clinical Notes Section Notes 10/28/2024 Rheumatoid arthritis involving multiple sites, unspecified whether rheumatoid factor present (ICD-10 - M06.9) Maíra is a 59-year-old female with a PMH [...] Patient reports history of RA. Follows with rigging slinger Dr. Clark out of [place]. Has been treated previously with Humira, Enbrel, [...] was diagnosed by Dr. Dubon out of [place], [place]. Taking methocarbamol 750 mg 3 times [...] reviewed. Dictation completed with the use of [employer] voice recognition software, prone to medical misidentifications [...] Patient reports history of RA. Follows with rigging slinger Dr. Clark out of [place]. Has been treated previously with Humira, Enbrel, [...] was diagnosed by Dr. Dubon out of [place], [place]. Taking methocarbamol 750 mg 3 times [...] reviewed. Dictation completed with the use of [employer] voice recognition software, prone to medical misidentifications [...] for 11/20/2024. #Recent fall: Patient seen at [facility] ED 11/02/2024 s/p fall at work. Denied [...] diffuse joint pain and fatigue. Follows with rigging slinger Dr. Clark out of [place], records requested and not yet available for my review. 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 States this was diagnosed by Dr. Dubon out of [place], [place]. Taking methocarbamol 750 mg 3 times [...] reviewed. Dictation completed with the use of [employer] voice recognition software, prone to medical misidentifications [...] for 11/20/2024. #Recent fall: Patient seen at [facility] ED 11/02/2024 s/p fall at work. Denied [...] diffuse joint pain and fatigue. Follows with rigging slinger Dr. Clark out of [place], records requested and not yet available for my review. 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 States this was diagnosed by Dr. Dubon out of [place], [place]. Taking methocarbamol 750 mg 3 times [...] reviewed. Dictation completed with the use of [employer] voice recognition software, prone to medical misidentifications [...] was diagnosed by Dr. Dubon out of [place], [place]. Taking methocarbamol 750 mg 3 times [...] Dictation was accomplished with the use of [employer] voice recognition software, which is prone to [...] was diagnosed by Dr. Dubon out of [place]. Taking methocarbamol 750 mg 3 times [...] Dictation was accomplished with the use of [employer] voice recognition software, which is prone to [...] was diagnosed by Dr. Dubon out of [place]. Taking methocarbamol 750 mg 3 times [...] Dictation was accomplished with the use of [employer] voice recognition software, which is prone to [...] was diagnosed by Dr. Dubon out of [place], [place]. Taking methocarbamol 750 mg 3 times [...] Dictation was accomplished with the use of [employer] voice recognition software, which is prone to [...] rib syndrome: Follows with Dr. Dubon with [facility]. Underwent repair 12/17/2024. #Ventral hernia: Surgical [...] arthritis: + Rheumatoid factor (152). Follows with rigging slinger Dr. Olaf Kaplan out of [place]. Follow-up labs including CAMILO, ESR/CRP, and comprehensive [...] with psychiatric provider Clarice Lara with [facility]. Taking clonazepam 0.5 mg once daily with [...] dysfunction. #Hyperkalemia: Patient reports she was at [facility] ED recently at which time her [...] reviewed. Dictation completed with the use of [employer] voice recognition software, prone to medical misidentifications [...] rib syndrome: Follows with Dr. Dubon with [facility]. Underwent repair 12/17/2024. #Ventral hernia: Surgical [...] arthritis: + Rheumatoid factor (152). Follows with rigging slinger Dr. Olaf Kaplan out of [place]. Follow-up labs including CAMILO, ESR/CRP, and comprehensive [...] with psychiatric provider Clarice Lara with [facility]. Taking clonazepam 0.5 mg once daily with [...] dysfunction. #Hyperkalemia: Patient reports she was at [facility] ED recently at which time her [...] reviewed. Dictation completed with the use of [employer] voice recognition software, prone to medical misidentifications [...] reviewed. Dictation completed with the use of [employer] voice recognition software, prone to medical misidentifications [...] reviewed. Dictation completed with the use of [employer] voice recognition software, prone to medical misidentifications [...] ER follow-up hospital follow-up. María presented to [facility] ED 04/19/2025 with chief complaint of [...] taking any pain medication. Previously followed with crayon painter Dr. Trivedi who provided steroid injections. [...] with added opioid use. WIll refer to crayon painter with goal of establishing safe pain management regimen. #RA: Follows with Olaf Kaplan MD out of [place]. Discussed possibility of chronic pain being related [...] reviewed. Dictation completed with the use of [employer] voice recognition software, prone to medical misidentifications [...] ER follow-up hospital follow-up. María presented to [facility] ED 04/19/2025 with chief complaint of [...] taking any pain medication. Previously followed with crayon painter Dr. Trivedi who provided steroid injections. [...] with added opioid use. WIll refer to crayon painter with goal of establishing safe pain management regimen. #RA: Follows with Olaf Kaplan MD out of [place]. Discussed possibility of chronic pain being related [...] Patient requesting urgent colonoscopy per recommendation of [facility] surgeon Jewel Dubon. On review of [...] gabapentin TID without symptom improvement. Follows with crayon painter Dr. Trivedi. Historically the patient has [...] reviewed. Dictation completed with the use of [employer] voice recognition software, prone to medical misidentifications [...] Patient requesting urgent colonoscopy per recommendation of [facility] surgeon Jewel Dubon. On review of [...] gabapentin TID without symptom improvement. Follows with crayon painter Dr. Trivedi. Historically the patient has [...] reviewed. 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 Leno recommending cervical spine fusion - patient would like second opinion. MRI lumbar spine obtained 04/18/2024 reveals mild multilevel degenerative changes. Currently, taking gabapentin TID without significant symptom improvement. Follows with crayon painter Dr. Trivedi, orthopedic provider Nichelle Carrillo [...] reviewed. Dictation completed with the use of [employer] voice recognition software, prone to medical misidentifications [...] TID without significant symptom improvement. Follows with crayon painter Dr. Trivedi, orthopedic provider Nichelle Carrillo [...] reviewed. Dictation completed with the use of [employer] voice recognition software, prone to medical misidentifications [...] reviewed. Dictation completed with the use of [employer] voice recognition software, prone to medical misidentifications [...] TID without significant symptom improvement. Follows with crayon painter Dr. Trivedi, orthopedic provider Nichelle Carrillo [...] reviewed. Dictation completed with the use of [employer] voice recognition software, prone to medical misidentifications [...] Patient requesting urgent colonoscopy per recommendation of [facility] surgeon Jewel Dubon. On review of [...] gabapentin TID without symptom improvement. Follows with crayon painter Dr. Trivedi. Historically the patient has [...] reviewed. Dictation completed with the use of [employer] voice recognition software, prone to medical misidentifications [...] reviewed. Dictation completed with the use of [employer] voice recognition software, prone to medical misidentifications [...] ER follow-up hospital follow-up. María presented to [facility] ED 04/19/2025 with chief complaint of [...] taking any pain medication. Previously followed with crayon painter Dr. Trivedi who provided steroid injections. [...] with added opioid use. WIll refer to crayon painter with goal of establishing safe pain management regimen. #RA: Follows with Olaf Kaplan MD out of [place]. Discussed possibility of chronic pain being related [...] reviewed. Dictation completed with the use of [employer] voice recognition software, prone to medical misidentifications [...] rib syndrome: Follows with Dr. Dubon with [facility]. Underwent repair 12/17/2024. #Ventral hernia: Surgical [...] arthritis: + Rheumatoid factor (152). Follows with rigging slinger Dr. Olaf Kaplan out of [place]. Follow-up labs including CAMILO, ESR/CRP, and comprehensive [...] with psychiatric provider Clarice Lara with [facility]. Taking clonazepam 0.5 mg once daily with [...] dysfunction. #Hyperkalemia: Patient reports she was at [facility] ED recently at which time her [...] reviewed. Dictation completed with the use of [employer] voice recognition software, prone to medical misidentifications [...] was diagnosed by Dr. Dubon out of [place], [place]. Taking methocarbamol 750 mg 3 times [...] Dictation was accomplished with the use of [employer] voice recognition software, which is prone to [...] was diagnosed by Dr. Dubon out of [place], [place]. Taking methocarbamol 750 mg 3 times [...] Dictation was accomplished with the use of [employer] voice recognition software, which is prone to [...] for 11/20/2024. #Recent fall: Patient seen at [facility] ED 11/02/2024 s/p fall at work. Denied [...] diffuse joint pain and fatigue. Follows with rigging slinger Dr. Clark out of [place], records requested and not yet available for my review. 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 States this was diagnosed by Dr. Dubon out of [place], [place]. Taking methocarbamol 750 mg 3 times [...] reviewed. Dictation completed with the use of [employer] voice recognition software, prone to medical misidentifications [...] Patient reports history of RA. Follows with rigging slinger Dr. Clark out of [place]. Has been treated previously with Humira, Enbrel, [...] was diagnosed by Dr. Dubon out of [place], [place]. Taking methocarbamol 750 mg 3 times [...] reviewed. Dictation completed with the use of [employer] voice recognition software, prone to medical misidentifications [...] for 11/20/2024. #Recent fall: Patient seen at [facility] ED 11/02/2024 s/p fall at work. Denied [...] diffuse joint pain and fatigue. Follows with rigging slinger Dr. Clark out of [place], records requested and not yet available for my review. 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 States this was diagnosed by Dr. Dubon out of [place], [place]. Taking methocarbamol 750 mg 3 times [...] reviewed. Dictation completed with the use of [employer] voice recognition software, prone to medical misidentifications [...] Patient reports history of RA. Follows with rigging slinger Dr. Clark out of [place]. Has been treated previously with Humira, Enbrel, [...] was diagnosed by Dr. Dubon out of [place], [place]. Taking methocarbamol 750 mg 3 times [...] reviewed. Dictation completed with the use of [employer] voice recognition software, prone to medical misidentifications [...] was diagnosed by Dr. Dubon out of [place]. Taking methocarbamol 750 mg 3 times [...] Dictation was accomplished with the use of [employer] voice recognition software, which is prone to [...] was diagnosed by Dr. Dubon out of [place], [place]. Taking methocarbamol 750 mg 3 times [...] Dictation was accomplished with the use of [employer] voice recognition software, which is prone to [...] rib syndrome: Follows with Dr. Dubon with [facility]. Underwent repair 12/17/2024. #Ventral hernia: Surgical [...] arthritis: + Rheumatoid factor (152). Follows with rigging slinger Dr. Olaf Kaplan out of [place]. Follow-up labs including CAMILO, ESR/CRP, and comprehensive [...] with psychiatric provider Clarice Lara with [facility]. Taking clonazepam 0.5 mg once daily with [...] dysfunction. #Hyperkalemia: Patient reports she was at [facility] ED recently at which time her [...] reviewed. Dictation completed with the use of [employer] voice recognition software, prone to medical misidentifications [...] Patient requesting urgent colonoscopy per recommendation of [facility] surgeon Jewel Dubon. On review of [...] gabapentin TID without symptom improvement. Follows with crayon painter Dr. Trivedi. Historically the patient has [...] reviewed. Dictation completed with the use of [employer] voice recognition software, prone to medical misidentifications [...] ER follow-up hospital follow-up. María presented to [facility] ED 04/19/2025 with chief complaint of [...] taking any pain medication. Previously followed with crayon painter Dr. Trivedi who provided steroid injections. [...] with added opioid use. WIll refer to crayon painter with goal of establishing safe pain management regimen. #RA: Follows with Olaf Kaplan MD out of [place]. Discussed possibility of chronic pain being related [...] reviewed. Dictation completed with the use of [employer] voice recognition software, prone to medical misidentifications [...] Patient requesting urgent colonoscopy per recommendation of [facility] surgeon Jewel Dubon. On review of [...] gabapentin TID without symptom improvement. Follows with crayon painter Dr. Trivedi. Historically the patient has [...] reviewed. Dictation completed with the use of [employer] voice recognition software, prone to medical misidentifications [...] ER follow-up hospital follow-up. María presented to [facility] ED 04/19/2025 with chief complaint of [...] taking any pain medication. Previously followed with crayon painter Dr. Trivedi who provided steroid injections. [...] with added opioid use. WIll refer to crayon painter with goal of establishing safe pain management regimen. #RA: Follows with Olaf Kaplan MD out of [place]. Discussed possibility of chronic pain being related [...] reviewed. Dictation completed with the use of [employer] voice recognition software, prone to medical misidentifications [...] rib syndrome: Follows with Dr. Dubon with [facility]. Underwent repair 12/17/2024. #Ventral hernia: Surgical [...] arthritis: + Rheumatoid factor (152). Follows with rigging slinger Dr. Olaf Kaplan out of [place]. Follow-up labs including CAMILO, ESR/CRP, and comprehensive [...] with psychiatric provider Clarice Lara with [facility]. Taking clonazepam 0.5 mg once daily with [...] dysfunction. #Hyperkalemia: Patient reports she was at [facility] ED recently at which time her [...] reviewed. Dictation completed with the use of [employer] voice recognition software, prone to medical misidentifications [...] was diagnosed by Dr. Dubon out of [place], [place]. Taking methocarbamol 750 mg 3 times [...] Dictation was accomplished with the use of [employer] voice recognition software, which is prone to [...] was diagnosed by Dr. Dubon out of [place], [place]. Taking methocarbamol 750 mg 3 times [...] Dictation was accomplished with the use of [employer] voice recognition software, which is prone to [...] for 11/20/2024. #Recent fall: Patient seen at [facility] ED 11/02/2024 s/p fall at work. Denied [...] diffuse joint pain and fatigue. Follows with rigging slinger Dr. Clark out of [place], records requested and not yet available for my review. 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 States this was diagnosed by Dr. Dubon out of [place], [place]. Taking methocarbamol 750 mg 3 times [...] reviewed. Dictation completed with the use of [employer] voice recognition software, prone to medical misidentifications [...] Patient reports history of RA. Follows with rigging slinger Dr. Clark out of [place]. Has been treated previously with Humira, Enbrel, [...] was diagnosed by Dr. Dubon out of [place], [place]. Taking methocarbamol 750 mg 3 times [...] reviewed. Dictation completed with the use of [employer] voice recognition software, prone to medical misidentifications [...] for 11/20/2024. #Recent fall: Patient seen at [facility] ED 11/02/2024 s/p fall at work. Denied [...] diffuse joint pain and fatigue. Follows with rigging slinger Dr. Clark out of [place], records requested and not yet available for my review. 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 States this was diagnosed by Dr. Dubon out of [place], [place]. Taking methocarbamol 750 mg 3 times [...] reviewed. Dictation completed with the use of [employer] voice recognition software, prone to medical misidentifications [...] Patient reports history of RA. Follows with rigging slinger Dr. Clark out of [place]. Has been treated previously with Humira, Enbrel, [...] was diagnosed by Dr. Dubon out of [place], [place]. Taking methocarbamol 750 mg 3 times [...] reviewed. Dictation completed with the use of [employer] voice recognition software, prone to medical misidentifications [...] was diagnosed by Dr. Dubon out of [place], [place]. Taking methocarbamol 750 mg 3 times [...] Dictation was accomplished with the use of [employer] voice recognition software, which is prone to medical misidentifications and grammatical errors. This are unintentional and the practitioner does try to identify and correct these, but some could still be present. Please do not hesitate to contact practitioner for clarification. 03/05/2025 Depression with anxiety (ICD-10 - F41.8) aMría is a 59-year-old female with a PMH of rheumatoid arthritis, anxiety, slipped rib syndrome, chronic pain that presents for CPE. #Slipped rib syndrome: Follows with Dr. Dubon with [facility]. Underwent repair 12/17/2024. #Ventral hernia: Surgical [...] arthritis: + Rheumatoid factor (152). Follows with rigging slinger Dr. Olaf Kaplan out of [place]. Follow-up labs including CAMILO, ESR/CRP, and comprehensive [...] with psychiatric provider Clarice Lara with [facility]. Taking clonazepam 0.5 mg once daily with [...] dysfunction. #Hyperkalemia: Patient reports she was at [facility] ED recently at which time her [...] reviewed. Dictation completed with the use of [employer] voice recognition software, prone to medical misidentifications [...] Patient requesting urgent colonoscopy per recommendation of [facility] surgeon Jewel Duobn. On review of Dr. Dubon's most recent [...] gabapentin TID without symptom improvement. Follows with crayon painter Dr. Trivedi. Historically the patient has [...] reviewed. Dictation completed with the use of [employer] voice recognition software, prone to medical misidentifications [...] ER follow-up hospital follow-up. María presented to [facility] ED 04/19/2025 with chief complaint of [...] taking any pain medication. Previously followed with crayon painter Dr. Trivedi who provided steroid injections. [...] with added opioid use. WIll refer to crayon painter with goal of establishing safe pain management regimen. #RA: Follows with Olaf Kaplan MD out of [place]. Discussed possibility of chronic pain being related [...] reviewed. Dictation completed with the use of [employer] voice recognition software, prone to medical misidentifications [...] ER follow-up hospital follow-up. María presented to [facility] ED 04/19/2025 with chief complaint of [...] taking any pain medication. Previously followed with crayon painter Dr. Trivedi who provided steroid injections. [...] with added opioid use. WIll refer to crayon painter with goal of establishing safe pain management regimen. #RA: Follows with Olaf Kaplan MD out of [place]. Discussed possibility of chronic pain being related [...] reviewed. Dictation completed with the use of [employer] voice recognition software, prone to medical misidentifications [...] rib syndrome: Follows with Dr. Dubon with [facility]. Underwent repair 12/17/2024. #Ventral hernia: Surgical [...] arthritis: + Rheumatoid factor (152). Follows with rigging slinger Dr. Olaf Kaplan out of [place]. Follow-up labs including CAMILO, ESR/CRP, and comprehensive [...] with psychiatric provider Clarice Lara with [facility]. Taking clonazepam 0.5 mg once daily with [...] dysfunction. #Hyperkalemia: Patient reports she was at [facility] ED recently at which time her [...] reviewed. Dictation completed with the use of [employer] voice recognition software, prone to medical misidentifications [...] for 11/20/2024. #Recent fall: Patient seen at [facility] ED 11/02/2024 s/p fall at work. Denied [...] diffuse joint pain and fatigue. Follows with rigging slinger Dr. Clark out of [place], records requested and not yet available for my review. 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 States this was diagnosed by Dr. Dubon out of [place], [place]. Taking methocarbamol 750 mg 3 times [...] reviewed. Dictation completed with the use of [employer] voice recognition software, prone to medical misidentifications [...] for 11/20/2024. #Recent fall: Patient seen at [facility] ED 11/02/2024 s/p fall at work. Denied [...] diffuse joint pain and fatigue. Follows with rigging slinger Dr. Clark out of [place], records requested and not yet available for my review. 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 States this was diagnosed by Dr. Dubon out of [place], [place]. Taking methocarbamol 750 mg 3 times [...] reviewed. Dictation completed with the use of [employer] voice recognition software, prone to medical misidentifications [...] ER follow-up hospital follow-up. María presented to [facility] ED 04/19/2025 with chief complaint of [...] taking any pain medication. Previously followed with crayon painter Dr. Trivedi who provided steroid injections. [...] with added opioid use. WIll refer to crayon painter with goal of establishing safe pain management regimen. #RA: Follows with Olaf Kaplan MD out of [place]. Discussed possibility of chronic pain being related [...] reviewed. Dictation completed with the use of [employer] voice recognition software, prone to medical misidentifications [...] for 11/20/2024. #Recent fall: Patient seen at [facility] ED 11/02/2024 s/p fall at work. Denied [...] diffuse joint pain and fatigue. Follows with rigging slinger Dr. Clark out of [place], records requested and not yet available for my review. 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 States this was diagnosed by Dr. Dubon out of [place], [place]. Taking methocarbamol 750 mg 3 times [...] reviewed. Dictation completed with the use of [employer] voice recognition software, prone to medical misidentifications [...] Tissue Head Neck 02/03/2025 Comp. Metabolic Panel [id number] Anti-Mi-2 Ab (RDL)-[id number] 12/13/2024 Anti-Ro (SS-A) Ab (RDL)-[id number] 5 Anti-La (SS-B) Ab (RDL)-[id number] 5 CREATINE KINASE AND CKMB 12/13/2024 Insurance Providers Payer Name Payer Address Payer Phone Subscriber Number Group Number Insured Name Patient Relationship to Insured Coverage Start Date Coverage End Date [facility] [address] [address] [place] [id number] María Phillips Self - patient is [...]
[2025-09-26 15:26] VITALS: BP 135/97; PULSE 93; RESP 16; O2SAT 95; BMI 32.6
== END 2025-09-26 16:10 | disposition home or self-care (01) ==
LOC: HO.PMC 15:19
PROVIDERS: Visit Provider Registered Nurse Emergency
DX: R10.84 Generalized abdominal pain (principal); K57.92 Diverticulitis of intestine, part unspecified, without perforation or abscess without bleeding; M53.3 Sacrococcygeal disorders, not elsewhere classified; M47.816 Spondylosis without myelopathy or radiculopathy, lumbar region; M25.561 Pain in right knee; M25.562 Pain in left knee; M94.0 Chondrocostal junction syndrome [Tietze]; M79.7 Fibromyalgia
CPT/HCPCS: 99213; G2211

== ENCOUNTER 2025-09-27 16:44 | Outpatient (REF) | payer OTHER, SELFPAY ==
--- OUTSIDE RECORDS SUMMARY | 2024-08-06 07:23 | XMS_ITS | Encounter Summary ---
Author Organization [facility] Address [address] [place] [address] Care Team Providers Care Wire Lather Name Role Phone Unavailable Primary Care Provider Unavailabl e Encounter Details Date Type Department Care Team (Late st Contact Info) Description 08/06/2024 8:23 AM EDT Hospital Encounter TH HISTORIC ENCOUNTERS EASTERN CONVERSION ONLY Tutu Trivedi MD [address] [place] [address] Social History Tobacco Use Types Packs/Day Years Used Date Smoking Tobacco: Some Days Cigarettes 0.5 48.9 Started: 1974 Smokeless Tobacco: Never Alcohol Use Standard Drinks/Week Comments Yes 21 (1 standard drink = 0.6 oz pu re alcohol) socially Food Risk Answer Date Recorded Within the past 12 months we worried whether our food would run out before we got money to buy more. Not asked 04/20/2025 Within the past 12 months th e food we bought just didn't last and we didn't have money to get more. Not asked 04/20/2025 Interpersonal Safety Answer Date Record ed Physical Abuse Unrecognized value 07/16/2025 Verbal Abuse Unrecognized value 07/16/2025 Comments No Sex and Gender Information Value Date Recorded Sex Assigned at Female 10/26/2024 8:32 AM EST Legal Sex Female 3:55 AM EST Gender Identity Female 10/26/2024 8:32 AM EST Sexual Orientation Straight 01/23/2025 10 :44 AM EDT documented as of this encounter Last Filed Vital Signs Vital Sign Reading Time Taken Comments Blood Pressure - - Pulse - - Temperature - - Respiratory Rate - - Oxygen Saturation - - Inhaled Oxygen Concentration - - Weight 72.6 kg (160 lb) 11/29/2023 12:34 PM EST Height 162.6 cm (5' 4 ) 11/29/2023 12:34 PM EST Body Mass Index 27.46 11/29/2023 12:34 PM EST documented in this encounter Functional Status * Question Answer Date of Assessment Author 3. Active Suicidal Ideation with any Methods (Not Plan) Without Intent to Act (Past 1 Month) No 04/21/2025 12:00 PM EDT Indigo Ríos RN 4. Active Suicidal Ideation with Some Intent to Act, Without Specific Plan (Past 1 Month) No 04/21/2025 12:00 PM EDT Indigo Ríos RN 5. Active Suicidal Ideation with Specific Plan and Intent (Past 1 Month) No 04/21/2025 12:00 PM EDT Indigo Ríos RN * Calculated C-SSRS Risk Score (Lifetime/Recent) Answer Date of Assessment Author No Risk Indicated 07/08/2025 4:01 PM EDT Karin Vera RN * [place] Suicide Severity Rating Scale (Screener/Recent Self-Report) Question Answer Date of Assessment Author 1. Wish to be (Past 1 Month) No 07/08/2025 4:01 PM EDT Karin Morton RN 2. Non-Specific Active Suici beth Thoughts (Past 1 Month) No 07/08/2025 4:01 PM EDT Trev Morton RN 6. Suicidal Behavior (Lifetime) No 5 4:01 PM EDT Karin Morton RN 6. Suicidal Behavior (3 Months) No 12:00 PM EDT Indigo Ríos RN documented as of this encounter Procedure Notes * Tutu Trivedi MD - 08/06/2024 8:30 AM EDT SACROILIAC JOINT STEROID INJECTION (Right) Anesthesia: local Procedure: The risks, benefits and alternatives of intra-articular injection were discussed with the patient. Risks include infection, bleeding, transient hyperglycemia, avascular necrosis of the hip, and atrophy at injection site. No certain guarantees have been made, patients understand that responses can vary and multiple procedures may be necessary. The patient was identified and timeout confirmed the correct site for the procedure. The patient was positioned appropriately. The overlying skin was prepped with chlorascrub. The skin was injected with 3 ml of 1% lidocaine without epinephrine to achievelocal anesthesia. Fluoroscopic guidance was performed, and images were saved into our system. The skin was prepped in the usual sterile fashion. Using multi- directional images, the joint space was visualized and the needle was introduced into the space. Contrast was injected to confirm correct intra-articular placement of the needle. A combination of 40mg of depomedrol of 2mL of 0.5% ropivicaine was used for injection into each joint. Patient can resume activities as tolerated. Please contact the office if there is swelling, rednessor pain at the injection site. documented in this encounter Plan of Treatment Not on file documented as of this encounter Goals Goal Patient Goal Type Associated Problems Recent Progress Patient-Stated? Author OT 6-8 visits General No change(2024 4:47 PM EST) No Nichelle Milian, OT Note: 1> Indep HEP (splint weaning, ROM, pain manage, eventual strength) 09/11 Ongoing 2. Dominant R cabinet builder strength at least 35# (vs 20initial, vs 47 L hand) 09/11 Not met, to 27 currently 3. R wrist ext AROM at least 55 w/ tolerance for weightbearing during sit to stand 09/11 Progress noted to 52 4. R wrist flex AROM at least 45 09/11 Not met, currently limited 25 5. Reported tolerance for home manage/work duties of mod resistance not exceed 2/10 pain 09/11 Not met: pain level 8/10 documented as of this encounter Visit Diagnoses Not on filedocumented in this encounter Additional Health Concerns Infection Onset Date Last Indicated Resolved Time Respiratory Rule-Out 12/05/2024 12/05/2024 025 4:51 PM EST Respiratory Rule-Out 12/14/2024 12/14/2024 025 5:56 PM EST COVID-19 Rule-Out 12/14/2024 12/14/2024 12/14/2024 5:56 PM EST C. difficile Rule-Out 05/08/2025 05/08/20252024 3:19 PM EDT Gastrointestinal Rule-Out 05/08/2025 05/08/2025 3:28 PM EDT documented as of this encounter
--- OUTSIDE RECORDS SUMMARY | 2024-11-04 08:00 | XMS_ITS ---
Author Organization [facility] Address [address] [place] [phone] Care Team Providers Care Ear Nose Throat Surgeon Name Role Phone IKER ROBLERO PA-C Primary Care Provider Latonya Ramirez Unavailable [phone] Allergies Allergen (clinical drug ingredient) Drug/Non Drug Allergy documented on EMR Reaction Allergy Type Onset Date Status erythromycin ERYTHROMYCIN Skin Rash Drug Allergy A ctive REASON FOR VISIT PAP AFTER PREMARIN USE Encounters Encounter Location Date Provider Diagnosis [address] [address] 11/04/2024 Latonya Lozano Plan Of Treatment No Information Progress Notes * DAWSON OLSONMOONOB:1965 (60 yo F)Acc No.[id number]:11/04/2024 PROGRESS NOTES Patient: MARCUS RODRIGUEZ Appointment Provider: Shannon Lozano M.D. :1965 A ge:59 Y S ex:Female Date:11/04/2024 Address:[address] [place], [place] [id number] Pcp:IKER ROBLERO PA-C Subjective: * Chief Complaints: [...] on cytologic smear of cervix (ASC-US). * Hypnotherapist History: G ravida/ Para 2 /2. S exual activity n ot currently sexually active. L ast Pap Smear: ASCUS, POS HRHPV (Neg 16, 18/45), 03/28/22 LGSIL, POS HRHPV (neg 16, 18/45), 11/21/17 NEG HRHPV, 2011. M ammogram: < 50% density, 02/27/19 < 50% density, 07/26/2017 normal, 07/2016 with follow up Lt Diagnostic 07/09/2016 Bx recommended. A bnormal Pap Smear: [place] Negative, 06/06/22 [place] Negative, 03/2022 LGSIL, + HRHPV. L MP [...] Electronic signature of Pato Lozano MD on 09/27/2025 at 04:50 PM EST Sign off status: Pending * Appointment Provider: Shannon Lozano M.D. Date: Generated for Renay bear/Hilton/Nelsonsmitting on: 11/27/2024 04:50 PM EST
--- OUTSIDE RECORDS SUMMARY | 2024-12-05 05:40 | XMS_ITS ---
Author Organization [facility] Address [address] [place] [address] Care Team Providers Care Third Steel Pourer Name Role Phone IKER ROBLERO PA-C Primary Care Provider Latonya Ramirez Unavailable [phone] Allergies Allergen (clinical drug ingredient) Drug/Non Drug [...] 6-10 Encounters Encounter Location Date Provider Diagnosis [address] [address] 12/05/2024 Latonya Lozano Plan Of Treatment No Information Progress Notes * MIS OLSONOB:1965 (60 yo F)Acc No.[id number]:12/05/2024 PROGRESS NOTES Patient: MARCUS RODRIGUEZ Appointment Provider: Shannon Lozano M.D. :1965 A ge:59 Y S ex:Female Date:12/05/2024 Address:[address] [place] [address] Pcp:IKER ROBLERO PA-C Subjective: * Chief Complaints: [...] on cytologic smear of cervix (ASC-US). 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 S exual activity n ot currently sexually active. L ast Pap Smear: ASCUS, POS HRHPV (Neg 16, 18/45), 03/28/22 LGSIL, POS HRHPV (neg 16, 18/45), 11/21/17 NEG HRHPV, 2011. M ammogram: < 50% density, 02/27/19 < 50% density, 07/26/2017 normal, 07/2016 with follow up Lt Diagnostic 07/09/2016 Bx recommended. A bnormal Pap Smear: [place] Negative, 06/06/22 [place] Negative, 03/2022 LGSIL, + HRHPV. L MP [...] 0 12/05/2024 Generated for Renay bear/Hilton/Shaquille on: 11/27/2024 04:50 PM EST
--- OUTSIDE RECORDS SUMMARY | 2025-02-14 06:00 | XMS_ITS ---
Author Organization [facility] Address [address] [place] [address] Care Team Providers Care Drive In Waiter/Waitress Name Role Phone IKER ROBLERO PA-C Primary Care Provider Unav Latonya Panda Unavailable [phone] REASON FOR VISIT ULTRA - CK OVARIES ? DERMOID ON RT ADNEXA ON X RAY Encounters Encounter Location Date Provider Diagnosis [facility] [employer] [address] 02/14/2025 Latonya Lozano Plan Of Treatment No Information Progress Notes * DAWSON OLSONMOONOB:1965 (60 yo F)Acc No.[id number]:02/14/2025 PROGRESS NOTES Patient: MARCUS RODRIGUEZ Appointment Provider: Shannon Lozano M.D. :1965 A ge:59 Y S ex:Female Date:02/14/2025 Address:[address] [place], [place] [address] Pcp:IKER ROBLERO PA-C Subjective: * Chief Complaints: [...] 02/14/2025 Generated for Kareeni chema/Hilton/eTransmitting on: 1 11/27/2024 04:50 PM EST
--- OUTSIDE RECORDS SUMMARY | 2025-03-03 08:10 | XMS_ITS ---
Author Organization [facility] Address [address] [place] [address] Care Team Providers Care Hair Spring Winder Name Role Phone IKER ROBLERO PA-C Primary Care Provider Latonya Ramirez Unavailable [phone] Allergies Allergen (clinical drug ingredient) Drug/Non Drug [...] Encounters Encounter Location Date Provider Diagnosis [address] [address] 03/03/2025 Latonya Lozano Plan Of Treatment No Information Progress Notes * MIS OLSONOB:1965 (60 yo F)Acc No.[id number]:03/03/2025 Patient: Bhavna DIORMARCUS Appointment Provider: Shannon Lozano M.D. :1965 A ge:59 Y S ex:Female Date:03/03/2025 Address:[address] [place] [address] Pcp:IKER ROBLERO PA-C Subjective: * Chief Complaints: [...] on cytologic smear of cervix (ASC-US). * Reproductive Surgeon History: G ravida/ Para 2 /2. S exual activity n ot currently sexually active. L ast Pap Smear: ASCUS, POS HRHPV (Neg 16, 18/45), 03/28/22 LGSIL, POS HRHPV (neg 16, 18/45), 11/21/17 NEG HRHPV, 2011. M ammogram: < 50% density, 02/27/19 < 50% density, 07/26/2017 normal, 07/2016 with follow up Lt Diagnostic 07/09/2016 Bx recommended. A bnormal Pap Smear: [place] Negative, 06/06/22 [place] Negative, 03/2022 LGSIL, + HRHPV. L MP [...] 03/03/2025 Generated for Renay bear/[place]ilton/[place] on: 1 11/27/2024 04:50 PM EST
--- OUTSIDE RECORDS SUMMARY | 2025-03-06 05:00 | XMS_ITS ---
Author Organization [facility] Address [address] [facility] [facility] [address] [place] [address] Care Team Providers Care Finished Cloth Checker Name Role Phone IKER ROBLERO PA-C Primary Care Provider Latonya Ramirez Unavailable [phone] Allergies Allergen (clinical drug ingredient) Drug/Non Drug [...] Gabapentin 100 MG TAKE 1 CAPSULE BY [facility] 3 TIMES A DAY Oral; Duration: 30 Days Active Estradiol 0.0375 MG/24HR 1 patch to skin Transdermal Two times a Week; Duration: 90 days 12/09/2024 Active Turmeric 500 MG as directed Orally Active Vitamin D3 25 MCG (1000 UT) as directed Orally Active Escitalopram Oxalate 10 MG Oral; Duration: 30 Days Active Vitamin C 500 MG as directed Orally Active Baclofen 10 MG 1 tablet as needed O rally Once a day Active ZyrTEC 10 MG 1 tablet Orally Once a day Active Social History Tobacco Use: Social History [...] 6-10 Encounters Encounter Location Date Provider Diagnosis [address] [place] [address] 03/06/2025 Latonya Lozano Plan Of Treatment No Information Progress Notes * DAWSON OLSONENDOB:1965 (60 yo F)Acc No.[id number]:03/06/2025 Patient: MARCUS RODRIGUEZ Appointment Provider: Shannon Lozano M.D. :1965 A ge:59 Y S ex:Female Date:03/06/2025 Address:[address] [place], [place] [phone] Pcp:IKER ROBLERO PA-C Subjective: * Chief Complaints: [...] on cytologic smear of cervix (ASC-US). * Slotter Operator Helper History: G ravida/ Para 2 /2. S exual activity n ot currently sexually active. L ast Pap Smear: ASCUS, POS HRHPV (Neg 16, 18/45), 03/28/22 LGSIL, POS HRHPV (neg 16, 18/45), 11/21/17 NEG HRHPV, 2011. M ammogram: Breast Tissue is Almost Entirely Fatty, , 02/27/19 < 50% density, 07/26/2017 normal, 07/2016 with follow up Lt Diagnostic 07/09/2016 Bx recommended. A bnormal Pap Smear: [place] Negative, 06/06/22 [place] Negative, 03/2022 LGSIL, + HRHPV. L MP [...] 12 months? N o M iscellaneous: C hildren: yes, 2. Domestic violence: no. Home smoke [...] oints 2 I nterpretation N egative * Medications: T aking Baclofen 10 MG [...] of Pato Lozano MD on 09/27/2025 at 04:49 PM EST Sign off status: Pending * Appointment Provider: Shannon Lozano M.D. Date: 0 03/06/2025 Generated for Renay bear/Hilton/Lambertoitting on: 1 11/27/2024 04:49 PM EST
--- OUTSIDE RECORDS SUMMARY | 2025-09-22 02:48 | XMS_ITS ---
Author Organization [facility] [address] Address [address] [place] [address] Care Team Providers Care Boiler Technician Name Role Phone IKER ROBLERO Unavailable [phone] REASON FOR VISIT Referral Encounters Encounter Location Date Provider Diagnosis [facility] [address] [address] 09/22/2025 IKER ROBLERO Plan Of Treatment No Information Progress Notes * David OLSONOB:1965 (60 yo F)Acc No.[id number]:09/22/2025 Patient: Bhavna STARKSaMría GOODWIN :1965 A ge:60 Y S ex:Female Address:[address], [place] [address] Subjective: * Chief Complaints: * R eferral * true * Date: Generated for Renay bear/Hilton/eTkayleesmitting on: 11/27/2024 04:49 PM EST
--- OUTSIDE RECORDS SUMMARY | 2025-09-23 09:06 | XMS_ITS ---
Author Organization [facility] [address] Address [address] [place] [address] Care Team Providers Care Peoplesoft Functional Analyst Name Role Phone IKER ROBLERO Unavailable [phone] Reason For Referral Reason [facility] [place] Gastroenterology Diagnosis 1 Epigastric abdominal pain (R10.13) Referral Organization [facility] [address] Referring Provider First Name IKER Referring Provider Last Name ANNIKA Referring Provider Speciality Preventive Medicine Referred Provider Specialty Gastroentero logy General Notes XAVIER VILLANUEVA 09/24 08:31:39 AM EST > Referral has been faxed, [facility] [place] - Gastroenterology, [facility] Office, [address] [facility] [address], [facility] [address], Referral Priority Urgent REASON FOR VISIT RE:Update on referral Encounters Encounter Location Date Provider Diagnosis [facility] [address] [facility] [address] [facility] [address] [place] [address] 09/23/2025 IKER ROBLERO Plan Of Treatment Referrals Referral Date Details 09/24/2025 09/24/2025, [facility] Juju roenterology Consultation Request Notes Referral Date Referring Provider Referred Provider Not es 09/24/2025 IKER ROBLERO , [facility] Gastroe nterology Progress Notes * David OLSONOB:1965 (60 yo F)Acc No.[id number]:09/23/2025 Patient: Bhavna STARKSMaría GOODWIN :1965 A ge:60 Y S ex:Female Address:[address], [place] [address] Subjective: * Chief Complaints: * R E:Update on referral Plan: * Treatment: * true * Date: Generated for Printi ng/Faxing/[place] on: 11/27/2024 04:49 PM EST
--- NOTE | ~2025-09-27 | MR_ITS ---
EXAMINATION: MR KNEE WITHOUT AND WITH CONTRAST, RIGHT CLINICAL INFORMATION: Rheumatoid arthritis, rheumatoid factor of multiple sites COMPARISON: None available. TECHNIQUE: MRI of the knee was performed before and after the intravenous administration of 7.5 mL of Gadavist on a high-field scanner. FINDINGS: MENISCI: Medial meniscus: Horizontal and inferior articular surface tearing of the posterior body and the medial portion of the posterior horn. Lateral meniscus: Irregular degenerative tearing of the posterior root and the central posterior horn.. LIGAMENTS: Cruciate: Intact. Collateral: Intact. EXTENSOR MECHANISM: Intact. ARTICULAR CARTILAGE/BONE: Patellofemoral compartment: Mild-moderate arthritis, with nonuniform chondral loss, marginal osteophytes. Medial compartment: Moderate arthritis, joint space loss, nonuniform chondral loss, marginal osteophytes. Lateral compartment: Mild-moderate arthritis, marginal osteophytes, nonuniform chondral loss including moderate loss in the posterior weightbearing femoral condyle. No evidence of acute fracture. No erosions identified. No aggressive marrow lesions. JOINT FLUID AND BURSAE: Small effusion. Question mild prominence of the synovium. Mild stranding in the posterior joint space, could reflect mild synovitis. Small Burns's cyst. Mild subcutaneous edema. MR/MR knee RT wo/w con IMPRESSION: * Tear of the medial meniscal posterior body of the medial posterior horn. * Tear of the posterior root and central posterior horn of the lateral meniscus. * Tricompartment arthritis. Moderate medial compartment arthritis. No erosions. * Small effusion. Possible mild synovitis.. Small Burns's cyst. Electronically signed by: Will Pappas MD 09/29/2025 08:12 AM [facility]
--- NOTE | ~2025-09-27 | MR_ITS ---
EXAMINATION: MR KNEE WITHOUT AND WITH CONTRAST, LEFT CLINICAL INFORMATION: Rheumatoid arthritis COMPARISON: None available. TECHNIQUE: MRI of the knee was performed before and after the intravenous administration of 7.5 mL of Gadavist on a high-field scanner. FINDINGS: MENISCI: Medial meniscus: Intact. Lateral meniscus: Fraying/ill-defined tear of the anterior root/central anterior horn . 7 mm loose body adjacent to the anterior root. Irregular tearing of the posterior root and central posterior horn. Degenerative signal in the posterior horn. LIGAMENTS: Cruciate: Postsurgical changes from prior ACL reconstruction surgery.. T2 signal in the ACL graft suggestive of degenerative signal. No ligament laxity or discontinuity is seen. There is a intermediate/low T1 signal in the in the intercondylar region, seen both anteriorly and posteriorly, and along the ACL graft. These findings could represent for arthrofibrosis.. There is a cystic focus in the tibial tunnel measuring 1.8 cm in length. Collateral: Intact. EXTENSOR MECHANISM: Quadriceps tendon is intact. Postsurgical changes in the patellar tendon from ACL graft harvest. Postsurgical changes in the patella. ARTICULAR CARTILAGE/BONE: Patellofemoral compartment: Moderate arthritis. Nonuniform chondral loss. Subchondral cyst/edema. Medial compartment: Moderate arthritis. Nonuniform chondral loss more prominently involving the femoral condyle. Lateral compartment: Moderate arthritis. High-grade chondral loss in the posterior weightbearing compartment. No acute fracture. No aggressive marrow replacing lesion. No erosive changes identified. JOINT FLUID AND BURSAE: Small effusion. There is mild synovitis.. MR/MR knee LT wo/w con IMPRESSION: *Fraying/ill-defined tear of the anterior root/central anterior horn, and irregular tearing of the posterior root and central posterior horn of the lateral meniscus * Postsurgical changes from prior ACL reconstruction surgery. 1.8 cm cystic focus in the tibial tunnel. ACL graft signal could reflect degenerative signal. No ligament discontinuity/laxity seen. * Intermediate/low signal foci in the intercondylar region, including along the ACL graft. This could reflect arthrofibrosis. * Moderate tricompartment arthritis. * Small effusion. Mild synovitis. 7 mm loose body anteriorly. Electronically signed by: Will Pappas MD 09/29/2025 08:23 AM [facility]
--- OUTSIDE RECORDS SUMMARY | 2025-09-27 16:49 | XMS_ITS | Patient Health Record ---
Author Organization [facility] Address [address] [place] [address] Care Team Providers Care Mill Beam Fitter Name Role Phone IKER ROBLERO PA-C Primary Care Provider Unav bianca Lozano Latonya Unavailable [phone] Allergies Allergen (clinical drug ingredient) Drug/Non Drug Allergy documented on EMR Reaction Allergy Type Onset Date Status erythromycin ERYTHROMYCIN Skin Rash Drug Allergy A ctive Results Component Value Reference Range Notes Urinalysis Reviewed date:10/14/2024 01:33:35 PM Interpretation: Performing Lab: Notes/Report: PH 8.0 PROTEIN Neg GLUCOSE Neg BLOOD Neg Vitamin [id number] Reviewed date:12/14/2024 02:48:01 PM Interpretation: Performing Lab:[facility] [address], Phone - [phone], Director - MDJodry Notes/Report: Test(s) 730199-Eez. B1, Whole Blood was developed and its performance characteristics determined by [facility]. It has not been cleared or approved by the Food and Drug Administration. Vitamin B12 841 880-1892 pg/mL Thyroxine (T4) Free, Direct- 716757 Reviewed date:12/14/2024 02:48:28 PM Interpretation: Performing Lab:[facility] [address], Phone - [phone], Director - MDJodry Notes/Report: Test(s) 808301-Nkb. B1, Whole Blood was developed and its performance characteristics determined by [facility]. It has not been cleared or approved by the Food and Drug Administration. T4,Free(Direct) 1.16 0.82-1.77 ng/dL TSH-[id number] Reviewed date:12/14/2024 02:48:55 PM Interpretation: Performing Lab:[facility] [address], Phone - [phone], Director - [facility] Notes/Report: Test(s) 172194-Xjp. B1, Whole Blood was developed and its performance characteristics determined by [facility]. It has not been cleared or approved by the Food and Drug Administration. TSH 0.492 0.450-4.500 uIU/mL Triiodothyronine (T3), Free- 197810 Reviewed date:12/14/2024 02:48:08 PM Interpretation: Performing Lab:[facility] [address], Phone - [phone], Director - [facility] Notes/Report: Test(s) 209837-Npy. B1, Whole Blood was developed and its performance characteristics determined by [facility]. It has not been cleared or approved by the Food and Drug Administration. Triiodothyronine (T3), Free 2.9 2.0-4.4 pg/mL Vitamin D, 16-Yofibfa-089818 Reviewed date:12/14/2024 02:47:53 PM Interpretation: Performing Lab:[facility] [address], Phone - [phone], Director - [facility] Notes/Report: Test(s) 311460-Btv. B1, Whole Blood was developed and its performance characteristics determined by [facility]. It has not been cleared or approved by the Food and Drug Administration. Vitamin D, 25-Hydroxy 48.0 30.0-100.0 ng/mL Vitamin D deficiency has been defined by the [place] of [employer] and an Endocrine Society practice guideline as a level of serum 25-OH vitamin D less than 20 ng/mL (1,2). The Endocrine Society went on to further define vitamin D insufficiency as a level between 21 and 29 ng/mL (2). 1. IOM ([place] of [employer]). 2010. Dietary reference intakes for calcium and D. [place]: The National Academies Press. 2. Angelica MF, Leonel NC, Sheeba MCKENNA, et al. Evaluation, treatment, and prevention of vitamin D deficiency: an Endocrine Society clinical practice guideline. JCEM. 2010; 96(7):1911-30. Vitamin B1 (Thiamine), Blood -111655 Reviewed date:12/14/2024 02:48:18 PM Interpretation: Performing Lab:[facility] [place] [address] [address], Phone - [phone], Director - [facility] Notes/Report: Test(s) 677960-Dqh. B1, Whole Blood was developed and its performance characteristics determined by [facility]. It has not been cleared or approved by the Food and Drug Administration. Vit. B1, Whole Blood 131.3 66.5-200.0 nmol/L PDF Report Reviewed date:12/14/2024 02:47:46 PM Interpretation: Performing Lab:[facility] [place], [address], Phone - [phone], Director - [facility] Notes/Report: Test(s) 775239-Ngl. B1, Whole Blood was developed and its performance characteristics determined by [facility]. It has not been cleared or approved by the Food and Drug Administration. 040359-Vfs IGP No Culture 30 Plus Reviewed date:07/17/2025 02:32:32 PM Interpretation: Performing Lab:[facility] [address], [address], [place], Phone - [phone], Director - [facility] Notes/Report: Clinical Information:VAG/CERV [id number] Dates / Results....05/26/2023 ASCUS POS HPV Other..............Post Menopausal No. of containers..01 ThinPrep Vial Clinical Information:VAG/CERV [id number] Dates / Results....05/26/2023 ASCUS POS HPV Other..............Post Menopausal No. of containers..01 ThinPrep Vial DIAGNOSIS: NEGATIVE FOR INTRAEPITHELIAL LESION OR MALIGNANCY. THIS SPECIMEN WAS RESCREENED PART OF OUR [employer] DELIVERER PROGRAM. Specimen adequacy: Satisfactory for evaluation. Endocervical and/or squamous metaplastic cells (endocervical component) are present. Clinician provided ICD10: Z01.419 Z11.51 Performed by: Tianna vasquez, Pediatric Occupational Therapist (ASC) QC reviewed by: Tutu weaver, Pediatric Occupational Therapist (ASC) . . Note: The Pap smear [...] date:07/10/2025 04:46:44 PM Interpretation: Performing Lab:[facility], [address], [address], [place], Phone - [phone], Director - Jaswinder Notes/Report: Clinical Information:VAG/CERV [id number] Dates / Results....05/26/2023 ASCUS POS HPV Other..............Post Menopausal No. of containers..01 ThinPrep Vial PDF Report Reviewed date:07/03/2025 07:41:07 AM Interpretation: Performing Lab:[facility], [address] [place] [address], Phone - [phone], Director - Elsa Notes/Report: Clinical Information:SRC:UC PDF Report Reviewed date:08/20/2025 05:10:43 PM Interpretation: Performing Lab:[facility] [place], [address], [place], Phone - [phone], Director - Jaswinder Notes/Report: Clinical Information:SRC: Chlamydia/GC Amplification Reviewed date:08/20/2025 05:10:49 PM Interpretation: Performing Lab:[facility] [place], [address], [place], Phone - [phone], Director - Clarae Notes/Report: Clinical Information:SRC: Chlamydia trachomatis, AZEB Negative Negative Neisseria gonorrhoeae, AZEB Negative Negative Syphilis RPR w/reflex Reviewed date:08/21/2025 07:51:06 AM Interpretation: Performing Lab:[facility] [place], [address], [place], Phone - [phone], Director - Clarae Notes/Report: Clinical Information:SRC:UR RPR Non Reactive Non Reactive PDF Report Reviewed date:08/21/2025 07:50:23 AM Interpretation: Performing Lab:[facility] [place], [address], [address], [place], Phone - [phone], [facility] Notes/Report: Clinical Information:SRC:UR HCV Antibody-[id number] Reviewed date:08/21/2025 07:51:12 AM Interpretation: Performing Lab:[facility] [place], [address], [address], [place], Phone - [phone], Director - [facility] Notes/Report: Clinical Information:SRC:UR Hep C Virus Ab Non Reactive Non Reactive HCV antibody alone does not differentiate between previously resolved infection and active infection. Equivocal and Reactive HCV antibody results should be followed up with an HCV RNA test to support the diagnosis of active HCV infection. M genitalium AZEB, Urine-1800 25 Reviewed date:08/21/2025 07:50:59 AM Interpretation: Performing Lab:[facility] [place], [address], [address], [place], Phone - [phone], Director - [facility] Notes/Report: Clinical Information:SRC:UR Mycoplasma genitalium AZEB Negative Negative HIV Ab/p24 Ag with Reflex-08 3935 Reviewed date:08/21/2025 07:51:19 AM Interpretation: Performing Lab:[facility], [address], [place], Phone - [phone], Director - [facility] Notes/Report: Clinical Information:SRC:UR HIV Ab/p24 Ag Screen Non Reactive Non Reactive HIV-1/HIV-2 antibodies and HIV-1 p24 antigen were NOT detected. There is no laboratory evidence of HIV infection. HIV Negative HBsAg Screen-357481 Reviewed date:08/21/2025 07:50:52 AM Interpretation: Performing Lab:[facility] [place], [address], [place], Phone - [phone], Director - [facility] Notes/Report: Clinical Information:SRC:UR HBsAg Screen Negative Negative Urine Culture, Routine-12339 7 Reviewed date:07/03/2025 07:42:29 AM Interpretation: Performing Lab:[facility] [place], [address] [place] [address], Phone - [phone], Director Flakito Hunter Notes/Report: Clinical Information:SRC:UC Clinical Information:SRC:UC Urine Culture, Routine Final report Result 1 Mixed urogenital ramone 25,000-50,000 colony forming units per mL Urinalysis, Complete-977747 Reviewed date:07/03/2025 07:42:16 AM Interpretation: Performing Lab:[facility] [place], [address], [place], Phone - [phone], Director - Elsa Notes/Report: Clinical Information:SRC: Clinical Information:SRC:UC Specific [place] 1.013 1.005-1.030 pH 6.5 5.0-7.5 Urine-Color Yellow [...] test positive, high risk on vaginal specimen ([id number]) Cervical high risk human papillomavirus (HPV) DNA test positive (R87.810) Active confirmed Problem Postmenopausal atrophic vaginitis (33443659) Postmenopausal atrophic vaginitis (N95.2) Active confirmed Problem Cervicovaginal cytology: Low grade squamous intraepithelial lesion (232279148) Low grade squamous intraepithelial lesion on cytologic smear of cervix (LGSIL) (R87.612) Active confirmed Problem Non-toxic single thyroid nodule (130357306) Nontoxic single thyroid nodule (E04.1) Active confirmed Problem Autoimmune thyroiditis (12165845) Autoimmune thyroiditis (E06.3) Active confirmed Problem Anxiety disorder (248226698) Anxiety disorder, unspecified (F41.9) Active confirmed Problem Epidermal cyst (594806183) Epidermal cyst (L72.0) Active confirmed Problem Rheumatoid arthritis (76940809) Rheumatoid arthritis, unspecified (M06.9) Active confirmed Problem Endometrial intraepithelial neoplasia (658088964) 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) Active confirmed Problem Postcoital bleeding (14751339) Postcoital and contact bleeding (N93.0) Active confirmed Problem Unspecified abnormal finding in specimens from female genital organs (R87.9) Active confirmed Problem Menopause (417666957) Menopausal and female climacteric states (N95.1) Active confirmed Problem Anxiety state (402335560) Anxiety state, unspecified (300.00) Active confirmed Major Vital Signs Temperature 97.3 degrees Fahrenheit 07/03/2025 Blood pressure diastolic 84 mm Hg 07/03/2025 Height 62 in 07/03/2025 Blood pressure systolic 128 mm Hg 07/03/2025 Weight 161 lbs 07/03/2025 BMI 29.44 kg/m2 07/03/2025 Encounters Encounter Location Date Provider Diagnosis [facility] [address] [address] 12/05/2024 Latonya Lozano Total [facility] [address] [address] 02/14/2025 Latonyaines DiazLozano Total [address] [address] 03/06/2025 Latonyaines DiazLozano Total [address] [address] 10/14/2024 Latonya Mcgeeva Encounter for gynecological examination (general) (routine) without abnormal findings Z01.419 ; Encounter for screening mammogram for malignant neoplasm of breast Z12.31 ; Personal history of other diseases of the female genital tract Z87.42 ; Cervical high risk human papillomavirus (HPV) DNA test positive R87.810 and Postmenopausal atrophic vaginitis N95.[address] [address] 12/09/2024 Latonyaines Mcgeeva Other fatigue R53.83 and Menopausal and female climacteric states N95.[address] [address] 07/03/2025 Latonya Mcgeeva Lower abdominal pain , unspecified R10.30 ; Atypical squamous cells of undetermined significance on cytologic smear of vagina (ASC-US) R87.620 ; Cervical high risk human papillomavirus (HPV) DNA test positive R87.810 and Encounter for screening for human papillomavirus (HPV) Z11.[address] [address] 09/26/2025 Latonyaines Mcgeeva Total [address] [address] 12/03/2024 Latonyaines DiazLozano [address] [address] 12/12/2024 Latonyaines DiazLozano [address] [address] 01/22/2025 Latonyaines DiazLozano Total [facility] [address] [address] 02/16/2025 Latonya Mcgeeva Total [facility] [address] [address] 06/30/2025 Latonya Lozano Dysuria R30.[address] [address] 08/19/2025 Latonyaines Lozano High risk heterosexu al behavior Z72.[address] [address] 09/09/2025 Latonya Mcgeeva Total [address] [address] 09/18/2025 Latonya Lozano Assessments Encounter Date Diagnosis [...] AND NEEDS TESTOSTERONE THERAPY, WILL REFER TO [facility]. WARNED PAT OF POSSIBLE VAGINAL BLEEDING. [...] 10/14/2024 MM Digital Mammo Screening 05/04/2023 Chlamydia/GC Amplification-[id number] 2024 Insurance Providers Payer Name Payer Address Payer Phone Subscriber Number Group Number Insured Name Patient Relationship to Insured Coverage Start Date Coverage End Date [employer] [address] [address] [place] [id number] MARCUS OLSON Self - patient is the [...]
--- OUTSIDE RECORDS SUMMARY | 2025-09-27 16:49 | XMS_ITS | Encounter Summary ---
Author Organization [facility] Address [address] [place] [address] Care Team Providers Care Pasteurizer Name Role Phone Araceli Augustin Primary Care Provider + Encounter Details Date Type Department Care Team ([facility] st Contact Info) Description 08/06/2025 Results Follow-Up Gastroenterology - [place] [facility] 175 [facility] [address] [place] [address] Gia Lance, NICOLE [address] [facility] [address] [place] [address] Social History Tobacco Use Types Packs/Day Years [...] on filedocumented in this encounter Care Teams Pasteurizer Relationship Specialty Start Date End Date Araceli Augustin PA [address] [place] [phone] PCP - General 11/20/24 documented as of this encounter
--- OUTSIDE RECORDS SUMMARY | 2025-09-27 16:49 | XMS_ITS | Clinical Summary ---
Author Organization [facility] Address [address] [place] [address] Phone Care Team Providers Care Whitewasher Name Role Phone Vee Allan MD Primary [...] Medical Devices Not on file Care Teams Whitewasher Relationship Specialty Start Date End Date Vee Allan MD [address] [place] [address] PCP - General Internal Medicine 09/01/20 Additional Source Comments The information contained in this document represents components of the legal health record. It is not the complete legal health record.[facility]
--- OUTSIDE RECORDS SUMMARY | 2025-09-27 16:50 | XMS_ITS | Encounter Summary ---
Author Organization [facility] Address [address] [place] [address] Care Team Providers Care Manager Agency Name Role Phone Araceli Augustin Primary Care Provider + Reason for Visit * Reason Onset Date Comments consult 09/24/2025 Encounter Details Date Type Department Care Team ([facility] st Contact Info) Description 09/24/2025 Telephone Gastroenterology - [place] [facility] 175 [facility] [address] [place] [address] Melba Bunn MD [address] [facility] [address] [place] [address] Social History Tobacco Use Types Packs/Day Years [...] 09/24/2025 11:14 AM EST Referral received from [facility] for epigastric abdominal pain. Reached out [...] eventual strength) 09/11 Ongoing 2. Dominant R assembler ping pong table strength at least 35# (vs 20initial, vs [...] filedocumented in this encounter Care Teams Manager Agency Relationship Specialty Start Date End Date Araceli Augustin PA [address] [place] [address] PCP - General 11/20/24 documented as of this encounter
--- OUTSIDE RECORDS SUMMARY | 2025-09-27 16:50 | XMS_ITS | Clinical Summary ---
Author Organization [facility] Address [address] [place] [address] Phone Care Team Providers Care Consulting Hr Professional Name Role Phone Araceli Augustin Primary [...] capsule. 30 each 11 5 09/15/20 25 Discontinu ed(Therapy completed) Active Problems Problem Noted Date Diagnosed Date [...] back and legs. The lumbar CT from [facility] show degenerative disc disease but not stenosis. Her description of paresthesias and leg shaking raise concerns for stenosis. Her workup at the [facility] ER did not correlate with cauda equina syndrome. She is now awaiting a lumbar spine MRI at [place]. I be happy to review that once [...] this, is currently seeing 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 [facility], had injection in the right lower rib, [...] Other specified anxiety disorders 02/09/2021 Rheumatoid arthritis ([facility] V24, [facility] V28) 12/25/2020 Carpal tunnel syndrome 01/23/2020 [...] Department Care Team Description 09/24/2025 Telephone Gastroenterology [facility] 175 [facility] 175 [facility] 200 [place] [phone] Melba Bunn MD 09/15/2025 3:45 PM EST Office Visit Orthopedic Surgery [facility] 175 [facility] [address] [place] [phone] Bessy Mesa MD 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 (CMS/HCC V24, CMS/HCC V28) (Primary Dx) 09/15/2025 Telephone Orthopedic Surgery [facility] 250 175 [facility] [address] [place] [phone] Bessy Mesa MD 09/11/2025 12:30 PM EST Treatment [facility] [address] [phone] Nichelle Milian, OT 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) 09/11/2025 Telephone Orthopedic Surgery [facility] 250 175 [facility] [address] [place] [phone] Bessy Mesa MD 09/04/2025 12:30 PM EDT Treatment [facility] [address] [phone] Shanell Bowen COTA/Ulices 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) 08/28/2025 1:30 PM EDT Treatment [facility] [address] [phone] Nichelle Milian, OT 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) 08/21/2025 12:00 PM EDT Evaluation [facility] [address] [phone] Nichelle Milian, OT 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) 08/14/2025 3:30 PM EDT Office Visit Orthopedic Surgery [facility] [address] [facility] [address] [place] [address] Von Mcclure MD Knee pain (Primary Dx); Post-traumatic osteoarthritis of left knee; Primary osteoarthritis of right knee 08/13/2025 Telephone Gastroenterology - [place] 175 [facility] [address] [facility] [address] [place] [phone] Gia Lance NP 08/12/2025 3:45 PM EDT Office Visit Orthopedic Surgery [facility] [address] [facility] [address] [place] [address] Bessy Mesa MD Wrist pain (Primary Dx); Osteochondrosis of lunate of right wrist; Surgery follow-up 08/06/2025 Results Follow-Up Gastroenterology [facility] 175 [facility] [address] [facility] [address] [facility] [address] [place] [address] Gia Lance NP 08/05/2025 Telephone Orthopedic Surgery [facility] [address] [facility] [address] [phone] Von Mcclure MD 08/04/2025 Telephone Orthopedic Surgery [facility] [address] [facility] [address] [phone] Bessy Mesa MD 07/29/2025 3:45 PM EDT Office Visit Orthopedic Surgery [facility] [address] [facility] [address] [place] [address] Bessy Mesa MD Osteochondrosis of lunate of right wrist (Primary Dx); Surgery follow-up 07/29/2025 Telephone Orthopedic Surgery [facility] [address] [facility] [address] [phone] Von Mcclure MD 07/28/2025 2:40 PM EDT Office Visit Gastroenterology [facility] 175 [facility] [address] [facility] [address] [place] [address] Gia Lance NP Erosive gastropathy (Primary Dx); Abdominal pain, chronic, right upper quadrant; History of Helicobacter pylori infection; Esophageal dysmotility; Tobacco use disorder 07/24/2025 8:40 AM EDT Consult Endocrinology - [address] [phone] Marian Turner MD Hypothyroidism (acquired) (Primary Dx); Hyperthyroidism 07/24/2025 Telephone Orthopedic Surgery [facility] 175 [facility] [address] [place] [phone] Bessy Mesa MD 07/23/2025 3:30 PM EDT Office Visit Orthopedic Surgery [facility] 175 [facility] [address] [place] [phone] Nichelle Archibald PA Surgery follow-up (Primary Dx) 07/23/2025 Telephone Orthopedic Surgery [facility] 250 175 [facility] [address] [place] [phone] Jacquelyn Sow 07/16/2025 1:10 PM EDT Anesthesia Event [facility] Main [place] [address] [place] [phone] Magda Siegel MD Chang, Ling, CRNA 07/16/2025 12:30 PM EDT - 07/16/2025 2:00 PM EDT Surgery [facility] Main OR [address] [place] [phone] Bessy Mesa MD core decompression right distal radius [08814 (CPT )] 07/16/2025 10:33 AM EDT - 07/16/2025 4:05 PM EDT Hospital Encounter [facility] Main [place] [address] [place] [phone] Bessy Mesa MD 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 (CMS/HCC V24, CMS/HCC V28) Discharge Disposition: Home or Self Care 07/16/2025 7:20 AM EDT - 07/16/2025 11:59 PM EDT Hospital Encounter [facility] Xray [address] [place] [address] Pain Discharge Disposition: Home or Self Care 07/16/2025 Telephone Gastroenterology - [place] 175 [facility] 175 [facility] [address] [place] [address] Gia Lance NP 07/15/2025 Telephone Orthopedic Surgery - [place] 250 175 [facility] 250 [place] [phone] Bessy Mesa MD 07/08/2025 6:02 PM EDT - 07/08/2025 10:10 PM EDT Emergency [facility] Emergency [address] [place] [phone] Jalil Steven MD Goebel, Mathew, MD Spinal stenosis of lumbar region, unspecified whether neurogenic claudication present (Primary Dx) Discharge Disposition: Home or Self Care 07/08/2025 3:15 PM EDT Consult Orthopedic Surgery - [place] 175 [facility] 140 [place] [address] Bessy Mesa MD Osteochondrosis of lunate of left wrist (Primary Dx) from Last 3 Months Immunizations Immunization Administration Dates Next Due Hepatitis B (Dfucvze-R-Awcwu , Recombivax HB-Adult) 19yo and older 02/21/2022,01/17/2022 [...] slipped rib syndrome, 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 Dominant R piece worker strength at least 35# (vs 20initial, vs 47 L hand) 09/11 Not met, to 27 currently 3. R wrist ext AROM at least 55 w/ tolerance for weightbearing during sit to stand 09/11 Progress noted to 52 4. R wrist flex AROM at least 45 11/ Not met, currently limited 25 5. Reported [...] Routine 10/28/2024 2:36 PM EST Atrophic arthritis ([facility] V24, [facility] V28) Routine general medical examination at a [...] LAB Comment: This test was performed at [facility] [...] Food and Drug Administration. Test performed at [facility], [address] , [place] [address] Krystina Austin MD, PhD - Cnc Service Engineer Stool Rectum structure / Unknown Non-blood Collection / Unknown 07/30/2025 9:58 AM EDT 07/30/2025 9:58 AM EDT Gia Lance NP LAB BODY FLUIDS AND STOOLS ROD ESCALANTE Final Result [facility] [address] [place] [address] * Thyroid stimulating hormone with reflex to free t4 and free t3 (07/24/2025 9:32 AM EDT) [facility] Signature TSH 1.20 0.40 - 4.00 mcIU/mL LAB CHEMISTRY METHOD 07/24/2025 12:39 PM EDT [facility] Blood Venous blood specimen / Unknown Venipuncture / Unknown 07/24/2025 9:32 AM EDT 07/24/2025 9:32 AM EDT Marian Turner MD LAB BLOOD ORDERABLES Final Res ult [facility] [address] [place] [address], * Thyroid stimulating immunoglobulin (07/24/2025 9:32 AM [...] 0.11 to 0.39 IU/L. Test performed at [facility], [address] [place] [address] Krystina Austin MD, PhD - Cnc Service Engineer Blood Venous blood specimen / Unknown Venipuncture / Unknown 07/24/2025 9:32 AM EDT 07/24/2025 9:32 AM EDT Marian Turner MD LAB BLOOD ORDERABLES Final Res ult [facility] [address] [place] [address] * Triiodothyronine free (07/24/2025 9:32 AM EDT) T3, Free 316 230 - 420 pcg/dL LAB CHEMISTRY METHOD 07/24/2025 12:38 PM EDT [facility] Blood Venous blood specimen / Unknown Venipuncture / Unknown 07/24/2025 9:32 AM EDT 07/24/2025 9:32 AM EDT Marian Turner MD LAB BLOOD ORDERABLES Final Res ult Performing Organization Address City/[facility]/ZIP Co de Phone Number [facility] [address] [place] [address], * Thyroxine free (07/24/2025 9:32 AM EDT) Free T4 1.16 0.70 - 1.80 ng/dL LAB CHEMISTRY METHOD 07/24/2025 12:38 PM EDT [facility] Blood Venous blood specimen / Unknown Venipuncture / Unknown 07/24/2025 9:32 AM EDT 07/24/2025 9:32 AM EDT [facility] Johnny ENRIQUE LAB BLOOD ORDERABLES Final Res ult Performing Organization Address [facility]/ZIP Co de Phone Number [facility] [address] [place] [address], * Tissue exam (07/16/2025 1:50 PM EDT) [...] Result [facility] [address] [place] [address], * (ABNORMAL) Culture anaerobic with gram stain (07/16/2025 1:40 PM EDT) Culture, Anaerobic No Growth of Anaerobes. 07/24/2025 8:[facility], Anaerobic Staphylococcus warneri(A) ABBEY [...] for gram stain results. 07/24/2025 8:51 AM [facility] Swab Structure of right wrist [...] DERABLES Final Result Performing Organization Address [facility] de Phone Number [facility] [address] [place] [address], [place] [phone] * Culture wound deep (07/16/2025 1:40 PM [...] DERABLES Final Result Performing Organization Address [facility] Co de Phone Number [facility] [address] [place] [address], [place] [phone] * TH AN LMA(NO CHARGE) (07/16/2025 1:23 PM EDT) Venice Spicer CRNA - 07/16/2025 1:23 PM EDT Venice [...] spinal canal stenosis T12-L1 through L4-L5, and lnyv-uw-icsbyphk bilateral L4-L5 neural foraminal stenosis. 2. Unremarkable [...] spinal canal stenosis from T12-L1 through L4-L5. Csla-rd-mswgzzfj bilateral L4-L5 neural foraminal stenosis. Unremarkable appearance [...] spinal canal stenosis from T12-L1 through L4-L5. Gdmh-ar-xlaidkcb bilateral L4-L5 neural foraminal stenosis. Unremarkable appearance of the conus medullaris and cauda equina. Paraspinous musculature intact. IMPRESSION: 1. Multilevel degenerative changes of the lumbar spine as described contributing to mild multifocal spinal canal stenosis T12-L1 through L4-L5, and aylg-pl-ackoskql bilateral L4-L5 neural foraminal stenosis. 2. Unremarkable appearance of the conus medullaris and cauda equina. This document has been electronically signed by: James Sheth MD on 07/08/2025 21:13:43 Jalil Steven MD [facility] MRI PROCEDURES Final Result * (ABNORMAL) CBC auto differential (07/08/2025 7:06 PM EDT) WBC 7.5 4.8 - 10.8 K/mcL LAB HEMETOLOGY METHOD 07/08/2025 7:22 PM EDT [facility] RBC 4.20 3.80 - 4.80 M/mcL LAB HEMETOLOGY METHOD 07/08/2025 7:22 PM EDT [facility] Hemoglobin 13.8 11.5 - 16.0 g/dL LAB HEMETOLOGY METHOD 07/08/2025 7:22 PM EDT [facility] Hematocrit 40.7 35.0 - 47.0 % LAB HEMETOLOGY METHOD 07/08/2025 7:22 PM EDT [facility] MCV 97.4 79.0 - 98.0 FL LAB HEMETOLOGY METHOD 07/08/2025 7:[facility] MCH 33.0(H) 27.0 - 32.0 pcg LAB HEMETOLOGY METHOD 07/08/2025 7:22 PM [facility] MCHC 33.9 32.0 - 37.0 g/dL LAB HEMETOLOGY METHOD 07/08/2025 7:22 [facility] RDW 12.7 11.0 - 15.0 % LAB HEMETOLOGY METHOD 07/08/2025 7:22 PM [facility] Platelets 311 130 - 400 K/mcL LAB HEMETOLOGY METHOD 07/08/2025 7:22 PM [facility] MPV 9.3 7.0 - 11.0 FL LAB HEMETOLOGY METHOD 07/08/2025 7:22 PM [facility] NRBC 0.0 <1.0 [...] PM EDT [facility] Immature Granulocytes Relative 0.3 % LAB HEMETOLOGY METHOD 07/08/2025 7:22 PM EDT [facility] Neutrophils Absolute 3.68 1.50 - 7.00 K/mcL LAB HEMETOLOGY METHOD 07/08/2025 7:22 PM EDT [facility] Lymphocytes Absolute 2.94 1.00 - 5.00 K/mcL LAB HEMETOLOGY METHOD 07/08/2025 7:22 PM EDT [facility] Monocytes Absolute 0.57 0.20 - 1.00 K/mcL LAB HEMETOLOGY METHOD 07/08/2025 7:22 PM EDT [facility] Eosinophils Absolute 0.22 0.00 - 0.50 K/mcL LAB HEMETOLOGY METHOD 07/08/2025 7:22 PM EDT [facility] Basophils Absolute 0.04 0.00 - 0.20 K/mcL LAB HEMETOLOGY METHOD 07/08/2025 7:22 PM EDT [facility] Immature Granulocytes Absolute 0.02 0.00 - 0.03 K/mcL LAB HEMETOLOGY METHOD 07/08/2025 7:22 PM EDT [facility] Blood Venous blood specimen / Unknown Venipuncture / Unknown 07/08/2025 7:06 PM EDT 07/08/2025 7:15 PM EDT us Juan F Doshi MD LAB BLOOD ORDERABLES Final Result [facility] [address] [place] [address], * Lipase (07/08/2025 7:06 PM EDT) Lipase 19 13 - 75 unit/L LAB CHEMISTRY METHOD 07/08/2025 7:54 PM EDT [facility] Blood Venous blood specimen / Unknown Venipuncture / Unknown 07/08/2025 7:06 PM EDT 07/08/2025 7:15 PM EDT Juan F Doshi MD LAB BLOOD ORDERABLES Final Result [facility] [address] [place] [address], * Comprehensive metabolic panel (07/08/2025 7:06 PM EDT) Sodium 140 133 - 145 mmol/L LAB CHEMISTRY METHOD 07/08/2025 7:54 PM [facility] Potassium 4.1 3.5 - 5.5 [...] 9.9 LAB CHEMISTRY METHOD 07/08/2025 7:54 PM EDT [facility] Calcium 9.8 8.5 - 10.5 mg/dL LAB CHEMISTRY METHOD 07/08/2025 7:54 PM EDT [facility] AST (SGOT) 23 10 - 42 unit/L LAB CHEMISTRY METHOD 07/08/2025 7:54 PM EDT [facility] ALT (SGPT) 29 10 - 60 unit/L LAB CHEMISTRY METHOD 07/08/2025 7:54 PM EDT [facility] Alkaline Phosphatase 102 42 - 121 unit/L LAB CHEMISTRY METHOD 07/08/2025 7:54 PM EDT [facility] Total Protein 6.8 6.0 - 8.0 g/dL LAB CHEMISTRY METHOD 07/08/2025 7:54 PM [facility] Albumin 4.0 3.2 - 5.0 g/dL LAB CHEMISTRY METHOD 07/08/2025 7:54 PM T [facility] Total Bilirubin 0.5 0.0 - 1.4 mg/dL LAB CHEMISTRY METHOD 07/08/2025 7:54 PM EDT [facility] Blood Venous blood specimen / Unknown Venipuncture / Unknown 07/08/2025 7:06 PM EDT 07/08/2025 7:15 PM EDT us Juan F Doshi MD LAB BLOOD ORDERABLES Final Result [facility] [address] [place] [address], * COLONOSCOPY Anesthesia - [facility]; [facility] ENDOSCOPY (06/05/2025 12:23 PM EDT) Anatomical Region [...] scheduled. Narrative 06/05/2025 12:27 PM EDT [facility] GI Patient Name: María Phillips [...] verified by the physician, the nurse, the field service analyst and the fill technician in the pre-procedure area in the [...] not prolapse). Procedure Code(s): --- Professional --- 26671, Colonoscopy, flexible; with biopsy, single or multiple Diagnosis Code(s): --- Professional --- R19.7, Diarrhea, unspecified CPT copyright 2020 [employer]. All rights reserved. The codes documented in this report are preliminary and upon plant health care technician review may be revised to meet current compliance requirements. Melba Bunn MD 06/05/2025 12:27:19 PM This report has been signed electronically.Melba Bunn MD Number of Addenda: 0 Note Initiated On: 06/05/2025 11:57 AM Scope Withdrawal Time: 0 hours 6 minutes 22 seconds Scope In: 12:10:33 PM Scope Out: 12:23:27 PM Endoscopy Department at [facility] - [address] [place] [phone] Procedure Note Melba Bunn MD - 06/05/2025 [facility] GI Patient Name: María Phillips [...] the physician, the nurse, theanesthetist and the fill technician in the pre-procedure area in the [...] not prolapse). Procedure Code(s): --- Professional --- 32762, Colonoscopy, flexible; with biopsy, singleor multiple Diagnosis Code(s): --- Professional --- R19.7, Diarrhea, unspecified CPT copyright 2020 [employer]. All rights reserved. The codes documented in this report are preliminary and upon plant health care technician reviewmay be revised to meet current compliance requirements. Melba Bunn MD 06/05/2025 12:27:19 PM This report has been signed electronically.Melba Bunn MD Number of Addenda: 0 Note Initiated On: 06/05/2025 11:57 AM Scope Withdrawal Time: 0 hours 6 minutes 22 seconds Scope In: 12:10:33 PM Scope Out: 12:23:27 PM Endoscopy Department at [facility] - [address] [place] [phone] IMPRESSION: - The examined portion of the [...] Mammo Location: [facility], [address] [place] [address], [address], . -------- FINAL REPORT -------- Dictated By: Stefani Zamora Dictated Date: 02/06/2025 09:43 ET Assigned Physician: Stefani Zamora Reviewed and Electronically Signed By: Stefani Zamora Signed Date: 02/06/2025 09:45 ET Workstation ID: [id number] Transcribed By: Self Edit Transcribed Date: 02/06/2025 [...] Mammo Location: [facility], [address] [place] [address], [facility], . -------- FINAL REPORT -------- Dictated By: Stefani Zamora Dictated Date: 02/06/2025 09:43 ET Assigned Physician: Stefani Zamora Reviewed and Electronically Signed By: Stefani Zamora Signed Date: 02/06/2025 09:45 ET Workstation ID: [id number] Transcribed By: Self Edit Transcribed Date: 02/06/2025 09:43 ET Araceli BOOTHE IMG BI PROCEDURES Final Result * Lipid panel with reflex to direct LDL (10/28/2024 2:36 PM EST) Cholesterol 196 0 - 200 mg/dL LAB CHEMISTRY METHOD 10/28/2024 4:17 PM EST [facility] Triglycerides 51 0 - 150 mg/dL LAB CHEMISTRY METHOD 10/28/2024 4:17 PM [facility] HDL 111 >=40 mg/dL LAB CHEMISTRY METHOD 10/28/2024 4:17 PM [facility] LDL Calculated 75 0 - 100 mg/dL LAB CHEMISTRY METHOD 10/28/2024 4:17 PM [facility] VLDL Cholesterol Corby 10.2 mg/dL LAB CHEMISTRY METHOD 10/28/2024 4:17 PM [facility] Non HDL Chol. (LDL+VLDL) 85 <145 mg/dL LAB CHEMISTRY METHOD 10/28/2024 4:17 PM [facility] Chol/HDL Ratio 1.8 0.0 - 4.4 LAB CHEMISTRY METHOD 10/28/2024 4:17 PM [facility] Blood Venous blood specimen / Unknown Venipuncture / Unknown 10/28/2024 2:36 PM EST 10/28/2024 3:06 PM EST Araceli BOOTHE LAB BLOOD ORDERABLES Fin al Result [facility] [address] [place] [address], * HIV Screening (05/20/2024) [facility] HIV Screening abstracted [facility] Provider HEALTH MAINTENANCE Final Result * Hepatitis C Screening (05/20/2024) [facility] Hepatitis C Screening abstracted [facility] Provider HEALTH MAINTENANCE Final Result * Cervical Cancer Screening: HPV (07/20/2023) [facility] Cervical Cancer Screening: HPV no interpreta tion,abstr acted [facility] Rickey ENRIQUE HEALTH MAINTENANCE Final Result from Last 3 Months or Most Recently Relevant to Health Maintenance Insurance [facility] CAMILA QUINONEZ [id number] Advance Directives * Full Code - Default [...] currently active code status orders. Care Teams Consulting Hr Professional Relationship Specialty Start Date End Date Araceli Augustin PA [address] [place] [phone] PCP - General 11/20/24
--- OUTSIDE RECORDS SUMMARY | 2025-09-27 16:50 | XMS_ITS | Encounter Summary ---
Author Organization [facility] Address [address] [place] [address] [place] [phone] Phone Care Team Providers Care Paint Roller Covers Supervisor Name Role Phone Vee Allan MD Primary Care Pr ovider Encounter Details Date Type Department Care Team (Late st Contact Info) Description 10/08/2020 Ancillary Orders [facility] - Orthopaedics Outpatient Practice [address] [facility], 1st [address], [address] [place] [address] Finn Bone MD [address] [place] [phone] [email or web address] Hand joint pain Social History Tobacco Use [...] hand documented in this encounter Care Teams Paint Roller Covers Supervisor Relationship Specialty Start Date End Date Vee Allan MD [address] [place] [phone] PCP - General Internal Medicine 09/01/20 documented as of this encounter Additional Source Comments The information contained in this document represents components of the legal health record. It is not the complete legal health record.[facility]
--- OUTSIDE RECORDS SUMMARY | 2025-09-27 16:50 | XMS_ITS | Encounter Summary ---
Author Organization [facility] Address [address] [place] [address] [place] [phone] Phone Care Team Providers Care Furniture Associate Name Role Phone Vee Allan MD Primary Care Pr ovider Encounter Details Date Type Department Care Team (Late st Contact Info) Description 10/08/2020 Ancillary Orders [facility] - Orthopaedics Outpatient Practice [address] [facility], 1st Floor, [address] [place] [address] Finn Bone MD [address] [place] [phone] [email or web address] Hand joint pain [...] hand documented in this encounter Care Teams Furniture Associate Relationship Specialty Start Date End Date Vee Allan MD [address] [place] [phone] PCP - General Internal Medicine 09/01/20 documented as of this encounter Additional Source Comments The information contained in this document represents components of the legal health record. It is not the complete legal health record.[facility]
--- OUTSIDE RECORDS SUMMARY | 2025-09-27 16:50 | XMS_ITS | Data Portability ---
Author Organization [facility], [address] Address [address] [place] [address] Care Team Providers Care Statistical Programmer Analyst Name Role Phone [facility] Primary Care Provi ramses Assessment No assessment recorded. Plan of Treatment Reminders Order Date Submit Date Provider Last Modified By Organization Details Last Modified Time Details Appointments None recorded. Lab rapid strep group A, throat 2022 023 [email or web address] [facility], [address] [place] [address], [address], 3 19:09:54 streptococc us group A, culture, throat 2022 023 [email or web address] [facility], [address] [place] [address], [place], [address], 3 19:09:54 Referral emergency medicine referral - left lower facial weakness and numbness x 5 days [email or web address] [facility], [address] [place], [address], 4 18:35:48 Procedures None recorded. Surgeries None recorded. Imaging None recorded. Medication Orders prednisone 20 mg tablet 2022 023 [email or web address] 5 [id number], [address] [place], [address], 4 16:05:23 benzonatate 200 mg capsule 2022 023 [email or web address] 5 [id number], [address] [place], [address], 16:05:13 Patient TargetsNo targets recorded. Patient Instructions Encounter Date Encounter Id Patient Instructions Last Modified By Organization Details Last Modified Time 12/17/2022 [id number] sore throat: car e instructions [email or web address] Not [...] care for yourself at home? Take an mdys-euf-oznqamq pain medicine. Avoid Ibuprofen, Aleve and Aspirin if . If the doctor prescribed antibiotics, take them as directed. Do not stop taking them just because you feel better. You need to take the full course of antibiotics. Be careful when taking suhp-dxj-etmjvlm cold or influenza (flu) medicines and Tylenol [...] worse. [email or web address] Not available 12/17/2022 19:07:18 05/19/2024 [id number] head or face zehra n: care instructions [...] Range : Negat aashish Not Available [facility] ([facility]) [address] [facility], [place], [address], 12/21/2022 06:07:48 12/17/1912/17/2022 rapid strep group A, throa t Unknown Analyte Normal = Negati ve Not Available [address] [place], [address], 12/17/2022 18:34:11 12/17/1912/17/2022 rapid strep group A, throa t Unknown Analyte negati ve Not Available [address] [place], [address], 12/17/2022 18:34:11 Result Notes None recorded. Problems Name Problem SNOMED Code Status Onset Date Resolution Date Notes Provider Name and Address Organization Details Recorded Time Rheumatoid arthritis 74595015 Active Nella Ayla null, [place] - [facility] 4 16:05:45 Anxiety 93789342 Active 2022 ANNETTE NORMANICA null, PA - [facility] 3 18:38:17 Hyperthyroidis m with Rock disease 24434849 Active 2022 ANNETTE LUPICA null, PA - [facility] 3 18:38:27 Numbness of face 349527721 Active 2023 Juan F Noe, DO [facility] [place], [place], [address] [facility] [place] - [facility] 4 [...] Name and Address Organization Details Recorded Time 074896 erythromy libby medicatio n hives Not available [...] weight Body temperature Respiratory rate Oxygen saturation Heart rate Systolic And Diastolic Provider Name and Address Organization Details Last Updated DateTime 3 162.56 cm 27.5 kg/m2 01757.7 8 g 97 [degF] 16 /min 98 % 70 /min 138/89 mm[Hg] ANNETTE RAYMOND PA - [facility] 3 18:41:54 Date Recorded Body height Body mass index (BMI) Body weight Pain severity - 0-10 verbal numeric rating [Score] - Reported Body temperature Respiratory rate Heart rate Oxygen saturation Systolic And Diastolic Provider Name and Address Organization Details Last Updated DateTime 4 162.56 cm 27.5 kg/m2 79095.7 8 g 5 97.9 [degF] 18 /min 89 /min 98 % 121/82 mm[Hg] Nella Ayla PA - [facility] 4 16:07:24 Social History Question Answer Notes LastModified by [employer] Details LastModified Time Tobacco Smoking Status Current [...] Much Tobacco Do You Smoke? 0.5 PPD [email or web address] Information not available 12/17/2022 Have You Recently Traveled Abroad? No [email or web address] Information not available 12/17/2022 Sex: Unknown Functional Status Question Answer Note LastModified by Organizat ion Details LastModified Time Do you use any illicit or recreational drugs? No [email or web address] Information not available 12/17/2022 Do you or have you ever used any other forms of tobacco or nicotine? No Information not available 12/17/2022 What is your level of alcohol consumption? Occasional Information not available 05/19/2024 Mental Status None recorded. Family History Relationship Description Onset Age of this Age Resolved Age Notes LastModified by Organization Details LastModified Time Unspecified Relation Disorder of thyroid gland [email or web address] Not available 2022 18:38:50 Medical History No [...] ICD10 Code Diagnosis IMO Codes Diagnosis [place] [id number] [place] [address] [address] 12/17/2022 17:31:11 12/17/2022 19:17:28 Sore throat 775546386 J02.9 [id number] [place] [address] [address] 05/19/2024 15:59:19 05/19/2024 16:21:39 Numbness of face 144451808 R20.0 ER now !!! Health Concerns Section Related Observation LastModified by Organization Detai ls LastModified Time None Recorded Concern Status LastModified by Organization Details LastModified Time None Recorded Advance Directives Directive None Recorded Payers Insurance Date Sequence Insurance Name Policy Number Policy Chacko Covered Member ID Chacko Member ID Guarantor Name 05/19/2024 2 [facility] [id number] [facility] 05/19/2024 1 [facility] - DOS PRIOR TO 2024 (PPO) [facility] [id number] [facility] 12/17/2022 2 [employer] (POS) [facility] [id number] [facility] 05/19/2024 1 [employer] - [place] - DOS ON OR BEFORE 11/05/2023 - [employer] (PPO) [facility] [id number] [facility] 05/02/2023 1 [employer] [facility] [id number] [facility] Notes Date Note Type Note Provider Name [...] Narendra Diaz NP [address] [place], [address], [place] - [facility] 12/17/2022 19:11:14 05/19/2024 text/html Facial ProblemRe ported by Patient a couple of weeks. twitching in face. x5 days having facial pain. pain level is 5/10. feels slight numbness on left side of mouth. patient also notices lower facial weakness as well. no chest pain. has slight head ache Juan F Noe DO [address] [place], [address], [place] - [facility] 05/19/2024 16:42:19 OBGyn Episode No OBEpisode recorded.
--- OUTSIDE RECORDS SUMMARY | 2025-09-27 16:51 | XMS_ITS | Patient Health Record ---
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 Name Role Phone IKER ROBLERO Unavailable [phone] CHINO YBARRA Unavailable [phone] NormFaby sheffieldin Unavailable [phone] Allergies Allergen (clinical drug ingredient) Drug/Non Drug Allergy documented on EMR Reaction Allergy Type Onset Date Status Macrolides and Ketolides hives Drug Allergy Active Results Component Value Reference Range Flag Notes TSH Rfx on Abnormal to Free T4-653052 Reviewed date:07/15/2025 03:58:09 PM Interpretation: Performing Lab:[facility], [address] [facility], Phone - [phone], Director - MDJodry Notes/Report: TSH 0.436 0.450-4.500 uIU/mL L T4,Free (Direct) 1.14 0.82-1.77 ng/dL Comp. Metabolic Panel (14)-3 54594 Reviewed date:07/15/2025 08:25:45 AM Interpretation: Performing Lab:[facility], [address] [facility], Phone - [phone], Director - MDJodry Notes/Report: Glucose 75 70-99 [...] (SGPT) 22 0-32 IU/L CBC With Differential/Platel et-561081 Reviewed date:07/15/2025 08:25:37 AM Interpretation: Performing Lab:[facility], [address] [place] [address], Phone - [phone], Director - Elsa Notes/Report: WBC 7.7 3.4-10.8 [...] % Immature Grans (Abs) 0.0 0.0-0.1 x10E3/uL Ferritin-990442 Reviewed date:07/15/2025 08:25:45 AM Interpretation: Performing Lab:[facility] [address], Phone - [phone], Director [facility] Notes/Report: Ferritin 85 15-150 ng/mL Iron and TIBC-400388 Reviewed date:07/15/2025 03:58:09 PM Interpretation: Performing Lab:[facility] [address], Phone - [phone], Director [facility] Notes/Report: Iron Bind.Cap.(TIBC) 371 250-450 ug/dL UIBC 318 131-425 ug/dL Iron 53 27-159 ug/dL Iron Saturation 14 15-55 % L Complement C4, Serum-988078 Reviewed date:02/11/2025 07:43:19 AM Interpretation: Performing Lab:[facility] [address], Phone - [phone], [facility] Notes/Report: Test(s) 414896-Nmgl-Jb-9 Ab (RDL) was developed and its performance characteristics determined by [facility]. It has not been cleared or approved by the Food and Drug Administration. Complement C4, Serum 18 12-38 mg/dL CBC With Differential/Platel et-591764 Reviewed date:02/11/2025 07:43:32 AM Interpretation: Performing Lab:[facility] [address], Phone - [phone], [facility] Notes/Report: Test(s) 650366-Twai-By-7 Ab (RDL) was developed and its performance [...] Immature Grans (Abs) 0.0 0.0-0.1 x10E3/uL [facility] Reviewed date:02/11/2025 07:42:43 AM Interpretation: Performing Lab:[facility], [address] [place] [address], [place], Phone - [phone], Director - Elsa Notes/Report: Test(s) 402815-Cuvf-Ke-5 Ab (RDL) was developed and its performance characteristics determined by [employer]. It has not been cleared or approved by the Food and Drug Administration. Sedimentation Rate-Westergren 14 0-40 mm/hr Maryan Barnett CMP14 Default A hand-written panel/profile was received from your office. In accordance with the [facility] Ambiguous Test Code Policy dated May 2003, we have completed your order by using the closest currently or formerly recognized AMA panel. We have assigned Comprehensive Metabolic Panel (14), Test Code #040660 to this request. If this is not the testing you wished to receive on this specimen, please contact the [employer] Client Inquiry/Technical Services Department to clarify the test order. We appreciate your business. Complement C3, Serum-833268 Reviewed date:02/11/2025 07:43:16 AM Interpretation: Performing Lab:[facility] [address], Phone - [phone], [facility] Notes/Report: Test(s) 199357-Naly-Ch-7 Ab (RDL) was developed and its performance characteristics determined by [facility]. It has not been cleared or approved by the Food and Drug Administration. Complement C3, Serum 119 82-167 mg/dL Anti-dsDNA Antibodies-735751 Reviewed date:02/11/2025 07:43:13 AM Interpretation: Performing Lab:[facility] [place], [address] [place] [address], Phone - [phone], [facility] Notes/Report: Test(s) 972423-Emfu-Yd-0 Ab (RDL) was developed and its performance characteristics determined by [facility]. It has not been cleared or approved by the Food and Drug Administration. Anti-DNA (DS) Ab Qn 1 0-9 IU/mL Negative <5 Equivocal 5 - 9 Positive >9 C-Reactive Protein, Cardiac- 587232 Reviewed date:02/11/2025 07:43:09 AM Interpretation: Performing Lab:[facility] [address], Phone - [phone], [facility] Notes/Report: Test(s) 126029-Okfz-Eb-0 Ab (RDL) was developed and its performance characteristics determined by [facility]. It has not been cleared or approved by the Food and Drug Administration. C-Reactive Protein, Cardiac 1.34 0.00-3.00 mg/L Relative Risk for Future Cardiovascular Event Low <1.00 Average 1.00 - 3.00 High >3.00 Creatine Kinase (CK), MB-120 816 Reviewed date:02/11/2025 07:43:06 AM Interpretation: Performing Lab:[facility] [address], Phone - [phone], [facility] Notes/Report: Test(s) 356065-Fjcv-Ti-5 Ab (RDL) was developed and its performance characteristics determined by [facility]. It has not been cleared or approved by the Food and Drug Administration. Creatine Kinase (CK), MB 1.4 0.0-5.3 ng/mL Lvrd-Ac-3-401689 Reviewed date:02/11/2025 07:43:02 AM Interpretation: Performing Lab:[facility] [address], Phone - [phone], Director - Elsa Notes/Report: Test(s) 259264-Pmpy-Rw-7 Ab (RDL) was developed and its performance characteristics determined by [facility]. It has not been cleared or approved by the Food and Drug Administration. Anti-Lakisha-1 <0.2 0.0-0.9 AI Comp. Metabolic Panel (14)-3 11103 Reviewed date:02/11/2025 07:43:25 AM Interpretation: Performing Lab:[facility] [address], Phone - [phone], Director - Elsa Notes/Report: Test(s) 092002-Sbyt-Gk-5 Ab (RDL) was developed and its performance [...] ALT (SGPT) 13 0-32 IU/L Anti-Mi-2 Ab (RDL)-435363 Reviewed date:02/11/2025 07:42:59 AM Interpretation: Performing Lab:[facility] [place], [address] [place] [address], [place], Phone - [phone], Director - Elsa Notes/Report: Test(s) 562456-Ryle-Xg-3 Ab (RDL) was developed and its performance characteristics determined by [facility]. It has not been cleared or approved by the Food and Drug Administration. Anti-Mi-2 Ab (RDL) Negative Negative Anti-Ro (SS-A) Ab (RDL)-5200 10 Reviewed date:02/11/2025 07:42:55 AM Interpretation: Performing Lab:[facility] [address], Phone - [phone], Director [facility] Notes/Report: Test(s) 058579-Bfmb-Wx-6 Ab (RDL) was developed and its performance characteristics determined by [facility]. It has not been cleared or approved by the Food and Drug Administration. Anti-Ro (SS-A) Ab (RDL) <20 <20 Units Negative: <20 Weak Positive: 20-39 Moderate Positive: 40-80 Strong Positive: >80 Anti-Sm Ab (RDL)-734426 Reviewed date:02/11/2025 07:42:50 AM Interpretation: Performing Lab:[facility] [address], Phone - [phone], Director - [facility] Notes/Report: Test(s) 605470-Uboz-Hi-8 Ab (RDL) was developed and its performance characteristics determined by [facility]. It has not been cleared or approved by the Food and Drug Administration. Anti-Sm Ab (RDL) <20 <20 Units Negative: <20 Weak Positive: 20-39 Moderate Positive: 40-80 Strong Positive: >80 Anti-La (SS-B) Ab (RDL)-5203 20 Reviewed date:02/11/2025 07:42:47 AM Interpretation: Performing Lab:[facility] [address], Phone - [phone], Director - [facility] Notes/Report: Test(s) 648588-Puui-Rq-4 Ab (RDL) was developed and its performance characteristics determined by [facility]. It has not been cleared or approved by the Food and Drug Administration. Anti-La (SS-B) Ab (RDL) <20 <20 Units Negative: <20 Weak Positive: 20-39 Moderate Positive: 40-80 Strong Positive: >80 US HEAD NECK SOFT TISSUE Reviewed date:02/10/2025 05:04:59 PM Interpretation: Performing Lab: Notes/Report: Note See Venus [facility], a member of [employer] Patient Name: MARÍA PHILLIPS Date of : 1965 Reason for Exam: ENLARGED LYMPHNODE Exam Date: 02/08/2025 [id number] EST Report Status: Final Ordering Provider: CHINO [...] Signed Date: 025 15:55 ET Workstation ID: [id number] Transcribed By: Self Edit Transcribed Date: 02/08/2025 15:52 ET CALPROTECTIN, STOOL Reviewed date:05/12/2025 05:08:37 PM Interpretation: Performing Lab: Notes/Report: Calprotectin, Fecal 16.5 <50 mcg/g <50 mcg/g Normal 50 - 120 mcg/g Borderline >120 mcg/g Abnormal Borderline results suggest repeat testing in 4 to 6 weeks. Test performed at [facility], [address] [place] [address] Krystina Austin MD, PhD - Waist Presser CULTURE WOUND DEEP Reviewed date:07/21/2025 01:17:57 PM [...] NO T ANTHRACIS A Report Susceptibility Report GASTROINTESTINAL PATHOGENS Magdalena PATRICK STUDY Reviewed date:05/08/2025 [...] performed at [facility], [address] [place] [address] Krystina Austin MD, PhD - Waist Presser HELICOBACTER PYLORI ANTIGEN, STOOL Reviewed date:08/05/2025 03:02:36 [...] [facility], [address] [address] Krystina Austin MD, PhD - Waist Presser MAMMO DIGITAL SCREENING W HERACLIO ENDY Reviewed date:02/06/2025 11:57:46 AM Interpretation: Performing Lab: Notes/Report: Note See Note [facility], a member of [employer] Patient Name: MARÍA PHILLIPS Date of : 1965 Reason for Exam: SCREENING Exam Date: 02/05/2025 [id number] EST Report Status: Final Ordering Provider: IKER [...] is recommended in 1 year. Mammo Location: [facility], [address] [place] [address], [address], . -------- FINAL REPOR T -------- Dictated By: Stefani Zamora Dictated Date: 02/06/2025 09:43 ET Assigned Physician: Stefani Zamora Reviewed and Electronically Signed By: Stefani Zamora Signed Date: 025 09:45 ET Workstation ID: [id number] Transcribed By: Self Edit Transcribed Date: 02/06/2025 09:43 ET XR CERVICAL SPINE 4-5 VIEWS Reviewed date:11/19/2024 04:14:57 PM Interpretation: Performing Lab: Notes/Report: Note See Note [facility], a member of [facility] Patient Name: MARÍA PHILLIPS Date of : 1965 Reason for Exam: OTHER Exam Date: 11/18/2024 [id number] EST Report Status: Final Ordering Provider: IKER [...] to the prior neck CTA. [place] ([id number]) -------- FINAL REPOR T -------- Dictated By: Dayami Walker i Dictated Date: 11/19/2024 13:40 ET Assigned Physician: Dayami Diehl Reviewed and Electronically Signed By: Dayami Diehl Signed Date: 025 13:45 ET Workstation ID: [id number] Transcribed By: Self Edit Transcribed Date: 11/19/2024 13:40 ET NM HEPATOBILIARY SYSTEM IMAG ING Reviewed date:05/15/2025 03:07:20 PM Interpretation: Performing Lab: Notes/Report: Note See Note [facility], a member of [facility] Patient Name: MARÍA PHILLIPS Date of : 1965 Reason for Exam: Abdominal pain, upper, recurrent, post cholecystectomy Exam Date: 05/15/2025 [id number] EST Report Status: Final Ordering Provider: ALEXEI [...] hepatobiliary scintigraphy status post cholecystectomy. Teler[place] TL ([id number]) -------- FINAL REPOR T -------- Dictated By: Dayami Walker i Dictated Date: 05/15/2025 11:46 ET Assigned Physician: Dayami Diehl Reviewed and Electronically Signed By: Dayami Diehl Signed Date: 025 11:48 ET Workstation ID: [id number] Transcribed By: Self Edit Transcribed Date: 05/15/2025 11:46 ET CAMILO IFA WITH TITER AND GIOVANNA SAMSON Reviewed date:11/01/2024 07:38:11 AM Interpretation: Performing Lab: Notes/Report: CAMILO Negative Negative CBC WITH AUTO DIFFERENTIAL Reviewed date:10/28/2024 04:25:45 [...] HRT may need to be calibrated downward. BORRELIA BURGDORFERI ANTIBOD Y Reviewed date:12/06/2024 12:06:22 PM Interpretation: Performing Lab: Notes/Report: Lyme Ab Negative Negative No laboratory evidence of infection with B. burgdorferi (Lyme disease). Negative results may occur in patients recently infected (<=14 days) with B. burgdorferi. If recent infection is suspected, repeat testing on a new sample collected in 7-14 days is recommended. XR FLUORO UP TO 1 HOUR Reviewed date:02/04/2025 05:11:16 PM Interpretation: Performing Lab: Notes/Report: Note See Note [facility], a member of [employer] Patient Name: MARÍA PHILLIPS Date of : 1965 Reason for Exam: pain Exam Date: 02/04/2025 [id number] EST Report Status: Final Ordering Provider: DAVID [...] Alexey Morton Reviewed and Electronically Signed By: Aelxey Morton Signed Date: 025 12:53 ET Workstation ID: [id number] Transcribed By: Self Edit Transcribed Date: 02/04/2025 12:51 ET TISSUE EXAM Reviewed date:06/08/2025 11:10:45 PM [...] 10% NB formalin fixed and paraffin embedded. TISSUE EXAM Reviewed date:07/20/2025 07:42:46 PM Interpretation: [...] is preferred specimen for evaluating avascular necrosis. THYROXINE FREE Reviewed date:07/24/2025 02:40:06 PM Interpretation: Performing Lab: Notes/Report: Free T4 1.16 0.70-1.80 ng/dL TRIIODOTHYRONINE FREE Reviewed date:07/24/2025 02:40:06 PM Interpretation: Performing Lab: Notes/Report: T3, Free 316 230-420 pcg/dL THYROID STIMULATING HORMONE WITH REFLEX TO FREE T4 AND FREE T3 Reviewed date:07/24/2025 02:40:06 PM Interpretation: Performing Lab: Notes/Report: TSH 1.20 0.40-4.00 mcIU/mL XR KNEE 4+ VIEWS BILAT Reviewed date:08/19/2025 08:27:06 AM Interpretation: Performing Lab: Notes/Report: Note See Note [facility], a member of [employer] Patient Name: MARÍA PHILLIPS Date of : 1965 Reason for Exam: bilateral knee pain Exam Date: 08/14/2025 [id number] EST Report Status: Final Ordering Provider: CELIA [...] progressed from prior x-rays obtained 01/22/2025. XR WRIST 3+ VIEWS RIGHT Reviewed date:09/16/2025 09:19:30 AM Interpretation: Performing Lab: Notes/Report: See Venus [facility], a member of [facility] AP, lateral, oblique of the right wrist [...] flattening and sclerosis of the lunate XR WRIST 3+ VIEWS RIGHT Reviewed date:08/13/2025 08:18:07 AM Interpretation: Performing Lab: Notes/Report: Note See Note [facility], a member of [facility] Patient Name: MARÍA PHILLIPS Date of : 1965 Reason for Exam: right wrist pain Exam Date: 08/12/2025 [id number] EST Report Status: Final Ordering Provider: DUC [...] Impression: Advanced avascular necrosis of the lunate CREATINE KINASE Reviewed date:03/24/2025 07:44:57 AM Interpretation: Performing Lab: Notes/Report: Total CK 87 22-269 unit/L XR ESOPHAGRAM Reviewed date:01/01/2025 09:27:26 AM Interpretation: Performing Lab: Notes/Report: Note See Note [facility], a member of [facility] Patient Name: MARÍA PHILLIPS Date of : 1965 Reason for Exam: DYSPHAGIA Exam Date: 12/26/2024 [id number] EST Report Status: Final Ordering Provider: BARBARA MORRISSEY PCP: IKER ROBLERO FINDINGS: Double contrast esophagram performed. COMPARISON: Esophagr am March 04, 2022 HISTORY: Patient is a 59-year-old female with history of globus sensation. Epigastric pain. 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: 1 view chest radiograph demonstrates cardiac [...] Signed Date: 025 08:28 ET Workstation ID: [id number] Transcribed By: Self Edit Transcribed Date: 12/26/2024 13:36 ET Resident/PA/RN ONCOLOGY RESEARCH: Lidia Godinez XR SHOULDER 2+ VIEWS BILAT Reviewed date:01/08/2025 05:02:44 PM Interpretation: Performing Lab: Notes/Report: Note See Note [facility], a member of [employer] Patient Name: MARÍA PHILLIPS Date of : 1965 Reason for Exam: bilateral shoulder pain Exam Date: 01/08/2025 [id number] EST Report Status: Final Ordering Provider: NICHELLE [...] 02:02:02 PM Interpretation: Performing Lab: Notes/Report: Specific [place] Urine 1.034 1.003-1.030 H pH, Urine 6.5 5.0-8.0 pH Leukocytes, Urine Negative Negative Nitrite, Urine Negative Negative Protein, Urine Trace <=Trace mg/dL Glucose, Urine Negative Negative mg/dL Ketones, Urine Negative Negative mg/dL Urobilinogen, Urine 0.2 0.2-1.0 mg/dL Bilirubin, Urine Negative Negative Blood, Urine Negative Negative XR KNEE 4+ VIEWS BILAT Reviewed date:01/27/2025 08:06:07 AM Interpretation: Performing Lab: Notes/Report: Note See Note [facility], a member of [employer] Patient Name: MARÍA PHILLIPS Date of : 1965 Reason for Exam: ilateral knee pain Exam Date: 01/22/2025 [id number] EST Report Status: Final Ordering Provider: CELIA [...] intercondylar notch. No seeming effusion. Neutral alignment. EKG Reviewed date:09/16/2025 09:19:30 AM Interpretation: Performing Lab: Notes/Report: ECGDiastolicBP 68 ECGHr 73 ECGPRInterval 158 ECGPWaveAxis 34 ECGQRSDuration 78 ECGQrsWaveAxis 33 ECGQTcInterval 404 ECGQTInterval 382 ECGSystolicBP 116 ECGTWaveAxis 31 RR_DiastolicBP 0 RR_MaxRRInterval 0 RR_MeanHR 0 RR_MeanRRInterval 0 RR_MinRRInterval 0 RR_NumBeats 0 RR_NumNormalBeats 0 RR_SystolicBP 0 US HEAD NECK SOFT TISSUE Reviewed date:01/24/2025 01:16:29 PM Interpretation: Performing Lab: Notes/Report: Note See Note [facility], a member of [employer] Patient Name: MARÍA PHILLIPS Date of : 1965 Reason for Exam: cervicalgia Exam Date: 01/24/2025 [id number] EST Report Status: Final Ordering Provider: CHINO YBARRA PCP: IKER ROBLERO [facility]: Pain. Symptoms for [...] Signed Date: 025 08:00 ET Workstation ID: [id number] Transcribed By: Self Edit Transcribed Date: 01/24/2025 07:[address] SINUSES WO CONTRAST Reviewed date:01/24/2025 12:18:38 PM Interpretation: Performing Lab: Notes/Report: Note See Note [facility], a member of [employer] Patient Name: MARÍA PHILLIPS Date of : 1965 Reason for Exam: deviated septum,sinonasal polyp Exam Date: 01/24/2025 [id number] EST Report Status: Final Ordering Provider: EDMUDN MORRISSEY PCP: IKER ROBLERO PROCEDURE: Noncontra st [...] Signed Date: 025 08:42 ET Workstation ID: [id number] Transcribed By: Self Edit Transcribed Date: 01/24/2025 08:15 ET CBC WITH AUTO DIFFERENTIAL Reviewed date:03/05/2025 07:32:33 [...] Performing Lab: Notes/Report: Ferritin 58 8-252 ng/mL XR FLUORO UP TO 1 HOUR Reviewed date:03/11/2025 11:47:24 AM Interpretation: Performing Lab: Notes/Report: Note See Note [facility], a member of [employer] Patient Name: MARÍA PHILLIPS Date of : 1965 Reason for Exam: pain Exam Date: 03/11/2025 [id number] EST Report Status: Final Ordering Provider: DAVID [...] Signed Date: 025 11:03 ET Workstation ID: [id number] Transcribed By: Self Edit Transcribed Date: 03/11/2025 11:02 ET CBC WITH AUTO DIFFERENTIAL Reviewed date:03/24/2025 07:49:47 [...] Immature Granulocytes Absolute 0.04 0.00-0.03 K/mcL H THYROID STIMULATING HORMONE Reviewed date:03/24/2025 07:44:38 AM Interpretation: Performing Lab: Notes/Report: TSH 0.79 0.40-4.00 mcIU/mL MAGNESIUM Reviewed date:03/24/2025 07:44:48 AM Interpretation: Performing Lab: Notes/Report: Magnesium 2.2 1.9-2.6 mg/dL COMPREHENSIVE METABOLIC PANE L Reviewed date:03/24/2025 [...] 3.2-5.0 g/dL Total Bilirubin 0.3 0.0-1.4 mg/dL URINALYSIS WITH REFLEX MICRO SCOPIC AND CULTURE Reviewed date:03/24/2025 07:44:34 AM Interpretation: Performing Lab: Notes/Report: Specific [place] Urine 1.010 1.003-1.030 pH, Urine 8.0 5.0-8.0 pH Leukocytes, Urine Negative Negative Nitrite, Urine Negative Negative Protein, Urine Negative <=Trace mg/dL Glucose, Urine Negative Negative mg/dL Ketones, Urine Negative Negative mg/dL Urobilinogen, Urine 0.2 0.2-1.0 mg/dL Bilirubin, Urine Negative Negative Blood, Urine Negative Negative HELICOBACTER PYLORI ANTIGEN, STOOL Reviewed date:05/13/2025 04:03:38 [...] [facility], [address] [place] [address] Krystina Austin MD, PhD - Waist Presser XR WRIST 3+ VIEWS RIGHT Reviewed date:05/15/2025 07:58:21 AM Interpretation: Performing Lab: Notes/Report: Note See Note [facility], a member of [employer] Patient Name: MARÍA PHILLIPS Date of : 1965 Reason for Exam: Exam Date: 05/14/2025 [id number] EST Report Status: Final Ordering Provider: OLAF KAPLAN PCP: IKER ROBLERO Please see combined report with radiographs of the right hand. -------- FINAL REPOR T -------- Dictated By: Mauro Wright Dictated Date: 05/15/2025 07:41 ET Assigned Physician: Mauro Wright Reviewed and Electronically Signed By: Mauro Wright Signed Date: 07:41 ET Workstation ID: [id number] Transcribed By: Self Edit Transcribed Date: 05/15/2025 07:41 ET XR HAND 3+ VIEWS RIGHT Reviewed date:05/15/2025 07:58:11 AM Interpretation: Performing Lab: Notes/Report: Note See Note [facility], a member of [facility] Patient Name: MARÍA PHILLIPS Date of : 1965 Reason for Exam: pain Exam Date: 05/14/2025 [id number] EST Report Status: Final Ordering Provider: OLAF [...] osteoarthritis of the first carpal-metacarpal articulation. Code 07164, 65039 -------- FINAL REPOR T -------- Dictated By: Mauro Wright Dictated Date: 05/15/2025 07:41 ET Assigned Physician: Mauro Wright Reviewed and Electronically Signed By: Mauro Wright Signed Date: 07:44 ET Workstation ID: [id number] Transcribed By: Self Edit Transcribed Date: 05/15/2025 07:[address] CHEST WO CONTRAST Reviewed date:06/03/2025 12:20:20 PM Interpretation: Performing Lab: Notes/Report: Note See Note [facility], a member of [employer] Patient Name: MARÍA PHILLIPS Date of : 1965 Reason for Exam: PULMONARY NODULE Exam Date: 05/28/2025 [id number] EST Report Status: Final Ordering Provider: IKER ROBLERO PCP: IKER ROBLERO History: Pulmonary nodule follow-up. Comparison: 12/05/24 Technique: Helical volumetric imaging of the thorax was performed without IV contrast. DLP: 279.09 mGy/cm ShareThe Callahan Iterative reconstruction technique Findings: The trachea and [...] 2. No developing thoracic lymphaden[place] ([id number]) -------- FINAL REPOR T -------- Dictated By: Dayami Walker i Dictated Date: 06/02/2025 09:00 ET Assigned Physician: Dayami Diehl Reviewed and Electronically Signed By: Dayami Diehl Signed Date: 025 09:13 ET Workstation ID: [id number] Transcribed By: Self Edit Transcribed Date: 06/02/2025 09:00 ET Reason For Referral Reason [facility] Diagnosis 1 Shoulder pain, unspe cified chronicity, unspecified laterality (M25.519) Referral Organization [facility] [address] Referring Provider First Name IKER Referring Provider Last Name [place] Referring Provider Speciality Preventive Medicine Referred Provider Specialty Orthopedic S urgery General Notes Letitia Cox 025 10:47:57 AM > Referral faxed over to [facility] for Bilateral shoulder pain P. [phone] Referral Priority Routine Reason Sleep Medicine Servi [facility]; sleep study; loud snoring Diagnosis 1 Loud snoring (R06.83 ) Referral Organization [facility] [address] Referring Provider First Name IKER Referring Provider Last Name [place] Referring Provider Speciality Preventive Medicine Referred Provider Specialty Sleep Medici ne General Notes [address] [facility] [address]. [address] [place] (p) [phone], (f) [phone] Clinical Notes Maryann Cox 02:10:39 PM > I called the office and they informed me that they had reached out to the patient and are just waiting for a callback to schedule an appt Referral Priority Routine Reason pain management : ri ght rib pain Diagnosis 1 Rib pain on right si de (R07.81) Referral Organization [facility] [address] Referring Provider First Name IKER Referring Provider Last Name [place] Referring Provider Speciality Preventive Medicine Referred Provider Specialty Pain Medicin e Clinical Notes Zoila Narayanan 04/25 09:57:57 AM > Family Physiatry, Address: [address] [place] [address], , Fax number: [phone], Maryann Cox 06/17/2025 02:17:36 PM > The patient was scheduled for 06/05 but she no showed and has not rescheduled yet Referral Priority Routine Reason [facility]; easy bruising Diagnosis 1 Easy bruising (R23.3 ) Referral Organization [facility] [address] Referring Provider First Name IKER Referring Provider Last Name [place] Referring Provider Speciality Preventive Medicine Referred Provider Specialty Dermatology General Notes [address] Faustino. 106, (p) [phone], (f) [phone] Clinical Notes Caren Narayanan 08:43:03 AM > referral faxed with notes Referral Priority Routine Reason Dr. Hoffman Diagnosis 1 Pulmonary nodule (R9 1.1) Diagnosis 2 Centrilobular emphys christine (J43.2) Referral Organization [facility] [address] Referring Provider First Name IKER Referring Provider Last Name [place] Referring Provider Speciality Preventive Medicine Referred Provider Specialty Pulmonology General Notes XAVIER VILLANUEVA 06/09 08:34:07 AM > Referral faxed, Dr Hoffman - Pulmonology and Sleep Medicine, [address] [place] [address], , Clinical Notes Kenny Maryann 10/2025 02:17:04 PM > The patient was scheduled for 06/05 but she no showed and has not rescheduled yet Referral Priority Routine Reason [facility] Diagnosis 1 Chronic pain syndrom e (G89.4) Diagnosis 2 Cervical pain (M54.2 ) Referral Organization [facility] [address] Referring Provider First Name IKER Referring Provider Last Name [place] Referring Provider [facility] Referred Provider Specialty Orthopedic S urgery General Notes XAVIER VILLANUEVA 06/26 08:13:11 AM > Referral has been faxed, [facility], [address] [place] [phone], , Clinical Notes Maryann Cox 02:25:30 PM > I called the office, and they informed me they had reached out to the patient multiple times with no response. I then spoke with the patient, who stated she was not aware a referral had been sent. She said she will call the office back Referral Priority Stat Reason Spine Surgery - [facility] Diagnosis 1 Lumbar back pain (M5 4.50) Diagnosis 2 Chronic lumbar radic ulopathy (M54.16) Referral Organization [facility] [address] Referring Provider First Name IKER Referring Provider Last Name [place] Referring Provider [facility] Preventive Medicine Referred Provider Specialty Spinal Cord Injury Medicine General Notes XAVIER VILLANUEVA 07/08 03:54:08 PM > referral has been initiated & faxed, [facility]- Spine Surgery, [address], [address], [place], , Most recent MRI was done at [facility] 01/14/25 Clinical Notes Maryann Cox 01/2025 02:17:15 PM > I called [facility] Spine Surgery, and they are requesting an updated MRI taken within the past year. They asked that we fax it to their office. Once received, they will review the patient's records and contact her to schedule., Maryann Cox 07/17/2025 11:04:32 AM > Scheduled for 07/23 at 1 pm. Pt aware Referral Priority Stat Reason [facility] Gastroenterology Diagnosis 1 Epigastric abdominal pain (R10.13) Referral Organization [facility] [address] Referring Provider First Name IKER Referring Provider Last Name ANNIKA Referring Provider Speciality Preventive Medicine Referred Provider Specialty Gastroentero logy General Notes XAVIER VILLANUEVA 09/24 08:31:39 AM EST > Referral has been faxed, [facility] - Gastroenterology, [facility], [address] [place] [address], Referral Priority Urgent Medications Medication SIG (Take, Route, Frequency, Duration) Notes Start Date End Date Status Polymyxin B-Trimethoprim 46319-3.1 UNIT/ML Solution 1 drop into affected eye [...] Status W/U Status Risk Notes Problem Hyperkalemia (76471146) Hyperkalemia (E87.5) Active confirmed Problem Chronic pain syndrome (133712983) Chronic pain syndrome (G89.4) Active confirmed Problem Centrilobular emphysema (07978931) Centrilobular emphysema (J43.2) Active confirmed Problem Pulmonary nodule (124333146) Pulmonary nodule (R91.1) Active confirmed Problem Breathing painful (62857098) Rib pain on right side (R07.81) Active confirmed Problem Tremor (02835306) Tremor (R25.1) Active confirm ed Problem Chronic fatigue syndrome (02224321) Chronic fatigue (R53.82) Active confirmed Problem Paresthesia (finding) (33429981) Paresthesias (R20.2) Active confirmed Problem Lumbar radiculopathy (310910765) Chronic lumbar radiculopathy (M54.16) Active confirmed Problem Cervical pain (05308661) Cervical pain (M54.2) Active confirmed Problem Mixed anxiety and depressive disorder (247783654) Depression with anxiety (F41.8) Active confirmed Problem 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 Problem Inactive tuberculosis (finding) (01651872) History of latent tuberculosis (Z86.15) Active confirmed Problem Rheumatoid arthritis (23619961) Rheumatoid arthritis involving multiple sites, unspecified whether rheumatoid factor present (M06.9) Active confirmed Problem Rheumatoid arthritis (04707921) Rheumatoid arthritis involving multiple sites with positive rheumatoid factor (M05.79) Active confirmed Problem Lymphadenopathy (80685137) Lymphadenopathy, axillary (R59.0) Active confirmed Problem Cervical spondylosis (236836316) Cervical spondylosis (M47.812) Active confirmed Problem General weakness (47019095) Generalized weakness (R53.1) Active confirmed Problem 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3 [facility] [address] [address] 11/18/2024 IKER ROBLERO Tremor R25.1 ; Cervi veronica spondylosis M47.812 ; Rock's disease E06.3 ; Pain in right arm M79.601 ; Pain in left arm M79.602 ; History of recent fall Z91.81 ; Rheumatoid arthritis involving multiple sites with positive rheumatoid factor M05.79 ; Slipped rib syndrome M94.0 and Depression with anxiety F41.8 [facility] [address] [address] 01/22/2025 CHINO BIRKS Neck pain on right s angela M54.2 ; Rheumatoid arthritis involving multiple sites with positive rheumatoid factor M05.79 ; Slipped rib syndrome M94.0 ; Rock's disease E06.3 and Depression with anxiety F41.8 [facility] [address] [address] 02/03/2025 CHINO BIRKS Lymphadenopathy, axillary R59.0 ; Rheumatoid arthritis involving multiple sites, unspecified whether rheumatoid factor present M06.9 ; Rock's disease E06.3 ; Slipped rib syndrome M94.0 ; Anxiety, generalized F41.1 and Tendon calcification M65.80 [facility] [address] [address] 03/05/2025 IKER ROBLERO Rib pain on right si de R07.81 ; Annual physical exam Z00.00 ; Chronic fatigue R53.82 ; Hyperkalemia E87.5 ; Slipped rib syndrome M94.0 ; Depression with anxiety F41.8 and Rheumatoid arthritis involving multiple sites with positive rheumatoid factor M05.79 [facility] [address] [address] 03/21/2025 IKER ROBLERO Heart palpitations R00.2 ; Weakness R53.1 and Dyspnea on exertion R06.09 [facility] [address] [address] 04/23/2025 IKER ROBLERO Depression with anxi ety F41.8 ; Heavy alcohol use F10.90 ; Chronic pain syndrome G89.4 ; Slipped rib syndrome M94.0 ; Rheumatoid arthritis involving multiple sites with positive rheumatoid factor M05.79 ; Pulmonary nodule R91.1 ; History of latent tuberculosis Z86.15 and Loud snoring R06.83 [facility] [address] 05/05/2025 IKER ROBLERO Spontaneous ecchymos es R23.3 ; Skin tear of left upper extremity S41.112A ; Irregular bowel habits R19.8 ; Depression with anxiety F41.8 ; Chronic pain syndrome G89.4 and Rheumatoid arthritis involving multiple sites with positive rheumatoid factor M05.79 [facility] [address] [address] 06/18/2025 IKER ROBLERO Chronic pain syndrom e G89.4 ; Cervical pain M54.2 and Recurrent low back pain M54.50 [facility] [address] 09/04/2025 IKER ROBLERO Redness of left eye H57.89 [facility] [address] [address] 10/29/2024 IKER ROBLERO [facility] [address] [address] 11/04/2024 KIER ROBLERO [facility] [address] [address] 11/07/2024 IKER ROBLERO [facility] [address] [address] 11/19/2024 IKER ANNIKA [facility] [address] [place] [address] 12/03/2024 [place]KER [place] [facility] [address] [place] [address] 12/13/2024 IKER [place] [facility] [address] [place] [address] 12/13/2024 IKER ROBLERO Generalized weakness R53.1 and Paresthesias R20.2 [facility] [address] [place] [address] 12/16/2024 IKER [place] [facility] [address] [place] [address] 12/26/2024 IKER [place] [facility] [address] [place] [address] 12/31/2024 IKER [place] [facility] [address] [place] [address] 01/02/2025 IKER [place] [facility] [address] [place] [address] 01/07/2025 IKER [place] [facility] [address] [place] [address] 01/21/2025 IKER [place] [facility] [address] [place] [address] 01/24/2025 IKER [place] [facility] [address] [place] [address] 02/03/2025 IKER [place] [facility] [address] [place] [address] 02/03/2025 IKER [place] [facility] [address] [place] [address] 02/10/2025 IKER [place] [facility] [address] [place] [address] 03/05/2025 IKER LEDESMAHAM Chronic fatigue R53. 82 ; Elevated lipids E78.5 ; Anemia due to vitamin B12 deficiency, unspecified B12 deficiency type D51.9 and Vitamin D deficiency E55.9 [facility] [address] [place] [address] 03/05/2025 IKER [place] [facility] [address] [place] [address] 03/05/2025 [place]KER [place] [facility] [address] [place] [address] 03/05/2025 IKER [place] [facility] [address] [place], [place] 03/21/2025 [place]KER [place] [facility] [address] [place] [address] 03/24/2025 IKER [place] [facility] [address] [place] [address] 04/22/2025 IKER [place] [facility] [address] [place], [place] 04/25/2025 [place]KER [place] [facility] [address] [place] [address] 05/01/2025 IKER [place] [facility] [address] [place] [address] 05/05/2025 IKER [place] [facility] [address] [place] [address] 05/06/2025 IKER [place] [facility] [address] [place], [place] 05/13/2025 IKER [place] [facility] [address] [place], [place] 05/13/2025 IKER [place] [facility] [address] [place] 06/03/2025 [place]KER [place] [facility] [address] [place], [place] 06/18/2025 [place]KER [place] [facility] [address] [place] [address] 06/19/2025 IKER [place] Cervical pain M54.2 ; Cervical spondylosis M47.812 and Chronic pain syndrome G89.[address] [facility] [address] [place] [address] 06/25/2025 [place]KER [place] [facility] [address] [place] [address] 07/08/2025 IKER LEDESMAHAM [facility] [address] [place] [address] 07/08/2025 IKER LEDESMAHAM [facility] [address] [place] [address] 07/09/2025 [place]KER [place] [facility] [address] [place] [address] 07/15/2025 IKER LEDESMAHAM Rock's disease E06.3 [facility] [address] [place] [address] 08/14/2025 [place]KER [place] [facility] [address] [place] [address] 09/04/2025 IKER [place] [facility] [address] [place] [address] 09/19/2025 IKER [place] [facility] [address] [place] [address] 09/24/2025 IKER [place] [facility] [address] [place] [address] 12/09/2024 IKER [place] [facility] [address] [place] [address] 12/13/2024 IKER [place] [facility] [address] [place] [address] 12/14/2024 IKER [place] [facility] [address] [place] [address] 12/14/2024 IKER [place] [facility] [address] [place] [address] 12/15/2024 IKER [place] [facility] [address] [place] [address] 12/18/2024 IKER [place] [facility] [address] [place] [address] 01/01/2025 IKER [place] [facility] [address] [place] [address] 01/21/2025 IKER [place] [facility] [address] [place] [address] 01/27/2025 [facility] Breast cancer screen ing by mammogram Z12.31 [facility] [address] [place] [address] 03/21/2025 IKER [place] [facility] [address] [place] [address] 04/30/2025 [facility] [address] [place] [address] 05/01/2025 [facility] [address] [place] [address] 05/01/2025 [facility] [address] [place] [address] 06/06/2025 [facility] [address] [place] [address] 06/09/2025 [facility] [address] [place] [address] 06/14/2025 [facility] [address] [place] [address] 06/20/2025 [facility] [address] [place] [address] 06/23/2025 [facility] [address] [place] [address] 06/30/2025 [facility] [address] [place] [address] 07/12/2025 [facility] Adult general medica l exam Z00.00 and Screening for thyroid disorder Z13.29 [facility] [address] [place] [address] 07/15/2025 [facility] [address] [place] [address] 07/16/2025 [facility] [address] [place] [address] 09/04/2025 [facility] [address] [place] [address] 09/22/2025 [facility] [address] [place] [address] 09/22/2025 IKER ANNIKA [facility] [address] [place] [address] 09/22/2025 IKER ANNIKA [facility] [address] [place] [address] 09/23/2025 IKER ANNIKA [facility] [address] [place] [address] 09/23/2025 IKER ANNIKA [facility] [address] [place] [address] 09/23/2025 IKER ANNIKA [facility] [address] [place] [address] 09/23/2025 IKER ANNIKA [facility] [address] [place] [address] 09/23/2025 IKER ANNIKA [facility] [address] [place] [address] 09/23/2025 IKER ANNIKA [facility] [address] [place] [address] 09/23/2025 IKER ANNIKA [facility] [address] [place] [address] 09/24/2025 IKER ANNIKA [facility] [address] [place] [address] 09/26/2025 IKER ANNIKA [facility] [address] [place] [address] 09/26/2025 IKER ANNIKA [facility] [address] [place] [address] 09/26/2025 IKER ANNIKA Assessments Encounter Date Diagnosis [...] Patient reports history of RA. Follows with substance abuse prevention coordinator Dr. Clark out of [place]. Has been treated previously with Humira, Enbrel, [...] was diagnosed by Dr. Dubon out of [place], [place]. Taking methocarbamol 750 mg 3 times [...] reviewed. Dictation completed with the use of [employer] voice recognition software, prone to medical misidentifications [...] Patient reports history of RA. Follows with substance abuse prevention coordinator Dr. Clark out of [place]. Has been treated previously with Humira, Enbrel, [...] was diagnosed by Dr. Dubon out of [place], [place]. Taking methocarbamol 750 mg 3 times [...] reviewed. Dictation completed with the use of [employer] voice recognition software, prone to medical misidentifications [...] for 11/20/2024. #Recent fall: Patient seen at [facility] ED 11/02/2024 s/p fall at work. [...] diffuse joint pain and fatigue. Follows with substance abuse prevention coordinator Dr. Clark out of [place], records requested and not yet available for my review. 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 States this was diagnosed by Dr. Dubon out of [place], [place]. Taking methocarbamol 750 mg 3 times [...] reviewed. Dictation completed with the use of [employer] voice recognition software, prone to medical misidentifications [...] for 11/20/2024. #Recent fall: Patient seen at [facility] ED 11/02/2024 s/p fall at work. [...] diffuse joint pain and fatigue. Follows with substance abuse prevention coordinator Dr. Clark out of [place], records requested and not yet available for my review. 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 States this was diagnosed by Dr. Dubon out of [place], [place]. Taking methocarbamol 750 mg 3 times [...] reviewed. Dictation completed with the use of [employer] voice recognition software, prone to medical misidentifications [...] was diagnosed by Dr. Dubon out of [place], [place]. Taking methocarbamol 750 mg 3 times [...] Dictation was accomplished with the use of [employer] voice recognition software, which is prone to [...] was diagnosed by Dr. Dubon out of [place], [place]. Taking methocarbamol 750 mg 3 times [...] Dictation was accomplished with the use of [employer] voice recognition software, which is prone to [...] was diagnosed by Dr. Dubon out of [place], [place]. Taking methocarbamol 750 mg 3 times [...] Dictation was accomplished with the use of [employer] voice recognition software, which is prone to [...] was diagnosed by Dr. Dubon out of [place], [place]. Taking methocarbamol 750 mg 3 times [...] Dictation was accomplished with the use of [employer] voice recognition software, which is prone to [...] arthritis: + Rheumatoid factor (152). Follows with substance abuse prevention coordinator Dr. Olaf Kaplan out of [place]. Follow-up labs including CAMILO, ESR/CRP, and comprehensive [...] Follows with psychiatric provider Clarice Lara with [facility]. Taking clonazepam 0.5 mg once daily [...] dysfunction. #Hyperkalemia: Patient reports she was at [facility] ED recently at which time her [...] reviewed. Dictation completed with the use of [employer] voice recognition software, prone to medical misidentifications [...] arthritis: + Rheumatoid factor (152). Follows with substance abuse prevention coordinator Dr. Olaf Kaplan out of [place]. Follow-up labs including CAMILO, ESR/CRP, and comprehensive [...] Follows with psychiatric provider Clarice Lara with [facility]. Taking clonazepam 0.5 mg once daily [...] dysfunction. #Hyperkalemia: Patient reports she was at [facility] ED recently at which time her [...] reviewed. Dictation completed with the use of [employer] voice recognition software, prone to medical misidentifications [...] reviewed. Dictation completed with the use of [employer] voice recognition software, prone to medical misidentifications [...] reviewed. Dictation completed with the use of [employer] voice recognition software, prone to medical misidentifications [...] ER follow-up hospital follow-up. María presented to [facility] ED 04/19/2025 with chief complaint [...] any pain medication. Previously followed with paint formulator Dr. Trivedi who provided steroid injections. Historically [...] added opioid use. WIll refer to paint formulator with goal of establishing safe pain management regimen. #RA: Follows with Olaf Kaplan MD out of [place]. Discussed possibility of chronic pain being related [...] reviewed. Dictation completed with the use of [employer] voice recognition software, prone to medical misidentifications [...] ER follow-up hospital follow-up. María presented to [facility] ED 04/19/2025 with chief complaint [...] any pain medication. Previously followed with paint formulator Dr. Trivedi who provided steroid injections. Historically [...] added opioid use. WIll refer to paint formulator with goal of establishing safe pain management regimen. #RA: Follows with Olaf Kaplan MD out of [place]. Discussed possibility of chronic pain being related [...] TID without symptom improvement. Follows with paint formulator Dr. Trivedi. Historically the patient has tried [...] reviewed. Dictation completed with the use of [employer] voice recognition software, prone to medical misidentifications [...] TID without symptom improvement. Follows with paint formulator Dr. Trivedi. Historically the patient has tried [...] reviewed. Dictation completed with the use of [employer] voice recognition software, prone to medical misidentifications [...] without significant symptom improvement. Follows with paint formulator Dr. Trivedi, orthopedic provider Nichelle Carrillo PA-C [...] reviewed. Dictation completed with the use of [employer] voice recognition software, prone to medical misidentifications [...] without significant symptom improvement. Follows with paint formulator Dr. Trivedi, orthopedic provider Nichelle Carrillo PA-C [...] reviewed. Dictation completed with the use of [employer] voice recognition software, prone to medical misidentifications [...] reviewed. Dictation completed with the use of [employer] voice recognition software, prone to medical misidentifications [...] without significant symptom improvement. Follows with paint formulator Dr. Trivedi, orthopedic provider Nichelle Carrillo PA-C [...] reviewed. Dictation completed with the use of [employer] voice recognition software, prone to medical misidentifications [...] TID without symptom improvement. Follows with paint formulator Dr. Trivedi. Historically the patient has tried [...] reviewed. Dictation completed with the use of [employer] voice recognition software, prone to medical misidentifications [...] reviewed. Dictation completed with the use of [employer] voice recognition software, prone to medical misidentifications [...] ER follow-up hospital follow-up. María presented to [facility] ED 04/19/2025 with chief complaint [...] any pain medication. Previously followed with paint formulator Dr. Trivedi who provided steroid injections. Historically [...] added opioid use. WIll refer to paint formulator with goal of establishing safe pain management regimen. #RA: Follows with Olaf Kaplan MD out of [place]. Discussed possibility of chronic pain being related [...] reviewed. Dictation completed with the use of [employer] voice recognition software, prone to medical misidentifications [...] arthritis: + Rheumatoid factor (152). Follows with substance abuse prevention coordinator Dr. Olaf Kaplan out of [place]. Follow-up labs including CAMILO, ESR/CRP, and comprehensive [...] Follows with psychiatric provider Clarice Lara with [facility]. Taking clonazepam 0.5 mg once daily [...] dysfunction. #Hyperkalemia: Patient reports she was at [facility] ED recently at which time her [...] reviewed. Dictation completed with the use of [employer] voice recognition software, prone to medical misidentifications [...] was diagnosed by Dr. Dubon out of [place], [place]. Taking methocarbamol 750 mg 3 times [...] Dictation was accomplished with the use of [employer] voice recognition software, which is prone to [...] was diagnosed by Dr. Dubon out of [place], [place]. Taking methocarbamol 750 mg 3 times [...] Dictation was accomplished with the use of [employer] voice recognition software, which is prone to [...] for 11/20/2024. #Recent fall: Patient seen at [facility] ED 11/02/2024 s/p fall at work. [...] diffuse joint pain and fatigue. Follows with substance abuse prevention coordinator Dr. Clark out of [place], records requested and not yet available for my review. 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 States this was diagnosed by Dr. Dubon out of [place], [place]. Taking methocarbamol 750 mg 3 times [...] reviewed. Dictation completed with the use of [employer] voice recognition software, prone to medical misidentifications [...] Patient reports history of RA. Follows with substance abuse prevention coordinator Dr. Clark out of [place]. Has been treated previously with Humira, Enbrel, [...] was diagnosed by Dr. Dubon out of [place], [place]. Taking methocarbamol 750 mg 3 times [...] reviewed. Dictation completed with the use of [employer] voice recognition software, prone to medical misidentifications [...] for 11/20/2024. #Recent fall: Patient seen at [facility] ED 11/02/2024 s/p fall at work. [...] diffuse joint pain and fatigue. Follows with substance abuse prevention coordinator Dr. Clark out of [place], records requested and not yet available for my review. 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 States this was diagnosed by Dr. Dubon out of [place], [place]. Taking methocarbamol 750 mg 3 times [...] reviewed. Dictation completed with the use of [employer] voice recognition software, prone to medical misidentifications [...] Patient reports history of RA. Follows with substance abuse prevention coordinator Dr. Clark out of [place]. Has been treated previously with Humira, Enbrel, [...] was diagnosed by Dr. Dubon out of [place], [place]. Taking methocarbamol 750 mg 3 times [...] questions/concerns arise. Case discussed with collaborating physician Veila Morrison who has reviewed the assessment/plan. Chart, medications, labs, and vital signs reviewed. Dictation completed with the use of [employer] voice recognition software, prone to medical misidentifications [...] was diagnosed by Dr. Dubon out of [place], [place]. Taking methocarbamol 750 mg 3 times [...] Dictation was accomplished with the use of [employer] voice recognition software, which is prone to [...] was diagnosed by Dr. Dubon out of [place], [place]. Taking methocarbamol 750 mg 3 times [...] Dictation was accomplished with the use of [employer] voice recognition software, which is prone to [...] arthritis: + Rheumatoid factor (152). Follows with substance abuse prevention coordinator Dr. Olaf Kaplan out of [place]. Follow-up labs including CAMILO, ESR/CRP, and comprehensive [...] Follows with psychiatric provider Clarice Lara with [facility]. Taking clonazepam 0.5 mg once daily [...] dysfunction. #Hyperkalemia: Patient reports she was at [facility] ED recently at which time her [...] reviewed. Dictation completed with the use of [employer] voice recognition software, prone to medical misidentifications [...] TID without symptom improvement. Follows with paint formulator Dr. Trivedi. Historically the patient has tried [...] reviewed. Dictation completed with the use of [employer] voice recognition software, prone to medical misidentifications [...] ER follow-up hospital follow-up. María presented to [facility] ED 04/19/2025 with chief complaint [...] any pain medication. Previously followed with paint formulator Dr. Trivedi who provided steroid injections. Historically [...] added opioid use. WIll refer to paint formulator with goal of establishing safe pain management regimen. #RA: Follows with Olaf Kaplan MD out of [place]. Discussed possibility of chronic pain being related [...] reviewed. Dictation completed with the use of [employer] voice recognition software, prone to medical misidentifications [...] TID without symptom improvement. Follows with paint formulator Dr. Trivedi. Historically the patient has tried [...] reviewed. Dictation completed with the use of [employer] voice recognition software, prone to medical misidentifications [...] ER follow-up hospital follow-up. María presented to [facility] ED 04/19/2025 with chief complaint [...] any pain medication. Previously followed with paint formulator Dr. Trivedi who provided steroid injections. Historically [...] added opioid use. WIll refer to paint formulator with goal of establishing safe pain management regimen. #RA: Follows with Olaf Kaplan MD out of [place]. Discussed possibility of chronic pain being related [...] reviewed. Dictation completed with the use of [employer] voice recognition software, prone to medical misidentifications [...] arthritis: + Rheumatoid factor (152). Follows with substance abuse prevention coordinator Dr. Olaf Kaplan out of [place]. Follow-up labs including CAMILO, ESR/CRP, and comprehensive [...] Follows with psychiatric provider Clarice Lara with [facility]. Taking clonazepam 0.5 mg once daily [...] dysfunction. #Hyperkalemia: Patient reports she was at [facility] ED recently at which time her [...] reviewed. Dictation completed with the use of [employer] voice recognition software, prone to medical misidentifications [...] was diagnosed by Dr. Dubon out of [place], [place]. Taking methocarbamol 750 mg 3 times [...] Dictation was accomplished with the use of [employer] voice recognition software, which is prone to [...] was diagnosed by Dr. Dubon out of [place], [place]. Taking methocarbamol 750 mg 3 times [...] Dictation was accomplished with the use of [employer] voice recognition software, which is prone to [...] for 11/20/2024. #Recent fall: Patient seen at [facility] ED 11/02/2024 s/p fall at work. [...] diffuse joint pain and fatigue. Follows with substance abuse prevention coordinator Dr. Clark out of [place], records requested and not yet available for my review. 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 States this was diagnosed by Dr. Dubon out of [place], [place]. Taking methocarbamol 750 mg 3 times [...] reviewed. Dictation completed with the use of [employer] voice recognition software, prone to medical misidentifications [...] Patient reports history of RA. Follows with substance abuse prevention coordinator Dr. Clark out of [place]. Has been treated previously with Humira, Enbrel, [...] was diagnosed by Dr. Dubon out of [place], [place]. Taking methocarbamol 750 mg 3 times [...] reviewed. Dictation completed with the use of [employer] voice recognition software, prone to medical misidentifications [...] for 11/20/2024. #Recent fall: Patient seen at [facility] ED 11/02/2024 s/p fall at work. [...] diffuse joint pain and fatigue. Follows with substance abuse prevention coordinator Dr. Clark out of [place], records requested and not yet available for my review. 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 States this was diagnosed by Dr. Dubon out of [place], [place]. Taking methocarbamol 750 mg 3 times [...] reviewed. Dictation completed with the use of [employer] voice recognition software, prone to medical misidentifications [...] Patient reports history of RA. Follows with substance abuse prevention coordinator Dr. Clark out of [place]. Has been treated previously with Humira, Enbrel, [...] was diagnosed by Dr. Dubon out of [place], [place]. Taking methocarbamol 750 mg 3 times [...] reviewed. Dictation completed with the use of [employer] voice recognition software, prone to medical misidentifications [...] was diagnosed by Dr. Dubon out of [place], [place]. Taking methocarbamol 750 mg 3 times [...] Dictation was accomplished with the use of [employer] voice recognition software, which is prone to [...] arthritis: + Rheumatoid factor (152). Follows with substance abuse prevention coordinator Dr. Olaf Kaplan out of [place]. Follow-up labs including CAMILO, ESR/CRP, and comprehensive [...] Follows with psychiatric provider Clarice Lara with [facility]. Taking clonazepam 0.5 mg once daily [...] dysfunction. #Hyperkalemia: Patient reports she was at [facility] ED recently at which time her [...] reviewed. Dictation completed with the use of [employer] voice recognition software, prone to medical misidentifications [...] TID without symptom improvement. Follows with paint formulator Dr. Trivedi. Historically the patient has tried [...] reviewed. Dictation completed with the use of [employer] voice recognition software, prone to medical misidentifications [...] ER follow-up hospital follow-up. María presented to [facility] ED 04/19/2025 with chief complaint [...] any pain medication. Previously followed with paint formulator Dr. Trivedi who provided steroid injections. Historically [...] added opioid use. WIll refer to paint formulator with goal of establishing safe pain management regimen. #RA: Follows with Olaf Kaplan MD out of [place]. Discussed possibility of chronic pain being related [...] reviewed. Dictation completed with the use of [employer] voice recognition software, prone to medical misidentifications [...] ER follow-up hospital follow-up. María presented to [facility] ED 04/19/2025 with chief complaint [...] any pain medication. Previously followed with paint formulator Dr. Trivedi who provided steroid injections. Historically [...] added opioid use. WIll refer to paint formulator with goal of establishing safe pain management regimen. #RA: Follows with Olaf Kaplan MD out of [place]. Discussed possibility of chronic pain being related [...] reviewed. Dictation completed with the use of [employer] voice recognition software, prone to medical misidentifications [...] arthritis: + Rheumatoid factor (152). Follows with substance abuse prevention coordinator Dr. Olaf Kaplan out of [place]. Follow-up labs including CAMILO, ESR/CRP, and comprehensive [...] Follows with psychiatric provider Clarice Lara with [facility]. Taking clonazepam 0.5 mg once daily [...] dysfunction. #Hyperkalemia: Patient reports she was at [facility] ED recently at which time her [...] reviewed. Dictation completed with the use of [employer] voice recognition software, prone to medical misidentifications [...] for 11/20/2024. #Recent fall: Patient seen at [facility] ED 11/02/2024 s/p fall at work. [...] diffuse joint pain and fatigue. Follows with substance abuse prevention coordinator Dr. Clark out of [place], records requested and not yet available for my review. 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 States this was diagnosed by Dr. uDbon out of [place], [place]. Taking methocarbamol 750 mg 3 times [...] reviewed. Dictation completed with the use of [employer] voice recognition software, prone to medical misidentifications [...] for 11/20/2024. #Recent fall: Patient seen at [facility] ED 11/02/2024 s/p fall at work. [...] diffuse joint pain and fatigue. Follows with substance abuse prevention coordinator Dr. Clark out of [place], records requested and not yet available for my review. 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 States this was diagnosed by Dr. Dubon out of [place], [place]. Taking methocarbamol 750 mg 3 times [...] reviewed. Dictation completed with the use of [employer] voice recognition software, prone to medical misidentifications [...] ER follow-up hospital follow-up. María presented to [facility] ED 04/19/2025 with chief complaint [...] any pain medication. Previously followed with paint formulator Dr. Trivedi who provided steroid injections. Historically [...] added opioid use. WIll refer to paint formulator with goal of establishing safe pain management regimen. #RA: Follows with Olaf Kaplan MD out of [place]. Discussed possibility of chronic pain being related [...] reviewed. Dictation completed with the use of [employer] voice recognition software, prone to medical misidentifications [...] for 11/20/2024. #Recent fall: Patient seen at [facility] ED 11/02/2024 s/p fall at work. [...] diffuse joint pain and fatigue. Follows with substance abuse prevention coordinator Dr. Clark out of [place], records requested and not yet available for my review. 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 States this was diagnosed by Dr. Dubon out of [place], [place]. Taking methocarbamol 750 mg 3 times [...] reviewed. Dictation completed with the use of [employer] voice recognition software, prone to medical misidentifications [...] Date Hemoglobin A1c 10/28/2024 Anti-dsDNA Antibodies 12/13/2024 Anti-Laiksha-1 12/13/2024 CAMILO w/Reflex 10/28/2024 ESR 10/28/2024 ESR [...] Tissue Head Neck 02/03/2025 Comp. Metabolic Panel [id number] Anti-Mi-2 Ab ([id number] 12/13/2024 Anti-Ro (SS-A) Ab (RDL)-[id number] 5 Anti-La (SS-B) Ab ([id number])-[id number] 5 CREATINE KINASE AND CKMB 12/13/2024 Insurance Providers Payer Name Payer Address Payer Phone Subscriber Number Group Number Insured Name Patient Relationship to Insured Coverage Start Date Coverage End Date [facility] [address] [address] [place] [id number] María Phillips Self - patient is [...]
--- OUTSIDE RECORDS SUMMARY | 2025-09-27 16:51 | XMS_ITS | Clinical Summary ---
Author Organization [facility] Address [address] [place] [address] Care Team Providers Care District Loss Prevention Manager Name Role Phone Vee Allan MD [...] age to complete this topic Care Teams District Loss Prevention Manager Relationship Specialty Start Date End Date Vee Allan MD PCP - General Internal Medicine 12/05/19
--- OUTSIDE RECORDS SUMMARY | 2025-09-27 16:51 | XMS_ITS | Continuity of Care Document ---
Author Organization [facility] [address] [place] [address] Phone [phone] Care Team Providers Care Talent Sourcing Specialist Name Role Phone Vee Queen M.D Care Team Informa tijolanta Cupola Hoist Operator [phone] Problems Active Problems Provider Date Anxiety Eric [...] Medications SIG Qnty Indications Ordering Provider Date [id number] Tablets 1 tabs by mouth at 11pm 1tabs Eric Shah M.D. 12/01/2022 [id number] Capsules Take 1 Capsule By Mouth 2 Times A Day Terence Olvera MD Llisxcxczhrfrqaxfb3i g TBPK follow package directions Unknown Vital Signs Date Vital Result Comment 12/01/2022 11:00am BP Systolic 130 mmHg BP Diastolic 70 mmHg Heart Rate 72 /min Height 64 inches 5'4 Weight 185.00 lb BMI (Body Mass Index) 31.8 kg/m2 Results Test Acquired Date Facility Test Result H/L Range N ote Cortisol 01/20/2023 [facility] Ref[facility] Cortisol 0.6 g/dL 1 Cortisol 01/06/2023 [facility] Ref[facility] Cortisol <pending> Cortisol 01/05/2023 [facility] Referen ce Lab Cortisol 5.3 g/dL 2 Free T4 01/05/2023 [facility] Re[facility] Free T4 0.98 ng/dL (0.70-1.80) [facility] 0.52 uIU/mL (0.4-4.2) Free T4 01/04/2023 [facility] Referen ce Lab Free T4 <pending> TSH 01/04/2023 [facility] ce Lab TSH <pending> 1 [...]
== END 2025-09-27 16:45 | disposition home or self-care (01) ==
LOC: HO.MRI 16:44
PROVIDERS: Visit Provider Internal Medicine Rheumatology
DX: M17.0 Bilateral primary osteoarthritis of knee (principal); M05.79 Rheumatoid arthritis with rheumatoid factor of multiple sites without organ or systems involvement
CPT/HCPCS: 73723; A9585

== ENCOUNTER → 2025-09-27 16:55 | Outpatient (BNV) | payer OTHER, SELFPAY | PROVIDERS: Visit Provider Radiology Diagnostic Ultrasound | DX: M06.062 Rheumatoid arthritis without rheumatoid factor, left knee (principal); M25.562 Pain in left knee; M65.162 Other infective (teno)synovitis, left knee; M23.42 Loose body in knee, left knee | CPT/HCPCS: 73723 ==

== ENCOUNTER → 2025-10-01 11:12 | Outpatient (BNV) | payer OTHER, SELFPAY | PROVIDERS: Visit Provider Radiology Diagnostic Radiology | DX: M05.79 Rheumatoid arthritis with rheumatoid factor of multiple sites without organ or systems involvement (principal); M93.2 Osteochondritis dissecans | CPT/HCPCS: 73223 ==

== ENCOUNTER 2025-10-01 11:13 | Outpatient (REF) | payer OTHER, SELFPAY ==
--- OUTSIDE RECORDS SUMMARY | 2024-08-06 07:23 | XMS_ITS | Encounter Summary ---
Author Organization [facility] Address [address] [place] [address] Care Team Providers Care Sternman Name Role Phone Unavailable Primary Care Provider Unavailabl e Encounter Details Date Type Department Care Team (Late st Contact Info) Description 08/06/2024 8:23 AM EDT Hospital Encounter TH HISTORIC ENCOUNTERS EASTERN CONVERSION ONLY Tutu Trivedi MD [address] [place] [address] Social History Tobacco Use Types Packs/Day Years [...] 4:01 PM EDT Karin Vera RN * [place] Suicide Severity Rating Scale (Screener/Recent Self-Report) Question [...] eventual strength) 09/11 Ongoing 2. Dominant R client technical support associate strength at least 35# (vs 20initial, vs [...]
--- NOTE | ~2025-10-01 | MR_ITS ---
EXAMINATION: MRI HAND WITHOUT AND WITH CONTRAST, RIGHT CLINICAL INFORMATION: Rheumatoid arthritis with rheumatoid factor. Patient reports pain, history of the lunate kind box syndrome decompression surgery 2 months ago COMPARISON: X-ray 04/11/2022 TECHNIQUE: MRI of the wrist without contrast is performed in a 1.5 Kylie high-field scanner. 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 Correlate with surgical history. T2 bright signal in the trapezoid, capitate, with enhancement.. No significant joint space narrowing or erosive changes is identified in the MCP, interphalangeal joints. No evidence of acute fracture. There appears to be synovial thickening and enhancement in the wrist joint. No significant effusion is seen. MUSCLE/TENDONS: Tendons intact. No appreciable tenosynovitis. LIGAMENTS: Limited evaluation of intrinsic ligaments of the wrist. No gross tear is identified of the scapholunate or lunotriquetral ligament. Limited evaluation of the TFCC. MEDIAN NERVE: Within normal limits Guyon's Canal: Unremarkable. MR/MR hand RT wo/w con IMPRESSION: 1. Abnormal bright T2/low T1 signal in the lunate. 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 Correlate with surgical history, correlate with x-ray. 2. Bony findings in the carpal bones, as detailed above. There is synovial prominence in the wrist joint. No significant wrist joint effusion is seen. These findings are nonspecific, could reflect sequela of degenerative changes, inflammatory arthropathy. 3. No significant arthropathy or erosive changes identified in the MCP, interphalangeal joints of the fingers. Electronically signed by: Will Pappas MD 10/03/2025 10:55 AM EST
--- NOTE | ~2025-10-01 | MR_ITS ---
EXAMINATION: MR WRIST WITHOUT AND WITH CONTRAST, RIGHT Contrast: 7.5 mL Gadavist TECHNIQUE: Multiplanar - multisequence imaging through an upper extremity joint was performed without and with IV contrast. INDICATION: M05.79 - Rheumatoid arthritis with rheumatoid factor, Kienbock syndrome, postop the 2 months ago PRIOR: None FINDINGS: Triangular fibrocartilage complex: Intact Intrinsic wrist ligaments: Scapholunate ligament is torn and there is 3.2 mm lunate joint diastases. Lunotriquetral ligament: Foot signal traverses the volar band and extends into the membranous component. The dorsal band is trace increased signal. Extensor compartments: There is trace fluid signal encircling tendons of the fourth extensor compartment at the level the common carpal metacarpal compartment. Flexor tendons: Intact and unremarkable. Carpal tunnel and Guyon's canal: There is enlargement of the median nerve within the carpal tunnel. Signal intensity is within normal limits. Guyon's canal structures are unremarkable. Bones/Marrow: There is a geographic lesion in the distal radius that measures 12 x 15 x 10 mm (CC by transverse by AP). It demonstrates geographic margins. On T1 imaging, it is isointense skeletal muscle with thin arcs of high signal. On fluid sensitive sequences, it demonstrates high signal with rings and arcs of low signal. After contrast, there is patchy intermediate enhancement most consistent with chondroid matrix. The lesion abuts the dorsal cortex. There is no cortical destruction or soft tissue extension. There is no adjacent bone marrow edema. Lunate demonstrates low signal on all imaging sequences without enhancement. It is wedge-shaped with severe flattening on the radial side and mild flattening on the ulnar side. There is edema and enhancement along the volar aspect of the lunate, and minimally along the dorsal margin. There is also thinning of the cortex, especially along the proximal margin. There is mild patchy edema and enhancement involving trapezoid in the distal ulnar side of capitate. There is a small degenerative cyst in the volar base of the capitate.. The first carpal metacarpal joint demonstrates marginal osteophytes, mild subluxation, and multifocal articular cartilage defects. Soft tissues: There is no muscle edema or fatty replacement. There is synovial thickening with hyperenhancement and increased joint fluid involving the radiocarpal compartment and middle carpal compartment. MR/MR wrist RT wo/w con IMPRESSION: Changes consistent with inflammatory arthropathy such as rheumatoid arthritis. There is synovial thickening, hyperenhancement, and joint effusion in the radiocarpal and middle carpal compartment. Mild edema or early erosions are present in trapezoid and the ulnar side of the distal end of the capitate. There is also erosive change involving the volar aspect of the lunate and minimally on the dorsal side. Lunatomalacia: There is moderate loss of height resulting in a wedge-shaped appearance and diffuse sclerosis except on the dorsal and volar margins where there is evidence of edema and enhancement likely related to erosive change probably secondary to inflammatory arthropathy. Alternatively, edema like changes could be related to ongoing AVN. 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 There is thickening of the median nerve in the carpal tunnel which can be seen with carpal tunnel syndrome. However, there is no associated muscle edema or atrophy in the thenar region to suggest a significant compression neuropathy. Scapholunate ligament tear with joint diastases. Lunotriquetral ligament tear involving the volar and membranous component. The dorsal band is not well seen but may be intact. Electronically signed by: Surinder Mcclure MD 10/01/2025 01:01 PM [facility]
--- OUTSIDE RECORDS SUMMARY | 2025-10-01 13:59 | XMS_ITS | Encounter Summary ---
Author Organization [facility] Address [address] [place] [address] Care Team Providers Care Homeworker Name Role Phone Araceli Augustin Primary Care Provider + Encounter Details Date Type Department Care Team ([facility] st Contact Info) Description 08/06/2025 Results Follow-Up Gastroenterology - [place] [address] [facility] [address] [facility] [address] [place] [address] Gia Lance, NICOLE [address] [facility] [address] [place] [address] Social History Tobacco Use Types Packs/Day Years [...] on filedocumented in this encounter Care Teams Homeworker Relationship Specialty Start Date End Date Araceli Augustin PA [address] [place] [phone] PCP - General 11/20/24 documented as of this encounter
--- OUTSIDE RECORDS SUMMARY | 2025-10-01 13:59 | XMS_ITS | Clinical Summary ---
Author Organization [facility] Address [address] [place] [phone] Phone Care Team Providers Care Film Laboratory Technician Name Role Phone Vee Allan MD [...] Medical Devices Not on file Care Teams Film Laboratory Technician Relationship Specialty Start Date End Date Vee Allan MD [address] [place] [phone] PCP - General Internal Medicine 09/01/20 Additional Source Comments The information contained in this document represents components of the legal health record. It is not the complete legal health record.[facility]
--- OUTSIDE RECORDS SUMMARY | 2025-10-01 14:00 | XMS_ITS | Clinical Summary ---
Author Organization [facility] Address [address] [place] [address] Phone Care Team Providers Care Corncob Pipes Assembler Name Role Phone Araceli Augustin Primary Care [...] back and legs. The lumbar CT from [facility] show degenerative disc disease but not stenosis. Her description of paresthesias and leg shaking raise concerns for stenosis. Her workup at the [facility] ER did not correlate with cauda equina syndrome. She is now awaiting a lumbar spine MRI at [place]. I be happy to review that once [...] this, is currently seeing 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 [facility], had injection in the [...] anxiety disorders 02/09/2021 Rheumatoid arthritis ([facility] V24, [facility] V28) 12/25/2020 Carpal tunnel syndrome 01/23/2020 [...] Department Care Team Description 09/24/2025 Telephone Gastroenterology [facility] 175 [facility] 175 [facility] [address] [place] [phone] Melba Bunn MD 09/15/2025 3:45 PM EST Office Visit Orthopedic Surgery [facility] 175 [facility] [address] [place] [phone] Bessy Mesa MD 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 (CMS/HCC V24, CMS/HCC V28) (Primary Dx) 09/15/2025 Telephone Orthopedic Surgery [facility] 250 175 [facility] [address] [place] [phone] Bessy Mesa MD 09/11/2025 12:30 PM EST Treatment [facility] [address] [phone] Nichelle Milian, OT 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) 09/11/2025 Telephone Orthopedic Surgery [facility] 250 175 [facility] [address] [place] [phone] Bessy Mesa MD 09/04/2025 12:30 PM EDT Treatment [facility] [address] [phone] Shanell Bowen COTA/Ulices 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) 08/28/2025 1:30 PM EDT Treatment [facility] [address] [phone] Nichelle Milian, OT 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) 08/21/2025 12:00 PM EDT Evaluation [facility] [address] [phone] Nichelle Milian, OT 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) 08/14/2025 3:30 PM EDT Office Visit Orthopedic Surgery [facility] [address] [facility] [address] [place] [address] Von Mcclure MD Knee pain (Primary Dx); Post-traumatic osteoarthritis of left knee; Primary osteoarthritis of right knee 08/13/2025 Telephone Gastroenterology - [place] 175 [facility] [address] [facility] [address] [place] [phone] Gia Lance NP 08/12/2025 3:45 PM EDT Office Visit Orthopedic Surgery [facility] [address] [facility] [address] [place] [address] Bessy Mesa MD Wrist pain (Primary Dx); Osteochondrosis of lunate of right wrist; Surgery follow-up 08/06/2025 Results Follow-Up Gastroenterology [facility] 175 [facility] [address] [facility] [address] [facility] [address] [place] [address] Gia Lance NP 08/05/2025 Telephone Orthopedic Surgery [facility] [address] [facility] [address] [phone] Von Mcclure MD 08/04/2025 Telephone Orthopedic Surgery [facility] [address] [facility] [address] [phone] Bessy Mesa MD 07/29/2025 3:45 PM EDT Office Visit Orthopedic Surgery [facility] [address] [facility] [address] [facility] [address] [place] [address] Bessy Mesa MD Osteochondrosis of lunate of right wrist (Primary Dx); Surgery follow-up 07/29/2025 Telephone Orthopedic Surgery [facility] [address] [facility] [address] [phone] Von Mcclure MD 07/28/2025 2:40 PM EDT Office Visit Gastroenterology [facility] 175 [facility] [address] [facility] [address] [place] [address] Gia Lance NP Erosive gastropathy (Primary Dx); Abdominal pain, chronic, right upper quadrant; History of Helicobacter pylori infection; Esophageal dysmotility; Tobacco use disorder 07/24/2025 8:40 AM EDT Consult Endocrinology - [address] [phone] Marian Turner MD Hypothyroidism (acquired) (Primary Dx); Hyperthyroidism 07/24/2025 Telephone Orthopedic Surgery [facility] 175 [facility] [address] [place] [phone] Bessy Mesa MD 07/23/2025 3:30 PM EDT Office Visit Orthopedic Surgery [facility] 175 [facility] [address] [place] [phone] Nichelle Archibald PA Surgery follow-up (Primary Dx) 07/23/2025 Telephone Orthopedic Surgery [facility] 250 175 [facility] [address] [place] [phone] Jacquelyn Sow 07/16/2025 1:10 PM EDT Anesthesia Event [facility] [place] [address] [place] [phone] Magda Siegel MD Chang, Ling, CRNA 07/16/2025 12:30 PM EDT - 07/16/2025 2:[address] [facility] Main OR [address] [place] [phone] Bessy Mesa MD core decompression right distal radius [94073 (CPT )] 07/16/2025 10:33 AM EDT - 07/16/2025 4:05 PM EDT Hospital Encounter 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 Xray [address] [place] [address] Pain Discharge Disposition: Home or Self Care 07/16/2025 Telephone Gastroenterology - [place] 175 [facility] 175 [facility] [address] [place] [address] Gia Lance NP 07/15/2025 Telephone Orthopedic Surgery - [place] 250 175 [facility] [address] [place] [phone] Bessy Mesa MD 07/08/2025 6:02 PM EDT - 07/08/2025 10:[address] [facility] Emergency [address] [place] [phone] Jalil Steven MD Goebel, Mathew, MD Spinal stenosis of lumbar region, unspecified whether neurogenic claudication present (Primary Dx) Discharge Disposition: Home or Self Care 07/08/2025 3:15 PM EDT Consult Orthopedic Surgery - [place] 175 [facility] [address] [place] [address] Bessy Mesa MD Osteochondrosis of lunate of left wrist (Primary Dx) from Last 3 Months Immunizations Immunization Administration Dates Next Due Hepatitis B (Gzwyxqy-Q-Cyhsu , Recombivax HB-Adult) 19yo and older 02/21/2022,01/17/2022 [...] tissue CARPAL TUNNEL RELEASE 01/20/2020 Right PROCEDURE: DC NEUROPLASTY &/TRANSPOS MEDIAN NRV CARPAL TUNNE COLONOSCOPY OTHER SURGICAL HISTORY 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 [facility] WRIST SURGERY 11/06/2021 - 11/05/2022 Left [...] eventual strength) 09/11 Ongoing 2. Dominant R visual manager strength at least 35# (vs 20initial, [...] LMA(NO CHARGE) Routine 07/16/2025 1:23 PM EDT DC OSTEOTOMY RADIUS DISTAL THIRD 07/16/2025 1:09 PM [...] 2:36 PM EST Atrophic arthritis ([facility] V24, [facility] V28) Routine general medical examination at [...] detected Not detected 08/05/2025 2:52 PM EDT [facility] Comment: This test was performed at [...] Food and Drug Administration. Test performed at [facility], [address] , [place] [address] Krystina Austin MD, PhD - Building Principal Stool Rectum structure / Unknown Non-blood Collection / Unknown 07/30/2025 9:58 AM EDT 07/30/2025 9:58 AM EDT Gia Lance NP LAB BODY FLUIDS AND STOOLS ROD ESCALANTE Final Result [facility] [address] [place] [address] * Thyroid stimulating hormone with reflex to free t4 and free t3 (07/24/2025 9:32 AM EDT) [facility] Signature TSH 1.20 0.40 - 4.00 mcIU/mL LAB CHEMISTRY METHOD 07/24/2025 12:39 PM EDT [facility] Blood Venous blood specimen / Unknown Venipuncture / Unknown 07/24/2025 9:32 AM EDT 07/24/2025 9:32 AM EDT Marian Turner MD LAB BLOOD ORDERABLES Final Res ult [facility] [address] [place] [address], * Thyroid stimulating immunoglobulin (07/24/2025 9:32 AM EDT) Thyroid Stimulating Immunoglobulin <0.10 <0.10 IU/L 07/28/2025 7:54 PM EDT [facility] Comment: Thyroid stimulating immunoglobulins (TSI) concentrations greater than or equal to (>=) 0.55 IU/L have a clinical sensitivity of at least 98.6%, and a clinical specificity of at least 98.5%, for the differential diagnosis of Graves' Disease. TSI concentrations for patients with other thyroid or autoimmune diseases range from 0.11 to 0.39 IU/L. Test performed at [facility], [address] [place] [address] Krystina Austin MD, PhD - Building Principal Blood Venous blood specimen / Unknown Venipuncture / Unknown 07/24/2025 9:32 AM EDT 07/24/2025 9:32 AM EDT Marian Turner MD LAB BLOOD ORDERABLES Final Res ult [facility] [address] [place] [address] * Triiodothyronine free (07/24/2025 9:32 AM EDT) T3, Free 316 230 - 420 pcg/dL LAB CHEMISTRY METHOD 07/24/2025 12:38 PM EDT [facility] Blood Venous blood specimen / Unknown Venipuncture / Unknown 07/24/2025 9:32 AM EDT 07/24/2025 9:32 AM EDT Marian Turner MD LAB BLOOD ORDERABLES Final Res ult Performing Organization Address City/[facility]/ZIP Co de Phone Number [facility] [address] [place] [address], * Thyroxine free (07/24/2025 9:32 AM EDT) Free T4 1.16 0.70 - 1.80 ng/dL LAB CHEMISTRY METHOD 07/24/2025 12:38 PM EDT [facility] Blood Venous blood specimen / Unknown Venipuncture / Unknown 07/24/2025 9:32 AM EDT 07/24/2025 9:32 AM EDT [facility] ENRI[facility] LAB BLOOD ORDERABLES Final Res ult Performing Organization Address [facility]/ZIP Co de Phone Number [facility] [address] [place] [address], * Tissue exam (07/16/2025 1:50 PM EDT) Final Diagnosis Bone, Right, Distal Radius-decomp ression: -FRAGMENTS OF TRABECULAR BONE WITH NO SPECIFIC PATHOLOGIC CHANGE 07/18/2025 12:03 PM EDT [facility] Comment Intact specimen with articular cartilage is preferred specimen for evaluating avascular necrosis. 07/18/2025 12:03 PM EDT [facility] Gross Description A. Wrist, Right, Distal Radius: Labeled right dis wrist R . Received in formalin is a 1.4 x 0.8 x 0.2 cm aggregate of hard, rocha-red bone fragments which are wrapped in paper and submitted in toto in one cassette, multiple pieces, following decalcificati on. TS 07/18/2025 12:03 PM EDT [facility] Disclaimer Unless otherwise specified, all tissue is 10% NB formalin fixed and paraffin embedded. 07/18/2025 12:03 PM EDT [facility] Bone Structure of right wrist region / Unknown 07/16/2025 1:50 PM EDT 07/16/2025 3:19 PM EDT Bessy Mesa MD LAB PATHOLOGY ORDERABLES Nataliia vasquez Result [facility] [address] [place] [address], * (ABNORMAL) Culture anaerobic with gram stain (07/16/2025 1:40 PM EDT) Culture, Anaerobic No Growth of Anaerobes. 07[facility]24[facility]2025 [facility], Anaerobic Staphylococcus warneri(A) ABBEY 07/24/2025 8:51 AM EDT [facility] Comment: SPARSE Beta-lactamase negative The organism value for this result has been updated. These results have been appended to the previously preliminary verified report. Edited result: Previously reported as Gram Positive Cocci on 07/20/2025 at 0832 EDT. Culture, Anaerobic Streptococcus viridans group(A) ABBEY 07/24/2025 8:51 AM EDT [facility] Comment: SPARSE Susceptibility testing not [...] species,not anthracis(A) ABBEY 07/24/2025 8:51 AM EDT [facility] Comment: SPARSE The organism value for this result has been updated. These results have been appended to the previously preliminary verified report. Gram Stain Result Refer to Aerobic culture for gram stain results. 07/24/2025 8:51 AM [facility] Swab Structure of right wrist [...] OR DERABLES Final Result Performing Organization Address [facility] de Phone Number [facility] [address] [place] [address], [place] [phone] * Culture wound deep (07/16/2025 1:40 PM EDT) Culture, Wound No growth at 3 days 07/19/2025 10:14 AM EDT [facility] Gram Stain Result No polymorphonuclear leukocytes, No epithelial cells, and No organisms noted 07/19/2025 10:14 AM EDT [facility] Swab Structure of right wrist region / Unknown 07/16/2025 1:40 PM EDT 07/16/2025 2:37 PM EDT us Bessy Mesa MD LAB MICROBIOLOGY - GENERAL OR DERABLES Final Result Performing Organization Address [facility] Co de Phone Number [facility] [address] [place] [address], [place] [phone] * TH AN LMA(NO CHARGE) (07/16/2025 1:23 [...] spinal canal stenosis T12-L1 through L4-L5, and gzwe-mm-qhpjmsso bilateral L4-L5 neural foraminal stenosis. 2. Unremarkable [...] spinal canal stenosis from T12-L1 through L4-L5. Dgav-ej-idrbzlng bilateral L4-L5 neural foraminal stenosis. Unremarkable appearance [...] spinal canal stenosis from T12-L1 through L4-L5. Cscx-uz-eqmghxba bilateral L4-L5 neural foraminal stenosis. Unremarkable appearance of the conus medullaris and cauda equina. Paraspinous musculature intact. IMPRESSION: 1. Multilevel degenerative changes of the lumbar spine as described contributing to mild multifocal spinal canal stenosis T12-L1 through L4-L5, and xszc-vz-vxscopmf bilateral L4-L5 neural foraminal stenosis. 2. Unremarkable appearance of the conus medullaris and cauda equina. This document has been electronically signed by: James Sheth MD on 07/08/2025 21:13:43 Jalil Steven MD [facility] MRI PROCEDURES Final Result * (ABNORMAL) CBC auto differential (07/08/2025 7:06 PM EDT) WBC 7.5 4.8 - 10.8 K/mcL LAB HEMETOLOGY METHOD 07/08/2025 7:22 PM EDT [facility] RBC 4.20 3.80 - 4.80 M/mcL LAB HEMETOLOGY METHOD 07/08/2025 7:22 PM EDT [facility] Hemoglobin 13.8 11.5 - 16.0 g/dL LAB HEMETOLOGY METHOD 07/08/2025 7:22 PM EDT [facility] Hematocrit 40.7 35.0 - 47.0 % LAB HEMETOLOGY METHOD 07/08/2025 7:22 PM EDT [facility] MCV 97.4 79.0 - 98.0 FL LAB HEMETOLOGY METHOD 07/08/2025 7:[facility] MCH 33.0(H) 27.0 - 32.0 pcg LAB HEMETOLOGY METHOD 07/08/2025 7:22 PM [facility] MCHC 33.9 32.0 - 37.0 g/dL LAB HEMETOLOGY METHOD 07/08/2025 7:22 PM [facility] RDW 12.7 11.0 - 15.0 % LAB HEMETOLOGY METHOD 07/08/2025 7:22 PM [facility] Platelets 311 130 - 400 K/mcL LAB HEMETOLOGY METHOD 07/08/2025 7:22 PM [facility] MPV 9.3 7.0 - 11.0 FL LAB HEMETOLOGY METHOD 07/08/2025 7:22 PM [facility] NRBC 0.0 <1.0 % LAB HEMETOLOGY METHOD 07/08/2025 7:22 PM [facility] NRBC Absolute 0.00 <0.10 K/mcL LAB HEMETOLOGY METHOD 07/08/2025 7:22 PM [facility] Neutrophils Relative 49.3 % LAB HEMETOLOGY METHOD 07/08/2025 7:22 PM [facility] Lymphocytes Relative 39.4 % LAB HEMETOLOGY METHOD 07/08/2025 7:22 PM [facility] Monocytes Relative 7.6 % LAB HEMETOLOGY METHOD 07/08/2025 7:22 PM [facility] Eosinophils Relative 2.9 % LAB HEMETOLOGY METHOD 07/08/2025 7:22 PM [facility] Basophils Relative 0.5 % LAB HEMETOLOGY METHOD 07/08/2025 7:22 PM EDT [facility] Immature Granulocytes Relative 0.3 % LAB HEMETOLOGY METHOD 07/08/2025 7:22 PM EDT [facility] Neutrophils Absolute 3.68 1.50 - 7.00 K/mcL LAB HEMETOLOGY METHOD 07/08/2025 7:22 PM EDT [facility] Lymphocytes Absolute 2.94 1.00 - 5.00 K/mcL LAB HEMETOLOGY METHOD 07/08/2025 7:22 PM EDT [facility] Monocytes Absolute 0.57 0.20 - 1.00 K/mcL LAB HEMETOLOGY METHOD 07/08/2025 7:22 PM EDT [facility] Eosinophils Absolute 0.22 0.00 - 0.50 K/mcL LAB HEMETOLOGY METHOD 07/08/2025 7:22 PM EDT [facility] Basophils Absolute 0.04 0.00 - 0.20 K/mcL LAB HEMETOLOGY METHOD 07/08/2025 7:22 PM EDT [facility] Immature Granulocytes Absolute 0.02 0.00 - 0.03 K/mcL LAB HEMETOLOGY METHOD 07/08/2025 7:22 PM EDT [facility] Blood Venous blood specimen / Unknown Venipuncture / Unknown 07/08/2025 7:06 PM EDT 07/08/2025 7:15 PM EDT us Juan F Doshi MD LAB BLOOD ORDERABLES Final Result [facility] [address] [place] [address], * Lipase (07/08/2025 7:06 PM EDT) Lipase 19 13 - 75 unit/L LAB CHEMISTRY METHOD 07/08/2025 7:54 PM EDT [facility] Blood Venous blood specimen / Unknown Venipuncture / Unknown 07/08/2025 7:06 PM EDT 07/08/2025 7:15 PM EDT Juan F Doshi MD LAB BLOOD ORDERABLES Final Result [facility] [address] [place] [address], * Comprehensive metabolic panel (07/08/2025 7:06 PM EDT) Sodium 140 133 - 145 mmol/L LAB CHEMISTRY METHOD 07/08/2025 7:54 PM [facility] Potassium 4.1 3.5 - 5.5 mmol/L LAB CHEMISTRY METHOD 07/08/2025 7:54 PM [facility] Chloride 104 96 - 110 mmol/L LAB CHEMISTRY METHOD 07/08/2025 7:54 PM [facility] CO2 29 21 - 32 mmol/L LAB CHEMISTRY METHOD 07/08/2025 7:54 PM [facility] Anion Gap 7 3 - 11 LAB CHEMISTRY METHOD 07/08/2025 7:54 PM [facility] Glucose 81 70 - 100 mg/dL LAB CHEMISTRY METHOD 07/08/2025 7:54 PM [facility] BUN 8 5 - 25 mg/dL LAB CHEMISTRY METHOD 07/08/2025 7:54 PM [facility] Creatinine 0.81 0.50 - 1.10 mg/dL LAB CHEMISTRY METHOD 07/08/2025 7:54 PM [facility] eGFR 84 >=60 mL/min/1. 73m2 LAB CHEMISTRY METHOD 07/08/2025 7:54 PM [facility] Comment:Calculation based on the Chronic Kidney Disease Epidemiology Collaboration (CKD-EPI) equation refit without adjustment for race. BUN/Creatinine Ratio 9.9 LAB CHEMISTRY METHOD 07/08/2025 7:54 PM EDT [facility] Calcium 9.8 8.5 - 10.5 mg/dL LAB CHEMISTRY METHOD 07/08/2025 7:54 PM EDT [facility] AST (SGOT) 23 10 - 42 unit/L LAB CHEMISTRY METHOD 07/08/2025 7:54 PM EDT [facility] ALT (SGPT) 29 10 - 60 unit/L LAB CHEMISTRY METHOD 07/08/2025 7:54 PM EDT [facility] Alkaline Phosphatase 102 42 - 121 unit/L LAB CHEMISTRY METHOD 07/08/2025 7:54 PM EDT [facility] Total Protein 6.8 6.0 - 8.0 g/dL LAB CHEMISTRY METHOD 07/08/2025 7:54 PM [facility] Albumin 4.0 3.2 - 5.0 g/dL LAB CHEMISTRY METHOD 07/08/2025 7:54 PM T [facility] Total Bilirubin 0.5 0.0 - 1.4 mg/dL LAB CHEMISTRY METHOD 07/08/2025 7:54 PM EDT [facility] Blood Venous blood specimen / Unknown Venipuncture / Unknown 07/08/2025 7:06 PM EDT 07/08/2025 7:15 PM EDT us Juan F Doshi MD LAB BLOOD ORDERABLES Final Result [facility] [address] [place] [address], * COLONOSCOPY Anesthesia - [facility]; [facility] ENDOSCOPY (06/05/2025 12:23 PM EDT) [...] scheduled. Narrative 06/05/2025 12:[address] [facility] Patient Name: María Phillips Procedure Date: [...] verified by the physician, the nurse, the statistical developer and the facility maintenance technician in the pre-procedure area in the [...] not prolapse). Procedure Code(s): --- Professional --- 21766, Colonoscopy, flexible; with biopsy, single or multiple Diagnosis Code(s): --- Professional --- R19.7, Diarrhea, unspecified CPT copyright 2020 [employer]. All rights reserved. The codes documented in this report are preliminary and upon osteopathic physician review may be revised to meet current compliance requirements. Melba Bunn MD 06/05/2025 12:27:19 PM This report has been signed electronically.Melba Bunn MD Number of Addenda: 0 Note Initiated On: 06/05/2025 11:57 AM Scope Withdrawal Time: 0 hours 6 minutes 22 seconds Scope In: 12:10:33 PM Scope Out: 12:23:27 PM Endoscopy Department at [facility] - [address] [place] [phone] Procedure Note Melba Bunn MD - 06/05/2025 [facility] Patient Name: María Phillips Procedure Date: [...] the physician, the nurse, theanesthetist and the facility maintenance technician in the pre-procedure area in the [...] not prolapse). Procedure Code(s): --- Professional --- 09775, Colonoscopy, flexible; with biopsy, singleor multiple Diagnosis Code(s): --- Professional --- R19.7, Diarrhea, unspecified CPT copyright 2020 [employer]. All rights reserved. The codes documented in this report are preliminary and upon osteopathic physician reviewmay be revised to meet current compliance requirements. Melba Bunn MD 06/05/2025 12:27:19 PM This report has been signed electronically.Melba Bunn MD Number of Addenda: 0 Note Initiated On: 06/05/2025 11:57 AM Scope Withdrawal Time: 0 hours 6 minutes 22 seconds Scope In: 12:10:33 PM Scope Out: 12:23:27 PM Endoscopy Department at [facility] - [address] [place] [phone] IMPRESSION: - The examined portion of the [...] Mammography at [facility], [address] [place] [address], [id number], . -------- FINAL REPORT -------- Dictated By: Stefani Zamora Dictated Date: 02/06/2025 09:43 ET Assigned Physician: Stefani Zamora Reviewed and Electronically Signed By: Stefani Zamora Signed Date: 02/06/2025 09:45 ET Workstation ID: [id number] Transcribed By: Self Edit Transcribed Date: 02/06/2025 [...] Mammography at [facility], [address] [place] [address], [facility], . -------- FINAL REPORT -------- Dictated By: Stefani Zamora Dictated Date: 02/06/2025 09:43 ET Assigned Physician: Stefani Zamora Reviewed and Electronically Signed By: Stefani Zamora Signed Date: 02/06/2025 09:45 ET Workstation ID: [id number] Transcribed By: Self Edit Transcribed Date: 02/06/2025 09:43 ET Araceli BOOTHE IMG BI PROCEDURES Final Result * Lipid panel with reflex to direct LDL (10/28/2024 2:36 PM EST) Cholesterol 196 0 - 200 mg/dL LAB CHEMISTRY METHOD 10/28/2024 4:17 PM EST [facility] Triglycerides 51 0 - 150 mg/dL LAB CHEMISTRY METHOD 10/28/2024 4:17 PM [facility] HDL 111 >=40 mg/dL LAB CHEMISTRY METHOD 10/28/2024 4:17 PM [facility] LDL Calculated 75 0 - 100 mg/dL LAB CHEMISTRY METHOD 10/28/2024 4:17 PM [facility] VLDL Cholesterol Corby 10.2 mg/dL LAB CHEMISTRY METHOD 10/28/2024 4:17 PM [facility] Non HDL Chol. (LDL+VLDL) 85 <145 mg/dL LAB CHEMISTRY METHOD 10/28/2024 4:17 PM [facility] Chol/HDL Ratio 1.8 0.0 - 4.4 LAB CHEMISTRY METHOD 10/28/2024 4:17 PM [facility] Blood Venous blood specimen / Unknown Venipuncture / Unknown 10/28/2024 2:36 PM EST 10/28/2024 3:06 PM EST Araceli BOOTHE LAB BLOOD ORDERABLES Fin al Result [facility] [address] [place] [address], * HIV Screening (05/20/2024) [facility] HIV Screening abstracted [facility] Provider HEALTH MAINTENANCE Final Result * Hepatitis C Screening (05/20/2024) [facility] Hepatitis C Screening abstracted [facility] Provider HEALTH MAINTENANCE Final Result * Cervical Cancer Screening: HPV (07/20/2023) [facility] Cervical Cancer Screening: HPV no interpreta tion,abstr acted [facility] Rickey ENRIQUE HEALTH MAINTENANCE Final Result from Last 3 Months or Most Recently Relevant to Health Maintenance Insurance [facility] CAMILA QUINONEZ [id number] Advance Directives * Full Code - Default [...] currently active code status orders. Care Teams Corncob Pipes Assembler Relationship Specialty Start Date End Date Araceli Augustin PA [address] [place] [phone] PCP - General 11/20/24
--- OUTSIDE RECORDS SUMMARY | 2025-10-01 14:00 | XMS_ITS | Encounter Summary ---
Author Organization [facility] Address [address] [place] [address] [place] [phone] Phone Care Team Providers Care Veterinary Livestock Inspector Name Role Phone Vee Allan MD Primary Care Pr ovider Encounter Details Date Type Department Care Team (Late st Contact Info) Description 10/08/2020 Ancillary Orders [facility] - Orthopaedics Outpatient Practice [address], [address] Floor, [address] [place] [address] Finn Bone MD [address] [place] [phone] [email or web address] Hand joint pain Social History [...] hand documented in this encounter Care Teams Veterinary Livestock Inspector Relationship Specialty Start Date End Date Vee Allan MD [address] [place] [phone] PCP - General Internal Medicine 09/01/20 documented as of this encounter Additional Source Comments The information contained in this document represents components of the legal health record. It is not the complete legal health record.[facility]
--- OUTSIDE RECORDS SUMMARY | 2025-10-01 14:00 | XMS_ITS | Encounter Summary ---
Author Organization [facility] Address [address] [place] [address] Care Team Providers Care Director Of Architecture Name Role Phone Araceli Augustin Primary Care Provider + Reason for Visit * Reason Onset Date Comments consult 09/24/2025 Encounter Details Date Type Department Care Team ([facility] st Contact Info) Description 09/24/2025 Telephone Gastroenterology - [place] [address] [facility] [address] [facility] [address] [place] [address] Melba Bunn MD [address] [facility] [address] [place] [address] Social History Tobacco Use Types Packs/Day Years [...] 09/24/2025 11:14 AM EST Referral received from [facility] for epigastric abdominal pain. Reached out [...] eventual strength) 09/11 Ongoing 2. Dominant R sack cleaner strength at least 35# (vs 20initial, [...] on filedocumented in this encounter Care Teams Director Of Architecture Relationship Specialty Start Date End Date Araceli Augustin PA [address] [place] [phone] PCP - General 11/20/24 documented as of this encounter
--- OUTSIDE RECORDS SUMMARY | 2025-10-01 14:00 | XMS_ITS | Encounter Summary ---
Author Organization [facility] Address [address] [place] [address] [place] [phone] Phone Care Team Providers Care Construction Plumber Name Role Phone Vee Allan MD Primary Care Pr ovider Encounter Details Date Type Department Care Team (Late st Contact Info) Description 10/08/2020 Ancillary Orders [facility] - Orthopaedics Outpatient Practice [address] [facility], 1st Floor, [address] [place] [address] Finn Bone MD [address] [place] [phone] [email or web address] Hand joint pain Social History [...] hand documented in this encounter Care Teams Construction Plumber Relationship Specialty Start Date End Date Vee Allan MD [address] [place] [phone] PCP - General Internal Medicine 09/01/20 documented as of this encounter Additional Source Comments The information contained in this document represents components of the legal health record. It is not the complete legal health record.[facility]
--- OUTSIDE RECORDS SUMMARY | 2025-10-01 14:00 | XMS_ITS | Continuity of Care Document ---
Author Organization [facility] [address] [facility] [address] [place] [address] Phone [phone] Care Team Providers Care Clinical Biochemist Name Role Phone Vee Queen M.D Care Team Informa tijolanta Naphthalene Operator [phone] Problems Active Problems Provider Date Anxiety Eric [...] Medications SIG Qnty Indications Ordering Provider Date [id number] Tablets 1 tabs by mouth at 11pm 1tabs Eric Shah M.D. 12/01/2022 [id number] Capsules Take 1 Capsule By Mouth 2 Times A Day Terence Olvera MD [id number] g TBPK follow package directions Unknown Vital Signs Date Vital Result Comment 12/01/2022 11:00am BP Systolic 130 mmHg BP Diastolic 70 mmHg Heart Rate 72 /min Height 64 inches 5'4 Weight 185.00 lb BMI (Body Mass Index) 31.8 kg/m2 Results Test Acquired Date Facility Test Result H/L Range N ote Cortisol 01/20/2023 [facility] Refer ce Lab Cortisol 0.6 g/dL 1 Cortisol 01/06/2023 [facility] Refer ce Lab Cortisol <pending> Cortisol 01/05/2023 [facility] Referen ce Lab Cortisol 5.3 g/dL 2 Free T4 01/05/2023 [facility] Referen ce Lab Free T4 0.98 ng/dL (0.70-1.80) TSH [facility] 0.52 uIU/mL (0.4-4.2) Free T4 01/04/2023 [facility] Referen ce Lab Free T4 <pending> TSH 01/04/2023 [facility] ce Lab TSH <pending> 1 Reference Range: [...]
--- OUTSIDE RECORDS SUMMARY | 2025-10-01 14:00 | XMS_ITS | Clinical Summary ---
Author Organization [facility] Address [address] [place] [address] Care Team Providers Care Assembler Metal Furniture Name Role Phone Vee Allan MD Primary [...] age to complete this topic Care Teams Assembler Metal Furniture Relationship Specialty Start Date End Date Vee Allan MD PCP - General Internal Medicine 12/05/19
== END 2025-10-01 11:14 | disposition home or self-care (01) ==
LOC: HO.MRI 11:13
PROVIDERS: Visit Provider Internal Medicine Rheumatology
DX: M05.79 Rheumatoid arthritis with rheumatoid factor of multiple sites without organ or systems involvement (principal)
CPT/HCPCS: 73220; 73223; A9585

== ENCOUNTER 2025-10-02 16:39 | Emergency (ER) | payer OTHER, SELFPAY ==
--- OUTSIDE RECORDS SUMMARY | 2024-08-06 07:23 | XMS_ITS | Encounter Summary ---
Author Organization [facility] Address [address] [place] [address] Care Team Providers Care Leasing Sales Consultant Name Role Phone Unavailable Primary Care Provider Unavailabl e Encounter Details Date Type Department Care Team (Late st Contact Info) Description 08/06/2024 8:23 AM EDT Hospital Encounter TH HISTORIC ENCOUNTERS EASTERN CONVERSION ONLY Tutu Trivedi MD [address] [place] [address] Social History Tobacco Use Types Packs/Day Years [...] 4:01 PM EDT Karin Vera RN * [place] Suicide Severity Rating Scale (Screener/Recent Self-Report) Question [...] eventual strength) 09/11 Ongoing 2. Dominant R recorder helper gravity prospecting strength at least 35# (vs 20initial, vs [...]
--- OUTSIDE RECORDS SUMMARY | 2024-11-04 08:00 | XMS_ITS ---
Author Organization [facility] Address [address] [place] [phone] Care Team Providers Care Residential Care Officer Name Role Phone IKER ROBLERO PA-C Primary Care Provider Latonya Ramirez Unavailable [phone] Allergies Allergen (clinical drug ingredient) Drug/Non Drug Allergy documented on EMR Reaction Allergy Type Onset Date Status erythromycin ERYTHROMYCIN Skin Rash Drug Allergy A ctive REASON FOR VISIT PAP AFTER PREMARIN USE Encounters Encounter Location Date Provider Diagnosis [address] [address] 11/04/2024 Latonya Lozano Plan Of Treatment No Information Progress Notes * DAWSON OLSONMOONOB:1965 (60 yo F)Acc No.[id number]:11/04/2024 PROGRESS NOTES Patient: MARCUS RODRIGUEZ Appointment Provider: Shannon Lozano M.D. :1965 A ge:59 Y S ex:Female Date:11/04/2024 Address:[address] [place], [place] [id number] Pcp:IKER ROBLERO PA-C Subjective: * Chief Complaints: [...] on cytologic smear of cervix (ASC-US). * Training And Documentation Specialist History: G ravida/ Para 2 /2. S exual activity n ot currently sexually active. L ast Pap Smear: ASCUS, POS HRHPV (Neg 16, 18/45), 03/28/22 LGSIL, POS HRHPV (neg 16, 18/45), 11/21/17 NEG HRHPV, 2011. M ammogram: < 50% density, 02/27/19 < 50% density, 07/26/2017 normal, 07/2016 with follow up Lt Diagnostic 07/09/2016 Bx recommended. A bnormal Pap Smear: [place] Negative, 06/06/22 [place] Negative, 03/2022 LGSIL, + HRHPV. L MP [...] Electronic signature of Pato Lozano MD on 10/02/2025 at 05:04 PM EST Sign off status: Pending * Appointment Provider: Shannon Lozano M.D. Date: Generated for Renay bear/Hilton/Nelsonsmitting on: 12/02/2024 05:04 PM EST
--- OUTSIDE RECORDS SUMMARY | 2024-12-05 05:40 | XMS_ITS ---
Author Organization [facility] Address [address] [place] [address] Care Team Providers Care Wet Process Operator Name Role Phone IKER ROBLERO PA-C Primary Care Provider Latonya Ramirez Unavailable [phone] Allergies Allergen (clinical drug ingredient) Drug/Non Drug [...] 6-10 Encounters Encounter Location Date Provider Diagnosis [address] [address] 12/05/2024 Latonya Lozano Plan Of Treatment No Information Progress Notes * MIS OLSONOB:1965 (60 yo F)Acc No.[id number]:12/05/2024 PROGRESS NOTES Patient: MARCUS RODRIGUEZ Appointment Provider: Shannon Lozano M.D. :1965 A ge:59 Y S ex:Female Date:12/05/2024 Address:[address] [place] [address] Pcp:IKER ROBLERO PA-C Subjective: * Chief Complaints: [...] on cytologic smear of cervix (ASC-US). 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 S exual activity n ot currently sexually active. L ast Pap Smear: ASCUS, POS HRHPV (Neg 16, 18/45), 03/28/22 LGSIL, POS HRHPV (neg 16, 18/45), 11/21/17 NEG HRHPV, 2011. M ammogram: < 50% density, 02/27/19 < 50% density, 07/26/2017 normal, 07/2016 with follow up Lt Diagnostic 07/09/2016 Bx recommended. A bnormal Pap Smear: [place] Negative, 06/06/22 [place] Negative, 03/2022 LGSIL, + HRHPV. L MP [...] of Pato Lozano MD on 10/02/2025 at 05:03 PM EST Sign off status: Pending * Appointment Provider: Shannon Lozano M.D. Date: 0 12/05/2024 Generated for Renay bear/Hilton/Shaquille on: 12/02/2024 05:03 PM EST
--- OUTSIDE RECORDS SUMMARY | 2025-02-14 06:00 | XMS_ITS ---
Author Organization [facility] Address [address] [place] [address] Care Team Providers Care Service Associate Name Role Phone IKER ROBLERO PA-C Primary Care Provider Unav Latonya Panda Unavailable [phone] REASON FOR VISIT ULTRA - CK OVARIES ? DERMOID ON RT ADNEXA ON X RAY Encounters Encounter Location Date Provider Diagnosis [facility] [address] 02/14/2025 Latonya Lozano Plan Of Treatment No Information Progress Notes * DAWSON OLSONMOONOB:1965 (60 yo F)Acc No.[id number]:02/14/2025 PROGRESS NOTES Patient: MARCUS RODRIGUEZ Appointment Provider: Shannon Lozano M.D. :1965 A ge:59 Y S ex:Female Date:02/14/2025 Address:[address] [place], [place] [address] Pcp:IKER ROBLERO PA-C Subjective: * Chief Complaints: [...] 02/14/2025 Generated for Kareeni chema/Hilton/eTransmitting on: 1 12/02/2024 05:03 PM EST
--- OUTSIDE RECORDS SUMMARY | 2025-03-03 08:10 | XMS_ITS ---
Author Organization [facility] Address [address] [place] [address] Care Team Providers Care Paint Sprayer Sandblaster Name Role Phone IKER ROBLERO PA-C Primary Care Provider Latonya Ramirez Unavailable [phone] Allergies Allergen (clinical drug ingredient) Drug/Non Drug [...] Active Encounters Encounter Location Date Provider Diagnosis [address] [address] 03/03/2025 Latonya Lozano Plan Of Treatment No Information Progress Notes * MIS OLSONOB:1965 (60 yo F)Acc No.[id number]:03/03/2025 Patient: Bhavna DIORMARCUS Appointment Provider: Shannon Lozano M.D. :1965 A ge:59 Y S ex:Female Date:03/03/2025 Address:[address] [place] [address] Pcp:IKER ROBLERO PA-C Subjective: * Chief Complaints: [...] on cytologic smear of cervix (ASC-US). * Sole Painter History: G ravida/ Para 2 /2. S exual activity n ot currently sexually active. L ast Pap Smear: ASCUS, POS HRHPV (Neg 16, 18/45), 03/28/22 LGSIL, POS HRHPV (neg 16, 18/45), 11/21/17 NEG HRHPV, 2011. M ammogram: < 50% density, 02/27/19 < 50% density, 07/26/2017 normal, 07/2016 with follow up Lt Diagnostic 07/09/2016 Bx recommended. A bnormal Pap Smear: [place] Negative, 06/06/22 [place] Negative, 03/2022 LGSIL, + HRHPV. L MP [...] 0 03/03/2025 Generated for Renay bear/[place]ilton/[place] on: 12/02/2024 05:04 PM EST
--- OUTSIDE RECORDS SUMMARY | 2025-03-06 05:00 | XMS_ITS ---
Author Organization [facility] Address [address] [facility] [address] [facility] [address] [place] [address] Care Team Providers Care Health And Human Performance Professor Name Role Phone IKER ROBLERO PA-C Primary Care Provider Latonya Ramirez Unavailable [phone] Allergies Allergen (clinical drug ingredient) Drug/Non Drug [...] Gabapentin 100 MG TAKE 1 CAPSULE BY [facility] 3 TIMES A DAY Oral; Duration: 30 [...] 6-10 Encounters Encounter Location Date Provider Diagnosis [address] [place] [address] 03/06/2025 Latonya Lozano Plan Of Treatment No Information Progress Notes * DAWSON OLSONENDOB:1965 (60 yo F)Acc No.[id number]:03/06/2025 Patient: MARCUS RODRIGUEZ Appointment Provider: Shannon Lozano M.D. :1965 A ge:59 Y S ex:Female Date:03/06/2025 Address:[address] [place], [place] [phone] Pcp:IKER ROBLERO PA-C Subjective: * Chief Complaints: [...] on cytologic smear of cervix (ASC-US). * Doll Maker History: G ravida/ Para 2 /2. S exual activity n ot currently sexually active. L ast Pap Smear: ASCUS, POS HRHPV (Neg 16, 18/45), 03/28/22 LGSIL, POS HRHPV (neg 16, 18/45), 11/21/17 NEG HRHPV, 2011. M ammogram: Breast Tissue is Almost Entirely Fatty, , 02/27/19 < 50% density, 07/26/2017 normal, 07/2016 with follow up Lt Diagnostic 07/09/2016 Bx recommended. A bnormal Pap Smear: [place] Negative, 06/06/22 [place] Negative, 03/2022 LGSIL, + HRHPV. L MP [...] of Pato Lozano MD on 10/02/2025 at 05:05 PM EST Sign off status: Pending * Appointment Provider: Shannon Lozano M.D. Date: 0 03/06/2025 Generated for Renay bear/Hilton/Lambertoitting on: 12/02/2024 05:05 PM EST
--- NOTE | ~2025-10-02 | XR_ITS ---
CLINICAL HISTORY: constipation 1 view abdomen Comparison: None provided Findings: No pneumoperitoneum or pneumatosis. Moderate fecal retention within the colon. No small bowel dilatation. No abnormal calcifications. No acute fractures. IMPRESSION: Moderate fecal retention within the colon. This document has been electronically signed by: Noemy Lacy MD on 10/02/2025 18:52:29
[2025-10-02 16:41] VITALS: BP 111/78; PULSE 90; RESP 20; TEMP 36.6; O2SAT 97; BMI 27.5
--- NOTE | 2025-10-02 16:42 | ED.GENADULT ---
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 Patient states she had a recent Hpylori infection but did have a test of clear. Patient has follow up with [facility] in May which is extremely upsetting to her as she states shes had persistent abdominal pain with nausea since her hpylori infection. Patient is incredibly distressed, is tearful and repeatedly asking what I am going to do to treat her pain as she wants it gone today. Patient states she is now suicidal with plan to go into the bautista and take pills due to her longstanding pain. Denies chest pain, shortness of breath, vomiting, diarrhea, headaches, visual changes. MD complaint: chronic abdominal pain, chronic slipped rib syndrome Related Data Home Medications ?Medication ?Instructions ?Recorded ?Confirmed lorazepam 0.5 mg tablet 0.5 mg PO TID PRN 05/14/25 08/27/25 lorazepam 0.5 mg tablet (Ativan) 0.5 mg PO TID PRN 07/03/25 08/27/25 esomeprazole magnesium 40 mg 40 mg PO QAM 08/21/25 08/27/25 capsule,delayed release Previous Rx's ?Medication ?Instructions ?Recorded leg brace (Knee Support Brace) #1 ea 08/12/25 clonazepam 1 mg tablet (Klonopin) 1 mg PO DAILY #4 tabs 09/19/25 omeprazole 20 mg capsule,delayed 20 mg PO DAILY #30 caps 09/19/25 release omeprazole 20 mg capsule,delayed 20 mg PO DAILY #30 caps 09/19/25 release magnesium citrate 300 ml PO DAILY PRN constipation 10/02/25 #296 mL simethicone 125 mg capsule 250 mg (2 x 125 mg) PO BID PRN 10/02/25 abdominal distention #10 caps Allergies Allergy/AdvReac Type Severity Reaction Status Date / Time erythromycin base Allergy Hives Verified 10/02/25 16:45 etanercept (From Enbrel) AdvReac Intermediate diverticuli Verified 10/02/25 16:45 tis leflunomide AdvReac Intermediate diverticuli Verified 10/02/25 16:45 tis prednisone AdvReac Intermediate Body pain Verified 10/02/25 16:45 gabapentin AdvReac Mild tremors Verified 10/02/25 16:45 Review of Systems Review of Systems: Yes all other systems are reviewed and are negative PMFSH Past Medical History Attestation statement: The following information was validated with the patient. Source: old records reviewed and nursing notes reviewed Medical History Dermatographia Helicobacter pylori (H. 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 Sacroiliac joint pain Tendonitis of ankle, right Surgical History H/O decompression of ulnar nerve History of surgery Social History Social History Household Members: Spouse and Family Housing: House Alcohol intake: current Alcohol intake frequency: holidays/special occasions only Patient Tobacco Use Status: Current everyday Tobacco user Tobacco use type: Cigarette Cigarettes Per Day: 10 Years Smoked: 15 years Smoked in Last 30 Days: Yes e-Cigarette/Vaping Use: Never Used Use of substances other than those prescribed or required for medical reasons: No Advance Directives: No Advance Directives Information Provided: No Patient : No service: No Current occupational status: employed 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 Physical Exam ED Vital Signs: Vital Signs - 24 hr 10/02/25 16:41 10/02/25 18:43 Temperature 98 F Pulse Rate 90 Respiratory Rate 20 20 Blood Pressure 111/78 Pulse Oximetry 97 Oxygen Delivery Method Room Air BMI result Body Mass Index 27.5 GENERAL APPEARANCE: ?AxOx4, extremely tearful, anxious appearing, nontoxic HEENT: ?NC, AT. MMM. EOMI, clear conjunctiva, oropharynx clear. NECK: ?Supple without lymphadenopathy.? No stiffness or restricted ROM. HEART:? Normal rate and regular rhythm, normal S1/S2, no m/r/g LUNGS:? CTAB, moving air well. No crackles or wheezes are heard. ABDOMEN: ?Soft, nondistended, no rigidity, diffuse tenderness throughout all 4 quadrants of the abdomen, no overlying skin changes or rashes BACK: No CVAT, no obvious deformity. EXTREMITIES: ?Without cyanosis, clubbing or edema. NEUROLOGICAL: ?Grossly nonfocal. Alert and oriented, moving all 4 extremities. Observed to ambulate with normal gait. Skin: ?Warm and dry without any rash. Course Course Course Narrative: This is a rapid medical exam performed by Micky Alonso NP: Additional HPI, ROS, PE not included below will be deferred to primary provider. Patient is a 60y/o F with pmhx of slipped rib syndrome with subsequent surgery, fibromyalgia, depression presenting with complaint of abdominal pain and right sided rib pain. Recently here, was referred to GI but appt not until May. Reports SI due to chronic pain as well, tearful in triage. Plan: labs, med clearance to start, then CARE eval Reevaluation(s) Reevaluation #1: [id number]: Provider: Lucita Sr PA-C: Patient received in sign-out pending crisis evaluation secondary to SI with plan to OD with pills in bautista and KUB final read. Patient has longstanding history of chest wall nerve pain due to surgery from years ago she has not seen specialists until next year. it is the pain is causing her to feel suicidal. passing gas preliminary read on the KUB does not have any concerns for free air or obvious obstruction findings. plan to try Mag citrate and simethicone. Crisis evaluation has already been ordered we will continue to follow. 1901: KUB shows moderate stool burden. I discussed these results with the patient at bedside we will also introducing myself she will try starting mag citrate her. Patient noted to 'flip' in room from calm and talking to instantly crying about letting all of family down. Crisis eval pending. She has an assigned sitter for her safety. 2047: Patient is endorsing magCitrate didn't work. She is also threatening if I do not address her pain then she will go into the bautista and kill herself. Patient's constipation can be treated at home. She has been medically cleared. This was brought to my attending physician's attention Dr. Muhammad who helped to facilitate crisis coming to evaluate patient now as her SI appears to be more manipulative. 2225: Patient has been cleared from the crisis team denying any SI to them. As patient does not require further intervention in the emergency department she will be discharged home. Attending physican Dr. Muhammad agrees with plan. Time: 18:43 Medications Administered Discontinued Medications Generic Name Dose Route Start Last Admin Trade Name Freq PRN Reason Stop Dose Admin Lactated Ringer's 1,000 mls @ 999 mls/hr 10/02/25 18:19 10/02/25 18:43 Lr IV 10/02/25 19:19 999 mls/hr .Q1H1M ONE Administration Ketorolac Tromethamine 15 mg 10/02/25 18:07 10/02/25 18:43 Ketorolac Tromethamine 15 Mg/Ml Vial IVPUSH 10/02/25 18:08 15 mg ONCE ONE Administration Magnesium Citrate 300 ml 10/02/25 19:02 10/02/25 19:48 Magnesium Citrate 300 Ml Solution PO 10/02/25 19:03 300 ml ONCE ONE Administration Morphine Sulfate 4 mg 10/02/25 18:07 10/02/25 18:43 Morphine Sulfate 4 Mg/Ml Cartridge IVPUSH 10/02/25 18:08 4 mg ONCE ONE Administration Protocol Medical Decision Making Medical Decision Making MDM Narrative: Patient is a 52-year-old female with medical history of Kienbock's disease of the right wrist, chest wall pain, sacroiliac joint dysfunction bilaterally, bilateral knee pain, lumbar radiculopathy, fibromyalgia, right rotator cuff tendonitis, rheumatoid arthritis with positive RF, slipped rib syndrome s/p 9th and 10th wired together by surgeon in [place], presents to ED due to acute on chronic pain in multiple areas of her body, and suicidal ideation due to longstanding pain. Patient states she had a recent Hpylori infection but did have a test of clear. Patient has follow up with [facility] in May which is extremely upsetting to her as she states shes had persistent abdominal pain with nausea since her hpylori infection. Patient is incredibly distressed, is tearful and repeatedly asking what I am going to do to treat her pain as she wants it gone today. Patient states she is now suicidal with plan to go into the bautista and take pills due to her longstanding pain. VS on initial observation-BP 111/78, pulse rate of 90, respiratory rate of 20, afebrile with oral temp of 98?, O2 saturation 97% on room air. On physical exam the patient is incredibly upset, tearful, anxious appearing however is not toxic appearing. On physical exam patient has widespread tenderness throughout her whole body ( patient with history of fibromyalgia). 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 Plan: KUB, pain management with 4 mg IV morphine, 15 mg IV Toradol Labs without leukocytosis/leukopenia no left shift, no evidence of anemia, no electrolyte abnormalities Ethanol level of 83- Patient states she had 1 glass of wine this afternoon, denies daily drinking, or history of alcohol use disorder. Differential Diagnosis Differential Diagnoses: The differential diagnosis associated with the presentation includes SBO Chronic pain syndrome Fibromyalgia flare Slipped rib syndrome Constipation Admission/Observation Consideration of admission/observation: Escalation of care including admission/observation considered Lab Data MDM Lab Attestation statement: I reviewed the patient's lab results. 10/02/25 17:03 10/02/25 17:03 Labs: Lab Results 10/02/25 Range/Units 17:03 WBC 10.5 (4.8-10.8) X10*3/uL RBC 4.61 (4.20-5.50) X10*6/uL Hgb 14.9 (12.0-16.0) g/dl Hct 43.8 (37.0-47.0) % MCV 95.0 (80.0-98.0) fL MCH 32.3 (27.0-33.0) pg MCHC 34.0 (31.0-35.0) g/dl RDW 13.1 (11.0-16.0) % Plt Count 349 (160-400) X10*3/uL MPV 8.8 L (9.4-12.3) fL Immature Gran % (Auto) 0.3 (0.0-0.4) % Neut % (Auto) 62.3 (45-73) % Lymph % (Auto) 30.1 (20-40) % Bacon % (Auto) 5.7 (2-11) % Eos % (Auto) 1.2 (0-4) % Baso % (Auto) 0.4 (0-2) % Lymph # (Auto) 3.2 (1.2-4.9) X10*3/uL Bacon # (Auto) 0.6 (0.1-1.2) X10*3/uL Eos # (Auto) 0.1 (0.0-0.4) X10*3/uL Baso # (Auto) 0.0 (0.0-0.2) X10*3/uL Abs Immat Gran (auto) 0.03 (0.00-0.03) X10*3/uL Absolute Neuts (auto) 6.5 (2.0-8.3) x10*3/uL Absolute Nucleated RBC 0.000 (0.0-0.012) X10*3/uL Nucleated RBC % (auto) 0.0 (0.0-0.2) /100WBC Sodium 144 (135-145) mmol/L Potassium 3.7 (3.3-5.1) mmol/L Chloride 110 H (96-108) mmol/L Carbon Dioxide 23 (22-29) mmol/L Anion Gap 15 (12-20) BUN 5 L (9-16) mg/dL Creatinine 0.77 (0.5-1.4) mg/dL Estim Creat Clear Calc 77.7 Estimated GFR > 60 Random Glucose 86 (60-115) mg/dL Calcium 9.4 (8.4-10.2) mg/dL Total Bilirubin 0.3 (0.0-1.0) mg/dL AST 25 (5-31) U/L ALT 21 (0-31) U/L Alkaline Phosphatase 101 (39-117) U/L Total Protein 7.4 (6.5-8.0) g/dL Albumin 4.7 (3.5-5.0) g/dL Ethyl Alcohol 83 mg/dL Discharge Plan Discharge Clinical Impression: Abdominal pain Qualifiers: Abdominal location: epigastric Qualified Code(s): R10.13 - Epigastric pain Constipation Qualifiers: Constipation type: unspecified constipation type Qualified Code(s): K59.00 - Constipation, unspecified Patient Disposition: Home, Self-Care Instructions: Constipation (DC) Additional Instructions: You were seen in the emergency department today for epigastric abdominal pain that radiated to her back. You were able to demonstrate that you can tolerate fluids by mouth and have not had any episodes of vomiting diarrhea and are not dehydrated. Your lab work was reassuring showing no evidence of infection or inflammation. There is also no evidence of hepatobiliary disease pancreatitis kidney or liver injury. You had abdominal imaging that showed a significant stool burden. Findings: No pneumoperitoneum or pneumatosis. Moderate fecal retention within the colon. No small bowel dilatation. No abnormal calcifications. No acute fractures. IMPRESSION: Moderate fecal retention within the colon. You were given magnesium citrate while here to help facilitate bowel movement. You had a prescription for this that you may retake tomorrow if needed. You were given another prescription to help reduce abdominal distention from the colon. A daily fiber intake of 20 to 25 g/day is generally recommended.? The effects of fiber on bowel movements may take several weeks. Bloating and flatulence is a common problem with increased fiber intake. General measures such as increased fluid intake and exercise are suggested to treat constipation. Timed toilet training consists of attempting a bowel movement at least twice a day, usually 30 minutes after meals, and to strain for no more than five minutes. Bathroom measures include: sitting up, leaning forward and raising the feet 8 to 12 inches above the ground. First line treatments are bulk forming laxatives and are available over the counter such as: metamucil, citrucel, Fibercon. These laxatives are effective in increasing the frequency and softening the consistency of stool with a minimum of adverse effects. They may be used alone or in combination with an increase in dietary fiber. Second line is Osmotic laxatives if not responding to bulk laxatives. Examples of these are miralax, and milk of magnesia.? Stool softeners (docusate), suppositories (glycerin or bisacodyl), and enemas, although widely used, have limited clinical efficacy. If all else fails and no bowel movement in one week, increased pain or abdominal distention, go to ER immediately. Prescriptions: New magnesium citrate Solution 300 ml PO DAILY PRN (Reason: constipation) Qty: 296 0RF simethicone 125 mg capsule 250 mg PO BID PRN (Reason: abdominal distention) Qty: 10 0RF No Action omeprazole 20 mg capsule,delayed release(DR/EC) 20 mg PO DAILY Qty: 30 0RF clonazepam [Klonopin] 1 mg tablet 1 mg PO DAILY Qty: 4 0RF omeprazole 20 mg capsule,delayed release(DR/EC) 20 mg PO DAILY Qty: 30 0RF lorazepam 0.5 mg tablet 0.5 mg PO TID PRN lorazepam [Ativan] 0.5 mg tablet 0.5 mg PO TID PRN (DME) Knee Support Brace Misc See Rx Instructions .Route Qty: 1 0RF Rx Instructions: As directed left knee hinge brace Dx: osteoarthritis esomeprazole magnesium 40 mg capsule,delayed release(DR/EC) 40 mg PO QAM Referrals: [facility] [Provider Group, Gastroenterology] Print Language: Occitan
--- OUTSIDE RECORDS SUMMARY | 2025-10-02 17:03 | XMS_ITS | Encounter Summary ---
Author Organization [facility] Address [address] [place] [address] Care Team Providers Care Can Cutter Name Role Phone Tasia Ash MD Primary Care Provider [phone] Jewel Manzano MD Unavailable [phone] Jalil Paulson MD Unavailable Unavailable Encounter Details Date Type Department Care Team Description 01/08/2024 Pt. Non Urgent Medic al Question Gastroenterology - [place] 175 [facility] [address] [place] [id number] Rajan Sanders PA-C Social History Tobacco Use [...] on filedocumented in this encounter Care Teams Can Cutter Relationship Specialty Start Date End Date Tasia Ash MD [address] [place] [address] PCP - General Internal Medicine 04/27/23 Jewel Manzano MD 175 [facility] [address] [place] [address] ORTHOPEDIC SURGERY 07/14/23 Jalil Paulson MD [address] [place] [address] [place] [address] Ophthalmology 11/09/23 06/02/24 [facility] Specialist Rheumatology 11/09/23 Trivedi Specialist PAIN MANAGEMENT 12/18/23 [facility] Specialist Rheumatology 06/03/24 [facility] neurology Specialist Neurology 06/03/24 Erica Specialist Optometry 06/03/24 documented as of this encounter
--- OUTSIDE RECORDS SUMMARY | 2025-10-02 17:03 | XMS_ITS | Encounter Summary ---
Author Organization [facility] Address [address] [place] [address] Care Team Providers Care Company Laundry Worker Name Role Phone Tasia Ash MD Primary Care Provider [phone] Jewel Manzano MD Unavailable [phone] Jalil Paulson MD Unavailable Unavailable Encounter Details Date Type Department Care Team Description 11/14/2023 Pt. Non Urgent Medic al Question Adult Medicine - [place] [address] [place] [address] Tasia Ash MD [address] [place] [address] Social History Tobacco Use Types Packs/Day Years [...] Telephone Encounter - Bessy العراقي L.P.N. - 11/14/2023 1:09 PM EST From: María Phillips To: César Ash Sent: 11/14/2023 12:35 PM EST Subject: Message unanswered Just wondering why there is no response to my message on 11/10. I am not a doctor therefore I have questions when I see an abnormal test result. I told you I was having severe abdominal pain and of course I???m concerned when I see those results. I???m very concerned and confused with the lack of empathy and concern on your part as my physician. These issues are not in my head documented in this encounter Plan of Treatment Not on file documented as of this encounter Visit Diagnoses Not on filedocumented in this encounter Care Teams Company Laundry Worker Relationship Specialty Start Date End Date Tasia Ash MD [address] [place] [address] PCP - General Internal Medicine 04/27/23 Jewel Manzano MD [address] [address] ORTHOPEDIC SURGERY 07/14/23 Jalil Paulson MD [address] [address] Ophthalmology 11/09/23 06/02/24 [facility] Specialist Rheumatology 11/09/23 Trivedi Specialist PAIN MANAGEMENT 12/18/23 [facility] Specialist Rheumatology 06/03/24 [facility] neurology Specialist Neurology 06/03/24 [facility] Specialist Optometry 06/03/24 documented as of this encounter
--- OUTSIDE RECORDS SUMMARY | 2025-10-02 17:03 | XMS_ITS | Encounter Summary ---
Author Organization [facility] Address [address] [place] [address] [place] [phone] Phone Care Team Providers Care Prime Minister Name Role Phone Vee Allan MD Primary Care Pr ovider Encounter Details Date Type Department Care Team (Late st Contact Info) Description 10/08/2020 Ancillary Orders [facility] - Orthopaedics Outpatient Practice [address], 1st [address], [address] [place] [address] Finn Bone MD [address] [place] [address] [email or web address] Hand joint pain Social History Tobacco [...] hand documented in this encounter Care Teams Prime Minister Relationship Specialty Start Date End Date Vee Allan MD [address] [place] [address] PCP - General Internal Medicine 09/01/20 documented as of this encounter Additional Source Comments The information contained in this document represents components of the legal health record. It is not the complete legal health record.[facility]
--- OUTSIDE RECORDS SUMMARY | 2025-10-02 17:03 | XMS_ITS | Encounter Summary ---
Author Organization [facility] Address [address] [place] [address] [place] [address] Phone Care Team Providers Care Food And Nutrition Supervisor Name Role Phone Vee Allan MD Primary Care Pr ovider Encounter Details Date Type Department Care Team (Late st Contact Info) Description 10/08/2020 Ancillary Orders [facility] - Orthopaedics Outpatient Practice [address] [facility], 1st Floor, [address] [place] [address] Finn Bone MD [address] [place] [address] [email or web address] Hand joint pain Social History Tobacco Use [...] hand documented in this encounter Care Teams Food And Nutrition Supervisor Relationship Specialty Start Date End Date Vee Allan MD [address] [place] [address] PCP - General Internal Medicine 09/01/20 documented as of this encounter Additional Source Comments The information contained in this document represents components of the legal health record. It is not the complete legal health record.[facility]
--- OUTSIDE RECORDS SUMMARY | 2025-10-02 17:03 | XMS_ITS | Encounter Summary ---
Author Organization [facility] Address [address] [place] [address] Care Team Providers Care Pantograph Ii Engraver Name Role Phone Tasia Ash MD Primary Care Provider [phone] Jewel Manzano MD Unavailable [phone] Jalil Paulson MD Unavailable Unavailable Encounter Details Date Type Department Care Team Description 10/10/2023 Telephone Adult Medicine - [address] [address] Henry Acevedo PA-C [address] [place] [address] Social History Tobacco Use Types Packs/Day Years [...] encounter Miscellaneous Notes * Telephone Encounter - Zari Marie M.A. - 10/11/2023 11:25 AM EST Received notes you requested. In your in basket. * Telephone Encounter - Zari Marie M.A. - 10/11/2023 10:24 AM EST Requested notes via fax from [facility] Rheumatology F. [phone] from pod C * Telephone Encounter - Henry Acevedo PA-C - 10/10/2023 5:47 PM EST Please reach out to [facility] rheumatology Dr. Light for last 2 office notes and any labs within the last 6 months. Thank you documented in this encounter Plan of Treatment Not on file documented as of this encounter Visit Diagnoses Not on filedocumented in this encounter Care Teams Pantograph Ii Engraver Relationship Specialty Start Date End Date Tasia Ash MD [address] [place] [address] PCP - General Internal Medicine 04/27/23 Jewel Manzano MD 175 [facility] [address] [place] [address] ORTHOPEDIC SURGERY 07/14/23 Jalil Paulson MD [address] [address] Ophthalmology 11/09/23 06/02/24 [facility] Specialist Rheumatology 07/14/23 11/08/23 [facility] Specialist Rheumatology 11/09/23 Trivedi Specialist PAIN MANAGEMENT 12/18/23 [place] Specialist Rheumatology 06/03/24 [facility] neurology Specialist Neurology 06/03/24 [facility] Specialist Optometry 06/03/24 documented as of this encounter
--- OUTSIDE RECORDS SUMMARY | 2025-10-02 17:03 | XMS_ITS | Encounter Summary ---
Author Organization [facility] Address [address] [place] [address] Care Team Providers Care Control Valve Technician Name Role Phone Tasia Ash MD Primary Care Provider [phone] Jewel Manzano MD Unavailable [phone] Jalil Paulson MD Unavailable Unavailable Encounter Details Date Type Department Care Team Description 01/11/2024 Pt. Non Urgent Medic al Question Gastroenterology - [place] 175 [facility] [place] [facility] [address] [place] [phone] Rajan Sanders PA-C Social History Tobacco Use [...] on filedocumented in this encounter Care Teams Control Valve Technician Relationship Specialty Start Date End Date Tasia Ash MD [address] [place] [address] PCP - General Internal Medicine 04/27/23 Jewel Manzano MD 175 [facility] [address] [place] [address] ORTHOPEDIC SURGERY 07/14/23 Jalil Paulson MD [address] [place] [address] [place] [address] Ophthalmology 11/09/23 06/02/24 [facility] Specialist Rheumatology 11/09/23 Trivedi Specialist PAIN MANAGEMENT 12/18/23 [place] Specialist Rheumatology 06/03/24 [facility] neurology Specialist Neurology 06/03/24 Erica Specialist Optometry 06/03/24 documented as of this encounter
--- OUTSIDE RECORDS SUMMARY | 2025-10-02 17:03 | XMS_ITS | Encounter Summary ---
Author Organization [facility] Address [address] [place] [address] Care Team Providers Care Manager Programs Name Role Phone Tasia Ash MD Primary Care Provider [phone] Jewel Manzano MD Unavailable [phone] Jalil Paulson MD Unavailable Unavailable Encounter Details Date Type Department Care Team Description 01/10/2024 Telephone Gastroenterology - [address] [place] [phone] Rajan Sanders PA-C Social History Tobacco Use [...] * Telephone Encounter - Falguni Fuchs - 01/12/2024 11:40 AM EST I apologize. Patient did have MRI done. * Telephone Encounter - Marita Valdez M.A. - 01/11/2024 1:33 PM EST We only do auths for meds Marita Valdez Prior Auth Dep Ext [phone] * Telephone Encounter - Falguni Jef - 01/10/2024 3:20 PM EST Does the MRI require a prior authorization? Please advise, thanks. documented in this encounter Plan of Treatment Not on file documented as of this encounter Visit Diagnoses Not on filedocumented in this encounter Care Teams Manager Programs Relationship Specialty Start Date End Date Tasia Ash MD [address] [place] [address] PCP - General Internal Medicine 04/27/23 Jewel Manzano MD [address] [address] ORTHOPEDIC SURGERY 07/14/23 Jalil Paulson MD [address] [address] Ophthalmology 11/09/23 06/02/24 Brimer Specialist Rheumatology 11/09/23 Trivedi Specialist PAIN MANAGEMENT 12/18/23 Tallat Specialist Rheumatology 06/03/24 [facility] neurology Specialist Neurology 06/03/24 Erica Specialist Optometry 06/03/24 documented as of this encounter
--- OUTSIDE RECORDS SUMMARY | 2025-10-02 17:03 | XMS_ITS | Encounter Summary ---
Author Organization [facility] Address [address] [place] [address] Care Team Providers Care Cigarette Filter Inspector Name Role Phone Tasia Ash MD Primary Care Provider [phone] Jewel Manzano MD Unavailable [phone] Jalil Paulson MD Unavailable Unavailable Encounter Details Date Type Department Care Team Description 11/10/2023 Pt. Non Urgent Medic al Question Adult Medicine - [place] [address] [place] [address] Tasia Ash MD [address] [place] [address] Social History Tobacco Use Types Packs/Day Years [...] Telephone Encounter - Vee Soliz M.A. - 11/10/2023 3:33 PM ESTFrom: María Phillips To: César Ash Sent: 11/10/2023 11:04 AM EST Subject: Question regarding BLOOD TEST PANEL - CMP Not sure if you received my recent messages concerning blood work. Kind of concerned about SGOT level. Can you explain please, what may be the cause. Thank you documented in this encounter Plan of Treatment Not on file documented as of this encounter Visit Diagnoses Not on filedocumented in this encounter Care Teams Cigarette Filter Inspector Relationship Specialty Start Date End Date Tasia Ash MD [address] [place] [address] PCP - General Internal Medicine 04/27/23 Jewel Manzano MD [address] [address] ORTHOPEDIC SURGERY 07/14/23 Jalil Paulson MD [address] [address] Ophthalmology 11/09/23 06/02/24 Brimer Specialist Rheumatology 11/09/23 Trivedi Specialist PAIN MANAGEMENT 12/18/23 Tallat Specialist Rheumatology 06/03/24 [facility] neurology Specialist Neurology 06/03/24 [facility] Opt[facility] 06/03/24 documented as of this encounter
--- OUTSIDE RECORDS SUMMARY | 2025-10-02 17:03 | XMS_ITS | Encounter Summary ---
Author Organization [facility] Address [address] [place] [address] Care Team Providers Care Financial Report Service Sales Agent Name Role Phone Monty Allan MD Primary Care Provider [phone] [facility], Pcp Primary Care Provider UnavailTasia Barnhart MD Primary Care Provider [phone] Jewel Manzano MD Unavailable [phone] Jalil Paulson MD Unavailable Unavailable Encounter Details Date Type Department Care Team Description 01/10/2020 Orders Only Medicine/Pediatrics - [address] [address] Monty Allan MD [address] [place] [address] Preoperative examination (Primary Dx) Social History Tobacco Use Types [...] as of this encounter Visit Diagnoses Diagnosis Preoperative examination- Primary Preoperative examination, unspecified documented in this encounter Care Teams Financial Report Service Sales Agent Relationship Specialty Start Date End Date Monty Allan MD [address] [place] [address] PCP - General Internal Medicine 02/16/15 07/12/22 [facility] Pcp [address] [place] [address] PCP - General Internal Medicine 07/13/22 04/26/23 Tasia Ash MD [address] [place] [address] PCP - General Internal Medicine 04/27/23 Jewel Manzano MD 175 [facility] [address] [place] [address] ORTHOPEDIC SURGERY 07/14/23 Jalil Paulson MD [address] [address] Ophthalmology 11/09/23 06/02/24 Gringer Specialist Rheumatology 07/14/23 11/08/23 Brimer Specialist Rheumatology 11/09/23 Trivedi Specialist PAIN MANAGEMENT 12/18/23 Tallat Specialist Rheumatology 06/03/24 [facility] neurology Specialist Neurology 06/03/24 Ama[facility] Specialist Optometry 06/03/24 documented as of this encounter
--- OUTSIDE RECORDS SUMMARY | 2025-10-02 17:03 | XMS_ITS | Encounter Summary ---
Author Organization [facility] Address [address] [place] [address] Care Team Providers Care Motor Vehicle Technician Name Role Phone Monty Allan MD Primary Care Provider [facility], Pcp [facility] Tasia Rush MD Primary Care Provider [phone] Jewel Manzano MD Unavailable Jalil Paulosn MD Unavailable Unavailable Encounter Details Date Type Department Care Team Description 11/07/2019 Orders Only Rheumatology - [address] [address] [place], [place] Social History Tobacco Use [...] on filedocumented in this encounter Care Teams Motor Vehicle Technician Relationship Specialty Start Date End Date Monty Allan MD [address] [place] [address] PCP - General Internal Medicine 02/16/15 07/12/22 [facility], Pcp [address] [place] [address] PCP - General Internal Medicine 07/13/22 04/26/23 Tasia Ash MD [address] [place] [address] PCP - General Internal Medicine 04/27/23 Jewel Manzano MD 175 [facility] [address] [place] [address] ORTHOPEDIC SURGERY 07/14/23 Jalil Paulson MD 175 [facility] [address] [place] [address] Ophthalmology 11/09/23 06/02/24 Gringer Specialist Rheumatology 07/14/23 11/08/23 Brimer Specialist Rheumatology 11/09/23 Trivedi Specialist PAIN MANAGEMENT 12/18/23 Tallat Specialist Rheumatology 06/03/24 [facility] neurology Specialist Neurology 06/03/24 Erica Specialist Optometry 06/03/24 documented as of this encounter
--- OUTSIDE RECORDS SUMMARY | 2025-10-02 17:03 | XMS_ITS | Encounter Summary ---
Author Organization [facility] Address [address] [place] [address] Care Team Providers Care Cut Out Machine Operator Name Role Phone Monty Allan MD Primary Care Provider [phone] [facility], Pcp Primary Care Provider UnavailTasia Barnhart MD Primary Care Provider [phone] Jewel Manzano MD Unavailable [phone] Jalil Paulson MD Unavailable Unavailable Reason for Visit * Reason Onset Date Comments Wrist Pain 12/16/2019 Encounter Details Date Type Department Care Team Description 12/16/2019 Telephone Physiatry - [address] [address] Kyle Barahona PA-C Wrist Pain Social History [...] on filedocumented in this encounter Care Teams Cut Out Machine Operator Relationship Specialty Start Date End Date Monty Allan MD [address] [place] [address] PCP - General Internal Medicine 02/16/15 07/12/22 [facility], [address] [address] PCP - General Internal Medicine 07/13/22 04/26/23 Tasia Ash MD [address] [place] [address] PCP - General Internal Medicine 04/27/23 Jewel Manzano MD [address] [address] ORTHOPEDIC SURGERY 07/14/23 Jalil Paulson MD [address] [address] Ophthalmology 11/09/23 06/02/24 Gringer Specialist Rheumatology 07/14/23 11/08/23 Brimer Specialist Rheumatology 11/09/23 Trivedi Specialist PAIN MANAGEMENT 12/18/23 Tallat Specialist Rheumatology 06/03/24 [facility] neurology Specialist Neurology 06/03/24 [place] Specialist Optometry 06/03/24 documented as of this encounter
--- OUTSIDE RECORDS SUMMARY | 2025-10-02 17:03 | XMS_ITS | Encounter Summary ---
Author Organization [facility] Address [address] [place] [address] Care Team Providers Care Blueprint Processor Name Role Phone Tasia Ash MD Primary Care Provider [phone] Jewel Manzano MD Unavailable [phone] Jalil Paulson MD Unavailable Unavailable Encounter Details Date Type Department Care Team Description 10/10/2023 Pt. Non Urgent Medic al Question Adult Medicine - [address] [address] Henry Acevedo PA-C [address] [place] [address] Social History Tobacco Use Types Packs/Day Years [...] on filedocumented in this encounter Care Teams Blueprint Processor Relationship Specialty Start Date End Date Tasia Ash MD [address] [place] [address] PCP - General Internal Medicine 04/27/23 Jewel Manzano MD 175 [facility] [address] [place] [address] ORTHOPEDIC SURGERY 07/14/23 Jalil Paulson MD [address] [address] Ophthalmology 11/09/23 06/02/24 Gringer Specialist Rheumatology 07/14/23 11/08/23 Brimer Specialist Rheumatology 11/09/23 Trivedi Specialist PAIN MANAGEMENT 12/18/23 Tallat Specialist Rheumatology 06/03/24 [facility] neurology Specialist Neurology 06/03/24 [facility] Specialist Optometry 06/03/24 documented as of this encounter
--- OUTSIDE RECORDS SUMMARY | 2025-10-02 17:03 | XMS_ITS | Encounter Summary ---
Author Organization [facility] Address [address] [place] [address] Care Team Providers Care Seat Mender Name Role Phone Monty Allan MD Primary Care Provider [phone] [facility], Pcp Primary Care Provider Tasia Stallings MD Primary Care Provider [phone] Jewel Manzano MD Unavailable [phone] Jalil Paulson MD Unavailable Unavailable Encounter Details Date Type Department Care Team Description 01/01/2020 Microsoft Application Developer Report Medical Records [address] [place] [address] Jersey Rey MD Social History Tobacco Use [...] on filedocumented in this encounter Care Teams Seat Mender Relationship Specialty Start Date End Date Monty Allan MD [address] [place] [address] PCP - General Internal Medicine 02/16/15 07/12/22 [facility], Pcp [address] [place], [place] PCP - General Internal Medicine 07/13/22 04/26/23 Tasia Ash MD [address] [place] [address] PCP - General Internal Medicine 04/27/23 Jewel Manzano MD [address] [address] ORTHOPEDIC SURGERY 07/14/23 Jalil Paulson MD [address] [address] Ophthalmology 11/09/23 06/02/24 Gringer Specialist Rheumatology 07/14/23 11/08/23 Brimer Specialist Rheumatology 11/09/23 Trivedi Specialist PAIN MANAGEMENT 12/18/23 Tallat Specialist Rheumatology 06/03/24 [facility] neurology Specialist Neurology 06/03/24 Ama[facility] Specialist Optometry 06/03/24 documented as of this encounter
--- OUTSIDE RECORDS SUMMARY | 2025-10-02 17:03 | XMS_ITS | Clinical Summary ---
Author Organization [facility] Address [address] [place] [address] Phone Care Team Providers Care Oil Program Compliance Specialist Name Role Phone Vee Allan MD [...] Medical Devices Not on file Care Teams Oil Program Compliance Specialist Relationship Specialty Start Date End Date Vee Allan MD [address] [place] [address] PCP - General Internal Medicine 09/01/20 Additional Source Comments The information contained in this document represents components of the legal health record. It is not the complete legal health record.[facility]
--- OUTSIDE RECORDS SUMMARY | 2025-10-02 17:03 | XMS_ITS | Encounter Summary ---
Author Organization [facility] Address [address] [place] [address] Care Team Providers Care Robotic Welding Operator Name Role Phone Tasia Ash MD Primary Care Provider [phone] Jewel Manzano MD Unavailable [phone] Jalil Paulson MD Unavailable Unavailable Encounter Details Date Type Department Care Team Description 01/04/2024 Pt. Non Urgent Medic al Question Gastroenterology - [place] 175 [facility] [address] [place] [phone] Rajan Sanders PA-C Social History Tobacco Use [...] on filedocumented in this encounter Care Teams Robotic Welding Operator Relationship Specialty Start Date End Date Tasia Ash MD [address] [place] [address] PCP - General Internal Medicine 04/27/23 Jewel Manzano MD 175 [facility] [address] [place] [address] ORTHOPEDIC SURGERY 07/14/23 Jalil Paulson MD [address] [place] [address] [place] [address] Ophthalmology 11/09/23 06/02/24 Brimer Specialist Rheumatology 11/09/23 Trivedi Specialist PAIN MANAGEMENT 12/18/23 Tallat Specialist Rheumatology 06/03/24 [facility] neurology Specialist Neurology 06/03/24 Erica Specialist Optometry 06/03/24 documented as of this encounter
--- OUTSIDE RECORDS SUMMARY | 2025-10-02 17:03 | XMS_ITS | Encounter Summary ---
Author Organization [facility] Address [address] [place] [address] Care Team Providers Care General Office Clerk Name Role Phone Araceli Augustin Primary Care Provider + Encounter Details Date Type Department Care Team ([facility] st Contact Info) Description 08/06/2025 Results Follow-Up Gastroenterology - [place] 175 [facility] 175 [facility] [address] [place] [address] Gia Lance, NICOLE 299 [facility] [address] [place] [address] Social History Tobacco Use Types Packs/Day Years [...] on filedocumented in this encounter Care Teams General Office Clerk Relationship Specialty Start Date End Date Araceli Augustin PA [address] [place] [phone] PCP - General 11/20/24 documented as of this encounter
--- OUTSIDE RECORDS SUMMARY | 2025-10-02 17:04 | XMS_ITS | Encounter Summary ---
Author Organization [facility] Address [address] [place] [address] Care Team Providers Care Guide Dog Mobility Instructor Name Role Phone Taisa Ash MD Primary Care Provider + [phone] Jewel Manzano MD Unavailable [phone] Jalil Paulson MD Unavailable Unavailable Encounter Details Date Type Department Care Team Description 01/12/2024 Telephone Gastroenterology [address] [place] [phone] Rajan Sanders PA-C Social History Tobacco Use [...] encounter Miscellaneous Notes * Telephone Encounter - Rajan Sanders PA-C - 01/12/2024 2:54 PM EST So patient is complaining about epigastric pain and nothing was seen on the MRI. She is talking about an endoscopy and then an upper GI. Most likely an upper GI would be helpful first and then we canschedule an endoscopy. documented in this encounter Plan of Treatment Not on file documented as of this encounter Visit Diagnoses Not on filedocumented in this encounter Care Teams Guide Dog Mobility Instructor Relationship Specialty Start Date End Date Tasia Ash MD [address] [place] [address] PCP - General Internal Medicine 04/27/23 Jewel Manzano MD [address] [address] ORTHOPEDIC SURGERY 07/14/23 Jalil Paulson MD [address] [address] Ophthalmology 11/09/23 06/02/24 Brimer Specialist Rheumatology 11/09/23 Trivedi Specialist PAIN MANAGEMENT 12/18/23 Tallat Specialist Rheumatology 06/03/24 [facility] neurology Specialist Neurology 06/03/24 Erica Specialist Optometry 06/03/24 documented as of this encounter
--- OUTSIDE RECORDS SUMMARY | 2025-10-02 17:04 | XMS_ITS | Encounter Summary ---
Author Organization [facility] Address [address] [place] [address] Care Team Providers Care Systems Accountant Name Role Phone Monty Allan MD Primary Care Provider [phone] [facility], Pcp Primary Care Provider Tasia Stallings MD Primary Care Provider [phone] Jewel Manzano MD Unavailable Jalil Paulson MD Unavailable Unavailable Encounter Details Date Type Department Care Team Description 07/24/2019 Release of Information Medical Records [address] [place] [address] Abstract, Provider Social History Tobacco Use Types [...] on filedocumented in this encounter Care Teams Systems Accountant Relationship Specialty Start Date End Date Monty Allan MD [address] [place] [address] PCP - General Internal Medicine 02/16/15 07/12/22 [facility], Pcp [address] [place], [place] PCP - General Internal Medicine 07/13/22 04/26/23 Tasia Ash MD [address] [place] [address] PCP - General Internal Medicine 04/27/23 Jewel Manzano MD 175 [facility] [address] [place] [address] ORTHOPEDIC SURGERY 07/14/23 Jalil Paulson MD [address] [address] Ophthalmology 11/09/23 06/02/24 Gringer Specialist Rheumatology 07/14/23 11/08/23 Brimer Specialist Rheumatology 11/09/23 Trivedi Specialist PAIN MANAGEMENT 12/18/23 Tallat Specialist Rheumatology 06/03/24 [facility] neurology Specialist Neurology 06/03/24 Ama[facility] Specialist Optometry 06/03/24 documented as of this encounter
--- OUTSIDE RECORDS SUMMARY | 2025-10-02 17:04 | XMS_ITS | Encounter Summary ---
Author Organization [facility] Address [address] [place] [address] Care Team Providers Care Commercial Door Installer Name Role Phone Tasia Ash MD Primary Care Provider Jewel Manzano MD Unavailable [phone] Jalil Paulson MD Unavailable Unavailable Reason for Referral * Non ZACHERY (Routine) - Authorized/Booked Specialty Diagnoses / Procedures Referred By Contac t Referred To Contact ORTHOPEDICS / Orthopedic Diagnoses Numbness and tingling in both hands Procedures REFERRAL TO ORTHOPEDICS (IN NETWORK) Tasia Ash MD [address] [place] [address] Nichelle Archibald, PASharee [address] [place] [id number] Referral ID Status Reason Start Date Expiration Date V isits Requested Visits Authorized [id number] Authorized/B ooked 12/26/2023 12/25/2024 6 6 Encounter Details Date Type Department Care Team Description 12/26/2023 Pt. Non Urgent Medical Question Adult Medicine - [place] [address] [place], [place] [phone] Tasia Ash MD [address] [place], [place] Numbness and tingling in both hands (Primary Dx) Social History Tobacco Use Types [...] Telephone Encounter - Charley Ybarra L.P.N. - 12/26/2023 12:04 PM ESTFrom: María Phillips To: César Ash Sent: 12/26/2023 12:02 PM EST Subject: Bilateral finger numbness I was wondering if you could refer me to a specialist for my finger numbness. Not sure who to see for this. Both hands, middle finger through pinky. Thank you documented in this encounter Plan of Treatment Not on file documented as of this encounter Visit Diagnoses Diagnosis Numbness and tingling in both hands- Primary documented in this encounter Care Teams Commercial Door Installer Relationship Specialty Start Date End Date Tasia Ash MD [address] [place] [address] PCP - General Internal Medicine 04/27/23 Jewel Manzano MD [address] [address] ORTHOPEDIC SURGERY 07/14/23 Jalil Paulson MD [address] [address] Ophthalmology 11/09/23 06/02/24 Brimer Specialist Rheumatology 11/09/23 Trivedi Specialist PAIN MANAGEMENT 12/18/23 Tallat Specialist Rheumatology 06/03/24 [facility] neurology Specialist Neurology 06/03/24 [facility] Special[facility] Optometry 06/03/24 documented as of this encounter
--- OUTSIDE RECORDS SUMMARY | 2025-10-02 17:04 | XMS_ITS | Encounter Summary ---
Author Organization [facility] Address [address] [place] [address] Care Team Providers Care Logistics Officer Name Role Phone Tasia Ash MD Primary Care Provider + [phone] Jewel Manzano MD Unavailable [phone] Jalil Paulson MD Unavailable Unavailable Encounter Details Date Type Department Care Team Description 01/15/2024 Orders Only Medical Records [address] [place] [address] Flavio Hutchins DO Social History Tobacco Use Types Packs/Day Years [...] Date/Time Associated Diagnosis Comments OUTSIDE CT Routine 01/14/2024 OUTSIDE PLAIN FILM Routine 01/14/2024 documented in this encounter Results * OUTSIDE PLAIN FILM (01/14/2024) Flavio Hutchins DO RADIOLOGY * OUTSIDE CT (01/14/2024) Flavio Hutchins DO RADIOLOGY documented in this encounter Visit Diagnoses Not on filedocumented in this encounter Care Teams Logistics Officer Relationship Specialty Start Date End Date Tasia Ash MD [address] [place] [address] PCP - General Internal Medicine 04/27/23 Jewel Manzano MD [address] [address] ORTHOPEDIC SURGERY 07/14/23 Jalil Paulson MD [address] [address] Ophthalmology 11/09/23 06/02/24 Brimer Specialist Rheumatology 11/09/23 Trivedi Specialist PAIN MANAGEMENT 12/18/23 Tallat Specialist Rheumatology 06/03/24 [facility] neurology Specialist Neurology 06/03/24 Ama[facility] Specialist Optometry 06/03/24 documented as of this encounter
--- OUTSIDE RECORDS SUMMARY | 2025-10-02 17:04 | XMS_ITS | Encounter Summary ---
Author Organization [facility] Address [address] [place] [address] Care Team Providers Care Outside Upholsterer Name Role Phone Monty Allan MD Primary Care Provider [phone] [facility], Pcp Primary Care Provider UnavailTasia Barnhart MD Primary Care Provider Jewel Manzano MD Unavailable [phone] Jalil Paulson MD Unavailable Unavailable Reason for Visit * Reason Onset Date Comments TEST RESULTS 07/05/2021 Encounter Details Date Type Department Care Team Description 07/05/2021 Telephone Adult Medicine [facility] [address] [place] [address] Monty Allan, [address] [place] [address] TEST RESULTS Social History Tobacco Use Types [...] encounter Miscellaneous Notes * Telephone Encounter - Joanna Mishra M.A. - 07/05/2021 4:03 PM EDT Pt looking for her reusult of the US SOFT TISSUE HEAD/NECK done on 07/05/21 finalized in chart. * Telephone Encounter - Arlene Keith - 07/05/2021 3:37 PM EDT Inform patient: ANY URGENT OR ABNORMAL RESULTS WIILL RESULT IN A CALL BACK TO THE PATIENT DIXON. Type of test: :US SOFT TISSUE HEAD/NECK Date test was performed: 07/05/21 Where was the test performed: [facility] Who ordered this test?: Henry Acevedo Is the doctor here today?: YES Can the message wait until the doctor returns?: NO IF PATIENT'S PCP IS NOT IN INSTRUCT PATIENT THAT THEY WILL RECEIVE A CALL BACK WHEN THE PCP IS IN THE OFFICE NEXT. documented in this encounter Plan of Treatment Not on file documented as of this encounter Visit Diagnoses Not on filedocumented in this encounter Care Teams Outside Upholsterer Relationship Specialty Start Date End Date Monty Allan MD [address] [place], [place] PCP - General Internal Medicine 02/16/15 07/12/22 [facility], Pcp [address] [place], [place] PCP - General Internal Medicine 07/13/22 04/26/23 Tasia Ash MD [address] [place], [place] PCP - General Internal Medicine 04/27/23 Jewel Manzano MD [address] [address] ORTHOPEDIC SURGERY 07/14/23 Jalil Paulson MD [address] [address] Ophthalmology 11/09/23 06/02/24 Maikol Specialist Rheumatology 07/14/23 11/08/23 Brimer Specialist Rheumatology 11/09/23 Farooq Specialist PAIN MANAGEMENT 12/18/23 Rangel Specialist Rheumatology 06/03/24 [facility] neurology Specialist Neurology 06/03/24 Erica Specialist Optometry 06/03/24 documented as of this encounter
--- OUTSIDE RECORDS SUMMARY | 2025-10-02 17:04 | XMS_ITS | Encounter Summary ---
Author Organization [facility] Address [address] [place] [address] Care Team Providers Care Supervising Deputy Name Role Phone Monty Allan MD Primary Care Provider [phone] [facility], Pcp Primary Care Provider UnavailTasia Barnhart MD Primary Care Provider [phone] Jewel Manzano MD Unavailable [phone] Jalil Paulson MD Unavailable Unavailable Encounter Details Date Type Department Care Team Description 11/30/2021 Telephone Adult Medicine - [place] [address] [place], [place] [id number] Monty Allan MD [address] [place] [address] Social History Tobacco Use Types Packs/Day Years [...] have Coronavirus / COVID-19? No / Unsure 12/02/2021 8:58 AM EST documented as of this encounter Miscellaneous Notes * Telephone Encounter - Monty Allan MD - 12/01/2021 8:48 AM EST No * Telephone Encounter - Vee Soliz M.A. - 12/01/2021 8:42 AM EST Encounter is blank Was there something needed for this patient ? documented in this encounter Plan of Treatment Not on file documented as of this encounter Visit Diagnoses Not on filedocumented in this encounter Care Teams Supervising Deputy Relationship Specialty Start Date End Date Monty Allan MD [address] [place] [id number] PCP - General Internal Medicine 02/16/15 07/12/22 [facility], Pcp [address] [place] [address] PCP - General Internal Medicine 07/13/22 04/26/23 Tasia Ash MD [address] [place] [address] PCP - General Internal Medicine 04/27/23 Jewel Manzano MD [address] [address] ORTHOPEDIC SURGERY 07/14/23 Jalil Paulson MD [address] [address] Ophthalmology 11/09/23 06/02/24 [facility] Specialist Rheumatology 07/14/23 11/08/23 [facility] Specialist Rheumatology 11/09/23 Trivedi Specialist PAIN MANAGEMENT 12/18/23 [place] Specialist Rheumatology 06/03/24 [facility] neurology Specialist Neurology 06/03/24 [place] Specialist Optometry 06/03/24 documented as of this encounter
--- OUTSIDE RECORDS SUMMARY | 2025-10-02 17:04 | XMS_ITS | Encounter Summary ---
Author Organization [facility] Address [address] [place] [address] Care Team Providers Care Detonator Assembler Name Role Phone Tasia Ash MD Primary Care Provider [phone] Jewel Manzano MD Unavailable [phone] Jalli Paulson MD Unavailable Unavailable Encounter Details Date Type Department Care Team Description 01/23/2024 Pt. Non Urgent Medic al Question Adult Medicine - [place] [address] [place] [address] Tasia Ash MD [address] [place] [address] Social History Tobacco Use Types Packs/Day Years [...] Telephone Encounter - Charley Ybarra L.P.N. - 01/23/2024 10:36 AM EDTFrom: María Phillips To: César Ash Sent: 01/23/2024 10:33 AM EDT Subject: Sinus infection? I don???t know if I need to be seen, but I have an extremely leaky left nostril, with pain and pressure behind my left eye. It started last week and lasted for a day or so. Came back yesterday with continuous sneezing and nose dripping like a faucet. Headache and eye pain. If you could recommend something or have a cancellation tod ay in [place] or [place]. I???ve taken MucinexD and Sudafed with little relief. Thank you documented in this encounter Plan of Treatment Not on file documented as of this encounter Visit Diagnoses Not on filedocumented in this encounter Care Teams Detonator Assembler Relationship Specialty Start Date End Date Tasia Ash MD [address] [place] [address] PCP - General Internal Medicine 04/27/23 Jewel Manzano MD [address] [address] ORTHOPEDIC SURGERY 07/14/23 Jalil Paulson MD [address] [address] Ophthalmology 11/09/23 06/02/24 [facility] Specialist Rheumatology 11/09/23 Trivedi Specialist PAIN MANAGEMENT 12[facility]18[facility]24 [facility] neurology Specialist Neurology 06/03/24 [facility] 06/03/24 documented as of this encounter
--- OUTSIDE RECORDS SUMMARY | 2025-10-02 17:04 | XMS_ITS | Encounter Summary ---
Author Organization [facility] Address [address] [place] [address] Care Team Providers Care Fortune Teller Name Role Phone Tasia Ash MD Primary Care Provider [phone] Jewel Manzano MD Unavailable [phone] Jalil Paulson MD Unavailable Unavailable Encounter Details Date Type Department Care Team Description 01/18/2024 [facility] Medical [facility] [address] [place] [address] Elodia Bunn MD [address] [place] [id number] Social History Tobacco Use Types Packs/Day Years [...] on filedocumented in this encounter Care Teams Fortune Teller Relationship Specialty Start Date End Date Tasia Ash MD [address] [place] [address] PCP - General Internal Medicine 04/27/23 Jewel Manzano MD 175 [facility] [address] [place] [id number] ORTHOPEDIC SURGERY 07/14/23 Jalil Paulson MD [address] [place] [address] Ophthalmology 11/09/23 06/02/24 [facility] Specialist Rheumatology 11/09/23 Trivedi Specialist PAIN MANAGEMENT 12/18/23 [place] Specialist Rheumatology 06/03/24 [facility] neurology Specialist Neurology 06/03/24 Erica Specialist Optometry 06/03/24 documented as of this encounter
--- OUTSIDE RECORDS SUMMARY | 2025-10-02 17:04 | XMS_ITS | Patient Health Record ---
Author Organization [facility] [address] Address [address] [place] [address] Care Team Providers Care Rotary Cutter Name Role Phone IKER ROBLERO Unavailable [phone] CHINO YBARRA Unavailable [phone] AdinaMyronSneha Unavailable [phone] Allergies Allergen (clinical drug ingredient) Drug/Non Drug Allergy documented on EMR Reaction Allergy Type Onset Date Status Macrolides and Ketolides hives Drug Allergy Active Results Component Value Reference Range Flag Notes Complement C3, Serum-702201 Reviewed date:02/11/2025 07:43:16 AM Interpretation: Performing Lab:[facility], [address] [place] [address], Phone - [phone], Director - MDalton Notes/Report: and Drug Administration. by [employer]. It has not been cleared or approved by the Food was developed and its performance characteristics determined Test(s) 323310-Pasg-Dw-9 Ab (RDL) Complement C3, Serum 119 82-167 mg/dL Sedimentation Rate-Westergre n-080747 Reviewed date:02/11/2025 07:42:43 AM Interpretation: Performing Lab:[facility] [place], [address] [place] [address], Phone - [phone], Director - Elsa Notes/Report: Test(s) 214563-Btmv-Hn-6 Ab (RDL) was developed and its performance characteristics determined by [facility]. It has not been cleared or approved [...] assigned Comprehensive Metabolic Panel (14), Test Code #163625 to this request. If this is not the testing you wished to receive on this specimen, please contact the [employer] Client Inquiry/Technical Services Department to clarify the test order. We appreciate your business. CBC With Differential/Platel et-768767 Reviewed date:02/11/2025 07:43:32 AM Interpretation: Performing Lab:[facility], [address] [place] [address], [place], Phone - [phone], Director - Elsa Notes/Report: Test(s) 687416-Gdbw-Hg-7 Ab (RDL) was developed and its performance characteristics determined by [employer]. It has not been cleared or approved [...] Grans (Abs) 0.0 0.0-0.1 x10E3/uL Complement C4, Serum-816478 Reviewed date:02/11/2025 07:43:19 AM Interpretation: Performing [facility], [address] [facility], [place], Phone - [phone], Director - Elsa Notes/Report: Test(s) 078335-Wegw-Mr-1 Ab (RDL) was developed and its performance characteristics determined by [facility]. It has not been cleared or approved by the Food and Drug Administration. Complement C4, Serum 18 12-38 mg/dL Iron and TIBC-126245 Reviewed date:07/15/2025 03:58:09 PM Interpretation: Performing [facility], [address] [place] [address], Phone - [phone], Director - [facility] Notes/Report: Iron Bind.Cap.(TIBC) 371 250-450 ug/dL UIBC 318 131-425 ug/dL Iron 53 27-159 ug/dL Iron Saturation 14 15-55 % L Ferritin-512586 Reviewed date:07/15/2025 08:25:45 AM Interpretation: Performing Lab:[facility], [address] [place] [address], Phone - [phone], Director - [facility] Notes/Report: Ferritin 85 15-150 ng/mL CBC With Differential/Platel et-216110 Reviewed date:07/15/2025 08:25:37 AM Interpretation: Performing Lab:[facility] [place], [address] [place] [address], Phone - [phone], Director - [facility] Notes/Report: WBC 7.7 3.4-10.8 x10E3/uL RBC 3.91 [...] Reviewed date:07/15/2025 08:25:45 AM Interpretation: Performing Lab:[facility] [place], [address], [place], Phone - [phone], Director - Elsa Notes/Report: Glucose 75 70-99 [...] IU/L TSH Rfx on Abnormal to Free T4-615176 Reviewed date:07/15/2025 03:58:09 PM Interpretation: Performing Lab:[facility] [place], [address], [place], Phone - [phone], Director - Elsa Notes/Report: TSH 0.436 0.450-4.500 uIU/mL L T4,Free (Direct) 1.14 0.82-1.77 ng/dL CULTURE WOUND DEEP Reviewed date:07/21/2025 01:17:57 PM [...] NO T ANTHRACIS A Report Susceptibility Report Anti-Mi-2 Ab (RDL)-614786 Reviewed date:02/11/2025 07:42:59 AM Interpretation: Performing Lab:[facility], Phone - [phone], Director - [facility] Notes/Report: Test(s) 850144-Wrfu-Qg-0 Ab (RDL) was developed and its performance characteristics determined by [employer]. It has not been cleared or approved by the Food and Drug Administration. Anti-Mi-2 Ab (RDL) Negative Negative Anti-Ro (SS-A) Ab (RDL)-5200 10 Reviewed date:02/11/2025 07:42:55 AM Interpretation: Performing Lab:[facility], Phone - [phone], Director - [facility] Notes/Report: Test(s) 046606-Vyyk-In-1 Ab (RDL) was developed and its performance characteristics determined by [employer]. It has not been cleared or approved by the Food and Drug Administration. Anti-Ro (SS-A) Ab (RDL) <20 <20 Units Negative: <20 Weak Positive: 20-39 Moderate Positive: 40-80 Strong Positive: >80 Anti-Sm Ab (RDL)-592280 Reviewed date:02/11/2025 07:42:50 AM Interpretation: Performing Lab:[address], [place], Phone - [phone], [facility] - [facility]/Report: Test(s) 707314-Ivxt-Qu-2 Ab (RDL) was developed and its performance characteristics determined by [facility]. It has not been cleared or approved by the Food and Drug Administration. Anti-Sm Ab (RDL) <20 <20 Units Negative: <20 Weak Positive: 20-39 Moderate Positive: 40-80 Strong Positive: >80 Anti-La (SS-B) Ab (RDL)-5203 20 Reviewed date:02/11/2025 07:42:47 AM Interpretation: Performing Lab:[facility] [place], [address] [place] [address], Phone - [phone], Director - [facility] Notes/Report: Test(s) 571278-Ljsv-Dg-0 Ab (RDL) was developed and its performance characteristics determined by [facility]. It has not been cleared or approved by the Food and Drug Administration. Anti-La (SS-B) Ab (RDL) <20 <20 Units Negative: <20 Weak Positive: 20-39 Moderate Positive: 40-80 Strong Positive: >80 Comp. Metabolic Panel (14)-3 21239 Reviewed date:02/11/2025 07:43:25 AM Interpretation: Performing Lab:[facility] [place], [address] [place] [address], [place], Phone - [phone], Director - [facility] Notes/Report: Test(s) 020021-Txno-Ph-0 Ab (RDL) was developed and its performance [...] 0-40 IU/L ALT (SGPT) 13 0-32 IU/L Amtt-Ng-1-445294 Reviewed date:02/11/2025 07:43:02 AM Interpretation: Performing Lab:[facility] [address], Phone - [phone], Director - [facility] Notes/Report: Test(s) 076583-Gyod-Up-6 Ab (RDL) was developed and its performance characteristics determined by [facility]. It has not been cleared or approved by the Food and Drug Administration. Anti-Lakisha-1 <0.2 0.0-0.9 AI Creatine Kinase (CK), MB-120 816 Reviewed date:02/11/2025 07:43:06 AM Interpretation: Performing Lab:[facility] [address], Phone - [phone], Director - [facility] Notes/Report: Test(s) 573804-Xeup-Ec-6 Ab (RDL) was developed and its performance characteristics determined by [facility]. It has not been cleared or approved by the Food and Drug Administration. Creatine Kinase (CK), MB 1.4 0.0-5.3 ng/mL C-Reactive Protein, Cardiac- 781805 Reviewed date:02/11/2025 07:43:09 AM Interpretation: Performing Lab:[facility] [address], Phone - [phone], [facility]Report: Test(s) 317138-Auab-Xz-3 Ab (RDL) was developed and its performance characteristics determined by [facility]. It has not been cleared or approved by the Food and Drug Administration. C-Reactive Protein, Cardiac 1.34 0.00-3.00 mg/L Relative Risk for Future Cardiovascular Event Low <1.00 Average 1.00 - 3.00 High >3.00 Anti-dsDNA Antibodies-623169 Reviewed date:02/11/2025 07:43:13 AM Interpretation: Performing Lab:[facility] [address], Phone - [phone], Director - [facility] Notes/Report: Test(s) 578470-Fqss-Zz-5 Ab (RDL) was developed and its performance characteristics determined by [facility]. It has not been cleared or approved by the Food and Drug Administration. Anti-DNA (DS) Ab Qn 1 0-9 IU/mL Negative <5 Equivocal 5 - 9 Positive >9 THYROXINE FREE Reviewed date:07/24/2025 02:40:06 PM Interpretation: Performing Lab: Notes/Report: Free T4 1.16 0.70-1.80 ng/dL TRIIODOTHYRONINE FREE Reviewed date:07/24/2025 02:40:06 PM Interpretation: Performing Lab: Notes/Report: T3, Free 316 230-420 pcg/dL THYROID STIMULATING HORMONE WITH REFLEX TO FREE T4 AND FREE T3 Reviewed date:07/24/2025 02:40:06 PM Interpretation: Performing Lab: Notes/Report: TSH 1.20 0.40-4.00 mcIU/mL EKG Reviewed date:09/16/2025 09:19:30 AM Interpretation: Performing [...] Interpretation: Performing Lab: Notes/Report: Note See Note [facility], a member of [employer] Patient Name: MARÍA PHILLIPS Date of : 1965 Reason for Exam: OTHER Exam Date: 11/18/2024 [id number] EST Report Status: Final Ordering Provider: IKER [...] to the prior neck CTA. [place] ([id number]) -------- FINAL REPOR T -------- Dictated By: Dayami Walker i Dictated Date: 11/19/2024 13:40 ET Assigned Physician: Dayami Diehl Reviewed and Electronically Signed By: Dayami Diehl Signed Date: 025 13:45 ET Workstation ID: [id number] Transcribed By: Self Edit Transcribed Date: 11/19/2024 13:40 ET XR FLUORO UP TO 1 HOUR Reviewed date:02/04/2025 05:11:16 PM Interpretation: Performing Lab: Notes/Report: Note See Note [facility], a member of [employer] Patient Name: MARÍA PHILLIPS Date of : 1965 Reason for Exam: pain Exam Date: 02/04/2025 [id number] EST Report Status: Final Ordering Provider: DAVID [...] Signed Date: 025 12:53 ET Workstation ID: [id number] Transcribed By: Self Edit Transcribed Date: 02/04/2025 12:51 ET MG MAMMO DIGITAL SCREENING W HERACLIO BILAT Reviewed date:02/06/2025 11:57:46 AM Interpretation: Performing Lab: Notes/Report: Note See Note [facility], a member of [facility] Patient Name: MARÍA PHILLIPS Date of : 1965 Reason for Exam: SCREENING Exam Date: 02/05/2025 [id number] EST Report Status: Final Ordering Provider: IKER [...] is recommended in 1 year. Mammo Location: [facility], [address] [place] [address], [address], . -------- FINAL REPOR T -------- Dictated By: Stefani Zamora Dictated Date: 02/06/2025 09:43 ET Assigned Physician: Stefani Zamora Reviewed and Electronically Signed By: Stefani Zamora Signed Date: 025 09:45 ET Workstation ID: [id number] Transcribed By: Self Edit Transcribed Date: 02/06/2025 09:43 ET US HEAD NECK SOFT TISSUE Reviewed date:02/10/2025 05:04:59 PM Interpretation: Performing Lab: Notes/Report: Note See Note [facility], a member of [employer] Patient Name: MARÍA PHILLIPS Date of : 1965 Reason for Exam: ENLARGED LYMPHNODE Exam Date: 02/08/2025 [id number] EST Report Status: Final Ordering Provider: CHINO [...] Morton Signed Date: 15:55 ET Workstation ID: [id number] Transcribed By: Self Edit Transcribed Date: 02/08/2025 15:52 ET TISSUE EXAM Reviewed date:07/20/2025 07:42:46 PM [...] preferred specimen for evaluating avascular necrosis. XR WRIST 3+ VIEWS RIGHT Reviewed date:09/16/2025 09:19:30 AM Interpretation: Performing Lab: Notes/Report: See Note [facility], a member of [facility] AP, lateral, oblique of the right wrist [...] Interpretation: Performing Lab: Notes/Report: Note See Note [facility], a member of [facility] Patient Name: MARÍA PHILLIPS Date of : 1965 Reason for Exam: right wrist pain Exam Date: 08/12/2025 [id number] EST Report Status: Final Ordering Provider: DUC [...] Impression: Advanced avascular necrosis of the lunate CBC WITH AUTO DIFFERENTIAL Reviewed date:03/24/2025 07:49:47 [...] 07:44:34 AM Interpretation: Performing Lab: Notes/Report: Specific [place] Urine 1.010 1.003-1.030 pH, Urine 8.0 5.0-8.0 pH Leukocytes, Urine Negative Negative Nitrite, Urine Negative Negative Protein, Urine Negative <=Trace mg/dL Glucose, Urine Negative Negative mg/dL Ketones, Urine Negative Negative mg/dL Urobilinogen, Urine 0.2 0.2-1.0 mg/dL Bilirubin, Urine Negative Negative Blood, Urine Negative Negative CLOSTRIDIUM DIFFICILE TOXIN Reviewed date:05/08/2025 03:43:30 PM [...] Interpretation: Performing Lab: Notes/Report: Note See Note [facility], a member of [facility] Patient Name: MARÍA PHILLIPS Date of : 1965 Reason for Exam: rm Exam Date: 05/14/2025 [id number] EST Report Status: Final Ordering Provider: JOSHUA KAPLAN PCP: IKER ROBLERO Please see combined report with radiographs of the right hand. -------- FINAL REPOR T -------- Dictated By: Mauro Wright Dictated Date: 05/15/2025 07:41 ET Assigned Physician: Mauro Wright Reviewed and Electronically Signed By: Mauro Wright Signed Date: 07:41 ET Workstation ID: [id number] Transcribed By: Self Edit Transcribed Date: 05/15/2025 07:41 ET XR HAND 3+ VIEWS RIGHT Reviewed date:05/15/2025 07:58:11 AM Interpretation: Performing Lab: Notes/Report: Note See Note [facility], a member of [facility] Patient Name: MARÍA PHILLIPS Date of : 1965 Reason for Exam: pain Exam Date: 05/14/2025 [id number] EST Report Status: Final Ordering Provider: JOSHUA [...] osteoarthritis of the first carpal-metacarpal articulation. Code 72354, 61549 -------- FINAL REPOR T -------- Dictated By: Mauro Wright Dictated Date: 05/15/2025 07:41 ET Assigned Physician: Mauro Wright Reviewed and Electronically Signed By: Mauro Wright Signed Date: 025 07:44 ET Workstation ID: [id number] Transcribed By: Self Edit Transcribed Date: 05/15/2025 07:41 ET TISSUE EXAM Reviewed date:06/08/2025 11:10:45 PM [...] 10% NB formalin fixed and paraffin embedded. BORRELIA BURGDORFERI ANTIBOD Y Reviewed date:12/06/2024 12:06:22 [...] Interpretation: Performing Lab: Notes/Report: Note See Note [facility], a member of [employer] Patient Name: MARÍA PHILLIPS Date of : 1965 Reason for Exam: pain Exam Date: 03/11/2025 [id number] EST Report Status: Final Ordering Provider: DAVID [...] Dictated Date: 03/11/2025 11:02 ET Assigned Physician: Mauor Wright Reviewed and Electronically Signed By: Mauro Wright Signed Date: 11:03 ET Workstation ID: [id number] Transcribed By: Self Edit Transcribed Date: 03/11/2025 11:02 ET HELICOBACTER PYLORI ANTIGEN, STOOL Reviewed date:05/13/2025 04:03:38 PM Interpretation: Performing Lab: Notes/Report: Helicobacter Pylori Ag DETECTED Not detected A This test was performed at [facility] using a chemiluminescent immunoassay intended for [...] Food and Drug Administration. Test performed at [facility], [address] , [place] [address] Krystina Austin MD, PhD - [employer] CALPROTECTIN, STOOL Reviewed date:05/12/2025 05:08:37 PM Interpretation: Performing Lab: Notes/Report: Calprotectin, Fecal 16.5 <50 mcg/g <50 mcg/g Normal 50 - 120 mcg/g Borderline >120 mcg/g Abnormal Borderline results suggest repeat testing in 4 to 6 weeks. Test performed at [facility], [address] , [place] [address] Krystina Austin MD, PhD - Table Top Tile Setter NM HEPATOBILIARY SYSTEM IMAG ING Reviewed date:05/15/2025 03:07:20 PM Interpretation: Performing Lab: Notes/Report: Note See Note [facility], a member of [facility] Patient Name: MARÍA PHILLIPS Date of : 1965 Reason for Exam: Abdominal pain, upper, recurrent, post cholecystectomy Exam Date: 05/15/2025 [id number] EST Report Status: Final Ordering Provider: ALEXEI [...] hepatobiliary scintigraphy status post cholecystectomy. [place] TL ([id number]) -------- FINAL REPOR T -------- Dictated By: Dayami Walker i Dictated Date: 05/15/2025 11:46 ET Assigned Physician: Dayami Diehl Reviewed and Electronically Signed By: Dayami Diehl Signed Date: 025 11:48 ET Workstation ID: [id number] Transcribed By: Self Edit Transcribed Date: 05/15/2025 11:46 ET THYROID STIMULATING IMMUNOGL OBULIN Reviewed date:07/29/2025 07:58:42 [...] 0.11 to 0.39 IU/L. Test performed at [facility], [address] , [place] [address] Krystina Austin MD, PhD - [employer]ter CREATINE KINASE Reviewed date:03/24/2025 07:44:57 AM Interpretation: Performing Lab: Notes/Report: Total CK 87 22-269 unit/L COMPREHENSIVE METABOLIC PANE L Reviewed date:05/05/2025 05:25:25 [...] <6.5 % Mean Bld Glu Estim. 117 CT CHEST WO CONTRAST Reviewed date:06/03/2025 12:20:20 PM Interpretation: Performing Lab: Notes/Report: Note See Note [facility], a member of [employer] Patient Name: MARÍA PHILLIPS Date of : 1965 Reason for Exam: PULMONARY NODULE Exam Date: 05/28/2025 [id number] EST Report Status: Final Ordering Provider: IKER ROBLERO PCP: IKER ROBLERO History: Pulmonary nodule follow-up. Comparison: 12/05/24 Technique: Helical volumetric imaging of the thorax was performed without IV contrast. DLP: 279.09 mGy/cm Fixber [place] Iterative reconstruction technique Findings: The trachea and [...] 2. No developing thoracic lymphadenopathy. [place] ([id number]) -------- FINAL REPOR T -------- Dictated By: Dayami Walker i Dictated Date: 06/02/2025 09:00 ET Assigned Physician: Dayami Diehl Reviewed and Electronically Signed By: Dayami Diehl Signed Date: 025 09:13 ET Workstation ID: [id number] Transcribed By: Self Edit Transcribed Date: 06/02/2025 09:00 ET HELICOBACTER PYLORI ANTIGEN, STOOL Reviewed date:08/05/2025 03:02:36 PM Interpretation: Performing Lab: Notes/Report: Helicobacter Pylori Ag Not detected Not detected This test was performed at [facility] using a chemiluminescent immunoassay intended for [...] Food and Drug Administration. Test performed at [facility], [address] [place] [address] Krystina Austin MD, PhD - [employer] Setter XR KNEE 4+ VIEWS BILAT Reviewed date:08/19/2025 08:27:06 AM Interpretation: Performing Lab: Notes/Report: Note See Note [facility], a member of [employer] Patient Name: MARÍA PHILLIPS Date of : 1965 Reason for Exam: bilateral knee pain Exam Date: 08/14/2025 [id number] EST Report Status: Final Ordering Provider: CELIA ROMO PCP: IKER ROBLERO 4 views weightbearin g of bilateral knees obtained today reviewed including AP, Gomez, later al, jhonnye. Left knee x-rays rubén w mild to [...] progressed from prior x-rays obtained 01/22/2025. XR ESOPHAGRAM Reviewed date:01/01/2025 09:27:26 AM Interpretation: Performing Lab: Notes/Report: Note See Note [facility], a member of [employer] Patient Name: MARÍA PHILLIPS Date of : 1965 Reason for Exam: DYSPHAGIA Exam Date: 12/26/2024 [id number] EST Report Status: Final Ordering Provider: BARBARA MORRISSEY PCP: IKER ROBLERO FINDINGS: Double contrast esophagram performed. COMPARISON: Esophagr am March 04, 2022 HISTORY: Patient is a 59-year-old female with history of globus sensation. Epigastric pain. Knit Goods Mender radiographs: 1 view chest radiograph demonstrates cardiac [...] Signed Date: 025 08:28 ET Workstation ID: [id number] Transcribed By: Self Edit Transcribed Date: 12/26/2024 13:36 ET Resident/PA/AUTO DAMAGE ESTIMATOR: Lidia Godinez XR SHOULDER 2+ VIEWS BILAT Reviewed date:01/08/2025 05:02:44 PM Interpretation: Performing Lab: Notes/Report: Note See Note [facility], a member of [employer] Patient Name: MARÍA PHILLIPS Date of : 1965 Reason for Exam: bilateral shoulder pain Exam Date: 01/08/2025 [id number] EST Report Status: Final Ordering Provider: NICHELLE [...] 02:02:02 PM Interpretation: Performing Lab: Notes/Report: Specific [place] Urine 1.034 1.003-1.030 H pH, Urine 6.5 5.0-8.0 pH Leukocytes, Urine Negative Negative Nitrite, Urine Negative Negative Protein, Urine Trace <=Trace mg/dL Glucose, Urine Negative Negative mg/dL Ketones, Urine Negative Negative mg/dL Urobilinogen, Urine 0.2 0.2-1.0 mg/dL Bilirubin, Urine Negative Negative Blood, Urine Negative Negative XR KNEE 4+ VIEWS BILAT Reviewed date:01/27/2025 08:06:07 AM Interpretation: Performing Lab: Notes/Report: Note See Note [facility], a member of [employer] Patient Name: MARÍA PHILLIPS Date of : 1965 Reason for Exam: ilateral knee pain Exam Date: 01/22/2025 [id number] EST Report Status: Final Ordering Provider: CELIA [...] Interpretation: Performing Lab: Notes/Report: Note See Note [facility], a member of [employer] Patient Name: MARÍA PHILLIPS Date of : 1965 Reason for Exam: cervicalgia Exam Date: 01/24/2025 [id number] EST Report Status: Final Ordering Provider: CHINO YBARRA PCP: IKER ROBLERO EXAMINATION: [facility] IN[facility]: Pain. Symptoms for [...] Signed Date: 025 08:00 ET Workstation ID: [id number] Transcribed By: Self Edit Transcribed Date: 01/24/2025 07:[address] SINUSES WO CONTRAST Reviewed date:01/24/2025 12:18:38 PM Interpretation: Performing Lab: Notes/Report: Note See Note [facility], a member of [employer] Patient Name: MARÍA PHILLIPS Date of : 1965 Reason for Exam: deviated septum,sinonasal polyp Exam Date: 01/24/2025 [id number] EST Report Status: Final Ordering Provider: EDMUND [...] Signed Date: 025 08:42 ET Workstation ID: [id number] Transcribed By: Self Edit Transcribed Date: 01/24/2025 08:15 ET VITAMIN D 25 HYDROXY Reviewed date:03/06/2025 07:35:20 [...] Performing Lab: Notes/Report: Ferritin 58 8-252 ng/mL CBC WITH AUTO DIFFERENTIAL Reviewed date:03/05/2025 [...] cified chronicity, unspecified laterality (M25.519) Referral Organization [facility] [address] Referring Provider First Name IKER Referring Provider Last Name PELHAM Referring Provider Speciality Preventive Medicine Referred Provider Specialty Orthopedic S urgery General Notes Letitia Cox 025 10:47:57 AM > Referral faxed over to [facility] for Bilateral shoulder pain P. [phone] Referral Priority Routine Reason Sleep Medicine Servi [facility]; sleep study; loud snoring Diagnosis 1 Loud snoring (R06.83 ) Referral Organization [facility] [address] Referring Provider First Name IKER Referring Provider Last Name PELHAM Referring Provider Speciality Preventive Medicine Referred Provider Specialty Sleep Medici ne General Notes [address] [facility] [address] [place] (p) [phone], (f) [phone] Clinical Notes Maryann Cox 02:10:39 PM > I called the office and they informed me that they had reached out to the patient and are just waiting for a callback to schedule an appt Referral Priority Routine Reason pain management : ri ght rib pain Diagnosis 1 Rib pain on right si de (R07.81) Referral Organization [facility] [address] Referring Provider First Name IKER Referring Provider Last Name PELHAM Referring Provider Speciality Preventive Medicine Referred Provider Specialty Pain Medicin e Clinical Notes Zoila Narayanan 04/25 09:57:57 AM > Family Physiatry, Address: [address] [place] [address], , Fax number: , Maryann Cox 06/17/2025 02:17:36 PM > The patient was scheduled for 06/05 but she no showed and has not rescheduled yet Referral Priority Routine Reason [facility]; easy bruising Diagnosis 1 Easy bruising (R23.3 ) Referral Organization [facility] [address] Referring Provider First Name IKER Referring Provider Last Name PELHAM Referring Provider Speciality Preventive Medicine Referred Provider Specialty Dermatology General Notes [address], (p) [phone], (f) [phone] Clinical Notes Caren Narayanan 08:43:03 AM > referral faxed with notes Referral Priority Routine Reason Dr. Hoffman Diagnosis 1 Pulmonary nodule (R9 1.1) Diagnosis 2 Centrilobular emphys christine (J43.2) Referral Organization [facility] [address] Referring Provider First Name IKER Referring Provider Last Name PELHAM Referring Provider Speciality Preventive Medicine Referred Provider Specialty Pulmonology General Notes XAVIER VILLANUEVA 06/09 08:34:07 AM > Referral faxed, Dr Hoffman - Pulmonology and Sleep Medicine, [address] [place] [address], , Clinical Notes Kenny Maryann 10/2025 02:17:04 PM > The patient was scheduled for 06/05 but she no showed and has not rescheduled yet Referral Priority Routine Reason [facility] Diagnosis 1 Chronic pain syndrom e (G89.4) Diagnosis 2 Cervical pain (M54.2 ) Referral Organization [facility] [address] Referring Provider First Name IKER Referring Provider Last Name PELHAM [facility] Referred Provider Specialty Orthopedic S urgery General Notes XAVIER VILLANUEVA 06/26 08:13:11 AM > Referral has been faxed, [facility], [address] [place] [phone], , Clinical Notes Maryann Cox 02:25:30 PM > I called the office, and they informed me they had reached out to the patient multiple times with no response. I then spoke with the patient, who stated she was not aware a referral had been sent. She said she will call the office back Referral Priority Stat Reason Spine Surgery - [facility] Diagnosis 1 Lumbar back pain (M5 4.50) Diagnosis 2 Chronic lumbar radic ulopathy (M54.16) Referral Organization [facility] [address] Referring Provider First Name IKER Referring Provider Last Name PELHAM Referring Provider [facility] [address] Preventive Medicine Referred Provider Specialty Spinal Cord Injury Medicine General Notes XAVIER VILLANUEVA 07/08 03:54:08 PM > referral has been initiated & faxed, [facility]- Spine Surgery, [address], [address], [place], , Most recent MRI was done at [facility] 01/14/25 Clinical Notes Maryann Cox 01/2025 02:17:15 PM > I called [facility] Spine Surgery, and they are requesting an updated MRI taken within the past year. They asked that we fax it to their office. Once received, they will review the patient's records and contact her to schedule., Maryann Cox 07/17/2025 11:04:32 AM > Scheduled for 07/23 at 1 pm. Pt aware Referral Priority Stat Reason [facility] Gastroenterology Diagnosis 1 Epigastric abdominal pain (R10.13) Referral Organization [facility] [address] Referring Provider First Name IKER Referring Provider Last Name ANNIKA Referring Provider Speciality Preventive Medicine Referred Provider Specialty Gastroentero logy General Notes XAVIER VILLANUEVA 09/24 08:31:39 AM EST > Referral has been faxed, [facility] - Gastroenterology, [facility] Office, [address] [place] [id number], Clinical Notes Maryann Cox 03:18:32 PM EST > [phone] Referral Priority Urgent Medications Medication SIG (Take, Route, Frequency, Duration) Notes Start Date End Date Status Polymyxin B-Trimethoprim 47598-9.1 UNIT/ML Solution 1 drop into affected eye [...] Status W/U Status Risk Notes Problem Hyperkalemia (18987527) Hyperkalemia (E87.5) Active confirmed Problem Chronic pain syndrome (330378535) Chronic pain syndrome (G89.4) Active confirmed Problem Centrilobular emphysema (75693147) Centrilobular emphysema (J43.2) Active confirmed Problem Pulmonary nodule (521547771) Pulmonary nodule (R91.1) Active confirmed Problem Breathing painful (05374068) Rib pain on right side (R07.81) Active confirmed Problem Tremor (94276396) Tremor (R25.1) Active confirm ed Problem Chronic fatigue syndrome (54542217) Chronic fatigue (R53.82) Active confirmed Problem Paresthesia (finding) (74509920) Paresthesias (R20.2) Active confirmed Problem Lumbar radiculopathy (229290657) Chronic lumbar radiculopathy (M54.16) Active confirmed Problem Cervical pain (86479132) Cervical pain (M54.2) Active confirmed Problem Mixed anxiety and depressive disorder (296971966) Depression with anxiety (F41.8) Active confirmed Problem 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 Problem Inactive tuberculosis (finding) (52998888) History of latent tuberculosis (Z86.15) Active confirmed Problem Rheumatoid arthritis (28550045) Rheumatoid arthritis involving multiple sites, unspecified whether rheumatoid factor present (M06.9) Active confirmed Problem Rheumatoid arthritis (24273353) Rheumatoid arthritis involving multiple sites with positive rheumatoid factor (M05.79) Active confirmed Problem Lymphadenopathy (86389382) Lymphadenopathy, axillary (R59.0) Active confirmed Problem Cervical spondylosis (491116642) Cervical spondylosis (M47.812) Active confirmed Problem General weakness (52369988) Generalized weakness (R53.1) Active confirmed Problem 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3 [facility] [address] [address] 11/18/2024 IKER ROBLERO Tremor R25.1 ; Cervi veronica spondylosis M47.812 ; Rock's disease E06.3 ; Pain in right arm M79.601 ; Pain in left arm M79.602 ; History of recent fall Z91.81 ; Rheumatoid arthritis involving multiple sites with positive rheumatoid factor M05.79 ; Slipped rib syndrome M94.0 and Depression with anxiety F41.8 [facility] [address] [address] 01/22/2025 CHINO BIRKS Neck pain on right s angela M54.2 ; Rheumatoid arthritis involving multiple sites with positive rheumatoid factor M05.79 ; Slipped rib syndrome M94.0 ; Rock's disease E06.3 and Depression with anxiety F41.8 [facility] [address] [address] 02/03/2025 CHINO BIRKS Lymphadenopathy, axillary R59.0 ; Rheumatoid arthritis involving multiple sites, unspecified whether rheumatoid factor present M06.9 ; Rock's disease E06.3 ; Slipped rib syndrome M94.0 ; Anxiety, generalized F41.1 and Tendon calcification M65.80 [facility] [address] [address] 03/05/2025 IKER ROBLERO Rib pain on right si de R07.81 ; Annual physical exam Z00.00 ; Chronic fatigue R53.82 ; Hyperkalemia E87.5 ; Slipped rib syndrome M94.0 ; Depression with anxiety F41.8 and Rheumatoid arthritis involving multiple sites with positive rheumatoid factor M05.79 [facility] [address] 03/21/2025 IKER ROBLERO Heart palpitations R00.2 ; Weakness R53.1 and Dyspnea on exertion R06.09 [facility] [address] 04/23/2025 IKER ROBLERO Depression with anxi ety F41.8 ; Heavy alcohol use F10.90 ; Chronic pain syndrome G89.4 ; Slipped rib syndrome M94.0 ; Rheumatoid arthritis involving multiple sites with positive rheumatoid factor M05.79 ; Pulmonary nodule R91.1 ; History of latent tuberculosis Z86.15 and Loud snoring R06.83 [facility] [address] 05/05/2025 IKER ROBLERO Spontaneous ecchymos es R23.3 ; Skin tear of left upper extremity S41.112A ; Irregular bowel habits R19.8 ; Depression with anxiety F41.8 ; Chronic pain syndrome G89.4 and Rheumatoid arthritis involving multiple sites with positive rheumatoid factor M05.79 [facility] [address] 06/18/2025 IKER ROBLERO Chronic pain syndrom e G89.4 ; Cervical pain M54.2 and Recurrent low back pain M54.50 [facility] [address] 09/04/2025 IKER ROBLERO Redness of left eye H57.89 [facility] [address] 10/29/2024 IKER ROBLERO [facility] [address] 11/04/2024 IKER ROBLERO [facility] [address] [address] 11/07/2024 IKER LEEDSMAHAM [facility] [address] [place] [address] 11/19/2024 IKER LEDESMAHAM [facility] [address] [place] [address] 12/03/2024 IKER LEDESMAHAM [facility] [address] [place] [address] 12/13/2024 IKER LEDESMAHAM [facility] [address] [place] [address] 12/13/2024 IKER ROBLERO Generalized weakness R53.1 and Paresthesias R20.2 [facility] [address] [place] [address] 12/16/2024 IKER LEDESMAHAM [facility] [address] [place] [address] 12/26/2024 IKER LEDESMAHAM [facility] [address] [place] [address] 12/31/2024 IKER LEDESMAHAM [facility] [address] [place] [address] 01/02/2025 IKER LEDESMAHAM [facility] [address] [place] [address] 01/07/2025 IKER LEDESMAHAM [facility] [address] [place] [address] 01/21/2025 IKER LEDESMAHAM [facility] [address] [place] [address] 01/24/2025 IKER LEDESMAHAM [facility] [address] [place] [address] 02/03/2025 IKER LEDESMAHAM [facility] [address] [place] [address] 02/03/2025 IKER LEDESMAHAM [facility] [address] [place] [address] 02/10/2025 IKER LEDESMAHAM [facility] [address] [place] [address] 03/05/2025 IKER ROBLERO Chronic fatigue R53. 82 ; Elevated lipids E78.5 ; Anemia due to vitamin B12 deficiency, unspecified B12 deficiency type D51.9 and Vitamin D deficiency E55.9 [facility] [address] [place] [address] 03/05/2025 IKER PELHAM [facility] [address] [place] [address] 03/05/2025 IKER PELHAM [facility] [address] [place] [address] 03/05/2025 IKER PELHAM [facility] [address] [place] [address] 03/21/2025 IKER PELHAM [facility] [address] [place] [address] 03/24/2025 IKER PELHAM [facility] [address] [place] [address] 04/22/2025 IKER PELHAM [facility] [address] [place] [address] 04/25/2025 IKER PELHAM [facility] [address] [place] [address] 05/01/2025 IKER PELHAM [facility] [address] [place] [address] 05/05/2025 IKER PELHAM [facility] [address] [place] [address] 05/06/2025 IKER PELHAM [facility] [address] [place] [address] 05/13/2025 IKER PELHAM [facility] [address] [place] [address] 05/13/2025 IKER PELHAM [facility] [address] [place] [address] 06/03/2025 IKER PELHAM [facility] [address] [place] [address] 06/18/2025 IKER PELHAM [facility] [address] [place] [address] 06/19/2025 IKER PELHAM Cervical pain M54.2 ; Cervical spondylosis M47.812 and Chronic pain syndrome G89.[address] [facility] [address] [place] [address] 06/25/2025 IKER LEDESMAHAM [facility] [address] [place] [address] 07/08/2025 IKER LEDESMAHAM [facility] [address] [place] [address] 07/08/2025 IKER PELHAM [facility] [address] [place] [address] 07/09/2025 IKER PELHAM [facility] [address] [place] [address] 07/15/2025 IKER LEDESMAHAM Rock's disease E06.3 [facility] [address] [place] [address] 08/14/2025 IKER PELHAM [facility] [address] [place] [address] 09/04/2025 IKER PELHAM [facility] [address] [place] [address] 09/19/2025 IKER PELHAM [facility] [address] [place] [address] 12/09/2024 IKER PELHAM [facility] [address] [place] [address] 12/13/2024 IKER PELHAM [facility] [address] [place] [address] 12/14/2024 IKER PELHAM [facility] [address] [place] [address] 12/14/2024 IKER PELHAM [facility] [address] [place] [address] 12/15/2024 IKER PELHAM [facility] [address] [place] [address] 12/18/2024 IKER PELHAM [facility] [address] [place] [address] 01/01/2025 IKER PELHAM [facility] [address] [place] [address] 01/21/2025 IKER PELHAM [facility] [address] [place] [address] 01/27/2025 [facility] Breast cancer screen ing by mammogram Z12.31 [facility] [address] [place] [address] 03/21/2025 [facility] [address] [place] [address] 04/30/2025 [facility] [address] [place] [address] 05/01/2025 [facility] [address] [place] [address] 05/01/2025 [facility] [address] [place] [address] 06/06/2025 [facility] [address] [place] [address] 06/09/2025 [facility] [address] [place] [address] 06/14/2025 [facility] [address] [place] [address] 06/20/2025 [facility] [address] [place] [address] 06/23/2025 [facility] [address] [place] [address] 06/30/2025 [facility] [address] [place] [address] 07/12/2025 [facility] Adult general medica l exam Z00.00 and Screening for thyroid disorder Z13.29 [facility] [address] [place] [address] 07/15/2025 [facility] [address] [place] [address] 07/16/2025 [facility] [address] [place] [address] 09/04/2025 [facility] [address] [place] [address] 09/22/2025 [facility] [address] [place] [address] 09/22/2025 IKER ANNIKA [facility] [address] [place] [address] 09/22/2025 IKER ANNIKA [facility] [address] [place] [address] 09/23/2025 IKER ANNIKA [facility] [address] [place] [address] 09/23/2025 IKER ANNIKA [facility] [address] [place] [address] 09/23/2025 IKER ANNIKA [facility] [address] [place] [address] 09/23/2025 IKER ANNIKA [facility] [address] [place] [address] 09/23/2025 IKER ANNIKA [facility] [address] [place] [address] 09/23/2025 IKER ANNIKA [facility] [address] [place] [address] 09/23/2025 IKER ANNIKA [facility] [address] [place] [address] 09/24/2025 IKER ANNIKA [facility] [address] [place] [address] 09/24/2025 IKER ANNIKA [facility] [address] [place] [address] 09/26/2025 IKER ANNIKA [facility] [address] [place] [address] 09/26/2025 IKER ANNIKA [facility] [address] [place] [address] 09/26/2025 IKER LEDESMAHAM Assessments Encounter Date Diagnosis (ICD Code) Assessment [...] Patient reports history of RA. Follows with reconstructive surgeon Dr. Clark out of [place]. Has been treated previously with Humira, Enbrel, [...] was diagnosed by Dr. Dubon out of [place], [place]. Taking methocarbamol 750 mg 3 times [...] reviewed. Dictation completed with the use of [employer] voice recognition software, prone to medical misidentifications [...] Patient reports history of RA. Follows with reconstructive surgeon Dr. Clark out of [place]. Has been treated previously with Humira, Enbrel, [...] was diagnosed by Dr. Dubon out of [place], [place]. Taking methocarbamol 750 mg 3 times [...] reviewed. Dictation completed with the use of [employer] voice recognition software, prone to medical misidentifications [...] for 11/20/2024. #Recent fall: Patient seen at [facility] ED 11/02/2024 s/p fall [...] diffuse joint pain and fatigue. Follows with reconstructive surgeon Dr. Clark out of [place], records requested and not yet available for my review. 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 States this was diagnosed by Dr. Dubon out of [place], [place]. Taking methocarbamol 750 mg 3 times [...] reviewed. Dictation completed with the use of [employer] voice recognition software, prone to medical misidentifications [...] for 11/20/2024. #Recent fall: Patient seen at [facility] ED 11/02/2024 s/p fall [...] diffuse joint pain and fatigue. Follows with reconstructive surgeon Dr. Clark out of [place], records requested and not yet available for my review. 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 States this was diagnosed by Dr. Dubon out of [place], [place]. Taking methocarbamol 750 mg 3 times [...] reviewed. Dictation completed with the use of [employer] voice recognition software, prone to medical misidentifications [...] was diagnosed by Dr. Dubon out of [place], [place]. Taking methocarbamol 750 mg 3 times [...] Dictation was accomplished with the use of [employer] voice recognition software, which is prone to [...] collection. Patient reports recent blood work through [facility] which we will request, otherwise last TSH [...] was diagnosed by Dr. Dubon out of [place], [place]. Taking methocarbamol 750 mg 3 times [...] Dictation was accomplished with the use of [employer] voice recognition software, which is prone to [...] was diagnosed by Dr. Dubon out of [place], [place]. Taking methocarbamol 750 mg 3 times daily and gabapentin 100 mg 3 times daily with moderate relief of discomfort. # Anxiety: Stable mood in office. Follows with psychiatric nurse practitioner Cassidy Quiorz as well as therapist. Continue lorazepam 1 [...] Dictation was accomplished with the use of [employer] voice recognition software, which is prone to [...] was diagnosed by Dr. Dubon out of [place], [place]. Taking methocarbamol 750 mg 3 times [...] Dictation was accomplished with the use of [employer] voice recognition software, which is prone to [...] rib syndrome: Follows with Dr. Dubon with [facility]. Underwent repair 12/17/2024. #Ventral hernia: Surgical [...] arthritis: + Rheumatoid factor (152). Follows with reconstructive surgeon Dr. Joshua Kaplan out of [place]. Follow-up labs including CAMILO, ESR/CRP, and comprehensive [...] Follows with psychiatric provider Clarice Lara with [facility]. Taking clonazepam 0.5 mg once daily [...] dysfunction. #Hyperkalemia: Patient reports she was at [facility] ED recently at which time her [...] reviewed. Dictation completed with the use of [employer] voice recognition software, prone to medical misidentifications [...] rib syndrome: Follows with Dr. Dubon with [facility]. Underwent repair 12/17/2024. #Ventral hernia: Surgical [...] arthritis: + Rheumatoid factor (152). Follows with reconstructive surgeon Dr. Joshua Kaplan out of [place]. Follow-up labs including CAMILO, ESR/CRP, and comprehensive [...] Follows with psychiatric provider Clarice Lara with [facility]. Taking clonazepam 0.5 mg once daily [...] dysfunction. #Hyperkalemia: Patient reports she was at [facility] ED recently at which time her [...] reviewed. Dictation completed with the use of [employer] voice recognition software, prone to medical misidentifications [...] reviewed. Dictation completed with the use of [employer] voice recognition software, prone to medical misidentifications [...] reviewed. Dictation completed with the use of [employer] voice recognition software, prone to medical misidentifications [...] ER follow-up hospital follow-up. María presented to [facility] ED 04/19/2025 with chief complaint of [...] any pain medication. Previously followed with [facility] Dr. Trivedi who provided steroid injections. Historically [...] added opioid use. WIll refer to [facility] with goal of establishing safe pain management regimen. #RA: Follows with Joshua Kaplan MD out of [place]. Discussed possibility of chronic pain being related [...] reviewed. Dictation completed with the use of [employer] voice recognition software, prone to medical misidentifications [...] ER follow-up hospital follow-up. María presented to [facility] ED 04/19/2025 with chief complaint of [...] any pain medication. Previously followed with [facility] Dr. Trivedi who provided steroid injections. Historically [...] added opioid use. WIll refer to [facility] with goal of establishing safe pain management regimen. #RA: Follows with Joshua Kaplan MD out of [place]. Discussed possibility of chronic pain being related [...] reviewed. Dictation completed with the use of [employer] voice recognition software, prone to medical misidentifications [...] Patient requesting urgent colonoscopy per recommendation of [facility] surgeon Jewel Dubon. On review of [...] TID without symptom improvement. Follows with [facility] Dr. Trivedi. Historically the patient has tried [...] reviewed. Dictation completed with the use of [employer] voice recognition software, prone to medical misidentifications [...] Patient requesting urgent colonoscopy per recommendation of [facility] surgeon Jewel Dubon. On review of [...] TID without symptom improvement. Follows with [facility] Dr. Trivedi. Historically the patient has tried [...] reviewed. Dictation completed with the use of [employer] voice recognition software, prone to medical misidentifications [...] TID without significant symptom improvement. Follows with [facility] Dr. Trivedi, orthopedic provider Nichelle Carrillo PA-C [...] reviewed. Dictation completed with the use of [employer] voice recognition software, prone to medical misidentifications [...] TID without significant symptom improvement. Follows with [facility] Dr. Trivedi, orthopedic provider Nichelle Carrillo PA-C [...] reviewed. Dictation completed with the use of [employer] voice recognition software, prone to medical misidentifications [...] reviewed. Dictation completed with the use of [employer] voice recognition software, prone to medical misidentifications [...] TID without significant symptom improvement. Follows with [facility] Dr. Trivedi, orthopedic provider Nichelle Carrillo PA-C [...] reviewed. Dictation completed with the use of [employer] voice recognition software, prone to medical misidentifications [...] Patient requesting urgent colonoscopy per recommendation of [facility] surgeon Jewel Dubon. On review of [...] TID without symptom improvement. Follows with [facility] Dr. Trivedi. Historically the patient has tried [...] reviewed. Dictation completed with the use of [employer] voice recognition software, prone to medical misidentifications [...] reviewed. Dictation completed with the use of [employer] voice recognition software, prone to medical misidentifications [...] ER follow-up hospital follow-up. María presented to [facility] ED 04/19/2025 with chief complaint of [...] any pain medication. Previously followed with [facility] Dr. Trivedi who provided steroid injections. Historically [...] added opioid use. WIll refer to [facility] with goal of establishing safe pain management regimen. #RA: Follows with Joshua Kaplan MD out of [place]. Discussed possibility of chronic pain being related [...] reviewed. Dictation completed with the use of [employer] voice recognition software, prone to medical misidentifications [...] rib syndrome: Follows with Dr. Dubon with [facility]. Underwent repair 12/17/2024. #Ventral hernia: Surgical [...] arthritis: + Rheumatoid factor (152). Follows with reconstructive surgeon Dr. Joshua Kaplan out of [place]. Follow-up labs including CAMILO, ESR/CRP, and comprehensive [...] Follows with psychiatric provider Clarice Lara with [facility]. Taking clonazepam 0.5 mg once daily [...] dysfunction. #Hyperkalemia: Patient reports she was at [facility] ED recently at which time her [...] reviewed. Dictation completed with the use of [employer] voice recognition software, prone to medical misidentifications [...] was diagnosed by Dr. Dubon out of [place], [place]. Taking methocarbamol 750 mg 3 times [...] Dictation was accomplished with the use of [employer] voice recognition software, which is prone to [...] was diagnosed by Dr. Dubon out of [place], [place]. Taking methocarbamol 750 mg 3 times [...] Dictation was accomplished with the use of [employer] voice recognition software, which is prone to [...] for 11/20/2024. #Recent fall: Patient seen at [facility] ED 11/02/2024 s/p fall [...] diffuse joint pain and fatigue. Follows with reconstructive surgeon Dr. Clark out of [place], records requested and not yet available for my review. 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 States this was diagnosed by Dr. Dubon out of [place], [place]. Taking methocarbamol 750 mg 3 times [...] reviewed. Dictation completed with the use of [employer] voice recognition software, prone to medical misidentifications [...] Patient reports history of RA. Follows with reconstructive surgeon Dr. Clark out of [place]. Has been treated previously with Humira, Enbrel, [...] was diagnosed by Dr. Dubon out of [place], [place]. Taking methocarbamol 750 mg 3 times [...] reviewed. Dictation completed with the use of [employer] voice recognition software, prone to medical misidentifications [...] for 11/20/2024. #Recent fall: Patient seen at [facility] ED 11/02/2024 s/p fall [...] diffuse joint pain and fatigue. Follows with reconstructive surgeon Dr. Clark out of [place], records requested and not yet available for my review. 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 States this was diagnosed by Dr. Dubon out of [place], [place]. Taking methocarbamol 750 mg 3 times [...] reviewed. Dictation completed with the use of [employer] voice recognition software, prone to medical misidentifications [...] Patient reports history of RA. Follows with reconstructive surgeon Dr. Clark out of [place]. Has been treated previously with Humira, Enbrel, [...] was diagnosed by Dr. Dubon out of [place], [place]. Taking methocarbamol 750 mg 3 times [...] reviewed. Dictation completed with the use of [employer] voice recognition software, prone to medical misidentifications [...] was diagnosed by Dr. Dubon out of [place]. Taking methocarbamol 750 mg 3 times [...] Dictation was accomplished with the use of [employer] voice recognition software, which is prone to [...] was diagnosed by Dr. Dubon out of [place]. Taking methocarbamol 750 mg 3 times [...] Dictation was accomplished with the use of [employer] voice recognition software, which is prone to [...] rib syndrome: Follows with Dr. Dubon with [facility]. Underwent repair 12/17/2024. #Ventral hernia: Surgical [...] arthritis: + Rheumatoid factor (152). Follows with reconstructive surgeon Dr. Joshua Kaplan out of [place]. Follow-up labs including CAMILO, ESR/CRP, and comprehensive [...] Follows with psychiatric provider Clarice Lara with [facility]. Taking clonazepam 0.5 mg once daily [...] dysfunction. #Hyperkalemia: Patient reports she was at [facility] ED recently at which time her [...] reviewed. Dictation completed with the use of [employer] voice recognition software, prone to medical misidentifications [...] Patient requesting urgent colonoscopy per recommendation of [facility] surgeon Jewel Dubon. On review of [...] TID without symptom improvement. Follows with [facility] Dr. Trivedi. Historically the patient has tried [...] reviewed. Dictation completed with the use of [employer] voice recognition software, prone to medical misidentifications [...] ER follow-up hospital follow-up. María presented to [facility] ED 04/19/2025 with chief complaint of [...] any pain medication. Previously followed with [facility] Dr. Trivedi who provided steroid injections. Historically [...] added opioid use. WIll refer to [facility] with goal of establishing safe pain management regimen. #RA: Follows with Joshua Kaplan MD out of [place]. Discussed possibility of chronic pain being related [...] reviewed. Dictation completed with the use of [employer] voice recognition software, prone to medical misidentifications [...] Patient requesting urgent colonoscopy per recommendation of [facility] surgeon Jewel Dubon. On review of [...] TID without symptom improvement. Follows with [facility] drum Dr. Trivedi. Historically the patient has tried [...] reviewed. Dictation completed with the use of [employer] voice recognition software, prone to medical misidentifications [...] ER follow-up hospital follow-up. María presented to [facility] ED 04/19/2025 with chief complaint of [...] any pain medication. Previously followed with [facility] Dr. Trivedi who provided steroid injections. Historically [...] added opioid use. WIll refer to [facility] with goal of establishing safe pain management regimen. #RA: Follows with Joshua Kaplan MD out of [place]. Discussed possibility of chronic pain being related [...] reviewed. Dictation completed with the use of [employer] voice recognition software, prone to medical misidentifications [...] rib syndrome: Follows with Dr. Dubon with [facility]. Underwent repair 12/17/2024. #Ventral hernia: Surgical [...] arthritis: + Rheumatoid factor (152). Follows with reconstructive surgeon Dr. Joshua Kaplan out of [place]. Follow-up labs including CAMILO, ESR/CRP, and comprehensive [...] Follows with psychiatric provider Clarice Lara with [facility]. Taking clonazepam 0.5 mg once daily [...] dysfunction. #Hyperkalemia: Patient reports she was at [facility] ED recently at which time her [...] reviewed. Dictation completed with the use of [employer] voice recognition software, prone to medical misidentifications [...] was diagnosed by Dr. Dubon out of [place], [place]. Taking methocarbamol 750 mg 3 times [...] Dictation was accomplished with the use of [employer] voice recognition software, which is prone to [...] collection. Patient reports recent blood work through [facility] which we will request, otherwise last TSH [...] was diagnosed by Dr. Dubon out of [place], [place]. Taking methocarbamol 750 mg 3 times [...] Dictation was accomplished with the use of [employer] voice recognition software, which is prone to [...] for 11/20/2024. #Recent fall: Patient seen at [facility] ED 11/02/2024 s/p fall [...] diffuse joint pain and fatigue. Follows with reconstructive surgeon Dr. Clark out of [place], records requested and not yet available for my review. 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 States this was diagnosed by Dr. Dubon out of [place], [place]. Taking methocarbamol 750 mg 3 times [...] reviewed. Dictation completed with the use of [employer] voice recognition software, prone to medical misidentifications [...] Patient reports history of RA. Follows with reconstructive surgeon Dr. Clark out of [place]. Has been treated previously with Humira, Enbrel, [...] was diagnosed by Dr. Dubon out of [place], [place]. Taking methocarbamol 750 mg 3 times [...] reviewed. Dictation completed with the use of [employer] voice recognition software, prone to medical misidentifications [...] for 11/20/2024. #Recent fall: Patient seen at [facility] ED 11/02/2024 s/p fall [...] diffuse joint pain and fatigue. Follows with reconstructive surgeon Dr. Clark out of [place], records requested and not yet available for my review. 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 States this was diagnosed by Dr. Dubon out of [place], [place]. Taking methocarbamol 750 mg 3 times [...] reviewed. Dictation completed with the use of [employer] voice recognition software, prone to medical misidentifications [...] Patient reports history of RA. Follows with reconstructive surgeon Dr. Clark out of [place]. Has been treated previously with Humira, Enbrel, [...] was diagnosed by Dr. Dubon out of [place]. Taking methocarbamol 750 mg 3 times [...] reviewed. Dictation completed with the use of [employer] voice recognition software, prone to medical misidentifications [...] was diagnosed by Dr. Dubon out of [place]. Taking methocarbamol 750 mg 3 times [...] Dictation was accomplished with the use of [employer] voice recognition software, which is prone to [...] rib syndrome: Follows with Dr. Dubon with [facility]. Underwent repair 12/17/2024. #Ventral hernia: Surgical [...] arthritis: + Rheumatoid factor (152). Follows with reconstructive surgeon Dr. Joshua Kaplan out of [place]. Follow-up labs including CAMILO, ESR/CRP, and comprehensive [...] Follows with psychiatric provider Clarice Lara with [facility]. Taking clonazepam 0.5 mg once daily [...] dysfunction. #Hyperkalemia: Patient reports she was at [facility] ED recently at which time her [...] questions/concerns arise. Case discussed with collaborating physician Velai Morrison who has reviewed the assessment/plan. Chart, medications, labs, and vital signs reviewed. Dictation completed with the use of [employer] voice recognition software, prone to medical misidentifications [...] Patient requesting urgent colonoscopy per recommendation of [facility] surgeon Jewel Dubon. On review of [...] TID without symptom improvement. Follows with [facility] drum Dr. Trivedi. Historically the patient has tried [...] reviewed. Dictation completed with the use of [employer] voice recognition software, prone to medical misidentifications [...] ER follow-up hospital follow-up. María presented to [facility] ED 04/19/2025 with chief complaint of [...] any pain medication. Previously followed with [facility] Dr. Trivedi who provided steroid injections. Historically [...] added opioid use. WIll refer to [facility] with goal of establishing safe pain management regimen. #RA: Follows with Joshua Kaplan MD out of [place]. Discussed possibility of chronic pain being related [...] reviewed. Dictation completed with the use of [employer] voice recognition software, prone to medical misidentifications [...] ER follow-up hospital follow-up. María presented to [facility] ED 04/19/2025 with chief complaint of [...] any pain medication. Previously followed with [facility] Dr. Trivedi who provided steroid injections. Historically [...] added opioid use. WIll refer to [facility] with goal of establishing safe pain management regimen. #RA: Follows with Joshua Kaplan MD out of [place]. Discussed possibility of chronic pain being related [...] reviewed. Dictation completed with the use of [employer] voice recognition software, prone to medical misidentifications [...] rib syndrome: Follows with Dr. Dubon with [facility]. Underwent repair 12/17/2024. #Ventral hernia: Surgical [...] arthritis: + Rheumatoid factor (152). Follows with reconstructive surgeon Dr. Joshua Kaplan out of [place]. Follow-up labs including CAMILO, ESR/CRP, and comprehensive [...] Follows with psychiatric provider Clarice Lara with [facility]. Taking clonazepam 0.5 mg once daily [...] dysfunction. #Hyperkalemia: Patient reports she was at [facility] ED recently at which time her [...] reviewed. Dictation completed with the use of [employer] voice recognition software, prone to medical misidentifications [...] for 11/20/2024. #Recent fall: Patient seen at [facility] ED 11/02/2024 s/p fall [...] diffuse joint pain and fatigue. Follows with reconstructive surgeon Dr. Clark out of [place], records requested and not yet available for my review. 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 States this was diagnosed by Dr. Dubon out of [place], [place]. Taking methocarbamol 750 mg 3 times [...] reviewed. Dictation completed with the use of [employer] voice recognition software, prone to medical misidentifications [...] for 11/20/2024. #Recent fall: Patient seen at [facility] ED 11/02/2024 s/p fall [...] diffuse joint pain and fatigue. Follows with reconstructive surgeon Dr. Clark out of [place], records requested and not yet available for my review. 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 States this was diagnosed by Dr. Dubon out of [place], [place]. Taking methocarbamol 750 mg 3 times [...] reviewed. Dictation completed with the use of [employer] voice recognition software, prone to medical misidentifications [...] ER follow-up hospital follow-up. María presented to [facility] ED 04/19/2025 with chief complaint of [...] any pain medication. Previously followed with [facility] Dr. Trivedi who provided steroid injections. Historically [...] added opioid use. WIll refer to [facility] with goal of establishing safe pain management regimen. #RA: Follows with Joshua Kaplan MD out of [place]. Discussed possibility of chronic pain being related [...] reviewed. Dictation completed with the use of [employer] voice recognition software, prone to medical misidentifications [...] for 11/20/2024. #Recent fall: Patient seen at [facility] ED 11/02/2024 s/p fall [...] diffuse joint pain and fatigue. Follows with reconstructive surgeon Dr. Clark out of [place], records requested and not yet available for my review. 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 States this was diagnosed by Dr. uDbon out of [place], [place]. Taking methocarbamol 750 mg 3 times [...] reviewed. Dictation completed with the use of [employer] voice recognition software, prone to medical misidentifications [...] Tissue Head Neck 02/03/2025 Comp. Metabolic Panel [id number] 2023 Anti-Mi-2 Ab ([id number])-[id number] 12/13/2024 Anti-Ro (SS-A) Ab (RDL)-[id number] 5 Anti-La (SS-B) Ab (RDL)-[id number] 5 CREATINE KINASE AND CKMB 12/13/2024 Insurance Providers Payer Name Payer Address Payer Phone Subscriber Number Group Number Insured Name Patient Relationship to Insured Coverage Start Date Coverage End Date [facility] [address] [address] [place] [address] [id number] María Phillips Self - patient is [...]
--- OUTSIDE RECORDS SUMMARY | 2025-10-02 17:04 | XMS_ITS | Encounter Summary ---
Author Organization [facility] Address [address] [place] [address] Care Team Providers Care Ground Source Heat Pump Technician Name Role Phone Tasia Ash MD Primary Care Provider [phone] Jewel Manzano MD Unavailable [phone] Jalil Paulson MD Unavailable Unavailable Reason for Referral * Radiology Services (Routine) - Closed Specialty Diagnoses / Procedures Referred By Corine strange Referred To Contact Radiology Diagnoses Generalized abdominal pain Procedures CT ABD & PELVIS W/CONTRAST Rajan Sanders PA-C [address] [place] [address] [address] [place] [address] Referral ID Status Reason Start Date Expiration Date Visits Re quested Visits Authorized [id number] Closed 12/22/2023 03/24/2024 1 1 Encounter Details Date Type Department Care Team Description 12/22/2023 Telephone Gastroenterology - [place] [address] [facility] [address] [place] [address] Rajan Sanders PA-C Social History [...] * Telephone Encounter - Falguni Fuchs - 12/25/2023 9:05 AM EST Waiting [...] generalized documented in this encounter Care Teams Ground Source Heat Pump Technician Relationship Specialty Start Date End Date Tasia Ash MD [address] [place] [address] PCP - General Internal Medicine 04/27/23 Jewel Manzano MD [address] [address] ORTHOPEDIC SURGERY 07/14/23 Jalil Paulson MD [address] [address] Ophthalmology 11/09/23 06/02/24 [facility] Specialist Rheumatology 11/09/23 [facility] Specialist PAIN MANAGEMENT 12/18/23 [place] Specialist Rheumatology 06/03/24 [facility] neurology Specialist Neurology 06/03/24 [facility] 06/03/24 documented as of this encounter
--- OUTSIDE RECORDS SUMMARY | 2025-10-02 17:04 | XMS_ITS | Encounter Summary ---
Author Organization [facility] Address [address] [place] [address] Care Team Providers Care Senior Caregiver Name Role Phone Monty Allan MD Primary Care Provider [phone] [facility], Pcp Primary Care Provider UnavailTasia Barnhart MD Primary Care Provider [phone] Jewel Manzano MD Unavailable [phone] Jalil Paulson MD Unavailable Unavailable Encounter Details Date Type Department Care Team Description 12/03/2021 Orders Only Orthopedics-[address] [address] Jarvis Bermeo PA-C Social History Tobacco Use [...] on filedocumented in this encounter Care Teams Senior Caregiver Relationship Specialty Start Date End Date Monty Allan MD [address] [place] [address] PCP - General Internal Medicine 02/16/15 07/12/22 [facility] Pcp [address] [place] [address] PCP - General Internal Medicine 07/13/22 04/26/23 Tasia Ash MD [address] [place] [address] PCP - General Internal Medicine 04/27/23 Jewel Manzano MD [address] [address] ORTHOPEDIC SURGERY 07/14/23 Jalil Paulson MD [address] [address] Ophthalmology 11/09/23 06/02/24 [place] Specialist Rheumatology 07/14/23 11/08/23 [place] Specialist Rheumatology 11/09/23 [facility] Specialist PAIN MANAGEMENT 12/18/23 [place] Specialist Rheumatology 06/03/24 [facility] neurology Specialist Neurology 06/03/24 [facility] Specialist Optometry 06/03/24 documented as of this encounter
--- OUTSIDE RECORDS SUMMARY | 2025-10-02 17:04 | XMS_ITS | Encounter Summary ---
Author Organization [facility] Address [address] [place] [address] Care Team Providers Care Care Manager Cna Name Role Phone Monty Allan MD Primary Care Provider [phone] [facility], Pcp Primary [facility] Provider [facility] Tasia Rush MD Primary Care Provider [phone] Jewel Manzano MD Unavailable [phone] Jalil Paulson MD Unavailable Unavailable Reason for Visit * Reason Onset Date Comments URI Symptoms 06/14/2021 Encounter Details Date Type Department Care Team Description 06/14/2021 Telephone Adult Medicine - [place] [address] [place] [address] Monty Allan MD [address] [place] [address] URI Symptoms Social History Tobacco Use Types [...] on filedocumented in this encounter Care Teams Care Manager Cna Relationship Specialty Start Date End Date Monty Allan MD [address] [place] [address] PCP - General Internal Medicine 02/16/15 07/12/22 [facility], Pcp [address] [place], [place] PCP - General Internal Medicine 07/13/22 04/26/23 Tasia Ash MD [address] [place], [place] PCP - General Internal Medicine 04/27/23 Jewel Manzano MD [address] [place] [address] ORTHOPEDIC SURGERY 07/14/23 Jalil Paulson MD [address] [place] [address] Ophthalmology 11/09/23 06/02/24 [place] Specialist Rheumatology 07/14/23 11/08/23 [place] Specialist Rheumatology 11/09/23 [facility] Specialist PAIN MANAGEMENT 12/18/23 [place] Specialist Rheumatology 06/03/24 [facility] neurology Specialist Neurology 06/03/24 [facility] Specialist Optometry 06/03/24 documented as of this encounter
--- OUTSIDE RECORDS SUMMARY | 2025-10-02 17:04 | XMS_ITS | Encounter Summary ---
Author Organization [facility] Address [address] [place] [address] Care Team Providers Care Recovery Coordinator Name Role Phone Tasia Ash MD Primary Care Provider [phone] Jewel Manzano MD Unavailable [phone] Jalil Paulson MD Unavailable Unavailable Encounter Details Date Type Department Care Team Description 12/18/2023 Telephone Gastroenterology - [address] [place] [id number] Rajan Sanders PA-C Social History Tobacco Use [...] * Telephone Encounter - Falguni Fuchs - 12/20/2023 1:28 PM EST results are in your bin for review, thanks. * Telephone Encounter - Rajan Sanders PA-C - 12/18/2023 6:14 PM EST Patient had a colonoscopy at [facility] in August. Please obtain results. Thank you documented in this encounter Plan of Treatment Not on file documented as of this encounter Visit Diagnoses Not on filedocumented in this encounter Care Teams Recovery Coordinator Relationship Specialty Start Date End Date Tasia Ash MD [address] [place] [address] PCP - General Internal Medicine 04/27/23 Jewel Manzano MD [address] [address] ORTHOPEDIC SURGERY 07/14/23 Jalil Paulson MD [address] [address] Ophthalmology 11/09/23 06/02/24 [place] Specialist Rheumatology 11/09/23 [facility] Specialist PAIN MANAGEMENT 12/18/23 [place] Specialist Rheumatology 06/03/24 [facility] neurology Specialist Neurology 06/03/24 [facility] Opt[facility] 06/03/24 documented as of this encounter
--- OUTSIDE RECORDS SUMMARY | 2025-10-02 17:04 | XMS_ITS | Encounter Summary ---
Author Organization [facility] Address [address] [place] [address] Care Team Providers Care Bee Robber Name Role Phone Tasia Ash MD Primary Care Provider [phone] Jewel Manzano MD Unavailable [phone] Jalil Paulson MD Unavailable Unavailable Encounter Details Date Type Department Care Team Description 02/07/2024 Pt. Non Urgent Medic al Question Adult Medicine - [place] [address] [place] [address] Tasia Ash MD [address] [place] [address] Social History Tobacco Use Types Packs/Day Years [...] Telephone Encounter - Nichelle Hernandez M.A. - 02/07/2024 11:13 AM EDTFrom: María Phillips To: César Ash Sent: 02/07/2024 11:08 AM EDT Subject: Appointment I would like to schedule an appointment. I need a follow up for several er visits and my visit to the surgeon today, concerning the abdominal mass. Thank you documented in this encounter Plan of Treatment Not on file documented as of this encounter Visit Diagnoses Not on filedocumented in this encounter Care Teams Bee Robber Relationship Specialty Start Date End Date Tasia Ash MD [address] [place] [address] PCP - General Internal Medicine 04/27/23 Jewel Manzano MD 175 [facility] [address] [place] [address] ORTHOPEDIC SURGERY 07/14/23 Jalil Paulson MD [address] [address] Ophthalmology 11/09/23 06/02/24 [facility] Specialist Rheumatology 11/09/23 Trivedi Specialist PAIN MANAGEMENT 12/18/23 [facility] Specialist Rheumatology 06/03/24 [facility] neurology Specialist Neurology 06/03/24 [facility] Specialist Optometry 06/03/24 documented as of this encounter
--- OUTSIDE RECORDS SUMMARY | 2025-10-02 17:04 | XMS_ITS | Encounter Summary ---
Author Organization [facility] Address [address] [place] [address] Care Team Providers Care Stone Product Fabricator Name Role Phone Tasia Ahs MD Primary Care Provider +[phone] Jewel Manzano MD Unavailable [phone] Jalil Paulson MD Unavailable Unavailable Encounter Details Date Type Department Care Team Description 12/21/2023 Pt. Non Urgent Medic al Question Gastroenterology - [place] 175 [facility] 200 [place] [phone] Rajan Sanders PA-C Social History Tobacco Use [...] on filedocumented in this encounter Care Teams Stone Product Fabricator Relationship Specialty Start Date End Date Tasia Ash MD [address] [place] [address] PCP - General Internal Medicine 04/27/23 Jewel Manzano MD 175 [facility] [address] [place] [address] ORTHOPEDIC SURGERY 07/14/23 Jalil Paulson MD [address] [place] [address] [place] [address] Ophthalmology 11/09/23 06/02/24 Brimer Specialist Rheumatology 11/09/23 Trivedi Specialist PAIN MANAGEMENT 12/18/23 [facility] Specialist Rheumatology 06/03/24 [facility] neurology Specialist Neurology 06/03/24 Erica Specialist Optometry 06/03/24 documented as of this encounter
--- OUTSIDE RECORDS SUMMARY | 2025-10-02 17:04 | XMS_ITS | Encounter Summary ---
Author Organization [facility] Address [address] [place] [address] Care Team Providers Care Beet Topper Name Role Phone Monty Allan MD Primary Care Provider [phone] [facility], [facility], Pcp Primary Care Provider Tasia Stallings MD Primary Care Provider +[phone] Jewel Manzano MD Unavailable [phone] Jalil Paulson MD Unavailable Unavailable Reason for Visit * Reason Onset Date Comments URI Symptoms 08/24/2018 Encounter Details Date Type Department Care Team Description 08/24/2018 Telephone Adult Medicine - [place] [address] [place] [address] Monty Allan MD [address] [place] [address] URI Symptoms Social History Tobacco Use Types [...] Miscellaneous Notes * Telephone Encounter - Aaron AMANDA Pfeiffer - 08/24/2018 2:33 PM EDT Pt states that she is going on a cruise tomorrow morning , pt states that she has facial pressure and congestion , pt is asking for an antibiotic * Telephone Encounter - Shlomo Ye - 08/24/2018 1:30 PM EDT Symptoms patient is presenting: Pt would like rx for her cold sx pt is [place] on [place] tonight andunablee to come in If pain or injury related was it due to an accident at work or from a motor vehicle accident? NO If yes, gather 3rd libertarian insurance information Date of accident/Injury: How long has patient had these symptoms?: PCP: Vee Allan Payor: [facility] / Plan: PPO $25 [id number] / Product Type: PPO [id number] documented in this encounter Plan of Treatment Not on file documented as of this encounter Visit Diagnoses Not on filedocumented in this encounter Care Teams Beet Topper Relationship Specialty Start Date End Date Monty Allan MD [address] [place] [address] PCP - General Internal Medicine 02/16/15 07/12/22 [facility], [facility], [facility] [address] [place] [address] PCP - General Internal Medicine 07/13/22 04/26/23 Tasia Ash MD [address] [place] [address] PCP - General Internal Medicine 04/27/23 Jewel Manzano MD [address] [address] ORTHOPEDIC SURGERY 07/14/23 Jalil Paulson MD [address] [address] Ophthalmology 11/09/23 06/02/24 Gringer Specialist Rheumatology 07/14/23 11/08/23 Brimer Specialist Rheumatology 11/09/23 Trivedi Specialist PAIN MANAGEMENT 12/18/23 [place] Specialist Rheumatology 06/03/24 [facility] neurology Specialist Neurology 06/03/24 Erica Specialist Optometry 06/03/24 documented as of this encounter
--- OUTSIDE RECORDS SUMMARY | 2025-10-02 17:04 | XMS_ITS | Encounter Summary ---
Author Organization [facility] Address [address] [place] [address] Care Team Providers Care Hard Metals Engraver Hand Name Role Phone Tasia Ash MD Primary Care Provider [phone] Jewel Manzano MD Unavailable [phone] Jalil Paulson MD Unavailable Unavailable Encounter Details Date Type Department Care Team Description 01/18/2024 Pt. Non Urgent Medic al Question Gastroenterology - [place] 175 [facility] 200 [place] [phone] Rajan Sanders PA-C Social History Tobacco Use [...] on filedocumented in this encounter Care Teams Hard Metals Engraver Hand Relationship Specialty Start Date End Date Tasia Ash MD 230 [place] [address] PCP - General Internal Medicine 04/27/23 Jewel Manzano MD 175 [facility] [address] [place] [address] ORTHOPEDIC SURGERY 07/14/23 Jalil Paulson MD [address] [place] [address] [place] [address] Ophthalmology 11/09/23 06/02/24 Brimer Specialist Rheumatology 11/09/23 Trivedi Specialist PAIN MANAGEMENT 12/18/23 [facility] Specialist Rheumatology 06/03/24 [facility] neurology Specialist Neurology 06/03/24 Erica Specialist Optometry 06/03/24 documented as of this encounter
--- OUTSIDE RECORDS SUMMARY | 2025-10-02 17:04 | XMS_ITS | Encounter Summary ---
Author Organization [facility] Address [address] [place] [address] Care Team Providers Care Irrigation Specialist Name Role Phone Tasia Ash MD Primary Care Provider [phone] Jewel Manzano MD Unavailable [phone] Jalil Paulson MD Unavailable Unavailable Encounter Details Date Type Department Care Team Description 01/04/2024 Pt. Non Urgent Medic al Question Gastroenterology - [place] 175 [facility] 200 [place] [phone] Rajan Snaders PA-C Social History Tobacco Use Types Packs/Day [...] on filedocumented in this encounter Care Teams Irrigation Specialist Relationship Specialty Start Date End Date Tasia Ash MD [address] [place] [address] PCP - General Internal Medicine 04/27/23 Jewel Manzano MD 175 [facility] [address] [place] [address] ORTHOPEDIC SURGERY 07/14/23 Jalil Paulson MD [address] [place] [address] [place] [address] Ophthalmology 11/09/23 06/02/24 Brimer Specialist Rheumatology 11/09/23 Trivedi Specialist PAIN MANAGEMENT 12/18/23 [facility] Specialist Rheumatology 06/03/24 [facility] neurology Specialist Neurology 06/03/24 Erica Specialist Optometry 06/03/24 documented as of this encounter
--- OUTSIDE RECORDS SUMMARY | 2025-10-02 17:04 | XMS_ITS | Encounter Summary ---
Author Organization [facility] Address [address] [place] [address] Care Team Providers Care Keyboard Teacher Name Role Phone Tasia Ash MD Primary Care Provider [phone] Jewel Manzano MD Unavailable [phone] Jalil Paulson MD Unavailable Unavailable Encounter Details Date Type Department Care Team Description 02/05/2024 Orders Only Medical Records [address] [place] [address] Tammi Edwards PA-C Social History Tobacco Use [...] on filedocumented in this encounter Care Teams Keyboard Teacher Relationship Specialty Start Date End Date Tasia Ash MD [address] [place] [address] PCP - General Internal Medicine 04/27/23 Jewel Manzano MD 175 [facility] [address] [place] [address] ORTHOPEDIC SURGERY 07/14/23 Jalil Paulson MD [address] [address] Ophthalmology 11/09/23 06/02/24 [facility] Specialist Rheumatology 11/09/23 Trivedi Specialist PAIN MANAGEMENT 12/18/23 [facility] Specialist Rheumatology 06/03/24 [facility] neurology Specialist Neurology 06/03/24 [facility] 06/03/24 documented as of this encounter
--- OUTSIDE RECORDS SUMMARY | 2025-10-02 17:04 | XMS_ITS | Encounter Summary ---
Author Organization [facility] Address [address] [place] [address] Care Team Providers Care Control Valve Mechanic Name Role Phone Monty Allan MD Primary Care Provider [phone] [facility], Pcp Primary Care Provider [facility] a[facility]ia Ash MD Primary Care Provider [phone] Jewel Manzano MD Unavailable [phone] Jalil Paulson MD Unavailable Unavailable Encounter Details Date Type Department Care Team Description 12/22/2021 Orders Only [facility] 175 [facility] [address] [place] [address] Jewel Manzano MD 175 [facility] [address] [place] [address] Social History Tobacco Use Types Packs/Day Years [...] in this encounter Care Teams Control Valve Mechanic Relationship Specialty Start Date End Date Monty Allan MD [address] [place] [address] PCP - General Internal Medicine 02/16/15 07/12/22 [facility], [facility] [address] [place], [place] PCP - General Internal Medicine 07/13/22 04/26/23 Tasia Ash MD [address] [place] [address] PCP - General Internal Medicine 04/27/23 Jewel Manzano MD [address] [address] ORTHOPEDIC SURGERY 07/14/23 Jalil Paulson MD [address] [address] Ophthalmology 11/09/23 06/02/24 [facility] Specialist Rheumatology 07/14/23 11/08/23 Brimer Specialist Rheumatology 11/09/23 Trivedi Specialist PAIN MANAGEMENT 12/18/23 [facility] Specialist Rheumatology 06/03/24 [facility] neurology Specialist Neurology 06/03/24 [facility] Specialist Optometry 06/03/24 documented as of this encounter
--- OUTSIDE RECORDS SUMMARY | 2025-10-02 17:04 | XMS_ITS | Encounter Summary ---
Author Organization [facility] Address [address] [place] [address] Care Team Providers Care Content Developer Name Role Phone Tasia Ash MD Primary Care Provider [phone] Jewel Manzano MD Unavailable [phone] Jalil Paulson MD Unavailable Unavailable Encounter Details Date Type Department Care Team Description 01/26/2024 Pt. Non Urgent Medic al Question Adult Medicine - [place] [address] [place] [address] Tasia Ash MD [address] [place] [address] Social History Tobacco Use Types Packs/Day Years [...] Miscellaneous Notes * Telephone Encounter - Bessy ReyesPCliveNClive - 01/26/2024 12:25 PM EDT From: María Phillips To: César Ash Sent: 01/26/2024 12:15 PM EDT Subject: Follow up I am requesting a follow up appointment with Dr Barclay. I had an emergency room visit on 01/13. A cat scan was done for severe gastric pain. A Monday or any day after 3 would be preferred. Thank you documented in this encounter Plan of Treatment Not on file documented as of this encounter Visit Diagnoses Not on filedocumented in this encounter Care Teams Content Developer Relationship Specialty Start Date End Date Tasia Ash MD [address] [place] [address] PCP - General Internal Medicine 04/27/23 Jewel Manzano MD [address] [address] ORTHOPEDIC SURGERY 07/14/23 Jalil Paulson MD [address] [address] Ophthalmology 11/09/23 06/02/24 [facility] Specialist Rheumatology 11/09/23 [facility] Specialist PAIN MANAGEMENT 12/18/23 [place] Specialist Rheumatology 06/03/24 [facility] neurology Specialist Neurology 06/03/24 [facility] Specialist Optometry 06/03/24 documented as of this encounter
--- OUTSIDE RECORDS SUMMARY | 2025-10-02 17:04 | XMS_ITS | Continuity of Care Document ---
Author Organization [facility] [address] [facility] [address] [place] [address] Phone [phone] Care Team Providers Care Communication Instructor Name Role Phone Vee Queen M.D Care Team Informa tijolanta Wire Weaver Helper [phone] Problems Active Problems Provider Date Anxiety Eric [...] Medications SIG Qnty Indications Ordering Provider Date Qzyyzlqctwrtb2co Tablets 1 tabs by mouth at 11pm 1tabs Eric Shah M.D. 12/01/2022 [id number] Capsules Take 1 Capsule By Mouth 2 Times A Day Terence Olvera MD Jzwllzqoiximmvbtrp2n g TBPK follow package directions Unknown Vital Signs Date Vital Result Comment 12/01/2022 11:00am BP Systolic 130 mmHg BP Diastolic 70 mmHg Heart Rate 72 /min Height 64 inches 5'4 Weight 185.00 lb BMI (Body Mass Index) 31.8 kg/m2 Results Test Acquired Date Facility Test Result H/L Range N ote Cortisol 01/20/2023 [facility] Refer ce Lab Cortisol 0.6 g/dL 1 Cortisol 01/06/2023 [facility] Refer ce Lab Cortisol <pending> Cortisol 01/05/2023 [facility] Referen ce Lab Cortisol 5.3 g/dL 2 Free T4 01/05/2023 [facility] Referen ce Lab Free T4 0.98 ng/dL (0.70-1.80) TSH [facility] 0.52 uIU/mL (0.4-4.2) Free T4 01/04/2023 [facility] Referen ce Lab Free T4 <pending> TSH 01/04/2023 [facility] TSH <pending> 1 Reference Range: [...]
--- OUTSIDE RECORDS SUMMARY | 2025-10-02 17:04 | XMS_ITS | Encounter Summary ---
Author Organization [facility] Address [address] [place] [address] Care Team Providers Care Senior Engineering Specialist Name Role Phone Tasia Ash MD Primary Care Provider [phone] Jewel Manzano MD Unavailable [phone] Jalil Paulson MD Unavailable Unavailable Encounter Details Date Type Department Care Team Description 01/15/2024 Pt. Non Urgent Medic al Question Gastroenterology - [place] 175 [facility] 200 [place] [phone] Rajan Sanders PA-C Social History Tobacco Use [...] filedocumented in this encounter Care Teams Senior Engineering Specialist Relationship Specialty Start Date End Date Tasia Ash MD [address] [place] [address] PCP - General Internal Medicine 04/27/23 Jewel Manzano MD 175 [facility] [address] [place] [address] ORTHOPEDIC SURGERY 07/14/23 Jalil Paulson MD [address] [place] [address] [place] [address] Ophthalmology 11/09/23 06/02/24 Brimer Specialist Rheumatology 11/09/23 Trivedi Specialist PAIN MANAGEMENT 12/18/23 [facility] Specialist Rheumatology 06/03/24 [facility] neurology Specialist Neurology 06/03/24 Erica Specialist Optometry 06/03/24 documented as of this encounter
--- OUTSIDE RECORDS SUMMARY | 2025-10-02 17:04 | XMS_ITS | Encounter Summary ---
Author Organization [facility] Address [address] [place] [address] Care Team Providers Care Vocational Adviser Name Role Phone Monty Allan MD Primary Care Provider [phone] [facility], Pcp Primary Care Provider [facility] MD Primary Care Provider [phone] Jewel Manzano MD Unavailable [phone] Jalil Paulson MD Unavailable Unavailable Encounter Details Date Type Department Care Team Description 06/24/2021 Supervisor Of Officials Report Medical Records [address] [place] [address] Chintan Condon MD Social History Tobacco Use [...] on filedocumented in this encounter Care Teams Vocational Adviser Relationship Specialty Start Date End Date Monty Allan MD [address] [place] [address] PCP - General Internal Medicine 02/16/15 07/12/22 [facility] Pcp [address] [place], [place] PCP - General Internal Medicine 07/13/22 04/26/23 Tasia Ash MD [address] [place] [address] PCP - General Internal Medicine 04/27/23 Jewel Manzano MD [address] [address] ORTHOPEDIC SURGERY 07/14/23 Jalil Paulson MD [address] [address] Ophthalmology 11/09/23 06/02/24 [facility] Specialist Rheumatology 07/14/23 11/08/23 Brimer Specialist Rheumatology 11/09/23 Trivedi Specialist PAIN MANAGEMENT 12/18/23 Tall[place] Specialist Rheumatology 06/03/24 [facility] neurology Specialist Neurology 06/03/24 [place] Specialist Optometry 06/03/24 documented as of this encounter
--- OUTSIDE RECORDS SUMMARY | 2025-10-02 17:04 | XMS_ITS | Clinical Summary ---
Author Organization [facility] Address [address] [place] [address] Care Team Providers Care Snuff Grinder Name Role Phone Vee Allan MD [...] age to complete this topic Care Teams Snuff Grinder Relationship Specialty Start Date End Date Vee Allan MD PCP - General Internal Medicine 12/05/19
--- OUTSIDE RECORDS SUMMARY | 2025-10-02 17:04 | XMS_ITS | Encounter Summary ---
Author Organization [facility] Address [address] [place] [address] Care Team Providers Care Janitor And Cleaner Name Role Phone Monty Allan MD Primary Care Provider [phone] [facility], Pcp Primary Care Provider UnavailTasia Barnhart MD Primary Care Provider + [phone] Jewel Manzano MD Unavailable [phone] Jalil Paulson MD Unavailable Unavailable Reason for Visit * Reason Onset Date Comments TEST RESULTS 01/17/2019 Encounter Details Date Type Department Care Team Description 01/17/[address] [address] Kyle Barahona PA-C TEST RESULTS Social History [...] on filedocumented in this encounter Care Teams Janitor And Cleaner Relationship Specialty Start Date End Date Monty Allan MD [address] [place] [address] PCP - General Internal Medicine 02/16/15 07/12/22 [facility] [address] [place], [place] PCP - General Internal Medicine 07/13/22 04/26/23 Tasia Ash MD [address] [place] [address] PCP - General Internal Medicine 04/27/23 Jewel Manzano MD [address] [address] ORTHOPEDIC SURGERY 07/14/23 Jalil Paulson MD [address] [address] Ophthalmology 11/09/23 06/02/24 [facility] Specialist Rheumatology 07/14/23 11/08/23 Brimer Specialist Rheumatology 11/09/23 Trivedi Specialist PAIN MANAGEMENT 12/18/23 [place] Specialist Rheumatology 06/03/24 [facility] neurology Specialist Neurology 06/03/24 [facility] Specialist Optometry 06/03/24 documented as of this encounter
--- OUTSIDE RECORDS SUMMARY | 2025-10-02 17:04 | XMS_ITS | Encounter Summary ---
Author Organization [facility] Address [address] [place] [address] Care Team Providers Care Machine Ceramic Coater Name Role Phone Tasia Ash MD Primary Care Provider + [phone] Jewel Manzano MD Unavailable [phone] Jalil Paulson MD Unavailable Unavailable Encounter Details Date Type Department Care Team Description 12/20/2023 Telephone Gastroenterology - [address] [place] [phone] Rajan Sanders PA-C Social History Tobacco Use [...] Telephone Encounter - Rajan Sanders PA-C - 12/20/2023 7:44 AM EST Please let patient know that we will need to have her perform a breath test first before the endoscopy but that can be scheduled as well after she performs a breath test. Please let her know that sheneeds to be off of the omeprazole for 2 weeks. She can take other medicine such as the Mylanta thatwill help with her symptoms and she can perform the breath test and then once I have those results I can schedule her for the endoscopy. documented in this encounter Plan of Treatment Not on file documented as of this encounter Results * CHG HPYLORI BREATH ANAL UREASE ACT NON-RADACT ISTOPE (01/01/2024 9:56 AM EST) BREATHTEK NEGATIVE NEGATIVE 01/01/2024 2:40 PM EST [facility] 01/01/2024 9:56 AM EST 01/01/2024 9:57 AM EST Narrative [facility] - 01/01/2024 2:40 PM EST Release to patient->Immediate Rajan Sanders PA-C LAB [facility] documented in this encounter Visit Diagnoses Diagnosis Epigastric discomfort- Primary Abdominal pain, epigastric documented in this encounter Care Teams Machine Ceramic Coater Relationship Specialty Start Date End Date Tasia Ash MD [address] [place] [address] PCP - General Internal Medicine 04/27/23 Jewel Manzano MD [address] [address] ORTHOPEDIC SURGERY 07/14/23 Jalil Paulson MD [address] [address] Ophthalmology 11/09/23 06/02/24 Brimer Specialist Rheumatology 11/09/23 Trivedi Specialist PAIN MANAGEMENT 12/18/23 [facility] Specialist Rheumatology 06/03/24 [facility] neurology Specialist Neurology 06/03/24 [facility] Specialist Optometry 06/03/24 documented as of this encounter
--- OUTSIDE RECORDS SUMMARY | 2025-10-02 17:05 | XMS_ITS | Encounter Summary ---
Author Organization [facility] Address [address] [place] [address] Care Team Providers Care Wastewater Project Engineer Name Role Phone Monty Allan MD Primary Care Provider [phone] [facility], Pcp Primary Care Provider UnavailTasia Barnhart MD Primary Care Provider [phone] Jewel Manzano MD Unavailable [phone] Jalil Paulson MD Unavailable Unavailable Encounter Details Date Type Department Care Team Description 07/30/2018 Orders Only General Surgery - [address] [place] [address] Terence Keenan MD [address] [place] [address] Social History Tobacco Use Types Packs/Day Years [...] on filedocumented in this encounter Care Teams Wastewater Project Engineer Relationship Specialty Start Date End Date Monty Allan MD [address] [place] [address] PCP - General Internal Medicine 02/16/15 07/12/22 [facility] Pcp [address] [place] [address] PCP - General Internal Medicine 07/13/22 04/26/23 Tasia Ash MD [address] [place] [address] PCP - General Internal Medicine 04/27/23 Jewel Manzano MD 175 [facility] [address] [place] [address] ORTHOPEDIC SURGERY 07/14/23 Jalil Paulson MD [address] [address] Ophthalmology 11/09/23 06/02/24 [facility] Specialist Rheumatology 07/14/23 11/08/23 [facility]imer Specialist Rheumatology 11/09/23 Trivedi Specialist PAIN MANAGEMENT 12/18/23 [facility] Specialist Rheumatology 06/03/24 [facility] neurology Specialist Neurology 06/03/24 [facility] Specialist Optometry 06/03/24 documented as of this encounter
--- OUTSIDE RECORDS SUMMARY | 2025-10-02 17:05 | XMS_ITS | Clinical Summary ---
Author Organization [facility] Address [address] [place] [address] Phone Care Team Providers Care [employer]ist Name Role Phone Araceli Augustin Primary Care [...] back and legs. The lumbar CT from [facility] show degenerative disc disease but not stenosis. Her description of paresthesias and leg shaking raise concerns for stenosis. Her workup at the [facility] ER did not correlate with cauda equina syndrome. She is now awaiting a lumbar spine MRI at [facility]. I be happy to review that once [...] this, is currently seeing 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 [facility], had injection in the right [...] Other specified anxiety disorders 02/09/2021 Rheumatoid arthritis ([facility] V24, [facility] V28) 12/25/2020 Carpal tunnel syndrome [...] Department Care Team Description 09/24/[address] [facility] [address] [facility] 175 [facility] 200 [place] [phone] Melba Bunn MD 09/15/2025 3:45 PM EST Office Visit Orthopedic Surgery [facility] 175 [facility] 140 [place] [phone] Bessy Mesa MD 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 (CMS/HCC V24, CMS/HCC V28) (Primary Dx) 09/15/[address] [facility] 250 175 [facility] 250 [place] [phone] Bessy Mesa MD 09/11/2025 12:30 PM EST Treatment [facility] [address] [phone] Nichelle Milian, OT 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) 09/11/[address] [facility] 250 175 [facility] 250 [place] [phone] Bessy Mesa MD 09/04/2025 12:30 PM EDT Treatment [facility] [address] [phone] Shanell Bowen COTA/Ulices 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) 08/28/2025 1:30 PM EDT Treatment [facility] [address] [phone] Nichelle Milian, OT 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) 08/21/2025 12:00 PM EDT Evaluation [facility] [address] [phone] Nichelle Milian, OT 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) 08/14/2025 3:30 PM EDT Office Visit Orthopedic Surgery [facility] [address] [facility] [address] [place] [address] Von Mcclure MD Knee pain (Primary Dx); Post-traumatic osteoarthritis of left knee; Primary osteoarthritis of right knee 08/13/2025 Telephone Gastroenterology - [place] 175 [facility] [address] [facility] [address] [place] [phone] Gia Lance NP 08/12/2025 3:45 PM EDT Office Visit Orthopedic Surgery [facility] [address] [facility] [address] [place] [address] Bessy Mesa MD Wrist pain (Primary Dx); Osteochondrosis of lunate of right wrist; Surgery follow-up 08/06/2025 Results Follow-Up Gastroenterology [facility] [address] [facility] [address] [facility] [address] [place] [address] Gia Lance NP 08/05/[address] [facility] [address] [facility] [address] [phone] Von Mcclure MD 08/04/[address] [facility] [address] [facility] [address] [phone] Bessy Mesa MD 07/29/2025 3:45 PM EDT Office Visit Orthopedic Surgery [facility] [address] [facility] [address] [facility] [address] [place] [address] Bessy Mesa MD Osteochondrosis of lunate of right wrist (Primary Dx); Surgery follow-up 07/29/[address] [facility] [address] [facility] [address] [phone] Von Mcclure MD 07/28/2025 2:40 PM EDT Office Visit Gastroenterology [facility] 175 [facility] [address] [facility] [address] [place] [address] Gia Lance NP Erosive gastropathy (Primary Dx); Abdominal pain, chronic, right upper quadrant; History of Helicobacter pylori infection; Esophageal dysmotility; Tobacco use disorder 07/24/2025 8:40 AM EDT Consult Endocrinology - [address] [phone] Marian Turner MD Hypothyroidism (acquired) (Primary Dx); Hyperthyroidism 07/24/[address] [facility] 175 [facility] 140 [place] [phone] Bessy Mesa MD 07/23/2025 3:30 PM EDT Office Visit Orthopedic Surgery [facility] 175 [facility] 140 [place] [phone] Nichelle Archibald PA Surgery follow-up (Primary Dx) 07/23/[address] [facility] 250 [address] [facility] 250 [place] [phone] Jacquelyn Sow 07/16/2025 1:10 PM EDT Anesthesia Event [facility] Main OR [address] [place] [phone] Magda Siegel MD Chang, Ling, CRNA 07/16/2025 12:30 PM EDT - 07/16/2025 2:00 PM EDT Surgery [facility] Main OR [address] [place] [phone] Bessy Mesa MD core decompression right distal radius [58109 (CPT )] 07/16/2025 10:33 AM EDT - 07/16/2025 4:05 PM EDT Hospital Encounter [facility] Main OR [address] [place] [phone] Bessy Mesa MD 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 (CMS/HCC V24, CMS/HCC V28) Discharge Disposition: Home or Self Care 07/16/2025 7:20 AM EDT - 07/16/2025 11:59 PM EDT Hospital Encounter [facility] Xray [address] [place] [address] Pain Discharge Disposition: Home or Self Care 07/16/2025 Telephone Gastroenterology - [place] 175 [facility] 175 [facility] 200 [place] [address] Gia Lance NP 07/15/2025 Telephone Orthopedic Surgery - [place] 250 175 [facility] 250 [place] [phone] Bessy Mesa MD 07/08/2025 6:02 PM EDT - 07/08/2025 10:10 PM EDT Emergency [facility] Emergency [address] [place] [phone] Jalil Steven MD Goebel, Mathew, MD Spinal stenosis of lumbar region, unspecified whether neurogenic claudication present (Primary Dx) Discharge Disposition: Home or Self Care 07/08/2025 3:15 PM EDT Consult Orthopedic Surgery - [place] 175 [facility] 140 [place] [address] Bessy Mesa MD Osteochondrosis of lunate of left wrist (Primary Dx) from Last 3 Months Immunizations Immunization Administration Dates Next Due Hepatitis B (Ntqvyvp-F-Mpapu , Recombivax HB-Adult) 19yo and older 02/21/2022,01/17/2022 [...] tissue CARPAL TUNNEL RELEASE 01/20/2020 Right PROCEDURE: [place] NEUROPLASTY &/TRANSPOS MEDIAN NRV CARPAL TUNNE COLONOSCOPY OTHER SURGICAL HISTORY 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 [facility] WRIST SURGERY 11/06/2021 - 11/05/2022 [...] eventual strength) 09/11 Ongoing 2. Dominant R surface supply breathing apparatus strength at least 35# (vs 20initial, vs [...] LMA(NO CHARGE) Routine 07/16/2025 1:23 PM EDT [place] OSTEOTOMY RADIUS DISTAL THIRD 07/16/2025 1:09 PM [...] Routine 10/28/2024 2:36 PM EST Atrophic arthritis ([facility] V24, [facility] V28) Routine general medical examination at a [...] detected Not detected 08/05/2025 2:52 PM EDT [facility] Comment: This test was performed [...] Food and Drug Administration. Test performed at [facility], [address] , [place] [address] Krystina Austin MD, PhD - Thinner Sprayer Stool Rectum structure / Unknown Non-blood Collection / Unknown 07/30/2025 9:58 AM EDT 07/30/2025 9:58 AM EDT Gia Lance NP LAB BODY FLUIDS AND STOOLS ROD ESCALANTE Final Result [facility] [address] [place] [place] [address] * Thyroid stimulating hormone with reflex to free t4 and free t3 (07/24/2025 9:32 AM EDT) [facility] Signature TSH 1.20 0.40 - 4.00 mcIU/mL LAB CHEMISTRY METHOD 07/24/2025 12:39 PM EDT [facility] Blood Venous blood specimen / Unknown Venipuncture / Unknown 07/24/2025 9:32 AM EDT 07/24/2025 9:32 AM EDT Marian Turner MD LAB BLOOD ORDERABLES Final Res ult [facility] [address] [place] [address], * Thyroid stimulating immunoglobulin (07/24/2025 9:32 AM EDT) Thyroid Stimulating Immunoglobulin <0.10 <0.10 IU/L 07/28/2025 7:54 PM EDT [facility] Comment: Thyroid stimulating immunoglobulins (TSI) [...] [facility], [address] [place] [address] Krystina Austin MD, PhD - Thinner Sprayer Blood Venous blood specimen / Unknown Venipuncture / Unknown 07/24/2025 9:32 AM EDT 07/24/2025 9:32 AM EDT Marian Turner MD LAB BLOOD ORDERABLES Final Res ult [facility] [address] [place] [address] * Triiodothyronine free (07/24/2025 9:32 AM EDT) T3, Free 316 230 - 420 pcg/dL LAB CHEMISTRY METHOD 07/24/2025 12:38 PM EDT [facility] Blood Venous blood specimen / Unknown Venipuncture / Unknown 07/24/2025 9:32 AM EDT 07/24/2025 9:32 AM EDT Marian Turner MD LAB BLOOD ORDERABLES Final Res ult Performing Organization Address City/[facility]/ZIP Co de Phone Number [facility] [address] [place] [address], * Thyroxine free (07/24/2025 9:32 AM EDT) Free T4 1.16 0.70 - 1.80 ng/dL LAB CHEMISTRY METHOD 07/24/2025 12:38 PM EDT [facility] Blood Venous blood specimen / Unknown Venipuncture / Unknown 07/24/2025 9:32 AM EDT 07/24/2025 9:32 AM EDT [facility] ENRIQUE LAB BLOOD ORDERABLES Final Res ult Performing Organization Address [facility]/ZIP Co de Phone Number [facility] [address] [place] [address], * Tissue exam (07/16/2025 1:50 PM EDT) Final Diagnosis Bone, Right, Distal Radius-decomp ression: -FRAGMENTS OF TRABECULAR BONE WITH NO SPECIFIC PATHOLOGIC CHANGE 07/18/2025 12:03 PM EDT [facility] Comment Intact specimen with articular cartilage is preferred specimen for evaluating avascular necrosis. 07/18/2025 12:03 PM EDT [facility] Gross Description A. Wrist, Right, Distal Radius: Labeled right dis wrist R . Received in formalin is a 1.4 x 0.8 x 0.2 cm aggregate of hard, rocha-red bone fragments which are wrapped in paper and submitted in toto in one cassette, multiple pieces, following decalcificati on. TS 07/18/2025 12:03 PM EDT [facility] Disclaimer Unless otherwise specified, all tissue is 10% NB formalin fixed and paraffin embedded. 07/18/2025 12:03 PM EDT [facility] Bone Structure of right wrist region / Unknown 07/16/2025 1:50 PM EDT 07/16/2025 3:19 PM EDT Bessy Mesa MD LAB PATHOLOGY ORDERABLES Nataliia vasquez Result [facility] [address] [place] [address], * (ABNORMAL) Culture anaerobic with gram stain (07/16/2025 1:40 PM EDT) Culture, Anaerobic No Growth of Anaerobes. 07/24/2025 8:[facility] Culture, Anaerobic Staphylococcus warneri(A) ABBEY 07/24/2025 8:51 AM EDT [facility] Comment: SPARSE Beta-lactamase negative The organism value for this result has been updated. These results have been appended to the previously preliminary verified report. Edited result: Previously reported as Gram Positive Cocci on 07/20/2025 at 0832 EDT. Culture, Anaerobic Streptococcus viridans group(A) ABBEY 07/24/2025 8:51 AM EDT [facility] Comment: SPARSE Susceptibility testing [...] species,not anthracis(A) ABBEY 07/24/2025 8:51 AM EDT [facility] Comment: SPARSE The organism value for this result has been updated. These results have been appended to the previously preliminary verified report. Gram Stain Result Refer to Aerobic culture for gram stain results. 07/24/2025 8:51 AM [facility] Swab Structure of right wrist [...] OR DERABLES Final Result Performing Organization Address [facility] de Phone Number [facility] [address] [place] [address], [place] [phone] * Culture wound deep (07/16/2025 1:40 PM EDT) Culture, Wound No growth at 3 days 07/19/2025 10:14 AM EDT [facility] Gram Stain Result No polymorphonuclear leukocytes, No epithelial cells, and No organisms noted 07/19/2025 10:14 AM EDT [facility] Swab Structure of right wrist region / Unknown 07/16/2025 1:40 PM EDT 07/16/2025 2:37 PM EDT us Bessy Mesa MD LAB MICROBIOLOGY - GENERAL OR DERABLES Final Result Performing Organization Address [facility] Co de Phone Number [facility] [address] [place] [address], [place] [phone] * TH AN LMA(NO CHARGE) (07/16/2025 1:23 [...] spinal canal stenosis T12-L1 through L4-L5, and gkwt-km-vpiarubw bilateral L4-L5 neural foraminal stenosis. 2. Unremarkable [...] spinal canal stenosis from T12-L1 through L4-L5. Qrbc-eb-[id number] bilateral L4-L5 neural foraminal stenosis. Unremarkable appearance [...] spinal canal stenosis from T12-L1 through L4-L5. Wzpo-rg-zwawhhae bilateral L4-L5 neural foraminal stenosis. Unremarkable appearance of the conus medullaris and cauda equina. Paraspinous musculature intact. IMPRESSION: 1. Multilevel degenerative changes of the lumbar spine as described contributing to mild multifocal spinal canal stenosis T12-L1 through L4-L5, and hzab-cu-khvzmhro bilateral L4-L5 neural foraminal stenosis. 2. Unremarkable appearance of the conus medullaris and cauda equina. This document has been electronically signed by: James Sheth MD on 07/08/2025 21:13:43 Jalil Steven MD [facility] MRI PROCEDURES Final Result * (ABNORMAL) CBC auto differential (07/08/2025 7:06 PM EDT) WBC 7.5 4.8 - 10.8 K/mcL LAB HEMETOLOGY METHOD 07/08/2025 7:22 PM EDT [facility] RBC 4.20 3.80 - 4.80 M/mcL LAB HEMETOLOGY METHOD 07/08/2025 7:22 PM EDT [facility] Hemoglobin 13.8 11.5 - 16.0 g/dL LAB HEMETOLOGY METHOD 07/08/2025 7:22 PM EDT [facility] Hematocrit 40.7 35.0 - 47.0 % LAB HEMETOLOGY METHOD 07/08/2025 7:22 PM EDT [facility] MCV 97.4 79.0 - 98.0 FL LAB HEMETOLOGY METHOD 07/08/2025 7:22 PM [facility] MCH 33.0(H) 27.0 - 32.0 pcg LAB HEMETOLOGY METHOD 07/08/2025 7:22 PM [facility] MCHC 33.9 32.0 - 37.0 g/dL LAB HEMETOLOGY METHOD 07/08/2025 7:22 PM [facility] RDW 12.7 11.0 - 15.0 % LAB HEMETOLOGY METHOD 07/08/2025 7:22 PM [facility] Platelets 311 130 - 400 K/mcL LAB HEMETOLOGY METHOD 07/08/2025 7:22 PM [facility] MPV 9.3 7.0 - 11.0 FL LAB HEMETOLOGY METHOD 07/08/2025 7:22 PM [facility] NRBC 0.0 <1.0 % LAB HEMETOLOGY METHOD 07/08/2025 7:22 PM [facility] NRBC Absolute 0.00 <0.10 K/mcL LAB HEMETOLOGY METHOD 07/08/2025 7:22 PM [facility] Neutrophils Relative 49.3 % LAB HEMETOLOGY METHOD 07/08/2025 7:22 PM [facility] Lymphocytes Relative 39.4 % LAB HEMETOLOGY METHOD 07/08/2025 7:22 PM [facility] Monocytes Relative 7.6 % LAB HEMETOLOGY METHOD 07/08/2025 7:22 PM [facility] Eosinophils Relative 2.9 % LAB HEMETOLOGY METHOD 07/08/2025 7:22 PM [facility] Basophils Relative 0.5 % LAB HEMETOLOGY METHOD 07/08/2025 7:22 PM EDT [facility] Immature Granulocytes Relative 0.3 % LAB HEMETOLOGY METHOD 07/08/2025 7:22 PM EDT [facility] Neutrophils Absolute 3.68 1.50 - 7.00 K/mcL LAB HEMETOLOGY METHOD 07/08/2025 7:22 PM EDT [facility] Lymphocytes Absolute 2.94 1.00 - 5.00 K/mcL LAB HEMETOLOGY METHOD 07/08/2025 7:22 PM EDT [facility] Monocytes Absolute 0.57 0.20 - 1.00 K/mcL LAB HEMETOLOGY METHOD 07/08/2025 7:22 PM EDT [facility] Eosinophils Absolute 0.22 0.00 - 0.50 K/mcL LAB HEMETOLOGY METHOD 07/08/2025 7:22 PM EDT [facility] Basophils Absolute 0.04 0.00 - 0.20 K/mcL LAB HEMETOLOGY METHOD 07/08/2025 7:22 PM EDT [facility] Immature Granulocytes Absolute 0.02 0.00 - 0.03 K/mcL LAB HEMETOLOGY METHOD 07/08/2025 7:22 PM EDT [facility] Blood Venous blood specimen / Unknown Venipuncture / Unknown 07/08/2025 7:06 PM EDT 07/08/2025 7:15 PM EDT us Juan F Doshi MD LAB BLOOD ORDERABLES Final Result [facility] [address] [place] [address], * Lipase (07/08/2025 7:06 PM EDT) Lipase 19 13 - 75 unit/L LAB CHEMISTRY METHOD 07/08/2025 7:54 PM EDT [facility] Blood Venous blood specimen / Unknown Venipuncture / Unknown 07/08/2025 7:06 PM EDT 07/08/2025 7:15 PM EDT Juan F Doshi MD LAB BLOOD ORDERABLES Final Result [facility] [address] [place] [address], * Comprehensive metabolic panel (07/08/2025 7:06 PM EDT) Sodium 140 133 - 145 mmol/L LAB CHEMISTRY METHOD 07/08/2025 7:54 PM [facility] Potassium 4.1 3.5 - 5.5 mmol/L LAB CHEMISTRY METHOD 07/08/2025 7:54 PM [facility] Chloride 104 96 - 110 mmol/L LAB CHEMISTRY METHOD 07/08/2025 7:54 PM [facility] CO2 29 21 - 32 mmol/L LAB CHEMISTRY METHOD 07/08/2025 7:54 PM [facility] Anion Gap 7 3 - 11 LAB CHEMISTRY METHOD 07/08/2025 7:54 PM [facility] Glucose 81 70 - 100 mg/dL LAB CHEMISTRY METHOD 07/08/2025 7:54 PM [facility] BUN 8 5 - 25 mg/dL LAB CHEMISTRY METHOD 07/08/2025 7:54 PM [facility] Creatinine 0.81 0.50 - 1.10 mg/dL LAB CHEMISTRY METHOD 07/08/2025 7:54 PM [facility] eGFR 84 >=60 mL/min/1. 73m2 LAB CHEMISTRY METHOD 07/08/2025 7:54 PM [facility] Comment:Calculation based on the Chronic Kidney Disease Epidemiology Collaboration (CKD-EPI) equation refit without adjustment for race. BUN/Creatinine Ratio 9.9 LAB CHEMISTRY METHOD 07/08/2025 7:54 PM EDT [facility] Calcium 9.8 8.5 - 10.5 mg/dL LAB CHEMISTRY METHOD 07/08/2025 7:54 PM EDT [facility] AST (SGOT) 23 10 - 42 unit/L LAB CHEMISTRY METHOD 07/08/2025 7:54 PM EDT [facility] ALT (SGPT) 29 10 - 60 unit/L LAB CHEMISTRY METHOD 07/08/2025 7:54 PM EDT [facility] Alkaline Phosphatase 102 42 - 121 unit/L LAB CHEMISTRY METHOD 07/08/2025 7:54 PM EDT [facility] Total Protein 6.8 6.0 - 8.0 g/dL LAB CHEMISTRY METHOD 07/08/2025 7:54 PM [facility] Albumin 4.0 3.2 - 5.0 g/dL LAB CHEMISTRY METHOD 07/08/2025 7:54 PM T [facility] Total Bilirubin 0.5 0.0 - 1.4 mg/dL LAB CHEMISTRY METHOD 07/08/2025 7:54 PM EDT [facility] Blood Venous blood specimen / Unknown Venipuncture / Unknown 07/08/2025 7:06 PM EDT 07/08/2025 7:15 PM EDT us Juan F Doshi MD LAB BLOOD ORDERABLES Final Result [facility] [address] [place] [address], * [place] [facility] [place] [facility]OSCOPY (06/05/2025 12:23 PM EDT) [...] previously scheduled. Narrative 06/05/2025 12:27 PM EDT [facility] GI Patient Name: María Phillips [...] verified by the physician, the nurse, the product safety lead and the chiller technician in the pre-procedure area in the [...] not prolapse). Procedure Code(s): --- Professional --- 71916, Colonoscopy, flexible; with biopsy, single or multiple Diagnosis Code(s): --- Professional --- R19.7, Diarrhea, unspecified CPT copyright 2020 [employer]. All rights reserved. The codes documented in this report are preliminary and upon etl bi developer review may be revised to meet current compliance requirements. Melba Bunn MD 06/05/2025 12:27:19 PM This report has been signed electronically.Melba Bunn MD Number of Addenda: 0 Note Initiated On: 06/05/2025 11:57 AM Scope Withdrawal Time: 0 hours 6 minutes 22 seconds Scope In: 12:10:33 PM Scope Out: 12:23:27 PM Endoscopy Department at [facility] - [address] [place] [phone] Procedure Note Melba Bunn MD - 06/05/2025 [facility] GI Patient Name: María Phillips [...] the physician, the nurse, theanesthetist and the chiller technician in the pre-procedure area in the [...] not prolapse). Procedure Code(s): --- Professional --- 15117, Colonoscopy, flexible; with biopsy, singleor multiple Diagnosis Code(s): --- Professional --- R19.7, Diarrhea, unspecified CPT copyright 2020 [employer]. All rights reserved. The codes documented in this report are preliminary and upon etl bi developer reviewmay be revised to meet current compliance requirements. Melba Bunn MD 06/05/2025 12:27:19 PM This report has been signed electronically.Melba Bunn MD Number of Addenda: 0 Note Initiated On: 06/05/2025 11:57 AM Scope Withdrawal Time: 0 hours 6 minutes 22 seconds Scope In: 12:10:33 PM Scope Out: 12:23:27 PM Endoscopy Department at [facility] - [address] [place] [phone] IMPRESSION: - The examined portion of the [...] year. Mammo Location: [facility], [address] [place] [address], [address], . -------- FINAL REPORT -------- Dictated By: Stefani Zamora Dictated Date: 02/06/2025 09:43 ET Assigned Physician: Stefani Zamora Reviewed and Electronically Signed By: Stefani Zamora Signed Date: 02/06/2025 09:45 ET Workstation ID: [id number] Transcribed By: Self Edit Transcribed Date: 02/06/2025 [...] year. Mammo Location: [facility], [address] [place] [address], [facility], . -------- FINAL REPORT -------- Dictated By: Stefani Zamora Dictated Date: 02/06/2025 09:43 ET Assigned Physician: Stefani Zamora Reviewed and Electronically Signed By: Stefani Zamora Signed Date: 02/06/2025 09:45 ET Workstation ID: [id number] Transcribed By: Self Edit Transcribed Date: 02/06/2025 09:43 ET Araceli BOOTHE IMG BI PROCEDURES Final Result * Lipid panel with reflex to direct LDL (10/28/2024 2:36 PM EST) Cholesterol 196 0 - 200 mg/dL LAB CHEMISTRY METHOD 10/28/2024 4:17 PM EST [facility] Triglycerides 51 0 - 150 mg/dL LAB CHEMISTRY METHOD 10/28/2024 4:17 PM [facility] HDL 111 >=40 mg/dL LAB CHEMISTRY METHOD 10/28/2024 4:17 PM [facility] LDL Calculated 75 0 - 100 mg/dL LAB CHEMISTRY METHOD 10/28/2024 4:17 PM [facility] VLDL Cholesterol Corby 10.2 mg/dL LAB CHEMISTRY METHOD 10/28/2024 4:17 PM [facility] Non HDL Chol. (LDL+VLDL) 85 <145 mg/dL LAB CHEMISTRY METHOD 10/28/2024 4:17 PM [facility] Chol/HDL Ratio 1.8 0.0 - 4.4 LAB CHEMISTRY METHOD 10/28/2024 4:17 PM [facility] Blood Venous blood specimen / Unknown Venipuncture / Unknown 10/28/2024 2:36 PM EST 10/28/2024 3:06 PM EST Araceli BOOTHE LAB BLOOD ORDERABLES Fin al Result [facility] [address] [place] [address], * HIV Screening (05/20/2024) [facility] HIV Screening abstracted [facility] Provider HEALTH MAINTENANCE Final Result * Hepatitis C Screening (05/20/2024) [facility] Hepatitis C Screening abstracted [facility] Provider HEALTH MAINTENANCE Final Result * Cervical Cancer Screening: HPV (07/20/2023) [facility] Cervical Cancer Screening: HPV no interpreta tion,abstr acted [facility] Rickey ENRIQUE HEALTH MAINTENANCE Final Result from Last 3 Months or Most Recently Relevant to Health Maintenance Insurance [facility] CAMILA QUINONEZ [id number] Advance Directives * Full Code - Default [...] currently active code status orders. Care Teams Crown Ceramist Relationship Specialty Start Date End Date Araceli Augustin PA [address] [place] [phone] PCP - General 11/20/24
--- OUTSIDE RECORDS SUMMARY | 2025-10-02 17:05 | XMS_ITS | Encounter Summary ---
Author Organization [facility] Address [address] [place] [address] Care Team Providers Care Webfed Offset Press Operator Name Role Phone Tasia Ash MD Primary Care Provider + [phone] Jewel Manzano MD Unavailable [phone] Jalil Paulson MD Unavailable Unavailable Encounter Details Date Type Department Care Team Description 05/13/2024 Orders Only Medical Records [address] [place] [address] Flavio Hutchins DO Social History Tobacco Use [...] Associated Diagnosis Comments OUTSIDE PLAIN FILM Routine 05/12/2024 documented in this encounter Results * OUTSIDE PLAIN FILM (05/12/2024) Flavio Hutchins DO RADIOLOGY documented in this encounter Visit Diagnoses Not on filedocumented in this encounter Care Teams Webfed Offset Press Operator Relationship Specialty Start Date End Date Tasia Ash MD [address] [place] [address] PCP - General Internal Medicine 04/27/23 Jewel Manzano MD 175 [facility] [address] [place] [address] ORTHOPEDIC SURGERY 07/14/23 Jalil Paulson MD 175 [place] [address] Ophthalmology 11/09/23 06/02/24 Brimer Specialist Rheumatology 11/09/23 Trivedi Specialist PAIN MANAGEMENT 12/18/23 [place]at Specialist Rheumatology 06/03/24 [facility] Specialist Neurology 06/03/24 [facility] Specialist Optometry 06/03/24 documented as of this encounter
--- OUTSIDE RECORDS SUMMARY | 2025-10-02 17:05 | XMS_ITS | Encounter Summary ---
Author Organization [facility] Address [address] [place] [address] Care Team Providers Care Sales Porter Name Role Phone Araceli Augustin Primary Care Provider + Reason for Visit * Reason Onset Date Comments consult 09/24/2025 Encounter Details Date Type Department Care Team ([facility] st Contact Info) Description 09/24/2025 Telephone Gastroenterology - [place] 175 [facility] 175 [facility] [address] [place] [address] Melba Bunn MD 299 [facility] [address] [place] [address] Social History Tobacco Use Types Packs/Day Years [...] 09/24/2025 11:14 AM EST Referral received from [facility] for epigastric abdominal pain. Reached out [...] eventual strength) 09/11 Ongoing 2. Dominant R tray service worker strength at least 35# (vs 20initial, [...] filedocumented in this encounter Care Teams Sales Porter Relationship Specialty Start Date End Date Araceli Augustin PA [address] [place] [phone] PCP - General 11/20/24 documented as of this encounter
--- OUTSIDE RECORDS SUMMARY | 2025-10-02 17:05 | XMS_ITS | Encounter Summary ---
Author Organization [facility] Address [address] [place] [address] Care Team Providers Care Legal Nurse Consultant Name Role Phone Tasia Ash MD Primary Care Provider + [phone] Jewel Manzano MD Unavailable [phone] Jalil Paulson MD Unavailable Unavailable Encounter Details Date Type Department Care Team Description 04/10/2024 Orders Only Medical Records [address] [place] [address] [facility] Social History Tobacco Use Types Packs/Day Years [...] Name Priority Date/Time Associated Diagnosis Comments OUTSIDE IMAGING Routine 04/09/2024 documented in this encounter Results * OUTSIDE IMAGING (04/09/2024) [facility] RADIOLOGY documented in this encounter Visit Diagnoses Not on filedocumented in this encounter Care Teams Legal Nurse Consultant Relationship Specialty Start Date End Date Tasia Ash MD [address] [place] [address] PCP - General Internal Medicine 04/27/23 Jewel Manzano MD 175 [facility] [address] [place] [address] ORTHOPEDIC SURGERY 07/14/23 Jalil Paulson MD [address] [address] Ophthalmology 11/09/23 06/02/24 Brimer Specialist Rheumatology 11/09/23 Trivedi Specialist PAIN MANAGEMENT 12/18/23 Tallat Specialist Rheumatology 06/03/24 [facility] neurology Specialist Neurology 06/03/24 [facility] Optometry 06/03/24 documented as of this encounter
--- OUTSIDE RECORDS SUMMARY | 2025-10-02 17:05 | XMS_ITS | Encounter Summary ---
Author Organization [facility] Address [address] [place] [address] Care Team Providers Care Grain Wafer Machine Operator Name Role Phone Monty Allan MD Primary Care Provider [phone] [facility], Pcp Primary Care Provider UnavailTasia Barnhart MD Primary Care Provider [phone] Jewel Manzano MD Unavailable [phone] Jalil Paulson MD Unavailable Unavailable Reason for Visit * Reason Onset Date Comments Advice 09/10/2020 Work note 09/10/2020 Encounter Details Date Type Department Care Team Description 09/10/2020 Telephone Medicine/Pediatrics - [address] [phone] Sherrell Morel NP Advice; Work note Social History Tobacco Use Types Packs/Day Years [...] or suspected to have Coronavirus / COVID-19? Unable to assess 09/10/2020 3:47 PM EST documented as of this encounter Miscellaneous Notes * Telephone Encounter - Daniel Mckeon - 09/10/2020 4:17 PM EST Patient notified of results. 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 * Telephone Encounter - Sherrell Morel NP - 09/10/2020 3:48 PM EST Work note written. She should quarantine pending results. We will fax to erwin * Telephone Encounter - Deepika Munguia - 09/10/2020 1:07 PM EST Pt calling and wondering if she can go into work tonight. Was tested for Covid this morning aslo didn't get a note for work. 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 Waiting for a call back. documented in this encounter Plan of Treatment Not on file documented as of this encounter Visit Diagnoses Not on filedocumented in this encounter Care Teams Grain Wafer Machine Operator Relationship Specialty Start Date End Date Monty Allan MD [address] [place], [place] PCP - General Internal Medicine 02/16/15 07/12/22 [facility] [address] [place], [place] PCP - General Internal Medicine 07/13/22 04/26/23 Tasia Ash MD [address] [place], [place] PCP - General Internal Medicine 04/27/23 Jewel Manzano MD [address] [address] ORTHOPEDIC SURGERY 07/14/23 Jalil Paulson MD [address] [address] Ophthalmology 11/09/23 06/02/24 Gringer Specialist Rheumatology 07/14/23 11/08/23 Brimer Specialist Rheumatology 11/09/23 Farooq Specialist PAIN MANAGEMENT 12/18/23 Tallat Specialist Rheumatology 06/03/24 [facility] neurology Specialist Neurology 06/03/24 Erica Specialist Optometry 06/03/24 documented as of this encounter
--- OUTSIDE RECORDS SUMMARY | 2025-10-02 17:05 | XMS_ITS | Patient Health Record ---
Author Organization [facility] Address [address] [facility] [address] [place] [address] Care Team Providers Care Vb Net Developer Name Role Phone IKER ROBLERO PA-C Primary Care Provider Malacarol bianca Lozano Latonya Unavailable [phone] Allergies Allergen (clinical drug ingredient) Drug/Non Drug Allergy documented on EMR Reaction Allergy Type Onset Date Status erythromycin ERYTHROMYCIN Skin Rash Drug Allergy A ctive Results Component Value Reference Range Notes PDF Report Reviewed date:08/20/2025 05:10:43 PM Interpretation: Performing Lab:[facility] Irene [address]ori, [facility] [address], [place], Phone - [phone], Director - [facility] Notes/Report: Clinical Information:SRC: Chlamydia/GC Amplification Reviewed date:08/20/2025 05:10:49 PM Interpretation: Performing Lab:[facility] [address], [address], [place], Phone - [phone], Director - [facility] Notes/Report: Clinical Information:SRC: Chlamydia trachomatis, AZEB Negative Negative Neisseria gonorrhoeae, AZEB Negative Negative Vitamin B1 (Thiamine), Blood -[id number] Reviewed date:12/14/2024 02:48:18 PM Interpretation: Performing Lab:[facility] [place], [address] [place] [address], Phone - [phone], Director - [place] Notes/Report: Test(s) 432201-Owi. B1, Whole Blood was developed and its performance characteristics determined by [facility]. It has not been cleared or approved by the Food and Drug Administration. Vit. B1, Whole Blood 131.3 66.5-200.0 nmol/L Vitamin D, 03-Ncylsvt-857465 Reviewed date:12/14/2024 02:47:53 PM Interpretation: Performing Lab:[facility] [address], Phone - [phone], Director - [facility] Notes/Report: Test(s) 299868-Zlh. B1, Whole Blood was developed and its performance characteristics determined by [facility]. It has not been cleared or approved by the Food and Drug Administration. Vitamin D, 25-Hydroxy 48.0 30.0-100.0 ng/mL Vitamin D deficiency has been defined by the [place] of [employer] and an Endocrine Society practice guideline as a level of serum 25-OH vitamin D less than 20 ng/mL (1,2). The Endocrine Society went on to further define vitamin D insufficiency as a level between 21 and 29 ng/mL (2). 1. IOM ([place] of [employer]). 2010. Dietary reference intakes for calcium and D. [place]: The National Academies Press. 2. Angelica MF, Leonel CALVO, Sheeba MCKENNA, et al. Evaluation, treatment, and prevention of vitamin D deficiency: an Endocrine Society clinical practice guideline. JCEM. 2010; 96(7):1911-30. Triiodothyronine (T3), Free- 377041 Reviewed date:12/14/2024 02:48:08 PM Interpretation: Performing Lab:[facility] [address], Phone - [phone], Director - [facility] Notes/Report: Test(s) 228617-Xyz. B1, Whole Blood was developed and its performance characteristics determined by [facility]. It has not been cleared or approved by the Food and Drug Administration. Triiodothyronine (T3), Free 2.9 2.0-4.4 pg/mL TSH-[id number] Reviewed date:12/14/2024 02:48:55 PM Interpretation: Performing Lab:[facility] [address], Phone - [phone], Director - [facility] Notes/Report: Test(s) 949216-Lox. B1, Whole Blood was developed and its performance characteristics determined by [facility]. It has not been cleared or approved by the Food and Drug Administration. TSH 0.492 0.450-4.500 uIU/mL Thyroxine (T4) Free, Direct- 603034 Reviewed date:12/14/2024 02:48:28 PM Interpretation: Performing Lab:[facility] [address], Phone - [phone], Director - [facility] Notes/Report: Test(s) 328481-Agh. B1, Whole Blood was developed and its performance characteristics determined by [facility]. It has not been cleared or approved by the Food and Drug Administration. T4,Free(Direct) 1.16 0.82-1.77 ng/dL Vitamin V39-792991 Reviewed date:12/14/2024 02:48:01 PM Interpretation: Performing Lab:[facility] [address], Phone - [phone], Director - [facility] Notes/Report: Test(s) 017167-Vjv. B1, Whole Blood was developed and its performance characteristics determined by [facility]. It has not been cleared or approved by the Food and Drug Administration. Vitamin B12 861 777-6396 pg/mL Urinalysis, Complete-356037 Reviewed date:07/03/2025 07:42:16 AM Interpretation: Performing Lab:[facility] [address], Phone - [phone], Director - [facility] Notes/Report: Clinical Information:SRC: Clinical Information:SRC:UC Specific [place] 1.013 1.005-1.030 pH 6.5 5.0-7.5 Urine-Color Yellow [...] Bacteria None seen None seen/Few Urine Culture, Routine-[id number] 7 Reviewed date:07/03/2025 07:42:29 AM Interpretation: Performing Lab:[facility] [address], Phone - [phone], Director - [facility] Notes/Report: Clinical Information:SRC: Clinical Information:SRC:UC Urine Culture, Routine Final report Result 1 Mixed urogenital ramone 25,000-50,000 colony forming units per mL Urinalysis Reviewed date:10/14/2024 01:33:35 PM Interpretation: Performing Lab: Notes/Report: PH 8.0 PROTEIN Neg GLUCOSE Neg BLOOD Neg PDF Report Reviewed date:07/03/2025 07:41:07 AM Interpretation: Performing Lab:[facility] [place], [address], [place], Phone - [phone], Director - Elsa Notes/Report: Clinical Information:SRC: [id number]-Qsc IGP No Culture 30 Plus Reviewed date:07/17/2025 02:32:32 PM Interpretation: Performing Lab:[facility] [place], [address], [address], [place], Phone - [phone], Director - Jaswinder Notes/Report: Clinical Information:VAG/CERV [id number] Dates / Results....05/26/2023 ASCUS POS HPV Other..............Post Menopausal No. of containers..01 ThinPrep Vial Clinical Information:VAG/CERV [id number] Dates / Results....05/26/2023 ASCUS POS HPV Other..............Post Menopausal No. of containers..01 ThinPrep Vial DIAGNOSIS: NEGATIVE FOR INTRAEPITHELIAL LESION OR MALIGNANCY. THIS SPECIMEN WAS RESCREENED PART OF OUR TRIPLE AIR VALVE TESTER PROGRAM. Specimen adequacy: Satisfactory for evaluation. Endocervical and/or squamous metaplastic cells (endocervical component) are present. Clinician provided ICD10: Z01.419 Z11.51 Performed by: Tianna vasquez, Night Clerk Auditor (ASCP) QC reviewed by: Tutu weaver, Night Clerk Auditor (ASCP) . . Note: The Pap smear [...] Lab:[facility] [place], [address], [address], [place], Phone - [phone], [facility] - [facility] Notes/Report: Clinical Information:VAG/CERV [id number] Dates / Results....05/26/2023 ASCUS POS HPV Other..............Post Menopausal No. of containers..01 ThinPrep Vial PDF Report Reviewed date:08/21/2025 07:50:23 AM Interpretation: Performing Lab:[facility], [address], [address], [place], Phone - [phone], Director - [facility] Notes/Report: Clinical Information:SRC:UR Syphilis RPR w/reflex Reviewed date:08/21/2025 07:51:06 AM Interpretation: Performing Lab:[facility] [place], [address], [address], [place], Phone - [phone], Director - [facility] Notes/Report: Clinical Information:SRC:UR RPR Non Reactive Non Reactive HCV Antibody-[id number] Reviewed date:08/21/2025 07:51:12 AM Interpretation: Performing Lab:[facility] [place], [address], [address], [place], Phone - [phone], Director - [facility] Notes/Report: Clinical Information:SRC:UR Hep C [...] Lab:[facility] [place], [address], [address], [place], Phone - [phone], Director - [facility] Notes/Report: Clinical Information:SRC:UR Mycoplasma genitalium AZEB Negative Negative HIV Ab/p24 Ag with Reflex-[id number] 3935 Reviewed date:08/21/2025 07:51:19 AM Interpretation: Performing Lab:[facility] [place], [address], [address], [place], Phone - [phone], Director - Jaswinder Notes/Report: Clinical Information:SRC:UR HIV Ab/p24 Ag Screen Non Reactive Non Reactive HIV-1/HIV-2 antibodies and HIV-1 p24 antigen were NOT detected. There is no laboratory evidence of HIV infection. HIV Negative HBsAg Screen-[id number] Reviewed date:08/21/2025 07:50:52 AM Interpretation: Performing Lab:[facility] [place], [address], [address], [place], Phone - [phone], Director - Jaswinder Notes/Report: Clinical Information:SRC:UR HBsAg Screen Negative Negative PDF Report Reviewed date:12/14/2024 02:47:46 PM Interpretation: Performing Lab:[facility] [place], [address] [place] [address], Phone - [phone], Director - Elsa Notes/Report: Test(s) 272319-Gjx. B1, Whole Blood was developed and its performance characteristics determined by [facility]. It has not been cleared or approved by the Food and Drug Administration. Reason For Referral No Information Medications Medication SIG (Take, Route, Frequency, Duration) Notes Start Date End Date Status Vitamin C 500 MG as directed Orally Active Escitalopram Oxalate 10 MG Oral; Duration: 30 Days Active Turmeric 500 MG as directed Orally Active Gabapentin 100 MG TAKE 1 CAPSULE BY [facility] 3 TIMES A DAY Oral; Duration: [...] test positive, high risk on vaginal specimen (901489707587617) Cervical high risk human papillomavirus (HPV) DNA test positive (R87.810) Active confirmed Problem Postmenopausal atrophic vaginitis (41760153) Postmenopausal atrophic vaginitis (N95.2) Active confirmed Problem Cervicovaginal cytology: Low grade squamous intraepithelial lesion (802976160) Low grade squamous intraepithelial lesion on cytologic smear of cervix (LGSIL) (R87.612) Active confirmed Problem Non-toxic single thyroid nodule (880756592) Nontoxic single thyroid nodule (E04.1) Active confirmed Problem Autoimmune thyroiditis (38229168) Autoimmune thyroiditis (E06.3) Active confirmed Problem Anxiety disorder (685362204) Anxiety disorder, unspecified (F41.9) Active confirmed Problem Epidermal cyst (479465656) Epidermal cyst (L72.0) Active confirmed Problem Rheumatoid arthritis (40954684) Rheumatoid arthritis, unspecified (M06.9) Active confirmed Problem Endometrial intraepithelial neoplasia (419258363) 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) Active confirmed Problem Postcoital bleeding (13613965) Postcoital and contact bleeding (N93.0) Active confirmed Problem Unspecified abnormal finding in specimens from female genital organs (R87.9) Active confirmed Problem Menopause (029225327) Menopausal and female climacteric states (N95.1) Active confirmed Problem Anxiety state (467370571) Anxiety state, unspecified (300.00) Active confirmed Major Vital Signs Temperature 97.3 degrees Fahrenheit 07/03/2025 Blood pressure diastolic 84 mm Hg 07/03/2025 Height 62 in 07/03/2025 Blood pressure systolic 128 mm Hg 07/03/2025 Weight 161 lbs 07/03/2025 BMI 29.44 kg/m2 07/03/2025 Encounters Encounter Location Date Provider Diagnosis [facility] [address] [address] 12/05/2024 Latonya Lozano Total [address] [address] 02/14/2025 Latonyaines DiazLozano Total [address] [address] 03/06/2025 Latonyaines DiazLozano Total [address] [address] 10/14/2024 Latonya Mcgeeva Encounter for gynecological examination (general) (routine) without abnormal findings Z01.419 ; Encounter for screening mammogram for malignant neoplasm of breast Z12.31 ; Personal history of other diseases of the female genital tract Z87.42 ; Cervical high risk human papillomavirus (HPV) DNA test positive R87.810 and Postmenopausal atrophic vaginitis N95.[address] [address] 12/09/2024 Latonyaines Mcgeeva Other fatigue R53.83 and Menopausal and female climacteric states N95.[address] [address] 07/03/2025 Latonyaines Mcgeeva Lower abdominal pain , unspecified R10.30 ; Atypical squamous cells of undetermined significance on cytologic smear of vagina (ASC-US) R87.620 ; Cervical high risk human papillomavirus (HPV) DNA test positive R87.810 and Encounter for screening for human papillomavirus (HPV) Z11.[address] [address] 12/03/2024 Latonyaines DiazLozano Total [address] [address] 12/12/2024 Latonyaines DiazLozano [address] [address] 01/22/2025 Latonyaines DiazLozano [address] [address] 02/16/2025 Latonya Lozano Total [address] [address] 06/30/2025 Latonya Lozano Dysuria R30.[address] [address] 08/19/2025 Latonya Franciscoanueva High risk heterosexu al behavior Z72.[address] [address] 09/09/2025 Latonya Lozano Total [address] [address] 09/18/2025 Latonya Lozano [address] [address] 09/26/2025 Latonya Lozano Assessments Encounter Date Diagnosis (ICD [...] AND NEEDS TESTOSTERONE THERAPY, WILL REFER TO [facility]. WARNED PAT OF POSSIBLE VAGINAL [...] 10/14/2024 MM Digital Mammo Screening 05/04/2023 Chlamydia/GC Amplification-[id number] 2024 Insurance Providers Payer Name Payer Address Payer Phone Subscriber Number Group Number Insured Name Patient Relationship to Insured Coverage Start Date Coverage End Date [address] [address] [place]IL[place] QUINONEZ [id number] MARCUS OLSON Self - patient is the [...]
--- OUTSIDE RECORDS SUMMARY | 2025-10-02 17:05 | XMS_ITS | Encounter Summary ---
Author Organization [facility] Address [address] [place] [address] Care Team Providers Care Computer Systems Information Director Name Role Phone Tasia Ash MD Primary Care Provider [phone] Jewel Manzano MD Unavailable [phone] Jalil Paulson MD Unavailable Unavailable Encounter Details Date Type Department Care Team Description 04/11/2024 Pt. Non Urgent Medic al Question Adult Medicine - [place] [address] [place] [address] Tasia Ash MD [address] [place] [address] Social History Tobacco Use Types Packs/Day Years [...] Telephone Encounter - Bessy العراقي L.P.NClive - 04/11/2024 12:49 PM EDT From: María [...] on filedocumented in this encounter Care Teams Computer Systems Information Director Relationship Specialty Start Date End Date Tasia Ash MD [address] [place] [address] PCP - General Internal Medicine 04/27/23 Jewel Manzano MD [address] [address] ORTHOPEDIC SURGERY 07/14/23 Jalil Paulson MD [address] [address] Ophthalmology 11/09/23 06/02/24 Brimer Specialist Rheumatology 11/09/23 Trivedi Specialist PAIN MANAGEMENT 12/18/23 [place] Specialist Rheumatology 06/03/24 [facility] neurology Specialist Neurology 06/03/24 [facility] Specialist Optometry 06/03/24 documented as of this encounter
--- OUTSIDE RECORDS SUMMARY | 2025-10-02 17:05 | XMS_ITS | Encounter Summary ---
Author Organization [facility] Address [address] [place] [address] Care Team Providers Care Corporate Quality Manager Name Role Phone Monty Allan MD Primary Care Provider [phone] [facility], Pcp Primary Care Provider UnavailTasia Barnhart MD Primary Care Provider [phone] Jewel Manzano MD Unavailable [phone] Jalil Paulson MD Unavailable Unavailable Reason for Visit * Reason Onset Date Comments Advice 08/01/2018 Encounter Details Date Type Department Care Team Description 08/01/2018 Telephone General Surgery - [address] [place] [address] Terence Keenan MD [address] [place] [address] Advice Social History Tobacco Use Types Packs/Day [...] on filedocumented in this encounter Care Teams Corporate Quality Manager Relationship Specialty Start Date End Date Monty Allan MD [address] [place] [address] PCP - General Internal Medicine 02/16/15 07/12/22 [facility], Pcp [address] [place], [place] PCP - General Internal Medicine 07/13/22 04/26/23 Tasia Ash MD [address] [place] [address] PCP - General Internal Medicine 04/27/23 Jewel Manzano MD [address] [address] ORTHOPEDIC SURGERY 07/14/23 Jalil Paulson MD [address] [address] Ophthalmology 11/09/23 06/02/24 Gringer Specialist Rheumatology 07/14/23 11/08/23 Brimer Specialist Rheumatology 11/09/23 Trivedi Specialist PAIN MANAGEMENT 12/18/23 [place] Specialist Rheumatology 06/03/24 [facility] neurology Specialist Neurology 06/03/24 [place] Specialist Optometry 06/03/24 documented as of this encounter
--- OUTSIDE RECORDS SUMMARY | 2025-10-02 17:05 | XMS_ITS | Encounter Summary ---
Author Organization [facility] Address [address] [place] [address] Care Team Providers Care Band Director Name Role Phone Monty Allan MD Primary Care Provider [phone] [facility], Pcp Primary Care Provider UnavailTaisa Barnhart MD Primary Care Provider [phone] Jewel Manzano MD Unavailable [phone] Jalil Paulson MD Unavailable Unavailable Reason for Visit * Reason Onset Date Comments Gear Cutting Machine Set Up Operator Feedback 03/26/2018 MRI of Femur Encounter Details Date Type Department Care Team Description 03/26/2018 [facility] [address] [address] Adelita Fried DPM Gear Cutting Machine Set Up Operator Feedback (MRI of Femur) Social History Tobacco [...] Miscellaneous Notes * Telephone Encounter - Aspen Dunlpa - 04/20/2018 8:35 AM EDT Via fax. Appointment scheduled for 04/25/2018 at 2:00 pm * Telephone Encounter - Aspen Dunlap - 03/26/2018 12:45 PM EDT Notification letter mailed to patient. Office will contact patient to book appointment. Order faxed to [facility]. Office books with patient and will notify us with appointment. documented in this encounter Plan of Treatment Not on file documented as of this encounter Visit Diagnoses Not on filedocumented in this encounter Care Teams Band Director Relationship Specialty Start Date End Date Monty Allan MD [address] [place] [address] PCP - General Internal Medicine 02/16/15 07/12/22 [facility], Pcp [address] [place] [address] PCP - General Internal Medicine 07/13/22 04/26/23 Tasia Ash MD [address] [place] [address] PCP - General Internal Medicine 04/27/23 Jewel Manzano MD [address] [place] [address] ORTHOPEDIC SURGERY 07/14/23 Jalil Paulson MD [address] [address] Ophthalmology 11/09/23 06/02/24 [facility] Specialist Rheumatology 07/14/23 11/08/23 Brimer Specialist Rheumatology 11/09/23 Trivedi Specialist PAIN MANAGEMENT 12/18/23 Tallat Specialist Rheumatology 06/03/24 [facility] neurology Specialist Neurology 06/03/24 Amauriiat Specialist Optometry 06/03/24 documented as of this encounter
--- OUTSIDE RECORDS SUMMARY | 2025-10-02 17:05 | XMS_ITS | Encounter Summary ---
Author Organization [facility] Address [address] [place] [address] Care Team Providers Care Cemetery Counselor Name Role Phone Monty Allan MD Primary Care Provider [facility], Pcp Primary Care Provider [facility] Tasia Ash MD Primary Care Provider [phone] Jewel Manzano MD Unavailable [phone] Jalil Paulson MD Unavailable Unavailable Encounter Details Date Type Department Care Team Description 01/04/2022 SCAN [facility] 175 [facility] [address] [place] [address] Jewel Manzano MD 175 [facility] [address] [place] [address] Social History Tobacco Use Types Packs/Day Years [...] on filedocumented in this encounter Care Teams Cemetery Counselor Relationship Specialty Start Date End Date Monty Allan MD [address] [place] [address] PCP - General Internal Medicine 02/16/15 07/12/22 [facility], [facility] [address] [place], [place] PCP - General Internal Medicine 07/13/22 04/26/23 Tasia Ash MD [address] [place] [address] PCP - General Internal Medicine 04/27/23 Jewel Manzano MD [address] [address] ORTHOPEDIC SURGERY 07/14/23 Jalil Paulson MD [address] [address] Ophthalmology 11/09/23 06/02/24 [facility] Specialist Rheumatology 07/14/23 11/08/23 Brimer Specialist Rheumatology 11/09/23 Trivedi Specialist PAIN MANAGEMENT 12/18/23 Tallat Specialist Rheumatology 06/03/24 [facility] neurology Specialist Neurology 06/03/24 [facility] Specialist Optometry 06/03/24 documented as of this encounter
--- OUTSIDE RECORDS SUMMARY | 2025-10-02 17:05 | XMS_ITS | Encounter Summary ---
Author Organization [facility] Address [address] [place] [address] Care Team Providers Care Healthcare Administration Intern Name Role Phone Monty Allan MD Primary Care Provider [facility], Pcp [facility] MD Primary Care Provider [phone] Jewel Manzano MD Unavailable [phone] Jalil Paulson MD Unavailable Unavailable Encounter Details Date Type Department Care Team Description 12/27/2021 SCAN [facility] 175 [facility] [address] [place] [address] Jewel Manzano MD 175 [facility] [address] [place] [address] Social History Tobacco Use Types Packs/Day Years [...] on filedocumented in this encounter Care Teams Healthcare Administration Intern Relationship Specialty Start Date End Date Monty Allan MD [address] [place] [address] PCP - General Internal Medicine 02/16/15 07/12/22 [facility], [facility] [address] [place], [place] PCP - General Internal Medicine 07/13/22 04/26/23 Tasia Ash MD [address] [place] [address] PCP - General Internal Medicine 04/27/23 Jewel Manzano MD [address] [address] ORTHOPEDIC SURGERY 07/14/23 Jalil Paulson MD [address] [address] Ophthalmology 11/09/23 06/02/24 [facility] Specialist Rheumatology 07/14/23 11/08/23 Brimer Specialist Rheumatology 11/09/23 Trivedi Specialist PAIN MANAGEMENT 12/18/23 Tallat Specialist Rheumatology 06/03/24 [facility] neurology Specialist Neurology 06/03/24 [facility] Specialist Optometry 06/03/24 documented as of this encounter
--- OUTSIDE RECORDS SUMMARY | 2025-10-02 17:05 | XMS_ITS | Encounter Summary ---
Author Organization [facility] Address [address] [place] [address] Care Team Providers Care Tube Trailer Filler Name Role Phone Monty Allan MD Primary Care Provider [phone] [facility], Pcp Primary Care Provider UnavailTasia Barnhart MD Primary Care Provider [phone] Jewel Manzano MD Unavailable [phone] Jalil Paulson MD Unavailable Unavailable Encounter Details Date Type Department Care Team Description 01/03/2022 Trim Crew Supervisor Report Medical Records [address] [place] [id number] Chintan Condon MD Social History Tobacco Use [...] on filedocumented in this encounter Care Teams Tube Trailer Filler Relationship Specialty Start Date End Date Monty Allan MD [address] [place] [address] PCP - General Internal Medicine 02/16/15 07/12/22 [facility] Pcp [address] [place] [address] PCP - General Internal Medicine 07/13/22 04/26/23 Tasia Ash MD [address] [place] [address] PCP - General Internal Medicine 04/27/23 Jewel Manzano MD 175 [facility] [address] [place] [address] ORTHOPEDIC SURGERY 07/14/23 Jalil Paulson MD [address] [address] Ophthalmology 11/09/23 06/02/24 [facility] Specialist Rheumatology 07/14/23 11/08/23 Brimer Specialist Rheumatology 11/09/23 Trivedi Specialist PAIN MANAGEMENT 12/18/23 Tallat Specialist Rheumatology 06/03/24 [facility] neurology Specialist Neurology 06/03/24 Pull[facility] Specialist Optometry 06/03/24 documented as of this encounter
--- OUTSIDE RECORDS SUMMARY | 2025-10-02 17:05 | XMS_ITS | Encounter Summary ---
Author Organization [facility] Address [address] [place] [address] Care Team Providers Care Transport Aircrewman Name Role Phone Monty Allna MD Primary Care Provider [phone] [facility], Pcp Primary Care Provider [facility] Tasia Rush MD Primary Care Provider [phone] Jewel Manzano MD Unavailable Jalil Paulson MD Unavailable Unavailable Encounter Details Date Type Department Care Team Description 09/15/2016 Release of Information Medical Records [address] [place] [address] Abstract, Provider Social History Tobacco Use Types [...] on filedocumented in this encounter Care Teams Transport Aircrewman Relationship Specialty Start Date End Date Monty Allan MD [address] [place] [address] PCP - General Internal Medicine 02/16/15 07/12/22 [facility], Pcp [address] [place] [address] PCP - General Internal Medicine 07/13/22 04/26/23 Tasia Ash MD [address] [place] [address] PCP - General Internal Medicine 04/27/23 Jewel Manzano MD [address] [address] ORTHOPEDIC SURGERY 07/14/23 Jalil Paulson MD [address] [address] Ophthalmology 11/09/23 06/02/24 [facility] Specialist Rheumatology 07/14/23 11/08/23 Brimer Specialist Rheumatology 11/09/23 Trivedi Specialist PAIN MANAGEMENT 12/18/23 Tallat Specialist Rheumatology 06/03/24 [facility] neurology Specialist Neurology 06/03/24 Amauriiat Specialist Optometry 06/03/24 documented as of this encounter
--- OUTSIDE RECORDS SUMMARY | 2025-10-02 17:05 | XMS_ITS | Encounter Summary ---
Author Organization [facility] Address [address] [place] [address] Care Team Providers Care Child And Adolescent Psychiatrist Name Role Phone Monty Allan MD Primary Care Provider [phone] [facility], Pcp Primary Care Provider [facility] Tasia Rush MD Primary Care Provider [phone] Jewel Manzano MD Unavailable [phone] Jalil Paulson MD Unavailable Unavailable Encounter Details Date Type Department Care Team Description 07/21/2016 [facility] Medical Records [address] [place] [address] Abstract, Provider Social History Tobacco Use Types [...] on filedocumented in this encounter Care Teams Child And Adolescent Psychiatrist Relationship Specialty Start Date End Date Monty Allan MD [address] [place] [address] PCP - General Internal Medicine 02/16/15 07/12/22 [facility], Pcp [address] [place] [address] PCP - General Internal Medicine 07/13/22 04/26/23 Tasia Ash MD [address] [place] [address] PCP - General Internal Medicine 04/27/23 Jewel Manzano MD [address] [address] ORTHOPEDIC SURGERY 07/14/23 Jalil Paulson MD [address] [address] Ophthalmology 11/09/23 06/02/24 [facility] Specialist Rheumatology 07/14/23 11/08/23 Brimer Specialist Rheumatology 11/09/23 Trivedi Specialist PAIN MANAGEMENT 12/18/23 Tallat Specialist Rheumatology 06/03/24 [facility] neurology Specialist Neurology 06/03/24 Amauriiat Specialist Optometry 06/03/24 documented as of this encounter
--- OUTSIDE RECORDS SUMMARY | 2025-10-02 17:06 | XMS_ITS | Encounter Summary ---
Author Organization [facility] Address [address] [place] [address] Care Team Providers Care Gang Sawyer Name Role Phone Monty Allan MD Primary Care Provider [phone] [facility], Pcp Primary Care Provider [facility] Tasia Ash MD Primary Care Provider [phone] Jewel Manzano MD Unavailable [phone] Jalil Paulson MD Unavailable Unavailable Reason for Visit * Reason Comments E-prescribe Rx Request Encounter Details Date Type Department Care Team Description 05/25/2022 Refill Adult Medicine - [place] [address] [place] [address] Monty Allan MD [address] [place] [address] E-prescribe Rx Request Social History Tobacco Use [...] suspected to have Coronavirus/COVID-19? No / Unsure 05/24/2022 2:56 PM EDT documented as of this encounter Plan of Treatment Not on file documented as of this encounter Visit Diagnoses Not on filedocumented in this encounter Care Teams Gang Sawyer Relationship Specialty Start Date End Date Monty Allan MD [address] [place] [address] PCP - General Internal Medicine 02/16/15 07/12/22 [facility], Pcp [address] [place], [place] PCP - General Internal Medicine 07/13/22 04/26/23 Tasia Ash MD [address] [place] [address] PCP - General Internal Medicine 04/27/23 Jewel Manzano MD [address] [place] [address] ORTHOPEDIC SURGERY 07/14/23 Jalil Paulson MD [address] [address] Ophthalmology 11/09/23 06/02/24 [facility] Specialist Rheumatology 07/14/23 11/08/23 Brimer Specialist Rheumatology 11/09/23 Trivedi Specialist PAIN MANAGEMENT 12/18/23 Tallat Specialist Rheumatology 06/03/24 [facility] neurology Specialist Neurology 06/03/24 Amauriiat Specialist Optometry 06/03/24 documented as of this encounter
--- OUTSIDE RECORDS SUMMARY | 2025-10-02 17:06 | XMS_ITS | Encounter Summary ---
Author Organization [facility] Address [address] [place] [address] Care Team Providers Care Hand Finisher Name Role Phone Tasia Ash MD Primary Care Provider [phone] Jewel Manzano MD Unavailable [phone] Encounter Details Date Type Department Care Team Description 06/26/2024 Pt. Non Urgent Medical Question Bariatric Surgery - [place] 175 [facility] [address] [place] [id number] Jacy Mcdowell MD 175 [facility] [address] [place] [address] Social History Tobacco Use Types [...] on filedocumented in this encounter Care Teams Hand Finisher Relationship Specialty Start Date End Date Tasia Ash MD [address] [place] [address] PCP - General Internal Medicine 04/27/23 Jewel Manzano MD [address] [address] ORTHOPEDIC SURGERY 07/14/23 Brimer Specialist Rheumatology 11/09/23 Trivedi Specialist PAIN MANAGEMENT 12/18/23 Tallat Specialist Rheumatology 06/03/24 [facility] neurology Specialist Neurology 06/03/24 Erica Specialist Optometry 06/03/24 documented as of this encounter
--- OUTSIDE RECORDS SUMMARY | 2025-10-02 17:06 | XMS_ITS | Encounter Summary ---
Author Organization [facility] Address [address] [place] [address] Care Team Providers Care Account Manager Trainee Name Role Phone Tasia Ash MD Primary Care Provider [phone] Jewel Manzano MD Unavailable [phone] Encounter Details Date Type Department Care Team Description 08/26/2024 Orders Only Medical Records [address] [place] [address] [facility] Social History Tobacco Use Types Packs/Day [...] Associated Diagnosis Comments OUTSIDE PLAIN FILM Routine 08/26/2024 documented in this encounter Results * OUTSIDE PLAIN FILM (08/26/2024) [facility] RADIOLOGY documented in this encounter Visit Diagnoses Not on filedocumented in this encounter Care Teams Account Manager Trainee Relationship Specialty Start Date End Date Tasia Ash MD [address] [place] [address] PCP - General Internal Medicine 04/27/23 Jewel Manzano MD [address] [place] [address] ORTHOPEDIC SURGERY 07/14/23 Brimer Specialist Rheumatology 11/09/23 Trivedi Specialist PAIN MANAGEMENT 12/18/23 Tallat Specialist Rheumatology 06/03/24 [facility] neurology Specialist Neurology 06/03/24 Erica Specialist Optometry 06/03/24 documented as of this encounter
--- OUTSIDE RECORDS SUMMARY | 2025-10-02 17:06 | XMS_ITS | Encounter Summary ---
Author Organization [facility] Address [address] [place] [address] Care Team Providers Care Swimming Coach Name Role Phone Tasia Ash MD Primary Care Provider [phone] Jewel Manzano MD Unavailable [phone] Jalil Paulson MD Unavailable Unavailable Encounter Details Date Type Department Care Team Description 05/16/2024 Pt. Non Urgent Medic al Question Adult Medicine - [place] [address] [place] [address] Miguel Avila, TL [address] [place] [address] Social History Tobacco Use Types Packs/Day Years [...] encounter Miscellaneous Notes * Telephone Encounter - Mary Soriano M.A. - 05/16/2024 11:58 AM EDTFrom: María Phillips To: Adryan Avila Sent: 05/16/2024 11:58 AM EDT Subject: [facility] infectious disease I have heard nothing about this referral you sent. I called and they said they have nothing. Where exactly did you send this? I was given a number on the portal. It???s not [facility] infectious disease. It was some [facility] doctors office. Please give me the accurate information. You said I would get a phone calll. I???ve heard nothing documented in this encounter Plan of Treatment Not on file documented as of this encounter Visit Diagnoses Not on filedocumented in this encounter Care Teams Swimming Coach Relationship Specialty Start Date End Date Tasia Ash MD [address] [place] [address] PCP - General Internal Medicine 04/27/23 Jewel Manzano MD [address] [address] ORTHOPEDIC SURGERY 07/14/23 Jalil Paulson MD [address] [address] Ophthalmology 11/09/23 06/02/24 Brimer Specialist Rheumatology 11/09/23 [facility] Specialist PAIN MANAGEMENT 12/18/23 Tallat Specialist Rheumatology 06/03/24 [facility] neurology Specialist Neurology 06/03/24 [facility] Specialist Optometry 06/03/24 documented as of this encounter
--- OUTSIDE RECORDS SUMMARY | 2025-10-02 17:06 | XMS_ITS | Encounter Summary ---
Author Organization [facility] Address [address] [place] [address] Care Team Providers Care Ordnance Technician Name Role Phone Monty Allan MD Primary Care Provider [phone] [facility], Pcp Primary Care Provider UnavailTasia Barnhart MD Primary Care Provider [phone] Jewel Manzano MD Unavailable [phone] Jalil Paulson MD Unavailable Unavailable Reason for Visit * Reason Onset Date Comments REFERRAL 04/17/2020 Encounter Details Date Type Department Care Team Description 04/17/2020 Telephone Physiatry - [address] [address] Vesta Barker MD [address] [place] [address] [place] [id number] REFERRAL Social History Tobacco Use Types Packs/Day [...] Telephone Encounter - Bailey Membreno M.A. - 04/17/2020 3:01 PM EDT No we did not receive it. Unsure if [facility] received it . You can call and ask them * Telephone Encounter - Priscila Morales - 04/17/2020 2:00 PM EDT [facility] calling to see if we receieved a referral. It was faxed by us to Physiatry documented in this encounter Plan of Treatment Not on file documented as of this encounter Visit Diagnoses Not on filedocumented in this encounter Care Teams Ordnance Technician Relationship Specialty Start Date End Date Monty Allan MD [address] [place] [address] PCP - General Internal Medicine 02/16/15 07/12/[address] PCP - General Internal Medicine 07/13/22 04/26/23 Tasia Ash MD [address] [place] [address] PCP - General Internal Medicine 04/27/23 Jewel Manzano MD [address] [address] ORTHOPEDIC SURGERY 07/14/23 Jalil Paulson MD [address] [address] Ophthalmology 11/09/23 06/02/24 [facility] Specialist Rheumatology 07/14/23 11/08/23 Brimer Specialist Rheumatology 11/09/23 Trivedi Specialist PAIN MANAGEMENT 12/18/23 Tallat Specialist Rheumatology 06/03/24 [facility] neurology Specialist Neurology 06/03/24 [facility] Specialist Optometry 06/03/24 documented as of this encounter
--- OUTSIDE RECORDS SUMMARY | 2025-10-02 17:06 | XMS_ITS | Encounter Summary ---
Author Organization [facility] Address [address] [place] [address] Care Team Providers Care Glass Blowing Lathe Operator Name Role Phone Monty Allan MD Primary Care Provider [phone] [facility], Pcp Primary Care Provider UnavailTasia Barnhart MD Primary Care Provider [phone] Jewel Manzano MD Unavailable [phone] Jalil Paulson MD Unavailable Unavailable Reason for Visit * Reason Onset Date Comments radiology 05/11/2022 mri order Encounter Details Date Type Department Care Team Description 05/11/2022 Telephone Radiology - [address] [address] Monty Allan, [address] [place] [address] radiology (mri order) Social History Tobacco Use Types Packs/Day Years [...] suspected to have Coronavirus/COVID-19? No / Unsure 05/05/2022 2:58 PM EDT documented as of this encounter Miscellaneous Notes * Telephone Encounter - Frances Fraser - 05/24/2022 10:28 AM EDT Right has been denied Based on [employer] [facility] Guidelines Section(s): MS 21 Wrist and 1.0 General Guidelines, we cannot approve this request. Your healthcare provider told us that you have a problem related to your right wrist. The request cannot be approved because: Imaging requires six weeks of provider directed treatment to be completed. Supported treatments include (but are not limited to) drugs for swelling or pain, an in office workout (physical therapy), and/or oral or injected steroids. This must have been completed in the past three months without improved symptoms. Contact (via office visit, phone, email, or messaging) must occur after the treatmentis completed. This has not been met because: You have not completed six weeks of provider directed treatment. There was no contact with your provider after completing treatment. For Peer to Peer you may call [phone] Case # [id number] Thank you Prior Auth Dept. * Telephone Encounter - Monty Allan MD - 05/11/2022 4:54 PM EDT Okay we will do the left first hold on the right for now she has decreased talent development coordinator in both hands left greater than right * Telephone Encounter - Jessica Dash - 05/11/2022 4:22 PM EDT Helcarlos, there was an order placed for this patient that was for bilateral wrists. Decreased talent development coordinator in right hand. We called to book this and patient was insisting it is her left so after looking in notes it seems it is the left. I changed bilateral order to left and made an additional order for right wrist because we need two orders for bilaterals. We can cover the proximal hand but if bilateral hand MRIs are wanted [place] [id number] for right and left. Thank you Jessica documented in this encounter Plan of Treatment Not on file documented as of this encounter Visit Diagnoses Not on filedocumented in this encounter Care Teams Glass Blowing Lathe Operator Relationship Specialty Start Date End Date Monty Allan MD [address] [place] [address] PCP - General Internal Medicine 02/16/15 07/12/22 [facility], Pcp [address] [place], [place] PCP - General Internal Medicine 07/13/22 04/26/23 Tasia Ash MD [address] [place] [address] PCP - General Internal Medicine 04/27/23 Jewel Manzano MD [address] [address] ORTHOPEDIC SURGERY 07/14/23 Jalil Paulson MD [address] [address] Ophthalmology 11/09/23 06/02/24 [facility] Specialist Rheumatology 07/14/23 11/08/23 Brimer Specialist Rheumatology 11/09/23 Trivedi Specialist PAIN MANAGEMENT 12/18/23 Tallat Specialist Rheumatology 06/03/24 [facility] neurology Specialist Neurology 06/03/24 Erica Specialist Optometry 06/03/24 documented as of this encounter
--- OUTSIDE RECORDS SUMMARY | 2025-10-02 17:06 | XMS_ITS | Encounter Summary ---
Author Organization [facility] Address [address] [place] [address] Care Team Providers Care Cellophane Tester Name Role Phone Tasia Ash MD Primary Care Provider [phone] Jewel Manzano MD Unavailable [phone] Jalil Paulson MD Unavailable Unavailable Reason for Visit * Reason Onset Date Comments er follow up 06/20/2023 Booked for 07/14 Encounter Details Date Type Department Care Team Description 06/20/2023 Telephone Adult Medicine - [place] [address] [place] [address] Tasia Ash MD [address] [place] [address] er follow up (Booked for 07/14) Social History Tobacco Use Types Packs/Day Years [...] encounter Miscellaneous Notes * Telephone Encounter - Breanne Demetrio - 06/20/2023 3:48 PM EDT ER follow-up appointment booked YES 07/14/23 If ER or UC follow up, can be booked with APC or MD. If hospital admission follow up MUST be booked with a physician Appointment time: 9:45AM Provider visit is scheduled with: T[facility] patient was treated at: wing Date of visit: 06/20/23 Was this only an ER/UC visit or was the patient admitted to the hospital? ER visit onlyER visit only If patient was admitted what was the date of discharge? N/A Reason/diagnosis for visit or stay: diverticulitis Was visit or stay related to an injury? NO If yes, what was the date of injury (DOI)? N/A If yes, was the injury due to N/A Tests performed: Lab: NO X-ray: NO EKG: NO Other tests. If yes, what?; N/A documented in this encounter Plan of Treatment Not on file documented as of this encounter Visit Diagnoses Not on filedocumented in this encounter Care Teams Cellophane Tester Relationship Specialty Start Date End Date Tasia Ash MD [address] [place] [address] PCP - General Internal Medicine 04/27/23 Jewel Manzano MD [address] [address] ORTHOPEDIC SURGERY 07/14/23 Jalil Paulson MD [address] [address] Ophthalmology 11/09/23 06/02/24 Gringer Specialist Rheumatology 07/14/23 11/08/23 Brimer Specialist Rheumatology 11/09/23 Trivedi Specialist PAIN MANAGEMENT 12/18/23 [place] Specialist Rheumatology 06/03/24 [facility] neurology Specialist Neurology 06/03/24 [facility] Specialist Optometry 06/03/24 documented as of this encounter
--- OUTSIDE RECORDS SUMMARY | 2025-10-02 17:06 | XMS_ITS | Encounter Summary ---
Author Organization [facility] Address [address] [place] [address] Care Team Providers Care Count Team Clerk Name Role Phone Tasia Ash MD Primary Care Provider [phone] Jewel Manzano MD Unavailable [phone] Jalil Paulson MD Unavailable Unavailable Encounter Details Date Type Department Care Team Description 07/18/2023 Transfer Records Medical Records [address] [place] [address] Social History Tobacco Use Types Packs/Day Years [...] In the last 10 days, have billy ajcome been in contact with someone who was confirmed or suspected to have Coronavirus/COVID-19? No / Unsure 07/14/2023 9:44 AM EDT documented as of this encounter Plan of Treatment Not on file documented as of this encounter Visit Diagnoses Not on filedocumented in this encounter Care Teams Count Team Clerk Relationship Specialty Start Date End Date Tasia Ash MD [address] [place] [address] PCP - General Internal Medicine 04/27/23 Jewel Manzano MD [address] [address] ORTHOPEDIC SURGERY 07/14/23 Jalil Paulson MD [address] [address] Ophthalmology 11/09/23 06/02/24 [place] Specialist Rheumatology 07/14/23 11/08/23 Brimer Specialist Rheumatology 11/09/23 Trivedi Specialist PAIN MANAGEMENT 12/18/23 Tallat Specialist Rheumatology 06/03/24 [facility] neurology Specialist Neurology 06/03/24 Amauriiat Specialist Optometry 06/03/24 documented as of this encounter
--- OUTSIDE RECORDS SUMMARY | 2025-10-02 17:06 | XMS_ITS | Encounter Summary ---
Author Organization [facility] Address [address] [place] [address] Care Team Providers Care Nursing Program Chair Name Role Phone Tasia Ash MD Primary Care Provider [phone] Jewel Manzano MD Unavailable [phone] Jalil Paulson MD Unavailable Unavailable Reason for Visit * Reason Onset Date Comments er follow up 07/14/2023 Encounter Details Date Type Department Care Team Description 07/14/2023 Telephone Adult Medicine - [place] [address] [place] [address] Tasia Ash MD [address] [place] [address] er follow up Social History Tobacco Use [...] AM EDT Pt states she was at [facility] on 04/20 and 04/28 and didn't see her tests/notes from those visits in her MyChart. Is there a way to get those records into her MyChart? documented in this encounter Plan of Treatment Not on file documented as of this encounter Visit Diagnoses Not on filedocumented in this encounter Care Teams Nursing Program Chair Relationship Specialty Start Date End Date Tasia Ash MD [address] [place] [address] PCP - General Internal Medicine 04/27/23 Jewel Manzano MD 175 [facility] [address] [place] [address] ORTHOPEDIC SURGERY 07/14/23 Jalil Paulson MD [address] [address] Ophthalmology 11/09/23 06/02/24 Gringer Specialist Rheumatology 07/14/23 11/08/23 Brimer Specialist Rheumatology 11/09/23 Trivedi Specialist PAIN MANAGEMENT 12/18/23 Tallat Specialist Rheumatology 06/03/24 [facility] neurology Specialist Neurology 06/03/24 Erica Specialist Optometry 06/03/24 documented as of this encounter
--- OUTSIDE RECORDS SUMMARY | 2025-10-02 17:06 | XMS_ITS | Encounter Summary ---
Author Organization [facility] Address [address] [place] [address] Care Team Providers Care Distribution Analyst Name Role Phone Monty Allan MD Primary Care Provider [phone] [facility], Pcp Primary Care Provider UnavailTasia Barnhart MD Primary Care Provider [phone] Jewel Manzano MD Unavailable [phone] Jalil Paulson MD Unavailable Unavailable Reason for Visit * Reason Onset Date Comments Medication 02/14/2022 Encounter Details Date Type Department Care Team Description 02/14/2022 Refill Gastroenterology [address] [place] [phone] Elodia Bunn MD [address] [place] [address] Medication Social History Tobacco Use Types Packs/Day Years [...] suspected to have Coronavirus/COVID-19? No / Unsure 02/14/2022 2:26 PM EDT documented as of this encounter Plan of Treatment Not on file documented as of this encounter Visit Diagnoses Not on filedocumented in this encounter Care Teams Distribution Analyst Relationship Specialty Start Date End Date Monty Allan MD [address] [place] [address] PCP - General Internal Medicine 02/16/15 07/12/22 [facility] [address] [place], [place] PCP - General Internal Medicine 07/13/22 04/26/23 Tasia Ash MD [address] [place] [address] PCP - General Internal Medicine 04/27/23 Jewel Manzano MD [address] [address] ORTHOPEDIC SURGERY 07/14/23 Jalil Paulson MD [address] [address] Ophthalmology 11/09/23 06/02/24 [facility]ringer Specialist Rheumatology 07/14/23 11/08/23 Brimer Specialist Rheumatology 11/09/23 Trivedi Specialist PAIN MANAGEMENT 12/18/23 [place] Specialist Rheumatology 06/03/24 [facility] neurology Specialist Neurology 06/03/24 Erica Specialist Optometry 06/03/24 documented as of this encounter
--- OUTSIDE RECORDS SUMMARY | 2025-10-02 17:06 | XMS_ITS | Encounter Summary ---
Author Organization [facility] Address [address] [place] [address] Care Team Providers Care Boiler Cleaner Name Role Phone Monty Allan MD Primary Care Provider [facility], Pcp Primary Care Provider UnavailTasia Barnhart MD Primary Care Provider [phone] Jewel Manzano MD Unavailable [phone] Jalil Paulson MD Unavailable Unavailable Reason for Referral * EXTERNAL (Priority) - Authorized/Booked Specialty Diagnoses / Procedures Referred By Corine t Referred To Contact ORTHOPEDICS / Orthopedic Procedures REFERRAL TO ORTHOPEDICS (OUT OF NETWORK) Monty Allan MD [address] [place] [address] [facility] [address] [place] [address] Referral ID Status Reason Start Date Expiration Date V isits Requested Visits Authorized SEE NOTE Authorized/B ooked 04/07/2020 07/09/2020 1 1 Reason for Visit * Reason Onset Date Comments Associate Professor Of Economics Feedback 04/07/2020 orthopedics Encounter Details Date Type Department Care Team Description 04/07/2020 Telephone Adult Medicine - [place] [address] [place] [address] Monty Allan MD [address] [place] [address] Associate Professor Of Economics Feedback (orthopedics) Social History Tobacco Use Types Packs/Day Years [...] Telephone Encounter - Monty Allan MD - 04/07/2020 4:51 PM EDT Thank you will send to [facility] * Telephone Encounter - Irais Martin - 04/07/2020 4:18 PM EDT We could send them to [facility] ([facility] They take the patients insurance. Or we can try working a new order to [facility] as well that can treat the diagnosis. * Telephone Encounter - Monty Allan MD - 04/07/2020 4:13 PM EDT Okay Thank you she is adamant about not going back to the original surgeon what are my options if Dr espitia will not see her * Telephone Encounter - Irais Martin - 04/07/2020 3:[address] Allan, You put in an orthopedic order for this patient on 04/03/20 for Patient had carpal tunnel release surgery now in excruciating pain MRI showed persistent carpal tunnel issues patient wants a second opinion suggested Dr. Mesa please evaluate to see Dr. Mesa. We sent it over to [facility] and Jacquelyn who schedules these appointments called us and said Dr. Mesa is requesting you or clinical staff tocontact her at [phone] to discuss this referral. She will be in the office all . She thinks this patient should go back to the initial surgeon she saw. Please advise. Thank you! Irais Elias Referrals Department documented in this encounter Plan of Treatment Not on file documented as of this encounter Visit Diagnoses Not on filedocumented in this encounter Care Teams Boiler Cleaner Relationship Specialty Start Date End Date Monty Allan MD [address] [place] [address] PCP - General Internal Medicine 02/16/15 07/12/22 [facility], [address] PCP - General Internal Medicine 07/13/22 04/26/23 Tasia Ash MD [address] [place] [address] PCP - General Internal Medicine 04/27/23 Jewel Manzano MD [address] [place] [address] ORTHOPEDIC SURGERY 07/14/23 Jalil Paulson MD [address] [place] [address] Ophthalmology 11/09/23 06/02/24 Gringer Specialist Rheumatology 07/14/23 11/08/23 Brimer Specialist Rheumatology 11/09/23 Trivedi Specialist PAIN MANAGEMENT 12/18/23 Tallat Specialist Rheumatology 06/03/24 [facility] neurology Specialist Neurology 06/03/24 [place] Specialist Optometry 06/03/24 documented as of this encounter
--- OUTSIDE RECORDS SUMMARY | 2025-10-02 17:06 | XMS_ITS | Encounter Summary ---
Author Organization [facility] Address [address] [place] [address] Care Team Providers Care Wood And Hardware Outfitter Name Role Phone Tasia Ash MD Primary Care Provider [phone] Jewel Manzano MD Unavailable [phone] Encounter Details Date Type Department Care Team Description 06/19/2024 Orders Only Adult Medicine - [place] [address] [place] [address] Tasia Ash MD [address] [place] [address] Social History Tobacco Use Types Packs/Day Years [...] on filedocumented in this encounter Care Teams Wood And Hardware Outfitter Relationship Specialty Start Date End Date Tasia Ash MD [address] [place] [address] PCP - General Internal Medicine 04/27/23 Jewel Manzano MD [address] [place] [address] ORTHOPEDIC SURGERY 07/14/23 Brimer Specialist Rheumatology 11/09/23 [place] Specialist PAIN MANAGEMENT 12/18/23 Tallat Specialist Rheumatology 06/03/24 [facility] neurology Specialist Neurology 06/03/24 Erica Specialist Optometry 06/03/24 documented as of this encounter
--- OUTSIDE RECORDS SUMMARY | 2025-10-02 17:06 | XMS_ITS | Encounter Summary ---
Author Organization [facility] Address [address] [place] [address] Care Team Providers Care Automotive General Manager Name Role Phone Monty Allan MD Primary Care Provider [phone] [place], Pcp Primary Care Provider Tasia Stallings MD Primary Care Provider [phone] Jewel Manzano MD Unavailable Jalil Paulson MD Unavailable Unavailable Encounter Details Date Type Department Care Team Description 04/08/2020 [facility] Medical Records [address] [place] [address] Abstract, Provider Social History Tobacco Use Types [...] on filedocumented in this encounter Care Teams Automotive General Manager Relationship Specialty Start Date End Date Monty Allan MD [address] [place] [address] PCP - General Internal Medicine 02/16/15 07/12/22 [facility], Pcp [address] [place] [address] PCP - General Internal Medicine 07/13/22 04/26/23 Tasia Ash MD [address] [place] [address] PCP - General Internal Medicine 04/27/23 Jewel Manzano MD 175 [facility] [address] [place] [address] ORTHOPEDIC SURGERY 07/14/23 Jalil Paulson MD [address] [address] Ophthalmology 11/09/23 06/02/24 Gringer Specialist Rheumatology 07/14/23 11/08/23 Brimer Specialist Rheumatology 11/09/23 Trivedi Specialist PAIN MANAGEMENT 12/18/23 [place] Specialist Rheumatology 06/03/24 [facility] neurology Specialist Neurology 06/03/24 Amauriiat Specialist Optometry 06/03/24 documented as of this encounter
--- OUTSIDE RECORDS SUMMARY | 2025-10-02 17:06 | XMS_ITS | Encounter Summary ---
Author Organization [facility] Address [address] [place] [address] Care Team Providers Care Orthotic/Prosthetic Practitioner Name Role Phone Monty Allan MD Primary Care Provider [phone] [facility], Pcp Primary Care Provider UnavailTasia Barnhart MD Primary Care Provider Jewel Manzano MD Unavailable [phone] Jalil Paulson MD Unavailable Unavailable Encounter Details Date Type Department Care Team Description 04/19/2022 Orders Only Endocrinology - [place] [address] [place] [address] Lee Garcia MD [address] [place], [place] [id number] Rock's disease (Primary Dx) Social History Tobacco Use Types [...] documented as of this encounter Results * THYROID PROFILE W/TSH (04/22/2022 11:41 AM EDT) TSH CASCADE 0.92 0.40 - 4.00 uIU/ml 04/22/2022 2:20 PM EDT [facility] 04/22/2022 11:4 1 AM EDT 04/22/2022 11:42 AM EDT Narrative [facility] - 04/22/2022 2:20 PM EDT Release to patient->Immediate Lee Garcia MD LAB [facility] documented in this encounter Visit Diagnoses Diagnosis Rock's disease- Primary Chronic lymphocytic thyroiditis Rock's disease Chronic lymphocytic thyroiditis 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 (HCC) documented in this encounter Care Teams Orthotic/Prosthetic Practitioner Relationship Specialty Start Date End Date Monty Allan MD [address] [place] [address] PCP - General Internal Medicine 02/16/15 07/12/22 [facility] [address] [place] [address] PCP - General Internal Medicine 07/13/22 04/26/23 Tasia Ash MD [address] [place] [address] PCP - General Internal Medicine 04/27/23 Jewel Manzano MD [address] [address] ORTHOPEDIC SURGERY 07/14/23 Jalil Paulson MD [address] [address] Ophthalmology 11/09/23 06/02/24 Gringer Specialist Rheumatology 07/14/23 11/08/23 Brimer Specialist Rheumatology 11/09/23 Trivedi Specialist PAIN MANAGEMENT 12/18/23 Tallat Specialist Rheumatology 06/03/24 [facility] neurology Specialist Neurology 06/03/24 [place] Specialist Optometry 06/03/24 documented as of this encounter
--- OUTSIDE RECORDS SUMMARY | 2025-10-02 17:06 | XMS_ITS | Data Portability ---
Author Organization [facility] Address [address] [place] [address] Care Team Providers Care Lumber Marker Name Role Phone [facility] Primary Care Provi ramses Assessment No assessment recorded. Plan of Treatment Reminders Order Date Submit Date Provider Last Modified By Organization Details Last Modified Time Details Appointments None recorded. Lab rapid strep group A, throat 2022 023 [email or web address] [facility], [address] [place] [address], [address], 3 19:09:54 streptococc us group A, culture, throat 2022 023 [email or web address] [facility], [address] [place] [address], [place], [address], 3 19:09:54 Referral emergency medicine referral - left lower facial weakness and numbness x 5 days [email or web address] Emergency Department, [address] [place], [address], 4 18:35:48 Procedures None recorded. Surgeries None recorded. Imaging None recorded. Medication Orders prednisone 20 mg tablet 2022 023 yestrella 5 [id number], [address] [place], [address], 4 16:05:23 benzonatate 200 mg capsule 2022 023 yestrella 5 [id number], [address] [place], [address], 16:05:13 Patient TargetsNo targets recorded. Patient Instructions Encounter Date Encounter Id Patient Instructions Last Modified By Organization Details Last Modified Time 12/17/2022 [id number] sore throat: car e instructions [email or web address] Not [...] care for yourself at home? Take an mjjz-uob-uripbdo pain medicine. Avoid Ibuprofen, Aleve and Aspirin if . If the doctor prescribed antibiotics, take them as directed. Do not stop taking them just because you feel better. You need to take the full course of antibiotics. Be careful when taking siik-gdi-wgmvgqd cold or influenza (flu) medicines and Tylenol [...] worse. [email or web address] Not available 12/17/2022 19:07:18 05/19/2024 [id number] head or face zehra n: care instructions [...] Range : Negat aashish Not Available [facility]) [address] [facility], [place], [address], 12/21/2022 06:07:48 12/17/1912/17/2022 rapid strep group A, throa t Unknown Analyte Normal = Negati ve Not Available [facility] [address] [place], [address], 12/17/2022 18:34:11 12/17/1912/17/2022 rapid strep group A, throa t Unknown Analyte negati ve Not Available [facility] [address] [place], [address], 12/17/2022 18:34:11 Result Notes None recorded. 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 2022 ANNETTE LUPICA null, PA - [facility] 3 18:38:27 Numbness of face 337659580 Active 2023 Juan F Noe, DO [facility], [place], [address] [facility] PA - [facility] 4 16:17:43 [...] Name and Address Organization Details Recorded Time 254379 erythromy libby medicatio n hives Not available [...] Updated DateTime 3 162.56 cm 27.5 kg/m2 30024.7 8 g 97 [degF] 16 /min 98 [...] Updated DateTime 4 162.56 cm 27.5 kg/m2 71122.7 8 g 5 97.9 [degF] 18 /min 89 /min 98 % 121/82 mm[Hg] Nella Ayla PA - [facility] 4 16:07:24 Social History Question Answer Notes LastModified by [employer] Details LastModified Time Tobacco Smoking Status Current [...] Much Tobacco Do You Smoke? 0.5 PPD [email or web address] Information not available 12/17/2022 Have You Recently Traveled Abroad? No [email or web address] Information not available 12/17/2022 Sex: Unknown Functional Status Question Answer Note LastModified by Organizat ion Details LastModified Time Do you use any illicit or recreational drugs? No [email or web address] Information not available 12/17/2022 Do you or have you ever used any other forms of tobacco or nicotine? No [email or web address] Information not available 12/17/2022 What is your level of alcohol consumption? Occasional Information not available 05/19/2024 Mental Status None recorded. Family History Relationship Description Onset Age of this Age Resolved Age Notes LastModified by Organization Details LastModified Time Unspecified Relation Disorder of thyroid gland [email or web address] Not available 2022 18:38:50 Medical History No [...] ICD10 Code Diagnosis IMO Codes Diagnosis Note [id number] [place] [address] [address] 12/17/2022 17:31:11 12/17/2022 19:17:28 Sore throat 859942952 J02.9 [id number] [place] [address] [address] 05/19/2024 15:59:19 05/19/2024 16:21:39 Numbness of face 352271801 R20.0 ER now !!! Health Concerns Section Related Observation LastModified by Organization Detai ls LastModified Time None Recorded Concern Status LastModified by Organization Details LastModified Time None Recorded Advance Directives Directive None Recorded Payers Insurance Date Sequence Insurance Name Policy Number Policy Chacko Covered Member ID Chacko Member ID Guarantor Name 05/19/2024 2 [facility] [id number] 05/19/2024 1 [facility] - DOS PRIOR TO 2024 (PPO) [facility] [id number] [facility] 12/17/2022 2 [employer] (POS) [facility] [id number] [facility] 05/19/2024 1 [employer] S[employer]ATURE [employer]MIN[employer]AT[employer] - GEHA - DOS ON OR BEFORE 11/05/2023 - GEHA (PPO) [facility] [id number] [facility] 05/02/2023 1 [employer] [facility] [id number] [facility] Notes Date Note Type Note Provider [...] Narendra Diaz NP [address] [place], [address], PA - [facility] 12/17/2022 19:11:14 05/19/2024 text/html Facial ProblemRe ported by Patient a couple of weeks. twitching in face. x5 days having facial pain. pain level is 5/10. feels slight numbness on left side of mouth. patient also notices lower facial weakness as well. no chest pain. has slight head ache Juan F Noe DO [address] [place], [address], PA - [facility] 05/19/2024 16:42:19 OBGyn Episode No OBEpisode recorded.
--- OUTSIDE RECORDS SUMMARY | 2025-10-02 17:06 | XMS_ITS | Encounter Summary ---
Author Organization [facility] Address [address] [place] [address] Care Team Providers Care Reactor Operator Name Role Phone Monty Allan MD Primary Care Provider [phone] [facility], Pcp Primary Care Provider Tasia Stallings MD Primary Care Provider [phone] Jewel Manzano MD Unavailable [phone] Jalil Paulson MD Unavailable Unavailable Encounter Details Date Type Department Care Team Description 04/17/2020 Prestidigitator Report Medical Records [address] [place] [address] Jersey Rey MD Social History Tobacco Use [...] on filedocumented in this encounter Care Teams Reactor Operator Relationship Specialty Start Date End Date Monty Allan MD [address] [place] [address] PCP - General Internal Medicine 02/16/15 07/12/22 [facility], Pcp [address] [place], [place] PCP - General Internal Medicine 07/13/22 04/26/23 Tasia Ash MD [address] [place] [address] PCP - General Internal Medicine 04/27/23 Jewel Manzano MD [address] [address] ORTHOPEDIC SURGERY 07/14/23 Jalil Paulson MD [address] [address] Ophthalmology 11/09/23 06/02/24 Gringer Specialist Rheumatology 07/14/23 11/08/23 Brimer Specialist Rheumatology 11/09/23 Trivedi Specialist PAIN MANAGEMENT 12/18/23 Tallat Specialist Rheumatology 06/03/24 [facility] neurology Specialist Neurology 06/03/24 Amauriiat Specialist Optometry 06/03/24 documented as of this encounter
--- OUTSIDE RECORDS SUMMARY | 2025-10-02 17:06 | XMS_ITS | Encounter Summary ---
Author Organization [facility] Address [address] [place] [address] Care Team Providers Care Rail Gang Supervisor Name Role Phone Tasia Ash MD Primary Care Provider [phone] Jewel Manzano MD Unavailable [phone] Jalil Paulson MD Unavailable Unavailable Encounter Details Date Type Department Care Team Description 04/02/2024 Telephone [facility] [address] [phone] Von Mcclure MD [address] [address] Social History Tobacco Use Types Packs/Day Years [...] down the stairs and presented to the [facility] ED. She had an X-ray and was given crutches. I called the patient to offer her an appoinment with Irma on 04/09/24 but she declined and stated that it is unacceptable to make her wait that long after an injury and requested to speak to an fire control officer. Patient also requested that Dr. Mcclure call [...] on filedocumented in this encounter Care Teams Rail Gang Supervisor Relationship Specialty Start Date End Date Tasia Ash MD [address] [place] [address] PCP - General Internal Medicine 04/27/23 Jewel Manzano MD [address] [address] ORTHOPEDIC SURGERY 07/14/23 Jalil Paulson MD [address] [address] Ophthalmology 11/09/23 06/02/24 Brimer Specialist Rheumatology 11/09/23 Trivdei Specialist PAIN MANAGEMENT 12/18/23 Tallat Specialist Rheumatology 06/03/24 [facility] neurology Specialist Neurology 06/03/24 [facility] Opt[facility] 06/03/24 documented as of this encounter
--- OUTSIDE RECORDS SUMMARY | 2025-10-02 17:06 | XMS_ITS | Encounter Summary ---
Author Organization [facility] Address [address] [place] [address] Care Team Providers Care Drop Board Worker Name Role Phone Tasia Ash MD Primary Care Provider [phone] Jewel Manzano MD Unavailable [phone] Jalil Paulson MD Unavailable Unavailable Encounter Details Date Type Department Care Team Description 10/02/2023 Telephone [facility] 175 [facility] [address] [place] [phone] Rachell Roberson APRN Social History Tobacco Use Types Packs/Day [...] encounter Miscellaneous Notes * Telephone Encounter - Luz Castillo - 10/02/2023 12:12 PM EST Left pt detailed vm at [phone] Manzano's recommendation, pt to see Dr Mcclure or Jacquelyn Young for eval and discuss her options as she is now in the knee replacement category. Fay, If pt calls back, please schedule her for eval w Dr Mcclure or Jacquelyn Young. Thank you. * Telephone Encounter - Luz Castillo - 10/02/2023 11:44 AM EST Spoke with pt. No injury to the knee. Pt states pain has been going on for a very long time, and that the pain is getting worse and is not sure what to do. Pt also states that she has buttocks pain and has been going to PT for both issues. Was given exercises to do but it is making the pain in bothareas worse. She does have PT appt tomorrow again. Please advise. Thank you. * Telephone Encounter - Fay Vigil - 10/02/2023 10:55 AM EST María is calling stating she's been experiencing extreme knee pain and would like a call back as to what she can do to ease the pain documented in this encounter Plan of Treatment Not on file documented as of this encounter Visit Diagnoses Not on filedocumented in this encounter Care Teams Drop Board Worker Relationship Specialty Start Date End Date Tasia Ash MD [address] [place] [address] PCP - General Internal Medicine 04/27/23 Jewel Manzano MD [address] [address] ORTHOPEDIC SURGERY 07/14/23 Jalil Paulson MD [address] [address] Ophthalmology 11/09/23 06/02/24 Gringer Specialist Rheumatology 07/14/23 11/08/23 Brimer Specialist Rheumatology 11/09/23 Trivedi Specialist PAIN MANAGEMENT 2/12/24 Tallat Specialist Rheumatology 06/03/24 [facility] neurology Specialist Neurology 06/03/24 Erica Specialist Optometry 06/03/24 documented as of this encounter
--- OUTSIDE RECORDS SUMMARY | 2025-10-02 17:06 | XMS_ITS | Encounter Summary ---
Author Organization [facility] Address [address] [place] [address] Care Team Providers Care Barber Apprentice Name Role Phone Monty Allan MD Primary Care Provider [phone] [facility], Pcp Primary Care Provider UnavailTasia Barnhart MD Primary Care Provider [phone] Jewel Manzano MD Unavailable [phone] Jalil Paulson MD Unavailable Unavailable Encounter Details Date Type Department Care Team Description 04/10/2020 Pt. Non Urgent Medic al Question Adult Medicine [address] [address] Monty Allan MD [address] [place] [address] Social History Tobacco Use Types Packs/Day Years [...] Notes * Rosie Metzger M.A. - 04/10/2020 12:53 PM EDTFrom: María Phillips To: Monty Allan MD Sent: 04/10/2020 12:38 PM EDT Subject: Candido I received a call from Dr Rey office. Please call me. I have an urgent question for you documented in this encounter Plan of Treatment Not on file documented as of this encounter Visit Diagnoses Not on filedocumented in this encounter Care Teams Barber Apprentice Relationship Specialty Start Date End Date Monty Allan MD [address] [place] [address] PCP - General Internal Medicine 02/16/15 07/12/[address] PCP - General Internal Medicine 07/13/22 04/26/23 Tasia Ash MD [address] [place] [address] PCP - General Internal Medicine 04/27/23 Jewel Manzano MD [address] [address] ORTHOPEDIC SURGERY 07/14/23 Jalil Paulson MD [address] [address] Ophthalmology 11/09/23 06/02/24 Gringer Specialist Rheumatology 07/14/23 11/08/23 Brimer Specialist Rheumatology 11/09/23 Trivedi Specialist PAIN MANAGEMENT 12/18/23 Tallat Specialist Rheumatology 06/03/24 [facility] neurology Specialist Neurology 06/03/24 Pulliat Specialist Optometry 06/03/24 documented as of this encounter
--- OUTSIDE RECORDS SUMMARY | 2025-10-02 17:06 | XMS_ITS | Encounter Summary ---
Author Organization [facility] Address [address] [place] [address] Care Team Providers Care Wire Products Inspector Name Role Phone Monty Allan MD Primary Care Provider [phone] [facility], Pcp Primary Care Provider Tasia Stallings MD Primary Care Provider [phone] Jewel Manzano MD Unavailable [phone] Jalil Paulson MD Unavailable Unavailable Reason for Referral * EXTERNAL (Routine) - Authorized/Booked Specialty Diagnoses / Procedures Referred By Corine strange Referred To Contact Physical Therapy Procedures REFERRAL TO PHYSICAL THERAPY Von Morales PA [address] [place] [address] [facility] Referral ID Status Reason Start Date Expiration Date V isits Requested Visits Authorized [id number] Authorized/B ooked 05/01/2020 05/01/2021 1 1 Reason for Visit * Reason Onset Date Comments 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 Tying 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 Operator 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 05/01/2020 [facility] PT Encounter Details Date Type Department Care Team Description 05/01/2020 Telephone [facility] - [address] [address] Von Morales PA Cro Feedback ([facility]ando LARSON) [...] on filedocumented in this encounter Care Teams Wire Products Inspector Relationship Specialty Start Date End Date Monty Allan MD [address] [place] [address] PCP - General Internal Medicine 02/16/15 07/12/22 [facility] [place] [address] [place], [place] PCP - General Internal Medicine 07/13/22 04/26/23 Tasia Ash MD [address] [place], [place] PCP - General Internal Medicine 04/27/23 Jewel Manzano MD [address] [address] ORTHOPEDIC SURGERY 07/14/23 Jalil Paulson MD [address] [address] Ophthalmology 11/09/23 06/02/24 Gringer Specialist Rheumatology 07/14/23 11/08/23 Brimer Specialist Rheumatology 11/09/23 Trivedi Specialist PAIN MANAGEMENT 12/18/23 Tallat Specialist Rheumatology 06/03/24 [facility] neurology Specialist Neurology 06/03/24 Erica Specialist Optometry 06/03/24 documented as of this encounter
--- OUTSIDE RECORDS SUMMARY | 2025-10-02 17:06 | XMS_ITS | Encounter Summary ---
Author Organization [facility] Address [address] [place] [address] Care Team Providers Care Wind Turbine Installer Name Role Phone Monty Allan MD Primary Care Provider [phone] [facility] Primary Care Provider Tasia Stallings MD Primary Care Provider [phone] Jewel Manzano MD Unavailable [phone] Jalil Paulson MD Unavailable Unavailable Encounter Details Date Type Department Care Team Description 06/27/2022 Drum Puller Report Medical Records [address] [place] [address] June Brito APRN Social History Tobacco Use [...] on filedocumented in this encounter Care Teams Wind Turbine Installer Relationship Specialty Start Date End Date Monty Allan MD [address] [place] [address] PCP - General Internal Medicine 02/16/15 07/12/22 [facility] [address] [place], [place] PCP - General Internal Medicine 07/13/22 04/26/23 Tasia Ash MD [address] [place] [address] PCP - General Internal Medicine 04/27/23 Jewel Manzano MD 175 [facility] [address] [place] [address] ORTHOPEDIC SURGERY 07/14/23 Jalil Paulson MD [address] [address] Ophthalmology 11/09/23 06/02/24 Gringer Specialist Rheumatology 07/14/23 11/08/23 Brimer Specialist Rheumatology 11/09/23 Trivedi Specialist PAIN MANAGEMENT 12/18/23 Tallat Specialist Rheumatology 06/03/24 [facility] neurology Specialist Neurology 06/03/24 Erica Specialist Optometry 06/03/24 documented as of this encounter
--- OUTSIDE RECORDS SUMMARY | 2025-10-02 17:06 | XMS_ITS | Encounter Summary ---
Author Organization [facility] Address [address] [place] [address] Care Team Providers Care Service Support Representative Name Role Phone Tasia Ash MD Primary Care Provider [phone] Jewel Manzano MD Unavailable [phone] Jalil Paulson MD Unavailable Unavailable Encounter Details Date Type Department Care Team Description 04/03/2024 [facility] [address] [phone] Von Mcclure MD [address] [address] Social History Tobacco Use Types Packs/Day Years [...] on filedocumented in this encounter Care Teams Service Support Representative Relationship Specialty Start Date End Date Tasia Ash MD [address] [place] [address] PCP - General Internal Medicine 04/27/23 Jewel Manzano MD 175 [facility] [address] [place] [address] ORTHOPEDIC SURGERY 07/14/23 Jalil Paulson MD [address] [address] Ophthalmology 11/09/23 06/02/24 Brimer Specialist Rheumatology 11/09/23 Triveid Specialist PAIN MANAGEMENT 12/18/23 Tallat Specialist Rheumatology 06/03/24 [facility] neurology Specialist Neurology 06/03/24 Pulliat Specialist Optometry 06/03/24 documented as of this encounter
--- OUTSIDE RECORDS SUMMARY | 2025-10-02 17:06 | XMS_ITS | Encounter Summary ---
Author Organization [facility] Address [address] [place] [address] Care Team Providers Care Unemployment Specialist Name Role Phone Tasia Ash MD Primary Care Provider [phone] Jewel Manzano MD Unavailable [phone] Jalil Paulson MD Unavailable Unavailable Encounter Details Date Type Department Care Team Description 03/25/2024 Orders Only Medical Records [address] [place] [address] Henry Israel PA-C Social History Tobacco Use [...] on filedocumented in this encounter Care Teams Unemployment Specialist Relationship Specialty Start Date End Date Tasia Ash MD [address] [place] [address] PCP - General Internal Medicine 04/27/23 Jewel Manzano MD 175 [facility] [address] [place] [address] ORTHOPEDIC SURGERY 07/14/23 Jalil Paulson MD [address] [address] Ophthalmology 11/09/23 06/02/24 Brimer Specialist Rheumatology 11/09/23 Trivedi Specialist PAIN MANAGEMENT 12/18/23 Tallat Specialist Rheumatology 06/03/24 [facility] neurology Specialist Neurology 06/03/24 [facility] Opt[facility] 06/03/24 documented as of this encounter
--- OUTSIDE RECORDS SUMMARY | 2025-10-02 17:06 | XMS_ITS | Encounter Summary ---
Author Organization [facility] Address [address] [place] [address] Care Team Providers Care Bowl Sander Name Role Phone Tasia Ash MD Primary Care Provider Jewel Manzano MD Unavailable [phone] Jalil Paulson MD Unavailable Unavailable Reason for Referral * Non ZACHERY (Routine) - Closed Specialty Diagnoses / Procedures Referred By Contraymon strange Referred To Contact Dermatology Diagnoses Skin lesion Procedures REFERRAL TO DERMATOLOGY Tasia Ash MD [address] [place] [address] External Dermatology Referral ID Status Reason Start Date Expiration Date Visits Re quested Visits Authorized [id number] Closed 09/13/2023 1 1 Encounter Details Date Type Department Care Team Description 09/12/2023 Pt. Non Urgent Medical Question Adult Medicine - [place] [address] [place] [address] Tasia Ash MD [address] [place] [address] Skin lesion (Primary Dx) Social History Tobacco Use Types [...] Telephone Encounter - Charley Ybarra L.P.N. - 09/12/2023 12:16 PM ESTFrom: María Phillips To: César Ash Sent: 09/12/2023 12:15 PM EST Subject: Dermatology Could you please send a referral for dermatology for me. I???m having some issues with rashes and Ihaven???t been checked in a long time. Thank you documented in this encounter Plan of Treatment Not on file documented as of this encounter Visit Diagnoses Diagnosis Skin lesion- Primary Unspecified disorder of skin and subcutaneous tissue documented in this encounter Care Teams Bowl Sander Relationship Specialty Start Date End Date Tasia Ash MD [address] [place] [address] PCP - General Internal Medicine 04/27/23 Jewel Manzano MD [address] [address] ORTHOPEDIC SURGERY 07/14/23 Jalil Paulson MD [address] [address] Ophthalmology 11/09/23 06/02/24 Gringer Specialist Rheumatology 07/14/23 11/08/23 Brimer Specialist Rheumatology 11/09/23 Trivedi Specialist PAIN MANAGEMENT 12/18/23 Tallat Specialist Rheumatology 06/03/24 [facility] neurology Specialist Neurology 06/03/24 Erica Specialist Optometry 06/03/24 documented as of this encounter
--- OUTSIDE RECORDS SUMMARY | 2025-10-02 17:06 | XMS_ITS | Encounter Summary ---
Author Organization [facility] Address [address] [place] [address] Care Team Providers Care Weight Training Instructor Name Role Phone Community, Pcp Primary Care Provider Tasia Stallings MD Primary Care Provider [phone] Jewel Manzano MD Unavailable [phone] Jalil Paulson MD Unavailable Unavailable Reason for Visit * Reason Onset Date Comments Release Of Information 07/13/2022 [facility] Encounter Details Date Type Department Care Team Description 07/13/2022 Telephone Adult Medicine - [address] [address] Monty Allan MD [address] [place] [address] Release Of Information ([facility]) Social History Tobacco Use Types Packs/Day Years [...] Miscellaneous Notes * Telephone Encounter - Mary Oden - 07/13/2022 10:49 AM EDT MENDOZA received from patient-patient is transferring care to [facility]. Please fax all records to [phone] MENDOZA faxed to medical records and confirmation filed in MENDOZA box documented in this encounter Plan of Treatment Not on file documented as of this encounter Visit Diagnoses Not on filedocumented in this encounter Care Teams Weight Training Instructor Relationship Specialty Start Date End Date [facility], Pcp PCP - General Internal Medicine 07/13/22 04/26/23 Tasia Ash MD [address] [place] [address] PCP - General Internal Medicine 04/27/23 Jewel Manzano MD 175 [facility] [address] [place] [address] ORTHOPEDIC SURGERY 07/14/23 Jalil Paulson MD [address] [address] Ophthalmology 11/09/23 06/02/24 Gringer Specialist Rheumatology 07/14/23 11/08/23 Brimer Specialist Rheumatology 11/09/23 Trivedi Specialist PAIN MANAGEMENT 12/18/23 Tallat Specialist Rheumatology 06/03/24 [facility] neurology Specialist Neurology 06/03/24 Pull[place] Specialist Optometry 06/03/24 documented as of this encounter
--- OUTSIDE RECORDS SUMMARY | 2025-10-02 17:06 | XMS_ITS | Encounter Summary ---
Author Organization [facility] Address [address] [place] [address] Care Team Providers Care Power Equipment Technology Instructor Name Role Phone Monty Allan MD Primary Care Provider [phone] [facility], Pcp Primary Care Provider [facility] Tasia Rush MD Primary Care Provider [phone] Jewel Manzano MD Unavailable [phone] Jalil Paulson MD Unavailable Unavailable Reason for Visit * Reason Comments E-prescribe Rx Request Encounter Details Date Type Department Care Team Description 04/07/2020 Refill Medicine/Pediatrics - [address] [phone] Sherrell Morel NP E-prescribe Rx Request Social [...] AM EDT Renewing only once. Not termite technician rx * Telephone Encounter - Savana Self [...] Payor: [employer] / Plan: PPO $20 [facility] [id number] / Product Type: POS [id number] documented in this encounter Plan of Treatment Not on file documented as of this encounter Visit Diagnoses Not on filedocumented in this encounter Care Teams Power Equipment Technology Instructor Relationship Specialty Start Date End Date Monty Allan MD [address] [place] [address] PCP - General Internal Medicine 02/16/15 07/12/22 [facility] [address] [place] [address] PCP - General Internal Medicine 07/13/22 04/26/23 Tasia Ash MD [address] [place] [address] PCP - General Internal Medicine 04/27/23 Jewel Manzano MD [address] [address] ORTHOPEDIC SURGERY 07/14/23 Jalil Paulson MD [address] [address] Ophthalmology 11/09/23 06/02/24 Gringer Specialist Rheumatology 07/14/23 11/08/23 Brimer Specialist Rheumatology 11/09/23 Trivedi Specialist PAIN MANAGEMENT 12/18/23 Tallat Specialist Rheumatology 06/03/24 [facility] neurology Specialist Neurology 06/03/24 rEica Specialist Optometry 06/03/24 documented as of this encounter
--- OUTSIDE RECORDS SUMMARY | 2025-10-02 17:06 | XMS_ITS | Encounter Summary ---
Author Organization [facility] Address [address] [place] [address] Care Team Providers Care Data Entry Manager Name Role Phone Monty Allan MD Primary Care Provider [phone] [facility], Pcp Primary Care Provider Tasia Stallings MD Primary Care Provider [phone] Jewel Manzano MD Unavailable [phone] Jalil Paulson MD Unavailable Unavailable Encounter Details Date Type Department Care Team Description 07/23/2020 State Trooper Report Medical Records [address] [place] [address] Chintan Condon MD Social History Tobacco Use [...] filedocumented in this encounter Care Teams Data Entry Manager Relationship Specialty Start Date End Date Monty Allan MD [address] [place] [address] PCP - General Internal Medicine 02/16/15 07/12/22 [facility], Pcp [address] [place], [place] PCP - General Internal Medicine 07/13/22 04/26/23 Tasia Ash MD [address] [place] [address] PCP - General Internal Medicine 04/27/23 Jewel Manzano MD [address] [address] ORTHOPEDIC SURGERY 07/14/23 Jalil Paulson MD [address] [address] Ophthalmology 11/09/23 06/02/24 Gringer Specialist Rheumatology 07/14/23 11/08/23 Brimer Specialist Rheumatology 11/09/23 Trivedi Specialist PAIN MANAGEMENT 12/18/23 Tallat Specialist Rheumatology 06/03/24 [facility] neurology Specialist Neurology 06/03/24 Erica Specialist Optometry 06/03/24 documented as of this encounter
--- OUTSIDE RECORDS SUMMARY | 2025-10-02 17:06 | XMS_ITS | Encounter Summary ---
Author Organization [facility] Address [address] [place] [address] Care Team Providers Care Commercial Lines Account Assistant Name Role Phone Tasia Ash MD Primary Care Provider [phone] Jewel Manzano MD Unavailable [phone] Jalil Paulson MD Unavailable Unavailable Encounter Details Date Type Department Care Team Description 05/15/2024 Pt. Non Urgent Medical Question Adult Medicine - [place] [address] [place] [address] Miguel Avila PA [address] [place] [address] Insomnia, unspecified type (Primary Dx) Social History Tobacco Use Types [...] as of this encounter Visit Diagnoses Diagnosis Insomnia, unspecified type- Primary documented in this encounter Care Teams Commercial Lines Account Assistant Relationship Specialty Start Date End Date Tasia Ash MD [address] [place] [address] PCP - General Internal Medicine 04/27/23 Jewel Manzano MD 175 [facility] [address] [place] [address] ORTHOPEDIC SURGERY 07/14/23 Jalil Paulson MD [address] [address] Ophthalmology 11/09/23 06/02/24 Brimer Specialist Rheumatology 11/09/23 Trivedi Specialist PAIN MANAGEMENT 12/18/23 Tallat Specialist Rheumatology 06/03/24 [facility] neurology Specialist Neurology 06/03/24 Amauriiat Specialist Optometry 06/03/24 documented as of this encounter
--- OUTSIDE RECORDS SUMMARY | 2025-10-02 17:06 | XMS_ITS | Clinical Summary ---
Author Organization [facility] Address [address] [place] [address] Care Team Providers Care Sheet Rock Installer Name Role Phone Tasia Ash MD Primary Care Provider [phone] Jewel Manzano MD Unavailable [phone] Allergies Active Allergy Reactions Severity Noted Date Comments Clindamycin Hives/Urticaria 06/01/2015 Duloxetine Hcl Rash/Dermatitis 11/07/2019 Erythromycin Hives/Urticaria,Rash /Lampasas titis Medium 06/01/2015 all mycins Other reaction(s): Hives/Urticaria Other reaction(s): Hives/Urticaria all mycins all mycins Infliximab 05/02/2024 Twiching legs, burning scalp, headache Medications Medication Sig Dispensed Refills Start Date End Date Status ascorbic acid (VITAMIN C) 250 MG tablet Take 1 Tablet by mouth. 0 Active nicotine (NICODERM CQ) 21 MG/24HRIndications:T obacco use disorder Place 1 Patch onto the skin every 24 hours for 30 days. 28 Patch 0 05/30/2024 Active rifampin (RIFADIN) 300 MG capsule Take 2 Capsules by mouth daily. Per ID for latent TB for 4months 10 Capsule 0 06/03/2024 Active vitamin B-12 (CYANOCOBALAMIN) 1000 MCG tablet Take 1 Tablet by mouth. 0 04/17/2024 Active Cholecalciferol (Vitamin D3) 1000 units Cap Take 25 mcg by mouth. 0 04/17/2024 Active lorazepam (ATIVAN) 1 MG tablet TAKE 1 TABLET BY MOUTH 2 TIMES A DAY FOR 3 DAYS NEEDED FOR ANXIETY 0 04/17/2024 Active Melatonin 10 MG Tab Take 10 mg by mouth. 0 04/17/2024 Active cetirizine (ZYRTEC) 10 MG tabletIndications:De rmatographia TAKE 1 TABLET BY MOUTH EVERY DAY 30 Tablet 4 07/12/2024 Active Active Problems Problem Noted Date Post-traumatic osteoarthritis of left kn ee 10/03/2023 Primary osteoarthritis of right knee History of diverticulitis 07/28/2023 Thyroid nodule 07/05/2021 Overview: US 06/2021 FNA pending Other specified anxiety disorders 2020 Rheumatoid arthritis 12/25/2020 History of carpal tunnel surgery of righ t wrist 02/07/2020 Carpal tunnel syndrome 01/23/2020 Overview: 01/2020 steroid injection left, endoscopic release right Episcleritis of both eyes 01/07/2020 Overview: 01/23- [facility] Fibromyalgia 12/24/2019 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 With resultant bursitis/capsulitis, treated with injections. Dr. Castillo History of actinic keratoses 03/19/2019 Overview: Actinic keratoses 03/24 right cheek (lichenoid) Incisional hernia, without obstruction o r gangrene 08/02/2018 Sebaceous cyst 06/21/2018 Abnormal mammogram of left breast 2015 Tobacco abuse 06/01/2015 Abdominal pain Epigastric pain Throat pain Change in bowel habits Immunizations Name Administration Dates Next Due COVID-19 (Pfizer) 02/02/2022,,03/24/2021, 021 COVID-19 (Pfizer) Pt Reported 07/05/2021 Flu (Generic) 09/19/2022,08/02/2021,09/23/2020 Flu Vaccine 3 Yrs> Im 08/23/2020 Hepatitis B > 19yrs 02/21/2022,01/17/2022 Influenza (> 6 Months) 08/23/2020 Influenza Flu (PT Reported) 07/28/2023 Influenza Vaccine-preservati ve Free-quadrivalent 4 Years 07/28/2023 Influenza Vaccine-quadrivale nt 4 Years Plus 08/02/2021 PPD-RBMG 06/01/2015 Tdap 01/09/2019,06/01/2015 Family History Medical History Relation Name Comments Hypertension Father Esophageal canc er, at 73 Hypothyroidism Maternal Grandmother CA Breast Negative Hx Relation Name Status Comments Father Maternal [...] Sign Reading Time Taken Comments Blood Pressure 104/73 06/19/2024 9:08 AM EDT Pulse 84 06/19/2024 9:08 AM EDT Temperature 36.7 C (98 F) 06/19/2024 9:08 AM EDT Respiratory Rate 16 06/03/2024 10:07 AM EDT Oxygen Saturation 97% 04/25/2024 1:55 PM EDT Inhaled Oxygen Concentration - - Weight 74.8 kg (165 lb) 06/19/2024 9:08 AM EDT Height 162.6 cm (5' 4 ) 06/19/2024 9:08 AM EDT Body Mass Index 28.32 06/19/2024 9:08 AM EDT Plan of Treatment Health Maintenance Due Date Last Done Comments SHINGLES VACCINE (1 of 2) 2017 MAMMOGRAM 07/20/2024 07/20/2023 (Exte rnal Completion), 02/27/2019, 07/26/2017, Additional history exists COLON CANCER SCREEN WITH STO OL CARD 08/28/2024 08/28/2023, 08/15/2023 (Completed) BMI CHECK/ADVISE 11/06/2024 08/20/2024, , 03/04/2024, Additional history exists Covid-19 Vaccine (2022-12 4 season) 2025 02/02/2022, 07/05/2021, 06/24/2021, Additional history exists INFLUENZA (#1) 2025 07/28/2023, 07/08, 08/02/2021, Additional history exists BASELINE HEALTH EXAM 40-64 11/09/202511/09, 11/09/2023, 01/13/2022, Additional history exists CERVICAL CANCER SCREENING 07/20/20262022 (External Completion) CHOLESTEROL SCREENING 11/09/2028 11/09/2023 , 01/13/2022, 01/09/2019, Additional history exists DTAP/TDAP/TD (3 - Td or Tdap) 01/09/2029 01/09/2019, 06/01/2015 PNEUMOCOCCAL VACCINE FOR HIG H RISK PATIENTS (#1) 2032 HEPATITIS C SCREENING Completed 01/13/2022 , 04/24/2020, 10/31/2019 Care Teams Sheet Rock Installer Relationship Specialty Start Date End Date Tasia Ash MD [address] [place] [address] PCP - General Internal Medicine 04/27/23 Jewel Manzano MD [address] [place] [address] ORTHOPEDIC SURGERY 07/14/23 [facility] Specialist Rheumatology 11/09/23 Trivedi Specialist PAIN MANAGEMENT 12/18/23 [place] Specialist Rheumatology 06/03/24 [facility] neurology Specialist Neurology 06/03/24 [facility] Specialist Optometry 06/03/24
--- OUTSIDE RECORDS SUMMARY | 2025-10-02 17:06 | XMS_ITS | Encounter Summary ---
Author Organization [facility] Address [address] [place] [address] Care Team Providers Care Technical Operations Specialist Name Role Phone Tasia Ash MD Primary Care Provider [phone] Jewel Manzano MD Unavailable [phone] Jalil Paulson MD Unavailable Unavailable Encounter Details Date Type Department Care Team Description 03/26/2024 Pt. Non Urgent Medic al Question Adult Medicine - [place] [address] [place] [address] Tasia Ash MD [address] [place] [address] Social History Tobacco Use Types Packs/Day Years [...] Lab, concerning some blood work that my director of land acquisition faxed over from [place]. I???ve been trying to call the lab [...] filedocumented in this encounter Care Teams Technical Operations Specialist Relationship Specialty Start Date End Date Tasia Ash MD [address] [place] [address] PCP - General Internal Medicine 04/27/23 Jewel Manzano MD [address] [address] ORTHOPEDIC SURGERY 07/14/23 Jalil Paulson MD [address] [address] Ophthalmology 11/09/23 06/02/24 [facility] Specialist Rheumatology 11/09/23 Trivedi Specialist PAIN MANAGEMENT 12/18/23 [place] Specialist Rheumatology 06/03/24 [facility] neurology Specialist Neurology 06/03/24 [facility] Specialist Optometry 06/03/24 documented as of this encounter
--- OUTSIDE RECORDS SUMMARY | 2025-10-02 17:06 | XMS_ITS | Encounter Summary ---
Author Organization [facility] Address [address] [place] [address] Care Team Providers Care Soda Dialyzer Name Role Phone Monty Allan MD Primary Care Provider [phone] [facility], Pcp [facility] Tasia Rush MD Primary Care Provider [phone] Jewel Manzano MD Unavailable [phone] Jalil Paulson MD Unavailable Unavailable Encounter Details Date Type Department Care Team Description 07/07/2016 Transfer Records Medical Records [address] [place] [address] Abstract, Provider Social History Tobacco Use Types [...] on filedocumented in this encounter Care Teams Soda Dialyzer Relationship Specialty Start Date End Date Monty Allan MD [address] [place] [address] PCP - General Internal Medicine 02/16/15 07/12/22 [facility], Pcp [address] [place], [place] PCP - General Internal Medicine 07/13/22 04/26/23 Tasia Ash MD [address] [place] [address] PCP - General Internal Medicine 04/27/23 Jewel Manzano MD [address] [address] ORTHOPEDIC SURGERY 07/14/23 Jalil Paulson MD [address] [address] Ophthalmology 11/09/23 06/02/24 [facility] Specialist Rheumatology 07/14/23 11/08/23 [facility] Specialist Rheumatology 11/09/23 Trivedi Specialist PAIN MANAGEMENT 12/18/23 [place] Specialist Rheumatology 06/03/24 [facility] neurology Specialist Neurology 06/03/24 [facility] Specialist Optometry 06/03/24 documented as of this encounter
--- OUTSIDE RECORDS SUMMARY | 2025-10-02 17:06 | XMS_ITS | Encounter Summary ---
Author Organization [facility] Address [address] [place] [address] Care Team Providers Care Pastry Baker Name Role Phone Monty Allan MD Primary Care Provider [phone] [facility], Pcp Primary Care Provider Tasia Stallings MD Primary Care Provider [phone] Jewel Manzano MD Unavailable [phone] Jalil Paulson MD Unavailable Unavailable Encounter Details Date Type Department Care Team Description 04/15/2020 Release of Information Medical Records [address] [place] [id number] Abstract, Provider Social History Tobacco Use Types [...] on filedocumented in this encounter Care Teams Pastry Baker Relationship Specialty Start Date End Date Monty Allan MD [address] [place] [address] PCP - General Internal Medicine 02/16/15 07/12/22 [facility], Pcp [address] [place], [place] PCP - General Internal Medicine 07/13/22 04/26/23 Tasia Ash MD [address] [place] [address] PCP - General Internal Medicine 04/27/23 Jewel Manzano MD 175 [facility] [address] [place] [address] ORTHOPEDIC SURGERY 07/14/23 Jalil Paulson MD [address] [address] Ophthalmology 11/09/23 06/02/24 [facility] Specialist Rheumatology 07/14/23 11/08/23 [facility] Specialist Rheumatology 11/09/23 Trivedi Specialist PAIN MANAGEMENT 12/18/23 [place] Specialist Rheumatology 06/03/24 [facility] neurology Specialist Neurology 06/03/24 [facility] Specialist Optometry 06/03/24 documented as of this encounter
--- OUTSIDE RECORDS SUMMARY | 2025-10-02 17:06 | XMS_ITS | Encounter Summary ---
Author Organization [facility] Address [address] [place] [address] Care Team Providers Care Warehouse Production Worker Name Role Phone Monty Allan MD Primary Care Provider [phone] [facility], Pcp Primary Care Provider Tasia Stallings MD Primary Care Provider [phone] Jewel Manzano MD Unavailable [phone] Jalil Paulson MD Unavailable Unavailable Encounter Details Date Type Department Care Team Description 05/01/2020 Release of Information Medical Records [address] [place] [id number] Abstract, Provider Social History Tobacco Use Types [...] on filedocumented in this encounter Care Teams Warehouse Production Worker Relationship Specialty Start Date End Date Monty Allan MD [address] [place] [address] PCP - General Internal Medicine 02/16/15 07/12/22 [facility], Pcp [address] [place], [place] PCP - General Internal Medicine 07/13/22 04/26/23 Tasia Ash MD [address] [place] [address] PCP - General Internal Medicine 04/27/23 Jewel Manzano MD 175 [facility] [address] [place] [address] ORTHOPEDIC SURGERY 07/14/23 Jalil Paulson MD [address] [address] Ophthalmology 11/09/23 06/02/24 [facility] Specialist Rheumatology 07/14/23 11/08/23 [facility] Specialist Rheumatology 11/09/23 Trivedi Specialist PAIN MANAGEMENT 12/18/23 [place] Specialist Rheumatology 06/03/24 [facility] neurology Specialist Neurology 06/03/24 [facility] Specialist Optometry 06/03/24 documented as of this encounter
[2025-10-02 17:07] LABS: MANUAL DIFF FLAG NO
[2025-10-02 17:10] LABS: Hematocrit 43.8 % (37.0-47.0); Hemoglobin 14.9 g/dl (12.0-16.0); Imm Gran Abs Auto 0.03 X10*3/uL (0.00-0.03); Imm Gran Pct Auto 0.3 % (0.0-0.4); Lymphocytes Absolute Auto 3.2 X10*3/uL (1.2-4.9); Mean Corpuscular HGB Conc 34.0 g/dl (31.0-35.0); Mean Corpuscular Hemoglobin 32.3 pg (27.0-33.0); Mean Corpuscular Volume 95.0 fL (80.0-98.0); NRBC Abs Auto 0.000 X10*3/uL (0.0-0.012); NRBC Pct Auto 0.0 /100WBC (0.0-0.2); Platelet Count 349 X10*3/uL (160-400); Red Blood Count 4.61 X10*6/uL (4.20-5.50); White Blood Count 10.5 X10*3/uL (4.8-10.8)
--- NOTE | 2025-10-02 17:23 | PC.NURSE ---
Pt comes to ED today with complaint of ongoing abd pain. She reports pain is chronic and feels like her ribs are cutting into her body. She endorse vague SI in triage and makes statement of being unable to go on in the exam room. She also make contradicting statements that she would have hurt herself in the car if she really wanted to. Pt bursts into tears intermittently but is redirectable. A&Ox3 Pt changed into hospital clothing. 1:[address] 20g to LAC Blood work send to lab.
[2025-10-02 17:25] LABS: Alanine Aminotransferase 21 U/L (0-31); Albumin Level 4.7 g/dL (3.5-5.0); Alkaline Phosphatase 101 U/L (39-117); Anion Gap 15 (12-20); Aspartate Amino Transferase 25 U/L (5-31); Blood Urea Nitrogen 5 mg/dL (9-16); Calcium 9.4 mg/dL (8.4-10.2); Carbon Dioxide 23 mmol/L (22-29); Chloride 110 mmol/L (96-108); Creatinine Clr Calc Pharmacy 77.7; Estimated Glomerular Filt Rate > 60; Potassium 3.7 mmol/L (3.3-5.1); Sodium 144 mmol/L (135-145); Total Protein 7.4 g/dL (6.5-8.0)
[2025-10-02 18:43] VITALS: RESP 20
[2025-10-02] MEDS: Lactated Ringers 1,000 ML 999 ML IV (18:43)
--- NOTE | 2025-10-02 22:27 | MHC.CARE ---
CARE Team requested to consult on a case to determine if patient required a full BH assessment after making vague SI statements in the context of abdominal pain. CARE Team met with patient who denied AVH/HI/SI as well as the statements originally reported. After speaking with her ED providers and confirming the statements that were made, CARE Team clinician again asked patient about the reported statements. Patient eventually acknowledged she made the comment, but it wasn't because she was suicidal, but only in attempt to get the staff to understand if she wanted to harm herself, she would have done so prior to arriving to the ED. Patient then stated she mentioned she would have gone into the bautista or something like that if she was suicidal. She denies a history of any prior suicide attempts or intent to harm herself. In further assessing the patient, it appears the statements were made in an attempt to obtain the specific medications she was requesting to manage her pain. Patient reports she is currently connected to a therapist and a psychologist for PTSD and depression treatment. She acknowledges struggling a little more due to the pain as she has not been able to engage in activities with her grandchildren. Patient does not present with any safety concerns at this time.
--- NOTE | 2025-10-02 22:56 | PC.NURSE ---
Assumed care of patient at 1899. patient yelling from the stretcher to sitter that she wants something for pin. Pt reporting pain and asked if there was any improvement from medicine because pt had received morphine and toradol prior. Pt very upset yelling at this RN that the medicine is not working. This RN attempting to offer mag citrate that provider ordered for constipation and patient refused, wanting to see provider. Provider Lucita came in room and pt was then yelling at provider that the pain she is having is not her chronic pain. Provider explained again the importance of taking the mag citrate and how that could help her move her bowels which could be the reason she is experiencing the pain. Pt then agreed to take the medication. Pt very rude throughout interaction. 2129 Pt again reporting abdominal pain, yelling at this RN. This RN explained to patient that the provider is the one who orders medications and I could ask her for something. Pt yelling she does not want anymore medications. Pt yelling at t/w that she wants to leave, she did not want to be in this hospital that she's never left her house and was in more pain at the hospital. T/w spoke with provider and updated on what was happening. Virgen from Care team in to see patient after cleared medically by Lucita. Pt denies any SI, denies making any statements to staff. Pt cleared by care team and ready for discharge. 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
[2025-10-02 23:13] VITALS: BP 00/00; PULSE 0; RESP 16; TEMP -17.7; TEMP 0
== END 2025-10-02 23:16 | disposition home or self-care (01) ==
PROVIDERS: Registered Nurse Emergency; Emergency Provider Emergency Medicine
DX: R10.13 Epigastric pain (principal); K59.00 Constipation, unspecified; R45.851 Suicidal ideations; M05.9 Rheumatoid arthritis with rheumatoid factor, unspecified; Z86.19 Personal history of other infectious and parasitic diseases; Z88.8 Allergy status to other drugs, medicaments and biological substances
CPT/HCPCS: 36415; 74018; 80053; 80307; 85025; 96361; 96374; 96375; 99285; J1885; J2270; J7120

== ENCOUNTER → 2025-10-02 17:46 | Outpatient (BNV) | payer OTHER, SELFPAY | PROVIDERS: Emergency Provider Emergency Medicine; Visit Provider Radiology Diagnostic Radiology | DX: K59.00 Constipation, unspecified (principal) | CPT/HCPCS: 74018 ==

== ENCOUNTER 2025-10-07 13:44 | Outpatient (AMB) | payer OTHER, SELFPAY ==
--- OUTSIDE RECORDS SUMMARY | 2024-08-06 07:23 | XMS_ITS | Encounter Summary ---
Author Organization [facility] Address [address] [place] [address] Care Team Providers Care Public Address System Installer Name Role Phone Unavailable Primary Care Provider Unavailabl e Encounter Details Date Type Department Care Team (Late st Contact Info) Description 08/06/2024 8:23 AM EDT Hospital Encounter TH HISTORIC ENCOUNTERS EASTERN CONVERSION ONLY Tutu Trivedi MD [address] [place] [address] Social History Tobacco Use Types Packs/Day Years [...] Date of Assessment Author No Risk Indicated 10/06/2025 2:34 PM EST Hever Dejesus RN * [place] Suicide Severity Rating Scale (Screener/Recent Self-Report) Question Answer Date of Assessment Author 1. Wish to be (Past 1 Month) No 025 2:34 PM EST Hever Dejesus RN 2. Non-Specific Active Suici beth Thoughts (Past 1 Month) No 10/06/2025 2:34 PM EST Hever Dejesus RN 6. Suicidal Behavior (Lifetime) No 5 2:34 PM EST Hever Dejesus RN 6. Suicidal Behavior (3 Months) No 5 12:00 PM EDT Indigo Ríos RN documented [...] eventual strength) 09/11 Ongoing 2. Dominant R garden implement mechanic strength at least 35# (vs 20initial, vs [...]
--- OUTSIDE RECORDS SUMMARY | 2025-10-06 17:46 | XMS_ITS | Encounter Summary ---
Author Organization [facility] Address [address] [place] [address] Care Team Providers Care Editor Publications Name Role Phone Araceli Augustin Primary Care Provider + Reason for Visit * Reason Comments Weakness - Generalized Encounter Details Date Type Department Care Team (Late st Contact Info) Description 10/06/2025 5:46 PM EST - 10/06/2025 8:59 PM EST Emergency [facility] Emergency [address] [place] [address] Jose Marmolejo MD [address] [place] [address] Viral syndrome (Primary Dx); Right upper quadrant abdominal pain Discharge Disposition: Home or Self Care Social [...] Sign Reading Time Taken Comments Blood Pressure 114/91 10/06/2025 5:59 PM EST Pulse 85 10/06/2025 5:59 PM EST Temperature 36.4 C (97.5 F) 10/06/2025 2:35 PM EST Respiratory Rate 18 10/06/2025 5:59 PM EST Oxygen Saturation 98% 10/06/2025 5:59 PM EST Inhaled Oxygen Concentration - - Weight 72.6 kg (160 lb) 10/06/2025 2:35 PM EST Height 162.6 cm (5' 4 ) 10/06/2025 2:35 PM EST Body Mass Index 27.46 10/06/2025 2:35 PM EST documented in this encounter Functional [...] 4:01 PM EDT Karin Morton RN * Calculated C-SSRS Risk Score (Lifetime/Recent) Answer Date of Assessment Author No Risk Indicated 10/06/2025 2:34 PM Hever Crawford RN * [place] Suicide Severity Rating Scale (Screener/Recent Self-Report) Question Answer Date of Assessment Author 1. Wish to be (Past 1 Month) No 025 2:34 PM Hever Crawford RN 2. Non-Specific Active Suici beth Thoughts (Past 1 Month) No 10/06/2025 2:34 PM Hever Crawford RN 6. Suicidal Behavior (Lifetime) No 5 2:34 PM Hever Crawford RN documented as of this encounter Mental Status * Because of a physical, mental, or emotional condition, do you have serious difficulty concentrating, remembering, or making decisions? (5 years old or older) Answer Entry Date Author No 07/08/2025 4:01 PM EDT Karin Morton RN documented in this encounter Discharge Instructions * Discharge Instructions* Jose Marmolejo MD - 10/06/2025 8:26 PM EST DIAGNOSIS / RESULTS / PROCEDURES (what was done): You came to the ED for right sided abdominal/flank pain. Your blood work and a CAT scan were normal. We are unsure the exact cause of your pain, but is safe you to be discharged. INSTRUCTIONS (what you need to do): Call pain medicine tomorrow to discuss when you should be seen. Your doctor may want to arrange follow up for your visit today, or may ask to see you at your next scheduled visit. If your symptoms get worse, or you have any new or different concerns, return to the ED immediately. MEDICATIONS (what you need to take): Pregabalin 25 mg daily documented in this encounter Medications at Time [...] by mouth 1 (one) time each day. diazePAM (VALIUM) 5 mg tablet Take 1 tablet (5 mg total) by mouth 2 (two) times a day if needed. 07/10/2025 docusate sodium (COLACE) 100 mg capsule if needed. 03/25/2025 lactulose (CHRONULAC) solution Take 15 mL (10 g total) by mouth 2 (two) times a day. 2700 mL 09/01/2025 11/30/2025 pregabalin (LYRICA) 25 mg capsule Take 1 capsule (25 mg total) by mouth 1 (one) time each day for 14 days. Max Daily Amount: 25 mg 14 capsule 10/06/2025 10/20/2025 documented as of this encounter Ordered Prescriptions Prescription Sig Dispense Quantity Refills Last Filled Start Date End Date pregabalin (LYRICA) 25 mg capsule Take 1 capsule (25 mg total) by mouth 1 (one) time each day for 14 days. Max Daily Amount: 25 mg 14 capsule 10/06/2025 documented in this encounter Discharge Disposition Disposition Code Departure Means Destination Comment s Home or Self Care Patient alert and oriented at time of discharge. Patient informed to return to ED with worsening symptoms. Patient informed to follow up with PCP. Patient's medications reviewed and sent to preferred pharmacy. Patient left with even and steady gait. documented in this encounter Progress Notes * Hever Dejesus RN - 10/06/2025 2:34 PM EST Patient recently dx with the flu. States she has stomach pains and nausea and generalized weakness . * Jose Marmolejo MD - 10/06/2025 2:29 PM EST Emergency Medicine Note Patient Name: María Phillips Initial Evaluation: 10/06/2025 : 1965 Patient's PCP: TL Denis Emergency Physician: Jose Marmolejo MD History of Present Illness Chief Complaint: Chief Complaint Patient presents with Weakness - Generalized HPI: 60-year-old female recently diagnosed with flu presents to the ED for right upper quadrant/right flank pain, generalized weakness/fatigue, decreased p.o. intake. Patient is concerned she is dehydrated, has not urinated in over 8 hours. Also endorsing nausea but no vomiting. Previous History Medical History[1] Surgical History[2] Social History[3] Family History[4] is allergic to erythromycin, infliximab, sertraline, and clindamycin. Medications Ordered Prior to Encounter[5] Physical Exam ED Triage Vitals Temp Heart Rate Resp BP 10/06/25 1435 10/06/25 1435 10/06/25 1435 10/06/25 1435 36.4 ??C (97.5 ??F) 88 20 113/87 SpO2 Temp src Heart Rate Source Patient Position 10/06/25 1435 -- 10/06/25 1759 10/06/25 1759 99 % Monitor Lying BP Location FiO2 (%) 10/06/25 1759 -- Left arm GENERAL: Well-Appearing SKIN: Warm, dry, normal for ethnicity. No rashes. HEENT: Normal sclera, noninjected nonicteric CHEST: Normal peripheral perfusion, no edema PULMONARY: Normal respiratory effort ABDOMINAL: Nondistended, soft, right upper quadrant tenderness NEURO: Alert and oriented, moving all extremities equally PSYCHIATRIC: Normal affect, fluid speech, good eye contact and appropriate demeanor. Results Labs Reviewed CBC WITH AUTO DIFFERENTIAL - Abnormal Result Value WBC 8.6 RBC 4.60 Hemoglobin 15.0 Hematocrit 43.8 MCV 95.2 MCH 32.6 (*) MCHC 34.2 RDW 13.4 Platelets 350 MPV 9.4 NRBC 0.0 NRBC Absolute 0.00 Neutrophils Relative 59.5 Lymphocytes Relative 31.5 Monocytes Relative 7.1 Eosinophils Relative 1.3 Basophils Relative 0.3 Immature Granulocytes Relative 0.3 Neutrophils Absolute 5.14 Lymphocytes Absolute 2.72 Monocytes Absolute 0.61 Eosinophils Absolute 0.11 Basophils Absolute 0.03 Immature Granulocytes Absolute 0.03 COMPREHENSIVE METABOLIC PANEL - Normal Sodium 141 Potassium 4.5 Chloride 108 CO2 26 Anion Gap 7 Glucose 78 BUN 7 Creatinine 0.85 eGFR 80 BUN/Creatinine Ratio 8.2 Calcium 9.4 AST (SGOT) 24 ALT (SGPT) 30 Alkaline Phosphatase 105 Total Protein 6.9 Albumin 4.3 Total Bilirubin 0.4 URINALYSIS WITH REFLEX MICROSCOPIC - Normal Specific [place] Urine 1.013 pH, Urine 6.0 Leukocytes, Urine Negative Nitrite, Urine Negative Protein, Urine Negative Glucose, Urine Negative Ketones, Urine Negative Urobilinogen, Urine 0.2 Bilirubin, Urine Negative Blood, Urine Negative CBC AND DIFFERENTIAL Narrative: The following orders were created for panel order CBC and differential. Procedure Abnormality Status --------- ------ CBC auto differential[[id number]] Abnormal Final result Please view results for these tests on the individual orders. URINALYSIS WITH REFLEX MICROSCOPIC Narrative: The following orders were created for panel order Urinalysis with reflex microscopic ([id number]). Procedure Abnormality Status --------- ------ Urinalysis with reflex ...[[id number]] Normal Final result Please view results for these tests on the individual orders. Abnormal Labs Reviewed CBC WITH AUTO DIFFERENTIAL - Abnormal; Notable for the following components: Result Value MCH 32.6 (*) All other components within normal limits CT Abdomen Pelvis w Contrast Final Result No acute findings. This document has been electronically signed by: Alexis Gant MD on 10/06/2025 20:07:36 XR Chest 2 Views (Results Pending) I have discussed the incidental/abnormal imaging and/or lab abnormalities with the patient and haveinstructed them the need for further evaluation and workup with their primary care doctor. Medical Decision Making Differential Diagnosis: Influenza, viral syndrome, biliary colic, pyelonephritis, UTI, renal colic MDM: 60-year-old female recently found to be flu positive presents for generalized weakness, decreased urinary output, and right upper quadrant/right flank pain. Likely viral syndrome, possibly dehydrated, fluids ordered. Low suspicion for UTI or pyelonephritis given lack of urinary symptoms, evaluate UA. With regard to the right upper quadrant and right flank pain, given her tenderness on exam differential includes biliary colic or renal colic evaluate CT abdomen. Clinical Impression: Viral syndrome, abdominal pain SEPSIS Exemption: [ x ] It is unlikely this patient has sepsis at the time of my evaluation. Medications acetaminophen (TYLENOL) tablet 1,000 mg (1,000 mg oral Not Given 10/06/251818) ondansetron (PF) (ZOFRAN) injection 8 mg (8 mg intravenous Not Given 10/06/251814) lactated Ringer's bolus 2,000 mL (2,000 mL intravenous New Bag 10/06/251814) ketorolac (TORADOL) injection 15 mg (15 mg intravenous Given 10/06/251814) sodium chloride 0.9 % flush 10 mL (10 mL intravenous Given 10/06/251935) iopamidoL (ISOVUE-370) 370 mg iodine /mL (76 %) injection 90 mL (90 mL intravenous Given 10/06/251935) ED Course as of 10/06/252026Oct 06, 2025 1751 XR Chest 2 Views My independent review and interpretation of chest x-ray: No pneumonia or pneumothorax, no consolidation or infiltrate. [MG] 1914 Labs showed no leukocytosis or anemia, normal platelets. Normal electrolytes renal function LFTs. UA negative. CT pending. [MG] 2025 CT abdomen is negative. 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 During these pain flares, it is extremely difficult for her to find relief.She is wondering if there could be a neuropathic component to the pain, she has previously tried gabapentin and would like to try Lyrica, we will discharge the patient with a short course of the low-dose and she will follow-up with pain medicine. [MG] ED Course User Index [MG] Jose Marmolejo MD Clinical Impressions as of 10/06/252026 Viral syndrome Right upper quadrant abdominal pain Procedures Procedures Diagnosis 1. Viral syndrome 2. Right upper quadrant abdominal pain Disposition Discharge ED Prescriptions Medication Sig Dispense Start Date End Date Auth. Provider pregabalin (LYRICA) 25 mg capsule Take 1 capsule (25 mg total) by mouth 1 (one) time each day for 14 days. Max Daily Amount: 25 mg 14 capsule 10/06/2025 10/20/2025 MD Jose Beltrán MD 10/06/251814 [1] Past Medical History: Diagnosis Date Abdominal pain Anxiety Treated with Klonopin in the past. Does not want to have narcotics or addictions. Carpal tunnel syndrome 01/23/202001/2020 steroid injection left, endoscopic release right Change in bowel habits Decreased appetite Depressive disorder Epigastric pain GERD (gastroesophageal reflux disease) Globus sensation Rock's disease History of actinic keratoses 03/19/2019 Actinic keratoses 03/24 right cheek (lichenoid) Joint pain Post-traumatic osteoarthritis of left knee 10/03/2023 Rheumatoid arthritis (CMS/HCC V24, CMS/HCC V28) 12/25/2020 Throat pain Thyroid nodule 07/05/2021 US 06/2021 FNA pending [2] Past Surgical History: Procedure Laterality Date BREAST BIOPSY Left 2015 b9 fibrous tissue BREAST SURGERY Left 2016 b9 fibrous tissue CARPAL TUNNEL RELEASE Right 01/20/2020 PROCEDURE: SD NEUROPLASTY &/TRANSPOS MEDIAN NRV CARPAL TUNNE CHOLECYSTECTOMY COLONOSCOPY EYE SURGERY 1974 HAND SURGERY Right 07/16/2025 Right distal radius core decompression for [place]'s HERNIA REPAIR 07/28/2018 Laparoscopic repair of an incarcerated incisional hernia; Dr. Keenan ORTHOPEDIC SURGERY 1995 Left ACL OTHER SURGICAL HISTORY 12/2017 Dr. 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 [facility] VENTRAL HERNIA REPAIR 03/25/2025 revision, mesh removed WRIST SURGERY Left 2021 scapholunate stablization [3] Social History Tobacco Use Smoking status: Some Days Current packs/day: 0.50 Average packs/day: 0.5 packs/day for 48.9 years (24.5 ttl pk-yrs) Types: Cigarettes Start date: 1976 Smokeless tobacco: Never Vaping Use Vaping status: Never Used Substance Use Topics Alcohol use: Yes Alcohol/week: 21.0 standard drinks of alcohol Types: 21 Glasses of wine per week Comment: socially Drug use: No [4] Family History Problem Relation Name Age of Onset Hypertension Father Esophageal cancer, at 73 Other (Other: Hypothyroidism) Maternal Grandmother Breast cancer Neg Hx [5] No current facility-administered medications on file prior [...] sodium (COLACE) 100 mg capsule if needed. lactulose (CHRONULAC) solution Take 15 mL (10 g total) by mouth 2 (two) times a day. 2700 mL 0 Jose Marmolejo MD 10/06/252026 documented in this encounter Plan of Treatment Not on file documented as of this encounter Goals Goal Patient Goal Type Associated Problems Recent Progress Patient-Stated? Author OT 6-8 visits General No change(2024 4:47 PM EST) No Nichelle Milian, OT Note: 1> Indep HEP (splint weaning, ROM, pain manage, eventual strength) 09/11 Ongoing 2. Dominant R gold cutter strength at least 35# (vs 20initial, vs [...] level 8/10 documented as of this encounter Procedures Procedure Name Priority Date/Time Associated Diagnosis Comments CT ABDOMEN PELVIS W CONTRAST STAT 10/06/2025 7:39 PM EST URINALYSIS WITH REFLEX MICROSCOPIC STAT 10/06/2025 6:26 PM EST URINALYSIS WITH REFLEX MICROSCOPIC STAT 10/06/2025 6:26 PM EST XR CHEST 2 VIEWS STAT 10/06/2025 5:38 PM EST CBC WITH AUTO DIFFERENTIAL STAT 10/06/2025 5:31 PM EST CBC AND DIFFERENTIAL STAT 10/06/2025 5:31 PM EST COMPREHENSIVE METABOLIC PANEL STAT 10/06/2025 5:31 PM EST documented in this encounter Results * CT Abdomen Pelvis w Contrast (10/06/2025 7:39 PM EST) Anatomical Region Laterality Modality Body Computed Tomogra phy 10/06/2025 8:07 PM EST Impressions 10/06/2025 8:07 PM EST No acute findings. This document has been electronically signed by: Alexis Gant MD on 10/06/2025 20:07:36 Narrative 10/06/2025 8:07 PM EST INDICATION: RUQ and righ flank pain CT abdomen and pelvis with contrast Comparison: CT/SR - CT ABD PEL W CONTRAST - 01/16/25 10:13 EDT Findings: The lung bases are clear. Mild centrilobular emphysema. 1 cm cyst in the left lobe of the liver. Focal fatty infiltration of the liver adjacent to the falciform ligament noted. Incidental note of 1.2 cm cyst in the left lobe of the liver. The adrenal glands, pancreas, spleen and kidneys No bowel obstruction, pneumoperitoneum, or pneumatosis. Pelvic contents unremarkable. Normal appendix. No acute fracture. Procedure Note Alexis Gant MD - 10/06/2025 INDICATION: RUQ and righ flank pain CT abdomen and pelvis with contrast Comparison: CT/SR - CT ABD PEL W CONTRAST - 01/16/25 10:13 EDT Findings: The lung bases are clear. Mild centrilobular emphysema. 1 cm cyst in the left lobe of the liver. Focal fatty infiltration of the liver adjacent to the falciform ligament noted. Incidental note of 1.2cm cyst in the left lobe of the liver. The adrenal glands, pancreas, spleen and kidneys No bowel obstruction, pneumoperitoneum, or pneumatosis. Pelvic contents unremarkable. Normal appendix. No acute fracture. IMPRESSION: No acute findings. This document has been electronically signed by: Alexis Gant MD on 10/06/2025 20:07:36 Jose Marmolejo MD IM CT PROCEDURES Final Result * Urinalysis with reflex microscopic (10/06/2025 6:26 PM EST) Specific [place] Urine 1.013 1.003 - 1.030 LAB URINALYSIS - AUTOMATED METHOD 10/06/2025 7:03 PM [facility] pH, Urine 6.0 5.0 - 8.0 pH LAB URINALYSIS - AUTOMATED METHOD 10/06/2025 7:03 PM [facility] Leukocytes, Urine Negative Negative LAB URINALYSIS - AUTOMATED METHOD 10/06/2025 7:03 PM [facility] Nitrite, Urine Negative Negative LAB URINALYSIS - AUTOMATED METHOD 10/06/2025 7:03 PM [facility] Protein, Urine Negative <=Trace mg/dL LAB URINALYSIS - AUTOMATED METHOD 10/06/2025 7:03 PM [facility] Glucose, Urine Negative Negative mg/dL LAB URINALYSIS - AUTOMATED METHOD 10/06/2025 7:03 PM [facility] Ketones, Urine Negative Negative mg/dL LAB URINALYSIS - AUTOMATED METHOD 10/06/2025 7:03 PM [facility] Urobilinogen, Urine 0.2 0.2 - 1.0 mg/dL LAB URINALYSIS - AUTOMATED METHOD 10/06/2025 7:03 PM [facility] Bilirubin, Urine Negative Negative LAB URINALYSIS - AUTOMATED METHOD 10/06/2025 7:03 PM [facility] Blood, Urine Negative Negative LAB URINALYSIS - AUTOMATED METHOD 10/06/2025 7:03 PM EST [facility] Urine Urine specimen obtained by clean catch procedure / Unknown Non-blood Collection / Unknown 10/06/2025 6:26 PM EST 10/06/2025 6:57 PM EST us Jose Marmolejo MD LAB URINE ORDERABLES Final Resu lt [facility]) [facility] [address] [place] [address], [place] [phone] * XR Chest 2 Views (10/06/2025 5:38 PM EST) Anatomical Region Laterality Modality Body Radiographic Krystyna ging 10/07/2025 8:47 AM EST Impressions 10/07/2025 8:48 AM EST Impression: Discoid atelectasis in the left lower lung, unchanged. Telerad TL ([id number]) -------- FINAL REPORT -------- Dictated By: Dayami Diehl Dictated Date: 10/07/2025 08:47 ET Assigned Physician: Dayami Diehl Reviewed and Electronically Signed By: Dayami Diehl Signed Date: 10/07/2025 08:48 ET Workstation ID: [id number] Transcribed By: Self Edit Transcribed Date: 10/07/2025 08:47 ET Narrative 10/07/2025 8:48 AM EST History: Dyspnea. Comparison: 05/15/25 Findings: PA and lateral views. The cardiomediastinal silhouette, hilar contours and pulmonary vascularity are within normal limits. Atherosclerotic calcification is seen in the aortic arch. Discoid atelectasis or scar is again seen in the left lower lung. The lungs are otherwise clear. The costophrenic angles are sharp. Cholecystectomy clips are noted. Procedure Note Dayami Diehl MD - 10/07/2025 History: Dyspnea. Comparison: 05/15/25 Findings: PA and lateral views. The cardiomediastinal silhouette, hilar contours andpulmonary vascularity are within normal limits. Atheroscleroticcalcification is seen in the aortic arch. Discoid atelectasis or scar isagain seen in the left lower lung. The lungs are otherwise clear. Thecostophrenic angles are sharp. Cholecystectomy clips are noted. IMPRESSION: Impression: Discoid atelectasis in the left lower lung, unchanged. Telerad TL ([id number]) -------- FINAL REPORT -------- Dictated By: Dayami Diehl Dictated Date: 10/07/2025 08:47 ET Assigned Physician: Dayami Diehl Reviewed and Electronically Signed By: Dayami Diehl Signed Date: 10/07/2025 08:48 ET Workstation ID: [id number] Transcribed By: Self Edit Transcribed Date: 10/07/2025 08:47 ET Irais BOOTHE IMG XR PROCEDURES Final Resu lt * (ABNORMAL) CBC auto differential (10/06/2025 5:31 PM EST) WBC 8.6 4.8 - 10.8 K/mcL LAB HEMETOLOGY METHOD 10/06/2025 6:35 PM [facility] RBC 4.60 3.80 - 4.80 M/mcL LAB HEMETOLOGY METHOD 10/06/2025 6:35 PM [facility] Hemoglobin 15.0 11.5 - 16.0 g/dL LAB HEMETOLOGY METHOD 10/06/2025 6:35 PM [facility] Hematocrit 43.8 35.0 - 47.0 % LAB HEMETOLOGY METHOD 10/06/2025 6:35 PM [facility] MCV 95.2 79.0 - 98.0 FL LAB HEMETOLOGY METHOD 10/06/2025 6:35 PM [facility] MCH 32.6(H) 27.0 - 32.0 pcg LAB HEMETOLOGY METHOD 10/06/2025 6:35 PM [facility] MCHC 34.2 32.0 - 37.0 g/dL LAB HEMETOLOGY METHOD 10/06/2025 6:35 PM [facility] RDW 13.4 11.0 - 15.0 % LAB HEMETOLOGY METHOD 10/06/2025 6:35 PM [facility] Platelets 350 130 - 400 K/mcL LAB HEMETOLOGY METHOD 10/06/2025 6:35 PM [facility] MPV 9.4 7.0 - 11.0 FL LAB HEMETOLOGY METHOD 10/06/2025 6:35 PM [facility] NRBC 0.0 <1.0 % LAB HEMETOLOGY METHOD 10/06/2025 6:35 PM [facility] NRBC Absolute 0.00 <0.10 K/mcL LAB HEMETOLOGY METHOD 10/06/2025 6:35 PM [facility] Neutrophils Relative 59.5 % LAB HEMETOLOGY METHOD 10/06/2025 6:35 PM [facility] Lymphocytes Relative 31.5 % LAB HEMETOLOGY METHOD 10/06/2025 6:35 PM [facility] Monocytes Relative 7.1 % LAB HEMETOLOGY METHOD 10/06/2025 6:35 PM [facility] Eosinophils Relative 1.3 % LAB HEMETOLOGY METHOD 10/06/2025 6:35 PM [facility] Basophils Relative 0.3 % LAB HEMETOLOGY METHOD 10/06/2025 6:35 PM [facility] Immature Granulocytes Relative 0.3 % LAB HEMETOLOGY METHOD 10/06/2025 6:35 PM [facility] Neutrophils Absolute 5.14 1.50 - 7.00 K/mcL LAB HEMETOLOGY METHOD 10/06/2025 6:35 PM [facility] Lymphocytes Absolute 2.72 1.00 - 5.00 K/mcL LAB HEMETOLOGY METHOD 10/06/2025 6:35 PM [facility] Monocytes Absolute 0.61 0.20 - 1.00 K/mcL LAB HEMETOLOGY METHOD 10/06/2025 6:35 PM EST [facility] Eosinophils Absolute 0.11 0.00 - 0.50 K/mcL LAB HEMETOLOGY METHOD 10/06/2025 6:35 PM EST [facility] Basophils Absolute 0.03 0.00 - 0.20 K/mcL LAB HEMETOLOGY METHOD 10/06/2025 6:35 PM EST [facility] Immature Granulocytes Absolute 0.03 0.00 - 0.03 K/mcL LAB HEMETOLOGY METHOD 10/06/2025 6:35 PM [facility] Blood Venous blood specimen / Unknown Venipuncture / Unknown 10/06/2025 5:31 PM EST 10/06/2025 6:25 PM EST Irais BOOTHE LAB BLOOD ORDERABLES Final R esult [facility] [address] [place] [address], * Comprehensive metabolic panel (10/06/2025 5:31 PM EST) Sodium 141 133 - 145 mmol/L 10/06/2025 7:05 PM [facility] Potassium 4.5 3.5 - 5.5 mmol/L 10/06/2025 7:05 PM [facility] Chloride 108 96 - 110 mmol/L 10/06/2025 7:05 PM [facility] CO2 26 21 - 32 mmol/L 10/06/2025 7:05 PM [facility] Anion Gap 7 3 - 11 10/06/2025 7:05 PM [facility] Glucose 78 70 - 100 mg/dL 10/06/2025 7:05 PM [facility] BUN 7 5 - 25 mg/dL 10/06/2025 7:05 PM [facility] Creatinine 0.85 0.50 - 1.10 mg/dL 10/06/2025 7:05 PM [facility] eGFR 80 >=60 mL/min/1. 73m2 10/06/2025 7:05 PM [facility] Comment:Calculation based on the Chronic Kidney Disease Epidemiology Collaboration (CKD-EPI) equation refit without adjustment for race. BUN/Creatinine Ratio 8.2 10/06/2025 7:05 PM [facility] Calcium 9.4 8.5 - 10.5 mg/dL 10/06/2025 7:05 PM [facility] AST (SGOT) 24 10 - 42 unit/L 10/06/2025 7:05 PM [facility] ALT (SGPT) 30 10 - 60 unit/L 10/06/2025 7:05 PM [facility] Alkaline Phosphatase 105 42 - 121 unit/L 10/06/2025 7:05 PM [facility] Total Protein 6.9 6.0 - 8.0 g/dL 10/06/2025 7:05 PM [facility] Albumin 4.3 3.2 - 5.0 g/dL 10/06/2025 7:05 PM [facility] Total Bilirubin 0.4 0.0 - 1.4 mg/dL 10/06/2025 7:05 PM [facility] Blood Venous blood specimen / Unknown Venipuncture / Unknown 10/06/2025 5:31 PM EST 10/06/2025 6:25 PM EST Irais BOOTHE LAB BLOOD ORDERABLES Final R esult [facility] [address] [place] [address], documented in this encounter Visit Diagnoses Diagnosis Viral syndrome- Primary Unspecified viral infection, in conditions classified elsewhere and of unspecified site Right upper quadrant abdominal pain documented in this encounter Administered Medications Inactive Administered Medications - up to 3 most recent administrations Medication Order MAR Action Action Date Dose Rate Site acetaminophen (TYLENOL) tablet 1,000 mg 1,000 mg, oral, Every 8 hours scheduled, First dose on Mon10/06/25 at 1756 iopamidoL (ISOVUE-370) 370 mg iodine /mL (76 %) injection 90 mL 90 mL, intravenous, Once in imaging, Starting on Mon10/06/25 at 1933, For 1 dose Given 10/06/2025 7:36 PM EST 90 mL ketorolac (TORADOL) injection 15 mg 15 mg, intravenous, Once, On Mon10/06/25 at 1756, For 1 dose Given 10/06/2025 6:15 PM EST 15 mg lactated Ringer's bolus 2,000 mL 2,000 mL, intravenous, Once, On Mon10/06/25 at 1756, For 1 dose New Bag 10/06/2025 6:15 PM EST 2,000 mL sodium chloride 0.9 % flush 10 mL 10 mL, intravenous, Once, On Mon10/06/25 at 1934, For 1 dose Given 10/06/2025 7:36 PM EST 10 mL documented in this encounter Active and Recently Administered Medications Times are shown in EST. Scheduled Medication Order 10/04/2025 10/05/2025 10/06/2025 acetaminophen (TYLENOL) tablet 1,000 mg 1,000 mg, oral, Every 8 hours scheduled, First dose on Mon10/06/25 at 1756 1819 (Not Given - Pr ovider: Nataly Mcqueen RN - Reason: Patient/Resident/Agent refused - education provided ) iopamidoL (ISOVUE-370) 370 mg iodine /mL (76 %) injection 90 mL (COMPLETED) 90 mL, intravenous, Once in imaging, Starting on Mon10/06/25 at 1933, For 1 dose 1936 (Given - Provid er: Ramona Pate) ketorolac (TORADOL) injection 15 mg (COMPLETED) 15 mg, intravenous, Once, On Mon10/06/25 at 1756, For 1 dose 1815 (Given - Provid er: Nataly Mcqueen RN) lactated Ringer's bolus 2,000 mL (COMPLETED) 2,000 mL, intravenous, Once, On Mon10/06/25 at 1756, For 1 dose 181 (New Bag - Prov ider: Nataly Mcqueen RN)2044 (Stopped - Provider: Hudson Price RN) ondansetron (PF) (ZOFRAN) injection 8 mg 8 mg, intravenous, Once, On Mon10/06/25 at 1756, For 1 dose 1814 (Not Given - Pr ovider: Nataly Mcqueen RN - Reason: Patient/Resident/Agent refused - education provided ) sodium chloride 0.9 % flush 10 mL (COMPLETED) 10 mL, intravenous, Once, On Mon10/06/25 at 1934, For 1 dose 193 (Given - Provid er: Ramona Pate) documented in this encounter Orders Medications Ordered That Kostas ht Not Have Been Administered Count Last Ordered Date First Ordered Date acetaminophen (TYLENOL) tablet 1,000 mg 1 1 12/07/2024 ondansetron (PF) (ZOFRAN) injection 8 mg 1 10/06/2025 documented in this encounter Care Teams Editor Publications Relationship Specialty Start Date End Date Araceli Augustin PA [address] [place] [phone] PCP - General 11/20/24 documented as of this encounter
[2025-10-07 13:47] VITALS: BP 110/80; PULSE 81; O2SAT 98; BMI 28.4
--- NOTE | 2025-10-07 13:47 | A.OFFVIS_ITS ---
Vital Signs 10/07/25 13:47 Height 5 ft 4 in Weight 165 lb 5.547 oz BMI 28.4 BP 110/80 Blood Pressure Location Rt brachial Position Sitting Pulse 81 Pulse Source Pulse Oximeter Pulse Oximetry (%) 98 Oxygen Delivery Method Room Air Intake Visit Reasons: review MRI results Intake Note: Patient presents today for wrist pain. Accompanied by: Self / Same As Patient Allergies erythromycin base Allergy (Verified 10/06/25 08:08) Hives etanercept (From Enbrel) Adverse Reaction (Intermediate, Verified 10/06/25 08:08) diverticulitis leflunomide Adverse Reaction (Intermediate, Verified 10/06/25 08:08) diverticulitis prednisone Adverse Reaction (Intermediate, Verified 10/06/25 08:08) Body pain gabapentin Adverse Reaction (Mild, Verified 10/06/25 08:08) tremors HPI HPI review MRI results: Details: left upper arm is in pain with arm shaking. She had shaking in the past but then it resolved. She had seen Neurology for it and shaking was attributed to gabapentin, which she has discontinued. Continues to experience rib pain. Feels bone in left wrist is coming out. She continues to have right wrist swelling and bilateral knee pain limiting her function. Morning stiffness is lasting all day. No recent infections. [facility] Medical History Dermatographia Helicobacter pylori (H. 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 Sacroiliac joint pain Tendonitis of ankle, right Surgical History H/O decompression of ulnar nerve History of surgery Social History Household Members: Spouse and Family Housing: House Alcohol intake: current Alcohol intake frequency: holidays/special occasions only Patient Tobacco Use Status: Current everyday Tobacco user Tobacco use type: Cigarette Cigarettes Per Day: 10 Years Smoked: 15 years e-Cigarette/Vaping Use: Never Used service: No Current occupational status: employed 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 Physical Exam Vital Signs: Last Vital Signs Pulse 81 10/07/25 13:47 BP 110/80 10/07/25 13:47 Pulse Ox 98 10/07/25 13:47 Oxygen Delivery Method Room Air 10/07/25 13:47 BMI result Body Mass Index 28.4 Const Other: General: Comfortable Skin: Dermatographia seen on legs MSK: Tender to palpate right wrist with synovitis present, tender right 2nd, 3rd and 5th MCP, and bilateral knees. Wrist flexion and extension of right wrist is limited. Rest of upper extremity range of motion is normal. Normal range of motion of lower extremities. No MTP tenderness. Results Reviewed Results Reviewed: COMPARISON: X-ray 04/11/2022 TECHNIQUE: MRI of the wrist without contrast is performed in a 1.5 Kylie high-field scanner. 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 Correlate with surgical history. T2 bright signal in the trapezoid, capitate, with enhancement.. No significant joint space narrowing or erosive changes is identified in the MCP, interphalangeal joints. No evidence of acute fracture. There appears to be synovial thickening and enhancement in the wrist joint. No significant effusion is seen. MUSCLE/TENDONS: Tendons intact. No appreciable tenosynovitis. LIGAMENTS: Limited evaluation of intrinsic ligaments of the wrist. No gross tear is identified of the scapholunate or lunotriquetral ligament. Limited evaluation of the TFCC. MEDIAN NERVE: Within normal limits Guyon's Canal: Unremarkable. MR/MR hand RT wo/w con IMPRESSION: 1. Abnormal bright T2/low T1 signal in the lunate. 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 Correlate with surgical history, correlate with x-ray. 2. Bony findings in the carpal bones, as detailed above. There is synovial prominence in the wrist joint. No significant wrist joint effusion is seen. These findings are nonspecific, could reflect sequela of degenerative changes, inflammatory arthropathy. 3. No significant arthropathy or erosive changes identified in the MCP, interphalangeal joints of the fingers. Ordering Physician: Joshua Castellanos MD Date of Service: 10/01/25 Procedure(s): MR hand RT wo/w con Accession Number(s): [id number] cc: Araceli Augustin PA-C; DUC MARQUIS MD; Joshua Castellanos MD~ Reason for Exam: M05.79 - Rheumatoid arthritis with rheumatoid factor of multiple sites w... EXAMINATION: MRI HAND WITHOUT AND WITH CONTRAST, RIGHT 10/01/2025 CLINICAL INFORMATION: Rheumatoid arthritis with rheumatoid factor. Patient reports pain, history of the lunate kind box syndrome decompression surgery 2 months ago COMPARISON: X-ray 04/11/2022 TECHNIQUE: MRI of the wrist without contrast is performed in a 1.5 Kylie high-field scanner. 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 Correlate with surgical history. T2 bright signal in the trapezoid, capitate, with enhancement.. No significant joint space narrowing or erosive changes is identified in the MCP, interphalangeal joints. No evidence of acute fracture. There appears to be synovial thickening and enhancement in the wrist joint. No significant effusion is seen. MUSCLE/TENDONS: Tendons intact. No appreciable tenosynovitis. LIGAMENTS: Limited evaluation of intrinsic ligaments of the wrist. No gross tear is identified of the scapholunate or lunotriquetral ligament. Limited evaluation of the TFCC. MEDIAN NERVE: Within normal limits Guyon's Canal: Unremarkable. MR/MR hand RT wo/w con IMPRESSION: 1. Abnormal bright T2/low T1 signal in the lunate. 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 Correlate with surgical history, correlate with x-ray. 2. Bony findings in the carpal bones, as detailed above. There is synovial prominence in the wrist joint. No significant wrist joint effusion is seen. These findings are nonspecific, could reflect sequela of degenerative changes, inflammatory arthropathy. 3. No significant arthropathy or erosive changes identified in the MCP, interphalangeal joints of the fingers. Electronically signed by: Will Pappas MD 10/03/2025 10:55 AM [facility] 09/27/2025 MR/MR knee LT wo/w con IMPRESSION: *Fraying/ill-defined tear of the anterior root/central anterior horn, and irregular tearing of the posterior root and central posterior horn of the lateral meniscus * Postsurgical changes from prior ACL reconstruction surgery. 1.8 cm cystic focus in the tibial tunnel. ACL graft signal could reflect degenerative signal. No ligament discontinuity/laxity seen. * Intermediate/low signal foci in the intercondylar region, including along the ACL graft. This could reflect arthrofibrosis. * Moderate tricompartment arthritis. * Small effusion. Mild synovitis. 7 mm loose body anteriorly. 09/27/2025 MR/MR knee RT wo/w con IMPRESSION: * Tear of the medial meniscal posterior body of the medial posterior horn. * Tear of the posterior root and central posterior horn of the lateral meniscus. * Tricompartment arthritis. Moderate medial compartment arthritis. No erosions. * Small effusion. Possible mild synovitis.. Small Burns's cyst. Assessment & Plan Assessment & Plan (1) Rheumatoid arthritis with positive rheumatoid factor: Comment: Inflammatory arthritis is uncontrolled. She has synovitis of right wrists on exam with multiple small tender joints of right hand and bilateral knees. Repeat inflammatory markers remain normal. MRI reveals synovial enhancement, synovial thickening and enhancement of the carpal bones of the right wrist, left knee mild synovitis and possible synovitis of right knee, which is consistent with inflammatory arthritis not being controlled. Right wrist and bilateral knees are the main joints where her pain is uncontrolled limiting her function and quality of life. Rib pain has been debilitating for patient. I expressed that rib pain is not typical component of rheumatoid arthritis. She is considering SSI, which I will support while we work together to control her inflammatory arthritis. We discussed next steps for treatment. DMARD therapy is indicated. In the past she had benefit in reducing her rib pain with 1 dose of Remicade. Remicade also caused muscle twitching in her extremities, which was tolerable after the infusion but she is willing to try it again. Remicade was not continued because at the time when she was being treated at [facility] she was found to have latent TB with TB test that was performed prior to starting Remicade but over looked. She did not contract latent TB after Remicade. She completed treatment for latent TB. I am comfortable with trying Remicade as I also have the ability to up titrate dose and changed schedule with goal of obtaining remission if she tolerates the infusion. She has failed multiple NSAIDs to control her pain (Celebrex, meloxicam, indomethacin). She has had side effects to prednisone and methylprednisolone, which I am avoiding. We can consider hydroxychloroquine in the future, which has a good safety profile. Rheumatology history: Seropositive. RF 113. CCP>250. Diagnosed October 2020. Methotrexate 10/25 -05/2021 -d/c due to LFT elevations. 05/2021 - Humira started - ?improvement. 08/2022 Humira stopped for wrist surgery. leflunomide 04/2023- 05/2024 DC due to diverticulitis. Enbrel 05/2023 DC 06/2023 due to diverticulitis. Remicade 04/2024 DC after 1 dose as patient had a positive QuantiFERON test that was tested prior to starting Remicade but patient noticed a positive TB test via patient portal access and alarmed her rheumatology team. Latent TB treatment with Rifampin completed 4 months tx on 09/11/2024. CXR 05/2024 no acute pulmonary process. CT chest 12/05/2024 reveals there are few small bilateral pulmonary nodules, subcentimeter (follow-up recommended in 6 months to document stability). She reports that she had tremors and felt unwell with nausea on Remicade but it was tolerable. History of intermittent hyperlipidemia. Prednisone causes myalgias. Methylprednisolone causes arthralgias. Meloxicam, Celebrex and indomethacin were ineffective. Orencia 04/17/2025 discontinued after 3 doses due to development of ecchymosis on her arms, which Dermatology attributes it to senile purpura that may be related to a combination of factors such as normal aging, chronic sun exposure and being on blood thinners post surgery. Avoid BRITNI inhibitors and Actemra due to her history of diverticulitis on background of diverticulosis. I am avoiding rituximab due to pretreatment methylprednisolone required to prevent infusion reaction to prevent an adverse reaction from methylprednisolone. Code(s): M05.9 - Rheumatoid arthritis with rheumatoid factor, unspecified Category: Medical Qualifiers: Rheumatoid arthritis location: multiple sites Qualified Code(s): M05.79 - Rheumatoid arthritis with rheumatoid factor of multiple sites without organ or systems involvement Plan: Remicade PA 3 milligram/kilogram with induction week 0, 2 and 6 then maintenance every 8 weeks Labs for drug monitoring due 1 month after starting Remicade with CBC, creatinine, ESR, CRP, AST and ALT Return to clinic in 3 months Orders: Referrals Orthopedics Referral S83.241A - Other tear of medial meniscus, current injury, right knee, initial encounter, S83.281A - Other tear of lateral meniscus, current injury, right knee, initial encounter, S83.282A - Other tear of lateral meniscus, current injury, left knee, initial encounter Infusion Center Notification M05.79 - Rheumatoid arthritis with rheumatoid factor of multiple sites without organ or systems involvement Coding Level of Care Code Est Pt Level 4 (75115) Complex visit Add On G2211 Diagnoses Rheumatoid arthritis involving multiple sites with positive rheumatoid factor M 05.79 Rheumatoid arthritis location: multiple sites
--- OUTSIDE RECORDS SUMMARY | 2025-10-07 15:47 | XMS_ITS | Encounter Summary ---
Author Organization [facility] Address [address] [place] [address] [place] [phone] Phone Care Team Providers Care Property Coordinator Name Role Phone Vee Allan MD Primary Care Pr ovider Encounter Details Date Type Department Care Team (Late st Contact Info) Description 10/08/2020 Ancillary Orders [facility] - Orthopaedics Outpatient Practice [address] [facility], 1st Floor, [address] [place] [address] Finn Bone MD [address] [place] [phone] [email or web address] Hand joint pain Social History Tobacco [...] hand documented in this encounter Care Teams Property Coordinator Relationship Specialty Start Date End Date Vee Allan MD [address] [place] [phone] PCP - General Internal Medicine 09/01/20 documented as of this encounter Additional Source Comments The information contained in this document represents components of the legal health record. It is not the complete legal health record.[facility]
--- OUTSIDE RECORDS SUMMARY | 2025-10-07 15:47 | XMS_ITS | Encounter Summary ---
Author Organization [facility] Address [address] [place] [address] Care Team Providers Care Product Analyst Name Role Phone Araceli Augustin Primary Care Provider + Reason for Visit * Reason Onset Date Comments consult 09/24/2025 Encounter Details Date Type Department Care Team ([facility] st Contact Info) Description 09/24/2025 Telephone Gastroenterology - [place] [address] [facility] 175 [facility] [address] [place] [address] Melba Bunn MD [address] [facility] [address] [place] [address] Social History Tobacco Use Types Packs/Day Years [...] 09/24/2025 11:14 AM EST Referral received from [facility] for epigastric abdominal pain. Reached out [...] eventual strength) 09/11 Ongoing 2. Dominant R betting agency counter clerk strength at least 35# (vs 20initial, vs [...] on filedocumented in this encounter Care Teams Product Analyst Relationship Specialty Start Date End Date Araceli Augustin PA [address] [place] [phone] PCP - General 11/20/24 documented as of this encounter
--- OUTSIDE RECORDS SUMMARY | 2025-10-07 15:47 | XMS_ITS | Encounter Summary ---
Author Organization [facility] Address [address] [place] [address] Care Team Providers Care Air Compressor Mechanic Name Role Phone Araceli Augustin Primary Care Provider + Encounter Details Date Type Department Care Team ([facility] st Contact Info) Description 08/06/2025 Results Follow-Up Gastroenterology - [place] 175 [facility] 175 [facility] [address] [place] [address] Gia Lance, NICOLE [address] [facility] [address] [place] [address] Social History Tobacco Use Types Packs/Day Years [...] 10/06/2025 2:34 PM Hever Crawford RN * [place] Suicide Severity Rating Scale (Screener/Recent Self-Report) Question Answer Date of Assessment Author 1. Wish to be (Past 1 Month) No 025 2:34 PM Hever Crawford RN 2. Non-Specific Active Suici beth Thoughts (Past 1 Month) No 10/06/2025 2:34 PM Hever Crawford RN 6. Suicidal Behavior (Lifetime) No 2:34 PM Hever Crawford RN documented as [...] eventual strength) 09/11 Ongoing 2. Dominant R thermal technician strength at least 35# (vs 20initial, [...] on filedocumented in this encounter Care Teams Air Compressor Mechanic Relationship Specialty Start Date End Date Araceli Augustin PA [address] [place] [phone] PCP - General 11/20/24 documented as of this encounter
--- OUTSIDE RECORDS SUMMARY | 2025-10-07 15:47 | XMS_ITS | Continuity of Care Document ---
Author Organization [facility] [address] [place] [address] Phone [phone] Care Team Providers Care Houseperson Name Role Phone Vee Queen M.D Care Team Informa tijolanta T Rail Turner [phone] Problems Active Problems Provider Date Anxiety Eric [...] Medications SIG Qnty Indications Ordering Provider Date Edamvxxuqmksq1rd Tablets 1 tabs by mouth at 11pm 1tabs Eric Shah M.D. 12/01/2022 [id number] Capsules Take 1 Capsule By Mouth 2 Times A Day Terence Olvera MD Pudchkpqzjmniihowq1k g TBPK follow package directions Unknown Vital Signs Date Vital Result Comment 12/01/2022 11:00am BP Systolic 130 mmHg BP Diastolic 70 mmHg Heart Rate 72 /min Height 64 inches 5'4 Weight 185.00 lb BMI (Body Mass Index) 31.8 kg/m2 Results Test Acquired Date Facility Test Result H/L Range N ote Cortisol 01/20/2023 [facility] Refer ce Lab Cortisol 0.6 g/dL 1 Cortisol 01/06/2023 [facility] Refer ce Lab Cortisol <pending> Cortisol 01/05/2023 [facility] Referen ce Lab Cortisol 5.3 g/dL 2 Free T4 01/05/2023 [facility] Referen ce Lab Free T4 0.98 ng/dL (0.70-1.80) T[facility] 0.52 uIU/mL (0.4-4.2) Free T4 01/04/2023 [facility] Referen ce Lab Free T4 <pending> TSH 01/04/2023 [facility] TSH <pending> 1 [...]
--- OUTSIDE RECORDS SUMMARY | 2025-10-07 15:47 | XMS_ITS | Clinical Summary ---
Author Organization [facility] Address [address] [place] [address] Care Team Providers Care Polystyrene Bead Molder Name Role Phone Vee Allan MD Primary [...] age to complete this topic Care Teams Polystyrene Bead Molder Relationship Specialty Start Date End Date Vee Allan MD PCP - General Internal Medicine 12/05/19
--- OUTSIDE RECORDS SUMMARY | 2025-10-07 15:47 | XMS_ITS | Clinical Summary ---
Author Organization [facility] Address [address] [place] [address] Phone Care Team Providers Care Pocket Cutter Name Role Phone Araceli Augustin Primary Care [...] day. 2700 mL 5 11/30/19 26 Active pregabalin (LYRICA) 25 mg capsule Take 1 capsule (25 mg total) by mouth 1 (one) time each day for 14 days. Max Daily Amount: 25 mg 14 capsule 5 10/20/20 25 Active esomeprazole (NexIUM) [address] capsule [...] back and legs. The lumbar CT from [facility] show degenerative disc disease but not stenosis. Her description of paresthesias and leg shaking raise concerns for stenosis. Her workup at the [facility] ER did not correlate with cauda equina syndrome. She is now awaiting a lumbar spine MRI at [place]. I be happy to review that once [...] this, is currently seeing 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 [facility], had injection in the right [...] Other specified anxiety disorders 02/09/2021 Rheumatoid arthritis ([facility] V24, [facility] V28) 12/25/2020 Carpal tunnel syndrome 01/23/2020 [...] Encounters Date Type Department Care Team Description 10/06/2025 5:46 PM EST - 10/06/2025 8:59 PM EST Emergency [facility] Emergency [address] [place] [phone] Jose Marmolejo MD Viral syndrome (Primary Dx); Right upper quadrant abdominal pain Discharge Disposition: Home or Self Care 09/24/2025 Telephone Gastroenterology [facility] 175 [facility] 175 [facility] 200 [place] [phone] Melba Bunn MD 09/15/2025 3:45 PM EST Office Visit Orthopedic Surgery [facility] 175 [facility] [address] [place] [phone] Bessy Mesa MD 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 (CMS/HCC V24, CMS/HCC V28) (Primary Dx) 09/15/2025 Telephone Orthopedic Surgery [facility] 250 175 [facility] 250 [place] [phone] Bessy Mesa MD 09/11/2025 12:30 PM EST Treatment [facility] Occupational Therapy [address] [phone] Nichelle Milian, OT 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) 09/11/2025 Telephone Orthopedic Surgery [facility] 250 175 [facility] [address] [place] [phone] Bessy Mesa MD 09/04/2025 12:30 PM EDT Treatment [facility] Occupational Therapy [address] [phone] Shanell Bowen COTA/Ulices 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) 08/28/2025 1:30 PM EDT Treatment [facility] Occupational Therapy 175 [facility] 350 [place] [phone] Nichelle Milian, OT 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) 08/21/2025 12:00 PM EDT Evaluation [facility] Occupational Therapy 175 [facility] [address] [place] [phone] Nichelle Milian, OT 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) 08/14/2025 3:30 PM EDT Office Visit Orthopedic Surgery [facility] 250 175 [facility] [address] [place] [phone] Von Mcclure MD Knee pain (Primary Dx); Post-traumatic osteoarthritis of left knee; Primary osteoarthritis of right knee 08/13/2025 Telephone Gastroenterology [facility] 175 [facility] 175 [facility] 200 [place] [phone] Gia Lance NP 08/12/2025 3:45 PM EDT Office Visit Orthopedic Surgery [facility] 175 [facility] [address] [place] [phone] Bessy Mesa MD Wrist pain (Primary Dx); Osteochondrosis of lunate of right wrist; Surgery follow-up 08/06/2025 [facility] 175 [facility] [address] [place] [address] Gia Lance NP 08/05/2025 Telephone Orthopedic Surgery [facility] [address] [phone] Von Mcclure MD 08/04/2025 Telephone Orthopedic Surgery [facility] 250 175 [facility] [address] [place] [phone] Bessy Mesa MD 07/29/2025 3:45 PM EDT Office Visit Orthopedic Surgery [facility] 175 [facility] [address] [place] [phone] Bessy Mesa MD Osteochondrosis of lunate of right wrist (Primary Dx); Surgery follow-up 07/29/2025 Telephone Orthopedic Surgery - [place] 250 175 [facility] [address] [place] [phone] Von Mcclure MD 07/28/2025 2:40 PM EDT Office Visit Gastroenterology [facility] 175 [facility] 175 [facility] [address] [place] [phone] Gia Lance NP Erosive gastropathy (Primary Dx); Abdominal pain, chronic, right upper quadrant; History of Helicobacter pylori infection; Esophageal dysmotility; Tobacco use disorder 07/24/2025 8:40 AM EDT Consult Endocrinology [address] [phone] Marian Turner MD Hypothyroidism (acquired) (Primary Dx); Hyperthyroidism 07/24/2025 Telephone Orthopedic Surgery - [place] 175 [facility] 140 [place] [phone] Bessy Mesa MD 07/23/2025 3:30 PM EDT Office Visit Orthopedic Surgery - [place] 175 [facility] 140 [place] [phone] Nichelle Archibald PA Surgery follow-up (Primary Dx) 07/23/2025 Telephone Orthopedic Surgery [facility] [address] [phone] Jacquelyn Sow 07/16/2025 1:10 PM EDT Anesthesia Event [facility] OR [address] [place] [phone] Magda Siegel MD Chang, Ling, CRNA 07/16/2025 12:30 PM EDT - 07/16/2025 2:00 PM EDT Surgery [facility] OR [address] [place] [phone] Bessy Mesa MD core decompression right distal radius [00192 (CPT )] 07/16/2025 10:33 AM EDT - 07/16/2025 4:05 PM EDT Hospital Encounter [facility] OR [address] [place] [phone] Bessy Mesa MD 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 ([facility] V24, [facility] V28) Discharge Disposition: Home or Self Care 07/16/2025 7:20 AM EDT - 07/16/2025 11:59 PM EDT Hospital Encounter [facility] Xray [address] [place] [phone] Pain Discharge Disposition: Home or Self Care 07/16/2025 Telephone Gastroenterology - [place] [address] 175 [facility] [address] [place] [phone] Gia Lance NP 07/15/2025 Telephone Orthopedic Surgery [facility] 250 175 [facility] [address] [place] [phone] Bessy Mesa MD 07/08/2025 6:02 PM EDT - 07/08/2025 10:10 PM EDT Emergency [facility] Emergency [address] [place] [phone] Jalil Steven MD Goebel, Mathew, MD Spinal stenosis of lumbar region, unspecified whether neurogenic claudication present (Primary Dx) Discharge Disposition: Home or Self Care 07/08/2025 3:15 PM EDT Consult Orthopedic Surgery [facility] 175 [facility] 140 [place] [phone] Bessy Mesa MD Osteochondrosis of lunate of left wrist (Primary Dx) from Last 3 Months Immunizations Immunization Administration Dates Next Due Hepatitis B (Pycmhoz-T-Wywtr , Recombivax HB-Adult) 19yo and older 02/21/2022,01/17/2022 [...] 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 Dominant R skidway man strength at least 35# (vs 20initial, vs [...] AUTO DIFFERENTIAL STAT 10/06/2025 5:31 PM EST COMPREHENSIVE METABOLIC PANEL STAT 10/06/2025 5:31 PM EST CBC AND DIFFERENTIAL STAT 10/06/2025 5:31 PM EST XR WRIST 3+ VIEWS RIGHT Routine 09/15/2025 [...] Recently Relevant to Health Maintenance Results * CT Abdomen Pelvis w Contrast [...] reflex microscopic (10/06/2025 6:26 PM EST) Specific [place] Urine 1.013 1.003 - 1.030 LAB URINALYSIS [...] - AUTOMATED METHOD 10/06/2025 7:03 PM EST [facility] Bilirubin, Urine Negative Negative LAB URINALYSIS - AUTOMATED METHOD 10/06/2025 7:03 PM EST [facility] Blood, Urine Negative Negative LAB URINALYSIS - AUTOMATED METHOD 10/06/2025 7:03 PM EST [facility] Urine Urine specimen obtained by clean catch procedure / Unknown Non-blood Collection / Unknown 10/06/2025 6:26 PM EST 10/06/2025 6:57 PM EST us Jose Marmolejo MD LAB URINE ORDERABLES Final Resu lt [facility] [address] [place] [address], [place] [phone] * XR Chest 2 Views (10/06/2025 5:38 PM EST) Anatomical Region Laterality Modality Body Radiographic Krystyna ging 10/07/2025 8:47 AM EST Impressions 10/07/2025 8:48 AM EST Impression: Discoid atelectasis in the left lower lung, unchanged. Telerad TL ([id number]) -------- FINAL REPORT -------- Dictated By: Dayami Diehl Dictated Date: 10/07/2025 08:47 ET Assigned Physician: Dayami Diehl Reviewed and Electronically Signed By: Dayami Diehl Signed Date: 10/07/2025 08:48 ET Workstation ID: [id number] Transcribed By: Self Edit Transcribed Date: 10/07/2025 [...] the left lower lung, unchanged. Telerad TL ([id number]) -------- FINAL REPORT -------- Dictated By: Dayami Diehl Dictated Date: 10/07/2025 08:47 ET Assigned Physician: Dayami Diehl Reviewed and Electronically Signed By: Dayami Diehl Signed Date: 10/07/2025 08:48 ET Workstation ID: [id number] Transcribed By: Self Edit Transcribed Date: 10/07/2025 08:47 ET Irais BOOTHE IMG XR PROCEDURES Final Resu lt * (ABNORMAL) CBC auto differential (10/06/2025 5:31 PM EST) Only the most recent of2 resultswithin the time period is included. WBC 8.6 4.8 - 10.8 K/mcL LAB [...] % LAB HEMETOLOGY METHOD 10/06/2025 6:35 PM EST [facility] Neutrophils Absolute 5.14 1.50 - 7.00 K/mcL LAB HEMETOLOGY METHOD 10/06/2025 6:35 PM EST [facility] Lymphocytes Absolute 2.72 1.00 - 5.00 K/mcL LAB HEMETOLOGY METHOD 10/06/2025 6:35 PM EST [facility] Monocytes Absolute 0.61 0.20 - 1.00 K/[facility] LAB HEMETOLOGY METHOD 10/06/2025 6:35 PM EST [facility] Eosinophils Absolute 0.11 0.00 - 0.50 K/[facility] LAB HEMETOLOGY METHOD 10/06/2025 6:35 PM EST [facility] Basophils Absolute 0.03 0.00 - 0.20 K/mcL LAB HEMETOLOGY METHOD 10/06/2025 6:35 PM EST [facility] Immature Granulocytes Absolute 0.03 0.00 - 0.03 K/[facility] LAB HEMETOLOGY METHOD 10/06/2025 6:35 PM EST [facility] Blood Venous blood specimen / Unknown Venipuncture / Unknown 10/06/2025 5:31 PM EST 10/06/2025 6:25 PM EST us Irais BOOTHE LAB BLOOD ORDERABLES Final R esult [facility] [address] [place] [address], * Comprehensive metabolic panel (10/06/2025 5:31 PM EST) Only the most recent of2 resultswithin the time period is included. Sodium 141 133 - 145 mmol/L 10/06/2025 7:05 PM EST [facility] Potassium 4.5 3.5 - 5.5 mmol/L 10/06/2025 7:05 PM EST [facility] Chloride 108 96 - 110 mmol/L [...] for race. BUN/Creatinine Ratio 8.2 10/06/2025 7:05 [facility] Calcium 9.4 8.5 - 10.5 mg/dL [...] 0.0 - 1.4 mg/dL 10/06/2025 7:05 PM EST [facility] Blood Venous blood specimen / Unknown Venipuncture / Unknown 10/06/2025 5:31 PM EST 10/06/2025 6:25 PM EST Irais BOOTHE LAB BLOOD ORDERABLES Final R esult [facility] [address] [place] [address], * XR Wrist 3+ Views Right (09/15/2025 [...] not progressed from prior x-rays obtained 01/22/2025. us Von Mcclure MD IMG XR PROCEDURES Fin al Result * Helicobacter pylori antigen, stool (07/30/2025 9:58 AM EDT) Helicobacter Pylori Ag Not detected Not detected 08/05/2025 2:52 PM EDT [facility] Comment: This test was performed at [facility] using a chemiluminescent immunoassay intended [...] Food and Drug Administration. Test performed at [facility], [address] [place] [address] Krystina Austin MD, PhD - Straight Pin Making Machine Operator Stool Rectum structure / Unknown Non-blood Collection / Unknown 07/30/2025 9:58 AM EDT 07/30/2025 9:58 AM EDT Gia Lance MELT HOUSE CENTRIFUGAL OPERATOR LAB BODY FLUIDS AND STOOLS ORDE BORIS Final Result [facility] [address] [place] [address] * Thyroid stimulating hormone with reflex to free t4 and free t3 (07/24/2025 9:32 AM EDT) TSH 1.20 0.40 - 4.00 mcIU/mL LAB CHEMISTRY METHOD 07/24/2025 12:39 PM EDT [facility] Blood Venous blood specimen / Unknown Venipuncture / Unknown 07/24/2025 9:32 AM EDT 07/24/2025 9:32 AM EDT Marian Turner MD LAB BLOOD ORDERABLES Final Res ult Performing Organization Address City/[facility]/ZIP Co de Phone Number [facility] [address] [place] [address], * Thyroid stimulating immunoglobulin (07/24/2025 9:32 AM EDT) Thyroid Stimulating Immunoglobulin <0.10 <0.10 IU/L 07/28/2025 7:54 PM EDT [facility] Comment: Thyroid stimulating immunoglobulins (TSI) concentrations greater than or equal to (>=) 0.55 IU/L have a clinical sensitivity of at least 98.6%, and a clinical specificity of at least 98.5%, for the differential diagnosis of Graves' Disease. TSI concentrations for patients with other thyroid or autoimmune diseases range from 0.11 to 0.39 IU/L. Test performed at [facility], [address], [place], [place] [id number] Krystina Austin MD, PhD - Straight Pin Making Machine Operator Blood Venous blood specimen / Unknown Venipuncture / Unknown 07/24/2025 9:32 AM EDT 07/24/2025 9:32 AM EDT Marian Turner MD LAB BLOOD ORDERABLES Final Res ult [facility] [address] [place] [address] * Triiodothyronine free (07/24/2025 9:32 AM EDT) T3, Free 316 230 - 420 pcg/dL LAB CHEMISTRY METHOD 07/24/2025 12:38 PM EDT [facility] Blood Venous blood specimen / Unknown Venipuncture / Unknown 07/24/2025 9:32 AM EDT 07/24/2025 9:32 AM EDT Marian Turner MD LAB BLOOD ORDERABLES Final Res ult Performing Organization Address [facility]/ZIP Co de Phone Number [facility] [address] [place] [address], [place] [phone] * Thyroxine free (07/24/2025 9:32 AM EDT) Free T4 1.16 0.70 - 1.80 ng/dL LAB CHEMISTRY METHOD 07/24/2025 12:38 PM EDT [facility] Blood Venous blood specimen / Unknown Venipuncture / Unknown 07/24/2025 9:32 AM EDT 07/24/2025 9:32 AM EDT Marian Turner MD LAB BLOOD ORDERABLES Final Res ult [facility] [address] [place] [address], [place] [phone] * Tissue exam (07/16/2025 1:50 PM EDT) Final Diagnosis Bone, Right, Distal Radius-decomp ression: -FRAGMENTS OF TRABECULAR BONE WITH NO SPECIFIC PATHOLOGIC CHANGE 07/18/2025 12:03 PM EDT [facility] at 1203 EDT Comment Intact specimen with articular cartilage is preferred specimen for evaluating avascular necrosis. 07/18/2025 12:03 PM EDT [facility] Gross Description A. Wrist, Right, Distal Radius: Labeled right dis wrist R . Received in formalin is a 1.4 x 0.8 x 0.2 cm aggregate of hard, rocha-red bone fragments which are wrapped in paper and submitted in toto in one cassette, multiple pieces, following decalcificati on. TS 07/18/2025 12:03 PM EDT [facility] Disclaimer Unless otherwise specified, all tissue is 10% NB formalin fixed and paraffin embedded. 07/18/2025 12:03 PM EDT [facility] Bone Structure of right wrist region / Unknown 07/16/2025 1:50 PM EDT 07/16/2025 3:19 PM EDT Bessy Mesa MD LAB PATHOLOGY ORDERABLES Nataliia vasquez Result [facility] [address] [place] [address], * (ABNORMAL) Culture anaerobic with gram stain (07/16/2025 1:40 PM EDT) Culture, Anaerobic No Growth of Anaerobes. 07/24/2025 8:51 AM EDT [facility] Culture, Anaerobic Staphylococcus warneri(A) ABBEY 07/24/2025 8:51 AM EDT [facility] Comment: SPARSE Beta-lactamase negative The organism value for this result has been updated. These results have been appended to the previously preliminary verified report. Edited result: Previously reported as Gram Positive Cocci on 07/20/2025 at 0832 EDT. Culture, Anaerobic Streptococcus viridans group(A) ABBEY 07/24/2025 8:51 AM EDT [facility] Comment: SPARSE Susceptibility testing [...] species,not anthracis(A) ABBEY 07/24/2025 8:51 AM EDT [facility] Comment: SPARSE The organism value for this result has been updated. These results have been appended to the previously preliminary verified report. Gram Stain Result Refer to Aerobic culture for gram stain results. 07/24/2025 8:51 AM EDT [facility] Swab Structure of right [...] MICROBIOLOGY - GENERAL OR DERABLES Final Result [facility] [address] [place] [address], [place] [phone] * Culture wound deep (07/16/2025 1:40 PM EDT) Culture, Wound No growth at 3 days 07/19/2025 10:14 AM EDT [facility] Gram Stain Result No polymorphonuclear leukocytes, No epithelial cells, and No organisms noted 07/19/2025 10:14 AM EDT [facility] Swab Structure of right wrist region / Unknown 07/16/2025 1:40 PM EDT 07/16/2025 2:37 PM EDT Bessy Mesa MD LAB MICROBIOLOGY - GENERAL OR DERABLES Final Result [facility] [address] [place] [address], [place] [phone] * TH AN LMA(NO CHARGE) (07/16/2025 1:23 [...] spinal canal stenosis T12-L1 through L4-L5, and wvoo-[id number]-[id number] bilateral L4-L5 neural foraminal stenosis. 2. Unremarkable [...] spinal canal stenosis from T12-L1 through L4-L5. Xkxe-uz-rymemdsj bilateral L4-L5 neural foraminal stenosis. Unremarkable appearance of the conus medullaris and cauda equina. Paraspinous musculature intact. Procedure Note James Sheth Maltese - 07/08/2025 INDICATION: Low back pain, cauda [...] spinal canal stenosis from T12-L1 through L4-L5. Atjc-tm-[id number] bilateral L4-L5 neural foraminal stenosis. Unremarkable appearance of the conus medullaris and cauda equina. Paraspinous musculature intact. IMPRESSION: 1. Multilevel degenerative changes of the lumbar spine as described contributing to mild multifocal spinal canal stenosis T12-L1 through L4-L5, and nijv-yy-afnzrihq bilateral L4-L5 neural foraminal stenosis. 2. Unremarkable appearance of the conus medullaris and cauda equina. This document has been electronically signed by: James Sheth MD on 07/08/2025 21:13:43 Jalil Steven MD IMG MRI PROCEDURES Final Result * Lipase (07/08/2025 7:06 PM EDT) Lipase 19 13 - 75 unit/L LAB CHEMISTRY METHOD 07/08/2025 7:54 PM EDT [facility] Blood Venous blood specimen / Unknown Venipuncture / Unknown 07/08/2025 7:06 PM EDT 07/08/2025 7:15 PM EDT Juan F Doshi MD LAB BLOOD ORDERABLES Final Result [facility] [address] [place] [address], * COLONOSCOPY Anesthesia - MAC; [facility] ENDOSCOPY (06/05/2025 12:23 PM EDT) Anatomical [...] previously scheduled. Narrative 06/05/2025 12:27 PM EDT [facility] GI Patient Name: María Phillips Procedure [...] verified by the physician, the nurse, the warehouse assistant and the multi care technician in the pre-procedure area in the [...] not prolapse). Procedure Code(s): --- Professional --- 47381, Colonoscopy, flexible; with biopsy, single or multiple Diagnosis Code(s): --- Professional --- R19.7, Diarrhea, unspecified CPT copyright 2020 [employer]. All rights reserved. The codes documented in this report are preliminary and upon professional housing consultant review may be revised to meet current compliance requirements. Melba Bunn MD 06/05/2025 12:27:19 PM This report has been signed electronically.Melba Bunn MD Number of Addenda: 0 Note Initiated On: 06/05/2025 11:57 AM Scope Withdrawal Time: 0 hours 6 minutes 22 seconds Scope In: 12:10:33 PM Scope Out: 12:23:27 PM Endoscopy Department at [facility] - [address] [place] [phone] Procedure Note Melba Bunn MD - 06/05/2025 [facility] GI Patient Name: María Phillips Procedure [...] the physician, the nurse, theanesthetist and the multi care technician in the pre-procedure area in the [...] not prolapse). Procedure Code(s): --- Professional --- 06724, Colonoscopy, flexible; with biopsy, singleor multiple Diagnosis Code(s): --- Professional --- R19.7, Diarrhea, unspecified CPT copyright 2020 [employer]. All rights reserved. The codes documented in this report are preliminary and upon professional housing consultant reviewmay be revised to meet current compliance requirements. Melba Bunn MD 06/05/2025 12:27:19 PM This report has been signed electronically.Melba Bunn MD Number of Addenda: 0 Note Initiated On: 06/05/2025 11:57 AM Scope Withdrawal Time: 0 hours 6 minutes 22 seconds Scope In: 12:10:33 PM Scope Out: 12:23:27 PM Endoscopy Department at [facility] - [address] [place] [phone] IMPRESSION: - The examined portion of the [...] year. Mammo Location: [facility], [address] [place] [address], [id number], . -------- FINAL REPORT -------- Dictated By: Stefani Zamora Dictated Date: 02/06/2025 09:43 ET Assigned Physician: Stefani Zamora Reviewed and Electronically Signed By: Stefani Zamora Signed Date: 02/06/2025 09:45 ET Workstation ID: [id number] Transcribed By: Self Edit Transcribed Date: 02/06/2025 [...] year. Mammo Location: [facility], [address] [place] [address], [id number], . -------- FINAL REPORT -------- Dictated By: Stefani Zamora Dictated Date: 02/06/2025 09:43 ET Assigned Physician: Stefani Zamora Reviewed and Electronically Signed By: Stefnai Zamora Signed Date: 02/06/2025 09:45 ET Workstation ID: [id number] Transcribed By: Self Edit Transcribed Date: 02/06/2025 09:43 ET us Araceli BOOTHE IMG BI PROCEDURES Final Result * Lipid panel with reflex to direct LDL (10/28/2024 2:36 PM EST) Cholesterol 196 0 - 200 mg/dL LAB CHEMISTRY METHOD 10/28/2024 4:17 PM [facility] Triglycerides 51 0 - 150 mg/dL LAB CHEMISTRY METHOD 10/28/2024 4:17 PM [facility] HDL 111 >=40 mg/dL LAB CHEMISTRY METHOD 10/28/2024 4:17 PM [facility] LDL Calculated 75 0 - 100 mg/dL LAB CHEMISTRY METHOD 10/28/2024 4:17 PM [facility] VLDL Cholesterol Corby 10.2 mg/dL LAB CHEMISTRY METHOD 10/28/2024 4:17 PM [facility] Non HDL Chol. (LDL+VLDL) 85 <145 mg/dL LAB CHEMISTRY METHOD 10/28/2024 4:17 PM [facility] Chol/HDL Ratio 1.8 0.0 - 4.4 LAB CHEMISTRY METHOD 10/28/2024 4:17 PM EST [facility] Blood Venous blood specimen / Unknown Venipuncture / Unknown 10/28/2024 2:36 PM EST 10/28/2024 3:06 PM EST Araceli BOOTHE LAB BLOOD ORDERABLES Fin al Result [facility] [address] [place] [address], * HIV Screening (05/20/2024) Pathologist [facility] HIV Screening abstracted Historical Provider HEALTH MAINTENANCE Final Result * Hepatitis C Screening (05/20/2024) Pathologist [facility] Hepatitis C Screening abstracted Historical Provider HEALTH MAINTENANCE Final Result * Cervical Cancer Screening: HPV (07/20/2023) Pathologist [facility] Cervical Cancer Screening: HPV no interpreta tion,abstr acted Historical Provider HEALTH MAINTENANCE Final Result from Last 3 Months or Most Recently Relevant to Health Maintenance Insurance [facility] CAMILA QUINONEZ [id number] Advance Directives * Full Code - Default [...] currently active code status orders. Care Teams Pocket Cutter Relationship Specialty Start Date End Date Araceli Augustin PA [address] [place] [phone] PCP - General 11/20/24
--- OUTSIDE RECORDS SUMMARY | 2025-10-07 15:47 | XMS_ITS | Clinical Summary ---
Author Organization [facility] Address [address] [place] [phone] Phone Care Team Providers Care Cad Detailer Name Role Phone Vee Allan MD Primary [...] Medical Devices Not on file Care Teams Cad Detailer Relationship Specialty Start Date End Date Vee Allan MD [address] [place] [id number] PCP - General Internal Medicine 09/01/20 Additional Source Comments The information contained in this document represents components of the legal health record. It is not the complete legal health record.[facility]
--- OUTSIDE RECORDS SUMMARY | 2025-10-07 15:47 | XMS_ITS | Encounter Summary ---
Author Organization [facility] Address [address] [place] [address] [place] [phone] Phone Care Team Providers Care Photography Intern Name Role Phone Vee Allan MD Primary Care Pr ovider Encounter Details Date Type Department Care Team (Late st Contact Info) Description 10/08/2020 Ancillary Orders [facility] - Orthopaedics Outpatient Practice [address] [facility] 1st Floor, [address] [place] [address] Finn Bone MD [address] [place] [id number] [email or web address] Hand joint pain Social History Tobacco [...] hand documented in this encounter Care Teams Photography Intern Relationship Specialty Start Date End Date Vee Allan MD [address] [place] [phone] PCP - General Internal Medicine 09/01/20 documented as of this encounter Additional Source Comments The information contained in this document represents components of the legal health record. It is not the complete legal health record.[facility]
== END 2025-10-07 14:31 | disposition home or self-care (01) ==
LOC: HO.RHES 13:45
PROVIDERS: Visit Provider Internal Medicine Rheumatology
DX: M05.79 Rheumatoid arthritis with rheumatoid factor of multiple sites without organ or systems involvement (principal)
CPT/HCPCS: 99214; G2211

== ENCOUNTER 2025-10-26 16:04 | Emergency (ER) | payer OTHER, SELFPAY ==
--- OUTSIDE RECORDS SUMMARY | 2024-08-06 07:23 | XMS_ITS | Encounter Summary ---
Author Organization [facility] Address [address] [place] [address] Care Team Providers Care Percussion Instrument Tuner Name Role Phone Unavailable Primary Care Provider Unavailabl e Encounter Details Date Type Department Care Team (Late st Contact Info) Description 08/06/2024 8:23 AM EDT Hospital Encounter TH HISTORIC ENCOUNTERS EASTERN CONVERSION ONLY Tutu Trivedi MD [address] [place] [address] Social History Tobacco Use Types Packs/Day Years Used Date Smoking Tobacco: Some Days Cigarettes 0.5 49 Started: 1974 Smokeless Tobacco: Never Alcohol Use [...] 12:34 PM EST documented in this encounter Procedure Notes * Tutu Trivedi [...] documented in this encounter Plan of Treatment Upcoming Encounters Date Type Department Care Team (Late st Contact Info) Description 11/10/2025 3:30 PM EST Office Visit Orthopedic Surgery - [place] [address] [facility] [address] [place] [address] Nichelle Archibald PA [address] [facility] [address] [address] documented as of this encounter Goals Goal Patient Goal Type Associated Problems Recent Progress Patient-Stated? Author OT 6-8 visits General No change(2024 4:47 PM EST) No Nichelle Milian, OT Note: 1> Indep HEP (splint weaning, ROM, pain manage, eventual strength) 09/11 Ongoing 2. Dominant R yoga instructor strength at least 35# (vs 20initial, vs [...]
--- OUTSIDE RECORDS SUMMARY | 2024-11-04 08:00 | XMS_ITS ---
Author Organization [facility] Address [address] [place] [address] Care Team Providers Care Steward/Stewardess Second Class Name Role Phone IKER ROBLERO PA-C Primary Care Provider Latonya Ramirez Unavailable [phone] Allergies Allergen (clinical drug ingredient) Drug/Non Drug Allergy documented on EMR Reaction Allergy Type Onset Date Status erythromycin ERYTHROMYCIN Skin Rash Drug Allergy A ctive REASON FOR VISIT PAP AFTER PREMARIN USE Encounters Encounter Location Date Provider Diagnosis [address] [address] 11/04/2024 Latonya Lozano Plan Of Treatment No Information Progress Notes * DAWSON OLSONMOONOB:1965 (60 yo F)Acc No.[id number]:11/04/2024 PROGRESS NOTES Patient: MARCUS RODRIGUEZ Appointment Provider: Shannon Lozano M.D. :1965 A ge:59 Y S ex:Female Date:11/04/2024 Address:[address] [place], [place] [phone] Pcp:IKER ROBLERO PA-C Subjective: * Chief Complaints: * 1 . PAP AFTER PREMARIN USE. 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 * Sign Artist History: G ravida/ Para 2 /2. S exual activity n ot currently sexually active. L ast Pap Smear: ASCUS, POS HRHPV (Neg 16, 18/45), 03/28/22 LGSIL, POS HRHPV (neg 16, 18/45), 11/21/17 NEG HRHPV, 2011. M ammogram: < 50% density, 02/27/19 < 50% density, 07/26/2017 normal, 07/2016 with follow up Lt Diagnostic 07/09/2016 Bx recommended. A bnormal Pap Smear: [place] Negative, 06/06/22 [place] Negative, 03/2022 LGSIL, + HRHPV. L MP and menses M mark 01/2017. B irth Control: N one. C olonoscopy 1 , 1997. B one Density: . * OB History: T otal pregnancies 2 . T otal living children 2 . N VD 2 . * Allergies: E RYTHROMYCIN: Skin Rash - Allergy. Objective: * Vitals: Assessment: Plan: * Treatment: * Images: Billing Information: * Visit Code: * Procedure Codes: * Electronic signature of Pato Lozano MD on 10/26/2025 at 05:00 PM EST Sign off status: Pending * Appointment Provider: Shannon Lozano M.D. Date: Generated for Renay bear/Hilton/Lambertoitting on: 12/27/2024 05:00 PM EST
--- OUTSIDE RECORDS SUMMARY | 2024-12-05 05:40 | XMS_ITS ---
Author Organization [facility] Address [address] [place] [address] Care Team Providers Care Melter Operator Name Role Phone IKER ROBLERO PA-C Primary Care Provider Latonya Ramirez Unavailable [phone] Allergies Allergen (clinical drug ingredient) Drug/Non Drug [...] 6-10 Encounters Encounter Location Date Provider Diagnosis [address] [address] 12/05/2024 Latonya Lozano Plan Of Treatment No Information Progress Notes * MIS OLSONOB:1965 (60 yo F)Acc No.[id number]:12/05/2024 PROGRESS NOTES Patient: MARCUS RODRIGUEZ Appointment Provider: Shannon Lozano M.D. :1965 A ge:59 Y S ex:Female Date:12/05/2024 Address:[address] [place] [address] Pcp:IKER ROBLERO PA-C Subjective: * Chief Complaints: [...] on cytologic smear of cervix (ASC-US). * Support Services Specialist History: G ravida/ Para 2 /2. S exual activity n ot currently sexually active. L ast Pap Smear: ASCUS, POS HRHPV (Neg 16, 18/45), 03/28/22 LGSIL, POS HRHPV (neg 16, 18/45), 11/21/17 NEG HRHPV, 2011. M ammogram: < 50% density, 02/27/19 < 50% density, 07/26/2017 normal, 07/2016 with follow up Lt Diagnostic 07/09/2016 Bx recommended. A bnormal Pap Smear: [place] Negative, 06/06/22 [place] Negative, 03/2022 LGSIL, + HRHPV. L MP [...] of Pato Lozano MD on 10/26/2025 at 04:59 PM EST Sign off status: Pending * Appointment Provider: Shannon Lozano M.D. Date: 0 12/05/2024 Generated for Renay bear/Hilton/Shaquille on: 12/27/2024 04:59 PM EST
--- OUTSIDE RECORDS SUMMARY | 2025-02-14 06:00 | XMS_ITS ---
Author Organization [facility] Address [address] [place] [address] Care Team Providers Care R[place]o Clown Name Role Phone IKER ROBLERO PA-C Primary Care Provider Unav Latonya Panda Unavailable [phone] REASON FOR VISIT ULTRA - CK OVARIES ? DERMOID ON RT ADNEXA ON X RAY Encounters Encounter Location Date Provider Diagnosis [facility] [address] 02/14/2025 Latonya Lozano Plan Of Treatment No Information Progress Notes * DAWSON OLSONMOONOB:1965 (60 yo F)Acc No.[id number]:02/14/2025 PROGRESS NOTES Patient: MARCUS RODRIGUEZ Appointment Provider: Shannon Lozano M.D. :1965 A ge:59 Y S ex:Female Date:02/14/2025 Address:[address] [place], [place] [address] Pcp:IKER ROBLERO PA-C Subjective: * Chief Complaints: [...] 02/14/2025 Generated for Kareeni chema/Hilton/eTransmitting on: 1 12/27/2024 05:00 PM EST
--- OUTSIDE RECORDS SUMMARY | 2025-03-03 08:10 | XMS_ITS ---
Author Organization [facility] Address [address] [place] [phone] Care Team Providers Care Provider Network Analyst Name Role Phone IKER ROBLERO PA-C Primary Care Provider Latonya Ramirez Unavailable [phone] Allergies Allergen (clinical drug ingredient) Drug/Non Drug [...] Active Encounters Encounter Location Date Provider Diagnosis [address] [address] 03/03/2025 Latonya Lozano Plan Of Treatment No Information Progress Notes * MIS OLSONOB:1965 (60 yo F)Acc No.[id number]:03/03/2025 Patient: Bhavna DIORMARCUS Appointment Provider: Shannon Lozano M.D. :1965 A ge:59 Y S ex:Female Date:03/03/2025 Address:[address] [place] [address] Pcp:IKER ROBLERO PA-C Subjective: * Chief Complaints: [...] on cytologic smear of cervix (ASC-US). * Migratory Worker History: G ravida/ Para 2 /2. S exual activity n ot currently sexually active. L ast Pap Smear: ASCUS, POS HRHPV (Neg 16, 18/45), 03/28/22 LGSIL, POS HRHPV (neg 16, 18/45), 11/21/17 NEG HRHPV, 2011. M ammogram: < 50% density, 02/27/19 < 50% density, 07/26/2017 normal, 07/2016 with follow up Lt Diagnostic 07/09/2016 Bx recommended. A bnormal Pap Smear: [place] Negative, 06/06/22 [place] Negative, 03/2022 LGSIL, + HRHPV. L MP [...] 03/03/2025 Generated for Renay bear/[place] on: 1 12/27/2024 05:00 PM EST
--- OUTSIDE RECORDS SUMMARY | 2025-03-06 05:00 | XMS_ITS ---
Author Organization [facility] Address [address] [facility] [address] [place] [address] Care Team Providers Care Solutions Specialist Name Role Phone IKER ROBLERO PA-C Primary Care Provider Latonya Ramirez Unavailable [phone] Allergies Allergen (clinical drug ingredient) Drug/Non Drug [...] Gabapentin 100 MG TAKE 1 CAPSULE BY [facility] 3 TIMES A DAY Oral; [...] 6-10 Encounters Encounter Location Date Provider Diagnosis [address] [place] [address] 03/06/2025 Latonya Lozano Plan Of Treatment No Information Progress Notes * DAWSON OLSONENDOB:1965 (60 yo F)Acc No.[id number]:03/06/2025 Patient: MARCUS RODRIGUEZ Appointment Provider: Shannon Lozano M.D. :1965 A ge:59 Y S ex:Female Date:03/06/2025 Address:[address] [place], [place] [phone] Pcp:IKER ROBLERO PA-C Subjective: * Chief Complaints: [...] on cytologic smear of cervix (ASC-US). * Assembler Production Line History: G ravida/ Para 2 /2. S exual activity n ot currently sexually active. L ast Pap Smear: ASCUS, POS HRHPV (Neg 16, 18/45), 03/28/22 LGSIL, POS HRHPV (neg 16, 18/45), 11/21/17 NEG HRHPV, 2011. M ammogram: Breast Tissue is Almost Entirely Fatty, , 02/27/19 < 50% density, 07/26/2017 normal, 07/2016 with follow up Lt Diagnostic 07/09/2016 Bx recommended. A bnormal Pap Smear: [place] Negative, 06/06/22 [place] Negative, 03/2022 LGSIL, + HRHPV. L MP [...] 03/06/2025 Generated for Renay bear/Hilton/Lambertoitting on: 1 12/27/2024 05:00 PM EST
--- NOTE | ~2025-10-26 | XR_ITS ---
CLINICAL HISTORY: Rib Pain b l 4 view, chest and bilateral ribs Comparison: CR - XR KUB - 10/02/25 18:00 EST CR/MO/SR - XR CHEST 2 VIEWS - 11/10/22 16:47 EST Findings: Acute mildly displaced fracture of the left anterior 7th rib. Lungs are clear. Normal heart size. No pleural effusion or pneumothorax. IMPRESSION: 1. Acute mildly displaced fracture of the left anterior 7th rib. This document has been electronically signed by: Irma Shipley MD on 10/26/2025 17:04:32
--- NOTE | ~2025-10-26 | XR_ITS ---
CLINICAL HISTORY: nontraumatic 3 view left shoulder Comparison: None provided Findings: No fractures or dislocations. Mild glenohumeral and acromioclavicular osteoarthritis. No erosions. No radiopaque foreign body. IMPRESSION: 1. No acute findings This document has been electronically signed by: Irma Shipley MD on 10/26/2025 19:09:21
--- NOTE | 2025-10-26 16:08 | ED_ITS ---
HPI - General Adult General Chief complaint: General Medical Stated complaint: left arm and rib pain rashes Time Seen by Provider: 10/26/25 16:23 History of Present Illness ED Provider: Sabina CALERO narrative: The patient is a 60-year-old female who comes complaining of pains in multiple locations of her body. She says that she has been having a great deal of pain throughout her body for 2-1/2 years. She says that she has been diagnosed with rheumatoid arthritis and that she is due to have some kind of an infusion in 3 days but that she has been experiencing pains over the last few weeks that has been even worse than usual and which prompted her to drive herself to the hospital today. She says that she has had intermittent pain and redness to her left shoulder particularly over the last 2 weeks. She says she has not had any fevers. The patient was last in the emergency room here 3-1/2 weeks ago on October 02. At that emergency room visit the patient was complaining of abdominal pain. At that visit the patient also stated that she had suicidal thoughts because she was not having her pain controlled. At that visit she was seen by our behavioral health response team (the CARE team). When seen by the behavioral response team the patient denied any actual suicidality. she indicated that she has a therapist and a psychologist for PTSD and depression treatment. The patient was seen by Dr. Montero of the spine service at this hospital on July 23 for evaluation of multiple body pains including back pain and a sciatica like syndrome. At that time a review of all imaging studies suggested that there were no acute neurosurgical issues. The patient has been seen at our pain clinic at this hospital on August 21, September 16, September 19, and September 26, 2025. The patient says that despite the pains that she has been experiencing for the last 2-1/2 years which she describes as essentially disabling she has continued to work at the [employer]. The patient is seen at our rheumatology clinic. She was last seen at the rheumatology office on October 07, 3 weeks ago. Related Data Home Medications ?Medication ?Instructions ?Recorded ?Confirmed esomeprazole magnesium 40 mg 40 mg PO QAM 08/21/25 capsule,delayed release famotidine 20 mg tablet 20 mg PO BID 10/06/25 lorazepam 1 mg tablet 1 mg PO BID PRN 10/06/25 trazodone 50 mg tablet 50 mg PO BEDTIME 10/06/25 venlafaxine 37.5 mg 37.5 mg PO DAILY 10/06/25 capsule,extended release 24 hr venlafaxine 75 mg capsule,extended 75 mg PO DAILY 11/30 release 24 hr Previous Rx's ?Medication ?Instructions ?Recorded leg brace (Knee Support Brace) #1 ea 08/12/25 omeprazole 20 mg capsule,delayed 20 mg PO DAILY #30 ca ps 09/19/25 release magnesium citrate 300 ml PO DAILY PRN constipa tion 10/02/25 #296 mL simethicone 125 mg capsule 250 mg (2 x 125 mg) PO BID PRN 10/02/25 abdominal distention #10 caps infliximab 100 mg intravenous 225 mg IV ONCE 3 doses # 0 ea 10/21/25 solution infliximab 100 mg intravenous 225 mg IV Q8W #0 ea 10/06 04/30 solution Allergies Allergy/AdvReac Type Severity Reaction Status Date / Time erythromycin base Allergy Hives Verified 10/26/25 16:13 etanercept (From Enbrel) AdvReac Intermediate diverticuli Verified 10/26/25 16:13 tis leflunomide AdvReac Intermediate diverticuli Verified 10/26/25 16:13 tis prednisone AdvReac Intermediate Body pain Verified 10/26/25 16:13 gabapentin AdvReac Mild tremors Verified 10/26/25 16:13 Review of Systems 2 Review of Systems: Yes all other systems are reviewed and are negative PMFSH Past Medical History Medical History Dermatographia Helicobacter pylori (H. 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 Sacroiliac joint pain Tendonitis of ankle, right Surgical History H/O decompression of ulnar nerve History of surgery Social History Social History Household Members: Spouse and Family Housing: House Alcohol intake: current Alcohol intake frequency: holidays/special occasions only Patient Tobacco Use Status: Current everyday Tobacco user Tobacco use type: Cigarette Cigarettes Per Day: 10 Years Smoked: 15 years e-Cigarette/Vaping Use: Never Used Advance Directives: No Advance Directives Information Provided: No Do you have a plan to hurt others: No Plan service: No Current occupational status: employed 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 Physical Exam ED Vital Signs: Vital Signs - 24 hr 10/26/25 16:11 10/26/25 19:33 10/26/25 19:46 Temperature 98.1 F 97.9 F 97.9 F Pulse Rate 89 62 62 Respiratory Rate 18 19 19 Blood Pressure 124/81 137/77 137/77 Pulse Oximetry 98 99 99 Oxygen Delivery Method Room Air Room Air Room Air BMI result Body Mass Index 27.5 Const Other: the patient is a 60-year-old who was awake and alert. She was tearful and stating that she was in a great deal of pain. HENMT Other: The face is symmetrical. Mucous membranes moist. Eyes Other: Pupils are round equal, conjunctivae are clear, extraocular movements intact Neck Neck: Yes normal visual inspection, Yes full ROM and Yes no JVD Resp Effort & Inspection: normal respiratory effort Auscultation: clear to auscultation bilaterally Cardio Rate: regular rate Rhythm: regular rhythm Heart sounds: S1 normal heart sound present and S2 normal heart sound present GI Other: Abdomen is soft and nontender Skin Other: skin is dry. No definite rashes. The skin in the region of the left shoulder is unremarkable. Neuro Other: The patient is awake and alert with a normal mental status. Cranial nerves are grossly intact. She seems to be able to move all of her extremities symmetrically and appropriately. Extrem Other: There was no swelling or obvious abnormality of the left shoulder. No erythema or skin change. I was able to put the shoulder through a reasonably good range of motion without apparent discomfort. Course Course Course Narrative: This is a Rapid Medical Examination (RME) performed by Kerline Nina NP in triage. Full assessment, plan deferred to primary care physician. 60-year-old female medical history significant for depression, lumbar facet arthropathy, sacroiliac joint dysfunction, avascular necrosis, fibromyalgia, osteoarthritis, presents to the ED reporting significant back pain, reports it is throughout the entire back, as well as sporadic rashes. Reports now there is pain in the left upper extremity, the biceps area, as well as a rash there. Rash comes and goes. For 2 weeks the left arm, left shoulder have had a rash. This has been ongoing intermittently for about a year. Patient had slipped-rib surgery December 2024. Reports that she feels as though something is squeezing her ribs, right is worse than left. This is creating some shortness of breath. No substernal chest pain. No fever, chills. No abdominal pain, n/v. No injury, fall recently. Reports something is wrong with my ribs . Crying in triage. Reporting thoughts of hurting herself passively, reports this is due to the pain . Reports feeling depressed, no SI. No HI. Plan: CXR with ribs b/l, EKG. Medications Administered Discontinued Medications Generic Name Dose Route Start Last Admin Trade Name Freq PRN Reason Stop Dose Admin Sodium Chloride 1,000 mls @ 999 mls/hr 10/26/25 17:00 10/26/25 18:05 Ns IV 10/26/25 18:00 Infused .Q1H1M ELIDA Infusion Acetaminophen 1,000 mg in 100 mls @ 400 mls/hr 10/26/25 16:47 10/26/25 17:26 Ofirmev IV 10/26/25 17:01 Infused ONCE ONE Infusion Lactated Ringer's 1,000 mls @ 999 mls/hr 10/26/25 18:00 10/26/25 19:05 Lr IV 10/26/25 19:00 Infused .Q1H1M ELIDA Infusion Ketorolac Tromethamine 15 mg 10/26/25 16:47 10/26/25 17:12 Ketorolac Tromethamine 15 Mg/Ml Vial IVPUSH 10/26/25 16:48 15 mg ONCE ONE Administration Lidocaine 2 patch 10/26/25 17:55 10/26/25 18:05 Lidocaine 4 % Patch Adh..Patch TRANSDERMA 10/26/25 17:56 2 patch ONCE ONE Administration Protocol Medical Decision Making Medical Decision Making MDM Narrative: The patient is a 60-year-old woman with rheumatoid arthritis who presents with a complaint of multiple body pains which seem largely very chronic. Her most specific complaint is some pain in the left shoulder which she says has been associated with intermittent skin changes. I do not appreciate any skin changes to the left shoulder, no swelling to the left shoulder, and no significant diminished range of motion with manipulation of the left shoulder. The patient's past medical history seems profoundly complicated. I believe that she has seen multiple specialists at multiple institutions in multiple cities over the last several years. She describes having had rib surgery in [place] 2-1/2 years ago. She sees a neurologist in [place]. She has also been seen at the [facility]. She has seen Dr. Montero at this hospital. The patient has normal vital signs today. She drove herself to the emergency room today. Her physical exam does not suggest any obvious acute medical process. My overall impression is that the patient has complaints seem largely chronic and related to complex complaints of chronic pain. Workup was done that included blood testing, viral testing, and a chest x-ray with rib views was ordered at triage. The x-ray was initially read as describing an acute left anterior fracture of the 7th rib. I reviewed a CT scan from almost 2 months ago. I felt that the CT scan showed the anterior left 7th rib and that there was probably a fracture present at that time. I asked the radiologist to review the CT scan with regard to her reading of today's x-rays. After reviewing the CT scan there was an addendum to the x-ray reading today indicating that the fracture has been present in September and that there is callus at the site present currently suggesting healing. The chest x-ray and rib x-rays are otherwise negative. The patient also wished to have an x-ray of her left shoulder. This shows no acute findings. There is some mild osteoarthritis. The patient tested negative for influenza, COVID, RSV, and strep. Blood testing was unremarkable and reassuring. I explained to the patient at the outset that I thought it was very unlikely that I was going to find any explanation for her multiple areas of pain. I additionally explained from the outset that I did not feel that this would be occasion which opioids should be used. The patient was given IV ketorolac and acetaminophen to attempt to treat her pain. She reported that there was no change in her pain has a result. I then ordered to lidocaine patches which the nurse applied at the patient's direction. The patient had the patches apply to her right ribcage and her mid upper back. Ultimately I explained to the patient I do not have any good explanation for her multiple pains and I do not feel that she had any acute process. I felt that she could be discharged to follow up with her primary care provider and her multiple specialists. She was given a work note for today and tomorrow. She works at the [employer]. Lab Data 10/26/25 17:07 10/26/25 17:07 Labs: Lab Results 10/26/25 10/26/25 Range/Units 17:07 18:13 WBC 6.3 (4.8-10.8) X10*3/uL RBC 4.49 (4.20-5.50) X10*6/uL Hgb 14.6 (12.0-16.0) g/dl Hct 42.4 (37.0-47.0) % MCV 94.4 (80.0-98.0) fL MCH 32.5 (27.0-33.0) pg MCHC 34.4 (31.0-35.0) g/dl RDW 12.8 (11.0-16.0) % Plt Count 309 (160-400) X10*3/uL MPV 9.1 L (9.4-12.3) fL Immature Gran % (Auto) 0.2 (0.0-0.4) % Neut % (Auto) 49.3 (45-73) % Lymph % (Auto) 36.6 (20-40) % Barnes % (Auto) 9.8 (2-11) % Eos % (Auto) 3.6 (0-4) % Baso % (Auto) 0.5 (0-2) % Lymph # (Auto) 2.3 (1.2-4.9) X10*3/uL Barnes # (Auto) 0.6 (0.1-1.2) X10*3/uL Eos # (Auto) 0.2 (0.0-0.4) X10*3/uL Baso # (Auto) 0.0 (0.0-0.2) X10*3/uL Abs Immat Gran (auto) 0.01 (0.00-0.03) X10*3/uL Absolute Neuts (auto) 3.1 (2.0-8.3) x10*3/uL Absolute Nucleated RBC 0.000 (0.0-0.012) X10*3/uL Nucleated RBC % (auto) 0.0 (0.0-0.2) /100WBC Sodium 142 (135-145) mmol/L Potassium 3.7 (3.3-5.1) mmol/L Chloride 107 (96-108) mmol/L Carbon Dioxide 25 (22-29) mmol/L Anion Gap 14 (12-20) BUN 8 L (9-16) mg/dL Creatinine 0.65 (0.5-1.4) mg/dL Estim Creat Clear Calc 92.1 Estimated GFR > 60 Random Glucose 88 (60-115) mg/dL Calcium 9.7 (8.4-10.2) mg/dL Total Bilirubin 0.4 (0.0-1.0) mg/dL Direct Bilirubin 0.2 (0.0-0.5) mg/dL AST 24 (5-31) U/L ALT 21 (0-31) U/L Alkaline Phosphatase 94 (39-117) U/L C-Reactive Protein 0.11 (< or = 0.50) mg/dL Total Protein 6.8 (6.5-8.0) g/dL Albumin 4.3 (3.5-5.0) g/dL Influenza Type A (PCR) NEGATIVE (Negative) Influenza Type B (PCR) NEGATIVE (Negative) RSV RNA Qual (PCR) NEGATIVE (Negative) SARS-CoV-2 RNA (RT-PCR) NEGATIVE (Negative) S. pyogenes GrpA SHERWIN Negative (Negative) Discharge Plan Discharge Clinical Impression: Rib pain, Left shoulder pain, Low back pain, Rash, Viral respiratory illness Patient Disposition: Home, Self-Care Additional Instructions: Your testing today does not show any acutely dangerous process. I think that sometime in the past you has a fracture of your left 7th rib. There are signs of healing of this rib. There are no acute findings in your left shoulder x-ray. Your blood testing is very reassuring from the point of view of any inflammatory process. You have tested negative for influenza, RSV, COVID, and strep. Please continue to work with your regular doctor and your specialists for ongoing management of your symptoms. Return to the emergency room if significantly worse. Prescriptions: No Action magnesium citrate Solution 300 ml PO DAILY PRN (Reason: constipation) Qty: 296 0RF simethicone 125 mg capsule 250 mg PO BID PRN (Reason: abdominal distention) Qty: 10 0RF omeprazole 20 mg capsule,delayed release(DR/EC) 20 mg PO DAILY Qty: 30 0RF trazodone 50 mg tablet 50 mg PO BEDTIME lorazepam 1 mg tablet 1 mg PO BID PRN venlafaxine 37.5 mg capsule,extended release 24hr 37.5 mg PO DAILY venlafaxine 75 mg capsule,extended release 24hr 75 mg PO DAILY famotidine 20 mg tablet 20 mg PO BID infliximab 100 mg recon soln 225 mg IV Q8W Rx Instructions: administer over 2 hrs. Maintenance regimen. infliximab 100 mg recon soln 225 mg IV ONCE Rx Instructions: Induction dose at weeks 0, 2 and 6 (DME) Knee Support Brace Misc See Rx Instructions .Route Qty: 1 0RF Rx Instructions: As directed left knee hinge brace Dx: osteoarthritis esomeprazole magnesium 40 mg capsule,delayed release(DR/EC) 40 mg PO QAM Referrals: Araceli Augustin PA-C [Primary Care Provider, Primary Care] Stand Alone Forms: Work/School Release Interventions: ED Discharge Assessment Last Done: 10/26/25 19:46 Discharge Date/Time: 10/26/25 19:46 Print Language: Persian
[2025-10-26 16:11] VITALS: BP 124/81; PULSE 89; RESP 18; TEMP 36.7; O2SAT 98; BMI 27.5
--- NOTE | 2025-10-26 16:13 | ECG_ITS ---
Test Reason : RIB PAIN Blood Pressure : */* mmHG Vent. Rate : 88 BPM Atrial Rate : 88 BPM P-R Int : 138 ms QRS Dur : 60 ms QT Int : 372 ms P-R-T Axes : 59 54 55 degrees QTcB Int : 450 ms Normal sinus rhythm Normal ECG When compared with ECG of 10-Nov-2022 15:52, Non-specific change in ST segment in Inferior leads Nonspecific T wave abnormality no longer evident in Lateral leads Referred By: Kerline Nina Electronically Signed By: BEKAH GRAY MD
--- NOTE | 2025-10-26 16:28 | PC.NURSE ---
Away for xray.
--- OUTSIDE RECORDS SUMMARY | 2025-10-26 17:00 | XMS_ITS | Patient Health Record ---
Author Organization [facility] [address] Address [address] [place] [address] Care Team Providers Care Government Gauger Name Role Phone IKER ROBLERO Unavailable [phone] SvrAleah rabago Unavailable [phone] MILESCHINO CHRIS Unavailable [phone] Normoyle, Sneha Unavailable [phone] Allergies Allergen (clinical drug ingredient) Drug/Non Drug Allergy documented on EMR Reaction Allergy Type Onset Date Status Macrolides and Ketolides hives Drug Allergy Active Results Component Value Reference Range Flag Notes Complement C4, Serum-330889 Reviewed date:02/11/2025 07:43:19 AM Interpretation: Performing Lab:[facility] [place], [address] [place] [address], Phone - [phone], Director - Elsa Notes/Report: and Drug Administration. by [employer]. It has not been cleared or approved by the Food was developed and its performance characteristics determined Test(s) 949413-Vbjb-Aa-5 Ab (RDL) Complement C4, Serum 18 12-38 mg/dL CBC With Differential/Platel et-001876 Reviewed date:02/11/2025 07:43:32 AM Interpretation: Performing Lab:[facility] [place], [address] [facility], [place], Phone - [phone], Director - Elsa Notes/Report: Test(s) 873043-Dktt-El-9 Ab (RDL) was developed and its performance characteristics determined by [employer]. It has not been cleared or approved [...] Immature Grans (Abs) 0.0 0.0-0.1 x10E3/uL Sedimentation Rate-Westergre n-545374 Reviewed date:02/11/2025 07:42:43 AM Interpretation: Performing Lab:[facility], [address] [place] [address], Phone - [phone], Director - Elsa Notes/Report: Test(s) 225700-Wuzb-Rx-6 Ab (RDL) was developed and its performance characteristics determined by [facility]. It has not been cleared or approved by the Food and Drug Administration. Sedimentation Rate-Westergren 14 0-40 mm/hr Maryan Barnett CMP14 Default A hand-written panel/profile was received from your office. In accordance with the [facility] Ambiguous Test Code Policy dated May 2003, we have completed your order by using the closest currently or formerly recognized AMA panel. We have assigned Comprehensive Metabolic Panel (14), Test Code #239510 to this request. If this is not the testing you wished to receive on this specimen, please contact the [facility] Client Inquiry/Technical Services Department to clarify the test order. We appreciate your business. Complement C3, Serum-645071 Reviewed date:02/11/2025 07:43:16 AM Interpretation: Performing Lab:[facility] [place], [address] [place] [address], [place], Phone - [phone], [facility] Notes/Report: Test(s) 053584-Cjeu-Zv-5 Ab (RDL) was developed and its performance characteristics determined by [facility]. It has not been cleared or approved by the Food and Drug Administration. Complement C3, Serum 119 82-167 mg/dL Anti-dsDNA Antibodies-550162 Reviewed date:02/11/2025 07:43:13 AM Interpretation: Performing Lab:[facility] [address], Phone - [phone], [facility] Notes/Report: Test(s) 915797-Ejib-Lf-3 Ab (RDL) was developed and its performance characteristics determined by [facility]. It has not been cleared or approved by the Food and Drug Administration. Anti-DNA (DS) Ab Qn 1 0-9 IU/mL Negative <5 Equivocal 5 - 9 Positive >9 C-Reactive Protein, Cardiac- 398725 Reviewed date:02/11/2025 07:43:09 AM Interpretation: Performing Lab:[facility] [address], Phone - [phone], [facility] Notes/Report: Test(s) 592996-Ukvs-Kp-1 Ab (RDL) was developed and its performance characteristics determined by [facility]. It has not been cleared or approved by the Food and Drug Administration. C-Reactive Protein, Cardiac 1.34 0.00-3.00 mg/L Relative Risk for Future Cardiovascular Event Low <1.00 Average 1.00 - 3.00 High >3.00 Creatine Kinase (CK), MB-120 816 Reviewed date:02/11/2025 07:43:06 AM Interpretation: Performing Lab:[facility] [address], Phone - [phone], [facility] Notes/Report: Test(s) 058362-Pxgf-Sx-4 Ab (RDL) was developed and its performance characteristics determined by [facility]. It has not been cleared or approved by the Food and Drug Administration. Creatine Kinase (CK), MB 1.4 0.0-5.3 ng/mL Liiu-Xo-6-985227 Reviewed date:02/11/2025 07:43:02 AM Interpretation: Performing Lab:[facility] [address], Phone - [phone], Director - [facility] Notes/Report: Test(s) 071019-Qhzd-Jt-2 Ab (RDL) was developed and its performance characteristics determined by [facility]. It has not been cleared or approved by the Food and Drug Administration. Anti-Lakisha-1 <0.2 0.0-0.9 AI Comp. Metabolic Panel (14)-3 76336 Reviewed date:02/11/2025 07:43:25 AM Interpretation: Performing Lab:[facility] [place], [address] [facility], Phone - [phone], Director - [facility] Notes/Report: Test(s) 943122-Lple-Wp-9 Ab (RDL) was developed and its performance [...] ALT (SGPT) 13 0-32 IU/L Anti-Mi-2 Ab (RDL)-280114 Reviewed date:02/11/2025 07:42:59 AM Interpretation: Performing Lab:[facility] [place], [address] [facility], [place], Phone - [phone], Director - [facility] Notes/Report: Test(s) 080751-Fhho-Cz-9 Ab (RDL) was developed and its performance characteristics determined by [facility]. It has not been cleared or approved by the Food and Drug Administration. Anti-Mi-2 Ab (RDL) Negative Negative Anti-Ro (SS-A) Ab (RDL)-5200 10 Reviewed date:02/11/2025 07:42:55 AM Interpretation: Performing Lab:[facility] [address], Phone - [phone], Director - [facility] Notes/Report: Test(s) 333022-Jmnp-Cm-1 Ab (RDL) was developed and its performance characteristics determined by [facility]. It has not been cleared or approved by the Food and Drug Administration. Anti-Ro (SS-A) Ab (RDL) <20 <20 Units Negative: <20 Weak Positive: 20-39 Moderate Positive: 40-80 Strong Positive: >80 Anti-Sm Ab (RDL)-465371 Reviewed date:02/11/2025 07:42:50 AM Interpretation: Performing Lab:[facility] [address], Phone - [phone], [facility] Notes/Report: Test(s) 308657-Hlxa-Vm-8 Ab (RDL) was developed and its performance characteristics determined by [facility]. It has not been cleared or approved by the Food and Drug Administration. Anti-Sm Ab (RDL) <20 <20 Units Negative: <20 Weak Positive: 20-39 Moderate Positive: 40-80 Strong Positive: >80 Anti-La (SS-B) Ab (RDL)-5203 20 Reviewed date:02/11/2025 07:42:47 AM Interpretation: Performing Lab:[facility] [address], Phone - [phone], Director - [facility] Notes/Report: Test(s) 998620-Iosz-Ew-9 Ab (RDL) was developed and its performance characteristics determined by [facility]. It has not been cleared or approved by the Food and Drug Administration. Anti-La (SS-B) Ab (RDL) <20 <20 Units Negative: <20 Weak Positive: 20-39 Moderate Positive: 40-80 Strong Positive: >80 XR FLUORO UP TO 1 HOUR Reviewed date:02/04/2025 05:11:16 PM Interpretation: Performing Lab: Notes/Report: Note See Note [facility], a member of [facility] Patient Name: MARÍA PHILLIPS Date of : 1965 Reason for Exam: pain Exam Date: 02/04/2025 [id number] EST Report Status: Final Ordering Provider: DAVID [...] Signed Date: 025 12:53 ET Workstation ID: [id number] Transcribed By: Self Edit Transcribed Date: 02/04/2025 12:51 ET MG MAMMO DIGITAL SCREENING W HERACLIO BILAT Reviewed date:02/06/2025 11:57:46 AM Interpretation: Performing Lab: Notes/Report: Note See Note [facility], a member of [employer] Patient Name: MARÍA PHILLIPS Date of : 1965 Reason for Exam: SCREENING Exam Date: 02/05/2025 [id number] EST Report Status: Final Ordering Provider: IKER [...] is recommended in 1 year. Mammo Location: [facility], [address] [place] [address], [address], . -------- FINAL REPOR T -------- Dictated By: Stefani Zamora Dictated Date: 02/06/2025 09:43 ET Assigned Physician: Stefani Zamora Reviewed and Electronically Signed By: Stefani Zamora Signed Date: 09:45 ET Workstation ID: [id number] Transcribed By: Self Edit Transcribed Date: 02/06/2025 09:43 ET US HEAD NECK SOFT TISSUE Reviewed date:02/10/2025 05:04:59 PM Interpretation: Performing Lab: Notes/Report: Note See Note [facility], a member of [employer] Patient Name: MARÍA PHILLIPS Date of : 1965 Reason for Exam: ENLARGED LYMPHNODE Exam Date: 02/08/2025 [id number] EST Report Status: Final Ordering Provider: CHINO [...] Morton Signed Date: 15:55 ET Workstation ID: [id number] Transcribed By: Self Edit Transcribed Date: 02/08/2025 15:52 ET CBC WITH AUTO DIFFERENTIAL Reviewed date:03/05/2025 [...] 8-252 ng/mL CBC WITH AUTO DIFFERENTIAL Reviewed date:03/24/2025 07:49:47 [...] 07:44:34 AM Interpretation: Performing Lab: Notes/Report: Specific Comstock Urine 1.010 1.003-1.030 pH, Urine 8.0 5.0-8.0 pH Leukocytes, Urine Negative Negative Nitrite, Urine Negative Negative Protein, Urine Negative <=Trace mg/dL Glucose, Urine Negative Negative mg/dL Ketones, Urine Negative Negative mg/dL Urobilinogen, Urine 0.2 0.2-1.0 mg/dL Bilirubin, Urine Negative Negative Blood, Urine Negative Negative COMPREHENSIVE METABOLIC PANE L Reviewed date:05/05/2025 05:25:25 [...] <6.5 % Mean Bld Glu Estim. 117 CLOSTRIDIUM DIFFICILE TOXIN Reviewed date:05/08/2025 03:43:30 PM [...] Detection by PCR Not Detected Not Detected CALPROTECTIN, STOOL Reviewed date:05/12/2025 05:08:37 PM Interpretation: Performing Lab: Notes/Report: Calprotectin, Fecal 16.5 <50 mcg/g <50 mcg/g Normal 50 - 120 mcg/g Borderline >120 mcg/g Abnormal Borderline results suggest repeat testing in 4 to 6 weeks. Test performed at [facility], [address] [place] [address] Krystina Austin MD, PhD - Vertical Roll Operator XR WRIST 3+ VIEWS RIGHT Reviewed date:05/15/2025 07:58:21 AM Interpretation: Performing Lab: Notes/Report: Note See Note [facility], a member of [employer] Patient Name: MARÍA PHILLIPS Date of : 1965 Reason for Exam: Exam Date: 05/14/2025 [id number] EST Report Status: Final Ordering Provider: JOSHUA KAPLAN PCP: IKER ROBLERO Please see combined report with radiographs of the right hand. -------- FINAL REPOR T -------- Dictated By: Mauro Wright Dictated Date: 05/15/2025 07:41 ET Assigned Physician: Mauro Wright Reviewed and Electronically Signed By: Mauro Wright Signed Date: 07:41 ET Workstation ID: [id number] Transcribed By: Self Edit Transcribed Date: 05/15/2025 07:41 ET XR HAND 3+ VIEWS RIGHT Reviewed date:05/15/2025 07:58:11 AM Interpretation: Performing Lab: Notes/Report: Note See Note [facility], a member of [facility] Patient Name: MARÍA PHILLIPS Date of : 1965 Reason for Exam: pain Exam Date: 05/14/2025 [id number] EST Report Status: Final Ordering Provider: JOSHUA [...] osteoarthritis of the first carpal-metacarpal articulation. Code 49967, 72699 -------- FINAL REPOR T -------- Dictated By: Mauro Wright Dictated Date: 05/15/2025 07:41 ET Assigned Physician: Mauro Wright Reviewed and Electronically Signed By: Mauro Wright Signed Date: 025 07:44 ET Workstation ID: [id number] Transcribed By: Self Edit Transcribed Date: 05/15/2025 07:41 ET NM HEPATOBILIARY SYSTEM IMAG ING Reviewed date:05/15/2025 03:07:20 PM Interpretation: Performing Lab: Notes/Report: Note See Note [facility], a member of [facility] Patient Name: MARÍA PHILLIPS Date of : 1965 Reason for Exam: Abdominal pain, upper, recurrent, post cholecystectomy Exam Date: 05/15/2025 [id number] EST Report Status: Final Ordering Provider: ALEXEI [...] hepatobiliary scintigraphy status post cholecystectomy. Telerad PA ([id number]) -------- FINAL REPOR T -------- Dictated By: Dayami Walker i Dictated Date: 05/15/2025 11:46 ET Assigned Physician: Dayami Diehl Reviewed and Electronically Signed By: Dayami Diehl Signed Date: 025 11:48 ET Workstation ID: [id number] Transcribed By: Self Edit Transcribed Date: 05/15/2025 11:[address] CHEST WO CONTRAST Reviewed date:06/03/2025 12:20:20 PM Interpretation: Performing Lab: Notes/Report: Note See Note [facility], a member of [employer] Patient Name: MARÍA PHILLIPS Date of : 1965 Reason for Exam: PULMONARY NODULE Exam Date: 05/28/2025 [id number] EST Report Status: Final Ordering Provider: IKER ROBLERO PCP: IKER ROBLERO History: Pulmonary nodule follow-up. Comparison: 12/05/24 Technique: Helical volumetric imaging of the thorax was performed without IV contrast. DLP: 279.09 mGy/cm [employer] Iterative reconstruction technique Findings: The trachea and [...] 2. No developing thoracic lymphadenopathy. Telerad PA ([id number]) -------- FINAL REPOR T -------- Dictated By: Dayami Walker i Dictated Date: 06/02/2025 09:00 ET Assigned Physician: Dayami Diehl Reviewed and Electronically Signed By: Dayami Diehl Signed Date: 025 09:13 ET Workstation ID: [id number] Transcribed By: Self Edit Transcribed Date: 06/02/2025 [...] Notes/Report: Total CK 87 22-269 unit/L XR KNEE 4+ VIEWS BILAT Reviewed date:01/27/2025 08:06:07 AM Interpretation: Performing Lab: Notes/Report: Note See Note [facility], a member of [employer] Patient Name: MARÍA PHILLIPS Date of : 1965 Reason for Exam: ilateral knee pain Exam Date: 01/22/2025 [id number] EST Report Status: Final Ordering Provider: CELIA [...] Interpretation: Performing Lab: Notes/Report: Note See Note [facility], a member of [employer] Patient Name: MARÍA PHILLIPS Date of : 1965 Reason for Exam: cervicalgia Exam Date: 01/24/2025 [id number] EST Report Status: Final Ordering Provider: CHINO [...] Signed Date: 025 08:00 ET Workstation ID: [id number] Transcribed By: Self Edit Transcribed Date: 01/24/2025 07:[address] SINUSES WO CONTRAST Reviewed date:01/24/2025 12:18:38 PM Interpretation: Performing Lab: Notes/Report: Note See Note [facility], a member of [employer] Patient Name: MARÍA PHILLIPS Date of : 1965 Reason for Exam: deviated septum,sinonasal polyp Exam Date: 01/24/2025 [id number] EST Report Status: Final Ordering Provider: EDMUND [...] Signed Date: 025 08:42 ET Workstation ID: [id number] Transcribed By: Self Edit Transcribed Date: 01/24/2025 08:15 ET XR FLUORO UP TO 1 HOUR Reviewed date:03/11/2025 11:47:24 AM Interpretation: Performing Lab: Notes/Report: Note See Note [facility], a member of [facility] Patient Name: MARÍA PHILLIPS Date of : 1965 Reason for Exam: pain Exam Date: 03/11/2025 [id number] EST Report Status: Final Ordering Provider: DAVID [...] Signed Date: 025 11:03 ET Workstation ID: [id number] Transcribed By: Self Edit Transcribed Date: 03/11/2025 11:02 ET HELICOBACTER PYLORI ANTIGEN, STOOL Reviewed date:05/13/2025 04:03:38 PM Interpretation: Performing Lab: Notes/Report: Helicobacter Pylori Ag DETECTED Not detected A This test was performed at [facility] using a chemiluminescent immunoassay intended [...] Food and Drug Administration. Test performed at [facility], [address] [place] [address] Krystina Austin MD, PhD - Vertical Roll Operator BORRELIA BURGDORFERI ANTIBOD Y Reviewed date:12/06/2024 12:06:22 PM Interpretation: Performing Lab: Notes/Report: Lyme Ab Negative Negative No laboratory evidence of infection with B. burgdorferi (Lyme disease). Negative results may occur in patients recently infected (<=14 days) with B. burgdorferi. If recent infection is suspected, repeat testing on a new sample collected in 7-14 days is recommended. CAMILO IFA WITH TITER AND GIOVANNA SAMSON [...] Rheumatoid Factor 152.0 <15.0 I Unit/mL H SEDIMENTATION RATE Reviewed date:10/28/2024 04:25:48 PM Interpretation: [...] Immature Granulocytes Absolute 0.05 0.00-0.03 K/mcL H HELICOBACTER PYLORI ANTIGEN, STOOL Reviewed date:08/05/2025 03:02:36 PM Interpretation: Performing Lab: Notes/Report: Helicobacter Pylori Ag Not detected Not detected This test was performed at [facility] using a chemiluminescent immunoassay intended [...] Food and Drug Administration. Test performed at [facility], [address] [place] [address] Krystina Austin MD, PhD - Vertical Roll Operator THYROID STIMULATING IMMUNOGL OBULIN Reviewed date:07/29/2025 [...] 0.11 to 0.39 IU/L. Test performed at [facility], [address] [place] [address] Krystina Austin MD, PhD - Vertical Roll Operator THYROID STIMULATING HORMONE WITH REFLEX TO FREE T4 AND FREE T3 Reviewed date:07/24/2025 02:40:06 PM Interpretation: Performing Lab: Notes/Report: TSH 1.20 0.40-4.00 mcIU/mL TRIIODOTHYRONINE FREE Reviewed date:07/24/2025 02:40:06 PM Interpretation: Performing Lab: Notes/Report: T3, Free 316 230-420 pcg/dL THYROXINE FREE Reviewed date:07/24/2025 02:40:06 PM Interpretation: Performing Lab: Notes/Report: Free T4 1.16 0.70-1.80 ng/dL CULTURE ANAEROBIC WITH GRAM STAIN Reviewed date:07/24/2025 09:25:59 AM Interpretation: Performing Lab: Notes/Report: rifAMPin Susc Islt 0.5 S Tetracycline Islt ABBEY 1 S The organism value for this result has been updated. These results have been appended to the previously preliminary verified report. Vancomycin Susc Islt 1 S SPARSE Clindamycin Susc Islt 0.25 S Bacillus [...] NO T ANTHRACIS A Report Susceptibility Report CULTURE WOUND DEEP Reviewed [...] necrosis. TSH Rfx on Abnormal to Free T4-015799 Reviewed date:07/15/2025 03:58:09 PM Interpretation: Performing Lab:[facility] [place], [address] [facility], Phone - [phone], Director - MDL[facility]ishad[facility] Notes/Report: TSH 0.436 0.450-4.500 uIU/mL L T4,Free (Direct) 1.14 0.82-1.77 ng/dL Comp. Metabolic Panel (14)-3 85674 Reviewed date:07/15/2025 08:25:45 AM Interpretation: Performing Lab:[facility] [place], [address] [facility], Phone - [phone], Director - MDJodry Notes/Report: Glucose 75 70-99 [...] (SGPT) 22 0-32 IU/L CBC With Differential/Platel et-986925 Reviewed date:07/15/2025 08:25:37 AM Interpretation: Performing Lab:[facility] [place], [address] [facility], [place], Phone - [phone], Director - Elsa Notes/Report: WBC 7.7 3.4-10.8 [...] % Immature Grans (Abs) 0.0 0.0-0.1 x10E3/uL Ferritin-188778 Reviewed date:07/15/2025 08:25:45 AM Interpretation: Performing Lab:[facility] [place], [address] [facility], Phone - [phone], Director - Elsa Notes/Report: Ferritin 85 15-150 ng/mL Iron and TIBC-423485 Reviewed date:07/15/2025 03:58:09 PM Interpretation: Performing Lab:[facility] [place], [address] [facility], Phone - [phone], Director - Elsa Notes/Report: Iron Bind.Cap.(TIBC) 371 250-450 ug/dL UIBC 318 131-425 ug/dL Iron 53 27-159 ug/dL Iron Saturation 14 15-55 % L URINALYSIS WITH REFLEX MICRO SCOPIC AND CULTURE Reviewed date:01/21/2025 02:02:02 PM Interpretation: Performing Lab: Notes/Report: Specific Comstock Urine 1.034 1.003-1.030 H pH, Urine 6.5 5.0-8.0 pH Leukocytes, Urine Negative Negative Nitrite, Urine Negative Negative Protein, Urine Trace <=Trace mg/dL Glucose, Urine Negative Negative mg/dL Ketones, Urine Negative Negative mg/dL Urobilinogen, Urine 0.2 0.2-1.0 mg/dL Bilirubin, Urine Negative Negative Blood, Urine Negative Negative XR ESOPHAGRAM Reviewed date:01/01/2025 09:27:26 AM Interpretation: Performing Lab: Notes/Report: Note See Note [facility], a member of [employer] Patient Name: MARÍA PHILLIPS Date of : 1965 Reason for Exam: DYSPHAGIA Exam Date: 12/26/2024 [id number] EST Report Status: Final Ordering Provider: BARBARA MORRISSEY PCP: IKER ROBLERO FINDINGS: Double contrast esophagram performed. COMPARISON: Esophagr am March 04, 2022 HISTORY: Patient is a 59-year-old female with history of globus sensation. Epigastric pain. 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: 1 view chest radiograph demonstrates cardiac [...] Signed Date: 025 08:28 ET Workstation ID: [id number] Transcribed By: Self Edit Transcribed Date: 12/26/2024 13:36 ET Resident/PA/JUDICIAL LAW CLERK: Lidia Godinez XR SHOULDER 2+ VIEWS BILAT Reviewed date:01/08/2025 05:02:44 PM Interpretation: Performing Lab: Notes/Report: Note See Note [facility], a member of [employer] Patient Name: MARÍA PHILLIPS Date of : 1965 Reason for Exam: bilateral shoulder pain Exam Date: 01/08/2025 [id number] EST Report Status: Final Ordering Provider: NICHELLE [...] tendinitis and narrowing of subacromial space XR WRIST 3+ VIEWS RIGHT Reviewed date:08/13/2025 08:18:07 AM Interpretation: Performing Lab: Notes/Report: Note See Note [facility], a member of [employer] Patient Name: MARÍA PHILLIPS Date of : 1965 Reason for Exam: right wrist pain Exam Date: 08/12/2025 [id number] EST Report Status: Final Ordering Provider: DUC [...] Impression: Advanced avascular necrosis of the lunate XR KNEE 4+ VIEWS BILAT Reviewed date:08/19/2025 08:27:06 AM Interpretation: Performing Lab: Notes/Report: Note See Note [facility], a member of [facility] Patient Name: MARÍA PHILLIPS Date of : 1965 Reason for Exam: bilateral knee pain Exam Date: 08/14/2025 [id number] EST Report Status: Final Ordering Provider: CELIA [...] progressed from prior x-rays obtained 01/22/2025. XR CERVICAL SPINE 4-5 VIEWS Reviewed date:11/19/2024 04:14:57 PM Interpretation: Performing Lab: Notes/Report: Note See Note [facility], a member of [facility] Patient Name: MARÍA PHILLIPS Date of : 1965 Reason for Exam: OTHER Exam Date: 11/18/2024 [id number] EST Report Status: Final Ordering Provider: IKER [...] to the prior neck CTA. Telerad PA ([id number]) -------- FINAL REPOR T -------- Dictated By: Dayami Walker i Dictated Date: 11/19/2024 13:40 ET Assigned Physician: Dayami Diehl Reviewed and Electronically Signed By: Dayami Diehl Signed Date: 025 13:45 ET Workstation ID: [id number] Transcribed By: Self Edit Transcribed Date: 11/19/2024 13:40 ET EKG Reviewed date:09/16/2025 09:19:30 AM Interpretation: Performing Lab: Notes/Report: ECGDiastolicBP 68 ECGHr 73 ECGPRInterval 158 ECGPWaveAxis 34 ECGQRSDuration 78 ECGQrsWaveAxis 33 ECGQTcInterval 404 ECGQTInterval 382 ECGSystolicBP 116 ECGTWaveAxis 31 RR_DiastolicBP 0 RR_MaxRRInterval 0 RR_MeanHR 0 RR_MeanRRInterval 0 RR_MinRRInterval 0 RR_NumBeats 0 RR_NumNormalBeats 0 RR_SystolicBP 0 XR WRIST 3+ VIEWS RIGHT Reviewed date:09/16/2025 09:19:30 AM Interpretation: Performing Lab: Notes/Report: See Note [facility], a member of [facility] AP, lateral, oblique of the right wrist [...] with flattening and sclerosis of the lunate Reason For Referral Reason [facility] Diagnosis 1 Shoulder pain, unspe cified chronicity, unspecified laterality (M25.519) Referral Organization [facility] [address] Referring Provider First Name IKER Referring Provider Last Name [place] Referring Provider Speciality Preventive Medicine Referred Provider Specialty Orthopedic S urgery General Notes Cox[facility]ia 025 10:47:57 AM > Referral faxed over to [facility] for Bilateral shoulder pain P. [phone] Referral Priority Routine Reason [facility]; sleep study; loud snoring Diagnosis 1 Loud snoring (R06.83 ) Referral Organization [facility] [address] Referring Provider First Name IKER Referring Provider Last Name [place] Referring Provider Speciality Preventive Medicine Referred Provider Specialty Sleep Medici ne General Notes [address] [facility] [address]. [address] [place] (p) [phone], (f) [phone] Clinical Notes Maryann Cox 02:10:39 PM > I called the office and they informed me that they had reached out to the patient and are just waiting for a callback to schedule an appt Referral Priority Routine Reason pain management : ri ght rib pain Diagnosis 1 Rib pain on right si de (R07.81) Referral Organization [facility] [address] Referring Provider First Name IKER Referring Provider Last Name [place] Referring Provider [facility] Referred Provider Specialty Pain Medicin e Clinical Notes Zoila Narayanan 04/25 09:57:57 AM > Family Physiatry, Address: [address] [place] [address], , Fax number: , Maryann Cox 06/17/2025 02:17:36 PM > The patient was scheduled for 06/05 but she no showed and has not rescheduled yet Referral Priority Routine Reason [facility]; easy bruising Diagnosis 1 Easy bruising (R23.3 ) Referral Organization [facility] [address] Referring Provider First Name IKER Referring Provider Last Name [place] Referring Provider Speciality Preventive Medicine Referred Provider Specialty Dermatology General Notes [address] [place]. 106, (p) [phone], (f) [phone] Clinical Notes Caren Narayanan 08:43:03 AM > referral faxed with notes Referral Priority Routine Reason Dr. Hoffman Diagnosis 1 Pulmonary nodule (R9 1.1) Diagnosis 2 Centrilobular emphys christine (J43.2) Referral Organization [facility] [address] Referring Provider First Name IKER Referring Provider Last Name [place] Referring Provider Speciality Preventive Medicine Referred Provider Specialty Pulmonology General Notes XAVIER VILLANUEVA 06/09 08:34:07 AM > Referral faxed, Dr Hoffman - Pulmonology and Sleep Medicine, [address] [place] [address], , Clinical Notes KennyMaryann 10/2025 02:17:04 PM > The patient was scheduled for 06/05 but she no showed and has not rescheduled yet Referral Priority Routine Reason [facility] Diagnosis 1 Chronic pain syndrom e (G89.4) Diagnosis 2 Cervical pain (M54.2 ) Referral Organization [facility] [address] Referring Provider First Name IKER Referring Provider Last Name [place] Referring Provider [facility] Referred Provider Specialty Orthopedic S urgery General Notes XAVIER VILLANUEVA 06/26 08:13:11 AM > Referral has been faxed, [facility], [address] [place] [phone], , Clinical Notes Kenny, Maryann 02:25:30 PM > I called the office, and they informed me they had reached out to the patient multiple times with no response. I then spoke with the patient, who stated she was not aware a referral had been sent. She said she will call the office back Referral Priority Stat Reason Spine Surgery - [facility] Diagnosis 1 Lumbar back pain (M5 4.50) Diagnosis 2 Chronic lumbar radic ulopathy (M54.16) Referral Organization [facility] [address] Referring Provider First Name IKER Referring Provider Last Name [place] Referring Provider Speciality Preventive Medicine Referred Provider Specialty Spinal Cord Injury Medicine General Notes XAVIER VILLANUEVA 07/08 03:54:08 PM > referral has been initiated & faxed, [facility]- Spine Surgery, [address] [place] [address], [address], [place], , Most recent MRI was done at [facility] 01/14/25 Clinical Notes Maryann Cox 01/2025 02:17:15 PM > I called [facility] Spine Surgery, and they are requesting an updated MRI taken within the past year. They asked that we fax it to their office. Once received, they will review the patient's records and contact her to schedule., Maryann Cox 07/17/2025 11:04:32 AM > Scheduled for 07/23 at 1 pm. Pt aware Referral Priority Stat Reason [facility] Gastroenterology Diagnosis 1 Epigastric abdominal pain (R10.13) Referral Organization [facility] [address] Referring Provider First Name IKER Referring Provider Last Name ANNIKA Referring Provider Speciality Preventive Medicine Referred Provider Specialty Gastroentero logwendy General Notes XAVIER VILLANUEVA 09/24 08:31:39 AM EST > Referral has been faxed, [facility] - Gastroenterology, [facility], [address] [place] [phone], Clinical Notes Maryann Cox 03:18:32 PM EST > [phone], Maryann Cox 10/10/2025 02:21:42 PM EST > I called the office and they informed me that they spoke with the patient declined to schedule an appt Referral Priority Urgent Medications Medication SIG (Take, Route, Frequency, Duration) Notes Start Date End Date Status LORazepam 0.5 MG Tablet 1 tablet at bedt ivanna as needed Orally 3 times a day Active Gabapentin 300 MG Capsule 1 capsule Oral ly 3 times a day; Duration: 30 days Active Polymyxin B-Trimethoprim 33771-5.1 UNIT/ML Solution 1 drop into affected eye Ophthalmic Four times a day; Duration: 3 days 09/04/2025 Active ZyrTEC 10 MG Tablet Chewable 1 tablet Orally Once a day A ctive Social History Section Notes: ETOH Use: Social [...] Status W/U Status Risk Notes Problem Hyperkalemia (03942788) Hyperkalemia (E87.5) Active confirmed Problem Chronic pain syndrome (276012027) Chronic pain syndrome (G89.4) Active confirmed Problem Centrilobular emphysema (58035898) Centrilobular emphysema (J43.2) Active confirmed Problem Pulmonary nodule (784188897) Pulmonary nodule (R91.1) Active confirmed Problem Breathing painful (57652581) Rib pain on right side (R07.81) Active confirmed Problem Tremor (88467050) Tremor (R25.1) Active confirm ed Problem Chronic fatigue syndrome (11798958) Chronic fatigue (R53.82) Active confirmed Problem Paresthesia (finding) (11085387) Paresthesias (R20.2) Active confirmed Problem Lumbar radiculopathy (786080964) Chronic lumbar radiculopathy (M54.16) Active confirmed Problem Cervical pain (48971342) Cervical pain (M54.2) Active confirmed Problem Mixed anxiety and depressive disorder (240815067) Depression with anxiety (F41.8) Active confirmed Problem 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 Problem Inactive tuberculosis (finding) (25328743) History of latent tuberculosis (Z86.15) Active confirmed Problem Rheumatoid arthritis (14752399) Rheumatoid arthritis involving multiple sites, unspecified whether rheumatoid factor present (M06.9) Active confirmed Problem Rheumatoid arthritis (77270359) Rheumatoid arthritis involving multiple sites with positive rheumatoid factor (M05.79) Active confirmed Problem Lymphadenopathy (49025974) Lymphadenopathy, axillary (R59.0) Active confirmed Problem Cervical spondylosis (953798827) Cervical spondylosis (M47.812) Active confirmed Problem General weakness (31582581) Generalized weakness (R53.1) Active confirmed Problem 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3 [facility] [address] [address] 11/18/2024 IKER ROBLERO Tremor R25.1 ; Cervi veronica spondylosis M47.812 ; Rock's disease E06.3 ; Pain in right arm M79.601 ; Pain in left arm M79.602 ; History of recent fall Z91.81 ; Rheumatoid arthritis involving multiple sites with positive rheumatoid factor M05.79 ; Slipped rib syndrome M94.0 and Depression with anxiety F41.8 [facility] [address] [address] 01/22/2025 CHINO BIRKS Neck pain on right s angela M54.2 ; Rheumatoid arthritis involving multiple sites with positive rheumatoid factor M05.79 ; Slipped rib syndrome M94.0 ; Rock's disease E06.3 and Depression with anxiety F41.8 [facility] [address] [address] 02/03/2025 CHINO YBARRA Lymphadenopathy, axillary R59.0 ; Rheumatoid arthritis involving multiple sites, unspecified whether rheumatoid factor present M06.9 ; Rock's disease E06.3 ; Slipped rib syndrome M94.0 ; Anxiety, generalized F41.1 and Tendon calcification M65.80 [facility] [address] [address] 03/05/2025 IKER ROBLERO Rib pain on right si de R07.81 ; Annual physical exam Z00.00 ; Chronic fatigue R53.82 ; Hyperkalemia E87.5 ; Slipped rib syndrome M94.0 ; Depression with anxiety F41.8 and Rheumatoid arthritis involving multiple sites with positive rheumatoid factor M05.79 [facility] [address] 03/21/2025 IKER ROBLERO Heart palpitations R00.2 ; Weakness R53.1 and Dyspnea on exertion R06.09 [facility] [address] 04/23/2025 IKER ROBLERO Depression with anxi ety F41.8 ; Heavy alcohol use F10.90 ; Chronic pain syndrome G89.4 ; Slipped rib syndrome M94.0 ; Rheumatoid arthritis involving multiple sites with positive rheumatoid factor M05.79 ; Pulmonary nodule R91.1 ; History of latent tuberculosis Z86.15 and Loud snoring R06.83 [facility] [address] 05/05/2025 IKER ROBLERO Spontaneous ecchymos es R23.3 ; Skin tear of left upper extremity S41.112A ; Irregular bowel habits R19.8 ; Depression with anxiety F41.8 ; Chronic pain syndrome G89.4 and Rheumatoid arthritis involving multiple sites with positive rheumatoid factor M05.79 [facility] [address] 06/18/2025 IKER ROBLERO Chronic pain syndrom e G89.4 ; Cervical pain M54.2 and Recurrent low back pain M54.50 [facility] [address] 09/04/2025 IKER ROBLERO Redness of left eye H57.89 [facility] [address] [place] [address] 10/08/2025 Aleah Svrcek Rash and nonspecific skin eruption R21 ; Dry skin L85.3 ; Influenza J11.1 ; Rheumatoid arthritis involving multiple sites, unspecified whether rheumatoid factor present M06.9 and Encounter for examination of blood pressure without abnormal findings Z01.30 [facility] [address] [place] [address] 10/29/2024 IKER [place] [facility] [address] [place] [address] 11/04/2024 IKER [place] [facility] [address] [place] [address] 11/07/2024 IKER [place] [facility] [address] [place] [address] 11/19/2024 IKER LEDESMAHAM [facility] [address] [place] [address] 12/03/2024 IKER [place] [facility] [address] [place] [address] 12/13/2024 IKER [place] [facility] [address] [place] [address] 12/13/2024 IKER ROBLERO Generalized weakness R53.1 and Paresthesias R20.2 [facility] [address] [place] [address] 12/16/2024 IKER [place] [facility] [address] [place] [address] 12/26/2024 IKER [place] [facility] [address] [place] [address] 12/31/2024 IKER [place] [facility] [address] [place] [address] 01/02/2025 IKER LEDESMAHAM [facility] [address] [place] [address] 01/07/2025 IKER LEDESMAHAM [facility] [address] [place] [address] 01/21/2025 IKER LEDESMAHAM [facility] [address] [place] [address] 01/24/2025 IKER [place] [facility] [address] [place] [address] 02/03/2025 IKER [place] [facility] [address] [place] 02/03/2025 IKER [place] [facility] [address] [place] [address] 02/10/2025 IKER [place] [facility] [address] [place] 03/05/2025 IKER [place] Chronic fatigue R53. 82 ; Elevated lipids E78.5 ; Anemia due to vitamin B12 deficiency, unspecified B12 deficiency type D51.9 and Vitamin D deficiency E55.9 [facility] [address] [place] 03/05/2025 IKER [place] [facility] [address] [place] 03/05/2025 IKER [place] [facility] [address] [place] 03/05/2025 IKER [place] [facility] [address] [place] [address] 03/21/2025 IKER [place] [facility] [address] [place] 03/24/2025 IKER [place] [facility] [address] [place] [address] 04/22/2025 IKER [place] [facility] [address] [place] [address] 04/25/2025 IKER [place] [facility] [address] [place] [address] 05/01/2025 IKER [place] [facility] [address] [place] [address] 05/05/2025 IKER [place] [facility] [address] [place] [address] 05/06/2025 IKER [place] [facility] [address] [place] [address] 05/13/2025 IKER [place] [facility] [address] [place] [address] 05/13/2025 IKER [place] [facility] [address] [place] [address] 06/03/2025 IKER [place] [facility] [address] [place] [address] 06/18/2025 IKER [place] [facility] [address] [place] [address] 06/19/2025 IKER LEDESMAHAM Cervical pain M54.2 ; Cervical spondylosis M47.812 and Chronic pain syndrome G89.[address] [facility] [address] [place] [address] 06/25/2025 IKER [place] [facility] [address] [place] [address] 07/08/2025 IKER [place] [facility] [address] [place] [address] 07/08/2025 IKER [place] [facility] [address] [place] [address] 07/09/2025 IKER [place] [facility] [address] [place] [address] 07/15/2025 IKER LEDESMAHAM Rock's disease E06.3 [facility] [address] [place] [address] 08/14/2025 IKER [place] [facility] [address] [place] [address] 09/04/2025 IKER [place] [facility] [address] [place] [address] 09/19/2025 IKER [place] [facility] [address] [place] [address] 10/07/2025 IKER [place] [facility] [address] [place] [address] 10/07/2025 IKER [place] [facility] [address] [place] [address] 12/09/2024 IKER [place] [facility] [address] [place] [address] 12/13/2024 IKER ANNIKA [facility] [address] [place] [address] 12/14/2024 IKER ANNIKA [facility] [address] [place] [address] 12/14/2024 IKER [place] [facility] [address] [place] [address] 12/15/2024 IKER ANNIKA [facility] [address] [place] [address] 12/18/2024 IKER [place] [facility] [address] [place] [address] 01/01/2025 IKER [place] [facility] [address] [place] [address] 01/21/2025 IKER [place] [facility] [address] [place] [address] 01/27/2025 IKER [place] Breast cancer screen ing by mammogram Z12.31 [facility] [address] [place] [address] 03/21/2025 IKER [place] [facility] [address] [place] [address] 04/30/2025 IKER [place] [facility] [address] [place] [address] 05/01/2025 IKER [place] [facility] [address] [place] [address] 05/01/2025 IKER [place] [facility] [address] [place] [address] 06/06/2025 IKER [place] [facility] [address] [place] [address] 06/09/2025 IKER [place] [facility] [address] [place] [address] 06/14/2025 IKER [place] [facility] [address] [place] [address] 06/20/2025 IKER [place] [facility] [address] [place] [address] 06/23[facility] [address] [place] [address] 06/30/2025 [facility] [address] [place] [address] 07/12/2025 [facility] Adult general medica l exam Z00.00 and Screening for thyroid disorder Z13.29 [facility] [address] [place] [address] 07/15/2025 [facility] [address] [place] [address] 07/16/2025 [facility] [address] [place] [address] 09/04/2025 [facility] [address] [place] [address] 09/22/2025 [facility] [address] [place] [address] 09/22/2025 [facility] [address] [place] [address] 09/22/2025 [facility] [address] [place] [address] 09/23/2025 [facility] [address] [place] [address] 09/23/2025 [facility] [address] [place] [address] 09/23/2025 [facility] [address] [place] [address] 09/23/2025 [facility] [address] [place] [address] 09/23/2025 [facility] [address] [place] [address] 09/23/2025 [facility] [address] [place] [address] 09/23/2025 [facility] [address] [place] [address] 09/24/2025 [facility] [address] [place] [address] 09/24/2025 [place] [facility] [address] [place] [address] 09/26/2025 [place] [facility] [address] [place] [address] 09/26/2025 [place] [facility] [address] [place] [address] 09/26/2025 [place] [facility] [address] [place] [address] 10/07/2025 [place] [place] [facility] [address] [address] 10/07/2025 [place] [facility] [address] [facility] [address] [place] [address] 10/07/2025 [place] [place] [facility] [address] [address] 10/08/2025 IKER ANNIKA Assessments Encounter Date Diagnosis (ICD [...] Patient reports history of RA. Follows with on site coordinator Dr. Clark out of [place]. Has been treated previously with Humira, Enbrel, [...] was diagnosed by Dr. Dubon out of [place], [place]. Taking methocarbamol 750 mg 3 times [...] reviewed. Dictation completed with the use of [employer] voice recognition software, prone to medical misidentifications [...] Patient reports history of RA. Follows with on site coordinator Dr. Clark out of [place]. Has been treated previously with Humira, Enbrel, [...] was diagnosed by Dr. Dubon out of [place]. Taking methocarbamol 750 mg 3 times [...] reviewed. Dictation completed with the use of [employer] voice recognition software, prone to medical misidentifications [...] for 11/20/2024. #Recent fall: Patient seen at [facility] ED 11/02/2024 s/p fall at work. [...] diffuse joint pain and fatigue. Follows with on site coordinator Dr. Clark out of [place], records requested and not yet available for my review. 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 States this was diagnosed by Dr. Dubon out of [place], [place]. Taking methocarbamol 750 mg 3 times [...] reviewed. Dictation completed with the use of [employer] voice recognition software, prone to medical misidentifications [...] for 11/20/2024. #Recent fall: Patient seen at [facility] ED 11/02/2024 s/p fall at work. [...] diffuse joint pain and fatigue. Follows with on site coordinator Dr. Clark out of [place], records requested and not yet available for my review. 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 States this was diagnosed by Dr. Dubon out of [place]. Taking methocarbamol 750 mg 3 times [...] reviewed. Dictation completed with the use of [employer] voice recognition software, prone to medical misidentifications [...] was diagnosed by Dr. Dubon out of [place]. Taking methocarbamol 750 mg 3 times [...] Dictation was accomplished with the use of [employer] voice recognition software, which is prone to [...] was diagnosed by Dr. Dubon out of [place]. Taking methocarbamol 750 mg 3 times [...] Dictation was accomplished with the use of [employer] voice recognition software, which is prone to [...] was diagnosed by Dr. Dubon out of [place]. Taking methocarbamol 750 mg 3 times daily and gabapentin 100 mg 3 times daily with moderate relief of discomfort. # Anxiety: Stable mood in office. Follows with psychiatric nurse practitioner Cassidy Lamagna as well as therapist. Continue lorazepam 1 [...] Dictation was accomplished with the use of [employer] voice recognition software, which is prone to [...] was diagnosed by Dr. Dubon out of [place]. Taking methocarbamol 750 mg 3 times [...] Dictation was accomplished with the use of [employer] voice recognition software, which is prone to [...] rib syndrome: Follows with Dr. Dubon with [facility]. Underwent repair 12/17/2024. #Ventral hernia: Surgical [...] arthritis: + Rheumatoid factor (152). Follows with on site coordinator Dr. Joshua Kaplan out of [place]. Follow-up labs including CAMILO, ESR/CRP, and comprehensive [...] Follows with psychiatric provider Clarice Lara with [facility]. Taking clonazepam 0.5 mg once daily with [...] dysfunction. #Hyperkalemia: Patient reports she was at [facility] ED recently at which time her [...] reviewed. Dictation completed with the use of [employer] voice recognition software, prone to medical misidentifications [...] rib syndrome: Follows with Dr. Dubon with [facility]. Underwent repair 12/17/2024. #Ventral hernia: Surgical [...] arthritis: + Rheumatoid factor (152). Follows with on site coordinator Dr. Joshua Kaplan out of [place]. Follow-up labs including CAMILO, ESR/CRP, and comprehensive [...] Follows with psychiatric provider Clarice Lara with [facility]. Taking clonazepam 0.5 mg once daily with [...] dysfunction. #Hyperkalemia: Patient reports she was at [facility] ED recently at which time her [...] reviewed. Dictation completed with the use of [employer] voice recognition software, prone to medical misidentifications [...] reviewed. Dictation completed with the use of [employer] voice recognition software, prone to medical misidentifications [...] reviewed. Dictation completed with the use of [employer] voice recognition software, prone to medical misidentifications [...] ER follow-up hospital follow-up. María presented to [facility] ED 04/19/2025 with chief complaint [...] any pain medication. Previously followed with paint line supervisor Dr. Trivedi who provided steroid injections. Historically [...] added opioid use. WIll refer to paint line supervisor with goal of establishing safe pain management regimen. #RA: Follows with Joshua Kaplan MD out of [place]. Discussed possibility of chronic pain being related [...] reviewed. Dictation completed with the use of [employer] voice recognition software, prone to medical misidentifications [...] ER follow-up hospital follow-up. María presented to [facility] ED 04/19/2025 with chief complaint [...] any pain medication. Previously followed with paint line supervisor Dr. Trivedi who provided steroid injections. Historically [...] added opioid use. WIll refer to paint line supervisor with goal of establishing safe pain management regimen. #RA: Follows with Joshua Kaplan MD out of [place]. Discussed possibility of chronic pain being related [...] reviewed. Dictation completed with the use of [employer] voice recognition software, prone to medical misidentifications [...] Patient requesting urgent colonoscopy per recommendation of [facility] surgeon Jewel Dubon. On review of [...] TID without symptom improvement. Follows with paint line supervisor Dr. Trivedi. Historically the patient has tried [...] reviewed. Dictation completed with the use of [employer] voice recognition software, prone to medical misidentifications [...] Patient requesting urgent colonoscopy per recommendation of [facility] surgeon Jewel Dubon. On review of [...] TID without symptom improvement. Follows with paint line supervisor Dr. Trivedi. Historically the patient has tried [...] reviewed. Dictation completed with the use of [employer] voice recognition software, prone to medical misidentifications [...] without significant symptom improvement. Follows with paint line supervisor Dr. Trivedi, orthopedic provider Nichelle Carrillo PA-C [...] reviewed. Dictation completed with the use of [employer] voice recognition software, prone to medical misidentifications [...] without significant symptom improvement. Follows with paint line supervisor Dr. Trivedi, orthopedic provider Nichelle Carrillo PA-C [...] reviewed. Dictation completed with the use of [employer] voice recognition software, prone to medical misidentifications [...] Adult general medical exam (ICD-10 - Z00.00) 10/08/2025 Dry skin (ICD-10 - L85.3) #Rash/dry skin. Very small excoriation to left flank. Diffuse dry skin noted throughout. Unclear etiology but discussed possible contributing factors. Reassurance provided this is not consistent with shingles. Encouraged to use topical hydrocortisone 1% [id number] twice a day for itching. Encouraged increased hydration, using Eucerin cream for moisturizer daily and consider cool-mist humidifier in her bedroom. Follow-up if no improvement or with any new or worsening symptoms. #Influenza. Reports she was seen at urgent care 3 days ago and diagnosed with the flu. She is being treated symptomatically. Encourage fluids and rest. Lungs are clear on exam. Remains afebrile. #RA. Following with rheumatology. Recent consult note reviewed. Case discussed with collaborating physician Ning Morrison who reviewed the assessment and plan. Chart, medications, labs, vital signs reviewed. Dictation was accomplished with the use of [employer] voice recognition software, prone to medical misidentifications and grammatical errors. This is unintentional and the practitioner does try to identify and correct these, but some could still be present. Please do not hesitate to contact practitioner for clarification. All questions answered to patients satisfaction. Patient verbalized understanding of diagnosis and treatments explained. To call sooner prior to next visit it any questions/concerns arise. 10/08/2025 Rash and nonspecific skin eruption (ICD-10 - R21) #Rash/dry skin. Very small excoriation to left flank. Diffuse dry skin noted throughout. Unclear etiology but discussed possible contributing factors. Reassurance provided this is not consistent with shingles. Encouraged to use topical hydrocortisone 1% [id number] twice a day for itching. Encouraged increased hydration, using Eucerin cream for moisturizer daily and consider cool-mist humidifier in her bedroom. Follow-up if no improvement or with any new or worsening symptoms. #Influenza. Reports she was seen at urgent care 3 days ago and diagnosed with the flu. She is being treated symptomatically. Encourage fluids and rest. Lungs are clear on exam. Remains afebrile. #RA. Following with rheumatology. Recent consult note reviewed. Case discussed with collaborating physician Ning Morrison who reviewed the assessment and plan. Chart, medications, labs, vital signs reviewed. Dictation was accomplished with the use of [employer] voice recognition software, prone to medical misidentifications and grammatical errors. This is unintentional and the practitioner does try to identify and correct these, but some could still be present. Please do not hesitate to contact practitioner for clarification. All questions answered to patients satisfaction. Patient verbalized understanding of diagnosis and treatments explained. To call sooner prior to next visit it any questions/concerns arise. 07/15/2025 Rock's disease (ICD-10 - E06.3) 09/04/2025 [...] reviewed. Dictation completed with the use of [employer] voice recognition software, prone to medical misidentifications and grammatical errors. All errors are unintentional. Although the practitioner does try to identify and correct errors, some may be present. Please do not hesitate to contact the practitioner for clarification. 03/05/2025 Elevated lipids (ICD-10 - E78.5) 10/08/2025 Influenza (ICD-10 - J11.1) #Rash/dry skin. Very small excoriation to left flank. Diffuse dry skin noted throughout. Unclear etiology but discussed possible contributing factors. Reassurance provided this is not consistent with shingles. Encouraged to use topical hydrocortisone 1% [id number] twice a day for itching. Encouraged increased hydration, using Eucerin cream for moisturizer daily and consider cool-mist humidifier in her bedroom. Follow-up if no improvement or with any new or worsening symptoms. #Influenza. Reports she was seen at urgent care 3 days ago and diagnosed with the flu. She is being treated symptomatically. Encourage fluids and rest. Lungs are clear on exam. Remains afebrile. #RA. Following with rheumatology. Recent consult note reviewed. Case discussed with collaborating physician Ning Morrison who reviewed the assessment and plan. Chart, medications, labs, vital signs reviewed. Dictation was accomplished with the use of [employer] voice recognition software, prone to medical misidentifications and grammatical errors. This is unintentional and the practitioner does try to identify and correct these, but some could still be present. Please do not hesitate to contact practitioner for clarification. All questions answered to patients satisfaction. Patient verbalized understanding of diagnosis and treatments explained. To call sooner prior to next visit it any questions/concerns arise. 07/12/2025 Screening for thyroid disorder (ICD-10 - [...] without significant symptom improvement. Follows with paint line supervisor Dr. Trivedi, orthopedic provider Nichelle Carrillo PA-C [...] reviewed. Dictation completed with the use of [employer] voice recognition software, prone to medical misidentifications [...] Patient requesting urgent colonoscopy per recommendation of [facility] surgeon Jewel Dubon. On review of [...] TID without symptom improvement. Follows with paint line supervisor Dr. Trivedi. Historically the patient has tried [...] reviewed. Dictation completed with the use of [employer] voice recognition software, prone to medical misidentifications [...] reviewed. Dictation completed with the use of [employer] voice recognition software, prone to medical misidentifications [...] ER follow-up hospital follow-up. María presented to [facility] ED 04/19/2025 with chief complaint [...] any pain medication. Previously followed with paint line supervisor Dr. Trivedi who provided steroid injections. Historically [...] added opioid use. WIll refer to paint line supervisor with goal of establishing safe pain management regimen. #RA: Follows with Joshua Kaplan MD out of [place]. Discussed possibility of chronic pain being related [...] reviewed. Dictation completed with the use of [employer] voice recognition software, prone to medical misidentifications [...] rib syndrome: Follows with Dr. Dubon with [facility]. Underwent repair 12/17/2024. #Ventral hernia: Surgical [...] arthritis: + Rheumatoid factor (152). Follows with on site coordinator Dr. Joshua Kaplan out of [place]. Follow-up labs including CAMILO, ESR/CRP, and comprehensive [...] Follows with psychiatric provider Clarice Lara with [facility]. Taking clonazepam 0.5 mg once daily with [...] dysfunction. #Hyperkalemia: Patient reports she was at [facility] ED recently at which time her [...] reviewed. Dictation completed with the use of [employer] voice recognition software, prone to medical misidentifications [...] was diagnosed by Dr. Dubon out of [place], [place]. Taking methocarbamol 750 mg 3 times [...] Dictation was accomplished with the use of [employer] voice recognition software, which is prone to [...] was diagnosed by Dr. Dubon out of [place], [place]. Taking methocarbamol 750 mg 3 times [...] Dictation was accomplished with the use of [employer] voice recognition software, which is prone to [...] for 11/20/2024. #Recent fall: Patient seen at [facility] ED 11/02/2024 s/p fall at work. [...] diffuse joint pain and fatigue. Follows with on site coordinator Dr. Clark out of [place], records requested and not yet available for my review. 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 States this was diagnosed by Dr. Dubon out of [place], [place]. Taking methocarbamol 750 mg 3 times [...] reviewed. Dictation completed with the use of [employer] voice recognition software, prone to medical misidentifications [...] Patient reports history of RA. Follows with on site coordinator Dr. Clark out of [place]. Has been treated previously with Humira, Enbrel, [...] was diagnosed by Dr. Dubon out of [place], [place]. Taking methocarbamol 750 mg 3 times [...] reviewed. Dictation completed with the use of [employer] voice recognition software, prone to medical misidentifications [...] for 11/20/2024. #Recent fall: Patient seen at [facility] ED 11/02/2024 s/p fall at work. [...] diffuse joint pain and fatigue. Follows with on site coordinator Dr. Clark out of [place], records requested and not yet available for my review. 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 States this was diagnosed by Dr. Dubon out of [place], [place]. Taking methocarbamol 750 mg 3 times [...] reviewed. Dictation completed with the use of [employer] voice recognition software, prone to medical misidentifications [...] Patient reports history of RA. Follows with on site coordinator Dr. Clark out of [place]. Has been treated previously with Humira, Enbrel, [...] was diagnosed by Dr. Dubon out of [place], [place]. Taking methocarbamol 750 mg 3 times [...] reviewed. Dictation completed with the use of [employer] voice recognition software, prone to medical misidentifications [...] was diagnosed by Dr. Dubon out of [place]. Taking methocarbamol 750 mg 3 times [...] Dictation was accomplished with the use of [employer] voice recognition software, which is prone to [...] was diagnosed by Dr. Dubon out of [place]. Taking methocarbamol 750 mg 3 times [...] Dictation was accomplished with the use of [employer] voice recognition software, which is prone to [...] rib syndrome: Follows with Dr. Dubon with [facility]. Underwent repair 12/17/2024. #Ventral hernia: Surgical [...] arthritis: + Rheumatoid factor (152). Follows with on site coordinator Dr. Joshua Kaplan out of [place]. Follow-up labs including CAMILO, ESR/CRP, and comprehensive [...] Follows with psychiatric provider Clarice Lara with [facility]. Taking clonazepam 0.5 mg once daily with [...] dysfunction. #Hyperkalemia: Patient reports she was at [facility] ED recently at which time her [...] reviewed. Dictation completed with the use of [employer] voice recognition software, prone to medical misidentifications [...] Patient requesting urgent colonoscopy per recommendation of [facility] surgeon Jewel Dubon. On review of [...] TID without symptom improvement. Follows with paint line supervisor Dr. Trivedi. Historically the patient has tried [...] reviewed. Dictation completed with the use of [employer] voice recognition software, prone to medical misidentifications [...] ER follow-up hospital follow-up. María presented to [facility] ED 04/19/2025 with chief complaint [...] any pain medication. Previously followed with paint line supervisor Dr. Trivedi who provided steroid injections. Historically [...] added opioid use. WIll refer to paint line supervisor with goal of establishing safe pain management regimen. #RA: Follows with Joshua Kaplan MD out of [place]. Discussed possibility of chronic pain being related [...] reviewed. Dictation completed with the use of [employer] voice recognition software, prone to medical misidentifications and grammatical errors. All errors are unintentional. Although the practitioner does try to identify and correct errors, some may be present. Please do not hesitate to contact the practitioner for clarification. Total time was 60 minutes spent with >50% on coordination of care and patient education. 06/19/2025 Chronic pain syndrome (ICD-10 - G89.4) 10/08/2025 Rheumatoid arthritis involving multiple sites, unspecified whether rheumatoid factor present (ICD-10 - M06.9) #Rash/dry skin. Very small excoriation to left flank. Diffuse dry skin noted throughout. Unclear etiology but discussed possible contributing factors. Reassurance provided this is not consistent with shingles. Encouraged to use topical hydrocortisone 1% [id number] twice a day for itching. Encouraged increased hydration, using Eucerin cream for moisturizer daily and consider cool-mist humidifier in her bedroom. Follow-up if no improvement or with any new or worsening symptoms. #Influenza. Reports she was seen at urgent care 3 days ago and diagnosed with the flu. She is being treated symptomatically. Encourage fluids and rest. Lungs are clear on exam. Remains afebrile. #RA. Following with rheumatology. Recent consult note reviewed. Case discussed with collaborating physician Ning Morrison who reviewed the assessment and plan. Chart, medications, labs, vital signs reviewed. Dictation was accomplished with the use of [employer] voice recognition software, prone to medical misidentifications and grammatical errors. This is unintentional and the practitioner does try to identify and correct these, but some could still be present. Please do not hesitate to contact practitioner for clarification. All questions answered to patients satisfaction. Patient verbalized understanding of diagnosis and treatments explained. To call sooner prior to next visit it any questions/concerns arise. 10/08/2025 Encounter for examination of blood pressure without abnormal findings (ICD-10 - Z01.30) #Rash/dry skin. Very small excoriation to left flank. Diffuse dry skin noted throughout. Unclear etiology but discussed possible contributing factors. Reassurance provided this is not consistent with shingles. Encouraged to use topical hydrocortisone 1% [id number] twice a day for itching. Encouraged increased hydration, using Eucerin cream for moisturizer daily and consider cool-mist humidifier in her bedroom. Follow-up if no improvement or with any new or worsening symptoms. #Influenza. Reports she was seen at urgent care 3 days ago and diagnosed with the flu. She is being treated symptomatically. Encourage fluids and rest. Lungs are clear on exam. Remains afebrile. #RA. Following with rheumatology. Recent consult note reviewed. Case discussed with collaborating physician Ning Morrison who reviewed the assessment and plan. Chart, medications, labs, vital signs reviewed. Dictation was accomplished with the use of [employer] voice recognition software, prone to medical misidentifications and grammatical errors. This is unintentional and the practitioner does try to identify and correct these, but some could still be present. Please do not hesitate to contact practitioner for clarification. All questions answered to patients satisfaction. Patient verbalized understanding of diagnosis and treatments explained. To call sooner prior to next visit it any questions/concerns arise. 05/05/2025 Chronic pain syndrome (ICD-10 - G89.4) [...] Patient requesting urgent colonoscopy per recommendation of [facility] surgeon Jewel Dubon. On review of [...] TID without symptom improvement. Follows with paint line supervisor Dr. Trivedi. Historically the patient has tried [...] reviewed. Dictation completed with the use of [employer] voice recognition software, prone to medical misidentifications [...] ER follow-up hospital follow-up. María presented to [facility] ED 04/19/2025 with chief complaint [...] any pain medication. Previously followed with paint line supervisor Dr. Trivedi who provided steroid injections. Historically [...] added opioid use. WIll refer to paint line supervisor with goal of establishing safe pain management regimen. #RA: Follows with Joshua Kaplan MD out of [place]. Discussed possibility of chronic pain being related [...] reviewed. Dictation completed with the use of [employer] voice recognition software, prone to medical misidentifications [...] rib syndrome: Follows with Dr. Dubon with [facility]. Underwent repair 12/17/2024. #Ventral hernia: Surgical [...] arthritis: + Rheumatoid factor (152). Follows with on site coordinator Dr. Joshua Kaplan out of [place]. Follow-up labs including CAMILO, ESR/CRP, and comprehensive [...] Follows with psychiatric provider Clarice Lara with [facility]. Taking clonazepam 0.5 mg once daily with [...] dysfunction. #Hyperkalemia: Patient reports she was at [facility] recently at which time her potassium [...] reviewed. Dictation completed with the use of [employer] voice recognition software, prone to medical misidentifications [...] was diagnosed by Dr. Dubon out of [place], [place]. Taking methocarbamol 750 mg 3 times [...] Dictation was accomplished with the use of [employer] voice recognition software, which is prone to [...] was diagnosed by Dr. Dubon out of [place], [place]. Taking methocarbamol 750 mg 3 times [...] Dictation was accomplished with the use of [employer] voice recognition software, which is prone to [...] for 11/20/2024. #Recent fall: Patient seen at [facility] ED 11/02/2024 s/p fall at work. [...] diffuse joint pain and fatigue. Follows with on site coordinator Dr. Clark out of [place], records requested and not yet available for my review. 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 States this was diagnosed by Dr. Dubon out of [place], [place]. Taking methocarbamol 750 mg 3 times [...] reviewed. Dictation completed with the use of [employer] voice recognition software, prone to medical misidentifications [...] Patient reports history of RA. Follows with on site coordinator Dr. Clark out of [place]. Has been treated previously with Humira, Enbrel, [...] was diagnosed by Dr. Dubon out of [place], [place]. Taking methocarbamol 750 mg 3 times [...] reviewed. Dictation completed with the use of [employer] voice recognition software, prone to medical misidentifications [...] for 11/20/2024. #Recent fall: Patient seen at [facility] ED 11/02/2024 s/p fall at work. [...] diffuse joint pain and fatigue. Follows with on site coordinator Dr. Clark out of [place], records requested and not yet available for my review. 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 States this was diagnosed by Dr. Dubon out of [place], [place]. Taking methocarbamol 750 mg 3 times [...] reviewed. Dictation completed with the use of [employer] voice recognition software, prone to medical misidentifications [...] Patient reports history of RA. Follows with on site coordinator Dr. Clark out of [place]. Has been treated previously with Humira, Enbrel, [...] was diagnosed by Dr. Dubon out of [place], [place]. Taking methocarbamol 750 mg 3 times [...] reviewed. Dictation completed with the use of [employer] voice recognition software, prone to medical misidentifications [...] was diagnosed by Dr. Dubon out of [place]. Taking methocarbamol 750 mg 3 times [...] Dictation was accomplished with the use of [employer] voice recognition software, which is prone to [...] rib syndrome: Follows with Dr. Dubon with [facility]. Underwent repair 12/17/2024. #Ventral hernia: Surgical [...] arthritis: + Rheumatoid factor (152). Follows with on site coordinator Dr. Joshua Kaplan out of [place]. Follow-up labs including CAMILO, ESR/CRP, and comprehensive [...] Follows with psychiatric provider Clarice Lara with [facility]. Taking clonazepam 0.5 mg once daily with [...] dysfunction. #Hyperkalemia: Patient reports she was at [facility] recently at which time her potassium [...] reviewed. Dictation completed with the use of [employer] voice recognition software, prone to medical misidentifications [...] Patient requesting urgent colonoscopy per recommendation of [facility] surgeon Jewel Dubon. On review of [...] TID without symptom improvement. Follows with paint line supervisor Dr. Trivedi. Historically the patient has tried [...] reviewed. Dictation completed with the use of [employer] voice recognition software, prone to medical misidentifications [...] ER follow-up hospital follow-up. María presented to [facility] ED 04/19/2025 with chief complaint [...] any pain medication. Previously followed with paint line supervisor Dr. Trivedi who provided steroid injections. Historically [...] added opioid use. WIll refer to paint line supervisor with goal of establishing safe pain management regimen. #RA: Follows with Joshua Kaplan MD out of [place]. Discussed possibility of chronic pain being related [...] reviewed. Dictation completed with the use of [employer] voice recognition software, prone to medical misidentifications [...] ER follow-up hospital follow-up. María presented to [facility] ED 04/19/2025 with chief complaint [...] any pain medication. Previously followed with paint line supervisor Dr. Trivedi who provided steroid injections. Historically [...] added opioid use. WIll refer to paint line supervisor with goal of establishing safe pain management regimen. #RA: Follows with Joshua Kaplan MD out of [place]. Discussed possibility of chronic pain being related [...] reviewed. Dictation completed with the use of [employer] voice recognition software, prone to medical misidentifications [...] rib syndrome: Follows with Dr. Dubon with [facility]. Underwent repair 12/17/2024. #Ventral hernia: Surgical [...] arthritis: + Rheumatoid factor (152). Follows with on site coordinator Dr. Joshua Kaplan out of [place]. Follow-up labs including CAMILO, ESR/CRP, and comprehensive [...] Follows with psychiatric provider Clarice Lara with [facility]. Taking clonazepam 0.5 mg once daily with [...] dysfunction. #Hyperkalemia: Patient reports she was at [facility] ED recently at which time her [...] reviewed. Dictation completed with the use of [employer] voice recognition software, prone to medical misidentifications [...] for 11/20/2024. #Recent fall: Patient seen at [facility] ED 11/02/2024 s/p fall at work. [...] diffuse joint pain and fatigue. Follows with on site coordinator Dr. Clark out of [place], records requested and not yet available for my review. 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 States this was diagnosed by Dr. Dubon out of [place], [place]. Taking methocarbamol 750 mg 3 times [...] reviewed. Dictation completed with the use of Wonderswamp voice recognition software, prone to medical misidentifications [...] for 11/20/2024. #Recent fall: Patient seen at [facility] ED 11/02/2024 s/p fall at work. [...] diffuse joint pain and fatigue. Follows with on site coordinator Dr. Clark out of [place], records requested and not yet available for my review. 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 States this was diagnosed by Dr. Dubon out of [place], [place]. Taking methocarbamol 750 mg 3 times [...] reviewed. Dictation completed with the use of Wonderswamp voice recognition software, prone to medical misidentifications [...] ER follow-up hospital follow-up. María presented to [facility] ED 04/19/2025 with chief complaint [...] any pain medication. Previously followed with paint line supervisor Dr. Trivedi who provided steroid injections. Historically [...] added opioid use. WIll refer to paint line supervisor with goal of establishing safe pain management regimen. #RA: Follows with Joshua Kaplan MD out of [place]. Discussed possibility of chronic pain being related [...] reviewed. Dictation completed with the use of Wonderswamp voice recognition software, prone to medical misidentifications [...] for 11/20/2024. #Recent fall: Patient seen at [facility] ED 11/02/2024 s/p fall at work. [...] diffuse joint pain and fatigue. Follows with on site coordinator Dr. Clark out of [place], records requested and not yet available for my review. 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 States this was diagnosed by Dr. Dubon out of [place], [place]. Taking methocarbamol 750 mg 3 times [...] reviewed. Dictation completed with the use of Wondersw[employer] voice recognition software, prone to medical misidentifications [...] Tissue Head Neck 02/03/2025 Comp. Metabolic Panel [id number] 2023 Anti-Mi-2 Ab (RDL)-[id number] 12/13/2024 Anti-Ro (SS-A) Ab (RDL)-[id number] 5 Anti-La (SS-B) Ab (RDL)-[id number] 5 CREATINE KINASE AND CKMB 12/13/2024 Insurance Providers Payer Name Payer Address Payer Phone Subscriber Number Group Number Insured Name Patient Relationship to Insured Coverage Start Date Coverage End Date [facility] [address] [address] [place] [address] [id number] [phone] María Phillips Self - patient is [...]
--- OUTSIDE RECORDS SUMMARY | 2025-10-26 17:00 | XMS_ITS | Clinical Summary ---
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); Abnormal MRI from Last 3 Months Social History Tobacco Use Types Packs/Day Years Used Date Smoking Tobacco: Never Assessed Comments Unknown Sex and Gender Information Value Date Recorded Sex Assigned at Not on file Legal Sex Female 1:11 PM EDT Gender Identity Not on file Sexual Orientation Not on file Plan of Treatment Upcoming Encounters Date Type Department Care Team (Late st Contact Info) Description 12/17/2025 2:00 PM EST Office Visit [facility] Neurology at [address] Neurology at [address] [address] Evy Aguero MD [address] [place] [address] In Person with Physician Health Maintenance Due Date Last Done Comments Blood Pressure 1967 Depression Screening 1979 Hepatitis C Screening 1985 Pap Smear 1988 Cervical Cancer Screening 1997 HPV/Cotest 1997 CT Colonography 2012 FIT 2012 FOBT 2012 Multitarget Stool DNA (Cologuard) 2012 Sigmoidoscopy 2012 Zoster Vaccine (1 of 2) 2017 COVID-19 Vaccine ( season) 2025 02/02/2022, 02/02/2022, 07/05/2021, Additional history exists Influenza Vaccine (#1) 2025 , 07/28/2023, 09/19/2022, Additional history exists Breast Cancer Screening 02/05/2027 02/05/2025, 02/05 DTaP,Tdap,and Td Vaccines (3 - Td or Tdap) 01/09/2029 01/09/2019, 06/01/2015 Lipid Panel 10/28/2029 10/28/2024 Colonoscopy 06/05/2035 06/05/2025 Colorectal Cancer Screening 06/05/2035 Pneumococcal Vaccine: 50+ Years Completed 11/21/2024 Meningococcal B Vaccines Aged Out No longer eligible based on patient's age to complete this topic Meningococcal Vaccines Aged Out No lo nger eligible based on patient's age to complete this topic Insurance [employer] DEV[place] [id number] MULTIPLAN CAMILA QUINONEZ [id number] Care Teams Business Reporting Developer Relationship Specialty Start Date End Date Araceli Augustin PA [facility] [address] [place] [id number] PCP - General Physician Director Sales Support 08/05/25
--- OUTSIDE RECORDS SUMMARY | 2025-10-26 17:00 | XMS_ITS | Clinical Summary ---
Author Organization [facility] Address [address] [place] [address] Phone Care Team Providers Care Safety Manager Name Role Phone Vee Allan MD [...] Medical Devices Not on file Care Teams Safety Manager Relationship Specialty Start Date End Date Vee Allan MD [address] [place] [id number] PCP - General Internal Medicine 09/01/20 Additional Source Comments The information contained in this document represents components of the legal health record. It is not the complete legal health record.[facility]
--- OUTSIDE RECORDS SUMMARY | 2025-10-26 17:00 | XMS_ITS | Patient Health Record ---
Author Organization [facility] Address [address] [facility] [address] [place] [address] Care Team Providers Care Pot Pusher Name Role Phone IKER ROBLERO PA-C Primary Care Provider Unacarol bianca Latonya Lozano Unavailable [phone] Allergies Allergen (clinical drug ingredient) Drug/Non Drug Allergy documented on EMR Reaction Allergy Type Onset Date Status erythromycin ERYTHROMYCIN Skin Rash Drug Allergy A ctive Results Component Value Reference Range Notes PDF Report Reviewed date:08/20/2025 05:10:43 PM Interpretation: Performing Lab:[facility], [address], [address], [employer], Phone - [phone], Director - [place] Notes/Report: Clinical Information:SRC:UC Chlamydia/GC Amplification Reviewed date:08/20/2025 05:10:49 PM Interpretation: Performing Lab:[facility], [address], [employer], Phone - [phone], Director - [place] Notes/Report: Clinical Information:SRC:UC Chlamydia trachomatis, AZEB Negative Negative Neisseria gonorrhoeae, AZEB Negative Negative Syphilis RPR w/reflex Reviewed date:08/21/2025 07:51:06 AM Interpretation: Performing Lab:[facility], [address], [employer], Phone - [phone], Director - [place] Notes/Report: Clinical Information:SRC:UR RPR Non Reactive Non Reactive PDF Report Reviewed date:08/21/2025 07:50:23 AM Interpretation: Performing Lab:[facility], [address], [employer], Phone - [phone], Director - [place] Notes/Report: Clinical Information:SRC:UR HCV Antibody-[id number] Reviewed date:08/21/2025 07:51:12 AM Interpretation: Performing Lab:[facility], [address], [employer], Phone - [phone], [facility] Notes/Report: Clinical Information:SRC:UR Hep C Virus Ab Non Reactive Non Reactive HCV antibody alone does not differentiate between previously resolved infection and active infection. Equivocal and Reactive HCV antibody results should be followed up with an HCV RNA test to support the diagnosis of active HCV infection. M genitalium AZEB, Urine-1800 25 Reviewed date:08/21/2025 07:50:59 AM Interpretation: Performing Lab:[facility], [address], [employer], Phone - [phone], Director - [facility] Notes/Report: Clinical Information:SRC:UR Mycoplasma genitalium AZEB Negative Negative HIV Ab/p24 Ag with Reflex-08 3935 Reviewed date:08/21/2025 07:51:19 AM Interpretation: Performing Lab:[facility], [address], [employer], Phone - [phone], Director - [facility] Notes/Report: Clinical Information:SRC:UR HIV Ab/p24 Ag Screen Non Reactive Non Reactive HIV-1/HIV-2 antibodies and HIV-1 p24 antigen were NOT detected. There is no laboratory evidence of HIV infection. HIV Negative HBsAg Screen-[id number] Reviewed date:08/21/2025 07:50:52 AM Interpretation: Performing Lab:[facility], [address], [employer], Phone - [phone], Director - [facility] Notes/Report: Clinical Information:SRC:UR HBsAg Screen Negative Negative 448357-Feh IGP No Culture 30 Plus Reviewed date:07/17/2025 02:32:32 PM Interpretation: Performing Lab:[facility], [address], [employer], Phone - [phone], Director - [facility] Notes/Report: Clinical Information:VAG/CERV [id number] Dates / Results....05/26/2023 ASCUS POS HPV Other..............Post Menopausal No. of containers..01 ThinPrep Vial Clinical Information:VAG/CERV [id number] Dates / Results....05/26/2023 ASCUS POS HPV Other..............Post Menopausal No. of containers..01 ThinPrep Vial DIAGNOSIS: NEGATIVE FOR INTRAEPITHELIAL LESION OR MALIGNANCY. THIS SPECIMEN WAS RESCREENED PART OF OUR EMPLOYEE BENEFITS INSURANCE AGENT PROGRAM. Specimen adequacy: Satisfactory for evaluation. Endocervical and/or squamous metaplastic cells (endocervical component) are present. Clinician provided ICD10: Z01.419 Z11.51 Performed by: Tianna vasquez, Metal Alloy Scientist (ASCP) QC reviewed by: Tutu weaver, Metal Alloy Scientist (ASCP) . . Note: The Pap smear [...] 04:46:44 PM Interpretation: Performing Lab:[facility], [address] [facility], [address] [place] [address], Phone - [phone], [facility] - [facility] Notes/Report: Clinical Information:VAG/CERV [id number] Dates / Results....05/26/2023 ASCUS POS HPV Other..............Post Menopausal No. of containers..01 ThinPrep Vial Urinalysis, Complete-[id number] Reviewed date:07/03/2025 07:42:16 AM Interpretation: Performing Lab:[facility], [address] [facility], [place], Phone - [phone], Director - [place] Notes/Report: Clinical Information:SRC: Clinical Information:SRC: Specific [place] 1.013 1.005-1.030 pH 6.5 5.0-7.5 Urine-Color Yellow [...] Bacteria None seen None seen/Few Urine Culture, Routine-23267 7 Reviewed date:07/03/2025 07:42:29 AM Interpretation: Performing Lab:[facility] [address], Phone - [phone], Director - [place] Notes/Report: Clinical Information:SRC: Clinical Information:SRC: Urine Culture, Routine Final report Result 1 Mixed urogenital ramone 25,000-50,000 colony forming units per mL PDF Report Reviewed date:07/03/2025 07:41:07 AM Interpretation: Performing Lab:[facility] [address], Phone - [phone], Director - [place] Notes/Report: Clinical Information:SRC: Vitamin [id number] Reviewed date:12/14/2024 02:48:01 PM Interpretation: Performing Lab:[facility] [address], Phone - [phone], Director - [place] Notes/Report: Test(s) 846229-Vnn. B1, Whole Blood was developed and its performance characteristics determined by [facility]. It has not been cleared or approved by the Food and Drug Administration. Vitamin B12 045 695-5464 pg/mL Thyroxine (T4) Free, Direct- 187455 Reviewed date:12/14/2024 02:48:28 PM Interpretation: Performing Lab:[facility] [address], Phone - [phone], Director - [place] Notes/Report: Test(s) 026390-Gnf. B1, Whole Blood was developed and its performance characteristics determined by [facility]. It has not been cleared or approved by the Food and Drug Administration. T4,Free(Direct) 1.16 0.82-1.77 ng/dL TSH-712132 Reviewed date:12/14/2024 02:48:55 PM Interpretation: Performing Lab:[facility] [place], [address] [place] [address], Phone - [phone], Director - [facility] Notes/Report: Test(s) 058038-Kye. B1, Whole Blood was developed and its performance characteristics determined by [facility]. It has not been cleared or approved by the Food and Drug Administration. TSH 0.492 0.450-4.500 uIU/mL Triiodothyronine (T3), Free- 606436 Reviewed date:12/14/2024 02:48:08 PM Interpretation: Performing Lab:[facility] [place], [address] [place] [address], [place], Phone - [phone], Director - [facility] Notes/Report: Test(s) 680902-Slz. B1, Whole Blood was developed and its performance characteristics determined by [facility]. It has not been cleared or approved by the Food and Drug Administration. Triiodothyronine (T3), Free 2.9 2.0-4.4 pg/mL Vitamin D, 53-Yyvvpwo-647958 Reviewed date:12/14/2024 02:47:53 PM Interpretation: Performing Lab:[facility] [place], [address] [place] [address], [place], Phone - [phone], Director - [facility] Notes/Report: Test(s) 390418-Sxu. B1, Whole Blood was developed and its performance characteristics determined by [facility]. It has not been cleared or approved by the Food and Drug Administration. Vitamin D, 25-Hydroxy 48.0 30.0-100.0 ng/mL Vitamin D deficiency has been defined by the [place] of Medicine and an Endocrine Society practice guideline as a level of serum 25-OH vitamin D less than 20 ng/mL (1,2). The Endocrine Society went on to further define vitamin D insufficiency as a level between 21 and 29 ng/mL (2). 1. IOM ([place] of Medicine). 2010. Dietary reference intakes for calcium and D. [place]: The National Academies Press. 2. Angleica MF, Leonel NC, Sheeba MCKENNA, et al. Evaluation, treatment, and prevention of vitamin D deficiency: an Endocrine Society clinical practice guideline. JCEM. 2011 May; 96(7):0601-30. Vitamin B1 (Thiamine), Blood -446439 Reviewed date:12/14/2024 02:48:18 PM Interpretation: Performing Lab:[facility], [address] [facility], [place], Phone - [phone], [facility] Notes/Report: Test(s) 207571-Btx. B1, Whole Blood was developed and its performance characteristics determined by [facility]. It has not been cleared or approved by the Food and Drug Administration. Vit. B1, Whole Blood 131.3 66.5-200.0 nmol/L PDF Report Reviewed date:12/14/2024 02:47:46 PM Interpretation: Performing Lab:[facility] [place], [address] [facility], [place], Phone - [phone], Director - [place] Notes/Report: Test(s) 299804-Teo. B1, Whole Blood was developed and its performance characteristics determined by [employer]. It has not been cleared or approved [...] test positive, high risk on vaginal specimen (092296474651276) Cervical high risk human papillomavirus (HPV) DNA test positive (R87.810) Active confirmed Problem Postmenopausal atrophic vaginitis (44993228) Postmenopausal atrophic vaginitis (N95.2) Active confirmed Problem Cervicovaginal cytology: Low grade squamous intraepithelial lesion (798196650) Low grade squamous intraepithelial lesion on cytologic smear of cervix (LGSIL) (R87.612) Active confirmed Problem Non-toxic single thyroid nodule (040409656) Nontoxic single thyroid nodule (E04.1) Active confirmed Problem Autoimmune thyroiditis (91641170) Autoimmune thyroiditis (E06.3) Active confirmed Problem Anxiety disorder (896924964) Anxiety disorder, unspecified (F41.9) Active confirmed Problem Epidermal cyst (161795073) Epidermal cyst (L72.0) Active confirmed Problem Rheumatoid arthritis (85672257) Rheumatoid arthritis, unspecified (M06.9) Active confirmed Problem Endometrial intraepithelial neoplasia (991543048) 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) Active confirmed Problem Postcoital bleeding (61226756) Postcoital and contact bleeding (N93.0) Active confirmed Problem Unspecified abnormal finding in specimens from female genital organs (R87.9) Active confirmed Problem Menopause (760090189) Menopausal and female climacteric states (N95.1) Active confirmed Problem Anxiety state (110626768) Anxiety state, unspecified (300.00) Active confirmed Major Vital Signs Temperature 97.3 degrees Fahrenheit 07/03/2025 Blood pressure diastolic 84 mm Hg 07/03/2025 Height 62 in 07/03/2025 Blood pressure systolic 128 mm Hg 07/03/2025 Weight 161 lbs 07/03/2025 BMI 29.44 kg/m2 07/03/2025 Encounters Encounter Location Date Provider Diagnosis [address] [address] 12/05/2024 Latonya Diazueva [facility] [address] [place] [address] 02/14/2025 Latonya Diazueva [facility] [address] [place] [address] 03/06/2025 Latonyaines DiazLozano [facility] [address] [address] 12/09/2024 Latonya Lozano Other fatigue R53.83 and Menopausal and female climacteric states N95.1 [facility] [address] [facility] [address] [place] [address] 07/03/2025 Latonya Lozano Lower abdominal pain , unspecified R10.30 ; Atypical squamous cells of undetermined significance on cytologic smear of vagina (ASC-US) R87.620 ; Cervical high risk human papillomavirus (HPV) DNA test positive R87.810 and Encounter for screening for human papillomavirus (HPV) Z11.51 [facility] [address] [facility] [address] [place] [phone] 12/03/2024 Latonya Mcgeeva [facility] [address] [place] [address] 12/12/2024 Latonya Mcgeeva [facility] [address] [facility] [address] [place] [address] 01/22/2025 Latonya Mcgeeva [facility] [address] [place] [address] 02/16/2025 Latonya Mcgeeva [facility] [address] [place] [address] 06/30/2025 Latonya Lozano Dysuria R30.0 [facility] [address] [address] 08/19/2025 Latonya Lozano High risk heterosexu al behavior Z72.51 [facility] [address] [facility] [address] [place] [address] 09/09/2025 Latonya Lozano [facility] [address] [facility] [address] [place] [address] 09/18/2025 Latonya Lozano Total [address] [place] [address] 09/26/2025 Latonya Lozano Assessments Encounter Date Diagnosis [...] PCP. WE WILL CHECK VIT LEVELS TODAY. 08/19/2025 High risk heterosexual behavior (ICD-10 - Z72.51) 07/03/2025 Lower abdominal pain, unspecified (ICD-10 - [...] HAS SPINAL ISSUES. REFERRED TO DR THOMAS. 06/30/2025 Dysuria (ICD-10 - R30.0) 07/03/2025 Atypical squamous cells of undetermined significance [...] AND NEEDS TESTOSTERONE THERAPY, WILL REFER TO [facility]. WARNED PAT OF POSSIBLE VAGINAL BLEEDING. CALL IF SHE HAS ANY BLEEDING. 07/03/2025 Cervical high risk human papillomavirus (HPV) DNA test positive (ICD-10 - R87.810) DISCUSSED POSITIVE HPV TEST AND ITS SIGNIFICANCE. 07/03/2025 Encounter for screening for human papillomavirus (HPV) (ICD-10 - Z11.51) HPV TYPING WAS ORDERED WITH PAP TEST. Plan Of Treatment Pending Test Test Name Order Date Urinalysis 11/21/2017 RPR WITH REFLEX TESTING 06/27/2015 THIN PREP,HPV,KRISHNA IF HPV+ (>29YR)(DIAG) 11/21/2017 BONE DENSITY 05/04/2023 MM Digital Mammo Screening 05/04/2023 MM Digital Mammo Screening 10/14/2024 Chlamydia/GC Amplification-[id number] 2024 Insurance Providers Payer Name Payer Address Payer Phone Subscriber Number Group Number Insured Name Patient Relationship to Insured Coverage Start Date Coverage End Date [facility] [address] [address] [place] [id number] [phone] [id number] MARCUS OLSON Self - patient is the [...]
--- OUTSIDE RECORDS SUMMARY | 2025-10-26 17:01 | XMS_ITS | Data Portability ---
Author Organization [facility], [address] Address [address] [place] [address] Care Team Providers Care Psychological Operations Name Role Phone [facility] Primary Care Provi ramses Assessment No assessment recorded. Plan of Treatment Reminders Order Date Submit Date Provider Last Modified By Organization Details Last Modified Time Details Appointments None recorded. Lab rapid strep group A, throat 2022 023 [email or web address] [facility], [address] [place] [address], [address], 3 19:09:54 streptococc us group A, culture, throat 2022 023 [email or web address] [facility], [address] [place] [address], [place], [address], 3 19:09:54 Referral emergency medicine referral - left lower facial weakness and numbness x 5 days [email or web address] Emergency Department, [address] [place], [address], 4 18:35:48 Procedures None recorded. Surgeries None recorded. Imaging None recorded. Medication Orders prednisone 20 mg tablet 2022 023 [email or web address] 5 [id number], [address] [place], [address], 4 16:05:23 benzonatate 200 mg capsule 2022 023 [email or web address] 5 [id number], [address] [place], [address], 16:05:13 Patient TargetsNo targets recorded. Patient Instructions Encounter Date Encounter Id Patient Instructions Last Modified By Organization Details Last Modified Time 12/17/2022 [id number] sore throat: car e instructions [email or web address] Not [...] care for yourself at home? Take an nvrf-rvg-esaourg pain medicine. Avoid Ibuprofen, Aleve and Aspirin if . If the doctor prescribed antibiotics, take them as directed. Do not stop taking them just because you feel better. You need to take the full course of antibiotics. Be careful when taking dyyy-evc-dhutsaa cold or influenza (flu) medicines and Tylenol [...] worse. [email or web address] Not available 12/17/2022 19:07:18 05/19/2024 [id number] head or face zehra n: care instructions [...] Range : Negat aashish Not Available [facility] ([facility]) [address] [facility], [place], [address], 12/21/2022 06:07:48 12/17/1912/17/2022 rapid strep group A, throa t Unknown Analyte Normal = Negati ve Not Available [address] [place], [address], 12/17/2022 18:34:11 12/17/1912/17/2022 rapid strep group A, throa t Unknown Analyte negati ve Not Available [facility] [address] [place], [address], 12/17/2022 18:34:11 Result Notes None recorded. 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 Active 2022 ANNETTE LUPICA null, PA - [facility] 3 18:38:27 Numbness of face 457394969 Active 2023 Juan F Noe, DO [facility] [place], [place], [address] [facility] [place] - [facility] 4 16:17:43 [...] Name and Address Organization Details Recorded Time 719191 erythromy libby medicatio n hives Not available [...] Updated DateTime 3 162.56 cm 27.5 kg/m2 82482.7 8 g 97 [degF] 16 /min 98 [...] Updated DateTime 4 162.56 cm 27.5 kg/m2 21502.7 8 g 5 97.9 [degF] 18 /min 89 /min 98 % 121/82 mm[Hg] Nella Ayla PA - [facility] 4 16:07:24 Social History Question Answer Notes LastModified by OrganATOMOO Details LastModified Time Tobacco Smoking Status Current [...] Traveled Abroad? No Information not available 12/17/2022 Sex: Unknown Functional Status Question Answer Note LastModified by Organizat ion Details LastModified Time Do you use any illicit or recreational drugs? No [email or web address] Information not available 12/17/2022 Do you or have you ever used any other forms of tobacco or nicotine? No [email or web address] Information not available 12/17/2022 What is your level of alcohol consumption? Occasional Information not available 05/19/2024 Mental Status None recorded. Family History Relationship Description Onset Age of this Age Resolved Age Notes LastModified by Organization Details LastModified Time Unspecified Relation Disorder of thyroid gland [email or web address] Not available 2022 18:38:50 Medical History No [...] ICD10 Code Diagnosis IMO Codes Diagnosis [place] [id number] [place] [address] [address] 12/17/2022 17:31:11 12/17/2022 19:17:28 Sore throat 770571679 J02.9 [id number] [place] [address] [address] 05/19/2024 15:59:19 05/19/2024 16:21:39 Numbness of face 089753398 R20.0 ER now !!! Health Concerns Section Related Observation LastModified by Organization Detai ls LastModified Time None Recorded Concern Status LastModified by Organization Details LastModified Time None Recorded Advance Directives Directive None Recorded Payers Insurance Date Sequence Insurance Name Policy Number Policy Chacko Covered Member ID Chacko Member ID Guarantor Name 05/19/2024 2 [facility] [id number] [facility] 05/19/2024 1 [facility] - HA - DOS PRIOR TO 2024 (PPO) [facility] [id number] [facility] 12/17/2022 2 [employer] (POS) [facility] [id number] [facility] 05/19/2024 1 [employer] - GEHA - DOS ON OR BEFORE 11/05/2023 - GEHA (PPO) [facility] [id number] [facility] 05/02/[address] [facility] [id number] [facility] Notes Date Note Type Note [...] Narendra Diaz NP [address] [place], [address], [place] - [facility] 12/17/2022 19:11:14 05/19/2024 text/html Facial ProblemRe ported by Patient a couple of weeks. twitching in face. x5 days having facial pain. pain level is 5/10. feels slight numbness on left side of mouth. patient also notices lower facial weakness as well. no chest pain. has slight head ache Juan F Noe DO [address] [place], [address], [place] - [facility] 05/19/2024 16:42:19 OBGyn Episode No OBEpisode recorded.
--- OUTSIDE RECORDS SUMMARY | 2025-10-26 17:01 | XMS_ITS | Encounter Summary ---
Author Organization [facility] Address [address] [place] [address] Phone Care Team Providers Care Yard Brakeman Name Role Phone Vee Allan MD Primary Care Pr ovider Encounter Details Date Type Department Care Team (Late st Contact Info) Description 10/08/2020 Ancillary Orders [facility] [address] [place] [address], [address], [address] [place] [address] Finn Bone MD [address] [place] [address] [email or web address] Hand joint pain Social History Tobacco Use [...] hand documented in this encounter Care Teams Yard Brakeman Relationship Specialty Start Date End Date Vee Allan MD [address] [place] [address] PCP - General Internal Medicine 09/01/20 documented as of this encounter Additional Source Comments The information contained in this document represents components of the legal health record. It is not the complete legal health record.[facility]
--- OUTSIDE RECORDS SUMMARY | 2025-10-26 17:01 | XMS_ITS ---
Continuity of Care Document (CCD) Created on: October 26, 2025 María Phillips External Reference #: [id number] : [id number] Sex: Female Author Organization [facility] [address] [place] [address] Phone [phone] Care Team Providers Care Plate Glass Polisher Name Role Phone Vee Queen M.D Care Team Informa tijolanta Checking Clerk [phone] Problems Active Problems Provider Date Anxiety Eric [...] Medications SIG Qnty Indications Ordering Provider Date Hmmelvjehlkvy5ax Tablets 1 tabs by mouth at 11pm 1tabs Eric Shah M.D. 12/01/2022 [id number] Capsules Take 1 Capsule By Mouth 2 Times A Day Terence Olvera MD Mqnkgyzklzuyxjsuqo5y g TBPK follow package directions Unknown Vital Signs Date Vital Result Comment 12/01/2022 11:00am BP Systolic 130 mmHg BP Diastolic 70 mmHg Heart Rate 72 /min Height 64 inches 5'4 Weight 185.00 lb BMI (Body Mass Index) 31.8 kg/m2 Results Test Acquired Date Facility Test Result H/L Range N ote Cortisol 01/20/2023 [facility] Refer ce Lab Cortisol 0.6 g/dL 1 Cortisol 01/06/2023 [facility] Refer ce Lab Cortisol <pending> Cortisol 01/05/2023 [facility] Referen ce Lab Cortisol 5.3 g/dL 2 Free T4 01/05/2023 [facility] Referen ce Lab Free T4 0.98 ng/dL (0.70-1.80) TSH [facility] TSH 0.52 uIU/mL (0.4-4.2) Free T4 01/04/2023 [facility] Referen ce Lab Free T4 <pending> TSH 01/04/2023 [facility] ce Lab TSH <pending> 1 Reference [...]
--- OUTSIDE RECORDS SUMMARY | 2025-10-26 17:01 | XMS_ITS | Encounter Summary ---
Author Organization [facility] Address [address] [place] [address] Phone Care Team Providers Care Piece Worker Name Role Phone Vee Allan MD Primary Care Pr ovider Encounter Details Date Type Department Care Team (Late st Contact Info) Description 10/08/2020 Ancillary Orders [facility] [address] [place] [address], [address], [address] [place] [address] Finn Bone MD [address] [place] [address] [email or web address] Hand joint pain Social History Tobacco Use [...] hand documented in this encounter Care Teams Piece Worker Relationship Specialty Start Date End Date Vee Allan MD [address] [place] [address] PCP - General Internal Medicine 09/01/20 documented as of this encounter Additional Source Comments The information contained in this document represents components of the legal health record. It is not the complete legal health record.[facility]
--- OUTSIDE RECORDS SUMMARY | 2025-10-26 17:01 | XMS_ITS | Clinical Summary ---
Author Organization [facility] Prior to 04/05/[address] [place] [address] Care Team Providers Care Cnc Milling Machine Operator Name Role Phone Vee Allan MD [...] age to complete this topic Care Teams Cnc Milling Machine Operator Relationship Specialty Start Date End Date Vee Allan MD PCP - General Internal Medicine 12/05/19
--- OUTSIDE RECORDS SUMMARY | 2025-10-26 17:01 | XMS_ITS | Clinical Summary ---
Author Organization [facility] Address [address] [place] [address] Phone Care Team Providers Care Precision Inspector Name Role Phone Araceli Augustin Primary [...] (two) times a day. 2700 mL 09/01/2025 Active pregabalin (LYRICA) 25 mg capsule Take 1 capsule (25 mg total) by mouth 1 (one) time each day for 14 days. 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 Phillips describes increasing issues with her lower back and legs. The lumbar CT from [facility] show degenerative disc disease but not stenosis. Her description of paresthesias and leg shaking raise concerns for stenosis. Her workup at the [facility] ER did not correlate with cauda equina syndrome. She is now awaiting a lumbar spine MRI at [facility]. I be happy to review that once [...] this, is currently seeing 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 [place] at [facility], had injection in the [...] Encounters Date Type Department Care Team Description 10/08/2025 Telephone Orthopedic Surgery [facility] 175 [facility] [address] [place] [phone] Bessy Mesa MD 10/06/2025 5:46 PM EST - 10/06/2025 8:59 PM EST Emergency [facility] Emergency [address] [place] [phone] Jose Marmolejo MD Viral syndrome (Primary Dx); Right upper quadrant abdominal pain Discharge Disposition: Home or Self Care 09/24/2025 Telephone Gastroenterology [facility] 175 [facility] 175 [facility] [address] [place] [phone] Melba Bunn MD 09/15/2025 3:45 PM EST Office Visit Orthopedic Surgery [facility] 175 [facility] 140 [place] [phone] Bessy Mesa MD 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 (CMS/HCC V24, CMS/HCC V28) (Primary Dx) 09/15/2025 Telephone Orthopedic Surgery [facility] [address] [phone] Bessy Mesa MD 09/11/2025 12:30 PM EST Treatment [facility] [address] [phone] Nichelle Milian, OT 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) 09/11/2025 Telephone Orthopedic Surgery [facility] 250 175 [facility] [address] [place] [address] Bessy Mesa MD 09/04/2025 12:30 PM EDT Treatment [facility] [address] [phone] Shanell Bowen COTA/L 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) 08/28/2025 1:30 PM EDT [facility] [address] [phone] Nichelle Milian, OT 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) 08/21/2025 12:00 PM EDT Evaluation [facility] [address] [phone] Nichelle Milian, OT 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) 08/14/2025 3:30 PM EDT Office Visit Orthopedic Surgery [facility] [address] [phone] Von Mcclure MD Knee pain (Primary Dx); Post-traumatic osteoarthritis of left knee; Primary osteoarthritis of right knee 08/13/2025 Telephone Gastroenterology [facility] [address] [phone] Gia Lance NP 08/12/2025 3:45 PM EDT Office Visit Orthopedic Surgery [facility] [address] [phone] Bessy Mesa MD Wrist pain (Primary Dx); Osteochondrosis of lunate of right wrist; Surgery follow-up 08/06/2025 Results Follow-Up Gastroenterology [facility] 175 [facility] [address] [phone] Gia Lance NP 08/05/2025 Telephone Orthopedic Surgery [facility] [address] [phone] Von Mcclure MD 08/04/2025 Telephone Orthopedic Surgery [facility] [address] [phone] Bessy Mesa MD 07/29/2025 3:45 PM EDT Office Visit Orthopedic [facility] [address] [phone] Bessy Mesa MD Osteochondrosis of lunate of right wrist (Primary Dx); Surgery follow-up 07/29/2025 Telephone Orthopedic Surgery [facility] [address] [phone] Von Mcclure MD 07/28/2025 2:40 PM EDT Office Visit Gastroenterology [facility] [address] [facility] [address] [place] [address] Gia Lance, NICOLE Erosive gastropathy (Primary Dx); Abdominal pain, chronic, right upper quadrant; History of Helicobacter pylori infection; Esophageal dysmotility; Tobacco use disorder from Last 3 Months Immunizations Immunization Administration Dates Next Due Hepatitis B (Rxbqhte-R-Yoqoo , Recombivax HB-Adult) 19yo and older 02/21/2022,01/17/2022 [...] slipped rib syndrome, 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 [facility] WRIST SURGERY 11/06/2021 - 11/05/2022 Left [...] 0.5 49 Started: 1976 Smokeless Tobacco: Never Tobacco Cessation:Ready [...] 10/06/2025 2:35 PM EST Plan of Treatment Upcoming Encounters Date Type Department Care Team (Late st Contact Info) Description 11/10/2025 3:30 PM EST Office Visit Orthopedic Surgery - [place] [address] [facility] [address] [place] [address] Nichelle Archibald PA [address] [facility] [address] [place] [address] Health Maintenance Due Date Last Done Comments Non-Opioid Controlled Substance Agreement 1967 Zoster Vaccines (1 of 2) 1986 RSV Immunization Adult Patients (1 - Risk 50-74 years 1-dose series) 2017 Hepatitis B Vaccines (3 of 3 - 19+ 3-dose series) 07/20/2022 02/21/2022, 01/17/2022 Lung Cancer Screening (Low Dose CT) 10/09/2022 Depression Screening 11/06/2024 COVID-19 Vaccine ( season) 2025 02/02/2022, 07/05/2021, 06/24/2021, Additional history exists Influenza Vaccine (#1) 2025 , 07/28/2023, 09/19/2022, Additional history exists Drug Screen 04/19/2026 04/19/2025, 10/26/2024 Social Influencers of Health Screening 04/20/2026 04/20/2025 [...] eventual strength) 09/11 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 at least 35# (vs 20initial, vs [...] 07/30/2025 9:58 AM EDT Helicobacter pylori infection COLONOSCOPY Routine 06/05/2025 12:23 PM EDT Diarrhea, unspecified type Change in bowel habits DRUG ABUSE SCREEN 8A PANEL, URINE STAT 04/19/2025 4:16 PM EDT MG MAMMO DIGITAL SCREENING W SG BILAT Routine 02/05/2025 10:40 AM EDT Encounter for screening mammogram for malignant neoplasm of breast LIPID PANEL WITH REFLEX TO DIRECT LDL Routine 10/28/2024 2:36 PM EST Atrophic arthritis (CMS/HCC V24, CMS/HCC V28) Routine general medical examination at a [facility] facility Screening for lipoid disorders Screening for [...] reflex microscopic (10/06/2025 6:26 PM EST) Specific [place] Urine 1.013 1.003 - 1.030 LAB URINALYSIS - AUTOMATED METHOD 10/06/2025 7:03 PM [facility] pH, Urine 6.0 5.0 - 8.0 pH LAB URINALYSIS - AUTOMATED METHOD 10/06/2025 7:03 PM [facility] Leukocytes, Urine Negative Negative LAB URINALYSIS - AUTOMATED METHOD 10/06/2025 7:03 PM [facility] Nitrite, Urine Negative Negative LAB URINALYSIS - AUTOMATED METHOD 10/06/2025 7:03 PM [facility] Protein, Urine Negative <=Trace mg/dL LAB URINALYSIS - AUTOMATED METHOD 10/06/2025 7:03 PM [facility] Glucose, Urine Negative Negative mg/dL LAB URINALYSIS - AUTOMATED METHOD 10/06/2025 7:03 PM [facility] Ketones, Urine Negative Negative mg/dL LAB URINALYSIS - AUTOMATED METHOD 10/06/2025 7:03 PM [facility] Urobilinogen, Urine 0.2 0.2 - 1.0 mg/dL LAB URINALYSIS - AUTOMATED METHOD 10/06/2025 7:03 PM [facility] Bilirubin, Urine Negative Negative LAB URINALYSIS - AUTOMATED METHOD 10/06/2025 7:03 PM [facility] Blood, Urine Negative Negative LAB URINALYSIS - AUTOMATED METHOD 10/06/2025 7:03 PM [facility] Urine Urine specimen obtained by clean catch procedure / Unknown Non-blood Collection / Unknown 10/06/2025 6:26 PM EST 10/06/2025 6:57 PM EST us Jose Marmolejo MD LAB URINE ORDERABLES Final Resu lt [place] ([facility] [address] [place] [address], [place] [phone] * XR Chest 2 Views (10/06/2025 5:38 PM EST) Anatomical Region Laterality Modality Body Radiographic Krystyna ging 10/07/2025 8:47 AM EST Impressions 10/07/2025 8:48 AM EST Impression: Discoid atelectasis in the left lower lung, unchanged. Telerad TL ([id number]) -------- FINAL REPORT -------- Dictated By: Dayami Diehl Dictated Date: 10/07/2025 08:47 ET Assigned Physician: Dayami Diehl Reviewed and Electronically Signed By: Dayami Diehl Signed Date: 10/07/2025 08:48 ET Workstation ID: [id number] Transcribed By: Self Edit Transcribed Date: 10/07/2025 [...] the left lower lung, unchanged. Telerad TL ([id number]) -------- FINAL REPORT -------- Dictated By: Dayami Diehl Dictated Date: 10/07/2025 08:47 ET Assigned Physician: aDyami Diehl Reviewed and Electronically Signed By: Dayami Diehl Signed Date: 10/07/2025 08:48 ET Workstation ID: [id number] Transcribed By: Self Edit Transcribed Date: 10/07/2025 08:47 ET Irais BOOTHE IMG XR PROCEDURES Final Resu lt * (ABNORMAL) CBC auto differential (10/06/2025 5:31 PM EST) WBC 8.6 4.8 - 10.8 K/mcL LAB HEMETOLOGY METHOD 10/06/2025 6:35 PM [facility] RBC 4.60 3.80 - 4.80 M/mcL LAB HEMETOLOGY METHOD 10/06/2025 6:35 PM [facility] Hemoglobin 15.0 11.5 - 16.0 g/dL LAB HEMETOLOGY METHOD 10/06/2025 6:35 PM [facility] Hematocrit 43.8 35.0 - 47.0 % LAB HEMETOLOGY METHOD 10/06/2025 6:35 PM [facility] MCV 95.2 79.0 - 98.0 FL LAB HEMETOLOGY METHOD 10/06/2025 6:35 PM [facility] MCH 32.6(H) 27.0 - 32.0 pcg LAB HEMETOLOGY METHOD 10/06/2025 6:35 PM [facility] MCHC 34.2 32.0 - 37.0 g/dL LAB HEMETOLOGY METHOD 10/06/2025 6:35 PM [facility] RDW 13.4 11.0 - 15.0 % LAB HEMETOLOGY METHOD 10/06/2025 6:35 PM [facility] Platelets 350 130 - 400 K/mcL LAB HEMETOLOGY METHOD 10/06/2025 6:35 PM [facility] MPV 9.4 7.0 - 11.0 FL LAB HEMETOLOGY METHOD 10/06/2025 6:35 PM [facility] NRBC 0.0 <1.0 % LAB HEMETOLOGY METHOD 10/06/2025 6:35 PM [facility] NRBC Absolute 0.00 <0.10 K/mcL LAB HEMETOLOGY METHOD 10/06/2025 6:35 PM [facility] Neutrophils Relative 59.5 % LAB HEMETOLOGY METHOD 10/06/2025 6:35 PM [facility] Lymphocytes Relative 31.5 % LAB HEMETOLOGY METHOD 10/06/2025 6:35 PM [facility] Monocytes Relative 7.1 % LAB HEMETOLOGY METHOD 10/06/2025 6:35 PM [facility] Eosinophils Relative 1.3 % LAB HEMETOLOGY METHOD 10/06/2025 6:35 PM [facility] Basophils Relative 0.3 % LAB HEMETOLOGY METHOD 10/06/2025 6:35 PM [facility] Immature Granulocytes Relative 0.3 % LAB HEMETOLOGY METHOD 10/06/2025 6:35 PM [facility] Neutrophils Absolute 5.14 1.50 - 7.00 K/mcL LAB HEMETOLOGY METHOD 10/06/2025 6:35 PM [facility] Lymphocytes Absolute 2.72 1.00 - 5.00 K/mcL LAB HEMETOLOGY METHOD 10/06/2025 6:35 PM [facility] Monocytes Absolute 0.61 0.20 - 1.00 K/mcL LAB HEMETOLOGY METHOD 10/06/2025 6:35 PM [facility] Eosinophils Absolute 0.11 0.00 - 0.50 K/[facility] LAB HEMETOLOGY METHOD 10/06/2025 6:35 PM EST [facility] Basophils Absolute 0.03 0.00 - 0.20 K/[facility] LAB HEMETOLOGY METHOD 10/06/2025 6:35 PM [facility] Immature Granulocytes Absolute 0.03 0.00 - 0.03 K/[facility] LAB HEMETOLOGY METHOD 10/06/2025 6:35 PM [facility] Blood Venous blood specimen / Unknown Venipuncture / Unknown 10/06/2025 5:31 PM EST 10/06/2025 6:25 PM EST Irais BOOTHE LAB BLOOD ORDERABLES Final R esult [facility] [address] [place] [address], * Comprehensive metabolic panel (10/06/2025 5:31 PM EST) Sodium 141 133 - 145 mmol/L 10/06/2025 7:05 PM [facility] Potassium 4.5 3.5 - 5.5 mmol/L 10/06/2025 7:05 PM [facility] Chloride 108 96 - 110 mmol/L 10/06/2025 7:05 PM [facility] CO2 26 21 - 32 mmol/L 10/06/2025 7:05 PM [facility] Anion Gap 7 3 - 11 10/06/2025 7:05 PM [facility] Glucose 78 70 - 100 mg/dL 10/06/2025 7:05 PM [facility] BUN 7 5 - 25 mg/dL 10/06/2025 7:05 PM [facility] Creatinine 0.85 0.50 - 1.10 mg/dL 10/06/2025 7:05 PM [facility] eGFR 80 >=60 mL/min/1. 73m2 10/06/2025 7:05 PM [facility] Comment:Calculation based on the Chronic Kidney Disease Epidemiology Collaboration (CKD-EPI) equation refit without adjustment for race. BUN/Creatinine Ratio 8.2 10/06/2025 7:05 PM [facility] Calcium 9.4 8.5 - 10.5 mg/dL 10/06/2025 7:05 PM [facility] AST (SGOT) 24 10 - 42 unit/L 10/06/2025 7:05 PM [facility] ALT (SGPT) 30 10 - 60 unit/L 10/06/2025 7:05 PM [facility] Alkaline Phosphatase 105 42 - 121 unit/L 10/06/2025 7:05 PM [facility] Total Protein 6.9 6.0 - 8.0 g/dL 10/06/2025 7:05 PM [facility] Albumin 4.3 3.2 - 5.0 g/dL 10/06/2025 7:05 PM [facility] Total Bilirubin 0.4 0.0 - 1.4 mg/dL 10/06/2025 7:05 PM [facility] Blood Venous blood specimen / Unknown Venipuncture / Unknown 10/06/2025 5:31 PM EST 10/06/2025 6:25 PM EST us Irais BOOTHE LAB BLOOD ORDERABLES Final R esult [facility] [address] [place] [address], * XR Wrist 3+ Views Right (09/15/2025 [...] detected Not detected 08/05/2025 2:52 PM EDT [facility] Comment: This test was performed at [facility] using a chemiluminescent immunoassay intended for [...] Food and Drug Administration. Test performed at [facility], [address] , [place], [place] [id number] Krystina Austin MD, PhD - Philosophy Faculty Stool Rectum structure / Unknown Non-blood Collection / Unknown 07/30/2025 9:58 AM EDT 07/30/2025 9:58 AM EDT Gia Lance NP LAB BODY FLUIDS AND STOOLS ROD ESCALANTE Final Result [facility] [address] [place], [place] [id number] * COLONOSCOPY Anesthesia - MAC; [place] [...] previously scheduled. Narrative 06/05/2025 12:27 PM EDT [facility] GI Patient Name: María Phillips Procedure [...] verified by the physician, the nurse, the biscuitware brusher and the fiber optics technician in the pre-procedure area in the [...] not prolapse). Procedure Code(s): --- Professional --- 53599, Colonoscopy, flexible; with biopsy, single or multiple Diagnosis Code(s): --- Professional --- R19.7, Diarrhea, unspecified CPT copyright 2020 [employer]. All rights reserved. The codes documented in this report are preliminary and upon cylinder steamer review may be revised to meet current compliance requirements. Melba Bunn MD 06/05/2025 12:27:19 PM This report has been signed electronically.Melba Bunn MD Number of Addenda: 0 Note Initiated On: 06/05/2025 11:57 AM Scope Withdrawal Time: 0 hours 6 minutes 22 seconds Scope In: 12:10:33 PM Scope Out: 12:23:27 PM Endoscopy Department at [facility] - [address] [place] [phone] Procedure Note Melba Bunn MD - 06/05/2025 [facility] GI Patient Name: María Phillips Procedure [...] the physician, the nurse, theanesthetist and the fiber optics technician in the pre-procedure area in the [...] not prolapse). Procedure Code(s): --- Professional --- 46363, Colonoscopy, flexible; with biopsy, singleor multiple Diagnosis Code(s): --- Professional --- R19.7, Diarrhea, unspecified CPT copyright 2020 [employer]. All rights reserved. The codes documented in this report are preliminary and upon cylinder steamer reviewmay be revised to meet current compliance requirements. Melba Bunn MD 06/05/2025 12:27:19 PM This report has been signed electronically.Melba Bunn MD Number of Addenda: 0 Note Initiated On: 06/05/2025 11:57 AM Scope Withdrawal Time: 0 hours 6 minutes 22 seconds Scope In: 12:10:33 PM Scope Out: 12:23:27 PM Endoscopy Department at [facility] - [address] [place] [phone] IMPRESSION: - The examined portion of the [...] MD GI~PROCEDURE ORDERABLES Fin al Result * Drug abuse screen 8a panel, urine (04/19/2025 4:16 PM EDT) Amphetamine Screen, Ur Negative Negative LAB CHEMISTRY METHOD 04/19/2025 4:58 PM EDT [facility] Comment:Certain OTC medicati ons containing ephedrine, phenylephrine, pseudoephedrine and phenylpropanolamine can cause false positive results. Barbiturate Screen, Ur Negative Negative LAB CHEMISTRY METHOD 04/19/2025 4:58 PM EDT [facility] Benzodiazepine Screen, Ur Negative Negative LAB CHEMISTRY METHOD 04/19/2025 4:58 PM EDT [facility] Cocaine Screen, Ur Negative Negative LAB CHEMISTRY METHOD 04/19/2025 4:58 PM EDT [facility] Opiate Screen, Ur Negative Negative LAB CHEMISTRY METHOD 04/19/2025 4:58 PM EDT [facility] Cannabinoid (THC) Screen, Ur Negative Negative LAB CHEMISTRY METHOD 04/19/2025 4:58 PM EDT [facility] Comment:Specimens from patie nts taking pantoprazole sodium (Protonix) have been shown to produce false positive results. Oxycodone Screen, Ur Negative Negative LAB CHEMISTRY METHOD 04/19/2025 4:58 PM EDT [facility] Fentanyl, Ur Negative Negative LAB CHEMISTRY METHOD 04/19/2025 4:58 PM EDT [facility] Urine Urine specimen obtained by clean catch procedure / Unknown Non-blood Collection / Unknown 04/19/2025 4:16 PM EDT 04/19/2025 4:28 PM EDT Narrative [facility] - 04/19/2025 4:58 PM EDT Assay cutoffs: Amphetamines 1000 ng/mL Barbiturates 200 ng/mL Benzodiazepines 200 ng/mL Cocaine 300 ng/mL Fentanyl 1 ng/mL Opiates 300 ng/mL Oxycodone 100 ng/mL THC 50 ng/mL Semi-quantitative assay for screening purposes only. Unconfirmed screening result should not be used for non-medical purposes. *ALTERNATE METHOD CONFIRMATION DONE UPON REQUEST ONLY* Jose Marmolejo MD LAB URINE ORDERABLES Final Resu lt [facility] [address] [place] [address], * MG Mammo Digital Screening w Sg bilat (02/05/2025 10:40 AM EDT) Anatomical Region Laterality Modality Breast Bilateral Mammography 02/06/2025 9:43 AM EDT Impressions 02/06/2025 9:45 AM EDT No evidence of breast malignancy. BI-RADS CATEGORY: 1 - NEGATIVE RECOMMENDATION: Screening bilateral mammogram is recommended in 1 year. Mammo Location: [facility], [address] [place] [address], [address], . -------- FINAL REPORT -------- Dictated By: Stefani Zamora Dictated Date: 02/06/2025 09:43 ET Assigned Physician: Stefani Zamora Reviewed and Electronically Signed By: Stefani Zamora Signed Date: 02/06/2025 09:45 ET Workstation ID: [id number] Transcribed By: Self Edit Transcribed Date: 02/06/2025 [...] year. Mammo Location: [facility], [address] [place] [address], [id number], . -------- FINAL REPORT -------- Dictated By: Stefani Zamora Dictated Date: 02/06/2025 09:43 ET Assigned Physician: Stefani Zamora Reviewed and Electronically Signed By: Stefani Zamora Signed Date: 02/06/2025 09:45 ET Workstation ID: [id number] Transcribed By: Self Edit Transcribed Date: 02/06/2025 [...] 4:17 PM EST [facility] Blood Venous blood specimen / Unknown Venipuncture / Unknown 10/28/2024 2:36 PM EST 10/28/2024 3:06 PM EST Araceli BOOTHE LAB BLOOD ORDERABLES Fin al Result [facility] [address] [place] [address], [place] [phone] * Hm HIV Screening (05/20/2024) HIV Screening abstracted us Historical Provider HEALTH MAINTENANCE Final Result * Hepatitis C Screening (05/20/2024) Pathologist [facility] Hepatitis C Screening abstracted Result [facility] Provider HEALTH MAINTENANCE Final Result * Cervical Cancer Screening: HPV (07/20/2023) Pathologist [facility] Cervical Cancer Screening: HPV no interpreta tion,abstr acted [facility] Provider HEALTH MAINTENANCE Final Result from Last 3 Months or Most Recently Relevant to Health Maintenance Insurance [facility] Advance Directives * Full Code - [...] currently active code status orders. Care Teams Precision Inspector Relationship Specialty Start Date End Date Araceli Augustin PA [address] [place] [phone] PCP - General 11/20/24
[2025-10-26 17:12] LABS: MANUAL DIFF FLAG NO
[2025-10-26 17:13] LABS: Hematocrit 42.4 % (37.0-47.0); Hemoglobin 14.6 g/dl (12.0-16.0); Imm Gran Abs Auto 0.01 X10*3/uL (0.00-0.03); Imm Gran Pct Auto 0.2 % (0.0-0.4); Lymphocytes Absolute Auto 2.3 X10*3/uL (1.2-4.9); Mean Corpuscular HGB Conc 34.4 g/dl (31.0-35.0); Mean Corpuscular Hemoglobin 32.5 pg (27.0-33.0); Mean Corpuscular Volume 94.4 fL (80.0-98.0); NRBC Abs Auto 0.000 X10*3/uL (0.0-0.012); NRBC Pct Auto 0.0 /100WBC (0.0-0.2); Platelet Count 309 X10*3/uL (160-400); Red Blood Count 4.49 X10*6/uL (4.20-5.50); White Blood Count 6.3 X10*3/uL (4.8-10.8)
[2025-10-26 17:29] LABS: Alanine Aminotransferase 21 U/L (0-31); Albumin Level 4.3 g/dL (3.5-5.0); Alkaline Phosphatase 94 U/L (39-117); Anion Gap 14 (12-20); Aspartate Amino Transferase 24 U/L (5-31); Blood Urea Nitrogen 8 mg/dL (9-16); Calcium 9.7 mg/dL (8.4-10.2); Carbon Dioxide 25 mmol/L (22-29); Chloride 107 mmol/L (96-108); Creatinine Clr Calc Pharmacy 92.1; Estimated Glomerular Filt Rate > 60; Potassium 3.7 mmol/L (3.3-5.1); Sodium 142 mmol/L (135-145); Total Protein 6.8 g/dL (6.5-8.0)
[2025-10-26] MEDS: Lactated Ringers 1,000 ML 999 ML IV (18:05)
[2025-10-26] MEDS: Lidocaine 4 % Patch ADH..PATCH 2 PATCH TRANSDERMA (18:05)
[2025-10-26 18:43] LABS: IDNOW Serial# 6674DD1D; Strep A Nucleic Acid Negative (Negative)
[2025-10-26 18:58] LABS: Resp Syncy Virus RNA Qual PCR NEGATIVE (Negative); SARS COV2 PCR INHOUSE NEGATIVE (Negative)
[2025-10-26 19:33] VITALS: BP 137/77; PULSE 62; RESP 19; TEMP 36.6; O2SAT 99
[2025-10-26 19:46] VITALS: BP 137/77; PULSE 62; RESP 19; TEMP 36.6; O2SAT 99
== END 2025-10-26 19:46 | disposition home or self-care (01) ==
PROVIDERS: Emergency Provider Emergency Medicine
DX: B34.9 Viral infection, unspecified (principal); R07.89 Other chest pain; M25.512 Pain in left shoulder; M54.50 Low back pain, unspecified; Z03.818 Encounter for observation for suspected exposure to other biological agents ruled out; F17.210 Nicotine dependence, cigarettes, uncomplicated
CPT/HCPCS: 36415; 71111; 73030; 80048; 80076; 85025; 86140; 87637; 87651; 93005; 96361; 96374; 96375; 99284; J0131; J1885; J7120

== ENCOUNTER → 2025-10-26 16:13 | Outpatient (BNV) | payer OTHER, SELFPAY | PROVIDERS: Emergency Provider Emergency Medicine; Visit Provider Internal Medicine Cardiovascular Disease | DX: R07.89 Other chest pain (principal) | CPT/HCPCS: 93010 ==

== ENCOUNTER → 2025-10-26 16:13 | Outpatient (BNV) | payer OTHER, SELFPAY | PROVIDERS: Emergency Provider Emergency Medicine; Visit Provider Radiology Diagnostic Radiology | DX: S22.32XA Fracture of one rib, left side, initial encounter for closed fracture (principal); Z03.89 Encounter for observation for other suspected diseases and conditions ruled out | CPT/HCPCS: 71111; 73030 ==